=== PATIENT | female | born 1940 | race Caucasian/White ===

== ENCOUNTER 2016-05-16 15:17 | Emergency (ER) | payer MEDICARE, OTHER ==
[~2016-05-16] VITALS: Ht 157.5 cm; Wt 90.7 kg
[~2016-05-16 15:17] MED LIST: AC325T PO; ACDPT PO; ALPR1T PO; ASP325TEC PO; BACL10TA PO; CA C1TAB26 PO; CYAN10007 PO; DCS100C PO; ESCI5TAB PO; FERR28TA PO; FLX20C; MAGN250T35 PO; MELA1TAB15 PO; METO1TAB28 PO; METO25TA2 PO; MULT-608 PO; NF-ESOM40C PO; OMEP-10 PO; OMG1KC PO; SIMV40TA2 PO; TMZP15C; UBID100C17 PO; UBID300C PO
--- OUTSIDE RECORDS SUMMARY | 2016-05-16 15:22 | XMS REPORT ---
Author NELLA Kahn [facility] eClinicalWorks Address Unknown Phone Unavailable Care Team Providers Care Tour Production Supervisor Name Role Phone NELLA UP CP Unavailable Allergies No Known Allergies Problems No Known Problems Medications No Known Medications Results No Known Results Summary Purpose eClinicalWorks Submission
[2016-05-16] MEDS ORDERED: ACET-2267 PO (16:16)
[2016-05-16] MEDS ORDERED: fentaNYL INJECTION 100 MCG/2 ML AMP IVP STA ×2 (16:31→18:21)
--- NOTE | 2016-05-16 16:37 | ED Fall/Injury ---
General Chief Complaint: Trauma-Non Activation Stated Complaint: FALL/COLLAR BONE INJ/R SIDE PAIN Nursing Triage Note: AMBULATED TO ROOM 07 ET STATES SHE TRIPPED IN HER BEDROOM CAUSING HER TO FALL. HIT HER CHEST ON THE DRESSER CORNER ET ALSO HIT HER CHIN ON THE DRESSER. Source: patient History of Present Illness Time seen by provider: 16:20 Initial Comments PT ARRIVES VIA POV FROM HOME PT STATES SHE TRIPPED AND FELL IN HER BEDROOM, AND HIT CHEST ON THE CORNER OF THE DRESSER, AND ALSO HIT CHIN ON DRESSER OCCURRED TODAY AT 1430 NO LOSS OF CONSCIOUSNESS NO DIZZINESS NO VISION CHANGES NO PARESTHESIAS OR MOTOR DEFICITS NO NAUSEA//VOMITING NO ABDOMINAL PAIN CHEST HURTS TO MOVE NO SHORTNESS OF BREATH NO NECK OR BACK PAIN NO DENTAL/MOUTH PAIN C/O CHIN, CHEST AND RIGHT SHOULDER PAIN PCP: DR. GALVIN--SEEN LAST WEEK FOR ROUTINE EXAM AND RIGHT BREAST PAIN X 1 MONTH--MAMMOGRAM NEXT TUESDAY Allergies and Home Medications Allergies Coded Allergies: quinine (Verified Allergy, Unknown, 11/16/05) Home Medications Acetaminophen 500 Mg Tablet 500 MG PO HS (Reported) Aspirin 325 Mg Tablet 81 MG PO DAILY (Reported) Ca Cmb No.1/Vit D3/B-6/Fa/B12 1 Each Tablet 1 EACH PO DAILY (Reported) Melatonin/Pyridoxine 1 Each Tablet 1 EACH PO HS (Reported) Metoprolol Succinate/Hctz 1 Each Tab.er.24h 1 EACH PO DAILY (Reported) Multivitamins 1 Tab Tablet 1 TAB PO DAILY (Reported) Ash 3 Polyunsat Fatty Acids 1,000 Mg Cap 1 TAB PO DAILY (Reported) Omeprazole 20 Mg Capsule.dr 40 MG PO DAILY (Reported) Simvastatin 40 Mg Tablet 1 TAB PO HS (Reported) Tramadol HCl 50 Mg Tablet #20 50 MG PO Q4H Prescribed by: ISIDRA DUPREE on 05/16/16 1824 Constitutional: no symptoms reported Eyes: No Symptoms Reported Ears, Nose, Mouth, Throat: no symptoms reported Respiratory: no symptoms reported Cardiovascular: see HPI Gastrointestinal: no symptoms reported Genitourinary: no symptoms reported Musculoskeletal: see HPI Skin: other (ABRASION TO CHEST) Psychiatric/Neurological: No Symptoms Reported Past Imfnkzw-Wimfqh-Ietxsk Hx Patient Social History Alcohol Use: Denies Use Recreational Drug Use: No Smoking Status: Never a Smoker Recent Foreign Travel: No Contact w/Someone Who Travel: No Recent Infectious Disease Expo: No Recent Hopitalizations: No Immunizations Up To Date Date of Pneumonia Vaccine: Feb 09, 2010 Date of Influenza Vaccine: Dec 14, 2013 Surgeries HX Surgeries: Yes (HIATAL HERNIA REPAIR, RIGHT KNEE REPLACEMENT, COLONOSCOPY; CABG 2006; HYST/BSO) Surgeries: Abdominal, Appendectomy, Cardiac, CABG, Gallbladder, Hysterectomy, Joint Replacement, Orthopedic Respiratory Hx Respiratory Disorders: No Cardiovascular Hx Cardiac Disorders: Yes Cardiac Disorders: Coronary Artery Disease, Heart Attack, High Cholesterol, Hypertension, Peripheral Vascular Neurological Hx Neurological Disorders: No Reproductive System Hx Reproductive Disorders: No Sexually Transmitted Disease: 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, 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 Genitourinary Hx Genitourinary Disorders: Yes Genitourinary Disorders: UTI-Chronic Gastrointestinal Hx Gastrointestinal Disorders: Yes (SPASTIC COLON/HIATAL HERNIA/GI BLEED-ULCERS ) Gastrointestinal Disorders: Gastroesophageal Reflux, Gastrointestinal Bleed, Hiatal Hernia, Ulcer Musculoskeletal Hx Musculoskeletal Disorders: Yes (RIGHT KNEE REPLACEMENT) Musculoskeletal Disorders: Arthritis Endocrine Hx Endocrine Disorders: Yes ("DIET CONTROLLED", OBESITY) Endocrine Disorders: Diabetes, Non-Insulin dep HEENT HX ENT Disorders: No Cancer Hx Cancer: No Psychosocial Hx Psychiatric Problems: Yes Behavioral Health Disorders: Anxiety Integumentary HX Skin/Integumentary Disorder: No Blood Transfusions Hx Blood Disorders: No Physical Exam Vital Signs Vital Sign - Last 12Hours 05/16/16 16:09 Temp 98.0 Pulse 65 Resp 16 B/P 173/87 Pulse Ox 98 Capillary Refill : Less Than 3 Seconds General Appearance: WD/WN HEENT: PERRL/EOMI other (BRUISING AND TENDERNESS TO CHIN. NO TRISMUS. NO INTRAORAL INJURY) Neck: other (PLACED IN C-COLLAR ON ARRIVAL) Cardiovascular: regular rate, rhythm no murmur Respiratory: normal breath sounds no respiratory distress no accessory muscle use other (ABRASION AND BRUSING TO CENTER OF UPPER CHEST WITH TENDERNESS) Gastrointestinal: normal bowel sounds non tender soft no organomegaly Extremities: no pedal edema no calf tenderness normal capillary refill other ( TENDERNESS TO ANTERIOR RIGHT SHOULDER. ) Neurologic/Psychiatric: occupational therapy co director II-XII nml as tested no motor/sensory deficits alert normal mood/affect oriented x 3 Skin: normal color warm/dry Gypsy Coma Score Best Eye Response: (4) Open Spontaneously Best Verbal Response: (5) Oriented Best Motor Response: (6) Obeys Commands Gypsy Total: 15 Splinting and Joint Reduction : Cervical Collars: [place]-Adult Progress/Results/Core Measures Results/Orders Lab Results Laboratory Tests Test 05/16/16 16:48 Range/Units Activated Partial Thromboplast Time 25 24-35 SEC Alanine Aminotransferase (ALT/SGPT) 12 0-55 U/L Albumin 3.9 3.2-4.5 G/DL Alkaline Phosphatase 69 40-136 U/L Amylase Level 36 25-125 U/L Anion Gap 9 5-14 MMOL/L Aspartate Amino Transf (AST/SGOT) 20 5-34 U/L BUN/Creatinine Ratio 22 Basophils # (Auto) 0.0 0.0-0.1 10^3/uL Basophils (%) (Auto) 0 0-10 % Blood Urea Nitrogen 25 H 7-18 MG/DL Calcium Level 9.5 8.5-10.1 MG/DL Carbon Dioxide Level 21 21-32 MMOL/L Chloride Level 112 H 98-107 MMOL/L Creatine Kinase MB 1.3 <6.6 NG/ML Creatinine 1.14 0.60-1.30 MG/DL Eosinophils # (Auto) 0.2 0.0-0.3 10^3/uL Eosinophils (%) (Auto) 3 0-10 % Estimat Glomerular Filtration Rate 46 Glucose Level 109 H 70-105 MG/DL Hematocrit 38 35-52 % Hemoglobin 12.8 11.5-16.0 G/DL INR Comment 1.0 0.8-1.4 Lymphocytes # (Auto) 3.0 1.0-4.0 X 10^3 Lymphocytes (%) (Auto) 42 12-44 % Magnesium Level 2.2 1.8-2.4 MG/DL Mean Corpuscular Hemoglobin 30 25-34 PG Mean Corpuscular Hemoglobin Concent 34 32-36 G/DL Mean Corpuscular Volume 90 80-99 FL Mean Platelet Volume 11.4 H 7.4-10.4 FL Monocytes # (Auto) 0.5 0.0-1.0 X 10^3 Monocytes (%) (Auto) 8 0-12 % Neutrophils # (Auto) 3.2 1.8-7.8 X 10^3 Neutrophils (%) (Auto) 46 42-75 % Platelet Count 170 130-400 10^3/uL Potassium Level 4.3 3.6-5.0 MMOL/L Prothrombin Time 13.1 12.2-14.7 SEC Red Blood Count 4.23 L 4.35-5.85 10^6/uL Red Cell Distribution Width 13.7 10.0-14.5 % Sodium Level 142 135-145 MMOL/L Total Bilirubin 0.3 0.1-1.0 MG/DL Total Creatine Kinase 48 29-168 U/L Total Protein 6.3 L 6.4-8.2 G/DL Troponin I < 0.30 <0.30 NG/ML White Blood Count 7.0 4.3-11.0 10^3/uL My Orders Orders-ISIDRA DUPREE DO Saline Lock/Iv-Start (05/16/16 16:22) Ekg Tracing (05/16/16 16:22) Monitor-Rhythm Ecg Trace Only (05/16/16 16:22) Ct Head/Face/Cervical Wo (05/16/16 16:22) Amylase (05/16/16 16:22) Cbc With Automated Diff (05/16/16 16:22) Comprehensive Metabolic Panel (05/16/16 16:22) Creatine Kinase (05/16/16 16:22) Creatine Kinase Mb (05/16/16 16:22) Magnesium (05/16/16 16:22) Protime With Inr (05/16/16 16:22) Partial Thromboplastin Time (05/16/16 16:22) Troponin I (05/16/16 16:22) Cervical Collar (05/16/16 16:22) Chest 1 View, Ap/Pa Only (05/16/16 16:22) Ct Chest/Abdomen/Pelvis W (05/16/16 16:22) Fentanyl Injection (Sublimaze Injection (05/16/16 16:31) Shoulder, Right, 3 Views (05/16/16 16:33) Iohexol Injection (Omnipaque 350 Mg/Ml 1 (05/16/16 17:15) Ns (Ivpb) (Sodium Chloride 0.9% Ivpb Bag (05/16/16 17:15) Saline Lock/Iv-Start (05/16/16 17:56) Ns Iv 1000 Ml (Sodium Chloride 0.9%) (05/16/16 17:56) Ketorolac Injection (Toradol Injection) (05/16/16 18:30) Fentanyl Injection (Sublimaze Injection (05/16/16 18:21) Medications Given in ED Current Medications Medications Dose Ordered Sig/Rocio Route Start Time Stop Time Status Last Admin Dose Admin Iohexol 100 ml ONCE ONCE IV 05/16/16 17:15 05/16/16 17:16 DC 05/16/16 17:36 75 ML Sodium Chloride 1,000 ml @ 0 mls/hr Q0M ONCE IV 05/16/16 17:56 05/16/16 17:57 DC 05/16/16 18:25 1,000 MLS/HR Sodium Chloride 100 ml 100 ml ONCE ONCE IV 05/16/16 17:15 05/16/16 17:16 DC 05/16/16 17:36 80 ML Vital Signs/I&O Vital Sign - Last 12Hours 05/16/16 16:09 Temp 98.0 Pulse 65 Resp 16 B/P 173/87 Pulse Ox 98 Blood Pressure Mean: 115 Progress Note : Progress Note 1820--CERVICAL COLLAR REMOVED AFTER CT RESULTS OBTAINED. PT DOES NOT C/O NECK PAIN AND NECK IS NON-TENDER ECG Initial ECG Impression Time: 15:15 Initial ECG Rate: 64 Initial ECG Rhythm: Normal Sinus Initial ECG Impression: Normal Initial ECG Comparisson: Unchanged Diagnostic Imaging Comments CT HEAD/MAXILLOFACIALS/CERVICAL SPINE--NO ACUTE PROCESS, CHRONIC CHANGES CT CHEST/ABDOMEN/PELVIS--NO ACUTE PROCESS CXR--NO ACUTE PROCESS XRAYS RIGHT SHOULDER--NO ACUTE PROCESS ALL PER RADIOLOGIST REPORTS @ 1812 Reviewed: Reviewed by Me Departure Impression Impression: Primary Impression: ANTERIOR CHEST CONTUSION Additional Impressions: Chin contusion Status post fall Disposition: 01 HOME, SELF-CARE Condition: Stable Departure-Patient Inst. Referrals: SHAHZAD GALVIN DO (PCP/Family) Primary Care Physician Patient Instructions: CHEST CONTUSION, Contusion (DC), Preventing Falls in the Older Adult Add. Discharge Instructions: ICE TO SORE AREAS AT 20 MINUTE INTERVALS ACTIVITIES TOLERATED TYLENOL 1 GRAM /MOTRIN 800 MG 4 TIMES A DAY FOR PAIN FOLLOW UP WITH YOUR DR IN 1 WEEK IF NO BETTER All discharge instructions reviewed with patient and/or family. Voiced understanding. Scripts Tramadol HCl (Ultram)50 Mg [id number] Mg PO Q4H #20 TAB Prov:ISIDRA DUPREE DO 05/16/16 ISIDRA DUPREE DO May 16, 2016 16:37
[2016-05-16 17:01] LABS: BASOPHILS % (AUTO) 0 % (0-10); EOSINOPHILS # (AUTO) 0.2 10^3/uL (0.0-0.3); EOSINOPHILS % (AUTO) 3 % (0-10); LYMPHOCYTES % (AUTO) 42 % (12-44); MEAN CORPUSCULAR HEMOGLOBIN 30 PG (25-34); MEAN CORPUSCULAR HGB CONC 34 G/DL (32-36); MEAN CORPUSCULAR VOLUME 90 FL (80-99); MEAN PLATELET VOLUME 11.4 FL (7.4-10.4); MONOCYTES # (AUTO) 0.5 X 10^3 (0.0-1.0); MONOCYTES % (AUTO) 8 % (0-12); NEUTROPHILS # (AUTO) 3.2 X 10^3 (1.8-7.8); NEUTROPHILS % (AUTO) 46 % (42-75); PLATELET COUNT 170 10^3/uL (130-400); RED BLOOD COUNT 4.23 10^6/uL (4.35-5.85); RED CELL DISTRIBUTION WIDTH 13.7 % (10.0-14.5)
[2016-05-16 17:05] LABS: PROTHROMBIN TIME PATIENT 13.1 SEC (12.2-14.7)
[2016-05-16] MEDS ORDERED: NS 100 ML (IVPB) BAG IV ONE (17:15)
[2016-05-16] MEDS ORDERED: IOHEXOL 350 MG/ML 100 ML (OMNIPAQUE 350) VIAL IV ONE (17:15)
[2016-05-16 17:16] LABS: ALANINE AMINOTRANSFERASE 12 U/L (0-55); ALBUMIN 3.9 G/DL (3.2-4.5); AMYLASE 36 U/L (25-125); ANION GAP 9 MMOL/L (5-14); ASPARTATE AMINO TRANSFERASE 20 U/L (5-34); BILIRUBIN,TOTAL 0.3 MG/DL (0.1-1.0); BLOOD UREA NITROGEN 25 MG/DL (7-18); BUN/CREATININE RATIO 22; CALCIUM 9.5 MG/DL (8.5-10.1); CARBON DIOXIDE 21 MMOL/L (21-32); CHLORIDE 112 MMOL/L (98-107); CREATINE KINASE 48 U/L (29-168); CREATININE SERUM 1.14 MG/DL (0.60-1.30); GFR ESTIMATED 46; GLUCOSE 109 MG/DL (70-105); MAGNESIUM 2.2 MG/DL (1.8-2.4); POTASSIUM 4.3 MMOL/L (3.6-5.0); SODIUM 142 MMOL/L (135-145); TOTAL PROTEIN 6.3 G/DL (6.4-8.2)
--- NOTE | 2016-05-16 17:20 | Diagnostic Imaging Report ---
INDICATION: Fall with right shoulder pain. DISCUSSION: Three views of the right shoulder were obtained, no comparison. Moderate degenerative changes are noted within the acromioclavicular joint. Mild degenerative changes are present within the glenohumeral joint. Alignment is anatomic. No fracture or dislocation. Soft tissues are unremarkable. IMPRESSION: 1. No acute abnormality identified within the right shoulder. Dictated by: Dictated on workstation # [id number]
[2016-05-16 17:22] LABS: TROPONIN I < 0.30 NG/ML (<0.30)
--- NOTE | 2016-05-16 17:28 | Diagnostic Imaging Report ---
INDICATION: Fall with subsequent chest pain. DISCUSSION: Single portable supine view of the chest was obtained, comparison 05/15/2014. Median sternotomy is stable. Scarring within the lingula is stable. Mild elevation of the right hemidiaphragm. No focal consolidation, pleural fluid, or pneumothorax. IMPRESSION: 1. No acute cardiopulmonary process. Dictated by: Dictated on workstation # [id number]
[2016-05-16] MEDS ORDERED: NS IV 1000 ML 1,000 ML IV ONE (17:56)
--- NOTE | 2016-05-16 18:05 | Diagnostic Imaging Report ---
Procedure: CT head, face, and cervical spine without contrast. Technique: Multiple contiguous axial images were obtained through the head, neck, and facial bones without the use of intravenous contrast. Sagittal and coronal reformations through the cervical spine and facial bones were also performed. Indication: Patient fell and hit chin on a dresser, head and neck pain with bruising on the chin. Comparison: 11/23/2012. Discussion: Chronic appearing lacunar infarct within the right basal ganglia. No acute intracranial hemorrhage, mass, midline shift or hydrocephalus. The ventricles and sulci are normal size and configuration for age. The patient is edentulous. No acute facial fracture identified. The visualized orbits, paranasal sinuses, mastoid air cells and calvarium are unremarkable. Moderate degenerative changes are noted diffusely throughout the cervical spine. No acute fracture or subluxation. The visualized paraspinal soft tissues are unremarkable. Impression: 1. Senescent intracranial changes, as described. No acute intracranial abnormality identified. 2. No acute facial fracture identified. 3. Degenerative changes of the cervical spine. No acute fracture identified. Dictated by: Dictated on workstation # [id number]
--- NOTE | 2016-05-16 18:06 | Diagnostic Imaging Report ---
Procedure: CT chest, abdomen, and pelvis with contrast. Technique: Multiple contiguous axial images were obtained through the chest, abdomen, and pelvis after the administration of intravenous contrast. Indication: Fall with generalized body pain. Comparison: None. Discussion: Subsegmental atelectasis is present within the bilateral lung bases. No focal consolidation or pulmonary nodule. No pneumothorax. Normal heart size. No pleural or pericardial fluid. The thoracic aorta is normal in caliber and configuration. The pulmonary arteries are normal in caliber. Median sternotomy is present. No mediastinal, hilar or axillary adenopathy. No acute osseous abnormality is identified. Small hiatal hernia. The gallbladder is likely surgically absent. The liver, pancreas, spleen, adrenal glands, kidneys and urinary bladder are unremarkable. Uterus is surgically absent. Mild diverticulosis with no secondary evidence for diverticulitis. Mild constipation. No obstruction, pneumatosis or pneumoperitoneum. The abdominal aorta is normal in caliber. No ascites or pathologically enlarged lymph nodes are identified. No acute osseous abnormality identified. Impression: 1. No acute abnormality identified within the chest. 2. Mild constipation. 3. Mild diverticulosis. Dictated by: Dictated on workstation # [id number]
[2016-05-16] MEDS ORDERED: TRAM-42 PO (18:24)
[2016-05-16] MEDS ORDERED: KETOROLAC 30 MG/ML VIAL IVP ONE (18:30)
[2016-05-16] MEDS ORDERED: RX-TRAMADOL 50 MG (ULTRAM) TAB PPK#4 PO STA (19:18)
[2016-05-16 19:29] VITALS: BP 167/79
== END 2016-05-16 19:29 | disposition home or self-care (01) ==
LOC: EDUNIT# 15:17 → ER 15:19
DX: S20.311A Abrasion of right front wall of thorax, initial encounter (principal); S20.312A Abrasion of left front wall of thorax, initial encounter; S00.83XA Contusion of other part of head, initial encounter; K57.30 Diverticulosis of large intestine without perforation or abscess without bleeding; M47.812 Spondylosis without myelopathy or radiculopathy, cervical region; K44.9 Diaphragmatic hernia without obstruction or gangrene; I10 Essential (primary) hypertension; I25.10 Atherosclerotic heart disease of native coronary artery without angina pectoris; E66.9 Obesity, unspecified; I25.2 Old myocardial infarction; Z79.82 Long term (current) use of aspirin; Z79.899 Other long term (current) drug therapy; Z95.1 Presence of aortocoronary bypass graft; W18.09XA Striking against other object with subsequent fall, initial encounter; Y92.013 Bedroom of single-family (private) house as the place of occurrence of the external cause; Y99.8 Other external cause status
CPT/HCPCS: 36415; 70450; 70486; 71010; 71260; 72125; 73030; 74177; 80053; 82150; 82550; 82553; 83735; 84484; 85025; 85610; 85730; 93005; 93041; 96361; 96374; 96375; 96376

== ENCOUNTER → 2016-05-28 | Outpatient (CLI) | payer MEDICARE, OTHER ==
[~2016-05-28] MED LIST changes: +ACET-2267 PO; +TRAM-42 PO
--- NOTE | 2016-05-28 16:49 | Diagnostic Imaging Report ---
EXAMINATION: Bilateral breast ultrasound. INDICATION: Bilateral breast pain in the medial aspect of each breast. FINDINGS: The four quadrants and retroareolar region of each breast were scanned with no abnormality seen. IMPRESSION: Negative study. Clinical followup of areas of pain recommended. ACR BI-RADS Category 1: Negative. Result letter will be mailed to the patient. Note: At least 10% of breast cancer is not imaged by mammography. Dictated by: Dictated on workstation # [id number]
--- NOTE | 2016-05-28 16:50 | Diagnostic Imaging Report ---
EXAMINATION: Bilateral breast digital diagnostic mammogram with CAD. The current study was also evaluated with a Computer Aided Detection (CAD) system. INDICATION: Bilateral medial breast pain. COMPARISON: 06/19/12. FINDINGS: The breasts are composed of scattered fibroglandular densities. There are benign-appearing calcifications seen. No mass, architectural distortion or suspicious calcification seen. IMPRESSION: No mammographic evidence of malignancy. Ultrasound evaluation pending. ACR BI-RADS Category 0: Incomplete. (Needs additional imaging evaluation). Result letter will be mailed to the patient. Note: At least 10% of breast cancer is not imaged by mammography. Dictated by: Dictated on workstation # [id number]
== END ==
LOC: RAD 09:08
PROVIDERS: ATTEND Family Medicine
DX: N64.4 Mastodynia (principal)
CPT/HCPCS: 77066

== ENCOUNTER 2016-10-14 14:45 | Outpatient (RCR) | payer MEDICARE, OTHER ==
[~2016-10-14 14:45] MED LIST changes: -METO1TAB28 PO; +METO1TAB35 PO
== END 2016-10-14 15:31 | disposition home or self-care (01) ==
PROVIDERS: ATTEND Family Medicine
DX: M51.36 Other intervertebral disc degeneration, lumbar region (principal)

== ENCOUNTER → 2017-07-09 | Outpatient (CLI) | payer MEDICARE, OTHER ==
--- NOTE | 2017-07-09 10:26 | Diagnostic Imaging Report ---
PROCEDURE: MR imaging cervical spine without contrast. TECHNIQUE: Multiplanar, multisequence MR imaging of the cervical spine was performed without contrast. INDICATION: Neck pain with right arm radiculopathy. COMPARISON: None available. FINDINGS: Normal alignment of the cervical spine. No fracture or marrow replacing process. No features of active facet synovitis. The cervical cord is normal in size and signal. The cerebellar tonsils are normal in position. No cervical lymphadenopathy. C2-C3: No spinal stenosis or foraminal narrowing. C3-C4: No spinal stenosis. Left uncovertebral joint hypertrophy results in moderate to severe left foraminal narrowing. C4-C5: No spinal stenosis. Right uncovertebral joint hypertrophy and facet osteoarthritis results in moderate right foraminal narrowing. C5-C6: Central and bilateral paracentral disc osteophyte complex with ligamentum flavum thickening results in mild spinal stenosis without mass effect on the cord. Moderate left and mild right foraminal narrowing due to facet and uncovertebral joint hypertrophy. C6-C7: Central and bilateral paracentral disc osteophyte complex results in minimal spinal stenosis. No significant foraminal narrowing. C7-T1: No spinal stenosis or foraminal narrowing. IMPRESSION: 1. Mild degenerative disc disease and posterior element hypertrophy at C5-C6 causes mild spinal stenosis. No additional foci of significant spinal canal narrowing. 2. Varying degrees of neuroforaminal narrowing are present and greatest on the left at C3-C4 with severe stenosis. Dictated by: Dictated on workstation # [id number]
== END ==
LOC: RAD 09:13
PROVIDERS: ATTEND Family Medicine
DX: M48.02 Spinal stenosis, cervical region (principal); M99.71 Connective tissue and disc stenosis of intervertebral foramina of cervical region; M50.322 Other cervical disc degeneration at C5-C6 level
CPT/HCPCS: 72141

== ENCOUNTER 2017-09-05 11:15 | Outpatient (RCR) | payer MEDICARE, OTHER | END 2017-09-05 13:09 | disposition home or self-care (01) | PROVIDERS: ATTEND Nurse Practitioner Family | DX: M19.90 Unspecified osteoarthritis, unspecified site (principal); M48.00 Spinal stenosis, site unspecified ==

== ENCOUNTER 2017-11-18 16:20 | Emergency (ER) | payer MEDICARE, OTHER ==
[~2017-11-18] VITALS: Ht 157.5 cm; Wt 95.3 kg
--- OUTSIDE RECORDS SUMMARY | 2017-11-18 16:25 | XMS REPORT ---
Author NELLA Kahn [facility] eClinicalWorks Address Unknown Phone Unavailable Care Team Providers Care Chief Digital Media Officer Name Role Phone NELLA UP CP Unavailable Allergies No Known Allergies Problems No Known Problems Medications No Known Medications Results No Known Results Summary Purpose eClinicalWorks Submission
--- OUTSIDE RECORDS SUMMARY | 2017-11-18 16:26 | XMS REPORT | Continuity of Care Document ---
Author Author [facility] Organization [facility] Address Unknown Phone Unavailable Allergies Active Description Code Type Severity Reaction Onset Reported/Identified Relationship to Patient Clinical Status Yes quinine [id number] Drug Allergy Unknown N/A 12/19/2014 Medications There is no data. Problems Date Dx Coded Attending Type Code Diagnosis Diagnosed By 02/04/1308 LESVIA GALLAGHER APRN Ot M19.90 UNSPECIFIED OSTEOARTHRITIS, UNSPECIFIED 02/04/1308 LESVIA GALLAGHER APRN Ot M48.00 SPINAL STENOSIS, SITE UNSPECIFIED 02/03/1530 SHAHZAD GUAMAN DO Ot M51.36 OTHER INTERVERTEBRAL DISC DEGENERATION, 09/23/2011 Ot 722.52 LUMB/ LUMBOSAC DISC DEGEN 09/23/2011 Ot V57.1 PHYSICAL THERAPY NEC 11/23/2012 MARY LOVETT, GUILLERMO Atkins Ot 401.9 HYPERTENSION NOS 11/23/2012 MARY LOVETT, GUILLERMO Atkins Ot 433.10 CAROTID ARTERY OCCLUSION W O CEREBRAL IN 11/23/2012 MARY LOVETT, GUILLERMO Atkins Ot 784.0 HEADACHE 11/23/2012 MARY LOVETT, GUILLERMO Atkins Ot V58.69 OTH MED,LT,CURRENT USE 05/16/2014 Ot 401.9 HYPERTENSION NOS 05/16/2014 Ot 414.00 CORON ATHEROSCLER NOS TYPE VESSEL, NATIV 05/16/2014 Ot 530.81 ESOPHAGEAL REFLUX 05/16/2014 Ot 786.59 CHEST PAIN NEC 05/16/2014 Ot V45.81 AORTOCORONARY BYPASS 06/10/2014 SHAHZAD GUAMAN DO S Ot 724.1 06/10/2014 SHAHZAD GUAMAN DO S Ot V57.1 06/19/2014 SHAHZAD GUAMAN DO S Ot 724.1 PAIN IN THORACIC SPINE 06/19/2014 SHAHZAD GUAMAN DO Ot V57.1 PHYSICAL THERAPY NEC 12/19/2014 JIMENEZ PATRICK CHIN Ot K31.7 POLYP OF STOMACH AND DUODENUM 12/19/2014 JIMENEZ PATRICK CHIN Ot K52.9 NONINFECTIVE GASTROENTERITIS AND COLITIS 12/19/2014 JIMENEZ PATRICK CHIN Ot K57.90 DVRTCLOS OF INTEST, PART UNSP, W/O PERF 12/19/2014 PATRICK JIMENEZ DO Ot Z12.11 ENCOUNTER FOR SCREENING FOR MALIGNANT NE 12/19/2014 PATRICK JIMENEZ DO Ot Z80.0 FAMILY HISTORY OF MALIGNANT NEOPLASM OF 05/16/2016 Ot 611.71 MASTODYNIA 05/16/2016 Ot Z01.818 ENCOUNTER FOR OTHER PREPROCEDURAL EXAMIN 05/16/2016 Ot Z12.11 ENCOUNTER FOR SCREENING FOR MALIGNANT NE 05/16/2016 Ot Z80.0 FAMILY HISTORY OF MALIGNANT NEOPLASM OF 05/16/2016 ISIDRA DUPREE DO Ot E66.9 OBESITY, UNSPECIFIED 05/16/2016 ISIDRA DUPREE DO Ot I10 ESSENTIAL (PRIMARY) HYPERTENSION 05/16/2016 ISIDRA DUPREE DO Ot I25.10 ATHSCL HEART DISEASE OF [place] CORONARY 05/16/2016 ISIDRA DUPREE DO Ot I25.2 OLD MYOCARDIAL INFARCTION 05/16/2016 ISIDRA DUPREE DO, Ot K44.9 DIAPHRAGMATIC HERNIA WITHOUT OBSTRUCTION 05/16/2016 ISIDRA DUPREE DO Ot K57.30 DVRTCLOS OF LG INT W/O PERFORATION OR AB 05/16/2016 ISIDRA DUPREE DO, Ot M47.812 SPONDYLOSIS W/O MYELOPATHY OR RADICULOPA 05/16/2016 ISIDRA DUPREE DO Ot S00.83XA CONTUSION OF OTHER PART OF HEAD, INITIAL 05/16/2016 ISIDRA DUPREE DO Ot S20.311A ABRASION OF RIGHT FRONT WALL OF THORAX, 05/16/2016 ISIDRA DUPREE DO Ot S20.312A ABRASION OF LEFT FRONT WALL OF THORAX, I 05/16/2016 ISIDRA DUPREE DO, Ot S29.9XXA UNSPECIFIED INJURY OF THORAX, INITIAL EN 05/16/2016 ISIDRA DUPREE DO Ot W18.09XA STRIKING AGAINST OTH OBJECT W SUBSEQUENT 05/16/2016 ISIDRA DUPREE DO Ot Y92.013 BEDROOM OF SINGLE-FAMILY (PRIVATE) HOUSE 05/16/2016 JOON ISIDRA CHIN Ot Y99.8 OTHER EXTERNAL CAUSE STATUS 05/16/2016 MASSEY ISIDRA CHIN Ot 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 05/16/2016 JOON ISIDRA CHIN Ot Z79.899 OTHER SHELTER (CURRENT) DRUG THERAPY 05/16/2016 JOON ISIDRA CHIN Ot Z95.1 PRESENCE OF AORTOCORONARY BYPASS GRAFT 05/18/2016 JOON ISIDRA CHIN Ot E66.9 OBESITY, UNSPECIFIED 05/18/2016 JOON ISIDRA CHIN Ot I10 ESSENTIAL (PRIMARY) HYPERTENSION 05/18/2016 JOON ISIDRA CHIN Ot I25.10 ATHSCL HEART DISEASE OF [place] CORONARY 05/18/2016 JOON ISIDRA CHIN Ot I25.2 OLD MYOCARDIAL INFARCTION 05/18/2016 JOON ISIDRA CHIN Ot K44.9 DIAPHRAGMATIC HERNIA WITHOUT OBSTRUCTION 05/18/2016 JOON ISIDRA CHIN Ot K57.30 DVRTCLOS OF LG INT W/O PERFORATION OR AB 05/18/2016 JOON ISIDRA CHIN Ot M47.812 SPONDYLOSIS W/O MYELOPATHY OR RADICULOPA 05/18/2016 JOON ISIDRA CHIN Ot S00.83XA CONTUSION OF OTHER PART OF HEAD, INITIAL 05/18/2016 JOON ISIDRA CHIN Ot S20.311A ABRASION OF RIGHT FRONT WALL OF THORAX, 05/18/2016 JOON ISIDRA CHIN Ot S20.312A ABRASION OF LEFT FRONT WALL OF THORAX, I 05/18/2016 JOON ISIDRA CHIN Ot S29.9XXA UNSPECIFIED INJURY OF THORAX, INITIAL EN 05/18/2016 JOON ISIDRA CHIN Ot W18.09XA STRIKING AGAINST OTH OBJECT W SUBSEQUENT 05/18/2016 JOON ISIDRA CHIN Ot Y92.013 BEDROOM OF SINGLE-FAMILY (PRIVATE) HOUSE 05/18/2016 JOON ISIDRA CHIN Ot Y99.8 OTHER EXTERNAL CAUSE STATUS 05/18/2016 JOON ISIDRA CHIN Ot Z79.82 SHELTER (CURRENT) USE OF ASPIRIN 05/18/2016 JOONISIDRA Santana DO Ot Z79.899 OTHER WAX PATTERN REPAIRER (CURRENT) DRUG THERAPY 05/18/2016 ISIDRA DUPREE DO Ot Z95.1 PRESENCE OF AORTOCORONARY BYPASS GRAFT 05/28/2016 Ot 611.71 MASTODYNIA 05/28/2016 Ot Z01.818 ENCOUNTER FOR OTHER PREPROCEDURAL EXAMIN 05/28/2016 Ot Z12.11 ENCOUNTER FOR SCREENING FOR MALIGNANT NE 05/28/2016 Ot Z80.0 FAMILY HISTORY OF MALIGNANT NEOPLASM OF 05/28/2016 ORENDER DO, SHAHZAD S Ot N64.4 MASTODYNIA 05/28/2016 ORENDER DO, SHAHZAD S Ot N64.4 MASTODYNIA 05/28/2016 Ot 611.71 MASTODYNIA 05/28/2016 Ot Z01.818 ENCOUNTER FOR OTHER PREPROCEDURAL EXAMIN 05/28/2016 Ot Z12.11 ENCOUNTER FOR SCREENING FOR MALIGNANT NE 05/28/2016 Ot Z80.0 FAMILY HISTORY OF MALIGNANT NEOPLASM OF 05/28/2016 GUNNERNDER DO, SHAHZAD S Ot N64.4 [facility]STODYNIA 05/28/[facility] S Ot N64.4 MASTODYNIA 05/28/2016 ORENDER DO, SHAHZAD S Ot N64.4 MASTODYNIA 05/29/2016 ORENDER DO, SHAHZAD S Ot N64.4 MASTODYNIA 05/31/2016 GUNNERNDER DO, SHAHZAD S Ot N64.4 MASTODYNIA 06/18/2016 GUNNERNDER DO, SHAHZAD S Ot N64.4 MASTODYNIA 09/23/2016 GUNNERNDER DO, SHAHZAD S Ot M51.36 OTHER INTERVERTEBRAL DISC DEGENERATION, 09/24/2016 GUNNERNDER DO, SHAHZAD S Ot M51.36 OTHER INTERVERTEBRAL DISC DEGENERATION, 09/30/2016 GNUNERNDER DO, SHAHZAD S Ot M51.36 OTHER INTERVERTEBRAL DISC DEGENERATION, 10/14/2016 GUNNERNDER DO, SHAHZAD S Ot M51.36 OTHER INTERVERTEBRAL DISC DEGENERATION, 07/16/2017 GLENIS CHIN SHAHZAD S Ot M48.02 SPINAL STENOSIS, CERVICAL REGION 07/16/2017 GLENIS CHIN SHAHZAD S Ot 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 07/16/2017 GLENIS CHIN SHAHZAD S Ot M99.71 CONN TISS AND DISC STENOSIS OF INTVRT FO 07/29/2017 GUNNERNDER DO, SHAHZAD Roberts Ot M48.02 SPINAL STENOSIS, CERVICAL REGION 07/29/2017 GUNNERNDER DO, SHAHZAD Roberts Ot 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 Results Test Result Range Complete blood count (CBC) with automated white blood cell (WBC) differential - 05/16/16 16:48 Blood leukocytes automated count (number/volume) 7.0 10*3/uL 4.3-11.0 Blood erythrocytes automated count (number/volume) 4.23 10*6/uL 4.35-5.85 Venous blood hemoglobin measurement (mass/volume) 12.8 g/dL 11.5-16.0 Blood hematocrit (volume fraction) 38 % 35-52 Automated erythrocyte mean corpuscular volume 90 [foz_us] 80-99 Automated erythrocyte mean corpuscular hemoglobin (mass per erythrocyte) 30 pg 25-34 Automated erythrocyte mean corpuscular hemoglobin concentration measurement ( mass/volume) 34 g/dL 32-36 Automated erythrocyte distribution width ratio 13.7 % 10.0-14.5 Automated blood platelet count (count/volume) 170 10*3/uL 130-400 Automated blood platelet mean volume measurement 11.4 [foz_us] 7.4-10.4 Automated blood neutrophils/100 leukocytes 46 % 42-75 Automated blood lymphocytes/100 leukocytes 42 % 12-44 Blood monocytes/100 leukocytes 8 % 0-12 Automated blood eosinophils/100 leukocytes 3 % 0-10 Automated blood basophils/100 leukocytes 0 % 0-10 Blood neutrophils automated count (number/volume) 3.2 10*3 1.8-7.8 Blood lymphocytes automated count (number/volume) 3.0 10*3 1.0-4.0 Blood monocytes automated count (number/volume) 0.5 10*3 0.0-1.0 Automated eosinophil count 0.2 10*3/uL 0.0-0.3 Automated blood basophil count (count/volume) 0.0 10*3/uL 0.0-0.1 PT panel in platelet poor plasma by coagulation assay - 05/16/16 16:48 Prothrombin time (PT) in platelet poor plasma by coagulation assay 13.1 s 12.2-14.7 INR in platelet poor plasma or blood by coagulation assay 1.0 0.8-1.4 Activated partial thromboplastin time (aPTT) in platelet poor plasma bycoagulation assay - 05/16/16 16:48 Activated partial thromboplastin time (aPTT) in platelet poor plasma bycoagulation assay 25 s 24-35 Comprehensive metabolic panel - 05/16/16 16:48 Serum or plasma sodium measurement (moles/volume) 142 mmol/L 135-145 Serum or plasma potassium measurement (moles/volume) 4.3 mmol/L 3.6-5.0 Serum or plasma chloride measurement (moles/volume) 112 mmol/L 98-107 Carbon dioxide 21 mmol/L 21-32 Serum or plasma anion gap determination (moles/volume) 9 mmol/L 5-14 Serum or plasma urea nitrogen measurement (mass/volume) 25 mg/dL 7-18 Serum or plasma creatinine measurement (mass/volume) 1.14 mg/dL 0.60-1.30 Serum or plasma urea nitrogen/creatinine mass ratio 22 NRG Serum or plasma creatinine measurement with calculation of estimated glomerular filtration rate 46 NRG Serum or plasma glucose measurement (mass/volume) 109 mg/dL 70-105 Serum or plasma calcium measurement (mass/volume) 9.5 mg/dL 8.5-10.1 Serum or plasma total bilirubin measurement (mass/volume) 0.3 mg/dL 0.1-1.0 Serum or plasma alkaline phosphatase measurement (enzymatic activity/volume) 69 U/L 40-136 Serum or plasma aspartate aminotransferase measurement (enzymatic activity/ volume) 20 U/L 5-34 Serum or plasma alanine aminotransferase measurement (enzymatic activity/volume ) 12 U/L 0-55 Serum or plasma protein measurement (mass/volume) 6.3 g/dL 6.4-8.2 Serum or plasma albumin measurement (mass/volume) 3.9 g/dL 3.2-4.5 Magnesium - 05/16/16 16:48 Magnesium 2.2 mg/dL 1.8-2.4 Serum or plasma creatine kinase measurement (enzymatic activity/volume) - 05/16 16:48 Serum or plasma creatine kinase measurement (enzymatic activity/volume) 48 U/L 29-168 Serum or plasma creatine kinase MB measurement (enzymatic activity/volume) - 16:48 Serum or plasma creatine kinase MB measurement (enzymatic activity/volume) 1.3 ng/mL <6.6 Serum or plasma troponin i.cardiac measurement (mass/volume) - 05/16/16 16:48 Serum or plasma troponin i.cardiac measurement (mass/volume) < ng/ mL <0.30 Serum or plasma amylase measurement (enzymatic activity/volume) - 05/16/16 16: 48 Serum or plasma amylase measurement (enzymatic activity/volume) 36 U /L 25-125 Encounters ACCT No. Visit Date/Time Discharge Status Pt. Type Provider Facility Loc./Unit Complaint [id number] 09/05/2017 11:15:00 09/05/2017 13:09:00 DIS Outpatient ELLIOTTLESVIA MILLAN APRN [facility] REHAB ARTHRITIS AND STENOSIS [id number] 07/09/2017 09:13:00 07/09/2017 23:59:59 [facility] Outpatient SHAHZAD GUAMAN DO [facility] RAD R CERVICAL PAIN WITH R ARM RADICULOPATHY [id number] 10/14/2016 14:45:00 10/14/2016 15:31:00 DIS Outpatient SHAHZAD GUAMAN DO [facility] REHAB LOW BACK PAIN; LUMBAR DDD [id number] 05/28/2016 09:08:00 05/28/2016 23:59:59 [facility] Outpatient HSAHZAD GUAMAN DO [facility] RAD SIMON MASTALGIA [id number] 05/16/2016 15:19:00 05/16/2016 19:29:00 DIS Emergency ISIDRA DUPREE DO [facility] ER FALL/COLLAR BONE INJ/R SIDE PAIN [id number] 12/19/2014 13:58:00 12/19/2014 17:00:00 DIS Outpatient PATRICK JIMENEZ DO [facility] FAMILY HX COLON CA, QUESIONABLE BARRETTS [id number] 06/19/2014 14:57:00 06/19/2014 15:33:00 DIS Outpatient SHAHZAD GUAMAN DO [facility] REHAB THORACIC BACK PAIN / SPASM [id number] 11/23/2012 16:15:00 11/23/2012 18:56:00 DIS Emergency GUILLERMO HERNANDEZ MD [facility] ER HEADACHE,EAR PAIN [id number] 11/18/2017 16:21:00 ACT Emergency GUILLERMO HERNANDEZ MD [facility] ER NOT FEELING WELL/ABD PAIN [id number] 12/16/2014 05:44:00 Document Registration [id number] 05/15/2014 19:30:00 Document Registration [id number] 06/19/2012 08:27:00 Document Registration [id number] 09/23/2011 12:55:00 Document Registration 07/201511/17/2017 23:27:00 ACT Outpatient Shahzad Guaman [id number] 06/20/2014 05:54:17 ACT Document Registration
[2017-11-18] MEDS ORDERED: ONDANSETRON 4 MG/2 ML (SDV) Z0FRAN IVP ONE (17:30)
[2017-11-18] MEDS ORDERED: LIDOCAINE 2% VISCOUS 15 ML UDC PO ONE (17:30)
[2017-11-18] MEDS ORDERED: ANTACID SUSP 30 ML UDC (MYLANTA) PO ONE (17:30)
[2017-11-18 18:25] LABS: BASOPHILS % (AUTO) 1 % (0-10); EOSINOPHILS # (AUTO) 0.3 10^3/uL (0.0-0.3); EOSINOPHILS % (AUTO) 4 % (0-10); HEMATOCRIT 38 % (35-52); HEMOGLOBIN 12.9 G/DL (11.5-16.0); LYMPHOCYTES # (AUTO) 3.5 X 10^3 (1.0-4.0); LYMPHOCYTES % (AUTO) 48 % (12-44); MEAN CORPUSCULAR HEMOGLOBIN 31 PG (25-34); MEAN CORPUSCULAR HGB CONC 34 G/DL (32-36); MEAN CORPUSCULAR VOLUME 91 FL (80-99); MEAN PLATELET VOLUME 10.3 FL (7.4-10.4); MONOCYTES # (AUTO) 0.7 X 10^3 (0.0-1.0); MONOCYTES % (AUTO) 9 % (0-12); NEUTROPHILS # (AUTO) 2.8 X 10^3 (1.8-7.8); NEUTROPHILS % (AUTO) 38 % (42-75); PLATELET COUNT 164 10^3/uL (130-400); RED BLOOD COUNT 4.16 10^6/uL (4.35-5.85); WHITE BLOOD COUNT 7.2 10^3/uL (4.3-11.0)
[2017-11-18] MEDS ORDERED: meTOprolol 5 MG/5 ML (LOPRESSOR) VIAL IV ONE (18:45)
[2017-11-18 18:46] LABS: ALBUMIN 4.1 GM/DL (3.2-4.5); BILIRUBIN,TOTAL 0.4 MG/DL (0.1-1.0); CALCIUM 9.8 MG/DL (8.5-10.1); CREATININE SERUM 0.9 MG/DL (0.60-1.30); POTASSIUM 3.8 MMOL/L (3.6-5.0); TOTAL PROTEIN 6.9 GM/DL (6.4-8.2)
--- NOTE | 2017-11-18 18:49 | ED Abdominal Pain ---
General Chief Complaint: Abdominal/GI Problems Stated Complaint: NOT FEELING WELL/ABD PAIN Nursing Triage Note: Pt arrives to the ED c/o ABD Pain and "not feeling well". Pt is +Nausea -Vomitting. Last BM: 11/18. Sepsis Screen: No Definite Risk Source of Information: Patient, Family Exam Limitations: No Limitations (GUILLERMO HERNANDEZ MD) History of Present Illness Date Seen by Provider: Nov 18, 2017 Time Seen by Provider: 16:45 Initial Comments This 77-year-old woman presents to the emergency room with complaints of worsening abdominal pain and nausea for the past one month. She describes a burning sensation in the epigastric region. She has been trying Tums, Gas-X, active the small, and proton pump inhibitors without significant relief. She had previously been on omeprazole and was recently changed to Protonix. She describes pain particularly after eating. Sometimes this happens upon the end of her swallow and sometimes it is delayed. She has frequent belching. She is status post cholecystectomy. She has had an EGD and colonoscopy in the [address] Jimenez which demonstrated a gastric polyp, diverticulosis, and right colon inflammation. She also has a history of hiatal hernia status post repair by Dr. Mariscal. 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 Her primary care provider is Dr. Jimenez. She has had some nausea without vomiting. She states it is very difficult for her to vomit since the hiatal hernia repair. Patient also describes generally feeling shaky and weak, especially when getting up. (GUILLERMO HERNANDEZ MD) Allergies and Home Medications Allergies Coded Allergies: quinine (Verified Allergy, Unknown, 11/16/05) Home Medications Acetaminophen 500 Mg Tablet, 500 MG PO HS, (Reported) Aspirin 325 Mg Tablet, 81 MG PO DAILY, (Reported) Ca Cmb No.1/Vit D3/B-6/Fa/B12 1 Each Tablet, 1 EACH PO DAILY, (Reported) Melatonin/Pyridoxine 1 Each Tablet, 1 EACH PO HS, (Reported) Metoprolol Succinate/Hctz 1 Each Tab.er.24h, 1 EACH PO DAILY, (Reported) Multivitamins 1 Tab Tablet, 1 TAB PO DAILY, (Reported) Nitrofurantoin Macrocrystal 100 Mg Capsule, 100 MG PO BID Prescribed by: TRACI LOWERY on 11/18/171958 [place] 3 Polyunsat Fatty Acids 1,000 Mg Cap, 1 TAB PO DAILY, (Reported) Omeprazole 20 Mg Capsule.dr, 40 MG PO DAILY, (Reported) Simvastatin 40 Mg Tablet, 1 TAB PO HS, (Reported) Sucralfate 1 Gm Tablet, 1 GM PO QIDACHS Prescribed by: TRACI LOWERY on 11/18/171934 Tramadol HCl 50 Mg Tablet, 50 MG PO Q4H Prescribed by: ISIDRA DUPREE on 05/16/16 1824 Patient Home Medication List Home Medication List Reviewed: Yes (GUILLERMO HERNANDEZ MD) Home Medication List Reviewed: Yes (TRACI LOWERY) Review of Systems Review of Systems Constitutional: see HPI EENTM: No Symptoms Reported Respiratory: No Symptoms Reported Cardiovascular: See HPI Gastrointestinal: See HPI Genitourinary: No Symptoms Reported Musculoskeletal: no symptoms reported Skin: no symptoms reported Psychiatric/Neurological: See HPI Endocrine: No Symptoms Reported Hematologic/Lymphatic: No Symptoms Reported (GUILLERMO HERNANDEZ MD) Past Mnljciy-Zrhmzm-Yafjuy Hx Past Med/Social Hx: Reviewed and Corrections made (GUILLERMO HERNANDEZ MD) Patient Social History Alcohol Use: Denies Use Recreational Drug Use: No Smoking Status: Never a Smoker 2nd Hand Smoke Exposure: No Recent Foreign Travel: No Contact w/Someone Who Travel: No Recent Infectious Disease Expo: No Recent Hopitalizations: No Physical Abuse: No Sexual Abuse: No Mistreated: No Fear: No (GUILLERMO HERNANDEZ MD) Immunizations Up To Date Date of Pneumonia Vaccine: Feb 09, 2010 Date of Influenza Vaccine: Dec 14, 2013 (GUILLERMO HERNANDEZ MD) Past Medical History Surgeries: Yes Abdominal (hiatal hernia repair), Appendectomy, Cardiac, CABG, Gallbladder, Hysterectomy, Joint Replacement, Orthopedic Respiratory: No Cardiac: Yes Coronary Artery Disease, Heart Attack, High Cholesterol, Hypertension, Peripheral Vascular Neurological: No Reproductive Disorders: No 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, 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 Sexually Transmitted Disease: No UTI-Chronic Gastrointestinal: Yes (SPASTIC COLON/HIATAL HERNIA/GI BLEED-ULCERS, gastric polyp) Gastroesophageal Reflux, Gastrointestinal Bleed, Diverticulosis, Hiatal Hernia, Ulcer Musculoskeletal: Yes (RIGHT KNEE REPLACEMENT) Arthritis Endocrine: Yes ("DIET CONTROLLED", OBESITY) Diabetes, Non-Insulin dep HEENT: No Cancer: No Psychosocial: Yes Anxiety Integumentary: No Blood Disorders: No (GUILLERMO HERNANDEZ MD) Physical Exam Vital Signs Vital Signs - First Documented 11/18/17 16:35 Temp 98.2 Pulse 68 Resp 14 B/P (MAP) 193/83 (119) Pulse Ox 96 (SEBASTIÁN,TRACI J) Vital Signs Capillary Refill : Less Than 3 Seconds (GUILLERMO HERNANDEZ MD) Height/Weight/BMI Height: 5'2.00" Weight: 210lbs. 6.0oz. 95.979988zl; BMI Method:Stated General Appearance: WD/WN, no apparent distress HEENT: PERRL/EOMI, normal ENT inspection Neck: normal inspection Respiratory: chest non-tender, lungs clear, normal breath sounds, no respiratory distress, no accessory muscle use Cardiovascular: regular rate, rhythm, no edema, no murmur Gastrointestinal: normal bowel sounds, soft, tenderness (epigastric) Extremities: normal inspection Neurologic/Psychiatric: manager generation II-XII nml as tested, no motor/sensory deficits, alert, normal mood/affect, oriented x 3 Skin: normal color, warm/dry (GUILLERMO HERNANDEZ MD) Progress/Results/Core Measures Results/Orders Lab Results Laboratory Tests Test 11/18/17 16:28 11/18/17 18:04 Range/Units Urine Color YELLOW Urine Clarity CLEAR Urine pH 6.5 5-9 Urine Specific [place] 1.010 L 1.016-1.022 Urine Protein NEGATIVE NEGATIVE Urine Glucose (UA) NEGATIVE NEGATIVE Urine Ketones NEGATIVE NEGATIVE Urine Nitrite POSITIVE H NEGATIVE Urine Bilirubin NEGATIVE NEGATIVE Urine Urobilinogen NORMAL NORMAL MG/DL Urine Leukocyte Esterase 2+ H NEGATIVE Urine RBC (Auto) NEGATIVE NEGATIVE Urine RBC NONE /HPF Urine WBC 25-50 H /HPF Urine Crystals NONE /LPF Urine Bacteria LARGE H /HPF Urine Casts NONE /LPF Urine Mucus NEGATIVE /LPF Urine Culture Indicated YES White Blood Count 7.2 4.3-11.0 10^3/uL Red Blood Count 4.16 L 4.35-5.85 10^6/uL Hemoglobin 12.9 11.5-16.0 G/DL Hematocrit 38 35-52 % Mean Corpuscular Volume 91 80-99 FL Mean Corpuscular Hemoglobin 31 25-34 PG Mean Corpuscular Hemoglobin Concent 34 32-36 G/DL Red Cell Distribution Width 13.0 10.0-14.5 % Platelet Count 164 130-400 10^3/uL Mean Platelet Volume 10.3 7.4-10.4 FL Neutrophils (%) (Auto) 38 L 42-75 % Lymphocytes (%) (Auto) 48 H 12-44 % Monocytes (%) (Auto) 9 0-12 % Eosinophils (%) (Auto) 4 0-10 % Basophils (%) (Auto) 1 0-10 % Neutrophils # (Auto) 2.8 1.8-7.8 X 10^3 Lymphocytes # (Auto) 3.5 1.0-4.0 X 10^3 Monocytes # (Auto) 0.7 0.0-1.0 X 10^3 Eosinophils # (Auto) 0.3 0.0-0.3 10^3/uL Basophils # (Auto) 0.0 0.0-0.1 10^3/uL Sodium Level 139 135-145 MMOL/L Potassium Level 3.8 3.6-5.0 MMOL/L Chloride Level 107 98-107 MMOL/L Carbon Dioxide Level 20 L 21-32 MMOL/L Anion Gap 12 5-14 MMOL/L Blood Urea Nitrogen 26 H 7-18 MG/DL Creatinine 0.90 0.60-1.30 MG/DL Estimat Glomerular Filtration Rate 60 BUN/Creatinine Ratio 29 Glucose Level 73 70-105 MG/DL Calcium Level 9.8 8.5-10.1 MG/DL Corrected Calcium 9.7 8.5-10.1 MG/DL Total Bilirubin 0.4 0.1-1.0 MG/DL Aspartate Amino Transf (AST/SGOT) 17 5-34 U/L Alanine Aminotransferase (ALT/SGPT) 10 0-55 U/L Alkaline Phosphatase 70 40-136 U/L Total Protein 6.9 6.4-8.2 GM/DL Albumin 4.1 3.2-4.5 GM/DL Lipase 51 8-78 U/L (TRACI LOWERY) My Orders Orders - TRACI LOWERY Metoprolol Tartrate Injection (Lopressor (11/18/17 18:45) (TRACI LOWERY) Medications Given in ED Current Medications Medications Dose Ordered Sig/Rocio Route Start Time Stop Time Status Last Admin Dose Admin Al Hydrox/Mg Hydrox/Simethicone 30 ml ONCE ONCE PO 11/18/17 17:30 11/18/17 17:31 DC 11/18/17 18:15 30 ML Lidocaine HCl 15 ml ONCE ONCE PO 11/18/17 17:30 11/18/17 17:31 DC 11/18/17 18:15 15 ML Ondansetron HCl 4 mg ONCE ONCE IVP 11/18/17 17:30 11/18/17 17:31 DC 11/18/17 18:15 4 MG (TRACI LOWERY) Vital Signs/I&O 11/18/17 16:35 Temp 98.2 Pulse 68 Resp 14 B/P (MAP) 193/83 (119) Pulse Ox 96 (TRACI LOWERY) Blood Pressure Mean: 119 Progress Progress Note : Time: 19:30 Progress Note Assumed care of the patient at shift change and I have alerted visit with and taken history and examination of the patient which is consistent with the history and examination as documented by Dr. Bertrand. Patient experienced relief from her symptoms within minutes of the GI cocktail. She was also given Zofran and is no longer having any nausea. She does have a history of stomach polyp and EGD [place] [address] Jimenez and would probably be mcdaniel that she have another scope. We'll set her up on some antacids and Carafate. She recently switched from her omeprazole to pantoprazole and she does not think it's working as well. (TRACI LOWERY) Departure Impression Primary Impression: Acute gastritis without mention of hemorrhage Additional Impression: Urinary tract infection Qualified Codes: N30.00 - Acute cystitis without hematuria Disposition: HOME, SELF-CARE Condition: Improved Departure-Patient Inst. Decision time for Depature: 19:59 (TRACI LOWERY) Referrals: SHAHZAD GUAMAN DO (PCP) Primary Care Physician PATRICK JIMENEZ DO Patient Instructions: Gastritis (DC) Add. Discharge Instructions: Your workup seems to be consistent with an irritated lining of your stomach. This could be from peptic ulcer or other concern will be best discovered by EGD or a camera being placed in your stomach by Dr. Jimenez. Keep your follow-up appointment with Dr. Guaman on [place]. Continue taking the pantoprazole in addition to the next 2 weeks take Carafate 30 minutes prior to all meals and before bedtime. If you're still having breakthrough burning you can take a tablet of ranitidine 1-2 times daily. Take the Macrobid/nitrofurantoin one capsule twice a day for the next 7 days for your urinary tract infection. All discharge instructions reviewed with patient and/or family. Voiced understanding. Scripts Nitrofurantoin Macrocrystal (Nitrofurantoin) 100 Mg Capsule 100 MG PO BID for 7 Days, #14 CAP Prov: TRACI LOWERY 11/18/17 Sucralfate (Carafate) 1 Gm Tablet 1 GM PO QIDACHS for 14 Days, #56 TAB 0 Refills Prov: TRACI LOWERY 11/18/17 Copy Copies To 1: PATRICK JIMENEZ DO; SHAHZAD GUAMAN DO Copies To 2: SHAHZAD GUAMAN JOSHUA T MD Nov 18, 2017 18:49 TRACI LOWERY Nov 18, 2017 19:37
[2017-11-18 19:16] LABS: BILIRUBIN,URINE NEGATIVE (NEGATIVE); CLARITY,URINE CLEAR; COLOR,URINE YELLOW; GLUCOSE, URINE (UA) NEGATIVE (NEGATIVE); KETONES,URINE NEGATIVE (NEGATIVE); LEUKOCYTE ESTERASE ,URINE 2+ (NEGATIVE); NITRITE,URINE POSITIVE (NEGATIVE); PH,URINE 6.5 (5-9); PROTEIN,URINE NEGATIVE (NEGATIVE); UROBILINOGEN,URINE NORMAL (NORMAL)
[2017-11-18 19:32] LABS: BACTERIA,URINE LARGE /HPF; WBC,URINE 25-50 /HPF
[2017-11-18] MEDS ORDERED: SUCR1TAB36 PO (19:35)
[2017-11-18] MEDS ORDERED: NITR100C PO (19:59)
[2017-11-18 20:14] VITALS: BP 158/67
== END 2017-11-18 20:15 | disposition home or self-care (01) ==
LOC: EDUNIT# 16:20 → ER 16:21
DX: K29.00 Acute gastritis without bleeding (principal); N39.0 Urinary tract infection, site not specified; I25.10 Atherosclerotic heart disease of native coronary artery without angina pectoris; I25.2 Old myocardial infarction; E78.00 Pure hypercholesterolemia, unspecified; I10 Essential (primary) hypertension; E11.51 Type 2 diabetes mellitus with diabetic peripheral angiopathy without gangrene; I73.9 Peripheral vascular disease, unspecified; F41.9 Anxiety disorder, unspecified; K21.9 Gastro-esophageal reflux disease without esophagitis; E66.9 Obesity, unspecified; Z87.19 Personal history of other diseases of the digestive system; Z87.440 Personal history of urinary (tract) infections; Z88.8 Allergy status to other drugs, medicaments and biological substances; Z79.82 Long term (current) use of aspirin; Z90.49 Acquired absence of other specified parts of digestive tract; Z86.010 Personal history of colon polyps; Z98.890 Other specified postprocedural states; Z90.89 Acquired absence of other organs; Z95.1 Presence of aortocoronary bypass graft; Z90.710 Acquired absence of both cervix and uterus
CPT/HCPCS: 36415; 80053; 81000; 83690; 85025; 87077; 87088; 87186; 96374

== ENCOUNTER → 2018-02-14 | Outpatient (CLI) | payer MEDICARE, OTHER ==
[~2018-02-14] MED LIST changes: +NITR100C PO; +SUCR1TAB36 PO
--- NOTE | 2018-02-14 14:02 | Diagnostic Imaging Report ---
PROCEDURE: CT abdomen and pelvis without contrast. TECHNIQUE: Multiple contiguous axial images were obtained through the abdomen and pelvis without the use of intravenous contrast. INDICATION: Upper abdominal pain. FINDINGS: The previous CT chest, abdomen and pelvis exam of 05/16/2016 noted diverticulosis of the sigmoid colon but failed to show any sign of acute diverticulitis. On this exam, there are a few diverticula involving the sigmoid colon but there is still no evidence for acute diverticulitis. The uterus is surgically absent. The urinary bladder is only partially distended and consequently not well evaluated. There is no obvious bladder abnormality evident. There is no pelvic mass or free fluid collection noted. The appendix was not well-visualized but there are no indirect signs of acute appendicitis. The liver, spleen, pancreas, adrenals, kidneys, aorta and inferior vena cava show no sign of an acute abnormality. There are a few small nonobstructive calculi within both kidneys. The gallbladder is surgically absent. The stomach is not well-distended and consequently difficult to assess. The hiatal hernia seen on the previous exam is again evident. The hernia now measures 3.5 x 4.4 cm. The lung bases are clear. The heart is enlarged and there are coronary calcifications evident. Sternotomy wires and surgical clips are noted as well. The bone windows show no sign of a fracture or of a destructive lesion. IMPRESSION: 1. There is diverticulosis of the sigmoid colon but there is no evidence for acute diverticulitis. 2. There is no acute abnormality of the abdomen or pelvis noted otherwise. 3. The uterus and gallbladder are surgically absent. 4. There is a hiatal hernia. 5. There is cardiomegaly and coronary artery disease. Dictated by: Dictated on workstation # [id number]
== END ==
LOC: RAD 13:28
PROVIDERS: ATTEND Family Medicine
DX: K57.30 Diverticulosis of large intestine without perforation or abscess without bleeding (principal); K44.9 Diaphragmatic hernia without obstruction or gangrene; I25.10 Atherosclerotic heart disease of native coronary artery without angina pectoris; I51.7 Cardiomegaly; Z95.828 Presence of other vascular implants and grafts; Z90.49 Acquired absence of other specified parts of digestive tract; Z90.710 Acquired absence of both cervix and uterus
CPT/HCPCS: 74176

== ENCOUNTER 2018-03-09 06:22 | Outpatient (CLI) | payer MEDICARE, OTHER ==
[~2018-03-09] VITALS: Ht 157.5 cm; Wt 95.4 kg
[2018-03-09] MEDS ORDERED: ASPI-999 PO (14:05)
[2018-03-09] MEDS ORDERED: METO50TA15 PO (14:05)
[2018-03-09] MEDS ORDERED: MULT1CAP27 PO (14:05)
[2018-03-09] MEDS ORDERED: OMG1KC PO (14:05)
[2018-03-09] MEDS ORDERED: SUCR1TAB36 PO (14:05)
[2018-03-09] MEDS ORDERED: PANT40TA2 PO (14:05)
[2018-03-09] MEDS ORDERED: ALPR0.254 PO (14:05)
[2018-03-09] MEDS ORDERED: SIMV40TA4 PO (14:05)
[2018-03-09] MEDS ORDERED: ISOS30TA3 PO (14:05)
== END 2018-03-09 14:08 | disposition home or self-care (01) ==
LOC: PREOP 06:22
PROVIDERS: ATTEND Surgery
DX: Z01.818 Encounter for other preprocedural examination (principal)

== ENCOUNTER → 2018-03-14 | Day surgery (SDC) | payer MEDICARE, OTHER ==
[~2018-03-14] VITALS: Ht 157.5 cm; Wt 95.4 kg
[~2018-03-14] MED LIST changes: +ALPR0.254 PO; +ASPI-999 PO; +FAMO10TA PO; +HURRICAINE EXT TUBE (BENZOCAINE) XX ONE; +ISOS30TA3 PO; +LACTATED RINGERS 1,000 ML IV ONE; +LACTATED RINGERS 1,000 ML IV PRN; +METO50TA15 PO; +MULT1CAP27 PO; +PANT40TA2 PO; +PROPOFOL INJECTION 0 ML IV ONE; +SIMV40TA4 PO; +proPOfol 200 MG/20 ML (DIPRIVAN) VIAL IV ONE
--- OUTSIDE RECORDS SUMMARY | 2018-03-14 06:59 | XMS REPORT | Continuity of Care Document ---
Author Author [facility] Organization [facility] Address Unknown Phone Unavailable Allergies Active Description Code Type Severity Reaction Onset Reported/Identified Relationship to Patient Clinical Status Yes quinine [id number] Drug Allergy Unknown N/A 12/19/2014 Yes quinine [id number] Drug Allergy Mild RASH 03/09/2018 Medications There is no data. Problems Date Dx Coded Attending Type Code Diagnosis Diagnosed By 02/04/1308 LESVIA GALLAGHER APRN Ot M19.90 UNSPECIFIED OSTEOARTHRITIS, UNSPECIFIED 02/04/1308 LESVIA GALLAGHER APRN Ot M48.00 SPINAL STENOSIS, SITE UNSPECIFIED 02/03/1530 VIKKI GUAMAN DO Ot M51.36 OTHER INTERVERTEBRAL DISC [...] NEC 05/16/2014 Ot V45.81 AORTOCORONARY BYPASS 06/10/2014 VIKKI GUAMAN DO Ot 724.1 06/10/2014 VIKKI GUAMAN DO Ot V57.1 06/19/2014 VIKKI GUAMAN DO Ot 724.1 PAIN IN THORACIC SPINE 06/19/2014 VIKKI GUAMAN DO Ot V57.1 PHYSICAL THERAPY NEC 12/19/2014 PATRICK JIMENEZ DO Ot K31.7 POLYP OF STOMACH AND DUODENUM 12/19/2014 JIMENEZ PATRICK CHIN Ot K52.9 NONINFECTIVE GASTROENTERITIS AND COLITIS 12/19/2014 [place] PATRICK CHIN Ot K57.90 DVRTCLOS OF INTEST, [...] DO Ot I25.10 ATHSCL HEART DISEASE OF [place] CORONARY 05/16/2016 ISIDRA DUPREE DO Ot I25.2 OLD MYOCARDIAL INFARCTION 05/16/2016 ISIDRA DUPREE DO Ot K44.9 DIAPHRAGMATIC HERNIA WITHOUT OBSTRUCTION 05/16/2016 ISIDRA DUPREE DO Ot K57.30 DVRTCLOS OF LG INT W/O PERFORATION OR AB 05/16/2016 ISIDRA DUPREE DO Ot M47.812 SPONDYLOSIS W/O MYELOPATHY OR RADICULOPA 05/16/2016 ISIDRA DUPREE DO Ot S00.83XA CONTUSION OF OTHER PART OF HEAD, INITIAL 05/16/2016 ISIDRA DUPREE DO Ot S20.311A ABRASION OF RIGHT FRONT WALL OF THORAX, 05/16/2016 ISIDRA DUPREE DO Ot S20.312A ABRASION OF LEFT FRONT WALL OF THORAX, I 05/16/2016 ISIDRA DUPREE DO Ot S29.9XXA UNSPECIFIED INJURY OF THORAX, INITIAL EN 05/16/2016 ISIDRA DUPREE DO Ot W18.09XA STRIKING AGAINST OTH OBJECT W SUBSEQUENT 05/16/2016 [facility] ISIDRA K Ot Y92.013 BEDROOM OF SINGLE-FAMILY (PRIVATE) HOUSE 05/16/2016 [facility] ISIDRA CHIN Ot Y99.8 OTHER EXTERNAL CAUSE STATUS 05/16/2016 [facility] ISIDRA CHIN Ot Z79.82 PENITENTIARY (CURRENT) USE OF ASPIRIN 05/16/2016 JOON DOISIDRA Ot Z79.899 OTHER PENITENTIARY (CURRENT) DRUG THERAPY 05/16/2016 [facility] ISIDRA CHIN Ot Z95.1 PRESENCE OF AORTOCORONARY BYPASS GRAFT 05/18/2016 JOON ISIDRA CHIN Ot E66.9 OBESITY, UNSPECIFIED 05/18/2016 [facility] ISIDRA CHIN Ot I10 ESSENTIAL (PRIMARY) HYPERTENSION 05/18/[facility].10 ATHSCL HEART DISEASE OF [place] CORONARY 05/18/2016 JOON DOISIDRA Ot I25.2 OLD MYOCARDIAL INFARCTION 05/18/2016 [facility] ISIDRA CHIN Ot K44.9 DIAPHRAGMATIC HERNIA WITHOUT OBSTRUCTION 05/18/[facility] K57.30 DVRTCLOS OF LG INT W/O PERFORATION OR AB 05/18/2016 [facility] ISIDRA CHIN Ot M47.812 SPONDYLOSIS W/O MYELOPATHY OR RADICULOPA 05/18/2016 [facility] ISIDRA CHIN Ot S00.83XA CONTUSION OF OTHER PART OF HEAD, INITIAL 05/18/2016 ISIDRA DUPREE DO Ot S20.311A ABRASION OF RIGHT FRONT WALL OF THORAX, 05/18/2016 [facility] ISIDRA CHIN Ot S20.312A ABRASION OF LEFT FRONT WALL OF THORAX, I 05/18/2016 [facility] ISIDRA CHIN Ot S29.9XXA UNSPECIFIED INJURY OF THORAX, INITIAL EN 05/18/2016 ISIDRA DUPREE DO Ot W18.09XA STRIKING AGAINST OTH OBJECT W SUBSEQUENT 05/18/2016 [facility] ISIDRA CHIN Ot Y92.013 BEDROOM OF SINGLE-FAMILY (PRIVATE) HOUSE 05/18/2016 [facility] ISIDRA CHIN Ot Y99.8 OTHER EXTERNAL CAUSE STATUS 05/18/2016 [facility] ISIDRA CHIN Ot Z79.82 PENITENTIARY (CURRENT) USE OF ASPIRIN 05/18/2016 ISIDRA DUPREE DO Ot Z79.899 OTHER PENITENTIARY (CURRENT) DRUG THERAPY 05/18/2016 ISIDRA DUPREE DO Ot Z95.1 PRESENCE OF AORTOCORONARY BYPASS GRAFT 05/28/2016 Ot 611.71 MASTODYNIA 05/28/2016 Ot Z01.818 ENCOUNTER FOR OTHER PREPROCEDURAL EXAMIN 05/28/2016 Ot Z12.11 ENCOUNTER FOR SCREENING FOR MALIGNANT NE 05/28/2016 Ot Z80.0 FAMILY HISTORY OF MALIGNANT NEOPLASM OF 05/28/2016 GUNNERNDER DO, VIKKI S Ot N64.4 MASTODYNIA 05/28/2016 ORENDER DO, VIKKI S Ot N64.4 MASTODYNIA 05/28/2016 Ot 611.71 MASTODYNIA 05/28/2016 Ot Z01.818 ENCOUNTER FOR OTHER PREPROCEDURAL EXAMIN 05/28/2016 Ot Z12.11 ENCOUNTER FOR SCREENING FOR MALIGNANT NE 05/28/2016 Ot Z80.0 FAMILY HISTORY OF MALIGNANT NEOPLASM OF 05/28/2016 GUNNERNDER DO, VIKKI S Ot N64.4 MASTODYNIA [facility]/28[facility] Ot N64.4 MASTODYNIA 05/28/2016 GUNNERND DO, VIKKI S Ot N64.4 MASTODYNIA 05/29/2016 GUNNERND DO, VIKKI S Ot N64.4 MASTODYNIA 05/31/2016 GUNNERNDQUINN DO, VIKKI S Ot N64.4 MASTODYNIA 06/18/2016 GUNNERNDQUINN DO, VIKKI S Ot N64.4 MASTODYNIA 09/23/2016 DIEGO GUAMAN DOLINE S Ot M51.36 OTHER INTERVERTEBRAL DISC DEGENERATION, 09/24/2016 CAIO GUAMAN DOQUELINE S Ot M51.36 OTHER INTERVERTEBRAL DISC DEGENERATION, 09/30/2016 CAIO GUAMAN DOQUELINE S Ot M51.36 OTHER INTERVERTEBRAL DISC DEGENERATION, 10/14/2016 DIEGO GUAMAN DOLINE S Ot M51.36 OTHER INTERVERTEBRAL DISC DEGENERATION, 07/16/2017 VIKKI GUAMAN DO S Ot M48.02 SPINAL STENOSIS, CERVICAL REGION 07/16/2017 VIKKI GUAMAN DO S Ot 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 07/16/2017 VIKKI GUAMAN DO Ot M99.71 CONN TISS AND DISC STENOSIS OF INTVRT FO 07/29/2017 VIKKI GUAMAN DO Ot M48.02 SPINAL STENOSIS, CERVICAL REGION 07/29/2017 VIKKI GUAMAN DO S Ot 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 07/29/2017 DIEGO GUAMAN DOLINE S Ot M99.71 CONN TISS AND DISC STENOSIS OF INTVRT FO 08/24/2017 ELLIOTT, LESVIA R OFFICE TECHNOLOGY INSTRUCTOR Ot M19.90 UNSPECIFIED OSTEOARTHRITIS, UNSPECIFIED 08/24/2017 ELLIOTT, LESVIA R OFFICE TECHNOLOGY INSTRUCTOR Ot M48.00 SPINAL STENOSIS, SITE UNSPECIFIED 09/05/2017 ELLIOTT, LESVIA R OFFICE TECHNOLOGY INSTRUCTOR Ot M19.90 UNSPECIFIED OSTEOARTHRITIS, UNSPECIFIED 09/05/2017 ELLIOTT, LESVIA R OFFICE TECHNOLOGY INSTRUCTOR Ot M48.00 SPINAL STENOSIS, SITE UNSPECIFIED 11/18/2017 Ot 611.71 MASTODYNIA 11/18/2017 Ot Z01.818 ENCOUNTER FOR OTHER PREPROCEDURAL EXAMIN 11/18/2017 Ot Z12.11 ENCOUNTER FOR SCREENING FOR MALIGNANT NE 11/18/2017 Ot Z80.0 FAMILY HISTORY OF MALIGNANT NEOPLASM OF 11/18/2017 VIKKI GUAMAN DO Ot N64.4 MASTODYNIA 11/18/2017 VIKKI GUAMAN DO Ot M48.02 SPINAL STENOSIS, CERVICAL REGION 11/18/2017 VIKKI GUAMAN DO Ot 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 11/18/2017 VIKKI GUAMAN DO Ot M99.71 CONN TISS AND DISC STENOSIS OF INTVRT FO 11/18/2017 SEBASTIÁN LOVETT, TRACI Ch Ot E11.51 TYPE 2 DIABETES W DIABETIC PERIPHERAL AN 11/18/2017 SEBASTIÁN LOVETT, TRACI Ch Ot E66.9 OBESITY, UNSPECIFIED 11/18/2017 TRACI LOWERY MD Ot E78.00 PURE HYPERCHOLESTEROLEMIA, UNSPECIFIED 11/18/2017 TRACI LOWERY MD Ot F41.9 ANXIETY DISORDER, UNSPECIFIED 11/18/2017 TRACI LOWERY MD Ot I10 ESSENTIAL (PRIMARY) HYPERTENSION 11/18/2017 TRACI LOWERY MD Ot I25.10 ATHSCL HEART DISEASE OF [place] CORONARY 11/18/2017 TRACI LOWERY MD Ot I25.2 OLD MYOCARDIAL INFARCTION 11/18/2017 TRACI LOWERY MD Ot I73.9 PERIPHERAL VASCULAR DISEASE, UNSPECIFIED 11/18/2017 TRACI LOWERY MD Ot K21.9 GASTRO-ESOPHAGEAL REFLUX DISEASE WITHOUT 11/18/2017 TRACI LOWERY MD Ot K29.00 ACUTE GASTRITIS WITHOUT BLEEDING 11/18/2017 TRACI LOWERY MD Ot N39.0 URINARY TRACT INFECTION, SITE NOT SPECIF 11/18/2017 TRACI LOWERY MD Ot R11.0 NAUSEA 11/18/2017 TRACI LOWERY MD Ot Z79.82 SUPERVISOR PLEATING (CURRENT) USE OF ASPIRIN 11/18/2017 TRACI LOWERY MD Ot Z86.010 PERSONAL HISTORY OF COLONIC POLYPS 11/18/2017 TRACI LOWERY MD Ot Z87.19 PERSONAL HISTORY OF OTHER DISEASES OF [place] 11/18/2017 TRACI LOWERY MD Ot Z87.440 PERSONAL HISTORY OF URINARY (TRACT) INFE 11/18/2017 TRACI LOWERY MD Ot Z88.8 ALLERGY STATUS TO [facility] DRUG/MEDS/BIOL SUB 11/18/2017 TRACI LOWERY MD Ot Z90.49 ACQUIRED ABSENCE OF OTHER SPECIFIED PART 11/18/2017 TRACI LOWERY MD Ot Z90.710 ACQUIRED ABSENCE OF BOTH CERVIX AND UTER 11/18/2017 TRACI LOWERY MD Ot Z90.89 ACQUIRED ABSENCE OF OTHER ORGANS 11/18/2017 TRACI LOWERY MD Ot Z95.1 PRESENCE OF AORTOCORONARY BYPASS GRAFT 11/18/2017 TRACI LOWERY MD Ot Z98.890 OTHER SPECIFIED POSTPROCEDURAL STATES 11/21/2017 TRACI LOWERY MD Ot E11.51 TYPE 2 DIABETES W DIABETIC PERIPHERAL AN 11/21/2017 TRACI LOWERY MD Ot E66.9 OBESITY, UNSPECIFIED 11/21/2017 TRACI LOWERY MD Ot E78.00 PURE HYPERCHOLESTEROLEMIA, UNSPECIFIED 11/21/2017 TRACI LOWERY MD Ot F41.9 ANXIETY DISORDER, UNSPECIFIED 11/21/2017 TRACI LOWERY MD Ot I10 ESSENTIAL (PRIMARY) HYPERTENSION 11/21/2017 TRACI LOWERY MD Ot I25.10 ATHSCL HEART DISEASE OF [place] CORONARY 11/21/2017 TRACI LOWERY MD Ot I25.2 OLD MYOCARDIAL INFARCTION 11/21/2017 TRACI LOWERY MD Ot I73.9 PERIPHERAL VASCULAR DISEASE, UNSPECIFIED 11/21/2017 TRACI LOWERY MD Ot K21.9 GASTRO-ESOPHAGEAL REFLUX DISEASE WITHOUT 11/21/2017 TRACI LOWERY MD Ot K29.00 ACUTE GASTRITIS WITHOUT BLEEDING 11/21/2017 TRACI LOWERY MD Ot N39.0 URINARY TRACT INFECTION, SITE NOT SPECIF 11/21/2017 TRACI LOWERY MD Ot R11.0 NAUSEA 11/21/2017 TRACI LOWERY MD Ot Z79.82 SUPERVISOR PLEATING (CURRENT) USE OF ASPIRIN 11/21/2017 TRACI LOWERY MD Ot Z86.010 PERSONAL HISTORY OF COLONIC POLYPS 11/21/2017 TRACI LOWERY MD Ot Z87.19 PERSONAL HISTORY OF OTHER DISEASES OF TH 11/21/2017 TRACI LOWERY MD Ot Z87.440 PERSONAL HISTORY OF URINARY (TRACT) INFE 11/21/2017 TRACI LOWERY MD Ot Z88.8 ALLERGY STATUS TO [facility] DRUG/MEDS/BIOL SUB 11/21/2017 TRACI LOWERY MD Ot Z90.49 ACQUIRED ABSENCE OF OTHER SPECIFIED PART 11/21/2017 TRACI LOWERY MD Ot Z90.710 ACQUIRED ABSENCE OF BOTH CERVIX AND UTER 11/21/2017 TRACI LOWERY MD Ot Z90.89 ACQUIRED ABSENCE OF OTHER ORGANS 11/21/2017 TRACI LOWERY MD Ot Z95.1 PRESENCE OF AORTOCORONARY BYPASS GRAFT 11/21/2017 TRACI LOWERY MD Ot Z98.890 OTHER SPECIFIED POSTPROCEDURAL STATES 02/16/2018 VIKKI GUAMAN DO Ot I25.10 ATHSCL HEART DISEASE OF [place] CORONARY 02/16/2018 VIKKI GUAMAN DO Ot I51.7 CARDIOMEGALY 02/16/2018 VIKKI GUAMAN DO Ot K44.9 DIAPHRAGMATIC HERNIA WITHOUT OBSTRUCTION 02/16/2018 VIKKI GUAMAN DO Ot K57.30 DVRTCLOS OF LG INT W/O PERFORATION OR AB 02/16/2018 ORENDER DO, VIKKI S Ot Z90.49 ACQUIRED ABSENCE OF OTHER SPECIFIED PART 02/16/2018 ORENDER DO, VIKKI S Ot Z90.710 ACQUIRED ABSENCE OF BOTH CERVIX AND UTER 02/16/2018 ORENDER DO, VIKKI S Ot Z95.828 PRESENCE OF OTHER VASCULAR IMPLANTS AND 03/09/2018 ORENDER DO, VIKKI S Ot I25.10 ATHSCL HEART DISEASE OF [place] CORONARY 03/09/2018 ORENDER DO, VIKKI S Ot I51.7 CARDIOMEGALY 03/09/2018 ORENDER DO, VIKKI S Ot K44.9 DIAPHRAGMATIC HERNIA WITHOUT OBSTRUCTION 03/09/2018 ORENDER DO, VIKKI S Ot K57.30 DVRTCLOS OF LG INT W/O PERFORATION OR AB 03/09/2018 ORENDER DO, VIKKI S Ot Z90.49 ACQUIRED ABSENCE OF OTHER SPECIFIED PART 03/09/2018 GUNNERNDER DO, VIKKI S Ot Z90.710 ACQUIRED ABSENCE OF BOTH CERVIX AND UTER 03/09/2018 GUNNERNDER DO, VIKKI S Ot Z95.828 PRESENCE OF OTHER VASCULAR IMPLANTS AND 03/09/2018 PATRICK JIMENEZ DO Ot Z01.818 ENCOUNTER FOR OTHER PREPROCEDURAL EXAMIN 03/10/2018 PATRICK JIMENEZ DO Ot Z01.818 ENCOUNTER FOR OTHER PREPROCEDURAL EXAMIN Procedures There is no data. Results Test [...] measurement (enzymatic activity/volume) 36 U /L 25-125 Complete urinalysis with reflex to culture - 11/18/17 16:28 Urine color determination YELLOW NRG Urine clarity determination CLEAR NRG Urine pH measurement by test strip 6.5 5-9 Specific gravity of urine by test strip 1.010 1.016- 1.022 Urine protein assay by test strip, semi-quantitative NEGATIVE NEGATIVE Urine glucose detection by automated test strip NEGATIVE NEGATIVE Erythrocytes detection in urine sediment by light microscopy NEGATIVE NEGATIVE Urine ketones detection by automated test strip NEGATIVE NEGATIVE Urine nitrite detection by test strip POSITIVE NEGATIVE Urine total bilirubin detection by test strip NEGATIVE NEGATIVE Urine urobilinogen measurement by automated test strip (mass/volume) NORMAL NORMAL Urine leukocyte esterase detection by dipstick 2+ NEGATIVE Automated urine sediment erythrocyte count by microscopy (number/high power field) NONE NRG Automated urine sediment leukocyte count by microscopy (number/high power field ) [HPF] NRG Bacteria detection in urine sediment by light microscopy LARGE NRG Crystals detection in urine sediment by light microscopy NONE NRG Casts detection in urine sediment by light microscopy NONE NRG Mucus detection in urine sediment by light microscopy NEGATIVE NRG Complete urinalysis with reflex to culture YES NRG Bacterial urine culture - 11/18/17 16:28 Bacterial urine culture [id number] NRG COLONY COUNT >100,000/ML NRG FTX;REPORTABLE [facility]ENST[facility]ITY REPORT SENT BY [facility] 11/20 09:05 NRG RM Sensitivity Panel - 11/18/17 16:28 Gentamicin susceptibility test by minimum inhibitory concentration < = NRG Trimethoprim/sulfamethoxazole susceptibility test by minimum inhibitoryconcentration <= NRG Levofloxacin susceptibility test by minimum inhibitory concentration > NRG Ampicillin susceptibility test by minimum inhibitory concentration 8 NRG Cefazolin susceptibility test by minimum inhibitory concentration 2 NRG Ceftriaxone susceptibility test by minimum inhibitory concentration <= NRG Ciprofloxacin susceptibility test by minimum inhibitory concentration > NRG Meropenem susceptibility test by minimum inhibitory concentration < = NRG Nitrofurantoin susceptibility test by minimum inhibitory concentration <= NRG Amoxicillin and clavulanate potassium susc THOMAS <= NRG Complete blood count (CBC) with automated white blood cell (WBC) differential - 11/18/17 18:04 Blood leukocytes automated count (number/volume) 7.2 10*3/uL 4.3-11.0 Blood erythrocytes automated count (number/volume) 4.16 10*6/uL 4.35-5.85 Venous blood hemoglobin measurement (mass/volume) 12.9 g/dL 11.5-16.0 Blood hematocrit (volume fraction) 38 % 35-52 Automated erythrocyte mean corpuscular volume 91 [foz_us] 80-99 Automated erythrocyte mean corpuscular hemoglobin (mass per erythrocyte) 31 pg 25-34 Automated erythrocyte mean corpuscular hemoglobin concentration measurement ( mass/volume) 34 g/dL 32-36 Automated erythrocyte distribution width ratio 13.0 % 10.0-14.5 Automated blood platelet count (count/volume) 164 10*3/uL 130-400 Automated blood platelet mean volume measurement 10.3 [foz_us] 7.4-10.4 Automated blood neutrophils/100 leukocytes 38 % 42-75 Automated blood lymphocytes/100 leukocytes 48 % 12-44 Blood monocytes/100 leukocytes 9 % 0-12 Automated blood eosinophils/100 leukocytes 4 % 0-10 Automated blood basophils/100 leukocytes 1 % 0-10 Blood neutrophils automated count (number/volume) 2.8 10*3 1.8-7.8 Blood lymphocytes automated count (number/volume) 3.5 10*3 1.0-4.0 Blood monocytes automated count (number/volume) 0.7 10*3 0.0-1.0 Automated eosinophil count 0.3 10*3/uL 0.0-0.3 Automated blood basophil count (count/volume) 0.0 10*3/uL 0.0-0.1 Comprehensive metabolic panel - 11/18/17 18:04 Serum or plasma sodium measurement (moles/volume) 139 mmol/L 135-145 Serum or plasma potassium measurement (moles/volume) 3.8 mmol/L 3.6-5.0 Serum or plasma chloride measurement (moles/volume) 107 mmol/L 98-107 Carbon dioxide 20 mmol/L 21-32 Serum or plasma anion gap determination (moles/volume) 12 mmol/L 5-14 Serum or plasma urea nitrogen measurement (mass/volume) 26 mg/dL 7-18 Serum or plasma creatinine measurement (mass/volume) 0.90 mg/dL 0.60-1.30 Serum or plasma urea nitrogen/creatinine mass ratio 29 NRG Serum or plasma creatinine measurement with calculation of estimated glomerular filtration rate 60 NRG Serum or plasma glucose measurement (mass/volume) 73 mg/dL 70-105 Serum or plasma calcium measurement (mass/volume) 9.8 mg/dL 8.5-10.1 Serum or plasma total bilirubin measurement (mass/volume) 0.4 mg/dL 0.1-1.0 Serum or plasma alkaline phosphatase measurement (enzymatic activity/volume) 70 U/L 40-136 Serum or plasma aspartate aminotransferase measurement (enzymatic activity/ volume) 17 U/L 5-34 Serum or plasma alanine aminotransferase measurement (enzymatic activity/volume ) 10 U/L 0-55 Serum or plasma protein measurement (mass/volume) 6.9 g/dL 6.4-8.2 Serum or plasma albumin measurement (mass/volume) 4.1 g/dL 3.2-4.5 CALCIUM CORRECTED 9.7 mg/dL 8.5-10.1 Lipase - 11/18/17 18:04 Lipase 51 U/L 8-78 Encounters ACCT No. Visit Date/Time Discharge Status Pt. Type Provider Facility Loc./Unit Complaint [id number] 03/09/2018 06:22:00 03/09/2018 14:08:00 DIS Outpatient PATRICK JIMENEZ DO [facility] PREOP EGD [id number] 02/14/2018 13:28:00 02/14/2018 23:59:59 CLS Outpatient VIKKI GUAMAN DO S [facility] RAD UPPER ABDOMINAL PAIN, BOWEL CHANGES [id number] 11/18/2017 16:21:00 11/18/2017 20:15:00 DIS Emergency TRACI LOWERY MD [facility] ER NOT FEELING WELL/ABD PAIN [id number] 09/05/2017 11:15:00 09/05/2017 13:09:00 DIS Outpatient LESVIA GALLAGHER OFFICE TECHNOLOGY INSTRUCTOR [facility] REHAB ARTHRITIS AND STENOSIS [id number] 07/09/2017 09:13:00 07/09/2017 23:59:59 CLS Outpatient VIKKI GUAMAN DO S [facility] RAD R CERVICAL PAIN WITH R ARM RADICULOPATHY [id number] 10/14/2016 14:45:00 10/14/2016 15:31:00 DIS Outpatient CAIO GUAMAN DOQUELINE S [facility] REHAB LOW BACK PAIN; LUMBAR DDD [id number] 05/28/2016 09:08:00 05/28/2016 23:59:59 CLS Outpatient DIEGO GUAMAN DOLINE S [facility] RAD SIMON MASTALGIA [id number] 05/16/2016 15:19:00 05/16/2016 19:29:00 DIS Emergency ISIDRA DUPREE DO [facility] ER FALL/COLLAR BONE INJ/R SIDE PAIN [id number] 12/19/2014 13:58:00 12/19/2014 17:00:00 DIS Outpatient PATRICK JIMENEZ DO [facility] SDC FAMILY HX COLON CA, QUESIONABLE BARRETTS [id number] 06/19/2014 14:57:00 06/19/2014 15:33:00 DIS Outpatient VIKKI GUAMAN DO [facility] REHAB THORACIC BACK PAIN / SPASM [id number] 11/23/2012 16:15:00 11/23/2012 18:56:00 DIS Emergency GUILLERMO HERNANDEZ MD [facility] ER HEADACHE,EAR PAIN [id number] 03/14/2018 14:00:00 PEN Preadmit PATRICK JIMENEZ DO [facility] ENDO GERD/EPIGASTRIC ABD PAIN [id number] 12/16/2014 05:44:00 Document Registration [id number] 05/15/2014 19:30:00 Document Registration [id number] 06/19/2012 08:27:00 Document Registration [id number] 09/23/2011 12:55:00 Document Registration 07/201502/19/2018 06:10:41 02/19/2018 23:59:59 CLS Outpatient Vikki Guaman [id number] 06/20/2014 05:54:17 ACT Document Registration
[2018-03-14 07:10] VITALS: BP 170/87
--- NOTE | 2018-03-14 07:46 | Progress Note-Pre Operative ---
Pre-Operative Progress Note H&P Reviewed The H&P was reviewed, patient examined and no changes noted. Date Seen by Provider: Mar 14, 2018 Time Seen by Provider: 07:44 Date H&P Reviewed: Mar 14, 2018 Time H&P Reviewed: 07:44 Pre-Operative Diagnosis: hiatal hernia, epigastric abdominal pain. PATRICK JIMENEZ DO Mar 14, 2018 07:46
--- NOTE | 2018-03-14 08:21 | Discharge Inst-Simple/Standard ---
Discharge Inst-Standard Discharge Medications New, Converted or Re-Newed RX: Transmitted to Pharmacy Patient Instructions/Follow Up Plan of Care/Instructions/FU: 3 weeks Ham Activity as Tolerated: Yes Discharge Diet: Regular Diet PATRICK JIMENEZ DO Mar 14, 2018 08:21
--- NOTE | 2018-03-14 08:23 | Progress Note-Post Operative ---
Post-Operative Progess Note Surgeon (s)/Sheep Rancher (s) Surgeon PATRICK JIMENEZ DO Sheep Rancher: na Pre-Operative Diagnosis hiatal hernia, epigastric abdominal pain. Post-Operative Diagnosis inflammed polyp, hiatal hernia, reflux esophagitis Procedure & Operative Findings Date of Procedure 03/14/18 Procedure Performed/Findings egd c biopsies Anesthesia Type per [facility] Estimated Blood Loss Estimated blood loss (mL): none Specimens/Packing Specimens Removed inflamed polyp, antrum, body, distal esophagus PATRICK JIMENEZ DO Mar 14, 2018 08:23
[2018-03-14 08:30] VITALS: BP 166/75
[2018-03-14 09:00] VITALS: BP 167/89
[2018-03-14 09:10] VITALS: BP 167/89
--- NOTE | 2018-03-14 10:45 | Anesthesia-General Post-Op ---
MAC Patient Condition Mental Status/LOC: Same as Preop Cardiovascular: Satisfactory Nausea/Vomiting: Absent Respiratory: Satisfactory Pain: Controlled Complications: Absent Post Op Complications Complications None Follow Up Care/Instructions Patient Instructions None needed. Anesthesiology Discharge Order Discharge Order Patient is doing well, no complaints, stable vital signs, no apparent adverse anesthesia problems. No complications reported per nursing. JORDEN LUBIN CRNA Mar 14, 2018 10:45
--- NOTE | 2018-03-14 13:17 | OPERATIVE REPORT ---
DATE OF SERVICE: 03/14/2018 PREOPERATIVE DIAGNOSES: Hiatal hernia and epigastric abdominal pain. POSTOPERATIVE DIAGNOSES: Inflamed polyp, hiatal hernia and reflux esophagitis. PROCEDURES: EGD with biopsies. SURGEON: Patrick Cheek DO. ANESTHESIA: Per MDA. ESTIMATED BLOOD LOSS: None. COMPLICATIONS: None. INDICATIONS: The patient is a 77-year-old female who has been having epigastric abdominal pain. She understands risks and benefits of the procedure and wished to proceed with procedure. Consent was signed in the chart. PROCEDURE: The patient was taken to the endoscopy suite and placed in the left lateral recumbent position. Timeout was performed. Scope was inserted in mouth, down the esophagus, stomach and into the duodenum without difficulty. There were no polyps, masses or ulcerations within the duodenum. Scope was slowly retracted back into the stomach where it was further insufflated. Near the pyloric opening, a small inflamed polyp with possible low ulceration was present. Biopsy was obtained. Biopsy of the antrum was obtained as well. There are erythematous changes within the antrum as well. A biopsy of the body of the stomach was obtained as well. Scope was retroflexed just noting a small hiatal hernia with changes of the previous fundoplication. Scope was returned to its normal position and slowly withdrawn to the distal esophagus, which had changes consistent with reflux esophagitis. Biopsies of the distal esophagus were obtained. Scope was then slowly retracted back until completely removed, noting no other pathology. The patient tolerated the procedure well without any complication. She was taken to recovery room in stable condition. RECOMMENDATIONS: The patient is to continue on Protonix and Carafate. Would add Pepcid twice a day. We will see how she is doing in two to three weeks. Any issues before then will be seen at that time. Job ID: [id number] DocumentID: [id number] Dictated Date: 03/14/2018 08:35:30 Game Technician Date: 03/14/2018 13:16:31 Dictated By: PATRICK CHEEK DO
== END | disposition home or self-care (01) ==
LOC: ENDO 06:54
PROVIDERS: ATTEND Surgery
DX: K22.70 Barrett's esophagus without dysplasia (principal); K21.0 Gastro-esophageal reflux disease with esophagitis; K44.9 Diaphragmatic hernia without obstruction or gangrene; K31.7 Polyp of stomach and duodenum; I10 Essential (primary) hypertension; I25.10 Atherosclerotic heart disease of native coronary artery without angina pectoris; E11.51 Type 2 diabetes mellitus with diabetic peripheral angiopathy without gangrene; E66.9 Obesity, unspecified; Z68.38 Body mass index [BMI] 38.0-38.9, adult; Z79.82 Long term (current) use of aspirin; Z79.899 Other long term (current) drug therapy
CPT/HCPCS: 88305; 88312

== ENCOUNTER 2018-09-20 13:25 | Outpatient (RCR) | payer MEDICARE, OTHER ==
[~2018-09-20 13:25] MED LIST changes: -FAMO10TA PO; -HURRICAINE EXT TUBE (BENZOCAINE) XX ONE; -LACTATED RINGERS 1,000 ML IV ONE; -LACTATED RINGERS 1,000 ML IV PRN; -PROPOFOL INJECTION 0 ML IV ONE; +[UNRECOGNIZED DRUG - CODE] PO; -proPOfol 200 MG/20 ML (DIPRIVAN) VIAL IV ONE
== END 2018-09-22 | disposition home or self-care (01) ==
LOC: CR3 13:25
PROVIDERS: ATTEND Family Medicine
DX: Z29.8 Encounter for other specified prophylactic measures (principal)

== ENCOUNTER → 2018-10-25 | Outpatient (RCR) | payer MEDICARE, OTHER | END | disposition home or self-care (01) | LOC: CR3 09-25 16:21 | PROVIDERS: ATTEND Family Medicine | DX: Z29.8 Encounter for other specified prophylactic measures (principal) ==

== ENCOUNTER 2018-11-15 13:10 | Outpatient (RCR) | payer MEDICARE, OTHER | END 2018-11-29 | disposition home or self-care (01) | LOC: CR3 13:10 | PROVIDERS: ATTEND Family Medicine | DX: Z29.8 Encounter for other specified prophylactic measures (principal) ==

== ENCOUNTER 2019-01-01 14:46 | Outpatient (RCR) | payer MEDICARE, OTHER | END 2019-01-03 | disposition home or self-care (01) | LOC: CR3 14:46 | PROVIDERS: ATTEND Family Medicine | DX: Z29.8 Encounter for other specified prophylactic measures (principal) ==

== ENCOUNTER → 2019-03-14 | Outpatient (CLI) | payer MEDICARE, OTHER ==
--- NOTE | 2019-03-14 11:11 | Diagnostic Imaging Report ---
INDICATION: Neck pain and back pain. TIME OF EXAMINATION: 10:16 AM. FINDINGS: The curvature of the cervical spine is normal. Minimal anterolisthesis of C6 on C7 is noted. There is minimal retrolisthesis of C5 on C6. Significant degenerative disc disease at the C5-C6 level is noted with disc space narrowing and marginal spurring. There is multilevel facet arthropathy. The prevertebral tissues are normal. No fractures are seen. The odontoid is limited in evaluation but no gross abnormality is detected. IMPRESSION: Cervical spondylosis. No acute bony abnormality is detected. Dictated by: Dictated on workstation # [id number]
--- NOTE | 2019-03-14 11:11 | Diagnostic Imaging Report ---
INDICATION: Back pain. TIME OF EXAMINATION: 10:24 AM. TECHNIQUE: Frontal, lateral, and swimmer's views of the thoracic spine were obtained. FINDINGS: The curvature and alignment of the thoracic spine are normal. The vertebral body heights are maintained. No acute compression fracture is detected. There is generalized thoracic spondylosis. The paraspinous line is intact. There are changes of median sternotomy. IMPRESSION: Thoracic spondylosis. No acute fracture is detected. Dictated by: Dictated on workstation # [id number]
== END ==
LOC: RAD 09:54
PROVIDERS: ATTEND Family Medicine
DX: M47.812 Spondylosis without myelopathy or radiculopathy, cervical region (principal); M47.814 Spondylosis without myelopathy or radiculopathy, thoracic region
CPT/HCPCS: 72040; 72072

== ENCOUNTER 2019-04-16 19:40 | Emergency (ER) | payer MEDICARE, OTHER ==
[~2019-04-16] VITALS: Ht 157 cm; Wt 98.4 kg
[~2019-04-16 19:40] MED LIST changes: +SIMV40TA25 PO; -SIMV40TA4 PO
[2019-04-16] MEDS ORDERED: ASPIRIN 81 MG CHEW (CHILDREN'S ASA) PO ONE (20:00)
[2019-04-16] MEDS ORDERED: cloNIDine 0.1 MG (CATAPRES) TAB PO ONE (20:00)
[2019-04-16] MEDS ORDERED: ALPRAZolam 0.25 MG (XANAX) TAB PO ONE (20:00)
--- NOTE | 2019-04-16 20:05 | ED General ---
General Stated Complaint: BLOOD PRESSURE HIGH,HEART RACING Source of Information: Patient Exam Limitations: No Limitations History of Present Illness Date Seen by Provider: Apr 16, 2019 Time Seen by Provider: 20:00 Initial Comments To ER with reports of high blood pressure, sensation of palpitations. She took 0.125 mg of alprazolam at about 1915, a metoprolol at 1900. She feels anxious because she got some "bad news about her son". Timing/Duration: 1-2 Days Severity: Moderate Associated Systoms: Denies Symptoms Allergies and Home Medications Allergies Coded Allergies: quinine (Verified Allergy, Mild, RASH, 03/09/18) Home Medications Acetaminophen 500 Mg Tablet, 500 MG PO HS, (Reported) Alprazolam 0.25 Mg Tablet, 0.25 MG PO BID, (Reported) Aspirin 81 Mg Tab.chew, 81 MG PO DAILY, (Reported) Famotidine 10 Mg Tablet, 10 MG PO BID Prescribed by: PATRICK JIMENEZ on 03/14/18 0813 Isosorbide Mononitrate 30 Mg Tab.er.24h, 30 MG PO DAILY, (Reported) Metoprolol Tartrate 50 Mg Tablet, 25 MG PO BID, (Reported) Multivitamin 1 Each Capsule, 1 EACH PO DAILY, (Reported) [place] 3 Polyunsat Fatty Acids 1,000 Mg Cap, 1,000 MG PO DAILY, (Reported) Pantoprazole Sodium 40 Mg Tablet.dr, 40 MG PO BID PRN for HEARTBURN, (Reported) Simvastatin 40 Mg Tablet, 40 MG PO HS, (Reported) Sucralfate 1 Gm Tablet, 1 GM PO PRN PRN for HEARTBURN, (Reported) Patient Home Medication List Home Medication List Reviewed: Yes Review of Systems Review of Systems Constitutional: see HPI EENTM: see HPI Respiratory: see HPI, short of breath Cardiovascular: see HPI, palpitations Genitourinary: no symptoms reported Musculoskeletal: no symptoms reported Skin: no symptoms reported Psychiatric/Neurological: No Symptoms Reported Past [id number] Hx Patient Social History 2nd Hand Smoke Exposure: No Recent Foreign Travel: No Contact w/Someone Who Travel: No Recent Hopitalizations: No Immunizations Up To Date Date of Pneumonia Vaccine: Feb 09, 2010 Date of Influenza Vaccine: Dec 12, 2017 Seasonal Allergies Seasonal Allergies: No Past Medical History Surgeries: Yes Abdominal, Appendectomy, Cardiac, CABG, Gallbladder, Hysterectomy, Joint Replacement, Orthopedic Respiratory: No Cardiac: Yes (CLEAN HEART CATH-DEC 2017) Coronary Artery Disease, Heart Attack, High Cholesterol, Hypertension, Peripheral Vascular Neurological: No Reproductive Disorders: No 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, 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 Sexually Transmitted Disease: No Genitourinary: Yes UTI-Chronic Gastrointestinal: Yes (SPASTIC COLON/HIATAL HERNIA/GI BLEED-ULCERS, gastric polyp) Gastroesophageal Reflux, Gastrointestinal Bleed, Diverticulosis, Hiatal Hernia, Ulcer Musculoskeletal: Yes (RIGHT KNEE REPLACEMENT) Arthritis Endocrine: Yes ("DIET CONTROLLED", OBESITY) Diabetes, Non-Insulin dep HEENT: No Cancer: No Psychosocial: Yes Anxiety Integumentary: No Blood Disorders: No Adverse Reaction/Blood Tranf: No Physical Exam Vital Signs Vital Signs - First Documented 04/16/19 19:46 Temp 36.7 Pulse 78 Resp 20 B/P (MAP) 240/105 (150) Capillary Refill : Height, Weight, BMI Height: 5'2.00" Weight: 210lbs. 6.0oz. 95.998694or; 38.5 BMI Method:Stated General Appearance: No Apparent Distress, WD/WN Eyes: Bilateral Eye Normal Inspection, Bilateral Eye PERRL, Bilateral Eye EOMI HEENT: PERRL/EOMI, TMs Normal Neck: Full Range of Motion, Normal Inspection Respiratory: No Accessory Muscle Use, No Respiratory Distress Cardiovascular: Regular Rate, Rhythm, Normal Peripheral Pulses Gastrointestinal: Normal Bowel Sounds, Non Tender, Soft Extremity: Normal Capillary Refill, Normal Inspection Neurologic/Psychiatric: Alert, Oriented x3 Skin: Normal Color, Warm/Dry Progress/Results/Core Measures Suspected Sepsis SIRS Temperature: Pulse: Respiratory Rate: Laboratory Tests 04/16/19 20:25: White Blood Count 7.0 Blood Pressure / Mean: Laboratory Tests 04/16/19 20:25: Creatinine 0.95, INR Comment 0.9, Platelet Count 167, Total Bilirubin 0.3 Results/Orders Lab Results Laboratory Tests Test 04/16/19 20:25 Range/Units White Blood Count 7.0 4.3-11.0 10^3/uL Red Blood Count 4.10 L 4.35-5.85 10^6/uL Hemoglobin 12.2 11.5-16.0 G/DL Hematocrit 38 35-52 % Mean Corpuscular Volume 92 80-99 FL Mean Corpuscular Hemoglobin 30 25-34 PG Mean Corpuscular Hemoglobin Concent 32 32-36 G/DL Red Cell Distribution Width 13.3 10.0-14.5 % Platelet Count 167 130-400 10^3/uL Mean Platelet Volume 10.6 H 7.4-10.4 FL Neutrophils (%) (Auto) 40 L 42-75 % Lymphocytes (%) (Auto) 48 H 12-44 % Monocytes (%) (Auto) 8 0-12 % Eosinophils (%) (Auto) 4 0-10 % Basophils (%) (Auto) 0 0-10 % Neutrophils # (Auto) 2.8 1.8-7.8 X 10^3 Lymphocytes # (Auto) 3.4 1.0-4.0 X 10^3 Monocytes # (Auto) 0.6 0.0-1.0 X 10^3 Eosinophils # (Auto) 0.3 0.0-0.3 10^3/uL Basophils # (Auto) 0.0 0.0-0.1 10^3/uL Prothrombin Time 12.7 12.2-14.7 SEC INR Comment 0.9 0.8-1.4 Activated Partial Thromboplast Time 26 24-35 SEC Sodium Level 140 135-145 MMOL/L Potassium Level 3.8 3.6-5.0 MMOL/L Chloride Level 108 H 98-107 MMOL/L Carbon Dioxide Level 21 21-32 MMOL/L Anion Gap 11 5-14 MMOL/L Blood Urea Nitrogen 14 7-18 MG/DL Creatinine 0.95 0.60-1.30 MG/DL Estimat Glomerular Filtration Rate 57 BUN/Creatinine Ratio 15 Glucose Level 105 70-105 MG/DL Calcium Level 9.3 8.5-10.1 MG/DL Corrected Calcium 9.3 8.5-10.1 MG/DL Magnesium Level 2.0 1.6-2.4 MG/DL Total Bilirubin 0.3 0.1-1.0 MG/DL Aspartate Amino Transf (AST/SGOT) 17 5-34 U/L Alanine Aminotransferase (ALT/SGPT) 15 0-55 U/L Alkaline Phosphatase 68 40-136 U/L Myoglobin 52.2 10.0-92.0 NG/ML Troponin I < 0.028 <0.028 NG/ML B-Type Natriuretic Peptide 322.6 H <100.0 PG/ML Total Protein 6.7 6.4-8.2 GM/DL Albumin 4.0 3.2-4.5 GM/DL My Orders Orders - CHAS GALLEGOS APRN Cbc With Automated Diff (04/16/19 19:57) Magnesium (04/16/19 19:57) Chest 1 View, Ap/Pa Only (04/16/19 19:57) Ekg Tracing (04/16/19 19:57) Comprehensive Metabolic Panel (04/16/19 19:57) Myoglobin Serum (04/16/19 19:57) Protime With Inr (04/16/19 19:57) Partial Thromboplastin Time (04/16/19 19:57) O2 (04/16/19 19:57) Lipid Panel (04/17/19 06:00) Ed Iv/Invasive Line Start (04/16/19 19:57) BNP (04/16/19 19:57) Troponin I (04/16/19 19:57) Aspirin Chewable Tablet (Baby Aspirin Ch (04/16/19 20:00) Alprazolam Tablet (Xanax Tablet) (04/16/19 20:00) Clonidine Tablet (Catapres Tablet) (04/16/19 20:00) Medications Given in ED Current Medications Medications Dose Ordered Sig/Rocio Route Start Time Stop Time Status Last Admin Dose Admin Alprazolam 0.125 mg ONCE ONCE PO 04/16/19 20:00 04/16/19 20:01 DC 04/16/19 20:04 0.125 MG Aspirin 324 mg ONCE ONCE PO 04/16/19 20:00 04/16/19 20:01 DC 04/16/19 20:04 324 MG Clonidine HCl 0.2 mg ONCE ONCE PO 04/16/19 20:00 04/16/19 20:01 DC 04/16/19 20:04 0.2 MG Vital Signs/I&O 04/16/19 19:46 Temp 36.7 Pulse 78 Resp 20 B/P (MAP) 240/105 (150) Capillary Refill : Diagnostic Imaging Diagonstic Imaging: Xray Comments NAME: TAE JORGENSENTRACEY Ch Zevia REC#: [id number] PT STATUS: REG ER : 1940 PHYSICIAN: CHAS GALLEGOS APRN ADMIT DATE: 04/16/19/ER Draft Date of Exam:04/16/19 CHEST 1 VIEW, AP/PA ONLY Hypertension Portable upright AP view of the chest is obtained with comparison made study of 05/16/2016. Heart size is at the upper limits of normal. Pulmonary vascularity is unremarkable. There is probable linear scarring in the left base. Otherwise, no pneumothorax, consolidation or adverse change is identified. IMPRESSION: No acute abnormality. Dictated on workstation # [id number] Dict: 04/16/192048 Trans: 04/16/192050 [facility] [id number] Interpreted by: GUZMAN DOCKERY MD Electronically signed by: Departure Communication (Admissions) Blood pressure 109, sitting up in bed alert and oriented very pleasant states she is feeling much better. Impression Primary Impression: Anxiety Disposition: 01 HOME, SELF-CARE Condition: Stable Departure-Patient Inst. Decision time for Depature: 21:35 Referrals: SHAHZAD GALVIN DO (PCP/Family) Primary Care Physician Patient Instructions: Anxiety, Adult (DC), Palpitations (DC) Add. Discharge Instructions: 1. 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 Call tomorrow to make an appointment. Return to ER for any concerns Copy Copies To 1: SHAHZAD GALVIN PETER J APRN Apr 16, 2019 20:05
[2019-04-16 20:36] LABS: BASOPHILS % (AUTO) 0 % (0-10); EOSINOPHILS # (AUTO) 0.3 10^3/uL (0.0-0.3); EOSINOPHILS % (AUTO) 4 % (0-10); HEMATOCRIT 38 % (35-52); HEMOGLOBIN 12.2 G/DL (11.5-16.0); LYMPHOCYTES # (AUTO) 3.4 X 10^3 (1.0-4.0); LYMPHOCYTES % (AUTO) 48 % (12-44); MEAN CORPUSCULAR HEMOGLOBIN 30 PG (25-34); MEAN CORPUSCULAR HGB CONC 32 G/DL (32-36); MEAN CORPUSCULAR VOLUME 92 FL (80-99); MEAN PLATELET VOLUME 10.6 FL (7.4-10.4); MONOCYTES # (AUTO) 0.6 X 10^3 (0.0-1.0); MONOCYTES % (AUTO) 8 % (0-12); NEUTROPHILS # (AUTO) 2.8 X 10^3 (1.8-7.8); NEUTROPHILS % (AUTO) 40 % (42-75); PLATELET COUNT 167 10^3/uL (130-400); RED CELL DISTRIBUTION WIDTH 13.3 % (10.0-14.5)
--- NOTE | 2019-04-16 20:51 | Diagnostic Imaging Report ---
Hypertension Portable upright AP view of the chest is obtained with comparison made study of 05/16/2016. Heart size is at the upper limits of normal. Pulmonary vascularity is unremarkable. There is probable linear scarring in the left base. Otherwise, no pneumothorax, consolidation or adverse change is identified. IMPRESSION: No acute abnormality. Dictated by: Dictated on workstation # [id number]
[2019-04-16 20:57] LABS: BILIRUBIN,TOTAL 0.3 MG/DL (0.1-1.0); CALCIUM 9.3 MG/DL (8.5-10.1); CREATININE SERUM 0.95 MG/DL (0.60-1.30); POTASSIUM 3.8 MMOL/L (3.6-5.0); TOTAL PROTEIN 6.7 GM/DL (6.4-8.2)
[2019-04-16 21:15] LABS: INR 0.9 (0.8-1.4); PROTHROMBIN TIME PATIENT 12.7 SEC (12.2-14.7)
[2019-04-16 21:42] VITALS: BP 102/47
--- OUTSIDE RECORDS SUMMARY | 2019-04-25 20:14 | XMS REPORT | CCD ---
Author Author Evelyne Guaman D.O. Organization [facility] Address [address] [place] [address] Phone Care Team Providers Care Sheet Sewer Name Role Phone Vikki Guaman D.O. PP Unavailable CCM Unavailable Summary Purpose Interface Exchange Insurance Providers Payer name Policy type / Coverage type Covered alliance party ID Effective Begin Date Effective End Date WPS MEDICARE PART B [place] Medicare Part B [id number] Unknown Aetna [facility] Medicare Part B [id number] Unknown Family history Father Diagnosis Age At Onset Heart disease Unknown Mother Diagnosis Age At Onset Heart disease Unknown Cancer Unknown Social History Social History Element Codes Description Effective Dates Tobacco history SNOMED CT: 394800917 Never smoker 09/29/2010 Marital status Unknown Single 06/09/2009 Number of children Unknown 9 06/09/2009 Allergies, Adverse Reactions, Alerts Substance Reaction Codes Entered Date Inactivated Date Status _ Unknown 05/10/2018 No Inactive Date Active * NO KNOWN FOOD ALLERGIES Unknown 06/09/2009 No Inactiv e Date Active _ Unknown 06/09/2009 No Inactive Date Active QUINIDINE-QUININE ANALOGUES hives, Unknown 06/09/2009 No Inact kyle Date Active Problems Condition Codes Effective Dates Condition Status Essential (primary) hypertension ICD-9: 401.9 ICD-10: I10 09/24/2013 Active Generalized anxiety disorder ICD-9: 300.00 ICD-10: F41.1 11/22/2017 Active Palpitations ICD-9: 785.1 ICD-10: R00.2 12/06/2017 Active Stress reaction ICD-9: 308.9 ICD-10: F43.0 03/13/2019 Active Mixed hyperlipidemia ICD-9: 272.4 ICD-10: E78.2 01/23/2019 Active FLU VACCINE ICD-9: V04.81 ICD-10: Z23 12/02/2011 Active Acute serous otitis media, left ear ICD-9: 381.01 ICD-10: H65.02 11/07/2018 Active Coronary atherosclerosis due to calcified coronary les ion ICD-9: 414.00 ICD-10: I25.84 11/30/2017 Active Hypoglycemia, unspecified ICD-9: 251.2 ICD-10: E16.2 05/13/2016 Active Other fatigue ICD-9: 780.79 ICD-10: R53.83 05/12/2016 Active Urinary tract infection, site not specified ICD-9: 599 .0 ICD-10: N39.0 12/06/2017 Active Gastro-esophageal reflux disease without esophagitis I CD-9: 530.81 ICD-10: K21.9 10/20/2017 Active Epigastric pain ICD-9: 789.06 ICD-10: R10.13 11/22/2017 Active Atherosclerotic heart disease of [place] coronary arter y without angina pectoris ICD-9: 414.00 ICD-10: I25.10 01/10/2018 Active Dizziness and giddiness ICD-9: 780.4 ICD-10: R42 09/24/2013 Active Occlusion and stenosis of bilateral carotid arteries I CD-9: 433.10 ICD-10: I65.23 11/30/2017 Active Cervicalgia ICD-9: 723.1 ICD-10: M54.2 08/16/2017 Active Other spondylosis with radiculopathy, cervical region ICD-9: 721.0 ICD-10: M47.22 07/07/2017 Active Cervicocranial syndrome ICD-9: 723.2 ICD-10: M53.0 07/07/2017 Active Vertigo of central origin, bilateral ICD-9: 386.2 ICD-10: H81.43 07/07/2017 Active Benign paroxysmal vertigo, bilateral ICD-9: 386.11 ICD-10: H81.13 05/30/2017 Active Otalgia, bilateral ICD-9: 388.70 ICD-10: H92.03 05/30/2017 Active Left lower quadrant pain ICD-9: 789.04 ICD-10: R10.32 09/20/2016 Active Low back pain ICD-9: 724.2 ICD-10: M54.5 09/20/2016 Active Radiculopathy, lumbosacral region ICD-9: 724.4 ICD-10: M54.17 04/18/2017 Active Impaired fasting glucose ICD-9: 790.29 ICD-10: R73.01 02/23/2012 Active Other intervertebral disc degeneration, lumbar region ICD-9: 722.52 ICD-10: M51.36 10/25/2016 Active Pain in thoracic spine ICD-9: 724.1 ICD-10: M54.6 10/25/2016 Active Mastodynia ICD-9: 611.71 ICD-10: N64.4 05/12/2016 Active Acute upper respiratory infection, unspecified ICD-9: 465.9 ICD-10: J06.9 03/18/2016 Active Acute mastoiditis without complications, right ear ICD -9: 383.00 ICD-10: H70.001 02/05/2016 Active Constipation, unspecified ICD-9: 564.00 ICD-10: K59.00 08/25/2015 Active Chronic kidney disease, stage 1 ICD-9: 585.1 ICD-10: N18.1 05/20/2015 Active History of falling ICD-9: V15.88 ICD-10: Z91.81 02/18/2015 Active Muscle weakness (generalized) ICD-9: 780.79 ICD-10: M62.81 02/19/2015 Active Acute renal failure ICD-9: 584.9 11/18/2014 Active POLYURIA ICD-9: 788.42 11/18/2014 Active CAD ICD-9: 414.00 11/14/2014 Active Hyperglycemia ICD-9: 790.29 02/23/2012 Active HYPERLIPIDEMIA NEC/NOS ICD-9: 272.4 11/14/2014 Active ABDOMINAL PAIN ICD-9: 789.00 12/15/2011 Active Grieving ICD-9: 309.0 11/12/2014 Active HYPOGLYCEMIA ICD-9: 251.2 09/21/2011 Active MALAISE AND FATIGUE ICD-9: 780.79 11/13/2014 Active CERUMEN IMPACTION ICD-9: 380.4 09/27/2014 Active Leg pain ICD-9: 729.5 07/11/2014 Active SUPERFIC PHLEBITIS-LEG ICD-9: 451.0 07/11/2014 Active SPASM OF MUSCLE ICD-9: 728.85 05/23/2014 Active Thoracic back pain ICD-9: 724.1 05/23/2014 Active Benign positional vertigo ICD-9: 386.11 03/20/2014 Active Suspicious nevus ICD-9: 238.2 03/20/2014 Active EUSTACHIAN TUBE DYSFUNCTION ICD-9: 381.81 10/17/2013 Acti ve SINUSITIS, ACUTE ICD-9: 461.9 10/17/2013 Active DIZZINESS/VERTIGO ICD-9: 780.4 09/24/2013 Active HYPERTENSION ICD-9: 401.9 09/24/2013 Active URI, ACUTE ICD-9: 465.9 12/19/2012 Active CEPHALGIA ICD-9: 784.0 11/27/2012 Active OTITIS MEDIA NOS ICD-9: 382.9 07/27/2012 Active Perforation of ear drum ICD-9: 384.20 07/14/2012 Active Mastalgia ICD-9: 611.71 06/08/2012 Active DYSPEPSIA ICD-9: 536.8 12/15/2011 Active IBS ICD-9: 564.1 12/15/2011 Active FLU VACCINE ICD-9: V04.81 12/02/2011 Active Radiculopathy of leg ICD-9: 724.4 08/16/2011 Active SCIATICA ICD-9: 724.3 08/03/2011 Active Lumbar degenerative disc disease ICD-9: 722.52 06/28/2011 Active Sacroiliac dysfunction ICD-9: 739.4 06/28/2011 Active Hypertension Unknown 04/01/2011 Active PAIN, LOWER BACK ICD-9: 724.2 04/06/2010 Active SPINAL ENTHESOPATHY ICD-9: 720.1 04/06/2010 Active Hypotension ICD-9: 458.9 04/01/2010 Active SACROILIITIS NEC ICD-9: 720.2 04/01/2010 Active PHARYNGITIS, ACUTE ICD-9: 462 01/22/2010 Active URINARY TRACT INFECTION ICD-9: 599.0 12/02/2009 Active Heat exhaustion ICD-9: 992.5 10/21/2009 Active Esophagitis ICD-9: 530.10 08/11/2009 Active Gastritis ICD-9: 535.50 08/11/2009 Active GERD ICD-9: 530.81 08/11/2009 Active Hiatal hernia ICD-9: 553.3 08/11/2009 Active B12 DEFIC ANEMIA NEC ICD-9: 281.1 06/10/2009 Active Anxiety Unknown 06/09/2009 Active Heart disease Unknown 06/09/2009 Active Hyperlipidemia Unknown 06/09/2009 Active ANXIETY STATE NOS ICD-9: 300.00 06/09/2009 Active DEPRESSIVE DISORDER NEC ICD-9: 311 06/09/2009 Active Medications Medication Codes Instructions Start Date Stop Date Status Fill Instructions isosorbide mononitrate ER 30 mg tablet,extended release 24 h r RxNorm: 635983 1 Tablet(s) Oral every night at bedtime 04/04/2019 12/30/2019 Active Flonase Allergy Relief 50 mcg/actuation nasal spray,suspensi on RxNorm: 2058325 2 [place] Nasal every night at bedtime 04/04/2019 04/04/2019 Inactive metoprolol tartrate 25 mg tablet RxNorm: 058585 1 Table t(s) Oral QAM and two tablets (50mg) in the evening--clarification/dose change 04/03/2019 Active simvastatin 40 mg tablet RxNorm: 619264 1 Tablet(s) Oral QD 020 12/24/2019 Active omeprazole 40 mg capsule,delayed release RxNorm: 859615 1 Capsu le(s) Oral QD 03/30/2019 12/24/2019 Active Flonase Allergy Relief 50 mcg/actuation nasal spray,suspensi on RxNorm: 1454630 2 [place] Nasal every night at bedtime 03/30/2019 03/30/2019 Inactive isosorbide mononitrate ER 30 mg tablet,extended release 24 h r RxNorm: 161225 1 Tablet(s) Oral every night at bedtime 03/30/2019 04/03/2019 Inactive metoprolol tartrate 25 mg tablet RxNorm: 794734 1 Table t(s) Oral QAM and two tablets (50mg) in the evening 03/30/2019 04/02/2019 Inactive omeprazole 40 mg capsule,delayed release RxNorm: 252904 1 Capsu le(s) Oral QD 03/27/2019 03/29/2019 Inactive Xanax 0.25 mg tablet RxNorm: 120862 TAKE 1 TABLET BY [facility] TWICE DAILY 1 Tablet(s) Oral two times a day as needed as needed for anxiety 03/27/2019 03/27/2019 Inactive simvastatin 40 mg tablet RxNorm: 910792 1 Tablet(s) Oral QD 020 03/29/2019 Inactive metoprolol tartrate 25 mg tablet RxNorm: 912093 1 Table t(s) Oral QAM and two tablets (50mg) in the evening 03/27/2019 03/29/2019 Inactive metoprolol tartrate 25 mg tablet RxNorm: 671760 1 Table t(s) Oral QAM and two tablets (50mg) in the evening 03/20/2019 03/26/2019 Inactive Flonase Allergy Relief 50 mcg/actuation nasal spray,suspensi on RxNorm: 3482472 2 [place] Nasal every night at bedtime 03/13/2019 03/13/2019 Inactive simvastatin 40 mg tablet RxNorm: 835510 1 Tablet(s) PO QD 01/22/2019 03/26/2019 Inactive omeprazole 40 mg capsule,delayed release RxNorm: 173627 1 Capsu le(s) Oral QD 01/10/2019 03/26/2019 Inactive Xanax 0.25 mg tablet RxNorm: 633319 TAKE 1 TABLET BY MOUTH TWIC E DAILY 01/02/2019 03/26/2019 Inactive omeprazole 40 mg capsule,delayed release RxNorm: 921267 1 Capsu le(s) PO QD 12/11/2018 01/09/2019 Inactive metoprolol tartrate 25 mg tablet RxNorm: 627459 1 Tablet(s) PO BID 11/20/2018 03/19/2019 Inactive omeprazole 40 mg capsule,delayed release RxNorm: 823144 1 Capsu le(s) PO QD 11/13/2018 12/10/2018 Inactive Flonase Allergy Relief 50 mcg/actuation nasal spray,suspensi on RxNorm: 7321663 2 [place] NASAL QHS 11/07/2018 03/12/2019 Inactive simvastatin 40 mg tablet RxNorm: 289765 1 Tablet(s) PO QD 10/23/2018 01/20/2019 Inactive simvastatin 40 mg tablet RxNorm: 879783 1 Tablet(s) PO QD 07/24/2018 10/21/2018 Inactive omeprazole 40 mg capsule,delayed release RxNorm: 043810 1 Capsu le(s) PO QD 07/13/2018 11/09/2018 Inactive simvastatin 40 mg tablet RxNorm: 096588 1 Tablet(s) PO QD 06/13/2018 07/12/2018 Inactive omeprazole 40 mg capsule,delayed release RxNorm: 781021 1 Capsu le(s) PO QD 06/13/2018 07/12/2018 Inactive Bactrim DS 800 mg-160 mg tablet RxNorm: 921614 1 Tablet(s) PO BID 0 05/12/2018 05/18/2018 Inactive Bactrim DS 800 mg-160 mg tablet RxNorm: 771949 1 Tablet(s) PO BID 0 05/12/2018 05/11/2018 Inactive Macrobid 100 mg capsule RxNorm: 752954 1 Capsule(s) PO BID 05/11/1905/16/2018 Inactive metoprolol tartrate 25 mg tablet RxNorm: 577666 1 Tablet(s) PO BID 05/10/2018 11/05/2018 Inactive Xanax 0.25 mg tablet RxNorm: 363758 TAKE 1 TABLET BY MOUTH TWIC E DAILY 02/16/2018 01/01/2019 Inactive Xanax 0.25 mg tablet RxNorm: 215867 1 Tablet(s) PO BID 02/14/2018 Inactive Protonix 40 mg tablet,delayed release RxNorm: 085227 1 Tablet(s) PO BID for stomach--replaces omeprazole 01/10/2018 05/09/2018 Inactive Carafate 1 gram tablet RxNorm: 904147 1 Tablet(s) PO AC & HS 201705/09/2018 Inactive Xanax 0.25 mg tablet RxNorm: 533179 1 Tablet(s) PO BID 01/03/201812/2017 Inactive Bactrim DS 800 mg-160 mg tablet RxNorm: 072704 1 Tablet(s) PO BID 1 12/12/2017 Inactive Bactrim DS 800 mg-160 mg tablet RxNorm: 455882 1 Tablet(s) PO BID 1 12/07/2017 Inactive Carafate 1 gram tablet RxNorm: 210855 1 Tablet(s) PO AC & HS 201712/21/2017 Inactive Protonix 40 mg tablet,delayed release RxNorm: 875179 1 Tablet(s) PO BID for stomach--replaces omeprazole 11/22/2017 01/09/2018 Inactive Protonix 40 mg tablet,delayed release RxNorm: 714888 1 Tablet(s) PO BID for stomach--replaces omeprazole 10/20/2017 11/21/2017 Inactive fluticasone 50 mcg/actuation nasal spray,suspension RxNorm: 0294105 2 [place] NASAL QD to each nostril 07/07/2017 08/13/2018 Inactive Nasonex 50 mcg/actuation [place] RxNorm: 7820114 2 [place] NASAL 201707/07/2017 Inactive omeprazole 40 mg capsule,delayed release RxNorm: 927715 1 Capsu le(s) PO QD 04/18/2017 10/19/2017 Inactive simvastatin 40 mg tablet RxNorm: 439998 1 Tablet(s) PO QD TAKE 1 TABLET EVERY DAY 04/18/2017 04/12/2018 Inactive metoprolol tartrate 25 mg tablet RxNorm: 751198 1/2 Tablet(s) PO QD 04/18/2017 01/09/2018 Inactive simvastatin 40 mg tablet RxNorm: 515859 Tablet(s) TAKE 1 TABLET EVERY DAY 10/27/2016 04/17/2017 Inactive metoprolol tartrate 25 mg tablet RxNorm: 603344 1/2 Tablet(s) PO QD 09/20/2016 03/18/2017 Inactive Flonase 50 mcg/actuation nasal spray,suspension RxNorm: 1797 933 2 [place] NASAL BID 09/20/2016 04/17/2017 Inactive omeprazole 40 mg capsule,delayed release RxNorm: 205545 1 Capsu le(s) PO QD 09/08/2016 04/17/2017 Inactive metoprolol tartrate 25 mg tablet RxNorm: 617572 1/2 Tablet(s) PO QD 06/14/2016 09/19/2016 Inactive ciprofloxacin 0.2 % ear drops in a dropperette RxNorm: 80346 6 4 Drop(s) OTIC TID for 1 week 02/06/2016 05/11/2016 Inactive cefdinir 300 mg capsule RxNorm: 375384 2 Capsule(s) PO QD 02/06/2016 02/15/2016 Inactive omeprazole 40 mg capsule,delayed release RxNorm: 091420 TAKE 1 CAPSULE EVERY DAY 11/06/2015 09/08/2016 Inactive simvastatin 40 mg tablet RxNorm: 963953 TAKE 1 TABLET EVERY DAY 05/201510/27/2016 Inactive Flonase 50 mcg/actuation nasal spray,suspension RxNorm: 1797 933 2 [place] NASAL BID 02/19/2015 09/19/2016 Inactive cefuroxime axetil 250 mg tablet RxNorm: 889986 1 Tablet(s) PO BID 0 11/21/2014 11/20/2014 Inactive cefuroxime axetil 250 mg tablet RxNorm: 638340 1 Tablet(s) PO BID 0 11/21/2014 11/27/2014 Inactive omeprazole 40 mg capsule,delayed release RxNorm: 617991 1 Capsu le(s) PO QD 10/09/2014 01/05/2015 Inactive meloxicam 7.5 mg tablet RxNorm: 626083 1 Tablet(s) PO QD 07/11/2014 0 08/09/2014 Inactive loratadine 10 mg tablet RxNorm: 753390 1 Tablet(s) PO QAM for a llergies 10/17/2013 08/13/2018 Inactive Flonase 50 mcg/actuation nasal spray,suspension RxNorm: 8963 23 2 [place] NASAL BID 10/17/2013 02/18/2015 Inactive prednisone 20 mg tablet RxNorm: 229786 2 Tablet(s) PO BID 10/17/2013 10/21/2013 Inactive Dyazide 37.5 mg-25 mg capsule RxNorm: 989910 1 Capsule(s) PO QAM 10/16/2013 Inactive Ceftin 500 mg tablet RxNorm: 554588 1 Tablet(s) PO BID 05/31/201307/2013 Inactive Ceftin 500 mg tablet RxNorm: 767583 1 Tablet(s) PO BID 03/26/2013 Inactive simvastatin 40 mg tablet RxNorm: 350780 Tablet(s) PO TA KE ONE TABLET BY MOUTH EVERY DAY 03/26/2013 10/07/2015 Inactive metoprolol tartrate 25 mg tablet RxNorm: 541843 Tablet( s) PO TAKE ONE-HALF TABLET BY MOUTH EVERY DAY 03/26/2013 11/12/2014 Inactive Ceftin 500 mg tablet RxNorm: 031375 1 Tablet(s) PO BID 12/19/2012 Inactive loratadine 10 mg tablet RxNorm: 440384 1 Tablet(s) PO QAM for a llergies 10/04/2012 12/02/2012 Inactive omeprazole 20 mg capsule,delayed release RxNorm: 666087 Capsule(s) PO TAKE ONE CAPSULE BY MOUTH TWICE DAILY 08/09/2012 10/08/2014 Inactive omeprazole 20 mg capsule,delayed release RxNorm: 236049 1 Capsu le(s) PO BID 08/09/2012 05/09/2018 Inactive Augmentin 875 mg-125 mg tablet RxNorm: 779291 1 Tablet(s) PO Q12H 0 07/14/2012 07/23/2012 Inactive Floxin Otic Drops 1 bottle Drops RxNorm: 5 Drop(s) OTIC BID 07/20/2012 Inactive metoprolol tartrate 25 mg tablet RxNorm: 979590 Tablet( s) PO TAKE ONE-HALF TABLET BY MOUTH EVERY DAY 04/11/2012 03/25/2013 Inactive simvastatin 40 mg tablet RxNorm: 333866 Tablet(s) PO TA KE ONE TABLET BY MOUTH EVERY DAY 04/11/2012 03/25/2013 Inactive lancets RxNorm: Misc Miscellaneous USE ONE TO CH JEFFERY GLUCOSE EVERY DAY 04/04/2012 05/09/2018 Inactive Carafate 1 gram tablet RxNorm: 189718 1 Tablet(s) PO AC & HS 201111/12/2014 Inactive Flagyl 500 mg tablet RxNorm: 893520 1 Tablet(s) PO TID 12/15/2011 Inactive Carafate 1 gram tablet RxNorm: 658410 1 Tablet(s) PO AC & HS 201102/12/2012 Inactive One Touch Test strips RxNorm: Miscellaneous QD 09/21/2011 05/09/2018 Inactive one touch ultra mini test strips Protonix 40 mg Tab RxNorm: 648733 1 Tablet(s) PO QD 09/13/20112011 Inactive Protonix 40 mg Tab RxNorm: 142584 1 Tablet(s) PO QD 09/13/20112011 Inactive prednisone 20 mg Tab RxNorm: 882210 1 Tablet(s) PO BID 08/03/201106/2011 Inactive Flexeril 5 mg Tab RxNorm: 254040 1 Tablet(s) PO QHS for spasm 07/2508/24/2011 Inactive Flexeril 5 mg Tab RxNorm: 723781 1 Tablet(s) PO QHS for spasm 06/2707/25/2011 Inactive amlodipine 2.5 mg Tab RxNorm: 931293 1/2 Tablet(s) PO QD replac es 5mg dose 03/31/2011 06/27/2011 Inactive simvastatin 40 mg tablet RxNorm: 312797 1 Tablet(s) PO QD 03/31/2011 03/24/2012 Inactive metoprolol tartrate 25 mg tablet RxNorm: 358550 1/2 Tablet(s) PO QD 03/31/2011 03/24/2012 Inactive omeprazole 20 mg capsule,delayed release RxNorm: 776583 1 Capsu le(s) PO BID 03/31/2011 09/12/2011 Inactive cefdinir 300 mg Cap RxNorm: 148519 2 Capsule(s) PO QD 02/11/201102/04 Inactive simvastatin 40 mg Tab RxNorm: 950798 1 Tablet(s) PO QD 02/01/2011 Inactive metoprolol tartrate 25 mg Tab RxNorm: 102781 1/2 Tablet(s) PO QD 03/30/2011 Inactive metoprolol tartrate 25 mg Tab RxNorm: 112568 1/2 Tablet(s) PO QD 12/28/2010 Inactive meclizine 25 mg Tab RxNorm: 9689904 1 Tablet(s) PO QHS 10/15/201011/2010 Inactive for dizziness Ceftin 500 mg Tab RxNorm: 894380 1 Tablet(s) PO BID 07/02/20102010 Inactive omeprazole 20 mg Cap, Delayed Release RxNorm: 581508 1 Capsule( s) PO BID 07/02/2010 12/28/2010 Inactive simvastatin 40 mg Tab RxNorm: 980061 1 Tablet(s) PO QD 06/30/201007/2018 Inactive simvastatin 40 mg Tab RxNorm: 002791 1 Tablet(s) PO QD 06/30/2010 Inactive simvastatin 40 mg Tab RxNorm: 055117 1 Tablet(s) PO QD 02/25/2010 Inactive Tessalon Perles 100 mg Cap RxNorm: 848562 1 Capsule(s) PO Q6-8H 01/28/2010 Inactive cefdinir 300 mg Cap RxNorm: 438824 1 Capsule(s) PO BID 01/22/2010 Inactive Lexapro 10 mg Tab RxNorm: 777033 1 Tablet(s) PO QD 12/02/2009 010 Inactive Cipro 250 mg Tab RxNorm: 480539 1 Tablet(s) PO BID 12/02/2009 010 Inactive Wellbutrin XL 150 mg 24 hr Tab RxNorm: 745846 1 Tablet(s) PO QAM 08/07/2009 Inactive Fish Oil 1,000 mg Cap RxNorm: 1 Capsule(s) PO QD No Start Date Active Tylenol Extra Strength 500 mg tablet RxNorm: 951969 1/2 Tablet( s) PO as needed No Start Date Active nitroglycerin 0.4 mg sublingual tablet RxNorm: 250391 Tablet(s) SL as needed No Start Date Active Calcium with Vitamin D 600 mg (1,500 mg)-400 unit tablet RxN orm: 781293 1 Tablet(s) PO QD No Start Date Active Multivitamin & Mineral Formula Tab RxNorm: 1 Tablet(s) PO QD No St art Date Active vitamin B complex capsule RxNorm: 1 Capsule(s) PO QD No Start Date Active Aspirin 81 mg Tab RxNorm: 805839 1 Tablet(s) PO QD No Start Date Active Vitamin D 1,000 unit Cap RxNorm: 992594 1 Capsule(s) PO QD No Start D ate Active Co Q-10 oral RxNorm: 37537 oral No Start Date Active metoprolol tartrate 25 mg Tab RxNorm: 762676 1/2 Tablet(s) PO QD No Start Date 12/27/2010 Inactive Nasonex 50 mcg/actuation [place] RxNorm: 1847142 2 [place] NASAL No Sta rt Date 07/06/2017 Inactive Vitamin B12 1000mcg Tablet RxNorm: 1 Tablet(s) PO QD No Start Date 11/12/2014 Inactive amlodipine 5 mg Tab RxNorm: 180395 1 Tablet(s) PO QD No Start Date Inactive simvastatin 40 mg tablet RxNorm: 866153 1 Tablet(s) PO QD No Start Date 06/12/2018 Inactive omeprazole 20 mg capsule,delayed release RxNorm: 209606 1 Capsu le(s) PO BID No Start Date 08/08/2012 Inactive omeprazole 40 mg capsule,delayed release RxNorm: 658920 1 Capsu le(s) PO QD No Start Date 06/12/2018 Inactive Nexium 40 mg Cap RxNorm: 446140 1 Capsule(s) PO QD No Start Date 01/05 Inactive Stool Softener 100 mg Tab RxNorm: 4707271 2 Tablet(s) PO BID No Sta rt Date 03/30/2011 Inactive Calcium with Vitamin D 600 mg (1,500 mg)-400 unit Tab RxNorm : 653975 1 Tablet(s) PO QD No Start Date 11/12/2014 Inactive iron 325 mg (65 mg iron) Tab RxNorm: 622747 1 Tablet(s) PO QD No St art Date 11/12/2014 Inactive Flonase 50 mcg/actuation Nasal [place] RxNorm: 117752 2 [place] DEMOND AL BID No Start Date 10/16/2013 Inactive fluticasone 50 mcg/actuation nasal spray,suspension RxNorm: 6698868 2 [place] NASAL QD to each nostril No Start Date 07/06/2017 Inactive Nasonex 50 mcg/actuation [place] RxNorm: 4179391 2 [place] NASAL QD No Start Date 07/06/2017 Inactive hydralazine 50 mg tablet RxNorm: 406911 1 Tablet(s) PO as needed for BP over 160/90 No Start Date 11/21/2017 Inactive Vimovo 500 mg-20 mg 12 hr Tab RxNorm: 790267 1 Tablet(s) PO BID No Start Date 02/10/2011 Inactive Tylenol PM 25 mg-500 mg/15 mL Oral Soln RxNorm: 1648334 1 PO QPM No Start Date 11/12/2014 Inactive Iron (Ferrous Sulfate) Oral RxNorm: Oral No Start Date 03/30/19 12 Inactive Reglan 10 mg Tab RxNorm: 973955 1 Tablet(s) PO TID before meals No Start Date 02/10/2011 Inactive Xanax 1 mg Tab RxNorm: 911907 1/2 Tablet(s) PO QD No Start Date 11/21 Inactive amlodipine 10 mg tablet RxNorm: 868537 1 Tablet(s) PO QD No Start D ate 09/23/2013 Inactive Iron (dried) Oral RxNorm: Oral No Start Date 03/30/2011 Inactiv e metoprolol tartrate 50 mg tablet RxNorm: 685210 1 Tablet(s) PO BID No Start Date 02/13/2018 Inactive Xanax 0.25 mg tablet RxNorm: 667109 1 Tablet(s) PO BID No Start Date 01/02/2018 Inactive lancets RxNorm: Miscellaneous check blood sugar at least once daily No Start Date 04/03/2012 Inactive simvastatin 40 mg Tab RxNorm: 869870 1 Tablet(s) PO QD No Start Date 02/24/2010 Inactive isosorbide mononitrate ER 30 mg tablet,extended release 24 h r RxNorm: 476365 1 Tablet(s) PO QHS No Start Date 08/13/2018 Inactive amlodipine 2.5 mg tablet RxNorm: 955410 1 Tablet(s) PO QD No Start Date 09/23/2013 Inactive isosorbide mononitrate ER 30 mg tablet,extended release 24 h r RxNorm: 527935 1 Tablet(s) PO QHS No Start Date 03/29/2019 Inactive sucralfate 1 gram tablet RxNorm: 095171 1 Tablet(s) PO QID No Start Date 05/09/2018 Inactive Fish Oil Oral RxNorm: Oral No Start Date 03/31/2011 Inactive Multiple Vitamin Oral RxNorm: Oral No Start Date 03/31/2011 Franny ctive metoprolol tartrate 25 mg tablet RxNorm: 276175 1/2 Tablet(s) P O QD No Start Date 06/13/2016 Inactive metoprolol tartrate 50 mg tablet RxNorm: 853698 1/2 Tablet(s) P O BID No Start Date 05/09/2018 Inactive Flonase Allergy Relief 50 mcg/actuation nasal spray,suspensi on RxNorm: 9640410 2 [place] NASAL QHS No Start Date 11/06/2018 Inactive Medication Administered No Medication Administered data Immunizations Vaccine Codes Date Status Influenza CVX: 135 12/26/2018 Complete Influenza CVX: 135 12/26/2018 Complete Influenza CVX: 135 11/22/2017 Complete Influenza CVX: 135 12/10/2016 Complete Influenza CVX: 135 12/12/2015 Complete Influenza CVX: 135 12/20/2014 Influenza CVX: 141 11/27/2012 Influenza (Adult) CVX: 141 12/10/2009 Results Observation Observation Code Item Item Code Result Date S [facility] Location COMPLETE BLOOD COUNT [id number] WBC 7.1 10e9/L 03/13/19 20 Unknown COMPLETE BLOOD COUNT [id number] RBC 4.16 10e12/L 2019 Unknown COMPLETE BLOOD COUNT [id number] HEMOGLOBIN 12.4 g/dL 03/13/19 20 Unknown COMPLETE BLOOD COUNT [id number] HEMATOCRIT 39.3 % 03/13/19 20 Unknown COMPLETE BLOOD COUNT [id number] MCV 94.5 fL 0 Unknown COMPLETE BLOOD COUNT [id number] MCH 29.8 pg 0 Unknown COMPLETE BLOOD COUNT [id number] MCHC 31.6 g/dL 0 Unknown COMPLETE BLOOD COUNT [id number] PLATELET COUNT 161 10e9/L 09/2019 Unknown COMPLETE BLOOD COUNT [id number] Mean Plt Volume 10.8 fL 09/2019 Unknown COMPLETE BLOOD COUNT [id number] Neut Auto 38.7 % 0 Unknown COMPLETE BLOOD COUNT [id number] Lymph Auto 48.0 % 03/13/19 20 Unknown COMPLETE BLOOD COUNT [id number] [place] Auto 9.5 % 0 Unknown COMPLETE BLOOD COUNT [id number] RDW 13.5 % 0 Unknown COMPLETE BLOOD COUNT [id number] Eos Auto 3.2 % 0 Unknown COMPLETE BLOOD COUNT [id number] Baso Auto 0.6 % 0 Unknown COMPLETE BLOOD COUNT [id number] Neutrophil Abs 2.75 10e9/L Unknown COMPLETE BLOOD COUNT [id number] Lymphocyte Abs 3.41 10e9/L Unknown COMPLETE BLOOD COUNT [id number] Monocyte Abs 0.67 10e9/L 09/2019 Unknown COMPLETE BLOOD COUNT [id number] Eosinophil Abs 0.23 10e9/L Unknown COMPLETE BLOOD COUNT [id number] RDW-SD 44.7 fL 0 Unknown COMPLETE BLOOD COUNT [id number] Basophil Abs 0.04 10e9/L 09/2019 Unknown THYROID STIMULATING HORMONE 77164 TSH 1.677 uIU/mL 03/13/2019 Unknown COMPREHENSIVE METABOLIC 65095 AST 19 U/L 2019 Unknown COMPREHENSIVE METABOLIC 67157 ALT 12 U/L 2019 Unknown COMPREHENSIVE METABOLIC 65720 BUN 17 mg/dL 2019 Unknown COMPREHENSIVE METABOLIC 13795 ALBUMIN 4.2 g/dL 2019 Unknown COMPREHENSIVE METABOLIC 14944 CHLORIDE 103 mmol/L 03/13 Unknown COMPREHENSIVE METABOLIC 12198 Bili Total 0.2 mg/dL 03/13 Unknown COMPREHENSIVE METABOLIC 44301 ALK PHOS 61 U/L 2019 Unknown COMPREHENSIVE METABOLIC 22510 SODIUM 140 mmol/L 03/13 Unknown COMPREHENSIVE METABOLIC 16366 CREATININE 0.95 mg/dL 09/2019 Unknown COMPREHENSIVE METABOLIC 81809 CALCIUM 9.4 mg/dL 2019 Unknown COMPREHENSIVE METABOLIC 70750 POTASSIUM 4.2 mmol/L 03/13 Unknown COMPREHENSIVE METABOLIC 53508 Total Protein 6.5 g/dL Unknown COMPREHENSIVE METABOLIC 02966 Glucose 103 mg/dL 2019 Unknown COMPREHENSIVE METABOLIC 93069 Bicarbonate 26 mmol/L 09/2019 Unknown COMPREHENSIVE METABOLIC 17517 AGAP 11 mmol/L 2019 Unknown GFR CALC [id number] GFR Non Afr Amr 57 mL/min 03/13/2019 Unk nown GFR CALC [id number] GFR Afr Amr >60 mL/min 03/13/2019 Unknow n GFR CALC 6903108 GFR Non Afr Amr 52 mL/min 12/15/2018 Unk nown GFR CALC 5937906 GFR Afr Amr >60 mL/min 12/15/2018 Unknow n COMPREHENSIVE METABOLIC 21638 AST 17 U/L 2018 Unknown COMPREHENSIVE METABOLIC 09235 ALT 11 U/L 2018 Unknown COMPREHENSIVE METABOLIC 27760 BUN 17 mg/dL 2018 Unknown COMPREHENSIVE METABOLIC 27750 ALBUMIN 3.9 g/dL 2018 Unknown COMPREHENSIVE METABOLIC 66505 CHLORIDE 108 mmol/L 12/15 Unknown COMPREHENSIVE METABOLIC 31235 Bili Total 0.5 mg/dL 12/15 Unknown COMPREHENSIVE METABOLIC 37746 ALK PHOS 72 U/L 2018 Unknown COMPREHENSIVE METABOLIC 97305 SODIUM 142 mmol/L 12/15 Unknown COMPREHENSIVE METABOLIC 85150 CREATININE 1.02 mg/dL 12/05 Unknown COMPREHENSIVE METABOLIC 02514 CALCIUM 9.3 mg/dL 2018 Unknown COMPREHENSIVE METABOLIC 93426 POTASSIUM 4.0 mmol/L 12/15 Unknown COMPREHENSIVE METABOLIC 41354 Total Protein 6.2 g/dL Unknown COMPREHENSIVE METABOLIC 55989 Glucose 93 mg/dL 2018 Unknown COMPREHENSIVE METABOLIC 32734 Bicarbonate 27 mmol/L 12/05 Unknown COMPREHENSIVE METABOLIC 75238 AGAP 7 mmol/L 2018 Unknown GFR CALC [id number] GFR Non Afr Amr 48 mL/min 08/14/2018 Unk nown GFR CALC 5461012 GFR Afr Amr 59 mL/min 08/14/2018 Unknown THYROID STIMULATING HORMONE 06880 TSH 1.936 uIU/mL 08/14/2018 Unknown COMPREHENSIVE METABOLIC 98712 AST 18 U/L 2018 Unknown COMPREHENSIVE METABOLIC 43949 ALT 11 U/L 2018 Unknown COMPREHENSIVE METABOLIC 90883 BUN 18 mg/dL 2018 Unknown COMPREHENSIVE METABOLIC 28238 ALBUMIN 4.2 g/dL 2018 Unknown COMPREHENSIVE METABOLIC 49008 CHLORIDE 109 mmol/L 08/14 Unknown COMPREHENSIVE METABOLIC 65953 Bili Total 0.4 mg/dL 08/14 Unknown COMPREHENSIVE METABOLIC 11528 ALK PHOS 64 U/L 2018 Unknown COMPREHENSIVE METABOLIC 83169 SODIUM 142 mmol/L 08/14 Unknown COMPREHENSIVE METABOLIC 91901 CREATININE 1.09 mg/dL 08/05 Unknown COMPREHENSIVE METABOLIC 04600 CALCIUM 9.3 mg/dL 2018 Unknown COMPREHENSIVE METABOLIC 17464 POTASSIUM 4.7 mmol/L 08/14 Unknown COMPREHENSIVE METABOLIC 30323 Total Protein 6.3 g/dL Unknown COMPREHENSIVE METABOLIC 17087 Glucose 84 mg/dL 2018 Unknown COMPREHENSIVE METABOLIC 81840 Bicarbonate 25 mmol/L 08/05 Unknown COMPREHENSIVE METABOLIC 11491 AGAP 8 mmol/L 2018 Unknown COMPLETE BLOOD COUNT [id number] WBC 7.8 10e9/L 08/15/19 19 Unknown COMPLETE BLOOD COUNT [id number] RBC 4.04 10e12/L 2018 Unknown COMPLETE BLOOD COUNT [id number] HEMOGLOBIN 12.2 g/dL 08/15/19 19 Unknown COMPLETE BLOOD COUNT 7233527 HEMATOCRIT 38.6 % 08/15/19 19 Unknown COMPLETE BLOOD COUNT [id number] MCV 95.5 fL 9 Unknown COMPLETE BLOOD COUNT [id number] MCH 30.2 pg 9 Unknown COMPLETE BLOOD COUNT 2158820 MCHC 31.6 g/dL 9 Unknown COMPLETE BLOOD COUNT 9462737 PLATELET COUNT 215 10e9/L 12/2018 Unknown COMPLETE BLOOD COUNT 8665069 Mean Plt Volume 11.2 fL 12/2018 Unknown COMPLETE BLOOD COUNT 5662056 Neut Auto 45.7 % 9 Unknown COMPLETE BLOOD COUNT 0141113 Lymph Auto 42.1 % 08/15/19 19 Unknown COMPLETE BLOOD COUNT 0940160 Forest Auto 9.2 % 9 Unknown COMPLETE BLOOD COUNT 2386284 RDW 13.4 % 9 Unknown COMPLETE BLOOD COUNT 0662701 Eos Auto 2.7 % 9 Unknown COMPLETE BLOOD COUNT 4288728 Baso Auto 0.3 % 9 Unknown COMPLETE BLOOD COUNT 1389584 Neutrophil Abs 3.56 10e9/L Unknown COMPLETE BLOOD COUNT 3537704 Lymphocyte Abs 3.28 10e9/L Unknown COMPLETE BLOOD COUNT [id number] Monocyte Abs 0.72 10e9/L 08/05 Unknown COMPLETE BLOOD COUNT 4087061 Eosinophil Abs 0.21 10e9/L Unknown COMPLETE BLOOD COUNT [id number] RDW-SD 44.9 fL 9 Unknown COMPLETE BLOOD COUNT [id number] Basophil Abs 0.02 10e9/L 08/05 Unknown COMPLETE BLOOD COUNT [id number] WBC 5.2 10e9/L 12/01/19 18 Unknown COMPLETE BLOOD COUNT [id number] RBC 4.21 10e12/L 2017 Unknown COMPLETE BLOOD COUNT [id number] HEMOGLOBIN 12.8 g/dL 12/01/19 18 Unknown COMPLETE BLOOD COUNT 5907108 HEMATOCRIT 39.0 % 12/01/19 18 Unknown COMPLETE BLOOD COUNT [id number] MCV 92.6 fL 8 Unknown COMPLETE BLOOD COUNT 6309936 MCH 30.4 pg 8 Unknown COMPLETE BLOOD COUNT 5690789 MCHC 32.8 g/dL 8 Unknown COMPLETE BLOOD COUNT 4073488 PLATELET COUNT 202 10e9/L Unknown COMPLETE BLOOD COUNT 0808718 Mean Plt Volume 10.7 fL Unknown COMPLETE BLOOD COUNT 9948025 Neut Auto 40.9 % 8 Unknown COMPLETE BLOOD COUNT 6369917 Lymph Auto 46.3 % 12/01/19 18 Unknown COMPLETE BLOOD COUNT 1093131 Forest Auto 9.3 % 8 Unknown COMPLETE BLOOD COUNT 4241382 RDW 13.7 % 8 Unknown COMPLETE BLOOD COUNT 2281098 Eos Auto 2.9 % 8 Unknown COMPLETE BLOOD COUNT 7812625 Baso Auto 0.6 % 8 Unknown COMPLETE BLOOD COUNT 1121590 Neutrophil Abs 2.13 10e9/L Unknown COMPLETE BLOOD COUNT [id number] Lymphocyte Abs 2.41 10e9/L Unknown COMPLETE BLOOD COUNT 8594149 Monocyte Abs 0.48 10e9/L 11/06 Unknown COMPLETE BLOOD COUNT 8684819 Eosinophil Abs 0.15 10e9/L Unknown COMPLETE BLOOD COUNT 5550075 RDW-SD 45.2 fL 8 Unknown COMPLETE BLOOD COUNT [id number] Basophil Abs 0.03 10e9/L 11/06 [place] [address] Glucose 118 mg/dL 11/30 [place] [address] CREATININE 1.01 mg/dL [place] [address] BUN 14 mg/dL 11/30 [place] [address] SODIUM 141 mmol/L 11/06 [place] [address] POTASSIUM 4.0 mmol/L 11/06 [place] [address] CHLORIDE 108 mmol/L 11/06 [place] [address] Bicarbonate 25 mmol/L [place] [address] AGAP 8 mmol/L 11/30 [place] [address] CALCIUM 9.6 mg/dL 11/30 Unknown FREE T4 01281 T4 Free 1.23 ng/dL 11/30/2017 Unknown GFR CALC 0453827 GFR Non Afr Amr 53 mL/min 11/30/2017 Unk nown GFR CALC 6891164 GFR Afr Amr >60 mL/min 11/30/2017 Unknow n THYROID STIMULATING HORMONE 66861 TSH 2.124 uIU/mL 11/30/2017 Unknown LIPID GROUP 53735 Cholesterol 152 mg/dL 09/28/2017 Unkno wn LIPID GROUP 10895 Triglyceride 151 mg/dL 09/28/2017 Unkn own LIPID GROUP 18598 HDL CHOLESTEROL 47 mg/dL 09/28/2017 U nknown LIPID GROUP 80461 Chol/HDL Ratio 3.23 ratio 09/28/2017 U nknown LIPID GROUP 88487 NON-HDL Chol 105 mg/dL 09/28/2017 Unkn own LIPID GROUP 29374 LDL Cholesterol 75 mg/dL 09/28/2017 U nknown ASSAY OF TROPONIN QUANT 64917 Troponin-I <0.30 ng/mL Unknown COMPREHENSIVE METABOLIC 90606 AST 20 U/L 2017 Unknown COMPREHENSIVE METABOLIC 14910 ALT 14 U/L 2017 Unknown COMPREHENSIVE METABOLIC 61820 BUN 19 mg/dL 2017 Unknown COMPREHENSIVE METABOLIC 82955 ALBUMIN 4.2 g/dL 2017 Unknown COMPREHENSIVE METABOLIC 12958 CHLORIDE 102 mmol/L 09/27 Unknown COMPREHENSIVE METABOLIC 77214 Bili Total 0.4 mg/dL 09/27 Unknown COMPREHENSIVE METABOLIC 89769 ALK PHOS 66 U/L 2017 Unknown COMPREHENSIVE METABOLIC 85960 SODIUM 135 mmol/L 09/27 Unknown COMPREHENSIVE METABOLIC 73396 CREATININE 1.01 mg/dL 09/05 Unknown COMPREHENSIVE METABOLIC 62256 CALCIUM 9.3 mg/dL 2017 Unknown COMPREHENSIVE METABOLIC 44986 POTASSIUM 4.8 mmol/L 09/27 Unknown COMPREHENSIVE METABOLIC 75560 Total Protein 7.0 g/dL Unknown COMPREHENSIVE METABOLIC 77969 Glucose 91 mg/dL 2017 Unknown COMPREHENSIVE METABOLIC 33245 Bicarbonate 23 mmol/L 09/05 Unknown COMPREHENSIVE METABOLIC 46050 AGAP 10 mmol/L 2017 Unknown COMPLETE BLOOD COUNT 6316647 WBC 7.5 10e9/L 09/28/19 18 Unknown COMPLETE BLOOD COUNT [id number] RBC 4.13 10e12/L 2017 Unknown COMPLETE BLOOD COUNT 3482530 HEMOGLOBIN 12.6 g/dL 09/28/19 18 Unknown COMPLETE BLOOD COUNT 2355232 HEMATOCRIT 38.4 % 09/28/19 18 Unknown COMPLETE BLOOD COUNT 6646843 MCV 93.0 fL 8 Unknown COMPLETE BLOOD COUNT 9059260 MCH 30.5 pg 8 Unknown COMPLETE BLOOD COUNT 4436642 MCHC 32.8 g/dL 8 Unknown COMPLETE BLOOD COUNT 1555455 PLATELET COUNT 204 10e9/L Unknown COMPLETE BLOOD COUNT 5047335 Mean Plt Volume 10.9 fL Unknown COMPLETE BLOOD COUNT 2644317 Neut Auto 43.1 % 8 Unknown COMPLETE BLOOD COUNT 9895096 Lymph Auto 45.0 % 09/28/19 18 Unknown COMPLETE BLOOD COUNT 0221272 Forest Auto 9.2 % 8 Unknown COMPLETE BLOOD COUNT 9251356 RDW 13.4 % 8 Unknown COMPLETE BLOOD COUNT 5747394 Eos Auto 2.3 % 8 Unknown COMPLETE BLOOD COUNT 8451310 Baso Auto 0.4 % 8 Unknown COMPLETE BLOOD COUNT 7081194 Neutrophil Abs 3.23 10e9/L Unknown COMPLETE BLOOD COUNT 0375984 Lymphocyte Abs 3.38 10e9/L Unknown COMPLETE BLOOD COUNT 2340112 Monocyte Abs 0.69 10e9/L 09/05 Unknown COMPLETE BLOOD COUNT 6578773 Eosinophil Abs 0.17 10e9/L Unknown COMPLETE BLOOD COUNT 2270924 RDW-SD 44.4 fL 8 Unknown COMPLETE BLOOD COUNT 5779514 Basophil Abs 0.03 10e9/L 09/05 Unknown GFR CALC 9327127 GFR Non Afr Amr 53 mL/min 09/27/2017 Unk nown GFR CALC 1800889 GFR Afr Amr >60 mL/min 09/27/2017 Unknow n GLYCOSYLATED HEMOGLOBIN TEST 07589 Hgb A1c 90667-9 5.4 % 0 09/27/2017 Unknown MEAN GLUC 6679997 Calc Mean Gluc 108 mg/dL 09/27/2017 Unkn own MEAN GLUC 6437112 Calc Mean Gluc 114 mg/dL 11/01/2016 Unkn own LIPID GROUP 83931 Cholesterol 146 mg/dL 11/01/2016 Unkno wn LIPID GROUP 74227 Triglyceride 119 mg/dL 11/01/2016 Unkn own LIPID GROUP 40640 HDL CHOLESTEROL 47 mg/dL 11/01/2016 U nknown LIPID GROUP 83469 Chol/HDL Ratio 3.11 ratio 11/01/2016 U nknown LIPID GROUP 08730 NON-HDL Chol 99 mg/dL 11/01/2016 Unkn own LIPID GROUP 57353 LDL Cholesterol 75 mg/dL 11/01/2016 U nknown GLYCOSYLATED HEMOGLOBIN TEST 86475 Hgb A1c 29084-4 5.6 % 0 11/01/2016 Unknown COMPREHENSIVE METABOLIC 61837 AST 22 U/L 2016 Unknown COMPREHENSIVE METABOLIC 22561 ALT 12 U/L 2016 Unknown COMPREHENSIVE METABOLIC 78880 BUN 17 mg/dL 2016 Unknown COMPREHENSIVE METABOLIC 57223 ALBUMIN 4.0 g/dL 2016 Unknown COMPREHENSIVE METABOLIC 47412 CHLORIDE 110 mmol/L 11/01 Unknown COMPREHENSIVE METABOLIC 67247 Bili Total 0.4 mg/dL 11/01 Unknown COMPREHENSIVE METABOLIC 80089 ALK PHOS 63 U/L 2016 Unknown COMPREHENSIVE METABOLIC 59686 SODIUM 140 mmol/L 11/01 Unknown COMPREHENSIVE METABOLIC 37800 CREATININE 1.05 mg/dL 10/06 Unknown COMPREHENSIVE METABOLIC 15884 CALCIUM 9.2 mg/dL 2016 Unknown COMPREHENSIVE METABOLIC 06118 POTASSIUM 4.2 mmol/L 11/01 Unknown COMPREHENSIVE METABOLIC 91481 Total Protein 6.2 g/dL Unknown COMPREHENSIVE METABOLIC 70435 Glucose 87 mg/dL 2016 Unknown COMPREHENSIVE METABOLIC 71052 Bicarbonate 24 mmol/L 10/06 Unknown COMPREHENSIVE METABOLIC 07993 AGAP 6 mmol/L 2016 Unknown GFR CALC 5380008 GFR Non Afr Amr 51 mL/min 11/01/2016 Unk nown GFR CALC 9420566 GFR Afr Amr >60 mL/min 11/01/2016 Unknow n COMPLETE BLOOD COUNT 9243282 WBC 6.7 10e9/L 11/02/19 17 Unknown COMPLETE BLOOD COUNT 1590175 RBC 4.04 10e12/L 2016 Unknown COMPLETE BLOOD COUNT 6793869 HEMOGLOBIN 12.1 g/dL 11/02/19 17 Unknown COMPLETE BLOOD COUNT 5057805 HEMATOCRIT 38.0 % 11/02/19 17 Unknown COMPLETE BLOOD COUNT 0266872 MCV 94.1 fL 7 Unknown COMPLETE BLOOD COUNT 2878375 MCH 30.0 pg 7 Unknown COMPLETE BLOOD COUNT 0154450 MCHC 31.8 g/dL 7 Unknown COMPLETE BLOOD COUNT 8253985 PLATELET COUNT 206 10e9/L Unknown COMPLETE BLOOD COUNT 7862234 Mean Plt Volume 11.3 fL Unknown COMPLETE BLOOD COUNT 3636843 Neut Auto 35.8 % 7 Unknown COMPLETE BLOOD COUNT 0612677 Lymph Auto 51.6 % 11/02/19 17 Unknown COMPLETE BLOOD COUNT 4247936 Forest Auto 8.8 % 7 Unknown COMPLETE BLOOD COUNT 2402767 RDW 13.5 % 7 Unknown COMPLETE BLOOD COUNT 5238690 Eos Auto 3.4 % 7 Unknown COMPLETE BLOOD COUNT 8718112 Baso Auto 0.4 % 7 Unknown COMPLETE BLOOD COUNT 0102594 Neutrophil Abs 2.40 10e9/L Unknown COMPLETE BLOOD COUNT 5996420 Lymphocyte Abs 3.46 10e9/L Unknown COMPLETE BLOOD COUNT 3500682 Monocyte Abs 0.59 10e9/L 10/06 Unknown COMPLETE BLOOD COUNT 3535757 Eosinophil Abs 0.23 10e9/L Unknown COMPLETE BLOOD COUNT 7956481 Basophil Abs 0.03 10e9/L 10/06 Unknown COMPLETE BLOOD COUNT 8096091 RDW-SD 45.3 fL 7 Unknown THYROID STIMULATING HORMONE 69482 TSH 1.981 uIU/mL 11/01/2016 Unknown COMPLETE BLOOD COUNT 7567308 WBC 6.0 10e9/L 05/14/19 17 Unknown COMPLETE BLOOD COUNT 2225778 RBC 4.29 10e12/L 2016 Unknown COMPLETE BLOOD COUNT 3209740 HEMOGLOBIN 12.9 g/dL 05/14/19 17 Unknown COMPLETE BLOOD COUNT 9456636 HEMATOCRIT 38.4 % 05/14/19 17 Unknown COMPLETE BLOOD COUNT 3654484 MCV 89.5 fL 7 Unknown COMPLETE BLOOD COUNT 1301035 MCH 30.1 pg 7 Unknown COMPLETE BLOOD COUNT 4125676 MCHC 33.6 g/dL 7 Unknown COMPLETE BLOOD COUNT 9545086 PLATELET COUNT 181 10e9/L 11/2016 Unknown COMPLETE BLOOD COUNT 7714144 Mean Plt Volume 11.7 fL 11/2016 Unknown COMPLETE BLOOD COUNT 8442061 Neut Auto 36.9 % 7 Unknown COMPLETE BLOOD COUNT 4683269 Lymph Auto 50.4 % 05/14/19 17 Unknown COMPLETE BLOOD COUNT 9662224 Forest Auto 9.0 % 7 Unknown COMPLETE BLOOD COUNT 1650976 RDW 13.7 % 7 Unknown COMPLETE BLOOD COUNT 8801374 Eos Auto 3.4 % 7 Unknown COMPLETE BLOOD COUNT 6598501 Baso Auto 0.3 % 7 Unknown COMPLETE BLOOD COUNT 4633641 Neutrophil Abs 2.21 10e9/L Unknown COMPLETE BLOOD COUNT 4795245 Lymphocyte Abs 3.02 10e9/L Unknown COMPLETE BLOOD COUNT 2723576 Monocyte Abs 0.54 10e9/L 11/2016 Unknown COMPLETE BLOOD COUNT 9758570 Eosinophil Abs 0.20 10e9/L Unknown COMPLETE BLOOD COUNT 8293179 RDW-SD 44.0 fL 7 Unknown COMPLETE BLOOD COUNT 0696323 Basophil Abs 0.02 10e9/L 11/2016 Unknown GLYCOSYLATED HEMOGLOBIN TEST 57492 Hgb A1c 88046-6 5.4 % 0 05/13/2016 Unknown THYROID STIMULATING HORMONE 53055 TSH 2.200 uIU/mL 05/13/2016 Unknown GFR CALC 0611106 GFR Afr Amr >60 mL/min 05/13/2016 Unknow n GFR CALC 5121984 GFR Non Afr Amr 50 mL/min 05/13/2016 Unk nown MEAN GLUC 4789707 Calc Mean Gluc 108 mg/dL 05/13/2016 Unkn own COMPREHENSIVE METABOLIC 30253 AST 18 U/L 2016 Unknown COMPREHENSIVE METABOLIC 56346 ALT 10 U/L 2016 Unknown COMPREHENSIVE METABOLIC 87035 BUN 20 mg/dL 2016 Unknown COMPREHENSIVE METABOLIC 70205 ALBUMIN 4.1 g/dL 2016 Unknown COMPREHENSIVE METABOLIC 33723 CHLORIDE 109 mmol/L 05/13 Unknown COMPREHENSIVE METABOLIC 92724 Bili Total 0.6 mg/dL 05/13 Unknown COMPREHENSIVE METABOLIC 70282 ALK PHOS 64 U/L 2016 Unknown COMPREHENSIVE METABOLIC 40788 SODIUM 141 mmol/L 05/13 Unknown COMPREHENSIVE METABOLIC 65008 CREATININE 1.06 mg/dL 11/2016 Unknown COMPREHENSIVE METABOLIC 47038 CALCIUM 9.9 mg/dL 2016 Unknown COMPREHENSIVE METABOLIC 30013 POTASSIUM 4.2 mmol/L 05/13 Unknown COMPREHENSIVE METABOLIC 40583 Total Protein 6.3 g/dL Unknown COMPREHENSIVE METABOLIC 00702 Glucose 99 mg/dL 2016 Unknown COMPREHENSIVE METABOLIC 34306 Bicarbonate 21 mmol/L 11/2016 Unknown COMPREHENSIVE METABOLIC 90517 AGAP 11 mmol/L 2016 Unknown LIPID GROUP 84496 Cholesterol 169 mg/dL 11/25/2015 Unkno wn LIPID GROUP 40355 Triglyceride 165 mg/dL 11/25/2015 Unkn own LIPID GROUP 58718 HDL CHOLESTEROL 43 mg/dL 11/25/2015 U nknown LIPID GROUP 90409 Chol/HDL Ratio 3.93 ratio 11/25/2015 U nknown LIPID GROUP 54114 NON-HDL Chol 126 mg/dL 11/25/2015 Unkn own LIPID GROUP 07647 LDL Cholesterol 93 mg/dL 11/25/2015 U nknown COMPREHENSIVE METABOLIC 28882 AST 18 U/L 2015 Unknown COMPREHENSIVE METABOLIC 63786 ALT 10 U/L 2015 Unknown COMPREHENSIVE METABOLIC 64658 BUN 20 mg/dL 2015 Unknown COMPREHENSIVE METABOLIC 60057 ALBUMIN 3.9 g/dL 2015 Unknown COMPREHENSIVE METABOLIC 62222 CHLORIDE 110 mmol/L 11/24 Unknown COMPREHENSIVE METABOLIC 44071 Bili Total 0.5 mg/dL 11/24 Unknown COMPREHENSIVE METABOLIC 84297 ALK PHOS 72 U/L 2015 Unknown COMPREHENSIVE METABOLIC 23062 SODIUM 141 mmol/L 11/24 Unknown COMPREHENSIVE METABOLIC 20716 CREATININE 1.12 mg/dL 11/06 Unknown COMPREHENSIVE METABOLIC 89460 CALCIUM 9.7 mg/dL 2015 Unknown COMPREHENSIVE METABOLIC 70310 POTASSIUM 4.4 mmol/L 11/24 Unknown COMPREHENSIVE METABOLIC 56218 Total Protein 6.2 g/dL Unknown COMPREHENSIVE METABOLIC 75668 Glucose 90 mg/dL 2015 Unknown COMPREHENSIVE METABOLIC 24874 Bicarbonate 23 mmol/L 11/06 Unknown COMPREHENSIVE METABOLIC 56950 AGAP 8 mmol/L 2015 Unknown GFR CALC 9548668 GFR Non Afr Amr 47 mL/min 11/25/2015 Unk nown GFR CALC 8168683 GFR Afr Amr 57 mL/min 11/25/2015 Unknown GLYCOSYLATED HEMOGLOBIN TEST 64362 Hgb A1c 45662-9 5.5 % 0 11/25/2015 Unknown THYROID STIMULATING HORMONE 62089 TSH 2.537 uIU/mL 11/25/2015 Unknown FREE T4 62354 T4 Free 1.36 ng/dL 11/25/2015 Unknown COMPLETE BLOOD COUNT 6391979 WBC 6.8 10e9/L 11/25/19 16 Unknown COMPLETE BLOOD COUNT 4984879 RBC 4.20 10e12/L 2015 Unknown COMPLETE BLOOD COUNT 1266587 HEMOGLOBIN 12.5 g/dL 11/25/19 16 Unknown COMPLETE BLOOD COUNT 1465556 HEMATOCRIT 38.0 % 11/25/19 16 Unknown COMPLETE BLOOD COUNT 9726221 MCV 90.5 fL 6 Unknown COMPLETE BLOOD COUNT 3396509 MCH 29.8 pg 6 Unknown COMPLETE BLOOD COUNT 2695400 MCHC 32.9 g/dL 6 Unknown COMPLETE BLOOD COUNT 0199013 PLATELET COUNT 197 10e9/L Unknown COMPLETE BLOOD COUNT 4035031 Mean Plt Volume 11.7 fL Unknown COMPLETE BLOOD COUNT 6882549 Neut Auto 41.3 % 6 Unknown COMPLETE BLOOD COUNT 0660743 Lymph Auto 47.1 % 11/25/19 16 Unknown COMPLETE BLOOD COUNT 4513773 Forest Auto 7.8 % 6 Unknown COMPLETE BLOOD COUNT 1491458 RDW 13.8 % 6 Unknown COMPLETE BLOOD COUNT 6357084 Eos Auto 3.4 % 6 Unknown COMPLETE BLOOD COUNT 6744236 Baso Auto 0.4 % 6 Unknown COMPLETE BLOOD COUNT 7290342 Neutrophil Abs 2.81 10e9/L Unknown COMPLETE BLOOD COUNT 5009530 Lymphocyte Abs 3.20 10e9/L Unknown COMPLETE BLOOD COUNT 8517831 Monocyte Abs 0.53 10e9/L 11/06 Unknown COMPLETE BLOOD COUNT 9624828 Eosinophil Abs 0.23 10e9/L Unknown COMPLETE BLOOD COUNT 7063919 Basophil Abs 0.03 10e9/L 11/06 Unknown COMPLETE BLOOD COUNT 6968762 RDW-SD 44.4 fL 6 Unknown MEAN GLUC 2091004 Calc Mean Gluc 111 mg/dL 11/25/2015 [place] [address] Glucose 89 MG/DL 02/19 [place] [address] CREATININE 1.12 MG/DL [place] [address] BUN 20 MG/DL 02/19 [place] [address] SODIUM 139 MMOL/L 02/04 [place] [address] POTASSIUM 4.6 MMOL/L 02/04 [place] [address] CHLORIDE 108 MMOL/L 02/04 [place] [address] BICARB 26 MMOL/L 02/19 [place] [address] ANION GAP 5 MEQ/L 02/19 [place] [address] CALCIUM 10.0 MG/DL 02/04 Unknown GFR CALC 5893594 GFR AA 57.0L ML/MIN 02/19/2015 Unknow n GFR CALC 1122114 GFR NON-AA 47.0L ML/MIN 02/19/2015 Unkno wn THYROID STIMULATING HORMONE 59197 TSH 2.378 uIU/ML 11/14/2014 Unknown COMPLETE BLOOD COUNT 6259437 WBC 6.4 10e9/L 11/15/19 15 Unknown COMPLETE BLOOD COUNT 3541759 RBC 3.99 10e12/L 2014 Unknown COMPLETE BLOOD COUNT 0619194 HGB 11.9 g/dL 5 Unknown COMPLETE BLOOD COUNT 9443789 HCT DET 36.9 % 5 Unknown COMPLETE BLOOD COUNT 4995684 MCV 92.5 fL 5 Unknown COMPLETE BLOOD COUNT 5955565 MCH 29.8 pg 5 Unknown COMPLETE BLOOD COUNT 6396546 MCHC 32.2 g/dL 5 Unknown COMPLETE BLOOD COUNT 3732503 PLT 172 10e9/L 11/15/19 15 Unknown COMPLETE BLOOD COUNT 9772878 MPV 11.7 fL 5 Unknown COMPLETE BLOOD COUNT 9356545 CINTHYA % 40.4 % 5 Unknown COMPLETE BLOOD COUNT 1736844 LY % 48.0 % 5 Unknown COMPLETE BLOOD COUNT 8744284 MON % 8.3 % 5 Unknown COMPLETE BLOOD COUNT 5509270 EOS % 2.8 % 5 Unknown COMPLETE BLOOD COUNT 2025304 BASO % 0.5 % 5 Unknown COMPLETE BLOOD COUNT 1527563 RDW 13.6 % 5 Unknown COMPLETE BLOOD COUNT 7863381 ABS CINTHYA 2.59 10e9/L 015 Unknown COMPLETE BLOOD COUNT 9758094 ABS LYMPH 3.07 10e9/L 015 Unknown COMPLETE BLOOD COUNT 4692985 ABS MONO 0.53 10e9/L 015 Unknown COMPLETE BLOOD COUNT 2674491 ABS EOS 0.18 10e9/L 015 Unknown COMPLETE BLOOD COUNT 7443532 ABS BASO 0.03 10e9/L 015 Unknown COMPLETE BLOOD COUNT 2856521 RDW-SD 44.9 fL 5 Unknown LIPID GROUP 75258 HDL TEST 42 MG/DL 11/14/2014 Unknown LIPID GROUP 53582 TRIG 177 MG/DL 11/14/2014 Unknown LIPID GROUP 78022 TEST LDL 72 MG/DL 11/14/2014 Unknown LIPID GROUP 61530 CHOL 149 MG/DL 11/14/2014 Unknown LIPID GROUP 46694 RCHOL/HDL 3.55 RATIO 11/14/2014 Unknow n LIPID GROUP 27491 NON-HDL CH 107 MG/DL 11/14/2014 Unknow n GLYCOSYLATED HEMOGLOBIN TEST 43508 A1C HPLC 01266-8 5.5 % 0 11/14/2014 Unknown FREE T4 53676 FREE T4 1.39 NG/DL 11/14/2014 Unknown GFR CALC 0112207 GFR AA 55.0L ML/MIN 11/14/2014 Unknow n GFR CALC 0893744 GFR NON-AA 46.0L ML/MIN 11/14/2014 Unkno wn COMPREHENSIVE METABOLIC 14075 AST 17 U/L 2014 Unknown COMPREHENSIVE METABOLIC 01336 ALT 10 IU/L 2014 Unknown COMPREHENSIVE METABOLIC 00230 BUN 20 MG/DL 2014 Unknown COMPREHENSIVE METABOLIC 58010 ALBUMIN 3.9 GM/DL 2014 Unknown COMPREHENSIVE METABOLIC 60542 CHLORIDE 111 MMOL/L 11/14 Unknown COMPREHENSIVE METABOLIC 67984 BILI TOT 0.4 MG/DL 2014 Unknown COMPREHENSIVE METABOLIC 89462 ALK PHOS 70 U/L 2014 Unknown COMPREHENSIVE METABOLIC 03859 SODIUM 142 MMOL/L 11/14 Unknown COMPREHENSIVE METABOLIC 10033 CREATININE 1.16 MG/DL 11/05 Unknown COMPREHENSIVE METABOLIC 42179 CALCIUM 9.4 MG/DL 2014 Unknown COMPREHENSIVE METABOLIC 20302 POTASSIUM 4.6 MMOL/L 11/14 Unknown COMPREHENSIVE METABOLIC 56052 PROT TOT 6.2 GM/DL 2014 Unknown COMPREHENSIVE METABOLIC 91713 Glucose 90 MG/DL 2014 Unknown COMPREHENSIVE METABOLIC 28691 BICARB 24 MMOL/L 2014 Unknown COMPREHENSIVE METABOLIC 66353 ANION GAP 7 MEQ/L 2014 Unknown THYROID STIMULATING HORMONE 53945 TSH 2.427 uIU/ML 05/10/2014 Unknown LIPID GROUP 34035 HDL TEST 47 MG/DL 05/10/2014 Unknown LIPID GROUP 00550 TRIG 145 MG/DL 05/10/2014 Unknown LIPID GROUP 98885 TEST LDL 73 MG/DL 05/10/2014 Unknown LIPID GROUP 70397 CHOL 149 MG/DL 05/10/2014 Unknown LIPID GROUP 24334 RCHOL/HDL 3.17 RATIO 05/10/2014 Unknow n LIPID GROUP 38058 NON-HDL CH 102 MG/DL 05/10/2014 Unknow n COMPREHENSIVE METABOLIC 71765 AST 17 U/L 2014 Unknown COMPREHENSIVE METABOLIC 05108 ALT 9 IU/L 2014 Unknown COMPREHENSIVE METABOLIC 20279 BUN 19 MG/DL 2014 Unknown COMPREHENSIVE METABOLIC 09086 ALBUMIN 4.3 GM/DL 2014 Unknown COMPREHENSIVE METABOLIC 16606 CHLORIDE 108 MMOL/L 05/10 Unknown COMPREHENSIVE METABOLIC 56913 BILI TOT 0.5 MG/DL 2014 Unknown COMPREHENSIVE METABOLIC 48896 ALK PHOS 68 U/L 2014 Unknown COMPREHENSIVE METABOLIC 03594 SODIUM 140 MMOL/L 05/10 Unknown COMPREHENSIVE METABOLIC 29587 CREATININE 1.08 MG/DL 08/2014 Unknown COMPREHENSIVE METABOLIC 82317 CALCIUM 9.9 MG/DL 2014 Unknown COMPREHENSIVE METABOLIC 81698 POTASSIUM 4.3 MMOL/L 05/10 Unknown COMPREHENSIVE METABOLIC 08919 PROT TOT 7.2 GM/DL 2014 Unknown COMPREHENSIVE METABOLIC 54914 Glucose 94 MG/DL 2014 Unknown COMPREHENSIVE METABOLIC 38184 BICARB 26 MMOL/L 2014 Unknown COMPREHENSIVE METABOLIC 20424 ANION GAP 6 MEQ/L 2014 Unknown GFR CALC 7630611 GFR AA 60.0L ML/MIN 05/10/2014 Unknow n GFR CALC 2873168 GFR NON-AA 49.0L ML/MIN 05/10/2014 Unkno wn GLYCOSYLATED HEMOGLOBIN TEST 36451 A1C HPLC 35193-3 5.6 % 0 05/10/2014 Unknown COMPLETE BLOOD COUNT [id number] WBC 7.2 10e9/L 05/11/19 15 Unknown COMPLETE BLOOD COUNT [id number] RBC 4.28 10e12/L 2014 Unknown COMPLETE BLOOD COUNT 9886344 HGB 12.8 g/dL 5 Unknown COMPLETE BLOOD COUNT 0002923 HCT DET 39.3 % 5 Unknown COMPLETE BLOOD COUNT 7641593 MCV 91.8 fL 5 Unknown COMPLETE BLOOD COUNT 2713899 MCH 29.9 pg 5 Unknown COMPLETE BLOOD COUNT 8566730 MCHC 32.6 g/dL 5 Unknown COMPLETE BLOOD COUNT 1477893 PLT 189 10e9/L 05/11/19 15 Unknown COMPLETE BLOOD COUNT 5765506 MPV 11.2 fL 5 Unknown COMPLETE BLOOD COUNT 2279283 CINTHYA % 38.0 % 5 Unknown COMPLETE BLOOD COUNT 6921644 LY % 51.0 % 5 Unknown COMPLETE BLOOD COUNT 0306067 MON % 7.7 % 5 Unknown COMPLETE BLOOD COUNT 9708842 EOS % 2.9 % 5 Unknown COMPLETE BLOOD COUNT 4280342 BASO % 0.4 % 5 Unknown COMPLETE BLOOD COUNT 4093125 RDW 14.0 % 5 Unknown COMPLETE BLOOD COUNT 4029833 ABS CINTHYA 2.74 10e9/L 015 Unknown COMPLETE BLOOD COUNT 1089777 ABS LYMPH 3.67 10e9/L 015 Unknown COMPLETE BLOOD COUNT 8043100 ABS MONO 0.55 10e9/L 015 Unknown COMPLETE BLOOD COUNT 0138053 ABS EOS 0.21 10e9/L 015 Unknown COMPLETE BLOOD COUNT 9248740 ABS BASO 0.03 10e9/L 015 Unknown COMPLETE BLOOD COUNT 8394965 RDW-SD 46.1 fL 5 Unknown FREE T4 27913 FREE T4 1.14 NG/DL 05/10/2014 Unknown GLYCOSYLATED HEMOGLOBIN TEST 30162 A1C HPLC 28271-4 5.2 % 0 03/29/2013 Unknown FREE T4 36560 FREE T4 1.40 NG/DL 03/28/2013 Unknown GFR CALC [id number] GFR AA >60 ML/MIN 03/28/2013 Unknown GFR CALC 3049650 GFR NON-AA 52.0L ML/MIN 03/28/2013 Unkno wn COMPREHENSIVE METABOLIC 30914 AST 15 U/L 2013 Unknown COMPREHENSIVE METABOLIC 83823 ALT 9 IU/L 2013 Unknown COMPREHENSIVE METABOLIC 91278 BUN 17 MG/DL 2013 Unknown COMPREHENSIVE METABOLIC 98477 ALBUMIN 4.0 GM/DL 2013 Unknown COMPREHENSIVE METABOLIC 48335 CHLORIDE 112 MMOL/L 03/28 Unknown COMPREHENSIVE METABOLIC 96640 BILI TOT 0.5 MG/DL 2013 Unknown COMPREHENSIVE METABOLIC 94922 ALK PHOS 66 U/L 2013 Unknown COMPREHENSIVE METABOLIC 29649 SODIUM 140 MMOL/L 03/28 Unknown COMPREHENSIVE METABOLIC 36870 CREATININE 1.03 MG/DL 03/08 Unknown COMPREHENSIVE METABOLIC 90079 CALCIUM 9.5 MG/DL 2013 Unknown COMPREHENSIVE METABOLIC 55896 POTASSIUM 4.1 MMOL/L 03/28 Unknown COMPREHENSIVE METABOLIC 53046 PROT TOT 6.2 GM/DL 2013 Unknown COMPREHENSIVE METABOLIC 74115 Glucose 102 MG/DL 2013 Unknown COMPREHENSIVE METABOLIC 88456 BICARB 23 MMOL/L 2013 Unknown COMPREHENSIVE METABOLIC 67901 ANION GAP 5 MEQ/L 2013 Unknown THYROID STIMULATING HORMONE 38765 TSH 2.074 uIU/ML 03/28/2013 Unknown VITAMIN B 12 FOLIC ACID 11833|56174 VIT B 12 423 PG/ML 03/08 Unknown VITAMIN B 12 FOLIC ACID 31586|14794 FOLIC ACID 19.7 NG/ML Unknown LIPID GROUP 06416 HDL TEST 40 MG/DL 03/28/2013 Unknown LIPID GROUP 81825 TRIG 145 MG/DL 03/28/2013 Unknown LIPID GROUP 74403 TEST LDL 81 MG/DL 03/28/2013 Unknown LIPID GROUP 44802 CHOL 150 MG/DL 03/28/2013 Unknown LIPID GROUP 05226 RCHOL/HDL 3.75 RATIO 03/28/2013 Unknow n COMPLETE BLOOD COUNT [id number] WBC 6.0 10e9/L 03/28/19 14 Unknown COMPLETE BLOOD COUNT 1876806 RBC 4.26 10e12/L 2013 Unknown COMPLETE BLOOD COUNT 6079318 HGB 12.7 g/dL 4 Unknown COMPLETE BLOOD COUNT 1730838 HCT DET 38.7 % 4 Unknown COMPLETE BLOOD COUNT 2582737 MCV 90.8 fL 4 Unknown COMPLETE BLOOD COUNT 5502783 MCH 29.8 pg 4 Unknown COMPLETE BLOOD COUNT 6101567 MCHC 32.8 g/dL 4 Unknown COMPLETE BLOOD COUNT [id number] PLT 178 10e9/L 03/28/19 14 Unknown COMPLETE BLOOD COUNT [id number] MPV 11.7 fL 4 Unknown COMPLETE BLOOD COUNT [id number] CINTHYA % 30.5 % 4 Unknown COMPLETE BLOOD COUNT 8628146 LY % 55.4 % 4 Unknown COMPLETE BLOOD COUNT 0404397 MON % 9.0 % 4 Unknown COMPLETE BLOOD COUNT 8003125 EOS % 4.4 % 4 Unknown COMPLETE BLOOD COUNT 0273650 BASO % 0.7 % 4 Unknown COMPLETE BLOOD COUNT 7735320 RDW 13.3 % 4 Unknown COMPLETE BLOOD COUNT [id number] ABS CINTHYA 1.83 10e9/L 014 Unknown COMPLETE BLOOD COUNT [id number] ABS LYMPH 3.32 10e9/L 014 Unknown COMPLETE BLOOD COUNT [id number] ABS MONO 0.54 10e9/L 014 Unknown COMPLETE BLOOD COUNT [id number] ABS EOS 0.26 10e9/L 014 Unknown COMPLETE BLOOD COUNT [id number] ABS BASO 0.04 10e9/L 014 Unknown COMPLETE BLOOD COUNT [id number] RDW-SD 43.2 fL 4 Unknown HEMOGLOBIN A1C (GLYCOSYLATED) [id number] A1C HPLC 74842-4 5.5 % 02/24/2012 Unknown COMPLETE BLOOD COUNT 2181985 WBC 6.0 10e9/L 02/23/20 12 Unknown COMPLETE BLOOD COUNT [id number] RBC 4.22 10e12/L 2011 Unknown COMPLETE BLOOD COUNT 7858308 HGB 12.4 g/dL 2 Unknown COMPLETE BLOOD COUNT 9420903 HCT DET 38.2 % 2 Unknown COMPLETE BLOOD COUNT 8863716 MCV 90.5 fL 2 Unknown COMPLETE BLOOD COUNT 3750879 MCH 29.4 pg 2 Unknown COMPLETE BLOOD COUNT 4257461 MCHC 32.5 g/dL 2 Unknown COMPLETE BLOOD COUNT [id number] PLT 187 10e9/L 02/23/20 12 Unknown COMPLETE BLOOD COUNT 4158414 MPV 11.5 fL 2 Unknown COMPLETE BLOOD COUNT [id number] CINTHYA % 36.4 % 2 Unknown COMPLETE BLOOD COUNT 2818671 LY % 51.0 % 2 Unknown COMPLETE BLOOD COUNT 8430480 MON % 8.7 % 2 Unknown COMPLETE BLOOD COUNT 4512147 EOS % 3.2 % 2 Unknown COMPLETE BLOOD COUNT 5075330 BASO % 0.7 % 2 Unknown COMPLETE BLOOD COUNT 1271233 RDW 13.7 % 2 Unknown COMPLETE BLOOD COUNT 7937555 ABS CINTHYA 2.18 10e9/L 012 Unknown COMPLETE BLOOD COUNT 4423736 ABS LYMPH 3.06 10e9/L 012 Unknown COMPLETE BLOOD COUNT 8985494 ABS MONO 0.52 10e9/L 012 Unknown COMPLETE BLOOD COUNT 3690029 ABS EOS 0.19 10e9/L 012 Unknown COMPLETE BLOOD COUNT 1261908 ABS BASO 0.04 10e9/L 012 Unknown COMPLETE BLOOD COUNT 4684628 RDW-SD 44.3 fL 2 Unknown LIPID GROUP 11327 HDL TEST 42 MG/DL 02/23/2012 Unknown LIPID GROUP 90411 TRIG 156 MG/DL 02/23/2012 Unknown LIPID GROUP 07316 TEST LDL 80 MG/DL 02/23/2012 Unknown LIPID GROUP 05790 CHOL 153 MG/DL 02/23/2012 Unknown LIPID GROUP 56135 RCHOL/HDL 3.64 RATIO 02/23/2012 Unknow n FREE T4 27641 FREE T4 1.22 NG/DL 02/23/2012 Unknown COMPREHENSIVE METABOLIC 51308 AST 20 U/L 2011 Unknown COMPREHENSIVE METABOLIC 13020 ALT 11 IU/L 2011 Unknown COMPREHENSIVE METABOLIC 16855 BUN 19 MG/DL 2011 Unknown COMPREHENSIVE METABOLIC 43508 ALBUMIN 4.3 GM/DL 2011 Unknown COMPREHENSIVE METABOLIC 28039 CHLORIDE 109 MMOL/L 02/22 Unknown COMPREHENSIVE METABOLIC 93308 BILI TOT 0.6 MG/DL 2011 Unknown COMPREHENSIVE METABOLIC 52248 ALK PHOS 84 U/L 2011 Unknown COMPREHENSIVE METABOLIC 80300 SODIUM 142 MMOL/L 02/22 Unknown COMPREHENSIVE METABOLIC 16835 CREATININE 1.09 MG/DL 02/04 Unknown COMPREHENSIVE METABOLIC 12076 CALCIUM 9.8 MG/DL 2011 Unknown COMPREHENSIVE METABOLIC 04642 POTASSIUM 4.2 MMOL/L 02/22 Unknown COMPREHENSIVE METABOLIC 48021 PROT TOT 6.4 GM/DL 2011 Unknown COMPREHENSIVE METABOLIC 07789 Glucose 89 MG/DL 2011 Unknown COMPREHENSIVE METABOLIC 00150 BICARB 25 MMOL/L 2011 Unknown COMPREHENSIVE METABOLIC 67723 ANION GAP 8 MEQ/L 2011 Unknown GFR CALC 4169579 GFR AA 60.0L ML/MIN 02/23/2012 Unknow n GFR CALC 4338639 GFR NON-AA 49.0L ML/MIN 02/23/2012 Unkno wn THYROID STIMULATING HORMONE 69052 TSH 2.450 uIU/ML 02/23/2012 Unknown COMPREHENSIVE METABOLIC 64457 AST 22 U/L 2011 Unknown COMPREHENSIVE METABOLIC 96776 ALT 14 IU/L 2011 Unknown COMPREHENSIVE METABOLIC 34442 BUN 21 MG/DL 2011 Unknown COMPREHENSIVE METABOLIC 67302 ALBUMIN 4.3 GM/DL 2011 Unknown COMPREHENSIVE METABOLIC 31498 CHLORIDE 106 MMOL/L 04/01 Unknown COMPREHENSIVE METABOLIC 40226 BILI TOT 0.4 MG/DL 2011 Unknown COMPREHENSIVE METABOLIC 82775 ALK PHOS 80 U/L 2011 Unknown COMPREHENSIVE METABOLIC 25752 SODIUM 141 MMOL/L 04/01 Unknown COMPREHENSIVE METABOLIC 63289 CREATININE 1.13 MG/DL 03/08 Unknown COMPREHENSIVE METABOLIC 22970 CALCIUM 9.4 MG/DL 2011 Unknown COMPREHENSIVE METABOLIC 69141 POTASSIUM 4.3 MMOL/L 04/01 Unknown COMPREHENSIVE METABOLIC 05560 PROT TOT 6.7 GM/DL 2011 Unknown COMPREHENSIVE METABOLIC 44641 Glucose 98 MG/DL 2011 Unknown COMPREHENSIVE METABOLIC 15097 BICARB 25 MMOL/L 2011 Unknown COMPREHENSIVE METABOLIC 12879 ANION GAP 10 MEQ/L 2011 Unknown LIPID GROUP 05768 HDL TEST 44 MG/DL 04/01/2011 Unknown LIPID GROUP 97577 TRIG 164 MG/DL 04/01/2011 Unknown LIPID GROUP 68828 TEST LDL 98 MG/DL 04/01/2011 Unknown LIPID GROUP 31219 CHOL 175 MG/DL 04/01/2011 Unknown LIPID GROUP 72385 RCHOL/HDL 3.98 RATIO 04/01/2011 Unknow n COMPLETE BLOOD COUNT 72075 WBC 6.7 10e9/L 04/01/19 12 Unknown COMPLETE BLOOD COUNT 83462 RBC 4.36 10e12/L 2011 Unknown COMPLETE BLOOD COUNT 28112 HGB 12.9 g/dL 2 Unknown COMPLETE BLOOD COUNT 55273 HCT DET 39.4 % 2 Unknown COMPLETE BLOOD COUNT 10344 MCV 90.4 fL 2 Unknown COMPLETE BLOOD COUNT 23251 MCH 29.6 pg 2 Unknown COMPLETE BLOOD COUNT 61530 MCHC 32.7 g/dL 2 Unknown COMPLETE BLOOD COUNT 45218 PLT 184 10e9/L 04/01/19 12 Unknown COMPLETE BLOOD COUNT 09225 MPV 10.9 fL 2 Unknown COMPLETE BLOOD COUNT 03585 CINTHYA % 41.5 % 2 Unknown COMPLETE BLOOD COUNT 58340 LY % 45.7 % 2 Unknown COMPLETE BLOOD COUNT 55312 MON % 9.4 % 2 Unknown COMPLETE BLOOD COUNT 34703 EOS % 3.0 % 2 Unknown COMPLETE BLOOD COUNT 54536 BASO % 0.4 % 2 Unknown COMPLETE BLOOD COUNT 48903 RDW 13.2 % 2 Unknown COMPLETE BLOOD COUNT 17075 ABS CINTHYA 2.78 10e9/L 012 Unknown COMPLETE BLOOD COUNT 43267 ABS LYMPH 3.06 10e9/L 012 Unknown COMPLETE BLOOD COUNT 89838 ABS MONO 0.63 10e9/L 012 Unknown COMPLETE BLOOD COUNT 74464 ABS EOS 0.20 10e9/L 012 Unknown COMPLETE BLOOD COUNT 57340 ABS BASO 0.03 10e9/L 012 Unknown COMPLETE BLOOD COUNT 24648 RDW-SD 42.3 fL 2 Unknown GFR CALC GFR AA 57.0L ML/MIN 04/01/2011 Unknow n GFR CALC 4979349 GFR NON-AA 47.0L ML/MIN 04/01/2011 Unkno wn THYROID STIMULATING HORMONE 47479 TSH 2.663 uIU/ML 04/01/2011 Unknown FREE T4 48255 FREE T4 1.15 NG/DL 04/01/2011 Unknown THYROID STIMULATING HORMONE 03424 TSH 1.908 uIU/ML 07/06/2010 Unknown COMPLETE BLOOD COUNT 26110 WBC 6.4 10e9/L 07/07/19 11 Unknown COMPLETE BLOOD COUNT 10662 RBC 3.92 10e12/L 2010 Unknown COMPLETE BLOOD COUNT 05253 HGB 11.8 g/dL 1 Unknown COMPLETE BLOOD COUNT 20016 HCT DET 36.0 % 1 Unknown COMPLETE BLOOD COUNT 05429 MCV 91.8 fL 1 Unknown COMPLETE BLOOD COUNT 73103 MCH 30.1 pg 1 Unknown COMPLETE BLOOD COUNT 72275 MCHC 32.8 g/dL 1 Unknown COMPLETE BLOOD COUNT 35656 PLT 176 10e9/L 07/07/19 11 Unknown COMPLETE BLOOD COUNT 81696 MPV 11.4 fL 1 Unknown COMPLETE BLOOD COUNT 24019 CINTHYA % 50.4 % 1 Unknown COMPLETE BLOOD COUNT 35011 LY % 35.5 % 1 Unknown COMPLETE BLOOD COUNT 00894 MON % 10.2 % 1 Unknown COMPLETE BLOOD COUNT 22327 EOS % 3.3 % 1 Unknown COMPLETE BLOOD COUNT 54150 BASO % 0.6 % 1 Unknown COMPLETE BLOOD COUNT 88787 RDW 13.7 % 1 Unknown COMPLETE BLOOD COUNT 74849 ABS CINTHYA 3.23 10e9/L 011 Unknown COMPLETE BLOOD COUNT 94073 ABS LYMPH 2.27 10e9/L 011 Unknown COMPLETE BLOOD COUNT 32031 ABS MONO 0.65 10e9/L 011 Unknown COMPLETE BLOOD COUNT 19680 ABS EOS 0.21 10e9/L 011 Unknown COMPLETE BLOOD COUNT 84841 ABS BASO 0.04 10e9/L 011 Unknown COMPLETE BLOOD COUNT 73935 RDW-SD 45.3 fL 1 Unknown GFR CALC 5903697 GFR AA >60 ML/MIN 07/06/2010 Unknown GFR CALC 1775591 GFR NON-AA 53.0L ML/MIN 07/06/2010 Unkno wn FREE T4 39591 FREE T4 1.20 NG/DL 07/06/2010 Unknown COMPREHENSIVE METABOLIC 49300 AST 17 U/L 2010 Unknown COMPREHENSIVE METABOLIC 09368 ALT 9 IU/L 2010 Unknown COMPREHENSIVE METABOLIC 79214 BUN 16 MG/DL 2010 Unknown COMPREHENSIVE METABOLIC 40951 ALBUMIN 4.0 GM/DL 2010 Unknown COMPREHENSIVE METABOLIC 35639 CHLORIDE 108 MMOL/L 07/06 Unknown COMPREHENSIVE METABOLIC 91031 BILI TOT 0.5 MG/DL 2010 Unknown COMPREHENSIVE METABOLIC 09898 ALK PHOS 76 U/L 2010 Unknown COMPREHENSIVE METABOLIC 58484 SODIUM 139 MMOL/L 07/06 Unknown COMPREHENSIVE METABOLIC 97105 CREATININE 1.02 MG/DL 04/2010 Unknown COMPREHENSIVE METABOLIC 87933 CALCIUM 9.2 MG/DL 2010 Unknown COMPREHENSIVE METABOLIC 31600 POTASSIUM 4.5 MMOL/L 07/06 Unknown COMPREHENSIVE METABOLIC 87703 PROT TOT 6.1 GM/DL 2010 Unknown COMPREHENSIVE METABOLIC 00594 Glucose 93 MG/DL 2010 Unknown COMPREHENSIVE METABOLIC 02771 BICARB 26 MMOL/L 2010 Unknown COMPREHENSIVE METABOLIC 80926 ANION GAP 5 MEQ/L 2010 Unknown LIPID GROUP 97959 HDL TEST 46 MG/DL 07/06/2010 Unknown LIPID GROUP 96747 TRIG 102 MG/DL 07/06/2010 Unknown LIPID GROUP 66506 TEST LDL 88 MG/DL 07/06/2010 Unknown LIPID GROUP 68487 CHOL 154 MG/DL 07/06/2010 Unknown LIPID GROUP 83160 RCHOL/HDL 3.35 RATIO 07/06/2010 Unknow n Procedures Procedure Codes Date ROUTINE VENIPUNCTURE CPT-4: 21418 03/13/2019 ASSAY THYROID STIM HORMONE CPT-4: 58201 03/13/2019 COMPLETE CBC W/AUTO DIFF WBC CPT-4: 83186 03/13/2019 COMPREHEN METABOLIC PANEL CPT-4: 74422 03/13/2019 ROUTINE VENIPUNCTURE CPT-4: 38850 01/23/2019 LIPID PANEL CPT-4: 91207 01/23/2019 FLU VACC PRSV FREE INC ANTIG 65 AND OLDER CPT-4: 75041 12/26/2018 FLU VACC PRSV FREE INC ANTIG 65 AND OLDER CPT-4: 56844 12/26/2018 ADMIN INFLUENZA VIRUS VAC CPT-4: G0008 12/26/2018 COMPREHEN METABOLIC PANEL CPT-4: 51633 12/15/2018 ROUTINE VENIPUNCTURE CPT-4: 39935 12/15/2018 ROUTINE VENIPUNCTURE CPT-4: 49432 08/14/2018 ASSAY THYROID STIM HORMONE CPT-4: 63973 08/14/2018 COMPREHEN METABOLIC PANEL CPT-4: 01288 08/14/2018 COMPLETE CBC W/AUTO DIFF WBC CPT-4: 73577 08/14/2018 URINALYSIS NONAUTO W/O SCOPE CPT-4: 18009 05/10/2018 URINE CULTURE/ COLONY COUNT CPT-4: 27323 05/10/2018 URINE CULTURE/ COLONY COUNT CPT-4: 56337 12/06/2017 ROUTINE VENIPUNCTURE CPT-4: 39582 11/30/2017 ASSAY OF FREE THYROXINE CPT-4: 99206 11/30/2017 ASSAY THYROID STIM HORMONE CPT-4: 33232 11/30/2017 COMPLETE CBC W/AUTO DIFF WBC CPT-4: 98133 11/30/2017 METABOLIC PANEL TOTAL CA CPT-4: 72501 11/30/2017 FLU VACC PRSV FREE INC ANTIG 65 AND OLDER CPT-4: 32888 11/22/2017 ASSAY, GLUCOSE, BLOOD QUANT CPT-4: 90729 11/22/2017 ADMIN INFLUENZA VIRUS VAC CPT-4: G0008 11/22/2017 ROUTINE VENIPUNCTURE CPT-4: 43507 09/27/2017 COMPREHEN METABOLIC PANEL CPT-4: 22001 09/27/2017 COMPLETE CBC W/AUTO DIFF WBC CPT-4: 18160 09/27/2017 A1C HPLC CPT-4: 63223 09/27/2017 ASSAY OF TROPONIN QUANT CPT-4: 59107 09/27/2017 LIPID PANEL CPT-4: 68671 09/27/2017 THER/PROPH/DIAG INJ SC/IM CPT-4: 91779 05/30/2017 TRIAMCINOLONE ACET INJ NOS CPT-4: J3301 05/30/2017 URINALYSIS NONAUTO W/O SCOPE CPT-4: 52088 04/18/2017 URINE CULTURE/ COLONY COUNT CPT-4: 51153 04/18/2017 FLU VACC PRSV FREE INC ANTIG 65 AND OLDER CPT-4: 23745 12/10/2016 ADMIN INFLUENZA VIRUS VAC CPT-4: G0008 12/10/2016 ROUTINE VENIPUNCTURE CPT-4: 03445 11/01/2016 COMPREHEN METABOLIC PANEL CPT-4: 13661 11/01/2016 COMPLETE CBC W/AUTO DIFF WBC CPT-4: 11804 11/01/2016 LIPID PANEL CPT-4: 54444 11/01/2016 A1C HPLC CPT-4: 97101 11/01/2016 ASSAY THYROID STIM HORMONE CPT-4: 38262 11/01/2016 ROUTINE VENIPUNCTURE CPT-4: 33118 05/13/2016 ASSAY THYROID STIM HORMONE CPT-4: 16533 05/13/2016 COMPREHEN METABOLIC PANEL CPT-4: 77576 05/13/2016 COMPLETE CBC W/AUTO DIFF WBC CPT-4: 90973 05/13/2016 A1C HPLC CPT-4: 34870 05/13/2016 FLU VACC PRSV FREE INC ANTIG 65 AND OLDER CPT-4: 02751 12/12/2015 ADMIN INFLUENZA VIRUS VAC CPT-4: G0008 12/12/2015 ROUTINE VENIPUNCTURE CPT-4: 97814 11/25/2015 ASSAY OF FREE THYROXINE CPT-4: 67071 11/25/2015 ASSAY THYROID STIM HORMONE CPT-4: 45552 11/25/2015 COMPREHEN METABOLIC PANEL CPT-4: 92896 11/25/2015 COMPLETE CBC W/AUTO DIFF WBC CPT-4: 75575 11/25/2015 LIPID PANEL CPT-4: 85163 11/25/2015 A1C HPLC CPT-4: 60962 11/25/2015 URINALYSIS NONAUTO W/O SCOPE CPT-4: 80356 05/21/2015 ROUTINE VENIPUNCTURE CPT-4: 70121 02/19/2015 METABOLIC PANEL TOTAL CA CPT-4: 98034 02/19/2015 PRESCRIP TRANSMIT VIA ERX SY CPT-4: G8553 02/19/2015 FLU VACC PRSV FREE INC ANTIG 65 AND OLDER CPT-4: 15917 12/20/2014 ADMIN INFLUENZA VIRUS VAC CPT-4: G0008 12/20/2014 URINALYSIS NONAUTO W/O SCOPE CPT-4: 27007 11/19/2014 URINE CULTURE/ COLONY COUNT CPT-4: 24761 11/19/2014 ROUTINE VENIPUNCTURE CPT-4: 72689 11/14/2014 ASSAY OF FREE THYROXINE CPT-4: 05304 11/14/2014 ASSAY THYROID STIM HORMONE CPT-4: 75025 11/14/2014 COMPREHEN METABOLIC PANEL CPT-4: 68452 11/14/2014 COMPLETE CBC W/AUTO DIFF WBC CPT-4: 16054 11/14/2014 LIPID PANEL CPT-4: 50519 11/14/2014 A1C HPLC CPT-4: 61332 11/14/2014 CERUM REMOVAL CPT-4: 19719 09/27/2014 PRESCRIP TRANSMIT VIA ERX SY CPT-4: G8553 07/11/2014 FLUZONE, 5ML (Medicare) CPT-4: Q2038 12/21/2013 ADMIN INFLUENZA VIRUS VAC CPT-4: G0008 12/21/2013 PRESCRIP TRANSMIT VIA ERX SY CPT-4: G8553 10/17/2013 PRESCRIP TRANSMIT VIA ERX SY CPT-4: G8553 09/24/2013 PRESCRIP TRANSMIT VIA ERX SY CPT-4: G8553 05/31/2013 ROUTINE VENIPUNCTURE CPT-4: 00633 03/28/2013 ASSAY OF FREE THYROXINE CPT-4: 30387 03/28/2013 ASSAY THYROID STIM HORMONE CPT-4: 85315 03/28/2013 COMPREHEN METABOLIC PANEL CPT-4: 95893 03/28/2013 COMPLETE CBC W/AUTO DIFF WBC CPT-4: 62837 03/28/2013 LIPID PANEL CPT-4: 40088 03/28/2013 A1C HPLC CPT-4: 12941 03/28/2013 VITAMIN B 12 FOLIC ACID CPT-4: 69352|10872 03/28/2013 PRESCRIP TRANSMIT VIA ERX SY CPT-4: G8553 03/26/2013 PRESCRIP TRANSMIT VIA ERX SY CPT-4: G8553 12/19/2012 FLUZONE, 5ML (Medicare) CPT-4: Q2038 11/27/2012 ADMIN INFLUENZA VIRUS VAC CPT-4: G0008 11/27/2012 PRESCRIP TRANSMIT VIA ERX SY CPT-4: G8553 10/04/2012 PRESCRIP TRANSMIT VIA ERX SY CPT-4: G8553 07/14/2012 ROUTINE VENIPUNCTURE CPT-4: 46926 02/23/2012 ASSAY OF FREE THYROXINE CPT-4: 58517 02/23/2012 ASSAY THYROID STIM HORMONE CPT-4: 40595 02/23/2012 COMPREHEN METABOLIC PANEL CPT-4: 31878 02/23/2012 COMPLETE CBC W/AUTO DIFF WBC CPT-4: 24433 02/23/2012 LIPID PANEL CPT-4: 00081 02/23/2012 A1C GLYCOSYLATED HEMOGLOBIN TEST CPT-4: 79447 012 CERUM REMOVAL CPT-4: 81157 02/22/2012 PRESCRIP TRANSMIT VIA ERX SY CPT-4: G8553 02/22/2012 PRESCRIP TRANSMIT VIA ERX SY CPT-4: G8553 12/15/2011 FLUZONE, 5ML (Medicare) CPT-4: Q2038 12/02/2011 ADMIN INFLUENZA VIRUS VAC CPT-4: G0008 12/02/2011 ASSAY, GLUCOSE, BLOOD QUANT CPT-4: 04913 09/21/2011 URINALYSIS NONAUTO W/O SCOPE CPT-4: 04580 09/16/2011 URINE CULTURE/ COLONY COUNT CPT-4: 72339 09/16/2011 ROUTINE VENIPUNCTURE CPT-4: 22785 09/15/2011 ASSAY OF FREE THYROXINE CPT-4: 79716 09/15/2011 ASSAY THYROID STIM HORMONE CPT-4: 80718 09/15/2011 COMPREHEN METABOLIC PANEL CPT-4: 19998 09/15/2011 COMPLETE CBC W/AUTO DIFF WBC CPT-4: 94650 09/15/2011 LIPID PANEL CPT-4: 30830 09/15/2011 ASSAY OF INSULIN CPT-4: 74159 09/15/2011 A1C GLYCOSYLATED HEMOGLOBIN TEST CPT-4: 02331 012 DRAIN/INJECT JOINT/BURSA CPT-4: 82149 08/16/2011 METHYLPREDNISOLONE 40 MG INJ CPT-4: J1030 08/16/2011 TRIAMCINOLONE ACET INJ NOS CPT-4: J3301 08/16/2011 PRESCRIP TRANSMIT VIA ERX SY CPT-4: G8553 08/03/2011 PRESCRIP TRANSMIT VIA ERX SY CPT-4: G8553 07/26/2011 METHYLPREDNISOLONE 40 MG INJ CPT-4: J1030 06/28/2011 DRAIN/INJECT JOINT/BURSA CPT-4: 75265 06/28/2011 TRIAMCINOLONE ACET INJ NOS CPT-4: J3301 06/28/2011 PRESCRIP TRANSMIT VIA ERX SY CPT-4: G8553 06/28/2011 ROUTINE VENIPUNCTURE CPT-4: 77407 04/01/2011 ASSAY OF FREE THYROXINE CPT-4: 80272 04/01/2011 ASSAY THYROID STIM HORMONE CPT-4: 61152 04/01/2011 COMPREHEN METABOLIC PANEL CPT-4: 14882 04/01/2011 COMPLETE CBC W/AUTO DIFF WBC CPT-4: 05757 04/01/2011 LIPID PANEL CPT-4: 56049 04/01/2011 PRESCRIP TRANSMIT VIA ERX SY CPT-4: G8553 03/31/2011 CERUM REMOVAL CPT-4: 72711 02/11/2011 PRESCRIP TRANSMIT VIA ERX SY CPT-4: G8553 02/11/2011 FLUZONE, 5ML (Medicare) CPT-4: Q2038 12/09/2010 ADMIN INFLUENZA VIRUS VAC CPT-4: G0008 12/09/2010 PRESCRIP TRANSMIT VIA ERX SY CPT-4: G8553 10/15/2010 URINALYSIS NONAUTO W/O SCOPE CPT-4: 76462 09/29/2010 URINE CULTURE/ COLONY COUNT CPT-4: 54788 09/29/2010 CUR TOBACCO NON-USER CPT-4: G8457 09/29/2010 ROUTINE VENIPUNCTURE CPT-4: 61733 07/06/2010 COMPLETE CBC W/AUTO DIFF WBC CPT-4: 88834 07/06/2010 COMPREHEN METABOLIC PANEL CPT-4: 70873 07/06/2010 LIPID PANEL CPT-4: 06650 07/06/2010 ASSAY THYROID STIM HORMONE CPT-4: 09605 07/06/2010 ASSAY OF FREE THYROXINE CPT-4: 84428 07/06/2010 PRESCRIP TRANSMIT VIA ERX SY CPT-4: G8553 07/02/2010 INJ TRIGGER POINT 1/2 MUSCL CPT-4: 15459 04/06/2010 TRIAMCINOLONE ACET INJ NOS CPT-4: J3301 04/06/2010 METHYLPREDNISOLONE 40 MG INJ CPT-4: J1030 04/06/2010 THER/PROPH/DIAG INJ SC/IM CPT-4: 67234 04/01/2010 KETOROLAC TROMETHAMINE INJ CPT-4: J1885 04/01/2010 PRESCRIP TRANSMIT VIA ERX SY CPT-4: G8553 01/22/2010 FLU VACCINE 3 YRS & > IM UP 64 CPT-4: 14372 10/06/201 0 ADMIN INFLUENZA VIRUS VAC CPT-4: G0008 12/10/2009 URINALYSIS NONAUTO W/O SCOPE CPT-4: 97994 12/02/2009 URINE CULTURE/ COLONY COUNT CPT-4: 94585 12/02/2009 PRESCRIP TRANSMIT VIA ERX SY CPT-4: G8553 12/02/2009 THER/PROPH/DIAG INJ SC/IM CPT-4: 71136 09/10/2009 VITAMIN B12 INJECTION CPT-4: J3420 09/10/2009 THER/PROPH/DIAG INJ SC/IM CPT-4: 64477 08/11/2009 VITAMIN B12 INJECTION CPT-4: J3420 08/11/2009 ROUTINE VENIPUNCTURE CPT-4: 53075 06/10/2009 Vital Signs Date Vital 04/03/2019 Blood Pressure 1: 148/66 Code: 8480-6 Heart Rate 1: 56 bpm Respiratory Rate: 20 bpm SpO2: 99% Temperature: 36.6 (C) / 97.8 (F) We ight: 211 lbs 03/20/2019 Blood Pressure 1: 138/64 Code: 8480-6 Heart Rate 1: 52 bpm Respiratory Rate: 18 bpm SpO2: 98% Temperature: 36.3 (C) / 97.4 (F) 03/13/2019 Blood Pressure 1: 144/82 Code: 8480-6 He art Rate 1: 56 bpm 03/13/2019 Blood Pressure 1: 154/86 Code: 8480-6 Heart Rate 1: 64 bpm Respiratory Rate: 20 bpm SpO2: 99% Temperature: 37.1 (C) / 98.7 (F) We ight: 215 lbs 11/07/2018 Blood Pressure 1: 140/70 Code: 8480-6 Heart Rate 1: 57 bpm SpO2: 99% Temperature: 35.9 (C) / 96.6 (F) Weight: 215 lbs 08/14/2018 Blood Pressure 1: 144/70 Code: 8480-6 Heart Rate 1: 60 bpm Respiratory Rate: 20 bpm SpO2: 95% Temperature: 36.4 (C) / 97.6 (F) We ight: 214 lbs 05/10/2018 Blood Pressure 1: 128/78 Code: 8480-6 Heart Rate 1: 56 bpm Respiratory Rate: 20 bpm SpO2: 98% Temperature: 36.3 (C) / 97.4 (F) We ight: 213 lbs 02/14/2018 Blood Pressure 1: 142/60 Code: 8480-6 BMI: 38.2 Code: 96064-7 Heart Rate 1: 48 bpm Height: 5'2" Respiratory Rate: 20 bpm SpO2: 98% Tempera ture: 36.7 (C) / 98.1 (F) Weight: 212 lbs 01/10/2018 Blood Pressure 1: 142/64 Code: 8480-6 BMI: 38.5 Code: 10434-8 Heart Rate 1: 52 bpm Height: 5'2" Respiratory Rate: 22 bpm SpO2: 96% Tempera ture: 36.1 (C) / 96.9 (F) Weight: 214 lbs 12/06/2017 Blood Pressure 1: 124/80 Code: 8480-6 BMI: 38.3 Code: 75449-6 Heart Rate 1: 68 bpm Height: 5'2" Respiratory Rate: 20 bpm Temperature: 36 .3 (C) / 97.4 (F) Weight: 213 lbs 11/22/2017 Blood Pressure 1: 132/78 Code: 8480-6 BMI: 37.6 Code: 85539-7 Heart Rate 1: 68 bpm Height: 5'2" Respiratory Rate: 20 bpm SpO2: 97% Tempera ture: 36.8 (C) / 98.2 (F) Weight: 209 lbs 10/20/2017 Blood Pressure 1: 150/76 Code: 8480-6 BMI: 38.5 Code: 00192-9 Heart Rate 1: 64 bpm Height: 5'2" Respiratory Rate: 20 bpm SpO2: 97% Tempera ture: 36.2 (C) / 97.2 (F) Weight: 214 lbs 09/27/2017 Blood Pressure 1: 122/74 Code: 8480-6 BMI: 38.2 Code: 40574-0 Heart Rate 1: 64 bpm Height: 5'2" Respiratory Rate: 18 bpm SpO2: 96% Tempera ture: 35.8 (C) / 96.4 (F) Weight: 212 lbs 08/16/2017 Blood Pressure 1: 124/78 Code: 8480-6 BMI: 37.8 Code: 40882-8 Heart Rate 1: 76 bpm Height: 5'2" Respiratory Rate: 20 bpm Temperature: 36 .8 (C) / 98.3 (F) Weight: 210 lbs 07/07/2017 Blood Pressure 1: 136/70 Code: 8480-6 BMI: 38.0 Code: 42767-4 Heart Rate 1: 68 bpm Height: 5'2" Respiratory Rate: 20 bpm SpO2: 97% Tempera ture: 36.8 (C) / 98.2 (F) Weight: 211 lbs 05/30/2017 Blood Pressure 1: 140/65 Code: 8480-6 Heart Rate 1: 75 bpm Respiratory Rate: 24 bpm SpO2: 95% Temperature: 37.0 (C) / 98.6 (F) We ight: 211 lbs 04/18/2017 Blood Pressure 1: 154/70 Code: 8480-6 BMI: 37.6 Code: 90225-1 Heart Rate 1: 76 bpm Height: 5'2" Respiratory Rate: 20 bpm SpO2: 98% Tempera ture: 36.9 (C) / 98.5 (F) Weight: 209 lbs 10/25/2016 Blood Pressure 1: 156/70 Code: 8480-6 BMI: 37.1 Code: 66706-8 Heart Rate 1: 72 bpm Height: 5'2" Respiratory Rate: 20 bpm SpO2: 97% Tempera ture: 37.0 (C) / 98.6 (F) Weight: 206 lbs 09/20/2016 Blood Pressure 1: 152/78 Code: 8480-6 BMI: 36.8 Code: 76562-5 Heart Rate 1: 78 bpm Height: 5'2" Respiratory Rate: 20 bpm SpO2: 98% Tempera ture: 36.1 (C) / 97.0 (F) Weight: 204 lbs 05/12/2016 Blood Pressure 1: 142/70 Code: 8480-6 BMI: 36.9 Code: 59170-6 Heart Rate 1: 64 bpm Height: 5'2" Respiratory Rate: 20 bpm SpO2: 96% Tempera ture: 36.5 (C) / 97.7 (F) Weight: 205 lbs 03/18/2016 Blood Pressure 1: 142/68 Code: 8480-6 Heart Rate 1: 88 bpm Respiratory Rate: 18 bpm SpO2: 98% Temperature: 36.3 (C) / 97.3 (F) We ight: 209 lbs 02/06/2016 Blood Pressure 1: 130/78 Code: 8480-6 Heart Rate 1: 68 bpm Respiratory Rate: 20 bpm SpO2: 95% Temperature: 36.4 (C) / 97.6 (F) We ight: 212 lbs 08/26/2015 Blood Pressure 1: 122/64 Code: 8480-6 BMI: 39.1 Code: 51747-1 Heart Rate 1: 76 bpm Height: 5'2" Respiratory Rate: 20 bpm Temperature: 36 .8 (C) / 98.2 (F) Weight: 217 lbs 05/21/2015 Blood Pressure 1: 144/70 Code: 8480-6 BMI: 39.4 Code: 15004-6 Heart Rate 1: 76 bpm Height: 5'2" Respiratory Rate: 20 bpm Temperature: 36 .6 (C) / 97.9 (F) Weight: 219 lbs 02/19/2015 Blood Pressure 1: 152/60 Code: 8480-6 BMI: 39.6 Code: 84302-1 Heart Rate 1: 84 bpm Height: 5'2" Respiratory Rate: 20 bpm Temperature: 37 .0 (C) / 98.6 (F) Weight: 220 lbs 11/13/2014 Blood Pressure 1: 146/76 Code: 8480-6 BMI: 39.8 Code: 16504-8 Heart Rate 1: 88 bpm Height: 5'2" Respiratory Rate: 20 bpm Temperature: 37 .0 (C) / 98.6 (F) Weight: 221 lbs 09/27/2014 Blood Pressure 1: 132/70 Code: 8480-6 BMI: 39.1 Code: 08641-8 Heart Rate 1: 88 bpm Height: 5'2" Respiratory Rate: 20 bpm Temperature: 36 .4 (C) / 97.6 (F) Weight: 217 lbs 07/11/2014 Blood Pressure 1: 132/66 Code: 8480-6 BMI: 39.9 Code: 68203-2 Heart Rate 1: 72 bpm Height: 5'2" Respiratory Rate: 20 bpm Temperature: 36 .9 (C) / 98.4 (F) Weight: 218 lbs 05/23/2014 Blood Pressure 1: 136/80 Code: 8480-6 Heart Rate 1: 76 bpm Respiratory Rate: 20 bpm Temperature: 36.7 (C) / 98.0 (F) Weight: 224 lbs 03/20/2014 Blood Pressure 1: 134/78 Code: 8480-6 BMI: 39.7 Code: 73724-0 Heart Rate 1: 84 bpm Height: 5'2" Respiratory Rate: 20 bpm Temperature: 36 .7 (C) / 98.0 (F) Weight: 217 lbs 10/17/2013 Blood Pressure 1: 146/78 Code: 8480-6 BMI: 39.5 Code: 95933-1 Heart Rate 1: 82 bpm Height: 5'2" Respiratory Rate: 18 bpm Temperature: 35 .6 (C) / 96.1 (F) Weight: 216 lbs 09/24/2013 Blood Pressure 1: 134/70 Code: 8480-6 BMI: 37.9 Code: 25713-2 Heart Rate 1: 80 bpm Height: 5'3" Respiratory Rate: 20 bpm Temperature: 36 .8 (C) / 98.2 (F) Weight: 214 lbs 05/31/2013 Blood Pressure 1: 132/70 Code: 8480-6 BMI: 37.6 Code: 08153-3 Heart Rate 1: 80 bpm Height: 5'3" Respiratory Rate: 20 bpm Temperature: 36 .8 (C) / 98.3 (F) Weight: 212 lbs 03/26/2013 Blood Pressure 1: 116/74 Code: 8480-6 Heart Rate 1: 68 bpm Respiratory Rate: 20 bpm Temperature: 36.2 (C) / 97.1 (F) Weight: 212 lbs 12/19/2012 Blood Pressure 1: 132/82 Code: 8480-6 BMI: 37.4 Code: 65828-6 Heart Rate 1: 76 bpm Height: 5'3" Respiratory Rate: 20 bpm Temperature: 36 .7 (C) / 98.0 (F) Weight: 211 lbs 12/04/2012 Blood Pressure 1: 130/76 Code: 8480-6 He art Rate 1: 78 bpm 11/27/2012 Blood Pressure 1: 140/82 Code: 8480-6 BMI: 36.8 Code: 32795-1 Heart Rate 1: 66 bpm Height: 5'3" Respiratory Rate: 20 bpm Temperature: 36 .1 (C) / 96.9 (F) Weight: 208 lbs 10/04/2012 Blood Pressure 1: 138/80 Code: 8480-6 BMI: 36.4 Code: 70807-9 Heart Rate 1: 72 bpm Height: 5'4" Respiratory Rate: 20 bpm Temperature: 36 .7 (C) / 98.0 (F) Weight: 212 lbs 07/27/2012 Blood Pressure 1: 124/70 Code: 8480-6 BMI: 36.9 Code: 24990-3 Heart Rate 1: 60 bpm Height: 5'4" Temperature: 36.1 (C) / 97.0 (F) Weight: 215 lbs 07/14/2012 Blood Pressure 1: 132/86 Code: 8480-6 BMI: 36.9 Code: 08661-6 Heart Rate 1: 76 bpm Height: 5'4" Respiratory Rate: 20 bpm Temperature: 36 .8 (C) / 98.2 (F) Weight: 215 lbs 06/08/2012 Blood Pressure 1: 134/82 Code: 8480-6 BMI: 36.6 Code: 34171-4 Heart Rate 1: 72 bpm Height: 5'4" Respiratory Rate: 20 bpm Temperature: 36 .3 (C) / 97.4 (F) Weight: 213 lbs 02/22/2012 Blood Pressure 1: 142/80 Code: 8480-6 BMI: 37.1 Code: 47785-7 Heart Rate 1: 76 bpm Height: 5'4" Respiratory Rate: 20 bpm Temperature: 36 .8 (C) / 98.3 (F) Weight: 216 lbs 12/28/2011 Blood Pressure 1: 128/68 Code: 8480-6 BMI: 37.6 Code: 90191-1 Heart Rate 1: 72 bpm Height: 5'4" Respiratory Rate: 20 bpm Temperature: 36 .6 (C) / 97.9 (F) Weight: 219 lbs 12/15/2011 Blood Pressure 1: 122/70 Code: 8480-6 Heart Rate 1: 76 bpm Respiratory Rate: 20 bpm Temperature: 36.7 (C) / 98.1 (F) Weight: 218 lbs 09/21/2011 Blood Pressure 1: 132/80 Code: 8480-6 He art Rate 1: 84 bpm 09/13/2011 Blood Pressure 1: 128/78 Code: 8480-6 BMI: 38.1 Code: 44333-0 Heart Rate 1: 84 bpm Height: 5'4" Respiratory Rate: 20 bpm Temperature: 36 .9 (C) / 98.4 (F) Weight: 222 lbs 08/16/2011 Blood Pressure 1: 138/80 Code: 8480-6 BMI: 37.9 Code: 05690-6 Heart Rate 1: 74 bpm Height: 5'4" Temperature: 36.1 (C) / 97.0 (F) Weight: 221 lbs 08/03/2011 Blood Pressure 1: 126/78 Code: 8480-6 BMI: 38.4 Code: 59445-5 Heart Rate 1: 72 bpm Height: 5'4" Respiratory Rate: 20 bpm Temperature: 36 .7 (C) / 98.0 (F) Weight: 224 lbs 07/26/2011 Blood Pressure 1: 138/72 Code: 8480-6 BMI: 38.4 Code: 18120-2 Heart Rate 1: 72 bpm Height: 5'4" Respiratory Rate: 20 bpm Temperature: 36 .6 (C) / 97.9 (F) Weight: 224 lbs 06/28/2011 Blood Pressure 1: 122/78 Code: 8480-6 BMI: 38.8 Code: 69503-9 Heart Rate 1: 88 bpm Height: 5'4" Respiratory Rate: 20 bpm Temperature: 36 .6 (C) / 97.8 (F) Weight: 226 lbs 03/31/2011 Blood Pressure 1: 116/60 Code: 8480-6 BMI: 38.1 Code: 59664-4 Heart Rate 1: 92 bpm Height: 5'4" Respiratory Rate: 20 bpm Temperature: 36 .8 (C) / 98.2 (F) Weight: 222 lbs 02/11/2011 Blood Pressure 1: 118/62 Code: 8480-6 BMI: 37.9 Code: 36333-1 Heart Rate 1: 80 bpm Height: 5'4" Temperature: 36.5 (C) / 97.7 (F) Weight: 221 lbs 10/15/2010 Blood Pressure 1: 132/70 Code: 8480-6 Heart Rate 1: 84 bpm Respiratory Rate: 20 bpm Temperature: 36.7 (C) / 98.0 (F) Weight: 221 lbs 09/29/2010 Blood Pressure 1: 114/72 Code: 8480-6 BMI: 37.6 Code: 68546-6 Heart Rate 1: 76 bpm Height: 5'4" Respiratory Rate: 20 bpm Temperature: 36 .8 (C) / 98.3 (F) Weight: 219 lbs 07/02/2010 Blood Pressure 1: 136/76 Code: 8480-6 Te mperature: 36.0 (C) / 96.8 (F) Weight: 219 lbs 8 oz 04/06/2010 Blood Pressure 1: 128/80 Code: 8480-6 Heart Rate 1: 72 bpm Temperature: 36.3 (C) / 97.4 (F) Weight: 218 lbs 04/01/2010 Blood Pressure 1: 126/70 Code: 8480-6 Heart Rate 1: 72 bpm Temperature: 36.7 (C) / 98.0 (F) 01/22/2010 Blood Pressure 1: 126/78 Code: 8480-6 Te mperature: 36.2 (C) / 97.1 (F) Weight: 217 lbs 8 oz 12/02/2009 Blood Pressure 1: 116/70 Code: 8480-6 Heart Rate 1: 72 bpm Temperature: 36.4 (C) / 97.6 (F) Weight: 222 lbs 10/21/2009 Blood Pressure 1: 114/78 Code: 8480-6 Heart Rate 1: 72 bpm Temperature: 37.1 (C) / 98.8 (F) Weight: 225 lbs 09/10/2009 Blood Pressure 1: 128/78 Code: 8480-6 Heart Rate 1: 76 bpm Temperature: 36.6 (C) / 97.8 (F) Weight: 224 lbs 08/11/2009 Blood Pressure 1: 116/78 Code: 8480-6 Heart Rate 1: 80 bpm Temperature: 36.4 (C) / 97.6 (F) Weight: 226 lbs 06/09/2009 Blood Pressure 1: 120/70 Code: 8480-6 BMI: 38.3 Code: 12704-3 Heart Rate 1: 88 bpm Height: 5'5" Temperature: 36.4 (C) / 97.6 (F) Weight: 230 lbs Functional Status No Functional Status data Reason For Visit Reason For Visit Effective Dates Notes follow up 04/03/2019 follow up 03/20/2019 blood pressure check 03/13/2019 high blood pressure 03/13/2019 lab draw 01/23/2019 lab draw 12/15/2018 hearing loss 11/07/2018 left ear follow up 08/14/2018 follow up 05/10/2018 Patient has upcoming appointment with Dr Mcgrath and carotid dopplers tomorrow follow up 02/14/2018 Patient had heart ca th on 10-30-18 and one of the bypass veins in spasming follow up 01/10/2018 4 Week follow up 12/06/2017 follow up 11/22/2017 high blood pressure 10/20/2017 Dr Mcgrath has ordered holter monitor and hydralazine 50mg PRN dizziness 09/27/2017 On Tuesday morning simi cortes woke up and went to the bathroom and after lying down became very dizzy. Patient has hx of vertigo so didn't think anything of it. She usually just has them intermittently, but had more that day. While at [employer] began to feel very ill and became very shaky. She got home and sat in the recliner and had the jittery/nervous feeling. Later that night it finally resolved. Patient feels like she had a spell like this around the 07 of September and thought it was due to extreme heat exhaustion. follow up 08/16/2017 back pain 07/07/2017 otalgia 05/30/2017 back pain 04/18/2017 injection(s) 12/10/2016 flu shot lab draw 11/01/2016 follow up 10/25/2016 pelvic pain 09/20/2016 Patient states pain started in July with a "Constant Ache" to left inguinal area. Patient states at that time pain was intermittent. Then, approximately 2nd week of August pain worsened and radiates to left low back area. lab draw 05/13/2016 hyperglycemia 05/12/2016 cough 03/18/2016 otalgia 02/06/2016 injection(s) 12/12/2015 Influenza lab draw 11/25/2015 constipation 08/26/2015 flank pain 05/21/2015 follow up 02/19/2015 3mo fwup injection(s) 12/20/2014 Influenza acute renal failure 11/19/2014 lab draw 11/14/2014 fatigue 11/13/2014 otalgia 09/27/2014 pain, limb 07/11/2014 follow up 05/23/2014 Hospital fwup high blood pressure 03/20/2014 injection(s) 12/21/2013 flu shot sinusitis 10/17/2013 high blood pressure 09/24/2013 cough 05/31/[address] Kevin conde's office so he started he on amlodipine 10mg but seems to be dragging her down. Patient decreased to 1/2 tablet this last week lab draw 03/28/2013 cough 03/26/2013 cough 12/19/2012 high blood pressure 12/04/2012 follow up 11/27/2012 ER dizziness 10/04/2012 follow up 07/27/2012 otalgia 07/14/2012 breast complaint 06/08/2012 lab draw 02/23/2012 follow up 02/22/2012 2mo fwup follow up 12/28/2011 2wk fwup gas and bloating 12/15/2011 Dr Mcgrath has her mon itoring because was high in his office at last visit injection(s) 12/02/2011 dizziness 09/21/2011 dizziness 09/16/2011 lab draw 09/15/2011 muscle weakness 09/13/2011 concerns of simvasta tin with fatigue and muscle weakness leg pain/sciatica 08/16/2011 hip pain 08/03/2011 back pain 07/26/2011 has tried ice pack, muscle relaxers, and moist heat back pain 06/28/2011 fatigue 03/31/2011 in hands/feet otalgia 02/11/2011 follow up 10/15/2010 2wk fwup back pain 09/29/2010 thinks ulcer may hav e returned lab draw 07/06/2010 dizziness 07/02/2010 Left ear and facial pain, right ear pain follow up 04/06/2010 1wk fwup hip pain 04/01/2010 feels very draggy, f atigue, BP 80/63, normally running 100's/60's chills 01/22/2010 injection(s) 12/10/2009 flu shot follow up 12/02/2009 6wk fwup, had HH rep aired and is starting to feel better, started on reglan 10mg tid follow up 10/21/2009 hosp fwup follow up 09/10/2009 1mo fwup, saw Dr Sarah andrade and hasn't gave cardiac clearance yet for HH repair, did have chemical stress test yesterday and waiting on results follow up 08/11/2009 from EGD/colonoscopy --has Hiatal Hernia and wants to do repair follow up 06/09/2009 Encounters Encounter Performer Location Codes Date ([id number]) OFFICE/OUTPATIENT VISIT EST Diagnosis: Essential (primary) hypertension[ICD10: I10] Diagnosis: Generalized anxiety disorder[ICD10: F41.1] Vikki GUAMAN DO [facility] CPT-4: 41368 04/03/2019 ([id number]) OFFICE/OUTPATIENT VISIT EST Diagnosis: Essential (primary) hypertension[ICD10: I10] Diagnosis: Palpitations[ICD10: R00.2] Vikki BENJAMIN [facility] CPT-4: 08705 03/20/2019 ([id number]) OFFICE/OUTPATIENT VISIT EST Diagnosis: Essential hypertension[ICD10: I10] Diagnosis: Palpitations[ICD10: R00.2] Diagnosis: Stress reaction[ICD10: F43.0] Vikki GUAMAN [facility] CPT-4: 43336 03/13/2019 ([id number]) NURSE/OUTPATIENT VISIT EST Diagnosis: Mixed hyperlipidemia[ICD10: E78.2] [facility] 0[facility] 01/23/2019 ([id number]) NURSE/OUTPATIENT VISIT EST Diagnosis: FLU VACCINE[ICD10: Z23] Vikki BALL [facility] CPT-4: 52671 12/26/2018 ([id number]) NURSE/OUTPATIENT VISIT EST Diagnosis: Chronic kidney disease, stage 1[ICD10: N18.1] Vikki GUAMAN [facility] CPT-4: 68716 12/15/2018 ([id number]) OFFICE/OUTPATIENT VISIT EST Diagnosis: Acute serous otitis media, left ear[ICD10: H65.02] Jennifer GUAMAN [facility] CPT-4: 38594 11/07/2018 ([id number]) OFFICE/OUTPATIENT VISIT EST Diagnosis: Essential (primary) hypertension[ICD10: I10] Diagnosis: 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] Diagnosis: Hypoglycemia, unspecified[ICD10: E16.2] Diagnosis: Other fatigue[ICD10: R53.83] Diagnosis: Urinary tract infection, site not specified[ICD10: N39.0] [facility]: 44485 08/14/2018 ([id number]) OFFICE/OUTPATIENT VISIT EST Diagnosis: Essential (primary) hypertension[ICD10: I10] Diagnosis: Gastro-esophageal reflux disease without esophagitis[ICD10: K21.9] Diagnosis: Urinary tract infection, site not specified[ICD10: N39.0] Vikki GUAMAN DO [facility] CPT-4: 09140 05/10/2018 ([id number]) OFFICE/OUTPATIENT VISIT EST Diagnosis: Gastro-esophageal reflux disease without esophagitis[ICD10: K21.9] Diagnosis: Epigastric pain[ICD10: R10.13] Vikki GUAMAN DO [facility] CPT-4: 92920 02/14/2018 ([id number]) OFFICE/OUTPATIENT VISIT EST Diagnosis: 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] Diagnosis: Essential (primary) hypertension[ICD10: I10] Diagnosis: Generalized anxiety disorder[ICD10: F41.1] Diagnosis: Gastro-esophageal reflux disease without esophagitis[ICD10: K21.9] Vikki GUAMAN [employer] [facility] CPT-4: 04336 01/10/2018 OFFICE/OUTPATIENT VISIT EST Diagnosis: Gastro-esophageal reflux disease without esophagitis[ICD10: K21.9] Diagnosis: Palpitations[ICD10: R00.2] Diagnosis: Urinary tract infection, site not specified[ICD10: N39.0] Diagnosis: Generalized anxiety disorder[ICD10: F41.1] Vikki GUAMAN [employer] [facility] CPT-4: 04834 12/06/2017 ([id number]) NURSE/OUTPATIENT VISIT EST Diagnosis: 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] Diagnosis: Hypoglycemia, unspecified[ICD10: E16.2] Diagnosis: Dizziness and giddiness[ICD10: R42] Diagnosis: Occlusion and stenosis of bilateral carotid arteries[ICD10: I65.23] Vikki GUAMAN DO [facility] CPT-4: 69839 11/30/2017 OFFICE/OUTPATIENT VISIT EST Diagnosis: Epigastric pain[ICD10: R10.13] Diagnosis: Generalized anxiety disorder[ICD10: F41.1] Diagnosis: FLU VACCINE[ICD10: Z23] Vikki CID ER [facility] CPT-4: 28234 11/22/2017 ([id number]) OFFICE/OUTPATIENT VISIT EST Diagnosis: Essential (primary) hypertension[ICD10: I10] Diagnosis: Hypoglycemia, unspecified[ICD10: E16.2] Diagnosis: Gastro-esophageal reflux disease without esophagitis[ICD10: K21.9] Vikki Peckfunmilayosakshi GUAMAN [facility] CPT-4: 94543 10/20/2017 ([id number]) OFFICE/OUTPATIENT VISIT EST Diagnosis: Dizziness and giddiness[ICD10: R42] Jennifer GUAMAN DO [facility] CPT-4: 25048 09/27/2017 ([id number]) OFFICE/OUTPATIENT VISIT EST Diagnosis: Cervicalgia[ICD10: M54.2] Diagnosis: Other spondylosis with radiculopathy, cervical region[ICD10: M47.22] Vikki Ciscofunmilayosakshi GUAMAN [facility] CPT-4: 13499 08/16/2017 ([id number]) OFFICE/OUTPATIENT VISIT EST Diagnosis: Hypoglycemia, unspecified[ICD10: E16.2] Diagnosis: Other spondylosis with radiculopathy, cervical region[ICD10: M47.22] Diagnosis: Vertigo of central origin, 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] Diagnosis: 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] Vikki Ciscofunmilayosakshi GUAMAN [employer] [facility] CPT-4: 23657 07/07/2017 ([id number]) OFFICE/OUTPATIENT VISIT EST Diagnosis: Benign paroxysmal vertigo, bilateral[ICD10: H81.13] Diagnosis: Otalgia, bilateral[ICD10: H92.03] Jennifer GUAMAN [employer] [facility] CPT-4: 33977 05/30/2017 ([id number]) OFFICE/OUTPATIENT VISIT EST Diagnosis: Low back pain[ICD10: M54.5] Diagnosis: Radiculopathy, lumbosacral region[ICD10: M54.17] Diagnosis: Left lower quadrant pain[ICD10: R10.32] Vikki Guaman CAIO KEELAWRENCE Alyssa GUAMAN [facility] CPT-4: 68122 04/18/2017 ([id number]) OFFICE/OUTPATIENT VISIT EST Diagnosis: FLU VACCINE[ICD10: Z23] Vikki BALL [facility] CPT-4: 00477 12/10/2016 ([id number]) OFFICE/OUTPATIENT VISIT EST Diagnosis: Mixed hyperlipidemia[ICD10: E78.2] Diagnosis: Essential (primary) hypertension[ICD10: I10] Diagnosis: 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] Diagnosis: Impaired fasting glucose[ICD10: R73.01] Diagnosis: Other fatigue[ICD10: R53.83] Vikki GUAMAN [facility] CPT-4: 94303 11/01/2016 ([id number]) OFFICE/OUTPATIENT VISIT EST Diagnosis: Pain in thoracic spine[ICD10: M54.6] Diagnosis: Other intervertebral disc degeneration, 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] Vikki CORTEZLINE Alyssa GUAMAN [facility] CPT-4: 10512 10/25/2016 ([id number]) OFFICE/OUTPATIENT VISIT EST Diagnosis: Left lower quadrant pain[ICD10: R10.32] Diagnosis: Low back pain[ICD10: M54.5] Vikki CORTEZLINE Alyssa Santana ELICIA [facility] CPT-4: 84800 09/20/2016 ([id number]) OFFICE/OUTPATIENT VISIT EST Diagnosis: Mixed hyperlipidemia[ICD10: E78.2] Diagnosis: Essential (primary) hypertension[ICD10: I10] Diagnosis: Hypoglycemia, unspecified[ICD10: E16.2] Vikki Ciscofunmilayosakshi KEELAWRENCE AlejandraSujata [facility] CPT-4: 42274 05/13/2016 ([id number]) OFFICE/OUTPATIENT VISIT EST Diagnosis: Impaired fasting glucose[ICD10: R73.01] Diagnosis: Mastodynia[ICD10: N64.4] Diagnosis: Mixed hyperlipidemia[ICD10: E78.2] Diagnosis: Essential (primary) hypertension[ICD10: I10] Diagnosis: Other fatigue[ICD10: R53.83] Vikki Ciscobhavya PIKE AlejandraSujata PALAK [employer] [facility] CPT-4: 09227 05/12/2016 ([id number]) OFFICE/OUTPATIENT VISIT EST Diagnosis: Acute upper respiratory infection, unspecified[ICD10: J06.9] Yue GUAMAN [facility] CPT-4: 21483 03/18/2016 ([id number]) OFFICE/OUTPATIENT VISIT EST Diagnosis: Acute mastoiditis without complications, right ear[ICD10: H70.001] Vikik GUAMAN DO [facility] CPT-4: 28941 02/06/2016 ([id number]) OFFICE/OUTPATIENT VISIT EST Diagnosis: FLU VACCINE[ICD10: Z23] Vikki BALL [facility] CPT-4: 46059 12/12/2015 ([id number]) OFFICE/OUTPATIENT VISIT EST Diagnosis: Mixed hyperlipidemia[ICD10: E78.2] Diagnosis: Essential (primary) hypertension[ICD10: I10] Diagnosis: 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] Diagnosis: Impaired fasting glucose[ICD10: R73.01] Vikki GUAMAN [facility] CPT-4: 04589 11/25/2015 ([id number]) OFFICE/OUTPATIENT VISIT EST Diagnosis: Constipation, unspecified[ICD10: K59.00] Vikki GUAMAN [facility] CPT-4: 12629 08/26/2015 ([id number]) OFFICE/OUTPATIENT VISIT EST Diagnosis: Essential (primary) hypertension[ICD10: I10] Diagnosis: Mixed hyperlipidemia[ICD10: E78.2] Diagnosis: Chronic kidney disease, stage 1[ICD10: N18.1] Vikki GUAMAN [facility] CPT-4: 34897 05/21/2015 ([id number]) OFFICE/OUTPATIENT VISIT EST Diagnosis: Muscle weakness (generalized)[ICD10: M62.81] Diagnosis: Dizziness and giddiness[ICD10: R42] Diagnosis: Essential (primary) hypertension[ICD10: I10] Diagnosis: History of falling[ICD10: Z91.81] Vikki Ciscobhavya ROMMEL GUAMAN [facility] CPT-4: 55136 02/19/2015 ([id number]) OFFICE/OUTPATIENT VISIT EST Diagnosis: FLU VACCINE[ICD10: Z23] Vikki CORTEZLINE Alyssa BALL DO [facility] CPT-4: 09021 12/20/2014 ([id number]) OFFICE/OUTPATIENT VISIT EST Diagnosis: Acute renal failure[ICD9: 584.9] Diagnosis: POLYURIA[ICD9: 788.42] Vikki CORTEZLINE Alyssa Rees DO [facility] CPT-4: 65115 11/19/2014 ([id number]) OFFICE/OUTPATIENT VISIT EST Diagnosis: HYPERLIPIDEMIA NEC/NOS[ICD9: 272.4] Diagnosis: HYPERTENSION[ICD9: 401.9] Diagnosis: CAD[ICD9: 414.00] Diagnosis: Hyperglycemia[ICD9: 790.29] Diagnosis: MALAISE AND FATIGUE[ICD9: 780.79] Vikki Peckbhavya ROMMEL Deidra GUAMAN [employer] [facility] CPT-4: 20233 11/14/2014 ([id number]) OFFICE/OUTPATIENT VISIT EST Diagnosis: MALAISE AND FATIGUE[ICD9: 780.79] Diagnosis: HYPOGLYCEMIA[ICD9: 251.2] Diagnosis: Grieving[ICD9: 309.0] Diagnosis: ABDOMINAL PAIN[ICD9: 789.00] Vikki GUAMAN [employer] [facility] CPT-4: 67246 11/13/2014 OFFICE/OUTPATIENT VISIT EST Diagnosis: CERUMEN IMPACTION[ICD9: 380.4] Diagnosis: EUSTACHIAN TUBE DYSFUNCTION[ICD9: 381.81] Jesseniasa Francis VIKKI GUAMAN DO [facility] CPT-4: 73821 09/27/2014 ([id number]) OFFICE/OUTPATIENT VISIT EST Diagnosis: Leg pain[ICD9: 729.5] Diagnosis: SUPERFIC PHLEBITIS-LEG[ICD9: 451.0] Vikki Ciscobhavya NIÑO Alyssa GUAMAN [employer] [facility] CPT-4: 59477 07/11/2014 ([id number]) OFFICE/OUTPATIENT VISIT EST Diagnosis: Thoracic back pain[ICD9: 724.1] Diagnosis: SPASM OF MUSCLE[ICD9: 728.85] Vikki CORTEZLINE Alyssa GUAMAN [employer] [facility] CPT-4: 69948 05/23/2014 ([id number]) OFFICE/OUTPATIENT VISIT EST Diagnosis: DIZZINESS/VERTIGO[ICD9: 780.4] Diagnosis: Benign positional vertigo[ICD9: 386.11] Diagnosis: HYPERTENSION[ICD9: 401.9] Diagnosis: Suspicious nevus[ICD9: 238.2] Vikki GUAMAN [facility] CPT-4: 71464 03/20/2014 ([id number]) OFFICE/OUTPATIENT VISIT EST Diagnosis: FLU VACCINE[ICD10: Z23] Vikki CID [facility] CPT-4: 30591 12/21/2013 OFFICE/OUTPATIENT VISIT EST Diagnosis: SINUSITIS, ACUTE[ICD9: 461.9] Diagnosis: EUSTACHIAN TUBE DYSFUNCTION[ICD9: 381.81] Jessenia GUAMAN [facility] CPT-4: 55683 10/17/2013 ([id number]) OFFICE/OUTPATIENT VISIT EST Diagnosis: DIZZINESS/VERTIGO[ICD9: 780.4] Diagnosis: HYPERTENSION[ICD9: 401.9] [facility] 67193 09/24/2013 ([id number]) OFFICE/OUTPATIENT VISIT EST Diagnosis: HYPERTENSION[ICD9: 401.9] Diagnosis: MALAISE AND FATIGUE[ICD9: 780.79] Diagnosis: SINUSITIS, ACUTE[ICD9: 461.9] [facility] 13666 05/31/2013 ([id number]) OFFICE/OUTPATIENT VISIT EST Diagnosis: HYPERLIPIDEMIA NEC/NOS[ICD9: 272.4] Diagnosis: HYPERTENSION[ICD9: 401.9] Diagnosis: B12 DEFIC ANEMIA NEC[ICD9: 281.1] Diagnosis: HYPOGLYCEMIA[ICD9: 251.2] Vikki MARTINEZ [facility] CPT-4: 18537 03/28/2013 OFFICE/OUTPATIENT VISIT EST Diagnosis: COUGH[ICD9: 786.2] Jessenia GUAMAN [facility] CPT-4: 39941 03/26/2013 OFFICE/OUTPATIENT VISIT EST Diagnosis: COUGH[ICD9: 786.2] Diagnosis: URI, ACUTE[ICD9: 465.9] Jessenia CID [facility] CPT-4: 71692 12/19/2012 ([id number]) OFFICE/OUTPATIENT VISIT EST Diagnosis: HYPERTENSION[ICD9: 401.9] Diagnosis: CEPHALGIA[ICD9: 784.0] Diagnosis: ANXIETY STATE NOS[ICD9: 300.00] Diagnosis: FLU VACCINE[ICD9: V04.81] Vikki Ciscofunmilayosakshi KEARNEYVIKKI Alyssa [facility]: 06675 11/27/2012 ([id number]) OFFICE/OUTPATIENT VISIT EST Diagnosis: DIZZINESS/VERTIGO[ICD9: 780.4] Diagnosis: SINUSITIS, ACUTE[ICD9: 461.9] Diagnosis: Benign positional vertigo[ICD9: 386.11] Vikki Ciscobhavya KEARNEY CHILANGOLAWRENCE Alyssa [facility] C[facility]: 50145 10/04/2012 OFFICE/OUTPATIENT VISIT EST Diagnosis: OTITIS MEDIA NOS[ICD9: 382.9] Vikkigabriel PIKE AlejandraSujata [facility] CPT-4: 22520 07/27/2012 OFFICE/OUTPATIENT VISIT EST Diagnosis: Perforation of ear drum[ICD9: 384.20] Diagnosis: SINUSITIS, ACUTE[ICD9: 461.9] Vikki Ciscofunmilayosakshi CORTEZVIKKI Alyssa [facility] CPT-4: 44685 07/14/2012 ([id number]) OFFICE/OUTPATIENT VISIT EST Diagnosis: Mastalgia[ICD9: 611.71] Vikki Ciscobhavya KEARNEYVIKKI AlejandraSujata PALAK [facility] CPT-4: 32067 06/08/2012 ([id number]) OFFICE/OUTPATIENT VISIT EST Diagnosis: HYPERLIPIDEMIA NEC/NOS[ICD9: 272.4] Diagnosis: HYPERTENSION[ICD9: 401.9] Diagnosis: DIZZINESS/VERTIGO[ICD9: 780.4] Diagnosis: Hyperglycemia[ICD9: 790.29] Diagnosis: MALAISE AND FATIGUE[ICD9: 780.79] Vikki Conde AlejandraSujata [facility] CPT-4: 55631 02/23/2012 ([id number]) OFFICE/OUTPATIENT VISIT EST Diagnosis: EUSTACHIAN TUBE DYSFUNCTION[ICD9: 381.81] Diagnosis: DIZZINESS/VERTIGO[ICD9: 780.4] Diagnosis: ABDOMINAL PAIN[ICD9: 789.00] Diagnosis: GERD[ICD9: 530.81] Diagnosis: CERUMEN IMPACTION[ICD9: 380.4] Vikki GUAMAN [facility] CPT-4: 65620 02/22/2012 OFFICE/OUTPATIENT VISIT EST Diagnosis: ABDOMINAL PAIN[ICD9: 789.00] Diagnosis: DYSPEPSIA[ICD9: 536.8] Vikki Rees [facility] CPT-4: 87052 12/28/2011 ([id number]) OFFICE/OUTPATIENT VISIT EST Diagnosis: ABDOMINAL PAIN[ICD9: 789.00] Diagnosis: DYSPEPSIA[ICD9: 536.8] Diagnosis: IBS[ICD9: 564.1] Vikki GUAMAN [facility] CPT - 4: 98790 12/15/2011 OFFICE/OUTPATIENT VISIT EST Diagnosis: DIZZINESS/VERTIGO[ICD9: 780.4] Diagnosis: HYPOGLYCEMIA[ICD9: 251.2] [facility]: 79058 09/21/2011 ([id number]) OFFICE/OUTPATIENT VISIT EST Diagnosis: URINARY TRACT INFECTION[ICD9: 599.0] [facility]: 81167 09/16/2011 ([id number]) OFFICE/OUTPATIENT VISIT EST Diagnosis: HYPERLIPIDEMIA NEC/NOS[ICD9: 272.4] Diagnosis: HYPERTENSION[ICD9: 401.9] Diagnosis: MALAISE AND FATIGUE[ICD9: 780.79] Diagnosis: DIZZINESS/VERTIGO[ICD9: 780.4] Vikki GUAMAN [facility] CPT-4: 18355 09/15/2011 ([id number]) OFFICE/OUTPATIENT VISIT EST Diagnosis: DIZZINESS/VERTIGO[ICD9: 780.4] Diagnosis: MALAISE AND FATIGUE[ICD9: 780.79] Diagnosis: HYPERTENSION[ICD9: 401.9] Vikki MARTINEZ [facility] CPT-4: 53907 09/13/2011 OFFICE/OUTPATIENT VISIT EST Diagnosis: LUMB/LUMBOSAC DISC DEGEN[ICD9: 722.52] Diagnosis: Radiculopathy of leg[ICD9: 724.4] Diagnosis: 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] Diagnosis: SPINAL ENTHESOPATHY[ICD9: 720.1] Vikki GUAMAN [employer] [facility] CPT-4: 47464 08/16/2011 ([id number]) OFFICE/OUTPATIENT VISIT EST Diagnosis: PAIN, LOWER BACK[ICD9: 724.2] Diagnosis: SPASM OF MUSCLE[ICD9: 728.85] Diagnosis: SCIATICA[ICD9: 724.3] Diagnosis: Lumbar degenerative disc disease[ICD9: 722.52] Vikki GUAMAN DO [facility] CPT-4: 29875 08/03/2011 ([id number]) OFFICE/OUTPATIENT VISIT EST Diagnosis: PAIN IN THORACIC SPINE[ICD9: 724.1] Diagnosis: SPASM OF MUSCLE[ICD9: 728.85] Vikki GUAMAN [employer] [facility] CPT-4: 77385 07/26/2011 ([id number]) OFFICE/OUTPATIENT VISIT EST Diagnosis: PAIN, LOWER BACK[ICD9: 724.2] Diagnosis: SPASM OF MUSCLE[ICD9: 728.85] Diagnosis: Sacroiliac dysfunction[ICD9: 739.4] Diagnosis: Lumbar degenerative disc disease[ICD9: 722.52] Vikki GUAMAN [employer] [facility] CPT-4: 74297 06/28/2011 OFFICE/OUTPATIENT VISIT EST Diagnosis: MALAISE AND FATIGUE[ICD9: 780.79] Diagnosis: HYPOTENSION[ICD9: 458.9] Diagnosis: CAD[ICD9: 414.00] Vikki GUAMAN [employer] [facility] CPT-4: 34789 03/31/2011 OFFICE/OUTPATIENT VISIT EST Diagnosis: SINUSITIS, ACUTE[ICD9: 461.9] Diagnosis: PHARYNGITIS, ACUTE[ICD9: 462] Diagnosis: CERUMEN IMPACTION[ICD9: 380.4] Vikki GUAMAN [employer] [facility] CPT-4: 56480 02/11/2011 OFFICE/OUTPATIENT VISIT EST Diagnosis: PAIN IN THORACIC SPINE[ICD9: 724.1] Diagnosis: GERD[ICD9: 530.81] Diagnosis: DIZZINESS/VERTIGO[ICD9: 780.4] Vikki PIKE S . [facility] CPT-4: 49498 10/15/2010 OFFICE/OUTPATIENT VISIT EST Vikki Shah [facility] CPT- 4: 79146 09/29/2010 ([id number]) OFFICE/OUTPATIENT VISIT EST Vikki PATHAK [employer] [facility] CPT-4: 76157 07/02/2010 ([id number]) OFFICE/OUTPATIENT VISIT, EST Diagnosis: PAIN, LOWER BACK[ICD9: 724.2] Vikki PIKE S. [facility] CPT-4: 90856 04/06/2010 ([id number]) OFFICE/OUTPATIENT VISIT, EST Vikki CRISOSTOMO S. [facility] CPT-4: 20741 04/01/2010 ([id number]) OFFICE/OUTPATIENT VISIT, EST Vikki CRISOSTOMO S. [facility] CPT-4: 38969 01/22/2010 ([id number]) OFFICE/OUTPATIENT VISIT, EST Vikki KEELINE S[facility] CPT-4: 27487 12/02/2009 ([id number]) OFFICE/OUTPATIENT VISIT, EST Vikki CRISOSTOMO S. [facility] CPT-4: 83859 10/21/2009 ([id number]) OFFICE/OUTPATIENT VISIT, EST Vikki CRISOSTOMO S. [facility] CPT-4: 84423 09/10/2009 ([id number]) OFFICE/OUTPATIENT VISIT, EST Vikki KEELINE S. [facility] CPT-4: 29057 08/11/2009 ([id number]) OFFICE/OUTPATIENT VISIT, EST Vikki KEARNEY QUELINE S. [facility] CPT-4: 94174 06/09/2009 Plan of Care Planned Activity Notes Codes Status Date Visit Diagnosis Plan: Generalized anxiety disorder Dis cussion: Stable ICD-9 : 300.00 ICD-10 : F41.1 04/03/2019 Visit Diagnosis Plan: Essential (primary) hypertension Discussion: Stable Follow Up: 1 months ICD-9 : 401.9 ICD-10 : I10 04/03/2019 Appointment: Vikki Guamantel: [address] [place] [address] [place] FOLLOW UP 04/03/2019 Patient Education: metoprolol tartrate- [facility] [id number] [email or web address]/resources/getResource/[email or web address] Completed 04/03/2019 Visit Diagnosis Plan: Essential (primary) hypertension Discussion: Improving with higher dose of metoprolol Recheck 2weeks ICD-9 : 401.9 ICD-10 : I10 03/20/2019 Visit Diagnosis Plan: Palpitations Discussion: Continu e higher dose of metoprolol ICD-9 : 785.1 ICD-10 : R00.2 03/20/2019 Appointment: Vikki Guaman WPtel: [address] [place] [address] US FOLLOW UP 03/20/2019 Appointment: Vikki Guaman WPtel: [address] [place] [address] 03/13/2019--moved up to 03/13/19 at 4pm (km) [place] 03/15/2019 Visit Diagnosis Plan: Palpitations Discussion: Check C BC, CMP, TSH ICD-9 : 785.1 ICD-10 : R00.2 03/13/2019 Visit Diagnosis Plan: Essential hypertension Discussio n: Increase metoprolol to 25mg q AM and 50mg po q pM Recheck 1 week ICD-9 : 401.9 ICD-10 : I10 03/13/2019 Appointment: Vikki Guaman WPtel: [address] [place] [address] US BP CHECK 03/13/2019 Appointment: Vikki Guaman WPtel: [address] [place] [address] ACUTE ILLNESS 03/13/2019 Patient Education: metoprolol tartrate- [facility] [id number] https://www.[employer]/samplemd/resources/getResource/[email or web address] Completed 03/13/2019 Care Plan: X-RAY EXAM NECK SPINE 4/5VWS LOINC : 22253-6 Pending 03/13/2019 Care Plan: X-RAY EXAM THORAC SPINE4/>VW LOINC : 20382-5 Pending 03/13/2019 Appointment: Vikki Guaman WPtel: [address] [place] [address] LAB 01/23/2019 Appointment: Vikki Guaman WPtel: [address] [place] [address] INJECTION 12/26/2018 Patient Education: INFLUENZA VACCINE [facility] Completed 12/26/2018 Appointment: Vikki Guaman WPtel: [address] [place] [address] LAB 12/15/2018 Visit Diagnosis Plan: Acute serous otitis media, left ear Discussion: instructed to use flonase and claritin daily for symptom relief. discussed with patient that if no improvement in 2 weeks, will need to follow up with ENT for audiology exam. instructed to call office with any other symptoms such as otalgia, dysphagia, fever, etc. ICD-9 : 381.01 ICD-10 : H65.02 11/07/2018 Appointment: Jennifer Rosario [address] [place] [address] ACUTE ILLNESS 11/07/2018 Visit Diagnosis Plan: Urinary tract infection, site no t specified Discussion: Started an old abx prescription ICD-9 : 599.0 ICD-10 : N39.0 08/14/2018 Visit Diagnosis Plan: Hypoglycemia, unspecified Discus james: Monitor BS At least 6 small meals a day each with protein ICD-9 : 251.2 ICD-10 : E16.2 08/14/2018 Visit Diagnosis Plan: Essential (primary) hypertension Discussion: Stable Check CMP ICD-9 : 401.9 ICD-10 : I10 08/14/2018 Visit Diagnosis Plan: Other fatigue Discussion: Check CBC, TSH ICD-9 : 780.79 ICD-10 : R53.83 08/14/2018 Appointment: Vikki Guaman WPtel: [address] [place], [place] [phone] [place] FOLLOW UP 08/14/2018 Visit Diagnosis Plan: Essential (primary) hypertension Discussion: Stable Sees Dr. Brown this month ICD-9 : 401.9 ICD-10 : I10 05/10/2018 Visit Diagnosis Plan: Urinary tract infection, site no t specified Discussion: Macrobid 100mg po BID for 1 week ICD-9 : 599.0 ICD-10 : N39.0 05/10/2018 Visit Diagnosis Plan: Gastro-esophageal reflux disease without esophagitis Discussion: Stable on omeprazole Follow Up: 3 months ICD-9 : 530.81 ICD-10 : K21.9 05/10/2018 Appointment: Vikki Guaman WPtel: [address] [place], [place] [phone] [place] FOLLOW UP 05/10/2018 Patient Education: metoprolol tartrate- [facility] [id number] [email or web address]/resources/getResource/[email or web address] Completed 05/10/2018 Appointment: Vikki Guaman WPtel: [address] [place], [place] [id number] [place] CANCELED 04/21/2018 Visit Diagnosis Plan: Gastro-esophageal reflux disease without esophagitis Discussion: Continue protonix and carafate Proceed with updated EGD ICD-9 : 530.81 ICD-10 : K21.9 02/14/2018 Visit Diagnosis Plan: Epigastric pain Discussion: Che k CT abdomen/pelvis due to ongoing abdominal pain ICD-9 : 789.06 ICD-10 : R10.13 02/14/2018 Appointment: Vikki Guaman WPtel: [address] [place], [place] [phone] [place] FOLLOW UP 02/14/2018 Care Plan: CT PELVIS W/O DYE LOINC : 361 08-9 Pending 02/14/2018 Care Plan: CT ABDOMEN W/O DYE LOINC : 36 103-0 Pending 02/14/2018 Care Plan: Referral Order SNOMED-CT : 30 [id number] Pending 02/14/2018 Visit Diagnosis Plan: 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 Discussion: S/P cardiac cath--doing medi pauline management with imdur and metoprolol increased Has fwup with cardiology next week Discussed cardiac rehab ICD-9 : 414.00 ICD-10 : I25.10 01/10/2018 Visit Diagnosis Plan: Generalized anxiety disorder Dis cussion: Stable ICD-9 : 300.00 ICD-10 : F41.1 01/10/2018 Visit Diagnosis Plan: Gastro-esophageal reflux disease without esophagitis Discussion: Continue protonix at BID dosing and carafate BID Follow Up: 2 months ICD-9 : 530.81 ICD-10 : K21.9 01/10/2018 Visit Diagnosis Plan: Essential (primary) hypertension Discussion: Stable ICD-9 : 401.9 ICD-10 : I10 01/10/2018 Appointment: Vikki Guaman WPtel: [address] [place], [place] [phone] FOLLOW UP 01/10/2018 Visit Diagnosis Plan: Gastro-esophageal reflux disease without esophagitis Discussion: Continue protonix at BID dosing Continue carafate at q AC and HS dosing for 2 more weeks then decrease to BID dosing Follow Up: 4 weeks ICD-9 : 530.81 ICD-10 : K21.9 12/06/2017 Visit Diagnosis Plan: Urinary tract infection, site no t specified Discussion: Reculture urine ICD-9 : 599.0 ICD-10 : N39.0 12/06/2017 Visit Diagnosis Plan: Generalized anxiety disorder Dis cussion: Increase xanax to BID dosing especially with upcoming cardiac testing which is already making patient more anxious and worried ICD-9 : 300.00 ICD-10 : F41.1 12/06/2017 Visit Diagnosis Plan: Palpitations Discussion: Cardilo logy going to schedule Lexiscan ICD-9 : 785.1 ICD-10 : R00.2 12/06/2017 Appointment: Vikki Guaman WPtel: [address] [place], [place] [phone] FOLLOW UP 12/06/2017 Patient Education: Patient Medication Summary Completed 12/06/2017 Appointment: Vikki Guaman WPtel: [address] [place], [place] [phone] LAB 11/30/2017 Patient Education: Patient Medication Summary Completed 11/30/2017 Visit Diagnosis Plan: Epigastric pain Discussion: Cont inue protonix and carafate but make into a slurry Flu shot given Discussed EGD if symptoms persist Follow Up: 2 weeks ICD-9 : 789.06 ICD-10 : R10.13 11/22/2017 Visit Diagnosis Plan: Generalized anxiety disorder Dis cussion: Did discuss increased risk of benzodiazepines causing dementia but at this time will stay at xanax 0.25mg po BID ICD-9 : 300.00 ICD-10 : F41.1 11/22/2017 Appointment: Vikki Guaman WPtel: [address] [place] [address] FOLLOW UP 11/22/2017 Patient Education: Patient Medication Summary Completed 11/22/2017 Visit Diagnosis Plan: Essential (primary) hypertension Discussion: Has hydralazine to use prn per cardiology Going to do 30 day holter monitor ICD-9 : 401.9 ICD-10 : I10 10/20/2017 Visit Diagnosis Plan: Hypoglycemia, unspecified Discus james: 6 small meals a day--each with protein Increase fluid intake ICD-9 : 251.2 ICD-10 : E16.2 10/20/2017 Visit Diagnosis Plan: Gastro-esophageal reflux disease without esophagitis Discussion: Change to protonix 40mg po BID Follow Up: 1 months ICD-9 : 530.81 ICD-10 : K21.9 10/20/2017 Appointment: Vikki Guaman WPtel: [address] [place], [place] [phone] ACUTE ILLNESS 10/20/2017 Patient Education: Patient Medication Summary Completed 10/20/2017 Visit Diagnosis Plan: Dizziness and giddiness Discussi on: blood work to be completed in office including cmp, cbc, troponin to rule out glucose intolerance, infection, dehydration. 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 brown's office. will have front office make appt. patient has carotid doppler annually. ICD-9 : 780.4 ICD-10 : R42 09/27/2017 Appointment: Jennifer Rosario [address] [place], [place] [id number] ACUTE ILLNESS 09/27/2017 Patient Education: Patient Medication Summary Completed 09/27/2017 Visit Diagnosis Plan: Cervicalgia Discussion: Complete course of PT since symptoms improved Continue stretching exercises Notify if symptoms return or worsen ICD-9 : 723.1 ICD-10 : M54.2 08/16/2017 Appointment: Vikki Guaman WPtel: [address] [place], [place] [id number] FOLLOW UP 08/16/2017 Patient Education: Patient Medication Summary Completed 08/16/2017 Visit Diagnosis Plan: Hypoglycemia, unspecified Discus james: Eat something with protein every 2 hrs ICD-9 : 251.2 ICD-10 : E16.2 07/07/2017 Visit Diagnosis Plan: Other spondylosis with radiculop athy, cervical region Discussion: Check MRI of cervical spine ICD-9 : 721.0 ICD-10 : M47.22 07/07/2017 Visit Diagnosis Plan: Vertigo of central origin, bilat eral Discussion: Discussed PT for vestibular therapy ICD-9 : 386.2 ICD-10 : H81.43 07/07/2017 Appointment: Vikki Guaman WPtel: [address] [place], [place] [phone] 07/07/2017 Patient Education: Patient Medication Summary Completed 07/07/2017 Care Plan: MRI NECK SPINE W/O DYE LOINC : 97449-6 Pending 07/07/2017 Visit Diagnosis Plan: Otalgia, bilateral Discussion: k enalog 40 mg given to patient im. instructed patient to monitor blood sugar at home due to risk of increased sugar. instructed patient to rtc on tuesday if no improvement and may require antibiotic. ICD-9 : 388.70 ICD-10 : H92.03 05/30/2017 Visit Diagnosis Plan: Benign paroxysmal vertigo, bilat eral Discussion: patient has meclizine at home but states it makes her too tired. instructed patient to cut in half and take at night. if it doesn't cause too much drowsiness, instructed to take bid until feeling better. instructed to rtc wed if no improvement or worsening symptoms. instructed patient to increase fluid intake as well. ICD-9 : 386.11 ICD-10 : H81.13 05/30/2017 Appointment: Jennifer Rosario [address] [place] [address] ACUTE ILLNESS 05/30/2017 Patient Education: Patient Medication Summary Completed 05/30/2017 Visit Diagnosis Plan: Left lower quadrant pain Discuss ion: Culture urine Notify if worsens ICD-9 : 789.04 ICD-10 : R10.32 04/18/2017 Visit Diagnosis Plan: Low back pain Discussion: Stretc hes Topical aspercreme Tylenol 1 po TID ICD-9 : 724.2 ICD-10 : M54.5 04/18/2017 Visit Diagnosis Plan: Radiculopathy, lumbosacral regio n Discussion: As above ICD-9 : 724.4 ICD-10 : M54.17 04/18/2017 Appointment: Vikki Guaman WPtel: [address] [place] [address] ACUTE ILLNESS 04/18/2017 Patient Education: Patient Medication Summary Completed 04/18/2017 Appointment: Vikki Guaman WPtel: [address] [place] [address] US INJECTION 12/10/2016 Patient Education: Patient Medication Summary Completed 12/10/2016 Appointment: Vikki Guaman WPtel: [address] [place] [address] US LAB 11/01/2016 Patient Education: Patient Medication Summary Completed 11/01/2016 Visit Diagnosis Plan: Pain in thoracic spine Discussio n: PT has helped Continue stretches and walking [facility]ed [facility] continue exercise ICD-9 : 724.1 ICD-10 : M54.6 10/25/2016 Visit Diagnosis Plan: Other intervertebral disc degene ration, lumbar region Follow Up: 3 months ICD-9 : 722.52 ICD-10 : M51.36 10/25/2016 Appointment: Vikki Guaman WPtel: [address] [place], [place] [phone] FOLLOW UP 10/25/2016 Patient Education: Patient Medication Summary Completed 10/25/2016 Visit Diagnosis Plan: Low back pain Discussion: Start PT for low back- Seems like abdominal pain is radiating from low back Follow Up: 5 weeks ICD-9 : 724.2 ICD-10 : M54.5 09/20/2016 Visit Diagnosis Plan: Left lower quadrant pain Discuss ion: Had CT scan of abdomen/pelvis in May 2016 and normal colonoscopy in December 2014 ICD-9 : 789.04 ICD-10 : R10.32 09/20/2016 Appointment: Vikki Guaman WPtel: [address] [place] [address] ACUTE ILLNESS 09/20/2016 Patient Education: Patient Medication Summary Completed 09/20/2016 Appointment: Vikki Guaamn WPtel: [address] [place] [address] US LAB 05/13/2016 Patient Education: Patient Medication Summary Completed 05/13/2016 Visit Diagnosis Plan: Mixed hyperlipidemia Discussion: Check lipids ICD-9 : 272.4 ICD-10 : E78.2 05/12/2016 Visit Diagnosis Plan: Impaired fasting glucose Discuss ion: Return in AM for CMP, HbA1C Accuchecks daily Diet/Exercise discussed at length ICD-9 : 790.29 ICD-10 : R73.01 05/12/2016 Visit Diagnosis Plan: Other fatigue Discussion: Check CBC, TSH ICD-9 : 780.79 ICD-10 : R53.83 05/12/2016 Visit Diagnosis Plan: Mastodynia Discussion: Check Maurice ateral diagnostic mammogram with US ICD-9 : 611.71 ICD-10 : N64.4 05/12/2016 Appointment: Vikki Guaman WPtel: [address] [place], [place] [phone] [place] 05/11 confirmed `sl ACUTE ILLNESS 05/12/2016 Patient Education: Patient Medication Summary Completed 05/12/2016 Care Plan: MAMMOGRAM SCREENING LOINC : 2 6347-5 Pending 05/12/2016 Visit Diagnosis Plan: Acute upper respiratory infectio n, unspecified Discussion: Exam is reassuring Likely viral illness Supportive care reviewed and encouraged Follow up PRN ICD-9 : 465.9 ICD-10 : J06.9 03/18/2016 Appointment: Griffin Yue [address] [place] [address] ACUTE ILLNESS 03/18/2016 Patient Education: Patient Medication Summary Completed 03/18/2016 Visit Plan: Supportive care. Rest, Fluid s, Tylenol/Motrin prn fever or bodyaches. Notify if worsening symptoms. 02/06/2016 Appointment: Vikki Guaman WPtel: [address] [place] [address] ACUTE ILLNESS 02/06/2016 Patient Education: Patient Medication Summary Completed 02/06/2016 Appointment: Vikki Guaman WPtel: [address] [place] [address] INJECTION 12/12/2015 Patient Education: Patient Medication Summary Completed 12/12/2015 Appointment: Vikki Guaman WPtel: [address] [place] [address] LAB 11/25/2015 Patient Education: Patient Medication Summary Completed 11/25/2015 Visit Plan: Add miralax daily Use daily probiotic and metamucil and push fluids Notify if worsens/persists 08/26/2015 Appointment: Vikki Guaman WPtel: [address] [place] [address] 08/25/15 confirmed ~sl ACUTE ILLNESS 08/26/2015 Patient Education: Patient Medication Summary Completed 08/26/2015 Visit Plan: No NSAIDs Kidney function di scussed Discussed hydration Monitor lab every 4months so will check CMP, HbA1C next month 05/21/2015 Appointment: Vikki Guaman WPtel: [address] [place], [place] [phone] 05/19 confirmed ~sl ACUTE ILLNESS 05/21/2015 Patient Education: Patient Medication Summary Completed 05/21/2015 Visit Plan: Vestibular exercises Refill flonase Strict low Na diet--discussed that needs to read labels Rx for walker with chair given due to muscle weakness/unsteadiness Has carotids and abdominal aorta and legs checked in March Check Chem 7 02/19/2015 Appointment: Vikki Guaman WPtel: [address] [place], [place] [phone] 02/18/15 appt confirmed cn FOLLOW UP 02/19 Patient Education: Patient Medication Summary Completed 02/19/2015 Patient Education: Vertigo Completed 1 04/22/2014 Appointment: Vikki Guaman WPtel: [address] [place], [place] [phone] INJECTION 12/20/2014 Patient Education: Patient Medication Summary Completed 12/20/2014 Appointment: Vikki Guaman WPtel: [address] [place], [place] [phone] UA 11/19/2014 Patient Education: Patient Medication Summary Completed 11/19/2014 Referral: Edy Cheek WPtel: #1 [facility] [address] Referral Completed 11/18/2014 Appointment: Vikki Guaman WPtel: [address] [place], [place] [phone] LAB 11/14/2014 Patient Education: Patient Medication Summary Completed 11/14/2014 Visit Plan: Check CMP, CBC, TSH, Free T4 , B12, Lipids, HbA1C Discussed 6 small meals a day each with protein Would likely benefit from antidepressant Update colonoscopy 11/13/2014 Appointment: Vikki Guaman WPtel: [address] [place], [place] [phone] 11/12/14 confirmed ACUTE ILLNESS 11/13/2014 Patient Education: Patient Medication Summary Completed 11/13/2014 Visit Plan: Cerumen flush with warm wate r and peroxide - good results Resume Nasonex nasal spray daily Recommended Debrox earwax removal drops 09/27/2014 Appointment: Jessenia Francis WPtel: [address] [place], [place] [phone] ACUTE ILLNESS 09/27/2014 Patient Education: Patient Medication Summary Completed 09/27/2014 Visit Plan: Continue aspirin daily Add m eloxicam for 1week Elevate and Ice Call on Tuesday07/11/2014 Appointment: Vikki Guaman WPtel: [address] [place], [place] [phone] ACUTE ILLNESS 07/11/2014 Patient Education: Patient Medication Summary Completed 07/11/2014 Visit Plan: Been using baclofen at [facility] and has helped some PT for next 2-4weeks 05/23/2014 Appointment: Vikki Guaman WPtel: [address] [place] [address] Follow Up 05/23/2014 Patient Education: Patient Medication Summary Completed 05/23/2014 Appointment: Vikki Guaman WPtel: [address] [place], [place] [phone] LAB 05/10/2014 Appointment: Vikki Guaman WPtel: [address] [place], [place] [phone] feeling better, weather - FOLLOW UP 04/07 Referral: Edy Cheek WPtel: 1 [facility] Referral Appointment Requested 04/03/2014 Visit Plan: Continue exercise and curren t meds See surgery for removal of right arm lesion 03/20/2014 Appointment: Vikki Guaman WPtel: [address] [place], [place] [phone] FOLLOW UP 03/20/2014 Patient Education: Patient Medication Summary Completed 03/20/2014 Appointment: Vikki Guaman WPtel: [address] [place], [place] [phone] US INJECTION 12/21/2013 Patient Education: Patient Medication Summary Completed 12/21/2013 Appointment: Jessenia Francis WPtel: [address] [place] [address] ACUTE ILLNESS 10/17/2013 Patient Education: Patient Medication Summary Completed 10/17/2013 Visit Plan: Discussed that likely lumbar etiology for leg weakness Will change amlodopine to low dose dyazide and see if helps legs and inner ear 09/24/2013 Appointment: Vikki Guaman WPtel: [address] [place] [address] FOLLOW UP 09/24/2013 Patient Education: Patient Medication Summary Completed 09/24/2013 Visit Plan: Ceftin and continue claritin /flonase Decrease amlodopine to 2.5mg q HS until fwup with Card due to weakness 05/31/2013 Appointment: Vikki Guaman WPtel: [address] [place] [address] ACUTE ILLNESS 05/31/2013 Patient Education: Patient Medication Summary Completed 05/31/2013 Appointment: Vikki Guaman WPtel: [address] [place] [address] LAB 03/28/2013 Patient Education: Patient Medication Summary Completed 03/28/2013 Appointment: Jessenia Francis WPtel: [address] [place] [address] ACUTE ILLNESS 03/26/2013 Patient Education: Patient Medication Summary Completed 03/26/2013 Visit Plan: Supportive care. Rest, Fluid s, Tylenol prn fever or bodyaches. Notify if worsening symptoms. Ceftin 12/19/2012 Appointment: Jessenia Francis WPtel: [address] [place] [address] ACUTE ILLNESS 12/19/2012 Patient Education: Patient Medication Summary Completed 12/19/2012 Appointment: Vikki Guaman WPtel: [address] [place] [address] BP CHECK 12/04/2012 Patient Education: Patient Medication Summary Completed 12/04/2012 Appointment: Vikki Guaman WPtel: [address] [place], [place] [phone] ER Follow UP 11/27/2012 Patient Education: Patient Medication Summary Completed 11/27/2012 Visit Plan: Restart flonase BID Use mecl izine 25mg q HS Vestibular exercises Claritin 10mg q AM See ENT if doesn't resolve 10/04/2012 Appointment: Vikki Guaman WPtel: [address] [place], [place] [phone] ACUTE ILLNESS 10/04/2012 Patient Education: Patient Medication Summary Completed 10/04/2012 Visit Plan: Will continue to observe 07/27/2012 Appointment: Vikki Guaman WPtel: [address] [place], [place] [phone] FOLLOW UP 07/27/2012 Patient Education: Patient Medication Summary Completed 07/27/2012 Visit Plan: ERx for Augmentin 875mg q12 x 10 days and Floxin otic drops 5 gtts AD x7days Sample of Nasonex per pt request Discussed treatment (nasal saline, salt water gargles, keeping right ear clean and dry, for worsening go to UC on weekend, Tylenol/ibuprofen, etc.) RTC 2 weeks for ear recheck. 07/14/2012 Appointment: Evelyn Santos WPtel: [address] [place], [place] [phone] ACUTE ILLNESS 07/14/2012 Patient Education: Patient Medication Summary Completed 07/14/2012 Visit Plan: Decrease caffeine intake Kristin ck Bilateral Mammogram with US of left breast 06/08/2012 Appointment: Vikki Guaman WPtel: [address] [place], [place] [phone] ACUTE ILLNESS 06/08/2012 Patient Education: Patient Medication Summary Completed 06/08/2012 Appointment: Alisia Campbell WPtel: [address] [place], [place] [phone] appt scheduled 04/06 ACUTE ILLNESS 04/10/2012 Appointment: Vikki Guaman WPtel: [address] [place], [place] [phone] LAB 02/23/2012 Patient Education: Patient Medication Summary Completed 02/23/2012 Visit Plan: Continue off carafate and se e how does Continue probiotic Add Vestibular exercises and use meclizine prn Continue Nasonex Check fasting lab including CMP, Lipids, CBC, TSH, Free T4, HbA1C 02/22/2012 Appointment: Vikki Guamantel: [address] [place] [address] FOLLOW UP 02/22/2012 Patient Education: Patient Medication Summary Completed 02/22/2012 Visit Plan: Continue carafate for 4more weeks at current dose then decrease to BID for 2wks then q HS 12/28/2011 Appointment: Vikki Guaman WPtel: [address] [place], [place] [phone] FOLLOW UP 12/28/2011 Patient Education: Patient Medication Summary Completed 12/28/2011 Visit Plan: Continue omeprazole Add Judi fate 1gm po q AC Add daily probiotic 12/15/2011 Appointment: Vikki Guaman WPtel: [address] [place] [address] ACUTE ILLNESS 12/15/2011 Patient Education: Patient Medication Summary Completed 12/15/2011 Appointment: Vikki Guamantel: [address] [place], [place] [phone] INJECTION 12/02/2011 Patient Education: Patient Medication Summary Completed 12/02/2011 Visit Plan: Diabetic Diet Accuchecks BID alternating times Hold onglyza and Januvia for now and continue diet and exercise and weight loss and moniter BS Discussed hypoglycemia and snack of peanut butter and crackers with juice or milk 09/21/2011 Appointment: Vikki Guamantel: [address] [place], [place] [phone] WORK IN 09/21/2011 Patient Education: Patient Medication Summary Completed 09/21/2011 Appointment: Vikki Guamantel: [address] [place], [place] [phone] UA 09/16/2011 Patient Education: Patient Medication Summary Completed 09/16/2011 Appointment: Vikki Guamantel: [address] [place] [address] LAB 09/15/2011 Patient Education: Patient Medication Summary Completed 09/15/2011 Appointment: Vikki Guaman WPtel: [address] [place] [address] ACUTE ILLNESS 09/13/2011 Patient Education: Patient Medication Summary Completed 09/13/2011 Visit Plan: Injection to Right SI joint as above Pt will call in 3 days on pain Has PT starting in 2wks. 08/16/2011 Appointment: Vikki Guaman WPtel: [address] [place] [address] ACUTE ILLNESS 08/16/2011 Patient Education: Patient Medication Summary Completed 08/16/2011 Visit Plan: OMT done Start PT May need u pdated MRI if need to consider epidural Prednisone 08/03/2011 Appointment: Vikki Guaman WPtel: [address] [place] [address] OMT 08/03/2011 Patient Education: Patient Medication Summary Completed 08/03/2011 Visit Plan: Flexeril and Vimovo OMT done Daily stretches 07/26/2011 Appointment: Vikki Guaman WPtel: [address] [place] [address] ACUTE ILLNESS 07/26/2011 Patient Education: Patient Medication Summary Completed 07/26/2011 Visit Plan: OMT done Daily stretches Roque st heat or biofreeze Right SI joint injection Call in 1week Vimovo BID 06/28/2011 Appointment: Vikki Guaman WPtel: [address] [place] [address] ACUTE ILLNESS 06/28/2011 Patient Education: Patient Medication Summary Completed 06/28/2011 Appointment: Vikki Guaman WPtel: [address] [place], [place] [id number] US LAB 04/01/2011 Patient Education: Patient Medication Summary Completed 04/01/2011 Visit Plan: Decrease amlodopine to 1.25m g daily Schedule with Cardiology Fasting lab in AM 03/31/2011 Appointment: Vikki Guamantel: [address] [place], [place] [phone] ACUTE ILLNESS 03/31/2011 Patient Education: Patient Medication Summary Completed 03/31/2011 Visit Plan: Saline nasal flushes prn. Ty lenol/Motrin prn headache. Notify if persists/symptoms worsening. Cerumen removal from ears as above 02/11/2011 Appointment: Vikki Guamantel: [address] [place] [address] ACUTE ILLNESS 02/11/2011 Patient Education: Patient Medication Summary Completed 02/11/2011 Appointment: Vikki Guaman WPtel: [address] [place] [address] US INJECTION 12/09/2010 Patient Education: Patient Medication Summary Completed 12/09/2010 Visit Plan: Continue vimovo for 1more we ek Increase Omeprazole to BID for 1mo then resume QD if stomach improved Vestibular exercises with meclizine q HS for next week 10/15/2010 Appointment: Vikki Guamantel: [address] [place], [place] [phone] FOLLOW UP 10/15/2010 Patient Education: Patient Medication Summary Completed 10/15/2010 Appointment: Vikki Guaman WPtel: [address] [place], [place] [id number] ACUTE ILLNESS 09/29/2010 Patient Education: Patient Medication Summary Completed 09/29/2010 Appointment: Vikki Guamantel: [address] [place], [place] [phone] US LAB 07/06/2010 Patient Education: Patient Medication Summary Completed 07/06/2010 Visit Plan: Saline nasal flushes prn. Ty lenol/Motrin prn headache. Notify if persists/symptoms worsening. Add Veramyst Increase Omeprazole to 20mg po BID 07/02/2010 Appointment: Vikki Guaman WPtel: [address] [place] [address] ACUTE ILLNESS 07/02/2010 Patient Education: Patient Medication Summary Completed 07/02/2010 Appointment: Vikki Guaman WPtel: [address] [place] [address] FOLLOW UP 04/06/2010 Patient Education: Patient Medication Summary Completed 04/06/2010 Appointment: Vikki Guaman WPtel: [address] [place] [address] ACUTE ILLNESS 04/01/2010 Patient Education: Patient Medication Summary Completed 04/01/2010 Visit Plan: Nasocourt sample given. Pt. will notify if symptoms are worse on Tuesday. 01/22/2010 Appointment: Alisia Campbell WPtel: [address] [place] [address] ACUTE ILLNESS 01/22/2010 Patient Education: Patient Medication Summary Completed 01/22/2010 Appointment: Vikki Guaman WPtel: [address] [place] [address] US INJECTION 12/10/2009 Patient Education: Patient Medication Summary Completed 12/10/2009 Appointment: Vikki Guaman WPtel: [address] [place] [address] FOLLOW UP 12/02/2009 Patient Education: Patient Medication Summary Completed 12/02/2009 Patient Education: Lexapro Completed 0 12/02/2009 Visit Plan: May proceed with hiatal ryan ia repair per Card. so will contact Dr. Mariscal's office to proceed with surgery Trial of Lexapro 5mg QD plus use xanax prn 10/21/2009 Appointment: Vikki Guaman WPtel: [address] [place] [address] FOLLOW UP 10/21/2009 Patient Education: Patient Medication Summary Completed 10/21/2009 Visit Plan: B12 given Cont oral B12 and iron Fwup 1mo for B12 Proceed with hiatal hernia repair once card clearance 09/10/2009 Appointment: Vikki Guaman WPtel: [address] [place] [address] US FOLLOW UP 09/10/2009 Patient Education: Patient Medication Summary Completed 09/10/2009 Appointment: Vikki Guaman WPtel: [address] [place] [address] US FOLLOW UP 08/11/2009 Patient Education: Patient Medication Summary Completed 08/11/2009 Appointment: Vikki Guaman WPtel: [address] [place] [address] US LAB 06/10/2009 Patient Education: Patient Medication Summary Completed 06/10/2009 Visit Plan: Check fasting lab in AM--CMP ,Lipids, CBC, Vit D, TSH,FreeT4, B12 06/09/2009 Appointment: Vikki Guaman WPtel: [address] [place] [address] FOLLOW UP 06/09/2009 Patient Education: Patient Medication Summary Completed 06/09/2009 Referral: Edy Cheek WPtel: [address] [place] [address] [place] Referral Appointment Requested Referral: Edy Cheek WPtel: [address] Referral Initiated Instructions Comment . Supportive care. Rest, Fluids, Tyleno l/Motrin prn fever or bodyaches. Notify if worsening symptoms. . Add miralax daily Use daily probiotic and metamucil and push fluids Notify if worsens/persists . No NSAIDs Kidney function discussed Discussed hydration Monitor lab every 4months so will check CMP, HbA1C next month . Vestibular exercises Refill flonase Strict low Na diet--discussed that needs to read labels Rx for walker with chair given due to muscle weakness/unsteadiness Has carotids and abdominal aorta and legs checked in March Check Chem 7 . Check CMP, CBC, TSH, Free T4, B12, Lip ids, HbA1C Discussed 6 small meals a day each with protein Would likely benefit from antidepressant Update colonoscopy . Cerumen flush with warm water and star xide - good results Resume Nasonex nasal spray daily Recommended Debrox earwax removal drops . Continue aspirin daily Add meloxicam for 1week Elevate and Ice Call on Tuesday . Been using baclofen at bedtime and has helped some PT for next 2-4weeks . Continue exercise and current meds See surgery for removal of right arm lesion . Discussed that likely lumbar etiology for leg weakness Will change amlodopine to low dose dyazide and see if helps legs and inner ear . Ceftin and continue claritin/flonase Decrease amlodopine to 2.5mg q HS until fwup with Card due to weakness . Supportive care. Rest, Fluids, Tylen ol prn fever or bodyaches. Notify if worsening symptoms. Ceftin . Restart flonase BID Use meclizine 25mg q HS Vestibular exercises Claritin 10mg q AM See ENT if doesn't resolve . Will continue to observe . ERx for Augmentin 875mg q12 x 10 days and Floxin otic drops 5 gtts AD x7days Sample of Nasonex per pt request Discussed treatment (nasal saline, salt water gargles, keeping right ear clean and dry, for worsening go to UC on weekend, Tylenol/ibuprofen, etc.) RTC 2 weeks for ear recheck. . Decrease caffeine intake Check Bilateral Mammogram with US of left breast Left ear flushed with warm water and per oxide with ear syringe and then last removed with currette--peroxide drops instilled. Tolerated well, no complications, TM intact.. Continue off carafate and see how does Continue probiotic Add Vestibular exercises and use meclizine prn Continue Nasonex Check fasting lab including CMP, Lipids, CBC, TSH, Free T4, HbA1C . Continue carafate for 4more weeks at c urrent dose then decrease to BID for 2wks then q HS . Continue omeprazole Add Carafate 1gm po q AC Add daily probiotic . Diabetic Diet Accuchecks BID alternating times Hold onglyza and Januvia for now and continue diet and exercise and weight loss and moniter BS Discussed hypoglycemia and snack of peanut butter and crackers with juice or milk Informed Consent obtainded. Right SI markell int cleansed with alcohol and betadine and injected with 3cc 1%l lidocaine with 40mg depomedrol and 40mg kenalog, tolerated well with no complications, neosporin and bandage applied. Injection to Right SI joint as above Pt will call in 3 days on pain Has PT starting in 2wks. . OMT done Start PT May need updated MRI if need to consider epidural Prednisone . Flexeril and Vimovo OMT done Daily stretches Right SI joint cleansed with alchohol an d betadine and injected with 3cc 1% lidocaine with 40mg depomedrol and 40mg kenalog, tolerated well with no complications, neosporin and bandage applied. OMT done Daily stretches Moist heat or biofreeze Right SI joint injection Call in 1week Vimovo BID . Decrease amlodopine to 1.25mg daily Schedule with Cardiology Fasting lab in AM . Saline nasal flushes prn. Tylenol/Mot rin prn headache. Notify if persists/symptoms worsening. Cerumen removal from ears as above . Continue vimovo for 1more week Increase Omeprazole to BID for 1mo then resume QD if stomach improved Vestibular exercises with meclizine q HS for next week . Saline nasal flushes prn. Tylenol/Motr in prn headache. Notify if persists/symptoms worsening. Add Veramyst Increase Omeprazole to 20mg po BID . Nasocourt sample given. Pt. will noti fy if symptoms are worse on Tuesday. . May proceed with hiatal hernia repair per Card. so will contact Dr. Mariscal's office to proceed with surgery Trial of Lexapro 5mg QD plus use xanax prn . B12 given Cont oral B12 and iron Fwup 1mo for B12 Proceed with hiatal hernia repair once card clearance . Check fasting lab in AM--CMP,Lipids, C BC, Vit D, TSH,FreeT4, B12 Medical Equipment No Medical Equipment data Health Concerns Section Health Concerns data not found Goals Section Goals data not found Interventions Section Interventions data not found Health Status Evaluations/Outcomes Section Health Status Evaluations/Outcomes data not found Advance Directives No Advance Directive data
--- OUTSIDE RECORDS SUMMARY | 2019-04-25 20:15 | XMS REPORT | CCD ---
Author Author Evelyne Guaman D.O. Organization [facility] Address [address] [place] [address] Phone Care Team Providers Care Associate Creative Director Name Role Phone Vikki Guaman D.O. PP Unavailable CCM Unavailable Summary Purpose Interface Exchange Insurance Providers Payer name Policy type / Coverage type Covered democrat ID Effective Begin Date Effective End Date WPS MEDICARE PART B [place] Medicare Part B [id number] Unknown [facility] Medicare Part B [id number] Unknown Family history Father Diagnosis Age At Onset Heart disease Unknown Mother Diagnosis Age At Onset Heart disease Unknown Cancer Unknown Social History Social History Element Codes Description Effective Dates Tobacco history SNOMED CT: 596747410 Never smoker 09/29/2010 Marital status Unknown Single [...] R10.13 11/22/2017 Active 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: [...] Start Date Stop Date Status Fill Instructions metoprolol tartrate 25 mg tablet RxNorm: 313706 1 Table t(s) Oral QAM and two tablets (50mg) in the evening--clarification/dose change 04/03/2019 Active Flonase Allergy Relief 50 mcg/actuation nasal spray,suspensi on RxNorm: 5375907 2 [place] Nasal every night at bedtime 03/30/2019 03/30/2019 Inactive simvastatin 40 mg tablet RxNorm: 251380 1 Tablet(s) Oral QD 020 12/24/2019 Active omeprazole 40 mg capsule,delayed release RxNorm: 144542 1 Capsu le(s) Oral QD 03/30/2019 12/24/2019 Active isosorbide mononitrate ER 30 mg tablet,extended release 24 h r RxNorm: 978606 1 Tablet(s) Oral every night at bedtime 03/30/2019 12/25/2019 Active metoprolol tartrate 25 mg tablet RxNorm: 760366 1 Table t(s) Oral QAM and two tablets (50mg) in the evening 03/30/2019 04/02/2019 Inactive omeprazole 40 mg capsule,delayed release RxNorm: 934860 1 Capsu le(s) Oral QD 03/27/2019 03/29/2019 Inactive Xanax 0.25 mg tablet RxNorm: 174426 TAKE 1 TABLET BY [facility] TWICE DAILY 1 Tablet(s) Oral two times a day as needed as needed for anxiety 03/27/2019 03/27/2019 Inactive simvastatin 40 mg tablet RxNorm: 920884 1 Tablet(s) Oral QD 020 03/29/2019 Inactive metoprolol tartrate 25 mg tablet RxNorm: 540642 1 Table t(s) Oral QAM and two tablets (50mg) in the evening 03/27/2019 03/29/2019 Inactive metoprolol tartrate 25 mg tablet RxNorm: 188901 1 Table t(s) Oral QAM and two tablets (50mg) in the evening 03/20/2019 03/26/2019 Inactive Flonase Allergy Relief 50 mcg/actuation nasal spray,suspensi on RxNorm: 8236277 2 [place] Nasal every night at bedtime 03/13/2019 03/13/2019 Inactive simvastatin 40 mg tablet RxNorm: 483072 1 Tablet(s) PO QD 01/22/2019 03/26/2019 Inactive omeprazole 40 mg capsule,delayed release RxNorm: 094181 1 Capsu le(s) Oral QD 01/10/2019 03/26/2019 Inactive Xanax 0.25 mg tablet RxNorm: 932040 TAKE 1 TABLET BY MOUTH TWIC E DAILY 01/02/2019 03/26/2019 Inactive omeprazole 40 mg capsule,delayed release RxNorm: 938702 1 Capsu le(s) PO QD 12/11/2018 01/09/2019 Inactive metoprolol tartrate 25 mg tablet RxNorm: 485467 1 Tablet(s) PO BID 11/20/2018 03/19/2019 Inactive omeprazole 40 mg capsule,delayed release RxNorm: 543053 1 Capsu le(s) PO QD 11/13/2018 12/10/2018 Inactive Flonase Allergy Relief 50 mcg/actuation nasal spray,suspensi on RxNorm: 8788796 2 [place] NASAL QHS 11/07/2018 03/12/2019 Inactive simvastatin 40 mg tablet RxNorm: 888514 1 Tablet(s) PO QD 10/23/2018 01/20/2019 Inactive simvastatin 40 mg tablet RxNorm: 323903 1 Tablet(s) PO QD 07/24/2018 10/21/2018 Inactive omeprazole 40 mg capsule,delayed release RxNorm: 127362 1 Capsu le(s) PO QD 07/13/2018 11/09/2018 Inactive simvastatin 40 mg tablet RxNorm: 296884 1 Tablet(s) PO QD 06/13/2018 07/12/2018 Inactive omeprazole 40 mg capsule,delayed release RxNorm: 670433 1 Capsu le(s) PO QD 06/13/2018 07/12/2018 Inactive Bactrim DS 800 mg-160 mg tablet RxNorm: 570639 1 Tablet(s) PO BID 0 05/12/2018 05/18/2018 Inactive Bactrim DS 800 mg-160 mg tablet RxNorm: 794027 1 Tablet(s) PO BID 0 05/12/2018 05/11/2018 Inactive Macrobid 100 mg capsule RxNorm: 090533 1 Capsule(s) PO BID 05/11/1905/16/2018 Inactive metoprolol tartrate 25 mg tablet RxNorm: 165443 1 Tablet(s) PO BID 05/10/2018 11/05/2018 Inactive Xanax 0.25 mg tablet RxNorm: 184199 TAKE 1 TABLET BY MOUTH TWIC E DAILY 02/16/2018 01/01/2019 Inactive Xanax 0.25 mg tablet RxNorm: 442708 1 Tablet(s) PO BID 02/14/2018 Inactive Protonix 40 mg tablet,delayed release RxNorm: 310337 1 Tablet(s) PO BID for stomach--replaces omeprazole 01/10/2018 05/09/2018 Inactive Carafate 1 gram tablet RxNorm: 847881 1 Tablet(s) PO AC & HS 201705/09/2018 Inactive Xanax 0.25 mg tablet RxNorm: 918937 1 Tablet(s) PO BID 01/03/201812/2017 Inactive Bactrim DS 800 mg-160 mg tablet RxNorm: 319066 1 Tablet(s) PO BID 1 12/12/2017 Inactive Bactrim DS 800 mg-160 mg tablet RxNorm: 287880 1 Tablet(s) PO BID 1 12/07/2017 Inactive Carafate 1 gram tablet RxNorm: 260021 1 Tablet(s) PO AC & HS 201712/21/2017 Inactive Protonix 40 mg tablet,delayed release RxNorm: 765707 1 Tablet(s) PO BID for stomach--replaces omeprazole 11/22/2017 01/09/2018 Inactive Protonix 40 mg tablet,delayed release RxNorm: 810009 1 Tablet(s) PO BID for stomach--replaces omeprazole 10/20/2017 11/21/2017 Inactive fluticasone 50 mcg/actuation nasal spray,suspension RxNorm: 5300887 2 [place] NASAL QD to each nostril 07/07/2017 08/13/2018 Inactive Nasonex 50 mcg/actuation [place] RxNorm: 3937483 2 [place] NASAL 201707/07/2017 Inactive omeprazole 40 mg capsule,delayed release RxNorm: 475417 1 Capsu le(s) PO QD 04/18/2017 10/19/2017 Inactive simvastatin 40 mg tablet RxNorm: 681616 1 Tablet(s) PO QD TAKE 1 TABLET EVERY DAY 04/18/2017 04/12/2018 Inactive metoprolol tartrate 25 mg tablet RxNorm: 191889 1/2 Tablet(s) PO QD 04/18/2017 01/09/2018 Inactive simvastatin 40 mg tablet RxNorm: 244762 Tablet(s) TAKE 1 TABLET EVERY DAY 10/27/2016 04/17/2017 Inactive metoprolol tartrate 25 mg tablet RxNorm: 741535 1/2 Tablet(s) PO QD 09/20/2016 03/18/2017 Inactive Flonase 50 mcg/actuation nasal spray,suspension RxNorm: 1797 933 2 [place] NASAL BID 09/20/2016 04/17/2017 Inactive omeprazole 40 mg capsule,delayed release RxNorm: 852332 1 Capsu le(s) PO QD 09/08/2016 04/17/2017 Inactive metoprolol tartrate 25 mg tablet RxNorm: 104979 1/2 Tablet(s) PO QD 06/14/2016 09/19/2016 Inactive ciprofloxacin 0.2 % ear drops in a dropperette RxNorm: 77619 6 4 Drop(s) OTIC TID for 1 week 02/06/2016 05/11/2016 Inactive cefdinir 300 mg capsule RxNorm: 746605 2 Capsule(s) PO QD 02/06/2016 02/15/2016 Inactive omeprazole 40 mg capsule,delayed release RxNorm: 181194 TAKE 1 CAPSULE EVERY DAY 11/06/2015 09/08/2016 Inactive simvastatin 40 mg tablet RxNorm: 984989 TAKE 1 TABLET EVERY DAY 05/201510/27/2016 Inactive Flonase 50 mcg/actuation nasal spray,suspension RxNorm: 1797 933 2 [place] NASAL BID 02/19/2015 09/19/2016 Inactive cefuroxime axetil 250 mg tablet RxNorm: 154629 1 Tablet(s) PO BID 0 11/21/2014 11/20/2014 Inactive cefuroxime axetil 250 mg tablet RxNorm: 113590 1 Tablet(s) PO BID 0 11/21/2014 11/27/2014 Inactive omeprazole 40 mg capsule,delayed release RxNorm: 448412 1 Capsu le(s) PO QD 10/09/2014 01/05/2015 Inactive meloxicam 7.5 mg tablet RxNorm: 576727 1 Tablet(s) PO QD 07/11/2014 0 08/09/2014 Inactive loratadine 10 mg tablet RxNorm: 749724 1 Tablet(s) PO QAM for a llergies 10/17/2013 08/13/2018 Inactive Flonase 50 mcg/actuation nasal spray,suspension RxNorm: 8963 23 2 [place] NASAL BID 10/17/2013 02/18/2015 Inactive prednisone 20 mg tablet RxNorm: 819970 2 Tablet(s) PO BID 10/17/2013 10/21/2013 Inactive Dyazide 37.5 mg-25 mg capsule RxNorm: 510875 1 Capsule(s) PO QAM 10/16/2013 Inactive Ceftin 500 mg tablet RxNorm: 853002 1 Tablet(s) PO BID 05/31/201307/2013 Inactive Ceftin 500 mg tablet RxNorm: 447872 1 Tablet(s) PO BID 03/26/2013 Inactive simvastatin 40 mg tablet RxNorm: 521266 Tablet(s) PO TA KE ONE TABLET BY MOUTH EVERY DAY 03/26/2013 10/07/2015 Inactive metoprolol tartrate 25 mg tablet RxNorm: 334299 Tablet( s) PO TAKE ONE-HALF TABLET BY MOUTH EVERY DAY 03/26/2013 11/12/2014 Inactive Ceftin 500 mg tablet RxNorm: 239642 1 Tablet(s) PO BID 12/19/2012 Inactive loratadine 10 mg tablet RxNorm: 960757 1 Tablet(s) PO QAM for a llergies 10/04/2012 12/02/2012 Inactive omeprazole 20 mg capsule,delayed release RxNorm: 114127 Capsule(s) PO TAKE ONE CAPSULE BY MOUTH TWICE DAILY 08/09/2012 10/08/2014 Inactive omeprazole 20 mg capsule,delayed release RxNorm: 595629 1 Capsu le(s) PO BID 08/09/2012 05/09/2018 Inactive Augmentin 875 mg-125 mg tablet RxNorm: 548325 1 Tablet(s) PO Q12H 0 07/14/2012 07/23/2012 Inactive Floxin Otic Drops 1 bottle Drops RxNorm: 5 Drop(s) OTIC BID 07/20/2012 Inactive metoprolol tartrate 25 mg tablet RxNorm: 387628 Tablet( s) PO TAKE ONE-HALF TABLET BY MOUTH EVERY DAY 04/11/2012 03/25/2013 Inactive simvastatin 40 mg tablet RxNorm: 333118 Tablet(s) PO TA KE ONE TABLET BY MOUTH EVERY DAY 04/11/2012 03/25/2013 Inactive lancets RxNorm: Misc Miscellaneous USE ONE TO CH JEFFERY GLUCOSE EVERY DAY 04/04/2012 05/09/2018 Inactive Carafate 1 gram tablet RxNorm: 195776 1 Tablet(s) PO AC & HS 201111/12/2014 Inactive Flagyl 500 mg tablet RxNorm: 079326 1 Tablet(s) PO TID 12/15/2011 Inactive Carafate 1 gram tablet RxNorm: 163569 1 Tablet(s) PO AC & HS 201102/12/2012 Inactive One Touch Test strips RxNorm: Miscellaneous QD 09/21/2011 05/09/2018 Inactive one touch ultra mini test strips Protonix 40 mg Tab RxNorm: 567426 1 Tablet(s) PO QD 09/13/20112011 Inactive Protonix 40 mg Tab RxNorm: 532304 1 Tablet(s) PO QD 09/13/20112011 Inactive prednisone 20 mg Tab RxNorm: 291580 1 Tablet(s) PO BID 08/03/201106/2011 Inactive Flexeril 5 mg Tab RxNorm: 680988 1 Tablet(s) PO QHS for spasm 07/2508/24/2011 Inactive Flexeril 5 mg Tab RxNorm: 363726 1 Tablet(s) PO QHS for spasm 06/2707/25/2011 Inactive amlodipine 2.5 mg Tab RxNorm: 303808 1/2 Tablet(s) PO QD replac es 5mg dose 03/31/2011 06/27/2011 Inactive simvastatin 40 mg tablet RxNorm: 752484 1 Tablet(s) PO QD 03/31/2011 03/24/2012 Inactive metoprolol tartrate 25 mg tablet RxNorm: 418587 1/2 Tablet(s) PO QD 03/31/2011 03/24/2012 Inactive omeprazole 20 mg capsule,delayed release RxNorm: 479955 1 Capsu le(s) PO BID 03/31/2011 09/12/2011 Inactive cefdinir 300 mg Cap RxNorm: 408758 2 Capsule(s) PO QD 02/11/201102/04 Inactive simvastatin 40 mg Tab RxNorm: 910514 1 Tablet(s) PO QD 02/01/2011 Inactive metoprolol tartrate 25 mg Tab RxNorm: 291183 1/2 Tablet(s) PO QD 03/30/2011 Inactive metoprolol tartrate 25 mg Tab RxNorm: 643142 1/2 Tablet(s) PO QD 12/28/2010 Inactive meclizine 25 mg Tab RxNorm: 8966109 1 Tablet(s) PO QHS 10/15/201011/2010 Inactive for dizziness Ceftin 500 mg Tab RxNorm: 154100 1 Tablet(s) PO BID 07/02/20102010 Inactive omeprazole 20 mg Cap, Delayed Release RxNorm: 346384 1 Capsule( s) PO BID 07/02/2010 12/28/2010 Inactive simvastatin 40 mg Tab RxNorm: 883952 1 Tablet(s) PO QD 06/30/201007/2018 Inactive simvastatin 40 mg Tab RxNorm: 795113 1 Tablet(s) PO QD 06/30/2010 Inactive simvastatin 40 mg Tab RxNorm: 191241 1 Tablet(s) PO QD 02/25/2010 Inactive Tessalon Perles 100 mg Cap RxNorm: 427635 1 Capsule(s) PO Q6-8H 01/28/2010 Inactive cefdinir 300 mg Cap RxNorm: 216050 1 Capsule(s) PO BID 01/22/2010 Inactive Lexapro 10 mg Tab RxNorm: 320362 1 Tablet(s) PO QD 12/02/2009 010 Inactive Cipro 250 mg Tab RxNorm: 646036 1 Tablet(s) PO BID 12/02/2009 010 Inactive Wellbutrin XL 150 mg 24 hr Tab RxNorm: 279292 1 Tablet(s) PO QAM 08/07/2009 Inactive Fish Oil 1,000 mg Cap RxNorm: 1 Capsule(s) PO QD No Start Date Active Tylenol Extra Strength 500 mg tablet RxNorm: 385728 1/2 Tablet( s) PO as needed No Start Date Active nitroglycerin 0.4 mg sublingual tablet RxNorm: 647368 Tablet(s) SL as needed No Start Date Active Calcium with Vitamin D 600 mg (1,500 mg)-400 unit tablet RxN orm: 475592 1 Tablet(s) PO QD No Start Date Active Multivitamin & Mineral Formula Tab RxNorm: 1 Tablet(s) PO QD No St art Date Active vitamin B complex capsule RxNorm: 1 Capsule(s) PO QD No Start Date Active Aspirin 81 mg Tab RxNorm: 095719 1 Tablet(s) PO QD No Start Date Active Vitamin D 1,000 unit Cap RxNorm: 840369 1 Capsule(s) PO QD No Start D ate Active Co Q-10 oral RxNorm: 07503 oral No Start Date Active metoprolol tartrate 25 mg Tab RxNorm: 671533 1/2 Tablet(s) PO QD No Start Date 12/27/2010 Inactive Nasonex 50 mcg/actuation [place] RxNorm: 2452905 2 [place] NASAL No Sta rt Date 07/06/2017 Inactive Vitamin B12 1000mcg Tablet RxNorm: 1 Tablet(s) PO QD No Start Date 11/12/2014 Inactive amlodipine 5 mg Tab RxNorm: 354210 1 Tablet(s) PO QD No Start Date Inactive simvastatin 40 mg tablet RxNorm: 230757 1 Tablet(s) PO QD No Start Date 06/12/2018 Inactive omeprazole 20 mg capsule,delayed release RxNorm: 284767 1 Capsu le(s) PO BID No Start Date 08/08/2012 Inactive omeprazole 40 mg capsule,delayed release RxNorm: 412896 1 Capsu le(s) PO QD No Start Date 06/12/2018 Inactive Nexium 40 mg Cap RxNorm: 484061 1 Capsule(s) PO QD No Start Date 01/05 Inactive Stool Softener 100 mg Tab RxNorm: 5745198 2 Tablet(s) PO BID No Sta rt Date 03/30/2011 Inactive Calcium with Vitamin D 600 mg (1,500 mg)-400 unit Tab RxNorm : 098352 1 Tablet(s) PO QD No Start Date 11/12/2014 Inactive iron 325 mg (65 mg iron) Tab RxNorm: 109598 1 Tablet(s) PO QD No St art Date 11/12/2014 Inactive Flonase 50 mcg/actuation Nasal [place] RxNorm: 114545 2 [place] DEMOND AL BID No Start Date 10/16/2013 Inactive fluticasone 50 mcg/actuation nasal spray,suspension RxNorm: 9492743 2 [place] NASAL QD to each nostril No Start Date 07/06/2017 Inactive Nasonex 50 mcg/actuation [place] RxNorm: 2995226 2 [place] NASAL QD No Start Date 07/06/2017 Inactive hydralazine 50 mg tablet RxNorm: 576459 1 Tablet(s) PO as needed for BP over 160/90 No Start Date 11/21/2017 Inactive Vimovo 500 mg-20 mg 12 hr Tab RxNorm: 466580 1 Tablet(s) PO BID No Start Date 02/10/2011 Inactive Tylenol PM 25 mg-500 mg/15 mL Oral Soln RxNorm: 4169836 1 PO QPM No Start Date 11/12/2014 Inactive Iron (Ferrous Sulfate) Oral RxNorm: Oral No Start Date 03/30/19 12 Inactive Reglan 10 mg Tab RxNorm: 995108 1 Tablet(s) PO TID before meals No Start Date 02/10/2011 Inactive Xanax 1 mg Tab RxNorm: 448705 1/2 Tablet(s) PO QD No Start Date 11/21 Inactive amlodipine 10 mg tablet RxNorm: 535468 1 Tablet(s) PO QD No Start D ate 09/23/2013 Inactive Iron (dried) Oral RxNorm: Oral No Start Date 03/30/2011 Inactiv e metoprolol tartrate 50 mg tablet RxNorm: 371009 1 Tablet(s) PO BID No Start Date 02/13/2018 Inactive Xanax 0.25 mg tablet RxNorm: 675526 1 Tablet(s) PO BID No Start Date 01/02/2018 Inactive lancets RxNorm: Miscellaneous check blood sugar at least once daily No Start Date 04/03/2012 Inactive simvastatin 40 mg Tab RxNorm: 835277 1 Tablet(s) PO QD No Start Date 02/24/2010 Inactive isosorbide mononitrate ER 30 mg tablet,extended release 24 h r RxNorm: 439294 1 Tablet(s) PO QHS No Start Date 08/13/2018 Inactive amlodipine 2.5 mg tablet RxNorm: 722717 1 Tablet(s) PO QD No Start Date 09/23/2013 Inactive isosorbide mononitrate ER 30 mg tablet,extended release 24 h r RxNorm: 880114 1 Tablet(s) PO QHS No Start Date 03/29/2019 Inactive sucralfate 1 gram tablet RxNorm: 910754 1 Tablet(s) PO QID No Start Date 05/09/2018 Inactive Fish Oil Oral RxNorm: Oral No Start Date 03/31/2011 Inactive Multiple Vitamin Oral RxNorm: Oral No Start Date 03/31/2011 Franny ctive metoprolol tartrate 25 mg tablet RxNorm: 303526 1/2 Tablet(s) P O QD No Start Date 06/13/2016 Inactive metoprolol tartrate 50 mg tablet RxNorm: 438926 1/2 Tablet(s) P O BID No Start Date 05/09/2018 Inactive Flonase Allergy Relief 50 mcg/actuation nasal spray,suspensi on RxNorm: 0357462 2 [place] NASAL QHS No Start Date 11/06/2018 Inactive [...] Code Item Item Code Result Date S vice Location COMPLETE BLOOD COUNT [id number] WBC 7.1 10e9/L 03/13/19 20 Unknown COMPLETE BLOOD COUNT [id number] RBC 4.16 10e12/L 2019 Unknown COMPLETE BLOOD COUNT [id number] HEMOGLOBIN 12.4 g/dL 03/13/19 Unknown COMPLETE BLOOD COUNT [id number] HEMATOCRIT 39.3 % 03/13/19 20 Unknown COMPLETE BLOOD COUNT [id number] MCV 94.5 fL 0 Unknown COMPLETE BLOOD COUNT [id number] MCH 29.8 pg 0 Unknown COMPLETE BLOOD COUNT [id number] MCHC 31.6 g/dL 0 Unknown COMPLETE BLOOD COUNT [id number] PLATELET COUNT 161 10e9/L 09/2019 Unknown COMPLETE BLOOD COUNT [id number] Mean Plt Volume 10.8 fL 09/2019 Unknown COMPLETE BLOOD COUNT [id number] Neut Auto 38.7 % 0 Unknown COMPLETE BLOOD COUNT [id number] Lymph Auto 48.0 % 03/13/19 Unknown COMPLETE BLOOD COUNT [id number] [place] Auto 9.5 % 0 Unknown COMPLETE BLOOD COUNT [id number] RDW 13.5 % 0 Unknown COMPLETE BLOOD COUNT [id number] Eos Auto 3.2 % 0 Unknown COMPLETE BLOOD COUNT [id number] Baso Auto 0.6 % 0 Unknown COMPLETE BLOOD COUNT [id number] Neutrophil Abs 2.75 10e9/L Unknown COMPLETE BLOOD COUNT [id number] Lymphocyte Abs 3.41 10e9/L Unknown COMPLETE BLOOD COUNT [id number] Monocyte Abs 0.67 10e9/L 09/2019 Unknown COMPLETE BLOOD COUNT [id number] Eosinophil Abs 0.23 10e9/L Unknown COMPLETE BLOOD COUNT [id number] RDW-SD 44.7 fL 0 Unknown COMPLETE BLOOD COUNT [id number] Basophil Abs 0.04 10e9/L 09/2019 Unknown THYROID STIMULATING HORMONE 18150 TSH 1.677 uIU/mL 03/13/2019 Unknown COMPREHENSIVE METABOLIC 03520 AST 19 U/L 2019 Unknown COMPREHENSIVE METABOLIC 27207 ALT 12 U/L 2019 Unknown COMPREHENSIVE METABOLIC 99922 BUN 17 mg/dL 2019 Unknown COMPREHENSIVE METABOLIC 07740 ALBUMIN 4.2 g/dL 2019 Unknown COMPREHENSIVE METABOLIC 83706 CHLORIDE 103 mmol/L 03/13 Unknown COMPREHENSIVE METABOLIC 77373 Bili Total 0.2 mg/dL 03/13 Unknown COMPREHENSIVE METABOLIC 60509 ALK PHOS 61 U/L 2019 Unknown COMPREHENSIVE METABOLIC 71774 SODIUM 140 mmol/L 03/13 Unknown COMPREHENSIVE METABOLIC 90560 CREATININE 0.95 mg/dL 09/2019 Unknown COMPREHENSIVE METABOLIC 14557 CALCIUM 9.4 mg/dL 2019 Unknown COMPREHENSIVE METABOLIC 24196 POTASSIUM 4.2 mmol/L 03/13 Unknown COMPREHENSIVE METABOLIC 71972 Total Protein 6.5 g/dL Unknown COMPREHENSIVE METABOLIC 62831 Glucose 103 mg/dL 2019 Unknown COMPREHENSIVE METABOLIC 35106 Bicarbonate 26 mmol/L 09/2019 Unknown COMPREHENSIVE METABOLIC 03808 AGAP 11 mmol/L 2019 Unknown GFR CALC [id number] GFR Non Afr Amr 57 mL/min 03/13/2019 Unk nown GFR CALC [id number] GFR Afr Amr >60 mL/min 03/13/2019 Unknow n GFR CALC [id number] GFR Non Afr Amr 52 mL/min 12/15/2018 Unk nown GFR CALC [id number] GFR Afr Amr >60 mL/min 12/15/2018 Unknow n COMPREHENSIVE METABOLIC 39794 AST 17 U/L 2018 Unknown COMPREHENSIVE METABOLIC 71702 ALT 11 U/L 2018 Unknown COMPREHENSIVE METABOLIC 45195 BUN 17 mg/dL 2018 Unknown COMPREHENSIVE METABOLIC 25132 ALBUMIN 3.9 g/dL 2018 Unknown COMPREHENSIVE METABOLIC 42790 CHLORIDE 108 mmol/L 12/15 Unknown COMPREHENSIVE METABOLIC 45777 Bili Total 0.5 mg/dL 12/15 Unknown COMPREHENSIVE METABOLIC 92420 ALK PHOS 72 U/L 2018 Unknown COMPREHENSIVE METABOLIC 84251 SODIUM 142 mmol/L 12/15 Unknown COMPREHENSIVE METABOLIC 74124 CREATININE 1.02 mg/dL 12/05 Unknown COMPREHENSIVE METABOLIC 30379 CALCIUM 9.3 mg/dL 2018 Unknown COMPREHENSIVE METABOLIC 29433 POTASSIUM 4.0 mmol/L 12/15 Unknown COMPREHENSIVE METABOLIC 85074 Total Protein 6.2 g/dL Unknown COMPREHENSIVE METABOLIC 81833 Glucose 93 mg/dL 2018 Unknown COMPREHENSIVE METABOLIC 27318 Bicarbonate 27 mmol/L 12/05 Unknown COMPREHENSIVE METABOLIC 35900 AGAP 7 mmol/L 2018 Unknown GFR CALC [id number] GFR Non Afr Amr 48 mL/min 08/14/2018 Unk nown GFR CALC [id number] GFR Afr Amr 59 mL/min 08/14/2018 Unknown THYROID STIMULATING HORMONE 90195 TSH 1.936 uIU/mL 08/14/2018 Unknown COMPREHENSIVE METABOLIC 41677 AST 18 U/L 2018 Unknown COMPREHENSIVE METABOLIC 05226 ALT 11 U/L 2018 Unknown COMPREHENSIVE METABOLIC 77384 BUN 18 mg/dL 2018 Unknown COMPREHENSIVE METABOLIC 40255 ALBUMIN 4.2 g/dL 2018 Unknown COMPREHENSIVE METABOLIC 70342 CHLORIDE 109 mmol/L 08/14 Unknown COMPREHENSIVE METABOLIC 81048 Bili Total 0.4 mg/dL 08/14 Unknown COMPREHENSIVE METABOLIC 18302 ALK PHOS 64 U/L 2018 Unknown COMPREHENSIVE METABOLIC 82630 SODIUM 142 mmol/L 08/14 Unknown COMPREHENSIVE METABOLIC 00830 CREATININE 1.09 mg/dL 08/05 Unknown COMPREHENSIVE METABOLIC 95911 CALCIUM 9.3 mg/dL 2018 Unknown COMPREHENSIVE METABOLIC 71812 POTASSIUM 4.7 mmol/L 08/14 Unknown COMPREHENSIVE METABOLIC 91517 Total Protein 6.3 g/dL Unknown COMPREHENSIVE METABOLIC 46795 Glucose 84 mg/dL 2018 Unknown COMPREHENSIVE METABOLIC 99965 Bicarbonate 25 mmol/L 08/05 Unknown COMPREHENSIVE METABOLIC 29617 AGAP 8 mmol/L 2018 Unknown COMPLETE BLOOD COUNT [id number] WBC 7.8 10e9/L 08/15/19 19 Unknown COMPLETE BLOOD COUNT [id number] RBC 4.04 10e12/L 2018 Unknown COMPLETE BLOOD COUNT [id number] HEMOGLOBIN 12.2 g/dL 08/15/19 19 Unknown COMPLETE BLOOD COUNT [id number] HEMATOCRIT 38.6 % 08/15/19 19 Unknown COMPLETE BLOOD COUNT [id number] MCV 95.5 fL 9 Unknown COMPLETE BLOOD COUNT [id number] MCH 30.2 pg 9 Unknown COMPLETE BLOOD COUNT [id number] MCHC 31.6 g/dL 9 Unknown COMPLETE BLOOD COUNT [id number] PLATELET COUNT 215 10e9/L 12/2018 Unknown COMPLETE BLOOD COUNT [id number] Mean Plt Volume 11.2 fL 12/2018 Unknown COMPLETE BLOOD COUNT [id number] Neut Auto 45.7 % 9 Unknown COMPLETE BLOOD COUNT [id number] Lymph Auto 42.1 % 08/15/19 19 Unknown COMPLETE BLOOD COUNT [id number] [place] Auto 9.2 % 9 Unknown COMPLETE BLOOD COUNT [id number] RDW 13.4 % 9 Unknown COMPLETE BLOOD COUNT [id number] Eos Auto 2.7 % 9 Unknown COMPLETE BLOOD COUNT [id number] Baso Auto 0.3 % 9 Unknown COMPLETE BLOOD COUNT [id number] Neutrophil Abs 3.56 10e9/L Unknown COMPLETE BLOOD COUNT [id number] Lymphocyte Abs 3.28 10e9/L Unknown COMPLETE BLOOD COUNT [id number] Monocyte Abs 0.72 10e9/L 08/05 Unknown COMPLETE BLOOD COUNT [id number] Eosinophil Abs 0.21 10e9/L Unknown COMPLETE BLOOD COUNT [id number] RDW-SD 44.9 fL 9 Unknown COMPLETE BLOOD COUNT [id number] Basophil Abs 0.02 10e9/L 08/05 Unknown COMPLETE BLOOD COUNT [id number] WBC 5.2 10e9/L 12/01/19 18 Unknown COMPLETE BLOOD COUNT [id number] RBC 4.21 10e12/L 2017 Unknown COMPLETE BLOOD COUNT [id number] HEMOGLOBIN 12.8 g/dL 12/01/19 18 Unknown COMPLETE BLOOD COUNT [id number] HEMATOCRIT 39.0 % 12/01/19 18 Unknown COMPLETE BLOOD COUNT [id number] MCV 92.6 fL 8 Unknown COMPLETE BLOOD COUNT [id number] MCH 30.4 pg 8 Unknown COMPLETE BLOOD COUNT 7125371 MCHC 32.8 g/dL 8 Unknown COMPLETE BLOOD COUNT [id number] PLATELET COUNT 202 10e9/L Unknown COMPLETE BLOOD COUNT [id number] Mean Plt Volume 10.7 fL Unknown COMPLETE BLOOD COUNT [id number] Neut Auto 40.9 % 8 Unknown COMPLETE BLOOD COUNT [id number] Lymph Auto 46.3 % 12/01/19 18 Unknown COMPLETE BLOOD COUNT [id number] [place] Auto 9.3 % 8 Unknown COMPLETE BLOOD COUNT [id number] RDW 13.7 % 8 Unknown COMPLETE BLOOD COUNT [id number] Eos Auto 2.9 % 8 Unknown COMPLETE BLOOD COUNT [id number] Baso Auto 0.6 % 8 Unknown COMPLETE BLOOD COUNT [id number] Neutrophil Abs 2.13 10e9/L Unknown COMPLETE BLOOD COUNT [id number] Lymphocyte Abs 2.41 10e9/L Unknown COMPLETE BLOOD COUNT [id number] Monocyte Abs 0.48 10e9/L 11/06 Unknown COMPLETE BLOOD COUNT [id number] Eosinophil Abs 0.15 10e9/L Unknown COMPLETE BLOOD COUNT [id number] RDW-SD 45.2 fL 8 Unknown COMPLETE BLOOD COUNT [id number] Basophil Abs 0.03 10e9/L 11/06 [place] [address] Glucose 118 mg/dL 11/30 [place] [address] CREATININE 1.01 mg/dL [place] [address] BUN 14 mg/dL 11/30 [place] [address] SODIUM 141 mmol/L 11/06 [place] [address] POTASSIUM 4.0 mmol/L 11/06 [place] [address] CHLORIDE 108 mmol/L 11/06 [place] [address] Bicarbonate 25 mmol/[place] [address] AGAP 8 mmol/L 11/30 [place] [address] CALCIUM 9.6 mg/dL 11/30 Unknown FREE T4 50016 T4 Free 1.23 ng/dL 11/30/2017 Unknown GFR CALC [id number] GFR Non Afr Amr 53 mL/min 11/30/2017 Unk nown GFR CALC [id number] GFR Afr Amr >60 mL/min 11/30/2017 Unknow n THYROID STIMULATING HORMONE 01167 TSH 2.124 uIU/mL 11/30/2017 Unknown [facility] 75390 Cholesterol 152 mg/dL 09/28/2017 Unkno wn L[facility] GROUP 28257 Triglyceride 151 mg/dL 09/28/2017 Unkn own [facility] 25656 HDL CHOLESTEROL 47 mg/dL 09/28/2017 U nknown L[facility] 86026 Chol/HDL Ratio 3.23 ratio 09/28/2017 U nknown L[facility] GROUP 50689 NON-HDL Chol 105 mg/dL 09/28/2017 Unkn own L[facility] GROUP 36960 LDL Cholesterol 75 mg/dL 09/28/2017 U nknown ASSAY OF TROPONIN QUANT 50945 Troponin-I <0.30 ng/mL Unknown COMPREHENSIVE METABOLIC 14500 AST 20 U/L 2017 Unknown COMPREHENSIVE METABOLIC 77460 ALT 14 U/L 2017 Unknown COMPREHENSIVE METABOLIC 16426 BUN 19 mg/dL 2017 Unknown COMPREHENSIVE METABOLIC 50230 ALBUMIN 4.2 g/dL 2017 Unknown COMPREHENSIVE METABOLIC 01274 CHLORIDE 102 mmol/L 09/27 Unknown COMPREHENSIVE METABOLIC 82533 Bili Total 0.4 mg/dL 09/27 Unknown COMPREHENSIVE METABOLIC 81278 ALK PHOS 66 U/L 2017 Unknown COMPREHENSIVE METABOLIC 74406 SODIUM 135 mmol/L 09/27 Unknown COMPREHENSIVE METABOLIC 12110 CREATININE 1.01 mg/dL 09/05 Unknown COMPREHENSIVE METABOLIC 48322 CALCIUM 9.3 mg/dL 2017 Unknown COMPREHENSIVE METABOLIC 56168 POTASSIUM 4.8 mmol/L 09/27 Unknown COMPREHENSIVE METABOLIC 48028 Total Protein 7.0 g/dL Unknown COMPREHENSIVE METABOLIC 65786 Glucose 91 mg/dL 2017 Unknown COMPREHENSIVE METABOLIC 52947 Bicarbonate 23 mmol/L 09/05 Unknown COMPREHENSIVE METABOLIC 19897 AGAP 10 mmol/L 2017 Unknown COMPLETE BLOOD COUNT 3273975 WBC 7.5 10e9/L 09/28/19 18 Unknown COMPLETE BLOOD COUNT 2487155 RBC 4.13 10e12/L 2017 Unknown COMPLETE BLOOD COUNT 6563999 HEMOGLOBIN 12.6 g/dL 09/28/19 18 Unknown COMPLETE BLOOD COUNT 6644088 HEMATOCRIT 38.4 % 09/28/19 18 Unknown COMPLETE BLOOD COUNT 1035331 MCV 93.0 fL 8 Unknown COMPLETE BLOOD COUNT 2748792 MCH 30.5 pg 8 Unknown COMPLETE BLOOD COUNT 7830430 MCHC 32.8 g/dL 8 Unknown COMPLETE BLOOD COUNT 5522996 PLATELET COUNT 204 10e9/L Unknown COMPLETE BLOOD COUNT 5380079 Mean Plt Volume 10.9 fL Unknown COMPLETE BLOOD COUNT 2058865 Neut Auto 43.1 % 8 Unknown COMPLETE BLOOD COUNT 5699294 Lymph Auto 45.0 % 09/28/19 18 Unknown COMPLETE BLOOD COUNT 3292963 [place] Auto 9.2 % 8 Unknown COMPLETE BLOOD COUNT 1022038 RDW 13.4 % 8 Unknown COMPLETE BLOOD COUNT 5362000 Eos Auto 2.3 % 8 Unknown COMPLETE BLOOD COUNT 4085307 Baso Auto 0.4 % 8 Unknown COMPLETE BLOOD COUNT 4178670 Neutrophil Abs 3.23 10e9/L Unknown COMPLETE BLOOD COUNT 6324997 Lymphocyte Abs 3.38 10e9/L Unknown COMPLETE BLOOD COUNT 5167285 Monocyte Abs 0.69 10e9/L 09/05 Unknown COMPLETE BLOOD COUNT 2571464 Eosinophil Abs 0.17 10e9/L Unknown COMPLETE BLOOD COUNT 8565242 RDW-SD 44.4 fL 8 Unknown COMPLETE BLOOD COUNT [id number] Basophil Abs 0.03 10e9/L 09/05 Unknown GFR CALC 1703312 GFR Non Afr Amr 53 mL/min 09/27/2017 Unk nown GFR CALC 5002219 GFR Afr Amr >60 mL/min 09/27/2017 Unknow n GLYCOSYLATED HEMOGLOBIN TEST 42043 Hgb A1c 08428-0 5.4 % 0 09/27/2017 Unknown MEAN GLUC 1117215 Calc Mean Gluc 108 mg/dL 09/27/2017 Unkn own MEAN GLUC 0694086 Calc Mean Gluc 114 mg/dL 11/01/2016 Unkn own LIPID GROUP 29071 Cholesterol 146 mg/dL 11/01/2016 Unkno wn LIPID GROUP 48927 Triglyceride 119 mg/dL 11/01/2016 Unkn own LIPID GROUP 47623 HDL CHOLESTEROL 47 mg/dL 11/01/2016 U nknown LIPID GROUP 74074 Chol/HDL Ratio 3.11 ratio 11/01/2016 U nknown LIPID GROUP 47975 NON-HDL Chol 99 mg/dL 11/01/2016 Unkn own LIPID GROUP 25754 LDL Cholesterol 75 mg/dL 11/01/2016 U nknown GLYCOSYLATED HEMOGLOBIN TEST 98653 Hgb A1c 32545-6 5.6 % 0 11/01/2016 Unknown COMPREHENSIVE METABOLIC 79887 AST 22 U/L 2016 Unknown COMPREHENSIVE METABOLIC 73045 ALT 12 U/L 2016 Unknown COMPREHENSIVE METABOLIC 29589 BUN 17 mg/dL 2016 Unknown COMPREHENSIVE METABOLIC 81506 ALBUMIN 4.0 g/dL 2016 Unknown COMPREHENSIVE METABOLIC 80378 CHLORIDE 110 mmol/L 11/01 Unknown COMPREHENSIVE METABOLIC 36522 Bili Total 0.4 mg/dL 11/01 Unknown COMPREHENSIVE METABOLIC 10749 ALK PHOS 63 U/L 2016 Unknown COMPREHENSIVE METABOLIC 33903 SODIUM 140 mmol/L 11/01 Unknown COMPREHENSIVE METABOLIC 93862 CREATININE 1.05 mg/dL 10/06 Unknown COMPREHENSIVE METABOLIC 04817 CALCIUM 9.2 mg/dL 2016 Unknown COMPREHENSIVE METABOLIC 69554 POTASSIUM 4.2 mmol/L 11/01 Unknown COMPREHENSIVE METABOLIC 36281 Total Protein 6.2 g/dL Unknown COMPREHENSIVE METABOLIC 21305 Glucose 87 mg/dL 2016 Unknown COMPREHENSIVE METABOLIC 73759 Bicarbonate 24 mmol/L 10/06 Unknown COMPREHENSIVE METABOLIC 63206 AGAP 6 mmol/L 2016 Unknown GFR CALC 3135689 GFR Non Afr Amr 51 mL/min 11/01/2016 Unk nown GFR CALC 7153442 GFR Afr Amr >60 mL/min 11/01/2016 Unknow n COMPLETE BLOOD COUNT 2298515 WBC 6.7 10e9/L 11/02/19 17 Unknown COMPLETE BLOOD COUNT 7433518 RBC 4.04 10e12/L 2016 Unknown COMPLETE BLOOD COUNT 5506943 HEMOGLOBIN 12.1 g/dL 11/02/19 17 Unknown COMPLETE BLOOD COUNT 6483544 HEMATOCRIT 38.0 % 11/02/19 17 Unknown COMPLETE BLOOD COUNT 2966022 MCV 94.1 fL 7 Unknown COMPLETE BLOOD COUNT 8282327 MCH 30.0 pg 7 Unknown COMPLETE BLOOD COUNT 1491525 MCHC 31.8 g/dL 7 Unknown COMPLETE BLOOD COUNT 4042441 PLATELET COUNT 206 10e9/L Unknown COMPLETE BLOOD COUNT 8415534 Mean Plt Volume 11.3 fL Unknown COMPLETE BLOOD COUNT 3334655 Neut Auto 35.8 % 7 Unknown COMPLETE BLOOD COUNT 8888766 Lymph Auto 51.6 % 11/02/19 17 Unknown COMPLETE BLOOD COUNT 8847305 [place] Auto 8.8 % 7 Unknown COMPLETE BLOOD COUNT 3333297 RDW 13.5 % 7 Unknown COMPLETE BLOOD COUNT 1700248 Eos Auto 3.4 % 7 Unknown COMPLETE BLOOD COUNT 0384466 Baso Auto 0.4 % 7 Unknown COMPLETE BLOOD COUNT 6345188 Neutrophil Abs 2.40 10e9/L Unknown COMPLETE BLOOD COUNT 4669649 Lymphocyte Abs 3.46 10e9/L Unknown COMPLETE BLOOD COUNT 0137540 Monocyte Abs 0.59 10e9/L 10/06 Unknown COMPLETE BLOOD COUNT 9006243 Eosinophil Abs 0.23 10e9/L Unknown COMPLETE BLOOD COUNT 1488143 RDW-SD 45.3 fL 7 Unknown COMPLETE BLOOD COUNT 6219210 Basophil Abs 0.03 10e9/L 10/06 Unknown THYROID STIMULATING HORMONE 91571 TSH 1.981 uIU/mL 11/01/2016 Unknown COMPLETE BLOOD COUNT 0514017 WBC 6.0 10e9/L 05/14/19 17 Unknown COMPLETE BLOOD COUNT 6148583 RBC 4.29 10e12/L 2016 Unknown COMPLETE BLOOD COUNT 3257131 HEMOGLOBIN 12.9 g/dL 05/14/19 17 Unknown COMPLETE BLOOD COUNT 9144538 HEMATOCRIT 38.4 % 05/14/19 17 Unknown COMPLETE BLOOD COUNT 9847729 MCV 89.5 fL 7 Unknown COMPLETE BLOOD COUNT 1206852 MCH 30.1 pg 7 Unknown COMPLETE BLOOD COUNT 7619627 MCHC 33.6 g/dL 7 Unknown COMPLETE BLOOD COUNT 3345227 PLATELET COUNT 181 10e9/L 11/2016 Unknown COMPLETE BLOOD COUNT 1958580 Mean Plt Volume 11.7 fL 11/2016 Unknown COMPLETE BLOOD COUNT 2190510 Neut Auto 36.9 % 7 Unknown COMPLETE BLOOD COUNT 6197628 Lymph Auto 50.4 % 05/14/19 17 Unknown COMPLETE BLOOD COUNT 0086790 [place] Auto 9.0 % 7 Unknown COMPLETE BLOOD COUNT 8418284 RDW 13.7 % 7 Unknown COMPLETE BLOOD COUNT 3624764 Eos Auto 3.4 % 7 Unknown COMPLETE BLOOD COUNT 7112877 Baso Auto 0.3 % 7 Unknown COMPLETE BLOOD COUNT 9567022 Neutrophil Abs 2.21 10e9/L Unknown COMPLETE BLOOD COUNT 6020150 Lymphocyte Abs 3.02 10e9/L Unknown COMPLETE BLOOD COUNT 9687221 Monocyte Abs 0.54 10e9/L 11/2016 Unknown COMPLETE BLOOD COUNT 7227410 Eosinophil Abs 0.20 10e9/L Unknown COMPLETE BLOOD COUNT 0664976 RDW-SD 44.0 fL 7 Unknown COMPLETE BLOOD COUNT 2766787 Basophil Abs 0.02 10e9/L 11/2016 Unknown GLYCOSYLATED HEMOGLOBIN TEST 85541 Hgb A1c 24863-2 5.4 % 0 05/13/2016 Unknown THYROID STIMULATING HORMONE 31251 TSH 2.200 uIU/mL 05/13/2016 Unknown GFR CALC 3398349 GFR Non Afr Amr 50 mL/min 05/13/2016 Unk nown GFR CALC 7289701 GFR Afr Amr >60 mL/min 05/13/2016 Unknow n MEAN GLUC 8101095 Calc Mean Gluc 108 mg/dL 05/13/2016 Unkn own COMPREHENSIVE METABOLIC 93511 AST 18 U/L 2016 Unknown COMPREHENSIVE METABOLIC 79296 ALT 10 U/L 2016 Unknown COMPREHENSIVE METABOLIC 50073 BUN 20 mg/dL 2016 Unknown COMPREHENSIVE METABOLIC 01346 ALBUMIN 4.1 g/dL 2016 Unknown COMPREHENSIVE METABOLIC 75972 CHLORIDE 109 mmol/L 05/13 Unknown COMPREHENSIVE METABOLIC 57817 Bili Total 0.6 mg/dL 05/13 Unknown COMPREHENSIVE METABOLIC 71853 ALK PHOS 64 U/L 2016 Unknown COMPREHENSIVE METABOLIC 38243 SODIUM 141 mmol/L 05/13 Unknown COMPREHENSIVE METABOLIC 36216 CREATININE 1.06 mg/dL 11/2016 Unknown COMPREHENSIVE METABOLIC 05302 CALCIUM 9.9 mg/dL 2016 Unknown COMPREHENSIVE METABOLIC 94060 POTASSIUM 4.2 mmol/L 05/13 Unknown COMPREHENSIVE METABOLIC 27208 Total Protein 6.3 g/dL Unknown COMPREHENSIVE METABOLIC 30913 Glucose 99 mg/dL 2016 Unknown COMPREHENSIVE METABOLIC 65414 Bicarbonate 21 mmol/L 11/2016 Unknown COMPREHENSIVE METABOLIC 35203 AGAP 11 mmol/L 2016 Unknown LIPID GROUP 48673 Cholesterol 169 mg/dL 11/25/2015 Unkno wn LIPID GROUP 30931 Triglyceride 165 mg/dL 11/25/2015 Unkn own LIPID GROUP 95850 HDL CHOLESTEROL 43 mg/dL 11/25/2015 U nknown LIPID GROUP 06916 Chol/HDL Ratio 3.93 ratio 11/25/2015 U nknown LIPID GROUP 82309 NON-HDL Chol 126 mg/dL 11/25/2015 Unkn own LIPID GROUP 80715 LDL Cholesterol 93 mg/dL 11/25/2015 U nknown COMPREHENSIVE METABOLIC 05217 AST 18 U/L 2015 Unknown COMPREHENSIVE METABOLIC 72322 ALT 10 U/L 2015 Unknown COMPREHENSIVE METABOLIC 43881 BUN 20 mg/dL 2015 Unknown COMPREHENSIVE METABOLIC 53110 ALBUMIN 3.9 g/dL 2015 Unknown COMPREHENSIVE METABOLIC 94783 CHLORIDE 110 mmol/L 11/24 Unknown COMPREHENSIVE METABOLIC 28886 Bili Total 0.5 mg/dL 11/24 Unknown COMPREHENSIVE METABOLIC 50531 ALK PHOS 72 U/L 2015 Unknown COMPREHENSIVE METABOLIC 91408 SODIUM 141 mmol/L 11/24 Unknown COMPREHENSIVE METABOLIC 07524 CREATININE 1.12 mg/dL 11/06 Unknown COMPREHENSIVE METABOLIC 04727 CALCIUM 9.7 mg/dL 2015 Unknown COMPREHENSIVE METABOLIC 93787 POTASSIUM 4.4 mmol/L 11/24 Unknown COMPREHENSIVE METABOLIC 81864 Total Protein 6.2 g/dL Unknown COMPREHENSIVE METABOLIC 52175 Glucose 90 mg/dL 2015 Unknown COMPREHENSIVE METABOLIC 44945 Bicarbonate 23 mmol/L 11/06 Unknown COMPREHENSIVE METABOLIC 86949 AGAP 8 mmol/L 2015 Unknown GFR CALC 4162828 GFR Non Afr Amr 47 mL/min 11/25/2015 Unk nown GFR CALC 6864604 GFR Afr Amr 57 mL/min 11/25/2015 Unknown GLYCOSYLATED HEMOGLOBIN TEST 86670 Hgb A1c 91277-9 5.5 % 0 11/25/2015 Unknown THYROID STIMULATING HORMONE 60163 TSH 2.537 uIU/mL 11/25/2015 Unknown FREE T4 16384 T4 Free 1.36 ng/dL 11/25/2015 Unknown COMPLETE BLOOD COUNT 6561184 WBC 6.8 10e9/L 11/25/19 16 Unknown COMPLETE BLOOD COUNT 0006713 RBC 4.20 10e12/L 2015 Unknown COMPLETE BLOOD COUNT 4046038 HEMOGLOBIN 12.5 g/dL 11/25/19 16 Unknown COMPLETE BLOOD COUNT 0448867 HEMATOCRIT 38.0 % 11/25/19 16 Unknown COMPLETE BLOOD COUNT 0256192 MCV 90.5 fL 6 Unknown COMPLETE BLOOD COUNT 6456289 MCH 29.8 pg 6 Unknown COMPLETE BLOOD COUNT 2177547 MCHC 32.9 g/dL 6 Unknown COMPLETE BLOOD COUNT 0262124 PLATELET COUNT 197 10e9/L Unknown COMPLETE BLOOD COUNT 5266206 Mean Plt Volume 11.7 fL Unknown COMPLETE BLOOD COUNT 9449207 Neut Auto 41.3 % 6 Unknown COMPLETE BLOOD COUNT 4003024 Lymph Auto 47.1 % 11/25/19 16 Unknown COMPLETE BLOOD COUNT 7779531 [place] Auto 7.8 % 6 Unknown COMPLETE BLOOD COUNT 7917466 RDW 13.8 % 6 Unknown COMPLETE BLOOD COUNT 3624934 Eos Auto 3.4 % 6 Unknown COMPLETE BLOOD COUNT 3478469 Baso Auto 0.4 % 6 Unknown COMPLETE BLOOD COUNT 4520295 Neutrophil Abs 2.81 10e9/L Unknown COMPLETE BLOOD COUNT 2081132 Lymphocyte Abs 3.20 10e9/L Unknown COMPLETE BLOOD COUNT 3318993 Monocyte Abs 0.53 10e9/L 11/06 Unknown COMPLETE BLOOD COUNT 1112713 Eosinophil Abs 0.23 10e9/L Unknown COMPLETE BLOOD COUNT 6227656 RDW-SD 44.4 fL 6 Unknown COMPLETE BLOOD COUNT 6872643 Basophil Abs 0.03 10e9/L 11/06 Unknown MEAN GLUC 6502659 Calc Mean Gluc 111 mg/dL 11/25/2015 [place] [address] Glucose 89 MG/DL 02/19 [place] [address] CREATININE 1.12 MG/DL [place] [address] BUN 20 MG/DL 02/19 [place] [address] SODIUM 139 MMOL/L 02/04 [place] [address] POTASSIUM 4.6 MMOL/L 02/04 [place] [address] CHLORIDE 108 MMOL/L 02/04 [place] [address] BICARB 26 MMOL/L 02/19 [place] [address] ANION GAP 5 MEQ/L 02/19 [place] [address] CALCIUM 10.0 MG/DL 02/04 Unknown GFR CALC 3867277 GFR AA 57.0L ML/MIN 02/19/2015 Unknow n GFR CALC 4782573 GFR NON-AA 47.0L ML/MIN 02/19/2015 Unkno wn THYROID STIMULATING HORMONE 05014 TSH 2.378 uIU/ML 11/14/2014 Unknown COMPLETE BLOOD COUNT 2018979 WBC 6.4 10e9/L 11/15/19 15 Unknown COMPLETE BLOOD COUNT 1604485 RBC 3.99 10e12/L 2014 Unknown COMPLETE BLOOD COUNT 9745571 HGB 11.9 g/dL 5 Unknown COMPLETE BLOOD COUNT 1298568 HCT DET 36.9 % 5 Unknown COMPLETE BLOOD COUNT 3366546 MCV 92.5 fL 5 Unknown COMPLETE BLOOD COUNT 9141166 MCH 29.8 pg 5 Unknown COMPLETE BLOOD COUNT 4351186 MCHC 32.2 g/dL 5 Unknown COMPLETE BLOOD COUNT 9187271 PLT 172 10e9/L 11/15/19 15 Unknown COMPLETE BLOOD COUNT 2154032 MPV 11.7 fL 5 Unknown COMPLETE BLOOD COUNT 7840210 [place] % 40.4 % 5 Unknown COMPLETE BLOOD COUNT 8890504 LY % 48.0 % 5 Unknown COMPLETE BLOOD COUNT 3482602 MON % 8.3 % 5 Unknown COMPLETE BLOOD COUNT 0332753 EOS % 2.8 % 5 Unknown COMPLETE BLOOD COUNT 8440598 BASO % 0.5 % 5 Unknown COMPLETE BLOOD COUNT 6363984 RDW 13.6 % 5 Unknown COMPLETE BLOOD COUNT 6444792 ABS CINTHYA 2.59 10e9/L 015 Unknown COMPLETE BLOOD COUNT 2416005 ABS LYMPH 3.07 10e9/L 015 Unknown COMPLETE BLOOD COUNT 0225902 ABS MONO 0.53 10e9/L 015 Unknown COMPLETE BLOOD COUNT 8427579 ABS EOS 0.18 10e9/L 015 Unknown COMPLETE BLOOD COUNT 1463427 ABS BASO 0.03 10e9/L 015 Unknown COMPLETE BLOOD COUNT 0387472 RDW-SD 44.9 fL 5 Unknown LIPID GROUP 43544 HDL TEST 42 MG/DL 11/14/2014 Unknown LIPID GROUP 02002 TRIG 177 MG/DL 11/14/2014 Unknown LIPID GROUP 04866 TEST LDL 72 MG/DL 11/14/2014 Unknown LIPID GROUP 45860 CHOL 149 MG/DL 11/14/2014 Unknown LIPID GROUP 29234 RCHOL/HDL 3.55 RATIO 11/14/2014 Unknow n LIPID GROUP 34435 NON-HDL CH 107 MG/DL 11/14/2014 Unknow n GLYCOSYLATED HEMOGLOBIN TEST 46893 A1C HPLC 09004-3 5.5 % 0 11/14/2014 Unknown FREE T4 39874 FREE T4 1.39 NG/DL 11/14/2014 Unknown GFR CALC 0661893 GFR AA 55.0L ML/MIN 11/14/2014 Unknow n GFR CALC 9885116 GFR NON-AA 46.0L ML/MIN 11/14/2014 Unkno wn COMPREHENSIVE METABOLIC 80917 AST 17 U/L 2014 Unknown COMPREHENSIVE METABOLIC 67239 ALT 10 IU/L 2014 Unknown COMPREHENSIVE METABOLIC 24258 BUN 20 MG/DL 2014 Unknown COMPREHENSIVE METABOLIC 29875 ALBUMIN 3.9 GM/DL 2014 Unknown COMPREHENSIVE METABOLIC 18764 CHLORIDE 111 MMOL/L 11/14 Unknown COMPREHENSIVE METABOLIC 38249 BILI TOT 0.4 MG/DL 2014 Unknown COMPREHENSIVE METABOLIC 66821 ALK PHOS 70 U/L 2014 Unknown COMPREHENSIVE METABOLIC 73722 SODIUM 142 MMOL/L 11/14 Unknown COMPREHENSIVE METABOLIC 51990 CREATININE 1.16 MG/DL 11/05 Unknown COMPREHENSIVE METABOLIC 70261 CALCIUM 9.4 MG/DL 2014 Unknown COMPREHENSIVE METABOLIC 33019 POTASSIUM 4.6 MMOL/L 11/14 Unknown COMPREHENSIVE METABOLIC 14932 PROT TOT 6.2 GM/DL 2014 Unknown COMPREHENSIVE METABOLIC 68329 Glucose 90 MG/DL 2014 Unknown COMPREHENSIVE METABOLIC 32932 BICARB 24 MMOL/L 2014 Unknown COMPREHENSIVE METABOLIC 73766 ANION GAP 7 MEQ/L 2014 Unknown THYROID STIMULATING HORMONE 77945 TSH 2.427 uIU/ML 05/10/2014 Unknown LIPID GROUP 83624 HDL TEST 47 MG/DL 05/10/2014 Unknown LIPID GROUP 34628 TRIG 145 MG/DL 05/10/2014 Unknown LIPID GROUP 44858 TEST LDL 73 MG/DL 05/10/2014 Unknown LIPID GROUP 29689 CHOL 149 MG/DL 05/10/2014 Unknown LIPID GROUP 57568 RCHOL/HDL 3.17 RATIO 05/10/2014 Unknow n LIPID GROUP 71490 NON-HDL CH 102 MG/DL 05/10/2014 Unknow n COMPREHENSIVE METABOLIC 76069 AST 17 U/L 2014 Unknown COMPREHENSIVE METABOLIC 47738 ALT 9 IU/L 2014 Unknown COMPREHENSIVE METABOLIC 51672 BUN 19 MG/DL 2014 Unknown COMPREHENSIVE METABOLIC 56276 ALBUMIN 4.3 GM/DL 2014 Unknown COMPREHENSIVE METABOLIC 10944 CHLORIDE 108 MMOL/L 05/10 Unknown COMPREHENSIVE METABOLIC 67944 BILI TOT 0.5 MG/DL 2014 Unknown COMPREHENSIVE METABOLIC 53392 ALK PHOS 68 U/L 2014 Unknown COMPREHENSIVE METABOLIC 91610 SODIUM 140 MMOL/L 05/10 Unknown COMPREHENSIVE METABOLIC 58762 CREATININE 1.08 MG/DL 08/2014 Unknown COMPREHENSIVE METABOLIC 15363 CALCIUM 9.9 MG/DL 2014 Unknown COMPREHENSIVE METABOLIC 85419 POTASSIUM 4.3 MMOL/L 05/10 Unknown COMPREHENSIVE METABOLIC 21678 PROT TOT 7.2 GM/DL 2014 Unknown COMPREHENSIVE METABOLIC 28644 Glucose 94 MG/DL 2014 Unknown COMPREHENSIVE METABOLIC 07037 BICARB 26 MMOL/L 2014 Unknown COMPREHENSIVE METABOLIC 65481 ANION GAP 6 MEQ/L 2014 Unknown GFR CALC 8957029 GFR AA 60.0L ML/MIN 05/10/2014 Unknow n GFR CALC 8336396 GFR NON-AA 49.0L ML/MIN 05/10/2014 Unkno wn GLYCOSYLATED HEMOGLOBIN TEST 20970 A1C HPLC 14070-5 5.6 % 0 05/10/2014 Unknown COMPLETE BLOOD COUNT 8443849 WBC 7.2 10e9/L 05/11/19 15 Unknown COMPLETE BLOOD COUNT 0041632 RBC 4.28 10e12/L 2014 Unknown COMPLETE BLOOD COUNT 0589689 HGB 12.8 g/dL 5 Unknown COMPLETE BLOOD COUNT 8997391 HCT DET 39.3 % 5 Unknown COMPLETE BLOOD COUNT 1336403 MCV 91.8 fL 5 Unknown COMPLETE BLOOD COUNT 5666146 MCH 29.9 pg 5 Unknown COMPLETE BLOOD COUNT 0514802 MCHC 32.6 g/dL 5 Unknown COMPLETE BLOOD COUNT 4156213 PLT 189 10e9/L 05/11/19 15 Unknown COMPLETE BLOOD COUNT 7171920 MPV 11.2 fL 5 Unknown COMPLETE BLOOD COUNT 9904906 [place] % 38.0 % 5 Unknown COMPLETE BLOOD COUNT 7621965 LY % 51.0 % 5 Unknown COMPLETE BLOOD COUNT 4240001 MON % 7.7 % 5 Unknown COMPLETE BLOOD COUNT 1682541 EOS % 2.9 % 5 Unknown COMPLETE BLOOD COUNT 6522173 BASO % 0.4 % 5 Unknown COMPLETE BLOOD COUNT 0606594 RDW 14.0 % 5 Unknown COMPLETE BLOOD COUNT 8336983 ABS CINTHYA 2.74 10e9/L 015 Unknown COMPLETE BLOOD COUNT 8871047 ABS LYMPH 3.67 10e9/L 015 Unknown COMPLETE BLOOD COUNT 9004502 ABS MONO 0.55 10e9/L 015 Unknown COMPLETE BLOOD COUNT 3709981 ABS EOS 0.21 10e9/L 015 Unknown COMPLETE BLOOD COUNT 1405940 ABS BASO 0.03 10e9/L 015 Unknown COMPLETE BLOOD COUNT 2323625 RDW-SD 46.1 fL 5 Unknown FREE T4 02751 FREE T4 1.14 NG/DL 05/10/2014 Unknown GLYCOSYLATED HEMOGLOBIN TEST 30022 A1C HPLC 47788-2 5.2 % 0 03/29/2013 Unknown FREE T4 40720 FREE T4 1.40 NG/DL 03/28/2013 Unknown GFR CALC 3275070 GFR AA >60 ML/MIN 03/28/2013 Unknown GFR CALC 9784223 GFR NON-AA 52.0L ML/MIN 03/28/2013 Unkno wn COMPREHENSIVE METABOLIC 79835 AST 15 U/L 2013 Unknown COMPREHENSIVE METABOLIC 03480 ALT 9 IU/L 2013 Unknown COMPREHENSIVE METABOLIC 46401 BUN 17 MG/DL 2013 Unknown COMPREHENSIVE METABOLIC 02977 ALBUMIN 4.0 GM/DL 2013 Unknown COMPREHENSIVE METABOLIC 12989 CHLORIDE 112 MMOL/L 03/28 Unknown COMPREHENSIVE METABOLIC 26369 BILI TOT 0.5 MG/DL 2013 Unknown COMPREHENSIVE METABOLIC 03615 ALK PHOS 66 U/L 2013 Unknown COMPREHENSIVE METABOLIC 50754 SODIUM 140 MMOL/L 03/28 Unknown COMPREHENSIVE METABOLIC 95417 CREATININE 1.03 MG/DL 03/08 Unknown COMPREHENSIVE METABOLIC 54037 CALCIUM 9.5 MG/DL 2013 Unknown COMPREHENSIVE METABOLIC 11949 POTASSIUM 4.1 MMOL/L 03/28 Unknown COMPREHENSIVE METABOLIC 14739 PROT TOT 6.2 GM/DL 2013 Unknown COMPREHENSIVE METABOLIC 68145 Glucose 102 MG/DL 2013 Unknown COMPREHENSIVE METABOLIC 63795 BICARB 23 MMOL/L 2013 Unknown COMPREHENSIVE METABOLIC 69974 ANION GAP 5 MEQ/L 2013 Unknown THYROID STIMULATING HORMONE 64081 TSH 2.074 uIU/ML 03/28/2013 Unknown VITAMIN B 12 FOLIC ACID 94786|39886 VIT B 12 423 PG/ML 03/08 Unknown VITAMIN B 12 FOLIC ACID 34754|32194 FOLIC ACID 19.7 NG/ML Unknown LIPID GROUP 97242 HDL TEST 40 MG/DL 03/28/2013 Unknown LIPID GROUP 08741 TRIG 145 MG/DL 03/28/2013 Unknown LIPID GROUP 58705 TEST LDL 81 MG/DL 03/28/2013 Unknown LIPID GROUP 62411 CHOL 150 MG/DL 03/28/2013 Unknown LIPID GROUP 67104 RCHOL/HDL 3.75 RATIO 03/28/2013 Unknow n COMPLETE BLOOD COUNT 6475912 WBC 6.0 10e9/L 03/28/19 14 Unknown COMPLETE BLOOD COUNT 6047968 RBC 4.26 10e12/L 2013 Unknown COMPLETE BLOOD COUNT 2506489 HGB 12.7 g/dL 4 Unknown COMPLETE BLOOD COUNT 0840916 HCT DET 38.7 % 4 Unknown COMPLETE BLOOD COUNT 8926933 MCV 90.8 fL 4 Unknown COMPLETE BLOOD COUNT 7977481 MCH 29.8 pg 4 Unknown COMPLETE BLOOD COUNT 9966711 MCHC 32.8 g/dL 4 Unknown COMPLETE BLOOD COUNT 7019453 PLT 178 10e9/L 03/28/19 14 Unknown COMPLETE BLOOD COUNT 3803274 MPV 11.7 fL 4 Unknown COMPLETE BLOOD COUNT 8944054 CINTHYA % 30.5 % 4 Unknown COMPLETE BLOOD COUNT 0893864 LY % 55.4 % 4 Unknown COMPLETE BLOOD COUNT 9983726 MON % 9.0 % 4 Unknown COMPLETE BLOOD COUNT 0524614 EOS % 4.4 % 4 Unknown COMPLETE BLOOD COUNT 6265336 BASO % 0.7 % 4 Unknown COMPLETE BLOOD COUNT 6368808 RDW 13.3 % 4 Unknown COMPLETE BLOOD COUNT 4572614 ABS CINTHYA 1.83 10e9/L 014 Unknown COMPLETE BLOOD COUNT 2947470 ABS LYMPH 3.32 10e9/L 014 Unknown COMPLETE BLOOD COUNT 0016528 ABS MONO 0.54 10e9/L 014 Unknown COMPLETE BLOOD COUNT 0702640 ABS EOS 0.26 10e9/L 014 Unknown COMPLETE BLOOD COUNT 1983346 ABS BASO 0.04 10e9/L 014 Unknown COMPLETE BLOOD COUNT 6249832 RDW-SD 43.2 fL 4 Unknown HEMOGLOBIN A1C (GLYCOSYLATED) 6746605 A1C HPLC 21156-6 5.5 % 02/24/2012 Unknown COMPLETE BLOOD COUNT 5755467 WBC 6.0 10e9/L 02/23/20 12 Unknown COMPLETE BLOOD COUNT 4375495 RBC 4.22 10e12/L 2011 Unknown COMPLETE BLOOD COUNT 7495241 HGB 12.4 g/dL 2 Unknown COMPLETE BLOOD COUNT 8767954 HCT DET 38.2 % 2 Unknown COMPLETE BLOOD COUNT 1540281 MCV 90.5 fL 2 Unknown COMPLETE BLOOD COUNT 7610475 MCH 29.4 pg 2 Unknown COMPLETE BLOOD COUNT 1694668 MCHC 32.5 g/dL 2 Unknown COMPLETE BLOOD COUNT 3219893 PLT 187 10e9/L 02/23/20 12 Unknown COMPLETE BLOOD COUNT 3917151 MPV 11.5 fL 2 Unknown COMPLETE BLOOD COUNT 2129843 CINTHYA % 36.4 % 2 Unknown COMPLETE BLOOD COUNT 2174339 LY % 51.0 % 2 Unknown COMPLETE BLOOD COUNT 7514344 MON % 8.7 % 2 Unknown COMPLETE BLOOD COUNT 1395582 EOS % 3.2 % 2 Unknown COMPLETE BLOOD COUNT 1063690 BASO % 0.7 % 2 Unknown COMPLETE BLOOD COUNT 0346126 RDW 13.7 % 2 Unknown COMPLETE BLOOD COUNT 2559228 ABS CINTHYA 2.18 10e9/L 012 Unknown COMPLETE BLOOD COUNT 9977318 ABS LYMPH 3.06 10e9/L 012 Unknown COMPLETE BLOOD COUNT 1248687 ABS MONO 0.52 10e9/L 012 Unknown COMPLETE BLOOD COUNT 5646829 ABS EOS 0.19 10e9/L 012 Unknown COMPLETE BLOOD COUNT 3725606 ABS BASO 0.04 10e9/L 012 Unknown COMPLETE BLOOD COUNT 1254035 RDW-SD 44.3 fL 2 Unknown LIPID GROUP 91964 HDL TEST 42 MG/DL 02/23/2012 Unknown LIPID GROUP 61753 TRIG 156 MG/DL 02/23/2012 Unknown LIPID GROUP 25730 TEST LDL 80 MG/DL 02/23/2012 Unknown LIPID GROUP 03306 CHOL 153 MG/DL 02/23/2012 Unknown LIPID GROUP 82034 RCHOL/HDL 3.64 RATIO 02/23/2012 Unknow n FREE T4 27812 FREE T4 1.22 NG/DL 02/23/2012 Unknown COMPREHENSIVE METABOLIC 03785 AST 20 U/L 2011 Unknown COMPREHENSIVE METABOLIC 98419 ALT 11 IU/L 2011 Unknown COMPREHENSIVE METABOLIC 60695 BUN 19 MG/DL 2011 Unknown COMPREHENSIVE METABOLIC 67359 ALBUMIN 4.3 GM/DL 2011 Unknown COMPREHENSIVE METABOLIC 47837 CHLORIDE 109 MMOL/L 02/22 Unknown COMPREHENSIVE METABOLIC 23163 BILI TOT 0.6 MG/DL 2011 Unknown COMPREHENSIVE METABOLIC 43842 ALK PHOS 84 U/L 2011 Unknown COMPREHENSIVE METABOLIC 62409 SODIUM 142 MMOL/L 02/22 Unknown COMPREHENSIVE METABOLIC 22546 CREATININE 1.09 MG/DL 02/04 Unknown COMPREHENSIVE METABOLIC 84596 CALCIUM 9.8 MG/DL 2011 Unknown COMPREHENSIVE METABOLIC 32281 POTASSIUM 4.2 MMOL/L 02/22 Unknown COMPREHENSIVE METABOLIC 59941 PROT TOT 6.4 GM/DL 2011 Unknown COMPREHENSIVE METABOLIC 01123 Glucose 89 MG/DL 2011 Unknown COMPREHENSIVE METABOLIC 99692 BICARB 25 MMOL/L 2011 Unknown COMPREHENSIVE METABOLIC 68097 ANION GAP 8 MEQ/L 2011 Unknown GFR CALC [id number] GFR AA 60.0L ML/MIN 02/23/2012 Unknow n GFR CALC [id number] GFR NON-AA 49.0L ML/MIN 02/23/2012 Unkno wn THYROID STIMULATING HORMONE 60540 TSH 2.450 uIU/ML 02/23/2012 Unknown COMPREHENSIVE METABOLIC 54225 AST 22 U/L 2011 Unknown COMPREHENSIVE METABOLIC 88289 ALT 14 IU/L 2011 Unknown COMPREHENSIVE METABOLIC 47211 BUN 21 MG/DL 2011 Unknown COMPREHENSIVE METABOLIC 21828 ALBUMIN 4.3 GM/DL 2011 Unknown COMPREHENSIVE METABOLIC 10540 CHLORIDE 106 MMOL/L 04/01 Unknown COMPREHENSIVE METABOLIC 27061 BILI TOT 0.4 MG/DL 2011 Unknown COMPREHENSIVE METABOLIC 87814 ALK PHOS 80 U/L 2011 Unknown COMPREHENSIVE METABOLIC 54992 SODIUM 141 MMOL/L 04/01 Unknown COMPREHENSIVE METABOLIC 69902 CREATININE 1.13 MG/DL 03/08 Unknown COMPREHENSIVE METABOLIC 86326 CALCIUM 9.4 MG/DL 2011 Unknown COMPREHENSIVE METABOLIC 59877 POTASSIUM 4.3 MMOL/L 04/01 Unknown COMPREHENSIVE METABOLIC 10949 PROT TOT 6.7 GM/DL 2011 Unknown COMPREHENSIVE METABOLIC 98537 Glucose 98 MG/DL 2011 Unknown COMPREHENSIVE METABOLIC 24152 BICARB 25 MMOL/L 2011 Unknown COMPREHENSIVE METABOLIC 33162 ANION GAP 10 MEQ/L 2011 Unknown LIPID GROUP 24450 HDL TEST 44 MG/DL 04/01/2011 Unknown LIPID GROUP 59349 TRIG 164 MG/DL 04/01/2011 Unknown LIPID GROUP 09571 TEST LDL 98 MG/DL 04/01/2011 Unknown LIPID GROUP 25905 CHOL 175 MG/DL 04/01/2011 Unknown LIPID GROUP 51485 RCHOL/HDL 3.98 RATIO 04/01/2011 Unknow n COMPLETE BLOOD COUNT 15167 WBC 6.7 10e9/L 04/01/19 12 Unknown COMPLETE BLOOD COUNT 06562 RBC 4.36 10e12/L 2011 Unknown COMPLETE BLOOD COUNT 46616 HGB 12.9 g/dL 2 Unknown COMPLETE BLOOD COUNT 60638 HCT DET 39.4 % 2 Unknown COMPLETE BLOOD COUNT 01675 MCV 90.4 fL 2 Unknown COMPLETE BLOOD COUNT 37291 MCH 29.6 pg 2 Unknown COMPLETE BLOOD COUNT 95861 MCHC 32.7 g/dL 2 Unknown COMPLETE BLOOD COUNT 93518 PLT 184 10e9/L 04/01/19 12 Unknown COMPLETE BLOOD COUNT 82426 MPV 10.9 fL 2 Unknown COMPLETE BLOOD COUNT 25552 CINTHYA % 41.5 % 2 Unknown COMPLETE BLOOD COUNT 27219 LY % 45.7 % 2 Unknown COMPLETE BLOOD COUNT 04117 MON % 9.4 % 2 Unknown COMPLETE BLOOD COUNT 44027 EOS % 3.0 % 2 Unknown COMPLETE BLOOD COUNT 10710 BASO % 0.4 % 2 Unknown COMPLETE BLOOD COUNT 03584 RDW 13.2 % 2 Unknown COMPLETE BLOOD COUNT 74911 ABS CINTHYA 2.78 10e9/L 012 Unknown COMPLETE BLOOD COUNT 31236 ABS LYMPH 3.06 10e9/L 012 Unknown COMPLETE BLOOD COUNT 31912 ABS MONO 0.63 10e9/L 012 Unknown COMPLETE BLOOD COUNT 90626 ABS EOS 0.20 10e9/L 012 Unknown COMPLETE BLOOD COUNT 58445 ABS BASO 0.03 10e9/L 012 Unknown COMPLETE BLOOD COUNT 14176 RDW-SD 42.3 fL 2 Unknown GFR CALC [id number] GFR AA 57.0L ML/MIN 04/01/2011 Unknow n GFR CALC [id number] GFR NON-AA 47.0L ML/MIN 04/01/2011 Unkno wn THYROID STIMULATING HORMONE 85811 TSH 2.663 uIU/ML 04/01/2011 Unknown FREE T4 05845 FREE T4 1.15 NG/DL 04/01/2011 Unknown THYROID STIMULATING HORMONE 93148 TSH 1.908 uIU/ML 07/06/2010 Unknown COMPLETE BLOOD COUNT 97667 WBC 6.4 10e9/L 07/07/19 11 Unknown COMPLETE BLOOD COUNT 60325 RBC 3.92 10e12/L 2010 Unknown COMPLETE BLOOD COUNT 13323 HGB 11.8 g/dL 1 Unknown COMPLETE BLOOD COUNT 97104 HCT DET 36.0 % 1 Unknown COMPLETE BLOOD COUNT 67360 MCV 91.8 fL 1 Unknown COMPLETE BLOOD COUNT 56671 MCH 30.1 pg 1 Unknown COMPLETE BLOOD COUNT 67264 MCHC 32.8 g/dL 1 Unknown COMPLETE BLOOD COUNT 52566 PLT 176 10e9/L 07/07/19 11 Unknown COMPLETE BLOOD COUNT 86567 MPV 11.4 fL 1 Unknown COMPLETE BLOOD COUNT 36020 CINTHYA % 50.4 % 1 Unknown COMPLETE BLOOD COUNT 26255 LY % 35.5 % 1 Unknown COMPLETE BLOOD COUNT 73013 MON % 10.2 % 1 Unknown COMPLETE BLOOD COUNT 49916 EOS % 3.3 % 1 Unknown COMPLETE BLOOD COUNT 30336 BASO % 0.6 % 1 Unknown COMPLETE BLOOD COUNT 04713 RDW 13.7 % 1 Unknown COMPLETE BLOOD COUNT 13314 ABS CINTHYA 3.23 10e9/L 011 Unknown COMPLETE BLOOD COUNT 52759 ABS LYMPH 2.27 10e9/L 011 Unknown COMPLETE BLOOD COUNT 50894 ABS MONO 0.65 10e9/L 011 Unknown COMPLETE BLOOD COUNT 49258 ABS EOS 0.21 10e9/L 011 Unknown COMPLETE BLOOD COUNT 16801 ABS BASO 0.04 10e9/L 011 Unknown COMPLETE BLOOD COUNT 38784 RDW-SD 45.3 fL 1 Unknown GFR CALC 4863091 GFR AA >60 ML/MIN 07/06/2010 Unknown GFR CALC 9180697 GFR NON-AA 53.0L ML/MIN 07/06/2010 Unkno wn FREE T4 91693 FREE T4 1.20 NG/DL 07/06/2010 Unknown COMPREHENSIVE METABOLIC 45888 AST 17 U/L 2010 Unknown COMPREHENSIVE METABOLIC 61638 ALT 9 IU/L 2010 Unknown COMPREHENSIVE METABOLIC 74490 BUN 16 MG/DL 2010 Unknown COMPREHENSIVE METABOLIC 49294 ALBUMIN 4.0 GM/DL 2010 Unknown COMPREHENSIVE METABOLIC 14883 CHLORIDE 108 MMOL/L 07/06 Unknown COMPREHENSIVE METABOLIC 71997 BILI TOT 0.5 MG/DL 2010 Unknown COMPREHENSIVE METABOLIC 15216 ALK PHOS 76 U/L 2010 Unknown COMPREHENSIVE METABOLIC 68004 SODIUM 139 MMOL/L 07/06 Unknown COMPREHENSIVE METABOLIC 33879 CREATININE 1.02 MG/DL 04/2010 Unknown COMPREHENSIVE METABOLIC 89444 CALCIUM 9.2 MG/DL 2010 Unknown COMPREHENSIVE METABOLIC 40326 POTASSIUM 4.5 MMOL/L 07/06 Unknown COMPREHENSIVE METABOLIC 71725 PROT TOT 6.1 GM/DL 2010 Unknown COMPREHENSIVE METABOLIC 45918 Glucose 93 MG/DL 2010 Unknown COMPREHENSIVE METABOLIC 24025 BICARB 26 MMOL/L 2010 Unknown COMPREHENSIVE METABOLIC 97988 ANION GAP 5 MEQ/L 2010 Unknown LIPID GROUP 32515 HDL TEST 46 MG/DL 07/06/2010 Unknown LIPID GROUP 24661 TRIG 102 MG/DL 07/06/2010 Unknown LIPID GROUP 27085 TEST LDL 88 MG/DL 07/06/2010 Unknown LIPID GROUP 82419 CHOL 154 MG/DL 07/06/2010 Unknown LIPID GROUP 16259 RCHOL/HDL 3.35 RATIO 07/06/2010 Unknow n Procedures Procedure Codes Date ROUTINE VENIPUNCTURE CPT-4: 75305 03/13/2019 ASSAY THYROID STIM HORMONE CPT-4: 11607 03/13/2019 COMPLETE CBC W/AUTO DIFF WBC CPT-4: 77196 03/13/2019 COMPREHEN METABOLIC PANEL CPT-4: 53886 03/13/2019 ROUTINE VENIPUNCTURE CPT-4: 62579 01/23/2019 LIPID PANEL CPT-4: 39401 01/23/2019 FLU VACC PRSV FREE INC ANTIG 65 AND OLDER CPT-4: 44449 12/26/2018 FLU VACC PRSV FREE INC ANTIG 65 AND OLDER CPT-4: 36731 12/26/2018 ADMIN INFLUENZA VIRUS VAC CPT-4: G0008 12/26/2018 COMPREHEN METABOLIC PANEL CPT-4: 76004 12/15/2018 ROUTINE VENIPUNCTURE CPT-4: 07612 12/15/2018 ROUTINE VENIPUNCTURE CPT-4: 64791 08/14/2018 ASSAY THYROID STIM HORMONE CPT-4: 33404 08/14/2018 COMPREHEN METABOLIC PANEL CPT-4: 58701 08/14/2018 COMPLETE CBC W/AUTO DIFF WBC CPT-4: 31542 08/14/2018 URINALYSIS NONAUTO W/O SCOPE CPT-4: 86712 05/10/2018 URINE CULTURE/ COLONY COUNT CPT-4: 84300 05/10/2018 URINE CULTURE/ COLONY COUNT CPT-4: 80197 12/06/2017 ROUTINE VENIPUNCTURE CPT-4: 37780 11/30/2017 ASSAY OF FREE THYROXINE CPT-4: 68527 11/30/2017 ASSAY THYROID STIM HORMONE CPT-4: 40771 11/30/2017 COMPLETE CBC W/AUTO DIFF WBC CPT-4: 46646 11/30/2017 METABOLIC PANEL TOTAL CA CPT-4: 76756 11/30/2017 FLU VACC PRSV FREE INC ANTIG 65 AND OLDER CPT-4: 03063 11/22/2017 ASSAY, GLUCOSE, BLOOD QUANT CPT-4: 33017 11/22/2017 ADMIN INFLUENZA VIRUS VAC CPT-4: G0008 11/22/2017 ROUTINE VENIPUNCTURE CPT-4: 56390 09/27/2017 COMPREHEN METABOLIC PANEL CPT-4: 61474 09/27/2017 COMPLETE CBC W/AUTO DIFF WBC CPT-4: 78403 09/27/2017 A1C HPLC CPT-4: 58794 09/27/2017 ASSAY OF TROPONIN QUANT CPT-4: 44327 09/27/2017 LIPID PANEL CPT-4: 93552 09/27/2017 THER/PROPH/DIAG INJ SC/IM CPT-4: 48511 05/30/2017 TRIAMCINOLONE ACET INJ NOS CPT-4: J3301 05/30/2017 URINALYSIS NONAUTO W/O SCOPE CPT-4: 05924 04/18/2017 URINE CULTURE/ COLONY COUNT CPT-4: 22218 04/18/2017 FLU VACC PRSV FREE INC ANTIG 65 AND OLDER CPT-4: 60053 12/10/2016 ADMIN INFLUENZA VIRUS VAC CPT-4: G0008 12/10/2016 ROUTINE VENIPUNCTURE CPT-4: 56337 11/01/2016 COMPREHEN METABOLIC PANEL CPT-4: 14814 11/01/2016 COMPLETE CBC W/AUTO DIFF WBC CPT-4: 24022 11/01/2016 LIPID PANEL CPT-4: 18672 11/01/2016 A1C HPLC CPT-4: 18704 11/01/2016 ASSAY THYROID STIM HORMONE CPT-4: 80189 11/01/2016 ROUTINE VENIPUNCTURE CPT-4: 34461 05/13/2016 ASSAY THYROID STIM HORMONE CPT-4: 11768 05/13/2016 COMPREHEN METABOLIC PANEL CPT-4: 57133 05/13/2016 COMPLETE CBC W/AUTO DIFF WBC CPT-4: 23843 05/13/2016 A1C HPLC CPT-4: 15223 05/13/2016 FLU VACC PRSV FREE INC ANTIG 65 AND OLDER CPT-4: 53435 12/12/2015 ADMIN INFLUENZA VIRUS VAC CPT-4: G0008 12/12/2015 ROUTINE VENIPUNCTURE CPT-4: 21552 11/25/2015 ASSAY OF FREE THYROXINE CPT-4: 89558 11/25/2015 ASSAY THYROID STIM HORMONE CPT-4: 50269 11/25/2015 COMPREHEN METABOLIC PANEL CPT-4: 50111 11/25/2015 COMPLETE CBC W/AUTO DIFF WBC CPT-4: 86296 11/25/2015 LIPID PANEL CPT-4: 26964 11/25/2015 A1C HPLC CPT-4: 85721 11/25/2015 URINALYSIS NONAUTO W/O SCOPE CPT-4: 49654 05/21/2015 ROUTINE VENIPUNCTURE CPT-4: 07393 02/19/2015 METABOLIC PANEL TOTAL CA CPT-4: 51343 02/19/2015 PRESCRIP TRANSMIT VIA ERX SY CPT-4: G8553 02/19/2015 FLU VACC PRSV FREE INC ANTIG 65 AND OLDER CPT-4: 95554 12/20/2014 ADMIN INFLUENZA VIRUS VAC CPT-4: G0008 12/20/2014 URINALYSIS NONAUTO W/O SCOPE CPT-4: 55272 11/19/2014 URINE CULTURE/ COLONY COUNT CPT-4: 25994 11/19/2014 ROUTINE VENIPUNCTURE CPT-4: 23440 11/14/2014 ASSAY OF FREE THYROXINE CPT-4: 20718 11/14/2014 ASSAY THYROID STIM HORMONE CPT-4: 89113 11/14/2014 COMPREHEN METABOLIC PANEL CPT-4: 49570 11/14/2014 COMPLETE CBC W/AUTO DIFF WBC CPT-4: 11050 11/14/2014 LIPID PANEL CPT-4: 48459 11/14/2014 A1C HPLC CPT-4: 10387 11/14/2014 CERUM REMOVAL CPT-4: 23657 09/27/2014 PRESCRIP TRANSMIT VIA ERX SY CPT-4: G8553 07/11/2014 FLUZONE, 5ML (Medicare) CPT-4: Q2038 12/21/2013 ADMIN INFLUENZA VIRUS VAC CPT-4: G0008 12/21/2013 PRESCRIP TRANSMIT VIA ERX SY CPT-4: G8553 10/17/2013 PRESCRIP TRANSMIT VIA ERX SY CPT-4: G8553 09/24/2013 PRESCRIP TRANSMIT VIA ERX SY CPT-4: G8553 05/31/2013 ROUTINE VENIPUNCTURE CPT-4: 11546 03/28/2013 ASSAY OF FREE THYROXINE CPT-4: 33639 03/28/2013 ASSAY THYROID STIM HORMONE CPT-4: 27718 03/28/2013 COMPREHEN METABOLIC PANEL CPT-4: 61373 03/28/2013 COMPLETE CBC W/AUTO DIFF WBC CPT-4: 59892 03/28/2013 LIPID PANEL CPT-4: 87966 03/28/2013 A1C HPLC CPT-4: 82021 03/28/2013 VITAMIN B 12 FOLIC ACID CPT-4: 20013|01477 03/28/2013 PRESCRIP TRANSMIT VIA ERX SY CPT-4: G8553 03/26/2013 PRESCRIP TRANSMIT VIA ERX SY CPT-4: G8553 12/19/2012 FLUZONE, 5ML (Medicare) CPT-4: Q2038 11/27/2012 ADMIN INFLUENZA VIRUS VAC CPT-4: G0008 11/27/2012 PRESCRIP TRANSMIT VIA ERX SY CPT-4: G8553 10/04/2012 PRESCRIP TRANSMIT VIA ERX SY CPT-4: G8553 07/14/2012 ROUTINE VENIPUNCTURE CPT-4: 90113 02/23/2012 ASSAY OF FREE THYROXINE CPT-4: 28532 02/23/2012 ASSAY THYROID STIM HORMONE CPT-4: 44991 02/23/2012 COMPREHEN METABOLIC PANEL CPT-4: 10193 02/23/2012 COMPLETE CBC W/AUTO DIFF WBC CPT-4: 98514 02/23/2012 LIPID PANEL CPT-4: 64936 02/23/2012 A1C GLYCOSYLATED HEMOGLOBIN TEST CPT-4: 23707 012 CERUM REMOVAL CPT-4: 07294 02/22/2012 PRESCRIP TRANSMIT VIA ERX SY CPT-4: G8553 02/22/2012 PRESCRIP TRANSMIT VIA ERX SY CPT-4: G8553 12/15/2011 FLUZONE, 5ML (Medicare) CPT-4: Q2038 12/02/2011 ADMIN INFLUENZA VIRUS VAC CPT-4: G0008 12/02/2011 ASSAY, GLUCOSE, BLOOD QUANT CPT-4: 80998 09/21/2011 URINALYSIS NONAUTO W/O SCOPE CPT-4: 92632 09/16/2011 URINE CULTURE/ COLONY COUNT CPT-4: 27145 09/16/2011 ROUTINE VENIPUNCTURE CPT-4: 54785 09/15/2011 ASSAY OF FREE THYROXINE CPT-4: 14499 09/15/2011 ASSAY THYROID STIM HORMONE CPT-4: 90320 09/15/2011 COMPREHEN METABOLIC PANEL CPT-4: 19061 09/15/2011 COMPLETE CBC W/AUTO DIFF WBC CPT-4: 89488 09/15/2011 LIPID PANEL CPT-4: 55483 09/15/2011 ASSAY OF INSULIN CPT-4: 52617 09/15/2011 A1C GLYCOSYLATED HEMOGLOBIN TEST CPT-4: 58198 012 DRAIN/INJECT JOINT/BURSA CPT-4: 97024 08/16/2011 METHYLPREDNISOLONE 40 MG INJ CPT-4: J1030 08/16/2011 TRIAMCINOLONE ACET INJ NOS CPT-4: J3301 08/16/2011 PRESCRIP TRANSMIT VIA ERX SY CPT-4: G8553 08/03/2011 PRESCRIP TRANSMIT VIA ERX SY CPT-4: G8553 07/26/2011 METHYLPREDNISOLONE 40 MG INJ CPT-4: J1030 06/28/2011 DRAIN/INJECT JOINT/BURSA CPT-4: 46617 06/28/2011 TRIAMCINOLONE ACET INJ NOS CPT-4: J3301 06/28/2011 PRESCRIP TRANSMIT VIA ERX SY CPT-4: G8553 06/28/2011 ROUTINE VENIPUNCTURE CPT-4: 72983 04/01/2011 ASSAY OF FREE THYROXINE CPT-4: 65442 04/01/2011 ASSAY THYROID STIM HORMONE CPT-4: 54730 04/01/2011 COMPREHEN METABOLIC PANEL CPT-4: 99589 04/01/2011 COMPLETE CBC W/AUTO DIFF WBC CPT-4: 04829 04/01/2011 LIPID PANEL CPT-4: 31690 04/01/2011 PRESCRIP TRANSMIT VIA ERX SY CPT-4: G8553 03/31/2011 CERUM REMOVAL CPT-4: 99150 02/11/2011 PRESCRIP TRANSMIT VIA ERX SY CPT-4: G8553 02/11/2011 FLUZONE, 5ML (Medicare) CPT-4: Q2038 12/09/2010 ADMIN INFLUENZA VIRUS VAC CPT-4: G0008 12/09/2010 PRESCRIP TRANSMIT VIA ERX SY CPT-4: G8553 10/15/2010 URINALYSIS NONAUTO W/O SCOPE CPT-4: 14742 09/29/2010 URINE CULTURE/ COLONY COUNT CPT-4: 66193 09/29/2010 CUR TOBACCO NON-USER CPT-4: G8457 09/29/2010 ROUTINE VENIPUNCTURE CPT-4: 42393 07/06/2010 COMPLETE CBC W/AUTO DIFF WBC CPT-4: 51245 07/06/2010 COMPREHEN METABOLIC PANEL CPT-4: 48599 07/06/2010 LIPID PANEL CPT-4: 31136 07/06/2010 ASSAY THYROID STIM HORMONE CPT-4: 50633 07/06/2010 ASSAY OF FREE THYROXINE CPT-4: 11272 07/06/2010 PRESCRIP TRANSMIT VIA ERX SY CPT-4: G8553 07/02/2010 INJ TRIGGER POINT 1/2 MUSCL CPT-4: 28796 04/06/2010 TRIAMCINOLONE ACET INJ NOS CPT-4: J3301 04/06/2010 METHYLPREDNISOLONE 40 MG INJ CPT-4: J1030 04/06/2010 THER/PROPH/DIAG INJ SC/IM CPT-4: 02967 04/01/2010 KETOROLAC TROMETHAMINE INJ CPT-4: J1885 04/01/2010 PRESCRIP TRANSMIT VIA ERX SY CPT-4: G8553 01/22/2010 FLU VACCINE 3 YRS & > IM UP 64 CPT-4: 87553 0 ADMIN INFLUENZA VIRUS VAC CPT-4: G0008 12/10/2009 URINALYSIS NONAUTO W/O SCOPE CPT-4: 16181 12/02/2009 URINE CULTURE/ COLONY COUNT CPT-4: 75220 12/02/2009 PRESCRIP TRANSMIT VIA ERX SY CPT-4: G8553 12/02/2009 THER/PROPH/DIAG INJ SC/IM CPT-4: 72686 09/10/2009 VITAMIN B12 INJECTION CPT-4: J3420 09/10/2009 THER/PROPH/DIAG INJ SC/IM CPT-4: 88712 08/11/2009 VITAMIN B12 INJECTION CPT-4: J3420 08/11/2009 ROUTINE VENIPUNCTURE CPT-4: 37597 06/10/2009 Vital Signs Date Vital 04/03/2019 Blood [...] 1: 142/60 Code: 8480-6 BMI: 38.2 Code: 77766-6 Heart Rate 1: 48 bpm Height: 5'2" Respiratory Rate: 20 bpm SpO2: 98% Tempera ture: 36.7 (C) / 98.1 (F) Weight: 212 lbs 01/10/2018 Blood Pressure 1: 142/64 Code: 8480-6 BMI: 38.5 Code: 47697-1 Heart Rate 1: 52 bpm Height: 5'2" Respiratory Rate: 22 bpm SpO2: 96% Tempera ture: 36.1 (C) / 96.9 (F) Weight: 214 lbs 12/06/2017 Blood Pressure 1: 124/80 Code: 8480-6 BMI: 38.3 Code: 52015-6 Heart Rate 1: 68 bpm Height: 5'2" Respiratory Rate: 20 bpm Temperature: 36 .3 (C) / 97.4 (F) Weight: 213 lbs 11/22/2017 Blood Pressure 1: 132/78 Code: 8480-6 BMI: 37.6 Code: 27033-6 Heart Rate 1: 68 bpm Height: 5'2" Respiratory Rate: 20 bpm SpO2: 97% Tempera ture: 36.8 (C) / 98.2 (F) Weight: 209 lbs 10/20/2017 Blood Pressure 1: 150/76 Code: 8480-6 BMI: 38.5 Code: 05128-1 Heart Rate 1: 64 bpm Height: 5'2" Respiratory Rate: 20 bpm SpO2: 97% Tempera ture: 36.2 (C) / 97.2 (F) Weight: 214 lbs 09/27/2017 Blood Pressure 1: 122/74 Code: 8480-6 BMI: 38.2 Code: 56547-5 Heart Rate 1: 64 bpm Height: 5'2" Respiratory Rate: 18 bpm SpO2: 96% Tempera ture: 35.8 (C) / 96.4 (F) Weight: 212 lbs 08/16/2017 Blood Pressure 1: 124/78 Code: 8480-6 BMI: 37.8 Code: 21328-0 Heart Rate 1: 76 bpm Height: 5'2" Respiratory Rate: 20 bpm Temperature: 36 .8 (C) / 98.3 (F) Weight: 210 lbs 07/07/2017 Blood Pressure 1: 136/70 Code: 8480-6 BMI: 38.0 Code: 53785-5 Heart Rate 1: 68 bpm Height: 5'2" Respiratory Rate: 20 bpm SpO2: 97% Tempera ture: 36.8 (C) / 98.2 (F) Weight: 211 lbs 05/30/2017 Blood Pressure 1: 140/65 Code: 8480-6 Heart Rate 1: 75 bpm Respiratory Rate: 24 bpm SpO2: 95% Temperature: 37.0 (C) / 98.6 (F) We ight: 211 lbs 04/18/2017 Blood Pressure 1: 154/70 Code: 8480-6 BMI: 37.6 Code: 70052-9 Heart Rate 1: 76 bpm Height: 5'2" Respiratory Rate: 20 bpm SpO2: 98% Tempera ture: 36.9 (C) / 98.5 (F) Weight: 209 lbs 10/25/2016 Blood Pressure 1: 156/70 Code: 8480-6 BMI: 37.1 Code: 22439-8 Heart Rate 1: 72 bpm Height: 5'2" Respiratory Rate: 20 bpm SpO2: 97% Tempera ture: 37.0 (C) / 98.6 (F) Weight: 206 lbs 09/20/2016 Blood Pressure 1: 152/78 Code: 8480-6 BMI: 36.8 Code: 14098-7 Heart Rate 1: 78 bpm Height: 5'2" Respiratory Rate: 20 bpm SpO2: 98% Tempera ture: 36.1 (C) / 97.0 (F) Weight: 204 lbs 05/12/2016 Blood Pressure 1: 142/70 Code: 8480-6 BMI: 36.9 Code: 95791-3 Heart Rate 1: 64 bpm Height: 5'2" [...] 1: 122/64 Code: 8480-6 BMI: 39.1 Code: 68873-0 Heart Rate 1: 76 bpm Height: 5'2" Respiratory Rate: 20 bpm Temperature: 36 .8 (C) / 98.2 (F) Weight: 217 lbs 05/21/2015 Blood Pressure 1: 144/70 Code: 8480-6 BMI: 39.4 Code: 51184-1 Heart Rate 1: 76 bpm Height: 5'2" Respiratory Rate: 20 bpm Temperature: 36 .6 (C) / 97.9 (F) Weight: 219 lbs 02/19/2015 Blood Pressure 1: 152/60 Code: 8480-6 BMI: 39.6 Code: 52801-3 Heart Rate 1: 84 bpm Height: 5'2" Respiratory Rate: 20 bpm Temperature: 37 .0 (C) / 98.6 (F) Weight: 220 lbs 11/13/2014 Blood Pressure 1: 146/76 Code: 8480-6 BMI: 39.8 Code: 31212-5 Heart Rate 1: 88 bpm Height: 5'2" Respiratory Rate: 20 bpm Temperature: 37 .0 (C) / 98.6 (F) Weight: 221 lbs 09/27/2014 Blood Pressure 1: 132/70 Code: 8480-6 BMI: 39.1 Code: 85650-7 Heart Rate 1: 88 bpm Height: 5'2" Respiratory Rate: 20 bpm Temperature: 36 .4 (C) / 97.6 (F) Weight: 217 lbs 07/11/2014 Blood Pressure 1: 132/66 Code: 8480-6 BMI: 39.9 Code: 85763-1 Heart Rate 1: 72 bpm Height: 5'2" Respiratory Rate: 20 bpm Temperature: 36 .9 (C) / 98.4 (F) Weight: 218 lbs 05/23/2014 Blood Pressure 1: 136/80 Code: 8480-6 Heart Rate 1: 76 bpm Respiratory Rate: 20 bpm Temperature: 36.7 (C) / 98.0 (F) Weight: 224 lbs 03/20/2014 Blood Pressure 1: 134/78 Code: 8480-6 BMI: 39.7 Code: 16234-6 Heart Rate 1: 84 bpm Height: 5'2" Respiratory Rate: 20 bpm Temperature: 36 .7 (C) / 98.0 (F) Weight: 217 lbs 10/17/2013 Blood Pressure 1: 146/78 Code: 8480-6 BMI: 39.5 Code: 69659-1 Heart Rate 1: 82 bpm Height: 5'2" Respiratory Rate: 18 bpm Temperature: 35 .6 (C) / 96.1 (F) Weight: 216 lbs 09/24/2013 Blood Pressure 1: 134/70 Code: 8480-6 BMI: 37.9 Code: 26662-8 Heart Rate 1: 80 bpm Height: 5'3" Respiratory Rate: 20 bpm Temperature: 36 .8 (C) / 98.2 (F) Weight: 214 lbs 05/31/2013 Blood Pressure 1: 132/70 Code: 8480-6 BMI: 37.6 Code: 11676-3 Heart Rate 1: 80 bpm Height: 5'3" Respiratory Rate: 20 bpm Temperature: 36 .8 (C) / 98.3 (F) Weight: 212 lbs 03/26/2013 Blood Pressure 1: 116/74 Code: 8480-6 Heart Rate 1: 68 bpm Respiratory Rate: 20 bpm Temperature: 36.2 (C) / 97.1 (F) Weight: 212 lbs 12/19/2012 Blood Pressure 1: 132/82 Code: 8480-6 BMI: 37.4 Code: 34266-0 Heart Rate 1: 76 bpm Height: 5'3" Respiratory Rate: 20 bpm Temperature: 36 .7 (C) / 98.0 (F) Weight: 211 lbs 12/04/2012 Blood Pressure 1: 130/76 Code: 8480-6 He art Rate 1: 78 bpm 11/27/2012 Blood Pressure 1: 140/82 Code: 8480-6 BMI: 36.8 Code: 45234-9 Heart Rate 1: 66 bpm Height: 5'3" Respiratory Rate: 20 bpm Temperature: 36 .1 (C) / 96.9 (F) Weight: 208 lbs 10/04/2012 Blood Pressure 1: 138/80 Code: 8480-6 BMI: 36.4 Code: 02591-4 Heart Rate 1: 72 bpm Height: 5'4" Respiratory Rate: 20 bpm Temperature: 36 .7 (C) / 98.0 (F) Weight: 212 lbs 07/27/2012 Blood Pressure 1: 124/70 Code: 8480-6 BMI: 36.9 Code: 24808-4 Heart Rate 1: 60 bpm Height: 5'4" Temperature: 36.1 (C) / 97.0 (F) Weight: 215 lbs 07/14/2012 Blood Pressure 1: 132/86 Code: 8480-6 BMI: 36.9 Code: 70290-8 Heart Rate 1: 76 bpm Height: 5'4" Respiratory Rate: 20 bpm Temperature: 36 .8 (C) / 98.2 (F) Weight: 215 lbs 06/08/2012 Blood Pressure 1: 134/82 Code: 8480-6 BMI: 36.6 Code: 20674-5 Heart Rate 1: 72 bpm Height: 5'4" Respiratory Rate: 20 bpm Temperature: 36 .3 (C) / 97.4 (F) Weight: 213 lbs 02/22/2012 Blood Pressure 1: 142/80 Code: 8480-6 BMI: 37.1 Code: 77487-1 Heart Rate 1: 76 bpm Height: 5'4" Respiratory Rate: 20 bpm Temperature: 36 .8 (C) / 98.3 (F) Weight: 216 lbs 12/28/2011 Blood Pressure 1: 128/68 Code: 8480-6 BMI: 37.6 Code: 92635-5 Heart Rate 1: 72 bpm Height: 5'4" [...] 1: 128/78 Code: 8480-6 BMI: 38.1 Code: 51135-6 Heart Rate 1: 84 bpm Height: 5'4" Respiratory Rate: 20 bpm Temperature: 36 .9 (C) / 98.4 (F) Weight: 222 lbs 08/16/2011 Blood Pressure 1: 138/80 Code: 8480-6 BMI: 37.9 Code: 69905-4 Heart Rate 1: 74 bpm Height: 5'4" Temperature: 36.1 (C) / 97.0 (F) Weight: 221 lbs 08/03/2011 Blood Pressure 1: 126/78 Code: 8480-6 BMI: 38.4 Code: 78601-4 Heart Rate 1: 72 bpm Height: 5'4" Respiratory Rate: 20 bpm Temperature: 36 .7 (C) / 98.0 (F) Weight: 224 lbs 07/26/2011 Blood Pressure 1: 138/72 Code: 8480-6 BMI: 38.4 Code: 26559-1 Heart Rate 1: 72 bpm Height: 5'4" Respiratory Rate: 20 bpm Temperature: 36 .6 (C) / 97.9 (F) Weight: 224 lbs 06/28/2011 Blood Pressure 1: 122/78 Code: 8480-6 BMI: 38.8 Code: 84442-5 Heart Rate 1: 88 bpm Height: 5'4" Respiratory Rate: 20 bpm Temperature: 36 .6 (C) / 97.8 (F) Weight: 226 lbs 03/31/2011 Blood Pressure 1: 116/60 Code: 8480-6 BMI: 38.1 Code: 18958-6 Heart Rate 1: 92 bpm Height: 5'4" Respiratory Rate: 20 bpm Temperature: 36 .8 (C) / 98.2 (F) Weight: 222 lbs 02/11/2011 Blood Pressure 1: 118/62 Code: 8480-6 BMI: 37.9 Code: 06851-5 Heart Rate 1: 80 bpm Height: 5'4" Temperature: 36.5 (C) / 97.7 (F) Weight: 221 lbs 10/15/2010 Blood Pressure 1: 132/70 Code: 8480-6 Heart Rate 1: 84 bpm Respiratory Rate: 20 bpm Temperature: 36.7 (C) / 98.0 (F) Weight: 221 lbs 09/29/2010 Blood Pressure 1: 114/72 Code: 8480-6 BMI: 37.6 Code: 22650-0 Heart Rate 1: 76 bpm Height: 5'4" [...] 1: 120/70 Code: 8480-6 BMI: 38.3 Code: 97470-7 Heart Rate 1: 88 bpm Height: 5'5" [...] 02/14/2018 Patient had heart ca th on 01-03-18 and one of the bypass veins in [place] follow up 01/10/2018 4 Week follow up 12/06/2017 follow up 11/22/2017 high blood pressure 10/20/2017 Dr Mcgrath has ordered holter monitor and hydralazine 50mg PRN dizziness 09/27/2017 On Tuesday morning pa pascualcrystal woke up and went to the bathroom and after lying down became very dizzy. Patient has hx of vertigo so didn't think anything of it. She usually just has them intermittently, but had more that day. While at [employer] began to feel very ill and became [...] 06/09/2009 Encounters Encounter Performer Location Codes Date ([id number]) OFFICE/OUTPATIENT VISIT EST Diagnosis: Essential (primary) hypertension[ICD10: I10] Diagnosis: Generalized anxiety disorder[ICD10: F41.1] Vikki GUAMAN [employer] CPT-4: 36783 04/03/2019 ([id number]) OFFICE/OUTPATIENT VISIT EST Diagnosis: Essential (primary) hypertension[ICD10: I10] Diagnosis: Palpitations[ICD10: R00.2] Vikki BENJAMIN [employer] CPT-4: 28015 03/20/2019 ([id number]) OFFICE/OUTPATIENT VISIT EST Diagnosis: Essential hypertension[ICD10: I10] Diagnosis: Palpitations[ICD10: R00.2] Diagnosis: Stress reaction[ICD10: F43.0] Vikki GUAMAN DO [facility] CPT-4: 28577 03/13/2019 ([id number]) NURSE/OUTPATIENT VISIT EST Diagnosis: Mixed hyperlipidemia[ICD10: E78.2] Vikki GUAMAN DO [facility] CPT-4: 61978 01/23/2019 ([id number]) NURSE/OUTPATIENT VISIT EST Diagnosis: FLU VACCINE[ICD10: Z23] Vikki BALL DO [facility] CPT-4: 58050 12/26/2018 ([id number]) NURSE/OUTPATIENT VISIT EST Diagnosis: Chronic kidney disease, stage 1[ICD10: N18.1] Vikki GUAMAN DO [facility] CPT-4: 25138 12/15/2018 ([id number]) OFFICE/OUTPATIENT VISIT EST Diagnosis: Acute serous otitis media, left ear[ICD10: H65.02] Jeninfer GUAMAN DO [facility] CPT-4: 27933 11/07/2018 ([id number]) OFFICE/OUTPATIENT VISIT EST Diagnosis: Essential (primary) hypertension[ICD10: I10] Diagnosis: 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] Diagnosis: Hypoglycemia, unspecified[ICD10: E16.2] Diagnosis: Other fatigue[ICD10: R53.83] Diagnosis: Urinary tract infection, site not specified[ICD10: N39.0] Vikki GUAMAN DO [facility] CPT-4: 51442 08/14/2018 ([id number]) OFFICE/OUTPATIENT VISIT EST Diagnosis: Essential (primary) hypertension[ICD10: I10] Diagnosis: Gastro-esophageal reflux disease without esophagitis[ICD10: K21.9] Diagnosis: Urinary tract infection, site not specified[ICD10: N39.0] Vikki GUAMAN DO [facility] CPT-4: 14077 05/10/2018 ([id number]) OFFICE/OUTPATIENT VISIT EST Diagnosis: Gastro-esophageal reflux disease without esophagitis[ICD10: K21.9] Diagnosis: Epigastric pain[ICD10: R10.13] Vikki GUAMAN [facility] CPT-4: 16390 02/14/2018 ([id number]) OFFICE/OUTPATIENT VISIT EST Diagnosis: Atherosclerotic heart disease of [place] coronary artery without angina pectoris[ICD10: I25.10] Diagnosis: Essential (primary) hypertension[ICD10: I10] Diagnosis: Generalized anxiety disorder[ICD10: F41.1] Diagnosis: Gastro-esophageal reflux disease without esophagitis[ICD10: K21.9] Vikki GUAMAN [facility] CPT-4: 88508 01/10/2018 OFFICE/OUTPATIENT VISIT EST Diagnosis: Gastro-esophageal reflux disease without esophagitis[ICD10: K21.9] Diagnosis: Palpitations[ICD10: R00.2] Diagnosis: Urinary tract infection, site not specified[ICD10: N39.0] Diagnosis: Generalized anxiety disorder[ICD10: F41.1] Vikki CID [facility] CPT-4: 03100 12/06/2017 ([id number]) NURSE/OUTPATIENT VISIT EST Diagnosis: 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] Diagnosis: Hypoglycemia, unspecified[ICD10: E16.2] Diagnosis: Dizziness and giddiness[ICD10: R42] Diagnosis: Occlusion and stenosis of bilateral carotid arteries[ICD10: I65.23] Vikki GUAMAN [facility] CPT-4: 14049 11/30/2017 OFFICE/OUTPATIENT VISIT EST Diagnosis: Epigastric pain[ICD10: R10.13] Diagnosis: Generalized anxiety disorder[ICD10: F41.1] Diagnosis: FLU VACCINE[ICD10: Z23] Vikki CID [facility] CPT-4: 66589 11/22/2017 ([id number]) OFFICE/OUTPATIENT VISIT EST Diagnosis: Essential (primary) hypertension[ICD10: I10] Diagnosis: Hypoglycemia, unspecified[ICD10: E16.2] Diagnosis: Gastro-esophageal reflux disease without esophagitis[ICD10: K21.9] Vikki GUAMAN [facility] CPT-4: 61910 10/20/2017 ([id number]) OFFICE/OUTPATIENT VISIT EST Diagnosis: Dizziness and giddiness[ICD10: R42] Jennifer GUAMAN [facility] CPT-4: 87204 09/27/2017 ([id number]) OFFICE/OUTPATIENT VISIT EST Diagnosis: Cervicalgia[ICD10: M54.2] Diagnosis: Other spondylosis with radiculopathy, cervical region[ICD10: M47.22] Vikki GUAMAN [facility] CPT-4: 99411 08/16/2017 ([id number]) OFFICE/OUTPATIENT VISIT EST Diagnosis: Hypoglycemia, unspecified[ICD10: E16.2] Diagnosis: Other spondylosis with radiculopathy, cervical region[ICD10: M47.22] Diagnosis: Vertigo of central origin, 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] Diagnosis: 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] [facility] 57098 07/07/2017 ([id number]) OFFICE/OUTPATIENT VISIT EST Diagnosis: Benign paroxysmal vertigo, bilateral[ICD10: H81.13] Diagnosis: Otalgia, bilateral[ICD10: H92.03] Jennifer [facility]AMAN [facility] CPT-4: 07120 05/30/2017 ([id number]) OFFICE/OUTPATIENT VISIT EST Diagnosis: Low back pain[ICD10: M54.5] Diagnosis: Radiculopathy, lumbosacral region[ICD10: M54.17] Diagnosis: Left lower quadrant pain[ICD10: R10.32] Vikki Ciscofunmilayosakshi KEELUTHER Alyssa GUAMAN 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 CPT-4: 19059 10/25/2016 ([id number]) OFFICE/OUTPATIENT VISIT EST Diagnosis: Left lower quadrant pain[ICD10: R10.32] Diagnosis: Low back pain[ICD10: M54.5] Vikki RUBI [facility] CPT-4: 64941 09/20/2016 ([id number]) OFFICE/OUTPATIENT VISIT EST Diagnosis: Mixed hyperlipidemia[ICD10: E78.2] Diagnosis: Essential (primary) hypertension[ICD10: I10] Diagnosis: Hypoglycemia, unspecified[ICD10: E16.2] Vikki [facility]AMAN [facility] CPT-4: 89097 05/13/2016 ([id number]) OFFICE/OUTPATIENT VISIT EST Diagnosis: Impaired fasting glucose[ICD10: R73.01] Diagnosis: Mastodynia[ICD10: N64.4] Diagnosis: Mixed hyperlipidemia[ICD10: E78.2] Diagnosis: Essential (primary) hypertension[ICD10: I10] Diagnosis: Other fatigue[ICD10: R53.83] Vikki [facility]AMAN [facility] CPT-4: 15378 05/12/2016 ([id number]) OFFICE/OUTPATIENT VISIT EST Diagnosis: Acute upper respiratory infection, unspecified[ICD10: J06.9] Yue Moya VIKKI GUAMAN [facility] CPT-4: 80380 03/18/2016 ([id number]) OFFICE/OUTPATIENT VISIT EST Diagnosis: Acute mastoiditis without complications, right ear[ICD10: H70.001] Vikki Deniz GUAMAN [facility] CPT-4: 13787 02/06/2016 ([id number]) OFFICE/OUTPATIENT VISIT EST Diagnosis: FLU VACCINE[ICD10: Z23] Vikki BALL 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 CPT-4: 61111 11/25/2015 ([id number]) OFFICE/OUTPATIENT VISIT EST Diagnosis: Constipation, unspecified[ICD10: K59.00] Vikki GUAMAN DO [facility] CPT-4: 80154 08/26/2015 ([id number]) OFFICE/OUTPATIENT VISIT EST Diagnosis: Essential (primary) hypertension[ICD10: I10] Diagnosis: Mixed hyperlipidemia[ICD10: E78.2] Diagnosis: Chronic kidney disease, stage 1[ICD10: N18.1] Vikki GUAMAN [facility] CPT-4: 25975 05/21/2015 ([id number]) OFFICE/OUTPATIENT VISIT EST Diagnosis: Muscle weakness (generalized)[ICD10: M62.81] Diagnosis: Dizziness and giddiness[ICD10: R42] Diagnosis: Essential (primary) hypertension[ICD10: I10] Diagnosis: History of falling[ICD10: Z91.81] Vikkiluther KEARNEYJEANNA GUAMAN [facility] CPT-4: 25606 02/19/2015 ([id number]) OFFICE/OUTPATIENT VISIT EST Diagnosis: FLU VACCINE[ICD10: Z23] Vikki Peckbhavya VIKKI Alyssa BALL [facility] CPT-4: 97148 12/20/2014 ([id number]) OFFICE/OUTPATIENT VISIT EST Diagnosis: Acute renal failure[ICD9: 584.9] Diagnosis: POLYURIA[ICD9: 788.42] Vikkiluther KEARNEYQUELINE AlejandraSujata MATY Rees [facility] CPT-4: 84762 11/19/2014 ([id number]) OFFICE/OUTPATIENT VISIT EST Diagnosis: HYPERLIPIDEMIA NEC/NOS[ICD9: 272.4] Diagnosis: HYPERTENSION[ICD9: 401.9] Diagnosis: CAD[ICD9: 414.00] Diagnosis: Hyperglycemia[ICD9: 790.29] Diagnosis: MALAISE AND FATIGUE[ICD9: 780.79] Vikki [facility]AN [facility] CPT-4: 14277 11/14/2014 ([id number]) OFFICE/OUTPATIENT VISIT EST Diagnosis: MALAISE AND FATIGUE[ICD9: 780.79] Diagnosis: HYPOGLYCEMIA[ICD9: 251.2] Diagnosis: Grieving[ICD9: 309.0] Diagnosis: ABDOMINAL PAIN[ICD9: 789.00] Vikki [facility] CPT-4: 07727 11/13/2014 OFFICE/OUTPATIENT VISIT EST Diagnosis: CERUMEN IMPACTION[ICD9: 380.4] Diagnosis: EUSTACHIAN TUBE DYSFUNCTION[ICD9: 381.81] Jessenia Penny VIKKI GUAMAN [facility] CPT-4: 25963 09/27/2014 ([id number]) OFFICE/OUTPATIENT VISIT EST Diagnosis: Leg pain[ICD9: 729.5] Diagnosis: SUPERFIC PHLEBITIS-LEG[ICD9: 451.0] Vkiki [facility]AN [facility] CPT-4: 62640 07/11/2014 ([id number]) OFFICE/OUTPATIENT VISIT EST Diagnosis: Thoracic back pain[ICD9: 724.1] Diagnosis: SPASM OF MUSCLE[ICD9: 728.85] Vikki [facility] CPT-4: 87734 05/23/2014 ([id number]) OFFICE/OUTPATIENT VISIT EST Diagnosis: DIZZINESS/VERTIGO[ICD9: 780.4] Diagnosis: Benign positional vertigo[ICD9: 386.11] Diagnosis: HYPERTENSION[ICD9: 401.9] Diagnosis: Suspicious nevus[ICD9: 238.2] Vikki [facility]AN [facility] CPT-4: 81230 03/20/2014 ([id number]) OFFICE/OUTPATIENT VISIT EST Diagnosis: FLU VACCINE[ICD10: Z23] Vikki [facility] CPT-4: 83554 12/21/2013 OFFICE/OUTPATIENT VISIT EST Diagnosis: SINUSITIS, ACUTE[ICD9: 461.9] Diagnosis: EUSTACHIAN TUBE DYSFUNCTION[ICD9: 381.81] [facility]: 95964 10/17/2013 ([id number]) OFFICE/OUTPATIENT VISIT EST Diagnosis: DIZZINESS/VERTIGO[ICD9: 780.4] Diagnosis: HYPERTENSION[ICD9: 401.9] Vikki PECK [facility] CPT-4: 25709 09/24/2013 ([id number]) OFFICE/OUTPATIENT VISIT EST Diagnosis: HYPERTENSION[ICD9: 401.9] Diagnosis: MALAISE AND FATIGUE[ICD9: 780.79] Diagnosis: SINUSITIS, ACUTE[ICD9: 461.9] [facility]: 28634 05/31/2013 ([id number]) OFFICE/OUTPATIENT VISIT EST Diagnosis: HYPERLIPIDEMIA NEC/NOS[ICD9: 272.4] Diagnosis: HYPERTENSION[ICD9: 401.9] Diagnosis: B12 DEFIC ANEMIA NEC[ICD9: 281.1] Diagnosis: HYPOGLYCEMIA[ICD9: 251.2] [facility] 07525 03/28/2013 OFFICE/OUTPATIENT VISIT EST Diagnosis: COUGH[ICD9: 786.2] Jessenia [facility]: 14206 03/26/2013 OFFICE/OUTPATIENT VISIT EST Diagnosis: COUGH[ICD9: 786.2] Diagnosis: URI, ACUTE[ICD9: 465.9] Jessenia [facility] CPT-4: 89234 12/19/2012 ([id number]) OFFICE/OUTPATIENT VISIT EST Diagnosis: HYPERTENSION[ICD9: 401.9] Diagnosis: CEPHALGIA[ICD9: 784.0] Diagnosis: ANXIETY STATE NOS[ICD9: 300.00] Diagnosis: FLU VACCINE[ICD9: V04.81] Vikki [facility] CPT-[facility]: 23347 11/27/2012 ([id number]) OFFICE/OUTPATIENT VISIT EST Diagnosis: DIZZINESS/VERTIGO[ICD9: 780.4] Diagnosis: SINUSITIS, ACUTE[ICD9: 461.9] Diagnosis: Benign positional vertigo[ICD9: 386.11] Vikki [facility]AMAN [facility] CPT-4: 75650 10/04/2012 OFFICE/OUTPATIENT VISIT EST Diagnosis: OTITIS MEDIA NOS[ICD9: 382.9] Vikki GUAMAN [facility] CPT-4: 95705 07/27/2012 OFFICE/OUTPATIENT VISIT EST Diagnosis: Perforation of ear drum[ICD9: 384.20] Diagnosis: SINUSITIS, ACUTE[ICD9: 461.9] Vikki [facility]AMAN [facility] CPT-4: 72351 07/14/2012 ([id number]) OFFICE/OUTPATIENT VISIT EST Diagnosis: Mastalgia[ICD9: 611.71] Vikki [facility] CPT-4: 11548 06/08/2012 ([id number]) OFFICE/OUTPATIENT VISIT EST Diagnosis: HYPERLIPIDEMIA NEC/NOS[ICD9: 272.4] Diagnosis: HYPERTENSION[ICD9: 401.9] Diagnosis: DIZZINESS/VERTIGO[ICD9: 780.4] Diagnosis: Hyperglycemia[ICD9: 790.29] Diagnosis: MALAISE AND FATIGUE[ICD9: 780.79] [facility]: 35204 02/23/2012 ([id number]) OFFICE/OUTPATIENT VISIT EST Diagnosis: EUSTACHIAN TUBE DYSFUNCTION[ICD9: 381.81] Diagnosis: DIZZINESS/VERTIGO[ICD9: 780.4] Diagnosis: ABDOMINAL PAIN[ICD9: 789.00] Diagnosis: GERD[ICD9: 530.81] Diagnosis: CERUMEN IMPACTION[ICD9: 380.4] Vikki [facility]AMAN [facility] CPT-4: 87836 02/22/2012 OFFICE/OUTPATIENT VISIT EST Diagnosis: ABDOMINAL PAIN[ICD9: 789.00] Diagnosis: DYSPEPSIA[ICD9: 536.8] Vikki Rees [facility] CPT-4: 61849 12/28/2011 ([id number]) OFFICE/OUTPATIENT VISIT EST Diagnosis: ABDOMINAL PAIN[ICD9: 789.00] Diagnosis: DYSPEPSIA[ICD9: 536.8] Diagnosis: IBS[ICD9: 564.1] Vikki [facility]AMAN [facility] CPT - 4: 09684 12/15/2011 OFFICE/OUTPATIENT VISIT EST Diagnosis: DIZZINESS/VERTIGO[ICD9: 780.4] Diagnosis: HYPOGLYCEMIA[ICD9: 251.2] Vikki MARTINEZ [facility] CPT-4: 41113 09/21/2011 ([id number]) OFFICE/OUTPATIENT VISIT EST Diagnosis: URINARY TRACT INFECTION[ICD9: 599.0] Vikki [facility]AMAN [facility] CPT-4: 43384 09/16/2011 ([id number]) OFFICE/OUTPATIENT VISIT EST Diagnosis: HYPERLIPIDEMIA NEC/NOS[ICD9: 272.4] Diagnosis: HYPERTENSION[ICD9: 401.9] Diagnosis: MALAISE AND FATIGUE[ICD9: 780.79] Diagnosis: DIZZINESS/VERTIGO[ICD9: 780.4] Vikki [facility]AMAN [facility] CPT-4: 84245 09/15/2011 ([id number]) OFFICE/OUTPATIENT VISIT EST Diagnosis: DIZZINESS/VERTIGO[ICD9: 780.4] Diagnosis: MALAISE AND FATIGUE[ICD9: 780.79] Diagnosis: HYPERTENSION[ICD9: 401.9] Vikki [facility]ARTINEZ [facility] CPT-4: 07282 09/13/2011 OFFICE/OUTPATIENT VISIT EST Diagnosis: LUMB/LUMBOSAC DISC DEGEN[ICD9: 722.52] Diagnosis: Radiculopathy of leg[ICD9: 724.4] Diagnosis: 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] Diagnosis: SPINAL ENTHESOPATHY[ICD9: 720.1] Vikki [facility]AMAN [facility] CPT-4: 92166 08/16/2011 ([id number]) OFFICE/OUTPATIENT VISIT EST Diagnosis: PAIN, LOWER BACK[ICD9: 724.2] Diagnosis: SPASM OF MUSCLE[ICD9: 728.85] Diagnosis: SCIATICA[ICD9: 724.3] Diagnosis: Lumbar degenerative disc disease[ICD9: 722.52] Vikki [facility]AMAN [facility] CPT-4: 75654 08/03/2011 ([id number]) OFFICE/OUTPATIENT VISIT EST Diagnosis: PAIN IN THORACIC SPINE[ICD9: 724.1] Diagnosis: SPASM OF MUSCLE[ICD9: 728.85] Vikki [facility]AMAN [facility] CPT-4: 94282 07/26/2011 ([id number]) OFFICE/OUTPATIENT VISIT EST Diagnosis: PAIN, LOWER BACK[ICD9: 724.2] Diagnosis: SPASM OF MUSCLE[ICD9: 728.85] Diagnosis: Sacroiliac dysfunction[ICD9: 739.4] Diagnosis: Lumbar degenerative disc disease[ICD9: 722.52] Vikki [facility]AMAN [facility] CPT-4: 93273 06/28/2011 OFFICE/OUTPATIENT VISIT EST Diagnosis: MALAISE AND FATIGUE[ICD9: 780.79] Diagnosis: HYPOTENSION[ICD9: 458.9] Diagnosis: CAD[ICD9: 414.00] Vikki [facility]AMAN [facility] CPT-4: 29724 03/31/2011 OFFICE/OUTPATIENT VISIT EST Diagnosis: SINUSITIS, ACUTE[ICD9: 461.9] Diagnosis: PHARYNGITIS, ACUTE[ICD9: 462] Diagnosis: CERUMEN IMPACTION[ICD9: 380.4] Vikki [facility]AMAN [facility] CPT-4: 36857 02/11/2011 OFFICE/OUTPATIENT VISIT EST Diagnosis: PAIN IN THORACIC SPINE[ICD9: 724.1] Diagnosis: GERD[ICD9: 530.81] Diagnosis: DIZZINESS/VERTIGO[ICD9: 780.4] Vikki [facility]AMAN [facility] CPT-4: 83173 10/15/2010 OFFICE/OUTPATIENT VISIT EST Vikki [facility]ARTINEZ [facility] CPT- 4: 08895 09/29/2010 ([id number]) OFFICE/OUTPATIENT VISIT EST Vikki [facility] CPT-4: 25350 07/02/2010 ([id number]) OFFICE/OUTPATIENT VISIT, EST Diagnosis: PAIN, LOWER BACK[ICD9: 724.2] Vikki PIKE [facility] CPT-4: 73480 04/06/2010 ([id number]) OFFICE/OUTPATIENT VISIT, EST Vikki [facility] CPT-4: 31095 04/01/2010 ([id number]) OFFICE/OUTPATIENT VISIT, EST Vikki [facility] CPT-4: 47971 01/22/2010 ([id number]) OFFICE/OUTPATIENT VISIT, EST Vikki [facility] CPT-4: 37559 12/02/2009 ([id number]) OFFICE/OUTPATIENT VISIT, EST Vikki [facility] CPT-4: 46901 10/21/2009 ([id number]) OFFICE/OUTPATIENT VISIT, EST Vikki [facility] CPT-4: 89897 09/10/2009 ([id number]) OFFICE/OUTPATIENT VISIT, EST Vikki [facility] CPT-4: 44125 08/11/2009 ([id number]) OFFICE/OUTPATIENT VISIT, EST Vikki [facility] CPT-4: 21606 06/09/2009 Plan of Care Planned Activity Notes Codes Status Date Visit Diagnosis Plan: Generalized anxiety disorder Dis cussion: Stable ICD-9 : 300.00 ICD-10 : F41.1 04/03/2019 Visit Diagnosis Plan: Essential (primary) hypertension Discussion: Stable Follow Up: 1 months ICD-9 : 401.9 ICD-10 : I10 04/03/2019 Patient Education: metoprolol tartrate- [employer] [facility] [id number] [email or web address]/getResource/[email or web address] Completed 04/03/2019 Visit Diagnosis Plan: Palpitations Discussion: Continu e higher dose of metoprolol ICD-9 : 785.1 ICD-10 : R00.2 03/20/2019 Visit Diagnosis Plan: Essential (primary) hypertension Discussion: Improving with higher dose of metoprolol Recheck 2weeks ICD-9 : 401.9 ICD-10 : I10 03/20/2019 Appointment: Vikki Guamantel: [address] [place] [address] FOLLOW UP 03/20/2019 Appointment: Vikki Guamantel: [address] [place] [address] 03/13/2019--moved up to [facility] 03/13/19 at 4pm (km) [place] 03/15/2019 Visit Diagnosis Plan: Essential hypertension Discussio n: Increase metoprolol to 25mg q AM and 50mg po q pM Recheck 1 week ICD-9 : 401.9 ICD-10 : I10 03/13/2019 Visit Diagnosis Plan: Palpitations Discussion: Check C BC, CMP, TSH ICD-9 : 785.1 ICD-10 : R00.2 03/13/2019 Appointment: Vikki Guamantel: [address] [place] [address] BP CHECK 03/13/2019 Appointment: Vikki Guamantel: [address] [place] [address] ACUTE ILLNESS 03/13/2019 Patient Education: metoprolol tartrate- [employer] [facility] [id number] [email or web address].com/samplemd/resources/getResource/61/[email or web address] Completed 03/13/2019 Care Plan: X-RAY EXAM NECK SPINE 4/5VWS LOINC : 97085-4 Pending 03/13/2019 Care Plan: X-RAY EXAM THORAC SPINE4/>VW LOINC : 90314-2 Pending 03/13/2019 Appointment: Vikki Guamanl: [address] [place], [place] [phone] [place] LAB 01/23/2019 Appointment: Vikki Guaman WPtel: [address] [place], [place] [phone] [place] INJECTION 12/26/2018 Patient Education: INFLUENZA VACCINE CDC Completed 12/26/2018 Appointment: Vikki Guaman WPtel: [address] [place], [place] [phone] LAB 12/15/2018 Visit Diagnosis Plan: Acute serous [...] ICD-10 : H65.02 11/07/2018 Appointment: Jennifer Rosario [address] [place] [address] ACUTE ILLNESS 11/07/2018 Visit Diagnosis Plan: Essential (primary) hypertension Discussion: Stable Check CMP ICD-9 : 401.9 ICD-10 : I10 08/14/2018 Visit Diagnosis Plan: Other fatigue Discussion: Check CBC, TSH ICD-9 : 780.79 ICD-10 : R53.83 08/14/2018 Visit Diagnosis Plan: Hypoglycemia, unspecified Discus james: Monitor BS At least 6 small meals a day each with protein ICD-9 : 251.2 ICD-10 : E16.2 08/14/2018 Visit Diagnosis Plan: Urinary tract infection, site no t specified Discussion: Started an old abx prescription ICD-9 : 599.0 ICD-10 : N39.0 08/14/2018 Appointment: Vikki Guaman WPtel: [address] [place] [address] FOLLOW UP 08/14/2018 Visit Diagnosis Plan: Urinary tract infection, site no t specified Discussion: Macrobid 100mg po BID for 1 week ICD-9 : 599.0 ICD-10 : N39.0 05/10/2018 Visit Diagnosis Plan: Gastro-esophageal reflux disease without esophagitis Discussion: Stable on omeprazole Follow Up: 3 months ICD-9 : 530.81 ICD-10 : K21.9 05/10/2018 Visit Diagnosis Plan: Essential (primary) hypertension Discussion: Stable Sees Dr. Brown this month ICD-9 : 401.9 ICD-10 : I10 05/10/2018 Appointment: Vikki Guaman WPtel: [address] [place], [place] [phone] US FOLLOW UP 05/10/2018 Patient Education: metoprolol tartrate- [employer] [facility] [id number] [email or web address]/[email or web address]/resources/getResource/[email or web address] Completed 05/10/2018 Appointment: Vikki Guaman WPtel: [address] [place], [place] [phone] US CANCELED 04/21/2018 Visit Diagnosis Plan: Gastro-esophageal reflux disease without esophagitis Discussion: Continue protonix and carafate Proceed with updated EGD ICD-9 : 530.81 ICD-10 : K21.9 02/14/2018 Visit Diagnosis Plan: Epigastric pain Discussion: [facility] k CT abdomen/pelvis due to ongoing abdominal pain ICD-9 : 789.06 ICD-10 : R10.13 02/14/2018 Appointment: Vikki Guaman WPtel: [address] [place], [place] [phone] US FOLLOW UP 02/14/2018 Care Plan: CT PELVIS W/O DYE LOINC : 361 08-9 Pending 02/14/2018 Care Plan: CT ABDOMEN W/O DYE LOINC : 36 103-0 Pending 02/14/2018 Care Plan: Referral Order SNOMED-CT : 30 [id number] Pending 02/14/2018 Visit Diagnosis Plan: Atherosclerotic he art disease of [place] coronary artery without angina pectoris Discussion: S/P cardiac cath--doing medi pauline management with imdur and metoprolol increased Has fwup with cardiology next week Discussed cardiac rehab ICD-9 : 414.00 ICD-10 : I25.10 01/10/2018 Visit Diagnosis Plan: Essential (primary) hypertension Discussion: Stable ICD-9 : 401.9 ICD-10 : I10 01/10/2018 Visit Diagnosis Plan: Gastro-esophageal reflux disease without esophagitis Discussion: Continue protonix at BID dosing and carafate BID Follow Up: 2 months ICD-9 : 530.81 ICD-10 : K21.9 01/10/2018 Visit Diagnosis Plan: Generalized anxiety disorder Dis cussion: Stable ICD-9 : 300.00 ICD-10 : F41.1 01/10/2018 Appointment: Vikki Guamantel: [address] [place], [place] [phone] FOLLOW UP 01/10/2018 Visit Diagnosis Plan: Gastro-esophageal reflux disease without esophagitis Discussion: Continue protonix at BID dosing Continue carafate at q AC and HS dosing for 2 more weeks then decrease to BID dosing Follow Up: 4 weeks ICD-9 : 530.81 ICD-10 : K21.9 12/06/2017 Visit Diagnosis Plan: Generalized anxiety disorder Dis cussion: Increase xanax to BID dosing especially with upcoming cardiac testing which is already making patient more anxious and worried ICD-9 : 300.00 ICD-10 : F41.1 12/06/2017 Visit Diagnosis Plan: Palpitations Discussion: Cardilo logy going to schedule Lexiscan ICD-9 : 785.1 ICD-10 : R00.2 12/06/2017 Visit Diagnosis Plan: Urinary tract infection, site no t specified Discussion: Reculture urine ICD-9 : 599.0 ICD-10 : N39.0 12/06/2017 Appointment: Vikki Guamantel: [address] [place], [place] [phone] FOLLOW UP 12/06/2017 Patient Education: Patient Medication Summary Completed 12/06/2017 Appointment: Vikki Guamantel: [address] [place], [place] [phone] LAB 11/30/2017 Patient Education: Patient Medication Summary Completed 11/30/2017 Visit Diagnosis Plan: Generalized anxiety disorder Dis cussion: Did discuss increased risk of benzodiazepines causing dementia but at this time will stay at xanax 0.25mg po BID ICD-9 : 300.00 ICD-10 : F41.1 11/22/2017 Visit Diagnosis Plan: Epigastric pain Discussion: Cont inue protonix and carafate but make into a slurry Flu shot given Discussed EGD if symptoms persist Follow Up: 2 weeks ICD-9 : 789.06 ICD-10 : R10.13 11/22/2017 Appointment: Vikki Guaman WPtel: [address] [place] [address] FOLLOW UP 11/22/2017 Patient Education: Patient Medication Summary Completed 11/22/2017 Visit Diagnosis Plan: Gastro-esophageal reflux disease without esophagitis Discussion: Change to protonix 40mg po BID Follow Up: 1 months ICD-9 : 530.81 ICD-10 : K21.9 10/20/2017 Visit Diagnosis Plan: Essential (primary) hypertension Discussion: Has hydralazine to use prn per cardiology Going to do 30 day holter monitor ICD-9 : 401.9 ICD-10 : I10 10/20/2017 Visit Diagnosis Plan: Hypoglycemia, unspecified Discus james: 6 small meals a day--each with protein Increase fluid intake ICD-9 : 251.2 ICD-10 : E16.2 10/20/2017 Appointment: Vikki Guaman WPtel: [address] [place] [address] ACUTE ILLNESS 10/20/2017 Patient Education: Patient Medication Summary Completed 10/20/2017 Visit Diagnosis Plan: Dizziness and giddiness Discussi on: blood work to be completed in office including cmp, cbc, troponin to rule out glucose intolerance, infection, dehydration. 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 brown's office. will have front office make appt. patient has carotid doppler annually. ICD-9 : 780.4 ICD-10 : R42 09/27/2017 Appointment: Jennifer Rosario [address] [place] [address] ACUTE ILLNESS 09/27/2017 Patient Education: Patient Medication Summary Completed 09/27/2017 Visit Diagnosis Plan: Cervicalgia Discussion: Complete course of PT since symptoms improved Continue stretching exercises Notify if symptoms return or worsen ICD-9 : 723.1 ICD-10 : M54.2 08/16/2017 Appointment: Vikki Guaman WPtel: [address] [place] [address] FOLLOW UP 08/16/2017 Patient Education: Patient Medication Summary Completed 08/16/2017 Visit Diagnosis Plan: Vertigo of central origin, bilat eral Discussion: Discussed PT for vestibular therapy ICD-9 : 386.2 ICD-10 : H81.43 07/07/2017 Visit Diagnosis Plan: Other spondylosis with radiculop athy, cervical region Discussion: Check MRI of cervical spine ICD-9 : 721.0 ICD-10 : M47.22 07/07/2017 Visit Diagnosis Plan: Hypoglycemia, unspecified Discus james: Eat something with protein every 2 hrs ICD-9 : 251.2 ICD-10 : E16.2 07/07/2017 Appointment: Vikki Guaman WPtel: [phone] 07/07/2017 Patient Education: Patient Medication Summary Completed 07/07/2017 Care Plan: MRI NECK SPINE W/O DYE LOINC : 74508-6 Pending 07/07/2017 Visit Diagnosis Plan: Benign paroxysmal vertigo, bilat [...] ICD-9 : 386.11 ICD-10 : H81.13 05/30/2017 Visit Diagnosis Plan: Otalgia, bilateral Discussion: k enalog 40 mg given to patient im. instructed patient to monitor blood sugar at home due to risk of increased sugar. instructed patient to rtc on tuesday if no improvement and may require antibiotic. ICD-9 : 388.70 ICD-10 : H92.03 05/30/2017 Appointment: Jennifer Rosario [address] [place], [place] [id number] ACUTE ILLNESS 05/30/2017 Patient Education: Patient Medication Summary Completed 05/30/2017 Visit Diagnosis Plan: Low back pain Discussion: Stretc hes Topical aspercreme Tylenol 1 po TID ICD-9 : 724.2 ICD-10 : M54.5 04/18/2017 Visit Diagnosis Plan: Radiculopathy, lumbosacral regio n Discussion: As above ICD-9 : 724.4 ICD-10 : M54.17 04/18/2017 Visit Diagnosis Plan: Left lower quadrant pain Discuss ion: Culture urine Notify if worsens ICD-9 : 789.04 ICD-10 : R10.32 04/18/2017 Appointment: Vikki Guaman WPtel: [address] [place], [place] [phone] ACUTE ILLNESS 04/18/2017 Patient Education: Patient Medication Summary Completed 04/18/2017 Appointment: Vikki Guaman WPtel: [address] [place], [place] [phone] US INJECTION 12/10/2016 Patient Education: Patient Medication Summary Completed 12/10/2016 Appointment: Vikki Guaamn WPtel: [address] [place], [place] [phone] LAB 11/01/2016 Patient Education: Patient Medication Summary Completed 11/01/2016 Visit Diagnosis Plan: Other intervertebral disc degene ration, lumbar region Follow Up: 3 months ICD-9 : 722.52 ICD-10 : M51.36 10/25/2016 Visit Diagnosis Plan: Pain in thoracic spine Discussio n: PT has helped Continue stretches and walking [facility] ICD-9 : 724.1 ICD-10 : M54.6 10/25/2016 Appointment: Vikki Guaman WPtel: [address] [place], [place] [phone] FOLLOW UP 10/25/2016 Patient Education: Patient Medication Summary Completed 10/25/2016 Visit Diagnosis Plan: Left lower quadrant pain Discuss ion: Had CT scan of abdomen/pelvis in May 2016 and normal colonoscopy in December 2014 ICD-9 : 789.04 ICD-10 : R10.32 09/20/2016 Visit Diagnosis Plan: Low back pain Discussion: Start PT for low back- Seems like abdominal pain is radiating from low back Follow Up: 5 weeks ICD-9 : 724.2 ICD-10 : M54.5 09/20/2016 Appointment: Vikki Guaman WPtel: [address] [place], [place] [phone] 09/20/2016 Patient Education: Patient Medication Summary Completed 09/20/2016 Appointment: Vikki Guaman WPtel: [address] [place] [address] LAB 05/13/2016 Patient Education: Patient Medication Summary Completed 05/13/2016 Visit Diagnosis Plan: Mixed hyperlipidemia Discussion: Check lipids ICD-9 : 272.4 ICD-10 : E78.2 05/12/2016 Visit Diagnosis Plan: Mastodynia Discussion: Check Maurice ateral diagnostic mammogram with US ICD-9 : 611.71 ICD-10 : N64.4 05/12/2016 Visit Diagnosis Plan: Impaired fasting glucose Discuss ion: Return in AM for CMP, HbA1C Accuchecks daily Diet/Exercise discussed at length ICD-9 : 790.29 ICD-10 : R73.01 05/12/2016 Visit Diagnosis Plan: Other fatigue Discussion: Check CBC, TSH ICD-9 : 780.79 ICD-10 : R53.83 05/12/2016 Appointment: Vikki Guaman WPtel: [address] [place], [place] [id number] 3/7 confirmed `sl ACUTE ILLNESS 05/12/2016 Patient Education: Patient Medication Summary Completed 05/12/2016 Care Plan: MAMMOGRAM SCREENING LOINC : 2 6347-5 Pending 05/12/2016 Visit Diagnosis Plan: Acute upper respiratory infectio n, unspecified Discussion: Exam is reassuring Likely viral illness Supportive care reviewed and encouraged Follow up PRN ICD-9 : 465.9 ICD-10 : J06.9 03/18/2016 Appointment: Yue Moya [address] [place], [place] [id number] ACUTE ILLNESS 03/18/2016 Patient Education: Patient Medication Summary Completed 03/18/2016 Visit Plan: Supportive care. Rest, Fluid s, Tylenol/Motrin prn fever or bodyaches. Notify if worsening symptoms. 02/06/2016 Appointment: Vikki Guaman WPtel: [address] [place] [address] ACUTE ILLNESS 02/06/2016 Patient Education: Patient Medication Summary Completed 02/06/2016 Appointment: Vikki Guaman WPtel: [address] [place], [place] [id number] [place] INJECTION 12/12/2015 Patient Education: Patient Medication Summary Completed 12/12/2015 Appointment: Vikki Guaman WPtel: [address] [place], [place] [phone] [place] LAB 11/25/2015 Patient Education: Patient Medication Summary Completed 11/25/2015 Visit Plan: Add miralax daily Use daily probiotic and metamucil and push fluids Notify if worsens/persists 08/26/2015 Appointment: Vikki Guaman WPtel: [address] [place] [address] 08/25/15 confirmed ~sl ACUTE ILLNESS 08/26/2015 Patient Education: Patient Medication Summary Completed 08/26/2015 Visit Plan: No NSAIDs Kidney function di scussed Discussed hydration Monitor lab every 4months so will check CMP, HbA1C next month 05/21/2015 Appointment: Vikki Guaman WPtel: [address] [place] [address] 05/19 confirmed ~sl ACUTE ILLNESS 05/21/2015 Patient Education: Patient Medication Summary Completed 05/21/2015 Visit Plan: Vestibular exercises Refill flonase Strict low Na diet--discussed that needs to read labels Rx for walker with chair given due to muscle weakness/unsteadiness Has carotids and abdominal aorta and legs checked in March Check Chem 7 02/19/2015 Appointment: Vikki Guaman WPtel: [address] [place] [address] 02/18/15 appt confirmed cn FOLLOW UP 02/19 Patient Education: Patient Medication Summary Completed 02/19/2015 Patient Education: Vertigo Completed 1 04/22/2014 Appointment: Vikki Guaman WPtel: [address] [place], [place] [phone] [place] INJECTION 12/20/2014 Patient Education: Patient Medication Summary Completed 12/20/2014 Appointment: Vikki Guaman WPtel: [address] [place], [place] [phone] [place] UA 11/19/2014 Patient Education: Patient Medication Summary Completed 11/19/2014 Referral: Edy Cheek WPtel: #1 [facility] Ronny Hoyt [id number] [place] Referral Completed 11/18/2014 Appointment: Vikki Guaman WPtel: [address] [place] [address] LAB 11/14/2014 Patient Education: Patient Medication Summary Completed 11/14/2014 Visit Plan: Check CMP, CBC, TSH, Free T4 , B12, Lipids, HbA1C Discussed 6 small meals a day each with protein Would likely benefit from antidepressant Update colonoscopy 11/13/2014 Appointment: Vikki Guaman WPtel: [address] [place] [address] 11/12/14 confirmed ACUTE ILLNESS 11/13/2014 Patient Education: Patient Medication Summary Completed 11/13/2014 Visit Plan: Cerumen flush with warm wate r and peroxide - good results Resume Nasonex nasal spray daily Recommended Debrox earwax removal drops 09/27/2014 Appointment: Jessenia Francis WPtel: [address] [place] [address] ACUTE ILLNESS 09/27/2014 Patient Education: Patient Medication Summary Completed 09/27/2014 Visit Plan: Continue aspirin daily Add m eloxicam for 1week Elevate and Ice Call on Tuesday07/11/2014 Appointment: Vikki Guaman WPtel: [address] [place] [address] ACUTE ILLNESS 07/11/2014 Patient Education: Patient Medication Summary Completed 07/11/2014 Visit Plan: Been using [facility]aclofen at [facility] and has helped some PT for next 2-4weeks 05/23/2014 Appointment: Vikki Guaman WPtel: [address] [place], [place] [phone] [place] [address] Follow Up 05/23/2014 Patient Education: Patient Medication Summary Completed 05/23/2014 Appointment: Vikki Guaman WPtel: [address] [place], [place] [phone] LAB 05/10/2014 Appointment: Vikki Guaman WPtel: [address] [place], [place] [phone] feeling better, weather - FOLLOW UP 04/07 Referral: Edy Cheek WPtel: #1 [facility] Topaz Antwan Borges [id number] [place] Referral Appointment Requested 04/03/2014 Visit Plan: Continue exercise and curren t meds See surgery for removal of right arm lesion 03/20/2014 Appointment: Vikki Guaman WPtel: [address] [place], [place] [phone] FOLLOW UP 03/20/2014 Patient Education: Patient Medication Summary Completed 03/20/2014 Appointment: Vikki Guaman WPtel: [address] [place], [place] [phone] INJECTION 12/21/2013 Patient Education: Patient Medication Summary Completed 12/21/2013 Appointment: Jessenia Francis WPtel: [address] [place], [place] [phone] ACUTE ILLNESS 10/17/2013 Patient Education: Patient Medication Summary Completed 10/17/2013 Visit Plan: Discussed that likely lumbar etiology for leg weakness Will change amlodopine to low dose dyazide and see if helps legs and inner ear 09/24/2013 Appointment: Vikki Guaman WPtel: [address] [place], [place] [phone] FOLLOW UP 09/24/2013 Patient Education: Patient Medication Summary Completed 09/24/2013 Visit Plan: Ceftin and continue claritin /flonase Decrease amlodopine to 2.5mg q HS until fwup with Card due to weakness 05/31/2013 Appointment: Vikki Guaman WPtel: [address] [place] [address] ACUTE ILLNESS 05/31/2013 Patient Education: Patient Medication Summary Completed 05/31/2013 Appointment: Vikki Guaman WPtel: [address] [place] [address] LAB 03/28/2013 Patient Education: Patient Medication Summary Completed 03/28/2013 Appointment: Jessenia Francis WPtel: [address] [place] [address] ACUTE ILLNESS 03/26/2013 Patient Education: Patient Medication Summary Completed 03/26/2013 Visit Plan: Supportive care. Rest, Fluid s, Tylenol prn fever or bodyaches. Notify if worsening symptoms. Ceftin 12/19/2012 Appointment: Jessenia Francis WPtel: [address] [place] [address] ACUTE ILLNESS 12/19/2012 Patient Education: Patient Medication Summary Completed 12/19/2012 Appointment: Vikki Guaman WPtel: [address] [place] [address] BP CHECK 12/04/2012 Patient Education: Patient Medication Summary Completed 12/04/2012 Appointment: Vikki Guaman WPtel: [address] [place] [address] ER Follow UP 11/27/2012 Patient Education: Patient Medication Summary Completed 11/27/2012 Visit Plan: Restart flonase BID Use mecl izine 25mg q HS Vestibular exercises Claritin 10mg q AM See ENT if doesn't resolve 10/04/2012 Appointment: Vikki Guaman WPtel: [address] [place] [address] ACUTE ILLNESS 10/04/2012 Patient Education: Patient Medication Summary Completed 10/04/2012 Visit Plan: Will continue to observe 07/27/2012 Appointment: Vikki Guaman WPtel: [address] [place] [address] FOLLOW UP 07/27/2012 Patient Education: Patient Medication [...] ear recheck. 07/14/2012 Appointment: Evelyn Santos WPtel: [address] [place] [address] ACUTE ILLNESS 07/14/2012 Patient Education: Patient Medication Summary Completed 07/14/2012 Visit Plan: Decrease caffeine intake Kristin ck Bilateral Mammogram with US of left breast 06/08/2012 Appointment: Vikki Guaman WPtel: [address] [place] [address] ACUTE ILLNESS 06/08/2012 Patient Education: Patient Medication Summary Completed 06/08/2012 Appointment: Alisia Campbell WPtel: [address] [place] [address] appt scheduled 04/06 ACUTE ILLNESS 04/10/2012 Appointment: Vikki Guaman WPtel: [address] [place] [address] US LAB 02/23/2012 Patient Education: Patient Medication Summary Completed 02/23/2012 Visit Plan: Continue off carafate and se e how does Continue probiotic Add Vestibular exercises and use meclizine prn Continue Nasonex Check fasting lab including CMP, Lipids, CBC, TSH, Free T4, HbA1C 02/22/2012 Appointment: Vikki Guaman WPtel: [address] [place] [address] FOLLOW UP 02/22/2012 Patient Education: Patient Medication Summary Completed 02/22/2012 Visit Plan: Continue carafate for 4more weeks at current dose then decrease to BID for 2wks then q HS 12/28/2011 Appointment: Vikki Guamnatel: [address] [place] [address] FOLLOW UP 12/28/2011 Patient Education: Patient Medication Summary Completed 12/28/2011 Visit Plan: Continue omeprazole Add Judi fate 1gm po q AC Add daily probiotic 12/15/2011 Appointment: Vikki Guaman WPtel: [address] [place] [address] ACUTE ILLNESS 12/15/2011 Patient Education: Patient Medication Summary Completed 12/15/2011 Appointment: Vikki Guamantel: [address] [place] [address] [place] INJECTION 12/02/2011 Patient Education: Patient Medication Summary Completed 12/02/2011 Visit Plan: Diabetic Diet Accuchecks BID alternating times Hold onglyza and Januvia for now and continue diet and exercise and weight loss and moniter BS Discussed hypoglycemia and snack of peanut butter and crackers with juice or milk 09/21/2011 Appointment: Vikki Guamantel: [address] [place] [address] WORK IN 09/21/2011 Patient Education: Patient Medication Summary Completed 09/21/2011 Appointment: Vikki Guamantel: [address] [place], [place] [phone] UA 09/16/2011 Patient Education: Patient Medication Summary Completed 09/16/2011 Appointment: Vikki Guamantel: [address] [place], [place] [phone] LAB 09/15/2011 Patient Education: Patient Medication Summary Completed 09/15/2011 Appointment: Vikki Guamantel: [address] [place], [place] [phone] ACUTE ILLNESS 09/13/2011 Patient Education: Patient Medication Summary Completed 09/13/2011 Visit Plan: Injection to Right SI joint as above Pt will call in 3 days on pain Has PT starting in 2wks. 08/16/2011 Appointment: Vikki Guamantel: [address] [place] [address] ACUTE ILLNESS 08/16/2011 Patient Education: Patient Medication Summary Completed 08/16/2011 Visit Plan: OMT done Start PT May need u pdated MRI if need to consider epidural Prednisone 08/03/2011 Appointment: Vikki Guaman WPtel: [address] [place] [address] OMT 08/03/2011 Patient Education: Patient Medication Summary Completed 08/03/2011 Visit Plan: Flexeril and Vimovo OMT done Daily stretches 07/26/2011 Appointment: Vikki Guaman WPtel: [address] [place] [address] ACUTE ILLNESS 07/26/2011 Patient Education: Patient Medication Summary Completed 07/26/2011 Visit Plan: OMT done Daily stretches Roque st heat or biofreeze Right SI joint injection Call in 1week Vimovo BID 06/28/2011 Appointment: Vikki Guamantel: [address] [place] [address] ACUTE ILLNESS 06/28/2011 Patient Education: Patient Medication Summary Completed 06/28/2011 Appointment: Vikki Guamantel: [address] [place] [address] US LAB 04/01/2011 Patient Education: Patient Medication Summary Completed 04/01/2011 Visit Plan: Decrease amlodopine to 1.25m g daily Schedule with Cardiology Fasting lab in AM 03/31/2011 Appointment: Vikki Guamantel: [address] [place] [address] ACUTE ILLNESS 03/31/2011 Patient Education: Patient Medication Summary Completed 03/31/2011 Visit Plan: Saline nasal flushes prn. Ty lenol/Motrin prn headache. Notify if persists/symptoms worsening. Cerumen removal from ears as above 02/11/2011 Appointment: Vikki Guaman WPtel: [address] [place] [address] ACUTE ILLNESS 02/11/2011 Patient Education: Patient Medication Summary Completed 02/11/2011 Appointment: Vikki Guaman WPtel: [address] [place] [address] US INJECTION 12/09/2010 Patient Education: Patient Medication Summary Completed 12/09/2010 Visit Plan: Continue vimovo for 1more we ek Increase Omeprazole to BID for 1mo then resume QD if stomach improved Vestibular exercises with meclizine q HS for next week 10/15/2010 Appointment: Vikki Guaman WPtel: [address] [place] [address] FOLLOW UP 10/15/2010 Patient Education: Patient Medication Summary Completed 10/15/2010 Appointment: Vikki Guaman WPtel: [address] [place] [address] ACUTE ILLNESS 09/29/2010 Patient Education: Patient Medication Summary Completed 09/29/2010 Appointment: Vikki Guaman WPtel: [address] [place] [address] LAB 07/06/2010 Patient Education: Patient Medication Summary Completed 07/06/2010 Visit Plan: Saline nasal flushes prn. Ty lenol/Motrin prn headache. Notify if persists/symptoms worsening. Add Veramyst Increase Omeprazole to 20mg po BID 07/02/2010 Appointment: Vikki Guaman WPtel: [address] [place] [address] ACUTE ILLNESS 07/02/2010 Patient Education: Patient Medication Summary Completed 07/02/2010 Appointment: Vikki Guaman WPtel: [address] [place] [address] FOLLOW UP 04/06/2010 Patient Education: Patient Medication Summary Completed 04/06/2010 Appointment: Vikki Guaman WPtel: [address] [place] [address] ACUTE ILLNESS 04/01/2010 Patient Education: Patient Medication Summary Completed 04/01/2010 Visit Plan: Nasocourt sample given. Pt. will notify if symptoms are worse on Tuesday. 01/22/2010 Appointment: Alisia Campbell WPtel: [address] [place] [address] ACUTE ILLNESS 01/22/2010 Patient Education: Patient Medication Summary Completed 01/22/2010 Appointment: Vikki Guaman WPtel: [address] [place] [address] [place] INJECTION 12/10/2009 Patient Education: Patient Medication Summary Completed 12/10/2009 Appointment: Vikki Guaman WPtel: [address] [place] [address] FOLLOW UP 12/02/2009 Patient Education: Patient Medication Summary Completed 12/02/2009 Patient Education: Lexapro Completed 0 12/02/2009 Visit Plan: May proceed with hiatal ryan ia repair per Card. so will contact Dr. Mariscal's office to proceed with surgery Trial of Lexapro 5mg QD plus use xanax prn 10/21/2009 Appointment: Vikki Guaman WPtel: [address] [place] [address] FOLLOW UP 10/21/2009 Patient Education: Patient Medication Summary Completed 10/21/2009 Visit Plan: B12 given Cont oral B12 and iron Fwup 1mo for B12 Proceed with hiatal hernia repair once card clearance 09/10/2009 Appointment: Vikki Guaman WPtel: [address] [place] [address] FOLLOW UP 09/10/2009 Patient Education: Patient Medication Summary Completed 09/10/2009 Appointment: Vikki Guaman WPtel: [address] [place] [address] FOLLOW UP 08/11/2009 Patient Education: Patient Medication Summary Completed 08/11/2009 Appointment: Vikki Guaman WPtel: [phone] [facility] US LAB 06/10/2009 Patient Education: Patient Medication Summary Completed 06/10/2009 Visit Plan: Check fasting lab in AM--CMP ,Lipids, CBC, Vit D, TSH,FreeT4, B12 06/09/2009 Appointment[facility] [address] [id number] [facility] 06/09/2009 Patient Education: Patient Medication Summary Completed 06/09/2009 Referral: Edy Cheek WPtel: #1 [facility] Referral Appointment Requested Referral: Edy Cheek WPtel: #1 [facility] Referral Initiated Instructions Comment . Supportive care. [...]
--- OUTSIDE RECORDS SUMMARY | 2019-04-25 20:16 | XMS REPORT | CCD ---
Author Author Evelyne Guaman D.O. Organization [facility] Address [address] [place] [address] Phone Care Team Providers Care Vice President Underwriting Name Role Phone Vikki Guaman D.O. PP Unavailable CCM Unavailable Summary Purpose Interface Exchange Insurance Providers Payer name Policy type / Coverage type Covered libertarian ID Effective Begin Date Effective End Date WPS MEDICARE PART B [place] Medicare Part B [id number] Unknown [facility] Medicare Part B [id number] Unknown Family history Father Diagnosis Age At Onset Heart disease Unknown Mother Diagnosis Age At Onset Heart disease Unknown Cancer Unknown Social History Social History Element Codes Description Effective Dates Tobacco history SNOMED CT: 153971623 Never smoker 09/29/2010 Marital status Unknown Single [...] R10.13 11/22/2017 Active 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: [...] Instructions metoprolol tartrate 25 mg tablet RxNorm: 942160 1 Table t(s) Oral QAM and two tablets (50mg) in the evening--clarification/dose change 04/03/2019 Active Flonase Allergy Relief 50 mcg/actuation nasal spray,suspensi on RxNorm: 3955908 2 [place] Nasal every night at bedtime 03/30/2019 03/30/2019 Inactive simvastatin 40 mg tablet RxNorm: 187972 1 Tablet(s) Oral QD 020 12/24/2019 Active omeprazole 40 mg capsule,delayed release RxNorm: 058384 1 Capsu le(s) Oral QD 03/30/2019 12/24/2019 Active isosorbide mononitrate ER 30 mg tablet,extended release 24 h r RxNorm: 679818 1 Tablet(s) Oral every night at bedtime 03/30/2019 12/25/2019 Active metoprolol tartrate 25 mg tablet RxNorm: 976802 1 Table t(s) Oral QAM and two tablets (50mg) in the evening 03/30/2019 04/02/2019 Inactive omeprazole 40 mg capsule,delayed release RxNorm: 179892 1 Capsu le(s) Oral QD 03/27/2019 03/29/2019 Inactive Xanax 0.25 mg tablet RxNorm: 596052 TAKE 1 TABLET BY [facility] TWICE DAILY 1 Tablet(s) Oral two times a day as needed as needed for anxiety 03/27/2019 03/27/2019 Inactive simvastatin 40 mg tablet RxNorm: 970144 1 Tablet(s) Oral QD 020 03/29/2019 Inactive metoprolol tartrate 25 mg tablet RxNorm: 309609 1 Table t(s) Oral QAM and two tablets (50mg) in the evening 03/27/2019 03/29/2019 Inactive metoprolol tartrate 25 mg tablet RxNorm: 148073 1 Table t(s) Oral QAM and two tablets (50mg) in the evening 03/20/2019 03/26/2019 Inactive Flonase Allergy Relief 50 mcg/actuation nasal spray,suspensi on RxNorm: 5022734 2 [place] Nasal every night at bedtime 03/13/2019 03/13/2019 Inactive simvastatin 40 mg tablet RxNorm: 328446 1 Tablet(s) PO QD 01/22/2019 03/26/2019 Inactive omeprazole 40 mg capsule,delayed release RxNorm: 634005 1 Capsu le(s) Oral QD 01/10/2019 03/26/2019 Inactive Xanax 0.25 mg tablet RxNorm: 408951 TAKE 1 TABLET BY MOUTH TWIC E DAILY 01/02/2019 03/26/2019 Inactive omeprazole 40 mg capsule,delayed release RxNorm: 046166 1 Capsu le(s) PO QD 12/11/2018 01/09/2019 Inactive metoprolol tartrate 25 mg tablet RxNorm: 136982 1 Tablet(s) PO BID 11/20/2018 03/19/2019 Inactive omeprazole 40 mg capsule,delayed release RxNorm: 969166 1 Capsu le(s) PO QD 11/13/2018 12/10/2018 Inactive Flonase Allergy Relief 50 mcg/actuation nasal spray,suspensi on RxNorm: 7525495 2 [place] NASAL QHS 11/07/2018 03/12/2019 Inactive simvastatin 40 mg tablet RxNorm: 540668 1 Tablet(s) PO QD 10/23/2018 01/20/2019 Inactive simvastatin 40 mg tablet RxNorm: 363835 1 Tablet(s) PO QD 07/24/2018 10/21/2018 Inactive omeprazole 40 mg capsule,delayed release RxNorm: 297685 1 Capsu le(s) PO QD 07/13/2018 11/09/2018 Inactive simvastatin 40 mg tablet RxNorm: 442668 1 Tablet(s) PO QD 06/13/2018 07/12/2018 Inactive omeprazole 40 mg capsule,delayed release RxNorm: 720924 1 Capsu le(s) PO QD 06/13/2018 07/12/2018 Inactive Bactrim DS 800 mg-160 mg tablet RxNorm: 975473 1 Tablet(s) PO BID 0 05/12/2018 05/18/2018 Inactive Bactrim DS 800 mg-160 mg tablet RxNorm: 179964 1 Tablet(s) PO BID 0 05/12/2018 05/11/2018 Inactive Macrobid 100 mg capsule RxNorm: 709894 1 Capsule(s) PO BID 05/11/1905/16/2018 Inactive metoprolol tartrate 25 mg tablet RxNorm: 415714 1 Tablet(s) PO BID 05/10/2018 11/05/2018 Inactive Xanax 0.25 mg tablet RxNorm: 745547 TAKE 1 TABLET BY MOUTH TWIC E DAILY 02/16/2018 01/01/2019 Inactive Xanax 0.25 mg tablet RxNorm: 939119 1 Tablet(s) PO BID 02/14/2018 Inactive Protonix 40 mg tablet,delayed release RxNorm: 149006 1 Tablet(s) PO BID for stomach--replaces omeprazole 01/10/2018 05/09/2018 Inactive Carafate 1 gram tablet RxNorm: 762043 1 Tablet(s) PO AC & HS 201705/09/2018 Inactive Xanax 0.25 mg tablet RxNorm: 213365 1 Tablet(s) PO BID 01/03/201812/2017 Inactive Bactrim DS 800 mg-160 mg tablet RxNorm: 340958 1 Tablet(s) PO BID 1 12/12/2017 Inactive Bactrim DS 800 mg-160 mg tablet RxNorm: 312665 1 Tablet(s) PO BID 1 12/07/2017 Inactive Carafate 1 gram tablet RxNorm: 502589 1 Tablet(s) PO AC & HS 201712/21/2017 Inactive Protonix 40 mg tablet,delayed release RxNorm: 221782 1 Tablet(s) PO BID for stomach--replaces omeprazole 11/22/2017 01/09/2018 Inactive Protonix 40 mg tablet,delayed release RxNorm: 856275 1 Tablet(s) PO BID for stomach--replaces omeprazole 10/20/2017 11/21/2017 Inactive fluticasone 50 mcg/actuation nasal spray,suspension RxNorm: 6974548 2 [place] NASAL QD to each nostril 07/07/2017 08/13/2018 Inactive Nasonex 50 mcg/actuation [place] RxNorm: 0379942 2 [place] NASAL 201707/07/2017 Inactive omeprazole 40 mg capsule,delayed release RxNorm: 705347 1 Capsu le(s) PO QD 04/18/2017 10/19/2017 Inactive simvastatin 40 mg tablet RxNorm: 829111 1 Tablet(s) PO QD TAKE 1 TABLET EVERY DAY 04/18/2017 04/12/2018 Inactive metoprolol tartrate 25 mg tablet RxNorm: 081930 1/2 Tablet(s) PO QD 04/18/2017 01/09/2018 Inactive simvastatin 40 mg tablet RxNorm: 147337 Tablet(s) TAKE 1 TABLET EVERY DAY 10/27/2016 04/17/2017 Inactive metoprolol tartrate 25 mg tablet RxNorm: 986706 1/2 Tablet(s) PO QD 09/20/2016 03/18/2017 Inactive Flonase 50 mcg/actuation nasal spray,suspension RxNorm: 1797 933 2 [place] NASAL BID 09/20/2016 04/17/2017 Inactive omeprazole 40 mg capsule,delayed release RxNorm: 805754 1 Capsu le(s) PO QD 09/08/2016 04/17/2017 Inactive metoprolol tartrate 25 mg tablet RxNorm: 759319 1/2 Tablet(s) PO QD 06/14/2016 09/19/2016 Inactive ciprofloxacin 0.2 % ear drops in a dropperette RxNorm: 67306 6 4 Drop(s) OTIC TID for 1 week 02/06/2016 05/11/2016 Inactive cefdinir 300 mg capsule RxNorm: 980280 2 Capsule(s) PO QD 02/06/2016 02/15/2016 Inactive omeprazole 40 mg capsule,delayed release RxNorm: 284210 TAKE 1 CAPSULE EVERY DAY 11/06/2015 09/08/2016 Inactive simvastatin 40 mg tablet RxNorm: 149655 TAKE 1 TABLET EVERY DAY 05/201510/27/2016 Inactive Flonase 50 mcg/actuation nasal spray,suspension RxNorm: 1797 933 2 [place] NASAL BID 02/19/2015 09/19/2016 Inactive cefuroxime axetil 250 mg tablet RxNorm: 897200 1 Tablet(s) PO BID 0 11/21/2014 11/20/2014 Inactive cefuroxime axetil 250 mg tablet RxNorm: 679703 1 Tablet(s) PO BID 0 11/21/2014 11/27/2014 Inactive omeprazole 40 mg capsule,delayed release RxNorm: 867636 1 Capsu le(s) PO QD 10/09/2014 01/05/2015 Inactive meloxicam 7.5 mg tablet RxNorm: 177805 1 Tablet(s) PO QD 07/11/2014 0 08/09/2014 Inactive loratadine 10 mg tablet RxNorm: 346129 1 Tablet(s) PO QAM for a llergies 10/17/2013 08/13/2018 Inactive Flonase 50 mcg/actuation nasal spray,suspension RxNorm: 8963 23 2 [place] NASAL BID 10/17/2013 02/18/2015 Inactive prednisone 20 mg tablet RxNorm: 766389 2 Tablet(s) PO BID 10/17/2013 10/21/2013 Inactive Dyazide 37.5 mg-25 mg capsule RxNorm: 050821 1 Capsule(s) PO QAM 10/16/2013 Inactive Ceftin 500 mg tablet RxNorm: 107164 1 Tablet(s) PO BID 05/31/201307/2013 Inactive Ceftin 500 mg tablet RxNorm: 047421 1 Tablet(s) PO BID 03/26/2013 Inactive simvastatin 40 mg tablet RxNorm: 864077 Tablet(s) PO TA KE ONE TABLET BY MOUTH EVERY DAY 03/26/2013 10/07/2015 Inactive metoprolol tartrate 25 mg tablet RxNorm: 505340 Tablet( s) PO TAKE ONE-HALF TABLET BY MOUTH EVERY DAY 03/26/2013 11/12/2014 Inactive Ceftin 500 mg tablet RxNorm: 539786 1 Tablet(s) PO BID 12/19/2012 Inactive loratadine 10 mg tablet RxNorm: 235050 1 Tablet(s) PO QAM for a llergies 10/04/2012 12/02/2012 Inactive omeprazole 20 mg capsule,delayed release RxNorm: 691980 Capsule(s) PO TAKE ONE CAPSULE BY MOUTH TWICE DAILY 08/09/2012 10/08/2014 Inactive omeprazole 20 mg capsule,delayed release RxNorm: 771294 1 Capsu le(s) PO BID 08/09/2012 05/09/2018 Inactive Augmentin 875 mg-125 mg tablet RxNorm: 184382 1 Tablet(s) PO Q12H 0 07/14/2012 07/23/2012 Inactive Floxin Otic Drops 1 bottle Drops RxNorm: 5 Drop(s) OTIC BID 07/20/2012 Inactive metoprolol tartrate 25 mg tablet RxNorm: 552091 Tablet( s) PO TAKE ONE-HALF TABLET BY MOUTH EVERY DAY 04/11/2012 03/25/2013 Inactive simvastatin 40 mg tablet RxNorm: 347884 Tablet(s) PO TA KE ONE TABLET BY MOUTH EVERY DAY 04/11/2012 03/25/2013 Inactive lancets RxNorm: Misc Miscellaneous USE ONE TO CH JEFFERY GLUCOSE EVERY DAY 04/04/2012 05/09/2018 Inactive Carafate 1 gram tablet RxNorm: 258239 1 Tablet(s) PO AC & HS 201111/12/2014 Inactive Flagyl 500 mg tablet RxNorm: 123030 1 Tablet(s) PO TID 12/15/2011 Inactive Carafate 1 gram tablet RxNorm: 047320 1 Tablet(s) PO AC & HS 201102/12/2012 Inactive One Touch Test strips RxNorm: Miscellaneous QD 09/21/2011 05/09/2018 Inactive one touch ultra mini test strips Protonix 40 mg Tab RxNorm: 921466 1 Tablet(s) PO QD 09/13/20112011 Inactive Protonix 40 mg Tab RxNorm: 769408 1 Tablet(s) PO QD 09/13/20112011 Inactive prednisone 20 mg Tab RxNorm: 781651 1 Tablet(s) PO BID 08/03/201106/2011 Inactive Flexeril 5 mg Tab RxNorm: 109279 1 Tablet(s) PO QHS for spasm 07/2508/24/2011 Inactive Flexeril 5 mg Tab RxNorm: 297373 1 Tablet(s) PO QHS for spasm 06/2707/25/2011 Inactive amlodipine 2.5 mg Tab RxNorm: 533794 1/2 Tablet(s) PO QD replac es 5mg dose 03/31/2011 06/27/2011 Inactive simvastatin 40 mg tablet RxNorm: 707311 1 Tablet(s) PO QD 03/31/2011 03/24/2012 Inactive metoprolol tartrate 25 mg tablet RxNorm: 505037 1/2 Tablet(s) PO QD 03/31/2011 03/24/2012 Inactive omeprazole 20 mg capsule,delayed release RxNorm: 564669 1 Capsu le(s) PO BID 03/31/2011 09/12/2011 Inactive cefdinir 300 mg Cap RxNorm: 168730 2 Capsule(s) PO QD 02/11/201102/04 Inactive simvastatin 40 mg Tab RxNorm: 307836 1 Tablet(s) PO QD 02/01/2011 Inactive metoprolol tartrate 25 mg Tab RxNorm: 402019 1/2 Tablet(s) PO QD 03/30/2011 Inactive metoprolol tartrate 25 mg Tab RxNorm: 971349 1/2 Tablet(s) PO QD 12/28/2010 Inactive meclizine 25 mg Tab RxNorm: 9014902 1 Tablet(s) PO QHS 10/15/201011/2010 Inactive for dizziness Ceftin 500 mg Tab RxNorm: 762277 1 Tablet(s) PO BID 07/02/20102010 Inactive omeprazole 20 mg Cap, Delayed Release RxNorm: 493217 1 Capsule( s) PO BID 07/02/2010 12/28/2010 Inactive simvastatin 40 mg Tab RxNorm: 498763 1 Tablet(s) PO QD 06/30/201007/2018 Inactive simvastatin 40 mg Tab RxNorm: 322883 1 Tablet(s) PO QD 06/30/2010 Inactive simvastatin 40 mg Tab RxNorm: 933871 1 Tablet(s) PO QD 02/25/2010 Inactive Tessalon Perles 100 mg Cap RxNorm: 148052 1 Capsule(s) PO Q6-8H 01/28/2010 Inactive cefdinir 300 mg Cap RxNorm: 579882 1 Capsule(s) PO BID 01/22/2010 Inactive Lexapro 10 mg Tab RxNorm: 572824 1 Tablet(s) PO QD 12/02/2009 010 Inactive Cipro 250 mg Tab RxNorm: 850411 1 Tablet(s) PO BID 12/02/2009 010 Inactive Wellbutrin XL 150 mg 24 hr Tab RxNorm: 208889 1 Tablet(s) PO QAM 08/07/2009 Inactive Fish Oil 1,000 mg Cap RxNorm: 1 Capsule(s) PO QD No Start Date Active Tylenol Extra Strength 500 mg tablet RxNorm: 281745 1/2 Tablet( s) PO as needed No Start Date Active nitroglycerin 0.4 mg sublingual tablet RxNorm: 482713 Tablet(s) SL as needed No Start Date Active Calcium with Vitamin D 600 mg (1,500 mg)-400 unit tablet RxN orm: 366171 1 Tablet(s) PO QD No Start Date Active Multivitamin & Mineral Formula Tab RxNorm: 1 Tablet(s) PO QD No St art Date Active vitamin B complex capsule RxNorm: 1 Capsule(s) PO QD No Start Date Active Aspirin 81 mg Tab RxNorm: 261993 1 Tablet(s) PO QD No Start Date Active Vitamin D 1,000 unit Cap RxNorm: 983404 1 Capsule(s) PO QD No Start D ate Active Co Q-10 oral RxNorm: 30475 oral No Start Date Active metoprolol tartrate 25 mg Tab RxNorm: 049093 1/2 Tablet(s) PO QD No Start Date 12/27/2010 Inactive Nasonex 50 mcg/actuation [place] RxNorm: 7917869 2 [place] NASAL No Sta rt Date 07/06/2017 Inactive Vitamin B12 1000mcg Tablet RxNorm: 1 Tablet(s) PO QD No Start Date 11/12/2014 Inactive amlodipine 5 mg Tab RxNorm: 578183 1 Tablet(s) PO QD No Start Date Inactive simvastatin 40 mg tablet RxNorm: 156506 1 Tablet(s) PO QD No Start Date 06/12/2018 Inactive omeprazole 20 mg capsule,delayed release RxNorm: 879635 1 Capsu le(s) PO BID No Start Date 08/08/2012 Inactive omeprazole 40 mg capsule,delayed release RxNorm: 545569 1 Capsu le(s) PO QD No Start Date 06/12/2018 Inactive Nexium 40 mg Cap RxNorm: 769474 1 Capsule(s) PO QD No Start Date 01/05 Inactive Stool Softener 100 mg Tab RxNorm: 5689995 2 Tablet(s) PO BID No Sta rt Date 03/30/2011 Inactive Calcium with Vitamin D 600 mg (1,500 mg)-400 unit Tab RxNorm : 114442 1 Tablet(s) PO QD No Start Date 11/12/2014 Inactive iron 325 mg (65 mg iron) Tab RxNorm: 517032 1 Tablet(s) PO QD No St art Date 11/12/2014 Inactive Flonase 50 mcg/actuation Nasal [place] RxNorm: 440572 2 [place] DEMOND AL BID No Start Date 10/16/2013 Inactive fluticasone 50 mcg/actuation nasal spray,suspension RxNorm: 2815458 2 [place] NASAL QD to each nostril No Start Date 07/06/2017 Inactive Nasonex 50 mcg/actuation [place] RxNorm: 6251060 2 [place] NASAL QD No Start Date 07/06/2017 Inactive hydralazine 50 mg tablet RxNorm: 925188 1 Tablet(s) PO as needed for BP over 160/90 No Start Date 11/21/2017 Inactive Vimovo 500 mg-20 mg 12 hr Tab RxNorm: 470922 1 Tablet(s) PO BID No Start Date 02/10/2011 Inactive Tylenol PM 25 mg-500 mg/15 mL Oral Soln RxNorm: 9381699 1 PO QPM No Start Date 11/12/2014 Inactive Iron (Ferrous Sulfate) Oral RxNorm: Oral No Start Date 03/30/19 12 Inactive Reglan 10 mg Tab RxNorm: 701739 1 Tablet(s) PO TID before meals No Start Date 02/10/2011 Inactive Xanax 1 mg Tab RxNorm: 185525 1/2 Tablet(s) PO QD No Start Date 11/21 Inactive amlodipine 10 mg tablet RxNorm: 934857 1 Tablet(s) PO QD No Start D ate 09/23/2013 Inactive Iron (dried) Oral RxNorm: Oral No Start Date 03/30/2011 Inactiv e metoprolol tartrate 50 mg tablet RxNorm: 626535 1 Tablet(s) PO BID No Start Date 02/13/2018 Inactive Xanax 0.25 mg tablet RxNorm: 076518 1 Tablet(s) PO BID No Start Date 01/02/2018 Inactive lancets RxNorm: Miscellaneous check blood sugar at least once daily No Start Date 04/03/2012 Inactive simvastatin 40 mg Tab RxNorm: 772773 1 Tablet(s) PO QD No Start Date 02/24/2010 Inactive isosorbide mononitrate ER 30 mg tablet,extended release 24 h r RxNorm: 344318 1 Tablet(s) PO QHS No Start Date 08/13/2018 Inactive amlodipine 2.5 mg tablet RxNorm: 783308 1 Tablet(s) PO QD No Start Date 09/23/2013 Inactive isosorbide mononitrate ER 30 mg tablet,extended release 24 h r RxNorm: 080123 1 Tablet(s) PO QHS No Start Date 03/29/2019 Inactive sucralfate 1 gram tablet RxNorm: 246580 1 Tablet(s) PO QID No Start Date 05/09/2018 Inactive Fish Oil Oral RxNorm: Oral No Start Date 03/31/2011 Inactive Multiple Vitamin Oral RxNorm: Oral No Start Date 03/31/2011 Franny ctive metoprolol tartrate 25 mg tablet RxNorm: 064755 1/2 Tablet(s) P O QD No Start Date 06/13/2016 Inactive metoprolol tartrate 50 mg tablet RxNorm: 377383 1/2 Tablet(s) P O BID No Start Date 05/09/2018 Inactive Flonase Allergy Relief 50 mcg/actuation nasal spray,suspensi on RxNorm: 3447788 2 [place] NASAL QHS No Start Date 11/06/2018 Inactive [...] Date S vice Location COMPLETE BLOOD COUNT [id number] WBC 7.1 10e9/L 03/13/19 20 Unknown COMPLETE BLOOD COUNT [id number] RBC 4.16 10e12/L 2019 Unknown COMPLETE BLOOD COUNT [id number] HEMOGLOBIN 12.4 g/dL 03/13/19 Unknown COMPLETE BLOOD COUNT [id number] HEMATOCRIT 39.3 % 03/13/19 20 Unknown COMPLETE BLOOD COUNT [id number] MCV 94.5 fL 0 Unknown COMPLETE BLOOD COUNT [id number] MCH 29.8 pg 0 Unknown COMPLETE BLOOD COUNT [id number] MCHC 31.6 g/dL 0 Unknown COMPLETE BLOOD COUNT [id number] PLATELET COUNT 161 10e9/L 09/2019 Unknown COMPLETE BLOOD COUNT [id number] Mean Plt Volume 10.8 fL 09/2019 Unknown COMPLETE BLOOD COUNT [id number] Neut Auto 38.7 % 0 Unknown COMPLETE BLOOD COUNT [id number] Lymph Auto 48.0 % 03/13/19 Unknown COMPLETE BLOOD COUNT [id number] [place] Auto 9.5 % 0 Unknown COMPLETE BLOOD COUNT [id number] RDW 13.5 % 0 Unknown COMPLETE BLOOD COUNT [id number] Eos Auto 3.2 % 0 Unknown COMPLETE BLOOD COUNT [id number] Baso Auto 0.6 % 0 Unknown COMPLETE BLOOD COUNT [id number] Neutrophil Abs 2.75 10e9/L Unknown COMPLETE BLOOD COUNT [id number] Lymphocyte Abs 3.41 10e9/L Unknown COMPLETE BLOOD COUNT [id number] Monocyte Abs 0.67 10e9/L 09/2019 Unknown COMPLETE BLOOD COUNT [id number] Eosinophil Abs 0.23 10e9/L Unknown COMPLETE BLOOD COUNT [id number] RDW-SD 44.7 fL 0 Unknown COMPLETE BLOOD COUNT [id number] Basophil Abs 0.04 10e9/L 09/2019 Unknown THYROID STIMULATING HORMONE 14944 TSH 1.677 uIU/mL 03/13/2019 Unknown COMPREHENSIVE METABOLIC 67653 AST 19 U/L 2019 Unknown COMPREHENSIVE METABOLIC 76001 ALT 12 U/L 2019 Unknown COMPREHENSIVE METABOLIC 06471 BUN 17 mg/dL 2019 Unknown COMPREHENSIVE METABOLIC 04620 ALBUMIN 4.2 g/dL 2019 Unknown COMPREHENSIVE METABOLIC 02000 CHLORIDE 103 mmol/L 03/13 Unknown COMPREHENSIVE METABOLIC 79753 Bili Total 0.2 mg/dL 03/13 Unknown COMPREHENSIVE METABOLIC 09147 ALK PHOS 61 U/L 2019 Unknown COMPREHENSIVE METABOLIC 45285 SODIUM 140 mmol/L 03/13 Unknown COMPREHENSIVE METABOLIC 12613 CREATININE 0.95 mg/dL 09/2019 Unknown COMPREHENSIVE METABOLIC 04955 CALCIUM 9.4 mg/dL 2019 Unknown COMPREHENSIVE METABOLIC 90874 POTASSIUM 4.2 mmol/L 03/13 Unknown COMPREHENSIVE METABOLIC 99829 Total Protein 6.5 g/dL Unknown COMPREHENSIVE METABOLIC 62016 Glucose 103 mg/dL 2019 Unknown COMPREHENSIVE METABOLIC 71818 Bicarbonate 26 mmol/L 09/2019 Unknown COMPREHENSIVE METABOLIC 96151 AGAP 11 mmol/L 2019 Unknown GFR CALC [id number] GFR Non Afr Amr 57 mL/min 03/13/2019 Unk nown GFR CALC [id number] GFR Afr Amr >60 mL/min 03/13/2019 Unknow n GFR CALC [id number] GFR Non Afr Amr 52 mL/min 12/15/2018 Unk nown GFR CALC [id number] GFR Afr Amr >60 mL/min 12/15/2018 Unknow n COMPREHENSIVE METABOLIC 43970 AST 17 U/L 2018 Unknown COMPREHENSIVE METABOLIC 16378 ALT 11 U/L 2018 Unknown COMPREHENSIVE METABOLIC 17875 BUN 17 mg/dL 2018 Unknown COMPREHENSIVE METABOLIC 83057 ALBUMIN 3.9 g/dL 2018 Unknown COMPREHENSIVE METABOLIC 96621 CHLORIDE 108 mmol/L 12/15 Unknown COMPREHENSIVE METABOLIC 83936 Bili Total 0.5 mg/dL 12/15 Unknown COMPREHENSIVE METABOLIC 89120 ALK PHOS 72 U/L 2018 Unknown COMPREHENSIVE METABOLIC 25620 SODIUM 142 mmol/L 12/15 Unknown COMPREHENSIVE METABOLIC 97278 CREATININE 1.02 mg/dL 12/05 Unknown COMPREHENSIVE METABOLIC 72352 CALCIUM 9.3 mg/dL 2018 Unknown COMPREHENSIVE METABOLIC 71389 POTASSIUM 4.0 mmol/L 12/15 Unknown COMPREHENSIVE METABOLIC 11235 Total Protein 6.2 g/dL Unknown COMPREHENSIVE METABOLIC 98753 Glucose 93 mg/dL 2018 Unknown COMPREHENSIVE METABOLIC 62719 Bicarbonate 27 mmol/L 12/05 Unknown COMPREHENSIVE METABOLIC 23121 AGAP 7 mmol/L 2018 Unknown GFR CALC [id number] GFR Non Afr Amr 48 mL/min 08/14/2018 Unk nown GFR CALC [id number] GFR Afr Amr 59 mL/min 08/14/2018 Unknown THYROID STIMULATING HORMONE 44151 TSH 1.936 uIU/mL 08/14/2018 Unknown COMPREHENSIVE METABOLIC 11799 AST 18 U/L 2018 Unknown COMPREHENSIVE METABOLIC 03975 ALT 11 U/L 2018 Unknown COMPREHENSIVE METABOLIC 14555 BUN 18 mg/dL 2018 Unknown COMPREHENSIVE METABOLIC 72455 ALBUMIN 4.2 g/dL 2018 Unknown COMPREHENSIVE METABOLIC 00805 CHLORIDE 109 mmol/L 08/14 Unknown COMPREHENSIVE METABOLIC 24599 Bili Total 0.4 mg/dL 08/14 Unknown COMPREHENSIVE METABOLIC 70146 ALK PHOS 64 U/L 2018 Unknown COMPREHENSIVE METABOLIC 32404 SODIUM 142 mmol/L 08/14 Unknown COMPREHENSIVE METABOLIC 13308 CREATININE 1.09 mg/dL 08/05 Unknown COMPREHENSIVE METABOLIC 67137 CALCIUM 9.3 mg/dL 2018 Unknown COMPREHENSIVE METABOLIC 54436 POTASSIUM 4.7 mmol/L 08/14 Unknown COMPREHENSIVE METABOLIC 87469 Total Protein 6.3 g/dL Unknown COMPREHENSIVE METABOLIC 45691 Glucose 84 mg/dL 2018 Unknown COMPREHENSIVE METABOLIC 91190 Bicarbonate 25 mmol/L 08/05 Unknown COMPREHENSIVE METABOLIC 20432 AGAP 8 mmol/L 2018 Unknown COMPLETE BLOOD COUNT [id number] WBC 7.8 10e9/L 08/15/19 19 Unknown COMPLETE BLOOD COUNT [id number] RBC 4.04 10e12/L 2018 Unknown COMPLETE BLOOD COUNT [id number] HEMOGLOBIN 12.2 g/dL 08/15/19 19 Unknown COMPLETE BLOOD COUNT [id number] HEMATOCRIT 38.6 % 08/15/19 19 Unknown COMPLETE BLOOD COUNT [id number] MCV 95.5 fL 9 Unknown COMPLETE BLOOD COUNT [id number] MCH 30.2 pg 9 Unknown COMPLETE BLOOD COUNT [id number] MCHC 31.6 g/dL 9 Unknown COMPLETE BLOOD COUNT [id number] PLATELET COUNT 215 10e9/L 12/2018 Unknown COMPLETE BLOOD COUNT [id number] Mean Plt Volume 11.2 fL 12/2018 Unknown COMPLETE BLOOD COUNT [id number] Neut Auto 45.7 % 9 Unknown COMPLETE BLOOD COUNT [id number] Lymph Auto 42.1 % 08/15/19 19 Unknown COMPLETE BLOOD COUNT [id number] [place] Auto 9.2 % 9 Unknown COMPLETE BLOOD COUNT [id number] RDW 13.4 % 9 Unknown COMPLETE BLOOD COUNT [id number] Eos Auto 2.7 % 9 Unknown COMPLETE BLOOD COUNT [id number] Baso Auto 0.3 % 9 Unknown COMPLETE BLOOD COUNT [id number] Neutrophil Abs 3.56 10e9/L Unknown COMPLETE BLOOD COUNT [id number] Lymphocyte Abs 3.28 10e9/L Unknown COMPLETE BLOOD COUNT [id number] Monocyte Abs 0.72 10e9/L 08/05 Unknown COMPLETE BLOOD COUNT [id number] Eosinophil Abs 0.21 10e9/L Unknown COMPLETE BLOOD COUNT [id number] RDW-SD 44.9 fL 9 Unknown COMPLETE BLOOD COUNT [id number] Basophil Abs 0.02 10e9/L 08/05 Unknown COMPLETE BLOOD COUNT [id number] WBC 5.2 10e9/L 12/01/19 18 Unknown COMPLETE BLOOD COUNT [id number] RBC 4.21 10e12/L 2017 Unknown COMPLETE BLOOD COUNT [id number] HEMOGLOBIN 12.8 g/dL 12/01/19 18 Unknown COMPLETE BLOOD COUNT [id number] HEMATOCRIT 39.0 % 12/01/19 18 Unknown COMPLETE BLOOD COUNT [id number] MCV 92.6 fL 8 Unknown COMPLETE BLOOD COUNT [id number] MCH 30.4 pg 8 Unknown COMPLETE BLOOD COUNT [id number] MCHC 32.8 g/dL 8 Unknown COMPLETE BLOOD COUNT [id number] PLATELET COUNT 202 10e9/L Unknown COMPLETE BLOOD COUNT [id number] Mean Plt Volume 10.7 fL Unknown COMPLETE BLOOD COUNT [id number] Neut Auto 40.9 % 8 Unknown COMPLETE BLOOD COUNT [id number] Lymph Auto 46.3 % 12/01/19 18 Unknown COMPLETE BLOOD COUNT [id number] [place] Auto 9.3 % 8 Unknown COMPLETE BLOOD COUNT [id number] RDW 13.7 % 8 Unknown COMPLETE BLOOD COUNT [id number] Eos Auto 2.9 % 8 Unknown COMPLETE BLOOD COUNT [id number] Baso Auto 0.6 % 8 Unknown COMPLETE BLOOD COUNT [id number] Neutrophil Abs 2.13 10e9/L Unknown COMPLETE BLOOD COUNT [id number] Lymphocyte Abs 2.41 10e9/L Unknown COMPLETE BLOOD COUNT [id number] Monocyte Abs 0.48 10e9/L 11/06 Unknown COMPLETE BLOOD COUNT [id number] Eosinophil Abs 0.15 10e9/L Unknown COMPLETE BLOOD COUNT [id number] RDW-SD 45.2 fL 8 Unknown COMPLETE BLOOD COUNT [id number] Basophil Abs 0.03 10e9/L 11/06 [place] [address] Glucose 118 mg/dL 11/30 [place] [address] CREATININE 1.01 mg/dL [place] [address] BUN 14 mg/dL 11/30 [place] [address] SODIUM 141 mmol/L 11/06 [place] [address] POTASSIUM 4.0 mmol/L 11/06 [place] [address] CHLORIDE 108 mmol/L 11/06 [place] [address] Bicarbonate 25 mmol/[place] [address] AGAP 8 mmol/L 11/30 [place] [address] CALCIUM 9.6 mg/dL 11/30 Unknown FREE T4 36103 T4 Free 1.23 ng/dL 11/30/2017 Unknown GFR CALC [id number] GFR Non Afr Amr 53 mL/min 11/30/2017 Unk nown GFR CALC [id number] GFR Afr Amr >60 mL/min 11/30/2017 Unknow n THYROID STIMULATING HORMONE 32176 TSH 2.124 uIU/mL 11/30/2017 Unknown LIPID GROUP 37992 Cholesterol 152 mg/dL 09/28/2017 Unkno wn LIPID GROUP 68747 Triglyceride 151 mg/dL 09/28/2017 Unkn own LIPID GROUP 65774 HDL CHOLESTEROL 47 mg/dL 09/28/2017 U nknown LIPID GROUP 04724 Chol/HDL Ratio 3.23 ratio 09/28/2017 U nknown LIPID GROUP 94603 NON-HDL Chol 105 mg/dL 09/28/2017 Unkn own LIPID GROUP 93176 LDL Cholesterol 75 mg/dL 09/28/2017 U nknown ASSAY OF TROPONIN QUANT 68148 Troponin-I <0.30 ng/mL Unknown COMPREHENSIVE METABOLIC 16761 AST 20 U/L 2017 Unknown COMPREHENSIVE METABOLIC 83498 ALT 14 U/L 2017 Unknown COMPREHENSIVE METABOLIC 23097 BUN 19 mg/dL 2017 Unknown COMPREHENSIVE METABOLIC 49927 ALBUMIN 4.2 g/dL 2017 Unknown COMPREHENSIVE METABOLIC 71457 CHLORIDE 102 mmol/L 09/27 Unknown COMPREHENSIVE METABOLIC 68974 Bili Total 0.4 mg/dL 09/27 Unknown COMPREHENSIVE METABOLIC 32130 ALK PHOS 66 U/L 2017 Unknown COMPREHENSIVE METABOLIC 82310 SODIUM 135 mmol/L 09/27 Unknown COMPREHENSIVE METABOLIC 98348 CREATININE 1.01 mg/dL 09/05 Unknown COMPREHENSIVE METABOLIC 66076 CALCIUM 9.3 mg/dL 2017 Unknown COMPREHENSIVE METABOLIC 87264 POTASSIUM 4.8 mmol/L 09/27 Unknown COMPREHENSIVE METABOLIC 90349 Total Protein 7.0 g/dL Unknown COMPREHENSIVE METABOLIC 88057 Glucose 91 mg/dL 2017 Unknown COMPREHENSIVE METABOLIC 49812 Bicarbonate 23 mmol/L 09/05 Unknown COMPREHENSIVE METABOLIC 57489 AGAP 10 mmol/L 2017 Unknown COMPLETE BLOOD COUNT 6343890 WBC 7.5 10e9/L 09/28/19 18 Unknown COMPLETE BLOOD COUNT [id number] RBC 4.13 10e12/L 2017 Unknown COMPLETE BLOOD COUNT [id number] HEMOGLOBIN 12.6 g/dL 09/28/19 18 Unknown COMPLETE BLOOD COUNT 7324527 HEMATOCRIT 38.4 % 09/28/19 18 Unknown COMPLETE BLOOD COUNT 7107117 MCV 93.0 fL 8 Unknown COMPLETE BLOOD COUNT 1082787 MCH 30.5 pg 8 Unknown COMPLETE BLOOD COUNT 1902928 MCHC 32.8 g/dL 8 Unknown COMPLETE BLOOD COUNT 1981703 PLATELET COUNT 204 10e9/L Unknown COMPLETE BLOOD COUNT 4601908 Mean Plt Volume 10.9 fL Unknown COMPLETE BLOOD COUNT 2746468 Neut Auto 43.1 % 8 Unknown COMPLETE BLOOD COUNT 9672051 Lymph Auto 45.0 % 09/28/19 18 Unknown COMPLETE BLOOD COUNT 3397731 [place] Auto 9.2 % 8 Unknown COMPLETE BLOOD COUNT 0783727 RDW 13.4 % 8 Unknown COMPLETE BLOOD COUNT 6911347 Eos Auto 2.3 % 8 Unknown COMPLETE BLOOD COUNT 8449394 Baso Auto 0.4 % 8 Unknown COMPLETE BLOOD COUNT 0639847 Neutrophil Abs 3.23 10e9/L Unknown COMPLETE BLOOD COUNT 6200430 Lymphocyte Abs 3.38 10e9/L Unknown COMPLETE BLOOD COUNT 6784851 Monocyte Abs 0.69 10e9/L 09/05 Unknown COMPLETE BLOOD COUNT 8361903 Eosinophil Abs 0.17 10e9/L Unknown COMPLETE BLOOD COUNT 5075678 RDW-SD 44.4 fL 8 Unknown COMPLETE BLOOD COUNT 0487358 Basophil Abs 0.03 10e9/L 09/05 Unknown GFR CALC 8960556 GFR Non Afr Amr 53 mL/min 09/27/2017 Unk nown GFR CALC 7916568 GFR Afr Amr >60 mL/min 09/27/2017 Unknow n GLYCOSYLATED HEMOGLOBIN TEST 75968 Hgb A1c 93985-3 5.4 % 0 09/27/2017 Unknown MEAN GLUC 1960856 Calc Mean Gluc 108 mg/dL 09/27/2017 Unkn own MEAN GLUC 1135817 Calc Mean Gluc 114 mg/dL 11/01/2016 Unkn own LIPID GROUP 66517 Cholesterol 146 mg/dL 11/01/2016 Unkno wn LIPID GROUP 14038 Triglyceride 119 mg/dL 11/01/2016 Unkn own LIPID GROUP 67680 HDL CHOLESTEROL 47 mg/dL 11/01/2016 U nknown LIPID GROUP 04087 Chol/HDL Ratio 3.11 ratio 11/01/2016 U nknown LIPID GROUP 91589 NON-HDL Chol 99 mg/dL 11/01/2016 Unkn own LIPID GROUP 24551 LDL Cholesterol 75 mg/dL 11/01/2016 U nknown GLYCOSYLATED HEMOGLOBIN TEST 16824 Hgb A1c 70705-0 5.6 % 0 11/01/2016 Unknown COMPREHENSIVE METABOLIC 18721 AST 22 U/L 2016 Unknown COMPREHENSIVE METABOLIC 48896 ALT 12 U/L 2016 Unknown COMPREHENSIVE METABOLIC 41156 BUN 17 mg/dL 2016 Unknown COMPREHENSIVE METABOLIC 83998 ALBUMIN 4.0 g/dL 2016 Unknown COMPREHENSIVE METABOLIC 64176 CHLORIDE 110 mmol/L 11/01 Unknown COMPREHENSIVE METABOLIC 02381 Bili Total 0.4 mg/dL 11/01 Unknown COMPREHENSIVE METABOLIC 49669 ALK PHOS 63 U/L 2016 Unknown COMPREHENSIVE METABOLIC 64482 SODIUM 140 mmol/L 11/01 Unknown COMPREHENSIVE METABOLIC 55795 CREATININE 1.05 mg/dL 10/06 Unknown COMPREHENSIVE METABOLIC 05745 CALCIUM 9.2 mg/dL 2016 Unknown COMPREHENSIVE METABOLIC 99603 POTASSIUM 4.2 mmol/L 11/01 Unknown COMPREHENSIVE METABOLIC 19266 Total Protein 6.2 g/dL Unknown COMPREHENSIVE METABOLIC 23585 Glucose 87 mg/dL 2016 Unknown COMPREHENSIVE METABOLIC 78806 Bicarbonate 24 mmol/L 10/06 Unknown COMPREHENSIVE METABOLIC 81380 AGAP 6 mmol/L 2016 Unknown GFR CALC 6080902 GFR Non Afr Amr 51 mL/min 11/01/2016 Unk nown GFR CALC 0117235 GFR Afr Amr >60 mL/min 11/01/2016 Unknow n COMPLETE BLOOD COUNT 2989270 WBC 6.7 10e9/L 11/02/19 17 Unknown COMPLETE BLOOD COUNT 4787977 RBC 4.04 10e12/L 2016 Unknown COMPLETE BLOOD COUNT 4606525 HEMOGLOBIN 12.1 g/dL 11/02/19 17 Unknown COMPLETE BLOOD COUNT 3875804 HEMATOCRIT 38.0 % 11/02/19 17 Unknown COMPLETE BLOOD COUNT 1320701 MCV 94.1 fL 7 Unknown COMPLETE BLOOD COUNT 7079961 MCH 30.0 pg 7 Unknown COMPLETE BLOOD COUNT 4760451 MCHC 31.8 g/dL 7 Unknown COMPLETE BLOOD COUNT 1037790 PLATELET COUNT 206 10e9/L Unknown COMPLETE BLOOD COUNT 1570222 Mean Plt Volume 11.3 fL Unknown COMPLETE BLOOD COUNT 1955727 Neut Auto 35.8 % 7 Unknown COMPLETE BLOOD COUNT 5724119 Lymph Auto 51.6 % 11/02/19 17 Unknown COMPLETE BLOOD COUNT 7900107 [place] Auto 8.8 % 7 Unknown COMPLETE BLOOD COUNT 0392504 RDW 13.5 % 7 Unknown COMPLETE BLOOD COUNT 8724036 Eos Auto 3.4 % 7 Unknown COMPLETE BLOOD COUNT 0440392 Baso Auto 0.4 % 7 Unknown COMPLETE BLOOD COUNT 9325920 Neutrophil Abs 2.40 10e9/L Unknown COMPLETE BLOOD COUNT 9477176 Lymphocyte Abs 3.46 10e9/L Unknown COMPLETE BLOOD COUNT 6127458 Monocyte Abs 0.59 10e9/L 10/06 Unknown COMPLETE BLOOD COUNT 5237536 Eosinophil Abs 0.23 10e9/L Unknown COMPLETE BLOOD COUNT 2119811 RDW-SD 45.3 fL 7 Unknown COMPLETE BLOOD COUNT 9145749 Basophil Abs 0.03 10e9/L 10/06 Unknown THYROID STIMULATING HORMONE 66988 TSH 1.981 uIU/mL 11/01/2016 Unknown COMPLETE BLOOD COUNT 6428221 WBC 6.0 10e9/L 05/14/19 17 Unknown COMPLETE BLOOD COUNT 3029331 RBC 4.29 10e12/L 2016 Unknown COMPLETE BLOOD COUNT 0510188 HEMOGLOBIN 12.9 g/dL 05/14/19 17 Unknown COMPLETE BLOOD COUNT 6463529 HEMATOCRIT 38.4 % 05/14/19 17 Unknown COMPLETE BLOOD COUNT 9955269 MCV 89.5 fL 7 Unknown COMPLETE BLOOD COUNT 6892312 MCH 30.1 pg 7 Unknown COMPLETE BLOOD COUNT 9141035 MCHC 33.6 g/dL 7 Unknown COMPLETE BLOOD COUNT 9881316 PLATELET COUNT 181 10e9/L 11/2016 Unknown COMPLETE BLOOD COUNT 3118077 Mean Plt Volume 11.7 fL 11/2016 Unknown COMPLETE BLOOD COUNT 9401724 Neut Auto 36.9 % 7 Unknown COMPLETE BLOOD COUNT 6158440 Lymph Auto 50.4 % 05/14/19 17 Unknown COMPLETE BLOOD COUNT 0376346 [place] Auto 9.0 % 7 Unknown COMPLETE BLOOD COUNT 3661468 RDW 13.7 % 7 Unknown COMPLETE BLOOD COUNT 7521093 Eos Auto 3.4 % 7 Unknown COMPLETE BLOOD COUNT 4280973 Baso Auto 0.3 % 7 Unknown COMPLETE BLOOD COUNT 4988455 Neutrophil Abs 2.21 10e9/L Unknown COMPLETE BLOOD COUNT 4488204 Lymphocyte Abs 3.02 10e9/L Unknown COMPLETE BLOOD COUNT 1314870 Monocyte Abs 0.54 10e9/L 11/2016 Unknown COMPLETE BLOOD COUNT 4631375 Eosinophil Abs 0.20 10e9/L Unknown COMPLETE BLOOD COUNT 1430466 RDW-SD 44.0 fL 7 Unknown COMPLETE BLOOD COUNT 2643746 Basophil Abs 0.02 10e9/L 11/2016 Unknown GLYCOSYLATED HEMOGLOBIN TEST 15567 Hgb A1c 23862-8 5.4 % 0 05/13/2016 Unknown THYROID STIMULATING HORMONE 38148 TSH 2.200 uIU/mL 05/13/2016 Unknown GFR CALC 0595182 GFR Non Afr Amr 50 mL/min 05/13/2016 Unk nown GFR CALC 9685023 GFR Afr Amr >60 mL/min 05/13/2016 Unknow n MEAN GLUC 2516321 Calc Mean Gluc 108 mg/dL 05/13/2016 Unkn own COMPREHENSIVE METABOLIC 71635 AST 18 U/L 2016 Unknown COMPREHENSIVE METABOLIC 02880 ALT 10 U/L 2016 Unknown COMPREHENSIVE METABOLIC 33922 BUN 20 mg/dL 2016 Unknown COMPREHENSIVE METABOLIC 08760 ALBUMIN 4.1 g/dL 2016 Unknown COMPREHENSIVE METABOLIC 54460 CHLORIDE 109 mmol/L 05/13 Unknown COMPREHENSIVE METABOLIC 35889 Bili Total 0.6 mg/dL 05/13 Unknown COMPREHENSIVE METABOLIC 38090 ALK PHOS 64 U/L 2016 Unknown COMPREHENSIVE METABOLIC 73559 SODIUM 141 mmol/L 05/13 Unknown COMPREHENSIVE METABOLIC 73591 CREATININE 1.06 mg/dL 11/2016 Unknown COMPREHENSIVE METABOLIC 60622 CALCIUM 9.9 mg/dL 2016 Unknown COMPREHENSIVE METABOLIC 38790 POTASSIUM 4.2 mmol/L 05/13 Unknown COMPREHENSIVE METABOLIC 70800 Total Protein 6.3 g/dL Unknown COMPREHENSIVE METABOLIC 84619 Glucose 99 mg/dL 2016 Unknown COMPREHENSIVE METABOLIC 02596 Bicarbonate 21 mmol/L 11/2016 Unknown COMPREHENSIVE METABOLIC 87784 AGAP 11 mmol/L 2016 Unknown LIPID GROUP 39354 Cholesterol 169 mg/dL 11/25/2015 Unkno wn LIPID GROUP 06881 Triglyceride 165 mg/dL 11/25/2015 Unkn own LIPID GROUP 90697 HDL CHOLESTEROL 43 mg/dL 11/25/2015 U nknown LIPID GROUP 71958 Chol/HDL Ratio 3.93 ratio 11/25/2015 U nknown LIPID GROUP 39029 NON-HDL Chol 126 mg/dL 11/25/2015 Unkn own LIPID GROUP 57844 LDL Cholesterol 93 mg/dL 11/25/2015 U nknown COMPREHENSIVE METABOLIC 68162 AST 18 U/L 2015 Unknown COMPREHENSIVE METABOLIC 77154 ALT 10 U/L 2015 Unknown COMPREHENSIVE METABOLIC 86741 BUN 20 mg/dL 2015 Unknown COMPREHENSIVE METABOLIC 67415 ALBUMIN 3.9 g/dL 2015 Unknown COMPREHENSIVE METABOLIC 56932 CHLORIDE 110 mmol/L 11/24 Unknown COMPREHENSIVE METABOLIC 88120 Bili Total 0.5 mg/dL 11/24 Unknown COMPREHENSIVE METABOLIC 55812 ALK PHOS 72 U/L 2015 Unknown COMPREHENSIVE METABOLIC 68262 SODIUM 141 mmol/L 11/24 Unknown COMPREHENSIVE METABOLIC 92013 CREATININE 1.12 mg/dL 11/06 Unknown COMPREHENSIVE METABOLIC 65588 CALCIUM 9.7 mg/dL 2015 Unknown COMPREHENSIVE METABOLIC 54518 POTASSIUM 4.4 mmol/L 11/24 Unknown COMPREHENSIVE METABOLIC 26664 Total Protein 6.2 g/dL Unknown COMPREHENSIVE METABOLIC 21494 Glucose 90 mg/dL 2015 Unknown COMPREHENSIVE METABOLIC 97880 Bicarbonate 23 mmol/L 11/06 Unknown COMPREHENSIVE METABOLIC 03900 AGAP 8 mmol/L 2015 Unknown GFR CALC 7555737 GFR Non Afr Amr 47 mL/min 11/25/2015 Unk nown GFR CALC 6604154 GFR Afr Amr 57 mL/min 11/25/2015 Unknown GLYCOSYLATED HEMOGLOBIN TEST 06738 Hgb A1c 85289-5 5.5 % 0 11/25/2015 Unknown THYROID STIMULATING HORMONE 56890 TSH 2.537 uIU/mL 11/25/2015 Unknown FREE T4 20754 T4 Free 1.36 ng/dL 11/25/2015 Unknown COMPLETE BLOOD COUNT 4112123 WBC 6.8 10e9/L 11/25/19 16 Unknown COMPLETE BLOOD COUNT 9585424 RBC 4.20 10e12/L 2015 Unknown COMPLETE BLOOD COUNT 6447727 HEMOGLOBIN 12.5 g/dL 11/25/19 16 Unknown COMPLETE BLOOD COUNT 7138959 HEMATOCRIT 38.0 % 11/25/19 16 Unknown COMPLETE BLOOD COUNT 8459587 MCV 90.5 fL 6 Unknown COMPLETE BLOOD COUNT 5104023 MCH 29.8 pg 6 Unknown COMPLETE BLOOD COUNT 6374929 MCHC 32.9 g/dL 6 Unknown COMPLETE BLOOD COUNT 6434091 PLATELET COUNT 197 10e9/L Unknown COMPLETE BLOOD COUNT 9815880 Mean Plt Volume 11.7 fL Unknown COMPLETE BLOOD COUNT 3623434 Neut Auto 41.3 % 6 Unknown COMPLETE BLOOD COUNT 5072742 Lymph Auto 47.1 % 11/25/19 16 Unknown COMPLETE BLOOD COUNT 8810647 [place] Auto 7.8 % 6 Unknown COMPLETE BLOOD COUNT 7534927 RDW 13.8 % 6 Unknown COMPLETE BLOOD COUNT 1396943 Eos Auto 3.4 % 6 Unknown COMPLETE BLOOD COUNT 7797187 Baso Auto 0.4 % 6 Unknown COMPLETE BLOOD COUNT 6081562 Neutrophil Abs 2.81 10e9/L Unknown COMPLETE BLOOD COUNT 5350166 Lymphocyte Abs 3.20 10e9/L Unknown COMPLETE BLOOD COUNT 5891966 Monocyte Abs 0.53 10e9/L 11/06 Unknown COMPLETE BLOOD COUNT 0082645 Eosinophil Abs 0.23 10e9/L Unknown COMPLETE BLOOD COUNT 1575412 RDW-SD 44.4 fL 6 Unknown COMPLETE BLOOD COUNT 9265281 Basophil Abs 0.03 10e9/L 11/06 Unknown MEAN GLUC 2589617 Calc Mean Gluc 111 mg/dL 11/25/2015 [place] [address] Glucose 89 MG/DL 02/19 [place] [address] CREATININE 1.12 MG/DL [place] [address] BUN 20 MG/DL 02/19 [place] [address] SODIUM 139 MMOL/L 02/04 [place] [address] POTASSIUM 4.6 MMOL/L 02/04 [place] [address] CHLORIDE 108 MMOL/L 02/04 [place] [address] BICARB 26 MMOL/L 02/19 [place] [address] ANION GAP 5 MEQ/L 02/19 [place] [address] CALCIUM 10.0 MG/DL 02/04 Unknown GFR CALC 8130706 GFR AA 57.0L ML/MIN 02/19/2015 Unknow n GFR CALC 0757671 GFR NON-AA 47.0L ML/MIN 02/19/2015 Unkno wn THYROID STIMULATING HORMONE 00903 TSH 2.378 uIU/ML 11/14/2014 Unknown COMPLETE BLOOD COUNT 1018042 WBC 6.4 10e9/L 11/15/19 15 Unknown COMPLETE BLOOD COUNT 1426725 RBC 3.99 10e12/L 2014 Unknown COMPLETE BLOOD COUNT 5569580 HGB 11.9 g/dL 5 Unknown COMPLETE BLOOD COUNT 4739561 HCT DET 36.9 % 5 Unknown COMPLETE BLOOD COUNT 7699798 MCV 92.5 fL 5 Unknown COMPLETE BLOOD COUNT 9813964 MCH 29.8 pg 5 Unknown COMPLETE BLOOD COUNT 6647248 MCHC 32.2 g/dL 5 Unknown COMPLETE BLOOD COUNT 0250187 PLT 172 10e9/L 11/15/19 15 Unknown COMPLETE BLOOD COUNT 9829686 MPV 11.7 fL 5 Unknown COMPLETE BLOOD COUNT 8902376 CINTHYA % 40.4 % 5 Unknown COMPLETE BLOOD COUNT 1931957 LY % 48.0 % 5 Unknown COMPLETE BLOOD COUNT 7170493 MON % 8.3 % 5 Unknown COMPLETE BLOOD COUNT 3469787 EOS % 2.8 % 5 Unknown COMPLETE BLOOD COUNT 3044620 BASO % 0.5 % 5 Unknown COMPLETE BLOOD COUNT 2697523 RDW 13.6 % 5 Unknown COMPLETE BLOOD COUNT 6766321 ABS CINTHYA 2.59 10e9/L 015 Unknown COMPLETE BLOOD COUNT 0567539 ABS LYMPH 3.07 10e9/L 015 Unknown COMPLETE BLOOD COUNT 7025651 ABS MONO 0.53 10e9/L 015 Unknown COMPLETE BLOOD COUNT 4632665 ABS EOS 0.18 10e9/L 015 Unknown COMPLETE BLOOD COUNT 9924539 ABS BASO 0.03 10e9/L 015 Unknown COMPLETE BLOOD COUNT 8976949 RDW-SD 44.9 fL 5 Unknown LIPID GROUP 08328 HDL TEST 42 MG/DL 11/14/2014 Unknown LIPID GROUP 39956 TRIG 177 MG/DL 11/14/2014 Unknown LIPID GROUP 66888 TEST LDL 72 MG/DL 11/14/2014 Unknown LIPID GROUP 82184 CHOL 149 MG/DL 11/14/2014 Unknown LIPID GROUP 98531 RCHOL/HDL 3.55 RATIO 11/14/2014 Unknow n LIPID GROUP 71190 NON-HDL CH 107 MG/DL 11/14/2014 Unknow n GLYCOSYLATED HEMOGLOBIN TEST 75257 A1C HPLC 67376-4 5.5 % 0 11/14/2014 Unknown FREE T4 19846 FREE T4 1.39 NG/DL 11/14/2014 Unknown GFR CALC 4152619 GFR AA 55.0L ML/MIN 11/14/2014 Unknow n GFR CALC 5196804 GFR NON-AA 46.0L ML/MIN 11/14/2014 Unkno wn COMPREHENSIVE METABOLIC 98918 AST 17 U/L 2014 Unknown COMPREHENSIVE METABOLIC 79158 ALT 10 IU/L 2014 Unknown COMPREHENSIVE METABOLIC 26006 BUN 20 MG/DL 2014 Unknown COMPREHENSIVE METABOLIC 00458 ALBUMIN 3.9 GM/DL 2014 Unknown COMPREHENSIVE METABOLIC 23194 CHLORIDE 111 MMOL/L 11/14 Unknown COMPREHENSIVE METABOLIC 12519 BILI TOT 0.4 MG/DL 2014 Unknown COMPREHENSIVE METABOLIC 21633 ALK PHOS 70 U/L 2014 Unknown COMPREHENSIVE METABOLIC 00270 SODIUM 142 MMOL/L 11/14 Unknown COMPREHENSIVE METABOLIC 64703 CREATININE 1.16 MG/DL 11/05 Unknown COMPREHENSIVE METABOLIC 86835 CALCIUM 9.4 MG/DL 2014 Unknown COMPREHENSIVE METABOLIC 43702 POTASSIUM 4.6 MMOL/L 11/14 Unknown COMPREHENSIVE METABOLIC 25722 PROT TOT 6.2 GM/DL 2014 Unknown COMPREHENSIVE METABOLIC 46511 Glucose 90 MG/DL 2014 Unknown COMPREHENSIVE METABOLIC 72917 BICARB 24 MMOL/L 2014 Unknown COMPREHENSIVE METABOLIC 70543 ANION GAP 7 MEQ/L 2014 Unknown THYROID STIMULATING HORMONE 98448 TSH 2.427 uIU/ML 05/10/2014 Unknown LIPID GROUP 41968 HDL TEST 47 MG/DL 05/10/2014 Unknown LIPID GROUP 58541 TRIG 145 MG/DL 05/10/2014 Unknown LIPID GROUP 93632 TEST LDL 73 MG/DL 05/10/2014 Unknown LIPID GROUP 14707 CHOL 149 MG/DL 05/10/2014 Unknown LIPID GROUP 84412 RCHOL/HDL 3.17 RATIO 05/10/2014 Unknow n LIPID GROUP 18596 NON-HDL CH 102 MG/DL 05/10/2014 Unknow n COMPREHENSIVE METABOLIC 06241 AST 17 U/L 2014 Unknown COMPREHENSIVE METABOLIC 83408 ALT 9 IU/L 2014 Unknown COMPREHENSIVE METABOLIC 92873 BUN 19 MG/DL 2014 Unknown COMPREHENSIVE METABOLIC 71583 ALBUMIN 4.3 GM/DL 2014 Unknown COMPREHENSIVE METABOLIC 36372 CHLORIDE 108 MMOL/L 05/10 Unknown COMPREHENSIVE METABOLIC 39861 BILI TOT 0.5 MG/DL 2014 Unknown COMPREHENSIVE METABOLIC 60493 ALK PHOS 68 U/L 2014 Unknown COMPREHENSIVE METABOLIC 76102 SODIUM 140 MMOL/L 05/10 Unknown COMPREHENSIVE METABOLIC 91173 CREATININE 1.08 MG/DL 08/2014 Unknown COMPREHENSIVE METABOLIC 59864 CALCIUM 9.9 MG/DL 2014 Unknown COMPREHENSIVE METABOLIC 63997 POTASSIUM 4.3 MMOL/L 05/10 Unknown COMPREHENSIVE METABOLIC 83551 PROT TOT 7.2 GM/DL 2014 Unknown COMPREHENSIVE METABOLIC 74747 Glucose 94 MG/DL 2014 Unknown COMPREHENSIVE METABOLIC 21081 BICARB 26 MMOL/L 2014 Unknown COMPREHENSIVE METABOLIC 86299 ANION GAP 6 MEQ/L 2014 Unknown GFR CALC 1643584 GFR AA 60.0L ML/MIN 05/10/2014 Unknow n GFR CALC 9985537 GFR NON-AA 49.0L ML/MIN 05/10/2014 Unkno wn GLYCOSYLATED HEMOGLOBIN TEST 46604 A1C HPLC 94065-9 5.6 % 0 05/10/2014 Unknown COMPLETE BLOOD COUNT 9483977 WBC 7.2 10e9/L 05/11/19 15 Unknown COMPLETE BLOOD COUNT 7114127 RBC 4.28 10e12/L 2014 Unknown COMPLETE BLOOD COUNT 0618940 HGB 12.8 g/dL 5 Unknown COMPLETE BLOOD COUNT 6493715 HCT DET 39.3 % 5 Unknown COMPLETE BLOOD COUNT 1455281 MCV 91.8 fL 5 Unknown COMPLETE BLOOD COUNT 0372273 MCH 29.9 pg 5 Unknown COMPLETE BLOOD COUNT 3409848 MCHC 32.6 g/dL 5 Unknown COMPLETE BLOOD COUNT 4066837 PLT 189 10e9/L 05/11/19 15 Unknown COMPLETE BLOOD COUNT 7025902 MPV 11.2 fL 5 Unknown COMPLETE BLOOD COUNT 3186750 CINTHYA % 38.0 % 5 Unknown COMPLETE BLOOD COUNT 5472363 LY % 51.0 % 5 Unknown COMPLETE BLOOD COUNT 0882814 MON % 7.7 % 5 Unknown COMPLETE BLOOD COUNT 9004977 EOS % 2.9 % 5 Unknown COMPLETE BLOOD COUNT 5852906 BASO % 0.4 % 5 Unknown COMPLETE BLOOD COUNT 0001438 RDW 14.0 % 5 Unknown COMPLETE BLOOD COUNT 3633202 ABS CINTHYA 2.74 10e9/L 015 Unknown COMPLETE BLOOD COUNT 0456718 ABS LYMPH 3.67 10e9/L 015 Unknown COMPLETE BLOOD COUNT 0032815 ABS MONO 0.55 10e9/L 015 Unknown COMPLETE BLOOD COUNT 7670871 ABS EOS 0.21 10e9/L 015 Unknown COMPLETE BLOOD COUNT 9043159 ABS BASO 0.03 10e9/L 015 Unknown COMPLETE BLOOD COUNT 9086823 RDW-SD 46.1 fL 5 Unknown FREE T4 33897 FREE T4 1.14 NG/DL 05/10/2014 Unknown GLYCOSYLATED HEMOGLOBIN TEST 16628 A1C HPLC 88634-1 5.2 % 0 03/29/2013 Unknown FREE T4 10649 FREE T4 1.40 NG/DL 03/28/2013 Unknown GFR CALC 4139146 GFR AA >60 ML/MIN 03/28/2013 Unknown GFR CALC 4556259 GFR NON-AA 52.0L ML/MIN 03/28/2013 Unkno wn COMPREHENSIVE METABOLIC 71383 AST 15 U/L 2013 Unknown COMPREHENSIVE METABOLIC 79184 ALT 9 IU/L 2013 Unknown COMPREHENSIVE METABOLIC 32389 BUN 17 MG/DL 2013 Unknown COMPREHENSIVE METABOLIC 80876 ALBUMIN 4.0 GM/DL 2013 Unknown COMPREHENSIVE METABOLIC 18086 CHLORIDE 112 MMOL/L 03/28 Unknown COMPREHENSIVE METABOLIC 34006 BILI TOT 0.5 MG/DL 2013 Unknown COMPREHENSIVE METABOLIC 79256 ALK PHOS 66 U/L 2013 Unknown COMPREHENSIVE METABOLIC 53305 SODIUM 140 MMOL/L 03/28 Unknown COMPREHENSIVE METABOLIC 86842 CREATININE 1.03 MG/DL 03/08 Unknown COMPREHENSIVE METABOLIC 35599 CALCIUM 9.5 MG/DL 2013 Unknown COMPREHENSIVE METABOLIC 74337 POTASSIUM 4.1 MMOL/L 03/28 Unknown COMPREHENSIVE METABOLIC 52183 PROT TOT 6.2 GM/DL 2013 Unknown COMPREHENSIVE METABOLIC 34258 Glucose 102 MG/DL 2013 Unknown COMPREHENSIVE METABOLIC 44771 BICARB 23 MMOL/L 2013 Unknown COMPREHENSIVE METABOLIC 60121 ANION GAP 5 MEQ/L 2013 Unknown THYROID STIMULATING HORMONE 69525 TSH 2.074 uIU/ML 03/28/2013 Unknown VITAMIN B 12 FOLIC ACID 16029|38849 VIT B 12 423 PG/ML 03/08 Unknown VITAMIN B 12 FOLIC ACID 39234|30571 FOLIC ACID 19.7 NG/ML Unknown LIPID GROUP 44986 HDL TEST 40 MG/DL 03/28/2013 Unknown LIPID GROUP 04052 TRIG 145 MG/DL 03/28/2013 Unknown LIPID GROUP 93338 TEST LDL 81 MG/DL 03/28/2013 Unknown LIPID GROUP 88857 CHOL 150 MG/DL 03/28/2013 Unknown LIPID GROUP 09822 RCHOL/HDL 3.75 RATIO 03/28/2013 Unknow n COMPLETE BLOOD COUNT 4398906 WBC 6.0 10e9/L 03/28/19 14 Unknown COMPLETE BLOOD COUNT 6068351 RBC 4.26 10e12/L 2013 Unknown COMPLETE BLOOD COUNT 5517580 HGB 12.7 g/dL 4 Unknown COMPLETE BLOOD COUNT 7880757 HCT DET 38.7 % 4 Unknown COMPLETE BLOOD COUNT 5680973 MCV 90.8 fL 4 Unknown COMPLETE BLOOD COUNT 0283449 MCH 29.8 pg 4 Unknown COMPLETE BLOOD COUNT 9346865 MCHC 32.8 g/dL 4 Unknown COMPLETE BLOOD COUNT 7847962 PLT 178 10e9/L 03/28/19 14 Unknown COMPLETE BLOOD COUNT 8079718 MPV 11.7 fL 4 Unknown COMPLETE BLOOD COUNT 0581516 CINTHYA % 30.5 % 4 Unknown COMPLETE BLOOD COUNT 3506498 LY % 55.4 % 4 Unknown COMPLETE BLOOD COUNT 4143585 MON % 9.0 % 4 Unknown COMPLETE BLOOD COUNT 4418554 EOS % 4.4 % 4 Unknown COMPLETE BLOOD COUNT 4067543 BASO % 0.7 % 4 Unknown COMPLETE BLOOD COUNT 8497462 RDW 13.3 % 4 Unknown COMPLETE BLOOD COUNT 2871298 ABS CINTHYA 1.83 10e9/L 014 Unknown COMPLETE BLOOD COUNT 2502975 ABS LYMPH 3.32 10e9/L 014 Unknown COMPLETE BLOOD COUNT 3399677 ABS MONO 0.54 10e9/L 014 Unknown COMPLETE BLOOD COUNT 8028252 ABS EOS 0.26 10e9/L 014 Unknown COMPLETE BLOOD COUNT 3542039 ABS BASO 0.04 10e9/L 014 Unknown COMPLETE BLOOD COUNT 0608513 RDW-SD 43.2 fL 4 Unknown HEMOGLOBIN A1C (GLYCOSYLATED) 2913231 A1C HPLC 70264-9 5.5 % 02/24/2012 Unknown COMPLETE BLOOD COUNT 6970200 WBC 6.0 10e9/L 02/23/20 12 Unknown COMPLETE BLOOD COUNT 6193398 RBC 4.22 10e12/L 2011 Unknown COMPLETE BLOOD COUNT 7506964 HGB 12.4 g/dL 2 Unknown COMPLETE BLOOD COUNT 0598599 HCT DET 38.2 % 2 Unknown COMPLETE BLOOD COUNT 6017417 MCV 90.5 fL 2 Unknown COMPLETE BLOOD COUNT 3875093 MCH 29.4 pg 2 Unknown COMPLETE BLOOD COUNT 7834859 MCHC 32.5 g/dL 2 Unknown COMPLETE BLOOD COUNT 5930555 PLT 187 10e9/L 02/23/20 12 Unknown COMPLETE BLOOD COUNT 9125052 MPV 11.5 fL 2 Unknown COMPLETE BLOOD COUNT 3621400 CINTHYA % 36.4 % 2 Unknown COMPLETE BLOOD COUNT 4720576 LY % 51.0 % 2 Unknown COMPLETE BLOOD COUNT 7343228 MON % 8.7 % 2 Unknown COMPLETE BLOOD COUNT 7649052 EOS % 3.2 % 2 Unknown COMPLETE BLOOD COUNT 5213486 BASO % 0.7 % 2 Unknown COMPLETE BLOOD COUNT 0899982 RDW 13.7 % 2 Unknown COMPLETE BLOOD COUNT 3866019 ABS CINTHYA 2.18 10e9/L 012 Unknown COMPLETE BLOOD COUNT 3083484 ABS LYMPH 3.06 10e9/L 012 Unknown COMPLETE BLOOD COUNT 6087987 ABS MONO 0.52 10e9/L 012 Unknown COMPLETE BLOOD COUNT 5898447 ABS EOS 0.19 10e9/L 012 Unknown COMPLETE BLOOD COUNT 7166812 ABS BASO 0.04 10e9/L 012 Unknown COMPLETE BLOOD COUNT 1628906 RDW-SD 44.3 fL 2 Unknown LIPID GROUP 86040 HDL TEST 42 MG/DL 02/23/2012 Unknown LIPID GROUP 20474 TRIG 156 MG/DL 02/23/2012 Unknown LIPID GROUP 08434 TEST LDL 80 MG/DL 02/23/2012 Unknown LIPID GROUP 95702 CHOL 153 MG/DL 02/23/2012 Unknown LIPID GROUP 35370 RCHOL/HDL 3.64 RATIO 02/23/2012 Unknow n FREE T4 22789 FREE T4 1.22 NG/DL 02/23/2012 Unknown COMPREHENSIVE METABOLIC 48014 AST 20 U/L 2011 Unknown COMPREHENSIVE METABOLIC 55124 ALT 11 IU/L 2011 Unknown COMPREHENSIVE METABOLIC 38885 BUN 19 MG/DL 2011 Unknown COMPREHENSIVE METABOLIC 11729 ALBUMIN 4.3 GM/DL 2011 Unknown COMPREHENSIVE METABOLIC 14517 CHLORIDE 109 MMOL/L 02/22 Unknown COMPREHENSIVE METABOLIC 00966 BILI TOT 0.6 MG/DL 2011 Unknown COMPREHENSIVE METABOLIC 74592 ALK PHOS 84 U/L 2011 Unknown COMPREHENSIVE METABOLIC 33457 SODIUM 142 MMOL/L 02/22 Unknown COMPREHENSIVE METABOLIC 46537 CREATININE 1.09 MG/DL 02/04 Unknown COMPREHENSIVE METABOLIC 33297 CALCIUM 9.8 MG/DL 2011 Unknown COMPREHENSIVE METABOLIC 71140 POTASSIUM 4.2 MMOL/L 02/22 Unknown COMPREHENSIVE METABOLIC 42405 PROT TOT 6.4 GM/DL 2011 Unknown COMPREHENSIVE METABOLIC 15282 Glucose 89 MG/DL 2011 Unknown COMPREHENSIVE METABOLIC 27642 BICARB 25 MMOL/L 2011 Unknown COMPREHENSIVE METABOLIC 69198 ANION GAP 8 MEQ/L 2011 Unknown GFR CALC [id number] GFR AA 60.0L ML/MIN 02/23/2012 Unknow n GFR CALC [id number] GFR NON-AA 49.0L ML/MIN 02/23/2012 Unkno wn THYROID STIMULATING HORMONE 17437 TSH 2.450 uIU/ML 02/23/2012 Unknown COMPREHENSIVE METABOLIC 05256 AST 22 U/L 2011 Unknown COMPREHENSIVE METABOLIC 92750 ALT 14 IU/L 2011 Unknown COMPREHENSIVE METABOLIC 34484 BUN 21 MG/DL 2011 Unknown COMPREHENSIVE METABOLIC 39190 ALBUMIN 4.3 GM/DL 2011 Unknown COMPREHENSIVE METABOLIC 76214 CHLORIDE 106 MMOL/L 04/01 Unknown COMPREHENSIVE METABOLIC 90820 BILI TOT 0.4 MG/DL 2011 Unknown COMPREHENSIVE METABOLIC 12901 ALK PHOS 80 U/L 2011 Unknown COMPREHENSIVE METABOLIC 09398 SODIUM 141 MMOL/L 04/01 Unknown COMPREHENSIVE METABOLIC 57672 CREATININE 1.13 MG/DL 03/08 Unknown COMPREHENSIVE METABOLIC 62873 CALCIUM 9.4 MG/DL 2011 Unknown COMPREHENSIVE METABOLIC 33192 POTASSIUM 4.3 MMOL/L 04/01 Unknown COMPREHENSIVE METABOLIC 75739 PROT TOT 6.7 GM/DL 2011 Unknown COMPREHENSIVE METABOLIC 36293 Glucose 98 MG/DL 2011 Unknown COMPREHENSIVE METABOLIC 46668 BICARB 25 MMOL/L 2011 Unknown COMPREHENSIVE METABOLIC 55640 ANION GAP 10 MEQ/L 2011 Unknown LIPID GROUP 61972 HDL TEST 44 MG/DL 04/01/2011 Unknown LIPID GROUP 29533 TRIG 164 MG/DL 04/01/2011 Unknown LIPID GROUP 45616 TEST LDL 98 MG/DL 04/01/2011 Unknown LIPID GROUP 92651 CHOL 175 MG/DL 04/01/2011 Unknown LIPID GROUP 09686 RCHOL/HDL 3.98 RATIO 04/01/2011 Unknow n COMPLETE BLOOD COUNT 73711 WBC 6.7 10e9/L 04/01/19 12 Unknown COMPLETE BLOOD COUNT 48603 RBC 4.36 10e12/L 2011 Unknown COMPLETE BLOOD COUNT 32969 HGB 12.9 g/dL 2 Unknown COMPLETE BLOOD COUNT 80383 HCT DET 39.4 % 2 Unknown COMPLETE BLOOD COUNT 73931 MCV 90.4 fL 2 Unknown COMPLETE BLOOD COUNT 09709 MCH 29.6 pg 2 Unknown COMPLETE BLOOD COUNT 18318 MCHC 32.7 g/dL 2 Unknown COMPLETE BLOOD COUNT 25726 PLT 184 10e9/L 04/01/19 12 Unknown COMPLETE BLOOD COUNT 24517 MPV 10.9 fL 2 Unknown COMPLETE BLOOD COUNT 69600 CINTHYA % 41.5 % 2 Unknown COMPLETE BLOOD COUNT 65023 LY % 45.7 % 2 Unknown COMPLETE BLOOD COUNT 36952 MON % 9.4 % 2 Unknown COMPLETE BLOOD COUNT 58457 EOS % 3.0 % 2 Unknown COMPLETE BLOOD COUNT 03335 BASO % 0.4 % 2 Unknown COMPLETE BLOOD COUNT 28578 RDW 13.2 % 2 Unknown COMPLETE BLOOD COUNT 39938 ABS CINTHYA 2.78 10e9/L 012 Unknown COMPLETE BLOOD COUNT 37858 ABS LYMPH 3.06 10e9/L 012 Unknown COMPLETE BLOOD COUNT 78796 ABS MONO 0.63 10e9/L 012 Unknown COMPLETE BLOOD COUNT 56945 ABS EOS 0.20 10e9/L 012 Unknown COMPLETE BLOOD COUNT 69715 ABS BASO 0.03 10e9/L 012 Unknown COMPLETE BLOOD COUNT 09914 RDW-SD 42.3 fL 2 Unknown GFR CALC 1489941 GFR AA 57.0L ML/MIN 04/01/2011 Unknow n GFR CALC [id number] GFR NON-AA 47.0L ML/MIN 04/01/2011 Unkno wn THYROID STIMULATING HORMONE 63207 TSH 2.663 uIU/ML 04/01/2011 Unknown FREE T4 34498 FREE T4 1.15 NG/DL 04/01/2011 Unknown THYROID STIMULATING HORMONE 46273 TSH 1.908 uIU/ML 07/06/2010 Unknown COMPLETE BLOOD COUNT 40698 WBC 6.4 10e9/L 07/07/19 11 Unknown COMPLETE BLOOD COUNT 72810 RBC 3.92 10e12/L 2010 Unknown COMPLETE BLOOD COUNT 78757 HGB 11.8 g/dL 1 Unknown COMPLETE BLOOD COUNT 48265 HCT DET 36.0 % 1 Unknown COMPLETE BLOOD COUNT 67877 MCV 91.8 fL 1 Unknown COMPLETE BLOOD COUNT 10794 MCH 30.1 pg 1 Unknown COMPLETE BLOOD COUNT 63453 MCHC 32.8 g/dL 1 Unknown COMPLETE BLOOD COUNT 40962 PLT 176 10e9/L 07/07/19 11 Unknown COMPLETE BLOOD COUNT 31680 MPV 11.4 fL 1 Unknown COMPLETE BLOOD COUNT 64132 CINTHYA % 50.4 % 1 Unknown COMPLETE BLOOD COUNT 65452 LY % 35.5 % 1 Unknown COMPLETE BLOOD COUNT 00704 MON % 10.2 % 1 Unknown COMPLETE BLOOD COUNT 90602 EOS % 3.3 % 1 Unknown COMPLETE BLOOD COUNT 17908 BASO % 0.6 % 1 Unknown COMPLETE BLOOD COUNT 50398 RDW 13.7 % 1 Unknown COMPLETE BLOOD COUNT 81633 ABS CINTHYA 3.23 10e9/L 011 Unknown COMPLETE BLOOD COUNT 33133 ABS LYMPH 2.27 10e9/L 011 Unknown COMPLETE BLOOD COUNT 65729 ABS MONO 0.65 10e9/L 011 Unknown COMPLETE BLOOD COUNT 67629 ABS EOS 0.21 10e9/L 011 Unknown COMPLETE BLOOD COUNT 92564 ABS BASO 0.04 10e9/L 011 Unknown COMPLETE BLOOD COUNT 85468 RDW-SD 45.3 fL 1 Unknown GFR CALC 4246936 GFR AA >60 ML/MIN 07/06/2010 Unknown GFR CALC 7222338 GFR NON-AA 53.0L ML/MIN 07/06/2010 Unkno wn FREE T4 85319 FREE T4 1.20 NG/DL 07/06/2010 Unknown COMPREHENSIVE METABOLIC 77935 AST 17 U/L 2010 Unknown COMPREHENSIVE METABOLIC 06401 ALT 9 IU/L 2010 Unknown COMPREHENSIVE METABOLIC 93876 BUN 16 MG/DL 2010 Unknown COMPREHENSIVE METABOLIC 15291 ALBUMIN 4.0 GM/DL 2010 Unknown COMPREHENSIVE METABOLIC 50933 CHLORIDE 108 MMOL/L 07/06 Unknown COMPREHENSIVE METABOLIC 08729 BILI TOT 0.5 MG/DL 2010 Unknown COMPREHENSIVE METABOLIC 93241 ALK PHOS 76 U/L 2010 Unknown COMPREHENSIVE METABOLIC 89525 SODIUM 139 MMOL/L 07/06 Unknown COMPREHENSIVE METABOLIC 33708 CREATININE 1.02 MG/DL 04/2010 Unknown COMPREHENSIVE METABOLIC 60796 CALCIUM 9.2 MG/DL 2010 Unknown COMPREHENSIVE METABOLIC 50914 POTASSIUM 4.5 MMOL/L 07/06 Unknown COMPREHENSIVE METABOLIC 76859 PROT TOT 6.1 GM/DL 2010 Unknown COMPREHENSIVE METABOLIC 84802 Glucose 93 MG/DL 2010 Unknown COMPREHENSIVE METABOLIC 94463 BICARB 26 MMOL/L 2010 Unknown COMPREHENSIVE METABOLIC 23291 ANION GAP 5 MEQ/L 2010 Unknown LIPID GROUP 81801 HDL TEST 46 MG/DL 07/06/2010 Unknown LIPID GROUP 09854 TRIG 102 MG/DL 07/06/2010 Unknown LIPID GROUP 23623 TEST LDL 88 MG/DL 07/06/2010 Unknown LIPID GROUP 93201 CHOL 154 MG/DL 07/06/2010 Unknown LIPID GROUP 17474 RCHOL/HDL 3.35 RATIO 07/06/2010 Unknow n Procedures Procedure Codes Date ROUTINE VENIPUNCTURE CPT-4: 19185 03/13/2019 ASSAY THYROID STIM HORMONE CPT-4: 60382 03/13/2019 COMPLETE CBC W/AUTO DIFF WBC CPT-4: 68410 03/13/2019 COMPREHEN METABOLIC PANEL CPT-4: 36217 03/13/2019 ROUTINE VENIPUNCTURE CPT-4: 24232 01/23/2019 LIPID PANEL CPT-4: 71665 01/23/2019 FLU VACC PRSV FREE INC ANTIG 65 AND OLDER CPT-4: 78093 12/26/2018 FLU VACC PRSV FREE INC ANTIG 65 AND OLDER CPT-4: 38764 12/26/2018 ADMIN INFLUENZA VIRUS VAC CPT-4: G0008 12/26/2018 COMPREHEN METABOLIC PANEL CPT-4: 21399 12/15/2018 ROUTINE VENIPUNCTURE CPT-4: 88221 12/15/2018 ROUTINE VENIPUNCTURE CPT-4: 84416 08/14/2018 ASSAY THYROID STIM HORMONE CPT-4: 16738 08/14/2018 COMPREHEN METABOLIC PANEL CPT-4: 37541 08/14/2018 COMPLETE CBC W/AUTO DIFF WBC CPT-4: 78532 08/14/2018 URINALYSIS NONAUTO W/O SCOPE CPT-4: 29809 05/10/2018 URINE CULTURE/ COLONY COUNT CPT-4: 13593 05/10/2018 URINE CULTURE/ COLONY COUNT CPT-4: 74141 12/06/2017 ROUTINE VENIPUNCTURE CPT-4: 26260 11/30/2017 ASSAY OF FREE THYROXINE CPT-4: 02104 11/30/2017 ASSAY THYROID STIM HORMONE CPT-4: 88963 11/30/2017 COMPLETE CBC W/AUTO DIFF WBC CPT-4: 46338 11/30/2017 METABOLIC PANEL TOTAL CA CPT-4: 86428 11/30/2017 FLU VACC PRSV FREE INC ANTIG 65 AND OLDER CPT-4: 65736 11/22/2017 ASSAY, GLUCOSE, BLOOD QUANT CPT-4: 04394 11/22/2017 ADMIN INFLUENZA VIRUS VAC CPT-4: G0008 11/22/2017 ROUTINE VENIPUNCTURE CPT-4: 29615 09/27/2017 COMPREHEN METABOLIC PANEL CPT-4: 68970 09/27/2017 COMPLETE CBC W/AUTO DIFF WBC CPT-4: 64948 09/27/2017 A1C HPLC CPT-4: 95427 09/27/2017 ASSAY OF TROPONIN QUANT CPT-4: 69898 09/27/2017 LIPID PANEL CPT-4: 75880 09/27/2017 THER/PROPH/DIAG INJ SC/IM CPT-4: 88701 05/30/2017 TRIAMCINOLONE ACET INJ NOS CPT-4: J3301 05/30/2017 URINALYSIS NONAUTO W/O SCOPE CPT-4: 75776 04/18/2017 URINE CULTURE/ COLONY COUNT CPT-4: 19329 04/18/2017 FLU VACC PRSV FREE INC ANTIG 65 AND OLDER CPT-4: 11338 12/10/2016 ADMIN INFLUENZA VIRUS VAC CPT-4: G0008 12/10/2016 ROUTINE VENIPUNCTURE CPT-4: 55511 11/01/2016 COMPREHEN METABOLIC PANEL CPT-4: 35464 11/01/2016 COMPLETE CBC W/AUTO DIFF WBC CPT-4: 65034 11/01/2016 LIPID PANEL CPT-4: 58710 11/01/2016 A1C HPLC CPT-4: 79604 11/01/2016 ASSAY THYROID STIM HORMONE CPT-4: 15963 11/01/2016 ROUTINE VENIPUNCTURE CPT-4: 09886 05/13/2016 ASSAY THYROID STIM HORMONE CPT-4: 99903 05/13/2016 COMPREHEN METABOLIC PANEL CPT-4: 12380 05/13/2016 COMPLETE CBC W/AUTO DIFF WBC CPT-4: 78019 05/13/2016 A1C HPLC CPT-4: 19848 05/13/2016 FLU VACC PRSV FREE INC ANTIG 65 AND OLDER CPT-4: 82642 12/12/2015 ADMIN INFLUENZA VIRUS VAC CPT-4: G0008 12/12/2015 ROUTINE VENIPUNCTURE CPT-4: 55771 11/25/2015 ASSAY OF FREE THYROXINE CPT-4: 10491 11/25/2015 ASSAY THYROID STIM HORMONE CPT-4: 15327 11/25/2015 COMPREHEN METABOLIC PANEL CPT-4: 23997 11/25/2015 COMPLETE CBC W/AUTO DIFF WBC CPT-4: 79697 11/25/2015 LIPID PANEL CPT-4: 40754 11/25/2015 A1C HPLC CPT-4: 07728 11/25/2015 URINALYSIS NONAUTO W/O SCOPE CPT-4: 05452 05/21/2015 ROUTINE VENIPUNCTURE CPT-4: 37078 02/19/2015 METABOLIC PANEL TOTAL CA CPT-4: 76663 02/19/2015 PRESCRIP TRANSMIT VIA ERX SY CPT-4: G8553 02/19/2015 FLU VACC PRSV FREE INC ANTIG 65 AND OLDER CPT-4: 13582 12/20/2014 ADMIN INFLUENZA VIRUS VAC CPT-4: G0008 12/20/2014 URINALYSIS NONAUTO W/O SCOPE CPT-4: 57714 11/19/2014 URINE CULTURE/ COLONY COUNT CPT-4: 40332 11/19/2014 ROUTINE VENIPUNCTURE CPT-4: 75554 11/14/2014 ASSAY OF FREE THYROXINE CPT-4: 04462 11/14/2014 ASSAY THYROID STIM HORMONE CPT-4: 95799 11/14/2014 COMPREHEN METABOLIC PANEL CPT-4: 42429 11/14/2014 COMPLETE CBC W/AUTO DIFF WBC CPT-4: 33788 11/14/2014 LIPID PANEL CPT-4: 53095 11/14/2014 A1C HPLC CPT-4: 78238 11/14/2014 CERUM REMOVAL CPT-4: 35772 09/27/2014 PRESCRIP TRANSMIT VIA ERX SY CPT-4: G8553 07/11/2014 FLUZONE, 5ML (Medicare) CPT-4: Q2038 12/21/2013 ADMIN INFLUENZA VIRUS VAC CPT-4: G0008 12/21/2013 PRESCRIP TRANSMIT VIA ERX SY CPT-4: G8553 10/17/2013 PRESCRIP TRANSMIT VIA ERX SY CPT-4: G8553 09/24/2013 PRESCRIP TRANSMIT VIA ERX SY CPT-4: G8553 05/31/2013 ROUTINE VENIPUNCTURE CPT-4: 50561 03/28/2013 ASSAY OF FREE THYROXINE CPT-4: 95899 03/28/2013 ASSAY THYROID STIM HORMONE CPT-4: 21412 03/28/2013 COMPREHEN METABOLIC PANEL CPT-4: 34041 03/28/2013 COMPLETE CBC W/AUTO DIFF WBC CPT-4: 53198 03/28/2013 LIPID PANEL CPT-4: 27037 03/28/2013 A1C HPLC CPT-4: 19999 03/28/2013 VITAMIN B 12 FOLIC ACID CPT-4: 52643|20044 03/28/2013 PRESCRIP TRANSMIT VIA ERX SY CPT-4: G8553 03/26/2013 PRESCRIP TRANSMIT VIA ERX SY CPT-4: G8553 12/19/2012 FLUZONE, 5ML (Medicare) CPT-4: Q2038 11/27/2012 ADMIN INFLUENZA VIRUS VAC CPT-4: G0008 11/27/2012 PRESCRIP TRANSMIT VIA ERX SY CPT-4: G8553 10/04/2012 PRESCRIP TRANSMIT VIA ERX SY CPT-4: G8553 07/14/2012 ROUTINE VENIPUNCTURE CPT-4: 29277 02/23/2012 ASSAY OF FREE THYROXINE CPT-4: 32200 02/23/2012 ASSAY THYROID STIM HORMONE CPT-4: 28755 02/23/2012 COMPREHEN METABOLIC PANEL CPT-4: 37961 02/23/2012 COMPLETE CBC W/AUTO DIFF WBC CPT-4: 56912 02/23/2012 LIPID PANEL CPT-4: 98287 02/23/2012 A1C GLYCOSYLATED HEMOGLOBIN TEST CPT-4: 15754 012 CERUM REMOVAL CPT-4: 31372 02/22/2012 PRESCRIP TRANSMIT VIA ERX SY CPT-4: G8553 02/22/2012 PRESCRIP TRANSMIT VIA ERX SY CPT-4: G8553 12/15/2011 FLUZONE, 5ML (Medicare) CPT-4: Q2038 12/02/2011 ADMIN INFLUENZA VIRUS VAC CPT-4: G0008 12/02/2011 ASSAY, GLUCOSE, BLOOD QUANT CPT-4: 58060 09/21/2011 URINALYSIS NONAUTO W/O SCOPE CPT-4: 28561 09/16/2011 URINE CULTURE/ COLONY COUNT CPT-4: 72312 09/16/2011 ROUTINE VENIPUNCTURE CPT-4: 42855 09/15/2011 ASSAY OF FREE THYROXINE CPT-4: 47860 09/15/2011 ASSAY THYROID STIM HORMONE CPT-4: 38902 09/15/2011 COMPREHEN METABOLIC PANEL CPT-4: 32926 09/15/2011 COMPLETE CBC W/AUTO DIFF WBC CPT-4: 70511 09/15/2011 LIPID PANEL CPT-4: 84117 09/15/2011 ASSAY OF INSULIN CPT-4: 21491 09/15/2011 A1C GLYCOSYLATED HEMOGLOBIN TEST CPT-4: 41083 012 DRAIN/INJECT JOINT/BURSA CPT-4: 46559 08/16/2011 METHYLPREDNISOLONE 40 MG INJ CPT-4: J1030 08/16/2011 TRIAMCINOLONE ACET INJ NOS CPT-4: J3301 08/16/2011 PRESCRIP TRANSMIT VIA ERX SY CPT-4: G8553 08/03/2011 PRESCRIP TRANSMIT VIA ERX SY CPT-4: G8553 07/26/2011 METHYLPREDNISOLONE 40 MG INJ CPT-4: J1030 06/28/2011 DRAIN/INJECT JOINT/BURSA CPT-4: 43392 06/28/2011 TRIAMCINOLONE ACET INJ NOS CPT-4: J3301 06/28/2011 PRESCRIP TRANSMIT VIA ERX SY CPT-4: G8553 06/28/2011 ROUTINE VENIPUNCTURE CPT-4: 01554 04/01/2011 ASSAY OF FREE THYROXINE CPT-4: 31654 04/01/2011 ASSAY THYROID STIM HORMONE CPT-4: 19612 04/01/2011 COMPREHEN METABOLIC PANEL CPT-4: 57718 04/01/2011 COMPLETE CBC W/AUTO DIFF WBC CPT-4: 54019 04/01/2011 LIPID PANEL CPT-4: 78949 04/01/2011 PRESCRIP TRANSMIT VIA ERX SY CPT-4: G8553 03/31/2011 CERUM REMOVAL CPT-4: 59270 02/11/2011 PRESCRIP TRANSMIT VIA ERX SY CPT-4: G8553 02/11/2011 FLUZONE, 5ML (Medicare) CPT-4: Q2038 12/09/2010 ADMIN INFLUENZA VIRUS VAC CPT-4: G0008 12/09/2010 PRESCRIP TRANSMIT VIA ERX SY CPT-4: G8553 10/15/2010 URINALYSIS NONAUTO W/O SCOPE CPT-4: 10027 09/29/2010 URINE CULTURE/ COLONY COUNT CPT-4: 38550 09/29/2010 CUR TOBACCO NON-USER CPT-4: G8457 09/29/2010 ROUTINE VENIPUNCTURE CPT-4: 98807 07/06/2010 COMPLETE CBC W/AUTO DIFF WBC CPT-4: 43881 07/06/2010 COMPREHEN METABOLIC PANEL CPT-4: 47785 07/06/2010 LIPID PANEL CPT-4: 07999 07/06/2010 ASSAY THYROID STIM HORMONE CPT-4: 28697 07/06/2010 ASSAY OF FREE THYROXINE CPT-4: 03315 07/06/2010 PRESCRIP TRANSMIT VIA ERX SY CPT-4: G8553 07/02/2010 INJ TRIGGER POINT 1/2 MUSCL CPT-4: 13037 04/06/2010 TRIAMCINOLONE ACET INJ NOS CPT-4: J3301 04/06/2010 METHYLPREDNISOLONE 40 MG INJ CPT-4: J1030 04/06/2010 THER/PROPH/DIAG INJ SC/IM CPT-4: 49883 04/01/2010 KETOROLAC TROMETHAMINE INJ CPT-4: J1885 04/01/2010 PRESCRIP TRANSMIT VIA ERX SY CPT-4: G8553 01/22/2010 FLU VACCINE 3 YRS & > IM UP 64 CPT-4: 81213 0 ADMIN INFLUENZA VIRUS VAC CPT-4: G0008 12/10/2009 URINALYSIS NONAUTO W/O SCOPE CPT-4: 90080 12/02/2009 URINE CULTURE/ COLONY COUNT CPT-4: 63582 12/02/2009 PRESCRIP TRANSMIT VIA ERX SY CPT-4: G8553 12/02/2009 THER/PROPH/DIAG INJ SC/IM CPT-4: 70195 09/10/2009 VITAMIN B12 INJECTION CPT-4: J3420 09/10/2009 THER/PROPH/DIAG INJ SC/IM CPT-4: 43245 08/11/2009 VITAMIN B12 INJECTION CPT-4: J3420 08/11/2009 ROUTINE VENIPUNCTURE CPT-4: 34648 06/10/2009 Vital Signs Date Vital 04/03/2019 Blood [...] 1: 142/60 Code: 8480-6 BMI: 38.2 Code: 29305-1 Heart Rate 1: 48 bpm Height: 5'2" Respiratory Rate: 20 bpm SpO2: 98% Tempera ture: 36.7 (C) / 98.1 (F) Weight: 212 lbs 01/10/2018 Blood Pressure 1: 142/64 Code: 8480-6 BMI: 38.5 Code: 94839-1 Heart Rate 1: 52 bpm Height: 5'2" Respiratory Rate: 22 bpm SpO2: 96% Tempera ture: 36.1 (C) / 96.9 (F) Weight: 214 lbs 12/06/2017 Blood Pressure 1: 124/80 Code: 8480-6 BMI: 38.3 Code: 13559-3 Heart Rate 1: 68 bpm Height: 5'2" Respiratory Rate: 20 bpm Temperature: 36 .3 (C) / 97.4 (F) Weight: 213 lbs 11/22/2017 Blood Pressure 1: 132/78 Code: 8480-6 BMI: 37.6 Code: 42056-4 Heart Rate 1: 68 bpm Height: 5'2" Respiratory Rate: 20 bpm SpO2: 97% Tempera ture: 36.8 (C) / 98.2 (F) Weight: 209 lbs 10/20/2017 Blood Pressure 1: 150/76 Code: 8480-6 BMI: 38.5 Code: 39170-7 Heart Rate 1: 64 bpm Height: 5'2" Respiratory Rate: 20 bpm SpO2: 97% Tempera ture: 36.2 (C) / 97.2 (F) Weight: 214 lbs 09/27/2017 Blood Pressure 1: 122/74 Code: 8480-6 BMI: 38.2 Code: 11222-8 Heart Rate 1: 64 bpm Height: 5'2" Respiratory Rate: 18 bpm SpO2: 96% Tempera ture: 35.8 (C) / 96.4 (F) Weight: 212 lbs 08/16/2017 Blood Pressure 1: 124/78 Code: 8480-6 BMI: 37.8 Code: 41501-4 Heart Rate 1: 76 bpm Height: 5'2" Respiratory Rate: 20 bpm Temperature: 36 .8 (C) / 98.3 (F) Weight: 210 lbs 07/07/2017 Blood Pressure 1: 136/70 Code: 8480-6 BMI: 38.0 Code: 91968-1 Heart Rate 1: 68 bpm Height: 5'2" Respiratory Rate: 20 bpm SpO2: 97% Tempera ture: 36.8 (C) / 98.2 (F) Weight: 211 lbs 05/30/2017 Blood Pressure 1: 140/65 Code: 8480-6 Heart Rate 1: 75 bpm Respiratory Rate: 24 bpm SpO2: 95% Temperature: 37.0 (C) / 98.6 (F) We ight: 211 lbs 04/18/2017 Blood Pressure 1: 154/70 Code: 8480-6 BMI: 37.6 Code: 67753-5 Heart Rate 1: 76 bpm Height: 5'2" Respiratory Rate: 20 bpm SpO2: 98% Tempera ture: 36.9 (C) / 98.5 (F) Weight: 209 lbs 10/25/2016 Blood Pressure 1: 156/70 Code: 8480-6 BMI: 37.1 Code: 03534-6 Heart Rate 1: 72 bpm Height: 5'2" Respiratory Rate: 20 bpm SpO2: 97% Tempera ture: 37.0 (C) / 98.6 (F) Weight: 206 lbs 09/20/2016 Blood Pressure 1: 152/78 Code: 8480-6 BMI: 36.8 Code: 67306-6 Heart Rate 1: 78 bpm Height: 5'2" Respiratory Rate: 20 bpm SpO2: 98% Tempera ture: 36.1 (C) / 97.0 (F) Weight: 204 lbs 05/12/2016 Blood Pressure 1: 142/70 Code: 8480-6 BMI: 36.9 Code: 93857-9 Heart Rate 1: 64 bpm Height: 5'2" [...] 1: 122/64 Code: 8480-6 BMI: 39.1 Code: 96641-3 Heart Rate 1: 76 bpm Height: 5'2" Respiratory Rate: 20 bpm Temperature: 36 .8 (C) / 98.2 (F) Weight: 217 lbs 05/21/2015 Blood Pressure 1: 144/70 Code: 8480-6 BMI: 39.4 Code: 84657-5 Heart Rate 1: 76 bpm Height: 5'2" Respiratory Rate: 20 bpm Temperature: 36 .6 (C) / 97.9 (F) Weight: 219 lbs 02/19/2015 Blood Pressure 1: 152/60 Code: 8480-6 BMI: 39.6 Code: 85864-1 Heart Rate 1: 84 bpm Height: 5'2" Respiratory Rate: 20 bpm Temperature: 37 .0 (C) / 98.6 (F) Weight: 220 lbs 11/13/2014 Blood Pressure 1: 146/76 Code: 8480-6 BMI: 39.8 Code: 50579-5 Heart Rate 1: 88 bpm Height: 5'2" Respiratory Rate: 20 bpm Temperature: 37 .0 (C) / 98.6 (F) Weight: 221 lbs 09/27/2014 Blood Pressure 1: 132/70 Code: 8480-6 BMI: 39.1 Code: 91076-8 Heart Rate 1: 88 bpm Height: 5'2" Respiratory Rate: 20 bpm Temperature: 36 .4 (C) / 97.6 (F) Weight: 217 lbs 07/11/2014 Blood Pressure 1: 132/66 Code: 8480-6 BMI: 39.9 Code: 32609-7 Heart Rate 1: 72 bpm Height: 5'2" Respiratory Rate: 20 bpm Temperature: 36 .9 (C) / 98.4 (F) Weight: 218 lbs 05/23/2014 Blood Pressure 1: 136/80 Code: 8480-6 Heart Rate 1: 76 bpm Respiratory Rate: 20 bpm Temperature: 36.7 (C) / 98.0 (F) Weight: 224 lbs 03/20/2014 Blood Pressure 1: 134/78 Code: 8480-6 BMI: 39.7 Code: 24889-6 Heart Rate 1: 84 bpm Height: 5'2" Respiratory Rate: 20 bpm Temperature: 36 .7 (C) / 98.0 (F) Weight: 217 lbs 10/17/2013 Blood Pressure 1: 146/78 Code: 8480-6 BMI: 39.5 Code: 19116-3 Heart Rate 1: 82 bpm Height: 5'2" Respiratory Rate: 18 bpm Temperature: 35 .6 (C) / 96.1 (F) Weight: 216 lbs 09/24/2013 Blood Pressure 1: 134/70 Code: 8480-6 BMI: 37.9 Code: 76394-4 Heart Rate 1: 80 bpm Height: 5'3" Respiratory Rate: 20 bpm Temperature: 36 .8 (C) / 98.2 (F) Weight: 214 lbs 05/31/2013 Blood Pressure 1: 132/70 Code: 8480-6 BMI: 37.6 Code: 87433-0 Heart Rate 1: 80 bpm Height: 5'3" Respiratory Rate: 20 bpm Temperature: 36 .8 (C) / 98.3 (F) Weight: 212 lbs 03/26/2013 Blood Pressure 1: 116/74 Code: 8480-6 Heart Rate 1: 68 bpm Respiratory Rate: 20 bpm Temperature: 36.2 (C) / 97.1 (F) Weight: 212 lbs 12/19/2012 Blood Pressure 1: 132/82 Code: 8480-6 BMI: 37.4 Code: 41735-7 Heart Rate 1: 76 bpm Height: 5'3" Respiratory Rate: 20 bpm Temperature: 36 .7 (C) / 98.0 (F) Weight: 211 lbs 12/04/2012 Blood Pressure 1: 130/76 Code: 8480-6 He art Rate 1: 78 bpm 11/27/2012 Blood Pressure 1: 140/82 Code: 8480-6 BMI: 36.8 Code: 38880-6 Heart Rate 1: 66 bpm Height: 5'3" Respiratory Rate: 20 bpm Temperature: 36 .1 (C) / 96.9 (F) Weight: 208 lbs 10/04/2012 Blood Pressure 1: 138/80 Code: 8480-6 BMI: 36.4 Code: 70211-6 Heart Rate 1: 72 bpm Height: 5'4" Respiratory Rate: 20 bpm Temperature: 36 .7 (C) / 98.0 (F) Weight: 212 lbs 07/27/2012 Blood Pressure 1: 124/70 Code: 8480-6 BMI: 36.9 Code: 87160-7 Heart Rate 1: 60 bpm Height: 5'4" Temperature: 36.1 (C) / 97.0 (F) Weight: 215 lbs 07/14/2012 Blood Pressure 1: 132/86 Code: 8480-6 BMI: 36.9 Code: 60609-0 Heart Rate 1: 76 bpm Height: 5'4" Respiratory Rate: 20 bpm Temperature: 36 .8 (C) / 98.2 (F) Weight: 215 lbs 06/08/2012 Blood Pressure 1: 134/82 Code: 8480-6 BMI: 36.6 Code: 60658-9 Heart Rate 1: 72 bpm Height: 5'4" Respiratory Rate: 20 bpm Temperature: 36 .3 (C) / 97.4 (F) Weight: 213 lbs 02/22/2012 Blood Pressure 1: 142/80 Code: 8480-6 BMI: 37.1 Code: 28367-6 Heart Rate 1: 76 bpm Height: 5'4" Respiratory Rate: 20 bpm Temperature: 36 .8 (C) / 98.3 (F) Weight: 216 lbs 12/28/2011 Blood Pressure 1: 128/68 Code: 8480-6 BMI: 37.6 Code: 81225-5 Heart Rate 1: 72 bpm Height: 5'4" [...] 1: 128/78 Code: 8480-6 BMI: 38.1 Code: 22073-1 Heart Rate 1: 84 bpm Height: 5'4" Respiratory Rate: 20 bpm Temperature: 36 .9 (C) / 98.4 (F) Weight: 222 lbs 08/16/2011 Blood Pressure 1: 138/80 Code: 8480-6 BMI: 37.9 Code: 83849-2 Heart Rate 1: 74 bpm Height: 5'4" Temperature: 36.1 (C) / 97.0 (F) Weight: 221 lbs 08/03/2011 Blood Pressure 1: 126/78 Code: 8480-6 BMI: 38.4 Code: 82396-2 Heart Rate 1: 72 bpm Height: 5'4" Respiratory Rate: 20 bpm Temperature: 36 .7 (C) / 98.0 (F) Weight: 224 lbs 07/26/2011 Blood Pressure 1: 138/72 Code: 8480-6 BMI: 38.4 Code: 77215-2 Heart Rate 1: 72 bpm Height: 5'4" Respiratory Rate: 20 bpm Temperature: 36 .6 (C) / 97.9 (F) Weight: 224 lbs 06/28/2011 Blood Pressure 1: 122/78 Code: 8480-6 BMI: 38.8 Code: 42303-7 Heart Rate 1: 88 bpm Height: 5'4" Respiratory Rate: 20 bpm Temperature: 36 .6 (C) / 97.8 (F) Weight: 226 lbs 03/31/2011 Blood Pressure 1: 116/60 Code: 8480-6 BMI: 38.1 Code: 33101-4 Heart Rate 1: 92 bpm Height: 5'4" Respiratory Rate: 20 bpm Temperature: 36 .8 (C) / 98.2 (F) Weight: 222 lbs 02/11/2011 Blood Pressure 1: 118/62 Code: 8480-6 BMI: 37.9 Code: 35908-7 Heart Rate 1: 80 bpm Height: 5'4" Temperature: 36.5 (C) / 97.7 (F) Weight: 221 lbs 10/15/2010 Blood Pressure 1: 132/70 Code: 8480-6 Heart Rate 1: 84 bpm Respiratory Rate: 20 bpm Temperature: 36.7 (C) / 98.0 (F) Weight: 221 lbs 09/29/2010 Blood Pressure 1: 114/72 Code: 8480-6 BMI: 37.6 Code: 75908-2 Heart Rate 1: 76 bpm Height: 5'4" [...] 1: 120/70 Code: 8480-6 BMI: 38.3 Code: 52359-0 Heart Rate 1: 88 bpm Height: 5'5" [...] but had more that day. [facility] began to feel very ill and became [...] 06/09/2009 Encounters Encounter Performer Location Codes Date ([id number]) OFFICE/OUTPATIENT VISIT EST Diagnosis: Essential (primary) hypertension[ICD10: I10] Diagnosis: Generalized anxiety disorder[ICD10: F41.1] Vikki GUAMAN [facility] CPT-4: 35622 04/03/2019 ([id number]) OFFICE/OUTPATIENT VISIT EST Diagnosis: Essential (primary) hypertension[ICD10: I10] Diagnosis: Palpitations[ICD10: R00.2] Vikki BENJAMIN [facility] CPT-4: 12322 03/20/2019 ([id number]) OFFICE/OUTPATIENT VISIT EST Diagnosis: Essential hypertension[ICD10: I10] Diagnosis: Palpitations[ICD10: R00.2] Diagnosis: Stress reaction[ICD10: F43.0] Vikki GUAMAN DO [facility] CPT-4: 66749 03/13/2019 ([id number]) NURSE/OUTPATIENT VISIT EST Diagnosis: Mixed hyperlipidemia[ICD10: E78.2] Vikki GUAMAN DO [facility] CPT-4: 41689 01/23/2019 ([id number]) NURSE/OUTPATIENT VISIT EST Diagnosis: FLU VACCINE[ICD10: Z23] Vikki BALL DO [facility] CPT-4: 38408 12/26/2018 ([id number]) NURSE/OUTPATIENT VISIT EST Diagnosis: Chronic kidney disease, stage 1[ICD10: N18.1] Vikki GUAMAN DO [facility] CPT-4: 39010 12/15/2018 ([id number]) OFFICE/OUTPATIENT VISIT EST Diagnosis: Acute serous otitis media, left ear[ICD10: H65.02] Jennifer GUAMAN DO [facility] CPT-4: 33871 11/07/2018 ([id number]) OFFICE/OUTPATIENT VISIT EST Diagnosis: Essential (primary) hypertension[ICD10: I10] Diagnosis: 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] Diagnosis: Hypoglycemia, unspecified[ICD10: E16.2] Diagnosis: Other fatigue[ICD10: R53.83] Diagnosis: Urinary tract infection, site not specified[ICD10: N39.0] Vikki GUAMAN DO [facility] CPT-4: 09979 08/14/2018 ([id number]) OFFICE/OUTPATIENT VISIT EST Diagnosis: Essential (primary) hypertension[ICD10: I10] Diagnosis: Gastro-esophageal reflux disease without esophagitis[ICD10: K21.9] Diagnosis: Urinary tract infection, site not specified[ICD10: N39.0] Vikki GUAMAN DO [facility] CPT-4: 21481 05/10/2018 ([id number]) OFFICE/OUTPATIENT VISIT EST Diagnosis: Gastro-esophageal reflux disease without esophagitis[ICD10: K21.9] Diagnosis: Epigastric pain[ICD10: R10.13] Vikki GUAMAN [employer] [facility] CPT-4: 94586 02/14/2018 ([id number]) OFFICE/OUTPATIENT VISIT EST 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] Diagnosis: Essential (primary) hypertension[ICD10: I10] Diagnosis: Generalized anxiety disorder[ICD10: F41.1] Diagnosis: Gastro-esophageal reflux disease without esophagitis[ICD10: K21.9] Vikki GUAMAN [employer] [facility] CPT-4: 15480 01/10/2018 OFFICE/OUTPATIENT VISIT EST Diagnosis: Gastro-esophageal reflux disease without esophagitis[ICD10: K21.9] Diagnosis: Palpitations[ICD10: R00.2] Diagnosis: Urinary tract infection, site not specified[ICD10: N39.0] Diagnosis: Generalized anxiety disorder[ICD10: F41.1] Vikki CID [employer] [facility] CPT-4: 33919 12/06/2017 ([id number]) NURSE/OUTPATIENT VISIT EST Diagnosis: 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] Diagnosis: Hypoglycemia, unspecified[ICD10: E16.2] Diagnosis: Dizziness and giddiness[ICD10: R42] Diagnosis: Occlusion and stenosis of bilateral carotid arteries[ICD10: I65.23] Vikki GUAMAN [employer] [facility] CPT-4: 58955 11/30/2017 OFFICE/OUTPATIENT VISIT EST Diagnosis: Epigastric pain[ICD10: R10.13] Diagnosis: Generalized anxiety disorder[ICD10: F41.1] Diagnosis: FLU VACCINE[ICD10: Z23] Vikki CID [employer] [facility] CPT-4: 02489 11/22/2017 ([id number]) OFFICE/OUTPATIENT VISIT EST Diagnosis: Essential (primary) hypertension[ICD10: I10] Diagnosis: Hypoglycemia, unspecified[ICD10: E16.2] Diagnosis: Gastro-esophageal reflux disease without esophagitis[ICD10: K21.9] Vikki GUAMAN [facility] CPT-4: 99755 10/20/2017 ([id number]) OFFICE/OUTPATIENT VISIT EST Diagnosis: Dizziness and giddiness[ICD10: R42] Jennifer GUAMAN [facility] CPT-4: 75728 09/27/2017 ([id number]) OFFICE/OUTPATIENT VISIT EST Diagnosis: Cervicalgia[ICD10: M54.2] Diagnosis: Other spondylosis with radiculopathy, cervical region[ICD10: M47.22] Vikki GUAMAN [facility] CPT-4: 79848 08/16/2017 ([id number]) OFFICE/OUTPATIENT VISIT EST Diagnosis: Hypoglycemia, unspecified[ICD10: E16.2] Diagnosis: Other spondylosis with radiculopathy, cervical region[ICD10: M47.22] Diagnosis: Vertigo of central origin, 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] Diagnosis: 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] [facility] 715[facility] 07/07/2017 ([id number]) OFFICE/OUTPATIENT VISIT EST Diagnosis: Benign paroxysmal vertigo, bilateral[ICD10: H81.13] Diagnosis: Otalgia, bilateral[ICD10: H92.03] Jennifer GUAMAN [facility] CPT-4: 37102 05/30/2017 ([id number]) OFFICE/OUTPATIENT VISIT EST Diagnosis: Low back pain[ICD10: M54.5] Diagnosis: Radiculopathy, lumbosacral region[ICD10: M54.17] Diagnosis: Left lower quadrant pain[ICD10: R10.32] Vikki Ciscofunmilayosakshi KEELUTHER Alyssa GUAMAN [employer] [facility] CPT-4: 34334 04/18/2017 ([id number]) OFFICE/OUTPATIENT VISIT EST Diagnosis: FLU VACCINE[ICD10: Z23] Vikki Peckfunmilayosakshi [facility] CPT-4: 38888 12/10/2016 ([id number]) OFFICE/OUTPATIENT VISIT EST Diagnosis: Mixed hyperlipidemia[ICD10: E78.2] Diagnosis: Essential (primary) hypertension[ICD10: I10] 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] Diagnosis: Impaired fasting glucose[ICD10: R73.01] Diagnosis: Other fatigue[ICD10: R53.83] Vikki GUAMAN [facility] CPT-4: 45128 11/01/2016 ([id number]) OFFICE/OUTPATIENT VISIT EST Diagnosis: Pain in thoracic spine[ICD10: M54.6] Diagnosis: Other intervertebral disc degeneration, 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] Vikki GUAMAN [facility] CPT-4: 78095 10/25/2016 ([id number]) OFFICE/OUTPATIENT VISIT EST Diagnosis: Left lower quadrant pain[ICD10: R10.32] Diagnosis: Low back pain[ICD10: M54.5] Vikki RUBI [facility] CPT-4: 30447 09/20/2016 ([id number]) OFFICE/OUTPATIENT VISIT EST Diagnosis: Mixed hyperlipidemia[ICD10: E78.2] Diagnosis: Essential (primary) hypertension[ICD10: I10] Diagnosis: Hypoglycemia, unspecified[ICD10: E16.2] Vikki GUAMAN [facility] CPT-4: 20412 05/13/2016 ([id number]) OFFICE/OUTPATIENT VISIT EST Diagnosis: Impaired fasting glucose[ICD10: R73.01] Diagnosis: Mastodynia[ICD10: N64.4] Diagnosis: Mixed hyperlipidemia[ICD10: E78.2] Diagnosis: Essential (primary) hypertension[ICD10: I10] Diagnosis: Other fatigue[ICD10: R53.83] Vikki GUAMAN [facility] CPT-4: 53605 05/12/2016 ([id number]) OFFICE/OUTPATIENT VISIT EST Diagnosis: Acute upper respiratory infection, unspecified[ICD10: J06.9] Yue Moya VIKKI GUAMAN [facility] CPT-4: 17330 03/18/2016 ([id number]) OFFICE/OUTPATIENT VISIT EST Diagnosis: Acute mastoiditis without complications, right ear[ICD10: H70.001] Vikki Deniz GUAMAN [facility] CPT-4: 47446 02/06/2016 ([id number]) OFFICE/OUTPATIENT VISIT EST Diagnosis: FLU VACCINE[ICD10: Z23] Vikki BALL [facility] CPT-4: 52423 12/12/2015 ([id number]) OFFICE/OUTPATIENT VISIT EST Diagnosis: Mixed hyperlipidemia[ICD10: E78.2] Diagnosis: Essential (primary) hypertension[ICD10: I10] 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] Diagnosis: Impaired fasting glucose[ICD10: R73.01] Vikki KEELUTHER Alyssa GUAMAN DO [facility] CPT-4: 98474 11/25/2015 ([id number]) OFFICE/OUTPATIENT VISIT EST Diagnosis: Constipation, unspecified[ICD10: K59.00] Vikki GUAMAN DO [facility] CPT-4: 15567 08/26/2015 ([id number]) OFFICE/OUTPATIENT VISIT EST Diagnosis: Essential (primary) hypertension[ICD10: I10] Diagnosis: Mixed hyperlipidemia[ICD10: E78.2] Diagnosis: Chronic kidney disease, stage 1[ICD10: N18.1] Vikki GUAMAN [facility] CPT-4: 77878 05/21/2015 ([id number]) OFFICE/OUTPATIENT VISIT EST Diagnosis: Muscle weakness (generalized)[ICD10: M62.81] Diagnosis: Dizziness and giddiness[ICD10: R42] Diagnosis: Essential (primary) hypertension[ICD10: I10] Diagnosis: History of falling[ICD10: Z91.81] Vikkiluther KEARNEYJEANNA GUAMAN [facility] CPT-4: 22309 02/19/2015 ([id number]) OFFICE/OUTPATIENT VISIT EST Diagnosis: FLU VACCINE[ICD10: Z23] Vikki Peckbhavya VIKKI Alyssa BALL [facility] CPT-4: 13977 12/20/2014 ([id number]) OFFICE/OUTPATIENT VISIT EST Diagnosis: Acute renal failure[ICD9: 584.9] Diagnosis: POLYURIA[ICD9: 788.42] Vikkiluther KEARNEYQUELINE AlejandraSujata MATY Rees [facility] CPT-4: 53297 11/19/2014 ([id number]) OFFICE/OUTPATIENT VISIT EST Diagnosis: HYPERLIPIDEMIA NEC/NOS[ICD9: 272.4] Diagnosis: HYPERTENSION[ICD9: 401.9] Diagnosis: CAD[ICD9: 414.00] Diagnosis: Hyperglycemia[ICD9: 790.29] Diagnosis: MALAISE AND FATIGUE[ICD9: 780.79] Vikki GUAMAN [employer] [facility] CPT-4: 55379 11/14/2014 ([id number]) OFFICE/OUTPATIENT VISIT EST Diagnosis: MALAISE AND FATIGUE[ICD9: 780.79] Diagnosis: HYPOGLYCEMIA[ICD9: 251.2] Diagnosis: Grieving[ICD9: 309.0] Diagnosis: ABDOMINAL PAIN[ICD9: 789.00] Vikki GUAMAN [employer] [facility] CPT-4: 14172 11/13/2014 OFFICE/OUTPATIENT VISIT EST Diagnosis: CERUMEN IMPACTION[ICD9: 380.4] Diagnosis: EUSTACHIAN TUBE DYSFUNCTION[ICD9: 381.81] Jessenia Penny VIKKI GUAMAN [employer] [facility] CPT-4: 42519 09/27/2014 ([id number]) OFFICE/OUTPATIENT VISIT EST Diagnosis: Leg pain[ICD9: 729.5] Diagnosis: SUPERFIC PHLEBITIS-LEG[ICD9: 451.0] Vikki GUAMAN [employer] [facility] CPT-4: 50439 07/11/2014 ([id number]) OFFICE/OUTPATIENT VISIT EST Diagnosis: Thoracic back pain[ICD9: 724.1] Diagnosis: SPASM OF MUSCLE[ICD9: 728.85] Vikki GUAMAN [employer] [facility] CPT-4: 68239 05/23/2014 ([id number]) OFFICE/OUTPATIENT VISIT EST Diagnosis: DIZZINESS/VERTIGO[ICD9: 780.4] Diagnosis: Benign positional vertigo[ICD9: 386.11] Diagnosis: HYPERTENSION[ICD9: 401.9] Diagnosis: Suspicious nevus[ICD9: 238.2] Vikki GUAMAN [employer] [facility] CPT-4: 79306 03/20/2014 ([id number]) OFFICE/OUTPATIENT VISIT EST Diagnosis: FLU VACCINE[ICD10: Z23] Vikki [facility] CPT-4: 04096 12/21/2013 OFFICE/OUTPATIENT VISIT EST Diagnosis: SINUSITIS, ACUTE[ICD9: 461.9] Diagnosis: EUSTACHIAN TUBE DYSFUNCTION[ICD9: 381.81] Jessenia [facility] CPT-[facility]: 66622 10/17/2013 ([id number]) OFFICE/OUTPATIENT VISIT EST Diagnosis: DIZZINESS/VERTIGO[ICD9: 780.4] Diagnosis: HYPERTENSION[ICD9: 401.9] Vikki PECK [facility] CPT-4: 69511 09/24/2013 ([id number]) OFFICE/OUTPATIENT VISIT EST Diagnosis: HYPERTENSION[ICD9: 401.9] Diagnosis: MALAISE AND FATIGUE[ICD9: 780.79] Diagnosis: SINUSITIS, ACUTE[ICD9: 461.9] Vikki [facility] C[facility]: 08433 05/31/2013 ([id number]) OFFICE/OUTPATIENT VISIT EST Diagnosis: HYPERLIPIDEMIA NEC/NOS[ICD9: 272.4] Diagnosis: HYPERTENSION[ICD9: 401.9] Diagnosis: B12 DEFIC ANEMIA NEC[ICD9: 281.1] Diagnosis: HYPOGLYCEMIA[ICD9: 251.2] [facility]: 08793 03/28/2013 OFFICE/OUTPATIENT VISIT EST Diagnosis: COUGH[ICD9: 786.2] Jessenia [facility]: 44066 03/26/2013 OFFICE/OUTPATIENT VISIT EST Diagnosis: COUGH[ICD9: 786.2] Diagnosis: URI, ACUTE[ICD9: 465.9] Jessenia [facility] CPT-4: 91464 12/19/2012 ([id number]) OFFICE/OUTPATIENT VISIT EST Diagnosis: HYPERTENSION[ICD9: 401.9] Diagnosis: CEPHALGIA[ICD9: 784.0] Diagnosis: ANXIETY STATE NOS[ICD9: 300.00] Diagnosis: FLU VACCINE[ICD9: V04.81] Vikki VENEGASR [facility] CPT-4: 99481 11/27/2012 ([id number]) OFFICE/OUTPATIENT VISIT EST Diagnosis: DIZZINESS/VERTIGO[ICD9: 780.4] Diagnosis: SINUSITIS, ACUTE[ICD9: 461.9] Diagnosis: Benign positional vertigo[ICD9: 386.11] Vikki GUAMAN [facility] CPT-4: 88396 10/04/2012 OFFICE/OUTPATIENT VISIT EST Diagnosis: OTITIS MEDIA NOS[ICD9: 382.9] Vikki GUAMAN [facility] CPT-4: 15367 07/27/2012 OFFICE/OUTPATIENT VISIT EST Diagnosis: Perforation of ear drum[ICD9: 384.20] Diagnosis: SINUSITIS, ACUTE[ICD9: 461.9] Vikki GUAMAN [facility] CPT-4: 94309 07/14/2012 ([id number]) OFFICE/OUTPATIENT VISIT EST Diagnosis: Mastalgia[ICD9: 611.71] Vikki [facility] CPT-4: 51594 06/08/2012 ([id number]) OFFICE/OUTPATIENT VISIT EST Diagnosis: HYPERLIPIDEMIA NEC/NOS[ICD9: 272.4] Diagnosis: HYPERTENSION[ICD9: 401.9] Diagnosis: DIZZINESS/VERTIGO[ICD9: 780.4] Diagnosis: Hyperglycemia[ICD9: 790.29] Diagnosis: MALAISE AND FATIGUE[ICD9: 780.79] Vikki [facility] C[facility]: 34878 02/23/2012 ([id number]) OFFICE/OUTPATIENT VISIT EST Diagnosis: EUSTACHIAN TUBE DYSFUNCTION[ICD9: 381.81] Diagnosis: DIZZINESS/VERTIGO[ICD9: 780.4] Diagnosis: ABDOMINAL PAIN[ICD9: 789.00] Diagnosis: GERD[ICD9: 530.81] Diagnosis: CERUMEN IMPACTION[ICD9: 380.4] Vikki GUAMAN [facility] CPT-4: 29784 02/22/2012 OFFICE/OUTPATIENT VISIT EST Diagnosis: ABDOMINAL PAIN[ICD9: 789.00] Diagnosis: DYSPEPSIA[ICD9: 536.8] Vikki Rees [facility] CPT-4: 52394 12/28/2011 ([id number]) OFFICE/OUTPATIENT VISIT EST Diagnosis: ABDOMINAL PAIN[ICD9: 789.00] Diagnosis: DYSPEPSIA[ICD9: 536.8] Diagnosis: IBS[ICD9: 564.1] Vikki GUAMAN [facility] CPT - 4: 41922 12/15/2011 OFFICE/OUTPATIENT VISIT EST Diagnosis: DIZZINESS/VERTIGO[ICD9: 780.4] Diagnosis: HYPOGLYCEMIA[ICD9: 251.2] Vikki MARTINEZ [facility] CPT-4: 91691 09/21/2011 ([id number]) OFFICE/OUTPATIENT VISIT EST Diagnosis: URINARY TRACT INFECTION[ICD9: 599.0] Vikki GUAMAN [facility] CPT-4: 02480 09/16/2011 ([id number]) OFFICE/OUTPATIENT VISIT EST Diagnosis: HYPERLIPIDEMIA NEC/NOS[ICD9: 272.4] Diagnosis: HYPERTENSION[ICD9: 401.9] Diagnosis: MALAISE AND FATIGUE[ICD9: 780.79] Diagnosis: DIZZINESS/VERTIGO[ICD9: 780.4] Vikki GUAMAN [facility] CPT-4: 64288 09/15/2011 ([id number]) OFFICE/OUTPATIENT VISIT EST Diagnosis: DIZZINESS/VERTIGO[ICD9: 780.4] Diagnosis: MALAISE AND FATIGUE[ICD9: 780.79] Diagnosis: HYPERTENSION[ICD9: 401.9] Vikki MARTINEZ [facility] CPT-4: 51502 09/13/2011 OFFICE/OUTPATIENT VISIT EST Diagnosis: LUMB/LUMBOSAC DISC DEGEN[ICD9: 722.52] Diagnosis: Radiculopathy of leg[ICD9: 724.4] Diagnosis: 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] Diagnosis: SPINAL ENTHESOPATHY[ICD9: 720.1] Vikki GUAMAN [facility] CPT-4: 42351 08/16/2011 ([id number]) OFFICE/OUTPATIENT VISIT EST Diagnosis: PAIN, LOWER BACK[ICD9: 724.2] Diagnosis: SPASM OF MUSCLE[ICD9: 728.85] Diagnosis: SCIATICA[ICD9: 724.3] Diagnosis: Lumbar degenerative disc disease[ICD9: 722.52] Vikki GUAMAN [facility] CPT-4: 47623 08/03/2011 ([id number]) OFFICE/OUTPATIENT VISIT EST Diagnosis: PAIN IN THORACIC SPINE[ICD9: 724.1] Diagnosis: SPASM OF MUSCLE[ICD9: 728.85] Vikki GUAMAN [facility] CPT-4: 44605 07/26/2011 ([id number]) OFFICE/OUTPATIENT VISIT EST Diagnosis: PAIN, LOWER BACK[ICD9: 724.2] Diagnosis: SPASM OF MUSCLE[ICD9: 728.85] Diagnosis: Sacroiliac dysfunction[ICD9: 739.4] Diagnosis: Lumbar degenerative disc disease[ICD9: 722.52] Vikki GUAMAN [facility] CPT-4: 37536 06/28/2011 OFFICE/OUTPATIENT VISIT EST Diagnosis: MALAISE AND FATIGUE[ICD9: 780.79] Diagnosis: HYPOTENSION[ICD9: 458.9] Diagnosis: CAD[ICD9: 414.00] Vikki GUAMAN [facility] CPT-4: 51223 03/31/2011 OFFICE/OUTPATIENT VISIT EST Diagnosis: SINUSITIS, ACUTE[ICD9: 461.9] Diagnosis: PHARYNGITIS, ACUTE[ICD9: 462] Diagnosis: CERUMEN IMPACTION[ICD9: 380.4] Vikki GUAMAN [facility] CPT-4: 07796 02/11/2011 OFFICE/OUTPATIENT VISIT EST Diagnosis: PAIN IN THORACIC SPINE[ICD9: 724.1] Diagnosis: GERD[ICD9: 530.81] Diagnosis: DIZZINESS/VERTIGO[ICD9: 780.4] Vikki GUAMAN [facility] CPT-4: 67372 10/15/2010 OFFICE/OUTPATIENT VISIT EST Vikki MARTINEZ [facility] CPT- 4: 10976 09/29/2010 ([id number]) OFFICE/OUTPATIENT VISIT EST Vikki [facility] CPT-4: 26721 07/02/2010 ([id number]) OFFICE/OUTPATIENT VISIT, EST Diagnosis: PAIN, LOWER BACK[ICD9: 724.2] Vikki PIKE [facility] CPT-4: 69103 04/06/2010 ([id number]) OFFICE/OUTPATIENT VISIT, EST Vikki [facility]ISOST[facility]O [facility] CPT-4: 26490 04/01/2010 ([id number]) OFFICE/OUTPATIENT VISIT, EST Vikki [facility] CPT-4: 60255 01/22/2010 ([id number]) OFFICE/OUTPATIENT VISIT, EST Vikki [facility] CPT-4: 07689 12/02/2009 ([id number]) OFFICE/OUTPATIENT VISIT, EST Vikki [facility] CPT-4: 51576 10/21/2009 ([id number]) OFFICE/OUTPATIENT VISIT, EST Vikki [facility] CPT-4: 33359 09/10/2009 ([id number]) OFFICE/OUTPATIENT VISIT, EST Vikki [facility] CPT-4: 18482 08/11/2009 ([id number]) OFFICE/OUTPATIENT VISIT, EST Vikki [facility] CPT-4: 28382 06/09/2009 Plan of Care Planned Activity Notes Codes Status Date Visit Diagnosis Plan: Generalized anxiety disorder Dis cussion: Stable ICD-9 : 300.00 ICD-10 : F41.1 04/03/2019 Visit Diagnosis Plan: Essential (primary) hypertension Discussion: Stable Follow Up: 1 months ICD-9 : 401.9 ICD-10 : I10 04/03/2019 Patient Education: metoprolol tartrate- [employer] [facility] [id number] [email or web address]/[email or web address] Completed 04/03/2019 Visit Diagnosis Plan: Essential (primary) hypertension Discussion: Improving with higher dose of metoprolol Recheck 2weeks ICD-9 : 401.9 ICD-10 : I10 03/20/2019 Visit Diagnosis Plan: Palpitations Discussion: Continu e higher dose of metoprolol ICD-9 : 785.1 ICD-10 : R00.2 03/20/2019 Appointment: Vikki Guamantel: [address] [place] [address] FOLLOW UP 03/20/2019 Appointment: Vikki Guamantel: [address] [place] [address] 03/13/2019--moved up to [facility] 03/13/19 at 4pm (km) [place] 03/15/2019 Visit Diagnosis Plan: Palpitations Discussion: Check C BC, CMP, TSH ICD-9 : 785.1 ICD-10 : R00.2 03/13/2019 Visit Diagnosis Plan: Essential hypertension Discussio n: Increase metoprolol to 25mg q AM and 50mg po q pM Recheck 1 week ICD-9 : 401.9 ICD-10 : I10 03/13/2019 Appointment: Vikki Guamantel: [address] [place] [address] BP CHECK 03/13/2019 Appointment: Vikki Guamantel: [address] [place] [address] ACUTE ILLNESS 03/13/2019 Patient Education: metoprolol tartrate- [employer] [facility] [id number] [email or web address].com/samplemd/resources/getResource/61/[email or web address] Completed 03/13/2019 Care Plan: X-RAY EXAM NECK SPINE 4/5VWS LOINC : 98128-0 Pending 03/13/2019 Care Plan: X-RAY EXAM THORAC SPINE4/>VW LOINC : 61144-6 Pending 03/13/2019 Appointment: Vikki Guamanl: [address] [place], [place] [phone] [place] LAB 01/23/2019 Appointment: Vikki Guaman WPtel: [address] [place], [place] [phone] [place] INJECTION 12/26/2018 Patient Education: INFLUENZA VACCINE CDC Completed 12/26/2018 Appointment: Vikki Guaman WPtel: [address] [place], [place] [phone] LAB 12/15/2018 Visit Diagnosis Plan: Acute serous [...] ICD-10 : H65.02 11/07/2018 Appointment: Jennifer Rosario [address] [place] [address] ACUTE ILLNESS 11/07/2018 Visit Diagnosis Plan: Urinary [...] : R53.83 08/14/2018 Appointment: Vikki Guaman WPtel: [address] [place] [address] FOLLOW UP 08/14/2018 Visit Diagnosis Plan: Essential [...] : K21.9 05/10/2018 Appointment: Vikki Guaman WPtel: [address] [place], [place] [phone] [place] FOLLOW UP 05/10/2018 Patient Education: metoprolol tartrate- [employer] [facility] [id number] [email or web address]/resources/[email or web address] Completed 05/10/2018 Appointment: Vikki Guaman WPtel: [address] [place], [place] [phone] [place] CANCELED 04/21/2018 Visit Diagnosis Plan: Gastro-esophageal reflux disease without esophagitis Discussion: Continue protonix and carafate Proceed with updated EGD ICD-9 : 530.81 ICD-10 : K21.9 02/14/2018 Visit Diagnosis Plan: Epigastric pain Discussion: [facility] CT abdomen/pelvis due to ongoing abdominal pain ICD-9 : 789.06 ICD-10 : R10.13 02/14/2018 Appointment: Vikki Guaman WPtel: [address] [place], [place] [id number] [place] FOLLOW UP 02/14/2018 Care Plan: CT PELVIS W/O DYE LOINC : 361 08-9 Pending 02/14/2018 Care Plan: CT ABDOMEN W/O DYE LOINC : 36 103-0 Pending 02/14/2018 Care Plan: Referral Order SNOMED-CT : 30 [id number] Pending 02/14/2018 Visit Diagnosis Plan: Atherosclerotic he art disease of [place] coronary artery without angina pectoris Discussion: S/P [...] 401.9 ICD-10 : I10 01/10/2018 Appointment: Vikki Guamantel: [address] [place], [place] [phone] FOLLOW UP 01/10/2018 Visit Diagnosis Plan: Gastro-esophageal [...] 785.1 ICD-10 : R00.2 12/06/2017 Appointment: Vikki Guamanl: [address] [place], [place] [id number] FOLLOW UP 12/06/2017 Patient Education: Patient Medication Summary Completed 12/06/2017 Appointment: Vikki Guamantel: [address] [place], [place] [phone] [place] LAB 11/30/2017 Patient Education: Patient Medication Summary [...] : F41.1 11/22/2017 Appointment: Vikki Guaman WPtel: [address] [place] [address] FOLLOW UP 11/22/2017 Patient Education: Patient Medication [...] : K21.9 10/20/2017 Appointment: Vikki Guaman WPtel: [address] [place] [address] ACUTE ILLNESS 10/20/2017 Patient Education: Patient Medication Summary Completed 10/20/2017 Visit Diagnosis Plan: Dizziness and giddiness Discussi on: blood work to be completed in office including cmp, cbc, troponin to rule out glucose intolerance, infection, dehydration. instructed patient that she needs to see her knitting machine operator automatic sooner than oct and patient requested we contact dr. brown's office. will have front office make appt. patient has carotid doppler annually. ICD-9 : 780.4 ICD-10 : R42 09/27/2017 Appointment: Jennifer Rosario [address] [place] [address] ACUTE ILLNESS 09/27/2017 Patient Education: Patient Medication Summary Completed 09/27/2017 Visit Diagnosis Plan: Cervicalgia Discussion: Complete course of PT since symptoms improved Continue stretching exercises Notify if symptoms return or worsen ICD-9 : 723.1 ICD-10 : M54.2 08/16/2017 Appointment: Vikki Guaman WPtel: [address] [place] [address] FOLLOW UP 08/16/2017 Patient Education: Patient Medication [...] : H81.43 07/07/2017 Appointment: Vikki Guaman WPtel: [facility] [address] 07/07/2017 Patient Education: Patient Medication Summary Completed 07/07/2017 Care Plan: MRI NECK SPINE W/O DYE LOINC : 85988-9 Pending 07/07/2017 Visit Diagnosis Plan: Otalgia, bilateral [...] ICD-10 : H81.13 05/30/2017 Appointment: Jennifer Rosario [address] [place] [address] ACUTE ILLNESS 05/30/2017 Patient Education: Patient Medication [...] : M54.17 04/18/2017 Appointment: Vikki Guaman WPtel: [address] [place], [place] [phone] ACUTE ILLNESS 04/18/2017 Patient Education: Patient Medication Summary Completed 04/18/2017 Appointment: Vikki Guaman WPtel: [address] [place], [place] [phone] [place] INJECTION 12/10/2016 Patient Education: Patient Medication Summary Completed 12/10/2016 Appointment: Vikki Guaman WPtel: [address] [place], [place] [phone] LAB 11/01/2016 Patient Education: Patient Medication Summary [...] : M51.36 10/25/2016 Appointment: Vikki Guaman WPtel: [id number] FOLLOW UP 10/25/2016 Patient Education: Patient Medication [...] : R10.32 09/20/2016 Appointment: Vikki Guaman WPtel: [address] [place] [phone] ACUTE ILLNESS 09/20/2016 Patient Education: Patient Medication Summary Completed 09/20/2016 Appointment: Vikki Guaman WPtel: [address] [place], [place] [phone] 05/13/2016 Patient Education: Patient Medication Summary [...] : N64.4 05/12/2016 Appointment: Vikki Guaman WPtel: [address] [place], [place] [phone] 3/7 confirmed `sl ACUTE ILLNESS 05/12/2016 Patient Education: Patient Medication Summary Completed 05/12/2016 Care Plan: MAMMOGRAM SCREENING LOINC : 2 6347-5 Pending 05/12/2016 Visit Diagnosis Plan: Acute upper respiratory infectio n, unspecified Discussion: Exam is reassuring Likely viral illness Supportive care reviewed and encouraged Follow up PRN ICD-9 : 465.9 ICD-10 : J06.9 03/18/2016 Appointment: Yue Moya [address] [place], [place] [phone] ACUTE ILLNESS 03/18/2016 Patient Education: Patient Medication Summary Completed 03/18/2016 Visit Plan: Supportive care. Rest, Fluid s, Tylenol/Motrin prn fever or bodyaches. Notify if worsening symptoms. 02/06/2016 Appointment: Vikki Guaman WPtel: [address] [place] [address] ACUTE ILLNESS 02/06/2016 Patient Education: Patient Medication Summary Completed 02/06/2016 Appointment: Vikki Guaman WPtel: [address] [place], [place] [phone] [place] INJECTION 12/12/2015 Patient Education: Patient Medication Summary Completed 12/12/2015 Appointment: Vikki Guaman WPtel: [address] [place], [place] [phone] [place] LAB 11/25/2015 Patient Education: Patient Medication Summary Completed 11/25/2015 Visit Plan: Add miralax daily Use daily probiotic and metamucil and push fluids Notify if worsens/persists 08/26/2015 Appointment: Vikki Guaman WPtel: [address] [place] [address] 08/25/15 confirmed ~sl ACUTE ILLNESS 08/26/2015 Patient Education: Patient Medication Summary Completed 08/26/2015 Visit Plan: No NSAIDs Kidney function di scussed Discussed hydration Monitor lab every 4months so will check CMP, HbA1C next month 05/21/2015 Appointment: Vikki Guaman WPtel: [address] [place] [address] 05/19 confirmed ~sl ACUTE ILLNESS 05/21/2015 Patient Education: Patient Medication Summary Completed 05/21/2015 Visit Plan: Vestibular exercises Refill flonase Strict low Na diet--discussed that needs to read labels Rx for walker with chair given due to muscle weakness/unsteadiness Has carotids and abdominal aorta and legs checked in March Check Chem 7 02/19/2015 Appointment: Vikki Guaman WPtel: [address] [place] [address] 02/18/15 appt confirmed cn FOLLOW UP 02/19 Patient Education: Patient Medication Summary Completed 02/19/2015 Patient Education: Vertigo Completed 1 04/22/2014 Appointment: Vikki Guaman WPtel: [address] [place], [place] [phone] [place] INJECTION 12/20/2014 Patient Education: Patient Medication Summary Completed 12/20/2014 Appointment: Vikki Guaman WPtel: [address] [place], [place] [phone] [place] UA 11/19/2014 Patient Education: Patient Medication Summary Completed 11/19/2014 Referral: Edy Cheek WPtel: #1 [facility] Ronny Hoyt [id number] US Referral Completed 11/18/2014 Appointment: Vikki Guaman WPtel: [address] [place] [address] LAB 11/14/2014 Patient Education: Patient Medication Summary Completed 11/14/2014 Visit Plan: Check CMP, CBC, TSH, Free T4 , B12, Lipids, HbA1C Discussed 6 small meals a day each with protein Would likely benefit from antidepressant Update colonoscopy 11/13/2014 Appointment: Vikki Guaman WPtel: [address] [place] [address] 11/12/14 confirmed ACUTE ILLNESS 11/13/2014 Patient Education: Patient Medication Summary Completed 11/13/2014 Visit Plan: Cerumen flush with warm wate r and peroxide - good results Resume Nasonex nasal spray daily Recommended Debrox earwax removal drops 09/27/2014 Appointment: Jessenia Francis WPtel: [address] [place] [address] ACUTE ILLNESS 09/27/2014 Patient Education: Patient Medication Summary Completed 09/27/2014 Visit Plan: Continue aspirin daily Add m eloxicam for 1week Elevate and Ice Call on Tuesday07/11/2014 Appointment: Vikki Guaman WPtel: [address] [place] [address] ACUTE ILLNESS 07/11/2014 Patient Education: Patient Medication Summary Completed 07/11/2014 Visit Plan: Been using baclofen at [facility] and has helped some PT for next 2-4weeks 05/23/2014 Appointment: Vikki Guaman WPtel: [address] [place] [phone] [place] [address] Follow Up 05/23/2014 Patient Education: Patient Medication Summary Completed 05/23/2014 Appointment: Vikki Guaman WPtel: [address] [place], [place] [phone] LAB 05/10/2014 Appointment: Vikki Guaman WPtel: [address] [place], [place] [phone] feeling better, weather - FOLLOW UP 04/07 Referral: Edy Cheek WPtel: #1 [facility] Walker Antwan Borges [id number] [place] Referral Appointment Requested 04/03/2014 Visit Plan: Continue exercise and curren t meds See surgery for removal of right arm lesion 03/20/2014 Appointment: Vikki Guaman WPtel: [address] [place], [place] [phone] FOLLOW UP 03/20/2014 Patient Education: Patient Medication Summary Completed 03/20/2014 Appointment: Vikki Guaman WPtel: [address] [place], [place] [phone] INJECTION 12/21/2013 Patient Education: Patient Medication Summary Completed 12/21/2013 Appointment: Jessenia Francis WPtel: [address] [place], [place] [phone] ACUTE ILLNESS 10/17/2013 Patient Education: Patient Medication Summary Completed 10/17/2013 Visit Plan: Discussed that likely lumbar etiology for leg weakness Will change amlodopine to low dose dyazide and see if helps legs and inner ear 09/24/2013 Appointment: Vikki Guaman WPtel: [address] [place], [place] [id number] FOLLOW UP 09/24/2013 Patient Education: Patient Medication Summary Completed 09/24/2013 Visit Plan: Ceftin and continue claritin /flonase Decrease amlodopine to 2.5mg q HS until fwup with Card due to weakness 05/31/2013 Appointment: Vikki Guaman WPtel: [address] [place] [address] ACUTE ILLNESS 05/31/2013 Patient Education: Patient Medication Summary Completed 05/31/2013 Appointment: Vikki Guaman WPtel: [address] [place] [address] LAB 03/28/2013 Patient Education: Patient Medication Summary Completed 03/28/2013 Appointment: Jessenia Francis WPtel: [address] [place] [address] ACUTE ILLNESS 03/26/2013 Patient Education: Patient Medication Summary Completed 03/26/2013 Visit Plan: Supportive care. Rest, Fluid s, Tylenol prn fever or bodyaches. Notify if worsening symptoms. Ceftin 12/19/2012 Appointment: Jessenia Francis WPtel: [address] [place] [address] ACUTE ILLNESS 12/19/2012 Patient Education: Patient Medication Summary Completed 12/19/2012 Appointment: Vikki Guaman WPtel: [address] [place] [address] BP CHECK 12/04/2012 Patient Education: Patient Medication Summary Completed 12/04/2012 Appointment: Vikki Guaman WPtel: [address] [place] [address] ER Follow UP 11/27/2012 Patient Education: Patient Medication Summary Completed 11/27/2012 Visit Plan: Restart flonase BID Use mecl izine 25mg q HS Vestibular exercises Claritin 10mg q AM See ENT if doesn't resolve 10/04/2012 Appointment: Vikki Guaman WPtel: [address] [place] [address] ACUTE ILLNESS 10/04/2012 Patient Education: Patient Medication Summary Completed 10/04/2012 Visit Plan: Will continue to observe 07/27/2012 Appointment: Vikki Guaman WPtel: [address] [place] [address] FOLLOW UP 07/27/2012 Patient Education: Patient Medication [...] ear recheck. 07/14/2012 Appointment: Evelyn Santos WPtel: [address] [place] [address] ACUTE ILLNESS 07/14/2012 Patient Education: Patient Medication Summary Completed 07/14/2012 Visit Plan: Decrease caffeine intake Kristin ck Bilateral Mammogram with US of left breast 06/08/2012 Appointment: Vikki Guaman WPtel: [address] [place] [address] ACUTE ILLNESS 06/08/2012 Patient Education: Patient Medication Summary Completed 06/08/2012 Appointment: Alisia Campbell WPtel: [address] [place] [address] appt scheduled 04/06 ACUTE ILLNESS 04/10/2012 Appointment: Vikki Guaman WPtel: [address] [place] [address] US LAB 02/23/2012 Patient Education: Patient Medication Summary Completed 02/23/2012 Visit Plan: Continue off carafate and se e how does Continue probiotic Add Vestibular exercises and use meclizine prn Continue Nasonex Check fasting lab including CMP, Lipids, CBC, TSH, Free T4, HbA1C 02/22/2012 Appointment: Vikki Guaman WPtel: [address] [place] [address] FOLLOW UP 02/22/2012 Patient Education: Patient Medication Summary Completed 02/22/2012 Visit Plan: Continue carafate for 4more weeks at current dose then decrease to BID for 2wks then q HS 12/28/2011 Appointment: Vikki Guamantel: [address] [place] [address] FOLLOW UP 12/28/2011 Patient Education: Patient Medication Summary Completed 12/28/2011 Visit Plan: Continue omeprazole Add Judi fate 1gm po q AC Add daily probiotic 12/15/2011 Appointment: Vikki Guaman WPtel: [address] [place] [address] ACUTE ILLNESS 12/15/2011 Patient Education: Patient Medication Summary Completed 12/15/2011 Appointment: Vikki Guamantel: [address] [place] [address] US INJECTION 12/02/2011 Patient Education: Patient Medication Summary Completed 12/02/2011 Visit Plan: Diabetic Diet Accuchecks BID alternating times Hold onglyza and Januvia for now and continue diet and exercise and weight loss and moniter BS Discussed hypoglycemia and snack of peanut butter and crackers with juice or milk 09/21/2011 Appointment: Vikki Guamantel: [address] [place] [address] WORK IN 09/21/2011 Patient Education: Patient Medication Summary Completed 09/21/2011 Appointment: Vikki Guamantel: [address] [place], [place] [id number] 09/16/2011 Patient Education: Patient Medication Summary Completed 09/16/2011 Appointment: Vikki Guamantel: [address] [place], [place] [id number] LAB 09/15/2011 Patient Education: Patient Medication Summary Completed 09/15/2011 Appointment: Vkiki Guamantel: [address] [place], [place] [id number] ACUTE ILLNESS 09/13/2011 Patient Education: Patient Medication Summary Completed 09/13/2011 Visit Plan: Injection to Right SI joint as above Pt will call in 3 days on pain Has PT starting in 2wks. 08/16/2011 Appointment: Vikki Guamantel: [address] [place] [address] ACUTE ILLNESS 08/16/2011 Patient Education: Patient Medication Summary Completed 08/16/2011 Visit Plan: OMT done Start PT May need u pdated MRI if need to consider epidural Prednisone 08/03/2011 Appointment: Vikki Guaman WPtel: [address] [place] [address] OMT 08/03/2011 Patient Education: Patient Medication Summary Completed 08/03/2011 Visit Plan: Flexeril and Vimovo OMT done Daily stretches 07/26/2011 Appointment: Vikki Guaman WPtel: [address] [place] [address] ACUTE ILLNESS 07/26/2011 Patient Education: Patient Medication Summary Completed 07/26/2011 Visit Plan: OMT done Daily stretches Roque st heat or biofreeze Right SI joint injection Call in 1week Vimovo BID 06/28/2011 Appointment: Vikki Guamantel: [address] [place] [address] ACUTE ILLNESS 06/28/2011 Patient Education: Patient Medication Summary Completed 06/28/2011 Appointment: Vikki Guamantel: [address] [place] [address] US LAB 04/01/2011 Patient Education: Patient Medication Summary Completed 04/01/2011 Visit Plan: Decrease amlodopine to 1.25m g daily Schedule with Cardiology Fasting lab in AM 03/31/2011 Appointment: Vikki Guamantel: [address] [place] [address] ACUTE ILLNESS 03/31/2011 Patient Education: Patient Medication Summary Completed 03/31/2011 Visit Plan: Saline nasal flushes prn. Ty lenol/Motrin prn headache. Notify if persists/symptoms worsening. Cerumen removal from ears as above 02/11/2011 Appointment: Vikki Guaman WPtel: [address] [place] [address] ACUTE ILLNESS 02/11/2011 Patient Education: Patient Medication Summary Completed 02/11/2011 Appointment: Vikki Guaman WPtel: [address] [place] [address] US INJECTION 12/09/2010 Patient Education: Patient Medication Summary Completed 12/09/2010 Visit Plan: Continue vimovo for 1more we ek Increase Omeprazole to BID for 1mo then resume QD if stomach improved Vestibular exercises with meclizine q HS for next week 10/15/2010 Appointment: Vikki Guaman WPtel: [address] [place] [address] FOLLOW UP 10/15/2010 Patient Education: Patient Medication Summary Completed 10/15/2010 Appointment: Vikki Guaman WPtel: [address] [place] [address] ACUTE ILLNESS 09/29/2010 Patient Education: Patient Medication Summary Completed 09/29/2010 Appointment: Vikki Guaman WPtel: [address] [place] [address] LAB 07/06/2010 Patient Education: Patient Medication Summary Completed 07/06/2010 Visit Plan: Saline nasal flushes prn. Ty lenol/Motrin prn headache. Notify if persists/symptoms worsening. Add Veramyst Increase Omeprazole to 20mg po BID 07/02/2010 Appointment: Vikki Guaman WPtel: [address] [place] [address] ACUTE ILLNESS 07/02/2010 Patient Education: Patient Medication Summary Completed 07/02/2010 Appointment: Vikki Guaman WPtel: [address] [place] [address] FOLLOW UP 04/06/2010 Patient Education: Patient Medication Summary Completed 04/06/2010 Appointment: Vikki Guaman WPtel: [address] [place] [address] ACUTE ILLNESS 04/01/2010 Patient Education: Patient Medication Summary Completed 04/01/2010 Visit Plan: Nasocourt sample given. Pt. will notify if symptoms are worse on Tuesday. 01/22/2010 Appointment: Alisia Campbell WPtel: [address] [place] [address] ACUTE ILLNESS 01/22/2010 Patient Education: Patient Medication Summary Completed 01/22/2010 Appointment: Vikki Guaman WPtel: [address] [place] [address] US INJECTION 12/10/2009 Patient Education: Patient Medication Summary Completed 12/10/2009 Appointment: Vikki Guaman WPtel: [address] [place] [address] FOLLOW UP 12/02/2009 Patient Education: Patient Medication Summary Completed 12/02/2009 Patient Education: Lexapro Completed 0 12/02/2009 Visit Plan: May proceed with hiatal ryan ia repair per Card. so will contact Dr. Mariscal's office to proceed with surgery Trial of Lexapro 5mg QD plus use xanax prn 10/21/2009 Appointment: Vikki Guaman WPtel: [address] [place] [address] FOLLOW UP 10/21/2009 Patient Education: Patient Medication Summary Completed 10/21/2009 Visit Plan: B12 given Cont oral B12 and iron Fwup 1mo for B12 Proceed with hiatal hernia repair once card clearance 09/10/2009 Appointment: Vikki Guaman WPtel: [address] [place] [address] FOLLOW UP 09/10/2009 Patient Education: Patient Medication Summary Completed 09/10/2009 Appointment: Vikki Guaman WPtel: [address] [place] [address] FOLLOW UP 08/11/2009 Patient Education: Patient Medication Summary Completed 08/11/2009 Appointment: Vikki Guaman WPtel: [phone] [id number] US LAB 06/10/2009 Patient Education: Patient Medication Summary Completed 06/10/2009 Visit Plan: Check fasting lab in AM--CMP ,Lipids, CBC, Vit D, TSH,FreeT4, B12 06/09/2009 Appointment: Vik[facility]el[facility] [phone] [id number] FOLLOW UP 06/09/2009 Patient Education: Patient Medication Summary Completed 06/09/2009 Referral: Edy Cheek WPtel: [address] [facility] Referral Appointment Requested Referral: Edy Cheek WPtel: [address] [id number] Referral Initiated Instructions Comment . Supportive care. [...]
--- OUTSIDE RECORDS SUMMARY | 2019-04-25 20:18 | XMS REPORT | CCD ---
Author Author Evelyne Guaman D.O. Organization [facility] Address [address] [place] [address] Phone Care Team Providers Care Neon Sign Maker Name Role Phone Vikki Guaman D.O. PP Unavailable CCM Unavailable Summary Purpose Interface Exchange Insurance Providers Payer name Policy type / Coverage type Covered democrat ID Effective Begin Date Effective End Date WPS MEDICARE PART B [place] Medicare Part B [id number] Unknown Aetna [facility] Medicare Part B [id number] Unknown Family history Father Diagnosis Age At Onset Heart disease Unknown Mother Diagnosis Age At Onset Heart disease Unknown Cancer Unknown Social History Social History Element Codes Description Effective Dates Tobacco history SNOMED CT: 550228052 Never smoker 09/29/2010 Marital status Unknown Single [...] R10.13 11/22/2017 Active 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: [...] Instructions metoprolol tartrate 25 mg tablet RxNorm: 912754 1 Table t(s) Oral QAM and two tablets (50mg) in the evening--clarification/dose change 04/03/2019 Active Flonase Allergy Relief 50 mcg/actuation nasal spray,suspensi on RxNorm: 8151896 2 [place] Nasal every night at bedtime 03/30/2019 03/30/2019 Inactive simvastatin 40 mg tablet RxNorm: 919916 1 Tablet(s) Oral QD 020 12/24/2019 Active omeprazole 40 mg capsule,delayed release RxNorm: 596569 1 Capsu le(s) Oral QD 03/30/2019 12/24/2019 Active isosorbide mononitrate ER 30 mg tablet,extended release 24 h r RxNorm: 465745 1 Tablet(s) Oral every night at bedtime 03/30/2019 12/25/2019 Active metoprolol tartrate 25 mg tablet RxNorm: 837189 1 Table t(s) Oral QAM and two tablets (50mg) in the evening 03/30/2019 04/02/2019 Inactive omeprazole 40 mg capsule,delayed release RxNorm: 846338 1 Capsu le(s) Oral QD 03/27/2019 03/29/2019 Inactive Xanax 0.25 mg tablet RxNorm: 243524 TAKE 1 TABLET BY [facility] TWICE DAILY 1 Tablet(s) Oral two times a day as needed as needed for anxiety 03/27/2019 03/27/2019 Inactive simvastatin 40 mg tablet RxNorm: 298957 1 Tablet(s) Oral QD 020 03/29/2019 Inactive metoprolol tartrate 25 mg tablet RxNorm: 615828 1 Table t(s) Oral QAM and two tablets (50mg) in the evening 03/27/2019 03/29/2019 Inactive metoprolol tartrate 25 mg tablet RxNorm: 685209 1 Table t(s) Oral QAM and two tablets (50mg) in the evening 03/20/2019 03/26/2019 Inactive Flonase Allergy Relief 50 mcg/actuation nasal spray,suspensi on RxNorm: 1467177 2 [place] Nasal every night at bedtime 03/13/2019 03/13/2019 Inactive simvastatin 40 mg tablet RxNorm: 508866 1 Tablet(s) PO QD 01/22/2019 03/26/2019 Inactive omeprazole 40 mg capsule,delayed release RxNorm: 307157 1 Capsu le(s) Oral QD 01/10/2019 03/26/2019 Inactive Xanax 0.25 mg tablet RxNorm: 512559 TAKE 1 TABLET BY MOUTH TWIC E DAILY 01/02/2019 03/26/2019 Inactive omeprazole 40 mg capsule,delayed release RxNorm: 513591 1 Capsu le(s) PO QD 12/11/2018 01/09/2019 Inactive metoprolol tartrate 25 mg tablet RxNorm: 114590 1 Tablet(s) PO BID 11/20/2018 03/19/2019 Inactive omeprazole 40 mg capsule,delayed release RxNorm: 979900 1 Capsu le(s) PO QD 11/13/2018 12/10/2018 Inactive Flonase Allergy Relief 50 mcg/actuation nasal spray,suspensi on RxNorm: 8813417 2 [place] NASAL QHS 11/07/2018 03/12/2019 Inactive simvastatin 40 mg tablet RxNorm: 338420 1 Tablet(s) PO QD 10/23/2018 01/20/2019 Inactive simvastatin 40 mg tablet RxNorm: 522223 1 Tablet(s) PO QD 07/24/2018 10/21/2018 Inactive omeprazole 40 mg capsule,delayed release RxNorm: 455637 1 Capsu le(s) PO QD 07/13/2018 11/09/2018 Inactive simvastatin 40 mg tablet RxNorm: 185185 1 Tablet(s) PO QD 06/13/2018 07/12/2018 Inactive omeprazole 40 mg capsule,delayed release RxNorm: 080892 1 Capsu le(s) PO QD 06/13/2018 07/12/2018 Inactive Bactrim DS 800 mg-160 mg tablet RxNorm: 664856 1 Tablet(s) PO BID 0 05/12/2018 05/18/2018 Inactive Bactrim DS 800 mg-160 mg tablet RxNorm: 512397 1 Tablet(s) PO BID 0 05/12/2018 05/11/2018 Inactive Macrobid 100 mg capsule RxNorm: 228949 1 Capsule(s) PO BID 05/11/1905/16/2018 Inactive metoprolol tartrate 25 mg tablet RxNorm: 087107 1 Tablet(s) PO BID 05/10/2018 11/05/2018 Inactive Xanax 0.25 mg tablet RxNorm: 195639 TAKE 1 TABLET BY MOUTH TWIC E DAILY 02/16/2018 01/01/2019 Inactive Xanax 0.25 mg tablet RxNorm: 834865 1 Tablet(s) PO BID 02/14/2018 Inactive Protonix 40 mg tablet,delayed release RxNorm: 636191 1 Tablet(s) PO BID for stomach--replaces omeprazole 01/10/2018 05/09/2018 Inactive Carafate 1 gram tablet RxNorm: 333282 1 Tablet(s) PO AC & HS 201705/09/2018 Inactive Xanax 0.25 mg tablet RxNorm: 713170 1 Tablet(s) PO BID 01/03/201812/2017 Inactive Bactrim DS 800 mg-160 mg tablet RxNorm: 580501 1 Tablet(s) PO BID 1 12/12/2017 Inactive Bactrim DS 800 mg-160 mg tablet RxNorm: 999997 1 Tablet(s) PO BID 1 12/07/2017 Inactive Carafate 1 gram tablet RxNorm: 133535 1 Tablet(s) PO AC & HS 201712/21/2017 Inactive Protonix 40 mg tablet,delayed release RxNorm: 526167 1 Tablet(s) PO BID for stomach--replaces omeprazole 11/22/2017 01/09/2018 Inactive Protonix 40 mg tablet,delayed release RxNorm: 808902 1 Tablet(s) PO BID for stomach--replaces omeprazole 10/20/2017 11/21/2017 Inactive fluticasone 50 mcg/actuation nasal spray,suspension RxNorm: 2191311 2 [place] NASAL QD to each nostril 07/07/2017 08/13/2018 Inactive Nasonex 50 mcg/actuation [place] RxNorm: 5070116 2 [place] NASAL 201707/07/2017 Inactive omeprazole 40 mg capsule,delayed release RxNorm: 128157 1 Capsu le(s) PO QD 04/18/2017 10/19/2017 Inactive simvastatin 40 mg tablet RxNorm: 613504 1 Tablet(s) PO QD TAKE 1 TABLET EVERY DAY 04/18/2017 04/12/2018 Inactive metoprolol tartrate 25 mg tablet RxNorm: 843528 1/2 Tablet(s) PO QD 04/18/2017 01/09/2018 Inactive simvastatin 40 mg tablet RxNorm: 810653 Tablet(s) TAKE 1 TABLET EVERY DAY 10/27/2016 04/17/2017 Inactive metoprolol tartrate 25 mg tablet RxNorm: 739907 1/2 Tablet(s) PO QD 09/20/2016 03/18/2017 Inactive Flonase 50 mcg/actuation nasal spray,suspension RxNorm: 1797 933 2 [place] NASAL BID 09/20/2016 04/17/2017 Inactive omeprazole 40 mg capsule,delayed release RxNorm: 846125 1 Capsu le(s) PO QD 09/08/2016 04/17/2017 Inactive metoprolol tartrate 25 mg tablet RxNorm: 982258 1/2 Tablet(s) PO QD 06/14/2016 09/19/2016 Inactive ciprofloxacin 0.2 % ear drops in a dropperette RxNorm: 75845 6 4 Drop(s) OTIC TID for 1 week 02/06/2016 05/11/2016 Inactive cefdinir 300 mg capsule RxNorm: 892729 2 Capsule(s) PO QD 02/06/2016 02/15/2016 Inactive omeprazole 40 mg capsule,delayed release RxNorm: 786911 TAKE 1 CAPSULE EVERY DAY 11/06/2015 09/08/2016 Inactive simvastatin 40 mg tablet RxNorm: 037232 TAKE 1 TABLET EVERY DAY 05/201510/27/2016 Inactive Flonase 50 mcg/actuation nasal spray,suspension RxNorm: 1797 933 2 [place] NASAL BID 02/19/2015 09/19/2016 Inactive cefuroxime axetil 250 mg tablet RxNorm: 350758 1 Tablet(s) PO BID 0 11/21/2014 11/20/2014 Inactive cefuroxime axetil 250 mg tablet RxNorm: 460720 1 Tablet(s) PO BID 0 11/21/2014 11/27/2014 Inactive omeprazole 40 mg capsule,delayed release RxNorm: 512630 1 Capsu le(s) PO QD 10/09/2014 01/05/2015 Inactive meloxicam 7.5 mg tablet RxNorm: 455973 1 Tablet(s) PO QD 07/11/2014 0 08/09/2014 Inactive loratadine 10 mg tablet RxNorm: 435783 1 Tablet(s) PO QAM for a llergies 10/17/2013 08/13/2018 Inactive Flonase 50 mcg/actuation nasal spray,suspension RxNorm: 8963 23 2 [place] NASAL BID 10/17/2013 02/18/2015 Inactive prednisone 20 mg tablet RxNorm: 869621 2 Tablet(s) PO BID 10/17/2013 10/21/2013 Inactive Dyazide 37.5 mg-25 mg capsule RxNorm: 995556 1 Capsule(s) PO QAM 10/16/2013 Inactive Ceftin 500 mg tablet RxNorm: 198336 1 Tablet(s) PO BID 05/31/201307/2013 Inactive Ceftin 500 mg tablet RxNorm: 447466 1 Tablet(s) PO BID 03/26/2013 Inactive simvastatin 40 mg tablet RxNorm: 120173 Tablet(s) PO TA KE ONE TABLET BY MOUTH EVERY DAY 03/26/2013 10/07/2015 Inactive metoprolol tartrate 25 mg tablet RxNorm: 169057 Tablet( s) PO TAKE ONE-HALF TABLET BY MOUTH EVERY DAY 03/26/2013 11/12/2014 Inactive Ceftin 500 mg tablet RxNorm: 623474 1 Tablet(s) PO BID 12/19/2012 Inactive loratadine 10 mg tablet RxNorm: 969318 1 Tablet(s) PO QAM for a llergies 10/04/2012 12/02/2012 Inactive omeprazole 20 mg capsule,delayed release RxNorm: 688207 Capsule(s) PO TAKE ONE CAPSULE BY MOUTH TWICE DAILY 08/09/2012 10/08/2014 Inactive omeprazole 20 mg capsule,delayed release RxNorm: 189269 1 Capsu le(s) PO BID 08/09/2012 05/09/2018 Inactive Augmentin 875 mg-125 mg tablet RxNorm: 244977 1 Tablet(s) PO Q12H 0 07/14/2012 07/23/2012 Inactive Floxin Otic Drops 1 bottle Drops RxNorm: 5 Drop(s) OTIC BID 07/20/2012 Inactive metoprolol tartrate 25 mg tablet RxNorm: 503100 Tablet( s) PO TAKE ONE-HALF TABLET BY MOUTH EVERY DAY 04/11/2012 03/25/2013 Inactive simvastatin 40 mg tablet RxNorm: 671368 Tablet(s) PO TA KE ONE TABLET BY MOUTH EVERY DAY 04/11/2012 03/25/2013 Inactive lancets RxNorm: Misc Miscellaneous USE ONE TO CH JEFFERY GLUCOSE EVERY DAY 04/04/2012 05/09/2018 Inactive Carafate 1 gram tablet RxNorm: 873668 1 Tablet(s) PO AC & HS 201111/12/2014 Inactive Flagyl 500 mg tablet RxNorm: 034546 1 Tablet(s) PO TID 12/15/2011 Inactive Carafate 1 gram tablet RxNorm: 682540 1 Tablet(s) PO AC & HS 201102/12/2012 Inactive One Touch Test strips RxNorm: Miscellaneous QD 09/21/2011 05/09/2018 Inactive one touch ultra mini test strips Protonix 40 mg Tab RxNorm: 720465 1 Tablet(s) PO QD 09/13/20112011 Inactive Protonix 40 mg Tab RxNorm: 179265 1 Tablet(s) PO QD 09/13/20112011 Inactive prednisone 20 mg Tab RxNorm: 644105 1 Tablet(s) PO BID 08/03/201106/2011 Inactive Flexeril 5 mg Tab RxNorm: 660389 1 Tablet(s) PO QHS for spasm 07/2508/24/2011 Inactive Flexeril 5 mg Tab RxNorm: 610064 1 Tablet(s) PO QHS for spasm 06/2707/25/2011 Inactive amlodipine 2.5 mg Tab RxNorm: 306596 1/2 Tablet(s) PO QD replac es 5mg dose 03/31/2011 06/27/2011 Inactive simvastatin 40 mg tablet RxNorm: 831063 1 Tablet(s) PO QD 03/31/2011 03/24/2012 Inactive metoprolol tartrate 25 mg tablet RxNorm: 201987 1/2 Tablet(s) PO QD 03/31/2011 03/24/2012 Inactive omeprazole 20 mg capsule,delayed release RxNorm: 523617 1 Capsu le(s) PO BID 03/31/2011 09/12/2011 Inactive cefdinir 300 mg Cap RxNorm: 331134 2 Capsule(s) PO QD 02/11/201102/04 Inactive simvastatin 40 mg Tab RxNorm: 342498 1 Tablet(s) PO QD 02/01/2011 Inactive metoprolol tartrate 25 mg Tab RxNorm: 473075 1/2 Tablet(s) PO QD 03/30/2011 Inactive metoprolol tartrate 25 mg Tab RxNorm: 879756 1/2 Tablet(s) PO QD 12/28/2010 Inactive meclizine 25 mg Tab RxNorm: 0867255 1 Tablet(s) PO QHS 10/15/201011/2010 Inactive for dizziness Ceftin 500 mg Tab RxNorm: 000608 1 Tablet(s) PO BID 07/02/20102010 Inactive omeprazole 20 mg Cap, Delayed Release RxNorm: 583581 1 Capsule( s) PO BID 07/02/2010 12/28/2010 Inactive simvastatin 40 mg Tab RxNorm: 196175 1 Tablet(s) PO QD 06/30/201007/2018 Inactive simvastatin 40 mg Tab RxNorm: 013057 1 Tablet(s) PO QD 06/30/2010 Inactive simvastatin 40 mg Tab RxNorm: 379958 1 Tablet(s) PO QD 02/25/2010 Inactive Tessalon Perles 100 mg Cap RxNorm: 229138 1 Capsule(s) PO Q6-8H 01/28/2010 Inactive cefdinir 300 mg Cap RxNorm: 185903 1 Capsule(s) PO BID 01/22/2010 Inactive Lexapro 10 mg Tab RxNorm: 045619 1 Tablet(s) PO QD 12/02/2009 010 Inactive Cipro 250 mg Tab RxNorm: 434576 1 Tablet(s) PO BID 12/02/2009 010 Inactive Wellbutrin XL 150 mg 24 hr Tab RxNorm: 620245 1 Tablet(s) PO QAM 08/07/2009 Inactive Fish Oil 1,000 mg Cap RxNorm: 1 Capsule(s) PO QD No Start Date Active Tylenol Extra Strength 500 mg tablet RxNorm: 542596 1/2 Tablet( s) PO as needed No Start Date Active nitroglycerin 0.4 mg sublingual tablet RxNorm: 674617 Tablet(s) SL as needed No Start Date Active Calcium with Vitamin D 600 mg (1,500 mg)-400 unit tablet RxN orm: 652560 1 Tablet(s) PO QD No Start Date Active Multivitamin & Mineral Formula Tab RxNorm: 1 Tablet(s) PO QD No St art Date Active vitamin B complex capsule RxNorm: 1 Capsule(s) PO QD No Start Date Active Aspirin 81 mg Tab RxNorm: 486660 1 Tablet(s) PO QD No Start Date Active Vitamin D 1,000 unit Cap RxNorm: 977589 1 Capsule(s) PO QD No Start D ate Active Co Q-10 oral RxNorm: 89295 oral No Start Date Active metoprolol tartrate 25 mg Tab RxNorm: 564155 1/2 Tablet(s) PO QD No Start Date 12/27/2010 Inactive Nasonex 50 mcg/actuation [place] RxNorm: 3758628 2 [place] NASAL No Sta rt Date 07/06/2017 Inactive Vitamin B12 1000mcg Tablet RxNorm: 1 Tablet(s) PO QD No Start Date 11/12/2014 Inactive amlodipine 5 mg Tab RxNorm: 534742 1 Tablet(s) PO QD No Start Date Inactive simvastatin 40 mg tablet RxNorm: 666142 1 Tablet(s) PO QD No Start Date 06/12/2018 Inactive omeprazole 20 mg capsule,delayed release RxNorm: 489136 1 Capsu le(s) PO BID No Start Date 08/08/2012 Inactive omeprazole 40 mg capsule,delayed release RxNorm: 959970 1 Capsu le(s) PO QD No Start Date 06/12/2018 Inactive Nexium 40 mg Cap RxNorm: 604334 1 Capsule(s) PO QD No Start Date 01/05 Inactive Stool Softener 100 mg Tab RxNorm: 6691966 2 Tablet(s) PO BID No Sta rt Date 03/30/2011 Inactive Calcium with Vitamin D 600 mg (1,500 mg)-400 unit Tab RxNorm : 522821 1 Tablet(s) PO QD No Start Date 11/12/2014 Inactive iron 325 mg (65 mg iron) Tab RxNorm: 816571 1 Tablet(s) PO QD No St art Date 11/12/2014 Inactive Flonase 50 mcg/actuation Nasal [place] RxNorm: 312858 2 [place] DEMOND AL BID No Start Date 10/16/2013 Inactive fluticasone 50 mcg/actuation nasal spray,suspension RxNorm: 6050564 2 [place] NASAL QD to each nostril No Start Date 07/06/2017 Inactive Nasonex 50 mcg/actuation [place] RxNorm: 3576367 2 [place] NASAL QD No Start Date 07/06/2017 Inactive hydralazine 50 mg tablet RxNorm: 037937 1 Tablet(s) PO as needed for BP over 160/90 No Start Date 11/21/2017 Inactive Vimovo 500 mg-20 mg 12 hr Tab RxNorm: 006420 1 Tablet(s) PO BID No Start Date 02/10/2011 Inactive Tylenol PM 25 mg-500 mg/15 mL Oral Soln RxNorm: 4223684 1 PO QPM No Start Date 11/12/2014 Inactive Iron (Ferrous Sulfate) Oral RxNorm: Oral No Start Date 03/30/19 12 Inactive Reglan 10 mg Tab RxNorm: 709474 1 Tablet(s) PO TID before meals No Start Date 02/10/2011 Inactive Xanax 1 mg Tab RxNorm: 204985 1/2 Tablet(s) PO QD No Start Date 11/21 Inactive amlodipine 10 mg tablet RxNorm: 077480 1 Tablet(s) PO QD No Start D ate 09/23/2013 Inactive Iron (dried) Oral RxNorm: Oral No Start Date 03/30/2011 Inactiv e metoprolol tartrate 50 mg tablet RxNorm: 867427 1 Tablet(s) PO BID No Start Date 02/13/2018 Inactive Xanax 0.25 mg tablet RxNorm: 436734 1 Tablet(s) PO BID No Start Date 01/02/2018 Inactive lancets RxNorm: Miscellaneous check blood sugar at least once daily No Start Date 04/03/2012 Inactive simvastatin 40 mg Tab RxNorm: 944376 1 Tablet(s) PO QD No Start Date 02/24/2010 Inactive isosorbide mononitrate ER 30 mg tablet,extended release 24 h r RxNorm: 975719 1 Tablet(s) PO QHS No Start Date 08/13/2018 Inactive amlodipine 2.5 mg tablet RxNorm: 272590 1 Tablet(s) PO QD No Start Date 09/23/2013 Inactive isosorbide mononitrate ER 30 mg tablet,extended release 24 h r RxNorm: 250235 1 Tablet(s) PO QHS No Start Date 03/29/2019 Inactive sucralfate 1 gram tablet RxNorm: 705194 1 Tablet(s) PO QID No Start Date 05/09/2018 Inactive Fish Oil Oral RxNorm: Oral No Start Date 03/31/2011 Inactive Multiple Vitamin Oral RxNorm: Oral No Start Date 03/31/2011 Franny ctive metoprolol tartrate 25 mg tablet RxNorm: 333389 1/2 Tablet(s) P O QD No Start Date 06/13/2016 Inactive metoprolol tartrate 50 mg tablet RxNorm: 049433 1/2 Tablet(s) P O BID No Start Date 05/09/2018 Inactive Flonase Allergy Relief 50 mcg/actuation nasal spray,suspensi on RxNorm: 1004401 2 [place] NASAL QHS No Start Date 11/06/2018 Inactive [...] Date S vice Location COMPLETE BLOOD COUNT [id number] WBC 7.1 10e9/L 03/13/19 20 Unknown COMPLETE BLOOD COUNT [id number] RBC 4.16 10e12/L 2019 Unknown COMPLETE BLOOD COUNT [id number] HEMOGLOBIN 12.4 g/dL 03/13/19 Unknown COMPLETE BLOOD COUNT [id number] HEMATOCRIT 39.3 % 03/13/19 20 Unknown COMPLETE BLOOD COUNT [id number] MCV 94.5 fL 0 Unknown COMPLETE BLOOD COUNT [id number] MCH 29.8 pg 0 Unknown COMPLETE BLOOD COUNT [id number] MCHC 31.6 g/dL 0 Unknown COMPLETE BLOOD COUNT [id number] PLATELET COUNT 161 10e9/L 09/2019 Unknown COMPLETE BLOOD COUNT [id number] Mean Plt Volume 10.8 fL 09/2019 Unknown COMPLETE BLOOD COUNT [id number] Neut Auto 38.7 % 0 Unknown COMPLETE BLOOD COUNT [id number] Lymph Auto 48.0 % 03/13/19 Unknown COMPLETE BLOOD COUNT [id number] Johnson Auto 9.5 % 0 Unknown COMPLETE BLOOD COUNT [id number] RDW 13.5 % 0 Unknown COMPLETE BLOOD COUNT [id number] Eos Auto 3.2 % 0 Unknown COMPLETE BLOOD COUNT [id number] Baso Auto 0.6 % 0 Unknown COMPLETE BLOOD COUNT [id number] Neutrophil Abs 2.75 10e9/L Unknown COMPLETE BLOOD COUNT [id number] Lymphocyte Abs 3.41 10e9/L Unknown COMPLETE BLOOD COUNT [id number] Monocyte Abs 0.67 10e9/L 09/2019 Unknown COMPLETE BLOOD COUNT [id number] Eosinophil Abs 0.23 10e9/L Unknown COMPLETE BLOOD COUNT [id number] RDW-SD 44.7 fL 0 Unknown COMPLETE BLOOD COUNT [id number] Basophil Abs 0.04 10e9/L 09/2019 Unknown THYROID STIMULATING HORMONE 84733 TSH 1.677 uIU/mL 03/13/2019 Unknown COMPREHENSIVE METABOLIC 65859 AST 19 U/L 2019 Unknown COMPREHENSIVE METABOLIC 09223 ALT 12 U/L 2019 Unknown COMPREHENSIVE METABOLIC 66432 BUN 17 mg/dL 2019 Unknown COMPREHENSIVE METABOLIC 46925 ALBUMIN 4.2 g/dL 2019 Unknown COMPREHENSIVE METABOLIC 40873 CHLORIDE 103 mmol/L 03/13 Unknown COMPREHENSIVE METABOLIC 45454 Bili Total 0.2 mg/dL 03/13 Unknown COMPREHENSIVE METABOLIC 45120 ALK PHOS 61 U/L 2019 Unknown COMPREHENSIVE METABOLIC 56278 SODIUM 140 mmol/L 03/13 Unknown COMPREHENSIVE METABOLIC 79240 CREATININE 0.95 mg/dL 09/2019 Unknown COMPREHENSIVE METABOLIC 18779 CALCIUM 9.4 mg/dL 2019 Unknown COMPREHENSIVE METABOLIC 40304 POTASSIUM 4.2 mmol/L 03/13 Unknown COMPREHENSIVE METABOLIC 34419 Total Protein 6.5 g/dL Unknown COMPREHENSIVE METABOLIC 99692 Glucose 103 mg/dL 2019 Unknown COMPREHENSIVE METABOLIC 52819 Bicarbonate 26 mmol/L 09/2019 Unknown COMPREHENSIVE METABOLIC 27688 AGAP 11 mmol/L 2019 Unknown GFR CALC [id number] GFR Non Afr Amr 57 mL/min 03/13/2019 Unk nown GFR CALC [id number] GFR Afr Amr >60 mL/min 03/13/2019 Unknow n GFR CALC [id number] GFR Non Afr Amr 52 mL/min 12/15/2018 Unk nown GFR CALC [id number] GFR Afr Amr >60 mL/min 12/15/2018 Unknow n COMPREHENSIVE METABOLIC 79242 AST 17 U/L 2018 Unknown COMPREHENSIVE METABOLIC 52289 ALT 11 U/L 2018 Unknown COMPREHENSIVE METABOLIC 32999 BUN 17 mg/dL 2018 Unknown COMPREHENSIVE METABOLIC 78986 ALBUMIN 3.9 g/dL 2018 Unknown COMPREHENSIVE METABOLIC 70810 CHLORIDE 108 mmol/L 12/15 Unknown COMPREHENSIVE METABOLIC 06478 Bili Total 0.5 mg/dL 12/15 Unknown COMPREHENSIVE METABOLIC 69387 ALK PHOS 72 U/L 2018 Unknown COMPREHENSIVE METABOLIC 18491 SODIUM 142 mmol/L 12/15 Unknown COMPREHENSIVE METABOLIC 23410 CREATININE 1.02 mg/dL 12/05 Unknown COMPREHENSIVE METABOLIC 99494 CALCIUM 9.3 mg/dL 2018 Unknown COMPREHENSIVE METABOLIC 45375 POTASSIUM 4.0 mmol/L 12/15 Unknown COMPREHENSIVE METABOLIC 23744 Total Protein 6.2 g/dL Unknown COMPREHENSIVE METABOLIC 97116 Glucose 93 mg/dL 2018 Unknown COMPREHENSIVE METABOLIC 85810 Bicarbonate 27 mmol/L 12/05 Unknown COMPREHENSIVE METABOLIC 90941 AGAP 7 mmol/L 2018 Unknown GFR CALC [id number] GFR Non Afr Amr 48 mL/min 08/14/2018 Unk nown GFR CALC [id number] GFR Afr Amr 59 mL/min 08/14/2018 Unknown THYROID STIMULATING HORMONE 26142 TSH 1.936 uIU/mL 08/14/2018 Unknown COMPREHENSIVE METABOLIC 29787 AST 18 U/L 2018 Unknown COMPREHENSIVE METABOLIC 08900 ALT 11 U/L 2018 Unknown COMPREHENSIVE METABOLIC 09845 BUN 18 mg/dL 2018 Unknown COMPREHENSIVE METABOLIC 38914 ALBUMIN 4.2 g/dL 2018 Unknown COMPREHENSIVE METABOLIC 88423 CHLORIDE 109 mmol/L 08/14 Unknown COMPREHENSIVE METABOLIC 28099 Bili Total 0.4 mg/dL 08/14 Unknown COMPREHENSIVE METABOLIC 01917 ALK PHOS 64 U/L 2018 Unknown COMPREHENSIVE METABOLIC 22209 SODIUM 142 mmol/L 08/14 Unknown COMPREHENSIVE METABOLIC 68720 CREATININE 1.09 mg/dL 08/05 Unknown COMPREHENSIVE METABOLIC 15035 CALCIUM 9.3 mg/dL 2018 Unknown COMPREHENSIVE METABOLIC 60841 POTASSIUM 4.7 mmol/L 08/14 Unknown COMPREHENSIVE METABOLIC 40784 Total Protein 6.3 g/dL Unknown COMPREHENSIVE METABOLIC 43707 Glucose 84 mg/dL 2018 Unknown COMPREHENSIVE METABOLIC 85730 Bicarbonate 25 mmol/L 08/05 Unknown COMPREHENSIVE METABOLIC 50332 AGAP 8 mmol/L 2018 Unknown COMPLETE BLOOD COUNT [id number] WBC 7.8 10e9/L 08/15/19 19 Unknown COMPLETE BLOOD COUNT [id number] RBC 4.04 10e12/L 2018 Unknown COMPLETE BLOOD COUNT [id number] HEMOGLOBIN 12.2 g/dL 08/15/19 19 Unknown COMPLETE BLOOD COUNT [id number] HEMATOCRIT 38.6 % 08/15/19 19 Unknown COMPLETE BLOOD COUNT [id number] MCV 95.5 fL 9 Unknown COMPLETE BLOOD COUNT [id number] MCH 30.2 pg 9 Unknown COMPLETE BLOOD COUNT [id number] MCHC 31.6 g/dL 9 Unknown COMPLETE BLOOD COUNT [id number] PLATELET COUNT 215 10e9/L 12/2018 Unknown COMPLETE BLOOD COUNT [id number] Mean Plt Volume 11.2 fL 12/2018 Unknown COMPLETE BLOOD COUNT [id number] Neut Auto 45.7 % 9 Unknown COMPLETE BLOOD COUNT [id number] Lymph Auto 42.1 % 08/15/19 19 Unknown COMPLETE BLOOD COUNT [id number] Johnson Auto 9.2 % 9 Unknown COMPLETE BLOOD COUNT [id number] RDW 13.4 % 9 Unknown COMPLETE BLOOD COUNT [id number] Eos Auto 2.7 % 9 Unknown COMPLETE BLOOD COUNT [id number] Baso Auto 0.3 % 9 Unknown COMPLETE BLOOD COUNT [id number] Neutrophil Abs 3.56 10e9/L Unknown COMPLETE BLOOD COUNT [id number] Lymphocyte Abs 3.28 10e9/L Unknown COMPLETE BLOOD COUNT [id number] Monocyte Abs 0.72 10e9/L 08/05 Unknown COMPLETE BLOOD COUNT [id number] Eosinophil Abs 0.21 10e9/L Unknown COMPLETE BLOOD COUNT [id number] RDW-SD 44.9 fL 9 Unknown COMPLETE BLOOD COUNT [id number] Basophil Abs 0.02 10e9/L 08/05 Unknown COMPLETE BLOOD COUNT [id number] WBC 5.2 10e9/L 12/01/19 18 Unknown COMPLETE BLOOD COUNT [id number] RBC 4.21 10e12/L 2017 Unknown COMPLETE BLOOD COUNT [id number] HEMOGLOBIN 12.8 g/dL 12/01/19 18 Unknown COMPLETE BLOOD COUNT [id number] HEMATOCRIT 39.0 % 12/01/19 18 Unknown COMPLETE BLOOD COUNT [id number] MCV 92.6 fL 8 Unknown COMPLETE BLOOD COUNT [id number] MCH 30.4 pg 8 Unknown COMPLETE BLOOD COUNT [id number] MCHC 32.8 g/dL 8 Unknown COMPLETE BLOOD COUNT [id number] PLATELET COUNT 202 10e9/L Unknown COMPLETE BLOOD COUNT [id number] Mean Plt Volume 10.7 fL Unknown COMPLETE BLOOD COUNT [id number] Neut Auto 40.9 % 8 Unknown COMPLETE BLOOD COUNT [id number] Lymph Auto 46.3 % 12/01/19 18 Unknown COMPLETE BLOOD COUNT [id number] Johnson Auto 9.3 % 8 Unknown COMPLETE BLOOD COUNT [id number] RDW 13.7 % 8 Unknown COMPLETE BLOOD COUNT [id number] Eos Auto 2.9 % 8 Unknown COMPLETE BLOOD COUNT [id number] Baso Auto 0.6 % 8 Unknown COMPLETE BLOOD COUNT [id number] Neutrophil Abs 2.13 10e9/L Unknown COMPLETE BLOOD COUNT [id number] Lymphocyte Abs 2.41 10e9/L Unknown COMPLETE BLOOD COUNT [id number] Monocyte Abs 0.48 10e9/L 11/06 Unknown COMPLETE BLOOD COUNT [id number] Eosinophil Abs 0.15 10e9/L Unknown COMPLETE BLOOD COUNT [id number] RDW-SD 45.2 fL 8 Unknown COMPLETE BLOOD COUNT [id number] Basophil Abs 0.03 10e9/L 11/06 [place] [address] Glucose 118 mg/dL 11/30 [place] [address] CREATININE 1.01 mg/dL [place] [address] BUN 14 mg/dL 11/30 [place] [address] SODIUM 141 mmol/L 11/06 [place] [address] POTASSIUM 4.0 mmol/L 11/06 [place] [address] CHLORIDE 108 mmol/L 11/06 [place] [address] Bicarbonate 25 mmol/L [place] [address] AGAP 8 mmol/L 11/30 [place] [address] CALCIUM 9.6 mg/dL 11/30 Unknown FREE T4 10911 T4 Free 1.23 ng/dL 11/30/2017 Unknown GFR CALC [id number] GFR Non Afr Amr 53 mL/min 11/30/2017 Unk nown GFR CALC [id number] GFR Afr Amr >60 mL/min 11/30/2017 Unknow n THYROID STIMULATING HORMONE 14365 TSH 2.124 uIU/mL 11/30/2017 Unknown LIPID GROUP 73919 Cholesterol 152 mg/dL 09/28/2017 Unkno wn LIPID GROUP 84821 Triglyceride 151 mg/dL 09/28/2017 Unkn own LIPID GROUP 76885 HDL CHOLESTEROL 47 mg/dL 09/28/2017 U nknown LIPID GROUP 56720 Chol/HDL Ratio 3.23 ratio 09/28/2017 U nknown LIPID GROUP 56682 NON-HDL Chol 105 mg/dL 09/28/2017 Unkn own LIPID GROUP 83587 LDL Cholesterol 75 mg/dL 09/28/2017 U nknown ASSAY OF TROPONIN QUANT 35930 Troponin-I <0.30 ng/mL Unknown COMPREHENSIVE METABOLIC 85894 AST 20 U/L 2017 Unknown COMPREHENSIVE METABOLIC 64143 ALT 14 U/L 2017 Unknown COMPREHENSIVE METABOLIC 82323 BUN 19 mg/dL 2017 Unknown COMPREHENSIVE METABOLIC 41044 ALBUMIN 4.2 g/dL 2017 Unknown COMPREHENSIVE METABOLIC 18857 CHLORIDE 102 mmol/L 09/27 Unknown COMPREHENSIVE METABOLIC 59075 Bili Total 0.4 mg/dL 09/27 Unknown COMPREHENSIVE METABOLIC 89997 ALK PHOS 66 U/L 2017 Unknown COMPREHENSIVE METABOLIC 03186 SODIUM 135 mmol/L 09/27 Unknown COMPREHENSIVE METABOLIC 24522 CREATININE 1.01 mg/dL 09/05 Unknown COMPREHENSIVE METABOLIC 94022 CALCIUM 9.3 mg/dL 2017 Unknown COMPREHENSIVE METABOLIC 45107 POTASSIUM 4.8 mmol/L 09/27 Unknown COMPREHENSIVE METABOLIC 83449 Total Protein 7.0 g/dL Unknown COMPREHENSIVE METABOLIC 91152 Glucose 91 mg/dL 2017 Unknown COMPREHENSIVE METABOLIC 68886 Bicarbonate 23 mmol/L 09/05 Unknown COMPREHENSIVE METABOLIC 00363 AGAP 10 mmol/L 2017 Unknown COMPLETE BLOOD COUNT 8038881 WBC 7.5 10e9/L 09/28/19 18 Unknown COMPLETE BLOOD COUNT [id number] RBC 4.13 10e12/L 2017 Unknown COMPLETE BLOOD COUNT [id number] HEMOGLOBIN 12.6 g/dL 09/28/19 18 Unknown COMPLETE BLOOD COUNT 9657930 HEMATOCRIT 38.4 % 09/28/19 18 Unknown COMPLETE BLOOD COUNT 2511950 MCV 93.0 fL 8 Unknown COMPLETE BLOOD COUNT 2910760 MCH 30.5 pg 8 Unknown COMPLETE BLOOD COUNT 0318796 MCHC 32.8 g/dL 8 Unknown COMPLETE BLOOD COUNT 9377983 PLATELET COUNT 204 10e9/L Unknown COMPLETE BLOOD COUNT 5987830 Mean Plt Volume 10.9 fL Unknown COMPLETE BLOOD COUNT 2066038 Neut Auto 43.1 % 8 Unknown COMPLETE BLOOD COUNT 1183897 Lymph Auto 45.0 % 09/28/19 18 Unknown COMPLETE BLOOD COUNT 9737189 Johnson Auto 9.2 % 8 Unknown COMPLETE BLOOD COUNT 8566480 RDW 13.4 % 8 Unknown COMPLETE BLOOD COUNT 5654125 Eos Auto 2.3 % 8 Unknown COMPLETE BLOOD COUNT 1036594 Baso Auto 0.4 % 8 Unknown COMPLETE BLOOD COUNT 3975043 Neutrophil Abs 3.23 10e9/L Unknown COMPLETE BLOOD COUNT 4132590 Lymphocyte Abs 3.38 10e9/L Unknown COMPLETE BLOOD COUNT [id number] Monocyte Abs 0.69 10e9/L 09/05 Unknown COMPLETE BLOOD COUNT 9256879 Eosinophil Abs 0.17 10e9/L Unknown COMPLETE BLOOD COUNT 5396186 RDW-SD 44.4 fL 8 Unknown COMPLETE BLOOD COUNT [id number] Basophil Abs 0.03 10e9/L 09/05 Unknown GFR CALC 4113356 GFR Non Afr Amr 53 mL/min 09/27/2017 Unk nown GFR CALC 7365632 GFR Afr Amr >60 mL/min 09/27/2017 Unknow n GLYCOSYLATED HEMOGLOBIN TEST 24342 Hgb A1c 67755-1 5.4 % 0 09/27/2017 Unknown MEAN GLUC 5213788 Calc Mean Gluc 108 mg/dL 09/27/2017 Unkn own MEAN GLUC 3401279 Calc Mean Gluc 114 mg/dL 11/01/2016 Unkn own LIPID GROUP 27240 Cholesterol 146 mg/dL 11/01/2016 Unkno wn LIPID GROUP 55054 Triglyceride 119 mg/dL 11/01/2016 Unkn own LIPID GROUP 80152 HDL CHOLESTEROL 47 mg/dL 11/01/2016 U nknown LIPID GROUP 83329 Chol/HDL Ratio 3.11 ratio 11/01/2016 U nknown LIPID GROUP 29773 NON-HDL Chol 99 mg/dL 11/01/2016 Unkn own LIPID GROUP 72060 LDL Cholesterol 75 mg/dL 11/01/2016 U nknown GLYCOSYLATED HEMOGLOBIN TEST 75596 Hgb A1c 53271-9 5.6 % 0 11/01/2016 Unknown COMPREHENSIVE METABOLIC 83665 AST 22 U/L 2016 Unknown COMPREHENSIVE METABOLIC 58449 ALT 12 U/L 2016 Unknown COMPREHENSIVE METABOLIC 23190 BUN 17 mg/dL 2016 Unknown COMPREHENSIVE METABOLIC 21561 ALBUMIN 4.0 g/dL 2016 Unknown COMPREHENSIVE METABOLIC 54490 CHLORIDE 110 mmol/L 11/01 Unknown COMPREHENSIVE METABOLIC 96783 Bili Total 0.4 mg/dL 11/01 Unknown COMPREHENSIVE METABOLIC 33076 ALK PHOS 63 U/L 2016 Unknown COMPREHENSIVE METABOLIC 68561 SODIUM 140 mmol/L 11/01 Unknown COMPREHENSIVE METABOLIC 29577 CREATININE 1.05 mg/dL 10/06 Unknown COMPREHENSIVE METABOLIC 04994 CALCIUM 9.2 mg/dL 2016 Unknown COMPREHENSIVE METABOLIC 09881 POTASSIUM 4.2 mmol/L 11/01 Unknown COMPREHENSIVE METABOLIC 32016 Total Protein 6.2 g/dL Unknown COMPREHENSIVE METABOLIC 95642 Glucose 87 mg/dL 2016 Unknown COMPREHENSIVE METABOLIC 62565 Bicarbonate 24 mmol/L 10/06 Unknown COMPREHENSIVE METABOLIC 73813 AGAP 6 mmol/L 2016 Unknown GFR CALC 7139051 GFR Non Afr Amr 51 mL/min 11/01/2016 Unk nown GFR CALC 9700830 GFR Afr Amr >60 mL/min 11/01/2016 Unknow n COMPLETE BLOOD COUNT 0215879 WBC 6.7 10e9/L 11/02/19 17 Unknown COMPLETE BLOOD COUNT 0477843 RBC 4.04 10e12/L 2016 Unknown COMPLETE BLOOD COUNT 6526942 HEMOGLOBIN 12.1 g/dL 11/02/19 17 Unknown COMPLETE BLOOD COUNT 2183888 HEMATOCRIT 38.0 % 11/02/19 17 Unknown COMPLETE BLOOD COUNT 9801456 MCV 94.1 fL 7 Unknown COMPLETE BLOOD COUNT 8659076 MCH 30.0 pg 7 Unknown COMPLETE BLOOD COUNT 6708998 MCHC 31.8 g/dL 7 Unknown COMPLETE BLOOD COUNT 9719693 PLATELET COUNT 206 10e9/L Unknown COMPLETE BLOOD COUNT 4322681 Mean Plt Volume 11.3 fL Unknown COMPLETE BLOOD COUNT 8590156 Neut Auto 35.8 % 7 Unknown COMPLETE BLOOD COUNT 7163476 Lymph Auto 51.6 % 11/02/19 17 Unknown COMPLETE BLOOD COUNT 0240726 Johnson Auto 8.8 % 7 Unknown COMPLETE BLOOD COUNT 3714712 RDW 13.5 % 7 Unknown COMPLETE BLOOD COUNT 9475760 Eos Auto 3.4 % 7 Unknown COMPLETE BLOOD COUNT 6527276 Baso Auto 0.4 % 7 Unknown COMPLETE BLOOD COUNT 3692866 Neutrophil Abs 2.40 10e9/L Unknown COMPLETE BLOOD COUNT 0325201 Lymphocyte Abs 3.46 10e9/L Unknown COMPLETE BLOOD COUNT 1128975 Monocyte Abs 0.59 10e9/L 10/06 Unknown COMPLETE BLOOD COUNT 8390050 Eosinophil Abs 0.23 10e9/L Unknown COMPLETE BLOOD COUNT 3658511 RDW-SD 45.3 fL 7 Unknown COMPLETE BLOOD COUNT 5568025 Basophil Abs 0.03 10e9/L 10/06 Unknown THYROID STIMULATING HORMONE 02421 TSH 1.981 uIU/mL 11/01/2016 Unknown COMPLETE BLOOD COUNT 3820302 WBC 6.0 10e9/L 05/14/19 17 Unknown COMPLETE BLOOD COUNT 2015576 RBC 4.29 10e12/L 2016 Unknown COMPLETE BLOOD COUNT 6572627 HEMOGLOBIN 12.9 g/dL 05/14/19 17 Unknown COMPLETE BLOOD COUNT 1937340 HEMATOCRIT 38.4 % 05/14/19 17 Unknown COMPLETE BLOOD COUNT 5895496 MCV 89.5 fL 7 Unknown COMPLETE BLOOD COUNT 3586724 MCH 30.1 pg 7 Unknown COMPLETE BLOOD COUNT 6288917 MCHC 33.6 g/dL 7 Unknown COMPLETE BLOOD COUNT 6142282 PLATELET COUNT 181 10e9/L 11/2016 Unknown COMPLETE BLOOD COUNT 3752720 Mean Plt Volume 11.7 fL 11/2016 Unknown COMPLETE BLOOD COUNT 6143747 Neut Auto 36.9 % 7 Unknown COMPLETE BLOOD COUNT 6042503 Lymph Auto 50.4 % 05/14/19 17 Unknown COMPLETE BLOOD COUNT 3797771 Johnson Auto 9.0 % 7 Unknown COMPLETE BLOOD COUNT 6042075 RDW 13.7 % 7 Unknown COMPLETE BLOOD COUNT 4970558 Eos Auto 3.4 % 7 Unknown COMPLETE BLOOD COUNT 2553763 Baso Auto 0.3 % 7 Unknown COMPLETE BLOOD COUNT 5901131 Neutrophil Abs 2.21 10e9/L Unknown COMPLETE BLOOD COUNT 3578709 Lymphocyte Abs 3.02 10e9/L Unknown COMPLETE BLOOD COUNT 4134570 Monocyte Abs 0.54 10e9/L 11/2016 Unknown COMPLETE BLOOD COUNT 1501963 Eosinophil Abs 0.20 10e9/L Unknown COMPLETE BLOOD COUNT 5648701 RDW-SD 44.0 fL 7 Unknown COMPLETE BLOOD COUNT 0962550 Basophil Abs 0.02 10e9/L 11/2016 Unknown GLYCOSYLATED HEMOGLOBIN TEST 91017 Hgb A1c 59639-9 5.4 % 0 05/13/2016 Unknown THYROID STIMULATING HORMONE 07806 TSH 2.200 uIU/mL 05/13/2016 Unknown GFR CALC 4664362 GFR Non Afr Amr 50 mL/min 05/13/2016 Unk nown GFR CALC 8372619 GFR Afr Amr >60 mL/min 05/13/2016 Unknow n MEAN GLUC 7068584 Calc Mean Gluc 108 mg/dL 05/13/2016 Unkn own COMPREHENSIVE METABOLIC 96081 AST 18 U/L 2016 Unknown COMPREHENSIVE METABOLIC 23636 ALT 10 U/L 2016 Unknown COMPREHENSIVE METABOLIC 26395 BUN 20 mg/dL 2016 Unknown COMPREHENSIVE METABOLIC 08568 ALBUMIN 4.1 g/dL 2016 Unknown COMPREHENSIVE METABOLIC 88168 CHLORIDE 109 mmol/L 05/13 Unknown COMPREHENSIVE METABOLIC 47301 Bili Total 0.6 mg/dL 05/13 Unknown COMPREHENSIVE METABOLIC 85618 ALK PHOS 64 U/L 2016 Unknown COMPREHENSIVE METABOLIC 68068 SODIUM 141 mmol/L 05/13 Unknown COMPREHENSIVE METABOLIC 33046 CREATININE 1.06 mg/dL 11/2016 Unknown COMPREHENSIVE METABOLIC 88437 CALCIUM 9.9 mg/dL 2016 Unknown COMPREHENSIVE METABOLIC 00464 POTASSIUM 4.2 mmol/L 05/13 Unknown COMPREHENSIVE METABOLIC 86441 Total Protein 6.3 g/dL Unknown COMPREHENSIVE METABOLIC 40995 Glucose 99 mg/dL 2016 Unknown COMPREHENSIVE METABOLIC 57141 Bicarbonate 21 mmol/L 11/2016 Unknown COMPREHENSIVE METABOLIC 63071 AGAP 11 mmol/L 2016 Unknown LIPID GROUP 54662 Cholesterol 169 mg/dL 11/25/2015 Unkno wn LIPID GROUP 48800 Triglyceride 165 mg/dL 11/25/2015 Unkn own LIPID GROUP 06914 HDL CHOLESTEROL 43 mg/dL 11/25/2015 U nknown LIPID GROUP 71480 Chol/HDL Ratio 3.93 ratio 11/25/2015 U nknown LIPID GROUP 78553 NON-HDL Chol 126 mg/dL 11/25/2015 Unkn own LIPID GROUP 30003 LDL Cholesterol 93 mg/dL 11/25/2015 U nknown COMPREHENSIVE METABOLIC 96180 AST 18 U/L 2015 Unknown COMPREHENSIVE METABOLIC 80772 ALT 10 U/L 2015 Unknown COMPREHENSIVE METABOLIC 18559 BUN 20 mg/dL 2015 Unknown COMPREHENSIVE METABOLIC 16458 ALBUMIN 3.9 g/dL 2015 Unknown COMPREHENSIVE METABOLIC 96926 CHLORIDE 110 mmol/L 11/24 Unknown COMPREHENSIVE METABOLIC 60507 Bili Total 0.5 mg/dL 11/24 Unknown COMPREHENSIVE METABOLIC 27944 ALK PHOS 72 U/L 2015 Unknown COMPREHENSIVE METABOLIC 33165 SODIUM 141 mmol/L 11/24 Unknown COMPREHENSIVE METABOLIC 85521 CREATININE 1.12 mg/dL 11/06 Unknown COMPREHENSIVE METABOLIC 14947 CALCIUM 9.7 mg/dL 2015 Unknown COMPREHENSIVE METABOLIC 06234 POTASSIUM 4.4 mmol/L 11/24 Unknown COMPREHENSIVE METABOLIC 54511 Total Protein 6.2 g/dL Unknown COMPREHENSIVE METABOLIC 65307 Glucose 90 mg/dL 2015 Unknown COMPREHENSIVE METABOLIC 08022 Bicarbonate 23 mmol/L 11/06 Unknown COMPREHENSIVE METABOLIC 16526 AGAP 8 mmol/L 2015 Unknown GFR CALC 9597180 GFR Non Afr Amr 47 mL/min 11/25/2015 Unk nown GFR CALC 7101330 GFR Afr Amr 57 mL/min 11/25/2015 Unknown GLYCOSYLATED HEMOGLOBIN TEST 59192 Hgb A1c 77950-3 5.5 % 0 11/25/2015 Unknown THYROID STIMULATING HORMONE 54882 TSH 2.537 uIU/mL 11/25/2015 Unknown FREE T4 81169 T4 Free 1.36 ng/dL 11/25/2015 Unknown COMPLETE BLOOD COUNT 8898986 WBC 6.8 10e9/L 11/25/19 16 Unknown COMPLETE BLOOD COUNT 5430691 RBC 4.20 10e12/L 2015 Unknown COMPLETE BLOOD COUNT 6823522 HEMOGLOBIN 12.5 g/dL 11/25/19 16 Unknown COMPLETE BLOOD COUNT 2033710 HEMATOCRIT 38.0 % 11/25/19 16 Unknown COMPLETE BLOOD COUNT 2856432 MCV 90.5 fL 6 Unknown COMPLETE BLOOD COUNT 4061300 MCH 29.8 pg 6 Unknown COMPLETE BLOOD COUNT 3297292 MCHC 32.9 g/dL 6 Unknown COMPLETE BLOOD COUNT 4926076 PLATELET COUNT 197 10e9/L Unknown COMPLETE BLOOD COUNT 3995553 Mean Plt Volume 11.7 fL Unknown COMPLETE BLOOD COUNT 4683381 Neut Auto 41.3 % 6 Unknown COMPLETE BLOOD COUNT 9350272 Lymph Auto 47.1 % 11/25/19 16 Unknown COMPLETE BLOOD COUNT 1894125 Johnson Auto 7.8 % 6 Unknown COMPLETE BLOOD COUNT 1344866 RDW 13.8 % 6 Unknown COMPLETE BLOOD COUNT 8691262 Eos Auto 3.4 % 6 Unknown COMPLETE BLOOD COUNT 1072914 Baso Auto 0.4 % 6 Unknown COMPLETE BLOOD COUNT 9137192 Neutrophil Abs 2.81 10e9/L Unknown COMPLETE BLOOD COUNT 1080294 Lymphocyte Abs 3.20 10e9/L Unknown COMPLETE BLOOD COUNT 1457270 Monocyte Abs 0.53 10e9/L 11/06 Unknown COMPLETE BLOOD COUNT 7252065 Eosinophil Abs 0.23 10e9/L Unknown COMPLETE BLOOD COUNT 8071853 RDW-SD 44.4 fL 6 Unknown COMPLETE BLOOD COUNT 9660025 Basophil Abs 0.03 10e9/L 11/06 Unknown MEAN GLUC 6676076 Calc Mean Gluc 111 mg/dL 11/25/2015 [place] [address] Glucose 89 MG/DL 02/19 [place] [address] CREATININE 1.12 MG/DL [place] [address] BUN 20 MG/DL 02/19 [place] [address] SODIUM 139 MMOL/L 02/04 [place] [address] POTASSIUM 4.6 MMOL/L 02/04 [place] [address] CHLORIDE 108 MMOL/L 02/04 [place] [address] BICARB 26 MMOL/L 02/19 [place] [address] ANION GAP 5 MEQ/L 02/19 [place] [address] CALCIUM 10.0 MG/DL 02/04 Unknown GFR CALC 0980678 GFR AA 57.0L ML/MIN 02/19/2015 Unknow n GFR CALC 1288454 GFR NON-AA 47.0L ML/MIN 02/19/2015 Unkno wn THYROID STIMULATING HORMONE 86287 TSH 2.378 uIU/ML 11/14/2014 Unknown COMPLETE BLOOD COUNT 8008994 WBC 6.4 10e9/L 11/15/19 15 Unknown COMPLETE BLOOD COUNT 5421033 RBC 3.99 10e12/L 2014 Unknown COMPLETE BLOOD COUNT 5614007 HGB 11.9 g/dL 5 Unknown COMPLETE BLOOD COUNT 4639208 HCT DET 36.9 % 5 Unknown COMPLETE BLOOD COUNT 3369108 MCV 92.5 fL 5 Unknown COMPLETE BLOOD COUNT 4893026 MCH 29.8 pg 5 Unknown COMPLETE BLOOD COUNT 0193921 MCHC 32.2 g/dL 5 Unknown COMPLETE BLOOD COUNT 6296999 PLT 172 10e9/L 11/15/19 15 Unknown COMPLETE BLOOD COUNT 2260745 MPV 11.7 fL 5 Unknown COMPLETE BLOOD COUNT 9507178 CINTHYA % 40.4 % 5 Unknown COMPLETE BLOOD COUNT 9777482 LY % 48.0 % 5 Unknown COMPLETE BLOOD COUNT 8158218 MON % 8.3 % 5 Unknown COMPLETE BLOOD COUNT 3168415 EOS % 2.8 % 5 Unknown COMPLETE BLOOD COUNT 6942194 BASO % 0.5 % 5 Unknown COMPLETE BLOOD COUNT 9856574 RDW 13.6 % 5 Unknown COMPLETE BLOOD COUNT 5247916 ABS CINTHYA 2.59 10e9/L 015 Unknown COMPLETE BLOOD COUNT 5037161 ABS LYMPH 3.07 10e9/L 015 Unknown COMPLETE BLOOD COUNT 7157066 ABS MONO 0.53 10e9/L 015 Unknown COMPLETE BLOOD COUNT 3715087 ABS EOS 0.18 10e9/L 015 Unknown COMPLETE BLOOD COUNT 4931160 ABS BASO 0.03 10e9/L 015 Unknown COMPLETE BLOOD COUNT 0974268 RDW-SD 44.9 fL 5 Unknown LIPID GROUP 07303 HDL TEST 42 MG/DL 11/14/2014 Unknown LIPID GROUP 25710 TRIG 177 MG/DL 11/14/2014 Unknown LIPID GROUP 86340 TEST LDL 72 MG/DL 11/14/2014 Unknown LIPID GROUP 26555 CHOL 149 MG/DL 11/14/2014 Unknown LIPID GROUP 78999 RCHOL/HDL 3.55 RATIO 11/14/2014 Unknow n LIPID GROUP 41917 NON-HDL CH 107 MG/DL 11/14/2014 Unknow n GLYCOSYLATED HEMOGLOBIN TEST 75097 A1C HPLC 01225-9 5.5 % 0 11/14/2014 Unknown FREE T4 50534 FREE T4 1.39 NG/DL 11/14/2014 Unknown GFR CALC 9137198 GFR AA 55.0L ML/MIN 11/14/2014 Unknow n GFR CALC 1160978 GFR NON-AA 46.0L ML/MIN 11/14/2014 Unkno wn COMPREHENSIVE METABOLIC 29159 AST 17 U/L 2014 Unknown COMPREHENSIVE METABOLIC 35923 ALT 10 IU/L 2014 Unknown COMPREHENSIVE METABOLIC 90413 BUN 20 MG/DL 2014 Unknown COMPREHENSIVE METABOLIC 16235 ALBUMIN 3.9 GM/DL 2014 Unknown COMPREHENSIVE METABOLIC 70695 CHLORIDE 111 MMOL/L 11/14 Unknown COMPREHENSIVE METABOLIC 41900 BILI TOT 0.4 MG/DL 2014 Unknown COMPREHENSIVE METABOLIC 71981 ALK PHOS 70 U/L 2014 Unknown COMPREHENSIVE METABOLIC 47906 SODIUM 142 MMOL/L 11/14 Unknown COMPREHENSIVE METABOLIC 12265 CREATININE 1.16 MG/DL 11/05 Unknown COMPREHENSIVE METABOLIC 38288 CALCIUM 9.4 MG/DL 2014 Unknown COMPREHENSIVE METABOLIC 46242 POTASSIUM 4.6 MMOL/L 11/14 Unknown COMPREHENSIVE METABOLIC 68686 PROT TOT 6.2 GM/DL 2014 Unknown COMPREHENSIVE METABOLIC 90037 Glucose 90 MG/DL 2014 Unknown COMPREHENSIVE METABOLIC 49848 BICARB 24 MMOL/L 2014 Unknown COMPREHENSIVE METABOLIC 05226 ANION GAP 7 MEQ/L 2014 Unknown THYROID STIMULATING HORMONE 05022 TSH 2.427 uIU/ML 05/10/2014 Unknown LIPID GROUP 94998 HDL TEST 47 MG/DL 05/10/2014 Unknown LIPID GROUP 12999 TRIG 145 MG/DL 05/10/2014 Unknown LIPID GROUP 42738 TEST LDL 73 MG/DL 05/10/2014 Unknown LIPID GROUP 82728 CHOL 149 MG/DL 05/10/2014 Unknown LIPID GROUP 74361 RCHOL/HDL 3.17 RATIO 05/10/2014 Unknow n LIPID GROUP 07571 NON-HDL CH 102 MG/DL 05/10/2014 Unknow n COMPREHENSIVE METABOLIC 64278 AST 17 U/L 2014 Unknown COMPREHENSIVE METABOLIC 15409 ALT 9 IU/L 2014 Unknown COMPREHENSIVE METABOLIC 41478 BUN 19 MG/DL 2014 Unknown COMPREHENSIVE METABOLIC 54798 ALBUMIN 4.3 GM/DL 2014 Unknown COMPREHENSIVE METABOLIC 28974 CHLORIDE 108 MMOL/L 05/10 Unknown COMPREHENSIVE METABOLIC 77396 BILI TOT 0.5 MG/DL 2014 Unknown COMPREHENSIVE METABOLIC 46091 ALK PHOS 68 U/L 2014 Unknown COMPREHENSIVE METABOLIC 91279 SODIUM 140 MMOL/L 05/10 Unknown COMPREHENSIVE METABOLIC 27915 CREATININE 1.08 MG/DL 08/2014 Unknown COMPREHENSIVE METABOLIC 74806 CALCIUM 9.9 MG/DL 2014 Unknown COMPREHENSIVE METABOLIC 16943 POTASSIUM 4.3 MMOL/L 05/10 Unknown COMPREHENSIVE METABOLIC 21059 PROT TOT 7.2 GM/DL 2014 Unknown COMPREHENSIVE METABOLIC 90931 Glucose 94 MG/DL 2014 Unknown COMPREHENSIVE METABOLIC 36682 BICARB 26 MMOL/L 2014 Unknown COMPREHENSIVE METABOLIC 57385 ANION GAP 6 MEQ/L 2014 Unknown GFR CALC 3978656 GFR AA 60.0L ML/MIN 05/10/2014 Unknow n GFR CALC 7304723 GFR NON-AA 49.0L ML/MIN 05/10/2014 Unkno wn GLYCOSYLATED HEMOGLOBIN TEST 97511 A1C HPLC 71861-9 5.6 % 0 05/10/2014 Unknown COMPLETE BLOOD COUNT 3320473 WBC 7.2 10e9/L 05/11/19 15 Unknown COMPLETE BLOOD COUNT 5728044 RBC 4.28 10e12/L 2014 Unknown COMPLETE BLOOD COUNT 2186346 HGB 12.8 g/dL 5 Unknown COMPLETE BLOOD COUNT 2519677 HCT DET 39.3 % 5 Unknown COMPLETE BLOOD COUNT 0242104 MCV 91.8 fL 5 Unknown COMPLETE BLOOD COUNT 3305948 MCH 29.9 pg 5 Unknown COMPLETE BLOOD COUNT 2171456 MCHC 32.6 g/dL 5 Unknown COMPLETE BLOOD COUNT 1248247 PLT 189 10e9/L 05/11/19 15 Unknown COMPLETE BLOOD COUNT 7416207 MPV 11.2 fL 5 Unknown COMPLETE BLOOD COUNT 5400808 CINTHYA % 38.0 % 5 Unknown COMPLETE BLOOD COUNT 4269207 LY % 51.0 % 5 Unknown COMPLETE BLOOD COUNT 4173365 MON % 7.7 % 5 Unknown COMPLETE BLOOD COUNT 3189050 EOS % 2.9 % 5 Unknown COMPLETE BLOOD COUNT 1069466 BASO % 0.4 % 5 Unknown COMPLETE BLOOD COUNT 8198468 RDW 14.0 % 5 Unknown COMPLETE BLOOD COUNT 8856174 ABS CINTHYA 2.74 10e9/L 015 Unknown COMPLETE BLOOD COUNT 6092825 ABS LYMPH 3.67 10e9/L 015 Unknown COMPLETE BLOOD COUNT 3163862 ABS MONO 0.55 10e9/L 015 Unknown COMPLETE BLOOD COUNT 2908774 ABS EOS 0.21 10e9/L 015 Unknown COMPLETE BLOOD COUNT 9225579 ABS BASO 0.03 10e9/L 015 Unknown COMPLETE BLOOD COUNT 9080603 RDW-SD 46.1 fL 5 Unknown FREE T4 24248 FREE T4 1.14 NG/DL 05/10/2014 Unknown GLYCOSYLATED HEMOGLOBIN TEST 74028 A1C HPLC 31213-9 5.2 % 0 03/29/2013 Unknown FREE T4 26521 FREE T4 1.40 NG/DL 03/28/2013 Unknown GFR CALC 3099272 GFR AA >60 ML/MIN 03/28/2013 Unknown GFR CALC 8858898 GFR NON-AA 52.0L ML/MIN 03/28/2013 Unkno wn COMPREHENSIVE METABOLIC 16871 AST 15 U/L 2013 Unknown COMPREHENSIVE METABOLIC 31748 ALT 9 IU/L 2013 Unknown COMPREHENSIVE METABOLIC 29592 BUN 17 MG/DL 2013 Unknown COMPREHENSIVE METABOLIC 78396 ALBUMIN 4.0 GM/DL 2013 Unknown COMPREHENSIVE METABOLIC 18259 CHLORIDE 112 MMOL/L 03/28 Unknown COMPREHENSIVE METABOLIC 01055 BILI TOT 0.5 MG/DL 2013 Unknown COMPREHENSIVE METABOLIC 13106 ALK PHOS 66 U/L 2013 Unknown COMPREHENSIVE METABOLIC 06810 SODIUM 140 MMOL/L 03/28 Unknown COMPREHENSIVE METABOLIC 85109 CREATININE 1.03 MG/DL 03/08 Unknown COMPREHENSIVE METABOLIC 89963 CALCIUM 9.5 MG/DL 2013 Unknown COMPREHENSIVE METABOLIC 86118 POTASSIUM 4.1 MMOL/L 03/28 Unknown COMPREHENSIVE METABOLIC 11641 PROT TOT 6.2 GM/DL 2013 Unknown COMPREHENSIVE METABOLIC 98017 Glucose 102 MG/DL 2013 Unknown COMPREHENSIVE METABOLIC 73402 BICARB 23 MMOL/L 2013 Unknown COMPREHENSIVE METABOLIC 89028 ANION GAP 5 MEQ/L 2013 Unknown THYROID STIMULATING HORMONE 23447 TSH 2.074 uIU/ML 03/28/2013 Unknown VITAMIN B 12 FOLIC ACID 54420|05060 VIT B 12 423 PG/ML 03/08 Unknown VITAMIN B 12 FOLIC ACID 28666|38481 FOLIC ACID 19.7 NG/ML Unknown LIPID GROUP 28626 HDL TEST 40 MG/DL 03/28/2013 Unknown LIPID GROUP 04524 TRIG 145 MG/DL 03/28/2013 Unknown LIPID GROUP 26553 TEST LDL 81 MG/DL 03/28/2013 Unknown LIPID GROUP 45660 CHOL 150 MG/DL 03/28/2013 Unknown LIPID GROUP 95757 RCHOL/HDL 3.75 RATIO 03/28/2013 Unknow n COMPLETE BLOOD COUNT 6838700 WBC 6.0 10e9/L 03/28/19 14 Unknown COMPLETE BLOOD COUNT 6039539 RBC 4.26 10e12/L 2013 Unknown COMPLETE BLOOD COUNT 2815950 HGB 12.7 g/dL 4 Unknown COMPLETE BLOOD COUNT 6639600 HCT DET 38.7 % 4 Unknown COMPLETE BLOOD COUNT 3879020 MCV 90.8 fL 4 Unknown COMPLETE BLOOD COUNT 4272907 MCH 29.8 pg 4 Unknown COMPLETE BLOOD COUNT 0440239 MCHC 32.8 g/dL 4 Unknown COMPLETE BLOOD COUNT 0033502 PLT 178 10e9/L 03/28/19 14 Unknown COMPLETE BLOOD COUNT 2059639 MPV 11.7 fL 4 Unknown COMPLETE BLOOD COUNT 9413081 CINTHYA % 30.5 % 4 Unknown COMPLETE BLOOD COUNT 1183160 LY % 55.4 % 4 Unknown COMPLETE BLOOD COUNT 9799248 MON % 9.0 % 4 Unknown COMPLETE BLOOD COUNT 7797346 EOS % 4.4 % 4 Unknown COMPLETE BLOOD COUNT 7921946 BASO % 0.7 % 4 Unknown COMPLETE BLOOD COUNT 5386157 RDW 13.3 % 4 Unknown COMPLETE BLOOD COUNT 7364095 ABS CINTHYA 1.83 10e9/L 014 Unknown COMPLETE BLOOD COUNT 8715566 ABS LYMPH 3.32 10e9/L 014 Unknown COMPLETE BLOOD COUNT 8555359 ABS MONO 0.54 10e9/L 014 Unknown COMPLETE BLOOD COUNT 8644578 ABS EOS 0.26 10e9/L 014 Unknown COMPLETE BLOOD COUNT 7476853 ABS BASO 0.04 10e9/L 014 Unknown COMPLETE BLOOD COUNT 9386173 RDW-SD 43.2 fL 4 Unknown HEMOGLOBIN A1C (GLYCOSYLATED) 3989897 A1C HPLC 24498-6 5.5 % 02/24/2012 Unknown COMPLETE BLOOD COUNT 1920492 WBC 6.0 10e9/L 02/23/20 12 Unknown COMPLETE BLOOD COUNT 8960880 RBC 4.22 10e12/L 2011 Unknown COMPLETE BLOOD COUNT 8552662 HGB 12.4 g/dL 2 Unknown COMPLETE BLOOD COUNT 3341839 HCT DET 38.2 % 2 Unknown COMPLETE BLOOD COUNT 6026510 MCV 90.5 fL 2 Unknown COMPLETE BLOOD COUNT 3187459 MCH 29.4 pg 2 Unknown COMPLETE BLOOD COUNT 5209972 MCHC 32.5 g/dL 2 Unknown COMPLETE BLOOD COUNT 4894270 PLT 187 10e9/L 02/23/20 12 Unknown COMPLETE BLOOD COUNT 0844821 MPV 11.5 fL 2 Unknown COMPLETE BLOOD COUNT 2110090 CINTHYA % 36.4 % 2 Unknown COMPLETE BLOOD COUNT 1980873 LY % 51.0 % 2 Unknown COMPLETE BLOOD COUNT 1674160 MON % 8.7 % 2 Unknown COMPLETE BLOOD COUNT 8467108 EOS % 3.2 % 2 Unknown COMPLETE BLOOD COUNT 2200127 BASO % 0.7 % 2 Unknown COMPLETE BLOOD COUNT 7516910 RDW 13.7 % 2 Unknown COMPLETE BLOOD COUNT 3818549 ABS CINTHYA 2.18 10e9/L 012 Unknown COMPLETE BLOOD COUNT 9185969 ABS LYMPH 3.06 10e9/L 012 Unknown COMPLETE BLOOD COUNT 6095953 ABS MONO 0.52 10e9/L 012 Unknown COMPLETE BLOOD COUNT 5399006 ABS EOS 0.19 10e9/L 012 Unknown COMPLETE BLOOD COUNT 3289420 ABS BASO 0.04 10e9/L 012 Unknown COMPLETE BLOOD COUNT 0717371 RDW-SD 44.3 fL 2 Unknown LIPID GROUP 76125 HDL TEST 42 MG/DL 02/23/2012 Unknown LIPID GROUP 27489 TRIG 156 MG/DL 02/23/2012 Unknown LIPID GROUP 81422 TEST LDL 80 MG/DL 02/23/2012 Unknown LIPID GROUP 73780 CHOL 153 MG/DL 02/23/2012 Unknown LIPID GROUP 25341 RCHOL/HDL 3.64 RATIO 02/23/2012 Unknow n FREE T4 93241 FREE T4 1.22 NG/DL 02/23/2012 Unknown COMPREHENSIVE METABOLIC 56479 AST 20 U/L 2011 Unknown COMPREHENSIVE METABOLIC 22314 ALT 11 IU/L 2011 Unknown COMPREHENSIVE METABOLIC 46177 BUN 19 MG/DL 2011 Unknown COMPREHENSIVE METABOLIC 45017 ALBUMIN 4.3 GM/DL 2011 Unknown COMPREHENSIVE METABOLIC 72365 CHLORIDE 109 MMOL/L 02/22 Unknown COMPREHENSIVE METABOLIC 02300 BILI TOT 0.6 MG/DL 2011 Unknown COMPREHENSIVE METABOLIC 23024 ALK PHOS 84 U/L 2011 Unknown COMPREHENSIVE METABOLIC 20427 SODIUM 142 MMOL/L 02/22 Unknown COMPREHENSIVE METABOLIC 68259 CREATININE 1.09 MG/DL 02/04 Unknown COMPREHENSIVE METABOLIC 36000 CALCIUM 9.8 MG/DL 2011 Unknown COMPREHENSIVE METABOLIC 63858 POTASSIUM 4.2 MMOL/L 02/22 Unknown COMPREHENSIVE METABOLIC 69220 PROT TOT 6.4 GM/DL 2011 Unknown COMPREHENSIVE METABOLIC 19801 Glucose 89 MG/DL 2011 Unknown COMPREHENSIVE METABOLIC 04237 BICARB 25 MMOL/L 2011 Unknown COMPREHENSIVE METABOLIC 75968 ANION GAP 8 MEQ/L 2011 Unknown GFR CALC [id number] GFR AA 60.0L ML/MIN 02/23/2012 Unknow n GFR CALC [id number] GFR NON-AA 49.0L ML/MIN 02/23/2012 Unkno wn THYROID STIMULATING HORMONE 14413 TSH 2.450 uIU/ML 02/23/2012 Unknown COMPREHENSIVE METABOLIC 32807 AST 22 U/L 2011 Unknown COMPREHENSIVE METABOLIC 50268 ALT 14 IU/L 2011 Unknown COMPREHENSIVE METABOLIC 29164 BUN 21 MG/DL 2011 Unknown COMPREHENSIVE METABOLIC 18883 ALBUMIN 4.3 GM/DL 2011 Unknown COMPREHENSIVE METABOLIC 14821 CHLORIDE 106 MMOL/L 04/01 Unknown COMPREHENSIVE METABOLIC 06275 BILI TOT 0.4 MG/DL 2011 Unknown COMPREHENSIVE METABOLIC 83854 ALK PHOS 80 U/L 2011 Unknown COMPREHENSIVE METABOLIC 54208 SODIUM 141 MMOL/L 04/01 Unknown COMPREHENSIVE METABOLIC 03135 CREATININE 1.13 MG/DL 03/08 Unknown COMPREHENSIVE METABOLIC 14446 CALCIUM 9.4 MG/DL 2011 Unknown COMPREHENSIVE METABOLIC 75601 POTASSIUM 4.3 MMOL/L 04/01 Unknown COMPREHENSIVE METABOLIC 64569 PROT TOT 6.7 GM/DL 2011 Unknown COMPREHENSIVE METABOLIC 64710 Glucose 98 MG/DL 2011 Unknown COMPREHENSIVE METABOLIC 14569 BICARB 25 MMOL/L 2011 Unknown COMPREHENSIVE METABOLIC 41609 ANION GAP 10 MEQ/L 2011 Unknown LIPID GROUP 59759 HDL TEST 44 MG/DL 04/01/2011 Unknown LIPID GROUP 39813 TRIG 164 MG/DL 04/01/2011 Unknown LIPID GROUP 49888 TEST LDL 98 MG/DL 04/01/2011 Unknown LIPID GROUP 99120 CHOL 175 MG/DL 04/01/2011 Unknown LIPID GROUP 33408 RCHOL/HDL 3.98 RATIO 04/01/2011 Unknow n COMPLETE BLOOD COUNT 45250 WBC 6.7 10e9/L 04/01/19 12 Unknown COMPLETE BLOOD COUNT 94104 RBC 4.36 10e12/L 2011 Unknown COMPLETE BLOOD COUNT 11801 HGB 12.9 g/dL 2 Unknown COMPLETE BLOOD COUNT 41406 HCT DET 39.4 % 2 Unknown COMPLETE BLOOD COUNT 79867 MCV 90.4 fL 2 Unknown COMPLETE BLOOD COUNT 39228 MCH 29.6 pg 2 Unknown COMPLETE BLOOD COUNT 23769 MCHC 32.7 g/dL 2 Unknown COMPLETE BLOOD COUNT 41996 PLT 184 10e9/L 04/01/19 12 Unknown COMPLETE BLOOD COUNT 19463 MPV 10.9 fL 2 Unknown COMPLETE BLOOD COUNT 20704 CINTHYA % 41.5 % 2 Unknown COMPLETE BLOOD COUNT 15432 LY % 45.7 % 2 Unknown COMPLETE BLOOD COUNT 42400 MON % 9.4 % 2 Unknown COMPLETE BLOOD COUNT 45429 EOS % 3.0 % 2 Unknown COMPLETE BLOOD COUNT 87272 BASO % 0.4 % 2 Unknown COMPLETE BLOOD COUNT 68016 RDW 13.2 % 2 Unknown COMPLETE BLOOD COUNT 58967 ABS CINTHYA 2.78 10e9/L 012 Unknown COMPLETE BLOOD COUNT 50141 ABS LYMPH 3.06 10e9/L 012 Unknown COMPLETE BLOOD COUNT 31983 ABS MONO 0.63 10e9/L 012 Unknown COMPLETE BLOOD COUNT 63145 ABS EOS 0.20 10e9/L 012 Unknown COMPLETE BLOOD COUNT 34276 ABS BASO 0.03 10e9/L 012 Unknown COMPLETE BLOOD COUNT 02525 RDW-SD 42.3 fL 2 Unknown GFR CALC [id number] GFR AA 57.0L ML/MIN 04/01/2011 Unknow n GFR CALC [id number] GFR NON-AA 47.0L ML/MIN 04/01/2011 Unkno wn THYROID STIMULATING HORMONE 92840 TSH 2.663 uIU/ML 04/01/2011 Unknown FREE T4 10618 FREE T4 1.15 NG/DL 04/01/2011 Unknown THYROID STIMULATING HORMONE 23721 TSH 1.908 uIU/ML 07/06/2010 Unknown COMPLETE BLOOD COUNT 13260 WBC 6.4 10e9/L 07/07/19 11 Unknown COMPLETE BLOOD COUNT 95417 RBC 3.92 10e12/L 2010 Unknown COMPLETE BLOOD COUNT 34440 HGB 11.8 g/dL 1 Unknown COMPLETE BLOOD COUNT 41553 HCT DET 36.0 % 1 Unknown COMPLETE BLOOD COUNT 76012 MCV 91.8 fL 1 Unknown COMPLETE BLOOD COUNT 26748 MCH 30.1 pg 1 Unknown COMPLETE BLOOD COUNT 95704 MCHC 32.8 g/dL 1 Unknown COMPLETE BLOOD COUNT 73578 PLT 176 10e9/L 07/07/19 11 Unknown COMPLETE BLOOD COUNT 53557 MPV 11.4 fL 1 Unknown COMPLETE BLOOD COUNT 25097 CINTHYA % 50.4 % 1 Unknown COMPLETE BLOOD COUNT 28041 LY % 35.5 % 1 Unknown COMPLETE BLOOD COUNT 28084 MON % 10.2 % 1 Unknown COMPLETE BLOOD COUNT 90565 EOS % 3.3 % 1 Unknown COMPLETE BLOOD COUNT 90834 BASO % 0.6 % 1 Unknown COMPLETE BLOOD COUNT 57836 RDW 13.7 % 1 Unknown COMPLETE BLOOD COUNT 81006 ABS CINTHYA 3.23 10e9/L 011 Unknown COMPLETE BLOOD COUNT 45402 ABS LYMPH 2.27 10e9/L 011 Unknown COMPLETE BLOOD COUNT 82998 ABS MONO 0.65 10e9/L 011 Unknown COMPLETE BLOOD COUNT 65585 ABS EOS 0.21 10e9/L 011 Unknown COMPLETE BLOOD COUNT 28501 ABS BASO 0.04 10e9/L 011 Unknown COMPLETE BLOOD COUNT 80435 RDW-SD 45.3 fL 1 Unknown GFR CALC [id number] GFR AA >60 ML/MIN 07/06/2010 Unknown GFR CALC 6978475 GFR NON-AA 53.0L ML/MIN 07/06/2010 Unkno wn FREE T4 56511 FREE T4 1.20 NG/DL 07/06/2010 Unknown COMPREHENSIVE METABOLIC 44212 AST 17 U/L 2010 Unknown COMPREHENSIVE METABOLIC 43830 ALT 9 IU/L 2010 Unknown COMPREHENSIVE METABOLIC 74238 BUN 16 MG/DL 2010 Unknown COMPREHENSIVE METABOLIC 20189 ALBUMIN 4.0 GM/DL 2010 Unknown COMPREHENSIVE METABOLIC 79214 CHLORIDE 108 MMOL/L 07/06 Unknown COMPREHENSIVE METABOLIC 64117 BILI TOT 0.5 MG/DL 2010 Unknown COMPREHENSIVE METABOLIC 92451 ALK PHOS 76 U/L 2010 Unknown COMPREHENSIVE METABOLIC 99964 SODIUM 139 MMOL/L 07/06 Unknown COMPREHENSIVE METABOLIC 28743 CREATININE 1.02 MG/DL 04/2010 Unknown COMPREHENSIVE METABOLIC 48366 CALCIUM 9.2 MG/DL 2010 Unknown COMPREHENSIVE METABOLIC 65356 POTASSIUM 4.5 MMOL/L 07/06 Unknown COMPREHENSIVE METABOLIC 37532 PROT TOT 6.1 GM/DL 2010 Unknown COMPREHENSIVE METABOLIC 99465 Glucose 93 MG/DL 2010 Unknown COMPREHENSIVE METABOLIC 50224 BICARB 26 MMOL/L 2010 Unknown COMPREHENSIVE METABOLIC 60153 ANION GAP 5 MEQ/L 2010 Unknown LIPID GROUP 91655 HDL TEST 46 MG/DL 07/06/2010 Unknown LIPID GROUP 80362 TRIG 102 MG/DL 07/06/2010 Unknown LIPID GROUP 14042 TEST LDL 88 MG/DL 07/06/2010 Unknown LIPID GROUP 70332 CHOL 154 MG/DL 07/06/2010 Unknown LIPID GROUP 34509 RCHOL/HDL 3.35 RATIO 07/06/2010 Unknow n Procedures Procedure Codes Date ROUTINE VENIPUNCTURE CPT-4: 28888 03/13/2019 ASSAY THYROID STIM HORMONE CPT-4: 86764 03/13/2019 COMPLETE CBC W/AUTO DIFF WBC CPT-4: 48627 03/13/2019 COMPREHEN METABOLIC PANEL CPT-4: 27506 03/13/2019 ROUTINE VENIPUNCTURE CPT-4: 99354 01/23/2019 LIPID PANEL CPT-4: 47464 01/23/2019 FLU VACC PRSV FREE INC ANTIG 65 AND OLDER CPT-4: 19597 12/26/2018 FLU VACC PRSV FREE INC ANTIG 65 AND OLDER CPT-4: 49965 12/26/2018 ADMIN INFLUENZA VIRUS VAC CPT-4: G0008 12/26/2018 COMPREHEN METABOLIC PANEL CPT-4: 45087 12/15/2018 ROUTINE VENIPUNCTURE CPT-4: 22616 12/15/2018 ROUTINE VENIPUNCTURE CPT-4: 45368 08/14/2018 ASSAY THYROID STIM HORMONE CPT-4: 89845 08/14/2018 COMPREHEN METABOLIC PANEL CPT-4: 73638 08/14/2018 COMPLETE CBC W/AUTO DIFF WBC CPT-4: 41830 08/14/2018 URINALYSIS NONAUTO W/O SCOPE CPT-4: 88005 05/10/2018 URINE CULTURE/ COLONY COUNT CPT-4: 44537 05/10/2018 URINE CULTURE/ COLONY COUNT CPT-4: 04803 12/06/2017 ROUTINE VENIPUNCTURE CPT-4: 08655 11/30/2017 ASSAY OF FREE THYROXINE CPT-4: 45642 11/30/2017 ASSAY THYROID STIM HORMONE CPT-4: 25766 11/30/2017 COMPLETE CBC W/AUTO DIFF WBC CPT-4: 23752 11/30/2017 METABOLIC PANEL TOTAL CA CPT-4: 63167 11/30/2017 FLU VACC PRSV FREE INC ANTIG 65 AND OLDER CPT-4: 02977 11/22/2017 ASSAY, GLUCOSE, BLOOD QUANT CPT-4: 63630 11/22/2017 ADMIN INFLUENZA VIRUS VAC CPT-4: G0008 11/22/2017 ROUTINE VENIPUNCTURE CPT-4: 67058 09/27/2017 COMPREHEN METABOLIC PANEL CPT-4: 62899 09/27/2017 COMPLETE CBC W/AUTO DIFF WBC CPT-4: 17268 09/27/2017 A1C HPLC CPT-4: 69984 09/27/2017 ASSAY OF TROPONIN QUANT CPT-4: 88187 09/27/2017 LIPID PANEL CPT-4: 37910 09/27/2017 THER/PROPH/DIAG INJ SC/IM CPT-4: 14755 05/30/2017 TRIAMCINOLONE ACET INJ NOS CPT-4: J3301 05/30/2017 URINALYSIS NONAUTO W/O SCOPE CPT-4: 30446 04/18/2017 URINE CULTURE/ COLONY COUNT CPT-4: 22743 04/18/2017 FLU VACC PRSV FREE INC ANTIG 65 AND OLDER CPT-4: 00160 12/10/2016 ADMIN INFLUENZA VIRUS VAC CPT-4: G0008 12/10/2016 ROUTINE VENIPUNCTURE CPT-4: 18468 11/01/2016 COMPREHEN METABOLIC PANEL CPT-4: 44176 11/01/2016 COMPLETE CBC W/AUTO DIFF WBC CPT-4: 44403 11/01/2016 LIPID PANEL CPT-4: 03214 11/01/2016 A1C HPLC CPT-4: 44281 11/01/2016 ASSAY THYROID STIM HORMONE CPT-4: 06630 11/01/2016 ROUTINE VENIPUNCTURE CPT-4: 69988 05/13/2016 ASSAY THYROID STIM HORMONE CPT-4: 00280 05/13/2016 COMPREHEN METABOLIC PANEL CPT-4: 18453 05/13/2016 COMPLETE CBC W/AUTO DIFF WBC CPT-4: 93974 05/13/2016 A1C HPLC CPT-4: 02677 05/13/2016 FLU VACC PRSV FREE INC ANTIG 65 AND OLDER CPT-4: 77129 12/12/2015 ADMIN INFLUENZA VIRUS VAC CPT-4: G0008 12/12/2015 ROUTINE VENIPUNCTURE CPT-4: 62522 11/25/2015 ASSAY OF FREE THYROXINE CPT-4: 49272 11/25/2015 ASSAY THYROID STIM HORMONE CPT-4: 07060 11/25/2015 COMPREHEN METABOLIC PANEL CPT-4: 40728 11/25/2015 COMPLETE CBC W/AUTO DIFF WBC CPT-4: 47319 11/25/2015 LIPID PANEL CPT-4: 19750 11/25/2015 A1C HPLC CPT-4: 70389 11/25/2015 URINALYSIS NONAUTO W/O SCOPE CPT-4: 63473 05/21/2015 ROUTINE VENIPUNCTURE CPT-4: 01373 02/19/2015 METABOLIC PANEL TOTAL CA CPT-4: 36346 02/19/2015 PRESCRIP TRANSMIT VIA ERX SY CPT-4: G8553 02/19/2015 FLU VACC PRSV FREE INC ANTIG 65 AND OLDER CPT-4: 29246 12/20/2014 ADMIN INFLUENZA VIRUS VAC CPT-4: G0008 12/20/2014 URINALYSIS NONAUTO W/O SCOPE CPT-4: 16934 11/19/2014 URINE CULTURE/ COLONY COUNT CPT-4: 04460 11/19/2014 ROUTINE VENIPUNCTURE CPT-4: 88674 11/14/2014 ASSAY OF FREE THYROXINE CPT-4: 98321 11/14/2014 ASSAY THYROID STIM HORMONE CPT-4: 10096 11/14/2014 COMPREHEN METABOLIC PANEL CPT-4: 63474 11/14/2014 COMPLETE CBC W/AUTO DIFF WBC CPT-4: 45292 11/14/2014 LIPID PANEL CPT-4: 11944 11/14/2014 A1C HPLC CPT-4: 71435 11/14/2014 CERUM REMOVAL CPT-4: 81244 09/27/2014 PRESCRIP TRANSMIT VIA ERX SY CPT-4: G8553 07/11/2014 FLUZONE, 5ML (Medicare) CPT-4: Q2038 12/21/2013 ADMIN INFLUENZA VIRUS VAC CPT-4: G0008 12/21/2013 PRESCRIP TRANSMIT VIA ERX SY CPT-4: G8553 10/17/2013 PRESCRIP TRANSMIT VIA ERX SY CPT-4: G8553 09/24/2013 PRESCRIP TRANSMIT VIA ERX SY CPT-4: G8553 05/31/2013 ROUTINE VENIPUNCTURE CPT-4: 69267 03/28/2013 ASSAY OF FREE THYROXINE CPT-4: 20016 03/28/2013 ASSAY THYROID STIM HORMONE CPT-4: 89078 03/28/2013 COMPREHEN METABOLIC PANEL CPT-4: 68421 03/28/2013 COMPLETE CBC W/AUTO DIFF WBC CPT-4: 50873 03/28/2013 LIPID PANEL CPT-4: 02122 03/28/2013 A1C HPLC CPT-4: 29101 03/28/2013 VITAMIN B 12 FOLIC ACID CPT-4: 26244|65981 03/28/2013 PRESCRIP TRANSMIT VIA ERX SY CPT-4: G8553 03/26/2013 PRESCRIP TRANSMIT VIA ERX SY CPT-4: G8553 12/19/2012 FLUZONE, 5ML (Medicare) CPT-4: Q2038 11/27/2012 ADMIN INFLUENZA VIRUS VAC CPT-4: G0008 11/27/2012 PRESCRIP TRANSMIT VIA ERX SY CPT-4: G8553 10/04/2012 PRESCRIP TRANSMIT VIA ERX SY CPT-4: G8553 07/14/2012 ROUTINE VENIPUNCTURE CPT-4: 58799 02/23/2012 ASSAY OF FREE THYROXINE CPT-4: 10501 02/23/2012 ASSAY THYROID STIM HORMONE CPT-4: 89344 02/23/2012 COMPREHEN METABOLIC PANEL CPT-4: 04702 02/23/2012 COMPLETE CBC W/AUTO DIFF WBC CPT-4: 33926 02/23/2012 LIPID PANEL CPT-4: 45897 02/23/2012 A1C GLYCOSYLATED HEMOGLOBIN TEST CPT-4: 55801 012 CERUM REMOVAL CPT-4: 12292 02/22/2012 PRESCRIP TRANSMIT VIA ERX SY CPT-4: G8553 02/22/2012 PRESCRIP TRANSMIT VIA ERX SY CPT-4: G8553 12/15/2011 FLUZONE, 5ML (Medicare) CPT-4: Q2038 12/02/2011 ADMIN INFLUENZA VIRUS VAC CPT-4: G0008 12/02/2011 ASSAY, GLUCOSE, BLOOD QUANT CPT-4: 84725 09/21/2011 URINALYSIS NONAUTO W/O SCOPE CPT-4: 73980 09/16/2011 URINE CULTURE/ COLONY COUNT CPT-4: 19896 09/16/2011 ROUTINE VENIPUNCTURE CPT-4: 25945 09/15/2011 ASSAY OF FREE THYROXINE CPT-4: 59238 09/15/2011 ASSAY THYROID STIM HORMONE CPT-4: 96400 09/15/2011 COMPREHEN METABOLIC PANEL CPT-4: 49273 09/15/2011 COMPLETE CBC W/AUTO DIFF WBC CPT-4: 52052 09/15/2011 LIPID PANEL CPT-4: 46771 09/15/2011 ASSAY OF INSULIN CPT-4: 94859 09/15/2011 A1C GLYCOSYLATED HEMOGLOBIN TEST CPT-4: 67047 012 DRAIN/INJECT JOINT/BURSA CPT-4: 47165 08/16/2011 METHYLPREDNISOLONE 40 MG INJ CPT-4: J1030 08/16/2011 TRIAMCINOLONE ACET INJ NOS CPT-4: J3301 08/16/2011 PRESCRIP TRANSMIT VIA ERX SY CPT-4: G8553 08/03/2011 PRESCRIP TRANSMIT VIA ERX SY CPT-4: G8553 07/26/2011 METHYLPREDNISOLONE 40 MG INJ CPT-4: J1030 06/28/2011 DRAIN/INJECT JOINT/BURSA CPT-4: 12670 06/28/2011 TRIAMCINOLONE ACET INJ NOS CPT-4: J3301 06/28/2011 PRESCRIP TRANSMIT VIA ERX SY CPT-4: G8553 06/28/2011 ROUTINE VENIPUNCTURE CPT-4: 25498 04/01/2011 ASSAY OF FREE THYROXINE CPT-4: 41943 04/01/2011 ASSAY THYROID STIM HORMONE CPT-4: 43593 04/01/2011 COMPREHEN METABOLIC PANEL CPT-4: 54659 04/01/2011 COMPLETE CBC W/AUTO DIFF WBC CPT-4: 46593 04/01/2011 LIPID PANEL CPT-4: 51653 04/01/2011 PRESCRIP TRANSMIT VIA ERX SY CPT-4: G8553 03/31/2011 CERUM REMOVAL CPT-4: 48108 02/11/2011 PRESCRIP TRANSMIT VIA ERX SY CPT-4: G8553 02/11/2011 FLUZONE, 5ML (Medicare) CPT-4: Q2038 12/09/2010 ADMIN INFLUENZA VIRUS VAC CPT-4: G0008 12/09/2010 PRESCRIP TRANSMIT VIA ERX SY CPT-4: G8553 10/15/2010 URINALYSIS NONAUTO W/O SCOPE CPT-4: 35631 09/29/2010 URINE CULTURE/ COLONY COUNT CPT-4: 35976 09/29/2010 CUR TOBACCO NON-USER CPT-4: G8457 09/29/2010 ROUTINE VENIPUNCTURE CPT-4: 55164 07/06/2010 COMPLETE CBC W/AUTO DIFF WBC CPT-4: 65833 07/06/2010 COMPREHEN METABOLIC PANEL CPT-4: 22966 07/06/2010 LIPID PANEL CPT-4: 93683 07/06/2010 ASSAY THYROID STIM HORMONE CPT-4: 28582 07/06/2010 ASSAY OF FREE THYROXINE CPT-4: 00477 07/06/2010 PRESCRIP TRANSMIT VIA ERX SY CPT-4: G8553 07/02/2010 INJ TRIGGER POINT 1/2 MUSCL CPT-4: 46036 04/06/2010 TRIAMCINOLONE ACET INJ NOS CPT-4: J3301 04/06/2010 METHYLPREDNISOLONE 40 MG INJ CPT-4: J1030 04/06/2010 THER/PROPH/DIAG INJ SC/IM CPT-4: 59458 04/01/2010 KETOROLAC TROMETHAMINE INJ CPT-4: J1885 04/01/2010 PRESCRIP TRANSMIT VIA ERX SY CPT-4: G8553 01/22/2010 FLU VACCINE 3 YRS & > IM UP 64 CPT-4: 23491 0 ADMIN INFLUENZA VIRUS VAC CPT-4: G0008 12/10/2009 URINALYSIS NONAUTO W/O SCOPE CPT-4: 64822 12/02/2009 URINE CULTURE/ COLONY COUNT CPT-4: 80990 12/02/2009 PRESCRIP TRANSMIT VIA ERX SY CPT-4: G8553 12/02/2009 THER/PROPH/DIAG INJ SC/IM CPT-4: 71557 09/10/2009 VITAMIN B12 INJECTION CPT-4: J3420 09/10/2009 THER/PROPH/DIAG INJ SC/IM CPT-4: 75655 08/11/2009 VITAMIN B12 INJECTION CPT-4: J3420 08/11/2009 ROUTINE VENIPUNCTURE CPT-4: 27090 06/10/2009 Vital Signs Date Vital 04/03/2019 Blood [...] 1: 142/60 Code: 8480-6 BMI: 38.2 Code: 36936-4 Heart Rate 1: 48 bpm Height: 5'2" Respiratory Rate: 20 bpm SpO2: 98% Tempera ture: 36.7 (C) / 98.1 (F) Weight: 212 lbs 01/10/2018 Blood Pressure 1: 142/64 Code: 8480-6 BMI: 38.5 Code: 36874-4 Heart Rate 1: 52 bpm Height: 5'2" Respiratory Rate: 22 bpm SpO2: 96% Tempera ture: 36.1 (C) / 96.9 (F) Weight: 214 lbs 12/06/2017 Blood Pressure 1: 124/80 Code: 8480-6 BMI: 38.3 Code: 45169-0 Heart Rate 1: 68 bpm Height: 5'2" Respiratory Rate: 20 bpm Temperature: 36 .3 (C) / 97.4 (F) Weight: 213 lbs 11/22/2017 Blood Pressure 1: 132/78 Code: 8480-6 BMI: 37.6 Code: 05322-2 Heart Rate 1: 68 bpm Height: 5'2" Respiratory Rate: 20 bpm SpO2: 97% Tempera ture: 36.8 (C) / 98.2 (F) Weight: 209 lbs 10/20/2017 Blood Pressure 1: 150/76 Code: 8480-6 BMI: 38.5 Code: 29144-9 Heart Rate 1: 64 bpm Height: 5'2" Respiratory Rate: 20 bpm SpO2: 97% Tempera ture: 36.2 (C) / 97.2 (F) Weight: 214 lbs 09/27/2017 Blood Pressure 1: 122/74 Code: 8480-6 BMI: 38.2 Code: 01383-2 Heart Rate 1: 64 bpm Height: 5'2" Respiratory Rate: 18 bpm SpO2: 96% Tempera ture: 35.8 (C) / 96.4 (F) Weight: 212 lbs 08/16/2017 Blood Pressure 1: 124/78 Code: 8480-6 BMI: 37.8 Code: 58450-8 Heart Rate 1: 76 bpm Height: 5'2" Respiratory Rate: 20 bpm Temperature: 36 .8 (C) / 98.3 (F) Weight: 210 lbs 07/07/2017 Blood Pressure 1: 136/70 Code: 8480-6 BMI: 38.0 Code: 15541-1 Heart Rate 1: 68 bpm Height: 5'2" Respiratory Rate: 20 bpm SpO2: 97% Tempera ture: 36.8 (C) / 98.2 (F) Weight: 211 lbs 05/30/2017 Blood Pressure 1: 140/65 Code: 8480-6 Heart Rate 1: 75 bpm Respiratory Rate: 24 bpm SpO2: 95% Temperature: 37.0 (C) / 98.6 (F) We ight: 211 lbs 04/18/2017 Blood Pressure 1: 154/70 Code: 8480-6 BMI: 37.6 Code: 80254-3 Heart Rate 1: 76 bpm Height: 5'2" Respiratory Rate: 20 bpm SpO2: 98% Tempera ture: 36.9 (C) / 98.5 (F) Weight: 209 lbs 10/25/2016 Blood Pressure 1: 156/70 Code: 8480-6 BMI: 37.1 Code: 11505-5 Heart Rate 1: 72 bpm Height: 5'2" Respiratory Rate: 20 bpm SpO2: 97% Tempera ture: 37.0 (C) / 98.6 (F) Weight: 206 lbs 09/20/2016 Blood Pressure 1: 152/78 Code: 8480-6 BMI: 36.8 Code: 16409-6 Heart Rate 1: 78 bpm Height: 5'2" Respiratory Rate: 20 bpm SpO2: 98% Tempera ture: 36.1 (C) / 97.0 (F) Weight: 204 lbs 05/12/2016 Blood Pressure 1: 142/70 Code: 8480-6 BMI: 36.9 Code: 98993-0 Heart Rate 1: 64 bpm Height: 5'2" [...] 1: 122/64 Code: 8480-6 BMI: 39.1 Code: 39365-1 Heart Rate 1: 76 bpm Height: 5'2" Respiratory Rate: 20 bpm Temperature: 36 .8 (C) / 98.2 (F) Weight: 217 lbs 05/21/2015 Blood Pressure 1: 144/70 Code: 8480-6 BMI: 39.4 Code: 11905-8 Heart Rate 1: 76 bpm Height: 5'2" Respiratory Rate: 20 bpm Temperature: 36 .6 (C) / 97.9 (F) Weight: 219 lbs 02/19/2015 Blood Pressure 1: 152/60 Code: 8480-6 BMI: 39.6 Code: 42340-3 Heart Rate 1: 84 bpm Height: 5'2" Respiratory Rate: 20 bpm Temperature: 37 .0 (C) / 98.6 (F) Weight: 220 lbs 11/13/2014 Blood Pressure 1: 146/76 Code: 8480-6 BMI: 39.8 Code: 86777-1 Heart Rate 1: 88 bpm Height: 5'2" Respiratory Rate: 20 bpm Temperature: 37 .0 (C) / 98.6 (F) Weight: 221 lbs 09/27/2014 Blood Pressure 1: 132/70 Code: 8480-6 BMI: 39.1 Code: 48083-5 Heart Rate 1: 88 bpm Height: 5'2" Respiratory Rate: 20 bpm Temperature: 36 .4 (C) / 97.6 (F) Weight: 217 lbs 07/11/2014 Blood Pressure 1: 132/66 Code: 8480-6 BMI: 39.9 Code: 20857-8 Heart Rate 1: 72 bpm Height: 5'2" Respiratory Rate: 20 bpm Temperature: 36 .9 (C) / 98.4 (F) Weight: 218 lbs 05/23/2014 Blood Pressure 1: 136/80 Code: 8480-6 Heart Rate 1: 76 bpm Respiratory Rate: 20 bpm Temperature: 36.7 (C) / 98.0 (F) Weight: 224 lbs 03/20/2014 Blood Pressure 1: 134/78 Code: 8480-6 BMI: 39.7 Code: 79042-8 Heart Rate 1: 84 bpm Height: 5'2" Respiratory Rate: 20 bpm Temperature: 36 .7 (C) / 98.0 (F) Weight: 217 lbs 10/17/2013 Blood Pressure 1: 146/78 Code: 8480-6 BMI: 39.5 Code: 81623-2 Heart Rate 1: 82 bpm Height: 5'2" Respiratory Rate: 18 bpm Temperature: 35 .6 (C) / 96.1 (F) Weight: 216 lbs 09/24/2013 Blood Pressure 1: 134/70 Code: 8480-6 BMI: 37.9 Code: 36732-1 Heart Rate 1: 80 bpm Height: 5'3" Respiratory Rate: 20 bpm Temperature: 36 .8 (C) / 98.2 (F) Weight: 214 lbs 05/31/2013 Blood Pressure 1: 132/70 Code: 8480-6 BMI: 37.6 Code: 09949-5 Heart Rate 1: 80 bpm Height: 5'3" Respiratory Rate: 20 bpm Temperature: 36 .8 (C) / 98.3 (F) Weight: 212 lbs 03/26/2013 Blood Pressure 1: 116/74 Code: 8480-6 Heart Rate 1: 68 bpm Respiratory Rate: 20 bpm Temperature: 36.2 (C) / 97.1 (F) Weight: 212 lbs 12/19/2012 Blood Pressure 1: 132/82 Code: 8480-6 BMI: 37.4 Code: 70520-8 Heart Rate 1: 76 bpm Height: 5'3" Respiratory Rate: 20 bpm Temperature: 36 .7 (C) / 98.0 (F) Weight: 211 lbs 12/04/2012 Blood Pressure 1: 130/76 Code: 8480-6 He art Rate 1: 78 bpm 11/27/2012 Blood Pressure 1: 140/82 Code: 8480-6 BMI: 36.8 Code: 69179-1 Heart Rate 1: 66 bpm Height: 5'3" Respiratory Rate: 20 bpm Temperature: 36 .1 (C) / 96.9 (F) Weight: 208 lbs 10/04/2012 Blood Pressure 1: 138/80 Code: 8480-6 BMI: 36.4 Code: 13613-2 Heart Rate 1: 72 bpm Height: 5'4" Respiratory Rate: 20 bpm Temperature: 36 .7 (C) / 98.0 (F) Weight: 212 lbs 07/27/2012 Blood Pressure 1: 124/70 Code: 8480-6 BMI: 36.9 Code: 77950-8 Heart Rate 1: 60 bpm Height: 5'4" Temperature: 36.1 (C) / 97.0 (F) Weight: 215 lbs 07/14/2012 Blood Pressure 1: 132/86 Code: 8480-6 BMI: 36.9 Code: 92405-8 Heart Rate 1: 76 bpm Height: 5'4" Respiratory Rate: 20 bpm Temperature: 36 .8 (C) / 98.2 (F) Weight: 215 lbs 06/08/2012 Blood Pressure 1: 134/82 Code: 8480-6 BMI: 36.6 Code: 68521-7 Heart Rate 1: 72 bpm Height: 5'4" Respiratory Rate: 20 bpm Temperature: 36 .3 (C) / 97.4 (F) Weight: 213 lbs 02/22/2012 Blood Pressure 1: 142/80 Code: 8480-6 BMI: 37.1 Code: 70537-8 Heart Rate 1: 76 bpm Height: 5'4" Respiratory Rate: 20 bpm Temperature: 36 .8 (C) / 98.3 (F) Weight: 216 lbs 12/28/2011 Blood Pressure 1: 128/68 Code: 8480-6 BMI: 37.6 Code: 67276-9 Heart Rate 1: 72 bpm Height: 5'4" [...] 1: 128/78 Code: 8480-6 BMI: 38.1 Code: 77762-7 Heart Rate 1: 84 bpm Height: 5'4" Respiratory Rate: 20 bpm Temperature: 36 .9 (C) / 98.4 (F) Weight: 222 lbs 08/16/2011 Blood Pressure 1: 138/80 Code: 8480-6 BMI: 37.9 Code: 54463-5 Heart Rate 1: 74 bpm Height: 5'4" Temperature: 36.1 (C) / 97.0 (F) Weight: 221 lbs 08/03/2011 Blood Pressure 1: 126/78 Code: 8480-6 BMI: 38.4 Code: 00705-1 Heart Rate 1: 72 bpm Height: 5'4" Respiratory Rate: 20 bpm Temperature: 36 .7 (C) / 98.0 (F) Weight: 224 lbs 07/26/2011 Blood Pressure 1: 138/72 Code: 8480-6 BMI: 38.4 Code: 98038-9 Heart Rate 1: 72 bpm Height: 5'4" Respiratory Rate: 20 bpm Temperature: 36 .6 (C) / 97.9 (F) Weight: 224 lbs 06/28/2011 Blood Pressure 1: 122/78 Code: 8480-6 BMI: 38.8 Code: 63688-0 Heart Rate 1: 88 bpm Height: 5'4" Respiratory Rate: 20 bpm Temperature: 36 .6 (C) / 97.8 (F) Weight: 226 lbs 03/31/2011 Blood Pressure 1: 116/60 Code: 8480-6 BMI: 38.1 Code: 53904-5 Heart Rate 1: 92 bpm Height: 5'4" Respiratory Rate: 20 bpm Temperature: 36 .8 (C) / 98.2 (F) Weight: 222 lbs 02/11/2011 Blood Pressure 1: 118/62 Code: 8480-6 BMI: 37.9 Code: 37390-2 Heart Rate 1: 80 bpm Height: 5'4" Temperature: 36.5 (C) / 97.7 (F) Weight: 221 lbs 10/15/2010 Blood Pressure 1: 132/70 Code: 8480-6 Heart Rate 1: 84 bpm Respiratory Rate: 20 bpm Temperature: 36.7 (C) / 98.0 (F) Weight: 221 lbs 09/29/2010 Blood Pressure 1: 114/72 Code: 8480-6 BMI: 37.6 Code: 29521-1 Heart Rate 1: 76 bpm Height: 5'4" [...] 1: 120/70 Code: 8480-6 BMI: 38.3 Code: 41666-5 Heart Rate 1: 88 bpm Height: 5'5" [...] but had more that day. While at [facility] began to feel very ill and became [...] 06/09/2009 Encounters Encounter Performer Location Codes Date ([id number]) OFFICE/OUTPATIENT VISIT EST Diagnosis: Essential (primary) hypertension[ICD10: I10] Diagnosis: Generalized anxiety disorder[ICD10: F41.1] Vikki GUAMAN [facility] CPT-4: 59911 04/03/2019 ([id number]) OFFICE/OUTPATIENT VISIT EST Diagnosis: Essential (primary) hypertension[ICD10: I10] Diagnosis: Palpitations[ICD10: R00.2] Vikki BENJAMIN [facility] CPT-4: 83595 03/20/2019 ([id number]) OFFICE/OUTPATIENT VISIT EST Diagnosis: Essential hypertension[ICD10: I10] Diagnosis: Palpitations[ICD10: R00.2] Diagnosis: Stress reaction[ICD10: F43.0] Vikki GUAMAN DO [facility] CPT-4: 26419 03/13/2019 ([id number]) NURSE/OUTPATIENT VISIT EST Diagnosis: Mixed hyperlipidemia[ICD10: E78.2] Vikki GUAMAN DO [facility] CPT-4: 06240 01/23/2019 ([id number]) NURSE/OUTPATIENT VISIT EST Diagnosis: FLU VACCINE[ICD10: Z23] Vikki BALL DO [facility] CPT-4: 50420 12/26/2018 ([id number]) NURSE/OUTPATIENT VISIT EST Diagnosis: Chronic kidney disease, stage 1[ICD10: N18.1] Vikki GUAMAN DO [facility] CPT-4: 33563 12/15/2018 ([id number]) OFFICE/OUTPATIENT VISIT EST Diagnosis: Acute serous otitis media, left ear[ICD10: H65.02] Jennifer GUAMAN DO [facility] CPT-4: 15596 11/07/2018 ([id number]) OFFICE/OUTPATIENT VISIT EST Diagnosis: Essential (primary) hypertension[ICD10: I10] Diagnosis: 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] Diagnosis: Hypoglycemia, unspecified[ICD10: E16.2] Diagnosis: Other fatigue[ICD10: R53.83] Diagnosis: Urinary tract infection, site not specified[ICD10: N39.0] Vikki GUAMAN DO [facility] CPT-4: 49434 08/14/2018 ([id number]) OFFICE/OUTPATIENT VISIT EST Diagnosis: Essential (primary) hypertension[ICD10: I10] Diagnosis: Gastro-esophageal reflux disease without esophagitis[ICD10: K21.9] Diagnosis: Urinary tract infection, site not specified[ICD10: N39.0] Vikki GUAMAN DO [facility] CPT-4: 93287 05/10/2018 ([id number]) OFFICE/OUTPATIENT VISIT EST Diagnosis: Gastro-esophageal reflux disease without esophagitis[ICD10: K21.9] Diagnosis: Epigastric pain[ICD10: R10.13] Vikki GUAMAN [employer] [facility] CPT-4: 10149 02/14/2018 ([id number]) OFFICE/OUTPATIENT VISIT EST 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] Diagnosis: Essential (primary) hypertension[ICD10: I10] Diagnosis: Generalized anxiety disorder[ICD10: F41.1] Diagnosis: Gastro-esophageal reflux disease without esophagitis[ICD10: K21.9] Vikki GUAMAN [employer] [facility] CPT-4: 37970 01/10/2018 OFFICE/OUTPATIENT VISIT EST Diagnosis: Gastro-esophageal reflux disease without esophagitis[ICD10: K21.9] Diagnosis: Palpitations[ICD10: R00.2] Diagnosis: Urinary tract infection, site not specified[ICD10: N39.0] Diagnosis: Generalized anxiety disorder[ICD10: F41.1] Vikki CID [employer] [facility] CPT-4: 43057 12/06/2017 ([id number]) NURSE/OUTPATIENT VISIT EST Diagnosis: 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] Diagnosis: Hypoglycemia, unspecified[ICD10: E16.2] Diagnosis: Dizziness and giddiness[ICD10: R42] Diagnosis: Occlusion and stenosis of bilateral carotid arteries[ICD10: I65.23] Vikki GUAMAN [employer] [facility] CPT-4: 64158 11/30/2017 OFFICE/OUTPATIENT VISIT EST Diagnosis: Epigastric pain[ICD10: R10.13] Diagnosis: Generalized anxiety disorder[ICD10: F41.1] Diagnosis: FLU VACCINE[ICD10: Z23] Vikki CID [employer] [facility] CPT-4: 35619 11/22/2017 ([id number]) OFFICE/OUTPATIENT VISIT EST Diagnosis: Essential (primary) hypertension[ICD10: I10] Diagnosis: Hypoglycemia, unspecified[ICD10: E16.2] Diagnosis: Gastro-esophageal reflux disease without esophagitis[ICD10: K21.9] Vikki GUAMAN [facility] CPT-4: 46788 10/20/2017 ([id number]) OFFICE/OUTPATIENT VISIT EST Diagnosis: Dizziness and giddiness[ICD10: R42] Jennifer GUAMAN [facility] CPT-4: 14043 09/27/2017 ([id number]) OFFICE/OUTPATIENT VISIT EST Diagnosis: Cervicalgia[ICD10: M54.2] Diagnosis: Other spondylosis with radiculopathy, cervical region[ICD10: M47.22] Vikki GUAMAN [facility] CPT-4: 76570 08/16/2017 ([id number]) OFFICE/OUTPATIENT VISIT EST Diagnosis: Hypoglycemia, unspecified[ICD10: E16.2] Diagnosis: Other spondylosis with radiculopathy, cervical region[ICD10: M47.22] Diagnosis: Vertigo of central origin, 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] Diagnosis: 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] [facility] 11403 07/07/2017 ([id number]) OFFICE/OUTPATIENT VISIT EST Diagnosis: Benign paroxysmal vertigo, bilateral[ICD10: H81.13] Diagnosis: Otalgia, bilateral[ICD10: H92.03] Jennifer GUAMAN [facility] CPT-4: 02669 05/30/2017 ([id number]) OFFICE/OUTPATIENT VISIT EST Diagnosis: Low back pain[ICD10: M54.5] Diagnosis: Radiculopathy, lumbosacral region[ICD10: M54.17] Diagnosis: Left lower quadrant pain[ICD10: R10.32] Vikki Ciscofunimlayosakshi KEELUTHER Alyssa GUAMAN ican[employer] [facility] CPT-4: 39285 04/18/2017 ([id number]) OFFICE/OUTPATIENT VISIT EST Diagnosis: FLU VACCINE[ICD10: Z23] Vikki Peckfunmilayosakshi [facility] CPT-4: 73968 12/10/2016 ([id number]) OFFICE/OUTPATIENT VISIT EST Diagnosis: Mixed hyperlipidemia[ICD10: E78.2] Diagnosis: Essential (primary) hypertension[ICD10: I10] 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] Diagnosis: Impaired fasting glucose[ICD10: R73.01] Diagnosis: Other fatigue[ICD10: R53.83] Vikki GUAMAN [facility] CPT-4: 57975 11/01/2016 ([id number]) OFFICE/OUTPATIENT VISIT EST Diagnosis: Pain in thoracic spine[ICD10: M54.6] Diagnosis: Other intervertebral disc degeneration, 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] Vikki GUAMAN [facility] CPT-4: 09239 10/25/2016 ([id number]) OFFICE/OUTPATIENT VISIT EST Diagnosis: Left lower quadrant pain[ICD10: R10.32] Diagnosis: Low back pain[ICD10: M54.5] Vikki RUBI [facility] CPT-4: 01429 09/20/2016 ([id number]) OFFICE/OUTPATIENT VISIT EST Diagnosis: Mixed hyperlipidemia[ICD10: E78.2] Diagnosis: Essential (primary) hypertension[ICD10: I10] Diagnosis: Hypoglycemia, unspecified[ICD10: E16.2] Vikki GUAMAN [facility] CPT-4: 52937 05/13/2016 ([id number]) OFFICE/OUTPATIENT VISIT EST Diagnosis: Impaired fasting glucose[ICD10: R73.01] Diagnosis: Mastodynia[ICD10: N64.4] Diagnosis: Mixed hyperlipidemia[ICD10: E78.2] Diagnosis: Essential (primary) hypertension[ICD10: I10] Diagnosis: Other fatigue[ICD10: R53.83] Vikki GUAMAN [facility] CPT-4: 32948 05/12/2016 ([id number]) OFFICE/OUTPATIENT VISIT EST Diagnosis: Acute upper respiratory infection, unspecified[ICD10: J06.9] Yue Moya VIKKI GUAMAN [facility] CPT-4: 83897 03/18/2016 ([id number]) OFFICE/OUTPATIENT VISIT EST Diagnosis: Acute mastoiditis without complications, right ear[ICD10: H70.001] Vikki Deniz GUAMAN [facility] CPT-4: 76068 02/06/2016 ([id number]) OFFICE/OUTPATIENT VISIT EST Diagnosis: FLU VACCINE[ICD10: Z23] Vikki BALL [facility] CPT-4: 30178 12/12/2015 ([id number]) OFFICE/OUTPATIENT VISIT EST Diagnosis: Mixed hyperlipidemia[ICD10: E78.2] Diagnosis: Essential (primary) hypertension[ICD10: I10] 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] Diagnosis: Impaired fasting glucose[ICD10: R73.01] Vikki KEELUTHER Alyssa GAUMAN DO [facility] CPT-4: 93258 11/25/2015 ([id number]) OFFICE/OUTPATIENT VISIT EST Diagnosis: Constipation, unspecified[ICD10: K59.00] Vikki GUAMAN DO [facility] CPT-4: 36597 08/26/2015 ([id number]) OFFICE/OUTPATIENT VISIT EST Diagnosis: Essential (primary) hypertension[ICD10: I10] Diagnosis: Mixed hyperlipidemia[ICD10: E78.2] Diagnosis: Chronic kidney disease, stage 1[ICD10: N18.1] Vikki GUAMAN [facility] CPT-4: 67540 05/21/2015 ([id number]) OFFICE/OUTPATIENT VISIT EST Diagnosis: Muscle weakness (generalized)[ICD10: M62.81] Diagnosis: Dizziness and giddiness[ICD10: R42] Diagnosis: Essential (primary) hypertension[ICD10: I10] Diagnosis: History of falling[ICD10: Z91.81] Vikkiluther KEARNEYJEANNA GUAMAN [facility] CPT-4: 99734 02/19/2015 ([id number]) OFFICE/OUTPATIENT VISIT EST Diagnosis: FLU VACCINE[ICD10: Z23] Vikki Peckbhavya VIKKI Alyssa BALL [facility] CPT-4: 39267 12/20/2014 ([id number]) OFFICE/OUTPATIENT VISIT EST Diagnosis: Acute renal failure[ICD9: 584.9] Diagnosis: POLYURIA[ICD9: 788.42] Vikkiluther KEARNEYQUELINE AlejandraSujata MATY Rees [facility] CPT-4: 95359 11/19/2014 ([id number]) OFFICE/OUTPATIENT VISIT EST Diagnosis: HYPERLIPIDEMIA NEC/NOS[ICD9: 272.4] Diagnosis: HYPERTENSION[ICD9: 401.9] Diagnosis: CAD[ICD9: 414.00] Diagnosis: Hyperglycemia[ICD9: 790.29] Diagnosis: MALAISE AND FATIGUE[ICD9: 780.79] Vikki GUAMAN [employer] [facility] CPT-4: 03128 11/14/2014 ([id number]) OFFICE/OUTPATIENT VISIT EST Diagnosis: MALAISE AND FATIGUE[ICD9: 780.79] Diagnosis: HYPOGLYCEMIA[ICD9: 251.2] Diagnosis: Grieving[ICD9: 309.0] Diagnosis: ABDOMINAL PAIN[ICD9: 789.00] Vikki GUAMAN [employer] [facility] CPT-4: 75694 11/13/2014 OFFICE/OUTPATIENT VISIT EST Diagnosis: CERUMEN IMPACTION[ICD9: 380.4] Diagnosis: EUSTACHIAN TUBE DYSFUNCTION[ICD9: 381.81] Jessenia Penny VIKKI GUAMAN [employer] [facility] CPT-4: 85798 09/27/2014 ([id number]) OFFICE/OUTPATIENT VISIT EST Diagnosis: Leg pain[ICD9: 729.5] Diagnosis: SUPERFIC PHLEBITIS-LEG[ICD9: 451.0] Vikki GUAMAN [employer] [facility] CPT-4: 89206 07/11/2014 ([id number]) OFFICE/OUTPATIENT VISIT EST Diagnosis: Thoracic back pain[ICD9: 724.1] Diagnosis: SPASM OF MUSCLE[ICD9: 728.85] Vikki GUAMAN [employer] [facility] CPT-4: 50626 05/23/2014 ([id number]) OFFICE/OUTPATIENT VISIT EST Diagnosis: DIZZINESS/VERTIGO[ICD9: 780.4] Diagnosis: Benign positional vertigo[ICD9: 386.11] Diagnosis: HYPERTENSION[ICD9: 401.9] Diagnosis: Suspicious nevus[ICD9: 238.2] Vikki GUAMAN [employer] [facility] CPT-4: 66732 03/20/2014 ([id number]) OFFICE/OUTPATIENT VISIT EST Diagnosis: FLU VACCINE[ICD10: Z23] Vikki [facility] CPT-4: 84582 12/21/2013 OFFICE/OUTPATIENT VISIT EST Diagnosis: SINUSITIS, ACUTE[ICD9: 461.9] Diagnosis: EUSTACHIAN TUBE DYSFUNCTION[ICD9: 381.81] Jessenia [facility] CPT-4: 93502 10/17/2013 ([id number]) OFFICE/OUTPATIENT VISIT EST Diagnosis: DIZZINESS/VERTIGO[ICD9: 780.4] Diagnosis: HYPERTENSION[ICD9: 401.9] Vikki PECK [facility] CPT-4: 19109 09/24/2013 ([id number]) OFFICE/OUTPATIENT VISIT EST Diagnosis: HYPERTENSION[ICD9: 401.9] Diagnosis: MALAISE AND FATIGUE[ICD9: 780.79] Diagnosis: SINUSITIS, ACUTE[ICD9: 461.9] Vikki [facility] CPT-4: 22026 05/31/2013 ([id number]) OFFICE/OUTPATIENT VISIT EST Diagnosis: HYPERLIPIDEMIA NEC/NOS[ICD9: 272.4] Diagnosis: HYPERTENSION[ICD9: 401.9] Diagnosis: B12 DEFIC ANEMIA NEC[ICD9: 281.1] Diagnosis: HYPOGLYCEMIA[ICD9: 251.2] [facility]: 35085 03/28/2013 OFFICE/OUTPATIENT VISIT EST Diagnosis: COUGH[ICD9: 786.2] Jessenia [facility] CPT-4: 00653 03/26/2013 OFFICE/OUTPATIENT VISIT EST Diagnosis: COUGH[ICD9: 786.2] Diagnosis: URI, ACUTE[ICD9: 465.9] Jessenia [facility] CPT-4: 63624 12/19/2012 ([id number]) OFFICE/OUTPATIENT VISIT EST Diagnosis: HYPERTENSION[ICD9: 401.9] Diagnosis: CEPHALGIA[ICD9: 784.0] Diagnosis: ANXIETY STATE NOS[ICD9: 300.00] Diagnosis: FLU VACCINE[ICD9: V04.81] Vikki VENEGASR [facility] CPT-4: 23200 11/27/2012 ([id number]) OFFICE/OUTPATIENT VISIT EST Diagnosis: DIZZINESS/VERTIGO[ICD9: 780.4] Diagnosis: SINUSITIS, ACUTE[ICD9: 461.9] Diagnosis: Benign positional vertigo[ICD9: 386.11] Vikki GUAMAN [facility] CPT-4: 71388 10/04/2012 OFFICE/OUTPATIENT VISIT EST Diagnosis: OTITIS MEDIA NOS[ICD9: 382.9] Vikki GUAMAN [facility] CPT-4: 36450 07/27/2012 OFFICE/OUTPATIENT VISIT EST Diagnosis: Perforation of ear drum[ICD9: 384.20] Diagnosis: SINUSITIS, ACUTE[ICD9: 461.9] Vikki GUAMAN [facility] CPT-4: 07937 07/14/2012 ([id number]) OFFICE/OUTPATIENT VISIT EST Diagnosis: Mastalgia[ICD9: 611.71] Vikki [facility] CPT-4: 58663 06/08/2012 ([id number]) OFFICE/OUTPATIENT VISIT EST Diagnosis: HYPERLIPIDEMIA NEC/NOS[ICD9: 272.4] Diagnosis: HYPERTENSION[ICD9: 401.9] Diagnosis: DIZZINESS/VERTIGO[ICD9: 780.4] Diagnosis: Hyperglycemia[ICD9: 790.29] Diagnosis: MALAISE AND FATIGUE[ICD9: 780.79] Vikki [facility] CPT-4: 38200 02/23/2012 ([id number]) OFFICE/OUTPATIENT VISIT EST Diagnosis: EUSTACHIAN TUBE DYSFUNCTION[ICD9: 381.81] Diagnosis: DIZZINESS/VERTIGO[ICD9: 780.4] Diagnosis: ABDOMINAL PAIN[ICD9: 789.00] Diagnosis: GERD[ICD9: 530.81] Diagnosis: CERUMEN IMPACTION[ICD9: 380.4] Vikki GUAMAN [facility] CPT-4: 40466 02/22/2012 OFFICE/OUTPATIENT VISIT EST Diagnosis: ABDOMINAL PAIN[ICD9: 789.00] Diagnosis: DYSPEPSIA[ICD9: 536.8] Vikki Rees [facility] CPT-4: 69834 12/28/2011 ([id number]) OFFICE/OUTPATIENT VISIT EST Diagnosis: ABDOMINAL PAIN[ICD9: 789.00] Diagnosis: DYSPEPSIA[ICD9: 536.8] Diagnosis: IBS[ICD9: 564.1] Vikki GUAMAN [facility] CPT - 4: 24084 12/15/2011 OFFICE/OUTPATIENT VISIT EST Diagnosis: DIZZINESS/VERTIGO[ICD9: 780.4] Diagnosis: HYPOGLYCEMIA[ICD9: 251.2] Vikki MARTINEZ [facility] CPT-4: 27832 09/21/2011 ([id number]) OFFICE/OUTPATIENT VISIT EST Diagnosis: URINARY TRACT INFECTION[ICD9: 599.0] Vikki GUAMAN [facility] CPT-4: 94948 09/16/2011 ([id number]) OFFICE/OUTPATIENT VISIT EST Diagnosis: HYPERLIPIDEMIA NEC/NOS[ICD9: 272.4] Diagnosis: HYPERTENSION[ICD9: 401.9] Diagnosis: MALAISE AND FATIGUE[ICD9: 780.79] Diagnosis: DIZZINESS/VERTIGO[ICD9: 780.4] Vikki GUAMAN [facility] CPT-4: 02794 09/15/2011 ([id number]) OFFICE/OUTPATIENT VISIT EST Diagnosis: DIZZINESS/VERTIGO[ICD9: 780.4] Diagnosis: MALAISE AND FATIGUE[ICD9: 780.79] Diagnosis: HYPERTENSION[ICD9: 401.9] Vikki MARTINEZ [facility] CPT-4: 68496 09/13/2011 OFFICE/OUTPATIENT VISIT EST Diagnosis: LUMB/LUMBOSAC DISC DEGEN[ICD9: 722.52] Diagnosis: Radiculopathy of leg[ICD9: 724.4] Diagnosis: 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] Diagnosis: SPINAL ENTHESOPATHY[ICD9: 720.1] Vikki GUAMAN [facility] CPT-4: 72695 08/16/2011 ([id number]) OFFICE/OUTPATIENT VISIT EST Diagnosis: PAIN, LOWER BACK[ICD9: 724.2] Diagnosis: SPASM OF MUSCLE[ICD9: 728.85] Diagnosis: SCIATICA[ICD9: 724.3] Diagnosis: Lumbar degenerative disc disease[ICD9: 722.52] Vikki GUAMAN [facility] CPT-4: 53174 08/03/2011 ([id number]) OFFICE/OUTPATIENT VISIT EST Diagnosis: PAIN IN THORACIC SPINE[ICD9: 724.1] Diagnosis: SPASM OF MUSCLE[ICD9: 728.85] Vikki GUAMAN [facility] CPT-4: 82617 07/26/2011 ([id number]) OFFICE/OUTPATIENT VISIT EST Diagnosis: PAIN, LOWER BACK[ICD9: 724.2] Diagnosis: SPASM OF MUSCLE[ICD9: 728.85] Diagnosis: Sacroiliac dysfunction[ICD9: 739.4] Diagnosis: Lumbar degenerative disc disease[ICD9: 722.52] Vikki GUAMAN [facility] CPT-4: 88397 06/28/2011 OFFICE/OUTPATIENT VISIT EST Diagnosis: MALAISE AND FATIGUE[ICD9: 780.79] Diagnosis: HYPOTENSION[ICD9: 458.9] Diagnosis: CAD[ICD9: 414.00] Vikki GUAMAN [facility] CPT-4: 87167 03/31/2011 OFFICE/OUTPATIENT VISIT EST Diagnosis: SINUSITIS, ACUTE[ICD9: 461.9] Diagnosis: PHARYNGITIS, ACUTE[ICD9: 462] Diagnosis: CERUMEN IMPACTION[ICD9: 380.4] Vikki GUAMAN [facility] CPT-4: 01671 02/11/2011 OFFICE/OUTPATIENT VISIT EST Diagnosis: PAIN IN THORACIC SPINE[ICD9: 724.1] Diagnosis: GERD[ICD9: 530.81] Diagnosis: DIZZINESS/VERTIGO[ICD9: 780.4] Vikki GUAMAN [facility] CPT-4: 90566 10/15/2010 OFFICE/OUTPATIENT VISIT EST Vikki MARTINEZ [facility] CPT- 4: 30492 09/29/2010 ([id number]) OFFICE/OUTPATIENT VISIT EST Vikki [facility] CPT-4: 75608 07/02/2010 ([id number]) OFFICE/OUTPATIENT VISIT, EST Diagnosis: PAIN, LOWER BACK[ICD9: 724.2] Vikki [facility] CPT-4: 58727 04/06/2010 ([id number]) OFFICE/OUTPATIENT VISIT, EST Vikki [facility] CPT-4: 46172 04/01/2010 ([id number]) OFFICE/OUTPATIENT VISIT, EST Vikki [facility] CPT-4: 18350 01/22/2010 ([id number]) OFFICE/OUTPATIENT VISIT, EST Vikki [facility] CPT-4: 06769 12/02/2009 ([id number]) OFFICE/OUTPATIENT VISIT, EST Vikki [facility] CPT-4: 67242 10/21/2009 ([id number]) OFFICE/OUTPATIENT VISIT, EST Vikki [facility] CPT-4: 00420 09/10/2009 ([id number]) OFFICE/OUTPATIENT VISIT, EST Vikki [facility] CPT-4: 65569 08/11/2009 ([id number]) OFFICE/OUTPATIENT VISIT, EST Vikki [facility] CPT-4: 01615 06/09/2009 Plan of Care Planned Activity Notes Codes Status Date Visit Diagnosis Plan: Generalized anxiety disorder Dis cussion: Stable ICD-9 : 300.00 ICD-10 : F41.1 04/03/2019 Visit Diagnosis Plan: Essential (primary) hypertension Discussion: Stable Follow Up: 1 months ICD-9 : 401.9 ICD-10 : I10 04/03/2019 Patient Education: metoprolol tartrate- [employer] [facility] [id number] https://www.[employer]/samplemd/resources/getResource/61/088k3fzh-[email or web address]-20t7-1x Completed 04/03/2019 Visit Diagnosis Plan: Essential (primary) hypertension Discussion: Improving with higher dose of metoprolol Recheck 2weeks ICD-9 : 401.9 ICD-10 : I10 03/20/2019 Visit Diagnosis Plan: Palpitations Discussion: Continu e higher dose of metoprolol ICD-9 : 785.1 ICD-10 : R00.2 03/20/2019 Appointment: Vikki Guamantel: [address] [place] [address] FOLLOW UP 03/20/2019 Appointment: Vikki Guamantel: [address] [place] [address] 03/13/2019--moved up to [facility] 03/13/19 at 4pm (km) [place] 03/15/2019 Visit Diagnosis Plan: Palpitations Discussion: Check C BC, CMP, TSH ICD-9 : 785.1 ICD-10 : R00.2 03/13/2019 Visit Diagnosis Plan: Essential hypertension Discussio n: Increase metoprolol to 25mg q AM and 50mg po q pM Recheck 1 week ICD-9 : 401.9 ICD-10 : I10 03/13/2019 Appointment: Vikki Guamantel: [address] [place] [address] BP CHECK 03/13/2019 Appointment: Vikki Guamantel: [address] [place] [address] ACUTE ILLNESS 03/13/2019 Patient Education: metoprolol tartrate- [employer] [facility] [id number] https://www.[employer].com/samplemd/resources/getResource/61/3m471048-3977-7r34-5i Completed 03/13/2019 Care Plan: X-RAY EXAM NECK SPINE 4/5VWS LOINC : 43251-3 Pending 03/13/2019 Care Plan: X-RAY EXAM THORAC SPINE4/>VW LOINC : 90453-8 Pending 03/13/2019 Appointment: Vikki Guamanl: [address] [place], [place] [phone] [place] LAB 01/23/2019 Appointment: Vikki Guaman WPtel: [address] [place], [place] [phone] [place] INJECTION 12/26/2018 Patient Education: INFLUENZA VACCINE CDC Completed 12/26/2018 Appointment: Vikki Guaman WPtel: [address] [place], [place] [phone] 12/15/2018 Visit Diagnosis Plan: Acute [...] ICD-10 : H65.02 11/07/2018 Appointment: Jennifer Rosario [address] [place] [address] ACUTE ILLNESS 11/07/2018 Visit Diagnosis Plan: Urinary [...] : R53.83 08/14/2018 Appointment: Vikki Guaman WPtel: [address] [place] [address] FOLLOW UP 08/14/2018 Visit Diagnosis Plan: Essential [...] : K21.9 05/10/2018 Appointment: Vikki Guaman WPtel: [address] [place], [place] [phone] [place] FOLLOW UP 05/10/2018 Patient Education: metoprolol tartrate- [employer] [facility] [id number] https://www.[employer]/resources/getResource/61/405i3n83-7ait-88dl-48 Completed 05/10/2018 Appointment: Vikki Guaman WPtel: [address] [place], [place] [phone] [place] CANCELED 04/21/2018 Visit Diagnosis Plan: Gastro-esophageal reflux disease without esophagitis Discussion: Continue protonix and carafate Proceed with updated EGD ICD-9 : 530.81 ICD-10 : K21.9 02/14/2018 Visit Diagnosis Plan: Epigastric pain Discussion: [facility] CT abdomen/pelvis due to ongoing abdominal pain ICD-9 : 789.06 ICD-10 : R10.13 02/14/2018 Appointment: Vikki Guaman WPtel: [address] [place], [place] [id number] [place] FOLLOW UP 02/14/2018 Care Plan: CT PELVIS W/O DYE LOINC : 361 08-9 Pending 02/14/2018 Care Plan: CT ABDOMEN W/O DYE LOINC : 36 103-0 Pending 02/14/2018 Care Plan: Referral Order SNOMED-CT : 30 [id number] Pending 02/14/2018 Visit Diagnosis Plan: Atherosclerotic he art disease of gambell coronary artery without angina pectoris Discussion: S/P [...] ICD-10 : I10 01/10/2018 Appointment: Vikki Guamantel: [address] [place], [place] [phone] FOLLOW UP 01/10/2018 Visit Diagnosis Plan: Gastro-esophageal [...] ICD-10 : R00.2 12/06/2017 Appointment: Vikki Guamanl: [address] [place], [place] [id number] FOLLOW UP 12/06/2017 Patient Education: Patient Medication Summary Completed 12/06/2017 Appointment: Vikki Guamantel: [address] [place], [place] [phone] [place] LAB 11/30/2017 Patient Education: Patient Medication [...] : F41.1 11/22/2017 Appointment: Vikki Guaman WPtel: [address] [place] [address] FOLLOW UP 11/22/2017 Patient Education: Patient Medication [...] : K21.9 10/20/2017 Appointment: Vikki Guaman WPtel: [address] [place] [address] ACUTE ILLNESS 10/20/2017 Patient Education: Patient Medication Summary Completed 10/20/2017 Visit Diagnosis Plan: Dizziness and giddiness Discussi on: blood work to be completed in office including cmp, cbc, troponin to rule out glucose intolerance, infection, dehydration. instructed patient that she needs to see her engine wiper sooner than oct and patient requested we contact dr. brown's office. will have front office make appt. patient has carotid doppler annually. ICD-9 : 780.4 ICD-10 : R42 09/27/2017 Appointment: Jennifer Rosario [address] [place] [address] ACUTE ILLNESS 09/27/2017 Patient Education: Patient Medication Summary Completed 09/27/2017 Visit Diagnosis Plan: Cervicalgia Discussion: Complete course of PT since symptoms improved Continue stretching exercises Notify if symptoms return or worsen ICD-9 : 723.1 ICD-10 : M54.2 08/16/2017 Appointment: Vikki Guaman WPtel: [address] [place] [address] FOLLOW UP 08/16/2017 Patient Education: Patient Medication [...] : H81.43 07/07/2017 Appointment: Vikki Guaman WPtel: [facility] [address] 07/07/2017 Patient Education: Patient Medication Summary Completed 07/07/2017 Care Plan: MRI NECK SPINE W/O DYE LOINC : 40281-1 Pending 07/07/2017 Visit Diagnosis Plan: Otalgia, bilateral [...] ICD-10 : H81.13 05/30/2017 Appointment: Jennifer Rosario [address] [place] [address] ACUTE ILLNESS 05/30/2017 Patient Education: Patient Medication [...] : M54.17 04/18/2017 Appointment: Vikki Guaman WPtel: [address] [place], [place] [phone] ACUTE ILLNESS 04/18/2017 Patient Education: Patient Medication Summary Completed 04/18/2017 Appointment: Vikki Guaman WPtel: [address] [place], [place] [phone] [place] INJECTION 12/10/2016 Patient Education: Patient Medication Summary Completed 12/10/2016 Appointment: Vikki Guaman WPtel: [address] [place], [place] [phone] LAB 11/01/2016 Patient Education: Patient Medication Summary [...] : M51.36 10/25/2016 Appointment: Vikki Guaman WPtel: [facility] FOLLOW UP 10/25/2016 Patient Education: Patient Medication [...] : R10.32 09/20/2016 Appointment: Vikki Guaman WPtel: [address] [place], [place] [phone] ACUTE ILLNESS 09/20/2016 Patient Education: Patient Medication Summary Completed 09/20/2016 Appointment: Vikki Guaman WPtel: [address] [place], [place] [phone] 05/13/2016 Patient Education: Patient Medication [...] : N64.4 05/12/2016 Appointment: Vikki Guaman WPtel: [address] [place], [place] [phone] 3/7 confirmed `sl ACUTE ILLNESS 05/12/2016 Patient Education: Patient Medication Summary Completed 05/12/2016 Care Plan: MAMMOGRAM SCREENING LOINC : 2 6347-5 Pending 05/12/2016 Visit Diagnosis Plan: Acute upper respiratory infectio n, unspecified Discussion: Exam is reassuring Likely viral illness Supportive care reviewed and encouraged Follow up PRN ICD-9 : 465.9 ICD-10 : J06.9 03/18/2016 Appointment: Yue Moya [address] [place], [place] [phone] ACUTE ILLNESS 03/18/2016 Patient Education: Patient Medication Summary Completed 03/18/2016 Visit Plan: Supportive care. Rest, Fluid s, Tylenol/Motrin prn fever or bodyaches. Notify if worsening symptoms. 02/06/2016 Appointment: Vikki Guaman WPtel: [address] [place] [address] ACUTE ILLNESS 02/06/2016 Patient Education: Patient Medication Summary Completed 02/06/2016 Appointment: Vikki Guaman WPtel: [address] [place], [place] [phone] [place] INJECTION 12/12/2015 Patient Education: Patient Medication Summary Completed 12/12/2015 Appointment: Vikki Guaman WPtel: [address] [place], [place] [phone] US LAB 11/25/2015 Patient Education: Patient Medication Summary Completed 11/25/2015 Visit Plan: Add miralax daily Use daily probiotic and metamucil and push fluids Notify if worsens/persists 08/26/2015 Appointment: Vikki Guaman WPtel: [address] [place] [address] 08/25/15 confirmed ~sl ACUTE ILLNESS 08/26/2015 Patient Education: Patient Medication Summary Completed 08/26/2015 Visit Plan: No NSAIDs Kidney function di scussed Discussed hydration Monitor lab every 4months so will check CMP, HbA1C next month 05/21/2015 Appointment: Vikki Guaman WPtel: [address] [place] [address] 05/19 confirmed ~sl ACUTE ILLNESS 05/21/2015 Patient Education: Patient Medication Summary Completed 05/21/2015 Visit Plan: Vestibular exercises Refill flonase Strict low Na diet--discussed that needs to read labels Rx for walker with chair given due to muscle weakness/unsteadiness Has carotids and abdominal aorta and legs checked in March Check Chem 7 02/19/2015 Appointment: Vikki Guaman WPtel: [address] [place] [address] 02/18/15 appt confirmed cn FOLLOW UP 02/19 Patient Education: Patient Medication Summary Completed 02/19/2015 Patient Education: Vertigo Completed 1 04/22/2014 Appointment: Vikki Guaman WPtel: [address] [place], [place] [phone] [place] INJECTION 12/20/2014 Patient Education: Patient Medication Summary Completed 12/20/2014 Appointment: Vikki Guaman WPtel: [address] [place], [place] [phone] US UA 11/19/2014 Patient Education: Patient Medication Summary Completed 11/19/2014 Referral: Edy Cheek WPtel: #1 [facility] Ronny Hoyt [id number] US Referral Completed 11/18/2014 Appointment: Vikki Guaman WPtel: [address] [place] [address] LAB 11/14/2014 Patient Education: Patient Medication Summary Completed 11/14/2014 Visit Plan: Check CMP, CBC, TSH, Free T4 , B12, Lipids, HbA1C Discussed 6 small meals a day each with protein Would likely benefit from antidepressant Update colonoscopy 11/13/2014 Appointment: Vikki Guaman WPtel: [address] [place] [address] 11/12/14 confirmed ACUTE ILLNESS 11/13/2014 Patient Education: Patient Medication Summary Completed 11/13/2014 Visit Plan: Cerumen flush with warm wate r and peroxide - good results Resume Nasonex nasal spray daily Recommended Debrox earwax removal drops 09/27/2014 Appointment: Jessenia Francis WPtel: [address] [place] [address] ACUTE ILLNESS 09/27/2014 Patient Education: Patient Medication Summary Completed 09/27/2014 Visit Plan: Continue aspirin daily Add m eloxicam for 1week Elevate and Ice Call on Tuesday07/11/2014 Appointment: Vikki Guaman WPtel: [address] [place] [address] ACUTE ILLNESS 07/11/2014 Patient Education: Patient Medication Summary Completed 07/11/2014 Visit Plan: Been using baclofen at [facility] and has helped some PT for next 2-4weeks 05/23/2014 Appointment: Vikki Guaman WPtel: [address] [place], [place] [phone] [place] [address] Follow Up 05/23/2014 Patient Education: Patient Medication Summary Completed 05/23/2014 Appointment: Vikki Guaman WPtel: [address] [place], [place] [phone] 05/10/2014 Appointment: Vikki Guaman WPtel: [address] [place], [place] [phone] feeling better, weather - FOLLOW UP 04/07 Referral: Edy Cheek WPtel: #1 [facility] [place] Antwan Borges [id number] [place] Referral Appointment Requested 04/03/2014 Visit Plan: Continue exercise and curren t meds See surgery for removal of right arm lesion 03/20/2014 Appointment: Vikki Guaman WPtel: [address] [place], [place] [phone] FOLLOW UP 03/20/2014 Patient Education: Patient Medication Summary Completed 03/20/2014 Appointment: Vikki Guaman WPtel: [address] [place], [place] [phone] INJECTION 12/21/2013 Patient Education: Patient Medication Summary Completed 12/21/2013 Appointment: Jessenia Francis WPtel: [address] [place], [place] [phone] ACUTE ILLNESS 10/17/2013 Patient Education: Patient Medication Summary Completed 10/17/2013 Visit Plan: Discussed that likely lumbar etiology for leg weakness Will change amlodopine to low dose dyazide and see if helps legs and inner ear 09/24/2013 Appointment: Vikki Guaman WPtel: [address] [place], [place] [phone] FOLLOW UP 09/24/2013 Patient Education: Patient Medication Summary Completed 09/24/2013 Visit Plan: Ceftin and continue claritin /flonase Decrease amlodopine to 2.5mg q HS until fwup with Card due to weakness 05/31/2013 Appointment: Vikki Guaman WPtel: [address] [place] [address] ACUTE ILLNESS 05/31/2013 Patient Education: Patient Medication Summary Completed 05/31/2013 Appointment: Vikki Guaman WPtel: [address] [place] [address] LAB 03/28/2013 Patient Education: Patient Medication Summary Completed 03/28/2013 Appointment: Jessenia Francis WPtel: [address] [place] [address] ACUTE ILLNESS 03/26/2013 Patient Education: Patient Medication Summary Completed 03/26/2013 Visit Plan: Supportive care. Rest, Fluid s, Tylenol prn fever or bodyaches. Notify if worsening symptoms. Ceftin 12/19/2012 Appointment: Jessenia Francis WPtel: [address] [place] [address] ACUTE ILLNESS 12/19/2012 Patient Education: Patient Medication Summary Completed 12/19/2012 Appointment: Vikki Guaman WPtel: [address] [place] [address] BP CHECK 12/04/2012 Patient Education: Patient Medication Summary Completed 12/04/2012 Appointment: Vikki Guaman WPtel: [address] [place] [address] ER Follow UP 11/27/2012 Patient Education: Patient Medication Summary Completed 11/27/2012 Visit Plan: Restart flonase BID Use mecl izine 25mg q HS Vestibular exercises Claritin 10mg q AM See ENT if doesn't resolve 10/04/2012 Appointment: Vikki Guaman WPtel: [address] [place] [address] ACUTE ILLNESS 10/04/2012 Patient Education: Patient Medication Summary Completed 10/04/2012 Visit Plan: Will continue to observe 07/27/2012 Appointment: Vikki Guaman WPtel: [address] [place] [address] FOLLOW UP 07/27/2012 Patient Education: Patient Medication [...] ear recheck. 07/14/2012 Appointment: Evelyn Santos WPtel: [address] [place] [address] ACUTE ILLNESS 07/14/2012 Patient Education: Patient Medication Summary Completed 07/14/2012 Visit Plan: Decrease caffeine intake Kristin ck Bilateral Mammogram with US of left breast 06/08/2012 Appointment: Vikki Guaman WPtel: [address] [place] [address] ACUTE ILLNESS 06/08/2012 Patient Education: Patient Medication Summary Completed 06/08/2012 Appointment: Alisia Campbell WPtel: [address] [place] [address] appt scheduled 04/06 ACUTE ILLNESS 04/10/2012 Appointment: Vikki Guaman WPtel: [address] [place] [address] US LAB 02/23/2012 Patient Education: Patient Medication Summary Completed 02/23/2012 Visit Plan: Continue off carafate and se e how does Continue probiotic Add Vestibular exercises and use meclizine prn Continue Nasonex Check fasting lab including CMP, Lipids, CBC, TSH, Free T4, HbA1C 02/22/2012 Appointment: Vikki Guaman WPtel: [address] [place] [address] FOLLOW UP 02/22/2012 Patient Education: Patient Medication Summary Completed 02/22/2012 Visit Plan: Continue carafate for 4more weeks at current dose then decrease to BID for 2wks then q HS 12/28/2011 Appointment: Vikki Guamantel: [address] [place] [address] FOLLOW UP 12/28/2011 Patient Education: Patient Medication Summary Completed 12/28/2011 Visit Plan: Continue omeprazole Add Judi fate 1gm po q AC Add daily probiotic 12/15/2011 Appointment: Vikki Guaman WPtel: [address] [place] [address] ACUTE ILLNESS 12/15/2011 Patient Education: Patient Medication Summary Completed 12/15/2011 Appointment: Vikki Guamantel: [address] [place] [address] US INJECTION 12/02/2011 Patient Education: Patient Medication Summary Completed 12/02/2011 Visit Plan: Diabetic Diet Accuchecks BID alternating times Hold onglyza and Januvia for now and continue diet and exercise and weight loss and moniter BS Discussed hypoglycemia and snack of peanut butter and crackers with juice or milk 09/21/2011 Appointment: Vikki Guamantel: [address] [place] [address] WORK IN 09/21/2011 Patient Education: Patient Medication Summary Completed 09/21/2011 Appointment: Vikki Guamantel: [address] [place], [place] [id number] UA 09/16/2011 Patient Education: Patient Medication Summary Completed 09/16/2011 Appointment: Vikki Guamantel: [address] [place], [place] [id number] LAB 09/15/2011 Patient Education: Patient Medication Summary Completed 09/15/2011 Appointment: Vikki Guamantel: [address] [place], [place] [id number] ACUTE ILLNESS 09/13/2011 Patient Education: Patient Medication Summary Completed 09/13/2011 Visit Plan: Injection to Right SI joint as above Pt will call in 3 days on pain Has PT starting in 2wks. 08/16/2011 Appointment: Vikki Guamantel: [address] [place] [address] ACUTE ILLNESS 08/16/2011 Patient Education: Patient Medication Summary Completed 08/16/2011 Visit Plan: OMT done Start PT May need u pdated MRI if need to consider epidural Prednisone 08/03/2011 Appointment: Vikki Guaman WPtel: [address] [place] [address] OMT 08/03/2011 Patient Education: Patient Medication Summary Completed 08/03/2011 Visit Plan: Flexeril and Vimovo OMT done Daily stretches 07/26/2011 Appointment: Vikki Guaman WPtel: [address] [place] [address] ACUTE ILLNESS 07/26/2011 Patient Education: Patient Medication Summary Completed 07/26/2011 Visit Plan: OMT done Daily stretches Roque st heat or biofreeze Right SI joint injection Call in 1week Vimovo BID 06/28/2011 Appointment: Vikki Guamantel: [address] [place] [address] ACUTE ILLNESS 06/28/2011 Patient Education: Patient Medication Summary Completed 06/28/2011 Appointment: Vikki Guamantel: [address] [place] [address] US LAB 04/01/2011 Patient Education: Patient Medication Summary Completed 04/01/2011 Visit Plan: Decrease amlodopine to 1.25m g daily Schedule with Cardiology Fasting lab in AM 03/31/2011 Appointment: Vikki Guamantel: [address] [place] [address] ACUTE ILLNESS 03/31/2011 Patient Education: Patient Medication Summary Completed 03/31/2011 Visit Plan: Saline nasal flushes prn. Ty lenol/Motrin prn headache. Notify if persists/symptoms worsening. Cerumen removal from ears as above 02/11/2011 Appointment: Vikki Guaman WPtel: [address] [place] [address] ACUTE ILLNESS 02/11/2011 Patient Education: Patient Medication Summary Completed 02/11/2011 Appointment: Vikki Guaman WPtel: [address] [place] [address] US INJECTION 12/09/2010 Patient Education: Patient Medication Summary Completed 12/09/2010 Visit Plan: Continue vimovo for 1more we ek Increase Omeprazole to BID for 1mo then resume QD if stomach improved Vestibular exercises with meclizine q HS for next week 10/15/2010 Appointment: Vikki Guaman WPtel: [address] [place] [address] FOLLOW UP 10/15/2010 Patient Education: Patient Medication Summary Completed 10/15/2010 Appointment: Vikki Guaman WPtel: [address] [place] [address] ACUTE ILLNESS 09/29/2010 Patient Education: Patient Medication Summary Completed 09/29/2010 Appointment: Vikki Guaman WPtel: [address] [place] [address] LAB 07/06/2010 Patient Education: Patient Medication Summary Completed 07/06/2010 Visit Plan: Saline nasal flushes prn. Ty lenol/Motrin prn headache. Notify if persists/symptoms worsening. Add Veramyst Increase Omeprazole to 20mg po BID 07/02/2010 Appointment: Vikki Guaman WPtel: [address] [place] [address] ACUTE ILLNESS 07/02/2010 Patient Education: Patient Medication Summary Completed 07/02/2010 Appointment: Vikki Guaman WPtel: [address] [place] [address] FOLLOW UP 04/06/2010 Patient Education: Patient Medication Summary Completed 04/06/2010 Appointment: Vikki Guaman WPtel: [address] [place] [address] ACUTE ILLNESS 04/01/2010 Patient Education: Patient Medication Summary Completed 04/01/2010 Visit Plan: Nasocourt sample given. Pt. will notify if symptoms are worse on Tuesday. 01/22/2010 Appointment: Alisia Campbell WPtel: [address] [place] [address] ACUTE ILLNESS 01/22/2010 Patient Education: Patient Medication Summary Completed 01/22/2010 Appointment: Vikki Guaman WPtel: [address] [place] [address] US INJECTION 12/10/2009 Patient Education: Patient Medication Summary Completed 12/10/2009 Appointment: Vikki Guaman WPtel: [address] [place] [address] FOLLOW UP 12/02/2009 Patient Education: Patient Medication Summary Completed 12/02/2009 Patient Education: Lexapro Completed 0 12/02/2009 Visit Plan: May proceed with hiatal ryan ia repair per Card. so will contact Dr. Mariscal's office to proceed with surgery Trial of Lexapro 5mg QD plus use xanax prn 10/21/2009 Appointment: Vikki Guaman WPtel: [address] [place] [address] FOLLOW UP 10/21/2009 Patient Education: Patient Medication Summary Completed 10/21/2009 Visit Plan: B12 given Cont oral B12 and iron Fwup 1mo for B12 Proceed with hiatal hernia repair once card clearance 09/10/2009 Appointment: Vikki Guaman WPtel: [address] [place] [address] FOLLOW UP 09/10/2009 Patient Education: Patient Medication Summary Completed 09/10/2009 Appointment: Vikki Guaman WPtel: [address] [place] [address] FOLLOW UP 08/11/2009 Patient Education: Patient Medication Summary Completed 08/11/2009 Appointment: Vikki Guaman WPtel: [phone] [facility] US LAB 06/10/2009 Patient Education: Patient Medication Summary Completed 06/10/2009 Visit Plan: Check fasting lab in AM--CMP ,Lipids, CBC, Vit D, TSH,FreeT4, B12 06/09/2009 Appointment: [facility] [phone] [facility] [facility] 06/09/2009 Patient Education: Patient Medication Summary Completed 06/09/2009 Referral: Edy Cheek WPtel: #1 [facility] Referral Appointment Requested Referral: Edy Cheek WPtel: #1 [facility] Referral Initiated Instructions Comment . Supportive care. [...]
--- OUTSIDE RECORDS SUMMARY | 2019-04-25 20:19 | XMS REPORT | CCD ---
Author Author Evelyne Guaman D.O. Organization [facility] Address [address] [place] [address] Phone Care Team Providers Care Neon Installer Name Role Phone Vikki Guaman D.O. PP Unavailable CCM Unavailable Summary Purpose Interface Exchange Insurance Providers Payer name Policy type / Coverage type Covered republican ID Effective Begin Date Effective End Date WPS MEDICARE PART B [place] Medicare Part B [id number] Unknown Aetna [facility] Medicare Part B [id number] Unknown Family history Father Diagnosis Age At Onset Heart disease Unknown Mother Diagnosis Age At Onset Heart disease Unknown Cancer Unknown Social History Social History Element Codes Description Effective Dates Tobacco history SNOMED CT: 930889284 Never smoker 09/29/2010 Marital status Unknown Single 06/09/2009 Number of children Unknown 9 06/09/2009 Allergies, Adverse Reactions, Alerts Substance Reaction Codes Entered Date Inactivated Date Status _ Unknown 05/10/2018 No Inactive Date Active * NO KNOWN FOOD ALLERGIES Unknown 06/09/2009 No Inactiv e Date Active _ Unknown 06/09/2009 No Inactive Date Active QUINIDINE-QUININE ANALOGUES hives, Unknown 06/09/2009 No Inact ykle Date Active Problems Condition Codes Effective Dates [...] R10.13 11/22/2017 Active 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: [...] Instructions metoprolol tartrate 25 mg tablet RxNorm: 976500 1 Table t(s) Oral QAM and two tablets (50mg) in the evening--clarification/dose change 04/03/2019 Active Flonase Allergy Relief 50 mcg/actuation nasal spray,suspensi on RxNorm: 0105648 2 [place] Nasal every night at bedtime 03/30/2019 03/30/2019 Inactive simvastatin 40 mg tablet RxNorm: 013907 1 Tablet(s) Oral QD 020 12/24/2019 Active omeprazole 40 mg capsule,delayed release RxNorm: 610417 1 Capsu le(s) Oral QD 03/30/2019 12/24/2019 Active isosorbide mononitrate ER 30 mg tablet,extended release 24 h r RxNorm: 497107 1 Tablet(s) Oral every night at bedtime 03/30/2019 12/25/2019 Active metoprolol tartrate 25 mg tablet RxNorm: 951037 1 Table t(s) Oral QAM and two tablets (50mg) in the evening 03/30/2019 04/02/2019 Inactive omeprazole 40 mg capsule,delayed release RxNorm: 031637 1 Capsu le(s) Oral QD 03/27/2019 03/29/2019 Inactive Xanax 0.25 mg tablet RxNorm: 457343 TAKE 1 TABLET BY [facility] TWICE DAILY 1 Tablet(s) Oral two times a day as needed as needed for anxiety 03/27/2019 03/27/2019 Inactive simvastatin 40 mg tablet RxNorm: 872183 1 Tablet(s) Oral QD 020 03/29/2019 Inactive metoprolol tartrate 25 mg tablet RxNorm: 855029 1 Table t(s) Oral QAM and two tablets (50mg) in the evening 03/27/2019 03/29/2019 Inactive metoprolol tartrate 25 mg tablet RxNorm: 579002 1 Table t(s) Oral QAM and two tablets (50mg) in the evening 03/20/2019 03/26/2019 Inactive Flonase Allergy Relief 50 mcg/actuation nasal spray,suspensi on RxNorm: 1968317 2 [place] Nasal every night at bedtime 03/13/2019 03/13/2019 Inactive simvastatin 40 mg tablet RxNorm: 064515 1 Tablet(s) PO QD 01/22/2019 03/26/2019 Inactive omeprazole 40 mg capsule,delayed release RxNorm: 929360 1 Capsu le(s) Oral QD 01/10/2019 03/26/2019 Inactive Xanax 0.25 mg tablet RxNorm: 184547 TAKE 1 TABLET BY MOUTH TWIC E DAILY 01/02/2019 03/26/2019 Inactive omeprazole 40 mg capsule,delayed release RxNorm: 599740 1 Capsu le(s) PO QD 12/11/2018 01/09/2019 Inactive metoprolol tartrate 25 mg tablet RxNorm: 269495 1 Tablet(s) PO BID 11/20/2018 03/19/2019 Inactive omeprazole 40 mg capsule,delayed release RxNorm: 849946 1 Capsu le(s) PO QD 11/13/2018 12/10/2018 Inactive Flonase Allergy Relief 50 mcg/actuation nasal spray,suspensi on RxNorm: 6188244 2 [place] NASAL QHS 11/07/2018 03/12/2019 Inactive simvastatin 40 mg tablet RxNorm: 068270 1 Tablet(s) PO QD 10/23/2018 01/20/2019 Inactive simvastatin 40 mg tablet RxNorm: 060685 1 Tablet(s) PO QD 07/24/2018 10/21/2018 Inactive omeprazole 40 mg capsule,delayed release RxNorm: 249656 1 Capsu le(s) PO QD 07/13/2018 11/09/2018 Inactive simvastatin 40 mg tablet RxNorm: 170669 1 Tablet(s) PO QD 06/13/2018 07/12/2018 Inactive omeprazole 40 mg capsule,delayed release RxNorm: 170960 1 Capsu le(s) PO QD 06/13/2018 07/12/2018 Inactive Bactrim DS 800 mg-160 mg tablet RxNorm: 342355 1 Tablet(s) PO BID 0 05/12/2018 05/18/2018 Inactive Bactrim DS 800 mg-160 mg tablet RxNorm: 147206 1 Tablet(s) PO BID 0 05/12/2018 05/11/2018 Inactive Macrobid 100 mg capsule RxNorm: 026035 1 Capsule(s) PO BID 05/11/1905/16/2018 Inactive metoprolol tartrate 25 mg tablet RxNorm: 949922 1 Tablet(s) PO BID 05/10/2018 11/05/2018 Inactive Xanax 0.25 mg tablet RxNorm: 521232 TAKE 1 TABLET BY MOUTH TWIC E DAILY 02/16/2018 01/01/2019 Inactive Xanax 0.25 mg tablet RxNorm: 761965 1 Tablet(s) PO BID 02/14/2018 Inactive Protonix 40 mg tablet,delayed release RxNorm: 792663 1 Tablet(s) PO BID for stomach--replaces omeprazole 01/10/2018 05/09/2018 Inactive Carafate 1 gram tablet RxNorm: 969198 1 Tablet(s) PO AC & HS 201705/09/2018 Inactive Xanax 0.25 mg tablet RxNorm: 190195 1 Tablet(s) PO BID 01/03/201812/2017 Inactive Bactrim DS 800 mg-160 mg tablet RxNorm: 244879 1 Tablet(s) PO BID 1 12/12/2017 Inactive Bactrim DS 800 mg-160 mg tablet RxNorm: 329591 1 Tablet(s) PO BID 1 12/07/2017 Inactive Carafate 1 gram tablet RxNorm: 671272 1 Tablet(s) PO AC & HS 201712/21/2017 Inactive Protonix 40 mg tablet,delayed release RxNorm: 183846 1 Tablet(s) PO BID for stomach--replaces omeprazole 11/22/2017 01/09/2018 Inactive Protonix 40 mg tablet,delayed release RxNorm: 122697 1 Tablet(s) PO BID for stomach--replaces omeprazole 10/20/2017 11/21/2017 Inactive fluticasone 50 mcg/actuation nasal spray,suspension RxNorm: 6141359 2 [place] NASAL QD to each nostril 07/07/2017 08/13/2018 Inactive Nasonex 50 mcg/actuation [place] RxNorm: 3301345 2 [place] NASAL 201707/07/2017 Inactive omeprazole 40 mg capsule,delayed release RxNorm: 333970 1 Capsu le(s) PO QD 04/18/2017 10/19/2017 Inactive simvastatin 40 mg tablet RxNorm: 045240 1 Tablet(s) PO QD TAKE 1 TABLET EVERY DAY 04/18/2017 04/12/2018 Inactive metoprolol tartrate 25 mg tablet RxNorm: 562942 1/2 Tablet(s) PO QD 04/18/2017 01/09/2018 Inactive simvastatin 40 mg tablet RxNorm: 399492 Tablet(s) TAKE 1 TABLET EVERY DAY 10/27/2016 04/17/2017 Inactive metoprolol tartrate 25 mg tablet RxNorm: 283696 1/2 Tablet(s) PO QD 09/20/2016 03/18/2017 Inactive Flonase 50 mcg/actuation nasal spray,suspension RxNorm: 1797 933 2 [place] NASAL BID 09/20/2016 04/17/2017 Inactive omeprazole 40 mg capsule,delayed release RxNorm: 910322 1 Capsu le(s) PO QD 09/08/2016 04/17/2017 Inactive metoprolol tartrate 25 mg tablet RxNorm: 831744 1/2 Tablet(s) PO QD 06/14/2016 09/19/2016 Inactive ciprofloxacin 0.2 % ear drops in a dropperette RxNorm: 94945 6 4 Drop(s) OTIC TID for 1 week 02/06/2016 05/11/2016 Inactive cefdinir 300 mg capsule RxNorm: 119494 2 Capsule(s) PO QD 02/06/2016 02/15/2016 Inactive omeprazole 40 mg capsule,delayed release RxNorm: 694351 TAKE 1 CAPSULE EVERY DAY 11/06/2015 09/08/2016 Inactive simvastatin 40 mg tablet RxNorm: 062193 TAKE 1 TABLET EVERY DAY 05/201510/27/2016 Inactive Flonase 50 mcg/actuation nasal spray,suspension RxNorm: 1797 933 2 [place] NASAL BID 02/19/2015 09/19/2016 Inactive cefuroxime axetil 250 mg tablet RxNorm: 313848 1 Tablet(s) PO BID 0 11/21/2014 11/20/2014 Inactive cefuroxime axetil 250 mg tablet RxNorm: 847156 1 Tablet(s) PO BID 0 11/21/2014 11/27/2014 Inactive omeprazole 40 mg capsule,delayed release RxNorm: 045437 1 Capsu le(s) PO QD 10/09/2014 01/05/2015 Inactive meloxicam 7.5 mg tablet RxNorm: 031467 1 Tablet(s) PO QD 07/11/2014 0 08/09/2014 Inactive loratadine 10 mg tablet RxNorm: 439839 1 Tablet(s) PO QAM for a llergies 10/17/2013 08/13/2018 Inactive Flonase 50 mcg/actuation nasal spray,suspension RxNorm: 8963 23 2 [place] NASAL BID 10/17/2013 02/18/2015 Inactive prednisone 20 mg tablet RxNorm: 880986 2 Tablet(s) PO BID 10/17/2013 10/21/2013 Inactive Dyazide 37.5 mg-25 mg capsule RxNorm: 168533 1 Capsule(s) PO QAM 10/16/2013 Inactive Ceftin 500 mg tablet RxNorm: 295611 1 Tablet(s) PO BID 05/31/201307/2013 Inactive Ceftin 500 mg tablet RxNorm: 142309 1 Tablet(s) PO BID 03/26/2013 Inactive simvastatin 40 mg tablet RxNorm: 138699 Tablet(s) PO TA KE ONE TABLET BY MOUTH EVERY DAY 03/26/2013 10/07/2015 Inactive metoprolol tartrate 25 mg tablet RxNorm: 475860 Tablet( s) PO TAKE ONE-HALF TABLET BY MOUTH EVERY DAY 03/26/2013 11/12/2014 Inactive Ceftin 500 mg tablet RxNorm: 708958 1 Tablet(s) PO BID 12/19/2012 Inactive loratadine 10 mg tablet RxNorm: 719578 1 Tablet(s) PO QAM for a llergies 10/04/2012 12/02/2012 Inactive omeprazole 20 mg capsule,delayed release RxNorm: 596164 Capsule(s) PO TAKE ONE CAPSULE BY MOUTH TWICE DAILY 08/09/2012 10/08/2014 Inactive omeprazole 20 mg capsule,delayed release RxNorm: 901170 1 Capsu le(s) PO BID 08/09/2012 05/09/2018 Inactive Augmentin 875 mg-125 mg tablet RxNorm: 811535 1 Tablet(s) PO Q12H 0 07/14/2012 07/23/2012 Inactive Floxin Otic Drops 1 bottle Drops RxNorm: 5 Drop(s) OTIC BID 07/20/2012 Inactive metoprolol tartrate 25 mg tablet RxNorm: 513237 Tablet( s) PO TAKE ONE-HALF TABLET BY MOUTH EVERY DAY 04/11/2012 03/25/2013 Inactive simvastatin 40 mg tablet RxNorm: 426361 Tablet(s) PO TA KE ONE TABLET BY MOUTH EVERY DAY 04/11/2012 03/25/2013 Inactive lancets RxNorm: Misc Miscellaneous USE ONE TO CH JEFFERY GLUCOSE EVERY DAY 04/04/2012 05/09/2018 Inactive Carafate 1 gram tablet RxNorm: 454042 1 Tablet(s) PO AC & HS 201111/12/2014 Inactive Flagyl 500 mg tablet RxNorm: 140170 1 Tablet(s) PO TID 12/15/2011 Inactive Carafate 1 gram tablet RxNorm: 339972 1 Tablet(s) PO AC & HS 201102/12/2012 Inactive One Touch Test strips RxNorm: Miscellaneous QD 09/21/2011 05/09/2018 Inactive one touch ultra mini test strips Protonix 40 mg Tab RxNorm: 730642 1 Tablet(s) PO QD 09/13/20112011 Inactive Protonix 40 mg Tab RxNorm: 791790 1 Tablet(s) PO QD 09/13/20112011 Inactive prednisone 20 mg Tab RxNorm: 809069 1 Tablet(s) PO BID 08/03/201106/2011 Inactive Flexeril 5 mg Tab RxNorm: 376535 1 Tablet(s) PO QHS for spasm 07/2508/24/2011 Inactive Flexeril 5 mg Tab RxNorm: 857599 1 Tablet(s) PO QHS for spasm 06/2707/25/2011 Inactive amlodipine 2.5 mg Tab RxNorm: 685843 1/2 Tablet(s) PO QD replac es 5mg dose 03/31/2011 06/27/2011 Inactive simvastatin 40 mg tablet RxNorm: 956935 1 Tablet(s) PO QD 03/31/2011 03/24/2012 Inactive metoprolol tartrate 25 mg tablet RxNorm: 652353 1/2 Tablet(s) PO QD 03/31/2011 03/24/2012 Inactive omeprazole 20 mg capsule,delayed release RxNorm: 455325 1 Capsu le(s) PO BID 03/31/2011 09/12/2011 Inactive cefdinir 300 mg Cap RxNorm: 239330 2 Capsule(s) PO QD 02/11/201102/04 Inactive simvastatin 40 mg Tab RxNorm: 944902 1 Tablet(s) PO QD 02/01/2011 Inactive metoprolol tartrate 25 mg Tab RxNorm: 886186 1/2 Tablet(s) PO QD 03/30/2011 Inactive metoprolol tartrate 25 mg Tab RxNorm: 447757 1/2 Tablet(s) PO QD 12/28/2010 Inactive meclizine 25 mg Tab RxNorm: 8991065 1 Tablet(s) PO QHS 10/15/201011/2010 Inactive for dizziness Ceftin 500 mg Tab RxNorm: 293825 1 Tablet(s) PO BID 07/02/20102010 Inactive omeprazole 20 mg Cap, Delayed Release RxNorm: 436652 1 Capsule( s) PO BID 07/02/2010 12/28/2010 Inactive simvastatin 40 mg Tab RxNorm: 286279 1 Tablet(s) PO QD 06/30/201007/2018 Inactive simvastatin 40 mg Tab RxNorm: 126704 1 Tablet(s) PO QD 06/30/2010 Inactive simvastatin 40 mg Tab RxNorm: 876131 1 Tablet(s) PO QD 02/25/2010 Inactive Tessalon Perles 100 mg Cap RxNorm: 944620 1 Capsule(s) PO Q6-8H 01/28/2010 Inactive cefdinir 300 mg Cap RxNorm: 949024 1 Capsule(s) PO BID 01/22/2010 Inactive Lexapro 10 mg Tab RxNorm: 228494 1 Tablet(s) PO QD 12/02/2009 010 Inactive Cipro 250 mg Tab RxNorm: 878140 1 Tablet(s) PO BID 12/02/2009 010 Inactive Wellbutrin XL 150 mg 24 hr Tab RxNorm: 919750 1 Tablet(s) PO QAM 08/07/2009 Inactive Fish Oil 1,000 mg Cap RxNorm: 1 Capsule(s) PO QD No Start Date Active Tylenol Extra Strength 500 mg tablet RxNorm: 505615 1/2 Tablet( s) PO as needed No Start Date Active nitroglycerin 0.4 mg sublingual tablet RxNorm: 392340 Tablet(s) SL as needed No Start Date Active Calcium with Vitamin D 600 mg (1,500 mg)-400 unit tablet RxN orm: 692492 1 Tablet(s) PO QD No Start Date Active Multivitamin & Mineral Formula Tab RxNorm: 1 Tablet(s) PO QD No St art Date Active vitamin B complex capsule RxNorm: 1 Capsule(s) PO QD No Start Date Active Aspirin 81 mg Tab RxNorm: 440743 1 Tablet(s) PO QD No Start Date Active Vitamin D 1,000 unit Cap RxNorm: 699166 1 Capsule(s) PO QD No Start D ate Active Co Q-10 oral RxNorm: 31150 oral No Start Date Active metoprolol tartrate 25 mg Tab RxNorm: 553767 1/2 Tablet(s) PO QD No Start Date 12/27/2010 Inactive Nasonex 50 mcg/actuation [place] RxNorm: 7782917 2 [place] NASAL No Sta rt Date 07/06/2017 Inactive Vitamin B12 1000mcg Tablet RxNorm: 1 Tablet(s) PO QD No Start Date 11/12/2014 Inactive amlodipine 5 mg Tab RxNorm: 951858 1 Tablet(s) PO QD No Start Date Inactive simvastatin 40 mg tablet RxNorm: 996263 1 Tablet(s) PO QD No Start Date 06/12/2018 Inactive omeprazole 20 mg capsule,delayed release RxNorm: 940081 1 Capsu le(s) PO BID No Start Date 08/08/2012 Inactive omeprazole 40 mg capsule,delayed release RxNorm: 814512 1 Capsu le(s) PO QD No Start Date 06/12/2018 Inactive Nexium 40 mg Cap RxNorm: 365038 1 Capsule(s) PO QD No Start Date 01/05 Inactive Stool Softener 100 mg Tab RxNorm: 0767877 2 Tablet(s) PO BID No Sta rt Date 03/30/2011 Inactive Calcium with Vitamin D 600 mg (1,500 mg)-400 unit Tab RxNorm : 118326 1 Tablet(s) PO QD No Start Date 11/12/2014 Inactive iron 325 mg (65 mg iron) Tab RxNorm: 001678 1 Tablet(s) PO QD No St art Date 11/12/2014 Inactive Flonase 50 mcg/actuation Nasal [place] RxNorm: 943018 2 [place] DEMOND AL BID No Start Date 10/16/2013 Inactive fluticasone 50 mcg/actuation nasal spray,suspension RxNorm: 1676153 2 [place] NASAL QD to each nostril No Start Date 07/06/2017 Inactive Nasonex 50 mcg/actuation [place] RxNorm: 4776116 2 [place] NASAL QD No Start Date 07/06/2017 Inactive hydralazine 50 mg tablet RxNorm: 757850 1 Tablet(s) PO as needed for BP over 160/90 No Start Date 11/21/2017 Inactive Vimovo 500 mg-20 mg 12 hr Tab RxNorm: 703332 1 Tablet(s) PO BID No Start Date 02/10/2011 Inactive Tylenol PM 25 mg-500 mg/15 mL Oral Soln RxNorm: 9994613 1 PO QPM No Start Date 11/12/2014 Inactive Iron (Ferrous Sulfate) Oral RxNorm: Oral No Start Date 03/30/19 12 Inactive Reglan 10 mg Tab RxNorm: 439404 1 Tablet(s) PO TID before meals No Start Date 02/10/2011 Inactive Xanax 1 mg Tab RxNorm: 071278 1/2 Tablet(s) PO QD No Start Date 11/21 Inactive amlodipine 10 mg tablet RxNorm: 049376 1 Tablet(s) PO QD No Start D ate 09/23/2013 Inactive Iron (dried) Oral RxNorm: Oral No Start Date 03/30/2011 Inactiv e metoprolol tartrate 50 mg tablet RxNorm: 665241 1 Tablet(s) PO BID No Start Date 02/13/2018 Inactive Xanax 0.25 mg tablet RxNorm: 747594 1 Tablet(s) PO BID No Start Date 01/02/2018 Inactive lancets RxNorm: Miscellaneous check blood sugar at least once daily No Start Date 04/03/2012 Inactive simvastatin 40 mg Tab RxNorm: 739762 1 Tablet(s) PO QD No Start Date 02/24/2010 Inactive isosorbide mononitrate ER 30 mg tablet,extended release 24 h r RxNorm: 791968 1 Tablet(s) PO QHS No Start Date 08/13/2018 Inactive amlodipine 2.5 mg tablet RxNorm: 988712 1 Tablet(s) PO QD No Start Date 09/23/2013 Inactive isosorbide mononitrate ER 30 mg tablet,extended release 24 h r RxNorm: 656606 1 Tablet(s) PO QHS No Start Date 03/29/2019 Inactive sucralfate 1 gram tablet RxNorm: 957057 1 Tablet(s) PO QID No Start Date 05/09/2018 Inactive Fish Oil Oral RxNorm: Oral No Start Date 03/31/2011 Inactive Multiple Vitamin Oral RxNorm: Oral No Start Date 03/31/2011 Franny ctive metoprolol tartrate 25 mg tablet RxNorm: 314351 1/2 Tablet(s) P O QD No Start Date 06/13/2016 Inactive metoprolol tartrate 50 mg tablet RxNorm: 606521 1/2 Tablet(s) P O BID No Start Date 05/09/2018 Inactive Flonase Allergy Relief 50 mcg/actuation nasal spray,suspensi on RxNorm: 0147836 2 [place] NASAL QHS No Start Date 11/06/2018 Inactive [...] Date S vice Location COMPLETE BLOOD COUNT [id number] WBC 7.1 10e9/L 03/13/19 20 Unknown COMPLETE BLOOD COUNT [id number] RBC 4.16 10e12/L 2019 Unknown COMPLETE BLOOD COUNT [id number] HEMOGLOBIN 12.4 g/dL 03/13/19 Unknown COMPLETE BLOOD COUNT [id number] HEMATOCRIT 39.3 % 03/13/19 20 Unknown COMPLETE BLOOD COUNT [id number] MCV 94.5 fL 0 Unknown COMPLETE BLOOD COUNT [id number] MCH 29.8 pg 0 Unknown COMPLETE BLOOD COUNT [id number] MCHC 31.6 g/dL 0 Unknown COMPLETE BLOOD COUNT [id number] PLATELET COUNT 161 10e9/L 09/2019 Unknown COMPLETE BLOOD COUNT [id number] Mean Plt Volume 10.8 fL 09/2019 Unknown COMPLETE BLOOD COUNT [id number] Neut Auto 38.7 % 0 Unknown COMPLETE BLOOD COUNT [id number] Lymph Auto 48.0 % 03/13/19 Unknown COMPLETE BLOOD COUNT [id number] Reeves Auto 9.5 % 0 Unknown COMPLETE BLOOD COUNT [id number] RDW 13.5 % 0 Unknown COMPLETE BLOOD COUNT [id number] Eos Auto 3.2 % 0 Unknown COMPLETE BLOOD COUNT [id number] Baso Auto 0.6 % 0 Unknown COMPLETE BLOOD COUNT [id number] Neutrophil Abs 2.75 10e9/L Unknown COMPLETE BLOOD COUNT [id number] Lymphocyte Abs 3.41 10e9/L Unknown COMPLETE BLOOD COUNT [id number] Monocyte Abs 0.67 10e9/L 09/2019 Unknown COMPLETE BLOOD COUNT [id number] Eosinophil Abs 0.23 10e9/L Unknown COMPLETE BLOOD COUNT [id number] RDW-SD 44.7 fL 0 Unknown COMPLETE BLOOD COUNT [id number] Basophil Abs 0.04 10e9/L 09/2019 Unknown THYROID STIMULATING HORMONE 79440 TSH 1.677 uIU/mL 03/13/2019 Unknown COMPREHENSIVE METABOLIC 93027 AST 19 U/L 2019 Unknown COMPREHENSIVE METABOLIC 01221 ALT 12 U/L 2019 Unknown COMPREHENSIVE METABOLIC 68307 BUN 17 mg/dL 2019 Unknown COMPREHENSIVE METABOLIC 69696 ALBUMIN 4.2 g/dL 2019 Unknown COMPREHENSIVE METABOLIC 07668 CHLORIDE 103 mmol/L 03/13 Unknown COMPREHENSIVE METABOLIC 01240 Bili Total 0.2 mg/dL 03/13 Unknown COMPREHENSIVE METABOLIC 26079 ALK PHOS 61 U/L 2019 Unknown COMPREHENSIVE METABOLIC 27573 SODIUM 140 mmol/L 03/13 Unknown COMPREHENSIVE METABOLIC 96089 CREATININE 0.95 mg/dL 09/2019 Unknown COMPREHENSIVE METABOLIC 39836 CALCIUM 9.4 mg/dL 2019 Unknown COMPREHENSIVE METABOLIC 82903 POTASSIUM 4.2 mmol/L 03/13 Unknown COMPREHENSIVE METABOLIC 24819 Total Protein 6.5 g/dL Unknown COMPREHENSIVE METABOLIC 29958 Glucose 103 mg/dL 2019 Unknown COMPREHENSIVE METABOLIC 23385 Bicarbonate 26 mmol/L 09/2019 Unknown COMPREHENSIVE METABOLIC 37596 AGAP 11 mmol/L 2019 Unknown GFR CALC [id number] GFR Non Afr Amr 57 mL/min 03/13/2019 Unk nown GFR CALC [id number] GFR Afr Amr >60 mL/min 03/13/2019 Unknow n GFR CALC [id number] GFR Non Afr Amr 52 mL/min 12/15/2018 Unk nown GFR CALC [id number] GFR Afr Amr >60 mL/min 12/15/2018 Unknow n COMPREHENSIVE METABOLIC 56774 AST 17 U/L 2018 Unknown COMPREHENSIVE METABOLIC 71543 ALT 11 U/L 2018 Unknown COMPREHENSIVE METABOLIC 21724 BUN 17 mg/dL 2018 Unknown COMPREHENSIVE METABOLIC 05505 ALBUMIN 3.9 g/dL 2018 Unknown COMPREHENSIVE METABOLIC 27308 CHLORIDE 108 mmol/L 12/15 Unknown COMPREHENSIVE METABOLIC 61663 Bili Total 0.5 mg/dL 12/15 Unknown COMPREHENSIVE METABOLIC 87320 ALK PHOS 72 U/L 2018 Unknown COMPREHENSIVE METABOLIC 33262 SODIUM 142 mmol/L 12/15 Unknown COMPREHENSIVE METABOLIC 72340 CREATININE 1.02 mg/dL 12/05 Unknown COMPREHENSIVE METABOLIC 42743 CALCIUM 9.3 mg/dL 2018 Unknown COMPREHENSIVE METABOLIC 10373 POTASSIUM 4.0 mmol/L 12/15 Unknown COMPREHENSIVE METABOLIC 30269 Total Protein 6.2 g/dL Unknown COMPREHENSIVE METABOLIC 89314 Glucose 93 mg/dL 2018 Unknown COMPREHENSIVE METABOLIC 56937 Bicarbonate 27 mmol/L 12/05 Unknown COMPREHENSIVE METABOLIC 09057 AGAP 7 mmol/L 2018 Unknown GFR CALC [id number] GFR Non Afr Amr 48 mL/min 08/14/2018 Unk nown GFR CALC [id number] GFR Afr Amr 59 mL/min 08/14/2018 Unknown THYROID STIMULATING HORMONE 29182 TSH 1.936 uIU/mL 08/14/2018 Unknown COMPREHENSIVE METABOLIC 85697 AST 18 U/L 2018 Unknown COMPREHENSIVE METABOLIC 33066 ALT 11 U/L 2018 Unknown COMPREHENSIVE METABOLIC 41400 BUN 18 mg/dL 2018 Unknown COMPREHENSIVE METABOLIC 38492 ALBUMIN 4.2 g/dL 2018 Unknown COMPREHENSIVE METABOLIC 06915 CHLORIDE 109 mmol/L 08/14 Unknown COMPREHENSIVE METABOLIC 89501 Bili Total 0.4 mg/dL 08/14 Unknown COMPREHENSIVE METABOLIC 91506 ALK PHOS 64 U/L 2018 Unknown COMPREHENSIVE METABOLIC 62632 SODIUM 142 mmol/L 08/14 Unknown COMPREHENSIVE METABOLIC 01629 CREATININE 1.09 mg/dL 08/05 Unknown COMPREHENSIVE METABOLIC 21353 CALCIUM 9.3 mg/dL 2018 Unknown COMPREHENSIVE METABOLIC 85536 POTASSIUM 4.7 mmol/L 08/14 Unknown COMPREHENSIVE METABOLIC 48836 Total Protein 6.3 g/dL Unknown COMPREHENSIVE METABOLIC 41548 Glucose 84 mg/dL 2018 Unknown COMPREHENSIVE METABOLIC 08939 Bicarbonate 25 mmol/L 08/05 Unknown COMPREHENSIVE METABOLIC 67081 AGAP 8 mmol/L 2018 Unknown COMPLETE BLOOD COUNT [id number] WBC 7.8 10e9/L 08/15/19 19 Unknown COMPLETE BLOOD COUNT [id number] RBC 4.04 10e12/L 2018 Unknown COMPLETE BLOOD COUNT [id number] HEMOGLOBIN 12.2 g/dL 08/15/19 19 Unknown COMPLETE BLOOD COUNT [id number] HEMATOCRIT 38.6 % 08/15/19 19 Unknown COMPLETE BLOOD COUNT [id number] MCV 95.5 fL 9 Unknown COMPLETE BLOOD COUNT [id number] MCH 30.2 pg 9 Unknown COMPLETE BLOOD COUNT [id number] MCHC 31.6 g/dL 9 Unknown COMPLETE BLOOD COUNT 1403272 PLATELET COUNT 215 10e9/L 12/2018 Unknown COMPLETE BLOOD COUNT [id number] Mean Plt Volume 11.2 fL 12/2018 Unknown COMPLETE BLOOD COUNT [id number] Neut Auto 45.7 % 9 Unknown COMPLETE BLOOD COUNT [id number] Lymph Auto 42.1 % 08/15/19 19 Unknown COMPLETE BLOOD COUNT [id number] Reeves Auto 9.2 % 9 Unknown COMPLETE BLOOD COUNT [id number] RDW 13.4 % 9 Unknown COMPLETE BLOOD COUNT 5305364 Eos Auto 2.7 % 9 Unknown COMPLETE BLOOD COUNT [id number] Baso Auto 0.3 % 9 Unknown COMPLETE BLOOD COUNT [id number] Neutrophil Abs 3.56 10e9/L Unknown COMPLETE BLOOD COUNT [id number] Lymphocyte Abs 3.28 10e9/L Unknown COMPLETE BLOOD COUNT [id number] Monocyte Abs 0.72 10e9/L 08/05 Unknown COMPLETE BLOOD COUNT [id number] Eosinophil Abs 0.21 10e9/L Unknown COMPLETE BLOOD COUNT [id number] RDW-SD 44.9 fL 9 Unknown COMPLETE BLOOD COUNT [id number] Basophil Abs 0.02 10e9/L 08/05 Unknown COMPLETE BLOOD COUNT [id number] WBC 5.2 10e9/L 12/01/19 18 Unknown COMPLETE BLOOD COUNT [id number] RBC 4.21 10e12/L 2017 Unknown COMPLETE BLOOD COUNT [id number] HEMOGLOBIN 12.8 g/dL 12/01/19 18 Unknown COMPLETE BLOOD COUNT [id number] HEMATOCRIT 39.0 % 12/01/19 18 Unknown COMPLETE BLOOD COUNT [id number] MCV 92.6 fL 8 Unknown COMPLETE BLOOD COUNT [id number] MCH 30.4 pg 8 Unknown COMPLETE BLOOD COUNT [id number] MCHC 32.8 g/dL 8 Unknown COMPLETE BLOOD COUNT [id number] PLATELET COUNT 202 10e9/L Unknown COMPLETE BLOOD COUNT [id number] Mean Plt Volume 10.7 fL Unknown COMPLETE BLOOD COUNT [id number] Neut Auto 40.9 % 8 Unknown COMPLETE BLOOD COUNT [id number] Lymph Auto 46.3 % 12/01/19 18 Unknown COMPLETE BLOOD COUNT [id number] Reeves Auto 9.3 % 8 Unknown COMPLETE BLOOD COUNT [id number] RDW 13.7 % 8 Unknown COMPLETE BLOOD COUNT [id number] Eos Auto 2.9 % 8 Unknown COMPLETE BLOOD COUNT [id number] Baso Auto 0.6 % 8 Unknown COMPLETE BLOOD COUNT [id number] Neutrophil Abs 2.13 10e9/L Unknown COMPLETE BLOOD COUNT [id number] Lymphocyte Abs 2.41 10e9/L Unknown COMPLETE BLOOD COUNT [id number] Monocyte Abs 0.48 10e9/L 11/06 Unknown COMPLETE BLOOD COUNT [id number] Eosinophil Abs 0.15 10e9/L Unknown COMPLETE BLOOD COUNT [id number] RDW-SD 45.2 fL 8 Unknown COMPLETE BLOOD COUNT [id number] Basophil Abs 0.03 10e9/L 11/06 [place] [address] Glucose 118 mg/dL 11/30 [place] [address] CREATININE 1.01 mg/dL [place] [address] BUN 14 mg/dL 11/30 [place] [address] SODIUM 141 mmol/L 11/06 [place] [address] POTASSIUM 4.0 mmol/L 11/06 [place] [address] CHLORIDE 108 mmol/L 11/06 [place] [address] Bicarbonate 25 mmol/[place] [address] AGAP 8 mmol/L 11/30 [place] [address] CALCIUM 9.6 mg/dL 11/30 Unknown FREE T4 58938 T4 Free 1.23 ng/dL 11/30/2017 Unknown GFR CALC [id number] GFR Non Afr Amr 53 mL/min 11/30/2017 Unk nown GFR CALC [id number] GFR Afr Amr >60 mL/min 11/30/2017 Unknow n THYROID STIMULATING HORMONE 19056 TSH 2.124 uIU/mL 11/30/2017 Unknown LIPID GROUP 11792 Cholesterol 152 mg/dL 09/28/2017 Unkno wn LIPID GROUP 98561 Triglyceride 151 mg/dL 09/28/2017 Unkn own [facility] 24386 HDL CHOLESTEROL 47 mg/dL 09/28/2017 U nknown [facility] 48485 Chol/HDL Ratio 3.23 ratio 09/28/2017 U nknown [facility] 29178 NON-HDL Chol 105 mg/dL 09/28/2017 Unkn own [facility] 69221 LDL Cholesterol 75 mg/dL 09/28/2017 U nknown ASSAY OF TROPONIN QUANT 87738 Troponin-I <0.30 ng/mL Unknown COMPREHENSIVE METABOLIC 63472 AST 20 U/L 2017 Unknown COMPREHENSIVE METABOLIC 69116 ALT 14 U/L 2017 Unknown COMPREHENSIVE METABOLIC 61171 BUN 19 mg/dL 2017 Unknown COMPREHENSIVE METABOLIC 83269 ALBUMIN 4.2 g/dL 2017 Unknown COMPREHENSIVE METABOLIC 58827 CHLORIDE 102 mmol/L 09/27 Unknown COMPREHENSIVE METABOLIC 36814 Bili Total 0.4 mg/dL 09/27 Unknown COMPREHENSIVE METABOLIC 70577 ALK PHOS 66 U/L 2017 Unknown COMPREHENSIVE METABOLIC 35763 SODIUM 135 mmol/L 09/27 Unknown COMPREHENSIVE METABOLIC 14814 CREATININE 1.01 mg/dL 09/05 Unknown COMPREHENSIVE METABOLIC 70042 CALCIUM 9.3 mg/dL 2017 Unknown COMPREHENSIVE METABOLIC 82615 POTASSIUM 4.8 mmol/L 09/27 Unknown COMPREHENSIVE METABOLIC 05773 Total Protein 7.0 g/dL Unknown COMPREHENSIVE METABOLIC 50438 Glucose 91 mg/dL 2017 Unknown COMPREHENSIVE METABOLIC 55551 Bicarbonate 23 mmol/L 09/05 Unknown COMPREHENSIVE METABOLIC 75415 AGAP 10 mmol/L 2017 Unknown COMPLETE BLOOD COUNT [id number] WBC 7.5 10e9/L 09/28/19 18 Unknown COMPLETE BLOOD COUNT 9256873 RBC 4.13 10e12/L 2017 Unknown COMPLETE BLOOD COUNT 4941025 HEMOGLOBIN 12.6 g/dL 09/28/19 18 Unknown COMPLETE BLOOD COUNT 9295265 HEMATOCRIT 38.4 % 09/28/19 18 Unknown COMPLETE BLOOD COUNT 7159769 MCV 93.0 fL 8 Unknown COMPLETE BLOOD COUNT 6866185 MCH 30.5 pg 8 Unknown COMPLETE BLOOD COUNT 8124600 MCHC 32.8 g/dL 8 Unknown COMPLETE BLOOD COUNT 2815347 PLATELET COUNT 204 10e9/L Unknown COMPLETE BLOOD COUNT 3062240 Mean Plt Volume 10.9 fL Unknown COMPLETE BLOOD COUNT 2020766 Neut Auto 43.1 % 8 Unknown COMPLETE BLOOD COUNT 9507554 Lymph Auto 45.0 % 09/28/19 18 Unknown COMPLETE BLOOD COUNT 7399677 Reeves Auto 9.2 % 8 Unknown COMPLETE BLOOD COUNT 3917589 RDW 13.4 % 8 Unknown COMPLETE BLOOD COUNT 3457520 Eos Auto 2.3 % 8 Unknown COMPLETE BLOOD COUNT 2598410 Baso Auto 0.4 % 8 Unknown COMPLETE BLOOD COUNT 5366163 Neutrophil Abs 3.23 10e9/L Unknown COMPLETE BLOOD COUNT 2725205 Lymphocyte Abs 3.38 10e9/L Unknown COMPLETE BLOOD COUNT 0280254 Monocyte Abs 0.69 10e9/L 09/05 Unknown COMPLETE BLOOD COUNT 0789941 Eosinophil Abs 0.17 10e9/L Unknown COMPLETE BLOOD COUNT 9045998 RDW-SD 44.4 fL 8 Unknown COMPLETE BLOOD COUNT 6277805 Basophil Abs 0.03 10e9/L 09/05 Unknown GFR CALC 5907850 GFR Non Afr Amr 53 mL/min 09/27/2017 Unk nown GFR CALC 9669052 GFR Afr Amr >60 mL/min 09/27/2017 Unknow n GLYCOSYLATED HEMOGLOBIN TEST 31341 Hgb A1c 65578-0 5.4 % 0 09/27/2017 Unknown MEAN GLUC 7142090 Calc Mean Gluc 108 mg/dL 09/27/2017 Unkn own MEAN GLUC 7495087 Calc Mean Gluc 114 mg/dL 11/01/2016 Unkn own [facility] 71323 Cholesterol 146 mg/dL 11/01/2016 Unkno wn [facility] 06356 Triglyceride 119 mg/dL 11/01/2016 Unkn own [facility] 26097 HDL CHOLESTEROL 47 mg/dL 11/01/2016 U nknown [facility] 26439 Chol/HDL Ratio 3.11 ratio 11/01/2016 U nknown [facility] 36466 NON-HDL Chol 99 mg/dL 11/01/2016 Unkn own [facility] 65906 LDL Cholesterol 75 mg/dL 11/01/2016 U nknown GLYCOSYLATED HEMOGLOBIN TEST 30717 Hgb A1c 56779-9 5.6 % 0 11/01/2016 Unknown COMPREHENSIVE METABOLIC 27433 AST 22 U/L 2016 Unknown COMPREHENSIVE METABOLIC 39730 ALT 12 U/L 2016 Unknown COMPREHENSIVE METABOLIC 00762 BUN 17 mg/dL 2016 Unknown COMPREHENSIVE METABOLIC 33119 ALBUMIN 4.0 g/dL 2016 Unknown COMPREHENSIVE METABOLIC 46942 CHLORIDE 110 mmol/L 11/01 Unknown COMPREHENSIVE METABOLIC 77238 Bili Total 0.4 mg/dL 11/01 Unknown COMPREHENSIVE METABOLIC 81781 ALK PHOS 63 U/L 2016 Unknown COMPREHENSIVE METABOLIC 26183 SODIUM 140 mmol/L 11/01 Unknown COMPREHENSIVE METABOLIC 07072 CREATININE 1.05 mg/dL 10/06 Unknown COMPREHENSIVE METABOLIC 11036 CALCIUM 9.2 mg/dL 2016 Unknown COMPREHENSIVE METABOLIC 24349 POTASSIUM 4.2 mmol/L 11/01 Unknown COMPREHENSIVE METABOLIC 71309 Total Protein 6.2 g/dL Unknown COMPREHENSIVE METABOLIC 41390 Glucose 87 mg/dL 2016 Unknown COMPREHENSIVE METABOLIC 97907 Bicarbonate 24 mmol/L 10/06 Unknown COMPREHENSIVE METABOLIC 16742 AGAP 6 mmol/L 2016 Unknown GFR CALC 1109438 GFR Non Afr Amr 51 mL/min 11/01/2016 Unk nown GFR CALC 3622743 GFR Afr Amr >60 mL/min 11/01/2016 Unknow n COMPLETE BLOOD COUNT 9619222 WBC 6.7 10e9/L 11/02/19 17 Unknown COMPLETE BLOOD COUNT 7219885 RBC 4.04 10e12/L 2016 Unknown COMPLETE BLOOD COUNT 3666385 HEMOGLOBIN 12.1 g/dL 11/02/19 17 Unknown COMPLETE BLOOD COUNT 0451111 HEMATOCRIT 38.0 % 11/02/19 17 Unknown COMPLETE BLOOD COUNT 4899838 MCV 94.1 fL 7 Unknown COMPLETE BLOOD COUNT 9550131 MCH 30.0 pg 7 Unknown COMPLETE BLOOD COUNT 8699021 MCHC 31.8 g/dL 7 Unknown COMPLETE BLOOD COUNT 4006377 PLATELET COUNT 206 10e9/L Unknown COMPLETE BLOOD COUNT 0182079 Mean Plt Volume 11.3 fL Unknown COMPLETE BLOOD COUNT 1480752 Neut Auto 35.8 % 7 Unknown COMPLETE BLOOD COUNT 1801839 Lymph Auto 51.6 % 11/02/19 17 Unknown COMPLETE BLOOD COUNT 3362487 Reeves Auto 8.8 % 7 Unknown COMPLETE BLOOD COUNT 9955632 RDW 13.5 % 7 Unknown COMPLETE BLOOD COUNT 1869160 Eos Auto 3.4 % 7 Unknown COMPLETE BLOOD COUNT 6515862 Baso Auto 0.4 % 7 Unknown COMPLETE BLOOD COUNT 6105849 Neutrophil Abs 2.40 10e9/L Unknown COMPLETE BLOOD COUNT 2578191 Lymphocyte Abs 3.46 10e9/L Unknown COMPLETE BLOOD COUNT 8492039 Monocyte Abs 0.59 10e9/L 10/06 Unknown COMPLETE BLOOD COUNT 6106370 Eosinophil Abs 0.23 10e9/L Unknown COMPLETE BLOOD COUNT 6856949 RDW-SD 45.3 fL 7 Unknown COMPLETE BLOOD COUNT 8154457 Basophil Abs 0.03 10e9/L 10/06 Unknown THYROID STIMULATING HORMONE 11307 TSH 1.981 uIU/mL 11/01/2016 Unknown COMPLETE BLOOD COUNT 7168218 WBC 6.0 10e9/L 05/14/19 17 Unknown COMPLETE BLOOD COUNT 6801355 RBC 4.29 10e12/L 2016 Unknown COMPLETE BLOOD COUNT 1199183 HEMOGLOBIN 12.9 g/dL 05/14/19 17 Unknown COMPLETE BLOOD COUNT 2928276 HEMATOCRIT 38.4 % 05/14/19 17 Unknown COMPLETE BLOOD COUNT 9432073 MCV 89.5 fL 7 Unknown COMPLETE BLOOD COUNT 5690781 MCH 30.1 pg 7 Unknown COMPLETE BLOOD COUNT 6071897 MCHC 33.6 g/dL 7 Unknown COMPLETE BLOOD COUNT 3979715 PLATELET COUNT 181 10e9/L 11/2016 Unknown COMPLETE BLOOD COUNT 6453421 Mean Plt Volume 11.7 fL 11/2016 Unknown COMPLETE BLOOD COUNT 4887708 Neut Auto 36.9 % 7 Unknown COMPLETE BLOOD COUNT 7905677 Lymph Auto 50.4 % 05/14/19 17 Unknown COMPLETE BLOOD COUNT 0951252 Reeves Auto 9.0 % 7 Unknown COMPLETE BLOOD COUNT 4585123 RDW 13.7 % 7 Unknown COMPLETE BLOOD COUNT 4984703 Eos Auto 3.4 % 7 Unknown COMPLETE BLOOD COUNT 6133916 Baso Auto 0.3 % 7 Unknown COMPLETE BLOOD COUNT 6769163 Neutrophil Abs 2.21 10e9/L Unknown COMPLETE BLOOD COUNT 0732367 Lymphocyte Abs 3.02 10e9/L Unknown COMPLETE BLOOD COUNT 4194962 Monocyte Abs 0.54 10e9/L 11/2016 Unknown COMPLETE BLOOD COUNT 1049580 Eosinophil Abs 0.20 10e9/L Unknown COMPLETE BLOOD COUNT 1474250 RDW-SD 44.0 fL 7 Unknown COMPLETE BLOOD COUNT 1087107 Basophil Abs 0.02 10e9/L 11/2016 Unknown GLYCOSYLATED HEMOGLOBIN TEST 05409 Hgb A1c 84303-8 5.4 % 0 05/13/2016 Unknown THYROID STIMULATING HORMONE 05901 TSH 2.200 uIU/mL 05/13/2016 Unknown GFR CALC 5063155 GFR Non Afr Amr 50 mL/min 05/13/2016 Unk nown GFR CALC 8171277 GFR Afr Amr >60 mL/min 05/13/2016 Unknow n MEAN GLUC 0455178 Calc Mean Gluc 108 mg/dL 05/13/2016 Unkn own COMPREHENSIVE METABOLIC 76298 AST 18 U/L 2016 Unknown COMPREHENSIVE METABOLIC 65487 ALT 10 U/L 2016 Unknown COMPREHENSIVE METABOLIC 54051 BUN 20 mg/dL 2016 Unknown COMPREHENSIVE METABOLIC 82687 ALBUMIN 4.1 g/dL 2016 Unknown COMPREHENSIVE METABOLIC 48998 CHLORIDE 109 mmol/L 05/13 Unknown COMPREHENSIVE METABOLIC 75670 Bili Total 0.6 mg/dL 05/13 Unknown COMPREHENSIVE METABOLIC 33051 ALK PHOS 64 U/L 2016 Unknown COMPREHENSIVE METABOLIC 09212 SODIUM 141 mmol/L 05/13 Unknown COMPREHENSIVE METABOLIC 29568 CREATININE 1.06 mg/dL 11/2016 Unknown COMPREHENSIVE METABOLIC 73391 CALCIUM 9.9 mg/dL 2016 Unknown COMPREHENSIVE METABOLIC 62751 POTASSIUM 4.2 mmol/L 05/13 Unknown COMPREHENSIVE METABOLIC 88486 Total Protein 6.3 g/dL Unknown COMPREHENSIVE METABOLIC 78719 Glucose 99 mg/dL 2016 Unknown COMPREHENSIVE METABOLIC 28473 Bicarbonate 21 mmol/L 11/2016 Unknown COMPREHENSIVE METABOLIC 45551 AGAP 11 mmol/L 2016 Unknown [facility] 25964 Cholesterol 169 mg/dL 11/25/2015 Unkno wn [facility] 24520 Triglyceride 165 mg/dL 11/25/2015 Unkn own [facility] 04676 HDL CHOLESTEROL 43 mg/dL 11/25/2015 U nknown [facility] 79124 Chol/HDL Ratio 3.93 ratio 11/25/2015 U nknown [facility] 09951 NON-HDL Chol 126 mg/dL 11/25/2015 Unkn own [facility] 01508 LDL Cholesterol 93 mg/dL 11/25/2015 U nknown COMPREHENSIVE METABOLIC 16120 AST 18 U/L 2015 Unknown COMPREHENSIVE METABOLIC 03257 ALT 10 U/L 2015 Unknown COMPREHENSIVE METABOLIC 30148 BUN 20 mg/dL 2015 Unknown COMPREHENSIVE METABOLIC 10028 ALBUMIN 3.9 g/dL 2015 Unknown COMPREHENSIVE METABOLIC 95577 CHLORIDE 110 mmol/L 11/24 Unknown COMPREHENSIVE METABOLIC 42250 Bili Total 0.5 mg/dL 11/24 Unknown COMPREHENSIVE METABOLIC 48362 ALK PHOS 72 U/L 2015 Unknown COMPREHENSIVE METABOLIC 00254 SODIUM 141 mmol/L 11/24 Unknown COMPREHENSIVE METABOLIC 41858 CREATININE 1.12 mg/dL 11/06 Unknown COMPREHENSIVE METABOLIC 29187 CALCIUM 9.7 mg/dL 2015 Unknown COMPREHENSIVE METABOLIC 18838 POTASSIUM 4.4 mmol/L 11/24 Unknown COMPREHENSIVE METABOLIC 04410 Total Protein 6.2 g/dL Unknown COMPREHENSIVE METABOLIC 68533 Glucose 90 mg/dL 2015 Unknown COMPREHENSIVE METABOLIC 43551 Bicarbonate 23 mmol/L 11/06 Unknown COMPREHENSIVE METABOLIC 30707 AGAP 8 mmol/L 2015 Unknown GFR CALC 2044926 GFR Non Afr Amr 47 mL/min 11/25/2015 Unk nown GFR CALC 9264477 GFR Afr Amr 57 mL/min 11/25/2015 Unknown GLYCOSYLATED HEMOGLOBIN TEST 84044 Hgb A1c 32531-2 5.5 % 0 11/25/2015 Unknown THYROID STIMULATING HORMONE 84459 TSH 2.537 uIU/mL 11/25/2015 Unknown FREE T4 72417 T4 Free 1.36 ng/dL 11/25/2015 Unknown COMPLETE BLOOD COUNT 1331921 WBC 6.8 10e9/L 11/25/19 16 Unknown COMPLETE BLOOD COUNT 4731527 RBC 4.20 10e12/L 2015 Unknown COMPLETE BLOOD COUNT 4626228 HEMOGLOBIN 12.5 g/dL 11/25/19 16 Unknown COMPLETE BLOOD COUNT 2363989 HEMATOCRIT 38.0 % 11/25/19 16 Unknown COMPLETE BLOOD COUNT 5639253 MCV 90.5 fL 6 Unknown COMPLETE BLOOD COUNT 1586518 MCH 29.8 pg 6 Unknown COMPLETE BLOOD COUNT 8697151 MCHC 32.9 g/dL 6 Unknown COMPLETE BLOOD COUNT 7727445 PLATELET COUNT 197 10e9/L Unknown COMPLETE BLOOD COUNT 6599429 Mean Plt Volume 11.7 fL Unknown COMPLETE BLOOD COUNT 6098285 Neut Auto 41.3 % 6 Unknown COMPLETE BLOOD COUNT 2413766 Lymph Auto 47.1 % 11/25/19 16 Unknown COMPLETE BLOOD COUNT 5018091 Reeves Auto 7.8 % 6 Unknown COMPLETE BLOOD COUNT 0863487 RDW 13.8 % 6 Unknown COMPLETE BLOOD COUNT 8643000 Eos Auto 3.4 % 6 Unknown COMPLETE BLOOD COUNT 1153425 Baso Auto 0.4 % 6 Unknown COMPLETE BLOOD COUNT 5928149 Neutrophil Abs 2.81 10e9/L Unknown COMPLETE BLOOD COUNT 4592541 Lymphocyte Abs 3.20 10e9/L Unknown COMPLETE BLOOD COUNT 9425778 Monocyte Abs 0.53 10e9/L 11/06 Unknown COMPLETE BLOOD COUNT 9979686 Eosinophil Abs 0.23 10e9/L Unknown COMPLETE BLOOD COUNT 4635235 RDW-SD 44.4 fL 6 Unknown COMPLETE BLOOD COUNT 4994313 Basophil Abs 0.03 10e9/L 11/06 Unknown MEAN GLUC 6761397 Calc Mean Gluc 111 mg/dL 11/25/2015 [place] [address] Glucose 89 MG/DL 02/19 [place] [address] CREATININE 1.12 MG/DL [place] [address] BUN 20 MG/DL 02/19 [place] [address] SODIUM 139 MMOL/L 02/04 [place] [address] POTASSIUM 4.6 MMOL/L 02/04 [place] [address] CHLORIDE 108 MMOL/L 02/04 [place] [address] BICARB 26 MMOL/L 02/19 [place] [address] ANION GAP 5 MEQ/L 02/19 [place] [address] CALCIUM 10.0 MG/DL 02/04 Unknown GFR CALC 2023124 GFR AA 57.0L ML/MIN 02/19/2015 Unknow n GFR CALC 8858047 GFR NON-AA 47.0L ML/MIN 02/19/2015 Unkno wn THYROID STIMULATING HORMONE 70830 TSH 2.378 uIU/ML 11/14/2014 Unknown COMPLETE BLOOD COUNT 7501406 WBC 6.4 10e9/L 11/15/19 15 Unknown COMPLETE BLOOD COUNT 1175203 RBC 3.99 10e12/L 2014 Unknown COMPLETE BLOOD COUNT 7881908 HGB 11.9 g/dL 5 Unknown COMPLETE BLOOD COUNT 1781004 HCT DET 36.9 % 5 Unknown COMPLETE BLOOD COUNT 7281133 MCV 92.5 fL 5 Unknown COMPLETE BLOOD COUNT 8984546 MCH 29.8 pg 5 Unknown COMPLETE BLOOD COUNT 1383031 MCHC 32.2 g/dL 5 Unknown COMPLETE BLOOD COUNT 4727893 PLT 172 10e9/L 11/15/19 15 Unknown COMPLETE BLOOD COUNT 3601299 MPV 11.7 fL 5 Unknown COMPLETE BLOOD COUNT 0493842 CINTHYA % 40.4 % 5 Unknown COMPLETE BLOOD COUNT 7010862 LY % 48.0 % 5 Unknown COMPLETE BLOOD COUNT 2392862 MON % 8.3 % 5 Unknown COMPLETE BLOOD COUNT 1037354 EOS % 2.8 % 5 Unknown COMPLETE BLOOD COUNT 3290892 BASO % 0.5 % 5 Unknown COMPLETE BLOOD COUNT 5421073 RDW 13.6 % 5 Unknown COMPLETE BLOOD COUNT 7747553 ABS CINTHYA 2.59 10e9/L 015 Unknown COMPLETE BLOOD COUNT 7915531 ABS LYMPH 3.07 10e9/L 015 Unknown COMPLETE BLOOD COUNT 1571889 ABS MONO 0.53 10e9/L 015 Unknown COMPLETE BLOOD COUNT 1355889 ABS EOS 0.18 10e9/L 015 Unknown COMPLETE BLOOD COUNT 4948168 ABS BASO 0.03 10e9/L 015 Unknown COMPLETE BLOOD COUNT 5724510 RDW-SD 44.9 fL 5 Unknown LIPID GROUP 80550 HDL TEST 42 MG/DL 11/14/2014 Unknown LIPID GROUP 81792 TRIG 177 MG/DL 11/14/2014 Unknown LIP[facility] GROUP 46471 TEST LDL 72 MG/DL 11/14/2014 Unknown LIPID GROUP 77042 CHOL 149 MG/DL 11/14/2014 Unknown LIP[facility] GROUP 79649 RCHOL/HDL 3.55 RATIO 11/14/2014 Unknow n LIP[facility] GROUP 38457 NON-HDL CH 107 MG/DL 11/14/2014 Unknow n GLYCOSYLATED HEMOGLOBIN TEST 13926 A1C HPLC 15589-1 5.5 % 0 11/14/2014 Unknown FREE T4 57381 FREE T4 1.39 NG/DL 11/14/2014 Unknown GFR CALC 0303793 GFR AA 55.0L ML/MIN 11/14/2014 Unknow n GFR CALC 2821141 GFR NON-AA 46.0L ML/MIN 11/14/2014 Unkno wn COMPREHENSIVE METABOLIC 44049 AST 17 U/L 2014 Unknown COMPREHENSIVE METABOLIC 97532 ALT 10 IU/L 2014 Unknown COMPREHENSIVE METABOLIC 72155 BUN 20 MG/DL 2014 Unknown COMPREHENSIVE METABOLIC 64969 ALBUMIN 3.9 GM/DL 2014 Unknown COMPREHENSIVE METABOLIC 42032 CHLORIDE 111 MMOL/L 11/14 Unknown COMPREHENSIVE METABOLIC 80113 BILI TOT 0.4 MG/DL 2014 Unknown COMPREHENSIVE METABOLIC 81407 ALK PHOS 70 U/L 2014 Unknown COMPREHENSIVE METABOLIC 36528 SODIUM 142 MMOL/L 11/14 Unknown COMPREHENSIVE METABOLIC 06343 CREATININE 1.16 MG/DL 11/05 Unknown COMPREHENSIVE METABOLIC 33957 CALCIUM 9.4 MG/DL 2014 Unknown COMPREHENSIVE METABOLIC 74271 POTASSIUM 4.6 MMOL/L 11/14 Unknown COMPREHENSIVE METABOLIC 04208 PROT TOT 6.2 GM/DL 2014 Unknown COMPREHENSIVE METABOLIC 96398 Glucose 90 MG/DL 2014 Unknown COMPREHENSIVE METABOLIC 29558 BICARB 24 MMOL/L 2014 Unknown COMPREHENSIVE METABOLIC 43459 ANION GAP 7 MEQ/L 2014 Unknown THYROID STIMULATING HORMONE 52364 TSH 2.427 uIU/ML 05/10/2014 Unknown [facility] 52249 HDL TEST 47 MG/DL 05/10/2014 Unknown [facility] 92533 TRIG 145 MG/DL 05/10/2014 Unknown LIP[facility] GROUP 70538 TEST LDL 73 MG/DL 05/10/2014 Unknown LIP[facility] GROUP 28010 CHOL 149 MG/DL 05/10/2014 Unknown LIP[facility] GROUP 05703 RCHOL/HDL 3.17 RATIO 05/10/2014 Unknow n LIP[facility] GROUP 26632 NON-HDL CH 102 MG/DL 05/10/2014 Unknow n COMPREHENSIVE METABOLIC 88460 AST 17 U/L 2014 Unknown COMPREHENSIVE METABOLIC 44399 ALT 9 IU/L 2014 Unknown COMPREHENSIVE METABOLIC 01296 BUN 19 MG/DL 2014 Unknown COMPREHENSIVE METABOLIC 80785 ALBUMIN 4.3 GM/DL 2014 Unknown COMPREHENSIVE METABOLIC 36470 CHLORIDE 108 MMOL/L 05/10 Unknown COMPREHENSIVE METABOLIC 84906 BILI TOT 0.5 MG/DL 2014 Unknown COMPREHENSIVE METABOLIC 92659 ALK PHOS 68 U/L 2014 Unknown COMPREHENSIVE METABOLIC 85561 SODIUM 140 MMOL/L 05/10 Unknown COMPREHENSIVE METABOLIC 49184 CREATININE 1.08 MG/DL 08/2014 Unknown COMPREHENSIVE METABOLIC 98321 CALCIUM 9.9 MG/DL 2014 Unknown COMPREHENSIVE METABOLIC 01031 POTASSIUM 4.3 MMOL/L 05/10 Unknown COMPREHENSIVE METABOLIC 74761 PROT TOT 7.2 GM/DL 2014 Unknown COMPREHENSIVE METABOLIC 45306 Glucose 94 MG/DL 2014 Unknown COMPREHENSIVE METABOLIC 21281 BICARB 26 MMOL/L 2014 Unknown COMPREHENSIVE METABOLIC 89134 ANION GAP 6 MEQ/L 2014 Unknown GFR CALC 3086632 GFR AA 60.0L ML/MIN 05/10/2014 Unknow n GFR CALC 3510941 GFR NON-AA 49.0L ML/MIN 05/10/2014 Unkno wn GLYCOSYLATED HEMOGLOBIN TEST 91310 A1C HPLC 38829-3 5.6 % 0 05/10/2014 Unknown COMPLETE BLOOD COUNT 5610874 WBC 7.2 10e9/L 05/11/19 15 Unknown COMPLETE BLOOD COUNT 3546202 RBC 4.28 10e12/L 2014 Unknown COMPLETE BLOOD COUNT 1566226 HGB 12.8 g/dL 5 Unknown COMPLETE BLOOD COUNT 5218099 HCT DET 39.3 % 5 Unknown COMPLETE BLOOD COUNT 1546823 MCV 91.8 fL 5 Unknown COMPLETE BLOOD COUNT 3629769 MCH 29.9 pg 5 Unknown COMPLETE BLOOD COUNT 8497965 MCHC 32.6 g/dL 5 Unknown COMPLETE BLOOD COUNT 7465487 PLT 189 10e9/L 05/11/19 15 Unknown COMPLETE BLOOD COUNT 8010624 MPV 11.2 fL 5 Unknown COMPLETE BLOOD COUNT 4957578 CINTHYA % 38.0 % 5 Unknown COMPLETE BLOOD COUNT 0284502 LY % 51.0 % 5 Unknown COMPLETE BLOOD COUNT 3338160 MON % 7.7 % 5 Unknown COMPLETE BLOOD COUNT 3992928 EOS % 2.9 % 5 Unknown COMPLETE BLOOD COUNT 9060446 BASO % 0.4 % 5 Unknown COMPLETE BLOOD COUNT 2792057 RDW 14.0 % 5 Unknown COMPLETE BLOOD COUNT 9767467 ABS CINTHYA 2.74 10e9/L 015 Unknown COMPLETE BLOOD COUNT 2540223 ABS LYMPH 3.67 10e9/L 015 Unknown COMPLETE BLOOD COUNT 7068850 ABS MONO 0.55 10e9/L 015 Unknown COMPLETE BLOOD COUNT 4616710 ABS EOS 0.21 10e9/L 015 Unknown COMPLETE BLOOD COUNT 4824008 ABS BASO 0.03 10e9/L 015 Unknown COMPLETE BLOOD COUNT 8348539 RDW-SD 46.1 fL 5 Unknown FREE T4 01313 FREE T4 1.14 NG/DL 05/10/2014 Unknown GLYCOSYLATED HEMOGLOBIN TEST 64235 A1C HPLC 80960-7 5.2 % 0 03/29/2013 Unknown FREE T4 26312 FREE T4 1.40 NG/DL 03/28/2013 Unknown GFR CALC 8162930 GFR AA >60 ML/MIN 03/28/2013 Unknown GFR CALC 5873143 GFR NON-AA 52.0L ML/MIN 03/28/2013 Unkno wn COMPREHENSIVE METABOLIC 58160 AST 15 U/L 2013 Unknown COMPREHENSIVE METABOLIC 32785 ALT 9 IU/L 2013 Unknown COMPREHENSIVE METABOLIC 33504 BUN 17 MG/DL 2013 Unknown COMPREHENSIVE METABOLIC 34597 ALBUMIN 4.0 GM/DL 2013 Unknown COMPREHENSIVE METABOLIC 71256 CHLORIDE 112 MMOL/L 03/28 Unknown COMPREHENSIVE METABOLIC 15676 BILI TOT 0.5 MG/DL 2013 Unknown COMPREHENSIVE METABOLIC 79781 ALK PHOS 66 U/L 2013 Unknown COMPREHENSIVE METABOLIC 15955 SODIUM 140 MMOL/L 03/28 Unknown COMPREHENSIVE METABOLIC 72865 CREATININE 1.03 MG/DL 03/08 Unknown COMPREHENSIVE METABOLIC 70839 CALCIUM 9.5 MG/DL 2013 Unknown COMPREHENSIVE METABOLIC 69957 POTASSIUM 4.1 MMOL/L 03/28 Unknown COMPREHENSIVE METABOLIC 54045 PROT TOT 6.2 GM/DL 2013 Unknown COMPREHENSIVE METABOLIC 31126 Glucose 102 MG/DL 2013 Unknown COMPREHENSIVE METABOLIC 41691 BICARB 23 MMOL/L 2013 Unknown COMPREHENSIVE METABOLIC 66788 ANION GAP 5 MEQ/L 2013 Unknown THYROID STIMULATING HORMONE 58015 TSH 2.074 uIU/ML 03/28/2013 Unknown VITAMIN B 12 FOLIC ACID 51515|83099 VIT B 12 423 PG/ML 03/08 Unknown VITAMIN B 12 FOLIC ACID 10576|37401 FOLIC ACID 19.7 NG/ML Unknown LIPID GROUP 92658 HDL TEST 40 MG/DL 03/28/2013 Unknown LIPID GROUP 41035 TRIG 145 MG/DL 03/28/2013 Unknown LIPID GROUP 28887 TEST LDL 81 MG/DL 03/28/2013 Unknown LIPID GROUP 09282 CHOL 150 MG/DL 03/28/2013 Unknown LIPID GROUP 15612 RCHOL/HDL 3.75 RATIO 03/28/2013 Unknow n COMPLETE BLOOD COUNT 9267413 WBC 6.0 10e9/L 03/28/19 14 Unknown COMPLETE BLOOD COUNT 7758447 RBC 4.26 10e12/L 2013 Unknown COMPLETE BLOOD COUNT 8551199 HGB 12.7 g/dL 4 Unknown COMPLETE BLOOD COUNT 4112913 HCT DET 38.7 % 4 Unknown COMPLETE BLOOD COUNT 7938551 MCV 90.8 fL 4 Unknown COMPLETE BLOOD COUNT 9283326 MCH 29.8 pg 4 Unknown COMPLETE BLOOD COUNT 0093417 MCHC 32.8 g/dL 4 Unknown COMPLETE BLOOD COUNT 7308214 PLT 178 10e9/L 03/28/19 14 Unknown COMPLETE BLOOD COUNT 1816643 MPV 11.7 fL 4 Unknown COMPLETE BLOOD COUNT 7352504 CINTHYA % 30.5 % 4 Unknown COMPLETE BLOOD COUNT 2706640 LY % 55.4 % 4 Unknown COMPLETE BLOOD COUNT 7199817 MON % 9.0 % 4 Unknown COMPLETE BLOOD COUNT 7000053 EOS % 4.4 % 4 Unknown COMPLETE BLOOD COUNT 5842107 BASO % 0.7 % 4 Unknown COMPLETE BLOOD COUNT 7989238 RDW 13.3 % 4 Unknown COMPLETE BLOOD COUNT 1004126 ABS CINTHYA 1.83 10e9/L 014 Unknown COMPLETE BLOOD COUNT 5518702 ABS LYMPH 3.32 10e9/L 014 Unknown COMPLETE BLOOD COUNT 3235625 ABS MONO 0.54 10e9/L 014 Unknown COMPLETE BLOOD COUNT 9423404 ABS EOS 0.26 10e9/L 014 Unknown COMPLETE BLOOD COUNT 8443628 ABS BASO 0.04 10e9/L 014 Unknown COMPLETE BLOOD COUNT 4695422 RDW-SD 43.2 fL 4 Unknown HEMOGLOBIN A1C (GLYCOSYLATED) 2632357 A1C HPLC 94319-8 5.5 % 02/24/2012 Unknown COMPLETE BLOOD COUNT 7824961 WBC 6.0 10e9/L 02/23/20 12 Unknown COMPLETE BLOOD COUNT 8289833 RBC 4.22 10e12/L 2011 Unknown COMPLETE BLOOD COUNT 3512660 HGB 12.4 g/dL 2 Unknown COMPLETE BLOOD COUNT 0029646 HCT DET 38.2 % 2 Unknown COMPLETE BLOOD COUNT 7000088 MCV 90.5 fL 2 Unknown COMPLETE BLOOD COUNT 5257545 MCH 29.4 pg 2 Unknown COMPLETE BLOOD COUNT 6879084 MCHC 32.5 g/dL 2 Unknown COMPLETE BLOOD COUNT 3193076 PLT 187 10e9/L 02/23/20 12 Unknown COMPLETE BLOOD COUNT 4377404 MPV 11.5 fL 2 Unknown COMPLETE BLOOD COUNT 7059314 CINTHYA % 36.4 % 2 Unknown COMPLETE BLOOD COUNT 3702898 LY % 51.0 % 2 Unknown COMPLETE BLOOD COUNT 3850298 MON % 8.7 % 2 Unknown COMPLETE BLOOD COUNT 9610536 EOS % 3.2 % 2 Unknown COMPLETE BLOOD COUNT 3229913 BASO % 0.7 % 2 Unknown COMPLETE BLOOD COUNT 1845492 RDW 13.7 % 2 Unknown COMPLETE BLOOD COUNT 6713969 ABS CINTHYA 2.18 10e9/L 012 Unknown COMPLETE BLOOD COUNT 9279393 ABS LYMPH 3.06 10e9/L 012 Unknown COMPLETE BLOOD COUNT 4566368 ABS MONO 0.52 10e9/L 012 Unknown COMPLETE BLOOD COUNT 1609295 ABS EOS 0.19 10e9/L 012 Unknown COMPLETE BLOOD COUNT 9017442 ABS BASO 0.04 10e9/L 012 Unknown COMPLETE BLOOD COUNT 1594866 RDW-SD 44.3 fL 2 Unknown LIPID GROUP 76709 HDL TEST 42 MG/DL 02/23/2012 Unknown LIPID GROUP 59493 TRIG 156 MG/DL 02/23/2012 Unknown LIPID GROUP 74204 TEST LDL 80 MG/DL 02/23/2012 Unknown LIPID GROUP 18602 CHOL 153 MG/DL 02/23/2012 Unknown LIPID GROUP 57079 RCHOL/HDL 3.64 RATIO 02/23/2012 Unknow n FREE T4 23796 FREE T4 1.22 NG/DL 02/23/2012 Unknown COMPREHENSIVE METABOLIC 26869 AST 20 U/L 2011 Unknown COMPREHENSIVE METABOLIC 18320 ALT 11 IU/L 2011 Unknown COMPREHENSIVE METABOLIC 92068 BUN 19 MG/DL 2011 Unknown COMPREHENSIVE METABOLIC 90009 ALBUMIN 4.3 GM/DL 2011 Unknown COMPREHENSIVE METABOLIC 50996 CHLORIDE 109 MMOL/L 02/22 Unknown COMPREHENSIVE METABOLIC 21167 BILI TOT 0.6 MG/DL 2011 Unknown COMPREHENSIVE METABOLIC 49198 ALK PHOS 84 U/L 2011 Unknown COMPREHENSIVE METABOLIC 95056 SODIUM 142 MMOL/L 02/22 Unknown COMPREHENSIVE METABOLIC 18391 CREATININE 1.09 MG/DL 02/04 Unknown COMPREHENSIVE METABOLIC 99628 CALCIUM 9.8 MG/DL 2011 Unknown COMPREHENSIVE METABOLIC 50445 POTASSIUM 4.2 MMOL/L 02/22 Unknown COMPREHENSIVE METABOLIC 44901 PROT TOT 6.4 GM/DL 2011 Unknown COMPREHENSIVE METABOLIC 30872 Glucose 89 MG/DL 2011 Unknown COMPREHENSIVE METABOLIC 77967 BICARB 25 MMOL/L 2011 Unknown COMPREHENSIVE METABOLIC 66747 ANION GAP 8 MEQ/L 2011 Unknown GFR CALC [id number] GFR AA 60.0L ML/MIN 02/23/2012 Unknow n GFR CALC [id number] GFR NON-AA 49.0L ML/MIN 02/23/2012 Unkno wn THYROID STIMULATING HORMONE 59557 TSH 2.450 uIU/ML 02/23/2012 Unknown COMPREHENSIVE METABOLIC 93399 AST 22 U/L 2011 Unknown COMPREHENSIVE METABOLIC 53443 ALT 14 IU/L 2011 Unknown COMPREHENSIVE METABOLIC 49697 BUN 21 MG/DL 2011 Unknown COMPREHENSIVE METABOLIC 46518 ALBUMIN 4.3 GM/DL 2011 Unknown COMPREHENSIVE METABOLIC 55284 CHLORIDE 106 MMOL/L 04/01 Unknown COMPREHENSIVE METABOLIC 90382 BILI TOT 0.4 MG/DL 2011 Unknown COMPREHENSIVE METABOLIC 89120 ALK PHOS 80 U/L 2011 Unknown COMPREHENSIVE METABOLIC 69151 SODIUM 141 MMOL/L 04/01 Unknown COMPREHENSIVE METABOLIC 63159 CREATININE 1.13 MG/DL 03/08 Unknown COMPREHENSIVE METABOLIC 18720 CALCIUM 9.4 MG/DL 2011 Unknown COMPREHENSIVE METABOLIC 94329 POTASSIUM 4.3 MMOL/L 04/01 Unknown COMPREHENSIVE METABOLIC 94597 PROT TOT 6.7 GM/DL 2011 Unknown COMPREHENSIVE METABOLIC 23345 Glucose 98 MG/DL 2011 Unknown COMPREHENSIVE METABOLIC 26150 BICARB 25 MMOL/L 2011 Unknown COMPREHENSIVE METABOLIC 03411 ANION GAP 10 MEQ/L 2011 Unknown LIPID GROUP 22442 HDL TEST 44 MG/DL 04/01/2011 Unknown LIPID GROUP 79137 TRIG 164 MG/DL 04/01/2011 Unknown LIPID GROUP 09273 TEST LDL 98 MG/DL 04/01/2011 Unknown LIPID GROUP 75659 CHOL 175 MG/DL 04/01/2011 Unknown LIPID GROUP 69899 RCHOL/HDL 3.98 RATIO 04/01/2011 Unknow n COMPLETE BLOOD COUNT 99330 WBC 6.7 10e9/L 04/01/19 12 Unknown COMPLETE BLOOD COUNT 25013 RBC 4.36 10e12/L 2011 Unknown COMPLETE BLOOD COUNT 69108 HGB 12.9 g/dL 2 Unknown COMPLETE BLOOD COUNT 17198 HCT DET 39.4 % 2 Unknown COMPLETE BLOOD COUNT 36903 MCV 90.4 fL 2 Unknown COMPLETE BLOOD COUNT 71194 MCH 29.6 pg 2 Unknown COMPLETE BLOOD COUNT 79131 MCHC 32.7 g/dL 2 Unknown COMPLETE BLOOD COUNT 14071 PLT 184 10e9/L 04/01/19 12 Unknown COMPLETE BLOOD COUNT 05899 MPV 10.9 fL 2 Unknown COMPLETE BLOOD COUNT 55698 CINTHYA % 41.5 % 2 Unknown COMPLETE BLOOD COUNT 87335 LY % 45.7 % 2 Unknown COMPLETE BLOOD COUNT 34530 MON % 9.4 % 2 Unknown COMPLETE BLOOD COUNT 34943 EOS % 3.0 % 2 Unknown COMPLETE BLOOD COUNT 12990 BASO % 0.4 % 2 Unknown COMPLETE BLOOD COUNT 80751 RDW 13.2 % 2 Unknown COMPLETE BLOOD COUNT 94482 ABS CINTHYA 2.78 10e9/L 012 Unknown COMPLETE BLOOD COUNT 83898 ABS LYMPH 3.06 10e9/L 012 Unknown COMPLETE BLOOD COUNT 75147 ABS MONO 0.63 10e9/L 012 Unknown COMPLETE BLOOD COUNT 94312 ABS EOS 0.20 10e9/L 012 Unknown COMPLETE BLOOD COUNT 47827 ABS BASO 0.03 10e9/L 012 Unknown COMPLETE BLOOD COUNT 91107 RDW-SD 42.3 fL 2 Unknown GFR CALC [id number] GFR AA 57.0L ML/MIN 04/01/2011 Unknow n GFR CALC 8697507 GFR NON-AA 47.0L ML/MIN 04/01/2011 Unkno wn THYROID STIMULATING HORMONE 90863 TSH 2.663 uIU/ML 04/01/2011 Unknown FREE T4 66087 FREE T4 1.15 NG/DL 04/01/2011 Unknown THYROID STIMULATING HORMONE 62161 TSH 1.908 uIU/ML 07/06/2010 Unknown COMPLETE BLOOD COUNT 15394 WBC 6.4 10e9/L 07/07/19 11 Unknown COMPLETE BLOOD COUNT 20320 RBC 3.92 10e12/L 2010 Unknown COMPLETE BLOOD COUNT 33490 HGB 11.8 g/dL 1 Unknown COMPLETE BLOOD COUNT 15304 HCT DET 36.0 % 1 Unknown COMPLETE BLOOD COUNT 52516 MCV 91.8 fL 1 Unknown COMPLETE BLOOD COUNT 10234 MCH 30.1 pg 1 Unknown COMPLETE BLOOD COUNT 02584 MCHC 32.8 g/dL 1 Unknown COMPLETE BLOOD COUNT 89054 PLT 176 10e9/L 07/07/19 11 Unknown COMPLETE BLOOD COUNT 68633 MPV 11.4 fL 1 Unknown COMPLETE BLOOD COUNT 57267 CINTHYA % 50.4 % 1 Unknown COMPLETE BLOOD COUNT 14948 LY % 35.5 % 1 Unknown COMPLETE BLOOD COUNT 98156 MON % 10.2 % 1 Unknown COMPLETE BLOOD COUNT 97810 EOS % 3.3 % 1 Unknown COMPLETE BLOOD COUNT 58177 BASO % 0.6 % 1 Unknown COMPLETE BLOOD COUNT 47964 RDW 13.7 % 1 Unknown COMPLETE BLOOD COUNT 42287 ABS CINTHYA 3.23 10e9/L 011 Unknown COMPLETE BLOOD COUNT 44713 ABS LYMPH 2.27 10e9/L 011 Unknown COMPLETE BLOOD COUNT 69697 ABS MONO 0.65 10e9/L 011 Unknown COMPLETE BLOOD COUNT 49203 ABS EOS 0.21 10e9/L 011 Unknown COMPLETE BLOOD COUNT 64693 ABS BASO 0.04 10e9/L 011 Unknown COMPLETE BLOOD COUNT 39043 RDW-SD 45.3 fL 1 Unknown GFR CALC 2077602 GFR AA >60 ML/MIN 07/06/2010 Unknown GFR CALC 1064078 GFR NON-AA 53.0L ML/MIN 07/06/2010 Unkno wn FREE T4 03923 FREE T4 1.20 NG/DL 07/06/2010 Unknown COMPREHENSIVE METABOLIC 17130 AST 17 U/L 2010 Unknown COMPREHENSIVE METABOLIC 70240 ALT 9 IU/L 2010 Unknown COMPREHENSIVE METABOLIC 31184 BUN 16 MG/DL 2010 Unknown COMPREHENSIVE METABOLIC 27123 ALBUMIN 4.0 GM/DL 2010 Unknown COMPREHENSIVE METABOLIC 10317 CHLORIDE 108 MMOL/L 07/06 Unknown COMPREHENSIVE METABOLIC 36727 BILI TOT 0.5 MG/DL 2010 Unknown COMPREHENSIVE METABOLIC 78623 ALK PHOS 76 U/L 2010 Unknown COMPREHENSIVE METABOLIC 91056 SODIUM 139 MMOL/L 07/06 Unknown COMPREHENSIVE METABOLIC 70991 CREATININE 1.02 MG/DL 04/2010 Unknown COMPREHENSIVE METABOLIC 23258 CALCIUM 9.2 MG/DL 2010 Unknown COMPREHENSIVE METABOLIC 89772 POTASSIUM 4.5 MMOL/L 07/06 Unknown COMPREHENSIVE METABOLIC 36849 PROT TOT 6.1 GM/DL 2010 Unknown COMPREHENSIVE METABOLIC 46062 Glucose 93 MG/DL 2010 Unknown COMPREHENSIVE METABOLIC 54719 BICARB 26 MMOL/L 2010 Unknown COMPREHENSIVE METABOLIC 41263 ANION GAP 5 MEQ/L 2010 Unknown LIPID GROUP 26870 HDL TEST 46 MG/DL 07/06/2010 Unknown LIPID GROUP 64311 TRIG 102 MG/DL 07/06/2010 Unknown LIPID GROUP 91264 TEST LDL 88 MG/DL 07/06/2010 Unknown LIPID GROUP 59421 CHOL 154 MG/DL 07/06/2010 Unknown LIPID GROUP 04746 RCHOL/HDL 3.35 RATIO 07/06/2010 Unknow n Procedures Procedure Codes Date ROUTINE VENIPUNCTURE CPT-4: 89861 03/13/2019 ASSAY THYROID STIM HORMONE CPT-4: 12875 03/13/2019 COMPLETE CBC W/AUTO DIFF WBC CPT-4: 62703 03/13/2019 COMPREHEN METABOLIC PANEL CPT-4: 75450 03/13/2019 ROUTINE VENIPUNCTURE CPT-4: 21557 01/23/2019 LIPID PANEL CPT-4: 70976 01/23/2019 FLU VACC PRSV FREE INC ANTIG 65 AND OLDER CPT-4: 63478 12/26/2018 FLU VACC PRSV FREE INC ANTIG 65 AND OLDER CPT-4: 88061 12/26/2018 ADMIN INFLUENZA VIRUS VAC CPT-4: G0008 12/26/2018 COMPREHEN METABOLIC PANEL CPT-4: 59783 12/15/2018 ROUTINE VENIPUNCTURE CPT-4: 19463 12/15/2018 ROUTINE VENIPUNCTURE CPT-4: 92574 08/14/2018 ASSAY THYROID STIM HORMONE CPT-4: 37880 08/14/2018 COMPREHEN METABOLIC PANEL CPT-4: 21005 08/14/2018 COMPLETE CBC W/AUTO DIFF WBC CPT-4: 08217 08/14/2018 URINALYSIS NONAUTO W/O SCOPE CPT-4: 98288 05/10/2018 URINE CULTURE/ COLONY COUNT CPT-4: 33407 05/10/2018 URINE CULTURE/ COLONY COUNT CPT-4: 93798 12/06/2017 ROUTINE VENIPUNCTURE CPT-4: 30391 11/30/2017 ASSAY OF FREE THYROXINE CPT-4: 90408 11/30/2017 ASSAY THYROID STIM HORMONE CPT-4: 85093 11/30/2017 COMPLETE CBC W/AUTO DIFF WBC CPT-4: 28295 11/30/2017 METABOLIC PANEL TOTAL CA CPT-4: 41915 11/30/2017 FLU VACC PRSV FREE INC ANTIG 65 AND OLDER CPT-4: 44007 11/22/2017 ASSAY, GLUCOSE, BLOOD QUANT CPT-4: 38911 11/22/2017 ADMIN INFLUENZA VIRUS VAC CPT-4: G0008 11/22/2017 ROUTINE VENIPUNCTURE CPT-4: 33724 09/27/2017 COMPREHEN METABOLIC PANEL CPT-4: 16994 09/27/2017 COMPLETE CBC W/AUTO DIFF WBC CPT-4: 82746 09/27/2017 A1C HPLC CPT-4: 34680 09/27/2017 ASSAY OF TROPONIN QUANT CPT-4: 83356 09/27/2017 LIPID PANEL CPT-4: 59451 09/27/2017 THER/PROPH/DIAG INJ SC/IM CPT-4: 26501 05/30/2017 TRIAMCINOLONE ACET INJ NOS CPT-4: J3301 05/30/2017 URINALYSIS NONAUTO W/O SCOPE CPT-4: 46203 04/18/2017 URINE CULTURE/ COLONY COUNT CPT-4: 27156 04/18/2017 FLU VACC PRSV FREE INC ANTIG 65 AND OLDER CPT-4: 95526 12/10/2016 ADMIN INFLUENZA VIRUS VAC CPT-4: G0008 12/10/2016 ROUTINE VENIPUNCTURE CPT-4: 99628 11/01/2016 COMPREHEN METABOLIC PANEL CPT-4: 82534 11/01/2016 COMPLETE CBC W/AUTO DIFF WBC CPT-4: 22378 11/01/2016 LIPID PANEL CPT-4: 70276 11/01/2016 A1C HPLC CPT-4: 95553 11/01/2016 ASSAY THYROID STIM HORMONE CPT-4: 82953 11/01/2016 ROUTINE VENIPUNCTURE CPT-4: 58071 05/13/2016 ASSAY THYROID STIM HORMONE CPT-4: 06102 05/13/2016 COMPREHEN METABOLIC PANEL CPT-4: 18806 05/13/2016 COMPLETE CBC W/AUTO DIFF WBC CPT-4: 63290 05/13/2016 A1C HPLC CPT-4: 14532 05/13/2016 FLU VACC PRSV FREE INC ANTIG 65 AND OLDER CPT-4: 43040 12/12/2015 ADMIN INFLUENZA VIRUS VAC CPT-4: G0008 12/12/2015 ROUTINE VENIPUNCTURE CPT-4: 44112 11/25/2015 ASSAY OF FREE THYROXINE CPT-4: 54676 11/25/2015 ASSAY THYROID STIM HORMONE CPT-4: 30417 11/25/2015 COMPREHEN METABOLIC PANEL CPT-4: 26665 11/25/2015 COMPLETE CBC W/AUTO DIFF WBC CPT-4: 53997 11/25/2015 LIPID PANEL CPT-4: 03705 11/25/2015 A1C HPLC CPT-4: 55494 11/25/2015 URINALYSIS NONAUTO W/O SCOPE CPT-4: 19204 05/21/2015 ROUTINE VENIPUNCTURE CPT-4: 99363 02/19/2015 METABOLIC PANEL TOTAL CA CPT-4: 06184 02/19/2015 PRESCRIP TRANSMIT VIA ERX SY CPT-4: G8553 02/19/2015 FLU VACC PRSV FREE INC ANTIG 65 AND OLDER CPT-4: 36660 12/20/2014 ADMIN INFLUENZA VIRUS VAC CPT-4: G0008 12/20/2014 URINALYSIS NONAUTO W/O SCOPE CPT-4: 84635 11/19/2014 URINE CULTURE/ COLONY COUNT CPT-4: 78486 11/19/2014 ROUTINE VENIPUNCTURE CPT-4: 51019 11/14/2014 ASSAY OF FREE THYROXINE CPT-4: 84710 11/14/2014 ASSAY THYROID STIM HORMONE CPT-4: 62413 11/14/2014 COMPREHEN METABOLIC PANEL CPT-4: 11646 11/14/2014 COMPLETE CBC W/AUTO DIFF WBC CPT-4: 21173 11/14/2014 LIPID PANEL CPT-4: 14673 11/14/2014 A1C HPLC CPT-4: 75282 11/14/2014 CERUM REMOVAL CPT-4: 16285 09/27/2014 PRESCRIP TRANSMIT VIA ERX SY CPT-4: G8553 07/11/2014 FLUZONE, 5ML (Medicare) CPT-4: Q2038 12/21/2013 ADMIN INFLUENZA VIRUS VAC CPT-4: G0008 12/21/2013 PRESCRIP TRANSMIT VIA ERX SY CPT-4: G8553 10/17/2013 PRESCRIP TRANSMIT VIA ERX SY CPT-4: G8553 09/24/2013 PRESCRIP TRANSMIT VIA ERX SY CPT-4: G8553 05/31/2013 ROUTINE VENIPUNCTURE CPT-4: 72572 03/28/2013 ASSAY OF FREE THYROXINE CPT-4: 42731 03/28/2013 ASSAY THYROID STIM HORMONE CPT-4: 83930 03/28/2013 COMPREHEN METABOLIC PANEL CPT-4: 24341 03/28/2013 COMPLETE CBC W/AUTO DIFF WBC CPT-4: 79695 03/28/2013 LIPID PANEL CPT-4: 32955 03/28/2013 A1C HPLC CPT-4: 85145 03/28/2013 VITAMIN B 12 FOLIC ACID CPT-4: 55373|85926 03/28/2013 PRESCRIP TRANSMIT VIA ERX SY CPT-4: G8553 03/26/2013 PRESCRIP TRANSMIT VIA ERX SY CPT-4: G8553 12/19/2012 FLUZONE, 5ML (Medicare) CPT-4: Q2038 11/27/2012 ADMIN INFLUENZA VIRUS VAC CPT-4: G0008 11/27/2012 PRESCRIP TRANSMIT VIA ERX SY CPT-4: G8553 10/04/2012 PRESCRIP TRANSMIT VIA ERX SY CPT-4: G8553 07/14/2012 ROUTINE VENIPUNCTURE CPT-4: 04843 02/23/2012 ASSAY OF FREE THYROXINE CPT-4: 65607 02/23/2012 ASSAY THYROID STIM HORMONE CPT-4: 61112 02/23/2012 COMPREHEN METABOLIC PANEL CPT-4: 08323 02/23/2012 COMPLETE CBC W/AUTO DIFF WBC CPT-4: 59170 02/23/2012 LIPID PANEL CPT-4: 50211 02/23/2012 A1C GLYCOSYLATED HEMOGLOBIN TEST CPT-4: 06995 012 CERUM REMOVAL CPT-4: 17537 02/22/2012 PRESCRIP TRANSMIT VIA ERX SY CPT-4: G8553 02/22/2012 PRESCRIP TRANSMIT VIA ERX SY CPT-4: G8553 12/15/2011 FLUZONE, 5ML (Medicare) CPT-4: Q2038 12/02/2011 ADMIN INFLUENZA VIRUS VAC CPT-4: G0008 12/02/2011 ASSAY, GLUCOSE, BLOOD QUANT CPT-4: 32180 09/21/2011 URINALYSIS NONAUTO W/O SCOPE CPT-4: 88704 09/16/2011 URINE CULTURE/ COLONY COUNT CPT-4: 06974 09/16/2011 ROUTINE VENIPUNCTURE CPT-4: 34041 09/15/2011 ASSAY OF FREE THYROXINE CPT-4: 93777 09/15/2011 ASSAY THYROID STIM HORMONE CPT-4: 57456 09/15/2011 COMPREHEN METABOLIC PANEL CPT-4: 87284 09/15/2011 COMPLETE CBC W/AUTO DIFF WBC CPT-4: 47122 09/15/2011 LIPID PANEL CPT-4: 85084 09/15/2011 ASSAY OF INSULIN CPT-4: 06073 09/15/2011 A1C GLYCOSYLATED HEMOGLOBIN TEST CPT-4: 42368 012 DRAIN/INJECT JOINT/BURSA CPT-4: 43982 08/16/2011 METHYLPREDNISOLONE 40 MG INJ CPT-4: J1030 08/16/2011 TRIAMCINOLONE ACET INJ NOS CPT-4: J3301 08/16/2011 PRESCRIP TRANSMIT VIA ERX SY CPT-4: G8553 08/03/2011 PRESCRIP TRANSMIT VIA ERX SY CPT-4: G8553 07/26/2011 METHYLPREDNISOLONE 40 MG INJ CPT-4: J1030 06/28/2011 DRAIN/INJECT JOINT/BURSA CPT-4: 33003 06/28/2011 TRIAMCINOLONE ACET INJ NOS CPT-4: J3301 06/28/2011 PRESCRIP TRANSMIT VIA ERX SY CPT-4: G8553 06/28/2011 ROUTINE VENIPUNCTURE CPT-4: 57691 04/01/2011 ASSAY OF FREE THYROXINE CPT-4: 69435 04/01/2011 ASSAY THYROID STIM HORMONE CPT-4: 62258 04/01/2011 COMPREHEN METABOLIC PANEL CPT-4: 71679 04/01/2011 COMPLETE CBC W/AUTO DIFF WBC CPT-4: 08055 04/01/2011 LIPID PANEL CPT-4: 05587 04/01/2011 PRESCRIP TRANSMIT VIA ERX SY CPT-4: G8553 03/31/2011 CERUM REMOVAL CPT-4: 37491 02/11/2011 PRESCRIP TRANSMIT VIA ERX SY CPT-4: G8553 02/11/2011 FLUZONE, 5ML (Medicare) CPT-4: Q2038 12/09/2010 ADMIN INFLUENZA VIRUS VAC CPT-4: G0008 12/09/2010 PRESCRIP TRANSMIT VIA ERX SY CPT-4: G8553 10/15/2010 URINALYSIS NONAUTO W/O SCOPE CPT-4: 95970 09/29/2010 URINE CULTURE/ COLONY COUNT CPT-4: 86295 09/29/2010 CUR TOBACCO NON-USER CPT-4: G8457 09/29/2010 ROUTINE VENIPUNCTURE CPT-4: 31226 07/06/2010 COMPLETE CBC W/AUTO DIFF WBC CPT-4: 27710 07/06/2010 COMPREHEN METABOLIC PANEL CPT-4: 63612 07/06/2010 LIPID PANEL CPT-4: 30745 07/06/2010 ASSAY THYROID STIM HORMONE CPT-4: 02534 07/06/2010 ASSAY OF FREE THYROXINE CPT-4: 81783 07/06/2010 PRESCRIP TRANSMIT VIA ERX SY CPT-4: G8553 07/02/2010 INJ TRIGGER POINT 1/2 MUSCL CPT-4: 04950 04/06/2010 TRIAMCINOLONE ACET INJ NOS CPT-4: J3301 04/06/2010 METHYLPREDNISOLONE 40 MG INJ CPT-4: J1030 04/06/2010 THER/PROPH/DIAG INJ SC/IM CPT-4: 11665 04/01/2010 KETOROLAC TROMETHAMINE INJ CPT-4: J1885 04/01/2010 PRESCRIP TRANSMIT VIA ERX SY CPT-4: G8553 01/22/2010 FLU VACCINE 3 YRS & > IM UP 64 CPT-4: 98936 0 ADMIN INFLUENZA VIRUS VAC CPT-4: G0008 12/10/2009 URINALYSIS NONAUTO W/O SCOPE CPT-4: 99441 12/02/2009 URINE CULTURE/ COLONY COUNT CPT-4: 06202 12/02/2009 PRESCRIP TRANSMIT VIA ERX SY CPT-4: G8553 12/02/2009 THER/PROPH/DIAG INJ SC/IM CPT-4: 17908 09/10/2009 VITAMIN B12 INJECTION CPT-4: J3420 09/10/2009 THER/PROPH/DIAG INJ SC/IM CPT-4: 41032 08/11/2009 VITAMIN B12 INJECTION CPT-4: J3420 08/11/2009 ROUTINE VENIPUNCTURE CPT-4: 14925 06/10/2009 Vital Signs Date Vital 04/03/2019 Blood [...] 1: 142/60 Code: 8480-6 BMI: 38.2 Code: 96300-9 Heart Rate 1: 48 bpm Height: 5'2" Respiratory Rate: 20 bpm SpO2: 98% Tempera ture: 36.7 (C) / 98.1 (F) Weight: 212 lbs 01/10/2018 Blood Pressure 1: 142/64 Code: 8480-6 BMI: 38.5 Code: 30548-4 Heart Rate 1: 52 bpm Height: 5'2" Respiratory Rate: 22 bpm SpO2: 96% Tempera ture: 36.1 (C) / 96.9 (F) Weight: 214 lbs 12/06/2017 Blood Pressure 1: 124/80 Code: 8480-6 BMI: 38.3 Code: 45186-7 Heart Rate 1: 68 bpm Height: 5'2" Respiratory Rate: 20 bpm Temperature: 36 .3 (C) / 97.4 (F) Weight: 213 lbs 11/22/2017 Blood Pressure 1: 132/78 Code: 8480-6 BMI: 37.6 Code: 73710-0 Heart Rate 1: 68 bpm Height: 5'2" Respiratory Rate: 20 bpm SpO2: 97% Tempera ture: 36.8 (C) / 98.2 (F) Weight: 209 lbs 10/20/2017 Blood Pressure 1: 150/76 Code: 8480-6 BMI: 38.5 Code: 49144-3 Heart Rate 1: 64 bpm Height: 5'2" Respiratory Rate: 20 bpm SpO2: 97% Tempera ture: 36.2 (C) / 97.2 (F) Weight: 214 lbs 09/27/2017 Blood Pressure 1: 122/74 Code: 8480-6 BMI: 38.2 Code: 67016-8 Heart Rate 1: 64 bpm Height: 5'2" Respiratory Rate: 18 bpm SpO2: 96% Tempera ture: 35.8 (C) / 96.4 (F) Weight: 212 lbs 08/16/2017 Blood Pressure 1: 124/78 Code: 8480-6 BMI: 37.8 Code: 77272-0 Heart Rate 1: 76 bpm Height: 5'2" Respiratory Rate: 20 bpm Temperature: 36 .8 (C) / 98.3 (F) Weight: 210 lbs 07/07/2017 Blood Pressure 1: 136/70 Code: 8480-6 BMI: 38.0 Code: 10990-2 Heart Rate 1: 68 bpm Height: 5'2" Respiratory Rate: 20 bpm SpO2: 97% Tempera ture: 36.8 (C) / 98.2 (F) Weight: 211 lbs 05/30/2017 Blood Pressure 1: 140/65 Code: 8480-6 Heart Rate 1: 75 bpm Respiratory Rate: 24 bpm SpO2: 95% Temperature: 37.0 (C) / 98.6 (F) We ight: 211 lbs 04/18/2017 Blood Pressure 1: 154/70 Code: 8480-6 BMI: 37.6 Code: 16685-0 Heart Rate 1: 76 bpm Height: 5'2" Respiratory Rate: 20 bpm SpO2: 98% Tempera ture: 36.9 (C) / 98.5 (F) Weight: 209 lbs 10/25/2016 Blood Pressure 1: 156/70 Code: 8480-6 BMI: 37.1 Code: 51379-3 Heart Rate 1: 72 bpm Height: 5'2" Respiratory Rate: 20 bpm SpO2: 97% Tempera ture: 37.0 (C) / 98.6 (F) Weight: 206 lbs 09/20/2016 Blood Pressure 1: 152/78 Code: 8480-6 BMI: 36.8 Code: 68784-1 Heart Rate 1: 78 bpm Height: 5'2" Respiratory Rate: 20 bpm SpO2: 98% Tempera ture: 36.1 (C) / 97.0 (F) Weight: 204 lbs 05/12/2016 Blood Pressure 1: 142/70 Code: 8480-6 BMI: 36.9 Code: 40101-9 Heart Rate 1: 64 bpm Height: 5'2" [...] 1: 122/64 Code: 8480-6 BMI: 39.1 Code: 04664-8 Heart Rate 1: 76 bpm Height: 5'2" Respiratory Rate: 20 bpm Temperature: 36 .8 (C) / 98.2 (F) Weight: 217 lbs 05/21/2015 Blood Pressure 1: 144/70 Code: 8480-6 BMI: 39.4 Code: 26361-6 Heart Rate 1: 76 bpm Height: 5'2" Respiratory Rate: 20 bpm Temperature: 36 .6 (C) / 97.9 (F) Weight: 219 lbs 02/19/2015 Blood Pressure 1: 152/60 Code: 8480-6 BMI: 39.6 Code: 86674-6 Heart Rate 1: 84 bpm Height: 5'2" Respiratory Rate: 20 bpm Temperature: 37 .0 (C) / 98.6 (F) Weight: 220 lbs 11/13/2014 Blood Pressure 1: 146/76 Code: 8480-6 BMI: 39.8 Code: 64640-6 Heart Rate 1: 88 bpm Height: 5'2" Respiratory Rate: 20 bpm Temperature: 37 .0 (C) / 98.6 (F) Weight: 221 lbs 09/27/2014 Blood Pressure 1: 132/70 Code: 8480-6 BMI: 39.1 Code: 30113-3 Heart Rate 1: 88 bpm Height: 5'2" Respiratory Rate: 20 bpm Temperature: 36 .4 (C) / 97.6 (F) Weight: 217 lbs 07/11/2014 Blood Pressure 1: 132/66 Code: 8480-6 BMI: 39.9 Code: 74911-6 Heart Rate 1: 72 bpm Height: 5'2" Respiratory Rate: 20 bpm Temperature: 36 .9 (C) / 98.4 (F) Weight: 218 lbs 05/23/2014 Blood Pressure 1: 136/80 Code: 8480-6 Heart Rate 1: 76 bpm Respiratory Rate: 20 bpm Temperature: 36.7 (C) / 98.0 (F) Weight: 224 lbs 03/20/2014 Blood Pressure 1: 134/78 Code: 8480-6 BMI: 39.7 Code: 16649-7 Heart Rate 1: 84 bpm Height: 5'2" Respiratory Rate: 20 bpm Temperature: 36 .7 (C) / 98.0 (F) Weight: 217 lbs 10/17/2013 Blood Pressure 1: 146/78 Code: 8480-6 BMI: 39.5 Code: 62735-4 Heart Rate 1: 82 bpm Height: 5'2" Respiratory Rate: 18 bpm Temperature: 35 .6 (C) / 96.1 (F) Weight: 216 lbs 09/24/2013 Blood Pressure 1: 134/70 Code: 8480-6 BMI: 37.9 Code: 46040-1 Heart Rate 1: 80 bpm Height: 5'3" Respiratory Rate: 20 bpm Temperature: 36 .8 (C) / 98.2 (F) Weight: 214 lbs 05/31/2013 Blood Pressure 1: 132/70 Code: 8480-6 BMI: 37.6 Code: 74566-4 Heart Rate 1: 80 bpm Height: 5'3" Respiratory Rate: 20 bpm Temperature: 36 .8 (C) / 98.3 (F) Weight: 212 lbs 03/26/2013 Blood Pressure 1: 116/74 Code: 8480-6 Heart Rate 1: 68 bpm Respiratory Rate: 20 bpm Temperature: 36.2 (C) / 97.1 (F) Weight: 212 lbs 12/19/2012 Blood Pressure 1: 132/82 Code: 8480-6 BMI: 37.4 Code: 92263-5 Heart Rate 1: 76 bpm Height: 5'3" Respiratory Rate: 20 bpm Temperature: 36 .7 (C) / 98.0 (F) Weight: 211 lbs 12/04/2012 Blood Pressure 1: 130/76 Code: 8480-6 He art Rate 1: 78 bpm 11/27/2012 Blood Pressure 1: 140/82 Code: 8480-6 BMI: 36.8 Code: 34648-3 Heart Rate 1: 66 bpm Height: 5'3" Respiratory Rate: 20 bpm Temperature: 36 .1 (C) / 96.9 (F) Weight: 208 lbs 10/04/2012 Blood Pressure 1: 138/80 Code: 8480-6 BMI: 36.4 Code: 21879-6 Heart Rate 1: 72 bpm Height: 5'4" Respiratory Rate: 20 bpm Temperature: 36 .7 (C) / 98.0 (F) Weight: 212 lbs 07/27/2012 Blood Pressure 1: 124/70 Code: 8480-6 BMI: 36.9 Code: 23792-9 Heart Rate 1: 60 bpm Height: 5'4" Temperature: 36.1 (C) / 97.0 (F) Weight: 215 lbs 07/14/2012 Blood Pressure 1: 132/86 Code: 8480-6 BMI: 36.9 Code: 07903-8 Heart Rate 1: 76 bpm Height: 5'4" Respiratory Rate: 20 bpm Temperature: 36 .8 (C) / 98.2 (F) Weight: 215 lbs 06/08/2012 Blood Pressure 1: 134/82 Code: 8480-6 BMI: 36.6 Code: 07980-2 Heart Rate 1: 72 bpm Height: 5'4" Respiratory Rate: 20 bpm Temperature: 36 .3 (C) / 97.4 (F) Weight: 213 lbs 02/22/2012 Blood Pressure 1: 142/80 Code: 8480-6 BMI: 37.1 Code: 01627-2 Heart Rate 1: 76 bpm Height: 5'4" Respiratory Rate: 20 bpm Temperature: 36 .8 (C) / 98.3 (F) Weight: 216 lbs 12/28/2011 Blood Pressure 1: 128/68 Code: 8480-6 BMI: 37.6 Code: 90262-4 Heart Rate 1: 72 bpm Height: 5'4" [...] 1: 128/78 Code: 8480-6 BMI: 38.1 Code: 26433-0 Heart Rate 1: 84 bpm Height: 5'4" Respiratory Rate: 20 bpm Temperature: 36 .9 (C) / 98.4 (F) Weight: 222 lbs 08/16/2011 Blood Pressure 1: 138/80 Code: 8480-6 BMI: 37.9 Code: 89506-0 Heart Rate 1: 74 bpm Height: 5'4" Temperature: 36.1 (C) / 97.0 (F) Weight: 221 lbs 08/03/2011 Blood Pressure 1: 126/78 Code: 8480-6 BMI: 38.4 Code: 01959-5 Heart Rate 1: 72 bpm Height: 5'4" Respiratory Rate: 20 bpm Temperature: 36 .7 (C) / 98.0 (F) Weight: 224 lbs 07/26/2011 Blood Pressure 1: 138/72 Code: 8480-6 BMI: 38.4 Code: 66305-0 Heart Rate 1: 72 bpm Height: 5'4" Respiratory Rate: 20 bpm Temperature: 36 .6 (C) / 97.9 (F) Weight: 224 lbs 06/28/2011 Blood Pressure 1: 122/78 Code: 8480-6 BMI: 38.8 Code: 83657-9 Heart Rate 1: 88 bpm Height: 5'4" Respiratory Rate: 20 bpm Temperature: 36 .6 (C) / 97.8 (F) Weight: 226 lbs 03/31/2011 Blood Pressure 1: 116/60 Code: 8480-6 BMI: 38.1 Code: 69036-2 Heart Rate 1: 92 bpm Height: 5'4" Respiratory Rate: 20 bpm Temperature: 36 .8 (C) / 98.2 (F) Weight: 222 lbs 02/11/2011 Blood Pressure 1: 118/62 Code: 8480-6 BMI: 37.9 Code: 36911-9 Heart Rate 1: 80 bpm Height: 5'4" Temperature: 36.5 (C) / 97.7 (F) Weight: 221 lbs 10/15/2010 Blood Pressure 1: 132/70 Code: 8480-6 Heart Rate 1: 84 bpm Respiratory Rate: 20 bpm Temperature: 36.7 (C) / 98.0 (F) Weight: 221 lbs 09/29/2010 Blood Pressure 1: 114/72 Code: 8480-6 BMI: 37.6 Code: 40933-2 Heart Rate 1: 76 bpm Height: 5'4" [...] 1: 120/70 Code: 8480-6 BMI: 38.3 Code: 16851-3 Heart Rate 1: 88 bpm Height: 5'5" [...] but had more that day. While at [employer] began to feel very ill and became [...] 06/09/2009 Encounters Encounter Performer Location Codes Date ([id number]) OFFICE/OUTPATIENT VISIT EST Diagnosis: Essential (primary) hypertension[ICD10: I10] Diagnosis: Generalized anxiety disorder[ICD10: F41.1] Vikki GUAMAN [employer] CPT-4: 39931 04/03/2019 ([id number]) OFFICE/OUTPATIENT VISIT EST Diagnosis: Essential (primary) hypertension[ICD10: I10] Diagnosis: Palpitations[ICD10: R00.2] Vikki BENJAMIN [employer] CPT-4: 07355 03/20/2019 ([id number]) OFFICE/OUTPATIENT VISIT EST Diagnosis: Essential hypertension[ICD10: I10] Diagnosis: Palpitations[ICD10: R00.2] Diagnosis: Stress reaction[ICD10: F43.0] Vikki GUAMAN DO [facility] CPT-4: 98511 03/13/2019 ([id number]) NURSE/OUTPATIENT VISIT EST Diagnosis: Mixed hyperlipidemia[ICD10: E78.2] Vikki GUAMAN DO [facility] CPT-4: 13813 01/23/2019 ([id number]) NURSE/OUTPATIENT VISIT EST Diagnosis: FLU VACCINE[ICD10: Z23] Vikki BALL DO [facility] CPT-4: 51926 12/26/2018 ([id number]) NURSE/OUTPATIENT VISIT EST Diagnosis: Chronic kidney disease, stage 1[ICD10: N18.1] Vikki GUAMAN DO [facility] CPT-4: 62694 12/15/2018 ([id number]) OFFICE/OUTPATIENT VISIT EST Diagnosis: Acute serous otitis media, left ear[ICD10: H65.02] Jennifer GUAMAN DO [facility] CPT-4: 67153 11/07/2018 ([id number]) OFFICE/OUTPATIENT VISIT EST Diagnosis: Essential (primary) hypertension[ICD10: I10] Diagnosis: 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] Diagnosis: Hypoglycemia, unspecified[ICD10: E16.2] Diagnosis: Other fatigue[ICD10: R53.83] Diagnosis: Urinary tract infection, site not specified[ICD10: N39.0] Vikki GUAMAN DO [facility] CPT-4: 42454 08/14/2018 ([id number]) OFFICE/OUTPATIENT VISIT EST Diagnosis: Essential (primary) hypertension[ICD10: I10] Diagnosis: Gastro-esophageal reflux disease without esophagitis[ICD10: K21.9] Diagnosis: Urinary tract infection, site not specified[ICD10: N39.0] Vikki GUAMAN DO [facility] CPT-4: 26709 05/10/2018 ([id number]) OFFICE/OUTPATIENT VISIT EST Diagnosis: Gastro-esophageal reflux disease without esophagitis[ICD10: K21.9] Diagnosis: Epigastric pain[ICD10: R10.13] Vikki GUAMAN [employer] [facility] CPT-4: 73082 02/14/2018 ([id number]) OFFICE/OUTPATIENT VISIT EST 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] Diagnosis: Essential (primary) hypertension[ICD10: I10] Diagnosis: Generalized anxiety disorder[ICD10: F41.1] Diagnosis: Gastro-esophageal reflux disease without esophagitis[ICD10: K21.9] Vikki GUAMAN [employer] [facility] CPT-4: 03806 01/10/2018 OFFICE/OUTPATIENT VISIT EST Diagnosis: Gastro-esophageal reflux disease without esophagitis[ICD10: K21.9] Diagnosis: Palpitations[ICD10: R00.2] Diagnosis: Urinary tract infection, site not specified[ICD10: N39.0] Diagnosis: Generalized anxiety disorder[ICD10: F41.1] Vikki CID [employer] [facility] CPT-4: 22849 12/06/2017 ([id number]) NURSE/OUTPATIENT VISIT EST Diagnosis: 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] Diagnosis: Hypoglycemia, unspecified[ICD10: E16.2] Diagnosis: Dizziness and giddiness[ICD10: R42] Diagnosis: Occlusion and stenosis of bilateral carotid arteries[ICD10: I65.23] Vikki GUAMAN [employer] [facility] CPT-4: 76580 11/30/2017 OFFICE/OUTPATIENT VISIT EST Diagnosis: Epigastric pain[ICD10: R10.13] Diagnosis: Generalized anxiety disorder[ICD10: F41.1] Diagnosis: FLU VACCINE[ICD10: Z23] Vikki CID [employer] [facility] CPT-4: 73809 11/22/2017 ([id number]) OFFICE/OUTPATIENT VISIT EST Diagnosis: Essential (primary) hypertension[ICD10: I10] Diagnosis: Hypoglycemia, unspecified[ICD10: E16.2] Diagnosis: Gastro-esophageal reflux disease without esophagitis[ICD10: K21.9] Vikki GUAMAN [facility] CPT-4: 13195 10/20/2017 ([id number]) OFFICE/OUTPATIENT VISIT EST Diagnosis: Dizziness and giddiness[ICD10: R42] Jennifer GUAMAN [facility] CPT-4: 29427 09/27/2017 ([id number]) OFFICE/OUTPATIENT VISIT EST Diagnosis: Cervicalgia[ICD10: M54.2] Diagnosis: Other spondylosis with radiculopathy, cervical region[ICD10: M47.22] Vikki GUAMAN [facility] CPT-4: 78565 08/16/2017 ([id number]) OFFICE/OUTPATIENT VISIT EST Diagnosis: Hypoglycemia, unspecified[ICD10: E16.2] Diagnosis: Other spondylosis with radiculopathy, cervical region[ICD10: M47.22] Diagnosis: Vertigo of central origin, 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] Diagnosis: 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] [facility] 22489 07/07/2017 ([id number]) OFFICE/OUTPATIENT VISIT EST Diagnosis: Benign paroxysmal vertigo, bilateral[ICD10: H81.13] Diagnosis: Otalgia, bilateral[ICD10: H92.03] Jennifer GUAMAN [facility] CPT-4: 73675 05/30/2017 ([id number]) OFFICE/OUTPATIENT VISIT EST Diagnosis: Low back pain[ICD10: M54.5] Diagnosis: Radiculopathy, lumbosacral region[ICD10: M54.17] Diagnosis: Left lower quadrant pain[ICD10: R10.32] Vikki Ciscofunmilayosakshi KEELUTHER Alyssa GUAMAN [employer] [facility] CPT-4: 36113 04/18/2017 ([id number]) OFFICE/OUTPATIENT VISIT EST Diagnosis: FLU VACCINE[ICD10: Z23] Vikki Peckfunmilayosakshi [facility] CPT-4: 25741 12/10/2016 ([id number]) OFFICE/OUTPATIENT VISIT EST Diagnosis: Mixed hyperlipidemia[ICD10: E78.2] Diagnosis: Essential (primary) hypertension[ICD10: I10] 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] Diagnosis: Impaired fasting glucose[ICD10: R73.01] Diagnosis: Other fatigue[ICD10: R53.83] Vikki GUAMAN [facility] CPT-4: 08118 11/01/2016 ([id number]) OFFICE/OUTPATIENT VISIT EST Diagnosis: Pain in thoracic spine[ICD10: M54.6] Diagnosis: Other intervertebral disc degeneration, 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] Vikki GUAMAN [facility] CPT-4: 26721 10/25/2016 ([id number]) OFFICE/OUTPATIENT VISIT EST Diagnosis: Left lower quadrant pain[ICD10: R10.32] Diagnosis: Low back pain[ICD10: M54.5] Vikki RUBI [facility] CPT-4: 57850 09/20/2016 ([id number]) OFFICE/OUTPATIENT VISIT EST Diagnosis: Mixed hyperlipidemia[ICD10: E78.2] Diagnosis: Essential (primary) hypertension[ICD10: I10] Diagnosis: Hypoglycemia, unspecified[ICD10: E16.2] Vikki GUAMAN [facility] CPT-4: 63426 05/13/2016 ([id number]) OFFICE/OUTPATIENT VISIT EST Diagnosis: Impaired fasting glucose[ICD10: R73.01] Diagnosis: Mastodynia[ICD10: N64.4] Diagnosis: Mixed hyperlipidemia[ICD10: E78.2] Diagnosis: Essential (primary) hypertension[ICD10: I10] Diagnosis: Other fatigue[ICD10: R53.83] Vikki GUAMAN [facility] CPT-4: 26740 05/12/2016 ([id number]) OFFICE/OUTPATIENT VISIT EST Diagnosis: Acute upper respiratory infection, unspecified[ICD10: J06.9] Yue Moya VIKKI GUAMAN [facility] CPT-4: 93857 03/18/2016 ([id number]) OFFICE/OUTPATIENT VISIT EST Diagnosis: Acute mastoiditis without complications, right ear[ICD10: H70.001] Vikki Deniz GUAMAN [facility] CPT-4: 98698 02/06/2016 ([id number]) OFFICE/OUTPATIENT VISIT EST Diagnosis: FLU VACCINE[ICD10: Z23] Vikki BALL [facility] CPT-4: 67117 12/12/2015 ([id number]) OFFICE/OUTPATIENT VISIT EST Diagnosis: Mixed hyperlipidemia[ICD10: E78.2] Diagnosis: Essential (primary) hypertension[ICD10: I10] 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] Diagnosis: Impaired fasting glucose[ICD10: R73.01] Vikki KEELUTHER Alyssa GUAMAN DO [facility] CPT-4: 29592 11/25/2015 ([id number]) OFFICE/OUTPATIENT VISIT EST Diagnosis: Constipation, unspecified[ICD10: K59.00] Vikki GUAMAN DO [facility] CPT-4: 08089 08/26/2015 ([id number]) OFFICE/OUTPATIENT VISIT EST Diagnosis: Essential (primary) hypertension[ICD10: I10] Diagnosis: Mixed hyperlipidemia[ICD10: E78.2] Diagnosis: Chronic kidney disease, stage 1[ICD10: N18.1] Vikki GUAMAN [facility] CPT-4: 88423 05/21/2015 ([id number]) OFFICE/OUTPATIENT VISIT EST Diagnosis: Muscle weakness (generalized)[ICD10: M62.81] Diagnosis: Dizziness and giddiness[ICD10: R42] Diagnosis: Essential (primary) hypertension[ICD10: I10] Diagnosis: History of falling[ICD10: Z91.81] Vikkiluther KEARNEYJEANNA GUAMAN [facility] CPT-4: 27779 02/19/2015 ([id number]) OFFICE/OUTPATIENT VISIT EST Diagnosis: FLU VACCINE[ICD10: Z23] Vikki Peckbhavya VIKKI Alyssa BALL [facility] CPT-4: 29199 12/20/2014 ([id number]) OFFICE/OUTPATIENT VISIT EST Diagnosis: Acute renal failure[ICD9: 584.9] Diagnosis: POLYURIA[ICD9: 788.42] Vikkiluther KEARNEYQUELINE AlejandraSujata MATY Rees [facility] CPT-4: 17418 11/19/2014 ([id number]) OFFICE/OUTPATIENT VISIT EST Diagnosis: HYPERLIPIDEMIA NEC/NOS[ICD9: 272.4] Diagnosis: HYPERTENSION[ICD9: 401.9] Diagnosis: CAD[ICD9: 414.00] Diagnosis: Hyperglycemia[ICD9: 790.29] Diagnosis: MALAISE AND FATIGUE[ICD9: 780.79] Vikki GUAMAN [employer] [facility] CPT-4: 12496 11/14/2014 ([id number]) OFFICE/OUTPATIENT VISIT EST Diagnosis: MALAISE AND FATIGUE[ICD9: 780.79] Diagnosis: HYPOGLYCEMIA[ICD9: 251.2] Diagnosis: Grieving[ICD9: 309.0] Diagnosis: ABDOMINAL PAIN[ICD9: 789.00] Vikki GUAMAN [employer] [facility] CPT-4: 64072 11/13/2014 OFFICE/OUTPATIENT VISIT EST Diagnosis: CERUMEN IMPACTION[ICD9: 380.4] Diagnosis: EUSTACHIAN TUBE DYSFUNCTION[ICD9: 381.81] Jessenia Penny VIKKI GUAMAN [employer] [facility] CPT-4: 70158 09/27/2014 ([id number]) OFFICE/OUTPATIENT VISIT EST Diagnosis: Leg pain[ICD9: 729.5] Diagnosis: SUPERFIC PHLEBITIS-LEG[ICD9: 451.0] Vikki GUAMAN [employer] [facility] CPT-4: 81980 07/11/2014 ([id number]) OFFICE/OUTPATIENT VISIT EST Diagnosis: Thoracic back pain[ICD9: 724.1] Diagnosis: SPASM OF MUSCLE[ICD9: 728.85] Vikki GUAMAN [employer] [facility] CPT-4: 85527 05/23/2014 ([id number]) OFFICE/OUTPATIENT VISIT EST Diagnosis: DIZZINESS/VERTIGO[ICD9: 780.4] Diagnosis: Benign positional vertigo[ICD9: 386.11] Diagnosis: HYPERTENSION[ICD9: 401.9] Diagnosis: Suspicious nevus[ICD9: 238.2] Vikki GUAMAN [employer] [facility] CPT-4: 69573 03/20/2014 ([id number]) OFFICE/OUTPATIENT VISIT EST Diagnosis: FLU VACCINE[ICD10: Z23] Vikki [facility] CPT-4: 63243 12/21/2013 OFFICE/OUTPATIENT VISIT EST Diagnosis: SINUSITIS, ACUTE[ICD9: 461.9] Diagnosis: EUSTACHIAN TUBE DYSFUNCTION[ICD9: 381.81] [facility]: 19419 10/17/2013 ([id number]) OFFICE/OUTPATIENT VISIT EST Diagnosis: DIZZINESS/VERTIGO[ICD9: 780.4] Diagnosis: HYPERTENSION[ICD9: 401.9] Vikki PECK [facility] CPT-4: 31096 09/24/2013 ([id number]) OFFICE/OUTPATIENT VISIT EST Diagnosis: HYPERTENSION[ICD9: 401.9] Diagnosis: MALAISE AND FATIGUE[ICD9: 780.79] Diagnosis: SINUSITIS, ACUTE[ICD9: 461.9] [facility]: 15032 05/31/2013 ([id number]) OFFICE/OUTPATIENT VISIT EST Diagnosis: HYPERLIPIDEMIA NEC/NOS[ICD9: 272.4] Diagnosis: HYPERTENSION[ICD9: 401.9] Diagnosis: B12 DEFIC ANEMIA NEC[ICD9: 281.1] Diagnosis: HYPOGLYCEMIA[ICD9: 251.2] [facility] 70184 03/28/2013 OFFICE/OUTPATIENT VISIT EST Diagnosis: COUGH[ICD9: 786.2] [facility] 59455 03/26/2013 OFFICE/OUTPATIENT VISIT EST Diagnosis: COUGH[ICD9: 786.2] Diagnosis: URI, ACUTE[ICD9: 465.9] Jessenia [facility] CPT-4: 40626 12/19/2012 ([id number]) OFFICE/OUTPATIENT VISIT EST Diagnosis: HYPERTENSION[ICD9: 401.9] Diagnosis: CEPHALGIA[ICD9: 784.0] Diagnosis: ANXIETY STATE NOS[ICD9: 300.00] Diagnosis: FLU VACCINE[ICD9: V04.81] Vikki VENEGASR [facility] CPT-4: 85559 11/27/2012 ([id number]) OFFICE/OUTPATIENT VISIT EST Diagnosis: DIZZINESS/VERTIGO[ICD9: 780.4] Diagnosis: SINUSITIS, ACUTE[ICD9: 461.9] Diagnosis: Benign positional vertigo[ICD9: 386.11] Vikki GUAMAN [facility] CPT-4: 37310 10/04/2012 OFFICE/OUTPATIENT VISIT EST Diagnosis: OTITIS MEDIA NOS[ICD9: 382.9] Vikki GUAMAN [facility] CPT-4: 49993 07/27/2012 OFFICE/OUTPATIENT VISIT EST Diagnosis: Perforation of ear drum[ICD9: 384.20] Diagnosis: SINUSITIS, ACUTE[ICD9: 461.9] Vikki GUAMAN [facility] CPT-4: 10454 07/14/2012 ([id number]) OFFICE/OUTPATIENT VISIT EST Diagnosis: Mastalgia[ICD9: 611.71] Vikki [facility] CPT-4: 55669 06/08/2012 ([id number]) OFFICE/OUTPATIENT VISIT EST Diagnosis: HYPERLIPIDEMIA NEC/NOS[ICD9: 272.4] Diagnosis: HYPERTENSION[ICD9: 401.9] Diagnosis: DIZZINESS/VERTIGO[ICD9: 780.4] Diagnosis: Hyperglycemia[ICD9: 790.29] Diagnosis: MALAISE AND FATIGUE[ICD9: 780.79] [facility]: 93925 02/23/2012 ([id number]) OFFICE/OUTPATIENT VISIT EST Diagnosis: EUSTACHIAN TUBE DYSFUNCTION[ICD9: 381.81] Diagnosis: DIZZINESS/VERTIGO[ICD9: 780.4] Diagnosis: ABDOMINAL PAIN[ICD9: 789.00] Diagnosis: GERD[ICD9: 530.81] Diagnosis: CERUMEN IMPACTION[ICD9: 380.4] Vikki GUAMAN [facility] CPT-4: 99936 02/22/2012 OFFICE/OUTPATIENT VISIT EST Diagnosis: ABDOMINAL PAIN[ICD9: 789.00] Diagnosis: DYSPEPSIA[ICD9: 536.8] Vikki Rees [facility] CPT-4: 23974 12/28/2011 ([id number]) OFFICE/OUTPATIENT VISIT EST Diagnosis: ABDOMINAL PAIN[ICD9: 789.00] Diagnosis: DYSPEPSIA[ICD9: 536.8] Diagnosis: IBS[ICD9: 564.1] Vikki GUAMAN [facility] CPT - 4: 16807 12/15/2011 OFFICE/OUTPATIENT VISIT EST Diagnosis: DIZZINESS/VERTIGO[ICD9: 780.4] Diagnosis: HYPOGLYCEMIA[ICD9: 251.2] Vikki MARTINEZ [facility] CPT-4: 65034 09/21/2011 ([id number]) OFFICE/OUTPATIENT VISIT EST Diagnosis: URINARY TRACT INFECTION[ICD9: 599.0] Vikki GUAMAN [facility] CPT-4: 43221 09/16/2011 ([id number]) OFFICE/OUTPATIENT VISIT EST Diagnosis: HYPERLIPIDEMIA NEC/NOS[ICD9: 272.4] Diagnosis: HYPERTENSION[ICD9: 401.9] Diagnosis: MALAISE AND FATIGUE[ICD9: 780.79] Diagnosis: DIZZINESS/VERTIGO[ICD9: 780.4] Vikki GUAMAN [facility] CPT-4: 06339 09/15/2011 ([id number]) OFFICE/OUTPATIENT VISIT EST Diagnosis: DIZZINESS/VERTIGO[ICD9: 780.4] Diagnosis: MALAISE AND FATIGUE[ICD9: 780.79] Diagnosis: HYPERTENSION[ICD9: 401.9] Vikki MARTINEZ [facility] CPT-4: 95332 09/13/2011 OFFICE/OUTPATIENT VISIT EST Diagnosis: LUMB/LUMBOSAC DISC DEGEN[ICD9: 722.52] Diagnosis: Radiculopathy of leg[ICD9: 724.4] Diagnosis: 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] Diagnosis: SPINAL ENTHESOPATHY[ICD9: 720.1] Vikki GUAMAN [facility] CPT-4: 56603 08/16/2011 ([id number]) OFFICE/OUTPATIENT VISIT EST Diagnosis: PAIN, LOWER BACK[ICD9: 724.2] Diagnosis: SPASM OF MUSCLE[ICD9: 728.85] Diagnosis: SCIATICA[ICD9: 724.3] Diagnosis: Lumbar degenerative disc disease[ICD9: 722.52] Vikki GUAMAN [facility] CPT-4: 71064 08/03/2011 ([id number]) OFFICE/OUTPATIENT VISIT EST Diagnosis: PAIN IN THORACIC SPINE[ICD9: 724.1] Diagnosis: SPASM OF MUSCLE[ICD9: 728.85] Vikki GUAMAN [facility] CPT-4: 84581 07/26/2011 ([id number]) OFFICE/OUTPATIENT VISIT EST Diagnosis: PAIN, LOWER BACK[ICD9: 724.2] Diagnosis: SPASM OF MUSCLE[ICD9: 728.85] Diagnosis: Sacroiliac dysfunction[ICD9: 739.4] Diagnosis: Lumbar degenerative disc disease[ICD9: 722.52] Vikki GUAMAN [facility] CPT-4: 02577 06/28/2011 OFFICE/OUTPATIENT VISIT EST Diagnosis: MALAISE AND FATIGUE[ICD9: 780.79] Diagnosis: HYPOTENSION[ICD9: 458.9] Diagnosis: CAD[ICD9: 414.00] Vikki GUAMAN [facility] CPT-4: 23736 03/31/2011 OFFICE/OUTPATIENT VISIT EST Diagnosis: SINUSITIS, ACUTE[ICD9: 461.9] Diagnosis: PHARYNGITIS, ACUTE[ICD9: 462] Diagnosis: CERUMEN IMPACTION[ICD9: 380.4] Vikki GUAMAN [facility] CPT-4: 42484 02/11/2011 OFFICE/OUTPATIENT VISIT EST Diagnosis: PAIN IN THORACIC SPINE[ICD9: 724.1] Diagnosis: GERD[ICD9: 530.81] Diagnosis: DIZZINESS/VERTIGO[ICD9: 780.4] Vikki GUAMAN [facility] CPT-4: 38207 10/15/2010 OFFICE/OUTPATIENT VISIT EST Vikki MARTINEZ [facility] CPT- 4: 69093 09/29/2010 ([id number]) OFFICE/OUTPATIENT VISIT EST Vikki [facility] CPT-4: 43782 07/02/2010 ([id number]) OFFICE/OUTPATIENT VISIT, EST Diagnosis: PAIN, LOWER BACK[ICD9: 724.2] Vikki [facility] CPT-4: 62002 04/06/2010 ([id number]) OFFICE/OUTPATIENT VISIT, EST Vikki [facility] CPT-4: 06376 04/01/2010 ([id number]) OFFICE/OUTPATIENT VISIT, EST Vikki [facility] CPT-4: 76357 01/22/2010 ([id number]) OFFICE/OUTPATIENT VISIT, EST Vikki [facility] CPT-4: 90218 12/02/2009 ([id number]) OFFICE/OUTPATIENT VISIT, EST Vikki [facility] CPT-4: 16896 10/21/2009 ([id number]) OFFICE/OUTPATIENT VISIT, EST Vikki [facility] CPT-4: 03788 09/10/2009 ([id number]) OFFICE/OUTPATIENT VISIT, EST Vikki [facility] CPT-4: 13611 08/11/2009 ([id number]) OFFICE/OUTPATIENT VISIT, EST Vikki [facility] CPT-4: 96660 06/09/2009 Plan of Care Planned Activity Notes Codes Status Date Visit Diagnosis Plan: Generalized anxiety disorder Dis cussion: Stable ICD-9 : 300.00 ICD-10 : F41.1 04/03/2019 Visit Diagnosis Plan: Essential (primary) hypertension Discussion: Stable Follow Up: 1 months ICD-9 : 401.9 ICD-10 : I10 04/03/2019 Patient Education: metoprolol tartrate- [employer] [facility] [id number] [email or web address]/resources/[email or web address] Completed 04/03/2019 Visit Diagnosis Plan: Palpitations Discussion: Continu e higher dose of metoprolol ICD-9 : 785.1 ICD-10 : R00.2 03/20/2019 Visit Diagnosis Plan: Essential (primary) hypertension Discussion: Improving with higher dose of metoprolol Recheck 2weeks ICD-9 : 401.9 ICD-10 : I10 03/20/2019 Appointment: Vikki Guamantel: [address] [place] [address] FOLLOW UP 03/20/2019 Appointment: Vikki Guamantel: [address] [place] [address] 03/13/2019--moved up to [facility] 03/13/19 at 4pm (km) [place] 03/15/2019 Visit Diagnosis Plan: Essential hypertension Discussio n: Increase metoprolol to 25mg q AM and 50mg po q pM Recheck 1 week ICD-9 : 401.9 ICD-10 : I10 03/13/2019 Visit Diagnosis Plan: Palpitations Discussion: Check C BC, CMP, TSH ICD-9 : 785.1 ICD-10 : R00.2 03/13/2019 Appointment: Vikki Guamantel: [address] [place] [address] BP CHECK 03/13/2019 Appointment: Vikki Guamantel: [address] [place] [address] ACUTE ILLNESS 03/13/2019 Patient Education: metoprolol tartrate- [employer] [facility] [id number] https://www.[employer].com/samplemd/resources/getResource/61/[email or web address] Completed 03/13/2019 Care Plan: X-RAY EXAM NECK SPINE 4/5VWS LOINC : 12752-6 Pending 03/13/2019 Care Plan: X-RAY EXAM THORAC SPINE4/>VW LOINC : 63528-9 Pending 03/13/2019 Appointment: Vikki Guamanl: [address] [place], [place] [phone] [place] LAB 01/23/2019 Appointment: Vikki Guaman WPtel: [address] [place], [place] [phone] [place] INJECTION 12/26/2018 Patient Education: INFLUENZA VACCINE CDC Completed 12/26/2018 Appointment: Vikki Guaman WPtel: [address] [place], [place] [phone] LAB 12/15/2018 Visit Diagnosis Plan: [...] ICD-10 : H65.02 11/07/2018 Appointment: Jennifer Rosario [address] [place] [address] ACUTE ILLNESS 11/07/2018 Visit Diagnosis Plan: Essential [...] : N39.0 08/14/2018 Appointment: Vikki Guaman WPtel: [address] [place] [address] FOLLOW UP 08/14/2018 Visit Diagnosis Plan: Urinary [...] : I10 05/10/2018 Appointment: Vikki Guaman WPtel: [address] [place], [place] [phone] [place] FOLLOW UP 05/10/2018 Patient Education: metoprolol tartrate- [employer] [facility] [id number] https://www.PrintEco/[employer] Creation/resources/getResource/61/[email or web address] Completed 05/10/2018 Appointment: Vikki Guaman WPtel: [address] [place], [place] [phone] [place] CANCELED 04/21/2018 Visit Diagnosis Plan: Gastro-esophageal reflux disease without esophagitis Discussion: Continue protonix and carafate Proceed with updated EGD ICD-9 : 530.81 ICD-10 : K21.9 02/14/2018 Visit Diagnosis Plan: Epigastric pain Discussion: [facility] k CT abdomen/pelvis due to ongoing abdominal pain ICD-9 : 789.06 ICD-10 : R10.13 02/14/2018 Appointment: Vikki Guaman WPtel: [address] [place], [place] [phone] [place] FOLLOW UP 02/14/2018 Care Plan: CT PELVIS W/O DYE LOINC : 361 08-9 Pending 02/14/2018 Care Plan: CT ABDOMEN W/O DYE LOINC : 36 103-0 Pending 02/14/2018 Care Plan: Referral Order SNOMED-CT : 30 [id number] Pending 02/14/2018 Visit Diagnosis Plan: Atherosclerotic he art disease of tetlin coronary artery without angina pectoris Discussion: S/P [...] ICD-10 : F41.1 01/10/2018 Appointment: Vikki Guamantel: [address] [place], [place] [phone] FOLLOW UP 01/10/2018 Visit Diagnosis Plan: Gastro-esophageal [...] ICD-10 : N39.0 12/06/2017 Appointment: Vikki Guamantel: [address] [place], [place] [phone] FOLLOW UP 12/06/2017 Patient Education: Patient Medication Summary Completed 12/06/2017 Appointment: Vikki Guamantel: [address] [place], [place] [phone] LAB 11/30/2017 Patient Education: Patient Medication Summary [...] : R10.13 11/22/2017 Appointment: Vikki Guaman WPtel: [address] [place] [address] FOLLOW UP 11/22/2017 Patient Education: Patient Medication [...] : E16.2 10/20/2017 Appointment: Vikki Guaman WPtel: [address] [place] [address] ACUTE ILLNESS 10/20/2017 Patient Education: Patient Medication Summary Completed 10/20/2017 Visit Diagnosis Plan: Dizziness and giddiness Discussi on: blood work to be completed in office including cmp, cbc, troponin to rule out glucose intolerance, infection, dehydration. 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 brown's office. will have front office make appt. patient has carotid doppler annually. ICD-9 : 780.4 ICD-10 : R42 09/27/2017 Appointment: Jennifer Rosario [address] [place] [address] ACUTE ILLNESS 09/27/2017 Patient Education: Patient Medication Summary Completed 09/27/2017 Visit Diagnosis Plan: Cervicalgia Discussion: Complete course of PT since symptoms improved Continue stretching exercises Notify if symptoms return or worsen ICD-9 : 723.1 ICD-10 : M54.2 08/16/2017 Appointment: Vikki Guaman WPtel: [address] [place] [address] FOLLOW UP 08/16/2017 Patient Education: Patient Medication [...] E16.2 07/07/2017 Appointment: Vikki Guaman WPtel: [phone] 07/07/2017 Patient Education: Patient Medication Summary Completed 07/07/2017 Care Plan: MRI NECK SPINE W/O DYE LOINC : 50611-0 Pending 07/07/2017 Visit Diagnosis Plan: Benign paroxysmal [...] ICD-10 : H92.03 05/30/2017 Appointment: Jennifer Rosario [address] [place], [place] [phone] ACUTE ILLNESS 05/30/2017 Patient Education: [...] : R10.32 04/18/2017 Appointment: Vikki Guaman WPtel: [address] [place], [place] [phone] ACUTE ILLNESS 04/18/2017 Patient Education: Patient Medication Summary Completed 04/18/2017 Appointment: Vikki Guaman WPtel: [address] [place] [phone] [place] INJECTION 12/10/2016 Patient Education: Patient Medication Summary Completed 12/10/2016 Appointment: Vikki Guaman WPtel: [address] [place], [place] [phone] LAB 11/01/2016 Patient Education: Patient Medication Summary [...] : M54.6 10/25/2016 Appointment: Vikki Guaman WPtel: [address] [place], [place] [phone] FOLLOW UP 10/25/2016 Patient Education: Patient Medication [...] : M54.5 09/20/2016 Appointment: Vikki Guaman WPtel: [address] [place], [place] [phone] ACUTE ILLNESS 09/20/2016 Patient Education: Patient Medication Summary Completed 09/20/2016 Appointment: Vikki Guaman WPtel: [address] [place] [address] LAB 05/13/2016 Patient Education: Patient Medication Summary [...] : R53.83 05/12/2016 Appointment: Vikki Guaman WPtel: [address] [place], [place] [phone] 3/7 confirmed `sl ACUTE ILLNESS 05/12/2016 Patient Education: Patient Medication Summary Completed 05/12/2016 Care Plan: MAMMOGRAM SCREENING LOINC : 2 6347-5 Pending 05/12/2016 Visit Diagnosis Plan: Acute upper respiratory infectio n, unspecified Discussion: Exam is reassuring Likely viral illness Supportive care reviewed and encouraged Follow up PRN ICD-9 : 465.9 ICD-10 : J06.9 03/18/2016 Appointment: Yue Moya [address] [place], [place] [phone] ACUTE ILLNESS 03/18/2016 Patient Education: Patient Medication Summary Completed 03/18/2016 Visit Plan: Supportive care. Rest, Fluid s, Tylenol/Motrin prn fever or bodyaches. Notify if worsening symptoms. 02/06/2016 Appointment: Vikki Guaman WPtel: [address] [place] [address] ACUTE ILLNESS 02/06/2016 Patient Education: Patient Medication Summary Completed 02/06/2016 Appointment: Vikki Guaman WPtel: [address] [place], [place] [phone] US INJECTION 12/12/2015 Patient Education: Patient Medication Summary Completed 12/12/2015 Appointment: Vikki Guaman WPtel: [address] [place], [place] [phone] [place] LAB 11/25/2015 Patient Education: Patient Medication Summary Completed 11/25/2015 Visit Plan: Add miralax daily Use daily probiotic and metamucil and push fluids Notify if worsens/persists 08/26/2015 Appointment: Vikki Guaman WPtel: [address] [place] [address] 08/25/15 confirmed ~sl ACUTE ILLNESS 08/26/2015 Patient Education: Patient Medication Summary Completed 08/26/2015 Visit Plan: No NSAIDs Kidney function di scussed Discussed hydration Monitor lab every 4months so will check CMP, HbA1C next month 05/21/2015 Appointment: Vikki Guaman WPtel: [address] [place] [address] 05/19 confirmed ~sl ACUTE ILLNESS 05/21/2015 Patient Education: Patient Medication Summary Completed 05/21/2015 Visit Plan: Vestibular exercises Refill flonase Strict low Na diet--discussed that needs to read labels Rx for walker with chair given due to muscle weakness/unsteadiness Has carotids and abdominal aorta and legs checked in March Check Chem 7 02/19/2015 Appointment: Vikki Guaman WPtel: [address] [place] [address] 02/18/15 appt confirmed cn FOLLOW UP 02/19 Patient Education: Patient Medication Summary Completed 02/19/2015 Patient Education: Vertigo Completed 1 04/22/2014 Appointment: Vikki Guaman WPtel: [address] [place], [place] [phone] US INJECTION 12/20/2014 Patient Education: Patient Medication Summary Completed 12/20/2014 Appointment: Vikki Guaman WPtel: [address] [place], [place] [phone] US UA 11/19/2014 Patient Education: Patient Medication Summary Completed 11/19/2014 Referral: Edy Cheek WPtel: #1 [facility] Ronny Hoyt [id number] US Referral Completed 11/18/2014 Appointment: Vikki Guaman WPtel: [address] [place] [address] LAB 11/14/2014 Patient Education: Patient Medication Summary Completed 11/14/2014 Visit Plan: Check CMP, CBC, TSH, Free T4 , B12, Lipids, HbA1C Discussed 6 small meals a day each with protein Would likely benefit from antidepressant Update colonoscopy 11/13/2014 Appointment: Vikki Guaman WPtel: [address] [place] [address] 11/12/14 confirmed ACUTE ILLNESS 11/13/2014 Patient Education: Patient Medication Summary Completed 11/13/2014 Visit Plan: Cerumen flush with warm wate r and peroxide - good results Resume Nasonex nasal spray daily Recommended Debrox earwax removal drops 09/27/2014 Appointment: Jessenia Francis WPtel: [address] [place] [address] ACUTE ILLNESS 09/27/2014 Patient Education: Patient Medication Summary Completed 09/27/2014 Visit Plan: Continue aspirin daily Add m eloxicam for 1week Elevate and Ice Call on Tuesday07/11/2014 Appointment: Vikki Guaman WPtel: [address] [place] [address] ACUTE ILLNESS 07/11/2014 Patient Education: Patient Medication Summary Completed 07/11/2014 Visit Plan: Been using baclofen at [facility] and has helped some PT for next 2-4weeks 05/23/2014 Appointment: Vikki Guaman WPtel: [address] [place], [place] [phone] [place] [address] Follow Up 05/23/2014 Patient Education: Patient Medication Summary Completed 05/23/2014 Appointment: Vikki Guaman WPtel: [address] [place], [place] [phone] LAB 05/10/2014 Appointment: Vikki Guaman WPtel: [address] [place], [place] [phone] feeling better, weather - FOLLOW UP 04/07 Referral: Edy Cheek WPtel: #1 [facility] [place] Antwan Borges [id number] [place] Referral Appointment Requested 04/03/2014 Visit Plan: Continue exercise and curren t meds See surgery for removal of right arm lesion 03/20/2014 Appointment: Vikki Guaman WPtel: [address] [place], [place] [phone] FOLLOW UP 03/20/2014 Patient Education: Patient Medication Summary Completed 03/20/2014 Appointment: Vikki Guaman WPtel: [address] [place], [place] [phone] INJECTION 12/21/2013 Patient Education: Patient Medication Summary Completed 12/21/2013 Appointment: Jessenia Francis WPtel: [address] [place], [place] [phone] ACUTE ILLNESS 10/17/2013 Patient Education: Patient Medication Summary Completed 10/17/2013 Visit Plan: Discussed that likely lumbar etiology for leg weakness Will change amlodopine to low dose dyazide and see if helps legs and inner ear 09/24/2013 Appointment: Vikki Guaman WPtel: [address] [place], [place] [id number] FOLLOW UP 09/24/2013 Patient Education: Patient Medication Summary Completed 09/24/2013 Visit Plan: Ceftin and continue claritin /flonase Decrease amlodopine to 2.5mg q HS until fwup with Card due to weakness 05/31/2013 Appointment: Vikki Guaman WPtel: [address] [place] [address] ACUTE ILLNESS 05/31/2013 Patient Education: Patient Medication Summary Completed 05/31/2013 Appointment: Vikki Guaman WPtel: [address] [place] [address] LAB 03/28/2013 Patient Education: Patient Medication Summary Completed 03/28/2013 Appointment: Jessenia Francis WPtel: [address] [place] [address] ACUTE ILLNESS 03/26/2013 Patient Education: Patient Medication Summary Completed 03/26/2013 Visit Plan: Supportive care. Rest, Fluid s, Tylenol prn fever or bodyaches. Notify if worsening symptoms. Ceftin 12/19/2012 Appointment: Jessenia Francis WPtel: [address] [place] [address] ACUTE ILLNESS 12/19/2012 Patient Education: Patient Medication Summary Completed 12/19/2012 Appointment: Vikki Guaman WPtel: [address] [place] [address] BP CHECK 12/04/2012 Patient Education: Patient Medication Summary Completed 12/04/2012 Appointment: Vikki Guaman WPtel: [address] [place] [address] ER Follow UP 11/27/2012 Patient Education: Patient Medication Summary Completed 11/27/2012 Visit Plan: Restart flonase BID Use mecl izine 25mg q HS Vestibular exercises Claritin 10mg q AM See ENT if doesn't resolve 10/04/2012 Appointment: Vikki Guaman WPtel: [address] [place] [address] ACUTE ILLNESS 10/04/2012 Patient Education: Patient Medication Summary Completed 10/04/2012 Visit Plan: Will continue to observe 07/27/2012 Appointment: Vikki Guaman WPtel: [address] [place] [address] FOLLOW UP 07/27/2012 Patient Education: Patient Medication [...] ear recheck. 07/14/2012 Appointment: Evelyn Santos WPtel: [address] [place] [address] ACUTE ILLNESS 07/14/2012 Patient Education: Patient Medication Summary Completed 07/14/2012 Visit Plan: Decrease caffeine intake Kristin ck Bilateral Mammogram with US of left breast 06/08/2012 Appointment: Vikki Guaman WPtel: [address] [place] [address] ACUTE ILLNESS 06/08/2012 Patient Education: Patient Medication Summary Completed 06/08/2012 Appointment: Alisia Campbell WPtel: [address] [place] [address] appt scheduled 04/06 ACUTE ILLNESS 04/10/2012 Appointment: Vikki Guaman WPtel: [address] [place] [address] US LAB 02/23/2012 Patient Education: Patient Medication Summary Completed 02/23/2012 Visit Plan: Continue off carafate and se e how does Continue probiotic Add Vestibular exercises and use meclizine prn Continue Nasonex Check fasting lab including CMP, Lipids, CBC, TSH, Free T4, HbA1C 02/22/2012 Appointment: Vikki Guaman WPtel: [address] [place] [address] FOLLOW UP 02/22/2012 Patient Education: Patient Medication Summary Completed 02/22/2012 Visit Plan: Continue carafate for 4more weeks at current dose then decrease to BID for 2wks then q HS 12/28/2011 Appointment: Vikki Guamantel: [address] [place] [address] FOLLOW UP 12/28/2011 Patient Education: Patient Medication Summary Completed 12/28/2011 Visit Plan: Continue omeprazole Add Judi fate 1gm po q AC Add daily probiotic 12/15/2011 Appointment: Vikki Guaman WPtel: [address] [place] [address] ACUTE ILLNESS 12/15/2011 Patient Education: Patient Medication Summary Completed 12/15/2011 Appointment: Vikki Guamantel: [address] [place] [address] US INJECTION 12/02/2011 Patient Education: Patient Medication Summary Completed 12/02/2011 Visit Plan: Diabetic Diet Accuchecks BID alternating times Hold onglyza and Januvia for now and continue diet and exercise and weight loss and moniter BS Discussed hypoglycemia and snack of peanut butter and crackers with juice or milk 09/21/2011 Appointment: Vikki Guamantel: [address] [place] [address] WORK IN 09/21/2011 Patient Education: Patient Medication Summary Completed 09/21/2011 Appointment: Vikki Guamantel: [address] [place], [place] [id number] UA 09/16/2011 Patient Education: Patient Medication Summary Completed 09/16/2011 Appointment: Vikki Guamantel: [address] [place], [place] [id number] LAB 09/15/2011 Patient Education: Patient Medication Summary Completed 09/15/2011 Appointment: Vikki Guamantel: [address] [place], [place] [id number] ACUTE ILLNESS 09/13/2011 Patient Education: Patient Medication Summary Completed 09/13/2011 Visit Plan: Injection to Right SI joint as above Pt will call in 3 days on pain Has PT starting in 2wks. 08/16/2011 Appointment: Vikki Guamantel: [address] [place] [address] ACUTE ILLNESS 08/16/2011 Patient Education: Patient Medication Summary Completed 08/16/2011 Visit Plan: OMT done Start PT May need u pdated MRI if need to consider epidural Prednisone 08/03/2011 Appointment: Vikki Guaman WPtel: [address] [place] [address] OMT 08/03/2011 Patient Education: Patient Medication Summary Completed 08/03/2011 Visit Plan: Flexeril and Vimovo OMT done Daily stretches 07/26/2011 Appointment: Vikki Guaman WPtel: [address] [place] [address] ACUTE ILLNESS 07/26/2011 Patient Education: Patient Medication Summary Completed 07/26/2011 Visit Plan: OMT done Daily stretches Roque st heat or biofreeze Right SI joint injection Call in 1week Vimovo BID 06/28/2011 Appointment: Vikki Guamantel: [address] [place] [address] ACUTE ILLNESS 06/28/2011 Patient Education: Patient Medication Summary Completed 06/28/2011 Appointment: Vikki Guamantel: [address] [place] [address] US LAB 04/01/2011 Patient Education: Patient Medication Summary Completed 04/01/2011 Visit Plan: Decrease amlodopine to 1.25m g daily Schedule with Cardiology Fasting lab in AM 03/31/2011 Appointment: Vikki Guamantel: [address] [place] [address] ACUTE ILLNESS 03/31/2011 Patient Education: Patient Medication Summary Completed 03/31/2011 Visit Plan: Saline nasal flushes prn. Ty lenol/Motrin prn headache. Notify if persists/symptoms worsening. Cerumen removal from ears as above 02/11/2011 Appointment: Vikki Guaman WPtel: [address] [place] [address] ACUTE ILLNESS 02/11/2011 Patient Education: Patient Medication Summary Completed 02/11/2011 Appointment: Vikki Guaman WPtel: [address] [place] [address] US INJECTION 12/09/2010 Patient Education: Patient Medication Summary Completed 12/09/2010 Visit Plan: Continue vimovo for 1more we ek Increase Omeprazole to BID for 1mo then resume QD if stomach improved Vestibular exercises with meclizine q HS for next week 10/15/2010 Appointment: Vikki Guaman WPtel: [address] [place] [address] FOLLOW UP 10/15/2010 Patient Education: Patient Medication Summary Completed 10/15/2010 Appointment: Vikki Guaman WPtel: [address] [place] [address] ACUTE ILLNESS 09/29/2010 Patient Education: Patient Medication Summary Completed 09/29/2010 Appointment: Vikki Guaman WPtel: [address] [place] [address] LAB 07/06/2010 Patient Education: Patient Medication Summary Completed 07/06/2010 Visit Plan: Saline nasal flushes prn. Ty lenol/Motrin prn headache. Notify if persists/symptoms worsening. Add Veramyst Increase Omeprazole to 20mg po BID 07/02/2010 Appointment: Vikki Guaman WPtel: [address] [place] [address] ACUTE ILLNESS 07/02/2010 Patient Education: Patient Medication Summary Completed 07/02/2010 Appointment: Vikki Guaman WPtel: [address] [place] [address] FOLLOW UP 04/06/2010 Patient Education: Patient Medication Summary Completed 04/06/2010 Appointment: Vikki Guaman WPtel: [address] [place] [address] ACUTE ILLNESS 04/01/2010 Patient Education: Patient Medication Summary Completed 04/01/2010 Visit Plan: Nasocourt sample given. Pt. will notify if symptoms are worse on Tuesday. 01/22/2010 Appointment: Alisia Campbell WPtel: [address] [place] [address] ACUTE ILLNESS 01/22/2010 Patient Education: Patient Medication Summary Completed 01/22/2010 Appointment: Vikki Guaman WPtel: [address] [place] [address] US INJECTION 12/10/2009 Patient Education: Patient Medication Summary Completed 12/10/2009 Appointment: Vikki Guaman WPtel: [address] [place] [address] FOLLOW UP 12/02/2009 Patient Education: Patient Medication Summary Completed 12/02/2009 Patient Education: Lexapro Completed 0 12/02/2009 Visit Plan: May proceed with hiatal ryan ia repair per Card. so will contact Dr. Mariscal's office to proceed with surgery Trial of Lexapro 5mg QD plus use xanax prn 10/21/2009 Appointment: Vikki Guaman WPtel: [address] [place] [address] FOLLOW UP 10/21/2009 Patient Education: Patient Medication Summary Completed 10/21/2009 Visit Plan: B12 given Cont oral B12 and iron Fwup 1mo for B12 Proceed with hiatal hernia repair once card clearance 09/10/2009 Appointment: Vikki Guaman WPtel: [address] [place] [address] FOLLOW UP 09/10/2009 Patient Education: Patient Medication Summary Completed 09/10/2009 Appointment: Vikki Guaman WPtel: [address] [place] [address] FOLLOW UP 08/11/2009 Patient Education: Patient Medication Summary Completed 08/11/2009 Appointment: Vikki Guaman WPtel: [phone] [facility] US LAB 06/10/2009 Patient Education: Patient Medication Summary Completed 06/10/2009 Visit Plan: Check fasting lab in AM--CMP ,Lipids, CBC, Vit D, TSH,FreeT4, B12 06/09/2009 Appointment: Vik[facility]el[facility] [phone] [facility] FOLLOW UP 06/09/2009 Patient Education: Patient Medication Summary Completed 06/09/2009 Referral: Edy Cheek WPtel: #[address] [facility] Referral Appointment Requested Referral: Edy Cheek WPtel: #1 [facility] Referral Initiated Instructions Comment . Supportive care. [...]
--- OUTSIDE RECORDS SUMMARY | 2019-04-25 20:20 | XMS REPORT | CCD ---
Author Author Evelyne Guaman D.O. Organization [facility] Address [address] [place] [address] Phone Care Team Providers Care Adjustment Supervisor Name Role Phone Vikki Guaman D.O. PP Unavailable CCM Unavailable Summary Purpose Interface Exchange Insurance Providers Payer name Policy type / Coverage type Covered alliance party ID Effective Begin Date Effective End Date WPS MEDICARE PART B [place] Medicare Part B [id number] 2017 Unknown [facility] Medicare Part B [id number] Unknown Family history Father Diagnosis Age At Onset Heart disease Unknown Mother Diagnosis Age At Onset Heart disease Unknown Cancer Unknown Social History Social History Element Codes Description Effective Dates Tobacco history SNOMED CT: 791835853 Never smoker 09/29/2010 Marital status Unknown Single [...] hypertension ICD-9: 401.9 ICD-10: I10 09/24/2013 Active Palpitations ICD-9: 785.1 ICD-10: R00.2 12/06/2017 [...] R10.13 11/22/2017 Active 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 01/10/2018 Active Generalized anxiety disorder ICD-9: 300.00 ICD-10: F41.1 11/22/2017 Active Dizziness and giddiness ICD-9: 780.4 ICD-10: [...] Start Date Stop Date Status Fill Instructions Flonase Allergy Relief 50 mcg/actuation nasal spray,suspensi on RxNorm: 7804090 2 [place] Nasal every night at bedtime 03/30/2019 03/30/2019 Inactive simvastatin 40 mg tablet RxNorm: 380209 1 Tablet(s) Oral QD 020 12/24/2019 Active omeprazole 40 mg capsule,delayed release RxNorm: 225867 1 Capsu le(s) Oral QD 03/30/2019 12/24/2019 Active isosorbide mononitrate ER 30 mg tablet,extended release 24 h r RxNorm: 746838 1 Tablet(s) Oral every night at bedtime 03/30/2019 12/25/2019 Active metoprolol tartrate 25 mg tablet RxNorm: 453683 1 Table t(s) Oral QAM and two tablets (50mg) in the evening 03/30/2019 06/27/2019 Active omeprazole 40 mg capsule,delayed release RxNorm: 397781 1 Capsu le(s) Oral QD 03/27/2019 03/29/2019 Inactive Xanax 0.25 mg tablet RxNorm: 192453 TAKE 1 TABLET BY [facility] TWICE DAILY 1 Tablet(s) Oral two times a day as needed as needed for anxiety 03/27/2019 03/27/2019 Inactive simvastatin 40 mg tablet RxNorm: 804549 1 Tablet(s) Oral QD 020 03/29/2019 Inactive metoprolol tartrate 25 mg tablet RxNorm: 387208 1 Table t(s) Oral QAM and two tablets (50mg) in the evening 03/27/2019 03/29/2019 Inactive metoprolol tartrate 25 mg tablet RxNorm: 116161 1 Table t(s) Oral QAM and two tablets (50mg) in the evening 03/20/2019 03/26/2019 Inactive Flonase Allergy Relief 50 mcg/actuation nasal spray,suspensi on RxNorm: 0997371 2 [place] Nasal every night at bedtime 03/13/2019 03/13/2019 Inactive simvastatin 40 mg tablet RxNorm: 811729 1 Tablet(s) PO QD 01/22/2019 03/26/2019 Inactive omeprazole 40 mg capsule,delayed release RxNorm: 748093 1 Capsu le(s) Oral QD 01/10/2019 03/26/2019 Inactive Xanax 0.25 mg tablet RxNorm: 983635 TAKE 1 TABLET BY MOUTH TWIC E DAILY 01/02/2019 03/26/2019 Inactive omeprazole 40 mg capsule,delayed release RxNorm: 808426 1 Capsu le(s) PO QD 12/11/2018 01/09/2019 Inactive metoprolol tartrate 25 mg tablet RxNorm: 680926 1 Tablet(s) PO BID 11/20/2018 03/19/2019 Inactive omeprazole 40 mg capsule,delayed release RxNorm: 735939 1 Capsu le(s) PO QD 11/13/2018 12/10/2018 Inactive Flonase Allergy Relief 50 mcg/actuation nasal spray,suspensi on RxNorm: 4903897 2 [place] NASAL QHS 11/07/2018 03/12/2019 Inactive simvastatin 40 mg tablet RxNorm: 756052 1 Tablet(s) PO QD 10/23/2018 01/20/2019 Inactive simvastatin 40 mg tablet RxNorm: 390439 1 Tablet(s) PO QD 07/24/2018 10/21/2018 Inactive omeprazole 40 mg capsule,delayed release RxNorm: 704233 1 Capsu le(s) PO QD 07/13/2018 11/09/2018 Inactive simvastatin 40 mg tablet RxNorm: 016672 1 Tablet(s) PO QD 06/13/2018 07/12/2018 Inactive omeprazole 40 mg capsule,delayed release RxNorm: 846965 1 Capsu le(s) PO QD 06/13/2018 07/12/2018 Inactive Bactrim DS 800 mg-160 mg tablet RxNorm: 041525 1 Tablet(s) PO BID 0 05/12/2018 05/18/2018 Inactive Bactrim DS 800 mg-160 mg tablet RxNorm: 890631 1 Tablet(s) PO BID 0 05/12/2018 05/11/2018 Inactive Macrobid 100 mg capsule RxNorm: 118778 1 Capsule(s) PO BID 05/11/1905/16/2018 Inactive metoprolol tartrate 25 mg tablet RxNorm: 334928 1 Tablet(s) PO BID 05/10/2018 11/05/2018 Inactive Xanax 0.25 mg tablet RxNorm: 080855 TAKE 1 TABLET BY MOUTH TWIC E DAILY 02/16/2018 01/01/2019 Inactive Xanax 0.25 mg tablet RxNorm: 336435 1 Tablet(s) PO BID 02/14/2018 Inactive Protonix 40 mg tablet,delayed release RxNorm: 000309 1 Tablet(s) PO BID for stomach--replaces omeprazole 01/10/2018 05/09/2018 Inactive Carafate 1 gram tablet RxNorm: 598337 1 Tablet(s) PO AC & HS 201705/09/2018 Inactive Xanax 0.25 mg tablet RxNorm: 602921 1 Tablet(s) PO BID 01/03/201812/2017 Inactive Bactrim DS 800 mg-160 mg tablet RxNorm: 211246 1 Tablet(s) PO BID 1 12/12/2017 Inactive Bactrim DS 800 mg-160 mg tablet RxNorm: 808672 1 Tablet(s) PO BID 1 12/07/2017 Inactive Carafate 1 gram tablet RxNorm: 651979 1 Tablet(s) PO AC & HS 201712/21/2017 Inactive Protonix 40 mg tablet,delayed release RxNorm: 368834 1 Tablet(s) PO BID for stomach--replaces omeprazole 11/22/2017 01/09/2018 Inactive Protonix 40 mg tablet,delayed release RxNorm: 844018 1 Tablet(s) PO BID for stomach--replaces omeprazole 10/20/2017 11/21/2017 Inactive fluticasone 50 mcg/actuation nasal spray,suspension RxNorm: 2719191 2 [place] NASAL QD to each nostril 07/07/2017 08/13/2018 Inactive Nasonex 50 mcg/actuation [place] RxNorm: 4967193 2 [place] NASAL 201707/07/2017 Inactive omeprazole 40 mg capsule,delayed release RxNorm: 786503 1 Capsu le(s) PO QD 04/18/2017 10/19/2017 Inactive simvastatin 40 mg tablet RxNorm: 905029 1 Tablet(s) PO QD TAKE 1 TABLET EVERY DAY 04/18/2017 04/12/2018 Inactive metoprolol tartrate 25 mg tablet RxNorm: 942712 1/2 Tablet(s) PO QD 04/18/2017 01/09/2018 Inactive simvastatin 40 mg tablet RxNorm: 510960 Tablet(s) TAKE 1 TABLET EVERY DAY 10/27/2016 04/17/2017 Inactive metoprolol tartrate 25 mg tablet RxNorm: 795638 1/2 Tablet(s) PO QD 09/20/2016 03/18/2017 Inactive Flonase 50 mcg/actuation nasal spray,suspension RxNorm: 1797 933 2 [place] NASAL BID 09/20/2016 04/17/2017 Inactive omeprazole 40 mg capsule,delayed release RxNorm: 784910 1 Capsu le(s) PO QD 09/08/2016 04/17/2017 Inactive metoprolol tartrate 25 mg tablet RxNorm: 250073 1/2 Tablet(s) PO QD 06/14/2016 09/19/2016 Inactive ciprofloxacin 0.2 % ear drops in a dropperette RxNorm: 80320 6 4 Drop(s) OTIC TID for 1 week 02/06/2016 05/11/2016 Inactive cefdinir 300 mg capsule RxNorm: 474351 2 Capsule(s) PO QD 02/06/2016 02/15/2016 Inactive omeprazole 40 mg capsule,delayed release RxNorm: 169913 TAKE 1 CAPSULE EVERY DAY 11/06/2015 09/08/2016 Inactive simvastatin 40 mg tablet RxNorm: 382115 TAKE 1 TABLET EVERY DAY 05/201510/27/2016 Inactive Flonase 50 mcg/actuation nasal spray,suspension RxNorm: 1797 933 2 [place] NASAL BID 02/19/2015 09/19/2016 Inactive cefuroxime axetil 250 mg tablet RxNorm: 087742 1 Tablet(s) PO BID 0 11/21/2014 11/20/2014 Inactive cefuroxime axetil 250 mg tablet RxNorm: 651155 1 Tablet(s) PO BID 0 11/21/2014 11/27/2014 Inactive omeprazole 40 mg capsule,delayed release RxNorm: 307348 1 Capsu le(s) PO QD 10/09/2014 01/05/2015 Inactive meloxicam 7.5 mg tablet RxNorm: 137233 1 Tablet(s) PO QD 07/11/2014 0 08/09/2014 Inactive loratadine 10 mg tablet RxNorm: 769980 1 Tablet(s) PO QAM for a llergies 10/17/2013 08/13/2018 Inactive Flonase 50 mcg/actuation nasal spray,suspension RxNorm: 8963 23 2 [place] NASAL BID 10/17/2013 02/18/2015 Inactive prednisone 20 mg tablet RxNorm: 084032 2 Tablet(s) PO BID 10/17/2013 10/21/2013 Inactive Dyazide 37.5 mg-25 mg capsule RxNorm: 758701 1 Capsule(s) PO QAM 10/16/2013 Inactive Ceftin 500 mg tablet RxNorm: 580750 1 Tablet(s) PO BID 05/31/201307/2013 Inactive Ceftin 500 mg tablet RxNorm: 053406 1 Tablet(s) PO BID 03/26/2013 Inactive simvastatin 40 mg tablet RxNorm: 343252 Tablet(s) PO TA KE ONE TABLET BY MOUTH EVERY DAY 03/26/2013 10/07/2015 Inactive metoprolol tartrate 25 mg tablet RxNorm: 805024 Tablet( s) PO TAKE ONE-HALF TABLET BY MOUTH EVERY DAY 03/26/2013 11/12/2014 Inactive Ceftin 500 mg tablet RxNorm: 398480 1 Tablet(s) PO BID 12/19/2012 Inactive loratadine 10 mg tablet RxNorm: 025604 1 Tablet(s) PO QAM for a llergies 10/04/2012 12/02/2012 Inactive omeprazole 20 mg capsule,delayed release RxNorm: 380139 Capsule(s) PO TAKE ONE CAPSULE BY MOUTH TWICE DAILY 08/09/2012 10/08/2014 Inactive omeprazole 20 mg capsule,delayed release RxNorm: 957618 1 Capsu le(s) PO BID 08/09/2012 05/09/2018 Inactive Augmentin 875 mg-125 mg tablet RxNorm: 857896 1 Tablet(s) PO Q12H 0 07/14/2012 07/23/2012 Inactive Floxin Otic Drops 1 bottle Drops RxNorm: 5 Drop(s) OTIC BID 07/20/2012 Inactive metoprolol tartrate 25 mg tablet RxNorm: 329392 Tablet( s) PO TAKE ONE-HALF TABLET BY MOUTH EVERY DAY 04/11/2012 03/25/2013 Inactive simvastatin 40 mg tablet RxNorm: 435195 Tablet(s) PO TA KE ONE TABLET BY MOUTH EVERY DAY 04/11/2012 03/25/2013 Inactive lancets RxNorm: Misc Miscellaneous USE ONE TO CH JEFFERY GLUCOSE EVERY DAY 04/04/2012 05/09/2018 Inactive Carafate 1 gram tablet RxNorm: 406200 1 Tablet(s) PO AC & HS 201111/12/2014 Inactive Flagyl 500 mg tablet RxNorm: 852211 1 Tablet(s) PO TID 12/15/2011 Inactive Carafate 1 gram tablet RxNorm: 759913 1 Tablet(s) PO AC & HS 201102/12/2012 Inactive One Touch Test strips RxNorm: Miscellaneous QD 09/21/2011 05/09/2018 Inactive one touch ultra mini test strips Protonix 40 mg Tab RxNorm: 632865 1 Tablet(s) PO QD 09/13/20112011 Inactive Protonix 40 mg Tab RxNorm: 161943 1 Tablet(s) PO QD 09/13/20112011 Inactive prednisone 20 mg Tab RxNorm: 225299 1 Tablet(s) PO BID 08/03/201106/2011 Inactive Flexeril 5 mg Tab RxNorm: 661095 1 Tablet(s) PO QHS for spasm 07/2508/24/2011 Inactive Flexeril 5 mg Tab RxNorm: 375159 1 Tablet(s) PO QHS for spasm 06/2707/25/2011 Inactive amlodipine 2.5 mg Tab RxNorm: 265940 1/2 Tablet(s) PO QD replac es 5mg dose 03/31/2011 06/27/2011 Inactive simvastatin 40 mg tablet RxNorm: 420554 1 Tablet(s) PO QD 03/31/2011 03/24/2012 Inactive metoprolol tartrate 25 mg tablet RxNorm: 511793 1/2 Tablet(s) PO QD 03/31/2011 03/24/2012 Inactive omeprazole 20 mg capsule,delayed release RxNorm: 035364 1 Capsu le(s) PO BID 03/31/2011 09/12/2011 Inactive cefdinir 300 mg Cap RxNorm: 622731 2 Capsule(s) PO QD 02/11/201102/04 Inactive simvastatin 40 mg Tab RxNorm: 876612 1 Tablet(s) PO QD 02/01/2011 Inactive metoprolol tartrate 25 mg Tab RxNorm: 925238 1/2 Tablet(s) PO QD 03/30/2011 Inactive metoprolol tartrate 25 mg Tab RxNorm: 058095 1/2 Tablet(s) PO QD 12/28/2010 Inactive meclizine 25 mg Tab RxNorm: 1446786 1 Tablet(s) PO QHS 10/15/201011/2010 Inactive for dizziness Ceftin 500 mg Tab RxNorm: 265293 1 Tablet(s) PO BID 07/02/20102010 Inactive omeprazole 20 mg Cap, Delayed Release RxNorm: 749169 1 Capsule( s) PO BID 07/02/2010 12/28/2010 Inactive simvastatin 40 mg Tab RxNorm: 957945 1 Tablet(s) PO QD 06/30/201007/2018 Inactive simvastatin 40 mg Tab RxNorm: 009118 1 Tablet(s) PO QD 06/30/2010 Inactive simvastatin 40 mg Tab RxNorm: 653594 1 Tablet(s) PO QD 02/25/2010 Inactive Tessalon Perles 100 mg Cap RxNorm: 246591 1 Capsule(s) PO Q6-8H 01/28/2010 Inactive cefdinir 300 mg Cap RxNorm: 264521 1 Capsule(s) PO BID 01/22/2010 Inactive Lexapro 10 mg Tab RxNorm: 746143 1 Tablet(s) PO QD 12/02/2009 010 Inactive Cipro 250 mg Tab RxNorm: 359853 1 Tablet(s) PO BID 12/02/2009 010 Inactive Wellbutrin XL 150 mg 24 hr Tab RxNorm: 920572 1 Tablet(s) PO QAM 08/07/2009 Inactive Fish Oil 1,000 mg Cap RxNorm: 1 Capsule(s) PO QD No Start Date Active Tylenol Extra Strength 500 mg tablet RxNorm: 484444 1/2 Tablet( s) PO as needed No Start Date Active nitroglycerin 0.4 mg sublingual tablet RxNorm: 779697 Tablet(s) SL as needed No Start Date Active Calcium with Vitamin D 600 mg (1,500 mg)-400 unit tablet RxN orm: 520135 1 Tablet(s) PO QD No Start Date Active Multivitamin & Mineral Formula Tab RxNorm: 1 Tablet(s) PO QD No St art Date Active vitamin B complex capsule RxNorm: 1 Capsule(s) PO QD No Start Date Active Aspirin 81 mg Tab RxNorm: 904132 1 Tablet(s) PO QD No Start Date Active Vitamin D 1,000 unit Cap RxNorm: 289301 1 Capsule(s) PO QD No Start D ate Active Co Q-10 oral RxNorm: 57998 oral No Start Date Active metoprolol tartrate 25 mg Tab RxNorm: 129716 1/2 Tablet(s) PO QD No Start Date 12/27/2010 Inactive Nasonex 50 mcg/actuation [place] RxNorm: 6069191 2 [place] NASAL No Sta rt Date 07/06/2017 Inactive Vitamin B12 1000mcg Tablet RxNorm: 1 Tablet(s) PO QD No Start Date 11/12/2014 Inactive amlodipine 5 mg Tab RxNorm: 012246 1 Tablet(s) PO QD No Start Date Inactive simvastatin 40 mg tablet RxNorm: 077233 1 Tablet(s) PO QD No Start Date 06/12/2018 Inactive omeprazole 20 mg capsule,delayed release RxNorm: 768933 1 Capsu le(s) PO BID No Start Date 08/08/2012 Inactive omeprazole 40 mg capsule,delayed release RxNorm: 265271 1 Capsu le(s) PO QD No Start Date 06/12/2018 Inactive Nexium 40 mg Cap RxNorm: 981008 1 Capsule(s) PO QD No Start Date 01/05 Inactive Stool Softener 100 mg Tab RxNorm: 0639249 2 Tablet(s) PO BID No Sta rt Date 03/30/2011 Inactive Calcium with Vitamin D 600 mg (1,500 mg)-400 unit Tab RxNorm : 463578 1 Tablet(s) PO QD No Start Date 11/12/2014 Inactive iron 325 mg (65 mg iron) Tab RxNorm: 944990 1 Tablet(s) PO QD No St art Date 11/12/2014 Inactive Flonase 50 mcg/actuation Nasal [place] RxNorm: 106590 2 [place] DEMOND AL BID No Start Date 10/16/2013 Inactive fluticasone 50 mcg/actuation nasal spray,suspension RxNorm: 4532246 2 [place] NASAL QD to each nostril No Start Date 07/06/2017 Inactive Nasonex 50 mcg/actuation [place] RxNorm: 4537842 2 [place] NASAL QD No Start Date 07/06/2017 Inactive hydralazine 50 mg tablet RxNorm: 484631 1 Tablet(s) PO as needed for BP over 160/90 No Start Date 11/21/2017 Inactive Vimovo 500 mg-20 mg 12 hr Tab RxNorm: 264080 1 Tablet(s) PO BID No Start Date 02/10/2011 Inactive Tylenol PM 25 mg-500 mg/15 mL Oral Soln RxNorm: 3308177 1 PO QPM No Start Date 11/12/2014 Inactive Iron (Ferrous Sulfate) Oral RxNorm: Oral No Start Date 03/30/19 12 Inactive Reglan 10 mg Tab RxNorm: 979693 1 Tablet(s) PO TID before meals No Start Date 02/10/2011 Inactive Xanax 1 mg Tab RxNorm: 388741 1/2 Tablet(s) PO QD No Start Date 11/21 Inactive amlodipine 10 mg tablet RxNorm: 654774 1 Tablet(s) PO QD No Start D ate 09/23/2013 Inactive Iron (dried) Oral RxNorm: Oral No Start Date 03/30/2011 Inactiv e metoprolol tartrate 50 mg tablet RxNorm: 388505 1 Tablet(s) PO BID No Start Date 02/13/2018 Inactive Xanax 0.25 mg tablet RxNorm: 638123 1 Tablet(s) PO BID No Start Date 01/02/2018 Inactive lancets RxNorm: Miscellaneous check blood sugar at least once daily No Start Date 04/03/2012 Inactive simvastatin 40 mg Tab RxNorm: 285394 1 Tablet(s) PO QD No Start Date 02/24/2010 Inactive isosorbide mononitrate ER 30 mg tablet,extended release 24 h r RxNorm: 601856 1 Tablet(s) PO QHS No Start Date 08/13/2018 Inactive amlodipine 2.5 mg tablet RxNorm: 076826 1 Tablet(s) PO QD No Start Date 09/23/2013 Inactive isosorbide mononitrate ER 30 mg tablet,extended release 24 h r RxNorm: 373105 1 Tablet(s) PO QHS No Start Date 03/29/2019 Inactive sucralfate 1 gram tablet RxNorm: 698883 1 Tablet(s) PO QID No Start Date 05/09/2018 Inactive Fish Oil Oral RxNorm: Oral No Start Date 03/31/2011 Inactive Multiple Vitamin Oral RxNorm: Oral No Start Date 03/31/2011 Franny ctive metoprolol tartrate 25 mg tablet RxNorm: 394697 1/2 Tablet(s) P O QD No Start Date 06/13/2016 Inactive metoprolol tartrate 50 mg tablet RxNorm: 747541 1/2 Tablet(s) P O BID No Start Date 05/09/2018 Inactive Flonase Allergy Relief 50 mcg/actuation nasal spray,suspensi on RxNorm: 4172315 2 [place] NASAL QHS No Start Date 11/06/2018 Inactive [...] Code Item Item Code Result Date S [facility] Location COMPLETE BLOOD COUNT [id number] WBC 7.1 10e9/L 03/13/19 20 Unknown COMPLETE BLOOD COUNT [id number] RBC 4.16 10e12/L 2019 Unknown COMPLETE BLOOD COUNT [id number] HEMOGLOBIN 12.4 g/dL 03/13/19 20 Unknown COMPLETE BLOOD COUNT [id number] HEMATOCRIT 39.3 % 03/13/19 20 Unknown COMPLETE BLOOD COUNT [id number] MCV 94.5 fL 0 Unknown COMPLETE BLOOD COUNT [id number] MCH 29.8 pg 0 Unknown COMPLETE BLOOD COUNT [id number] MCHC 31.6 g/dL 0 Unknown COMPLETE BLOOD COUNT [id number] PLATELET COUNT 161 10e9/L 09/2019 Unknown COMPLETE BLOOD COUNT [id number] Mean Plt Volume 10.8 fL 09/2019 Unknown COMPLETE BLOOD COUNT [id number] Neut Auto 38.7 % 0 Unknown COMPLETE BLOOD COUNT [id number] Lymph Auto 48.0 % 03/13/19 20 Unknown COMPLETE BLOOD COUNT [id number] [place] Auto 9.5 % 0 Unknown COMPLETE BLOOD COUNT [id number] RDW 13.5 % 0 Unknown COMPLETE BLOOD COUNT [id number] Eos Auto 3.2 % 0 Unknown COMPLETE BLOOD COUNT [id number] Baso Auto 0.6 % 0 Unknown COMPLETE BLOOD COUNT [id number] Neutrophil Abs 2.75 10e9/L Unknown COMPLETE BLOOD COUNT [id number] Lymphocyte Abs 3.41 10e9/L Unknown COMPLETE BLOOD COUNT [id number] Monocyte Abs 0.67 10e9/L 09/2019 Unknown COMPLETE BLOOD COUNT [id number] Eosinophil Abs 0.23 10e9/L Unknown COMPLETE BLOOD COUNT [id number] RDW-SD 44.7 fL 0 Unknown COMPLETE BLOOD COUNT [id number] Basophil Abs 0.04 10e9/L 09/2019 Unknown THYROID STIMULATING HORMONE 21239 TSH 1.677 uIU/mL 03/13/2019 Unknown COMPREHENSIVE METABOLIC 22283 AST 19 U/L 2019 Unknown COMPREHENSIVE METABOLIC 35736 ALT 12 U/L 2019 Unknown COMPREHENSIVE METABOLIC 33248 BUN 17 mg/dL 2019 Unknown COMPREHENSIVE METABOLIC 70547 ALBUMIN 4.2 g/dL 2019 Unknown COMPREHENSIVE METABOLIC 18708 CHLORIDE 103 mmol/L 03/13 Unknown COMPREHENSIVE METABOLIC 09704 Bili Total 0.2 mg/dL 03/13 Unknown COMPREHENSIVE METABOLIC 42687 ALK PHOS 61 U/L 2019 Unknown COMPREHENSIVE METABOLIC 16720 SODIUM 140 mmol/L 03/13 Unknown COMPREHENSIVE METABOLIC 17906 CREATININE 0.95 mg/dL 09/2019 Unknown COMPREHENSIVE METABOLIC 90888 CALCIUM 9.4 mg/dL 2019 Unknown COMPREHENSIVE METABOLIC 19795 POTASSIUM 4.2 mmol/L 03/13 Unknown COMPREHENSIVE METABOLIC 35872 Total Protein 6.5 g/dL Unknown COMPREHENSIVE METABOLIC 31651 Glucose 103 mg/dL 2019 Unknown COMPREHENSIVE METABOLIC 88690 Bicarbonate 26 mmol/L 09/2019 Unknown COMPREHENSIVE METABOLIC 72147 AGAP 11 mmol/L 2019 Unknown GFR CALC [id number] GFR Non Afr Amr 57 mL/min 03/13/2019 Unk nown GFR CALC [id number] GFR Afr Amr >60 mL/min 03/13/2019 Unknow n GFR CALC [id number] GFR Non Afr Amr 52 mL/min 12/15/2018 Unk nown GFR CALC [id number] GFR Afr Amr >60 mL/min 12/15/2018 Unknow n COMPREHENSIVE METABOLIC 31318 AST 17 U/L 2018 Unknown COMPREHENSIVE METABOLIC 43932 ALT 11 U/L 2018 Unknown COMPREHENSIVE METABOLIC 32559 BUN 17 mg/dL 2018 Unknown COMPREHENSIVE METABOLIC 04213 ALBUMIN 3.9 g/dL 2018 Unknown COMPREHENSIVE METABOLIC 62718 CHLORIDE 108 mmol/L 12/15 Unknown COMPREHENSIVE METABOLIC 52225 Bili Total 0.5 mg/dL 12/15 Unknown COMPREHENSIVE METABOLIC 52354 ALK PHOS 72 U/L 2018 Unknown COMPREHENSIVE METABOLIC 74046 SODIUM 142 mmol/L 12/15 Unknown COMPREHENSIVE METABOLIC 51099 CREATININE 1.02 mg/dL 12/05 Unknown COMPREHENSIVE METABOLIC 50699 CALCIUM 9.3 mg/dL 2018 Unknown COMPREHENSIVE METABOLIC 53668 POTASSIUM 4.0 mmol/L 12/15 Unknown COMPREHENSIVE METABOLIC 15499 Total Protein 6.2 g/dL Unknown COMPREHENSIVE METABOLIC 72718 Glucose 93 mg/dL 2018 Unknown COMPREHENSIVE METABOLIC 65813 Bicarbonate 27 mmol/L 12/05 Unknown COMPREHENSIVE METABOLIC 65310 AGAP 7 mmol/L 2018 Unknown GFR CALC [id number] GFR Non Afr Amr 48 mL/min 08/14/2018 Unk nown GFR CALC [id number] GFR Afr Amr 59 mL/min 08/14/2018 Unknown THYROID STIMULATING HORMONE 88861 TSH 1.936 uIU/mL 08/14/2018 Unknown COMPREHENSIVE METABOLIC 91364 AST 18 U/L 2018 Unknown COMPREHENSIVE METABOLIC 30384 ALT 11 U/L 2018 Unknown COMPREHENSIVE METABOLIC 68122 BUN 18 mg/dL 2018 Unknown COMPREHENSIVE METABOLIC 32098 ALBUMIN 4.2 g/dL 2018 Unknown COMPREHENSIVE METABOLIC 00168 CHLORIDE 109 mmol/L 08/14 Unknown COMPREHENSIVE METABOLIC 78185 Bili Total 0.4 mg/dL 08/14 Unknown COMPREHENSIVE METABOLIC 89691 ALK PHOS 64 U/L 2018 Unknown COMPREHENSIVE METABOLIC 47906 SODIUM 142 mmol/L 08/14 Unknown COMPREHENSIVE METABOLIC 60792 CREATININE 1.09 mg/dL 08/05 Unknown COMPREHENSIVE METABOLIC 67764 CALCIUM 9.3 mg/dL 2018 Unknown COMPREHENSIVE METABOLIC 62150 POTASSIUM 4.7 mmol/L 08/14 Unknown COMPREHENSIVE METABOLIC 60790 Total Protein 6.3 g/dL Unknown COMPREHENSIVE METABOLIC 77445 Glucose 84 mg/dL 2018 Unknown COMPREHENSIVE METABOLIC 64173 Bicarbonate 25 mmol/L 08/05 Unknown COMPREHENSIVE METABOLIC 05652 AGAP 8 mmol/L 2018 Unknown COMPLETE BLOOD COUNT [id number] WBC 7.8 10e9/L 08/15/19 19 Unknown COMPLETE BLOOD COUNT [id number] RBC 4.04 10e12/L 2018 Unknown COMPLETE BLOOD COUNT [id number] HEMOGLOBIN 12.2 g/dL 08/15/19 19 Unknown COMPLETE BLOOD COUNT [id number] HEMATOCRIT 38.6 % 08/15/19 19 Unknown COMPLETE BLOOD COUNT [id number] MCV 95.5 fL 9 Unknown COMPLETE BLOOD COUNT [id number] MCH 30.2 pg 9 Unknown COMPLETE BLOOD COUNT [id number] MCHC 31.6 g/dL 9 Unknown COMPLETE BLOOD COUNT [id number] PLATELET COUNT 215 10e9/L 12/2018 Unknown COMPLETE BLOOD COUNT [id number] Mean Plt Volume 11.2 fL 12/2018 Unknown COMPLETE BLOOD COUNT [id number] Neut Auto 45.7 % 9 Unknown COMPLETE BLOOD COUNT [id number] Lymph Auto 42.1 % 08/15/19 19 Unknown COMPLETE BLOOD COUNT [id number] Gillespie Auto 9.2 % 9 Unknown COMPLETE BLOOD COUNT [id number] RDW 13.4 % 9 Unknown COMPLETE BLOOD COUNT [id number] Eos Auto 2.7 % 9 Unknown COMPLETE BLOOD COUNT [id number] Baso Auto 0.3 % 9 Unknown COMPLETE BLOOD COUNT [id number] Neutrophil Abs 3.56 10e9/L Unknown COMPLETE BLOOD COUNT [id number] Lymphocyte Abs 3.28 10e9/L Unknown COMPLETE BLOOD COUNT [id number] Monocyte Abs 0.72 10e9/L 08/05 Unknown COMPLETE BLOOD COUNT [id number] Eosinophil Abs 0.21 10e9/L Unknown COMPLETE BLOOD COUNT [id number] RDW-SD 44.9 fL 9 Unknown COMPLETE BLOOD COUNT [id number] Basophil Abs 0.02 10e9/L 08/05 Unknown COMPLETE BLOOD COUNT [id number] WBC 5.2 10e9/L 12/01/19 18 Unknown COMPLETE BLOOD COUNT [id number] RBC 4.21 10e12/L 2017 Unknown COMPLETE BLOOD COUNT [id number] HEMOGLOBIN 12.8 g/dL 12/01/19 18 Unknown COMPLETE BLOOD COUNT [id number] HEMATOCRIT 39.0 % 12/01/19 18 Unknown COMPLETE BLOOD COUNT [id number] MCV 92.6 fL 8 Unknown COMPLETE BLOOD COUNT [id number] MCH 30.4 pg 8 Unknown COMPLETE BLOOD COUNT [id number] MCHC 32.8 g/dL 8 Unknown COMPLETE BLOOD COUNT [id number] PLATELET COUNT 202 10e9/L Unknown COMPLETE BLOOD COUNT [id number] Mean Plt Volume 10.7 fL Unknown COMPLETE BLOOD COUNT [id number] Neut Auto 40.9 % 8 Unknown COMPLETE BLOOD COUNT [id number] Lymph Auto 46.3 % 12/01/19 18 Unknown COMPLETE BLOOD COUNT [id number] Gillespie Auto 9.3 % 8 Unknown COMPLETE BLOOD COUNT [id number] RDW 13.7 % 8 Unknown COMPLETE BLOOD COUNT [id number] Eos Auto 2.9 % 8 Unknown COMPLETE BLOOD COUNT [id number] Baso Auto 0.6 % 8 Unknown COMPLETE BLOOD COUNT [id number] Neutrophil Abs 2.13 10e9/L Unknown COMPLETE BLOOD COUNT [id number] Lymphocyte Abs 2.41 10e9/L Unknown COMPLETE BLOOD COUNT [id number] Monocyte Abs 0.48 10e9/L 11/06 Unknown COMPLETE BLOOD COUNT [id number] Eosinophil Abs 0.15 10e9/L Unknown COMPLETE BLOOD COUNT [id number] RDW-SD 45.2 fL 8 Unknown COMPLETE BLOOD COUNT [id number] Basophil Abs 0.03 10e9/L 11/06 [place] [address] Glucose 118 mg/dL 11/30 [place] [address] CREATININE 1.01 mg/dL [place] [address] BUN 14 mg/dL 11/30 [place] [address] SODIUM 141 mmol/L 11/06 [place] [address] POTASSIUM 4.0 mmol/L 11/06 [place] [address] CHLORIDE 108 mmol/L 11/06 [place] [address] Bicarbonate 25 mmol/[place] [address] AGAP 8 mmol/L 11/30 [place] [address] CALCIUM 9.6 mg/dL 11/30 Unknown FREE T4 [id number] T4 Free 1.23 ng/dL 11/30/2017 Unknown GFR CALC [id number] GFR Non Afr Amr 53 mL/min 11/30/2017 Unk nown GFR CALC [id number] GFR Afr Amr >60 mL/min 11/30/2017 Unknow n THYROID STIMULATING HORMONE 75811 TSH 2.124 uIU/mL 11/30/2017 Unknown LIP[facility] 69641 Cholesterol 152 mg/dL 09/28/2017 Unkno wn LIPID GROUP 13650 Triglyceride 151 mg/dL 09/28/2017 Unkn own L[facility] GROUP 94797 HDL CHOLESTEROL 47 mg/dL 09/28/2017 U nknown L[facility] GROUP 30473 Chol/HDL Ratio 3.23 ratio 09/28/2017 U nknown LIP[facility] GROUP 67463 NON-HDL Chol 105 mg/dL 09/28/2017 [facility] LIPID GROUP 73728 LDL Cholesterol 75 mg/dL 09/28/2017 U nknown ASSAY OF TROPONIN QUANT 76717 Troponin-I <0.30 ng/mL Unknown COMPREHENSIVE METABOLIC 23588 AST 20 U/L 2017 Unknown COMPREHENSIVE METABOLIC 76154 ALT 14 U/L 2017 Unknown COMPREHENSIVE METABOLIC 92236 BUN 19 mg/dL 2017 Unknown COMPREHENSIVE METABOLIC 79092 ALBUMIN 4.2 g/dL 2017 Unknown COMPREHENSIVE METABOLIC 59784 CHLORIDE 102 mmol/L 09/27 Unknown COMPREHENSIVE METABOLIC 76552 Bili Total 0.4 mg/dL 09/27 Unknown COMPREHENSIVE METABOLIC 13491 ALK PHOS 66 U/L 2017 Unknown COMPREHENSIVE METABOLIC 49312 SODIUM 135 mmol/L 09/27 Unknown COMPREHENSIVE METABOLIC 26754 CREATININE 1.01 mg/dL 09/05 Unknown COMPREHENSIVE METABOLIC 00687 CALCIUM 9.3 mg/dL 2017 Unknown COMPREHENSIVE METABOLIC 30428 POTASSIUM 4.8 mmol/L 09/27 Unknown COMPREHENSIVE METABOLIC 77807 Total Protein 7.0 g/dL Unknown COMPREHENSIVE METABOLIC 30612 Glucose 91 mg/dL 2017 Unknown COMPREHENSIVE METABOLIC 88890 Bicarbonate 23 mmol/L 09/05 Unknown COMPREHENSIVE METABOLIC 86771 AGAP 10 mmol/L 2017 Unknown COMPLETE BLOOD COUNT 1287183 WBC 7.5 10e9/L 09/28/19 18 Unknown COMPLETE BLOOD COUNT [id number] RBC 4.13 10e12/L 2017 Unknown COMPLETE BLOOD COUNT 1846284 HEMOGLOBIN 12.6 g/dL 09/28/19 18 Unknown COMPLETE BLOOD COUNT 8628189 HEMATOCRIT 38.4 % 09/28/19 18 Unknown COMPLETE BLOOD COUNT 3954849 MCV 93.0 fL 8 Unknown COMPLETE BLOOD COUNT 6549152 MCH 30.5 pg 8 Unknown COMPLETE BLOOD COUNT 4053316 MCHC 32.8 g/dL 8 Unknown COMPLETE BLOOD COUNT 9596904 PLATELET COUNT 204 10e9/L Unknown COMPLETE BLOOD COUNT 3471832 Mean Plt Volume 10.9 fL Unknown COMPLETE BLOOD COUNT 7315266 Neut Auto 43.1 % 8 Unknown COMPLETE BLOOD COUNT 2604218 Lymph Auto 45.0 % 09/28/19 18 Unknown COMPLETE BLOOD COUNT 9798440 Gillespie Auto 9.2 % 8 Unknown COMPLETE BLOOD COUNT 3829973 RDW 13.4 % 8 Unknown COMPLETE BLOOD COUNT 4531056 Eos Auto 2.3 % 8 Unknown COMPLETE BLOOD COUNT 7971121 Baso Auto 0.4 % 8 Unknown COMPLETE BLOOD COUNT 1716556 Neutrophil Abs 3.23 10e9/L Unknown COMPLETE BLOOD COUNT 4498660 Lymphocyte Abs 3.38 10e9/L Unknown COMPLETE BLOOD COUNT 9834603 Monocyte Abs 0.69 10e9/L 09/05 Unknown COMPLETE BLOOD COUNT 1222423 Eosinophil Abs 0.17 10e9/L Unknown COMPLETE BLOOD COUNT 0517949 RDW-SD 44.4 fL 8 Unknown COMPLETE BLOOD COUNT [id number] Basophil Abs 0.03 10e9/L 09/05 Unknown GFR CALC 4588949 GFR Non Afr Amr 53 mL/min 09/27/2017 Unk nown GFR CALC 0500223 GFR Afr Amr >60 mL/min 09/27/2017 Unknow n GLYCOSYLATED HEMOGLOBIN TEST 17550 Hgb A1c 68515-1 5.4 % 0 09/27/2017 Unknown MEAN GLUC [id number] Calc Mean Gluc 108 mg/dL 09/27/2017 [facility] own MEAN GLUC 5355963 Calc Mean Gluc 114 mg/dL 11/01/2016 [facility] LIPID GROUP 57586 Cholesterol 146 mg/dL 11/01/2016 [facility] wn LIPID GROUP 07062 Triglyceride 119 mg/dL 11/01/2016 [facility] LIPID GROUP 49143 HDL CHOLESTEROL 47 mg/dL 11/01/2016 U nknown LIPID GROUP 58977 Chol/HDL Ratio 3.11 ratio 11/01/2016 U nknown LIPID GROUP 55226 NON-HDL Chol 99 mg/dL 11/01/2016 [facility] LIPID GROUP 16623 LDL Cholesterol 75 mg/dL 11/01/2016 U nknown GLYCOSYLATED HEMOGLOBIN TEST 63852 Hgb A1c 55155-6 5.6 % 0 11/01/2016 Unknown COMPREHENSIVE METABOLIC 93788 AST 22 U/L 2016 Unknown COMPREHENSIVE METABOLIC 09666 ALT 12 U/L 2016 Unknown COMPREHENSIVE METABOLIC 66185 BUN 17 mg/dL 2016 Unknown COMPREHENSIVE METABOLIC 51861 ALBUMIN 4.0 g/dL 2016 Unknown COMPREHENSIVE METABOLIC 25167 CHLORIDE 110 mmol/L 11/01 Unknown COMPREHENSIVE METABOLIC 34583 Bili Total 0.4 mg/dL 11/01 Unknown COMPREHENSIVE METABOLIC 98939 ALK PHOS 63 U/L 2016 Unknown COMPREHENSIVE METABOLIC 74648 SODIUM 140 mmol/L 11/01 Unknown COMPREHENSIVE METABOLIC 08940 CREATININE 1.05 mg/dL 10/06 Unknown COMPREHENSIVE METABOLIC 97419 CALCIUM 9.2 mg/dL 2016 Unknown COMPREHENSIVE METABOLIC 52741 POTASSIUM 4.2 mmol/L 11/01 Unknown COMPREHENSIVE METABOLIC 10536 Total Protein 6.2 g/dL Unknown COMPREHENSIVE METABOLIC 56992 Glucose 87 mg/dL 2016 Unknown COMPREHENSIVE METABOLIC 96053 Bicarbonate 24 mmol/L 10/06 Unknown COMPREHENSIVE METABOLIC 19167 AGAP 6 mmol/L 2016 Unknown GFR CALC [id number] GFR Non Afr Amr 51 mL/min 11/01/2016 Unk nown GFR CALC 1384152 GFR Afr Amr >60 mL/min 11/01/2016 Unknow n COMPLETE BLOOD COUNT 4872529 WBC 6.7 10e9/L 11/02/19 17 Unknown COMPLETE BLOOD COUNT [id number] RBC 4.04 10e12/L 2016 Unknown COMPLETE BLOOD COUNT 9914525 HEMOGLOBIN 12.1 g/dL 11/02/19 17 Unknown COMPLETE BLOOD COUNT 0672354 HEMATOCRIT 38.0 % 11/02/19 17 Unknown COMPLETE BLOOD COUNT 2625711 MCV 94.1 fL 7 Unknown COMPLETE BLOOD COUNT 6354379 MCH 30.0 pg 7 Unknown COMPLETE BLOOD COUNT 8334464 MCHC 31.8 g/dL 7 Unknown COMPLETE BLOOD COUNT 3622354 PLATELET COUNT 206 10e9/L Unknown COMPLETE BLOOD COUNT 7885405 Mean Plt Volume 11.3 fL Unknown COMPLETE BLOOD COUNT 5440887 Neut Auto 35.8 % 7 Unknown COMPLETE BLOOD COUNT 9847048 Lymph Auto 51.6 % 11/02/19 17 Unknown COMPLETE BLOOD COUNT 6619624 Gillespie Auto 8.8 % 7 Unknown COMPLETE BLOOD COUNT 5467920 RDW 13.5 % 7 Unknown COMPLETE BLOOD COUNT 4645072 Eos Auto 3.4 % 7 Unknown COMPLETE BLOOD COUNT 6181743 Baso Auto 0.4 % 7 Unknown COMPLETE BLOOD COUNT 6509924 Neutrophil Abs 2.40 10e9/L Unknown COMPLETE BLOOD COUNT 5186736 Lymphocyte Abs 3.46 10e9/L Unknown COMPLETE BLOOD COUNT 4168169 Monocyte Abs 0.59 10e9/L 10/06 Unknown COMPLETE BLOOD COUNT 0157369 Eosinophil Abs 0.23 10e9/L Unknown COMPLETE BLOOD COUNT 0778249 RDW-SD 45.3 fL 7 Unknown COMPLETE BLOOD COUNT 7178498 Basophil Abs 0.03 10e9/L 10/06 Unknown THYROID STIMULATING HORMONE 92232 TSH 1.981 uIU/mL 11/01/2016 Unknown COMPLETE BLOOD COUNT 4841087 WBC 6.0 10e9/L 05/14/19 17 Unknown COMPLETE BLOOD COUNT 4545110 RBC 4.29 10e12/L 2016 Unknown COMPLETE BLOOD COUNT 5732600 HEMOGLOBIN 12.9 g/dL 05/14/19 17 Unknown COMPLETE BLOOD COUNT 9144713 HEMATOCRIT 38.4 % 05/14/19 17 Unknown COMPLETE BLOOD COUNT 8521489 MCV 89.5 fL 7 Unknown COMPLETE BLOOD COUNT 1006270 MCH 30.1 pg 7 Unknown COMPLETE BLOOD COUNT 3499332 MCHC 33.6 g/dL 7 Unknown COMPLETE BLOOD COUNT 0075846 PLATELET COUNT 181 10e9/L 11/2016 Unknown COMPLETE BLOOD COUNT 7004908 Mean Plt Volume 11.7 fL 11/2016 Unknown COMPLETE BLOOD COUNT 2462818 Neut Auto 36.9 % 7 Unknown COMPLETE BLOOD COUNT 4425426 Lymph Auto 50.4 % 05/14/19 17 Unknown COMPLETE BLOOD COUNT 4701292 Gillespie Auto 9.0 % 7 Unknown COMPLETE BLOOD COUNT 2386996 RDW 13.7 % 7 Unknown COMPLETE BLOOD COUNT 0401292 Eos Auto 3.4 % 7 Unknown COMPLETE BLOOD COUNT 3543433 Baso Auto 0.3 % 7 Unknown COMPLETE BLOOD COUNT 9349390 Neutrophil Abs 2.21 10e9/L Unknown COMPLETE BLOOD COUNT 2035523 Lymphocyte Abs 3.02 10e9/L Unknown COMPLETE BLOOD COUNT 1827474 Monocyte Abs 0.54 10e9/L 11/2016 Unknown COMPLETE BLOOD COUNT 6803080 Eosinophil Abs 0.20 10e9/L Unknown COMPLETE BLOOD COUNT 8172345 RDW-SD 44.0 fL 7 Unknown COMPLETE BLOOD COUNT 9227133 Basophil Abs 0.02 10e9/L 11/2016 Unknown GLYCOSYLATED HEMOGLOBIN TEST 29105 Hgb A1c 04073-5 5.4 % 0 05/13/2016 Unknown THYROID STIMULATING HORMONE 88584 TSH 2.200 uIU/mL 05/13/2016 Unknown GFR CALC 2105011 GFR Non Afr Amr 50 mL/min 05/13/2016 Unk nown GFR CALC 1286042 GFR Afr Amr >60 mL/min 05/13/2016 Unknow n MEAN GLUC 7522134 Calc Mean Gluc 108 mg/dL 05/13/2016 [facility] own COMPREHENSIVE METABOLIC 94200 AST 18 U/L 2016 Unknown COMPREHENSIVE METABOLIC 54327 ALT 10 U/L 2016 Unknown COMPREHENSIVE METABOLIC 09190 BUN 20 mg/dL 2016 Unknown COMPREHENSIVE METABOLIC 95358 ALBUMIN 4.1 g/dL 2016 Unknown COMPREHENSIVE METABOLIC 52251 CHLORIDE 109 mmol/L 05/13 Unknown COMPREHENSIVE METABOLIC 46152 Bili Total 0.6 mg/dL 05/13 Unknown COMPREHENSIVE METABOLIC 56316 ALK PHOS 64 U/L 2016 Unknown COMPREHENSIVE METABOLIC 99006 SODIUM 141 mmol/L 05/13 Unknown COMPREHENSIVE METABOLIC 24003 CREATININE 1.06 mg/dL 11/2016 Unknown COMPREHENSIVE METABOLIC 53282 CALCIUM 9.9 mg/dL 2016 Unknown COMPREHENSIVE METABOLIC 08588 POTASSIUM 4.2 mmol/L 05/13 Unknown COMPREHENSIVE METABOLIC 56428 Total Protein 6.3 g/dL Unknown COMPREHENSIVE METABOLIC 68841 Glucose 99 mg/dL 2016 Unknown COMPREHENSIVE METABOLIC 38715 Bicarbonate 21 mmol/L 11/2016 Unknown COMPREHENSIVE METABOLIC 05049 AGAP 11 mmol/L 2016 Unknown LIPID GROUP 35904 Cholesterol 169 mg/dL 11/25/2015 [facility] wn LIPID GROUP 31918 Triglyceride 165 mg/dL 11/25/2015 [facility] LIPID GROUP 21504 HDL CHOLESTEROL 43 mg/dL 11/25/2015 U nknown LIPID GROUP 32774 Chol/HDL Ratio 3.93 ratio 11/25/2015 U nknown LIPID GROUP 87110 NON-HDL Chol 126 mg/dL 11/25/2015 [facility] LIPID GROUP 30669 LDL Cholesterol 93 mg/dL 11/25/2015 U [facility] COMPREHENSIVE METABOLIC 14292 AST 18 U/L 2015 Unknown COMPREHENSIVE METABOLIC 63677 ALT 10 U/L 2015 Unknown COMPREHENSIVE METABOLIC 81670 BUN 20 mg/dL 2015 Unknown COMPREHENSIVE METABOLIC 31638 ALBUMIN 3.9 g/dL 2015 Unknown COMPREHENSIVE METABOLIC 90904 CHLORIDE 110 mmol/L 11/24 Unknown COMPREHENSIVE METABOLIC 05627 Bili Total 0.5 mg/dL 11/24 Unknown COMPREHENSIVE METABOLIC 29204 ALK PHOS 72 U/L 2015 Unknown COMPREHENSIVE METABOLIC 93536 SODIUM 141 mmol/L 11/24 Unknown COMPREHENSIVE METABOLIC 57333 CREATININE 1.12 mg/dL 11/06 Unknown COMPREHENSIVE METABOLIC 60417 CALCIUM 9.7 mg/dL 2015 Unknown COMPREHENSIVE METABOLIC 29399 POTASSIUM 4.4 mmol/L 11/24 Unknown COMPREHENSIVE METABOLIC 42356 Total Protein 6.2 g/dL Unknown COMPREHENSIVE METABOLIC 40052 Glucose 90 mg/dL 2015 Unknown COMPREHENSIVE METABOLIC 81471 Bicarbonate 23 mmol/L 11/06 Unknown COMPREHENSIVE METABOLIC 62719 AGAP 8 mmol/L 2015 Unknown GFR CALC 9301459 GFR Non Afr Amr 47 mL/min 11/25/2015 Unk nown GFR CALC 4868865 GFR Afr Amr 57 mL/min 11/25/2015 Unknown GLYCOSYLATED HEMOGLOBIN TEST 43832 Hgb A1c 55876-0 5.5 % 0 11/25/2015 Unknown THYROID STIMULATING HORMONE 21876 TSH 2.537 uIU/mL 11/25/2015 Unknown FREE T4 64919 T4 Free 1.36 ng/dL 11/25/2015 Unknown COMPLETE BLOOD COUNT 9622856 WBC 6.8 10e9/L 11/25/19 16 Unknown COMPLETE BLOOD COUNT 8619116 RBC 4.20 10e12/L 2015 Unknown COMPLETE BLOOD COUNT 8037638 HEMOGLOBIN 12.5 g/dL 11/25/19 16 Unknown COMPLETE BLOOD COUNT 5237788 HEMATOCRIT 38.0 % 11/25/19 16 Unknown COMPLETE BLOOD COUNT 8446788 MCV 90.5 fL 6 Unknown COMPLETE BLOOD COUNT 3678929 MCH 29.8 pg 6 Unknown COMPLETE BLOOD COUNT 6222462 MCHC 32.9 g/dL 6 Unknown COMPLETE BLOOD COUNT 9470213 PLATELET COUNT 197 10e9/L Unknown COMPLETE BLOOD COUNT 9978507 Mean Plt Volume 11.7 fL Unknown COMPLETE BLOOD COUNT 9230413 Neut Auto 41.3 % 6 Unknown COMPLETE BLOOD COUNT 1637310 Lymph Auto 47.1 % 11/25/19 16 Unknown COMPLETE BLOOD COUNT 0326081 Gillespie Auto 7.8 % 6 Unknown COMPLETE BLOOD COUNT 5112167 RDW 13.8 % 6 Unknown COMPLETE BLOOD COUNT 5198199 Eos Auto 3.4 % 6 Unknown COMPLETE BLOOD COUNT 6337333 Baso Auto 0.4 % 6 Unknown COMPLETE BLOOD COUNT 2686215 Neutrophil Abs 2.81 10e9/L Unknown COMPLETE BLOOD COUNT 6201749 Lymphocyte Abs 3.20 10e9/L Unknown COMPLETE BLOOD COUNT 4234624 Monocyte Abs 0.53 10e9/L 11/06 Unknown COMPLETE BLOOD COUNT 0015644 Eosinophil Abs 0.23 10e9/L Unknown COMPLETE BLOOD COUNT 0259542 RDW-SD 44.4 fL 6 Unknown COMPLETE BLOOD COUNT 5152505 Basophil Abs 0.03 10e9/L 11/06 Unknown MEAN GLUC 3054410 Calc Mean Gluc 111 mg/dL 11/25/2015 [place] [address] Glucose 89 MG/DL 02/19 [place] [address] CREATININE 1.12 MG/DL [place] [address] BUN 20 MG/DL 02/19 [place] [address] SODIUM 139 MMOL/L 02/04 [place] [address] POTASSIUM 4.6 MMOL/L 02/04 [place] [address] CHLORIDE 108 MMOL/L 02/04 [place] [address] BICARB 26 MMOL/L 02/19 [place] [address] ANION GAP 5 MEQ/L 02/19 [place] [address] CALCIUM 10.0 MG/DL 02/04 Unknown GFR CALC 6504336 GFR AA 57.0L ML/MIN 02/19/2015 Unknow n GFR CALC 1404747 GFR NON-AA 47.0L ML/MIN 02/19/2015 Unkno wn THYROID STIMULATING HORMONE 10929 TSH 2.378 uIU/ML 11/14/2014 Unknown COMPLETE BLOOD COUNT 2219817 WBC 6.4 10e9/L 11/15/19 15 Unknown COMPLETE BLOOD COUNT 6812844 RBC 3.99 10e12/L 2014 Unknown COMPLETE BLOOD COUNT 8849323 HGB 11.9 g/dL 5 Unknown COMPLETE BLOOD COUNT 2122208 HCT DET 36.9 % 5 Unknown COMPLETE BLOOD COUNT 5966348 MCV 92.5 fL 5 Unknown COMPLETE BLOOD COUNT 2157021 MCH 29.8 pg 5 Unknown COMPLETE BLOOD COUNT 9678552 MCHC 32.2 g/dL 5 Unknown COMPLETE BLOOD COUNT 1141345 PLT 172 10e9/L 11/15/19 15 Unknown COMPLETE BLOOD COUNT 3291984 MPV 11.7 fL 5 Unknown COMPLETE BLOOD COUNT 0115109 CINTHYA % 40.4 % 5 Unknown COMPLETE BLOOD COUNT 5720277 LY % 48.0 % 5 Unknown COMPLETE BLOOD COUNT 9517834 MON % 8.3 % 5 Unknown COMPLETE BLOOD COUNT 5571737 EOS % 2.8 % 5 Unknown COMPLETE BLOOD COUNT 3625218 BASO % 0.5 % 5 Unknown COMPLETE BLOOD COUNT 3400906 RDW 13.6 % 5 Unknown COMPLETE BLOOD COUNT 7836364 ABS CINTHYA 2.59 10e9/L 015 Unknown COMPLETE BLOOD COUNT 4136646 ABS LYMPH 3.07 10e9/L 015 Unknown COMPLETE BLOOD COUNT 4875392 ABS MONO 0.53 10e9/L 015 Unknown COMPLETE BLOOD COUNT 2236636 ABS EOS 0.18 10e9/L 015 Unknown COMPLETE BLOOD COUNT 6363968 ABS BASO 0.03 10e9/L 015 Unknown COMPLETE BLOOD COUNT 5656850 RDW-SD 44.9 fL 09/10/201 5 Unknown LIPID GROUP 49883 HDL TEST 42 MG/DL 11/14/2014 Unknown LIPID GROUP 78800 TRIG 177 MG/DL 11/14/2014 Unknown LIPID GROUP 72234 TEST LDL 72 MG/DL 11/14/2014 Unknown LIPID GROUP 91808 CHOL 149 MG/DL 11/14/2014 Unknown LIPID GROUP 25393 RCHOL/HDL 3.55 RATIO 11/14/2014 Unknow n LIPID GROUP 16483 NON-HDL CH 107 MG/DL 11/14/2014 Unknow n GLYCOSYLATED HEMOGLOBIN TEST 45367 A1C HPLC 33145-9 5.5 % 0 11/14/2014 Unknown FREE T4 46500 FREE T4 1.39 NG/DL 11/14/2014 Unknown GFR CALC 9143283 GFR AA 55.0L ML/MIN 11/14/2014 Unknow n GFR CALC 4487877 GFR NON-AA 46.0L ML/MIN 11/14/2014 Unkno wn COMPREHENSIVE METABOLIC 63695 AST 17 U/L 2014 Unknown COMPREHENSIVE METABOLIC 98781 ALT 10 IU/L 2014 Unknown COMPREHENSIVE METABOLIC 87476 BUN 20 MG/DL 2014 Unknown COMPREHENSIVE METABOLIC 97390 ALBUMIN 3.9 GM/DL 2014 Unknown COMPREHENSIVE METABOLIC 76764 CHLORIDE 111 MMOL/L 11/14 Unknown COMPREHENSIVE METABOLIC 43427 BILI TOT 0.4 MG/DL 2014 Unknown COMPREHENSIVE METABOLIC 04006 ALK PHOS 70 U/L 2014 Unknown COMPREHENSIVE METABOLIC 86028 SODIUM 142 MMOL/L 11/14 Unknown COMPREHENSIVE METABOLIC 75145 CREATININE 1.16 MG/DL 11/05 Unknown COMPREHENSIVE METABOLIC 04353 CALCIUM 9.4 MG/DL 2014 Unknown COMPREHENSIVE METABOLIC 08757 POTASSIUM 4.6 MMOL/L 11/14 Unknown COMPREHENSIVE METABOLIC 82394 PROT TOT 6.2 GM/DL 2014 Unknown COMPREHENSIVE METABOLIC 75900 Glucose 90 MG/DL 2014 Unknown COMPREHENSIVE METABOLIC 31594 BICARB 24 MMOL/L 2014 Unknown COMPREHENSIVE METABOLIC 38349 ANION GAP 7 MEQ/L 2014 Unknown THYROID STIMULATING HORMONE 15081 TSH 2.427 uIU/ML 05/10/2014 Unknown LIPID GROUP 76721 HDL TEST 47 MG/DL 05/10/2014 Unknown LIPID GROUP 58684 TRIG 145 MG/DL 05/10/2014 Unknown LIPID GROUP 28368 TEST LDL 73 MG/DL 05/10/2014 Unknown LIPID GROUP 56382 CHOL 149 MG/DL 05/10/2014 Unknown LIPID GROUP 60074 RCHOL/HDL 3.17 RATIO 05/10/2014 Unknow n LIPID GROUP 02943 NON-HDL CH 102 MG/DL 05/10/2014 Unknow n COMPREHENSIVE METABOLIC 40154 AST 17 U/L 2014 Unknown COMPREHENSIVE METABOLIC 76354 ALT 9 IU/L 2014 Unknown COMPREHENSIVE METABOLIC 11333 BUN 19 MG/DL 2014 Unknown COMPREHENSIVE METABOLIC 71823 ALBUMIN 4.3 GM/DL 2014 Unknown COMPREHENSIVE METABOLIC 15321 CHLORIDE 108 MMOL/L 05/10 Unknown COMPREHENSIVE METABOLIC 96540 BILI TOT 0.5 MG/DL 2014 Unknown COMPREHENSIVE METABOLIC 31905 ALK PHOS 68 U/L 2014 Unknown COMPREHENSIVE METABOLIC 45199 SODIUM 140 MMOL/L 05/10 Unknown COMPREHENSIVE METABOLIC 31501 CREATININE 1.08 MG/DL 08/2014 Unknown COMPREHENSIVE METABOLIC 61106 CALCIUM 9.9 MG/DL 2014 Unknown COMPREHENSIVE METABOLIC 38317 POTASSIUM 4.3 MMOL/L 05/10 Unknown COMPREHENSIVE METABOLIC 57732 PROT TOT 7.2 GM/DL 2014 Unknown COMPREHENSIVE METABOLIC 10512 Glucose 94 MG/DL 2014 Unknown COMPREHENSIVE METABOLIC 81389 BICARB 26 MMOL/L 2014 Unknown COMPREHENSIVE METABOLIC 33804 ANION GAP 6 MEQ/L 2014 Unknown GFR CALC 1088821 GFR AA 60.0L ML/MIN 05/10/2014 Unknow n GFR CALC 4233788 GFR NON-AA 49.0L ML/MIN 05/10/2014 Unkno wn GLYCOSYLATED HEMOGLOBIN TEST 61594 A1C HPLC 36844-5 5.6 % 0 05/10/2014 Unknown COMPLETE BLOOD COUNT 6971437 WBC 7.2 10e9/L 05/11/19 15 Unknown COMPLETE BLOOD COUNT 1620351 RBC 4.28 10e12/L 2014 Unknown COMPLETE BLOOD COUNT 6197036 HGB 12.8 g/dL 5 Unknown COMPLETE BLOOD COUNT 8118255 HCT DET 39.3 % 5 Unknown COMPLETE BLOOD COUNT 8581663 MCV 91.8 fL 5 Unknown COMPLETE BLOOD COUNT 0389588 MCH 29.9 pg 5 Unknown COMPLETE BLOOD COUNT 8188631 MCHC 32.6 g/dL 5 Unknown COMPLETE BLOOD COUNT 9694636 PLT 189 10e9/L 05/11/19 15 Unknown COMPLETE BLOOD COUNT 5445594 MPV 11.2 fL 5 Unknown COMPLETE BLOOD COUNT 9652289 CINTHYA % 38.0 % 5 Unknown COMPLETE BLOOD COUNT 3922195 LY % 51.0 % 5 Unknown COMPLETE BLOOD COUNT 8371676 MON % 7.7 % 5 Unknown COMPLETE BLOOD COUNT 3818038 EOS % 2.9 % 5 Unknown COMPLETE BLOOD COUNT 4164934 BASO % 0.4 % 5 Unknown COMPLETE BLOOD COUNT 5873211 RDW 14.0 % 5 Unknown COMPLETE BLOOD COUNT 9615525 ABS CINTHYA 2.74 10e9/L 015 Unknown COMPLETE BLOOD COUNT 5406513 ABS LYMPH 3.67 10e9/L 015 Unknown COMPLETE BLOOD COUNT 1151829 ABS MONO 0.55 10e9/L 015 Unknown COMPLETE BLOOD COUNT 1711719 ABS EOS 0.21 10e9/L 015 Unknown COMPLETE BLOOD COUNT 3006360 ABS BASO 0.03 10e9/L 015 Unknown COMPLETE BLOOD COUNT 5123077 RDW-SD 46.1 fL 5 Unknown FREE T4 67571 FREE T4 1.14 NG/DL 05/10/2014 Unknown GLYCOSYLATED HEMOGLOBIN TEST 94171 A1C HPLC 25118-2 5.2 % 0 03/29/2013 Unknown FREE T4 44217 FREE T4 1.40 NG/DL 03/28/2013 Unknown GFR CALC 4474557 GFR AA >60 ML/MIN 03/28/2013 Unknown GFR CALC 5594561 GFR NON-AA 52.0L ML/MIN 03/28/2013 Unkno wn COMPREHENSIVE METABOLIC 28095 AST 15 U/L 2013 Unknown COMPREHENSIVE METABOLIC 61929 ALT 9 IU/L 2013 Unknown COMPREHENSIVE METABOLIC 93857 BUN 17 MG/DL 2013 Unknown COMPREHENSIVE METABOLIC 59367 ALBUMIN 4.0 GM/DL 2013 Unknown COMPREHENSIVE METABOLIC 99491 CHLORIDE 112 MMOL/L 03/28 Unknown COMPREHENSIVE METABOLIC 52942 BILI TOT 0.5 MG/DL 2013 Unknown COMPREHENSIVE METABOLIC 27668 ALK PHOS 66 U/L 2013 Unknown COMPREHENSIVE METABOLIC 02445 SODIUM 140 MMOL/L 03/28 Unknown COMPREHENSIVE METABOLIC 28467 CREATININE 1.03 MG/DL 03/08 Unknown COMPREHENSIVE METABOLIC 67593 CALCIUM 9.5 MG/DL 2013 Unknown COMPREHENSIVE METABOLIC 75864 POTASSIUM 4.1 MMOL/L 03/28 Unknown COMPREHENSIVE METABOLIC 07546 PROT TOT 6.2 GM/DL 2013 Unknown COMPREHENSIVE METABOLIC 79463 Glucose 102 MG/DL 2013 Unknown COMPREHENSIVE METABOLIC 39749 BICARB 23 MMOL/L 2013 Unknown COMPREHENSIVE METABOLIC 89673 ANION GAP 5 MEQ/L 2013 Unknown THYROID STIMULATING HORMONE 11345 TSH 2.074 uIU/ML 03/28/2013 Unknown VITAMIN B 12 FOLIC ACID 49425|77150 VIT B 12 423 PG/ML 03/08 Unknown VITAMIN B 12 FOLIC ACID 39245|39267 FOLIC ACID 19.7 NG/ML Unknown LIPID GROUP 69077 HDL TEST 40 MG/DL 03/28/2013 Unknown LIPID GROUP 95529 TRIG 145 MG/DL 03/28/2013 Unknown LIPID GROUP 57549 TEST LDL 81 MG/DL 03/28/2013 Unknown LIPID GROUP 32779 CHOL 150 MG/DL 03/28/2013 Unknown LIPID GROUP 29535 RCHOL/HDL 3.75 RATIO 03/28/2013 Unknow n COMPLETE BLOOD COUNT 6029587 WBC 6.0 10e9/L 03/28/19 14 Unknown COMPLETE BLOOD COUNT 9573482 RBC 4.26 10e12/L 2013 Unknown COMPLETE BLOOD COUNT 0188406 HGB 12.7 g/dL 4 Unknown COMPLETE BLOOD COUNT 5568028 HCT DET 38.7 % 4 Unknown COMPLETE BLOOD COUNT 0729413 MCV 90.8 fL 4 Unknown COMPLETE BLOOD COUNT 3695554 MCH 29.8 pg 4 Unknown COMPLETE BLOOD COUNT 0034217 MCHC 32.8 g/dL 4 Unknown COMPLETE BLOOD COUNT 3699975 PLT 178 10e9/L 03/28/19 14 Unknown COMPLETE BLOOD COUNT 2081114 MPV 11.7 fL 4 Unknown COMPLETE BLOOD COUNT 6589767 CINTHYA % 30.5 % 4 Unknown COMPLETE BLOOD COUNT 7469698 LY % 55.4 % 4 Unknown COMPLETE BLOOD COUNT 1824771 MON % 9.0 % 4 Unknown COMPLETE BLOOD COUNT 1415898 EOS % 4.4 % 4 Unknown COMPLETE BLOOD COUNT 9686082 BASO % 0.7 % 4 Unknown COMPLETE BLOOD COUNT 7937507 RDW 13.3 % 4 Unknown COMPLETE BLOOD COUNT 1719475 ABS CINTHYA 1.83 10e9/L 014 Unknown COMPLETE BLOOD COUNT 3364799 ABS LYMPH 3.32 10e9/L 014 Unknown COMPLETE BLOOD COUNT 8869497 ABS MONO 0.54 10e9/L 014 Unknown COMPLETE BLOOD COUNT 0433318 ABS EOS 0.26 10e9/L 014 Unknown COMPLETE BLOOD COUNT 2355013 ABS BASO 0.04 10e9/L 014 Unknown COMPLETE BLOOD COUNT 8414128 RDW-SD 43.2 fL 4 Unknown HEMOGLOBIN A1C (GLYCOSYLATED) 6892055 A1C HPLC 96386-1 5.5 % 02/24/2012 Unknown COMPLETE BLOOD COUNT 2000047 WBC 6.0 10e9/L 02/23/20 12 Unknown COMPLETE BLOOD COUNT 9811992 RBC 4.22 10e12/L 2011 Unknown COMPLETE BLOOD COUNT 9473458 HGB 12.4 g/dL 2 Unknown COMPLETE BLOOD COUNT 2018517 HCT DET 38.2 % 2 Unknown COMPLETE BLOOD COUNT 2181821 MCV 90.5 fL 2 Unknown COMPLETE BLOOD COUNT 5414617 MCH 29.4 pg 2 Unknown COMPLETE BLOOD COUNT 7217445 MCHC 32.5 g/dL 2 Unknown COMPLETE BLOOD COUNT 7559074 PLT 187 10e9/L 02/23/20 12 Unknown COMPLETE BLOOD COUNT 6486622 MPV 11.5 fL 2 Unknown COMPLETE BLOOD COUNT 4186897 CINTHYA % 36.4 % 2 Unknown COMPLETE BLOOD COUNT 8736214 LY % 51.0 % 2 Unknown COMPLETE BLOOD COUNT 0394836 MON % 8.7 % 2 Unknown COMPLETE BLOOD COUNT 4108593 EOS % 3.2 % 2 Unknown COMPLETE BLOOD COUNT 9880773 BASO % 0.7 % 2 Unknown COMPLETE BLOOD COUNT 7766936 RDW 13.7 % 2 Unknown COMPLETE BLOOD COUNT 3187395 ABS CINTHYA 2.18 10e9/L 012 Unknown COMPLETE BLOOD COUNT 3802911 ABS LYMPH 3.06 10e9/L 012 Unknown COMPLETE BLOOD COUNT 6019309 ABS MONO 0.52 10e9/L 012 Unknown COMPLETE BLOOD COUNT 3034265 ABS EOS 0.19 10e9/L 012 Unknown COMPLETE BLOOD COUNT 2055208 ABS BASO 0.04 10e9/L 012 Unknown COMPLETE BLOOD COUNT 2292453 RDW-SD 44.3 fL 2 Unknown LIPID GROUP 74867 HDL TEST 42 MG/DL 02/23/2012 Unknown LIPID GROUP 68015 TRIG 156 MG/DL 02/23/2012 Unknown LIPID GROUP 70192 TEST LDL 80 MG/DL 02/23/2012 Unknown LIPID GROUP 99859 CHOL 153 MG/DL 02/23/2012 Unknown LIPID GROUP 11747 RCHOL/HDL 3.64 RATIO 02/23/2012 Unknow n FREE T4 91211 FREE T4 1.22 NG/DL 02/23/2012 Unknown COMPREHENSIVE METABOLIC 75251 AST 20 U/L 2011 Unknown COMPREHENSIVE METABOLIC 07953 ALT 11 IU/L 2011 Unknown COMPREHENSIVE METABOLIC 14456 BUN 19 MG/DL 2011 Unknown COMPREHENSIVE METABOLIC 98796 ALBUMIN 4.3 GM/DL 2011 Unknown COMPREHENSIVE METABOLIC 43651 CHLORIDE 109 MMOL/L 02/22 Unknown COMPREHENSIVE METABOLIC 94500 BILI TOT 0.6 MG/DL 2011 Unknown COMPREHENSIVE METABOLIC 33657 ALK PHOS 84 U/L 2011 Unknown COMPREHENSIVE METABOLIC 60926 SODIUM 142 MMOL/L 02/22 Unknown COMPREHENSIVE METABOLIC 52310 CREATININE 1.09 MG/DL 02/04 Unknown COMPREHENSIVE METABOLIC 11106 CALCIUM 9.8 MG/DL 2011 Unknown COMPREHENSIVE METABOLIC 12974 POTASSIUM 4.2 MMOL/L 02/22 Unknown COMPREHENSIVE METABOLIC 55743 PROT TOT 6.4 GM/DL 2011 Unknown COMPREHENSIVE METABOLIC 60740 Glucose 89 MG/DL 2011 Unknown COMPREHENSIVE METABOLIC 91548 BICARB 25 MMOL/L 2011 Unknown COMPREHENSIVE METABOLIC 15829 ANION GAP 8 MEQ/L 2011 Unknown GFR CALC [id number] GFR AA 60.0L ML/MIN 02/23/2012 Unknow n GFR CALC [id number] GFR NON-AA 49.0L ML/MIN 02/23/2012 Unkno wn THYROID STIMULATING HORMONE 55178 TSH 2.450 uIU/ML 02/23/2012 Unknown COMPREHENSIVE METABOLIC 66011 AST 22 U/L 2011 Unknown COMPREHENSIVE METABOLIC 61794 ALT 14 IU/L 2011 Unknown COMPREHENSIVE METABOLIC 51019 BUN 21 MG/DL 2011 Unknown COMPREHENSIVE METABOLIC 78247 ALBUMIN 4.3 GM/DL 2011 Unknown COMPREHENSIVE METABOLIC 48762 CHLORIDE 106 MMOL/L 04/01 Unknown COMPREHENSIVE METABOLIC 42594 BILI TOT 0.4 MG/DL 2011 Unknown COMPREHENSIVE METABOLIC 48659 ALK PHOS 80 U/L 2011 Unknown COMPREHENSIVE METABOLIC 11936 SODIUM 141 MMOL/L 04/01 Unknown COMPREHENSIVE METABOLIC 00121 CREATININE 1.13 MG/DL 03/08 Unknown COMPREHENSIVE METABOLIC 15607 CALCIUM 9.4 MG/DL 2011 Unknown COMPREHENSIVE METABOLIC 76730 POTASSIUM 4.3 MMOL/L 04/01 Unknown COMPREHENSIVE METABOLIC 10648 PROT TOT 6.7 GM/DL 2011 Unknown COMPREHENSIVE METABOLIC 16642 Glucose 98 MG/DL 2011 Unknown COMPREHENSIVE METABOLIC 51344 BICARB 25 MMOL/L 2011 Unknown COMPREHENSIVE METABOLIC 55746 ANION GAP 10 MEQ/L 2011 Unknown LIP[facility] GROUP 69811 HDL TEST 44 MG/DL 04/01/2011 Unknown LIP[facility] GROUP 61181 TRIG 164 MG/DL 04/01/2011 Unknown LIP[facility] GROUP 59850 TEST LDL 98 MG/DL 04/01/2011 Unknown LIPID GROUP 21049 CHOL 175 MG/DL 04/01/2011 Unknown LIPID GROUP 81957 RCHOL/HDL 3.98 RATIO 04/01/2011 Unknow n COMPLETE BLOOD COUNT 12445 WBC 6.7 10e9/L 04/01/19 12 Unknown COMPLETE BLOOD COUNT 54191 RBC 4.36 10e12/L 2011 Unknown COMPLETE BLOOD COUNT 16184 HGB 12.9 g/dL 2 Unknown COMPLETE BLOOD COUNT 18265 HCT DET 39.4 % 2 Unknown COMPLETE BLOOD COUNT 33039 MCV 90.4 fL 2 Unknown COMPLETE BLOOD COUNT 87319 MCH 29.6 pg 2 Unknown COMPLETE BLOOD COUNT 89069 MCHC 32.7 g/dL 2 Unknown COMPLETE BLOOD COUNT 75264 PLT 184 10e9/L 04/01/19 12 Unknown COMPLETE BLOOD COUNT 25871 MPV 10.9 fL 2 Unknown COMPLETE BLOOD COUNT 22310 CINTHYA % 41.5 % 2 Unknown COMPLETE BLOOD COUNT 80879 LY % 45.7 % 2 Unknown COMPLETE BLOOD COUNT 00893 MON % 9.4 % 2 Unknown COMPLETE BLOOD COUNT 84100 EOS % 3.0 % 2 Unknown COMPLETE BLOOD COUNT 93085 BASO % 0.4 % 2 Unknown COMPLETE BLOOD COUNT 11574 RDW 13.2 % 2 Unknown COMPLETE BLOOD COUNT 69256 ABS CINTHYA 2.78 10e9/L 012 Unknown COMPLETE BLOOD COUNT 50450 ABS LYMPH 3.06 10e9/L 012 Unknown COMPLETE BLOOD COUNT 52270 ABS MONO 0.63 10e9/L 012 Unknown COMPLETE BLOOD COUNT 79202 ABS EOS 0.20 10e9/L 012 Unknown COMPLETE BLOOD COUNT 73338 ABS BASO 0.03 10e9/L 012 Unknown COMPLETE BLOOD COUNT 99545 RDW-SD 42.3 fL 2 Unknown GFR CALC 2473190 GFR AA 57.0L ML/MIN 04/01/2011 Unknow n GFR CALC 1895130 GFR NON-AA 47.0L ML/MIN 04/01/2011 Unkno wn THYROID STIMULATING HORMONE 88888 TSH 2.663 uIU/ML 04/01/2011 Unknown FREE T4 63464 FREE T4 1.15 NG/DL 04/01/2011 Unknown THYROID STIMULATING HORMONE 18993 TSH 1.908 uIU/ML 07/06/2010 Unknown COMPLETE BLOOD COUNT 69588 WBC 6.4 10e9/L 07/07/19 11 Unknown COMPLETE BLOOD COUNT 14506 RBC 3.92 10e12/L 2010 Unknown COMPLETE BLOOD COUNT 22993 HGB 11.8 g/dL 1 Unknown COMPLETE BLOOD COUNT 49477 HCT DET 36.0 % 1 Unknown COMPLETE BLOOD COUNT 21141 MCV 91.8 fL 1 Unknown COMPLETE BLOOD COUNT 46098 MCH 30.1 pg 1 Unknown COMPLETE BLOOD COUNT 54513 MCHC 32.8 g/dL 1 Unknown COMPLETE BLOOD COUNT 55127 PLT 176 10e9/L 07/07/19 11 Unknown COMPLETE BLOOD COUNT 12797 MPV 11.4 fL 1 Unknown COMPLETE BLOOD COUNT 81508 CINTHYA % 50.4 % 1 Unknown COMPLETE BLOOD COUNT 90681 LY % 35.5 % 1 Unknown COMPLETE BLOOD COUNT 31595 MON % 10.2 % 1 Unknown COMPLETE BLOOD COUNT 83954 EOS % 3.3 % 1 Unknown COMPLETE BLOOD COUNT 81592 BASO % 0.6 % 1 Unknown COMPLETE BLOOD COUNT 29181 RDW 13.7 % 1 Unknown COMPLETE BLOOD COUNT 23746 ABS CINTHYA 3.23 10e9/L 011 Unknown COMPLETE BLOOD COUNT 12341 ABS LYMPH 2.27 10e9/L 011 Unknown COMPLETE BLOOD COUNT 25578 ABS MONO 0.65 10e9/L 011 Unknown COMPLETE BLOOD COUNT 22123 ABS EOS 0.21 10e9/L 011 Unknown COMPLETE BLOOD COUNT 82650 ABS BASO 0.04 10e9/L 011 Unknown COMPLETE BLOOD COUNT 69870 RDW-SD 45.3 fL 1 Unknown GFR CALC 6395031 GFR AA >60 ML/MIN 07/06/2010 Unknown GFR CALC 7778594 GFR NON-AA 53.0L ML/MIN 07/06/2010 Unkno wn FREE T4 48979 FREE T4 1.20 NG/DL 07/06/2010 Unknown COMPREHENSIVE METABOLIC 11295 AST 17 U/L 2010 Unknown COMPREHENSIVE METABOLIC 95934 ALT 9 IU/L 2010 Unknown COMPREHENSIVE METABOLIC 88318 BUN 16 MG/DL 2010 Unknown COMPREHENSIVE METABOLIC 66780 ALBUMIN 4.0 GM/DL 2010 Unknown COMPREHENSIVE METABOLIC 79535 CHLORIDE 108 MMOL/L 07/06 Unknown COMPREHENSIVE METABOLIC 91285 BILI TOT 0.5 MG/DL 2010 Unknown COMPREHENSIVE METABOLIC 34400 ALK PHOS 76 U/L 2010 Unknown COMPREHENSIVE METABOLIC 87480 SODIUM 139 MMOL/L 07/06 Unknown COMPREHENSIVE METABOLIC 63557 CREATININE 1.02 MG/DL 04/2010 Unknown COMPREHENSIVE METABOLIC 64914 CALCIUM 9.2 MG/DL 2010 Unknown COMPREHENSIVE METABOLIC 02463 POTASSIUM 4.5 MMOL/L 07/06 Unknown COMPREHENSIVE METABOLIC 65123 PROT TOT 6.1 GM/DL 2010 Unknown COMPREHENSIVE METABOLIC 32817 Glucose 93 MG/DL 2010 Unknown COMPREHENSIVE METABOLIC 50249 BICARB 26 MMOL/L 2010 Unknown COMPREHENSIVE METABOLIC 94718 ANION GAP 5 MEQ/L 2010 Unknown LIPID GROUP 58503 HDL TEST 46 MG/DL 07/06/2010 Unknown LIPID GROUP 58328 TRIG 102 MG/DL 07/06/2010 Unknown LIPID GROUP 34543 TEST LDL 88 MG/DL 07/06/2010 Unknown LIPID GROUP 93745 CHOL 154 MG/DL 07/06/2010 Unknown LIPID GROUP 79320 RCHOL/HDL 3.35 RATIO 07/06/2010 Unknow n Procedures Procedure Codes Date ROUTINE VENIPUNCTURE CPT-4: 87451 03/13/2019 ASSAY THYROID STIM HORMONE CPT-4: 87979 03/13/2019 COMPLETE CBC W/AUTO DIFF WBC CPT-4: 34650 03/13/2019 COMPREHEN METABOLIC PANEL CPT-4: 67638 03/13/2019 ROUTINE VENIPUNCTURE CPT-4: 75033 01/23/2019 LIPID PANEL CPT-4: 89039 01/23/2019 FLU VACC PRSV FREE INC ANTIG 65 AND OLDER CPT-4: 41710 12/26/2018 FLU VACC PRSV FREE INC ANTIG 65 AND OLDER CPT-4: 21452 12/26/2018 ADMIN INFLUENZA VIRUS VAC CPT-4: G0008 12/26/2018 COMPREHEN METABOLIC PANEL CPT-4: 81379 12/15/2018 ROUTINE VENIPUNCTURE CPT-4: 34600 12/15/2018 ROUTINE VENIPUNCTURE CPT-4: 94794 08/14/2018 ASSAY THYROID STIM HORMONE CPT-4: 15567 08/14/2018 COMPREHEN METABOLIC PANEL CPT-4: 72631 08/14/2018 COMPLETE CBC W/AUTO DIFF WBC CPT-4: 94874 08/14/2018 URINALYSIS NONAUTO W/O SCOPE CPT-4: 73409 05/10/2018 URINE CULTURE/ COLONY COUNT CPT-4: 11919 05/10/2018 URINE CULTURE/ COLONY COUNT CPT-4: 29601 12/06/2017 ROUTINE VENIPUNCTURE CPT-4: 21668 11/30/2017 ASSAY OF FREE THYROXINE CPT-4: 69911 11/30/2017 ASSAY THYROID STIM HORMONE CPT-4: 99024 11/30/2017 COMPLETE CBC W/AUTO DIFF WBC CPT-4: 95170 11/30/2017 METABOLIC PANEL TOTAL CA CPT-4: 94551 11/30/2017 FLU VACC PRSV FREE INC ANTIG 65 AND OLDER CPT-4: 56210 11/22/2017 ASSAY, GLUCOSE, BLOOD QUANT CPT-4: 03215 11/22/2017 ADMIN INFLUENZA VIRUS VAC CPT-4: G0008 11/22/2017 ROUTINE VENIPUNCTURE CPT-4: 58247 09/27/2017 COMPREHEN METABOLIC PANEL CPT-4: 98642 09/27/2017 COMPLETE CBC W/AUTO DIFF WBC CPT-4: 57862 09/27/2017 A1C HPLC CPT-4: 82902 09/27/2017 ASSAY OF TROPONIN QUANT CPT-4: 81317 09/27/2017 LIPID PANEL CPT-4: 33063 09/27/2017 THER/PROPH/DIAG INJ SC/IM CPT-4: 62326 05/30/2017 TRIAMCINOLONE ACET INJ NOS CPT-4: J3301 05/30/2017 URINALYSIS NONAUTO W/O SCOPE CPT-4: 84088 04/18/2017 URINE CULTURE/ COLONY COUNT CPT-4: 27881 04/18/2017 FLU VACC PRSV FREE INC ANTIG 65 AND OLDER CPT-4: 74059 12/10/2016 ADMIN INFLUENZA VIRUS VAC CPT-4: G0008 12/10/2016 ROUTINE VENIPUNCTURE CPT-4: 59480 11/01/2016 COMPREHEN METABOLIC PANEL CPT-4: 51519 11/01/2016 COMPLETE CBC W/AUTO DIFF WBC CPT-4: 56437 11/01/2016 LIPID PANEL CPT-4: 41986 11/01/2016 A1C HPLC CPT-4: 06076 11/01/2016 ASSAY THYROID STIM HORMONE CPT-4: 28510 11/01/2016 ROUTINE VENIPUNCTURE CPT-4: 81064 05/13/2016 ASSAY THYROID STIM HORMONE CPT-4: 62808 05/13/2016 COMPREHEN METABOLIC PANEL CPT-4: 53645 05/13/2016 COMPLETE CBC W/AUTO DIFF WBC CPT-4: 13509 05/13/2016 A1C HPLC CPT-4: 34716 05/13/2016 FLU VACC PRSV FREE INC ANTIG 65 AND OLDER CPT-4: 59317 12/12/2015 ADMIN INFLUENZA VIRUS VAC CPT-4: G0008 12/12/2015 ROUTINE VENIPUNCTURE CPT-4: 20742 11/25/2015 ASSAY OF FREE THYROXINE CPT-4: 07293 11/25/2015 ASSAY THYROID STIM HORMONE CPT-4: 33019 11/25/2015 COMPREHEN METABOLIC PANEL CPT-4: 72294 11/25/2015 COMPLETE CBC W/AUTO DIFF WBC CPT-4: 17976 11/25/2015 LIPID PANEL CPT-4: 15393 11/25/2015 A1C HPLC CPT-4: 98725 11/25/2015 URINALYSIS NONAUTO W/O SCOPE CPT-4: 73476 05/21/2015 ROUTINE VENIPUNCTURE CPT-4: 92070 02/19/2015 METABOLIC PANEL TOTAL CA CPT-4: 39031 02/19/2015 PRESCRIP TRANSMIT VIA ERX SY CPT-4: G8553 02/19/2015 FLU VACC PRSV FREE INC ANTIG 65 AND OLDER CPT-4: 74387 12/20/2014 ADMIN INFLUENZA VIRUS VAC CPT-4: G0008 12/20/2014 URINALYSIS NONAUTO W/O SCOPE CPT-4: 17548 11/19/2014 URINE CULTURE/ COLONY COUNT CPT-4: 29117 11/19/2014 ROUTINE VENIPUNCTURE CPT-4: 12192 11/14/2014 ASSAY OF FREE THYROXINE CPT-4: 18639 11/14/2014 ASSAY THYROID STIM HORMONE CPT-4: 83434 11/14/2014 COMPREHEN METABOLIC PANEL CPT-4: 05742 11/14/2014 COMPLETE CBC W/AUTO DIFF WBC CPT-4: 21809 11/14/2014 LIPID PANEL CPT-4: 02860 11/14/2014 A1C HPLC CPT-4: 03268 11/14/2014 CERUM REMOVAL CPT-4: 28211 09/27/2014 PRESCRIP TRANSMIT VIA ERX SY CPT-4: G8553 07/11/2014 FLUZONE, 5ML (Medicare) CPT-4: Q2038 12/21/2013 ADMIN INFLUENZA VIRUS VAC CPT-4: G0008 12/21/2013 PRESCRIP TRANSMIT VIA ERX SY CPT-4: G8553 10/17/2013 PRESCRIP TRANSMIT VIA ERX SY CPT-4: G8553 09/24/2013 PRESCRIP TRANSMIT VIA ERX SY CPT-4: G8553 05/31/2013 ROUTINE VENIPUNCTURE CPT-4: 97813 03/28/2013 ASSAY OF FREE THYROXINE CPT-4: 02931 03/28/2013 ASSAY THYROID STIM HORMONE CPT-4: 82372 03/28/2013 COMPREHEN METABOLIC PANEL CPT-4: 96230 03/28/2013 COMPLETE CBC W/AUTO DIFF WBC CPT-4: 13956 03/28/2013 LIPID PANEL CPT-4: 41586 03/28/2013 A1C HPLC CPT-4: 94228 03/28/2013 VITAMIN B 12 FOLIC ACID CPT-4: 53622|73402 03/28/2013 PRESCRIP TRANSMIT VIA ERX SY CPT-4: G8553 03/26/2013 PRESCRIP TRANSMIT VIA ERX SY CPT-4: G8553 12/19/2012 FLUZONE, 5ML (Medicare) CPT-4: Q2038 11/27/2012 ADMIN INFLUENZA VIRUS VAC CPT-4: G0008 11/27/2012 PRESCRIP TRANSMIT VIA ERX SY CPT-4: G8553 10/04/2012 PRESCRIP TRANSMIT VIA ERX SY CPT-4: G8553 07/14/2012 ROUTINE VENIPUNCTURE CPT-4: 27266 02/23/2012 ASSAY OF FREE THYROXINE CPT-4: 00166 02/23/2012 ASSAY THYROID STIM HORMONE CPT-4: 45157 02/23/2012 COMPREHEN METABOLIC PANEL CPT-4: 71800 02/23/2012 COMPLETE CBC W/AUTO DIFF WBC CPT-4: 56844 02/23/2012 LIPID PANEL CPT-4: 92294 02/23/2012 A1C GLYCOSYLATED HEMOGLOBIN TEST CPT-4: 82759 012 CERUM REMOVAL CPT-4: 55775 02/22/2012 PRESCRIP TRANSMIT VIA ERX SY CPT-4: G8553 02/22/2012 PRESCRIP TRANSMIT VIA ERX SY CPT-4: G8553 12/15/2011 FLUZONE, 5ML (Medicare) CPT-4: Q2038 12/02/2011 ADMIN INFLUENZA VIRUS VAC CPT-4: G0008 12/02/2011 ASSAY, GLUCOSE, BLOOD QUANT CPT-4: 19715 09/21/2011 URINALYSIS NONAUTO W/O SCOPE CPT-4: 12509 09/16/2011 URINE CULTURE/ COLONY COUNT CPT-4: 17769 09/16/2011 ROUTINE VENIPUNCTURE CPT-4: 41782 09/15/2011 ASSAY OF FREE THYROXINE CPT-4: 18766 09/15/2011 ASSAY THYROID STIM HORMONE CPT-4: 92827 09/15/2011 COMPREHEN METABOLIC PANEL CPT-4: 36584 09/15/2011 COMPLETE CBC W/AUTO DIFF WBC CPT-4: 77893 09/15/2011 LIPID PANEL CPT-4: 64550 09/15/2011 ASSAY OF INSULIN CPT-4: 13922 09/15/2011 A1C GLYCOSYLATED HEMOGLOBIN TEST CPT-4: 68907 012 DRAIN/INJECT JOINT/BURSA CPT-4: 93263 08/16/2011 METHYLPREDNISOLONE 40 MG INJ CPT-4: J1030 08/16/2011 TRIAMCINOLONE ACET INJ NOS CPT-4: J3301 08/16/2011 PRESCRIP TRANSMIT VIA ERX SY CPT-4: G8553 08/03/2011 PRESCRIP TRANSMIT VIA ERX SY CPT-4: G8553 07/26/2011 METHYLPREDNISOLONE 40 MG INJ CPT-4: J1030 06/28/2011 DRAIN/INJECT JOINT/BURSA CPT-4: 72631 06/28/2011 TRIAMCINOLONE ACET INJ NOS CPT-4: J3301 06/28/2011 PRESCRIP TRANSMIT VIA ERX SY CPT-4: G8553 06/28/2011 ROUTINE VENIPUNCTURE CPT-4: 43320 04/01/2011 ASSAY OF FREE THYROXINE CPT-4: 10986 04/01/2011 ASSAY THYROID STIM HORMONE CPT-4: 53770 04/01/2011 COMPREHEN METABOLIC PANEL CPT-4: 77351 04/01/2011 COMPLETE CBC W/AUTO DIFF WBC CPT-4: 60189 04/01/2011 LIPID PANEL CPT-4: 98584 04/01/2011 PRESCRIP TRANSMIT VIA ERX SY CPT-4: G8553 03/31/2011 CERUM REMOVAL CPT-4: 51468 02/11/2011 PRESCRIP TRANSMIT VIA ERX SY CPT-4: G8553 02/11/2011 FLUZONE, 5ML (Medicare) CPT-4: Q2038 12/09/2010 ADMIN INFLUENZA VIRUS VAC CPT-4: G0008 12/09/2010 PRESCRIP TRANSMIT VIA ERX SY CPT-4: G8553 10/15/2010 URINALYSIS NONAUTO W/O SCOPE CPT-4: 18928 09/29/2010 URINE CULTURE/ COLONY COUNT CPT-4: 33570 09/29/2010 CUR TOBACCO NON-USER CPT-4: G8457 09/29/2010 ROUTINE VENIPUNCTURE CPT-4: 94618 07/06/2010 COMPLETE CBC W/AUTO DIFF WBC CPT-4: 62377 07/06/2010 COMPREHEN METABOLIC PANEL CPT-4: 42471 07/06/2010 LIPID PANEL CPT-4: 63995 07/06/2010 ASSAY THYROID STIM HORMONE CPT-4: 59098 07/06/2010 ASSAY OF FREE THYROXINE CPT-4: 26176 07/06/2010 PRESCRIP TRANSMIT VIA ERX SY CPT-4: G8553 07/02/2010 INJ TRIGGER POINT 1/2 MUSCL CPT-4: 59526 04/06/2010 TRIAMCINOLONE ACET INJ NOS CPT-4: J3301 04/06/2010 METHYLPREDNISOLONE 40 MG INJ CPT-4: J1030 04/06/2010 THER/PROPH/DIAG INJ SC/IM CPT-4: 58755 04/01/2010 KETOROLAC TROMETHAMINE INJ CPT-4: J1885 04/01/2010 PRESCRIP TRANSMIT VIA ERX SY CPT-4: G8553 01/22/2010 FLU VACCINE 3 YRS & > IM UP 64 CPT-4: 01459 0 ADMIN INFLUENZA VIRUS VAC CPT-4: G0008 12/10/2009 URINALYSIS NONAUTO W/O SCOPE CPT-4: 76348 12/02/2009 URINE CULTURE/ COLONY COUNT CPT-4: 69115 12/02/2009 PRESCRIP TRANSMIT VIA ERX SY CPT-4: G8553 12/02/2009 THER/PROPH/DIAG INJ SC/IM CPT-4: 96068 09/10/2009 VITAMIN B12 INJECTION CPT-4: J3420 09/10/2009 THER/PROPH/DIAG INJ SC/IM CPT-4: 07786 08/11/2009 VITAMIN B12 INJECTION CPT-4: J3420 08/11/2009 ROUTINE VENIPUNCTURE CPT-4: 96878 06/10/2009 Vital Signs Date Vital 03/20/2019 Blood Pressure 1: 138/64 Code: 8480-6 [...] 1: 142/60 Code: 8480-6 BMI: 38.2 Code: 05006-4 Heart Rate 1: 48 bpm Height: 5'2" Respiratory Rate: 20 bpm SpO2: 98% Tempera ture: 36.7 (C) / 98.1 (F) Weight: 212 lbs 01/10/2018 Blood Pressure 1: 142/64 Code: 8480-6 BMI: 38.5 Code: 90779-3 Heart Rate 1: 52 bpm Height: 5'2" Respiratory Rate: 22 bpm SpO2: 96% Tempera ture: 36.1 (C) / 96.9 (F) Weight: 214 lbs 12/06/2017 Blood Pressure 1: 124/80 Code: 8480-6 BMI: 38.3 Code: 95005-5 Heart Rate 1: 68 bpm Height: 5'2" Respiratory Rate: 20 bpm Temperature: 36 .3 (C) / 97.4 (F) Weight: 213 lbs 11/22/2017 Blood Pressure 1: 132/78 Code: 8480-6 BMI: 37.6 Code: 54933-2 Heart Rate 1: 68 bpm Height: 5'2" Respiratory Rate: 20 bpm SpO2: 97% Tempera ture: 36.8 (C) / 98.2 (F) Weight: 209 lbs 10/20/2017 Blood Pressure 1: 150/76 Code: 8480-6 BMI: 38.5 Code: 60200-7 Heart Rate 1: 64 bpm Height: 5'2" Respiratory Rate: 20 bpm SpO2: 97% Tempera ture: 36.2 (C) / 97.2 (F) Weight: 214 lbs 09/27/2017 Blood Pressure 1: 122/74 Code: 8480-6 BMI: 38.2 Code: 92802-8 Heart Rate 1: 64 bpm Height: 5'2" Respiratory Rate: 18 bpm SpO2: 96% Tempera ture: 35.8 (C) / 96.4 (F) Weight: 212 lbs 08/16/2017 Blood Pressure 1: 124/78 Code: 8480-6 BMI: 37.8 Code: 70105-7 Heart Rate 1: 76 bpm Height: 5'2" Respiratory Rate: 20 bpm Temperature: 36 .8 (C) / 98.3 (F) Weight: 210 lbs 07/07/2017 Blood Pressure 1: 136/70 Code: 8480-6 BMI: 38.0 Code: 63697-1 Heart Rate 1: 68 bpm Height: 5'2" Respiratory Rate: 20 bpm SpO2: 97% Tempera ture: 36.8 (C) / 98.2 (F) Weight: 211 lbs 05/30/2017 Blood Pressure 1: 140/65 Code: 8480-6 Heart Rate 1: 75 bpm Respiratory Rate: 24 bpm SpO2: 95% Temperature: 37.0 (C) / 98.6 (F) We ight: 211 lbs 04/18/2017 Blood Pressure 1: 154/70 Code: 8480-6 BMI: 37.6 Code: 32349-4 Heart Rate 1: 76 bpm Height: 5'2" Respiratory Rate: 20 bpm SpO2: 98% Tempera ture: 36.9 (C) / 98.5 (F) Weight: 209 lbs 10/25/2016 Blood Pressure 1: 156/70 Code: 8480-6 BMI: 37.1 Code: 04897-4 Heart Rate 1: 72 bpm Height: 5'2" Respiratory Rate: 20 bpm SpO2: 97% Tempera ture: 37.0 (C) / 98.6 (F) Weight: 206 lbs 09/20/2016 Blood Pressure 1: 152/78 Code: 8480-6 BMI: 36.8 Code: 37886-3 Heart Rate 1: 78 bpm Height: 5'2" Respiratory Rate: 20 bpm SpO2: 98% Tempera ture: 36.1 (C) / 97.0 (F) Weight: 204 lbs 05/12/2016 Blood Pressure 1: 142/70 Code: 8480-6 BMI: 36.9 Code: 36439-6 Heart Rate 1: 64 bpm Height: 5'2" [...] 1: 122/64 Code: 8480-6 BMI: 39.1 Code: 08098-6 Heart Rate 1: 76 bpm Height: 5'2" Respiratory Rate: 20 bpm Temperature: 36 .8 (C) / 98.2 (F) Weight: 217 lbs 05/21/2015 Blood Pressure 1: 144/70 Code: 8480-6 BMI: 39.4 Code: 07748-9 Heart Rate 1: 76 bpm Height: 5'2" Respiratory Rate: 20 bpm Temperature: 36 .6 (C) / 97.9 (F) Weight: 219 lbs 02/19/2015 Blood Pressure 1: 152/60 Code: 8480-6 BMI: 39.6 Code: 21737-7 Heart Rate 1: 84 bpm Height: 5'2" Respiratory Rate: 20 bpm Temperature: 37 .0 (C) / 98.6 (F) Weight: 220 lbs 11/13/2014 Blood Pressure 1: 146/76 Code: 8480-6 BMI: 39.8 Code: 50797-0 Heart Rate 1: 88 bpm Height: 5'2" Respiratory Rate: 20 bpm Temperature: 37 .0 (C) / 98.6 (F) Weight: 221 lbs 09/27/2014 Blood Pressure 1: 132/70 Code: 8480-6 BMI: 39.1 Code: 18881-2 Heart Rate 1: 88 bpm Height: 5'2" Respiratory Rate: 20 bpm Temperature: 36 .4 (C) / 97.6 (F) Weight: 217 lbs 07/11/2014 Blood Pressure 1: 132/66 Code: 8480-6 BMI: 39.9 Code: 23226-4 Heart Rate 1: 72 bpm Height: 5'2" Respiratory Rate: 20 bpm Temperature: 36 .9 (C) / 98.4 (F) Weight: 218 lbs 05/23/2014 Blood Pressure 1: 136/80 Code: 8480-6 Heart Rate 1: 76 bpm Respiratory Rate: 20 bpm Temperature: 36.7 (C) / 98.0 (F) Weight: 224 lbs 03/20/2014 Blood Pressure 1: 134/78 Code: 8480-6 BMI: 39.7 Code: 63804-9 Heart Rate 1: 84 bpm Height: 5'2" Respiratory Rate: 20 bpm Temperature: 36 .7 (C) / 98.0 (F) Weight: 217 lbs 10/17/2013 Blood Pressure 1: 146/78 Code: 8480-6 BMI: 39.5 Code: 45842-8 Heart Rate 1: 82 bpm Height: 5'2" Respiratory Rate: 18 bpm Temperature: 35 .6 (C) / 96.1 (F) Weight: 216 lbs 09/24/2013 Blood Pressure 1: 134/70 Code: 8480-6 BMI: 37.9 Code: 59903-2 Heart Rate 1: 80 bpm Height: 5'3" Respiratory Rate: 20 bpm Temperature: 36 .8 (C) / 98.2 (F) Weight: 214 lbs 05/31/2013 Blood Pressure 1: 132/70 Code: 8480-6 BMI: 37.6 Code: 61893-2 Heart Rate 1: 80 bpm Height: 5'3" Respiratory Rate: 20 bpm Temperature: 36 .8 (C) / 98.3 (F) Weight: 212 lbs 03/26/2013 Blood Pressure 1: 116/74 Code: 8480-6 Heart Rate 1: 68 bpm Respiratory Rate: 20 bpm Temperature: 36.2 (C) / 97.1 (F) Weight: 212 lbs 12/19/2012 Blood Pressure 1: 132/82 Code: 8480-6 BMI: 37.4 Code: 68406-2 Heart Rate 1: 76 bpm Height: 5'3" Respiratory Rate: 20 bpm Temperature: 36 .7 (C) / 98.0 (F) Weight: 211 lbs 12/04/2012 Blood Pressure 1: 130/76 Code: 8480-6 He art Rate 1: 78 bpm 11/27/2012 Blood Pressure 1: 140/82 Code: 8480-6 BMI: 36.8 Code: 98301-3 Heart Rate 1: 66 bpm Height: 5'3" Respiratory Rate: 20 bpm Temperature: 36 .1 (C) / 96.9 (F) Weight: 208 lbs 10/04/2012 Blood Pressure 1: 138/80 Code: 8480-6 BMI: 36.4 Code: 72950-2 Heart Rate 1: 72 bpm Height: 5'4" Respiratory Rate: 20 bpm Temperature: 36 .7 (C) / 98.0 (F) Weight: 212 lbs 07/27/2012 Blood Pressure 1: 124/70 Code: 8480-6 BMI: 36.9 Code: 70305-5 Heart Rate 1: 60 bpm Height: 5'4" Temperature: 36.1 (C) / 97.0 (F) Weight: 215 lbs 07/14/2012 Blood Pressure 1: 132/86 Code: 8480-6 BMI: 36.9 Code: 61417-9 Heart Rate 1: 76 bpm Height: 5'4" Respiratory Rate: 20 bpm Temperature: 36 .8 (C) / 98.2 (F) Weight: 215 lbs 06/08/2012 Blood Pressure 1: 134/82 Code: 8480-6 BMI: 36.6 Code: 58581-1 Heart Rate 1: 72 bpm Height: 5'4" Respiratory Rate: 20 bpm Temperature: 36 .3 (C) / 97.4 (F) Weight: 213 lbs 02/22/2012 Blood Pressure 1: 142/80 Code: 8480-6 BMI: 37.1 Code: 76225-7 Heart Rate 1: 76 bpm Height: 5'4" Respiratory Rate: 20 bpm Temperature: 36 .8 (C) / 98.3 (F) Weight: 216 lbs 12/28/2011 Blood Pressure 1: 128/68 Code: 8480-6 BMI: 37.6 Code: 38150-8 Heart Rate 1: 72 bpm Height: 5'4" [...] 1: 128/78 Code: 8480-6 BMI: 38.1 Code: 20780-8 Heart Rate 1: 84 bpm Height: 5'4" Respiratory Rate: 20 bpm Temperature: 36 .9 (C) / 98.4 (F) Weight: 222 lbs 08/16/2011 Blood Pressure 1: 138/80 Code: 8480-6 BMI: 37.9 Code: 00413-1 Heart Rate 1: 74 bpm Height: 5'4" Temperature: 36.1 (C) / 97.0 (F) Weight: 221 lbs 08/03/2011 Blood Pressure 1: 126/78 Code: 8480-6 BMI: 38.4 Code: 02047-4 Heart Rate 1: 72 bpm Height: 5'4" Respiratory Rate: 20 bpm Temperature: 36 .7 (C) / 98.0 (F) Weight: 224 lbs 07/26/2011 Blood Pressure 1: 138/72 Code: 8480-6 BMI: 38.4 Code: 14728-7 Heart Rate 1: 72 bpm Height: 5'4" Respiratory Rate: 20 bpm Temperature: 36 .6 (C) / 97.9 (F) Weight: 224 lbs 06/28/2011 Blood Pressure 1: 122/78 Code: 8480-6 BMI: 38.8 Code: 21939-7 Heart Rate 1: 88 bpm Height: 5'4" Respiratory Rate: 20 bpm Temperature: 36 .6 (C) / 97.8 (F) Weight: 226 lbs 03/31/2011 Blood Pressure 1: 116/60 Code: 8480-6 BMI: 38.1 Code: 45494-4 Heart Rate 1: 92 bpm Height: 5'4" Respiratory Rate: 20 bpm Temperature: 36 .8 (C) / 98.2 (F) Weight: 222 lbs 02/11/2011 Blood Pressure 1: 118/62 Code: 8480-6 BMI: 37.9 Code: 29772-9 Heart Rate 1: 80 bpm Height: 5'4" Temperature: 36.5 (C) / 97.7 (F) Weight: 221 lbs 10/15/2010 Blood Pressure 1: 132/70 Code: 8480-6 Heart Rate 1: 84 bpm Respiratory Rate: 20 bpm Temperature: 36.7 (C) / 98.0 (F) Weight: 221 lbs 09/29/2010 Blood Pressure 1: 114/72 Code: 8480-6 BMI: 37.6 Code: 38610-4 Heart Rate 1: 76 bpm Height: 5'4" [...] 1: 120/70 Code: 8480-6 BMI: 38.3 Code: 82547-9 Heart Rate 1: 88 bpm Height: 5'5" Temperature: 36.4 (C) / 97.6 (F) Weight: 230 lbs Functional Status No Functional Status data Reason For Visit Reason For Visit Effective Dates Notes follow up 03/20/2019 blood pressure check 03/13/2019 [...] but had more that day. [place] began to feel very ill and became [...] 06/09/2009 Encounters Encounter Performer Location Codes Date ([id number]) OFFICE/OUTPATIENT VISIT EST Diagnosis: Essential (primary) hypertension[ICD10: I10] Diagnosis: Palpitations[ICD10: R00.2] Vikki BENJAMIN [employer] CPT-4: 99641 03/20/2019 ([id number]) OFFICE/OUTPATIENT VISIT EST Diagnosis: Essential hypertension[ICD10: I10] Diagnosis: Palpitations[ICD10: R00.2] Diagnosis: Stress reaction[ICD10: F43.0] Vikki CIDER [employer] CPT-4: 77777 03/13/2019 ([id number]) NURSE/OUTPATIENT VISIT EST Diagnosis: Mixed hyperlipidemia[ICD10: E78.2] Vikki Shah [employer] CPT-4: 00298 01/23/2019 ([id number]) NURSE/OUTPATIENT VISIT EST Diagnosis: FLU VACCINE[ICD10: Z23] Vikki BALL [employer] CPT-4: 51281 12/26/2018 ([id number]) NURSE/OUTPATIENT VISIT EST Diagnosis: Chronic kidney disease, stage 1[ICD10: N18.1] Vikki GUAMAN DO [facility] CPT-4: 89611 12/15/2018 ([id number]) OFFICE/OUTPATIENT VISIT EST Diagnosis: Acute serous otitis media, left ear[ICD10: H65.02] Jennifer GUAMAN DO [facility] CPT-4: 27951 11/07/2018 ([id number]) OFFICE/OUTPATIENT VISIT EST Diagnosis: Essential (primary) hypertension[ICD10: I10] Diagnosis: 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] Diagnosis: Hypoglycemia, unspecified[ICD10: E16.2] Diagnosis: Other fatigue[ICD10: R53.83] Diagnosis: Urinary tract infection, site not specified[ICD10: N39.0] Vikki GUAMAN DO [facility] CPT-4: 48440 08/14/2018 ([id number]) OFFICE/OUTPATIENT VISIT EST Diagnosis: Essential (primary) hypertension[ICD10: I10] Diagnosis: Gastro-esophageal reflux disease without esophagitis[ICD10: K21.9] Diagnosis: Urinary tract infection, site not specified[ICD10: N39.0] Vikki GUAMAN [employer] [facility] CPT-4: 16678 05/10/2018 ([id number]) OFFICE/OUTPATIENT VISIT EST Diagnosis: Gastro-esophageal reflux disease without esophagitis[ICD10: K21.9] Diagnosis: Epigastric pain[ICD10: R10.13] Vikki GUAMAN [employer] [facility] CPT-4: 38212 02/14/2018 ([id number]) OFFICE/OUTPATIENT VISIT EST Diagnosis: 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] Diagnosis: Essential (primary) hypertension[ICD10: I10] Diagnosis: Generalized anxiety disorder[ICD10: F41.1] Diagnosis: Gastro-esophageal reflux disease without esophagitis[ICD10: K21.9] Vikki GUAMAN [employer] [facility] CPT-4: 79786 01/10/2018 OFFICE/OUTPATIENT VISIT EST Diagnosis: Gastro-esophageal reflux disease without esophagitis[ICD10: K21.9] Diagnosis: Palpitations[ICD10: R00.2] Diagnosis: Urinary tract infection, site not specified[ICD10: N39.0] Diagnosis: Generalized anxiety disorder[ICD10: F41.1] Vikki GUAMAN [employer] CPT-4: 66182 12/06/2017 ([id number]) NURSE/OUTPATIENT VISIT EST Diagnosis: 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] Diagnosis: Hypoglycemia, unspecified[ICD10: E16.2] Diagnosis: Dizziness and giddiness[ICD10: R42] Diagnosis: Occlusion and stenosis of bilateral carotid arteries[ICD10: I65.23] [facility] 00696 11/30/2017 OFFICE/OUTPATIENT VISIT EST Diagnosis: Epigastric pain[ICD10: R10.13] Diagnosis: Generalized anxiety disorder[ICD10: F41.1] Diagnosis: FLU VACCINE[ICD10: Z23] Vikki CID [facility] CPT-4: 57892 11/22/2017 ([id number]) OFFICE/OUTPATIENT VISIT EST Diagnosis: Essential (primary) hypertension[ICD10: I10] Diagnosis: Hypoglycemia, unspecified[ICD10: E16.2] Diagnosis: Gastro-esophageal reflux disease without esophagitis[ICD10: K21.9] [facility] 83491 10/20/2017 ([id number]) OFFICE/OUTPATIENT VISIT EST Diagnosis: Dizziness and giddiness[ICD10: R42] [facility] 20788 09/27/2017 ([id number]) OFFICE/OUTPATIENT VISIT EST Diagnosis: Cervicalgia[ICD10: M54.2] Diagnosis: Other spondylosis with radiculopathy, cervical region[ICD10: M47.22] [facility]: 34195 08/16/2017 ([id number]) OFFICE/OUTPATIENT VISIT EST Diagnosis: Hypoglycemia, unspecified[ICD10: E16.2] Diagnosis: Other spondylosis with radiculopathy, cervical region[ICD10: M47.22] Diagnosis: Vertigo of central origin, 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] Diagnosis: 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] Vikki GUAMAN [employer] CPT-4: 63209 07/07/2017 ([id number]) OFFICE/OUTPATIENT VISIT EST Diagnosis: Benign paroxysmal vertigo, bilateral[ICD10: H81.13] Diagnosis: Otalgia, bilateral[ICD10: H92.03] Jennifer GUAMAN [employer] CPT-4: 20614 05/30/2017 ([id number]) OFFICE/OUTPATIENT VISIT EST Diagnosis: Low back pain[ICD10: M54.5] Diagnosis: Radiculopathy, lumbosacral region[ICD10: M54.17] Diagnosis: Left lower quadrant pain[ICD10: R10.32] Vikki GUAMAN [facility] CPT-4: 49994 04/18/2017 ([id number]) OFFICE/OUTPATIENT VISIT EST Diagnosis: FLU VACCINE[ICD10: Z23] Vikki BALL [employer] [facility] CPT-4: 10116 12/10/2016 ([id number]) OFFICE/OUTPATIENT VISIT EST Diagnosis: Mixed hyperlipidemia[ICD10: E78.2] Diagnosis: Essential (primary) hypertension[ICD10: I10] Diagnosis: 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] Diagnosis: Impaired fasting glucose[ICD10: R73.01] Diagnosis: Other fatigue[ICD10: R53.83] Vikki Peckbhavya VIKKI GUAMAN [facility] CPT-4: 43193 11/01/2016 ([id number]) OFFICE/OUTPATIENT VISIT EST Diagnosis: Pain in thoracic spine[ICD10: M54.6] Diagnosis: Other intervertebral disc degeneration, 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] Vikki Deniz GUAMAN [employer] [facility] CPT-4: 46499 10/25/2016 ([id number]) OFFICE/OUTPATIENT VISIT EST Diagnosis: Left lower quadrant pain[ICD10: R10.32] Diagnosis: Low back pain[ICD10: M54.5] Vikki RUBI [facility] CPT-4: 94145 09/20/2016 ([id number]) OFFICE/OUTPATIENT VISIT EST Diagnosis: Mixed hyperlipidemia[ICD10: E78.2] Diagnosis: Essential (primary) hypertension[ICD10: I10] Diagnosis: Hypoglycemia, unspecified[ICD10: E16.2] [facility] 26682 05/13/2016 ([id number]) OFFICE/OUTPATIENT VISIT EST Diagnosis: Impaired fasting glucose[ICD10: R73.01] Diagnosis: Mastodynia[ICD10: N64.4] Diagnosis: Mixed hyperlipidemia[ICD10: E78.2] Diagnosis: Essential (primary) hypertension[ICD10: I10] Diagnosis: Other fatigue[ICD10: R53.83] [facility]: 51020 05/12/2016 ([id number]) OFFICE/OUTPATIENT VISIT EST Diagnosis: Acute upper respiratory infection, unspecified[ICD10: J06.9] [facility]ue [facility] C[facility]: 45041 03/18/2016 ([id number]) OFFICE/OUTPATIENT VISIT EST Diagnosis: Acute mastoiditis without complications, right ear[ICD10: H70.001] [facility] CPT[facility]: 90992 02/06/2016 ([id number]) OFFICE/OUTPATIENT VISIT EST Diagnosis: FLU VACCINE[ICD10: Z23] Vikki [facility]ID [facility] CPT-4: 89078 12/12/2015 ([id number]) OFFICE/OUTPATIENT VISIT EST Diagnosis: Mixed hyperlipidemia[ICD10: E78.2] Diagnosis: Essential (primary) hypertension[ICD10: I10] 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81] Diagnosis: Dizziness and giddiness[ICD10: R42] Diagnosis: Essential (primary) hypertension[ICD10: I10] Diagnosis: History of falling[ICD10: Z91.81] Vikki GUAMAN DO [facility] CPT-4: 58039 02/19/2015 ([id number]) OFFICE/OUTPATIENT VISIT EST Diagnosis: FLU VACCINE[ICD10: Z23] Vikki BALL [facility] CPT-4: 53061 12/20/2014 ([id number]) OFFICE/OUTPATIENT VISIT EST Diagnosis: Acute renal failure[ICD9: 584.9] Diagnosis: POLYURIA[ICD9: 788.42] Vikki Rees [facility] CPT-4: 51018 11/19/2014 ([id number]) OFFICE/OUTPATIENT VISIT EST Diagnosis: HYPERLIPIDEMIA NEC/NOS[ICD9: 272.4] Diagnosis: HYPERTENSION[ICD9: 401.9] Diagnosis: CAD[ICD9: 414.00] Diagnosis: Hyperglycemia[ICD9: 790.29] Diagnosis: MALAISE AND FATIGUE[ICD9: 780.79] Vikki GUAMAN DO [facility] CPT-4: 57487 11/14/2014 ([id number]) OFFICE/OUTPATIENT VISIT EST Diagnosis: MALAISE AND FATIGUE[ICD9: 780.79] Diagnosis: HYPOGLYCEMIA[ICD9: 251.2] Diagnosis: Grieving[ICD9: 309.0] Diagnosis: ABDOMINAL PAIN[ICD9: 789.00] Vikki CIDER [facility] CPT-4: 08290 11/13/2014 OFFICE/OUTPATIENT VISIT EST Diagnosis: CERUMEN IMPACTION[ICD9: 380.4] Diagnosis: EUSTACHIAN TUBE DYSFUNCTION[ICD9: 381.81] Jessenia GUAMAN DO [facility] CPT-4: 21477 09/27/2014 ([id number]) OFFICE/OUTPATIENT VISIT EST Diagnosis: Leg pain[ICD9: 729.5] Diagnosis: SUPERFIC PHLEBITIS-LEG[ICD9: 451.0] Vikki GUAMAN [facility] CPT-4: 41377 07/11/2014 ([id number]) OFFICE/OUTPATIENT VISIT EST Diagnosis: Thoracic back pain[ICD9: 724.1] Diagnosis: SPASM OF MUSCLE[ICD9: 728.85] Vikki GUAMAN [employer] CPT-4: 03931 05/23/2014 ([id number]) OFFICE/OUTPATIENT VISIT EST Diagnosis: DIZZINESS/VERTIGO[ICD9: 780.4] Diagnosis: Benign positional vertigo[ICD9: 386.11] Diagnosis: HYPERTENSION[ICD9: 401.9] Diagnosis: Suspicious nevus[ICD9: 238.2] Vikki GUAMAN [facility] CPT-4: 50674 03/20/2014 ([id number]) OFFICE/OUTPATIENT VISIT EST Diagnosis: FLU VACCINE[ICD10: Z23] Vikki BALL [facility] CPT-4: 01096 12/21/2013 OFFICE/OUTPATIENT VISIT EST Diagnosis: SINUSITIS, ACUTE[ICD9: 461.9] Diagnosis: EUSTACHIAN TUBE DYSFUNCTION[ICD9: 381.81] Jessenia GUAMAN DO [facility] CPT-4: 62718 10/17/2013 ([id number]) OFFICE/OUTPATIENT VISIT EST Diagnosis: DIZZINESS/VERTIGO[ICD9: 780.4] Diagnosis: HYPERTENSION[ICD9: 401.9] Vikki MARTINEZ [facility] CPT-4: 01469 09/24/2013 ([id number]) OFFICE/OUTPATIENT VISIT EST Diagnosis: HYPERTENSION[ICD9: 401.9] Diagnosis: MALAISE AND FATIGUE[ICD9: 780.79] Diagnosis: SINUSITIS, ACUTE[ICD9: 461.9] [facility] CPT-[facility]: 51030 05/31/2013 ([id number]) OFFICE/OUTPATIENT VISIT EST Diagnosis: HYPERLIPIDEMIA NEC/NOS[ICD9: 272.4] Diagnosis: HYPERTENSION[ICD9: 401.9] Diagnosis: B12 DEFIC ANEMIA NEC[ICD9: 281.1] Diagnosis: HYPOGLYCEMIA[ICD9: 251.2] Vikki PECK [facility] CPT-4: 63275 03/28/2013 OFFICE/OUTPATIENT VISIT EST Diagnosis: COUGH[ICD9: 786.2] [facility] CPT-[facility]: 01253 03/26/2013 OFFICE/OUTPATIENT VISIT EST Diagnosis: COUGH[ICD9: 786.2] Diagnosis: URI, ACUTE[ICD9: 465.9] Jessenia [facility]ID [facility] CPT-4: 49532 12/19/2012 ([id number]) OFFICE/OUTPATIENT VISIT EST Diagnosis: HYPERTENSION[ICD9: 401.9] Diagnosis: CEPHALGIA[ICD9: 784.0] Diagnosis: ANXIETY STATE NOS[ICD9: 300.00] Diagnosis: FLU VACCINE[ICD9: V04.81] Vikki PECK [facility] CPT-4: 36343 11/27/2012 ([id number]) OFFICE/OUTPATIENT VISIT EST Diagnosis: DIZZINESS/VERTIGO[ICD9: 780.4] Diagnosis: SINUSITIS, ACUTE[ICD9: 461.9] Diagnosis: Benign positional vertigo[ICD9: 386.11] [facility] CPT-4: 51382 10/04/2012 OFFICE/OUTPATIENT VISIT EST Diagnosis: OTITIS MEDIA NOS[ICD9: 382.9] [facility] CPT-4: 11121 07/27/2012 OFFICE/OUTPATIENT VISIT EST Diagnosis: Perforation of ear drum[ICD9: 384.20] Diagnosis: SINUSITIS, ACUTE[ICD9: 461.9] Vikki GUAMAN DO [facility] CPT-4: 49717 07/14/2012 ([id number]) OFFICE/OUTPATIENT VISIT EST Diagnosis: Mastalgia[ICD9: 611.71] Vikki BALL [facility] CPT-4: 71158 06/08/2012 ([id number]) OFFICE/OUTPATIENT VISIT EST Diagnosis: HYPERLIPIDEMIA NEC/NOS[ICD9: 272.4] Diagnosis: HYPERTENSION[ICD9: 401.9] Diagnosis: DIZZINESS/VERTIGO[ICD9: 780.4] Diagnosis: Hyperglycemia[ICD9: 790.29] Diagnosis: MALAISE AND FATIGUE[ICD9: 780.79] Vikki GUAMAN [facility] CPT-4: 39543 02/23/2012 ([id number]) OFFICE/OUTPATIENT VISIT EST Diagnosis: EUSTACHIAN TUBE DYSFUNCTION[ICD9: 381.81] Diagnosis: DIZZINESS/VERTIGO[ICD9: 780.4] Diagnosis: ABDOMINAL PAIN[ICD9: 789.00] Diagnosis: GERD[ICD9: 530.81] Diagnosis: CERUMEN IMPACTION[ICD9: 380.4] Vikki GUAMAN [facility] CPT-4: 50851 02/22/2012 OFFICE/OUTPATIENT VISIT EST Diagnosis: ABDOMINAL PAIN[ICD9: 789.00] Diagnosis: DYSPEPSIA[ICD9: 536.8] Vikki Rees [employer] CPT-4: 68850 12/28/2011 ([id number]) OFFICE/OUTPATIENT VISIT EST Diagnosis: ABDOMINAL PAIN[ICD9: 789.00] Diagnosis: DYSPEPSIA[ICD9: 536.8] Diagnosis: IBS[ICD9: 564.1] Vikki GUAMAN [facility] CPT - 4: 66124 12/15/2011 OFFICE/OUTPATIENT VISIT EST Diagnosis: DIZZINESS/VERTIGO[ICD9: 780.4] Diagnosis: HYPOGLYCEMIA[ICD9: 251.2] Vikki MARTINEZ [facility] CPT-4: 21165 09/21/2011 ([id number]) OFFICE/OUTPATIENT VISIT EST Diagnosis: URINARY TRACT INFECTION[ICD9: 599.0] Vikki GUAMAN [facility] CPT-4: 73573 09/16/2011 ([id number]) OFFICE/OUTPATIENT VISIT EST Diagnosis: HYPERLIPIDEMIA NEC/NOS[ICD9: 272.4] Diagnosis: HYPERTENSION[ICD9: 401.9] Diagnosis: MALAISE AND FATIGUE[ICD9: 780.79] Diagnosis: DIZZINESS/VERTIGO[ICD9: 780.4] Vikki GUAMAN DO [facility] CPT-4: 19049 09/15/2011 ([id number]) OFFICE/OUTPATIENT VISIT EST Diagnosis: DIZZINESS/VERTIGO[ICD9: 780.4] Diagnosis: MALAISE AND FATIGUE[ICD9: 780.79] Diagnosis: HYPERTENSION[ICD9: 401.9] Vikki MARTINEZ [facility] CPT-4: 50693 09/13/2011 OFFICE/OUTPATIENT VISIT EST Diagnosis: LUMB/LUMBOSAC DISC DEGEN[ICD9: 722.52] Diagnosis: Radiculopathy of leg[ICD9: 724.4] Diagnosis: 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] Diagnosis: SPINAL ENTHESOPATHY[ICD9: 720.1] Vikki GUAMAN [facility] CPT-4: 04809 08/16/2011 ([id number]) OFFICE/OUTPATIENT VISIT EST Diagnosis: PAIN, LOWER BACK[ICD9: 724.2] Diagnosis: SPASM OF MUSCLE[ICD9: 728.85] Diagnosis: SCIATICA[ICD9: 724.3] Diagnosis: Lumbar degenerative disc disease[ICD9: 722.52] Vikki GUAMAN [facility] CPT-4: 93906 08/03/2011 ([id number]) OFFICE/OUTPATIENT VISIT EST Diagnosis: PAIN IN THORACIC SPINE[ICD9: 724.1] Diagnosis: SPASM OF MUSCLE[ICD9: 728.85] Vikki GUAMAN DO [facility] CPT-4: 59675 07/26/2011 ([id number]) OFFICE/OUTPATIENT VISIT EST Diagnosis: PAIN, LOWER BACK[ICD9: 724.2] Diagnosis: SPASM OF MUSCLE[ICD9: 728.85] Diagnosis: Sacroiliac dysfunction[ICD9: 739.4] Diagnosis: Lumbar degenerative disc disease[ICD9: 722.52] Vikki GUAMAN DO [facility] CPT-4: 98916 06/28/2011 OFFICE/OUTPATIENT VISIT EST Diagnosis: MALAISE AND FATIGUE[ICD9: 780.79] Diagnosis: HYPOTENSION[ICD9: 458.9] Diagnosis: CAD[ICD9: 414.00] Vikki GUAMAN DO [facility] CPT-4: 94663 03/31/2011 OFFICE/OUTPATIENT VISIT EST Diagnosis: SINUSITIS, ACUTE[ICD9: 461.9] Diagnosis: PHARYNGITIS, ACUTE[ICD9: 462] Diagnosis: CERUMEN IMPACTION[ICD9: 380.4] Vikki GUAMAN DO [facility] CPT-4: 65320 02/11/2011 OFFICE/OUTPATIENT VISIT EST Diagnosis: PAIN IN THORACIC SPINE[ICD9: 724.1] Diagnosis: GERD[ICD9: 530.81] Diagnosis: DIZZINESS/VERTIGO[ICD9: 780.4] Vikki Deniz GUAMAN DO [facility] CPT-4: 32855 10/15/2010 OFFICE/OUTPATIENT VISIT EST Vikki PECK NDENegrita CHIN [facility] CPT- 4: 53788 09/29/2010 ([id number]) OFFICE/OUTPATIENT VISIT EST Vikkiluther PATHAK SSujata PECKNDER [facility] CPT-4: 12086 07/02/2010 ([id number]) OFFICE/OUTPATIENT VISIT, EST Diagnosis: PAIN, LOWER BACK[ICD9: 724.2] Vikki Ciscobhavya KEARNEYVIKKI AlejandraSujata PALAKER [facility] CPT-4: 22716 04/06/2010 ([id number]) OFFICE/OUTPATIENT VISIT, EST Vikki Ciscomikesakshi CAIO CHILANGOLUTHER Alyssa PECKNDER [facility] CPT-4: 99105 04/01/2010 ([id number]) OFFICE/OUTPATIENT VISIT, EST Vikkigabriel Peckmikesakshi CAIO CHILANGOLUTHER Alyssa GUAMAN DO [facility] CPT-4: 38775 01/22/2010 ([id number]) OFFICE/OUTPATIENT VISIT, BRYAN Shah [facility] CPT-4: 12271 12/02/2009 ([id number]) OFFICE/OUTPATIENT VISIT, BRYAN CRISOSTOMO SSujata [facility] CPT-4: 30946 10/21/2009 ([id number]) OFFICE/OUTPATIENT VISIT, BRYAN Shah [facility] CPT-4: 35373 09/10/2009 ([id number]) OFFICE/OUTPATIENT VISIT, [facility]AN [facility] CPT-4: 87189 08/11/2009 ([id number]) OFFICE/OUTPATIENT VISIT, [facility]AN [facility] CPT-4: 85603 06/09/2009 Plan of Care Planned Activity Notes Codes Status Date Visit Diagnosis Plan: Essential (primary) hypertension Discussion: Improving with higher dose of metoprolol Recheck 2weeks ICD-9 : 401.9 ICD-10 : I10 03/20/2019 Visit Diagnosis Plan: Palpitations Discussion: Continu e higher dose of metoprolol ICD-9 : 785.1 ICD-10 : R00.2 03/20/2019 Appointment: Vikki Guaman WPtel: [address] [place] [address] FOLLOW UP 03/20/2019 Appointment: Vikki Guaman WPtel: [address] [place], [place] [phone] 03/13/2019--moved up to [facility] 03/13/19 at 4pm (km) [place] 03/15/2019 Visit Diagnosis Plan: Palpitations Discussion: Check C BC, CMP, TSH ICD-9 : 785.1 ICD-10 : R00.2 03/13/2019 Visit Diagnosis Plan: Essential hypertension Discussio n: Increase metoprolol to 25mg q AM and 50mg po q pM Recheck 1 week ICD-9 : 401.9 ICD-10 : I10 03/13/2019 Appointment: Vikki Guaman WPtel: [address] [place] [address] BP CHECK 03/13/2019 Appointment: Vikki Guaman WPtel: [address] [place] [address] ACUTE ILLNESS 03/13/2019 Patient Education: metoprolol tartrate- [employer] [facility] [id number] https://www.[employer]/sampleme/resources/getResource/61/[email or web address] Completed 03/13/2019 Care Plan: X-RAY EXAM NECK SPINE 4/5VWS LOINC : 94777-3 Pending 03/13/2019 Care Plan: X-RAY EXAM THORAC SPINE4/>VW LOINC : 33137-5 Pending 03/13/2019 Appointment: Vikki Guaman WPtel: [address] [place] [address] US LAB 01/23/2019 Appointment: Vikki Guaman WPtel: [address] [place] [address] US INJECTION 12/26/2018 Patient Education: INFLUENZA VACCINE [facility] Completed 12/26/2018 Appointment: Vikki Guaman WPtel: [address] [place] [address] US LAB 12/15/2018 Visit Diagnosis Plan: Acute serous [...] ICD-10 : H65.02 11/07/2018 Appointment: Jennifer Rosario [address] [place] [address] ACUTE ILLNESS 11/07/2018 Visit Diagnosis Plan: Urinary [...] : R53.83 08/14/2018 Appointment: Vikki Guaman WPtel: [address] [place], [place] [phone] US FOLLOW UP 08/14/2018 Visit Diagnosis Plan: [...] 530.81 ICD-10 : K21.9 05/10/2018 Appointment: Vikki Guamantel: [address] [place], [place] [phone] US FOLLOW UP 05/10/2018 Patient Education: metoprolol tartrate- [employer] [facility] [id number] https://[email or web address]/sampleme/resources/getResource/61/[email or web address]-[email or web address] Completed 05/10/2018 Appointment: Vikki Guamantel: [address] [place], [place] [phone] US CANCELED 04/21/2018 Visit Diagnosis Plan: Gastro-esophageal reflux disease without esophagitis Discussion: Continue protonix and carafate Proceed with updated EGD ICD-9 : 530.81 ICD-10 : K21.9 02/14/2018 Visit Diagnosis Plan: Epigastric pain Discussion: [facility] CT abdomen/pelvis due to ongoing abdominal pain ICD-9 : 789.06 ICD-10 : R10.13 02/14/2018 Appointment: Vikki Guaman WPtel: [id number] [place] FOLLOW UP 02/14/2018 Care Plan: CT PELVIS W/O DYE LOINC : 361 08-9 Pending 02/14/2018 Care Plan: CT ABDOMEN W/O DYE LOINC : 36 103-0 Pending 02/14/2018 Care Plan: Referral Order SNOMED-CT : 30 [id number] Pending 02/14/2018 Visit Diagnosis Plan: Atherosclerotic he art disease of [place] coronary artery without angina pectoris Discussion: S/P [...] : I10 01/10/2018 Appointment: Vikki Guaman WPtel: [phone] [id number] [place] FOLLOW UP 01/10/2018 Visit Diagnosis Plan: Gastro-esophageal [...] F41.1 12/06/2017 Visit Diagnosis Plan: Palpitations Discussion: Poncho taveras going to schedule Adam ICD-9 : 785.1 ICD-10 : R00.2 12/06/2017 Appointment: Vikki Guaman WPtel: [address] [place] [address] FOLLOW UP 12/06/2017 Patient Education: Patient Medication Summary Completed 12/06/2017 Appointment: Vikki Guaman WPtel: [address] [place] [address] US LAB 11/30/2017 Patient Education: Patient Medication [...] : F41.1 11/22/2017 Appointment: Vikki Guaman WPtel: [address] [place] [address] FOLLOW UP 11/22/2017 Patient Education: Patient Medication [...] : K21.9 10/20/2017 Appointment: Vikki Guaman WPtel: [address] [place] [address] ACUTE ILLNESS 10/20/2017 Patient Education: Patient Medication Summary Completed 10/20/2017 Visit Diagnosis Plan: Dizziness and giddiness Discussi on: blood work to be completed in office including cmp, cbc, troponin to rule out glucose intolerance, infection, dehydration. instructed patient that she needs to see her corporate ethics officer sooner than oct and patient requested we contact dr. brown's office. will have front office make appt. patient has carotid doppler annually. ICD-9 : 780.4 ICD-10 : R42 09/27/2017 Appointment: Jennifer Rosario [address] [place] [address] ACUTE ILLNESS 09/27/2017 Patient Education: Patient Medication Summary Completed 09/27/2017 Visit Diagnosis Plan: Cervicalgia Discussion: Complete course of PT since symptoms improved Continue stretching exercises Notify if symptoms return or worsen ICD-9 : 723.1 ICD-10 : M54.2 08/16/2017 Appointment: Vikki Guaman WPtel: [address] [place] [address] FOLLOW UP 08/16/2017 Patient Education: Patient Medication [...] : H81.43 07/07/2017 Appointment: Vikki Guaman WPtel: [facility] [address] 07/07/2017 Patient Education: Patient Medication Summary Completed 07/07/2017 Care Plan: MRI NECK SPINE W/O DYE LOINC : 98255-8 Pending 07/07/2017 Visit Diagnosis Plan: Otalgia, bilateral [...] ICD-10 : H81.13 05/30/2017 Appointment: Jennifer Rosario [address] [place] [address] ACUTE ILLNESS 05/30/2017 Patient Education: Patient Medication [...] : M54.17 04/18/2017 Appointment: Vikki Guaman WPtel: [address] [place] [address] ACUTE ILLNESS 04/18/2017 Patient Education: Patient Medication Summary Completed 04/18/2017 Appointment: Vikki Guaman WPtel: [address] [place] [address] US INJECTION 12/10/2016 Patient Education: Patient Medication Summary Completed 12/10/2016 Appointment: Vikki Guaman WPtel: [address] [place], [place] [phone] US LAB 11/01/2016 Patient Education: Patient Medication Summary Completed 11/01/2016 Visit Diagnosis Plan: Pain in thoracic spine Discussio n: PT has helped Continue stretches and walking [facility]ed [facility] exercise ICD-9 : 724.1 ICD-10 : M54.6 10/25/2016 Visit Diagnosis Plan: Other intervertebral disc degene ration, lumbar region Follow Up: 3 months ICD-9 : 722.52 ICD-10 : M51.36 10/25/2016 Appointment: Vikki Guamantel: [address] [place] [address] US FOLLOW UP 10/25/2016 Patient Education: Patient Medication [...] : R10.32 09/20/2016 Appointment: Vikki Guaman WPtel: [address] [place] [address] ACUTE ILLNESS 09/20/2016 Patient Education: Patient Medication Summary Completed 09/20/2016 Appointment: Vikki Guaman WPtel: [address] [place] [address] LAB 05/13/2016 Patient Education: Patient Medication Summary [...] : N64.4 05/12/2016 Appointment: Vikki Guaman WPtel: [address] [place], [place] [phone] 3/7 confirmed `sl ACUTE ILLNESS 05/12/2016 Patient Education: Patient Medication Summary Completed 05/12/2016 Care Plan: MAMMOGRAM SCREENING LOINC : 2 6347-5 Pending 05/12/2016 Visit Diagnosis Plan: Acute upper respiratory infectio n, unspecified Discussion: Exam is reassuring Likely viral illness Supportive care reviewed and encouraged Follow up PRN ICD-9 : 465.9 ICD-10 : J06.9 03/18/2016 Appointment: Yue Moya [address] [place] [address] ACUTE ILLNESS 03/18/2016 Patient Education: Patient Medication Summary Completed 03/18/2016 Visit Plan: Supportive care. Rest, Fluid s, Tylenol/Motrin prn fever or bodyaches. Notify if worsening symptoms. 02/06/2016 Appointment: Vikki Guaman WPtel: [address] [place] [address] ACUTE ILLNESS 02/06/2016 Patient Education: Patient Medication Summary Completed 02/06/2016 Appointment: Vikki Guaman WPtel: [address] [place] [address] US INJECTION 12/12/2015 Patient Education: Patient Medication Summary Completed 12/12/2015 Appointment: Vikki Guaman WPtel: [address] [place] [address] LAB 11/25/2015 Patient Education: Patient Medication Summary Completed 11/25/2015 Visit Plan: Add miralax daily Use daily probiotic and metamucil and push fluids Notify if worsens/persists 08/26/2015 Appointment: Vikki Guaman WPtel: [address] [place] [address] 08/25/15 confirmed ~sl ACUTE ILLNESS 08/26/2015 Patient Education: Patient Medication Summary Completed 08/26/2015 Visit Plan: No NSAIDs Kidney function di scussed Discussed hydration Monitor lab every 4months so will check CMP, HbA1C next month 05/21/2015 Appointment: Vikki Guaman WPtel: [id number] 05/19 confirmed ~sl ACUTE ILLNESS 05/21/2015 Patient Education: Patient Medication Summary Completed 05/21/2015 Visit Plan: Vestibular exercises Refill flonase Strict low Na diet--discussed that needs to read labels Rx for walker with chair given due to muscle weakness/unsteadiness Has carotids and abdominal aorta and legs checked in March Check Chem 7 02/19/2015 Appointment: Vikki Guaman WPtel: [address] [place], [place] [phone] 02/18/15 appt confirmed cn FOLLOW UP 02/19 Patient Education: Patient Medication Summary Completed 02/19/2015 Patient Education: Vertigo Completed 1 04/22/2014 Appointment: Vikki Guaman WPtel: [address] [place], [place] [phone] INJECTION 12/20/2014 Patient Education: Patient Medication Summary Completed 12/20/2014 Appointment: Vikki Guaman WPtel: [address] [place], [place] [phone] UA 11/19/2014 Patient Education: Patient Medication Summary Completed 11/19/2014 Referral: Edy Cheek WPtel: #1 [facility] Referral Completed 11/18/2014 Appointment: Vikki Guaman WPtel: [address] [place], [place] [phone] LAB 11/14/2014 Patient Education: Patient Medication Summary Completed 11/14/2014 Visit Plan: Check CMP, CBC, TSH, Free T4 , B12, Lipids, HbA1C Discussed 6 small meals a day each with protein Would likely benefit from antidepressant Update colonoscopy 11/13/2014 Appointment: Vikki Guaman WPtel: [address] [place], [place] [phone] 11/12/14 confirmed ACUTE ILLNESS 11/13/2014 Patient Education: Patient Medication Summary Completed 11/13/2014 Visit Plan: Cerumen flush with warm wate r and peroxide - good results Resume Nasonex nasal spray daily Recommended Debrox earwax removal drops 09/27/2014 Appointment: Jessenia Francis WPtel: [address] [place] [address] ACUTE ILLNESS 09/27/2014 Patient Education: Patient Medication Summary Completed 09/27/2014 Visit Plan: Continue aspirin daily Add m eloxicam for 1week [employer] Call on Tuesday07/11/2014 Appointment: Vikki Guaman WPtel: [address] [place] [address] ACUTE ILLNESS 07/11/2014 Patient Education: Patient Medication Summary Completed 07/11/2014 Visit Plan: Been using baclofen at [facility] and has helped some PT for next 2-4weeks 05/23/2014 Appointment: Vikki Guaman WPtel: [address] [place] [address] Follow Up 05/23/2014 Patient Education: Patient Medication Summary Completed 05/23/2014 Appointment: Vikki Guaman WPtel: [address] [place] [address] LAB 05/10/2014 Appointment: Vikki Guaman WPtel: [address] [place] [address] feeling better, weather - FOLLOW UP 04/07 Referral: Edy Cheek WPtel: 1 [facility] Referral Appointment Requested 04/03/2014 Visit Plan: Continue exercise and curren t meds See surgery for removal of right arm lesion 03/20/2014 Appointment: Vikki Guaman WPtel: [address] [place], [place] [phone] FOLLOW UP 03/20/2014 Patient Education: Patient Medication Summary Completed 03/20/2014 Appointment: Vikki Guaman WPtel: [address] [place], [place] [phone] US INJECTION 12/21/2013 Patient Education: Patient Medication Summary Completed 12/21/2013 Appointment: Jessenia Francis WPtel: [address] [place] [address] ACUTE ILLNESS 10/17/2013 Patient Education: Patient Medication Summary Completed 10/17/2013 Visit Plan: Discussed that likely lumbar etiology for leg weakness Will change amlodopine to low dose dyazide and see if helps legs and inner ear 09/24/2013 Appointment: Vikki Guaman WPtel: [address] [place] [address] FOLLOW UP 09/24/2013 Patient Education: Patient Medication Summary Completed 09/24/2013 Visit Plan: Ceftin and continue claritin /flonase Decrease amlodopine to 2.5mg q HS until fwup with Card due to weakness 05/31/2013 Appointment: Vikki Guaman WPtel: [address] [place] [address] ACUTE ILLNESS 05/31/2013 Patient Education: Patient Medication Summary Completed 05/31/2013 Appointment: Vikki Guaman WPtel: [address] [place] [address] LAB 03/28/2013 Patient Education: Patient Medication Summary Completed 03/28/2013 Appointment: Jessenia Francis WPtel: [address] [place] [address] ACUTE ILLNESS 03/26/2013 Patient Education: Patient Medication Summary Completed 03/26/2013 Visit Plan: Supportive care. Rest, Fluid s, Tylenol prn fever or bodyaches. Notify if worsening symptoms. Ceftin 12/19/2012 Appointment: Jessenia Francis WPtel: [address] [place] [address] ACUTE ILLNESS 12/19/2012 Patient Education: Patient Medication Summary Completed 12/19/2012 Appointment: Vikki Guaman WPtel: [address] [place], [place] [id number] BP CHECK 12/04/2012 Patient Education: Patient Medication Summary Completed 12/04/2012 Appointment: Vikki Guaman WPtel: [address] [place], [place] [phone] ER Follow UP 11/27/2012 Patient Education: Patient Medication Summary Completed 11/27/2012 Visit Plan: Restart flonase BID Use mecl izine 25mg q HS Vestibular exercises Claritin 10mg q AM See ENT if doesn't resolve 10/04/2012 Appointment: Vikki Guaman WPtel: [address] [place] [address] ACUTE ILLNESS 10/04/2012 Patient Education: Patient Medication Summary Completed 10/04/2012 Visit Plan: Will continue to observe 07/27/2012 Appointment: Vikki Guaman WPtel: [address] [place] [address] FOLLOW UP 07/27/2012 Patient Education: Patient Medication [...] ear recheck. 07/14/2012 Appointment: Evelyn Santos WPtel: [address] [place], [place] [id number] ACUTE ILLNESS 07/14/2012 Patient Education: Patient Medication Summary Completed 07/14/2012 Visit Plan: Decrease caffeine intake Kristin ck Bilateral Mammogram with US of left breast 06/08/2012 Appointment: Vikki Guaman WPtel: [address] [place], [place] [id number] ACUTE ILLNESS 06/08/2012 Patient Education: Patient Medication Summary Completed 06/08/2012 Appointment: Alisia Campbell WPtel: [address] [place], [place] [phone] appt scheduled 04/06 ACUTE ILLNESS 04/10/2012 Appointment: Vikki Guamantel: [address] [place], [place] [phone] US LAB 02/23/2012 Patient Education: Patient Medication Summary Completed 02/23/2012 Visit Plan: Continue off carafate and se e how does Continue probiotic Add Vestibular exercises and use meclizine prn Continue Nasonex Check fasting lab including CMP, Lipids, CBC, TSH, Free T4, HbA1C 02/22/2012 Appointment: Vikki Guaman WPtel: [address] [place], [place] [id number] FOLLOW UP 02/22/2012 Patient Education: Patient Medication Summary Completed 02/22/2012 Visit Plan: Continue carafate for 4more weeks at current dose then decrease to BID for 2wks then q HS 12/28/2011 Appointment: Vikki Guaman WPtel: [address] [place], [place] [phone] FOLLOW UP 12/28/2011 Patient Education: Patient Medication Summary Completed 12/28/2011 Visit Plan: Continue omeprazole Add Judi fate 1gm po q AC Add daily probiotic 12/15/2011 Appointment: Vikki Guaman WPtel: [address] [place], [place] [phone] ACUTE ILLNESS 12/15/2011 Patient Education: Patient Medication Summary Completed 12/15/2011 Appointment: Vikki Guaman WPtel: [address] [place], [place] [phone] US INJECTION 12/02/2011 Patient Education: Patient Medication Summary Completed 12/02/2011 Visit Plan: Diabetic Diet Accuchecks BID alternating times Hold onglyza and Januvia for now and continue diet and exercise and weight loss and moniter BS Discussed hypoglycemia and snack of peanut butter and crackers with juice or milk 09/21/2011 Appointment: Vikki Guaman WPtel: [address] [place], [place] [phone] WORK IN 09/21/2011 Patient Education: Patient Medication Summary Completed 09/21/2011 Appointment: Vikki Guaman WPtel: [address] [place] [address] 09/16/2011 Patient Education: Patient Medication Summary Completed 09/16/2011 Appointment: Vikki Guaman WPtel: [address] [place] [address] 09/15/2011 Patient Education: Patient Medication Summary Completed 09/15/2011 Appointment: Vikki Guaman WPtel: [address] [place] [address] ACUTE ILLNESS 09/13/2011 Patient Education: Patient Medication Summary Completed 09/13/2011 Visit Plan: Injection to Right SI joint as above Pt will call in 3 days on pain Has PT starting in 2wks. 08/16/2011 Appointment: Vikki Guaman WPtel: [address] [place] [address] ACUTE ILLNESS 08/16/2011 Patient Education: Patient Medication Summary Completed 08/16/2011 Visit Plan: OMT done Start PT May need u pdated MRI if need to consider epidural Prednisone 08/03/2011 Appointment: Vikki Guaman WPtel: [address] [place] [address] OMT 08/03/2011 Patient Education: Patient Medication Summary Completed 08/03/2011 Visit Plan: Flexeril and Vimovo OMT done Daily stretches 07/26/2011 Appointment: Vikki Guaman WPtel: [address] [place] [address] ACUTE ILLNESS 07/26/2011 Patient Education: Patient Medication Summary Completed 07/26/2011 Visit Plan: OMT done Daily stretches Roque st heat or biofreeze Right SI joint injection Call in 1week Vimovo BID 06/28/2011 Appointment: Vikki Guaman WPtel: [address] [place] [address] ACUTE ILLNESS 06/28/2011 Patient Education: Patient Medication Summary Completed 06/28/2011 Appointment: Vikki Guamantel: [address] [place] [address] LAB 04/01/2011 Patient Education: Patient Medication Summary Completed 04/01/2011 Visit Plan: Decrease amlodopine to 1.25m g daily Schedule with Cardiology Fasting lab in AM 03/31/2011 Appointment: Vikki Guaman WPtel: [address] [place] [address] ACUTE ILLNESS 03/31/2011 Patient Education: Patient Medication Summary Completed 03/31/2011 Visit Plan: Saline nasal flushes prn. Ty lenol/Motrin prn headache. Notify if persists/symptoms worsening. Cerumen removal from ears as above 02/11/2011 Appointment: Vikki Guaman WPtel: [address] [place] [address] ACUTE ILLNESS 02/11/2011 Patient Education: Patient Medication Summary Completed 02/11/2011 Appointment: Vikki Guamantel: [address] [place] [address] US INJECTION 12/09/2010 Patient Education: Patient Medication Summary Completed 12/09/2010 Visit Plan: Continue vimovo for 1more we ek Increase Omeprazole to BID for 1mo then resume QD if stomach improved Vestibular exercises with meclizine q HS for next week 10/15/2010 Appointment: Vikki Guamantel: [address] [place] [address] FOLLOW UP 10/15/2010 Patient Education: Patient Medication Summary Completed 10/15/2010 Appointment: Vikki Guaman WPtel: [address] [place] [address] ACUTE ILLNESS 09/29/2010 Patient Education: Patient Medication Summary Completed 09/29/2010 Appointment: Vikki Guaman WPtel: [address] [place], [place] [id number] LAB 07/06/2010 Patient Education: Patient Medication Summary Completed 07/06/2010 Visit Plan: Saline nasal flushes prn. Ty lenol/Motrin prn headache. Notify if persists/symptoms worsening. Add Veramyst Increase Omeprazole to 20mg po BID 07/02/2010 Appointment: Vikki Guaman WPtel: [address] [place] [address] ACUTE ILLNESS 07/02/2010 Patient Education: Patient Medication Summary Completed 07/02/2010 Appointment: Vikki Guaman WPtel: [address] [place] [address] FOLLOW UP 04/06/2010 Patient Education: Patient Medication Summary Completed 04/06/2010 Appointment: Vikki Guaman WPtel: [address] [place] [address] ACUTE ILLNESS 04/01/2010 Patient Education: Patient Medication Summary Completed 04/01/2010 Visit Plan: Nasocourt sample given. Pt. will notify if symptoms are worse on Tuesday. 01/22/2010 Appointment: Alisia Campbell WPtel: [address] [place] [address] ACUTE ILLNESS 01/22/2010 Patient Education: Patient Medication Summary Completed 01/22/2010 Appointment: Vikki Guaman WPtel: [address] [place] [address] US INJECTION 12/10/2009 Patient Education: Patient Medication Summary Completed 12/10/2009 Appointment: Vikki Guaman WPtel: [address] [place] [address] FOLLOW UP 12/02/2009 Patient Education: Patient Medication Summary Completed 12/02/2009 Patient Education: Lexapro Completed 0 12/02/2009 Visit Plan: May proceed with hiatal ryan ia repair per Card. so will contact Dr. Mariscal's office to proceed with surgery Trial of Lexapro 5mg QD plus use xanax prn 10/21/2009 Appointment: Vikki Guaman WPtel: [address] [place] [address] FOLLOW UP 10/21/2009 Patient Education: Patient Medication Summary Completed 10/21/2009 Visit Plan: B12 given Cont oral B12 and iron Fwup 1mo for B12 Proceed with hiatal hernia repair once card clearance 09/10/2009 Appointment: Vikki Guaman WPtel: [address] [place] [address] FOLLOW UP 09/10/2009 Patient Education: Patient Medication Summary Completed 09/10/2009 Appointment: Vikki Guaman WPtel: [address] [place] [address] FOLLOW UP 08/11/2009 Patient Education: Patient Medication Summary Completed 08/11/2009 Appointment: Vikki Guaman WPtel: [address] [place] [address] US LAB 06/10/2009 Patient Education: Patient Medication Summary Completed 06/10/2009 Visit Plan: Check fasting lab in AM--CMP ,Lipids, CBC, Vit D, TSH,FreeT4, B12 06/09/2009 Appointment: Vikki Guaman WPtel: [address] [place] [address] FOLLOW UP 06/09/2009 Patient Education: Patient Medication Summary Completed 06/09/2009 Referral: Edy Cheek WPtel: [address] [place] [address] [place] Referral Appointment Requested Referral: Edy Cheek WPtel: [address] Referral Initiated Instructions Comment . Supportive [...] ear syringe and then last removed with fr[place]--peroxide drops instilled. Tolerated well, no complications, TM [...]
--- OUTSIDE RECORDS SUMMARY | 2019-04-25 20:22 | XMS REPORT | CCD ---
Author Author Evelyne Guaman D.O. Organization [facility] Address [address] [place] [address] Phone Care Team Providers Care Rn Telehealth Name Role Phone Vikki Guaman D.O. PP Unavailable CCM Unavailable Summary Purpose Interface Exchange Insurance Providers Payer name Policy type / Coverage type Covered alliance party ID Effective Begin Date Effective End Date WPS MEDICARE PART B [place] Medicare Part B [id number] 2017 Unknown [employer] [facility] Medicare Part B [id number] Unknown Family history Father Diagnosis Age At Onset Heart disease Unknown Mother Diagnosis Age At Onset Heart disease Unknown Cancer Unknown Social History Social History Element Codes Description Effective Dates Tobacco history SNOMED CT: 744544594 Never smoker 09/29/2010 Marital status Unknown Single [...] R10.13 11/22/2017 Active 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: [...] Start Date Stop Date Status Fill Instructions simvastatin 40 mg tablet RxNorm: 465721 1 Tablet(s) Oral QD 020 12/24/2019 Active omeprazole 40 mg capsule,delayed release RxNorm: 061777 1 Capsu le(s) Oral QD 03/30/2019 12/24/2019 Active metoprolol tartrate 25 mg tablet RxNorm: 968288 1 Table t(s) Oral QAM and two tablets (50mg) in the evening 03/30/2019 06/27/2019 Active omeprazole 40 mg capsule,delayed release RxNorm: 906256 1 Capsu le(s) Oral QD 03/27/2019 03/29/2019 Inactive Xanax 0.25 mg tablet RxNorm: 234266 TAKE 1 TABLET BY [facility] TWICE DAILY 1 Tablet(s) Oral two times a day as needed as needed for anxiety 03/27/2019 03/27/2019 Inactive simvastatin 40 mg tablet RxNorm: 983012 1 Tablet(s) Oral QD 03/29/2019 Inactive metoprolol tartrate 25 mg tablet RxNorm: 458291 1 Table t(s) Oral QAM and two tablets (50mg) in the evening 03/27/2019 03/29/2019 Inactive metoprolol tartrate 25 mg tablet RxNorm: 309292 1 Table t(s) Oral QAM and two tablets (50mg) in the evening 03/20/2019 03/26/2019 Inactive Flonase Allergy Relief 50 mcg/actuation nasal spray,suspensi on RxNorm: 5263479 2 [place] Nasal every night at bedtime 03/13/2019 03/13/2019 Inactive simvastatin 40 mg tablet RxNorm: 043727 1 Tablet(s) PO QD 01/22/2019 03/26/2019 Inactive omeprazole 40 mg capsule,delayed release RxNorm: 515554 1 Capsu le(s) Oral QD 01/10/2019 03/26/2019 Inactive Xanax 0.25 mg tablet RxNorm: 143610 TAKE 1 TABLET BY MOUTH TWIC E DAILY 01/02/2019 03/26/2019 Inactive omeprazole 40 mg capsule,delayed release RxNorm: 454973 1 Capsu le(s) PO QD 12/11/2018 01/09/2019 Inactive metoprolol tartrate 25 mg tablet RxNorm: 240718 1 Tablet(s) PO BID 11/20/2018 03/19/2019 Inactive omeprazole 40 mg capsule,delayed release RxNorm: 415375 1 Capsu le(s) PO QD 11/13/2018 12/10/2018 Inactive Flonase Allergy Relief 50 mcg/actuation nasal spray,suspensi on RxNorm: 6194129 2 [place] NASAL QHS 11/07/2018 03/12/2019 Inactive simvastatin 40 mg tablet RxNorm: 841697 1 Tablet(s) PO QD 10/23/2018 01/20/2019 Inactive simvastatin 40 mg tablet RxNorm: 159173 1 Tablet(s) PO QD 07/24/2018 10/21/2018 Inactive omeprazole 40 mg capsule,delayed release RxNorm: 785260 1 Capsu le(s) PO QD 07/13/2018 11/09/2018 Inactive simvastatin 40 mg tablet RxNorm: 357518 1 Tablet(s) PO QD 06/13/2018 07/12/2018 Inactive omeprazole 40 mg capsule,delayed release RxNorm: 160117 1 Capsu le(s) PO QD 06/13/2018 07/12/2018 Inactive Bactrim DS 800 mg-160 mg tablet RxNorm: 687105 1 Tablet(s) PO BID 0 05/12/2018 05/18/2018 Inactive Bactrim DS 800 mg-160 mg tablet RxNorm: 529858 1 Tablet(s) PO BID 0 05/12/2018 05/11/2018 Inactive Macrobid 100 mg capsule RxNorm: 866034 1 Capsule(s) PO BID 05/11/1905/16/2018 Inactive metoprolol tartrate 25 mg tablet RxNorm: 767190 1 Tablet(s) PO BID 05/10/2018 11/05/2018 Inactive Xanax 0.25 mg tablet RxNorm: 957597 TAKE 1 TABLET BY MOUTH TWIC E DAILY 02/16/2018 01/01/2019 Inactive Xanax 0.25 mg tablet RxNorm: 537371 1 Tablet(s) PO BID 02/14/2018 Inactive Protonix 40 mg tablet,delayed release RxNorm: 646291 1 Tablet(s) PO BID for stomach--replaces omeprazole 01/10/2018 05/09/2018 Inactive Carafate 1 gram tablet RxNorm: 685282 1 Tablet(s) PO AC & HS 201705/09/2018 Inactive Xanax 0.25 mg tablet RxNorm: 420782 1 Tablet(s) PO BID 01/03/201812/2017 Inactive Bactrim DS 800 mg-160 mg tablet RxNorm: 250833 1 Tablet(s) PO BID 1 12/12/2017 Inactive Bactrim DS 800 mg-160 mg tablet RxNorm: 417120 1 Tablet(s) PO BID 1 12/07/2017 Inactive Carafate 1 gram tablet RxNorm: 292144 1 Tablet(s) PO AC & HS 201712/21/2017 Inactive Protonix 40 mg tablet,delayed release RxNorm: 844044 1 Tablet(s) PO BID for stomach--replaces omeprazole 11/22/2017 01/09/2018 Inactive Protonix 40 mg tablet,delayed release RxNorm: 080863 1 Tablet(s) PO BID for stomach--replaces omeprazole 10/20/2017 11/21/2017 Inactive fluticasone 50 mcg/actuation nasal spray,suspension RxNorm: 6007929 2 [place] NASAL QD to each nostril 07/07/2017 08/13/2018 Inactive Nasonex 50 mcg/actuation [place] RxNorm: 2724137 2 [place] NASAL 201707/07/2017 Inactive omeprazole 40 mg capsule,delayed release RxNorm: 201335 1 Capsu le(s) PO QD 04/18/2017 10/19/2017 Inactive simvastatin 40 mg tablet RxNorm: 301225 1 Tablet(s) PO QD TAKE 1 TABLET EVERY DAY 04/18/2017 04/12/2018 Inactive metoprolol tartrate 25 mg tablet RxNorm: 799353 1/2 Tablet(s) PO QD 04/18/2017 01/09/2018 Inactive simvastatin 40 mg tablet RxNorm: 653573 Tablet(s) TAKE 1 TABLET EVERY DAY 10/27/2016 04/17/2017 Inactive metoprolol tartrate 25 mg tablet RxNorm: 721240 1/2 Tablet(s) PO QD 09/20/2016 03/18/2017 Inactive Flonase 50 mcg/actuation nasal spray,suspension RxNorm: 1797 933 2 [place] NASAL BID 09/20/2016 04/17/2017 Inactive omeprazole 40 mg capsule,delayed release RxNorm: 470349 1 Capsu le(s) PO QD 09/08/2016 04/17/2017 Inactive metoprolol tartrate 25 mg tablet RxNorm: 194563 1/2 Tablet(s) PO QD 06/14/2016 09/19/2016 Inactive ciprofloxacin 0.2 % ear drops in a dropperette RxNorm: 67017 6 4 Drop(s) OTIC TID for 1 week 02/06/2016 05/11/2016 Inactive cefdinir 300 mg capsule RxNorm: 013732 2 Capsule(s) PO QD 02/06/2016 02/15/2016 Inactive omeprazole 40 mg capsule,delayed release RxNorm: 422915 TAKE 1 CAPSULE EVERY DAY 11/06/2015 09/08/2016 Inactive simvastatin 40 mg tablet RxNorm: 033754 TAKE 1 TABLET EVERY DAY 05/201510/27/2016 Inactive Flonase 50 mcg/actuation nasal spray,suspension RxNorm: 1797 933 2 [place] NASAL BID 02/19/2015 09/19/2016 Inactive cefuroxime axetil 250 mg tablet RxNorm: 039646 1 Tablet(s) PO BID 0 11/21/2014 11/20/2014 Inactive cefuroxime axetil 250 mg tablet RxNorm: 431025 1 Tablet(s) PO BID 0 11/21/2014 11/27/2014 Inactive omeprazole 40 mg capsule,delayed release RxNorm: 825021 1 Capsu le(s) PO QD 10/09/2014 01/05/2015 Inactive meloxicam 7.5 mg tablet RxNorm: 490777 1 Tablet(s) PO QD 07/11/2014 0 08/09/2014 Inactive loratadine 10 mg tablet RxNorm: 042978 1 Tablet(s) PO QAM for a llergies 10/17/2013 08/13/2018 Inactive Flonase 50 mcg/actuation nasal spray,suspension RxNorm: 8963 23 2 [place] NASAL BID 10/17/2013 02/18/2015 Inactive prednisone 20 mg tablet RxNorm: 668484 2 Tablet(s) PO BID 10/17/2013 10/21/2013 Inactive Dyazide 37.5 mg-25 mg capsule RxNorm: 367805 1 Capsule(s) PO QAM 10/16/2013 Inactive Ceftin 500 mg tablet RxNorm: 559563 1 Tablet(s) PO BID 05/31/201307/2013 Inactive Ceftin 500 mg tablet RxNorm: 531807 1 Tablet(s) PO BID 03/26/2013 Inactive simvastatin 40 mg tablet RxNorm: 173038 Tablet(s) PO TA KE ONE TABLET BY MOUTH EVERY DAY 03/26/2013 10/07/2015 Inactive metoprolol tartrate 25 mg tablet RxNorm: 818754 Tablet( s) PO TAKE ONE-HALF TABLET BY MOUTH EVERY DAY 03/26/2013 11/12/2014 Inactive Ceftin 500 mg tablet RxNorm: 959099 1 Tablet(s) PO BID 12/19/2012 Inactive loratadine 10 mg tablet RxNorm: 032972 1 Tablet(s) PO QAM for a llergies 10/04/2012 12/02/2012 Inactive omeprazole 20 mg capsule,delayed release RxNorm: 326996 Capsule(s) PO TAKE ONE CAPSULE BY MOUTH TWICE DAILY 08/09/2012 10/08/2014 Inactive omeprazole 20 mg capsule,delayed release RxNorm: 601455 1 Capsu le(s) PO BID 08/09/2012 05/09/2018 Inactive Augmentin 875 mg-125 mg tablet RxNorm: 049158 1 Tablet(s) PO Q12H 0 07/14/2012 07/23/2012 Inactive Floxin Otic Drops 1 bottle Drops RxNorm: 5 Drop(s) OTIC BID 07/20/2012 Inactive metoprolol tartrate 25 mg tablet RxNorm: 850989 Tablet( s) PO TAKE ONE-HALF TABLET BY MOUTH EVERY DAY 04/11/2012 03/25/2013 Inactive simvastatin 40 mg tablet RxNorm: 523553 Tablet(s) PO TA KE ONE TABLET BY MOUTH EVERY DAY 04/11/2012 03/25/2013 Inactive lancets RxNorm: Misc Miscellaneous USE ONE TO CH JEFFERY GLUCOSE EVERY DAY 04/04/2012 05/09/2018 Inactive Carafate 1 gram tablet RxNorm: 016572 1 Tablet(s) PO AC & HS 201111/12/2014 Inactive Flagyl 500 mg tablet RxNorm: 196496 1 Tablet(s) PO TID 12/15/2011 Inactive Carafate 1 gram tablet RxNorm: 603854 1 Tablet(s) PO AC & HS 201102/12/2012 Inactive One Touch Test strips RxNorm: Miscellaneous QD 09/21/2011 05/09/2018 Inactive one touch ultra mini test strips Protonix 40 mg Tab RxNorm: 287656 1 Tablet(s) PO QD 09/13/20112011 Inactive Protonix 40 mg Tab RxNorm: 350276 1 Tablet(s) PO QD 09/13/20112011 Inactive prednisone 20 mg Tab RxNorm: 541369 1 Tablet(s) PO BID 08/03/201106/2011 Inactive Flexeril 5 mg Tab RxNorm: 645070 1 Tablet(s) PO QHS for spasm 07/2508/24/2011 Inactive Flexeril 5 mg Tab RxNorm: 316819 1 Tablet(s) PO QHS for spasm 06/2707/25/2011 Inactive amlodipine 2.5 mg Tab RxNorm: 463209 1/2 Tablet(s) PO QD replac es 5mg dose 03/31/2011 06/27/2011 Inactive simvastatin 40 mg tablet RxNorm: 404480 1 Tablet(s) PO QD 03/31/2011 03/24/2012 Inactive metoprolol tartrate 25 mg tablet RxNorm: 765707 1/2 Tablet(s) PO QD 03/31/2011 03/24/2012 Inactive omeprazole 20 mg capsule,delayed release RxNorm: 181225 1 Capsu le(s) PO BID 03/31/2011 09/12/2011 Inactive cefdinir 300 mg Cap RxNorm: 057570 2 Capsule(s) PO QD 02/11/201102/04 Inactive simvastatin 40 mg Tab RxNorm: 742214 1 Tablet(s) PO QD 02/01/2011 Inactive metoprolol tartrate 25 mg Tab RxNorm: 235013 1/2 Tablet(s) PO QD 03/30/2011 Inactive metoprolol tartrate 25 mg Tab RxNorm: 113972 1/2 Tablet(s) PO QD 12/28/2010 Inactive meclizine 25 mg Tab RxNorm: 1447552 1 Tablet(s) PO QHS 10/15/201011/2010 Inactive for dizziness Ceftin 500 mg Tab RxNorm: 038322 1 Tablet(s) PO BID 07/02/20102010 Inactive omeprazole 20 mg Cap, Delayed Release RxNorm: 835128 1 Capsule( s) PO BID 07/02/2010 12/28/2010 Inactive simvastatin 40 mg Tab RxNorm: 094210 1 Tablet(s) PO QD 06/30/201007/2018 Inactive simvastatin 40 mg Tab RxNorm: 156783 1 Tablet(s) PO QD 06/30/2010 Inactive simvastatin 40 mg Tab RxNorm: 196515 1 Tablet(s) PO QD 02/25/2010 Inactive Tessalon Perles 100 mg Cap RxNorm: 537546 1 Capsule(s) PO Q6-8H 01/28/2010 Inactive cefdinir 300 mg Cap RxNorm: 036261 1 Capsule(s) PO BID 01/22/2010 Inactive Lexapro 10 mg Tab RxNorm: 378648 1 Tablet(s) PO QD 12/02/2009 010 Inactive Cipro 250 mg Tab RxNorm: 439508 1 Tablet(s) PO BID 12/02/2009 010 Inactive Wellbutrin XL 150 mg 24 hr Tab RxNorm: 196382 1 Tablet(s) PO QAM 08/07/2009 Inactive Fish Oil 1,000 mg Cap RxNorm: 1 Capsule(s) PO QD No Start Date Active Tylenol Extra Strength 500 mg tablet RxNorm: 535431 1/2 Tablet( s) PO as needed No Start Date Active nitroglycerin 0.4 mg sublingual tablet RxNorm: 111075 Tablet(s) SL as needed No Start Date Active Calcium with Vitamin D 600 mg (1,500 mg)-400 unit tablet RxN orm: 186539 1 Tablet(s) PO QD No Start Date Active Multivitamin & Mineral Formula Tab RxNorm: 1 Tablet(s) PO QD No St art Date Active vitamin B complex capsule RxNorm: 1 Capsule(s) PO QD No Start Date Active Aspirin 81 mg Tab RxNorm: 390529 1 Tablet(s) PO QD No Start Date Active isosorbide mononitrate ER 30 mg tablet,extended release 24 h r RxNorm: 822560 1 Tablet(s) PO QHS No Start Date Active Vitamin D 1,000 unit Cap RxNorm: 165114 1 Capsule(s) PO QD No Start D ate Active Co Q-10 oral RxNorm: 50518 oral No Start Date Active metoprolol tartrate 25 mg Tab RxNorm: 047298 1/2 Tablet(s) PO QD No Start Date 12/27/2010 Inactive Nasonex 50 mcg/actuation [place] RxNorm: 0588538 2 [place] NASAL No Sta rt Date 07/06/2017 Inactive Vitamin B12 1000mcg Tablet RxNorm: 1 Tablet(s) PO QD No Start Date 11/12/2014 Inactive amlodipine 5 mg Tab RxNorm: 648899 1 Tablet(s) PO QD No Start Date Inactive simvastatin 40 mg tablet RxNorm: 296708 1 Tablet(s) PO QD No Start Date 06/12/2018 Inactive omeprazole 20 mg capsule,delayed release RxNorm: 862965 1 Capsu le(s) PO BID No Start Date 08/08/2012 Inactive omeprazole 40 mg capsule,delayed release RxNorm: 428035 1 Capsu le(s) PO QD No Start Date 06/12/2018 Inactive Nexium 40 mg Cap RxNorm: 171062 1 Capsule(s) PO QD No Start Date 01/05 Inactive Stool Softener 100 mg Tab RxNorm: 6284430 2 Tablet(s) PO BID No Sta rt Date 03/30/2011 Inactive Calcium with Vitamin D 600 mg (1,500 mg)-400 unit Tab RxNorm : 458276 1 Tablet(s) PO QD No Start Date 11/12/2014 Inactive iron 325 mg (65 mg iron) Tab RxNorm: 295604 1 Tablet(s) PO QD No St art Date 11/12/2014 Inactive Flonase 50 mcg/actuation Nasal [place] RxNorm: 912024 2 [place] DEMOND AL BID No Start Date 10/16/2013 Inactive fluticasone 50 mcg/actuation nasal spray,suspension RxNorm: 3203159 2 [place] NASAL QD to each nostril No Start Date 07/06/2017 Inactive Nasonex 50 mcg/actuation [place] RxNorm: 9226194 2 [place] NASAL QD No Start Date 07/06/2017 Inactive hydralazine 50 mg tablet RxNorm: 191922 1 Tablet(s) PO as needed for BP over 160/90 No Start Date 11/21/2017 Inactive Vimovo 500 mg-20 mg 12 hr Tab RxNorm: 416926 1 Tablet(s) PO BID No Start Date 02/10/2011 Inactive Tylenol PM 25 mg-500 mg/15 mL Oral Soln RxNorm: 5033153 1 PO QPM No Start Date 11/12/2014 Inactive Iron (Ferrous Sulfate) Oral RxNorm: Oral No Start Date 03/30/19 12 Inactive Reglan 10 mg Tab RxNorm: 932509 1 Tablet(s) PO TID before meals No Start Date 02/10/2011 Inactive Xanax 1 mg Tab RxNorm: 134042 1/2 Tablet(s) PO QD No Start Date 11/21 Inactive amlodipine 10 mg tablet RxNorm: 128945 1 Tablet(s) PO QD No Start D ate 09/23/2013 Inactive Iron (dried) Oral RxNorm: Oral No Start Date 03/30/2011 Inactiv e metoprolol tartrate 50 mg tablet RxNorm: 922888 1 Tablet(s) PO BID No Start Date 02/13/2018 Inactive Xanax 0.25 mg tablet RxNorm: 239569 1 Tablet(s) PO BID No Start Date 01/02/2018 Inactive lancets RxNorm: Miscellaneous check blood sugar at least once daily No Start Date 04/03/2012 Inactive simvastatin 40 mg Tab RxNorm: 767885 1 Tablet(s) PO QD No Start Date 02/24/2010 Inactive isosorbide mononitrate ER 30 mg tablet,extended release 24 h r RxNorm: 219244 1 Tablet(s) PO QHS No Start Date 08/13/2018 Inactive amlodipine 2.5 mg tablet RxNorm: 594095 1 Tablet(s) PO QD No Start Date 09/23/2013 Inactive sucralfate 1 gram tablet RxNorm: 305960 1 Tablet(s) PO QID No Start Date 05/09/2018 Inactive Fish Oil Oral RxNorm: Oral No Start Date 03/31/2011 Inactive Multiple Vitamin Oral RxNorm: Oral No Start Date 03/31/[address] [place] [facility] metoprolol tartrate 25 mg tablet RxNorm: 815043 1/2 Tablet(s) P O QD No Start Date 06/13/2016 Inactive metoprolol tartrate 50 mg tablet RxNorm: 059388 1/2 Tablet(s) P O BID No Start Date 05/09/2018 Inactive Flonase Allergy Relief 50 mcg/actuation nasal spray,suspensi on RxNorm: 2799597 2 [place] NASAL QHS No Start Date 11/06/2018 Inactive [...] Code Item Item Code Result Date [facility] Location COMPLETE BLOOD COUNT [id number] WBC 7.1 10e9/L 03/13/19 20 Unknown COMPLETE BLOOD COUNT [id number] RBC 4.16 10e12/L 2019 Unknown COMPLETE BLOOD COUNT [id number] HEMOGLOBIN 12.4 g/dL 03/13/19 20 Unknown COMPLETE BLOOD COUNT [id number] HEMATOCRIT 39.3 % 03/13/19 20 Unknown COMPLETE BLOOD COUNT [id number] MCV 94.5 fL 0 Unknown COMPLETE BLOOD COUNT [id number] MCH 29.8 pg 0 Unknown COMPLETE BLOOD COUNT [id number] MCHC 31.6 g/dL 0 Unknown COMPLETE BLOOD COUNT [id number] PLATELET COUNT 161 10e9/L 09/2019 Unknown COMPLETE BLOOD COUNT [id number] Mean Plt Volume 10.8 fL 09/2019 Unknown COMPLETE BLOOD COUNT [id number] Neut Auto 38.7 % 0 Unknown COMPLETE BLOOD COUNT [id number] Lymph Auto 48.0 % 03/13/19 20 Unknown COMPLETE BLOOD COUNT [id number] [place] Auto 9.5 % 0 Unknown COMPLETE BLOOD COUNT [id number] Eos Auto 3.2 % 0 Unknown COMPLETE BLOOD COUNT [id number] RDW 13.5 % 0 Unknown COMPLETE BLOOD COUNT [id number] Baso Auto 0.6 % 0 Unknown COMPLETE BLOOD COUNT [id number] Neutrophil Abs 2.75 10e9/L Unknown COMPLETE BLOOD COUNT [id number] Lymphocyte Abs 3.41 10e9/L Unknown COMPLETE BLOOD COUNT [id number] Monocyte Abs 0.67 10e9/L 09/2019 Unknown COMPLETE BLOOD COUNT [id number] Eosinophil Abs 0.23 10e9/L Unknown COMPLETE BLOOD COUNT [id number] Basophil Abs 0.04 10e9/L 09/2019 Unknown COMPLETE BLOOD COUNT [id number] RDW-SD 44.7 fL 0 Unknown THYROID STIMULATING HORMONE 65152 TSH 1.677 uIU/mL 03/13/2019 Unknown COMPREHENSIVE METABOLIC 56494 AST 19 U/L 2019 Unknown COMPREHENSIVE METABOLIC 76467 ALT 12 U/L 2019 Unknown COMPREHENSIVE METABOLIC 67292 BUN 17 mg/dL 2019 Unknown COMPREHENSIVE METABOLIC 81941 ALBUMIN 4.2 g/dL 2019 Unknown COMPREHENSIVE METABOLIC 35084 CHLORIDE 103 mmol/L 03/13 Unknown COMPREHENSIVE METABOLIC 19533 Bili Total 0.2 mg/dL 03/13 Unknown COMPREHENSIVE METABOLIC 16612 ALK PHOS 61 U/L 2019 Unknown COMPREHENSIVE METABOLIC 65695 SODIUM 140 mmol/L 03/13 Unknown COMPREHENSIVE METABOLIC 42562 CREATININE 0.95 mg/dL 09/2019 Unknown COMPREHENSIVE METABOLIC 24405 CALCIUM 9.4 mg/dL 2019 Unknown COMPREHENSIVE METABOLIC 41086 POTASSIUM 4.2 mmol/L 03/13 Unknown COMPREHENSIVE METABOLIC 87974 Total Protein 6.5 g/dL Unknown COMPREHENSIVE METABOLIC 11741 Glucose 103 mg/dL 2019 Unknown COMPREHENSIVE METABOLIC 14598 Bicarbonate 26 mmol/L 09/2019 Unknown COMPREHENSIVE METABOLIC 98963 AGAP 11 mmol/L 2019 Unknown GFR CALC [id number] GFR Non Afr Amr 57 mL/min 03/13/2019 Unk nown GFR CALC [id number] GFR Afr Amr >60 mL/min 03/13/2019 Unknow n GFR CALC [id number] GFR Afr Amr >60 mL/min 12/15/2018 Unknow n GFR CALC 7889907 GFR Non Afr Amr 52 mL/min 12/15/2018 Unk nown COMPREHENSIVE METABOLIC 75556 AST 17 U/L 2018 Unknown COMPREHENSIVE METABOLIC 02984 ALT 11 U/L 2018 Unknown COMPREHENSIVE METABOLIC 32673 BUN 17 mg/dL 2018 Unknown COMPREHENSIVE METABOLIC 20774 ALBUMIN 3.9 g/dL 2018 Unknown COMPREHENSIVE METABOLIC 98516 CHLORIDE 108 mmol/L 12/15 Unknown COMPREHENSIVE METABOLIC 94080 Bili Total 0.5 mg/dL 12/15 Unknown COMPREHENSIVE METABOLIC 63500 ALK PHOS 72 U/L 2018 Unknown COMPREHENSIVE METABOLIC 88682 SODIUM 142 mmol/L 12/15 Unknown COMPREHENSIVE METABOLIC 96754 CREATININE 1.02 mg/dL 12/05 Unknown COMPREHENSIVE METABOLIC 65286 CALCIUM 9.3 mg/dL 2018 Unknown COMPREHENSIVE METABOLIC 97815 POTASSIUM 4.0 mmol/L 12/15 Unknown COMPREHENSIVE METABOLIC 11485 Total Protein 6.2 g/dL Unknown COMPREHENSIVE METABOLIC 80112 Glucose 93 mg/dL 2018 Unknown COMPREHENSIVE METABOLIC 32509 Bicarbonate 27 mmol/L 12/05 Unknown COMPREHENSIVE METABOLIC 45088 AGAP 7 mmol/L 2018 Unknown GFR CALC [id number] GFR Non Afr Amr 48 mL/min 08/14/2018 Unk nown GFR CALC [id number] GFR Afr Amr 59 mL/min 08/14/2018 Unknown THYROID STIMULATING HORMONE 37294 TSH 1.936 uIU/mL 08/14/2018 Unknown COMPREHENSIVE METABOLIC 41134 AST 18 U/L 2018 Unknown COMPREHENSIVE METABOLIC 81714 ALT 11 U/L 2018 Unknown COMPREHENSIVE METABOLIC 19434 BUN 18 mg/dL 2018 Unknown COMPREHENSIVE METABOLIC 80001 ALBUMIN 4.2 g/dL 2018 Unknown COMPREHENSIVE METABOLIC 70933 CHLORIDE 109 mmol/L 08/14 Unknown COMPREHENSIVE METABOLIC 82512 Bili Total 0.4 mg/dL 08/14 Unknown COMPREHENSIVE METABOLIC 73279 ALK PHOS 64 U/L 2018 Unknown COMPREHENSIVE METABOLIC 74058 SODIUM 142 mmol/L 08/14 Unknown COMPREHENSIVE METABOLIC 85025 CREATININE 1.09 mg/dL 08/05 Unknown COMPREHENSIVE METABOLIC 26473 CALCIUM 9.3 mg/dL 2018 Unknown COMPREHENSIVE METABOLIC 53263 POTASSIUM 4.7 mmol/L 08/14 Unknown COMPREHENSIVE METABOLIC 21169 Total Protein 6.3 g/dL Unknown COMPREHENSIVE METABOLIC 26186 Glucose 84 mg/dL 2018 Unknown COMPREHENSIVE METABOLIC 46253 Bicarbonate 25 mmol/L 08/05 Unknown COMPREHENSIVE METABOLIC 47489 AGAP 8 mmol/L 2018 Unknown COMPLETE BLOOD COUNT [id number] WBC 7.8 10e9/L 08/15/19 19 Unknown COMPLETE BLOOD COUNT [id number] RBC 4.04 10e12/L 2018 Unknown COMPLETE BLOOD COUNT [id number] HEMOGLOBIN 12.2 g/dL 08/15/19 19 Unknown COMPLETE BLOOD COUNT [id number] HEMATOCRIT 38.6 % 08/15/19 19 Unknown COMPLETE BLOOD COUNT [id number] MCV 95.5 fL 9 Unknown COMPLETE BLOOD COUNT [id number] MCH 30.2 pg 9 Unknown COMPLETE BLOOD COUNT [id number] MCHC 31.6 g/dL 9 Unknown COMPLETE BLOOD COUNT [id number] PLATELET COUNT 215 10e9/L 12/2018 Unknown COMPLETE BLOOD COUNT [id number] Mean Plt Volume 11.2 fL 12/2018 Unknown COMPLETE BLOOD COUNT [id number] Neut Auto 45.7 % 9 Unknown COMPLETE BLOOD COUNT [id number] Lymph Auto 42.1 % 08/15/19 19 Unknown COMPLETE BLOOD COUNT 7308229 [place] Auto 9.2 % 9 Unknown COMPLETE BLOOD COUNT [id number] RDW 13.4 % 9 Unknown COMPLETE BLOOD COUNT [id number] Eos Auto 2.7 % 9 Unknown COMPLETE BLOOD COUNT 5201324 Baso Auto 0.3 % 9 Unknown COMPLETE BLOOD COUNT [id number] Neutrophil Abs 3.56 10e9/L Unknown COMPLETE BLOOD COUNT [id number] Lymphocyte Abs 3.28 10e9/L Unknown COMPLETE BLOOD COUNT [id number] Monocyte Abs 0.72 10e9/L 08/05 Unknown COMPLETE BLOOD COUNT [id number] Eosinophil Abs 0.21 10e9/L Unknown COMPLETE BLOOD COUNT [id number] RDW-SD 44.9 fL 9 Unknown COMPLETE BLOOD COUNT [id number] Basophil Abs 0.02 10e9/L 08/05 Unknown COMPLETE BLOOD COUNT [id number] WBC 5.2 10e9/L 12/01/19 18 Unknown COMPLETE BLOOD COUNT [id number] RBC 4.21 10e12/L 2017 Unknown COMPLETE BLOOD COUNT [id number] HEMOGLOBIN 12.8 g/dL 12/01/19 18 Unknown COMPLETE BLOOD COUNT [id number] HEMATOCRIT 39.0 % 12/01/19 18 Unknown COMPLETE BLOOD COUNT [id number] MCV 92.6 fL 8 Unknown COMPLETE BLOOD COUNT [id number] MCH 30.4 pg 8 Unknown COMPLETE BLOOD COUNT [id number] MCHC 32.8 g/dL 8 Unknown COMPLETE BLOOD COUNT [id number] PLATELET COUNT 202 10e9/L Unknown COMPLETE BLOOD COUNT 4696972 Mean Plt Volume 10.7 fL Unknown COMPLETE BLOOD COUNT [id number] Neut Auto 40.9 % 8 Unknown COMPLETE BLOOD COUNT 1086099 Lymph Auto 46.3 % 12/01/19 18 Unknown COMPLETE BLOOD COUNT [id number] [place] Auto 9.3 % 8 Unknown COMPLETE BLOOD COUNT [id number] RDW 13.7 % 8 Unknown COMPLETE BLOOD COUNT 5951186 Eos Auto 2.9 % 8 Unknown COMPLETE BLOOD COUNT 5575001 Baso Auto 0.6 % 8 Unknown COMPLETE BLOOD COUNT [id number] Neutrophil Abs 2.13 10e9/L Unknown COMPLETE BLOOD COUNT [id number] Lymphocyte Abs 2.41 10e9/L Unknown COMPLETE BLOOD COUNT [id number] Monocyte Abs 0.48 10e9/L 11/06 Unknown COMPLETE BLOOD COUNT [id number] Eosinophil Abs 0.15 10e9/L Unknown COMPLETE BLOOD COUNT [id number] RDW-SD 45.2 fL 8 Unknown COMPLETE BLOOD COUNT [id number] Basophil Abs 0.03 10e9/L 11/06 [place] [address] Glucose 118 mg/dL 11/30 [place] [address] CREATININE 1.01 mg/dL [place] [address] BUN 14 mg/dL 11/30 [place] [address] SODIUM 141 mmol/L 11/06 [place] [address] POTASSIUM 4.0 mmol/L 11/06 [place] [address] CHLORIDE 108 mmol/L 11/06 [place] [address] Bicarbonate 25 mmol/L [place] [address] AGAP 8 mmol/L 11/30 [place] [address] CALCIUM 9.6 mg/dL 11/30 Unknown FREE T4 78331 T4 Free 1.23 ng/dL 11/30/2017 Unknown GFR CALC [id number] GFR Afr Amr >60 mL/min 11/30/2017 Unknow n GFR CALC [id number] GFR Non Afr Amr 53 mL/min 11/30/2017 Unk nown THYROID STIMULATING HORMONE 43687 TSH 2.124 uIU/mL 11/30/2017 Unknown LIPID GROUP 12472 Cholesterol 152 mg/dL 09/28/2017 Unkno wn LIPID GROUP 11771 Triglyceride 151 mg/dL 09/28/2017 Unkn own LIPID GROUP 39104 HDL CHOLESTEROL 47 mg/dL 09/28/2017 U nknown LIPID GROUP 40813 Chol/HDL Ratio 3.23 ratio 09/28/2017 U nknown LIPID GROUP 82724 NON-HDL Chol 105 mg/dL 09/28/2017 Unkn own LIPID GROUP 93263 LDL Cholesterol 75 mg/dL 09/28/2017 U nknown ASSAY OF TROPONIN QUANT 86338 Troponin-I <0.30 ng/mL Unknown COMPREHENSIVE METABOLIC 49118 AST 20 U/L 2017 Unknown COMPREHENSIVE METABOLIC 39157 ALT 14 U/L 2017 Unknown COMPREHENSIVE METABOLIC 59162 BUN 19 mg/dL 2017 Unknown COMPREHENSIVE METABOLIC 69198 ALBUMIN 4.2 g/dL 2017 Unknown COMPREHENSIVE METABOLIC 36846 CHLORIDE 102 mmol/L 09/27 Unknown COMPREHENSIVE METABOLIC 42982 Bili Total 0.4 mg/dL 09/27 Unknown COMPREHENSIVE METABOLIC [address] ALK PHOS 66 U/L 2017 Unknown COMPREHENSIVE METABOLIC 69302 SODIUM 135 mmol/L 09/27 Unknown COMPREHENSIVE METABOLIC 14269 CREATININE 1.01 mg/dL 09/05 Unknown COMPREHENSIVE METABOLIC 22831 CALCIUM 9.3 mg/dL 2017 Unknown COMPREHENSIVE METABOLIC 57359 POTASSIUM 4.8 mmol/L 09/27 Unknown COMPREHENSIVE METABOLIC 20444 Total Protein 7.0 g/dL Unknown COMPREHENSIVE METABOLIC 21119 Glucose 91 mg/dL 2017 Unknown COMPREHENSIVE METABOLIC 10071 Bicarbonate 23 mmol/L 09/05 Unknown COMPREHENSIVE METABOLIC 38276 AGAP 10 mmol/L 2017 Unknown COMPLETE BLOOD COUNT [id number] WBC 7.5 10e9/L 09/28/19 18 Unknown COMPLETE BLOOD COUNT [id number] RBC 4.13 10e12/L 2017 Unknown COMPLETE BLOOD COUNT [id number] HEMOGLOBIN 12.6 g/dL 09/28/19 18 Unknown COMPLETE BLOOD COUNT 2404098 HEMATOCRIT 38.4 % 09/28/19 18 Unknown COMPLETE BLOOD COUNT 7700037 MCV 93.0 fL 8 Unknown COMPLETE BLOOD COUNT 0347192 MCH 30.5 pg 8 Unknown COMPLETE BLOOD COUNT 6583718 MCHC 32.8 g/dL 8 Unknown COMPLETE BLOOD COUNT 3782336 PLATELET COUNT 204 10e9/L Unknown COMPLETE BLOOD COUNT 4478659 Mean Plt Volume 10.9 fL Unknown COMPLETE BLOOD COUNT 3497948 Neut Auto 43.1 % 8 Unknown COMPLETE BLOOD COUNT 2540545 Lymph Auto 45.0 % 09/28/19 18 Unknown COMPLETE BLOOD COUNT 2005411 [place] Auto 9.2 % 8 Unknown COMPLETE BLOOD COUNT 4960186 RDW 13.4 % 8 Unknown COMPLETE BLOOD COUNT 8998193 Eos Auto 2.3 % 8 Unknown COMPLETE BLOOD COUNT 0294828 Baso Auto 0.4 % 8 Unknown COMPLETE BLOOD COUNT 4722931 Neutrophil Abs 3.23 10e9/L Unknown COMPLETE BLOOD COUNT 5094851 Lymphocyte Abs 3.38 10e9/L Unknown COMPLETE BLOOD COUNT 7069596 Monocyte Abs 0.69 10e9/L 09/05 Unknown COMPLETE BLOOD COUNT 3436867 Eosinophil Abs 0.17 10e9/L Unknown COMPLETE BLOOD COUNT [id number] RDW-SD 44.4 fL 8 Unknown COMPLETE BLOOD COUNT [id number] Basophil Abs 0.03 10e9/L 09/05 Unknown GFR CALC 2317434 GFR Non Afr Amr 53 mL/min 09/27/2017 Unk nown GFR CALC 8150543 GFR Afr Amr >60 mL/min 09/27/2017 Unknow n GLYCOSYLATED HEMOGLOBIN TEST 19488 Hgb A1c 69606-1 5.4 % 0 09/27/2017 Unknown MEAN GLUC 3976842 Calc Mean Gluc 108 mg/dL 09/27/2017 Unkn own MEAN GLUC 7459971 Calc Mean Gluc 114 mg/dL 11/01/2016 Unkn own LIPID GROUP 39104 Cholesterol 146 mg/dL 11/01/2016 Unkno wn LIPID GROUP 81364 Triglyceride 119 mg/dL 11/01/2016 Unkn own LIPID GROUP 38212 HDL CHOLESTEROL 47 mg/dL 11/01/2016 U nknown LIPID GROUP 59660 Chol/HDL Ratio 3.11 ratio 11/01/2016 U nknown LIPID GROUP 84755 NON-HDL Chol 99 mg/dL 11/01/2016 Unkn own LIPID GROUP 79887 LDL Cholesterol 75 mg/dL 11/01/2016 U nknown GLYCOSYLATED HEMOGLOBIN TEST 02980 Hgb A1c 81557-5 5.6 % 0 11/01/2016 Unknown COMPREHENSIVE METABOLIC 86114 AST 22 U/L 2016 Unknown COMPREHENSIVE METABOLIC 01737 ALT 12 U/L 2016 Unknown COMPREHENSIVE METABOLIC 23166 BUN 17 mg/dL 2016 Unknown COMPREHENSIVE METABOLIC 29571 ALBUMIN 4.0 g/dL 2016 Unknown COMPREHENSIVE METABOLIC 41815 CHLORIDE 110 mmol/L 11/01 Unknown COMPREHENSIVE METABOLIC 76128 Bili Total 0.4 mg/dL 11/01 Unknown COMPREHENSIVE METABOLIC 49926 ALK PHOS 63 U/L 2016 Unknown COMPREHENSIVE METABOLIC 38664 SODIUM 140 mmol/L 11/01 Unknown COMPREHENSIVE METABOLIC 62961 CREATININE 1.05 mg/dL 10/06 Unknown COMPREHENSIVE METABOLIC 07020 CALCIUM 9.2 mg/dL 2016 Unknown COMPREHENSIVE METABOLIC 29944 POTASSIUM 4.2 mmol/L 11/01 Unknown COMPREHENSIVE METABOLIC 34802 Total Protein 6.2 g/dL Unknown COMPREHENSIVE METABOLIC 88653 Glucose 87 mg/dL 2016 Unknown COMPREHENSIVE METABOLIC 15283 Bicarbonate 24 mmol/L 10/06 Unknown COMPREHENSIVE METABOLIC 67518 AGAP 6 mmol/L 2016 Unknown GFR CALC 8331102 GFR Non Afr Amr 51 mL/min 11/01/2016 Unk nown GFR CALC 6199562 GFR Afr Amr >60 mL/min 11/01/2016 Unknow n COMPLETE BLOOD COUNT 7340230 WBC 6.7 10e9/L 11/02/19 17 Unknown COMPLETE BLOOD COUNT 5216102 RBC 4.04 10e12/L 2016 Unknown COMPLETE BLOOD COUNT 8131673 HEMOGLOBIN 12.1 g/dL 11/02/19 17 Unknown COMPLETE BLOOD COUNT 7330281 HEMATOCRIT 38.0 % 11/02/19 17 Unknown COMPLETE BLOOD COUNT 9184530 MCV 94.1 fL 7 Unknown COMPLETE BLOOD COUNT 4765883 MCH 30.0 pg 7 Unknown COMPLETE BLOOD COUNT 7967621 MCHC 31.8 g/dL 7 Unknown COMPLETE BLOOD COUNT 1871196 PLATELET COUNT 206 10e9/L Unknown COMPLETE BLOOD COUNT 7108644 Mean Plt Volume 11.3 fL Unknown COMPLETE BLOOD COUNT 3348570 Neut Auto 35.8 % 7 Unknown COMPLETE BLOOD COUNT 5862902 Lymph Auto 51.6 % 11/02/19 17 Unknown COMPLETE BLOOD COUNT 0532870 [place] Auto 8.8 % 7 Unknown COMPLETE BLOOD COUNT 7295235 Eos Auto 3.4 % 7 Unknown COMPLETE BLOOD COUNT 7756415 RDW 13.5 % 7 Unknown COMPLETE BLOOD COUNT 7097218 Baso Auto 0.4 % 7 Unknown COMPLETE BLOOD COUNT 9063553 Neutrophil Abs 2.40 10e9/L Unknown COMPLETE BLOOD COUNT 1992368 Lymphocyte Abs 3.46 10e9/L Unknown COMPLETE BLOOD COUNT 7363472 Monocyte Abs 0.59 10e9/L 10/06 Unknown COMPLETE BLOOD COUNT 1550146 Eosinophil Abs 0.23 10e9/L Unknown COMPLETE BLOOD COUNT 4857997 RDW-SD 45.3 fL 7 Unknown COMPLETE BLOOD COUNT 6372713 Basophil Abs 0.03 10e9/L 10/06 Unknown THYROID STIMULATING HORMONE 92167 TSH 1.981 uIU/mL 11/01/2016 Unknown COMPLETE BLOOD COUNT 2690137 WBC 6.0 10e9/L 05/14/19 17 Unknown COMPLETE BLOOD COUNT 0810769 RBC 4.29 10e12/L 2016 Unknown COMPLETE BLOOD COUNT 4794727 HEMOGLOBIN 12.9 g/dL 05/14/19 17 Unknown COMPLETE BLOOD COUNT 8913535 HEMATOCRIT 38.4 % 05/14/19 17 Unknown COMPLETE BLOOD COUNT 1506652 MCV 89.5 fL 7 Unknown COMPLETE BLOOD COUNT 0223429 MCH 30.1 pg 7 Unknown COMPLETE BLOOD COUNT 4733257 MCHC 33.6 g/dL 7 Unknown COMPLETE BLOOD COUNT 2705892 PLATELET COUNT 181 10e9/L 11/2016 Unknown COMPLETE BLOOD COUNT 3435714 Mean Plt Volume 11.7 fL 11/2016 Unknown COMPLETE BLOOD COUNT 5645679 Neut Auto 36.9 % 7 Unknown COMPLETE BLOOD COUNT 3412926 Lymph Auto 50.4 % 05/14/19 17 Unknown COMPLETE BLOOD COUNT 5094085 [place] Auto 9.0 % 7 Unknown COMPLETE BLOOD COUNT 9065865 RDW 13.7 % 7 Unknown COMPLETE BLOOD COUNT 1762664 Eos Auto 3.4 % 7 Unknown COMPLETE BLOOD COUNT 0293812 Baso Auto 0.3 % 7 Unknown COMPLETE BLOOD COUNT 8364622 Neutrophil Abs 2.21 10e9/L Unknown COMPLETE BLOOD COUNT 9278934 Lymphocyte Abs 3.02 10e9/L Unknown COMPLETE BLOOD COUNT 8791088 Monocyte Abs 0.54 10e9/L 11/2016 Unknown COMPLETE BLOOD COUNT 7987194 Eosinophil Abs 0.20 10e9/L Unknown COMPLETE BLOOD COUNT 7463913 Basophil Abs 0.02 10e9/L 11/2016 Unknown COMPLETE BLOOD COUNT 9652219 RDW-SD 44.0 fL 7 Unknown GLYCOSYLATED HEMOGLOBIN TEST 86069 Hgb A1c 40228-8 5.4 % 0 05/13/2016 Unknown THYROID STIMULATING HORMONE 16413 TSH 2.200 uIU/mL 05/13/2016 Unknown GFR CALC 8320720 GFR Afr Amr >60 mL/min 05/13/2016 Unknow n GFR CALC 0373756 GFR Non Afr Amr 50 mL/min 05/13/2016 Unk nown MEAN GLUC 9765942 Calc Mean Gluc 108 mg/dL 05/13/2016 Unkn own COMPREHENSIVE METABOLIC 99776 AST 18 U/L 2016 Unknown COMPREHENSIVE METABOLIC 85378 ALT 10 U/L 2016 Unknown COMPREHENSIVE METABOLIC 13284 BUN 20 mg/dL 2016 Unknown COMPREHENSIVE METABOLIC 94889 ALBUMIN 4.1 g/dL 2016 Unknown COMPREHENSIVE METABOLIC 67076 CHLORIDE 109 mmol/L 05/13 Unknown COMPREHENSIVE METABOLIC 89108 Bili Total 0.6 mg/dL 05/13 Unknown COMPREHENSIVE METABOLIC 94910 ALK PHOS 64 U/L 2016 Unknown COMPREHENSIVE METABOLIC 62751 SODIUM 141 mmol/L 05/13 Unknown COMPREHENSIVE METABOLIC 48226 CREATININE 1.06 mg/dL 11/2016 Unknown COMPREHENSIVE METABOLIC 90368 CALCIUM 9.9 mg/dL 2016 Unknown COMPREHENSIVE METABOLIC 99460 POTASSIUM 4.2 mmol/L 05/13 Unknown COMPREHENSIVE METABOLIC 41798 Total Protein 6.3 g/dL Unknown COMPREHENSIVE METABOLIC 90471 Glucose 99 mg/dL 2016 Unknown COMPREHENSIVE METABOLIC 92238 Bicarbonate 21 mmol/L 11/2016 Unknown COMPREHENSIVE METABOLIC 75459 AGAP 11 mmol/L 2016 Unknown LIPID GROUP 34151 Cholesterol 169 mg/dL 11/25/2015 Unkno wn LIPID GROUP 49820 Triglyceride 165 mg/dL 11/25/2015 Unkn own LIPID GROUP 77462 HDL CHOLESTEROL 43 mg/dL 11/25/2015 U nknown LIPID GROUP 15675 Chol/HDL Ratio 3.93 ratio 11/25/2015 U nknown LIPID GROUP 27394 NON-HDL Chol 126 mg/dL 11/25/2015 Unkn own LIPID GROUP 65914 LDL Cholesterol 93 mg/dL 11/25/2015 U nknown COMPREHENSIVE METABOLIC 96353 AST 18 U/L 2015 Unknown COMPREHENSIVE METABOLIC 50272 ALT 10 U/L 2015 Unknown COMPREHENSIVE METABOLIC 26807 BUN 20 mg/dL 2015 Unknown COMPREHENSIVE METABOLIC 72031 ALBUMIN 3.9 g/dL 2015 Unknown COMPREHENSIVE METABOLIC 19159 CHLORIDE 110 mmol/L 11/24 Unknown COMPREHENSIVE METABOLIC 44732 Bili Total 0.5 mg/dL 11/24 Unknown COMPREHENSIVE METABOLIC 35955 ALK PHOS 72 U/L 2015 Unknown COMPREHENSIVE METABOLIC 48018 SODIUM 141 mmol/L 11/24 Unknown COMPREHENSIVE METABOLIC 55886 CREATININE 1.12 mg/dL 11/06 Unknown COMPREHENSIVE METABOLIC 74933 CALCIUM 9.7 mg/dL 2015 Unknown COMPREHENSIVE METABOLIC 29039 POTASSIUM 4.4 mmol/L 11/24 Unknown COMPREHENSIVE METABOLIC 61480 Total Protein 6.2 g/dL Unknown COMPREHENSIVE METABOLIC 11669 Glucose 90 mg/dL 2015 Unknown COMPREHENSIVE METABOLIC 55796 Bicarbonate 23 mmol/L 11/06 Unknown COMPREHENSIVE METABOLIC 98205 AGAP 8 mmol/L 2015 Unknown GFR CALC 9934675 GFR Non Afr Amr 47 mL/min 11/25/2015 Unk nown GFR CALC 5780586 GFR Afr Amr 57 mL/min 11/25/2015 Unknown GLYCOSYLATED HEMOGLOBIN TEST 72771 Hgb A1c 14725-9 5.5 % 0 11/25/2015 Unknown THYROID STIMULATING HORMONE 60020 TSH 2.537 uIU/mL 11/25/2015 Unknown FREE T4 27360 T4 Free 1.36 ng/dL 11/25/2015 Unknown COMPLETE BLOOD COUNT 2274392 WBC 6.8 10e9/L 11/25/19 16 Unknown COMPLETE BLOOD COUNT 2444880 RBC 4.20 10e12/L 2015 Unknown COMPLETE BLOOD COUNT 5709969 HEMOGLOBIN 12.5 g/dL 11/25/19 16 Unknown COMPLETE BLOOD COUNT 0322111 HEMATOCRIT 38.0 % 11/25/19 16 Unknown COMPLETE BLOOD COUNT 1147230 MCV 90.5 fL 6 Unknown COMPLETE BLOOD COUNT 0438808 MCH 29.8 pg 6 Unknown COMPLETE BLOOD COUNT 4374175 MCHC 32.9 g/dL 6 Unknown COMPLETE BLOOD COUNT 1560384 PLATELET COUNT 197 10e9/L Unknown COMPLETE BLOOD COUNT 2336068 Mean Plt Volume 11.7 fL Unknown COMPLETE BLOOD COUNT 8086032 Neut Auto 41.3 % 6 Unknown COMPLETE BLOOD COUNT 1976109 Lymph Auto 47.1 % 11/25/19 16 Unknown COMPLETE BLOOD COUNT 3942981 [place] Auto 7.8 % 6 Unknown COMPLETE BLOOD COUNT 6036619 Eos Auto 3.4 % 6 Unknown COMPLETE BLOOD COUNT 3258000 RDW 13.8 % 6 Unknown COMPLETE BLOOD COUNT 2671889 Baso Auto 0.4 % 6 Unknown COMPLETE BLOOD COUNT 4599358 Neutrophil Abs 2.81 10e9/L Unknown COMPLETE BLOOD COUNT 5019050 Lymphocyte Abs 3.20 10e9/L Unknown COMPLETE BLOOD COUNT 6716029 Monocyte Abs 0.53 10e9/L 11/06 Unknown COMPLETE BLOOD COUNT 6553922 Eosinophil Abs 0.23 10e9/L Unknown COMPLETE BLOOD COUNT 3622890 Basophil Abs 0.03 10e9/L 11/06 Unknown COMPLETE BLOOD COUNT 7795009 RDW-SD 44.4 fL 6 Unknown MEAN GLUC 5096387 Calc Mean Gluc 111 mg/dL 11/25/2015 [place] [address] Glucose 89 MG/DL 02/19 [place] [address] CREATININE 1.12 MG/DL [place] [address] BUN 20 MG/DL 02/19 [place] [address] SODIUM 139 MMOL/L 02/04 [place] [address] POTASSIUM 4.6 MMOL/L 02/04 [place] [address] CHLORIDE 108 MMOL/L 02/04 [place] [address] BICARB 26 MMOL/L 02/19 [place] [address] ANION GAP 5 MEQ/L 02/19 [place] [address] CALCIUM 10.0 MG/DL 02/04 Unknown GFR CALC 8886623 GFR AA 57.0L ML/MIN 02/19/2015 Unknow n GFR CALC 9857398 GFR NON-AA 47.0L ML/MIN 02/19/2015 Unkno wn THYROID STIMULATING HORMONE 36179 TSH 2.378 uIU/ML 11/14/2014 Unknown COMPLETE BLOOD COUNT 4098608 WBC 6.4 10e9/L 11/15/19 15 Unknown COMPLETE BLOOD COUNT 6984386 RBC 3.99 10e12/L 2014 Unknown COMPLETE BLOOD COUNT 6761407 HGB 11.9 g/dL 5 Unknown COMPLETE BLOOD COUNT 3495559 HCT DET 36.9 % 5 Unknown COMPLETE BLOOD COUNT 2292045 MCV 92.5 fL 5 Unknown COMPLETE BLOOD COUNT 5615030 MCH 29.8 pg 5 Unknown COMPLETE BLOOD COUNT 0463956 MCHC 32.2 g/dL 5 Unknown COMPLETE BLOOD COUNT 6549973 PLT 172 10e9/L 11/15/19 15 Unknown COMPLETE BLOOD COUNT 1481917 MPV 11.7 fL 5 Unknown COMPLETE BLOOD COUNT 9919741 CINTH[place] % 40.4 % 5 Unknown COMPLETE BLOOD COUNT 3367927 LY % 48.0 % 5 Unknown COMPLETE BLOOD COUNT 5051796 MON % 8.3 % 5 Unknown COMPLETE BLOOD COUNT 2874336 EOS % 2.8 % 5 Unknown COMPLETE BLOOD COUNT 1891379 BASO % 0.5 % 5 Unknown COMPLETE BLOOD COUNT 3986390 RDW 13.6 % 5 Unknown COMPLETE BLOOD COUNT 8028400 ABS CINTHYA 2.59 10e9/L 015 Unknown COMPLETE BLOOD COUNT 2181978 ABS LYMPH 3.07 10e9/L 015 Unknown COMPLETE BLOOD COUNT 6538107 ABS MONO 0.53 10e9/L 015 Unknown COMPLETE BLOOD COUNT 6473459 ABS EOS 0.18 10e9/L 015 Unknown COMPLETE BLOOD COUNT 8533790 ABS BASO 0.03 10e9/L 015 Unknown COMPLETE BLOOD COUNT 6082454 RDW-SD 44.9 fL 5 Unknown LIPID GROUP 73803 HDL TEST 42 MG/DL 11/14/2014 Unknown LIPID GROUP 46059 TRIG 177 MG/DL 11/14/2014 Unknown LIPID GROUP 17388 TEST LDL 72 MG/DL 11/14/2014 Unknown LIPID GROUP 81392 CHOL 149 MG/DL 11/14/2014 Unknown LIPID GROUP 65110 RCHOL/HDL 3.55 RATIO 11/14/2014 Unknow n LIPID GROUP 49390 NON-HDL CH 107 MG/DL 11/14/2014 Unknow n GLYCOSYLATED HEMOGLOBIN TEST 12640 A1C HPLC 62098-0 5.5 % 0 11/14/2014 Unknown FREE T4 26699 FREE T4 1.39 NG/DL 11/14/2014 Unknown GFR CALC 4426464 GFR AA 55.0L ML/MIN 11/14/2014 Unknow n GFR CALC 2290787 GFR NON-AA 46.0L ML/MIN 11/14/2014 Unkno wn COMPREHENSIVE METABOLIC 95993 AST 17 U/L 2014 Unknown COMPREHENSIVE METABOLIC 97998 ALT 10 IU/L 2014 Unknown COMPREHENSIVE METABOLIC 71176 BUN 20 MG/DL 2014 Unknown COMPREHENSIVE METABOLIC 26477 ALBUMIN 3.9 GM/DL 2014 Unknown COMPREHENSIVE METABOLIC 65481 CHLORIDE 111 MMOL/L 11/14 Unknown COMPREHENSIVE METABOLIC 99668 BILI TOT 0.4 MG/DL 2014 Unknown COMPREHENSIVE METABOLIC 81058 ALK PHOS 70 U/L 2014 Unknown COMPREHENSIVE METABOLIC 60651 SODIUM 142 MMOL/L 11/14 Unknown COMPREHENSIVE METABOLIC 73394 CREATININE 1.16 MG/DL 11/05 Unknown COMPREHENSIVE METABOLIC 04168 CALCIUM 9.4 MG/DL 2014 Unknown COMPREHENSIVE METABOLIC 20679 POTASSIUM 4.6 MMOL/L 11/14 Unknown COMPREHENSIVE METABOLIC 09284 PROT TOT 6.2 GM/DL 2014 Unknown COMPREHENSIVE METABOLIC 83300 Glucose 90 MG/DL 2014 Unknown COMPREHENSIVE METABOLIC 09813 BICARB 24 MMOL/L 2014 Unknown COMPREHENSIVE METABOLIC 08356 ANION GAP 7 MEQ/L 2014 Unknown THYROID STIMULATING HORMONE 41041 TSH 2.427 uIU/ML 05/10/2014 Unknown LIPID GROUP 14261 HDL TEST 47 MG/DL 05/10/2014 Unknown LIPID GROUP 63193 TRIG 145 MG/DL 05/10/2014 Unknown LIPID GROUP 54213 TEST LDL 73 MG/DL 05/10/2014 Unknown LIPID GROUP 82701 CHOL 149 MG/DL 05/10/2014 Unknown LIPID GROUP 34486 RCHOL/HDL 3.17 RATIO 05/10/2014 Unknow n LIPID GROUP 51068 NON-HDL CH 102 MG/DL 05/10/2014 Unknow n COMPREHENSIVE METABOLIC 78398 AST 17 U/L 2014 Unknown COMPREHENSIVE METABOLIC 12904 ALT 9 IU/L 2014 Unknown COMPREHENSIVE METABOLIC 58538 BUN 19 MG/DL 2014 Unknown COMPREHENSIVE METABOLIC 23119 ALBUMIN 4.3 GM/DL 2014 Unknown COMPREHENSIVE METABOLIC 36709 CHLORIDE 108 MMOL/L 05/10 Unknown COMPREHENSIVE METABOLIC 20280 BILI TOT 0.5 MG/DL 2014 Unknown COMPREHENSIVE METABOLIC 06576 ALK PHOS 68 U/L 2014 Unknown COMPREHENSIVE METABOLIC 00965 SODIUM 140 MMOL/L 05/10 Unknown COMPREHENSIVE METABOLIC 13715 CREATININE 1.08 MG/DL 08/2014 Unknown COMPREHENSIVE METABOLIC 23563 CALCIUM 9.9 MG/DL 2014 Unknown COMPREHENSIVE METABOLIC 94477 POTASSIUM 4.3 MMOL/L 05/10 Unknown COMPREHENSIVE METABOLIC 85997 PROT TOT 7.2 GM/DL 2014 Unknown COMPREHENSIVE METABOLIC 48650 Glucose 94 MG/DL 2014 Unknown COMPREHENSIVE METABOLIC 93517 BICARB 26 MMOL/L 2014 Unknown COMPREHENSIVE METABOLIC 65078 ANION GAP 6 MEQ/L 2014 Unknown GFR CALC 7518913 GFR AA 60.0L ML/MIN 05/10/2014 Unknow n GFR CALC 7813467 GFR NON-AA 49.0L ML/MIN 05/10/2014 Unkno wn GLYCOSYLATED HEMOGLOBIN TEST 30963 A1C HPLC 87912-4 5.6 % 0 05/10/2014 Unknown COMPLETE BLOOD COUNT 3477015 WBC 7.2 10e9/L 05/11/19 15 Unknown COMPLETE BLOOD COUNT 2318609 RBC 4.28 10e12/L 2014 Unknown COMPLETE BLOOD COUNT 5401440 HGB 12.8 g/dL 5 Unknown COMPLETE BLOOD COUNT 6482590 HCT DET 39.3 % 5 Unknown COMPLETE BLOOD COUNT 4854509 MCV 91.8 fL 5 Unknown COMPLETE BLOOD COUNT 0870094 MCH 29.9 pg 5 Unknown COMPLETE BLOOD COUNT 4659148 MCHC 32.6 g/dL 5 Unknown COMPLETE BLOOD COUNT 5921038 PLT 189 10e9/L 05/11/19 15 Unknown COMPLETE BLOOD COUNT 9827689 MPV 11.2 fL 5 Unknown COMPLETE BLOOD COUNT 0934025 CINTHYA % 38.0 % 5 Unknown COMPLETE BLOOD COUNT 0837406 LY % 51.0 % 5 Unknown COMPLETE BLOOD COUNT 3652238 MON % 7.7 % 5 Unknown COMPLETE BLOOD COUNT 4755183 EOS % 2.9 % 5 Unknown COMPLETE BLOOD COUNT 3798806 BASO % 0.4 % 5 Unknown COMPLETE BLOOD COUNT 3454120 RDW 14.0 % 5 Unknown COMPLETE BLOOD COUNT 5827605 ABS CINTHYA 2.74 10e9/L 015 Unknown COMPLETE BLOOD COUNT 2854368 ABS LYMPH 3.67 10e9/L 015 Unknown COMPLETE BLOOD COUNT 8256536 ABS MONO 0.55 10e9/L 015 Unknown COMPLETE BLOOD COUNT 5790442 ABS EOS 0.21 10e9/L 015 Unknown COMPLETE BLOOD COUNT 1981956 ABS BASO 0.03 10e9/L 015 Unknown COMPLETE BLOOD COUNT 6694270 RDW-SD 46.1 fL 5 Unknown FREE T4 85553 FREE T4 1.14 NG/DL 05/10/2014 Unknown GLYCOSYLATED HEMOGLOBIN TEST 19368 A1C HPLC 52846-0 5.2 % 0 03/29/2013 Unknown FREE T4 87392 FREE T4 1.40 NG/DL 03/28/2013 Unknown GFR CALC 0772765 GFR AA >60 ML/MIN 03/28/2013 Unknown GFR CALC 2867439 GFR NON-AA 52.0L ML/MIN 03/28/2013 Unkno wn COMPREHENSIVE METABOLIC 16787 AST 15 U/L 2013 Unknown COMPREHENSIVE METABOLIC 70746 ALT 9 IU/L 2013 Unknown COMPREHENSIVE METABOLIC 24726 BUN 17 MG/DL 2013 Unknown COMPREHENSIVE METABOLIC 41551 ALBUMIN 4.0 GM/DL 2013 Unknown COMPREHENSIVE METABOLIC 44219 CHLORIDE 112 MMOL/L 03/28 Unknown COMPREHENSIVE METABOLIC 06211 BILI TOT 0.5 MG/DL 2013 Unknown COMPREHENSIVE METABOLIC 08243 ALK PHOS 66 U/L 2013 Unknown COMPREHENSIVE METABOLIC 91081 SODIUM 140 MMOL/L 03/28 Unknown COMPREHENSIVE METABOLIC 89890 CREATININE 1.03 MG/DL 03/08 Unknown COMPREHENSIVE METABOLIC 33779 CALCIUM 9.5 MG/DL 2013 Unknown COMPREHENSIVE METABOLIC 44172 POTASSIUM 4.1 MMOL/L 03/28 Unknown COMPREHENSIVE METABOLIC 83179 PROT TOT 6.2 GM/DL 2013 Unknown COMPREHENSIVE METABOLIC 48058 Glucose 102 MG/DL 2013 Unknown COMPREHENSIVE METABOLIC 62082 BICARB 23 MMOL/L 2013 Unknown COMPREHENSIVE METABOLIC 88265 ANION GAP 5 MEQ/L 2013 Unknown THYROID STIMULATING HORMONE 97450 TSH 2.074 uIU/ML 03/28/2013 Unknown VITAMIN B 12 FOLIC ACID 15730|51778 VIT B 12 423 PG/ML 03/08 Unknown VITAMIN B 12 FOLIC ACID 22541|36035 FOLIC ACID 19.7 NG/ML Unknown LIPID GROUP 37154 HDL TEST 40 MG/DL 03/28/2013 Unknown LIPID GROUP 23636 TRIG 145 MG/DL 03/28/2013 Unknown LIPID GROUP 84672 TEST LDL 81 MG/DL 03/28/2013 Unknown LIPID GROUP 92271 CHOL 150 MG/DL 03/28/2013 Unknown LIPID GROUP 41556 RCHOL/HDL 3.75 RATIO 03/28/2013 Unknow n COMPLETE BLOOD COUNT 7432548 WBC 6.0 10e9/L 03/28/19 14 Unknown COMPLETE BLOOD COUNT 9794310 RBC 4.26 10e12/L 2013 Unknown COMPLETE BLOOD COUNT 0767684 HGB 12.7 g/dL 4 Unknown COMPLETE BLOOD COUNT 2219840 HCT DET 38.7 % 4 Unknown COMPLETE BLOOD COUNT 0579920 MCV 90.8 fL 4 Unknown COMPLETE BLOOD COUNT 9597485 MCH 29.8 pg 4 Unknown COMPLETE BLOOD COUNT 3571327 MCHC 32.8 g/dL 4 Unknown COMPLETE BLOOD COUNT 4956244 PLT 178 10e9/L 03/28/19 14 Unknown COMPLETE BLOOD COUNT 4120517 MPV 11.7 fL 4 Unknown COMPLETE BLOOD COUNT 0504794 CINTHYA % 30.5 % 4 Unknown COMPLETE BLOOD COUNT 4987134 LY % 55.4 % 4 Unknown COMPLETE BLOOD COUNT 2163483 MON % 9.0 % 4 Unknown COMPLETE BLOOD COUNT 1438117 EOS % 4.4 % 4 Unknown COMPLETE BLOOD COUNT 2083230 BASO % 0.7 % 4 Unknown COMPLETE BLOOD COUNT 6740405 RDW 13.3 % 4 Unknown COMPLETE BLOOD COUNT 3492933 ABS CINTHYA 1.83 10e9/L 014 Unknown COMPLETE BLOOD COUNT 3870859 ABS LYMPH 3.32 10e9/L 014 Unknown COMPLETE BLOOD COUNT 6385085 ABS MONO 0.54 10e9/L 014 Unknown COMPLETE BLOOD COUNT 4021408 ABS EOS 0.26 10e9/L 014 Unknown COMPLETE BLOOD COUNT 2283742 ABS BASO 0.04 10e9/L 014 Unknown COMPLETE BLOOD COUNT 8948459 RDW-SD 43.2 fL 4 Unknown HEMOGLOBIN A1C (GLYCOSYLATED) 1383327 A1C HPLC 19409-4 5.5 % 02/24/2012 Unknown COMPLETE BLOOD COUNT 9072443 WBC 6.0 10e9/L 02/23/20 12 Unknown COMPLETE BLOOD COUNT 7420863 RBC 4.22 10e12/L 2011 Unknown COMPLETE BLOOD COUNT 5006592 HGB 12.4 g/dL 2 Unknown COMPLETE BLOOD COUNT 7120046 HCT DET 38.2 % 2 Unknown COMPLETE BLOOD COUNT 1699587 MCV 90.5 fL 2 Unknown COMPLETE BLOOD COUNT 6913922 MCH 29.4 pg 2 Unknown COMPLETE BLOOD COUNT 8795877 MCHC 32.5 g/dL 2 Unknown COMPLETE BLOOD COUNT 9948492 PLT 187 10e9/L 02/23/20 12 Unknown COMPLETE BLOOD COUNT 7020398 MPV 11.5 fL 2 Unknown COMPLETE BLOOD COUNT 7397688 CINTHYA % 36.4 % 2 Unknown COMPLETE BLOOD COUNT 3589205 LY % 51.0 % 2 Unknown COMPLETE BLOOD COUNT 0421743 MON % 8.7 % 2 Unknown COMPLETE BLOOD COUNT 4531624 EOS % 3.2 % 2 Unknown COMPLETE BLOOD COUNT 0739102 BASO % 0.7 % 2 Unknown COMPLETE BLOOD COUNT 5707341 RDW 13.7 % 2 Unknown COMPLETE BLOOD COUNT 0373145 ABS CINTHYA 2.18 10e9/L 012 Unknown COMPLETE BLOOD COUNT 4189301 ABS LYMPH 3.06 10e9/L 012 Unknown COMPLETE BLOOD COUNT 0544353 ABS MONO 0.52 10e9/L 012 Unknown COMPLETE BLOOD COUNT 7986262 ABS EOS 0.19 10e9/L 012 Unknown COMPLETE BLOOD COUNT 8562411 ABS BASO 0.04 10e9/L 012 Unknown COMPLETE BLOOD COUNT 0325399 RDW-SD 44.3 fL 2 Unknown LIPID GROUP 06085 HDL TEST 42 MG/DL 02/23/2012 Unknown LIPID GROUP 29668 TRIG 156 MG/DL 02/23/2012 Unknown LIPID GROUP 29470 TEST LDL 80 MG/DL 02/23/2012 Unknown LIPID GROUP 43208 CHOL 153 MG/DL 02/23/2012 Unknown LIPID GROUP 50507 RCHOL/HDL 3.64 RATIO 02/23/2012 Unknow n FREE T4 49808 FREE T4 1.22 NG/DL 02/23/2012 Unknown COMPREHENSIVE METABOLIC 17209 AST 20 U/L 2011 Unknown COMPREHENSIVE METABOLIC 79853 ALT 11 IU/L 2011 Unknown COMPREHENSIVE METABOLIC 05970 BUN 19 MG/DL 2011 Unknown COMPREHENSIVE METABOLIC 75342 ALBUMIN 4.3 GM/DL 2011 Unknown COMPREHENSIVE METABOLIC 04381 CHLORIDE 109 MMOL/L 02/22 Unknown COMPREHENSIVE METABOLIC 01841 BILI TOT 0.6 MG/DL 2011 Unknown COMPREHENSIVE METABOLIC 28987 ALK PHOS 84 U/L 2011 Unknown COMPREHENSIVE METABOLIC 10154 SODIUM 142 MMOL/L 02/22 Unknown COMPREHENSIVE METABOLIC 89993 CREATININE 1.09 MG/DL 02/04 Unknown COMPREHENSIVE METABOLIC 53677 CALCIUM 9.8 MG/DL 2011 Unknown COMPREHENSIVE METABOLIC 74846 POTASSIUM 4.2 MMOL/L 02/22 Unknown COMPREHENSIVE METABOLIC 54194 PROT TOT 6.4 GM/DL 2011 Unknown COMPREHENSIVE METABOLIC 00660 Glucose 89 MG/DL 2011 Unknown COMPREHENSIVE METABOLIC 89060 BICARB 25 MMOL/L 2011 Unknown COMPREHENSIVE METABOLIC 44086 ANION GAP 8 MEQ/L 2011 Unknown GFR CALC [id number] GFR AA 60.0L ML/MIN 02/23/2012 Unknow n GFR CALC [id number] GFR NON-AA 49.0L ML/MIN 02/23/2012 Unkno wn THYROID STIMULATING HORMONE 10059 TSH 2.450 uIU/ML 02/23/2012 Unknown COMPREHENSIVE METABOLIC 31715 AST 22 U/L 2011 Unknown COMPREHENSIVE METABOLIC 87693 ALT 14 IU/L 2011 Unknown COMPREHENSIVE METABOLIC 85222 BUN 21 MG/DL 2011 Unknown COMPREHENSIVE METABOLIC 73213 ALBUMIN 4.3 GM/DL 2011 Unknown COMPREHENSIVE METABOLIC 83895 CHLORIDE 106 MMOL/L 04/01 Unknown COMPREHENSIVE METABOLIC 52334 BILI TOT 0.4 MG/DL 2011 Unknown COMPREHENSIVE METABOLIC 76324 ALK PHOS 80 U/L 2011 Unknown COMPREHENSIVE METABOLIC 77960 SODIUM 141 MMOL/L 04/01 Unknown COMPREHENSIVE METABOLIC 06308 CREATININE 1.13 MG/DL 03/08 Unknown COMPREHENSIVE METABOLIC 65197 CALCIUM 9.4 MG/DL 2011 Unknown COMPREHENSIVE METABOLIC 90946 POTASSIUM 4.3 MMOL/L 04/01 Unknown COMPREHENSIVE METABOLIC 22875 PROT TOT 6.7 GM/DL 2011 Unknown COMPREHENSIVE METABOLIC 24429 Glucose 98 MG/DL 2011 Unknown COMPREHENSIVE METABOLIC 14893 BICARB 25 MMOL/L 2011 Unknown COMPREHENSIVE METABOLIC 92446 ANION GAP 10 MEQ/L 2011 Unknown LIPID GROUP 32311 HDL TEST 44 MG/DL 04/01/2011 Unknown LIPID GROUP 28371 TRIG 164 MG/DL 04/01/2011 Unknown LIPID GROUP 94485 TEST LDL 98 MG/DL 04/01/2011 Unknown LIPID GROUP 12715 CHOL 175 MG/DL 04/01/2011 Unknown LIPID GROUP 04563 RCHOL/HDL 3.98 RATIO 04/01/2011 Unknow n COMPLETE BLOOD COUNT 66472 WBC 6.7 10e9/L 04/01/19 12 Unknown COMPLETE BLOOD COUNT 21624 RBC 4.36 10e12/L 2011 Unknown COMPLETE BLOOD COUNT 61965 HGB 12.9 g/dL 2 Unknown COMPLETE BLOOD COUNT 37137 HCT DET 39.4 % 2 Unknown COMPLETE BLOOD COUNT 15729 MCV 90.4 fL 2 Unknown COMPLETE BLOOD COUNT 39310 MCH 29.6 pg 2 Unknown COMPLETE BLOOD COUNT 71727 MCHC 32.7 g/dL 2 Unknown COMPLETE BLOOD COUNT 05291 PLT 184 10e9/L 04/01/19 12 Unknown COMPLETE BLOOD COUNT 29419 MPV 10.9 fL 2 Unknown COMPLETE BLOOD COUNT 56854 CINTHYA % 41.5 % 2 Unknown COMPLETE BLOOD COUNT 15443 LY % 45.7 % 2 Unknown COMPLETE BLOOD COUNT 49554 MON % 9.4 % 2 Unknown COMPLETE BLOOD COUNT 79960 EOS % 3.0 % 2 Unknown COMPLETE BLOOD COUNT 87309 BASO % 0.4 % 2 Unknown COMPLETE BLOOD COUNT 55204 RDW 13.2 % 2 Unknown COMPLETE BLOOD COUNT 41374 ABS CINTHYA 2.78 10e9/L 012 Unknown COMPLETE BLOOD COUNT 62690 ABS LYMPH 3.06 10e9/L 012 Unknown COMPLETE BLOOD COUNT 13429 ABS MONO 0.63 10e9/L 012 Unknown COMPLETE BLOOD COUNT 39425 ABS EOS 0.20 10e9/L 012 Unknown COMPLETE BLOOD COUNT 41750 ABS BASO 0.03 10e9/L 012 Unknown COMPLETE BLOOD COUNT 30790 RDW-SD 42.3 fL 2 Unknown GFR CALC [id number] GFR AA 57.0L ML/MIN 04/01/2011 Unknow n GFR CALC [id number] GFR NON-AA 47.0L ML/MIN 04/01/2011 Unkno wn THYROID STIMULATING HORMONE 39860 TSH 2.663 uIU/ML 04/01/2011 Unknown FREE T4 51007 FREE T4 1.15 NG/DL 04/01/2011 Unknown THYROID STIMULATING HORMONE 87156 TSH 1.908 uIU/ML 07/06/2010 Unknown COMPLETE BLOOD COUNT 51056 WBC 6.4 10e9/L 07/07/19 11 Unknown COMPLETE BLOOD COUNT 81846 RBC 3.92 10e12/L 2010 Unknown COMPLETE BLOOD COUNT 94013 HGB 11.8 g/dL 1 Unknown COMPLETE BLOOD COUNT 09170 HCT DET 36.0 % 1 Unknown COMPLETE BLOOD COUNT 04879 MCV 91.8 fL 1 Unknown COMPLETE BLOOD COUNT 37102 MCH 30.1 pg 1 Unknown COMPLETE BLOOD COUNT 08621 MCHC 32.8 g/dL 1 Unknown COMPLETE BLOOD COUNT 91518 PLT 176 10e9/L 07/07/19 11 Unknown COMPLETE BLOOD COUNT 10382 MPV 11.4 fL 1 Unknown COMPLETE BLOOD COUNT 18418 CINTHYA % 50.4 % 1 Unknown COMPLETE BLOOD COUNT 24257 LY % 35.5 % 1 Unknown COMPLETE BLOOD COUNT 48724 MON % 10.2 % 1 Unknown COMPLETE BLOOD COUNT 09046 EOS % 3.3 % 1 Unknown COMPLETE BLOOD COUNT 03438 BASO % 0.6 % 1 Unknown COMPLETE BLOOD COUNT 69652 RDW 13.7 % 1 Unknown COMPLETE BLOOD COUNT 09285 ABS CINTHYA 3.23 10e9/L 011 Unknown COMPLETE BLOOD COUNT 73324 ABS LYMPH 2.27 10e9/L 011 Unknown COMPLETE BLOOD COUNT 95852 ABS MONO 0.65 10e9/L 011 Unknown COMPLETE BLOOD COUNT 46561 ABS EOS 0.21 10e9/L 011 Unknown COMPLETE BLOOD COUNT 43661 ABS BASO 0.04 10e9/L 011 Unknown COMPLETE BLOOD COUNT 84724 RDW-SD 45.3 fL 1 Unknown GFR CALC 1570025 GFR AA >60 ML/MIN 07/06/2010 Unknown GFR CALC 1870710 GFR NON-AA 53.0L ML/MIN 07/06/2010 Unkno wn FREE T4 93462 FREE T4 1.20 NG/DL 07/06/2010 Unknown COMPREHENSIVE METABOLIC 70696 AST 17 U/L 2010 Unknown COMPREHENSIVE METABOLIC 96144 ALT 9 IU/L 2010 Unknown COMPREHENSIVE METABOLIC 24497 BUN 16 MG/DL 2010 Unknown COMPREHENSIVE METABOLIC 30213 ALBUMIN 4.0 GM/DL 2010 Unknown COMPREHENSIVE METABOLIC 55095 CHLORIDE 108 MMOL/L 07/06 Unknown COMPREHENSIVE METABOLIC 00924 BILI TOT 0.5 MG/DL 2010 Unknown COMPREHENSIVE METABOLIC 09363 ALK PHOS 76 U/L 2010 Unknown COMPREHENSIVE METABOLIC 22104 SODIUM 139 MMOL/L 07/06 Unknown COMPREHENSIVE METABOLIC 88518 CREATININE 1.02 MG/DL 04/2010 Unknown COMPREHENSIVE METABOLIC 78150 CALCIUM 9.2 MG/DL 2010 Unknown COMPREHENSIVE METABOLIC 08921 POTASSIUM 4.5 MMOL/L 07/06 Unknown COMPREHENSIVE METABOLIC 69909 PROT TOT 6.1 GM/DL 2010 Unknown COMPREHENSIVE METABOLIC 32675 Glucose 93 MG/DL 2010 Unknown COMPREHENSIVE METABOLIC 92310 BICARB 26 MMOL/L 2010 Unknown COMPREHENSIVE METABOLIC 18311 ANION GAP 5 MEQ/L 2010 Unknown LIPID GROUP 17949 HDL TEST 46 MG/DL 07/06/2010 Unknown LIPID GROUP 31571 TRIG 102 MG/DL 07/06/2010 Unknown LIPID GROUP 86276 TEST LDL 88 MG/DL 07/06/2010 Unknown LIPID GROUP 70634 CHOL 154 MG/DL 07/06/2010 Unknown LIPID GROUP 85368 RCHOL/HDL 3.35 RATIO 07/06/2010 Unknow n Procedures Procedure Codes Date ROUTINE VENIPUNCTURE CPT-4: 05075 03/13/2019 ASSAY THYROID STIM HORMONE CPT-4: 11134 03/13/2019 COMPLETE CBC W/AUTO DIFF WBC CPT-4: 10671 03/13/2019 COMPREHEN METABOLIC PANEL CPT-4: 95331 03/13/2019 ROUTINE VENIPUNCTURE CPT-4: 10811 01/23/2019 LIPID PANEL CPT-4: 84413 01/23/2019 FLU VACC PRSV FREE INC ANTIG 65 AND OLDER CPT-4: 72496 12/26/2018 FLU VACC PRSV FREE INC ANTIG 65 AND OLDER CPT-4: 13728 12/26/2018 ADMIN INFLUENZA VIRUS VAC CPT-4: G0008 12/26/2018 COMPREHEN METABOLIC PANEL CPT-4: 92673 12/15/2018 ROUTINE VENIPUNCTURE CPT-4: 74033 12/15/2018 ROUTINE VENIPUNCTURE CPT-4: 90352 08/14/2018 ASSAY THYROID STIM HORMONE CPT-4: 91074 08/14/2018 COMPREHEN METABOLIC PANEL CPT-4: 18592 08/14/2018 COMPLETE CBC W/AUTO DIFF WBC CPT-4: 28898 08/14/2018 URINALYSIS NONAUTO W/O SCOPE CPT-4: 75823 05/10/2018 URINE CULTURE/ COLONY COUNT CPT-4: 43757 05/10/2018 URINE CULTURE/ COLONY COUNT CPT-4: 00017 12/06/2017 ROUTINE VENIPUNCTURE CPT-4: 54752 11/30/2017 ASSAY OF FREE THYROXINE CPT-4: 88570 11/30/2017 ASSAY THYROID STIM HORMONE CPT-4: 86337 11/30/2017 COMPLETE CBC W/AUTO DIFF WBC CPT-4: 21245 11/30/2017 METABOLIC PANEL TOTAL CA CPT-4: 65129 11/30/2017 FLU VACC PRSV FREE INC ANTIG 65 AND OLDER CPT-4: 07830 11/22/2017 ASSAY, GLUCOSE, BLOOD QUANT CPT-4: 59374 11/22/2017 ADMIN INFLUENZA VIRUS VAC CPT-4: G0008 11/22/2017 ROUTINE VENIPUNCTURE CPT-4: 44105 09/27/2017 COMPREHEN METABOLIC PANEL CPT-4: 09166 09/27/2017 COMPLETE CBC W/AUTO DIFF WBC CPT-4: 35264 09/27/2017 A1C HPLC CPT-4: 78287 09/27/2017 ASSAY OF TROPONIN QUANT CPT-4: 58250 09/27/2017 LIPID PANEL CPT-4: 23077 09/27/2017 THER/PROPH/DIAG INJ SC/IM CPT-4: 37083 05/30/2017 TRIAMCINOLONE ACET INJ NOS CPT-4: J3301 05/30/2017 URINALYSIS NONAUTO W/O SCOPE CPT-4: 15203 04/18/2017 URINE CULTURE/ COLONY COUNT CPT-4: 98197 04/18/2017 FLU VACC PRSV FREE INC ANTIG 65 AND OLDER CPT-4: 07521 12/10/2016 ADMIN INFLUENZA VIRUS VAC CPT-4: G0008 12/10/2016 ROUTINE VENIPUNCTURE CPT-4: 54344 11/01/2016 COMPREHEN METABOLIC PANEL CPT-4: 50906 11/01/2016 COMPLETE CBC W/AUTO DIFF WBC CPT-4: 61703 11/01/2016 LIPID PANEL CPT-4: 88467 11/01/2016 A1C HPLC CPT-4: 80238 11/01/2016 ASSAY THYROID STIM HORMONE CPT-4: 76267 11/01/2016 ROUTINE VENIPUNCTURE CPT-4: 43531 05/13/2016 ASSAY THYROID STIM HORMONE CPT-4: 81664 05/13/2016 COMPREHEN METABOLIC PANEL CPT-4: 52463 05/13/2016 COMPLETE CBC W/AUTO DIFF WBC CPT-4: 42046 05/13/2016 A1C HPLC CPT-4: 29065 05/13/2016 FLU VACC PRSV FREE INC ANTIG 65 AND OLDER CPT-4: 88413 12/12/2015 ADMIN INFLUENZA VIRUS VAC CPT-4: G0008 12/12/2015 ROUTINE VENIPUNCTURE CPT-4: 12985 11/25/2015 ASSAY OF FREE THYROXINE CPT-4: 26513 11/25/2015 ASSAY THYROID STIM HORMONE CPT-4: 95882 11/25/2015 COMPREHEN METABOLIC PANEL CPT-4: 98495 11/25/2015 COMPLETE CBC W/AUTO DIFF WBC CPT-4: 49463 11/25/2015 LIPID PANEL CPT-4: 91566 11/25/2015 A1C HPLC CPT-4: 88016 11/25/2015 URINALYSIS NONAUTO W/O SCOPE CPT-4: 39778 05/21/2015 ROUTINE VENIPUNCTURE CPT-4: 48535 02/19/2015 METABOLIC PANEL TOTAL CA CPT-4: 76828 02/19/2015 PRESCRIP TRANSMIT VIA ERX SY CPT-4: G8553 02/19/2015 FLU VACC PRSV FREE INC ANTIG 65 AND OLDER CPT-4: 25659 12/20/2014 ADMIN INFLUENZA VIRUS VAC CPT-4: G0008 12/20/2014 URINALYSIS NONAUTO W/O SCOPE CPT-4: 52797 11/19/2014 URINE CULTURE/ COLONY COUNT CPT-4: 85460 11/19/2014 ROUTINE VENIPUNCTURE CPT-4: 97415 11/14/2014 ASSAY OF FREE THYROXINE CPT-4: 58923 11/14/2014 ASSAY THYROID STIM HORMONE CPT-4: 97735 11/14/2014 COMPREHEN METABOLIC PANEL CPT-4: 89740 11/14/2014 COMPLETE CBC W/AUTO DIFF WBC CPT-4: 52048 11/14/2014 LIPID PANEL CPT-4: 50677 11/14/2014 A1C HPLC CPT-4: 78534 11/14/2014 CERUM REMOVAL CPT-4: 78306 09/27/2014 PRESCRIP TRANSMIT VIA ERX SY CPT-4: G8553 07/11/2014 FLUZONE, 5ML (Medicare) CPT-4: Q2038 12/21/2013 ADMIN INFLUENZA VIRUS VAC CPT-4: G0008 12/21/2013 PRESCRIP TRANSMIT VIA ERX SY CPT-4: G8553 10/17/2013 PRESCRIP TRANSMIT VIA ERX SY CPT-4: G8553 09/24/2013 PRESCRIP TRANSMIT VIA ERX SY CPT-4: G8553 05/31/2013 ROUTINE VENIPUNCTURE CPT-4: 66412 03/28/2013 ASSAY OF FREE THYROXINE CPT-4: 71875 03/28/2013 ASSAY THYROID STIM HORMONE CPT-4: 69566 03/28/2013 COMPREHEN METABOLIC PANEL CPT-4: 50549 03/28/2013 COMPLETE CBC W/AUTO DIFF WBC CPT-4: 46263 03/28/2013 LIPID PANEL CPT-4: 00372 03/28/2013 A1C HPLC CPT-4: 77007 03/28/2013 VITAMIN B 12 FOLIC ACID CPT-4: 25363|68814 03/28/2013 PRESCRIP TRANSMIT VIA ERX SY CPT-4: G8553 03/26/2013 PRESCRIP TRANSMIT VIA ERX SY CPT-4: G8553 12/19/2012 FLUZONE, 5ML (Medicare) CPT-4: Q2038 11/27/2012 ADMIN INFLUENZA VIRUS VAC CPT-4: G0008 11/27/2012 PRESCRIP TRANSMIT VIA ERX SY CPT-4: G8553 10/04/2012 PRESCRIP TRANSMIT VIA ERX SY CPT-4: G8553 07/14/2012 ROUTINE VENIPUNCTURE CPT-4: 81404 02/23/2012 ASSAY OF FREE THYROXINE CPT-4: 96184 02/23/2012 ASSAY THYROID STIM HORMONE CPT-4: 87980 02/23/2012 COMPREHEN METABOLIC PANEL CPT-4: 23287 02/23/2012 COMPLETE CBC W/AUTO DIFF WBC CPT-4: 64843 02/23/2012 LIPID PANEL CPT-4: 24535 02/23/2012 A1C GLYCOSYLATED HEMOGLOBIN TEST CPT-4: 83737 012 CERUM REMOVAL CPT-4: 29358 02/22/2012 PRESCRIP TRANSMIT VIA ERX SY CPT-4: G8553 02/22/2012 PRESCRIP TRANSMIT VIA ERX SY CPT-4: G8553 12/15/2011 FLUZONE, 5ML (Medicare) CPT-4: Q2038 12/02/2011 ADMIN INFLUENZA VIRUS VAC CPT-4: G0008 12/02/2011 ASSAY, GLUCOSE, BLOOD QUANT CPT-4: 07445 09/21/2011 URINALYSIS NONAUTO W/O SCOPE CPT-4: 81091 09/16/2011 URINE CULTURE/ COLONY COUNT CPT-4: 79952 09/16/2011 ROUTINE VENIPUNCTURE CPT-4: 39713 09/15/2011 ASSAY OF FREE THYROXINE CPT-4: 50081 09/15/2011 ASSAY THYROID STIM HORMONE CPT-4: 88612 09/15/2011 COMPREHEN METABOLIC PANEL CPT-4: 93130 09/15/2011 COMPLETE CBC W/AUTO DIFF WBC CPT-4: 57811 09/15/2011 LIPID PANEL CPT-4: 02361 09/15/2011 ASSAY OF INSULIN CPT-4: 34312 09/15/2011 A1C GLYCOSYLATED HEMOGLOBIN TEST CPT-4: 99016 012 DRAIN/INJECT JOINT/BURSA CPT-4: 71339 08/16/2011 METHYLPREDNISOLONE 40 MG INJ CPT-4: J1030 08/16/2011 TRIAMCINOLONE ACET INJ NOS CPT-4: J3301 08/16/2011 PRESCRIP TRANSMIT VIA ERX SY CPT-4: G8553 08/03/2011 PRESCRIP TRANSMIT VIA ERX SY CPT-4: G8553 07/26/2011 METHYLPREDNISOLONE 40 MG INJ CPT-4: J1030 06/28/2011 DRAIN/INJECT JOINT/BURSA CPT-4: 64925 06/28/2011 TRIAMCINOLONE ACET INJ NOS CPT-4: J3301 06/28/2011 PRESCRIP TRANSMIT VIA ERX SY CPT-4: G8553 06/28/2011 ROUTINE VENIPUNCTURE CPT-4: 14274 04/01/2011 ASSAY OF FREE THYROXINE CPT-4: 91346 04/01/2011 ASSAY THYROID STIM HORMONE CPT-4: 80391 04/01/2011 COMPREHEN METABOLIC PANEL CPT-4: 77342 04/01/2011 COMPLETE CBC W/AUTO DIFF WBC CPT-4: 01231 04/01/2011 LIPID PANEL CPT-4: 47486 04/01/2011 PRESCRIP TRANSMIT VIA ERX SY CPT-4: G8553 03/31/2011 CERUM REMOVAL CPT-4: 56668 02/11/2011 PRESCRIP TRANSMIT VIA ERX SY CPT-4: G8553 02/11/2011 FLUZONE, 5ML (Medicare) CPT-4: Q2038 12/09/2010 ADMIN INFLUENZA VIRUS VAC CPT-4: G0008 12/09/2010 PRESCRIP TRANSMIT VIA ERX SY CPT-4: G8553 10/15/2010 URINALYSIS NONAUTO W/O SCOPE CPT-4: 60135 09/29/2010 URINE CULTURE/ COLONY COUNT CPT-4: 05333 09/29/2010 CUR TOBACCO NON-USER CPT-4: G8457 09/29/2010 ROUTINE VENIPUNCTURE CPT-4: 68005 07/06/2010 COMPLETE CBC W/AUTO DIFF WBC CPT-4: 38903 07/06/2010 COMPREHEN METABOLIC PANEL CPT-4: 73582 07/06/2010 LIPID PANEL CPT-4: 84270 07/06/2010 ASSAY THYROID STIM HORMONE CPT-4: 47259 07/06/2010 ASSAY OF FREE THYROXINE CPT-4: 84644 07/06/2010 PRESCRIP TRANSMIT VIA ERX SY CPT-4: G8553 07/02/2010 INJ TRIGGER POINT 1/2 MUSCL CPT-4: 84632 04/06/2010 TRIAMCINOLONE ACET INJ NOS CPT-4: J3301 04/06/2010 METHYLPREDNISOLONE 40 MG INJ CPT-4: J1030 04/06/2010 THER/PROPH/DIAG INJ SC/IM CPT-4: 24533 04/01/2010 KETOROLAC TROMETHAMINE INJ CPT-4: J1885 04/01/2010 PRESCRIP TRANSMIT VIA ERX SY CPT-4: G8553 01/22/2010 FLU VACCINE 3 YRS & > IM UP 64 CPT-4: 92871 0 ADMIN INFLUENZA VIRUS VAC CPT-4: G0008 12/10/2009 URINALYSIS NONAUTO W/O SCOPE CPT-4: 40043 12/02/2009 URINE CULTURE/ COLONY COUNT CPT-4: 88777 12/02/2009 PRESCRIP TRANSMIT VIA ERX SY CPT-4: G8553 12/02/2009 THER/PROPH/DIAG INJ SC/IM CPT-4: 71642 09/10/2009 VITAMIN B12 INJECTION CPT-4: J3420 09/10/2009 THER/PROPH/DIAG INJ SC/IM CPT-4: 98920 08/11/2009 VITAMIN B12 INJECTION CPT-4: J3420 08/11/2009 ROUTINE VENIPUNCTURE CPT-4: 81527 06/10/2009 Vital Signs Date Vital 03/20/2019 Blood [...] 1: 142/60 Code: 8480-6 BMI: 38.2 Code: 00327-5 Heart Rate 1: 48 bpm Height: 5'2" Respiratory Rate: 20 bpm SpO2: 98% Tempera ture: 36.7 (C) / 98.1 (F) Weight: 212 lbs 01/10/2018 Blood Pressure 1: 142/64 Code: 8480-6 BMI: 38.5 Code: 65234-6 Heart Rate 1: 52 bpm Height: 5'2" Respiratory Rate: 22 bpm SpO2: 96% Tempera ture: 36.1 (C) / 96.9 (F) Weight: 214 lbs 12/06/2017 Blood Pressure 1: 124/80 Code: 8480-6 BMI: 38.3 Code: 90104-6 Heart Rate 1: 68 bpm Height: 5'2" Respiratory Rate: 20 bpm Temperature: 36 .3 (C) / 97.4 (F) Weight: 213 lbs 11/22/2017 Blood Pressure 1: 132/78 Code: 8480-6 BMI: 37.6 Code: 72041-4 Heart Rate 1: 68 bpm Height: 5'2" Respiratory Rate: 20 bpm SpO2: 97% Tempera ture: 36.8 (C) / 98.2 (F) Weight: 209 lbs 10/20/2017 Blood Pressure 1: 150/76 Code: 8480-6 BMI: 38.5 Code: 20179-0 Heart Rate 1: 64 bpm Height: 5'2" Respiratory Rate: 20 bpm SpO2: 97% Tempera ture: 36.2 (C) / 97.2 (F) Weight: 214 lbs 09/27/2017 Blood Pressure 1: 122/74 Code: 8480-6 BMI: 38.2 Code: 85782-0 Heart Rate 1: 64 bpm Height: 5'2" Respiratory Rate: 18 bpm SpO2: 96% Tempera ture: 35.8 (C) / 96.4 (F) Weight: 212 lbs 08/16/2017 Blood Pressure 1: 124/78 Code: 8480-6 BMI: 37.8 Code: 69206-2 Heart Rate 1: 76 bpm Height: 5'2" Respiratory Rate: 20 bpm Temperature: 36 .8 (C) / 98.3 (F) Weight: 210 lbs 07/07/2017 Blood Pressure 1: 136/70 Code: 8480-6 BMI: 38.0 Code: 85062-3 Heart Rate 1: 68 bpm Height: 5'2" Respiratory Rate: 20 bpm SpO2: 97% Tempera ture: 36.8 (C) / 98.2 (F) Weight: 211 lbs 05/30/2017 Blood Pressure 1: 140/65 Code: 8480-6 Heart Rate 1: 75 bpm Respiratory Rate: 24 bpm SpO2: 95% Temperature: 37.0 (C) / 98.6 (F) We ight: 211 lbs 04/18/2017 Blood Pressure 1: 154/70 Code: 8480-6 BMI: 37.6 Code: 37669-8 Heart Rate 1: 76 bpm Height: 5'2" Respiratory Rate: 20 bpm SpO2: 98% Tempera ture: 36.9 (C) / 98.5 (F) Weight: 209 lbs 10/25/2016 Blood Pressure 1: 156/70 Code: 8480-6 BMI: 37.1 Code: 51569-2 Heart Rate 1: 72 bpm Height: 5'2" Respiratory Rate: 20 bpm SpO2: 97% Tempera ture: 37.0 (C) / 98.6 (F) Weight: 206 lbs 09/20/2016 Blood Pressure 1: 152/78 Code: 8480-6 BMI: 36.8 Code: 39654-6 Heart Rate 1: 78 bpm Height: 5'2" Respiratory Rate: 20 bpm SpO2: 98% Tempera ture: 36.1 (C) / 97.0 (F) Weight: 204 lbs 05/12/2016 Blood Pressure 1: 142/70 Code: 8480-6 BMI: 36.9 Code: 29233-8 Heart Rate 1: 64 bpm Height: 5'2" [...] 1: 122/64 Code: 8480-6 BMI: 39.1 Code: 42111-4 Heart Rate 1: 76 bpm Height: 5'2" Respiratory Rate: 20 bpm Temperature: 36 .8 (C) / 98.2 (F) Weight: 217 lbs 05/21/2015 Blood Pressure 1: 144/70 Code: 8480-6 BMI: 39.4 Code: 43113-3 Heart Rate 1: 76 bpm Height: 5'2" Respiratory Rate: 20 bpm Temperature: 36 .6 (C) / 97.9 (F) Weight: 219 lbs 02/19/2015 Blood Pressure 1: 152/60 Code: 8480-6 BMI: 39.6 Code: 71571-5 Heart Rate 1: 84 bpm Height: 5'2" Respiratory Rate: 20 bpm Temperature: 37 .0 (C) / 98.6 (F) Weight: 220 lbs 11/13/2014 Blood Pressure 1: 146/76 Code: 8480-6 BMI: 39.8 Code: 68307-9 Heart Rate 1: 88 bpm Height: 5'2" Respiratory Rate: 20 bpm Temperature: 37 .0 (C) / 98.6 (F) Weight: 221 lbs 09/27/2014 Blood Pressure 1: 132/70 Code: 8480-6 BMI: 39.1 Code: 20527-5 Heart Rate 1: 88 bpm Height: 5'2" Respiratory Rate: 20 bpm Temperature: 36 .4 (C) / 97.6 (F) Weight: 217 lbs 07/11/2014 Blood Pressure 1: 132/66 Code: 8480-6 BMI: 39.9 Code: 51683-2 Heart Rate 1: 72 bpm Height: 5'2" Respiratory Rate: 20 bpm Temperature: 36 .9 (C) / 98.4 (F) Weight: 218 lbs 05/23/2014 Blood Pressure 1: 136/80 Code: 8480-6 Heart Rate 1: 76 bpm Respiratory Rate: 20 bpm Temperature: 36.7 (C) / 98.0 (F) Weight: 224 lbs 03/20/2014 Blood Pressure 1: 134/78 Code: 8480-6 BMI: 39.7 Code: 23194-6 Heart Rate 1: 84 bpm Height: 5'2" Respiratory Rate: 20 bpm Temperature: 36 .7 (C) / 98.0 (F) Weight: 217 lbs 10/17/2013 Blood Pressure 1: 146/78 Code: 8480-6 BMI: 39.5 Code: 31122-2 Heart Rate 1: 82 bpm Height: 5'2" Respiratory Rate: 18 bpm Temperature: 35 .6 (C) / 96.1 (F) Weight: 216 lbs 09/24/2013 Blood Pressure 1: 134/70 Code: 8480-6 BMI: 37.9 Code: 31630-3 Heart Rate 1: 80 bpm Height: 5'3" Respiratory Rate: 20 bpm Temperature: 36 .8 (C) / 98.2 (F) Weight: 214 lbs 05/31/2013 Blood Pressure 1: 132/70 Code: 8480-6 BMI: 37.6 Code: 81139-1 Heart Rate 1: 80 bpm Height: 5'3" Respiratory Rate: 20 bpm Temperature: 36 .8 (C) / 98.3 (F) Weight: 212 lbs 03/26/2013 Blood Pressure 1: 116/74 Code: 8480-6 Heart Rate 1: 68 bpm Respiratory Rate: 20 bpm Temperature: 36.2 (C) / 97.1 (F) Weight: 212 lbs 12/19/2012 Blood Pressure 1: 132/82 Code: 8480-6 BMI: 37.4 Code: 64942-3 Heart Rate 1: 76 bpm Height: 5'3" Respiratory Rate: 20 bpm Temperature: 36 .7 (C) / 98.0 (F) Weight: 211 lbs 12/04/2012 Blood Pressure 1: 130/76 Code: 8480-6 He art Rate 1: 78 bpm 11/27/2012 Blood Pressure 1: 140/82 Code: 8480-6 BMI: 36.8 Code: 83022-8 Heart Rate 1: 66 bpm Height: 5'3" Respiratory Rate: 20 bpm Temperature: 36 .1 (C) / 96.9 (F) Weight: 208 lbs 10/04/2012 Blood Pressure 1: 138/80 Code: 8480-6 BMI: 36.4 Code: 33727-1 Heart Rate 1: 72 bpm Height: 5'4" Respiratory Rate: 20 bpm Temperature: 36 .7 (C) / 98.0 (F) Weight: 212 lbs 07/27/2012 Blood Pressure 1: 124/70 Code: 8480-6 BMI: 36.9 Code: 37250-5 Heart Rate 1: 60 bpm Height: 5'4" Temperature: 36.1 (C) / 97.0 (F) Weight: 215 lbs 07/14/2012 Blood Pressure 1: 132/86 Code: 8480-6 BMI: 36.9 Code: 27006-4 Heart Rate 1: 76 bpm Height: 5'4" Respiratory Rate: 20 bpm Temperature: 36 .8 (C) / 98.2 (F) Weight: 215 lbs 06/08/2012 Blood Pressure 1: 134/82 Code: 8480-6 BMI: 36.6 Code: 82274-8 Heart Rate 1: 72 bpm Height: 5'4" Respiratory Rate: 20 bpm Temperature: 36 .3 (C) / 97.4 (F) Weight: 213 lbs 02/22/2012 Blood Pressure 1: 142/80 Code: 8480-6 BMI: 37.1 Code: 68090-1 Heart Rate 1: 76 bpm Height: 5'4" Respiratory Rate: 20 bpm Temperature: 36 .8 (C) / 98.3 (F) Weight: 216 lbs 12/28/2011 Blood Pressure 1: 128/68 Code: 8480-6 BMI: 37.6 Code: 98989-2 Heart Rate 1: 72 bpm Height: 5'4" [...] 1: 128/78 Code: 8480-6 BMI: 38.1 Code: 32993-4 Heart Rate 1: 84 bpm Height: 5'4" Respiratory Rate: 20 bpm Temperature: 36 .9 (C) / 98.4 (F) Weight: 222 lbs 08/16/2011 Blood Pressure 1: 138/80 Code: 8480-6 BMI: 37.9 Code: 82378-6 Heart Rate 1: 74 bpm Height: 5'4" Temperature: 36.1 (C) / 97.0 (F) Weight: 221 lbs 08/03/2011 Blood Pressure 1: 126/78 Code: 8480-6 BMI: 38.4 Code: 19417-3 Heart Rate 1: 72 bpm Height: 5'4" Respiratory Rate: 20 bpm Temperature: 36 .7 (C) / 98.0 (F) Weight: 224 lbs 07/26/2011 Blood Pressure 1: 138/72 Code: 8480-6 BMI: 38.4 Code: 26086-1 Heart Rate 1: 72 bpm Height: 5'4" Respiratory Rate: 20 bpm Temperature: 36 .6 (C) / 97.9 (F) Weight: 224 lbs 06/28/2011 Blood Pressure 1: 122/78 Code: 8480-6 BMI: 38.8 Code: 65025-7 Heart Rate 1: 88 bpm Height: 5'4" Respiratory Rate: 20 bpm Temperature: 36 .6 (C) / 97.8 (F) Weight: 226 lbs 03/31/2011 Blood Pressure 1: 116/60 Code: 8480-6 BMI: 38.1 Code: 22236-8 Heart Rate 1: 92 bpm Height: 5'4" Respiratory Rate: 20 bpm Temperature: 36 .8 (C) / 98.2 (F) Weight: 222 lbs 02/11/2011 Blood Pressure 1: 118/62 Code: 8480-6 BMI: 37.9 Code: 15498-8 Heart Rate 1: 80 bpm Height: 5'4" Temperature: 36.5 (C) / 97.7 (F) Weight: 221 lbs 10/15/2010 Blood Pressure 1: 132/70 Code: 8480-6 Heart Rate 1: 84 bpm Respiratory Rate: 20 bpm Temperature: 36.7 (C) / 98.0 (F) Weight: 221 lbs 09/29/2010 Blood Pressure 1: 114/72 Code: 8480-6 BMI: 37.6 Code: 70776-8 Heart Rate 1: 76 bpm Height: 5'4" [...] 1: 120/70 Code: 8480-6 BMI: 38.3 Code: 16288-8 Heart Rate 1: 88 bpm Height: 5'5" [...] but had more that day. [facility] began to feel very ill and became [...] 09/27/2014 pain, limb 07/11/2014 follow up 05/23/2014 [facility] fwup high blood pressure 03/20/2014 injection(s) [...] fwup hip pain 04/01/2010 feels very draggy, kaveh fontana, BP 80/63, normally running 100's/60's chills 01/22/2010 [...] 06/09/2009 Encounters Encounter Performer Location Codes Date () OFFICE/OUTPATIENT VISIT EST Diagnosis: Essential (primary) hypertension[ICD10: I10] Diagnosis: Palpitations[ICD10: R00.2] Vikki Shah [place] [facility] [employer] CPT-4: 59717 03/20/2019 ([id number]) OFFICE/OUTPATIENT VISIT EST Diagnosis: Essential hypertension[ICD10: I10] Diagnosis: Palpitations[ICD10: R00.2] Diagnosis: Stress reaction[ICD10: F43.0] Vikki Shah [facility] [employer] CPT-4: 52239 03/13/2019 ([id number]) NURSE/OUTPATIENT VISIT EST Diagnosis: Mixed hyperlipidemia[ICD10: E78.2] Vikki Shah CISCONDER [employer] CPT-4: 01683 01/23/2019 ([id number]) NURSE/OUTPATIENT VISIT EST Diagnosis: FLU VACCINE[ICD10: Z23] Vikki MARTINOND ER [employer] CPT-4: 80132 12/26/2018 ([id number]) NURSE/OUTPATIENT VISIT EST Diagnosis: Chronic kidney disease, stage 1[ICD10: N18.1] Vikki CIDER DO [employer] CPT-4: 35018 12/15/2018 ([id number]) OFFICE/OUTPATIENT VISIT EST Diagnosis: Acute serous otitis media, left ear[ICD10: H65.02] Jennifer Marlene Shah [employer] CPT-4: 62054 11/07/2018 ([id number]) OFFICE/OUTPATIENT VISIT EST Diagnosis: Essential (primary) hypertension[ICD10: I10] Diagnosis: 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] Diagnosis: Hypoglycemia, unspecified[ICD10: E16.2] Diagnosis: Other fatigue[ICD10: R53.83] Diagnosis: Urinary tract infection, site not specified[ICD10: N39.0] Vikki GUAMAN [employer] CPT-4: 43941 08/14/2018 ([id number]) OFFICE/OUTPATIENT VISIT EST Diagnosis: Essential (primary) hypertension[ICD10: I10] Diagnosis: Gastro-esophageal reflux disease without esophagitis[ICD10: K21.9] Diagnosis: Urinary tract infection, site not specified[ICD10: N39.0] Vikki GUAMAN [employer] CPT-4: 92282 05/10/2018 ([id number]) OFFICE/OUTPATIENT VISIT EST Diagnosis: Gastro-esophageal reflux disease without esophagitis[ICD10: K21.9] Diagnosis: Epigastric pain[ICD10: R10.13] Vikki MARTINOPrixtelQUINN [employer] CPT-4: 70697 02/14/2018 ([id number]) OFFICE/OUTPATIENT VISIT EST 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] Diagnosis: Essential (primary) hypertension[ICD10: I10] Diagnosis: Generalized anxiety disorder[ICD10: F41.1] Diagnosis: Gastro-esophageal reflux disease without esophagitis[ICD10: K21.9] Vikki GUAMAN [employer] CPT-4: 74658 01/10/2018 OFFICE/OUTPATIENT VISIT EST Diagnosis: Gastro-esophageal reflux disease without esophagitis[ICD10: K21.9] Diagnosis: Palpitations[ICD10: R00.2] Diagnosis: Urinary tract infection, site not specified[ICD10: N39.0] Diagnosis: Generalized anxiety disorder[ICD10: F41.1] Vikki GUAMAN [employer] CPT-4: 50194 12/06/2017 ([id number]) NURSE/OUTPATIENT VISIT EST Diagnosis: 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] Diagnosis: Hypoglycemia, unspecified[ICD10: E16.2] Diagnosis: Dizziness and giddiness[ICD10: R42] Diagnosis: Occlusion and stenosis of bilateral carotid arteries[ICD10: I65.23] Vikki GUAMAN [facility] CPT-4: 57503 11/30/2017 OFFICE/OUTPATIENT VISIT EST Diagnosis: Epigastric pain[ICD10: R10.13] Diagnosis: Generalized anxiety disorder[ICD10: F41.1] Diagnosis: FLU VACCINE[ICD10: Z23] Vikki BALL [facility] CPT-4: 44344 11/22/2017 ([id number]) OFFICE/OUTPATIENT VISIT EST Diagnosis: Essential (primary) hypertension[ICD10: I10] Diagnosis: Hypoglycemia, unspecified[ICD10: E16.2] Diagnosis: Gastro-esophageal reflux disease without esophagitis[ICD10: K21.9] [facility] 51320 10/20/2017 ([id number]) OFFICE/OUTPATIENT VISIT EST Diagnosis: Dizziness and giddiness[ICD10: R42] [facility]: 77768 09/27/2017 ([id number]) OFFICE/OUTPATIENT VISIT EST Diagnosis: Cervicalgia[ICD10: M54.2] Diagnosis: Other spondylosis with radiculopathy, cervical region[ICD10: M47.22] [facility] 68630 08/16/2017 ([id number]) OFFICE/OUTPATIENT VISIT EST Diagnosis: Hypoglycemia, unspecified[ICD10: E16.2] Diagnosis: Other spondylosis with radiculopathy, cervical region[ICD10: M47.22] Diagnosis: Vertigo of central origin, 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] Diagnosis: 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] Vikki GUAMAN [facility] CPT-4: 07623 07/07/2017 ([id number]) OFFICE/OUTPATIENT VISIT EST Diagnosis: Benign paroxysmal vertigo, bilateral[ICD10: H81.13] Diagnosis: Otalgia, bilateral[ICD10: H92.03] Jennifer Rosario ROMMELJEANNA RobertsSujata [facility]IZ [facility] CPT-4: 98423 05/30/2017 ([id number]) OFFICE/OUTPATIENT VISIT EST Diagnosis: Low back pain[ICD10: M54.5] Diagnosis: Radiculopathy, lumbosacral region[ICD10: M54.17] Diagnosis: Left lower quadrant pain[ICD10: R10.32] Vikki CRISOSTOMO AlejandraSujata [facility] CPT-4: 06803 04/18/2017 ([id number]) OFFICE/OUTPATIENT VISIT EST Diagnosis: FLU VACCINE[ICD10: Z23] Vikki PIKE AlejandraSujata PALAK BALL [facility] CPT-4: 87125 12/10/2016 ([id number]) OFFICE/OUTPATIENT VISIT EST Diagnosis: Mixed hyperlipidemia[ICD10: E78.2] Diagnosis: Essential (primary) hypertension[ICD10: I10] 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] Diagnosis: Impaired fasting glucose[ICD10: R73.01] Diagnosis: Other fatigue[ICD10: R53.83] Vikki PIKE AlejandraSujata DENIZ [facility] CPT-4: 58493 11/01/2016 ([id number]) OFFICE/OUTPATIENT VISIT EST Diagnosis: Pain in thoracic spine[ICD10: M54.6] Diagnosis: Other intervertebral disc degeneration, 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] Vikki Shah [facility] CPT-4: 26957 10/25/2016 ([id number]) OFFICE/OUTPATIENT VISIT EST Diagnosis: Left lower quadrant pain[ICD10: R10.32] Diagnosis: Low back pain[ICD10: M54.5] Vikki RUBI [facility] CPT-4: 94679 09/20/2016 ([id number]) OFFICE/OUTPATIENT VISIT EST Diagnosis: Mixed hyperlipidemia[ICD10: E78.2] Diagnosis: Essential (primary) hypertension[ICD10: I10] Diagnosis: Hypoglycemia, unspecified[ICD10: E16.2] Vikkiluther GUAMAN [facility] CPT-4: 91004 05/13/2016 ([id number]) OFFICE/OUTPATIENT VISIT EST Diagnosis: Impaired fasting glucose[ICD10: R73.01] Diagnosis: Mastodynia[ICD10: N64.4] Diagnosis: Mixed hyperlipidemia[ICD10: E78.2] Diagnosis: Essential (primary) hypertension[ICD10: I10] Diagnosis: Other fatigue[ICD10: R53.83] Vikki GUAMAN [facility] CPT-4: 64117 05/12/2016 ([id number]) OFFICE/OUTPATIENT VISIT EST Diagnosis: Acute upper respiratory infection, unspecified[ICD10: J06.9] Yue GUAMAN [facility] CPT-4: 94820 03/18/2016 ([id number]) OFFICE/OUTPATIENT VISIT EST Diagnosis: Acute mastoiditis without complications, right ear[ICD10: H70.001] Vikki GUAMAN [facility] CPT-4: 54955 02/06/2016 ([id number]) OFFICE/OUTPATIENT VISIT EST Diagnosis: FLU VACCINE[ICD10: Z23] Vikki BALL [facility] CPT-4: 94290 12/12/2015 ([id number]) OFFICE/OUTPATIENT VISIT EST Diagnosis: Mixed hyperlipidemia[ICD10: E78.2] Diagnosis: Essential (primary) hypertension[ICD10: I10] 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] Diagnosis: Impaired fasting glucose[ICD10: R73.01] Vikki Ciscomikequinn GUAMAN [facility] CPT-4: 27423 11/25/2015 ([id number]) OFFICE/OUTPATIENT VISIT EST Diagnosis: Constipation, unspecified[ICD10: K59.00] Vikki GUAMAN [facility] CPT-4: 72421 08/26/2015 ([id number]) OFFICE/OUTPATIENT VISIT EST Diagnosis: Essential (primary) hypertension[ICD10: I10] Diagnosis: Mixed hyperlipidemia[ICD10: E78.2] Diagnosis: Chronic kidney disease, stage 1[ICD10: N18.1] Vikki GUAMAN [facility] CPT-4: 61370 05/21/2015 ([id number]) OFFICE/OUTPATIENT VISIT EST Diagnosis: Muscle weakness (generalized)[ICD10: M62.81] Diagnosis: Dizziness and giddiness[ICD10: R42] Diagnosis: Essential (primary) hypertension[ICD10: I10] Diagnosis: History of falling[ICD10: Z91.81] Vikki GUAMAN [facility] CPT-4: 55577 02/19/2015 ([id number]) OFFICE/OUTPATIENT VISIT EST Diagnosis: FLU VACCINE[ICD10: Z23] Vikki BALL [facility] CPT-4: 30386 12/20/2014 ([id number]) OFFICE/OUTPATIENT VISIT EST Diagnosis: Acute renal failure[ICD9: 584.9] Diagnosis: POLYURIA[ICD9: 788.42] Vikki Rees [facility] CPT-4: 56709 11/19/2014 ([id number]) OFFICE/OUTPATIENT VISIT EST Diagnosis: HYPERLIPIDEMIA NEC/NOS[ICD9: 272.4] Diagnosis: HYPERTENSION[ICD9: 401.9] Diagnosis: CAD[ICD9: 414.00] Diagnosis: Hyperglycemia[ICD9: 790.29] Diagnosis: MALAISE AND FATIGUE[ICD9: 780.79] Vikki GUAMAN DO [facility] CPT-4: 27914 11/14/2014 ([id number]) OFFICE/OUTPATIENT VISIT EST Diagnosis: MALAISE AND FATIGUE[ICD9: 780.79] Diagnosis: HYPOGLYCEMIA[ICD9: 251.2] Diagnosis: Grieving[ICD9: 309.0] Diagnosis: ABDOMINAL PAIN[ICD9: 789.00] Vikki GUAMAN [facility] CPT-4: 72629 11/13/2014 OFFICE/OUTPATIENT VISIT EST Diagnosis: CERUMEN IMPACTION[ICD9: 380.4] Diagnosis: EUSTACHIAN TUBE DYSFUNCTION[ICD9: 381.81] Jessenia Penny VIKKI GUAMAN [facility] CPT-4: 75348 09/27/2014 ([id number]) OFFICE/OUTPATIENT VISIT EST Diagnosis: Leg pain[ICD9: 729.5] Diagnosis: SUPERFIC PHLEBITIS-LEG[ICD9: 451.0] Vikki GUAMAN [facility] CPT-4: 11102 07/11/2014 ([id number]) OFFICE/OUTPATIENT VISIT EST Diagnosis: Thoracic back pain[ICD9: 724.1] Diagnosis: SPASM OF MUSCLE[ICD9: 728.85] Vikki GUAMAN [facility] CPT-4: 75074 05/23/2014 ([id number]) OFFICE/OUTPATIENT VISIT EST Diagnosis: DIZZINESS/VERTIGO[ICD9: 780.4] Diagnosis: Benign positional vertigo[ICD9: 386.11] Diagnosis: HYPERTENSION[ICD9: 401.9] Diagnosis: Suspicious nevus[ICD9: 238.2] [facility] 99589 03/20/2014 ([id number]) OFFICE/OUTPATIENT VISIT EST Diagnosis: FLU VACCINE[ICD10: Z23] Vikki CID [facility] CPT-4: 28176 12/21/2013 OFFICE/OUTPATIENT VISIT EST Diagnosis: SINUSITIS, ACUTE[ICD9: 461.9] Diagnosis: EUSTACHIAN TUBE DYSFUNCTION[ICD9: 381.81] Jessenia Francis VIKKI [facility]PT-[facility]: 10492 10/17/2013 ([id number]) OFFICE/OUTPATIENT VISIT EST Diagnosis: DIZZINESS/VERTIGO[ICD9: 780.4] Diagnosis: HYPERTENSION[ICD9: 401.9] Vikki MARTINEZ [facility] CPT-4: 82153 09/24/2013 ([id number]) OFFICE/OUTPATIENT VISIT EST Diagnosis: HYPERTENSION[ICD9: 401.9] Diagnosis: MALAISE AND FATIGUE[ICD9: 780.79] Diagnosis: SINUSITIS, ACUTE[ICD9: 461.9] [facility]: 27889 05/31/2013 ([id number]) OFFICE/OUTPATIENT VISIT EST Diagnosis: HYPERLIPIDEMIA NEC/NOS[ICD9: 272.4] Diagnosis: HYPERTENSION[ICD9: 401.9] Diagnosis: B12 DEFIC ANEMIA NEC[ICD9: 281.1] Diagnosis: HYPOGLYCEMIA[ICD9: 251.2] Vikki MARTINEZ [facility] CPT-4: 07885 03/28/2013 OFFICE/OUTPATIENT VISIT EST Diagnosis: COUGH[ICD9: 786.2] Jessenia GUAMAN [facility] CPT-4: 90692 03/26/2013 OFFICE/OUTPATIENT VISIT EST Diagnosis: COUGH[ICD9: 786.2] Diagnosis: URI, ACUTE[ICD9: 465.9] Jessenia CID [facility] CPT-4: 61891 12/19/2012 ([id number]) OFFICE/OUTPATIENT VISIT EST Diagnosis: HYPERTENSION[ICD9: 401.9] Diagnosis: CEPHALGIA[ICD9: 784.0] Diagnosis: ANXIETY STATE NOS[ICD9: 300.00] Diagnosis: FLU VACCINE[ICD9: V04.81] Vikki MARTINO [facility] CPT-4: 86567 11/27/2012 ([id number]) OFFICE/OUTPATIENT VISIT EST Diagnosis: DIZZINESS/VERTIGO[ICD9: 780.4] Diagnosis: SINUSITIS, ACUTE[ICD9: 461.9] Diagnosis: Benign positional vertigo[ICD9: 386.11] [facility]: 41422 10/04/2012 OFFICE/OUTPATIENT VISIT EST Diagnosis: OTITIS MEDIA NOS[ICD9: 382.9] Vikki Ciscomikequinn GUAMAN [facility] CPT-4: 40118 07/27/2012 OFFICE/OUTPATIENT VISIT EST Diagnosis: Perforation of ear drum[ICD9: 384.20] Diagnosis: SINUSITIS, ACUTE[ICD9: 461.9] [facility]: 08485 07/14/2012 ([id number]) OFFICE/OUTPATIENT VISIT EST Diagnosis: Mastalgia[ICD9: 611.71] Vikki Deniz [facility] CPT-4: 81800 06/08/2012 ([id number]) OFFICE/OUTPATIENT VISIT EST Diagnosis: HYPERLIPIDEMIA NEC/NOS[ICD9: 272.4] Diagnosis: HYPERTENSION[ICD9: 401.9] Diagnosis: DIZZINESS/VERTIGO[ICD9: 780.4] Diagnosis: Hyperglycemia[ICD9: 790.29] Diagnosis: MALAISE AND FATIGUE[ICD9: 780.79] Vikki Ciscomichelle CARNEY Deidra RobertsSujata [facility]: 32379 02/23/2012 ([id number]) OFFICE/OUTPATIENT VISIT EST Diagnosis: EUSTACHIAN TUBE DYSFUNCTION[ICD9: 381.81] Diagnosis: DIZZINESS/VERTIGO[ICD9: 780.4] Diagnosis: ABDOMINAL PAIN[ICD9: 789.00] Diagnosis: GERD[ICD9: 530.81] Diagnosis: CERUMEN IMPACTION[ICD9: 380.4] Vikkikranthi PIKE Alejandra Sujata [facility]: 35743 02/22/2012 OFFICE/OUTPATIENT VISIT EST Diagnosis: ABDOMINAL PAIN[ICD9: 789.00] Diagnosis: DYSPEPSIA[ICD9: 536.8] Vikkikranthi PIKE AlejandraSujata CISCORUBI Rees [facility] CPT-4: 49031 12/28/2011 ([id number]) OFFICE/OUTPATIENT VISIT EST Diagnosis: ABDOMINAL PAIN[ICD9: 789.00] Diagnosis: DYSPEPSIA[ICD9: 536.8] Diagnosis: IBS[ICD9: 564.1] Vikki Ciscomichelle PIKE [facility]Sujata [facility]PT - 4: 65934 12/15/2011 OFFICE/OUTPATIENT VISIT EST Diagnosis: DIZZINESS/VERTIGO[ICD9: 780.4] Diagnosis: HYPOGLYCEMIA[ICD9: 251.2] Vikki PIKE AlejandraSujata CISCO MICHELLE [facility] CPT-4: 31467 09/21/2011 ([id number]) OFFICE/OUTPATIENT VISIT EST Diagnosis: URINARY TRACT INFECTION[ICD9: 599.0] Vikki BRAVO AlejandraSujata [facility]: 38568 09/16/2011 ([id number]) OFFICE/OUTPATIENT VISIT EST Diagnosis: HYPERLIPIDEMIA NEC/NOS[ICD9: 272.4] Diagnosis: HYPERTENSION[ICD9: 401.9] Diagnosis: MALAISE AND FATIGUE[ICD9: 780.79] Diagnosis: DIZZINESS/VERTIGO[ICD9: 780.4] Vikki GUAMAN [facility] CPT-4: 78066 09/15/2011 ([id number]) OFFICE/OUTPATIENT VISIT EST Diagnosis: DIZZINESS/VERTIGO[ICD9: 780.4] Diagnosis: MALAISE AND FATIGUE[ICD9: 780.79] Diagnosis: HYPERTENSION[ICD9: 401.9] Vikki MARTINEZ [facility] CPT-4: 86823 09/13/2011 OFFICE/OUTPATIENT VISIT EST Diagnosis: LUMB/LUMBOSAC DISC DEGEN[ICD9: 722.52] Diagnosis: Radiculopathy of leg[ICD9: 724.4] Diagnosis: 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] Diagnosis: SPINAL ENTHESOPATHY[ICD9: 720.1] Vikki GUAMAN [facility] CPT-4: 66209 08/16/2011 ([id number]) OFFICE/OUTPATIENT VISIT EST Diagnosis: PAIN, LOWER BACK[ICD9: 724.2] Diagnosis: SPASM OF MUSCLE[ICD9: 728.85] Diagnosis: SCIATICA[ICD9: 724.3] Diagnosis: Lumbar degenerative disc disease[ICD9: 722.52] Vikki GUAMAN [facility] CPT-4: 78950 08/03/2011 ([id number]) OFFICE/OUTPATIENT VISIT EST Diagnosis: PAIN IN THORACIC SPINE[ICD9: 724.1] Diagnosis: SPASM OF MUSCLE[ICD9: 728.85] Vikki GUAMAN [facility] CPT-4: 28436 07/26/2011 ([id number]) OFFICE/OUTPATIENT VISIT EST Diagnosis: PAIN, LOWER BACK[ICD9: 724.2] Diagnosis: SPASM OF MUSCLE[ICD9: 728.85] Diagnosis: Sacroiliac dysfunction[ICD9: 739.4] Diagnosis: Lumbar degenerative disc disease[ICD9: 722.52] Vikki GUAMAN [facility] CPT-4: 88422 06/28/2011 OFFICE/OUTPATIENT VISIT EST Diagnosis: MALAISE AND FATIGUE[ICD9: 780.79] Diagnosis: HYPOTENSION[ICD9: 458.9] Diagnosis: CAD[ICD9: 414.00] Vikki CIDER [facility] CPT-4: 52260 03/31/2011 OFFICE/OUTPATIENT VISIT EST Diagnosis: SINUSITIS, ACUTE[ICD9: 461.9] Diagnosis: PHARYNGITIS, ACUTE[ICD9: 462] Diagnosis: CERUMEN IMPACTION[ICD9: 380.4] Vikki MARTINONDER DO [facility] CPT-4: 98735 02/11/2011 OFFICE/OUTPATIENT VISIT EST Diagnosis: PAIN IN THORACIC SPINE[ICD9: 724.1] Diagnosis: GERD[ICD9: 530.81] Diagnosis: DIZZINESS/VERTIGO[ICD9: 780.4] Vikki MARTINONDER [facility] CPT-4: 49396 10/15/2010 OFFICE/OUTPATIENT VISIT EST Vikki MARTINO NDER DO [facility] CPT- 4: 11190 09/29/2010 ([id number]) OFFICE/OUTPATIENT VISIT EST Vikki PATHAK SSujata ORENDER [facility] CPT-4: 88196 07/02/2010 ([id number]) OFFICE/OUTPATIENT VISIT, EST Diagnosis: PAIN, LOWER BACK[ICD9: 724.2] Vikki PIKE SSujata ORENDER [facility] CPT-4: 51971 04/06/2010 ([id number]) OFFICE/OUTPATIENT VISIT, EST Vikki Deniz CRISOSTOMO S. ORENDER [facility] CPT-4: 74363 04/01/2010 ([id number]) OFFICE/OUTPATIENT VISIT, EST Vikkikranthi CRISOSTOMO S. ORENDER [facility] CPT-4: 78668 01/22/2010 ([id number]) OFFICE/OUTPATIENT VISIT, EST Vikki Ciscomikequinn CAIO KRANTHI S. ORENDER [facility] CPT-4: 29207 12/02/2009 ([id number]) OFFICE/OUTPATIENT VISIT, EST Vikki Ciscomikequinn CAIO KRANTHI S. [facility]ER [facility] CPT-4: 76672 10/21/2009 ([id number]) OFFICE/OUTPATIENT VISIT, EST Vikkiluther GUAMAN DO [employer] CPT-4: 05346 09/10/2009 ([id number]) OFFICE/OUTPATIENT VISIT, EST Vikki GUAMAN DO [employer] CPT-4: 56159 08/11/2009 ([id number]) OFFICE/OUTPATIENT VISIT, EST Vikki GUAMAN DO [employer] CPT-4: 65510 06/09/2009 Plan of Care Planned Activity Notes Codes Status Date Visit Diagnosis Plan: Essential (primary) hypertension Discussion: Improving with higher dose of metoprolol Recheck 2weeks ICD-9 : 401.9 ICD-10 : I10 03/20/2019 Visit Diagnosis Plan: Palpitations Discussion: Continu e higher dose of metoprolol ICD-9 : 785.1 ICD-10 : R00.2 03/20/2019 Appointment: Vikki Guaman WPtel: [address] [place], [place] [phone] FOLLOW UP 03/20/2019 Appointment: Vikki Guaman WPtel: [address] [place], [place] [phone] 03/13/2019--moved up to [facility] 03/13/19 at 4pm (km) [place] [facility] 03/15/2019 Visit Diagnosis Plan: Palpitations Discussion: Check C BC, CMP, TSH ICD-9 : 785.1 ICD-10 : R00.2 03/13/2019 Visit Diagnosis Plan: Essential hypertension Discussio n: Increase metoprolol to 25mg q AM and 50mg po q pM Recheck 1 week ICD-9 : 401.9 ICD-10 : I10 03/13/2019 Appointment: Vikki Guaman WPtel: [address] [place], [place] [phone] BP CHECK 03/13/2019 Appointment: Vikki Guaman WPtel: [address] [place], [place] [phone] ACUTE ILLNESS 03/13/2019 Patient Education: metoprolol tartrate- [employer] [facility] [id number] [email or web address] Completed 03/13/2019 Care Plan: X-RAY EXAM NECK SPINE 4/5VWS LOINC : 35419-5 Pending 03/13/2019 Care Plan: X-RAY EXAM THORAC SPINE4/>VW LOINC : 21950-4 Pending 03/13/2019 Appointment: Vikki Guaman WPtel: [address] [place] [address] LAB 01/23/2019 Appointment: Vikki Guaman WPtel: [address] [place] [address] US INJECTION 12/26/2018 Patient Education: INFLUENZA VACCINE [facility] Completed 12/26/2018 Appointment: Vikki Guaman WPtel: [address] [place] [address] LAB 12/15/2018 Visit Diagnosis Plan: Acute serous [...] ICD-10 : H65.02 11/07/2018 Appointment: Jennifer Rosario [address] [place] [address] ACUTE ILLNESS 11/07/2018 Visit Diagnosis Plan: Urinary [...] : R53.83 08/14/2018 Appointment: Vikki Guaman WPtel: [address] [place], [place] [phone] US FOLLOW UP 08/14/2018 Visit Diagnosis Plan: [...] : K21.9 05/10/2018 Appointment: Vikki Guaman WPtel: [address] [place], [place] [phone] [place] FOLLOW UP 05/10/2018 Patient Education: metoprolol tartrate- [employer] [facility] [id number] [email or web address] Completed 05/10/2018 Appointment: Vikki Guaman WPtel: [address] [place], [place] [phone] [place] CANCELED 04/21/2018 Visit Diagnosis Plan: Gastro-esophageal reflux disease without esophagitis Discussion: Continue protonix and carafate Proceed with updated EGD ICD-9 : 530.81 ICD-10 : K21.9 02/14/2018 Visit Diagnosis Plan: Epigastric pain Discussion: [facility] CT abdomen/pelvis due to ongoing abdominal pain ICD-9 : 789.06 ICD-10 : R10.13 02/14/2018 Appointment: Vikki Guaman WPtel: [address] [place], [place] [phone] US FOLLOW UP 02/14/2018 Care Plan: CT PELVIS W/O DYE LOINC : 361 08-9 Pending 02/14/2018 Care Plan: CT ABDOMEN W/O DYE LOINC : 36 103-0 Pending 02/14/2018 Care Plan: Referral Order SNOMED-CT : [id number] Pending 02/14/2018 Visit Diagnosis Plan: Atherosclerotic he art disease of coushatta coronary artery without angina pectoris Discussion: S/P [...] I10 01/10/2018 [facility]ment[facility] [phone] [facility] [facility] 01/10/2018 Visit Diagnosis Plan: [...] : R00.2 12/06/2017 Appointment: [facility] [phone] [facility] [facility] 12/06/2017 Patient Education: Patient Medication Summary Completed 12/06/2017 Appointment: Vikki Guaman WPtel: [facility] LAB 11/30/2017 Patient Education: Patient Medication Summary [...] : F41.1 11/22/2017 Appointment: Vikki Guaman WPtel: [facility] [address] FOLLOW UP 11/22/2017 Patient Education: Patient Medication [...] : K21.9 10/20/2017 Appointment: Vikki Guaman WPtel: [phone] [facility] ACUTE ILLNESS 10/20/2017 Patient Education: Patient Medication Summary Completed 10/20/2017 Visit Diagnosis Plan: Dizziness and giddiness Discussi on: blood work to be completed in office including cmp, cbc, troponin to rule out glucose intolerance, infection, dehydration. instructed patient that she needs to see her it admin sooner than oct and patient requested we contact dr. brown's office. will have front office make appt. patient has carotid doppler annually. ICD-9 : 780.4 ICD-10 : R42 09/27/2017 Appointment: Jennifer Rosario [address] [place] [address] ACUTE ILLNESS 09/27/2017 Patient Education: Patient Medication Summary Completed 09/27/2017 Visit Diagnosis Plan: Cervicalgia Discussion: Complete course of PT since symptoms improved Continue stretching exercises Notify if symptoms return or worsen ICD-9 : 723.1 ICD-10 : M54.2 08/16/2017 Appointment: Vikki Guaman WPtel: [address] [place] [address] FOLLOW UP 08/16/2017 Patient Education: Patient Medication [...] : H81.43 07/07/2017 Appointment: Vikki Guaman WPtel: [address] [place], [place] [phone] 07/07/2017 Patient Education: Patient Medication Summary Completed 07/07/2017 Care Plan: MRI NECK SPINE W/O DYE LOINC : 32010-2 Pending 07/07/2017 Visit Diagnosis Plan: Otalgia, bilateral [...] ICD-10 : H81.13 05/30/2017 Appointment: Jennifer Rosario [address] [place] [address] ACUTE ILLNESS 05/30/2017 Patient Education: Patient Medication [...] : M54.17 04/18/2017 Appointment: Vikki Guaman WPtel: [address] [place] [address] ACUTE ILLNESS 04/18/2017 Patient Education: Patient Medication Summary Completed 04/18/2017 Appointment: Vikki Guaman WPtel: [address] [place] [address] US INJECTION 12/10/2016 Patient Education: Patient Medication Summary Completed 12/10/2016 Appointment: Vikki Guaman WPtel: [address] [place] [address] US LAB 11/01/2016 Patient Education: Patient Medication [...] : M51.36 10/25/2016 Appointment: Vikki Guaman WPtel: [address] [place] [address] FOLLOW UP 10/25/2016 Patient Education: Patient Medication [...] : R10.32 09/20/2016 Appointment: Vikki Guaman WPtel: [address] [place], [place] [phone] ACUTE ILLNESS 09/20/2016 Patient Education: Patient Medication Summary Completed 09/20/2016 Appointment: Vikki Guaman WPtel: [address] [place], [place] [phone] [place] LAB 05/13/2016 Patient Education: Patient Medication [...] : N64.4 05/12/2016 Appointment: Vikki Guaman WPtel: [address] [place], [place] [phone] US 05/11 confirmed `sl ACUTE ILLNESS 05/12/2016 Patient Education: Patient Medication Summary Completed 05/12/2016 Care Plan: MAMMOGRAM SCREENING LOINC : 2 6347-5 Pending 05/12/2016 Visit Diagnosis Plan: Acute upper respiratory infectio n, unspecified Discussion: Exam is reassuring Likely viral illness Supportive care reviewed and encouraged Follow up PRN ICD-9 : 465.9 ICD-10 : J06.9 03/18/2016 Appointment: Griffin Yue [address] [place] [address] ACUTE ILLNESS 03/18/2016 Patient Education: Patient Medication Summary Completed 03/18/2016 Visit Plan: Supportive care. Rest, Fluid s, Tylenol/Motrin prn fever or bodyaches. Notify if worsening symptoms. 02/06/2016 Appointment: Vikki Guaman WPtel: [address] [place] [address] ACUTE ILLNESS 02/06/2016 Patient Education: Patient Medication Summary Completed 02/06/2016 Appointment: Vikki Guaman WPtel: [address] [place] [address] INJECTION 12/12/2015 Patient Education: Patient Medication Summary Completed 12/12/2015 Appointment: Vikki Guaman WPtel: [address] [place] [address] LAB 11/25/2015 Patient Education: Patient Medication Summary Completed 11/25/2015 Visit Plan: Add miralax daily Use daily probiotic and metamucil and push fluids Notify if worsens/persists 08/26/2015 Appointment: Vikki Guaman WPtel: [address] [place] [address] 08/25/15 confirmed ~sl ACUTE ILLNESS 08/26/2015 Patient Education: Patient Medication Summary Completed 08/26/2015 Visit Plan: No NSAIDs Kidney function di scussed Discussed hydration Monitor lab every 4months so will check CMP, HbA1C next month 05/21/2015 Appointment: Vikki Guaman WPtel: [address] [place] [address] 05/19 confirmed ~sl ACUTE ILLNESS 05/21/2015 Patient Education: Patient Medication Summary Completed 05/21/2015 Visit Plan: Vestibular exercises Refill flonase Strict low Na diet--discussed that needs to read labels Rx for walker with chair given due to muscle weakness/unsteadiness Has carotids and abdominal aorta and legs checked in March Check Chem 7 02/19/2015 Appointment: Vikki Guaman WPtel: [address] [place] [address] 02/18/15 appt confirmed cn FOLLOW UP 02/19 Patient Education: Patient Medication Summary Completed 02/19/2015 Patient Education: Vertigo Completed 1 04/22/2014 Appointment: Vikki Guaman WPtel: [address] [place] [address] INJECTION 12/20/2014 Patient Education: Patient Medication Summary Completed 12/20/2014 Appointment: iVkki Guaman WPtel: [address] [place] [address] UA 11/19/2014 Patient Education: Patient Medication Summary Completed 11/19/2014 Referral: Edy Cheek WPtel: [address] Referral Completed 11/18/2014 Appointment: Vikki Guaman WPtel: [address] [place] [address] LAB 11/14/2014 Patient Education: Patient Medication Summary Completed 11/14/2014 Visit Plan: Check CMP, CBC, TSH, Free T4 , B12, Lipids, HbA1C Discussed 6 small meals a day each with protein Would likely benefit from antidepressant Update colonoscopy 11/13/2014 Appointment: Vikki Guaman WPtel: [address] [place], [place] [phone] 11/12/14 confirmed ACUTE ILLNESS 11/13/2014 Patient Education: Patient Medication Summary Completed 11/13/2014 Visit Plan: Cerumen flush with warm wate r and peroxide - good results Resume Nasonex nasal spray daily Recommended Debrox earwax removal drops 09/27/2014 Appointment: Jessenia Francis WPtel: [address] [place] [address] ACUTE ILLNESS 09/27/2014 Patient Education: Patient Medication Summary Completed 09/27/2014 Visit Plan: Continue aspirin daily Add m eloxicam for 1week Elevate and Ice Call on Tuesday07/11/2014 Appointment: Vikki Guaman WPtel: [address] [place], [place] [phone] ACUTE ILLNESS 07/11/2014 Patient Education: Patient Medication Summary Completed 07/11/2014 Visit Plan: Been using baclofen at [facility] and has helped some PT for next 2-4weeks 05/23/2014 Appointment: Vikki Guaman WPtel: [address] [place], [place] [phone] [place] [address] Follow Up 05/23/2014 Patient Education: Patient Medication Summary Completed 05/23/2014 Appointment: Vikki Guaman WPtel: [address] [place], [place] [phone] [place] [address] 05/10/2014 Appointment: Vikki Guaman WPtel: [address] [place] [address] feeling better, weather - FOLLOW UP 04/07 Referral: Edy Cheek WPtel: [address] [facility] [address] Referral Appointment Requested 04/03/2014 Visit Plan: Continue exercise and curren t meds See surgery for removal of right arm lesion 03/20/2014 Appointment: Vikki Guaman WPtel: [address] [place], [place] [phone] FOLLOW UP 03/20/2014 Patient Education: Patient Medication Summary Completed 03/20/2014 Appointment: Vikki Guaman WPtel: [address] [place], [place] [phone] [place] INJECTION 12/21/2013 Patient Education: Patient Medication Summary Completed 12/21/2013 Appointment: Jessenia Francis WPtel: [address] [place], [place] [phone] ACUTE ILLNESS 10/17/2013 Patient Education: Patient Medication Summary Completed 10/17/2013 Visit Plan: Discussed that likely lumbar etiology for leg weakness Will change amlodopine to low dose dyazide and see if helps legs and inner ear 09/24/2013 Appointment: Vikki Guaman WPtel: [address] [place] [address] FOLLOW UP 09/24/2013 Patient Education: Patient Medication Summary Completed 09/24/2013 Visit Plan: Ceftin and continue claritin /flonase Decrease amlodopine to 2.5mg q HS until fwup with Card due to weakness 05/31/2013 Appointment: Vikki Guaman WPtel: [address] [place] [address] ACUTE ILLNESS 05/31/2013 Patient Education: Patient Medication Summary Completed 05/31/2013 Appointment: Vikki Guaman WPtel: [address] [place] [address] LAB 03/28/2013 Patient Education: Patient Medication Summary Completed 03/28/2013 Appointment: Jessenia Francis WPtel: [address] [place] [address] ACUTE ILLNESS 03/26/2013 Patient Education: Patient Medication Summary Completed 03/26/2013 Visit Plan: Supportive care. Rest, Fluid s, Tylenol prn fever or bodyaches. Notify if worsening symptoms. Ceftin 12/19/2012 Appointment: Jessenia Francis WPtel: [address] [place] [address] ACUTE ILLNESS 12/19/2012 Patient Education: Patient Medication Summary Completed 12/19/2012 Appointment: Vikki Guaman WPtel: [address] [place] [address] BP CHECK 12/04/2012 Patient Education: Patient Medication Summary Completed 12/04/2012 Appointment: Vikki Guaman WPtel: [address] [place], [place] [phone] ER Follow UP 11/27/2012 Patient Education: Patient Medication Summary Completed 11/27/2012 Visit Plan: Restart flonase BID Use mecl izine 25mg q HS Vestibular exercises Claritin 10mg q AM See ENT if doesn't resolve 10/04/2012 Appointment: Vikki Guaman WPtel: [address] [place], [place] [phone] ACUTE ILLNESS 10/04/2012 Patient Education: Patient Medication Summary Completed 10/04/2012 Visit Plan: Will continue to observe 07/27/2012 Appointment: Vikki Guaman WPtel: [address] [place], [place] [phone] FOLLOW UP 07/27/2012 Patient Education: Patient Medication [...] ear recheck. 07/14/2012 Appointment: Evelyn Santos WPtel: [address] [place] [address] ACUTE ILLNESS 07/14/2012 Patient Education: Patient Medication Summary Completed 07/14/2012 Visit Plan: Decrease caffeine intake Kristin ck Bilateral Mammogram with US of left breast 06/08/2012 Appointment: Vikki Guaman WPtel: [address] [place], [place] [phone] ACUTE ILLNESS 06/08/2012 Patient Education: Patient Medication Summary Completed 06/08/2012 Appointment: Alisia Campbell WPtel: [address] [place], [place] [phone] appt scheduled 04/06 ACUTE ILLNESS 04/10/2012 Appointment: Vikki Guaman WPtel: [address] [place], [place] [phone] US LAB 02/23/2012 Patient Education: Patient Medication Summary Completed 02/23/2012 Visit Plan: Continue off carafate and se e how does Continue probiotic Add Vestibular exercises and use meclizine prn Continue Nasonex Check fasting lab including CMP, Lipids, CBC, TSH, Free T4, HbA1C 02/22/2012 Appointment: Vikki Guamantel: [address] [place] [address] FOLLOW UP 02/22/2012 Patient Education: Patient Medication Summary Completed 02/22/2012 Visit Plan: Continue carafate for 4more weeks at current dose then decrease to BID for 2wks then q HS 12/28/2011 Appointment: Vikki Guaman WPtel: [address] [place] [address] FOLLOW UP 12/28/2011 Patient Education: Patient Medication Summary Completed 12/28/2011 Visit Plan: Continue omeprazole Add Judi fate 1gm po q AC Add daily probiotic 12/15/2011 Appointment: Vikki Guaman WPtel: [address] [place] [address] ACUTE ILLNESS 12/15/2011 Patient Education: Patient Medication Summary Completed 12/15/2011 Appointment: Vikki Guamantel: [address] [place] [address] INJECTION 12/02/2011 Patient Education: Patient Medication Summary Completed 12/02/2011 Visit Plan: Diabetic Diet Accuchecks BID alternating times Hold onglyza and Januvia for now and continue diet and exercise and weight loss and moniter BS Discussed hypoglycemia and snack of peanut butter and crackers with juice or milk 09/21/2011 Appointment: Vikki Guamantel: [address] [place], [place] [phone] WORK IN 09/21/2011 Patient Education: Patient Medication Summary Completed 09/21/2011 Appointment: Vikki Guaman WPtel: [address] [place] [phone] [facility] 09/16/2011 Patient Education: Patient Medication Summary Completed 09/16/2011 Appointment: Vikki Guaman WPtel: [address] [place], [place] [phone] [place] LAB 09/15/2011 Patient Education: Patient Medication Summary Completed 09/15/2011 Appointment: Vikki Guaman WPtel: [address] [place], [place] [phone] ACUTE ILLNESS 09/13/2011 Patient Education: Patient Medication Summary Completed 09/13/2011 Visit Plan: Injection to Right SI joint as above Pt will call in 3 days on pain Has PT starting in 2wks. 08/16/2011 Appointment: Vikki Guaman WPtel: [address] [place] [address] ACUTE ILLNESS 08/16/2011 Patient Education: Patient Medication Summary Completed 08/16/2011 Visit Plan: OMT done Start PT May need u pdated MRI if need to consider epidural Prednisone 08/03/2011 Appointment: Vikki Guaman WPtel: [address] [place] [address] OMT 08/03/2011 Patient Education: Patient Medication Summary Completed 08/03/2011 Visit Plan: Flexeril and Vimovo OMT done Daily stretches 07/26/2011 Appointment: Vikki Guaman WPtel: [address] [place] [address] ACUTE ILLNESS 07/26/2011 Patient Education: Patient Medication Summary Completed 07/26/2011 Visit Plan: OMT done Daily stretches Roque st heat or biofreeze Right SI joint injection Call in 1week Vimovo BID 06/28/2011 Appointment: Vikki Guaman WPtel: [address] [place] [address] ACUTE ILLNESS 06/28/2011 Patient Education: Patient Medication Summary Completed 06/28/2011 Appointment: Vikki Guaman WPtel: [address] [place], [place] [phone] [place] LAB 04/01/2011 Patient Education: Patient Medication Summary Completed 04/01/2011 Visit Plan: Decrease amlodopine to 1.25m g daily Schedule with Cardiology Fasting lab in AM 03/31/2011 Appointment: Vikki Guamantel: [address] [place] [address] ACUTE ILLNESS 03/31/2011 Patient Education: Patient Medication Summary Completed 03/31/2011 Visit Plan: Saline nasal flushes prn. Ty lenol/Motrin prn headache. Notify if persists/symptoms worsening. Cerumen removal from ears as above 02/11/2011 Appointment: Vikki Guaman WPtel: [address] [place] [address] ACUTE ILLNESS 02/11/2011 Patient Education: Patient Medication Summary Completed 02/11/2011 Appointment: Vikki Guamantel: [address] [place] [address] US INJECTION 12/09/2010 Patient Education: Patient Medication Summary Completed 12/09/2010 Visit Plan: Continue vimovo for 1more we ek Increase Omeprazole to BID for 1mo then resume QD if stomach improved Vestibular exercises with meclizine q HS for next week 10/15/2010 Appointment: Vikki Guamantel: [address] [place] [address] FOLLOW UP 10/15/2010 Patient Education: Patient Medication Summary Completed 10/15/2010 Appointment: Vikki Guamantel: [address] [place] [address] ACUTE ILLNESS 09/29/2010 Patient Education: Patient Medication Summary Completed 09/29/2010 Appointment: Vikki Guamantel: [address] [place] [address] LAB 07/06/2010 Patient Education: Patient Medication Summary Completed 07/06/2010 Visit Plan: Saline nasal flushes prn. Ty lenol/Motrin prn headache. Notify if persists/symptoms worsening. Add Veramyst Increase Omeprazole to 20mg po BID 07/02/2010 Appointment: Vikki Guamanl: [address] [place], [place] [phone] ACUTE ILLNESS 07/02/2010 Patient Education: Patient Medication Summary Completed 07/02/2010 Appointment: Vikki Guaman WPtel: [address] [place], [place] [phone] FOLLOW UP 04/06/2010 Patient Education: Patient Medication Summary Completed 04/06/2010 Appointment: Vikki Guaman WPtel: [address] [place], [place] [phone] ACUTE ILLNESS 04/01/2010 Patient Education: Patient Medication Summary Completed 04/01/2010 Visit Plan: Nasocourt sample given. Pt. will notify if symptoms are worse on Tuesday. 01/22/2010 Appointment: Alisia Campbell WPtel: [address] [place] [address] ACUTE ILLNESS 01/22/2010 Patient Education: Patient Medication Summary Completed 01/22/2010 Appointment: Vikki Guaman WPtel: [address] [place], [place] [phone] [place] INJECTION 12/10/2009 Patient Education: Patient Medication Summary Completed 12/10/2009 Appointment: Vikki Guaman WPtel: [address] [place] [address] FOLLOW UP 12/02/2009 Patient Education: Patient Medication Summary Completed 12/02/2009 Patient Education: Lexapro Completed 0 12/02/2009 Visit Plan: May proceed with hiatal ryan ia repair per Card. so will contact Dr. Mariscal's office to proceed with surgery Trial of Lexapro 5mg QD plus use xanax prn 10/21/2009 Appointment: Vikki Guaman WPtel: [address] [place], [place] [phone] FOLLOW UP 10/21/2009 Patient Education: Patient Medication Summary Completed 10/21/2009 Visit Plan: B12 given Cont oral B12 and iron Fwup 1mo for B12 Proceed with hiatal hernia repair once card clearance 09/10/2009 Appointment: Vikki Guaman WPtel: [address] [place] [address] FOLLOW UP 09/10/2009 Patient Education: Patient Medication Summary Completed 09/10/2009 Appointment: Vikki Guaman WPtel: [address] [place], [place] [phone] FOLLOW UP 08/11/2009 Patient Education: Patient Medication Summary Completed 08/11/2009 Appointment: Vikki Guaman WPtel: [address] [place], [place] [phone] US LAB 06/10/2009 Patient Education: Patient Medication Summary Completed 06/10/2009 Visit Plan: Check fasting lab in AM--CMP ,Lipids, CBC, Vit D, TSH,FreeT4, B12 06/09/2009 Appointment: Vikki Guaman WPtel: [address] [place] [address] FOLLOW UP 06/09/2009 Patient Education: Patient Medication Summary Completed 06/09/2009 Referral: Edy Cheek WPtel: #[address] Referral Appointment Requested Referral: Edy Cheek WPtel: #[address] Referral Initiated Instructions Comment . Supportive [...]
--- OUTSIDE RECORDS SUMMARY | 2019-04-25 20:23 | XMS REPORT | CCD ---
Author Author Evelyne Guaman D.O. Organization [facility] Address [address] [place] [address] Phone Care Team Providers Care Endodontic Assistant Name Role Phone Vikki Guaman D.O. PP Unavailable CCM Unavailable Summary Purpose Interface Exchange Insurance Providers Payer name Policy type / Coverage type Covered constitution party ID Effective Begin Date Effective End Date WPS MEDICARE PART B [place] Medicare Part B [id number] 2017 Unknown Aetna [facility] Medicare Part B [id number] Unknown Family history Father Diagnosis Age At Onset Heart disease Unknown Mother Diagnosis Age At Onset Heart disease Unknown Cancer Unknown Social History Social History Element Codes Description Effective Dates Tobacco history SNOMED CT: 995655498 Never smoker 09/29/2010 Marital status Unknown Single [...] R10.13 11/22/2017 Active 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: [...] Start Date Stop Date Status Fill Instructions omeprazole 40 mg capsule,delayed release RxNorm: 306955 1 Capsu le(s) Oral QD 03/27/2019 12/22/2019 Active Xanax 0.25 mg tablet RxNorm: 665578 TAKE 1 TABLET BY [facility] TWICE DAILY 1 Tablet(s) Oral two times a day as needed as needed for anxiety 03/27/2019 03/27/2019 Inactive simvastatin 40 mg tablet RxNorm: 229747 1 Tablet(s) Oral QD 020 12/22/2019 Active metoprolol tartrate 25 mg tablet RxNorm: 047816 1 Table t(s) Oral QAM and two tablets (50mg) in the evening 03/27/2019 06/25/2019 Active metoprolol tartrate 25 mg tablet RxNorm: 822735 1 Table t(s) Oral QAM and two tablets (50mg) in the evening 03/20/2019 03/26/2019 Inactive Flonase Allergy Relief 50 mcg/actuation nasal spray,suspensi on RxNorm: 2158981 2 [place] Nasal every night at bedtime 03/13/2019 03/13/2019 Inactive simvastatin 40 mg tablet RxNorm: 463412 1 Tablet(s) PO QD 01/22/2019 03/26/2019 Inactive omeprazole 40 mg capsule,delayed release RxNorm: 510197 1 Capsu le(s) Oral QD 01/10/2019 03/26/2019 Inactive Xanax 0.25 mg tablet RxNorm: 880229 TAKE 1 TABLET BY MOUTH TWIC E DAILY 01/02/2019 03/26/2019 Inactive omeprazole 40 mg capsule,delayed release RxNorm: 732803 1 Capsu le(s) PO QD 12/11/2018 01/09/2019 Inactive metoprolol tartrate 25 mg tablet RxNorm: 018260 1 Tablet(s) PO BID 11/20/2018 03/19/2019 Inactive omeprazole 40 mg capsule,delayed release RxNorm: 254296 1 Capsu le(s) PO QD 11/13/2018 12/10/2018 Inactive Flonase Allergy Relief 50 mcg/actuation nasal spray,suspensi on RxNorm: 3277815 2 [place] NASAL QHS 11/07/2018 03/12/2019 Inactive simvastatin 40 mg tablet RxNorm: 949196 1 Tablet(s) PO QD 10/23/2018 01/20/2019 Inactive simvastatin 40 mg tablet RxNorm: 967994 1 Tablet(s) PO QD 07/24/2018 10/21/2018 Inactive omeprazole 40 mg capsule,delayed release RxNorm: 395293 1 Capsu le(s) PO QD 07/13/2018 11/09/2018 Inactive simvastatin 40 mg tablet RxNorm: 101516 1 Tablet(s) PO QD 06/13/2018 07/12/2018 Inactive omeprazole 40 mg capsule,delayed release RxNorm: 224619 1 Capsu le(s) PO QD 06/13/2018 07/12/2018 Inactive Bactrim DS 800 mg-160 mg tablet RxNorm: 838928 1 Tablet(s) PO BID 0 05/12/2018 05/18/2018 Inactive Bactrim DS 800 mg-160 mg tablet RxNorm: 715008 1 Tablet(s) PO BID 0 05/12/2018 05/11/2018 Inactive Macrobid 100 mg capsule RxNorm: 022926 1 Capsule(s) PO BID 05/11/1905/16/2018 Inactive metoprolol tartrate 25 mg tablet RxNorm: 537389 1 Tablet(s) PO BID 05/10/2018 11/05/2018 Inactive Xanax 0.25 mg tablet RxNorm: 572965 TAKE 1 TABLET BY MOUTH TWIC E DAILY 02/16/2018 01/01/2019 Inactive Xanax 0.25 mg tablet RxNorm: 922061 1 Tablet(s) PO BID 02/14/2018 Inactive Protonix 40 mg tablet,delayed release RxNorm: 539825 1 Tablet(s) PO BID for stomach--replaces omeprazole 01/10/2018 05/09/2018 Inactive Carafate 1 gram tablet RxNorm: 910244 1 Tablet(s) PO AC & HS 201705/09/2018 Inactive Xanax 0.25 mg tablet RxNorm: 631045 1 Tablet(s) PO BID 01/03/201812/2017 Inactive Bactrim DS 800 mg-160 mg tablet RxNorm: 962924 1 Tablet(s) PO BID 1 12/12/2017 Inactive Bactrim DS 800 mg-160 mg tablet RxNorm: 777099 1 Tablet(s) PO BID 1 12/07/2017 Inactive Carafate 1 gram tablet RxNorm: 747451 1 Tablet(s) PO AC & HS 201712/21/2017 Inactive Protonix 40 mg tablet,delayed release RxNorm: 025668 1 Tablet(s) PO BID for stomach--replaces omeprazole 11/22/2017 01/09/2018 Inactive Protonix 40 mg tablet,delayed release RxNorm: 590726 1 Tablet(s) PO BID for stomach--replaces omeprazole 10/20/2017 11/21/2017 Inactive fluticasone 50 mcg/actuation nasal spray,suspension RxNorm: 7265121 2 [place] NASAL QD to each nostril 07/07/2017 08/13/2018 Inactive Nasonex 50 mcg/actuation Holmes RxNorm: 7260733 2 [place] NASAL 201707/07/2017 Inactive omeprazole 40 mg capsule,delayed release RxNorm: 392556 1 Capsu le(s) PO QD 04/18/2017 10/19/2017 Inactive simvastatin 40 mg tablet RxNorm: 043364 1 Tablet(s) PO QD TAKE 1 TABLET EVERY DAY 04/18/2017 04/12/2018 Inactive metoprolol tartrate 25 mg tablet RxNorm: 412528 1/2 Tablet(s) PO QD 04/18/2017 01/09/2018 Inactive simvastatin 40 mg tablet RxNorm: 271873 Tablet(s) TAKE 1 TABLET EVERY DAY 10/27/2016 04/17/2017 Inactive metoprolol tartrate 25 mg tablet RxNorm: 034591 1/2 Tablet(s) PO QD 09/20/2016 03/18/2017 Inactive Flonase 50 mcg/actuation nasal spray,suspension RxNorm: 1797 933 2 [place] NASAL BID 09/20/2016 04/17/2017 Inactive omeprazole 40 mg capsule,delayed release RxNorm: 529930 1 Capsu le(s) PO QD 09/08/2016 04/17/2017 Inactive metoprolol tartrate 25 mg tablet RxNorm: 455907 1/2 Tablet(s) PO QD 06/14/2016 09/19/2016 Inactive ciprofloxacin 0.2 % ear drops in a dropperette RxNorm: 23412 6 4 Drop(s) OTIC TID for 1 week 02/06/2016 05/11/2016 Inactive cefdinir 300 mg capsule RxNorm: 767417 2 Capsule(s) PO QD 02/06/2016 02/15/2016 Inactive omeprazole 40 mg capsule,delayed release RxNorm: 673397 TAKE 1 CAPSULE EVERY DAY 11/06/2015 09/08/2016 Inactive simvastatin 40 mg tablet RxNorm: 415353 TAKE 1 TABLET EVERY DAY 05/201510/27/2016 Inactive Flonase 50 mcg/actuation nasal spray,suspension RxNorm: 1797 933 2 [place] NASAL BID 02/19/2015 09/19/2016 Inactive cefuroxime axetil 250 mg tablet RxNorm: 712563 1 Tablet(s) PO BID 0 11/21/2014 11/20/2014 Inactive cefuroxime axetil 250 mg tablet RxNorm: 289164 1 Tablet(s) PO BID 0 11/21/2014 11/27/2014 Inactive omeprazole 40 mg capsule,delayed release RxNorm: 175222 1 Capsu le(s) PO QD 10/09/2014 01/05/2015 Inactive meloxicam 7.5 mg tablet RxNorm: 180658 1 Tablet(s) PO QD 07/11/2014 0 08/09/2014 Inactive loratadine 10 mg tablet RxNorm: 374989 1 Tablet(s) PO QAM for a llergies 10/17/2013 08/13/2018 Inactive Flonase 50 mcg/actuation nasal spray,suspension RxNorm: 8963 23 2 [place] NASAL BID 10/17/2013 02/18/2015 Inactive prednisone 20 mg tablet RxNorm: 116912 2 Tablet(s) PO BID 10/17/2013 10/21/2013 Inactive Dyazide 37.5 mg-25 mg capsule RxNorm: 819337 1 Capsule(s) PO QAM 10/16/2013 Inactive Ceftin 500 mg tablet RxNorm: 162756 1 Tablet(s) PO BID 05/31/201307/2013 Inactive Ceftin 500 mg tablet RxNorm: 224943 1 Tablet(s) PO BID 03/26/2013 Inactive simvastatin 40 mg tablet RxNorm: 964085 Tablet(s) PO TA KE ONE TABLET BY MOUTH EVERY DAY 03/26/2013 10/07/2015 Inactive metoprolol tartrate 25 mg tablet RxNorm: 041098 Tablet( s) PO TAKE ONE-HALF TABLET BY MOUTH EVERY DAY 03/26/2013 11/12/2014 Inactive Ceftin 500 mg tablet RxNorm: 291541 1 Tablet(s) PO BID 12/19/2012 Inactive loratadine 10 mg tablet RxNorm: 443859 1 Tablet(s) PO QAM for a llergies 10/04/2012 12/02/2012 Inactive omeprazole 20 mg capsule,delayed release RxNorm: 272750 Capsule(s) PO TAKE ONE CAPSULE BY MOUTH TWICE DAILY 08/09/2012 10/08/2014 Inactive omeprazole 20 mg capsule,delayed release RxNorm: 125937 1 Capsu le(s) PO BID 08/09/2012 05/09/2018 Inactive Augmentin 875 mg-125 mg tablet RxNorm: 927018 1 Tablet(s) PO Q12H 0 07/14/2012 07/23/2012 Inactive Floxin Otic Drops 1 bottle Drops RxNorm: 5 Drop(s) OTIC BID 07/20/2012 Inactive metoprolol tartrate 25 mg tablet RxNorm: 986653 Tablet( s) PO TAKE ONE-HALF TABLET BY MOUTH EVERY DAY 04/11/2012 03/25/2013 Inactive simvastatin 40 mg tablet RxNorm: 321314 Tablet(s) PO TA KE ONE TABLET BY MOUTH EVERY DAY 04/11/2012 03/25/2013 Inactive lancets RxNorm: Misc Miscellaneous USE ONE TO CH JEFFERY GLUCOSE EVERY DAY 04/04/2012 05/09/2018 Inactive Carafate 1 gram tablet RxNorm: 026218 1 Tablet(s) PO AC & HS 201111/12/2014 Inactive Flagyl 500 mg tablet RxNorm: 385983 1 Tablet(s) PO TID 12/15/2011 Inactive Carafate 1 gram tablet RxNorm: 171423 1 Tablet(s) PO AC & HS 201102/12/2012 Inactive One Touch Test strips RxNorm: Miscellaneous QD 09/21/2011 05/09/2018 Inactive one touch ultra mini test strips Protonix 40 mg Tab RxNorm: 847461 1 Tablet(s) PO QD 09/13/20112011 Inactive Protonix 40 mg Tab RxNorm: 548021 1 Tablet(s) PO QD 09/13/20112011 Inactive prednisone 20 mg Tab RxNorm: 780444 1 Tablet(s) PO BID 08/03/201106/2011 Inactive Flexeril 5 mg Tab RxNorm: 305714 1 Tablet(s) PO QHS for spasm 07/2508/24/2011 Inactive Flexeril 5 mg Tab RxNorm: 944003 1 Tablet(s) PO QHS for spasm 06/2707/25/2011 Inactive amlodipine 2.5 mg Tab RxNorm: 834439 1/2 Tablet(s) PO QD replac es 5mg dose 03/31/2011 06/27/2011 Inactive simvastatin 40 mg tablet RxNorm: 686590 1 Tablet(s) PO QD 03/31/2011 03/24/2012 Inactive metoprolol tartrate 25 mg tablet RxNorm: 929106 1/2 Tablet(s) PO QD 03/31/2011 03/24/2012 Inactive omeprazole 20 mg capsule,delayed release RxNorm: 216637 1 Capsu le(s) PO BID 03/31/2011 09/12/2011 Inactive cefdinir 300 mg Cap RxNorm: 934961 2 Capsule(s) PO QD 02/11/201102/04 Inactive simvastatin 40 mg Tab RxNorm: 907290 1 Tablet(s) PO QD 02/01/2011 Inactive metoprolol tartrate 25 mg Tab RxNorm: 903404 1/2 Tablet(s) PO QD 03/30/2011 Inactive metoprolol tartrate 25 mg Tab RxNorm: 015651 1/2 Tablet(s) PO QD 12/28/2010 Inactive meclizine 25 mg Tab RxNorm: 0711934 1 Tablet(s) PO QHS 10/15/201011/2010 Inactive for dizziness Ceftin 500 mg Tab RxNorm: 472677 1 Tablet(s) PO BID 07/02/20102010 Inactive omeprazole 20 mg Cap, Delayed Release RxNorm: 764660 1 Capsule( s) PO BID 07/02/2010 12/28/2010 Inactive simvastatin 40 mg Tab RxNorm: 382804 1 Tablet(s) PO QD 06/30/201007/2018 Inactive simvastatin 40 mg Tab RxNorm: 047122 1 Tablet(s) PO QD 06/30/2010 Inactive simvastatin 40 mg Tab RxNorm: 184998 1 Tablet(s) PO QD 02/25/2010 Inactive Tessalon Perles 100 mg Cap RxNorm: 724003 1 Capsule(s) PO Q6-8H 01/28/2010 Inactive cefdinir 300 mg Cap RxNorm: 221446 1 Capsule(s) PO BID 01/22/2010 Inactive Lexapro 10 mg Tab RxNorm: 956392 1 Tablet(s) PO QD 12/02/2009 010 Inactive Cipro 250 mg Tab RxNorm: 702395 1 Tablet(s) PO BID 12/02/2009 010 Inactive Wellbutrin XL 150 mg 24 hr Tab RxNorm: 150784 1 Tablet(s) PO QAM 08/07/2009 Inactive Fish Oil 1,000 mg Cap RxNorm: 1 Capsule(s) PO QD No Start Date Active Tylenol Extra Strength 500 mg tablet RxNorm: 044756 /2 Tablet( s) PO as needed No Start Date Active nitroglycerin 0.4 mg sublingual tablet RxNorm: 823395 Tablet(s) SL as needed No Start Date Active Calcium with Vitamin D 600 mg (1,500 mg)-400 unit tablet RxN orm: 217132 1 Tablet(s) PO QD No Start Date Active Multivitamin & Mineral Formula Tab RxNorm: 1 Tablet(s) PO QD No St art Date Active vitamin B complex capsule RxNorm: 1 Capsule(s) PO QD No Start Date Active Aspirin 81 mg Tab RxNorm: 023878 1 Tablet(s) PO QD No Start Date Active isosorbide mononitrate ER 30 mg tablet,extended release 24 h r RxNorm: 262188 1 Tablet(s) PO QHS No Start Date Active Vitamin D 1,000 unit Cap RxNorm: 013859 1 Capsule(s) PO QD No Start D ate Active Co Q-10 oral RxNorm: 29370 oral No Start Date Active metoprolol tartrate 25 mg Tab RxNorm: 867785 1/2 Tablet(s) PO QD No Start Date 12/27/2010 Inactive Nasonex 50 mcg/actuation Holmes RxNorm: 7479623 2 [place] NASAL No Sta rt Date 07/06/2017 Inactive Vitamin B12 1000mcg Tablet RxNorm: 1 Tablet(s) PO QD No Start Date 11/12/2014 Inactive amlodipine 5 mg Tab RxNorm: 922900 1 Tablet(s) PO QD No Start Date Inactive simvastatin 40 mg tablet RxNorm: 778153 1 Tablet(s) PO QD No Start Date 06/12/2018 Inactive omeprazole 20 mg capsule,delayed release RxNorm: 917516 1 Capsu le(s) PO BID No Start Date 08/08/2012 Inactive omeprazole 40 mg capsule,delayed release RxNorm: 483188 1 Capsu le(s) PO QD No Start Date 06/12/2018 Inactive Nexium 40 mg Cap RxNorm: 899513 1 Capsule(s) PO QD No Start Date 01/05 Inactive Stool Softener 100 mg Tab RxNorm: 2029272 2 Tablet(s) PO BID No Sta rt Date 03/30/2011 Inactive Calcium with Vitamin D 600 mg (1,500 mg)-400 unit Tab RxNorm : 000444 1 Tablet(s) PO QD No Start Date 11/12/2014 Inactive iron 325 mg (65 mg iron) Tab RxNorm: 851956 1 Tablet(s) PO QD No St art Date 11/12/2014 Inactive Flonase 50 mcg/actuation Nasal [facility] RxNorm: 752274 2 Holmes DEMOND AL BID No Start Date 10/16/2013 Inactive fluticasone 50 mcg/actuation nasal spray,suspension RxNorm: 9259417 2 [place] NASAL QD to each nostril No Start Date 07/06/2017 Inactive Nasonex 50 mcg/actuation [facility] RxNorm: 3387245 2 [place] NASAL QD No Start Date 07/06/2017 Inactive hydralazine 50 mg tablet RxNorm: 663658 1 Tablet(s) PO as needed for BP over 160/90 No Start Date 11/21/2017 Inactive Vimovo 500 mg-20 mg 12 hr Tab RxNorm: 617206 1 Tablet(s) PO BID No Start Date 02/10/2011 Inactive Tylenol PM 25 mg-500 mg/15 mL Oral Soln RxNorm: 0075452 1 PO QPM No Start Date 11/12/2014 Inactive Iron (Ferrous Sulfate) Oral RxNorm: Oral No Start Date 03/30/19 12 Inactive Reglan 10 mg Tab RxNorm: 587734 1 Tablet(s) PO TID before meals No Start Date 02/10/2011 Inactive Xanax 1 mg Tab RxNorm: 937847 1/2 Tablet(s) PO QD No Start Date 11/21 Inactive amlodipine 10 mg tablet RxNorm: 288876 1 Tablet(s) PO QD No Start D ate 09/23/2013 Inactive Iron (dried) Oral RxNorm: Oral No Start Date 03/30/2011 Inactiv e metoprolol tartrate 50 mg tablet RxNorm: 504107 1 Tablet(s) PO BID No Start Date 02/13/2018 Inactive Xanax 0.25 mg tablet RxNorm: 487471 1 Tablet(s) PO BID No Start Date 01/02/2018 Inactive lancets RxNorm: Miscellaneous check blood sugar at least once daily No Start Date 04/03/2012 Inactive simvastatin 40 mg Tab RxNorm: 672092 1 Tablet(s) PO QD No Start Date 02/24/2010 Inactive isosorbide mononitrate ER 30 mg tablet,extended release 24 h r RxNorm: 003178 1 Tablet(s) PO QHS No Start Date 08/13/2018 Inactive amlodipine 2.5 mg tablet RxNorm: 842765 1 Tablet(s) PO QD No Start Date 09/23/2013 Inactive sucralfate 1 gram tablet RxNorm: 696976 1 Tablet(s) PO QID No Start Date 05/09/2018 Inactive Fish Oil Oral RxNorm: Oral No Start Date 03/31/2011 Inactive Multiple Vitamin Oral RxNorm: Oral No Start Date 03/31/2011 Franny ctive metoprolol tartrate 25 mg tablet RxNorm: 955952 1/2 Tablet(s) P O QD No Start Date 06/13/2016 Inactive metoprolol tartrate 50 mg tablet RxNorm: 610477 1/2 Tablet(s) P O BID No Start Date 05/09/2018 Inactive Flonase Allergy Relief 50 mcg/actuation nasal spray,suspensi on RxNorm: 2263644 2 [place] NASAL QHS No Start Date 11/06/2018 Inactive [...] Code Item Item Code Result Date S [facility] Location COMPLETE BLOOD COUNT [id number] WBC 7.1 10e9/L 03/13/19 20 Unknown COMPLETE BLOOD COUNT [id number] RBC 4.16 10e12/L 2019 Unknown COMPLETE BLOOD COUNT [id number] HEMOGLOBIN 12.4 g/dL 03/13/19 20 Unknown COMPLETE BLOOD COUNT [id number] HEMATOCRIT 39.3 % 03/13/19 20 Unknown COMPLETE BLOOD COUNT [id number] MCV 94.5 fL 0 Unknown COMPLETE BLOOD COUNT [id number] MCH 29.8 pg 0 Unknown COMPLETE BLOOD COUNT [id number] MCHC 31.6 g/dL 0 Unknown COMPLETE BLOOD COUNT [id number] PLATELET COUNT 161 10e9/L 09/2019 Unknown COMPLETE BLOOD COUNT [id number] Mean Plt Volume 10.8 fL 09/2019 Unknown COMPLETE BLOOD COUNT [id number] Neut Auto 38.7 % 0 Unknown COMPLETE BLOOD COUNT [id number] Lymph Auto 48.0 % 03/13/19 20 Unknown COMPLETE BLOOD COUNT [id number] [place] Auto 9.5 % 0 Unknown COMPLETE BLOOD COUNT [id number] RDW 13.5 % 0 Unknown COMPLETE BLOOD COUNT [id number] Eos Auto 3.2 % 0 Unknown COMPLETE BLOOD COUNT [id number] Baso Auto 0.6 % 0 Unknown COMPLETE BLOOD COUNT [id number] Neutrophil Abs 2.75 10e9/L Unknown COMPLETE BLOOD COUNT [id number] Lymphocyte Abs 3.41 10e9/L Unknown COMPLETE BLOOD COUNT [id number] Monocyte Abs 0.67 10e9/L 09/2019 Unknown COMPLETE BLOOD COUNT [id number] Eosinophil Abs 0.23 10e9/L Unknown COMPLETE BLOOD COUNT [id number] RDW-SD 44.7 fL 0 Unknown COMPLETE BLOOD COUNT [id number] Basophil Abs 0.04 10e9/L 09/2019 Unknown THYROID STIMULATING HORMONE 25467 TSH 1.677 uIU/mL 03/13/2019 Unknown COMPREHENSIVE METABOLIC 36247 AST 19 U/L 2019 Unknown COMPREHENSIVE METABOLIC 75619 ALT 12 U/L 2019 Unknown COMPREHENSIVE METABOLIC 16227 BUN 17 mg/dL 2019 Unknown COMPREHENSIVE METABOLIC 76303 ALBUMIN 4.2 g/dL 2019 Unknown COMPREHENSIVE METABOLIC 74062 CHLORIDE 103 mmol/L 03/13 Unknown COMPREHENSIVE METABOLIC 62546 Bili Total 0.2 mg/dL 03/13 Unknown COMPREHENSIVE METABOLIC 47166 ALK PHOS 61 U/L 2019 Unknown COMPREHENSIVE METABOLIC 42418 SODIUM 140 mmol/L 03/13 Unknown COMPREHENSIVE METABOLIC 77459 CREATININE 0.95 mg/dL 09/2019 Unknown COMPREHENSIVE METABOLIC 03796 CALCIUM 9.4 mg/dL 2019 Unknown COMPREHENSIVE METABOLIC 03739 POTASSIUM 4.2 mmol/L 03/13 Unknown COMPREHENSIVE METABOLIC 02524 Total Protein 6.5 g/dL Unknown COMPREHENSIVE METABOLIC 84138 Glucose 103 mg/dL 2019 Unknown COMPREHENSIVE METABOLIC 17524 Bicarbonate 26 mmol/L 09/2019 Unknown COMPREHENSIVE METABOLIC 10194 AGAP 11 mmol/L 2019 Unknown GFR CALC [id number] GFR Non Afr Amr 57 mL/min 03/13/2019 Unk nown GFR CALC [id number] GFR Afr Amr >60 mL/min 03/13/2019 Unknow n GFR CALC [id number] GFR Non Afr Amr 52 mL/min 12/15/2018 Unk nown GFR CALC [id number] GFR Afr Amr >60 mL/min 12/15/2018 Unknow n COMPREHENSIVE METABOLIC 85157 AST 17 U/L 2018 Unknown COMPREHENSIVE METABOLIC 24930 ALT 11 U/L 2018 Unknown COMPREHENSIVE METABOLIC 67532 BUN 17 mg/dL 2018 Unknown COMPREHENSIVE METABOLIC 07163 ALBUMIN 3.9 g/dL 2018 Unknown COMPREHENSIVE METABOLIC 24061 CHLORIDE 108 mmol/L 12/15 Unknown COMPREHENSIVE METABOLIC 45860 Bili Total 0.5 mg/dL 12/15 Unknown COMPREHENSIVE METABOLIC 30219 ALK PHOS 72 U/L 2018 Unknown COMPREHENSIVE METABOLIC 26406 SODIUM 142 mmol/L 12/15 Unknown COMPREHENSIVE METABOLIC 89429 CREATININE 1.02 mg/dL 12/05 Unknown COMPREHENSIVE METABOLIC 86061 CALCIUM 9.3 mg/dL 2018 Unknown COMPREHENSIVE METABOLIC 13319 POTASSIUM 4.0 mmol/L 12/15 Unknown COMPREHENSIVE METABOLIC 82894 Total Protein 6.2 g/dL Unknown COMPREHENSIVE METABOLIC 62462 Glucose 93 mg/dL 2018 Unknown COMPREHENSIVE METABOLIC 91381 Bicarbonate 27 mmol/L 12/05 Unknown COMPREHENSIVE METABOLIC 99080 AGAP 7 mmol/L 2018 Unknown GFR CALC [id number] GFR Non Afr Amr 48 mL/min 08/14/2018 Unk nown GFR CALC [id number] GFR Afr Amr 59 mL/min 08/14/2018 Unknown THYROID STIMULATING HORMONE 49633 TSH 1.936 uIU/mL 08/14/2018 Unknown COMPREHENSIVE METABOLIC 49275 AST 18 U/L 2018 Unknown COMPREHENSIVE METABOLIC 45686 ALT 11 U/L 2018 Unknown COMPREHENSIVE METABOLIC 83420 BUN 18 mg/dL 2018 Unknown COMPREHENSIVE METABOLIC 50117 ALBUMIN 4.2 g/dL 2018 Unknown COMPREHENSIVE METABOLIC 31216 CHLORIDE 109 mmol/L 08/14 Unknown COMPREHENSIVE METABOLIC 42801 Bili Total 0.4 mg/dL 08/14 Unknown COMPREHENSIVE METABOLIC 53855 ALK PHOS 64 U/L 2018 Unknown COMPREHENSIVE METABOLIC 88081 SODIUM 142 mmol/L 08/14 Unknown COMPREHENSIVE METABOLIC 33898 CREATININE 1.09 mg/dL 08/05 Unknown COMPREHENSIVE METABOLIC 49243 CALCIUM 9.3 mg/dL 2018 Unknown COMPREHENSIVE METABOLIC 03229 POTASSIUM 4.7 mmol/L 08/14 Unknown COMPREHENSIVE METABOLIC 20953 Total Protein 6.3 g/dL Unknown COMPREHENSIVE METABOLIC 81574 Glucose 84 mg/dL 2018 Unknown COMPREHENSIVE METABOLIC 69388 Bicarbonate 25 mmol/L 08/05 Unknown COMPREHENSIVE METABOLIC 46707 AGAP 8 mmol/L 2018 Unknown COMPLETE BLOOD COUNT [id number] WBC 7.8 10e9/L 08/15/19 19 Unknown COMPLETE BLOOD COUNT [id number] RBC 4.04 10e12/L 2018 Unknown COMPLETE BLOOD COUNT [id number] HEMOGLOBIN 12.2 g/dL 08/15/19 19 Unknown COMPLETE BLOOD COUNT [id number] HEMATOCRIT 38.6 % 08/15/19 19 Unknown COMPLETE BLOOD COUNT [id number] MCV 95.5 fL 9 Unknown COMPLETE BLOOD COUNT [id number] MCH 30.2 pg 9 Unknown COMPLETE BLOOD COUNT [id number] MCHC 31.6 g/dL 9 Unknown COMPLETE BLOOD COUNT [id number] PLATELET COUNT 215 10e9/L 12/2018 Unknown COMPLETE BLOOD COUNT [id number] Mean Plt Volume 11.2 fL 12/2018 Unknown COMPLETE BLOOD COUNT [id number] Neut Auto 45.7 % 9 Unknown COMPLETE BLOOD COUNT [id number] Lymph Auto 42.1 % 08/15/19 19 Unknown COMPLETE BLOOD COUNT [id number] [place] Auto 9.2 % 9 Unknown COMPLETE BLOOD COUNT [id number] RDW 13.4 % 9 Unknown COMPLETE BLOOD COUNT [id number] Eos Auto 2.7 % 9 Unknown COMPLETE BLOOD COUNT [id number] Baso Auto 0.3 % 9 Unknown COMPLETE BLOOD COUNT [id number] Neutrophil Abs 3.56 10e9/L Unknown COMPLETE BLOOD COUNT [id number] Lymphocyte Abs 3.28 10e9/L Unknown COMPLETE BLOOD COUNT [id number] Monocyte Abs 0.72 10e9/L 08/05 Unknown COMPLETE BLOOD COUNT [id number] Eosinophil Abs 0.21 10e9/L Unknown COMPLETE BLOOD COUNT [id number] RDW-SD 44.9 fL 9 Unknown COMPLETE BLOOD COUNT [id number] Basophil Abs 0.02 10e9/L 08/05 Unknown COMPLETE BLOOD COUNT [id number] WBC 5.2 10e9/L 12/01/19 18 Unknown COMPLETE BLOOD COUNT [id number] RBC 4.21 10e12/L 2017 Unknown COMPLETE BLOOD COUNT [id number] HEMOGLOBIN 12.8 g/dL 12/01/19 18 Unknown COMPLETE BLOOD COUNT [id number] HEMATOCRIT 39.0 % 12/01/19 18 Unknown COMPLETE BLOOD COUNT [id number] MCV 92.6 fL 8 Unknown COMPLETE BLOOD COUNT [id number] MCH 30.4 pg 8 Unknown COMPLETE BLOOD COUNT [id number] MCHC 32.8 g/dL 8 Unknown COMPLETE BLOOD COUNT 1058619 PLATELET COUNT 202 10e9/L Unknown COMPLETE BLOOD COUNT 2252667 Mean Plt Volume 10.7 fL Unknown COMPLETE BLOOD COUNT 9551554 Neut Auto 40.9 % 8 Unknown COMPLETE BLOOD COUNT [id number] Lymph Auto 46.3 % 12/01/19 18 Unknown COMPLETE BLOOD COUNT 3995143 [place] Auto 9.3 % 8 Unknown COMPLETE BLOOD COUNT 6964543 RDW 13.7 % 8 Unknown COMPLETE BLOOD COUNT 7854380 Eos Auto 2.9 % 8 Unknown COMPLETE BLOOD COUNT 7506501 Baso Auto 0.6 % 8 Unknown COMPLETE BLOOD COUNT 2441096 Neutrophil Abs 2.13 10e9/L Unknown COMPLETE BLOOD COUNT [id number] Lymphocyte Abs 2.41 10e9/L Unknown COMPLETE BLOOD COUNT [id number] Monocyte Abs 0.48 10e9/L 11/06 Unknown COMPLETE BLOOD COUNT [id number] Eosinophil Abs 0.15 10e9/L Unknown COMPLETE BLOOD COUNT 4708703 RDW-SD 45.2 fL 8 Unknown COMPLETE BLOOD COUNT 7110154 Basophil Abs 0.03 10e9/L 11/06 [place] [address] Glucose 118 mg/dL 11/30 [place] [address] CREATININE 1.01 mg/dL [place] [address] BUN 14 mg/dL 11/30 [place] [address] SODIUM 141 mmol/L 11/06 [place] [address] POTASSIUM 4.0 mmol/L 11/06 [place] [address] CHLORIDE 108 mmol/L 11/06 [place] [address] Bicarbonate 25 mmol/L [place] [address] AGAP 8 mmol/L 11/30 [place] [address] CALCIUM 9.6 mg/dL 11/30 Unknown FREE T4 97668 T4 Free 1.23 ng/dL 11/30/2017 Unknown GFR CALC [id number] GFR Non Afr Amr 53 mL/min 11/30/2017 Unk nown GFR CALC [id number] GFR Afr Amr >60 mL/min 11/30/2017 Unknow n THYROID STIMULATING HORMONE 98667 TSH 2.124 uIU/mL 11/30/2017 Unknown LIPID GROUP 86277 Cholesterol 152 mg/dL 09/28/2017 Unkno wn LIPID GROUP 72000 Triglyceride 151 mg/dL 09/28/2017 Unkn own LIPID GROUP 72031 HDL CHOLESTEROL 47 mg/dL 09/28/2017 U nknown LIPID GROUP 18925 Chol/HDL Ratio 3.23 ratio 09/28/2017 U nknown LIPID GROUP 49306 NON-HDL Chol 105 mg/dL 09/28/2017 Unkn own LIPID GROUP 08859 LDL Cholesterol 75 mg/dL 09/28/2017 U nknown ASSAY OF TROPONIN QUANT 76429 Troponin-I <0.30 ng/mL Unknown COMPREHENSIVE METABOLIC 29164 AST 20 U/L 2017 Unknown COMPREHENSIVE METABOLIC 10988 ALT 14 U/L 2017 Unknown COMPREHENSIVE METABOLIC 07207 BUN 19 mg/dL 2017 Unknown COMPREHENSIVE METABOLIC 08038 ALBUMIN 4.2 g/dL 2017 Unknown COMPREHENSIVE METABOLIC 32074 CHLORIDE 102 mmol/L 09/27 Unknown COMPREHENSIVE METABOLIC 03313 Bili Total 0.4 mg/dL 09/27 Unknown COMPREHENSIVE METABOLIC 11121 ALK PHOS 66 U/L 2017 Unknown COMPREHENSIVE METABOLIC 19181 SODIUM 135 mmol/L 09/27 Unknown COMPREHENSIVE METABOLIC 21177 CREATININE 1.01 mg/dL 09/05 Unknown COMPREHENSIVE METABOLIC 80306 CALCIUM 9.3 mg/dL 2017 Unknown COMPREHENSIVE METABOLIC 72686 POTASSIUM 4.8 mmol/L 09/27 Unknown COMPREHENSIVE METABOLIC 31427 Total Protein 7.0 g/dL Unknown COMPREHENSIVE METABOLIC 59135 Glucose 91 mg/dL 2017 Unknown COMPREHENSIVE METABOLIC 68160 Bicarbonate 23 mmol/L 09/05 Unknown COMPREHENSIVE METABOLIC 59813 AGAP 10 mmol/L 2017 Unknown COMPLETE BLOOD COUNT [id number] WBC 7.5 10e9/L 09/28/19 18 Unknown COMPLETE BLOOD COUNT [id number] RBC 4.13 10e12/L 2017 Unknown COMPLETE BLOOD COUNT [id number] HEMOGLOBIN 12.6 g/dL 09/28/19 18 Unknown COMPLETE BLOOD COUNT [id number] HEMATOCRIT 38.4 % 09/28/19 18 Unknown COMPLETE BLOOD COUNT [id number] MCV 93.0 fL 8 Unknown COMPLETE BLOOD COUNT 8404418 MCH 30.5 pg 8 Unknown COMPLETE BLOOD COUNT 5183393 MCHC 32.8 g/dL 8 Unknown COMPLETE BLOOD COUNT 8162548 PLATELET COUNT 204 10e9/L Unknown COMPLETE BLOOD COUNT 7643189 Mean Plt Volume 10.9 fL Unknown COMPLETE BLOOD COUNT 8636217 Neut Auto 43.1 % 8 Unknown COMPLETE BLOOD COUNT 8458030 Lymph Auto 45.0 % 09/28/19 18 Unknown COMPLETE BLOOD COUNT 7000743 [place] Auto 9.2 % 8 Unknown COMPLETE BLOOD COUNT 8568855 RDW 13.4 % 8 Unknown COMPLETE BLOOD COUNT 1192279 Eos Auto 2.3 % 8 Unknown COMPLETE BLOOD COUNT 6263331 Baso Auto 0.4 % 8 Unknown COMPLETE BLOOD COUNT [id number] Neutrophil Abs 3.23 10e9/L Unknown COMPLETE BLOOD COUNT [id number] Lymphocyte Abs 3.38 10e9/L Unknown COMPLETE BLOOD COUNT [id number] Monocyte Abs 0.69 10e9/L 09/05 Unknown COMPLETE BLOOD COUNT [id number] Eosinophil Abs 0.17 10e9/L Unknown COMPLETE BLOOD COUNT 1845394 RDW-SD 44.4 fL 8 Unknown COMPLETE BLOOD COUNT [id number] Basophil Abs 0.03 10e9/L 09/05 Unknown GFR CALC 0264552 GFR Non Afr Amr 53 mL/min 09/27/2017 Unk nown GFR CALC 2804019 GFR Afr Amr >60 mL/min 09/27/2017 Unknow n GLYCOSYLATED HEMOGLOBIN TEST 82546 Hgb A1c 39865-8 5.4 % 0 09/27/2017 Unknown MEAN GLUC 8897150 Calc Mean Gluc 108 mg/dL 09/27/2017 Unkn own MEAN GLUC 3965204 Calc Mean Gluc 114 mg/dL 11/01/2016 Unkn own LIPID GROUP 95912 Cholesterol 146 mg/dL 11/01/2016 Unkno wn LIPID GROUP 34711 Triglyceride 119 mg/dL 11/01/2016 Unkn own LIPID GROUP 45729 HDL CHOLESTEROL 47 mg/dL 11/01/2016 U nknown LIPID GROUP 24534 Chol/HDL Ratio 3.11 ratio 11/01/2016 U nknown LIPID GROUP 23196 NON-HDL Chol 99 mg/dL 11/01/2016 Unkn own LIPID GROUP 39454 LDL Cholesterol 75 mg/dL 11/01/2016 U nknown GLYCOSYLATED HEMOGLOBIN TEST 98944 Hgb A1c 93640-0 5.6 % 0 11/01/2016 Unknown COMPREHENSIVE METABOLIC 56766 AST 22 U/L 2016 Unknown COMPREHENSIVE METABOLIC 36333 ALT 12 U/L 2016 Unknown COMPREHENSIVE METABOLIC 24776 BUN 17 mg/dL 2016 Unknown COMPREHENSIVE METABOLIC 63053 ALBUMIN 4.0 g/dL 2016 Unknown COMPREHENSIVE METABOLIC 87915 CHLORIDE 110 mmol/L 11/01 Unknown COMPREHENSIVE METABOLIC 55481 Bili Total 0.4 mg/dL 11/01 Unknown COMPREHENSIVE METABOLIC 32081 ALK PHOS 63 U/L 2016 Unknown COMPREHENSIVE METABOLIC 49429 SODIUM 140 mmol/L 11/01 Unknown COMPREHENSIVE METABOLIC 06568 CREATININE 1.05 mg/dL 10/06 Unknown COMPREHENSIVE METABOLIC 01779 CALCIUM 9.2 mg/dL 2016 Unknown COMPREHENSIVE METABOLIC 99311 POTASSIUM 4.2 mmol/L 11/01 Unknown COMPREHENSIVE METABOLIC 17040 Total Protein 6.2 g/dL Unknown COMPREHENSIVE METABOLIC 36937 Glucose 87 mg/dL 2016 Unknown COMPREHENSIVE METABOLIC 82555 Bicarbonate 24 mmol/L 10/06 Unknown COMPREHENSIVE METABOLIC 98937 AGAP 6 mmol/L 2016 Unknown GFR CALC 7658708 GFR Non Afr Amr 51 mL/min 11/01/2016 Unk nown GFR CALC 1757507 GFR Afr Amr >60 mL/min 11/01/2016 Unknow n COMPLETE BLOOD COUNT [id number] WBC 6.7 10e9/L 11/02/19 17 Unknown COMPLETE BLOOD COUNT 7004174 RBC 4.04 10e12/L 2016 Unknown COMPLETE BLOOD COUNT 1428847 HEMOGLOBIN 12.1 g/dL 11/02/19 17 Unknown COMPLETE BLOOD COUNT 1234998 HEMATOCRIT 38.0 % 11/02/19 17 Unknown COMPLETE BLOOD COUNT 9672877 MCV 94.1 fL 7 Unknown COMPLETE BLOOD COUNT 3765815 MCH 30.0 pg 7 Unknown COMPLETE BLOOD COUNT 3107452 MCHC 31.8 g/dL 7 Unknown COMPLETE BLOOD COUNT 5181280 PLATELET COUNT 206 10e9/L Unknown COMPLETE BLOOD COUNT 8635338 Mean Plt Volume 11.3 fL Unknown COMPLETE BLOOD COUNT 4060989 Neut Auto 35.8 % 7 Unknown COMPLETE BLOOD COUNT 0510455 Lymph Auto 51.6 % 11/02/19 17 Unknown COMPLETE BLOOD COUNT 6202546 [place] Auto 8.8 % 7 Unknown COMPLETE BLOOD COUNT 3932808 RDW 13.5 % 7 Unknown COMPLETE BLOOD COUNT 5820695 Eos Auto 3.4 % 7 Unknown COMPLETE BLOOD COUNT 4004974 Baso Auto 0.4 % 7 Unknown COMPLETE BLOOD COUNT 1688299 Neutrophil Abs 2.40 10e9/L Unknown COMPLETE BLOOD COUNT 4318944 Lymphocyte Abs 3.46 10e9/L Unknown COMPLETE BLOOD COUNT 2948040 Monocyte Abs 0.59 10e9/L 10/06 Unknown COMPLETE BLOOD COUNT 7620626 Eosinophil Abs 0.23 10e9/L Unknown COMPLETE BLOOD COUNT 1649207 RDW-SD 45.3 fL 7 Unknown COMPLETE BLOOD COUNT 9707438 Basophil Abs 0.03 10e9/L 10/06 Unknown THYROID STIMULATING HORMONE 75296 TSH 1.981 uIU/mL 11/01/2016 Unknown COMPLETE BLOOD COUNT 9911688 WBC 6.0 10e9/L 05/14/19 17 Unknown COMPLETE BLOOD COUNT 0494912 RBC 4.29 10e12/L 2016 Unknown COMPLETE BLOOD COUNT 2218001 HEMOGLOBIN 12.9 g/dL 05/14/19 17 Unknown COMPLETE BLOOD COUNT 3468466 HEMATOCRIT 38.4 % 05/14/19 17 Unknown COMPLETE BLOOD COUNT 4076363 MCV 89.5 fL 7 Unknown COMPLETE BLOOD COUNT 3708434 MCH 30.1 pg 7 Unknown COMPLETE BLOOD COUNT 7896707 MCHC 33.6 g/dL 7 Unknown COMPLETE BLOOD COUNT 5806587 PLATELET COUNT 181 10e9/L 11/2016 Unknown COMPLETE BLOOD COUNT 4718106 Mean Plt Volume 11.7 fL 11/2016 Unknown COMPLETE BLOOD COUNT 7334753 Neut Auto 36.9 % 7 Unknown COMPLETE BLOOD COUNT 7672029 Lymph Auto 50.4 % 05/14/19 17 Unknown COMPLETE BLOOD COUNT 1429618 [place] Auto 9.0 % 7 Unknown COMPLETE BLOOD COUNT 8577953 RDW 13.7 % 7 Unknown COMPLETE BLOOD COUNT 2605212 Eos Auto 3.4 % 7 Unknown COMPLETE BLOOD COUNT 9707099 Baso Auto 0.3 % 7 Unknown COMPLETE BLOOD COUNT 5595688 Neutrophil Abs 2.21 10e9/L Unknown COMPLETE BLOOD COUNT 3919088 Lymphocyte Abs 3.02 10e9/L Unknown COMPLETE BLOOD COUNT [id number] Monocyte Abs 0.54 10e9/L 11/2016 Unknown COMPLETE BLOOD COUNT [id number] Eosinophil Abs 0.20 10e9/L Unknown COMPLETE BLOOD COUNT 6758310 RDW-SD 44.0 fL 7 Unknown COMPLETE BLOOD COUNT 3131241 Basophil Abs 0.02 10e9/L 11/2016 Unknown GLYCOSYLATED HEMOGLOBIN TEST 03367 Hgb A1c 77095-5 5.4 % 0 05/13/2016 Unknown THYROID STIMULATING HORMONE 43959 TSH 2.200 uIU/mL 05/13/2016 Unknown GFR CALC 4807984 GFR Non Afr Amr 50 mL/min 05/13/2016 Unk nown GFR CALC 3906519 GFR Afr Amr >60 mL/min 05/13/2016 Unknow n MEAN GLUC 6363798 Calc Mean Gluc 108 mg/dL 05/13/2016 Unkn own COMPREHENSIVE METABOLIC 48801 AST 18 U/L 2016 Unknown COMPREHENSIVE METABOLIC 55049 ALT 10 U/L 2016 Unknown COMPREHENSIVE METABOLIC 07867 BUN 20 mg/dL 2016 Unknown COMPREHENSIVE METABOLIC 05939 ALBUMIN 4.1 g/dL 2016 Unknown COMPREHENSIVE METABOLIC 75013 CHLORIDE 109 mmol/L 05/13 Unknown COMPREHENSIVE METABOLIC 08443 Bili Total 0.6 mg/dL 05/13 Unknown COMPREHENSIVE METABOLIC 32031 ALK PHOS 64 U/L 2016 Unknown COMPREHENSIVE METABOLIC 28976 SODIUM 141 mmol/L 05/13 Unknown COMPREHENSIVE METABOLIC 31963 CREATININE 1.06 mg/dL 11/2016 Unknown COMPREHENSIVE METABOLIC 00708 CALCIUM 9.9 mg/dL 2016 Unknown COMPREHENSIVE METABOLIC 73029 POTASSIUM 4.2 mmol/L 05/13 Unknown COMPREHENSIVE METABOLIC 57319 Total Protein 6.3 g/dL Unknown COMPREHENSIVE METABOLIC 17074 Glucose 99 mg/dL 2016 Unknown COMPREHENSIVE METABOLIC 06623 Bicarbonate 21 mmol/L 11/2016 Unknown COMPREHENSIVE METABOLIC 85478 AGAP 11 mmol/L 2016 Unknown LIPID GROUP 46977 Cholesterol 169 mg/dL 11/25/2015 Unkno wn LIPID GROUP 40674 Triglyceride 165 mg/dL 11/25/2015 Unkn own LIPID GROUP 96012 HDL CHOLESTEROL 43 mg/dL 11/25/2015 U nknown LIPID GROUP 78197 Chol/HDL Ratio 3.93 ratio 11/25/2015 U nknown LIPID GROUP 69714 NON-HDL Chol 126 mg/dL 11/25/2015 Unkn own LIPID GROUP 48314 LDL Cholesterol 93 mg/dL 11/25/2015 U nknown COMPREHENSIVE METABOLIC 08200 AST 18 U/L 2015 Unknown COMPREHENSIVE METABOLIC 02563 ALT 10 U/L 2015 Unknown COMPREHENSIVE METABOLIC 86681 BUN 20 mg/dL 2015 Unknown COMPREHENSIVE METABOLIC 36776 ALBUMIN 3.9 g/dL 2015 Unknown COMPREHENSIVE METABOLIC 04053 CHLORIDE 110 mmol/L 11/24 Unknown COMPREHENSIVE METABOLIC 03356 Bili Total 0.5 mg/dL 11/24 Unknown COMPREHENSIVE METABOLIC 71222 ALK PHOS 72 U/L 2015 Unknown COMPREHENSIVE METABOLIC 84981 SODIUM 141 mmol/L 11/24 Unknown COMPREHENSIVE METABOLIC 67158 CREATININE 1.12 mg/dL 11/06 Unknown COMPREHENSIVE METABOLIC 09632 CALCIUM 9.7 mg/dL 2015 Unknown COMPREHENSIVE METABOLIC 63016 POTASSIUM 4.4 mmol/L 11/24 Unknown COMPREHENSIVE METABOLIC 11529 Total Protein 6.2 g/dL Unknown COMPREHENSIVE METABOLIC 34146 Glucose 90 mg/dL 2015 Unknown COMPREHENSIVE METABOLIC 71491 Bicarbonate 23 mmol/L 11/06 Unknown COMPREHENSIVE METABOLIC 14098 AGAP 8 mmol/L 2015 Unknown GFR CALC 8894146 GFR Non Afr Amr 47 mL/min 11/25/2015 Unk nown GFR CALC 8211651 GFR Afr Amr 57 mL/min 11/25/2015 Unknown GLYCOSYLATED HEMOGLOBIN TEST 96256 Hgb A1c 13869-6 5.5 % 0 11/25/2015 Unknown THYROID STIMULATING HORMONE 72556 TSH 2.537 uIU/mL 11/25/2015 Unknown FREE T4 09654 T4 Free 1.36 ng/dL 11/25/2015 Unknown COMPLETE BLOOD COUNT 7196038 WBC 6.8 10e9/L 11/25/19 16 Unknown COMPLETE BLOOD COUNT 6582316 RBC 4.20 10e12/L 2015 Unknown COMPLETE BLOOD COUNT 0130129 HEMOGLOBIN 12.5 g/dL 11/25/19 16 Unknown COMPLETE BLOOD COUNT 8353750 HEMATOCRIT 38.0 % 11/25/19 16 Unknown COMPLETE BLOOD COUNT 2621894 MCV 90.5 fL 6 Unknown COMPLETE BLOOD COUNT 8862752 MCH 29.8 pg 6 Unknown COMPLETE BLOOD COUNT 4977294 MCHC 32.9 g/dL 6 Unknown COMPLETE BLOOD COUNT 9651305 PLATELET COUNT 197 10e9/L Unknown COMPLETE BLOOD COUNT 7383588 Mean Plt Volume 11.7 fL Unknown COMPLETE BLOOD COUNT 5536397 Neut Auto 41.3 % 6 Unknown COMPLETE BLOOD COUNT 7941360 Lymph Auto 47.1 % 11/25/19 16 Unknown COMPLETE BLOOD COUNT 8955437 [place] Auto 7.8 % 6 Unknown COMPLETE BLOOD COUNT 8761989 RDW 13.8 % 6 Unknown COMPLETE BLOOD COUNT 3784357 Eos Auto 3.4 % 6 Unknown COMPLETE BLOOD COUNT 4278215 Baso Auto 0.4 % 6 Unknown COMPLETE BLOOD COUNT 6692457 Neutrophil Abs 2.81 10e9/L Unknown COMPLETE BLOOD COUNT 2002553 Lymphocyte Abs 3.20 10e9/L Unknown COMPLETE BLOOD COUNT 0328347 Monocyte Abs 0.53 10e9/L 11/06 Unknown COMPLETE BLOOD COUNT 4137961 Eosinophil Abs 0.23 10e9/L Unknown COMPLETE BLOOD COUNT 3040735 RDW-SD 44.4 fL 6 Unknown COMPLETE BLOOD COUNT 6757199 Basophil Abs 0.03 10e9/L 11/06 Unknown MEAN GLUC 5022167 Calc Mean Gluc 111 mg/dL 11/25/2015 [place] [address] Glucose 89 MG/DL 02/19 [place] [address] CREATININE 1.12 MG/DL [place] [address] BUN 20 MG/DL 02/19 [place] [address] SODIUM 139 MMOL/L 02/04 [place] [address] POTASSIUM 4.6 MMOL/L 02/04 [place] [address] CHLORIDE 108 MMOL/L 02/04 [place] [address] BICARB 26 MMOL/L 02/19 [place] [address] ANION GAP 5 MEQ/L 02/19 [place] [address] CALCIUM 10.0 MG/DL 02/04 Unknown GFR CALC 7614221 GFR AA 57.0L ML/MIN 02/19/2015 Unknow n GFR CALC 9131529 GFR NON-AA 47.0L ML/MIN 02/19/2015 Unkno wn THYROID STIMULATING HORMONE 21899 TSH 2.378 uIU/ML 11/14/2014 Unknown COMPLETE BLOOD COUNT 4933778 WBC 6.4 10e9/L 11/15/19 15 Unknown COMPLETE BLOOD COUNT 7003872 RBC 3.99 10e12/L 2014 Unknown COMPLETE BLOOD COUNT 5485747 HGB 11.9 g/dL 5 Unknown COMPLETE BLOOD COUNT 8638403 HCT DET 36.9 % 5 Unknown COMPLETE BLOOD COUNT 6022882 MCV 92.5 fL 5 Unknown COMPLETE BLOOD COUNT 6187585 MCH 29.8 pg 5 Unknown COMPLETE BLOOD COUNT 9918004 MCHC 32.2 g/dL 5 Unknown COMPLETE BLOOD COUNT 9856666 PLT 172 10e9/L 11/15/19 15 Unknown COMPLETE BLOOD COUNT 1443317 MPV 11.7 fL 5 Unknown COMPLETE BLOOD COUNT 1466420 C[place]TH[place] % 40.4 % 5 Unknown COMPLETE BLOOD COUNT 8134719 LY % 48.0 % 5 Unknown COMPLETE BLOOD COUNT 8278430 MON % 8.3 % 5 Unknown COMPLETE BLOOD COUNT 8224405 EOS % 2.8 % 5 Unknown COMPLETE BLOOD COUNT 7859923 BASO % 0.5 % 5 Unknown COMPLETE BLOOD COUNT 0940572 RDW 13.6 % 5 Unknown COMPLETE BLOOD COUNT 6021406 ABS CINTHYA 2.59 10e9/L 015 Unknown COMPLETE BLOOD COUNT 2098466 ABS LYMPH 3.07 10e9/L 015 Unknown COMPLETE BLOOD COUNT 2039654 ABS MONO 0.53 10e9/L 015 Unknown COMPLETE BLOOD COUNT 5448129 ABS EOS 0.18 10e9/L 015 Unknown COMPLETE BLOOD COUNT 9558535 ABS BASO 0.03 10e9/L 015 Unknown COMPLETE BLOOD COUNT 2513323 RDW-SD 44.9 fL 5 Unknown LIPID GROUP 01692 HDL TEST 42 MG/DL 11/14/2014 Unknown LIPID GROUP 61193 TRIG 177 MG/DL 11/14/2014 Unknown LIPID GROUP 02236 TEST LDL 72 MG/DL 11/14/2014 Unknown LIPID GROUP 55785 CHOL 149 MG/DL 11/14/2014 Unknown LIPID GROUP 32708 RCHOL/HDL 3.55 RATIO 11/14/2014 Unknow n LIPID GROUP 87625 NON-HDL CH 107 MG/DL 11/14/2014 Unknow n GLYCOSYLATED HEMOGLOBIN TEST 99515 A1C HPLC 52554-4 5.5 % 0 11/14/2014 Unknown FREE T4 56286 FREE T4 1.39 NG/DL 11/14/2014 Unknown GFR CALC 7781479 GFR AA 55.0L ML/MIN 11/14/2014 Unknow n GFR CALC 1066052 GFR NON-AA 46.0L ML/MIN 11/14/2014 Unkno wn COMPREHENSIVE METABOLIC 74135 AST 17 U/L 2014 Unknown COMPREHENSIVE METABOLIC 81575 ALT 10 IU/L 2014 Unknown COMPREHENSIVE METABOLIC 46720 BUN 20 MG/DL 2014 Unknown COMPREHENSIVE METABOLIC 20386 ALBUMIN 3.9 GM/DL 2014 Unknown COMPREHENSIVE METABOLIC 54456 CHLORIDE 111 MMOL/L 11/14 Unknown COMPREHENSIVE METABOLIC 41283 BILI TOT 0.4 MG/DL 2014 Unknown COMPREHENSIVE METABOLIC 68024 ALK PHOS 70 U/L 2014 Unknown COMPREHENSIVE METABOLIC 51638 SODIUM 142 MMOL/L 11/14 Unknown COMPREHENSIVE METABOLIC 58548 CREATININE 1.16 MG/DL 11/05 Unknown COMPREHENSIVE METABOLIC 25855 CALCIUM 9.4 MG/DL 2014 Unknown COMPREHENSIVE METABOLIC 70420 POTASSIUM 4.6 MMOL/L 11/14 Unknown COMPREHENSIVE METABOLIC 03896 PROT TOT 6.2 GM/DL 2014 Unknown COMPREHENSIVE METABOLIC 13390 Glucose 90 MG/DL 2014 Unknown COMPREHENSIVE METABOLIC 83696 BICARB 24 MMOL/L 2014 Unknown COMPREHENSIVE METABOLIC 50914 ANION GAP 7 MEQ/L 2014 Unknown THYROID STIMULATING HORMONE 07621 TSH 2.427 uIU/ML 05/10/2014 Unknown LIPID GROUP 28462 HDL TEST 47 MG/DL 05/10/2014 Unknown LIPID GROUP 66622 TRIG 145 MG/DL 05/10/2014 Unknown LIPID GROUP 83286 TEST LDL 73 MG/DL 05/10/2014 Unknown LIPID GROUP 94478 CHOL 149 MG/DL 05/10/2014 Unknown LIPID GROUP 85239 RCHOL/HDL 3.17 RATIO 05/10/2014 Unknow n LIPID GROUP 12952 NON-HDL CH 102 MG/DL 05/10/2014 Unknow n COMPREHENSIVE METABOLIC 45642 AST 17 U/L 2014 Unknown COMPREHENSIVE METABOLIC 26017 ALT 9 IU/L 2014 Unknown COMPREHENSIVE METABOLIC 98948 BUN 19 MG/DL 2014 Unknown COMPREHENSIVE METABOLIC 90111 ALBUMIN 4.3 GM/DL 2014 Unknown COMPREHENSIVE METABOLIC 37111 CHLORIDE 108 MMOL/L 05/10 Unknown COMPREHENSIVE METABOLIC 08895 BILI TOT 0.5 MG/DL 2014 Unknown COMPREHENSIVE METABOLIC 75910 ALK PHOS 68 U/L 2014 Unknown COMPREHENSIVE METABOLIC 29158 SODIUM 140 MMOL/L 05/10 Unknown COMPREHENSIVE METABOLIC 56214 CREATININE 1.08 MG/DL 08/2014 Unknown COMPREHENSIVE METABOLIC 64730 CALCIUM 9.9 MG/DL 2014 Unknown COMPREHENSIVE METABOLIC 72738 POTASSIUM 4.3 MMOL/L 05/10 Unknown COMPREHENSIVE METABOLIC 50540 PROT TOT 7.2 GM/DL 2014 Unknown COMPREHENSIVE METABOLIC 98586 Glucose 94 MG/DL 2014 Unknown COMPREHENSIVE METABOLIC 11840 BICARB 26 MMOL/L 2014 Unknown COMPREHENSIVE METABOLIC 10320 ANION GAP 6 MEQ/L 2014 Unknown GFR CALC 8953719 GFR AA 60.0L ML/MIN 05/10/2014 Unknow n GFR CALC 7894868 GFR NON-AA 49.0L ML/MIN 05/10/2014 Unkno wn GLYCOSYLATED HEMOGLOBIN TEST 84812 A1C HPLC 66240-7 5.6 % 0 05/10/2014 Unknown COMPLETE BLOOD COUNT 2769777 WBC 7.2 10e9/L 05/11/19 15 Unknown COMPLETE BLOOD COUNT 9391418 RBC 4.28 10e12/L 2014 Unknown COMPLETE BLOOD COUNT 6535343 HGB 12.8 g/dL 5 Unknown COMPLETE BLOOD COUNT 1102817 HCT DET 39.3 % 5 Unknown COMPLETE BLOOD COUNT 8290489 MCV 91.8 fL 5 Unknown COMPLETE BLOOD COUNT 5350973 MCH 29.9 pg 5 Unknown COMPLETE BLOOD COUNT 1451118 MCHC 32.6 g/dL 5 Unknown COMPLETE BLOOD COUNT 7032201 PLT 189 10e9/L 05/11/19 15 Unknown COMPLETE BLOOD COUNT 1468625 MPV 11.2 fL 5 Unknown COMPLETE BLOOD COUNT 5746134 CINTHYA % 38.0 % 5 Unknown COMPLETE BLOOD COUNT 9654232 LY % 51.0 % 5 Unknown COMPLETE BLOOD COUNT 3410555 MON % 7.7 % 5 Unknown COMPLETE BLOOD COUNT 3145775 EOS % 2.9 % 5 Unknown COMPLETE BLOOD COUNT 8219110 BASO % 0.4 % 5 Unknown COMPLETE BLOOD COUNT 0902359 RDW 14.0 % 5 Unknown COMPLETE BLOOD COUNT 7429295 ABS CINTHYA 2.74 10e9/L 015 Unknown COMPLETE BLOOD COUNT 6815081 ABS LYMPH 3.67 10e9/L 015 Unknown COMPLETE BLOOD COUNT 3010635 ABS MONO 0.55 10e9/L 015 Unknown COMPLETE BLOOD COUNT 7962376 ABS EOS 0.21 10e9/L 015 Unknown COMPLETE BLOOD COUNT 2256857 ABS BASO 0.03 10e9/L 015 Unknown COMPLETE BLOOD COUNT 1162552 RDW-SD 46.1 fL 5 Unknown FREE T4 20586 FREE T4 1.14 NG/DL 05/10/2014 Unknown GLYCOSYLATED HEMOGLOBIN TEST 87272 A1C HPLC 37007-0 5.2 % 0 03/29/2013 Unknown FREE T4 22394 FREE T4 1.40 NG/DL 03/28/2013 Unknown GFR CALC 7083629 GFR AA >60 ML/MIN 03/28/2013 Unknown GFR CALC 6875021 GFR NON-AA 52.0L ML/MIN 03/28/2013 Unkno wn COMPREHENSIVE METABOLIC 72495 AST 15 U/L 2013 Unknown COMPREHENSIVE METABOLIC 39663 ALT 9 IU/L 2013 Unknown COMPREHENSIVE METABOLIC 43015 BUN 17 MG/DL 2013 Unknown COMPREHENSIVE METABOLIC 02595 ALBUMIN 4.0 GM/DL 2013 Unknown COMPREHENSIVE METABOLIC 37708 CHLORIDE 112 MMOL/L 03/28 Unknown COMPREHENSIVE METABOLIC 83203 BILI TOT 0.5 MG/DL 2013 Unknown COMPREHENSIVE METABOLIC 83782 ALK PHOS 66 U/L 2013 Unknown COMPREHENSIVE METABOLIC 75784 SODIUM 140 MMOL/L 03/28 Unknown COMPREHENSIVE METABOLIC 03661 CREATININE 1.03 MG/DL 03/08 Unknown COMPREHENSIVE METABOLIC 36315 CALCIUM 9.5 MG/DL 2013 Unknown COMPREHENSIVE METABOLIC 18839 POTASSIUM 4.1 MMOL/L 03/28 Unknown COMPREHENSIVE METABOLIC 40040 PROT TOT 6.2 GM/DL 2013 Unknown COMPREHENSIVE METABOLIC 15664 Glucose 102 MG/DL 2013 Unknown COMPREHENSIVE METABOLIC 68389 BICARB 23 MMOL/L 2013 Unknown COMPREHENSIVE METABOLIC 05440 ANION GAP 5 MEQ/L 2013 Unknown THYROID STIMULATING HORMONE 82446 TSH 2.074 uIU/ML 03/28/2013 Unknown VITAMIN B 12 FOLIC ACID 58195|82524 VIT B 12 423 PG/ML 03/08 Unknown VITAMIN B 12 FOLIC ACID 79050|34277 FOLIC ACID 19.7 NG/ML Unknown LIPID GROUP 25032 HDL TEST 40 MG/DL 03/28/2013 Unknown LIPID GROUP 91276 TRIG 145 MG/DL 03/28/2013 Unknown LIPID GROUP 29069 TEST LDL 81 MG/DL 03/28/2013 Unknown LIPID GROUP 43398 CHOL 150 MG/DL 03/28/2013 Unknown LIPID GROUP 72004 RCHOL/HDL 3.75 RATIO 03/28/2013 Unknow n COMPLETE BLOOD COUNT 9986135 WBC 6.0 10e9/L 03/28/19 14 Unknown COMPLETE BLOOD COUNT 6857591 RBC 4.26 10e12/L 2013 Unknown COMPLETE BLOOD COUNT 6245839 HGB 12.7 g/dL 4 Unknown COMPLETE BLOOD COUNT 6757175 HCT DET 38.7 % 4 Unknown COMPLETE BLOOD COUNT 3467111 MCV 90.8 fL 4 Unknown COMPLETE BLOOD COUNT 9038968 MCH 29.8 pg 4 Unknown COMPLETE BLOOD COUNT 6498344 MCHC 32.8 g/dL 4 Unknown COMPLETE BLOOD COUNT 5265183 PLT 178 10e9/L 03/28/19 14 Unknown COMPLETE BLOOD COUNT 7442545 MPV 11.7 fL 4 Unknown COMPLETE BLOOD COUNT 6937390 CINTHYA % 30.5 % 4 Unknown COMPLETE BLOOD COUNT 3387782 LY % 55.4 % 4 Unknown COMPLETE BLOOD COUNT 2268380 MON % 9.0 % 4 Unknown COMPLETE BLOOD COUNT 0735915 EOS % 4.4 % 4 Unknown COMPLETE BLOOD COUNT 7139275 BASO % 0.7 % 4 Unknown COMPLETE BLOOD COUNT 3086225 RDW 13.3 % 4 Unknown COMPLETE BLOOD COUNT 3031677 ABS CINTHYA 1.83 10e9/L 014 Unknown COMPLETE BLOOD COUNT 5504384 ABS LYMPH 3.32 10e9/L 014 Unknown COMPLETE BLOOD COUNT 8404006 ABS MONO 0.54 10e9/L 014 Unknown COMPLETE BLOOD COUNT 4055127 ABS EOS 0.26 10e9/L 014 Unknown COMPLETE BLOOD COUNT 9083657 ABS BASO 0.04 10e9/L 014 Unknown COMPLETE BLOOD COUNT 4533825 RDW-SD 43.2 fL 4 Unknown HEMOGLOBIN A1C (GLYCOSYLATED) 8567199 A1C HPLC 28638-7 5.5 % 02/24/2012 Unknown COMPLETE BLOOD COUNT 2393052 WBC 6.0 10e9/L 02/23/20 12 Unknown COMPLETE BLOOD COUNT 2877499 RBC 4.22 10e12/L 2011 Unknown COMPLETE BLOOD COUNT 9814744 HGB 12.4 g/dL 2 Unknown COMPLETE BLOOD COUNT 1411721 HCT DET 38.2 % 2 Unknown COMPLETE BLOOD COUNT 7534499 MCV 90.5 fL 2 Unknown COMPLETE BLOOD COUNT 3444598 MCH 29.4 pg 2 Unknown COMPLETE BLOOD COUNT 5000980 MCHC 32.5 g/dL 2 Unknown COMPLETE BLOOD COUNT 1904953 PLT 187 10e9/L 02/23/20 12 Unknown COMPLETE BLOOD COUNT 8203596 MPV 11.5 fL 2 Unknown COMPLETE BLOOD COUNT 3034095 CINTHYA % 36.4 % 2 Unknown COMPLETE BLOOD COUNT 7423725 LY % 51.0 % 2 Unknown COMPLETE BLOOD COUNT 8048744 MON % 8.7 % 2 Unknown COMPLETE BLOOD COUNT 5375721 EOS % 3.2 % 2 Unknown COMPLETE BLOOD COUNT 8058688 BASO % 0.7 % 2 Unknown COMPLETE BLOOD COUNT 4774013 RDW 13.7 % 2 Unknown COMPLETE BLOOD COUNT 5326321 ABS CINTHYA 2.18 10e9/L 012 Unknown COMPLETE BLOOD COUNT 8330361 ABS LYMPH 3.06 10e9/L 012 Unknown COMPLETE BLOOD COUNT 7230764 ABS MONO 0.52 10e9/L 012 Unknown COMPLETE BLOOD COUNT 8937837 ABS EOS 0.19 10e9/L 012 Unknown COMPLETE BLOOD COUNT 8483505 ABS BASO 0.04 10e9/L 012 Unknown COMPLETE BLOOD COUNT 9091870 RDW-SD 44.3 fL 2 Unknown LIPID GROUP 18874 HDL TEST 42 MG/DL 02/23/2012 Unknown LIPID GROUP 63028 TRIG 156 MG/DL 02/23/2012 Unknown LIPID GROUP 44758 TEST LDL 80 MG/DL 02/23/2012 Unknown LIPID GROUP 97776 CHOL 153 MG/DL 02/23/2012 Unknown LIPID GROUP 80839 RCHOL/HDL 3.64 RATIO 02/23/2012 Unknow n FREE T4 36597 FREE T4 1.22 NG/DL 02/23/2012 Unknown COMPREHENSIVE METABOLIC 13691 AST 20 U/L 2011 Unknown COMPREHENSIVE METABOLIC 94791 ALT 11 IU/L 2011 Unknown COMPREHENSIVE METABOLIC 05343 BUN 19 MG/DL 2011 Unknown COMPREHENSIVE METABOLIC 44138 ALBUMIN 4.3 GM/DL 2011 Unknown COMPREHENSIVE METABOLIC 48697 CHLORIDE 109 MMOL/L 02/22 Unknown COMPREHENSIVE METABOLIC 90763 BILI TOT 0.6 MG/DL 2011 Unknown COMPREHENSIVE METABOLIC 24819 ALK PHOS 84 U/L 2011 Unknown COMPREHENSIVE METABOLIC 04996 SODIUM 142 MMOL/L 02/22 Unknown COMPREHENSIVE METABOLIC 69271 CREATININE 1.09 MG/DL 02/04 Unknown COMPREHENSIVE METABOLIC 53830 CALCIUM 9.8 MG/DL 2011 Unknown COMPREHENSIVE METABOLIC 98826 POTASSIUM 4.2 MMOL/L 02/22 Unknown COMPREHENSIVE METABOLIC 56349 PROT TOT 6.4 GM/DL 2011 Unknown COMPREHENSIVE METABOLIC 80185 Glucose 89 MG/DL 2011 Unknown COMPREHENSIVE METABOLIC 78748 BICARB 25 MMOL/L 2011 Unknown COMPREHENSIVE METABOLIC 25006 ANION GAP 8 MEQ/L 2011 Unknown GFR CALC [id number] GFR AA 60.0L ML/MIN 02/23/2012 Unknow n GFR CALC [id number] GFR NON-AA 49.0L ML/MIN 02/23/2012 Unkno wn THYROID STIMULATING HORMONE 08121 TSH 2.450 uIU/ML 02/23/2012 Unknown COMPREHENSIVE METABOLIC 83527 AST 22 U/L 2011 Unknown COMPREHENSIVE METABOLIC 44413 ALT 14 IU/L 2011 Unknown COMPREHENSIVE METABOLIC 94490 BUN 21 MG/DL 2011 Unknown COMPREHENSIVE METABOLIC 03554 ALBUMIN 4.3 GM/DL 2011 Unknown COMPREHENSIVE METABOLIC 67916 CHLORIDE 106 MMOL/L 04/01 Unknown COMPREHENSIVE METABOLIC 16956 BILI TOT 0.4 MG/DL 2011 Unknown COMPREHENSIVE METABOLIC 84559 ALK PHOS 80 U/L 2011 Unknown COMPREHENSIVE METABOLIC 44849 SODIUM 141 MMOL/L 04/01 Unknown COMPREHENSIVE METABOLIC 31894 CREATININE 1.13 MG/DL 03/08 Unknown COMPREHENSIVE METABOLIC 92364 CALCIUM 9.4 MG/DL 2011 Unknown COMPREHENSIVE METABOLIC 07585 POTASSIUM 4.3 MMOL/L 04/01 Unknown COMPREHENSIVE METABOLIC 49526 PROT TOT 6.7 GM/DL 2011 Unknown COMPREHENSIVE METABOLIC 16338 Glucose 98 MG/DL 2011 Unknown COMPREHENSIVE METABOLIC 53140 BICARB 25 MMOL/L 2011 Unknown COMPREHENSIVE METABOLIC 56902 ANION GAP 10 MEQ/L 2011 Unknown LIPID GROUP 21712 HDL TEST 44 MG/DL 04/01/2011 Unknown LIPID GROUP 24313 TRIG 164 MG/DL 04/01/2011 Unknown LIPID GROUP 80994 TEST LDL 98 MG/DL 04/01/2011 Unknown LIPID GROUP 16462 CHOL 175 MG/DL 04/01/2011 Unknown LIPID GROUP 23202 RCHOL/HDL 3.98 RATIO 04/01/2011 Unknow n COMPLETE BLOOD COUNT 52896 WBC 6.7 10e9/L 04/01/19 12 Unknown COMPLETE BLOOD COUNT 55007 RBC 4.36 10e12/L 2011 Unknown COMPLETE BLOOD COUNT 72922 HGB 12.9 g/dL 2 Unknown COMPLETE BLOOD COUNT 11645 HCT DET 39.4 % 2 Unknown COMPLETE BLOOD COUNT 23126 MCV 90.4 fL 2 Unknown COMPLETE BLOOD COUNT 38640 MCH 29.6 pg 2 Unknown COMPLETE BLOOD COUNT 37000 MCHC 32.7 g/dL 2 Unknown COMPLETE BLOOD COUNT 85369 PLT 184 10e9/L 04/01/19 12 Unknown COMPLETE BLOOD COUNT 63350 MPV 10.9 fL 2 Unknown COMPLETE BLOOD COUNT 13979 CINTHYA % 41.5 % 2 Unknown COMPLETE BLOOD COUNT 31075 LY % 45.7 % 2 Unknown COMPLETE BLOOD COUNT 60041 MON % 9.4 % 2 Unknown COMPLETE BLOOD COUNT 91721 EOS % 3.0 % 2 Unknown COMPLETE BLOOD COUNT 21962 BASO % 0.4 % 2 Unknown COMPLETE BLOOD COUNT 80505 RDW 13.2 % 2 Unknown COMPLETE BLOOD COUNT 22182 ABS CINTHYA 2.78 10e9/L 012 Unknown COMPLETE BLOOD COUNT 26036 ABS LYMPH 3.06 10e9/L 012 Unknown COMPLETE BLOOD COUNT 54271 ABS MONO 0.63 10e9/L 012 Unknown COMPLETE BLOOD COUNT 45914 ABS EOS 0.20 10e9/L 012 Unknown COMPLETE BLOOD COUNT 56349 ABS BASO 0.03 10e9/L 012 Unknown COMPLETE BLOOD COUNT 62056 RDW-SD 42.3 fL 2 Unknown GFR CALC [id number] GFR AA 57.0L ML/MIN 04/01/2011 Unknow n GFR CALC [id number] GFR NON-AA 47.0L ML/MIN 04/01/2011 Unkno wn THYROID STIMULATING HORMONE 43658 TSH 2.663 uIU/ML 04/01/2011 Unknown FREE T4 24938 FREE T4 1.15 NG/DL 04/01/2011 Unknown THYROID STIMULATING HORMONE 05924 TSH 1.908 uIU/ML 07/06/2010 Unknown COMPLETE BLOOD COUNT 73586 WBC 6.4 10e9/L 07/07/19 11 Unknown COMPLETE BLOOD COUNT 77039 RBC 3.92 10e12/L 2010 Unknown COMPLETE BLOOD COUNT 24279 HGB 11.8 g/dL 1 Unknown COMPLETE BLOOD COUNT 18269 HCT DET 36.0 % 1 Unknown COMPLETE BLOOD COUNT 43832 MCV 91.8 fL 1 Unknown COMPLETE BLOOD COUNT 27091 MCH 30.1 pg 1 Unknown COMPLETE BLOOD COUNT 95368 MCHC 32.8 g/dL 1 Unknown COMPLETE BLOOD COUNT 08956 PLT 176 10e9/L 07/07/19 11 Unknown COMPLETE BLOOD COUNT 63641 MPV 11.4 fL 1 Unknown COMPLETE BLOOD COUNT 36427 CINTHYA % 50.4 % 1 Unknown COMPLETE BLOOD COUNT 45815 LY % 35.5 % 1 Unknown COMPLETE BLOOD COUNT 96974 MON % 10.2 % 1 Unknown COMPLETE BLOOD COUNT 78105 EOS % 3.3 % 1 Unknown COMPLETE BLOOD COUNT 59388 BASO % 0.6 % 1 Unknown COMPLETE BLOOD COUNT 20204 RDW 13.7 % 1 Unknown COMPLETE BLOOD COUNT 59154 ABS CINTHYA 3.23 10e9/L 011 Unknown COMPLETE BLOOD COUNT 89331 ABS LYMPH 2.27 10e9/L 011 Unknown COMPLETE BLOOD COUNT 57986 ABS MONO 0.65 10e9/L 011 Unknown COMPLETE BLOOD COUNT 01501 ABS EOS 0.21 10e9/L 011 Unknown COMPLETE BLOOD COUNT 93334 ABS BASO 0.04 10e9/L 011 Unknown COMPLETE BLOOD COUNT 38292 RDW-SD 45.3 fL 1 Unknown GFR CALC [id number] GFR AA >60 ML/MIN 07/06/2010 Unknown GFR CALC 3553581 GFR NON-AA 53.0L ML/MIN 07/06/2010 Unkno wn FREE T4 07008 FREE T4 1.20 NG/DL 07/06/2010 Unknown COMPREHENSIVE METABOLIC 32674 AST 17 U/L 2010 Unknown COMPREHENSIVE METABOLIC 80115 ALT 9 IU/L 2010 Unknown COMPREHENSIVE METABOLIC 28035 BUN 16 MG/DL 2010 Unknown COMPREHENSIVE METABOLIC 83230 ALBUMIN 4.0 GM/DL 2010 Unknown COMPREHENSIVE METABOLIC 64468 CHLORIDE 108 MMOL/L 07/06 Unknown COMPREHENSIVE METABOLIC 39325 BILI TOT 0.5 MG/DL 2010 Unknown COMPREHENSIVE METABOLIC 35336 ALK PHOS 76 U/L 2010 Unknown COMPREHENSIVE METABOLIC 14629 SODIUM 139 MMOL/L 07/06 Unknown COMPREHENSIVE METABOLIC 67585 CREATININE 1.02 MG/DL 04/2010 Unknown COMPREHENSIVE METABOLIC 68818 CALCIUM 9.2 MG/DL 2010 Unknown COMPREHENSIVE METABOLIC 94574 POTASSIUM 4.5 MMOL/L 07/06 Unknown COMPREHENSIVE METABOLIC 82929 PROT TOT 6.1 GM/DL 2010 Unknown COMPREHENSIVE METABOLIC 79932 Glucose 93 MG/DL 2010 Unknown COMPREHENSIVE METABOLIC 06196 BICARB 26 MMOL/L 2010 Unknown COMPREHENSIVE METABOLIC 69705 ANION GAP 5 MEQ/L 2010 Unknown LIPID GROUP 25751 HDL TEST 46 MG/DL 07/06/2010 Unknown LIPID GROUP 00841 TRIG 102 MG/DL 07/06/2010 Unknown LIPID GROUP 02350 TEST LDL 88 MG/DL 07/06/2010 Unknown LIPID GROUP 37784 CHOL 154 MG/DL 07/06/2010 Unknown LIPID GROUP 14447 RCHOL/HDL 3.35 RATIO 07/06/2010 Unknow n Procedures Procedure Codes Date ROUTINE VENIPUNCTURE CPT-4: 11719 03/13/2019 ASSAY THYROID STIM HORMONE CPT-4: 85660 03/13/2019 COMPLETE CBC W/AUTO DIFF WBC CPT-4: 05616 03/13/2019 COMPREHEN METABOLIC PANEL CPT-4: 42631 03/13/2019 ROUTINE VENIPUNCTURE CPT-4: 33784 01/23/2019 LIPID PANEL CPT-4: 12495 01/23/2019 FLU VACC PRSV FREE INC ANTIG 65 AND OLDER CPT-4: 33725 12/26/2018 FLU VACC PRSV FREE INC ANTIG 65 AND OLDER CPT-4: 35326 12/26/2018 ADMIN INFLUENZA VIRUS VAC CPT-4: G0008 12/26/2018 COMPREHEN METABOLIC PANEL CPT-4: 10037 12/15/2018 ROUTINE VENIPUNCTURE CPT-4: 88153 12/15/2018 ROUTINE VENIPUNCTURE CPT-4: 19122 08/14/2018 ASSAY THYROID STIM HORMONE CPT-4: 56705 08/14/2018 COMPREHEN METABOLIC PANEL CPT-4: 11373 08/14/2018 COMPLETE CBC W/AUTO DIFF WBC CPT-4: 69898 08/14/2018 URINALYSIS NONAUTO W/O SCOPE CPT-4: 84570 05/10/2018 URINE CULTURE/ COLONY COUNT CPT-4: 97755 05/10/2018 URINE CULTURE/ COLONY COUNT CPT-4: 00665 12/06/2017 ROUTINE VENIPUNCTURE CPT-4: 16246 11/30/2017 ASSAY OF FREE THYROXINE CPT-4: 66928 11/30/2017 ASSAY THYROID STIM HORMONE CPT-4: 61991 11/30/2017 COMPLETE CBC W/AUTO DIFF WBC CPT-4: 47662 11/30/2017 METABOLIC PANEL TOTAL CA CPT-4: 45118 11/30/2017 FLU VACC PRSV FREE INC ANTIG 65 AND OLDER CPT-4: 39942 11/22/2017 ASSAY, GLUCOSE, BLOOD QUANT CPT-4: 29407 11/22/2017 ADMIN INFLUENZA VIRUS VAC CPT-4: G0008 11/22/2017 ROUTINE VENIPUNCTURE CPT-4: 22398 09/27/2017 COMPREHEN METABOLIC PANEL CPT-4: 93260 09/27/2017 COMPLETE CBC W/AUTO DIFF WBC CPT-4: 55704 09/27/2017 A1C HPLC CPT-4: 13136 09/27/2017 ASSAY OF TROPONIN QUANT CPT-4: 83125 09/27/2017 LIPID PANEL CPT-4: 13394 09/27/2017 THER/PROPH/DIAG INJ SC/IM CPT-4: 42697 05/30/2017 TRIAMCINOLONE ACET INJ NOS CPT-4: J3301 05/30/2017 URINALYSIS NONAUTO W/O SCOPE CPT-4: 85188 04/18/2017 URINE CULTURE/ COLONY COUNT CPT-4: 14761 04/18/2017 FLU VACC PRSV FREE INC ANTIG 65 AND OLDER CPT-4: 56379 12/10/2016 ADMIN INFLUENZA VIRUS VAC CPT-4: G0008 12/10/2016 ROUTINE VENIPUNCTURE CPT-4: 26253 11/01/2016 COMPREHEN METABOLIC PANEL CPT-4: 17916 11/01/2016 COMPLETE CBC W/AUTO DIFF WBC CPT-4: 10284 11/01/2016 LIPID PANEL CPT-4: 03244 11/01/2016 A1C HPLC CPT-4: 31207 11/01/2016 ASSAY THYROID STIM HORMONE CPT-4: 14507 11/01/2016 ROUTINE VENIPUNCTURE CPT-4: 61911 05/13/2016 ASSAY THYROID STIM HORMONE CPT-4: 11667 05/13/2016 COMPREHEN METABOLIC PANEL CPT-4: 13544 05/13/2016 COMPLETE CBC W/AUTO DIFF WBC CPT-4: 09952 05/13/2016 A1C HPLC CPT-4: 10295 05/13/2016 FLU VACC PRSV FREE INC ANTIG 65 AND OLDER CPT-4: 56374 12/12/2015 ADMIN INFLUENZA VIRUS VAC CPT-4: G0008 12/12/2015 ROUTINE VENIPUNCTURE CPT-4: 45208 11/25/2015 ASSAY OF FREE THYROXINE CPT-4: 20693 11/25/2015 ASSAY THYROID STIM HORMONE CPT-4: 94869 11/25/2015 COMPREHEN METABOLIC PANEL CPT-4: 04780 11/25/2015 COMPLETE CBC W/AUTO DIFF WBC CPT-4: 15943 11/25/2015 LIPID PANEL CPT-4: 41934 11/25/2015 A1C HPLC CPT-4: 01452 11/25/2015 URINALYSIS NONAUTO W/O SCOPE CPT-4: 53704 05/21/2015 ROUTINE VENIPUNCTURE CPT-4: 96167 02/19/2015 METABOLIC PANEL TOTAL CA CPT-4: 56630 02/19/2015 PRESCRIP TRANSMIT VIA ERX SY CPT-4: G8553 02/19/2015 FLU VACC PRSV FREE INC ANTIG 65 AND OLDER CPT-4: 34759 12/20/2014 ADMIN INFLUENZA VIRUS VAC CPT-4: G0008 12/20/2014 URINALYSIS NONAUTO W/O SCOPE CPT-4: 97675 11/19/2014 URINE CULTURE/ COLONY COUNT CPT-4: 87862 11/19/2014 ROUTINE VENIPUNCTURE CPT-4: 89555 11/14/2014 ASSAY OF FREE THYROXINE CPT-4: 54860 11/14/2014 ASSAY THYROID STIM HORMONE CPT-4: 20084 11/14/2014 COMPREHEN METABOLIC PANEL CPT-4: 19622 11/14/2014 COMPLETE CBC W/AUTO DIFF WBC CPT-4: 12985 11/14/2014 LIPID PANEL CPT-4: 86058 11/14/2014 A1C HPLC CPT-4: 10852 11/14/2014 CERUM REMOVAL CPT-4: 14548 09/27/2014 PRESCRIP TRANSMIT VIA ERX SY CPT-4: G8553 07/11/2014 FLUZONE, 5ML (Medicare) CPT-4: Q2038 12/21/2013 ADMIN INFLUENZA VIRUS VAC CPT-4: G0008 12/21/2013 PRESCRIP TRANSMIT VIA ERX SY CPT-4: G8553 10/17/2013 PRESCRIP TRANSMIT VIA ERX SY CPT-4: G8553 09/24/2013 PRESCRIP TRANSMIT VIA ERX SY CPT-4: G8553 05/31/2013 ROUTINE VENIPUNCTURE CPT-4: 37733 03/28/2013 ASSAY OF FREE THYROXINE CPT-4: 86650 03/28/2013 ASSAY THYROID STIM HORMONE CPT-4: 20862 03/28/2013 COMPREHEN METABOLIC PANEL CPT-4: 45272 03/28/2013 COMPLETE CBC W/AUTO DIFF WBC CPT-4: 51824 03/28/2013 LIPID PANEL CPT-4: 27064 03/28/2013 A1C HPLC CPT-4: 21711 03/28/2013 VITAMIN B 12 FOLIC ACID CPT-4: 80608|75061 03/28/2013 PRESCRIP TRANSMIT VIA ERX SY CPT-4: G8553 03/26/2013 PRESCRIP TRANSMIT VIA ERX SY CPT-4: G8553 12/19/2012 FLUZONE, 5ML (Medicare) CPT-4: Q2038 11/27/2012 ADMIN INFLUENZA VIRUS VAC CPT-4: G0008 11/27/2012 PRESCRIP TRANSMIT VIA ERX SY CPT-4: G8553 10/04/2012 PRESCRIP TRANSMIT VIA ERX SY CPT-4: G8553 07/14/2012 ROUTINE VENIPUNCTURE CPT-4: 81664 02/23/2012 ASSAY OF FREE THYROXINE CPT-4: 18592 02/23/2012 ASSAY THYROID STIM HORMONE CPT-4: 07520 02/23/2012 COMPREHEN METABOLIC PANEL CPT-4: 03490 02/23/2012 COMPLETE CBC W/AUTO DIFF WBC CPT-4: 60309 02/23/2012 LIPID PANEL CPT-4: 10018 02/23/2012 A1C GLYCOSYLATED HEMOGLOBIN TEST CPT-4: 37531 012 CERUM REMOVAL CPT-4: 37842 02/22/2012 PRESCRIP TRANSMIT VIA ERX SY CPT-4: G8553 02/22/2012 PRESCRIP TRANSMIT VIA ERX SY CPT-4: G8553 12/15/2011 FLUZONE, 5ML (Medicare) CPT-4: Q2038 12/02/2011 ADMIN INFLUENZA VIRUS VAC CPT-4: G0008 12/02/2011 ASSAY, GLUCOSE, BLOOD QUANT CPT-4: 30325 09/21/2011 URINALYSIS NONAUTO W/O SCOPE CPT-4: 72498 09/16/2011 URINE CULTURE/ COLONY COUNT CPT-4: 43058 09/16/2011 ROUTINE VENIPUNCTURE CPT-4: 35647 09/15/2011 ASSAY OF FREE THYROXINE CPT-4: 14105 09/15/2011 ASSAY THYROID STIM HORMONE CPT-4: 36467 09/15/2011 COMPREHEN METABOLIC PANEL CPT-4: 80984 09/15/2011 COMPLETE CBC W/AUTO DIFF WBC CPT-4: 02096 09/15/2011 LIPID PANEL CPT-4: 36377 09/15/2011 ASSAY OF INSULIN CPT-4: 93351 09/15/2011 A1C GLYCOSYLATED HEMOGLOBIN TEST CPT-4: 10392 07/11/2 012 DRAIN/INJECT JOINT/BURSA CPT-4: 50884 08/16/2011 METHYLPREDNISOLONE 40 MG INJ CPT-4: J1030 08/16/2011 TRIAMCINOLONE ACET INJ NOS CPT-4: J3301 08/16/2011 PRESCRIP TRANSMIT VIA ERX SY CPT-4: G8553 08/03/2011 PRESCRIP TRANSMIT VIA ERX SY CPT-4: G8553 07/26/2011 METHYLPREDNISOLONE 40 MG INJ CPT-4: J1030 06/28/2011 DRAIN/INJECT JOINT/BURSA CPT-4: 48097 06/28/2011 TRIAMCINOLONE ACET INJ NOS CPT-4: J3301 06/28/2011 PRESCRIP TRANSMIT VIA ERX SY CPT-4: G8553 06/28/2011 ROUTINE VENIPUNCTURE CPT-4: 18002 04/01/2011 ASSAY OF FREE THYROXINE CPT-4: 40578 04/01/2011 ASSAY THYROID STIM HORMONE CPT-4: 52571 04/01/2011 COMPREHEN METABOLIC PANEL CPT-4: 22558 04/01/2011 COMPLETE CBC W/AUTO DIFF WBC CPT-4: 29179 04/01/2011 LIPID PANEL CPT-4: 23141 04/01/2011 PRESCRIP TRANSMIT VIA ERX SY CPT-4: G8553 03/31/2011 CERUM REMOVAL CPT-4: 22314 02/11/2011 PRESCRIP TRANSMIT VIA ERX SY CPT-4: G8553 02/11/2011 FLUZONE, 5ML (Medicare) CPT-4: Q2038 12/09/2010 ADMIN INFLUENZA VIRUS VAC CPT-4: G0008 12/09/2010 PRESCRIP TRANSMIT VIA ERX SY CPT-4: G8553 10/15/2010 URINALYSIS NONAUTO W/O SCOPE CPT-4: 63328 09/29/2010 URINE CULTURE/ COLONY COUNT CPT-4: 92632 09/29/2010 CUR TOBACCO NON-USER CPT-4: G8457 09/29/2010 ROUTINE VENIPUNCTURE CPT-4: 03200 07/06/2010 COMPLETE CBC W/AUTO DIFF WBC CPT-4: 44173 07/06/2010 COMPREHEN METABOLIC PANEL CPT-4: 23884 07/06/2010 LIPID PANEL CPT-4: 33444 07/06/2010 ASSAY THYROID STIM HORMONE CPT-4: 30390 07/06/2010 ASSAY OF FREE THYROXINE CPT-4: 02976 07/06/2010 PRESCRIP TRANSMIT VIA ERX SY CPT-4: G8553 07/02/2010 INJ TRIGGER POINT 1/2 MUSCL CPT-4: 89487 04/06/2010 TRIAMCINOLONE ACET INJ NOS CPT-4: J3301 04/06/2010 METHYLPREDNISOLONE 40 MG INJ CPT-4: J1030 04/06/2010 THER/PROPH/DIAG INJ SC/IM CPT-4: 66062 04/01/2010 KETOROLAC TROMETHAMINE INJ CPT-4: J1885 04/01/2010 PRESCRIP TRANSMIT VIA ERX SY CPT-4: G8553 01/22/2010 FLU VACCINE 3 YRS & > IM UP 64 CPT-4: 23722 0 ADMIN INFLUENZA VIRUS VAC CPT-4: G0008 12/10/2009 URINALYSIS NONAUTO W/O SCOPE CPT-4: 18398 12/02/2009 URINE CULTURE/ COLONY COUNT CPT-4: 24933 12/02/2009 PRESCRIP TRANSMIT VIA ERX SY CPT-4: G8553 12/02/2009 THER/PROPH/DIAG INJ SC/IM CPT-4: 65858 09/10/2009 VITAMIN B12 INJECTION CPT-4: J3420 09/10/2009 THER/PROPH/DIAG INJ SC/IM CPT-4: 27507 08/11/2009 VITAMIN B12 INJECTION CPT-4: J3420 08/11/2009 ROUTINE VENIPUNCTURE CPT-4: 31998 06/10/2009 Vital Signs Date Vital 03/20/2019 Blood [...] 1: 142/60 Code: 8480-6 BMI: 38.2 Code: 04136-9 Heart Rate 1: 48 bpm Height: 5'2" Respiratory Rate: 20 bpm SpO2: 98% Tempera ture: 36.7 (C) / 98.1 (F) Weight: 212 lbs 01/10/2018 Blood Pressure 1: 142/64 Code: 8480-6 BMI: 38.5 Code: 73991-8 Heart Rate 1: 52 bpm Height: 5'2" Respiratory Rate: 22 bpm SpO2: 96% Tempera ture: 36.1 (C) / 96.9 (F) Weight: 214 lbs 12/06/2017 Blood Pressure 1: 124/80 Code: 8480-6 BMI: 38.3 Code: 36017-6 Heart Rate 1: 68 bpm Height: 5'2" Respiratory Rate: 20 bpm Temperature: 36 .3 (C) / 97.4 (F) Weight: 213 lbs 11/22/2017 Blood Pressure 1: 132/78 Code: 8480-6 BMI: 37.6 Code: 88157-5 Heart Rate 1: 68 bpm Height: 5'2" Respiratory Rate: 20 bpm SpO2: 97% Tempera ture: 36.8 (C) / 98.2 (F) Weight: 209 lbs 10/20/2017 Blood Pressure 1: 150/76 Code: 8480-6 BMI: 38.5 Code: 59139-1 Heart Rate 1: 64 bpm Height: 5'2" Respiratory Rate: 20 bpm SpO2: 97% Tempera ture: 36.2 (C) / 97.2 (F) Weight: 214 lbs 09/27/2017 Blood Pressure 1: 122/74 Code: 8480-6 BMI: 38.2 Code: 12362-9 Heart Rate 1: 64 bpm Height: 5'2" Respiratory Rate: 18 bpm SpO2: 96% Tempera ture: 35.8 (C) / 96.4 (F) Weight: 212 lbs 08/16/2017 Blood Pressure 1: 124/78 Code: 8480-6 BMI: 37.8 Code: 64754-6 Heart Rate 1: 76 bpm Height: 5'2" Respiratory Rate: 20 bpm Temperature: 36 .8 (C) / 98.3 (F) Weight: 210 lbs 07/07/2017 Blood Pressure 1: 136/70 Code: 8480-6 BMI: 38.0 Code: 60692-4 Heart Rate 1: 68 bpm Height: 5'2" Respiratory Rate: 20 bpm SpO2: 97% Tempera ture: 36.8 (C) / 98.2 (F) Weight: 211 lbs 05/30/2017 Blood Pressure 1: 140/65 Code: 8480-6 Heart Rate 1: 75 bpm Respiratory Rate: 24 bpm SpO2: 95% Temperature: 37.0 (C) / 98.6 (F) We ight: 211 lbs 04/18/2017 Blood Pressure 1: 154/70 Code: 8480-6 BMI: 37.6 Code: 78802-9 Heart Rate 1: 76 bpm Height: 5'2" Respiratory Rate: 20 bpm SpO2: 98% Tempera ture: 36.9 (C) / 98.5 (F) Weight: 209 lbs 10/25/2016 Blood Pressure 1: 156/70 Code: 8480-6 BMI: 37.1 Code: 58025-6 Heart Rate 1: 72 bpm Height: 5'2" Respiratory Rate: 20 bpm SpO2: 97% Tempera ture: 37.0 (C) / 98.6 (F) Weight: 206 lbs 09/20/2016 Blood Pressure 1: 152/78 Code: 8480-6 BMI: 36.8 Code: 21561-4 Heart Rate 1: 78 bpm Height: 5'2" Respiratory Rate: 20 bpm SpO2: 98% Tempera ture: 36.1 (C) / 97.0 (F) Weight: 204 lbs 05/12/2016 Blood Pressure 1: 142/70 Code: 8480-6 BMI: 36.9 Code: 87672-8 Heart Rate 1: 64 bpm Height: 5'2" [...] 1: 122/64 Code: 8480-6 BMI: 39.1 Code: 48240-5 Heart Rate 1: 76 bpm Height: 5'2" Respiratory Rate: 20 bpm Temperature: 36 .8 (C) / 98.2 (F) Weight: 217 lbs 05/21/2015 Blood Pressure 1: 144/70 Code: 8480-6 BMI: 39.4 Code: 56964-9 Heart Rate 1: 76 bpm Height: 5'2" Respiratory Rate: 20 bpm Temperature: 36 .6 (C) / 97.9 (F) Weight: 219 lbs 02/19/2015 Blood Pressure 1: 152/60 Code: 8480-6 BMI: 39.6 Code: 99190-0 Heart Rate 1: 84 bpm Height: 5'2" Respiratory Rate: 20 bpm Temperature: 37 .0 (C) / 98.6 (F) Weight: 220 lbs 11/13/2014 Blood Pressure 1: 146/76 Code: 8480-6 BMI: 39.8 Code: 13314-7 Heart Rate 1: 88 bpm Height: 5'2" Respiratory Rate: 20 bpm Temperature: 37 .0 (C) / 98.6 (F) Weight: 221 lbs 09/27/2014 Blood Pressure 1: 132/70 Code: 8480-6 BMI: 39.1 Code: 15278-0 Heart Rate 1: 88 bpm Height: 5'2" Respiratory Rate: 20 bpm Temperature: 36 .4 (C) / 97.6 (F) Weight: 217 lbs 07/11/2014 Blood Pressure 1: 132/66 Code: 8480-6 BMI: 39.9 Code: 40517-6 Heart Rate 1: 72 bpm Height: 5'2" Respiratory Rate: 20 bpm Temperature: 36 .9 (C) / 98.4 (F) Weight: 218 lbs 05/23/2014 Blood Pressure 1: 136/80 Code: 8480-6 Heart Rate 1: 76 bpm Respiratory Rate: 20 bpm Temperature: 36.7 (C) / 98.0 (F) Weight: 224 lbs 03/20/2014 Blood Pressure 1: 134/78 Code: 8480-6 BMI: 39.7 Code: 78407-1 Heart Rate 1: 84 bpm Height: 5'2" Respiratory Rate: 20 bpm Temperature: 36 .7 (C) / 98.0 (F) Weight: 217 lbs 10/17/2013 Blood Pressure 1: 146/78 Code: 8480-6 BMI: 39.5 Code: 41446-6 Heart Rate 1: 82 bpm Height: 5'2" Respiratory Rate: 18 bpm Temperature: 35 .6 (C) / 96.1 (F) Weight: 216 lbs 09/24/2013 Blood Pressure 1: 134/70 Code: 8480-6 BMI: 37.9 Code: 38053-3 Heart Rate 1: 80 bpm Height: 5'3" Respiratory Rate: 20 bpm Temperature: 36 .8 (C) / 98.2 (F) Weight: 214 lbs 05/31/2013 Blood Pressure 1: 132/70 Code: 8480-6 BMI: 37.6 Code: 27239-3 Heart Rate 1: 80 bpm Height: 5'3" Respiratory Rate: 20 bpm Temperature: 36 .8 (C) / 98.3 (F) Weight: 212 lbs 03/26/2013 Blood Pressure 1: 116/74 Code: 8480-6 Heart Rate 1: 68 bpm Respiratory Rate: 20 bpm Temperature: 36.2 (C) / 97.1 (F) Weight: 212 lbs 12/19/2012 Blood Pressure 1: 132/82 Code: 8480-6 BMI: 37.4 Code: 84751-7 Heart Rate 1: 76 bpm Height: 5'3" Respiratory Rate: 20 bpm Temperature: 36 .7 (C) / 98.0 (F) Weight: 211 lbs 12/04/2012 Blood Pressure 1: 130/76 Code: 8480-6 He art Rate 1: 78 bpm 11/27/2012 Blood Pressure 1: 140/82 Code: 8480-6 BMI: 36.8 Code: 20071-3 Heart Rate 1: 66 bpm Height: 5'3" Respiratory Rate: 20 bpm Temperature: 36 .1 (C) / 96.9 (F) Weight: 208 lbs 10/04/2012 Blood Pressure 1: 138/80 Code: 8480-6 BMI: 36.4 Code: 90735-9 Heart Rate 1: 72 bpm Height: 5'4" Respiratory Rate: 20 bpm Temperature: 36 .7 (C) / 98.0 (F) Weight: 212 lbs 07/27/2012 Blood Pressure 1: 124/70 Code: 8480-6 BMI: 36.9 Code: 12577-6 Heart Rate 1: 60 bpm Height: 5'4" Temperature: 36.1 (C) / 97.0 (F) Weight: 215 lbs 07/14/2012 Blood Pressure 1: 132/86 Code: 8480-6 BMI: 36.9 Code: 13147-2 Heart Rate 1: 76 bpm Height: 5'4" Respiratory Rate: 20 bpm Temperature: 36 .8 (C) / 98.2 (F) Weight: 215 lbs 06/08/2012 Blood Pressure 1: 134/82 Code: 8480-6 BMI: 36.6 Code: 83683-4 Heart Rate 1: 72 bpm Height: 5'4" Respiratory Rate: 20 bpm Temperature: 36 .3 (C) / 97.4 (F) Weight: 213 lbs 02/22/2012 Blood Pressure 1: 142/80 Code: 8480-6 BMI: 37.1 Code: 41005-4 Heart Rate 1: 76 bpm Height: 5'4" Respiratory Rate: 20 bpm Temperature: 36 .8 (C) / 98.3 (F) Weight: 216 lbs 12/28/2011 Blood Pressure 1: 128/68 Code: 8480-6 BMI: 37.6 Code: 01309-1 Heart Rate 1: 72 bpm Height: 5'4" [...] 1: 128/78 Code: 8480-6 BMI: 38.1 Code: 43644-1 Heart Rate 1: 84 bpm Height: 5'4" Respiratory Rate: 20 bpm Temperature: 36 .9 (C) / 98.4 (F) Weight: 222 lbs 08/16/2011 Blood Pressure 1: 138/80 Code: 8480-6 BMI: 37.9 Code: 64850-0 Heart Rate 1: 74 bpm Height: 5'4" Temperature: 36.1 (C) / 97.0 (F) Weight: 221 lbs 08/03/2011 Blood Pressure 1: 126/78 Code: 8480-6 BMI: 38.4 Code: 49247-4 Heart Rate 1: 72 bpm Height: 5'4" Respiratory Rate: 20 bpm Temperature: 36 .7 (C) / 98.0 (F) Weight: 224 lbs 07/26/2011 Blood Pressure 1: 138/72 Code: 8480-6 BMI: 38.4 Code: 28950-4 Heart Rate 1: 72 bpm Height: 5'4" Respiratory Rate: 20 bpm Temperature: 36 .6 (C) / 97.9 (F) Weight: 224 lbs 06/28/2011 Blood Pressure 1: 122/78 Code: 8480-6 BMI: 38.8 Code: 49560-5 Heart Rate 1: 88 bpm Height: 5'4" Respiratory Rate: 20 bpm Temperature: 36 .6 (C) / 97.8 (F) Weight: 226 lbs 03/31/2011 Blood Pressure 1: 116/60 Code: 8480-6 BMI: 38.1 Code: 51472-6 Heart Rate 1: 92 bpm Height: 5'4" Respiratory Rate: 20 bpm Temperature: 36 .8 (C) / 98.2 (F) Weight: 222 lbs 02/11/2011 Blood Pressure 1: 118/62 Code: 8480-6 BMI: 37.9 Code: 30329-6 Heart Rate 1: 80 bpm Height: 5'4" Temperature: 36.5 (C) / 97.7 (F) Weight: 221 lbs 10/15/2010 Blood Pressure 1: 132/70 Code: 8480-6 Heart Rate 1: 84 bpm Respiratory Rate: 20 bpm Temperature: 36.7 (C) / 98.0 (F) Weight: 221 lbs 09/29/2010 Blood Pressure 1: 114/72 Code: 8480-6 BMI: 37.6 Code: 36535-2 Heart Rate 1: 76 bpm Height: 5'4" [...] 1: 120/70 Code: 8480-6 BMI: 38.3 Code: 15708-5 Heart Rate 1: 88 bpm Height: 5'5" [...] but had more that day. [facility] [employer] began to feel very ill and became [...] 09/27/2014 pain, limb 07/11/2014 follow up 05/23/2014 [facility] fwup high blood pressure 03/20/2014 injection(s) 12/21/2013 flu shot sinusitis 10/17/2013 high blood pressure 09/24/2013 cough 05/31/[address] Kevin cnode's office so he started he on amlodipine [...] 06/09/2009 Encounters Encounter Performer Location Codes Date ([id number]) OFFICE/OUTPATIENT VISIT EST Diagnosis: Essential (primary) hypertension[ICD10: I10] Diagnosis: Palpitations[ICD10: R00.2] Vikki Ciscofunmilayosakshi VIKKI AlejandraSujata GA BENJAMIN [facility] CPT-4: 62149 03/20/2019 ([id number]) OFFICE/OUTPATIENT VISIT EST Diagnosis: Essential hypertension[ICD10: I10] Diagnosis: Palpitations[ICD10: R00.2] Diagnosis: Stress reaction[ICD10: F43.0] Vikki Ciscobhavya VIKKI AlejandraSujata GLENIS [facility] CPT-4: 86091 03/13/2019 ([id number]) NURSE/OUTPATIENT VISIT EST Diagnosis: Mixed hyperlipidemia[ICD10: E78.2] Vikki Ciscobhavya ESCALANTE AlejandraSujata GLENIS [facility] CPT-4: 34393 01/23/2019 ([id number]) NURSE/OUTPATIENT VISIT EST Diagnosis: FLU VACCINE[ICD10: Z23] Vikki CORTEZLINE AlejandraSujata [place]ALL [facility] CPT-4: 03331 12/26/2018 ([id number]) NURSE/OUTPATIENT VISIT EST Diagnosis: Chronic kidney disease, stage 1[ICD10: N18.1] Vikki CORTEZLINE AlejandraSujata GLENIS [facility] CPT-4: 29935 12/15/2018 ([id number]) OFFICE/OUTPATIENT VISIT EST Diagnosis: Acute serous otitis media, left ear[ICD10: H65.02] Jennifer CORTEZLINE AlejandraSujata GLENIS [facility] CPT-4: 78872 11/07/2018 ([id number]) OFFICE/OUTPATIENT VISIT EST Diagnosis: Essential (primary) hypertension[ICD10: I10] Diagnosis: 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] Diagnosis: Hypoglycemia, unspecified[ICD10: E16.2] Diagnosis: Other fatigue[ICD10: R53.83] Diagnosis: Urinary tract infection, site not specified[ICD10: N39.0] Vikki PIKE Alyssa GUAMAN [facility] CPT-4: 88375 08/14/2018 ([id number]) OFFICE/OUTPATIENT VISIT EST Diagnosis: Essential (primary) hypertension[ICD10: I10] Diagnosis: Gastro-esophageal reflux disease without esophagitis[ICD10: K21.9] Diagnosis: Urinary tract infection, site not specified[ICD10: N39.0] Vikki GUAMAN DO [facility] CPT-4: 86434 05/10/2018 ([id number]) OFFICE/OUTPATIENT VISIT EST Diagnosis: Gastro-esophageal reflux disease without esophagitis[ICD10: K21.9] Diagnosis: Epigastric pain[ICD10: R10.13] Vikki GUAMAN DO [facility] CPT-4: 10950 02/14/2018 ([id number]) OFFICE/OUTPATIENT VISIT EST Diagnosis: 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] Diagnosis: Essential (primary) hypertension[ICD10: I10] Diagnosis: Generalized anxiety disorder[ICD10: F41.1] Diagnosis: Gastro-esophageal reflux disease without esophagitis[ICD10: K21.9] Vikki GUAMAN Absolute Antibody [facility] CPT-4: 63366 01/10/2018 OFFICE/OUTPATIENT VISIT EST Diagnosis: Gastro-esophageal reflux disease without esophagitis[ICD10: K21.9] Diagnosis: Palpitations[ICD10: R00.2] Diagnosis: Urinary tract infection, site not specified[ICD10: N39.0] Diagnosis: Generalized anxiety disorder[ICD10: F41.1] Vikki GUAMAN Absolute Antibody [facility] CPT-4: 32816 12/06/2017 ([id number]) NURSE/OUTPATIENT VISIT EST Diagnosis: 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] Diagnosis: Hypoglycemia, unspecified[ICD10: E16.2] Diagnosis: Dizziness and giddiness[ICD10: R42] Diagnosis: Occlusion and stenosis of bilateral carotid arteries[ICD10: I65.23] Vikki GUAMAN Absolute Antibody [facility] CPT-4: 76387 11/30/2017 OFFICE/OUTPATIENT VISIT EST Diagnosis: Epigastric pain[ICD10: R10.13] Diagnosis: Generalized anxiety disorder[ICD10: F41.1] Diagnosis: FLU VACCINE[ICD10: Z23] Vikki BALL [facility] CPT-4: 85618 11/22/2017 ([id number]) OFFICE/OUTPATIENT VISIT EST Diagnosis: Essential (primary) hypertension[ICD10: I10] Diagnosis: Hypoglycemia, unspecified[ICD10: E16.2] Diagnosis: Gastro-esophageal reflux disease without esophagitis[ICD10: K21.9] [facility] 70053 10/20/2017 ([id number]) OFFICE/OUTPATIENT VISIT EST Diagnosis: Dizziness and giddiness[ICD10: R42] Jennifer CORTEZNadine NIÑO Alyssa [facility] CPT-[facility]: 01069 09/27/2017 ([id number]) OFFICE/OUTPATIENT VISIT EST Diagnosis: Cervicalgia[ICD10: M54.2] Diagnosis: Other spondylosis with radiculopathy, cervical region[ICD10: M47.22] Vikki [facility] CPT-[facility]: 65974 08/16/2017 ([id number]) OFFICE/OUTPATIENT VISIT EST Diagnosis: Hypoglycemia, unspecified[ICD10: E16.2] Diagnosis: Other spondylosis with radiculopathy, cervical region[ICD10: M47.22] Diagnosis: Vertigo of central origin, 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] Diagnosis: 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] Vikki [facility] CPT[facility]: 23760 07/07/2017 ([id number]) OFFICE/OUTPATIENT VISIT EST Diagnosis: Benign paroxysmal vertigo, bilateral[ICD10: H81.13] Diagnosis: Otalgia, bilateral[ICD10: H92.03] Jennifer CARNEY Deidra Alyssa [facility] CPT-[facility]: 52644 05/30/2017 ([id number]) OFFICE/OUTPATIENT VISIT EST Diagnosis: Low back pain[ICD10: M54.5] Diagnosis: Radiculopathy, lumbosacral region[ICD10: M54.17] Diagnosis: Left lower quadrant pain[ICD10: R10.32] Vikki GUAMAN [facility] CPT-4: 43874 04/18/2017 ([id number]) OFFICE/OUTPATIENT VISIT EST Diagnosis: FLU VACCINE[ICD10: Z23] Vikki BALL [facility] CPT-4: 68572 12/10/2016 ([id number]) OFFICE/OUTPATIENT VISIT EST Diagnosis: Mixed hyperlipidemia[ICD10: E78.2] Diagnosis: Essential (primary) hypertension[ICD10: I10] Diagnosis: 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] Diagnosis: Impaired fasting glucose[ICD10: R73.01] Diagnosis: Other fatigue[ICD10: R53.83] Vikki GUAMAN [facility] CPT-4: 86546 11/01/2016 ([id number]) OFFICE/OUTPATIENT VISIT EST Diagnosis: Pain in thoracic spine[ICD10: M54.6] Diagnosis: Other intervertebral disc degeneration, 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] Vikki GUAMAN [facility] CPT-4: 82204 10/25/2016 ([id number]) OFFICE/OUTPATIENT VISIT EST Diagnosis: Left lower quadrant pain[ICD10: R10.32] Diagnosis: Low back pain[ICD10: M54.5] Vikki RUBI [facility] CPT-4: 26989 09/20/2016 ([id number]) OFFICE/OUTPATIENT VISIT EST Diagnosis: Mixed hyperlipidemia[ICD10: E78.2] Diagnosis: Essential (primary) hypertension[ICD10: I10] Diagnosis: Hypoglycemia, unspecified[ICD10: E16.2] Vikki GUAMAN [facility] CPT-4: 72730 05/13/2016 ([id number]) OFFICE/OUTPATIENT VISIT EST Diagnosis: Impaired fasting glucose[ICD10: R73.01] Diagnosis: Mastodynia[ICD10: N64.4] Diagnosis: Mixed hyperlipidemia[ICD10: E78.2] Diagnosis: Essential (primary) hypertension[ICD10: I10] Diagnosis: Other fatigue[ICD10: R53.83] Vikki GUAMAN [facility] CPT-4: 85669 05/12/2016 ([id number]) OFFICE/OUTPATIENT VISIT EST Diagnosis: Acute upper respiratory infection, unspecified[ICD10: J06.9] Yue GUAMAN DO [facility] CPT-4: 80890 03/18/2016 ([id number]) OFFICE/OUTPATIENT VISIT EST Diagnosis: Acute mastoiditis without complications, right ear[ICD10: H70.001] Vikki GUAMAN DO [facility] CPT-4: 37108 02/06/2016 ([id number]) OFFICE/OUTPATIENT VISIT EST Diagnosis: FLU VACCINE[ICD10: Z23] Vikki BALL [facility] CPT-4: 64530 12/12/2015 ([id number]) OFFICE/OUTPATIENT VISIT EST Diagnosis: Mixed hyperlipidemia[ICD10: E78.2] Diagnosis: Essential (primary) hypertension[ICD10: I10] 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81] Diagnosis: Dizziness and giddiness[ICD10: R42] Diagnosis: Essential (primary) hypertension[ICD10: I10] Diagnosis: History of falling[ICD10: Z91.81] Vikkiluther CARNEY Deidra GUAMAN [facility] CPT-4: 35990 02/19/2015 ([id number]) OFFICE/OUTPATIENT VISIT EST Diagnosis: FLU VACCINE[ICD10: Z23] Vikki CORTEZLINE Alyssa BALL [facility] CPT-4: 59114 12/20/2014 ([id number]) OFFICE/OUTPATIENT VISIT EST Diagnosis: Acute renal failure[ICD9: 584.9] Diagnosis: POLYURIA[ICD9: 788.42] Vikki PIKE AlejandraSujata MATY Rees [facility] CPT-4: 83700 11/19/2014 ([id number]) OFFICE/OUTPATIENT VISIT EST Diagnosis: HYPERLIPIDEMIA NEC/NOS[ICD9: 272.4] Diagnosis: HYPERTENSION[ICD9: 401.9] Diagnosis: CAD[ICD9: 414.00] Diagnosis: Hyperglycemia[ICD9: 790.29] Diagnosis: MALAISE AND FATIGUE[ICD9: 780.79] Vikki Conde AlejandraSujata GLENIS [facility] CPT-4: 73614 11/14/2014 ([id number]) OFFICE/OUTPATIENT VISIT EST Diagnosis: MALAISE AND FATIGUE[ICD9: 780.79] Diagnosis: HYPOGLYCEMIA[ICD9: 251.2] Diagnosis: Grieving[ICD9: 309.0] Diagnosis: ABDOMINAL PAIN[ICD9: 789.00] Vikki Ciscobhavya PIKE AlejandraSujata GLENIS [facility] CPT-4: 66084 11/13/2014 OFFICE/OUTPATIENT VISIT EST Diagnosis: CERUMEN IMPACTION[ICD9: 380.4] Diagnosis: EUSTACHIAN TUBE DYSFUNCTION[ICD9: 381.81] Jessenia Penny PIKE AlejandraSujata GLENIS [facility] CPT-4: 69451 09/27/2014 ([id number]) OFFICE/OUTPATIENT VISIT EST Diagnosis: Leg pain[ICD9: 729.5] Diagnosis: SUPERFIC PHLEBITIS-LEG[ICD9: 451.0] Vikki NIÑO AlejandraSujata GLENIS [facility] CPT-4: 94892 07/11/2014 ([id number]) OFFICE/OUTPATIENT VISIT EST Diagnosis: Thoracic back pain[ICD9: 724.1] Diagnosis: SPASM OF MUSCLE[ICD9: 728.85] Vikki PIKE AlejandraSujtaa GLENIS [facility] CPT-4: 45577 05/23/2014 ([id number]) OFFICE/OUTPATIENT VISIT EST Diagnosis: DIZZINESS/VERTIGO[ICD9: 780.4] Diagnosis: Benign positional vertigo[ICD9: 386.11] Diagnosis: HYPERTENSION[ICD9: 401.9] Diagnosis: Suspicious nevus[ICD9: 238.2] Vikki GUAMAN [facility] CPT-4: 83726 03/20/2014 ([id number]) OFFICE/OUTPATIENT VISIT EST Diagnosis: FLU VACCINE[ICD10: Z23] Vikki CID [facility] CPT-4: 46716 12/21/2013 OFFICE/OUTPATIENT VISIT EST Diagnosis: SINUSITIS, ACUTE[ICD9: 461.9] Diagnosis: EUSTACHIAN TUBE DYSFUNCTION[ICD9: 381.81] Jessenia GUAMAN [facility] CPT-4: 30113 10/17/2013 ([id number]) OFFICE/OUTPATIENT VISIT EST Diagnosis: DIZZINESS/VERTIGO[ICD9: 780.4] Diagnosis: HYPERTENSION[ICD9: 401.9] [facility]: 00887 09/24/2013 ([id number]) OFFICE/OUTPATIENT VISIT EST Diagnosis: HYPERTENSION[ICD9: 401.9] Diagnosis: MALAISE AND FATIGUE[ICD9: 780.79] Diagnosis: SINUSITIS, ACUTE[ICD9: 461.9] Vikki GUAMAN [facility] CPT-4: 09079 05/31/2013 ([id number]) OFFICE/OUTPATIENT VISIT EST Diagnosis: HYPERLIPIDEMIA NEC/NOS[ICD9: 272.4] Diagnosis: HYPERTENSION[ICD9: 401.9] Diagnosis: B12 DEFIC ANEMIA NEC[ICD9: 281.1] Diagnosis: HYPOGLYCEMIA[ICD9: 251.2] Vikki MARTINEZ [facility] CPT-4: 54392 03/28/2013 OFFICE/OUTPATIENT VISIT EST Diagnosis: COUGH[ICD9: 786.2] Jessenia GUAMAN [facility] CPT-4: 57086 03/26/2013 OFFICE/OUTPATIENT VISIT EST Diagnosis: COUGH[ICD9: 786.2] Diagnosis: URI, ACUTE[ICD9: 465.9] Jessenia CID [facility] CPT-4: 70291 12/19/2012 ([id number]) OFFICE/OUTPATIENT VISIT EST Diagnosis: HYPERTENSION[ICD9: 401.9] Diagnosis: CEPHALGIA[ICD9: 784.0] Diagnosis: ANXIETY STATE NOS[ICD9: 300.00] Diagnosis: FLU VACCINE[ICD9: V04.81] Vik[facility] CPT-[facility]: 70592 11/27/2012 ([id number]) OFFICE/OUTPATIENT VISIT EST Diagnosis: DIZZINESS/VERTIGO[ICD9: 780.4] Diagnosis: SINUSITIS, ACUTE[ICD9: 461.9] Diagnosis: Benign positional vertigo[ICD9: 386.11] [facility]: 62348 10/04/2012 OFFICE/OUTPATIENT VISIT EST Diagnosis: OTITIS MEDIA NOS[ICD9: 382.9] Vikki CORTEZLINE Alyssa [facility]: 61774 07/27/2012 OFFICE/OUTPATIENT VISIT EST Diagnosis: Perforation of ear drum[ICD9: 384.20] Diagnosis: SINUSITIS, ACUTE[ICD9: 461.9] [facility]: 98108 07/14/2012 ([id number]) OFFICE/OUTPATIENT VISIT EST Diagnosis: Mastalgia[ICD9: 611.71] Vikki Peckfunmilayosakshi CID [facility] CPT-4: 21780 06/08/2012 ([id number]) OFFICE/OUTPATIENT VISIT EST Diagnosis: HYPERLIPIDEMIA NEC/NOS[ICD9: 272.4] Diagnosis: HYPERTENSION[ICD9: 401.9] Diagnosis: DIZZINESS/VERTIGO[ICD9: 780.4] Diagnosis: Hyperglycemia[ICD9: 790.29] Diagnosis: MALAISE AND FATIGUE[ICD9: 780.79] Vikki Conde AlejandraSujata [facility]: 57261 02/23/2012 ([id number]) OFFICE/OUTPATIENT VISIT EST Diagnosis: EUSTACHIAN TUBE DYSFUNCTION[ICD9: 381.81] Diagnosis: DIZZINESS/VERTIGO[ICD9: 780.4] Diagnosis: ABDOMINAL PAIN[ICD9: 789.00] Diagnosis: GERD[ICD9: 530.81] Diagnosis: CERUMEN IMPACTION[ICD9: 380.4] Vikki GUAMAN [facility] CPT-4: 49353 02/22/2012 OFFICE/OUTPATIENT VISIT EST Diagnosis: ABDOMINAL PAIN[ICD9: 789.00] Diagnosis: DYSPEPSIA[ICD9: 536.8] Vikki Rees [facility] CPT-4: 83054 12/28/2011 ([id number]) OFFICE/OUTPATIENT VISIT EST Diagnosis: ABDOMINAL PAIN[ICD9: 789.00] Diagnosis: DYSPEPSIA[ICD9: 536.8] Diagnosis: IBS[ICD9: 564.1] Vikki GUAMAN [facility] CPT - 4: 76844 12/15/2011 OFFICE/OUTPATIENT VISIT EST Diagnosis: DIZZINESS/VERTIGO[ICD9: 780.4] Diagnosis: HYPOGLYCEMIA[ICD9: 251.2] Vikki MARTINEZ [facility] CPT-4: 63861 09/21/2011 ([id number]) OFFICE/OUTPATIENT VISIT EST Diagnosis: URINARY TRACT INFECTION[ICD9: 599.0] Vikki GUAMAN [facility] CPT-4: 73151 09/16/2011 ([id number]) OFFICE/OUTPATIENT VISIT EST Diagnosis: HYPERLIPIDEMIA NEC/NOS[ICD9: 272.4] Diagnosis: HYPERTENSION[ICD9: 401.9] Diagnosis: MALAISE AND FATIGUE[ICD9: 780.79] Diagnosis: DIZZINESS/VERTIGO[ICD9: 780.4] Vikki GUAMAN [facility] CPT-4: 60409 09/15/2011 ([id number]) OFFICE/OUTPATIENT VISIT EST Diagnosis: DIZZINESS/VERTIGO[ICD9: 780.4] Diagnosis: MALAISE AND FATIGUE[ICD9: 780.79] Diagnosis: HYPERTENSION[ICD9: 401.9] Vikki MARTINEZ [facility] CPT-4: 74760 09/13/2011 OFFICE/OUTPATIENT VISIT EST Diagnosis: LUMB/LUMBOSAC DISC DEGEN[ICD9: 722.52] Diagnosis: Radiculopathy of leg[ICD9: 724.4] Diagnosis: 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] Diagnosis: SPINAL ENTHESOPATHY[ICD9: 720.1] Vikki GUAMAN [facility] CPT-4: 37872 08/16/2011 ([id number]) OFFICE/OUTPATIENT VISIT EST Diagnosis: PAIN, LOWER BACK[ICD9: 724.2] Diagnosis: SPASM OF MUSCLE[ICD9: 728.85] Diagnosis: SCIATICA[ICD9: 724.3] Diagnosis: Lumbar degenerative disc disease[ICD9: 722.52] Vikki GUAMAN [facility] CPT-4: 65067 08/03/2011 ([id number]) OFFICE/OUTPATIENT VISIT EST Diagnosis: PAIN IN THORACIC SPINE[ICD9: 724.1] Diagnosis: SPASM OF MUSCLE[ICD9: 728.85] Vikki Cid VIKKI [facility] CPT-[facility]: 53499 07/26/2011 ([id number]) OFFICE/OUTPATIENT VISIT EST Diagnosis: PAIN, LOWER BACK[ICD9: 724.2] Diagnosis: SPASM OF MUSCLE[ICD9: 728.85] Diagnosis: Sacroiliac dysfunction[ICD9: 739.4] Diagnosis: Lumbar degenerative disc disease[ICD9: 722.52] Vikki RobertsSujata [facility] CPT-[facility]: 86036 06/28/2011 OFFICE/OUTPATIENT VISIT EST Diagnosis: MALAISE AND FATIGUE[ICD9: 780.79] Diagnosis: HYPOTENSION[ICD9: 458.9] Diagnosis: CAD[ICD9: 414.00] Vikki RobertsSujata [facility] CPT-[facility]: 62578 03/31/2011 OFFICE/OUTPATIENT VISIT EST Diagnosis: SINUSITIS, ACUTE[ICD9: 461.9] Diagnosis: PHARYNGITIS, ACUTE[ICD9: 462] Diagnosis: CERUMEN IMPACTION[ICD9: 380.4] Vikkigabriel CORTEZLINE S . [facility] CPT-4: 43269 02/11/2011 OFFICE/OUTPATIENT VISIT EST Diagnosis: PAIN IN THORACIC SPINE[ICD9: 724.1] Diagnosis: GERD[ICD9: 530.81] Diagnosis: DIZZINESS/VERTIGO[ICD9: 780.4] Vikki PIKE S . [facility] CPT-4: 09102 10/15/2010 OFFICE/OUTPATIENT VISIT EST Vikki PIKE [facility] CPT- 4: 15022 09/29/2010 ([id number]) OFFICE/OUTPATIENT VISIT EST Vikki PATHAK [facility] CPT-4: 94356 07/02/2010 ([id number]) OFFICE/OUTPATIENT VISIT, EST Diagnosis: PAIN, LOWER BACK[ICD9: 724.2] Vikki PIKE [facility] CPT-4: 11560 04/06/2010 ([id number]) OFFICE/OUTPATIENT VISIT, EST Vikki CRISOSTOMO [facility] CPT-4: 99308 04/01/2010 ([id number]) OFFICE/OUTPATIENT VISIT, EST Vikki KEELINE [facility] CPT-4: 25112 01/22/2010 ([id number]) OFFICE/OUTPATIENT VISIT, EST Vikki CRISOSTOMO [facility] CPT-4: 41764 12/02/2009 ([id number]) OFFICE/OUTPATIENT VISIT, EST Vikki CRISOSTOMO [facility] CPT-4: 10604 10/21/2009 ([id number]) OFFICE/OUTPATIENT VISIT, EST Vikki KEELINE [facility] CPT-4: 63324 09/10/2009 ([id number]) OFFICE/OUTPATIENT VISIT, EST Vikki Orefunmilayosakshi [facility] CPT-4: 47399 08/11/2009 ([id number]) OFFICE/OUTPATIENT VISIT, EST Vikki CRISOSTOMO [facility] CPT-4: 94771 06/09/2009 Plan of Care Planned Activity Notes Codes Status Date Visit Diagnosis Plan: Essential (primary) hypertension Discussion: Improving with higher dose of metoprolol Recheck 2weeks ICD-9 : 401.9 ICD-10 : I10 03/20/2019 Visit Diagnosis Plan: Palpitations Discussion: Continu e higher dose of metoprolol ICD-9 : 785.1 ICD-10 : R00.2 03/20/2019 Appointment: Vikki Guaman WPtel: [address] [place] [address] FOLLOW UP 03/20/2019 Appointment: Vikki Guaman WPtel: [address] [place] [address] 03/13/2019--moved up to [facility] 03/13/19 at 4pm (km) [facility] Visit Diagnosis Plan: Palpitations Discussion: Check C BC, CMP, TSH ICD-9 : 785.1 ICD-10 : R00.2 03/13/2019 Visit Diagnosis Plan: Essential hypertension Discussio n: Increase metoprolol to 25mg q AM and 50mg po q pM Recheck 1 week ICD-9 : 401.9 ICD-10 : I10 03/13/2019 Appointment: Vikki Guamantel: [address] [place] [address] BP CHECK 03/13/2019 Appointment: Vikki Guaman WPtel: [address] [place] [address] ACUTE ILLNESS 03/13/2019 Patient Education: metoprolol tartrate- OptimizeRX [facility] [id number] [email or web address] Completed 03/13/2019 Care Plan: X-RAY EXAM NECK SPINE 4/5VWS LOINC : 64104-9 Pending 03/13/2019 Care Plan: X-RAY EXAM THORAC SPINE4/>VW LOINC : 35443-0 Pending 03/13/2019 Appointment: Vikki Guaman WPtel: [address] [place], [place] [phone] 01/23/2019 Appointment: Vikki Guaman WPtel: [address] [place], [place] [phone] [place] INJECTION 12/26/2018 Patient Education: INFLUENZA VACCINE CDC Completed 12/26/2018 Appointment: Vikki Guaman WPtel: [address] [place], [place] [phone] 12/15/2018 Visit Diagnosis Plan: Acute serous [...] ICD-10 : H65.02 11/07/2018 Appointment: Jennifer Rosario [address] [place] [address] ACUTE ILLNESS 11/07/2018 Visit Diagnosis Plan: Urinary [...] : R53.83 08/14/2018 Appointment: Vikki Guaman WPtel: [address] [place] [address] FOLLOW UP 08/14/2018 Visit Diagnosis Plan: Essential [...] : K21.9 05/10/2018 Appointment: Vikki Guaman WPtel: [address] [place], [place] [phone] [place] FOLLOW UP 05/10/2018 Patient Education: metoprolol tartrate- [employer]imize[employer] [facility] [id number] [email or web address]/[email or web address] Completed 05/10/2018 Appointment: Vikki Guaman WPtel: [address] [place], [place] [phone] [place] CANCELED 04/21/2018 Visit Diagnosis Plan: Gastro-esophageal reflux disease without esophagitis Discussion: Continue protonix and carafate Proceed with updated EGD ICD-9 : 530.81 ICD-10 : K21.9 02/14/2018 Visit Diagnosis Plan: Epigastric pain Discussion: [facility] CT abdomen/pelvis due to ongoing abdominal pain ICD-9 : 789.06 ICD-10 : R10.13 02/14/2018 Appointment: Vikki Guaman WPtel: [address] [place], [place] [phone] [place] FOLLOW UP 02/14/2018 Care Plan: CT PELVIS W/O DYE LOINC : 361 08-9 Pending 02/14/2018 Care Plan: CT ABDOMEN W/O DYE LOINC : 36 103-0 Pending 02/14/2018 Care Plan: Referral Order SNOMED-CT : 30 [id number] Pending 02/14/2018 Visit Diagnosis Plan: Atherosclerotic he art disease of [place] coronary artery without angina pectoris Discussion: S/P [...] : I10 01/10/2018 Appointment: Vikki Guaman WPtel: [address] [place], [place] [phone] FOLLOW UP 01/10/2018 Visit Diagnosis Plan: Gastro-esophageal [...] : R00.2 12/06/2017 Appointment: Vikki Guaman WPtel: [address] [place], [place] [phone] FOLLOW UP 12/06/2017 Patient Education: Patient Medication Summary Completed 12/06/2017 Appointment: Vikki Guamantel: [address] [place], [place] [phone] [place] LAB 11/30/2017 Patient Education: Patient Medication [...] : F41.1 11/22/2017 Appointment: Vikki Guaman WPtel: [address] [place] [address] FOLLOW UP 11/22/2017 Patient Education: Patient Medication [...] : K21.9 10/20/2017 Appointment: Vikki Guaman WPtel: [address] [place] [address] ACUTE ILLNESS 10/20/2017 Patient Education: Patient Medication Summary Completed 10/20/2017 Visit Diagnosis Plan: Dizziness and giddiness Discussi on: blood work to be completed in office including cmp, cbc, troponin to rule out glucose intolerance, infection, dehydration. 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 brown's office. will have front office make appt. patient has carotid doppler annually. ICD-9 : 780.4 ICD-10 : R42 09/27/2017 Appointment: Jennifer Rosario [address] [place] [address] ACUTE ILLNESS 09/27/2017 Patient Education: Patient Medication Summary Completed 09/27/2017 Visit Diagnosis Plan: Cervicalgia Discussion: Complete course of PT since symptoms improved Continue stretching exercises Notify if symptoms return or worsen ICD-9 : 723.1 ICD-10 : M54.2 08/16/2017 Appointment: Vikki Guaman WPtel: [facility] FOLLOW UP 08/16/2017 Patient Education: Patient Medication [...] : H81.43 07/07/2017 Appointment: Vikki Guaman WPtel: [phone] [facility] 07/07/2017 Patient Education: Patient Medication Summary Completed 07/07/2017 Care Plan: MRI NECK SPINE W/O DYE [facility] : 44795-9 Pending 07/07/2017 Visit Diagnosis Plan: Otalgia, bilateral [...] ICD-10 : H81.13 05/30/2017 Appointment: Jennifer Rosario [address] [facility] ACUTE ILLNESS 05/30/2017 Patient Education: Patient Medication [...] : M54.17 04/18/2017 Appointment: Vikki Guaman WPtel: [address] [place], [place] [phone] ACUTE ILLNESS 04/18/2017 Patient Education: Patient Medication Summary Completed 04/18/2017 Appointment: Vikki Guaman WPtel: [address] [place], [place] [phone] [place] INJECTION 12/10/2016 Patient Education: Patient Medication Summary Completed 12/10/2016 Appointment: Vikki Guaman WPtel: [address] [place], [place] [phone] LAB 11/01/2016 Patient Education: Patient Medication Summary Completed 11/01/2016 Visit Diagnosis Plan: Pain in thoracic spine Discussio n: PT has helped Continue stretches and walking Discussed joining [facility] to continue exercise ICD-9 : 724.1 ICD-10 : M54.6 10/25/2016 Visit Diagnosis Plan: Other intervertebral disc degene ration, lumbar region Follow Up: 3 months ICD-9 : 722.52 ICD-10 : M51.36 10/25/2016 Appointment: Vikki Guaman WPtel: [address] [place], [place] [phone] FOLLOW UP 10/25/2016 Patient Education: Patient Medication [...] 789.04 ICD-10 : R10.32 09/20/2016 Appointment: Vikki Guamantel: [address] [place] [address] ACUTE ILLNESS 09/20/2016 Patient Education: Patient Medication Summary Completed 09/20/2016 Appointment: Vikki Guaman WPtel: [address] [place] [address] LAB 05/13/2016 Patient Education: Patient Medication Summary [...] 611.71 ICD-10 : N64.4 05/12/2016 Appointment: Vikki Guamantel: [address] [place] [address] 3/ confirmed `sl ACUTE ILLNESS 05/12/2016 Patient Education: Patient Medication Summary Completed 05/12/2016 Care Plan: MAMMOGRAM SCREENING [facility] : 2 6347-5 Pending 05/12/2016 Visit Diagnosis Plan: Acute upper respiratory infectio n, unspecified Discussion: Exam is reassuring Likely viral illness Supportive care reviewed and encouraged Follow up PRN ICD-9 : 465.9 ICD-10 : J06.9 03/18/2016 Appointment: Yue Moya [address] [place] [address] ACUTE ILLNESS 03/18/2016 Patient Education: Patient Medication Summary Completed 03/18/2016 Visit Plan: Supportive care. Rest, Fluid s, Tylenol/Motrin prn fever or bodyaches. Notify if worsening symptoms. 02/06/2016 Appointment: Vikki Guaman WPtel: [address] [place], [place] [phone] [place] ACUTE ILLNESS 02/06/2016 Patient Education: Patient Medication Summary Completed 02/06/2016 Appointment: Vikki Guaman WPtel: [phone] [facility] [place] INJECTION 12/12/2015 Patient Education: Patient Medication Summary Completed 12/12/2015 Appointment: Vikki Guaman WPtel: [address] [place] [address] [place] LAB 11/25/2015 Patient Education: Patient Medication Summary Completed 11/25/2015 Visit Plan: Add miralax daily Use daily probiotic and metamucil and push fluids Notify if worsens/persists 08/26/2015 Appointment: Vikki Guaman WPtel: [address] [place] [address] 08/25/15 confirmed ~sl ACUTE ILLNESS 08/26/2015 Patient Education: Patient Medication Summary Completed 08/26/2015 Visit Plan: No NSAIDs Kidney function di scussed Discussed hydration Monitor lab every 4months so will check CMP, HbA1C next month 05/21/2015 Appointment: Vikki Guaman WPtel: [address] [place] [address] 05/19 confirmed ~sl ACUTE ILLNESS 05/21/2015 Patient Education: Patient Medication Summary Completed 05/21/2015 Visit Plan: Vestibular exercises Refill flonase Strict low Na diet--discussed that needs to read labels Rx for walker with chair given due to muscle weakness/unsteadiness Has carotids and abdominal aorta and legs checked in March Check Chem 7 02/19/2015 Appointment: Vikki Guaman WPtel: [address] [place] [address] 02/18/15 appt confirmed cn FOLLOW UP 02/19 Patient Education: Patient Medication Summary Completed 02/19/2015 Patient Education: Vertigo Completed 1 04/22/2014 Appointment: Vikki Guaman WPtel: [address] [place], [place] [phone] [place] INJECTION 12/20/2014 Patient Education: Patient Medication Summary Completed 12/20/2014 Appointment: Vikki Guaman WPtel: [address] [place], [place] [phone] UA 11/19/2014 Patient Education: Patient Medication Summary Completed 11/19/2014 Referral: Edy Cheek WPtel: [facility] [address] Referral Completed 11/18/2014 Appointment: Vikki Guaman WPtel: [address] [place] [address] LAB 11/14/2014 Patient Education: Patient Medication Summary Completed 11/14/2014 Visit Plan: Check CMP, CBC, TSH, Free T4 , B12, Lipids, HbA1C Discussed 6 small meals a day each with protein Would likely benefit from antidepressant Update colonoscopy 11/13/2014 Appointment: Vikki Guaman WPtel: [address] [place], [place] [phone] 11/12/14 confirmed ACUTE ILLNESS 11/13/2014 Patient Education: Patient Medication Summary Completed 11/13/2014 Visit Plan: Cerumen flush with warm wate r and peroxide - good results Resume Nasonex nasal spray daily Recommended Debrox earwax removal drops 09/27/2014 Appointment: Jessenia Francis WPtel: [address] [place] [address] ACUTE ILLNESS 09/27/2014 Patient Education: Patient Medication Summary Completed 09/27/2014 Visit Plan: Continue aspirin daily Add m eloxicam for 1week Elevate and Ice Call on Tuesday07/11/2014 Appointment: Vikki Guaman WPtel: [address] [place] [address] ACUTE ILLNESS 07/11/2014 Patient Education: Patient Medication Summary Completed 07/11/2014 Visit Plan: Been using baclofen at [facility] and has helped some PT for next 2-4weeks 05/23/2014 Appointment: Vikki Guaman WPtel: [address] [place], [place] [phone] Follow Up 05/23/2014 Patient Education: Patient Medication Summary Completed 05/23/2014 Appointment: Vikki Guaman WPtel: [address] [place], [place] [phone] 05/10/2014 Appointment: Vikki Guaman WPtel: [address] [place], [place] [phone] feeling better, weather - FOLLOW UP 04/07 Referral: Edy Cheek WPtel: [facility] [place] Antwan Borges [id number] [place] Referral Appointment Requested 04/03/2014 Visit Plan: Continue exercise and curren t meds See surgery for removal of right arm lesion 03/20/2014 Appointment: Vikki Guaman WPtel: [address] [place] [address] FOLLOW UP 03/20/2014 Patient Education: Patient Medication Summary Completed 03/20/2014 Appointment: Vikki Guaman WPtel: [address] [place], [place] [phone] INJECTION 12/21/2013 Patient Education: Patient Medication Summary Completed 12/21/2013 Appointment: Jessenia Francis WPtel: [address] [place] [address] ACUTE ILLNESS 10/17/2013 Patient Education: Patient Medication Summary Completed 10/17/2013 Visit Plan: Discussed that likely lumbar etiology for leg weakness Will change amlodopine to low dose dyazide and see if helps legs and inner ear 09/24/2013 Appointment: Vikki Guaman WPtel: [address] [place], [place] [phone] FOLLOW UP 09/24/2013 Patient Education: Patient Medication Summary Completed 09/24/2013 Visit Plan: Ceftin and continue claritin /flonase Decrease amlodopine to 2.5mg q HS until fwup with Card due to weakness 05/31/2013 Appointment: Vikki Guaman WPtel: [address] [place] [address] ACUTE ILLNESS 05/31/2013 Patient Education: Patient Medication Summary Completed 05/31/2013 Appointment: Vikki Guaman WPtel: [address] [place] [address] LAB 03/28/2013 Patient Education: Patient Medication Summary Completed 03/28/2013 Appointment: Jessenia Francis WPtel: [address] [place] [address] ACUTE ILLNESS 03/26/2013 Patient Education: Patient Medication Summary Completed 03/26/2013 Visit Plan: Supportive care. Rest, Fluid s, Tylenol prn fever or bodyaches. Notify if worsening symptoms. Ceftin 12/19/2012 Appointment: Jessenia Francis WPtel: [address] [place] [address] ACUTE ILLNESS 12/19/2012 Patient Education: Patient Medication Summary Completed 12/19/2012 Appointment: Vikki Guaman WPtel: [address] [place] [address] BP CHECK 12/04/2012 Patient Education: Patient Medication Summary Completed 12/04/2012 Appointment: Vikki Guaman WPtel: [address] [place] [address] ER Follow UP 11/27/2012 Patient Education: Patient Medication Summary Completed 11/27/2012 Visit Plan: Restart flonase BID Use mecl izine 25mg q HS Vestibular exercises Claritin 10mg q AM See ENT if doesn't resolve 10/04/2012 Appointment: Vikki Guaman WPtel: [address] [place] [address] ACUTE ILLNESS 10/04/2012 Patient Education: Patient Medication Summary Completed 10/04/2012 Visit Plan: Will continue to observe 07/27/2012 Appointment: Vikki Guaman WPtel: [address] [place] [address] FOLLOW UP 07/27/2012 Patient Education: Patient Medication [...] ear recheck. 07/14/2012 Appointment: Evelyn Santos WPtel: [address] [place] [address] ACUTE ILLNESS 07/14/2012 Patient Education: Patient Medication Summary Completed 07/14/2012 Visit Plan: Decrease caffeine intake Kristin ck Bilateral Mammogram with US of left breast 06/08/2012 Appointment: Vikki Guaman WPtel: [address] [place] [address] ACUTE ILLNESS 06/08/2012 Patient Education: Patient Medication Summary Completed 06/08/2012 Appointment: Alisia Campbell WPtel: [address] [place] [address] appt scheduled 04/06 ACUTE ILLNESS 04/10/2012 Appointment: Vikki Guaman WPtel: [address] [place] [address] US LAB 02/23/2012 Patient Education: Patient Medication Summary Completed 02/23/2012 Visit Plan: Continue off carafate and se e how does Continue probiotic Add Vestibular exercises and use meclizine prn Continue Nasonex Check fasting lab including CMP, Lipids, CBC, TSH, Free T4, HbA1C 02/22/2012 Appointment: Vikki Guaman WPtel: [address] [place] [address] FOLLOW UP 02/22/2012 Patient Education: Patient Medication Summary Completed 02/22/2012 Visit Plan: Continue carafate for 4more weeks at current dose then decrease to BID for 2wks then q HS 12/28/2011 Appointment: Vikki Guamantel: [address] [place] [address] FOLLOW UP 12/28/2011 Patient Education: Patient Medication Summary Completed 12/28/2011 Visit Plan: Continue omeprazole Add Judi fate 1gm po q AC Add daily probiotic 12/15/2011 Appointment: Vikki Guaman WPtel: [address] [place] [address] ACUTE ILLNESS 12/15/2011 Patient Education: Patient Medication Summary Completed 12/15/2011 Appointment: Vikki Guaman WPtel: [address] [place] [address] INJECTION 12/02/2011 Patient Education: Patient Medication Summary Completed 12/02/2011 Visit Plan: Diabetic Diet Accuchecks BID alternating times Hold onglyza and Januvia for now and continue diet and exercise and weight loss and moniter BS Discussed hypoglycemia and snack of peanut butter and crackers with juice or milk 09/21/2011 Appointment: Vikki Guaman WPtel: [address] [place] [address] WORK IN 09/21/2011 Patient Education: Patient Medication Summary Completed 09/21/2011 Appointment: Vikki Guaman WPtel: [address] [place], [place] [id number] [facility] 09/16/2011 Patient Education: Patient Medication Summary Completed 09/16/2011 Appointment: Vikki Guaman WPtel: [address] [place], [place] [id number] LAB 09/15/2011 Patient Education: Patient Medication Summary Completed 09/15/2011 Appointment: Vikki Guaman WPtel: [address] [place], [place] [id number] ACUTE ILLNESS 09/13/2011 Patient Education: Patient Medication Summary Completed 09/13/2011 Visit Plan: Injection to Right SI joint as above Pt will call in 3 days on pain Has PT starting in 2wks. 08/16/2011 Appointment: Vikki Guamantel: [address] [place] [address] ACUTE ILLNESS 08/16/2011 Patient Education: Patient Medication Summary Completed 08/16/2011 Visit Plan: OMT done Start PT May need u pdated MRI if need to consider epidural Prednisone 08/03/2011 Appointment: Vikki Guaman WPtel: [address] [place] [address] OMT 08/03/2011 Patient Education: Patient Medication Summary Completed 08/03/2011 Visit Plan: Flexeril and Vimovo OMT done Daily stretches 07/26/2011 Appointment: Vikki Guaman WPtel: [address] [place] [address] ACUTE ILLNESS 07/26/2011 Patient Education: Patient Medication Summary Completed 07/26/2011 Visit Plan: OMT done Daily stretches Roque st heat or biofreeze Right SI joint injection Call in 1week Vimovo BID 06/28/2011 Appointment: Vikki Guamantel: [address] [place] [address] ACUTE ILLNESS 06/28/2011 Patient Education: Patient Medication Summary Completed 06/28/2011 Appointment: Vikki Guamantel: [address] [place] [address] LAB 04/01/2011 Patient Education: Patient Medication Summary Completed 04/01/2011 Visit Plan: Decrease amlodopine to 1.25m g daily Schedule with Cardiology Fasting lab in AM 03/31/2011 Appointment: Vikki Guamantel: [address] [place] [address] ACUTE ILLNESS 03/31/2011 Patient Education: Patient Medication Summary Completed 03/31/2011 Visit Plan: Saline nasal flushes prn. Ty lenol/Motrin prn headache. Notify if persists/symptoms worsening. Cerumen removal from ears as above 02/11/2011 Appointment: Vikki Guaman WPtel: [address] [place] [address] ACUTE ILLNESS 02/11/2011 Patient Education: Patient Medication Summary Completed 02/11/2011 Appointment: Vikki Guaman WPtel: [address] [place] [address] US INJECTION 12/09/2010 Patient Education: Patient Medication Summary Completed 12/09/2010 Visit Plan: Continue vimovo for 1more we ek Increase Omeprazole to BID for 1mo then resume QD if stomach improved Vestibular exercises with meclizine q HS for next week 10/15/2010 Appointment: Vikki Guaman WPtel: [address] [place] [address] FOLLOW UP 10/15/2010 Patient Education: Patient Medication Summary Completed 10/15/2010 Appointment: Vikki Guaman WPtel: [address] [place] [address] ACUTE ILLNESS 09/29/2010 Patient Education: Patient Medication Summary Completed 09/29/2010 Appointment: Vikki Guamantel: [address] [place] [address] LAB 07/06/2010 Patient Education: Patient Medication Summary Completed 07/06/2010 Visit Plan: Saline nasal flushes prn. Ty lenol/Motrin prn headache. Notify if persists/symptoms worsening. Add Veramyst Increase Omeprazole to 20mg po BID 07/02/2010 Appointment: Vikki Guaman WPtel: [address] [place] [address] ACUTE ILLNESS 07/02/2010 Patient Education: Patient Medication Summary Completed 07/02/2010 Appointment: Vikki Guaman WPtel: [address] [place] [address] FOLLOW UP 04/06/2010 Patient Education: Patient Medication Summary Completed 04/06/2010 Appointment: Vikki Guaman WPtel: [address] [place], [place] [id number] ACUTE ILLNESS 04/01/2010 Patient Education: Patient Medication Summary Completed 04/01/2010 Visit Plan: Nasocourt sample given. Pt. will notify if symptoms are worse on Tuesday. 01/22/2010 Appointment: Alisia Campbell WPtel: [address] [place] [address] ACUTE ILLNESS 01/22/2010 Patient Education: Patient Medication Summary Completed 01/22/2010 Appointment: Vikki Guaman WPtel: [address] [place] [address] US INJECTION 12/10/2009 Patient Education: Patient Medication Summary Completed 12/10/2009 Appointment: Vikki Guaman WPtel: [address] [place] [address] FOLLOW UP 12/02/2009 Patient Education: Patient Medication Summary Completed 12/02/2009 Patient Education: Lexapro Completed 0 12/02/2009 Visit Plan: May proceed with hiatal ryan ia repair per Card. so will contact Dr. Mariscal's office to proceed with surgery Trial of Lexapro 5mg QD plus use xanax prn 10/21/2009 Appointment: Vikki Guaman WPtel: [address] [place], [place] [id number] FOLLOW UP 10/21/2009 Patient Education: Patient Medication Summary Completed 10/21/2009 Visit Plan: B12 given Cont oral B12 and iron Fwup 1mo for B12 Proceed with hiatal hernia repair once card clearance 09/10/2009 Appointment: Vikki Guaman WPtel: [address] [place] [address] US FOLLOW UP 09/10/2009 Patient Education: Patient Medication Summary Completed 09/10/2009 Appointment: Vikki Guaman WPtel: [address] [place], [place] [id number] FOLLOW UP 08/11/2009 Patient Education: Patient Medication Summary Completed 08/11/2009 Appointment: Vikki Guaman WPtel: [phone] [facility] US LAB 06/10/2009 Patient Education: Patient Medication Summary Completed 06/10/2009 Visit Plan: Check fasting lab in AM--CMP ,Lipids, CBC, Vit D, TSH,FreeT4, B12 06/09/2009 Appointment: Vikki Guaman WPtel: [phone] [facility] FOLLOW UP 06/09/2009 Patient Education: Patient Medication Summary Completed 06/09/2009 Referral: Edy Cheek WPtel: #[address] [facility] Referral Appointment Requested Referral: Edy Cheek WPtel: [address] Referral Initiated Instructions Comment . Supportive [...]
--- OUTSIDE RECORDS SUMMARY | 2019-04-25 20:24 | XMS REPORT | CCD ---
Author Author Evelyne Guaman D.O. 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 PP Unavailable CCM Unavailable Summary Purpose Interface Exchange Insurance Providers Payer name Policy type / Coverage type Covered libertarian ID Effective Begin Date Effective End Date WPS MEDICARE PART B [place] Medicare Part B [id number] 2017 Unknown Aetna [facility] Medicare Part B [id number] Unknown Family history Father Diagnosis Age At Onset Heart disease Unknown Mother Diagnosis Age At Onset Heart disease Unknown Cancer Unknown Social History Social History Element Codes Description Effective Dates Tobacco history SNOMED CT: 874796077 Never smoker 09/29/2010 Marital status Unknown Single [...] R10.13 11/22/2017 Active 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: [...] Instructions omeprazole 40 mg capsule,delayed release RxNorm: 362865 1 Capsu le(s) Oral QD 03/27/2019 12/22/2019 Active simvastatin 40 mg tablet RxNorm: 313701 1 Tablet(s) Oral QD 020 12/22/2019 Active metoprolol tartrate 25 mg tablet RxNorm: 465550 1 Table t(s) Oral QAM and two tablets (50mg) in the evening 03/27/2019 06/25/2019 Active metoprolol tartrate 25 mg tablet RxNorm: 787446 1 Table t(s) Oral QAM and two tablets (50mg) in the evening 03/20/2019 03/26/2019 Inactive Flonase Allergy Relief 50 mcg/actuation nasal spray,suspensi on RxNorm: 8212217 2 [place] Nasal every night at bedtime 03/13/2019 03/13/2019 Inactive simvastatin 40 mg tablet RxNorm: 977392 1 Tablet(s) PO QD 01/22/2019 03/26/2019 Inactive omeprazole 40 mg capsule,delayed release RxNorm: 229648 1 Capsu le(s) Oral QD 01/10/2019 03/26/2019 Inactive Xanax 0.25 mg tablet RxNorm: 448374 TAKE 1 TABLET BY MOUTH TWIC E DAILY 01/02/2019 No Stop Date Active omeprazole 40 mg capsule,delayed release RxNorm: 096963 1 Capsu le(s) PO QD 12/11/2018 01/09/2019 Inactive metoprolol tartrate 25 mg tablet RxNorm: 036751 1 Tablet(s) PO BID 11/20/2018 03/19/2019 Inactive omeprazole 40 mg capsule,delayed release RxNorm: 441345 1 Capsu le(s) PO QD 11/13/2018 12/10/2018 Inactive Flonase Allergy Relief 50 mcg/actuation nasal spray,suspensi on RxNorm: 9540044 2 [place] NASAL QHS 11/07/2018 03/12/2019 Inactive simvastatin 40 mg tablet RxNorm: 144840 1 Tablet(s) PO QD 10/23/2018 01/20/2019 Inactive simvastatin 40 mg tablet RxNorm: 070064 1 Tablet(s) PO QD 07/24/2018 10/21/2018 Inactive omeprazole 40 mg capsule,delayed release RxNorm: 811149 1 Capsu le(s) PO QD 07/13/2018 11/09/2018 Inactive simvastatin 40 mg tablet RxNorm: 266883 1 Tablet(s) PO QD 06/13/2018 07/12/2018 Inactive omeprazole 40 mg capsule,delayed release RxNorm: 406153 1 Capsu le(s) PO QD 06/13/2018 07/12/2018 Inactive Bactrim DS 800 mg-160 mg tablet RxNorm: 425149 1 Tablet(s) PO BID 0 05/12/2018 05/18/2018 Inactive Bactrim DS 800 mg-160 mg tablet RxNorm: 544816 1 Tablet(s) PO BID 0 05/12/2018 05/11/2018 Inactive Macrobid 100 mg capsule RxNorm: 477629 1 Capsule(s) PO BID 05/11/1905/16/2018 Inactive metoprolol tartrate 25 mg tablet RxNorm: 129805 1 Tablet(s) PO BID 05/10/2018 11/05/2018 Inactive Xanax 0.25 mg tablet RxNorm: 070313 TAKE 1 TABLET BY MOUTH TWIC E DAILY 02/16/2018 01/01/2019 Inactive Xanax 0.25 mg tablet RxNorm: 051907 1 Tablet(s) PO BID 02/14/2018 Inactive Protonix 40 mg tablet,delayed release RxNorm: 797643 1 Tablet(s) PO BID for stomach--replaces omeprazole 01/10/2018 05/09/2018 Inactive Carafate 1 gram tablet RxNorm: 385776 1 Tablet(s) PO AC & HS 201705/09/2018 Inactive Xanax 0.25 mg tablet RxNorm: 526473 1 Tablet(s) PO BID 01/03/201812/2017 Inactive Bactrim DS 800 mg-160 mg tablet RxNorm: 425981 1 Tablet(s) PO BID 1 12/12/2017 Inactive Bactrim DS 800 mg-160 mg tablet RxNorm: 966587 1 Tablet(s) PO BID 1 12/07/2017 Inactive Carafate 1 gram tablet RxNorm: 947129 1 Tablet(s) PO AC & HS 201712/21/2017 Inactive Protonix 40 mg tablet,delayed release RxNorm: 285761 1 Tablet(s) PO BID for stomach--replaces omeprazole 11/22/2017 01/09/2018 Inactive Protonix 40 mg tablet,delayed release RxNorm: 596433 1 Tablet(s) PO BID for stomach--replaces omeprazole 10/20/2017 11/21/2017 Inactive fluticasone 50 mcg/actuation nasal spray,suspension RxNorm: 4540995 2 [place] NASAL QD to each nostril 07/07/2017 08/13/2018 Inactive Nasonex 50 mcg/actuation [place] RxNorm: 2812866 2 [place] NASAL 201707/07/2017 Inactive omeprazole 40 mg capsule,delayed release RxNorm: 019750 1 Capsu le(s) PO QD 04/18/2017 10/19/2017 Inactive simvastatin 40 mg tablet RxNorm: 775153 1 Tablet(s) PO QD TAKE 1 TABLET EVERY DAY 04/18/2017 04/12/2018 Inactive metoprolol tartrate 25 mg tablet RxNorm: 738528 1/2 Tablet(s) PO QD 04/18/2017 01/09/2018 Inactive simvastatin 40 mg tablet RxNorm: 064844 Tablet(s) TAKE 1 TABLET EVERY DAY 10/27/2016 04/17/2017 Inactive metoprolol tartrate 25 mg tablet RxNorm: 555869 1/2 Tablet(s) PO QD 09/20/2016 03/18/2017 Inactive Flonase 50 mcg/actuation nasal spray,suspension RxNorm: 1797 933 2 [place] NASAL BID 09/20/2016 04/17/2017 Inactive omeprazole 40 mg capsule,delayed release RxNorm: 053308 1 Capsu le(s) PO QD 09/08/2016 04/17/2017 Inactive metoprolol tartrate 25 mg tablet RxNorm: 676338 1/2 Tablet(s) PO QD 06/14/2016 09/19/2016 Inactive ciprofloxacin 0.2 % ear drops in a dropperette RxNorm: 60600 6 4 Drop(s) OTIC TID for 1 week 02/06/2016 05/11/2016 Inactive cefdinir 300 mg capsule RxNorm: 439704 2 Capsule(s) PO QD 02/06/2016 02/15/2016 Inactive omeprazole 40 mg capsule,delayed release RxNorm: 999859 TAKE 1 CAPSULE EVERY DAY 11/06/2015 09/08/2016 Inactive simvastatin 40 mg tablet RxNorm: 548494 TAKE 1 TABLET EVERY DAY 05/201510/27/2016 Inactive Flonase 50 mcg/actuation nasal spray,suspension RxNorm: 1797 933 2 [place] NASAL BID 02/19/2015 09/19/2016 Inactive cefuroxime axetil 250 mg tablet RxNorm: 650339 1 Tablet(s) PO BID 0 11/21/2014 11/20/2014 Inactive cefuroxime axetil 250 mg tablet RxNorm: 412888 1 Tablet(s) PO BID 0 11/21/2014 11/27/2014 Inactive omeprazole 40 mg capsule,delayed release RxNorm: 860349 1 Capsu le(s) PO QD 10/09/2014 01/05/2015 Inactive meloxicam 7.5 mg tablet RxNorm: 143230 1 Tablet(s) PO QD 07/11/2014 0 08/09/2014 Inactive loratadine 10 mg tablet RxNorm: 775501 1 Tablet(s) PO QAM for a llergies 10/17/2013 08/13/2018 Inactive Flonase 50 mcg/actuation nasal spray,suspension RxNorm: 8963 23 2 [place] NASAL BID 10/17/2013 02/18/2015 Inactive prednisone 20 mg tablet RxNorm: 122337 2 Tablet(s) PO BID 10/17/2013 10/21/2013 Inactive Dyazide 37.5 mg-25 mg capsule RxNorm: 523378 1 Capsule(s) PO QAM 10/16/2013 Inactive Ceftin 500 mg tablet RxNorm: 330662 1 Tablet(s) PO BID 05/31/201307/2013 Inactive Ceftin 500 mg tablet RxNorm: 760186 1 Tablet(s) PO BID 03/26/2013 Inactive simvastatin 40 mg tablet RxNorm: 538027 Tablet(s) PO TA KE ONE TABLET BY MOUTH EVERY DAY 03/26/2013 10/07/2015 Inactive metoprolol tartrate 25 mg tablet RxNorm: 561733 Tablet( s) PO TAKE ONE-HALF TABLET BY MOUTH EVERY DAY 03/26/2013 11/12/2014 Inactive Ceftin 500 mg tablet RxNorm: 518571 1 Tablet(s) PO BID 12/19/2012 Inactive loratadine 10 mg tablet RxNorm: 658677 1 Tablet(s) PO QAM for a llergies 10/04/2012 12/02/2012 Inactive omeprazole 20 mg capsule,delayed release RxNorm: 138713 Capsule(s) PO TAKE ONE CAPSULE BY MOUTH TWICE DAILY 08/09/2012 10/08/2014 Inactive omeprazole 20 mg capsule,delayed release RxNorm: 616710 1 Capsu le(s) PO BID 08/09/2012 05/09/2018 Inactive Augmentin 875 mg-125 mg tablet RxNorm: 869150 1 Tablet(s) PO Q12H 0 07/14/2012 07/23/2012 Inactive Floxin Otic Drops 1 bottle Drops RxNorm: 5 Drop(s) OTIC BID 07/20/2012 Inactive metoprolol tartrate 25 mg tablet RxNorm: 749792 Tablet( s) PO TAKE ONE-HALF TABLET BY MOUTH EVERY DAY 04/11/2012 03/25/2013 Inactive simvastatin 40 mg tablet RxNorm: 830553 Tablet(s) PO TA KE ONE TABLET BY MOUTH EVERY DAY 04/11/2012 03/25/2013 Inactive lancets RxNorm: Misc Miscellaneous USE ONE TO CH JEFFERY GLUCOSE EVERY DAY 04/04/2012 05/09/2018 Inactive Carafate 1 gram tablet RxNorm: 334842 1 Tablet(s) PO AC & HS 201111/12/2014 Inactive Flagyl 500 mg tablet RxNorm: 126490 1 Tablet(s) PO TID 12/15/2011 Inactive Carafate 1 gram tablet RxNorm: 072041 1 Tablet(s) PO AC & HS 201102/12/2012 Inactive One Touch Test strips RxNorm: Miscellaneous QD 09/21/2011 05/09/2018 Inactive one touch ultra mini test strips Protonix 40 mg Tab RxNorm: 188908 1 Tablet(s) PO QD 09/13/20112011 Inactive Protonix 40 mg Tab RxNorm: 585857 1 Tablet(s) PO QD 09/13/20112011 Inactive prednisone 20 mg Tab RxNorm: 482194 1 Tablet(s) PO BID 08/03/201106/2011 Inactive Flexeril 5 mg Tab RxNorm: 932264 1 Tablet(s) PO QHS for spasm 07/2508/24/2011 Inactive Flexeril 5 mg Tab RxNorm: 214338 1 Tablet(s) PO QHS for spasm 06/2707/25/2011 Inactive amlodipine 2.5 mg Tab RxNorm: 585908 1/2 Tablet(s) PO QD replac es 5mg dose 03/31/2011 06/27/2011 Inactive simvastatin 40 mg tablet RxNorm: 036862 1 Tablet(s) PO QD 03/31/2011 03/24/2012 Inactive metoprolol tartrate 25 mg tablet RxNorm: 828666 1/2 Tablet(s) PO QD 03/31/2011 03/24/2012 Inactive omeprazole 20 mg capsule,delayed release RxNorm: 128468 1 Capsu le(s) PO BID 03/31/2011 09/12/2011 Inactive cefdinir 300 mg Cap RxNorm: 748909 2 Capsule(s) PO QD 02/11/201102/04 Inactive simvastatin 40 mg Tab RxNorm: 267604 1 Tablet(s) PO QD 02/01/2011 Inactive metoprolol tartrate 25 mg Tab RxNorm: 210098 1/2 Tablet(s) PO QD 03/30/2011 Inactive metoprolol tartrate 25 mg Tab RxNorm: 616283 1/2 Tablet(s) PO QD 12/28/2010 Inactive meclizine 25 mg Tab RxNorm: 9038829 1 Tablet(s) PO QHS 10/15/201011/2010 Inactive for dizziness Ceftin 500 mg Tab RxNorm: 491231 1 Tablet(s) PO BID 07/02/20102010 Inactive omeprazole 20 mg Cap, Delayed Release RxNorm: 127351 1 Capsule( s) PO BID 07/02/2010 12/28/2010 Inactive simvastatin 40 mg Tab RxNorm: 360091 1 Tablet(s) PO QD 06/30/201007/2018 Inactive simvastatin 40 mg Tab RxNorm: 045856 1 Tablet(s) PO QD 06/30/2010 Inactive simvastatin 40 mg Tab RxNorm: 975640 1 Tablet(s) PO QD 02/25/2010 Inactive Tessalon Perles 100 mg Cap RxNorm: 932574 1 Capsule(s) PO Q6-8H 01/28/2010 Inactive cefdinir 300 mg Cap RxNorm: 412433 1 Capsule(s) PO BID 01/22/2010 Inactive Lexapro 10 mg Tab RxNorm: 292170 1 Tablet(s) PO QD 12/02/2009 010 Inactive Cipro 250 mg Tab RxNorm: 878990 1 Tablet(s) PO BID 12/02/2009 010 Inactive Wellbutrin XL 150 mg 24 hr Tab RxNorm: 931452 1 Tablet(s) PO QAM 08/07/2009 Inactive Fish Oil 1,000 mg Cap RxNorm: 1 Capsule(s) PO QD No Start Date Active Tylenol Extra Strength 500 mg tablet RxNorm: 885887 1/2 Tablet( s) PO as needed No Start Date Active nitroglycerin 0.4 mg sublingual tablet RxNorm: 268329 Tablet(s) SL as needed No Start Date Active Calcium with Vitamin D 600 mg (1,500 mg)-400 unit tablet RxN orm: 628779 1 Tablet(s) PO QD No Start Date Active Multivitamin & Mineral Formula Tab RxNorm: 1 Tablet(s) PO QD No St art Date Active vitamin B complex capsule RxNorm: 1 Capsule(s) PO QD No Start Date Active Aspirin 81 mg Tab RxNorm: 629670 1 Tablet(s) PO QD No Start Date Active isosorbide mononitrate ER 30 mg tablet,extended release 24 h r RxNorm: 824621 1 Tablet(s) PO QHS No Start Date Active Vitamin D 1,000 unit Cap RxNorm: 089269 1 Capsule(s) PO QD No Start D ate Active Co Q-10 oral RxNorm: 99880 oral No Start Date Active metoprolol tartrate 25 mg Tab RxNorm: 806624 1/2 Tablet(s) PO QD No Start Date 12/27/2010 Inactive Nasonex 50 mcg/actuation [place] RxNorm: 3794538 2 [place] NASAL No Sta rt Date 07/06/2017 Inactive Vitamin B12 1000mcg Tablet RxNorm: 1 Tablet(s) PO QD No Start Date 11/12/2014 Inactive amlodipine 5 mg Tab RxNorm: 996039 1 Tablet(s) PO QD No Start Date Inactive simvastatin 40 mg tablet RxNorm: 410630 1 Tablet(s) PO QD No Start Date 06/12/2018 Inactive omeprazole 20 mg capsule,delayed release RxNorm: 374409 1 Capsu le(s) PO BID No Start Date 08/08/2012 Inactive omeprazole 40 mg capsule,delayed release RxNorm: 720133 1 Capsu le(s) PO QD No Start Date 06/12/2018 Inactive Nexium 40 mg Cap RxNorm: 392907 1 Capsule(s) PO QD No Start Date 01/05 Inactive Stool Softener 100 mg Tab RxNorm: 9177385 2 Tablet(s) PO BID No Sta rt Date 03/30/2011 Inactive Calcium with Vitamin D 600 mg (1,500 mg)-400 unit Tab RxNorm : 358442 1 Tablet(s) PO QD No Start Date 11/12/2014 Inactive iron 325 mg (65 mg iron) Tab RxNorm: 496088 1 Tablet(s) PO QD No St art Date 11/12/2014 Inactive Flonase 50 mcg/actuation Nasal [place] RxNorm: 439988 2 [place] DEMOND AL BID No Start Date 10/16/2013 Inactive fluticasone 50 mcg/actuation nasal spray,suspension RxNorm: 3462931 2 [place] NASAL QD to each nostril No Start Date 07/06/2017 Inactive Nasonex 50 mcg/actuation [place] RxNorm: 0693577 2 [place] NASAL QD No Start Date 07/06/2017 Inactive hydralazine 50 mg tablet RxNorm: 203198 1 Tablet(s) PO as needed for BP over 160/90 No Start Date 11/21/2017 Inactive Vimovo 500 mg-20 mg 12 hr Tab RxNorm: 754332 1 Tablet(s) PO BID No Start Date 02/10/2011 Inactive Tylenol PM 25 mg-500 mg/15 mL Oral Soln RxNorm: 5047102 1 PO QPM No Start Date 11/12/2014 Inactive Iron (Ferrous Sulfate) Oral RxNorm: Oral No Start Date 03/30/19 Inactive Reglan 10 mg Tab RxNorm: 545723 1 Tablet(s) PO TID before meals No Start Date 02/10/2011 Inactive Xanax 1 mg Tab RxNorm: 121253 1/2 Tablet(s) PO QD No Start Date 11/21 Inactive amlodipine 10 mg tablet RxNorm: 928016 1 Tablet(s) PO QD No Start D ate 09/23/2013 Inactive Iron (dried) Oral RxNorm: Oral No Start Date 03/30/2011 Inactiv e metoprolol tartrate 50 mg tablet RxNorm: 416344 1 Tablet(s) PO BID No Start Date 02/13/2018 Inactive Xanax 0.25 mg tablet RxNorm: 868460 1 Tablet(s) PO BID No Start Date 01/02/2018 Inactive lancets RxNorm: Miscellaneous check blood sugar at least once daily No Start Date 04/03/2012 Inactive simvastatin 40 mg Tab RxNorm: 163942 1 Tablet(s) PO QD No Start Date 02/24/2010 Inactive isosorbide mononitrate ER 30 mg tablet,extended release 24 h r RxNorm: 354553 1 Tablet(s) PO QHS No Start Date 08/13/2018 Inactive amlodipine 2.5 mg tablet RxNorm: 603063 1 Tablet(s) PO QD No Start Date 09/23/2013 Inactive sucralfate 1 gram tablet RxNorm: 255144 1 Tablet(s) PO QID No Start Date 05/09/2018 Inactive Fish Oil Oral RxNorm: Oral No Start Date 03/31/2011 Inactive Multiple Vitamin Oral RxNorm: Oral No Start Date 03/31/2011 [place] [facility] metoprolol tartrate 25 mg tablet RxNorm: 628007 1/2 Tablet(s) P O QD No Start Date 06/13/2016 Inactive metoprolol tartrate 50 mg tablet RxNorm: 962165 1/2 Tablet(s) P O BID No Start Date 05/09/2018 Inactive Flonase Allergy Relief 50 mcg/actuation nasal spray,suspensi on RxNorm: 0739000 2 [place] NASAL QHS No Start Date 11/06/2018 Inactive [...] Code Item Item Code Result Date S [facility] Location COMPLETE BLOOD COUNT [id number] WBC 7.1 10e9/L 03/13/19 20 Unknown COMPLETE BLOOD COUNT [id number] RBC 4.16 10e12/L 2019 Unknown COMPLETE BLOOD COUNT [id number] HEMOGLOBIN 12.4 g/dL 03/13/19 20 Unknown COMPLETE BLOOD COUNT [id number] HEMATOCRIT 39.3 % 03/13/19 20 Unknown COMPLETE BLOOD COUNT [id number] MCV 94.5 fL 0 Unknown COMPLETE BLOOD COUNT [id number] MCH 29.8 pg 0 Unknown COMPLETE BLOOD COUNT [id number] MCHC 31.6 g/dL 0 Unknown COMPLETE BLOOD COUNT [id number] PLATELET COUNT 161 10e9/L 09/2019 Unknown COMPLETE BLOOD COUNT [id number] Mean Plt Volume 10.8 fL 09/2019 Unknown COMPLETE BLOOD COUNT [id number] Neut Auto 38.7 % 0 Unknown COMPLETE BLOOD COUNT [id number] Lymph Auto 48.0 % 03/13/19 20 Unknown COMPLETE BLOOD COUNT [id number] [place] Auto 9.5 % 0 Unknown COMPLETE BLOOD COUNT [id number] RDW 13.5 % 0 Unknown COMPLETE BLOOD COUNT [id number] Eos Auto 3.2 % 0 Unknown COMPLETE BLOOD COUNT [id number] Baso Auto 0.6 % 0 Unknown COMPLETE BLOOD COUNT [id number] Neutrophil Abs 2.75 10e9/L Unknown COMPLETE BLOOD COUNT [id number] Lymphocyte Abs 3.41 10e9/L Unknown COMPLETE BLOOD COUNT [id number] Monocyte Abs 0.67 10e9/L 09/2019 Unknown COMPLETE BLOOD COUNT [id number] Eosinophil Abs 0.23 10e9/L Unknown COMPLETE BLOOD COUNT [id number] RDW-SD 44.7 fL 0 Unknown COMPLETE BLOOD COUNT [id number] Basophil Abs 0.04 10e9/L 09/2019 Unknown THYROID STIMULATING HORMONE 78553 TSH 1.677 uIU/mL 03/13/2019 Unknown COMPREHENSIVE METABOLIC 23262 AST 19 U/L 2019 Unknown COMPREHENSIVE METABOLIC 94489 ALT 12 U/L 2019 Unknown COMPREHENSIVE METABOLIC 86661 BUN 17 mg/dL 2019 Unknown COMPREHENSIVE METABOLIC 20090 ALBUMIN 4.2 g/dL 2019 Unknown COMPREHENSIVE METABOLIC 42451 CHLORIDE 103 mmol/L 03/13 Unknown COMPREHENSIVE METABOLIC 90170 Bili Total 0.2 mg/dL 03/13 Unknown COMPREHENSIVE METABOLIC 95362 ALK PHOS 61 U/L 2019 Unknown COMPREHENSIVE METABOLIC 99202 SODIUM 140 mmol/L 03/13 Unknown COMPREHENSIVE METABOLIC 98330 CREATININE 0.95 mg/dL 09/2019 Unknown COMPREHENSIVE METABOLIC 36387 CALCIUM 9.4 mg/dL 2019 Unknown COMPREHENSIVE METABOLIC 88707 POTASSIUM 4.2 mmol/L 03/13 Unknown COMPREHENSIVE METABOLIC 32501 Total Protein 6.5 g/dL Unknown COMPREHENSIVE METABOLIC 44818 Glucose 103 mg/dL 2019 Unknown COMPREHENSIVE METABOLIC 37988 Bicarbonate 26 mmol/L 09/2019 Unknown COMPREHENSIVE METABOLIC 85778 AGAP 11 mmol/L 2019 Unknown GFR CALC [id number] GFR Non Afr Amr 57 mL/min 03/13/2019 Unk nown GFR CALC [id number] GFR Afr Amr >60 mL/min 03/13/2019 Unknow n GFR CALC [id number] GFR Non Afr Amr 52 mL/min 12/15/2018 Unk nown GFR CALC [id number] GFR Afr Amr >60 mL/min 12/15/2018 Unknow n COMPREHENSIVE METABOLIC 71715 AST 17 U/L 2018 Unknown COMPREHENSIVE METABOLIC 74627 ALT 11 U/L 2018 Unknown COMPREHENSIVE METABOLIC 24287 BUN 17 mg/dL 2018 Unknown COMPREHENSIVE METABOLIC 83617 ALBUMIN 3.9 g/dL 2018 Unknown COMPREHENSIVE METABOLIC 31418 CHLORIDE 108 mmol/L 12/15 Unknown COMPREHENSIVE METABOLIC 42722 Bili Total 0.5 mg/dL 12/15 Unknown COMPREHENSIVE METABOLIC 33436 ALK PHOS 72 U/L 2018 Unknown COMPREHENSIVE METABOLIC 56278 SODIUM 142 mmol/L 12/15 Unknown COMPREHENSIVE METABOLIC 41524 CREATININE 1.02 mg/dL 12/05 Unknown COMPREHENSIVE METABOLIC 85071 CALCIUM 9.3 mg/dL 2018 Unknown COMPREHENSIVE METABOLIC 98054 POTASSIUM 4.0 mmol/L 12/15 Unknown COMPREHENSIVE METABOLIC 48825 Total Protein 6.2 g/dL Unknown COMPREHENSIVE METABOLIC 68812 Glucose 93 mg/dL 2018 Unknown COMPREHENSIVE METABOLIC 73597 Bicarbonate 27 mmol/L 12/05 Unknown COMPREHENSIVE METABOLIC 79259 AGAP 7 mmol/L 2018 Unknown GFR CALC [id number] GFR Non Afr Amr 48 mL/min 08/14/2018 Unk nown GFR CALC [id number] GFR Afr Amr 59 mL/min 08/14/2018 Unknown THYROID STIMULATING HORMONE 28830 TSH 1.936 uIU/mL 08/14/2018 Unknown COMPREHENSIVE METABOLIC 22817 AST 18 U/L 2018 Unknown COMPREHENSIVE METABOLIC 93586 ALT 11 U/L 2018 Unknown COMPREHENSIVE METABOLIC 22539 BUN 18 mg/dL 2018 Unknown COMPREHENSIVE METABOLIC 40879 ALBUMIN 4.2 g/dL 2018 Unknown COMPREHENSIVE METABOLIC 38972 CHLORIDE 109 mmol/L 08/14 Unknown COMPREHENSIVE METABOLIC 57813 Bili Total 0.4 mg/dL 08/14 Unknown COMPREHENSIVE METABOLIC 98724 ALK PHOS 64 U/L 2018 Unknown COMPREHENSIVE METABOLIC 66025 SODIUM 142 mmol/L 08/14 Unknown COMPREHENSIVE METABOLIC 91480 CREATININE 1.09 mg/dL 08/05 Unknown COMPREHENSIVE METABOLIC 56529 CALCIUM 9.3 mg/dL 2018 Unknown COMPREHENSIVE METABOLIC 05427 POTASSIUM 4.7 mmol/L 08/14 Unknown COMPREHENSIVE METABOLIC 57924 Total Protein 6.3 g/dL Unknown COMPREHENSIVE METABOLIC 54674 Glucose 84 mg/dL 2018 Unknown COMPREHENSIVE METABOLIC 35843 Bicarbonate 25 mmol/L 08/05 Unknown COMPREHENSIVE METABOLIC 68759 AGAP 8 mmol/L 2018 Unknown COMPLETE BLOOD COUNT [id number] WBC 7.8 10e9/L 08/15/19 19 Unknown COMPLETE BLOOD COUNT [id number] RBC 4.04 10e12/L 2018 Unknown COMPLETE BLOOD COUNT [id number] HEMOGLOBIN 12.2 g/dL 08/15/19 19 Unknown COMPLETE BLOOD COUNT [id number] HEMATOCRIT 38.6 % 08/15/19 19 Unknown COMPLETE BLOOD COUNT [id number] MCV 95.5 fL 9 Unknown COMPLETE BLOOD COUNT [id number] MCH 30.2 pg 9 Unknown COMPLETE BLOOD COUNT [id number] MCHC 31.6 g/dL 9 Unknown COMPLETE BLOOD COUNT [id number] PLATELET COUNT 215 10e9/L 12/2018 Unknown COMPLETE BLOOD COUNT [id number] Mean Plt Volume 11.2 fL 12/2018 Unknown COMPLETE BLOOD COUNT [id number] Neut Auto 45.7 % 9 Unknown COMPLETE BLOOD COUNT [id number] Lymph Auto 42.1 % 08/15/19 19 Unknown COMPLETE BLOOD COUNT [id number] [place] Auto 9.2 % 9 Unknown COMPLETE BLOOD COUNT [id number] RDW 13.4 % 9 Unknown COMPLETE BLOOD COUNT [id number] Eos Auto 2.7 % 9 Unknown COMPLETE BLOOD COUNT 6094712 Baso Auto 0.3 % 9 Unknown COMPLETE BLOOD COUNT [id number] Neutrophil Abs 3.56 10e9/L Unknown COMPLETE BLOOD COUNT [id number] Lymphocyte Abs 3.28 10e9/L Unknown COMPLETE BLOOD COUNT [id number] Monocyte Abs 0.72 10e9/L 08/05 Unknown COMPLETE BLOOD COUNT [id number] Eosinophil Abs 0.21 10e9/L Unknown COMPLETE BLOOD COUNT [id number] RDW-SD 44.9 fL 9 Unknown COMPLETE BLOOD COUNT [id number] Basophil Abs 0.02 10e9/L 08/05 Unknown COMPLETE BLOOD COUNT [id number] WBC 5.2 10e9/L 12/01/19 18 Unknown COMPLETE BLOOD COUNT [id number] RBC 4.21 10e12/L 2017 Unknown COMPLETE BLOOD COUNT [id number] HEMOGLOBIN 12.8 g/dL 12/01/19 18 Unknown COMPLETE BLOOD COUNT [id number] HEMATOCRIT 39.0 % 12/01/19 18 Unknown COMPLETE BLOOD COUNT [id number] MCV 92.6 fL 8 Unknown COMPLETE BLOOD COUNT [id number] MCH 30.4 pg 8 Unknown COMPLETE BLOOD COUNT [id number] MCHC 32.8 g/dL 8 Unknown COMPLETE BLOOD COUNT [id number] PLATELET COUNT 202 10e9/L Unknown COMPLETE BLOOD COUNT [id number] Mean Plt Volume 10.7 fL Unknown COMPLETE BLOOD COUNT [id number] Neut Auto 40.9 % 8 Unknown COMPLETE BLOOD COUNT [id number] Lymph Auto 46.3 % 12/01/19 18 Unknown COMPLETE BLOOD COUNT [id number] [place] Auto 9.3 % 8 Unknown COMPLETE BLOOD COUNT [id number] RDW 13.7 % 8 Unknown COMPLETE BLOOD COUNT [id number] Eos Auto 2.9 % 8 Unknown COMPLETE BLOOD COUNT [id number] Baso Auto 0.6 % 8 Unknown COMPLETE BLOOD COUNT [id number] Neutrophil Abs 2.13 10e9/L Unknown COMPLETE BLOOD COUNT [id number] Lymphocyte Abs 2.41 10e9/L Unknown COMPLETE BLOOD COUNT [id number] Monocyte Abs 0.48 10e9/L 11/06 Unknown COMPLETE BLOOD COUNT [id number] Eosinophil Abs 0.15 10e9/L Unknown COMPLETE BLOOD COUNT [id number] RDW-SD 45.2 fL 8 Unknown COMPLETE BLOOD COUNT [id number] Basophil Abs 0.03 10e9/L 11/06 [place] [address] Glucose 118 mg/dL 11/30 [place] [address] CREATININE 1.01 mg/dL [place] [address] BUN 14 mg/dL 11/30 [place] [address] SODIUM 141 mmol/L 11/06 [place] [address] POTASSIUM 4.0 mmol/L 11/06 [place] [address] CHLORIDE 108 mmol/L 11/06 [place] [address] Bicarbonate 25 mmol/L [place] [address] AGAP 8 mmol/L 11/30 [place] [address] CALCIUM 9.6 mg/dL 11/30 Unknown FREE T4 86319 T4 Free 1.23 ng/dL 11/30/2017 Unknown GFR CALC [id number] GFR Non Afr Amr 53 mL/min 11/30/2017 Unk nown GFR CALC [id number] GFR Afr Amr >60 mL/min 11/30/2017 Unknow n THYROID STIMULATING HORMONE 55815 TSH 2.124 uIU/mL 11/30/2017 Unknown LIPID GROUP 29926 Cholesterol 152 mg/dL 09/28/2017 Unkno wn LIPID GROUP 73574 Triglyceride 151 mg/dL 09/28/2017 Unkn own LIPID GROUP 38359 HDL CHOLESTEROL 47 mg/dL 09/28/2017 U nknown LIPID GROUP 49487 Chol/HDL Ratio 3.23 ratio 09/28/2017 U nknown LIPID GROUP 46819 NON-HDL Chol 105 mg/dL 09/28/2017 Unkn own LIPID GROUP 29690 LDL Cholesterol 75 mg/dL 09/28/2017 U nknown ASSAY OF TROPONIN QUANT 45524 Troponin-I <0.30 ng/mL Unknown COMPREHENSIVE METABOLIC 83822 AST 20 U/L 2017 Unknown COMPREHENSIVE METABOLIC 98490 ALT 14 U/L 2017 Unknown COMPREHENSIVE METABOLIC 00079 BUN 19 mg/dL 2017 Unknown COMPREHENSIVE METABOLIC 41205 ALBUMIN 4.2 g/dL 2017 Unknown COMPREHENSIVE METABOLIC 55253 CHLORIDE 102 mmol/L 09/27 Unknown COMPREHENSIVE METABOLIC 87216 Bili Total 0.4 mg/dL 09/27 Unknown COMPREHENSIVE METABOLIC 58076 ALK PHOS 66 U/L 2017 Unknown COMPREHENSIVE METABOLIC 12384 SODIUM 135 mmol/L 09/27 Unknown COMPREHENSIVE METABOLIC 11111 CREATININE 1.01 mg/dL 09/05 Unknown COMPREHENSIVE METABOLIC 47967 CALCIUM 9.3 mg/dL 2017 Unknown COMPREHENSIVE METABOLIC 98985 POTASSIUM 4.8 mmol/L 09/27 Unknown COMPREHENSIVE METABOLIC 36225 Total Protein 7.0 g/dL Unknown COMPREHENSIVE METABOLIC 33484 Glucose 91 mg/dL 2017 Unknown COMPREHENSIVE METABOLIC 02634 Bicarbonate 23 mmol/L 09/05 Unknown COMPREHENSIVE METABOLIC 06659 AGAP 10 mmol/L 2017 Unknown COMPLETE BLOOD COUNT [id number] WBC 7.5 10e9/L 09/28/19 18 Unknown COMPLETE BLOOD COUNT [id number] RBC 4.13 10e12/L 2017 Unknown COMPLETE BLOOD COUNT [id number] HEMOGLOBIN 12.6 g/dL 09/28/19 18 Unknown COMPLETE BLOOD COUNT [id number] HEMATOCRIT 38.4 % 09/28/19 18 Unknown COMPLETE BLOOD COUNT 0950108 MCV 93.0 fL 8 Unknown COMPLETE BLOOD COUNT 5870644 MCH 30.5 pg 8 Unknown COMPLETE BLOOD COUNT 8602411 MCHC 32.8 g/dL 8 Unknown COMPLETE BLOOD COUNT [id number] PLATELET COUNT 204 10e9/L Unknown COMPLETE BLOOD COUNT 7146408 Mean Plt Volume 10.9 fL Unknown COMPLETE BLOOD COUNT 5666391 Neut Auto 43.1 % 8 Unknown COMPLETE BLOOD COUNT 0757413 Lymph Auto 45.0 % 09/28/19 18 Unknown COMPLETE BLOOD COUNT 5963340 [place] Auto 9.2 % 8 Unknown COMPLETE BLOOD COUNT 7681452 Eos Auto 2.3 % 8 Unknown COMPLETE BLOOD COUNT 7381428 RDW 13.4 % 8 Unknown COMPLETE BLOOD COUNT 2664051 Baso Auto 0.4 % 8 Unknown COMPLETE BLOOD COUNT [id number] Neutrophil Abs 3.23 10e9/L Unknown COMPLETE BLOOD COUNT 1370402 Lymphocyte Abs 3.38 10e9/L Unknown COMPLETE BLOOD COUNT [id number] Monocyte Abs 0.69 10e9/L 09/05 Unknown COMPLETE BLOOD COUNT 8291827 Eosinophil Abs 0.17 10e9/L Unknown COMPLETE BLOOD COUNT 5013535 RDW-SD 44.4 fL 8 Unknown COMPLETE BLOOD COUNT [id number] Basophil Abs 0.03 10e9/L 09/05 Unknown GFR CALC 1547616 GFR Non Afr Amr 53 mL/min 09/27/2017 Unk nown GFR CALC 8183262 GFR Afr Amr >60 mL/min 09/27/2017 Unknow n GLYCOSYLATED HEMOGLOBIN TEST 65304 Hgb A1c 66665-3 5.4 % 0 09/27/2017 Unknown MEAN GLUC 4197785 Calc Mean Gluc 108 mg/dL 09/27/2017 Unkn own MEAN GLUC 1670958 Calc Mean Gluc 114 mg/dL 11/01/2016 Unkn own LIPID GROUP 86965 Cholesterol 146 mg/dL 11/01/2016 Unkno wn LIPID GROUP 57214 Triglyceride 119 mg/dL 11/01/2016 Unkn own LIPID GROUP 82410 HDL CHOLESTEROL 47 mg/dL 11/01/2016 U nknown LIPID GROUP 35239 Chol/HDL Ratio 3.11 ratio 11/01/2016 U nknown LIPID GROUP 67606 NON-HDL Chol 99 mg/dL 11/01/2016 Unkn own LIPID GROUP 95557 LDL Cholesterol 75 mg/dL 11/01/2016 U nknown GLYCOSYLATED HEMOGLOBIN TEST 72049 Hgb A1c 54222-4 5.6 % 0 11/01/2016 Unknown COMPREHENSIVE METABOLIC 59959 AST 22 U/L 2016 Unknown COMPREHENSIVE METABOLIC 70961 ALT 12 U/L 2016 Unknown COMPREHENSIVE METABOLIC 11982 BUN 17 mg/dL 2016 Unknown COMPREHENSIVE METABOLIC 58263 ALBUMIN 4.0 g/dL 2016 Unknown COMPREHENSIVE METABOLIC 53283 CHLORIDE 110 mmol/L 11/01 Unknown COMPREHENSIVE METABOLIC 93051 Bili Total 0.4 mg/dL 11/01 Unknown COMPREHENSIVE METABOLIC 56766 ALK PHOS 63 U/L 2016 Unknown COMPREHENSIVE METABOLIC 28840 SODIUM 140 mmol/L 11/01 Unknown COMPREHENSIVE METABOLIC 10763 CREATININE 1.05 mg/dL 10/06 Unknown COMPREHENSIVE METABOLIC 17053 CALCIUM 9.2 mg/dL 2016 Unknown COMPREHENSIVE METABOLIC 51022 POTASSIUM 4.2 mmol/L 11/01 Unknown COMPREHENSIVE METABOLIC 69283 Total Protein 6.2 g/dL Unknown COMPREHENSIVE METABOLIC 42728 Glucose 87 mg/dL 2016 Unknown COMPREHENSIVE METABOLIC 35959 Bicarbonate 24 mmol/L 10/06 Unknown COMPREHENSIVE METABOLIC 46833 AGAP 6 mmol/L 2016 Unknown GFR CALC 9592946 GFR Afr Amr >60 mL/min 11/01/2016 Unknow n GFR CALC 3535628 GFR Non Afr Amr 51 mL/min 11/01/2016 Unk nown COMPLETE BLOOD COUNT 6223903 WBC 6.7 10e9/L 11/02/19 17 Unknown COMPLETE BLOOD COUNT [id number] RBC 4.04 10e12/L 2016 Unknown COMPLETE BLOOD COUNT 1892998 HEMOGLOBIN 12.1 g/dL 11/02/19 17 Unknown COMPLETE BLOOD COUNT 7292078 HEMATOCRIT 38.0 % 11/02/19 17 Unknown COMPLETE BLOOD COUNT 8814339 MCV 94.1 fL 7 Unknown COMPLETE BLOOD COUNT 6028399 MCH 30.0 pg 7 Unknown COMPLETE BLOOD COUNT 2895096 MCHC 31.8 g/dL 7 Unknown COMPLETE BLOOD COUNT 8445486 PLATELET COUNT 206 10e9/L Unknown COMPLETE BLOOD COUNT 1519755 Mean Plt Volume 11.3 fL Unknown COMPLETE BLOOD COUNT 5501784 Neut Auto 35.8 % 7 Unknown COMPLETE BLOOD COUNT 8509458 Lymph Auto 51.6 % 11/02/19 17 Unknown COMPLETE BLOOD COUNT 7174091 [place] Auto 8.8 % 7 Unknown COMPLETE BLOOD COUNT 1256291 RDW 13.5 % 7 Unknown COMPLETE BLOOD COUNT 9324052 Eos Auto 3.4 % 7 Unknown COMPLETE BLOOD COUNT 6607080 Baso Auto 0.4 % 7 Unknown COMPLETE BLOOD COUNT 3865545 Neutrophil Abs 2.40 10e9/L Unknown COMPLETE BLOOD COUNT 0028542 Lymphocyte Abs 3.46 10e9/L Unknown COMPLETE BLOOD COUNT 8647162 Monocyte Abs 0.59 10e9/L 10/06 Unknown COMPLETE BLOOD COUNT 4768367 Eosinophil Abs 0.23 10e9/L Unknown COMPLETE BLOOD COUNT 0458061 RDW-SD 45.3 fL 7 Unknown COMPLETE BLOOD COUNT 0684261 Basophil Abs 0.03 10e9/L 10/06 Unknown THYROID STIMULATING HORMONE 58147 TSH 1.981 uIU/mL 11/01/2016 Unknown COMPLETE BLOOD COUNT 5350893 WBC 6.0 10e9/L 05/14/19 17 Unknown COMPLETE BLOOD COUNT 0959022 RBC 4.29 10e12/L 2016 Unknown COMPLETE BLOOD COUNT 4026469 HEMOGLOBIN 12.9 g/dL 05/14/19 17 Unknown COMPLETE BLOOD COUNT 7626521 HEMATOCRIT 38.4 % 05/14/19 17 Unknown COMPLETE BLOOD COUNT 7168491 MCV 89.5 fL 7 Unknown COMPLETE BLOOD COUNT 7141979 MCH 30.1 pg 7 Unknown COMPLETE BLOOD COUNT 0931281 MCHC 33.6 g/dL 7 Unknown COMPLETE BLOOD COUNT 1046985 PLATELET COUNT 181 10e9/L 11/2016 Unknown COMPLETE BLOOD COUNT 6738502 Mean Plt Volume 11.7 fL 11/2016 Unknown COMPLETE BLOOD COUNT 0184510 Neut Auto 36.9 % 7 Unknown COMPLETE BLOOD COUNT 9743639 Lymph Auto 50.4 % 05/14/19 17 Unknown COMPLETE BLOOD COUNT 0904927 [place] Auto 9.0 % 7 Unknown COMPLETE BLOOD COUNT 2230580 RDW 13.7 % 7 Unknown COMPLETE BLOOD COUNT 8101716 Eos Auto 3.4 % 7 Unknown COMPLETE BLOOD COUNT 1785709 Baso Auto 0.3 % 7 Unknown COMPLETE BLOOD COUNT 5127452 Neutrophil Abs 2.21 10e9/L Unknown COMPLETE BLOOD COUNT 0080959 Lymphocyte Abs 3.02 10e9/L Unknown COMPLETE BLOOD COUNT 6830338 Monocyte Abs 0.54 10e9/L 11/2016 Unknown COMPLETE BLOOD COUNT 4159062 Eosinophil Abs 0.20 10e9/L Unknown COMPLETE BLOOD COUNT 3157853 RDW-SD 44.0 fL 7 Unknown COMPLETE BLOOD COUNT 7785478 Basophil Abs 0.02 10e9/L 11/2016 Unknown GLYCOSYLATED HEMOGLOBIN TEST 65485 Hgb A1c 75785-6 5.4 % 0 05/13/2016 Unknown THYROID STIMULATING HORMONE 47547 TSH 2.200 uIU/mL 05/13/2016 Unknown GFR CALC 0344741 GFR Non Afr Amr 50 mL/min 05/13/2016 Unk nown GFR CALC 7067809 GFR Afr Amr >60 mL/min 05/13/2016 Unknow n MEAN GLUC 2385109 Calc Mean Gluc 108 mg/dL 05/13/2016 Unkn own COMPREHENSIVE METABOLIC 87279 AST 18 U/L 2016 Unknown COMPREHENSIVE METABOLIC 39783 ALT 10 U/L 2016 Unknown COMPREHENSIVE METABOLIC 34142 BUN 20 mg/dL 2016 Unknown COMPREHENSIVE METABOLIC 00101 ALBUMIN 4.1 g/dL 2016 Unknown COMPREHENSIVE METABOLIC 74411 CHLORIDE 109 mmol/L 05/13 Unknown COMPREHENSIVE METABOLIC 27378 Bili Total 0.6 mg/dL 05/13 Unknown COMPREHENSIVE METABOLIC 16065 ALK PHOS 64 U/L 2016 Unknown COMPREHENSIVE METABOLIC 47796 SODIUM 141 mmol/L 05/13 Unknown COMPREHENSIVE METABOLIC 08615 CREATININE 1.06 mg/dL 11/2016 Unknown COMPREHENSIVE METABOLIC 29562 CALCIUM 9.9 mg/dL 2016 Unknown COMPREHENSIVE METABOLIC 60679 POTASSIUM 4.2 mmol/L 05/13 Unknown COMPREHENSIVE METABOLIC 08027 Total Protein 6.3 g/dL Unknown COMPREHENSIVE METABOLIC 17633 Glucose 99 mg/dL 2016 Unknown COMPREHENSIVE METABOLIC 91570 Bicarbonate 21 mmol/L 11/2016 Unknown COMPREHENSIVE METABOLIC 60680 AGAP 11 mmol/L 2016 Unknown LIPID GROUP 09425 Cholesterol 169 mg/dL 11/25/2015 Unkno wn LIPID GROUP 23597 Triglyceride 165 mg/dL 11/25/2015 Unkn own LIPID GROUP 15486 HDL CHOLESTEROL 43 mg/dL 11/25/2015 U nknown LIPID GROUP 61739 Chol/HDL Ratio 3.93 ratio 11/25/2015 U nknown LIPID GROUP 61348 NON-HDL Chol 126 mg/dL 11/25/2015 Unkn own LIPID GROUP 99166 LDL Cholesterol 93 mg/dL 11/25/2015 U nknown COMPREHENSIVE METABOLIC 13177 AST 18 U/L 2015 Unknown COMPREHENSIVE METABOLIC 81695 ALT 10 U/L 2015 Unknown COMPREHENSIVE METABOLIC 03481 BUN 20 mg/dL 2015 Unknown COMPREHENSIVE METABOLIC 30722 ALBUMIN 3.9 g/dL 2015 Unknown COMPREHENSIVE METABOLIC 97879 CHLORIDE 110 mmol/L 11/24 Unknown COMPREHENSIVE METABOLIC 50083 Bili Total 0.5 mg/dL 11/24 Unknown COMPREHENSIVE METABOLIC 31550 ALK PHOS 72 U/L 2015 Unknown COMPREHENSIVE METABOLIC 92713 SODIUM 141 mmol/L 11/24 Unknown COMPREHENSIVE METABOLIC 15768 CREATININE 1.12 mg/dL 11/06 Unknown COMPREHENSIVE METABOLIC 03540 CALCIUM 9.7 mg/dL 2015 Unknown COMPREHENSIVE METABOLIC 40941 POTASSIUM 4.4 mmol/L 11/24 Unknown COMPREHENSIVE METABOLIC 19086 Total Protein 6.2 g/dL Unknown COMPREHENSIVE METABOLIC 05943 Glucose 90 mg/dL 2015 Unknown COMPREHENSIVE METABOLIC 82053 Bicarbonate 23 mmol/L 11/06 Unknown COMPREHENSIVE METABOLIC 97211 AGAP 8 mmol/L 2015 Unknown GFR CALC 2349709 GFR Afr Amr 57 mL/min 11/25/2015 Unknown GFR CALC 9679590 GFR Non Afr Amr 47 mL/min 11/25/2015 Unk nown GLYCOSYLATED HEMOGLOBIN TEST 39099 Hgb A1c 37772-1 5.5 % 0 11/25/2015 Unknown THYROID STIMULATING HORMONE 85453 TSH 2.537 uIU/mL 11/25/2015 Unknown FREE T4 85363 T4 Free 1.36 ng/dL 11/25/2015 Unknown COMPLETE BLOOD COUNT 3201522 WBC 6.8 10e9/L 11/25/19 16 Unknown COMPLETE BLOOD COUNT 9863562 RBC 4.20 10e12/L 2015 Unknown COMPLETE BLOOD COUNT 9995655 HEMOGLOBIN 12.5 g/dL 11/25/19 16 Unknown COMPLETE BLOOD COUNT 6087048 HEMATOCRIT 38.0 % 11/25/19 16 Unknown COMPLETE BLOOD COUNT 7135993 MCV 90.5 fL 6 Unknown COMPLETE BLOOD COUNT 0543957 MCH 29.8 pg 6 Unknown COMPLETE BLOOD COUNT 2582507 MCHC 32.9 g/dL 6 Unknown COMPLETE BLOOD COUNT 3953346 PLATELET COUNT 197 10e9/L Unknown COMPLETE BLOOD COUNT 4111686 Mean Plt Volume 11.7 fL Unknown COMPLETE BLOOD COUNT 6637388 Neut Auto 41.3 % 6 Unknown COMPLETE BLOOD COUNT 2003403 Lymph Auto 47.1 % 11/25/19 16 Unknown COMPLETE BLOOD COUNT 0411338 [place] Auto 7.8 % 6 Unknown COMPLETE BLOOD COUNT 6308884 RDW 13.8 % 6 Unknown COMPLETE BLOOD COUNT 6796327 Eos Auto 3.4 % 6 Unknown COMPLETE BLOOD COUNT 9253076 Baso Auto 0.4 % 6 Unknown COMPLETE BLOOD COUNT 5745216 Neutrophil Abs 2.81 10e9/L Unknown COMPLETE BLOOD COUNT 7587437 Lymphocyte Abs 3.20 10e9/L Unknown COMPLETE BLOOD COUNT 3443524 Monocyte Abs 0.53 10e9/L 11/06 Unknown COMPLETE BLOOD COUNT 7736982 Eosinophil Abs 0.23 10e9/L Unknown COMPLETE BLOOD COUNT 1929846 Basophil Abs 0.03 10e9/L 11/06 Unknown COMPLETE BLOOD COUNT 7427427 RDW-SD 44.4 fL 6 Unknown MEAN GLUC 2902192 Calc Mean Gluc 111 mg/dL 11/25/2015 [place] [address] Glucose 89 MG/DL 02/19 [place] [address] CREATININE 1.12 MG/DL [place] [address] BUN 20 MG/DL 02/19 [place] [address] SODIUM 139 MMOL/L 02/04 [place] [address] POTASSIUM 4.6 MMOL/L 02/04 [place] [address] CHLORIDE 108 MMOL/L 02/04 [place] [address] BICARB 26 MMOL/L 02/19 [place] [address] ANION GAP 5 MEQ/L 02/19 [place] [address] CALCIUM 10.0 MG/DL 02/04 Unknown GFR CALC 0017471 GFR AA 57.0L ML/MIN 02/19/2015 Unknow n GFR CALC 8085326 GFR NON-AA 47.0L ML/MIN 02/19/2015 Unkno wn THYROID STIMULATING HORMONE 43602 TSH 2.378 uIU/ML 11/14/2014 Unknown COMPLETE BLOOD COUNT 8045344 WBC 6.4 10e9/L 11/15/19 15 Unknown COMPLETE BLOOD COUNT 7606270 RBC 3.99 10e12/L 2014 Unknown COMPLETE BLOOD COUNT 9708229 HGB 11.9 g/dL 5 Unknown COMPLETE BLOOD COUNT 8322919 HCT DET 36.9 % 5 Unknown COMPLETE BLOOD COUNT 4168279 MCV 92.5 fL 5 Unknown COMPLETE BLOOD COUNT 6545294 MCH 29.8 pg 5 Unknown COMPLETE BLOOD COUNT 3923168 MCHC 32.2 g/dL 5 Unknown COMPLETE BLOOD COUNT 5635493 PLT 172 10e9/L 11/15/19 15 Unknown COMPLETE BLOOD COUNT 5412606 MPV 11.7 fL 5 Unknown COMPLETE BLOOD COUNT 5961065 C[place] % 40.4 % 5 Unknown COMPLETE BLOOD COUNT 7137933 LY % 48.0 % 5 Unknown COMPLETE BLOOD COUNT 1437542 MON % 8.3 % 5 Unknown COMPLETE BLOOD COUNT 2775750 EOS % 2.8 % 5 Unknown COMPLETE BLOOD COUNT 8877561 BASO % 0.5 % 5 Unknown COMPLETE BLOOD COUNT 0322134 RDW 13.6 % 5 Unknown COMPLETE BLOOD COUNT 1485760 ABS CINTHYA 2.59 10e9/L 015 Unknown COMPLETE BLOOD COUNT 7651604 ABS LYMPH 3.07 10e9/L 015 Unknown COMPLETE BLOOD COUNT 7574428 ABS MONO 0.53 10e9/L 015 Unknown COMPLETE BLOOD COUNT 7232816 ABS EOS 0.18 10e9/L 015 Unknown COMPLETE BLOOD COUNT 6943443 ABS BASO 0.03 10e9/L 015 Unknown COMPLETE BLOOD COUNT 8316916 RDW-SD 44.9 fL 5 Unknown LIPID GROUP 61909 HDL TEST 42 MG/DL 11/14/2014 Unknown LIPID GROUP 92071 TRIG 177 MG/DL 11/14/2014 Unknown LIPID GROUP 81610 TEST LDL 72 MG/DL 11/14/2014 Unknown LIPID GROUP 09047 CHOL 149 MG/DL 11/14/2014 Unknown LIPID GROUP 04738 RCHOL/HDL 3.55 RATIO 11/14/2014 Unknow n LIPID GROUP 46343 NON-HDL CH 107 MG/DL 11/14/2014 Unknow n GLYCOSYLATED HEMOGLOBIN TEST 45382 A1C HPLC 56026-8 5.5 % 0 11/14/2014 Unknown FREE T4 67473 FREE T4 1.39 NG/DL 11/14/2014 Unknown GFR CALC 6934940 GFR AA 55.0L ML/MIN 11/14/2014 Unknow n GFR CALC 3055243 GFR NON-AA 46.0L ML/MIN 11/14/2014 Unkno wn COMPREHENSIVE METABOLIC 20392 AST 17 U/L 2014 Unknown COMPREHENSIVE METABOLIC 85271 ALT 10 IU/L 2014 Unknown COMPREHENSIVE METABOLIC 16125 BUN 20 MG/DL 2014 Unknown COMPREHENSIVE METABOLIC 15722 ALBUMIN 3.9 GM/DL 2014 Unknown COMPREHENSIVE METABOLIC 46017 CHLORIDE 111 MMOL/L 11/14 Unknown COMPREHENSIVE METABOLIC 06060 BILI TOT 0.4 MG/DL 2014 Unknown COMPREHENSIVE METABOLIC 59566 ALK PHOS 70 U/L 2014 Unknown COMPREHENSIVE METABOLIC 79462 SODIUM 142 MMOL/L 11/14 Unknown COMPREHENSIVE METABOLIC 20500 CREATININE 1.16 MG/DL 11/05 Unknown COMPREHENSIVE METABOLIC 32225 CALCIUM 9.4 MG/DL 2014 Unknown COMPREHENSIVE METABOLIC 64672 POTASSIUM 4.6 MMOL/L 11/14 Unknown COMPREHENSIVE METABOLIC 16748 PROT TOT 6.2 GM/DL 2014 Unknown COMPREHENSIVE METABOLIC 92109 Glucose 90 MG/DL 2014 Unknown COMPREHENSIVE METABOLIC 90113 BICARB 24 MMOL/L 2014 Unknown COMPREHENSIVE METABOLIC 95187 ANION GAP 7 MEQ/L 2014 Unknown THYROID STIMULATING HORMONE 73207 TSH 2.427 uIU/ML 05/10/2014 Unknown LIPID GROUP 98155 HDL TEST 47 MG/DL 05/10/2014 Unknown LIPID GROUP 34650 TRIG 145 MG/DL 05/10/2014 Unknown LIPID GROUP 92200 TEST LDL 73 MG/DL 05/10/2014 Unknown LIPID GROUP 54388 CHOL 149 MG/DL 05/10/2014 Unknown LIPID GROUP 74305 RCHOL/HDL 3.17 RATIO 05/10/2014 Unknow n LIPID GROUP 92531 NON-HDL CH 102 MG/DL 05/10/2014 Unknow n COMPREHENSIVE METABOLIC 48843 AST 17 U/L 2014 Unknown COMPREHENSIVE METABOLIC 23237 ALT 9 IU/L 2014 Unknown COMPREHENSIVE METABOLIC 39349 BUN 19 MG/DL 2014 Unknown COMPREHENSIVE METABOLIC 23473 ALBUMIN 4.3 GM/DL 2014 Unknown COMPREHENSIVE METABOLIC 30465 CHLORIDE 108 MMOL/L 05/10 Unknown COMPREHENSIVE METABOLIC 33723 BILI TOT 0.5 MG/DL 2014 Unknown COMPREHENSIVE METABOLIC 41825 ALK PHOS 68 U/L 2014 Unknown COMPREHENSIVE METABOLIC 87698 SODIUM 140 MMOL/L 05/10 Unknown COMPREHENSIVE METABOLIC 36822 CREATININE 1.08 MG/DL 08/2014 Unknown COMPREHENSIVE METABOLIC 64146 CALCIUM 9.9 MG/DL 2014 Unknown COMPREHENSIVE METABOLIC 04074 POTASSIUM 4.3 MMOL/L 05/10 Unknown COMPREHENSIVE METABOLIC 28312 PROT TOT 7.2 GM/DL 2014 Unknown COMPREHENSIVE METABOLIC 34267 Glucose 94 MG/DL 2014 Unknown COMPREHENSIVE METABOLIC 19823 BICARB 26 MMOL/L 2014 Unknown COMPREHENSIVE METABOLIC 59300 ANION GAP 6 MEQ/L 2014 Unknown GFR CALC 0691469 GFR AA 60.0L ML/MIN 05/10/2014 Unknow n GFR CALC 9456676 GFR NON-AA 49.0L ML/MIN 05/10/2014 Unkno wn GLYCOSYLATED HEMOGLOBIN TEST 23226 A1C HPLC 44586-5 5.6 % 0 05/10/2014 Unknown COMPLETE BLOOD COUNT 6960209 WBC 7.2 10e9/L 05/11/19 15 Unknown COMPLETE BLOOD COUNT 6397263 RBC 4.28 10e12/L 2014 Unknown COMPLETE BLOOD COUNT 1491277 HGB 12.8 g/dL 5 Unknown COMPLETE BLOOD COUNT 7943356 HCT DET 39.3 % 5 Unknown COMPLETE BLOOD COUNT 3507829 MCV 91.8 fL 5 Unknown COMPLETE BLOOD COUNT 3180423 MCH 29.9 pg 5 Unknown COMPLETE BLOOD COUNT 4580824 MCHC 32.6 g/dL 5 Unknown COMPLETE BLOOD COUNT 8154049 PLT 189 10e9/L 05/11/19 15 Unknown COMPLETE BLOOD COUNT 0496500 MPV 11.2 fL 5 Unknown COMPLETE BLOOD COUNT 8677023 CINTHYA % 38.0 % 5 Unknown COMPLETE BLOOD COUNT 5913837 LY % 51.0 % 5 Unknown COMPLETE BLOOD COUNT 2968605 MON % 7.7 % 5 Unknown COMPLETE BLOOD COUNT 5194571 EOS % 2.9 % 5 Unknown COMPLETE BLOOD COUNT 0226821 BASO % 0.4 % 5 Unknown COMPLETE BLOOD COUNT 0052012 RDW 14.0 % 5 Unknown COMPLETE BLOOD COUNT 0514823 ABS CINTHYA 2.74 10e9/L 015 Unknown COMPLETE BLOOD COUNT 4710108 ABS LYMPH 3.67 10e9/L 015 Unknown COMPLETE BLOOD COUNT 3102224 ABS MONO 0.55 10e9/L 015 Unknown COMPLETE BLOOD COUNT 1283931 ABS EOS 0.21 10e9/L 015 Unknown COMPLETE BLOOD COUNT 6144349 ABS BASO 0.03 10e9/L 015 Unknown COMPLETE BLOOD COUNT 1415525 RDW-SD 46.1 fL 5 Unknown FREE T4 76641 FREE T4 1.14 NG/DL 05/10/2014 Unknown GLYCOSYLATED HEMOGLOBIN TEST 15790 A1C HPLC 52498-5 5.2 % 0 03/29/2013 Unknown FREE T4 96643 FREE T4 1.40 NG/DL 03/28/2013 Unknown GFR CALC 4542965 GFR AA >60 ML/MIN 03/28/2013 Unknown GFR CALC 4123540 GFR NON-AA 52.0L ML/MIN 03/28/2013 Unkno wn COMPREHENSIVE METABOLIC 18439 AST 15 U/L 2013 Unknown COMPREHENSIVE METABOLIC 13817 ALT 9 IU/L 2013 Unknown COMPREHENSIVE METABOLIC 39552 BUN 17 MG/DL 2013 Unknown COMPREHENSIVE METABOLIC 39353 ALBUMIN 4.0 GM/DL 2013 Unknown COMPREHENSIVE METABOLIC 96002 CHLORIDE 112 MMOL/L 03/28 Unknown COMPREHENSIVE METABOLIC 14558 BILI TOT 0.5 MG/DL 2013 Unknown COMPREHENSIVE METABOLIC 99247 ALK PHOS 66 U/L 2013 Unknown COMPREHENSIVE METABOLIC 86447 SODIUM 140 MMOL/L 03/28 Unknown COMPREHENSIVE METABOLIC 84165 CREATININE 1.03 MG/DL 03/08 Unknown COMPREHENSIVE METABOLIC 26262 CALCIUM 9.5 MG/DL 2013 Unknown COMPREHENSIVE METABOLIC 81679 POTASSIUM 4.1 MMOL/L 03/28 Unknown COMPREHENSIVE METABOLIC 00428 PROT TOT 6.2 GM/DL 2013 Unknown COMPREHENSIVE METABOLIC 96510 Glucose 102 MG/DL 2013 Unknown COMPREHENSIVE METABOLIC 91604 BICARB 23 MMOL/L 2013 Unknown COMPREHENSIVE METABOLIC 31651 ANION GAP 5 MEQ/L 2013 Unknown THYROID STIMULATING HORMONE 62485 TSH 2.074 uIU/ML 03/28/2013 Unknown VITAMIN B 12 FOLIC ACID 71606|56165 VIT B 12 423 PG/ML 03/08 Unknown VITAMIN B 12 FOLIC ACID 23258|97569 FOLIC ACID 19.7 NG/ML Unknown LIPID GROUP 42210 HDL TEST 40 MG/DL 03/28/2013 Unknown LIPID GROUP 67848 TRIG 145 MG/DL 03/28/2013 Unknown LIPID GROUP 15458 TEST LDL 81 MG/DL 03/28/2013 Unknown LIPID GROUP 55907 CHOL 150 MG/DL 03/28/2013 Unknown LIPID GROUP 62651 RCHOL/HDL 3.75 RATIO 03/28/2013 Unknow n COMPLETE BLOOD COUNT 7073134 WBC 6.0 10e9/L 03/28/19 14 Unknown COMPLETE BLOOD COUNT 3638493 RBC 4.26 10e12/L 2013 Unknown COMPLETE BLOOD COUNT 4675425 HGB 12.7 g/dL 4 Unknown COMPLETE BLOOD COUNT 5874105 HCT DET 38.7 % 4 Unknown COMPLETE BLOOD COUNT 1376253 MCV 90.8 fL 4 Unknown COMPLETE BLOOD COUNT 8592195 MCH 29.8 pg 4 Unknown COMPLETE BLOOD COUNT 8839238 MCHC 32.8 g/dL 4 Unknown COMPLETE BLOOD COUNT 6881046 PLT 178 10e9/L 03/28/19 14 Unknown COMPLETE BLOOD COUNT 3983205 MPV 11.7 fL 4 Unknown COMPLETE BLOOD COUNT 4767610 CINTHYA % 30.5 % 4 Unknown COMPLETE BLOOD COUNT 9209934 LY % 55.4 % 4 Unknown COMPLETE BLOOD COUNT 1712173 MON % 9.0 % 4 Unknown COMPLETE BLOOD COUNT 6088046 EOS % 4.4 % 4 Unknown COMPLETE BLOOD COUNT 2036824 BASO % 0.7 % 4 Unknown COMPLETE BLOOD COUNT 3887531 RDW 13.3 % 4 Unknown COMPLETE BLOOD COUNT 3469014 ABS CINTHYA 1.83 10e9/L 014 Unknown COMPLETE BLOOD COUNT 7435333 ABS LYMPH 3.32 10e9/L 014 Unknown COMPLETE BLOOD COUNT 4593085 ABS MONO 0.54 10e9/L 014 Unknown COMPLETE BLOOD COUNT 9217513 ABS EOS 0.26 10e9/L 014 Unknown COMPLETE BLOOD COUNT 1315137 ABS BASO 0.04 10e9/L 014 Unknown COMPLETE BLOOD COUNT 2137430 RDW-SD 43.2 fL 4 Unknown HEMOGLOBIN A1C (GLYCOSYLATED) 2962710 A1C HPLC 58448-9 5.5 % 02/24/2012 Unknown COMPLETE BLOOD COUNT 8855525 WBC 6.0 10e9/L 02/23/20 12 Unknown COMPLETE BLOOD COUNT 9344621 RBC 4.22 10e12/L 2011 Unknown COMPLETE BLOOD COUNT 1450360 HGB 12.4 g/dL 2 Unknown COMPLETE BLOOD COUNT 8162043 HCT DET 38.2 % 2 Unknown COMPLETE BLOOD COUNT 2002174 MCV 90.5 fL 2 Unknown COMPLETE BLOOD COUNT 5093600 MCH 29.4 pg 2 Unknown COMPLETE BLOOD COUNT 5790277 MCHC 32.5 g/dL 2 Unknown COMPLETE BLOOD COUNT 9121227 PLT 187 10e9/L 02/23/20 12 Unknown COMPLETE BLOOD COUNT 8173504 MPV 11.5 fL 2 Unknown COMPLETE BLOOD COUNT 2788049 CINTHYA % 36.4 % 2 Unknown COMPLETE BLOOD COUNT 3989501 LY % 51.0 % 2 Unknown COMPLETE BLOOD COUNT 2122286 MON % 8.7 % 2 Unknown COMPLETE BLOOD COUNT 3798382 EOS % 3.2 % 2 Unknown COMPLETE BLOOD COUNT 3024057 BASO % 0.7 % 2 Unknown COMPLETE BLOOD COUNT 1639835 RDW 13.7 % 2 Unknown COMPLETE BLOOD COUNT 3947963 ABS CINTHYA 2.18 10e9/L 012 Unknown COMPLETE BLOOD COUNT 1576354 ABS LYMPH 3.06 10e9/L 012 Unknown COMPLETE BLOOD COUNT 6769235 ABS MONO 0.52 10e9/L 012 Unknown COMPLETE BLOOD COUNT 5589690 ABS EOS 0.19 10e9/L 012 Unknown COMPLETE BLOOD COUNT 1191798 ABS BASO 0.04 10e9/L 012 Unknown COMPLETE BLOOD COUNT 3842239 RDW-SD 44.3 fL 2 Unknown LIPID GROUP 29526 HDL TEST 42 MG/DL 02/23/2012 Unknown LIPID GROUP 59599 TRIG 156 MG/DL 02/23/2012 Unknown LIPID GROUP 35628 TEST LDL 80 MG/DL 02/23/2012 Unknown LIPID GROUP 83123 CHOL 153 MG/DL 02/23/2012 Unknown LIPID GROUP 93170 RCHOL/HDL 3.64 RATIO 02/23/2012 Unknow n FREE T4 47397 FREE T4 1.22 NG/DL 02/23/2012 Unknown COMPREHENSIVE METABOLIC 40339 AST 20 U/L 2011 Unknown COMPREHENSIVE METABOLIC 20025 ALT 11 IU/L 2011 Unknown COMPREHENSIVE METABOLIC 26298 BUN 19 MG/DL 2011 Unknown COMPREHENSIVE METABOLIC 14251 ALBUMIN 4.3 GM/DL 2011 Unknown COMPREHENSIVE METABOLIC 95196 CHLORIDE 109 MMOL/L 02/22 Unknown COMPREHENSIVE METABOLIC 14146 BILI TOT 0.6 MG/DL 2011 Unknown COMPREHENSIVE METABOLIC 26112 ALK PHOS 84 U/L 2011 Unknown COMPREHENSIVE METABOLIC 38362 SODIUM 142 MMOL/L 02/22 Unknown COMPREHENSIVE METABOLIC 76661 CREATININE 1.09 MG/DL 02/04 Unknown COMPREHENSIVE METABOLIC 22334 CALCIUM 9.8 MG/DL 2011 Unknown COMPREHENSIVE METABOLIC 55326 POTASSIUM 4.2 MMOL/L 02/22 Unknown COMPREHENSIVE METABOLIC 90343 PROT TOT 6.4 GM/DL 2011 Unknown COMPREHENSIVE METABOLIC 00292 Glucose 89 MG/DL 2011 Unknown COMPREHENSIVE METABOLIC 55919 BICARB 25 MMOL/L 2011 Unknown COMPREHENSIVE METABOLIC 25147 ANION GAP 8 MEQ/L 2011 Unknown GFR CALC 5980394 GFR AA 60.0L ML/MIN 02/23/2012 Unknow n GFR CALC 7268790 GFR NON-AA 49.0L ML/MIN 02/23/2012 Unkno wn THYROID STIMULATING HORMONE 76383 TSH 2.450 uIU/ML 02/23/2012 Unknown COMPREHENSIVE METABOLIC 81395 AST 22 U/L 2011 Unknown COMPREHENSIVE METABOLIC 07823 ALT 14 IU/L 2011 Unknown COMPREHENSIVE METABOLIC 84817 BUN 21 MG/DL 2011 Unknown COMPREHENSIVE METABOLIC 73593 ALBUMIN 4.3 GM/DL 2011 Unknown COMPREHENSIVE METABOLIC 53695 CHLORIDE 106 MMOL/L 04/01 Unknown COMPREHENSIVE METABOLIC 57872 BILI TOT 0.4 MG/DL 2011 Unknown COMPREHENSIVE METABOLIC 21485 ALK PHOS 80 U/L 2011 Unknown COMPREHENSIVE METABOLIC 23015 SODIUM 141 MMOL/L 04/01 Unknown COMPREHENSIVE METABOLIC 50334 CREATININE 1.13 MG/DL 03/08 Unknown COMPREHENSIVE METABOLIC 76727 CALCIUM 9.4 MG/DL 2011 Unknown COMPREHENSIVE METABOLIC 54839 POTASSIUM 4.3 MMOL/L 04/01 Unknown COMPREHENSIVE METABOLIC 77226 PROT TOT 6.7 GM/DL 2011 Unknown COMPREHENSIVE METABOLIC 93406 Glucose 98 MG/DL 2011 Unknown COMPREHENSIVE METABOLIC 95760 BICARB 25 MMOL/L 2011 Unknown COMPREHENSIVE METABOLIC 55898 ANION GAP 10 MEQ/L 2011 Unknown LIPID GROUP 96655 HDL TEST 44 MG/DL 04/01/2011 Unknown LIPID GROUP 54118 TRIG 164 MG/DL 04/01/2011 Unknown LIPID GROUP 64448 TEST LDL 98 MG/DL 04/01/2011 Unknown LIPID GROUP 50776 CHOL 175 MG/DL 04/01/2011 Unknown LIPID GROUP 20853 RCHOL/HDL 3.98 RATIO 04/01/2011 Unknow n COMPLETE BLOOD COUNT 58120 WBC 6.7 10e9/L 04/01/19 12 Unknown COMPLETE BLOOD COUNT 91801 RBC 4.36 10e12/L 2011 Unknown COMPLETE BLOOD COUNT 66170 HGB 12.9 g/dL 2 Unknown COMPLETE BLOOD COUNT 46532 HCT DET 39.4 % 2 Unknown COMPLETE BLOOD COUNT 22453 MCV 90.4 fL 2 Unknown COMPLETE BLOOD COUNT 66088 MCH 29.6 pg 2 Unknown COMPLETE BLOOD COUNT 65451 MCHC 32.7 g/dL 2 Unknown COMPLETE BLOOD COUNT 49359 PLT 184 10e9/L 04/01/19 12 Unknown COMPLETE BLOOD COUNT 13919 MPV 10.9 fL 2 Unknown COMPLETE BLOOD COUNT 16133 CINTHYA % 41.5 % 2 Unknown COMPLETE BLOOD COUNT 92681 LY % 45.7 % 2 Unknown COMPLETE BLOOD COUNT 62194 MON % 9.4 % 2 Unknown COMPLETE BLOOD COUNT 76316 EOS % 3.0 % 2 Unknown COMPLETE BLOOD COUNT 74513 BASO % 0.4 % 2 Unknown COMPLETE BLOOD COUNT 00550 RDW 13.2 % 2 Unknown COMPLETE BLOOD COUNT 99516 ABS CINTHYA 2.78 10e9/L 012 Unknown COMPLETE BLOOD COUNT 70423 ABS LYMPH 3.06 10e9/L 012 Unknown COMPLETE BLOOD COUNT 79060 ABS MONO 0.63 10e9/L 012 Unknown COMPLETE BLOOD COUNT 04797 ABS EOS 0.20 10e9/L 012 Unknown COMPLETE BLOOD COUNT 87618 ABS BASO 0.03 10e9/L 012 Unknown COMPLETE BLOOD COUNT 41941 RDW-SD 42.3 fL 2 Unknown GFR CALC [id number] GFR AA 57.0L ML/MIN 04/01/2011 Unknow n GFR CALC [id number] GFR NON-AA 47.0L ML/MIN 04/01/2011 Unkno wn THYROID STIMULATING HORMONE 54615 TSH 2.663 uIU/ML 04/01/2011 Unknown FREE T4 12973 FREE T4 1.15 NG/DL 04/01/2011 Unknown THYROID STIMULATING HORMONE 18281 TSH 1.908 uIU/ML 07/06/2010 Unknown COMPLETE BLOOD COUNT 44588 WBC 6.4 10e9/L 07/07/19 11 Unknown COMPLETE BLOOD COUNT 87547 RBC 3.92 10e12/L 2010 Unknown COMPLETE BLOOD COUNT 09043 HGB 11.8 g/dL 1 Unknown COMPLETE BLOOD COUNT 12173 HCT DET 36.0 % 1 Unknown COMPLETE BLOOD COUNT 83624 MCV 91.8 fL 1 Unknown COMPLETE BLOOD COUNT 39019 MCH 30.1 pg 1 Unknown COMPLETE BLOOD COUNT 42833 MCHC 32.8 g/dL 1 Unknown COMPLETE BLOOD COUNT 92694 PLT 176 10e9/L 07/07/19 11 Unknown COMPLETE BLOOD COUNT 48967 MPV 11.4 fL 1 Unknown COMPLETE BLOOD COUNT 68253 CINTHYA % 50.4 % 1 Unknown COMPLETE BLOOD COUNT 70114 LY % 35.5 % 1 Unknown COMPLETE BLOOD COUNT 72855 MON % 10.2 % 1 Unknown COMPLETE BLOOD COUNT 69726 EOS % 3.3 % 1 Unknown COMPLETE BLOOD COUNT 84335 BASO % 0.6 % 1 Unknown COMPLETE BLOOD COUNT 79926 RDW 13.7 % 1 Unknown COMPLETE BLOOD COUNT 63998 ABS CINTHYA 3.23 10e9/L 011 Unknown COMPLETE BLOOD COUNT 49596 ABS LYMPH 2.27 10e9/L 011 Unknown COMPLETE BLOOD COUNT 96095 ABS MONO 0.65 10e9/L 011 Unknown COMPLETE BLOOD COUNT 39670 ABS EOS 0.21 10e9/L 011 Unknown COMPLETE BLOOD COUNT 00759 ABS BASO 0.04 10e9/L 011 Unknown COMPLETE BLOOD COUNT 51476 RDW-SD 45.3 fL 1 Unknown GFR CALC [id number] GFR AA >60 ML/MIN 07/06/2010 Unknown GFR CALC [id number] GFR NON-AA 53.0L ML/MIN 07/06/2010 Unkno wn FREE T4 43250 FREE T4 1.20 NG/DL 07/06/2010 Unknown COMPREHENSIVE METABOLIC 58543 AST 17 U/L 2010 Unknown COMPREHENSIVE METABOLIC 55248 ALT 9 IU/L 2010 Unknown COMPREHENSIVE METABOLIC 65202 BUN 16 MG/DL 2010 Unknown COMPREHENSIVE METABOLIC 18952 ALBUMIN 4.0 GM/DL 2010 Unknown COMPREHENSIVE METABOLIC 74367 CHLORIDE 108 MMOL/L 07/06 Unknown COMPREHENSIVE METABOLIC 17601 BILI TOT 0.5 MG/DL 2010 Unknown COMPREHENSIVE METABOLIC 00230 ALK PHOS 76 U/L 2010 Unknown COMPREHENSIVE METABOLIC 45842 SODIUM 139 MMOL/L 07/06 Unknown COMPREHENSIVE METABOLIC 37975 CREATININE 1.02 MG/DL 04/2010 Unknown COMPREHENSIVE METABOLIC 39925 CALCIUM 9.2 MG/DL 2010 Unknown COMPREHENSIVE METABOLIC 75198 POTASSIUM 4.5 MMOL/L 07/06 Unknown COMPREHENSIVE METABOLIC 20104 PROT TOT 6.1 GM/DL 2010 Unknown COMPREHENSIVE METABOLIC 71761 Glucose 93 MG/DL 2010 Unknown COMPREHENSIVE METABOLIC 28686 BICARB 26 MMOL/L 2010 Unknown COMPREHENSIVE METABOLIC 68881 ANION GAP 5 MEQ/L 2010 Unknown LIPID GROUP 76592 HDL TEST 46 MG/DL 07/06/2010 Unknown LIPID GROUP 89604 TRIG 102 MG/DL 07/06/2010 Unknown LIPID GROUP 21647 TEST LDL 88 MG/DL 07/06/2010 Unknown LIPID GROUP 55709 CHOL 154 MG/DL 07/06/2010 Unknown LIPID GROUP 39790 RCHOL/HDL 3.35 RATIO 07/06/2010 Unknow n Procedures Procedure Codes Date ROUTINE VENIPUNCTURE CPT-4: 88513 03/13/2019 ASSAY THYROID STIM HORMONE CPT-4: 05901 03/13/2019 COMPLETE CBC W/AUTO DIFF WBC CPT-4: 43401 03/13/2019 COMPREHEN METABOLIC PANEL CPT-4: 33176 03/13/2019 ROUTINE VENIPUNCTURE CPT-4: 93083 01/23/2019 LIPID PANEL CPT-4: 35265 01/23/2019 FLU VACC PRSV FREE INC ANTIG 65 AND OLDER CPT-4: 18951 12/26/2018 FLU VACC PRSV FREE INC ANTIG 65 AND OLDER CPT-4: 15650 12/26/2018 ADMIN INFLUENZA VIRUS VAC CPT-4: G0008 12/26/2018 COMPREHEN METABOLIC PANEL CPT-4: 96659 12/15/2018 ROUTINE VENIPUNCTURE CPT-4: 25736 12/15/2018 ROUTINE VENIPUNCTURE CPT-4: 08738 08/14/2018 ASSAY THYROID STIM HORMONE CPT-4: 48870 08/14/2018 COMPREHEN METABOLIC PANEL CPT-4: 46568 08/14/2018 COMPLETE CBC W/AUTO DIFF WBC CPT-4: 25921 08/14/2018 URINALYSIS NONAUTO W/O SCOPE CPT-4: 19142 05/10/2018 URINE CULTURE/ COLONY COUNT CPT-4: 09356 05/10/2018 URINE CULTURE/ COLONY COUNT CPT-4: 70323 12/06/2017 ROUTINE VENIPUNCTURE CPT-4: 71775 11/30/2017 ASSAY OF FREE THYROXINE CPT-4: 86940 11/30/2017 ASSAY THYROID STIM HORMONE CPT-4: 60117 11/30/2017 COMPLETE CBC W/AUTO DIFF WBC CPT-4: 34302 11/30/2017 METABOLIC PANEL TOTAL CA CPT-4: 41703 11/30/2017 FLU VACC PRSV FREE INC ANTIG 65 AND OLDER CPT-4: 75526 11/22/2017 ASSAY, GLUCOSE, BLOOD QUANT CPT-4: 36966 11/22/2017 ADMIN INFLUENZA VIRUS VAC CPT-4: G0008 11/22/2017 ROUTINE VENIPUNCTURE CPT-4: 95957 09/27/2017 COMPREHEN METABOLIC PANEL CPT-4: 36642 09/27/2017 COMPLETE CBC W/AUTO DIFF WBC CPT-4: 75307 09/27/2017 A1C HPLC CPT-4: 60365 09/27/2017 ASSAY OF TROPONIN QUANT CPT-4: 77862 09/27/2017 LIPID PANEL CPT-4: 94254 09/27/2017 THER/PROPH/DIAG INJ SC/IM CPT-4: 00741 05/30/2017 TRIAMCINOLONE ACET INJ NOS CPT-4: J3301 05/30/2017 URINALYSIS NONAUTO W/O SCOPE CPT-4: 86861 04/18/2017 URINE CULTURE/ COLONY COUNT CPT-4: 38243 04/18/2017 FLU VACC PRSV FREE INC ANTIG 65 AND OLDER CPT-4: 98524 12/10/2016 ADMIN INFLUENZA VIRUS VAC CPT-4: G0008 12/10/2016 ROUTINE VENIPUNCTURE CPT-4: 62917 11/01/2016 COMPREHEN METABOLIC PANEL CPT-4: 97742 11/01/2016 COMPLETE CBC W/AUTO DIFF WBC CPT-4: 72029 11/01/2016 LIPID PANEL CPT-4: 55619 11/01/2016 A1C HPLC CPT-4: 95816 11/01/2016 ASSAY THYROID STIM HORMONE CPT-4: 80289 11/01/2016 ROUTINE VENIPUNCTURE CPT-4: 42363 05/13/2016 ASSAY THYROID STIM HORMONE CPT-4: 15582 05/13/2016 COMPREHEN METABOLIC PANEL CPT-4: 66815 05/13/2016 COMPLETE CBC W/AUTO DIFF WBC CPT-4: 69391 05/13/2016 A1C HPLC CPT-4: 61681 05/13/2016 FLU VACC PRSV FREE INC ANTIG 65 AND OLDER CPT-4: 22317 12/12/2015 ADMIN INFLUENZA VIRUS VAC CPT-4: G0008 12/12/2015 ROUTINE VENIPUNCTURE CPT-4: 38492 11/25/2015 ASSAY OF FREE THYROXINE CPT-4: 40621 11/25/2015 ASSAY THYROID STIM HORMONE CPT-4: 12770 11/25/2015 COMPREHEN METABOLIC PANEL CPT-4: 32122 11/25/2015 COMPLETE CBC W/AUTO DIFF WBC CPT-4: 41088 11/25/2015 LIPID PANEL CPT-4: 56191 11/25/2015 A1C HPLC CPT-4: 69264 11/25/2015 URINALYSIS NONAUTO W/O SCOPE CPT-4: 59060 05/21/2015 ROUTINE VENIPUNCTURE CPT-4: 42323 02/19/2015 METABOLIC PANEL TOTAL CA CPT-4: 13478 02/19/2015 PRESCRIP TRANSMIT VIA ERX SY CPT-4: G8553 02/19/2015 FLU VACC PRSV FREE INC ANTIG 65 AND OLDER CPT-4: 48166 12/20/2014 ADMIN INFLUENZA VIRUS VAC CPT-4: G0008 12/20/2014 URINALYSIS NONAUTO W/O SCOPE CPT-4: 62640 11/19/2014 URINE CULTURE/ COLONY COUNT CPT-4: 72151 11/19/2014 ROUTINE VENIPUNCTURE CPT-4: 03108 11/14/2014 ASSAY OF FREE THYROXINE CPT-4: 90084 11/14/2014 ASSAY THYROID STIM HORMONE CPT-4: 44576 11/14/2014 COMPREHEN METABOLIC PANEL CPT-4: 44113 11/14/2014 COMPLETE CBC W/AUTO DIFF WBC CPT-4: 69056 11/14/2014 LIPID PANEL CPT-4: 61193 11/14/2014 A1C HPLC CPT-4: 20244 11/14/2014 CERUM REMOVAL CPT-4: 20069 09/27/2014 PRESCRIP TRANSMIT VIA ERX SY CPT-4: G8553 07/11/2014 FLUZONE, 5ML (Medicare) CPT-4: Q2038 12/21/2013 ADMIN INFLUENZA VIRUS VAC CPT-4: G0008 12/21/2013 PRESCRIP TRANSMIT VIA ERX SY CPT-4: G8553 10/17/2013 PRESCRIP TRANSMIT VIA ERX SY CPT-4: G8553 09/24/2013 PRESCRIP TRANSMIT VIA ERX SY CPT-4: G8553 05/31/2013 ROUTINE VENIPUNCTURE CPT-4: 74237 03/28/2013 ASSAY OF FREE THYROXINE CPT-4: 30343 03/28/2013 ASSAY THYROID STIM HORMONE CPT-4: 35541 03/28/2013 COMPREHEN METABOLIC PANEL CPT-4: 32796 03/28/2013 COMPLETE CBC W/AUTO DIFF WBC CPT-4: 99704 03/28/2013 LIPID PANEL CPT-4: 46123 03/28/2013 A1C HPLC CPT-4: 34802 03/28/2013 VITAMIN B 12 FOLIC ACID CPT-4: 61938|54484 03/28/2013 PRESCRIP TRANSMIT VIA ERX SY CPT-4: G8553 03/26/2013 PRESCRIP TRANSMIT VIA ERX SY CPT-4: G8553 12/19/2012 FLUZONE, 5ML (Medicare) CPT-4: Q2038 11/27/2012 ADMIN INFLUENZA VIRUS VAC CPT-4: G0008 11/27/2012 PRESCRIP TRANSMIT VIA ERX SY CPT-4: G8553 10/04/2012 PRESCRIP TRANSMIT VIA ERX SY CPT-4: G8553 07/14/2012 ROUTINE VENIPUNCTURE CPT-4: 13997 02/23/2012 ASSAY OF FREE THYROXINE CPT-4: 07629 02/23/2012 ASSAY THYROID STIM HORMONE CPT-4: 58772 02/23/2012 COMPREHEN METABOLIC PANEL CPT-4: 09122 02/23/2012 COMPLETE CBC W/AUTO DIFF WBC CPT-4: 65060 02/23/2012 LIPID PANEL CPT-4: 99705 02/23/2012 A1C GLYCOSYLATED HEMOGLOBIN TEST CPT-4: 20895 012 CERUM REMOVAL CPT-4: 83539 02/22/2012 PRESCRIP TRANSMIT VIA ERX SY CPT-4: G8553 02/22/2012 PRESCRIP TRANSMIT VIA ERX SY CPT-4: G8553 12/15/2011 FLUZONE, 5ML (Medicare) CPT-4: Q2038 12/02/2011 ADMIN INFLUENZA VIRUS VAC CPT-4: G0008 12/02/2011 ASSAY, GLUCOSE, BLOOD QUANT CPT-4: 02544 09/21/2011 URINALYSIS NONAUTO W/O SCOPE CPT-4: 16375 09/16/2011 URINE CULTURE/ COLONY COUNT CPT-4: 95568 09/16/2011 ROUTINE VENIPUNCTURE CPT-4: 76358 09/15/2011 ASSAY OF FREE THYROXINE CPT-4: 99445 09/15/2011 ASSAY THYROID STIM HORMONE CPT-4: 69839 09/15/2011 COMPREHEN METABOLIC PANEL CPT-4: 62096 09/15/2011 COMPLETE CBC W/AUTO DIFF WBC CPT-4: 65880 09/15/2011 LIPID PANEL CPT-4: 54007 09/15/2011 ASSAY OF INSULIN CPT-4: 89246 09/15/2011 A1C GLYCOSYLATED HEMOGLOBIN TEST CPT-4: 68699 012 DRAIN/INJECT JOINT/BURSA CPT-4: 85400 08/16/2011 METHYLPREDNISOLONE 40 MG INJ CPT-4: J1030 08/16/2011 TRIAMCINOLONE ACET INJ NOS CPT-4: J3301 08/16/2011 PRESCRIP TRANSMIT VIA ERX SY CPT-4: G8553 08/03/2011 PRESCRIP TRANSMIT VIA ERX SY CPT-4: G8553 07/26/2011 METHYLPREDNISOLONE 40 MG INJ CPT-4: J1030 06/28/2011 DRAIN/INJECT JOINT/BURSA CPT-4: 91993 06/28/2011 TRIAMCINOLONE ACET INJ NOS CPT-4: J3301 06/28/2011 PRESCRIP TRANSMIT VIA ERX SY CPT-4: G8553 06/28/2011 ROUTINE VENIPUNCTURE CPT-4: 28306 04/01/2011 ASSAY OF FREE THYROXINE CPT-4: 94414 04/01/2011 ASSAY THYROID STIM HORMONE CPT-4: 42025 04/01/2011 COMPREHEN METABOLIC PANEL CPT-4: 90586 04/01/2011 COMPLETE CBC W/AUTO DIFF WBC CPT-4: 36160 04/01/2011 LIPID PANEL CPT-4: 91562 04/01/2011 PRESCRIP TRANSMIT VIA ERX SY CPT-4: G8553 03/31/2011 CERUM REMOVAL CPT-4: 23323 02/11/2011 PRESCRIP TRANSMIT VIA ERX SY CPT-4: G8553 02/11/2011 FLUZONE, 5ML (Medicare) CPT-4: Q2038 12/09/2010 ADMIN INFLUENZA VIRUS VAC CPT-4: G0008 12/09/2010 PRESCRIP TRANSMIT VIA ERX SY CPT-4: G8553 10/15/2010 URINALYSIS NONAUTO W/O SCOPE CPT-4: 03141 09/29/2010 URINE CULTURE/ COLONY COUNT CPT-4: 54671 09/29/2010 CUR TOBACCO NON-USER CPT-4: G8457 09/29/2010 ROUTINE VENIPUNCTURE CPT-4: 98712 07/06/2010 COMPLETE CBC W/AUTO DIFF WBC CPT-4: 37858 07/06/2010 COMPREHEN METABOLIC PANEL CPT-4: 24499 07/06/2010 LIPID PANEL CPT-4: 92811 07/06/2010 ASSAY THYROID STIM HORMONE CPT-4: 63540 07/06/2010 ASSAY OF FREE THYROXINE CPT-4: 78684 07/06/2010 PRESCRIP TRANSMIT VIA ERX SY CPT-4: G8553 07/02/2010 INJ TRIGGER POINT 1/2 MUSCL CPT-4: 67873 04/06/2010 TRIAMCINOLONE ACET INJ NOS CPT-4: J3301 04/06/2010 METHYLPREDNISOLONE 40 MG INJ CPT-4: J1030 04/06/2010 THER/PROPH/DIAG INJ SC/IM CPT-4: 30838 04/01/2010 KETOROLAC TROMETHAMINE INJ CPT-4: J1885 04/01/2010 PRESCRIP TRANSMIT VIA ERX SY CPT-4: G8553 01/22/2010 FLU VACCINE 3 YRS & > IM UP 64 CPT-4: 59613 0 ADMIN INFLUENZA VIRUS VAC CPT-4: G0008 12/10/2009 URINALYSIS NONAUTO W/O SCOPE CPT-4: 68332 12/02/2009 URINE CULTURE/ COLONY COUNT CPT-4: 87200 12/02/2009 PRESCRIP TRANSMIT VIA ERX SY CPT-4: G8553 12/02/2009 THER/PROPH/DIAG INJ SC/IM CPT-4: 20148 09/10/2009 VITAMIN B12 INJECTION CPT-4: J3420 09/10/2009 THER/PROPH/DIAG INJ SC/IM CPT-4: 07920 08/11/2009 VITAMIN B12 INJECTION CPT-4: J3420 08/11/2009 ROUTINE VENIPUNCTURE CPT-4: 79448 06/10/2009 Vital Signs Date Vital 03/20/2019 Blood [...] 1: 142/60 Code: 8480-6 BMI: 38.2 Code: 61008-8 Heart Rate 1: 48 bpm Height: 5'2" Respiratory Rate: 20 bpm SpO2: 98% Tempera ture: 36.7 (C) / 98.1 (F) Weight: 212 lbs 01/10/2018 Blood Pressure 1: 142/64 Code: 8480-6 BMI: 38.5 Code: 77980-8 Heart Rate 1: 52 bpm Height: 5'2" Respiratory Rate: 22 bpm SpO2: 96% Tempera ture: 36.1 (C) / 96.9 (F) Weight: 214 lbs 12/06/2017 Blood Pressure 1: 124/80 Code: 8480-6 BMI: 38.3 Code: 51428-3 Heart Rate 1: 68 bpm Height: 5'2" Respiratory Rate: 20 bpm Temperature: 36 .3 (C) / 97.4 (F) Weight: 213 lbs 11/22/2017 Blood Pressure 1: 132/78 Code: 8480-6 BMI: 37.6 Code: 95642-3 Heart Rate 1: 68 bpm Height: 5'2" Respiratory Rate: 20 bpm SpO2: 97% Tempera ture: 36.8 (C) / 98.2 (F) Weight: 209 lbs 10/20/2017 Blood Pressure 1: 150/76 Code: 8480-6 BMI: 38.5 Code: 02405-4 Heart Rate 1: 64 bpm Height: 5'2" Respiratory Rate: 20 bpm SpO2: 97% Tempera ture: 36.2 (C) / 97.2 (F) Weight: 214 lbs 09/27/2017 Blood Pressure 1: 122/74 Code: 8480-6 BMI: 38.2 Code: 40351-0 Heart Rate 1: 64 bpm Height: 5'2" Respiratory Rate: 18 bpm SpO2: 96% Tempera ture: 35.8 (C) / 96.4 (F) Weight: 212 lbs 08/16/2017 Blood Pressure 1: 124/78 Code: 8480-6 BMI: 37.8 Code: 63679-9 Heart Rate 1: 76 bpm Height: 5'2" Respiratory Rate: 20 bpm Temperature: 36 .8 (C) / 98.3 (F) Weight: 210 lbs 07/07/2017 Blood Pressure 1: 136/70 Code: 8480-6 BMI: 38.0 Code: 68313-8 Heart Rate 1: 68 bpm Height: 5'2" Respiratory Rate: 20 bpm SpO2: 97% Tempera ture: 36.8 (C) / 98.2 (F) Weight: 211 lbs 05/30/2017 Blood Pressure 1: 140/65 Code: 8480-6 Heart Rate 1: 75 bpm Respiratory Rate: 24 bpm SpO2: 95% Temperature: 37.0 (C) / 98.6 (F) We ight: 211 lbs 04/18/2017 Blood Pressure 1: 154/70 Code: 8480-6 BMI: 37.6 Code: 40879-4 Heart Rate 1: 76 bpm Height: 5'2" Respiratory Rate: 20 bpm SpO2: 98% Tempera ture: 36.9 (C) / 98.5 (F) Weight: 209 lbs 10/25/2016 Blood Pressure 1: 156/70 Code: 8480-6 BMI: 37.1 Code: 76533-8 Heart Rate 1: 72 bpm Height: 5'2" Respiratory Rate: 20 bpm SpO2: 97% Tempera ture: 37.0 (C) / 98.6 (F) Weight: 206 lbs 09/20/2016 Blood Pressure 1: 152/78 Code: 8480-6 BMI: 36.8 Code: 16732-6 Heart Rate 1: 78 bpm Height: 5'2" Respiratory Rate: 20 bpm SpO2: 98% Tempera ture: 36.1 (C) / 97.0 (F) Weight: 204 lbs 05/12/2016 Blood Pressure 1: 142/70 Code: 8480-6 BMI: 36.9 Code: 33067-1 Heart Rate 1: 64 bpm Height: 5'2" [...] 1: 122/64 Code: 8480-6 BMI: 39.1 Code: 03233-2 Heart Rate 1: 76 bpm Height: 5'2" Respiratory Rate: 20 bpm Temperature: 36 .8 (C) / 98.2 (F) Weight: 217 lbs 05/21/2015 Blood Pressure 1: 144/70 Code: 8480-6 BMI: 39.4 Code: 00935-3 Heart Rate 1: 76 bpm Height: 5'2" Respiratory Rate: 20 bpm Temperature: 36 .6 (C) / 97.9 (F) Weight: 219 lbs 02/19/2015 Blood Pressure 1: 152/60 Code: 8480-6 BMI: 39.6 Code: 91774-4 Heart Rate 1: 84 bpm Height: 5'2" Respiratory Rate: 20 bpm Temperature: 37 .0 (C) / 98.6 (F) Weight: 220 lbs 11/13/2014 Blood Pressure 1: 146/76 Code: 8480-6 BMI: 39.8 Code: 95371-5 Heart Rate 1: 88 bpm Height: 5'2" Respiratory Rate: 20 bpm Temperature: 37 .0 (C) / 98.6 (F) Weight: 221 lbs 09/27/2014 Blood Pressure 1: 132/70 Code: 8480-6 BMI: 39.1 Code: 43270-7 Heart Rate 1: 88 bpm Height: 5'2" Respiratory Rate: 20 bpm Temperature: 36 .4 (C) / 97.6 (F) Weight: 217 lbs 07/11/2014 Blood Pressure 1: 132/66 Code: 8480-6 BMI: 39.9 Code: 58396-7 Heart Rate 1: 72 bpm Height: 5'2" Respiratory Rate: 20 bpm Temperature: 36 .9 (C) / 98.4 (F) Weight: 218 lbs 05/23/2014 Blood Pressure 1: 136/80 Code: 8480-6 Heart Rate 1: 76 bpm Respiratory Rate: 20 bpm Temperature: 36.7 (C) / 98.0 (F) Weight: 224 lbs 03/20/2014 Blood Pressure 1: 134/78 Code: 8480-6 BMI: 39.7 Code: 57556-9 Heart Rate 1: 84 bpm Height: 5'2" Respiratory Rate: 20 bpm Temperature: 36 .7 (C) / 98.0 (F) Weight: 217 lbs 10/17/2013 Blood Pressure 1: 146/78 Code: 8480-6 BMI: 39.5 Code: 96312-9 Heart Rate 1: 82 bpm Height: 5'2" Respiratory Rate: 18 bpm Temperature: 35 .6 (C) / 96.1 (F) Weight: 216 lbs 09/24/2013 Blood Pressure 1: 134/70 Code: 8480-6 BMI: 37.9 Code: 82583-5 Heart Rate 1: 80 bpm Height: 5'3" Respiratory Rate: 20 bpm Temperature: 36 .8 (C) / 98.2 (F) Weight: 214 lbs 05/31/2013 Blood Pressure 1: 132/70 Code: 8480-6 BMI: 37.6 Code: 97637-7 Heart Rate 1: 80 bpm Height: 5'3" Respiratory Rate: 20 bpm Temperature: 36 .8 (C) / 98.3 (F) Weight: 212 lbs 03/26/2013 Blood Pressure 1: 116/74 Code: 8480-6 Heart Rate 1: 68 bpm Respiratory Rate: 20 bpm Temperature: 36.2 (C) / 97.1 (F) Weight: 212 lbs 12/19/2012 Blood Pressure 1: 132/82 Code: 8480-6 BMI: 37.4 Code: 64888-7 Heart Rate 1: 76 bpm Height: 5'3" Respiratory Rate: 20 bpm Temperature: 36 .7 (C) / 98.0 (F) Weight: 211 lbs 12/04/2012 Blood Pressure 1: 130/76 Code: 8480-6 He art Rate 1: 78 bpm 11/27/2012 Blood Pressure 1: 140/82 Code: 8480-6 BMI: 36.8 Code: 89402-3 Heart Rate 1: 66 bpm Height: 5'3" Respiratory Rate: 20 bpm Temperature: 36 .1 (C) / 96.9 (F) Weight: 208 lbs 10/04/2012 Blood Pressure 1: 138/80 Code: 8480-6 BMI: 36.4 Code: 95743-6 Heart Rate 1: 72 bpm Height: 5'4" Respiratory Rate: 20 bpm Temperature: 36 .7 (C) / 98.0 (F) Weight: 212 lbs 07/27/2012 Blood Pressure 1: 124/70 Code: 8480-6 BMI: 36.9 Code: 02361-2 Heart Rate 1: 60 bpm Height: 5'4" Temperature: 36.1 (C) / 97.0 (F) Weight: 215 lbs 07/14/2012 Blood Pressure 1: 132/86 Code: 8480-6 BMI: 36.9 Code: 05832-9 Heart Rate 1: 76 bpm Height: 5'4" Respiratory Rate: 20 bpm Temperature: 36 .8 (C) / 98.2 (F) Weight: 215 lbs 06/08/2012 Blood Pressure 1: 134/82 Code: 8480-6 BMI: 36.6 Code: 94097-9 Heart Rate 1: 72 bpm Height: 5'4" Respiratory Rate: 20 bpm Temperature: 36 .3 (C) / 97.4 (F) Weight: 213 lbs 02/22/2012 Blood Pressure 1: 142/80 Code: 8480-6 BMI: 37.1 Code: 51146-7 Heart Rate 1: 76 bpm Height: 5'4" Respiratory Rate: 20 bpm Temperature: 36 .8 (C) / 98.3 (F) Weight: 216 lbs 12/28/2011 Blood Pressure 1: 128/68 Code: 8480-6 BMI: 37.6 Code: 84003-0 Heart Rate 1: 72 bpm Height: 5'4" [...] 1: 128/78 Code: 8480-6 BMI: 38.1 Code: 09389-1 Heart Rate 1: 84 bpm Height: 5'4" Respiratory Rate: 20 bpm Temperature: 36 .9 (C) / 98.4 (F) Weight: 222 lbs 08/16/2011 Blood Pressure 1: 138/80 Code: 8480-6 BMI: 37.9 Code: 47537-4 Heart Rate 1: 74 bpm Height: 5'4" Temperature: 36.1 (C) / 97.0 (F) Weight: 221 lbs 08/03/2011 Blood Pressure 1: 126/78 Code: 8480-6 BMI: 38.4 Code: 19941-9 Heart Rate 1: 72 bpm Height: 5'4" Respiratory Rate: 20 bpm Temperature: 36 .7 (C) / 98.0 (F) Weight: 224 lbs 07/26/2011 Blood Pressure 1: 138/72 Code: 8480-6 BMI: 38.4 Code: 38773-3 Heart Rate 1: 72 bpm Height: 5'4" Respiratory Rate: 20 bpm Temperature: 36 .6 (C) / 97.9 (F) Weight: 224 lbs 06/28/2011 Blood Pressure 1: 122/78 Code: 8480-6 BMI: 38.8 Code: 84538-8 Heart Rate 1: 88 bpm Height: 5'4" Respiratory Rate: 20 bpm Temperature: 36 .6 (C) / 97.8 (F) Weight: 226 lbs 03/31/2011 Blood Pressure 1: 116/60 Code: 8480-6 BMI: 38.1 Code: 45638-1 Heart Rate 1: 92 bpm Height: 5'4" Respiratory Rate: 20 bpm Temperature: 36 .8 (C) / 98.2 (F) Weight: 222 lbs 02/11/2011 Blood Pressure 1: 118/62 Code: 8480-6 BMI: 37.9 Code: 56957-3 Heart Rate 1: 80 bpm Height: 5'4" Temperature: 36.5 (C) / 97.7 (F) Weight: 221 lbs 10/15/2010 Blood Pressure 1: 132/70 Code: 8480-6 Heart Rate 1: 84 bpm Respiratory Rate: 20 bpm Temperature: 36.7 (C) / 98.0 (F) Weight: 221 lbs 09/29/2010 Blood Pressure 1: 114/72 Code: 8480-6 BMI: 37.6 Code: 61608-2 Heart Rate 1: 76 bpm Height: 5'4" [...] 1: 120/70 Code: 8480-6 BMI: 38.3 Code: 61621-0 Heart Rate 1: 88 bpm Height: 5'5" [...] but had more that day. While at [facility] began to feel very ill and became [...] 09/27/2014 pain, limb 07/11/2014 follow up 05/23/2014 [facility] fw high blood pressure 03/20/2014 injection(s) 12/21/2013 flu shot sinusitis 10/17/2013 high blood pressure 09/24/2013 cough 05/31/[address] Brown e's office so he started he on amlodipine [...] 06/09/2009 Encounters Encounter Performer Location Codes Date ([id number]) OFFICE/OUTPATIENT VISIT EST Diagnosis: Essential (primary) hypertension[ICD10: I10] Diagnosis: Palpitations[ICD10: R00.2] Vikki BENJAMIN [facility] CPT-4: 58799 03/20/2019 ([id number]) OFFICE/OUTPATIENT VISIT EST Diagnosis: Essential hypertension[ICD10: I10] Diagnosis: Palpitations[ICD10: R00.2] Diagnosis: Stress reaction[ICD10: F43.0] Vikki GUAMAN DO [facility] CPT-4: 93505 03/13/2019 ([id number]) NURSE/OUTPATIENT VISIT EST Diagnosis: Mixed hyperlipidemia[ICD10: E78.2] Vikki GUAMAN [facility] CPT-4: 84428 01/23/2019 ([id number]) NURSE/OUTPATIENT VISIT EST Diagnosis: FLU VACCINE[ICD10: Z23] Vikki BALL DO [facility] CPT-4: 40383 12/26/2018 ([id number]) NURSE/OUTPATIENT VISIT EST Diagnosis: Chronic kidney disease, stage 1[ICD10: N18.1] Vikki GUAMAN DO [facility] CPT-4: 63284 12/15/2018 ([id number]) OFFICE/OUTPATIENT VISIT EST Diagnosis: Acute serous otitis media, left ear[ICD10: H65.02] Jennifer GUAMAN DO [facility] CPT-4: 11539 11/07/2018 ([id number]) OFFICE/OUTPATIENT VISIT EST Diagnosis: Essential (primary) hypertension[ICD10: I10] Diagnosis: 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] Diagnosis: Hypoglycemia, unspecified[ICD10: E16.2] Diagnosis: Other fatigue[ICD10: R53.83] Diagnosis: Urinary tract infection, site not specified[ICD10: N39.0] Vikki GUAMAN DO [facility] CPT-4: 49608 08/14/2018 ([id number]) OFFICE/OUTPATIENT VISIT EST Diagnosis: Essential (primary) hypertension[ICD10: I10] Diagnosis: Gastro-esophageal reflux disease without esophagitis[ICD10: K21.9] Diagnosis: Urinary tract infection, site not specified[ICD10: N39.0] Vikki GUAMAN DO [facility] CPT-4: 17149 05/10/2018 ([id number]) OFFICE/OUTPATIENT VISIT EST Diagnosis: Gastro-esophageal reflux disease without esophagitis[ICD10: K21.9] Diagnosis: Epigastric pain[ICD10: R10.13] Vikki GUAMAN DO [facility] CPT-4: 66843 02/14/2018 ([id number]) OFFICE/OUTPATIENT VISIT EST 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] Diagnosis: Essential (primary) hypertension[ICD10: I10] Diagnosis: Generalized anxiety disorder[ICD10: F41.1] Diagnosis: Gastro-esophageal reflux disease without esophagitis[ICD10: K21.9] Vikki GUAMAN DO [facility] CPT-4: 45902 01/10/2018 OFFICE/OUTPATIENT VISIT EST Diagnosis: Gastro-esophageal reflux disease without esophagitis[ICD10: K21.9] Diagnosis: Palpitations[ICD10: R00.2] Diagnosis: Urinary tract infection, site not specified[ICD10: N39.0] Diagnosis: Generalized anxiety disorder[ICD10: F41.1] Vikki GUAMAN Yun Yun [facility] CPT-4: 95901 12/06/2017 ([id number]) NURSE/OUTPATIENT VISIT EST Diagnosis: 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] Diagnosis: Hypoglycemia, unspecified[ICD10: E16.2] Diagnosis: Dizziness and giddiness[ICD10: R42] Diagnosis: Occlusion and stenosis of bilateral carotid arteries[ICD10: I65.23] Vikki GUAMAN DO [facility] CPT-4: 12260 11/30/2017 OFFICE/OUTPATIENT VISIT EST Diagnosis: Epigastric pain[ICD10: R10.13] Diagnosis: Generalized anxiety disorder[ICD10: F41.1] Diagnosis: FLU VACCINE[ICD10: Z23] Vikki BALL Yun Yun [facility] CPT-4: 66492 11/22/2017 ([id number]) OFFICE/OUTPATIENT VISIT EST Diagnosis: Essential (primary) hypertension[ICD10: I10] Diagnosis: Hypoglycemia, unspecified[ICD10: E16.2] Diagnosis: Gastro-esophageal reflux disease without esophagitis[ICD10: K21.9] Vikki GUAMAN [facility] CPT-4: 20324 10/20/2017 ([id number]) OFFICE/OUTPATIENT VISIT EST Diagnosis: Dizziness and giddiness[ICD10: R42] Jennifer GUAMAN [facility] CPT-4: 38277 09/27/2017 ([id number]) OFFICE/OUTPATIENT VISIT EST Diagnosis: Cervicalgia[ICD10: M54.2] Diagnosis: Other spondylosis with radiculopathy, cervical region[ICD10: M47.22] Vikki GUAMAN [facility] CPT-4: 57556 08/16/2017 ([id number]) OFFICE/OUTPATIENT VISIT EST Diagnosis: Hypoglycemia, unspecified[ICD10: E16.2] Diagnosis: Other spondylosis with radiculopathy, cervical region[ICD10: M47.22] Diagnosis: Vertigo of central origin, 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] Diagnosis: 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] Vikki GUAMAN [facility] CPT-4: 93011 07/07/2017 ([id number]) OFFICE/OUTPATIENT VISIT EST Diagnosis: Benign paroxysmal vertigo, bilateral[ICD10: H81.13] Diagnosis: Otalgia, bilateral[ICD10: H92.03] Jennifer GUAMAN [facility] CPT-4: 18516 05/30/2017 ([id number]) OFFICE/OUTPATIENT VISIT EST Diagnosis: Low back pain[ICD10: M54.5] Diagnosis: Radiculopathy, lumbosacral region[ICD10: M54.17] Diagnosis: Left lower quadrant pain[ICD10: R10.32] Vikki Peckfunmilayosakshi GUAMAN [facility] CPT-4: 80395 04/18/2017 ([id number]) OFFICE/OUTPATIENT VISIT EST Diagnosis: FLU VACCINE[ICD10: Z23] Vikki BALL [facility] CPT-4: 02273 12/10/2016 ([id number]) OFFICE/OUTPATIENT VISIT EST Diagnosis: Mixed hyperlipidemia[ICD10: E78.2] Diagnosis: Essential (primary) hypertension[ICD10: I10] 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] Diagnosis: Impaired fasting glucose[ICD10: R73.01] Diagnosis: Other fatigue[ICD10: R53.83] Vikki GUAMAN [facility] CPT-4: 92774 11/01/2016 ([id number]) OFFICE/OUTPATIENT VISIT EST Diagnosis: Pain in thoracic spine[ICD10: M54.6] Diagnosis: Other intervertebral disc degeneration, 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] Vikki GUAMAN [facility] CPT-4: 53493 10/25/2016 ([id number]) OFFICE/OUTPATIENT VISIT EST Diagnosis: Left lower quadrant pain[ICD10: R10.32] Diagnosis: Low back pain[ICD10: M54.5] Vikki RUBI [facility] CPT-4: 18421 09/20/2016 ([id number]) OFFICE/OUTPATIENT VISIT EST Diagnosis: Mixed hyperlipidemia[ICD10: E78.2] Diagnosis: Essential (primary) hypertension[ICD10: I10] Diagnosis: Hypoglycemia, unspecified[ICD10: E16.2] Vikki GUAMAN [facility] CPT-4: 85262 05/13/2016 ([id number]) OFFICE/OUTPATIENT VISIT EST Diagnosis: Impaired fasting glucose[ICD10: R73.01] Diagnosis: Mastodynia[ICD10: N64.4] Diagnosis: Mixed hyperlipidemia[ICD10: E78.2] Diagnosis: Essential (primary) hypertension[ICD10: I10] Diagnosis: Other fatigue[ICD10: R53.83] Vikki GUAMAN [facility] CPT-4: 51424 05/12/2016 ([id number]) OFFICE/OUTPATIENT VISIT EST Diagnosis: Acute upper respiratory infection, unspecified[ICD10: J06.9] Yue Moya VIKKI GUAMAN [facility] CPT-4: 24458 03/18/2016 ([id number]) OFFICE/OUTPATIENT VISIT EST Diagnosis: Acute mastoiditis without complications, right ear[ICD10: H70.001] Vikki GUAMAN DO [facility] CPT-4: 48048 02/06/2016 ([id number]) OFFICE/OUTPATIENT VISIT EST Diagnosis: FLU VACCINE[ICD10: Z23] Vikki BALL [facility] CPT-4: 14131 12/12/2015 ([id number]) OFFICE/OUTPATIENT VISIT EST Diagnosis: Mixed hyperlipidemia[ICD10: E78.2] Diagnosis: Essential (primary) hypertension[ICD10: I10] 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] Diagnosis: Impaired fasting glucose[ICD10: R73.01] Vikki GUAMAN [facility] CPT-4: 43816 11/25/2015 ([id number]) OFFICE/OUTPATIENT VISIT EST Diagnosis: Constipation, unspecified[ICD10: K59.00] Vikki GUAMAN [facility] CPT-4: 06181 08/26/2015 ([id number]) OFFICE/OUTPATIENT VISIT EST Diagnosis: Essential (primary) hypertension[ICD10: I10] Diagnosis: Mixed hyperlipidemia[ICD10: E78.2] Diagnosis: Chronic kidney disease, stage 1[ICD10: N18.1] Vikki GUAMAN [facility] CPT-4: 19629 05/21/2015 ([id number]) OFFICE/OUTPATIENT VISIT EST Diagnosis: Muscle weakness (generalized)[ICD10: M62.81] Diagnosis: Dizziness and giddiness[ICD10: R42] Diagnosis: Essential (primary) hypertension[ICD10: I10] Diagnosis: History of falling[ICD10: Z91.81] Vikki Peckfunmilayosakshi GUAMAN [facility] CPT-4: 59018 02/19/2015 ([id number]) OFFICE/OUTPATIENT VISIT EST Diagnosis: FLU VACCINE[ICD10: Z23] Vikki Ciscofunmilayosakshi BALL [facility] CPT-4: 64867 12/20/2014 ([id number]) OFFICE/OUTPATIENT VISIT EST Diagnosis: Acute renal failure[ICD9: 584.9] Diagnosis: POLYURIA[ICD9: 788.42] Vikki Rees [facility] CPT-4: 32484 11/19/2014 ([id number]) OFFICE/OUTPATIENT VISIT EST Diagnosis: HYPERLIPIDEMIA NEC/NOS[ICD9: 272.4] Diagnosis: HYPERTENSION[ICD9: 401.9] Diagnosis: CAD[ICD9: 414.00] Diagnosis: Hyperglycemia[ICD9: 790.29] Diagnosis: MALAISE AND FATIGUE[ICD9: 780.79] Vikki KEARNEYQUELIN Deidra GUAMAN [facility] CPT-4: 98544 11/14/2014 ([id number]) OFFICE/OUTPATIENT VISIT EST Diagnosis: MALAISE AND FATIGUE[ICD9: 780.79] Diagnosis: HYPOGLYCEMIA[ICD9: 251.2] Diagnosis: Grieving[ICD9: 309.0] Diagnosis: ABDOMINAL PAIN[ICD9: 789.00] Vikki CORTEZLINE Alyssa GUAMAN [facility] CPT-4: 02350 11/13/2014 OFFICE/OUTPATIENT VISIT EST Diagnosis: CERUMEN IMPACTION[ICD9: 380.4] Diagnosis: EUSTACHIAN TUBE DYSFUNCTION[ICD9: 381.81] Jessenia Francis VIKKI GUAMAN [facility] CPT-4: 00600 09/27/2014 ([id number]) OFFICE/OUTPATIENT VISIT EST Diagnosis: Leg pain[ICD9: 729.5] Diagnosis: SUPERFIC PHLEBITIS-LEG[ICD9: 451.0] Vikki Ciscobhavya NIÑO AlejandraSujata GLENIS [facility] CPT-4: 65285 07/11/2014 ([id number]) OFFICE/OUTPATIENT VISIT EST Diagnosis: Thoracic back pain[ICD9: 724.1] Diagnosis: SPASM OF MUSCLE[ICD9: 728.85] Vikki CORTEZLINE Alyssa GUAMAN [facility] CPT-4: 37504 05/23/2014 ([id number]) OFFICE/OUTPATIENT VISIT EST Diagnosis: DIZZINESS/VERTIGO[ICD9: 780.4] Diagnosis: Benign positional vertigo[ICD9: 386.11] Diagnosis: HYPERTENSION[ICD9: 401.9] Diagnosis: Suspicious nevus[ICD9: 238.2] Vikki GUAMAN [facility] CPT-4: 46161 03/20/2014 ([id number]) OFFICE/OUTPATIENT VISIT EST Diagnosis: FLU VACCINE[ICD10: Z23] Vikki CID [facility] CPT-4: 22815 12/21/2013 OFFICE/OUTPATIENT VISIT EST Diagnosis: SINUSITIS, ACUTE[ICD9: 461.9] Diagnosis: EUSTACHIAN TUBE DYSFUNCTION[ICD9: 381.81] Jessenia GUAMAN [facility] CPT-4: 32381 10/17/2013 ([id number]) OFFICE/OUTPATIENT VISIT EST Diagnosis: DIZZINESS/VERTIGO[ICD9: 780.4] Diagnosis: HYPERTENSION[ICD9: 401.9] [facility] 94557 09/24/2013 ([id number]) OFFICE/OUTPATIENT VISIT EST Diagnosis: HYPERTENSION[ICD9: 401.9] Diagnosis: MALAISE AND FATIGUE[ICD9: 780.79] Diagnosis: SINUSITIS, ACUTE[ICD9: 461.9] [facility]: 34508 05/31/2013 ([id number]) OFFICE/OUTPATIENT VISIT EST Diagnosis: HYPERLIPIDEMIA NEC/NOS[ICD9: 272.4] Diagnosis: HYPERTENSION[ICD9: 401.9] Diagnosis: B12 DEFIC ANEMIA NEC[ICD9: 281.1] Diagnosis: HYPOGLYCEMIA[ICD9: 251.2] Vikki MARTINEZ [facility] CPT-4: 72043 03/28/2013 OFFICE/OUTPATIENT VISIT EST Diagnosis: COUGH[ICD9: 786.2] Jessenia GUAMAN [facility] CPT-4: 80336 03/26/2013 OFFICE/OUTPATIENT VISIT EST Diagnosis: COUGH[ICD9: 786.2] Diagnosis: URI, ACUTE[ICD9: 465.9] Jessenia CID [facility] CPT-4: 38097 12/19/2012 ([id number]) OFFICE/OUTPATIENT VISIT EST Diagnosis: HYPERTENSION[ICD9: 401.9] Diagnosis: CEPHALGIA[ICD9: 784.0] Diagnosis: ANXIETY STATE NOS[ICD9: 300.00] Diagnosis: FLU VACCINE[ICD9: V04.81] Vikki MARTINEZ [facility] CPT-4: 34310 11/27/2012 ([id number]) OFFICE/OUTPATIENT VISIT EST Diagnosis: DIZZINESS/VERTIGO[ICD9: 780.4] Diagnosis: SINUSITIS, ACUTE[ICD9: 461.9] Diagnosis: Benign positional vertigo[ICD9: 386.11] Vikki GUAMAN [facility] CPT-4: 87013 10/04/2012 OFFICE/OUTPATIENT VISIT EST Diagnosis: OTITIS MEDIA NOS[ICD9: 382.9] Vikki GUAMAN [facility] CPT-4: 66206 07/27/2012 OFFICE/OUTPATIENT VISIT EST Diagnosis: Perforation of ear drum[ICD9: 384.20] Diagnosis: SINUSITIS, ACUTE[ICD9: 461.9] Vikki GUAMAN [facility] CPT-4: 25910 07/14/2012 ([id number]) OFFICE/OUTPATIENT VISIT EST Diagnosis: Mastalgia[ICD9: 611.71] Vikki CID [facility] CPT-4: 16138 06/08/2012 ([id number]) OFFICE/OUTPATIENT VISIT EST Diagnosis: HYPERLIPIDEMIA NEC/NOS[ICD9: 272.4] Diagnosis: HYPERTENSION[ICD9: 401.9] Diagnosis: DIZZINESS/VERTIGO[ICD9: 780.4] Diagnosis: Hyperglycemia[ICD9: 790.29] Diagnosis: MALAISE AND FATIGUE[ICD9: 780.79] Vikki RobertsSujata GLENIS [facility] CPT-4: 12728 02/23/2012 ([id number]) OFFICE/OUTPATIENT VISIT EST Diagnosis: EUSTACHIAN TUBE DYSFUNCTION[ICD9: 381.81] Diagnosis: DIZZINESS/VERTIGO[ICD9: 780.4] Diagnosis: ABDOMINAL PAIN[ICD9: 789.00] Diagnosis: GERD[ICD9: 530.81] Diagnosis: CERUMEN IMPACTION[ICD9: 380.4] Vikki GUAMAN [facility] CPT-4: 79113 02/22/2012 OFFICE/OUTPATIENT VISIT EST Diagnosis: ABDOMINAL PAIN[ICD9: 789.00] Diagnosis: DYSPEPSIA[ICD9: 536.8] Vikki Rees [facility] CPT-4: 90978 12/28/2011 ([id number]) OFFICE/OUTPATIENT VISIT EST Diagnosis: ABDOMINAL PAIN[ICD9: 789.00] Diagnosis: DYSPEPSIA[ICD9: 536.8] Diagnosis: IBS[ICD9: 564.1] Vikki GUAMAN [facility] CPT - 4: 31279 12/15/2011 OFFICE/OUTPATIENT VISIT EST Diagnosis: DIZZINESS/VERTIGO[ICD9: 780.4] Diagnosis: HYPOGLYCEMIA[ICD9: 251.2] Vikki MARTINEZ [facility] CPT-4: 17282 09/21/2011 ([id number]) OFFICE/OUTPATIENT VISIT EST Diagnosis: URINARY TRACT INFECTION[ICD9: 599.0] Vikki GUAMAN [facility] CPT-4: 02481 09/16/2011 ([id number]) OFFICE/OUTPATIENT VISIT EST Diagnosis: HYPERLIPIDEMIA NEC/NOS[ICD9: 272.4] Diagnosis: HYPERTENSION[ICD9: 401.9] Diagnosis: MALAISE AND FATIGUE[ICD9: 780.79] Diagnosis: DIZZINESS/VERTIGO[ICD9: 780.4] Vikki GUAMAN [facility] CPT-4: 36773 09/15/2011 ([id number]) OFFICE/OUTPATIENT VISIT EST Diagnosis: DIZZINESS/VERTIGO[ICD9: 780.4] Diagnosis: MALAISE AND FATIGUE[ICD9: 780.79] Diagnosis: HYPERTENSION[ICD9: 401.9] Vikki MARTINEZ [facility] CPT-4: 22431 09/13/2011 OFFICE/OUTPATIENT VISIT EST Diagnosis: LUMB/LUMBOSAC DISC DEGEN[ICD9: 722.52] Diagnosis: Radiculopathy of leg[ICD9: 724.4] Diagnosis: 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] Diagnosis: SPINAL ENTHESOPATHY[ICD9: 720.1] Vikki GUAMAN [facility] CPT-4: 42723 08/16/2011 ([id number]) OFFICE/OUTPATIENT VISIT EST Diagnosis: PAIN, LOWER BACK[ICD9: 724.2] Diagnosis: SPASM OF MUSCLE[ICD9: 728.85] Diagnosis: SCIATICA[ICD9: 724.3] Diagnosis: Lumbar degenerative disc disease[ICD9: 722.52] Vikki GUAMAN DO [facility] CPT-4: 61044 08/03/2011 ([id number]) OFFICE/OUTPATIENT VISIT EST Diagnosis: PAIN IN THORACIC SPINE[ICD9: 724.1] Diagnosis: SPASM OF MUSCLE[ICD9: 728.85] Vikki GUAMAN [facility] CPT-4: 28810 07/26/2011 ([id number]) OFFICE/OUTPATIENT VISIT EST Diagnosis: PAIN, LOWER BACK[ICD9: 724.2] Diagnosis: SPASM OF MUSCLE[ICD9: 728.85] Diagnosis: Sacroiliac dysfunction[ICD9: 739.4] Diagnosis: Lumbar degenerative disc disease[ICD9: 722.52] Vikki GUAMAN [facility] CPT-4: 04359 06/28/2011 OFFICE/OUTPATIENT VISIT EST Diagnosis: MALAISE AND FATIGUE[ICD9: 780.79] Diagnosis: HYPOTENSION[ICD9: 458.9] Diagnosis: CAD[ICD9: 414.00] Vikki GUAMAN [facility] CPT-4: 29755 03/31/2011 OFFICE/OUTPATIENT VISIT EST Diagnosis: SINUSITIS, ACUTE[ICD9: 461.9] Diagnosis: PHARYNGITIS, ACUTE[ICD9: 462] Diagnosis: CERUMEN IMPACTION[ICD9: 380.4] Vikki GUAMAN [facility] CPT-4: 19788 02/11/2011 OFFICE/OUTPATIENT VISIT EST Diagnosis: PAIN IN THORACIC SPINE[ICD9: 724.1] Diagnosis: GERD[ICD9: 530.81] Diagnosis: DIZZINESS/VERTIGO[ICD9: 780.4] Vikki [facility]KE [facility] CPT-4: 39552 10/15/2010 OFFICE/OUTPATIENT VISIT EST [facility]ki [facility] CPT- 4: 80987 09/29/2010 ([id number]) OFFICE/OUTPATIENT VISIT EST Vikki PATHAK SSujata [facility] CPT-4: 23304 07/02/2010 ([id number]) OFFICE/OUTPATIENT VISIT, EST Diagnosis: PAIN, LOWER BACK[ICD9: 724.2] Vikki PIKE SSujata [facility] CPT-4: 79840 04/06/2010 ([id number]) OFFICE/OUTPATIENT VISIT, EST Vikki CRISOSTOMO [facility] CPT-4: 32639 04/01/2010 ([id number]) OFFICE/OUTPATIENT VISIT, EST Vikki [facility] CPT-4: 40711 01/22/2010 ([id number]) OFFICE/OUTPATIENT VISIT, EST Vikki [facility] CPT-4: 50328 12/02/2009 ([id number]) OFFICE/OUTPATIENT VISIT, EST Vikki [facility] CPT-4: 89374 10/21/2009 ([id number]) OFFICE/OUTPATIENT VISIT, EST Vikki [facility] CPT-4: 67580 09/10/2009 ([id number]) OFFICE/OUTPATIENT VISIT, EST Vikki [facility] CPT-4: 86323 08/11/2009 ([id number]) OFFICE/OUTPATIENT VISIT, EST Vikki [facility] CPT-4: 33624 06/09/2009 Plan of Care Planned Activity Notes Codes Status Date Visit Diagnosis Plan: Essential (primary) hypertension Discussion: Improving with higher dose of metoprolol Recheck 2weeks ICD-9 : 401.9 ICD-10 : I10 03/20/2019 Visit Diagnosis Plan: Palpitations Discussion: Continu e higher dose of metoprolol ICD-9 : 785.1 ICD-10 : R00.2 03/20/2019 Appointment: Vikki Guamantel: [address] [place] [address] FOLLOW UP 03/20/2019 Appointment: Vikki Guamantel: [address] [place] [address] 03/13/2019--moved up to [facility] 03/13/19 at 4pm (km) [place] 03/15/2019 Visit Diagnosis Plan: Palpitations Discussion: Check C BC, CMP, TSH ICD-9 : 785.1 ICD-10 : R00.2 03/13/2019 Visit Diagnosis Plan: Essential hypertension Discussio n: Increase metoprolol to 25mg q AM and 50mg po q pM Recheck 1 week ICD-9 : 401.9 ICD-10 : I10 03/13/2019 Appointment: Vikki Guaman WPtel: [address] [place] [address] US BP CHECK 03/13/2019 Appointment: Vikki Guamantel: [address] [place] [address] ACUTE ILLNESS 03/13/2019 Patient Education: metoprolol tartrate- OptimizeRX [facility] [id number] [email or web address] Completed 03/13/2019 Care Plan: X-RAY EXAM NECK SPINE 4/5VWS LOINC : 31715-0 Pending 03/13/2019 Care Plan: X-RAY EXAM THORAC SPINE4/>VW LOINC : 01567-8 Pending 03/13/2019 Appointment: Vikki Guaman WPtel: [address] [place] [address] US LAB 01/23/2019 Appointment: Vikki Guaman WPtel: [phone] [facility] US INJECTION 12/26/2018 Patient Education: INFLUENZA VACCINE [facility] Completed 12/26/2018 Appointment: Vikki Guaman WPtel: [address] [place], [place] [phone] LAB 12/15/2018 Visit Diagnosis Plan: [...] ICD-10 : H65.02 11/07/2018 Appointment: Jennifer Rosario [address] [place] [address] ACUTE ILLNESS 11/07/2018 Visit Diagnosis Plan: Urinary [...] : R53.83 08/14/2018 Appointment: Vikki Guaman WPtel: [address] [place], [place] [phone] FOLLOW UP 08/14/2018 Visit Diagnosis Plan: Essential [...] : K21.9 05/10/2018 Appointment: Vikki Guaman WPtel: [address] [place], [place] [phone] [place] FOLLOW UP 05/10/2018 Patient Education: metoprolol tartrate- [employer]imizeRX [facility] [id number] [email or web address] Completed 05/10/2018 Appointment: Vikki Guaman WPtel: [address] [place], [place] [id number] [place] CANCELED 04/21/2018 Visit Diagnosis Plan: Gastro-esophageal reflux disease without esophagitis Discussion: Continue protonix and carafate Proceed with updated EGD ICD-9 : 530.81 ICD-10 : K21.9 02/14/2018 Visit Diagnosis Plan: Epigastric pain Discussion: [facility] CT abdomen/pelvis due to ongoing abdominal pain ICD-9 : 789.06 ICD-10 : R10.13 02/14/2018 Appointment: Vikki Guaman WPtel[facility] [facility] FO[facility] 02/14/2018 Care Plan: CT PELVIS W/O DYE LOINC : 361 08-9 Pending 02/14/2018 Care Plan: CT ABDOMEN W/O DYE LOINC : 36 103-0 Pending 02/14/2018 Care Plan: Referral Order SNOMED-CT : [id number] Pending 02/14/2018 Visit Diagnosis Plan: Atherosclerotic he art disease of chickaloon coronary artery without angina pectoris Discussion: S/P [...] : I10 01/10/2018 Appointment: Vikki Guaman WPtel: [address] [place] [address] FOLLOW UP 01/10/2018 Visit Diagnosis Plan: Gastro-esophageal [...] : R00.2 12/06/2017 Appointment: Vikki Guaman WPtel: [address] [place], [place] [address] FOLLOW UP 12/06/2017 Patient Education: Patient Medication Summary Completed 12/06/2017 Appointment: Vikki Guaman WPtel: [address] [place] [address] US LAB 11/30/2017 Patient Education: Patient Medication [...] : F41.1 11/22/2017 Appointment: Vikki Guaman WPtel: [address] [place] [address] FOLLOW UP 11/22/2017 Patient Education: Patient Medication [...] : K21.9 10/20/2017 Appointment: Vikki Guaman WPtel: [address] [place] [address] ACUTE ILLNESS 10/20/2017 Patient Education: Patient Medication Summary Completed 10/20/2017 Visit Diagnosis Plan: Dizziness and giddiness Discussi on: blood work to be completed in office including cmp, cbc, troponin to rule out glucose intolerance, infection, dehydration. 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 brown's office. will have front office make appt. patient has carotid doppler annually. ICD-9 : 780.4 ICD-10 : R42 09/27/2017 Appointment: Jennifer Rosario [address] [place] [address] ACUTE ILLNESS 09/27/2017 Patient Education: Patient Medication Summary Completed 09/27/2017 Visit Diagnosis Plan: Cervicalgia Discussion: Complete course of PT since symptoms improved Continue stretching exercises Notify if symptoms return or worsen ICD-9 : 723.1 ICD-10 : M54.2 08/16/2017 Appointment: Vikki Guaman WPtel: [address] [place] [address] FOLLOW UP 08/16/2017 Patient Education: Patient Medication [...] H81.43 07/07/2017 Appointment: Vikki Guaman WPtel: [phone] [facility] 07/07/2017 Patient Education: Patient Medication Summary Completed 07/07/2017 Care Plan: MRI NECK SPINE W/O DYE LOINC : 96915-9 Pending 07/07/2017 Visit Diagnosis Plan: Otalgia, bilateral [...] ICD-10 : H81.13 05/30/2017 Appointment: Jennifer Rosario [address] [place], [place] [address] ACUTE ILLNESS 05/30/2017 Patient Education: Patient Medication [...] : M54.17 04/18/2017 Appointment: Vikki Guaman WPtel: [address] [place], [place] [phone] ACUTE ILLNESS 04/18/2017 Patient Education: Patient Medication Summary Completed 04/18/2017 Appointment: Vikki Guaman WPtel: [address] [place], [place] [phone] US INJECTION 12/10/2016 Patient Education: Patient Medication Summary Completed 12/10/2016 Appointment: Vikki Guaman WPtel: [address] [place], [place] [phone] US LAB 11/01/2016 Patient Education: Patient Medication Summary Completed 11/01/2016 Visit Diagnosis Plan: Pain in thoracic spine Discussio n: PT has helped Continue stretches and walking Discussed joining [facility] to continue exercise ICD-9 : 724.1 ICD-10 : M54.6 10/25/2016 Visit Diagnosis Plan: Other intervertebral disc degene ration, lumbar region Follow Up: 3 months ICD-9 : 722.52 ICD-10 : M51.36 10/25/2016 Appointment: Vikki Guaman WPtel: [address] [place], [place] [phone] FOLLOW UP 10/25/2016 Patient Education: Patient Medication [...] : R10.32 09/20/2016 Appointment: Vikki Guaman WPtel: [address] [place] [address] ACUTE ILLNESS 09/20/2016 Patient Education: Patient Medication Summary Completed 09/20/2016 Appointment: Vikki Guamantel: [address] [place] [address] US LAB 05/13/2016 Patient Education: Patient Medication [...] : N64.4 05/12/2016 Appointment: Vikki Guaman WPtel: [address] [place] [address] 3/7 confirmed `sl ACUTE ILLNESS 05/12/2016 Patient Education: Patient Medication Summary Completed 05/12/2016 Care Plan: MAMMOGRAM SCREENING LOINC : 2 6347-5 Pending 05/12/2016 Visit Diagnosis Plan: Acute upper respiratory infectio n, unspecified Discussion: Exam is reassuring Likely viral illness Supportive care reviewed and encouraged Follow up PRN ICD-9 : 465.9 ICD-10 : J06.9 03/18/2016 Appointment: Yue Moya [address] [place] [address] ACUTE ILLNESS 03/18/2016 Patient Education: Patient Medication Summary Completed 03/18/2016 Visit Plan: Supportive care. Rest, Fluid s, Tylenol/Motrin prn fever or bodyaches. Notify if worsening symptoms. 02/06/2016 Appointment: Vikki Guamantel: [address] [place] [address] ACUTE ILLNESS 02/06/2016 Patient Education: Patient Medication Summary Completed 02/06/2016 Appointment: Vikki Guaman: [address] [place], [place] [phone] US INJECTION 12/12/2015 Patient Education: Patient Medication Summary Completed 12/12/2015 Appointment: Vikki Guaman WPtel: [address] [place], [place] [phone] US LAB 11/25/2015 Patient Education: Patient Medication Summary Completed 11/25/2015 Visit Plan: Add miralax daily Use daily probiotic and metamucil and push fluids Notify if worsens/persists 08/26/2015 Appointment: Vikki Guaman WPtel: [address] [place] [address] US 08/25/15 confirmed ~sl ACUTE ILLNESS 08/26/2015 Patient Education: Patient Medication Summary Completed 08/26/2015 Visit Plan: No NSAIDs Kidney function di scussed Discussed hydration Monitor lab every 4months so will check CMP, HbA1C next month 05/21/2015 Appointment: Vikki Guaman WPtel: [address] [place], [place] [phone] [place] 05/19 confirmed ~sl ACUTE ILLNESS 05/21/2015 Patient Education: Patient Medication Summary Completed 05/21/2015 Visit Plan: Vestibular exercises Refill flonase Strict low Na diet--discussed that needs to read labels Rx for walker with chair given due to muscle weakness/unsteadiness Has carotids and abdominal aorta and legs checked in March Check Chem 7 02/19/2015 Appointment: Vikki Guaman WPtel: [address] [place], [place] [phone] [place] 02/18/15 appt confirmed cn FOLLOW UP 02/19 Patient Education: Patient Medication Summary Completed 02/19/2015 Patient Education: Vertigo Completed 1 04/22/2014 Appointment: Vikki Guaman WPtel: [address] [place], [place] [phone] [place] INJECTION 12/20/2014 Patient Education: Patient Medication Summary Completed 12/20/2014 Appointment: Vikki Guaman WPtel: [address] [place], [place] [phone] [place] [address] 11/19/2014 Patient Education: Patient Medication Summary Completed 11/19/2014 Referral: Edy Cheek WPtel: #1 [facility] Ronny Hoyt [id number] [place] Referral Completed 11/18/2014 Appointment: Vikki Guaman WPtel: [address] [place] [address] LAB 11/14/2014 Patient Education: Patient Medication Summary Completed 11/14/2014 Visit Plan: Check CMP, CBC, TSH, Free T4 , B12, Lipids, HbA1C Discussed 6 small meals a day each with protein Would likely benefit from antidepressant Update colonoscopy 11/13/2014 Appointment: Vikki Guaman WPtel: [address] [place] [address] 11/12/14 confirmed ACUTE ILLNESS 11/13/2014 Patient Education: Patient Medication Summary Completed 11/13/2014 Visit Plan: Cerumen flush with warm wate r and peroxide - good results Resume Nasonex nasal spray daily Recommended Debrox earwax removal drops 09/27/2014 Appointment: Jessenia Francis WPtel: [address] [place] [address] ACUTE ILLNESS 09/27/2014 Patient Education: Patient Medication Summary Completed 09/27/2014 Visit Plan: Continue aspirin daily Add m eloxicam for 1week [employer] Ice Call on Tuesday07/11/2014 Appointment: Vikki Guaman WPtel: [address] [place] [address] ACUTE ILLNESS 07/11/2014 Patient Education: Patient Medication Summary Completed 07/11/2014 Visit Plan: Been using baclofen at [facility] and has helped some PT for next 2-4weeks 05/23/2014 Appointment: Vikki Guaman WPtel: [address] [place] [address] Hospital Follow Up 05/23/2014 Patient Education: Patient Medication Summary Completed 05/23/2014 Appointment: Vikki Guaman WPtel: [address] [place], [place] [phone] LAB 05/10/2014 Appointment: Vikki Guaman WPtel: [address] [place], [place] [phone] feeling better, weather - FOLLOW UP 04/07 Referral: Edy Cheek WPtel: [facility] Ronny Hoyt [id number] [place] Referral Appointment Requested 04/03/2014 Visit Plan: Continue exercise and curren t meds See surgery for removal of right arm lesion 03/20/2014 Appointment: Vikki Guaman WPtel: [address] [place], [place] [phone] FOLLOW UP 03/20/2014 Patient Education: Patient Medication Summary Completed 03/20/2014 Appointment: Vikki Guaman WPtel: [address] [place], [place] [phone] [place] INJECTION 12/21/2013 Patient Education: Patient Medication Summary Completed 12/21/2013 Appointment: Jessenia Francis WPtel: [address] [place] [address] ACUTE ILLNESS 10/17/2013 Patient Education: Patient Medication Summary Completed 10/17/2013 Visit Plan: Discussed that likely lumbar etiology for leg weakness Will change amlodopine to low dose dyazide and see if helps legs and inner ear 09/24/2013 Appointment: Vikki Guaman WPtel: [address] [place], [place] [phone] [place] FOLLOW UP 09/24/2013 Patient Education: Patient Medication Summary Completed 09/24/2013 Visit Plan: Ceftin and continue claritin /flonase Decrease amlodopine to 2.5mg q HS until fwup with Card due to weakness 05/31/2013 Appointment: Vikki Guaman WPtel: [address] [place], [place] [address] US ACUTE ILLNESS 05/31/2013 Patient Education: Patient Medication Summary Completed 05/31/2013 Appointment: Vikki Guaman WPtel: [address] [place], [place] [phone] 03/28/2013 Patient Education: Patient Medication Summary Completed 03/28/2013 Appointment: Jessenia Francis WPtel: [address] [place] [address] ACUTE ILLNESS 03/26/2013 Patient Education: Patient Medication Summary Completed 03/26/2013 Visit Plan: Supportive care. Rest, Fluid s, Tylenol prn fever or bodyaches. Notify if worsening symptoms. Ceftin 12/19/2012 Appointment: Jessenia Francis WPtel: [address] [place] [address] ACUTE ILLNESS 12/19/2012 Patient Education: Patient Medication Summary Completed 12/19/2012 Appointment: Vikki Guaman WPtel: [address] [place] [address] BP CHECK 12/04/2012 Patient Education: Patient Medication Summary Completed 12/04/2012 Appointment: Vikki Guamantel: [address] [place] [address] ER Follow UP 11/27/2012 Patient Education: Patient Medication Summary Completed 11/27/2012 Visit Plan: Restart flonase BID Use mecl izine 25mg q HS Vestibular exercises Claritin 10mg q AM See ENT if doesn't resolve 10/04/2012 Appointment: Vikki Guaman WPtel: [address] [place] [address] ACUTE ILLNESS 10/04/2012 Patient Education: Patient Medication Summary Completed 10/04/2012 Visit Plan: Will continue to observe 07/27/2012 Appointment: Vikki Guaman WPtel: [address] [place] [address] FOLLOW UP 07/27/2012 Patient Education: Patient Medication [...] recheck. 07/14/2012 Appointment: Evelyn Santos WPtel: [address] [place] [address] ACUTE ILLNESS 07/14/2012 Patient Education: Patient Medication Summary Completed 07/14/2012 Visit Plan: Decrease caffeine intake Kristin ck Bilateral Mammogram with US of left breast 06/08/2012 Appointment: Vikki Guaman WPtel: [address] [place] [address] ACUTE ILLNESS 06/08/2012 Patient Education: Patient Medication Summary Completed 06/08/2012 Appointment: Alisia Campbell WPtel: [address] [place] [address] appt scheduled 04/06 ACUTE ILLNESS 04/10/2012 Appointment: Vikki Guaman WPtel: [address] [place], [place] [phone] LAB 02/23/2012 Patient Education: Patient Medication Summary Completed 02/23/2012 Visit Plan: Continue off carafate and se e how does Continue probiotic Add Vestibular exercises and use meclizine prn Continue Nasonex Check fasting lab including CMP, Lipids, CBC, TSH, Free T4, HbA1C 02/22/2012 Appointment: Vikki Guaman WPtel: [address] [place], [place] [phone] [place] FOLLOW UP 02/22/2012 Patient Education: Patient Medication Summary Completed 02/22/2012 Visit Plan: Continue carafate for 4more weeks at current dose then decrease to BID for 2wks then q HS 12/28/2011 Appointment: Vikki Guaman WPtel: [address] [place], [place] [phone] [place] FOLLOW UP 12/28/2011 Patient Education: Patient Medication Summary Completed 12/28/2011 Visit Plan: Continue omeprazole Add Judi fate 1gm po q AC Add daily probiotic 12/15/2011 Appointment: Vikki Guamantel: [address] [place], [place] [phone] ACUTE ILLNESS 12/15/2011 Patient Education: Patient Medication Summary Completed 12/15/2011 Appointment: Vikki Guaman WPtel: [address] [place], [place] [phone] INJECTION 12/02/2011 Patient Education: Patient Medication Summary Completed 12/02/2011 Visit Plan: Diabetic Diet Accuchecks BID alternating times Hold onglyza and Januvia for now and continue diet and exercise and weight loss and lana BS Discussed hypoglycemia and snack of peanut butter and crackers with juice or milk 09/21/2011 Appointment: Vikki Guaman WPtel: [address] [place] [address] WORK IN 09/21/2011 Patient Education: Patient Medication Summary Completed 09/21/2011 Appointment: Vikki Guaman WPtel: [address] [place], [place] [phone] [place] [address] 09/16/2011 Patient Education: Patient Medication Summary Completed 09/16/2011 Appointment: Vikki Guaman WPtel: [address] [place], [place] [phone] [facility] 09/15/2011 Patient Education: Patient Medication Summary Completed 09/15/2011 Appointment: Vikki Guaman WPtel: [address] [place], [place] [phone] ACUTE ILLNESS 09/13/2011 Patient Education: Patient Medication Summary Completed 09/13/2011 Visit Plan: Injection to Right SI joint as above Pt will call in 3 days on pain Has PT starting in 2wks. 08/16/2011 Appointment: Vikki Guaman WPtel: [phone] ACUTE ILLNESS 08/16/2011 Patient Education: Patient Medication Summary Completed 08/16/2011 Visit Plan: OMT done Start PT May need u pdated MRI if need to consider epidural Prednisone 08/03/2011 Appointment: Vikki Guamantel: [address] [place] [address] OMT 08/03/2011 Patient Education: Patient Medication Summary Completed 08/03/2011 Visit Plan: Flexeril and Vimovo OMT done Daily stretches 07/26/2011 Appointment: Vikki Guaman WPtel: [address] [place] [address] ACUTE ILLNESS 07/26/2011 Patient Education: Patient Medication Summary Completed 07/26/2011 Visit Plan: OMT done Daily stretches Roque st heat or biofreeze Right SI joint injection Call in 1week Vimovo BID 06/28/2011 Appointment: Vikki Guamantel: [address] [place] [address] ACUTE ILLNESS 06/28/2011 Patient Education: Patient Medication Summary Completed 06/28/2011 Appointment: Vikki Guamantel: [address] [place] [address] LAB 04/01/2011 Patient Education: Patient Medication Summary Completed 04/01/2011 Visit Plan: Decrease amlodopine to 1.25m g daily Schedule with Cardiology Fasting lab in AM 03/31/2011 Appointment: Vikki Guaman WPtel: [address] [place] [address] ACUTE ILLNESS 03/31/2011 Patient Education: Patient Medication Summary Completed 03/31/2011 Visit Plan: Saline nasal flushes prn. Ty lenol/Motrin prn headache. Notify if persists/symptoms worsening. Cerumen removal from ears as above 02/11/2011 Appointment: Vikki Guamantel: [address] [place] [address] ACUTE ILLNESS 02/11/2011 Patient Education: Patient Medication Summary Completed 02/11/2011 Appointment: Vikki Guaman WPtel: [address] [place], [place] [phone] [place] INJECTION 12/09/2010 Patient Education: Patient Medication Summary Completed 12/09/2010 Visit Plan: Continue vimovo for 1more we ek Increase Omeprazole to BID for 1mo then resume QD if stomach improved Vestibular exercises with meclizine q HS for next week 10/15/2010 Appointment: Vikki Guaman WPtel: [address] [place], [place] [phone] FOLLOW UP 10/15/2010 Patient Education: Patient Medication Summary Completed 10/15/2010 Appointment: Vikki Guaman WPtel: [address] [place] [address] ACUTE ILLNESS 09/29/2010 Patient Education: Patient Medication Summary Completed 09/29/2010 Appointment: Vikki Guaman WPtel: [address] [place], [place] [phone] LAB 07/06/2010 Patient Education: Patient Medication Summary Completed 07/06/2010 Visit Plan: Saline nasal flushes prn. Ty lenol/Motrin prn headache. Notify if persists/symptoms worsening. Add Veramyst Increase Omeprazole to 20mg po BID 07/02/2010 Appointment: Vikki Guaman WPtel: [address] [place], [place] [phone] ACUTE ILLNESS 07/02/2010 Patient Education: Patient Medication Summary Completed 07/02/2010 Appointment: Vikki Guaman WPtel: [address] [place], [place] [phone] FOLLOW UP 04/06/2010 Patient Education: Patient Medication Summary Completed 04/06/2010 Appointment: Vikki Guaman WPtel: [address] [place], [place] [phone] ACUTE ILLNESS 04/01/2010 Patient Education: Patient Medication Summary Completed 04/01/2010 Visit Plan: Nasocourt sample given. Pt. will notify if symptoms are worse on Tuesday. 01/22/2010 Appointment: Alisia Campbell WPtel: [address] [place], [place] [phone] ACUTE ILLNESS 01/22/2010 Patient Education: Patient Medication Summary Completed 01/22/2010 Appointment: Vikki Guaman WPtel: [address] [place], [place] [phone] [place] INJECTION 12/10/2009 Patient Education: Patient Medication Summary Completed 12/10/2009 Appointment: Vikki Guaman WPtel: [address] [place] [address] FOLLOW UP 12/02/2009 Patient Education: Patient Medication Summary Completed 12/02/2009 Patient Education: Lexapro Completed 0 12/02/2009 Visit Plan: May proceed with hiatal ryan ia repair per Card. so will contact Dr. Mariscal's office to proceed with surgery Trial of Lexapro 5mg QD plus use xanax prn 10/21/2009 Appointment: Vikki Guaman WPtel: [address] [place] [address] FOLLOW UP 10/21/2009 Patient Education: Patient Medication Summary Completed 10/21/2009 Visit Plan: B12 given Cont oral B12 and iron Fwup 1mo for B12 Proceed with hiatal hernia repair once card clearance 09/10/2009 Appointment: Vikki Guaman WPtel: [address] [place], [place] [phone] FOLLOW UP 09/10/2009 Patient Education: Patient Medication Summary Completed 09/10/2009 Appointment: Vikki Guaman WPtel: [address] [place], [place] [phone] FOLLOW UP 08/11/2009 Patient Education: Patient Medication Summary Completed 08/11/2009 Appointment: Vikki Guaman WPtel: [address] [place], [place] [phone] [place] LAB 06/10/2009 Patient Education: Patient Medication Summary Completed 06/10/2009 Visit Plan: Check fasting lab in AM--CMP ,Lipids, CBC, Vit D, TSH,FreeT4, B12 06/09/2009 Appointment: Vikki Guaman WPtel: [phone] [id number] FOLLOW UP 06/09/2009 Patient Education: Patient Medication Summary Completed 06/09/2009 Referral: Edy Cheek WPtel: #1 [facility] [id number] [place] Referral Appointment Requested Referral: Edy Cheek WPtel: #1 [id number] Referral Initiated Instructions Comment . [...]
--- OUTSIDE RECORDS SUMMARY | 2019-04-25 20:26 | XMS REPORT | CCD ---
Author Author Evelyne Guaman D.O. Organization [facility] Address [address] [place] [address] Phone Care Team Providers Care Water Resources Engineer Name Role Phone Vikki Guaman D.O. PP Unavailable CCM Unavailable Summary Purpose Interface Exchange Insurance Providers Payer name Policy type / Coverage type Covered republican ID Effective Begin Date Effective End Date WPS MEDICARE PART B [place] Medicare Part B [id number] [address] 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: [...] Instructions metoprolol tartrate 25 mg tablet RxNorm: 508185 1 Table t(s) Oral QAM and two tablets (50mg) in the evening 03/20/2019 06/18/2019 Active Flonase Allergy Relief 50 mcg/actuation nasal spray,suspensi on RxNorm: 2888163 2 [place] Nasal every night at bedtime 03/13/2019 03/13/2019 Inactive simvastatin 40 mg tablet RxNorm: 949314 1 Tablet(s) PO QD 01/22/2019 04/21/2019 Active omeprazole 40 mg capsule,delayed release RxNorm: 271902 1 Capsu le(s) Oral QD 01/10/2019 07/08/2019 Active Xanax 0.25 mg tablet RxNorm: 464090 TAKE 1 TABLET BY MOUTH TWIC E DAILY 01/02/2019 No Stop Date Active omeprazole 40 mg capsule,delayed release RxNorm: 716583 1 Capsu le(s) PO QD 12/11/2018 01/09/2019 Inactive metoprolol tartrate 25 mg tablet RxNorm: 278228 1 Tablet(s) PO BID 11/20/2018 03/19/2019 Inactive omeprazole 40 mg capsule,delayed release RxNorm: 214024 1 Capsu le(s) PO QD 11/13/2018 12/10/2018 Inactive Flonase Allergy Relief 50 mcg/actuation nasal spray,suspensi on RxNorm: 1025813 2 [place] NASAL QHS 11/07/2018 03/12/2019 Inactive simvastatin 40 mg tablet RxNorm: 915376 1 Tablet(s) PO QD 10/23/2018 01/20/2019 Inactive simvastatin 40 mg tablet RxNorm: 350911 1 Tablet(s) PO QD 07/24/2018 10/21/2018 Inactive omeprazole 40 mg capsule,delayed release RxNorm: 289742 1 Capsu le(s) PO QD 07/13/2018 11/09/2018 Inactive simvastatin 40 mg tablet RxNorm: 665023 1 Tablet(s) PO QD 06/13/2018 07/12/2018 Inactive omeprazole 40 mg capsule,delayed release RxNorm: 890218 1 Capsu le(s) PO QD 06/13/2018 07/12/2018 Inactive Bactrim DS 800 mg-160 mg tablet RxNorm: 112808 1 Tablet(s) PO BID 0 05/12/2018 05/18/2018 Inactive Bactrim DS 800 mg-160 mg tablet RxNorm: 165150 1 Tablet(s) PO BID 0 05/12/2018 05/11/2018 Inactive Macrobid 100 mg capsule RxNorm: 795469 1 Capsule(s) PO BID 05/11/1905/16/2018 Inactive metoprolol tartrate 25 mg tablet RxNorm: 002011 1 Tablet(s) PO BID 05/10/2018 11/05/2018 Inactive Xanax 0.25 mg tablet RxNorm: 756715 TAKE 1 TABLET BY MOUTH TWIC E DAILY 02/16/2018 01/01/2019 Inactive Xanax 0.25 mg tablet RxNorm: 354206 1 Tablet(s) PO BID 02/14/2018 Inactive Protonix 40 mg tablet,delayed release RxNorm: 244818 1 Tablet(s) PO BID for stomach--replaces omeprazole 01/10/2018 05/09/2018 Inactive Carafate 1 gram tablet RxNorm: 556411 1 Tablet(s) PO AC & HS 201705/09/2018 Inactive Xanax 0.25 mg tablet RxNorm: 488090 1 Tablet(s) PO BID 01/03/201812/2017 Inactive Bactrim DS 800 mg-160 mg tablet RxNorm: 867020 1 Tablet(s) PO BID 1 12/12/2017 Inactive Bactrim DS 800 mg-160 mg tablet RxNorm: 542998 1 Tablet(s) PO BID 1 12/07/2017 Inactive Carafate 1 gram tablet RxNorm: 640268 1 Tablet(s) PO AC & HS 201712/21/2017 Inactive Protonix 40 mg tablet,delayed release RxNorm: 921680 1 Tablet(s) PO BID for stomach--replaces omeprazole 11/22/2017 01/09/2018 Inactive Protonix 40 mg tablet,delayed release RxNorm: 594734 1 Tablet(s) PO BID for stomach--replaces omeprazole 10/20/2017 11/21/2017 Inactive fluticasone 50 mcg/actuation nasal spray,suspension RxNorm: 4735100 2 [place] NASAL QD to each nostril 07/07/2017 08/13/2018 Inactive Nasonex 50 mcg/actuation [place] RxNorm: 9535914 2 [place] NASAL 201707/07/2017 Inactive omeprazole 40 mg capsule,delayed release RxNorm: 332591 1 Capsu le(s) PO QD 04/18/2017 10/19/2017 Inactive simvastatin 40 mg tablet RxNorm: 432298 1 Tablet(s) PO QD TAKE 1 TABLET EVERY DAY 04/18/2017 04/12/2018 Inactive metoprolol tartrate 25 mg tablet RxNorm: 034030 1/2 Tablet(s) PO QD 04/18/2017 01/09/2018 Inactive simvastatin 40 mg tablet RxNorm: 032687 Tablet(s) TAKE 1 TABLET EVERY DAY 10/27/2016 04/17/2017 Inactive metoprolol tartrate 25 mg tablet RxNorm: 945859 1/2 Tablet(s) PO QD 09/20/2016 03/18/2017 Inactive Flonase 50 mcg/actuation nasal spray,suspension RxNorm: 1797 933 2 [place] NASAL BID 09/20/2016 04/17/2017 Inactive omeprazole 40 mg capsule,delayed release RxNorm: 596676 1 Capsu le(s) PO QD 09/08/2016 04/17/2017 Inactive metoprolol tartrate 25 mg tablet RxNorm: 464157 1/2 Tablet(s) PO QD 06/14/2016 09/19/2016 Inactive ciprofloxacin 0.2 % ear drops in a dropperette RxNorm: 78372 6 4 Drop(s) OTIC TID for 1 week 02/06/2016 05/11/2016 Inactive cefdinir 300 mg capsule RxNorm: 784421 2 Capsule(s) PO QD 02/06/2016 02/15/2016 Inactive omeprazole 40 mg capsule,delayed release RxNorm: 517090 TAKE 1 CAPSULE EVERY DAY 11/06/2015 09/08/2016 Inactive simvastatin 40 mg tablet RxNorm: 904691 TAKE 1 TABLET EVERY DAY 05/201510/27/2016 Inactive Flonase 50 mcg/actuation nasal spray,suspension RxNorm: 1797 933 2 [place] NASAL BID 02/19/2015 09/19/2016 Inactive cefuroxime axetil 250 mg tablet RxNorm: 308952 1 Tablet(s) PO BID 0 11/21/2014 11/20/2014 Inactive cefuroxime axetil 250 mg tablet RxNorm: 229753 1 Tablet(s) PO BID 0 11/21/2014 11/27/2014 Inactive omeprazole 40 mg capsule,delayed release RxNorm: 510526 1 Capsu le(s) PO QD 10/09/2014 01/05/2015 Inactive meloxicam 7.5 mg tablet RxNorm: 263500 1 Tablet(s) PO QD 07/11/2014 0 08/09/2014 Inactive loratadine 10 mg tablet RxNorm: 749872 1 Tablet(s) PO QAM for a llergies 10/17/2013 08/13/2018 Inactive Flonase 50 mcg/actuation nasal spray,suspension RxNorm: 8963 23 2 [place] NASAL BID 10/17/2013 02/18/2015 Inactive prednisone 20 mg tablet RxNorm: 857608 2 Tablet(s) PO BID 10/17/2013 10/21/2013 Inactive Dyazide 37.5 mg-25 mg capsule RxNorm: 001370 1 Capsule(s) PO QAM 10/16/2013 Inactive Ceftin 500 mg tablet RxNorm: 290716 1 Tablet(s) PO BID 05/31/201307/2013 Inactive Ceftin 500 mg tablet RxNorm: 299577 1 Tablet(s) PO BID 03/26/2013 Inactive simvastatin 40 mg tablet RxNorm: 012431 Tablet(s) PO TA KE ONE TABLET BY MOUTH EVERY DAY 03/26/2013 10/07/2015 Inactive metoprolol tartrate 25 mg tablet RxNorm: 205883 Tablet( s) PO TAKE ONE-HALF TABLET BY MOUTH EVERY DAY 03/26/2013 11/12/2014 Inactive Ceftin 500 mg tablet RxNorm: 438847 1 Tablet(s) PO BID 12/19/2012 Inactive loratadine 10 mg tablet RxNorm: 745895 1 Tablet(s) PO QAM for a llergies 10/04/2012 12/02/2012 Inactive omeprazole 20 mg capsule,delayed release RxNorm: 428706 Capsule(s) PO TAKE ONE CAPSULE BY MOUTH TWICE DAILY 08/09/2012 10/08/2014 Inactive omeprazole 20 mg capsule,delayed release RxNorm: 803414 1 Capsu le(s) PO BID 08/09/2012 05/09/2018 Inactive Augmentin 875 mg-125 mg tablet RxNorm: 497212 1 Tablet(s) PO Q12H 0 07/14/2012 07/23/2012 Inactive Floxin Otic Drops 1 bottle Drops RxNorm: 5 Drop(s) OTIC BID 07/20/2012 Inactive metoprolol tartrate 25 mg tablet RxNorm: 586155 Tablet( s) PO TAKE ONE-HALF TABLET BY MOUTH EVERY DAY 04/11/2012 03/25/2013 Inactive simvastatin 40 mg tablet RxNorm: 453255 Tablet(s) PO TA KE ONE TABLET BY MOUTH EVERY DAY 04/11/2012 03/25/2013 Inactive lancets RxNorm: Misc Miscellaneous USE ONE TO CH JEFFERY GLUCOSE EVERY DAY 04/04/2012 05/09/2018 Inactive Carafate 1 gram tablet RxNorm: 955996 1 Tablet(s) PO AC & HS 201111/12/2014 Inactive Flagyl 500 mg tablet RxNorm: 386446 1 Tablet(s) PO TID 12/15/2011 Inactive Carafate 1 gram tablet RxNorm: 693101 1 Tablet(s) PO AC & HS 201102/12/2012 Inactive One Touch Test strips RxNorm: Miscellaneous QD 09/21/2011 05/09/2018 Inactive one touch ultra mini test strips Protonix 40 mg Tab RxNorm: 670642 1 Tablet(s) PO QD 09/13/20112011 Inactive Protonix 40 mg Tab RxNorm: 072404 1 Tablet(s) PO QD 09/13/20112011 Inactive prednisone 20 mg Tab RxNorm: 002846 1 Tablet(s) PO BID 08/03/201106/2011 Inactive Flexeril 5 mg Tab RxNorm: 554113 1 Tablet(s) PO QHS for spasm 07/2508/24/2011 Inactive Flexeril 5 mg Tab RxNorm: 365334 1 Tablet(s) PO QHS for spasm 06/2707/25/2011 Inactive amlodipine 2.5 mg Tab RxNorm: 805620 1/2 Tablet(s) PO QD replac es 5mg dose 03/31/2011 06/27/2011 Inactive simvastatin 40 mg tablet RxNorm: 632945 1 Tablet(s) PO QD 03/31/2011 03/24/2012 Inactive metoprolol tartrate 25 mg tablet RxNorm: 715257 1/2 Tablet(s) PO QD 03/31/2011 03/24/2012 Inactive omeprazole 20 mg capsule,delayed release RxNorm: 123110 1 Capsu le(s) PO BID 03/31/2011 09/12/2011 Inactive cefdinir 300 mg Cap RxNorm: 154613 2 Capsule(s) PO QD 02/11/201102/04 Inactive simvastatin 40 mg Tab RxNorm: 177217 1 Tablet(s) PO QD 02/01/2011 Inactive metoprolol tartrate 25 mg Tab RxNorm: 694211 1/2 Tablet(s) PO QD 03/30/2011 Inactive metoprolol tartrate 25 mg Tab RxNorm: 937879 1/2 Tablet(s) PO QD 12/28/2010 Inactive meclizine 25 mg Tab RxNorm: 6626282 1 Tablet(s) PO QHS 10/15/201011/2010 Inactive for dizziness Ceftin 500 mg Tab RxNorm: 128645 1 Tablet(s) PO BID 07/02/20102010 Inactive omeprazole 20 mg Cap, Delayed Release RxNorm: 057414 1 Capsule( s) PO BID 07/02/2010 12/28/2010 Inactive simvastatin 40 mg Tab RxNorm: 691564 1 Tablet(s) PO QD 06/30/201007/2018 Inactive simvastatin 40 mg Tab RxNorm: 939759 1 Tablet(s) PO QD 06/30/2010 Inactive simvastatin 40 mg Tab RxNorm: 929301 1 Tablet(s) PO QD 02/25/2010 Inactive Tessalon Perles 100 mg Cap RxNorm: 639651 1 Capsule(s) PO Q6-8H 01/28/2010 Inactive cefdinir 300 mg Cap RxNorm: 215135 1 Capsule(s) PO BID 01/22/2010 Inactive Lexapro 10 mg Tab RxNorm: 210654 1 Tablet(s) PO QD 12/02/2009 010 Inactive Cipro 250 mg Tab RxNorm: 441360 1 Tablet(s) PO BID 12/02/2009 010 Inactive Wellbutrin XL 150 mg 24 hr Tab RxNorm: 518492 1 Tablet(s) PO QAM 08/07/2009 Inactive Fish Oil 1,000 mg Cap RxNorm: 1 Capsule(s) PO QD No Start Date Active Tylenol Extra Strength 500 mg tablet RxNorm: 071860 1/2 Tablet( s) PO as needed No Start Date Active nitroglycerin 0.4 mg sublingual tablet RxNorm: 046703 Tablet(s) SL as needed No Start Date Active Calcium with Vitamin D 600 mg (1,500 mg)-400 unit tablet RxN orm: 445746 1 Tablet(s) PO QD No Start Date Active Multivitamin & Mineral Formula Tab RxNorm: 1 Tablet(s) PO QD No St art Date Active vitamin B complex capsule RxNorm: 1 Capsule(s) PO QD No Start Date Active Aspirin 81 mg Tab RxNorm: 159064 1 Tablet(s) PO QD No Start Date Active isosorbide mononitrate ER 30 mg tablet,extended release 24 h r RxNorm: 838448 1 Tablet(s) PO QHS No Start Date Active Vitamin D 1,000 unit Cap RxNorm: 084641 1 Capsule(s) PO QD No Start D ate Active Co Q-10 oral RxNorm: 39852 oral No Start Date Active metoprolol tartrate 25 mg Tab RxNorm: 892194 1/2 Tablet(s) PO QD No Start Date 12/27/2010 Inactive Nasonex 50 mcg/actuation [place] RxNorm: 6830435 2 [place] NASAL No Sta rt Date 07/06/2017 Inactive Vitamin B12 1000mcg Tablet RxNorm: 1 Tablet(s) PO QD No Start Date 11/12/2014 Inactive amlodipine 5 mg Tab RxNorm: 447693 1 Tablet(s) PO QD No Start Date Inactive simvastatin 40 mg tablet RxNorm: 055414 1 Tablet(s) PO QD No Start Date 06/12/2018 Inactive omeprazole 20 mg capsule,delayed release RxNorm: 388871 1 Capsu le(s) PO BID No Start Date 08/08/2012 Inactive omeprazole 40 mg capsule,delayed release RxNorm: 517299 1 Capsu le(s) PO QD No Start Date 06/12/2018 Inactive Nexium 40 mg Cap RxNorm: 023310 1 Capsule(s) PO QD No Start Date 01/05 Inactive Stool Softener 100 mg Tab RxNorm: 5787210 2 Tablet(s) PO BID No Sta rt Date 03/30/2011 Inactive Calcium with Vitamin D 600 mg (1,500 mg)-400 unit Tab RxNorm : 824755 1 Tablet(s) PO QD No Start Date 11/12/2014 Inactive iron 325 mg (65 mg iron) Tab RxNorm: 415378 1 Tablet(s) PO QD No St art Date 11/12/2014 Inactive Flonase 50 mcg/actuation Nasal [place] RxNorm: 752796 2 [place] DEMOND AL BID No Start Date 10/16/2013 Inactive fluticasone 50 mcg/actuation nasal spray,suspension RxNorm: 3781371 2 [place] NASAL QD to each nostril No Start Date 07/06/2017 Inactive Nasonex 50 mcg/actuation [place] RxNorm: 7395673 2 [place] NASAL QD No Start Date 07/06/2017 Inactive hydralazine 50 mg tablet RxNorm: 738104 1 Tablet(s) PO as needed for BP over 160/90 No Start Date 11/21/2017 Inactive Vimovo 500 mg-20 mg 12 hr Tab RxNorm: 573146 1 Tablet(s) PO BID No Start Date 02/10/2011 Inactive Tylenol PM 25 mg-500 mg/15 mL Oral Soln RxNorm: 0158573 1 PO QPM No Start Date 11/12/2014 Inactive Iron (Ferrous Sulfate) Oral RxNorm: Oral No Start Date 03/30/19 12 Inactive Reglan 10 mg Tab RxNorm: 269820 1 Tablet(s) PO TID before meals No Start Date 02/10/2011 Inactive Xanax 1 mg Tab RxNorm: 241830 1/2 Tablet(s) PO QD No Start Date 11/21 Inactive amlodipine 10 mg tablet RxNorm: 898479 1 Tablet(s) PO QD No Start D ate 09/23/2013 Inactive Iron (dried) Oral RxNorm: Oral No Start Date 03/30/2011 Inactiv e metoprolol tartrate 50 mg tablet RxNorm: 006267 1 Tablet(s) PO BID No Start Date 02/13/2018 Inactive Xanax 0.25 mg tablet RxNorm: 678750 1 Tablet(s) PO BID No Start Date 01/02/2018 Inactive lancets RxNorm: Miscellaneous check blood sugar at least once daily No Start Date 04/03/2012 Inactive simvastatin 40 mg Tab RxNorm: 513425 1 Tablet(s) PO QD No Start Date 02/24/2010 Inactive isosorbide mononitrate ER 30 mg tablet,extended release 24 h r RxNorm: 052099 1 Tablet(s) PO QHS No Start Date 08/13/2018 Inactive amlodipine 2.5 mg tablet RxNorm: 860884 1 Tablet(s) PO QD No Start Date 09/23/2013 Inactive sucralfate 1 gram tablet RxNorm: 192719 1 Tablet(s) PO QID No Start Date 05/09/2018 Inactive Fish Oil Oral RxNorm: Oral No Start Date 03/31/2011 Inactive Multiple Vitamin Oral RxNorm: Oral No Start Date 03/31/2011 Franny ctive metoprolol tartrate 25 mg tablet RxNorm: 365479 1/2 Tablet(s) P O QD No Start Date 06/13/2016 Inactive metoprolol tartrate 50 mg tablet RxNorm: 736269 1/2 Tablet(s) P O BID No Start Date 05/09/2018 Inactive Flonase Allergy Relief 50 mcg/actuation nasal spray,suspensi on RxNorm: 7939065 2 [place] NASAL QHS No Start Date 11/06/2018 Inactive [...] Code Item Item Code Result Date S [facility] Location COMPLETE BLOOD COUNT [id number] WBC 7.1 10e9/L 03/13/19 20 Unknown COMPLETE BLOOD COUNT [id number] RBC 4.16 10e12/L 2019 Unknown COMPLETE BLOOD COUNT [id number] HEMOGLOBIN 12.4 g/dL 03/13/19 20 Unknown COMPLETE BLOOD COUNT [id number] HEMATOCRIT 39.3 % 03/13/19 20 Unknown COMPLETE BLOOD COUNT [id number] MCV 94.5 fL 0 Unknown COMPLETE BLOOD COUNT [id number] MCH 29.8 pg 0 Unknown COMPLETE BLOOD COUNT [id number] MCHC 31.6 g/dL 0 Unknown COMPLETE BLOOD COUNT [id number] PLATELET COUNT 161 10e9/L 09/2019 Unknown COMPLETE BLOOD COUNT [id number] Mean Plt Volume 10.8 fL 09/2019 Unknown COMPLETE BLOOD COUNT [id number] Neut Auto 38.7 % 0 Unknown COMPLETE BLOOD COUNT [id number] Lymph Auto 48.0 % 03/13/19 20 Unknown COMPLETE BLOOD COUNT [id number] [place] Auto 9.5 % 0 Unknown COMPLETE BLOOD COUNT [id number] RDW 13.5 % 0 Unknown COMPLETE BLOOD COUNT [id number] Eos Auto 3.2 % 0 Unknown COMPLETE BLOOD COUNT [id number] Baso Auto 0.6 % 0 Unknown COMPLETE BLOOD COUNT [id number] Neutrophil Abs 2.75 10e9/L Unknown COMPLETE BLOOD COUNT [id number] Lymphocyte Abs 3.41 10e9/L Unknown COMPLETE BLOOD COUNT [id number] Monocyte Abs 0.67 10e9/L 09/2019 Unknown COMPLETE BLOOD COUNT [id number] Eosinophil Abs 0.23 10e9/L Unknown COMPLETE BLOOD COUNT [id number] RDW-SD 44.7 fL 0 Unknown COMPLETE BLOOD COUNT [id number] Basophil Abs 0.04 10e9/L 09/2019 Unknown THYROID STIMULATING HORMONE 68963 TSH 1.677 uIU/mL 03/13/2019 Unknown COMPREHENSIVE METABOLIC 68883 AST 19 U/L 2019 Unknown COMPREHENSIVE METABOLIC 54669 ALT 12 U/L 2019 Unknown COMPREHENSIVE METABOLIC 71253 BUN 17 mg/dL 2019 Unknown COMPREHENSIVE METABOLIC 50181 ALBUMIN 4.2 g/dL 2019 Unknown COMPREHENSIVE METABOLIC 39383 CHLORIDE 103 mmol/L 03/13 Unknown COMPREHENSIVE METABOLIC 00931 Bili Total 0.2 mg/dL 03/13 Unknown COMPREHENSIVE METABOLIC 08685 ALK PHOS 61 U/L 2019 Unknown COMPREHENSIVE METABOLIC 78512 SODIUM 140 mmol/L 03/13 Unknown COMPREHENSIVE METABOLIC 73717 CREATININE 0.95 mg/dL 09/2019 Unknown COMPREHENSIVE METABOLIC 07971 CALCIUM 9.4 mg/dL 2019 Unknown COMPREHENSIVE METABOLIC 50123 POTASSIUM 4.2 mmol/L 03/13 Unknown COMPREHENSIVE METABOLIC 86230 Total Protein 6.5 g/dL Unknown COMPREHENSIVE METABOLIC 21600 Glucose 103 mg/dL 2019 Unknown COMPREHENSIVE METABOLIC 80408 Bicarbonate 26 mmol/L 09/2019 Unknown COMPREHENSIVE METABOLIC 77939 AGAP 11 mmol/L 2019 Unknown GFR CALC [id number] GFR Non Afr Amr 57 mL/min 03/13/2019 Unk nown GFR CALC [id number] GFR Afr Amr >60 mL/min 03/13/2019 Unknow n GFR CALC [id number] GFR Non Afr Amr 52 mL/min 12/15/2018 Unk nown GFR CALC 1573201 GFR Afr Amr >60 mL/min 12/15/2018 Unknow n COMPREHENSIVE METABOLIC 77878 AST 17 U/L 2018 Unknown COMPREHENSIVE METABOLIC 36794 ALT 11 U/L 2018 Unknown COMPREHENSIVE METABOLIC 05545 BUN 17 mg/dL 2018 Unknown COMPREHENSIVE METABOLIC 53684 ALBUMIN 3.9 g/dL 2018 Unknown COMPREHENSIVE METABOLIC 98944 CHLORIDE 108 mmol/L 12/15 Unknown COMPREHENSIVE METABOLIC 74987 Bili Total 0.5 mg/dL 12/15 Unknown COMPREHENSIVE METABOLIC 90754 ALK PHOS 72 U/L 2018 Unknown COMPREHENSIVE METABOLIC 65066 SODIUM 142 mmol/L 12/15 Unknown COMPREHENSIVE METABOLIC 51717 CREATININE 1.02 mg/dL 12/05 Unknown COMPREHENSIVE METABOLIC 79056 CALCIUM 9.3 mg/dL 2018 Unknown COMPREHENSIVE METABOLIC 88566 POTASSIUM 4.0 mmol/L 12/15 Unknown COMPREHENSIVE METABOLIC 80707 Total Protein 6.2 g/dL Unknown COMPREHENSIVE METABOLIC 20693 Glucose 93 mg/dL 2018 Unknown COMPREHENSIVE METABOLIC 50462 Bicarbonate 27 mmol/L 12/05 Unknown COMPREHENSIVE METABOLIC 18297 AGAP 7 mmol/L 2018 Unknown GFR CALC [id number] GFR Non Afr Amr 48 mL/min 08/14/2018 Unk nown GFR CALC [id number] GFR Afr Amr 59 mL/min 08/14/2018 Unknown THYROID STIMULATING HORMONE 56017 TSH 1.936 uIU/mL 08/14/2018 Unknown COMPREHENSIVE METABOLIC 31571 AST 18 U/L 2018 Unknown COMPREHENSIVE METABOLIC 61083 ALT 11 U/L 2018 Unknown COMPREHENSIVE METABOLIC 54371 BUN 18 mg/dL 2018 Unknown COMPREHENSIVE METABOLIC 08123 ALBUMIN 4.2 g/dL 2018 Unknown COMPREHENSIVE METABOLIC 14655 CHLORIDE 109 mmol/L 08/14 Unknown COMPREHENSIVE METABOLIC 53614 Bili Total 0.4 mg/dL 08/14 Unknown COMPREHENSIVE METABOLIC 18920 ALK PHOS 64 U/L 2018 Unknown COMPREHENSIVE METABOLIC 08750 SODIUM 142 mmol/L 08/14 Unknown COMPREHENSIVE METABOLIC 25988 CREATININE 1.09 mg/dL 08/05 Unknown COMPREHENSIVE METABOLIC 96511 CALCIUM 9.3 mg/dL 2018 Unknown COMPREHENSIVE METABOLIC 35504 POTASSIUM 4.7 mmol/L 08/14 Unknown COMPREHENSIVE METABOLIC 14330 Total Protein 6.3 g/dL Unknown COMPREHENSIVE METABOLIC 59984 Glucose 84 mg/dL 2018 Unknown COMPREHENSIVE METABOLIC 16685 Bicarbonate 25 mmol/L 08/05 Unknown COMPREHENSIVE METABOLIC 57145 AGAP 8 mmol/L 2018 Unknown COMPLETE BLOOD COUNT [id number] WBC 7.8 10e9/L 08/15/19 19 Unknown COMPLETE BLOOD COUNT [id number] RBC 4.04 10e12/L 2018 Unknown COMPLETE BLOOD COUNT [id number] HEMOGLOBIN 12.2 g/dL 08/15/19 19 Unknown COMPLETE BLOOD COUNT [id number] HEMATOCRIT 38.6 % 08/15/19 19 Unknown COMPLETE BLOOD COUNT [id number] MCV 95.5 fL 9 Unknown COMPLETE BLOOD COUNT [id number] MCH 30.2 pg 9 Unknown COMPLETE BLOOD COUNT [id number] MCHC 31.6 g/dL 9 Unknown COMPLETE BLOOD COUNT [id number] PLATELET COUNT 215 10e9/L 12/2018 Unknown COMPLETE BLOOD COUNT [id number] Mean Plt Volume 11.2 fL 12/2018 Unknown COMPLETE BLOOD COUNT [id number] Neut Auto 45.7 % 9 Unknown COMPLETE BLOOD COUNT [id number] Lymph Auto 42.1 % 08/15/19 19 Unknown COMPLETE BLOOD COUNT [id number] [place] Auto 9.2 % 9 Unknown COMPLETE BLOOD COUNT [id number] RDW 13.4 % 9 Unknown COMPLETE BLOOD COUNT 1451615 Eos Auto 2.7 % 9 Unknown COMPLETE BLOOD COUNT [id number] Baso Auto 0.3 % 9 Unknown COMPLETE BLOOD COUNT [id number] Neutrophil Abs 3.56 10e9/L Unknown COMPLETE BLOOD COUNT [id number] Lymphocyte Abs 3.28 10e9/L Unknown COMPLETE BLOOD COUNT [id number] Monocyte Abs 0.72 10e9/L 08/05 Unknown COMPLETE BLOOD COUNT [id number] Eosinophil Abs 0.21 10e9/L Unknown COMPLETE BLOOD COUNT [id number] RDW-SD 44.9 fL 9 Unknown COMPLETE BLOOD COUNT [id number] Basophil Abs 0.02 10e9/L 08/05 Unknown COMPLETE BLOOD COUNT [id number] WBC 5.2 10e9/L 12/01/19 18 Unknown COMPLETE BLOOD COUNT [id number] RBC 4.21 10e12/L 2017 Unknown COMPLETE BLOOD COUNT [id number] HEMOGLOBIN 12.8 g/dL 12/01/19 18 Unknown COMPLETE BLOOD COUNT [id number] HEMATOCRIT 39.0 % 12/01/19 18 Unknown COMPLETE BLOOD COUNT [id number] MCV 92.6 fL 8 Unknown COMPLETE BLOOD COUNT [id number] MCH 30.4 pg 8 Unknown COMPLETE BLOOD COUNT [id number] MCHC 32.8 g/dL 8 Unknown COMPLETE BLOOD COUNT [id number] PLATELET COUNT 202 10e9/L Unknown COMPLETE BLOOD COUNT [id number] Mean Plt Volume 10.7 fL Unknown COMPLETE BLOOD COUNT [id number] Neut Auto 40.9 % 8 Unknown COMPLETE BLOOD COUNT [id number] Lymph Auto 46.3 % 12/01/19 18 Unknown COMPLETE BLOOD COUNT [id number] [place] Auto 9.3 % 8 Unknown COMPLETE BLOOD COUNT [id number] RDW 13.7 % 8 Unknown COMPLETE BLOOD COUNT [id number] Eos Auto 2.9 % 8 Unknown COMPLETE BLOOD COUNT [id number] Baso Auto 0.6 % 8 Unknown COMPLETE BLOOD COUNT [id number] Neutrophil Abs 2.13 10e9/L Unknown COMPLETE BLOOD COUNT [id number] Lymphocyte Abs 2.41 10e9/L Unknown COMPLETE BLOOD COUNT [id number] Monocyte Abs 0.48 10e9/L 11/06 Unknown COMPLETE BLOOD COUNT [id number] Eosinophil Abs 0.15 10e9/L Unknown COMPLETE BLOOD COUNT [id number] RDW-SD 45.2 fL 8 Unknown COMPLETE BLOOD COUNT [id number] Basophil Abs 0.03 10e9/L 11/06 [place] [address] Glucose 118 mg/dL 11/30 [place] [address] CREATININE 1.01 mg/dL [place] [address] BUN 14 mg/dL 11/30 [place] [address] SODIUM 141 mmol/L 11/06 [place] [address] POTASSIUM 4.0 mmol/L 11/06 [place] [address] CHLORIDE 108 mmol/L 11/06 [place] [address] Bicarbonate 25 mmol/L [place] [address] AGAP 8 mmol/L 11/30 [place] [address] CALCIUM 9.6 mg/dL 11/30 Unknown FREE T4 91865 T4 Free 1.23 ng/dL 11/30/2017 Unknown GFR CALC [id number] GFR Non Afr Amr 53 mL/min 11/30/2017 Unk nown GFR CALC 9448149 GFR Afr Amr >60 mL/min 11/30/2017 Unknow n THYROID STIMULATING HORMONE 60371 TSH 2.124 uIU/mL 11/30/2017 Unknown LIPID GROUP 25466 Cholesterol 152 mg/dL 09/28/2017 Unkno wn LIPID GROUP 40293 Triglyceride 151 mg/dL 09/28/2017 Unkn own LIPID GROUP 49755 HDL CHOLESTEROL 47 mg/dL 09/28/2017 U nknown LIPID GROUP 62799 Chol/HDL Ratio 3.23 ratio 09/28/2017 U nknown LIPID GROUP 24448 NON-HDL Chol 105 mg/dL 09/28/2017 Unkn own LIPID GROUP 16319 LDL Cholesterol 75 mg/dL 09/28/2017 U nknown ASSAY OF TROPONIN QUANT 69408 Troponin-I <0.30 ng/mL Unknown COMPREHENSIVE METABOLIC 79117 AST 20 U/L 2017 Unknown COMPREHENSIVE METABOLIC 48565 ALT 14 U/L 2017 Unknown COMPREHENSIVE METABOLIC 40403 BUN 19 mg/dL 2017 Unknown COMPREHENSIVE METABOLIC 39593 ALBUMIN 4.2 g/dL 2017 Unknown COMPREHENSIVE METABOLIC 49682 CHLORIDE 102 mmol/L 09/27 Unknown COMPREHENSIVE METABOLIC 18699 Bili Total 0.4 mg/dL 09/27 Unknown COMPREHENSIVE METABOLIC 90077 ALK PHOS 66 U/L 2017 Unknown COMPREHENSIVE METABOLIC 74211 SODIUM 135 mmol/L 09/27 Unknown COMPREHENSIVE METABOLIC 22078 CREATININE 1.01 mg/dL 09/05 Unknown COMPREHENSIVE METABOLIC 86428 CALCIUM 9.3 mg/dL 2017 Unknown COMPREHENSIVE METABOLIC 91899 POTASSIUM 4.8 mmol/L 09/27 Unknown COMPREHENSIVE METABOLIC 12195 Total Protein 7.0 g/dL Unknown COMPREHENSIVE METABOLIC 19998 Glucose 91 mg/dL 2017 Unknown COMPREHENSIVE METABOLIC 77275 Bicarbonate 23 mmol/L 09/05 Unknown COMPREHENSIVE METABOLIC 85974 AGAP 10 mmol/L 2017 Unknown COMPLETE BLOOD COUNT [id number] WBC 7.5 10e9/L 09/28/19 18 Unknown COMPLETE BLOOD COUNT [id number] RBC 4.13 10e12/L 2017 Unknown COMPLETE BLOOD COUNT [id number] HEMOGLOBIN 12.6 g/dL 09/28/19 18 Unknown COMPLETE BLOOD COUNT [id number] HEMATOCRIT 38.4 % 09/28/19 18 Unknown COMPLETE BLOOD COUNT [id number] MCV 93.0 fL 8 Unknown COMPLETE BLOOD COUNT [id number] MCH 30.5 pg 8 Unknown COMPLETE BLOOD COUNT [id number] MCHC 32.8 g/dL 8 Unknown COMPLETE BLOOD COUNT [id number] PLATELET COUNT 204 10e9/L Unknown COMPLETE BLOOD COUNT [id number] Mean Plt Volume 10.9 fL Unknown COMPLETE BLOOD COUNT [id number] Neut Auto 43.1 % 8 Unknown COMPLETE BLOOD COUNT [id number] Lymph Auto 45.0 % 09/28/19 18 Unknown COMPLETE BLOOD COUNT 0449294 [place] Auto 9.2 % 8 Unknown COMPLETE BLOOD COUNT 4497403 RDW 13.4 % 8 Unknown COMPLETE BLOOD COUNT 2048787 Eos Auto 2.3 % 8 Unknown COMPLETE BLOOD COUNT [id number] Baso Auto 0.4 % 8 Unknown COMPLETE BLOOD COUNT 1903288 Neutrophil Abs 3.23 10e9/L Unknown COMPLETE BLOOD COUNT 3995131 Lymphocyte Abs 3.38 10e9/L Unknown COMPLETE BLOOD COUNT [id number] Monocyte Abs 0.69 10e9/L 09/05 Unknown COMPLETE BLOOD COUNT [id number] Eosinophil Abs 0.17 10e9/L Unknown COMPLETE BLOOD COUNT 3484456 RDW-SD 44.4 fL 8 Unknown COMPLETE BLOOD COUNT [id number] Basophil Abs 0.03 10e9/L 09/05 Unknown GFR CALC 1668014 GFR Non Afr Amr 53 mL/min 09/27/2017 Unk nown GFR CALC 4384843 GFR Afr Amr >60 mL/min 09/27/2017 Unknow n GLYCOSYLATED HEMOGLOBIN TEST 83779 Hgb A1c 38002-8 5.4 % 0 09/27/2017 Unknown MEAN GLUC 4834565 Calc Mean Gluc 108 mg/dL 09/27/2017 Unkn own MEAN GLUC 4940552 Calc Mean Gluc 114 mg/dL 11/01/2016 Unkn own LIPID GROUP 57585 Cholesterol 146 mg/dL 11/01/2016 Unkno wn LIPID GROUP 60577 Triglyceride 119 mg/dL 11/01/2016 Unkn own LIPID GROUP 19756 HDL CHOLESTEROL 47 mg/dL 11/01/2016 U nknown LIPID GROUP 12001 Chol/HDL Ratio 3.11 ratio 11/01/2016 U nknown LIPID GROUP 79147 NON-HDL Chol 99 mg/dL 11/01/2016 Unkn own LIPID GROUP 56151 LDL Cholesterol 75 mg/dL 11/01/2016 U nknown GLYCOSYLATED HEMOGLOBIN TEST 57237 Hgb A1c 84639-0 5.6 % 0 11/01/2016 Unknown COMPREHENSIVE METABOLIC 73293 AST 22 U/L 2016 Unknown COMPREHENSIVE METABOLIC 86686 ALT 12 U/L 2016 Unknown COMPREHENSIVE METABOLIC 90296 BUN 17 mg/dL 2016 Unknown COMPREHENSIVE METABOLIC 02531 ALBUMIN 4.0 g/dL 2016 Unknown COMPREHENSIVE METABOLIC 91736 CHLORIDE 110 mmol/L 11/01 Unknown COMPREHENSIVE METABOLIC 14335 Bili Total 0.4 mg/dL 11/01 Unknown COMPREHENSIVE METABOLIC 06060 ALK PHOS 63 U/L 2016 Unknown COMPREHENSIVE METABOLIC 40129 SODIUM 140 mmol/L 11/01 Unknown COMPREHENSIVE METABOLIC 48337 CREATININE 1.05 mg/dL 10/06 Unknown COMPREHENSIVE METABOLIC 88149 CALCIUM 9.2 mg/dL 2016 Unknown COMPREHENSIVE METABOLIC 07595 POTASSIUM 4.2 mmol/L 11/01 Unknown COMPREHENSIVE METABOLIC 71331 Total Protein 6.2 g/dL Unknown COMPREHENSIVE METABOLIC 69542 Glucose 87 mg/dL 2016 Unknown COMPREHENSIVE METABOLIC 64995 Bicarbonate 24 mmol/L 10/06 Unknown COMPREHENSIVE METABOLIC 96920 AGAP 6 mmol/L 2016 Unknown GFR CALC 9041336 GFR Non Afr Amr 51 mL/min 11/01/2016 Unk nown GFR CALC 4420162 GFR Afr Amr >60 mL/min 11/01/2016 Unknow n COMPLETE BLOOD COUNT 1064841 WBC 6.7 10e9/L 11/02/19 17 Unknown COMPLETE BLOOD COUNT 8018286 RBC 4.04 10e12/L 2016 Unknown COMPLETE BLOOD COUNT 0799721 HEMOGLOBIN 12.1 g/dL 11/02/19 17 Unknown COMPLETE BLOOD COUNT 3226086 HEMATOCRIT 38.0 % 11/02/19 17 Unknown COMPLETE BLOOD COUNT 1649878 MCV 94.1 fL 7 Unknown COMPLETE BLOOD COUNT 9757346 MCH 30.0 pg 7 Unknown COMPLETE BLOOD COUNT 2116137 MCHC 31.8 g/dL 7 Unknown COMPLETE BLOOD COUNT 4376059 PLATELET COUNT 206 10e9/L Unknown COMPLETE BLOOD COUNT 3329914 Mean Plt Volume 11.3 fL Unknown COMPLETE BLOOD COUNT 1734751 Neut Auto 35.8 % 7 Unknown COMPLETE BLOOD COUNT 4963250 Lymph Auto 51.6 % 11/02/19 17 Unknown COMPLETE BLOOD COUNT 6657626 [place] Auto 8.8 % 7 Unknown COMPLETE BLOOD COUNT 2670290 RDW 13.5 % 7 Unknown COMPLETE BLOOD COUNT 3705881 Eos Auto 3.4 % 7 Unknown COMPLETE BLOOD COUNT 6117817 Baso Auto 0.4 % 7 Unknown COMPLETE BLOOD COUNT 2447187 Neutrophil Abs 2.40 10e9/L Unknown COMPLETE BLOOD COUNT 1650009 Lymphocyte Abs 3.46 10e9/L Unknown COMPLETE BLOOD COUNT 1692725 Monocyte Abs 0.59 10e9/L 10/06 Unknown COMPLETE BLOOD COUNT 6677194 Eosinophil Abs 0.23 10e9/L Unknown COMPLETE BLOOD COUNT 4913880 RDW-SD 45.3 fL 7 Unknown COMPLETE BLOOD COUNT 2493552 Basophil Abs 0.03 10e9/L 10/06 Unknown THYROID STIMULATING HORMONE 39840 TSH 1.981 uIU/mL 11/01/2016 Unknown COMPLETE BLOOD COUNT 1588333 WBC 6.0 10e9/L 05/14/19 17 Unknown COMPLETE BLOOD COUNT 1069110 RBC 4.29 10e12/L 2016 Unknown COMPLETE BLOOD COUNT 5584141 HEMOGLOBIN 12.9 g/dL 05/14/19 17 Unknown COMPLETE BLOOD COUNT 0369711 HEMATOCRIT 38.4 % 05/14/19 17 Unknown COMPLETE BLOOD COUNT 3295608 MCV 89.5 fL 7 Unknown COMPLETE BLOOD COUNT 9275510 MCH 30.1 pg 7 Unknown COMPLETE BLOOD COUNT 9219478 MCHC 33.6 g/dL 7 Unknown COMPLETE BLOOD COUNT 5120721 PLATELET COUNT 181 10e9/L 11/2016 Unknown COMPLETE BLOOD COUNT 7728050 Mean Plt Volume 11.7 fL 11/2016 Unknown COMPLETE BLOOD COUNT 4665198 Neut Auto 36.9 % 7 Unknown COMPLETE BLOOD COUNT 3889222 Lymph Auto 50.4 % 05/14/19 17 Unknown COMPLETE BLOOD COUNT 6903150 [place] Auto 9.0 % 7 Unknown COMPLETE BLOOD COUNT 2727245 RDW 13.7 % 7 Unknown COMPLETE BLOOD COUNT 5477802 Eos Auto 3.4 % 7 Unknown COMPLETE BLOOD COUNT 9223367 Baso Auto 0.3 % 7 Unknown COMPLETE BLOOD COUNT 8160731 Neutrophil Abs 2.21 10e9/L Unknown COMPLETE BLOOD COUNT 1119330 Lymphocyte Abs 3.02 10e9/L Unknown COMPLETE BLOOD COUNT 6440148 Monocyte Abs 0.54 10e9/L 11/2016 Unknown COMPLETE BLOOD COUNT 3847555 Eosinophil Abs 0.20 10e9/L Unknown COMPLETE BLOOD COUNT 6773618 RDW-SD 44.0 fL 7 Unknown COMPLETE BLOOD COUNT 8583970 Basophil Abs 0.02 10e9/L 11/2016 Unknown GLYCOSYLATED HEMOGLOBIN TEST 66332 Hgb A1c 19373-7 5.4 % 0 05/13/2016 Unknown THYROID STIMULATING HORMONE 16148 TSH 2.200 uIU/mL 05/13/2016 Unknown GFR CALC 1177048 GFR Non Afr Amr 50 mL/min 05/13/2016 Unk nown GFR CALC 3360559 GFR Afr Amr >60 mL/min 05/13/2016 Unknow n MEAN GLUC 4061582 Calc Mean Gluc 108 mg/dL 05/13/2016 Unkn own COMPREHENSIVE METABOLIC 05760 AST 18 U/L 2016 Unknown COMPREHENSIVE METABOLIC 98741 ALT 10 U/L 2016 Unknown COMPREHENSIVE METABOLIC 32185 BUN 20 mg/dL 2016 Unknown COMPREHENSIVE METABOLIC 19690 ALBUMIN 4.1 g/dL 2016 Unknown COMPREHENSIVE METABOLIC 21205 CHLORIDE 109 mmol/L 05/13 Unknown COMPREHENSIVE METABOLIC 86956 Bili Total 0.6 mg/dL 05/13 Unknown COMPREHENSIVE METABOLIC 56709 ALK PHOS 64 U/L 2016 Unknown COMPREHENSIVE METABOLIC 80962 SODIUM 141 mmol/L 05/13 Unknown COMPREHENSIVE METABOLIC 99096 CREATININE 1.06 mg/dL 11/2016 Unknown COMPREHENSIVE METABOLIC 76795 CALCIUM 9.9 mg/dL 2016 Unknown COMPREHENSIVE METABOLIC 92162 POTASSIUM 4.2 mmol/L 05/13 Unknown COMPREHENSIVE METABOLIC 67638 Total Protein 6.3 g/dL Unknown COMPREHENSIVE METABOLIC 31641 Glucose 99 mg/dL 2016 Unknown COMPREHENSIVE METABOLIC 64731 Bicarbonate 21 mmol/L 11/2016 Unknown COMPREHENSIVE METABOLIC 58200 AGAP 11 mmol/L 2016 Unknown LIPID GROUP 31367 Cholesterol 169 mg/dL 11/25/2015 Unkno wn LIPID GROUP 50574 Triglyceride 165 mg/dL 11/25/2015 Unkn own LIPID GROUP 02996 HDL CHOLESTEROL 43 mg/dL 11/25/2015 U nknown LIPID GROUP 87651 Chol/HDL Ratio 3.93 ratio 11/25/2015 U nknown LIPID GROUP 71266 NON-HDL Chol 126 mg/dL 11/25/2015 Unkn own LIPID GROUP 79985 LDL Cholesterol 93 mg/dL 11/25/2015 U nknown COMPREHENSIVE METABOLIC 07161 AST 18 U/L 2015 Unknown COMPREHENSIVE METABOLIC 01357 ALT 10 U/L 2015 Unknown COMPREHENSIVE METABOLIC 85263 BUN 20 mg/dL 2015 Unknown COMPREHENSIVE METABOLIC 96409 ALBUMIN 3.9 g/dL 2015 Unknown COMPREHENSIVE METABOLIC 59696 CHLORIDE 110 mmol/L 11/24 Unknown COMPREHENSIVE METABOLIC 57840 Bili Total 0.5 mg/dL 11/24 Unknown COMPREHENSIVE METABOLIC 77034 ALK PHOS 72 U/L 2015 Unknown COMPREHENSIVE METABOLIC 59123 SODIUM 141 mmol/L 11/24 Unknown COMPREHENSIVE METABOLIC 89360 CREATININE 1.12 mg/dL 11/06 Unknown COMPREHENSIVE METABOLIC 73763 CALCIUM 9.7 mg/dL 2015 Unknown COMPREHENSIVE METABOLIC 22086 POTASSIUM 4.4 mmol/L 11/24 Unknown COMPREHENSIVE METABOLIC 04297 Total Protein 6.2 g/dL Unknown COMPREHENSIVE METABOLIC 13557 Glucose 90 mg/dL 2015 Unknown COMPREHENSIVE METABOLIC 66694 Bicarbonate 23 mmol/L 11/06 Unknown COMPREHENSIVE METABOLIC 90331 AGAP 8 mmol/L 2015 Unknown GFR CALC 7961033 GFR Non Afr Amr 47 mL/min 11/25/2015 Unk nown GFR CALC 8544390 GFR Afr Amr 57 mL/min 11/25/2015 Unknown GLYCOSYLATED HEMOGLOBIN TEST 83701 Hgb A1c 78609-8 5.5 % 0 11/25/2015 Unknown THYROID STIMULATING HORMONE 27612 TSH 2.537 uIU/mL 11/25/2015 Unknown FREE T4 49009 T4 Free 1.36 ng/dL 11/25/2015 Unknown COMPLETE BLOOD COUNT 3607609 WBC 6.8 10e9/L 11/25/19 16 Unknown COMPLETE BLOOD COUNT 0712465 RBC 4.20 10e12/L 2015 Unknown COMPLETE BLOOD COUNT 4063578 HEMOGLOBIN 12.5 g/dL 11/25/19 16 Unknown COMPLETE BLOOD COUNT 2572737 HEMATOCRIT 38.0 % 11/25/19 16 Unknown COMPLETE BLOOD COUNT 9194030 MCV 90.5 fL 6 Unknown COMPLETE BLOOD COUNT 2621997 MCH 29.8 pg 6 Unknown COMPLETE BLOOD COUNT 7551529 MCHC 32.9 g/dL 6 Unknown COMPLETE BLOOD COUNT 2439305 PLATELET COUNT 197 10e9/L Unknown COMPLETE BLOOD COUNT 8271874 Mean Plt Volume 11.7 fL Unknown COMPLETE BLOOD COUNT 5076937 Neut Auto 41.3 % 6 Unknown COMPLETE BLOOD COUNT 5428890 Lymph Auto 47.1 % 11/25/19 16 Unknown COMPLETE BLOOD COUNT 9471193 [place] Auto 7.8 % 6 Unknown COMPLETE BLOOD COUNT 1858293 RDW 13.8 % 6 Unknown COMPLETE BLOOD COUNT 7494101 Eos Auto 3.4 % 6 Unknown COMPLETE BLOOD COUNT 6800381 Baso Auto 0.4 % 6 Unknown COMPLETE BLOOD COUNT 9580280 Neutrophil Abs 2.81 10e9/L Unknown COMPLETE BLOOD COUNT 7043819 Lymphocyte Abs 3.20 10e9/L Unknown COMPLETE BLOOD COUNT 8173688 Monocyte Abs 0.53 10e9/L 11/06 Unknown COMPLETE BLOOD COUNT 1526018 Eosinophil Abs 0.23 10e9/L Unknown COMPLETE BLOOD COUNT 3324137 RDW-SD 44.4 fL 6 Unknown COMPLETE BLOOD COUNT [id number] Basophil Abs 0.03 10e9/L 11/06 Unknown MEAN GLUC 3941180 Calc Mean Gluc 111 mg/dL 11/25/2015 [place] [address] Glucose 89 MG/DL 02/19 [place] [address] CREATININE 1.12 MG/DL [place] [address] BUN 20 MG/DL 02/19 [place] [address] SODIUM 139 MMOL/L 02/04 [place] [address] POTASSIUM 4.6 MMOL/L 02/04 [place] [address] CHLORIDE 108 MMOL/L 02/04 [place] [address] BICARB 26 MMOL/L 02/19 [place] [address] ANION GAP 5 MEQ/L 02/19 [place] [address] CALCIUM 10.0 MG/DL 02/04 Unknown GFR CALC 8178142 GFR AA 57.0L ML/MIN 02/19/2015 Unknow n GFR CALC 0381807 GFR NON-AA 47.0L ML/MIN 02/19/2015 Unkno wn THYROID STIMULATING HORMONE 71716 TSH 2.378 uIU/ML 11/14/2014 Unknown COMPLETE BLOOD COUNT 2679876 WBC 6.4 10e9/L 11/15/19 15 Unknown COMPLETE BLOOD COUNT 8646611 RBC 3.99 10e12/L 2014 Unknown COMPLETE BLOOD COUNT 0051503 HGB 11.9 g/dL 5 Unknown COMPLETE BLOOD COUNT 7764091 HCT DET 36.9 % 5 Unknown COMPLETE BLOOD COUNT 3670979 MCV 92.5 fL 5 Unknown COMPLETE BLOOD COUNT 5131250 MCH 29.8 pg 5 Unknown COMPLETE BLOOD COUNT 4627481 MCHC 32.2 g/dL 5 Unknown COMPLETE BLOOD COUNT 6715489 PLT 172 10e9/L 11/15/19 15 Unknown COMPLETE BLOOD COUNT 2390308 MPV 11.7 fL 5 Unknown COMPLETE BLOOD COUNT 6612289 CINTHYA % 40.4 % 5 Unknown COMPLETE BLOOD COUNT 7587322 LY % 48.0 % 5 Unknown COMPLETE BLOOD COUNT 8884048 MON % 8.3 % 5 Unknown COMPLETE BLOOD COUNT 0109034 EOS % 2.8 % 5 Unknown COMPLETE BLOOD COUNT 6980587 BASO % 0.5 % 5 Unknown COMPLETE BLOOD COUNT 1716373 RDW 13.6 % 5 Unknown COMPLETE BLOOD COUNT 8394568 ABS CINTHYA 2.59 10e9/L 015 Unknown COMPLETE BLOOD COUNT 6729252 ABS LYMPH 3.07 10e9/L 015 Unknown COMPLETE BLOOD COUNT 7797845 ABS MONO 0.53 10e9/L 015 Unknown COMPLETE BLOOD COUNT 7930295 ABS EOS 0.18 10e9/L 015 Unknown COMPLETE BLOOD COUNT 4898661 ABS BASO 0.03 10e9/L 015 Unknown COMPLETE BLOOD COUNT 6120314 RDW-SD 44.9 fL 5 Unknown LIPID GROUP 07081 HDL TEST 42 MG/DL 11/14/2014 Unknown LIPID GROUP 15629 TRIG 177 MG/DL 11/14/2014 Unknown LIPID GROUP 46357 TEST LDL 72 MG/DL 11/14/2014 Unknown LIPID GROUP 66091 CHOL 149 MG/DL 11/14/2014 Unknown LIPID GROUP 12597 RCHOL/HDL 3.55 RATIO 11/14/2014 Unknow n LIPID GROUP 55481 NON-HDL CH 107 MG/DL 11/14/2014 Unknow n GLYCOSYLATED HEMOGLOBIN TEST 44872 A1C HPLC 31356-3 5.5 % 0 11/14/2014 Unknown FREE T4 86398 FREE T4 1.39 NG/DL 11/14/2014 Unknown GFR CALC 5681609 GFR AA 55.0L ML/MIN 11/14/2014 Unknow n GFR CALC 5141150 GFR NON-AA 46.0L ML/MIN 11/14/2014 Unkno wn COMPREHENSIVE METABOLIC 76017 AST 17 U/L 2014 Unknown COMPREHENSIVE METABOLIC 24283 ALT 10 IU/L 2014 Unknown COMPREHENSIVE METABOLIC 55264 BUN 20 MG/DL 2014 Unknown COMPREHENSIVE METABOLIC 31462 ALBUMIN 3.9 GM/DL 2014 Unknown COMPREHENSIVE METABOLIC 21749 CHLORIDE 111 MMOL/L 11/14 Unknown COMPREHENSIVE METABOLIC 24481 BILI TOT 0.4 MG/DL 2014 Unknown COMPREHENSIVE METABOLIC 14091 ALK PHOS 70 U/L 2014 Unknown COMPREHENSIVE METABOLIC 31878 SODIUM 142 MMOL/L 11/14 Unknown COMPREHENSIVE METABOLIC 44572 CREATININE 1.16 MG/DL 11/05 Unknown COMPREHENSIVE METABOLIC 87810 CALCIUM 9.4 MG/DL 2014 Unknown COMPREHENSIVE METABOLIC 30288 POTASSIUM 4.6 MMOL/L 11/14 Unknown COMPREHENSIVE METABOLIC 00191 PROT TOT 6.2 GM/DL 2014 Unknown COMPREHENSIVE METABOLIC 51701 Glucose 90 MG/DL 2014 Unknown COMPREHENSIVE METABOLIC 48509 BICARB 24 MMOL/L 2014 Unknown COMPREHENSIVE METABOLIC 62388 ANION GAP 7 MEQ/L 2014 Unknown THYROID STIMULATING HORMONE 19724 TSH 2.427 uIU/ML 05/10/2014 Unknown LIPID GROUP 40417 HDL TEST 47 MG/DL 05/10/2014 Unknown LIPID GROUP 14634 TRIG 145 MG/DL 05/10/2014 Unknown LIPID GROUP 87383 TEST LDL 73 MG/DL 05/10/2014 Unknown LIPID GROUP 66876 CHOL 149 MG/DL 05/10/2014 Unknown LIPID GROUP 83413 RCHOL/HDL 3.17 RATIO 05/10/2014 Unknow n LIPID GROUP 54251 NON-HDL CH 102 MG/DL 05/10/2014 Unknow n COMPREHENSIVE METABOLIC 17470 AST 17 U/L 2014 Unknown COMPREHENSIVE METABOLIC 39348 ALT 9 IU/L 2014 Unknown COMPREHENSIVE METABOLIC 10678 BUN 19 MG/DL 2014 Unknown COMPREHENSIVE METABOLIC 92379 ALBUMIN 4.3 GM/DL 2014 Unknown COMPREHENSIVE METABOLIC 33852 CHLORIDE 108 MMOL/L 05/10 Unknown COMPREHENSIVE METABOLIC 80887 BILI TOT 0.5 MG/DL 2014 Unknown COMPREHENSIVE METABOLIC 72163 ALK PHOS 68 U/L 2014 Unknown COMPREHENSIVE METABOLIC 73526 SODIUM 140 MMOL/L 05/10 Unknown COMPREHENSIVE METABOLIC 23439 CREATININE 1.08 MG/DL 08/2014 Unknown COMPREHENSIVE METABOLIC 31852 CALCIUM 9.9 MG/DL 2014 Unknown COMPREHENSIVE METABOLIC 55967 POTASSIUM 4.3 MMOL/L 05/10 Unknown COMPREHENSIVE METABOLIC 73417 PROT TOT 7.2 GM/DL 2014 Unknown COMPREHENSIVE METABOLIC 61763 Glucose 94 MG/DL 2014 Unknown COMPREHENSIVE METABOLIC 13629 BICARB 26 MMOL/L 2014 Unknown COMPREHENSIVE METABOLIC 63753 ANION GAP 6 MEQ/L 2014 Unknown GFR CALC 7676323 GFR AA 60.0L ML/MIN 05/10/2014 Unknow n GFR CALC 3498551 GFR NON-AA 49.0L ML/MIN 05/10/2014 Unkno wn GLYCOSYLATED HEMOGLOBIN TEST 17137 A1C HPLC 57579-0 5.6 % 0 05/10/2014 Unknown COMPLETE BLOOD COUNT 5355737 WBC 7.2 10e9/L 05/11/19 15 Unknown COMPLETE BLOOD COUNT 7078243 RBC 4.28 10e12/L 2014 Unknown COMPLETE BLOOD COUNT 6683766 HGB 12.8 g/dL 5 Unknown COMPLETE BLOOD COUNT 8796849 HCT DET 39.3 % 5 Unknown COMPLETE BLOOD COUNT 3839144 MCV 91.8 fL 5 Unknown COMPLETE BLOOD COUNT 1183048 MCH 29.9 pg 5 Unknown COMPLETE BLOOD COUNT 5803804 MCHC 32.6 g/dL 5 Unknown COMPLETE BLOOD COUNT 2718005 PLT 189 10e9/L 05/11/19 15 Unknown COMPLETE BLOOD COUNT 9229462 MPV 11.2 fL 5 Unknown COMPLETE BLOOD COUNT 9166349 CINTHYA % 38.0 % 5 Unknown COMPLETE BLOOD COUNT 9428723 LY % 51.0 % 5 Unknown COMPLETE BLOOD COUNT 9430172 MON % 7.7 % 5 Unknown COMPLETE BLOOD COUNT 3406843 EOS % 2.9 % 5 Unknown COMPLETE BLOOD COUNT 0294458 BASO % 0.4 % 5 Unknown COMPLETE BLOOD COUNT 5697561 RDW 14.0 % 5 Unknown COMPLETE BLOOD COUNT 4902611 ABS CINTHYA 2.74 10e9/L 015 Unknown COMPLETE BLOOD COUNT 1395066 ABS LYMPH 3.67 10e9/L 015 Unknown COMPLETE BLOOD COUNT 7958477 ABS MONO 0.55 10e9/L 015 Unknown COMPLETE BLOOD COUNT 6403485 ABS EOS 0.21 10e9/L 015 Unknown COMPLETE BLOOD COUNT 5402822 ABS BASO 0.03 10e9/L 015 Unknown COMPLETE BLOOD COUNT 2178051 RDW-SD 46.1 fL 5 Unknown FREE T4 08127 FREE T4 1.14 NG/DL 05/10/2014 Unknown GLYCOSYLATED HEMOGLOBIN TEST 67250 A1C HPLC 55790-5 5.2 % 0 03/29/2013 Unknown FREE T4 05525 FREE T4 1.40 NG/DL 03/28/2013 Unknown GFR CALC 4220125 GFR AA >60 ML/MIN 03/28/2013 Unknown GFR CALC 2358758 GFR NON-AA 52.0L ML/MIN 03/28/2013 Unkno wn COMPREHENSIVE METABOLIC 95196 AST 15 U/L 2013 Unknown COMPREHENSIVE METABOLIC 22968 ALT 9 IU/L 2013 Unknown COMPREHENSIVE METABOLIC 07132 BUN 17 MG/DL 2013 Unknown COMPREHENSIVE METABOLIC 41884 ALBUMIN 4.0 GM/DL 2013 Unknown COMPREHENSIVE METABOLIC 57904 CHLORIDE 112 MMOL/L 03/28 Unknown COMPREHENSIVE METABOLIC 16206 BILI TOT 0.5 MG/DL 2013 Unknown COMPREHENSIVE METABOLIC 95946 ALK PHOS 66 U/L 2013 Unknown COMPREHENSIVE METABOLIC 88682 SODIUM 140 MMOL/L 03/28 Unknown COMPREHENSIVE METABOLIC 56345 CREATININE 1.03 MG/DL 03/08 Unknown COMPREHENSIVE METABOLIC 10776 CALCIUM 9.5 MG/DL 2013 Unknown COMPREHENSIVE METABOLIC 68311 POTASSIUM 4.1 MMOL/L 03/28 Unknown COMPREHENSIVE METABOLIC 79200 PROT TOT 6.2 GM/DL 2013 Unknown COMPREHENSIVE METABOLIC 67109 Glucose 102 MG/DL 2013 Unknown COMPREHENSIVE METABOLIC 56992 BICARB 23 MMOL/L 2013 Unknown COMPREHENSIVE METABOLIC 16474 ANION GAP 5 MEQ/L 2013 Unknown THYROID STIMULATING HORMONE 95640 TSH 2.074 uIU/ML 03/28/2013 Unknown VITAMIN B 12 FOLIC ACID 40907|46641 VIT B 12 423 PG/ML 03/08 Unknown VITAMIN B 12 FOLIC ACID 86018|82387 FOLIC ACID 19.7 NG/ML Unknown LIPID GROUP 97556 HDL TEST 40 MG/DL 03/28/2013 Unknown LIPID GROUP 50560 TRIG 145 MG/DL 03/28/2013 Unknown LIPID GROUP 46829 TEST LDL 81 MG/DL 03/28/2013 Unknown LIPID GROUP 64830 CHOL 150 MG/DL 03/28/2013 Unknown LIPID GROUP 46140 RCHOL/HDL 3.75 RATIO 03/28/2013 Unknow n COMPLETE BLOOD COUNT 8386870 WBC 6.0 10e9/L 03/28/19 14 Unknown COMPLETE BLOOD COUNT 7087349 RBC 4.26 10e12/L 2013 Unknown COMPLETE BLOOD COUNT 6755040 HGB 12.7 g/dL 4 Unknown COMPLETE BLOOD COUNT 1996566 HCT DET 38.7 % 4 Unknown COMPLETE BLOOD COUNT 3761136 MCV 90.8 fL 4 Unknown COMPLETE BLOOD COUNT 8393919 MCH 29.8 pg 4 Unknown COMPLETE BLOOD COUNT 5997976 MCHC 32.8 g/dL 4 Unknown COMPLETE BLOOD COUNT 6139723 PLT 178 10e9/L 03/28/19 14 Unknown COMPLETE BLOOD COUNT 5103084 MPV 11.7 fL 4 Unknown COMPLETE BLOOD COUNT 7629706 CINTHYA % 30.5 % 4 Unknown COMPLETE BLOOD COUNT 6763993 LY % 55.4 % 4 Unknown COMPLETE BLOOD COUNT 3843381 MON % 9.0 % 4 Unknown COMPLETE BLOOD COUNT 0456493 EOS % 4.4 % 4 Unknown COMPLETE BLOOD COUNT 4037166 BASO % 0.7 % 4 Unknown COMPLETE BLOOD COUNT 9355933 RDW 13.3 % 4 Unknown COMPLETE BLOOD COUNT 6257509 ABS CINTHYA 1.83 10e9/L 014 Unknown COMPLETE BLOOD COUNT 6762454 ABS LYMPH 3.32 10e9/L 014 Unknown COMPLETE BLOOD COUNT 6080486 ABS MONO 0.54 10e9/L 014 Unknown COMPLETE BLOOD COUNT 2353024 ABS EOS 0.26 10e9/L 014 Unknown COMPLETE BLOOD COUNT 0338122 ABS BASO 0.04 10e9/L 014 Unknown COMPLETE BLOOD COUNT 4894132 RDW-SD 43.2 fL 4 Unknown HEMOGLOBIN A1C (GLYCOSYLATED) 7848490 A1C HPLC 45072-4 5.5 % 02/24/2012 Unknown COMPLETE BLOOD COUNT 5560110 WBC 6.0 10e9/L 02/23/20 12 Unknown COMPLETE BLOOD COUNT 6944726 RBC 4.22 10e12/L 2011 Unknown COMPLETE BLOOD COUNT 0533927 HGB 12.4 g/dL 2 Unknown COMPLETE BLOOD COUNT 8664921 HCT DET 38.2 % 2 Unknown COMPLETE BLOOD COUNT 7843501 MCV 90.5 fL 2 Unknown COMPLETE BLOOD COUNT 5314757 MCH 29.4 pg 2 Unknown COMPLETE BLOOD COUNT 3006976 MCHC 32.5 g/dL 2 Unknown COMPLETE BLOOD COUNT 1994485 PLT 187 10e9/L 02/23/20 12 Unknown COMPLETE BLOOD COUNT 0766002 MPV 11.5 fL 2 Unknown COMPLETE BLOOD COUNT 8330723 CINTHYA % 36.4 % 2 Unknown COMPLETE BLOOD COUNT 5136456 LY % 51.0 % 2 Unknown COMPLETE BLOOD COUNT 7756342 MON % 8.7 % 2 Unknown COMPLETE BLOOD COUNT 6527341 EOS % 3.2 % 2 Unknown COMPLETE BLOOD COUNT 1016408 BASO % 0.7 % 2 Unknown COMPLETE BLOOD COUNT 5496754 RDW 13.7 % 2 Unknown COMPLETE BLOOD COUNT 5724175 ABS CINTHYA 2.18 10e9/L 012 Unknown COMPLETE BLOOD COUNT 6799365 ABS LYMPH 3.06 10e9/L 012 Unknown COMPLETE BLOOD COUNT 8824613 ABS MONO 0.52 10e9/L 012 Unknown COMPLETE BLOOD COUNT 0037708 ABS EOS 0.19 10e9/L 012 Unknown COMPLETE BLOOD COUNT 3042973 ABS BASO 0.04 10e9/L 012 Unknown COMPLETE BLOOD COUNT 3241888 RDW-SD 44.3 fL 2 Unknown LIPID GROUP 99619 HDL TEST 42 MG/DL 02/23/2012 Unknown LIPID GROUP 87100 TRIG 156 MG/DL 02/23/2012 Unknown LIPID GROUP 67157 TEST LDL 80 MG/DL 02/23/2012 Unknown LIPID GROUP 43875 CHOL 153 MG/DL 02/23/2012 Unknown LIPID GROUP 76574 RCHOL/HDL 3.64 RATIO 02/23/2012 Unknow n FREE T4 58401 FREE T4 1.22 NG/DL 02/23/2012 Unknown COMPREHENSIVE METABOLIC 62951 AST 20 U/L 2011 Unknown COMPREHENSIVE METABOLIC 70899 ALT 11 IU/L 2011 Unknown COMPREHENSIVE METABOLIC 58256 BUN 19 MG/DL 2011 Unknown COMPREHENSIVE METABOLIC 54489 ALBUMIN 4.3 GM/DL 2011 Unknown COMPREHENSIVE METABOLIC 69524 CHLORIDE 109 MMOL/L 02/22 Unknown COMPREHENSIVE METABOLIC 19254 BILI TOT 0.6 MG/DL 2011 Unknown COMPREHENSIVE METABOLIC 59385 ALK PHOS 84 U/L 2011 Unknown COMPREHENSIVE METABOLIC 30787 SODIUM 142 MMOL/L 02/22 Unknown COMPREHENSIVE METABOLIC 44760 CREATININE 1.09 MG/DL 02/04 Unknown COMPREHENSIVE METABOLIC 14139 CALCIUM 9.8 MG/DL 2011 Unknown COMPREHENSIVE METABOLIC 68279 POTASSIUM 4.2 MMOL/L 02/22 Unknown COMPREHENSIVE METABOLIC 68514 PROT TOT 6.4 GM/DL 2011 Unknown COMPREHENSIVE METABOLIC 35469 Glucose 89 MG/DL 2011 Unknown COMPREHENSIVE METABOLIC 28695 BICARB 25 MMOL/L 2011 Unknown COMPREHENSIVE METABOLIC 26049 ANION GAP 8 MEQ/L 2011 Unknown GFR CALC 4913173 GFR AA 60.0L ML/MIN 02/23/2012 Unknow n GFR CALC 8022791 GFR NON-AA 49.0L ML/MIN 02/23/2012 Unkno wn THYROID STIMULATING HORMONE 64330 TSH 2.450 uIU/ML 02/23/2012 Unknown COMPREHENSIVE METABOLIC 48083 AST 22 U/L 2011 Unknown COMPREHENSIVE METABOLIC 15370 ALT 14 IU/L 2011 Unknown COMPREHENSIVE METABOLIC 35226 BUN 21 MG/DL 2011 Unknown COMPREHENSIVE METABOLIC 67264 ALBUMIN 4.3 GM/DL 2011 Unknown COMPREHENSIVE METABOLIC 51150 CHLORIDE 106 MMOL/L 04/01 Unknown COMPREHENSIVE METABOLIC 85698 BILI TOT 0.4 MG/DL 2011 Unknown COMPREHENSIVE METABOLIC 56360 ALK PHOS 80 U/L 2011 Unknown COMPREHENSIVE METABOLIC 49179 SODIUM 141 MMOL/L 04/01 Unknown COMPREHENSIVE METABOLIC 49723 CREATININE 1.13 MG/DL 03/08 Unknown COMPREHENSIVE METABOLIC 97356 CALCIUM 9.4 MG/DL 2011 Unknown COMPREHENSIVE METABOLIC 04007 POTASSIUM 4.3 MMOL/L 04/01 Unknown COMPREHENSIVE METABOLIC 84040 PROT TOT 6.7 GM/DL 2011 Unknown COMPREHENSIVE METABOLIC 17673 Glucose 98 MG/DL 2011 Unknown COMPREHENSIVE METABOLIC 14934 BICARB 25 MMOL/L 2011 Unknown COMPREHENSIVE METABOLIC 60073 ANION GAP 10 MEQ/L 2011 Unknown LIPID GROUP 94673 HDL TEST 44 MG/DL 04/01/2011 Unknown LIPID GROUP 10398 TRIG 164 MG/DL 04/01/2011 Unknown LIPID GROUP 12267 TEST LDL 98 MG/DL 04/01/2011 Unknown LIPID GROUP 29348 CHOL 175 MG/DL 04/01/2011 Unknown LIPID GROUP 96688 RCHOL/HDL 3.98 RATIO 04/01/2011 Unknow n COMPLETE BLOOD COUNT 77299 WBC 6.7 10e9/L 04/01/19 12 Unknown COMPLETE BLOOD COUNT 22098 RBC 4.36 10e12/L 2011 Unknown COMPLETE BLOOD COUNT 82565 HGB 12.9 g/dL 2 Unknown COMPLETE BLOOD COUNT 45446 HCT DET 39.4 % 2 Unknown COMPLETE BLOOD COUNT 29299 MCV 90.4 fL 2 Unknown COMPLETE BLOOD COUNT 61886 MCH 29.6 pg 2 Unknown COMPLETE BLOOD COUNT 77039 MCHC 32.7 g/dL 2 Unknown COMPLETE BLOOD COUNT 15792 PLT 184 10e9/L 04/01/19 12 Unknown COMPLETE BLOOD COUNT 61717 MPV 10.9 fL 2 Unknown COMPLETE BLOOD COUNT 50458 CINTHYA % 41.5 % 2 Unknown COMPLETE BLOOD COUNT 54198 LY % 45.7 % 2 Unknown COMPLETE BLOOD COUNT 91359 MON % 9.4 % 2 Unknown COMPLETE BLOOD COUNT 50229 EOS % 3.0 % 2 Unknown COMPLETE BLOOD COUNT 91292 BASO % 0.4 % 2 Unknown COMPLETE BLOOD COUNT 81258 RDW 13.2 % 2 Unknown COMPLETE BLOOD COUNT 78538 ABS CINTHYA 2.78 10e9/L 012 Unknown COMPLETE BLOOD COUNT 57954 ABS LYMPH 3.06 10e9/L 012 Unknown COMPLETE BLOOD COUNT 04138 ABS MONO 0.63 10e9/L 012 Unknown COMPLETE BLOOD COUNT 53909 ABS EOS 0.20 10e9/L 012 Unknown COMPLETE BLOOD COUNT 54132 ABS BASO 0.03 10e9/L 012 Unknown COMPLETE BLOOD COUNT 28366 RDW-SD 42.3 fL 2 Unknown GFR CALC [id number] GFR AA 57.0L ML/MIN 04/01/2011 Unknow n GFR CALC [id number] GFR NON-AA 47.0L ML/MIN 04/01/2011 Unkno wn THYROID STIMULATING HORMONE 56658 TSH 2.663 uIU/ML 04/01/2011 Unknown FREE T4 02556 FREE T4 1.15 NG/DL 04/01/2011 Unknown THYROID STIMULATING HORMONE 20372 TSH 1.908 uIU/ML 07/06/2010 Unknown COMPLETE BLOOD COUNT 26782 WBC 6.4 10e9/L 07/07/19 11 Unknown COMPLETE BLOOD COUNT 82032 RBC 3.92 10e12/L 2010 Unknown COMPLETE BLOOD COUNT 16410 HGB 11.8 g/dL 1 Unknown COMPLETE BLOOD COUNT 34823 HCT DET 36.0 % 1 Unknown COMPLETE BLOOD COUNT 32104 MCV 91.8 fL 1 Unknown COMPLETE BLOOD COUNT 11514 MCH 30.1 pg 1 Unknown COMPLETE BLOOD COUNT 05417 MCHC 32.8 g/dL 1 Unknown COMPLETE BLOOD COUNT 17721 PLT 176 10e9/L 07/07/19 11 Unknown COMPLETE BLOOD COUNT 33480 MPV 11.4 fL 1 Unknown COMPLETE BLOOD COUNT 68421 CINTHYA % 50.4 % 1 Unknown COMPLETE BLOOD COUNT 53590 LY % 35.5 % 1 Unknown COMPLETE BLOOD COUNT 76141 MON % 10.2 % 1 Unknown COMPLETE BLOOD COUNT 10284 EOS % 3.3 % 1 Unknown COMPLETE BLOOD COUNT 39118 BASO % 0.6 % 1 Unknown COMPLETE BLOOD COUNT 44749 RDW 13.7 % 1 Unknown COMPLETE BLOOD COUNT 79856 ABS CINTHYA 3.23 10e9/L 011 Unknown COMPLETE BLOOD COUNT 71368 ABS LYMPH 2.27 10e9/L 011 Unknown COMPLETE BLOOD COUNT 99506 ABS MONO 0.65 10e9/L 011 Unknown COMPLETE BLOOD COUNT 07649 ABS EOS 0.21 10e9/L 011 Unknown COMPLETE BLOOD COUNT 18005 ABS BASO 0.04 10e9/L 011 Unknown COMPLETE BLOOD COUNT 78202 RDW-SD 45.3 fL 1 Unknown GFR CALC [id number] GFR AA >60 ML/MIN 07/06/2010 Unknown GFR CALC 1507199 GFR NON-AA 53.0L ML/MIN 07/06/2010 Unkno wn FREE T4 07595 FREE T4 1.20 NG/DL 07/06/2010 Unknown COMPREHENSIVE METABOLIC 05749 AST 17 U/L 2010 Unknown COMPREHENSIVE METABOLIC 18737 ALT 9 IU/L 2010 Unknown COMPREHENSIVE METABOLIC 99399 BUN 16 MG/DL 2010 Unknown COMPREHENSIVE METABOLIC 15405 ALBUMIN 4.0 GM/DL 2010 Unknown COMPREHENSIVE METABOLIC 31663 CHLORIDE 108 MMOL/L 07/06 Unknown COMPREHENSIVE METABOLIC 50464 BILI TOT 0.5 MG/DL 2010 Unknown COMPREHENSIVE METABOLIC 59335 ALK PHOS 76 U/L 2010 Unknown COMPREHENSIVE METABOLIC 11296 SODIUM 139 MMOL/L 07/06 Unknown COMPREHENSIVE METABOLIC 22564 CREATININE 1.02 MG/DL 04/2010 Unknown COMPREHENSIVE METABOLIC 22673 CALCIUM 9.2 MG/DL 2010 Unknown COMPREHENSIVE METABOLIC 70840 POTASSIUM 4.5 MMOL/L 07/06 Unknown COMPREHENSIVE METABOLIC 26851 PROT TOT 6.1 GM/DL 2010 Unknown COMPREHENSIVE METABOLIC 19717 Glucose 93 MG/DL 2010 Unknown COMPREHENSIVE METABOLIC 95690 BICARB 26 MMOL/L 2010 Unknown COMPREHENSIVE METABOLIC 57397 ANION GAP 5 MEQ/L 2010 Unknown LIPID GROUP 87168 HDL TEST 46 MG/DL 07/06/2010 Unknown LIPID GROUP 05644 TRIG 102 MG/DL 07/06/2010 Unknown LIPID GROUP 88428 TEST LDL 88 MG/DL 07/06/2010 Unknown LIPID GROUP 32529 CHOL 154 MG/DL 07/06/2010 Unknown LIPID GROUP 30214 RCHOL/HDL 3.35 RATIO 07/06/2010 Unknow n Procedures Procedure Codes Date ROUTINE VENIPUNCTURE CPT-4: 11246 03/13/2019 ASSAY THYROID STIM HORMONE CPT-4: 14691 03/13/2019 COMPLETE CBC W/AUTO DIFF WBC CPT-4: 32575 03/13/2019 COMPREHEN METABOLIC PANEL CPT-4: 39282 03/13/2019 ROUTINE VENIPUNCTURE CPT-4: 77517 01/23/2019 LIPID PANEL CPT-4: 19009 01/23/2019 FLU VACC PRSV FREE INC ANTIG 65 AND OLDER CPT-4: 09625 12/26/2018 FLU VACC PRSV FREE INC ANTIG 65 AND OLDER CPT-4: 60055 12/26/2018 ADMIN INFLUENZA VIRUS VAC CPT-4: G0008 12/26/2018 COMPREHEN METABOLIC PANEL CPT-4: 27657 12/15/2018 ROUTINE VENIPUNCTURE CPT-4: 81462 12/15/2018 ROUTINE VENIPUNCTURE CPT-4: 64406 08/14/2018 ASSAY THYROID STIM HORMONE CPT-4: 22691 08/14/2018 COMPREHEN METABOLIC PANEL CPT-4: 96618 08/14/2018 COMPLETE CBC W/AUTO DIFF WBC CPT-4: 89125 08/14/2018 URINALYSIS NONAUTO W/O SCOPE CPT-4: 78973 05/10/2018 URINE CULTURE/ COLONY COUNT CPT-4: 46882 05/10/2018 URINE CULTURE/ COLONY COUNT CPT-4: 42513 12/06/2017 ROUTINE VENIPUNCTURE CPT-4: 52744 11/30/2017 ASSAY OF FREE THYROXINE CPT-4: 18898 11/30/2017 ASSAY THYROID STIM HORMONE CPT-4: 80614 11/30/2017 COMPLETE CBC W/AUTO DIFF WBC CPT-4: 35564 11/30/2017 METABOLIC PANEL TOTAL CA CPT-4: 85787 11/30/2017 FLU VACC PRSV FREE INC ANTIG 65 AND OLDER CPT-4: 93196 11/22/2017 ASSAY, GLUCOSE, BLOOD QUANT CPT-4: 95794 11/22/2017 ADMIN INFLUENZA VIRUS VAC CPT-4: G0008 11/22/2017 ROUTINE VENIPUNCTURE CPT-4: 54251 09/27/2017 COMPREHEN METABOLIC PANEL CPT-4: 41344 09/27/2017 COMPLETE CBC W/AUTO DIFF WBC CPT-4: 86311 09/27/2017 A1C HPLC CPT-4: 33327 09/27/2017 ASSAY OF TROPONIN QUANT CPT-4: 12458 09/27/2017 LIPID PANEL CPT-4: 12610 09/27/2017 THER/PROPH/DIAG INJ SC/IM CPT-4: 89706 05/30/2017 TRIAMCINOLONE ACET INJ NOS CPT-4: J3301 05/30/2017 URINALYSIS NONAUTO W/O SCOPE CPT-4: 55959 04/18/2017 URINE CULTURE/ COLONY COUNT CPT-4: 88754 04/18/2017 FLU VACC PRSV FREE INC ANTIG 65 AND OLDER CPT-4: 89179 12/10/2016 ADMIN INFLUENZA VIRUS VAC CPT-4: G0008 12/10/2016 ROUTINE VENIPUNCTURE CPT-4: 74821 11/01/2016 COMPREHEN METABOLIC PANEL CPT-4: 63276 11/01/2016 COMPLETE CBC W/AUTO DIFF WBC CPT-4: 08987 11/01/2016 LIPID PANEL CPT-4: 25229 11/01/2016 A1C HPLC CPT-4: 62514 11/01/2016 ASSAY THYROID STIM HORMONE CPT-4: 05404 11/01/2016 ROUTINE VENIPUNCTURE CPT-4: 59023 05/13/2016 ASSAY THYROID STIM HORMONE CPT-4: 82174 05/13/2016 COMPREHEN METABOLIC PANEL CPT-4: 26120 05/13/2016 COMPLETE CBC W/AUTO DIFF WBC CPT-4: 12807 05/13/2016 A1C HPLC CPT-4: 49920 05/13/2016 FLU VACC PRSV FREE INC ANTIG 65 AND OLDER CPT-4: 14495 12/12/2015 ADMIN INFLUENZA VIRUS VAC CPT-4: G0008 12/12/2015 ROUTINE VENIPUNCTURE CPT-4: 86386 11/25/2015 ASSAY OF FREE THYROXINE CPT-4: 79298 11/25/2015 ASSAY THYROID STIM HORMONE CPT-4: 03545 11/25/2015 COMPREHEN METABOLIC PANEL CPT-4: 66405 11/25/2015 COMPLETE CBC W/AUTO DIFF WBC CPT-4: 92493 11/25/2015 LIPID PANEL CPT-4: 49715 11/25/2015 A1C HPLC CPT-4: 51704 11/25/2015 URINALYSIS NONAUTO W/O SCOPE CPT-4: 57277 05/21/2015 ROUTINE VENIPUNCTURE CPT-4: 73459 02/19/2015 METABOLIC PANEL TOTAL CA CPT-4: 73387 02/19/2015 PRESCRIP TRANSMIT VIA ERX SY CPT-4: G8553 02/19/2015 FLU VACC PRSV FREE INC ANTIG 65 AND OLDER CPT-4: 52084 12/20/2014 ADMIN INFLUENZA VIRUS VAC CPT-4: G0008 12/20/2014 URINALYSIS NONAUTO W/O SCOPE CPT-4: 05710 11/19/2014 URINE CULTURE/ COLONY COUNT CPT-4: 04542 11/19/2014 ROUTINE VENIPUNCTURE CPT-4: 11803 11/14/2014 ASSAY OF FREE THYROXINE CPT-4: 15059 11/14/2014 ASSAY THYROID STIM HORMONE CPT-4: 58901 11/14/2014 COMPREHEN METABOLIC PANEL CPT-4: 92687 11/14/2014 COMPLETE CBC W/AUTO DIFF WBC CPT-4: 26785 11/14/2014 LIPID PANEL CPT-4: 61725 11/14/2014 A1C HPLC CPT-4: 95278 11/14/2014 CERUM REMOVAL CPT-4: 10765 09/27/2014 PRESCRIP TRANSMIT VIA ERX SY CPT-4: G8553 07/11/2014 FLUZONE, 5ML (Medicare) CPT-4: Q2038 12/21/2013 ADMIN INFLUENZA VIRUS VAC CPT-4: G0008 12/21/2013 PRESCRIP TRANSMIT VIA ERX SY CPT-4: G8553 10/17/2013 PRESCRIP TRANSMIT VIA ERX SY CPT-4: G8553 09/24/2013 PRESCRIP TRANSMIT VIA ERX SY CPT-4: G8553 05/31/2013 ROUTINE VENIPUNCTURE CPT-4: 74871 03/28/2013 ASSAY OF FREE THYROXINE CPT-4: 89592 03/28/2013 ASSAY THYROID STIM HORMONE CPT-4: 96481 03/28/2013 COMPREHEN METABOLIC PANEL CPT-4: 62759 03/28/2013 COMPLETE CBC W/AUTO DIFF WBC CPT-4: 08449 03/28/2013 LIPID PANEL CPT-4: 23161 03/28/2013 A1C HPLC CPT-4: 32036 03/28/2013 VITAMIN B 12 FOLIC ACID CPT-4: 17255|55707 03/28/2013 PRESCRIP TRANSMIT VIA ERX SY CPT-4: G8553 03/26/2013 PRESCRIP TRANSMIT VIA ERX SY CPT-4: G8553 12/19/2012 FLUZONE, 5ML (Medicare) CPT-4: Q2038 11/27/2012 ADMIN INFLUENZA VIRUS VAC CPT-4: G0008 11/27/2012 PRESCRIP TRANSMIT VIA ERX SY CPT-4: G8553 10/04/2012 PRESCRIP TRANSMIT VIA ERX SY CPT-4: G8553 07/14/2012 ROUTINE VENIPUNCTURE CPT-4: 04656 02/23/2012 ASSAY OF FREE THYROXINE CPT-4: 38017 02/23/2012 ASSAY THYROID STIM HORMONE CPT-4: 79309 02/23/2012 COMPREHEN METABOLIC PANEL CPT-4: 22986 02/23/2012 COMPLETE CBC W/AUTO DIFF WBC CPT-4: 32581 02/23/2012 LIPID PANEL CPT-4: 36611 02/23/2012 A1C GLYCOSYLATED HEMOGLOBIN TEST CPT-4: 41358 012 CERUM REMOVAL CPT-4: 71385 02/22/2012 PRESCRIP TRANSMIT VIA ERX SY CPT-4: G8553 02/22/2012 PRESCRIP TRANSMIT VIA ERX SY CPT-4: G8553 12/15/2011 FLUZONE, 5ML (Medicare) CPT-4: Q2038 12/02/2011 ADMIN INFLUENZA VIRUS VAC CPT-4: G0008 12/02/2011 ASSAY, GLUCOSE, BLOOD QUANT CPT-4: 08518 09/21/2011 URINALYSIS NONAUTO W/O SCOPE CPT-4: 80029 09/16/2011 URINE CULTURE/ COLONY COUNT CPT-4: 21718 09/16/2011 ROUTINE VENIPUNCTURE CPT-4: 91551 09/15/2011 ASSAY OF FREE THYROXINE CPT-4: 81126 09/15/2011 ASSAY THYROID STIM HORMONE CPT-4: 05406 09/15/2011 COMPREHEN METABOLIC PANEL CPT-4: 03015 09/15/2011 COMPLETE CBC W/AUTO DIFF WBC CPT-4: 43121 09/15/2011 LIPID PANEL CPT-4: 17246 09/15/2011 ASSAY OF INSULIN CPT-4: 51796 09/15/2011 A1C GLYCOSYLATED HEMOGLOBIN TEST CPT-4: 76867 012 DRAIN/INJECT JOINT/BURSA CPT-4: 70653 08/16/2011 METHYLPREDNISOLONE 40 MG INJ CPT-4: J1030 08/16/2011 TRIAMCINOLONE ACET INJ NOS CPT-4: J3301 08/16/2011 PRESCRIP TRANSMIT VIA ERX SY CPT-4: G8553 08/03/2011 PRESCRIP TRANSMIT VIA ERX SY CPT-4: G8553 07/26/2011 METHYLPREDNISOLONE 40 MG INJ CPT-4: J1030 06/28/2011 DRAIN/INJECT JOINT/BURSA CPT-4: 95049 06/28/2011 TRIAMCINOLONE ACET INJ NOS CPT-4: J3301 06/28/2011 PRESCRIP TRANSMIT VIA ERX SY CPT-4: G8553 06/28/2011 ROUTINE VENIPUNCTURE CPT-4: 31755 04/01/2011 ASSAY OF FREE THYROXINE CPT-4: 31428 04/01/2011 ASSAY THYROID STIM HORMONE CPT-4: 06005 04/01/2011 COMPREHEN METABOLIC PANEL CPT-4: 36448 04/01/2011 COMPLETE CBC W/AUTO DIFF WBC CPT-4: 29662 04/01/2011 LIPID PANEL CPT-4: 85788 04/01/2011 PRESCRIP TRANSMIT VIA ERX SY CPT-4: G8553 03/31/2011 CERUM REMOVAL CPT-4: 78998 02/11/2011 PRESCRIP TRANSMIT VIA ERX SY CPT-4: G8553 02/11/2011 FLUZONE, 5ML (Medicare) CPT-4: Q2038 12/09/2010 ADMIN INFLUENZA VIRUS VAC CPT-4: G0008 12/09/2010 PRESCRIP TRANSMIT VIA ERX SY CPT-4: G8553 10/15/2010 URINALYSIS NONAUTO W/O SCOPE CPT-4: 93297 09/29/2010 URINE CULTURE/ COLONY COUNT CPT-4: 63941 09/29/2010 CUR TOBACCO NON-USER CPT-4: G8457 09/29/2010 ROUTINE VENIPUNCTURE CPT-4: 17310 07/06/2010 COMPLETE CBC W/AUTO DIFF WBC CPT-4: 80654 07/06/2010 COMPREHEN METABOLIC PANEL CPT-4: 10262 07/06/2010 LIPID PANEL CPT-4: 52294 07/06/2010 ASSAY THYROID STIM HORMONE CPT-4: 02174 07/06/2010 ASSAY OF FREE THYROXINE CPT-4: 39949 07/06/2010 PRESCRIP TRANSMIT VIA ERX SY CPT-4: G8553 07/02/2010 INJ TRIGGER POINT 1/2 MUSCL CPT-4: 89969 04/06/2010 TRIAMCINOLONE ACET INJ NOS CPT-4: J3301 04/06/2010 METHYLPREDNISOLONE 40 MG INJ CPT-4: J1030 04/06/2010 THER/PROPH/DIAG INJ SC/IM CPT-4: 71791 04/01/2010 KETOROLAC TROMETHAMINE INJ CPT-4: J1885 04/01/2010 PRESCRIP TRANSMIT VIA ERX SY CPT-4: G8553 01/22/2010 FLU VACCINE 3 YRS & > IM UP 64 CPT-4: 75184 0 ADMIN INFLUENZA VIRUS VAC CPT-4: G0008 12/10/2009 URINALYSIS NONAUTO W/O SCOPE CPT-4: 16956 12/02/2009 URINE CULTURE/ COLONY COUNT CPT-4: 76613 12/02/2009 PRESCRIP TRANSMIT VIA ERX SY CPT-4: G8553 12/02/2009 THER/PROPH/DIAG INJ SC/IM CPT-4: 86710 09/10/2009 VITAMIN B12 INJECTION CPT-4: J3420 09/10/2009 THER/PROPH/DIAG INJ SC/IM CPT-4: 18627 08/11/2009 VITAMIN B12 INJECTION CPT-4: J3420 08/11/2009 ROUTINE VENIPUNCTURE CPT-4: 71813 06/10/2009 Vital Signs Date Vital 03/20/2019 Blood [...] 1: 142/60 Code: 8480-6 BMI: 38.2 Code: 72493-0 Heart Rate 1: 48 bpm Height: 5'2" Respiratory Rate: 20 bpm SpO2: 98% Tempera ture: 36.7 (C) / 98.1 (F) Weight: 212 lbs 01/10/2018 Blood Pressure 1: 142/64 Code: 8480-6 BMI: 38.5 Code: 24690-8 Heart Rate 1: 52 bpm Height: 5'2" Respiratory Rate: 22 bpm SpO2: 96% Tempera ture: 36.1 (C) / 96.9 (F) Weight: 214 lbs 12/06/2017 Blood Pressure 1: 124/80 Code: 8480-6 BMI: 38.3 Code: 62294-8 Heart Rate 1: 68 bpm Height: 5'2" Respiratory Rate: 20 bpm Temperature: 36 .3 (C) / 97.4 (F) Weight: 213 lbs 11/22/2017 Blood Pressure 1: 132/78 Code: 8480-6 BMI: 37.6 Code: 08337-1 Heart Rate 1: 68 bpm Height: 5'2" Respiratory Rate: 20 bpm SpO2: 97% Tempera ture: 36.8 (C) / 98.2 (F) Weight: 209 lbs 10/20/2017 Blood Pressure 1: 150/76 Code: 8480-6 BMI: 38.5 Code: 24003-6 Heart Rate 1: 64 bpm Height: 5'2" Respiratory Rate: 20 bpm SpO2: 97% Tempera ture: 36.2 (C) / 97.2 (F) Weight: 214 lbs 09/27/2017 Blood Pressure 1: 122/74 Code: 8480-6 BMI: 38.2 Code: 61143-6 Heart Rate 1: 64 bpm Height: 5'2" Respiratory Rate: 18 bpm SpO2: 96% Tempera ture: 35.8 (C) / 96.4 (F) Weight: 212 lbs 08/16/2017 Blood Pressure 1: 124/78 Code: 8480-6 BMI: 37.8 Code: 85827-9 Heart Rate 1: 76 bpm Height: 5'2" Respiratory Rate: 20 bpm Temperature: 36 .8 (C) / 98.3 (F) Weight: 210 lbs 07/07/2017 Blood Pressure 1: 136/70 Code: 8480-6 BMI: 38.0 Code: 70058-3 Heart Rate 1: 68 bpm Height: 5'2" Respiratory Rate: 20 bpm SpO2: 97% Tempera ture: 36.8 (C) / 98.2 (F) Weight: 211 lbs 05/30/2017 Blood Pressure 1: 140/65 Code: 8480-6 Heart Rate 1: 75 bpm Respiratory Rate: 24 bpm SpO2: 95% Temperature: 37.0 (C) / 98.6 (F) We ight: 211 lbs 04/18/2017 Blood Pressure 1: 154/70 Code: 8480-6 BMI: 37.6 Code: 35256-9 Heart Rate 1: 76 bpm Height: 5'2" Respiratory Rate: 20 bpm SpO2: 98% Tempera ture: 36.9 (C) / 98.5 (F) Weight: 209 lbs 10/25/2016 Blood Pressure 1: 156/70 Code: 8480-6 BMI: 37.1 Code: 88814-1 Heart Rate 1: 72 bpm Height: 5'2" Respiratory Rate: 20 bpm SpO2: 97% Tempera ture: 37.0 (C) / 98.6 (F) Weight: 206 lbs 09/20/2016 Blood Pressure 1: 152/78 Code: 8480-6 BMI: 36.8 Code: 04120-4 Heart Rate 1: 78 bpm Height: 5'2" Respiratory Rate: 20 bpm SpO2: 98% Tempera ture: 36.1 (C) / 97.0 (F) Weight: 204 lbs 05/12/2016 Blood Pressure 1: 142/70 Code: 8480-6 BMI: 36.9 Code: 00271-1 Heart Rate 1: 64 bpm Height: 5'2" [...] 1: 122/64 Code: 8480-6 BMI: 39.1 Code: 56984-2 Heart Rate 1: 76 bpm Height: 5'2" Respiratory Rate: 20 bpm Temperature: 36 .8 (C) / 98.2 (F) Weight: 217 lbs 05/21/2015 Blood Pressure 1: 144/70 Code: 8480-6 BMI: 39.4 Code: 42582-2 Heart Rate 1: 76 bpm Height: 5'2" Respiratory Rate: 20 bpm Temperature: 36 .6 (C) / 97.9 (F) Weight: 219 lbs 02/19/2015 Blood Pressure 1: 152/60 Code: 8480-6 BMI: 39.6 Code: 37248-4 Heart Rate 1: 84 bpm Height: 5'2" Respiratory Rate: 20 bpm Temperature: 37 .0 (C) / 98.6 (F) Weight: 220 lbs 11/13/2014 Blood Pressure 1: 146/76 Code: 8480-6 BMI: 39.8 Code: 61358-8 Heart Rate 1: 88 bpm Height: 5'2" Respiratory Rate: 20 bpm Temperature: 37 .0 (C) / 98.6 (F) Weight: 221 lbs 09/27/2014 Blood Pressure 1: 132/70 Code: 8480-6 BMI: 39.1 Code: 13949-4 Heart Rate 1: 88 bpm Height: 5'2" Respiratory Rate: 20 bpm Temperature: 36 .4 (C) / 97.6 (F) Weight: 217 lbs 07/11/2014 Blood Pressure 1: 132/66 Code: 8480-6 BMI: 39.9 Code: 03947-8 Heart Rate 1: 72 bpm Height: 5'2" Respiratory Rate: 20 bpm Temperature: 36 .9 (C) / 98.4 (F) Weight: 218 lbs 05/23/2014 Blood Pressure 1: 136/80 Code: 8480-6 Heart Rate 1: 76 bpm Respiratory Rate: 20 bpm Temperature: 36.7 (C) / 98.0 (F) Weight: 224 lbs 03/20/2014 Blood Pressure 1: 134/78 Code: 8480-6 BMI: 39.7 Code: 58148-8 Heart Rate 1: 84 bpm Height: 5'2" Respiratory Rate: 20 bpm Temperature: 36 .7 (C) / 98.0 (F) Weight: 217 lbs 10/17/2013 Blood Pressure 1: 146/78 Code: 8480-6 BMI: 39.5 Code: 09291-0 Heart Rate 1: 82 bpm Height: 5'2" Respiratory Rate: 18 bpm Temperature: 35 .6 (C) / 96.1 (F) Weight: 216 lbs 09/24/2013 Blood Pressure 1: 134/70 Code: 8480-6 BMI: 37.9 Code: 58242-9 Heart Rate 1: 80 bpm Height: 5'3" Respiratory Rate: 20 bpm Temperature: 36 .8 (C) / 98.2 (F) Weight: 214 lbs 05/31/2013 Blood Pressure 1: 132/70 Code: 8480-6 BMI: 37.6 Code: 17437-6 Heart Rate 1: 80 bpm Height: 5'3" Respiratory Rate: 20 bpm Temperature: 36 .8 (C) / 98.3 (F) Weight: 212 lbs 03/26/2013 Blood Pressure 1: 116/74 Code: 8480-6 Heart Rate 1: 68 bpm Respiratory Rate: 20 bpm Temperature: 36.2 (C) / 97.1 (F) Weight: 212 lbs 12/19/2012 Blood Pressure 1: 132/82 Code: 8480-6 BMI: 37.4 Code: 97999-8 Heart Rate 1: 76 bpm Height: 5'3" Respiratory Rate: 20 bpm Temperature: 36 .7 (C) / 98.0 (F) Weight: 211 lbs 12/04/2012 Blood Pressure 1: 130/76 Code: 8480-6 He art Rate 1: 78 bpm 11/27/2012 Blood Pressure 1: 140/82 Code: 8480-6 BMI: 36.8 Code: 66527-6 Heart Rate 1: 66 bpm Height: 5'3" Respiratory Rate: 20 bpm Temperature: 36 .1 (C) / 96.9 (F) Weight: 208 lbs 10/04/2012 Blood Pressure 1: 138/80 Code: 8480-6 BMI: 36.4 Code: 30717-4 Heart Rate 1: 72 bpm Height: 5'4" Respiratory Rate: 20 bpm Temperature: 36 .7 (C) / 98.0 (F) Weight: 212 lbs 07/27/2012 Blood Pressure 1: 124/70 Code: 8480-6 BMI: 36.9 Code: 73190-7 Heart Rate 1: 60 bpm Height: 5'4" Temperature: 36.1 (C) / 97.0 (F) Weight: 215 lbs 07/14/2012 Blood Pressure 1: 132/86 Code: 8480-6 BMI: 36.9 Code: 85084-6 Heart Rate 1: 76 bpm Height: 5'4" Respiratory Rate: 20 bpm Temperature: 36 .8 (C) / 98.2 (F) Weight: 215 lbs 06/08/2012 Blood Pressure 1: 134/82 Code: 8480-6 BMI: 36.6 Code: 64357-8 Heart Rate 1: 72 bpm Height: 5'4" Respiratory Rate: 20 bpm Temperature: 36 .3 (C) / 97.4 (F) Weight: 213 lbs 02/22/2012 Blood Pressure 1: 142/80 Code: 8480-6 BMI: 37.1 Code: 08174-7 Heart Rate 1: 76 bpm Height: 5'4" Respiratory Rate: 20 bpm Temperature: 36 .8 (C) / 98.3 (F) Weight: 216 lbs 12/28/2011 Blood Pressure 1: 128/68 Code: 8480-6 BMI: 37.6 Code: 51159-9 Heart Rate 1: 72 bpm Height: 5'4" [...] 1: 128/78 Code: 8480-6 BMI: 38.1 Code: 46566-7 Heart Rate 1: 84 bpm Height: 5'4" Respiratory Rate: 20 bpm Temperature: 36 .9 (C) / 98.4 (F) Weight: 222 lbs 08/16/2011 Blood Pressure 1: 138/80 Code: 8480-6 BMI: 37.9 Code: 46133-9 Heart Rate 1: 74 bpm Height: 5'4" Temperature: 36.1 (C) / 97.0 (F) Weight: 221 lbs 08/03/2011 Blood Pressure 1: 126/78 Code: 8480-6 BMI: 38.4 Code: 46555-0 Heart Rate 1: 72 bpm Height: 5'4" Respiratory Rate: 20 bpm Temperature: 36 .7 (C) / 98.0 (F) Weight: 224 lbs 07/26/2011 Blood Pressure 1: 138/72 Code: 8480-6 BMI: 38.4 Code: 20319-8 Heart Rate 1: 72 bpm Height: 5'4" Respiratory Rate: 20 bpm Temperature: 36 .6 (C) / 97.9 (F) Weight: 224 lbs 06/28/2011 Blood Pressure 1: 122/78 Code: 8480-6 BMI: 38.8 Code: 64787-2 Heart Rate 1: 88 bpm Height: 5'4" Respiratory Rate: 20 bpm Temperature: 36 .6 (C) / 97.8 (F) Weight: 226 lbs 03/31/2011 Blood Pressure 1: 116/60 Code: 8480-6 BMI: 38.1 Code: 69108-2 Heart Rate 1: 92 bpm Height: 5'4" Respiratory Rate: 20 bpm Temperature: 36 .8 (C) / 98.2 (F) Weight: 222 lbs 02/11/2011 Blood Pressure 1: 118/62 Code: 8480-6 BMI: 37.9 Code: 31305-8 Heart Rate 1: 80 bpm Height: 5'4" Temperature: 36.5 (C) / 97.7 (F) Weight: 221 lbs 10/15/2010 Blood Pressure 1: 132/70 Code: 8480-6 Heart Rate 1: 84 bpm Respiratory Rate: 20 bpm Temperature: 36.7 (C) / 98.0 (F) Weight: 221 lbs 09/29/2010 Blood Pressure 1: 114/72 Code: 8480-6 BMI: 37.6 Code: 22314-6 Heart Rate 1: 76 bpm Height: 5'4" [...] 1: 120/70 Code: 8480-6 BMI: 38.3 Code: 09940-4 Heart Rate 1: 88 bpm Height: 5'5" [...] but had more that day. While at [facility] began to feel very ill and became [...] 09/27/2014 pain, limb 07/11/2014 follow up 05/23/2014 [facility] high blood pressure 03/20/2014 injection(s) 12/21/2013 flu [...] hip pain 04/01/2010 feels very draggy, f [place], BP 80/63, normally running 100's/60's chills 01/22/2010 [...] (primary) hypertension[ICD10: I10] Diagnosis: Palpitations[ICD10: R00.2] Vikki AMADOR CPT-4: 66134 03/20/2019 ([id number]) OFFICE/OUTPATIENT VISIT EST Diagnosis: Essential hypertension[ICD10: I10] Diagnosis: Palpitations[ICD10: R00.2] Diagnosis: Stress reaction[ICD10: F43.0] Vikki GUAMAN DO [facility] CPT-4: 38609 03/13/2019 ([id number]) NURSE/OUTPATIENT VISIT EST Diagnosis: Mixed hyperlipidemia[ICD10: E78.2] Vikki GUAMAN DO [facility] CPT-4: 77821 01/23/2019 ([id number]) NURSE/OUTPATIENT VISIT EST Diagnosis: FLU VACCINE[ICD10: Z23] Vikki BALL DO [facility] CPT-4: 00321 12/26/2018 ([id number]) NURSE/OUTPATIENT VISIT EST Diagnosis: Chronic kidney disease, stage 1[ICD10: N18.1] Vikki GUAMAN DO [facility] CPT-4: 08025 12/15/2018 ([id number]) OFFICE/OUTPATIENT VISIT EST Diagnosis: Acute serous otitis media, left ear[ICD10: H65.02] Jennifer GUAMAN DO [facility] CPT-4: 75301 11/07/2018 ([id number]) OFFICE/OUTPATIENT VISIT EST Diagnosis: Essential (primary) hypertension[ICD10: I10] Diagnosis: 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] Diagnosis: Hypoglycemia, unspecified[ICD10: E16.2] Diagnosis: Other fatigue[ICD10: R53.83] Diagnosis: Urinary tract infection, site not specified[ICD10: N39.0] Vikki GUAMAN DO [facility] CPT-4: 35775 08/14/2018 ([id number]) OFFICE/OUTPATIENT VISIT EST Diagnosis: Essential (primary) hypertension[ICD10: I10] Diagnosis: Gastro-esophageal reflux disease without esophagitis[ICD10: K21.9] Diagnosis: Urinary tract infection, site not specified[ICD10: N39.0] Vikki GUAMAN DO [facility] CPT-4: 87446 05/10/2018 ([id number]) OFFICE/OUTPATIENT VISIT EST Diagnosis: Gastro-esophageal reflux disease without esophagitis[ICD10: K21.9] Diagnosis: Epigastric pain[ICD10: R10.13] Vikki GUAMAN DO [facility] CPT-4: 15291 02/14/2018 ([id number]) OFFICE/OUTPATIENT VISIT EST 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] Diagnosis: Essential (primary) hypertension[ICD10: I10] Diagnosis: Generalized anxiety disorder[ICD10: F41.1] Diagnosis: Gastro-esophageal reflux disease without esophagitis[ICD10: K21.9] Vikki GUAMAN [facility] CPT-4: 45831 01/10/2018 OFFICE/OUTPATIENT VISIT EST Diagnosis: Gastro-esophageal reflux disease without esophagitis[ICD10: K21.9] Diagnosis: Palpitations[ICD10: R00.2] Diagnosis: Urinary tract infection, site not specified[ICD10: N39.0] Diagnosis: Generalized anxiety disorder[ICD10: F41.1] Vikki GUAMAN [facility] CPT-4: 58012 12/06/2017 ([id number]) NURSE/OUTPATIENT VISIT EST Diagnosis: 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] Diagnosis: Hypoglycemia, unspecified[ICD10: E16.2] Diagnosis: Dizziness and giddiness[ICD10: R42] Diagnosis: Occlusion and stenosis of bilateral carotid arteries[ICD10: I65.23] Vikki GUAMAN [facility] CPT-4: 49437 11/30/2017 OFFICE/OUTPATIENT VISIT EST Diagnosis: Epigastric pain[ICD10: R10.13] Diagnosis: Generalized anxiety disorder[ICD10: F41.1] Diagnosis: FLU VACCINE[ICD10: Z23] Vikki CID [facility] CPT-4: 12436 11/22/2017 ([id number]) OFFICE/OUTPATIENT VISIT EST Diagnosis: Essential (primary) hypertension[ICD10: I10] Diagnosis: Hypoglycemia, unspecified[ICD10: E16.2] Diagnosis: Gastro-esophageal reflux disease without esophagitis[ICD10: K21.9] Vikki GUAMAN [facility] CPT-4: 47331 10/20/2017 ([id number]) OFFICE/OUTPATIENT VISIT EST Diagnosis: Dizziness and giddiness[ICD10: R42] Jennifer GUAMAN [facility] CPT-4: 11312 09/27/2017 ([id number]) OFFICE/OUTPATIENT VISIT EST Diagnosis: Cervicalgia[ICD10: M54.2] Diagnosis: Other spondylosis with radiculopathy, cervical region[ICD10: M47.22] Vikki GUAMAN [facility] CPT-4: 88680 08/16/2017 ([id number]) OFFICE/OUTPATIENT VISIT EST Diagnosis: Hypoglycemia, unspecified[ICD10: E16.2] Diagnosis: Other spondylosis with radiculopathy, cervical region[ICD10: M47.22] Diagnosis: Vertigo of central origin, 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] Diagnosis: 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] Vikki Deniz GUAMAN [facility] CPT-4: 20127 07/07/2017 ([id number]) OFFICE/OUTPATIENT VISIT EST Diagnosis: Benign paroxysmal vertigo, bilateral[ICD10: H81.13] Diagnosis: Otalgia, bilateral[ICD10: H92.03] Jennifer GUAMAN [facility] CPT-4: 22524 05/30/2017 ([id number]) OFFICE/OUTPATIENT VISIT EST Diagnosis: Low back pain[ICD10: M54.5] Diagnosis: Radiculopathy, lumbosacral region[ICD10: M54.17] Diagnosis: Left lower quadrant pain[ICD10: R10.32] Vikki CRISOSTOMO Alyssa CID [facility] CPT-4: 20841 04/18/2017 ([id number]) OFFICE/OUTPATIENT VISIT EST Diagnosis: FLU VACCINE[ICD10: Z23] Vikki Ciscobhavya KEARNEYVIKKI Alyssa BALL [facility] CPT-4: 52766 12/10/2016 ([id number]) OFFICE/OUTPATIENT VISIT EST Diagnosis: Mixed hyperlipidemia[ICD10: E78.2] Diagnosis: Essential (primary) hypertension[ICD10: I10] 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] Diagnosis: Impaired fasting glucose[ICD10: R73.01] Diagnosis: Other fatigue[ICD10: R53.83] Vikki GUAMAN DO [facility] CPT-4: 27604 11/01/2016 ([id number]) OFFICE/OUTPATIENT VISIT EST Diagnosis: Pain in thoracic spine[ICD10: M54.6] Diagnosis: Other intervertebral disc degeneration, 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] Vikki GUAMAN DO [facility] CPT-4: 98367 10/25/2016 ([id number]) OFFICE/OUTPATIENT VISIT EST Diagnosis: Left lower quadrant pain[ICD10: R10.32] Diagnosis: Low back pain[ICD10: M54.5] Vikki CORTEZLINE Alyssa RUBI DO [facility] CPT-4: 76352 09/20/2016 ([id number]) OFFICE/OUTPATIENT VISIT EST Diagnosis: Mixed hyperlipidemia[ICD10: E78.2] Diagnosis: Essential (primary) hypertension[ICD10: I10] Diagnosis: Hypoglycemia, unspecified[ICD10: E16.2] Vikki GUAMAN [facility] CPT-4: 75597 05/13/2016 ([id number]) OFFICE/OUTPATIENT VISIT EST Diagnosis: Impaired fasting glucose[ICD10: R73.01] Diagnosis: Mastodynia[ICD10: N64.4] Diagnosis: Mixed hyperlipidemia[ICD10: E78.2] Diagnosis: Essential (primary) hypertension[ICD10: I10] Diagnosis: Other fatigue[ICD10: R53.83] Vikki Ciscofunmilayosakshi CORTEZVIKKI AlejandraSujata DENIZ [facility] CPT-4: 05606 05/12/2016 ([id number]) OFFICE/OUTPATIENT VISIT EST Diagnosis: Acute upper respiratory infection, unspecified[ICD10: J06.9] Yue CORTEZLINE Alyssa GUAMAN DO [facility] CPT-4: 66804 03/18/2016 ([id number]) OFFICE/OUTPATIENT VISIT EST Diagnosis: Acute mastoiditis without complications, right ear[ICD10: H70.001] Vikkiluther KEARNEYQUELINE AlejandraSujata DENIZ CHIN [facility] CPT-4: 09789 02/06/2016 ([id number]) OFFICE/OUTPATIENT VISIT EST Diagnosis: FLU VACCINE[ICD10: Z23] Vikki PIKE AlejandraSujata PALAK BALL [facility] CPT-4: 59196 12/12/2015 ([id number]) OFFICE/OUTPATIENT VISIT EST Diagnosis: Mixed hyperlipidemia[ICD10: E78.2] Diagnosis: Essential (primary) hypertension[ICD10: I10] 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] Diagnosis: Impaired fasting glucose[ICD10: R73.01] Vikki GUAMAN [facility] CPT-4: 76287 11/25/2015 ([id number]) OFFICE/OUTPATIENT VISIT EST Diagnosis: Constipation, unspecified[ICD10: K59.00] Vikki GUAMAN [facility] CPT-4: 56041 08/26/2015 ([id number]) OFFICE/OUTPATIENT VISIT EST Diagnosis: Essential (primary) hypertension[ICD10: I10] Diagnosis: Mixed hyperlipidemia[ICD10: E78.2] Diagnosis: Chronic kidney disease, stage 1[ICD10: N18.1] Vikki GUAMAN [facility] CPT-4: 29093 05/21/2015 ([id number]) OFFICE/OUTPATIENT VISIT EST Diagnosis: Muscle weakness (generalized)[ICD10: M62.81] Diagnosis: Dizziness and giddiness[ICD10: R42] Diagnosis: Essential (primary) hypertension[ICD10: I10] Diagnosis: History of falling[ICD10: Z91.81] Vikki Peckfunmilayosakshi GUAMAN [facility] CPT-4: 13652 02/19/2015 ([id number]) OFFICE/OUTPATIENT VISIT EST Diagnosis: FLU VACCINE[ICD10: Z23] Vikki BALL [facility] CPT-4: 19734 12/20/2014 ([id number]) OFFICE/OUTPATIENT VISIT EST Diagnosis: Acute renal failure[ICD9: 584.9] Diagnosis: POLYURIA[ICD9: 788.42] Vikki Rees [facility] CPT-4: 40870 11/19/2014 ([id number]) OFFICE/OUTPATIENT VISIT EST Diagnosis: HYPERLIPIDEMIA NEC/NOS[ICD9: 272.4] Diagnosis: HYPERTENSION[ICD9: 401.9] Diagnosis: CAD[ICD9: 414.00] Diagnosis: Hyperglycemia[ICD9: 790.29] Diagnosis: MALAISE AND FATIGUE[ICD9: 780.79] Vikki GUAMAN DO [facility] CPT-4: 70205 11/14/2014 ([id number]) OFFICE/OUTPATIENT VISIT EST Diagnosis: MALAISE AND FATIGUE[ICD9: 780.79] Diagnosis: HYPOGLYCEMIA[ICD9: 251.2] Diagnosis: Grieving[ICD9: 309.0] Diagnosis: ABDOMINAL PAIN[ICD9: 789.00] Vikki GUAMAN DO [facility] CPT-4: 72505 11/13/2014 OFFICE/OUTPATIENT VISIT EST Diagnosis: CERUMEN IMPACTION[ICD9: 380.4] Diagnosis: EUSTACHIAN TUBE DYSFUNCTION[ICD9: 381.81] Jessenia EcheverriaShemargarito GUAMAN DO [facility] CPT-4: 72318 09/27/2014 ([id number]) OFFICE/OUTPATIENT VISIT EST Diagnosis: Leg pain[ICD9: 729.5] Diagnosis: SUPERFIC PHLEBITIS-LEG[ICD9: 451.0] Vikki GUAMAN Mobui [facility] CPT-4: 80142 07/11/2014 ([id number]) OFFICE/OUTPATIENT VISIT EST Diagnosis: Thoracic back pain[ICD9: 724.1] Diagnosis: SPASM OF MUSCLE[ICD9: 728.85] Vikki GUAMAN DO [facility] CPT-4: 80005 05/23/2014 ([id number]) OFFICE/OUTPATIENT VISIT EST Diagnosis: DIZZINESS/VERTIGO[ICD9: 780.4] Diagnosis: Benign positional vertigo[ICD9: 386.11] Diagnosis: HYPERTENSION[ICD9: 401.9] Diagnosis: Suspicious nevus[ICD9: 238.2] Vikki GUAMAN DO [facility] CPT-4: 72730 03/20/2014 ([id number]) OFFICE/OUTPATIENT VISIT EST Diagnosis: FLU VACCINE[ICD10: Z23] Vikki BALL DO [facility] CPT-4: 70469 12/21/2013 OFFICE/OUTPATIENT VISIT EST Diagnosis: SINUSITIS, ACUTE[ICD9: 461.9] Diagnosis: EUSTACHIAN TUBE DYSFUNCTION[ICD9: 381.81] Jessenia GUAMAN [facility] CPT-4: 60200 10/17/2013 ([id number]) OFFICE/OUTPATIENT VISIT EST Diagnosis: DIZZINESS/VERTIGO[ICD9: 780.4] Diagnosis: HYPERTENSION[ICD9: 401.9] Vikki PECK [facility] CPT-4: 53238 09/24/2013 ([id number]) OFFICE/OUTPATIENT VISIT EST Diagnosis: HYPERTENSION[ICD9: 401.9] Diagnosis: MALAISE AND FATIGUE[ICD9: 780.79] Diagnosis: SINUSITIS, ACUTE[ICD9: 461.9] [facility] 49149 05/31/2013 ([id number]) OFFICE/OUTPATIENT VISIT EST Diagnosis: HYPERLIPIDEMIA NEC/NOS[ICD9: 272.4] Diagnosis: HYPERTENSION[ICD9: 401.9] Diagnosis: B12 DEFIC ANEMIA NEC[ICD9: 281.1] Diagnosis: HYPOGLYCEMIA[ICD9: 251.2] Vikki PECK [facility] CPT-4: 46017 03/28/2013 OFFICE/OUTPATIENT VISIT EST Diagnosis: COUGH[ICD9: 786.2] Jessenia GUAMAN [facility] CPT-4: 00104 03/26/2013 OFFICE/OUTPATIENT VISIT EST Diagnosis: COUGH[ICD9: 786.2] Diagnosis: URI, ACUTE[ICD9: 465.9] Jessenia CID [facility] CPT-4: 04088 12/19/2012 ([id number]) OFFICE/OUTPATIENT VISIT EST Diagnosis: HYPERTENSION[ICD9: 401.9] Diagnosis: CEPHALGIA[ICD9: 784.0] Diagnosis: ANXIETY STATE NOS[ICD9: 300.00] Diagnosis: FLU VACCINE[ICD9: V04.81] [facility]: 75161 11/27/2012 ([id number]) OFFICE/OUTPATIENT VISIT EST Diagnosis: DIZZINESS/VERTIGO[ICD9: 780.4] Diagnosis: SINUSITIS, ACUTE[ICD9: 461.9] Diagnosis: Benign positional vertigo[ICD9: 386.11] Vikki Ciscobhavya KEARNEY CHILANGOLUTHER AlejandraSujata DENIZ [facility] CPT-4: 09037 10/04/2012 OFFICE/OUTPATIENT VISIT EST Diagnosis: OTITIS MEDIA NOS[ICD9: 382.9] Vikki Peckfunmilayosakshi CORTEZVIKKI AlejandraSujata DENIZ [facility] CPT-4: 66786 07/27/2012 OFFICE/OUTPATIENT VISIT EST Diagnosis: Perforation of ear drum[ICD9: 384.20] Diagnosis: SINUSITIS, ACUTE[ICD9: 461.9] Vikki Peckbhavya VIKKI AlejandraSujata DENIZ [facility] CPT-4: 21820 07/14/2012 ([id number]) OFFICE/OUTPATIENT VISIT EST Diagnosis: Mastalgia[ICD9: 611.71] Vikki Ciscobhavya VIKKI AlejandraSujata [facility] CPT-4: 22344 06/08/2012 ([id number]) OFFICE/OUTPATIENT VISIT EST Diagnosis: HYPERLIPIDEMIA NEC/NOS[ICD9: 272.4] Diagnosis: HYPERTENSION[ICD9: 401.9] Diagnosis: DIZZINESS/VERTIGO[ICD9: 780.4] Diagnosis: Hyperglycemia[ICD9: 790.29] Diagnosis: MALAISE AND FATIGUE[ICD9: 780.79] Vikkigabriel Conde AlejandraSujata DENIZ [facility] CPT-4: 10888 02/23/2012 ([id number]) OFFICE/OUTPATIENT VISIT EST Diagnosis: EUSTACHIAN TUBE DYSFUNCTION[ICD9: 381.81] Diagnosis: DIZZINESS/VERTIGO[ICD9: 780.4] Diagnosis: ABDOMINAL PAIN[ICD9: 789.00] Diagnosis: GERD[ICD9: 530.81] Diagnosis: CERUMEN IMPACTION[ICD9: 380.4] Vikki Ciscobhavya PIKE Alejandra Sujata DENIZ [facility] CPT-4: 74660 02/22/2012 OFFICE/OUTPATIENT VISIT EST Diagnosis: ABDOMINAL PAIN[ICD9: 789.00] Diagnosis: DYSPEPSIA[ICD9: 536.8] Vikki Shah CISCORUBI Rees [facility] CPT-4: 76993 12/28/2011 ([id number]) OFFICE/OUTPATIENT VISIT EST Diagnosis: ABDOMINAL PAIN[ICD9: 789.00] Diagnosis: DYSPEPSIA[ICD9: 536.8] Diagnosis: IBS[ICD9: 564.1] Vikki GUAMAN [facility] CPT - 4: 46159 12/15/2011 OFFICE/OUTPATIENT VISIT EST Diagnosis: DIZZINESS/VERTIGO[ICD9: 780.4] Diagnosis: HYPOGLYCEMIA[ICD9: 251.2] Vikik MARTINEZ [facility] CPT-4: 58737 09/21/2011 ([id number]) OFFICE/OUTPATIENT VISIT EST Diagnosis: URINARY TRACT INFECTION[ICD9: 599.0] Vikki GUAMAN [facility] CPT-4: 47331 09/16/2011 ([id number]) OFFICE/OUTPATIENT VISIT EST Diagnosis: HYPERLIPIDEMIA NEC/NOS[ICD9: 272.4] Diagnosis: HYPERTENSION[ICD9: 401.9] Diagnosis: MALAISE AND FATIGUE[ICD9: 780.79] Diagnosis: DIZZINESS/VERTIGO[ICD9: 780.4] Vikki GUAMAN [facility] CPT-4: 02983 09/15/2011 ([id number]) OFFICE/OUTPATIENT VISIT EST Diagnosis: DIZZINESS/VERTIGO[ICD9: 780.4] Diagnosis: MALAISE AND FATIGUE[ICD9: 780.79] Diagnosis: HYPERTENSION[ICD9: 401.9] Vikki MARTINEZ [facility] CPT-4: 91684 09/13/2011 OFFICE/OUTPATIENT VISIT EST Diagnosis: LUMB/LUMBOSAC DISC DEGEN[ICD9: 722.52] Diagnosis: Radiculopathy of leg[ICD9: 724.4] Diagnosis: 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] Diagnosis: SPINAL ENTHESOPATHY[ICD9: 720.1] Vikki GUAMAN [facility] CPT-4: 79828 08/16/2011 ([id number]) OFFICE/OUTPATIENT VISIT EST Diagnosis: PAIN, LOWER BACK[ICD9: 724.2] Diagnosis: SPASM OF MUSCLE[ICD9: 728.85] Diagnosis: SCIATICA[ICD9: 724.3] Diagnosis: Lumbar degenerative disc disease[ICD9: 722.52] Vikki GUAMAN DO [facility] CPT-4: 16699 08/03/2011 ([id number]) OFFICE/OUTPATIENT VISIT EST Diagnosis: PAIN IN THORACIC SPINE[ICD9: 724.1] Diagnosis: SPASM OF MUSCLE[ICD9: 728.85] Vikki GUAMAN DO [facility] CPT-4: 95439 07/26/2011 ([id number]) OFFICE/OUTPATIENT VISIT EST Diagnosis: PAIN, LOWER BACK[ICD9: 724.2] Diagnosis: SPASM OF MUSCLE[ICD9: 728.85] Diagnosis: Sacroiliac dysfunction[ICD9: 739.4] Diagnosis: Lumbar degenerative disc disease[ICD9: 722.52] Vikki GUAMAN DO [facility] CPT-4: 02189 06/28/2011 OFFICE/OUTPATIENT VISIT EST Diagnosis: MALAISE AND FATIGUE[ICD9: 780.79] Diagnosis: HYPOTENSION[ICD9: 458.9] Diagnosis: CAD[ICD9: 414.00] Vikki GUAMAN DO [facility] CPT-4: 26041 03/31/2011 OFFICE/OUTPATIENT VISIT EST Diagnosis: SINUSITIS, ACUTE[ICD9: 461.9] Diagnosis: PHARYNGITIS, ACUTE[ICD9: 462] Diagnosis: CERUMEN IMPACTION[ICD9: 380.4] Vikki GUAMAN DO [facility] CPT-4: 50314 02/11/2011 OFFICE/OUTPATIENT VISIT EST Diagnosis: PAIN IN THORACIC SPINE[ICD9: 724.1] Diagnosis: GERD[ICD9: 530.81] Diagnosis: DIZZINESS/VERTIGO[ICD9: 780.4] Vikki GUAMAN DO [facility] CPT-4: 70295 10/15/2010 OFFICE/OUTPATIENT VISIT EST Vikki MARTINEZ DO [facility] CPT- 4: 57045 09/29/2010 ([id number]) OFFICE/OUTPATIENT VISIT EST Vikki GUAMAN DO [facility] CPT-4: 12784 07/02/2010 ([id number]) OFFICE/OUTPATIENT VISIT, EST Diagnosis: PAIN, LOWER BACK[ICD9: 724.2] Vikki PIKE SSujata [facility] CPT-4: 88118 04/06/2010 ([id number]) OFFICE/OUTPATIENT VISIT, EST Vikki CRISOSTOMO S. [facility] CPT-4: 97858 04/01/2010 ([id number]) OFFICE/OUTPATIENT VISIT, EST Vikki CRISOSTOMO [facility]. [facility] CPT-4: 60532 01/22/2010 ([id number]) OFFICE/OUTPATIENT VISIT, EST Vikki KEELINE S. [facility] CPT-4: 50006 12/02/2009 ([id number]) OFFICE/OUTPATIENT VISIT, EST Vikki CRISOSTOMO S. [facility] CPT-4: 42687 10/21/2009 ([id number]) OFFICE/OUTPATIENT VISIT, EST Vikki CRISOSTOMO [facility]. [facility] CPT-4: 41406 09/10/2009 ([id number]) OFFICE/OUTPATIENT VISIT, EST Vikki CRISOSTOMO [facility] CPT-4: 26990 08/11/2009 ([id number]) OFFICE/OUTPATIENT VISIT, EST Vikki CRISOSTOMO [facility]. [facility] CPT-4: 63524 06/09/2009 Plan of Care Planned Activity Notes Codes Status Date Visit Diagnosis Plan: Essential (primary) hypertension Discussion: Improving with higher dose of metoprolol Recheck 2weeks ICD-9 : 401.9 ICD-10 : I10 03/20/2019 Visit Diagnosis Plan: Palpitations Discussion: Continu e higher dose of metoprolol ICD-9 : 785.1 ICD-10 : R00.2 03/20/2019 Appointment: Vik[facility]aman [facility]el[facility] [phone] [facility] 03/13/2019--moved up to 03/13/19 at 4pm (km) [place] NC[place] 03/15/2019 Visit Diagnosis Plan: Essential hypertension Discussio n: Increase metoprolol to 25mg q AM and 50mg po q pM Recheck 1 week ICD-9 : 401.9 ICD-10 : I10 03/13/2019 Visit Diagnosis Plan: Palpitations Discussion: Check C BC, CMP, TSH ICD-9 : 785.1 ICD-10 : R00.2 03/13/2019 Appointment: Vikki Guaman WPtel: [address] [place] [address] BP CHECK 03/13/2019 Appointment: Vikki Guaman WPtel: [address] [place] [address] ACUTE ILLNESS 03/13/2019 Patient Education: metoprolol tartrate- [employer] [facility] [id number] [email or web address]/samplemd/resources/getResource/61/[email or web address] Completed 03/13/2019 Care Plan: X-RAY EXAM NECK SPINE 4/5VWS LOINC : 11081-1 Pending 03/13/2019 Care Plan: X-RAY EXAM THORAC SPINE4/>VW LOINC : 78361-0 Pending 03/13/2019 Appointment: Vikki Guaman WPtel: [address] [place] [address] LAB 01/23/2019 Appointment: Vikki Guaman WPtel: [address] [place], [place] [phone] [place] INJECTION 12/26/2018 Patient Education: INFLUENZA VACCINE [facility] Completed 12/26/2018 Appointment: Vikki Guaman WPtel: [address] [place], [place] [phone] [place] LAB 12/15/2018 Visit Diagnosis Plan: Acute [...] : H65.02 11/07/2018 Appointment: Jennifer Rosario [address] [place], [place] [id number] ACUTE ILLNESS 11/07/2018 Visit Diagnosis Plan: Hypoglycemia, unspecified Discus james: Monitor BS At least 6 small meals a day each with protein ICD-9 : 251.2 ICD-10 : E16.2 08/14/2018 Visit Diagnosis Plan: Essential (primary) hypertension Discussion: Stable Check CMP ICD-9 : 401.9 ICD-10 : I10 08/14/2018 Visit Diagnosis Plan: Other fatigue Discussion: Check CBC, TSH ICD-9 : 780.79 ICD-10 : R53.83 08/14/2018 Visit Diagnosis Plan: Urinary tract infection, site no t specified Discussion: Started an old abx prescription ICD-9 : 599.0 ICD-10 : N39.0 08/14/2018 Appointment: Vikki Guaman WPtel: [address] [place], [place] [phone] US FOLLOW UP 08/14/2018 Visit Diagnosis Plan: Urinary [...] : I10 05/10/2018 Appointment: Vikki Guaman WPtel: [address] [place], [place] [id number] [place] FOLLOW UP 05/10/2018 Patient Education: metoprolol tartrate- [employer] [facility] [id number] [email or web address] [email or web address]/samplemd/resources/getResource/61/683p9e95-0cvx-[email or web address] Completed 05/10/2018 Appointment: Vikki Guaman WPtel: [address] [place], [place] [id number] [place] CANCELED 04/21/2018 Visit Diagnosis Plan: Gastro-esophageal reflux disease without esophagitis Discussion: Continue protonix and carafate Proceed with updated EGD ICD-9 : 530.81 ICD-10 : K21.9 02/14/2018 Visit Diagnosis Plan: Epigastric pain Discussion: [facility] CT abdomen/pelvis due to ongoing abdominal pain ICD-9 : 789.06 ICD-10 : R10.13 02/14/2018 Appointment: Vikki Guaman WPtel: [facility] US FOLLOW UP 02/14/2018 Care Plan: CT PELVIS W/O DYE LOINC : 361 08-9 Pending 02/14/2018 Care Plan: CT ABDOMEN W/O DYE LOINC : 36 103-0 Pending 02/14/2018 Care Plan: Referral Order SNOMED-CT : 30 [id number] Pending 02/14/2018 Visit Diagnosis Plan: Atherosclerotic he art disease of [place] coronary artery without angina pectoris Discussion: S/P cardiac cath--doing medi pauline management with imdur and metoprolol increased Has fwup with cardiology next week Discussed cardiac rehab ICD-9 : 414.00 ICD-10 : I25.10 01/10/2018 Visit Diagnosis Plan: Gastro-esophageal reflux disease without esophagitis Discussion: Continue protonix at BID dosing and carafate BID Follow Up: 2 months ICD-9 : 530.81 ICD-10 : K21.9 01/10/2018 Visit Diagnosis Plan: Essential (primary) hypertension Discussion: Stable ICD-9 : 401.9 ICD-10 : I10 01/10/2018 Visit Diagnosis Plan: Generalized anxiety disorder Dis cussion: Stable ICD-9 : 300.00 ICD-10 : F41.1 01/10/2018 Appointment: Vikki Guaman WPtel: [facility] US FOLLOW UP 01/10/2018 Visit Diagnosis Plan: [...] 12/06/2017 Visit Diagnosis Plan: Palpitations Discussion: Poncho bobofreya going to schedule Lexiscan ICD-9 : 785.1 ICD-10 : R00.2 12/06/2017 Visit Diagnosis Plan: Urinary tract infection, site no t specified Discussion: Reculture urine ICD-9 : 599.0 ICD-10 : N39.0 12/06/2017 Appointment: Vikki Guaman WPtel: [address] [place] [address] FOLLOW UP 12/06/2017 Patient Education: Patient Medication Summary Completed 12/06/2017 Appointment: Vikki Guaman WPtel: [address] [place] [address] LAB 11/30/2017 Patient Education: Patient Medication Summary [...] : R10.13 11/22/2017 Appointment: Vikki Guaman WPtel: [address] [place] [address] FOLLOW UP 11/22/2017 Patient Education: Patient Medication [...] K21.9 10/20/2017 Appointment: Vikki Guaman WPtel: [phone] ACUTE ILLNESS 10/20/2017 Patient Education: Patient Medication Summary Completed 10/20/2017 Visit Diagnosis Plan: Dizziness and giddiness Discussi on: blood work to be completed in office including cmp, cbc, troponin to rule out glucose intolerance, infection, dehydration. 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 brown's office. will have front office make appt. patient has carotid doppler annually. ICD-9 : 780.4 ICD-10 : R42 09/27/2017 Appointment: Jennifer Rosario [address] [place] [address] ACUTE ILLNESS 09/27/2017 Patient Education: Patient Medication Summary Completed 09/27/2017 Visit Diagnosis Plan: Cervicalgia Discussion: Complete course of PT since symptoms improved Continue stretching exercises Notify if symptoms return or worsen ICD-9 : 723.1 ICD-10 : M54.2 08/16/2017 Appointment: Vikki Guaman WPtel: [facility] [address] FOLLOW UP 08/16/2017 Patient Education: Patient Medication [...] E16.2 07/07/2017 Appointment: Vikki Guaman WPtel: [phone] [facility] 07/07/2017 Patient Education: Patient Medication Summary Completed 07/07/2017 Care Plan: MRI NECK SPINE W/O DYE [facility] : 59379-5 Pending 07/07/2017 Visit Diagnosis Plan: Benign paroxysmal [...] ICD-10 : H92.03 05/30/2017 Appointment: Jennifer Rosario [address] [place] [address] ACUTE ILLNESS 05/30/2017 Patient Education: Patient Medication [...] : R10.32 04/18/2017 Appointment: Vikki Guaman WPtel: [address] [place] [address] ACUTE ILLNESS 04/18/2017 Patient Education: Patient Medication Summary Completed 04/18/2017 Appointment: Vikki Guaman WPtel: [address] [place] [address] US INJECTION 12/10/2016 Patient Education: Patient Medication Summary Completed 12/10/2016 Appointment: Vikki Guaman WPtel: [address] [place], [place] [phone] [place] LAB 11/01/2016 Patient Education: Patient Medication [...] : M54.6 10/25/2016 Appointment: Vikki Guaman WPtel: [address] [place], [place] [phone] FOLLOW UP 10/25/2016 Patient Education: Patient Medication [...] : M54.5 09/20/2016 Appointment: Vikki Guaman WPtel: [address] [place], [place] [phone] ACUTE ILLNESS 09/20/2016 Patient Education: Patient Medication Summary Completed 09/20/2016 Appointment: Vikki Guaman WPtel: [address] [place], [place] [phone] US LAB 05/13/2016 Patient Education: Patient Medication [...] 780.79 ICD-10 : R53.83 05/12/2016 Appointment: Vikki Guamantel: [address] [place] [address] 3/ confirmed `sl ACUTE ILLNESS 05/12/2016 Patient Education: Patient Medication Summary Completed 05/12/2016 Care Plan: MAMMOGRAM SCREENING LOINC : 2 6347-5 Pending 05/12/2016 Visit Diagnosis Plan: Acute upper respiratory infectio n, unspecified Discussion: Exam is reassuring Likely viral illness Supportive care reviewed and encouraged Follow up PRN ICD-9 : 465.9 ICD-10 : J06.9 03/18/2016 Appointment: Yue Moya [address] [place] [address] ACUTE ILLNESS 03/18/2016 Patient Education: Patient Medication Summary Completed 03/18/2016 Visit Plan: Supportive care. Rest, Fluid s, Tylenol/Motrin prn fever or bodyaches. Notify if worsening symptoms. 02/06/2016 Appointment: Vikki Guamantel: [address] [place] [address] ACUTE ILLNESS 02/06/2016 Patient Education: Patient Medication Summary Completed 02/06/2016 Appointment: Vikki Guaman WPtel: [address] [place] [address] US INJECTION 12/12/2015 Patient Education: Patient Medication Summary Completed 12/12/2015 Appointment: Vikki Guaman WPtel: [address] [place] [address] LAB 11/25/2015 Patient Education: Patient Medication Summary Completed 11/25/2015 Visit Plan: Add miralax daily Use daily probiotic and metamucil and push fluids Notify if worsens/persists 08/26/2015 Appointment: Vikki Guaman WPtel: [phone] [facility] 08/25/15 confirmed ~sl ACUTE ILLNESS 08/26/2015 Patient Education: Patient Medication Summary Completed 08/26/2015 Visit Plan: No NSAIDs Kidney function di scussed Discussed hydration Monitor lab every 4months so will check CMP, HbA1C next month 05/21/2015 Appointment: Vikki Guaman WPtel: [address] [place] [address] 05/19 confirmed ~sl ACUTE ILLNESS 05/21/2015 Patient Education: Patient Medication Summary Completed 05/21/2015 Visit Plan: Vestibular exercises Refill flonase Strict low Na diet--discussed that needs to read labels Rx for walker with chair given due to muscle weakness/unsteadiness Has carotids and abdominal aorta and legs checked in March Check Chem 7 02/19/2015 Appointment: Vikki Guaman WPtel: [address] [place] [address] 02/18/15 appt confirmed cn FOLLOW UP 02/19 Patient Education: Patient Medication Summary Completed 02/19/2015 Patient Education: Vertigo Completed 1 04/22/2014 Appointment: Vikki Guaman WPtel: [address] [place], [place] [phone] US INJECTION 12/20/2014 Patient Education: Patient Medication Summary Completed 12/20/2014 Appointment: Vikki Guaman WPtel: [address] [place], [place] [phone] US UA 11/19/2014 Patient Education: Patient Medication Summary Completed 11/19/2014 Referral: Edy Cheek WPtel: #1 [facility] Katerina [id number] US Referral Completed 11/18/2014 Appointment: Vikki Guaman WPtel: [address] [place], [place] [phone] [place] LAB 11/14/2014 Patient Education: Patient Medication Summary Completed 11/14/2014 Visit Plan: Check CMP, CBC, TSH, Free T4 , B12, Lipids, HbA1C Discussed 6 small meals a day each with protein Would likely benefit from antidepressant Update colonoscopy 11/13/2014 Appointment: Vikki Guaman WPtel: [address] [place], [place] [phone] 11/12/14 confirmed ACUTE ILLNESS 11/13/2014 Patient Education: Patient Medication Summary Completed 11/13/2014 Visit Plan: Cerumen flush with warm wate r and peroxide - good results Resume Nasonex nasal spray daily Recommended Debrox earwax removal drops 09/27/2014 Appointment: Jessenia Francis WPtel: [address] [place] [address] ACUTE ILLNESS 09/27/2014 Patient Education: Patient Medication Summary Completed 09/27/2014 Visit Plan: Continue aspirin daily Add m eloxicam for 1week Elevate and Ice Call on Tuesday07/11/2014 Appointment: Vikki Guaman WPtel: [address] [place] [address] ACUTE ILLNESS 07/11/2014 Patient Education: Patient Medication Summary Completed 07/11/2014 Visit Plan: Been using baclofen at [facility] and has helped some PT for next 2-4weeks 05/23/2014 Appointment: Vikki Guaman WPtel: [address] [place], [place] [phone] Follow Up 05/23/2014 Patient Education: Patient Medication Summary Completed 05/23/2014 Appointment: Vikki Guaman WPtel: [address] [place], [place] [phone] LAB 05/10/2014 Appointment: Vikki Guaman WPtel: [address] [place] [address] feeling better, weather - FOLLOW UP 04/07 Referral: Edy Cheek WPtel: [facility]1 [facility]66[facility] Referral Appointment Requested 04/03/2014 Visit Plan: Continue exercise and curren t meds See surgery for removal of right arm lesion 03/20/2014 Appointment: Vikki Guaman WPtel: [address] [place] [address] FOLLOW UP 03/20/2014 Patient Education: Patient Medication Summary Completed 03/20/2014 Appointment: Vikki Guaman WPtel: [address] [place], [place] [phone] US INJECTION 12/21/2013 Patient Education: Patient Medication Summary Completed 12/21/2013 Appointment: Jessenia Francis WPtel: [address] [place] [address] ACUTE ILLNESS 10/17/2013 Patient Education: Patient Medication Summary Completed 10/17/2013 Visit Plan: Discussed that likely lumbar etiology for leg weakness Will change amlodopine to low dose dyazide and see if helps legs and inner ear 09/24/2013 Appointment: Vikki Guaman WPtel: [address] [place] [address] FOLLOW UP 09/24/2013 Patient Education: Patient Medication Summary Completed 09/24/2013 Visit Plan: Ceftin and continue claritin /flonase Decrease amlodopine to 2.5mg q HS until fwup with Card due to weakness 05/31/2013 Appointment: Vikki Guaman WPtel: [address] [place] [address] ACUTE ILLNESS 05/31/2013 Patient Education: Patient Medication Summary Completed 05/31/2013 Appointment: Vikki Guaman WPtel: [address] [place], [place] [phone] LAB 03/28/2013 Patient Education: Patient Medication Summary Completed 03/28/2013 Appointment: Jessenia Francis WPtel: [address] [place], [place] [id number] ACUTE ILLNESS 03/26/2013 Patient Education: Patient Medication Summary Completed 03/26/2013 Visit Plan: Supportive care. Rest, Fluid s, Tylenol prn fever or bodyaches. Notify if worsening symptoms. Ceftin 12/19/2012 Appointment: Jessenia Francis WPtel: [address] [place] [address] ACUTE ILLNESS 12/19/2012 Patient Education: Patient Medication Summary Completed 12/19/2012 Appointment: Vikki Guaman WPtel: [address] [place] [address] BP CHECK 12/04/2012 Patient Education: Patient Medication Summary Completed 12/04/2012 Appointment: Vikki Guaman WPtel: [address] [place] [address] ER Follow UP 11/27/2012 Patient Education: Patient Medication Summary Completed 11/27/2012 Visit Plan: Restart flonase BID Use mecl izine 25mg q HS Vestibular exercises Claritin 10mg q AM See ENT if doesn't resolve 10/04/2012 Appointment: Vikki Guaman WPtel: [address] [place] [address] ACUTE ILLNESS 10/04/2012 Patient Education: Patient Medication Summary Completed 10/04/2012 Visit Plan: Will continue to observe 07/27/2012 Appointment: Vikki Guaman WPtel: [address] [place] [address] FOLLOW UP 07/27/2012 Patient Education: Patient Medication [...] ear recheck. 07/14/2012 Appointment: Evelyn Santos WPtel: [address] [place] [address] ACUTE ILLNESS 07/14/2012 Patient Education: Patient Medication Summary Completed 07/14/2012 Visit Plan: Decrease caffeine intake Kristin ck Bilateral Mammogram with US of left breast 06/08/2012 Appointment: Vikki Guaman WPtel: [address] [place] [address] ACUTE ILLNESS 06/08/2012 Patient Education: Patient Medication Summary Completed 06/08/2012 Appointment: Alisia Campbell WPtel: [address] [place] [address] appt scheduled 04/06 ACUTE ILLNESS 04/10/2012 Appointment: Vikki Guaman WPtel: [address] [place], [place] [id number] 02/23/2012 Patient Education: Patient Medication Summary Completed 02/23/2012 Visit Plan: Continue off carafate and se e how does Continue probiotic Add Vestibular exercises and use meclizine prn Continue Nasonex Check fasting lab including CMP, Lipids, CBC, TSH, Free T4, HbA1C 02/22/2012 Appointment: Vikki Guaman WPtel: [address] [place] [address] FOLLOW UP 02/22/2012 Patient Education: Patient Medication Summary Completed 02/22/2012 Visit Plan: Continue carafate for 4more weeks at current dose then decrease to BID for 2wks then q HS 12/28/2011 Appointment: Vikki Guaman WPtel: [address] [place], [place] [id number] FOLLOW UP 12/28/2011 Patient Education: Patient Medication Summary Completed 12/28/2011 Visit Plan: Continue omeprazole Add Judi fate 1gm po q AC Add daily probiotic 12/15/2011 Appointment: Vikki Guaman WPtel: [address] [place] [address] ACUTE ILLNESS 12/15/2011 Patient Education: Patient Medication Summary Completed 12/15/2011 Appointment: Vikki Guaman WPtel: [address] [place], [place] [phone] US INJECTION 12/02/2011 Patient Education: Patient Medication Summary Completed 12/02/2011 Visit Plan: Diabetic Diet Accuchecks BID alternating times Hold onglyza and Januvia for now and continue diet and exercise and weight loss and lana BAPTISTE Discussed hypoglycemia and snack of peanut butter and crackers with juice or milk 09/21/2011 Appointment: Vikki Guamantel: [address] [place] [address] WORK IN 09/21/2011 Patient Education: Patient Medication Summary Completed 09/21/2011 Appointment: Vikki Guaman WPtel: [address] [place] [address] 09/16/2011 Patient Education: Patient Medication Summary Completed 09/16/2011 Appointment: Vikki Guaman WPtel: [address] [place] [address] LAB 09/15/2011 Patient Education: Patient Medication Summary Completed 09/15/2011 Appointment: Vikki Guaman WPtel: [address] [place] [address] ACUTE ILLNESS 09/13/2011 Patient Education: Patient Medication Summary Completed 09/13/2011 Visit Plan: Injection to Right SI joint as above Pt will call in 3 days on pain Has PT starting in 2wks. 08/16/2011 Appointment: Vikki Guaman WPtel: [address] [place] [address] ACUTE ILLNESS 08/16/2011 Patient Education: Patient Medication Summary Completed 08/16/2011 Visit Plan: OMT done Start PT May need u pdated MRI if need to consider epidural Prednisone 08/03/2011 Appointment: Vikki Guaman WPtel: [address] [place] [address] OMT 08/03/2011 Patient Education: Patient Medication Summary Completed 08/03/2011 Visit Plan: Flexeril and Vimovo OMT done Daily stretches 07/26/2011 Appointment: Vikki Guaman WPtel: [address] [place], [place] [phone] ACUTE ILLNESS 07/26/2011 Patient Education: Patient Medication Summary Completed 07/26/2011 Visit Plan: OMT done Daily stretches Roque st heat or biofreeze Right SI joint injection Call in 1week Vimovo BID 06/28/2011 Appointment: Vikki Guaman WPtel: [address] [place], [place] [id number] ACUTE ILLNESS 06/28/2011 Patient Education: Patient Medication Summary Completed 06/28/2011 Appointment: Vikki Guaman WPtel: [address] [place], [place] [phone] [place] LAB 04/01/2011 Patient Education: Patient Medication Summary Completed 04/01/2011 Visit Plan: Decrease amlodopine to 1.25m g daily Schedule with Cardiology Fasting lab in AM 03/31/2011 Appointment: Vikki Guaman WPtel: [address] [place] [address] ACUTE ILLNESS 03/31/2011 Patient Education: Patient Medication Summary Completed 03/31/2011 Visit Plan: Saline nasal flushes prn. Ty lenol/Motrin prn headache. Notify if persists/symptoms worsening. Cerumen removal from ears as above 02/11/2011 Appointment: Vikki Guaman WPtel: [address] [place], [place] [phone] ACUTE ILLNESS 02/11/2011 Patient Education: Patient Medication Summary Completed 02/11/2011 Appointment: Vikki Guaman WPtel: [address] [place], [place] [phone] [place] INJECTION 12/09/2010 Patient Education: Patient Medication Summary Completed 12/09/2010 Visit Plan: Continue vimovo for 1more we ek Increase Omeprazole to BID for 1mo then resume QD if stomach improved Vestibular exercises with meclizine q HS for next week 10/15/2010 Appointment: Vikki Guaman WPtel: [address] [place] [address] FOLLOW UP 10/15/2010 Patient Education: Patient Medication Summary Completed 10/15/2010 Appointment: Vikki Guaman WPtel: [address] [place] [address] ACUTE ILLNESS 09/29/2010 Patient Education: Patient Medication Summary Completed 09/29/2010 Appointment: Vikki Guaman WPtel: [address] [place] [address] LAB 07/06/2010 Patient Education: Patient Medication Summary Completed 07/06/2010 Visit Plan: Saline nasal flushes prn. Ty lenol/Motrin prn headache. Notify if persists/symptoms worsening. Add Veramyst Increase Omeprazole to 20mg po BID 07/02/2010 Appointment: Vikki Guaman WPtel: [address] [place] [address] ACUTE ILLNESS 07/02/2010 Patient Education: Patient Medication Summary Completed 07/02/2010 Appointment: Vikki Guaman WPtel: [address] [place] [address] FOLLOW UP 04/06/2010 Patient Education: Patient Medication Summary Completed 04/06/2010 Appointment: Vikki Guaman WPtel: [address] [place] [address] ACUTE ILLNESS 04/01/2010 Patient Education: Patient Medication Summary Completed 04/01/2010 Visit Plan: Nasocourt sample given. Pt. will notify if symptoms are worse on Tuesday. 01/22/2010 Appointment: Alisia Campbell WPtel: [address] [place] [address] ACUTE ILLNESS 01/22/2010 Patient Education: Patient Medication Summary Completed 01/22/2010 Appointment: Vikki Guaman WPtel: [address] [place], [place] [phone] [place] INJECTION 12/10/2009 Patient Education: Patient Medication Summary Completed 12/10/2009 Appointment: Vikki Guaman WPtel: [address] [place] [address] FOLLOW UP 12/02/2009 Patient Education: Patient Medication Summary Completed 12/02/2009 Patient Education: Lexapro Completed 0 12/02/2009 Visit Plan: May proceed with hiatal ryan ia repair per Card. so will contact Dr. Mariscal's office to proceed with surgery Trial of Lexapro 5mg QD plus use xanax prn 10/21/2009 Appointment: Vikki Guaman WPtel: [address] [place] [address] FOLLOW UP 10/21/2009 Patient Education: Patient Medication Summary Completed 10/21/2009 Visit Plan: B12 given Cont oral B12 and iron Fwup 1mo for B12 Proceed with hiatal hernia repair once card clearance 09/10/2009 Appointment: Vikki Guaman WPtel: [address] [place] [address] FOLLOW UP 09/10/2009 Patient Education: Patient Medication Summary Completed 09/10/2009 Appointment: Vikki Guaman WPtel: [address] [place] [address] FOLLOW UP 08/11/2009 Patient Education: Patient Medication Summary Completed 08/11/2009 Appointment: Vikki Guaman WPtel: [address] [place] [address] [place] LAB 06/10/2009 Patient Education: Patient Medication Summary Completed 06/10/2009 Visit Plan: Check fasting lab in AM--CMP ,Lipids, CBC, Vit D, TSH,FreeT4, B12 06/09/2009 Appointment: Vikki Guaman WPtel: [address] [place] [address] [place] FOLLOW UP 06/09/2009 Patient Education: Patient Medication Summary Completed 06/09/2009 Referral: Edy Cheek WPtel: [address] [place] [phone] [place] Referral Appointment Requested Referral: Edy Cheek WPtel: [facility] [id number] [place] Referral Initiated Instructions Comment . Supportive care. [...] repair per Card. so will contact Dr. Beckenhauer's office to proceed with surgery Trial of [...]
--- OUTSIDE RECORDS SUMMARY | 2019-04-25 20:27 | XMS REPORT | CCD ---
Author Author Evelyne Guaman D.O. 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 PP Unavailable CCM Unavailable Summary Purpose Interface Exchange Insurance Providers Payer name Policy type / Coverage type Covered republican ID Effective Begin Date Effective End Date WPS MEDICARE PART B [place] Medicare Part B [id number] 2017 Unknown Aetna [facility] Medicare Part B [id number] Unknown Family history Father Diagnosis Age At Onset Heart disease Unknown Mother Diagnosis Age At Onset Heart disease Unknown Cancer Unknown Social History Social History Element Codes Description Effective Dates Tobacco history SNOMED CT: 042124068 Never smoker 09/29/2010 Marital status Unknown Single [...] R10.13 11/22/2017 Active Atherosclerotic heart disease of [place] coronary arter y without angina pectoris [...] Instructions metoprolol tartrate 25 mg tablet RxNorm: 556971 1 Table t(s) Oral QAM and two tablets (50mg) in the evening 03/20/2019 06/18/2019 Active Flonase Allergy Relief 50 mcg/actuation nasal spray,suspensi on RxNorm: 7833357 2 [place] Nasal every night at bedtime 03/13/2019 03/13/2019 Inactive simvastatin 40 mg tablet RxNorm: 489983 1 Tablet(s) PO QD 01/22/2019 04/21/2019 Active omeprazole 40 mg capsule,delayed release RxNorm: 613479 1 Capsu le(s) Oral QD 01/10/2019 07/08/2019 Active Xanax 0.25 mg tablet RxNorm: 843469 TAKE 1 TABLET BY MOUTH TWIC E DAILY 01/02/2019 No Stop Date Active omeprazole 40 mg capsule,delayed release RxNorm: 440247 1 Capsu le(s) PO QD 12/11/2018 01/09/2019 Inactive metoprolol tartrate 25 mg tablet RxNorm: 934656 1 Tablet(s) PO BID 11/20/2018 03/19/2019 Inactive omeprazole 40 mg capsule,delayed release RxNorm: 026844 1 Capsu le(s) PO QD 11/13/2018 12/10/2018 Inactive Flonase Allergy Relief 50 mcg/actuation nasal spray,suspensi on RxNorm: 7733597 2 [place] NASAL QHS 11/07/2018 03/12/2019 Inactive simvastatin 40 mg tablet RxNorm: 071239 1 Tablet(s) PO QD 10/23/2018 01/20/2019 Inactive simvastatin 40 mg tablet RxNorm: 720328 1 Tablet(s) PO QD 07/24/2018 10/21/2018 Inactive omeprazole 40 mg capsule,delayed release RxNorm: 472192 1 Capsu le(s) PO QD 07/13/2018 11/09/2018 Inactive simvastatin 40 mg tablet RxNorm: 201018 1 Tablet(s) PO QD 06/13/2018 07/12/2018 Inactive omeprazole 40 mg capsule,delayed release RxNorm: 594524 1 Capsu le(s) PO QD 06/13/2018 07/12/2018 Inactive Bactrim DS 800 mg-160 mg tablet RxNorm: 348689 1 Tablet(s) PO BID 0 05/12/2018 05/18/2018 Inactive Bactrim DS 800 mg-160 mg tablet RxNorm: 504800 1 Tablet(s) PO BID 0 05/12/2018 05/11/2018 Inactive Macrobid 100 mg capsule RxNorm: 228831 1 Capsule(s) PO BID 05/11/1905/16/2018 Inactive metoprolol tartrate 25 mg tablet RxNorm: 264397 1 Tablet(s) PO BID 05/10/2018 11/05/2018 Inactive Xanax 0.25 mg tablet RxNorm: 752300 TAKE 1 TABLET BY MOUTH TWIC E DAILY 02/16/2018 01/01/2019 Inactive Xanax 0.25 mg tablet RxNorm: 846915 1 Tablet(s) PO BID 02/14/2018 Inactive Protonix 40 mg tablet,delayed release RxNorm: 181697 1 Tablet(s) PO BID for stomach--replaces omeprazole 01/10/2018 05/09/2018 Inactive Carafate 1 gram tablet RxNorm: 805250 1 Tablet(s) PO AC & HS 201705/09/2018 Inactive Xanax 0.25 mg tablet RxNorm: 892230 1 Tablet(s) PO BID 01/03/201812/2017 Inactive Bactrim DS 800 mg-160 mg tablet RxNorm: 407997 1 Tablet(s) PO BID 1 12/12/2017 Inactive Bactrim DS 800 mg-160 mg tablet RxNorm: 502213 1 Tablet(s) PO BID 1 12/07/2017 Inactive Carafate 1 gram tablet RxNorm: 448548 1 Tablet(s) PO AC & HS 201712/21/2017 Inactive Protonix 40 mg tablet,delayed release RxNorm: 659534 1 Tablet(s) PO BID for stomach--replaces omeprazole 11/22/2017 01/09/2018 Inactive Protonix 40 mg tablet,delayed release RxNorm: 340250 1 Tablet(s) PO BID for stomach--replaces omeprazole 10/20/2017 11/21/2017 Inactive fluticasone 50 mcg/actuation nasal spray,suspension RxNorm: 4231269 2 [place] NASAL QD to each nostril 07/07/2017 08/13/2018 Inactive Nasonex 50 mcg/actuation [place] RxNorm: 8171756 2 [place] NASAL 201707/07/2017 Inactive omeprazole 40 mg capsule,delayed release RxNorm: 948461 1 Capsu le(s) PO QD 04/18/2017 10/19/2017 Inactive simvastatin 40 mg tablet RxNorm: 982193 1 Tablet(s) PO QD TAKE 1 TABLET EVERY DAY 04/18/2017 04/12/2018 Inactive metoprolol tartrate 25 mg tablet RxNorm: 123622 1/2 Tablet(s) PO QD 04/18/2017 01/09/2018 Inactive simvastatin 40 mg tablet RxNorm: 225604 Tablet(s) TAKE 1 TABLET EVERY DAY 10/27/2016 04/17/2017 Inactive metoprolol tartrate 25 mg tablet RxNorm: 170220 1/2 Tablet(s) PO QD 09/20/2016 03/18/2017 Inactive Flonase 50 mcg/actuation nasal spray,suspension RxNorm: 1797 933 2 [place] NASAL BID 09/20/2016 04/17/2017 Inactive omeprazole 40 mg capsule,delayed release RxNorm: 999493 1 Capsu le(s) PO QD 09/08/2016 04/17/2017 Inactive metoprolol tartrate 25 mg tablet RxNorm: 726360 1/2 Tablet(s) PO QD 06/14/2016 09/19/2016 Inactive ciprofloxacin 0.2 % ear drops in a dropperette RxNorm: 02727 6 4 Drop(s) OTIC TID for 1 week 02/06/2016 05/11/2016 Inactive cefdinir 300 mg capsule RxNorm: 508578 2 Capsule(s) PO QD 02/06/2016 02/15/2016 Inactive omeprazole 40 mg capsule,delayed release RxNorm: 261433 TAKE 1 CAPSULE EVERY DAY 11/06/2015 09/08/2016 Inactive simvastatin 40 mg tablet RxNorm: 078122 TAKE 1 TABLET EVERY DAY 05/201510/27/2016 Inactive Flonase 50 mcg/actuation nasal spray,suspension RxNorm: 1797 933 2 [place] NASAL BID 02/19/2015 09/19/2016 Inactive cefuroxime axetil 250 mg tablet RxNorm: 481887 1 Tablet(s) PO BID 0 11/21/2014 11/20/2014 Inactive cefuroxime axetil 250 mg tablet RxNorm: 119031 1 Tablet(s) PO BID 0 11/21/2014 11/27/2014 Inactive omeprazole 40 mg capsule,delayed release RxNorm: 569378 1 Capsu le(s) PO QD 10/09/2014 01/05/2015 Inactive meloxicam 7.5 mg tablet RxNorm: 421069 1 Tablet(s) PO QD 07/11/2014 0 08/09/2014 Inactive loratadine 10 mg tablet RxNorm: 053424 1 Tablet(s) PO QAM for a llergies 10/17/2013 08/13/2018 Inactive Flonase 50 mcg/actuation nasal spray,suspension RxNorm: 8963 23 2 [place] NASAL BID 10/17/2013 02/18/2015 Inactive prednisone 20 mg tablet RxNorm: 801006 2 Tablet(s) PO BID 10/17/2013 10/21/2013 Inactive Dyazide 37.5 mg-25 mg capsule RxNorm: 107566 1 Capsule(s) PO QAM 10/16/2013 Inactive Ceftin 500 mg tablet RxNorm: 322901 1 Tablet(s) PO BID 05/31/201307/2013 Inactive Ceftin 500 mg tablet RxNorm: 708119 1 Tablet(s) PO BID 03/26/2013 Inactive simvastatin 40 mg tablet RxNorm: 939502 Tablet(s) PO TA KE ONE TABLET BY MOUTH EVERY DAY 03/26/2013 10/07/2015 Inactive metoprolol tartrate 25 mg tablet RxNorm: 945815 Tablet( s) PO TAKE ONE-HALF TABLET BY MOUTH EVERY DAY 03/26/2013 11/12/2014 Inactive Ceftin 500 mg tablet RxNorm: 369694 1 Tablet(s) PO BID 12/19/2012 Inactive loratadine 10 mg tablet RxNorm: 507314 1 Tablet(s) PO QAM for a llergies 10/04/2012 12/02/2012 Inactive omeprazole 20 mg capsule,delayed release RxNorm: 702844 Capsule(s) PO TAKE ONE CAPSULE BY MOUTH TWICE DAILY 08/09/2012 10/08/2014 Inactive omeprazole 20 mg capsule,delayed release RxNorm: 007223 1 Capsu le(s) PO BID 08/09/2012 05/09/2018 Inactive Augmentin 875 mg-125 mg tablet RxNorm: 730967 1 Tablet(s) PO Q12H 0 07/14/2012 07/23/2012 Inactive Floxin Otic Drops 1 bottle Drops RxNorm: 5 Drop(s) OTIC BID 07/20/2012 Inactive metoprolol tartrate 25 mg tablet RxNorm: 802103 Tablet( s) PO TAKE ONE-HALF TABLET BY MOUTH EVERY DAY 04/11/2012 03/25/2013 Inactive simvastatin 40 mg tablet RxNorm: 936291 Tablet(s) PO TA KE ONE TABLET BY MOUTH EVERY DAY 04/11/2012 03/25/2013 Inactive lancets RxNorm: Misc Miscellaneous USE ONE TO CH JEFFERY GLUCOSE EVERY DAY 04/04/2012 05/09/2018 Inactive Carafate 1 gram tablet RxNorm: 582531 1 Tablet(s) PO AC & HS 201111/12/2014 Inactive Flagyl 500 mg tablet RxNorm: 096599 1 Tablet(s) PO TID 12/15/2011 Inactive Carafate 1 gram tablet RxNorm: 248428 1 Tablet(s) PO AC & HS 201102/12/2012 Inactive One Touch Test strips RxNorm: Miscellaneous QD 09/21/2011 05/09/2018 Inactive one touch ultra mini test strips Protonix 40 mg Tab RxNorm: 423835 1 Tablet(s) PO QD 09/13/20112011 Inactive Protonix 40 mg Tab RxNorm: 934198 1 Tablet(s) PO QD 09/13/20112011 Inactive prednisone 20 mg Tab RxNorm: 266106 1 Tablet(s) PO BID 08/03/201106/2011 Inactive Flexeril 5 mg Tab RxNorm: 010831 1 Tablet(s) PO QHS for spasm 07/2508/24/2011 Inactive Flexeril 5 mg Tab RxNorm: 443953 1 Tablet(s) PO QHS for spasm 06/2707/25/2011 Inactive amlodipine 2.5 mg Tab RxNorm: 425575 1/2 Tablet(s) PO QD replac es 5mg dose 03/31/2011 06/27/2011 Inactive simvastatin 40 mg tablet RxNorm: 071669 1 Tablet(s) PO QD 03/31/2011 03/24/2012 Inactive metoprolol tartrate 25 mg tablet RxNorm: 580937 1/2 Tablet(s) PO QD 03/31/2011 03/24/2012 Inactive omeprazole 20 mg capsule,delayed release RxNorm: 377190 1 Capsu le(s) PO BID 03/31/2011 09/12/2011 Inactive cefdinir 300 mg Cap RxNorm: 273462 2 Capsule(s) PO QD 02/11/201102/04 Inactive simvastatin 40 mg Tab RxNorm: 913762 1 Tablet(s) PO QD 02/01/2011 Inactive metoprolol tartrate 25 mg Tab RxNorm: 894875 1/2 Tablet(s) PO QD 03/30/2011 Inactive metoprolol tartrate 25 mg Tab RxNorm: 035538 1/2 Tablet(s) PO QD 12/28/2010 Inactive meclizine 25 mg Tab RxNorm: 5301497 1 Tablet(s) PO QHS 10/15/201011/2010 Inactive for dizziness Ceftin 500 mg Tab RxNorm: 216447 1 Tablet(s) PO BID 07/02/20102010 Inactive omeprazole 20 mg Cap, Delayed Release RxNorm: 428856 1 Capsule( s) PO BID 07/02/2010 12/28/2010 Inactive simvastatin 40 mg Tab RxNorm: 500657 1 Tablet(s) PO QD 06/30/201007/2018 Inactive simvastatin 40 mg Tab RxNorm: 751282 1 Tablet(s) PO QD 06/30/2010 Inactive simvastatin 40 mg Tab RxNorm: 488339 1 Tablet(s) PO QD 02/25/2010 Inactive Tessalon Perles 100 mg Cap RxNorm: 817163 1 Capsule(s) PO Q6-8H 01/28/2010 Inactive cefdinir 300 mg Cap RxNorm: 941654 1 Capsule(s) PO BID 01/22/2010 Inactive Lexapro 10 mg Tab RxNorm: 638105 1 Tablet(s) PO QD 12/02/2009 010 Inactive Cipro 250 mg Tab RxNorm: 331270 1 Tablet(s) PO BID 12/02/2009 010 Inactive Wellbutrin XL 150 mg 24 hr Tab RxNorm: 891453 1 Tablet(s) PO QAM 08/07/2009 Inactive Fish Oil 1,000 mg Cap RxNorm: 1 Capsule(s) PO QD No Start Date Active Tylenol Extra Strength 500 mg tablet RxNorm: 298061 1/2 Tablet( s) PO as needed No Start Date Active nitroglycerin 0.4 mg sublingual tablet RxNorm: 878612 Tablet(s) SL as needed No Start Date Active Calcium with Vitamin D 600 mg (1,500 mg)-400 unit tablet RxN orm: 924608 1 Tablet(s) PO QD No Start Date Active Multivitamin & Mineral Formula Tab RxNorm: 1 Tablet(s) PO QD No St art Date Active vitamin B complex capsule RxNorm: 1 Capsule(s) PO QD No Start Date Active Aspirin 81 mg Tab RxNorm: 633913 1 Tablet(s) PO QD No Start Date Active isosorbide mononitrate ER 30 mg tablet,extended release 24 h r RxNorm: 205658 1 Tablet(s) PO QHS No Start Date Active Vitamin D 1,000 unit Cap RxNorm: 265870 1 Capsule(s) PO QD No Start D ate Active Co Q-10 oral RxNorm: 87329 oral No Start Date Active metoprolol tartrate 25 mg Tab RxNorm: 026028 1/2 Tablet(s) PO QD No Start Date 12/27/2010 Inactive Nasonex 50 mcg/actuation [place] RxNorm: 8749626 2 [place] NASAL No Sta rt Date 07/06/2017 Inactive Vitamin B12 1000mcg Tablet RxNorm: 1 Tablet(s) PO QD No Start Date 11/12/2014 Inactive amlodipine 5 mg Tab RxNorm: 506966 1 Tablet(s) PO QD No Start Date Inactive simvastatin 40 mg tablet RxNorm: 848519 1 Tablet(s) PO QD No Start Date 06/12/2018 Inactive omeprazole 20 mg capsule,delayed release RxNorm: 283233 1 Capsu le(s) PO BID No Start Date 08/08/2012 Inactive omeprazole 40 mg capsule,delayed release RxNorm: 401705 1 Capsu le(s) PO QD No Start Date 06/12/2018 Inactive Nexium 40 mg Cap RxNorm: 784256 1 Capsule(s) PO QD No Start Date 01/05 Inactive Stool Softener 100 mg Tab RxNorm: 6969289 2 Tablet(s) PO BID No Sta rt Date 03/30/2011 Inactive Calcium with Vitamin D 600 mg (1,500 mg)-400 unit Tab RxNorm : 990792 1 Tablet(s) PO QD No Start Date 11/12/2014 Inactive iron 325 mg (65 mg iron) Tab RxNorm: 763892 1 Tablet(s) PO QD No St art Date 11/12/2014 Inactive Flonase 50 mcg/actuation Nasal [place] RxNorm: 035556 2 [place] DEMOND AL BID No Start Date 10/16/2013 Inactive fluticasone 50 mcg/actuation nasal spray,suspension RxNorm: 1743430 2 [place] NASAL QD to each nostril No Start Date 07/06/2017 Inactive Nasonex 50 mcg/actuation [place] RxNorm: 3496629 2 [place] NASAL QD No Start Date 07/06/2017 Inactive hydralazine 50 mg tablet RxNorm: 342002 1 Tablet(s) PO as needed for BP over 160/90 No Start Date 11/21/2017 Inactive Vimovo 500 mg-20 mg 12 hr Tab RxNorm: 669784 1 Tablet(s) PO BID No Start Date 02/10/2011 Inactive Tylenol PM 25 mg-500 mg/15 mL Oral Soln RxNorm: 9924314 1 PO QPM No Start Date 11/12/2014 Inactive Iron (Ferrous Sulfate) Oral RxNorm: Oral No Start Date 03/30/19 12 Inactive Reglan 10 mg Tab RxNorm: 415688 1 Tablet(s) PO TID before meals No Start Date 02/10/2011 Inactive Xanax 1 mg Tab RxNorm: 849710 1/2 Tablet(s) PO QD No Start Date 11/21 Inactive amlodipine 10 mg tablet RxNorm: 263510 1 Tablet(s) PO QD No Start D ate 09/23/2013 Inactive Iron (dried) Oral RxNorm: Oral No Start Date 03/30/2011 Inactiv e metoprolol tartrate 50 mg tablet RxNorm: 615257 1 Tablet(s) PO BID No Start Date 02/13/2018 Inactive Xanax 0.25 mg tablet RxNorm: 350981 1 Tablet(s) PO BID No Start Date 01/02/2018 Inactive lancets RxNorm: Miscellaneous check blood sugar at least once daily No Start Date 04/03/2012 Inactive simvastatin 40 mg Tab RxNorm: 372443 1 Tablet(s) PO QD No Start Date 02/24/2010 Inactive isosorbide mononitrate ER 30 mg tablet,extended release 24 h r RxNorm: 880601 1 Tablet(s) PO QHS No Start Date 08/13/2018 Inactive amlodipine 2.5 mg tablet RxNorm: 662633 1 Tablet(s) PO QD No Start Date 09/23/2013 Inactive sucralfate 1 gram tablet RxNorm: 884937 1 Tablet(s) PO QID No Start Date 05/09/2018 Inactive Fish Oil Oral RxNorm: Oral No Start Date 03/31/2011 Inactive Multiple Vitamin Oral RxNorm: Oral No Start Date 03/31/2011 Franny ctive metoprolol tartrate 25 mg tablet RxNorm: 473506 1/2 Tablet(s) P O QD No Start Date 06/13/2016 Inactive metoprolol tartrate 50 mg tablet RxNorm: 917875 1/2 Tablet(s) P O BID No Start Date 05/09/2018 Inactive Flonase Allergy Relief 50 mcg/actuation nasal spray,suspensi on RxNorm: 6509751 2 [place] NASAL QHS No Start Date 11/06/2018 Inactive [...] Code Item Item Code Result Date [facility] Location COMPLETE BLOOD COUNT [id number] WBC 7.1 10e9/L 03/13/19 20 Unknown COMPLETE BLOOD COUNT [id number] RBC 4.16 10e12/L 2019 Unknown COMPLETE BLOOD COUNT [id number] HEMOGLOBIN 12.4 g/dL 03/13/19 20 Unknown COMPLETE BLOOD COUNT [id number] HEMATOCRIT 39.3 % 03/13/19 20 Unknown COMPLETE BLOOD COUNT [id number] MCV 94.5 fL 0 Unknown COMPLETE BLOOD COUNT [id number] MCH 29.8 pg 0 Unknown COMPLETE BLOOD COUNT [id number] MCHC 31.6 g/dL 0 Unknown COMPLETE BLOOD COUNT [id number] PLATELET COUNT 161 10e9/L 09/2019 Unknown COMPLETE BLOOD COUNT 0198972 Mean Plt Volume 10.8 fL 09/2019 Unknown COMPLETE BLOOD COUNT [id number] Neut Auto 38.7 % 0 Unknown COMPLETE BLOOD COUNT [id number] Lymph Auto 48.0 % 03/13/19 20 Unknown COMPLETE BLOOD COUNT [id number] [place] Auto 9.5 % 0 Unknown COMPLETE BLOOD COUNT [id number] RDW 13.5 % 0 Unknown COMPLETE BLOOD COUNT [id number] Eos Auto 3.2 % 0 Unknown COMPLETE BLOOD COUNT [id number] Baso Auto 0.6 % 0 Unknown COMPLETE BLOOD COUNT [id number] Neutrophil Abs 2.75 10e9/L Unknown COMPLETE BLOOD COUNT [id number] Lymphocyte Abs 3.41 10e9/L Unknown COMPLETE BLOOD COUNT [id number] Monocyte Abs 0.67 10e9/L 09/2019 Unknown COMPLETE BLOOD COUNT [id number] Eosinophil Abs 0.23 10e9/L Unknown COMPLETE BLOOD COUNT [id number] RDW-SD 44.7 fL 0 Unknown COMPLETE BLOOD COUNT [id number] Basophil Abs 0.04 10e9/L 09/2019 Unknown THYROID STIMULATING HORMONE 13901 TSH 1.677 uIU/mL 03/13/2019 Unknown COMPREHENSIVE METABOLIC 60628 AST 19 U/L 2019 Unknown COMPREHENSIVE METABOLIC 01305 ALT 12 U/L 2019 Unknown COMPREHENSIVE METABOLIC 99694 BUN 17 mg/dL 2019 Unknown COMPREHENSIVE METABOLIC 39980 ALBUMIN 4.2 g/dL 2019 Unknown COMPREHENSIVE METABOLIC 05573 CHLORIDE 103 mmol/L 03/13 Unknown COMPREHENSIVE METABOLIC 24145 Bili Total 0.2 mg/dL 03/13 Unknown COMPREHENSIVE METABOLIC 56260 ALK PHOS 61 U/L 2019 Unknown COMPREHENSIVE METABOLIC 80356 SODIUM 140 mmol/L 03/13 Unknown COMPREHENSIVE METABOLIC 70766 CREATININE 0.95 mg/dL 09/2019 Unknown COMPREHENSIVE METABOLIC 58377 CALCIUM 9.4 mg/dL 2019 Unknown COMPREHENSIVE METABOLIC 50685 POTASSIUM 4.2 mmol/L 03/13 Unknown COMPREHENSIVE METABOLIC 67148 Total Protein 6.5 g/dL Unknown COMPREHENSIVE METABOLIC 56717 Glucose 103 mg/dL 2019 Unknown COMPREHENSIVE METABOLIC 34093 Bicarbonate 26 mmol/L 09/2019 Unknown COMPREHENSIVE METABOLIC 96630 AGAP 11 mmol/L 2019 Unknown GFR CALC [id number] GFR Non Afr Amr 57 mL/min 03/13/2019 Unk nown GFR CALC 0481148 GFR Afr Amr >60 mL/min 03/13/2019 Unknow n GFR CALC [id number] GFR Non Afr Amr 52 mL/min 12/15/2018 Unk nown GFR CALC [id number] GFR Afr Amr >60 mL/min 12/15/2018 Unknow n COMPREHENSIVE METABOLIC 22125 AST 17 U/L 2018 Unknown COMPREHENSIVE METABOLIC 44162 ALT 11 U/L 2018 Unknown COMPREHENSIVE METABOLIC 20390 BUN 17 mg/dL 2018 Unknown COMPREHENSIVE METABOLIC 55799 ALBUMIN 3.9 g/dL 2018 Unknown COMPREHENSIVE METABOLIC 27623 CHLORIDE 108 mmol/L 12/15 Unknown COMPREHENSIVE METABOLIC 15920 Bili Total 0.5 mg/dL 12/15 Unknown COMPREHENSIVE METABOLIC 68722 ALK PHOS 72 U/L 2018 Unknown COMPREHENSIVE METABOLIC 36764 SODIUM 142 mmol/L 12/15 Unknown COMPREHENSIVE METABOLIC 12597 CREATININE 1.02 mg/dL 12/05 Unknown COMPREHENSIVE METABOLIC 40606 CALCIUM 9.3 mg/dL 2018 Unknown COMPREHENSIVE METABOLIC 80812 POTASSIUM 4.0 mmol/L 12/15 Unknown COMPREHENSIVE METABOLIC 26648 Total Protein 6.2 g/dL Unknown COMPREHENSIVE METABOLIC 76277 Glucose 93 mg/dL 2018 Unknown COMPREHENSIVE METABOLIC 59859 Bicarbonate 27 mmol/L 12/05 Unknown COMPREHENSIVE METABOLIC 29825 AGAP 7 mmol/L 2018 Unknown GFR CALC [id number] GFR Non Afr Amr 48 mL/min 08/14/2018 Unk nown GFR CALC [id number] GFR Afr Amr 59 mL/min 08/14/2018 Unknown THYROID STIMULATING HORMONE 02000 TSH 1.936 uIU/mL 08/14/2018 Unknown COMPREHENSIVE METABOLIC 88297 AST 18 U/L 2018 Unknown COMPREHENSIVE METABOLIC 19253 ALT 11 U/L 2018 Unknown COMPREHENSIVE METABOLIC 89181 BUN 18 mg/dL 2018 Unknown COMPREHENSIVE METABOLIC 76145 ALBUMIN 4.2 g/dL 2018 Unknown COMPREHENSIVE METABOLIC 17037 CHLORIDE 109 mmol/L 08/14 Unknown COMPREHENSIVE METABOLIC 76303 Bili Total 0.4 mg/dL 08/14 Unknown COMPREHENSIVE METABOLIC 08470 ALK PHOS 64 U/L 2018 Unknown COMPREHENSIVE METABOLIC 32392 SODIUM 142 mmol/L 08/14 Unknown COMPREHENSIVE METABOLIC 43926 CREATININE 1.09 mg/dL 08/05 Unknown COMPREHENSIVE METABOLIC 88560 CALCIUM 9.3 mg/dL 2018 Unknown COMPREHENSIVE METABOLIC 32983 POTASSIUM 4.7 mmol/L 08/14 Unknown COMPREHENSIVE METABOLIC 27760 Total Protein 6.3 g/dL Unknown COMPREHENSIVE METABOLIC 26575 Glucose 84 mg/dL 2018 Unknown COMPREHENSIVE METABOLIC 20383 Bicarbonate 25 mmol/L 08/05 Unknown COMPREHENSIVE METABOLIC 82036 AGAP 8 mmol/L 2018 Unknown COMPLETE BLOOD COUNT [id number] WBC 7.8 10e9/L 08/15/19 19 Unknown COMPLETE BLOOD COUNT [id number] RBC 4.04 10e12/L 2018 Unknown COMPLETE BLOOD COUNT 1348404 HEMOGLOBIN 12.2 g/dL 08/15/19 19 Unknown COMPLETE BLOOD COUNT [id number] HEMATOCRIT 38.6 % 08/15/19 19 Unknown COMPLETE BLOOD COUNT [id number] MCV 95.5 fL 9 Unknown COMPLETE BLOOD COUNT 1274078 MCH 30.2 pg 9 Unknown COMPLETE BLOOD COUNT 5353213 MCHC 31.6 g/dL 9 Unknown COMPLETE BLOOD COUNT 4743014 PLATELET COUNT 215 10e9/L 12/2018 Unknown COMPLETE BLOOD COUNT [id number] Mean Plt Volume 11.2 fL 12/2018 Unknown COMPLETE BLOOD COUNT 0708263 Neut Auto 45.7 % 9 Unknown COMPLETE BLOOD COUNT [id number] Lymph Auto 42.1 % 08/15/19 19 Unknown COMPLETE BLOOD COUNT 4182854 [place] Auto 9.2 % 9 Unknown COMPLETE BLOOD COUNT [id number] RDW 13.4 % 9 Unknown COMPLETE BLOOD COUNT 5494188 Eos Auto 2.7 % 9 Unknown COMPLETE BLOOD COUNT 5222125 Baso Auto 0.3 % 9 Unknown COMPLETE BLOOD COUNT 2373959 Neutrophil Abs 3.56 10e9/L Unknown COMPLETE BLOOD COUNT [id number] Lymphocyte Abs 3.28 10e9/L Unknown COMPLETE BLOOD COUNT [id number] Monocyte Abs 0.72 10e9/L 08/05 Unknown COMPLETE BLOOD COUNT [id number] Eosinophil Abs 0.21 10e9/L Unknown COMPLETE BLOOD COUNT 0326347 RDW-SD 44.9 fL 9 Unknown COMPLETE BLOOD COUNT 1434127 Basophil Abs 0.02 10e9/L 08/05 Unknown COMPLETE BLOOD COUNT [id number] WBC 5.2 10e9/L 12/01/19 18 Unknown COMPLETE BLOOD COUNT [id number] RBC 4.21 10e12/L 2017 Unknown COMPLETE BLOOD COUNT [id number] HEMOGLOBIN 12.8 g/dL 12/01/19 18 Unknown COMPLETE BLOOD COUNT 1476851 HEMATOCRIT 39.0 % 12/01/19 18 Unknown COMPLETE BLOOD COUNT [id number] MCV 92.6 fL 8 Unknown COMPLETE BLOOD COUNT 0396366 MCH 30.4 pg 8 Unknown COMPLETE BLOOD COUNT 1742201 MCHC 32.8 g/dL 8 Unknown COMPLETE BLOOD COUNT 0642184 PLATELET COUNT 202 10e9/L Unknown COMPLETE BLOOD COUNT 2817695 Mean Plt Volume 10.7 fL Unknown COMPLETE BLOOD COUNT 4147646 Neut Auto 40.9 % 8 Unknown COMPLETE BLOOD COUNT [id number] Lymph Auto 46.3 % 12/01/19 18 Unknown COMPLETE BLOOD COUNT 9558382 [place] Auto 9.3 % 8 Unknown COMPLETE BLOOD COUNT 4246343 RDW 13.7 % 8 Unknown COMPLETE BLOOD COUNT 9071051 Eos Auto 2.9 % 8 Unknown COMPLETE BLOOD COUNT 9999433 Baso Auto 0.6 % 8 Unknown COMPLETE BLOOD COUNT 3060636 Neutrophil Abs 2.13 10e9/L Unknown COMPLETE BLOOD COUNT [id number] Lymphocyte Abs 2.41 10e9/L Unknown COMPLETE BLOOD COUNT [id number] Monocyte Abs 0.48 10e9/L 11/06 Unknown COMPLETE BLOOD COUNT [id number] Eosinophil Abs 0.15 10e9/L Unknown COMPLETE BLOOD COUNT [id number] RDW-SD 45.2 fL 8 Unknown COMPLETE BLOOD COUNT [id number] Basophil Abs 0.03 10e9/L 11/06 [place] [address] Glucose 118 mg/dL 11/30 [place] [address] CREATININE 1.01 mg/dL [place] [address] BUN 14 mg/dL 11/30 [place] [address] SODIUM 141 mmol/L 11/06 [place] [address] POTASSIUM 4.0 mmol/L 11/06 [place] [address] CHLORIDE 108 mmol/L 11/06 [place] [address] Bicarbonate 25 mmol/L [place] [address] AGAP 8 mmol/L 11/30 [place] [address] CALCIUM 9.6 mg/dL 11/30 Unknown FREE T4 00268 T4 Free 1.23 ng/dL 11/30/2017 Unknown GFR CALC [id number] GFR Non Afr Amr 53 mL/min 11/30/2017 Unk nown GFR CALC [id number] GFR Afr Amr >60 mL/min 11/30/2017 Unknow n THYROID STIMULATING HORMONE 51463 TSH 2.124 uIU/mL 11/30/2017 Unknown LIPID GROUP 96980 Cholesterol 152 mg/dL 09/28/2017 Unkno wn LIPID GROUP 92403 Triglyceride 151 mg/dL 09/28/2017 Unkn own LIPID GROUP 94125 HDL CHOLESTEROL 47 mg/dL 09/28/2017 U nknown LIPID GROUP 65205 Chol/HDL Ratio 3.23 ratio 09/28/2017 U nknown LIPID GROUP 85618 NON-HDL Chol 105 mg/dL 09/28/2017 Unkn own LIPID GROUP 10309 LDL Cholesterol 75 mg/dL 09/28/2017 U nknown ASSAY OF TROPONIN QUANT 27238 Troponin-I <0.30 ng/mL Unknown COMPREHENSIVE METABOLIC 11189 AST 20 U/L 2017 Unknown COMPREHENSIVE METABOLIC 30307 ALT 14 U/L 2017 Unknown COMPREHENSIVE METABOLIC 89205 BUN 19 mg/dL 2017 Unknown COMPREHENSIVE METABOLIC 28140 ALBUMIN 4.2 g/dL 2017 Unknown COMPREHENSIVE METABOLIC 38305 CHLORIDE 102 mmol/L 09/27 Unknown COMPREHENSIVE METABOLIC 92312 Bili Total 0.4 mg/dL 09/27 Unknown COMPREHENSIVE METABOLIC 14381 ALK PHOS 66 U/L 2017 Unknown COMPREHENSIVE METABOLIC 71780 SODIUM 135 mmol/L 09/27 Unknown COMPREHENSIVE METABOLIC 62222 CREATININE 1.01 mg/dL 09/05 Unknown COMPREHENSIVE METABOLIC 80219 CALCIUM 9.3 mg/dL 2017 Unknown COMPREHENSIVE METABOLIC 29752 POTASSIUM 4.8 mmol/L 09/27 Unknown COMPREHENSIVE METABOLIC 37693 Total Protein 7.0 g/dL Unknown COMPREHENSIVE METABOLIC 67363 Glucose 91 mg/dL 2017 Unknown COMPREHENSIVE METABOLIC 56561 Bicarbonate 23 mmol/L 09/05 Unknown COMPREHENSIVE METABOLIC 95689 AGAP 10 mmol/L 2017 Unknown COMPLETE BLOOD COUNT [id number] WBC 7.5 10e9/L 09/28/19 18 Unknown COMPLETE BLOOD COUNT [id number] RBC 4.13 10e12/L 2017 Unknown COMPLETE BLOOD COUNT [id number] HEMOGLOBIN 12.6 g/dL 09/28/19 18 Unknown COMPLETE BLOOD COUNT [id number] HEMATOCRIT 38.4 % 09/28/19 18 Unknown COMPLETE BLOOD COUNT [id number] MCV 93.0 fL 8 Unknown COMPLETE BLOOD COUNT [id number] MCH 30.5 pg 8 Unknown COMPLETE BLOOD COUNT [id number] MCHC 32.8 g/dL 8 Unknown COMPLETE BLOOD COUNT [id number] PLATELET COUNT 204 10e9/L Unknown COMPLETE BLOOD COUNT 2621441 Mean Plt Volume 10.9 fL Unknown COMPLETE BLOOD COUNT [id number] Neut Auto 43.1 % 8 Unknown COMPLETE BLOOD COUNT 3607382 Lymph Auto 45.0 % 09/28/19 18 Unknown COMPLETE BLOOD COUNT 7607404 [place] Auto 9.2 % 8 Unknown COMPLETE BLOOD COUNT 2878031 RDW 13.4 % 8 Unknown COMPLETE BLOOD COUNT 6787816 Eos Auto 2.3 % 8 Unknown COMPLETE BLOOD COUNT 5750285 Baso Auto 0.4 % 8 Unknown COMPLETE BLOOD COUNT [id number] Neutrophil Abs 3.23 10e9/L Unknown COMPLETE BLOOD COUNT 2564059 Lymphocyte Abs 3.38 10e9/L Unknown COMPLETE BLOOD COUNT 6259247 Monocyte Abs 0.69 10e9/L 09/05 Unknown COMPLETE BLOOD COUNT [id number] Eosinophil Abs 0.17 10e9/L Unknown COMPLETE BLOOD COUNT 4335363 RDW-SD 44.4 fL 8 Unknown COMPLETE BLOOD COUNT 3775172 Basophil Abs 0.03 10e9/L 09/05 Unknown GFR CALC 8132470 GFR Non Afr Amr 53 mL/min 09/27/2017 Unk nown GFR CALC 1486693 GFR Afr Amr >60 mL/min 09/27/2017 Unknow n GLYCOSYLATED HEMOGLOBIN TEST 27246 Hgb A1c 31598-0 5.4 % 0 09/27/2017 Unknown MEAN GLUC 1672974 Calc Mean Gluc 108 mg/dL 09/27/2017 Unkn own MEAN GLUC 7180000 Calc Mean Gluc 114 mg/dL 11/01/2016 Unkn own LIPID GROUP 96772 Cholesterol 146 mg/dL 11/01/2016 Unkno wn LIPID GROUP 54894 Triglyceride 119 mg/dL 11/01/2016 Unkn own LIPID GROUP 90194 HDL CHOLESTEROL 47 mg/dL 11/01/2016 U nknown LIPID GROUP 55691 Chol/HDL Ratio 3.11 ratio 11/01/2016 U nknown LIPID GROUP 80867 NON-HDL Chol 99 mg/dL 11/01/2016 Unkn own LIPID GROUP 51124 LDL Cholesterol 75 mg/dL 11/01/2016 U nknown GLYCOSYLATED HEMOGLOBIN TEST 23434 Hgb A1c 83343-0 5.6 % 0 11/01/2016 Unknown COMPREHENSIVE METABOLIC 10872 AST 22 U/L 2016 Unknown COMPREHENSIVE METABOLIC 32409 ALT 12 U/L 2016 Unknown COMPREHENSIVE METABOLIC 50295 BUN 17 mg/dL 2016 Unknown COMPREHENSIVE METABOLIC 99808 ALBUMIN 4.0 g/dL 2016 Unknown COMPREHENSIVE METABOLIC 79271 CHLORIDE 110 mmol/L 11/01 Unknown COMPREHENSIVE METABOLIC 69805 Bili Total 0.4 mg/dL 11/01 Unknown COMPREHENSIVE METABOLIC 47010 ALK PHOS 63 U/L 2016 Unknown COMPREHENSIVE METABOLIC 45818 SODIUM 140 mmol/L 11/01 Unknown COMPREHENSIVE METABOLIC 83609 CREATININE 1.05 mg/dL 10/06 Unknown COMPREHENSIVE METABOLIC 60311 CALCIUM 9.2 mg/dL 2016 Unknown COMPREHENSIVE METABOLIC 70862 POTASSIUM 4.2 mmol/L 11/01 Unknown COMPREHENSIVE METABOLIC 38553 Total Protein 6.2 g/dL Unknown COMPREHENSIVE METABOLIC 75783 Glucose 87 mg/dL 2016 Unknown COMPREHENSIVE METABOLIC 21635 Bicarbonate 24 mmol/L 10/06 Unknown COMPREHENSIVE METABOLIC 10602 AGAP 6 mmol/L 2016 Unknown GFR CALC 4252831 GFR Non Afr Amr 51 mL/min 11/01/2016 Unk nown GFR CALC 0611553 GFR Afr Amr >60 mL/min 11/01/2016 Unknow n COMPLETE BLOOD COUNT 7792527 WBC 6.7 10e9/L 11/02/19 17 Unknown COMPLETE BLOOD COUNT 5765048 RBC 4.04 10e12/L 2016 Unknown COMPLETE BLOOD COUNT 3426041 HEMOGLOBIN 12.1 g/dL 11/02/19 17 Unknown COMPLETE BLOOD COUNT 5077271 HEMATOCRIT 38.0 % 11/02/19 17 Unknown COMPLETE BLOOD COUNT 1063837 MCV 94.1 fL 7 Unknown COMPLETE BLOOD COUNT 4716324 MCH 30.0 pg 7 Unknown COMPLETE BLOOD COUNT 9594886 MCHC 31.8 g/dL 7 Unknown COMPLETE BLOOD COUNT 2080908 PLATELET COUNT 206 10e9/L Unknown COMPLETE BLOOD COUNT 8993293 Mean Plt Volume 11.3 fL Unknown COMPLETE BLOOD COUNT 8424179 Neut Auto 35.8 % 7 Unknown COMPLETE BLOOD COUNT 1475925 Lymph Auto 51.6 % 11/02/19 17 Unknown COMPLETE BLOOD COUNT 5274373 [place] Auto 8.8 % 7 Unknown COMPLETE BLOOD COUNT 6176853 RDW 13.5 % 7 Unknown COMPLETE BLOOD COUNT 9921825 Eos Auto 3.4 % 7 Unknown COMPLETE BLOOD COUNT 7216692 Baso Auto 0.4 % 7 Unknown COMPLETE BLOOD COUNT 4491087 Neutrophil Abs 2.40 10e9/L Unknown COMPLETE BLOOD COUNT 2220543 Lymphocyte Abs 3.46 10e9/L Unknown COMPLETE BLOOD COUNT 8135187 Monocyte Abs 0.59 10e9/L 10/06 Unknown COMPLETE BLOOD COUNT 6133149 Eosinophil Abs 0.23 10e9/L Unknown COMPLETE BLOOD COUNT 4434955 RDW-SD 45.3 fL 7 Unknown COMPLETE BLOOD COUNT 5021735 Basophil Abs 0.03 10e9/L 10/06 Unknown THYROID STIMULATING HORMONE 81208 TSH 1.981 uIU/mL 11/01/2016 Unknown COMPLETE BLOOD COUNT 4258741 WBC 6.0 10e9/L 05/14/19 17 Unknown COMPLETE BLOOD COUNT 0503751 RBC 4.29 10e12/L 2016 Unknown COMPLETE BLOOD COUNT 3069896 HEMOGLOBIN 12.9 g/dL 05/14/19 17 Unknown COMPLETE BLOOD COUNT 7977071 HEMATOCRIT 38.4 % 05/14/19 17 Unknown COMPLETE BLOOD COUNT 9340149 MCV 89.5 fL 7 Unknown COMPLETE BLOOD COUNT 4808515 MCH 30.1 pg 7 Unknown COMPLETE BLOOD COUNT 3308168 MCHC 33.6 g/dL 7 Unknown COMPLETE BLOOD COUNT 0329944 PLATELET COUNT 181 10e9/L 11/2016 Unknown COMPLETE BLOOD COUNT 6403880 Mean Plt Volume 11.7 fL 11/2016 Unknown COMPLETE BLOOD COUNT 2991504 Neut Auto 36.9 % 7 Unknown COMPLETE BLOOD COUNT 9824852 Lymph Auto 50.4 % 05/14/19 17 Unknown COMPLETE BLOOD COUNT 2273220 [place] Auto 9.0 % 7 Unknown COMPLETE BLOOD COUNT 2848030 RDW 13.7 % 7 Unknown COMPLETE BLOOD COUNT 5553325 Eos Auto 3.4 % 7 Unknown COMPLETE BLOOD COUNT 5272741 Baso Auto 0.3 % 7 Unknown COMPLETE BLOOD COUNT 2280605 Neutrophil Abs 2.21 10e9/L Unknown COMPLETE BLOOD COUNT 6370215 Lymphocyte Abs 3.02 10e9/L Unknown COMPLETE BLOOD COUNT 9491284 Monocyte Abs 0.54 10e9/L 11/2016 Unknown COMPLETE BLOOD COUNT 4756856 Eosinophil Abs 0.20 10e9/L Unknown COMPLETE BLOOD COUNT 1185540 RDW-SD 44.0 fL 7 Unknown COMPLETE BLOOD COUNT 8619887 Basophil Abs 0.02 10e9/L 11/2016 Unknown GLYCOSYLATED HEMOGLOBIN TEST 19560 Hgb A1c 07416-6 5.4 % 0 05/13/2016 Unknown THYROID STIMULATING HORMONE 21362 TSH 2.200 uIU/mL 05/13/2016 Unknown GFR CALC 8232393 GFR Non Afr Amr 50 mL/min 05/13/2016 Unk nown GFR CALC 0244411 GFR Afr Amr >60 mL/min 05/13/2016 Unknow n MEAN GLUC 2164274 Calc Mean Gluc 108 mg/dL 05/13/2016 Unkn own COMPREHENSIVE METABOLIC 82518 AST 18 U/L 2016 Unknown COMPREHENSIVE METABOLIC 21815 ALT 10 U/L 2016 Unknown COMPREHENSIVE METABOLIC 36928 BUN 20 mg/dL 2016 Unknown COMPREHENSIVE METABOLIC 33701 ALBUMIN 4.1 g/dL 2016 Unknown COMPREHENSIVE METABOLIC 73586 CHLORIDE 109 mmol/L 05/13 Unknown COMPREHENSIVE METABOLIC 07442 Bili Total 0.6 mg/dL 05/13 Unknown COMPREHENSIVE METABOLIC 17315 ALK PHOS 64 U/L 2016 Unknown COMPREHENSIVE METABOLIC 50393 SODIUM 141 mmol/L 05/13 Unknown COMPREHENSIVE METABOLIC 84213 CREATININE 1.06 mg/dL 11/2016 Unknown COMPREHENSIVE METABOLIC 87149 CALCIUM 9.9 mg/dL 2016 Unknown COMPREHENSIVE METABOLIC 93758 POTASSIUM 4.2 mmol/L 05/13 Unknown COMPREHENSIVE METABOLIC 43546 Total Protein 6.3 g/dL Unknown COMPREHENSIVE METABOLIC 56551 Glucose 99 mg/dL 2016 Unknown COMPREHENSIVE METABOLIC 56291 Bicarbonate 21 mmol/L 11/2016 Unknown COMPREHENSIVE METABOLIC 10737 AGAP 11 mmol/L 2016 Unknown LIPID GROUP 72098 Cholesterol 169 mg/dL 11/25/2015 Unkno wn LIPID GROUP 25127 Triglyceride 165 mg/dL 11/25/2015 Unkn own LIPID GROUP 92714 HDL CHOLESTEROL 43 mg/dL 11/25/2015 U nknown LIPID GROUP 93801 Chol/HDL Ratio 3.93 ratio 11/25/2015 U nknown LIPID GROUP 60246 NON-HDL Chol 126 mg/dL 11/25/2015 Unkn own LIPID GROUP 18625 LDL Cholesterol 93 mg/dL 11/25/2015 U nknown COMPREHENSIVE METABOLIC 60748 AST 18 U/L 2015 Unknown COMPREHENSIVE METABOLIC 69715 ALT 10 U/L 2015 Unknown COMPREHENSIVE METABOLIC 56859 BUN 20 mg/dL 2015 Unknown COMPREHENSIVE METABOLIC 08618 ALBUMIN 3.9 g/dL 2015 Unknown COMPREHENSIVE METABOLIC 81391 CHLORIDE 110 mmol/L 11/24 Unknown COMPREHENSIVE METABOLIC 73131 Bili Total 0.5 mg/dL 11/24 Unknown COMPREHENSIVE METABOLIC 53816 ALK PHOS 72 U/L 2015 Unknown COMPREHENSIVE METABOLIC 57362 SODIUM 141 mmol/L 11/24 Unknown COMPREHENSIVE METABOLIC 34248 CREATININE 1.12 mg/dL 11/06 Unknown COMPREHENSIVE METABOLIC 34264 CALCIUM 9.7 mg/dL 2015 Unknown COMPREHENSIVE METABOLIC 02356 POTASSIUM 4.4 mmol/L 11/24 Unknown COMPREHENSIVE METABOLIC 70999 Total Protein 6.2 g/dL Unknown COMPREHENSIVE METABOLIC 34647 Glucose 90 mg/dL 2015 Unknown COMPREHENSIVE METABOLIC 91529 Bicarbonate 23 mmol/L 11/06 Unknown COMPREHENSIVE METABOLIC 75659 AGAP 8 mmol/L 2015 Unknown GFR CALC 3273811 GFR Non Afr Amr 47 mL/min 11/25/2015 Unk nown GFR CALC 1296613 GFR Afr Amr 57 mL/min 11/25/2015 Unknown GLYCOSYLATED HEMOGLOBIN TEST 47473 Hgb A1c 54489-7 5.5 % 0 11/25/2015 Unknown THYROID STIMULATING HORMONE 81099 TSH 2.537 uIU/mL 11/25/2015 Unknown FREE T4 73781 T4 Free 1.36 ng/dL 11/25/2015 Unknown COMPLETE BLOOD COUNT 4778611 WBC 6.8 10e9/L 11/25/19 16 Unknown COMPLETE BLOOD COUNT 7693555 RBC 4.20 10e12/L 2015 Unknown COMPLETE BLOOD COUNT 9792995 HEMOGLOBIN 12.5 g/dL 11/25/19 16 Unknown COMPLETE BLOOD COUNT 9814125 HEMATOCRIT 38.0 % 11/25/19 16 Unknown COMPLETE BLOOD COUNT 0435566 MCV 90.5 fL 6 Unknown COMPLETE BLOOD COUNT 3772221 MCH 29.8 pg 6 Unknown COMPLETE BLOOD COUNT 9545898 MCHC 32.9 g/dL 6 Unknown COMPLETE BLOOD COUNT 2980893 PLATELET COUNT 197 10e9/L Unknown COMPLETE BLOOD COUNT 1556084 Mean Plt Volume 11.7 fL Unknown COMPLETE BLOOD COUNT 1446334 Neut Auto 41.3 % 6 Unknown COMPLETE BLOOD COUNT 1691063 Lymph Auto 47.1 % 11/25/19 16 Unknown COMPLETE BLOOD COUNT 2884681 [place] Auto 7.8 % 6 Unknown COMPLETE BLOOD COUNT 4820272 RDW 13.8 % 6 Unknown COMPLETE BLOOD COUNT 9436743 Eos Auto 3.4 % 6 Unknown COMPLETE BLOOD COUNT 7493311 Baso Auto 0.4 % 6 Unknown COMPLETE BLOOD COUNT 6677317 Neutrophil Abs 2.81 10e9/L Unknown COMPLETE BLOOD COUNT 8433165 Lymphocyte Abs 3.20 10e9/L Unknown COMPLETE BLOOD COUNT 2091119 Monocyte Abs 0.53 10e9/L 11/06 Unknown COMPLETE BLOOD COUNT 1373777 Eosinophil Abs 0.23 10e9/L Unknown COMPLETE BLOOD COUNT 3964941 RDW-SD 44.4 fL 6 Unknown COMPLETE BLOOD COUNT 6974384 Basophil Abs 0.03 10e9/L 11/06 Unknown MEAN GLUC 6141596 Calc Mean Gluc 111 mg/dL 11/25/2015 [place] [address] Glucose 89 MG/DL 02/19 [place] [address] CREATININE 1.12 MG/DL [place] [address] BUN 20 MG/DL 02/19 [place] [address] SODIUM 139 MMOL/L 02/04 [place] [address] POTASSIUM 4.6 MMOL/L 02/04 [place] [address] CHLORIDE 108 MMOL/L 02/04 [place] [address] BICARB 26 MMOL/L 02/19 [place] [address] ANION GAP 5 MEQ/L 02/19 [place] [address] CALCIUM 10.0 MG/DL 02/04 Unknown GFR CALC 8009983 GFR AA 57.0L ML/MIN 02/19/2015 Unknow n GFR CALC 1906054 GFR NON-AA 47.0L ML/MIN 02/19/2015 Unkno wn THYROID STIMULATING HORMONE 42418 TSH 2.378 uIU/ML 11/14/2014 Unknown COMPLETE BLOOD COUNT 0407213 WBC 6.4 10e9/L 11/15/19 15 Unknown COMPLETE BLOOD COUNT 3504838 RBC 3.99 10e12/L 2014 Unknown COMPLETE BLOOD COUNT 9382080 HGB 11.9 g/dL 5 Unknown COMPLETE BLOOD COUNT 6393696 HCT DET 36.9 % 5 Unknown COMPLETE BLOOD COUNT 2711000 MCV 92.5 fL 5 Unknown COMPLETE BLOOD COUNT 2726628 MCH 29.8 pg 5 Unknown COMPLETE BLOOD COUNT 0935063 MCHC 32.2 g/dL 5 Unknown COMPLETE BLOOD COUNT 7470579 PLT 172 10e9/L 11/15/19 15 Unknown COMPLETE BLOOD COUNT 5562710 MPV 11.7 fL 5 Unknown COMPLETE BLOOD COUNT 4360242 CINTHYA % 40.4 % 5 Unknown COMPLETE BLOOD COUNT 1634349 LY % 48.0 % 5 Unknown COMPLETE BLOOD COUNT 2841585 MON % 8.3 % 5 Unknown COMPLETE BLOOD COUNT 5539646 EOS % 2.8 % 5 Unknown COMPLETE BLOOD COUNT 0835527 BASO % 0.5 % 5 Unknown COMPLETE BLOOD COUNT 6141828 RDW 13.6 % 5 Unknown COMPLETE BLOOD COUNT 9201080 ABS CINTHYA 2.59 10e9/L 015 Unknown COMPLETE BLOOD COUNT 8849189 ABS LYMPH 3.07 10e9/L 015 Unknown COMPLETE BLOOD COUNT 6970729 ABS MONO 0.53 10e9/L 015 Unknown COMPLETE BLOOD COUNT 4343035 ABS EOS 0.18 10e9/L 015 Unknown COMPLETE BLOOD COUNT 5665469 ABS BASO 0.03 10e9/L 015 Unknown COMPLETE BLOOD COUNT 3719851 RDW-SD 44.9 fL 5 Unknown LIPID GROUP 45584 HDL TEST 42 MG/DL 11/14/2014 Unknown LIPID GROUP 09069 TRIG 177 MG/DL 11/14/2014 Unknown LIPID GROUP 18029 TEST LDL 72 MG/DL 11/14/2014 Unknown LIPID GROUP 23769 CHOL 149 MG/DL 11/14/2014 Unknown LIPID GROUP 81046 RCHOL/HDL 3.55 RATIO 11/14/2014 Unknow n LIPID GROUP 02155 NON-HDL CH 107 MG/DL 11/14/2014 Unknow n GLYCOSYLATED HEMOGLOBIN TEST 78687 A1C HPLC 98274-8 5.5 % 0 11/14/2014 Unknown FREE T4 65159 FREE T4 1.39 NG/DL 11/14/2014 Unknown GFR CALC 5934506 GFR AA 55.0L ML/MIN 11/14/2014 Unknow n GFR CALC 0187079 GFR NON-AA 46.0L ML/MIN 11/14/2014 Unkno wn COMPREHENSIVE METABOLIC 65945 AST 17 U/L 2014 Unknown COMPREHENSIVE METABOLIC 53697 ALT 10 IU/L 2014 Unknown COMPREHENSIVE METABOLIC 63547 BUN 20 MG/DL 2014 Unknown COMPREHENSIVE METABOLIC 60643 ALBUMIN 3.9 GM/DL 2014 Unknown COMPREHENSIVE METABOLIC 17001 CHLORIDE 111 MMOL/L 11/14 Unknown COMPREHENSIVE METABOLIC 01340 BILI TOT 0.4 MG/DL 2014 Unknown COMPREHENSIVE METABOLIC 01981 ALK PHOS 70 U/L 2014 Unknown COMPREHENSIVE METABOLIC 26585 SODIUM 142 MMOL/L 11/14 Unknown COMPREHENSIVE METABOLIC 70969 CREATININE 1.16 MG/DL 11/05 Unknown COMPREHENSIVE METABOLIC 10781 CALCIUM 9.4 MG/DL 2014 Unknown COMPREHENSIVE METABOLIC 00171 POTASSIUM 4.6 MMOL/L 11/14 Unknown COMPREHENSIVE METABOLIC 09468 PROT TOT 6.2 GM/DL 2014 Unknown COMPREHENSIVE METABOLIC 30249 Glucose 90 MG/DL 2014 Unknown COMPREHENSIVE METABOLIC 66911 BICARB 24 MMOL/L 2014 Unknown COMPREHENSIVE METABOLIC 40804 ANION GAP 7 MEQ/L 2014 Unknown THYROID STIMULATING HORMONE 45972 TSH 2.427 uIU/ML 05/10/2014 Unknown LIPID GROUP 99194 HDL TEST 47 MG/DL 05/10/2014 Unknown LIPID GROUP 20974 TRIG 145 MG/DL 05/10/2014 Unknown LIPID GROUP 57305 TEST LDL 73 MG/DL 05/10/2014 Unknown LIPID GROUP 71902 CHOL 149 MG/DL 05/10/2014 Unknown LIPID GROUP 97310 RCHOL/HDL 3.17 RATIO 05/10/2014 Unknow n LIPID GROUP 87733 NON-HDL CH 102 MG/DL 05/10/2014 Unknow n COMPREHENSIVE METABOLIC 50876 AST 17 U/L 2014 Unknown COMPREHENSIVE METABOLIC 61101 ALT 9 IU/L 2014 Unknown COMPREHENSIVE METABOLIC 96124 BUN 19 MG/DL 2014 Unknown COMPREHENSIVE METABOLIC 35399 ALBUMIN 4.3 GM/DL 2014 Unknown COMPREHENSIVE METABOLIC 12259 CHLORIDE 108 MMOL/L 05/10 Unknown COMPREHENSIVE METABOLIC 53619 BILI TOT 0.5 MG/DL 2014 Unknown COMPREHENSIVE METABOLIC 44250 ALK PHOS 68 U/L 2014 Unknown COMPREHENSIVE METABOLIC 74710 SODIUM 140 MMOL/L 05/10 Unknown COMPREHENSIVE METABOLIC 01687 CREATININE 1.08 MG/DL 08/2014 Unknown COMPREHENSIVE METABOLIC 23825 CALCIUM 9.9 MG/DL 2014 Unknown COMPREHENSIVE METABOLIC 77377 POTASSIUM 4.3 MMOL/L 05/10 Unknown COMPREHENSIVE METABOLIC 54637 PROT TOT 7.2 GM/DL 2014 Unknown COMPREHENSIVE METABOLIC 63878 Glucose 94 MG/DL 2014 Unknown COMPREHENSIVE METABOLIC 42132 BICARB 26 MMOL/L 2014 Unknown COMPREHENSIVE METABOLIC 46875 ANION GAP 6 MEQ/L 2014 Unknown GFR CALC 7549048 GFR AA 60.0L ML/MIN 05/10/2014 Unknow n GFR CALC 3769225 GFR NON-AA 49.0L ML/MIN 05/10/2014 Unkno wn GLYCOSYLATED HEMOGLOBIN TEST 28728 A1C HPLC 51507-3 5.6 % 0 05/10/2014 Unknown COMPLETE BLOOD COUNT 8440999 WBC 7.2 10e9/L 05/11/19 15 Unknown COMPLETE BLOOD COUNT 5464429 RBC 4.28 10e12/L 2014 Unknown COMPLETE BLOOD COUNT 3842278 HGB 12.8 g/dL 5 Unknown COMPLETE BLOOD COUNT 5730914 HCT DET 39.3 % 5 Unknown COMPLETE BLOOD COUNT 7465803 MCV 91.8 fL 5 Unknown COMPLETE BLOOD COUNT 6716205 MCH 29.9 pg 5 Unknown COMPLETE BLOOD COUNT 6499713 MCHC 32.6 g/dL 5 Unknown COMPLETE BLOOD COUNT 4387611 PLT 189 10e9/L 05/11/19 15 Unknown COMPLETE BLOOD COUNT 2313161 MPV 11.2 fL 5 Unknown COMPLETE BLOOD COUNT 3386175 CINTHYA % 38.0 % 5 Unknown COMPLETE BLOOD COUNT 9292352 LY % 51.0 % 5 Unknown COMPLETE BLOOD COUNT 6213353 MON % 7.7 % 5 Unknown COMPLETE BLOOD COUNT 7146842 EOS % 2.9 % 5 Unknown COMPLETE BLOOD COUNT 8431797 BASO % 0.4 % 5 Unknown COMPLETE BLOOD COUNT 8768607 RDW 14.0 % 5 Unknown COMPLETE BLOOD COUNT 1646445 ABS CINTHYA 2.74 10e9/L 015 Unknown COMPLETE BLOOD COUNT 9291386 ABS LYMPH 3.67 10e9/L 015 Unknown COMPLETE BLOOD COUNT 1541375 ABS MONO 0.55 10e9/L 015 Unknown COMPLETE BLOOD COUNT 6887056 ABS EOS 0.21 10e9/L 015 Unknown COMPLETE BLOOD COUNT 7520663 ABS BASO 0.03 10e9/L 015 Unknown COMPLETE BLOOD COUNT 6800745 RDW-SD 46.1 fL 5 Unknown FREE T4 80320 FREE T4 1.14 NG/DL 05/10/2014 Unknown GLYCOSYLATED HEMOGLOBIN TEST 16348 A1C HPLC 48877-0 5.2 % 0 03/29/2013 Unknown FREE T4 63578 FREE T4 1.40 NG/DL 03/28/2013 Unknown GFR CALC 2007943 GFR AA >60 ML/MIN 03/28/2013 Unknown GFR CALC 3143587 GFR NON-AA 52.0L ML/MIN 03/28/2013 Unkno wn COMPREHENSIVE METABOLIC 46304 AST 15 U/L 2013 Unknown COMPREHENSIVE METABOLIC 87509 ALT 9 IU/L 2013 Unknown COMPREHENSIVE METABOLIC 46470 BUN 17 MG/DL 2013 Unknown COMPREHENSIVE METABOLIC 92648 ALBUMIN 4.0 GM/DL 2013 Unknown COMPREHENSIVE METABOLIC 43754 CHLORIDE 112 MMOL/L 03/28 Unknown COMPREHENSIVE METABOLIC 46898 BILI TOT 0.5 MG/DL 2013 Unknown COMPREHENSIVE METABOLIC 94354 ALK PHOS 66 U/L 2013 Unknown COMPREHENSIVE METABOLIC 00914 SODIUM 140 MMOL/L 03/28 Unknown COMPREHENSIVE METABOLIC 03429 CREATININE 1.03 MG/DL 03/08 Unknown COMPREHENSIVE METABOLIC 84785 CALCIUM 9.5 MG/DL 2013 Unknown COMPREHENSIVE METABOLIC 11834 POTASSIUM 4.1 MMOL/L 03/28 Unknown COMPREHENSIVE METABOLIC 35715 PROT TOT 6.2 GM/DL 2013 Unknown COMPREHENSIVE METABOLIC 97496 Glucose 102 MG/DL 2013 Unknown COMPREHENSIVE METABOLIC 71304 BICARB 23 MMOL/L 2013 Unknown COMPREHENSIVE METABOLIC 37093 ANION GAP 5 MEQ/L 2013 Unknown THYROID STIMULATING HORMONE 78477 TSH 2.074 uIU/ML 03/28/2013 Unknown VITAMIN B 12 FOLIC ACID 74272|21628 VIT B 12 423 PG/ML 03/08 Unknown VITAMIN B 12 FOLIC ACID 92936|10857 FOLIC ACID 19.7 NG/ML Unknown LIPID GROUP 12112 HDL TEST 40 MG/DL 03/28/2013 Unknown LIPID GROUP 37685 TRIG 145 MG/DL 03/28/2013 Unknown LIPID GROUP 29130 TEST LDL 81 MG/DL 03/28/2013 Unknown LIPID GROUP 11773 CHOL 150 MG/DL 03/28/2013 Unknown LIPID GROUP 75576 RCHOL/HDL 3.75 RATIO 03/28/2013 Unknow n COMPLETE BLOOD COUNT 4682919 WBC 6.0 10e9/L 03/28/19 14 Unknown COMPLETE BLOOD COUNT 0271614 RBC 4.26 10e12/L 2013 Unknown COMPLETE BLOOD COUNT 6250134 HGB 12.7 g/dL 4 Unknown COMPLETE BLOOD COUNT 3647564 HCT DET 38.7 % 4 Unknown COMPLETE BLOOD COUNT 2519259 MCV 90.8 fL 4 Unknown COMPLETE BLOOD COUNT 1498199 MCH 29.8 pg 4 Unknown COMPLETE BLOOD COUNT 5865139 MCHC 32.8 g/dL 4 Unknown COMPLETE BLOOD COUNT 8699867 PLT 178 10e9/L 03/28/19 14 Unknown COMPLETE BLOOD COUNT 1198358 MPV 11.7 fL 4 Unknown COMPLETE BLOOD COUNT 6387027 CINTHYA % 30.5 % 4 Unknown COMPLETE BLOOD COUNT 8048596 LY % 55.4 % 4 Unknown COMPLETE BLOOD COUNT 7704981 MON % 9.0 % 4 Unknown COMPLETE BLOOD COUNT 4724252 EOS % 4.4 % 4 Unknown COMPLETE BLOOD COUNT 3597574 BASO % 0.7 % 4 Unknown COMPLETE BLOOD COUNT 9384246 RDW 13.3 % 4 Unknown COMPLETE BLOOD COUNT 1154074 ABS CINTHYA 1.83 10e9/L 014 Unknown COMPLETE BLOOD COUNT 2162942 ABS LYMPH 3.32 10e9/L 014 Unknown COMPLETE BLOOD COUNT 3810014 ABS MONO 0.54 10e9/L 014 Unknown COMPLETE BLOOD COUNT 0857073 ABS EOS 0.26 10e9/L 014 Unknown COMPLETE BLOOD COUNT 1993273 ABS BASO 0.04 10e9/L 014 Unknown COMPLETE BLOOD COUNT 7175051 RDW-SD 43.2 fL 4 Unknown HEMOGLOBIN A1C (GLYCOSYLATED) 0182459 A1C HPLC 33462-6 5.5 % 02/24/2012 Unknown COMPLETE BLOOD COUNT 0739718 WBC 6.0 10e9/L 02/23/20 12 Unknown COMPLETE BLOOD COUNT 7256488 RBC 4.22 10e12/L 2011 Unknown COMPLETE BLOOD COUNT 2600885 HGB 12.4 g/dL 2 Unknown COMPLETE BLOOD COUNT 0124004 HCT DET 38.2 % 2 Unknown COMPLETE BLOOD COUNT 5827390 MCV 90.5 fL 2 Unknown COMPLETE BLOOD COUNT 9619314 MCH 29.4 pg 2 Unknown COMPLETE BLOOD COUNT 0321225 MCHC 32.5 g/dL 2 Unknown COMPLETE BLOOD COUNT 2524061 PLT 187 10e9/L 02/23/20 12 Unknown COMPLETE BLOOD COUNT 1224935 MPV 11.5 fL 2 Unknown COMPLETE BLOOD COUNT 2504714 CINTHYA % 36.4 % 2 Unknown COMPLETE BLOOD COUNT 5901031 LY % 51.0 % 2 Unknown COMPLETE BLOOD COUNT 4454206 MON % 8.7 % 2 Unknown COMPLETE BLOOD COUNT 1174381 EOS % 3.2 % 2 Unknown COMPLETE BLOOD COUNT 1439777 BASO % 0.7 % 2 Unknown COMPLETE BLOOD COUNT 0804904 RDW 13.7 % 2 Unknown COMPLETE BLOOD COUNT 2987275 ABS CINTHYA 2.18 10e9/L 012 Unknown COMPLETE BLOOD COUNT 3378668 ABS LYMPH 3.06 10e9/L 012 Unknown COMPLETE BLOOD COUNT 9173173 ABS MONO 0.52 10e9/L 012 Unknown COMPLETE BLOOD COUNT 2765028 ABS EOS 0.19 10e9/L 012 Unknown COMPLETE BLOOD COUNT 6825575 ABS BASO 0.04 10e9/L 012 Unknown COMPLETE BLOOD COUNT 1244127 RDW-SD 44.3 fL 2 Unknown LIPID GROUP 96851 HDL TEST 42 MG/DL 02/23/2012 Unknown LIPID GROUP 62361 TRIG 156 MG/DL 02/23/2012 Unknown LIPID GROUP 40915 TEST LDL 80 MG/DL 02/23/2012 Unknown LIPID GROUP 57751 CHOL 153 MG/DL 02/23/2012 Unknown LIPID GROUP 40209 RCHOL/HDL 3.64 RATIO 02/23/2012 Unknow n FREE T4 90349 FREE T4 1.22 NG/DL 02/23/2012 Unknown COMPREHENSIVE METABOLIC 89706 AST 20 U/L 2011 Unknown COMPREHENSIVE METABOLIC 89269 ALT 11 IU/L 2011 Unknown COMPREHENSIVE METABOLIC 78878 BUN 19 MG/DL 2011 Unknown COMPREHENSIVE METABOLIC 21043 ALBUMIN 4.3 GM/DL 2011 Unknown COMPREHENSIVE METABOLIC 99840 CHLORIDE 109 MMOL/L 02/22 Unknown COMPREHENSIVE METABOLIC 99359 BILI TOT 0.6 MG/DL 2011 Unknown COMPREHENSIVE METABOLIC 41071 ALK PHOS 84 U/L 2011 Unknown COMPREHENSIVE METABOLIC 73740 SODIUM 142 MMOL/L 02/22 Unknown COMPREHENSIVE METABOLIC 40011 CREATININE 1.09 MG/DL 02/04 Unknown COMPREHENSIVE METABOLIC 73409 CALCIUM 9.8 MG/DL 2011 Unknown COMPREHENSIVE METABOLIC 04110 POTASSIUM 4.2 MMOL/L 02/22 Unknown COMPREHENSIVE METABOLIC 94227 PROT TOT 6.4 GM/DL 2011 Unknown COMPREHENSIVE METABOLIC 62842 Glucose 89 MG/DL 2011 Unknown COMPREHENSIVE METABOLIC 14337 BICARB 25 MMOL/L 2011 Unknown COMPREHENSIVE METABOLIC 79754 ANION GAP 8 MEQ/L 2011 Unknown GFR CALC 0197484 GFR AA 60.0L ML/MIN 02/23/2012 Unknow n GFR CALC 8537154 GFR NON-AA 49.0L ML/MIN 02/23/2012 Unkno wn THYROID STIMULATING HORMONE 51512 TSH 2.450 uIU/ML 02/23/2012 Unknown COMPREHENSIVE METABOLIC 40790 AST 22 U/L 2011 Unknown COMPREHENSIVE METABOLIC 62038 ALT 14 IU/L 2011 Unknown COMPREHENSIVE METABOLIC 80283 BUN 21 MG/DL 2011 Unknown COMPREHENSIVE METABOLIC 53321 ALBUMIN 4.3 GM/DL 2011 Unknown COMPREHENSIVE METABOLIC 77582 CHLORIDE 106 MMOL/L 04/01 Unknown COMPREHENSIVE METABOLIC 87844 BILI TOT 0.4 MG/DL 2011 Unknown COMPREHENSIVE METABOLIC 23368 ALK PHOS 80 U/L 2011 Unknown COMPREHENSIVE METABOLIC 49214 SODIUM 141 MMOL/L 04/01 Unknown COMPREHENSIVE METABOLIC 82227 CREATININE 1.13 MG/DL 03/08 Unknown COMPREHENSIVE METABOLIC 11475 CALCIUM 9.4 MG/DL 2011 Unknown COMPREHENSIVE METABOLIC 39119 POTASSIUM 4.3 MMOL/L 04/01 Unknown COMPREHENSIVE METABOLIC 30986 PROT TOT 6.7 GM/DL 2011 Unknown COMPREHENSIVE METABOLIC 12006 Glucose 98 MG/DL 2011 Unknown COMPREHENSIVE METABOLIC 90876 BICARB 25 MMOL/L 2011 Unknown COMPREHENSIVE METABOLIC 66567 ANION GAP 10 MEQ/L 2011 Unknown LIPID GROUP 79589 HDL TEST 44 MG/DL 04/01/2011 Unknown LIPID GROUP 68086 TRIG 164 MG/DL 04/01/2011 Unknown LIPID GROUP 22864 TEST LDL 98 MG/DL 04/01/2011 Unknown LIPID GROUP 45646 CHOL 175 MG/DL 04/01/2011 Unknown LIPID GROUP 40486 RCHOL/HDL 3.98 RATIO 04/01/2011 Unknow n COMPLETE BLOOD COUNT 66115 WBC 6.7 10e9/L 04/01/19 12 Unknown COMPLETE BLOOD COUNT 80969 RBC 4.36 10e12/L 2011 Unknown COMPLETE BLOOD COUNT 01126 HGB 12.9 g/dL 2 Unknown COMPLETE BLOOD COUNT 20337 HCT DET 39.4 % 2 Unknown COMPLETE BLOOD COUNT 12639 MCV 90.4 fL 2 Unknown COMPLETE BLOOD COUNT 40514 MCH 29.6 pg 2 Unknown COMPLETE BLOOD COUNT 00019 MCHC 32.7 g/dL 2 Unknown COMPLETE BLOOD COUNT 11449 PLT 184 10e9/L 04/01/19 12 Unknown COMPLETE BLOOD COUNT 69321 MPV 10.9 fL 2 Unknown COMPLETE BLOOD COUNT 85801 CINTHYA % 41.5 % 2 Unknown COMPLETE BLOOD COUNT 69605 LY % 45.7 % 2 Unknown COMPLETE BLOOD COUNT 00431 MON % 9.4 % 2 Unknown COMPLETE BLOOD COUNT 26615 EOS % 3.0 % 2 Unknown COMPLETE BLOOD COUNT 13221 BASO % 0.4 % 2 Unknown COMPLETE BLOOD COUNT 53021 RDW 13.2 % 2 Unknown COMPLETE BLOOD COUNT 53043 ABS CINTHYA 2.78 10e9/L 012 Unknown COMPLETE BLOOD COUNT 73180 ABS LYMPH 3.06 10e9/L 012 Unknown COMPLETE BLOOD COUNT 83978 ABS MONO 0.63 10e9/L 012 Unknown COMPLETE BLOOD COUNT 36542 ABS EOS 0.20 10e9/L 012 Unknown COMPLETE BLOOD COUNT 02767 ABS BASO 0.03 10e9/L 012 Unknown COMPLETE BLOOD COUNT 66965 RDW-SD 42.3 fL 2 Unknown GFR CALC [id number] GFR AA 57.0L ML/MIN 04/01/2011 Unknow n GFR CALC [id number] GFR NON-AA 47.0L ML/MIN 04/01/2011 Unkno wn THYROID STIMULATING HORMONE 24267 TSH 2.663 uIU/ML 04/01/2011 Unknown FREE T4 11071 FREE T4 1.15 NG/DL 04/01/2011 Unknown THYROID STIMULATING HORMONE 20370 TSH 1.908 uIU/ML 07/06/2010 Unknown COMPLETE BLOOD COUNT 35762 WBC 6.4 10e9/L 07/07/19 11 Unknown COMPLETE BLOOD COUNT 85145 RBC 3.92 10e12/L 2010 Unknown COMPLETE BLOOD COUNT 26170 HGB 11.8 g/dL 1 Unknown COMPLETE BLOOD COUNT 00576 HCT DET 36.0 % 1 Unknown COMPLETE BLOOD COUNT 62999 MCV 91.8 fL 1 Unknown COMPLETE BLOOD COUNT 63607 MCH 30.1 pg 1 Unknown COMPLETE BLOOD COUNT 42784 MCHC 32.8 g/dL 1 Unknown COMPLETE BLOOD COUNT 74623 PLT 176 10e9/L 07/07/19 11 Unknown COMPLETE BLOOD COUNT 60827 MPV 11.4 fL 1 Unknown COMPLETE BLOOD COUNT 92322 CINTHYA % 50.4 % 1 Unknown COMPLETE BLOOD COUNT 70410 LY % 35.5 % 1 Unknown COMPLETE BLOOD COUNT 63527 MON % 10.2 % 1 Unknown COMPLETE BLOOD COUNT 51923 EOS % 3.3 % 1 Unknown COMPLETE BLOOD COUNT 95838 BASO % 0.6 % 1 Unknown COMPLETE BLOOD COUNT 58829 RDW 13.7 % 1 Unknown COMPLETE BLOOD COUNT 52801 ABS CINTHYA 3.23 10e9/L 011 Unknown COMPLETE BLOOD COUNT 20626 ABS LYMPH 2.27 10e9/L 011 Unknown COMPLETE BLOOD COUNT 95527 ABS MONO 0.65 10e9/L 011 Unknown COMPLETE BLOOD COUNT 09216 ABS EOS 0.21 10e9/L 011 Unknown COMPLETE BLOOD COUNT 83857 ABS BASO 0.04 10e9/L 011 Unknown COMPLETE BLOOD COUNT 10071 RDW-SD 45.3 fL 1 Unknown GFR CALC [id number] GFR AA >60 ML/MIN 07/06/2010 Unknown GFR CALC [id number] GFR NON-AA 53.0L ML/MIN 07/06/2010 Unkno wn FREE T4 43069 FREE T4 1.20 NG/DL 07/06/2010 Unknown COMPREHENSIVE METABOLIC 72424 AST 17 U/L 2010 Unknown COMPREHENSIVE METABOLIC 83566 ALT 9 IU/L 2010 Unknown COMPREHENSIVE METABOLIC 71997 BUN 16 MG/DL 2010 Unknown COMPREHENSIVE METABOLIC 26192 ALBUMIN 4.0 GM/DL 2010 Unknown COMPREHENSIVE METABOLIC 07592 CHLORIDE 108 MMOL/L 07/06 Unknown COMPREHENSIVE METABOLIC 27655 BILI TOT 0.5 MG/DL 2010 Unknown COMPREHENSIVE METABOLIC 72992 ALK PHOS 76 U/L 2010 Unknown COMPREHENSIVE METABOLIC 27691 SODIUM 139 MMOL/L 07/06 Unknown COMPREHENSIVE METABOLIC 10166 CREATININE 1.02 MG/DL 04/2010 Unknown COMPREHENSIVE METABOLIC 70389 CALCIUM 9.2 MG/DL 2010 Unknown COMPREHENSIVE METABOLIC 86064 POTASSIUM 4.5 MMOL/L 07/06 Unknown COMPREHENSIVE METABOLIC 39015 PROT TOT 6.1 GM/DL 2010 Unknown COMPREHENSIVE METABOLIC 34544 Glucose 93 MG/DL 2010 Unknown COMPREHENSIVE METABOLIC 05902 BICARB 26 MMOL/L 2010 Unknown COMPREHENSIVE METABOLIC 29539 ANION GAP 5 MEQ/L 2010 Unknown LIPID GROUP 00660 HDL TEST 46 MG/DL 07/06/2010 Unknown LIPID GROUP 86249 TRIG 102 MG/DL 07/06/2010 Unknown LIPID GROUP 11576 TEST LDL 88 MG/DL 07/06/2010 Unknown LIPID GROUP 65580 CHOL 154 MG/DL 07/06/2010 Unknown LIPID GROUP 22949 RCHOL/HDL 3.35 RATIO 07/06/2010 Unknow n Procedures Procedure Codes Date ROUTINE VENIPUNCTURE CPT-4: 84003 03/13/2019 ASSAY THYROID STIM HORMONE CPT-4: 56861 03/13/2019 COMPLETE CBC W/AUTO DIFF WBC CPT-4: 70238 03/13/2019 COMPREHEN METABOLIC PANEL CPT-4: 01714 03/13/2019 ROUTINE VENIPUNCTURE CPT-4: 90337 01/23/2019 LIPID PANEL CPT-4: 35294 01/23/2019 FLU VACC PRSV FREE INC ANTIG 65 AND OLDER CPT-4: 71987 12/26/2018 FLU VACC PRSV FREE INC ANTIG 65 AND OLDER CPT-4: 74554 12/26/2018 ADMIN INFLUENZA VIRUS VAC CPT-4: G0008 12/26/2018 COMPREHEN METABOLIC PANEL CPT-4: 30150 12/15/2018 ROUTINE VENIPUNCTURE CPT-4: 02209 12/15/2018 ROUTINE VENIPUNCTURE CPT-4: 12592 08/14/2018 ASSAY THYROID STIM HORMONE CPT-4: 89752 08/14/2018 COMPREHEN METABOLIC PANEL CPT-4: 93353 08/14/2018 COMPLETE CBC W/AUTO DIFF WBC CPT-4: 30324 08/14/2018 URINALYSIS NONAUTO W/O SCOPE CPT-4: 53712 05/10/2018 URINE CULTURE/ COLONY COUNT CPT-4: 09841 05/10/2018 URINE CULTURE/ COLONY COUNT CPT-4: 93365 12/06/2017 ROUTINE VENIPUNCTURE CPT-4: 97553 11/30/2017 ASSAY OF FREE THYROXINE CPT-4: 94609 11/30/2017 ASSAY THYROID STIM HORMONE CPT-4: 30203 11/30/2017 COMPLETE CBC W/AUTO DIFF WBC CPT-4: 94798 11/30/2017 METABOLIC PANEL TOTAL CA CPT-4: 74298 11/30/2017 FLU VACC PRSV FREE INC ANTIG 65 AND OLDER CPT-4: 37511 11/22/2017 ASSAY, GLUCOSE, BLOOD QUANT CPT-4: 58155 11/22/2017 ADMIN INFLUENZA VIRUS VAC CPT-4: G0008 11/22/2017 ROUTINE VENIPUNCTURE CPT-4: 26426 09/27/2017 COMPREHEN METABOLIC PANEL CPT-4: 46919 09/27/2017 COMPLETE CBC W/AUTO DIFF WBC CPT-4: 11847 09/27/2017 A1C HPLC CPT-4: 84199 09/27/2017 ASSAY OF TROPONIN QUANT CPT-4: 11398 09/27/2017 LIPID PANEL CPT-4: 95700 09/27/2017 THER/PROPH/DIAG INJ SC/IM CPT-4: 59366 05/30/2017 TRIAMCINOLONE ACET INJ NOS CPT-4: J3301 05/30/2017 URINALYSIS NONAUTO W/O SCOPE CPT-4: 99071 04/18/2017 URINE CULTURE/ COLONY COUNT CPT-4: 49590 04/18/2017 FLU VACC PRSV FREE INC ANTIG 65 AND OLDER CPT-4: 59614 12/10/2016 ADMIN INFLUENZA VIRUS VAC CPT-4: G0008 12/10/2016 ROUTINE VENIPUNCTURE CPT-4: 36972 11/01/2016 COMPREHEN METABOLIC PANEL CPT-4: 74860 11/01/2016 COMPLETE CBC W/AUTO DIFF WBC CPT-4: 89940 11/01/2016 LIPID PANEL CPT-4: 98337 11/01/2016 A1C HPLC CPT-4: 23339 11/01/2016 ASSAY THYROID STIM HORMONE CPT-4: 61782 11/01/2016 ROUTINE VENIPUNCTURE CPT-4: 68864 05/13/2016 ASSAY THYROID STIM HORMONE CPT-4: 08643 05/13/2016 COMPREHEN METABOLIC PANEL CPT-4: 41589 05/13/2016 COMPLETE CBC W/AUTO DIFF WBC CPT-4: 16358 05/13/2016 A1C HPLC CPT-4: 76524 05/13/2016 FLU VACC PRSV FREE INC ANTIG 65 AND OLDER CPT-4: 53214 12/12/2015 ADMIN INFLUENZA VIRUS VAC CPT-4: G0008 12/12/2015 ROUTINE VENIPUNCTURE CPT-4: 92533 11/25/2015 ASSAY OF FREE THYROXINE CPT-4: 57753 11/25/2015 ASSAY THYROID STIM HORMONE CPT-4: 66599 11/25/2015 COMPREHEN METABOLIC PANEL CPT-4: 66094 11/25/2015 COMPLETE CBC W/AUTO DIFF WBC CPT-4: 70075 11/25/2015 LIPID PANEL CPT-4: 97876 11/25/2015 A1C HPLC CPT-4: 02076 11/25/2015 URINALYSIS NONAUTO W/O SCOPE CPT-4: 96933 05/21/2015 ROUTINE VENIPUNCTURE CPT-4: 28374 02/19/2015 METABOLIC PANEL TOTAL CA CPT-4: 74629 02/19/2015 PRESCRIP TRANSMIT VIA ERX SY CPT-4: G8553 02/19/2015 FLU VACC PRSV FREE INC ANTIG 65 AND OLDER CPT-4: 71457 12/20/2014 ADMIN INFLUENZA VIRUS VAC CPT-4: G0008 12/20/2014 URINALYSIS NONAUTO W/O SCOPE CPT-4: 02260 11/19/2014 URINE CULTURE/ COLONY COUNT CPT-4: 00398 11/19/2014 ROUTINE VENIPUNCTURE CPT-4: 37127 11/14/2014 ASSAY OF FREE THYROXINE CPT-4: 65604 11/14/2014 ASSAY THYROID STIM HORMONE CPT-4: 19337 11/14/2014 COMPREHEN METABOLIC PANEL CPT-4: 31674 11/14/2014 COMPLETE CBC W/AUTO DIFF WBC CPT-4: 70790 11/14/2014 LIPID PANEL CPT-4: 31041 11/14/2014 A1C HPLC CPT-4: 87976 11/14/2014 CERUM REMOVAL CPT-4: 84049 09/27/2014 PRESCRIP TRANSMIT VIA ERX SY CPT-4: G8553 07/11/2014 FLUZONE, 5ML (Medicare) CPT-4: Q2038 12/21/2013 ADMIN INFLUENZA VIRUS VAC CPT-4: G0008 12/21/2013 PRESCRIP TRANSMIT VIA ERX SY CPT-4: G8553 10/17/2013 PRESCRIP TRANSMIT VIA ERX SY CPT-4: G8553 09/24/2013 PRESCRIP TRANSMIT VIA ERX SY CPT-4: G8553 05/31/2013 ROUTINE VENIPUNCTURE CPT-4: 64242 03/28/2013 ASSAY OF FREE THYROXINE CPT-4: 11697 03/28/2013 ASSAY THYROID STIM HORMONE CPT-4: 50675 03/28/2013 COMPREHEN METABOLIC PANEL CPT-4: 97560 03/28/2013 COMPLETE CBC W/AUTO DIFF WBC CPT-4: 05911 03/28/2013 LIPID PANEL CPT-4: 37790 03/28/2013 A1C HPLC CPT-4: 17998 03/28/2013 VITAMIN B 12 FOLIC ACID CPT-4: 23678|90221 03/28/2013 PRESCRIP TRANSMIT VIA ERX SY CPT-4: G8553 03/26/2013 PRESCRIP TRANSMIT VIA ERX SY CPT-4: G8553 12/19/2012 FLUZONE, 5ML (Medicare) CPT-4: Q2038 11/27/2012 ADMIN INFLUENZA VIRUS VAC CPT-4: G0008 11/27/2012 PRESCRIP TRANSMIT VIA ERX SY CPT-4: G8553 10/04/2012 PRESCRIP TRANSMIT VIA ERX SY CPT-4: G8553 07/14/2012 ROUTINE VENIPUNCTURE CPT-4: 09653 02/23/2012 ASSAY OF FREE THYROXINE CPT-4: 68949 02/23/2012 ASSAY THYROID STIM HORMONE CPT-4: 66160 02/23/2012 COMPREHEN METABOLIC PANEL CPT-4: 16661 02/23/2012 COMPLETE CBC W/AUTO DIFF WBC CPT-4: 51828 02/23/2012 LIPID PANEL CPT-4: 75325 02/23/2012 A1C GLYCOSYLATED HEMOGLOBIN TEST CPT-4: 86985 012 CERUM REMOVAL CPT-4: 99663 02/22/2012 PRESCRIP TRANSMIT VIA ERX SY CPT-4: G8553 02/22/2012 PRESCRIP TRANSMIT VIA ERX SY CPT-4: G8553 12/15/2011 FLUZONE, 5ML (Medicare) CPT-4: Q2038 12/02/2011 ADMIN INFLUENZA VIRUS VAC CPT-4: G0008 12/02/2011 ASSAY, GLUCOSE, BLOOD QUANT CPT-4: 40368 09/21/2011 URINALYSIS NONAUTO W/O SCOPE CPT-4: 48848 09/16/2011 URINE CULTURE/ COLONY COUNT CPT-4: 87919 09/16/2011 ROUTINE VENIPUNCTURE CPT-4: 62150 09/15/2011 ASSAY OF FREE THYROXINE CPT-4: 67748 09/15/2011 ASSAY THYROID STIM HORMONE CPT-4: 54263 09/15/2011 COMPREHEN METABOLIC PANEL CPT-4: 80890 09/15/2011 COMPLETE CBC W/AUTO DIFF WBC CPT-4: 88717 09/15/2011 LIPID PANEL CPT-4: 46319 09/15/2011 ASSAY OF INSULIN CPT-4: 61270 09/15/2011 A1C GLYCOSYLATED HEMOGLOBIN TEST CPT-4: 58588 012 DRAIN/INJECT JOINT/BURSA CPT-4: 47214 08/16/2011 METHYLPREDNISOLONE 40 MG INJ CPT-4: J1030 08/16/2011 TRIAMCINOLONE ACET INJ NOS CPT-4: J3301 08/16/2011 PRESCRIP TRANSMIT VIA ERX SY CPT-4: G8553 08/03/2011 PRESCRIP TRANSMIT VIA ERX SY CPT-4: G8553 07/26/2011 METHYLPREDNISOLONE 40 MG INJ CPT-4: J1030 06/28/2011 DRAIN/INJECT JOINT/BURSA CPT-4: 61879 06/28/2011 TRIAMCINOLONE ACET INJ NOS CPT-4: J3301 06/28/2011 PRESCRIP TRANSMIT VIA ERX SY CPT-4: G8553 06/28/2011 ROUTINE VENIPUNCTURE CPT-4: 22448 04/01/2011 ASSAY OF FREE THYROXINE CPT-4: 42396 04/01/2011 ASSAY THYROID STIM HORMONE CPT-4: 76030 04/01/2011 COMPREHEN METABOLIC PANEL CPT-4: 10696 04/01/2011 COMPLETE CBC W/AUTO DIFF WBC CPT-4: 36680 04/01/2011 LIPID PANEL CPT-4: 47031 04/01/2011 PRESCRIP TRANSMIT VIA ERX SY CPT-4: G8553 03/31/2011 CERUM REMOVAL CPT-4: 20589 02/11/2011 PRESCRIP TRANSMIT VIA ERX SY CPT-4: G8553 02/11/2011 FLUZONE, 5ML (Medicare) CPT-4: Q2038 12/09/2010 ADMIN INFLUENZA VIRUS VAC CPT-4: G0008 12/09/2010 PRESCRIP TRANSMIT VIA ERX SY CPT-4: G8553 10/15/2010 URINALYSIS NONAUTO W/O SCOPE CPT-4: 01852 09/29/2010 URINE CULTURE/ COLONY COUNT CPT-4: 33044 09/29/2010 CUR TOBACCO NON-USER CPT-4: G8457 09/29/2010 ROUTINE VENIPUNCTURE CPT-4: 64114 07/06/2010 COMPLETE CBC W/AUTO DIFF WBC CPT-4: 19133 07/06/2010 COMPREHEN METABOLIC PANEL CPT-4: 48072 07/06/2010 LIPID PANEL CPT-4: 66127 07/06/2010 ASSAY THYROID STIM HORMONE CPT-4: 44031 07/06/2010 ASSAY OF FREE THYROXINE CPT-4: 65024 07/06/2010 PRESCRIP TRANSMIT VIA ERX SY CPT-4: G8553 07/02/2010 INJ TRIGGER POINT 1/2 MUSCL CPT-4: 40172 04/06/2010 TRIAMCINOLONE ACET INJ NOS CPT-4: J3301 04/06/2010 METHYLPREDNISOLONE 40 MG INJ CPT-4: J1030 04/06/2010 THER/PROPH/DIAG INJ SC/IM CPT-4: 66685 04/01/2010 KETOROLAC TROMETHAMINE INJ CPT-4: J1885 04/01/2010 PRESCRIP TRANSMIT VIA ERX SY CPT-4: G8553 01/22/2010 FLU VACCINE 3 YRS & > IM UP 64 CPT-4: 63535 0 ADMIN INFLUENZA VIRUS VAC CPT-4: G0008 12/10/2009 URINALYSIS NONAUTO W/O SCOPE CPT-4: 92398 12/02/2009 URINE CULTURE/ COLONY COUNT CPT-4: 66711 12/02/2009 PRESCRIP TRANSMIT VIA ERX SY CPT-4: G8553 12/02/2009 THER/PROPH/DIAG INJ SC/IM CPT-4: 67577 09/10/2009 VITAMIN B12 INJECTION CPT-4: J3420 09/10/2009 THER/PROPH/DIAG INJ SC/IM CPT-4: 62855 08/11/2009 VITAMIN B12 INJECTION CPT-4: J3420 08/11/2009 ROUTINE VENIPUNCTURE CPT-4: 87052 06/10/2009 Vital Signs Date Vital 03/20/2019 Blood [...] 1: 142/60 Code: 8480-6 BMI: 38.2 Code: 98391-9 Heart Rate 1: 48 bpm Height: 5'2" Respiratory Rate: 20 bpm SpO2: 98% Tempera ture: 36.7 (C) / 98.1 (F) Weight: 212 lbs 01/10/2018 Blood Pressure 1: 142/64 Code: 8480-6 BMI: 38.5 Code: 42211-3 Heart Rate 1: 52 bpm Height: 5'2" Respiratory Rate: 22 bpm SpO2: 96% Tempera ture: 36.1 (C) / 96.9 (F) Weight: 214 lbs 12/06/2017 Blood Pressure 1: 124/80 Code: 8480-6 BMI: 38.3 Code: 67584-0 Heart Rate 1: 68 bpm Height: 5'2" Respiratory Rate: 20 bpm Temperature: 36 .3 (C) / 97.4 (F) Weight: 213 lbs 11/22/2017 Blood Pressure 1: 132/78 Code: 8480-6 BMI: 37.6 Code: 90905-5 Heart Rate 1: 68 bpm Height: 5'2" Respiratory Rate: 20 bpm SpO2: 97% Tempera ture: 36.8 (C) / 98.2 (F) Weight: 209 lbs 10/20/2017 Blood Pressure 1: 150/76 Code: 8480-6 BMI: 38.5 Code: 87496-9 Heart Rate 1: 64 bpm Height: 5'2" Respiratory Rate: 20 bpm SpO2: 97% Tempera ture: 36.2 (C) / 97.2 (F) Weight: 214 lbs 09/27/2017 Blood Pressure 1: 122/74 Code: 8480-6 BMI: 38.2 Code: 37697-0 Heart Rate 1: 64 bpm Height: 5'2" Respiratory Rate: 18 bpm SpO2: 96% Tempera ture: 35.8 (C) / 96.4 (F) Weight: 212 lbs 08/16/2017 Blood Pressure 1: 124/78 Code: 8480-6 BMI: 37.8 Code: 27774-5 Heart Rate 1: 76 bpm Height: 5'2" Respiratory Rate: 20 bpm Temperature: 36 .8 (C) / 98.3 (F) Weight: 210 lbs 07/07/2017 Blood Pressure 1: 136/70 Code: 8480-6 BMI: 38.0 Code: 11255-0 Heart Rate 1: 68 bpm Height: 5'2" Respiratory Rate: 20 bpm SpO2: 97% Tempera ture: 36.8 (C) / 98.2 (F) Weight: 211 lbs 05/30/2017 Blood Pressure 1: 140/65 Code: 8480-6 Heart Rate 1: 75 bpm Respiratory Rate: 24 bpm SpO2: 95% Temperature: 37.0 (C) / 98.6 (F) We ight: 211 lbs 04/18/2017 Blood Pressure 1: 154/70 Code: 8480-6 BMI: 37.6 Code: 23483-1 Heart Rate 1: 76 bpm Height: 5'2" Respiratory Rate: 20 bpm SpO2: 98% Tempera ture: 36.9 (C) / 98.5 (F) Weight: 209 lbs 10/25/2016 Blood Pressure 1: 156/70 Code: 8480-6 BMI: 37.1 Code: 56447-0 Heart Rate 1: 72 bpm Height: 5'2" Respiratory Rate: 20 bpm SpO2: 97% Tempera ture: 37.0 (C) / 98.6 (F) Weight: 206 lbs 09/20/2016 Blood Pressure 1: 152/78 Code: 8480-6 BMI: 36.8 Code: 74378-7 Heart Rate 1: 78 bpm Height: 5'2" Respiratory Rate: 20 bpm SpO2: 98% Tempera ture: 36.1 (C) / 97.0 (F) Weight: 204 lbs 05/12/2016 Blood Pressure 1: 142/70 Code: 8480-6 BMI: 36.9 Code: 95477-4 Heart Rate 1: 64 bpm Height: 5'2" [...] 1: 122/64 Code: 8480-6 BMI: 39.1 Code: 76912-9 Heart Rate 1: 76 bpm Height: 5'2" Respiratory Rate: 20 bpm Temperature: 36 .8 (C) / 98.2 (F) Weight: 217 lbs 05/21/2015 Blood Pressure 1: 144/70 Code: 8480-6 BMI: 39.4 Code: 28372-6 Heart Rate 1: 76 bpm Height: 5'2" Respiratory Rate: 20 bpm Temperature: 36 .6 (C) / 97.9 (F) Weight: 219 lbs 02/19/2015 Blood Pressure 1: 152/60 Code: 8480-6 BMI: 39.6 Code: 10381-0 Heart Rate 1: 84 bpm Height: 5'2" Respiratory Rate: 20 bpm Temperature: 37 .0 (C) / 98.6 (F) Weight: 220 lbs 11/13/2014 Blood Pressure 1: 146/76 Code: 8480-6 BMI: 39.8 Code: 48794-0 Heart Rate 1: 88 bpm Height: 5'2" Respiratory Rate: 20 bpm Temperature: 37 .0 (C) / 98.6 (F) Weight: 221 lbs 09/27/2014 Blood Pressure 1: 132/70 Code: 8480-6 BMI: 39.1 Code: 43334-7 Heart Rate 1: 88 bpm Height: 5'2" Respiratory Rate: 20 bpm Temperature: 36 .4 (C) / 97.6 (F) Weight: 217 lbs 07/11/2014 Blood Pressure 1: 132/66 Code: 8480-6 BMI: 39.9 Code: 77234-0 Heart Rate 1: 72 bpm Height: 5'2" Respiratory Rate: 20 bpm Temperature: 36 .9 (C) / 98.4 (F) Weight: 218 lbs 05/23/2014 Blood Pressure 1: 136/80 Code: 8480-6 Heart Rate 1: 76 bpm Respiratory Rate: 20 bpm Temperature: 36.7 (C) / 98.0 (F) Weight: 224 lbs 03/20/2014 Blood Pressure 1: 134/78 Code: 8480-6 BMI: 39.7 Code: 44065-2 Heart Rate 1: 84 bpm Height: 5'2" Respiratory Rate: 20 bpm Temperature: 36 .7 (C) / 98.0 (F) Weight: 217 lbs 10/17/2013 Blood Pressure 1: 146/78 Code: 8480-6 BMI: 39.5 Code: 29351-0 Heart Rate 1: 82 bpm Height: 5'2" Respiratory Rate: 18 bpm Temperature: 35 .6 (C) / 96.1 (F) Weight: 216 lbs 09/24/2013 Blood Pressure 1: 134/70 Code: 8480-6 BMI: 37.9 Code: 95233-3 Heart Rate 1: 80 bpm Height: 5'3" Respiratory Rate: 20 bpm Temperature: 36 .8 (C) / 98.2 (F) Weight: 214 lbs 05/31/2013 Blood Pressure 1: 132/70 Code: 8480-6 BMI: 37.6 Code: 03359-6 Heart Rate 1: 80 bpm Height: 5'3" Respiratory Rate: 20 bpm Temperature: 36 .8 (C) / 98.3 (F) Weight: 212 lbs 03/26/2013 Blood Pressure 1: 116/74 Code: 8480-6 Heart Rate 1: 68 bpm Respiratory Rate: 20 bpm Temperature: 36.2 (C) / 97.1 (F) Weight: 212 lbs 12/19/2012 Blood Pressure 1: 132/82 Code: 8480-6 BMI: 37.4 Code: 36111-5 Heart Rate 1: 76 bpm Height: 5'3" Respiratory Rate: 20 bpm Temperature: 36 .7 (C) / 98.0 (F) Weight: 211 lbs 12/04/2012 Blood Pressure 1: 130/76 Code: 8480-6 He art Rate 1: 78 bpm 11/27/2012 Blood Pressure 1: 140/82 Code: 8480-6 BMI: 36.8 Code: 80868-9 Heart Rate 1: 66 bpm Height: 5'3" Respiratory Rate: 20 bpm Temperature: 36 .1 (C) / 96.9 (F) Weight: 208 lbs 10/04/2012 Blood Pressure 1: 138/80 Code: 8480-6 BMI: 36.4 Code: 24334-1 Heart Rate 1: 72 bpm Height: 5'4" Respiratory Rate: 20 bpm Temperature: 36 .7 (C) / 98.0 (F) Weight: 212 lbs 07/27/2012 Blood Pressure 1: 124/70 Code: 8480-6 BMI: 36.9 Code: 40423-0 Heart Rate 1: 60 bpm Height: 5'4" Temperature: 36.1 (C) / 97.0 (F) Weight: 215 lbs 07/14/2012 Blood Pressure 1: 132/86 Code: 8480-6 BMI: 36.9 Code: 76516-4 Heart Rate 1: 76 bpm Height: 5'4" Respiratory Rate: 20 bpm Temperature: 36 .8 (C) / 98.2 (F) Weight: 215 lbs 06/08/2012 Blood Pressure 1: 134/82 Code: 8480-6 BMI: 36.6 Code: 50508-9 Heart Rate 1: 72 bpm Height: 5'4" Respiratory Rate: 20 bpm Temperature: 36 .3 (C) / 97.4 (F) Weight: 213 lbs 02/22/2012 Blood Pressure 1: 142/80 Code: 8480-6 BMI: 37.1 Code: 24364-0 Heart Rate 1: 76 bpm Height: 5'4" Respiratory Rate: 20 bpm Temperature: 36 .8 (C) / 98.3 (F) Weight: 216 lbs 12/28/2011 Blood Pressure 1: 128/68 Code: 8480-6 BMI: 37.6 Code: 85376-4 Heart Rate 1: 72 bpm Height: 5'4" [...] 1: 128/78 Code: 8480-6 BMI: 38.1 Code: 49674-9 Heart Rate 1: 84 bpm Height: 5'4" Respiratory Rate: 20 bpm Temperature: 36 .9 (C) / 98.4 (F) Weight: 222 lbs 08/16/2011 Blood Pressure 1: 138/80 Code: 8480-6 BMI: 37.9 Code: 46238-9 Heart Rate 1: 74 bpm Height: 5'4" Temperature: 36.1 (C) / 97.0 (F) Weight: 221 lbs 08/03/2011 Blood Pressure 1: 126/78 Code: 8480-6 BMI: 38.4 Code: 64785-7 Heart Rate 1: 72 bpm Height: 5'4" Respiratory Rate: 20 bpm Temperature: 36 .7 (C) / 98.0 (F) Weight: 224 lbs 07/26/2011 Blood Pressure 1: 138/72 Code: 8480-6 BMI: 38.4 Code: 18323-9 Heart Rate 1: 72 bpm Height: 5'4" Respiratory Rate: 20 bpm Temperature: 36 .6 (C) / 97.9 (F) Weight: 224 lbs 06/28/2011 Blood Pressure 1: 122/78 Code: 8480-6 BMI: 38.8 Code: 77499-3 Heart Rate 1: 88 bpm Height: 5'4" Respiratory Rate: 20 bpm Temperature: 36 .6 (C) / 97.8 (F) Weight: 226 lbs 03/31/2011 Blood Pressure 1: 116/60 Code: 8480-6 BMI: 38.1 Code: 53834-8 Heart Rate 1: 92 bpm Height: 5'4" Respiratory Rate: 20 bpm Temperature: 36 .8 (C) / 98.2 (F) Weight: 222 lbs 02/11/2011 Blood Pressure 1: 118/62 Code: 8480-6 BMI: 37.9 Code: 80994-1 Heart Rate 1: 80 bpm Height: 5'4" Temperature: 36.5 (C) / 97.7 (F) Weight: 221 lbs 10/15/2010 Blood Pressure 1: 132/70 Code: 8480-6 Heart Rate 1: 84 bpm Respiratory Rate: 20 bpm Temperature: 36.7 (C) / 98.0 (F) Weight: 221 lbs 09/29/2010 Blood Pressure 1: 114/72 Code: 8480-6 BMI: 37.6 Code: 56468-1 Heart Rate 1: 76 bpm Height: 5'4" [...] 1: 120/70 Code: 8480-6 BMI: 38.3 Code: 81254-0 Heart Rate 1: 88 bpm Height: 5'5" [...] 09/27/2014 pain, limb 07/11/2014 follow up 05/23/2014 [facility] high blood pressure 03/20/2014 injection(s) 12/21/2013 [...] I10] Diagnosis: Palpitations[ICD10: R00.2] Vikki AMADOR CPT-4: 55093 03/20/2019 ([id number]) OFFICE/OUTPATIENT VISIT EST Diagnosis: Essential hypertension[ICD10: I10] Diagnosis: Palpitations[ICD10: R00.2] Diagnosis: Stress reaction[ICD10: F43.0] Vikki GUAMAN DO [facility] CPT-4: 29468 03/13/2019 ([id number]) NURSE/OUTPATIENT VISIT EST Diagnosis: Mixed hyperlipidemia[ICD10: E78.2] Vikki GUAMAN DO [facility] CPT-4: 81079 01/23/2019 ([id number]) NURSE/OUTPATIENT VISIT EST Diagnosis: FLU VACCINE[ICD10: Z23] Vikki BALL DO [facility] CPT-4: 41032 12/26/2018 ([id number]) NURSE/OUTPATIENT VISIT EST Diagnosis: Chronic kidney disease, stage 1[ICD10: N18.1] Vikki GUAMAN DO [facility] CPT-4: 12327 12/15/2018 ([id number]) OFFICE/OUTPATIENT VISIT EST Diagnosis: Acute serous otitis media, left ear[ICD10: H65.02] Jennifer GUAMAN DO [facility] CPT-4: 23890 11/07/2018 ([id number]) OFFICE/OUTPATIENT VISIT EST Diagnosis: Essential (primary) hypertension[ICD10: I10] Diagnosis: 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] Diagnosis: Hypoglycemia, unspecified[ICD10: E16.2] Diagnosis: Other fatigue[ICD10: R53.83] Diagnosis: Urinary tract infection, site not specified[ICD10: N39.0] Vikki GUAMAN DO [facility] CPT-4: 41084 08/14/2018 ([id number]) OFFICE/OUTPATIENT VISIT EST Diagnosis: Essential (primary) hypertension[ICD10: I10] Diagnosis: Gastro-esophageal reflux disease without esophagitis[ICD10: K21.9] Diagnosis: Urinary tract infection, site not specified[ICD10: N39.0] Vikki GUAMAN DO [facility] CPT-4: 24353 05/10/2018 ([id number]) OFFICE/OUTPATIENT VISIT EST Diagnosis: Gastro-esophageal reflux disease without esophagitis[ICD10: K21.9] Diagnosis: Epigastric pain[ICD10: R10.13] Vikki GUAMAN DO [facility] CPT-4: 29284 02/14/2018 ([id number]) OFFICE/OUTPATIENT VISIT EST Diagnosis: 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 CPT-4: 28136 01/10/2018 OFFICE/OUTPATIENT VISIT EST Diagnosis: Gastro-esophageal reflux disease without esophagitis[ICD10: K21.9] Diagnosis: Palpitations[ICD10: R00.2] Diagnosis: Urinary tract infection, site not specified[ICD10: N39.0] Diagnosis: Generalized anxiety disorder[ICD10: F41.1] Vikki GUAMAN 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 CPT-4: 30825 11/30/2017 OFFICE/OUTPATIENT VISIT EST Diagnosis: Epigastric pain[ICD10: R10.13] Diagnosis: Generalized anxiety disorder[ICD10: F41.1] Diagnosis: FLU VACCINE[ICD10: Z23] Vikki CID [facility] CPT-4: 12525 11/22/2017 ([id number]) OFFICE/OUTPATIENT VISIT EST Diagnosis: Essential (primary) hypertension[ICD10: I10] Diagnosis: Hypoglycemia, unspecified[ICD10: E16.2] Diagnosis: Gastro-esophageal reflux disease without esophagitis[ICD10: K21.9] Vikki GUAMAN [facility] CPT-4: 91707 10/20/2017 ([id number]) OFFICE/OUTPATIENT VISIT EST Diagnosis: Dizziness and giddiness[ICD10: R42] Jennifer GUAMAN [employer] [facility] CPT-4: 36093 09/27/2017 ([id number]) OFFICE/OUTPATIENT VISIT EST Diagnosis: Cervicalgia[ICD10: M54.2] Diagnosis: Other spondylosis with radiculopathy, cervical region[ICD10: M47.22] Vikki GUAMAN [facility] CPT-4: 25543 08/16/2017 ([id number]) OFFICE/OUTPATIENT VISIT EST Diagnosis: Hypoglycemia, unspecified[ICD10: E16.2] Diagnosis: Other spondylosis with radiculopathy, cervical region[ICD10: M47.22] Diagnosis: Vertigo of central origin, 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] Diagnosis: 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] Vikki Deniz GUAMAN [employer] [facility] CPT-4: 84953 07/07/2017 ([id number]) OFFICE/OUTPATIENT VISIT EST Diagnosis: Benign paroxysmal vertigo, bilateral[ICD10: H81.13] Diagnosis: Otalgia, bilateral[ICD10: H92.03] Jennifer GUAMAN [employer] [facility] CPT-4: 60471 05/30/2017 ([id number]) OFFICE/OUTPATIENT VISIT EST Diagnosis: Low back pain[ICD10: M54.5] Diagnosis: Radiculopathy, lumbosacral region[ICD10: M54.17] Diagnosis: Left lower quadrant pain[ICD10: R10.32] Vikki CRISOSTOMO Alyssa CID [employer] [facility] CPT-4: 97031 04/18/2017 ([id number]) OFFICE/OUTPATIENT VISIT EST Diagnosis: FLU VACCINE[ICD10: Z23] Vikki Csicobhavya KEARNEYVIKKI Alyssa BALL [employer] [facility] CPT-4: 31264 12/10/2016 ([id number]) OFFICE/OUTPATIENT VISIT EST Diagnosis: Mixed hyperlipidemia[ICD10: E78.2] Diagnosis: Essential (primary) hypertension[ICD10: I10] Diagnosis: Atherosclerotic heart disease of [place] coronary artery without angina pectoris[ICD10: I25.10] Diagnosis: Impaired fasting glucose[ICD10: R73.01] Diagnosis: Other fatigue[ICD10: R53.83] Vikki GUAMAN DO [facility] CPT-4: 56460 11/01/2016 ([id number]) OFFICE/OUTPATIENT VISIT EST Diagnosis: Pain in thoracic spine[ICD10: M54.6] Diagnosis: Other intervertebral disc degeneration, 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] Vikki GUAMAN DO [facility] CPT-4: 62507 10/25/2016 ([id number]) OFFICE/OUTPATIENT VISIT EST Diagnosis: Left lower quadrant pain[ICD10: R10.32] Diagnosis: Low back pain[ICD10: M54.5] Vikki CORTEZLINE Alyssa RUBI DO [facility] CPT-4: 62793 09/20/2016 ([id number]) OFFICE/OUTPATIENT VISIT EST Diagnosis: Mixed hyperlipidemia[ICD10: E78.2] Diagnosis: Essential (primary) hypertension[ICD10: I10] Diagnosis: Hypoglycemia, unspecified[ICD10: E16.2] Vikki GUAMAN [facility] CPT-4: 60434 05/13/2016 ([id number]) OFFICE/OUTPATIENT VISIT EST Diagnosis: Impaired fasting glucose[ICD10: R73.01] Diagnosis: Mastodynia[ICD10: N64.4] Diagnosis: Mixed hyperlipidemia[ICD10: E78.2] Diagnosis: Essential (primary) hypertension[ICD10: I10] Diagnosis: Other fatigue[ICD10: R53.83] Vikki Ciscofunmilayosakshi CORTEZVIKKI AlejandraSujata [facility]IZ [facility] CPT-4: 17618 05/12/2016 ([id number]) OFFICE/OUTPATIENT VISIT EST Diagnosis: Acute upper respiratory infection, unspecified[ICD10: J06.9] Yue CORTEZLINE Alyssa GUAMAN DO [facility] CPT-4: 29734 03/18/2016 ([id number]) OFFICE/OUTPATIENT VISIT EST Diagnosis: Acute mastoiditis without complications, right ear[ICD10: H70.001] Vikkiluther KEARNEYQUELINE AlejandraSujata DENIZ [facility] CPT-4: 32670 02/06/2016 ([id number]) OFFICE/OUTPATIENT VISIT EST Diagnosis: FLU VACCINE[ICD10: Z23] Vikki PIKE AlejandraSujata [facility]AK 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 CPT-4: 26975 11/25/2015 ([id number]) OFFICE/OUTPATIENT VISIT EST Diagnosis: Constipation, unspecified[ICD10: K59.00] Vikki GUAMAN [facility] CPT-4: 61781 08/26/2015 ([id number]) OFFICE/OUTPATIENT VISIT EST Diagnosis: Essential (primary) hypertension[ICD10: I10] Diagnosis: Mixed hyperlipidemia[ICD10: E78.2] Diagnosis: Chronic kidney disease, stage 1[ICD10: N18.1] Vikki GUAMAN [facility] CPT-4: 70824 05/21/2015 ([id number]) OFFICE/OUTPATIENT VISIT EST Diagnosis: Muscle weakness (generalized)[ICD10: M62.81] Diagnosis: Dizziness and giddiness[ICD10: R42] Diagnosis: Essential (primary) hypertension[ICD10: I10] Diagnosis: History of falling[ICD10: Z91.81] Vikki Peckfunmilayosakshi GUAMAN [facility] CPT-4: 54606 02/19/2015 ([id number]) OFFICE/OUTPATIENT VISIT EST Diagnosis: FLU VACCINE[ICD10: Z23] Vikki BALL [facility] CPT-4: 10109 12/20/2014 ([id number]) OFFICE/OUTPATIENT VISIT EST Diagnosis: Acute renal failure[ICD9: 584.9] Diagnosis: POLYURIA[ICD9: 788.42] Vikki Rees [facility] CPT-4: 55650 11/19/2014 ([id number]) OFFICE/OUTPATIENT VISIT EST Diagnosis: HYPERLIPIDEMIA NEC/NOS[ICD9: 272.4] Diagnosis: HYPERTENSION[ICD9: 401.9] Diagnosis: CAD[ICD9: 414.00] Diagnosis: Hyperglycemia[ICD9: 790.29] Diagnosis: MALAISE AND FATIGUE[ICD9: 780.79] Vikki GUAMAN DO [facility] CPT-4: 49121 11/14/2014 ([id number]) OFFICE/OUTPATIENT VISIT EST Diagnosis: MALAISE AND FATIGUE[ICD9: 780.79] Diagnosis: HYPOGLYCEMIA[ICD9: 251.2] Diagnosis: Grieving[ICD9: 309.0] Diagnosis: ABDOMINAL PAIN[ICD9: 789.00] Vikki GUAMAN DO [facility] CPT-4: 30798 11/13/2014 OFFICE/OUTPATIENT VISIT EST Diagnosis: CERUMEN IMPACTION[ICD9: 380.4] Diagnosis: EUSTACHIAN TUBE DYSFUNCTION[ICD9: 381.81] Jessenia EcheverriaShemargarito GUAMAN DO [facility] CPT-4: 04774 09/27/2014 ([id number]) OFFICE/OUTPATIENT VISIT EST Diagnosis: Leg pain[ICD9: 729.5] Diagnosis: SUPERFIC PHLEBITIS-LEG[ICD9: 451.0] Vikki GUAMAN [employer] [facility] CPT-4: 38576 07/11/2014 ([id number]) OFFICE/OUTPATIENT VISIT EST Diagnosis: Thoracic back pain[ICD9: 724.1] Diagnosis: SPASM OF MUSCLE[ICD9: 728.85] Vikki GUAMAN DO [facility] CPT-4: 31198 05/23/2014 ([id number]) OFFICE/OUTPATIENT VISIT EST Diagnosis: DIZZINESS/VERTIGO[ICD9: 780.4] Diagnosis: Benign positional vertigo[ICD9: 386.11] Diagnosis: HYPERTENSION[ICD9: 401.9] Diagnosis: Suspicious nevus[ICD9: 238.2] Vikki GUAMAN DO [facility] CPT-4: 79322 03/20/2014 ([id number]) OFFICE/OUTPATIENT VISIT EST Diagnosis: FLU VACCINE[ICD10: Z23] Vikki BALL DO [facility] CPT-4: 98832 12/21/2013 OFFICE/OUTPATIENT VISIT EST Diagnosis: SINUSITIS, ACUTE[ICD9: 461.9] Diagnosis: EUSTACHIAN TUBE DYSFUNCTION[ICD9: 381.81] Jessenia GUAMAN [facility] CPT-4: 88732 10/17/2013 ([id number]) OFFICE/OUTPATIENT VISIT EST Diagnosis: DIZZINESS/VERTIGO[ICD9: 780.4] Diagnosis: HYPERTENSION[ICD9: 401.9] Vikki PECK [facility] CPT-4: 40890 09/24/2013 ([id number]) OFFICE/OUTPATIENT VISIT EST Diagnosis: HYPERTENSION[ICD9: 401.9] Diagnosis: MALAISE AND FATIGUE[ICD9: 780.79] Diagnosis: SINUSITIS, ACUTE[ICD9: 461.9] [facility]: 71203 05/31/2013 ([id number]) OFFICE/OUTPATIENT VISIT EST Diagnosis: HYPERLIPIDEMIA NEC/NOS[ICD9: 272.4] Diagnosis: HYPERTENSION[ICD9: 401.9] Diagnosis: B12 DEFIC ANEMIA NEC[ICD9: 281.1] Diagnosis: HYPOGLYCEMIA[ICD9: 251.2] Vikki PECK [facility] CPT-4: 11640 03/28/2013 OFFICE/OUTPATIENT VISIT EST Diagnosis: COUGH[ICD9: 786.2] Jessenia GUAMAN [facility] CPT-4: 76798 03/26/2013 OFFICE/OUTPATIENT VISIT EST Diagnosis: COUGH[ICD9: 786.2] Diagnosis: URI, ACUTE[ICD9: 465.9] Jessenia [facility] CPT-4: 79703 12/19/2012 ([id number]) OFFICE/OUTPATIENT VISIT EST Diagnosis: HYPERTENSION[ICD9: 401.9] Diagnosis: CEPHALGIA[ICD9: 784.0] Diagnosis: ANXIETY STATE NOS[ICD9: 300.00] Diagnosis: FLU VACCINE[ICD9: V04.81] [facility]: 35452 11/27/2012 ([id number]) OFFICE/OUTPATIENT VISIT EST Diagnosis: DIZZINESS/VERTIGO[ICD9: 780.4] Diagnosis: SINUSITIS, ACUTE[ICD9: 461.9] Diagnosis: Benign positional vertigo[ICD9: 386.11] Vikki Ciscobhavya KEARNEY CHILANGOLUTHER AlejandraSujata [facility] CPT-4: 60095 10/04/2012 OFFICE/OUTPATIENT VISIT EST Diagnosis: OTITIS MEDIA NOS[ICD9: 382.9] Vikki Peckfunmilayosakshi CORTEZVIKKI AlejandraSjuata [facility] CPT-4: 56864 07/27/2012 OFFICE/OUTPATIENT VISIT EST Diagnosis: Perforation of ear drum[ICD9: 384.20] Diagnosis: SINUSITIS, ACUTE[ICD9: 461.9] Vikki Peckbhavya VIKKI AlejandraSujata [facility]IZ [facility] CPT-4: 35383 07/14/2012 ([id number]) OFFICE/OUTPATIENT VISIT EST Diagnosis: Mastalgia[ICD9: 611.71] Vikki Ciscobhavya VIKKI AlejandraSujata [facility] CPT-4: 93776 06/08/2012 ([id number]) OFFICE/OUTPATIENT VISIT EST Diagnosis: HYPERLIPIDEMIA NEC/NOS[ICD9: 272.4] Diagnosis: HYPERTENSION[ICD9: 401.9] Diagnosis: DIZZINESS/VERTIGO[ICD9: 780.4] Diagnosis: Hyperglycemia[ICD9: 790.29] Diagnosis: MALAISE AND FATIGUE[ICD9: 780.79] Vikkigabriel Conde AlejandraSujata [facility] CPT-4: 40269 02/23/2012 ([id number]) OFFICE/OUTPATIENT VISIT EST Diagnosis: EUSTACHIAN TUBE DYSFUNCTION[ICD9: 381.81] Diagnosis: DIZZINESS/VERTIGO[ICD9: 780.4] Diagnosis: ABDOMINAL PAIN[ICD9: 789.00] Diagnosis: GERD[ICD9: 530.81] Diagnosis: CERUMEN IMPACTION[ICD9: 380.4] Vikki Ciscobhavya PIKE Alejandra Sujata [facility] CPT-4: 33175 02/22/2012 OFFICE/OUTPATIENT VISIT EST Diagnosis: ABDOMINAL PAIN[ICD9: 789.00] Diagnosis: DYSPEPSIA[ICD9: 536.8] Vikki Shah CISCORUBI Rees [facility] CPT-4: 00406 12/28/2011 ([id number]) OFFICE/OUTPATIENT VISIT EST Diagnosis: ABDOMINAL PAIN[ICD9: 789.00] Diagnosis: DYSPEPSIA[ICD9: 536.8] Diagnosis: IBS[ICD9: 564.1] Vikki GUAMAN [facility] CPT - 4: 06728 12/15/2011 OFFICE/OUTPATIENT VISIT EST Diagnosis: DIZZINESS/VERTIGO[ICD9: 780.4] Diagnosis: HYPOGLYCEMIA[ICD9: 251.2] Vikki MARTINEZ [facility] CPT-4: 69802 09/21/2011 ([id number]) OFFICE/OUTPATIENT VISIT EST Diagnosis: URINARY TRACT INFECTION[ICD9: 599.0] Vikki GUAMAN [facility] CPT-4: 12340 09/16/2011 ([id number]) OFFICE/OUTPATIENT VISIT EST Diagnosis: HYPERLIPIDEMIA NEC/NOS[ICD9: 272.4] Diagnosis: HYPERTENSION[ICD9: 401.9] Diagnosis: MALAISE AND FATIGUE[ICD9: 780.79] Diagnosis: DIZZINESS/VERTIGO[ICD9: 780.4] Vikki GUAMAN [facility] CPT-4: 36775 09/15/2011 ([id number]) OFFICE/OUTPATIENT VISIT EST Diagnosis: DIZZINESS/VERTIGO[ICD9: 780.4] Diagnosis: MALAISE AND FATIGUE[ICD9: 780.79] Diagnosis: HYPERTENSION[ICD9: 401.9] Vikki MARTINEZ [facility] CPT-4: 87792 09/13/2011 OFFICE/OUTPATIENT VISIT EST Diagnosis: LUMB/LUMBOSAC DISC DEGEN[ICD9: 722.52] Diagnosis: Radiculopathy of leg[ICD9: 724.4] Diagnosis: 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] Diagnosis: SPINAL ENTHESOPATHY[ICD9: 720.1] Vikki GUAMAN [facility] CPT-4: 60499 08/16/2011 ([id number]) OFFICE/OUTPATIENT VISIT EST Diagnosis: PAIN, LOWER BACK[ICD9: 724.2] Diagnosis: SPASM OF MUSCLE[ICD9: 728.85] Diagnosis: SCIATICA[ICD9: 724.3] Diagnosis: Lumbar degenerative disc disease[ICD9: 722.52] Vikki GUAMAN DO [facility] CPT-4: 98853 08/03/2011 ([id number]) OFFICE/OUTPATIENT VISIT EST Diagnosis: PAIN IN THORACIC SPINE[ICD9: 724.1] Diagnosis: SPASM OF MUSCLE[ICD9: 728.85] Vikki GUAMAN DO [facility] CPT-4: 56608 07/26/2011 ([id number]) OFFICE/OUTPATIENT VISIT EST Diagnosis: PAIN, LOWER BACK[ICD9: 724.2] Diagnosis: SPASM OF MUSCLE[ICD9: 728.85] Diagnosis: Sacroiliac dysfunction[ICD9: 739.4] Diagnosis: Lumbar degenerative disc disease[ICD9: 722.52] Vikki GUAMAN DO [facility] CPT-4: 71074 06/28/2011 OFFICE/OUTPATIENT VISIT EST Diagnosis: MALAISE AND FATIGUE[ICD9: 780.79] Diagnosis: HYPOTENSION[ICD9: 458.9] Diagnosis: CAD[ICD9: 414.00] Vikki GUAMAN DO [facility] CPT-4: 76979 03/31/2011 OFFICE/OUTPATIENT VISIT EST Diagnosis: SINUSITIS, ACUTE[ICD9: 461.9] Diagnosis: PHARYNGITIS, ACUTE[ICD9: 462] Diagnosis: CERUMEN IMPACTION[ICD9: 380.4] Vikki GUAMAN DO [facility] CPT-4: 78189 02/11/2011 OFFICE/OUTPATIENT VISIT EST Diagnosis: PAIN IN THORACIC SPINE[ICD9: 724.1] Diagnosis: GERD[ICD9: 530.81] Diagnosis: DIZZINESS/VERTIGO[ICD9: 780.4] Vikki GUAMAN DO [facility] CPT-4: 56520 10/15/2010 OFFICE/OUTPATIENT VISIT EST Vikki MARTINEZ DO [facility] CPT- 4: 78722 09/29/2010 ([id number]) OFFICE/OUTPATIENT VISIT EST Vikki GUAMAN DO [facility] CPT-4: 86489 07/02/2010 ([id number]) OFFICE/OUTPATIENT VISIT, EST Diagnosis: PAIN, LOWER BACK[ICD9: 724.2] Vikki PIKE SSujata [facility] CPT-4: 64218 04/06/2010 ([id number]) OFFICE/OUTPATIENT VISIT, EST Vikki CRISOSTOMO [facility] CPT-4: 31246 04/01/2010 ([id number]) OFFICE/OUTPATIENT VISIT, EST Vikki CRISOSTOMO [facility] CPT-4: 38125 01/22/2010 ([id number]) OFFICE/OUTPATIENT VISIT, EST Vikki KEELINE S[facility] CPT-4: 79055 12/02/2009 ([id number]) OFFICE/OUTPATIENT VISIT, EST Vikki [facility]ISOSTOMO [facility] CPT-4: 65003 10/21/2009 ([id number]) OFFICE/OUTPATIENT VISIT, EST Vikki CRISOSTOMO [facility] CPT-4: 20603 09/10/2009 ([id number]) OFFICE/OUTPATIENT VISIT, EST Vikki [facility] CPT-4: 61795 08/11/2009 ([id number]) OFFICE/OUTPATIENT VISIT, EST Vikki CRISOSTOMO [facility] CPT-4: 64809 06/09/2009 Plan of Care Planned Activity Notes Codes Status Date Visit Diagnosis Plan: Essential (primary) hypertension Discussion: Improving with higher dose of metoprolol Recheck 2weeks ICD-9 : 401.9 ICD-10 : I10 03/20/2019 Visit Diagnosis Plan: Palpitations Discussion: Continu e higher dose of metoprolol ICD-9 : 785.1 ICD-10 : R00.2 03/20/2019 Appointment: [phone] [facility] 03/13/2019--moved up to 03/13/19 at 4pm (km) [place] 03/15/2019 Visit Diagnosis Plan: Essential hypertension Discussio n: Increase metoprolol to 25mg q AM and 50mg po q pM Recheck 1 week ICD-9 : 401.9 ICD-10 : I10 03/13/2019 Visit Diagnosis Plan: Palpitations Discussion: Check C BC, CMP, TSH ICD-9 : 785.1 ICD-10 : R00.2 03/13/2019 Appointment: Vikki Guaman WPtel: [address] [place] [address] BP CHECK 03/13/2019 Appointment: Vikki Guaman WPtel: [address] [place] [address] ACUTE ILLNESS 03/13/2019 Patient Education: metoprolol tartrate- [employer] [facility] [id number] https://www.rag [employer] bone/samplemd/resources/getResource/61/9v209441-1937-9b44-8a Completed 03/13/2019 Care Plan: X-RAY EXAM NECK SPINE 4/5VWS LOINC : 72266-1 Pending 03/13/2019 Care Plan: X-RAY EXAM THORAC SPINE4/>VW LOINC : 42344-5 Pending 03/13/2019 Appointment: Vikki Guaman WPtel: [address] [place] [address] LAB 01/23/2019 Appointment: Vikki Guaman WPtel: [address] [place], [place] [phone] [place] INJECTION 12/26/2018 Patient Education: INFLUENZA VACCINE [facility] Completed 12/26/2018 Appointment: Vikki Guaman WPtel: [address] [place], [place] [phone] [place] LAB 12/15/2018 Visit Diagnosis Plan: Acute [...] ICD-10 : H65.02 11/07/2018 Appointment: Jennifer Rosario [address] [place], [place] [id number] ACUTE ILLNESS 11/07/2018 Visit Diagnosis Plan: Hypoglycemia, [...] : N39.0 08/14/2018 Appointment: Vikki Guaman WPtel: [address] [place], [place] [phone] US FOLLOW UP 08/14/2018 Visit Diagnosis Plan: [...] : I10 05/10/2018 Appointment: Vikki Guaman WPtel: [address] [place], [place] [id number] [place] FOLLOW UP 05/10/2018 Patient Education: metoprolol tartrate- [employer] [facility] [id number] https://www.[employer].com/samplemd/resources/getResource/61/806s0f45-9dgj-15mo-99 Completed 05/10/2018 Appointment: Vikki Guaman WPtel: [address] [place], [place] [id number] [place] CANCELED 04/21/2018 Visit Diagnosis Plan: Gastro-esophageal reflux disease without esophagitis Discussion: Continue protonix and carafate Proceed with updated EGD ICD-9 : 530.81 ICD-10 : K21.9 02/14/2018 Visit Diagnosis Plan: Epigastric pain Discussion: [facility] CT abdomen/pelvis due to ongoing abdominal pain ICD-9 : 789.06 ICD-10 : R10.13 02/14/2018 Appointment: Vikki Guaman WPtel: [facility] US FOLLOW UP 02/14/2018 Care Plan: CT PELVIS W/O DYE LOINC : 361 08-9 Pending 02/14/2018 Care Plan: CT ABDOMEN W/O DYE LOINC : 36 103-0 Pending 02/14/2018 Care Plan: Referral Order SNOMED-CT : [id number] Pending 02/14/2018 Visit Diagnosis Plan: Atherosclerotic he art disease of [place] coronary artery without angina pectoris Discussion: [...] : F41.1 01/10/2018 Appointment: Vikki Guaman WPtel: [facility] US FOLLOW UP 01/10/2018 Visit Diagnosis Plan: [...] 599.0 ICD-10 : N39.0 12/06/2017 Appointment: Vikki Guamna WPtel: [address] [place] [address] FOLLOW UP 12/06/2017 Patient Education: Patient Medication Summary Completed 12/06/2017 Appointment: Vikki Guaman WPtel: [address] [place] [address] LAB 11/30/2017 Patient Education: Patient Medication Summary [...] : R10.13 11/22/2017 Appointment: Vikki Guaman WPtel: [address] [place] [address] FOLLOW UP 11/22/2017 Patient Education: Patient Medication [...] K21.9 10/20/2017 Appointment: Vikki Guaman WPtel: [phone] ACUTE ILLNESS 10/20/2017 Patient Education: Patient Medication Summary Completed 10/20/2017 Visit Diagnosis Plan: Dizziness and giddiness Discussi on: blood work to be completed in office including cmp, cbc, troponin to rule out glucose intolerance, infection, dehydration. 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 brown's office. will have front office make appt. patient has carotid doppler annually. ICD-9 : 780.4 ICD-10 : R42 09/27/2017 Appointment: Jennifer Rosario [address] [place] [address] ACUTE ILLNESS 09/27/2017 Patient Education: Patient Medication Summary Completed 09/27/2017 Visit Diagnosis Plan: Cervicalgia Discussion: Complete course of PT since symptoms improved Continue stretching exercises Notify if symptoms return or worsen ICD-9 : 723.1 ICD-10 : M54.2 08/16/2017 Appointment: Vikki Guaman WPtel: [facility] [address] FOLLOW UP 08/16/2017 Patient Education: Patient [...] E16.2 07/07/2017 Appointment: Vikki Guaman WPtel: [phone] [facility] 07/07/2017 Patient Education: Patient Medication Summary Completed 07/07/2017 Care Plan: MRI NECK SPINE W/O DYE [facility] : 35875-8 Pending 07/07/2017 Visit Diagnosis Plan: Benign paroxysmal [...] ICD-10 : H92.03 05/30/2017 Appointment: Jennifer Rosario [address] [place] [address] ACUTE ILLNESS 05/30/2017 Patient Education: Patient Medication [...] : R10.32 04/18/2017 Appointment: Vikki Guaman WPtel: [address] [place] [address] ACUTE ILLNESS 04/18/2017 Patient Education: Patient Medication Summary Completed 04/18/2017 Appointment: Vikki Guaman WPtel: [address] [place] [address] US INJECTION 12/10/2016 Patient Education: Patient Medication Summary Completed 12/10/2016 Appointment: Vikki Guaman WPtel: [address] [place], [place] [phone] [place] LAB 11/01/2016 Patient Education: Patient Medication [...] : M54.6 10/25/2016 Appointment: Vikki Guaman WPtel: [address] [place], [place] [phone] FOLLOW UP 10/25/2016 Patient Education: Patient Medication [...] : M54.5 09/20/2016 Appointment: Vikki Guaman WPtel: [address] [place], [place] [phone] ACUTE ILLNESS 09/20/2016 Patient Education: Patient Medication Summary Completed 09/20/2016 Appointment: Vikki Guaman WPtel: [address] [place], [place] [phone] [place] LAB 05/13/2016 Patient Education: Patient Medication [...] ICD-10 : R53.83 05/12/2016 Appointment: Vikki Guamantel: [address] [place] [address] 3/ confirmed `sl ACUTE ILLNESS 05/12/2016 Patient Education: Patient Medication Summary Completed 05/12/2016 Care Plan: MAMMOGRAM SCREENING LOINC : 2 6347-5 Pending 05/12/2016 Visit Diagnosis Plan: Acute upper respiratory infectio n, unspecified Discussion: Exam is reassuring Likely viral illness Supportive care reviewed and encouraged Follow up PRN ICD-9 : 465.9 ICD-10 : J06.9 03/18/2016 Appointment: Yue Moya [address] [place] [address] ACUTE ILLNESS 03/18/2016 Patient Education: Patient Medication Summary Completed 03/18/2016 Visit Plan: Supportive care. Rest, Fluid s, Tylenol/Motrin prn fever or bodyaches. Notify if worsening symptoms. 02/06/2016 Appointment: Vikki Guamantel: [address] [place] [address] ACUTE ILLNESS 02/06/2016 Patient Education: Patient Medication Summary Completed 02/06/2016 Appointment: Vikki Guaman WPtel: [address] [place] [address] US INJECTION 12/12/2015 Patient Education: Patient Medication Summary Completed 12/12/2015 Appointment: Vikki Guaman WPtel: [address] [place] [address] LAB 11/25/2015 Patient Education: Patient Medication Summary Completed 11/25/2015 Visit Plan: Add miralax daily Use daily probiotic and metamucil and push fluids Notify if worsens/persists 08/26/2015 Appointment: Vikki Guaman WPtel: [phone] [facility] 08/25/15 confirmed ~sl ACUTE ILLNESS 08/26/2015 Patient Education: Patient Medication Summary Completed 08/26/2015 Visit Plan: No NSAIDs Kidney function di scussed Discussed hydration Monitor lab every 4months so will check CMP, HbA1C next month 05/21/2015 Appointment: Vikki Guaman WPtel: [address] [place] [address] 05/19 confirmed ~sl ACUTE ILLNESS 05/21/2015 Patient Education: Patient Medication Summary Completed 05/21/2015 Visit Plan: Vestibular exercises Refill flonase Strict low Na diet--discussed that needs to read labels Rx for walker with chair given due to muscle weakness/unsteadiness Has carotids and abdominal aorta and legs checked in March Check Chem 7 02/19/2015 Appointment: Vikki Guaman WPtel: [address] [place] [address] 02/18/15 appt confirmed cn FOLLOW UP 02/19 Patient Education: Patient Medication Summary Completed 02/19/2015 Patient Education: Vertigo Completed 1 04/22/2014 Appointment: Vikki Guaman WPtel: [address] [place], [place] [phone] US INJECTION 12/20/2014 Patient Education: Patient Medication Summary Completed 12/20/2014 Appointment: Vikki Guaman WPtel: [address] [place], [place] [phone] US UA 11/19/2014 Patient Education: Patient Medication Summary Completed 11/19/2014 Referral: Edy Cheek WPtel: #[address] [facility] Katerina [id number] US Referral Completed 11/18/2014 Appointment: Vikki Guaman WPtel: [address] [place], [place] [phone] US LAB 11/14/2014 Patient Education: Patient Medication Summary Completed 11/14/2014 Visit Plan: Check CMP, CBC, TSH, Free T4 , B12, Lipids, HbA1C Discussed 6 small meals a day each with protein Would likely benefit from antidepressant Update colonoscopy 11/13/2014 Appointment: Vikki Guaman WPtel: [address] [place], [place] [phone] 11/12/14 confirmed ACUTE ILLNESS 11/13/2014 Patient Education: Patient Medication Summary Completed 11/13/2014 Visit Plan: Cerumen flush with warm wate r and peroxide - good results Resume Nasonex nasal spray daily Recommended Debrox earwax removal drops 09/27/2014 Appointment: Jessenia Francis WPtel: [address] [place] [address] ACUTE ILLNESS 09/27/2014 Patient Education: Patient Medication Summary Completed 09/27/2014 Visit Plan: Continue aspirin daily Add m eloxicam for 1week [employer] Call on Tuesday07/11/2014 Appointment: Vikki Guaman WPtel: [address] [place] [address] ACUTE ILLNESS 07/11/2014 Patient Education: Patient Medication Summary Completed 07/11/2014 Visit Plan: Been using baclofen at [facility] and has helped some PT for next 2-4weeks 05/23/2014 Appointment: Vikki Guaman WPtel: [address] [place], [place] [address] 05/23/2014 Patient Education: Patient Medication Summary Completed 05/23/2014 Appointment: Vikki Guaman WPtel: [address] [place], [place] [phone] LAB 05/10/2014 Appointment: Vikki Guaman WPtel: [address] [place] [address] feeling better, weather - FOLLOW UP 04/07 Referral: Edy Cheek WPtel: [facility]1 [facility] Ref[facility] App[facility]ment Requested 04/03/2014 Visit Plan: Continue exercise and curren t meds See surgery for removal of right arm lesion 03/20/2014 Appointment: Vikki Guaman WPtel: [address] [place] [address] FOLLOW UP 03/20/2014 Patient Education: Patient Medication Summary Completed 03/20/2014 Appointment: Vikki Guaman WPtel: [address] [place], [place] [phone] US INJECTION 12/21/2013 Patient Education: Patient Medication Summary Completed 12/21/2013 Appointment: Jessenia Francis WPtel: [address] [place] [address] ACUTE ILLNESS 10/17/2013 Patient Education: Patient Medication Summary Completed 10/17/2013 Visit Plan: Discussed that likely lumbar etiology for leg weakness Will change amlodopine to low dose dyazide and see if helps legs and inner ear 09/24/2013 Appointment: Vikki Guaman WPtel: [address] [place] [address] FOLLOW UP 09/24/2013 Patient Education: Patient Medication Summary Completed 09/24/2013 Visit Plan: Ceftin and continue claritin /flonase Decrease amlodopine to 2.5mg q HS until fwup with Card due to weakness 05/31/2013 Appointment: Vikki Guaman WPtel: [address] [place] [address] ACUTE ILLNESS 05/31/2013 Patient Education: Patient Medication Summary Completed 05/31/2013 Appointment: Vikki Guaman WPtel: [address] [place], [place] [phone] LAB 03/28/2013 Patient Education: Patient Medication Summary Completed 03/28/2013 Appointment: Jessenia Francis WPtel: [address] [place], [place] [phone] ACUTE ILLNESS 03/26/2013 Patient Education: Patient Medication Summary Completed 03/26/2013 Visit Plan: Supportive care. Rest, Fluid s, Tylenol prn fever or bodyaches. Notify if worsening symptoms. Ceftin 12/19/2012 Appointment: Jessenia Francis WPtel: [address] [place] [address] ACUTE ILLNESS 12/19/2012 Patient Education: Patient Medication Summary Completed 12/19/2012 Appointment: Vikki Guaman WPtel: [address] [place] [address] BP CHECK 12/04/2012 Patient Education: Patient Medication Summary Completed 12/04/2012 Appointment: Vikki Guaman WPtel: [address] [place] [address] ER Follow UP 11/27/2012 Patient Education: Patient Medication Summary Completed 11/27/2012 Visit Plan: Restart flonase BID Use mecl izine 25mg q HS Vestibular exercises Claritin 10mg q AM See ENT if doesn't resolve 10/04/2012 Appointment: Vikki Guaman WPtel: [address] [place] [address] ACUTE ILLNESS 10/04/2012 Patient Education: Patient Medication Summary Completed 10/04/2012 Visit Plan: Will continue to observe 07/27/2012 Appointment: Vikki Guaman WPtel: [address] [place] [address] FOLLOW UP 07/27/2012 Patient Education: Patient Medication [...] ear recheck. 07/14/2012 Appointment: Evelyn Santos WPtel: [address] [place] [address] ACUTE ILLNESS 07/14/2012 Patient Education: Patient Medication Summary Completed 07/14/2012 Visit Plan: Decrease caffeine intake Kristin ck Bilateral Mammogram with US of left breast 06/08/2012 Appointment: Vikki Guaman WPtel: [address] [place] [address] ACUTE ILLNESS 06/08/2012 Patient Education: Patient Medication Summary Completed 06/08/2012 Appointment: Alisia Campbell WPtel: [address] [place] [address] appt scheduled 04/06 ACUTE ILLNESS 04/10/2012 Appointment: Vikki Gumaan WPtel: [address] [place], [place] [phone] 02/23/2012 Patient Education: Patient Medication Summary Completed 02/23/2012 Visit Plan: Continue off carafate and se e how does Continue probiotic Add Vestibular exercises and use meclizine prn Continue Nasonex Check fasting lab including CMP, Lipids, CBC, TSH, Free T4, HbA1C 02/22/2012 Appointment: Vikki Guaman WPtel: [address] [place] [address] FOLLOW UP 02/22/2012 Patient Education: Patient Medication Summary Completed 02/22/2012 Visit Plan: Continue carafate for 4more weeks at current dose then decrease to BID for 2wks then q HS 12/28/2011 Appointment: Vikki Guaman WPtel: [address] [place], [place] [id number] FOLLOW UP 12/28/2011 Patient Education: Patient Medication Summary Completed 12/28/2011 Visit Plan: Continue omeprazole Add Judi fate 1gm po q AC Add daily probiotic 12/15/2011 Appointment: Vikki Guaman WPtel: [address] [place] [address] ACUTE ILLNESS 12/15/2011 Patient Education: Patient Medication Summary Completed 12/15/2011 Appointment: Vikki Guaman WPtel: [address] [place], [place] [phone] [place] INJECTION 12/02/2011 Patient Education: Patient Medication Summary Completed 12/02/2011 Visit Plan: Diabetic Diet Accuchecks BID alternating times Hold onglyza and Januvia for now and continue diet and exercise and weight loss and lana BAPTISTE Discussed hypoglycemia and snack of peanut butter and crackers with juice or milk 09/21/2011 Appointment: Vikki Guamantel: [address] [place] [address] WORK IN 09/21/2011 Patient Education: Patient Medication Summary Completed 09/21/2011 Appointment: Vikki Guaman WPtel: [address] [place] [address] 09/16/2011 Patient Education: Patient Medication Summary Completed 09/16/2011 Appointment: Vikki Guaman WPtel: [address] [place] [address] LAB 09/15/2011 Patient Education: Patient Medication Summary Completed 09/15/2011 Appointment: Vikki Guaman WPtel: [address] [place] [address] ACUTE ILLNESS 09/13/2011 Patient Education: Patient Medication Summary Completed 09/13/2011 Visit Plan: Injection to Right SI joint as above Pt will call in 3 days on pain Has PT starting in 2wks. 08/16/2011 Appointment: Vikki Guaman WPtel: [address] [place] [address] ACUTE ILLNESS 08/16/2011 Patient Education: Patient Medication Summary Completed 08/16/2011 Visit Plan: OMT done Start PT May need u pdated MRI if need to consider epidural Prednisone 08/03/2011 Appointment: Vikki Guaman WPtel: [address] [place] [address] OMT 08/03/2011 Patient Education: Patient Medication Summary Completed 08/03/2011 Visit Plan: Flexeril and Vimovo OMT done Daily stretches 07/26/2011 Appointment: Vikki Guaman WPtel: [address] [place], [place] [phone] ACUTE ILLNESS 07/26/2011 Patient Education: Patient Medication Summary Completed 07/26/2011 Visit Plan: OMT done Daily stretches Roque st heat or biofreeze Right SI joint injection Call in 1week Vimovo BID 06/28/2011 Appointment: Vikki Guaman WPtel: [address] [place], [place] [phone] 06/28/2011 Patient Education: Patient Medication Summary Completed 06/28/2011 Appointment: Vikki Guaman WPtel: [address] [place], [place] [phone] [place] LAB 04/01/2011 Patient Education: Patient Medication Summary Completed 04/01/2011 Visit Plan: Decrease amlodopine to 1.25m g daily Schedule with Cardiology Fasting lab in AM 03/31/2011 Appointment: Vikki Guaman WPtel: [address] [place] [address] ACUTE ILLNESS 03/31/2011 Patient Education: Patient Medication Summary Completed 03/31/2011 Visit Plan: Saline nasal flushes prn. Ty lenol/Motrin prn headache. Notify if persists/symptoms worsening. Cerumen removal from ears as above 02/11/2011 Appointment: Vikki Guaman WPtel: [address] [place], [place] [phone] ACUTE ILLNESS 02/11/2011 Patient Education: Patient Medication Summary Completed 02/11/2011 Appointment: Vikki Guaman WPtel: [address] [place], [place] [phone] [place] INJECTION 12/09/2010 Patient Education: Patient Medication Summary Completed 12/09/2010 Visit Plan: Continue vimovo for 1more we ek Increase Omeprazole to BID for 1mo then resume QD if stomach improved Vestibular exercises with meclizine q HS for next week 10/15/2010 Appointment: Vikki Guaman WPtel: [address] [place] [address] FOLLOW UP 10/15/2010 Patient Education: Patient Medication Summary Completed 10/15/2010 Appointment: Vikki Guaman WPtel: [address] [place] [address] ACUTE ILLNESS 09/29/2010 Patient Education: Patient Medication Summary Completed 09/29/2010 Appointment: Vikki Guaman WPtel: [address] [place] [address] LAB 07/06/2010 Patient Education: Patient Medication Summary Completed 07/06/2010 Visit Plan: Saline nasal flushes prn. Ty lenol/Motrin prn headache. Notify if persists/symptoms worsening. Add Veramyst Increase Omeprazole to 20mg po BID 07/02/2010 Appointment: Vikki Guaman WPtel: [address] [place] [address] ACUTE ILLNESS 07/02/2010 Patient Education: Patient Medication Summary Completed 07/02/2010 Appointment: Vikki Guaman WPtel: [address] [place] [address] FOLLOW UP 04/06/2010 Patient Education: Patient Medication Summary Completed 04/06/2010 Appointment: Vikki Guaman WPtel: [address] [place] [address] ACUTE ILLNESS 04/01/2010 Patient Education: Patient Medication Summary Completed 04/01/2010 Visit Plan: Nasocourt sample given. Pt. will notify if symptoms are worse on Tuesday. 01/22/2010 Appointment: Alisia Campbell WPtel: [address] [place] [address] ACUTE ILLNESS 01/22/2010 Patient Education: Patient Medication Summary Completed 01/22/2010 Appointment: Vikki Guaman WPtel: [address] [place], [place] [phone] [place] INJECTION 12/10/2009 Patient Education: Patient Medication Summary Completed 12/10/2009 Appointment: Vikki Guaman WPtel: [address] [place] [address] FOLLOW UP 12/02/2009 Patient Education: Patient Medication Summary Completed 12/02/2009 Patient Education: Lexapro Completed 0 12/02/2009 Visit Plan: May proceed with hiatal ryan ia repair per Card. so will contact Dr. Mariscal's office to proceed with surgery Trial of Lexapro 5mg QD plus use xanax prn 10/21/2009 Appointment: Vikki Guaman WPtel: [address] [place] [address] FOLLOW UP 10/21/2009 Patient Education: Patient Medication Summary Completed 10/21/2009 Visit Plan: B12 given Cont oral B12 and iron Fwup 1mo for B12 Proceed with hiatal hernia repair once card clearance 09/10/2009 Appointment: Vikki Guaman WPtel: [address] [place] [address] FOLLOW UP 09/10/2009 Patient Education: Patient Medication Summary Completed 09/10/2009 Appointment: Vikki Guaman WPtel: [address] [place] [address] FOLLOW UP 08/11/2009 Patient Education: Patient Medication Summary Completed 08/11/2009 Appointment: Vikki Guaman WPtel: [address] [place] [address] [place] LAB 06/10/2009 Patient Education: Patient Medication Summary Completed 06/10/2009 Visit Plan: Check fasting lab in AM--CMP ,Lipids, CBC, Vit D, TSH,FreeT4, B12 06/09/2009 Appointment: Vikki Guaman WPtel: [address] [place] [address] [place] FOLLOW UP 06/09/2009 Patient Education: Patient Medication Summary Completed 06/09/2009 Referral: Edy hCeek WPtel: [address] [place] [phone] [place] Referral Appointment Requested Referral: Edy Cheek WPtel: [facility] [id number] [place] Referral Initiated Instructions Comment . Supportive [...]
--- OUTSIDE RECORDS SUMMARY | 2019-04-25 20:28 | XMS REPORT | CCD ---
Author Author Evelyne Guaman D.O. Organization [facility] Address [address] [place] [address] Phone Care Team Providers Care Focus Puller Name Role Phone Vikki Guaman D.O. PP Unavailable CCM Unavailable Summary Purpose Interface Exchange Insurance Providers Payer name Policy type / Coverage type Covered alliance party ID Effective Begin Date Effective End Date WPS MEDICARE PART B [place] Medicare Part B [id number] 2017 Unknown Aetna [facility] Medicare Part B [id number] Unknown Family history Father Diagnosis Age At Onset Heart disease Unknown Mother Diagnosis Age At Onset Heart disease Unknown Cancer Unknown Social History Social History Element Codes Description Effective Dates Tobacco history SNOMED CT: 163771047 Never smoker 09/29/2010 Marital status Unknown Single [...] R10.13 11/22/2017 Active 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: [...] Instructions metoprolol tartrate 25 mg tablet RxNorm: 346588 1 Table t(s) Oral QAM and two tablets (50mg) in the evening 03/20/2019 06/18/2019 Active Flonase Allergy Relief 50 mcg/actuation nasal spray,suspensi on RxNorm: 1596363 2 Smiley Nasal every night at bedtime 03/13/2019 03/13/2019 Inactive simvastatin 40 mg tablet RxNorm: 887765 1 Tablet(s) PO QD 01/22/2019 04/21/2019 Active omeprazole 40 mg capsule,delayed release RxNorm: 393786 1 Capsu le(s) Oral QD 01/10/2019 07/08/2019 Active Xanax 0.25 mg tablet RxNorm: 093454 TAKE 1 TABLET BY MOUTH TWIC E DAILY 01/02/2019 No Stop Date Active omeprazole 40 mg capsule,delayed release RxNorm: 516313 1 Capsu le(s) PO QD 12/11/2018 01/09/2019 Inactive metoprolol tartrate 25 mg tablet RxNorm: 369375 1 Tablet(s) PO BID 11/20/2018 03/19/2019 Inactive omeprazole 40 mg capsule,delayed release RxNorm: 354525 1 Capsu le(s) PO QD 11/13/2018 12/10/2018 Inactive Flonase Allergy Relief 50 mcg/actuation nasal spray,suspensi on RxNorm: 4566109 2 Smiley NASAL QHS 11/07/2018 03/12/2019 Inactive simvastatin 40 mg tablet RxNorm: 099633 1 Tablet(s) PO QD 10/23/2018 01/20/2019 Inactive simvastatin 40 mg tablet RxNorm: 076544 1 Tablet(s) PO QD 07/24/2018 10/21/2018 Inactive omeprazole 40 mg capsule,delayed release RxNorm: 336326 1 Capsu le(s) PO QD 07/13/2018 11/09/2018 Inactive simvastatin 40 mg tablet RxNorm: 375028 1 Tablet(s) PO QD 06/13/2018 07/12/2018 Inactive omeprazole 40 mg capsule,delayed release RxNorm: 795934 1 Capsu le(s) PO QD 06/13/2018 07/12/2018 Inactive Bactrim DS 800 mg-160 mg tablet RxNorm: 958397 1 Tablet(s) PO BID 0 05/12/2018 05/18/2018 Inactive Bactrim DS 800 mg-160 mg tablet RxNorm: 253477 1 Tablet(s) PO BID 0 05/12/2018 05/11/2018 Inactive Macrobid 100 mg capsule RxNorm: 119516 1 Capsule(s) PO BID 05/11/1905/16/2018 Inactive metoprolol tartrate 25 mg tablet RxNorm: 705400 1 Tablet(s) PO BID 05/10/2018 11/05/2018 Inactive Xanax 0.25 mg tablet RxNorm: 556204 TAKE 1 TABLET BY MOUTH TWIC E DAILY 02/16/2018 01/01/2019 Inactive Xanax 0.25 mg tablet RxNorm: 030569 1 Tablet(s) PO BID 02/14/2018 Inactive Protonix 40 mg tablet,delayed release RxNorm: 997718 1 Tablet(s) PO BID for stomach--replaces omeprazole 01/10/2018 05/09/2018 Inactive Carafate 1 gram tablet RxNorm: 979839 1 Tablet(s) PO AC & HS 201705/09/2018 Inactive Xanax 0.25 mg tablet RxNorm: 773655 1 Tablet(s) PO BID 01/03/201812/2017 Inactive Bactrim DS 800 mg-160 mg tablet RxNorm: 889560 1 Tablet(s) PO BID 1 12/12/2017 Inactive Bactrim DS 800 mg-160 mg tablet RxNorm: 476955 1 Tablet(s) PO BID 1 12/07/2017 Inactive Carafate 1 gram tablet RxNorm: 901367 1 Tablet(s) PO AC & HS 201712/21/2017 Inactive Protonix 40 mg tablet,delayed release RxNorm: 492836 1 Tablet(s) PO BID for stomach--replaces omeprazole 11/22/2017 01/09/2018 Inactive Protonix 40 mg tablet,delayed release RxNorm: 912551 1 Tablet(s) PO BID for stomach--replaces omeprazole 10/20/2017 11/21/2017 Inactive fluticasone 50 mcg/actuation nasal spray,suspension RxNorm: 5275233 2 Smiley NASAL QD to each nostril 07/07/2017 08/13/2018 Inactive Nasonex 50 mcg/actuation Smiley RxNorm: 4277123 2 Smiley NASAL 201707/07/2017 Inactive omeprazole 40 mg capsule,delayed release RxNorm: 790320 1 Capsu le(s) PO QD 04/18/2017 10/19/2017 Inactive simvastatin 40 mg tablet RxNorm: 569845 1 Tablet(s) PO QD TAKE 1 TABLET EVERY DAY 04/18/2017 04/12/2018 Inactive metoprolol tartrate 25 mg tablet RxNorm: 917412 1/2 Tablet(s) PO QD 04/18/2017 01/09/2018 Inactive simvastatin 40 mg tablet RxNorm: 595480 Tablet(s) TAKE 1 TABLET EVERY DAY 10/27/2016 04/17/2017 Inactive metoprolol tartrate 25 mg tablet RxNorm: 396491 1/2 Tablet(s) PO QD 09/20/2016 03/18/2017 Inactive Flonase 50 mcg/actuation nasal spray,suspension RxNorm: 1797 933 2 Smiley NASAL BID 09/20/2016 04/17/2017 Inactive omeprazole 40 mg capsule,delayed release RxNorm: 589913 1 Capsu le(s) PO QD 09/08/2016 04/17/2017 Inactive metoprolol tartrate 25 mg tablet RxNorm: 519642 1/2 Tablet(s) PO QD 06/14/2016 09/19/2016 Inactive ciprofloxacin 0.2 % ear drops in a dropperette RxNorm: 24377 6 4 Drop(s) OTIC TID for 1 week 02/06/2016 05/11/2016 Inactive cefdinir 300 mg capsule RxNorm: 518204 2 Capsule(s) PO QD 02/06/2016 02/15/2016 Inactive omeprazole 40 mg capsule,delayed release RxNorm: 817630 TAKE 1 CAPSULE EVERY DAY 11/06/2015 09/08/2016 Inactive simvastatin 40 mg tablet RxNorm: 180973 TAKE 1 TABLET EVERY DAY 05/201510/27/2016 Inactive Flonase 50 mcg/actuation nasal spray,suspension RxNorm: 1797 933 2 Smiley NASAL BID 02/19/2015 09/19/2016 Inactive cefuroxime axetil 250 mg tablet RxNorm: 687295 1 Tablet(s) PO BID 0 11/21/2014 11/20/2014 Inactive cefuroxime axetil 250 mg tablet RxNorm: 182041 1 Tablet(s) PO BID 0 11/21/2014 11/27/2014 Inactive omeprazole 40 mg capsule,delayed release RxNorm: 870800 1 Capsu le(s) PO QD 10/09/2014 01/05/2015 Inactive meloxicam 7.5 mg tablet RxNorm: 949437 1 Tablet(s) PO QD 07/11/2014 0 08/09/2014 Inactive loratadine 10 mg tablet RxNorm: 021098 1 Tablet(s) PO QAM for a llergies 10/17/2013 08/13/2018 Inactive Flonase 50 mcg/actuation nasal spray,suspension RxNorm: 8963 23 2 Smiley NASAL BID 10/17/2013 02/18/2015 Inactive prednisone 20 mg tablet RxNorm: 865799 2 Tablet(s) PO BID 10/17/2013 10/21/2013 Inactive Dyazide 37.5 mg-25 mg capsule RxNorm: 664813 1 Capsule(s) PO QAM 10/16/2013 Inactive Ceftin 500 mg tablet RxNorm: 336836 1 Tablet(s) PO BID 05/31/201307/2013 Inactive Ceftin 500 mg tablet RxNorm: 417377 1 Tablet(s) PO BID 03/26/2013 Inactive simvastatin 40 mg tablet RxNorm: 964503 Tablet(s) PO TA KE ONE TABLET BY MOUTH EVERY DAY 03/26/2013 10/07/2015 Inactive metoprolol tartrate 25 mg tablet RxNorm: 349750 Tablet( s) PO TAKE ONE-HALF TABLET BY MOUTH EVERY DAY 03/26/2013 11/12/2014 Inactive Ceftin 500 mg tablet RxNorm: 890461 1 Tablet(s) PO BID 12/19/2012 Inactive loratadine 10 mg tablet RxNorm: 142127 1 Tablet(s) PO QAM for a llergies 10/04/2012 12/02/2012 Inactive omeprazole 20 mg capsule,delayed release RxNorm: 347304 Capsule(s) PO TAKE ONE CAPSULE BY MOUTH TWICE DAILY 08/09/2012 10/08/2014 Inactive omeprazole 20 mg capsule,delayed release RxNorm: 238480 1 Capsu le(s) PO BID 08/09/2012 05/09/2018 Inactive Augmentin 875 mg-125 mg tablet RxNorm: 815434 1 Tablet(s) PO Q12H 0 07/14/2012 07/23/2012 Inactive Floxin Otic Drops 1 bottle Drops RxNorm: 5 Drop(s) OTIC BID 07/20/2012 Inactive metoprolol tartrate 25 mg tablet RxNorm: 629079 Tablet( s) PO TAKE ONE-HALF TABLET BY MOUTH EVERY DAY 04/11/2012 03/25/2013 Inactive simvastatin 40 mg tablet RxNorm: 982350 Tablet(s) PO TA KE ONE TABLET BY MOUTH EVERY DAY 04/11/2012 03/25/2013 Inactive lancets RxNorm: Misc Miscellaneous USE ONE TO CH JEFFERY GLUCOSE EVERY DAY 04/04/2012 05/09/2018 Inactive Carafate 1 gram tablet RxNorm: 357491 1 Tablet(s) PO AC & HS 201111/12/2014 Inactive Flagyl 500 mg tablet RxNorm: 502868 1 Tablet(s) PO TID 12/15/2011 Inactive Carafate 1 gram tablet RxNorm: 830146 1 Tablet(s) PO AC & HS 201102/12/2012 Inactive One Touch Test strips RxNorm: Miscellaneous QD 09/21/2011 05/09/2018 Inactive one touch ultra mini test strips Protonix 40 mg Tab RxNorm: 090342 1 Tablet(s) PO QD 09/13/20112011 Inactive Protonix 40 mg Tab RxNorm: 522383 1 Tablet(s) PO QD 09/13/20112011 Inactive prednisone 20 mg Tab RxNorm: 695481 1 Tablet(s) PO BID 08/03/201106/2011 Inactive Flexeril 5 mg Tab RxNorm: 955158 1 Tablet(s) PO QHS for spasm 07/2508/24/2011 Inactive Flexeril 5 mg Tab RxNorm: 254985 1 Tablet(s) PO QHS for spasm 06/2707/25/2011 Inactive amlodipine 2.5 mg Tab RxNorm: 085269 1/2 Tablet(s) PO QD replac es 5mg dose 03/31/2011 06/27/2011 Inactive simvastatin 40 mg tablet RxNorm: 697788 1 Tablet(s) PO QD 03/31/2011 03/24/2012 Inactive metoprolol tartrate 25 mg tablet RxNorm: 187852 1/2 Tablet(s) PO QD 03/31/2011 03/24/2012 Inactive omeprazole 20 mg capsule,delayed release RxNorm: 767704 1 Capsu le(s) PO BID 03/31/2011 09/12/2011 Inactive cefdinir 300 mg Cap RxNorm: 275502 2 Capsule(s) PO QD 02/11/201102/04 Inactive simvastatin 40 mg Tab RxNorm: 216678 1 Tablet(s) PO QD 02/01/2011 Inactive metoprolol tartrate 25 mg Tab RxNorm: 322127 1/2 Tablet(s) PO QD 03/30/2011 Inactive metoprolol tartrate 25 mg Tab RxNorm: 426547 1/2 Tablet(s) PO QD 12/28/2010 Inactive meclizine 25 mg Tab RxNorm: 2338201 1 Tablet(s) PO QHS 10/15/201011/2010 Inactive for dizziness Ceftin 500 mg Tab RxNorm: 261545 1 Tablet(s) PO BID 07/02/20102010 Inactive omeprazole 20 mg Cap, Delayed Release RxNorm: 331013 1 Capsule( s) PO BID 07/02/2010 12/28/2010 Inactive simvastatin 40 mg Tab RxNorm: 789917 1 Tablet(s) PO QD 06/30/201007/2018 Inactive simvastatin 40 mg Tab RxNorm: 208681 1 Tablet(s) PO QD 06/30/2010 Inactive simvastatin 40 mg Tab RxNorm: 558055 1 Tablet(s) PO QD 02/25/2010 Inactive Tessalon Perles 100 mg Cap RxNorm: 634077 1 Capsule(s) PO Q6-8H 01/28/2010 Inactive cefdinir 300 mg Cap RxNorm: 649544 1 Capsule(s) PO BID 01/22/2010 Inactive Lexapro 10 mg Tab RxNorm: 860691 1 Tablet(s) PO QD 12/02/2009 010 Inactive Cipro 250 mg Tab RxNorm: 386476 1 Tablet(s) PO BID 12/02/2009 010 Inactive Wellbutrin XL 150 mg 24 hr Tab RxNorm: 486783 1 Tablet(s) PO QAM 08/07/2009 Inactive Fish Oil 1,000 mg Cap RxNorm: 1 Capsule(s) PO QD No Start Date Active Tylenol Extra Strength 500 mg tablet RxNorm: 809785 1/2 Tablet( s) PO as needed No Start Date Active nitroglycerin 0.4 mg sublingual tablet RxNorm: 460742 Tablet(s) SL as needed No Start Date Active Calcium with Vitamin D 600 mg (1,500 mg)-400 unit tablet RxN orm: 902860 1 Tablet(s) PO QD No Start Date Active Multivitamin & Mineral Formula Tab RxNorm: 1 Tablet(s) PO QD No St art Date Active vitamin B complex capsule RxNorm: 1 Capsule(s) PO QD No Start Date Active Aspirin 81 mg Tab RxNorm: 001011 1 Tablet(s) PO QD No Start Date Active isosorbide mononitrate ER 30 mg tablet,extended release 24 h r RxNorm: 975695 1 Tablet(s) PO QHS No Start Date Active Vitamin D 1,000 unit Cap RxNorm: 379005 1 Capsule(s) PO QD No Start D ate Active Co Q-10 oral RxNorm: 90588 oral No Start Date Active metoprolol tartrate 25 mg Tab RxNorm: 997121 1/2 Tablet(s) PO QD No Start Date 12/27/2010 Inactive Nasonex 50 mcg/actuation Smiley RxNorm: 0297087 2 Smiley NASAL No Sta rt Date 07/06/2017 Inactive Vitamin B12 1000mcg Tablet RxNorm: 1 Tablet(s) PO QD No Start Date 11/12/2014 Inactive amlodipine 5 mg Tab RxNorm: 886162 1 Tablet(s) PO QD No Start Date Inactive simvastatin 40 mg tablet RxNorm: 731485 1 Tablet(s) PO QD No Start Date 06/12/2018 Inactive omeprazole 20 mg capsule,delayed release RxNorm: 725114 1 Capsu le(s) PO BID No Start Date 08/08/2012 Inactive omeprazole 40 mg capsule,delayed release RxNorm: 181248 1 Capsu le(s) PO QD No Start Date 06/12/2018 Inactive Nexium 40 mg Cap RxNorm: 652642 1 Capsule(s) PO QD No Start Date 01/05 Inactive Stool Softener 100 mg Tab RxNorm: 7422555 2 Tablet(s) PO BID No Sta rt Date 03/30/2011 Inactive Calcium with Vitamin D 600 mg (1,500 mg)-400 unit Tab RxNorm : 963633 1 Tablet(s) PO QD No Start Date 11/12/2014 Inactive iron 325 mg (65 mg iron) Tab RxNorm: 275177 1 Tablet(s) PO QD No St art Date 11/12/2014 Inactive Flonase 50 mcg/actuation Nasal Smiley RxNorm: 124299 2 Smiley DEMOND AL BID No Start Date 10/16/2013 Inactive fluticasone 50 mcg/actuation nasal spray,suspension RxNorm: 3543709 2 Smiley NASAL QD to each nostril No Start Date 07/06/2017 Inactive Nasonex 50 mcg/actuation Smiley RxNorm: 4927149 2 Smiley NASAL QD No Start Date 07/06/2017 Inactive hydralazine 50 mg tablet RxNorm: 277994 1 Tablet(s) PO as needed for BP over 160/90 No Start Date 11/21/2017 Inactive Vimovo 500 mg-20 mg 12 hr Tab RxNorm: 510789 1 Tablet(s) PO BID No Start Date 02/10/2011 Inactive Tylenol PM 25 mg-500 mg/15 mL Oral Soln RxNorm: 4502307 1 PO QPM No Start Date 11/12/2014 Inactive Iron (Ferrous Sulfate) Oral RxNorm: Oral No Start Date 03/30/19 12 Inactive Reglan 10 mg Tab RxNorm: 392900 1 Tablet(s) PO TID before meals No Start Date 02/10/2011 Inactive Xanax 1 mg Tab RxNorm: 071945 1/2 Tablet(s) PO QD No Start Date 11/21 Inactive amlodipine 10 mg tablet RxNorm: 515416 1 Tablet(s) PO QD No Start D ate 09/23/2013 Inactive Iron (dried) Oral RxNorm: Oral No Start Date 03/30/2011 Inactiv e metoprolol tartrate 50 mg tablet RxNorm: 104747 1 Tablet(s) PO BID No Start Date 02/13/2018 Inactive Xanax 0.25 mg tablet RxNorm: 826037 1 Tablet(s) PO BID No Start Date 01/02/2018 Inactive lancets RxNorm: Miscellaneous check blood sugar at least once daily No Start Date 04/03/2012 Inactive simvastatin 40 mg Tab RxNorm: 062934 1 Tablet(s) PO QD No Start Date 02/24/2010 Inactive isosorbide mononitrate ER 30 mg tablet,extended release 24 h r RxNorm: 166103 1 Tablet(s) PO QHS No Start Date 08/13/2018 Inactive amlodipine 2.5 mg tablet RxNorm: 435433 1 Tablet(s) PO QD No Start Date 09/23/2013 Inactive sucralfate 1 gram tablet RxNorm: 966233 1 Tablet(s) PO QID No Start Date 05/09/2018 Inactive Fish Oil Oral RxNorm: Oral No Start Date 03/31/2011 Inactive Multiple Vitamin Oral RxNorm: Oral No Start Date 03/31/2011 Franny ctive metoprolol tartrate 25 mg tablet RxNorm: 960192 1/2 Tablet(s) P O QD No Start Date 06/13/2016 Inactive metoprolol tartrate 50 mg tablet RxNorm: 140431 1/2 Tablet(s) P O BID No Start Date 05/09/2018 Inactive Flonase Allergy Relief 50 mcg/actuation nasal spray,suspensi on RxNorm: 7852647 2 Smiley NASAL QHS No Start Date 11/06/2018 Inactive [...] Code Item Item Code Result Date S [facility] Location COMPLETE BLOOD COUNT [id number] WBC 7.1 10e9/L 03/13/19 20 Unknown COMPLETE BLOOD COUNT [id number] RBC 4.16 10e12/L 2019 Unknown COMPLETE BLOOD COUNT [id number] HEMOGLOBIN 12.4 g/dL 03/13/19 20 Unknown COMPLETE BLOOD COUNT [id number] HEMATOCRIT 39.3 % 03/13/19 20 Unknown COMPLETE BLOOD COUNT [id number] MCV 94.5 fL 0 Unknown COMPLETE BLOOD COUNT [id number] MCH 29.8 pg 0 Unknown COMPLETE BLOOD COUNT [id number] MCHC 31.6 g/dL 0 Unknown COMPLETE BLOOD COUNT [id number] PLATELET COUNT 161 10e9/L 09/2019 Unknown COMPLETE BLOOD COUNT [id number] Mean Plt Volume 10.8 fL 09/2019 Unknown COMPLETE BLOOD COUNT [id number] Neut Auto 38.7 % 0 Unknown COMPLETE BLOOD COUNT [id number] Lymph Auto 48.0 % 03/13/19 20 Unknown COMPLETE BLOOD COUNT [id number] [place] Auto 9.5 % 0 Unknown COMPLETE BLOOD COUNT [id number] RDW 13.5 % 0 Unknown COMPLETE BLOOD COUNT [id number] Eos Auto 3.2 % 0 Unknown COMPLETE BLOOD COUNT [id number] Baso Auto 0.6 % 0 Unknown COMPLETE BLOOD COUNT [id number] Neutrophil Abs 2.75 10e9/L Unknown COMPLETE BLOOD COUNT [id number] Lymphocyte Abs 3.41 10e9/L Unknown COMPLETE BLOOD COUNT [id number] Monocyte Abs 0.67 10e9/L 09/2019 Unknown COMPLETE BLOOD COUNT [id number] Eosinophil Abs 0.23 10e9/L Unknown COMPLETE BLOOD COUNT [id number] RDW-SD 44.7 fL 0 Unknown COMPLETE BLOOD COUNT [id number] Basophil Abs 0.04 10e9/L 09/2019 Unknown THYROID STIMULATING HORMONE 65670 TSH 1.677 uIU/mL 03/13/2019 Unknown COMPREHENSIVE METABOLIC 34056 AST 19 U/L 2019 Unknown COMPREHENSIVE METABOLIC 68454 ALT 12 U/L 2019 Unknown COMPREHENSIVE METABOLIC 69927 BUN 17 mg/dL 2019 Unknown COMPREHENSIVE METABOLIC 35870 ALBUMIN 4.2 g/dL 2019 Unknown COMPREHENSIVE METABOLIC 18608 CHLORIDE 103 mmol/L 03/13 Unknown COMPREHENSIVE METABOLIC 72909 Bili Total 0.2 mg/dL 03/13 Unknown COMPREHENSIVE METABOLIC 13845 ALK PHOS 61 U/L 2019 Unknown COMPREHENSIVE METABOLIC 81956 SODIUM 140 mmol/L 03/13 Unknown COMPREHENSIVE METABOLIC 87799 CREATININE 0.95 mg/dL 09/2019 Unknown COMPREHENSIVE METABOLIC 84777 CALCIUM 9.4 mg/dL 2019 Unknown COMPREHENSIVE METABOLIC 75769 POTASSIUM 4.2 mmol/L 03/13 Unknown COMPREHENSIVE METABOLIC 69881 Total Protein 6.5 g/dL Unknown COMPREHENSIVE METABOLIC 16474 Glucose 103 mg/dL 2019 Unknown COMPREHENSIVE METABOLIC 31702 Bicarbonate 26 mmol/L 09/2019 Unknown COMPREHENSIVE METABOLIC 60247 AGAP 11 mmol/L 2019 Unknown GFR CALC [id number] GFR Non Afr Amr 57 mL/min 03/13/2019 Unk nown GFR CALC [id number] GFR Afr Amr >60 mL/min 03/13/2019 Unknow n GFR CALC [id number] GFR Non Afr Amr 52 mL/min 12/15/2018 Unk nown GFR CALC [id number] GFR Afr Amr >60 mL/min 12/15/2018 Unknow n COMPREHENSIVE METABOLIC 15109 AST 17 U/L 2018 Unknown COMPREHENSIVE METABOLIC 80549 ALT 11 U/L 2018 Unknown COMPREHENSIVE METABOLIC 36044 BUN 17 mg/dL 2018 Unknown COMPREHENSIVE METABOLIC 32507 ALBUMIN 3.9 g/dL 2018 Unknown COMPREHENSIVE METABOLIC 07085 CHLORIDE 108 mmol/L 12/15 Unknown COMPREHENSIVE METABOLIC 59860 Bili Total 0.5 mg/dL 12/15 Unknown COMPREHENSIVE METABOLIC 96995 ALK PHOS 72 U/L 2018 Unknown COMPREHENSIVE METABOLIC 66789 SODIUM 142 mmol/L 12/15 Unknown COMPREHENSIVE METABOLIC 87486 CREATININE 1.02 mg/dL 12/05 Unknown COMPREHENSIVE METABOLIC 18713 CALCIUM 9.3 mg/dL 2018 Unknown COMPREHENSIVE METABOLIC 02448 POTASSIUM 4.0 mmol/L 12/15 Unknown COMPREHENSIVE METABOLIC 83018 Total Protein 6.2 g/dL Unknown COMPREHENSIVE METABOLIC 92213 Glucose 93 mg/dL 2018 Unknown COMPREHENSIVE METABOLIC 52178 Bicarbonate 27 mmol/L 12/05 Unknown COMPREHENSIVE METABOLIC 47919 AGAP 7 mmol/L 2018 Unknown GFR CALC [id number] GFR Non Afr Amr 48 mL/min 08/14/2018 Unk nown GFR CALC [id number] GFR Afr Amr 59 mL/min 08/14/2018 Unknown THYROID STIMULATING HORMONE 41787 TSH 1.936 uIU/mL 08/14/2018 Unknown COMPREHENSIVE METABOLIC 66668 AST 18 U/L 2018 Unknown COMPREHENSIVE METABOLIC 67466 ALT 11 U/L 2018 Unknown COMPREHENSIVE METABOLIC 94559 BUN 18 mg/dL 2018 Unknown COMPREHENSIVE METABOLIC 57012 ALBUMIN 4.2 g/dL 2018 Unknown COMPREHENSIVE METABOLIC 08185 CHLORIDE 109 mmol/L 08/14 Unknown COMPREHENSIVE METABOLIC 84824 Bili Total 0.4 mg/dL 08/14 Unknown COMPREHENSIVE METABOLIC 08074 ALK PHOS 64 U/L 2018 Unknown COMPREHENSIVE METABOLIC 08337 SODIUM 142 mmol/L 08/14 Unknown COMPREHENSIVE METABOLIC 66384 CREATININE 1.09 mg/dL 08/05 Unknown COMPREHENSIVE METABOLIC 31395 CALCIUM 9.3 mg/dL 2018 Unknown COMPREHENSIVE METABOLIC 34046 POTASSIUM 4.7 mmol/L 08/14 Unknown COMPREHENSIVE METABOLIC 45746 Total Protein 6.3 g/dL Unknown COMPREHENSIVE METABOLIC 19219 Glucose 84 mg/dL 2018 Unknown COMPREHENSIVE METABOLIC 30913 Bicarbonate 25 mmol/L 08/05 Unknown COMPREHENSIVE METABOLIC 59187 AGAP 8 mmol/L 2018 Unknown COMPLETE BLOOD COUNT [id number] WBC 7.8 10e9/L 08/15/19 19 Unknown COMPLETE BLOOD COUNT [id number] RBC 4.04 10e12/L 2018 Unknown COMPLETE BLOOD COUNT [id number] HEMOGLOBIN 12.2 g/dL 08/15/19 19 Unknown COMPLETE BLOOD COUNT [id number] HEMATOCRIT 38.6 % 08/15/19 19 Unknown COMPLETE BLOOD COUNT [id number] MCV 95.5 fL 9 Unknown COMPLETE BLOOD COUNT [id number] MCH 30.2 pg 9 Unknown COMPLETE BLOOD COUNT [id number] MCHC 31.6 g/dL 9 Unknown COMPLETE BLOOD COUNT [id number] PLATELET COUNT 215 10e9/L 12/2018 Unknown COMPLETE BLOOD COUNT [id number] Mean Plt Volume 11.2 fL 12/2018 Unknown COMPLETE BLOOD COUNT [id number] Neut Auto 45.7 % 9 Unknown COMPLETE BLOOD COUNT [id number] Lymph Auto 42.1 % 08/15/19 19 Unknown COMPLETE BLOOD COUNT [id number] [place] Auto 9.2 % 9 Unknown COMPLETE BLOOD COUNT 3381076 RDW 13.4 % 9 Unknown COMPLETE BLOOD COUNT [id number] Eos Auto 2.7 % 9 Unknown COMPLETE BLOOD COUNT 0797282 Baso Auto 0.3 % 9 Unknown COMPLETE BLOOD COUNT [id number] Neutrophil Abs 3.56 10e9/L Unknown COMPLETE BLOOD COUNT [id number] Lymphocyte Abs 3.28 10e9/L Unknown COMPLETE BLOOD COUNT [id number] Monocyte Abs 0.72 10e9/L 08/05 Unknown COMPLETE BLOOD COUNT [id number] Eosinophil Abs 0.21 10e9/L Unknown COMPLETE BLOOD COUNT [id number] RDW-SD 44.9 fL 9 Unknown COMPLETE BLOOD COUNT [id number] Basophil Abs 0.02 10e9/L 08/05 Unknown COMPLETE BLOOD COUNT [id number] WBC 5.2 10e9/L 12/01/19 18 Unknown COMPLETE BLOOD COUNT [id number] RBC 4.21 10e12/L 2017 Unknown COMPLETE BLOOD COUNT [id number] HEMOGLOBIN 12.8 g/dL 12/01/19 18 Unknown COMPLETE BLOOD COUNT [id number] HEMATOCRIT 39.0 % 12/01/19 18 Unknown COMPLETE BLOOD COUNT [id number] MCV 92.6 fL 8 Unknown COMPLETE BLOOD COUNT [id number] MCH 30.4 pg 8 Unknown COMPLETE BLOOD COUNT [id number] MCHC 32.8 g/dL 8 Unknown COMPLETE BLOOD COUNT [id number] PLATELET COUNT 202 10e9/L Unknown COMPLETE BLOOD COUNT 3907887 Mean Plt Volume 10.7 fL Unknown COMPLETE BLOOD COUNT [id number] Neut Auto 40.9 % 8 Unknown COMPLETE BLOOD COUNT [id number] Lymph Auto 46.3 % 12/01/19 18 Unknown COMPLETE BLOOD COUNT [id number] [place] Auto 9.3 % 8 Unknown COMPLETE BLOOD COUNT 7839804 RDW 13.7 % 8 Unknown COMPLETE BLOOD COUNT 2277701 Eos Auto 2.9 % 8 Unknown COMPLETE BLOOD COUNT 4946553 Baso Auto 0.6 % 8 Unknown COMPLETE BLOOD COUNT 2976642 Neutrophil Abs 2.13 10e9/L Unknown COMPLETE BLOOD COUNT 7670284 Lymphocyte Abs 2.41 10e9/L Unknown COMPLETE BLOOD COUNT [id number] Monocyte Abs 0.48 10e9/L 11/06 Unknown COMPLETE BLOOD COUNT [id number] Eosinophil Abs 0.15 10e9/L Unknown COMPLETE BLOOD COUNT [id number] RDW-SD 45.2 fL 8 Unknown COMPLETE BLOOD COUNT [id number] Basophil Abs 0.03 10e9/L 11/06 [place] [address] Glucose 118 mg/dL 11/30 [place] [address] CREATININE 1.01 mg/dL [place] [address] BUN 14 mg/dL 11/30 [place] [address] SODIUM 141 mmol/L 11/06 [place] [address] POTASSIUM 4.0 mmol/L 11/06 [place] [address] CHLORIDE 108 mmol/L 11/06 [place] [address] Bicarbonate 25 mmol/L [place] [address] AGAP 8 mmol/L 11/30 [place] [address] CALCIUM 9.6 mg/dL 11/30 Unknown FREE T4 46225 T4 Free 1.23 ng/dL 11/30/2017 Unknown GFR CALC 2796496 GFR Non Afr Amr 53 mL/min 11/30/2017 Unk nown GFR CALC 8950219 GFR Afr Amr >60 mL/min 11/30/2017 Unknow n THYROID STIMULATING HORMONE 89086 TSH 2.124 uIU/mL 11/30/2017 Unknown LIPID GROUP 04518 Cholesterol 152 mg/dL 09/28/2017 Unkno wn LIPID GROUP 68362 Triglyceride 151 mg/dL 09/28/2017 Unkn own LIPID GROUP 07934 HDL CHOLESTEROL 47 mg/dL 09/28/2017 U nknown LIPID GROUP 09182 Chol/HDL Ratio 3.23 ratio 09/28/2017 U nknown LIPID GROUP 87219 NON-HDL Chol 105 mg/dL 09/28/2017 Unkn own LIPID GROUP 46761 LDL Cholesterol 75 mg/dL 09/28/2017 U nknown ASSAY OF TROPONIN QUANT 69860 Troponin-I <0.30 ng/mL Unknown COMPREHENSIVE METABOLIC 03489 AST 20 U/L 2017 Unknown COMPREHENSIVE METABOLIC 96444 ALT 14 U/L 2017 Unknown COMPREHENSIVE METABOLIC 86860 BUN 19 mg/dL 2017 Unknown COMPREHENSIVE METABOLIC 00779 ALBUMIN 4.2 g/dL 2017 Unknown COMPREHENSIVE METABOLIC 43844 CHLORIDE 102 mmol/L 09/27 Unknown COMPREHENSIVE METABOLIC 51251 Bili Total 0.4 mg/dL 09/27 Unknown COMPREHENSIVE METABOLIC 76455 ALK PHOS 66 U/L 2017 Unknown COMPREHENSIVE METABOLIC 93017 SODIUM 135 mmol/L 09/27 Unknown COMPREHENSIVE METABOLIC 15010 CREATININE 1.01 mg/dL 09/05 Unknown COMPREHENSIVE METABOLIC 79781 CALCIUM 9.3 mg/dL 2017 Unknown COMPREHENSIVE METABOLIC 01971 POTASSIUM 4.8 mmol/L 09/27 Unknown COMPREHENSIVE METABOLIC 60093 Total Protein 7.0 g/dL Unknown COMPREHENSIVE METABOLIC 72096 Glucose 91 mg/dL 2017 Unknown COMPREHENSIVE METABOLIC 65163 Bicarbonate 23 mmol/L 09/05 Unknown COMPREHENSIVE METABOLIC 26500 AGAP 10 mmol/L 2017 Unknown COMPLETE BLOOD COUNT [id number] WBC 7.5 10e9/L 09/28/19 18 Unknown COMPLETE BLOOD COUNT [id number] RBC 4.13 10e12/L 2017 Unknown COMPLETE BLOOD COUNT [id number] HEMOGLOBIN 12.6 g/dL 09/28/19 18 Unknown COMPLETE BLOOD COUNT [id number] HEMATOCRIT 38.4 % 09/28/19 18 Unknown COMPLETE BLOOD COUNT [id number] MCV 93.0 fL 8 Unknown COMPLETE BLOOD COUNT [id number] MCH 30.5 pg 8 Unknown COMPLETE BLOOD COUNT [id number] MCHC 32.8 g/dL 8 Unknown COMPLETE BLOOD COUNT [id number] PLATELET COUNT 204 10e9/L Unknown COMPLETE BLOOD COUNT [id number] Mean Plt Volume 10.9 fL Unknown COMPLETE BLOOD COUNT 9782337 Neut Auto 43.1 % 8 Unknown COMPLETE BLOOD COUNT 8821676 Lymph Auto 45.0 % 09/28/19 18 Unknown COMPLETE BLOOD COUNT 8231111 [place] Auto 9.2 % 8 Unknown COMPLETE BLOOD COUNT 2942031 RDW 13.4 % 8 Unknown COMPLETE BLOOD COUNT 2628740 Eos Auto 2.3 % 8 Unknown COMPLETE BLOOD COUNT 6428359 Baso Auto 0.4 % 8 Unknown COMPLETE BLOOD COUNT 7594940 Neutrophil Abs 3.23 10e9/L Unknown COMPLETE BLOOD COUNT 6850811 Lymphocyte Abs 3.38 10e9/L Unknown COMPLETE BLOOD COUNT [id number] Monocyte Abs 0.69 10e9/L 09/05 Unknown COMPLETE BLOOD COUNT [id number] Eosinophil Abs 0.17 10e9/L Unknown COMPLETE BLOOD COUNT 6289601 RDW-SD 44.4 fL 8 Unknown COMPLETE BLOOD COUNT 6175704 Basophil Abs 0.03 10e9/L 09/05 Unknown GFR CALC 3535652 GFR Non Afr Amr 53 mL/min 09/27/2017 Unk nown GFR CALC 2842184 GFR Afr Amr >60 mL/min 09/27/2017 Unknow n GLYCOSYLATED HEMOGLOBIN TEST 48058 Hgb A1c 55206-2 5.4 % 0 09/27/2017 Unknown MEAN GLUC 3229893 Calc Mean Gluc 108 mg/dL 09/27/2017 Unkn own MEAN GLUC 9039663 Calc Mean Gluc 114 mg/dL 11/01/2016 Unkn own LIPID GROUP 16135 Cholesterol 146 mg/dL 11/01/2016 Unkno wn LIPID GROUP 62064 Triglyceride 119 mg/dL 11/01/2016 Unkn own LIPID GROUP 86838 HDL CHOLESTEROL 47 mg/dL 11/01/2016 U nknown LIPID GROUP 78259 Chol/HDL Ratio 3.11 ratio 11/01/2016 U nknown LIPID GROUP 38435 NON-HDL Chol 99 mg/dL 11/01/2016 Unkn own LIPID GROUP 49016 LDL Cholesterol 75 mg/dL 11/01/2016 U nknown GLYCOSYLATED HEMOGLOBIN TEST 12523 Hgb A1c 22529-3 5.6 % 0 11/01/2016 Unknown COMPREHENSIVE METABOLIC 45544 AST 22 U/L 2016 Unknown COMPREHENSIVE METABOLIC 37714 ALT 12 U/L 2016 Unknown COMPREHENSIVE METABOLIC 52914 BUN 17 mg/dL 2016 Unknown COMPREHENSIVE METABOLIC 33707 ALBUMIN 4.0 g/dL 2016 Unknown COMPREHENSIVE METABOLIC 45844 CHLORIDE 110 mmol/L 11/01 Unknown COMPREHENSIVE METABOLIC 65702 Bili Total 0.4 mg/dL 11/01 Unknown COMPREHENSIVE METABOLIC 42643 ALK PHOS 63 U/L 2016 Unknown COMPREHENSIVE METABOLIC 48952 SODIUM 140 mmol/L 11/01 Unknown COMPREHENSIVE METABOLIC 23816 CREATININE 1.05 mg/dL 10/06 Unknown COMPREHENSIVE METABOLIC 55501 CALCIUM 9.2 mg/dL 2016 Unknown COMPREHENSIVE METABOLIC 74111 POTASSIUM 4.2 mmol/L 11/01 Unknown COMPREHENSIVE METABOLIC 42481 Total Protein 6.2 g/dL Unknown COMPREHENSIVE METABOLIC 80347 Glucose 87 mg/dL 2016 Unknown COMPREHENSIVE METABOLIC 48949 Bicarbonate 24 mmol/L 10/06 Unknown COMPREHENSIVE METABOLIC 99425 AGAP 6 mmol/L 2016 Unknown GFR CALC 6299849 GFR Non Afr Amr 51 mL/min 11/01/2016 Unk nown GFR CALC 9518570 GFR Afr Amr >60 mL/min 11/01/2016 Unknow n COMPLETE BLOOD COUNT 2125624 WBC 6.7 10e9/L 11/02/19 17 Unknown COMPLETE BLOOD COUNT 2520540 RBC 4.04 10e12/L 2016 Unknown COMPLETE BLOOD COUNT 3245281 HEMOGLOBIN 12.1 g/dL 11/02/19 17 Unknown COMPLETE BLOOD COUNT 4682850 HEMATOCRIT 38.0 % 11/02/19 17 Unknown COMPLETE BLOOD COUNT 0678057 MCV 94.1 fL 7 Unknown COMPLETE BLOOD COUNT 5746071 MCH 30.0 pg 7 Unknown COMPLETE BLOOD COUNT 2572527 MCHC 31.8 g/dL 7 Unknown COMPLETE BLOOD COUNT 2133184 PLATELET COUNT 206 10e9/L Unknown COMPLETE BLOOD COUNT 9298655 Mean Plt Volume 11.3 fL Unknown COMPLETE BLOOD COUNT 1512903 Neut Auto 35.8 % 7 Unknown COMPLETE BLOOD COUNT 1065007 Lymph Auto 51.6 % 11/02/19 17 Unknown COMPLETE BLOOD COUNT 3345465 [place] Auto 8.8 % 7 Unknown COMPLETE BLOOD COUNT 6842982 RDW 13.5 % 7 Unknown COMPLETE BLOOD COUNT 2824231 Eos Auto 3.4 % 7 Unknown COMPLETE BLOOD COUNT 3155670 Baso Auto 0.4 % 7 Unknown COMPLETE BLOOD COUNT 2416193 Neutrophil Abs 2.40 10e9/L Unknown COMPLETE BLOOD COUNT 8916247 Lymphocyte Abs 3.46 10e9/L Unknown COMPLETE BLOOD COUNT 9458170 Monocyte Abs 0.59 10e9/L 10/06 Unknown COMPLETE BLOOD COUNT 2885566 Eosinophil Abs 0.23 10e9/L Unknown COMPLETE BLOOD COUNT 9231676 RDW-SD 45.3 fL 7 Unknown COMPLETE BLOOD COUNT 4589870 Basophil Abs 0.03 10e9/L 10/06 Unknown THYROID STIMULATING HORMONE 18507 TSH 1.981 uIU/mL 11/01/2016 Unknown COMPLETE BLOOD COUNT 6206057 WBC 6.0 10e9/L 05/14/19 17 Unknown COMPLETE BLOOD COUNT 4173045 RBC 4.29 10e12/L 2016 Unknown COMPLETE BLOOD COUNT 1781292 HEMOGLOBIN 12.9 g/dL 05/14/19 17 Unknown COMPLETE BLOOD COUNT 1749994 HEMATOCRIT 38.4 % 05/14/19 17 Unknown COMPLETE BLOOD COUNT 4712620 MCV 89.5 fL 7 Unknown COMPLETE BLOOD COUNT 9380456 MCH 30.1 pg 7 Unknown COMPLETE BLOOD COUNT 5600823 MCHC 33.6 g/dL 7 Unknown COMPLETE BLOOD COUNT 1554622 PLATELET COUNT 181 10e9/L 11/2016 Unknown COMPLETE BLOOD COUNT 2993684 Mean Plt Volume 11.7 fL 11/2016 Unknown COMPLETE BLOOD COUNT 8636918 Neut Auto 36.9 % 7 Unknown COMPLETE BLOOD COUNT 1909858 Lymph Auto 50.4 % 05/14/19 17 Unknown COMPLETE BLOOD COUNT 1695799 [place] Auto 9.0 % 7 Unknown COMPLETE BLOOD COUNT 8472859 RDW 13.7 % 7 Unknown COMPLETE BLOOD COUNT 3320953 Eos Auto 3.4 % 7 Unknown COMPLETE BLOOD COUNT 9864853 Baso Auto 0.3 % 7 Unknown COMPLETE BLOOD COUNT 6004757 Neutrophil Abs 2.21 10e9/L Unknown COMPLETE BLOOD COUNT 2902064 Lymphocyte Abs 3.02 10e9/L Unknown COMPLETE BLOOD COUNT 8814411 Monocyte Abs 0.54 10e9/L 11/2016 Unknown COMPLETE BLOOD COUNT 8984405 Eosinophil Abs 0.20 10e9/L Unknown COMPLETE BLOOD COUNT 7045342 RDW-SD 44.0 fL 7 Unknown COMPLETE BLOOD COUNT 3456348 Basophil Abs 0.02 10e9/L 11/2016 Unknown GLYCOSYLATED HEMOGLOBIN TEST 72253 Hgb A1c 68914-4 5.4 % 0 05/13/2016 Unknown THYROID STIMULATING HORMONE 38004 TSH 2.200 uIU/mL 05/13/2016 Unknown GFR CALC 4829106 GFR Non Afr Amr 50 mL/min 05/13/2016 Unk nown GFR CALC 0754523 GFR Afr Amr >60 mL/min 05/13/2016 Unknow n MEAN GLUC 7267143 Calc Mean Gluc 108 mg/dL 05/13/2016 Unkn own COMPREHENSIVE METABOLIC 32054 AST 18 U/L 2016 Unknown COMPREHENSIVE METABOLIC 42433 ALT 10 U/L 2016 Unknown COMPREHENSIVE METABOLIC 55613 BUN 20 mg/dL 2016 Unknown COMPREHENSIVE METABOLIC 28079 ALBUMIN 4.1 g/dL 2016 Unknown COMPREHENSIVE METABOLIC 89328 CHLORIDE 109 mmol/L 05/13 Unknown COMPREHENSIVE METABOLIC 50249 Bili Total 0.6 mg/dL 05/13 Unknown COMPREHENSIVE METABOLIC 27289 ALK PHOS 64 U/L 2016 Unknown COMPREHENSIVE METABOLIC 96538 SODIUM 141 mmol/L 05/13 Unknown COMPREHENSIVE METABOLIC 30233 CREATININE 1.06 mg/dL 11/2016 Unknown COMPREHENSIVE METABOLIC 55924 CALCIUM 9.9 mg/dL 2016 Unknown COMPREHENSIVE METABOLIC 75275 POTASSIUM 4.2 mmol/L 05/13 Unknown COMPREHENSIVE METABOLIC 33764 Total Protein 6.3 g/dL Unknown COMPREHENSIVE METABOLIC 95672 Glucose 99 mg/dL 2016 Unknown COMPREHENSIVE METABOLIC 01356 Bicarbonate 21 mmol/L 11/2016 Unknown COMPREHENSIVE METABOLIC 67286 AGAP 11 mmol/L 2016 Unknown LIPID GROUP 76112 Cholesterol 169 mg/dL 11/25/2015 Unkno wn LIPID GROUP 72282 Triglyceride 165 mg/dL 11/25/2015 Unkn own LIPID GROUP 03722 HDL CHOLESTEROL 43 mg/dL 11/25/2015 U nknown LIPID GROUP 87034 Chol/HDL Ratio 3.93 ratio 11/25/2015 U nknown LIPID GROUP 42679 NON-HDL Chol 126 mg/dL 11/25/2015 Unkn own LIPID GROUP 36142 LDL Cholesterol 93 mg/dL 11/25/2015 U nknown COMPREHENSIVE METABOLIC 10328 AST 18 U/L 2015 Unknown COMPREHENSIVE METABOLIC 95908 ALT 10 U/L 2015 Unknown COMPREHENSIVE METABOLIC 36757 BUN 20 mg/dL 2015 Unknown COMPREHENSIVE METABOLIC 14759 ALBUMIN 3.9 g/dL 2015 Unknown COMPREHENSIVE METABOLIC 13817 CHLORIDE 110 mmol/L 11/24 Unknown COMPREHENSIVE METABOLIC 24285 Bili Total 0.5 mg/dL 11/24 Unknown COMPREHENSIVE METABOLIC 07563 ALK PHOS 72 U/L 2015 Unknown COMPREHENSIVE METABOLIC 30065 SODIUM 141 mmol/L 11/24 Unknown COMPREHENSIVE METABOLIC 30169 CREATININE 1.12 mg/dL 11/06 Unknown COMPREHENSIVE METABOLIC 84834 CALCIUM 9.7 mg/dL 2015 Unknown COMPREHENSIVE METABOLIC 63834 POTASSIUM 4.4 mmol/L 11/24 Unknown COMPREHENSIVE METABOLIC 30430 Total Protein 6.2 g/dL Unknown COMPREHENSIVE METABOLIC 22032 Glucose 90 mg/dL 2015 Unknown COMPREHENSIVE METABOLIC 97810 Bicarbonate 23 mmol/L 11/06 Unknown COMPREHENSIVE METABOLIC 18011 AGAP 8 mmol/L 2015 Unknown GFR CALC 0645913 GFR Non Afr Amr 47 mL/min 11/25/2015 Unk nown GFR CALC 2727856 GFR Afr Amr 57 mL/min 11/25/2015 Unknown GLYCOSYLATED HEMOGLOBIN TEST 86815 Hgb A1c 18158-6 5.5 % 0 11/25/2015 Unknown THYROID STIMULATING HORMONE 10124 TSH 2.537 uIU/mL 11/25/2015 Unknown FREE T4 90284 T4 Free 1.36 ng/dL 11/25/2015 Unknown COMPLETE BLOOD COUNT 8875390 WBC 6.8 10e9/L 11/25/19 16 Unknown COMPLETE BLOOD COUNT 1287892 RBC 4.20 10e12/L 2015 Unknown COMPLETE BLOOD COUNT 7669702 HEMOGLOBIN 12.5 g/dL 11/25/19 16 Unknown COMPLETE BLOOD COUNT 9838569 HEMATOCRIT 38.0 % 11/25/19 16 Unknown COMPLETE BLOOD COUNT 6013016 MCV 90.5 fL 6 Unknown COMPLETE BLOOD COUNT 8845597 MCH 29.8 pg 6 Unknown COMPLETE BLOOD COUNT 9565209 MCHC 32.9 g/dL 6 Unknown COMPLETE BLOOD COUNT 8767753 PLATELET COUNT 197 10e9/L Unknown COMPLETE BLOOD COUNT 9370450 Mean Plt Volume 11.7 fL Unknown COMPLETE BLOOD COUNT 7415767 Neut Auto 41.3 % 6 Unknown COMPLETE BLOOD COUNT 4962776 Lymph Auto 47.1 % 11/25/19 16 Unknown COMPLETE BLOOD COUNT 2004098 [place] Auto 7.8 % 6 Unknown COMPLETE BLOOD COUNT 8547870 RDW 13.8 % 6 Unknown COMPLETE BLOOD COUNT 4763973 Eos Auto 3.4 % 6 Unknown COMPLETE BLOOD COUNT 2301149 Baso Auto 0.4 % 6 Unknown COMPLETE BLOOD COUNT 5893978 Neutrophil Abs 2.81 10e9/L Unknown COMPLETE BLOOD COUNT 9509569 Lymphocyte Abs 3.20 10e9/L Unknown COMPLETE BLOOD COUNT 2677037 Monocyte Abs 0.53 10e9/L 11/06 Unknown COMPLETE BLOOD COUNT 8211555 Eosinophil Abs 0.23 10e9/L Unknown COMPLETE BLOOD COUNT 1646695 RDW-SD 44.4 fL 6 Unknown COMPLETE BLOOD COUNT 2119802 Basophil Abs 0.03 10e9/L 11/06 Unknown MEAN GLUC 6120011 Calc Mean Gluc 111 mg/dL 11/25/2015 [place] [address] Glucose 89 MG/DL 02/19 [place] [address] CREATININE 1.12 MG/DL [place] [address] BUN 20 MG/DL 02/19 [place] [address] SODIUM 139 MMOL/L 02/04 [place] [address] POTASSIUM 4.6 MMOL/L 02/04 [place] [address] CHLORIDE 108 MMOL/L 02/04 [place] [address] BICARB 26 MMOL/L 02/19 [place] [address] ANION GAP 5 MEQ/L 02/19 [place] [address] CALCIUM 10.0 MG/DL 02/04 Unknown GFR CALC 9653215 GFR AA 57.0L ML/MIN 02/19/2015 Unknow n GFR CALC 1267845 GFR NON-AA 47.0L ML/MIN 02/19/2015 Unkno wn THYROID STIMULATING HORMONE 58121 TSH 2.378 uIU/ML 11/14/2014 Unknown COMPLETE BLOOD COUNT 4466179 WBC 6.4 10e9/L 11/15/19 15 Unknown COMPLETE BLOOD COUNT 7435509 RBC 3.99 10e12/L 2014 Unknown COMPLETE BLOOD COUNT 1744603 HGB 11.9 g/dL 5 Unknown COMPLETE BLOOD COUNT 2342755 HCT DET 36.9 % 5 Unknown COMPLETE BLOOD COUNT 3183221 MCV 92.5 fL 5 Unknown COMPLETE BLOOD COUNT 9147569 MCH 29.8 pg 5 Unknown COMPLETE BLOOD COUNT 0639589 MCHC 32.2 g/dL 5 Unknown COMPLETE BLOOD COUNT 4911782 PLT 172 10e9/L 11/15/19 15 Unknown COMPLETE BLOOD COUNT 7613964 MPV 11.7 fL 5 Unknown COMPLETE BLOOD COUNT 2108082 [place] % 40.4 % 5 Unknown COMPLETE BLOOD COUNT 1108754 LY % 48.0 % 5 Unknown COMPLETE BLOOD COUNT 6181690 MON % 8.3 % 5 Unknown COMPLETE BLOOD COUNT 5641913 EOS % 2.8 % 5 Unknown COMPLETE BLOOD COUNT 2001681 BASO % 0.5 % 5 Unknown COMPLETE BLOOD COUNT 3778263 RDW 13.6 % 5 Unknown COMPLETE BLOOD COUNT 1203352 ABS CINTHYA 2.59 10e9/L 015 Unknown COMPLETE BLOOD COUNT 7411324 ABS LYMPH 3.07 10e9/L 015 Unknown COMPLETE BLOOD COUNT 7210801 ABS MONO 0.53 10e9/L 015 Unknown COMPLETE BLOOD COUNT 1759630 ABS EOS 0.18 10e9/L 015 Unknown COMPLETE BLOOD COUNT 1470500 ABS BASO 0.03 10e9/L 015 Unknown COMPLETE BLOOD COUNT 6230729 RDW-SD 44.9 fL 5 Unknown LIPID GROUP 90301 HDL TEST 42 MG/DL 11/14/2014 Unknown LIPID GROUP 01056 TRIG 177 MG/DL 11/14/2014 Unknown LIPID GROUP 51588 TEST LDL 72 MG/DL 11/14/2014 Unknown LIPID GROUP 09525 CHOL 149 MG/DL 11/14/2014 Unknown LIPID GROUP 35163 RCHOL/HDL 3.55 RATIO 11/14/2014 Unknow n LIPID GROUP 32372 NON-HDL CH 107 MG/DL 11/14/2014 Unknow n GLYCOSYLATED HEMOGLOBIN TEST 01452 A1C HPLC 29299-5 5.5 % 0 11/14/2014 Unknown FREE T4 56166 FREE T4 1.39 NG/DL 11/14/2014 Unknown GFR CALC 6569452 GFR AA 55.0L ML/MIN 11/14/2014 Unknow n GFR CALC 9659198 GFR NON-AA 46.0L ML/MIN 11/14/2014 Unkno wn COMPREHENSIVE METABOLIC 24318 AST 17 U/L 2014 Unknown COMPREHENSIVE METABOLIC 33414 ALT 10 IU/L 2014 Unknown COMPREHENSIVE METABOLIC 79463 BUN 20 MG/DL 2014 Unknown COMPREHENSIVE METABOLIC 38773 ALBUMIN 3.9 GM/DL 2014 Unknown COMPREHENSIVE METABOLIC 39967 CHLORIDE 111 MMOL/L 11/14 Unknown COMPREHENSIVE METABOLIC 07603 BILI TOT 0.4 MG/DL 2014 Unknown COMPREHENSIVE METABOLIC 33654 ALK PHOS 70 U/L 2014 Unknown COMPREHENSIVE METABOLIC 40601 SODIUM 142 MMOL/L 11/14 Unknown COMPREHENSIVE METABOLIC 01122 CREATININE 1.16 MG/DL 11/05 Unknown COMPREHENSIVE METABOLIC 37840 CALCIUM 9.4 MG/DL 2014 Unknown COMPREHENSIVE METABOLIC 75925 POTASSIUM 4.6 MMOL/L 11/14 Unknown COMPREHENSIVE METABOLIC 10767 PROT TOT 6.2 GM/DL 2014 Unknown COMPREHENSIVE METABOLIC 32009 Glucose 90 MG/DL 2014 Unknown COMPREHENSIVE METABOLIC 51459 BICARB 24 MMOL/L 2014 Unknown COMPREHENSIVE METABOLIC 05322 ANION GAP 7 MEQ/L 2014 Unknown THYROID STIMULATING HORMONE 98162 TSH 2.427 uIU/ML 05/10/2014 Unknown LIPID GROUP 34181 HDL TEST 47 MG/DL 05/10/2014 Unknown LIPID GROUP 40402 TRIG 145 MG/DL 05/10/2014 Unknown LIPID GROUP 12433 TEST LDL 73 MG/DL 05/10/2014 Unknown LIPID GROUP 41586 CHOL 149 MG/DL 05/10/2014 Unknown LIPID GROUP 64351 RCHOL/HDL 3.17 RATIO 05/10/2014 Unknow n LIPID GROUP 78222 NON-HDL CH 102 MG/DL 05/10/2014 Unknow n COMPREHENSIVE METABOLIC 76060 AST 17 U/L 2014 Unknown COMPREHENSIVE METABOLIC 71948 ALT 9 IU/L 2014 Unknown COMPREHENSIVE METABOLIC 61990 BUN 19 MG/DL 2014 Unknown COMPREHENSIVE METABOLIC 69344 ALBUMIN 4.3 GM/DL 2014 Unknown COMPREHENSIVE METABOLIC 59892 CHLORIDE 108 MMOL/L 05/10 Unknown COMPREHENSIVE METABOLIC 69482 BILI TOT 0.5 MG/DL 2014 Unknown COMPREHENSIVE METABOLIC 88789 ALK PHOS 68 U/L 2014 Unknown COMPREHENSIVE METABOLIC 83964 SODIUM 140 MMOL/L 05/10 Unknown COMPREHENSIVE METABOLIC 18487 CREATININE 1.08 MG/DL 08/2014 Unknown COMPREHENSIVE METABOLIC 97560 CALCIUM 9.9 MG/DL 2014 Unknown COMPREHENSIVE METABOLIC 23859 POTASSIUM 4.3 MMOL/L 05/10 Unknown COMPREHENSIVE METABOLIC 84576 PROT TOT 7.2 GM/DL 2014 Unknown COMPREHENSIVE METABOLIC 54869 Glucose 94 MG/DL 2014 Unknown COMPREHENSIVE METABOLIC 71724 BICARB 26 MMOL/L 2014 Unknown COMPREHENSIVE METABOLIC 14148 ANION GAP 6 MEQ/L 2014 Unknown GFR CALC 6159336 GFR AA 60.0L ML/MIN 05/10/2014 Unknow n GFR CALC 9333536 GFR NON-AA 49.0L ML/MIN 05/10/2014 Unkno wn GLYCOSYLATED HEMOGLOBIN TEST 96542 A1C HPLC 18121-6 5.6 % 0 05/10/2014 Unknown COMPLETE BLOOD COUNT 2527066 WBC 7.2 10e9/L 05/11/19 15 Unknown COMPLETE BLOOD COUNT 2583591 RBC 4.28 10e12/L 2014 Unknown COMPLETE BLOOD COUNT 6511166 HGB 12.8 g/dL 5 Unknown COMPLETE BLOOD COUNT 4894316 HCT DET 39.3 % 5 Unknown COMPLETE BLOOD COUNT 9981773 MCV 91.8 fL 5 Unknown COMPLETE BLOOD COUNT 2574645 MCH 29.9 pg 5 Unknown COMPLETE BLOOD COUNT 9381155 MCHC 32.6 g/dL 5 Unknown COMPLETE BLOOD COUNT 3633066 PLT 189 10e9/L 05/11/19 15 Unknown COMPLETE BLOOD COUNT 9473877 MPV 11.2 fL 5 Unknown COMPLETE BLOOD COUNT 1883597 C[place]TH[place] % 38.0 % 5 Unknown COMPLETE BLOOD COUNT 5070791 LY % 51.0 % 5 Unknown COMPLETE BLOOD COUNT 7632547 MON % 7.7 % 5 Unknown COMPLETE BLOOD COUNT 2364762 EOS % 2.9 % 5 Unknown COMPLETE BLOOD COUNT 7722886 BASO % 0.4 % 5 Unknown COMPLETE BLOOD COUNT 3834909 RDW 14.0 % 5 Unknown COMPLETE BLOOD COUNT 7287462 ABS CINTHYA 2.74 10e9/L 015 Unknown COMPLETE BLOOD COUNT 9582633 ABS LYMPH 3.67 10e9/L 015 Unknown COMPLETE BLOOD COUNT 5375885 ABS MONO 0.55 10e9/L 015 Unknown COMPLETE BLOOD COUNT 2900504 ABS EOS 0.21 10e9/L 015 Unknown COMPLETE BLOOD COUNT 4935405 ABS BASO 0.03 10e9/L 015 Unknown COMPLETE BLOOD COUNT 7030764 RDW-SD 46.1 fL 5 Unknown FREE T4 08773 FREE T4 1.14 NG/DL 05/10/2014 Unknown GLYCOSYLATED HEMOGLOBIN TEST 89499 A1C HPLC 39218-6 5.2 % 0 03/29/2013 Unknown FREE T4 09013 FREE T4 1.40 NG/DL 03/28/2013 Unknown GFR CALC 0958893 GFR AA >60 ML/MIN 03/28/2013 Unknown GFR CALC 9110467 GFR NON-AA 52.0L ML/MIN 03/28/2013 Unkno wn COMPREHENSIVE METABOLIC 35810 AST 15 U/L 2013 Unknown COMPREHENSIVE METABOLIC 95886 ALT 9 IU/L 2013 Unknown COMPREHENSIVE METABOLIC 09446 BUN 17 MG/DL 2013 Unknown COMPREHENSIVE METABOLIC 98618 ALBUMIN 4.0 GM/DL 2013 Unknown COMPREHENSIVE METABOLIC 50302 CHLORIDE 112 MMOL/L 03/28 Unknown COMPREHENSIVE METABOLIC 25306 BILI TOT 0.5 MG/DL 2013 Unknown COMPREHENSIVE METABOLIC 32783 ALK PHOS 66 U/L 2013 Unknown COMPREHENSIVE METABOLIC 88611 SODIUM 140 MMOL/L 03/28 Unknown COMPREHENSIVE METABOLIC 39785 CREATININE 1.03 MG/DL 03/08 Unknown COMPREHENSIVE METABOLIC 21336 CALCIUM 9.5 MG/DL 2013 Unknown COMPREHENSIVE METABOLIC 38610 POTASSIUM 4.1 MMOL/L 03/28 Unknown COMPREHENSIVE METABOLIC 62340 PROT TOT 6.2 GM/DL 2013 Unknown COMPREHENSIVE METABOLIC 79650 Glucose 102 MG/DL 2013 Unknown COMPREHENSIVE METABOLIC 62908 BICARB 23 MMOL/L 2013 Unknown COMPREHENSIVE METABOLIC 34812 ANION GAP 5 MEQ/L 2013 Unknown THYROID STIMULATING HORMONE 40356 TSH 2.074 uIU/ML 03/28/2013 Unknown VITAMIN B 12 FOLIC ACID 60004|24501 VIT B 12 423 PG/ML 03/08 Unknown VITAMIN B 12 FOLIC ACID 05062|09790 FOLIC ACID 19.7 NG/ML Unknown LIPID GROUP 17457 HDL TEST 40 MG/DL 03/28/2013 Unknown LIPID GROUP 46225 TRIG 145 MG/DL 03/28/2013 Unknown LIPID GROUP 82401 TEST LDL 81 MG/DL 03/28/2013 Unknown LIPID GROUP 22451 CHOL 150 MG/DL 03/28/2013 Unknown LIPID GROUP 23815 RCHOL/HDL 3.75 RATIO 03/28/2013 Unknow n COMPLETE BLOOD COUNT 8200298 WBC 6.0 10e9/L 03/28/19 14 Unknown COMPLETE BLOOD COUNT 6660541 RBC 4.26 10e12/L 2013 Unknown COMPLETE BLOOD COUNT 6333834 HGB 12.7 g/dL 4 Unknown COMPLETE BLOOD COUNT 1199067 HCT DET 38.7 % 4 Unknown COMPLETE BLOOD COUNT 5788236 MCV 90.8 fL 4 Unknown COMPLETE BLOOD COUNT 1823389 MCH 29.8 pg 4 Unknown COMPLETE BLOOD COUNT 6521079 MCHC 32.8 g/dL 4 Unknown COMPLETE BLOOD COUNT 0292397 PLT 178 10e9/L 03/28/19 14 Unknown COMPLETE BLOOD COUNT 8957039 MPV 11.7 fL 4 Unknown COMPLETE BLOOD COUNT 9100407 CINTHYA % 30.5 % 4 Unknown COMPLETE BLOOD COUNT 8625546 LY % 55.4 % 4 Unknown COMPLETE BLOOD COUNT 9220748 MON % 9.0 % 4 Unknown COMPLETE BLOOD COUNT 0391233 EOS % 4.4 % 4 Unknown COMPLETE BLOOD COUNT 1844954 BASO % 0.7 % 4 Unknown COMPLETE BLOOD COUNT 2083751 RDW 13.3 % 4 Unknown COMPLETE BLOOD COUNT 2478944 ABS CINTHYA 1.83 10e9/L 014 Unknown COMPLETE BLOOD COUNT 5430332 ABS LYMPH 3.32 10e9/L 014 Unknown COMPLETE BLOOD COUNT 9156307 ABS MONO 0.54 10e9/L 014 Unknown COMPLETE BLOOD COUNT 6052673 ABS EOS 0.26 10e9/L 014 Unknown COMPLETE BLOOD COUNT 2612776 ABS BASO 0.04 10e9/L 014 Unknown COMPLETE BLOOD COUNT 9098323 RDW-SD 43.2 fL 4 Unknown HEMOGLOBIN A1C (GLYCOSYLATED) 8583787 A1C HPLC 78485-7 5.5 % 02/24/2012 Unknown COMPLETE BLOOD COUNT 1216964 WBC 6.0 10e9/L 02/23/20 12 Unknown COMPLETE BLOOD COUNT 3938110 RBC 4.22 10e12/L 2011 Unknown COMPLETE BLOOD COUNT 1276177 HGB 12.4 g/dL 2 Unknown COMPLETE BLOOD COUNT 7758422 HCT DET 38.2 % 2 Unknown COMPLETE BLOOD COUNT 1609615 MCV 90.5 fL 2 Unknown COMPLETE BLOOD COUNT 2772031 MCH 29.4 pg 2 Unknown COMPLETE BLOOD COUNT 4784273 MCHC 32.5 g/dL 2 Unknown COMPLETE BLOOD COUNT 0187419 PLT 187 10e9/L 02/23/20 12 Unknown COMPLETE BLOOD COUNT 0802663 MPV 11.5 fL 2 Unknown COMPLETE BLOOD COUNT 4943555 CINTHYA % 36.4 % 2 Unknown COMPLETE BLOOD COUNT 5598666 LY % 51.0 % 2 Unknown COMPLETE BLOOD COUNT 5281570 MON % 8.7 % 2 Unknown COMPLETE BLOOD COUNT 7627275 EOS % 3.2 % 2 Unknown COMPLETE BLOOD COUNT 3375320 BASO % 0.7 % 2 Unknown COMPLETE BLOOD COUNT 2477893 RDW 13.7 % 2 Unknown COMPLETE BLOOD COUNT 9077593 ABS CINTHYA 2.18 10e9/L 012 Unknown COMPLETE BLOOD COUNT 5063411 ABS LYMPH 3.06 10e9/L 012 Unknown COMPLETE BLOOD COUNT 3016478 ABS MONO 0.52 10e9/L 012 Unknown COMPLETE BLOOD COUNT 9518137 ABS EOS 0.19 10e9/L 012 Unknown COMPLETE BLOOD COUNT 7675989 ABS BASO 0.04 10e9/L 012 Unknown COMPLETE BLOOD COUNT 6760648 RDW-SD 44.3 fL 2 Unknown LIPID GROUP 43965 HDL TEST 42 MG/DL 02/23/2012 Unknown LIPID GROUP 09842 TRIG 156 MG/DL 02/23/2012 Unknown LIPID GROUP 96360 TEST LDL 80 MG/DL 02/23/2012 Unknown LIPID GROUP 87328 CHOL 153 MG/DL 02/23/2012 Unknown LIPID GROUP 50168 RCHOL/HDL 3.64 RATIO 02/23/2012 Unknow n FREE T4 04550 FREE T4 1.22 NG/DL 02/23/2012 Unknown COMPREHENSIVE METABOLIC 71631 AST 20 U/L 2011 Unknown COMPREHENSIVE METABOLIC 06244 ALT 11 IU/L 2011 Unknown COMPREHENSIVE METABOLIC 30637 BUN 19 MG/DL 2011 Unknown COMPREHENSIVE METABOLIC 63756 ALBUMIN 4.3 GM/DL 2011 Unknown COMPREHENSIVE METABOLIC 71818 CHLORIDE 109 MMOL/L 02/22 Unknown COMPREHENSIVE METABOLIC 74498 BILI TOT 0.6 MG/DL 2011 Unknown COMPREHENSIVE METABOLIC 36607 ALK PHOS 84 U/L 2011 Unknown COMPREHENSIVE METABOLIC 36539 SODIUM 142 MMOL/L 02/22 Unknown COMPREHENSIVE METABOLIC 65201 CREATININE 1.09 MG/DL 02/04 Unknown COMPREHENSIVE METABOLIC 08942 CALCIUM 9.8 MG/DL 2011 Unknown COMPREHENSIVE METABOLIC 37362 POTASSIUM 4.2 MMOL/L 02/22 Unknown COMPREHENSIVE METABOLIC 82164 PROT TOT 6.4 GM/DL 2011 Unknown COMPREHENSIVE METABOLIC 34180 Glucose 89 MG/DL 2011 Unknown COMPREHENSIVE METABOLIC 71270 BICARB 25 MMOL/L 2011 Unknown COMPREHENSIVE METABOLIC 15181 ANION GAP 8 MEQ/L 2011 Unknown GFR CALC 0870138 GFR AA 60.0L ML/MIN 02/23/2012 Unknow n GFR CALC 9827322 GFR NON-AA 49.0L ML/MIN 02/23/2012 Unkno wn THYROID STIMULATING HORMONE 69993 TSH 2.450 uIU/ML 02/23/2012 Unknown COMPREHENSIVE METABOLIC 59401 AST 22 U/L 2011 Unknown COMPREHENSIVE METABOLIC 75211 ALT 14 IU/L 2011 Unknown COMPREHENSIVE METABOLIC 56093 BUN 21 MG/DL 2011 Unknown COMPREHENSIVE METABOLIC 74691 ALBUMIN 4.3 GM/DL 2011 Unknown COMPREHENSIVE METABOLIC 33935 CHLORIDE 106 MMOL/L 04/01 Unknown COMPREHENSIVE METABOLIC 22732 BILI TOT 0.4 MG/DL 2011 Unknown COMPREHENSIVE METABOLIC 80190 ALK PHOS 80 U/L 2011 Unknown COMPREHENSIVE METABOLIC 30778 SODIUM 141 MMOL/L 04/01 Unknown COMPREHENSIVE METABOLIC 98856 CREATININE 1.13 MG/DL 03/08 Unknown COMPREHENSIVE METABOLIC 58777 CALCIUM 9.4 MG/DL 2011 Unknown COMPREHENSIVE METABOLIC 43623 POTASSIUM 4.3 MMOL/L 04/01 Unknown COMPREHENSIVE METABOLIC 90442 PROT TOT 6.7 GM/DL 2011 Unknown COMPREHENSIVE METABOLIC 80218 Glucose 98 MG/DL 2011 Unknown COMPREHENSIVE METABOLIC 71682 BICARB 25 MMOL/L 2011 Unknown COMPREHENSIVE METABOLIC 32912 ANION GAP 10 MEQ/L 2011 Unknown LIPID GROUP 05787 HDL TEST 44 MG/DL 04/01/2011 Unknown LIPID GROUP 72610 TRIG 164 MG/DL 04/01/2011 Unknown LIPID GROUP 58807 TEST LDL 98 MG/DL 04/01/2011 Unknown LIPID GROUP 77454 CHOL 175 MG/DL 04/01/2011 Unknown LIPID GROUP 31944 RCHOL/HDL 3.98 RATIO 04/01/2011 Unknow n COMPLETE BLOOD COUNT 81004 WBC 6.7 10e9/L 04/01/19 12 Unknown COMPLETE BLOOD COUNT 19825 RBC 4.36 10e12/L 2011 Unknown COMPLETE BLOOD COUNT 99694 HGB 12.9 g/dL 2 Unknown COMPLETE BLOOD COUNT 90227 HCT DET 39.4 % 2 Unknown COMPLETE BLOOD COUNT 61417 MCV 90.4 fL 2 Unknown COMPLETE BLOOD COUNT 28947 MCH 29.6 pg 2 Unknown COMPLETE BLOOD COUNT 86783 MCHC 32.7 g/dL 2 Unknown COMPLETE BLOOD COUNT 30059 PLT 184 10e9/L 04/01/19 12 Unknown COMPLETE BLOOD COUNT 65117 MPV 10.9 fL 2 Unknown COMPLETE BLOOD COUNT 32783 CINTHYA % 41.5 % 2 Unknown COMPLETE BLOOD COUNT 31818 LY % 45.7 % 2 Unknown COMPLETE BLOOD COUNT 60097 MON % 9.4 % 2 Unknown COMPLETE BLOOD COUNT 76697 EOS % 3.0 % 2 Unknown COMPLETE BLOOD COUNT 96646 BASO % 0.4 % 2 Unknown COMPLETE BLOOD COUNT 25548 RDW 13.2 % 2 Unknown COMPLETE BLOOD COUNT 59644 ABS CINTHYA 2.78 10e9/L 012 Unknown COMPLETE BLOOD COUNT 87383 ABS LYMPH 3.06 10e9/L 012 Unknown COMPLETE BLOOD COUNT 80512 ABS MONO 0.63 10e9/L 012 Unknown COMPLETE BLOOD COUNT 27012 ABS EOS 0.20 10e9/L 012 Unknown COMPLETE BLOOD COUNT 20690 ABS BASO 0.03 10e9/L 012 Unknown COMPLETE BLOOD COUNT 41227 RDW-SD 42.3 fL 2 Unknown GFR CALC [id number] GFR AA 57.0L ML/MIN 04/01/2011 Unknow n GFR CALC [id number] GFR NON-AA 47.0L ML/MIN 04/01/2011 Unkno wn THYROID STIMULATING HORMONE 03678 TSH 2.663 uIU/ML 04/01/2011 Unknown FREE T4 73594 FREE T4 1.15 NG/DL 04/01/2011 Unknown THYROID STIMULATING HORMONE 95448 TSH 1.908 uIU/ML 07/06/2010 Unknown COMPLETE BLOOD COUNT 33829 WBC 6.4 10e9/L 07/07/19 11 Unknown COMPLETE BLOOD COUNT 04770 RBC 3.92 10e12/L 2010 Unknown COMPLETE BLOOD COUNT 62675 HGB 11.8 g/dL 1 Unknown COMPLETE BLOOD COUNT 68470 HCT DET 36.0 % 1 Unknown COMPLETE BLOOD COUNT 12758 MCV 91.8 fL 1 Unknown COMPLETE BLOOD COUNT 42564 MCH 30.1 pg 1 Unknown COMPLETE BLOOD COUNT 56059 MCHC 32.8 g/dL 1 Unknown COMPLETE BLOOD COUNT 38901 PLT 176 10e9/L 07/07/19 11 Unknown COMPLETE BLOOD COUNT 17867 MPV 11.4 fL 1 Unknown COMPLETE BLOOD COUNT 11276 CINTHYA % 50.4 % 1 Unknown COMPLETE BLOOD COUNT 49755 LY % 35.5 % 1 Unknown COMPLETE BLOOD COUNT 03693 MON % 10.2 % 1 Unknown COMPLETE BLOOD COUNT 74488 EOS % 3.3 % 1 Unknown COMPLETE BLOOD COUNT 42261 BASO % 0.6 % 1 Unknown COMPLETE BLOOD COUNT 97000 RDW 13.7 % 1 Unknown COMPLETE BLOOD COUNT 60133 ABS CINTHYA 3.23 10e9/L 011 Unknown COMPLETE BLOOD COUNT 64361 ABS LYMPH 2.27 10e9/L 011 Unknown COMPLETE BLOOD COUNT 41397 ABS MONO 0.65 10e9/L 011 Unknown COMPLETE BLOOD COUNT 67220 ABS EOS 0.21 10e9/L 011 Unknown COMPLETE BLOOD COUNT 99044 ABS BASO 0.04 10e9/L 011 Unknown COMPLETE BLOOD COUNT 37705 RDW-SD 45.3 fL 1 Unknown GFR CALC 1807072 GFR AA >60 ML/MIN 07/06/2010 Unknown GFR CALC [id number] GFR NON-AA 53.0L ML/MIN 07/06/2010 Unkno wn FREE T4 59402 FREE T4 1.20 NG/DL 07/06/2010 Unknown COMPREHENSIVE METABOLIC 18068 AST 17 U/L 2010 Unknown COMPREHENSIVE METABOLIC 32919 ALT 9 IU/L 2010 Unknown COMPREHENSIVE METABOLIC 03273 BUN 16 MG/DL 2010 Unknown COMPREHENSIVE METABOLIC 14008 ALBUMIN 4.0 GM/DL 2010 Unknown COMPREHENSIVE METABOLIC 34395 CHLORIDE 108 MMOL/L 07/06 Unknown COMPREHENSIVE METABOLIC 00034 BILI TOT 0.5 MG/DL 2010 Unknown COMPREHENSIVE METABOLIC 16954 ALK PHOS 76 U/L 2010 Unknown COMPREHENSIVE METABOLIC 02091 SODIUM 139 MMOL/L 07/06 Unknown COMPREHENSIVE METABOLIC 49737 CREATININE 1.02 MG/DL 04/2010 Unknown COMPREHENSIVE METABOLIC 97198 CALCIUM 9.2 MG/DL 2010 Unknown COMPREHENSIVE METABOLIC 34881 POTASSIUM 4.5 MMOL/L 07/06 Unknown COMPREHENSIVE METABOLIC 02317 PROT TOT 6.1 GM/DL 2010 Unknown COMPREHENSIVE METABOLIC 96061 Glucose 93 MG/DL 2010 Unknown COMPREHENSIVE METABOLIC 28044 BICARB 26 MMOL/L 2010 Unknown COMPREHENSIVE METABOLIC 83209 ANION GAP 5 MEQ/L 2010 Unknown LIPID GROUP 76003 HDL TEST 46 MG/DL 07/06/2010 Unknown LIPID GROUP 35353 TRIG 102 MG/DL 07/06/2010 Unknown LIPID GROUP 93391 TEST LDL 88 MG/DL 07/06/2010 Unknown LIPID GROUP 68541 CHOL 154 MG/DL 07/06/2010 Unknown LIPID GROUP 41680 RCHOL/HDL 3.35 RATIO 07/06/2010 Unknow n Procedures Procedure Codes Date ROUTINE VENIPUNCTURE CPT-4: 71774 03/13/2019 ASSAY THYROID STIM HORMONE CPT-4: 20078 03/13/2019 COMPLETE CBC W/AUTO DIFF WBC CPT-4: 85002 03/13/2019 COMPREHEN METABOLIC PANEL CPT-4: 91341 03/13/2019 ROUTINE VENIPUNCTURE CPT-4: 11784 01/23/2019 LIPID PANEL CPT-4: 31445 01/23/2019 FLU VACC PRSV FREE INC ANTIG 65 AND OLDER CPT-4: 21918 12/26/2018 FLU VACC PRSV FREE INC ANTIG 65 AND OLDER CPT-4: 13313 12/26/2018 ADMIN INFLUENZA VIRUS VAC CPT-4: G0008 12/26/2018 COMPREHEN METABOLIC PANEL CPT-4: 11711 12/15/2018 ROUTINE VENIPUNCTURE CPT-4: 51567 12/15/2018 ROUTINE VENIPUNCTURE CPT-4: 84062 08/14/2018 ASSAY THYROID STIM HORMONE CPT-4: 16447 08/14/2018 COMPREHEN METABOLIC PANEL CPT-4: 48382 08/14/2018 COMPLETE CBC W/AUTO DIFF WBC CPT-4: 79849 08/14/2018 URINALYSIS NONAUTO W/O SCOPE CPT-4: 73275 05/10/2018 URINE CULTURE/ COLONY COUNT CPT-4: 27378 05/10/2018 URINE CULTURE/ COLONY COUNT CPT-4: 01535 12/06/2017 ROUTINE VENIPUNCTURE CPT-4: 34854 11/30/2017 ASSAY OF FREE THYROXINE CPT-4: 34235 11/30/2017 ASSAY THYROID STIM HORMONE CPT-4: 23347 11/30/2017 COMPLETE CBC W/AUTO DIFF WBC CPT-4: 93405 11/30/2017 METABOLIC PANEL TOTAL CA CPT-4: 70180 11/30/2017 FLU VACC PRSV FREE INC ANTIG 65 AND OLDER CPT-4: 83029 11/22/2017 ASSAY, GLUCOSE, BLOOD QUANT CPT-4: 80731 11/22/2017 ADMIN INFLUENZA VIRUS VAC CPT-4: G0008 11/22/2017 ROUTINE VENIPUNCTURE CPT-4: 61270 09/27/2017 COMPREHEN METABOLIC PANEL CPT-4: 82062 09/27/2017 COMPLETE CBC W/AUTO DIFF WBC CPT-4: 51544 09/27/2017 A1C HPLC CPT-4: 78272 09/27/2017 ASSAY OF TROPONIN QUANT CPT-4: 65072 09/27/2017 LIPID PANEL CPT-4: 17105 09/27/2017 THER/PROPH/DIAG INJ SC/IM CPT-4: 66688 05/30/2017 TRIAMCINOLONE ACET INJ NOS CPT-4: J3301 05/30/2017 URINALYSIS NONAUTO W/O SCOPE CPT-4: 66902 04/18/2017 URINE CULTURE/ COLONY COUNT CPT-4: 30775 04/18/2017 FLU VACC PRSV FREE INC ANTIG 65 AND OLDER CPT-4: 90692 12/10/2016 ADMIN INFLUENZA VIRUS VAC CPT-4: G0008 12/10/2016 ROUTINE VENIPUNCTURE CPT-4: 40253 11/01/2016 COMPREHEN METABOLIC PANEL CPT-4: 98318 11/01/2016 COMPLETE CBC W/AUTO DIFF WBC CPT-4: 51257 11/01/2016 LIPID PANEL CPT-4: 14756 11/01/2016 A1C HPLC CPT-4: 44054 11/01/2016 ASSAY THYROID STIM HORMONE CPT-4: 39275 11/01/2016 ROUTINE VENIPUNCTURE CPT-4: 31543 05/13/2016 ASSAY THYROID STIM HORMONE CPT-4: 30312 05/13/2016 COMPREHEN METABOLIC PANEL CPT-4: 90331 05/13/2016 COMPLETE CBC W/AUTO DIFF WBC CPT-4: 33191 05/13/2016 A1C HPLC CPT-4: 06919 05/13/2016 FLU VACC PRSV FREE INC ANTIG 65 AND OLDER CPT-4: 27103 12/12/2015 ADMIN INFLUENZA VIRUS VAC CPT-4: G0008 12/12/2015 ROUTINE VENIPUNCTURE CPT-4: 44923 11/25/2015 ASSAY OF FREE THYROXINE CPT-4: 24642 11/25/2015 ASSAY THYROID STIM HORMONE CPT-4: 45246 11/25/2015 COMPREHEN METABOLIC PANEL CPT-4: 37502 11/25/2015 COMPLETE CBC W/AUTO DIFF WBC CPT-4: 36302 11/25/2015 LIPID PANEL CPT-4: 41091 11/25/2015 A1C HPLC CPT-4: 22842 11/25/2015 URINALYSIS NONAUTO W/O SCOPE CPT-4: 47856 05/21/2015 ROUTINE VENIPUNCTURE CPT-4: 51895 02/19/2015 METABOLIC PANEL TOTAL CA CPT-4: 09748 02/19/2015 PRESCRIP TRANSMIT VIA ERX SY CPT-4: G8553 02/19/2015 FLU VACC PRSV FREE INC ANTIG 65 AND OLDER CPT-4: 80915 12/20/2014 ADMIN INFLUENZA VIRUS VAC CPT-4: G0008 12/20/2014 URINALYSIS NONAUTO W/O SCOPE CPT-4: 53899 11/19/2014 URINE CULTURE/ COLONY COUNT CPT-4: 83169 11/19/2014 ROUTINE VENIPUNCTURE CPT-4: 59164 11/14/2014 ASSAY OF FREE THYROXINE CPT-4: 56078 11/14/2014 ASSAY THYROID STIM HORMONE CPT-4: 57126 11/14/2014 COMPREHEN METABOLIC PANEL CPT-4: 50544 11/14/2014 COMPLETE CBC W/AUTO DIFF WBC CPT-4: 63454 11/14/2014 LIPID PANEL CPT-4: 25248 11/14/2014 A1C HPLC CPT-4: 65350 11/14/2014 CERUM REMOVAL CPT-4: 43790 09/27/2014 PRESCRIP TRANSMIT VIA ERX SY CPT-4: G8553 07/11/2014 FLUZONE, 5ML (Medicare) CPT-4: Q2038 12/21/2013 ADMIN INFLUENZA VIRUS VAC CPT-4: G0008 12/21/2013 PRESCRIP TRANSMIT VIA ERX SY CPT-4: G8553 10/17/2013 PRESCRIP TRANSMIT VIA ERX SY CPT-4: G8553 09/24/2013 PRESCRIP TRANSMIT VIA ERX SY CPT-4: G8553 05/31/2013 ROUTINE VENIPUNCTURE CPT-4: 49816 03/28/2013 ASSAY OF FREE THYROXINE CPT-4: 77141 03/28/2013 ASSAY THYROID STIM HORMONE CPT-4: 74494 03/28/2013 COMPREHEN METABOLIC PANEL CPT-4: 67283 03/28/2013 COMPLETE CBC W/AUTO DIFF WBC CPT-4: 77871 03/28/2013 LIPID PANEL CPT-4: 15881 03/28/2013 A1C HPLC CPT-4: 12677 03/28/2013 VITAMIN B 12 FOLIC ACID CPT-4: 18022|02408 03/28/2013 PRESCRIP TRANSMIT VIA ERX SY CPT-4: G8553 03/26/2013 PRESCRIP TRANSMIT VIA ERX SY CPT-4: G8553 12/19/2012 FLUZONE, 5ML (Medicare) CPT-4: Q2038 11/27/2012 ADMIN INFLUENZA VIRUS VAC CPT-4: G0008 11/27/2012 PRESCRIP TRANSMIT VIA ERX SY CPT-4: G8553 10/04/2012 PRESCRIP TRANSMIT VIA ERX SY CPT-4: G8553 07/14/2012 ROUTINE VENIPUNCTURE CPT-4: 11691 02/23/2012 ASSAY OF FREE THYROXINE CPT-4: 64651 02/23/2012 ASSAY THYROID STIM HORMONE CPT-4: 35727 02/23/2012 COMPREHEN METABOLIC PANEL CPT-4: 56690 02/23/2012 COMPLETE CBC W/AUTO DIFF WBC CPT-4: 68624 02/23/2012 LIPID PANEL CPT-4: 58841 02/23/2012 A1C GLYCOSYLATED HEMOGLOBIN TEST CPT-4: 13176 012 CERUM REMOVAL CPT-4: 68893 02/22/2012 PRESCRIP TRANSMIT VIA ERX SY CPT-4: G8553 02/22/2012 PRESCRIP TRANSMIT VIA ERX SY CPT-4: G8553 12/15/2011 FLUZONE, 5ML (Medicare) CPT-4: Q2038 12/02/2011 ADMIN INFLUENZA VIRUS VAC CPT-4: G0008 12/02/2011 ASSAY, GLUCOSE, BLOOD QUANT CPT-4: 67985 09/21/2011 URINALYSIS NONAUTO W/O SCOPE CPT-4: 54763 09/16/2011 URINE CULTURE/ COLONY COUNT CPT-4: 10400 09/16/2011 ROUTINE VENIPUNCTURE CPT-4: 20849 09/15/2011 ASSAY OF FREE THYROXINE CPT-4: 33988 09/15/2011 ASSAY THYROID STIM HORMONE CPT-4: 94720 09/15/2011 COMPREHEN METABOLIC PANEL CPT-4: 48972 09/15/2011 COMPLETE CBC W/AUTO DIFF WBC CPT-4: 62523 09/15/2011 LIPID PANEL CPT-4: 53542 09/15/2011 ASSAY OF INSULIN CPT-4: 71266 09/15/2011 A1C GLYCOSYLATED HEMOGLOBIN TEST CPT-4: 06095 012 DRAIN/INJECT JOINT/BURSA CPT-4: 93333 08/16/2011 METHYLPREDNISOLONE 40 MG INJ CPT-4: J1030 08/16/2011 TRIAMCINOLONE ACET INJ NOS CPT-4: J3301 08/16/2011 PRESCRIP TRANSMIT VIA ERX SY CPT-4: G8553 08/03/2011 PRESCRIP TRANSMIT VIA ERX SY CPT-4: G8553 07/26/2011 METHYLPREDNISOLONE 40 MG INJ CPT-4: J1030 06/28/2011 DRAIN/INJECT JOINT/BURSA CPT-4: 33903 06/28/2011 TRIAMCINOLONE ACET INJ NOS CPT-4: J3301 06/28/2011 PRESCRIP TRANSMIT VIA ERX SY CPT-4: G8553 06/28/2011 ROUTINE VENIPUNCTURE CPT-4: 32220 04/01/2011 ASSAY OF FREE THYROXINE CPT-4: 04842 04/01/2011 ASSAY THYROID STIM HORMONE CPT-4: 11712 04/01/2011 COMPREHEN METABOLIC PANEL CPT-4: 95749 04/01/2011 COMPLETE CBC W/AUTO DIFF WBC CPT-4: 85135 04/01/2011 LIPID PANEL CPT-4: 53988 04/01/2011 PRESCRIP TRANSMIT VIA ERX SY CPT-4: G8553 03/31/2011 CERUM REMOVAL CPT-4: 23368 02/11/2011 PRESCRIP TRANSMIT VIA ERX SY CPT-4: G8553 02/11/2011 FLUZONE, 5ML (Medicare) CPT-4: Q2038 12/09/2010 ADMIN INFLUENZA VIRUS VAC CPT-4: G0008 12/09/2010 PRESCRIP TRANSMIT VIA ERX SY CPT-4: G8553 10/15/2010 URINALYSIS NONAUTO W/O SCOPE CPT-4: 64513 09/29/2010 URINE CULTURE/ COLONY COUNT CPT-4: 88252 09/29/2010 CUR TOBACCO NON-USER CPT-4: G8457 09/29/2010 ROUTINE VENIPUNCTURE CPT-4: 90570 07/06/2010 COMPLETE CBC W/AUTO DIFF WBC CPT-4: 20276 07/06/2010 COMPREHEN METABOLIC PANEL CPT-4: 93086 07/06/2010 LIPID PANEL CPT-4: 63484 07/06/2010 ASSAY THYROID STIM HORMONE CPT-4: 97377 07/06/2010 ASSAY OF FREE THYROXINE CPT-4: 78414 07/06/2010 PRESCRIP TRANSMIT VIA ERX SY CPT-4: G8553 07/02/2010 INJ TRIGGER POINT 1/2 MUSCL CPT-4: 60254 04/06/2010 TRIAMCINOLONE ACET INJ NOS CPT-4: J3301 04/06/2010 METHYLPREDNISOLONE 40 MG INJ CPT-4: J1030 04/06/2010 THER/PROPH/DIAG INJ SC/IM CPT-4: 51035 04/01/2010 KETOROLAC TROMETHAMINE INJ CPT-4: J1885 04/01/2010 PRESCRIP TRANSMIT VIA ERX SY CPT-4: G8553 01/22/2010 FLU VACCINE 3 YRS & > IM UP 64 CPT-4: 53449 0 ADMIN INFLUENZA VIRUS VAC CPT-4: G0008 12/10/2009 URINALYSIS NONAUTO W/O SCOPE CPT-4: 89072 12/02/2009 URINE CULTURE/ COLONY COUNT CPT-4: 10119 12/02/2009 PRESCRIP TRANSMIT VIA ERX SY CPT-4: G8553 12/02/2009 THER/PROPH/DIAG INJ SC/IM CPT-4: 71312 09/10/2009 VITAMIN B12 INJECTION CPT-4: J3420 09/10/2009 THER/PROPH/DIAG INJ SC/IM CPT-4: 21641 08/11/2009 VITAMIN B12 INJECTION CPT-4: J3420 08/11/2009 ROUTINE VENIPUNCTURE CPT-4: 70954 06/10/2009 Vital Signs Date Vital 03/20/2019 Blood [...] 1: 142/60 Code: 8480-6 BMI: 38.2 Code: 51279-0 Heart Rate 1: 48 bpm Height: 5'2" Respiratory Rate: 20 bpm SpO2: 98% Tempera ture: 36.7 (C) / 98.1 (F) Weight: 212 lbs 01/10/2018 Blood Pressure 1: 142/64 Code: 8480-6 BMI: 38.5 Code: 01359-5 Heart Rate 1: 52 bpm Height: 5'2" Respiratory Rate: 22 bpm SpO2: 96% Tempera ture: 36.1 (C) / 96.9 (F) Weight: 214 lbs 12/06/2017 Blood Pressure 1: 124/80 Code: 8480-6 BMI: 38.3 Code: 13610-9 Heart Rate 1: 68 bpm Height: 5'2" Respiratory Rate: 20 bpm Temperature: 36 .3 (C) / 97.4 (F) Weight: 213 lbs 11/22/2017 Blood Pressure 1: 132/78 Code: 8480-6 BMI: 37.6 Code: 99421-2 Heart Rate 1: 68 bpm Height: 5'2" Respiratory Rate: 20 bpm SpO2: 97% Tempera ture: 36.8 (C) / 98.2 (F) Weight: 209 lbs 10/20/2017 Blood Pressure 1: 150/76 Code: 8480-6 BMI: 38.5 Code: 25926-9 Heart Rate 1: 64 bpm Height: 5'2" Respiratory Rate: 20 bpm SpO2: 97% Tempera ture: 36.2 (C) / 97.2 (F) Weight: 214 lbs 09/27/2017 Blood Pressure 1: 122/74 Code: 8480-6 BMI: 38.2 Code: 01411-8 Heart Rate 1: 64 bpm Height: 5'2" Respiratory Rate: 18 bpm SpO2: 96% Tempera ture: 35.8 (C) / 96.4 (F) Weight: 212 lbs 08/16/2017 Blood Pressure 1: 124/78 Code: 8480-6 BMI: 37.8 Code: 83301-0 Heart Rate 1: 76 bpm Height: 5'2" Respiratory Rate: 20 bpm Temperature: 36 .8 (C) / 98.3 (F) Weight: 210 lbs 07/07/2017 Blood Pressure 1: 136/70 Code: 8480-6 BMI: 38.0 Code: 50503-3 Heart Rate 1: 68 bpm Height: 5'2" Respiratory Rate: 20 bpm SpO2: 97% Tempera ture: 36.8 (C) / 98.2 (F) Weight: 211 lbs 05/30/2017 Blood Pressure 1: 140/65 Code: 8480-6 Heart Rate 1: 75 bpm Respiratory Rate: 24 bpm SpO2: 95% Temperature: 37.0 (C) / 98.6 (F) We ight: 211 lbs 04/18/2017 Blood Pressure 1: 154/70 Code: 8480-6 BMI: 37.6 Code: 22931-1 Heart Rate 1: 76 bpm Height: 5'2" Respiratory Rate: 20 bpm SpO2: 98% Tempera ture: 36.9 (C) / 98.5 (F) Weight: 209 lbs 10/25/2016 Blood Pressure 1: 156/70 Code: 8480-6 BMI: 37.1 Code: 81587-7 Heart Rate 1: 72 bpm Height: 5'2" Respiratory Rate: 20 bpm SpO2: 97% Tempera ture: 37.0 (C) / 98.6 (F) Weight: 206 lbs 09/20/2016 Blood Pressure 1: 152/78 Code: 8480-6 BMI: 36.8 Code: 79052-2 Heart Rate 1: 78 bpm Height: 5'2" Respiratory Rate: 20 bpm SpO2: 98% Tempera ture: 36.1 (C) / 97.0 (F) Weight: 204 lbs 05/12/2016 Blood Pressure 1: 142/70 Code: 8480-6 BMI: 36.9 Code: 13082-5 Heart Rate 1: 64 bpm Height: 5'2" [...] 1: 122/64 Code: 8480-6 BMI: 39.1 Code: 75028-1 Heart Rate 1: 76 bpm Height: 5'2" Respiratory Rate: 20 bpm Temperature: 36 .8 (C) / 98.2 (F) Weight: 217 lbs 05/21/2015 Blood Pressure 1: 144/70 Code: 8480-6 BMI: 39.4 Code: 16144-9 Heart Rate 1: 76 bpm Height: 5'2" Respiratory Rate: 20 bpm Temperature: 36 .6 (C) / 97.9 (F) Weight: 219 lbs 02/19/2015 Blood Pressure 1: 152/60 Code: 8480-6 BMI: 39.6 Code: 51563-4 Heart Rate 1: 84 bpm Height: 5'2" Respiratory Rate: 20 bpm Temperature: 37 .0 (C) / 98.6 (F) Weight: 220 lbs 11/13/2014 Blood Pressure 1: 146/76 Code: 8480-6 BMI: 39.8 Code: 55304-6 Heart Rate 1: 88 bpm Height: 5'2" Respiratory Rate: 20 bpm Temperature: 37 .0 (C) / 98.6 (F) Weight: 221 lbs 09/27/2014 Blood Pressure 1: 132/70 Code: 8480-6 BMI: 39.1 Code: 32896-2 Heart Rate 1: 88 bpm Height: 5'2" Respiratory Rate: 20 bpm Temperature: 36 .4 (C) / 97.6 (F) Weight: 217 lbs 07/11/2014 Blood Pressure 1: 132/66 Code: 8480-6 BMI: 39.9 Code: 48905-1 Heart Rate 1: 72 bpm Height: 5'2" Respiratory Rate: 20 bpm Temperature: 36 .9 (C) / 98.4 (F) Weight: 218 lbs 05/23/2014 Blood Pressure 1: 136/80 Code: 8480-6 Heart Rate 1: 76 bpm Respiratory Rate: 20 bpm Temperature: 36.7 (C) / 98.0 (F) Weight: 224 lbs 03/20/2014 Blood Pressure 1: 134/78 Code: 8480-6 BMI: 39.7 Code: 14630-0 Heart Rate 1: 84 bpm Height: 5'2" Respiratory Rate: 20 bpm Temperature: 36 .7 (C) / 98.0 (F) Weight: 217 lbs 10/17/2013 Blood Pressure 1: 146/78 Code: 8480-6 BMI: 39.5 Code: 12382-7 Heart Rate 1: 82 bpm Height: 5'2" Respiratory Rate: 18 bpm Temperature: 35 .6 (C) / 96.1 (F) Weight: 216 lbs 09/24/2013 Blood Pressure 1: 134/70 Code: 8480-6 BMI: 37.9 Code: 70060-0 Heart Rate 1: 80 bpm Height: 5'3" Respiratory Rate: 20 bpm Temperature: 36 .8 (C) / 98.2 (F) Weight: 214 lbs 05/31/2013 Blood Pressure 1: 132/70 Code: 8480-6 BMI: 37.6 Code: 69125-8 Heart Rate 1: 80 bpm Height: 5'3" Respiratory Rate: 20 bpm Temperature: 36 .8 (C) / 98.3 (F) Weight: 212 lbs 03/26/2013 Blood Pressure 1: 116/74 Code: 8480-6 Heart Rate 1: 68 bpm Respiratory Rate: 20 bpm Temperature: 36.2 (C) / 97.1 (F) Weight: 212 lbs 12/19/2012 Blood Pressure 1: 132/82 Code: 8480-6 BMI: 37.4 Code: 64983-8 Heart Rate 1: 76 bpm Height: 5'3" Respiratory Rate: 20 bpm Temperature: 36 .7 (C) / 98.0 (F) Weight: 211 lbs 12/04/2012 Blood Pressure 1: 130/76 Code: 8480-6 He art Rate 1: 78 bpm 11/27/2012 Blood Pressure 1: 140/82 Code: 8480-6 BMI: 36.8 Code: 27969-5 Heart Rate 1: 66 bpm Height: 5'3" Respiratory Rate: 20 bpm Temperature: 36 .1 (C) / 96.9 (F) Weight: 208 lbs 10/04/2012 Blood Pressure 1: 138/80 Code: 8480-6 BMI: 36.4 Code: 63339-8 Heart Rate 1: 72 bpm Height: 5'4" Respiratory Rate: 20 bpm Temperature: 36 .7 (C) / 98.0 (F) Weight: 212 lbs 07/27/2012 Blood Pressure 1: 124/70 Code: 8480-6 BMI: 36.9 Code: 11672-6 Heart Rate 1: 60 bpm Height: 5'4" Temperature: 36.1 (C) / 97.0 (F) Weight: 215 lbs 07/14/2012 Blood Pressure 1: 132/86 Code: 8480-6 BMI: 36.9 Code: 52836-9 Heart Rate 1: 76 bpm Height: 5'4" Respiratory Rate: 20 bpm Temperature: 36 .8 (C) / 98.2 (F) Weight: 215 lbs 06/08/2012 Blood Pressure 1: 134/82 Code: 8480-6 BMI: 36.6 Code: 90856-3 Heart Rate 1: 72 bpm Height: 5'4" Respiratory Rate: 20 bpm Temperature: 36 .3 (C) / 97.4 (F) Weight: 213 lbs 02/22/2012 Blood Pressure 1: 142/80 Code: 8480-6 BMI: 37.1 Code: 78419-5 Heart Rate 1: 76 bpm Height: 5'4" Respiratory Rate: 20 bpm Temperature: 36 .8 (C) / 98.3 (F) Weight: 216 lbs 12/28/2011 Blood Pressure 1: 128/68 Code: 8480-6 BMI: 37.6 Code: 81864-7 Heart Rate 1: 72 bpm Height: 5'4" [...] 1: 128/78 Code: 8480-6 BMI: 38.1 Code: 87745-3 Heart Rate 1: 84 bpm Height: 5'4" Respiratory Rate: 20 bpm Temperature: 36 .9 (C) / 98.4 (F) Weight: 222 lbs 08/16/2011 Blood Pressure 1: 138/80 Code: 8480-6 BMI: 37.9 Code: 88315-7 Heart Rate 1: 74 bpm Height: 5'4" Temperature: 36.1 (C) / 97.0 (F) Weight: 221 lbs 08/03/2011 Blood Pressure 1: 126/78 Code: 8480-6 BMI: 38.4 Code: 98509-0 Heart Rate 1: 72 bpm Height: 5'4" Respiratory Rate: 20 bpm Temperature: 36 .7 (C) / 98.0 (F) Weight: 224 lbs 07/26/2011 Blood Pressure 1: 138/72 Code: 8480-6 BMI: 38.4 Code: 06231-3 Heart Rate 1: 72 bpm Height: 5'4" Respiratory Rate: 20 bpm Temperature: 36 .6 (C) / 97.9 (F) Weight: 224 lbs 06/28/2011 Blood Pressure 1: 122/78 Code: 8480-6 BMI: 38.8 Code: 26671-1 Heart Rate 1: 88 bpm Height: 5'4" Respiratory Rate: 20 bpm Temperature: 36 .6 (C) / 97.8 (F) Weight: 226 lbs 03/31/2011 Blood Pressure 1: 116/60 Code: 8480-6 BMI: 38.1 Code: 66220-2 Heart Rate 1: 92 bpm Height: 5'4" Respiratory Rate: 20 bpm Temperature: 36 .8 (C) / 98.2 (F) Weight: 222 lbs 02/11/2011 Blood Pressure 1: 118/62 Code: 8480-6 BMI: 37.9 Code: 82364-4 Heart Rate 1: 80 bpm Height: 5'4" Temperature: 36.5 (C) / 97.7 (F) Weight: 221 lbs 10/15/2010 Blood Pressure 1: 132/70 Code: 8480-6 Heart Rate 1: 84 bpm Respiratory Rate: 20 bpm Temperature: 36.7 (C) / 98.0 (F) Weight: 221 lbs 09/29/2010 Blood Pressure 1: 114/72 Code: 8480-6 BMI: 37.6 Code: 34044-7 Heart Rate 1: 76 bpm Height: 5'4" [...] 1: 120/70 Code: 8480-6 BMI: 38.3 Code: 32017-2 Heart Rate 1: 88 bpm Height: 5'5" [...] but had more that day. While at [facility] began to feel very ill and became [...] 09/27/2014 pain, limb 07/11/2014 follow up 05/23/2014 [facility] high blood pressure 03/20/2014 injection(s) 12/21/2013 flu [...] I10] Diagnosis: Palpitations[ICD10: R00.2] Vikki AMADOR CPT-4: 82622 03/20/2019 ([id number]) OFFICE/OUTPATIENT VISIT EST Diagnosis: Essential hypertension[ICD10: I10] Diagnosis: Palpitations[ICD10: R00.2] Diagnosis: Stress reaction[ICD10: F43.0] Vikki GUAMAN DO [facility] CPT-4: 88651 03/13/2019 ([id number]) NURSE/OUTPATIENT VISIT EST Diagnosis: Mixed hyperlipidemia[ICD10: E78.2] Vikki GUAMAN DO [facility] CPT-4: 48567 01/23/2019 ([id number]) NURSE/OUTPATIENT VISIT EST Diagnosis: FLU VACCINE[ICD10: Z23] Vikki BALL DO [facility] CPT-4: 69233 12/26/2018 ([id number]) NURSE/OUTPATIENT VISIT EST Diagnosis: Chronic kidney disease, stage 1[ICD10: N18.1] Vikki GUAMAN DO [facility] CPT-4: 10257 12/15/2018 ([id number]) OFFICE/OUTPATIENT VISIT EST Diagnosis: Acute serous otitis media, left ear[ICD10: H65.02] Jennifer GUAMAN DO [facility] CPT-4: 83564 11/07/2018 ([id number]) OFFICE/OUTPATIENT VISIT EST Diagnosis: Essential (primary) hypertension[ICD10: I10] Diagnosis: 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] Diagnosis: Hypoglycemia, unspecified[ICD10: E16.2] Diagnosis: Other fatigue[ICD10: R53.83] Diagnosis: Urinary tract infection, site not specified[ICD10: N39.0] Vikki GUAAMN DO [facility] CPT-4: 31278 08/14/2018 ([id number]) OFFICE/OUTPATIENT VISIT EST Diagnosis: Essential (primary) hypertension[ICD10: I10] Diagnosis: Gastro-esophageal reflux disease without esophagitis[ICD10: K21.9] Diagnosis: Urinary tract infection, site not specified[ICD10: N39.0] Vikki GUAMAN DO [facility] CPT-4: 16843 05/10/2018 ([id number]) OFFICE/OUTPATIENT VISIT EST Diagnosis: Gastro-esophageal reflux disease without esophagitis[ICD10: K21.9] Diagnosis: Epigastric pain[ICD10: R10.13] Vikki GUAMAN DO [facility] CPT-4: 28978 02/14/2018 ([id number]) OFFICE/OUTPATIENT VISIT EST Diagnosis: 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] Diagnosis: Essential (primary) hypertension[ICD10: I10] Diagnosis: Generalized anxiety disorder[ICD10: F41.1] Diagnosis: Gastro-esophageal reflux disease without esophagitis[ICD10: K21.9] Vikki GUAMAN [facility] CPT-4: 31743 01/10/2018 OFFICE/OUTPATIENT VISIT EST Diagnosis: Gastro-esophageal reflux disease without esophagitis[ICD10: K21.9] Diagnosis: Palpitations[ICD10: R00.2] Diagnosis: Urinary tract infection, site not specified[ICD10: N39.0] Diagnosis: Generalized anxiety disorder[ICD10: F41.1] Vikki GUAMAN [facility] CPT-4: 80435 12/06/2017 ([id number]) NURSE/OUTPATIENT VISIT EST Diagnosis: 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] Diagnosis: Hypoglycemia, unspecified[ICD10: E16.2] Diagnosis: Dizziness and giddiness[ICD10: R42] Diagnosis: Occlusion and stenosis of bilateral carotid arteries[ICD10: I65.23] Vikki GUAMAN [facility] CPT-4: 73233 11/30/2017 OFFICE/OUTPATIENT VISIT EST Diagnosis: Epigastric pain[ICD10: R10.13] Diagnosis: Generalized anxiety disorder[ICD10: F41.1] Diagnosis: FLU VACCINE[ICD10: Z23] Vikki CID [facility] CPT-4: 07928 11/22/2017 ([id number]) OFFICE/OUTPATIENT VISIT EST Diagnosis: Essential (primary) hypertension[ICD10: I10] Diagnosis: Hypoglycemia, unspecified[ICD10: E16.2] Diagnosis: Gastro-esophageal reflux disease without esophagitis[ICD10: K21.9] Vikki GUAMNA [facility] CPT-4: 03003 10/20/2017 ([id number]) OFFICE/OUTPATIENT VISIT EST Diagnosis: Dizziness and giddiness[ICD10: R42] Jennifer GUAMAN [facility] CPT-4: 15456 09/27/2017 ([id number]) OFFICE/OUTPATIENT VISIT EST Diagnosis: Cervicalgia[ICD10: M54.2] Diagnosis: Other spondylosis with radiculopathy, cervical region[ICD10: M47.22] Vikki GUAMAN [facility] CPT-4: 52610 08/16/2017 ([id number]) OFFICE/OUTPATIENT VISIT EST Diagnosis: Hypoglycemia, unspecified[ICD10: E16.2] Diagnosis: Other spondylosis with radiculopathy, cervical region[ICD10: M47.22] Diagnosis: Vertigo of central origin, 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] Diagnosis: 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] Vikki Deniz GUAMAN [facility] CPT-4: 40836 07/07/2017 ([id number]) OFFICE/OUTPATIENT VISIT EST Diagnosis: Benign paroxysmal vertigo, bilateral[ICD10: H81.13] Diagnosis: Otalgia, bilateral[ICD10: H92.03] Jennifer GUAMAN [facility] CPT-4: 31005 05/30/2017 ([id number]) OFFICE/OUTPATIENT VISIT EST Diagnosis: Low back pain[ICD10: M54.5] Diagnosis: Radiculopathy, lumbosacral region[ICD10: M54.17] Diagnosis: Left lower quadrant pain[ICD10: R10.32] Vikki CRISOSTOMO Alyssa CID [facility] CPT-4: 50392 04/18/2017 ([id number]) OFFICE/OUTPATIENT VISIT EST Diagnosis: FLU VACCINE[ICD10: Z23] Vikki Ciscobhavya KEARNEYVIKKI Alyssa BALL [facility] CPT-4: 40434 12/10/2016 ([id number]) OFFICE/OUTPATIENT VISIT EST Diagnosis: Mixed hyperlipidemia[ICD10: E78.2] Diagnosis: Essential (primary) hypertension[ICD10: I10] Diagnosis: 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] Diagnosis: Impaired fasting glucose[ICD10: R73.01] Diagnosis: Other fatigue[ICD10: R53.83] Vikki GUAMAN DO [facility] CPT-4: 66158 11/01/2016 ([id number]) OFFICE/OUTPATIENT VISIT EST Diagnosis: Pain in thoracic spine[ICD10: M54.6] Diagnosis: Other intervertebral disc degeneration, 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] Vikki GUAMAN DO [facility] CPT-4: 27786 10/25/2016 ([id number]) OFFICE/OUTPATIENT VISIT EST Diagnosis: Left lower quadrant pain[ICD10: R10.32] Diagnosis: Low back pain[ICD10: M54.5] Vikki CORTEZLINE Alyssa RUBI DO [facility] CPT-4: 77579 09/20/2016 ([id number]) OFFICE/OUTPATIENT VISIT EST Diagnosis: Mixed hyperlipidemia[ICD10: E78.2] Diagnosis: Essential (primary) hypertension[ICD10: I10] Diagnosis: Hypoglycemia, unspecified[ICD10: E16.2] Vikki GUAMAN [facility] CPT-4: 08804 05/13/2016 ([id number]) OFFICE/OUTPATIENT VISIT EST Diagnosis: Impaired fasting glucose[ICD10: R73.01] Diagnosis: Mastodynia[ICD10: N64.4] Diagnosis: Mixed hyperlipidemia[ICD10: E78.2] Diagnosis: Essential (primary) hypertension[ICD10: I10] Diagnosis: Other fatigue[ICD10: R53.83] Vikki Ciscofunmilayosakshi CORTEZVIKKI AlejandraSujata [facility]IZ [facility] CPT-4: 97988 05/12/2016 ([id number]) OFFICE/OUTPATIENT VISIT EST Diagnosis: Acute upper respiratory infection, unspecified[ICD10: J06.9] Yue CORTEZLINE Alyssa GUAMAN DO [facility] CPT-4: 17988 03/18/2016 ([id number]) OFFICE/OUTPATIENT VISIT EST Diagnosis: Acute mastoiditis without complications, right ear[ICD10: H70.001] Vikkiluther KEARNEYQUELINE AlejandraSujata DENIZ CHIN [facility] CPT-4: 75317 02/06/2016 ([id number]) OFFICE/OUTPATIENT VISIT EST Diagnosis: FLU VACCINE[ICD10: Z23] Vikki PIKE AlejandraSujata PALAK BALL [facility] CPT-4: 95190 12/12/2015 ([id number]) OFFICE/OUTPATIENT VISIT EST Diagnosis: Mixed hyperlipidemia[ICD10: E78.2] Diagnosis: Essential (primary) hypertension[ICD10: I10] Diagnosis: 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] Diagnosis: Impaired fasting glucose[ICD10: R73.01] Vikki GUAMAN [facility] CPT-4: 68146 11/25/2015 ([id number]) OFFICE/OUTPATIENT VISIT EST Diagnosis: Constipation, unspecified[ICD10: K59.00] Vikki GUAMAN [facility] CPT-4: 60269 08/26/2015 ([id number]) OFFICE/OUTPATIENT VISIT EST Diagnosis: Essential (primary) hypertension[ICD10: I10] Diagnosis: Mixed hyperlipidemia[ICD10: E78.2] Diagnosis: Chronic kidney disease, stage 1[ICD10: N18.1] Vikki GUAMAN [facility] CPT-4: 07859 05/21/2015 ([id number]) OFFICE/OUTPATIENT VISIT EST Diagnosis: Muscle weakness (generalized)[ICD10: M62.81] Diagnosis: Dizziness and giddiness[ICD10: R42] Diagnosis: Essential (primary) hypertension[ICD10: I10] Diagnosis: History of falling[ICD10: Z91.81] Vikki Peckfunmilayosakshi GUAMAN [facility] CPT-4: 71090 02/19/2015 ([id number]) OFFICE/OUTPATIENT VISIT EST Diagnosis: FLU VACCINE[ICD10: Z23] Vikki BALL [facility] CPT-4: 79037 12/20/2014 ([id number]) OFFICE/OUTPATIENT VISIT EST Diagnosis: Acute renal failure[ICD9: 584.9] Diagnosis: POLYURIA[ICD9: 788.42] Vikki Rees [facility] CPT-4: 99371 11/19/2014 ([id number]) OFFICE/OUTPATIENT VISIT EST Diagnosis: HYPERLIPIDEMIA NEC/NOS[ICD9: 272.4] Diagnosis: HYPERTENSION[ICD9: 401.9] Diagnosis: CAD[ICD9: 414.00] Diagnosis: Hyperglycemia[ICD9: 790.29] Diagnosis: MALAISE AND FATIGUE[ICD9: 780.79] Vikki GUAMAN DO [facility] CPT-4: 63841 11/14/2014 ([id number]) OFFICE/OUTPATIENT VISIT EST Diagnosis: MALAISE AND FATIGUE[ICD9: 780.79] Diagnosis: HYPOGLYCEMIA[ICD9: 251.2] Diagnosis: Grieving[ICD9: 309.0] Diagnosis: ABDOMINAL PAIN[ICD9: 789.00] Vikki GUAMAN DO [facility] CPT-4: 68414 11/13/2014 OFFICE/OUTPATIENT VISIT EST Diagnosis: CERUMEN IMPACTION[ICD9: 380.4] Diagnosis: EUSTACHIAN TUBE DYSFUNCTION[ICD9: 381.81] Jessenia EcheverriaShemargarito GUAMAN DO [facility] CPT-4: 52469 09/27/2014 ([id number]) OFFICE/OUTPATIENT VISIT EST Diagnosis: Leg pain[ICD9: 729.5] Diagnosis: SUPERFIC PHLEBITIS-LEG[ICD9: 451.0] Vikki GUAMAN [facility] CPT-4: 02858 07/11/2014 ([id number]) OFFICE/OUTPATIENT VISIT EST Diagnosis: Thoracic back pain[ICD9: 724.1] Diagnosis: SPASM OF MUSCLE[ICD9: 728.85] Vikki GUAMAN DO [facility] CPT-4: 42711 05/23/2014 ([id number]) OFFICE/OUTPATIENT VISIT EST Diagnosis: DIZZINESS/VERTIGO[ICD9: 780.4] Diagnosis: Benign positional vertigo[ICD9: 386.11] Diagnosis: HYPERTENSION[ICD9: 401.9] Diagnosis: Suspicious nevus[ICD9: 238.2] Vikki GUAMAN DO [facility] CPT-4: 07663 03/20/2014 ([id number]) OFFICE/OUTPATIENT VISIT EST Diagnosis: FLU VACCINE[ICD10: Z23] Vikki BALL DO [facility] CPT-4: 07770 12/21/2013 OFFICE/OUTPATIENT VISIT EST Diagnosis: SINUSITIS, ACUTE[ICD9: 461.9] Diagnosis: EUSTACHIAN TUBE DYSFUNCTION[ICD9: 381.81] Jessenia GUAMAN [facility] CPT-4: 45693 10/17/2013 ([id number]) OFFICE/OUTPATIENT VISIT EST Diagnosis: DIZZINESS/VERTIGO[ICD9: 780.4] Diagnosis: HYPERTENSION[ICD9: 401.9] Vikki PECK [facility] CPT-4: 20400 09/24/2013 ([id number]) OFFICE/OUTPATIENT VISIT EST Diagnosis: HYPERTENSION[ICD9: 401.9] Diagnosis: MALAISE AND FATIGUE[ICD9: 780.79] Diagnosis: SINUSITIS, ACUTE[ICD9: 461.9] [facility] 31712 05/31/2013 ([id number]) OFFICE/OUTPATIENT VISIT EST Diagnosis: HYPERLIPIDEMIA NEC/NOS[ICD9: 272.4] Diagnosis: HYPERTENSION[ICD9: 401.9] Diagnosis: B12 DEFIC ANEMIA NEC[ICD9: 281.1] Diagnosis: HYPOGLYCEMIA[ICD9: 251.2] Vikki PECK [facility] CPT-4: 60596 03/28/2013 OFFICE/OUTPATIENT VISIT EST Diagnosis: COUGH[ICD9: 786.2] Jessenia GUAMAN [facility] CPT-4: 49977 03/26/2013 OFFICE/OUTPATIENT VISIT EST Diagnosis: COUGH[ICD9: 786.2] Diagnosis: URI, ACUTE[ICD9: 465.9] Jessenia CID [facility] CPT-4: 90238 12/19/2012 ([id number]) OFFICE/OUTPATIENT VISIT EST Diagnosis: HYPERTENSION[ICD9: 401.9] Diagnosis: CEPHALGIA[ICD9: 784.0] Diagnosis: ANXIETY STATE NOS[ICD9: 300.00] Diagnosis: FLU VACCINE[ICD9: V04.81] [facility] 18020 11/27/2012 ([id number]) OFFICE/OUTPATIENT VISIT EST Diagnosis: DIZZINESS/VERTIGO[ICD9: 780.4] Diagnosis: SINUSITIS, ACUTE[ICD9: 461.9] Diagnosis: Benign positional vertigo[ICD9: 386.11] Vikki Ciscobhavya KEARNEY CHILANGOLUTHER AlejandraSujata [facility] CPT-4: 46121 10/04/2012 OFFICE/OUTPATIENT VISIT EST Diagnosis: OTITIS MEDIA NOS[ICD9: 382.9] Vikki Peckfunmilayosakshi CORTEZVIKKI AlejandraSujata [facility] CPT-4: 35749 07/27/2012 OFFICE/OUTPATIENT VISIT EST Diagnosis: Perforation of ear drum[ICD9: 384.20] Diagnosis: SINUSITIS, ACUTE[ICD9: 461.9] Vikki Peckbhavya VIKKI AlejandraSujata [facility] CPT-4: 38299 07/14/2012 ([id number]) OFFICE/OUTPATIENT VISIT EST Diagnosis: Mastalgia[ICD9: 611.71] Vikki Ciscobhavya VIKKI AlejandraSujata [facility] CPT-4: 71668 06/08/2012 ([id number]) OFFICE/OUTPATIENT VISIT EST Diagnosis: HYPERLIPIDEMIA NEC/NOS[ICD9: 272.4] Diagnosis: HYPERTENSION[ICD9: 401.9] Diagnosis: DIZZINESS/VERTIGO[ICD9: 780.4] Diagnosis: Hyperglycemia[ICD9: 790.29] Diagnosis: MALAISE AND FATIGUE[ICD9: 780.79] Vikkigabriel Conde AlejandraSujata [facility] CPT-4: 20735 02/23/2012 ([id number]) OFFICE/OUTPATIENT VISIT EST Diagnosis: EUSTACHIAN TUBE DYSFUNCTION[ICD9: 381.81] Diagnosis: DIZZINESS/VERTIGO[ICD9: 780.4] Diagnosis: ABDOMINAL PAIN[ICD9: 789.00] Diagnosis: GERD[ICD9: 530.81] Diagnosis: CERUMEN IMPACTION[ICD9: 380.4] Vikki Ciscobhavya PIKE Alejandra Sujata [facility] CPT-4: 51605 02/22/2012 OFFICE/OUTPATIENT VISIT EST Diagnosis: ABDOMINAL PAIN[ICD9: 789.00] Diagnosis: DYSPEPSIA[ICD9: 536.8] Vikki Shah CISCORUBI Rees [facility] CPT-4: 48993 12/28/2011 ([id number]) OFFICE/OUTPATIENT VISIT EST Diagnosis: ABDOMINAL PAIN[ICD9: 789.00] Diagnosis: DYSPEPSIA[ICD9: 536.8] Diagnosis: IBS[ICD9: 564.1] Vikki GUAMAN [facility] CPT - 4: 00908 12/15/2011 OFFICE/OUTPATIENT VISIT EST Diagnosis: DIZZINESS/VERTIGO[ICD9: 780.4] Diagnosis: HYPOGLYCEMIA[ICD9: 251.2] Vikki MARTINEZ [facility] CPT-4: 91665 09/21/2011 ([id number]) OFFICE/OUTPATIENT VISIT EST Diagnosis: URINARY TRACT INFECTION[ICD9: 599.0] Vikki GUAMAN [facility] CPT-4: 14522 09/16/2011 ([id number]) OFFICE/OUTPATIENT VISIT EST Diagnosis: HYPERLIPIDEMIA NEC/NOS[ICD9: 272.4] Diagnosis: HYPERTENSION[ICD9: 401.9] Diagnosis: MALAISE AND FATIGUE[ICD9: 780.79] Diagnosis: DIZZINESS/VERTIGO[ICD9: 780.4] Vikki GUAMAN [facility] CPT-4: 76697 09/15/2011 ([id number]) OFFICE/OUTPATIENT VISIT EST Diagnosis: DIZZINESS/VERTIGO[ICD9: 780.4] Diagnosis: MALAISE AND FATIGUE[ICD9: 780.79] Diagnosis: HYPERTENSION[ICD9: 401.9] Vikki MARTINEZ [facility] CPT-4: 62877 09/13/2011 OFFICE/OUTPATIENT VISIT EST Diagnosis: LUMB/LUMBOSAC DISC DEGEN[ICD9: 722.52] Diagnosis: Radiculopathy of leg[ICD9: 724.4] Diagnosis: 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] Diagnosis: SPINAL ENTHESOPATHY[ICD9: 720.1] Vikki GUAMAN [facility] CPT-4: 93298 08/16/2011 ([id number]) OFFICE/OUTPATIENT VISIT EST Diagnosis: PAIN, LOWER BACK[ICD9: 724.2] Diagnosis: SPASM OF MUSCLE[ICD9: 728.85] Diagnosis: SCIATICA[ICD9: 724.3] Diagnosis: Lumbar degenerative disc disease[ICD9: 722.52] Vikki GUAMAN DO [facility] CPT-4: 37952 08/03/2011 ([id number]) OFFICE/OUTPATIENT VISIT EST Diagnosis: PAIN IN THORACIC SPINE[ICD9: 724.1] Diagnosis: SPASM OF MUSCLE[ICD9: 728.85] Vikki GUAMAN DO [facility] CPT-4: 05281 07/26/2011 ([id number]) OFFICE/OUTPATIENT VISIT EST Diagnosis: PAIN, LOWER BACK[ICD9: 724.2] Diagnosis: SPASM OF MUSCLE[ICD9: 728.85] Diagnosis: Sacroiliac dysfunction[ICD9: 739.4] Diagnosis: Lumbar degenerative disc disease[ICD9: 722.52] Vikki GUAMAN DO [facility] CPT-4: 27845 06/28/2011 OFFICE/OUTPATIENT VISIT EST Diagnosis: MALAISE AND FATIGUE[ICD9: 780.79] Diagnosis: HYPOTENSION[ICD9: 458.9] Diagnosis: CAD[ICD9: 414.00] Vikki GUAMAN DO [facility] CPT-4: 83209 03/31/2011 OFFICE/OUTPATIENT VISIT EST Diagnosis: SINUSITIS, ACUTE[ICD9: 461.9] Diagnosis: PHARYNGITIS, ACUTE[ICD9: 462] Diagnosis: CERUMEN IMPACTION[ICD9: 380.4] Vikki GUAMAN DO [facility] CPT-4: 13651 02/11/2011 OFFICE/OUTPATIENT VISIT EST Diagnosis: PAIN IN THORACIC SPINE[ICD9: 724.1] Diagnosis: GERD[ICD9: 530.81] Diagnosis: DIZZINESS/VERTIGO[ICD9: 780.4] Vikki GUAMAN DO [facility] CPT-4: 47748 10/15/2010 OFFICE/OUTPATIENT VISIT EST Vikki MARTINEZ DO [facility] CPT- 4: 47213 09/29/2010 ([id number]) OFFICE/OUTPATIENT VISIT EST Vikki GUAMAN DO [facility] CPT-4: 46706 07/02/2010 ([id number]) OFFICE/OUTPATIENT VISIT, EST Diagnosis: PAIN, LOWER BACK[ICD9: 724.2] Vikki PIKE SSujata [facility] CPT-4: 56398 04/06/2010 ([id number]) OFFICE/OUTPATIENT VISIT, EST Vikki CRISOSTOMO S. [facility] CPT-4: 49717 04/01/2010 ([id number]) OFFICE/OUTPATIENT VISIT, EST Vikki CRISOSTOMO [facility] CPT-4: 93476 01/22/2010 ([id number]) OFFICE/OUTPATIENT VISIT, EST Vikki KEELINE S. [facility] CPT-4: 80444 12/02/2009 ([id number]) OFFICE/OUTPATIENT VISIT, EST Vikki CRISOSTOMO [facility]. [facility] CPT-4: 38168 10/21/2009 ([id number]) OFFICE/OUTPATIENT VISIT, EST Vikki CRISOSTOMO S. [facility] CPT-4: 56488 09/10/2009 ([id number]) OFFICE/OUTPATIENT VISIT, EST Vikki CRISOSTOMO [facility] CPT-4: 56127 08/11/2009 ([id number]) OFFICE/OUTPATIENT VISIT, EST Vikki CRISOSTOMO [facility] CPT-4: 84876 06/09/2009 Plan of Care Planned Activity Notes Codes Status Date Visit Diagnosis Plan: Essential (primary) hypertension Discussion: Improving with higher dose of metoprolol Recheck 2weeks ICD-9 : 401.9 ICD-10 : I10 03/20/2019 Visit Diagnosis Plan: Palpitations Discussion: Continu e higher dose of metoprolol ICD-9 : 785.1 ICD-10 : R00.2 03/20/2019 Appointment: [facility] [phone] [facility] 03/13/2019--moved up to 03/13/19 at 4pm (km) [place] NCELED 03/15/2019 Visit Diagnosis Plan: Essential hypertension Discussio n: Increase metoprolol to 25mg q AM and 50mg po q pM Recheck 1 week ICD-9 : 401.9 ICD-10 : I10 03/13/2019 Visit Diagnosis Plan: Palpitations Discussion: Check C BC, CMP, TSH ICD-9 : 785.1 ICD-10 : R00.2 03/13/2019 Appointment: Vikki Guaman WPtel: [address] [place] [address] BP CHECK 03/13/2019 Appointment: Vikki Guaman WPtel: [address] [place] [address] ACUTE ILLNESS 03/13/2019 Patient Education: metoprolol tartrate- [employer] [id number] https://www.[employer]/samplemd/resources/getResource/61/[email or web address] Completed 03/13/2019 Care Plan: X-RAY EXAM NECK SPINE 4/5VWS LOINC : 67211-1 Pending 03/13/2019 Care Plan: X-RAY EXAM THORAC SPINE4/>VW LOINC : 91375-5 Pending 03/13/2019 Appointment: Vikki Guaman WPtel: [address] [place] [address] LAB 01/23/2019 Appointment: Vikki Guaman WPtel: [address] [place], [place] [phone] [place] INJECTION 12/26/2018 Patient Education: INFLUENZA VACCINE [facility] Completed 12/26/2018 Appointment: Vikki Guaman WPtel: [address] [place], [place] [phone] [place] LAB 12/15/2018 Visit Diagnosis Plan: Acute [...] ICD-10 : H65.02 11/07/2018 Appointment: Jennifer Rosario [address] [place], [place] [id number] ACUTE ILLNESS 11/07/2018 Visit Diagnosis Plan: Hypoglycemia, [...] : N39.0 08/14/2018 Appointment: Vikki Guaman WPtel: [address] [place] [phone] US FOLLOW UP 08/14/2018 Visit Diagnosis Plan: [...] : I10 05/10/2018 Appointment: Vikki Guaman WPtel: [address] [place], [place] [id number] [place] FOLLOW UP 05/10/2018 Patient Education: metoprolol tartrate- [employer] [facility] [id number] https://www.[email or web address]/samplemd/resources/getResource/61/[email or web address]-23wn-90 Completed 05/10/2018 Appointment: Vikki Guaman WPtel: [address] [place], [place] [id number] [place] CANCELED 04/21/2018 Visit Diagnosis Plan: Gastro-esophageal reflux disease without esophagitis Discussion: Continue protonix and carafate Proceed with updated EGD ICD-9 : 530.81 ICD-10 : K21.9 02/14/2018 Visit Diagnosis Plan: Epigastric pain Discussion: [facility] abdomen/pelvis due to ongoing abdominal pain ICD-9 : 789.06 ICD-10 : R10.13 02/14/2018 Appointment: Vikki Guaman WPtel: [facility][note 3]1 [facility] US FOLLOW UP 02/14/2018 Care Plan: CT PELVIS W/O DYE LOINC : 361 08-9 Pending 02/14/2018 Care Plan: CT ABDOMEN W/O DYE LOINC : 36 103-0 Pending 02/14/2018 Care Plan: Referral Order SNOMED-CT : 30 [id number] Pending 02/14/2018 Visit Diagnosis Plan: Atherosclerotic he art disease of [place] coronary artery without angina pectoris Discussion: S/P [...] : F41.1 01/10/2018 Appointment: Vikki Guaman WPtel: [facility][note 3]3 [facility] US FOLLOW UP 01/10/2018 Visit Diagnosis [...] : N39.0 12/06/2017 Appointment: Vikki Guaman WPtel: [address] [place] [address] FOLLOW UP 12/06/2017 Patient Education: Patient Medication Summary Completed 12/06/2017 Appointment: Vikki Guaman WPtel: [address] [place] [address] LAB 11/30/2017 Patient Education: Patient Medication Summary [...] : R10.13 11/22/2017 Appointment: Vikki Guaman WPtel: [address] [place] [address] FOLLOW UP 11/22/2017 Patient Education: Patient Medication [...] 10/20/2017 Appointment: Vikki Guaman WPtel: [phone] ACUTE ILLNESS 10/20/2017 Patient Education: Patient Medication Summary Completed 10/20/2017 Visit Diagnosis Plan: Dizziness and giddiness Discussi on: blood work to be completed in office including cmp, cbc, troponin to rule out glucose intolerance, infection, dehydration. instructed patient that she needs to see her insole lip turner sooner than dec and patient requested we contact dr. brown's office. will have front office make appt. patient has carotid doppler annually. ICD-9 : 780.4 ICD-10 : R42 09/27/2017 Appointment: Jennifer Rosario [address] [place] [address] ACUTE ILLNESS 09/27/2017 Patient Education: Patient Medication Summary Completed 09/27/2017 Visit Diagnosis Plan: Cervicalgia Discussion: Complete course of PT since symptoms improved Continue stretching exercises Notify if symptoms return or worsen ICD-9 : 723.1 ICD-10 : M54.2 08/16/2017 Appointment: Vikki Guaman WPtel: [facility][note 3][address] FOLLOW UP 08/16/2017 Patient Education: Patient [...] E16.2 07/07/2017 Appointment: Vikki Guaman WPtel: [phone] [facility] 07/07/2017 Patient Education: Patient Medication Summary Completed 07/07/2017 Care Plan: MRI NECK SPINE W/O DYE [facility] : 48952-9 Pending 07/07/2017 Visit Diagnosis Plan: Benign paroxysmal [...] : H92.03 05/30/2017 Appointment: Jennifer Rosario [address] [place] [address] ACUTE ILLNESS 05/30/2017 Patient Education: Patient Medication [...] : R10.32 04/18/2017 Appointment: Vikki Guaman WPtel: [address] [place] [address] ACUTE ILLNESS 04/18/2017 Patient Education: Patient Medication Summary Completed 04/18/2017 Appointment: Vikki Guaman WPtel: [address] [place] [address] US INJECTION 12/10/2016 Patient Education: Patient Medication Summary Completed 12/10/2016 Appointment: Vikki Guaman WPtel: [address] [place] [phone] [place] LAB 11/01/2016 Patient Education: Patient Medication [...] : M54.6 10/25/2016 Appointment: Vikki Guaman WPtel: [address] [place] [phone] FOLLOW UP 10/25/2016 Patient Education: Patient Medication [...] : M54.5 09/20/2016 Appointment: Vikki Guaman WPtel: [address] [place] [phone] ACUTE ILLNESS 09/20/2016 Patient Education: Patient Medication Summary Completed 09/20/2016 Appointment: Vikki Guaman WPtel: [address] [place] [phone] [place] LAB 05/13/2016 Patient Education: Patient Medication [...] ICD-10 : R53.83 05/12/2016 Appointment: Vikki Guamantel: [address] [place] [address] 3/ confirmed `sl ACUTE ILLNESS 05/12/2016 Patient Education: Patient Medication Summary Completed 05/12/2016 Care Plan: MAMMOGRAM SCREENING LOINC : 2 6347-5 Pending 05/12/2016 Visit Diagnosis Plan: Acute upper respiratory infectio n, unspecified Discussion: Exam is reassuring Likely viral illness Supportive care reviewed and encouraged Follow up PRN ICD-9 : 465.9 ICD-10 : J06.9 03/18/2016 Appointment: Yue Moya [address] [place] [address] ACUTE ILLNESS 03/18/2016 Patient Education: Patient Medication Summary Completed 03/18/2016 Visit Plan: Supportive care. Rest, Fluid s, Tylenol/Motrin prn fever or bodyaches. Notify if worsening symptoms. 02/06/2016 Appointment: Vikki Guamantel: [address] [place] [address] ACUTE ILLNESS 02/06/2016 Patient Education: Patient Medication Summary Completed 02/06/2016 Appointment: Vikki Guaman WPtel: [address] [place] [address] US INJECTION 12/12/2015 Patient Education: Patient Medication Summary Completed 12/12/2015 Appointment: Vikki Guaman WPtel: [address] [place] [address] LAB 11/25/2015 Patient Education: Patient Medication Summary Completed 11/25/2015 Visit Plan: Add miralax daily Use daily probiotic and metamucil and push fluids Notify if worsens/persists 08/26/2015 Appointment: Vikki Guaman WPtel: [phone] [facility] 08/25/15 confirmed ~sl ACUTE ILLNESS 08/26/2015 Patient Education: Patient Medication Summary Completed 08/26/2015 Visit Plan: No NSAIDs Kidney function di scussed Discussed hydration Monitor lab every 4months so will check CMP, HbA1C next month 05/21/2015 Appointment: Vikki Guaman WPtel: [address] [place] [address] 05/19 confirmed ~sl ACUTE ILLNESS 05/21/2015 Patient Education: Patient Medication Summary Completed 05/21/2015 Visit Plan: Vestibular exercises Refill flonase Strict low Na diet--discussed that needs to read labels Rx for walker with chair given due to muscle weakness/unsteadiness Has carotids and abdominal aorta and legs checked in March Check Chem 7 02/19/2015 Appointment: Vikki Guaman WPtel: [address] [place] [address] 02/18/15 appt confirmed cn FOLLOW UP 02/19 Patient Education: Patient Medication Summary Completed 02/19/2015 Patient Education: Vertigo Completed 1 04/22/2014 Appointment: Vkiki Guaman WPtel: [address] [place], [place] [phone] [place] INJECTION 12/20/2014 Patient Education: Patient Medication Summary Completed 12/20/2014 Appointment: Vikki Guaman WPtel: [address] [place] [phone] [place] UA 11/19/2014 Patient Education: Patient Medication Summary Completed 11/19/2014 Referral: Edy Cheek WPtel: #1 [facility] Katerina [id number] US Referral Completed 11/18/2014 Appointment: Vikki Guaman WPtel: [address] [place] [phone] [place] LAB 11/14/2014 Patient Education: Patient Medication Summary Completed 11/14/2014 Visit Plan: Check CMP, CBC, TSH, Free T4 , B12, Lipids, HbA1C Discussed 6 small meals a day each with protein Would likely benefit from antidepressant Update colonoscopy 11/13/2014 Appointment: Vikki Guaman WPtel: [address] [place] [phone] 11/12/14 confirmed ACUTE ILLNESS 11/13/2014 Patient Education: Patient Medication Summary Completed 11/13/2014 Visit Plan: Cerumen flush with warm wate r and peroxide - good results Resume Nasonex nasal spray daily Recommended Debrox earwax removal drops 09/27/2014 Appointment: Jessenia Francis WPtel: [address] [place] [address] ACUTE ILLNESS 09/27/2014 Patient Education: Patient Medication Summary Completed 09/27/2014 Visit Plan: Continue aspirin daily Add m eloxicam for 1week [employer] Call on Tuesday07/11/2014 Appointment: Vikki Guaman WPtel: [address] [place] [address] ACUTE ILLNESS 07/11/2014 Patient Education: Patient Medication Summary Completed 07/11/2014 Visit Plan: Been using baclofen at [facility] and has helped some PT for next 2-4weeks 05/23/2014 Appointment: Vikki Guaman WPtel: [address] [place], [place] [phone] Follow Up 05/23/2014 Patient Education: Patient Medication Summary Completed 05/23/2014 Appointment: Vikki Guaman WPtel: [address] [place], [place] [phone] LAB 05/10/2014 Appointment: Vikki Guaman WPtel: [address] [place] [address] feeling better, weather - FOLLOW UP 04/07 Referral: Edy Cheek WPtel: [facility] Referral Appointment Requested 04/03/2014 Visit Plan: Continue exercise and curren t meds See surgery for removal of right arm lesion 03/20/2014 Appointment: Vikki Guaman WPtel: [address] [place] [address] FOLLOW UP 03/20/2014 Patient Education: Patient Medication Summary Completed 03/20/2014 Appointment: Vikki Guaman WPtel: [address] [place], [place] [phone] [place] INJECTION 12/21/2013 Patient Education: Patient Medication Summary Completed 12/21/2013 Appointment: Jessenia Francis WPtel: [address] [place] [address] ACUTE ILLNESS 10/17/2013 Patient Education: Patient Medication Summary Completed 10/17/2013 Visit Plan: Discussed that likely lumbar etiology for leg weakness Will change amlodopine to low dose dyazide and see if helps legs and inner ear 09/24/2013 Appointment: Vikki Guaman WPtel: [address] [place] [address] FOLLOW UP 09/24/2013 Patient Education: Patient Medication Summary Completed 09/24/2013 Visit Plan: Ceftin and continue claritin /flonase Decrease amlodopine to 2.5mg q HS until fwup with Card due to weakness 05/31/2013 Appointment: Vikki Guaman WPtel: [address] [place] [address] ACUTE ILLNESS 05/31/2013 Patient Education: Patient Medication Summary Completed 05/31/2013 Appointment: Vikki Guaman WPtel: [address] [place], [place] [phone] LAB 03/28/2013 Patient Education: Patient Medication Summary Completed 03/28/2013 Appointment: Jessenia Francis WPtel: [address] [place], [place] [phone] ACUTE ILLNESS 03/26/2013 Patient Education: Patient Medication Summary Completed 03/26/2013 Visit Plan: Supportive care. Rest, Fluid s, Tylenol prn fever or bodyaches. Notify if worsening symptoms. Ceftin 12/19/2012 Appointment: Jessenia Francis WPtel: [address] [place] [address] ACUTE ILLNESS 12/19/2012 Patient Education: Patient Medication Summary Completed 12/19/2012 Appointment: Vikki Guaman WPtel: [address] [place] [address] BP CHECK 12/04/2012 Patient Education: Patient Medication Summary Completed 12/04/2012 Appointment: Vikki Guaman WPtel: [address] [place] [address] ER Follow UP 11/27/2012 Patient Education: Patient Medication Summary Completed 11/27/2012 Visit Plan: Restart flonase BID Use mecl izine 25mg q HS Vestibular exercises Claritin 10mg q AM See ENT if doesn't resolve 10/04/2012 Appointment: Vikki Guaman WPtel: [address] [place] [address] ACUTE ILLNESS 10/04/2012 Patient Education: Patient Medication Summary Completed 10/04/2012 Visit Plan: Will continue to observe 07/27/2012 Appointment: Vikki Guaman WPtel: [address] [place] [address] FOLLOW UP 07/27/2012 Patient Education: Patient Medication [...] ear recheck. 07/14/2012 Appointment: Evelyn Santos WPtel: [address] [place] [address] ACUTE ILLNESS 07/14/2012 Patient Education: Patient Medication Summary Completed 07/14/2012 Visit Plan: Decrease caffeine intake Kristin ck Bilateral Mammogram with US of left breast 06/08/2012 Appointment: Vikki Guaman WPtel: [address] [place] [address] ACUTE ILLNESS 06/08/2012 Patient Education: Patient Medication Summary Completed 06/08/2012 Appointment: Alisia Campbell WPtel: [address] [place] [address] appt scheduled 04/06 ACUTE ILLNESS 04/10/2012 Appointment: Vikki Guaman WPtel: [address] [place], [place] [id number] LAB 02/23/2012 Patient Education: Patient Medication Summary Completed 02/23/2012 Visit Plan: Continue off carafate and se e how does Continue probiotic Add Vestibular exercises and use meclizine prn Continue Nasonex Check fasting lab including CMP, Lipids, CBC, TSH, Free T4, HbA1C 02/22/2012 Appointment: Vikki Guaman WPtel: [address] [place] [address] FOLLOW UP 02/22/2012 Patient Education: Patient Medication Summary Completed 02/22/2012 Visit Plan: Continue carafate for 4more weeks at current dose then decrease to BID for 2wks then q HS 12/28/2011 Appointment: Vikki Guaman WPtel: [address] [place], [place] [id number] FOLLOW UP 12/28/2011 Patient Education: Patient Medication Summary Completed 12/28/2011 Visit Plan: Continue omeprazole Add Juid fate 1gm po q AC Add daily probiotic 12/15/2011 Appointment: Vikki Guaman WPtel: [address] [place] [address] ACUTE ILLNESS 12/15/2011 Patient Education: Patient Medication Summary Completed 12/15/2011 Appointment: Vikki Guaman WPtel: [address] [place], [place] [id number] [place] INJECTION 12/02/2011 Patient Education: Patient Medication Summary Completed 12/02/2011 Visit Plan: Diabetic Diet Accuchecks BID alternating times Hold onglyza and Januvia for now and continue diet and exercise and weight loss and lana BAPTISTE Discussed hypoglycemia and snack of peanut butter and crackers with juice or milk 09/21/2011 Appointment: Vikki Guamantel: [address] [place] [address] WORK IN 09/21/2011 Patient Education: Patient Medication Summary Completed 09/21/2011 Appointment: Vikki Guaman WPtel: [address] [place] [address] 09/16/2011 Patient Education: Patient Medication Summary Completed 09/16/2011 Appointment: Vikki Guaman WPtel: [address] [place] [address] LAB 09/15/2011 Patient Education: Patient Medication Summary Completed 09/15/2011 Appointment: Vikki Guaman WPtel: [address] [place] [address] ACUTE ILLNESS 09/13/2011 Patient Education: Patient Medication Summary Completed 09/13/2011 Visit Plan: Injection to Right SI joint as above Pt will call in 3 days on pain Has PT starting in 2wks. 08/16/2011 Appointment: Vikki Guaman WPtel: [address] [place] [address] ACUTE ILLNESS 08/16/2011 Patient Education: Patient Medication Summary Completed 08/16/2011 Visit Plan: OMT done Start PT May need u pdated MRI if need to consider epidural Prednisone 08/03/2011 Appointment: Vikki Guaman WPtel: [address] [place] [address] OMT 08/03/2011 Patient Education: Patient Medication Summary Completed 08/03/2011 Visit Plan: Flexeril and Vimovo OMT done Daily stretches 07/26/2011 Appointment: Vikki Guaman WPtel: [address] [place], [place] [id number] ACUTE ILLNESS 07/26/2011 Patient Education: Patient Medication Summary Completed 07/26/2011 Visit Plan: OMT done Daily stretches Roque st heat or biofreeze Right SI joint injection Call in 1week Vimovo BID 06/28/2011 Appointment: Vikki Guaman WPtel: [address] [place], [place] [id number] ACUTE ILLNESS 06/28/2011 Patient Education: Patient Medication Summary Completed 06/28/2011 Appointment: Vikki Guaman WPtel: [address] [place] [id number] [place] LAB 04/01/2011 Patient Education: Patient Medication Summary Completed 04/01/2011 Visit Plan: Decrease amlodopine to 1.25m g daily Schedule with Cardiology Fasting lab in AM 03/31/2011 Appointment: Vikki Guaman WPtel: [address] [place] [address] ACUTE ILLNESS 03/31/2011 Patient Education: Patient Medication Summary Completed 03/31/2011 Visit Plan: Saline nasal flushes prn. Ty lenol/Motrin prn headache. Notify if persists/symptoms worsening. Cerumen removal from ears as above 02/11/2011 Appointment: Vikki Guaman WPtel: [address] [place] [id number] ACUTE ILLNESS 02/11/2011 Patient Education: Patient Medication Summary Completed 02/11/2011 Appointment: Vikki Guaman WPtel: [address] [place] [id number] [place] INJECTION 12/09/2010 Patient Education: Patient Medication Summary Completed 12/09/2010 Visit Plan: Continue vimovo for 1more we ek Increase Omeprazole to BID for 1mo then resume QD if stomach improved Vestibular exercises with meclizine q HS for next week 10/15/2010 Appointment: Vikki Guaman WPtel: [address] [place] [address] FOLLOW UP 10/15/2010 Patient Education: Patient Medication Summary Completed 10/15/2010 Appointment: Vikki Guaman WPtel: [address] [place] [address] ACUTE ILLNESS 09/29/2010 Patient Education: Patient Medication Summary Completed 09/29/2010 Appointment: Vikki Guaman WPtel: [address] [place] [address] LAB 07/06/2010 Patient Education: Patient Medication Summary Completed 07/06/2010 Visit Plan: Saline nasal flushes prn. Ty lenol/Motrin prn headache. Notify if persists/symptoms worsening. Add Veramyst Increase Omeprazole to 20mg po BID 07/02/2010 Appointment: Vikki Guaman WPtel: [address] [place] [address] ACUTE ILLNESS 07/02/2010 Patient Education: Patient Medication Summary Completed 07/02/2010 Appointment: Vikki Guaman WPtel: [address] [place] [address] FOLLOW UP 04/06/2010 Patient Education: Patient Medication Summary Completed 04/06/2010 Appointment: Vikki Guaman WPtel: [address] [place] [address] ACUTE ILLNESS 04/01/2010 Patient Education: Patient Medication Summary Completed 04/01/2010 Visit Plan: Nasocourt sample given. Pt. will notify if symptoms are worse on Tuesday. 01/22/2010 Appointment: Alisia Capmbell WPtel: [address] [place] [address] ACUTE ILLNESS 01/22/2010 Patient Education: Patient Medication Summary Completed 01/22/2010 Appointment: Vikki Guaman WPtel: [address] [place], [place] [id number] [place] INJECTION 12/10/2009 Patient Education: Patient Medication Summary Completed 12/10/2009 Appointment: Vikki Guaman WPtel: [address] [place] [address] FOLLOW UP 12/02/2009 Patient Education: Patient Medication Summary Completed 12/02/2009 Patient Education: Lexapro Completed 0 12/02/2009 Visit Plan: May proceed with hiatal ryan ia repair per Card. so will contact Dr. Mariscal's office to proceed with surgery Trial of Lexapro 5mg QD plus use xanax prn 10/21/2009 Appointment: Vikki Guaman WPtel: [address] [place] [address] FOLLOW UP 10/21/2009 Patient Education: Patient Medication Summary Completed 10/21/2009 Visit Plan: B12 given Cont oral B12 and iron Fwup 1mo for B12 Proceed with hiatal hernia repair once card clearance 09/10/2009 Appointment: Vikki Guaman WPtel: [address] [place] [address] FOLLOW UP 09/10/2009 Patient Education: Patient Medication Summary Completed 09/10/2009 Appointment: Vikki Guaman WPtel: [address] [place] [address] FOLLOW UP 08/11/2009 Patient Education: Patient Medication Summary Completed 08/11/2009 Appointment: Vikki Guaman WPtel: [address] [place] [address] [place] LAB 06/10/2009 Patient Education: Patient Medication Summary Completed 06/10/2009 Visit Plan: Check fasting lab in AM--CMP ,Lipids, CBC, Vit D, TSH,FreeT4, B12 06/09/2009 Appointment: Vikki Guaman WPtel: [address] [place] [address] [place] FOLLOW UP 06/09/2009 Patient Education: Patient Medication Summary Completed 06/09/2009 Referral: Edy Cheek WPtel: [address] [place] [address] [place] Referral Appointment Requested Referral: Edy Cheek WPtel: [facility] [id number] [place] Referral Initiated Instructions Comment . Supportive [...]
--- OUTSIDE RECORDS SUMMARY | 2019-04-25 20:30 | XMS REPORT | CCD ---
Author Author Evelyne Guaman D.O. 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 PP Unavailable CCM Unavailable Summary Purpose Interface Exchange Insurance Providers Payer name Policy type / Coverage type Covered green party ID Effective Begin Date Effective End Date WPS MEDICARE PART B [place] Medicare Part B [id number] 2017 Unknown Aetna [facility] Medicare Part B [id number] Unknown Family history Father Diagnosis Age At Onset Heart disease Unknown Mother Diagnosis Age At Onset Heart disease Unknown Cancer Unknown Social History Social History Element Codes Description Effective Dates Tobacco history SNOMED CT: 924013504 Never smoker 09/29/2010 Marital status Unknown Single [...] R10.13 11/22/2017 Active 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: [...] Instructions metoprolol tartrate 25 mg tablet RxNorm: 687268 1 Table t(s) Oral QAM and two tablets (50mg) in the evening 03/20/2019 06/18/2019 Active Flonase Allergy Relief 50 mcg/actuation nasal spray,suspensi on RxNorm: 3969521 2 [place] Nasal every night at bedtime 03/13/2019 03/13/2019 Inactive simvastatin 40 mg tablet RxNorm: 835480 1 Tablet(s) PO QD 01/22/2019 04/21/2019 Active omeprazole 40 mg capsule,delayed release RxNorm: 377697 1 Capsu le(s) Oral QD 01/10/2019 07/08/2019 Active Xanax 0.25 mg tablet RxNorm: 146354 TAKE 1 TABLET BY MOUTH TWIC E DAILY 01/02/2019 No Stop Date Active omeprazole 40 mg capsule,delayed release RxNorm: 509024 1 Capsu le(s) PO QD 12/11/2018 01/09/2019 Inactive metoprolol tartrate 25 mg tablet RxNorm: 981563 1 Tablet(s) PO BID 11/20/2018 03/19/2019 Inactive omeprazole 40 mg capsule,delayed release RxNorm: 546785 1 Capsu le(s) PO QD 11/13/2018 12/10/2018 Inactive Flonase Allergy Relief 50 mcg/actuation nasal spray,suspensi on RxNorm: 5067061 2 [place] NASAL QHS 11/07/2018 03/12/2019 Inactive simvastatin 40 mg tablet RxNorm: 218665 1 Tablet(s) PO QD 10/23/2018 01/20/2019 Inactive simvastatin 40 mg tablet RxNorm: 727797 1 Tablet(s) PO QD 07/24/2018 10/21/2018 Inactive omeprazole 40 mg capsule,delayed release RxNorm: 346575 1 Capsu le(s) PO QD 07/13/2018 11/09/2018 Inactive simvastatin 40 mg tablet RxNorm: 408842 1 Tablet(s) PO QD 06/13/2018 07/12/2018 Inactive omeprazole 40 mg capsule,delayed release RxNorm: 610879 1 Capsu le(s) PO QD 06/13/2018 07/12/2018 Inactive Bactrim DS 800 mg-160 mg tablet RxNorm: 528672 1 Tablet(s) PO BID 0 05/12/2018 05/18/2018 Inactive Bactrim DS 800 mg-160 mg tablet RxNorm: 933795 1 Tablet(s) PO BID 0 05/12/2018 05/11/2018 Inactive Macrobid 100 mg capsule RxNorm: 943698 1 Capsule(s) PO BID 05/11/1905/16/2018 Inactive metoprolol tartrate 25 mg tablet RxNorm: 300810 1 Tablet(s) PO BID 05/10/2018 11/05/2018 Inactive Xanax 0.25 mg tablet RxNorm: 286412 TAKE 1 TABLET BY MOUTH TWIC E DAILY 02/16/2018 01/01/2019 Inactive Xanax 0.25 mg tablet RxNorm: 078658 1 Tablet(s) PO BID 02/14/2018 Inactive Protonix 40 mg tablet,delayed release RxNorm: 339602 1 Tablet(s) PO BID for stomach--replaces omeprazole 01/10/2018 05/09/2018 Inactive Carafate 1 gram tablet RxNorm: 491980 1 Tablet(s) PO AC & HS 201705/09/2018 Inactive Xanax 0.25 mg tablet RxNorm: 246015 1 Tablet(s) PO BID 01/03/201812/2017 Inactive Bactrim DS 800 mg-160 mg tablet RxNorm: 365121 1 Tablet(s) PO BID 1 12/12/2017 Inactive Bactrim DS 800 mg-160 mg tablet RxNorm: 017540 1 Tablet(s) PO BID 1 12/07/2017 Inactive Carafate 1 gram tablet RxNorm: 956497 1 Tablet(s) PO AC & HS 201712/21/2017 Inactive Protonix 40 mg tablet,delayed release RxNorm: 075698 1 Tablet(s) PO BID for stomach--replaces omeprazole 11/22/2017 01/09/2018 Inactive Protonix 40 mg tablet,delayed release RxNorm: 625503 1 Tablet(s) PO BID for stomach--replaces omeprazole 10/20/2017 11/21/2017 Inactive fluticasone 50 mcg/actuation nasal spray,suspension RxNorm: 8935912 2 [place] NASAL QD to each nostril 07/07/2017 08/13/2018 Inactive Nasonex 50 mcg/actuation [place] RxNorm: 5311044 2 [place] NASAL 201707/07/2017 Inactive omeprazole 40 mg capsule,delayed release RxNorm: 236140 1 Capsu le(s) PO QD 04/18/2017 10/19/2017 Inactive simvastatin 40 mg tablet RxNorm: 099891 1 Tablet(s) PO QD TAKE 1 TABLET EVERY DAY 04/18/2017 04/12/2018 Inactive metoprolol tartrate 25 mg tablet RxNorm: 025088 1/2 Tablet(s) PO QD 04/18/2017 01/09/2018 Inactive simvastatin 40 mg tablet RxNorm: 209631 Tablet(s) TAKE 1 TABLET EVERY DAY 10/27/2016 04/17/2017 Inactive metoprolol tartrate 25 mg tablet RxNorm: 370611 1/2 Tablet(s) PO QD 09/20/2016 03/18/2017 Inactive Flonase 50 mcg/actuation nasal spray,suspension RxNorm: 1797 933 2 [place] NASAL BID 09/20/2016 04/17/2017 Inactive omeprazole 40 mg capsule,delayed release RxNorm: 680819 1 Capsu le(s) PO QD 09/08/2016 04/17/2017 Inactive metoprolol tartrate 25 mg tablet RxNorm: 858507 1/2 Tablet(s) PO QD 06/14/2016 09/19/2016 Inactive ciprofloxacin 0.2 % ear drops in a dropperette RxNorm: 38368 6 4 Drop(s) OTIC TID for 1 week 02/06/2016 05/11/2016 Inactive cefdinir 300 mg capsule RxNorm: 079004 2 Capsule(s) PO QD 02/06/2016 02/15/2016 Inactive omeprazole 40 mg capsule,delayed release RxNorm: 007860 TAKE 1 CAPSULE EVERY DAY 11/06/2015 09/08/2016 Inactive simvastatin 40 mg tablet RxNorm: 961804 TAKE 1 TABLET EVERY DAY 05/201510/27/2016 Inactive Flonase 50 mcg/actuation nasal spray,suspension RxNorm: 1797 933 2 [place] NASAL BID 02/19/2015 09/19/2016 Inactive cefuroxime axetil 250 mg tablet RxNorm: 176225 1 Tablet(s) PO BID 0 11/21/2014 11/20/2014 Inactive cefuroxime axetil 250 mg tablet RxNorm: 105444 1 Tablet(s) PO BID 0 11/21/2014 11/27/2014 Inactive omeprazole 40 mg capsule,delayed release RxNorm: 885618 1 Capsu le(s) PO QD 10/09/2014 01/05/2015 Inactive meloxicam 7.5 mg tablet RxNorm: 808898 1 Tablet(s) PO QD 07/11/2014 0 08/09/2014 Inactive loratadine 10 mg tablet RxNorm: 040942 1 Tablet(s) PO QAM for a llergies 10/17/2013 08/13/2018 Inactive Flonase 50 mcg/actuation nasal spray,suspension RxNorm: 8963 23 2 [place] NASAL BID 10/17/2013 02/18/2015 Inactive prednisone 20 mg tablet RxNorm: 516744 2 Tablet(s) PO BID 10/17/2013 10/21/2013 Inactive Dyazide 37.5 mg-25 mg capsule RxNorm: 537070 1 Capsule(s) PO QAM 10/16/2013 Inactive Ceftin 500 mg tablet RxNorm: 799676 1 Tablet(s) PO BID 05/31/201307/2013 Inactive Ceftin 500 mg tablet RxNorm: 135515 1 Tablet(s) PO BID 03/26/2013 Inactive simvastatin 40 mg tablet RxNorm: 758126 Tablet(s) PO TA KE ONE TABLET BY MOUTH EVERY DAY 03/26/2013 10/07/2015 Inactive metoprolol tartrate 25 mg tablet RxNorm: 993478 Tablet( s) PO TAKE ONE-HALF TABLET BY MOUTH EVERY DAY 03/26/2013 11/12/2014 Inactive Ceftin 500 mg tablet RxNorm: 648970 1 Tablet(s) PO BID 12/19/2012 Inactive loratadine 10 mg tablet RxNorm: 073178 1 Tablet(s) PO QAM for a llergies 10/04/2012 12/02/2012 Inactive omeprazole 20 mg capsule,delayed release RxNorm: 480692 Capsule(s) PO TAKE ONE CAPSULE BY MOUTH TWICE DAILY 08/09/2012 10/08/2014 Inactive omeprazole 20 mg capsule,delayed release RxNorm: 051972 1 Capsu le(s) PO BID 08/09/2012 05/09/2018 Inactive Augmentin 875 mg-125 mg tablet RxNorm: 069963 1 Tablet(s) PO Q12H 0 07/14/2012 07/23/2012 Inactive Floxin Otic Drops 1 bottle Drops RxNorm: 5 Drop(s) OTIC BID 07/20/2012 Inactive metoprolol tartrate 25 mg tablet RxNorm: 751967 Tablet( s) PO TAKE ONE-HALF TABLET BY MOUTH EVERY DAY 04/11/2012 03/25/2013 Inactive simvastatin 40 mg tablet RxNorm: 742613 Tablet(s) PO TA KE ONE TABLET BY MOUTH EVERY DAY 04/11/2012 03/25/2013 Inactive lancets RxNorm: Misc Miscellaneous USE ONE TO CH JEFFERY GLUCOSE EVERY DAY 04/04/2012 05/09/2018 Inactive Carafate 1 gram tablet RxNorm: 668904 1 Tablet(s) PO AC & HS 201111/12/2014 Inactive Flagyl 500 mg tablet RxNorm: 116152 1 Tablet(s) PO TID 12/15/2011 Inactive Carafate 1 gram tablet RxNorm: 768085 1 Tablet(s) PO AC & HS 201102/12/2012 Inactive One Touch Test strips RxNorm: Miscellaneous QD 09/21/2011 05/09/2018 Inactive one touch ultra mini test strips Protonix 40 mg Tab RxNorm: 448725 1 Tablet(s) PO QD 09/13/20112011 Inactive Protonix 40 mg Tab RxNorm: 449979 1 Tablet(s) PO QD 09/13/20112011 Inactive prednisone 20 mg Tab RxNorm: 674535 1 Tablet(s) PO BID 08/03/201106/2011 Inactive Flexeril 5 mg Tab RxNorm: 320796 1 Tablet(s) PO QHS for spasm 07/2508/24/2011 Inactive Flexeril 5 mg Tab RxNorm: 845333 1 Tablet(s) PO QHS for spasm 06/2707/25/2011 Inactive amlodipine 2.5 mg Tab RxNorm: 786288 1/2 Tablet(s) PO QD replac es 5mg dose 03/31/2011 06/27/2011 Inactive simvastatin 40 mg tablet RxNorm: 882238 1 Tablet(s) PO QD 03/31/2011 03/24/2012 Inactive metoprolol tartrate 25 mg tablet RxNorm: 362551 1/2 Tablet(s) PO QD 03/31/2011 03/24/2012 Inactive omeprazole 20 mg capsule,delayed release RxNorm: 484898 1 Capsu le(s) PO BID 03/31/2011 09/12/2011 Inactive cefdinir 300 mg Cap RxNorm: 938767 2 Capsule(s) PO QD 02/11/201102/04 Inactive simvastatin 40 mg Tab RxNorm: 339163 1 Tablet(s) PO QD 02/01/2011 Inactive metoprolol tartrate 25 mg Tab RxNorm: 748365 1/2 Tablet(s) PO QD 03/30/2011 Inactive metoprolol tartrate 25 mg Tab RxNorm: 148730 1/2 Tablet(s) PO QD 12/28/2010 Inactive meclizine 25 mg Tab RxNorm: 4390129 1 Tablet(s) PO QHS 10/15/201011/2010 Inactive for dizziness Ceftin 500 mg Tab RxNorm: 936072 1 Tablet(s) PO BID 07/02/20102010 Inactive omeprazole 20 mg Cap, Delayed Release RxNorm: 070219 1 Capsule( s) PO BID 07/02/2010 12/28/2010 Inactive simvastatin 40 mg Tab RxNorm: 368377 1 Tablet(s) PO QD 06/30/201007/2018 Inactive simvastatin 40 mg Tab RxNorm: 510292 1 Tablet(s) PO QD 06/30/2010 Inactive simvastatin 40 mg Tab RxNorm: 300122 1 Tablet(s) PO QD 02/25/2010 Inactive Tessalon Perles 100 mg Cap RxNorm: 157466 1 Capsule(s) PO Q6-8H 01/28/2010 Inactive cefdinir 300 mg Cap RxNorm: 698616 1 Capsule(s) PO BID 01/22/2010 Inactive Lexapro 10 mg Tab RxNorm: 569824 1 Tablet(s) PO QD 12/02/2009 010 Inactive Cipro 250 mg Tab RxNorm: 213247 1 Tablet(s) PO BID 12/02/2009 010 Inactive Wellbutrin XL 150 mg 24 hr Tab RxNorm: 375725 1 Tablet(s) PO QAM 08/07/2009 Inactive Fish Oil 1,000 mg Cap RxNorm: 1 Capsule(s) PO QD No Start Date Active Tylenol Extra Strength 500 mg tablet RxNorm: 015127 1/2 Tablet( s) PO as needed No Start Date Active nitroglycerin 0.4 mg sublingual tablet RxNorm: 747249 Tablet(s) SL as needed No Start Date Active Calcium with Vitamin D 600 mg (1,500 mg)-400 unit tablet RxN orm: 128909 1 Tablet(s) PO QD No Start Date Active Multivitamin & Mineral Formula Tab RxNorm: 1 Tablet(s) PO QD No St art Date Active vitamin B complex capsule RxNorm: 1 Capsule(s) PO QD No Start Date Active Aspirin 81 mg Tab RxNorm: 624775 1 Tablet(s) PO QD No Start Date Active isosorbide mononitrate ER 30 mg tablet,extended release 24 h r RxNorm: 937630 1 Tablet(s) PO QHS No Start Date Active Vitamin D 1,000 unit Cap RxNorm: 371504 1 Capsule(s) PO QD No Start D ate Active Co Q-10 oral RxNorm: 37382 oral No Start Date Active metoprolol tartrate 25 mg Tab RxNorm: 497281 1/2 Tablet(s) PO QD No Start Date 12/27/2010 Inactive Nasonex 50 mcg/actuation [place] RxNorm: 8757679 2 [place] NASAL No Sta rt Date 07/06/2017 Inactive Vitamin B12 1000mcg Tablet RxNorm: 1 Tablet(s) PO QD No Start Date 11/12/2014 Inactive amlodipine 5 mg Tab RxNorm: 429070 1 Tablet(s) PO QD No Start Date Inactive simvastatin 40 mg tablet RxNorm: 755523 1 Tablet(s) PO QD No Start Date 06/12/2018 Inactive omeprazole 20 mg capsule,delayed release RxNorm: 827880 1 Capsu le(s) PO BID No Start Date 08/08/2012 Inactive omeprazole 40 mg capsule,delayed release RxNorm: 644523 1 Capsu le(s) PO QD No Start Date 06/12/2018 Inactive Nexium 40 mg Cap RxNorm: 134057 1 Capsule(s) PO QD No Start Date 01/05 Inactive Stool Softener 100 mg Tab RxNorm: 2536602 2 Tablet(s) PO BID No Sta rt Date 03/30/2011 Inactive Calcium with Vitamin D 600 mg (1,500 mg)-400 unit Tab RxNorm : 201091 1 Tablet(s) PO QD No Start Date 11/12/2014 Inactive iron 325 mg (65 mg iron) Tab RxNorm: 373614 1 Tablet(s) PO QD No St art Date 11/12/2014 Inactive Flonase 50 mcg/actuation Nasal [place] RxNorm: 258533 2 [place] DEMOND AL BID No Start Date 10/16/2013 Inactive fluticasone 50 mcg/actuation nasal spray,suspension RxNorm: 2242573 2 [place] NASAL QD to each nostril No Start Date 07/06/2017 Inactive Nasonex 50 mcg/actuation [place] RxNorm: 3781284 2 [place] NASAL QD No Start Date 07/06/2017 Inactive hydralazine 50 mg tablet RxNorm: 877854 1 Tablet(s) PO as needed for BP over 160/90 No Start Date 11/21/2017 Inactive Vimovo 500 mg-20 mg 12 hr Tab RxNorm: 842569 1 Tablet(s) PO BID No Start Date 02/10/2011 Inactive Tylenol PM 25 mg-500 mg/15 mL Oral Soln RxNorm: 9237958 1 PO QPM No Start Date 11/12/2014 Inactive Iron (Ferrous Sulfate) Oral RxNorm: Oral No Start Date 03/30/19 12 Inactive Reglan 10 mg Tab RxNorm: 199255 1 Tablet(s) PO TID before meals No Start Date 02/10/2011 Inactive Xanax 1 mg Tab RxNorm: 497615 1/2 Tablet(s) PO QD No Start Date 11/21 Inactive amlodipine 10 mg tablet RxNorm: 841114 1 Tablet(s) PO QD No Start D ate 09/23/2013 Inactive Iron (dried) Oral RxNorm: Oral No Start Date 03/30/2011 Inactiv e metoprolol tartrate 50 mg tablet RxNorm: 891973 1 Tablet(s) PO BID No Start Date 02/13/2018 Inactive Xanax 0.25 mg tablet RxNorm: 759907 1 Tablet(s) PO BID No Start Date 01/02/2018 Inactive lancets RxNorm: Miscellaneous check blood sugar at least once daily No Start Date 04/03/2012 Inactive simvastatin 40 mg Tab RxNorm: 261495 1 Tablet(s) PO QD No Start Date 02/24/2010 Inactive isosorbide mononitrate ER 30 mg tablet,extended release 24 h r RxNorm: 161376 1 Tablet(s) PO QHS No Start Date 08/13/2018 Inactive amlodipine 2.5 mg tablet RxNorm: 274985 1 Tablet(s) PO QD No Start Date 09/23/2013 Inactive sucralfate 1 gram tablet RxNorm: 412430 1 Tablet(s) PO QID No Start Date 05/09/2018 Inactive Fish Oil Oral RxNorm: Oral No Start Date 03/31/2011 Inactive Multiple Vitamin Oral RxNorm: Oral No Start Date 03/31/2011 Franny ctive metoprolol tartrate 25 mg tablet RxNorm: 638303 1/2 Tablet(s) P O QD No Start Date 06/13/2016 Inactive metoprolol tartrate 50 mg tablet RxNorm: 287378 1/2 Tablet(s) P O BID No Start Date 05/09/2018 Inactive Flonase Allergy Relief 50 mcg/actuation nasal spray,suspensi on RxNorm: 8655128 2 [place] NASAL QHS No Start Date 11/06/2018 Inactive [...] [facility] Location COMPLETE BLOOD COUNT [id number] WBC 7.1 10e9/L 03/13/19 20 Unknown COMPLETE BLOOD COUNT [id number] RBC 4.16 10e12/L 2019 Unknown COMPLETE BLOOD COUNT [id number] HEMOGLOBIN 12.4 g/dL 03/13/19 20 Unknown COMPLETE BLOOD COUNT [id number] HEMATOCRIT 39.3 % 03/13/19 20 Unknown COMPLETE BLOOD COUNT [id number] MCV 94.5 fL 0 Unknown COMPLETE BLOOD COUNT [id number] MCH 29.8 pg 0 Unknown COMPLETE BLOOD COUNT [id number] MCHC 31.6 g/dL 0 Unknown COMPLETE BLOOD COUNT [id number] PLATELET COUNT 161 10e9/L 09/2019 Unknown COMPLETE BLOOD COUNT [id number] Mean Plt Volume 10.8 fL 09/2019 Unknown COMPLETE BLOOD COUNT [id number] Neut Auto 38.7 % 0 Unknown COMPLETE BLOOD COUNT [id number] Lymph Auto 48.0 % 03/13/19 20 Unknown COMPLETE BLOOD COUNT [id number] [place] Auto 9.5 % 0 Unknown COMPLETE BLOOD COUNT [id number] RDW 13.5 % 0 Unknown COMPLETE BLOOD COUNT [id number] Eos Auto 3.2 % 0 Unknown COMPLETE BLOOD COUNT [id number] Baso Auto 0.6 % 0 Unknown COMPLETE BLOOD COUNT [id number] Neutrophil Abs 2.75 10e9/L Unknown COMPLETE BLOOD COUNT [id number] Lymphocyte Abs 3.41 10e9/L Unknown COMPLETE BLOOD COUNT [id number] Monocyte Abs 0.67 10e9/L 09/2019 Unknown COMPLETE BLOOD COUNT [id number] Eosinophil Abs 0.23 10e9/L Unknown COMPLETE BLOOD COUNT [id number] RDW-SD 44.7 fL 0 Unknown COMPLETE BLOOD COUNT [id number] Basophil Abs 0.04 10e9/L 09/2019 Unknown THYROID STIMULATING HORMONE 89495 TSH 1.677 uIU/mL 03/13/2019 Unknown COMPREHENSIVE METABOLIC 11206 AST 19 U/L 2019 Unknown COMPREHENSIVE METABOLIC 78055 ALT 12 U/L 2019 Unknown COMPREHENSIVE METABOLIC 82528 BUN 17 mg/dL 2019 Unknown COMPREHENSIVE METABOLIC 50694 ALBUMIN 4.2 g/dL 2019 Unknown COMPREHENSIVE METABOLIC 98484 CHLORIDE 103 mmol/L 03/13 Unknown COMPREHENSIVE METABOLIC 21777 Bili Total 0.2 mg/dL 03/13 Unknown COMPREHENSIVE METABOLIC 27091 ALK PHOS 61 U/L 2019 Unknown COMPREHENSIVE METABOLIC 37734 SODIUM 140 mmol/L 03/13 Unknown COMPREHENSIVE METABOLIC 57099 CREATININE 0.95 mg/dL 09/2019 Unknown COMPREHENSIVE METABOLIC 28230 CALCIUM 9.4 mg/dL 2019 Unknown COMPREHENSIVE METABOLIC 39684 POTASSIUM 4.2 mmol/L 03/13 Unknown COMPREHENSIVE METABOLIC 27971 Total Protein 6.5 g/dL Unknown COMPREHENSIVE METABOLIC 92278 Glucose 103 mg/dL 2019 Unknown COMPREHENSIVE METABOLIC 98709 Bicarbonate 26 mmol/L 09/2019 Unknown COMPREHENSIVE METABOLIC 00507 AGAP 11 mmol/L 2019 Unknown GFR CALC [id number] GFR Non Afr Amr 57 mL/min 03/13/2019 Unk nown GFR CALC [id number] GFR Afr Amr >60 mL/min 03/13/2019 Unknow n GFR CALC [id number] GFR Non Afr Amr 52 mL/min 12/15/2018 Unk nown GFR CALC [id number] GFR Afr Amr >60 mL/min 12/15/2018 Unknow n COMPREHENSIVE METABOLIC 14196 AST 17 U/L 2018 Unknown COMPREHENSIVE METABOLIC 39493 ALT 11 U/L 2018 Unknown COMPREHENSIVE METABOLIC 41054 BUN 17 mg/dL 2018 Unknown COMPREHENSIVE METABOLIC 80717 ALBUMIN 3.9 g/dL 2018 Unknown COMPREHENSIVE METABOLIC 59927 CHLORIDE 108 mmol/L 12/15 Unknown COMPREHENSIVE METABOLIC 15480 Bili Total 0.5 mg/dL 12/15 Unknown COMPREHENSIVE METABOLIC 85011 ALK PHOS 72 U/L 2018 Unknown COMPREHENSIVE METABOLIC 42374 SODIUM 142 mmol/L 12/15 Unknown COMPREHENSIVE METABOLIC 73819 CREATININE 1.02 mg/dL 12/05 Unknown COMPREHENSIVE METABOLIC 93655 CALCIUM 9.3 mg/dL 2018 Unknown COMPREHENSIVE METABOLIC 57538 POTASSIUM 4.0 mmol/L 12/15 Unknown COMPREHENSIVE METABOLIC 09372 Total Protein 6.2 g/dL Unknown COMPREHENSIVE METABOLIC 49068 Glucose 93 mg/dL 2018 Unknown COMPREHENSIVE METABOLIC 92205 Bicarbonate 27 mmol/L 12/05 Unknown COMPREHENSIVE METABOLIC 17594 AGAP 7 mmol/L 2018 Unknown GFR CALC [id number] GFR Non Afr Amr 48 mL/min 08/14/2018 Unk nown GFR CALC [id number] GFR Afr Amr 59 mL/min 08/14/2018 Unknown THYROID STIMULATING HORMONE 72558 TSH 1.936 uIU/mL 08/14/2018 Unknown COMPREHENSIVE METABOLIC 63459 AST 18 U/L 2018 Unknown COMPREHENSIVE METABOLIC 56359 ALT 11 U/L 2018 Unknown COMPREHENSIVE METABOLIC 00879 BUN 18 mg/dL 2018 Unknown COMPREHENSIVE METABOLIC 15241 ALBUMIN 4.2 g/dL 2018 Unknown COMPREHENSIVE METABOLIC 73823 CHLORIDE 109 mmol/L 08/14 Unknown COMPREHENSIVE METABOLIC 11237 Bili Total 0.4 mg/dL 08/14 Unknown COMPREHENSIVE METABOLIC 79008 ALK PHOS 64 U/L 2018 Unknown COMPREHENSIVE METABOLIC 50194 SODIUM 142 mmol/L 08/14 Unknown COMPREHENSIVE METABOLIC 44959 CREATININE 1.09 mg/dL 08/05 Unknown COMPREHENSIVE METABOLIC 21782 CALCIUM 9.3 mg/dL 2018 Unknown COMPREHENSIVE METABOLIC 69182 POTASSIUM 4.7 mmol/L 08/14 Unknown COMPREHENSIVE METABOLIC 18283 Total Protein 6.3 g/dL Unknown COMPREHENSIVE METABOLIC 44574 Glucose 84 mg/dL 2018 Unknown COMPREHENSIVE METABOLIC 67607 Bicarbonate 25 mmol/L 08/05 Unknown COMPREHENSIVE METABOLIC 83639 AGAP 8 mmol/L 2018 Unknown COMPLETE BLOOD COUNT [id number] WBC 7.8 10e9/L 08/15/19 19 Unknown COMPLETE BLOOD COUNT [id number] RBC 4.04 10e12/L 2018 Unknown COMPLETE BLOOD COUNT [id number] HEMOGLOBIN 12.2 g/dL 08/15/19 19 Unknown COMPLETE BLOOD COUNT [id number] HEMATOCRIT 38.6 % 08/15/19 19 Unknown COMPLETE BLOOD COUNT [id number] MCV 95.5 fL 9 Unknown COMPLETE BLOOD COUNT [id number] MCH 30.2 pg 9 Unknown COMPLETE BLOOD COUNT [id number] MCHC 31.6 g/dL 9 Unknown COMPLETE BLOOD COUNT [id number] PLATELET COUNT 215 10e9/L 12/2018 Unknown COMPLETE BLOOD COUNT [id number] Mean Plt Volume 11.2 fL 12/2018 Unknown COMPLETE BLOOD COUNT [id number] Neut Auto 45.7 % 9 Unknown COMPLETE BLOOD COUNT [id number] Lymph Auto 42.1 % 08/15/19 19 Unknown COMPLETE BLOOD COUNT [id number] [place] Auto 9.2 % 9 Unknown COMPLETE BLOOD COUNT [id number] RDW 13.4 % 9 Unknown COMPLETE BLOOD COUNT 8996005 Eos Auto 2.7 % 9 Unknown COMPLETE BLOOD COUNT 7708978 Baso Auto 0.3 % 9 Unknown COMPLETE BLOOD COUNT [id number] Neutrophil Abs 3.56 10e9/L Unknown COMPLETE BLOOD COUNT [id number] Lymphocyte Abs 3.28 10e9/L Unknown COMPLETE BLOOD COUNT [id number] Monocyte Abs 0.72 10e9/L 08/05 Unknown COMPLETE BLOOD COUNT [id number] Eosinophil Abs 0.21 10e9/L Unknown COMPLETE BLOOD COUNT [id number] RDW-SD 44.9 fL 9 Unknown COMPLETE BLOOD COUNT [id number] Basophil Abs 0.02 10e9/L 08/05 Unknown COMPLETE BLOOD COUNT [id number] WBC 5.2 10e9/L 12/01/19 18 Unknown COMPLETE BLOOD COUNT [id number] RBC 4.21 10e12/L 2017 Unknown COMPLETE BLOOD COUNT [id number] HEMOGLOBIN 12.8 g/dL 12/01/19 18 Unknown COMPLETE BLOOD COUNT [id number] HEMATOCRIT 39.0 % 12/01/19 18 Unknown COMPLETE BLOOD COUNT [id number] MCV 92.6 fL 8 Unknown COMPLETE BLOOD COUNT [id number] MCH 30.4 pg 8 Unknown COMPLETE BLOOD COUNT [id number] MCHC 32.8 g/dL 8 Unknown COMPLETE BLOOD COUNT [id number] PLATELET COUNT 202 10e9/L Unknown COMPLETE BLOOD COUNT [id number] Mean Plt Volume 10.7 fL Unknown COMPLETE BLOOD COUNT 1164153 Neut Auto 40.9 % 8 Unknown COMPLETE BLOOD COUNT [id number] Lymph Auto 46.3 % 12/01/19 18 Unknown COMPLETE BLOOD COUNT [id number] [place] Auto 9.3 % 8 Unknown COMPLETE BLOOD COUNT [id number] RDW 13.7 % 8 Unknown COMPLETE BLOOD COUNT [id number] Eos Auto 2.9 % 8 Unknown COMPLETE BLOOD COUNT [id number] Baso Auto 0.6 % 8 Unknown COMPLETE BLOOD COUNT [id number] Neutrophil Abs 2.13 10e9/L Unknown COMPLETE BLOOD COUNT [id number] Lymphocyte Abs 2.41 10e9/L Unknown COMPLETE BLOOD COUNT [id number] Monocyte Abs 0.48 10e9/L 11/06 Unknown COMPLETE BLOOD COUNT [id number] Eosinophil Abs 0.15 10e9/L Unknown COMPLETE BLOOD COUNT [id number] RDW-SD 45.2 fL 8 Unknown COMPLETE BLOOD COUNT [id number] Basophil Abs 0.03 10e9/L 11/06 [place] [address] Glucose 118 mg/dL 11/30 [place] [address] CREATININE 1.01 mg/dL [place] [address] BUN 14 mg/dL 11/30 [place] [address] SODIUM 141 mmol/L 11/06 [place] [address] POTASSIUM 4.0 mmol/L 11/06 [place] [address] CHLORIDE 108 mmol/L 11/06 [place] [address] Bicarbonate 25 mmol/L [place] [address] AGAP 8 mmol/L 11/30 [place] [address] CALCIUM 9.6 mg/dL 11/30 Unknown FREE T4 19641 T4 Free 1.23 ng/dL 11/30/2017 Unknown GFR CALC [id number] GFR Non Afr Amr 53 mL/min 11/30/2017 Unk nown GFR CALC [id number] GFR Afr Amr >60 mL/min 11/30/2017 Unknow n THYROID STIMULATING HORMONE 13073 TSH 2.124 uIU/mL 11/30/2017 Unknown LIPID GROUP 08790 Cholesterol 152 mg/dL 09/28/2017 Unkno wn LIPID GROUP 01234 Triglyceride 151 mg/dL 09/28/2017 Unkn own LIPID GROUP 13244 HDL CHOLESTEROL 47 mg/dL 09/28/2017 U nknown LIPID GROUP 06396 Chol/HDL Ratio 3.23 ratio 09/28/2017 U nknown LIPID GROUP 91708 NON-HDL Chol 105 mg/dL 09/28/2017 Unkn own LIPID GROUP 25360 LDL Cholesterol 75 mg/dL 09/28/2017 U nknown ASSAY OF TROPONIN QUANT 56778 Troponin-I <0.30 ng/mL Unknown COMPREHENSIVE METABOLIC 02664 AST 20 U/L 2017 Unknown COMPREHENSIVE METABOLIC 25422 ALT 14 U/L 2017 Unknown COMPREHENSIVE METABOLIC 00458 BUN 19 mg/dL 2017 Unknown COMPREHENSIVE METABOLIC 94840 ALBUMIN 4.2 g/dL 2017 Unknown COMPREHENSIVE METABOLIC 84889 CHLORIDE 102 mmol/L 09/27 Unknown COMPREHENSIVE METABOLIC 79503 Bili Total 0.4 mg/dL 09/27 Unknown COMPREHENSIVE METABOLIC 10012 ALK PHOS 66 U/L 2017 Unknown COMPREHENSIVE METABOLIC 44452 SODIUM 135 mmol/L 09/27 Unknown COMPREHENSIVE METABOLIC 46729 CREATININE 1.01 mg/dL 09/05 Unknown COMPREHENSIVE METABOLIC 96336 CALCIUM 9.3 mg/dL 2017 Unknown COMPREHENSIVE METABOLIC 85536 POTASSIUM 4.8 mmol/L 09/27 Unknown COMPREHENSIVE METABOLIC 53598 Total Protein 7.0 g/dL Unknown COMPREHENSIVE METABOLIC 38642 Glucose 91 mg/dL 2017 Unknown COMPREHENSIVE METABOLIC 46032 Bicarbonate 23 mmol/L 09/05 Unknown COMPREHENSIVE METABOLIC 39328 AGAP 10 mmol/L 2017 Unknown COMPLETE BLOOD COUNT [id number] WBC 7.5 10e9/L 09/28/19 18 Unknown COMPLETE BLOOD COUNT [id number] RBC 4.13 10e12/L 2017 Unknown COMPLETE BLOOD COUNT [id number] HEMOGLOBIN 12.6 g/dL 09/28/19 18 Unknown COMPLETE BLOOD COUNT [id number] HEMATOCRIT 38.4 % 09/28/19 18 Unknown COMPLETE BLOOD COUNT [id number] MCV 93.0 fL 8 Unknown COMPLETE BLOOD COUNT [id number] MCH 30.5 pg 8 Unknown COMPLETE BLOOD COUNT [id number] MCHC 32.8 g/dL 8 Unknown COMPLETE BLOOD COUNT [id number] PLATELET COUNT 204 10e9/L Unknown COMPLETE BLOOD COUNT [id number] Mean Plt Volume 10.9 fL Unknown COMPLETE BLOOD COUNT [id number] Neut Auto 43.1 % 8 Unknown COMPLETE BLOOD COUNT [id number] Lymph Auto 45.0 % 09/28/19 18 Unknown COMPLETE BLOOD COUNT 7395837 [place] Auto 9.2 % 8 Unknown COMPLETE BLOOD COUNT [id number] RDW 13.4 % 8 Unknown COMPLETE BLOOD COUNT 2755677 Eos Auto 2.3 % 8 Unknown COMPLETE BLOOD COUNT 8629721 Baso Auto 0.4 % 8 Unknown COMPLETE BLOOD COUNT [id number] Neutrophil Abs 3.23 10e9/L Unknown COMPLETE BLOOD COUNT [id number] Lymphocyte Abs 3.38 10e9/L Unknown COMPLETE BLOOD COUNT [id number] Monocyte Abs 0.69 10e9/L 09/05 Unknown COMPLETE BLOOD COUNT [id number] Eosinophil Abs 0.17 10e9/L Unknown COMPLETE BLOOD COUNT [id number] RDW-SD 44.4 fL 8 Unknown COMPLETE BLOOD COUNT [id number] Basophil Abs 0.03 10e9/L 09/05 Unknown GFR CALC 4632167 GFR Non Afr Amr 53 mL/min 09/27/2017 Unk nown GFR CALC 6471276 GFR Afr Amr >60 mL/min 09/27/2017 Unknow n GLYCOSYLATED HEMOGLOBIN TEST 06301 Hgb A1c 26804-7 5.4 % 0 09/27/2017 Unknown MEAN GLUC 3782561 Calc Mean Gluc 108 mg/dL 09/27/2017 Unkn own MEAN GLUC 6902846 Calc Mean Gluc 114 mg/dL 11/01/2016 Unkn own LIPID GROUP 60957 Cholesterol 146 mg/dL 11/01/2016 Unkno wn LIPID GROUP 23705 Triglyceride 119 mg/dL 11/01/2016 Unkn own LIPID GROUP 97148 HDL CHOLESTEROL 47 mg/dL 11/01/2016 U nknown LIPID GROUP 37820 Chol/HDL Ratio 3.11 ratio 11/01/2016 U nknown LIPID GROUP 23030 NON-HDL Chol 99 mg/dL 11/01/2016 Unkn own LIPID GROUP 13833 LDL Cholesterol 75 mg/dL 11/01/2016 U nknown GLYCOSYLATED HEMOGLOBIN TEST 59048 Hgb A1c 86505-7 5.6 % 0 11/01/2016 Unknown COMPREHENSIVE METABOLIC 51628 AST 22 U/L 2016 Unknown COMPREHENSIVE METABOLIC 53107 ALT 12 U/L 2016 Unknown COMPREHENSIVE METABOLIC 79531 BUN 17 mg/dL 2016 Unknown COMPREHENSIVE METABOLIC 13460 ALBUMIN 4.0 g/dL 2016 Unknown COMPREHENSIVE METABOLIC 61055 CHLORIDE 110 mmol/L 11/01 Unknown COMPREHENSIVE METABOLIC 85960 Bili Total 0.4 mg/dL 11/01 Unknown COMPREHENSIVE METABOLIC 54821 ALK PHOS 63 U/L 2016 Unknown COMPREHENSIVE METABOLIC 01474 SODIUM 140 mmol/L 11/01 Unknown COMPREHENSIVE METABOLIC 17223 CREATININE 1.05 mg/dL 10/06 Unknown COMPREHENSIVE METABOLIC 62236 CALCIUM 9.2 mg/dL 2016 Unknown COMPREHENSIVE METABOLIC 51155 POTASSIUM 4.2 mmol/L 11/01 Unknown COMPREHENSIVE METABOLIC 27466 Total Protein 6.2 g/dL Unknown COMPREHENSIVE METABOLIC 78629 Glucose 87 mg/dL 2016 Unknown COMPREHENSIVE METABOLIC 35168 Bicarbonate 24 mmol/L 10/06 Unknown COMPREHENSIVE METABOLIC 54536 AGAP 6 mmol/L 2016 Unknown GFR CALC 2843043 GFR Non Afr Amr 51 mL/min 11/01/2016 Unk nown GFR CALC 7893651 GFR Afr Amr >60 mL/min 11/01/2016 Unknow n COMPLETE BLOOD COUNT 1121318 WBC 6.7 10e9/L 11/02/19 17 Unknown COMPLETE BLOOD COUNT 4941009 RBC 4.04 10e12/L 2016 Unknown COMPLETE BLOOD COUNT 9579067 HEMOGLOBIN 12.1 g/dL 11/02/19 17 Unknown COMPLETE BLOOD COUNT 7056727 HEMATOCRIT 38.0 % 11/02/19 17 Unknown COMPLETE BLOOD COUNT 7683054 MCV 94.1 fL 7 Unknown COMPLETE BLOOD COUNT 7467544 MCH 30.0 pg 7 Unknown COMPLETE BLOOD COUNT 1761952 MCHC 31.8 g/dL 7 Unknown COMPLETE BLOOD COUNT 7208365 PLATELET COUNT 206 10e9/L Unknown COMPLETE BLOOD COUNT 5830928 Mean Plt Volume 11.3 fL Unknown COMPLETE BLOOD COUNT 1839839 Neut Auto 35.8 % 7 Unknown COMPLETE BLOOD COUNT 2319768 Lymph Auto 51.6 % 11/02/19 17 Unknown COMPLETE BLOOD COUNT 0804783 [place] Auto 8.8 % 7 Unknown COMPLETE BLOOD COUNT 5365582 RDW 13.5 % 7 Unknown COMPLETE BLOOD COUNT 5901984 Eos Auto 3.4 % 7 Unknown COMPLETE BLOOD COUNT 2220003 Baso Auto 0.4 % 7 Unknown COMPLETE BLOOD COUNT 1672914 Neutrophil Abs 2.40 10e9/L Unknown COMPLETE BLOOD COUNT [id number] Lymphocyte Abs 3.46 10e9/L Unknown COMPLETE BLOOD COUNT 6255561 Monocyte Abs 0.59 10e9/L 10/06 Unknown COMPLETE BLOOD COUNT 9012805 Eosinophil Abs 0.23 10e9/L Unknown COMPLETE BLOOD COUNT 7408676 RDW-SD 45.3 fL 7 Unknown COMPLETE BLOOD COUNT 5790893 Basophil Abs 0.03 10e9/L 10/06 Unknown THYROID STIMULATING HORMONE 99033 TSH 1.981 uIU/mL 11/01/2016 Unknown COMPLETE BLOOD COUNT 7944068 WBC 6.0 10e9/L 05/14/19 17 Unknown COMPLETE BLOOD COUNT 2814724 RBC 4.29 10e12/L 2016 Unknown COMPLETE BLOOD COUNT 5369403 HEMOGLOBIN 12.9 g/dL 05/14/19 17 Unknown COMPLETE BLOOD COUNT 6543569 HEMATOCRIT 38.4 % 05/14/19 17 Unknown COMPLETE BLOOD COUNT 0536374 MCV 89.5 fL 7 Unknown COMPLETE BLOOD COUNT 0215345 MCH 30.1 pg 7 Unknown COMPLETE BLOOD COUNT 7873394 MCHC 33.6 g/dL 7 Unknown COMPLETE BLOOD COUNT 8218109 PLATELET COUNT 181 10e9/L 11/2016 Unknown COMPLETE BLOOD COUNT 7993484 Mean Plt Volume 11.7 fL 11/2016 Unknown COMPLETE BLOOD COUNT 1195106 Neut Auto 36.9 % 7 Unknown COMPLETE BLOOD COUNT 7879170 Lymph Auto 50.4 % 05/14/19 17 Unknown COMPLETE BLOOD COUNT 8319799 [place] Auto 9.0 % 7 Unknown COMPLETE BLOOD COUNT 5205257 RDW 13.7 % 7 Unknown COMPLETE BLOOD COUNT 4319065 Eos Auto 3.4 % 7 Unknown COMPLETE BLOOD COUNT 1403711 Baso Auto 0.3 % 7 Unknown COMPLETE BLOOD COUNT 8659926 Neutrophil Abs 2.21 10e9/L Unknown COMPLETE BLOOD COUNT 8192978 Lymphocyte Abs 3.02 10e9/L Unknown COMPLETE BLOOD COUNT 9426754 Monocyte Abs 0.54 10e9/L 11/2016 Unknown COMPLETE BLOOD COUNT 2108349 Eosinophil Abs 0.20 10e9/L Unknown COMPLETE BLOOD COUNT 6620556 RDW-SD 44.0 fL 7 Unknown COMPLETE BLOOD COUNT 4440884 Basophil Abs 0.02 10e9/L 11/2016 Unknown GLYCOSYLATED HEMOGLOBIN TEST 40915 Hgb A1c 34784-9 5.4 % 0 05/13/2016 Unknown THYROID STIMULATING HORMONE 93751 TSH 2.200 uIU/mL 05/13/2016 Unknown GFR CALC 7489753 GFR Non Afr Amr 50 mL/min 05/13/2016 Unk nown GFR CALC 0445950 GFR Afr Amr >60 mL/min 05/13/2016 Unknow n MEAN GLUC 4105749 Calc Mean Gluc 108 mg/dL 05/13/2016 Unkn own COMPREHENSIVE METABOLIC 42530 AST 18 U/L 2016 Unknown COMPREHENSIVE METABOLIC 38592 ALT 10 U/L 2016 Unknown COMPREHENSIVE METABOLIC 99564 BUN 20 mg/dL 2016 Unknown COMPREHENSIVE METABOLIC 17505 ALBUMIN 4.1 g/dL 2016 Unknown COMPREHENSIVE METABOLIC 44359 CHLORIDE 109 mmol/L 05/13 Unknown COMPREHENSIVE METABOLIC 27920 Bili Total 0.6 mg/dL 05/13 Unknown COMPREHENSIVE METABOLIC 58061 ALK PHOS 64 U/L 2016 Unknown COMPREHENSIVE METABOLIC 31237 SODIUM 141 mmol/L 05/13 Unknown COMPREHENSIVE METABOLIC 05923 CREATININE 1.06 mg/dL 11/2016 Unknown COMPREHENSIVE METABOLIC 60765 CALCIUM 9.9 mg/dL 2016 Unknown COMPREHENSIVE METABOLIC 66790 POTASSIUM 4.2 mmol/L 05/13 Unknown COMPREHENSIVE METABOLIC 01773 Total Protein 6.3 g/dL Unknown COMPREHENSIVE METABOLIC 61992 Glucose 99 mg/dL 2016 Unknown COMPREHENSIVE METABOLIC 94395 Bicarbonate 21 mmol/L 11/2016 Unknown COMPREHENSIVE METABOLIC 08530 AGAP 11 mmol/L 2016 Unknown LIPID GROUP 39977 Cholesterol 169 mg/dL 11/25/2015 Unkno wn LIPID GROUP 45248 Triglyceride 165 mg/dL 11/25/2015 Unkn own LIPID GROUP 60450 HDL CHOLESTEROL 43 mg/dL 11/25/2015 U nknown LIPID GROUP 23589 Chol/HDL Ratio 3.93 ratio 11/25/2015 U nknown LIPID GROUP 60290 NON-HDL Chol 126 mg/dL 11/25/2015 Unkn own LIPID GROUP 50386 LDL Cholesterol 93 mg/dL 11/25/2015 U nknown COMPREHENSIVE METABOLIC 82169 AST 18 U/L 2015 Unknown COMPREHENSIVE METABOLIC 54769 ALT 10 U/L 2015 Unknown COMPREHENSIVE METABOLIC 82500 BUN 20 mg/dL 2015 Unknown COMPREHENSIVE METABOLIC 04377 ALBUMIN 3.9 g/dL 2015 Unknown COMPREHENSIVE METABOLIC 92422 CHLORIDE 110 mmol/L 11/24 Unknown COMPREHENSIVE METABOLIC 36676 Bili Total 0.5 mg/dL 11/24 Unknown COMPREHENSIVE METABOLIC 39056 ALK PHOS 72 U/L 2015 Unknown COMPREHENSIVE METABOLIC 01404 SODIUM 141 mmol/L 11/24 Unknown COMPREHENSIVE METABOLIC 70891 CREATININE 1.12 mg/dL 11/06 Unknown COMPREHENSIVE METABOLIC 04153 CALCIUM 9.7 mg/dL 2015 Unknown COMPREHENSIVE METABOLIC 46462 POTASSIUM 4.4 mmol/L 11/24 Unknown COMPREHENSIVE METABOLIC 76646 Total Protein 6.2 g/dL Unknown COMPREHENSIVE METABOLIC 27010 Glucose 90 mg/dL 2015 Unknown COMPREHENSIVE METABOLIC 57822 Bicarbonate 23 mmol/L 11/06 Unknown COMPREHENSIVE METABOLIC 96063 AGAP 8 mmol/L 2015 Unknown GFR CALC 5581440 GFR Non Afr Amr 47 mL/min 11/25/2015 Unk nown GFR CALC 5704618 GFR Afr Amr 57 mL/min 11/25/2015 Unknown GLYCOSYLATED HEMOGLOBIN TEST 50708 Hgb A1c 45815-9 5.5 % 0 11/25/2015 Unknown THYROID STIMULATING HORMONE 61347 TSH 2.537 uIU/mL 11/25/2015 Unknown FREE T4 86226 T4 Free 1.36 ng/dL 11/25/2015 Unknown COMPLETE BLOOD COUNT 7049310 WBC 6.8 10e9/L 11/25/19 16 Unknown COMPLETE BLOOD COUNT 1325919 RBC 4.20 10e12/L 2015 Unknown COMPLETE BLOOD COUNT 8950760 HEMOGLOBIN 12.5 g/dL 11/25/19 16 Unknown COMPLETE BLOOD COUNT 1645854 HEMATOCRIT 38.0 % 11/25/19 16 Unknown COMPLETE BLOOD COUNT 1654696 MCV 90.5 fL 6 Unknown COMPLETE BLOOD COUNT 2708415 MCH 29.8 pg 6 Unknown COMPLETE BLOOD COUNT 6508827 MCHC 32.9 g/dL 6 Unknown COMPLETE BLOOD COUNT 6089131 PLATELET COUNT 197 10e9/L Unknown COMPLETE BLOOD COUNT 5686317 Mean Plt Volume 11.7 fL Unknown COMPLETE BLOOD COUNT 0108143 Neut Auto 41.3 % 6 Unknown COMPLETE BLOOD COUNT 4939119 Lymph Auto 47.1 % 11/25/19 16 Unknown COMPLETE BLOOD COUNT 2877423 [place] Auto 7.8 % 6 Unknown COMPLETE BLOOD COUNT 6220247 RDW 13.8 % 6 Unknown COMPLETE BLOOD COUNT 9129766 Eos Auto 3.4 % 6 Unknown COMPLETE BLOOD COUNT 7846227 Baso Auto 0.4 % 6 Unknown COMPLETE BLOOD COUNT 4600567 Neutrophil Abs 2.81 10e9/L Unknown COMPLETE BLOOD COUNT 8319766 Lymphocyte Abs 3.20 10e9/L Unknown COMPLETE BLOOD COUNT 7816996 Monocyte Abs 0.53 10e9/L 11/06 Unknown COMPLETE BLOOD COUNT 3790144 Eosinophil Abs 0.23 10e9/L Unknown COMPLETE BLOOD COUNT 6014488 RDW-SD 44.4 fL 6 Unknown COMPLETE BLOOD COUNT 0986251 Basophil Abs 0.03 10e9/L 11/06 Unknown MEAN GLUC 4970009 Calc Mean Gluc 111 mg/dL 11/25/2015 [place] [address] Glucose 89 MG/DL 02/19 [place] [address] CREATININE 1.12 MG/DL [place] [address] BUN 20 MG/DL 02/19 [place] [address] SODIUM 139 MMOL/L 02/04 [place] [address] POTASSIUM 4.6 MMOL/L 02/04 [place] [address] CHLORIDE 108 MMOL/L 02/04 [place] [address] BICARB 26 MMOL/L 02/19 [place] [address] ANION GAP 5 MEQ/L 02/19 [place] [address] CALCIUM 10.0 MG/DL 02/04 Unknown GFR CALC 3538112 GFR AA 57.0L ML/MIN 02/19/2015 Unknow n GFR CALC 1901159 GFR NON-AA 47.0L ML/MIN 02/19/2015 Unkno wn THYROID STIMULATING HORMONE 47072 TSH 2.378 uIU/ML 11/14/2014 Unknown COMPLETE BLOOD COUNT 2055910 WBC 6.4 10e9/L 11/15/19 15 Unknown COMPLETE BLOOD COUNT 0996800 RBC 3.99 10e12/L 2014 Unknown COMPLETE BLOOD COUNT 6323964 HGB 11.9 g/dL 5 Unknown COMPLETE BLOOD COUNT 0340343 HCT DET 36.9 % 5 Unknown COMPLETE BLOOD COUNT 5316197 MCV 92.5 fL 5 Unknown COMPLETE BLOOD COUNT 5456415 MCH 29.8 pg 5 Unknown COMPLETE BLOOD COUNT 2533598 MCHC 32.2 g/dL 5 Unknown COMPLETE BLOOD COUNT 7515299 PLT 172 10e9/L 11/15/19 15 Unknown COMPLETE BLOOD COUNT 6990853 MPV 11.7 fL 5 Unknown COMPLETE BLOOD COUNT 4967619 [place] % 40.4 % 5 Unknown COMPLETE BLOOD COUNT 9867297 LY % 48.0 % 5 Unknown COMPLETE BLOOD COUNT 6599698 MON % 8.3 % 5 Unknown COMPLETE BLOOD COUNT 3290019 EOS % 2.8 % 5 Unknown COMPLETE BLOOD COUNT 8565906 BASO % 0.5 % 5 Unknown COMPLETE BLOOD COUNT 4472582 RDW 13.6 % 5 Unknown COMPLETE BLOOD COUNT 1862296 ABS [place] 2.59 10e9/L 015 Unknown COMPLETE BLOOD COUNT 5100614 ABS LYMPH 3.07 10e9/L 015 Unknown COMPLETE BLOOD COUNT 6165439 ABS MONO 0.53 10e9/L 015 Unknown COMPLETE BLOOD COUNT 4183739 ABS EOS 0.18 10e9/L 015 Unknown COMPLETE BLOOD COUNT 2004672 ABS BASO 0.03 10e9/L 015 Unknown COMPLETE BLOOD COUNT 4044802 RDW-SD 44.9 fL 5 Unknown LIPID GROUP 58934 HDL TEST 42 MG/DL 11/14/2014 Unknown LIPID GROUP 21048 TRIG 177 MG/DL 11/14/2014 Unknown LIPID GROUP 06039 TEST LDL 72 MG/DL 11/14/2014 Unknown LIPID GROUP 50461 CHOL 149 MG/DL 11/14/2014 Unknown LIPID GROUP 54998 RCHOL/HDL 3.55 RATIO 11/14/2014 Unknow n LIPID GROUP 40945 NON-HDL CH 107 MG/DL 11/14/2014 Unknow n GLYCOSYLATED HEMOGLOBIN TEST 04140 A1C HPLC 65509-8 5.5 % 0 11/14/2014 Unknown FREE T4 56892 FREE T4 1.39 NG/DL 11/14/2014 Unknown GFR CALC 7731550 GFR AA 55.0L ML/MIN 11/14/2014 Unknow n GFR CALC 1482346 GFR NON-AA 46.0L ML/MIN 11/14/2014 Unkno wn COMPREHENSIVE METABOLIC 98064 AST 17 U/L 2014 Unknown COMPREHENSIVE METABOLIC 92128 ALT 10 IU/L 2014 Unknown COMPREHENSIVE METABOLIC 56817 BUN 20 MG/DL 2014 Unknown COMPREHENSIVE METABOLIC 30977 ALBUMIN 3.9 GM/DL 2014 Unknown COMPREHENSIVE METABOLIC 49256 CHLORIDE 111 MMOL/L 11/14 Unknown COMPREHENSIVE METABOLIC 44844 BILI TOT 0.4 MG/DL 2014 Unknown COMPREHENSIVE METABOLIC 67455 ALK PHOS 70 U/L 2014 Unknown COMPREHENSIVE METABOLIC 72936 SODIUM 142 MMOL/L 11/14 Unknown COMPREHENSIVE METABOLIC 70168 CREATININE 1.16 MG/DL 11/05 Unknown COMPREHENSIVE METABOLIC 58821 CALCIUM 9.4 MG/DL 2014 Unknown COMPREHENSIVE METABOLIC 61251 POTASSIUM 4.6 MMOL/L 11/14 Unknown COMPREHENSIVE METABOLIC 11132 PROT TOT 6.2 GM/DL 2014 Unknown COMPREHENSIVE METABOLIC 15370 Glucose 90 MG/DL 2014 Unknown COMPREHENSIVE METABOLIC 76893 BICARB 24 MMOL/L 2014 Unknown COMPREHENSIVE METABOLIC 71996 ANION GAP 7 MEQ/L 2014 Unknown THYROID STIMULATING HORMONE 48669 TSH 2.427 uIU/ML 05/10/2014 Unknown LIPID GROUP 74589 HDL TEST 47 MG/DL 05/10/2014 Unknown LIPID GROUP 20429 TRIG 145 MG/DL 05/10/2014 Unknown LIPID GROUP 62642 TEST LDL 73 MG/DL 05/10/2014 Unknown LIPID GROUP 68693 CHOL 149 MG/DL 05/10/2014 Unknown LIPID GROUP 66752 RCHOL/HDL 3.17 RATIO 05/10/2014 Unknow n LIPID GROUP 46451 NON-HDL CH 102 MG/DL 05/10/2014 Unknow n COMPREHENSIVE METABOLIC 03865 AST 17 U/L 2014 Unknown COMPREHENSIVE METABOLIC 51902 ALT 9 IU/L 2014 Unknown COMPREHENSIVE METABOLIC 07514 BUN 19 MG/DL 2014 Unknown COMPREHENSIVE METABOLIC 73020 ALBUMIN 4.3 GM/DL 2014 Unknown COMPREHENSIVE METABOLIC 50846 CHLORIDE 108 MMOL/L 05/10 Unknown COMPREHENSIVE METABOLIC 53581 BILI TOT 0.5 MG/DL 2014 Unknown COMPREHENSIVE METABOLIC 05500 ALK PHOS 68 U/L 2014 Unknown COMPREHENSIVE METABOLIC 09249 SODIUM 140 MMOL/L 05/10 Unknown COMPREHENSIVE METABOLIC 99691 CREATININE 1.08 MG/DL 08/2014 Unknown COMPREHENSIVE METABOLIC 09172 CALCIUM 9.9 MG/DL 2014 Unknown COMPREHENSIVE METABOLIC 30461 POTASSIUM 4.3 MMOL/L 05/10 Unknown COMPREHENSIVE METABOLIC 18973 PROT TOT 7.2 GM/DL 2014 Unknown COMPREHENSIVE METABOLIC 16288 Glucose 94 MG/DL 2014 Unknown COMPREHENSIVE METABOLIC 40843 BICARB 26 MMOL/L 2014 Unknown COMPREHENSIVE METABOLIC 36779 ANION GAP 6 MEQ/L 2014 Unknown GFR CALC 5923228 GFR AA 60.0L ML/MIN 05/10/2014 Unknow n GFR CALC 8655246 GFR NON-AA 49.0L ML/MIN 05/10/2014 Unkno wn GLYCOSYLATED HEMOGLOBIN TEST 94879 A1C HPLC 02895-2 5.6 % 0 05/10/2014 Unknown COMPLETE BLOOD COUNT 9017730 WBC 7.2 10e9/L 05/11/19 15 Unknown COMPLETE BLOOD COUNT 1841004 RBC 4.28 10e12/L 2014 Unknown COMPLETE BLOOD COUNT 6871586 HGB 12.8 g/dL 5 Unknown COMPLETE BLOOD COUNT 5493504 HCT DET 39.3 % 5 Unknown COMPLETE BLOOD COUNT 2590960 MCV 91.8 fL 5 Unknown COMPLETE BLOOD COUNT 6873710 MCH 29.9 pg 5 Unknown COMPLETE BLOOD COUNT 9531252 MCHC 32.6 g/dL 5 Unknown COMPLETE BLOOD COUNT 3032056 PLT 189 10e9/L 05/11/19 15 Unknown COMPLETE BLOOD COUNT 7026804 MPV 11.2 fL 5 Unknown COMPLETE BLOOD COUNT 7087937 [place] % 38.0 % 5 Unknown COMPLETE BLOOD COUNT 5995567 LY % 51.0 % 5 Unknown COMPLETE BLOOD COUNT 7242896 MON % 7.7 % 5 Unknown COMPLETE BLOOD COUNT 8991016 EOS % 2.9 % 5 Unknown COMPLETE BLOOD COUNT 5163073 BASO % 0.4 % 5 Unknown COMPLETE BLOOD COUNT 3873078 RDW 14.0 % 5 Unknown COMPLETE BLOOD COUNT 0060362 ABS [place] 2.74 10e9/L 015 Unknown COMPLETE BLOOD COUNT 1404825 ABS LYMPH 3.67 10e9/L 015 Unknown COMPLETE BLOOD COUNT 3557352 ABS MONO 0.55 10e9/L 015 Unknown COMPLETE BLOOD COUNT 0885146 ABS EOS 0.21 10e9/L 015 Unknown COMPLETE BLOOD COUNT 1213623 ABS BASO 0.03 10e9/L 015 Unknown COMPLETE BLOOD COUNT 0566183 RDW-SD 46.1 fL 5 Unknown FREE T4 33944 FREE T4 1.14 NG/DL 05/10/2014 Unknown GLYCOSYLATED HEMOGLOBIN TEST 87447 A1C HPLC 99865-1 5.2 % 0 03/29/2013 Unknown FREE T4 56698 FREE T4 1.40 NG/DL 03/28/2013 Unknown GFR CALC 2332951 GFR AA >60 ML/MIN 03/28/2013 Unknown GFR CALC 1668380 GFR NON-AA 52.0L ML/MIN 03/28/2013 Unkno wn COMPREHENSIVE METABOLIC 70641 AST 15 U/L 2013 Unknown COMPREHENSIVE METABOLIC 36981 ALT 9 IU/L 2013 Unknown COMPREHENSIVE METABOLIC 64520 BUN 17 MG/DL 2013 Unknown COMPREHENSIVE METABOLIC 71119 ALBUMIN 4.0 GM/DL 2013 Unknown COMPREHENSIVE METABOLIC 49476 CHLORIDE 112 MMOL/L 03/28 Unknown COMPREHENSIVE METABOLIC 52650 BILI TOT 0.5 MG/DL 2013 Unknown COMPREHENSIVE METABOLIC 28926 ALK PHOS 66 U/L 2013 Unknown COMPREHENSIVE METABOLIC 91695 SODIUM 140 MMOL/L 03/28 Unknown COMPREHENSIVE METABOLIC 34100 CREATININE 1.03 MG/DL 03/08 Unknown COMPREHENSIVE METABOLIC 39937 CALCIUM 9.5 MG/DL 2013 Unknown COMPREHENSIVE METABOLIC 65815 POTASSIUM 4.1 MMOL/L 03/28 Unknown COMPREHENSIVE METABOLIC 55386 PROT TOT 6.2 GM/DL 2013 Unknown COMPREHENSIVE METABOLIC 57734 Glucose 102 MG/DL 2013 Unknown COMPREHENSIVE METABOLIC 02416 BICARB 23 MMOL/L 2013 Unknown COMPREHENSIVE METABOLIC 92182 ANION GAP 5 MEQ/L 2013 Unknown THYROID STIMULATING HORMONE 04866 TSH 2.074 uIU/ML 03/28/2013 Unknown VITAMIN B 12 FOLIC ACID 48001|20159 VIT B 12 423 PG/ML 03/08 Unknown VITAMIN B 12 FOLIC ACID 14021|27367 FOLIC ACID 19.7 NG/ML Unknown LIPID GROUP 76179 HDL TEST 40 MG/DL 03/28/2013 Unknown LIPID GROUP 21557 TRIG 145 MG/DL 03/28/2013 Unknown LIPID GROUP 24734 TEST LDL 81 MG/DL 03/28/2013 Unknown LIPID GROUP 70482 CHOL 150 MG/DL 03/28/2013 Unknown LIPID GROUP 51011 RCHOL/HDL 3.75 RATIO 03/28/2013 Unknow n COMPLETE BLOOD COUNT 2668182 WBC 6.0 10e9/L 03/28/19 14 Unknown COMPLETE BLOOD COUNT 8511171 RBC 4.26 10e12/L 2013 Unknown COMPLETE BLOOD COUNT 5407725 HGB 12.7 g/dL 4 Unknown COMPLETE BLOOD COUNT 4953137 HCT DET 38.7 % 4 Unknown COMPLETE BLOOD COUNT 1632667 MCV 90.8 fL 4 Unknown COMPLETE BLOOD COUNT 3566131 MCH 29.8 pg 4 Unknown COMPLETE BLOOD COUNT 2741676 MCHC 32.8 g/dL 4 Unknown COMPLETE BLOOD COUNT 3304387 PLT 178 10e9/L 03/28/19 14 Unknown COMPLETE BLOOD COUNT 1132680 MPV 11.7 fL 4 Unknown COMPLETE BLOOD COUNT 5379302 [place] % 30.5 % 4 Unknown COMPLETE BLOOD COUNT 4129684 LY % 55.4 % 4 Unknown COMPLETE BLOOD COUNT 8484668 MON % 9.0 % 4 Unknown COMPLETE BLOOD COUNT 8708430 EOS % 4.4 % 4 Unknown COMPLETE BLOOD COUNT 1173189 BASO % 0.7 % 4 Unknown COMPLETE BLOOD COUNT 8941998 RDW 13.3 % 4 Unknown COMPLETE BLOOD COUNT 8772741 ABS CINTHYA 1.83 10e9/L 014 Unknown COMPLETE BLOOD COUNT 6704985 ABS LYMPH 3.32 10e9/L 014 Unknown COMPLETE BLOOD COUNT 5042346 ABS MONO 0.54 10e9/L 014 Unknown COMPLETE BLOOD COUNT 6966331 ABS EOS 0.26 10e9/L 014 Unknown COMPLETE BLOOD COUNT 2755953 ABS BASO 0.04 10e9/L 014 Unknown COMPLETE BLOOD COUNT 5106338 RDW-SD 43.2 fL 4 Unknown HEMOGLOBIN A1C (GLYCOSYLATED) 1323694 A1C HPLC 41766-7 5.5 % 02/24/2012 Unknown COMPLETE BLOOD COUNT 6599303 WBC 6.0 10e9/L 02/23/20 12 Unknown COMPLETE BLOOD COUNT 8380054 RBC 4.22 10e12/L 2011 Unknown COMPLETE BLOOD COUNT 5903367 HGB 12.4 g/dL 2 Unknown COMPLETE BLOOD COUNT 7833341 HCT DET 38.2 % 2 Unknown COMPLETE BLOOD COUNT 1532038 MCV 90.5 fL 2 Unknown COMPLETE BLOOD COUNT 9984097 MCH 29.4 pg 2 Unknown COMPLETE BLOOD COUNT 4448683 MCHC 32.5 g/dL 2 Unknown COMPLETE BLOOD COUNT 4602348 PLT 187 10e9/L 02/23/20 12 Unknown COMPLETE BLOOD COUNT 9135424 MPV 11.5 fL 2 Unknown COMPLETE BLOOD COUNT 7273405 CINTH[place] % 36.4 % 2 Unknown COMPLETE BLOOD COUNT 5812803 LY % 51.0 % 2 Unknown COMPLETE BLOOD COUNT 8614778 MON % 8.7 % 2 Unknown COMPLETE BLOOD COUNT 1226061 EOS % 3.2 % 2 Unknown COMPLETE BLOOD COUNT 2900619 BASO % 0.7 % 2 Unknown COMPLETE BLOOD COUNT 1156796 RDW 13.7 % 2 Unknown COMPLETE BLOOD COUNT 2615854 ABS CINTHYA 2.18 10e9/L 012 Unknown COMPLETE BLOOD COUNT 2961023 ABS LYMPH 3.06 10e9/L 012 Unknown COMPLETE BLOOD COUNT 8305549 ABS MONO 0.52 10e9/L 012 Unknown COMPLETE BLOOD COUNT 8249341 ABS EOS 0.19 10e9/L 012 Unknown COMPLETE BLOOD COUNT 8540477 ABS BASO 0.04 10e9/L 012 Unknown COMPLETE BLOOD COUNT 8856835 RDW-SD 44.3 fL 2 Unknown LIPID GROUP 33876 HDL TEST 42 MG/DL 02/23/2012 Unknown LIPID GROUP 90875 TRIG 156 MG/DL 02/23/2012 Unknown LIPID GROUP 55784 TEST LDL 80 MG/DL 02/23/2012 Unknown LIPID GROUP 73522 CHOL 153 MG/DL 02/23/2012 Unknown LIPID GROUP 27265 RCHOL/HDL 3.64 RATIO 02/23/2012 Unknow n FREE T4 50045 FREE T4 1.22 NG/DL 02/23/2012 Unknown COMPREHENSIVE METABOLIC 50886 AST 20 U/L 2011 Unknown COMPREHENSIVE METABOLIC 52540 ALT 11 IU/L 2011 Unknown COMPREHENSIVE METABOLIC 20446 BUN 19 MG/DL 2011 Unknown COMPREHENSIVE METABOLIC 15856 ALBUMIN 4.3 GM/DL 2011 Unknown COMPREHENSIVE METABOLIC 82654 CHLORIDE 109 MMOL/L 02/22 Unknown COMPREHENSIVE METABOLIC 79764 BILI TOT 0.6 MG/DL 2011 Unknown COMPREHENSIVE METABOLIC 53306 ALK PHOS 84 U/L 2011 Unknown COMPREHENSIVE METABOLIC 85226 SODIUM 142 MMOL/L 02/22 Unknown COMPREHENSIVE METABOLIC 72192 CREATININE 1.09 MG/DL 02/04 Unknown COMPREHENSIVE METABOLIC 21432 CALCIUM 9.8 MG/DL 2011 Unknown COMPREHENSIVE METABOLIC 98010 POTASSIUM 4.2 MMOL/L 02/22 Unknown COMPREHENSIVE METABOLIC 84156 PROT TOT 6.4 GM/DL 2011 Unknown COMPREHENSIVE METABOLIC 85796 Glucose 89 MG/DL 2011 Unknown COMPREHENSIVE METABOLIC 14276 BICARB 25 MMOL/L 2011 Unknown COMPREHENSIVE METABOLIC 45579 ANION GAP 8 MEQ/L 2011 Unknown GFR CALC 0284512 GFR AA 60.0L ML/MIN 02/23/2012 Unknow n GFR CALC 5470446 GFR NON-AA 49.0L ML/MIN 02/23/2012 Unkno wn THYROID STIMULATING HORMONE 02049 TSH 2.450 uIU/ML 02/23/2012 Unknown COMPREHENSIVE METABOLIC 94610 AST 22 U/L 2011 Unknown COMPREHENSIVE METABOLIC 46147 ALT 14 IU/L 2011 Unknown COMPREHENSIVE METABOLIC 62240 BUN 21 MG/DL 2011 Unknown COMPREHENSIVE METABOLIC 46519 ALBUMIN 4.3 GM/DL 2011 Unknown COMPREHENSIVE METABOLIC 52990 CHLORIDE 106 MMOL/L 04/01 Unknown COMPREHENSIVE METABOLIC 93384 BILI TOT 0.4 MG/DL 2011 Unknown COMPREHENSIVE METABOLIC 91737 ALK PHOS 80 U/L 2011 Unknown COMPREHENSIVE METABOLIC 65264 SODIUM 141 MMOL/L 04/01 Unknown COMPREHENSIVE METABOLIC 59230 CREATININE 1.13 MG/DL 03/08 Unknown COMPREHENSIVE METABOLIC 06518 CALCIUM 9.4 MG/DL 2011 Unknown COMPREHENSIVE METABOLIC 16186 POTASSIUM 4.3 MMOL/L 04/01 Unknown COMPREHENSIVE METABOLIC 13681 PROT TOT 6.7 GM/DL 2011 Unknown COMPREHENSIVE METABOLIC 35013 Glucose 98 MG/DL 2011 Unknown COMPREHENSIVE METABOLIC 91653 BICARB 25 MMOL/L 2011 Unknown COMPREHENSIVE METABOLIC 58058 ANION GAP 10 MEQ/L 2011 Unknown LIPID GROUP 70167 HDL TEST 44 MG/DL 04/01/2011 Unknown LIPID GROUP 18452 TRIG 164 MG/DL 04/01/2011 Unknown LIPID GROUP 37085 TEST LDL 98 MG/DL 04/01/2011 Unknown LIPID GROUP 72925 CHOL 175 MG/DL 04/01/2011 Unknown LIPID GROUP 76217 RCHOL/HDL 3.98 RATIO 04/01/2011 Unknow n COMPLETE BLOOD COUNT 77311 WBC 6.7 10e9/L 04/01/19 12 Unknown COMPLETE BLOOD COUNT 57206 RBC 4.36 10e12/L 2011 Unknown COMPLETE BLOOD COUNT 32052 HGB 12.9 g/dL 2 Unknown COMPLETE BLOOD COUNT 37902 HCT DET 39.4 % 2 Unknown COMPLETE BLOOD COUNT 31525 MCV 90.4 fL 2 Unknown COMPLETE BLOOD COUNT 73064 MCH 29.6 pg 2 Unknown COMPLETE BLOOD COUNT 52252 MCHC 32.7 g/dL 2 Unknown COMPLETE BLOOD COUNT 36293 PLT 184 10e9/L 04/01/19 12 Unknown COMPLETE BLOOD COUNT 31944 MPV 10.9 fL 2 Unknown COMPLETE BLOOD COUNT 35252 CINTHYA % 41.5 % 2 Unknown COMPLETE BLOOD COUNT 90988 LY % 45.7 % 2 Unknown COMPLETE BLOOD COUNT 55861 MON % 9.4 % 2 Unknown COMPLETE BLOOD COUNT 85560 EOS % 3.0 % 2 Unknown COMPLETE BLOOD COUNT 95540 BASO % 0.4 % 2 Unknown COMPLETE BLOOD COUNT 44582 RDW 13.2 % 2 Unknown COMPLETE BLOOD COUNT 51482 ABS CINTHYA 2.78 10e9/L 012 Unknown COMPLETE BLOOD COUNT 16976 ABS LYMPH 3.06 10e9/L 012 Unknown COMPLETE BLOOD COUNT 86184 ABS MONO 0.63 10e9/L 012 Unknown COMPLETE BLOOD COUNT 79780 ABS EOS 0.20 10e9/L 012 Unknown COMPLETE BLOOD COUNT 65698 ABS BASO 0.03 10e9/L 012 Unknown COMPLETE BLOOD COUNT 14899 RDW-SD 42.3 fL 2 Unknown GFR CALC [id number] GFR AA 57.0L ML/MIN 04/01/2011 Unknow n GFR CALC [id number] GFR NON-AA 47.0L ML/MIN 04/01/2011 Unkno wn THYROID STIMULATING HORMONE 51768 TSH 2.663 uIU/ML 04/01/2011 Unknown FREE T4 28299 FREE T4 1.15 NG/DL 04/01/2011 Unknown THYROID STIMULATING HORMONE 86456 TSH 1.908 uIU/ML 07/06/2010 Unknown COMPLETE BLOOD COUNT 27359 WBC 6.4 10e9/L 07/07/19 11 Unknown COMPLETE BLOOD COUNT 06241 RBC 3.92 10e12/L 2010 Unknown COMPLETE BLOOD COUNT 83340 HGB 11.8 g/dL 1 Unknown COMPLETE BLOOD COUNT 34760 HCT DET 36.0 % 1 Unknown COMPLETE BLOOD COUNT 91608 MCV 91.8 fL 1 Unknown COMPLETE BLOOD COUNT 06223 MCH 30.1 pg 1 Unknown COMPLETE BLOOD COUNT 24542 MCHC 32.8 g/dL 1 Unknown COMPLETE BLOOD COUNT 72646 PLT 176 10e9/L 07/07/19 11 Unknown COMPLETE BLOOD COUNT 76853 MPV 11.4 fL 1 Unknown COMPLETE BLOOD COUNT 22770 CINTHYA % 50.4 % 1 Unknown COMPLETE BLOOD COUNT 67612 LY % 35.5 % 1 Unknown COMPLETE BLOOD COUNT 14869 MON % 10.2 % 1 Unknown COMPLETE BLOOD COUNT 74546 EOS % 3.3 % 1 Unknown COMPLETE BLOOD COUNT 39488 BASO % 0.6 % 1 Unknown COMPLETE BLOOD COUNT 26887 RDW 13.7 % 1 Unknown COMPLETE BLOOD COUNT 64571 ABS CINTHYA 3.23 10e9/L 011 Unknown COMPLETE BLOOD COUNT 13740 ABS LYMPH 2.27 10e9/L 011 Unknown COMPLETE BLOOD COUNT 86195 ABS MONO 0.65 10e9/L 011 Unknown COMPLETE BLOOD COUNT 23771 ABS EOS 0.21 10e9/L 011 Unknown COMPLETE BLOOD COUNT 23450 ABS BASO 0.04 10e9/L 011 Unknown COMPLETE BLOOD COUNT 56539 RDW-SD 45.3 fL 1 Unknown GFR CALC [id number] GFR AA >60 ML/MIN 07/06/2010 Unknown GFR CALC 1411267 GFR NON-AA 53.0L ML/MIN 07/06/2010 Unkno wn FREE T4 12588 FREE T4 1.20 NG/DL 07/06/2010 Unknown COMPREHENSIVE METABOLIC 23206 AST 17 U/L 2010 Unknown COMPREHENSIVE METABOLIC 84655 ALT 9 IU/L 2010 Unknown COMPREHENSIVE METABOLIC 31222 BUN 16 MG/DL 2010 Unknown COMPREHENSIVE METABOLIC 52517 ALBUMIN 4.0 GM/DL 2010 Unknown COMPREHENSIVE METABOLIC 89594 CHLORIDE 108 MMOL/L 07/06 Unknown COMPREHENSIVE METABOLIC 38695 BILI TOT 0.5 MG/DL 2010 Unknown COMPREHENSIVE METABOLIC 13653 ALK PHOS 76 U/L 2010 Unknown COMPREHENSIVE METABOLIC 09815 SODIUM 139 MMOL/L 07/06 Unknown COMPREHENSIVE METABOLIC 06540 CREATININE 1.02 MG/DL 04/2010 Unknown COMPREHENSIVE METABOLIC 53640 CALCIUM 9.2 MG/DL 2010 Unknown COMPREHENSIVE METABOLIC 71013 POTASSIUM 4.5 MMOL/L 07/06 Unknown COMPREHENSIVE METABOLIC 40955 PROT TOT 6.1 GM/DL 2010 Unknown COMPREHENSIVE METABOLIC 55701 Glucose 93 MG/DL 2010 Unknown COMPREHENSIVE METABOLIC 49552 BICARB 26 MMOL/L 2010 Unknown COMPREHENSIVE METABOLIC 16534 ANION GAP 5 MEQ/L 2010 Unknown LIPID GROUP 66791 HDL TEST 46 MG/DL 07/06/2010 Unknown LIPID GROUP 29528 TRIG 102 MG/DL 07/06/2010 Unknown LIPID GROUP 69002 TEST LDL 88 MG/DL 07/06/2010 Unknown LIPID GROUP 97829 CHOL 154 MG/DL 07/06/2010 Unknown LIPID GROUP 18207 RCHOL/HDL 3.35 RATIO 07/06/2010 Unknow n Procedures Procedure Codes Date ROUTINE VENIPUNCTURE CPT-4: 32592 03/13/2019 ASSAY THYROID STIM HORMONE CPT-4: 62244 03/13/2019 COMPLETE CBC W/AUTO DIFF WBC CPT-4: 43594 03/13/2019 COMPREHEN METABOLIC PANEL CPT-4: 08222 03/13/2019 ROUTINE VENIPUNCTURE CPT-4: 66479 01/23/2019 LIPID PANEL CPT-4: 10546 01/23/2019 FLU VACC PRSV FREE INC ANTIG 65 AND OLDER CPT-4: 88675 12/26/2018 FLU VACC PRSV FREE INC ANTIG 65 AND OLDER CPT-4: 94800 12/26/2018 ADMIN INFLUENZA VIRUS VAC CPT-4: G0008 12/26/2018 COMPREHEN METABOLIC PANEL CPT-4: 40156 12/15/2018 ROUTINE VENIPUNCTURE CPT-4: 22993 12/15/2018 ROUTINE VENIPUNCTURE CPT-4: 60693 08/14/2018 ASSAY THYROID STIM HORMONE CPT-4: 05574 08/14/2018 COMPREHEN METABOLIC PANEL CPT-4: 97951 08/14/2018 COMPLETE CBC W/AUTO DIFF WBC CPT-4: 70300 08/14/2018 URINALYSIS NONAUTO W/O SCOPE CPT-4: 12268 05/10/2018 URINE CULTURE/ COLONY COUNT CPT-4: 54603 05/10/2018 URINE CULTURE/ COLONY COUNT CPT-4: 82656 12/06/2017 ROUTINE VENIPUNCTURE CPT-4: 36960 11/30/2017 ASSAY OF FREE THYROXINE CPT-4: 35951 11/30/2017 ASSAY THYROID STIM HORMONE CPT-4: 16834 11/30/2017 COMPLETE CBC W/AUTO DIFF WBC CPT-4: 25693 11/30/2017 METABOLIC PANEL TOTAL CA CPT-4: 32834 11/30/2017 FLU VACC PRSV FREE INC ANTIG 65 AND OLDER CPT-4: 48163 11/22/2017 ASSAY, GLUCOSE, BLOOD QUANT CPT-4: 29226 11/22/2017 ADMIN INFLUENZA VIRUS VAC CPT-4: G0008 11/22/2017 ROUTINE VENIPUNCTURE CPT-4: 75034 09/27/2017 COMPREHEN METABOLIC PANEL CPT-4: 35718 09/27/2017 COMPLETE CBC W/AUTO DIFF WBC CPT-4: 72445 09/27/2017 A1C HPLC CPT-4: 33482 09/27/2017 ASSAY OF TROPONIN QUANT CPT-4: 33108 09/27/2017 LIPID PANEL CPT-4: 01865 09/27/2017 THER/PROPH/DIAG INJ SC/IM CPT-4: 74575 05/30/2017 TRIAMCINOLONE ACET INJ NOS CPT-4: J3301 05/30/2017 URINALYSIS NONAUTO W/O SCOPE CPT-4: 94999 04/18/2017 URINE CULTURE/ COLONY COUNT CPT-4: 39182 04/18/2017 FLU VACC PRSV FREE INC ANTIG 65 AND OLDER CPT-4: 98503 12/10/2016 ADMIN INFLUENZA VIRUS VAC CPT-4: G0008 12/10/2016 ROUTINE VENIPUNCTURE CPT-4: 63512 11/01/2016 COMPREHEN METABOLIC PANEL CPT-4: 12590 11/01/2016 COMPLETE CBC W/AUTO DIFF WBC CPT-4: 55976 11/01/2016 LIPID PANEL CPT-4: 37633 11/01/2016 A1C HPLC CPT-4: 65735 11/01/2016 ASSAY THYROID STIM HORMONE CPT-4: 85096 11/01/2016 ROUTINE VENIPUNCTURE CPT-4: 64959 05/13/2016 ASSAY THYROID STIM HORMONE CPT-4: 96365 05/13/2016 COMPREHEN METABOLIC PANEL CPT-4: 91313 05/13/2016 COMPLETE CBC W/AUTO DIFF WBC CPT-4: 43052 05/13/2016 A1C HPLC CPT-4: 85941 05/13/2016 FLU VACC PRSV FREE INC ANTIG 65 AND OLDER CPT-4: 76687 12/12/2015 ADMIN INFLUENZA VIRUS VAC CPT-4: G0008 12/12/2015 ROUTINE VENIPUNCTURE CPT-4: 25703 11/25/2015 ASSAY OF FREE THYROXINE CPT-4: 59019 11/25/2015 ASSAY THYROID STIM HORMONE CPT-4: 94095 11/25/2015 COMPREHEN METABOLIC PANEL CPT-4: 70911 11/25/2015 COMPLETE CBC W/AUTO DIFF WBC CPT-4: 78147 11/25/2015 LIPID PANEL CPT-4: 89124 11/25/2015 A1C HPLC CPT-4: 45506 11/25/2015 URINALYSIS NONAUTO W/O SCOPE CPT-4: 88476 05/21/2015 ROUTINE VENIPUNCTURE CPT-4: 35872 02/19/2015 METABOLIC PANEL TOTAL CA CPT-4: 06350 02/19/2015 PRESCRIP TRANSMIT VIA ERX SY CPT-4: G8553 02/19/2015 FLU VACC PRSV FREE INC ANTIG 65 AND OLDER CPT-4: 17519 12/20/2014 ADMIN INFLUENZA VIRUS VAC CPT-4: G0008 12/20/2014 URINALYSIS NONAUTO W/O SCOPE CPT-4: 39202 11/19/2014 URINE CULTURE/ COLONY COUNT CPT-4: 04399 11/19/2014 ROUTINE VENIPUNCTURE CPT-4: 60978 11/14/2014 ASSAY OF FREE THYROXINE CPT-4: 70532 11/14/2014 ASSAY THYROID STIM HORMONE CPT-4: 50844 11/14/2014 COMPREHEN METABOLIC PANEL CPT-4: 69035 11/14/2014 COMPLETE CBC W/AUTO DIFF WBC CPT-4: 78849 11/14/2014 LIPID PANEL CPT-4: 56476 11/14/2014 A1C HPLC CPT-4: 81122 11/14/2014 CERUM REMOVAL CPT-4: 95552 09/27/2014 PRESCRIP TRANSMIT VIA ERX SY CPT-4: G8553 07/11/2014 FLUZONE, 5ML (Medicare) CPT-4: Q2038 12/21/2013 ADMIN INFLUENZA VIRUS VAC CPT-4: G0008 12/21/2013 PRESCRIP TRANSMIT VIA ERX SY CPT-4: G8553 10/17/2013 PRESCRIP TRANSMIT VIA ERX SY CPT-4: G8553 09/24/2013 PRESCRIP TRANSMIT VIA ERX SY CPT-4: G8553 05/31/2013 ROUTINE VENIPUNCTURE CPT-4: 99560 03/28/2013 ASSAY OF FREE THYROXINE CPT-4: 86560 03/28/2013 ASSAY THYROID STIM HORMONE CPT-4: 81347 03/28/2013 COMPREHEN METABOLIC PANEL CPT-4: 84171 03/28/2013 COMPLETE CBC W/AUTO DIFF WBC CPT-4: 20430 03/28/2013 LIPID PANEL CPT-4: 31027 03/28/2013 A1C HPLC CPT-4: 73707 03/28/2013 VITAMIN B 12 FOLIC ACID CPT-4: 30576|86136 03/28/2013 PRESCRIP TRANSMIT VIA ERX SY CPT-4: G8553 03/26/2013 PRESCRIP TRANSMIT VIA ERX SY CPT-4: G8553 12/19/2012 FLUZONE, 5ML (Medicare) CPT-4: Q2038 11/27/2012 ADMIN INFLUENZA VIRUS VAC CPT-4: G0008 11/27/2012 PRESCRIP TRANSMIT VIA ERX SY CPT-4: G8553 10/04/2012 PRESCRIP TRANSMIT VIA ERX SY CPT-4: G8553 07/14/2012 ROUTINE VENIPUNCTURE CPT-4: 77409 02/23/2012 ASSAY OF FREE THYROXINE CPT-4: 46462 02/23/2012 ASSAY THYROID STIM HORMONE CPT-4: 60576 02/23/2012 COMPREHEN METABOLIC PANEL CPT-4: 17034 02/23/2012 COMPLETE CBC W/AUTO DIFF WBC CPT-4: 48685 02/23/2012 LIPID PANEL CPT-4: 16976 02/23/2012 A1C GLYCOSYLATED HEMOGLOBIN TEST CPT-4: 02293 012 CERUM REMOVAL CPT-4: 54210 02/22/2012 PRESCRIP TRANSMIT VIA ERX SY CPT-4: G8553 02/22/2012 PRESCRIP TRANSMIT VIA ERX SY CPT-4: G8553 12/15/2011 FLUZONE, 5ML (Medicare) CPT-4: Q2038 12/02/2011 ADMIN INFLUENZA VIRUS VAC CPT-4: G0008 12/02/2011 ASSAY, GLUCOSE, BLOOD QUANT CPT-4: 08717 09/21/2011 URINALYSIS NONAUTO W/O SCOPE CPT-4: 63778 09/16/2011 URINE CULTURE/ COLONY COUNT CPT-4: 75811 09/16/2011 ROUTINE VENIPUNCTURE CPT-4: 95688 09/15/2011 ASSAY OF FREE THYROXINE CPT-4: 24642 09/15/2011 ASSAY THYROID STIM HORMONE CPT-4: 61678 09/15/2011 COMPREHEN METABOLIC PANEL CPT-4: 28913 09/15/2011 COMPLETE CBC W/AUTO DIFF WBC CPT-4: 34569 09/15/2011 LIPID PANEL CPT-4: 76014 09/15/2011 ASSAY OF INSULIN CPT-4: 47477 09/15/2011 A1C GLYCOSYLATED HEMOGLOBIN TEST CPT-4: 47762 012 DRAIN/INJECT JOINT/BURSA CPT-4: 41639 08/16/2011 METHYLPREDNISOLONE 40 MG INJ CPT-4: J1030 08/16/2011 TRIAMCINOLONE ACET INJ NOS CPT-4: J3301 08/16/2011 PRESCRIP TRANSMIT VIA ERX SY CPT-4: G8553 08/03/2011 PRESCRIP TRANSMIT VIA ERX SY CPT-4: G8553 07/26/2011 METHYLPREDNISOLONE 40 MG INJ CPT-4: J1030 06/28/2011 DRAIN/INJECT JOINT/BURSA CPT-4: 03094 06/28/2011 TRIAMCINOLONE ACET INJ NOS CPT-4: J3301 06/28/2011 PRESCRIP TRANSMIT VIA ERX SY CPT-4: G8553 06/28/2011 ROUTINE VENIPUNCTURE CPT-4: 02874 04/01/2011 ASSAY OF FREE THYROXINE CPT-4: 82598 04/01/2011 ASSAY THYROID STIM HORMONE CPT-4: 91026 04/01/2011 COMPREHEN METABOLIC PANEL CPT-4: 12299 04/01/2011 COMPLETE CBC W/AUTO DIFF WBC CPT-4: 50011 04/01/2011 LIPID PANEL CPT-4: 22672 04/01/2011 PRESCRIP TRANSMIT VIA ERX SY CPT-4: G8553 03/31/2011 CERUM REMOVAL CPT-4: 92655 02/11/2011 PRESCRIP TRANSMIT VIA ERX SY CPT-4: G8553 02/11/2011 FLUZONE, 5ML (Medicare) CPT-4: Q2038 12/09/2010 ADMIN INFLUENZA VIRUS VAC CPT-4: G0008 12/09/2010 PRESCRIP TRANSMIT VIA ERX SY CPT-4: G8553 10/15/2010 URINALYSIS NONAUTO W/O SCOPE CPT-4: 36120 09/29/2010 URINE CULTURE/ COLONY COUNT CPT-4: 56612 09/29/2010 CUR TOBACCO NON-USER CPT-4: G8457 09/29/2010 ROUTINE VENIPUNCTURE CPT-4: 90223 07/06/2010 COMPLETE CBC W/AUTO DIFF WBC CPT-4: 83270 07/06/2010 COMPREHEN METABOLIC PANEL CPT-4: 28469 07/06/2010 LIPID PANEL CPT-4: 27698 07/06/2010 ASSAY THYROID STIM HORMONE CPT-4: 26862 07/06/2010 ASSAY OF FREE THYROXINE CPT-4: 12621 07/06/2010 PRESCRIP TRANSMIT VIA ERX SY CPT-4: G8553 07/02/2010 INJ TRIGGER POINT 1/2 MUSCL CPT-4: 49384 04/06/2010 TRIAMCINOLONE ACET INJ NOS CPT-4: J3301 04/06/2010 METHYLPREDNISOLONE 40 MG INJ CPT-4: J1030 04/06/2010 THER/PROPH/DIAG INJ SC/IM CPT-4: 46807 04/01/2010 KETOROLAC TROMETHAMINE INJ CPT-4: J1885 04/01/2010 PRESCRIP TRANSMIT VIA ERX SY CPT-4: G8553 01/22/2010 FLU VACCINE 3 YRS & > IM UP 64 CPT-4: 90184 0 ADMIN INFLUENZA VIRUS VAC CPT-4: G0008 12/10/2009 URINALYSIS NONAUTO W/O SCOPE CPT-4: 21228 12/02/2009 URINE CULTURE/ COLONY COUNT CPT-4: 90898 12/02/2009 PRESCRIP TRANSMIT VIA ERX SY CPT-4: G8553 12/02/2009 THER/PROPH/DIAG INJ SC/IM CPT-4: 87686 09/10/2009 VITAMIN B12 INJECTION CPT-4: J3420 09/10/2009 THER/PROPH/DIAG INJ SC/IM CPT-4: 33744 08/11/2009 VITAMIN B12 INJECTION CPT-4: J3420 08/11/2009 ROUTINE VENIPUNCTURE CPT-4: 88408 06/10/2009 Vital Signs Date Vital 03/20/2019 Blood [...] 1: 142/60 Code: 8480-6 BMI: 38.2 Code: 90982-3 Heart Rate 1: 48 bpm Height: 5'2" Respiratory Rate: 20 bpm SpO2: 98% Tempera ture: 36.7 (C) / 98.1 (F) Weight: 212 lbs 01/10/2018 Blood Pressure 1: 142/64 Code: 8480-6 BMI: 38.5 Code: 24996-6 Heart Rate 1: 52 bpm Height: 5'2" Respiratory Rate: 22 bpm SpO2: 96% Tempera ture: 36.1 (C) / 96.9 (F) Weight: 214 lbs 12/06/2017 Blood Pressure 1: 124/80 Code: 8480-6 BMI: 38.3 Code: 69099-7 Heart Rate 1: 68 bpm Height: 5'2" Respiratory Rate: 20 bpm Temperature: 36 .3 (C) / 97.4 (F) Weight: 213 lbs 11/22/2017 Blood Pressure 1: 132/78 Code: 8480-6 BMI: 37.6 Code: 81449-5 Heart Rate 1: 68 bpm Height: 5'2" Respiratory Rate: 20 bpm SpO2: 97% Tempera ture: 36.8 (C) / 98.2 (F) Weight: 209 lbs 10/20/2017 Blood Pressure 1: 150/76 Code: 8480-6 BMI: 38.5 Code: 32808-8 Heart Rate 1: 64 bpm Height: 5'2" Respiratory Rate: 20 bpm SpO2: 97% Tempera ture: 36.2 (C) / 97.2 (F) Weight: 214 lbs 09/27/2017 Blood Pressure 1: 122/74 Code: 8480-6 BMI: 38.2 Code: 94925-1 Heart Rate 1: 64 bpm Height: 5'2" Respiratory Rate: 18 bpm SpO2: 96% Tempera ture: 35.8 (C) / 96.4 (F) Weight: 212 lbs 08/16/2017 Blood Pressure 1: 124/78 Code: 8480-6 BMI: 37.8 Code: 50676-0 Heart Rate 1: 76 bpm Height: 5'2" Respiratory Rate: 20 bpm Temperature: 36 .8 (C) / 98.3 (F) Weight: 210 lbs 07/07/2017 Blood Pressure 1: 136/70 Code: 8480-6 BMI: 38.0 Code: 47490-1 Heart Rate 1: 68 bpm Height: 5'2" Respiratory Rate: 20 bpm SpO2: 97% Tempera ture: 36.8 (C) / 98.2 (F) Weight: 211 lbs 05/30/2017 Blood Pressure 1: 140/65 Code: 8480-6 Heart Rate 1: 75 bpm Respiratory Rate: 24 bpm SpO2: 95% Temperature: 37.0 (C) / 98.6 (F) We ight: 211 lbs 04/18/2017 Blood Pressure 1: 154/70 Code: 8480-6 BMI: 37.6 Code: 93567-4 Heart Rate 1: 76 bpm Height: 5'2" Respiratory Rate: 20 bpm SpO2: 98% Tempera ture: 36.9 (C) / 98.5 (F) Weight: 209 lbs 10/25/2016 Blood Pressure 1: 156/70 Code: 8480-6 BMI: 37.1 Code: 83013-7 Heart Rate 1: 72 bpm Height: 5'2" Respiratory Rate: 20 bpm SpO2: 97% Tempera ture: 37.0 (C) / 98.6 (F) Weight: 206 lbs 09/20/2016 Blood Pressure 1: 152/78 Code: 8480-6 BMI: 36.8 Code: 42255-5 Heart Rate 1: 78 bpm Height: 5'2" Respiratory Rate: 20 bpm SpO2: 98% Tempera ture: 36.1 (C) / 97.0 (F) Weight: 204 lbs 05/12/2016 Blood Pressure 1: 142/70 Code: 8480-6 BMI: 36.9 Code: 08538-0 Heart Rate 1: 64 bpm Height: 5'2" [...] 1: 122/64 Code: 8480-6 BMI: 39.1 Code: 90194-5 Heart Rate 1: 76 bpm Height: 5'2" Respiratory Rate: 20 bpm Temperature: 36 .8 (C) / 98.2 (F) Weight: 217 lbs 05/21/2015 Blood Pressure 1: 144/70 Code: 8480-6 BMI: 39.4 Code: 42677-2 Heart Rate 1: 76 bpm Height: 5'2" Respiratory Rate: 20 bpm Temperature: 36 .6 (C) / 97.9 (F) Weight: 219 lbs 02/19/2015 Blood Pressure 1: 152/60 Code: 8480-6 BMI: 39.6 Code: 74648-2 Heart Rate 1: 84 bpm Height: 5'2" Respiratory Rate: 20 bpm Temperature: 37 .0 (C) / 98.6 (F) Weight: 220 lbs 11/13/2014 Blood Pressure 1: 146/76 Code: 8480-6 BMI: 39.8 Code: 54331-0 Heart Rate 1: 88 bpm Height: 5'2" Respiratory Rate: 20 bpm Temperature: 37 .0 (C) / 98.6 (F) Weight: 221 lbs 09/27/2014 Blood Pressure 1: 132/70 Code: 8480-6 BMI: 39.1 Code: 90109-4 Heart Rate 1: 88 bpm Height: 5'2" Respiratory Rate: 20 bpm Temperature: 36 .4 (C) / 97.6 (F) Weight: 217 lbs 07/11/2014 Blood Pressure 1: 132/66 Code: 8480-6 BMI: 39.9 Code: 31895-4 Heart Rate 1: 72 bpm Height: 5'2" Respiratory Rate: 20 bpm Temperature: 36 .9 (C) / 98.4 (F) Weight: 218 lbs 05/23/2014 Blood Pressure 1: 136/80 Code: 8480-6 Heart Rate 1: 76 bpm Respiratory Rate: 20 bpm Temperature: 36.7 (C) / 98.0 (F) Weight: 224 lbs 03/20/2014 Blood Pressure 1: 134/78 Code: 8480-6 BMI: 39.7 Code: 42498-9 Heart Rate 1: 84 bpm Height: 5'2" Respiratory Rate: 20 bpm Temperature: 36 .7 (C) / 98.0 (F) Weight: 217 lbs 10/17/2013 Blood Pressure 1: 146/78 Code: 8480-6 BMI: 39.5 Code: 06375-8 Heart Rate 1: 82 bpm Height: 5'2" Respiratory Rate: 18 bpm Temperature: 35 .6 (C) / 96.1 (F) Weight: 216 lbs 09/24/2013 Blood Pressure 1: 134/70 Code: 8480-6 BMI: 37.9 Code: 32376-5 Heart Rate 1: 80 bpm Height: 5'3" Respiratory Rate: 20 bpm Temperature: 36 .8 (C) / 98.2 (F) Weight: 214 lbs 05/31/2013 Blood Pressure 1: 132/70 Code: 8480-6 BMI: 37.6 Code: 07179-6 Heart Rate 1: 80 bpm Height: 5'3" Respiratory Rate: 20 bpm Temperature: 36 .8 (C) / 98.3 (F) Weight: 212 lbs 03/26/2013 Blood Pressure 1: 116/74 Code: 8480-6 Heart Rate 1: 68 bpm Respiratory Rate: 20 bpm Temperature: 36.2 (C) / 97.1 (F) Weight: 212 lbs 12/19/2012 Blood Pressure 1: 132/82 Code: 8480-6 BMI: 37.4 Code: 14890-9 Heart Rate 1: 76 bpm Height: 5'3" Respiratory Rate: 20 bpm Temperature: 36 .7 (C) / 98.0 (F) Weight: 211 lbs 12/04/2012 Blood Pressure 1: 130/76 Code: 8480-6 He art Rate 1: 78 bpm 11/27/2012 Blood Pressure 1: 140/82 Code: 8480-6 BMI: 36.8 Code: 63890-8 Heart Rate 1: 66 bpm Height: 5'3" Respiratory Rate: 20 bpm Temperature: 36 .1 (C) / 96.9 (F) Weight: 208 lbs 10/04/2012 Blood Pressure 1: 138/80 Code: 8480-6 BMI: 36.4 Code: 52834-1 Heart Rate 1: 72 bpm Height: 5'4" Respiratory Rate: 20 bpm Temperature: 36 .7 (C) / 98.0 (F) Weight: 212 lbs 07/27/2012 Blood Pressure 1: 124/70 Code: 8480-6 BMI: 36.9 Code: 68297-0 Heart Rate 1: 60 bpm Height: 5'4" Temperature: 36.1 (C) / 97.0 (F) Weight: 215 lbs 07/14/2012 Blood Pressure 1: 132/86 Code: 8480-6 BMI: 36.9 Code: 73413-6 Heart Rate 1: 76 bpm Height: 5'4" Respiratory Rate: 20 bpm Temperature: 36 .8 (C) / 98.2 (F) Weight: 215 lbs 06/08/2012 Blood Pressure 1: 134/82 Code: 8480-6 BMI: 36.6 Code: 01471-5 Heart Rate 1: 72 bpm Height: 5'4" Respiratory Rate: 20 bpm Temperature: 36 .3 (C) / 97.4 (F) Weight: 213 lbs 02/22/2012 Blood Pressure 1: 142/80 Code: 8480-6 BMI: 37.1 Code: 90755-1 Heart Rate 1: 76 bpm Height: 5'4" Respiratory Rate: 20 bpm Temperature: 36 .8 (C) / 98.3 (F) Weight: 216 lbs 12/28/2011 Blood Pressure 1: 128/68 Code: 8480-6 BMI: 37.6 Code: 21648-6 Heart Rate 1: 72 bpm Height: 5'4" [...] 1: 128/78 Code: 8480-6 BMI: 38.1 Code: 14459-1 Heart Rate 1: 84 bpm Height: 5'4" Respiratory Rate: 20 bpm Temperature: 36 .9 (C) / 98.4 (F) Weight: 222 lbs 08/16/2011 Blood Pressure 1: 138/80 Code: 8480-6 BMI: 37.9 Code: 70075-4 Heart Rate 1: 74 bpm Height: 5'4" Temperature: 36.1 (C) / 97.0 (F) Weight: 221 lbs 08/03/2011 Blood Pressure 1: 126/78 Code: 8480-6 BMI: 38.4 Code: 71001-5 Heart Rate 1: 72 bpm Height: 5'4" Respiratory Rate: 20 bpm Temperature: 36 .7 (C) / 98.0 (F) Weight: 224 lbs 07/26/2011 Blood Pressure 1: 138/72 Code: 8480-6 BMI: 38.4 Code: 63387-2 Heart Rate 1: 72 bpm Height: 5'4" Respiratory Rate: 20 bpm Temperature: 36 .6 (C) / 97.9 (F) Weight: 224 lbs 06/28/2011 Blood Pressure 1: 122/78 Code: 8480-6 BMI: 38.8 Code: 68889-9 Heart Rate 1: 88 bpm Height: 5'4" Respiratory Rate: 20 bpm Temperature: 36 .6 (C) / 97.8 (F) Weight: 226 lbs 03/31/2011 Blood Pressure 1: 116/60 Code: 8480-6 BMI: 38.1 Code: 06146-1 Heart Rate 1: 92 bpm Height: 5'4" Respiratory Rate: 20 bpm Temperature: 36 .8 (C) / 98.2 (F) Weight: 222 lbs 02/11/2011 Blood Pressure 1: 118/62 Code: 8480-6 BMI: 37.9 Code: 69498-5 Heart Rate 1: 80 bpm Height: 5'4" Temperature: 36.5 (C) / 97.7 (F) Weight: 221 lbs 10/15/2010 Blood Pressure 1: 132/70 Code: 8480-6 Heart Rate 1: 84 bpm Respiratory Rate: 20 bpm Temperature: 36.7 (C) / 98.0 (F) Weight: 221 lbs 09/29/2010 Blood Pressure 1: 114/72 Code: 8480-6 BMI: 37.6 Code: 06393-4 Heart Rate 1: 76 bpm Height: 5'4" [...] 1: 120/70 Code: 8480-6 BMI: 38.3 Code: 56832-9 Heart Rate 1: 88 bpm Height: 5'5" [...] 09/27/2014 pain, limb 07/11/2014 follow up 05/23/2014 [facility] high blood pressure 03/20/2014 injection(s) 12/21/2013 flu [...] I10] Diagnosis: Palpitations[ICD10: R00.2] Vikki AMADOR CPT-4: 49841 03/20/2019 ([id number]) OFFICE/OUTPATIENT VISIT EST Diagnosis: Essential hypertension[ICD10: I10] Diagnosis: Palpitations[ICD10: R00.2] Diagnosis: Stress reaction[ICD10: F43.0] Vikki GUAMAN DO [facility] CPT-4: 12613 03/13/2019 ([id number]) NURSE/OUTPATIENT VISIT EST Diagnosis: Mixed hyperlipidemia[ICD10: E78.2] Vikki GUAMAN DO [facility] CPT-4: 20024 01/23/2019 ([id number]) NURSE/OUTPATIENT VISIT EST Diagnosis: FLU VACCINE[ICD10: Z23] Vikki BALL DO [facility] CPT-4: 99367 12/26/2018 ([id number]) NURSE/OUTPATIENT VISIT EST Diagnosis: Chronic kidney disease, stage 1[ICD10: N18.1] Vikki GUAMAN DO [facility] CPT-4: 90574 12/15/2018 ([id number]) OFFICE/OUTPATIENT VISIT EST Diagnosis: Acute serous otitis media, left ear[ICD10: H65.02] Jennifer GUAMAN DO [facility] CPT-4: 67605 11/07/2018 ([id number]) OFFICE/OUTPATIENT VISIT EST Diagnosis: Essential (primary) hypertension[ICD10: I10] Diagnosis: 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] Diagnosis: Hypoglycemia, unspecified[ICD10: E16.2] Diagnosis: Other fatigue[ICD10: R53.83] Diagnosis: Urinary tract infection, site not specified[ICD10: N39.0] Vikki GUAMAN DO [facility] CPT-4: 42525 08/14/2018 ([id number]) OFFICE/OUTPATIENT VISIT EST Diagnosis: Essential (primary) hypertension[ICD10: I10] Diagnosis: Gastro-esophageal reflux disease without esophagitis[ICD10: K21.9] Diagnosis: Urinary tract infection, site not specified[ICD10: N39.0] Vikki GUAMAN DO [facility] CPT-4: 18179 05/10/2018 ([id number]) OFFICE/OUTPATIENT VISIT EST Diagnosis: Gastro-esophageal reflux disease without esophagitis[ICD10: K21.9] Diagnosis: Epigastric pain[ICD10: R10.13] Vikki GUAMAN DO [facility] CPT-4: 49778 02/14/2018 ([id number]) OFFICE/OUTPATIENT VISIT EST Diagnosis: 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] Diagnosis: Essential (primary) hypertension[ICD10: I10] Diagnosis: Generalized anxiety disorder[ICD10: F41.1] Diagnosis: Gastro-esophageal reflux disease without esophagitis[ICD10: K21.9] Vikki GUAMAN [facility] CPT-4: 10125 01/10/2018 OFFICE/OUTPATIENT VISIT EST Diagnosis: Gastro-esophageal reflux disease without esophagitis[ICD10: K21.9] Diagnosis: Palpitations[ICD10: R00.2] Diagnosis: Urinary tract infection, site not specified[ICD10: N39.0] Diagnosis: Generalized anxiety disorder[ICD10: F41.1] Vikki GUAMAN [facility] CPT-4: 66713 12/06/2017 ([id number]) NURSE/OUTPATIENT VISIT EST Diagnosis: 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] Diagnosis: Hypoglycemia, unspecified[ICD10: E16.2] Diagnosis: Dizziness and giddiness[ICD10: R42] Diagnosis: Occlusion and stenosis of bilateral carotid arteries[ICD10: I65.23] Vikki GUAMAN [facility] CPT-4: 80011 11/30/2017 OFFICE/OUTPATIENT VISIT EST Diagnosis: Epigastric pain[ICD10: R10.13] Diagnosis: Generalized anxiety disorder[ICD10: F41.1] Diagnosis: FLU VACCINE[ICD10: Z23] Vikki CID [facility] CPT-4: 36960 11/22/2017 ([id number]) OFFICE/OUTPATIENT VISIT EST Diagnosis: Essential (primary) hypertension[ICD10: I10] Diagnosis: Hypoglycemia, unspecified[ICD10: E16.2] Diagnosis: Gastro-esophageal reflux disease without esophagitis[ICD10: K21.9] Vikki GUAMAN [facility] CPT-4: 64186 10/20/2017 ([id number]) OFFICE/OUTPATIENT VISIT EST Diagnosis: Dizziness and giddiness[ICD10: R42] Jennifer GUAMAN [employer] [facility] CPT-4: 87667 09/27/2017 ([id number]) OFFICE/OUTPATIENT VISIT EST Diagnosis: Cervicalgia[ICD10: M54.2] Diagnosis: Other spondylosis with radiculopathy, cervical region[ICD10: M47.22] Vikki GUAMAN [facility] CPT-4: 90982 08/16/2017 ([id number]) OFFICE/OUTPATIENT VISIT EST Diagnosis: Hypoglycemia, unspecified[ICD10: E16.2] Diagnosis: Other spondylosis with radiculopathy, cervical region[ICD10: M47.22] Diagnosis: Vertigo of central origin, 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] Diagnosis: 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] Vikki Deniz GUAMAN [employer] [facility] CPT-4: 98696 07/07/2017 ([id number]) OFFICE/OUTPATIENT VISIT EST Diagnosis: Benign paroxysmal vertigo, bilateral[ICD10: H81.13] Diagnosis: Otalgia, bilateral[ICD10: H92.03] Jennifer GUAMAN [employer] [facility] CPT-4: 66860 05/30/2017 ([id number]) OFFICE/OUTPATIENT VISIT EST Diagnosis: Low back pain[ICD10: M54.5] Diagnosis: Radiculopathy, lumbosacral region[ICD10: M54.17] Diagnosis: Left lower quadrant pain[ICD10: R10.32] Vikki CRISOSTOMO Alyssa CID [employer] [facility] CPT-4: 80543 04/18/2017 ([id number]) OFFICE/OUTPATIENT VISIT EST Diagnosis: FLU VACCINE[ICD10: Z23] Vikki Ciscobhavya KEARNEYVIKKI Alyssa BALL [employer] [facility] CPT-4: 19363 12/10/2016 ([id number]) OFFICE/OUTPATIENT VISIT EST Diagnosis: Mixed hyperlipidemia[ICD10: E78.2] Diagnosis: Essential (primary) hypertension[ICD10: I10] Diagnosis: 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] Diagnosis: Impaired fasting glucose[ICD10: R73.01] Diagnosis: Other fatigue[ICD10: R53.83] Vikki GUAMAN DO [facility] CPT-4: 52886 11/01/2016 ([id number]) OFFICE/OUTPATIENT VISIT EST Diagnosis: Pain in thoracic spine[ICD10: M54.6] Diagnosis: Other intervertebral disc degeneration, 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] Vikki GUAMAN DO [facility] CPT-4: 34982 10/25/2016 ([id number]) OFFICE/OUTPATIENT VISIT EST Diagnosis: Left lower quadrant pain[ICD10: R10.32] Diagnosis: Low back pain[ICD10: M54.5] Vikki CORTEZLINE Alyssa RUBI DO [facility] CPT-4: 26096 09/20/2016 ([id number]) OFFICE/OUTPATIENT VISIT EST Diagnosis: Mixed hyperlipidemia[ICD10: E78.2] Diagnosis: Essential (primary) hypertension[ICD10: I10] Diagnosis: Hypoglycemia, unspecified[ICD10: E16.2] Vikki GUAMAN [facility] CPT-4: 74931 05/13/2016 ([id number]) OFFICE/OUTPATIENT VISIT EST Diagnosis: Impaired fasting glucose[ICD10: R73.01] Diagnosis: Mastodynia[ICD10: N64.4] Diagnosis: Mixed hyperlipidemia[ICD10: E78.2] Diagnosis: Essential (primary) hypertension[ICD10: I10] Diagnosis: Other fatigue[ICD10: R53.83] Vikki Ciscofunmilayosakshi CORTEZVIKKI AlejandraSujata DENIZ [facility] CPT-4: 15536 05/12/2016 ([id number]) OFFICE/OUTPATIENT VISIT EST Diagnosis: Acute upper respiratory infection, unspecified[ICD10: J06.9] Yue CORTEZLINE Alyssa GUAMAN DO [facility] CPT-4: 43880 03/18/2016 ([id number]) OFFICE/OUTPATIENT VISIT EST Diagnosis: Acute mastoiditis without complications, right ear[ICD10: H70.001] Vikkiluther KEARNEYQUELINE AlejandraSujata DENIZ CHIN [facility] CPT-4: 21002 02/06/2016 ([id number]) OFFICE/OUTPATIENT VISIT EST Diagnosis: FLU VACCINE[ICD10: Z23] Vikki PIKE AlejandraSujata PALAK BALL [facility] CPT-4: 50668 12/12/2015 ([id number]) OFFICE/OUTPATIENT VISIT EST Diagnosis: Mixed hyperlipidemia[ICD10: E78.2] Diagnosis: Essential (primary) hypertension[ICD10: I10] Diagnosis: 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] Diagnosis: Impaired fasting glucose[ICD10: R73.01] Vikki GUAMAN [facility] CPT-4: 98153 11/25/2015 ([id number]) OFFICE/OUTPATIENT VISIT EST Diagnosis: Constipation, unspecified[ICD10: K59.00] Vikki GUAMAN [facility] CPT-4: 18137 08/26/2015 ([id number]) OFFICE/OUTPATIENT VISIT EST Diagnosis: Essential (primary) hypertension[ICD10: I10] Diagnosis: Mixed hyperlipidemia[ICD10: E78.2] Diagnosis: Chronic kidney disease, stage 1[ICD10: N18.1] Vikki GUAMAN [facility] CPT-4: 05278 05/21/2015 ([id number]) OFFICE/OUTPATIENT VISIT EST Diagnosis: Muscle weakness (generalized)[ICD10: M62.81] Diagnosis: Dizziness and giddiness[ICD10: R42] Diagnosis: Essential (primary) hypertension[ICD10: I10] Diagnosis: History of falling[ICD10: Z91.81] Vikki Peckfunmilayosakshi GUAMAN [facility] CPT-4: 59866 02/19/2015 ([id number]) OFFICE/OUTPATIENT VISIT EST Diagnosis: FLU VACCINE[ICD10: Z23] Vikki BALL [facility] CPT-4: 62662 12/20/2014 ([id number]) OFFICE/OUTPATIENT VISIT EST Diagnosis: Acute renal failure[ICD9: 584.9] Diagnosis: POLYURIA[ICD9: 788.42] Vikki Rees [facility] CPT-4: 61735 11/19/2014 ([id number]) OFFICE/OUTPATIENT VISIT EST Diagnosis: HYPERLIPIDEMIA NEC/NOS[ICD9: 272.4] Diagnosis: HYPERTENSION[ICD9: 401.9] Diagnosis: CAD[ICD9: 414.00] Diagnosis: Hyperglycemia[ICD9: 790.29] Diagnosis: MALAISE AND FATIGUE[ICD9: 780.79] Vikki GUAMAN DO [facility] CPT-4: 80111 11/14/2014 ([id number]) OFFICE/OUTPATIENT VISIT EST Diagnosis: MALAISE AND FATIGUE[ICD9: 780.79] Diagnosis: HYPOGLYCEMIA[ICD9: 251.2] Diagnosis: Grieving[ICD9: 309.0] Diagnosis: ABDOMINAL PAIN[ICD9: 789.00] Vikki GUAMAN DO [facility] CPT-4: 30877 11/13/2014 OFFICE/OUTPATIENT VISIT EST Diagnosis: CERUMEN IMPACTION[ICD9: 380.4] Diagnosis: EUSTACHIAN TUBE DYSFUNCTION[ICD9: 381.81] Jessenia EcheverriaShemargarito GUAMAN DO [facility] CPT-4: 99134 09/27/2014 ([id number]) OFFICE/OUTPATIENT VISIT EST Diagnosis: Leg pain[ICD9: 729.5] Diagnosis: SUPERFIC PHLEBITIS-LEG[ICD9: 451.0] Vikki GUAMAN [employer] [facility] CPT-4: 45707 07/11/2014 ([id number]) OFFICE/OUTPATIENT VISIT EST Diagnosis: Thoracic back pain[ICD9: 724.1] Diagnosis: SPASM OF MUSCLE[ICD9: 728.85] Vikki GUAMAN DO [facility] CPT-4: 22251 05/23/2014 ([id number]) OFFICE/OUTPATIENT VISIT EST Diagnosis: DIZZINESS/VERTIGO[ICD9: 780.4] Diagnosis: Benign positional vertigo[ICD9: 386.11] Diagnosis: HYPERTENSION[ICD9: 401.9] Diagnosis: Suspicious nevus[ICD9: 238.2] Vikki GUAMAN DO [facility] CPT-4: 56052 03/20/2014 ([id number]) OFFICE/OUTPATIENT VISIT EST Diagnosis: FLU VACCINE[ICD10: Z23] Vikki BALL DO [facility] CPT-4: 99975 12/21/2013 OFFICE/OUTPATIENT VISIT EST Diagnosis: SINUSITIS, ACUTE[ICD9: 461.9] Diagnosis: EUSTACHIAN TUBE DYSFUNCTION[ICD9: 381.81] Jessenia GUAMAN [facility] CPT-4: 32927 10/17/2013 ([id number]) OFFICE/OUTPATIENT VISIT EST Diagnosis: DIZZINESS/VERTIGO[ICD9: 780.4] Diagnosis: HYPERTENSION[ICD9: 401.9] Vikki PECK [facility] CPT-4: 77610 09/24/2013 ([id number]) OFFICE/OUTPATIENT VISIT EST Diagnosis: HYPERTENSION[ICD9: 401.9] Diagnosis: MALAISE AND FATIGUE[ICD9: 780.79] Diagnosis: SINUSITIS, ACUTE[ICD9: 461.9] [facility] 49670 05/31/2013 ([id number]) OFFICE/OUTPATIENT VISIT EST Diagnosis: HYPERLIPIDEMIA NEC/NOS[ICD9: 272.4] Diagnosis: HYPERTENSION[ICD9: 401.9] Diagnosis: B12 DEFIC ANEMIA NEC[ICD9: 281.1] Diagnosis: HYPOGLYCEMIA[ICD9: 251.2] Vikki PECK [facility] CPT-4: 25555 03/28/2013 OFFICE/OUTPATIENT VISIT EST Diagnosis: COUGH[ICD9: 786.2] Jessenia GUAMAN [facility] CPT-4: 51262 03/26/2013 OFFICE/OUTPATIENT VISIT EST Diagnosis: COUGH[ICD9: 786.2] Diagnosis: URI, ACUTE[ICD9: 465.9] Jessenia CID [facility] CPT-4: 28367 12/19/2012 ([id number]) OFFICE/OUTPATIENT VISIT EST Diagnosis: HYPERTENSION[ICD9: 401.9] Diagnosis: CEPHALGIA[ICD9: 784.0] Diagnosis: ANXIETY STATE NOS[ICD9: 300.00] Diagnosis: FLU VACCINE[ICD9: V04.81] [facility]: 39812 11/27/2012 ([id number]) OFFICE/OUTPATIENT VISIT EST Diagnosis: DIZZINESS/VERTIGO[ICD9: 780.4] Diagnosis: SINUSITIS, ACUTE[ICD9: 461.9] Diagnosis: Benign positional vertigo[ICD9: 386.11] Vikki Ciscobhavya KEARNEY CHILANGOLUTHER AlejandraSujata DENIZ [facility] CPT-4: 41529 10/04/2012 OFFICE/OUTPATIENT VISIT EST Diagnosis: OTITIS MEDIA NOS[ICD9: 382.9] Vikki Peckfunmilayosakshi CORTEZVIKKI AlejandraSujata DENIZ [facility] CPT-4: 88375 07/27/2012 OFFICE/OUTPATIENT VISIT EST Diagnosis: Perforation of ear drum[ICD9: 384.20] Diagnosis: SINUSITIS, ACUTE[ICD9: 461.9] Vikki Peckbhavya VIKKI AlejandraSujata DENIZ [facility] CPT-4: 89885 07/14/2012 ([id number]) OFFICE/OUTPATIENT VISIT EST Diagnosis: Mastalgia[ICD9: 611.71] Vikki Ciscobhavya VIKKI AlejandraSujata [facility] CPT-4: 36551 06/08/2012 ([id number]) OFFICE/OUTPATIENT VISIT EST Diagnosis: HYPERLIPIDEMIA NEC/NOS[ICD9: 272.4] Diagnosis: HYPERTENSION[ICD9: 401.9] Diagnosis: DIZZINESS/VERTIGO[ICD9: 780.4] Diagnosis: Hyperglycemia[ICD9: 790.29] Diagnosis: MALAISE AND FATIGUE[ICD9: 780.79] Vikkigabriel Conde AlejandraSujata DENIZ [facility] CPT-4: 40263 02/23/2012 ([id number]) OFFICE/OUTPATIENT VISIT EST Diagnosis: EUSTACHIAN TUBE DYSFUNCTION[ICD9: 381.81] Diagnosis: DIZZINESS/VERTIGO[ICD9: 780.4] Diagnosis: ABDOMINAL PAIN[ICD9: 789.00] Diagnosis: GERD[ICD9: 530.81] Diagnosis: CERUMEN IMPACTION[ICD9: 380.4] Vikki Ciscobhavya PIKE Alejandra Sujata DENIZ [facility] CPT-4: 78517 02/22/2012 OFFICE/OUTPATIENT VISIT EST Diagnosis: ABDOMINAL PAIN[ICD9: 789.00] Diagnosis: DYSPEPSIA[ICD9: 536.8] Vikki Shah CISCORUBI Rees [facility] CPT-4: 97058 12/28/2011 ([id number]) OFFICE/OUTPATIENT VISIT EST Diagnosis: ABDOMINAL PAIN[ICD9: 789.00] Diagnosis: DYSPEPSIA[ICD9: 536.8] Diagnosis: IBS[ICD9: 564.1] Vikki GUAMAN [facility] CPT - 4: 56102 12/15/2011 OFFICE/OUTPATIENT VISIT EST Diagnosis: DIZZINESS/VERTIGO[ICD9: 780.4] Diagnosis: HYPOGLYCEMIA[ICD9: 251.2] Vikki MARTINEZ [facility] CPT-4: 66988 09/21/2011 ([id number]) OFFICE/OUTPATIENT VISIT EST Diagnosis: URINARY TRACT INFECTION[ICD9: 599.0] Vikki GUAMAN [facility] CPT-4: 11169 09/16/2011 ([id number]) OFFICE/OUTPATIENT VISIT EST Diagnosis: HYPERLIPIDEMIA NEC/NOS[ICD9: 272.4] Diagnosis: HYPERTENSION[ICD9: 401.9] Diagnosis: MALAISE AND FATIGUE[ICD9: 780.79] Diagnosis: DIZZINESS/VERTIGO[ICD9: 780.4] Vikki GUAMAN [facility] CPT-4: 81766 09/15/2011 ([id number]) OFFICE/OUTPATIENT VISIT EST Diagnosis: DIZZINESS/VERTIGO[ICD9: 780.4] Diagnosis: MALAISE AND FATIGUE[ICD9: 780.79] Diagnosis: HYPERTENSION[ICD9: 401.9] Vikki MARTINEZ [facility] CPT-4: 33208 09/13/2011 OFFICE/OUTPATIENT VISIT EST Diagnosis: LUMB/LUMBOSAC DISC DEGEN[ICD9: 722.52] Diagnosis: Radiculopathy of leg[ICD9: 724.4] Diagnosis: 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] Diagnosis: SPINAL ENTHESOPATHY[ICD9: 720.1] Vikki GUAMAN [facility] CPT-4: 53639 08/16/2011 ([id number]) OFFICE/OUTPATIENT VISIT EST Diagnosis: PAIN, LOWER BACK[ICD9: 724.2] Diagnosis: SPASM OF MUSCLE[ICD9: 728.85] Diagnosis: SCIATICA[ICD9: 724.3] Diagnosis: Lumbar degenerative disc disease[ICD9: 722.52] Vikki GUAMAN DO [facility] CPT-4: 63866 08/03/2011 ([id number]) OFFICE/OUTPATIENT VISIT EST Diagnosis: PAIN IN THORACIC SPINE[ICD9: 724.1] Diagnosis: SPASM OF MUSCLE[ICD9: 728.85] Vikki GUAMAN DO [facility] CPT-4: 26067 07/26/2011 ([id number]) OFFICE/OUTPATIENT VISIT EST Diagnosis: PAIN, LOWER BACK[ICD9: 724.2] Diagnosis: SPASM OF MUSCLE[ICD9: 728.85] Diagnosis: Sacroiliac dysfunction[ICD9: 739.4] Diagnosis: Lumbar degenerative disc disease[ICD9: 722.52] Vikki GUAMAN DO [facility] CPT-4: 55496 06/28/2011 OFFICE/OUTPATIENT VISIT EST Diagnosis: MALAISE AND FATIGUE[ICD9: 780.79] Diagnosis: HYPOTENSION[ICD9: 458.9] Diagnosis: CAD[ICD9: 414.00] Vikki GUAMAN DO [facility] CPT-4: 18159 03/31/2011 OFFICE/OUTPATIENT VISIT EST Diagnosis: SINUSITIS, ACUTE[ICD9: 461.9] Diagnosis: PHARYNGITIS, ACUTE[ICD9: 462] Diagnosis: CERUMEN IMPACTION[ICD9: 380.4] Vikki GUAMAN DO [facility] CPT-4: 05647 02/11/2011 OFFICE/OUTPATIENT VISIT EST Diagnosis: PAIN IN THORACIC SPINE[ICD9: 724.1] Diagnosis: GERD[ICD9: 530.81] Diagnosis: DIZZINESS/VERTIGO[ICD9: 780.4] Vikki GUAMAN DO [facility] CPT-4: 51776 10/15/2010 OFFICE/OUTPATIENT VISIT EST Vikki MARTINEZ DO [facility] CPT- 4: 25230 09/29/2010 ([id number]) OFFICE/OUTPATIENT VISIT EST Vikki GUAMAN DO [facility] CPT-4: 04520 07/02/2010 ([id number]) OFFICE/OUTPATIENT VISIT, EST Diagnosis: PAIN, LOWER BACK[ICD9: 724.2] Vikki PIKE SSujata [facility] CPT-4: 17171 04/06/2010 ([id number]) OFFICE/OUTPATIENT VISIT, EST Vikki CRISOSTOMO S[facility] CPT-4: 15309 04/01/2010 ([id number]) OFFICE/OUTPATIENT VISIT, EST Vikki CRISOSTOMO [facility] CPT-4: 28461 01/22/2010 ([id number]) OFFICE/OUTPATIENT VISIT, EST Vikki KEELINE S. [facility] CPT-4: 64272 12/02/2009 ([id number]) OFFICE/OUTPATIENT VISIT, EST Vikki CRISOSTOMO [facility] CPT-4: 76669 10/21/2009 ([id number]) OFFICE/OUTPATIENT VISIT, EST Vikki CRISOSTOMO [facility] CPT-4: 90161 09/10/2009 ([id number]) OFFICE/OUTPATIENT VISIT, EST Vikki CRISOSTOMO [facility] CPT-4: 98531 08/11/2009 ([id number]) OFFICE/OUTPATIENT VISIT, EST Vikki CRISOSTOMO [facility] CPT-4: 30588 06/09/2009 Plan of Care Planned Activity Notes Codes Status Date Visit Diagnosis Plan: Essential (primary) hypertension Discussion: Improving with higher dose of metoprolol Recheck 2weeks ICD-9 : 401.9 ICD-10 : I10 03/20/2019 Visit Diagnosis Plan: Palpitations Discussion: Continu e higher dose of metoprolol ICD-9 : 785.1 ICD-10 : R00.2 03/20/2019 Appointment: [phone] [facility] 03/13/2019--moved up to 03/13/19 at 4pm (km) [place] NCEL[place] 03/15/2019 Visit Diagnosis Plan: Essential hypertension Discussio n: Increase metoprolol to 25mg q AM and 50mg po q pM Recheck 1 week ICD-9 : 401.9 ICD-10 : I10 03/13/2019 Visit Diagnosis Plan: Palpitations Discussion: Check C BC, CMP, TSH ICD-9 : 785.1 ICD-10 : R00.2 03/13/2019 Appointment: Vikki Guaman WPtel: [address] [place] [address] BP CHECK 03/13/2019 Appointment: Vikki Guaman WPtel: [address] [place] [address] ACUTE ILLNESS 03/13/2019 Patient Education: metoprolol tartrate- [employer] [facility] [id number] https://www.[employer]/samplemd/resources/getResource/61/[email or web address] Completed 03/13/2019 Care Plan: X-RAY EXAM NECK SPINE 4/5VWS LOINC : 11697-5 Pending 03/13/2019 Care Plan: X-RAY EXAM THORAC SPINE4/>VW LOINC : 12738-8 Pending 03/13/2019 Appointment: Vikki Guaman WPtel: [address] [place] [address] LAB 01/23/2019 Appointment: Vikki Guaman WPtel: [address] [place], [place] [phone] [place] INJECTION 12/26/2018 Patient Education: [facility] 2001 Completed 12/26/2018 Appointment: Vikki Guaman WPtel: [address] [place], [place] [phone] [place] LAB 12/15/2018 Visit Diagnosis Plan: Acute [...] ICD-10 : H65.02 11/07/2018 Appointment: Jennifer Rosario [address] [place], [place] [id number] ACUTE ILLNESS 11/07/2018 Visit Diagnosis Plan: Hypoglycemia, [...] : N39.0 08/14/2018 Appointment: Vikki Guaman WPtel: [address] [place], [place] [phone] US FOLLOW UP 08/14/2018 Visit Diagnosis Plan: [...] : I10 05/10/2018 Appointment: Vikki Guaman WPtel: [address] [place], [place] [address] [place] FOLLOW UP 05/10/2018 Patient Education: metoprolol tartrate- [employer] [facility] [id number] https://www.[facility].com/samplemd/resources/getResource/61/563r6e69-0nmu-[email or web address] Completed 05/10/2018 Appointment: Vikki Guaman WPtel: [address] [place], [place] [address] [place] CANCELED 04/21/2018 Visit Diagnosis Plan: Gastro-esophageal reflux disease without esophagitis Discussion: Continue protonix and carafate Proceed with updated EGD ICD-9 : 530.81 ICD-10 : K21.9 02/14/2018 Visit Diagnosis Plan: Epigastric pain Discussion: [facility] abdomen/pelvis due to ongoing abdominal pain ICD-9 : 789.06 ICD-10 : R10.13 02/14/2018 Appointment: Vikki Guaman WPtel: 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 US FOLLOW UP 01/10/2018 Visit [...] : 599.0 ICD-10 : N39.0 12/06/2017 Appointment: iVkki Guaman WPtel: [address] [place] [address] FOLLOW UP 12/06/2017 Patient Education: Patient Medication Summary Completed 12/06/2017 Appointment: Vikki Guaman WPtel: [address] [place] [address] LAB 11/30/2017 Patient Education: Patient Medication Summary [...] : R10.13 11/22/2017 Appointment: Vikki Guaman WPtel: [address] [place] [address] FOLLOW UP 11/22/2017 Patient Education: Patient Medication [...] K21.9 10/20/2017 Appointment: Vikki Guaman WPtel: [phone] ACUTE ILLNESS 10/20/2017 Patient Education: Patient Medication Summary Completed 10/20/2017 Visit Diagnosis Plan: Dizziness and giddiness Discussi on: blood work to be completed in office including cmp, cbc, troponin to rule out glucose intolerance, infection, dehydration. instructed patient that she needs to see her senior center director sooner than dec and patient requested we contact dr. brown's office. will have front office make appt. patient has carotid doppler annually. ICD-9 : 780.4 ICD-10 : R42 09/27/2017 Appointment: Jennifer Rosario [address] [place] [address] ACUTE ILLNESS 09/27/2017 Patient Education: Patient Medication Summary Completed 09/27/2017 Visit Diagnosis Plan: Cervicalgia Discussion: Complete course of PT since symptoms improved Continue stretching exercises Notify if symptoms return or worsen ICD-9 : 723.1 ICD-10 : M54.2 08/16/2017 Appointment: Vikki Guaman WPtel: [facility] [address] FOLLOW UP 08/16/2017 Patient Education: Patient [...] E16.2 07/07/2017 Appointment: Vikki Guaman WPtel: [phone] [facility] 07/07/2017 Patient Education: Patient Medication Summary Completed 07/07/2017 Care Plan: MRI NECK SPINE W/O DYE [facility] : 96823-2 Pending 07/07/2017 Visit Diagnosis Plan: Benign paroxysmal [...] ICD-10 : H92.03 05/30/2017 Appointment: Jennifer Rosario [address] [place] [address] ACUTE ILLNESS 05/30/2017 Patient Education: Patient Medication [...] : R10.32 04/18/2017 Appointment: Vikki Guaman WPtel: [address] [place] [address] ACUTE ILLNESS 04/18/2017 Patient Education: Patient Medication Summary Completed 04/18/2017 Appointment: Vikki Guaman WPtel: [address] [place] [address] US INJECTION 12/10/2016 Patient Education: Patient Medication Summary Completed 12/10/2016 Appointment: Vikki Guaman WPtel: [address] [place], [place] [phone] [place] LAB 11/01/2016 Patient Education: Patient Medication [...] : M54.6 10/25/2016 Appointment: Vikki Guaman WPtel: [address] [place], [place] [phone] FOLLOW UP 10/25/2016 Patient Education: Patient Medication [...] : M54.5 09/20/2016 Appointment: Vikki Guaman WPtel: [address] [place], [place] [phone] ACUTE ILLNESS 09/20/2016 Patient Education: Patient Medication Summary Completed 09/20/2016 Appointment: Vikki Guaman WPtel: [address] [place], [place] [phone] [place] LAB 05/13/2016 Patient Education: Patient Medication [...] ICD-10 : R53.83 05/12/2016 Appointment: Vikki Guamantel: [address] [place] [address] 3/ confirmed `sl ACUTE ILLNESS 05/12/2016 Patient Education: Patient Medication Summary Completed 05/12/2016 Care Plan: MAMMOGRAM SCREENING LOINC : 2 6347-5 Pending 05/12/2016 Visit Diagnosis Plan: Acute upper respiratory infectio n, unspecified Discussion: Exam is reassuring Likely viral illness Supportive care reviewed and encouraged Follow up PRN ICD-9 : 465.9 ICD-10 : J06.9 03/18/2016 Appointment: Yue Moya [address] [place] [address] ACUTE ILLNESS 03/18/2016 Patient Education: Patient Medication Summary Completed 03/18/2016 Visit Plan: Supportive care. Rest, Fluid s, Tylenol/Motrin prn fever or bodyaches. Notify if worsening symptoms. 02/06/2016 Appointment: Vikki Guamantel: [address] [place] [address] ACUTE ILLNESS 02/06/2016 Patient Education: Patient Medication Summary Completed 02/06/2016 Appointment: Vikki Guaman WPtel: [address] [place] [address] US INJECTION 12/12/2015 Patient Education: Patient Medication Summary Completed 12/12/2015 Appointment: Vikki Guaman WPtel: [address] [place] [address] LAB 11/25/2015 Patient Education: Patient Medication Summary Completed 11/25/2015 Visit Plan: Add miralax daily Use daily probiotic and metamucil and push fluids Notify if worsens/persists 08/26/2015 Appointment: Vikki Guaman WPtel: [phone] [facility] 08/25/15 confirmed ~sl ACUTE ILLNESS 08/26/2015 Patient Education: Patient Medication Summary Completed 08/26/2015 Visit Plan: No NSAIDs Kidney function di scussed Discussed hydration Monitor lab every 4months so will check CMP, HbA1C next month 05/21/2015 Appointment: Vikki Guaman WPtel: [address] [place] [address] 05/19 confirmed ~sl ACUTE ILLNESS 05/21/2015 Patient Education: Patient Medication Summary Completed 05/21/2015 Visit Plan: Vestibular exercises Refill flonase Strict low Na diet--discussed that needs to read labels Rx for walker with chair given due to muscle weakness/unsteadiness Has carotids and abdominal aorta and legs checked in March Check Chem 7 02/19/2015 Appointment: Vikki Guaman WPtel: [address] [place] [address] 02/18/15 appt confirmed cn FOLLOW UP 02/19 Patient Education: Patient Medication Summary Completed 02/19/2015 Patient Education: Vertigo Completed 1 04/22/2014 Appointment: Vikki Guaman WPtel: [address] [place], [place] [phone] [place] INJECTION 12/20/2014 Patient Education: Patient Medication Summary Completed 12/20/2014 Appointment: Vikki Guaman WPtel: [address] [place], [place] [phone] [place] UA 11/19/2014 Patient Education: Patient Medication Summary Completed 11/19/2014 Referral: Edy Cheek WPtel: #1 [facility] Katerina [id number] [place] Referral Completed 11/18/2014 Appointment: Vikki Guaman WPtel: [address] [place], [place] [phone] [place] LAB 11/14/2014 Patient Education: Patient Medication Summary Completed 11/14/2014 Visit Plan: Check CMP, CBC, TSH, Free T4 , B12, Lipids, HbA1C Discussed 6 small meals a day each with protein Would likely benefit from antidepressant Update colonoscopy 11/13/2014 Appointment: Vikki Guaman WPtel: [address] [place], [place] [phone] 11/12/14 confirmed ACUTE ILLNESS 11/13/2014 Patient Education: Patient Medication Summary Completed 11/13/2014 Visit Plan: Cerumen flush with warm wate r and peroxide - good results Resume Nasonex nasal spray daily Recommended Debrox earwax removal drops 09/27/2014 Appointment: Jessenia Francis WPtel: [address] [place] [address] ACUTE ILLNESS 09/27/2014 Patient Education: Patient Medication Summary Completed 09/27/2014 Visit Plan: Continue aspirin daily Add m eloxicam for 1week Elevate and Ice Call on Tuesday07/11/2014 Appointment: Vikki Guaman WPtel: [address] [place] [address] ACUTE ILLNESS 07/11/2014 Patient Education: Patient Medication Summary Completed 07/11/2014 Visit Plan: Been using baclofen at [facility] and has helped some PT for next 2-4weeks 05/23/2014 Appointment: Vikki Guaman WPtel: [address] [place], [place] [address] Hospital Follow Up 05/23/2014 Patient Education: Patient Medication Summary Completed 05/23/2014 Appointment: Vikki Guaman WPtel: [address] [place], [place] [phone] LAB 05/10/2014 Appointment: Vikki Guaman WPtel: [address] [place] [address] feeling better, weather - FOLLOW UP 04/07 Referral: Edy Cheek WPtel: #[address] [facility]66[facility] Referral Appointment Requested 04/03/2014 Visit Plan: Continue exercise and curren t meds See surgery for removal of right arm lesion 03/20/2014 Appointment: Vikki Guaman WPtel: [address] [place] [address] FOLLOW UP 03/20/2014 Patient Education: Patient Medication Summary Completed 03/20/2014 Appointment: Vikki Guaman WPtel: [address] [place], [place] [address] US INJECTION 12/21/2013 Patient Education: Patient Medication Summary Completed 12/21/2013 Appointment: Jessenia Francis WPtel: [address] [place] [address] ACUTE ILLNESS 10/17/2013 Patient Education: Patient Medication Summary Completed 10/17/2013 Visit Plan: Discussed that likely lumbar etiology for leg weakness Will change amlodopine to low dose dyazide and see if helps legs and inner ear 09/24/2013 Appointment: Vikki Guaman WPtel: [address] [place] [address] FOLLOW UP 09/24/2013 Patient Education: Patient Medication Summary Completed 09/24/2013 Visit Plan: Ceftin and continue claritin /flonase Decrease amlodopine to 2.5mg q HS until fwup with Card due to weakness 05/31/2013 Appointment: Vikki Guaman WPtel: [address] [place] [address] ACUTE ILLNESS 05/31/2013 Patient Education: Patient Medication Summary Completed 05/31/2013 Appointment: Vikki Guaman WPtel: [address] [place], [place] [phone] LAB 03/28/2013 Patient Education: Patient Medication Summary Completed 03/28/2013 Appointment: Jessenia Francis WPtel: [address] [place], [place] [phone] ACUTE ILLNESS 03/26/2013 Patient Education: Patient Medication Summary Completed 03/26/2013 Visit Plan: Supportive care. Rest, Fluid s, Tylenol prn fever or bodyaches. Notify if worsening symptoms. Ceftin 12/19/2012 Appointment: Jessenia Francis WPtel: [address] [place] [address] ACUTE ILLNESS 12/19/2012 Patient Education: Patient Medication Summary Completed 12/19/2012 Appointment: Vikki Guaman WPtel: [address] [place] [address] BP CHECK 12/04/2012 Patient Education: Patient Medication Summary Completed 12/04/2012 Appointment: Vikki Guaman WPtel: [address] [place] [address] ER Follow UP 11/27/2012 Patient Education: Patient Medication Summary Completed 11/27/2012 Visit Plan: Restart flonase BID Use mecl izine 25mg q HS Vestibular exercises Claritin 10mg q AM See ENT if doesn't resolve 10/04/2012 Appointment: Vikki Guaman WPtel: [address] [place] [address] ACUTE ILLNESS 10/04/2012 Patient Education: Patient Medication Summary Completed 10/04/2012 Visit Plan: Will continue to observe 07/27/2012 Appointment: Vikki Guaman WPtel: [address] [place], [place] [address] FOLLOW UP 07/27/2012 Patient Education: Patient Medication [...] ear recheck. 07/14/2012 Appointment: Evelyn Santos WPtel: [address] [place] [address] ACUTE ILLNESS 07/14/2012 Patient Education: Patient Medication Summary Completed 07/14/2012 Visit Plan: Decrease caffeine intake Kristin ck Bilateral Mammogram with US of left breast 06/08/2012 Appointment: Vikki Guaman WPtel: [address] [place] [address] ACUTE ILLNESS 06/08/2012 Patient Education: Patient Medication Summary Completed 06/08/2012 Appointment: Alisia Campbell WPtel: [address] [place] [address] appt scheduled 04/06 ACUTE ILLNESS 04/10/2012 Appointment: Vikki Guaman WPtel: [address] [place], [place] [id number] [place] [facility] 02/23/2012 Patient Education: Patient Medication Summary Completed 02/23/2012 Visit Plan: Continue off carafate and se e how does Continue probiotic Add Vestibular exercises and use meclizine prn Continue Nasonex Check fasting lab including CMP, Lipids, CBC, TSH, Free T4, HbA1C 02/22/2012 Appointment: Vikki Guaman WPtel: [address] [place] [address] FOLLOW UP 02/22/2012 Patient Education: Patient Medication Summary Completed 02/22/2012 Visit Plan: Continue carafate for 4more weeks at current dose then decrease to BID for 2wks then q HS 12/28/2011 Appointment: Vikki Guaman WPtel: [address] [place], [place] [id number] FOLLOW UP 12/28/2011 Patient Education: Patient Medication Summary Completed 12/28/2011 Visit Plan: Continue omeprazole Add Judi fate 1gm po q AC Add daily probiotic 12/15/2011 Appointment: Vikki Guaman WPtel: [address] [place] [address] ACUTE ILLNESS 12/15/2011 Patient Education: Patient Medication Summary Completed 12/15/2011 Appointment: Vikki Guaman WPtel: [address] [place], [place] [id number] US INJECTION 12/02/2011 Patient Education: Patient Medication Summary Completed 12/02/2011 Visit Plan: Diabetic Diet Accuchecks BID alternating times Hold onglyza and Januvia for now and continue diet and exercise and weight loss and lana BAPTISTE Discussed hypoglycemia and snack of peanut butter and crackers with juice or milk 09/21/2011 Appointment: Vikki Guamantel: [address] [place] [address] WORK IN 09/21/2011 Patient Education: Patient Medication Summary Completed 09/21/2011 Appointment: Vikki Guaman WPtel: [address] [place] [address] 09/16/2011 Patient Education: Patient Medication Summary Completed 09/16/2011 Appointment: Vikki Guaman WPtel: [address] [place] [address] LAB 09/15/2011 Patient Education: Patient Medication Summary Completed 09/15/2011 Appointment: Vikki Guaman WPtel: [address] [place] [address] ACUTE ILLNESS 09/13/2011 Patient Education: Patient Medication Summary Completed 09/13/2011 Visit Plan: Injection to Right SI joint as above Pt will call in 3 days on pain Has PT starting in 2wks. 08/16/2011 Appointment: Vikki Guaman WPtel: [address] [place] [address] ACUTE ILLNESS 08/16/2011 Patient Education: Patient Medication Summary Completed 08/16/2011 Visit Plan: OMT done Start PT May need u pdated MRI if need to consider epidural Prednisone 08/03/2011 Appointment: Vikki Guaman WPtel: [address] [place] [address] OMT 08/03/2011 Patient Education: Patient Medication Summary Completed 08/03/2011 Visit Plan: Flexeril and Vimovo OMT done Daily stretches 07/26/2011 Appointment: Vikki Guaman WPtel: [address] [place], [place] [id number] ACUTE ILLNESS 07/26/2011 Patient Education: Patient Medication Summary Completed 07/26/2011 Visit Plan: OMT done Daily stretches Roque st heat or biofreeze Right SI joint injection Call in 1week Vimovo BID 06/28/2011 Appointment: Vikki Guaman WPtel: [address] [place], [place] [id number] [place] ACUTE ILLNESS 06/28/2011 Patient Education: Patient Medication Summary Completed 06/28/2011 Appointment: Vikki Guaman WPtel: [address] [place], [place] [id number] [place] LAB 04/01/2011 Patient Education: Patient Medication Summary Completed 04/01/2011 Visit Plan: Decrease amlodopine to 1.25m g daily Schedule with Cardiology Fasting lab in AM 03/31/2011 Appointment: Vikki Guaman WPtel: [address] [place] [address] ACUTE ILLNESS 03/31/2011 Patient Education: Patient Medication Summary Completed 03/31/2011 Visit Plan: Saline nasal flushes prn. Ty lenol/Motrin prn headache. Notify if persists/symptoms worsening. Cerumen removal from ears as above 02/11/2011 Appointment: Vikki Guaman WPtel: [address] [place], [place] [id number] ACUTE ILLNESS 02/11/2011 Patient Education: Patient Medication Summary Completed 02/11/2011 Appointment: Vikki Guaman WPtel: [address] [place], [place] [id number] [place] INJECTION 12/09/2010 Patient Education: Patient Medication Summary Completed 12/09/2010 Visit Plan: Continue vimovo for 1more we ek Increase Omeprazole to BID for 1mo then resume QD if stomach improved Vestibular exercises with meclizine q HS for next week 10/15/2010 Appointment: Vikki Guaman WPtel: [address] [place] [address] FOLLOW UP 10/15/2010 Patient Education: Patient Medication Summary Completed 10/15/2010 Appointment: Vikki Guaman WPtel: [address] [place] [address] ACUTE ILLNESS 09/29/2010 Patient Education: Patient Medication Summary Completed 09/29/2010 Appointment: Vikki Guaman WPtel: [address] [place] [address] LAB 07/06/2010 Patient Education: Patient Medication Summary Completed 07/06/2010 Visit Plan: Saline nasal flushes prn. Ty lenol/Motrin prn headache. Notify if persists/symptoms worsening. Add Veramyst Increase Omeprazole to 20mg po BID 07/02/2010 Appointment: Vikki Guaman WPtel: [address] [place] [address] ACUTE ILLNESS 07/02/2010 Patient Education: Patient Medication Summary Completed 07/02/2010 Appointment: Vikki Guaman WPtel: [address] [place] [address] FOLLOW UP 04/06/2010 Patient Education: Patient Medication Summary Completed 04/06/2010 Appointment: Vikki Guaman WPtel: [address] [place] [address] ACUTE ILLNESS 04/01/2010 Patient Education: Patient Medication Summary Completed 04/01/2010 Visit Plan: Nasocourt sample given. Pt. will notify if symptoms are worse on Tuesday. 01/22/2010 Appointment: Alisia Campbell WPtel: [address] [place] [address] ACUTE ILLNESS 01/22/2010 Patient Education: Patient Medication Summary Completed 01/22/2010 Appointment: Vikki Guaman WPtel: [address] [place], [place] [id number] [place] INJECTION 12/10/2009 Patient Education: Patient Medication Summary Completed 12/10/2009 Appointment: Vikki Guaman WPtel: [address] [place] [address] FOLLOW UP 12/02/2009 Patient Education: Patient Medication Summary Completed 12/02/2009 Patient Education: Lexapro Completed 0 12/02/2009 Visit Plan: May proceed with hiatal ryan ia repair per Card. so will contact Dr. Mariscal's office to proceed with surgery Trial of Lexapro 5mg QD plus use xanax prn 10/21/2009 Appointment: Vikki Guaman WPtel: [address] [place] [address] FOLLOW UP 10/21/2009 Patient Education: Patient Medication Summary Completed 10/21/2009 Visit Plan: B12 given Cont oral B12 and iron Fwup 1mo for B12 Proceed with hiatal hernia repair once card clearance 09/10/2009 Appointment: Vikki Guaman WPtel: [address] [place] [address] FOLLOW UP 09/10/2009 Patient Education: Patient Medication Summary Completed 09/10/2009 Appointment: Vikki Guaman WPtel: [address] [place] [address] FOLLOW UP 08/11/2009 Patient Education: Patient Medication Summary Completed 08/11/2009 Appointment: Vikki Guaman WPtel: [address] [place] [address] [place] LAB 06/10/2009 Patient Education: Patient Medication Summary Completed 06/10/2009 Visit Plan: Check fasting lab in AM--CMP ,Lipids, CBC, Vit D, TSH,FreeT4, B12 06/09/2009 Appointment: Vikki Guaman WPtel: [address] [place] [address] [place] FOLLOW UP 06/09/2009 Patient Education: Patient Medication Summary Completed 06/09/2009 Referral: Edy Cheek WPtel: [address] [place] [address] [place] Referral Appointment Requested Referral: Edy Cheek WPtel: [facility] [id number] [place] Referral Initiated Instructions Comment . Supportive [...]
--- OUTSIDE RECORDS SUMMARY | 2019-04-25 20:31 | XMS REPORT | CCD ---
Author Author Evelyne Guaman D.O. Organization [facility] Address [address] [place] [address] Phone Care Team Providers Care Vortex Operator Name Role Phone Vikki Guaman D.O., PP Unavailable CCM Unavailable Summary Purpose Interface Exchange Insurance Providers Payer name Policy type / Coverage type Covered constitution party ID Effective Begin Date Effective End Date WPS MEDICARE PART B [place] Medicare Part B [id number] 2017 Unknown Aetna [facility] Medicare Part B [id number] Unknown Family history Father Diagnosis Age At Onset Heart disease Unknown Mother Diagnosis Age At Onset Heart disease Unknown Cancer Unknown Social History Social History Element Codes Description Effective Dates Tobacco history SNOMED CT: 398958024 Never smoker 09/29/2010 Marital status Unknown Single [...] Condition Codes Effective Dates Condition Status Essential hypertension ICD-9: 401.9 ICD-10: I10 09/24/2013 Active [...] R10.13 11/22/2017 Active Atherosclerotic heart disease of [place] coronary arter y without angina pectoris [...] Relief 50 mcg/actuation nasal spray,suspensi on RxNorm: 2410441 2 Ida Nasal every night at bedtime 03/13/2019 03/13/2019 Inactive simvastatin 40 mg tablet RxNorm: 679699 1 Tablet(s) PO QD 01/22/2019 04/21/2019 Active omeprazole 40 mg capsule,delayed release RxNorm: 142743 1 Capsu le(s) Oral QD 01/10/2019 07/08/2019 Active Xanax 0.25 mg tablet RxNorm: 477312 TAKE 1 TABLET BY MOUTH TWIC E DAILY 01/02/2019 No Stop Date Active omeprazole 40 mg capsule,delayed release RxNorm: 712574 1 Capsu le(s) PO QD 12/11/2018 01/09/2019 Inactive metoprolol tartrate 25 mg tablet RxNorm: 956255 1 Tablet(s) PO BID 11/20/2018 05/18/2019 Active omeprazole 40 mg capsule,delayed release RxNorm: 513148 1 Capsu le(s) PO QD 11/13/2018 12/10/2018 Inactive Flonase Allergy Relief 50 mcg/actuation nasal spray,suspensi on RxNorm: 3349675 2 Ida NASAL QHS 11/07/2018 03/12/2019 Inactive simvastatin 40 mg tablet RxNorm: 760496 1 Tablet(s) PO QD 10/23/2018 01/20/2019 Inactive simvastatin 40 mg tablet RxNorm: 127537 1 Tablet(s) PO QD 07/24/2018 10/21/2018 Inactive omeprazole 40 mg capsule,delayed release RxNorm: 262186 1 Capsu le(s) PO QD 07/13/2018 11/09/2018 Inactive simvastatin 40 mg tablet RxNorm: 806111 1 Tablet(s) PO QD 06/13/2018 07/12/2018 Inactive omeprazole 40 mg capsule,delayed release RxNorm: 378416 1 Capsu le(s) PO QD 06/13/2018 07/12/2018 Inactive Bactrim DS 800 mg-160 mg tablet RxNorm: 989200 1 Tablet(s) PO BID 0 05/12/2018 05/18/2018 Inactive Bactrim DS 800 mg-160 mg tablet RxNorm: 307569 1 Tablet(s) PO BID 0 05/12/2018 05/11/2018 Inactive Macrobid 100 mg capsule RxNorm: 931244 1 Capsule(s) PO BID 05/11/19 19 05/16/2018 Inactive metoprolol tartrate 25 mg tablet RxNorm: 662196 1 Tablet(s) PO BID 05/10/2018 11/05/2018 Inactive Xanax 0.25 mg tablet RxNorm: 889368 TAKE 1 TABLET BY MOUTH TWIC E DAILY 02/16/2018 01/01/2019 Inactive Xanax 0.25 mg tablet RxNorm: 094275 1 Tablet(s) PO BID 02/14/2018 Inactive Protonix 40 mg tablet,delayed release RxNorm: 320711 1 Tablet(s) PO BID for stomach--replaces omeprazole 01/10/2018 05/09/2018 Inactive Carafate 1 gram tablet RxNorm: 368370 1 Tablet(s) PO AC & HS 201705/09/2018 Inactive Xanax 0.25 mg tablet RxNorm: 994624 1 Tablet(s) PO BID 01/03/201812/2017 Inactive Bactrim DS 800 mg-160 mg tablet RxNorm: 503668 1 Tablet(s) PO BID 1 12/12/2017 Inactive Bactrim DS 800 mg-160 mg tablet RxNorm: 078913 1 Tablet(s) PO BID 1 12/07/2017 Inactive Carafate 1 gram tablet RxNorm: 050847 1 Tablet(s) PO AC & HS 201712/21/2017 Inactive Protonix 40 mg tablet,delayed release RxNorm: 727193 1 Tablet(s) PO BID for stomach--replaces omeprazole 11/22/2017 01/09/2018 Inactive Protonix 40 mg tablet,delayed release RxNorm: 370329 1 Tablet(s) PO BID for stomach--replaces omeprazole 10/20/2017 11/21/2017 Inactive fluticasone 50 mcg/actuation nasal spray,suspension RxNorm: 3973066 2 Ida NASAL QD to each nostril 07/07/2017 08/13/2018 Inactive Nasonex 50 mcg/actuation Ida RxNorm: 0091896 2 Ida NASAL 201707/07/2017 Inactive omeprazole 40 mg capsule,delayed release RxNorm: 076056 1 Capsu le(s) PO QD 04/18/2017 10/19/2017 Inactive simvastatin 40 mg tablet RxNorm: 886773 1 Tablet(s) PO QD TAKE 1 TABLET EVERY DAY 04/18/2017 04/12/2018 Inactive metoprolol tartrate 25 mg tablet RxNorm: 585385 1/2 Tablet(s) PO QD 04/18/2017 01/09/2018 Inactive simvastatin 40 mg tablet RxNorm: 705479 Tablet(s) TAKE 1 TABLET EVERY DAY 10/27/2016 04/17/2017 Inactive metoprolol tartrate 25 mg tablet RxNorm: 356706 1/2 Tablet(s) PO QD 09/20/2016 03/18/2017 Inactive Flonase 50 mcg/actuation nasal spray,suspension RxNorm: 1797 933 2 Ida NASAL BID 09/20/2016 04/17/2017 Inactive omeprazole 40 mg capsule,delayed release RxNorm: 896922 1 Capsu le(s) PO QD 09/08/2016 04/17/2017 Inactive metoprolol tartrate 25 mg tablet RxNorm: 751482 1/2 Tablet(s) PO QD 06/14/2016 09/19/2016 Inactive ciprofloxacin 0.2 % ear drops in a dropperette RxNorm: 36331 6 4 Drop(s) OTIC TID for 1 week 02/06/2016 05/11/2016 Inactive cefdinir 300 mg capsule RxNorm: 842328 2 Capsule(s) PO QD 02/06/2016 02/15/2016 Inactive omeprazole 40 mg capsule,delayed release RxNorm: 024886 TAKE 1 CAPSULE EVERY DAY 11/06/2015 09/08/2016 Inactive simvastatin 40 mg tablet RxNorm: 260167 TAKE 1 TABLET EVERY DAY 05/201510/27/2016 Inactive Flonase 50 mcg/actuation nasal spray,suspension RxNorm: 1797 933 2 Ida NASAL BID 02/19/2015 09/19/2016 Inactive cefuroxime axetil 250 mg tablet RxNorm: 707635 1 Tablet(s) PO BID 0 11/21/2014 11/20/2014 Inactive cefuroxime axetil 250 mg tablet RxNorm: 814131 1 Tablet(s) PO BID 0 11/21/2014 11/27/2014 Inactive omeprazole 40 mg capsule,delayed release RxNorm: 891836 1 Capsu le(s) PO QD 10/09/2014 01/05/2015 Inactive meloxicam 7.5 mg tablet RxNorm: 283942 1 Tablet(s) PO QD 07/11/2014 0 08/09/2014 Inactive loratadine 10 mg tablet RxNorm: 324422 1 Tablet(s) PO QAM for a llergies 10/17/2013 08/13/2018 Inactive Flonase 50 mcg/actuation nasal spray,suspension RxNorm: 8963 23 2 Ida NASAL BID 10/17/2013 02/18/2015 Inactive prednisone 20 mg tablet RxNorm: 514753 2 Tablet(s) PO BID 10/17/2013 10/21/2013 Inactive Dyazide 37.5 mg-25 mg capsule RxNorm: 485286 1 Capsule(s) PO QAM 10/16/2013 Inactive Ceftin 500 mg tablet RxNorm: 685759 1 Tablet(s) PO BID 05/31/201307/2013 Inactive Ceftin 500 mg tablet RxNorm: 264159 1 Tablet(s) PO BID 03/26/2013 Inactive simvastatin 40 mg tablet RxNorm: 945465 Tablet(s) PO TA KE ONE TABLET BY MOUTH EVERY DAY 03/26/2013 10/07/2015 Inactive metoprolol tartrate 25 mg tablet RxNorm: 120336 Tablet( s) PO TAKE ONE-HALF TABLET BY MOUTH EVERY DAY 03/26/2013 11/12/2014 Inactive Ceftin 500 mg tablet RxNorm: 494156 1 Tablet(s) PO BID 12/19/2012 Inactive loratadine 10 mg tablet RxNorm: 724020 1 Tablet(s) PO QAM for a llergies 10/04/2012 12/02/2012 Inactive omeprazole 20 mg capsule,delayed release RxNorm: 025771 Capsule(s) PO TAKE ONE CAPSULE BY MOUTH TWICE DAILY 08/09/2012 10/08/2014 Inactive omeprazole 20 mg capsule,delayed release RxNorm: 932537 1 Capsu le(s) PO BID 08/09/2012 05/09/2018 Inactive Augmentin 875 mg-125 mg tablet RxNorm: 705589 1 Tablet(s) PO Q12H 0 07/14/2012 07/23/2012 Inactive Floxin Otic Drops 1 bottle Drops RxNorm: 5 Drop(s) OTIC BID 07/20/2012 Inactive metoprolol tartrate 25 mg tablet RxNorm: 026357 Tablet( s) PO TAKE ONE-HALF TABLET BY MOUTH EVERY DAY 04/11/2012 03/25/2013 Inactive simvastatin 40 mg tablet RxNorm: 603477 Tablet(s) PO TA KE ONE TABLET BY MOUTH EVERY DAY 04/11/2012 03/25/2013 Inactive lancets RxNorm: Misc Miscellaneous USE ONE TO CH JEFFERY GLUCOSE EVERY DAY 04/04/2012 05/09/2018 Inactive Carafate 1 gram tablet RxNorm: 308672 1 Tablet(s) PO AC & HS 201111/12/2014 Inactive Flagyl 500 mg tablet RxNorm: 168443 1 Tablet(s) PO TID 12/15/2011 Inactive Carafate 1 gram tablet RxNorm: 576536 1 Tablet(s) PO AC & HS 201102/12/2012 Inactive One Touch Test strips RxNorm: Miscellaneous QD 09/21/2011 05/09/2018 Inactive one touch ultra mini test strips Protonix 40 mg Tab RxNorm: 910566 1 Tablet(s) PO QD 09/13/20112011 Inactive Protonix 40 mg Tab RxNorm: 255648 1 Tablet(s) PO QD 09/13/20112011 Inactive prednisone 20 mg Tab RxNorm: 314923 1 Tablet(s) PO BID 08/03/201106/2011 Inactive Flexeril 5 mg Tab RxNorm: 700793 1 Tablet(s) PO QHS for spasm 07/2508/24/2011 Inactive Flexeril 5 mg Tab RxNorm: 167447 1 Tablet(s) PO QHS for spasm 06/2707/25/2011 Inactive amlodipine 2.5 mg Tab RxNorm: 621074 1/2 Tablet(s) PO QD replac es 5mg dose 03/31/2011 06/27/2011 Inactive simvastatin 40 mg tablet RxNorm: 736171 1 Tablet(s) PO QD 03/31/2011 03/24/2012 Inactive metoprolol tartrate 25 mg tablet RxNorm: 651756 1/2 Tablet(s) PO QD 03/31/2011 03/24/2012 Inactive omeprazole 20 mg capsule,delayed release RxNorm: 787417 1 Capsu le(s) PO BID 03/31/2011 09/12/2011 Inactive cefdinir 300 mg Cap RxNorm: 843885 2 Capsule(s) PO QD 02/11/201102/04 Inactive simvastatin 40 mg Tab RxNorm: 684824 1 Tablet(s) PO QD 02/01/2011 Inactive metoprolol tartrate 25 mg Tab RxNorm: 143587 1/2 Tablet(s) PO QD 03/30/2011 Inactive metoprolol tartrate 25 mg Tab RxNorm: 375961 1/2 Tablet(s) PO QD 12/28/2010 Inactive meclizine 25 mg Tab RxNorm: 9330001 1 Tablet(s) PO QHS 10/15/201011/2010 Inactive for dizziness Ceftin 500 mg Tab RxNorm: 610156 1 Tablet(s) PO BID 07/02/20102010 Inactive omeprazole 20 mg Cap, Delayed Release RxNorm: 201044 1 Capsule( s) PO BID 07/02/2010 12/28/2010 Inactive simvastatin 40 mg Tab RxNorm: 970624 1 Tablet(s) PO QD 06/30/201007/2018 Inactive simvastatin 40 mg Tab RxNorm: 733981 1 Tablet(s) PO QD 06/30/2010 Inactive simvastatin 40 mg Tab RxNorm: 546960 1 Tablet(s) PO QD 02/25/2010 Inactive Tessalon Perles 100 mg Cap RxNorm: 694956 1 Capsule(s) PO Q6-8H 01/28/2010 Inactive cefdinir 300 mg Cap RxNorm: 775858 1 Capsule(s) PO BID 01/22/2010 Inactive Lexapro 10 mg Tab RxNorm: 724519 1 Tablet(s) PO QD 12/02/2009 010 Inactive Cipro 250 mg Tab RxNorm: 235895 1 Tablet(s) PO BID 12/02/2009 010 Inactive Wellbutrin XL 150 mg 24 hr Tab RxNorm: 483928 1 Tablet(s) PO QAM 08/07/2009 Inactive Fish Oil 1,000 mg Cap RxNorm: 1 Capsule(s) PO QD No Start Date Active Tylenol Extra Strength 500 mg tablet RxNorm: 937757 1/2 Tablet( s) PO as needed No Start Date Active nitroglycerin 0.4 mg sublingual tablet RxNorm: 255607 Tablet(s) SL as needed No Start Date Active Calcium with Vitamin D 600 mg (1,500 mg)-400 unit tablet RxN orm: 985186 1 Tablet(s) PO QD No Start Date Active Multivitamin & Mineral Formula Tab RxNorm: 1 Tablet(s) PO QD No St art Date Active vitamin B complex capsule RxNorm: 1 Capsule(s) PO QD No Start Date Active Aspirin 81 mg Tab RxNorm: 789290 1 Tablet(s) PO QD No Start Date Active isosorbide mononitrate ER 30 mg tablet,extended release 24 h r RxNorm: 519993 1 Tablet(s) PO QHS No Start Date Active Vitamin D 1,000 unit Cap RxNorm: 171159 1 Capsule(s) PO QD No Start D ate Active Co Q-10 oral RxNorm: 80865 oral No Start Date Active metoprolol tartrate 25 mg Tab RxNorm: 669713 1/2 Tablet(s) PO QD No Start Date 12/27/2010 Inactive Nasonex 50 mcg/actuation Ida RxNorm: 8773492 2 Ida NASAL No Sta rt Date 07/06/2017 Inactive Vitamin B12 1000mcg Tablet RxNorm: 1 Tablet(s) PO QD No Start Date 11/12/2014 Inactive amlodipine 5 mg Tab RxNorm: 335940 1 Tablet(s) PO QD No Start Date Inactive simvastatin 40 mg tablet RxNorm: 832384 1 Tablet(s) PO QD No Start Date 06/12/2018 Inactive omeprazole 20 mg capsule,delayed release RxNorm: 797286 1 Capsu le(s) PO BID No Start Date 08/08/2012 Inactive omeprazole 40 mg capsule,delayed release RxNorm: 277490 1 Capsu le(s) PO QD No Start Date 06/12/2018 Inactive Nexium 40 mg Cap RxNorm: 302300 1 Capsule(s) PO QD No Start Date 01/05 Inactive Stool Softener 100 mg Tab RxNorm: 5249077 2 Tablet(s) PO BID No Sta rt Date 03/30/2011 Inactive Calcium with Vitamin D 600 mg (1,500 mg)-400 unit Tab RxNorm : 731965 1 Tablet(s) PO QD No Start Date 11/12/2014 Inactive iron 325 mg (65 mg iron) Tab RxNorm: 120881 1 Tablet(s) PO QD No St art Date 11/12/2014 Inactive Flonase 50 mcg/actuation Nasal Ida RxNorm: 054378 2 Ida DEMOND AL BID No Start Date 10/16/2013 Inactive fluticasone 50 mcg/actuation nasal spray,suspension RxNorm: 8268981 2 Ida NASAL QD to each nostril No Start Date 07/06/2017 Inactive Nasonex 50 mcg/actuation Ida RxNorm: 2982512 2 Ida NASAL QD No Start Date 07/06/2017 Inactive hydralazine 50 mg tablet RxNorm: 135380 1 Tablet(s) PO as needed for BP over 160/90 No Start Date 11/21/2017 Inactive Vimovo 500 mg-20 mg 12 hr Tab RxNorm: 356046 1 Tablet(s) PO BID No Start Date 02/10/2011 Inactive Tylenol PM 25 mg-500 mg/15 mL Oral Soln RxNorm: 8575413 1 PO QPM No Start Date 11/12/2014 Inactive Iron (Ferrous Sulfate) Oral RxNorm: Oral No Start Date 03/30/19 12 Inactive Reglan 10 mg Tab RxNorm: 023581 1 Tablet(s) PO TID before meals No Start Date 02/10/2011 Inactive Xanax 1 mg Tab RxNorm: 711077 1/2 Tablet(s) PO QD No Start Date 11/21 Inactive amlodipine 10 mg tablet RxNorm: 540107 1 Tablet(s) PO QD No Start D ate 09/23/2013 Inactive Iron (dried) Oral RxNorm: Oral No Start Date 03/30/2011 Inactiv e metoprolol tartrate 50 mg tablet RxNorm: 987069 1 Tablet(s) PO BID No Start Date 02/13/2018 Inactive Xanax 0.25 mg tablet RxNorm: 342296 1 Tablet(s) PO BID No Start Date 01/02/2018 Inactive lancets RxNorm: Miscellaneous check blood sugar at least once daily No Start Date 04/03/2012 Inactive simvastatin 40 mg Tab RxNorm: 140503 1 Tablet(s) PO QD No Start Date 02/24/2010 Inactive isosorbide mononitrate ER 30 mg tablet,extended release 24 h r RxNorm: 417227 1 Tablet(s) PO QHS No Start Date 08/13/2018 Inactive amlodipine 2.5 mg tablet RxNorm: 136228 1 Tablet(s) PO QD No Start Date 09/23/2013 Inactive sucralfate 1 gram tablet RxNorm: 547572 1 Tablet(s) PO QID No Start Date 05/09/2018 Inactive Fish Oil Oral RxNorm: Oral No Start Date 03/31/2011 Inactive Multiple Vitamin Oral RxNorm: Oral No Start Date 03/31/2011 Franny ctive metoprolol tartrate 25 mg tablet RxNorm: 167302 1/2 Tablet(s) P O QD No Start Date 06/13/2016 Inactive metoprolol tartrate 50 mg tablet RxNorm: 558150 1/2 Tablet(s) P O BID No Start Date 05/09/2018 Inactive Flonase Allergy Relief 50 mcg/actuation nasal spray,suspensi on RxNorm: 0820058 2 Ida NASAL QHS No Start Date 11/06/2018 Inactive [...] Code Item Item Code Result Date S ervice Location COMPLETE BLOOD COUNT [id number] WBC 7.1 10e9/L 03/13/19 20 Unknown COMPLETE BLOOD COUNT [id number] RBC 4.16 10e12/L 2019 Unknown COMPLETE BLOOD COUNT [id number] HEMOGLOBIN 12.4 g/dL 03/13/19 20 Unknown COMPLETE BLOOD COUNT [id number] HEMATOCRIT 39.3 % 03/13/19 20 Unknown COMPLETE BLOOD COUNT [id number] MCV 94.5 fL 0 Unknown COMPLETE BLOOD COUNT [id number] MCH 29.8 pg 0 Unknown COMPLETE BLOOD COUNT [id number] MCHC 31.6 g/dL 0 Unknown COMPLETE BLOOD COUNT [id number] PLATELET COUNT 161 10e9/L 09/2019 Unknown COMPLETE BLOOD COUNT [id number] Mean Plt Volume 10.8 fL 09/2019 Unknown COMPLETE BLOOD COUNT [id number] Neut Auto 38.7 % 0 Unknown COMPLETE BLOOD COUNT [id number] Lymph Auto 48.0 % 03/13/19 20 Unknown COMPLETE BLOOD COUNT [id number] Arthur Auto 9.5 % 0 Unknown COMPLETE BLOOD COUNT [id number] RDW 13.5 % 0 Unknown COMPLETE BLOOD COUNT [id number] Eos Auto 3.2 % 0 Unknown COMPLETE BLOOD COUNT [id number] Baso Auto 0.6 % 0 Unknown COMPLETE BLOOD COUNT [id number] Neutrophil Abs 2.75 10e9/L Unknown COMPLETE BLOOD COUNT [id number] Lymphocyte Abs 3.41 10e9/L Unknown COMPLETE BLOOD COUNT [id number] Monocyte Abs 0.67 10e9/L 09/2019 Unknown COMPLETE BLOOD COUNT [id number] Eosinophil Abs 0.23 10e9/L Unknown COMPLETE BLOOD COUNT [id number] RDW-SD 44.7 fL 0 Unknown COMPLETE BLOOD COUNT [id number] Basophil Abs 0.04 10e9/L 09/2019 Unknown GFR CALC [id number] GFR Non Afr Amr 52 mL/min 12/15/2018 Unk nown GFR CALC [id number] GFR Afr Amr >60 mL/min 12/15/2018 Unknow n COMPREHENSIVE METABOLIC 35731 AST 17 U/L 2018 Unknown COMPREHENSIVE METABOLIC 78275 ALT 11 U/L 2018 Unknown COMPREHENSIVE METABOLIC 94773 BUN 17 mg/dL 2018 Unknown COMPREHENSIVE METABOLIC 77407 ALBUMIN 3.9 g/dL 2018 Unknown COMPREHENSIVE METABOLIC 82837 CHLORIDE 108 mmol/L 12/15 Unknown COMPREHENSIVE METABOLIC 31549 Bili Total 0.5 mg/dL 12/15 Unknown COMPREHENSIVE METABOLIC 00222 ALK PHOS 72 U/L 2018 Unknown COMPREHENSIVE METABOLIC 95935 SODIUM 142 mmol/L 12/15 Unknown COMPREHENSIVE METABOLIC 89623 CREATININE 1.02 mg/dL 12/05 Unknown COMPREHENSIVE METABOLIC 75254 CALCIUM 9.3 mg/dL 2018 Unknown COMPREHENSIVE METABOLIC 80940 POTASSIUM 4.0 mmol/L 12/15 Unknown COMPREHENSIVE METABOLIC 46868 Total Protein 6.2 g/dL Unknown COMPREHENSIVE METABOLIC 38208 Glucose 93 mg/dL 2018 Unknown COMPREHENSIVE METABOLIC 18491 Bicarbonate 27 mmol/L 12/05 Unknown COMPREHENSIVE METABOLIC 82486 AGAP 7 mmol/L 2018 Unknown GFR CALC [id number] GFR Non Afr Amr 48 mL/min 08/14/2018 Unk nown GFR CALC [id number] GFR Afr Amr 59 mL/min 08/14/2018 Unknown THYROID STIMULATING HORMONE 14397 TSH 1.936 uIU/mL 08/14/2018 Unknown COMPREHENSIVE METABOLIC 07650 AST 18 U/L 2018 Unknown COMPREHENSIVE METABOLIC 27945 ALT 11 U/L 2018 Unknown COMPREHENSIVE METABOLIC 42866 BUN 18 mg/dL 2018 Unknown COMPREHENSIVE METABOLIC 01542 ALBUMIN 4.2 g/dL 2018 Unknown COMPREHENSIVE METABOLIC 89738 CHLORIDE 109 mmol/L 08/14 Unknown COMPREHENSIVE METABOLIC 48539 Bili Total 0.4 mg/dL 08/14 Unknown COMPREHENSIVE METABOLIC 80186 ALK PHOS 64 U/L 2018 Unknown COMPREHENSIVE METABOLIC 85940 SODIUM 142 mmol/L 08/14 Unknown COMPREHENSIVE METABOLIC 65831 CREATININE 1.09 mg/dL 08/05 Unknown COMPREHENSIVE METABOLIC 62442 CALCIUM 9.3 mg/dL 2018 Unknown COMPREHENSIVE METABOLIC 89097 POTASSIUM 4.7 mmol/L 08/14 Unknown COMPREHENSIVE METABOLIC 77125 Total Protein 6.3 g/dL Unknown COMPREHENSIVE METABOLIC 93505 Glucose 84 mg/dL 2018 Unknown COMPREHENSIVE METABOLIC 24370 Bicarbonate 25 mmol/L 08/05 Unknown COMPREHENSIVE METABOLIC 05914 AGAP 8 mmol/L 2018 Unknown COMPLETE BLOOD COUNT [id number] WBC 7.8 10e9/L 08/15/19 19 Unknown COMPLETE BLOOD COUNT [id number] RBC 4.04 10e12/L 2018 Unknown COMPLETE BLOOD COUNT [id number] HEMOGLOBIN 12.2 g/dL 08/15/19 19 Unknown COMPLETE BLOOD COUNT [id number] HEMATOCRIT 38.6 % 08/15/19 19 Unknown COMPLETE BLOOD COUNT [id number] MCV 95.5 fL 9 Unknown COMPLETE BLOOD COUNT [id number] MCH 30.2 pg 9 Unknown COMPLETE BLOOD COUNT [id number] MCHC 31.6 g/dL 9 Unknown COMPLETE BLOOD COUNT [id number] PLATELET COUNT 215 10e9/L 12/2018 Unknown COMPLETE BLOOD COUNT [id number] Mean Plt Volume 11.2 fL 12/2018 Unknown COMPLETE BLOOD COUNT [id number] Neut Auto 45.7 % 9 Unknown COMPLETE BLOOD COUNT [id number] Lymph Auto 42.1 % 08/15/19 19 Unknown COMPLETE BLOOD COUNT [id number] Arthur Auto 9.2 % 9 Unknown COMPLETE BLOOD COUNT [id number] RDW 13.4 % 9 Unknown COMPLETE BLOOD COUNT [id number] Eos Auto 2.7 % 9 Unknown COMPLETE BLOOD COUNT [id number] Baso Auto 0.3 % 9 Unknown COMPLETE BLOOD COUNT [id number] Neutrophil Abs 3.56 10e9/L Unknown COMPLETE BLOOD COUNT [id number] Lymphocyte Abs 3.28 10e9/L Unknown COMPLETE BLOOD COUNT [id number] Monocyte Abs 0.72 10e9/L 08/05 Unknown COMPLETE BLOOD COUNT [id number] Eosinophil Abs 0.21 10e9/L Unknown COMPLETE BLOOD COUNT [id number] RDW-SD 44.9 fL 9 Unknown COMPLETE BLOOD COUNT [id number] Basophil Abs 0.02 10e9/L 08/05 Unknown COMPLETE BLOOD COUNT [id number] WBC 5.2 10e9/L 12/01/19 18 Unknown COMPLETE BLOOD COUNT [id number] RBC 4.21 10e12/L 2017 Unknown COMPLETE BLOOD COUNT [id number] HEMOGLOBIN 12.8 g/dL 12/01/19 18 Unknown COMPLETE BLOOD COUNT [id number] HEMATOCRIT 39.0 % 12/01/19 18 Unknown COMPLETE BLOOD COUNT [id number] MCV 92.6 fL 8 Unknown COMPLETE BLOOD COUNT [id number] MCH 30.4 pg 8 Unknown COMPLETE BLOOD COUNT [id number] MCHC 32.8 g/dL 8 Unknown COMPLETE BLOOD COUNT [id number] PLATELET COUNT 202 10e9/L Unknown COMPLETE BLOOD COUNT 1657503 Mean Plt Volume 10.7 fL Unknown COMPLETE BLOOD COUNT [id number] Neut Auto 40.9 % 8 Unknown COMPLETE BLOOD COUNT [id number] Lymph Auto 46.3 % 12/01/19 18 Unknown COMPLETE BLOOD COUNT 7154377 Arthur Auto 9.3 % 8 Unknown COMPLETE BLOOD COUNT [id number] RDW 13.7 % 8 Unknown COMPLETE BLOOD COUNT [id number] Eos Auto 2.9 % 8 Unknown COMPLETE BLOOD COUNT [id number] Baso Auto 0.6 % 8 Unknown COMPLETE BLOOD COUNT [id number] Neutrophil Abs 2.13 10e9/L Unknown COMPLETE BLOOD COUNT [id number] Lymphocyte Abs 2.41 10e9/L Unknown COMPLETE BLOOD COUNT [id number] Monocyte Abs 0.48 10e9/L 11/06 Unknown COMPLETE BLOOD COUNT [id number] Eosinophil Abs 0.15 10e9/L Unknown COMPLETE BLOOD COUNT [id number] RDW-SD 45.2 fL 8 Unknown COMPLETE BLOOD COUNT [id number] Basophil Abs 0.03 10e9/L 11/06 [place] [address] Glucose 118 mg/dL 11/30 [place] [address] CREATININE 1.01 mg/dL [place] [address] BUN 14 mg/dL 11/30 [place] [address] SODIUM 141 mmol/L 11/06 [place] [address] POTASSIUM 4.0 mmol/L 11/06 [place] [address] CHLORIDE 108 mmol/L 11/06 [place] [address] Bicarbonate 25 mmol/L [place] [address] AGAP 8 mmol/L 11/30 [place] [address] CALCIUM 9.6 mg/dL 11/30 Unknown FREE T4 91670 T4 Free 1.23 ng/dL 11/30/2017 Unknown GFR CALC 1647847 GFR Non Afr Amr 53 mL/min 11/30/2017 Unk nown GFR CALC 1243527 GFR Afr Amr >60 mL/min 11/30/2017 Unknow n THYROID STIMULATING HORMONE 14606 TSH 2.124 uIU/mL 11/30/2017 Unknown LIPID GROUP 24767 Cholesterol 152 mg/dL 09/28/2017 Unkno wn LIPID GROUP 89218 Triglyceride 151 mg/dL 09/28/2017 Unkn own LIPID GROUP 89145 HDL CHOLESTEROL 47 mg/dL 09/28/2017 U nknown LIPID GROUP 77486 Chol/HDL Ratio 3.23 ratio 09/28/2017 U nknown LIPID GROUP 19172 NON-HDL Chol 105 mg/dL 09/28/2017 Unkn own LIPID GROUP 35668 LDL Cholesterol 75 mg/dL 09/28/2017 U nknown ASSAY OF TROPONIN QUANT 57291 Troponin-I <0.30 ng/mL Unknown COMPREHENSIVE METABOLIC 75558 AST 20 U/L 2017 Unknown COMPREHENSIVE METABOLIC 21127 ALT 14 U/L 2017 Unknown COMPREHENSIVE METABOLIC 12978 BUN 19 mg/dL 2017 Unknown COMPREHENSIVE METABOLIC 90488 ALBUMIN 4.2 g/dL 2017 Unknown COMPREHENSIVE METABOLIC 20159 CHLORIDE 102 mmol/L 09/27 Unknown COMPREHENSIVE METABOLIC 25663 Bili Total 0.4 mg/dL 09/27 Unknown COMPREHENSIVE METABOLIC 89855 ALK PHOS 66 U/L 2017 Unknown COMPREHENSIVE METABOLIC 22132 SODIUM 135 mmol/L 09/27 Unknown COMPREHENSIVE METABOLIC 37351 CREATININE 1.01 mg/dL 09/05 Unknown COMPREHENSIVE METABOLIC 27969 CALCIUM 9.3 mg/dL 2017 Unknown COMPREHENSIVE METABOLIC 15977 POTASSIUM 4.8 mmol/L 09/27 Unknown COMPREHENSIVE METABOLIC 37559 Total Protein 7.0 g/dL Unknown COMPREHENSIVE METABOLIC 65482 Glucose 91 mg/dL 2017 Unknown COMPREHENSIVE METABOLIC 79331 Bicarbonate 23 mmol/L 09/05 Unknown COMPREHENSIVE METABOLIC 70643 AGAP 10 mmol/L 2017 Unknown COMPLETE BLOOD COUNT [id number] WBC 7.5 10e9/L 09/28/19 18 Unknown COMPLETE BLOOD COUNT [id number] RBC 4.13 10e12/L 2017 Unknown COMPLETE BLOOD COUNT [id number] HEMOGLOBIN 12.6 g/dL 09/28/19 18 Unknown COMPLETE BLOOD COUNT [id number] HEMATOCRIT 38.4 % 09/28/19 18 Unknown COMPLETE BLOOD COUNT [id number] MCV 93.0 fL 8 Unknown COMPLETE BLOOD COUNT [id number] MCH 30.5 pg 8 Unknown COMPLETE BLOOD COUNT [id number] MCHC 32.8 g/dL 8 Unknown COMPLETE BLOOD COUNT [id number] PLATELET COUNT 204 10e9/L Unknown COMPLETE BLOOD COUNT [id number] Mean Plt Volume 10.9 fL Unknown COMPLETE BLOOD COUNT [id number] Neut Auto 43.1 % 8 Unknown COMPLETE BLOOD COUNT [id number] Lymph Auto 45.0 % 09/28/19 18 Unknown COMPLETE BLOOD COUNT [id number] Arthur Auto 9.2 % 8 Unknown COMPLETE BLOOD COUNT [id number] RDW 13.4 % 8 Unknown COMPLETE BLOOD COUNT [id number] Eos Auto 2.3 % 8 Unknown COMPLETE BLOOD COUNT [id number] Baso Auto 0.4 % 8 Unknown COMPLETE BLOOD COUNT [id number] Neutrophil Abs 3.23 10e9/L Unknown COMPLETE BLOOD COUNT [id number] Lymphocyte Abs 3.38 10e9/L Unknown COMPLETE BLOOD COUNT [id number] Monocyte Abs 0.69 10e9/L 09/05 Unknown COMPLETE BLOOD COUNT [id number] Eosinophil Abs 0.17 10e9/L Unknown COMPLETE BLOOD COUNT [id number] RDW-SD 44.4 fL 8 Unknown COMPLETE BLOOD COUNT [id number] Basophil Abs 0.03 10e9/L 09/05 Unknown GFR CALC [id number] GFR Non Afr Amr 53 mL/min 09/27/2017 Unk nown GFR CALC [id number] GFR Afr Amr >60 mL/min 09/27/2017 Unknow n GLYCOSYLATED HEMOGLOBIN TEST 18727 Hgb A1c 64896-1 5.4 % 0 09/27/2017 Unknown MEAN GLUC [id number] Calc Mean Gluc 108 mg/dL 09/27/2017 Unkn own MEAN GLUC [id number] Calc Mean Gluc 114 mg/dL 11/01/2016 Unkn own LIPID GROUP 31141 Cholesterol 146 mg/dL 11/01/2016 Unkno wn [facility] 12931 Triglyceride 119 mg/dL 11/01/2016 Unkn own [facility] 94612 HDL CHOLESTEROL 47 mg/dL 11/01/2016 U nknown [facility] 80602 Chol/HDL Ratio 3.11 ratio 11/01/2016 U nknown [facility] 59042 NON-HDL Chol 99 mg/dL 11/01/2016 Unkn own [facility] 85521 LDL Cholesterol 75 mg/dL 11/01/2016 U nknown GLYCOSYLATED HEMOGLOBIN TEST 57372 Hgb A1c 55466-7 5.6 % 0 11/01/2016 Unknown COMPREHENSIVE METABOLIC 30184 AST 22 U/L 2016 Unknown COMPREHENSIVE METABOLIC 78286 ALT 12 U/L 2016 Unknown COMPREHENSIVE METABOLIC 75830 BUN 17 mg/dL 2016 Unknown COMPREHENSIVE METABOLIC 73205 ALBUMIN 4.0 g/dL 2016 Unknown COMPREHENSIVE METABOLIC 39361 CHLORIDE 110 mmol/L 11/01 Unknown COMPREHENSIVE METABOLIC 65036 Bili Total 0.4 mg/dL 11/01 Unknown COMPREHENSIVE METABOLIC 91507 ALK PHOS 63 U/L 2016 Unknown COMPREHENSIVE METABOLIC 95933 SODIUM 140 mmol/L 11/01 Unknown COMPREHENSIVE METABOLIC 04692 CREATININE 1.05 mg/dL 10/06 Unknown COMPREHENSIVE METABOLIC 07296 CALCIUM 9.2 mg/dL 2016 Unknown COMPREHENSIVE METABOLIC 07211 POTASSIUM 4.2 mmol/L 11/01 Unknown COMPREHENSIVE METABOLIC 62875 Total Protein 6.2 g/dL Unknown COMPREHENSIVE METABOLIC 60948 Glucose 87 mg/dL 2016 Unknown COMPREHENSIVE METABOLIC 62586 Bicarbonate 24 mmol/L 10/06 Unknown COMPREHENSIVE METABOLIC 03561 AGAP 6 mmol/L 2016 Unknown GFR CALC 2585920 GFR Non Afr Amr 51 mL/min 11/01/2016 Unk nown GFR CALC 6450975 GFR Afr Amr >60 mL/min 11/01/2016 Unknow n COMPLETE BLOOD COUNT 3999698 WBC 6.7 10e9/L 11/02/19 17 Unknown COMPLETE BLOOD COUNT [id number] RBC 4.04 10e12/L 2016 Unknown COMPLETE BLOOD COUNT 8545232 HEMOGLOBIN 12.1 g/dL 11/02/19 17 Unknown COMPLETE BLOOD COUNT 7925986 HEMATOCRIT 38.0 % 11/02/19 17 Unknown COMPLETE BLOOD COUNT 1479332 MCV 94.1 fL 7 Unknown COMPLETE BLOOD COUNT 7125272 MCH 30.0 pg 7 Unknown COMPLETE BLOOD COUNT 9595131 MCHC 31.8 g/dL 7 Unknown COMPLETE BLOOD COUNT 5208826 PLATELET COUNT 206 10e9/L Unknown COMPLETE BLOOD COUNT 7207147 Mean Plt Volume 11.3 fL Unknown COMPLETE BLOOD COUNT 8532042 Neut Auto 35.8 % 7 Unknown COMPLETE BLOOD COUNT 8489270 Lymph Auto 51.6 % 11/02/19 17 Unknown COMPLETE BLOOD COUNT 7770270 Arthur Auto 8.8 % 7 Unknown COMPLETE BLOOD COUNT 4384848 RDW 13.5 % 7 Unknown COMPLETE BLOOD COUNT 1601880 Eos Auto 3.4 % 7 Unknown COMPLETE BLOOD COUNT 2604280 Baso Auto 0.4 % 7 Unknown COMPLETE BLOOD COUNT 7635947 Neutrophil Abs 2.40 10e9/L Unknown COMPLETE BLOOD COUNT 5614779 Lymphocyte Abs 3.46 10e9/L Unknown COMPLETE BLOOD COUNT 5098074 Monocyte Abs 0.59 10e9/L 10/06 Unknown COMPLETE BLOOD COUNT 5357695 Eosinophil Abs 0.23 10e9/L Unknown COMPLETE BLOOD COUNT 5712994 RDW-SD 45.3 fL 7 Unknown COMPLETE BLOOD COUNT 6718303 Basophil Abs 0.03 10e9/L 10/06 Unknown THYROID STIMULATING HORMONE 29301 TSH 1.981 uIU/mL 11/01/2016 Unknown COMPLETE BLOOD COUNT 0353569 WBC 6.0 10e9/L 05/14/19 17 Unknown COMPLETE BLOOD COUNT 7369549 RBC 4.29 10e12/L 2016 Unknown COMPLETE BLOOD COUNT 2380655 HEMOGLOBIN 12.9 g/dL 05/14/19 17 Unknown COMPLETE BLOOD COUNT 2361547 HEMATOCRIT 38.4 % 05/14/19 17 Unknown COMPLETE BLOOD COUNT 3008209 MCV 89.5 fL 7 Unknown COMPLETE BLOOD COUNT 7245391 MCH 30.1 pg 7 Unknown COMPLETE BLOOD COUNT 8586582 MCHC 33.6 g/dL 7 Unknown COMPLETE BLOOD COUNT 7556921 PLATELET COUNT 181 10e9/L 11/2016 Unknown COMPLETE BLOOD COUNT 8459885 Mean Plt Volume 11.7 fL 11/2016 Unknown COMPLETE BLOOD COUNT 5394941 Neut Auto 36.9 % 7 Unknown COMPLETE BLOOD COUNT 6725191 Lymph Auto 50.4 % 05/14/19 17 Unknown COMPLETE BLOOD COUNT 9192741 Arthur Auto 9.0 % 7 Unknown COMPLETE BLOOD COUNT 4398601 RDW 13.7 % 7 Unknown COMPLETE BLOOD COUNT 3595140 Eos Auto 3.4 % 7 Unknown COMPLETE BLOOD COUNT 3173960 Baso Auto 0.3 % 7 Unknown COMPLETE BLOOD COUNT 8747159 Neutrophil Abs 2.21 10e9/L Unknown COMPLETE BLOOD COUNT 9349098 Lymphocyte Abs 3.02 10e9/L Unknown COMPLETE BLOOD COUNT 1085019 Monocyte Abs 0.54 10e9/L 11/2016 Unknown COMPLETE BLOOD COUNT 1882447 Eosinophil Abs 0.20 10e9/L Unknown COMPLETE BLOOD COUNT 0483765 RDW-SD 44.0 fL 7 Unknown COMPLETE BLOOD COUNT 1985941 Basophil Abs 0.02 10e9/L 11/2016 Unknown GLYCOSYLATED HEMOGLOBIN TEST 17274 Hgb A1c 04777-3 5.4 % 0 05/13/2016 Unknown THYROID STIMULATING HORMONE 26684 TSH 2.200 uIU/mL 05/13/2016 Unknown GFR CALC 6338905 GFR Non Afr Amr 50 mL/min 05/13/2016 Unk nown GFR CALC 5094687 GFR Afr Amr >60 mL/min 05/13/2016 Unknow n MEAN GLUC 2624121 Calc Mean Gluc 108 mg/dL 05/13/2016 Unkn own COMPREHENSIVE METABOLIC 52143 AST 18 U/L 2016 Unknown COMPREHENSIVE METABOLIC 34282 ALT 10 U/L 2016 Unknown COMPREHENSIVE METABOLIC 31546 BUN 20 mg/dL 2016 Unknown COMPREHENSIVE METABOLIC 74586 ALBUMIN 4.1 g/dL 2016 Unknown COMPREHENSIVE METABOLIC 37874 CHLORIDE 109 mmol/L 05/13 Unknown COMPREHENSIVE METABOLIC 43862 Bili Total 0.6 mg/dL 05/13 Unknown COMPREHENSIVE METABOLIC 72064 ALK PHOS 64 U/L 2016 Unknown COMPREHENSIVE METABOLIC 07404 SODIUM 141 mmol/L 05/13 Unknown COMPREHENSIVE METABOLIC 15699 CREATININE 1.06 mg/dL 11/2016 Unknown COMPREHENSIVE METABOLIC 23095 CALCIUM 9.9 mg/dL 2016 Unknown COMPREHENSIVE METABOLIC 11428 POTASSIUM 4.2 mmol/L 05/13 Unknown COMPREHENSIVE METABOLIC 66336 Total Protein 6.3 g/dL Unknown COMPREHENSIVE METABOLIC 05538 Glucose 99 mg/dL 2016 Unknown COMPREHENSIVE METABOLIC 77284 Bicarbonate 21 mmol/L 11/2016 Unknown COMPREHENSIVE METABOLIC 74105 AGAP 11 mmol/L 2016 Unknown [facility] 78031 Cholesterol 169 mg/dL 11/25/2015 Unkno wn [facility] 09836 Triglyceride 165 mg/dL 11/25/2015 Unkn own [facility] 10049 HDL CHOLESTEROL 43 mg/dL 11/25/2015 U nknown [facility] 32524 Chol/HDL Ratio 3.93 ratio 11/25/2015 U nknown [facility] 88874 NON-HDL Chol 126 mg/dL 11/25/2015 Unkn own [facility] 77011 LDL Cholesterol 93 mg/dL 11/25/2015 U nknown COMPREHENSIVE METABOLIC 17466 AST 18 U/L 2015 Unknown COMPREHENSIVE METABOLIC 57247 ALT 10 U/L 2015 Unknown COMPREHENSIVE METABOLIC 05060 BUN 20 mg/dL 2015 Unknown COMPREHENSIVE METABOLIC 29243 ALBUMIN 3.9 g/dL 2015 Unknown COMPREHENSIVE METABOLIC 18047 CHLORIDE 110 mmol/L 11/24 Unknown COMPREHENSIVE METABOLIC 01953 Bili Total 0.5 mg/dL 11/24 Unknown COMPREHENSIVE METABOLIC 31435 ALK PHOS 72 U/L 2015 Unknown COMPREHENSIVE METABOLIC 55351 SODIUM 141 mmol/L 11/24 Unknown COMPREHENSIVE METABOLIC 40172 CREATININE 1.12 mg/dL 11/06 Unknown COMPREHENSIVE METABOLIC 50767 CALCIUM 9.7 mg/dL 2015 Unknown COMPREHENSIVE METABOLIC 91518 POTASSIUM 4.4 mmol/L 11/24 Unknown COMPREHENSIVE METABOLIC 64362 Total Protein 6.2 g/dL Unknown COMPREHENSIVE METABOLIC 02636 Glucose 90 mg/dL 2015 Unknown COMPREHENSIVE METABOLIC 12010 Bicarbonate 23 mmol/L 11/06 Unknown COMPREHENSIVE METABOLIC 17763 AGAP 8 mmol/L 2015 Unknown GFR CALC 6413420 GFR Non Afr Amr 47 mL/min 11/25/2015 Unk nown GFR CALC 3344372 GFR Afr Amr 57 mL/min 11/25/2015 Unknown GLYCOSYLATED HEMOGLOBIN TEST 93770 Hgb A1c 52373-3 5.5 % 0 11/25/2015 Unknown THYROID STIMULATING HORMONE 08233 TSH 2.537 uIU/mL 11/25/2015 Unknown FREE T4 04902 T4 Free 1.36 ng/dL 11/25/2015 Unknown COMPLETE BLOOD COUNT 9403369 WBC 6.8 10e9/L 11/25/19 16 Unknown COMPLETE BLOOD COUNT 3567310 RBC 4.20 10e12/L 2015 Unknown COMPLETE BLOOD COUNT 2350616 HEMOGLOBIN 12.5 g/dL 11/25/19 16 Unknown COMPLETE BLOOD COUNT 1778621 HEMATOCRIT 38.0 % 11/25/19 16 Unknown COMPLETE BLOOD COUNT 0342703 MCV 90.5 fL 6 Unknown COMPLETE BLOOD COUNT 7763222 MCH 29.8 pg 6 Unknown COMPLETE BLOOD COUNT 9878494 MCHC 32.9 g/dL 6 Unknown COMPLETE BLOOD COUNT 6619760 PLATELET COUNT 197 10e9/L Unknown COMPLETE BLOOD COUNT 9460423 Mean Plt Volume 11.7 fL Unknown COMPLETE BLOOD COUNT 4814674 Neut Auto 41.3 % 6 Unknown COMPLETE BLOOD COUNT 1701929 Lymph Auto 47.1 % 11/25/19 16 Unknown COMPLETE BLOOD COUNT 9354452 Arthur Auto 7.8 % 6 Unknown COMPLETE BLOOD COUNT 7552449 RDW 13.8 % 6 Unknown COMPLETE BLOOD COUNT 4705887 Eos Auto 3.4 % 6 Unknown COMPLETE BLOOD COUNT 5803433 Baso Auto 0.4 % 6 Unknown COMPLETE BLOOD COUNT 5712290 Neutrophil Abs 2.81 10e9/L Unknown COMPLETE BLOOD COUNT 1165454 Lymphocyte Abs 3.20 10e9/L Unknown COMPLETE BLOOD COUNT 8745420 Monocyte Abs 0.53 10e9/L 11/06 Unknown COMPLETE BLOOD COUNT 3834502 Eosinophil Abs 0.23 10e9/L Unknown COMPLETE BLOOD COUNT 9878842 RDW-SD 44.4 fL 6 Unknown COMPLETE BLOOD COUNT 3422759 Basophil Abs 0.03 10e9/L 11/06 Unknown MEAN GLUC 6042987 Calc Mean Gluc 111 mg/dL 11/25/2015 [place] [address] Glucose 89 MG/DL 02/19 [place] [address] CREATININE 1.12 MG/DL [place] [address] BUN 20 MG/DL 02/19 [place] [address] SODIUM 139 MMOL/L 02/04 [place] [address] POTASSIUM 4.6 MMOL/L 02/04 [place] [address] CHLORIDE 108 MMOL/L 02/04 [place] [address] BICARB 26 MMOL/L 02/19 [place] [address] ANION GAP 5 MEQ/L 02/19 [place] [address] CALCIUM 10.0 MG/DL 02/04 Unknown GFR CALC 8821817 GFR AA 57.0L ML/MIN 02/19/2015 Unknow n GFR CALC 3021784 GFR NON-AA 47.0L ML/MIN 02/19/2015 Unkno wn THYROID STIMULATING HORMONE 70489 TSH 2.378 uIU/ML 11/14/2014 Unknown COMPLETE BLOOD COUNT 6107554 WBC 6.4 10e9/L 11/15/19 15 Unknown COMPLETE BLOOD COUNT 7964342 RBC 3.99 10e12/L 2014 Unknown COMPLETE BLOOD COUNT 3666350 HGB 11.9 g/dL 5 Unknown COMPLETE BLOOD COUNT 9795949 HCT DET 36.9 % 5 Unknown COMPLETE BLOOD COUNT 6068665 MCV 92.5 fL 5 Unknown COMPLETE BLOOD COUNT 2742086 MCH 29.8 pg 5 Unknown COMPLETE BLOOD COUNT 7450091 MCHC 32.2 g/dL 5 Unknown COMPLETE BLOOD COUNT 1355237 PLT 172 10e9/L 11/15/19 15 Unknown COMPLETE BLOOD COUNT 6867239 MPV 11.7 fL 5 Unknown COMPLETE BLOOD COUNT 3046413 CINTHYA % 40.4 % 5 Unknown COMPLETE BLOOD COUNT 6943832 LY % 48.0 % 5 Unknown COMPLETE BLOOD COUNT 4932796 MON % 8.3 % 5 Unknown COMPLETE BLOOD COUNT 3976485 EOS % 2.8 % 5 Unknown COMPLETE BLOOD COUNT 8172118 BASO % 0.5 % 5 Unknown COMPLETE BLOOD COUNT 0443942 RDW 13.6 % 5 Unknown COMPLETE BLOOD COUNT 1207254 ABS CINTHYA 2.59 10e9/L 015 Unknown COMPLETE BLOOD COUNT 7896334 ABS LYMPH 3.07 10e9/L 015 Unknown COMPLETE BLOOD COUNT 9545560 ABS MONO 0.53 10e9/L 015 Unknown COMPLETE BLOOD COUNT 2193697 ABS EOS 0.18 10e9/L 015 Unknown COMPLETE BLOOD COUNT 3098222 ABS BASO 0.03 10e9/L 015 Unknown COMPLETE BLOOD COUNT 1522129 RDW-SD 44.9 fL 5 Unknown [facility] 76195 HDL TEST 42 MG/DL 11/14/2014 Unknown [facility] 49786 TRIG 177 MG/DL 11/14/2014 Unknown [facility] 41881 TEST LDL 72 MG/DL 11/14/2014 Unknown [facility] 06893 CHOL 149 MG/DL 11/14/2014 Unknown [facility] 80235 RCHOL/HDL 3.55 RATIO 11/14/2014 Unknow n [facility] 53305 NON-HDL CH 107 MG/DL 11/14/2014 Unknow n GLYCOSYLATED HEMOGLOBIN TEST 05832 A1C HPLC 61544-9 5.5 % 0 11/14/2014 Unknown FREE T4 17910 FREE T4 1.39 NG/DL 11/14/2014 Unknown GFR CALC 8631727 GFR AA 55.0L ML/MIN 11/14/2014 Unknow n GFR CALC 6298955 GFR NON-AA 46.0L ML/MIN 11/14/2014 Unkno wn COMPREHENSIVE METABOLIC 05315 AST 17 U/L 2014 Unknown COMPREHENSIVE METABOLIC 63619 ALT 10 IU/L 2014 Unknown COMPREHENSIVE METABOLIC 14647 BUN 20 MG/DL 2014 Unknown COMPREHENSIVE METABOLIC 78024 ALBUMIN 3.9 GM/DL 2014 Unknown COMPREHENSIVE METABOLIC 13762 CHLORIDE 111 MMOL/L 11/14 Unknown COMPREHENSIVE METABOLIC 24821 BILI TOT 0.4 MG/DL 2014 Unknown COMPREHENSIVE METABOLIC 37188 ALK PHOS 70 U/L 2014 Unknown COMPREHENSIVE METABOLIC 40938 SODIUM 142 MMOL/L 11/14 Unknown COMPREHENSIVE METABOLIC 33276 CREATININE 1.16 MG/DL 11/05 Unknown COMPREHENSIVE METABOLIC 50890 CALCIUM 9.4 MG/DL 2014 Unknown COMPREHENSIVE METABOLIC 97079 POTASSIUM 4.6 MMOL/L 11/14 Unknown COMPREHENSIVE METABOLIC 65523 PROT TOT 6.2 GM/DL 2014 Unknown COMPREHENSIVE METABOLIC 41059 Glucose 90 MG/DL 2014 Unknown COMPREHENSIVE METABOLIC 86907 BICARB 24 MMOL/L 2014 Unknown COMPREHENSIVE METABOLIC 63385 ANION GAP 7 MEQ/L 2014 Unknown THYROID STIMULATING HORMONE 67790 TSH 2.427 uIU/ML 05/10/2014 Unknown [facility] 59807 HDL TEST 47 MG/DL 05/10/2014 Unknown [facility] 34351 TRIG 145 MG/DL 05/10/2014 Unknown [facility] 56283 TEST LDL 73 MG/DL 05/10/2014 Unknown [facility] 81180 CHOL 149 MG/DL 05/10/2014 Unknown [facility] 42644 RCHOL/HDL 3.17 RATIO 05/10/2014 Unknow n [facility] 10262 NON-HDL CH 102 MG/DL 05/10/2014 Unknow n COMPREHENSIVE METABOLIC 17064 AST 17 U/L 2014 Unknown COMPREHENSIVE METABOLIC 23476 ALT 9 IU/L 2014 Unknown COMPREHENSIVE METABOLIC 95502 BUN 19 MG/DL 2014 Unknown COMPREHENSIVE METABOLIC 55389 ALBUMIN 4.3 GM/DL 2014 Unknown COMPREHENSIVE METABOLIC 85272 CHLORIDE 108 MMOL/L 05/10 Unknown COMPREHENSIVE METABOLIC 18505 BILI TOT 0.5 MG/DL 2014 Unknown COMPREHENSIVE METABOLIC 30152 ALK PHOS 68 U/L 2014 Unknown COMPREHENSIVE METABOLIC 90328 SODIUM 140 MMOL/L 05/10 Unknown COMPREHENSIVE METABOLIC 41844 CREATININE 1.08 MG/DL 08/2014 Unknown COMPREHENSIVE METABOLIC 94408 CALCIUM 9.9 MG/DL 2014 Unknown COMPREHENSIVE METABOLIC 29379 POTASSIUM 4.3 MMOL/L 05/10 Unknown COMPREHENSIVE METABOLIC 48788 PROT TOT 7.2 GM/DL 2014 Unknown COMPREHENSIVE METABOLIC 62249 Glucose 94 MG/DL 2014 Unknown COMPREHENSIVE METABOLIC 36483 BICARB 26 MMOL/L 2014 Unknown COMPREHENSIVE METABOLIC 37180 ANION GAP 6 MEQ/L 2014 Unknown GFR CALC 3174719 GFR AA 60.0L ML/MIN 05/10/2014 Unknow n GFR CALC 5568969 GFR NON-AA 49.0L ML/MIN 05/10/2014 Unkno wn GLYCOSYLATED HEMOGLOBIN TEST 31535 A1C HPLC 35775-9 5.6 % 0 05/10/2014 Unknown COMPLETE BLOOD COUNT 4113260 WBC 7.2 10e9/L 05/11/19 15 Unknown COMPLETE BLOOD COUNT 8065795 RBC 4.28 10e12/L 2014 Unknown COMPLETE BLOOD COUNT 1112362 HGB 12.8 g/dL 5 Unknown COMPLETE BLOOD COUNT 9964159 HCT DET 39.3 % 5 Unknown COMPLETE BLOOD COUNT 2162283 MCV 91.8 fL 5 Unknown COMPLETE BLOOD COUNT 4704975 MCH 29.9 pg 5 Unknown COMPLETE BLOOD COUNT 5061875 MCHC 32.6 g/dL 5 Unknown COMPLETE BLOOD COUNT 4163626 PLT 189 10e9/L 05/11/19 15 Unknown COMPLETE BLOOD COUNT 8421107 MPV 11.2 fL 5 Unknown COMPLETE BLOOD COUNT 2994697 CINTHYA % 38.0 % 5 Unknown COMPLETE BLOOD COUNT 8340450 LY % 51.0 % 5 Unknown COMPLETE BLOOD COUNT 0302842 MON % 7.7 % 5 Unknown COMPLETE BLOOD COUNT 0772890 EOS % 2.9 % 5 Unknown COMPLETE BLOOD COUNT 6593226 BASO % 0.4 % 5 Unknown COMPLETE BLOOD COUNT 4870867 RDW 14.0 % 5 Unknown COMPLETE BLOOD COUNT 8663166 ABS CINTHYA 2.74 10e9/L 015 Unknown COMPLETE BLOOD COUNT 9612844 ABS LYMPH 3.67 10e9/L 015 Unknown COMPLETE BLOOD COUNT 8038262 ABS MONO 0.55 10e9/L 015 Unknown COMPLETE BLOOD COUNT 2096392 ABS EOS 0.21 10e9/L 015 Unknown COMPLETE BLOOD COUNT 2793979 ABS BASO 0.03 10e9/L 015 Unknown COMPLETE BLOOD COUNT 7422727 RDW-SD 46.1 fL 5 Unknown FREE T4 19964 FREE T4 1.14 NG/DL 05/10/2014 Unknown GLYCOSYLATED HEMOGLOBIN TEST 16526 A1C HPLC 09462-7 5.2 % 0 03/29/2013 Unknown FREE T4 99988 FREE T4 1.40 NG/DL 03/28/2013 Unknown GFR CALC 9906013 GFR AA >60 ML/MIN 03/28/2013 Unknown GFR CALC 3534927 GFR NON-AA 52.0L ML/MIN 03/28/2013 Unkno wn COMPREHENSIVE METABOLIC 58892 AST 15 U/L 2013 Unknown COMPREHENSIVE METABOLIC 85377 ALT 9 IU/L 2013 Unknown COMPREHENSIVE METABOLIC 69423 BUN 17 MG/DL 2013 Unknown COMPREHENSIVE METABOLIC 38993 ALBUMIN 4.0 GM/DL 2013 Unknown COMPREHENSIVE METABOLIC 83144 CHLORIDE 112 MMOL/L 03/28 Unknown COMPREHENSIVE METABOLIC 40844 BILI TOT 0.5 MG/DL 2013 Unknown COMPREHENSIVE METABOLIC 40613 ALK PHOS 66 U/L 2013 Unknown COMPREHENSIVE METABOLIC 14464 SODIUM 140 MMOL/L 03/28 Unknown COMPREHENSIVE METABOLIC 11225 CREATININE 1.03 MG/DL 03/08 Unknown COMPREHENSIVE METABOLIC 14539 CALCIUM 9.5 MG/DL 2013 Unknown COMPREHENSIVE METABOLIC 57075 POTASSIUM 4.1 MMOL/L 03/28 Unknown COMPREHENSIVE METABOLIC 85140 PROT TOT 6.2 GM/DL 2013 Unknown COMPREHENSIVE METABOLIC 26138 Glucose 102 MG/DL 2013 Unknown COMPREHENSIVE METABOLIC 12286 BICARB 23 MMOL/L 2013 Unknown COMPREHENSIVE METABOLIC 74102 ANION GAP 5 MEQ/L 2013 Unknown THYROID STIMULATING HORMONE 85628 TSH 2.074 uIU/ML 03/28/2013 Unknown VITAMIN B 12 FOLIC ACID 82502|28064 VIT B 12 423 PG/ML 03/08 Unknown VITAMIN B 12 FOLIC ACID 77090|43177 FOLIC ACID 19.7 NG/ML Unknown [facility] 03515 HDL TEST 40 MG/DL 03/28/2013 Unknown [facility] 65037 TRIG 145 MG/DL 03/28/2013 Unknown [facility] 18745 TEST LDL 81 MG/DL 03/28/2013 Unknown [facility] 47492 CHOL 150 MG/DL 03/28/2013 Unknown [facility] GROUP 59870 RCHOL/HDL 3.75 RATIO 03/28/2013 Unknow n COMPLETE BLOOD COUNT 5792702 WBC 6.0 10e9/L 03/28/19 14 Unknown COMPLETE BLOOD COUNT 6862017 RBC 4.26 10e12/L 2013 Unknown COMPLETE BLOOD COUNT 1407128 HGB 12.7 g/dL 4 Unknown COMPLETE BLOOD COUNT 5779238 HCT DET 38.7 % 4 Unknown COMPLETE BLOOD COUNT 2297469 MCV 90.8 fL 4 Unknown COMPLETE BLOOD COUNT 2991818 MCH 29.8 pg 4 Unknown COMPLETE BLOOD COUNT 9915095 MCHC 32.8 g/dL 4 Unknown COMPLETE BLOOD COUNT 7394517 PLT 178 10e9/L 03/28/19 14 Unknown COMPLETE BLOOD COUNT 0446780 MPV 11.7 fL 4 Unknown COMPLETE BLOOD COUNT 7391267 CINTHYA % 30.5 % 4 Unknown COMPLETE BLOOD COUNT 6286334 LY % 55.4 % 4 Unknown COMPLETE BLOOD COUNT 2374788 MON % 9.0 % 4 Unknown COMPLETE BLOOD COUNT 1620312 EOS % 4.4 % 4 Unknown COMPLETE BLOOD COUNT 7357402 BASO % 0.7 % 4 Unknown COMPLETE BLOOD COUNT 4007945 RDW 13.3 % 4 Unknown COMPLETE BLOOD COUNT 8858376 ABS CINTHYA 1.83 10e9/L 014 Unknown COMPLETE BLOOD COUNT 3078322 ABS LYMPH 3.32 10e9/L 014 Unknown COMPLETE BLOOD COUNT 3337361 ABS MONO 0.54 10e9/L 014 Unknown COMPLETE BLOOD COUNT 5696447 ABS EOS 0.26 10e9/L 014 Unknown COMPLETE BLOOD COUNT 1053341 ABS BASO 0.04 10e9/L 014 Unknown COMPLETE BLOOD COUNT 1468715 RDW-SD 43.2 fL 4 Unknown HEMOGLOBIN A1C (GLYCOSYLATED) 8185622 A1C HPLC 97943-8 5.5 % 02/24/2012 Unknown COMPLETE BLOOD COUNT 8271052 WBC 6.0 10e9/L 02/23/20 12 Unknown COMPLETE BLOOD COUNT 8883552 RBC 4.22 10e12/L 2011 Unknown COMPLETE BLOOD COUNT 7684037 HGB 12.4 g/dL 2 Unknown COMPLETE BLOOD COUNT 1481991 HCT DET 38.2 % 2 Unknown COMPLETE BLOOD COUNT 3464136 MCV 90.5 fL 2 Unknown COMPLETE BLOOD COUNT 1269677 MCH 29.4 pg 2 Unknown COMPLETE BLOOD COUNT 4808199 MCHC 32.5 g/dL 2 Unknown COMPLETE BLOOD COUNT 9096931 PLT 187 10e9/L 02/23/20 12 Unknown COMPLETE BLOOD COUNT 0244420 MPV 11.5 fL 2 Unknown COMPLETE BLOOD COUNT 9844373 CINTHYA % 36.4 % 2 Unknown COMPLETE BLOOD COUNT 3737830 LY % 51.0 % 2 Unknown COMPLETE BLOOD COUNT 4682281 MON % 8.7 % 2 Unknown COMPLETE BLOOD COUNT 9105303 EOS % 3.2 % 2 Unknown COMPLETE BLOOD COUNT 4694841 BASO % 0.7 % 2 Unknown COMPLETE BLOOD COUNT 9855214 RDW 13.7 % 2 Unknown COMPLETE BLOOD COUNT 2070914 ABS CINTHYA 2.18 10e9/L 012 Unknown COMPLETE BLOOD COUNT 0833361 ABS LYMPH 3.06 10e9/L 012 Unknown COMPLETE BLOOD COUNT 5814583 ABS MONO 0.52 10e9/L 012 Unknown COMPLETE BLOOD COUNT 4017327 ABS EOS 0.19 10e9/L 012 Unknown COMPLETE BLOOD COUNT 8769691 ABS BASO 0.04 10e9/L 012 Unknown COMPLETE BLOOD COUNT 6021473 RDW-SD 44.3 fL 2 Unknown LIPID GROUP 42518 HDL TEST 42 MG/DL 02/23/2012 Unknown LIPID GROUP 04395 TRIG 156 MG/DL 02/23/2012 Unknown LIPID GROUP 41691 TEST LDL 80 MG/DL 02/23/2012 Unknown LIPID GROUP 49864 CHOL 153 MG/DL 02/23/2012 Unknown LIPID GROUP 55346 RCHOL/HDL 3.64 RATIO 02/23/2012 Unknow n FREE T4 84947 FREE T4 1.22 NG/DL 02/23/2012 Unknown COMPREHENSIVE METABOLIC 22391 AST 20 U/L 2011 Unknown COMPREHENSIVE METABOLIC 88666 ALT 11 IU/L 2011 Unknown COMPREHENSIVE METABOLIC 41968 BUN 19 MG/DL 2011 Unknown COMPREHENSIVE METABOLIC 06991 ALBUMIN 4.3 GM/DL 2011 Unknown COMPREHENSIVE METABOLIC 62134 CHLORIDE 109 MMOL/L 02/22 Unknown COMPREHENSIVE METABOLIC 72301 BILI TOT 0.6 MG/DL 2011 Unknown COMPREHENSIVE METABOLIC 60495 ALK PHOS 84 U/L 2011 Unknown COMPREHENSIVE METABOLIC 99440 SODIUM 142 MMOL/L 02/22 Unknown COMPREHENSIVE METABOLIC 48106 CREATININE 1.09 MG/DL 02/04 Unknown COMPREHENSIVE METABOLIC 76636 CALCIUM 9.8 MG/DL 2011 Unknown COMPREHENSIVE METABOLIC 77433 POTASSIUM 4.2 MMOL/L 02/22 Unknown COMPREHENSIVE METABOLIC 51833 PROT TOT 6.4 GM/DL 2011 Unknown COMPREHENSIVE METABOLIC 95267 Glucose 89 MG/DL 2011 Unknown COMPREHENSIVE METABOLIC 04638 BICARB 25 MMOL/L 2011 Unknown COMPREHENSIVE METABOLIC 47953 ANION GAP 8 MEQ/L 2011 Unknown GFR CALC 1132364 GFR AA 60.0L ML/MIN 02/23/2012 Unknow n GFR CALC 2907776 GFR NON-AA 49.0L ML/MIN 02/23/2012 Unkno wn THYROID STIMULATING HORMONE 70038 TSH 2.450 uIU/ML 02/23/2012 Unknown COMPREHENSIVE METABOLIC 26300 AST 22 U/L 2011 Unknown COMPREHENSIVE METABOLIC 55521 ALT 14 IU/L 2011 Unknown COMPREHENSIVE METABOLIC 41823 BUN 21 MG/DL 2011 Unknown COMPREHENSIVE METABOLIC 75080 ALBUMIN 4.3 GM/DL 2011 Unknown COMPREHENSIVE METABOLIC 68971 CHLORIDE 106 MMOL/L 04/01 Unknown COMPREHENSIVE METABOLIC 32502 BILI TOT 0.4 MG/DL 2011 Unknown COMPREHENSIVE METABOLIC 89994 ALK PHOS 80 U/L 2011 Unknown COMPREHENSIVE METABOLIC 93764 SODIUM 141 MMOL/L 04/01 Unknown COMPREHENSIVE METABOLIC 32514 CREATININE 1.13 MG/DL 03/08 Unknown COMPREHENSIVE METABOLIC 07022 CALCIUM 9.4 MG/DL 2011 Unknown COMPREHENSIVE METABOLIC 98664 POTASSIUM 4.3 MMOL/L 04/01 Unknown COMPREHENSIVE METABOLIC 68186 PROT TOT 6.7 GM/DL 2011 Unknown COMPREHENSIVE METABOLIC 07051 Glucose 98 MG/DL 2011 Unknown COMPREHENSIVE METABOLIC 33865 BICARB 25 MMOL/L 2011 Unknown COMPREHENSIVE METABOLIC 84219 ANION GAP 10 MEQ/L 2011 Unknown LIPID GROUP 77213 HDL TEST 44 MG/DL 04/01/2011 Unknown LIPID GROUP 96369 TRIG 164 MG/DL 04/01/2011 Unknown LIPID GROUP 28326 TEST LDL 98 MG/DL 04/01/2011 Unknown LIPID GROUP 68649 CHOL 175 MG/DL 04/01/2011 Unknown LIPID GROUP 31349 RCHOL/HDL 3.98 RATIO 04/01/2011 Unknow n COMPLETE BLOOD COUNT 42577 WBC 6.7 10e9/L 04/01/19 12 Unknown COMPLETE BLOOD COUNT 92008 RBC 4.36 10e12/L 2011 Unknown COMPLETE BLOOD COUNT 71687 HGB 12.9 g/dL 2 Unknown COMPLETE BLOOD COUNT 68852 HCT DET 39.4 % 2 Unknown COMPLETE BLOOD COUNT 52269 MCV 90.4 fL 2 Unknown COMPLETE BLOOD COUNT 90208 MCH 29.6 pg 2 Unknown COMPLETE BLOOD COUNT 36532 MCHC 32.7 g/dL 2 Unknown COMPLETE BLOOD COUNT 83615 PLT 184 10e9/L 04/01/19 12 Unknown COMPLETE BLOOD COUNT 41828 MPV 10.9 fL 2 Unknown COMPLETE BLOOD COUNT 25454 CINTHYA % 41.5 % 2 Unknown COMPLETE BLOOD COUNT 14229 LY % 45.7 % 2 Unknown COMPLETE BLOOD COUNT 42823 MON % 9.4 % 2 Unknown COMPLETE BLOOD COUNT 66576 EOS % 3.0 % 2 Unknown COMPLETE BLOOD COUNT 40328 BASO % 0.4 % 2 Unknown COMPLETE BLOOD COUNT 44901 RDW 13.2 % 2 Unknown COMPLETE BLOOD COUNT 95113 ABS CINTHYA 2.78 10e9/L 012 Unknown COMPLETE BLOOD COUNT 26862 ABS LYMPH 3.06 10e9/L 012 Unknown COMPLETE BLOOD COUNT 87956 ABS MONO 0.63 10e9/L 012 Unknown COMPLETE BLOOD COUNT 84563 ABS EOS 0.20 10e9/L 012 Unknown COMPLETE BLOOD COUNT 57535 ABS BASO 0.03 10e9/L 012 Unknown COMPLETE BLOOD COUNT 37959 RDW-SD 42.3 fL 2 Unknown GFR CALC [id number] GFR AA 57.0L ML/MIN 04/01/2011 Unknow n GFR CALC [id number] GFR NON-AA 47.0L ML/MIN 04/01/2011 Unkno wn THYROID STIMULATING HORMONE 53644 TSH 2.663 uIU/ML 04/01/2011 Unknown FREE T4 56254 FREE T4 1.15 NG/DL 04/01/2011 Unknown THYROID STIMULATING HORMONE 01082 TSH 1.908 uIU/ML 07/06/2010 Unknown COMPLETE BLOOD COUNT 75888 WBC 6.4 10e9/L 07/07/19 11 Unknown COMPLETE BLOOD COUNT 37628 RBC 3.92 10e12/L 2010 Unknown COMPLETE BLOOD COUNT 07529 HGB 11.8 g/dL 1 Unknown COMPLETE BLOOD COUNT 46104 HCT DET 36.0 % 1 Unknown COMPLETE BLOOD COUNT 71731 MCV 91.8 fL 1 Unknown COMPLETE BLOOD COUNT 56726 MCH 30.1 pg 1 Unknown COMPLETE BLOOD COUNT 86097 MCHC 32.8 g/dL 1 Unknown COMPLETE BLOOD COUNT 51156 PLT 176 10e9/L 07/07/19 11 Unknown COMPLETE BLOOD COUNT 22983 MPV 11.4 fL 1 Unknown COMPLETE BLOOD COUNT 88310 CINTHYA % 50.4 % 1 Unknown COMPLETE BLOOD COUNT 98716 LY % 35.5 % 1 Unknown COMPLETE BLOOD COUNT 43260 MON % 10.2 % 1 Unknown COMPLETE BLOOD COUNT 47675 EOS % 3.3 % 1 Unknown COMPLETE BLOOD COUNT 80489 BASO % 0.6 % 1 Unknown COMPLETE BLOOD COUNT 81301 RDW 13.7 % 1 Unknown COMPLETE BLOOD COUNT 12552 ABS CINTHYA 3.23 10e9/L 011 Unknown COMPLETE BLOOD COUNT 62841 ABS LYMPH 2.27 10e9/L 011 Unknown COMPLETE BLOOD COUNT 59600 ABS MONO 0.65 10e9/L 011 Unknown COMPLETE BLOOD COUNT 58046 ABS EOS 0.21 10e9/L 011 Unknown COMPLETE BLOOD COUNT 45112 ABS BASO 0.04 10e9/L 011 Unknown COMPLETE BLOOD COUNT 71866 RDW-SD 45.3 fL 1 Unknown GFR CALC [id number] GFR AA >60 ML/MIN 07/06/2010 Unknown GFR CALC [id number] GFR NON-AA 53.0L ML/MIN 07/06/2010 Unkno wn FREE T4 19337 FREE T4 1.20 NG/DL 07/06/2010 Unknown COMPREHENSIVE METABOLIC 03042 AST 17 U/L 2010 Unknown COMPREHENSIVE METABOLIC 29362 ALT 9 IU/L 2010 Unknown COMPREHENSIVE METABOLIC 00196 BUN 16 MG/DL 2010 Unknown COMPREHENSIVE METABOLIC 63955 ALBUMIN 4.0 GM/DL 2010 Unknown COMPREHENSIVE METABOLIC 57332 CHLORIDE 108 MMOL/L 07/06 Unknown COMPREHENSIVE METABOLIC 88322 BILI TOT 0.5 MG/DL 2010 Unknown COMPREHENSIVE METABOLIC 56981 ALK PHOS 76 U/L 2010 Unknown COMPREHENSIVE METABOLIC 87012 SODIUM 139 MMOL/L 07/06 Unknown COMPREHENSIVE METABOLIC 88911 CREATININE 1.02 MG/DL 04/2010 Unknown COMPREHENSIVE METABOLIC 16686 CALCIUM 9.2 MG/DL 2010 Unknown COMPREHENSIVE METABOLIC 33382 POTASSIUM 4.5 MMOL/L 07/06 Unknown COMPREHENSIVE METABOLIC 19750 PROT TOT 6.1 GM/DL 2010 Unknown COMPREHENSIVE METABOLIC 29610 Glucose 93 MG/DL 2010 Unknown COMPREHENSIVE METABOLIC 79606 BICARB 26 MMOL/L 2010 Unknown COMPREHENSIVE METABOLIC 93150 ANION GAP 5 MEQ/L 2010 Unknown LIPID GROUP 91243 HDL TEST 46 MG/DL 07/06/2010 Unknown LIPID GROUP 31605 TRIG 102 MG/DL 07/06/2010 Unknown LIPID GROUP 48031 TEST LDL 88 MG/DL 07/06/2010 Unknown LIPID GROUP 21980 CHOL 154 MG/DL 07/06/2010 Unknown LIPID GROUP 56611 RCHOL/HDL 3.35 RATIO 07/06/2010 Unknow n Procedures Procedure Codes Date ROUTINE VENIPUNCTURE CPT-4: 22124 03/13/2019 ASSAY THYROID STIM HORMONE CPT-4: 46471 03/13/2019 COMPLETE CBC W/AUTO DIFF WBC CPT-4: 05053 03/13/2019 COMPREHEN METABOLIC PANEL CPT-4: 09492 03/13/2019 ROUTINE VENIPUNCTURE CPT-4: 73557 01/23/2019 LIPID PANEL CPT-4: 44665 01/23/2019 FLU VACC PRSV FREE INC ANTIG 65 AND OLDER CPT-4: 59960 12/26/2018 FLU VACC PRSV FREE INC ANTIG 65 AND OLDER CPT-4: 37330 12/26/2018 ADMIN INFLUENZA VIRUS VAC CPT-4: G0008 12/26/2018 COMPREHEN METABOLIC PANEL CPT-4: 91042 12/15/2018 ROUTINE VENIPUNCTURE CPT-4: 42487 12/15/2018 ROUTINE VENIPUNCTURE CPT-4: 64085 08/14/2018 ASSAY THYROID STIM HORMONE CPT-4: 60126 08/14/2018 COMPREHEN METABOLIC PANEL CPT-4: 69715 08/14/2018 COMPLETE CBC W/AUTO DIFF WBC CPT-4: 53355 08/14/2018 URINALYSIS NONAUTO W/O SCOPE CPT-4: 61905 05/10/2018 URINE CULTURE/ COLONY COUNT CPT-4: 75486 05/10/2018 URINE CULTURE/ COLONY COUNT CPT-4: 05852 12/06/2017 ROUTINE VENIPUNCTURE CPT-4: 20890 11/30/2017 ASSAY OF FREE THYROXINE CPT-4: 21059 11/30/2017 ASSAY THYROID STIM HORMONE CPT-4: 28993 11/30/2017 COMPLETE CBC W/AUTO DIFF WBC CPT-4: 33131 11/30/2017 METABOLIC PANEL TOTAL CA CPT-4: 30189 11/30/2017 FLU VACC PRSV FREE INC ANTIG 65 AND OLDER CPT-4: 76159 11/22/2017 ASSAY, GLUCOSE, BLOOD QUANT CPT-4: 83151 11/22/2017 ADMIN INFLUENZA VIRUS VAC CPT-4: G0008 11/22/2017 ROUTINE VENIPUNCTURE CPT-4: 86235 09/27/2017 COMPREHEN METABOLIC PANEL CPT-4: 24261 09/27/2017 COMPLETE CBC W/AUTO DIFF WBC CPT-4: 25387 09/27/2017 A1C HPLC CPT-4: 33929 09/27/2017 ASSAY OF TROPONIN QUANT CPT-4: 43021 09/27/2017 LIPID PANEL CPT-4: 32820 09/27/2017 THER/PROPH/DIAG INJ SC/IM CPT-4: 18219 05/30/2017 TRIAMCINOLONE ACET INJ NOS CPT-4: J3301 05/30/2017 URINALYSIS NONAUTO W/O SCOPE CPT-4: 58197 04/18/2017 URINE CULTURE/ COLONY COUNT CPT-4: 39687 04/18/2017 FLU VACC PRSV FREE INC ANTIG 65 AND OLDER CPT-4: 72088 12/10/2016 ADMIN INFLUENZA VIRUS VAC CPT-4: G0008 12/10/2016 ROUTINE VENIPUNCTURE CPT-4: 31027 11/01/2016 COMPREHEN METABOLIC PANEL CPT-4: 65765 11/01/2016 COMPLETE CBC W/AUTO DIFF WBC CPT-4: 08284 11/01/2016 LIPID PANEL CPT-4: 16303 11/01/2016 A1C HPLC CPT-4: 44323 11/01/2016 ASSAY THYROID STIM HORMONE CPT-4: 58242 11/01/2016 ROUTINE VENIPUNCTURE CPT-4: 51031 05/13/2016 ASSAY THYROID STIM HORMONE CPT-4: 96259 05/13/2016 COMPREHEN METABOLIC PANEL CPT-4: 13268 05/13/2016 COMPLETE CBC W/AUTO DIFF WBC CPT-4: 78402 05/13/2016 A1C HPLC CPT-4: 54718 05/13/2016 FLU VACC PRSV FREE INC ANTIG 65 AND OLDER CPT-4: 83110 12/12/2015 ADMIN INFLUENZA VIRUS VAC CPT-4: G0008 12/12/2015 ROUTINE VENIPUNCTURE CPT-4: 15737 11/25/2015 ASSAY OF FREE THYROXINE CPT-4: 77708 11/25/2015 ASSAY THYROID STIM HORMONE CPT-4: 77149 11/25/2015 COMPREHEN METABOLIC PANEL CPT-4: 16094 11/25/2015 COMPLETE CBC W/AUTO DIFF WBC CPT-4: 84643 11/25/2015 LIPID PANEL CPT-4: 04214 11/25/2015 A1C HPLC CPT-4: 44934 11/25/2015 URINALYSIS NONAUTO W/O SCOPE CPT-4: 00684 05/21/2015 ROUTINE VENIPUNCTURE CPT-4: 80882 02/19/2015 METABOLIC PANEL TOTAL CA CPT-4: 40575 02/19/2015 PRESCRIP TRANSMIT VIA ERX SY CPT-4: G8553 02/19/2015 FLU VACC PRSV FREE INC ANTIG 65 AND OLDER CPT-4: 82739 12/20/2014 ADMIN INFLUENZA VIRUS VAC CPT-4: G0008 12/20/2014 URINALYSIS NONAUTO W/O SCOPE CPT-4: 20379 11/19/2014 URINE CULTURE/ COLONY COUNT CPT-4: 15571 11/19/2014 ROUTINE VENIPUNCTURE CPT-4: 46350 11/14/2014 ASSAY OF FREE THYROXINE CPT-4: 89481 11/14/2014 ASSAY THYROID STIM HORMONE CPT-4: 28460 11/14/2014 COMPREHEN METABOLIC PANEL CPT-4: 48780 11/14/2014 COMPLETE CBC W/AUTO DIFF WBC CPT-4: 51768 11/14/2014 LIPID PANEL CPT-4: 78270 11/14/2014 A1C HPLC CPT-4: 86416 11/14/2014 CERUM REMOVAL CPT-4: 85312 09/27/2014 PRESCRIP TRANSMIT VIA ERX SY CPT-4: G8553 07/11/2014 FLUZONE, 5ML (Medicare) CPT-4: Q2038 12/21/2013 ADMIN INFLUENZA VIRUS VAC CPT-4: G0008 12/21/2013 PRESCRIP TRANSMIT VIA ERX SY CPT-4: G8553 10/17/2013 PRESCRIP TRANSMIT VIA ERX SY CPT-4: G8553 09/24/2013 PRESCRIP TRANSMIT VIA ERX SY CPT-4: G8553 05/31/2013 ROUTINE VENIPUNCTURE CPT-4: 69759 03/28/2013 ASSAY OF FREE THYROXINE CPT-4: 19039 03/28/2013 ASSAY THYROID STIM HORMONE CPT-4: 00366 03/28/2013 COMPREHEN METABOLIC PANEL CPT-4: 70921 03/28/2013 COMPLETE CBC W/AUTO DIFF WBC CPT-4: 29718 03/28/2013 LIPID PANEL CPT-4: 19731 03/28/2013 A1C HPLC CPT-4: 66990 03/28/2013 VITAMIN B 12 FOLIC ACID CPT-4: 96334|51525 03/28/2013 PRESCRIP TRANSMIT VIA ERX SY CPT-4: G8553 03/26/2013 PRESCRIP TRANSMIT VIA ERX SY CPT-4: G8553 12/19/2012 FLUZONE, 5ML (Medicare) CPT-4: Q2038 11/27/2012 ADMIN INFLUENZA VIRUS VAC CPT-4: G0008 11/27/2012 PRESCRIP TRANSMIT VIA ERX SY CPT-4: G8553 10/04/2012 PRESCRIP TRANSMIT VIA ERX SY CPT-4: G8553 07/14/2012 ROUTINE VENIPUNCTURE CPT-4: 41325 02/23/2012 ASSAY OF FREE THYROXINE CPT-4: 94118 02/23/2012 ASSAY THYROID STIM HORMONE CPT-4: 88113 02/23/2012 COMPREHEN METABOLIC PANEL CPT-4: 99928 02/23/2012 COMPLETE CBC W/AUTO DIFF WBC CPT-4: 01755 02/23/2012 LIPID PANEL CPT-4: 97552 02/23/2012 A1C GLYCOSYLATED HEMOGLOBIN TEST CPT-4: 12889 012 CERUM REMOVAL CPT-4: 98873 02/22/2012 PRESCRIP TRANSMIT VIA ERX SY CPT-4: G8553 02/22/2012 PRESCRIP TRANSMIT VIA ERX SY CPT-4: G8553 12/15/2011 FLUZONE, 5ML (Medicare) CPT-4: Q2038 12/02/2011 ADMIN INFLUENZA VIRUS VAC CPT-4: G0008 12/02/2011 ASSAY, GLUCOSE, BLOOD QUANT CPT-4: 39842 09/21/2011 URINALYSIS NONAUTO W/O SCOPE CPT-4: 44856 09/16/2011 URINE CULTURE/ COLONY COUNT CPT-4: 79118 09/16/2011 ROUTINE VENIPUNCTURE CPT-4: 82913 09/15/2011 ASSAY OF FREE THYROXINE CPT-4: 49208 09/15/2011 ASSAY THYROID STIM HORMONE CPT-4: 20442 09/15/2011 COMPREHEN METABOLIC PANEL CPT-4: 50261 09/15/2011 COMPLETE CBC W/AUTO DIFF WBC CPT-4: 61840 09/15/2011 LIPID PANEL CPT-4: 65776 09/15/2011 ASSAY OF INSULIN CPT-4: 80407 09/15/2011 A1C GLYCOSYLATED HEMOGLOBIN TEST CPT-4: 53702 012 DRAIN/INJECT JOINT/BURSA CPT-4: 36699 08/16/2011 METHYLPREDNISOLONE 40 MG INJ CPT-4: J1030 08/16/2011 TRIAMCINOLONE ACET INJ NOS CPT-4: J3301 08/16/2011 PRESCRIP TRANSMIT VIA ERX SY CPT-4: G8553 08/03/2011 PRESCRIP TRANSMIT VIA ERX SY CPT-4: G8553 07/26/2011 METHYLPREDNISOLONE 40 MG INJ CPT-4: J1030 06/28/2011 DRAIN/INJECT JOINT/BURSA CPT-4: 44179 06/28/2011 TRIAMCINOLONE ACET INJ NOS CPT-4: J3301 06/28/2011 PRESCRIP TRANSMIT VIA ERX SY CPT-4: G8553 06/28/2011 ROUTINE VENIPUNCTURE CPT-4: 40746 04/01/2011 ASSAY OF FREE THYROXINE CPT-4: 89634 04/01/2011 ASSAY THYROID STIM HORMONE CPT-4: 46179 04/01/2011 COMPREHEN METABOLIC PANEL CPT-4: 28676 04/01/2011 COMPLETE CBC W/AUTO DIFF WBC CPT-4: 37959 04/01/2011 LIPID PANEL CPT-4: 79620 04/01/2011 PRESCRIP TRANSMIT VIA ERX SY CPT-4: G8553 03/31/2011 CERUM REMOVAL CPT-4: 99881 02/11/2011 PRESCRIP TRANSMIT VIA ERX SY CPT-4: G8553 02/11/2011 FLUZONE, 5ML (Medicare) CPT-4: Q2038 12/09/2010 ADMIN INFLUENZA VIRUS VAC CPT-4: G0008 12/09/2010 PRESCRIP TRANSMIT VIA ERX SY CPT-4: G8553 10/15/2010 URINALYSIS NONAUTO W/O SCOPE CPT-4: 89121 09/29/2010 URINE CULTURE/ COLONY COUNT CPT-4: 35176 09/29/2010 CUR TOBACCO NON-USER CPT-4: G8457 09/29/2010 ROUTINE VENIPUNCTURE CPT-4: 36332 07/06/2010 COMPLETE CBC W/AUTO DIFF WBC CPT-4: 06426 07/06/2010 COMPREHEN METABOLIC PANEL CPT-4: 17712 07/06/2010 LIPID PANEL CPT-4: 08164 07/06/2010 ASSAY THYROID STIM HORMONE CPT-4: 15845 07/06/2010 ASSAY OF FREE THYROXINE CPT-4: 24761 07/06/2010 PRESCRIP TRANSMIT VIA ERX SY CPT-4: G8553 07/02/2010 INJ TRIGGER POINT 1/2 MUSCL CPT-4: 65913 04/06/2010 TRIAMCINOLONE ACET INJ NOS CPT-4: J3301 04/06/2010 METHYLPREDNISOLONE 40 MG INJ CPT-4: J1030 04/06/2010 THER/PROPH/DIAG INJ SC/IM CPT-4: 68661 04/01/2010 KETOROLAC TROMETHAMINE INJ CPT-4: J1885 04/01/2010 PRESCRIP TRANSMIT VIA ERX SY CPT-4: G8553 01/22/2010 FLU VACCINE 3 YRS & > IM UP 64 CPT-4: 06411 0 ADMIN INFLUENZA VIRUS VAC CPT-4: G0008 12/10/2009 URINALYSIS NONAUTO W/O SCOPE CPT-4: 44076 12/02/2009 URINE CULTURE/ COLONY COUNT CPT-4: 44189 12/02/2009 PRESCRIP TRANSMIT VIA ERX SY CPT-4: G8553 12/02/2009 THER/PROPH/DIAG INJ SC/IM CPT-4: 20707 09/10/2009 VITAMIN B12 INJECTION CPT-4: J3420 09/10/2009 THER/PROPH/DIAG INJ SC/IM CPT-4: 35045 08/11/2009 VITAMIN B12 INJECTION CPT-4: J3420 08/11/2009 ROUTINE VENIPUNCTURE CPT-4: 67560 06/10/2009 Vital Signs Date Vital 03/13/2019 Blood Pressure 1: 144/82 Code: 8480-6 [...] 1: 142/60 Code: 8480-6 BMI: 38.2 Code: 67746-9 Heart Rate 1: 48 bpm Height: 5'2" Respiratory Rate: 20 bpm SpO2: 98% Tempera ture: 36.7 (C) / 98.1 (F) Weight: 212 lbs 01/10/2018 Blood Pressure 1: 142/64 Code: 8480-6 BMI: 38.5 Code: 73656-6 Heart Rate 1: 52 bpm Height: 5'2" Respiratory Rate: 22 bpm SpO2: 96% Tempera ture: 36.1 (C) / 96.9 (F) Weight: 214 lbs 12/06/2017 Blood Pressure 1: 124/80 Code: 8480-6 BMI: 38.3 Code: 85343-8 Heart Rate 1: 68 bpm Height: 5'2" Respiratory Rate: 20 bpm Temperature: 36 .3 (C) / 97.4 (F) Weight: 213 lbs 11/22/2017 Blood Pressure 1: 132/78 Code: 8480-6 BMI: 37.6 Code: 28422-0 Heart Rate 1: 68 bpm Height: 5'2" Respiratory Rate: 20 bpm SpO2: 97% Tempera ture: 36.8 (C) / 98.2 (F) Weight: 209 lbs 10/20/2017 Blood Pressure 1: 150/76 Code: 8480-6 BMI: 38.5 Code: 39833-5 Heart Rate 1: 64 bpm Height: 5'2" Respiratory Rate: 20 bpm SpO2: 97% Tempera ture: 36.2 (C) / 97.2 (F) Weight: 214 lbs 09/27/2017 Blood Pressure 1: 122/74 Code: 8480-6 BMI: 38.2 Code: 32353-4 Heart Rate 1: 64 bpm Height: 5'2" Respiratory Rate: 18 bpm SpO2: 96% Tempera ture: 35.8 (C) / 96.4 (F) Weight: 212 lbs 08/16/2017 Blood Pressure 1: 124/78 Code: 8480-6 BMI: 37.8 Code: 15862-9 Heart Rate 1: 76 bpm Height: 5'2" Respiratory Rate: 20 bpm Temperature: 36 .8 (C) / 98.3 (F) Weight: 210 lbs 07/07/2017 Blood Pressure 1: 136/70 Code: 8480-6 BMI: 38.0 Code: 57453-9 Heart Rate 1: 68 bpm Height: 5'2" Respiratory Rate: 20 bpm SpO2: 97% Tempera ture: 36.8 (C) / 98.2 (F) Weight: 211 lbs 05/30/2017 Blood Pressure 1: 140/65 Code: 8480-6 Heart Rate 1: 75 bpm Respiratory Rate: 24 bpm SpO2: 95% Temperature: 37.0 (C) / 98.6 (F) We ight: 211 lbs 04/18/2017 Blood Pressure 1: 154/70 Code: 8480-6 BMI: 37.6 Code: 72189-7 Heart Rate 1: 76 bpm Height: 5'2" Respiratory Rate: 20 bpm SpO2: 98% Tempera ture: 36.9 (C) / 98.5 (F) Weight: 209 lbs 10/25/2016 Blood Pressure 1: 156/70 Code: 8480-6 BMI: 37.1 Code: 04785-9 Heart Rate 1: 72 bpm Height: 5'2" Respiratory Rate: 20 bpm SpO2: 97% Tempera ture: 37.0 (C) / 98.6 (F) Weight: 206 lbs 09/20/2016 Blood Pressure 1: 152/78 Code: 8480-6 BMI: 36.8 Code: 42276-1 Heart Rate 1: 78 bpm Height: 5'2" Respiratory Rate: 20 bpm SpO2: 98% Tempera ture: 36.1 (C) / 97.0 (F) Weight: 204 lbs 05/12/2016 Blood Pressure 1: 142/70 Code: 8480-6 BMI: 36.9 Code: 05920-8 Heart Rate 1: 64 bpm Height: 5'2" [...] 1: 122/64 Code: 8480-6 BMI: 39.1 Code: 54383-4 Heart Rate 1: 76 bpm Height: 5'2" Respiratory Rate: 20 bpm Temperature: 36 .8 (C) / 98.2 (F) Weight: 217 lbs 05/21/2015 Blood Pressure 1: 144/70 Code: 8480-6 BMI: 39.4 Code: 63232-8 Heart Rate 1: 76 bpm Height: 5'2" Respiratory Rate: 20 bpm Temperature: 36 .6 (C) / 97.9 (F) Weight: 219 lbs 02/19/2015 Blood Pressure 1: 152/60 Code: 8480-6 BMI: 39.6 Code: 73841-2 Heart Rate 1: 84 bpm Height: 5'2" Respiratory Rate: 20 bpm Temperature: 37 .0 (C) / 98.6 (F) Weight: 220 lbs 11/13/2014 Blood Pressure 1: 146/76 Code: 8480-6 BMI: 39.8 Code: 95115-8 Heart Rate 1: 88 bpm Height: 5'2" Respiratory Rate: 20 bpm Temperature: 37 .0 (C) / 98.6 (F) Weight: 221 lbs 09/27/2014 Blood Pressure 1: 132/70 Code: 8480-6 BMI: 39.1 Code: 96410-2 Heart Rate 1: 88 bpm Height: 5'2" Respiratory Rate: 20 bpm Temperature: 36 .4 (C) / 97.6 (F) Weight: 217 lbs 07/11/2014 Blood Pressure 1: 132/66 Code: 8480-6 BMI: 39.9 Code: 11154-6 Heart Rate 1: 72 bpm Height: 5'2" Respiratory Rate: 20 bpm Temperature: 36 .9 (C) / 98.4 (F) Weight: 218 lbs 05/23/2014 Blood Pressure 1: 136/80 Code: 8480-6 Heart Rate 1: 76 bpm Respiratory Rate: 20 bpm Temperature: 36.7 (C) / 98.0 (F) Weight: 224 lbs 03/20/2014 Blood Pressure 1: 134/78 Code: 8480-6 BMI: 39.7 Code: 67103-4 Heart Rate 1: 84 bpm Height: 5'2" Respiratory Rate: 20 bpm Temperature: 36 .7 (C) / 98.0 (F) Weight: 217 lbs 10/17/2013 Blood Pressure 1: 146/78 Code: 8480-6 BMI: 39.5 Code: 14167-2 Heart Rate 1: 82 bpm Height: 5'2" Respiratory Rate: 18 bpm Temperature: 35 .6 (C) / 96.1 (F) Weight: 216 lbs 09/24/2013 Blood Pressure 1: 134/70 Code: 8480-6 BMI: 37.9 Code: 88607-9 Heart Rate 1: 80 bpm Height: 5'3" Respiratory Rate: 20 bpm Temperature: 36 .8 (C) / 98.2 (F) Weight: 214 lbs 05/31/2013 Blood Pressure 1: 132/70 Code: 8480-6 BMI: 37.6 Code: 93892-7 Heart Rate 1: 80 bpm Height: 5'3" Respiratory Rate: 20 bpm Temperature: 36 .8 (C) / 98.3 (F) Weight: 212 lbs 03/26/2013 Blood Pressure 1: 116/74 Code: 8480-6 Heart Rate 1: 68 bpm Respiratory Rate: 20 bpm Temperature: 36.2 (C) / 97.1 (F) Weight: 212 lbs 12/19/2012 Blood Pressure 1: 132/82 Code: 8480-6 BMI: 37.4 Code: 84812-8 Heart Rate 1: 76 bpm Height: 5'3" Respiratory Rate: 20 bpm Temperature: 36 .7 (C) / 98.0 (F) Weight: 211 lbs 12/04/2012 Blood Pressure 1: 130/76 Code: 8480-6 He art Rate 1: 78 bpm 11/27/2012 Blood Pressure 1: 140/82 Code: 8480-6 BMI: 36.8 Code: 82440-2 Heart Rate 1: 66 bpm Height: 5'3" Respiratory Rate: 20 bpm Temperature: 36 .1 (C) / 96.9 (F) Weight: 208 lbs 10/04/2012 Blood Pressure 1: 138/80 Code: 8480-6 BMI: 36.4 Code: 96741-7 Heart Rate 1: 72 bpm Height: 5'4" Respiratory Rate: 20 bpm Temperature: 36 .7 (C) / 98.0 (F) Weight: 212 lbs 07/27/2012 Blood Pressure 1: 124/70 Code: 8480-6 BMI: 36.9 Code: 13845-0 Heart Rate 1: 60 bpm Height: 5'4" Temperature: 36.1 (C) / 97.0 (F) Weight: 215 lbs 07/14/2012 Blood Pressure 1: 132/86 Code: 8480-6 BMI: 36.9 Code: 45528-5 Heart Rate 1: 76 bpm Height: 5'4" Respiratory Rate: 20 bpm Temperature: 36 .8 (C) / 98.2 (F) Weight: 215 lbs 06/08/2012 Blood Pressure 1: 134/82 Code: 8480-6 BMI: 36.6 Code: 20475-6 Heart Rate 1: 72 bpm Height: 5'4" Respiratory Rate: 20 bpm Temperature: 36 .3 (C) / 97.4 (F) Weight: 213 lbs 02/22/2012 Blood Pressure 1: 142/80 Code: 8480-6 BMI: 37.1 Code: 06350-5 Heart Rate 1: 76 bpm Height: 5'4" Respiratory Rate: 20 bpm Temperature: 36 .8 (C) / 98.3 (F) Weight: 216 lbs 12/28/2011 Blood Pressure 1: 128/68 Code: 8480-6 BMI: 37.6 Code: 79643-3 Heart Rate 1: 72 bpm Height: 5'4" [...] 1: 128/78 Code: 8480-6 BMI: 38.1 Code: 63318-7 Heart Rate 1: 84 bpm Height: 5'4" Respiratory Rate: 20 bpm Temperature: 36 .9 (C) / 98.4 (F) Weight: 222 lbs 08/16/2011 Blood Pressure 1: 138/80 Code: 8480-6 BMI: 37.9 Code: 27726-6 Heart Rate 1: 74 bpm Height: 5'4" Temperature: 36.1 (C) / 97.0 (F) Weight: 221 lbs 08/03/2011 Blood Pressure 1: 126/78 Code: 8480-6 BMI: 38.4 Code: 93055-0 Heart Rate 1: 72 bpm Height: 5'4" Respiratory Rate: 20 bpm Temperature: 36 .7 (C) / 98.0 (F) Weight: 224 lbs 07/26/2011 Blood Pressure 1: 138/72 Code: 8480-6 BMI: 38.4 Code: 95451-7 Heart Rate 1: 72 bpm Height: 5'4" Respiratory Rate: 20 bpm Temperature: 36 .6 (C) / 97.9 (F) Weight: 224 lbs 06/28/2011 Blood Pressure 1: 122/78 Code: 8480-6 BMI: 38.8 Code: 02030-5 Heart Rate 1: 88 bpm Height: 5'4" Respiratory Rate: 20 bpm Temperature: 36 .6 (C) / 97.8 (F) Weight: 226 lbs 03/31/2011 Blood Pressure 1: 116/60 Code: 8480-6 BMI: 38.1 Code: 82016-0 Heart Rate 1: 92 bpm Height: 5'4" Respiratory Rate: 20 bpm Temperature: 36 .8 (C) / 98.2 (F) Weight: 222 lbs 02/11/2011 Blood Pressure 1: 118/62 Code: 8480-6 BMI: 37.9 Code: 80859-9 Heart Rate 1: 80 bpm Height: 5'4" Temperature: 36.5 (C) / 97.7 (F) Weight: 221 lbs 10/15/2010 Blood Pressure 1: 132/70 Code: 8480-6 Heart Rate 1: 84 bpm Respiratory Rate: 20 bpm Temperature: 36.7 (C) / 98.0 (F) Weight: 221 lbs 09/29/2010 Blood Pressure 1: 114/72 Code: 8480-6 BMI: 37.6 Code: 37135-4 Heart Rate 1: 76 bpm Height: 5'4" [...] 1: 120/70 Code: 8480-6 BMI: 38.3 Code: 31665-8 Heart Rate 1: 88 bpm Height: 5'5" Temperature: 36.4 (C) / 97.6 (F) Weight: 230 lbs Functional Status No Functional Status data Reason For Visit Reason For Visit Effective Dates Notes blood pressure check 03/13/2019 high blood pressure [...] but had more that day. While at [employer] began to feel very ill and became [...] 09/27/2014 pain, limb 07/11/2014 follow up 05/23/2014 [facility] fwup high blood pressure 03/20/2014 injection(s) [...] 06/09/2009 Encounters Encounter Performer Location Codes Date ([id number]) OFFICE/OUTPATIENT VISIT EST Diagnosis: Essential hypertension[ICD10: I10] Diagnosis: Palpitations[ICD10: R00.2] Diagnosis: Stress reaction[ICD10: F43.0] Vikki GUAMAN DO [facility] CPT-4: 34674 03/13/2019 ([id number]) NURSE/OUTPATIENT VISIT EST Diagnosis: Mixed hyperlipidemia[ICD10: E78.2] Vikki GUAMAN DO [facility] CPT-4: 86225 01/23/2019 ([id number]) NURSE/OUTPATIENT VISIT EST Diagnosis: FLU VACCINE[ICD10: Z23] Vikki BALL DO [facility] CPT-4: 53951 12/26/2018 ([id number]) NURSE/OUTPATIENT VISIT EST Diagnosis: Chronic kidney disease, stage 1[ICD10: N18.1] Vikki GUAMAN DO [facility] CPT-4: 64074 12/15/2018 ([id number]) OFFICE/OUTPATIENT VISIT EST Diagnosis: Acute serous otitis media, left ear[ICD10: H65.02] Jennifer GUAMAN DO [facility] CPT-4: 22478 11/07/2018 ([id number]) OFFICE/OUTPATIENT VISIT EST Diagnosis: Essential (primary) hypertension[ICD10: I10] Diagnosis: 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] Diagnosis: Hypoglycemia, unspecified[ICD10: E16.2] Diagnosis: Other fatigue[ICD10: R53.83] Diagnosis: Urinary tract infection, site not specified[ICD10: N39.0] Vikki GUAMAN DO [facility] CPT-4: 45702 08/14/2018 ([id number]) OFFICE/OUTPATIENT VISIT EST Diagnosis: Essential (primary) hypertension[ICD10: I10] Diagnosis: Gastro-esophageal reflux disease without esophagitis[ICD10: K21.9] Diagnosis: Urinary tract infection, site not specified[ICD10: N39.0] Vikki GUAMAN DO [facility] CPT-4: 17127 05/10/2018 ([id number]) OFFICE/OUTPATIENT VISIT EST Diagnosis: Gastro-esophageal reflux disease without esophagitis[ICD10: K21.9] Diagnosis: Epigastric pain[ICD10: R10.13] Vikki GUAMAN [facility] CPT-4: 58546 02/14/2018 ([id number]) OFFICE/OUTPATIENT VISIT EST 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] Diagnosis: Essential (primary) hypertension[ICD10: I10] Diagnosis: Generalized anxiety disorder[ICD10: F41.1] Diagnosis: Gastro-esophageal reflux disease without esophagitis[ICD10: K21.9] Vkiki GUAMAN [facility] CPT-4: 90092 01/10/2018 OFFICE/OUTPATIENT VISIT EST Diagnosis: Gastro-esophageal reflux disease without esophagitis[ICD10: K21.9] Diagnosis: Palpitations[ICD10: R00.2] Diagnosis: Urinary tract infection, site not specified[ICD10: N39.0] Diagnosis: Generalized anxiety disorder[ICD10: F41.1] Vikki GUAMAN [facility] CPT-4: 34032 12/06/2017 ([id number]) NURSE/OUTPATIENT VISIT EST Diagnosis: 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] Diagnosis: Hypoglycemia, unspecified[ICD10: E16.2] Diagnosis: Dizziness and giddiness[ICD10: R42] Diagnosis: Occlusion and stenosis of bilateral carotid arteries[ICD10: I65.23] Vikki GUAMAN [facility] CPT-4: 36926 11/30/2017 OFFICE/OUTPATIENT VISIT EST Diagnosis: Epigastric pain[ICD10: R10.13] Diagnosis: Generalized anxiety disorder[ICD10: F41.1] Diagnosis: FLU VACCINE[ICD10: Z23] Vikki BALL [facility] [place] CPT-4: 16688 11/22/2017 ([id number]) OFFICE/OUTPATIENT VISIT EST Diagnosis: Essential (primary) hypertension[ICD10: I10] Diagnosis: Hypoglycemia, unspecified[ICD10: E16.2] Diagnosis: Gastro-esophageal reflux disease without esophagitis[ICD10: K21.9] Vikki GUAMAN [facility] [place] CPT-4: 02363 10/20/2017 ([id number]) OFFICE/OUTPATIENT VISIT EST Diagnosis: Dizziness and giddiness[ICD10: R42] Jennifer GUAMAN [facility] CPT-4: 72902 09/27/2017 ([id number]) OFFICE/OUTPATIENT VISIT EST Diagnosis: Cervicalgia[ICD10: M54.2] Diagnosis: Other spondylosis with radiculopathy, cervical region[ICD10: M47.22] Vikki Peckmikequinn GUAMAN [employer] [facility] CPT-4: 88478 08/16/2017 ([id number]) OFFICE/OUTPATIENT VISIT EST Diagnosis: Hypoglycemia, unspecified[ICD10: E16.2] Diagnosis: Other spondylosis with radiculopathy, cervical region[ICD10: M47.22] Diagnosis: Vertigo of central origin, 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] Diagnosis: 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] Vikki Deniz GUAMAN [employer] [facility] CPT-4: 46827 07/07/2017 ([id number]) OFFICE/OUTPATIENT VISIT EST Diagnosis: Benign paroxysmal vertigo, bilateral[ICD10: H81.13] Diagnosis: Otalgia, bilateral[ICD10: H92.03] Jennifer GUAMAN [employer] [facility] CPT-4: 39294 05/30/2017 ([id number]) OFFICE/OUTPATIENT VISIT EST Diagnosis: Low back pain[ICD10: M54.5] Diagnosis: Radiculopathy, lumbosacral region[ICD10: M54.17] Diagnosis: Left lower quadrant pain[ICD10: R10.32] Vikki Guaman CAIO KEELAWRENCE Alyssa [facility]ID [employer] [facility] CPT-4: 50160 04/18/2017 ([id number]) OFFICE/OUTPATIENT VISIT EST Diagnosis: FLU VACCINE[ICD10: Z23] Vikki Ciscobhavya VIKKI Alyssa [facility]ID [employer] [facility] CPT-4: 36560 12/10/2016 ([id number]) OFFICE/OUTPATIENT VISIT EST Diagnosis: Mixed hyperlipidemia[ICD10: E78.2] Diagnosis: Essential (primary) hypertension[ICD10: I10] 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] Diagnosis: Impaired fasting glucose[ICD10: R73.01] Diagnosis: Other fatigue[ICD10: R53.83] Vikki GUAMAN [facility] [place] CPT-4: 22207 11/01/2016 ([id number]) OFFICE/OUTPATIENT VISIT EST Diagnosis: Pain in thoracic spine[ICD10: M54.6] Diagnosis: Other intervertebral disc degeneration, 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] Vikki GUAMAN [facility] [place] CPT-4: 78113 10/25/2016 ([id number]) OFFICE/OUTPATIENT VISIT EST Diagnosis: Left lower quadrant pain[ICD10: R10.32] Diagnosis: Low back pain[ICD10: M54.5] Vikki RUBI [facility] [place] CPT-4: 26735 09/20/2016 ([id number]) OFFICE/OUTPATIENT VISIT EST Diagnosis: Mixed hyperlipidemia[ICD10: E78.2] Diagnosis: Essential (primary) hypertension[ICD10: I10] Diagnosis: Hypoglycemia, unspecified[ICD10: E16.2] [facility] 43482 05/13/2016 ([id number]) OFFICE/OUTPATIENT VISIT EST Diagnosis: Impaired fasting glucose[ICD10: R73.01] Diagnosis: Mastodynia[ICD10: N64.4] Diagnosis: Mixed hyperlipidemia[ICD10: E78.2] Diagnosis: Essential (primary) hypertension[ICD10: I10] Diagnosis: Other fatigue[ICD10: R53.83] Vikki GUAMAN [facility] [place] CPT-4: 16807 05/12/2016 ([id number]) OFFICE/OUTPATIENT VISIT EST Diagnosis: Acute upper respiratory infection, unspecified[ICD10: J06.9] Yue Moya VIKKI GUAMAN [facility] [place] CPT-4: 25809 03/18/2016 ([id number]) OFFICE/OUTPATIENT VISIT EST Diagnosis: Acute mastoiditis without complications, right ear[ICD10: H70.001] [facility]: 68708 02/06/2016 ([id number]) OFFICE/OUTPATIENT VISIT EST Diagnosis: FLU VACCINE[ICD10: Z23] Vikki BALL [facility] [place] CPT-4: 54418 12/12/2015 ([id number]) OFFICE/OUTPATIENT VISIT EST Diagnosis: Mixed hyperlipidemia[ICD10: E78.2] Diagnosis: Essential (primary) hypertension[ICD10: I10] 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] Diagnosis: Impaired fasting glucose[ICD10: R73.01] Vikki GUAMAN DO [facility] CPT-4: 66538 11/25/2015 ([id number]) OFFICE/OUTPATIENT VISIT EST Diagnosis: Constipation, unspecified[ICD10: K59.00] Vikki GUAMAN DO [facility] CPT-4: 79575 08/26/2015 ([id number]) OFFICE/OUTPATIENT VISIT EST Diagnosis: Essential (primary) hypertension[ICD10: I10] Diagnosis: Mixed hyperlipidemia[ICD10: E78.2] Diagnosis: Chronic kidney disease, stage 1[ICD10: N18.1] Vikki GUAMAN [facility] CPT-4: 27752 05/21/2015 ([id number]) OFFICE/OUTPATIENT VISIT EST Diagnosis: Muscle weakness (generalized)[ICD10: M62.81] Diagnosis: Dizziness and giddiness[ICD10: R42] Diagnosis: Essential (primary) hypertension[ICD10: I10] Diagnosis: History of falling[ICD10: Z91.81] Vikki Peckbhavya ROMMEL GUAMAN [facility] CPT-4: 34751 02/19/2015 ([id number]) OFFICE/OUTPATIENT VISIT EST Diagnosis: FLU VACCINE[ICD10: Z23] Vikki BALL [facility] CPT-4: 37813 12/20/2014 ([id number]) OFFICE/OUTPATIENT VISIT EST Diagnosis: Acute renal failure[ICD9: 584.9] Diagnosis: POLYURIA[ICD9: 788.42] Vikki Peckmikequinn CORTEZVIKKI Alyssa Rees [facility] CPT-4: 64993 11/19/2014 ([id number]) OFFICE/OUTPATIENT VISIT EST Diagnosis: HYPERLIPIDEMIA NEC/NOS[ICD9: 272.4] Diagnosis: HYPERTENSION[ICD9: 401.9] Diagnosis: CAD[ICD9: 414.00] Diagnosis: Hyperglycemia[ICD9: 790.29] Diagnosis: MALAISE AND FATIGUE[ICD9: 780.79] Vikki Peckbhavya ROMMEL GUAMAN [employer] [facility] CPT-4: 16267 11/14/2014 ([id number]) OFFICE/OUTPATIENT VISIT EST Diagnosis: MALAISE AND FATIGUE[ICD9: 780.79] Diagnosis: HYPOGLYCEMIA[ICD9: 251.2] Diagnosis: Grieving[ICD9: 309.0] Diagnosis: ABDOMINAL PAIN[ICD9: 789.00] Vikki CORTEZLINE AlejandraSujata DENIZ [facility] CPT-4: 54930 11/13/2014 OFFICE/OUTPATIENT VISIT EST Diagnosis: CERUMEN IMPACTION[ICD9: 380.4] Diagnosis: EUSTACHIAN TUBE DYSFUNCTION[ICD9: 381.81] Jessenia Penny VIKKI Alyssa GUAMAN [employer] [facility] CPT-4: 11655 09/27/2014 ([id number]) OFFICE/OUTPATIENT VISIT EST Diagnosis: Leg pain[ICD9: 729.5] Diagnosis: SUPERFIC PHLEBITIS-LEG[ICD9: 451.0] Vikki Ciscobhavya NIÑO AlejandraSujata DENIZ [employer] [facility] CPT-4: 12077 07/11/2014 ([id number]) OFFICE/OUTPATIENT VISIT EST Diagnosis: Thoracic back pain[ICD9: 724.1] Diagnosis: SPASM OF MUSCLE[ICD9: 728.85] Vikki Ciscomikequinn VIKKI AlejandraSujata DENIZ [facility] CPT-4: 21834 05/23/2014 ([id number]) OFFICE/OUTPATIENT VISIT EST Diagnosis: DIZZINESS/VERTIGO[ICD9: 780.4] Diagnosis: Benign positional vertigo[ICD9: 386.11] Diagnosis: HYPERTENSION[ICD9: 401.9] Diagnosis: Suspicious nevus[ICD9: 238.2] Vikki Ciscobhavya PIKE AlejandraSujata DENIZ [facility] CPT-4: 05387 03/20/2014 ([id number]) OFFICE/OUTPATIENT VISIT EST Diagnosis: FLU VACCINE[ICD10: Z23] Vikki PIKE AlejandraSujata [facility] CPT-4: 52244 12/21/2013 OFFICE/OUTPATIENT VISIT EST Diagnosis: SINUSITIS, ACUTE[ICD9: 461.9] Diagnosis: EUSTACHIAN TUBE DYSFUNCTION[ICD9: 381.81] [facility] C[facility]: 64489 10/17/2013 ([id number]) OFFICE/OUTPATIENT VISIT EST Diagnosis: DIZZINESS/VERTIGO[ICD9: 780.4] Diagnosis: HYPERTENSION[ICD9: 401.9] Vikki PECK [facility] CPT-4: 08347 09/24/2013 ([id number]) OFFICE/OUTPATIENT VISIT EST Diagnosis: HYPERTENSION[ICD9: 401.9] Diagnosis: MALAISE AND FATIGUE[ICD9: 780.79] Diagnosis: SINUSITIS, ACUTE[ICD9: 461.9] [facility] C[facility]: 91188 05/31/2013 ([id number]) OFFICE/OUTPATIENT VISIT EST Diagnosis: HYPERLIPIDEMIA NEC/NOS[ICD9: 272.4] Diagnosis: HYPERTENSION[ICD9: 401.9] Diagnosis: B12 DEFIC ANEMIA NEC[ICD9: 281.1] Diagnosis: HYPOGLYCEMIA[ICD9: 251.2] Vikki PECK [facility] CPT-4: 01573 03/28/2013 OFFICE/OUTPATIENT VISIT EST Diagnosis: COUGH[ICD9: 786.2] [facility] CPT-[facility]: 23959 03/26/2013 OFFICE/OUTPATIENT VISIT EST Diagnosis: COUGH[ICD9: 786.2] Diagnosis: URI, ACUTE[ICD9: 465.9] Jessenia CID [facility] CPT-4: 04351 12/19/2012 ([id number]) OFFICE/OUTPATIENT VISIT EST Diagnosis: HYPERTENSION[ICD9: 401.9] Diagnosis: CEPHALGIA[ICD9: 784.0] Diagnosis: ANXIETY STATE NOS[ICD9: 300.00] Diagnosis: FLU VACCINE[ICD9: V04.81] Vikki PECK [facility] CPT-4: 98498 11/27/2012 ([id number]) OFFICE/OUTPATIENT VISIT EST Diagnosis: DIZZINESS/VERTIGO[ICD9: 780.4] Diagnosis: SINUSITIS, ACUTE[ICD9: 461.9] Diagnosis: Benign positional vertigo[ICD9: 386.11] Vikki CRISOSTOMO AlejandraSujata DENIZ [facility] CPT-4: 97772 10/04/2012 OFFICE/OUTPATIENT VISIT EST Diagnosis: OTITIS MEDIA NOS[ICD9: 382.9] Vikki PIKE AlejandraSujata DENIZ [facility] CPT-4: 75071 07/27/2012 OFFICE/OUTPATIENT VISIT EST Diagnosis: Perforation of ear drum[ICD9: 384.20] Diagnosis: SINUSITIS, ACUTE[ICD9: 461.9] Vikki PIKE AlejandraSujata CISCOMIKEQUINN [facility] CPT-4: 93411 07/14/2012 ([id number]) OFFICE/OUTPATIENT VISIT EST Diagnosis: Mastalgia[ICD9: 611.71] Vikki PIKE AlejandraSujata [facility] CPT-[facility]: 80231 06/08/2012 ([id number]) OFFICE/OUTPATIENT VISIT EST Diagnosis: HYPERLIPIDEMIA NEC/NOS[ICD9: 272.4] Diagnosis: HYPERTENSION[ICD9: 401.9] Diagnosis: DIZZINESS/VERTIGO[ICD9: 780.4] Diagnosis: Hyperglycemia[ICD9: 790.29] Diagnosis: MALAISE AND FATIGUE[ICD9: 780.79] Vikki Conde AlejandraSujata [facility] CPT-4: 39939 02/23/2012 ([id number]) OFFICE/OUTPATIENT VISIT EST Diagnosis: EUSTACHIAN TUBE DYSFUNCTION[ICD9: 381.81] Diagnosis: DIZZINESS/VERTIGO[ICD9: 780.4] Diagnosis: ABDOMINAL PAIN[ICD9: 789.00] Diagnosis: GERD[ICD9: 530.81] Diagnosis: CERUMEN IMPACTION[ICD9: 380.4] Vikki PIKE Alejandra Sujata [facility] CPT-4: 82242 02/22/2012 OFFICE/OUTPATIENT VISIT EST Diagnosis: ABDOMINAL PAIN[ICD9: 789.00] Diagnosis: DYSPEPSIA[ICD9: 536.8] Vikki RUTLEDGE [facility] CPT-4: 65896 12/28/2011 ([id number]) OFFICE/OUTPATIENT VISIT EST Diagnosis: ABDOMINAL PAIN[ICD9: 789.00] Diagnosis: DYSPEPSIA[ICD9: 536.8] Diagnosis: IBS[ICD9: 564.1] Vikki GUAMAN [facility] CPT - 4: 25770 12/15/2011 OFFICE/OUTPATIENT VISIT EST Diagnosis: DIZZINESS/VERTIGO[ICD9: 780.4] Diagnosis: HYPOGLYCEMIA[ICD9: 251.2] Vikki MARTINEZ [facility] CPT-4: 82283 09/21/2011 ([id number]) OFFICE/OUTPATIENT VISIT EST Diagnosis: URINARY TRACT INFECTION[ICD9: 599.0] [facility] CPT[facility]: 99882 09/16/2011 ([id number]) OFFICE/OUTPATIENT VISIT EST Diagnosis: HYPERLIPIDEMIA NEC/NOS[ICD9: 272.4] Diagnosis: HYPERTENSION[ICD9: 401.9] Diagnosis: MALAISE AND FATIGUE[ICD9: 780.79] Diagnosis: DIZZINESS/VERTIGO[ICD9: 780.4] Vikki GUAMAN [facility] CPT-4: 61961 09/15/2011 ([id number]) OFFICE/OUTPATIENT VISIT EST Diagnosis: DIZZINESS/VERTIGO[ICD9: 780.4] Diagnosis: MALAISE AND FATIGUE[ICD9: 780.79] Diagnosis: HYPERTENSION[ICD9: 401.9] Vikki MARTINEZ [facility] CPT-4: 39228 09/13/2011 OFFICE/OUTPATIENT VISIT EST Diagnosis: LUMB/LUMBOSAC DISC DEGEN[ICD9: 722.52] Diagnosis: Radiculopathy of leg[ICD9: 724.4] Diagnosis: 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] Diagnosis: SPINAL ENTHESOPATHY[ICD9: 720.1] Vikki GUAMAN [facility] CPT-4: 14113 08/16/2011 ([id number]) OFFICE/OUTPATIENT VISIT EST Diagnosis: PAIN, LOWER BACK[ICD9: 724.2] Diagnosis: SPASM OF MUSCLE[ICD9: 728.85] Diagnosis: SCIATICA[ICD9: 724.3] Diagnosis: Lumbar degenerative disc disease[ICD9: 722.52] Vikki GUAMAN [facility] CPT-4: 15642 08/03/2011 ([id number]) OFFICE/OUTPATIENT VISIT EST Diagnosis: PAIN IN THORACIC SPINE[ICD9: 724.1] Diagnosis: SPASM OF MUSCLE[ICD9: 728.85] Vikki GUAMAN [facility] CPT-4: 51257 07/26/2011 ([id number]) OFFICE/OUTPATIENT VISIT EST Diagnosis: PAIN, LOWER BACK[ICD9: 724.2] Diagnosis: SPASM OF MUSCLE[ICD9: 728.85] Diagnosis: Sacroiliac dysfunction[ICD9: 739.4] Diagnosis: Lumbar degenerative disc disease[ICD9: 722.52] Vikki RobertsSujata DENIZ [facility] CPT-4: 16716 06/28/2011 OFFICE/OUTPATIENT VISIT EST Diagnosis: MALAISE AND FATIGUE[ICD9: 780.79] Diagnosis: HYPOTENSION[ICD9: 458.9] Diagnosis: CAD[ICD9: 414.00] Vikki GUAMAN [facility] CPT-4: 43468 03/31/2011 OFFICE/OUTPATIENT VISIT EST Diagnosis: SINUSITIS, ACUTE[ICD9: 461.9] Diagnosis: PHARYNGITIS, ACUTE[ICD9: 462] Diagnosis: CERUMEN IMPACTION[ICD9: 380.4] Vikki GUAMAN [facility] CPT-4: 52801 02/11/2011 OFFICE/OUTPATIENT VISIT EST Diagnosis: PAIN IN THORACIC SPINE[ICD9: 724.1] Diagnosis: GERD[ICD9: 530.81] Diagnosis: DIZZINESS/VERTIGO[ICD9: 780.4] Vikki Roberts Sujata DENIZ [facility] CPT-4: 52744 10/15/2010 OFFICE/OUTPATIENT VISIT EST Vikki Ciscomikequinn VIKKI AlejandraSujata CISCO MARTINEZ [facility] CPT- 4: 00076 09/29/2010 ([id number]) OFFICE/OUTPATIENT VISIT EST Vikki [employer] CPT-4: 08140 07/02/2010 ([id number]) OFFICE/OUTPATIENT VISIT, EST Diagnosis: PAIN, LOWER BACK[ICD9: 724.2] Vikki [employer] CPT-4: 95877 04/06/2010 ([id number]) OFFICE/OUTPATIENT VISIT, EST [facility]ki [facility] CPT-4: 33703 04/01/2010 ([id number]) OFFICE/OUTPATIENT VISIT, EST Vikki [facility] CPT-4: 84264 01/22/2010 ([id number]) OFFICE/OUTPATIENT VISIT, EST Vikki [facility] CPT-4: 38943 12/02/2009 ([id number]) OFFICE/OUTPATIENT VISIT, EST [facility]ki [facility] CPT-4: 13053 10/21/2009 ([id number]) OFFICE/OUTPATIENT VISIT, EST [facility] CPT-4: 10686 09/10/2009 ([id number]) OFFICE/OUTPATIENT VISIT, EST Vikki [facility] CPT-4: 89819 08/11/2009 ([id number]) OFFICE/OUTPATIENT VISIT, EST [facility]ki [facility] [employer] CPT-4: 91670 06/09/2009 Plan of Care Planned Activity Notes Codes Status Date Visit Diagnosis Plan: Palpitations Discussion: Check C BC, CMP, TSH ICD-9 : 785.1 ICD-10 : R00.2 03/13/2019 Visit Diagnosis Plan: Essential hypertension Discussio n: Increase metoprolol to 25mg q AM and 50mg po q pM Recheck 1 week ICD-9 : 401.9 ICD-10 : I10 03/13/2019 Patient Education: metoprolol tartrate- [employer] Cou maeve [id number] [email or web address].Nuxeo/samplemd/resources/getResource/61/[email or web address] Completed 03/13/2019 Care Plan: X-RAY EXAM NECK SPINE 4/5VWS LOINC : 98627-0 Pending 03/13/2019 Care Plan: X-RAY EXAM THORAC SPINE4/>VW LOINC : 66573-0 Pending 03/13/2019 Appointment: Vikki Guaman WPtel: [address] [place] [address] US LAB 01/23/2019 Appointment: Vikki Guaman WPtel: [address] [place] [address] US INJECTION 12/26/2018 Patient Education: INFLUENZA VACCINE [facility] Completed 12/26/2018 Appointment: Vikki Guaman WPtel: [address] [place] [address] US LAB 12/15/2018 Visit Diagnosis Plan: Acute [...] : H65.02 11/07/2018 Appointment: Jennifer Rosario [address] [place] [address] ACUTE ILLNESS 11/07/2018 Visit Diagnosis Plan: Urinary [...] : R53.83 08/14/2018 Appointment: Vikki Guaman WPtel: [address] [place], [place] [phone] [place] FOLLOW UP 08/14/2018 Visit Diagnosis Plan: [...] : K21.9 05/10/2018 Appointment: Vikki Guaman WPtel: [address] [place], [place] [phone] [place] FOLLOW UP 05/10/2018 Patient Education: metoprolol tartrate- [employer] [facility] [id number] https://www.Nuxeo/[employer] Industries Holdingsmo/resources/getResource/61/[email or web address]-76pb-57 Completed 05/10/2018 Appointment: Vikki Guaman WPtel: [address] [place], [place] [id number] [place] CANCELED 04/21/2018 Visit Diagnosis Plan: Gastro-esophageal reflux disease without esophagitis Discussion: Continue protonix and carafate Proceed with updated EGD ICD-9 : 530.81 ICD-10 : K21.9 02/14/2018 Visit Diagnosis Plan: Epigastric pain Discussion: [facility] k CT abdomen/pelvis due to ongoing abdominal pain ICD-9 : 789.06 ICD-10 : R10.13 02/14/2018 Appointment: Vikki Guaman WPtel: [address] [place], [place] [id number] US FOLLOW UP 02/14/2018 Care Plan: CT PELVIS W/O DYE LOINC : 361 08-9 Pending 02/14/2018 Care Plan: CT ABDOMEN W/O DYE LOINC : 36 103-0 Pending 02/14/2018 Care Plan: Referral Order SNOMED-CT : [id number] Pending 02/14/2018 Visit Diagnosis Plan: 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 Discussion: [...] ICD-10 : I10 01/10/2018 Appointment: Vikki Guamantel: [address] [place], [place] [phone] [place] FOLLOW UP 01/10/2018 Visit Diagnosis Plan: [...] ICD-10 : R00.2 12/06/2017 Appointment: Vikki Guamanl: [address] [place], [place] [id number] US FOLLOW UP 12/06/2017 Patient Education: Patient Medication Summary Completed 12/06/2017 Appointment: Vikki Guamantel: [address] [place], [place] [phone] [place] LAB 11/30/2017 Patient Education: Patient Medication [...] : F41.1 11/22/2017 Appointment: Vikki Guaman WPtel: [address] [place], [place] [phone] FOLLOW UP 11/22/2017 Patient Education: Patient Medication [...] : K21.9 10/20/2017 Appointment: Vikki Guaman WPtel: [address] [place], [place] [phone] ACUTE ILLNESS 10/20/2017 Patient Education: Patient Medication Summary Completed 10/20/2017 Visit Diagnosis Plan: Dizziness and giddiness Discussi on: blood work to be completed in office including cmp, cbc, troponin to rule out glucose intolerance, infection, dehydration. 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 brown's office. will have front office make appt. patient has carotid doppler annually. ICD-9 : 780.4 ICD-10 : R42 09/27/2017 Appointment: Jennifer [address] Drive [id number] ACUTE ILLNESS 09/27/2017 Patient Education: Patient Medication Summary Completed 09/27/2017 Visit Diagnosis Plan: Cervicalgia Discussion: Complete course of PT since symptoms improved Continue stretching exercises Notify if symptoms return or worsen ICD-9 : 723.1 ICD-10 : M54.2 08/16/2017 Appointment: Vikki Guaman WPtel: [facility] FOLLOW UP 08/16/2017 Patient Education: Patient Medication [...] : H81.43 07/07/2017 Appointment: Vikki Guaman WPtel: [facility] 07/07/2017 Patient Education: Patient Medication Summary Completed 07/07/2017 Care Plan: MRI NECK SPINE W/O DYE LOINC : 47168-7 Pending 07/07/2017 Visit Diagnosis Plan: Otalgia, bilateral [...] : H81.13 05/30/2017 Appointment: Jennifer Rosario [address] [place] [address] ACUTE ILLNESS 05/30/2017 Patient Education: Patient Medication [...] : M54.17 04/18/2017 Appointment: Vikki Guaman WPtel: [address] [place] [address] ACUTE ILLNESS 04/18/2017 Patient Education: Patient Medication Summary Completed 04/18/2017 Appointment: Vikki Guaman WPtel: [address] [place] [address] US INJECTION 12/10/2016 Patient Education: Patient Medication Summary Completed 12/10/2016 Appointment: Vikki Guaman WPtel: [address] [place] [address] US LAB 11/01/2016 Patient Education: Patient Medication [...] : M51.36 10/25/2016 Appointment: Vikki Guaman WPtel: [address] [place] [address] FOLLOW UP 10/25/2016 Patient Education: Patient Medication [...] : R10.32 09/20/2016 Appointment: Vikki Guaman WPtel: [address] [place], [place] [phone] ACUTE ILLNESS 09/20/2016 Patient Education: Patient Medication Summary Completed 09/20/2016 Appointment: Vikki Guaman WPtel: [address] [place], [place] [phone] LAB 05/13/2016 Patient Education: Patient Medication Summary [...] : N64.4 05/12/2016 Appointment: Vikki Guaman WPtel: [address] [place], [place] [phone] US 05/11 confirmed `sl ACUTE ILLNESS 05/12/2016 Patient Education: Patient Medication Summary Completed 05/12/2016 Care Plan: MAMMOGRAM SCREENING LOINC : 2 6347-5 Pending 05/12/2016 Visit Diagnosis Plan: Acute upper respiratory infectio n, unspecified Discussion: Exam is reassuring Likely viral illness Supportive care reviewed and encouraged Follow up PRN ICD-9 : 465.9 ICD-10 : J06.9 03/18/2016 Appointment: Yue Moya [address] [place] [address] ACUTE ILLNESS 03/18/2016 Patient Education: Patient Medication Summary Completed 03/18/2016 Visit Plan: Supportive care. Rest, Fluid s, Tylenol/Motrin prn fever or bodyaches. Notify if worsening symptoms. 02/06/2016 Appointment: Vikki Guamantel: [address] [place] [address] ACUTE ILLNESS 02/06/2016 Patient Education: Patient Medication Summary Completed 02/06/2016 Appointment: Vikki Guaman WPtel: [address] [place] [address] US INJECTION 12/12/2015 Patient Education: Patient Medication Summary Completed 12/12/2015 Appointment: Vikki Guaman WPtel: [address] [place] [address] US LAB 11/25/2015 Patient Education: Patient Medication Summary Completed 11/25/2015 Visit Plan: Add miralax daily Use daily probiotic and metamucil and push fluids Notify if worsens/persists 08/26/2015 Appointment: Vikki Guaman WPtel: [address] [place] [address] 08/25/15 confirmed ~sl ACUTE ILLNESS 08/26/2015 Patient Education: Patient Medication Summary Completed 08/26/2015 Visit Plan: No NSAIDs Kidney function di scussed Discussed hydration Monitor lab every 4months so will check CMP, HbA1C next month 05/21/2015 Appointment: Vikki Guaman WPtel: [address] [place] [address] 05/19 confirmed ~sl ACUTE ILLNESS 05/21/2015 Patient Education: Patient Medication Summary Completed 05/21/2015 Visit Plan: Vestibular exercises Refill flonase Strict low Na diet--discussed that needs to read labels Rx for walker with chair given due to muscle weakness/unsteadiness Has carotids and abdominal aorta and legs checked in March Check Chem 7 02/19/2015 Appointment: Vikki Guaman WPtel: [address] [place], [place] [phone] 02/18/15 appt confirmed cn FOLLOW UP 02/19 Patient Education: Patient Medication Summary Completed 02/19/2015 Patient Education: Vertigo Completed 04/22/2014 Appointment: Vikki Guaman WPtel: [address] [place], [place] [phone] INJECTION 12/20/2014 Patient Education: Patient Medication Summary Completed 12/20/2014 Appointment: Vikki Guaman WPtel: [address] [place], [place] [phone] UA 11/19/2014 Patient Education: Patient Medication Summary Completed 11/19/2014 Referral: Edy Cheek WPtel: #1 [facility] Katerina [id number] US Referral Completed 11/18/2014 Appointment: Vikki Guaman WPtel: [address] [place], [place] [email or web address] LAB 11/14/2014 Patient Education: Patient Medication Summary Completed 11/14/2014 Visit Plan: Check CMP, CBC, TSH, Free T4 , B12, Lipids, HbA1C Discussed 6 small meals a day each with protein Would likely benefit from antidepressant Update colonoscopy 11/13/2014 Appointment: Vikki Guaman WPtel: [address] [place], [place] [phone] 11/12/14 confirmed ACUTE ILLNESS 11/13/2014 Patient Education: Patient Medication Summary Completed 11/13/2014 Visit Plan: Cerumen flush with warm wate r and peroxide - good results Resume Nasonex nasal spray daily Recommended Debrox earwax removal drops 09/27/2014 Appointment: Jessenia Francis WPtel: [address] [place] [address] ACUTE ILLNESS 09/27/2014 Patient Education: Patient Medication Summary Completed 09/27/2014 Visit Plan: Continue aspirin daily Add m eloxicam for 1week Elevate and Ice Call on Tuesday07/11/2014 Appointment: Vikki Guamantehector: [address] [place], [place] [phone] ACUTE ILLNESS 07/11/2014 Patient Education: Patient Medication Summary Completed 07/11/2014 Visit Plan: Been using baclofen at [facility] and has helped some PT for next 2-4weeks 05/23/2014 Appointment: Vikki Guaman WPtel: [address] [place] [address] Follow Up 05/23/2014 Patient Education: Patient Medication Summary Completed 05/23/2014 Appointment: Vikki Guaman WPtel: [address] [place] [address] LAB 05/10/2014 Appointment: Vikki Guaman WPtel: [address] [place], [place] [phone] [[email or web address] feeling better, weather - FOLLOW UP 04/07 Referral: Edy Cheek WPtel: [facility] [[email or web address] Referral Appointment Requested 04/03/2014 Visit Plan: Continue exercise and curren t meds See surgery for removal of right arm lesion 03/20/2014 Appointment: Vikki Guaman WPtel: [address] [place], [place] [phone] FOLLOW UP 03/20/2014 Patient Education: Patient Medication Summary Completed 03/20/2014 Appointment: Vikki Guaman WPtel: [address] [place], [place] [phone] [place] INJECTION 12/21/2013 Patient Education: Patient Medication Summary Completed 12/21/2013 Appointment: Jessenia Francis WPtel: [address] [place], [place] [phone] [[email or web address] ACUTE ILLNESS 10/17/2013 Patient Education: Patient Medication Summary Completed 10/17/2013 Visit Plan: Discussed that likely lumbar etiology for leg weakness Will change amlodopine to low dose dyazide and see if helps legs and inner ear 09/24/2013 Appointment: Vikki Guaman WPtel: [address] [place] [address] FOLLOW UP 09/24/2013 Patient Education: Patient Medication Summary Completed 09/24/2013 Visit Plan: Ceftin and continue claritin /flonase Decrease amlodopine to 2.5mg q HS until fwup with Card due to weakness 05/31/2013 Appointment: Vikki Guaman WPtel: [address] [place] [address] ACUTE ILLNESS 05/31/2013 Patient Education: Patient Medication Summary Completed 05/31/2013 Appointment: Vikki Guaman WPtel: [address] [place] [address] LAB 03/28/2013 Patient Education: Patient Medication Summary Completed 03/28/2013 Appointment: Jessenia Francis WPtel: [address] [place] [address] ACUTE ILLNESS 03/26/2013 Patient Education: Patient Medication Summary Completed 03/26/2013 Visit Plan: Supportive care. Rest, Fluid s, Tylenol prn fever or bodyaches. Notify if worsening symptoms. Ceftin 12/19/2012 Appointment: Jessenia Francis WPtel: [address] [place] [address] ACUTE ILLNESS 12/19/2012 Patient Education: Patient Medication Summary Completed 12/19/2012 Appointment: Vikki Guaman WPtel: [address] [place] [address] BP CHECK 12/04/2012 Patient Education: Patient Medication Summary Completed 12/04/2012 Appointment: Vikki Guaman WPtel: [address] [place] [address] ER Follow UP 11/27/2012 Patient Education: Patient Medication Summary Completed 11/27/2012 Visit Plan: Restart flonase BID Use mecl izine 25mg q HS Vestibular exercises Claritin 10mg q AM See ENT if doesn't resolve 10/04/2012 Appointment: Vikki Guaman WPtel: [address] [place] [address] ACUTE ILLNESS 10/04/2012 Patient Education: Patient Medication Summary Completed 10/04/2012 Visit Plan: Will continue to observe 07/27/2012 Appointment: Vikki Guaman WPtel: [address] [place] [address] FOLLOW UP 07/27/2012 Patient Education: Patient Medication [...] recheck. 07/14/2012 Appointment: Evelyn Santos WPtel: [address] [place] [address] ACUTE ILLNESS 07/14/2012 Patient Education: Patient Medication Summary Completed 07/14/2012 Visit Plan: Decrease caffeine intake Kristin ck Bilateral Mammogram with US of left breast 06/08/2012 Appointment: Vikki Guaman WPtel: [address] [place] [address] ACUTE ILLNESS 06/08/2012 Patient Education: Patient Medication Summary Completed 06/08/2012 Appointment: Alisia Campbell WPtel: [address] [place], [place] [phone] appt scheduled 04/06 ACUTE ILLNESS 04/10/2012 Appointment: Vikki Guaman WPtel: [address] [place], [place] [phone] US LAB 02/23/2012 Patient Education: Patient Medication Summary Completed 02/23/2012 Visit Plan: Continue off carafate and se e how does Continue probiotic Add Vestibular exercises and use meclizine prn Continue Nasonex Check fasting lab including CMP, Lipids, CBC, TSH, Free T4, HbA1C 02/22/2012 Appointment: Vikki Guamantel: [address] [place], [place] [phone] FOLLOW UP 02/22/2012 Patient Education: Patient Medication Summary Completed 02/22/2012 Visit Plan: Continue carafate for 4more weeks at current dose then decrease to BID for 2wks then q HS 12/28/2011 Appointment: Vikki Guaman WPtel: [address] [place], [place] [phone] FOLLOW UP 12/28/2011 Patient Education: Patient Medication Summary Completed 12/28/2011 Visit Plan: Continue omeprazole Add Judi fate 1gm po q AC Add daily probiotic 12/15/2011 Appointment: Vikki Guaman WPtel: [address] [place] [address] ACUTE ILLNESS 12/15/2011 Patient Education: Patient Medication Summary Completed 12/15/2011 Appointment: Vikki Guaman WPtel: [address] [place], [place] [id number] INJECTION 12/02/2011 Patient Education: Patient Medication Summary Completed 12/02/2011 Visit Plan: Diabetic Diet Accuchecks BID alternating times Hold onglyza and Januvia for now and continue diet and exercise and weight loss and moniter BS Discussed hypoglycemia and snack of peanut butter and crackers with juice or milk 09/21/2011 Appointment: Vikki Guamantel: [address] [place], [place] [phone] WORK IN 09/21/2011 Patient Education: Patient Medication Summary Completed 09/21/2011 Appointment: Vikki Guamantel: [address] [place], [place] [phone] [facility] 09/16/2011 Patient Education: Patient Medication Summary Completed 09/16/2011 Appointment: Vikki Guamantel: [address] [place], [place] [phone] LAB 09/15/2011 Patient Education: Patient Medication Summary Completed 09/15/2011 Appointment: Vikki Guaman WPtel: [address] [place] [address] ACUTE ILLNESS 09/13/2011 Patient Education: Patient Medication Summary Completed 09/13/2011 Visit Plan: Injection to Right SI joint as above Pt will call in 3 days on pain Has PT starting in 2wks. 08/16/2011 Appointment: Vikki Guaman WPtel: [address] [place] [address] ACUTE ILLNESS 08/16/2011 Patient Education: Patient Medication Summary Completed 08/16/2011 Visit Plan: OMT done Start PT May need u pdated MRI if need to consider epidural Prednisone 08/03/2011 Appointment: Vikki Guaman WPtel: [address] [place] [address] OMT 08/03/2011 Patient Education: Patient Medication Summary Completed 08/03/2011 Visit Plan: Flexeril and Vimovo OMT done Daily stretches 07/26/2011 Appointment: Vikki Guaman WPtel: [address] [place] [address] ACUTE ILLNESS 07/26/2011 Patient Education: Patient Medication Summary Completed 07/26/2011 Visit Plan: OMT done Daily stretches Roque st heat or biofreeze Right SI joint injection Call in 1week Vimovo BID 06/28/2011 Appointment: Vikki Guaman WPtel: [address] [place] [address] ACUTE ILLNESS 06/28/2011 Patient Education: Patient Medication Summary Completed 06/28/2011 Appointment: Vikki Guamantel: [address] [place] [address] LAB 04/01/2011 Patient Education: Patient Medication Summary Completed 04/01/2011 Visit Plan: Decrease amlodopine to 1.25m g daily Schedule with Cardiology Fasting lab in AM 03/31/2011 Appointment: Vikki Guaman WPtel: [address] [place], [place] [phone] ACUTE ILLNESS 03/31/2011 Patient Education: Patient Medication Summary Completed 03/31/2011 Visit Plan: Saline nasal flushes prn. Ty lenol/Motrin prn headache. Notify if persists/symptoms worsening. Cerumen removal from ears as above 02/11/2011 Appointment: Vikki Guaman WPtel: [address] [place] [address] ACUTE ILLNESS 02/11/2011 Patient Education: Patient Medication Summary Completed 02/11/2011 Appointment: Vikki Guaman WPtel: [address] [place] [address] [place] INJECTION 12/09/2010 Patient Education: Patient Medication Summary Completed 12/09/2010 Visit Plan: Continue vimovo for 1more we ek Increase Omeprazole to BID for 1mo then resume QD if stomach improved Vestibular exercises with meclizine q HS for next week 10/15/2010 Appointment: Vikki Guaman WPtel: [address] [place] [address] FOLLOW UP 10/15/2010 Patient Education: Patient Medication Summary Completed 10/15/2010 Appointment: Vikki Guaman WPtel: [address] [place] [address] ACUTE ILLNESS 09/29/2010 Patient Education: Patient Medication Summary Completed 09/29/2010 Appointment: Vikki Guaman WPtel: [address] [place], [place] [phone] [place] LAB 07/06/2010 Patient Education: Patient Medication Summary Completed 07/06/2010 Visit Plan: Saline nasal flushes prn. Ty lenol/Motrin prn headache. Notify if persists/symptoms worsening. Add Veramyst Increase Omeprazole to 20mg po BID 07/02/2010 Appointment: Vikki Guaman WPtel: [address] [place], [place] [email or web address]] ACUTE ILLNESS 07/02/2010 Patient Education: Patient Medication Summary Completed 07/02/2010 Appointment: Vikki Guaman WPtel: [address] [place] [address] FOLLOW UP 04/06/2010 Patient Education: Patient Medication Summary Completed 04/06/2010 Appointment: Vikki Guaman WPtel: [address] [place] [address] ACUTE ILLNESS 04/01/2010 Patient Education: Patient Medication Summary Completed 04/01/2010 Visit Plan: Nasocourt sample given. Pt. will notify if symptoms are worse on Tuesday. 01/22/2010 Appointment: Alisia Campbell WPtel: [address] [place] [address] ACUTE ILLNESS 01/22/2010 Patient Education: Patient Medication Summary Completed 01/22/2010 Appointment: Vikki Guaman WPtel: [address] [place] [address] [place] INJECTION 12/10/2009 Patient Education: Patient Medication Summary Completed 12/10/2009 Appointment: Vikki Guaman WPtel: [address] [place] [address] FOLLOW UP 12/02/2009 Patient Education: Patient Medication Summary Completed 12/02/2009 Patient Education: Lexapro Completed 0 12/02/2009 Visit Plan: May proceed with hiatal ryan ia repair per Card. so will contact Dr. Mariscal's office to proceed with surgery Trial of Lexapro 5mg QD plus use xanax prn 10/21/2009 Appointment: Vikki Guaman WPtel: [address] [place] [address] FOLLOW UP 10/21/2009 Patient Education: Patient Medication Summary Completed 10/21/2009 Visit Plan: B12 given Cont oral B12 and iron Fwup 1mo for B12 Proceed with hiatal hernia repair once card clearance 09/10/2009 Appointment: Vikki Guaman WPtel: [address] [place], [place] [phone] FOLLOW UP 09/10/2009 Patient Education: Patient Medication Summary Completed 09/10/2009 Appointment: Vikki Guaman WPtel: [address] [place], [place] [phone] FOLLOW UP 08/11/2009 Patient Education: Patient Medication Summary Completed 08/11/2009 Appointment: Vikki Guaman WPtel: [address] [place], [place] [phone] [place] LAB 06/10/2009 Patient Education: Patient Medication Summary Completed 06/10/2009 Visit Plan: Check fasting lab in AM--CMP ,Lipids, CBC, Vit D, TSH,FreeT4, B12 06/09/2009 Appointment: Vikki Guaman WPtel: [address] [place], [place] [phone] FOLLOW UP 06/09/2009 Patient Education: Patient Medication Summary Completed 06/09/2009 Referral: Edy Cheek WPtel: #[address] Referral Appointment Requested Referral: Edy hCeek WPtel: #[address] Referral Initiated Instructions Comment . Supportive [...]
--- OUTSIDE RECORDS SUMMARY | 2019-04-25 20:32 | XMS REPORT | CCD ---
Author Author Evelyne Guaman D.O. 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 Name Role Phone Vikki Guaman D.O., PP Unavailable CCM Unavailable Summary Purpose Interface Exchange Insurance Providers Payer name Policy type / Coverage type Covered green party ID Effective Begin Date Effective End Date WPS MEDICARE PART B [place] Medicare Part B [id number] 2017 Unknown Aetna [facility] Medicare Part B [id number] Unknown Family history Father Diagnosis Age At Onset Heart disease Unknown Mother Diagnosis Age At Onset Heart disease Unknown Cancer Unknown Social History Social History Element Codes Description Effective Dates Tobacco history SNOMED CT: 604321020 Never smoker 09/29/2010 Marital status Unknown Single [...] R10.13 11/22/2017 Active 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: [...] Relief 50 mcg/actuation nasal spray,suspensi on RxNorm: 8405561 2 [place] Nasal every night at bedtime 03/13/2019 03/13/2019 Inactive simvastatin 40 mg tablet RxNorm: 357392 1 Tablet(s) PO QD 01/22/2019 04/21/2019 Active omeprazole 40 mg capsule,delayed release RxNorm: 234809 1 Capsu le(s) Oral QD 01/10/2019 07/08/2019 Active Xanax 0.25 mg tablet RxNorm: 068618 TAKE 1 TABLET BY MOUTH TWIC E DAILY 01/02/2019 No Stop Date Active omeprazole 40 mg capsule,delayed release RxNorm: 697102 1 Capsu le(s) PO QD 12/11/2018 01/09/2019 Inactive metoprolol tartrate 25 mg tablet RxNorm: 559930 1 Tablet(s) PO BID 11/20/2018 05/18/2019 Active omeprazole 40 mg capsule,delayed release RxNorm: 857572 1 Capsu le(s) PO QD 11/13/2018 12/10/2018 Inactive Flonase Allergy Relief 50 mcg/actuation nasal spray,suspensi on RxNorm: 2124048 2 [place] NASAL QHS 11/07/2018 03/12/2019 Inactive simvastatin 40 mg tablet RxNorm: 694386 1 Tablet(s) PO QD 10/23/2018 01/20/2019 Inactive simvastatin 40 mg tablet RxNorm: 443452 1 Tablet(s) PO QD 07/24/2018 10/21/2018 Inactive omeprazole 40 mg capsule,delayed release RxNorm: 986292 1 Capsu le(s) PO QD 07/13/2018 11/09/2018 Inactive simvastatin 40 mg tablet RxNorm: 316468 1 Tablet(s) PO QD 06/13/2018 07/12/2018 Inactive omeprazole 40 mg capsule,delayed release RxNorm: 024245 1 Capsu le(s) PO QD 06/13/2018 07/12/2018 Inactive Bactrim DS 800 mg-160 mg tablet RxNorm: 509975 1 Tablet(s) PO BID 0 05/12/2018 05/18/2018 Inactive Bactrim DS 800 mg-160 mg tablet RxNorm: 278970 1 Tablet(s) PO BID 0 05/12/2018 05/11/2018 Inactive Macrobid 100 mg capsule RxNorm: 811896 1 Capsule(s) PO BID 05/11/19 19 05/16/2018 Inactive metoprolol tartrate 25 mg tablet RxNorm: 620095 1 Tablet(s) PO BID 05/10/2018 11/05/2018 Inactive Xanax 0.25 mg tablet RxNorm: 721436 TAKE 1 TABLET BY MOUTH TWIC E DAILY 02/16/2018 01/01/2019 Inactive Xanax 0.25 mg tablet RxNorm: 502902 1 Tablet(s) PO BID 02/14/2018 Inactive Protonix 40 mg tablet,delayed release RxNorm: 200393 1 Tablet(s) PO BID for stomach--replaces omeprazole 01/10/2018 05/09/2018 Inactive Carafate 1 gram tablet RxNorm: 552869 1 Tablet(s) PO AC & HS 201705/09/2018 Inactive Xanax 0.25 mg tablet RxNorm: 735809 1 Tablet(s) PO BID 01/03/201812/2017 Inactive Bactrim DS 800 mg-160 mg tablet RxNorm: 543998 1 Tablet(s) PO BID 1 12/12/2017 Inactive Bactrim DS 800 mg-160 mg tablet RxNorm: 593808 1 Tablet(s) PO BID 1 12/07/2017 Inactive Carafate 1 gram tablet RxNorm: 381702 1 Tablet(s) PO AC & HS 201712/21/2017 Inactive Protonix 40 mg tablet,delayed release RxNorm: 341767 1 Tablet(s) PO BID for stomach--replaces omeprazole 11/22/2017 01/09/2018 Inactive Protonix 40 mg tablet,delayed release RxNorm: 599088 1 Tablet(s) PO BID for stomach--replaces omeprazole 10/20/2017 11/21/2017 Inactive fluticasone 50 mcg/actuation nasal spray,suspension RxNorm: 8386255 2 [place] NASAL QD to each nostril 07/07/2017 08/13/2018 Inactive Nasonex 50 mcg/actuation [place] RxNorm: 9352684 2 [place] NASAL 201707/07/2017 Inactive omeprazole 40 mg capsule,delayed release RxNorm: 535332 1 Capsu le(s) PO QD 04/18/2017 10/19/2017 Inactive simvastatin 40 mg tablet RxNorm: 196705 1 Tablet(s) PO QD TAKE 1 TABLET EVERY DAY 04/18/2017 04/12/2018 Inactive metoprolol tartrate 25 mg tablet RxNorm: 806534 1/2 Tablet(s) PO QD 04/18/2017 01/09/2018 Inactive simvastatin 40 mg tablet RxNorm: 646160 Tablet(s) TAKE 1 TABLET EVERY DAY 10/27/2016 04/17/2017 Inactive metoprolol tartrate 25 mg tablet RxNorm: 342605 1/2 Tablet(s) PO QD 09/20/2016 03/18/2017 Inactive Flonase 50 mcg/actuation nasal spray,suspension RxNorm: 1797 933 2 [place] NASAL BID 09/20/2016 04/17/2017 Inactive omeprazole 40 mg capsule,delayed release RxNorm: 376323 1 Capsu le(s) PO QD 09/08/2016 04/17/2017 Inactive metoprolol tartrate 25 mg tablet RxNorm: 244531 1/2 Tablet(s) PO QD 06/14/2016 09/19/2016 Inactive ciprofloxacin 0.2 % ear drops in a dropperette RxNorm: 29776 6 4 Drop(s) OTIC TID for 1 week 02/06/2016 05/11/2016 Inactive cefdinir 300 mg capsule RxNorm: 558445 2 Capsule(s) PO QD 02/06/2016 02/15/2016 Inactive omeprazole 40 mg capsule,delayed release RxNorm: 845057 TAKE 1 CAPSULE EVERY DAY 11/06/2015 09/08/2016 Inactive simvastatin 40 mg tablet RxNorm: 605943 TAKE 1 TABLET EVERY DAY 05/201510/27/2016 Inactive Flonase 50 mcg/actuation nasal spray,suspension RxNorm: 1797 933 2 [place] NASAL BID 02/19/2015 09/19/2016 Inactive cefuroxime axetil 250 mg tablet RxNorm: 509104 1 Tablet(s) PO BID 0 11/21/2014 11/20/2014 Inactive cefuroxime axetil 250 mg tablet RxNorm: 054906 1 Tablet(s) PO BID 0 11/21/2014 11/27/2014 Inactive omeprazole 40 mg capsule,delayed release RxNorm: 130938 1 Capsu le(s) PO QD 10/09/2014 01/05/2015 Inactive meloxicam 7.5 mg tablet RxNorm: 894295 1 Tablet(s) PO QD 07/11/2014 0 08/09/2014 Inactive loratadine 10 mg tablet RxNorm: 070828 1 Tablet(s) PO QAM for a llergies 10/17/2013 08/13/2018 Inactive Flonase 50 mcg/actuation nasal spray,suspension RxNorm: 8963 23 2 [place] NASAL BID 10/17/2013 02/18/2015 Inactive prednisone 20 mg tablet RxNorm: 533080 2 Tablet(s) PO BID 10/17/2013 10/21/2013 Inactive Dyazide 37.5 mg-25 mg capsule RxNorm: 971330 1 Capsule(s) PO QAM 10/16/2013 Inactive Ceftin 500 mg tablet RxNorm: 650445 1 Tablet(s) PO BID 05/31/201307/2013 Inactive Ceftin 500 mg tablet RxNorm: 921304 1 Tablet(s) PO BID 03/26/2013 Inactive simvastatin 40 mg tablet RxNorm: 797258 Tablet(s) PO TA KE ONE TABLET BY MOUTH EVERY DAY 03/26/2013 10/07/2015 Inactive metoprolol tartrate 25 mg tablet RxNorm: 951759 Tablet( s) PO TAKE ONE-HALF TABLET BY MOUTH EVERY DAY 03/26/2013 11/12/2014 Inactive Ceftin 500 mg tablet RxNorm: 886317 1 Tablet(s) PO BID 12/19/2012 Inactive loratadine 10 mg tablet RxNorm: 120416 1 Tablet(s) PO QAM for a llergies 10/04/2012 12/02/2012 Inactive omeprazole 20 mg capsule,delayed release RxNorm: 943355 Capsule(s) PO TAKE ONE CAPSULE BY MOUTH TWICE DAILY 08/09/2012 10/08/2014 Inactive omeprazole 20 mg capsule,delayed release RxNorm: 375332 1 Capsu le(s) PO BID 08/09/2012 05/09/2018 Inactive Augmentin 875 mg-125 mg tablet RxNorm: 557885 1 Tablet(s) PO Q12H 0 07/14/2012 07/23/2012 Inactive Floxin Otic Drops 1 bottle Drops RxNorm: 5 Drop(s) OTIC BID 07/20/2012 Inactive metoprolol tartrate 25 mg tablet RxNorm: 680166 Tablet( s) PO TAKE ONE-HALF TABLET BY MOUTH EVERY DAY 04/11/2012 03/25/2013 Inactive simvastatin 40 mg tablet RxNorm: 691677 Tablet(s) PO TA KE ONE TABLET BY MOUTH EVERY DAY 04/11/2012 03/25/2013 Inactive lancets RxNorm: Misc Miscellaneous USE ONE TO CH JEFFERY GLUCOSE EVERY DAY 04/04/2012 05/09/2018 Inactive Carafate 1 gram tablet RxNorm: 205712 1 Tablet(s) PO AC & HS 201111/12/2014 Inactive Flagyl 500 mg tablet RxNorm: 486602 1 Tablet(s) PO TID 12/15/2011 Inactive Carafate 1 gram tablet RxNorm: 756526 1 Tablet(s) PO AC & HS 201102/12/2012 Inactive One Touch Test strips RxNorm: Miscellaneous QD 09/21/2011 05/09/2018 Inactive one touch ultra mini test strips Protonix 40 mg Tab RxNorm: 497897 1 Tablet(s) PO QD 09/13/20112011 Inactive Protonix 40 mg Tab RxNorm: 458977 1 Tablet(s) PO QD 09/13/20112011 Inactive prednisone 20 mg Tab RxNorm: 778141 1 Tablet(s) PO BID 08/03/201106/2011 Inactive Flexeril 5 mg Tab RxNorm: 227831 1 Tablet(s) PO QHS for spasm 07/2508/24/2011 Inactive Flexeril 5 mg Tab RxNorm: 553920 1 Tablet(s) PO QHS for spasm 06/2707/25/2011 Inactive amlodipine 2.5 mg Tab RxNorm: 539513 1/2 Tablet(s) PO QD replac es 5mg dose 03/31/2011 06/27/2011 Inactive simvastatin 40 mg tablet RxNorm: 474588 1 Tablet(s) PO QD 03/31/2011 03/24/2012 Inactive metoprolol tartrate 25 mg tablet RxNorm: 971357 1/2 Tablet(s) PO QD 03/31/2011 03/24/2012 Inactive omeprazole 20 mg capsule,delayed release RxNorm: 154650 1 Capsu le(s) PO BID 03/31/2011 09/12/2011 Inactive cefdinir 300 mg Cap RxNorm: 425955 2 Capsule(s) PO QD 02/11/201102/04 Inactive simvastatin 40 mg Tab RxNorm: 184681 1 Tablet(s) PO QD 02/01/2011 Inactive metoprolol tartrate 25 mg Tab RxNorm: 754040 1/2 Tablet(s) PO QD 03/30/2011 Inactive metoprolol tartrate 25 mg Tab RxNorm: 662763 1/2 Tablet(s) PO QD 12/28/2010 Inactive meclizine 25 mg Tab RxNorm: 9616369 1 Tablet(s) PO QHS 10/15/201011/2010 Inactive for dizziness Ceftin 500 mg Tab RxNorm: 259293 1 Tablet(s) PO BID 07/02/20102010 Inactive omeprazole 20 mg Cap, Delayed Release RxNorm: 724040 1 Capsule( s) PO BID 07/02/2010 12/28/2010 Inactive simvastatin 40 mg Tab RxNorm: 731751 1 Tablet(s) PO QD 06/30/201007/2018 Inactive simvastatin 40 mg Tab RxNorm: 188484 1 Tablet(s) PO QD 06/30/2010 Inactive simvastatin 40 mg Tab RxNorm: 586492 1 Tablet(s) PO QD 02/25/2010 Inactive Tessalon Perles 100 mg Cap RxNorm: 337214 1 Capsule(s) PO Q6-8H 01/28/2010 Inactive cefdinir 300 mg Cap RxNorm: 455888 1 Capsule(s) PO BID 01/22/2010 Inactive Lexapro 10 mg Tab RxNorm: 634816 1 Tablet(s) PO QD 12/02/2009 010 Inactive Cipro 250 mg Tab RxNorm: 999274 1 Tablet(s) PO BID 12/02/2009 010 Inactive Wellbutrin XL 150 mg 24 hr Tab RxNorm: 185131 1 Tablet(s) PO QAM 08/07/2009 Inactive Fish Oil 1,000 mg Cap RxNorm: 1 Capsule(s) PO QD No Start Date Active Tylenol Extra Strength 500 mg tablet RxNorm: 153820 1/2 Tablet( s) PO as needed No Start Date Active nitroglycerin 0.4 mg sublingual tablet RxNorm: 683494 Tablet(s) SL as needed No Start Date Active Calcium with Vitamin D 600 mg (1,500 mg)-400 unit tablet RxN orm: 265143 1 Tablet(s) PO QD No Start Date Active Multivitamin & Mineral Formula Tab RxNorm: 1 Tablet(s) PO QD No St art Date Active vitamin B complex capsule RxNorm: 1 Capsule(s) PO QD No Start Date Active Aspirin 81 mg Tab RxNorm: 124267 1 Tablet(s) PO QD No Start Date Active isosorbide mononitrate ER 30 mg tablet,extended release 24 h r RxNorm: 638127 1 Tablet(s) PO QHS No Start Date Active Vitamin D 1,000 unit Cap RxNorm: 001016 1 Capsule(s) PO QD No Start D ate Active Co Q-10 oral RxNorm: 95780 oral No Start Date Active metoprolol tartrate 25 mg Tab RxNorm: 387213 1/2 Tablet(s) PO QD No Start Date 12/27/2010 Inactive Nasonex 50 mcg/actuation [place] RxNorm: 0521797 2 [place] NASAL No Sta rt Date 07/06/2017 Inactive Vitamin B12 1000mcg Tablet RxNorm: 1 Tablet(s) PO QD No Start Date 11/12/2014 Inactive amlodipine 5 mg Tab RxNorm: 758606 1 Tablet(s) PO QD No Start Date Inactive simvastatin 40 mg tablet RxNorm: 906727 1 Tablet(s) PO QD No Start Date 06/12/2018 Inactive omeprazole 20 mg capsule,delayed release RxNorm: 405340 1 Capsu le(s) PO BID No Start Date 08/08/2012 Inactive omeprazole 40 mg capsule,delayed release RxNorm: 249452 1 Capsu le(s) PO QD No Start Date 06/12/2018 Inactive Nexium 40 mg Cap RxNorm: 350620 1 Capsule(s) PO QD No Start Date 01/05 Inactive Stool Softener 100 mg Tab RxNorm: 7259043 2 Tablet(s) PO BID No Sta rt Date 03/30/2011 Inactive Calcium with Vitamin D 600 mg (1,500 mg)-400 unit Tab RxNorm : 531796 1 Tablet(s) PO QD No Start Date 11/12/2014 Inactive iron 325 mg (65 mg iron) Tab RxNorm: 744045 1 Tablet(s) PO QD No St art Date 11/12/2014 Inactive Flonase 50 mcg/actuation Nasal [place] RxNorm: 721306 2 [place] DEMOND AL BID No Start Date 10/16/2013 Inactive fluticasone 50 mcg/actuation nasal spray,suspension RxNorm: 6827069 2 [place] NASAL QD to each nostril No Start Date 07/06/2017 Inactive Nasonex 50 mcg/actuation [place] RxNorm: 7648557 2 [place] NASAL QD No Start Date 07/06/2017 Inactive hydralazine 50 mg tablet RxNorm: 738849 1 Tablet(s) PO as needed for BP over 160/90 No Start Date 11/21/2017 Inactive Vimovo 500 mg-20 mg 12 hr Tab RxNorm: 431396 1 Tablet(s) PO BID No Start Date 02/10/2011 Inactive Tylenol PM 25 mg-500 mg/15 mL Oral Soln RxNorm: 5866232 1 PO QPM No Start Date 11/12/2014 Inactive Iron (Ferrous Sulfate) Oral RxNorm: Oral No Start Date 03/30/19 12 Inactive Reglan 10 mg Tab RxNorm: 571903 1 Tablet(s) PO TID before meals No Start Date 02/10/2011 Inactive Xanax 1 mg Tab RxNorm: 104442 1/2 Tablet(s) PO QD No Start Date 11/21 Inactive amlodipine 10 mg tablet RxNorm: 247952 1 Tablet(s) PO QD No Start D ate 09/23/2013 Inactive Iron (dried) Oral RxNorm: Oral No Start Date 03/30/2011 Inactiv e metoprolol tartrate 50 mg tablet RxNorm: 564979 1 Tablet(s) PO BID No Start Date 02/13/2018 Inactive Xanax 0.25 mg tablet RxNorm: 219817 1 Tablet(s) PO BID No Start Date 01/02/2018 Inactive lancets RxNorm: Miscellaneous check blood sugar at least once daily No Start Date 04/03/2012 Inactive simvastatin 40 mg Tab RxNorm: 659710 1 Tablet(s) PO QD No Start Date 02/24/2010 Inactive isosorbide mononitrate ER 30 mg tablet,extended release 24 h r RxNorm: 288037 1 Tablet(s) PO QHS No Start Date 08/13/2018 Inactive amlodipine 2.5 mg tablet RxNorm: 003676 1 Tablet(s) PO QD No Start Date 09/23/2013 Inactive sucralfate 1 gram tablet RxNorm: 195036 1 Tablet(s) PO QID No Start Date 05/09/2018 Inactive Fish Oil Oral RxNorm: Oral No Start Date 03/31/2011 Inactive Multiple Vitamin Oral RxNorm: Oral No Start Date 03/31/2011 Franny ctive metoprolol tartrate 25 mg tablet RxNorm: 102377 1/2 Tablet(s) P O QD No Start Date 06/13/2016 Inactive metoprolol tartrate 50 mg tablet RxNorm: 089534 1/2 Tablet(s) P O BID No Start Date 05/09/2018 Inactive Flonase Allergy Relief 50 mcg/actuation nasal spray,suspensi on RxNorm: 9231914 2 [place] NASAL QHS No Start Date 11/06/2018 Inactive [...] Item Code Result Date S ervice Location GFR CALC 6362358 GFR Non Afr Amr 52 mL/min 12/15/2018 Unk nown GFR CALC [id number] GFR Afr Amr >60 mL/min 12/15/2018 Unknow n COMPREHENSIVE METABOLIC 55051 AST 17 U/L 2018 Unknown COMPREHENSIVE METABOLIC 25287 ALT 11 U/L 2018 Unknown COMPREHENSIVE METABOLIC 77553 BUN 17 mg/dL 2018 Unknown COMPREHENSIVE METABOLIC 17966 ALBUMIN 3.9 g/dL 2018 Unknown COMPREHENSIVE METABOLIC 64109 CHLORIDE 108 mmol/L 12/15 Unknown COMPREHENSIVE METABOLIC 81656 Bili Total 0.5 mg/dL 12/15 Unknown COMPREHENSIVE METABOLIC 07147 ALK PHOS 72 U/L 2018 Unknown COMPREHENSIVE METABOLIC 69203 SODIUM 142 mmol/L 12/15 Unknown COMPREHENSIVE METABOLIC 08237 CREATININE 1.02 mg/dL 12/05 Unknown COMPREHENSIVE METABOLIC 85818 CALCIUM 9.3 mg/dL 2018 Unknown COMPREHENSIVE METABOLIC 25391 POTASSIUM 4.0 mmol/L 12/15 Unknown COMPREHENSIVE METABOLIC 72436 Total Protein 6.2 g/dL Unknown COMPREHENSIVE METABOLIC 99216 Glucose 93 mg/dL 2018 Unknown COMPREHENSIVE METABOLIC 97365 Bicarbonate 27 mmol/L 12/05 Unknown COMPREHENSIVE METABOLIC 44692 AGAP 7 mmol/L 2018 Unknown GFR CALC 5257737 GFR Non Afr Amr 48 mL/min 08/14/2018 Unk nown GFR CALC 9695744 GFR Afr Amr 59 mL/min 08/14/2018 Unknown THYROID STIMULATING HORMONE 47516 TSH 1.936 uIU/mL 08/14/2018 Unknown COMPREHENSIVE METABOLIC 70270 AST 18 U/L 2018 Unknown COMPREHENSIVE METABOLIC 47708 ALT 11 U/L 2018 Unknown COMPREHENSIVE METABOLIC 73432 BUN 18 mg/dL 2018 Unknown COMPREHENSIVE METABOLIC 81740 ALBUMIN 4.2 g/dL 2018 Unknown COMPREHENSIVE METABOLIC 06029 CHLORIDE 109 mmol/L 08/14 Unknown COMPREHENSIVE METABOLIC 62035 Bili Total 0.4 mg/dL 08/14 Unknown COMPREHENSIVE METABOLIC 07497 ALK PHOS 64 U/L 2018 Unknown COMPREHENSIVE METABOLIC 01008 SODIUM 142 mmol/L 08/14 Unknown COMPREHENSIVE METABOLIC 61093 CREATININE 1.09 mg/dL 08/05 Unknown COMPREHENSIVE METABOLIC 84317 CALCIUM 9.3 mg/dL 2018 Unknown COMPREHENSIVE METABOLIC 86474 POTASSIUM 4.7 mmol/L 08/14 Unknown COMPREHENSIVE METABOLIC 62539 Total Protein 6.3 g/dL Unknown COMPREHENSIVE METABOLIC 76828 Glucose 84 mg/dL 2018 Unknown COMPREHENSIVE METABOLIC 66391 Bicarbonate 25 mmol/L 08/05 Unknown COMPREHENSIVE METABOLIC 45985 AGAP 8 mmol/L 2018 Unknown COMPLETE BLOOD COUNT [id number] WBC 7.8 10e9/L 08/15/19 19 Unknown COMPLETE BLOOD COUNT [id number] RBC 4.04 10e12/L 2018 Unknown COMPLETE BLOOD COUNT [id number] HEMOGLOBIN 12.2 g/dL 08/15/19 19 Unknown COMPLETE BLOOD COUNT [id number] HEMATOCRIT 38.6 % 08/15/19 19 Unknown COMPLETE BLOOD COUNT [id number] MCV 95.5 fL 9 Unknown COMPLETE BLOOD COUNT [id number] MCH 30.2 pg 9 Unknown COMPLETE BLOOD COUNT [id number] MCHC 31.6 g/dL 9 Unknown COMPLETE BLOOD COUNT [id number] PLATELET COUNT 215 10e9/L 12/2018 Unknown COMPLETE BLOOD COUNT [id number] Mean Plt Volume 11.2 fL 12/2018 Unknown COMPLETE BLOOD COUNT [id number] Neut Auto 45.7 % 9 Unknown COMPLETE BLOOD COUNT [id number] Lymph Auto 42.1 % 08/15/19 19 Unknown COMPLETE BLOOD COUNT [id number] [place] Auto 9.2 % 9 Unknown COMPLETE BLOOD COUNT [id number] RDW 13.4 % 9 Unknown COMPLETE BLOOD COUNT [id number] Eos Auto 2.7 % 9 Unknown COMPLETE BLOOD COUNT [id number] Baso Auto 0.3 % 9 Unknown COMPLETE BLOOD COUNT [id number] Neutrophil Abs 3.56 10e9/L Unknown COMPLETE BLOOD COUNT [id number] Lymphocyte Abs 3.28 10e9/L Unknown COMPLETE BLOOD COUNT [id number] Monocyte Abs 0.72 10e9/L 08/05 Unknown COMPLETE BLOOD COUNT [id number] Eosinophil Abs 0.21 10e9/L Unknown COMPLETE BLOOD COUNT [id number] RDW-SD 44.9 fL 9 Unknown COMPLETE BLOOD COUNT [id number] Basophil Abs 0.02 10e9/L 08/05 Unknown COMPLETE BLOOD COUNT [id number] WBC 5.2 10e9/L 12/01/19 18 Unknown COMPLETE BLOOD COUNT [id number] RBC 4.21 10e12/L 2017 Unknown COMPLETE BLOOD COUNT [id number] HEMOGLOBIN 12.8 g/dL 12/01/19 18 Unknown COMPLETE BLOOD COUNT [id number] HEMATOCRIT 39.0 % 12/01/19 18 Unknown COMPLETE BLOOD COUNT [id number] MCV 92.6 fL 8 Unknown COMPLETE BLOOD COUNT [id number] MCH 30.4 pg 8 Unknown COMPLETE BLOOD COUNT [id number] MCHC 32.8 g/dL 8 Unknown COMPLETE BLOOD COUNT [id number] PLATELET COUNT 202 10e9/L Unknown COMPLETE BLOOD COUNT [id number] Mean Plt Volume 10.7 fL Unknown COMPLETE BLOOD COUNT [id number] Neut Auto 40.9 % 8 Unknown COMPLETE BLOOD COUNT [id number] Lymph Auto 46.3 % 12/01/19 18 Unknown COMPLETE BLOOD COUNT [id number] [place] Auto 9.3 % 8 Unknown COMPLETE BLOOD COUNT [id number] RDW 13.7 % 8 Unknown COMPLETE BLOOD COUNT [id number] Eos Auto 2.9 % 8 Unknown COMPLETE BLOOD COUNT [id number] Baso Auto 0.6 % 8 Unknown COMPLETE BLOOD COUNT [id number] Neutrophil Abs 2.13 10e9/L Unknown COMPLETE BLOOD COUNT [id number] Lymphocyte Abs 2.41 10e9/L Unknown COMPLETE BLOOD COUNT [id number] Monocyte Abs 0.48 10e9/L 11/06 Unknown COMPLETE BLOOD COUNT [id number] Eosinophil Abs 0.15 10e9/L Unknown COMPLETE BLOOD COUNT [id number] RDW-SD 45.2 fL 8 Unknown COMPLETE BLOOD COUNT [id number] Basophil Abs 0.03 10e9/L 11/06 [place] [address] Glucose 118 mg/dL 11/30 [place] [address] CREATININE 1.01 mg/dL [place] [address] BUN 14 mg/dL 11/30 [place] [address] SODIUM 141 mmol/L 11/06 [place] [address] POTASSIUM 4.0 mmol/L 11/06 [place] [address] CHLORIDE 108 mmol/L 11/06 [place] [address] Bicarbonate 25 mmol/L [place] [address] AGAP 8 mmol/L 11/30 [place] [address] CALCIUM 9.6 mg/dL 11/30 Unknown FREE T4 48319 T4 Free 1.23 ng/dL 11/30/2017 Unknown GFR CALC 9874364 GFR Non Afr Amr 53 mL/min 11/30/2017 Unk nown GFR CALC 9377689 GFR Afr Amr >60 mL/min 11/30/2017 Unknow n THYROID STIMULATING HORMONE 90912 TSH 2.124 uIU/mL 11/30/2017 Unknown LIPID GROUP 31384 Cholesterol 152 mg/dL 09/28/2017 Unkno wn LIPID GROUP 32910 Triglyceride 151 mg/dL 09/28/2017 Unkn own LIPID GROUP 98264 HDL CHOLESTEROL 47 mg/dL 09/28/2017 U nknown LIPID GROUP 81940 Chol/HDL Ratio 3.23 ratio 09/28/2017 U nknown LIPID GROUP 55072 NON-HDL Chol 105 mg/dL 09/28/2017 Unkn own LIPID GROUP 77402 LDL Cholesterol 75 mg/dL 09/28/2017 U nknown ASSAY OF TROPONIN QUANT 48516 Troponin-I <0.30 ng/mL Unknown COMPREHENSIVE METABOLIC 63119 AST 20 U/L 2017 Unknown COMPREHENSIVE METABOLIC 89440 ALT 14 U/L 2017 Unknown COMPREHENSIVE METABOLIC 03215 BUN 19 mg/dL 2017 Unknown COMPREHENSIVE METABOLIC 16674 ALBUMIN 4.2 g/dL 2017 Unknown COMPREHENSIVE METABOLIC 55880 CHLORIDE 102 mmol/L 09/27 Unknown COMPREHENSIVE METABOLIC 89234 Bili Total 0.4 mg/dL 09/27 Unknown COMPREHENSIVE METABOLIC 68124 ALK PHOS 66 U/L 2017 Unknown COMPREHENSIVE METABOLIC 35762 SODIUM 135 mmol/L 09/27 Unknown COMPREHENSIVE METABOLIC 18165 CREATININE 1.01 mg/dL 09/05 Unknown COMPREHENSIVE METABOLIC 30644 CALCIUM 9.3 mg/dL 2017 Unknown COMPREHENSIVE METABOLIC 88997 POTASSIUM 4.8 mmol/L 09/27 Unknown COMPREHENSIVE METABOLIC 95346 Total Protein 7.0 g/dL Unknown COMPREHENSIVE METABOLIC 52452 Glucose 91 mg/dL 2017 Unknown COMPREHENSIVE METABOLIC 29891 Bicarbonate 23 mmol/L 09/05 Unknown COMPREHENSIVE METABOLIC 19721 AGAP 10 mmol/L 2017 Unknown COMPLETE BLOOD COUNT [id number] WBC 7.5 10e9/L 09/28/19 18 Unknown COMPLETE BLOOD COUNT [id number] RBC 4.13 10e12/L 2017 Unknown COMPLETE BLOOD COUNT [id number] HEMOGLOBIN 12.6 g/dL 09/28/19 18 Unknown COMPLETE BLOOD COUNT [id number] HEMATOCRIT 38.4 % 09/28/19 18 Unknown COMPLETE BLOOD COUNT 8482011 MCV 93.0 fL 8 Unknown COMPLETE BLOOD COUNT [id number] MCH 30.5 pg 8 Unknown COMPLETE BLOOD COUNT [id number] MCHC 32.8 g/dL 8 Unknown COMPLETE BLOOD COUNT [id number] PLATELET COUNT 204 10e9/L Unknown COMPLETE BLOOD COUNT 8769104 Mean Plt Volume 10.9 fL Unknown COMPLETE BLOOD COUNT 1548641 Neut Auto 43.1 % 8 Unknown COMPLETE BLOOD COUNT [id number] Lymph Auto 45.0 % 09/28/19 18 Unknown COMPLETE BLOOD COUNT 8044193 [place] Auto 9.2 % 8 Unknown COMPLETE BLOOD COUNT 3659042 RDW 13.4 % 8 Unknown COMPLETE BLOOD COUNT 9585445 Eos Auto 2.3 % 8 Unknown COMPLETE BLOOD COUNT [id number] Baso Auto 0.4 % 8 Unknown COMPLETE BLOOD COUNT [id number] Neutrophil Abs 3.23 10e9/L Unknown COMPLETE BLOOD COUNT [id number] Lymphocyte Abs 3.38 10e9/L Unknown COMPLETE BLOOD COUNT [id number] Monocyte Abs 0.69 10e9/L 09/05 Unknown COMPLETE BLOOD COUNT [id number] Eosinophil Abs 0.17 10e9/L Unknown COMPLETE BLOOD COUNT [id number] RDW-SD 44.4 fL 8 Unknown COMPLETE BLOOD COUNT [id number] Basophil Abs 0.03 10e9/L 09/05 Unknown GFR CALC 0110370 GFR Non Afr Amr 53 mL/min 09/27/2017 Unk nown GFR CALC 0102778 GFR Afr Amr >60 mL/min 09/27/2017 Unknow n GLYCOSYLATED HEMOGLOBIN TEST 10570 Hgb A1c 61720-9 5.4 % 0 09/27/2017 Unknown MEAN GLUC 5828493 Calc Mean Gluc 108 mg/dL 09/27/2017 Unkn own MEAN GLUC 3716300 Calc Mean Gluc 114 mg/dL 11/01/2016 Unkn own LIPID GROUP 00266 Cholesterol 146 mg/dL 11/01/2016 Unkno wn LIPID GROUP 44707 Triglyceride 119 mg/dL 11/01/2016 Unkn own LIPID GROUP 07897 HDL CHOLESTEROL 47 mg/dL 11/01/2016 U nknown LIPID GROUP 48781 Chol/HDL Ratio 3.11 ratio 11/01/2016 U nknown LIPID GROUP 85903 NON-HDL Chol 99 mg/dL 11/01/2016 Unkn own LIPID GROUP 60535 LDL Cholesterol 75 mg/dL 11/01/2016 U nknown GLYCOSYLATED HEMOGLOBIN TEST 26685 Hgb A1c 19442-6 5.6 % 0 11/01/2016 Unknown COMPREHENSIVE METABOLIC 21042 AST 22 U/L 2016 Unknown COMPREHENSIVE METABOLIC 37752 ALT 12 U/L 2016 Unknown COMPREHENSIVE METABOLIC 18344 BUN 17 mg/dL 2016 Unknown COMPREHENSIVE METABOLIC 30763 ALBUMIN 4.0 g/dL 2016 Unknown COMPREHENSIVE METABOLIC 64930 CHLORIDE 110 mmol/L 11/01 Unknown COMPREHENSIVE METABOLIC 76786 Bili Total 0.4 mg/dL 11/01 Unknown COMPREHENSIVE METABOLIC 98262 ALK PHOS 63 U/L 2016 Unknown COMPREHENSIVE METABOLIC 99474 SODIUM 140 mmol/L 11/01 Unknown COMPREHENSIVE METABOLIC 69081 CREATININE 1.05 mg/dL 10/06 Unknown COMPREHENSIVE METABOLIC 09178 CALCIUM 9.2 mg/dL 2016 Unknown COMPREHENSIVE METABOLIC 04141 POTASSIUM 4.2 mmol/L 11/01 Unknown COMPREHENSIVE METABOLIC 42348 Total Protein 6.2 g/dL Unknown COMPREHENSIVE METABOLIC 61080 Glucose 87 mg/dL 2016 Unknown COMPREHENSIVE METABOLIC 70593 Bicarbonate 24 mmol/L 10/06 Unknown COMPREHENSIVE METABOLIC 30065 AGAP 6 mmol/L 2016 Unknown GFR CALC [id number] GFR Non Afr Amr 51 mL/min 11/01/2016 Unk nown GFR CALC [id number] GFR Afr Amr >60 mL/min 11/01/2016 Unknow n COMPLETE BLOOD COUNT [id number] WBC 6.7 10e9/L 11/02/19 17 Unknown COMPLETE BLOOD COUNT [id number] RBC 4.04 10e12/L 2016 Unknown COMPLETE BLOOD COUNT [id number] HEMOGLOBIN 12.1 g/dL 11/02/19 17 Unknown COMPLETE BLOOD COUNT 9346525 HEMATOCRIT 38.0 % 11/02/19 17 Unknown COMPLETE BLOOD COUNT 8131559 MCV 94.1 fL 7 Unknown COMPLETE BLOOD COUNT 1520032 MCH 30.0 pg 7 Unknown COMPLETE BLOOD COUNT 7722784 MCHC 31.8 g/dL 7 Unknown COMPLETE BLOOD COUNT 2788964 PLATELET COUNT 206 10e9/L Unknown COMPLETE BLOOD COUNT 7705476 Mean Plt Volume 11.3 fL Unknown COMPLETE BLOOD COUNT 6336950 Neut Auto 35.8 % 7 Unknown COMPLETE BLOOD COUNT 0887100 Lymph Auto 51.6 % 11/02/19 17 Unknown COMPLETE BLOOD COUNT 7310307 Meeker Auto 8.8 % 7 Unknown COMPLETE BLOOD COUNT 8106727 RDW 13.5 % 7 Unknown COMPLETE BLOOD COUNT 9084966 Eos Auto 3.4 % 7 Unknown COMPLETE BLOOD COUNT 7769899 Baso Auto 0.4 % 7 Unknown COMPLETE BLOOD COUNT 5309344 Neutrophil Abs 2.40 10e9/L Unknown COMPLETE BLOOD COUNT [id number] Lymphocyte Abs 3.46 10e9/L Unknown COMPLETE BLOOD COUNT 0845693 Monocyte Abs 0.59 10e9/L 10/06 Unknown COMPLETE BLOOD COUNT 5271381 Eosinophil Abs 0.23 10e9/L Unknown COMPLETE BLOOD COUNT 2958322 RDW-SD 45.3 fL 7 Unknown COMPLETE BLOOD COUNT [id number] Basophil Abs 0.03 10e9/L 10/06 Unknown THYROID STIMULATING HORMONE 46384 TSH 1.981 uIU/mL 11/01/2016 Unknown COMPLETE BLOOD COUNT [id number] WBC 6.0 10e9/L 05/14/19 17 Unknown COMPLETE BLOOD COUNT 1789816 RBC 4.29 10e12/L 2016 Unknown COMPLETE BLOOD COUNT 5040515 HEMOGLOBIN 12.9 g/dL 05/14/19 17 Unknown COMPLETE BLOOD COUNT 6389283 HEMATOCRIT 38.4 % 05/14/19 17 Unknown COMPLETE BLOOD COUNT 9747788 MCV 89.5 fL 7 Unknown COMPLETE BLOOD COUNT 6572995 MCH 30.1 pg 7 Unknown COMPLETE BLOOD COUNT 4464930 MCHC 33.6 g/dL 7 Unknown COMPLETE BLOOD COUNT 3083733 PLATELET COUNT 181 10e9/L 11/2016 Unknown COMPLETE BLOOD COUNT 3880843 Mean Plt Volume 11.7 fL 11/2016 Unknown COMPLETE BLOOD COUNT 7912081 Neut Auto 36.9 % 7 Unknown COMPLETE BLOOD COUNT 4704193 Lymph Auto 50.4 % 05/14/19 17 Unknown COMPLETE BLOOD COUNT 6277883 Meeker Auto 9.0 % 7 Unknown COMPLETE BLOOD COUNT 8452210 RDW 13.7 % 7 Unknown COMPLETE BLOOD COUNT 1745091 Eos Auto 3.4 % 7 Unknown COMPLETE BLOOD COUNT 1606320 Baso Auto 0.3 % 7 Unknown COMPLETE BLOOD COUNT 0964945 Neutrophil Abs 2.21 10e9/L Unknown COMPLETE BLOOD COUNT 5742428 Lymphocyte Abs 3.02 10e9/L Unknown COMPLETE BLOOD COUNT 1694817 Monocyte Abs 0.54 10e9/L 11/2016 Unknown COMPLETE BLOOD COUNT [id number] Eosinophil Abs 0.20 10e9/L Unknown COMPLETE BLOOD COUNT 3545641 RDW-SD 44.0 fL 7 Unknown COMPLETE BLOOD COUNT [id number] Basophil Abs 0.02 10e9/L 11/2016 Unknown GLYCOSYLATED HEMOGLOBIN TEST 35283 Hgb A1c 50505-2 5.4 % 0 05/13/2016 Unknown THYROID STIMULATING HORMONE 76635 TSH 2.200 uIU/mL 05/13/2016 Unknown GFR CALC 5843559 GFR Non Afr Amr 50 mL/min 05/13/2016 Unk nown GFR CALC 8268475 GFR Afr Amr >60 mL/min 05/13/2016 Unknow n MEAN GLUC 0824861 Calc Mean Gluc 108 mg/dL 05/13/2016 Unkn own COMPREHENSIVE METABOLIC 50835 AST 18 U/L 2016 Unknown COMPREHENSIVE METABOLIC 92835 ALT 10 U/L 2016 Unknown COMPREHENSIVE METABOLIC 77280 BUN 20 mg/dL 2016 Unknown COMPREHENSIVE METABOLIC 74719 ALBUMIN 4.1 g/dL 2016 Unknown COMPREHENSIVE METABOLIC 24997 CHLORIDE 109 mmol/L 05/13 Unknown COMPREHENSIVE METABOLIC 27667 Bili Total 0.6 mg/dL 05/13 Unknown COMPREHENSIVE METABOLIC 64146 ALK PHOS 64 U/L 2016 Unknown COMPREHENSIVE METABOLIC 53046 SODIUM 141 mmol/L 05/13 Unknown COMPREHENSIVE METABOLIC 33475 CREATININE 1.06 mg/dL 11/2016 Unknown COMPREHENSIVE METABOLIC 53722 CALCIUM 9.9 mg/dL 2016 Unknown COMPREHENSIVE METABOLIC 75210 POTASSIUM 4.2 mmol/L 05/13 Unknown COMPREHENSIVE METABOLIC 26676 Total Protein 6.3 g/dL Unknown COMPREHENSIVE METABOLIC 29384 Glucose 99 mg/dL 2016 Unknown COMPREHENSIVE METABOLIC 15290 Bicarbonate 21 mmol/L 11/2016 Unknown COMPREHENSIVE METABOLIC 69733 AGAP 11 mmol/L 2016 Unknown LIPID GROUP 83323 Cholesterol 169 mg/dL 11/25/2015 Unkno wn LIPID GROUP 04429 Triglyceride 165 mg/dL 11/25/2015 Unkn own LIPID GROUP 24251 HDL CHOLESTEROL 43 mg/dL 11/25/2015 U nknown LIPID GROUP 09213 Chol/HDL Ratio 3.93 ratio 11/25/2015 U nknown LIPID GROUP 41289 NON-HDL Chol 126 mg/dL 11/25/2015 Unkn own LIPID GROUP 42154 LDL Cholesterol 93 mg/dL 11/25/2015 U nknown COMPREHENSIVE METABOLIC 96742 AST 18 U/L 2015 Unknown COMPREHENSIVE METABOLIC 12168 ALT 10 U/L 2015 Unknown COMPREHENSIVE METABOLIC 61941 BUN 20 mg/dL 2015 Unknown COMPREHENSIVE METABOLIC 85210 ALBUMIN 3.9 g/dL 2015 Unknown COMPREHENSIVE METABOLIC 28705 CHLORIDE 110 mmol/L 11/24 Unknown COMPREHENSIVE METABOLIC 23118 Bili Total 0.5 mg/dL 11/24 Unknown COMPREHENSIVE METABOLIC 37652 ALK PHOS 72 U/L 2015 Unknown COMPREHENSIVE METABOLIC 87366 SODIUM 141 mmol/L 11/24 Unknown COMPREHENSIVE METABOLIC 41901 CREATININE 1.12 mg/dL 11/06 Unknown COMPREHENSIVE METABOLIC 73356 CALCIUM 9.7 mg/dL 2015 Unknown COMPREHENSIVE METABOLIC 96307 POTASSIUM 4.4 mmol/L 11/24 Unknown COMPREHENSIVE METABOLIC 10982 Total Protein 6.2 g/dL Unknown COMPREHENSIVE METABOLIC 32386 Glucose 90 mg/dL 2015 Unknown COMPREHENSIVE METABOLIC 51932 Bicarbonate 23 mmol/L 11/06 Unknown COMPREHENSIVE METABOLIC 54583 AGAP 8 mmol/L 2015 Unknown GFR CALC 0423268 GFR Non Afr Amr 47 mL/min 11/25/2015 Unk nown GFR CALC 6018356 GFR Afr Amr 57 mL/min 11/25/2015 Unknown GLYCOSYLATED HEMOGLOBIN TEST 11173 Hgb A1c 15538-3 5.5 % 0 11/25/2015 Unknown THYROID STIMULATING HORMONE 99677 TSH 2.537 uIU/mL 11/25/2015 Unknown FREE T4 29196 T4 Free 1.36 ng/dL 11/25/2015 Unknown COMPLETE BLOOD COUNT 9291377 WBC 6.8 10e9/L 11/25/19 16 Unknown COMPLETE BLOOD COUNT 4068163 RBC 4.20 10e12/L 2015 Unknown COMPLETE BLOOD COUNT 6737556 HEMOGLOBIN 12.5 g/dL 11/25/19 16 Unknown COMPLETE BLOOD COUNT 3575922 HEMATOCRIT 38.0 % 11/25/19 16 Unknown COMPLETE BLOOD COUNT 6279159 MCV 90.5 fL 6 Unknown COMPLETE BLOOD COUNT 2290319 MCH 29.8 pg 6 Unknown COMPLETE BLOOD COUNT 6631231 MCHC 32.9 g/dL 6 Unknown COMPLETE BLOOD COUNT 4822240 PLATELET COUNT 197 10e9/L Unknown COMPLETE BLOOD COUNT 2128476 Mean Plt Volume 11.7 fL Unknown COMPLETE BLOOD COUNT 0699717 Neut Auto 41.3 % 6 Unknown COMPLETE BLOOD COUNT 8078140 Lymph Auto 47.1 % 11/25/19 16 Unknown COMPLETE BLOOD COUNT 1271823 Meeker Auto 7.8 % 6 Unknown COMPLETE BLOOD COUNT 2355590 RDW 13.8 % 6 Unknown COMPLETE BLOOD COUNT 4580842 Eos Auto 3.4 % 6 Unknown COMPLETE BLOOD COUNT 1896518 Baso Auto 0.4 % 6 Unknown COMPLETE BLOOD COUNT 9591567 Neutrophil Abs 2.81 10e9/L Unknown COMPLETE BLOOD COUNT 5412796 Lymphocyte Abs 3.20 10e9/L Unknown COMPLETE BLOOD COUNT 8923050 Monocyte Abs 0.53 10e9/L 11/06 Unknown COMPLETE BLOOD COUNT 4404393 Eosinophil Abs 0.23 10e9/L Unknown COMPLETE BLOOD COUNT 6980521 RDW-SD 44.4 fL 6 Unknown COMPLETE BLOOD COUNT 8438097 Basophil Abs 0.03 10e9/L 11/06 Unknown MEAN GLUC 0794913 Calc Mean Gluc 111 mg/dL 11/25/2015 [place] [address] Glucose 89 MG/DL 02/19 [place] [address] CREATININE 1.12 MG/DL [place] [address] BUN 20 MG/DL 02/19 [place] [address] SODIUM 139 MMOL/L 02/04 [place] [address] POTASSIUM 4.6 MMOL/L 02/04 [place] [address] CHLORIDE 108 MMOL/L 02/04 [place] [address] BICARB 26 MMOL/L 02/19 [place] [address] ANION GAP 5 MEQ/L 02/19 [place] [address] CALCIUM 10.0 MG/DL 02/04 Unknown GFR CALC 7609475 GFR AA 57.0L ML/MIN 02/19/2015 Unknow n GFR CALC 4635963 GFR NON-AA 47.0L ML/MIN 02/19/2015 Unkno wn THYROID STIMULATING HORMONE 38509 TSH 2.378 uIU/ML 11/14/2014 Unknown COMPLETE BLOOD COUNT 3418544 WBC 6.4 10e9/L 11/15/19 15 Unknown COMPLETE BLOOD COUNT 9058455 RBC 3.99 10e12/L 2014 Unknown COMPLETE BLOOD COUNT 1620643 HGB 11.9 g/dL 5 Unknown COMPLETE BLOOD COUNT 8100549 HCT DET 36.9 % 5 Unknown COMPLETE BLOOD COUNT 5166939 MCV 92.5 fL 5 Unknown COMPLETE BLOOD COUNT 5538015 MCH 29.8 pg 5 Unknown COMPLETE BLOOD COUNT 0477162 MCHC 32.2 g/dL 5 Unknown COMPLETE BLOOD COUNT 0733728 PLT 172 10e9/L 11/15/19 15 Unknown COMPLETE BLOOD COUNT 0777647 MPV 11.7 fL 5 Unknown COMPLETE BLOOD COUNT 6293478 CINTHYA % 40.4 % 5 Unknown COMPLETE BLOOD COUNT 8628965 LY % 48.0 % 5 Unknown COMPLETE BLOOD COUNT 8207758 MON % 8.3 % 5 Unknown COMPLETE BLOOD COUNT 8396791 EOS % 2.8 % 5 Unknown COMPLETE BLOOD COUNT 0235396 BASO % 0.5 % 5 Unknown COMPLETE BLOOD COUNT 0877322 RDW 13.6 % 5 Unknown COMPLETE BLOOD COUNT 9753686 ABS CINTHYA 2.59 10e9/L 015 Unknown COMPLETE BLOOD COUNT 5809546 ABS LYMPH 3.07 10e9/L 015 Unknown COMPLETE BLOOD COUNT 9592680 ABS MONO 0.53 10e9/L 015 Unknown COMPLETE BLOOD COUNT 1476922 ABS EOS 0.18 10e9/L 015 Unknown COMPLETE BLOOD COUNT 1212711 ABS BASO 0.03 10e9/L 015 Unknown COMPLETE BLOOD COUNT 7425734 RDW-SD 44.9 fL 5 Unknown LIPID GROUP 10068 HDL TEST 42 MG/DL 11/14/2014 Unknown LIPID GROUP 36775 TRIG 177 MG/DL 11/14/2014 Unknown LIPID GROUP 23726 TEST LDL 72 MG/DL 11/14/2014 Unknown LIPID GROUP 41127 CHOL 149 MG/DL 11/14/2014 Unknown LIPID GROUP 39564 RCHOL/HDL 3.55 RATIO 11/14/2014 Unknow n LIPID GROUP 93724 NON-HDL CH 107 MG/DL 11/14/2014 Unknow n GLYCOSYLATED HEMOGLOBIN TEST 37237 A1C HPLC 34004-1 5.5 % 0 11/14/2014 Unknown FREE T4 28236 FREE T4 1.39 NG/DL 11/14/2014 Unknown GFR CALC 3945391 GFR AA 55.0L ML/MIN 11/14/2014 Unknow n GFR CALC 5269614 GFR NON-AA 46.0L ML/MIN 11/14/2014 Unkno wn COMPREHENSIVE METABOLIC 64993 AST 17 U/L 2014 Unknown COMPREHENSIVE METABOLIC 94772 ALT 10 IU/L 2014 Unknown COMPREHENSIVE METABOLIC 38658 BUN 20 MG/DL 2014 Unknown COMPREHENSIVE METABOLIC 34048 ALBUMIN 3.9 GM/DL 2014 Unknown COMPREHENSIVE METABOLIC 53596 CHLORIDE 111 MMOL/L 11/14 Unknown COMPREHENSIVE METABOLIC 48058 BILI TOT 0.4 MG/DL 2014 Unknown COMPREHENSIVE METABOLIC 91561 ALK PHOS 70 U/L 2014 Unknown COMPREHENSIVE METABOLIC 15219 SODIUM 142 MMOL/L 11/14 Unknown COMPREHENSIVE METABOLIC 35098 CREATININE 1.16 MG/DL 11/05 Unknown COMPREHENSIVE METABOLIC 25488 CALCIUM 9.4 MG/DL 2014 Unknown COMPREHENSIVE METABOLIC 46658 POTASSIUM 4.6 MMOL/L 11/14 Unknown COMPREHENSIVE METABOLIC 93159 PROT TOT 6.2 GM/DL 2014 Unknown COMPREHENSIVE METABOLIC 37504 Glucose 90 MG/DL 2014 Unknown COMPREHENSIVE METABOLIC 71528 BICARB 24 MMOL/L 2014 Unknown COMPREHENSIVE METABOLIC 50391 ANION GAP 7 MEQ/L 2014 Unknown THYROID STIMULATING HORMONE 93080 TSH 2.427 uIU/ML 05/10/2014 Unknown LIPID GROUP 78535 HDL TEST 47 MG/DL 05/10/2014 Unknown LIPID GROUP 98083 TRIG 145 MG/DL 05/10/2014 Unknown LIPID GROUP 67285 TEST LDL 73 MG/DL 05/10/2014 Unknown LIPID GROUP 79711 CHOL 149 MG/DL 05/10/2014 Unknown LIPID GROUP 23825 RCHOL/HDL 3.17 RATIO 05/10/2014 Unknow n LIPID GROUP 14294 NON-HDL CH 102 MG/DL 05/10/2014 Unknow n COMPREHENSIVE METABOLIC 19705 AST 17 U/L 2014 Unknown COMPREHENSIVE METABOLIC 21869 ALT 9 IU/L 2014 Unknown COMPREHENSIVE METABOLIC 62041 BUN 19 MG/DL 2014 Unknown COMPREHENSIVE METABOLIC 63795 ALBUMIN 4.3 GM/DL 2014 Unknown COMPREHENSIVE METABOLIC 45897 CHLORIDE 108 MMOL/L 05/10 Unknown COMPREHENSIVE METABOLIC 76207 BILI TOT 0.5 MG/DL 2014 Unknown COMPREHENSIVE METABOLIC 28165 ALK PHOS 68 U/L 2014 Unknown COMPREHENSIVE METABOLIC 24573 SODIUM 140 MMOL/L 05/10 Unknown COMPREHENSIVE METABOLIC 48069 CREATININE 1.08 MG/DL 08/2014 Unknown COMPREHENSIVE METABOLIC 67124 CALCIUM 9.9 MG/DL 2014 Unknown COMPREHENSIVE METABOLIC 47936 POTASSIUM 4.3 MMOL/L 05/10 Unknown COMPREHENSIVE METABOLIC 84602 PROT TOT 7.2 GM/DL 2014 Unknown COMPREHENSIVE METABOLIC 59963 Glucose 94 MG/DL 2014 Unknown COMPREHENSIVE METABOLIC 94925 BICARB 26 MMOL/L 2014 Unknown COMPREHENSIVE METABOLIC 18002 ANION GAP 6 MEQ/L 2014 Unknown GFR CALC 3790036 GFR AA 60.0L ML/MIN 05/10/2014 Unknow n GFR CALC 8203746 GFR NON-AA 49.0L ML/MIN 05/10/2014 Unkno wn GLYCOSYLATED HEMOGLOBIN TEST 25593 A1C HPLC 24363-6 5.6 % 0 05/10/2014 Unknown COMPLETE BLOOD COUNT 3693029 WBC 7.2 10e9/L 05/11/19 15 Unknown COMPLETE BLOOD COUNT 3372828 RBC 4.28 10e12/L 2014 Unknown COMPLETE BLOOD COUNT 5382027 HGB 12.8 g/dL 5 Unknown COMPLETE BLOOD COUNT 0298494 HCT DET 39.3 % 5 Unknown COMPLETE BLOOD COUNT 4851206 MCV 91.8 fL 5 Unknown COMPLETE BLOOD COUNT 5129723 MCH 29.9 pg 5 Unknown COMPLETE BLOOD COUNT 9650848 MCHC 32.6 g/dL 5 Unknown COMPLETE BLOOD COUNT 2259123 PLT 189 10e9/L 05/11/19 15 Unknown COMPLETE BLOOD COUNT 9050278 MPV 11.2 fL 5 Unknown COMPLETE BLOOD COUNT 9690646 CINTHYA % 38.0 % 5 Unknown COMPLETE BLOOD COUNT 5258421 LY % 51.0 % 5 Unknown COMPLETE BLOOD COUNT 3318422 MON % 7.7 % 5 Unknown COMPLETE BLOOD COUNT 8178567 EOS % 2.9 % 5 Unknown COMPLETE BLOOD COUNT 7727901 BASO % 0.4 % 5 Unknown COMPLETE BLOOD COUNT 5475384 RDW 14.0 % 5 Unknown COMPLETE BLOOD COUNT 0923192 ABS CINTHYA 2.74 10e9/L 015 Unknown COMPLETE BLOOD COUNT 5437569 ABS LYMPH 3.67 10e9/L 015 Unknown COMPLETE BLOOD COUNT 6123863 ABS MONO 0.55 10e9/L 015 Unknown COMPLETE BLOOD COUNT 3922514 ABS EOS 0.21 10e9/L 015 Unknown COMPLETE BLOOD COUNT 7222479 ABS BASO 0.03 10e9/L 015 Unknown COMPLETE BLOOD COUNT 3275723 RDW-SD 46.1 fL 5 Unknown FREE T4 69200 FREE T4 1.14 NG/DL 05/10/2014 Unknown GLYCOSYLATED HEMOGLOBIN TEST 15380 A1C HPLC 64921-0 5.2 % 0 03/29/2013 Unknown FREE T4 44181 FREE T4 1.40 NG/DL 03/28/2013 Unknown GFR CALC 5610581 GFR AA >60 ML/MIN 03/28/2013 Unknown GFR CALC 7294972 GFR NON-AA 52.0L ML/MIN 03/28/2013 Unkno wn COMPREHENSIVE METABOLIC 96388 AST 15 U/L 2013 Unknown COMPREHENSIVE METABOLIC 97338 ALT 9 IU/L 2013 Unknown COMPREHENSIVE METABOLIC 02979 BUN 17 MG/DL 2013 Unknown COMPREHENSIVE METABOLIC 46564 ALBUMIN 4.0 GM/DL 2013 Unknown COMPREHENSIVE METABOLIC 38845 CHLORIDE 112 MMOL/L 03/28 Unknown COMPREHENSIVE METABOLIC 90420 BILI TOT 0.5 MG/DL 2013 Unknown COMPREHENSIVE METABOLIC 17364 ALK PHOS 66 U/L 2013 Unknown COMPREHENSIVE METABOLIC 17785 SODIUM 140 MMOL/L 03/28 Unknown COMPREHENSIVE METABOLIC 73963 CREATININE 1.03 MG/DL 03/08 Unknown COMPREHENSIVE METABOLIC 28016 CALCIUM 9.5 MG/DL 2013 Unknown COMPREHENSIVE METABOLIC 09396 POTASSIUM 4.1 MMOL/L 03/28 Unknown COMPREHENSIVE METABOLIC 28390 PROT TOT 6.2 GM/DL 2013 Unknown COMPREHENSIVE METABOLIC 59266 Glucose 102 MG/DL 2013 Unknown COMPREHENSIVE METABOLIC 01901 BICARB 23 MMOL/L 2013 Unknown COMPREHENSIVE METABOLIC 44534 ANION GAP 5 MEQ/L 2013 Unknown THYROID STIMULATING HORMONE 95741 TSH 2.074 uIU/ML 03/28/2013 Unknown VITAMIN B 12 FOLIC ACID 89177|92088 VIT B 12 423 PG/ML 03/08 Unknown VITAMIN B 12 FOLIC ACID 00619|16002 FOLIC ACID 19.7 NG/ML Unknown LIPID GROUP 97599 HDL TEST 40 MG/DL 03/28/2013 Unknown LIPID GROUP 33413 TRIG 145 MG/DL 03/28/2013 Unknown LIPID GROUP 68754 TEST LDL 81 MG/DL 03/28/2013 Unknown LIPID GROUP 33713 CHOL 150 MG/DL 03/28/2013 Unknown LIPID GROUP 34029 RCHOL/HDL 3.75 RATIO 03/28/2013 Unknow n COMPLETE BLOOD COUNT 5728466 WBC 6.0 10e9/L 03/28/19 14 Unknown COMPLETE BLOOD COUNT 6861474 RBC 4.26 10e12/L 2013 Unknown COMPLETE BLOOD COUNT 1987922 HGB 12.7 g/dL 4 Unknown COMPLETE BLOOD COUNT 8686300 HCT DET 38.7 % 4 Unknown COMPLETE BLOOD COUNT 9455762 MCV 90.8 fL 4 Unknown COMPLETE BLOOD COUNT 0760471 MCH 29.8 pg 4 Unknown COMPLETE BLOOD COUNT 4665087 MCHC 32.8 g/dL 4 Unknown COMPLETE BLOOD COUNT 9136949 PLT 178 10e9/L 03/28/19 14 Unknown COMPLETE BLOOD COUNT 4716848 MPV 11.7 fL 4 Unknown COMPLETE BLOOD COUNT 9867721 CINTHYA % 30.5 % 4 Unknown COMPLETE BLOOD COUNT 6603229 LY % 55.4 % 4 Unknown COMPLETE BLOOD COUNT 7382000 MON % 9.0 % 4 Unknown COMPLETE BLOOD COUNT 3761569 EOS % 4.4 % 4 Unknown COMPLETE BLOOD COUNT 6493012 BASO % 0.7 % 4 Unknown COMPLETE BLOOD COUNT 8559705 RDW 13.3 % 4 Unknown COMPLETE BLOOD COUNT 6269521 ABS CINTHYA 1.83 10e9/L 014 Unknown COMPLETE BLOOD COUNT 1009605 ABS LYMPH 3.32 10e9/L 014 Unknown COMPLETE BLOOD COUNT 3397859 ABS MONO 0.54 10e9/L 014 Unknown COMPLETE BLOOD COUNT 7630374 ABS EOS 0.26 10e9/L 014 Unknown COMPLETE BLOOD COUNT 5779094 ABS BASO 0.04 10e9/L 014 Unknown COMPLETE BLOOD COUNT 3213372 RDW-SD 43.2 fL 4 Unknown HEMOGLOBIN A1C (GLYCOSYLATED) 6212302 A1C [facility] 35345-2 5.5 % 02/24/2012 Unknown COMPLETE BLOOD COUNT 3147434 WBC 6.0 10e9/L 02/23/20 12 Unknown COMPLETE BLOOD COUNT 6982307 RBC 4.22 10e12/L 2011 Unknown COMPLETE BLOOD COUNT 0494939 HGB 12.4 g/dL 2 Unknown COMPLETE BLOOD COUNT 2552423 HCT DET 38.2 % 2 Unknown COMPLETE BLOOD COUNT 7615234 MCV 90.5 fL 2 Unknown COMPLETE BLOOD COUNT 0467175 MCH 29.4 pg 2 Unknown COMPLETE BLOOD COUNT 4026430 MCHC 32.5 g/dL 2 Unknown COMPLETE BLOOD COUNT 1196808 PLT 187 10e9/L 02/23/20 12 Unknown COMPLETE BLOOD COUNT 4577063 MPV 11.5 fL 2 Unknown COMPLETE BLOOD COUNT 0086077 CINTHYA % 36.4 % 2 Unknown COMPLETE BLOOD COUNT 8183483 LY % 51.0 % 2 Unknown COMPLETE BLOOD COUNT 6034675 MON % 8.7 % 2 Unknown COMPLETE BLOOD COUNT 2620846 EOS % 3.2 % 2 Unknown COMPLETE BLOOD COUNT 4812247 BASO % 0.7 % 2 Unknown COMPLETE BLOOD COUNT 3746739 RDW 13.7 % 2 Unknown COMPLETE BLOOD COUNT 6832388 ABS CINTHYA 2.18 10e9/L 012 Unknown COMPLETE BLOOD COUNT 7747358 ABS LYMPH 3.06 10e9/L 012 Unknown COMPLETE BLOOD COUNT 8158931 ABS MONO 0.52 10e9/L 012 Unknown COMPLETE BLOOD COUNT 7333767 ABS EOS 0.19 10e9/L 012 Unknown COMPLETE BLOOD COUNT 3407723 ABS BASO 0.04 10e9/L 012 Unknown COMPLETE BLOOD COUNT 2462590 RDW-SD 44.3 fL 2 Unknown LIPID GROUP 67626 HDL TEST 42 MG/DL 02/23/2012 Unknown LIPID GROUP 32686 TRIG 156 MG/DL 02/23/2012 Unknown LIPID GROUP 32632 TEST LDL 80 MG/DL 02/23/2012 Unknown LIPID GROUP 18968 CHOL 153 MG/DL 02/23/2012 Unknown LIPID GROUP 40109 RCHOL/HDL 3.64 RATIO 02/23/2012 Unknow n FREE T4 40470 FREE T4 1.22 NG/DL 02/23/2012 Unknown COMPREHENSIVE METABOLIC 50033 AST 20 U/L 2011 Unknown COMPREHENSIVE METABOLIC 17814 ALT 11 IU/L 2011 Unknown COMPREHENSIVE METABOLIC 82478 BUN 19 MG/DL 2011 Unknown COMPREHENSIVE METABOLIC 64676 ALBUMIN 4.3 GM/DL 2011 Unknown COMPREHENSIVE METABOLIC 08264 CHLORIDE 109 MMOL/L 02/22 Unknown COMPREHENSIVE METABOLIC 56983 BILI TOT 0.6 MG/DL 2011 Unknown COMPREHENSIVE METABOLIC 76593 ALK PHOS 84 U/L 2011 Unknown COMPREHENSIVE METABOLIC 30533 SODIUM 142 MMOL/L 02/22 Unknown COMPREHENSIVE METABOLIC 24072 CREATININE 1.09 MG/DL 02/04 Unknown COMPREHENSIVE METABOLIC 02690 CALCIUM 9.8 MG/DL 2011 Unknown COMPREHENSIVE METABOLIC 02738 POTASSIUM 4.2 MMOL/L 02/22 Unknown COMPREHENSIVE METABOLIC 49371 PROT TOT 6.4 GM/DL 2011 Unknown COMPREHENSIVE METABOLIC 57254 Glucose 89 MG/DL 2011 Unknown COMPREHENSIVE METABOLIC 17135 BICARB 25 MMOL/L 2011 Unknown COMPREHENSIVE METABOLIC 08338 ANION GAP 8 MEQ/L 2011 Unknown GFR CALC 4046115 GFR AA 60.0L ML/MIN 02/23/2012 Unknow n GFR CALC 5181047 GFR NON-AA 49.0L ML/MIN 02/23/2012 Unkno wn THYROID STIMULATING HORMONE 32131 TSH 2.450 uIU/ML 02/23/2012 Unknown COMPREHENSIVE METABOLIC 42298 AST 22 U/L 2011 Unknown COMPREHENSIVE METABOLIC 19078 ALT 14 IU/L 2011 Unknown COMPREHENSIVE METABOLIC 85996 BUN 21 MG/DL 2011 Unknown COMPREHENSIVE METABOLIC 20107 ALBUMIN 4.3 GM/DL 2011 Unknown COMPREHENSIVE METABOLIC 48058 CHLORIDE 106 MMOL/L 04/01 Unknown COMPREHENSIVE METABOLIC 13177 BILI TOT 0.4 MG/DL 2011 Unknown COMPREHENSIVE METABOLIC 98431 ALK PHOS 80 U/L 2011 Unknown COMPREHENSIVE METABOLIC 22288 SODIUM 141 MMOL/L 04/01 Unknown COMPREHENSIVE METABOLIC 02354 CREATININE 1.13 MG/DL 03/08 Unknown COMPREHENSIVE METABOLIC 91403 CALCIUM 9.4 MG/DL 2011 Unknown COMPREHENSIVE METABOLIC 18751 POTASSIUM 4.3 MMOL/L 04/01 Unknown COMPREHENSIVE METABOLIC 83200 PROT TOT 6.7 GM/DL 2011 Unknown COMPREHENSIVE METABOLIC 28766 Glucose 98 MG/DL 2011 Unknown COMPREHENSIVE METABOLIC 12529 BICARB 25 MMOL/L 2011 Unknown COMPREHENSIVE METABOLIC 10817 ANION GAP 10 MEQ/L 2011 Unknown LIPID GROUP 06977 HDL TEST 44 MG/DL 04/01/2011 Unknown LIPID GROUP 92256 TRIG 164 MG/DL 04/01/2011 Unknown LIPID GROUP 93271 TEST LDL 98 MG/DL 04/01/2011 Unknown LIPID GROUP 72359 CHOL 175 MG/DL 04/01/2011 Unknown LIPID GROUP 48378 RCHOL/HDL 3.98 RATIO 04/01/2011 Unknow n COMPLETE BLOOD COUNT 94071 WBC 6.7 10e9/L 04/01/19 12 Unknown COMPLETE BLOOD COUNT 13930 RBC 4.36 10e12/L 2011 Unknown COMPLETE BLOOD COUNT 69784 HGB 12.9 g/dL 2 Unknown COMPLETE BLOOD COUNT 83081 HCT DET 39.4 % 2 Unknown COMPLETE BLOOD COUNT 68560 MCV 90.4 fL 2 Unknown COMPLETE BLOOD COUNT 61367 MCH 29.6 pg 2 Unknown COMPLETE BLOOD COUNT 12919 MCHC 32.7 g/dL 2 Unknown COMPLETE BLOOD COUNT 81290 PLT 184 10e9/L 04/01/19 12 Unknown COMPLETE BLOOD COUNT 29940 MPV 10.9 fL 2 Unknown COMPLETE BLOOD COUNT 16262 CINTHYA % 41.5 % 2 Unknown COMPLETE BLOOD COUNT 94426 LY % 45.7 % 2 Unknown COMPLETE BLOOD COUNT 78573 MON % 9.4 % 2 Unknown COMPLETE BLOOD COUNT 03164 EOS % 3.0 % 2 Unknown COMPLETE BLOOD COUNT 54213 BASO % 0.4 % 2 Unknown COMPLETE BLOOD COUNT 53615 RDW 13.2 % 2 Unknown COMPLETE BLOOD COUNT 12271 ABS CINTHYA 2.78 10e9/L 012 Unknown COMPLETE BLOOD COUNT 08222 ABS LYMPH 3.06 10e9/L 012 Unknown COMPLETE BLOOD COUNT 51842 ABS MONO 0.63 10e9/L 012 Unknown COMPLETE BLOOD COUNT 41963 ABS EOS 0.20 10e9/L 012 Unknown COMPLETE BLOOD COUNT 94420 ABS BASO 0.03 10e9/L 012 Unknown COMPLETE BLOOD COUNT 88347 RDW-SD 42.3 fL 2 Unknown GFR CALC 8235381 GFR AA 57.0L ML/MIN 04/01/2011 Unknow n GFR CALC 4156060 GFR NON-AA 47.0L ML/MIN 04/01/2011 Unkno wn THYROID STIMULATING HORMONE 33690 TSH 2.663 uIU/ML 04/01/2011 Unknown FREE T4 30847 FREE T4 1.15 NG/DL 04/01/2011 Unknown THYROID STIMULATING HORMONE 33397 TSH 1.908 uIU/ML 07/06/2010 Unknown COMPLETE BLOOD COUNT 91454 WBC 6.4 10e9/L 07/07/19 11 Unknown COMPLETE BLOOD COUNT 77386 RBC 3.92 10e12/L 2010 Unknown COMPLETE BLOOD COUNT 88062 HGB 11.8 g/dL 1 Unknown COMPLETE BLOOD COUNT 68097 HCT DET 36.0 % 1 Unknown COMPLETE BLOOD COUNT 21760 MCV 91.8 fL 1 Unknown COMPLETE BLOOD COUNT 56906 MCH 30.1 pg 1 Unknown COMPLETE BLOOD COUNT 70842 MCHC 32.8 g/dL 1 Unknown COMPLETE BLOOD COUNT 41787 PLT 176 10e9/L 07/07/19 11 Unknown COMPLETE BLOOD COUNT 59892 MPV 11.4 fL 1 Unknown COMPLETE BLOOD COUNT 31689 CINTHYA % 50.4 % 1 Unknown COMPLETE BLOOD COUNT 69896 LY % 35.5 % 1 Unknown COMPLETE BLOOD COUNT 01444 MON % 10.2 % 1 Unknown COMPLETE BLOOD COUNT 28269 EOS % 3.3 % 1 Unknown COMPLETE BLOOD COUNT 19945 BASO % 0.6 % 1 Unknown COMPLETE BLOOD COUNT 57810 RDW 13.7 % 1 Unknown COMPLETE BLOOD COUNT 74443 ABS CINTHYA 3.23 10e9/L 011 Unknown COMPLETE BLOOD COUNT 72825 ABS LYMPH 2.27 10e9/L 011 Unknown COMPLETE BLOOD COUNT 38259 ABS MONO 0.65 10e9/L 011 Unknown COMPLETE BLOOD COUNT 40550 ABS EOS 0.21 10e9/L 011 Unknown COMPLETE BLOOD COUNT 00318 ABS BASO 0.04 10e9/L 011 Unknown COMPLETE BLOOD COUNT 72413 RDW-SD 45.3 fL 1 Unknown GFR CALC [id number] GFR AA >60 ML/MIN 07/06/2010 Unknown GFR CALC [id number] GFR NON-AA 53.0L ML/MIN 07/06/2010 Unkno wn FREE T4 54205 FREE T4 1.20 NG/DL 07/06/2010 Unknown COMPREHENSIVE METABOLIC 81574 AST 17 U/L 2010 Unknown COMPREHENSIVE METABOLIC 76331 ALT 9 IU/L 2010 Unknown COMPREHENSIVE METABOLIC 19394 BUN 16 MG/DL 2010 Unknown COMPREHENSIVE METABOLIC 49613 ALBUMIN 4.0 GM/DL 2010 Unknown COMPREHENSIVE METABOLIC 11336 CHLORIDE 108 MMOL/L 07/06 Unknown COMPREHENSIVE METABOLIC 24906 BILI TOT 0.5 MG/DL 2010 Unknown COMPREHENSIVE METABOLIC 00856 ALK PHOS 76 U/L 2010 Unknown COMPREHENSIVE METABOLIC 81703 SODIUM 139 MMOL/L 07/06 Unknown COMPREHENSIVE METABOLIC 78526 CREATININE 1.02 MG/DL 04/2010 Unknown COMPREHENSIVE METABOLIC 84709 CALCIUM 9.2 MG/DL 2010 Unknown COMPREHENSIVE METABOLIC 13903 POTASSIUM 4.5 MMOL/L 07/06 Unknown COMPREHENSIVE METABOLIC 47998 PROT TOT 6.1 GM/DL 2010 Unknown COMPREHENSIVE METABOLIC 46235 Glucose 93 MG/DL 2010 Unknown COMPREHENSIVE METABOLIC 68944 BICARB 26 MMOL/L 2010 Unknown COMPREHENSIVE METABOLIC 47322 ANION GAP 5 MEQ/L 2010 Unknown LIPID GROUP 52481 HDL TEST 46 MG/DL 07/06/2010 Unknown LIPID GROUP 29648 TRIG 102 MG/DL 07/06/2010 Unknown LIPID GROUP 81630 TEST LDL 88 MG/DL 07/06/2010 Unknown LIPID GROUP 40561 CHOL 154 MG/DL 07/06/2010 Unknown LIPID GROUP 90504 RCHOL/HDL 3.35 RATIO 07/06/2010 Unknow n Procedures Procedure Codes Date ROUTINE VENIPUNCTURE CPT-4: 62369 03/13/2019 ASSAY THYROID STIM HORMONE CPT-4: 62619 03/13/2019 COMPLETE CBC W/AUTO DIFF WBC CPT-4: 36742 03/13/2019 COMPREHEN METABOLIC PANEL CPT-4: 63905 03/13/2019 ROUTINE VENIPUNCTURE CPT-4: 04895 01/23/2019 LIPID PANEL CPT-4: [id number] 01/23/2019 FLU VACC PRSV FREE INC ANTIG 65 AND OLDER CPT-4: 62940 12/26/2018 FLU VACC PRSV FREE INC ANTIG 65 AND OLDER CPT-4: 32882 12/26/2018 ADMIN INFLUENZA VIRUS VAC CPT-4: G0008 12/26/2018 COMPREHEN METABOLIC PANEL CPT-4: 09022 12/15/2018 ROUTINE VENIPUNCTURE CPT-4: 48420 12/15/2018 ROUTINE VENIPUNCTURE CPT-4: 93466 08/14/2018 ASSAY THYROID STIM HORMONE CPT-4: 03494 08/14/2018 COMPREHEN METABOLIC PANEL CPT-4: 59386 08/14/2018 COMPLETE CBC W/AUTO DIFF WBC CPT-4: 75332 08/14/2018 URINALYSIS NONAUTO W/O SCOPE CPT-4: 74404 05/10/2018 URINE CULTURE/ COLONY COUNT CPT-4: 46015 05/10/2018 URINE CULTURE/ COLONY COUNT CPT-4: 62099 12/06/2017 ROUTINE VENIPUNCTURE CPT-4: 92477 11/30/2017 ASSAY OF FREE THYROXINE CPT-4: 99208 11/30/2017 ASSAY THYROID STIM HORMONE CPT-4: 17994 11/30/2017 COMPLETE CBC W/AUTO DIFF WBC CPT-4: 72421 11/30/2017 METABOLIC PANEL TOTAL CA CPT-4: 21372 11/30/2017 FLU VACC PRSV FREE INC ANTIG 65 AND OLDER CPT-4: 86852 11/22/2017 ASSAY, GLUCOSE, BLOOD QUANT CPT-4: 39660 11/22/2017 ADMIN INFLUENZA VIRUS VAC CPT-4: G0008 11/22/2017 ROUTINE VENIPUNCTURE CPT-4: 72434 09/27/2017 COMPREHEN METABOLIC PANEL CPT-4: 63290 09/27/2017 COMPLETE CBC W/AUTO DIFF WBC CPT-4: 15195 09/27/2017 A1C HPLC CPT-4: 11013 09/27/2017 ASSAY OF TROPONIN QUANT CPT-4: 01832 09/27/2017 LIPID PANEL CPT-4: 72944 09/27/2017 THER/PROPH/DIAG INJ SC/IM CPT-4: 40306 05/30/2017 TRIAMCINOLONE ACET INJ NOS CPT-4: J3301 05/30/2017 URINALYSIS NONAUTO W/O SCOPE CPT-4: 81805 04/18/2017 URINE CULTURE/ COLONY COUNT CPT-4: 00770 04/18/2017 FLU VACC PRSV FREE INC ANTIG 65 AND OLDER CPT-4: 94242 12/10/2016 ADMIN INFLUENZA VIRUS VAC CPT-4: G0008 12/10/2016 ROUTINE VENIPUNCTURE CPT-4: 31124 11/01/2016 COMPREHEN METABOLIC PANEL CPT-4: 07223 11/01/2016 COMPLETE CBC W/AUTO DIFF WBC CPT-4: 23727 11/01/2016 LIPID PANEL CPT-4: 78519 11/01/2016 A1C HPLC CPT-4: 25164 11/01/2016 ASSAY THYROID STIM HORMONE CPT-4: 72441 11/01/2016 ROUTINE VENIPUNCTURE CPT-4: 07530 05/13/2016 ASSAY THYROID STIM HORMONE CPT-4: 80895 05/13/2016 COMPREHEN METABOLIC PANEL CPT-4: 49908 05/13/2016 COMPLETE CBC W/AUTO DIFF WBC CPT-4: 13506 05/13/2016 A1C HPLC CPT-4: 62442 05/13/2016 FLU VACC PRSV FREE INC ANTIG 65 AND OLDER CPT-4: 27291 12/12/2015 ADMIN INFLUENZA VIRUS VAC CPT-4: G0008 12/12/2015 ROUTINE VENIPUNCTURE CPT-4: 91549 11/25/2015 ASSAY OF FREE THYROXINE CPT-4: 01521 11/25/2015 ASSAY THYROID STIM HORMONE CPT-4: 72170 11/25/2015 COMPREHEN METABOLIC PANEL CPT-4: 68684 11/25/2015 COMPLETE CBC W/AUTO DIFF WBC CPT-4: 87921 11/25/2015 LIPID PANEL CPT-4: 58453 11/25/2015 A1C HPLC CPT-4: 57219 11/25/2015 URINALYSIS NONAUTO W/O SCOPE CPT-4: 36955 05/21/2015 ROUTINE VENIPUNCTURE CPT-4: 80149 02/19/2015 METABOLIC PANEL TOTAL CA CPT-4: 30614 02/19/2015 PRESCRIP TRANSMIT VIA ERX SY CPT-4: G8553 02/19/2015 FLU VACC PRSV FREE INC ANTIG 65 AND OLDER CPT-4: 92860 12/20/2014 ADMIN INFLUENZA VIRUS VAC CPT-4: G0008 12/20/2014 URINALYSIS NONAUTO W/O SCOPE CPT-4: 60070 11/19/2014 URINE CULTURE/ COLONY COUNT CPT-4: 19376 11/19/2014 ROUTINE VENIPUNCTURE CPT-4: 44324 11/14/2014 ASSAY OF FREE THYROXINE CPT-4: 10736 11/14/2014 ASSAY THYROID STIM HORMONE CPT-4: 92632 11/14/2014 COMPREHEN METABOLIC PANEL CPT-4: 73351 11/14/2014 COMPLETE CBC W/AUTO DIFF WBC CPT-4: 75095 11/14/2014 LIPID PANEL CPT-4: 51709 11/14/2014 A1C HPLC CPT-4: 67030 11/14/2014 CERUM REMOVAL CPT-4: 76644 09/27/2014 PRESCRIP TRANSMIT VIA ERX SY CPT-4: G8553 07/11/2014 FLUZONE, 5ML (Medicare) CPT-4: Q2038 12/21/2013 ADMIN INFLUENZA VIRUS VAC CPT-4: G0008 12/21/2013 PRESCRIP TRANSMIT VIA ERX SY CPT-4: G8553 10/17/2013 PRESCRIP TRANSMIT VIA ERX SY CPT-4: G8553 09/24/2013 PRESCRIP TRANSMIT VIA ERX SY CPT-4: G8553 05/31/2013 ROUTINE VENIPUNCTURE CPT-4: 45153 03/28/2013 ASSAY OF FREE THYROXINE CPT-4: 08213 03/28/2013 ASSAY THYROID STIM HORMONE CPT-4: 72242 03/28/2013 COMPREHEN METABOLIC PANEL CPT-4: 95452 03/28/2013 COMPLETE CBC W/AUTO DIFF WBC CPT-4: 22588 03/28/2013 LIPID PANEL CPT-4: 43586 03/28/2013 A1C HPLC CPT-4: 96286 03/28/2013 VITAMIN B 12 FOLIC ACID CPT-4: 76691|09727 03/28/2013 PRESCRIP TRANSMIT VIA ERX SY CPT-4: G8553 03/26/2013 PRESCRIP TRANSMIT VIA ERX SY CPT-4: G8553 12/19/2012 FLUZONE, 5ML (Medicare) CPT-4: Q2038 11/27/2012 ADMIN INFLUENZA VIRUS VAC CPT-4: G0008 11/27/2012 PRESCRIP TRANSMIT VIA ERX SY CPT-4: G8553 10/04/2012 PRESCRIP TRANSMIT VIA ERX SY CPT-4: G8553 07/14/2012 ROUTINE VENIPUNCTURE CPT-4: 25885 02/23/2012 ASSAY OF FREE THYROXINE CPT-4: 34667 02/23/2012 ASSAY THYROID STIM HORMONE CPT-4: 53711 02/23/2012 COMPREHEN METABOLIC PANEL CPT-4: 80948 02/23/2012 COMPLETE CBC W/AUTO DIFF WBC CPT-4: 36236 02/23/2012 LIPID PANEL CPT-4: 11930 02/23/2012 A1C GLYCOSYLATED HEMOGLOBIN TEST CPT-4: 70798 012 CERUM REMOVAL CPT-4: 73703 02/22/2012 PRESCRIP TRANSMIT VIA ERX SY CPT-4: G8553 02/22/2012 PRESCRIP TRANSMIT VIA ERX SY CPT-4: G8553 12/15/2011 FLUZONE, 5ML (Medicare) CPT-4: Q2038 12/02/2011 ADMIN INFLUENZA VIRUS VAC CPT-4: G0008 12/02/2011 ASSAY, GLUCOSE, BLOOD QUANT CPT-4: 38847 09/21/2011 URINALYSIS NONAUTO W/O SCOPE CPT-4: 84817 09/16/2011 URINE CULTURE/ COLONY COUNT CPT-4: 39374 09/16/2011 ROUTINE VENIPUNCTURE CPT-4: 94303 09/15/2011 ASSAY OF FREE THYROXINE CPT-4: 45694 09/15/2011 ASSAY THYROID STIM HORMONE CPT-4: 75392 09/15/2011 COMPREHEN METABOLIC PANEL CPT-4: 28562 09/15/2011 COMPLETE CBC W/AUTO DIFF WBC CPT-4: 44146 09/15/2011 LIPID PANEL CPT-4: 46391 09/15/2011 ASSAY OF INSULIN CPT-4: 71431 09/15/2011 A1C GLYCOSYLATED HEMOGLOBIN TEST CPT-4: 05149 012 DRAIN/INJECT JOINT/BURSA CPT-4: 35520 08/16/2011 METHYLPREDNISOLONE 40 MG INJ CPT-4: J1030 08/16/2011 TRIAMCINOLONE ACET INJ NOS CPT-4: J3301 08/16/2011 PRESCRIP TRANSMIT VIA ERX SY CPT-4: G8553 08/03/2011 PRESCRIP TRANSMIT VIA ERX SY CPT-4: G8553 07/26/2011 METHYLPREDNISOLONE 40 MG INJ CPT-4: J1030 06/28/2011 DRAIN/INJECT JOINT/BURSA CPT-4: 12885 06/28/2011 TRIAMCINOLONE ACET INJ NOS CPT-4: J3301 06/28/2011 PRESCRIP TRANSMIT VIA ERX SY CPT-4: G8553 06/28/2011 ROUTINE VENIPUNCTURE CPT-4: 41593 04/01/2011 ASSAY OF FREE THYROXINE CPT-4: 17290 04/01/2011 ASSAY THYROID STIM HORMONE CPT-4: 38938 04/01/2011 COMPREHEN METABOLIC PANEL CPT-4: 52403 04/01/2011 COMPLETE CBC W/AUTO DIFF WBC CPT-4: 27822 04/01/2011 LIPID PANEL CPT-4: 74812 04/01/2011 PRESCRIP TRANSMIT VIA ERX SY CPT-4: G8553 03/31/2011 CERUM REMOVAL CPT-4: 82400 02/11/2011 PRESCRIP TRANSMIT VIA ERX SY CPT-4: G8553 02/11/2011 FLUZONE, 5ML (Medicare) CPT-4: Q2038 12/09/2010 ADMIN INFLUENZA VIRUS VAC CPT-4: G0008 12/09/2010 PRESCRIP TRANSMIT VIA ERX SY CPT-4: G8553 10/15/2010 URINALYSIS NONAUTO W/O SCOPE CPT-4: 40685 09/29/2010 URINE CULTURE/ COLONY COUNT CPT-4: 09568 09/29/2010 CUR TOBACCO NON-USER CPT-4: G8457 09/29/2010 ROUTINE VENIPUNCTURE CPT-4: 03968 07/06/2010 COMPLETE CBC W/AUTO DIFF WBC CPT-4: 33371 07/06/2010 COMPREHEN METABOLIC PANEL CPT-4: 63991 07/06/2010 LIPID PANEL CPT-4: 41018 07/06/2010 ASSAY THYROID STIM HORMONE CPT-4: 24278 07/06/2010 ASSAY OF FREE THYROXINE CPT-4: 98543 07/06/2010 PRESCRIP TRANSMIT VIA ERX SY CPT-4: G8553 07/02/2010 INJ TRIGGER POINT 1/2 MUSCL CPT-4: 09058 04/06/2010 TRIAMCINOLONE ACET INJ NOS CPT-4: J3301 04/06/2010 METHYLPREDNISOLONE 40 MG INJ CPT-4: J1030 04/06/2010 THER/PROPH/DIAG INJ SC/IM CPT-4: 11165 04/01/2010 KETOROLAC TROMETHAMINE INJ CPT-4: J1885 04/01/2010 PRESCRIP TRANSMIT VIA ERX SY CPT-4: G8553 01/22/2010 FLU VACCINE 3 YRS & > IM UP 64 CPT-4: 18986 0 ADMIN INFLUENZA VIRUS VAC CPT-4: G0008 12/10/2009 URINALYSIS NONAUTO W/O SCOPE CPT-4: 10754 12/02/2009 URINE CULTURE/ COLONY COUNT CPT-4: 17386 12/02/2009 PRESCRIP TRANSMIT VIA ERX SY CPT-4: G8553 12/02/2009 THER/PROPH/DIAG INJ SC/IM CPT-4: 72058 09/10/2009 VITAMIN B12 INJECTION CPT-4: J3420 09/10/2009 THER/PROPH/DIAG INJ SC/IM CPT-4: 20615 08/11/2009 VITAMIN B12 INJECTION CPT-4: J3420 08/11/2009 ROUTINE VENIPUNCTURE CPT-4: 04505 06/10/2009 Vital Signs Date Vital 03/13/2019 Blood [...] 1: 142/60 Code: 8480-6 BMI: 38.2 Code: 18259-5 Heart Rate 1: 48 bpm Height: 5'2" Respiratory Rate: 20 bpm SpO2: 98% Tempera ture: 36.7 (C) / 98.1 (F) Weight: 212 lbs 01/10/2018 Blood Pressure 1: 142/64 Code: 8480-6 BMI: 38.5 Code: 55469-7 Heart Rate 1: 52 bpm Height: 5'2" Respiratory Rate: 22 bpm SpO2: 96% Tempera ture: 36.1 (C) / 96.9 (F) Weight: 214 lbs 12/06/2017 Blood Pressure 1: 124/80 Code: 8480-6 BMI: 38.3 Code: 75333-1 Heart Rate 1: 68 bpm Height: 5'2" Respiratory Rate: 20 bpm Temperature: 36 .3 (C) / 97.4 (F) Weight: 213 lbs 11/22/2017 Blood Pressure 1: 132/78 Code: 8480-6 BMI: 37.6 Code: 91849-5 Heart Rate 1: 68 bpm Height: 5'2" Respiratory Rate: 20 bpm SpO2: 97% Tempera ture: 36.8 (C) / 98.2 (F) Weight: 209 lbs 10/20/2017 Blood Pressure 1: 150/76 Code: 8480-6 BMI: 38.5 Code: 36647-5 Heart Rate 1: 64 bpm Height: 5'2" Respiratory Rate: 20 bpm SpO2: 97% Tempera ture: 36.2 (C) / 97.2 (F) Weight: 214 lbs 09/27/2017 Blood Pressure 1: 122/74 Code: 8480-6 BMI: 38.2 Code: 18792-5 Heart Rate 1: 64 bpm Height: 5'2" Respiratory Rate: 18 bpm SpO2: 96% Tempera ture: 35.8 (C) / 96.4 (F) Weight: 212 lbs 08/16/2017 Blood Pressure 1: 124/78 Code: 8480-6 BMI: 37.8 Code: 61240-0 Heart Rate 1: 76 bpm Height: 5'2" Respiratory Rate: 20 bpm Temperature: 36 .8 (C) / 98.3 (F) Weight: 210 lbs 07/07/2017 Blood Pressure 1: 136/70 Code: 8480-6 BMI: 38.0 Code: 03129-8 Heart Rate 1: 68 bpm Height: 5'2" Respiratory Rate: 20 bpm SpO2: 97% Tempera ture: 36.8 (C) / 98.2 (F) Weight: 211 lbs 05/30/2017 Blood Pressure 1: 140/65 Code: 8480-6 Heart Rate 1: 75 bpm Respiratory Rate: 24 bpm SpO2: 95% Temperature: 37.0 (C) / 98.6 (F) We ight: 211 lbs 04/18/2017 Blood Pressure 1: 154/70 Code: 8480-6 BMI: 37.6 Code: 38685-3 Heart Rate 1: 76 bpm Height: 5'2" Respiratory Rate: 20 bpm SpO2: 98% Tempera ture: 36.9 (C) / 98.5 (F) Weight: 209 lbs 10/25/2016 Blood Pressure 1: 156/70 Code: 8480-6 BMI: 37.1 Code: 87059-0 Heart Rate 1: 72 bpm Height: 5'2" Respiratory Rate: 20 bpm SpO2: 97% Tempera ture: 37.0 (C) / 98.6 (F) Weight: 206 lbs 09/20/2016 Blood Pressure 1: 152/78 Code: 8480-6 BMI: 36.8 Code: 37307-0 Heart Rate 1: 78 bpm Height: 5'2" Respiratory Rate: 20 bpm SpO2: 98% Tempera ture: 36.1 (C) / 97.0 (F) Weight: 204 lbs 05/12/2016 Blood Pressure 1: 142/70 Code: 8480-6 BMI: 36.9 Code: 05319-4 Heart Rate 1: 64 bpm Height: 5'2" [...] 1: 122/64 Code: 8480-6 BMI: 39.1 Code: 46500-3 Heart Rate 1: 76 bpm Height: 5'2" Respiratory Rate: 20 bpm Temperature: 36 .8 (C) / 98.2 (F) Weight: 217 lbs 05/21/2015 Blood Pressure 1: 144/70 Code: 8480-6 BMI: 39.4 Code: 55753-1 Heart Rate 1: 76 bpm Height: 5'2" Respiratory Rate: 20 bpm Temperature: 36 .6 (C) / 97.9 (F) Weight: 219 lbs 02/19/2015 Blood Pressure 1: 152/60 Code: 8480-6 BMI: 39.6 Code: 92183-3 Heart Rate 1: 84 bpm Height: 5'2" Respiratory Rate: 20 bpm Temperature: 37 .0 (C) / 98.6 (F) Weight: 220 lbs 11/13/2014 Blood Pressure 1: 146/76 Code: 8480-6 BMI: 39.8 Code: 57992-5 Heart Rate 1: 88 bpm Height: 5'2" Respiratory Rate: 20 bpm Temperature: 37 .0 (C) / 98.6 (F) Weight: 221 lbs 09/27/2014 Blood Pressure 1: 132/70 Code: 8480-6 BMI: 39.1 Code: 67849-6 Heart Rate 1: 88 bpm Height: 5'2" Respiratory Rate: 20 bpm Temperature: 36 .4 (C) / 97.6 (F) Weight: 217 lbs 07/11/2014 Blood Pressure 1: 132/66 Code: 8480-6 BMI: 39.9 Code: 97958-9 Heart Rate 1: 72 bpm Height: 5'2" Respiratory Rate: 20 bpm Temperature: 36 .9 (C) / 98.4 (F) Weight: 218 lbs 05/23/2014 Blood Pressure 1: 136/80 Code: 8480-6 Heart Rate 1: 76 bpm Respiratory Rate: 20 bpm Temperature: 36.7 (C) / 98.0 (F) Weight: 224 lbs 03/20/2014 Blood Pressure 1: 134/78 Code: 8480-6 BMI: 39.7 Code: 26646-2 Heart Rate 1: 84 bpm Height: 5'2" Respiratory Rate: 20 bpm Temperature: 36 .7 (C) / 98.0 (F) Weight: 217 lbs 10/17/2013 Blood Pressure 1: 146/78 Code: 8480-6 BMI: 39.5 Code: 04460-7 Heart Rate 1: 82 bpm Height: 5'2" Respiratory Rate: 18 bpm Temperature: 35 .6 (C) / 96.1 (F) Weight: 216 lbs 09/24/2013 Blood Pressure 1: 134/70 Code: 8480-6 BMI: 37.9 Code: 42034-9 Heart Rate 1: 80 bpm Height: 5'3" Respiratory Rate: 20 bpm Temperature: 36 .8 (C) / 98.2 (F) Weight: 214 lbs 05/31/2013 Blood Pressure 1: 132/70 Code: 8480-6 BMI: 37.6 Code: 84137-2 Heart Rate 1: 80 bpm Height: 5'3" Respiratory Rate: 20 bpm Temperature: 36 .8 (C) / 98.3 (F) Weight: 212 lbs 03/26/2013 Blood Pressure 1: 116/74 Code: 8480-6 Heart Rate 1: 68 bpm Respiratory Rate: 20 bpm Temperature: 36.2 (C) / 97.1 (F) Weight: 212 lbs 12/19/2012 Blood Pressure 1: 132/82 Code: 8480-6 BMI: 37.4 Code: 27071-6 Heart Rate 1: 76 bpm Height: 5'3" Respiratory Rate: 20 bpm Temperature: 36 .7 (C) / 98.0 (F) Weight: 211 lbs 12/04/2012 Blood Pressure 1: 130/76 Code: 8480-6 He art Rate 1: 78 bpm 11/27/2012 Blood Pressure 1: 140/82 Code: 8480-6 BMI: 36.8 Code: 26142-4 Heart Rate 1: 66 bpm Height: 5'3" Respiratory Rate: 20 bpm Temperature: 36 .1 (C) / 96.9 (F) Weight: 208 lbs 10/04/2012 Blood Pressure 1: 138/80 Code: 8480-6 BMI: 36.4 Code: 83656-4 Heart Rate 1: 72 bpm Height: 5'4" Respiratory Rate: 20 bpm Temperature: 36 .7 (C) / 98.0 (F) Weight: 212 lbs 07/27/2012 Blood Pressure 1: 124/70 Code: 8480-6 BMI: 36.9 Code: 06469-3 Heart Rate 1: 60 bpm Height: 5'4" Temperature: 36.1 (C) / 97.0 (F) Weight: 215 lbs 07/14/2012 Blood Pressure 1: 132/86 Code: 8480-6 BMI: 36.9 Code: 54016-1 Heart Rate 1: 76 bpm Height: 5'4" Respiratory Rate: 20 bpm Temperature: 36 .8 (C) / 98.2 (F) Weight: 215 lbs 06/08/2012 Blood Pressure 1: 134/82 Code: 8480-6 BMI: 36.6 Code: 39657-0 Heart Rate 1: 72 bpm Height: 5'4" Respiratory Rate: 20 bpm Temperature: 36 .3 (C) / 97.4 (F) Weight: 213 lbs 02/22/2012 Blood Pressure 1: 142/80 Code: 8480-6 BMI: 37.1 Code: 82436-7 Heart Rate 1: 76 bpm Height: 5'4" Respiratory Rate: 20 bpm Temperature: 36 .8 (C) / 98.3 (F) Weight: 216 lbs 12/28/2011 Blood Pressure 1: 128/68 Code: 8480-6 BMI: 37.6 Code: 19864-9 Heart Rate 1: 72 bpm Height: 5'4" [...] 1: 128/78 Code: 8480-6 BMI: 38.1 Code: 19172-5 Heart Rate 1: 84 bpm Height: 5'4" Respiratory Rate: 20 bpm Temperature: 36 .9 (C) / 98.4 (F) Weight: 222 lbs 08/16/2011 Blood Pressure 1: 138/80 Code: 8480-6 BMI: 37.9 Code: 78476-2 Heart Rate 1: 74 bpm Height: 5'4" Temperature: 36.1 (C) / 97.0 (F) Weight: 221 lbs 08/03/2011 Blood Pressure 1: 126/78 Code: 8480-6 BMI: 38.4 Code: 84476-1 Heart Rate 1: 72 bpm Height: 5'4" Respiratory Rate: 20 bpm Temperature: 36 .7 (C) / 98.0 (F) Weight: 224 lbs 07/26/2011 Blood Pressure 1: 138/72 Code: 8480-6 BMI: 38.4 Code: 25114-1 Heart Rate 1: 72 bpm Height: 5'4" Respiratory Rate: 20 bpm Temperature: 36 .6 (C) / 97.9 (F) Weight: 224 lbs 06/28/2011 Blood Pressure 1: 122/78 Code: 8480-6 BMI: 38.8 Code: 88354-2 Heart Rate 1: 88 bpm Height: 5'4" Respiratory Rate: 20 bpm Temperature: 36 .6 (C) / 97.8 (F) Weight: 226 lbs 03/31/2011 Blood Pressure 1: 116/60 Code: 8480-6 BMI: 38.1 Code: 08271-7 Heart Rate 1: 92 bpm Height: 5'4" Respiratory Rate: 20 bpm Temperature: 36 .8 (C) / 98.2 (F) Weight: 222 lbs 02/11/2011 Blood Pressure 1: 118/62 Code: 8480-6 BMI: 37.9 Code: 25727-4 Heart Rate 1: 80 bpm Height: 5'4" Temperature: 36.5 (C) / 97.7 (F) Weight: 221 lbs 10/15/2010 Blood Pressure 1: 132/70 Code: 8480-6 Heart Rate 1: 84 bpm Respiratory Rate: 20 bpm Temperature: 36.7 (C) / 98.0 (F) Weight: 221 lbs 09/29/2010 Blood Pressure 1: 114/72 Code: 8480-6 BMI: 37.6 Code: 58843-2 Heart Rate 1: 76 bpm Height: 5'4" [...] 1: 120/70 Code: 8480-6 BMI: 38.3 Code: 29021-4 Heart Rate 1: 88 bpm Height: 5'5" [...] but had more that day. [place] [facility] began to feel very ill and became [...] follow up 05/23/2014 [facility] fwup high blood pressure 03/20/2014 injection(s) 12/21/2013 [...] 2wk fwup gas and bloating 12/15/2011 Dr cMgrath has her mon itoring because was high [...] 06/09/2009 Encounters Encounter Performer Location Codes Date ([id number]) OFFICE/OUTPATIENT VISIT EST Diagnosis: Essential hypertension[ICD10: I10] Diagnosis: Palpitations[ICD10: R00.2] Diagnosis: Stress reaction[ICD10: F43.0] Vikki GUAMAN [place] CPT-4: 95410 03/13/2019 ([id number]) NURSE/OUTPATIENT VISIT EST Diagnosis: Mixed hyperlipidemia[ICD10: E78.2] Vikki GUAMAN [place] CPT-4: 51603 01/23/2019 ([id number]) NURSE/OUTPATIENT VISIT EST Diagnosis: FLU VACCINE[ICD10: Z23] Vikki BALL [place] CPT-4: 56313 12/26/2018 ([id number]) NURSE/OUTPATIENT VISIT EST Diagnosis: Chronic kidney disease, stage 1[ICD10: N18.1] Vikki GUAMAN [place] CPT-4: 94907 12/15/2018 ([id number]) OFFICE/OUTPATIENT VISIT EST Diagnosis: Acute serous otitis media, left ear[ICD10: H65.02] Jennifer GUAMAN [place] CPT-4: 97016 11/07/2018 ([id number]) OFFICE/OUTPATIENT VISIT EST Diagnosis: Essential (primary) hypertension[ICD10: I10] Diagnosis: 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] Diagnosis: Hypoglycemia, unspecified[ICD10: E16.2] Diagnosis: Other fatigue[ICD10: R53.83] Diagnosis: Urinary tract infection, site not specified[ICD10: N39.0] Vikki GUAMAN [place] CPT-4: 01117 08/14/2018 ([id number]) OFFICE/OUTPATIENT VISIT EST Diagnosis: Essential (primary) hypertension[ICD10: I10] Diagnosis: Gastro-esophageal reflux disease without esophagitis[ICD10: K21.9] Diagnosis: Urinary tract infection, site not specified[ICD10: N39.0] Vikki GUAMAN DO [facility] CPT-4: 56462 05/10/2018 ([id number]) OFFICE/OUTPATIENT VISIT EST Diagnosis: Gastro-esophageal reflux disease without esophagitis[ICD10: K21.9] Diagnosis: Epigastric pain[ICD10: R10.13] Vikki GUAMAN DO [facility] CPT-4: 98334 02/14/2018 ([id number]) OFFICE/OUTPATIENT VISIT EST 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] Diagnosis: Essential (primary) hypertension[ICD10: I10] Diagnosis: Generalized anxiety disorder[ICD10: F41.1] Diagnosis: Gastro-esophageal reflux disease without esophagitis[ICD10: K21.9] Vikki GUAMAN DO [facility] CPT-4: 52838 01/10/2018 OFFICE/OUTPATIENT VISIT EST Diagnosis: Gastro-esophageal reflux disease without esophagitis[ICD10: K21.9] Diagnosis: Palpitations[ICD10: R00.2] Diagnosis: Urinary tract infection, site not specified[ICD10: N39.0] Diagnosis: Generalized anxiety disorder[ICD10: F41.1] Vikki GUAMAN [employer] [facility] CPT-4: 39595 12/06/2017 ([id number]) NURSE/OUTPATIENT VISIT EST Diagnosis: 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] Diagnosis: Hypoglycemia, unspecified[ICD10: E16.2] Diagnosis: Dizziness and giddiness[ICD10: R42] Diagnosis: Occlusion and stenosis of bilateral carotid arteries[ICD10: I65.23] Vikki GUAMAN DO [facility] CPT-4: 35359 11/30/2017 OFFICE/OUTPATIENT VISIT EST Diagnosis: Epigastric pain[ICD10: R10.13] Diagnosis: Generalized anxiety disorder[ICD10: F41.1] Diagnosis: FLU VACCINE[ICD10: Z23] Vikki BALL [employer] [facility] CPT-4: 33733 11/22/2017 ([id number]) OFFICE/OUTPATIENT VISIT EST Diagnosis: Essential (primary) hypertension[ICD10: I10] Diagnosis: Hypoglycemia, unspecified[ICD10: E16.2] Diagnosis: Gastro-esophageal reflux disease without esophagitis[ICD10: K21.9] Vikki Ciscobhavya PIKE Alyssa GUAMAN DO [facility] CPT-4: 14814 10/20/2017 ([id number]) OFFICE/OUTPATIENT VISIT EST Diagnosis: Dizziness and giddiness[ICD10: R42] Jennifer GUAMAN DO [facility] CPT-4: 30709 09/27/2017 ([id number]) OFFICE/OUTPATIENT VISIT EST Diagnosis: Cervicalgia[ICD10: M54.2] Diagnosis: Other spondylosis with radiculopathy, cervical region[ICD10: M47.22] Vikki Ciscobhavya PIKE AlejandraSujata GLENIS CHIN [facility] CPT-4: 76539 08/16/2017 ([id number]) OFFICE/OUTPATIENT VISIT EST Diagnosis: Hypoglycemia, unspecified[ICD10: E16.2] Diagnosis: Other spondylosis with radiculopathy, cervical region[ICD10: M47.22] Diagnosis: Vertigo of central origin, 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] Diagnosis: 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] Vikki Ciscofunmilayosakshi CAIOAKUA ALEXNE AlejandraSujata GLENIS [employer] [facility] CPT-4: 37149 07/07/2017 ([id number]) OFFICE/OUTPATIENT VISIT EST Diagnosis: Benign paroxysmal vertigo, bilateral[ICD10: H81.13] Diagnosis: Otalgia, bilateral[ICD10: H92.03] Jennifer GUAMAN [employer] [facility] CPT-4: 49284 05/30/2017 ([id number]) OFFICE/OUTPATIENT VISIT EST Diagnosis: Low back pain[ICD10: M54.5] Diagnosis: Radiculopathy, lumbosacral region[ICD10: M54.17] Diagnosis: Left lower quadrant pain[ICD10: R10.32] Vikki Shah GLENIS [employer] [facility] CPT-4: 62531 04/18/2017 ([id number]) OFFICE/OUTPATIENT VISIT EST Diagnosis: FLU VACCINE[ICD10: Z23] Vikki PIKE AlejandraSujata [facility] CPT-4: 41001 12/10/2016 ([id number]) OFFICE/OUTPATIENT VISIT EST Diagnosis: Mixed hyperlipidemia[ICD10: E78.2] Diagnosis: Essential (primary) hypertension[ICD10: I10] 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] Diagnosis: Impaired fasting glucose[ICD10: R73.01] Diagnosis: Other fatigue[ICD10: R53.83] [facility] CPT-[facility]: 68867 11/01/2016 ([id number]) OFFICE/OUTPATIENT VISIT EST Diagnosis: Pain in thoracic spine[ICD10: M54.6] Diagnosis: Other intervertebral disc degeneration, 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] [facility] CPT[facility]: 56975 10/25/2016 ([id number]) OFFICE/OUTPATIENT VISIT EST Diagnosis: Left lower quadrant pain[ICD10: R10.32] Diagnosis: Low back pain[ICD10: M54.5] Vikki [facility] CPT-4: 62815 09/20/2016 ([id number]) OFFICE/OUTPATIENT VISIT EST Diagnosis: Mixed hyperlipidemia[ICD10: E78.2] Diagnosis: Essential (primary) hypertension[ICD10: I10] Diagnosis: Hypoglycemia, unspecified[ICD10: E16.2] [facility] CPT-[facility]: 76881 05/13/2016 ([id number]) OFFICE/OUTPATIENT VISIT EST Diagnosis: Impaired fasting glucose[ICD10: R73.01] Diagnosis: Mastodynia[ICD10: N64.4] Diagnosis: Mixed hyperlipidemia[ICD10: E78.2] Diagnosis: Essential (primary) hypertension[ICD10: I10] Diagnosis: Other fatigue[ICD10: R53.83] Vik[facility] CPT-4: 97261 05/12/2016 ([id number]) OFFICE/OUTPATIENT VISIT EST Diagnosis: Acute upper respiratory infection, unspecified[ICD10: J06.9] Yue Moya VIKKI [facility] CPT-4: 42482 03/18/2016 ([id number]) OFFICE/OUTPATIENT VISIT EST Diagnosis: Acute mastoiditis without complications, right ear[ICD10: H70.001] Vikki GUAMAN DO [facility] CPT-4: 32236 02/06/2016 ([id number]) OFFICE/OUTPATIENT VISIT EST Diagnosis: FLU VACCINE[ICD10: Z23] Vikki BALL DO [facility] CPT-4: 71550 12/12/2015 ([id number]) OFFICE/OUTPATIENT VISIT EST Diagnosis: Mixed hyperlipidemia[ICD10: E78.2] Diagnosis: Essential (primary) hypertension[ICD10: I10] 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] Diagnosis: Impaired fasting glucose[ICD10: R73.01] Vikki GUAMAN DO [facility] CPT-4: 66857 11/25/2015 ([id number]) OFFICE/OUTPATIENT VISIT EST Diagnosis: Constipation, unspecified[ICD10: K59.00] Vikki GUAMAN DO [facility] CPT-4: 67514 08/26/2015 ([id number]) OFFICE/OUTPATIENT VISIT EST Diagnosis: Essential (primary) hypertension[ICD10: I10] Diagnosis: Mixed hyperlipidemia[ICD10: E78.2] Diagnosis: Chronic kidney disease, stage 1[ICD10: N18.1] Vikki GUAMAN DO [facility] CPT-4: 77944 05/21/2015 ([id number]) OFFICE/OUTPATIENT VISIT EST Diagnosis: Muscle weakness (generalized)[ICD10: M62.81] Diagnosis: Dizziness and giddiness[ICD10: R42] Diagnosis: Essential (primary) hypertension[ICD10: I10] Diagnosis: History of falling[ICD10: Z91.81] Vikki Ciscofunmilayosakshi ROMMELJEANNA GUAMAN DO [facility] CPT-4: 06005 02/19/2015 ([id number]) OFFICE/OUTPATIENT VISIT EST Diagnosis: FLU VACCINE[ICD10: Z23] Vikki CORTEZLINE Alyssa BALL DO [facility] CPT-4: 92354 12/20/2014 ([id number]) OFFICE/OUTPATIENT VISIT EST Diagnosis: Acute renal failure[ICD9: 584.9] Diagnosis: POLYURIA[ICD9: 788.42] Vikki CORTEZLINE Alyssa Rees [facility] CPT-4: 04584 11/19/2014 ([id number]) OFFICE/OUTPATIENT VISIT EST Diagnosis: HYPERLIPIDEMIA NEC/NOS[ICD9: 272.4] Diagnosis: HYPERTENSION[ICD9: 401.9] Diagnosis: CAD[ICD9: 414.00] Diagnosis: Hyperglycemia[ICD9: 790.29] Diagnosis: MALAISE AND FATIGUE[ICD9: 780.79] Vikki Peckfunmilayosakshi KEARNEYROMMEL Deidra [employer] [employer] [facility] CPT-4: 56601 11/14/2014 ([id number]) OFFICE/OUTPATIENT VISIT EST Diagnosis: MALAISE AND FATIGUE[ICD9: 780.79] Diagnosis: HYPOGLYCEMIA[ICD9: 251.2] Diagnosis: Grieving[ICD9: 309.0] Diagnosis: ABDOMINAL PAIN[ICD9: 789.00] Vikki Ciscofunmilayosakshi CORTEZVIKKI AlejandraSujata [facility] CPT-4: 96514 11/13/2014 OFFICE/OUTPATIENT VISIT EST Diagnosis: CERUMEN IMPACTION[ICD9: 380.4] Diagnosis: EUSTACHIAN TUBE DYSFUNCTION[ICD9: 381.81] Jesseniasa Francis VIKKI Alyssa [facility] CPT-4: 79662 09/27/2014 ([id number]) OFFICE/OUTPATIENT VISIT EST Diagnosis: Leg pain[ICD9: 729.5] Diagnosis: SUPERFIC PHLEBITIS-LEG[ICD9: 451.0] Vikki NIÑO AlejandraSujata [facility] [employer] [facility] CPT-4: 83191 07/11/2014 ([id number]) OFFICE/OUTPATIENT VISIT EST Diagnosis: Thoracic back pain[ICD9: 724.1] Diagnosis: SPASM OF MUSCLE[ICD9: 728.85] Vikki Ciscofunmilayosakshi CORTEZVIKKI AlejandraSujata [facility] CPT-4: 32325 05/23/2014 ([id number]) OFFICE/OUTPATIENT VISIT EST Diagnosis: DIZZINESS/VERTIGO[ICD9: 780.4] Diagnosis: Benign positional vertigo[ICD9: 386.11] Diagnosis: HYPERTENSION[ICD9: 401.9] Diagnosis: Suspicious nevus[ICD9: 238.2] Vikki [facility] CPT-4: 55218 03/20/2014 ([id number]) OFFICE/OUTPATIENT VISIT EST Diagnosis: FLU VACCINE[ICD10: Z23] Vikki [facility] CPT-4: 46440 12/21/2013 OFFICE/OUTPATIENT VISIT EST Diagnosis: SINUSITIS, ACUTE[ICD9: 461.9] Diagnosis: EUSTACHIAN TUBE DYSFUNCTION[ICD9: 381.81] Jessenia [facility] CPT-4: 43088 10/17/2013 ([id number]) OFFICE/OUTPATIENT VISIT EST Diagnosis: DIZZINESS/VERTIGO[ICD9: 780.4] Diagnosis: HYPERTENSION[ICD9: 401.9] [facility]: 58282 09/24/2013 ([id number]) OFFICE/OUTPATIENT VISIT EST Diagnosis: HYPERTENSION[ICD9: 401.9] Diagnosis: MALAISE AND FATIGUE[ICD9: 780.79] Diagnosis: SINUSITIS, ACUTE[ICD9: 461.9] Vikki [facility] CPT-4: 97606 05/31/2013 ([id number]) OFFICE/OUTPATIENT VISIT EST Diagnosis: HYPERLIPIDEMIA NEC/NOS[ICD9: 272.4] Diagnosis: HYPERTENSION[ICD9: 401.9] Diagnosis: B12 DEFIC ANEMIA NEC[ICD9: 281.1] Diagnosis: HYPOGLYCEMIA[ICD9: 251.2] Vikki [facility] CPT-4: 03633 03/28/2013 OFFICE/OUTPATIENT VISIT EST Diagnosis: COUGH[ICD9: 786.2] Jessenia [facility] CPT-4: 40555 03/26/2013 OFFICE/OUTPATIENT VISIT EST Diagnosis: COUGH[ICD9: 786.2] Diagnosis: URI, ACUTE[ICD9: 465.9] Jessenia [facility] CPT-4: 61383 12/19/2012 ([id number]) OFFICE/OUTPATIENT VISIT EST Diagnosis: HYPERTENSION[ICD9: 401.9] Diagnosis: CEPHALGIA[ICD9: 784.0] Diagnosis: ANXIETY STATE NOS[ICD9: 300.00] Diagnosis: FLU VACCINE[ICD9: V04.81] Vikki [facility] CPT-4: 38964 11/27/2012 ([id number]) OFFICE/OUTPATIENT VISIT EST Diagnosis: DIZZINESS/VERTIGO[ICD9: 780.4] Diagnosis: SINUSITIS, ACUTE[ICD9: 461.9] Diagnosis: Benign positional vertigo[ICD9: 386.11] Vikki KEELAWRENCE AlejandraSujata [facility] CPT-4: 97639 10/04/2012 OFFICE/OUTPATIENT VISIT EST Diagnosis: OTITIS MEDIA NOS[ICD9: 382.9] Vikki CORTEZLINE AlejandraSujata [facility] CPT-4: 66325 07/27/2012 OFFICE/OUTPATIENT VISIT EST Diagnosis: Perforation of ear drum[ICD9: 384.20] Diagnosis: SINUSITIS, ACUTE[ICD9: 461.9] Vikki CORTEZLINE AlejandraSujata [facility] CPT-4: 63595 07/14/2012 ([id number]) OFFICE/OUTPATIENT VISIT EST Diagnosis: Mastalgia[ICD9: 611.71] Vikki RobertsSujata [facility] CPT-4: 77676 06/08/2012 ([id number]) OFFICE/OUTPATIENT VISIT EST Diagnosis: HYPERLIPIDEMIA NEC/NOS[ICD9: 272.4] Diagnosis: HYPERTENSION[ICD9: 401.9] Diagnosis: DIZZINESS/VERTIGO[ICD9: 780.4] Diagnosis: Hyperglycemia[ICD9: 790.29] Diagnosis: MALAISE AND FATIGUE[ICD9: 780.79] Vikki Ciscobhavya Conde AlejandraSujata [facility] CPT-4: 70624 02/23/2012 ([id number]) OFFICE/OUTPATIENT VISIT EST Diagnosis: EUSTACHIAN TUBE DYSFUNCTION[ICD9: 381.81] Diagnosis: DIZZINESS/VERTIGO[ICD9: 780.4] Diagnosis: ABDOMINAL PAIN[ICD9: 789.00] Diagnosis: GERD[ICD9: 530.81] Diagnosis: CERUMEN IMPACTION[ICD9: 380.4] Vikki [facility] CPT-4: 69432 02/22/2012 OFFICE/OUTPATIENT VISIT EST Diagnosis: ABDOMINAL PAIN[ICD9: 789.00] Diagnosis: DYSPEPSIA[ICD9: 536.8] Vikki [facility] CPT-4: 54161 12/28/2011 ([id number]) OFFICE/OUTPATIENT VISIT EST Diagnosis: ABDOMINAL PAIN[ICD9: 789.00] Diagnosis: DYSPEPSIA[ICD9: 536.8] Diagnosis: IBS[ICD9: 564.1] Vikki [facility] CPT - 4: 21905 12/15/2011 OFFICE/OUTPATIENT VISIT EST Diagnosis: DIZZINESS/VERTIGO[ICD9: 780.4] Diagnosis: HYPOGLYCEMIA[ICD9: 251.2] Vikki [facility] CPT-4: 47632 09/21/2011 ([id number]) OFFICE/OUTPATIENT VISIT EST Diagnosis: URINARY TRACT INFECTION[ICD9: 599.0] Vikki [facility] CPT-4: 18221 09/16/2011 ([id number]) OFFICE/OUTPATIENT VISIT EST Diagnosis: HYPERLIPIDEMIA NEC/NOS[ICD9: 272.4] Diagnosis: HYPERTENSION[ICD9: 401.9] Diagnosis: MALAISE AND FATIGUE[ICD9: 780.79] Diagnosis: DIZZINESS/VERTIGO[ICD9: 780.4] Vikki [facility] CPT-4: 41315 09/15/2011 ([id number]) OFFICE/OUTPATIENT VISIT EST Diagnosis: DIZZINESS/VERTIGO[ICD9: 780.4] Diagnosis: MALAISE AND FATIGUE[ICD9: 780.79] Diagnosis: HYPERTENSION[ICD9: 401.9] Vikki [facility] CPT-4: 98052 09/13/2011 OFFICE/OUTPATIENT VISIT EST Diagnosis: LUMB/LUMBOSAC DISC DEGEN[ICD9: 722.52] Diagnosis: Radiculopathy of leg[ICD9: 724.4] Diagnosis: 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] Diagnosis: SPINAL ENTHESOPATHY[ICD9: 720.1] Vikki [facility] CPT-4: 91542 08/16/2011 ([id number]) OFFICE/OUTPATIENT VISIT EST Diagnosis: PAIN, LOWER BACK[ICD9: 724.2] Diagnosis: SPASM OF MUSCLE[ICD9: 728.85] Diagnosis: SCIATICA[ICD9: 724.3] Diagnosis: Lumbar degenerative disc disease[ICD9: 722.52] Vikki [facility] CPT-4: 34985 08/03/2011 ([id number]) OFFICE/OUTPATIENT VISIT EST Diagnosis: PAIN IN THORACIC SPINE[ICD9: 724.1] Diagnosis: SPASM OF MUSCLE[ICD9: 728.85] Vikki [facility] CPT-4: 98318 07/26/2011 ([id number]) OFFICE/OUTPATIENT VISIT EST Diagnosis: PAIN, LOWER BACK[ICD9: 724.2] Diagnosis: SPASM OF MUSCLE[ICD9: 728.85] Diagnosis: Sacroiliac dysfunction[ICD9: 739.4] Diagnosis: Lumbar degenerative disc disease[ICD9: 722.52] Vikki [facility] CPT-4: 73297 06/28/2011 OFFICE/OUTPATIENT VISIT EST Diagnosis: MALAISE AND FATIGUE[ICD9: 780.79] Diagnosis: HYPOTENSION[ICD9: 458.9] Diagnosis: CAD[ICD9: 414.00] Vikki [facility] CPT-4: 49242 03/31/2011 OFFICE/OUTPATIENT VISIT EST Diagnosis: SINUSITIS, ACUTE[ICD9: 461.9] Diagnosis: PHARYNGITIS, ACUTE[ICD9: 462] Diagnosis: CERUMEN IMPACTION[ICD9: 380.4] Vikki [facility] CPT-4: 24320 02/11/2011 OFFICE/OUTPATIENT VISIT EST Diagnosis: PAIN IN THORACIC SPINE[ICD9: 724.1] Diagnosis: GERD[ICD9: 530.81] Diagnosis: DIZZINESS/VERTIGO[ICD9: 780.4] Vikki [facility] CPT-4: 92270 10/15/2010 OFFICE/OUTPATIENT VISIT EST Vikki [facility] CPT- 4: 61087 09/29/2010 ([id number]) OFFICE/OUTPATIENT VISIT EST Vikki PATHAK SSujata [facility] CPT-4: 07769 07/02/2010 ([id number]) OFFICE/OUTPATIENT VISIT, EST Diagnosis: PAIN, LOWER BACK[ICD9: 724.2] Vikki PIKE SSujata [facility] CPT-4: 24037 04/06/2010 ([id number]) OFFICE/OUTPATIENT VISIT, EST Vikki CRISOSTOMO S[facility] CPT-4: 51641 04/01/2010 ([id number]) OFFICE/OUTPATIENT VISIT, EST Vikki [facility] CPT-4: 69594 01/22/2010 ([id number]) OFFICE/OUTPATIENT VISIT, EST Vikki [facility] CPT-4: 98655 12/02/2009 ([id number]) OFFICE/OUTPATIENT VISIT, EST Vikki [facility] CPT-4: 77972 10/21/2009 ([id number]) OFFICE/OUTPATIENT VISIT, EST Vikki [facility] CPT-4: 34849 09/10/2009 ([id number]) OFFICE/OUTPATIENT VISIT, EST Vikki [facility] CPT-4: 02823 08/11/2009 ([id number]) OFFICE/OUTPATIENT VISIT, EST Vikki [facility] CPT-4: 07356 06/09/2009 Plan of Care Planned Activity Notes Codes Status Date Visit Diagnosis Plan: Essential hypertension Discussio n: Increase metoprolol to 25mg q AM and 50mg po q pM Recheck 1 week ICD-9 : 401.9 ICD-10 : I10 03/13/2019 Visit Diagnosis Plan: Palpitations Discussion: Check C BC, CMP, TSH ICD-9 : 785.1 ICD-10 : R00.2 03/13/2019 Patient Education: metoprolol tartrate- [employer] [facility] [id number] [email or web address]/samplemd/resources/getResource/[email or web address] Completed 03/13/2019 Care Plan: X-RAY EXAM NECK SPINE 4/5VWS LOINC : 92548-0 Pending 03/13/2019 Care Plan: X-RAY EXAM THORAC SPINE4/>VW LOINC : 78196-8 Pending 03/13/2019 Appointment: Vikki Guaman WPtel: [address] [place] [address] LAB 01/23/2019 Appointment: Vikki Guaman WPtel: [address] [place] [address] INJECTION 12/26/2018 Patient Education: INFLUENZA VACCINE [facility] Completed 12/26/2018 Appointment: Vikki Guaman WPtel: [address] [place] [address] LAB 12/15/2018 Visit Diagnosis Plan: Acute serous [...] ICD-10 : H65.02 11/07/2018 Appointment: Jennifer Rosario [address] [place] [address] ACUTE ILLNESS 11/07/2018 Visit Diagnosis Plan: Other fatigue Discussion: Check CBC, TSH ICD-9 : 780.79 ICD-10 : R53.83 08/14/2018 Visit Diagnosis Plan: Hypoglycemia, unspecified Discus james: Monitor BS At least 6 small meals a day each with protein ICD-9 : 251.2 ICD-10 : E16.2 08/14/2018 Visit Diagnosis Plan: Essential (primary) hypertension Discussion: Stable Check CMP ICD-9 : 401.9 ICD-10 : I10 08/14/2018 Visit Diagnosis Plan: Urinary tract infection, site no t specified Discussion: Started an old abx prescription ICD-9 : 599.0 ICD-10 : N39.0 08/14/2018 Appointment: Vikki Guaman WPtel: [address] [place], [place] [phone] [place] FOLLOW UP 08/14/2018 Visit Diagnosis Plan: [...] : I10 05/10/2018 Appointment: Vikki Guaman WPtel: [address] [place], [place] [phone] [place] FOLLOW UP 05/10/2018 Patient Education: metoprolol tartrate- [employer] [facility] [id number] [email or web address]/[email or web address] Completed 05/10/2018 Appointment: Vikki Guaman WPtel: [address] [place], [place] [phone] [place] CANCELED 04/21/2018 Visit Diagnosis Plan: Gastro-esophageal reflux disease without esophagitis Discussion: Continue protonix and carafate Proceed with updated EGD ICD-9 : 530.81 ICD-10 : K21.9 02/14/2018 Visit Diagnosis Plan: Epigastric pain Discussion: [facility] k CT abdomen/pelvis due to ongoing abdominal pain ICD-9 : 789.06 ICD-10 : R10.13 02/14/2018 Appointment: Vikki Guaman WPtel: [address] [place], [place] [phone] [place] FOLLOW UP 02/14/2018 Care Plan: CT PELVIS W/O DYE LOINC : 361 08-9 Pending 02/14/2018 Care Plan: CT ABDOMEN W/O DYE LOINC : 36 103-0 Pending 02/14/2018 Care Plan: Referral Order SNOMED-CT : [id number] Pending 02/14/2018 Visit Diagnosis Plan: 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 Discussion: S/P [...] : F41.1 01/10/2018 Appointment: [facility]aman [facility]el[facility] [phone] [id number] [facility] 01/10/2018 Visit Diagnosis Plan: Gastro-esophageal [...] : N39.0 12/06/2017 Appointment: Vikki Guaman WPtel: [address] [place], [place] [phone] FOLLOW UP 12/06/2017 Patient Education: Patient Medication Summary Completed 12/06/2017 Appointment: Vikki Guaman WPtel: [address] [place], [place] [phone] LAB 11/30/2017 Patient Education: Patient Medication Summary [...] : R10.13 11/22/2017 Appointment: Vikki Guaman WPtel: [address] [place] [address] FOLLOW UP 11/22/2017 Patient Education: Patient Medication [...] : E16.2 10/20/2017 Appointment: Vikki Guaman WPtel: [address] [place] [address] ACUTE ILLNESS 10/20/2017 Patient Education: Patient Medication Summary Completed 10/20/2017 Visit Diagnosis Plan: Dizziness and giddiness Discussi on: blood work to be completed in office including cmp, cbc, troponin to rule out glucose intolerance, infection, dehydration. instructed patient that she needs to see her cfo controller sooner than oct and patient requested we contact dr. brown's office. will have front office make appt. patient has carotid doppler annually. ICD-9 : 780.4 ICD-10 : R42 09/27/2017 Appointment: Jennifer Rosario [address] ACUTE ILLNESS 09/27/2017 Patient Education: Patient Medication Summary Completed 09/27/2017 Visit Diagnosis Plan: Cervicalgia Discussion: Complete course of PT since symptoms improved Continue stretching exercises Notify if symptoms return or worsen ICD-9 : 723.1 ICD-10 : M54.2 08/16/2017 Appointment: Vikki Guaman WPtel: [facility] [place] [facility] [place] [address] FOLLOW UP 08/16/2017 Patient Education: Patient [...] : E16.2 07/07/2017 Appointment: Vikki Guaman WPtel: [facility] [place] [facility] [place] [phone] 07/07/2017 Patient Education: Patient Medication Summary Completed 07/07/2017 Care Plan: MRI NECK SPINE W/O DYE LOINC : 53892-2 Pending 07/07/2017 Visit Diagnosis Plan: Benign paroxysmal [...] ICD-10 : H92.03 05/30/2017 Appointment: Jennifer Rosario [address] [place] [address] ACUTE ILLNESS 05/30/2017 Patient Education: Patient Medication [...] : R10.32 04/18/2017 Appointment: Vikki Guaman WPtel: [address] [place] [address] ACUTE ILLNESS 04/18/2017 Patient Education: Patient Medication Summary Completed 04/18/2017 Appointment: Vikki Guaman WPtel: [address] [place] [address] US INJECTION 12/10/2016 Patient Education: Patient Medication Summary Completed 12/10/2016 Appointment: Vikki Guaman WPtel: [address] [place] [address] [place] LAB 11/01/2016 Patient Education: Patient Medication [...] : M54.6 10/25/2016 Appointment: Vikki Guaman WPtel: [address] [place] [address] FOLLOW UP 10/25/2016 Patient Education: Patient Medication [...] : M54.5 09/20/2016 Appointment: Vikki Guaman WPtel: [address] [place] [address] ACUTE ILLNESS 09/20/2016 Patient Education: Patient Medication Summary Completed 09/20/2016 Appointment: Vikki Guaman WPtel: [address] [place], [place] [phone] [place] LAB 05/13/2016 Patient Education: Patient Medication [...] : R53.83 05/12/2016 Appointment: Vikki Guaman WPtel: [address] [place], [place] [phone] [place] 3/ confirmed `sl ACUTE ILLNESS 05/12/2016 Patient Education: Patient Medication Summary Completed 05/12/2016 Care Plan: MAMMOGRAM SCREENING LOINC : 2 8447-5 Pending 05/12/2016 Visit Diagnosis Plan: Acute upper respiratory infectio n, unspecified Discussion: Exam is reassuring Likely viral illness Supportive care reviewed and encouraged Follow up PRN ICD-9 : 465.9 ICD-10 : J06.9 03/18/2016 Appointment: Yue Moya [address] [place] [address] ACUTE ILLNESS 03/18/2016 Patient Education: Patient Medication Summary Completed 03/18/2016 Visit Plan: Supportive care. Rest, Fluid s, Tylenol/Motrin prn fever or bodyaches. Notify if worsening symptoms. 02/06/2016 Appointment: Vikki Guaman WPtel: [address] [place] [address] ACUTE ILLNESS 02/06/2016 Patient Education: Patient Medication Summary Completed 02/06/2016 Appointment: Vikki Guaman WPtel: [address] [place] [address] INJECTION 12/12/2015 Patient Education: Patient Medication Summary Completed 12/12/2015 Appointment: Vikki Guaman WPtel: [address] [place] [address] LAB 11/25/2015 Patient Education: Patient Medication Summary Completed 11/25/2015 Visit Plan: Add miralax daily Use daily probiotic and metamucil and push fluids Notify if worsens/persists 08/26/2015 Appointment: Vikki Guaman WPtel: [address] [place] [address] 08/25/15 confirmed ~sl ACUTE ILLNESS 08/26/2015 Patient Education: Patient Medication Summary Completed 08/26/2015 Visit Plan: No NSAIDs Kidney function di scussed Discussed hydration Monitor lab every 4months so will check CMP, HbA1C next month 05/21/2015 Appointment: Vikki Guaman WPtel: [address] [place] [address] 05/19 confirmed ~sl ACUTE ILLNESS 05/21/2015 Patient Education: Patient Medication Summary Completed 05/21/2015 Visit Plan: Vestibular exercises Refill flonase Strict low Na diet--discussed that needs to read labels Rx for walker with chair given due to muscle weakness/unsteadiness Has carotids and abdominal aorta and legs checked in March Check Chem 7 02/19/2015 Appointment: Vikki Guaman WPtel: [address] [place] [address] 02/18/15 appt confirmed cn FOLLOW UP 02/19 Patient Education: Patient Medication Summary Completed 02/19/2015 Patient Education: Vertigo Completed 1 04/22/2014 Appointment: Vikki Guaman WPtel: [address] [place] [address] [place] INJECTION 12/20/2014 Patient Education: Patient Medication Summary Completed 12/20/2014 Appointment: Vikki Guaman WPtel: [address] [place] [address] UA 11/19/2014 Patient Education: Patient Medication Summary Completed 11/19/2014 Referral: Edy Cheek WPtel: #1 [facility] [address] Referral Completed 11/18/2014 Appointment: Vikki Guaman WPtel: [address] [place] [address] LAB 11/14/2014 Patient Education: Patient Medication Summary Completed 11/14/2014 Visit Plan: Check CMP, CBC, TSH, Free T4 , B12, Lipids, HbA1C Discussed 6 small meals a day each with protein Would likely benefit from antidepressant Update colonoscopy 11/13/2014 Appointment: Vikki Guaman WPtel: [address] [place], [place] [phone] 11/12/14 confirmed ACUTE ILLNESS 11/13/2014 Patient Education: Patient Medication Summary Completed 11/13/2014 Visit Plan: Cerumen flush with warm wate r and peroxide - good results Resume Nasonex nasal spray daily Recommended Debrox earwax removal drops 09/27/2014 Appointment: Jessenia Francis WPtel: [address] [place], [place] [phone] ACUTE ILLNESS 09/27/2014 Patient Education: Patient Medication Summary Completed 09/27/2014 Visit Plan: Continue aspirin daily Add m eloxicam for 1week Elevate and Ice Call on Tuesday07/11/2014 Appointment: Vikki Guaman WPtel: [address] [place] [address] ACUTE ILLNESS 07/11/2014 Patient Education: Patient Medication Summary Completed 07/11/2014 Visit Plan: Been using baclofen at [facility] and has helped some PT for next 2-4weeks 05/23/2014 Appointment: Vikki Guaman WPtel: [address] [place] [address] Follow Up 05/23/2014 Patient Education: Patient Medication Summary Completed 05/23/2014 Appointment: Vikki Guaman WPtel: [address] [place] [address] LAB 05/10/2014 Appointment: Vikki Guaman WPtel: [address] [place] [address] feeling better, weather - FOLLOW UP 04/07 Referral: Edy Cheke WPtel: 1 [facility] Referral Appointment Requested 04/03/2014 Visit Plan: Continue exercise and curren t meds See surgery for removal of right arm lesion 03/20/2014 Appointment: Vikki Guaman WPtel: [address] [place], [place] [phone] FOLLOW UP 03/20/2014 Patient Education: Patient Medication Summary Completed 03/20/2014 Appointment: Vikki Guaman WPtel: [address] [place], [place] [phone] [place] INJECTION 12/21/2013 Patient Education: Patient Medication Summary Completed 12/21/2013 Appointment: Jessenia Francis WPtel: [address] [place], [place] [phone] ACUTE ILLNESS 10/17/2013 Patient Education: Patient Medication Summary Completed 10/17/2013 Visit Plan: Discussed that likely lumbar etiology for leg weakness Will change amlodopine to low dose dyazide and see if helps legs and inner ear 09/24/2013 Appointment: Vikki Guaman WPtel: [address] [place] [address] FOLLOW UP 09/24/2013 Patient Education: Patient Medication Summary Completed 09/24/2013 Visit Plan: Ceftin and continue claritin /flonase Decrease amlodopine to 2.5mg q HS until fwup with Card due to weakness 05/31/2013 Appointment: Vikki Guaman WPtel: [address] [place] [address] ACUTE ILLNESS 05/31/2013 Patient Education: Patient Medication Summary Completed 05/31/2013 Appointment: Vikki Guaman WPtel: [address] [place] [address] LAB 03/28/2013 Patient Education: Patient Medication Summary Completed 03/28/2013 Appointment: Jessenia Francis WPtel: [address] [place] [address] ACUTE ILLNESS 03/26/2013 Patient Education: Patient Medication Summary Completed 03/26/2013 Visit Plan: Supportive care. Rest, Fluid s, Tylenol prn fever or bodyaches. Notify if worsening symptoms. Ceftin 12/19/2012 Appointment: Jessenia Francis WPtel: [address] [place] [address] ACUTE ILLNESS 12/19/2012 Patient Education: Patient Medication Summary Completed 12/19/2012 Appointment: Vikki Guaman WPtel: [address] [place] [address] BP CHECK 12/04/2012 Patient Education: Patient Medication Summary Completed 12/04/2012 Appointment: Vikki Guaman WPtel: [address] [place], [place] [phone] ER Follow UP 11/27/2012 Patient Education: Patient Medication Summary Completed 11/27/2012 Visit Plan: Restart flonase BID Use mecl izine 25mg q HS Vestibular exercises Claritin 10mg q AM See ENT if doesn't resolve 10/04/2012 Appointment: Vikki Guaman WPtel: [address] [place] [address] ACUTE ILLNESS 10/04/2012 Patient Education: Patient Medication Summary Completed 10/04/2012 Visit Plan: Will continue to observe 07/27/2012 Appointment: Vikki Guaman WPtel: [address] [place] [address] FOLLOW UP 07/27/2012 Patient Education: Patient Medication [...] ear recheck. 07/14/2012 Appointment: Evelyn Santos WPtel: [address] [place] [address] ACUTE ILLNESS 07/14/2012 Patient Education: Patient Medication Summary Completed 07/14/2012 Visit Plan: Decrease caffeine intake Kristin ck Bilateral Mammogram with US of left breast 06/08/2012 Appointment: Vikki Guaman WPtel: [address] [place], [place] [phone] ACUTE ILLNESS 06/08/2012 Patient Education: Patient Medication Summary Completed 06/08/2012 Appointment: Alisia Campbell WPtel: [address] [place], [place] [phone] appt scheduled 04/06 ACUTE ILLNESS 04/10/2012 Appointment: Vikki Guaman WPtel: [address] [place], [place] [phone] [place] LAB 02/23/2012 Patient Education: Patient Medication Summary Completed 02/23/2012 Visit Plan: Continue off carafate and se e how does Continue probiotic Add Vestibular exercises and use meclizine prn Continue Nasonex Check fasting lab including CMP, Lipids, CBC, TSH, Free T4, HbA1C 02/22/2012 Appointment: Vikki Guamantel: [address] [place], [place] [phone] FOLLOW UP 02/22/2012 Patient Education: Patient Medication Summary Completed 02/22/2012 Visit Plan: Continue carafate for 4more weeks at current dose then decrease to BID for 2wks then q HS 12/28/2011 Appointment: Vikki Guaman WPtel: [address] [place], [place] [phone] FOLLOW UP 12/28/2011 Patient Education: Patient Medication Summary Completed 12/28/2011 Visit Plan: Continue omeprazole Add Judi fate 1gm po q AC Add daily probiotic 12/15/2011 Appointment: Vikki Guaman WPtel: [address] [place] [address] ACUTE ILLNESS 12/15/2011 Patient Education: Patient Medication Summary Completed 12/15/2011 Appointment: Vikki Guamantel: [address] [place], [place] [phone] INJECTION 12/02/2011 Patient Education: Patient Medication Summary Completed 12/02/2011 Visit Plan: Diabetic Diet Accuchecks BID alternating times Hold onglyza and Januvia for now and continue diet and exercise and weight loss and moniter BS Discussed hypoglycemia and snack of peanut butter and crackers with juice or milk 09/21/2011 Appointment: Vikki Guamantel: [address] [place], [place] [phone] WORK IN 09/21/2011 Patient Education: Patient Medication Summary Completed 09/21/2011 Appointment: Vikki Guaman WPtel: [address] [place] [address] UA 09/16/2011 Patient Education: Patient Medication Summary Completed 09/16/2011 Appointment: Vikki Guamantel: [address] [place] [address] LAB 09/15/2011 Patient Education: Patient Medication Summary Completed 09/15/2011 Appointment: Vikki Guaman WPtel: [address] [place] [address] ACUTE ILLNESS 09/13/2011 Patient Education: Patient Medication Summary Completed 09/13/2011 Visit Plan: Injection to Right SI joint as above Pt will call in 3 days on pain Has PT starting in 2wks. 08/16/2011 Appointment: Vikki Guaman WPtel: [address] [place] [address] ACUTE ILLNESS 08/16/2011 Patient Education: Patient Medication Summary Completed 08/16/2011 Visit Plan: OMT done Start PT May need u pdated MRI if need to consider epidural Prednisone 08/03/2011 Appointment: Vikki Guaman WPtel: [address] [place] [address] OMT 08/03/2011 Patient Education: Patient Medication Summary Completed 08/03/2011 Visit Plan: Flexeril and Vimovo OMT done Daily stretches 07/26/2011 Appointment: Vikki Guaman WPtel: [address] [place] [address] ACUTE ILLNESS 07/26/2011 Patient Education: Patient Medication Summary Completed 07/26/2011 Visit Plan: OMT done Daily stretches Roque st heat or biofreeze Right SI joint injection Call in 1week Vimovo BID 06/28/2011 Appointment: Vikki Guaman WPtel: [address] [place] [address] ACUTE ILLNESS 06/28/2011 Patient Education: Patient Medication Summary Completed 06/28/2011 Appointment: Vikki Guaman WPtel: [address] [place], [place] [id number] [place] LAB 04/01/2011 Patient Education: Patient Medication Summary Completed 04/01/2011 Visit Plan: Decrease amlodopine to 1.25m g daily Schedule with Cardiology Fasting lab in AM 03/31/2011 Appointment: Vikki Guamantel: [address] [place], [place] [phone] ACUTE ILLNESS 03/31/2011 Patient Education: Patient Medication Summary Completed 03/31/2011 Visit Plan: Saline nasal flushes prn. Ty lenol/Motrin prn headache. Notify if persists/symptoms worsening. Cerumen removal from ears as above 02/11/2011 Appointment: Vikki Guaman WPtel: [address] [place], [place] [phone] ACUTE ILLNESS 02/11/2011 Patient Education: Patient Medication Summary Completed 02/11/2011 Appointment: Vikki Guaman WPtel: [address] [place], [place] [phone] US INJECTION 12/09/2010 Patient Education: Patient Medication Summary Completed 12/09/2010 Visit Plan: Continue vimovo for 1more we ek Increase Omeprazole to BID for 1mo then resume QD if stomach improved Vestibular exercises with meclizine q HS for next week 10/15/2010 Appointment: Vikki Guaman WPtel: [address] [place], [place] [phone] FOLLOW UP 10/15/2010 Patient Education: Patient Medication Summary Completed 10/15/2010 Appointment: Vikki Guaman WPtel: [address] [place], [place] [phone] ACUTE ILLNESS 09/29/2010 Patient Education: Patient Medication Summary Completed 09/29/2010 Appointment: Vikki Guaman WPtel: [address] [place], [place] [phone] [place] LAB 07/06/2010 Patient Education: Patient Medication Summary Completed 07/06/2010 Visit Plan: Saline nasal flushes prn. Ty lenol/Motrin prn headache. Notify if persists/symptoms worsening. Add Veramyst Increase Omeprazole to 20mg po BID 07/02/2010 Appointment: Vikki Guaman WPtel: [address] [place] [address] ACUTE ILLNESS 07/02/2010 Patient Education: Patient Medication Summary Completed 07/02/2010 Appointment: Vikki Guaman WPtel: [address] [place] [address] FOLLOW UP 04/06/2010 Patient Education: Patient Medication Summary Completed 04/06/2010 Appointment: Vikki Guaman WPtel: [address] [place] [address] ACUTE ILLNESS 04/01/2010 Patient Education: Patient Medication Summary Completed 04/01/2010 Visit Plan: Nasocourt sample given. Pt. will notify if symptoms are worse on Tuesday. 01/22/2010 Appointment: Alisia Campbell WPtel: [address] [place] [address] ACUTE ILLNESS 01/22/2010 Patient Education: Patient Medication Summary Completed 01/22/2010 Appointment: Vikki Guaman WPtel: [address] [place] [address] US INJECTION 12/10/2009 Patient Education: Patient Medication Summary Completed 12/10/2009 Appointment: Vikki Guaman WPtel: [address] [place] [address] FOLLOW UP 12/02/2009 Patient Education: Patient Medication Summary Completed 12/02/2009 Patient Education: Lexapro Completed 0 12/02/2009 Visit Plan: May proceed with hiatal ryan ia repair per Card. so will contact Dr. Marsical's office to proceed with surgery Trial of Lexapro 5mg QD plus use xanax prn 10/21/2009 Appointment: Vikki Guaman WPtel: [address] [place], [place] [phone] FOLLOW UP 10/21/2009 Patient Education: Patient Medication Summary Completed 10/21/2009 Visit Plan: B12 given Cont oral B12 and iron Fwup 1mo for B12 Proceed with hiatal hernia repair once card clearance 09/10/2009 Appointment: Vikki Guaman WPtel: [address] [place], [place] [phone] FOLLOW UP 09/10/2009 Patient Education: Patient Medication Summary Completed 09/10/2009 Appointment: Vikki Guaman WPtel: [address] [place], [place] [phone] FOLLOW UP 08/11/2009 Patient Education: Patient Medication Summary Completed 08/11/2009 Appointment: Vikki Guaman WPtel: [address] [place], [place] [phone] [place] LAB 06/10/2009 Patient Education: Patient Medication Summary Completed 06/10/2009 Visit Plan: Check fasting lab in AM--CMP ,Lipids, CBC, Vit D, TSH,FreeT4, B12 06/09/2009 Appointment: Vikki Guaman WPtel: [address] [place], [place] [phone] FOLLOW UP 06/09/2009 Patient Education: Patient Medication Summary Completed 06/09/2009 Referral: Edy Cheek WPtel: #1 [facility]66[facility] Referral Appointment Requested Referral: Edy Cheek WPtel: [address] Referral Initiated Instructions Comment . Supportive [...]
--- OUTSIDE RECORDS SUMMARY | 2019-04-25 20:33 | XMS REPORT | CCD ---
Author Author Evelyne Guaman D.O. 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 Name Role Phone Vikki Guaman D.O., PP Unavailable CCM Unavailable Summary Purpose Interface Exchange Insurance Providers Payer name Policy type / Coverage type Covered constitution party ID Effective Begin Date Effective End Date WPS MEDICARE PART B [place] Medicare Part B [id number] 2017 Unknown Aetna [facility] Medicare Part B [id number] Unknown Family history Father Diagnosis Age At Onset Heart disease Unknown Mother Diagnosis Age At Onset Heart disease Unknown Cancer Unknown Social History Social History Element Codes Description Effective Dates Tobacco history SNOMED CT: 268568709 Never smoker 09/29/2010 Marital status Unknown Single [...] R10.13 11/22/2017 Active 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: [...] Relief 50 mcg/actuation nasal spray,suspensi on RxNorm: 9590443 2 [place] Nasal every night at bedtime 03/13/2019 03/13/2019 Inactive simvastatin 40 mg tablet RxNorm: 441772 1 Tablet(s) PO QD 01/22/2019 04/21/2019 Active omeprazole 40 mg capsule,delayed release RxNorm: 412730 1 Capsu le(s) Oral QD 01/10/2019 07/08/2019 Active Xanax 0.25 mg tablet RxNorm: 831701 TAKE 1 TABLET BY MOUTH TWIC E DAILY 01/02/2019 No Stop Date Active omeprazole 40 mg capsule,delayed release RxNorm: 063410 1 Capsu le(s) PO QD 12/11/2018 01/09/2019 Inactive metoprolol tartrate 25 mg tablet RxNorm: 769659 1 Tablet(s) PO BID 11/20/2018 05/18/2019 Active omeprazole 40 mg capsule,delayed release RxNorm: 898403 1 Capsu le(s) PO QD 11/13/2018 12/10/2018 Inactive Flonase Allergy Relief 50 mcg/actuation nasal spray,suspensi on RxNorm: 1337525 2 [place] NASAL QHS 11/07/2018 03/12/2019 Inactive simvastatin 40 mg tablet RxNorm: 024892 1 Tablet(s) PO QD 10/23/2018 01/20/2019 Inactive simvastatin 40 mg tablet RxNorm: 938364 1 Tablet(s) PO QD 07/24/2018 10/21/2018 Inactive omeprazole 40 mg capsule,delayed release RxNorm: 524394 1 Capsu le(s) PO QD 07/13/2018 11/09/2018 Inactive simvastatin 40 mg tablet RxNorm: 420483 1 Tablet(s) PO QD 06/13/2018 07/12/2018 Inactive omeprazole 40 mg capsule,delayed release RxNorm: 791685 1 Capsu le(s) PO QD 06/13/2018 07/12/2018 Inactive Bactrim DS 800 mg-160 mg tablet RxNorm: 463077 1 Tablet(s) PO BID 0 05/12/2018 05/18/2018 Inactive Bactrim DS 800 mg-160 mg tablet RxNorm: 626558 1 Tablet(s) PO BID 0 05/12/2018 05/11/2018 Inactive Macrobid 100 mg capsule RxNorm: 813261 1 Capsule(s) PO BID 05/11/19 19 05/16/2018 Inactive metoprolol tartrate 25 mg tablet RxNorm: 517486 1 Tablet(s) PO BID 05/10/2018 11/05/2018 Inactive Xanax 0.25 mg tablet RxNorm: 282159 TAKE 1 TABLET BY MOUTH TWIC E DAILY 02/16/2018 01/01/2019 Inactive Xanax 0.25 mg tablet RxNorm: 259007 1 Tablet(s) PO BID 02/14/2018 Inactive Protonix 40 mg tablet,delayed release RxNorm: 940132 1 Tablet(s) PO BID for stomach--replaces omeprazole 01/10/2018 05/09/2018 Inactive Carafate 1 gram tablet RxNorm: 659140 1 Tablet(s) PO AC & HS 201705/09/2018 Inactive Xanax 0.25 mg tablet RxNorm: 862804 1 Tablet(s) PO BID 01/03/201812/2017 Inactive Bactrim DS 800 mg-160 mg tablet RxNorm: 076992 1 Tablet(s) PO BID 1 12/12/2017 Inactive Bactrim DS 800 mg-160 mg tablet RxNorm: 551374 1 Tablet(s) PO BID 1 12/07/2017 Inactive Carafate 1 gram tablet RxNorm: 344975 1 Tablet(s) PO AC & HS 201712/21/2017 Inactive Protonix 40 mg tablet,delayed release RxNorm: 847807 1 Tablet(s) PO BID for stomach--replaces omeprazole 11/22/2017 01/09/2018 Inactive Protonix 40 mg tablet,delayed release RxNorm: 205242 1 Tablet(s) PO BID for stomach--replaces omeprazole 10/20/2017 11/21/2017 Inactive fluticasone 50 mcg/actuation nasal spray,suspension RxNorm: 7589516 2 [place] NASAL QD to each nostril 07/07/2017 08/13/2018 Inactive Nasonex 50 mcg/actuation [place] RxNorm: 0261286 2 [place] NASAL 201707/07/2017 Inactive omeprazole 40 mg capsule,delayed release RxNorm: 041738 1 Capsu le(s) PO QD 04/18/2017 10/19/2017 Inactive simvastatin 40 mg tablet RxNorm: 056993 1 Tablet(s) PO QD TAKE 1 TABLET EVERY DAY 04/18/2017 04/12/2018 Inactive metoprolol tartrate 25 mg tablet RxNorm: 342687 1/2 Tablet(s) PO QD 04/18/2017 01/09/2018 Inactive simvastatin 40 mg tablet RxNorm: 401045 Tablet(s) TAKE 1 TABLET EVERY DAY 10/27/2016 04/17/2017 Inactive metoprolol tartrate 25 mg tablet RxNorm: 712346 1/2 Tablet(s) PO QD 09/20/2016 03/18/2017 Inactive Flonase 50 mcg/actuation nasal spray,suspension RxNorm: 1797 933 2 [place] NASAL BID 09/20/2016 04/17/2017 Inactive omeprazole 40 mg capsule,delayed release RxNorm: 523039 1 Capsu le(s) PO QD 09/08/2016 04/17/2017 Inactive metoprolol tartrate 25 mg tablet RxNorm: 409981 1/2 Tablet(s) PO QD 06/14/2016 09/19/2016 Inactive ciprofloxacin 0.2 % ear drops in a dropperette RxNorm: 40235 6 4 Drop(s) OTIC TID for 1 week 02/06/2016 05/11/2016 Inactive cefdinir 300 mg capsule RxNorm: 065766 2 Capsule(s) PO QD 02/06/2016 02/15/2016 Inactive omeprazole 40 mg capsule,delayed release RxNorm: 059490 TAKE 1 CAPSULE EVERY DAY 11/06/2015 09/08/2016 Inactive simvastatin 40 mg tablet RxNorm: 288510 TAKE 1 TABLET EVERY DAY 05/201510/27/2016 Inactive Flonase 50 mcg/actuation nasal spray,suspension RxNorm: 1797 933 2 [place] NASAL BID 02/19/2015 09/19/2016 Inactive cefuroxime axetil 250 mg tablet RxNorm: 579070 1 Tablet(s) PO BID 0 11/21/2014 11/20/2014 Inactive cefuroxime axetil 250 mg tablet RxNorm: 739489 1 Tablet(s) PO BID 0 11/21/2014 11/27/2014 Inactive omeprazole 40 mg capsule,delayed release RxNorm: 237886 1 Capsu le(s) PO QD 10/09/2014 01/05/2015 Inactive meloxicam 7.5 mg tablet RxNorm: 266503 1 Tablet(s) PO QD 07/11/2014 0 08/09/2014 Inactive loratadine 10 mg tablet RxNorm: 959174 1 Tablet(s) PO QAM for a llergies 10/17/2013 08/13/2018 Inactive Flonase 50 mcg/actuation nasal spray,suspension RxNorm: 8963 23 2 [place] NASAL BID 10/17/2013 02/18/2015 Inactive prednisone 20 mg tablet RxNorm: 865985 2 Tablet(s) PO BID 10/17/2013 10/21/2013 Inactive Dyazide 37.5 mg-25 mg capsule RxNorm: 811922 1 Capsule(s) PO QAM 10/16/2013 Inactive Ceftin 500 mg tablet RxNorm: 534058 1 Tablet(s) PO BID 05/31/201307/2013 Inactive Ceftin 500 mg tablet RxNorm: 217746 1 Tablet(s) PO BID 03/26/2013 Inactive simvastatin 40 mg tablet RxNorm: 504619 Tablet(s) PO TA KE ONE TABLET BY MOUTH EVERY DAY 03/26/2013 10/07/2015 Inactive metoprolol tartrate 25 mg tablet RxNorm: 520186 Tablet( s) PO TAKE ONE-HALF TABLET BY MOUTH EVERY DAY 03/26/2013 11/12/2014 Inactive Ceftin 500 mg tablet RxNorm: 514948 1 Tablet(s) PO BID 12/19/2012 Inactive loratadine 10 mg tablet RxNorm: 155816 1 Tablet(s) PO QAM for a llergies 10/04/2012 12/02/2012 Inactive omeprazole 20 mg capsule,delayed release RxNorm: 828089 Capsule(s) PO TAKE ONE CAPSULE BY MOUTH TWICE DAILY 08/09/2012 10/08/2014 Inactive omeprazole 20 mg capsule,delayed release RxNorm: 539097 1 Capsu le(s) PO BID 08/09/2012 05/09/2018 Inactive Augmentin 875 mg-125 mg tablet RxNorm: 736321 1 Tablet(s) PO Q12H 0 07/14/2012 07/23/2012 Inactive Floxin Otic Drops 1 bottle Drops RxNorm: 5 Drop(s) OTIC BID 07/20/2012 Inactive metoprolol tartrate 25 mg tablet RxNorm: 787836 Tablet( s) PO TAKE ONE-HALF TABLET BY MOUTH EVERY DAY 04/11/2012 03/25/2013 Inactive simvastatin 40 mg tablet RxNorm: 390856 Tablet(s) PO TA KE ONE TABLET BY MOUTH EVERY DAY 04/11/2012 03/25/2013 Inactive lancets RxNorm: Misc Miscellaneous USE ONE TO CH JEFFERY GLUCOSE EVERY DAY 04/04/2012 05/09/2018 Inactive Carafate 1 gram tablet RxNorm: 101521 1 Tablet(s) PO AC & HS 201111/12/2014 Inactive Flagyl 500 mg tablet RxNorm: 967894 1 Tablet(s) PO TID 12/15/2011 Inactive Carafate 1 gram tablet RxNorm: 678073 1 Tablet(s) PO AC & HS 201102/12/2012 Inactive One Touch Test strips RxNorm: Miscellaneous QD 09/21/2011 05/09/2018 Inactive one touch ultra mini test strips Protonix 40 mg Tab RxNorm: 380447 1 Tablet(s) PO QD 09/13/20112011 Inactive Protonix 40 mg Tab RxNorm: 912747 1 Tablet(s) PO QD 09/13/20112011 Inactive prednisone 20 mg Tab RxNorm: 009601 1 Tablet(s) PO BID 08/03/201106/2011 Inactive Flexeril 5 mg Tab RxNorm: 288654 1 Tablet(s) PO QHS for spasm 07/2508/24/2011 Inactive Flexeril 5 mg Tab RxNorm: 576741 1 Tablet(s) PO QHS for spasm 06/2707/25/2011 Inactive amlodipine 2.5 mg Tab RxNorm: 191095 1/2 Tablet(s) PO QD replac es 5mg dose 03/31/2011 06/27/2011 Inactive simvastatin 40 mg tablet RxNorm: 390841 1 Tablet(s) PO QD 03/31/2011 03/24/2012 Inactive metoprolol tartrate 25 mg tablet RxNorm: 169305 1/2 Tablet(s) PO QD 03/31/2011 03/24/2012 Inactive omeprazole 20 mg capsule,delayed release RxNorm: 093644 1 Capsu le(s) PO BID 03/31/2011 09/12/2011 Inactive cefdinir 300 mg Cap RxNorm: 639888 2 Capsule(s) PO QD 02/11/201102/04 Inactive simvastatin 40 mg Tab RxNorm: 849710 1 Tablet(s) PO QD 02/01/2011 Inactive metoprolol tartrate 25 mg Tab RxNorm: 770765 1/2 Tablet(s) PO QD 03/30/2011 Inactive metoprolol tartrate 25 mg Tab RxNorm: 998755 1/2 Tablet(s) PO QD 12/28/2010 Inactive meclizine 25 mg Tab RxNorm: 0997945 1 Tablet(s) PO QHS 10/15/201011/2010 Inactive for dizziness Ceftin 500 mg Tab RxNorm: 497208 1 Tablet(s) PO BID 07/02/20102010 Inactive omeprazole 20 mg Cap, Delayed Release RxNorm: 943724 1 Capsule( s) PO BID 07/02/2010 12/28/2010 Inactive simvastatin 40 mg Tab RxNorm: 326757 1 Tablet(s) PO QD 06/30/201007/2018 Inactive simvastatin 40 mg Tab RxNorm: 136465 1 Tablet(s) PO QD 06/30/2010 Inactive simvastatin 40 mg Tab RxNorm: 082400 1 Tablet(s) PO QD 02/25/2010 Inactive Tessalon Perles 100 mg Cap RxNorm: 942000 1 Capsule(s) PO Q6-8H 01/28/2010 Inactive cefdinir 300 mg Cap RxNorm: 305311 1 Capsule(s) PO BID 01/22/2010 Inactive Lexapro 10 mg Tab RxNorm: 772422 1 Tablet(s) PO QD 12/02/2009 010 Inactive Cipro 250 mg Tab RxNorm: 718811 1 Tablet(s) PO BID 12/02/2009 010 Inactive Wellbutrin XL 150 mg 24 hr Tab RxNorm: 192518 1 Tablet(s) PO QAM 08/07/2009 Inactive Fish Oil 1,000 mg Cap RxNorm: 1 Capsule(s) PO QD No Start Date Active Tylenol Extra Strength 500 mg tablet RxNorm: 236088 1/2 Tablet( s) PO as needed No Start Date Active nitroglycerin 0.4 mg sublingual tablet RxNorm: 281339 Tablet(s) SL as needed No Start Date Active Calcium with Vitamin D 600 mg (1,500 mg)-400 unit tablet RxN orm: 193737 1 Tablet(s) PO QD No Start Date Active Multivitamin & Mineral Formula Tab RxNorm: 1 Tablet(s) PO QD No St art Date Active vitamin B complex capsule RxNorm: 1 Capsule(s) PO QD No Start Date Active Aspirin 81 mg Tab RxNorm: 138733 1 Tablet(s) PO QD No Start Date Active isosorbide mononitrate ER 30 mg tablet,extended release 24 h r RxNorm: 005211 1 Tablet(s) PO QHS No Start Date Active Vitamin D 1,000 unit Cap RxNorm: 685150 1 Capsule(s) PO QD No Start D ate Active Co Q-10 oral RxNorm: 98450 oral No Start Date Active metoprolol tartrate 25 mg Tab RxNorm: 022476 1/2 Tablet(s) PO QD No Start Date 12/27/2010 Inactive Nasonex 50 mcg/actuation [place] RxNorm: 6286897 2 [place] NASAL No Sta rt Date 07/06/2017 Inactive Vitamin B12 1000mcg Tablet RxNorm: 1 Tablet(s) PO QD No Start Date 11/12/2014 Inactive amlodipine 5 mg Tab RxNorm: 279040 1 Tablet(s) PO QD No Start Date Inactive simvastatin 40 mg tablet RxNorm: 982047 1 Tablet(s) PO QD No Start Date 06/12/2018 Inactive omeprazole 20 mg capsule,delayed release RxNorm: 501164 1 Capsu le(s) PO BID No Start Date 08/08/2012 Inactive omeprazole 40 mg capsule,delayed release RxNorm: 218283 1 Capsu le(s) PO QD No Start Date 06/12/2018 Inactive Nexium 40 mg Cap RxNorm: 645805 1 Capsule(s) PO QD No Start Date 01/05 Inactive Stool Softener 100 mg Tab RxNorm: 2952997 2 Tablet(s) PO BID No Sta rt Date 03/30/2011 Inactive Calcium with Vitamin D 600 mg (1,500 mg)-400 unit Tab RxNorm : 531855 1 Tablet(s) PO QD No Start Date 11/12/2014 Inactive iron 325 mg (65 mg iron) Tab RxNorm: 854038 1 Tablet(s) PO QD No St art Date 11/12/2014 Inactive Flonase 50 mcg/actuation Nasal [place] RxNorm: 434944 2 [place] DEMOND AL BID No Start Date 10/16/2013 Inactive fluticasone 50 mcg/actuation nasal spray,suspension RxNorm: 4802633 2 [place] NASAL QD to each nostril No Start Date 07/06/2017 Inactive Nasonex 50 mcg/actuation [place] RxNorm: 0553359 2 [place] NASAL QD No Start Date 07/06/2017 Inactive hydralazine 50 mg tablet RxNorm: 221414 1 Tablet(s) PO as needed for BP over 160/90 No Start Date 11/21/2017 Inactive Vimovo 500 mg-20 mg 12 hr Tab RxNorm: 553669 1 Tablet(s) PO BID No Start Date 02/10/2011 Inactive Tylenol PM 25 mg-500 mg/15 mL Oral Soln RxNorm: 8604107 1 PO QPM No Start Date 11/12/2014 Inactive Iron (Ferrous Sulfate) Oral RxNorm: Oral No Start Date 03/30/19 12 Inactive Reglan 10 mg Tab RxNorm: 817608 1 Tablet(s) PO TID before meals No Start Date 02/10/2011 Inactive Xanax 1 mg Tab RxNorm: 713052 1/2 Tablet(s) PO QD No Start Date 11/21 Inactive amlodipine 10 mg tablet RxNorm: 665698 1 Tablet(s) PO QD No Start D ate 09/23/2013 Inactive Iron (dried) Oral RxNorm: Oral No Start Date 03/30/2011 Inactiv e metoprolol tartrate 50 mg tablet RxNorm: 444240 1 Tablet(s) PO BID No Start Date 02/13/2018 Inactive Xanax 0.25 mg tablet RxNorm: 839160 1 Tablet(s) PO BID No Start Date 01/02/2018 Inactive lancets RxNorm: Miscellaneous check blood sugar at least once daily No Start Date 04/03/2012 Inactive simvastatin 40 mg Tab RxNorm: 757195 1 Tablet(s) PO QD No Start Date 02/24/2010 Inactive isosorbide mononitrate ER 30 mg tablet,extended release 24 h r RxNorm: 316890 1 Tablet(s) PO QHS No Start Date 08/13/2018 Inactive amlodipine 2.5 mg tablet RxNorm: 396495 1 Tablet(s) PO QD No Start Date 09/23/2013 Inactive sucralfate 1 gram tablet RxNorm: 104118 1 Tablet(s) PO QID No Start Date 05/09/2018 Inactive Fish Oil Oral RxNorm: Oral No Start Date 03/31/2011 Inactive Multiple Vitamin Oral RxNorm: Oral No Start Date 03/31/2011 Franny ctive metoprolol tartrate 25 mg tablet RxNorm: 936415 1/2 Tablet(s) P O QD No Start Date 06/13/2016 Inactive metoprolol tartrate 50 mg tablet RxNorm: 968147 1/2 Tablet(s) P O BID No Start Date 05/09/2018 Inactive Flonase Allergy Relief 50 mcg/actuation nasal spray,suspensi on RxNorm: 5302418 2 [place] NASAL QHS No Start Date 11/06/2018 Inactive [...] Result Date S ervice Location GFR CALC [id number] GFR Non Afr Amr 52 mL/min 12/15/2018 Unk nown GFR CALC [id number] GFR Afr Amr >60 mL/min 12/15/2018 Unknow n COMPREHENSIVE METABOLIC 31324 AST 17 U/L 2018 Unknown COMPREHENSIVE METABOLIC 55012 ALT 11 U/L 2018 Unknown COMPREHENSIVE METABOLIC 17272 BUN 17 mg/dL 2018 Unknown COMPREHENSIVE METABOLIC 32714 ALBUMIN 3.9 g/dL 2018 Unknown COMPREHENSIVE METABOLIC 19499 CHLORIDE 108 mmol/L 12/15 Unknown COMPREHENSIVE METABOLIC 11988 Bili Total 0.5 mg/dL 12/15 Unknown COMPREHENSIVE METABOLIC 11439 ALK PHOS 72 U/L 2018 Unknown COMPREHENSIVE METABOLIC 23272 SODIUM 142 mmol/L 12/15 Unknown COMPREHENSIVE METABOLIC 78347 CREATININE 1.02 mg/dL 12/05 Unknown COMPREHENSIVE METABOLIC 17264 CALCIUM 9.3 mg/dL 2018 Unknown COMPREHENSIVE METABOLIC 82082 POTASSIUM 4.0 mmol/L 12/15 Unknown COMPREHENSIVE METABOLIC 71321 Total Protein 6.2 g/dL Unknown COMPREHENSIVE METABOLIC 70026 Glucose 93 mg/dL 2018 Unknown COMPREHENSIVE METABOLIC 61398 Bicarbonate 27 mmol/L 12/05 Unknown COMPREHENSIVE METABOLIC 35831 AGAP 7 mmol/L 2018 Unknown GFR CALC [id number] GFR Non Afr Amr 48 mL/min 08/14/2018 Unk nown GFR CALC [id number] GFR Afr Amr 59 mL/min 08/14/2018 Unknown THYROID STIMULATING HORMONE 80433 TSH 1.936 uIU/mL 08/14/2018 Unknown COMPREHENSIVE METABOLIC 36185 AST 18 U/L 2018 Unknown COMPREHENSIVE METABOLIC 88393 ALT 11 U/L 2018 Unknown COMPREHENSIVE METABOLIC 89646 BUN 18 mg/dL 2018 Unknown COMPREHENSIVE METABOLIC 59380 ALBUMIN 4.2 g/dL 2018 Unknown COMPREHENSIVE METABOLIC 67503 CHLORIDE 109 mmol/L 08/14 Unknown COMPREHENSIVE METABOLIC 55190 Bili Total 0.4 mg/dL 08/14 Unknown COMPREHENSIVE METABOLIC 21168 ALK PHOS 64 U/L 2018 Unknown COMPREHENSIVE METABOLIC 06422 SODIUM 142 mmol/L 08/14 Unknown COMPREHENSIVE METABOLIC 59126 CREATININE 1.09 mg/dL 08/05 Unknown COMPREHENSIVE METABOLIC 38790 CALCIUM 9.3 mg/dL 2018 Unknown COMPREHENSIVE METABOLIC 65201 POTASSIUM 4.7 mmol/L 08/14 Unknown COMPREHENSIVE METABOLIC 02929 Total Protein 6.3 g/dL Unknown COMPREHENSIVE METABOLIC 06932 Glucose 84 mg/dL 2018 Unknown COMPREHENSIVE METABOLIC 22232 Bicarbonate 25 mmol/L 08/05 Unknown COMPREHENSIVE METABOLIC 69018 AGAP 8 mmol/L 2018 Unknown COMPLETE BLOOD COUNT [id number] WBC 7.8 10e9/L 08/15/19 19 Unknown COMPLETE BLOOD COUNT [id number] RBC 4.04 10e12/L 2018 Unknown COMPLETE BLOOD COUNT [id number] HEMOGLOBIN 12.2 g/dL 08/15/19 19 Unknown COMPLETE BLOOD COUNT [id number] HEMATOCRIT 38.6 % 08/15/19 19 Unknown COMPLETE BLOOD COUNT [id number] MCV 95.5 fL 9 Unknown COMPLETE BLOOD COUNT [id number] MCH 30.2 pg 9 Unknown COMPLETE BLOOD COUNT [id number] MCHC 31.6 g/dL 9 Unknown COMPLETE BLOOD COUNT [id number] PLATELET COUNT 215 10e9/L 12/2018 Unknown COMPLETE BLOOD COUNT [id number] Mean Plt Volume 11.2 fL 12/2018 Unknown COMPLETE BLOOD COUNT [id number] Neut Auto 45.7 % 9 Unknown COMPLETE BLOOD COUNT [id number] Lymph Auto 42.1 % 08/15/19 19 Unknown COMPLETE BLOOD COUNT [id number] [place] Auto 9.2 % 9 Unknown COMPLETE BLOOD COUNT [id number] RDW 13.4 % 9 Unknown COMPLETE BLOOD COUNT [id number] Eos Auto 2.7 % 9 Unknown COMPLETE BLOOD COUNT [id number] Baso Auto 0.3 % 9 Unknown COMPLETE BLOOD COUNT [id number] Neutrophil Abs 3.56 10e9/L Unknown COMPLETE BLOOD COUNT [id number] Lymphocyte Abs 3.28 10e9/L Unknown COMPLETE BLOOD COUNT [id number] Monocyte Abs 0.72 10e9/L 08/05 Unknown COMPLETE BLOOD COUNT [id number] Eosinophil Abs 0.21 10e9/L Unknown COMPLETE BLOOD COUNT [id number] RDW-SD 44.9 fL 9 Unknown COMPLETE BLOOD COUNT [id number] Basophil Abs 0.02 10e9/L 08/05 Unknown COMPLETE BLOOD COUNT [id number] WBC 5.2 10e9/L 12/01/19 18 Unknown COMPLETE BLOOD COUNT [id number] RBC 4.21 10e12/L 2017 Unknown COMPLETE BLOOD COUNT [id number] HEMOGLOBIN 12.8 g/dL 12/01/19 18 Unknown COMPLETE BLOOD COUNT [id number] HEMATOCRIT 39.0 % 12/01/19 18 Unknown COMPLETE BLOOD COUNT [id number] MCV 92.6 fL 8 Unknown COMPLETE BLOOD COUNT [id number] MCH 30.4 pg 8 Unknown COMPLETE BLOOD COUNT [id number] MCHC 32.8 g/dL 8 Unknown COMPLETE BLOOD COUNT [id number] PLATELET COUNT 202 10e9/L Unknown COMPLETE BLOOD COUNT [id number] Mean Plt Volume 10.7 fL Unknown COMPLETE BLOOD COUNT [id number] Neut Auto 40.9 % 8 Unknown COMPLETE BLOOD COUNT [id number] Lymph Auto 46.3 % 12/01/19 18 Unknown COMPLETE BLOOD COUNT [id number] [place] Auto 9.3 % 8 Unknown COMPLETE BLOOD COUNT [id number] RDW 13.7 % 8 Unknown COMPLETE BLOOD COUNT [id number] Eos Auto 2.9 % 8 Unknown COMPLETE BLOOD COUNT [id number] Baso Auto 0.6 % 8 Unknown COMPLETE BLOOD COUNT [id number] Neutrophil Abs 2.13 10e9/L Unknown COMPLETE BLOOD COUNT [id number] Lymphocyte Abs 2.41 10e9/L Unknown COMPLETE BLOOD COUNT [id number] Monocyte Abs 0.48 10e9/L 11/06 Unknown COMPLETE BLOOD COUNT [id number] Eosinophil Abs 0.15 10e9/L Unknown COMPLETE BLOOD COUNT [id number] RDW-SD 45.2 fL 8 Unknown COMPLETE BLOOD COUNT [id number] Basophil Abs 0.03 10e9/L 11/06 [place] [address] Glucose 118 mg/dL 11/30 [place] [address] CREATININE 1.01 mg/dL [place] [address] BUN 14 mg/dL 11/30 [place] [address] SODIUM 141 mmol/L 11/06 [place] [address] POTASSIUM 4.0 mmol/L 11/06 [place] [address] CHLORIDE 108 mmol/L 11/06 [place] [address] Bicarbonate 25 mmol/L [place] [address] AGAP 8 mmol/L 11/30 [place] [address] CALCIUM 9.6 mg/dL 11/30 Unknown FREE T4 97692 T4 Free 1.23 ng/dL 11/30/2017 Unknown GFR CALC [id number] GFR Non Afr Amr 53 mL/min 11/30/2017 Unk nown GFR CALC [id number] GFR Afr Amr >60 mL/min 11/30/2017 Unknow n THYROID STIMULATING HORMONE 71628 TSH 2.124 uIU/mL 11/30/2017 Unknown LIPID GROUP 43769 Cholesterol 152 mg/dL 09/28/2017 Unkno wn LIPID GROUP 22984 Triglyceride 151 mg/dL 09/28/2017 Unkn own LIPID GROUP 70465 HDL CHOLESTEROL 47 mg/dL 09/28/2017 U nknown LIPID GROUP 72593 Chol/HDL Ratio 3.23 ratio 09/28/2017 U nknown LIPID GROUP 89343 NON-HDL Chol 105 mg/dL 09/28/2017 Unkn own LIPID GROUP 89161 LDL Cholesterol 75 mg/dL 09/28/2017 U nknown ASSAY OF TROPONIN QUANT 04367 Troponin-I <0.30 ng/mL Unknown COMPREHENSIVE METABOLIC 83688 AST 20 U/L 2017 Unknown COMPREHENSIVE METABOLIC 78917 ALT 14 U/L 2017 Unknown COMPREHENSIVE METABOLIC 30679 BUN 19 mg/dL 2017 Unknown COMPREHENSIVE METABOLIC 88440 ALBUMIN 4.2 g/dL 2017 Unknown COMPREHENSIVE METABOLIC 46880 CHLORIDE 102 mmol/L 09/27 Unknown COMPREHENSIVE METABOLIC 25785 Bili Total 0.4 mg/dL 09/27 Unknown COMPREHENSIVE METABOLIC 67001 ALK PHOS 66 U/L 2017 Unknown COMPREHENSIVE METABOLIC 38144 SODIUM 135 mmol/L 09/27 Unknown COMPREHENSIVE METABOLIC 99578 CREATININE 1.01 mg/dL 09/05 Unknown COMPREHENSIVE METABOLIC 07339 CALCIUM 9.3 mg/dL 2017 Unknown COMPREHENSIVE METABOLIC 88470 POTASSIUM 4.8 mmol/L 09/27 Unknown COMPREHENSIVE METABOLIC 49305 Total Protein 7.0 g/dL Unknown COMPREHENSIVE METABOLIC 05487 Glucose 91 mg/dL 2017 Unknown COMPREHENSIVE METABOLIC 05783 Bicarbonate 23 mmol/L 09/05 Unknown COMPREHENSIVE METABOLIC 08054 AGAP 10 mmol/L 2017 Unknown COMPLETE BLOOD COUNT [id number] WBC 7.5 10e9/L 09/28/19 18 Unknown COMPLETE BLOOD COUNT [id number] RBC 4.13 10e12/L 2017 Unknown COMPLETE BLOOD COUNT [id number] HEMOGLOBIN 12.6 g/dL 09/28/19 18 Unknown COMPLETE BLOOD COUNT [id number] HEMATOCRIT 38.4 % 09/28/19 18 Unknown COMPLETE BLOOD COUNT [id number] MCV 93.0 fL 8 Unknown COMPLETE BLOOD COUNT [id number] MCH 30.5 pg 8 Unknown COMPLETE BLOOD COUNT [id number] MCHC 32.8 g/dL 8 Unknown COMPLETE BLOOD COUNT [id number] PLATELET COUNT 204 10e9/L Unknown COMPLETE BLOOD COUNT 5322140 Mean Plt Volume 10.9 fL Unknown COMPLETE BLOOD COUNT 5906899 Neut Auto 43.1 % 8 Unknown COMPLETE BLOOD COUNT 5307415 Lymph Auto 45.0 % 09/28/19 18 Unknown COMPLETE BLOOD COUNT [id number] [place] Auto 9.2 % 8 Unknown COMPLETE BLOOD COUNT 9252813 RDW 13.4 % 8 Unknown COMPLETE BLOOD COUNT 3297924 Eos Auto 2.3 % 8 Unknown COMPLETE BLOOD COUNT [id number] Baso Auto 0.4 % 8 Unknown COMPLETE BLOOD COUNT [id number] Neutrophil Abs 3.23 10e9/L Unknown COMPLETE BLOOD COUNT [id number] Lymphocyte Abs 3.38 10e9/L Unknown COMPLETE BLOOD COUNT [id number] Monocyte Abs 0.69 10e9/L 09/05 Unknown COMPLETE BLOOD COUNT [id number] Eosinophil Abs 0.17 10e9/L Unknown COMPLETE BLOOD COUNT 1371026 RDW-SD 44.4 fL 8 Unknown COMPLETE BLOOD COUNT [id number] Basophil Abs 0.03 10e9/L 09/05 Unknown GFR CALC 8640569 GFR Non Afr Amr 53 mL/min 09/27/2017 Unk nown GFR CALC 5074461 GFR Afr Amr >60 mL/min 09/27/2017 Unknow n GLYCOSYLATED HEMOGLOBIN TEST 86382 Hgb A1c 40523-2 5.4 % 0 09/27/2017 Unknown MEAN GLUC 3309398 Calc Mean Gluc 108 mg/dL 09/27/2017 Unkn own MEAN GLUC [id number] Calc Mean Gluc 114 mg/dL 11/01/2016 Unkn own LIPID GROUP 39123 Cholesterol 146 mg/dL 11/01/2016 Unkno wn LIPID GROUP 55880 Triglyceride 119 mg/dL 11/01/2016 Unkn own LIPID GROUP 91331 HDL CHOLESTEROL 47 mg/dL 11/01/2016 U nknown LIPID GROUP 15557 Chol/HDL Ratio 3.11 ratio 11/01/2016 U nknown LIPID GROUP 11659 NON-HDL Chol 99 mg/dL 11/01/2016 Unkn own LIPID GROUP 04662 LDL Cholesterol 75 mg/dL 11/01/2016 U nknown GLYCOSYLATED HEMOGLOBIN TEST 74843 Hgb A1c 88953-3 5.6 % 0 11/01/2016 Unknown COMPREHENSIVE METABOLIC 86183 AST 22 U/L 2016 Unknown COMPREHENSIVE METABOLIC 71034 ALT 12 U/L 2016 Unknown COMPREHENSIVE METABOLIC 53693 BUN 17 mg/dL 2016 Unknown COMPREHENSIVE METABOLIC 37165 ALBUMIN 4.0 g/dL 2016 Unknown COMPREHENSIVE METABOLIC 57308 CHLORIDE 110 mmol/L 11/01 Unknown COMPREHENSIVE METABOLIC 58978 Bili Total 0.4 mg/dL 11/01 Unknown COMPREHENSIVE METABOLIC 71078 ALK PHOS 63 U/L 2016 Unknown COMPREHENSIVE METABOLIC 81769 SODIUM 140 mmol/L 11/01 Unknown COMPREHENSIVE METABOLIC 63718 CREATININE 1.05 mg/dL 10/06 Unknown COMPREHENSIVE METABOLIC 76834 CALCIUM 9.2 mg/dL 2016 Unknown COMPREHENSIVE METABOLIC 36323 POTASSIUM 4.2 mmol/L 11/01 Unknown COMPREHENSIVE METABOLIC 36837 Total Protein 6.2 g/dL Unknown COMPREHENSIVE METABOLIC 46347 Glucose 87 mg/dL 2016 Unknown COMPREHENSIVE METABOLIC 39755 Bicarbonate 24 mmol/L 10/06 Unknown COMPREHENSIVE METABOLIC 58222 AGAP 6 mmol/L 2016 Unknown GFR CALC [id number] GFR Non Afr Amr 51 mL/min 11/01/2016 Unk nown GFR CALC 8552070 GFR Afr Amr >60 mL/min 11/01/2016 Unknow n COMPLETE BLOOD COUNT [id number] WBC 6.7 10e9/L 11/02/19 17 Unknown COMPLETE BLOOD COUNT [id number] RBC 4.04 10e12/L 2016 Unknown COMPLETE BLOOD COUNT [id number] HEMOGLOBIN 12.1 g/dL 11/02/19 17 Unknown COMPLETE BLOOD COUNT [id number] HEMATOCRIT 38.0 % 11/02/19 17 Unknown COMPLETE BLOOD COUNT [id number] MCV 94.1 fL 7 Unknown COMPLETE BLOOD COUNT 3837259 MCH 30.0 pg 7 Unknown COMPLETE BLOOD COUNT 4593485 MCHC 31.8 g/dL 7 Unknown COMPLETE BLOOD COUNT [id number] PLATELET COUNT 206 10e9/L Unknown COMPLETE BLOOD COUNT 2394574 Mean Plt Volume 11.3 fL Unknown COMPLETE BLOOD COUNT [id number] Neut Auto 35.8 % 7 Unknown COMPLETE BLOOD COUNT [id number] Lymph Auto 51.6 % 11/02/19 17 Unknown COMPLETE BLOOD COUNT 8373679 [place] Auto 8.8 % 7 Unknown COMPLETE BLOOD COUNT 2729617 RDW 13.5 % 7 Unknown COMPLETE BLOOD COUNT 5886718 Eos Auto 3.4 % 7 Unknown COMPLETE BLOOD COUNT 2943699 Baso Auto 0.4 % 7 Unknown COMPLETE BLOOD COUNT 9128839 Neutrophil Abs 2.40 10e9/L Unknown COMPLETE BLOOD COUNT [id number] Lymphocyte Abs 3.46 10e9/L Unknown COMPLETE BLOOD COUNT [id number] Monocyte Abs 0.59 10e9/L 10/06 Unknown COMPLETE BLOOD COUNT [id number] Eosinophil Abs 0.23 10e9/L Unknown COMPLETE BLOOD COUNT [id number] RDW-SD 45.3 fL 7 Unknown COMPLETE BLOOD COUNT [id number] Basophil Abs 0.03 10e9/L 10/06 Unknown THYROID STIMULATING HORMONE 76202 TSH 1.981 uIU/mL 11/01/2016 Unknown COMPLETE BLOOD COUNT 4571581 WBC 6.0 10e9/L 05/14/19 17 Unknown COMPLETE BLOOD COUNT [id number] RBC 4.29 10e12/L 2016 Unknown COMPLETE BLOOD COUNT [id number] HEMOGLOBIN 12.9 g/dL 05/14/19 17 Unknown COMPLETE BLOOD COUNT 1460184 HEMATOCRIT 38.4 % 05/14/19 17 Unknown COMPLETE BLOOD COUNT 3894742 MCV 89.5 fL 7 Unknown COMPLETE BLOOD COUNT 1142934 MCH 30.1 pg 7 Unknown COMPLETE BLOOD COUNT 9337976 MCHC 33.6 g/dL 7 Unknown COMPLETE BLOOD COUNT 8800489 PLATELET COUNT 181 10e9/L 11/2016 Unknown COMPLETE BLOOD COUNT 0962083 Mean Plt Volume 11.7 fL 11/2016 Unknown COMPLETE BLOOD COUNT 1358638 Neut Auto 36.9 % 7 Unknown COMPLETE BLOOD COUNT 4840871 Lymph Auto 50.4 % 05/14/19 17 Unknown COMPLETE BLOOD COUNT 3950934 [place] Auto 9.0 % 7 Unknown COMPLETE BLOOD COUNT 9288030 RDW 13.7 % 7 Unknown COMPLETE BLOOD COUNT 4864355 Eos Auto 3.4 % 7 Unknown COMPLETE BLOOD COUNT 7415300 Baso Auto 0.3 % 7 Unknown COMPLETE BLOOD COUNT 8811241 Neutrophil Abs 2.21 10e9/L Unknown COMPLETE BLOOD COUNT 8057877 Lymphocyte Abs 3.02 10e9/L Unknown COMPLETE BLOOD COUNT [id number] Monocyte Abs 0.54 10e9/L 11/2016 Unknown COMPLETE BLOOD COUNT 9557685 Eosinophil Abs 0.20 10e9/L Unknown COMPLETE BLOOD COUNT 1567352 RDW-SD 44.0 fL 7 Unknown COMPLETE BLOOD COUNT [id number] Basophil Abs 0.02 10e9/L 11/2016 Unknown GLYCOSYLATED HEMOGLOBIN TEST 44349 Hgb A1c 78444-6 5.4 % 0 05/13/2016 Unknown THYROID STIMULATING HORMONE 41746 TSH 2.200 uIU/mL 05/13/2016 Unknown GFR CALC 3649858 GFR Non Afr Amr 50 mL/min 05/13/2016 Unk nown GFR CALC 5101392 GFR Afr Amr >60 mL/min 05/13/2016 Unknow n MEAN GLUC 8307791 Calc Mean Gluc 108 mg/dL 05/13/2016 Unkn own COMPREHENSIVE METABOLIC 93630 AST 18 U/L 2016 Unknown COMPREHENSIVE METABOLIC 68754 ALT 10 U/L 2016 Unknown COMPREHENSIVE METABOLIC 55465 BUN 20 mg/dL 2016 Unknown COMPREHENSIVE METABOLIC 68557 ALBUMIN 4.1 g/dL 2016 Unknown COMPREHENSIVE METABOLIC 27663 CHLORIDE 109 mmol/L 05/13 Unknown COMPREHENSIVE METABOLIC 43271 Bili Total 0.6 mg/dL 05/13 Unknown COMPREHENSIVE METABOLIC 98045 ALK PHOS 64 U/L 2016 Unknown COMPREHENSIVE METABOLIC 78477 SODIUM 141 mmol/L 05/13 Unknown COMPREHENSIVE METABOLIC 92632 CREATININE 1.06 mg/dL 11/2016 Unknown COMPREHENSIVE METABOLIC 82832 CALCIUM 9.9 mg/dL 2016 Unknown COMPREHENSIVE METABOLIC 42024 POTASSIUM 4.2 mmol/L 05/13 Unknown COMPREHENSIVE METABOLIC 45205 Total Protein 6.3 g/dL Unknown COMPREHENSIVE METABOLIC 44927 Glucose 99 mg/dL 2016 Unknown COMPREHENSIVE METABOLIC 74735 Bicarbonate 21 mmol/L 11/2016 Unknown COMPREHENSIVE METABOLIC 42565 AGAP 11 mmol/L 2016 Unknown LIPID GROUP 20035 Cholesterol 169 mg/dL 11/25/2015 Unkno wn LIPID GROUP 62613 Triglyceride 165 mg/dL 11/25/2015 Unkn own LIPID GROUP 68343 HDL CHOLESTEROL 43 mg/dL 11/25/2015 U nknown LIPID GROUP 08024 Chol/HDL Ratio 3.93 ratio 11/25/2015 U nknown LIPID GROUP 59203 NON-HDL Chol 126 mg/dL 11/25/2015 Unkn own LIPID GROUP 04832 LDL Cholesterol 93 mg/dL 11/25/2015 U nknown COMPREHENSIVE METABOLIC 50110 AST 18 U/L 2015 Unknown COMPREHENSIVE METABOLIC 53868 ALT 10 U/L 2015 Unknown COMPREHENSIVE METABOLIC 78572 BUN 20 mg/dL 2015 Unknown COMPREHENSIVE METABOLIC 49952 ALBUMIN 3.9 g/dL 2015 Unknown COMPREHENSIVE METABOLIC 59156 CHLORIDE 110 mmol/L 11/24 Unknown COMPREHENSIVE METABOLIC 14265 Bili Total 0.5 mg/dL 11/24 Unknown COMPREHENSIVE METABOLIC 21986 ALK PHOS 72 U/L 2015 Unknown COMPREHENSIVE METABOLIC 61304 SODIUM 141 mmol/L 11/24 Unknown COMPREHENSIVE METABOLIC 99914 CREATININE 1.12 mg/dL 11/06 Unknown COMPREHENSIVE METABOLIC 60632 CALCIUM 9.7 mg/dL 2015 Unknown COMPREHENSIVE METABOLIC 78274 POTASSIUM 4.4 mmol/L 11/24 Unknown COMPREHENSIVE METABOLIC 01651 Total Protein 6.2 g/dL Unknown COMPREHENSIVE METABOLIC 65140 Glucose 90 mg/dL 2015 Unknown COMPREHENSIVE METABOLIC 48651 Bicarbonate 23 mmol/L 11/06 Unknown COMPREHENSIVE METABOLIC 13539 AGAP 8 mmol/L 2015 Unknown GFR CALC [id number] GFR Non Afr Amr 47 mL/min 11/25/2015 Unk nown GFR CALC 7086454 GFR Afr Amr 57 mL/min 11/25/2015 Unknown GLYCOSYLATED HEMOGLOBIN TEST 89048 Hgb A1c 09264-7 5.5 % 0 11/25/2015 Unknown THYROID STIMULATING HORMONE 71456 TSH 2.537 uIU/mL 11/25/2015 Unknown FREE T4 50738 T4 Free 1.36 ng/dL 11/25/2015 Unknown COMPLETE BLOOD COUNT 0790610 WBC 6.8 10e9/L 11/25/19 16 Unknown COMPLETE BLOOD COUNT 0214317 RBC 4.20 10e12/L 2015 Unknown COMPLETE BLOOD COUNT 3917343 HEMOGLOBIN 12.5 g/dL 11/25/19 16 Unknown COMPLETE BLOOD COUNT 4273697 HEMATOCRIT 38.0 % 11/25/19 16 Unknown COMPLETE BLOOD COUNT 0378650 MCV 90.5 fL 6 Unknown COMPLETE BLOOD COUNT 6783799 MCH 29.8 pg 6 Unknown COMPLETE BLOOD COUNT 4973644 MCHC 32.9 g/dL 6 Unknown COMPLETE BLOOD COUNT 3831725 PLATELET COUNT 197 10e9/L Unknown COMPLETE BLOOD COUNT 2454812 Mean Plt Volume 11.7 fL Unknown COMPLETE BLOOD COUNT 8982214 Neut Auto 41.3 % 6 Unknown COMPLETE BLOOD COUNT 3523572 Lymph Auto 47.1 % 11/25/19 16 Unknown COMPLETE BLOOD COUNT 4372602 [place] Auto 7.8 % 6 Unknown COMPLETE BLOOD COUNT 5643206 RDW 13.8 % 6 Unknown COMPLETE BLOOD COUNT 2250873 Eos Auto 3.4 % 6 Unknown COMPLETE BLOOD COUNT 6727739 Baso Auto 0.4 % 6 Unknown COMPLETE BLOOD COUNT 1947804 Neutrophil Abs 2.81 10e9/L Unknown COMPLETE BLOOD COUNT 1705995 Lymphocyte Abs 3.20 10e9/L Unknown COMPLETE BLOOD COUNT 3923164 Monocyte Abs 0.53 10e9/L 11/06 Unknown COMPLETE BLOOD COUNT 0116354 Eosinophil Abs 0.23 10e9/L Unknown COMPLETE BLOOD COUNT 9885640 RDW-SD 44.4 fL 6 Unknown COMPLETE BLOOD COUNT 2865482 Basophil Abs 0.03 10e9/L 11/06 Unknown MEAN GLUC 4181203 Calc Mean Gluc 111 mg/dL 11/25/2015 [place] [address] Glucose 89 MG/DL 02/19 [place] [address] CREATININE 1.12 MG/DL [place] [address] BUN 20 MG/DL 02/19 [place] [address] SODIUM 139 MMOL/L 02/04 [place] [address] POTASSIUM 4.6 MMOL/L 02/04 [place] [address] CHLORIDE 108 MMOL/L 02/04 [place] [address] BICARB 26 MMOL/L 02/19 [place] [address] ANION GAP 5 MEQ/L 02/19 [place] [address] CALCIUM 10.0 MG/DL 02/04 Unknown GFR CALC 1681681 GFR AA 57.0L ML/MIN 02/19/2015 Unknow n GFR CALC 6028545 GFR NON-AA 47.0L ML/MIN 02/19/2015 Unkno wn THYROID STIMULATING HORMONE 38625 TSH 2.378 uIU/ML 11/14/2014 Unknown COMPLETE BLOOD COUNT 4098259 WBC 6.4 10e9/L 11/15/19 15 Unknown COMPLETE BLOOD COUNT 6138041 RBC 3.99 10e12/L 2014 Unknown COMPLETE BLOOD COUNT 7785513 HGB 11.9 g/dL 5 Unknown COMPLETE BLOOD COUNT 8958801 HCT DET 36.9 % 5 Unknown COMPLETE BLOOD COUNT 6789523 MCV 92.5 fL 5 Unknown COMPLETE BLOOD COUNT 0765982 MCH 29.8 pg 5 Unknown COMPLETE BLOOD COUNT 9123344 MCHC 32.2 g/dL 5 Unknown COMPLETE BLOOD COUNT 3057232 PLT 172 10e9/L 11/15/19 15 Unknown COMPLETE BLOOD COUNT 8205302 MPV 11.7 fL 5 Unknown COMPLETE BLOOD COUNT 2982539 CINTHYA % 40.4 % 5 Unknown COMPLETE BLOOD COUNT 5144339 LY % 48.0 % 5 Unknown COMPLETE BLOOD COUNT 5105736 MON % 8.3 % 5 Unknown COMPLETE BLOOD COUNT 9842778 EOS % 2.8 % 5 Unknown COMPLETE BLOOD COUNT 7149404 BASO % 0.5 % 5 Unknown COMPLETE BLOOD COUNT 4962278 RDW 13.6 % 5 Unknown COMPLETE BLOOD COUNT 9366627 ABS CINTHYA 2.59 10e9/L 015 Unknown COMPLETE BLOOD COUNT 1502053 ABS LYMPH 3.07 10e9/L 015 Unknown COMPLETE BLOOD COUNT 9577747 ABS MONO 0.53 10e9/L 015 Unknown COMPLETE BLOOD COUNT 2546392 ABS EOS 0.18 10e9/L 015 Unknown COMPLETE BLOOD COUNT 7196238 ABS BASO 0.03 10e9/L 015 Unknown COMPLETE BLOOD COUNT 1151568 RDW-SD 44.9 fL 5 Unknown LIPID GROUP 08033 HDL TEST 42 MG/DL 11/14/2014 Unknown LIPID GROUP 65868 TRIG 177 MG/DL 11/14/2014 Unknown LIPID GROUP 83232 TEST LDL 72 MG/DL 11/14/2014 Unknown LIPID GROUP 11131 CHOL 149 MG/DL 11/14/2014 Unknown LIPID GROUP 89163 RCHOL/HDL 3.55 RATIO 11/14/2014 Unknow n LIPID GROUP 15543 NON-HDL CH 107 MG/DL 11/14/2014 Unknow n GLYCOSYLATED HEMOGLOBIN TEST 80769 A1C HPLC 31434-5 5.5 % 0 11/14/2014 Unknown FREE T4 89609 FREE T4 1.39 NG/DL 11/14/2014 Unknown GFR CALC 7898823 GFR AA 55.0L ML/MIN 11/14/2014 Unknow n GFR CALC 1400365 GFR NON-AA 46.0L ML/MIN 11/14/2014 Unkno wn COMPREHENSIVE METABOLIC 67724 AST 17 U/L 2014 Unknown COMPREHENSIVE METABOLIC 92286 ALT 10 IU/L 2014 Unknown COMPREHENSIVE METABOLIC 34304 BUN 20 MG/DL 2014 Unknown COMPREHENSIVE METABOLIC 42898 ALBUMIN 3.9 GM/DL 2014 Unknown COMPREHENSIVE METABOLIC 85734 CHLORIDE 111 MMOL/L 11/14 Unknown COMPREHENSIVE METABOLIC 56335 BILI TOT 0.4 MG/DL 2014 Unknown COMPREHENSIVE METABOLIC 37349 ALK PHOS 70 U/L 2014 Unknown COMPREHENSIVE METABOLIC 00920 SODIUM 142 MMOL/L 11/14 Unknown COMPREHENSIVE METABOLIC 26136 CREATININE 1.16 MG/DL 11/05 Unknown COMPREHENSIVE METABOLIC 60164 CALCIUM 9.4 MG/DL 2014 Unknown COMPREHENSIVE METABOLIC 42451 POTASSIUM 4.6 MMOL/L 11/14 Unknown COMPREHENSIVE METABOLIC 33357 PROT TOT 6.2 GM/DL 2014 Unknown COMPREHENSIVE METABOLIC 15284 Glucose 90 MG/DL 2014 Unknown COMPREHENSIVE METABOLIC 35760 BICARB 24 MMOL/L 2014 Unknown COMPREHENSIVE METABOLIC 68038 ANION GAP 7 MEQ/L 2014 Unknown THYROID STIMULATING HORMONE 86696 TSH 2.427 uIU/ML 05/10/2014 Unknown LIPID GROUP 47170 HDL TEST 47 MG/DL 05/10/2014 Unknown LIPID GROUP 05655 TRIG 145 MG/DL 05/10/2014 Unknown LIPID GROUP 42090 TEST LDL 73 MG/DL 05/10/2014 Unknown LIPID GROUP 50912 CHOL 149 MG/DL 05/10/2014 Unknown LIPID GROUP 87206 RCHOL/HDL 3.17 RATIO 05/10/2014 Unknow n LIPID GROUP 81109 NON-HDL CH 102 MG/DL 05/10/2014 Unknow n COMPREHENSIVE METABOLIC 41469 AST 17 U/L 2014 Unknown COMPREHENSIVE METABOLIC 56283 ALT 9 IU/L 2014 Unknown COMPREHENSIVE METABOLIC 26681 BUN 19 MG/DL 2014 Unknown COMPREHENSIVE METABOLIC 28683 ALBUMIN 4.3 GM/DL 2014 Unknown COMPREHENSIVE METABOLIC 52627 CHLORIDE 108 MMOL/L 05/10 Unknown COMPREHENSIVE METABOLIC 60308 BILI TOT 0.5 MG/DL 2014 Unknown COMPREHENSIVE METABOLIC 37735 ALK PHOS 68 U/L 2014 Unknown COMPREHENSIVE METABOLIC 57417 SODIUM 140 MMOL/L 05/10 Unknown COMPREHENSIVE METABOLIC 46592 CREATININE 1.08 MG/DL 08/2014 Unknown COMPREHENSIVE METABOLIC 76294 CALCIUM 9.9 MG/DL 2014 Unknown COMPREHENSIVE METABOLIC 76508 POTASSIUM 4.3 MMOL/L 05/10 Unknown COMPREHENSIVE METABOLIC 67676 PROT TOT 7.2 GM/DL 2014 Unknown COMPREHENSIVE METABOLIC 77950 Glucose 94 MG/DL 2014 Unknown COMPREHENSIVE METABOLIC 45119 BICARB 26 MMOL/L 2014 Unknown COMPREHENSIVE METABOLIC 52754 ANION GAP 6 MEQ/L 2014 Unknown GFR CALC 3983028 GFR AA 60.0L ML/MIN 05/10/2014 Unknow n GFR CALC 2508484 GFR NON-AA 49.0L ML/MIN 05/10/2014 Unkno wn GLYCOSYLATED HEMOGLOBIN TEST 91473 A1C HPLC 68301-6 5.6 % 0 05/10/2014 Unknown COMPLETE BLOOD COUNT 6229655 WBC 7.2 10e9/L 05/11/19 15 Unknown COMPLETE BLOOD COUNT 0786611 RBC 4.28 10e12/L 2014 Unknown COMPLETE BLOOD COUNT 8370307 HGB 12.8 g/dL 5 Unknown COMPLETE BLOOD COUNT 4776307 HCT DET 39.3 % 5 Unknown COMPLETE BLOOD COUNT 1767140 MCV 91.8 fL 5 Unknown COMPLETE BLOOD COUNT 2068216 MCH 29.9 pg 5 Unknown COMPLETE BLOOD COUNT 6543700 MCHC 32.6 g/dL 5 Unknown COMPLETE BLOOD COUNT 8468101 PLT 189 10e9/L 05/11/19 15 Unknown COMPLETE BLOOD COUNT 3134049 MPV 11.2 fL 5 Unknown COMPLETE BLOOD COUNT 9168210 CINTHYA % 38.0 % 5 Unknown COMPLETE BLOOD COUNT 4223418 LY % 51.0 % 5 Unknown COMPLETE BLOOD COUNT 7752703 MON % 7.7 % 5 Unknown COMPLETE BLOOD COUNT 0659860 EOS % 2.9 % 5 Unknown COMPLETE BLOOD COUNT 8438246 BASO % 0.4 % 5 Unknown COMPLETE BLOOD COUNT 7781340 RDW 14.0 % 5 Unknown COMPLETE BLOOD COUNT 9470145 ABS CINTHYA 2.74 10e9/L 015 Unknown COMPLETE BLOOD COUNT 2709357 ABS LYMPH 3.67 10e9/L 015 Unknown COMPLETE BLOOD COUNT 2808062 ABS MONO 0.55 10e9/L 015 Unknown COMPLETE BLOOD COUNT 7644817 ABS EOS 0.21 10e9/L 015 Unknown COMPLETE BLOOD COUNT 4329155 ABS BASO 0.03 10e9/L 015 Unknown COMPLETE BLOOD COUNT 7508124 RDW-SD 46.1 fL 5 Unknown FREE T4 62127 FREE T4 1.14 NG/DL 05/10/2014 Unknown GLYCOSYLATED HEMOGLOBIN TEST 95017 A1C HPLC 20944-0 5.2 % 0 03/29/2013 Unknown FREE T4 20926 FREE T4 1.40 NG/DL 03/28/2013 Unknown GFR CALC 6900486 GFR AA >60 ML/MIN 03/28/2013 Unknown GFR CALC 9252790 GFR NON-AA 52.0L ML/MIN 03/28/2013 Unkno wn COMPREHENSIVE METABOLIC 70761 AST 15 U/L 2013 Unknown COMPREHENSIVE METABOLIC 56519 ALT 9 IU/L 2013 Unknown COMPREHENSIVE METABOLIC 41589 BUN 17 MG/DL 2013 Unknown COMPREHENSIVE METABOLIC 57398 ALBUMIN 4.0 GM/DL 2013 Unknown COMPREHENSIVE METABOLIC 63827 CHLORIDE 112 MMOL/L 03/28 Unknown COMPREHENSIVE METABOLIC 76488 BILI TOT 0.5 MG/DL 2013 Unknown COMPREHENSIVE METABOLIC 37977 ALK PHOS 66 U/L 2013 Unknown COMPREHENSIVE METABOLIC 43161 SODIUM 140 MMOL/L 03/28 Unknown COMPREHENSIVE METABOLIC 34077 CREATININE 1.03 MG/DL 03/08 Unknown COMPREHENSIVE METABOLIC 87874 CALCIUM 9.5 MG/DL 2013 Unknown COMPREHENSIVE METABOLIC 61786 POTASSIUM 4.1 MMOL/L 03/28 Unknown COMPREHENSIVE METABOLIC 80381 PROT TOT 6.2 GM/DL 2013 Unknown COMPREHENSIVE METABOLIC 75950 Glucose 102 MG/DL 2013 Unknown COMPREHENSIVE METABOLIC 29939 BICARB 23 MMOL/L 2013 Unknown COMPREHENSIVE METABOLIC 47205 ANION GAP 5 MEQ/L 2013 Unknown THYROID STIMULATING HORMONE 93968 TSH 2.074 uIU/ML 03/28/2013 Unknown VITAMIN B 12 FOLIC ACID 94154|24707 VIT B 12 423 PG/ML 03/08 Unknown VITAMIN B 12 FOLIC ACID 54318|52966 FOLIC ACID 19.7 NG/ML Unknown LIPID GROUP 52794 HDL TEST 40 MG/DL 03/28/2013 Unknown LIPID GROUP 88273 TRIG 145 MG/DL 03/28/2013 Unknown LIPID GROUP 26777 TEST LDL 81 MG/DL 03/28/2013 Unknown LIPID GROUP 00264 CHOL 150 MG/DL 03/28/2013 Unknown LIPID GROUP 17287 RCHOL/HDL 3.75 RATIO 03/28/2013 Unknow n COMPLETE BLOOD COUNT 5612091 WBC 6.0 10e9/L 03/28/19 14 Unknown COMPLETE BLOOD COUNT 8997600 RBC 4.26 10e12/L 2013 Unknown COMPLETE BLOOD COUNT 9032076 HGB 12.7 g/dL 4 Unknown COMPLETE BLOOD COUNT 6926562 HCT DET 38.7 % 4 Unknown COMPLETE BLOOD COUNT 2563839 MCV 90.8 fL 4 Unknown COMPLETE BLOOD COUNT 6544354 MCH 29.8 pg 4 Unknown COMPLETE BLOOD COUNT 3318519 MCHC 32.8 g/dL 4 Unknown COMPLETE BLOOD COUNT 6194957 PLT 178 10e9/L 03/28/19 14 Unknown COMPLETE BLOOD COUNT 3897443 MPV 11.7 fL 4 Unknown COMPLETE BLOOD COUNT 0813662 CINTHYA % 30.5 % 4 Unknown COMPLETE BLOOD COUNT 6448006 LY % 55.4 % 4 Unknown COMPLETE BLOOD COUNT 5803696 MON % 9.0 % 4 Unknown COMPLETE BLOOD COUNT 5622245 EOS % 4.4 % 4 Unknown COMPLETE BLOOD COUNT 5600464 BASO % 0.7 % 4 Unknown COMPLETE BLOOD COUNT 7124514 RDW 13.3 % 4 Unknown COMPLETE BLOOD COUNT 8948325 ABS CINTHYA 1.83 10e9/L 014 Unknown COMPLETE BLOOD COUNT 0367429 ABS LYMPH 3.32 10e9/L 014 Unknown COMPLETE BLOOD COUNT 5407233 ABS MONO 0.54 10e9/L 014 Unknown COMPLETE BLOOD COUNT 9024360 ABS EOS 0.26 10e9/L 014 Unknown COMPLETE BLOOD COUNT 9980999 ABS BASO 0.04 10e9/L 014 Unknown COMPLETE BLOOD COUNT 5551043 RDW-SD 43.2 fL 4 Unknown HEMOGLOBIN A1C (GLYCOSYLATED) 5328266 A1C [facility] 32576-7 5.5 % 02/24/2012 Unknown COMPLETE BLOOD COUNT 5185212 WBC 6.0 10e9/L 02/23/20 12 Unknown COMPLETE BLOOD COUNT 7259044 RBC 4.22 10e12/L 2011 Unknown COMPLETE BLOOD COUNT 7804079 HGB 12.4 g/dL 2 Unknown COMPLETE BLOOD COUNT 0635228 HCT DET 38.2 % 2 Unknown COMPLETE BLOOD COUNT 6143415 MCV 90.5 fL 2 Unknown COMPLETE BLOOD COUNT 3470740 MCH 29.4 pg 2 Unknown COMPLETE BLOOD COUNT 2322810 MCHC 32.5 g/dL 2 Unknown COMPLETE BLOOD COUNT 3875508 PLT 187 10e9/L 02/23/20 12 Unknown COMPLETE BLOOD COUNT 3607275 MPV 11.5 fL 2 Unknown COMPLETE BLOOD COUNT 3901248 CINTHYA % 36.4 % 2 Unknown COMPLETE BLOOD COUNT 5196039 LY % 51.0 % 2 Unknown COMPLETE BLOOD COUNT 0246536 MON % 8.7 % 2 Unknown COMPLETE BLOOD COUNT 6774414 EOS % 3.2 % 2 Unknown COMPLETE BLOOD COUNT 7223260 BASO % 0.7 % 2 Unknown COMPLETE BLOOD COUNT 3819047 RDW 13.7 % 2 Unknown COMPLETE BLOOD COUNT 9264400 ABS CINTHYA 2.18 10e9/L 012 Unknown COMPLETE BLOOD COUNT 7758074 ABS LYMPH 3.06 10e9/L 012 Unknown COMPLETE BLOOD COUNT 9455125 ABS MONO 0.52 10e9/L 012 Unknown COMPLETE BLOOD COUNT 3325481 ABS EOS 0.19 10e9/L 012 Unknown COMPLETE BLOOD COUNT 8410545 ABS BASO 0.04 10e9/L 012 Unknown COMPLETE BLOOD COUNT 8426630 RDW-SD 44.3 fL 2 Unknown LIPID GROUP 75986 HDL TEST 42 MG/DL 02/23/2012 Unknown LIPID GROUP 67858 TRIG 156 MG/DL 02/23/2012 Unknown LIPID GROUP 85818 TEST LDL 80 MG/DL 02/23/2012 Unknown LIPID GROUP 37974 CHOL 153 MG/DL 02/23/2012 Unknown LIPID GROUP 42215 RCHOL/HDL 3.64 RATIO 02/23/2012 Unknow n FREE T4 41660 FREE T4 1.22 NG/DL 02/23/2012 Unknown COMPREHENSIVE METABOLIC 78055 AST 20 U/L 2011 Unknown COMPREHENSIVE METABOLIC 61006 ALT 11 IU/L 2011 Unknown COMPREHENSIVE METABOLIC 67666 BUN 19 MG/DL 2011 Unknown COMPREHENSIVE METABOLIC 63561 ALBUMIN 4.3 GM/DL 2011 Unknown COMPREHENSIVE METABOLIC 08392 CHLORIDE 109 MMOL/L 02/22 Unknown COMPREHENSIVE METABOLIC 45755 BILI TOT 0.6 MG/DL 2011 Unknown COMPREHENSIVE METABOLIC 44364 ALK PHOS 84 U/L 2011 Unknown COMPREHENSIVE METABOLIC 28102 SODIUM 142 MMOL/L 02/22 Unknown COMPREHENSIVE METABOLIC 39153 CREATININE 1.09 MG/DL 02/04 Unknown COMPREHENSIVE METABOLIC 12085 CALCIUM 9.8 MG/DL 2011 Unknown COMPREHENSIVE METABOLIC 66385 POTASSIUM 4.2 MMOL/L 02/22 Unknown COMPREHENSIVE METABOLIC 89085 PROT TOT 6.4 GM/DL 2011 Unknown COMPREHENSIVE METABOLIC 47545 Glucose 89 MG/DL 2011 Unknown COMPREHENSIVE METABOLIC 22078 BICARB 25 MMOL/L 2011 Unknown COMPREHENSIVE METABOLIC 26087 ANION GAP 8 MEQ/L 2011 Unknown GFR CALC 0446072 GFR AA 60.0L ML/MIN 02/23/2012 Unknow n GFR CALC 1217715 GFR NON-AA 49.0L ML/MIN 02/23/2012 Unkno wn THYROID STIMULATING HORMONE 43270 TSH 2.450 uIU/ML 02/23/2012 Unknown COMPREHENSIVE METABOLIC 83367 AST 22 U/L 2011 Unknown COMPREHENSIVE METABOLIC 65956 ALT 14 IU/L 2011 Unknown COMPREHENSIVE METABOLIC 26265 BUN 21 MG/DL 2011 Unknown COMPREHENSIVE METABOLIC 40736 ALBUMIN 4.3 GM/DL 2011 Unknown COMPREHENSIVE METABOLIC 31703 CHLORIDE 106 MMOL/L 04/01 Unknown COMPREHENSIVE METABOLIC 00741 BILI TOT 0.4 MG/DL 2011 Unknown COMPREHENSIVE METABOLIC 69656 ALK PHOS 80 U/L 2011 Unknown COMPREHENSIVE METABOLIC 20274 SODIUM 141 MMOL/L 04/01 Unknown COMPREHENSIVE METABOLIC 03879 CREATININE 1.13 MG/DL 03/08 Unknown COMPREHENSIVE METABOLIC 43677 CALCIUM 9.4 MG/DL 2011 Unknown COMPREHENSIVE METABOLIC 62849 POTASSIUM 4.3 MMOL/L 04/01 Unknown COMPREHENSIVE METABOLIC 97536 PROT TOT 6.7 GM/DL 2011 Unknown COMPREHENSIVE METABOLIC 77834 Glucose 98 MG/DL 2011 Unknown COMPREHENSIVE METABOLIC 55120 BICARB 25 MMOL/L 2011 Unknown COMPREHENSIVE METABOLIC 90945 ANION GAP 10 MEQ/L 2011 Unknown LIPID GROUP 23804 HDL TEST 44 MG/DL 04/01/2011 Unknown LIPID GROUP 36177 TRIG 164 MG/DL 04/01/2011 Unknown LIPID GROUP 76488 TEST LDL 98 MG/DL 04/01/2011 Unknown LIPID GROUP 64002 CHOL 175 MG/DL 04/01/2011 Unknown LIPID GROUP 06847 RCHOL/HDL 3.98 RATIO 04/01/2011 Unknow n COMPLETE BLOOD COUNT 93623 WBC 6.7 10e9/L 04/01/19 12 Unknown COMPLETE BLOOD COUNT 53121 RBC 4.36 10e12/L 2011 Unknown COMPLETE BLOOD COUNT 64842 HGB 12.9 g/dL 2 Unknown COMPLETE BLOOD COUNT 06258 HCT DET 39.4 % 2 Unknown COMPLETE BLOOD COUNT 72204 MCV 90.4 fL 2 Unknown COMPLETE BLOOD COUNT 82875 MCH 29.6 pg 2 Unknown COMPLETE BLOOD COUNT 08061 MCHC 32.7 g/dL 2 Unknown COMPLETE BLOOD COUNT 18827 PLT 184 10e9/L 04/01/19 12 Unknown COMPLETE BLOOD COUNT 78647 MPV 10.9 fL 2 Unknown COMPLETE BLOOD COUNT 57815 CINTHYA % 41.5 % 2 Unknown COMPLETE BLOOD COUNT 34087 LY % 45.7 % 2 Unknown COMPLETE BLOOD COUNT 22294 MON % 9.4 % 2 Unknown COMPLETE BLOOD COUNT 16424 EOS % 3.0 % 2 Unknown COMPLETE BLOOD COUNT 53911 BASO % 0.4 % 2 Unknown COMPLETE BLOOD COUNT 71154 RDW 13.2 % 2 Unknown COMPLETE BLOOD COUNT 55801 ABS CINTHYA 2.78 10e9/L 012 Unknown COMPLETE BLOOD COUNT 29068 ABS LYMPH 3.06 10e9/L 012 Unknown COMPLETE BLOOD COUNT 50466 ABS MONO 0.63 10e9/L 012 Unknown COMPLETE BLOOD COUNT 68002 ABS EOS 0.20 10e9/L 012 Unknown COMPLETE BLOOD COUNT 09303 ABS BASO 0.03 10e9/L 012 Unknown COMPLETE BLOOD COUNT 19795 RDW-SD 42.3 fL 2 Unknown GFR CALC 7850541 GFR AA 57.0L ML/MIN 04/01/2011 Unknow n GFR CALC 4004799 GFR NON-AA 47.0L ML/MIN 04/01/2011 Unkno wn THYROID STIMULATING HORMONE 10729 TSH 2.663 uIU/ML 04/01/2011 Unknown FREE T4 87651 FREE T4 1.15 NG/DL 04/01/2011 Unknown THYROID STIMULATING HORMONE 62669 TSH 1.908 uIU/ML 07/06/2010 Unknown COMPLETE BLOOD COUNT 08200 WBC 6.4 10e9/L 07/07/19 11 Unknown COMPLETE BLOOD COUNT 96978 RBC 3.92 10e12/L 2010 Unknown COMPLETE BLOOD COUNT 26788 HGB 11.8 g/dL 1 Unknown COMPLETE BLOOD COUNT 96139 HCT DET 36.0 % 1 Unknown COMPLETE BLOOD COUNT 68996 MCV 91.8 fL 1 Unknown COMPLETE BLOOD COUNT 85863 MCH 30.1 pg 1 Unknown COMPLETE BLOOD COUNT 09505 MCHC 32.8 g/dL 1 Unknown COMPLETE BLOOD COUNT 77354 PLT 176 10e9/L 07/07/19 11 Unknown COMPLETE BLOOD COUNT 46395 MPV 11.4 fL 1 Unknown COMPLETE BLOOD COUNT 87005 CINTHYA % 50.4 % 1 Unknown COMPLETE BLOOD COUNT 30375 LY % 35.5 % 1 Unknown COMPLETE BLOOD COUNT 70532 MON % 10.2 % 1 Unknown COMPLETE BLOOD COUNT 86079 EOS % 3.3 % 1 Unknown COMPLETE BLOOD COUNT 56560 BASO % 0.6 % 1 Unknown COMPLETE BLOOD COUNT 12787 RDW 13.7 % 1 Unknown COMPLETE BLOOD COUNT 95501 ABS CINTHYA 3.23 10e9/L 011 Unknown COMPLETE BLOOD COUNT 77008 ABS LYMPH 2.27 10e9/L 011 Unknown COMPLETE BLOOD COUNT 89155 ABS MONO 0.65 10e9/L 011 Unknown COMPLETE BLOOD COUNT 39146 ABS EOS 0.21 10e9/L 011 Unknown COMPLETE BLOOD COUNT 44992 ABS BASO 0.04 10e9/L 011 Unknown COMPLETE BLOOD COUNT 77578 RDW-SD 45.3 fL 1 Unknown GFR CALC [id number] GFR AA >60 ML/MIN 07/06/2010 Unknown GFR CALC [id number] GFR NON-AA 53.0L ML/MIN 07/06/2010 Unkno wn FREE T4 97774 FREE T4 1.20 NG/DL 07/06/2010 Unknown COMPREHENSIVE METABOLIC 01441 AST 17 U/L 2010 Unknown COMPREHENSIVE METABOLIC 92366 ALT 9 IU/L 2010 Unknown COMPREHENSIVE METABOLIC 70741 BUN 16 MG/DL 2010 Unknown COMPREHENSIVE METABOLIC 58858 ALBUMIN 4.0 GM/DL 2010 Unknown COMPREHENSIVE METABOLIC 50379 CHLORIDE 108 MMOL/L 07/06 Unknown COMPREHENSIVE METABOLIC 31591 BILI TOT 0.5 MG/DL 2010 Unknown COMPREHENSIVE METABOLIC 57320 ALK PHOS 76 U/L 2010 Unknown COMPREHENSIVE METABOLIC 70467 SODIUM 139 MMOL/L 07/06 Unknown COMPREHENSIVE METABOLIC 99200 CREATININE 1.02 MG/DL 04/2010 Unknown COMPREHENSIVE METABOLIC 04894 CALCIUM 9.2 MG/DL 2010 Unknown COMPREHENSIVE METABOLIC 58945 POTASSIUM 4.5 MMOL/L 07/06 Unknown COMPREHENSIVE METABOLIC 59471 PROT TOT 6.1 GM/DL 2010 Unknown COMPREHENSIVE METABOLIC 75749 Glucose 93 MG/DL 2010 Unknown COMPREHENSIVE METABOLIC 12294 BICARB 26 MMOL/L 2010 Unknown COMPREHENSIVE METABOLIC 99193 ANION GAP 5 MEQ/L 2010 Unknown LIPID GROUP 78689 HDL TEST 46 MG/DL 07/06/2010 Unknown LIPID GROUP 73885 TRIG 102 MG/DL 07/06/2010 Unknown LIPID GROUP 46332 TEST LDL 88 MG/DL 07/06/2010 Unknown LIPID GROUP 36022 CHOL 154 MG/DL 07/06/2010 Unknown LIPID GROUP 08731 RCHOL/HDL 3.35 RATIO 07/06/2010 Unknow n Procedures Procedure Codes Date ROUTINE VENIPUNCTURE CPT-4: 78988 03/13/2019 ASSAY THYROID STIM HORMONE CPT-4: 84851 03/13/2019 COMPLETE CBC W/AUTO DIFF WBC CPT-4: 31450 03/13/2019 COMPREHEN METABOLIC PANEL CPT-4: 52123 03/13/2019 ROUTINE VENIPUNCTURE CPT-4: 05143 01/23/2019 LIPID PANEL CPT-4: 31611 01/23/2019 FLU VACC PRSV FREE INC ANTIG 65 AND OLDER CPT-4: 63633 12/26/2018 FLU VACC PRSV FREE INC ANTIG 65 AND OLDER CPT-4: 74164 12/26/2018 ADMIN INFLUENZA VIRUS VAC CPT-4: G0008 12/26/2018 COMPREHEN METABOLIC PANEL CPT-4: 64205 12/15/2018 ROUTINE VENIPUNCTURE CPT-4: 73960 12/15/2018 ROUTINE VENIPUNCTURE CPT-4: 93263 08/14/2018 ASSAY THYROID STIM HORMONE CPT-4: 40911 08/14/2018 COMPREHEN METABOLIC PANEL CPT-4: 28162 08/14/2018 COMPLETE CBC W/AUTO DIFF WBC CPT-4: 57805 08/14/2018 URINALYSIS NONAUTO W/O SCOPE CPT-4: 11661 05/10/2018 URINE CULTURE/ COLONY COUNT CPT-4: 02045 05/10/2018 URINE CULTURE/ COLONY COUNT CPT-4: 21055 12/06/2017 ROUTINE VENIPUNCTURE CPT-4: 51972 11/30/2017 ASSAY OF FREE THYROXINE CPT-4: 12316 11/30/2017 ASSAY THYROID STIM HORMONE CPT-4: 02240 11/30/2017 COMPLETE CBC W/AUTO DIFF WBC CPT-4: 15407 11/30/2017 METABOLIC PANEL TOTAL CA CPT-4: 41913 11/30/2017 FLU VACC PRSV FREE INC ANTIG 65 AND OLDER CPT-4: 01908 11/22/2017 ASSAY, GLUCOSE, BLOOD QUANT CPT-4: 69914 11/22/2017 ADMIN INFLUENZA VIRUS VAC CPT-4: G0008 11/22/2017 ROUTINE VENIPUNCTURE CPT-4: 64889 09/27/2017 COMPREHEN METABOLIC PANEL CPT-4: 30873 09/27/2017 COMPLETE CBC W/AUTO DIFF WBC CPT-4: 35460 09/27/2017 A1C HPLC CPT-4: 23200 09/27/2017 ASSAY OF TROPONIN QUANT CPT-4: 02439 09/27/2017 LIPID PANEL CPT-4: 69483 09/27/2017 THER/PROPH/DIAG INJ SC/IM CPT-4: 41694 05/30/2017 TRIAMCINOLONE ACET INJ NOS CPT-4: J3301 05/30/2017 URINALYSIS NONAUTO W/O SCOPE CPT-4: 94814 04/18/2017 URINE CULTURE/ COLONY COUNT CPT-4: 09525 04/18/2017 FLU VACC PRSV FREE INC ANTIG 65 AND OLDER CPT-4: 21315 12/10/2016 ADMIN INFLUENZA VIRUS VAC CPT-4: G0008 12/10/2016 ROUTINE VENIPUNCTURE CPT-4: 92117 11/01/2016 COMPREHEN METABOLIC PANEL CPT-4: 02729 11/01/2016 COMPLETE CBC W/AUTO DIFF WBC CPT-4: 49368 11/01/2016 LIPID PANEL CPT-4: 84000 11/01/2016 A1C HPLC CPT-4: 82014 11/01/2016 ASSAY THYROID STIM HORMONE CPT-4: 38414 11/01/2016 ROUTINE VENIPUNCTURE CPT-4: 16622 05/13/2016 ASSAY THYROID STIM HORMONE CPT-4: 96470 05/13/2016 COMPREHEN METABOLIC PANEL CPT-4: 59126 05/13/2016 COMPLETE CBC W/AUTO DIFF WBC CPT-4: 06196 05/13/2016 A1C HPLC CPT-4: 39306 05/13/2016 FLU VACC PRSV FREE INC ANTIG 65 AND OLDER CPT-4: 61491 12/12/2015 ADMIN INFLUENZA VIRUS VAC CPT-4: G0008 12/12/2015 ROUTINE VENIPUNCTURE CPT-4: 51297 11/25/2015 ASSAY OF FREE THYROXINE CPT-4: 43758 11/25/2015 ASSAY THYROID STIM HORMONE CPT-4: 31752 11/25/2015 COMPREHEN METABOLIC PANEL CPT-4: 28635 11/25/2015 COMPLETE CBC W/AUTO DIFF WBC CPT-4: 70747 11/25/2015 LIPID PANEL CPT-4: 07595 11/25/2015 A1C HPLC CPT-4: 32491 11/25/2015 URINALYSIS NONAUTO W/O SCOPE CPT-4: 67467 05/21/2015 ROUTINE VENIPUNCTURE CPT-4: 25242 02/19/2015 METABOLIC PANEL TOTAL CA CPT-4: 81753 02/19/2015 PRESCRIP TRANSMIT VIA ERX SY CPT-4: G8553 02/19/2015 FLU VACC PRSV FREE INC ANTIG 65 AND OLDER CPT-4: 05381 12/20/2014 ADMIN INFLUENZA VIRUS VAC CPT-4: G0008 12/20/2014 URINALYSIS NONAUTO W/O SCOPE CPT-4: 05560 11/19/2014 URINE CULTURE/ COLONY COUNT CPT-4: 80613 11/19/2014 ROUTINE VENIPUNCTURE CPT-4: 64802 11/14/2014 ASSAY OF FREE THYROXINE CPT-4: 34342 11/14/2014 ASSAY THYROID STIM HORMONE CPT-4: 27328 11/14/2014 COMPREHEN METABOLIC PANEL CPT-4: 06234 11/14/2014 COMPLETE CBC W/AUTO DIFF WBC CPT-4: 03863 11/14/2014 LIPID PANEL CPT-4: 94421 11/14/2014 A1C HPLC CPT-4: 36977 11/14/2014 CERUM REMOVAL CPT-4: 33254 09/27/2014 PRESCRIP TRANSMIT VIA ERX SY CPT-4: G8553 07/11/2014 FLUZONE, 5ML (Medicare) CPT-4: Q2038 12/21/2013 ADMIN INFLUENZA VIRUS VAC CPT-4: G0008 12/21/2013 PRESCRIP TRANSMIT VIA ERX SY CPT-4: G8553 10/17/2013 PRESCRIP TRANSMIT VIA ERX SY CPT-4: G8553 09/24/2013 PRESCRIP TRANSMIT VIA ERX SY CPT-4: G8553 05/31/2013 ROUTINE VENIPUNCTURE CPT-4: 10737 03/28/2013 ASSAY OF FREE THYROXINE CPT-4: 35410 03/28/2013 ASSAY THYROID STIM HORMONE CPT-4: 16713 03/28/2013 COMPREHEN METABOLIC PANEL CPT-4: 26571 03/28/2013 COMPLETE CBC W/AUTO DIFF WBC CPT-4: 28989 03/28/2013 LIPID PANEL CPT-4: 42440 03/28/2013 A1C HPLC CPT-4: 80097 03/28/2013 VITAMIN B 12 FOLIC ACID CPT-4: 55282|78349 03/28/2013 PRESCRIP TRANSMIT VIA ERX SY CPT-4: G8553 03/26/2013 PRESCRIP TRANSMIT VIA ERX SY CPT-4: G8553 12/19/2012 FLUZONE, 5ML (Medicare) CPT-4: Q2038 11/27/2012 ADMIN INFLUENZA VIRUS VAC CPT-4: G0008 11/27/2012 PRESCRIP TRANSMIT VIA ERX SY CPT-4: G8553 10/04/2012 PRESCRIP TRANSMIT VIA ERX SY CPT-4: G8553 07/14/2012 ROUTINE VENIPUNCTURE CPT-4: 32785 02/23/2012 ASSAY OF FREE THYROXINE CPT-4: 19463 02/23/2012 ASSAY THYROID STIM HORMONE CPT-4: 74861 02/23/2012 COMPREHEN METABOLIC PANEL CPT-4: 44644 02/23/2012 COMPLETE CBC W/AUTO DIFF WBC CPT-4: 81668 02/23/2012 LIPID PANEL CPT-4: 45249 02/23/2012 A1C GLYCOSYLATED HEMOGLOBIN TEST CPT-4: 45224 012 CERUM REMOVAL CPT-4: 84509 02/22/2012 PRESCRIP TRANSMIT VIA ERX SY CPT-4: G8553 02/22/2012 PRESCRIP TRANSMIT VIA ERX SY CPT-4: G8553 12/15/2011 FLUZONE, 5ML (Medicare) CPT-4: Q2038 12/02/2011 ADMIN INFLUENZA VIRUS VAC CPT-4: G0008 12/02/2011 ASSAY, GLUCOSE, BLOOD QUANT CPT-4: 18350 09/21/2011 URINALYSIS NONAUTO W/O SCOPE CPT-4: 03581 09/16/2011 URINE CULTURE/ COLONY COUNT CPT-4: 17739 09/16/2011 ROUTINE VENIPUNCTURE CPT-4: 58232 09/15/2011 ASSAY OF FREE THYROXINE CPT-4: 42516 09/15/2011 ASSAY THYROID STIM HORMONE CPT-4: 64074 09/15/2011 COMPREHEN METABOLIC PANEL CPT-4: 52129 09/15/2011 COMPLETE CBC W/AUTO DIFF WBC CPT-4: 80711 09/15/2011 LIPID PANEL CPT-4: 54024 09/15/2011 ASSAY OF INSULIN CPT-4: 91256 09/15/2011 A1C GLYCOSYLATED HEMOGLOBIN TEST CPT-4: 91492 012 DRAIN/INJECT JOINT/BURSA CPT-4: 83490 08/16/2011 METHYLPREDNISOLONE 40 MG INJ CPT-4: J1030 08/16/2011 TRIAMCINOLONE ACET INJ NOS CPT-4: J3301 08/16/2011 PRESCRIP TRANSMIT VIA ERX SY CPT-4: G8553 08/03/2011 PRESCRIP TRANSMIT VIA ERX SY CPT-4: G8553 07/26/2011 METHYLPREDNISOLONE 40 MG INJ CPT-4: J1030 06/28/2011 DRAIN/INJECT JOINT/BURSA CPT-4: 34389 06/28/2011 TRIAMCINOLONE ACET INJ NOS CPT-4: J3301 06/28/2011 PRESCRIP TRANSMIT VIA ERX SY CPT-4: G8553 06/28/2011 ROUTINE VENIPUNCTURE CPT-4: 91622 04/01/2011 ASSAY OF FREE THYROXINE CPT-4: 27877 04/01/2011 ASSAY THYROID STIM HORMONE CPT-4: 33387 04/01/2011 COMPREHEN METABOLIC PANEL CPT-4: 59212 04/01/2011 COMPLETE CBC W/AUTO DIFF WBC CPT-4: 63201 04/01/2011 LIPID PANEL CPT-4: 93314 04/01/2011 PRESCRIP TRANSMIT VIA ERX SY CPT-4: G8553 03/31/2011 CERUM REMOVAL CPT-4: 37853 02/11/2011 PRESCRIP TRANSMIT VIA ERX SY CPT-4: G8553 02/11/2011 FLUZONE, 5ML (Medicare) CPT-4: Q2038 12/09/2010 ADMIN INFLUENZA VIRUS VAC CPT-4: G0008 12/09/2010 PRESCRIP TRANSMIT VIA ERX SY CPT-4: G8553 10/15/2010 URINALYSIS NONAUTO W/O SCOPE CPT-4: 98254 09/29/2010 URINE CULTURE/ COLONY COUNT CPT-4: 95616 09/29/2010 CUR TOBACCO NON-USER CPT-4: G8457 09/29/2010 ROUTINE VENIPUNCTURE CPT-4: 58708 07/06/2010 COMPLETE CBC W/AUTO DIFF WBC CPT-4: 45049 07/06/2010 COMPREHEN METABOLIC PANEL CPT-4: 37199 07/06/2010 LIPID PANEL CPT-4: 34907 07/06/2010 ASSAY THYROID STIM HORMONE CPT-4: 73726 07/06/2010 ASSAY OF FREE THYROXINE CPT-4: 15721 07/06/2010 PRESCRIP TRANSMIT VIA ERX SY CPT-4: G8553 07/02/2010 INJ TRIGGER POINT 1/2 MUSCL CPT-4: 70961 04/06/2010 TRIAMCINOLONE ACET INJ NOS CPT-4: J3301 04/06/2010 METHYLPREDNISOLONE 40 MG INJ CPT-4: J1030 04/06/2010 THER/PROPH/DIAG INJ SC/IM CPT-4: 34677 04/01/2010 KETOROLAC TROMETHAMINE INJ CPT-4: J1885 04/01/2010 PRESCRIP TRANSMIT VIA ERX SY CPT-4: G8553 01/22/2010 FLU VACCINE 3 YRS & > IM UP 64 CPT-4: 27015 0 ADMIN INFLUENZA VIRUS VAC CPT-4: G0008 12/10/2009 URINALYSIS NONAUTO W/O SCOPE CPT-4: 99134 12/02/2009 URINE CULTURE/ COLONY COUNT CPT-4: 34789 12/02/2009 PRESCRIP TRANSMIT VIA ERX SY CPT-4: G8553 12/02/2009 THER/PROPH/DIAG INJ SC/IM CPT-4: 15047 09/10/2009 VITAMIN B12 INJECTION CPT-4: J3420 09/10/2009 THER/PROPH/DIAG INJ SC/IM CPT-4: 07116 08/11/2009 VITAMIN B12 INJECTION CPT-4: J3420 08/11/2009 ROUTINE VENIPUNCTURE CPT-4: 22078 06/10/2009 Vital Signs Date Vital 03/13/2019 Blood [...] 1: 142/60 Code: 8480-6 BMI: 38.2 Code: 15068-1 Heart Rate 1: 48 bpm Height: 5'2" Respiratory Rate: 20 bpm SpO2: 98% Tempera ture: 36.7 (C) / 98.1 (F) Weight: 212 lbs 01/10/2018 Blood Pressure 1: 142/64 Code: 8480-6 BMI: 38.5 Code: 66226-1 Heart Rate 1: 52 bpm Height: 5'2" Respiratory Rate: 22 bpm SpO2: 96% Tempera ture: 36.1 (C) / 96.9 (F) Weight: 214 lbs 12/06/2017 Blood Pressure 1: 124/80 Code: 8480-6 BMI: 38.3 Code: 18810-9 Heart Rate 1: 68 bpm Height: 5'2" Respiratory Rate: 20 bpm Temperature: 36 .3 (C) / 97.4 (F) Weight: 213 lbs 11/22/2017 Blood Pressure 1: 132/78 Code: 8480-6 BMI: 37.6 Code: 79174-6 Heart Rate 1: 68 bpm Height: 5'2" Respiratory Rate: 20 bpm SpO2: 97% Tempera ture: 36.8 (C) / 98.2 (F) Weight: 209 lbs 10/20/2017 Blood Pressure 1: 150/76 Code: 8480-6 BMI: 38.5 Code: 82606-6 Heart Rate 1: 64 bpm Height: 5'2" Respiratory Rate: 20 bpm SpO2: 97% Tempera ture: 36.2 (C) / 97.2 (F) Weight: 214 lbs 09/27/2017 Blood Pressure 1: 122/74 Code: 8480-6 BMI: 38.2 Code: 00419-0 Heart Rate 1: 64 bpm Height: 5'2" Respiratory Rate: 18 bpm SpO2: 96% Tempera ture: 35.8 (C) / 96.4 (F) Weight: 212 lbs 08/16/2017 Blood Pressure 1: 124/78 Code: 8480-6 BMI: 37.8 Code: 57076-9 Heart Rate 1: 76 bpm Height: 5'2" Respiratory Rate: 20 bpm Temperature: 36 .8 (C) / 98.3 (F) Weight: 210 lbs 07/07/2017 Blood Pressure 1: 136/70 Code: 8480-6 BMI: 38.0 Code: 30019-0 Heart Rate 1: 68 bpm Height: 5'2" Respiratory Rate: 20 bpm SpO2: 97% Tempera ture: 36.8 (C) / 98.2 (F) Weight: 211 lbs 05/30/2017 Blood Pressure 1: 140/65 Code: 8480-6 Heart Rate 1: 75 bpm Respiratory Rate: 24 bpm SpO2: 95% Temperature: 37.0 (C) / 98.6 (F) We ight: 211 lbs 04/18/2017 Blood Pressure 1: 154/70 Code: 8480-6 BMI: 37.6 Code: 60944-6 Heart Rate 1: 76 bpm Height: 5'2" Respiratory Rate: 20 bpm SpO2: 98% Tempera ture: 36.9 (C) / 98.5 (F) Weight: 209 lbs 10/25/2016 Blood Pressure 1: 156/70 Code: 8480-6 BMI: 37.1 Code: 31574-4 Heart Rate 1: 72 bpm Height: 5'2" Respiratory Rate: 20 bpm SpO2: 97% Tempera ture: 37.0 (C) / 98.6 (F) Weight: 206 lbs 09/20/2016 Blood Pressure 1: 152/78 Code: 8480-6 BMI: 36.8 Code: 03793-2 Heart Rate 1: 78 bpm Height: 5'2" Respiratory Rate: 20 bpm SpO2: 98% Tempera ture: 36.1 (C) / 97.0 (F) Weight: 204 lbs 05/12/2016 Blood Pressure 1: 142/70 Code: 8480-6 BMI: 36.9 Code: 12005-1 Heart Rate 1: 64 bpm Height: 5'2" [...] 1: 122/64 Code: 8480-6 BMI: 39.1 Code: 99625-0 Heart Rate 1: 76 bpm Height: 5'2" Respiratory Rate: 20 bpm Temperature: 36 .8 (C) / 98.2 (F) Weight: 217 lbs 05/21/2015 Blood Pressure 1: 144/70 Code: 8480-6 BMI: 39.4 Code: 38867-3 Heart Rate 1: 76 bpm Height: 5'2" Respiratory Rate: 20 bpm Temperature: 36 .6 (C) / 97.9 (F) Weight: 219 lbs 02/19/2015 Blood Pressure 1: 152/60 Code: 8480-6 BMI: 39.6 Code: 53581-9 Heart Rate 1: 84 bpm Height: 5'2" Respiratory Rate: 20 bpm Temperature: 37 .0 (C) / 98.6 (F) Weight: 220 lbs 11/13/2014 Blood Pressure 1: 146/76 Code: 8480-6 BMI: 39.8 Code: 85989-9 Heart Rate 1: 88 bpm Height: 5'2" Respiratory Rate: 20 bpm Temperature: 37 .0 (C) / 98.6 (F) Weight: 221 lbs 09/27/2014 Blood Pressure 1: 132/70 Code: 8480-6 BMI: 39.1 Code: 02398-4 Heart Rate 1: 88 bpm Height: 5'2" Respiratory Rate: 20 bpm Temperature: 36 .4 (C) / 97.6 (F) Weight: 217 lbs 07/11/2014 Blood Pressure 1: 132/66 Code: 8480-6 BMI: 39.9 Code: 20995-1 Heart Rate 1: 72 bpm Height: 5'2" Respiratory Rate: 20 bpm Temperature: 36 .9 (C) / 98.4 (F) Weight: 218 lbs 05/23/2014 Blood Pressure 1: 136/80 Code: 8480-6 Heart Rate 1: 76 bpm Respiratory Rate: 20 bpm Temperature: 36.7 (C) / 98.0 (F) Weight: 224 lbs 03/20/2014 Blood Pressure 1: 134/78 Code: 8480-6 BMI: 39.7 Code: 87401-1 Heart Rate 1: 84 bpm Height: 5'2" Respiratory Rate: 20 bpm Temperature: 36 .7 (C) / 98.0 (F) Weight: 217 lbs 10/17/2013 Blood Pressure 1: 146/78 Code: 8480-6 BMI: 39.5 Code: 77971-7 Heart Rate 1: 82 bpm Height: 5'2" Respiratory Rate: 18 bpm Temperature: 35 .6 (C) / 96.1 (F) Weight: 216 lbs 09/24/2013 Blood Pressure 1: 134/70 Code: 8480-6 BMI: 37.9 Code: 86470-7 Heart Rate 1: 80 bpm Height: 5'3" Respiratory Rate: 20 bpm Temperature: 36 .8 (C) / 98.2 (F) Weight: 214 lbs 05/31/2013 Blood Pressure 1: 132/70 Code: 8480-6 BMI: 37.6 Code: 76137-5 Heart Rate 1: 80 bpm Height: 5'3" Respiratory Rate: 20 bpm Temperature: 36 .8 (C) / 98.3 (F) Weight: 212 lbs 03/26/2013 Blood Pressure 1: 116/74 Code: 8480-6 Heart Rate 1: 68 bpm Respiratory Rate: 20 bpm Temperature: 36.2 (C) / 97.1 (F) Weight: 212 lbs 12/19/2012 Blood Pressure 1: 132/82 Code: 8480-6 BMI: 37.4 Code: 11362-4 Heart Rate 1: 76 bpm Height: 5'3" Respiratory Rate: 20 bpm Temperature: 36 .7 (C) / 98.0 (F) Weight: 211 lbs 12/04/2012 Blood Pressure 1: 130/76 Code: 8480-6 He art Rate 1: 78 bpm 11/27/2012 Blood Pressure 1: 140/82 Code: 8480-6 BMI: 36.8 Code: 42062-3 Heart Rate 1: 66 bpm Height: 5'3" Respiratory Rate: 20 bpm Temperature: 36 .1 (C) / 96.9 (F) Weight: 208 lbs 10/04/2012 Blood Pressure 1: 138/80 Code: 8480-6 BMI: 36.4 Code: 65272-0 Heart Rate 1: 72 bpm Height: 5'4" Respiratory Rate: 20 bpm Temperature: 36 .7 (C) / 98.0 (F) Weight: 212 lbs 07/27/2012 Blood Pressure 1: 124/70 Code: 8480-6 BMI: 36.9 Code: 22711-7 Heart Rate 1: 60 bpm Height: 5'4" Temperature: 36.1 (C) / 97.0 (F) Weight: 215 lbs 07/14/2012 Blood Pressure 1: 132/86 Code: 8480-6 BMI: 36.9 Code: 55642-1 Heart Rate 1: 76 bpm Height: 5'4" Respiratory Rate: 20 bpm Temperature: 36 .8 (C) / 98.2 (F) Weight: 215 lbs 06/08/2012 Blood Pressure 1: 134/82 Code: 8480-6 BMI: 36.6 Code: 60304-9 Heart Rate 1: 72 bpm Height: 5'4" Respiratory Rate: 20 bpm Temperature: 36 .3 (C) / 97.4 (F) Weight: 213 lbs 02/22/2012 Blood Pressure 1: 142/80 Code: 8480-6 BMI: 37.1 Code: 16730-4 Heart Rate 1: 76 bpm Height: 5'4" Respiratory Rate: 20 bpm Temperature: 36 .8 (C) / 98.3 (F) Weight: 216 lbs 12/28/2011 Blood Pressure 1: 128/68 Code: 8480-6 BMI: 37.6 Code: 25268-3 Heart Rate 1: 72 bpm Height: 5'4" [...] 1: 128/78 Code: 8480-6 BMI: 38.1 Code: 12624-4 Heart Rate 1: 84 bpm Height: 5'4" Respiratory Rate: 20 bpm Temperature: 36 .9 (C) / 98.4 (F) Weight: 222 lbs 08/16/2011 Blood Pressure 1: 138/80 Code: 8480-6 BMI: 37.9 Code: 17396-0 Heart Rate 1: 74 bpm Height: 5'4" Temperature: 36.1 (C) / 97.0 (F) Weight: 221 lbs 08/03/2011 Blood Pressure 1: 126/78 Code: 8480-6 BMI: 38.4 Code: 44906-1 Heart Rate 1: 72 bpm Height: 5'4" Respiratory Rate: 20 bpm Temperature: 36 .7 (C) / 98.0 (F) Weight: 224 lbs 07/26/2011 Blood Pressure 1: 138/72 Code: 8480-6 BMI: 38.4 Code: 99478-6 Heart Rate 1: 72 bpm Height: 5'4" Respiratory Rate: 20 bpm Temperature: 36 .6 (C) / 97.9 (F) Weight: 224 lbs 06/28/2011 Blood Pressure 1: 122/78 Code: 8480-6 BMI: 38.8 Code: 51087-1 Heart Rate 1: 88 bpm Height: 5'4" Respiratory Rate: 20 bpm Temperature: 36 .6 (C) / 97.8 (F) Weight: 226 lbs 03/31/2011 Blood Pressure 1: 116/60 Code: 8480-6 BMI: 38.1 Code: 55185-4 Heart Rate 1: 92 bpm Height: 5'4" Respiratory Rate: 20 bpm Temperature: 36 .8 (C) / 98.2 (F) Weight: 222 lbs 02/11/2011 Blood Pressure 1: 118/62 Code: 8480-6 BMI: 37.9 Code: 78930-4 Heart Rate 1: 80 bpm Height: 5'4" Temperature: 36.5 (C) / 97.7 (F) Weight: 221 lbs 10/15/2010 Blood Pressure 1: 132/70 Code: 8480-6 Heart Rate 1: 84 bpm Respiratory Rate: 20 bpm Temperature: 36.7 (C) / 98.0 (F) Weight: 221 lbs 09/29/2010 Blood Pressure 1: 114/72 Code: 8480-6 BMI: 37.6 Code: 96552-1 Heart Rate 1: 76 bpm Height: 5'4" [...] 1: 120/70 Code: 8480-6 BMI: 38.3 Code: 00666-7 Heart Rate 1: 88 bpm Height: 5'5" [...] but had more that day. While at [employer] began to feel very ill and became [...] 09/27/2014 pain, limb 07/11/2014 follow up 05/23/2014 [facility] fwup high blood pressure 03/20/2014 [...] 06/09/2009 Encounters Encounter Performer Location Codes Date ([id number]) OFFICE/OUTPATIENT VISIT EST Diagnosis: Essential hypertension[ICD10: I10] Diagnosis: Palpitations[ICD10: R00.2] Diagnosis: Stress reaction[ICD10: F43.0] Vikki GUAMAN [employer] CPT-4: 43127 03/13/2019 ([id number]) NURSE/OUTPATIENT VISIT EST Diagnosis: Mixed hyperlipidemia[ICD10: E78.2] Vikki GUAMAN [employer] CPT-4: 37100 01/23/2019 ([id number]) NURSE/OUTPATIENT VISIT EST Diagnosis: FLU VACCINE[ICD10: Z23] Vikki BALL [employer] CPT-4: 08534 12/26/2018 ([id number]) NURSE/OUTPATIENT VISIT EST Diagnosis: Chronic kidney disease, stage 1[ICD10: N18.1] Vikki GUAMAN [employer] CPT-4: 33609 12/15/2018 ([id number]) OFFICE/OUTPATIENT VISIT EST Diagnosis: Acute serous otitis media, left ear[ICD10: H65.02] Jennifer GUAMAN [employer] CPT-4: 35522 11/07/2018 ([id number]) OFFICE/OUTPATIENT VISIT EST Diagnosis: Essential (primary) hypertension[ICD10: I10] Diagnosis: 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] Diagnosis: Hypoglycemia, unspecified[ICD10: E16.2] Diagnosis: Other fatigue[ICD10: R53.83] Diagnosis: Urinary tract infection, site not specified[ICD10: N39.0] Vikki GUAMAN [employer] CPT-4: 51510 08/14/2018 ([id number]) OFFICE/OUTPATIENT VISIT EST Diagnosis: Essential (primary) hypertension[ICD10: I10] Diagnosis: Gastro-esophageal reflux disease without esophagitis[ICD10: K21.9] Diagnosis: Urinary tract infection, site not specified[ICD10: N39.0] Vikki GUAMAN DO [facility] CPT-4: 00953 05/10/2018 ([id number]) OFFICE/OUTPATIENT VISIT EST Diagnosis: Gastro-esophageal reflux disease without esophagitis[ICD10: K21.9] Diagnosis: Epigastric pain[ICD10: R10.13] Vikki GUAMAN DO [facility] CPT-4: 16615 02/14/2018 ([id number]) OFFICE/OUTPATIENT VISIT EST Diagnosis: 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] Diagnosis: Essential (primary) hypertension[ICD10: I10] Diagnosis: Generalized anxiety disorder[ICD10: F41.1] Diagnosis: Gastro-esophageal reflux disease without esophagitis[ICD10: K21.9] Vikki GUAMAN DO [facility] CPT-4: 57019 01/10/2018 OFFICE/OUTPATIENT VISIT EST Diagnosis: Gastro-esophageal reflux disease without esophagitis[ICD10: K21.9] Diagnosis: Palpitations[ICD10: R00.2] Diagnosis: Urinary tract infection, site not specified[ICD10: N39.0] Diagnosis: Generalized anxiety disorder[ICD10: F41.1] Vikki GUAMAN Fwd: [employer] [facility] CPT-4: 45511 12/06/2017 ([id number]) NURSE/OUTPATIENT VISIT EST Diagnosis: 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] Diagnosis: Hypoglycemia, unspecified[ICD10: E16.2] Diagnosis: Dizziness and giddiness[ICD10: R42] Diagnosis: Occlusion and stenosis of bilateral carotid arteries[ICD10: I65.23] Vikki GUAMAN DO [facility] CPT-4: 12674 11/30/2017 OFFICE/OUTPATIENT VISIT EST Diagnosis: Epigastric pain[ICD10: R10.13] Diagnosis: Generalized anxiety disorder[ICD10: F41.1] Diagnosis: FLU VACCINE[ICD10: Z23] Vikki BALL Fwd: [employer] [facility] CPT-4: 56881 11/22/2017 ([id number]) OFFICE/OUTPATIENT VISIT EST Diagnosis: Essential (primary) hypertension[ICD10: I10] Diagnosis: Hypoglycemia, unspecified[ICD10: E16.2] Diagnosis: Gastro-esophageal reflux disease without esophagitis[ICD10: K21.9] Vikki Ciscobhavya PIKE Alyssa GUAMAN DO [facility] CPT-4: 19450 10/20/2017 ([id number]) OFFICE/OUTPATIENT VISIT EST Diagnosis: Dizziness and giddiness[ICD10: R42] Jennifer GUAMAN DO [facility] CPT-4: 63235 09/27/2017 ([id number]) OFFICE/OUTPATIENT VISIT EST Diagnosis: Cervicalgia[ICD10: M54.2] Diagnosis: Other spondylosis with radiculopathy, cervical region[ICD10: M47.22] Vikki Ciscobhavya PIKE AlejandraSujata GLENIS CHIN [facility] CPT-4: 40291 08/16/2017 ([id number]) OFFICE/OUTPATIENT VISIT EST Diagnosis: Hypoglycemia, unspecified[ICD10: E16.2] Diagnosis: Other spondylosis with radiculopathy, cervical region[ICD10: M47.22] Diagnosis: Vertigo of central origin, 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] Diagnosis: 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] Vikki Ciscofunmilayosakshi CAIOAKUA ALEXNE AlejandraSujata GLENIS Fwd: [employer] [facility] CPT-4: 18398 07/07/2017 ([id number]) OFFICE/OUTPATIENT VISIT EST Diagnosis: Benign paroxysmal vertigo, bilateral[ICD10: H81.13] Diagnosis: Otalgia, bilateral[ICD10: H92.03] Jennifer GUAMAN Fwd: Power [facility] CPT-4: 47249 05/30/2017 ([id number]) OFFICE/OUTPATIENT VISIT EST Diagnosis: Low back pain[ICD10: M54.5] Diagnosis: Radiculopathy, lumbosacral region[ICD10: M54.17] Diagnosis: Left lower quadrant pain[ICD10: R10.32] Vikki Shah GLENIS Fwd: Power [facility] CPT-4: 41951 04/18/2017 ([id number]) OFFICE/OUTPATIENT VISIT EST Diagnosis: FLU VACCINE[ICD10: Z23] Vikki PIKE AlejandraSujata 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PT[facility]: 98563 10/25/2016 ([id number]) OFFICE/OUTPATIENT VISIT EST Diagnosis: Left lower quadrant pain[ICD10: R10.32] Diagnosis: Low back pain[ICD10: M54.5] Vikki RUBI [facility] CPT-4: 44862 09/20/2016 ([id number]) OFFICE/OUTPATIENT VISIT EST Diagnosis: Mixed hyperlipidemia[ICD10: E78.2] Diagnosis: Essential (primary) hypertension[ICD10: I10] Diagnosis: Hypoglycemia, unspecified[ICD10: E16.2] [facility]PT[facility]: 50727 05/13/2016 ([id number]) OFFICE/OUTPATIENT VISIT EST Diagnosis: Impaired fasting glucose[ICD10: R73.01] Diagnosis: Mastodynia[ICD10: N64.4] Diagnosis: Mixed hyperlipidemia[ICD10: E78.2] Diagnosis: Essential (primary) hypertension[ICD10: I10] Diagnosis: Other fatigue[ICD10: R53.83] [facility]PT[facility]: 08864 05/12/2016 ([id number]) OFFICE/OUTPATIENT VISIT EST Diagnosis: Acute upper respiratory infection, unspecified[ICD10: J06.9] Yue Moya VIKKI 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] Diagnosis: Impaired fasting glucose[ICD10: R73.01] Vikki GUAMAN DO [facility] CPT-4: 15201 11/25/2015 ([id number]) OFFICE/OUTPATIENT VISIT EST Diagnosis: Constipation, unspecified[ICD10: K59.00] Vikki GUAMAN DO [facility] CPT-4: 81445 08/26/2015 ([id number]) OFFICE/OUTPATIENT VISIT EST Diagnosis: Essential (primary) hypertension[ICD10: I10] Diagnosis: Mixed hyperlipidemia[ICD10: E78.2] Diagnosis: Chronic kidney disease, stage 1[ICD10: N18.1] Vikki GUAMAN DO [facility] CPT-4: 48892 05/21/2015 ([id number]) OFFICE/OUTPATIENT VISIT EST Diagnosis: Muscle weakness (generalized)[ICD10: M62.81] Diagnosis: Dizziness and giddiness[ICD10: R42] Diagnosis: Essential (primary) hypertension[ICD10: I10] Diagnosis: History of falling[ICD10: Z91.81] Vikki Ciscofunmilayosakshi ROMMELJEANAN GUAMAN DO [facility] CPT-4: 61760 02/19/2015 ([id number]) OFFICE/OUTPATIENT VISIT EST Diagnosis: FLU VACCINE[ICD10: Z23] Vikki CORTEZLINE Alyssa BALL DO [facility] CPT-4: 56360 12/20/2014 ([id number]) OFFICE/OUTPATIENT VISIT EST Diagnosis: Acute renal failure[ICD9: 584.9] Diagnosis: POLYURIA[ICD9: 788.42] Vikki CORTEZLINE Alyssa Rees [facility] CPT-4: 78896 11/19/2014 ([id number]) OFFICE/OUTPATIENT VISIT EST Diagnosis: HYPERLIPIDEMIA NEC/NOS[ICD9: 272.4] Diagnosis: HYPERTENSION[ICD9: 401.9] Diagnosis: CAD[ICD9: 414.00] Diagnosis: Hyperglycemia[ICD9: 790.29] Diagnosis: MALAISE AND FATIGUE[ICD9: 780.79] Vikki Peckfunmilayosakshi KEARNEYROMMEL Deidra GUAMAN Fwd: Power [facility] CPT-4: 70268 11/14/2014 ([id number]) OFFICE/OUTPATIENT VISIT EST Diagnosis: MALAISE AND FATIGUE[ICD9: 780.79] Diagnosis: HYPOGLYCEMIA[ICD9: 251.2] Diagnosis: Grieving[ICD9: 309.0] Diagnosis: ABDOMINAL PAIN[ICD9: 789.00] Ivkki Ciscofunmilayosakshi CORTEZVIKKI AlejandraSujata GLENIS [facility] CPT-4: 92205 11/13/2014 OFFICE/OUTPATIENT VISIT EST Diagnosis: CERUMEN IMPACTION[ICD9: 380.4] Diagnosis: EUSTACHIAN TUBE DYSFUNCTION[ICD9: 381.81] Jesseniasa Francis VIKKI Alyssa GUAMAN [facility] CPT-4: 96970 09/27/2014 ([id number]) OFFICE/OUTPATIENT VISIT EST Diagnosis: Leg pain[ICD9: 729.5] Diagnosis: SUPERFIC PHLEBITIS-LEG[ICD9: 451.0] Vikki NIÑO AlejandraSujata GLENIS Fwd: Power [facility] CPT-4: 73824 07/11/2014 ([id number]) OFFICE/OUTPATIENT VISIT EST Diagnosis: Thoracic back pain[ICD9: 724.1] Diagnosis: SPASM OF MUSCLE[ICD9: 728.85] Vikki Ciscofunmilayosakshi CORTEZVIKKI AlejandraSujata GLENIS [facility] CPT-4: 61770 05/23/2014 ([id number]) OFFICE/OUTPATIENT VISIT EST Diagnosis: DIZZINESS/VERTIGO[ICD9: 780.4] Diagnosis: Benign positional vertigo[ICD9: 386.11] Diagnosis: HYPERTENSION[ICD9: 401.9] Diagnosis: Suspicious nevus[ICD9: 238.2] Vikki GUAMAN [facility] CPT-4: 67862 03/20/2014 ([id number]) OFFICE/OUTPATIENT VISIT EST Diagnosis: FLU VACCINE[ICD10: Z23] Vikki BALL [facility] CPT-4: 48511 12/21/2013 OFFICE/OUTPATIENT VISIT EST Diagnosis: SINUSITIS, ACUTE[ICD9: 461.9] Diagnosis: EUSTACHIAN TUBE DYSFUNCTION[ICD9: 381.81] Jessenia GUAMAN [facility] CPT-4: 99762 10/17/2013 ([id number]) OFFICE/OUTPATIENT VISIT EST Diagnosis: DIZZINESS/VERTIGO[ICD9: 780.4] Diagnosis: HYPERTENSION[ICD9: 401.9] [facility]PT[facility]: 17381 09/24/2013 ([id number]) OFFICE/OUTPATIENT VISIT EST Diagnosis: HYPERTENSION[ICD9: 401.9] Diagnosis: MALAISE AND FATIGUE[ICD9: 780.79] Diagnosis: SINUSITIS, ACUTE[ICD9: 461.9] Vikki GUAMAN [facility] CPT-4: 70654 05/31/2013 ([id number]) OFFICE/OUTPATIENT VISIT EST Diagnosis: HYPERLIPIDEMIA NEC/NOS[ICD9: 272.4] Diagnosis: HYPERTENSION[ICD9: 401.9] Diagnosis: B12 DEFIC ANEMIA NEC[ICD9: 281.1] Diagnosis: HYPOGLYCEMIA[ICD9: 251.2] Vikki MARTINEZ [facility] CPT-4: 52856 03/28/2013 OFFICE/OUTPATIENT VISIT EST Diagnosis: COUGH[ICD9: 786.2] Jessenia GUAMAN [facility] CPT-4: 02954 03/26/2013 OFFICE/OUTPATIENT VISIT EST Diagnosis: COUGH[ICD9: 786.2] Diagnosis: URI, ACUTE[ICD9: 465.9] Jessenia BALL [facility] CPT-4: 33179 12/19/2012 ([id number]) OFFICE/OUTPATIENT VISIT EST Diagnosis: HYPERTENSION[ICD9: 401.9] Diagnosis: CEPHALGIA[ICD9: 784.0] Diagnosis: ANXIETY STATE NOS[ICD9: 300.00] Diagnosis: FLU VACCINE[ICD9: V04.81] Vikki MARTINEZ [facility] CPT-4: 34709 11/27/2012 ([id number]) OFFICE/OUTPATIENT VISIT EST Diagnosis: DIZZINESS/VERTIGO[ICD9: 780.4] Diagnosis: SINUSITIS, ACUTE[ICD9: 461.9] Diagnosis: Benign positional vertigo[ICD9: 386.11] Vikki KEELAWRENCE AlejandraSujata [facility] C[facility]: 72765 10/04/2012 OFFICE/OUTPATIENT VISIT EST Diagnosis: OTITIS MEDIA NOS[ICD9: 382.9] Vikki CORTEZLINE AlejandraSujata [facility] CPT-[facility]: 36781 07/27/2012 OFFICE/OUTPATIENT VISIT EST Diagnosis: Perforation of ear drum[ICD9: 384.20] Diagnosis: SINUSITIS, ACUTE[ICD9: 461.9] Vikki CORTEZLINE AlejandraSujata [facility] CPT-4: 18760 07/14/2012 ([id number]) OFFICE/OUTPATIENT VISIT EST Diagnosis: Mastalgia[ICD9: 611.71] Vikki RobertsSujata [facility] CPT-4: 64815 06/08/2012 ([id number]) OFFICE/OUTPATIENT VISIT EST Diagnosis: HYPERLIPIDEMIA NEC/NOS[ICD9: 272.4] Diagnosis: HYPERTENSION[ICD9: 401.9] Diagnosis: DIZZINESS/VERTIGO[ICD9: 780.4] Diagnosis: Hyperglycemia[ICD9: 790.29] Diagnosis: MALAISE AND FATIGUE[ICD9: 780.79] Vikki Ciscobhavya Conde AlejandraSujata [facility] CPT-4: 88473 02/23/2012 ([id number]) OFFICE/OUTPATIENT VISIT EST Diagnosis: EUSTACHIAN TUBE DYSFUNCTION[ICD9: 381.81] Diagnosis: DIZZINESS/VERTIGO[ICD9: 780.4] Diagnosis: ABDOMINAL PAIN[ICD9: 789.00] Diagnosis: GERD[ICD9: 530.81] Diagnosis: CERUMEN IMPACTION[ICD9: 380.4] Vikki GUAMAN [facility] CPT-4: 97268 02/22/2012 OFFICE/OUTPATIENT VISIT EST Diagnosis: ABDOMINAL PAIN[ICD9: 789.00] Diagnosis: DYSPEPSIA[ICD9: 536.8] Vikki Rees [facility] CPT-4: 01127 12/28/2011 ([id number]) OFFICE/OUTPATIENT VISIT EST Diagnosis: ABDOMINAL PAIN[ICD9: 789.00] Diagnosis: DYSPEPSIA[ICD9: 536.8] Diagnosis: IBS[ICD9: 564.1] Vikki GUAMAN [facility] CPT - 4: 83494 12/15/2011 OFFICE/OUTPATIENT VISIT EST Diagnosis: DIZZINESS/VERTIGO[ICD9: 780.4] Diagnosis: HYPOGLYCEMIA[ICD9: 251.2] Vikki MARTINEZ [facility] CPT-4: 36322 09/21/2011 ([id number]) OFFICE/OUTPATIENT VISIT EST Diagnosis: URINARY TRACT INFECTION[ICD9: 599.0] Vikki GUAMAN [facility] CPT-4: 97061 09/16/2011 ([id number]) OFFICE/OUTPATIENT VISIT EST Diagnosis: HYPERLIPIDEMIA NEC/NOS[ICD9: 272.4] Diagnosis: HYPERTENSION[ICD9: 401.9] Diagnosis: MALAISE AND FATIGUE[ICD9: 780.79] Diagnosis: DIZZINESS/VERTIGO[ICD9: 780.4] Vikki GUAMAN [facility] CPT-4: 83577 09/15/2011 ([id number]) OFFICE/OUTPATIENT VISIT EST Diagnosis: DIZZINESS/VERTIGO[ICD9: 780.4] Diagnosis: MALAISE AND FATIGUE[ICD9: 780.79] Diagnosis: HYPERTENSION[ICD9: 401.9] Vikki MARTINEZ [facility] CPT-4: 09999 09/13/2011 OFFICE/OUTPATIENT VISIT EST Diagnosis: LUMB/LUMBOSAC DISC DEGEN[ICD9: 722.52] Diagnosis: Radiculopathy of leg[ICD9: 724.4] Diagnosis: 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] Diagnosis: SPINAL ENTHESOPATHY[ICD9: 720.1] Vikki GUAMAN [facility] CPT-4: 41399 08/16/2011 ([id number]) OFFICE/OUTPATIENT VISIT EST Diagnosis: PAIN, LOWER BACK[ICD9: 724.2] Diagnosis: SPASM OF MUSCLE[ICD9: 728.85] Diagnosis: SCIATICA[ICD9: 724.3] Diagnosis: Lumbar degenerative disc disease[ICD9: 722.52] Vikki GUAMAN [facility] CPT-4: 28666 08/03/2011 ([id number]) OFFICE/OUTPATIENT VISIT EST Diagnosis: PAIN IN THORACIC SPINE[ICD9: 724.1] Diagnosis: SPASM OF MUSCLE[ICD9: 728.85] Vikki GUAMAN [facility] CPT-4: 25765 07/26/2011 ([id number]) OFFICE/OUTPATIENT VISIT EST Diagnosis: PAIN, LOWER BACK[ICD9: 724.2] Diagnosis: SPASM OF MUSCLE[ICD9: 728.85] Diagnosis: Sacroiliac dysfunction[ICD9: 739.4] Diagnosis: Lumbar degenerative disc disease[ICD9: 722.52] Vikki GUAMAN [facility] CPT-4: 93858 06/28/2011 OFFICE/OUTPATIENT VISIT EST Diagnosis: MALAISE AND FATIGUE[ICD9: 780.79] Diagnosis: HYPOTENSION[ICD9: 458.9] Diagnosis: CAD[ICD9: 414.00] Vikki GUAMAN [facility] CPT-4: 33078 03/31/2011 OFFICE/OUTPATIENT VISIT EST Diagnosis: SINUSITIS, ACUTE[ICD9: 461.9] Diagnosis: PHARYNGITIS, ACUTE[ICD9: 462] Diagnosis: CERUMEN IMPACTION[ICD9: 380.4] Vikki GUAMAN [facility] CPT-4: 46656 02/11/2011 OFFICE/OUTPATIENT VISIT EST Diagnosis: PAIN IN THORACIC SPINE[ICD9: 724.1] Diagnosis: GERD[ICD9: 530.81] Diagnosis: DIZZINESS/VERTIGO[ICD9: 780.4] Vikki [facility]KE [facility] CPT-4: 48624 10/15/2010 OFFICE/OUTPATIENT VISIT EST Vikki [facility] CPT- 4: 72954 09/29/2010 ([id number]) OFFICE/OUTPATIENT VISIT EST Vikki PATHAK SSujata [facility] CPT-4: 76692 07/02/2010 ([id number]) OFFICE/OUTPATIENT VISIT, EST Diagnosis: PAIN, LOWER BACK[ICD9: 724.2] Vikki PIKE SSujata [facility] CPT-4: 85119 04/06/2010 ([id number]) OFFICE/OUTPATIENT VISIT, EST Vikki CRISOSTOMO S[facility] CPT-4: 84824 04/01/2010 ([id number]) OFFICE/OUTPATIENT VISIT, EST Vikki [facility] CPT-4: 36767 01/22/2010 ([id number]) OFFICE/OUTPATIENT VISIT, EST Vikki [facility] CPT-4: 55894 12/02/2009 ([id number]) OFFICE/OUTPATIENT VISIT, EST Vikki [facility] CPT-4: 04758 10/21/2009 ([id number]) OFFICE/OUTPATIENT VISIT, EST Vikki [facility]O [facility] CPT-4: 42068 09/10/2009 ([id number]) OFFICE/OUTPATIENT VISIT, EST Vikki [facility] CPT-4: 21721 08/11/2009 ([id number]) OFFICE/OUTPATIENT VISIT, EST Vikki [facility] CPT-4: 65689 06/09/2009 Plan of Care Planned Activity Notes Codes Status Date Visit Diagnosis Plan: Palpitations Discussion: Check C BC, CMP, TSH ICD-9 : 785.1 ICD-10 : R00.2 03/13/2019 Visit Diagnosis Plan: Essential hypertension Discussio n: Increase metoprolol to 25mg q AM and 50mg po q pM Recheck 1 week ICD-9 : 401.9 ICD-10 : I10 03/13/2019 Patient Education: metoprolol tartrate- [employer] [facility] [id number] https://[email or web address]/samplemd/resources/getResource/[email or web address] Completed 03/13/2019 Care Plan: X-RAY EXAM NECK SPINE 4/5VWS LOINC : 88187-1 Pending 03/13/2019 Care Plan: X-RAY EXAM THORAC SPINE4/>VW LOINC : 98127-0 Pending 03/13/2019 Appointment: Vikki Guaman WPtel: [address] [place] [address] LAB 01/23/2019 Appointment: Vikki Guaman WPtel: [address] [place] [address] INJECTION 12/26/2018 Patient Education: INFLUENZA VACCINE [facility] Completed 12/26/2018 Appointment: Vikki Guaman WPtel: [address] [place] [address] LAB 12/15/2018 Visit Diagnosis Plan: Acute serous [...] ICD-10 : H65.02 11/07/2018 Appointment: Jennifer Rosario [address] [place] [address] ACUTE ILLNESS 11/07/2018 Visit Diagnosis Plan: Urinary [...] R53.83 08/14/2018 Appointment: Vikki Guaman WPtel: [address] [place], [place] [phone] US FOLLOW UP 08/14/2018 Visit Diagnosis Plan: [...] : K21.9 05/10/2018 Appointment: Vikki Guaman WPtel: [address] [place], [place] [phone] US FOLLOW UP 05/10/2018 Patient Education: metoprolol tartrate- [employer] [facility] [id number] https://www.[employer]/sampleYolto/resources/getResource/61/[email or web address] Completed 05/10/2018 Appointment: Vikki Guaman WPtel: [address] [place], [place] [phone] US CANCELED 04/21/2018 Visit Diagnosis Plan: Gastro-esophageal reflux disease without esophagitis Discussion: Continue protonix and carafate Proceed with updated EGD ICD-9 : 530.81 ICD-10 : K21.9 02/14/2018 Visit Diagnosis Plan: Epigastric pain Discussion: [facility] k CT abdomen/pelvis due to ongoing abdominal pain ICD-9 : 789.06 ICD-10 : R10.13 02/14/2018 Appointment: Vikki Guaman WPtel: [address] [place], [place] [phone] US FOLLOW UP 02/14/2018 Care Plan: CT PELVIS W/O DYE LOINC : 361 08-9 Pending 02/14/2018 Care Plan: CT ABDOMEN W/O DYE LOINC : 36 103-0 Pending 02/14/2018 Care Plan: Referral Order SNOMED-CT : [id number] Pending 02/14/2018 Visit Diagnosis Plan: 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 Discussion: S/P [...] I10 01/10/2018 Appointment: Vikki Guaman [facility]Ptel[facility] [phone] [facility] [id number] FOLLOW UP 01/10/2018 Visit Diagnosis Plan: Gastro-esophageal [...] : R00.2 12/06/2017 Appointment: Vikki Guaman WPtel: [address] [place], [place] [phone] FOLLOW UP 12/06/2017 Patient Education: Patient Medication Summary Completed 12/06/2017 Appointment: Vikki Guaman WPtel: [address] [place], [place] [phone] LAB 11/30/2017 Patient Education: Patient Medication Summary [...] : F41.1 11/22/2017 Appointment: Vikki Guaman WPtel: [address] [place] [address] FOLLOW UP 11/22/2017 Patient Education: Patient Medication [...] : K21.9 10/20/2017 Appointment: Vikki Guaman WPtel: [address] [place] [address] ACUTE ILLNESS 10/20/2017 Patient Education: Patient Medication Summary Completed 10/20/2017 Visit Diagnosis Plan: Dizziness and giddiness Discussi on: blood work to be completed in office including cmp, cbc, troponin to rule out glucose intolerance, infection, dehydration. instructed patient that she needs to see her care clinician sooner than oct and patient requested we contact dr. brown's office. will have front office make appt. patient has carotid doppler annually. ICD-9 : 780.4 ICD-10 : R42 09/27/2017 Appointment: Jennifer Rosario [address] ACUTE ILLNESS 09/27/2017 Patient Education: Patient Medication Summary Completed 09/27/2017 Visit Diagnosis Plan: Cervicalgia Discussion: Complete course of PT since symptoms improved Continue stretching exercises Notify if symptoms return or worsen ICD-9 : 723.1 ICD-10 : M54.2 08/16/2017 Appointment: Vikki Guaman WPtel: [address] [place] [address] FOLLOW UP 08/16/2017 Patient Education: Patient Medication [...] Guaman WPtel: [facility] 07/07/2017 Patient Education: Patient Medication Summary Completed 07/07/2017 Care Plan: MRI NECK SPINE W/O DYE LOINC : 60432-8 Pending 07/07/2017 Visit Diagnosis Plan: Otalgia, bilateral [...] ICD-10 : H81.13 05/30/2017 Appointment: Jennifer Rosario [address] [place] [address] ACUTE ILLNESS 05/30/2017 Patient Education: Patient Medication [...] : M54.17 04/18/2017 Appointment: Vikki Guaman WPtel: [address] [place] [address] ACUTE ILLNESS 04/18/2017 Patient Education: Patient Medication Summary Completed 04/18/2017 Appointment: Vikki Guaman WPtel: [address] [place] [address] US INJECTION 12/10/2016 Patient Education: Patient Medication Summary Completed 12/10/2016 Appointment: Vikki Guaman WPtel: [address] [place] [address] US LAB 11/01/2016 Patient Education: Patient Medication [...] : M51.36 10/25/2016 Appointment: Vikki Guaman WPtel: [address] [place], [place] [phone] [place] FOLLOW UP 10/25/2016 Patient Education: Patient [...] : R10.32 09/20/2016 Appointment: Vikki Guaman WPtel: [address] [place], [place] [phone] ACUTE ILLNESS 09/20/2016 Patient Education: Patient Medication Summary Completed 09/20/2016 Appointment: Vikki Guaman WPtel: [address] [place], [place] [phone] [place] LAB 05/13/2016 Patient Education: Patient Medication [...] : N64.4 05/12/2016 Appointment: Vikki Guaman WPtel: [address] [place], [place] [phone] US 3/ confirmed `sl ACUTE ILLNESS 05/12/2016 Patient Education: Patient Medication Summary Completed 05/12/2016 Care Plan: MAMMOGRAM SCREENING LOINC : 2 0447-5 Pending 05/12/2016 Visit Diagnosis Plan: Acute upper respiratory infectio n, unspecified Discussion: Exam is reassuring Likely viral illness Supportive care reviewed and encouraged Follow up PRN ICD-9 : 465.9 ICD-10 : J06.9 03/18/2016 Appointment: Yue Moya [address] [place] [address] ACUTE ILLNESS 03/18/2016 Patient Education: Patient Medication Summary Completed 03/18/2016 Visit Plan: Supportive care. Rest, Fluid s, Tylenol/Motrin prn fever or bodyaches. Notify if worsening symptoms. 02/06/2016 Appointment: Vikki Guaman WPtel: [address] [place] [address] ACUTE ILLNESS 02/06/2016 Patient Education: Patient Medication Summary Completed 02/06/2016 Appointment: Vikki Guaman WPtel: [address] [place] [address] INJECTION 12/12/2015 Patient Education: Patient Medication Summary Completed 12/12/2015 Appointment: Vikki Guaman WPtel: [address] [place] [address] LAB 11/25/2015 Patient Education: Patient Medication Summary Completed 11/25/2015 Visit Plan: Add miralax daily Use daily probiotic and metamucil and push fluids Notify if worsens/persists 08/26/2015 Appointment: Vikki Guaman WPtel: [address] [place] [address] 08/25/15 confirmed ~sl ACUTE ILLNESS 08/26/2015 Patient Education: Patient Medication Summary Completed 08/26/2015 Visit Plan: No NSAIDs Kidney function di scussed Discussed hydration Monitor lab every 4months so will check CMP, HbA1C next month 05/21/2015 Appointment: Vikki Guaman WPtel: [address] [place] [address] 05/19 confirmed ~sl ACUTE ILLNESS 05/21/2015 Patient Education: Patient Medication Summary Completed 05/21/2015 Visit Plan: Vestibular exercises Refill flonase Strict low Na diet--discussed that needs to read labels Rx for walker with chair given due to muscle weakness/unsteadiness Has carotids and abdominal aorta and legs checked in March Check Chem 7 02/19/2015 Appointment: Vikki Guaman WPtel: [address] [place] [address] 02/18/15 appt confirmed cn FOLLOW UP 02/19 Patient Education: Patient Medication Summary Completed 02/19/2015 Patient Education: Vertigo Completed 1 04/22/2014 Appointment: Vikki Guaman WPtel: [address] [place] [address] US INJECTION 12/20/2014 Patient Education: Patient Medication Summary Completed 12/20/2014 Appointment: Vikki Guaman WPtel: [address] [place] [address] UA 11/19/2014 Patient Education: Patient Medication Summary Completed 11/19/2014 Referral: Edy Cheek WPtel: [facility] [address] Referral Completed 11/18/2014 Appointment: Vikki Guaman WPtel: [address] [place] [address] LAB 11/14/2014 Patient Education: Patient Medication Summary Completed 11/14/2014 Visit Plan: Check CMP, CBC, TSH, Free T4 , B12, Lipids, HbA1C Discussed 6 small meals a day each with protein Would likely benefit from antidepressant Update colonoscopy 11/13/2014 Appointment: Vikki Guaman WPtel: [address] [place], [place] [phone] 11/12/14 confirmed ACUTE ILLNESS 11/13/2014 Patient Education: Patient Medication Summary Completed 11/13/2014 Visit Plan: Cerumen flush with warm wate r and peroxide - good results Resume Nasonex nasal spray daily Recommended Debrox earwax removal drops 09/27/2014 Appointment: Jessenia Francis WPtel: [address] [place], [place] [phone] ACUTE ILLNESS 09/27/2014 Patient Education: Patient Medication Summary Completed 09/27/2014 Visit Plan: Continue aspirin daily Add m eloxicam for 1week [employer] Call on Tuesday07/11/2014 Appointment: Vikki Guaman WPtel: [address] [place] [address] ACUTE ILLNESS 07/11/2014 Patient Education: Patient Medication Summary Completed 07/11/2014 Visit Plan: Been using baclofen at [facility] and has helped some PT for next 2-4weeks 05/23/2014 Appointment: Vikki Guaman WPtel: [address] [place] [address] Follow Up 05/23/2014 Patient Education: Patient Medication Summary Completed 05/23/2014 Appointment: Vikki Guaman WPtel: [address] [place] [address] LAB 05/10/2014 Appointment: Vikki Guaman WPtel: [address] [place] [address] feeling better, weather - FOLLOW UP 04/07 Referral: Edy Cheek WPtel: [email or web address] Referral Appointment Requested 04/03/2014 Visit Plan: Continue exercise and curren t meds See surgery for removal of right arm lesion 03/20/2014 Appointment: Vikki Guaman WPtel: [address] [place], [place] [email or web address] FOLLOW UP 03/20/2014 Patient Education: Patient Medication Summary Completed 03/20/2014 Appointment: Vikki Guaman WPtel: [address] [place], [place] [phone] [place] INJECTION 12/21/2013 Patient Education: Patient Medication Summary Completed 12/21/2013 Appointment: Jessenia Francis WPtel: [address] [place], [place] [phone] ACUTE ILLNESS 10/17/2013 Patient Education: Patient Medication Summary Completed 10/17/2013 Visit Plan: Discussed that likely lumbar etiology for leg weakness Will change amlodopine to low dose dyazide and see if helps legs and inner ear 09/24/2013 Appointment: Vikki Guaman WPtel: [address] [place] [address] FOLLOW UP 09/24/2013 Patient Education: Patient Medication Summary Completed 09/24/2013 Visit Plan: Ceftin and continue claritin /flonase Decrease amlodopine to 2.5mg q HS until fwup with Card due to weakness 05/31/2013 Appointment: Vikki Guaman WPtel: [address] [place] [address] ACUTE ILLNESS 05/31/2013 Patient Education: Patient Medication Summary Completed 05/31/2013 Appointment: Vikki Guaman WPtel: [address] [place] [address] LAB 03/28/2013 Patient Education: Patient Medication Summary Completed 03/28/2013 Appointment: Jessenia Francis WPtel: [address] [place] [address] ACUTE ILLNESS 03/26/2013 Patient Education: Patient Medication Summary Completed 03/26/2013 Visit Plan: Supportive care. Rest, Fluid s, Tylenol prn fever or bodyaches. Notify if worsening symptoms. Ceftin 12/19/2012 Appointment: Jessenia Francis WPtel: [address] [place] [address] ACUTE ILLNESS 12/19/2012 Patient Education: Patient Medication Summary Completed 12/19/2012 Appointment: Vikki Guaman WPtel: [address] [place] [address] BP CHECK 12/04/2012 Patient Education: Patient Medication Summary Completed 12/04/2012 Appointment: Vikki Guaman WPtel: [address] [place], [place] [phone] ER Follow UP 11/27/2012 Patient Education: Patient Medication Summary Completed 11/27/2012 Visit Plan: Restart flonase BID Use mecl izine 25mg q HS Vestibular exercises Claritin 10mg q AM See ENT if doesn't resolve 10/04/2012 Appointment: Vikki Guaman WPtel: [address] [place] [address] ACUTE ILLNESS 10/04/2012 Patient Education: Patient Medication Summary Completed 10/04/2012 Visit Plan: Will continue to observe 07/27/2012 Appointment: Vikki Guaman WPtel: [address] [place] [address] FOLLOW UP 07/27/2012 Patient Education: Patient Medication [...] ear recheck. 07/14/2012 Appointment: Evelyn Santos WPtel: [address] [place] [address] ACUTE ILLNESS 07/14/2012 Patient Education: Patient Medication Summary Completed 07/14/2012 Visit Plan: Decrease caffeine intake Kristin ck Bilateral Mammogram with US of left breast 06/08/2012 Appointment: Vikki Guaman WPtel: [address] [place], [place] [phone] ACUTE ILLNESS 06/08/2012 Patient Education: Patient Medication Summary Completed 06/08/2012 Appointment: Alisia Campbell WPtel: [address] [place], [place] [phone] appt scheduled 04/06 ACUTE ILLNESS 04/10/2012 Appointment: Vikki Guaman WPtel: [address] [place], [place] [phone] US LAB 02/23/2012 Patient Education: Patient Medication Summary Completed 02/23/2012 Visit Plan: Continue off carafate and se e how does Continue probiotic Add Vestibular exercises and use meclizine prn Continue Nasonex Check fasting lab including CMP, Lipids, CBC, TSH, Free T4, HbA1C 02/22/2012 Appointment: Vikki Guamantel: [address] [place], [place] [phone] FOLLOW UP 02/22/2012 Patient Education: Patient Medication Summary Completed 02/22/2012 Visit Plan: Continue carafate for 4more weeks at current dose then decrease to BID for 2wks then q HS 12/28/2011 Appointment: Vikki Guaman WPtel: [address] [place], [place] [phone] FOLLOW UP 12/28/2011 Patient Education: Patient Medication Summary Completed 12/28/2011 Visit Plan: Continue omeprazole Add Judi fate 1gm po q AC Add daily probiotic 12/15/2011 Appointment: Vikki Guaman WPtel: [address] [place] [address] ACUTE ILLNESS 12/15/2011 Patient Education: Patient Medication Summary Completed 12/15/2011 Appointment: Vikki Guamantel: [address] [place], [place] [phone] INJECTION 12/02/2011 Patient Education: Patient Medication Summary Completed 12/02/2011 Visit Plan: Diabetic Diet Accuchecks BID alternating times Hold onglyza and Januvia for now and continue diet and exercise and weight loss and moniter BS Discussed hypoglycemia and snack of peanut butter and crackers with juice or milk 09/21/2011 Appointment: Vikki Guamantel: [address] [place], [place] [phone] WORK IN 09/21/2011 Patient Education: Patient Medication Summary Completed 09/21/2011 Appointment: Vikki Guaman WPtel: [address] [place] [address] UA 09/16/2011 Patient Education: Patient Medication Summary Completed 09/16/2011 Appointment: Vikki Guamantel: [address] [place] [address] LAB 09/15/2011 Patient Education: Patient Medication Summary Completed 09/15/2011 Appointment: Vikki Guaman WPtel: [address] [place] [address] ACUTE ILLNESS 09/13/2011 Patient Education: Patient Medication Summary Completed 09/13/2011 Visit Plan: Injection to Right SI joint as above Pt will call in 3 days on pain Has PT starting in 2wks. 08/16/2011 Appointment: Vikki Guaman WPtel: [address] [place] [address] ACUTE ILLNESS 08/16/2011 Patient Education: Patient Medication Summary Completed 08/16/2011 Visit Plan: OMT done Start PT May need u pdated MRI if need to consider epidural Prednisone 08/03/2011 Appointment: Vikki Guaman WPtel: [address] [place] [address] OMT 08/03/2011 Patient Education: Patient Medication Summary Completed 08/03/2011 Visit Plan: Flexeril and Vimovo OMT done Daily stretches 07/26/2011 Appointment: Vikki Guaman WPtel: [address] [place] [address] ACUTE ILLNESS 07/26/2011 Patient Education: Patient Medication Summary Completed 07/26/2011 Visit Plan: OMT done Daily stretches Roque st heat or biofreeze Right SI joint injection Call in 1week Vimovo BID 06/28/2011 Appointment: Vikki Guaman WPtel: [address] [place] [address] ACUTE ILLNESS 06/28/2011 Patient Education: Patient Medication Summary Completed 06/28/2011 Appointment: Vikki Guaman WPtel: [address] [place], [place] [id number] [place] LAB 04/01/2011 Patient Education: Patient Medication Summary Completed 04/01/2011 Visit Plan: Decrease amlodopine to 1.25m g daily Schedule with Cardiology Fasting lab in AM 03/31/2011 Appointment: Vikki Guamantel: [address] [place], [place] [phone] ACUTE ILLNESS 03/31/2011 Patient Education: Patient Medication Summary Completed 03/31/2011 Visit Plan: Saline nasal flushes prn. Ty lenol/Motrin prn headache. Notify if persists/symptoms worsening. Cerumen removal from ears as above 02/11/2011 Appointment: Vikki Guaman WPtel: [address] [place], [place] [phone] ACUTE ILLNESS 02/11/2011 Patient Education: Patient Medication Summary Completed 02/11/2011 Appointment: Vikki Guaman WPtel: [address] [place], [place] [phone] US INJECTION 12/09/2010 Patient Education: Patient Medication Summary Completed 12/09/2010 Visit Plan: Continue vimovo for 1more we ek Increase Omeprazole to BID for 1mo then resume QD if stomach improved Vestibular exercises with meclizine q HS for next week 10/15/2010 Appointment: Vikki Guaman WPtel: [address] [place], [place] [phone] FOLLOW UP 10/15/2010 Patient Education: Patient Medication Summary Completed 10/15/2010 Appointment: Vikki Guaman WPtel: [address] [place], [place] [phone] ACUTE ILLNESS 09/29/2010 Patient Education: Patient Medication Summary Completed 09/29/2010 Appointment: Vikki Guaman WPtel: [address] [place], [place] [phone] US LAB 07/06/2010 Patient Education: Patient Medication Summary Completed 07/06/2010 Visit Plan: Saline nasal flushes prn. Ty lenol/Motrin prn headache. Notify if persists/symptoms worsening. Add Veramyst Increase Omeprazole to 20mg po BID 07/02/2010 Appointment: Vikki Guaman WPtel: [address] [place] [address] ACUTE ILLNESS 07/02/2010 Patient Education: Patient Medication Summary Completed 07/02/2010 Appointment: Vikki Guaman WPtel: [address] [place] [address] FOLLOW UP 04/06/2010 Patient Education: Patient Medication Summary Completed 04/06/2010 Appointment: Vikki Guaman WPtel: [address] [place] [address] ACUTE ILLNESS 04/01/2010 Patient Education: Patient Medication Summary Completed 04/01/2010 Visit Plan: Nasocourt sample given. Pt. will notify if symptoms are worse on Tuesday. 01/22/2010 Appointment: Alisia Campbell WPtel: [address] [place] [address] ACUTE ILLNESS 01/22/2010 Patient Education: Patient Medication Summary Completed 01/22/2010 Appointment: Vikki Guaman WPtel: [address] [place] [address] US INJECTION 12/10/2009 Patient Education: Patient Medication Summary Completed 12/10/2009 Appointment: Vikki Guaman WPtel: [address] [place] [address] FOLLOW UP 12/02/2009 Patient Education: Patient Medication Summary Completed 12/02/2009 Patient Education: Lexapro Completed 0 12/02/2009 Visit Plan: May proceed with hiatal ryan ia repair per Card. so will contact Dr. Mariscal's office to proceed with surgery Trial of Lexapro 5mg QD plus use xanax prn 10/21/2009 Appointment: Vikki Guaman WPtel: [address] [place], [place] [phone] FOLLOW UP 10/21/2009 Patient Education: Patient Medication Summary Completed 10/21/2009 Visit Plan: B12 given Cont oral B12 and iron Fwup 1mo for B12 Proceed with hiatal hernia repair once card clearance 09/10/2009 Appointment: Vikki Guaman WPtel: [address] [place], [place] [phone] FOLLOW UP 09/10/2009 Patient Education: Patient Medication Summary Completed 09/10/2009 Appointment: Vikki Guaman WPtel: [address] [place], [place] [phone] FOLLOW UP 08/11/2009 Patient Education: Patient Medication Summary Completed 08/11/2009 Appointment: Vikki Guaman WPtel: [address] [place], [place] [phone] US LAB 06/10/2009 Patient Education: Patient Medication Summary Completed 06/10/2009 Visit Plan: Check fasting lab in AM--CMP ,Lipids, CBC, Vit D, TSH,FreeT4, B12 06/09/2009 Appointment: Vikki Guaman WPtel: [address] [place], [place] [phone] [[email or web address]] FOLLOW UP 06/09/2009 Patient Education: Patient Medication Summary Completed 06/09/2009 Referral: Edy Cheek WPtel: #[address] [facility] [[email or web address]] Referral Appointment Requested Referral: Edy Cheek WPtel: [address] Referral Initiated Instructions Comment . Supportive [...]
--- OUTSIDE RECORDS SUMMARY | 2019-04-25 20:35 | XMS REPORT | CCD ---
Author Author Evelyne Guaman D.O. Organization [facility] Address [address] [place] [address] Phone Care Team Providers Care Occup Ther Name Role Phone Vikki Guaman D.O., PP Unavailable CCM Unavailable Summary Purpose Interface Exchange Insurance Providers Payer name Policy type / Coverage type Covered libertarian ID Effective Begin Date Effective End Date WPS MEDICARE PART B [place] Medicare Part B [id number] 2017 Unknown Aetna [facility] Medicare Part B [id number] Unknown Family history Father Diagnosis Age At Onset Heart disease Unknown Mother Diagnosis Age At Onset Heart disease Unknown Cancer Unknown Social History Social History Element Codes Description Effective Dates Tobacco history SNOMED CT: 269685242 Never smoker 09/29/2010 Marital status Unknown Single [...] R10.13 11/22/2017 Active 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: [...] Relief 50 mcg/actuation nasal spray,suspensi on RxNorm: 0531531 2 [place] Nasal every night at bedtime 03/13/2019 03/13/2019 Inactive simvastatin 40 mg tablet RxNorm: 622774 1 Tablet(s) PO QD 01/22/2019 04/21/2019 Active omeprazole 40 mg capsule,delayed release RxNorm: 367163 1 Capsu le(s) Oral QD 01/10/2019 07/08/2019 Active Xanax 0.25 mg tablet RxNorm: 327977 TAKE 1 TABLET BY MOUTH TWIC E DAILY 01/02/2019 No Stop Date Active omeprazole 40 mg capsule,delayed release RxNorm: 377241 1 Capsu le(s) PO QD 12/11/2018 01/09/2019 Inactive metoprolol tartrate 25 mg tablet RxNorm: 171603 1 Tablet(s) PO BID 11/20/2018 05/18/2019 Active omeprazole 40 mg capsule,delayed release RxNorm: 019175 1 Capsu le(s) PO QD 11/13/2018 12/10/2018 Inactive Flonase Allergy Relief 50 mcg/actuation nasal spray,suspensi on RxNorm: 7154043 2 [place] NASAL QHS 11/07/2018 03/12/2019 Inactive simvastatin 40 mg tablet RxNorm: 683066 1 Tablet(s) PO QD 10/23/2018 01/20/2019 Inactive simvastatin 40 mg tablet RxNorm: 305464 1 Tablet(s) PO QD 07/24/2018 10/21/2018 Inactive omeprazole 40 mg capsule,delayed release RxNorm: 389869 1 Capsu le(s) PO QD 07/13/2018 11/09/2018 Inactive simvastatin 40 mg tablet RxNorm: 965929 1 Tablet(s) PO QD 06/13/2018 07/12/2018 Inactive omeprazole 40 mg capsule,delayed release RxNorm: 483388 1 Capsu le(s) PO QD 06/13/2018 07/12/2018 Inactive Bactrim DS 800 mg-160 mg tablet RxNorm: 498876 1 Tablet(s) PO BID 0 05/12/2018 05/18/2018 Inactive Bactrim DS 800 mg-160 mg tablet RxNorm: 778977 1 Tablet(s) PO BID 0 05/12/2018 05/11/2018 Inactive Macrobid 100 mg capsule RxNorm: 815497 1 Capsule(s) PO BID 05/11/19 19 05/16/2018 Inactive metoprolol tartrate 25 mg tablet RxNorm: 988040 1 Tablet(s) PO BID 05/10/2018 11/05/2018 Inactive Xanax 0.25 mg tablet RxNorm: 150664 TAKE 1 TABLET BY MOUTH TWIC E DAILY 02/16/2018 01/01/2019 Inactive Xanax 0.25 mg tablet RxNorm: 301232 1 Tablet(s) PO BID 02/14/2018 Inactive Protonix 40 mg tablet,delayed release RxNorm: 165794 1 Tablet(s) PO BID for stomach--replaces omeprazole 01/10/2018 05/09/2018 Inactive Carafate 1 gram tablet RxNorm: 266868 1 Tablet(s) PO AC & HS 201705/09/2018 Inactive Xanax 0.25 mg tablet RxNorm: 170154 1 Tablet(s) PO BID 01/03/201812/2017 Inactive Bactrim DS 800 mg-160 mg tablet RxNorm: 630902 1 Tablet(s) PO BID 1 12/12/2017 Inactive Bactrim DS 800 mg-160 mg tablet RxNorm: 874190 1 Tablet(s) PO BID 1 12/07/2017 Inactive Carafate 1 gram tablet RxNorm: 350363 1 Tablet(s) PO AC & HS 201712/21/2017 Inactive Protonix 40 mg tablet,delayed release RxNorm: 730561 1 Tablet(s) PO BID for stomach--replaces omeprazole 11/22/2017 01/09/2018 Inactive Protonix 40 mg tablet,delayed release RxNorm: 378851 1 Tablet(s) PO BID for stomach--replaces omeprazole 10/20/2017 11/21/2017 Inactive fluticasone 50 mcg/actuation nasal spray,suspension RxNorm: 6762791 2 [place] NASAL QD to each nostril 07/07/2017 08/13/2018 Inactive Nasonex 50 mcg/actuation [place] RxNorm: 7141695 2 [place] NASAL 201707/07/2017 Inactive omeprazole 40 mg capsule,delayed release RxNorm: 054902 1 Capsu le(s) PO QD 04/18/2017 10/19/2017 Inactive simvastatin 40 mg tablet RxNorm: 801576 1 Tablet(s) PO QD TAKE 1 TABLET EVERY DAY 04/18/2017 04/12/2018 Inactive metoprolol tartrate 25 mg tablet RxNorm: 345774 1/2 Tablet(s) PO QD 04/18/2017 01/09/2018 Inactive simvastatin 40 mg tablet RxNorm: 602235 Tablet(s) TAKE 1 TABLET EVERY DAY 10/27/2016 04/17/2017 Inactive metoprolol tartrate 25 mg tablet RxNorm: 336178 1/2 Tablet(s) PO QD 09/20/2016 03/18/2017 Inactive Flonase 50 mcg/actuation nasal spray,suspension RxNorm: 1797 933 2 [place] NASAL BID 09/20/2016 04/17/2017 Inactive omeprazole 40 mg capsule,delayed release RxNorm: 248690 1 Capsu le(s) PO QD 09/08/2016 04/17/2017 Inactive metoprolol tartrate 25 mg tablet RxNorm: 091254 1/2 Tablet(s) PO QD 06/14/2016 09/19/2016 Inactive ciprofloxacin 0.2 % ear drops in a dropperette RxNorm: 43726 6 4 Drop(s) OTIC TID for 1 week 02/06/2016 05/11/2016 Inactive cefdinir 300 mg capsule RxNorm: 304640 2 Capsule(s) PO QD 02/06/2016 02/15/2016 Inactive omeprazole 40 mg capsule,delayed release RxNorm: 877409 TAKE 1 CAPSULE EVERY DAY 11/06/2015 09/08/2016 Inactive simvastatin 40 mg tablet RxNorm: 998776 TAKE 1 TABLET EVERY DAY 05/201510/27/2016 Inactive Flonase 50 mcg/actuation nasal spray,suspension RxNorm: 1797 933 2 [place] NASAL BID 02/19/2015 09/19/2016 Inactive cefuroxime axetil 250 mg tablet RxNorm: 742597 1 Tablet(s) PO BID 0 11/21/2014 11/20/2014 Inactive cefuroxime axetil 250 mg tablet RxNorm: 735498 1 Tablet(s) PO BID 0 11/21/2014 11/27/2014 Inactive omeprazole 40 mg capsule,delayed release RxNorm: 711304 1 Capsu le(s) PO QD 10/09/2014 01/05/2015 Inactive meloxicam 7.5 mg tablet RxNorm: 447961 1 Tablet(s) PO QD 07/11/2014 0 08/09/2014 Inactive loratadine 10 mg tablet RxNorm: 921519 1 Tablet(s) PO QAM for a llergies 10/17/2013 08/13/2018 Inactive Flonase 50 mcg/actuation nasal spray,suspension RxNorm: 8963 23 2 [place] NASAL BID 10/17/2013 02/18/2015 Inactive prednisone 20 mg tablet RxNorm: 416850 2 Tablet(s) PO BID 10/17/2013 10/21/2013 Inactive Dyazide 37.5 mg-25 mg capsule RxNorm: 248362 1 Capsule(s) PO QAM 10/16/2013 Inactive Ceftin 500 mg tablet RxNorm: 595291 1 Tablet(s) PO BID 05/31/201307/2013 Inactive Ceftin 500 mg tablet RxNorm: 773848 1 Tablet(s) PO BID 03/26/2013 Inactive simvastatin 40 mg tablet RxNorm: 056946 Tablet(s) PO TA KE ONE TABLET BY MOUTH EVERY DAY 03/26/2013 10/07/2015 Inactive metoprolol tartrate 25 mg tablet RxNorm: 807250 Tablet( s) PO TAKE ONE-HALF TABLET BY MOUTH EVERY DAY 03/26/2013 11/12/2014 Inactive Ceftin 500 mg tablet RxNorm: 098356 1 Tablet(s) PO BID 12/19/2012 Inactive loratadine 10 mg tablet RxNorm: 396609 1 Tablet(s) PO QAM for a llergies 10/04/2012 12/02/2012 Inactive omeprazole 20 mg capsule,delayed release RxNorm: 781379 Capsule(s) PO TAKE ONE CAPSULE BY MOUTH TWICE DAILY 08/09/2012 10/08/2014 Inactive omeprazole 20 mg capsule,delayed release RxNorm: 925048 1 Capsu le(s) PO BID 08/09/2012 05/09/2018 Inactive Augmentin 875 mg-125 mg tablet RxNorm: 662167 1 Tablet(s) PO Q12H 0 07/14/2012 07/23/2012 Inactive Floxin Otic Drops 1 bottle Drops RxNorm: 5 Drop(s) OTIC BID 07/20/2012 Inactive metoprolol tartrate 25 mg tablet RxNorm: 445342 Tablet( s) PO TAKE ONE-HALF TABLET BY MOUTH EVERY DAY 04/11/2012 03/25/2013 Inactive simvastatin 40 mg tablet RxNorm: 672759 Tablet(s) PO TA KE ONE TABLET BY MOUTH EVERY DAY 04/11/2012 03/25/2013 Inactive lancets RxNorm: Misc Miscellaneous USE ONE TO CH JEFFERY GLUCOSE EVERY DAY 04/04/2012 05/09/2018 Inactive Carafate 1 gram tablet RxNorm: 299879 1 Tablet(s) PO AC & HS 201111/12/2014 Inactive Flagyl 500 mg tablet RxNorm: 932902 1 Tablet(s) PO TID 12/15/2011 Inactive Carafate 1 gram tablet RxNorm: 720086 1 Tablet(s) PO AC & HS 201102/12/2012 Inactive One Touch Test strips RxNorm: Miscellaneous QD 09/21/2011 05/09/2018 Inactive one touch ultra mini test strips Protonix 40 mg Tab RxNorm: 335787 1 Tablet(s) PO QD 09/13/20112011 Inactive Protonix 40 mg Tab RxNorm: 250125 1 Tablet(s) PO QD 09/13/20112011 Inactive prednisone 20 mg Tab RxNorm: 939491 1 Tablet(s) PO BID 08/03/201106/2011 Inactive Flexeril 5 mg Tab RxNorm: 993587 1 Tablet(s) PO QHS for spasm 07/2508/24/2011 Inactive Flexeril 5 mg Tab RxNorm: 247888 1 Tablet(s) PO QHS for spasm 06/2707/25/2011 Inactive amlodipine 2.5 mg Tab RxNorm: 134198 1/2 Tablet(s) PO QD replac es 5mg dose 03/31/2011 06/27/2011 Inactive simvastatin 40 mg tablet RxNorm: 173886 1 Tablet(s) PO QD 03/31/2011 03/24/2012 Inactive metoprolol tartrate 25 mg tablet RxNorm: 710662 1/2 Tablet(s) PO QD 03/31/2011 03/24/2012 Inactive omeprazole 20 mg capsule,delayed release RxNorm: 436854 1 Capsu le(s) PO BID 03/31/2011 09/12/2011 Inactive cefdinir 300 mg Cap RxNorm: 785363 2 Capsule(s) PO QD 02/11/201102/04 Inactive simvastatin 40 mg Tab RxNorm: 550772 1 Tablet(s) PO QD 02/01/2011 Inactive metoprolol tartrate 25 mg Tab RxNorm: 118787 1/2 Tablet(s) PO QD 03/30/2011 Inactive metoprolol tartrate 25 mg Tab RxNorm: 844338 1/2 Tablet(s) PO QD 12/28/2010 Inactive meclizine 25 mg Tab RxNorm: 5962900 1 Tablet(s) PO QHS 10/15/201011/2010 Inactive for dizziness Ceftin 500 mg Tab RxNorm: 711713 1 Tablet(s) PO BID 07/02/20102010 Inactive omeprazole 20 mg Cap, Delayed Release RxNorm: 092937 1 Capsule( s) PO BID 07/02/2010 12/28/2010 Inactive simvastatin 40 mg Tab RxNorm: 946926 1 Tablet(s) PO QD 06/30/201007/2018 Inactive simvastatin 40 mg Tab RxNorm: 624982 1 Tablet(s) PO QD 06/30/2010 Inactive simvastatin 40 mg Tab RxNorm: 503126 1 Tablet(s) PO QD 02/25/2010 Inactive Tessalon Perles 100 mg Cap RxNorm: 977226 1 Capsule(s) PO Q6-8H 01/28/2010 Inactive cefdinir 300 mg Cap RxNorm: 545721 1 Capsule(s) PO BID 01/22/2010 Inactive Lexapro 10 mg Tab RxNorm: 895889 1 Tablet(s) PO QD 12/02/2009 010 Inactive Cipro 250 mg Tab RxNorm: 226447 1 Tablet(s) PO BID 12/02/2009 010 Inactive Wellbutrin XL 150 mg 24 hr Tab RxNorm: 278651 1 Tablet(s) PO QAM 08/07/2009 Inactive Fish Oil 1,000 mg Cap RxNorm: 1 Capsule(s) PO QD No Start Date Active Tylenol Extra Strength 500 mg tablet RxNorm: 834888 1/2 Tablet( s) PO as needed No Start Date Active nitroglycerin 0.4 mg sublingual tablet RxNorm: 098377 Tablet(s) SL as needed No Start Date Active Calcium with Vitamin D 600 mg (1,500 mg)-400 unit tablet RxN orm: 316102 1 Tablet(s) PO QD No Start Date Active Multivitamin & Mineral Formula Tab RxNorm: 1 Tablet(s) PO QD No St art Date Active vitamin B complex capsule RxNorm: 1 Capsule(s) PO QD No Start Date Active Aspirin 81 mg Tab RxNorm: 828419 1 Tablet(s) PO QD No Start Date Active isosorbide mononitrate ER 30 mg tablet,extended release 24 h r RxNorm: 889774 1 Tablet(s) PO QHS No Start Date Active Vitamin D 1,000 unit Cap RxNorm: 089346 1 Capsule(s) PO QD No Start D ate Active Co Q-10 oral RxNorm: 60048 oral No Start Date Active metoprolol tartrate 25 mg Tab RxNorm: 597128 1/2 Tablet(s) PO QD No Start Date 12/27/2010 Inactive Nasonex 50 mcg/actuation [place] RxNorm: 8653312 2 [place] NASAL No Sta rt Date 07/06/2017 Inactive Vitamin B12 1000mcg Tablet RxNorm: 1 Tablet(s) PO QD No Start Date 11/12/2014 Inactive amlodipine 5 mg Tab RxNorm: 656217 1 Tablet(s) PO QD No Start Date Inactive simvastatin 40 mg tablet RxNorm: 408827 1 Tablet(s) PO QD No Start Date 06/12/2018 Inactive omeprazole 20 mg capsule,delayed release RxNorm: 355560 1 Capsu le(s) PO BID No Start Date 08/08/2012 Inactive omeprazole 40 mg capsule,delayed release RxNorm: 100323 1 Capsu le(s) PO QD No Start Date 06/12/2018 Inactive Nexium 40 mg Cap RxNorm: 077302 1 Capsule(s) PO QD No Start Date 01/05 Inactive Stool Softener 100 mg Tab RxNorm: 8705658 2 Tablet(s) PO BID No Sta rt Date 03/30/2011 Inactive Calcium with Vitamin D 600 mg (1,500 mg)-400 unit Tab RxNorm : 055268 1 Tablet(s) PO QD No Start Date 11/12/2014 Inactive iron 325 mg (65 mg iron) Tab RxNorm: 602642 1 Tablet(s) PO QD No St art Date 11/12/2014 Inactive Flonase 50 mcg/actuation Nasal [place] RxNorm: 819945 2 [place] DEMOND AL BID No Start Date 10/16/2013 Inactive fluticasone 50 mcg/actuation nasal spray,suspension RxNorm: 0791809 2 [place] NASAL QD to each nostril No Start Date 07/06/2017 Inactive Nasonex 50 mcg/actuation [place] RxNorm: 5720483 2 [place] NASAL QD No Start Date 07/06/2017 Inactive hydralazine 50 mg tablet RxNorm: 463408 1 Tablet(s) PO as needed for BP over 160/90 No Start Date 11/21/2017 Inactive Vimovo 500 mg-20 mg 12 hr Tab RxNorm: 423353 1 Tablet(s) PO BID No Start Date 02/10/2011 Inactive Tylenol PM 25 mg-500 mg/15 mL Oral Soln RxNorm: 0330318 1 PO QPM No Start Date 11/12/2014 Inactive Iron (Ferrous Sulfate) Oral RxNorm: Oral No Start Date 03/30/19 12 Inactive Reglan 10 mg Tab RxNorm: 434714 1 Tablet(s) PO TID before meals No Start Date 02/10/2011 Inactive Xanax 1 mg Tab RxNorm: 088936 1/2 Tablet(s) PO QD No Start Date 11/21 Inactive amlodipine 10 mg tablet RxNorm: 993188 1 Tablet(s) PO QD No Start D ate 09/23/2013 Inactive Iron (dried) Oral RxNorm: Oral No Start Date 03/30/2011 Inactiv e metoprolol tartrate 50 mg tablet RxNorm: 751056 1 Tablet(s) PO BID No Start Date 02/13/2018 Inactive Xanax 0.25 mg tablet RxNorm: 326392 1 Tablet(s) PO BID No Start Date 01/02/2018 Inactive lancets RxNorm: Miscellaneous check blood sugar at least once daily No Start Date 04/03/2012 Inactive simvastatin 40 mg Tab RxNorm: 338164 1 Tablet(s) PO QD No Start Date 02/24/2010 Inactive isosorbide mononitrate ER 30 mg tablet,extended release 24 h r RxNorm: 885590 1 Tablet(s) PO QHS No Start Date 08/13/2018 Inactive amlodipine 2.5 mg tablet RxNorm: 519413 1 Tablet(s) PO QD No Start Date 09/23/2013 Inactive sucralfate 1 gram tablet RxNorm: 960390 1 Tablet(s) PO QID No Start Date 05/09/2018 Inactive Fish Oil Oral RxNorm: Oral No Start Date 03/31/2011 Inactive Multiple Vitamin Oral RxNorm: Oral No Start Date 03/31/2011 Franny ctive metoprolol tartrate 25 mg tablet RxNorm: 899613 1/2 Tablet(s) P O QD No Start Date 06/13/2016 Inactive metoprolol tartrate 50 mg tablet RxNorm: 299548 1/2 Tablet(s) P O BID No Start Date 05/09/2018 Inactive Flonase Allergy Relief 50 mcg/actuation nasal spray,suspensi on RxNorm: 3432820 2 [place] NASAL QHS No Start Date 11/06/2018 Inactive [...] Result Date S ervice Location GFR CALC [id number] GFR Non Afr Amr 52 mL/min 12/15/2018 Unk nown GFR CALC [id number] GFR Afr Amr >60 mL/min 12/15/2018 Unknow n COMPREHENSIVE METABOLIC 23913 AST 17 U/L 2018 Unknown COMPREHENSIVE METABOLIC 61900 ALT 11 U/L 2018 Unknown COMPREHENSIVE METABOLIC 69119 BUN 17 mg/dL 2018 Unknown COMPREHENSIVE METABOLIC 70848 ALBUMIN 3.9 g/dL 2018 Unknown COMPREHENSIVE METABOLIC 27832 CHLORIDE 108 mmol/L 12/15 Unknown COMPREHENSIVE METABOLIC 95297 Bili Total 0.5 mg/dL 12/15 Unknown COMPREHENSIVE METABOLIC 70238 ALK PHOS 72 U/L 2018 Unknown COMPREHENSIVE METABOLIC 33026 SODIUM 142 mmol/L 12/15 Unknown COMPREHENSIVE METABOLIC 52189 CREATININE 1.02 mg/dL 12/05 Unknown COMPREHENSIVE METABOLIC 20342 CALCIUM 9.3 mg/dL 2018 Unknown COMPREHENSIVE METABOLIC 83978 POTASSIUM 4.0 mmol/L 12/15 Unknown COMPREHENSIVE METABOLIC 09817 Total Protein 6.2 g/dL Unknown COMPREHENSIVE METABOLIC 12546 Glucose 93 mg/dL 2018 Unknown COMPREHENSIVE METABOLIC 13707 Bicarbonate 27 mmol/L 12/05 Unknown COMPREHENSIVE METABOLIC 84905 AGAP 7 mmol/L 2018 Unknown GFR CALC 8368697 GFR Non Afr Amr 48 mL/min 08/14/2018 Unk nown GFR CALC 6229351 GFR Afr Amr 59 mL/min 08/14/2018 Unknown THYROID STIMULATING HORMONE 93768 TSH 1.936 uIU/mL 08/14/2018 Unknown COMPREHENSIVE METABOLIC 01873 AST 18 U/L 2018 Unknown COMPREHENSIVE METABOLIC 54068 ALT 11 U/L 2018 Unknown COMPREHENSIVE METABOLIC 30025 BUN 18 mg/dL 2018 Unknown COMPREHENSIVE METABOLIC 87302 ALBUMIN 4.2 g/dL 2018 Unknown COMPREHENSIVE METABOLIC 72948 CHLORIDE 109 mmol/L 08/14 Unknown COMPREHENSIVE METABOLIC 35528 Bili Total 0.4 mg/dL 08/14 Unknown COMPREHENSIVE METABOLIC 26559 ALK PHOS 64 U/L 2018 Unknown COMPREHENSIVE METABOLIC 54360 SODIUM 142 mmol/L 08/14 Unknown COMPREHENSIVE METABOLIC 66829 CREATININE 1.09 mg/dL 08/05 Unknown COMPREHENSIVE METABOLIC 48388 CALCIUM 9.3 mg/dL 2018 Unknown COMPREHENSIVE METABOLIC 71508 POTASSIUM 4.7 mmol/L 08/14 Unknown COMPREHENSIVE METABOLIC 83391 Total Protein 6.3 g/dL Unknown COMPREHENSIVE METABOLIC 09279 Glucose 84 mg/dL 2018 Unknown COMPREHENSIVE METABOLIC 96408 Bicarbonate 25 mmol/L 08/05 Unknown COMPREHENSIVE METABOLIC 81258 AGAP 8 mmol/L 2018 Unknown COMPLETE BLOOD COUNT [id number] WBC 7.8 10e9/L 08/15/19 19 Unknown COMPLETE BLOOD COUNT [id number] RBC 4.04 10e12/L 2018 Unknown COMPLETE BLOOD COUNT [id number] HEMOGLOBIN 12.2 g/dL 08/15/19 19 Unknown COMPLETE BLOOD COUNT [id number] HEMATOCRIT 38.6 % 08/15/19 19 Unknown COMPLETE BLOOD COUNT [id number] MCV 95.5 fL 9 Unknown COMPLETE BLOOD COUNT [id number] MCH 30.2 pg 9 Unknown COMPLETE BLOOD COUNT [id number] MCHC 31.6 g/dL 9 Unknown COMPLETE BLOOD COUNT [id number] PLATELET COUNT 215 10e9/L 12/2018 Unknown COMPLETE BLOOD COUNT [id number] Mean Plt Volume 11.2 fL 12/2018 Unknown COMPLETE BLOOD COUNT [id number] Neut Auto 45.7 % 9 Unknown COMPLETE BLOOD COUNT [id number] Lymph Auto 42.1 % 08/15/19 19 Unknown COMPLETE BLOOD COUNT [id number] [place] Auto 9.2 % 9 Unknown COMPLETE BLOOD COUNT [id number] RDW 13.4 % 9 Unknown COMPLETE BLOOD COUNT [id number] Eos Auto 2.7 % 9 Unknown COMPLETE BLOOD COUNT [id number] Baso Auto 0.3 % 9 Unknown COMPLETE BLOOD COUNT [id number] Neutrophil Abs 3.56 10e9/L Unknown COMPLETE BLOOD COUNT [id number] Lymphocyte Abs 3.28 10e9/L Unknown COMPLETE BLOOD COUNT [id number] Monocyte Abs 0.72 10e9/L 08/05 Unknown COMPLETE BLOOD COUNT [id number] Eosinophil Abs 0.21 10e9/L Unknown COMPLETE BLOOD COUNT [id number] RDW-SD 44.9 fL 9 Unknown COMPLETE BLOOD COUNT [id number] Basophil Abs 0.02 10e9/L 08/05 Unknown COMPLETE BLOOD COUNT [id number] WBC 5.2 10e9/L 12/01/19 18 Unknown COMPLETE BLOOD COUNT [id number] RBC 4.21 10e12/L 2017 Unknown COMPLETE BLOOD COUNT [id number] HEMOGLOBIN 12.8 g/dL 12/01/19 18 Unknown COMPLETE BLOOD COUNT [id number] HEMATOCRIT 39.0 % 12/01/19 18 Unknown COMPLETE BLOOD COUNT [id number] MCV 92.6 fL 8 Unknown COMPLETE BLOOD COUNT [id number] MCH 30.4 pg 8 Unknown COMPLETE BLOOD COUNT [id number] MCHC 32.8 g/dL 8 Unknown COMPLETE BLOOD COUNT [id number] PLATELET COUNT 202 10e9/L Unknown COMPLETE BLOOD COUNT [id number] Mean Plt Volume 10.7 fL Unknown COMPLETE BLOOD COUNT [id number] Neut Auto 40.9 % 8 Unknown COMPLETE BLOOD COUNT 1001301 Lymph Auto 46.3 % 12/01/19 18 Unknown COMPLETE BLOOD COUNT 8944512 [place] Auto 9.3 % 8 Unknown COMPLETE BLOOD COUNT [id number] RDW 13.7 % 8 Unknown COMPLETE BLOOD COUNT [id number] Eos Auto 2.9 % 8 Unknown COMPLETE BLOOD COUNT [id number] Baso Auto 0.6 % 8 Unknown COMPLETE BLOOD COUNT [id number] Neutrophil Abs 2.13 10e9/L Unknown COMPLETE BLOOD COUNT [id number] Lymphocyte Abs 2.41 10e9/L Unknown COMPLETE BLOOD COUNT [id number] Monocyte Abs 0.48 10e9/L 11/06 Unknown COMPLETE BLOOD COUNT [id number] Eosinophil Abs 0.15 10e9/L Unknown COMPLETE BLOOD COUNT [id number] RDW-SD 45.2 fL 8 Unknown COMPLETE BLOOD COUNT [id number] Basophil Abs 0.03 10e9/L 11/06 [place] [address] Glucose 118 mg/dL 11/30 [place] [address] CREATININE 1.01 mg/dL [place] [address] BUN 14 mg/dL 11/30 [place] [address] SODIUM 141 mmol/L 11/06 [place] [address] POTASSIUM 4.0 mmol/L 11/06 [place] [address] CHLORIDE 108 mmol/L 11/06 [place] [address] Bicarbonate 25 mmol/L [place] [address] AGAP 8 mmol/L 11/30 [place] [address] CALCIUM 9.6 mg/dL 11/30 Unknown FREE T4 28461 T4 Free 1.23 ng/dL 11/30/2017 Unknown GFR CALC 5851170 GFR Non Afr Amr 53 mL/min 11/30/2017 Unk nown GFR CALC 6918428 GFR Afr Amr >60 mL/min 11/30/2017 Unknow n THYROID STIMULATING HORMONE 17209 TSH 2.124 uIU/mL 11/30/2017 Unknown LIPID GROUP 14831 Cholesterol 152 mg/dL 09/28/2017 Unkno wn LIPID GROUP 02525 Triglyceride 151 mg/dL 09/28/2017 Unkn own LIPID GROUP 05057 HDL CHOLESTEROL 47 mg/dL 09/28/2017 U nknown LIPID GROUP 13197 Chol/HDL Ratio 3.23 ratio 09/28/2017 U nknown LIPID GROUP 80944 NON-HDL Chol 105 mg/dL 09/28/2017 Unkn own LIPID GROUP 06243 LDL Cholesterol 75 mg/dL 09/28/2017 U nknown ASSAY OF TROPONIN QUANT 19945 Troponin-I <0.30 ng/mL Unknown COMPREHENSIVE METABOLIC 90385 AST 20 U/L 2017 Unknown COMPREHENSIVE METABOLIC 98324 ALT 14 U/L 2017 Unknown COMPREHENSIVE METABOLIC 61740 BUN 19 mg/dL 2017 Unknown COMPREHENSIVE METABOLIC 77517 ALBUMIN 4.2 g/dL 2017 Unknown COMPREHENSIVE METABOLIC 11879 CHLORIDE 102 mmol/L 09/27 Unknown COMPREHENSIVE METABOLIC 92869 Bili Total 0.4 mg/dL 09/27 Unknown COMPREHENSIVE METABOLIC 75503 ALK PHOS 66 U/L 2017 Unknown COMPREHENSIVE METABOLIC 74388 SODIUM 135 mmol/L 09/27 Unknown COMPREHENSIVE METABOLIC 20785 CREATININE 1.01 mg/dL 09/05 Unknown COMPREHENSIVE METABOLIC 03901 CALCIUM 9.3 mg/dL 2017 Unknown COMPREHENSIVE METABOLIC 34723 POTASSIUM 4.8 mmol/L 09/27 Unknown COMPREHENSIVE METABOLIC 47885 Total Protein 7.0 g/dL Unknown COMPREHENSIVE METABOLIC 08438 Glucose 91 mg/dL 2017 Unknown COMPREHENSIVE METABOLIC 45686 Bicarbonate 23 mmol/L 09/05 Unknown COMPREHENSIVE METABOLIC 89855 AGAP 10 mmol/L 2017 Unknown COMPLETE BLOOD COUNT [id number] WBC 7.5 10e9/L 09/28/19 18 Unknown COMPLETE BLOOD COUNT [id number] RBC 4.13 10e12/L 2017 Unknown COMPLETE BLOOD COUNT [id number] HEMOGLOBIN 12.6 g/dL 09/28/19 18 Unknown COMPLETE BLOOD COUNT [id number] HEMATOCRIT 38.4 % 09/28/19 18 Unknown COMPLETE BLOOD COUNT [id number] MCV 93.0 fL 8 Unknown COMPLETE BLOOD COUNT [id number] MCH 30.5 pg 8 Unknown COMPLETE BLOOD COUNT [id number] MCHC 32.8 g/dL 8 Unknown COMPLETE BLOOD COUNT 6507790 PLATELET COUNT 204 10e9/L Unknown COMPLETE BLOOD COUNT [id number] Mean Plt Volume 10.9 fL Unknown COMPLETE BLOOD COUNT 0196149 Neut Auto 43.1 % 8 Unknown COMPLETE BLOOD COUNT [id number] Lymph Auto 45.0 % 09/28/19 18 Unknown COMPLETE BLOOD COUNT 4234319 [place] Auto 9.2 % 8 Unknown COMPLETE BLOOD COUNT [id number] RDW 13.4 % 8 Unknown COMPLETE BLOOD COUNT 4266910 Eos Auto 2.3 % 8 Unknown COMPLETE BLOOD COUNT 6578312 Baso Auto 0.4 % 8 Unknown COMPLETE BLOOD COUNT [id number] Neutrophil Abs 3.23 10e9/L Unknown COMPLETE BLOOD COUNT 6620947 Lymphocyte Abs 3.38 10e9/L Unknown COMPLETE BLOOD COUNT [id number] Monocyte Abs 0.69 10e9/L 09/05 Unknown COMPLETE BLOOD COUNT [id number] Eosinophil Abs 0.17 10e9/L Unknown COMPLETE BLOOD COUNT 6601006 RDW-SD 44.4 fL 8 Unknown COMPLETE BLOOD COUNT [id number] Basophil Abs 0.03 10e9/L 09/05 Unknown GFR CALC 3184049 GFR Non Afr Amr 53 mL/min 09/27/2017 Unk nown GFR CALC 7905178 GFR Afr Amr >60 mL/min 09/27/2017 Unknow n GLYCOSYLATED HEMOGLOBIN TEST 39000 Hgb A1c 64395-4 5.4 % 0 09/27/2017 Unknown MEAN GLUC 5332707 Calc Mean Gluc 108 mg/dL 09/27/2017 Unkn own MEAN GLUC 0347596 Calc Mean Gluc 114 mg/dL 11/01/2016 Unkn own LIPID GROUP 30730 Cholesterol 146 mg/dL 11/01/2016 Unkno wn LIPID GROUP 49869 Triglyceride 119 mg/dL 11/01/2016 Unkn own LIPID GROUP 37871 HDL CHOLESTEROL 47 mg/dL 11/01/2016 U nknown LIPID GROUP 84121 Chol/HDL Ratio 3.11 ratio 11/01/2016 U nknown LIPID GROUP 27864 NON-HDL Chol 99 mg/dL 11/01/2016 Unkn own LIPID GROUP 79540 LDL Cholesterol 75 mg/dL 11/01/2016 U nknown GLYCOSYLATED HEMOGLOBIN TEST 24220 Hgb A1c 65376-0 5.6 % 0 11/01/2016 Unknown COMPREHENSIVE METABOLIC 82009 AST 22 U/L 2016 Unknown COMPREHENSIVE METABOLIC 52716 ALT 12 U/L 2016 Unknown COMPREHENSIVE METABOLIC 15344 BUN 17 mg/dL 2016 Unknown COMPREHENSIVE METABOLIC 89047 ALBUMIN 4.0 g/dL 2016 Unknown COMPREHENSIVE METABOLIC 89116 CHLORIDE 110 mmol/L 11/01 Unknown COMPREHENSIVE METABOLIC 79176 Bili Total 0.4 mg/dL 11/01 Unknown COMPREHENSIVE METABOLIC 87952 ALK PHOS 63 U/L 2016 Unknown COMPREHENSIVE METABOLIC 08660 SODIUM 140 mmol/L 11/01 Unknown COMPREHENSIVE METABOLIC 20995 CREATININE 1.05 mg/dL 10/06 Unknown COMPREHENSIVE METABOLIC 60361 CALCIUM 9.2 mg/dL 2016 Unknown COMPREHENSIVE METABOLIC 38661 POTASSIUM 4.2 mmol/L 11/01 Unknown COMPREHENSIVE METABOLIC 01523 Total Protein 6.2 g/dL Unknown COMPREHENSIVE METABOLIC 01782 Glucose 87 mg/dL 2016 Unknown COMPREHENSIVE METABOLIC 68222 Bicarbonate 24 mmol/L 10/06 Unknown COMPREHENSIVE METABOLIC 21864 AGAP 6 mmol/L 2016 Unknown GFR CALC [id number] GFR Non Afr Amr 51 mL/min 11/01/2016 Unk nown GFR CALC [id number] GFR Afr Amr >60 mL/min 11/01/2016 Unknow n COMPLETE BLOOD COUNT [id number] WBC 6.7 10e9/L 11/02/19 17 Unknown COMPLETE BLOOD COUNT [id number] RBC 4.04 10e12/L 2016 Unknown COMPLETE BLOOD COUNT [id number] HEMOGLOBIN 12.1 g/dL 11/02/19 17 Unknown COMPLETE BLOOD COUNT [id number] HEMATOCRIT 38.0 % 11/02/19 17 Unknown COMPLETE BLOOD COUNT [id number] MCV 94.1 fL 7 Unknown COMPLETE BLOOD COUNT [id number] MCH 30.0 pg 7 Unknown COMPLETE BLOOD COUNT 4255718 MCHC 31.8 g/dL 7 Unknown COMPLETE BLOOD COUNT [id number] PLATELET COUNT 206 10e9/L Unknown COMPLETE BLOOD COUNT [id number] Mean Plt Volume 11.3 fL Unknown COMPLETE BLOOD COUNT 5308401 Neut Auto 35.8 % 7 Unknown COMPLETE BLOOD COUNT 8335266 Lymph Auto 51.6 % 11/02/19 17 Unknown COMPLETE BLOOD COUNT 8682891 [place] Auto 8.8 % 7 Unknown COMPLETE BLOOD COUNT 5188655 RDW 13.5 % 7 Unknown COMPLETE BLOOD COUNT 5458795 Eos Auto 3.4 % 7 Unknown COMPLETE BLOOD COUNT 5552854 Baso Auto 0.4 % 7 Unknown COMPLETE BLOOD COUNT 5334377 Neutrophil Abs 2.40 10e9/L Unknown COMPLETE BLOOD COUNT 9579403 Lymphocyte Abs 3.46 10e9/L Unknown COMPLETE BLOOD COUNT [id number] Monocyte Abs 0.59 10e9/L 10/06 Unknown COMPLETE BLOOD COUNT [id number] Eosinophil Abs 0.23 10e9/L Unknown COMPLETE BLOOD COUNT 8761231 RDW-SD 45.3 fL 7 Unknown COMPLETE BLOOD COUNT [id number] Basophil Abs 0.03 10e9/L 10/06 Unknown THYROID STIMULATING HORMONE 94227 TSH 1.981 uIU/mL 11/01/2016 Unknown COMPLETE BLOOD COUNT [id number] WBC 6.0 10e9/L 05/14/19 17 Unknown COMPLETE BLOOD COUNT [id number] RBC 4.29 10e12/L 2016 Unknown COMPLETE BLOOD COUNT [id number] HEMOGLOBIN 12.9 g/dL 05/14/19 17 Unknown COMPLETE BLOOD COUNT 7994348 HEMATOCRIT 38.4 % 05/14/19 17 Unknown COMPLETE BLOOD COUNT 8995611 MCV 89.5 fL 7 Unknown COMPLETE BLOOD COUNT 6941655 MCH 30.1 pg 7 Unknown COMPLETE BLOOD COUNT 6555173 MCHC 33.6 g/dL 7 Unknown COMPLETE BLOOD COUNT [id number] PLATELET COUNT 181 10e9/L 11/2016 Unknown COMPLETE BLOOD COUNT 9803513 Mean Plt Volume 11.7 fL 11/2016 Unknown COMPLETE BLOOD COUNT 2018224 Neut Auto 36.9 % 7 Unknown COMPLETE BLOOD COUNT 5811487 Lymph Auto 50.4 % 05/14/19 17 Unknown COMPLETE BLOOD COUNT 0093379 [place] Auto 9.0 % 7 Unknown COMPLETE BLOOD COUNT 3100588 RDW 13.7 % 7 Unknown COMPLETE BLOOD COUNT 7768151 Eos Auto 3.4 % 7 Unknown COMPLETE BLOOD COUNT 0496102 Baso Auto 0.3 % 7 Unknown COMPLETE BLOOD COUNT 3678436 Neutrophil Abs 2.21 10e9/L Unknown COMPLETE BLOOD COUNT [id number] Lymphocyte Abs 3.02 10e9/L Unknown COMPLETE BLOOD COUNT 8109674 Monocyte Abs 0.54 10e9/L 11/2016 Unknown COMPLETE BLOOD COUNT [id number] Eosinophil Abs 0.20 10e9/L Unknown COMPLETE BLOOD COUNT 5708968 RDW-SD 44.0 fL 7 Unknown COMPLETE BLOOD COUNT 8684516 Basophil Abs 0.02 10e9/L 11/2016 Unknown GLYCOSYLATED HEMOGLOBIN TEST 24594 Hgb A1c 75589-3 5.4 % 0 05/13/2016 Unknown THYROID STIMULATING HORMONE 29636 TSH 2.200 uIU/mL 05/13/2016 Unknown GFR CALC 0602185 GFR Non Afr Amr 50 mL/min 05/13/2016 Unk nown GFR CALC [id number] GFR Afr Amr >60 mL/min 05/13/2016 Unknow n MEAN GLUC [id number] Calc Mean Gluc 108 mg/dL 05/13/2016 Unkn own COMPREHENSIVE METABOLIC 12298 AST 18 U/L 2016 Unknown COMPREHENSIVE METABOLIC 88830 ALT 10 U/L 2016 Unknown COMPREHENSIVE METABOLIC 46113 BUN 20 mg/dL 2016 Unknown COMPREHENSIVE METABOLIC 51030 ALBUMIN 4.1 g/dL 2016 Unknown COMPREHENSIVE METABOLIC 28722 CHLORIDE 109 mmol/L 05/13 Unknown COMPREHENSIVE METABOLIC 11911 Bili Total 0.6 mg/dL 05/13 Unknown COMPREHENSIVE METABOLIC 21416 ALK PHOS 64 U/L 2016 Unknown COMPREHENSIVE METABOLIC 26813 SODIUM 141 mmol/L 05/13 Unknown COMPREHENSIVE METABOLIC 12764 CREATININE 1.06 mg/dL 11/2016 Unknown COMPREHENSIVE METABOLIC 24295 CALCIUM 9.9 mg/dL 2016 Unknown COMPREHENSIVE METABOLIC 25135 POTASSIUM 4.2 mmol/L 05/13 Unknown COMPREHENSIVE METABOLIC 46339 Total Protein 6.3 g/dL Unknown COMPREHENSIVE METABOLIC 05293 Glucose 99 mg/dL 2016 Unknown COMPREHENSIVE METABOLIC 09765 Bicarbonate 21 mmol/L 11/2016 Unknown COMPREHENSIVE METABOLIC 13487 AGAP 11 mmol/L 2016 Unknown LIPID GROUP 46495 Cholesterol 169 mg/dL 11/25/2015 Unkno wn LIPID GROUP 02631 Triglyceride 165 mg/dL 11/25/2015 Unkn own LIPID GROUP 31024 HDL CHOLESTEROL 43 mg/dL 11/25/2015 U nknown LIPID GROUP 28327 Chol/HDL Ratio 3.93 ratio 11/25/2015 U nknown LIPID GROUP 14414 NON-HDL Chol 126 mg/dL 11/25/2015 Unkn own LIPID GROUP 41625 LDL Cholesterol 93 mg/dL 11/25/2015 U nknown COMPREHENSIVE METABOLIC 21547 AST 18 U/L 2015 Unknown COMPREHENSIVE METABOLIC 10187 ALT 10 U/L 2015 Unknown COMPREHENSIVE METABOLIC 59547 BUN 20 mg/dL 2015 Unknown COMPREHENSIVE METABOLIC 58550 ALBUMIN 3.9 g/dL 2015 Unknown COMPREHENSIVE METABOLIC 80976 CHLORIDE 110 mmol/L 11/24 Unknown COMPREHENSIVE METABOLIC 61218 Bili Total 0.5 mg/dL 11/24 Unknown COMPREHENSIVE METABOLIC 23431 ALK PHOS 72 U/L 2015 Unknown COMPREHENSIVE METABOLIC 93555 SODIUM 141 mmol/L 11/24 Unknown COMPREHENSIVE METABOLIC 25992 CREATININE 1.12 mg/dL 11/06 Unknown COMPREHENSIVE METABOLIC 34438 CALCIUM 9.7 mg/dL 2015 Unknown COMPREHENSIVE METABOLIC 82593 POTASSIUM 4.4 mmol/L 11/24 Unknown COMPREHENSIVE METABOLIC 87981 Total Protein 6.2 g/dL Unknown COMPREHENSIVE METABOLIC 45562 Glucose 90 mg/dL 2015 Unknown COMPREHENSIVE METABOLIC 62715 Bicarbonate 23 mmol/L 11/06 Unknown COMPREHENSIVE METABOLIC 16297 AGAP 8 mmol/L 2015 Unknown GFR CALC 1268974 GFR Non Afr Amr 47 mL/min 11/25/2015 Unk nown GFR CALC 4181667 GFR Afr Amr 57 mL/min 11/25/2015 Unknown GLYCOSYLATED HEMOGLOBIN TEST 81987 Hgb A1c 08694-2 5.5 % 0 11/25/2015 Unknown THYROID STIMULATING HORMONE 59811 TSH 2.537 uIU/mL 11/25/2015 Unknown FREE T4 64703 T4 Free 1.36 ng/dL 11/25/2015 Unknown COMPLETE BLOOD COUNT 4937316 WBC 6.8 10e9/L 11/25/19 16 Unknown COMPLETE BLOOD COUNT 7278964 RBC 4.20 10e12/L 2015 Unknown COMPLETE BLOOD COUNT 5398740 HEMOGLOBIN 12.5 g/dL 11/25/19 16 Unknown COMPLETE BLOOD COUNT 9588718 HEMATOCRIT 38.0 % 11/25/19 16 Unknown COMPLETE BLOOD COUNT 1810971 MCV 90.5 fL 6 Unknown COMPLETE BLOOD COUNT 8103284 MCH 29.8 pg 6 Unknown COMPLETE BLOOD COUNT 9693257 MCHC 32.9 g/dL 6 Unknown COMPLETE BLOOD COUNT 8630141 PLATELET COUNT 197 10e9/L Unknown COMPLETE BLOOD COUNT 0834909 Mean Plt Volume 11.7 fL Unknown COMPLETE BLOOD COUNT 3132394 Neut Auto 41.3 % 6 Unknown COMPLETE BLOOD COUNT 4175341 Lymph Auto 47.1 % 11/25/19 16 Unknown COMPLETE BLOOD COUNT 4101122 [place] Auto 7.8 % 6 Unknown COMPLETE BLOOD COUNT 3478967 RDW 13.8 % 6 Unknown COMPLETE BLOOD COUNT 6975133 Eos Auto 3.4 % 6 Unknown COMPLETE BLOOD COUNT 7869719 Baso Auto 0.4 % 6 Unknown COMPLETE BLOOD COUNT 2495579 Neutrophil Abs 2.81 10e9/L Unknown COMPLETE BLOOD COUNT 9373564 Lymphocyte Abs 3.20 10e9/L Unknown COMPLETE BLOOD COUNT 6452260 Monocyte Abs 0.53 10e9/L 11/06 Unknown COMPLETE BLOOD COUNT 9544473 Eosinophil Abs 0.23 10e9/L Unknown COMPLETE BLOOD COUNT 9140169 RDW-SD 44.4 fL 6 Unknown COMPLETE BLOOD COUNT 8680048 Basophil Abs 0.03 10e9/L 11/06 Unknown MEAN GLUC 6431898 Calc Mean Gluc 111 mg/dL 11/25/2015 [place] [address] Glucose 89 MG/DL 02/19 [place] [address] CREATININE 1.12 MG/DL [place] [address] BUN 20 MG/DL 02/19 [place] [address] SODIUM 139 MMOL/L 02/04 [place] [address] POTASSIUM 4.6 MMOL/L 02/04 [place] [address] CHLORIDE 108 MMOL/L 02/04 [place] [address] BICARB 26 MMOL/L 02/19 [place] [address] ANION GAP 5 MEQ/L 02/19 [place] [address] CALCIUM 10.0 MG/DL 02/04 Unknown GFR CALC 0098087 GFR AA 57.0L ML/MIN 02/19/2015 Unknow n GFR CALC 6720007 GFR NON-AA 47.0L ML/MIN 02/19/2015 Unkno wn THYROID STIMULATING HORMONE 86736 TSH 2.378 uIU/ML 11/14/2014 Unknown COMPLETE BLOOD COUNT 8550429 WBC 6.4 10e9/L 11/15/19 15 Unknown COMPLETE BLOOD COUNT 3980549 RBC 3.99 10e12/L 2014 Unknown COMPLETE BLOOD COUNT 3889504 HGB 11.9 g/dL 5 Unknown COMPLETE BLOOD COUNT 2761452 HCT DET 36.9 % 5 Unknown COMPLETE BLOOD COUNT 7179438 MCV 92.5 fL 5 Unknown COMPLETE BLOOD COUNT 4620640 MCH 29.8 pg 5 Unknown COMPLETE BLOOD COUNT 2404859 MCHC 32.2 g/dL 5 Unknown COMPLETE BLOOD COUNT 9942287 PLT 172 10e9/L 11/15/19 15 Unknown COMPLETE BLOOD COUNT 8920590 MPV 11.7 fL 5 Unknown COMPLETE BLOOD COUNT 0176358 [place] % 40.4 % 5 Unknown COMPLETE BLOOD COUNT 1883527 LY % 48.0 % 5 Unknown COMPLETE BLOOD COUNT 7833131 MON % 8.3 % 5 Unknown COMPLETE BLOOD COUNT 4936770 EOS % 2.8 % 5 Unknown COMPLETE BLOOD COUNT 6929518 BASO % 0.5 % 5 Unknown COMPLETE BLOOD COUNT 7931634 RDW 13.6 % 5 Unknown COMPLETE BLOOD COUNT 9557020 ABS CINTHYA 2.59 10e9/L 015 Unknown COMPLETE BLOOD COUNT 3384534 ABS LYMPH 3.07 10e9/L 015 Unknown COMPLETE BLOOD COUNT 7820526 ABS MONO 0.53 10e9/L 015 Unknown COMPLETE BLOOD COUNT 6656253 ABS EOS 0.18 10e9/L 015 Unknown COMPLETE BLOOD COUNT 0389527 ABS BASO 0.03 10e9/L 015 Unknown COMPLETE BLOOD COUNT 1396758 RDW-SD 44.9 fL 5 Unknown LIPID GROUP 78942 HDL TEST 42 MG/DL 11/14/2014 Unknown LIPID GROUP 08250 TRIG 177 MG/DL 11/14/2014 Unknown LIPID GROUP 43833 TEST LDL 72 MG/DL 11/14/2014 Unknown LIPID GROUP 53468 CHOL 149 MG/DL 11/14/2014 Unknown LIPID GROUP 12621 RCHOL/HDL 3.55 RATIO 11/14/2014 Unknow n LIPID GROUP 66563 NON-HDL CH 107 MG/DL 11/14/2014 Unknow n GLYCOSYLATED HEMOGLOBIN TEST 66265 A1C HPLC 51934-7 5.5 % 0 11/14/2014 Unknown FREE T4 80764 FREE T4 1.39 NG/DL 11/14/2014 Unknown GFR CALC 8056581 GFR AA 55.0L ML/MIN 11/14/2014 Unknow n GFR CALC 0024965 GFR NON-AA 46.0L ML/MIN 11/14/2014 Unkno wn COMPREHENSIVE METABOLIC 77159 AST 17 U/L 2014 Unknown COMPREHENSIVE METABOLIC 84587 ALT 10 IU/L 2014 Unknown COMPREHENSIVE METABOLIC 13186 BUN 20 MG/DL 2014 Unknown COMPREHENSIVE METABOLIC 63282 ALBUMIN 3.9 GM/DL 2014 Unknown COMPREHENSIVE METABOLIC 54227 CHLORIDE 111 MMOL/L 11/14 Unknown COMPREHENSIVE METABOLIC 41666 BILI TOT 0.4 MG/DL 2014 Unknown COMPREHENSIVE METABOLIC 06274 ALK PHOS 70 U/L 2014 Unknown COMPREHENSIVE METABOLIC 42800 SODIUM 142 MMOL/L 11/14 Unknown COMPREHENSIVE METABOLIC 84741 CREATININE 1.16 MG/DL 11/05 Unknown COMPREHENSIVE METABOLIC 58767 CALCIUM 9.4 MG/DL 2014 Unknown COMPREHENSIVE METABOLIC 12444 POTASSIUM 4.6 MMOL/L 11/14 Unknown COMPREHENSIVE METABOLIC 79770 PROT TOT 6.2 GM/DL 2014 Unknown COMPREHENSIVE METABOLIC 90697 Glucose 90 MG/DL 2014 Unknown COMPREHENSIVE METABOLIC 20864 BICARB 24 MMOL/L 2014 Unknown COMPREHENSIVE METABOLIC 21140 ANION GAP 7 MEQ/L 2014 Unknown THYROID STIMULATING HORMONE 72572 TSH 2.427 uIU/ML 05/10/2014 Unknown LIPID GROUP 31459 HDL TEST 47 MG/DL 05/10/2014 Unknown LIPID GROUP 01423 TRIG 145 MG/DL 05/10/2014 Unknown LIPID GROUP 53544 TEST LDL 73 MG/DL 05/10/2014 Unknown LIPID GROUP 89668 CHOL 149 MG/DL 05/10/2014 Unknown LIPID GROUP 87678 RCHOL/HDL 3.17 RATIO 05/10/2014 Unknow n LIPID GROUP 17629 NON-HDL CH 102 MG/DL 05/10/2014 Unknow n COMPREHENSIVE METABOLIC 37766 AST 17 U/L 2014 Unknown COMPREHENSIVE METABOLIC 42637 ALT 9 IU/L 2014 Unknown COMPREHENSIVE METABOLIC 57120 BUN 19 MG/DL 2014 Unknown COMPREHENSIVE METABOLIC 23835 ALBUMIN 4.3 GM/DL 2014 Unknown COMPREHENSIVE METABOLIC 44353 CHLORIDE 108 MMOL/L 05/10 Unknown COMPREHENSIVE METABOLIC 51785 BILI TOT 0.5 MG/DL 2014 Unknown COMPREHENSIVE METABOLIC 76159 ALK PHOS 68 U/L 2014 Unknown COMPREHENSIVE METABOLIC 66568 SODIUM 140 MMOL/L 05/10 Unknown COMPREHENSIVE METABOLIC 19347 CREATININE 1.08 MG/DL 08/2014 Unknown COMPREHENSIVE METABOLIC 13963 CALCIUM 9.9 MG/DL 2014 Unknown COMPREHENSIVE METABOLIC 95019 POTASSIUM 4.3 MMOL/L 05/10 Unknown COMPREHENSIVE METABOLIC 81200 PROT TOT 7.2 GM/DL 2014 Unknown COMPREHENSIVE METABOLIC 92261 Glucose 94 MG/DL 2014 Unknown COMPREHENSIVE METABOLIC 57921 BICARB 26 MMOL/L 2014 Unknown COMPREHENSIVE METABOLIC 48703 ANION GAP 6 MEQ/L 2014 Unknown GFR CALC 0956413 GFR AA 60.0L ML/MIN 05/10/2014 Unknow n GFR CALC 2117485 GFR NON-AA 49.0L ML/MIN 05/10/2014 Unkno wn GLYCOSYLATED HEMOGLOBIN TEST 33736 A1C HPLC 28379-4 5.6 % 0 05/10/2014 Unknown COMPLETE BLOOD COUNT 3493680 WBC 7.2 10e9/L 05/11/19 15 Unknown COMPLETE BLOOD COUNT 4831153 RBC 4.28 10e12/L 2014 Unknown COMPLETE BLOOD COUNT 5880433 HGB 12.8 g/dL 5 Unknown COMPLETE BLOOD COUNT 5563559 HCT DET 39.3 % 5 Unknown COMPLETE BLOOD COUNT 3623217 MCV 91.8 fL 5 Unknown COMPLETE BLOOD COUNT 2864787 MCH 29.9 pg 5 Unknown COMPLETE BLOOD COUNT 1918903 MCHC 32.6 g/dL 5 Unknown COMPLETE BLOOD COUNT 2922223 PLT 189 10e9/L 05/11/19 15 Unknown COMPLETE BLOOD COUNT 6327320 MPV 11.2 fL 5 Unknown COMPLETE BLOOD COUNT 5284112 [place] % 38.0 % 5 Unknown COMPLETE BLOOD COUNT 9747947 LY % 51.0 % 5 Unknown COMPLETE BLOOD COUNT 5831001 MON % 7.7 % 5 Unknown COMPLETE BLOOD COUNT 8126898 EOS % 2.9 % 5 Unknown COMPLETE BLOOD COUNT 2849118 BASO % 0.4 % 5 Unknown COMPLETE BLOOD COUNT 5156942 RDW 14.0 % 5 Unknown COMPLETE BLOOD COUNT 0396880 ABS CINTHYA 2.74 10e9/L 015 Unknown COMPLETE BLOOD COUNT 8204807 ABS LYMPH 3.67 10e9/L 015 Unknown COMPLETE BLOOD COUNT 2236804 ABS MONO 0.55 10e9/L 015 Unknown COMPLETE BLOOD COUNT 4096373 ABS EOS 0.21 10e9/L 015 Unknown COMPLETE BLOOD COUNT 6930148 ABS BASO 0.03 10e9/L 015 Unknown COMPLETE BLOOD COUNT 7549706 RDW-SD 46.1 fL 5 Unknown FREE T4 45835 FREE T4 1.14 NG/DL 05/10/2014 Unknown GLYCOSYLATED HEMOGLOBIN TEST 44332 A1C HPLC 23614-8 5.2 % 0 03/29/2013 Unknown FREE T4 20992 FREE T4 1.40 NG/DL 03/28/2013 Unknown GFR CALC 7960007 GFR AA >60 ML/MIN 03/28/2013 Unknown GFR CALC 2117134 GFR NON-AA 52.0L ML/MIN 03/28/2013 Unkno wn COMPREHENSIVE METABOLIC 76642 AST 15 U/L 2013 Unknown COMPREHENSIVE METABOLIC 47904 ALT 9 IU/L 2013 Unknown COMPREHENSIVE METABOLIC 82683 BUN 17 MG/DL 2013 Unknown COMPREHENSIVE METABOLIC 80104 ALBUMIN 4.0 GM/DL 2013 Unknown COMPREHENSIVE METABOLIC 72659 CHLORIDE 112 MMOL/L 03/28 Unknown COMPREHENSIVE METABOLIC 64682 BILI TOT 0.5 MG/DL 2013 Unknown COMPREHENSIVE METABOLIC 22758 ALK PHOS 66 U/L 2013 Unknown COMPREHENSIVE METABOLIC 42072 SODIUM 140 MMOL/L 03/28 Unknown COMPREHENSIVE METABOLIC 78316 CREATININE 1.03 MG/DL 03/08 Unknown COMPREHENSIVE METABOLIC 40908 CALCIUM 9.5 MG/DL 2013 Unknown COMPREHENSIVE METABOLIC 34162 POTASSIUM 4.1 MMOL/L 03/28 Unknown COMPREHENSIVE METABOLIC 19820 PROT TOT 6.2 GM/DL 2013 Unknown COMPREHENSIVE METABOLIC 33329 Glucose 102 MG/DL 2013 Unknown COMPREHENSIVE METABOLIC 37577 BICARB 23 MMOL/L 2013 Unknown COMPREHENSIVE METABOLIC 12912 ANION GAP 5 MEQ/L 2013 Unknown THYROID STIMULATING HORMONE 12712 TSH 2.074 uIU/ML 03/28/2013 Unknown VITAMIN B 12 FOLIC ACID 06027|27642 VIT B 12 423 PG/ML 03/08 Unknown VITAMIN B 12 FOLIC ACID 46811|35991 FOLIC ACID 19.7 NG/ML Unknown LIPID GROUP 97753 HDL TEST 40 MG/DL 03/28/2013 Unknown LIPID GROUP 99723 TRIG 145 MG/DL 03/28/2013 Unknown LIPID GROUP 13486 TEST LDL 81 MG/DL 03/28/2013 Unknown LIPID GROUP 39419 CHOL 150 MG/DL 03/28/2013 Unknown LIPID GROUP 38168 RCHOL/HDL 3.75 RATIO 03/28/2013 Unknow n COMPLETE BLOOD COUNT 2268263 WBC 6.0 10e9/L 03/28/19 14 Unknown COMPLETE BLOOD COUNT 7823100 RBC 4.26 10e12/L 2013 Unknown COMPLETE BLOOD COUNT 0441146 HGB 12.7 g/dL 4 Unknown COMPLETE BLOOD COUNT 5191107 HCT DET 38.7 % 4 Unknown COMPLETE BLOOD COUNT 8782492 MCV 90.8 fL 4 Unknown COMPLETE BLOOD COUNT 0154175 MCH 29.8 pg 4 Unknown COMPLETE BLOOD COUNT 5358703 MCHC 32.8 g/dL 4 Unknown COMPLETE BLOOD COUNT 6939111 PLT 178 10e9/L 03/28/19 14 Unknown COMPLETE BLOOD COUNT 5010073 MPV 11.7 fL 4 Unknown COMPLETE BLOOD COUNT 6300107 C[place]TH[place] % 30.5 % 4 Unknown COMPLETE BLOOD COUNT 0936181 LY % 55.4 % 4 Unknown COMPLETE BLOOD COUNT 9172091 MON % 9.0 % 4 Unknown COMPLETE BLOOD COUNT 5478556 EOS % 4.4 % 4 Unknown COMPLETE BLOOD COUNT 7877541 BASO % 0.7 % 4 Unknown COMPLETE BLOOD COUNT 8219101 RDW 13.3 % 4 Unknown COMPLETE BLOOD COUNT 4950394 ABS CINTHYA 1.83 10e9/L 014 Unknown COMPLETE BLOOD COUNT 6783333 ABS LYMPH 3.32 10e9/L 014 Unknown COMPLETE BLOOD COUNT 4293821 ABS MONO 0.54 10e9/L 014 Unknown COMPLETE BLOOD COUNT 5162712 ABS EOS 0.26 10e9/L 014 Unknown COMPLETE BLOOD COUNT 5460977 ABS BASO 0.04 10e9/L 014 Unknown COMPLETE BLOOD COUNT 1388657 RDW-SD 43.2 fL 4 Unknown HEMOGLOBIN A1C (GLYCOSYLATED) 7856617 A1C [facility] 71208-1 5.5 % 02/24/2012 Unknown COMPLETE BLOOD COUNT 3433438 WBC 6.0 10e9/L 02/23/20 12 Unknown COMPLETE BLOOD COUNT 1234097 RBC 4.22 10e12/L 2011 Unknown COMPLETE BLOOD COUNT 6122221 HGB 12.4 g/dL 2 Unknown COMPLETE BLOOD COUNT 1204930 HCT DET 38.2 % 2 Unknown COMPLETE BLOOD COUNT 9162061 MCV 90.5 fL 2 Unknown COMPLETE BLOOD COUNT 3641941 MCH 29.4 pg 2 Unknown COMPLETE BLOOD COUNT 1763815 MCHC 32.5 g/dL 2 Unknown COMPLETE BLOOD COUNT 9230063 PLT 187 10e9/L 02/23/20 12 Unknown COMPLETE BLOOD COUNT 2563712 MPV 11.5 fL 2 Unknown COMPLETE BLOOD COUNT 4735347 CINTHYA % 36.4 % 2 Unknown COMPLETE BLOOD COUNT 8850693 LY % 51.0 % 2 Unknown COMPLETE BLOOD COUNT 1512651 MON % 8.7 % 2 Unknown COMPLETE BLOOD COUNT 2434622 EOS % 3.2 % 2 Unknown COMPLETE BLOOD COUNT 3548823 BASO % 0.7 % 2 Unknown COMPLETE BLOOD COUNT 4378032 RDW 13.7 % 2 Unknown COMPLETE BLOOD COUNT 6583317 ABS CINTHYA 2.18 10e9/L 012 Unknown COMPLETE BLOOD COUNT 9173604 ABS LYMPH 3.06 10e9/L 012 Unknown COMPLETE BLOOD COUNT 4044134 ABS MONO 0.52 10e9/L 012 Unknown COMPLETE BLOOD COUNT 8660847 ABS EOS 0.19 10e9/L 012 Unknown COMPLETE BLOOD COUNT 5262367 ABS BASO 0.04 10e9/L 012 Unknown COMPLETE BLOOD COUNT 3746763 RDW-SD 44.3 fL 2 Unknown LIPID GROUP 24214 HDL TEST 42 MG/DL 02/23/2012 Unknown LIPID GROUP 68816 TRIG 156 MG/DL 02/23/2012 Unknown LIPID GROUP 51723 TEST LDL 80 MG/DL 02/23/2012 Unknown LIPID GROUP 25180 CHOL 153 MG/DL 02/23/2012 Unknown LIPID GROUP 22946 RCHOL/HDL 3.64 RATIO 02/23/2012 Unknow n FREE T4 36112 FREE T4 1.22 NG/DL 02/23/2012 Unknown COMPREHENSIVE METABOLIC 85879 AST 20 U/L 2011 Unknown COMPREHENSIVE METABOLIC 06499 ALT 11 IU/L 2011 Unknown COMPREHENSIVE METABOLIC 40579 BUN 19 MG/DL 2011 Unknown COMPREHENSIVE METABOLIC 92870 ALBUMIN 4.3 GM/DL 2011 Unknown COMPREHENSIVE METABOLIC 45975 CHLORIDE 109 MMOL/L 02/22 Unknown COMPREHENSIVE METABOLIC 14603 BILI TOT 0.6 MG/DL 2011 Unknown COMPREHENSIVE METABOLIC 69783 ALK PHOS 84 U/L 2011 Unknown COMPREHENSIVE METABOLIC 62135 SODIUM 142 MMOL/L 02/22 Unknown COMPREHENSIVE METABOLIC 99788 CREATININE 1.09 MG/DL 02/04 Unknown COMPREHENSIVE METABOLIC 39238 CALCIUM 9.8 MG/DL 2011 Unknown COMPREHENSIVE METABOLIC 51538 POTASSIUM 4.2 MMOL/L 02/22 Unknown COMPREHENSIVE METABOLIC 41378 PROT TOT 6.4 GM/DL 2011 Unknown COMPREHENSIVE METABOLIC 63810 Glucose 89 MG/DL 2011 Unknown COMPREHENSIVE METABOLIC 24037 BICARB 25 MMOL/L 2011 Unknown COMPREHENSIVE METABOLIC 22091 ANION GAP 8 MEQ/L 2011 Unknown GFR CALC 8835585 GFR AA 60.0L ML/MIN 02/23/2012 Unknow n GFR CALC 6434096 GFR NON-AA 49.0L ML/MIN 02/23/2012 Unkno wn THYROID STIMULATING HORMONE 68329 TSH 2.450 uIU/ML 02/23/2012 Unknown COMPREHENSIVE METABOLIC 31527 AST 22 U/L 2011 Unknown COMPREHENSIVE METABOLIC 81879 ALT 14 IU/L 2011 Unknown COMPREHENSIVE METABOLIC 16985 BUN 21 MG/DL 2011 Unknown COMPREHENSIVE METABOLIC 55127 ALBUMIN 4.3 GM/DL 2011 Unknown COMPREHENSIVE METABOLIC 23887 CHLORIDE 106 MMOL/L 04/01 Unknown COMPREHENSIVE METABOLIC 57749 BILI TOT 0.4 MG/DL 2011 Unknown COMPREHENSIVE METABOLIC 33367 ALK PHOS 80 U/L 2011 Unknown COMPREHENSIVE METABOLIC 15267 SODIUM 141 MMOL/L 04/01 Unknown COMPREHENSIVE METABOLIC 00603 CREATININE 1.13 MG/DL 03/08 Unknown COMPREHENSIVE METABOLIC 02006 CALCIUM 9.4 MG/DL 2011 Unknown COMPREHENSIVE METABOLIC 79704 POTASSIUM 4.3 MMOL/L 04/01 Unknown COMPREHENSIVE METABOLIC 22932 PROT TOT 6.7 GM/DL 2011 Unknown COMPREHENSIVE METABOLIC 66604 Glucose 98 MG/DL 2011 Unknown COMPREHENSIVE METABOLIC 75504 BICARB 25 MMOL/L 2011 Unknown COMPREHENSIVE METABOLIC 19000 ANION GAP 10 MEQ/L 2011 Unknown LIPID GROUP 82899 HDL TEST 44 MG/DL 04/01/2011 Unknown LIPID GROUP 18380 TRIG 164 MG/DL 04/01/2011 Unknown LIPID GROUP 07261 TEST LDL 98 MG/DL 04/01/2011 Unknown LIPID GROUP 86733 CHOL 175 MG/DL 04/01/2011 Unknown LIPID GROUP 75820 RCHOL/HDL 3.98 RATIO 04/01/2011 Unknow n COMPLETE BLOOD COUNT 63679 WBC 6.7 10e9/L 04/01/19 12 Unknown COMPLETE BLOOD COUNT 21049 RBC 4.36 10e12/L 2011 Unknown COMPLETE BLOOD COUNT 47700 HGB 12.9 g/dL 2 Unknown COMPLETE BLOOD COUNT 02864 HCT DET 39.4 % 2 Unknown COMPLETE BLOOD COUNT 27707 MCV 90.4 fL 2 Unknown COMPLETE BLOOD COUNT 49542 MCH 29.6 pg 2 Unknown COMPLETE BLOOD COUNT 90663 MCHC 32.7 g/dL 2 Unknown COMPLETE BLOOD COUNT 90810 PLT 184 10e9/L 04/01/19 12 Unknown COMPLETE BLOOD COUNT 27095 MPV 10.9 fL 2 Unknown COMPLETE BLOOD COUNT 66171 CINTHYA % 41.5 % 2 Unknown COMPLETE BLOOD COUNT 77455 LY % 45.7 % 2 Unknown COMPLETE BLOOD COUNT 90776 MON % 9.4 % 2 Unknown COMPLETE BLOOD COUNT 67693 EOS % 3.0 % 2 Unknown COMPLETE BLOOD COUNT 14718 BASO % 0.4 % 2 Unknown COMPLETE BLOOD COUNT 62197 RDW 13.2 % 2 Unknown COMPLETE BLOOD COUNT 43719 ABS CINTHYA 2.78 10e9/L 012 Unknown COMPLETE BLOOD COUNT 53726 ABS LYMPH 3.06 10e9/L 012 Unknown COMPLETE BLOOD COUNT 90745 ABS MONO 0.63 10e9/L 012 Unknown COMPLETE BLOOD COUNT 37703 ABS EOS 0.20 10e9/L 012 Unknown COMPLETE BLOOD COUNT 80693 ABS BASO 0.03 10e9/L 012 Unknown COMPLETE BLOOD COUNT 87824 RDW-SD 42.3 fL 2 Unknown GFR CALC 8845248 GFR AA 57.0L ML/MIN 04/01/2011 Unknow n GFR CALC 8665721 GFR NON-AA 47.0L ML/MIN 04/01/2011 Unkno wn THYROID STIMULATING HORMONE 27189 TSH 2.663 uIU/ML 04/01/2011 Unknown FREE T4 50540 FREE T4 1.15 NG/DL 04/01/2011 Unknown THYROID STIMULATING HORMONE 81289 TSH 1.908 uIU/ML 07/06/2010 Unknown COMPLETE BLOOD COUNT 85454 WBC 6.4 10e9/L 07/07/19 11 Unknown COMPLETE BLOOD COUNT 04493 RBC 3.92 10e12/L 2010 Unknown COMPLETE BLOOD COUNT 62496 HGB 11.8 g/dL 1 Unknown COMPLETE BLOOD COUNT 96010 HCT DET 36.0 % 1 Unknown COMPLETE BLOOD COUNT 52167 MCV 91.8 fL 1 Unknown COMPLETE BLOOD COUNT 05473 MCH 30.1 pg 1 Unknown COMPLETE BLOOD COUNT 05305 MCHC 32.8 g/dL 1 Unknown COMPLETE BLOOD COUNT 80840 PLT 176 10e9/L 07/07/19 11 Unknown COMPLETE BLOOD COUNT 29325 MPV 11.4 fL 1 Unknown COMPLETE BLOOD COUNT 02630 CINTHYA % 50.4 % 1 Unknown COMPLETE BLOOD COUNT 74822 LY % 35.5 % 1 Unknown COMPLETE BLOOD COUNT 97208 MON % 10.2 % 1 Unknown COMPLETE BLOOD COUNT 85891 EOS % 3.3 % 1 Unknown COMPLETE BLOOD COUNT 19754 BASO % 0.6 % 1 Unknown COMPLETE BLOOD COUNT 68736 RDW 13.7 % 1 Unknown COMPLETE BLOOD COUNT 39115 ABS CINTHYA 3.23 10e9/L 011 Unknown COMPLETE BLOOD COUNT 96669 ABS LYMPH 2.27 10e9/L 011 Unknown COMPLETE BLOOD COUNT 35254 ABS MONO 0.65 10e9/L 011 Unknown COMPLETE BLOOD COUNT 38206 ABS EOS 0.21 10e9/L 011 Unknown COMPLETE BLOOD COUNT 85284 ABS BASO 0.04 10e9/L 011 Unknown COMPLETE BLOOD COUNT 33229 RDW-SD 45.3 fL 1 Unknown GFR CALC [id number] GFR AA >60 ML/MIN 07/06/2010 Unknown GFR CALC [id number] GFR NON-AA 53.0L ML/MIN 07/06/2010 Unkno wn FREE T4 61839 FREE T4 1.20 NG/DL 07/06/2010 Unknown COMPREHENSIVE METABOLIC 86350 AST 17 U/L 2010 Unknown COMPREHENSIVE METABOLIC 63851 ALT 9 IU/L 2010 Unknown COMPREHENSIVE METABOLIC 55456 BUN 16 MG/DL 2010 Unknown COMPREHENSIVE METABOLIC 03069 ALBUMIN 4.0 GM/DL 2010 Unknown COMPREHENSIVE METABOLIC 66879 CHLORIDE 108 MMOL/L 07/06 Unknown COMPREHENSIVE METABOLIC 21471 BILI TOT 0.5 MG/DL 2010 Unknown COMPREHENSIVE METABOLIC 52777 ALK PHOS 76 U/L 2010 Unknown COMPREHENSIVE METABOLIC 96018 SODIUM 139 MMOL/L 07/06 Unknown COMPREHENSIVE METABOLIC 09359 CREATININE 1.02 MG/DL 04/2010 Unknown COMPREHENSIVE METABOLIC 39541 CALCIUM 9.2 MG/DL 2010 Unknown COMPREHENSIVE METABOLIC 73986 POTASSIUM 4.5 MMOL/L 07/06 Unknown COMPREHENSIVE METABOLIC 39842 PROT TOT 6.1 GM/DL 2010 Unknown COMPREHENSIVE METABOLIC 84771 Glucose 93 MG/DL 2010 Unknown COMPREHENSIVE METABOLIC 15053 BICARB 26 MMOL/L 2010 Unknown COMPREHENSIVE METABOLIC 25630 ANION GAP 5 MEQ/L 2010 Unknown LIPID GROUP 34250 HDL TEST 46 MG/DL 07/06/2010 Unknown LIPID GROUP 77498 TRIG 102 MG/DL 07/06/2010 Unknown LIPID GROUP 85010 TEST LDL 88 MG/DL 07/06/2010 Unknown LIPID GROUP 94581 CHOL 154 MG/DL 07/06/2010 Unknown LIPID GROUP 26063 RCHOL/HDL 3.35 RATIO 07/06/2010 Unknow n Procedures Procedure Codes Date ROUTINE VENIPUNCTURE CPT-4: 40060 03/13/2019 ASSAY THYROID STIM HORMONE CPT-4: 03035 03/13/2019 COMPLETE CBC W/AUTO DIFF WBC CPT-4: 47863 03/13/2019 COMPREHEN METABOLIC PANEL CPT-4: 82716 03/13/2019 ROUTINE VENIPUNCTURE CPT-4: 34218 01/23/2019 LIPID PANEL CPT-4: 00649 01/23/2019 FLU VACC PRSV FREE INC ANTIG 65 AND OLDER CPT-4: [id number] 12/26/2018 FLU VACC PRSV FREE INC ANTIG 65 AND OLDER CPT-4: 70782 12/26/2018 ADMIN INFLUENZA VIRUS VAC CPT-4: G0008 12/26/2018 COMPREHEN METABOLIC PANEL CPT-4: 69757 12/15/2018 ROUTINE VENIPUNCTURE CPT-4: 24033 12/15/2018 ROUTINE VENIPUNCTURE CPT-4: 31700 08/14/2018 ASSAY THYROID STIM HORMONE CPT-4: 68956 08/14/2018 COMPREHEN METABOLIC PANEL CPT-4: 66018 08/14/2018 COMPLETE CBC W/AUTO DIFF WBC CPT-4: 24081 08/14/2018 URINALYSIS NONAUTO W/O SCOPE CPT-4: 14161 05/10/2018 URINE CULTURE/ COLONY COUNT CPT-4: 42824 05/10/2018 URINE CULTURE/ COLONY COUNT CPT-4: 71790 12/06/2017 ROUTINE VENIPUNCTURE CPT-4: 74397 11/30/2017 ASSAY OF FREE THYROXINE CPT-4: 66402 11/30/2017 ASSAY THYROID STIM HORMONE CPT-4: 70609 11/30/2017 COMPLETE CBC W/AUTO DIFF WBC CPT-4: 87563 11/30/2017 METABOLIC PANEL TOTAL CA CPT-4: 89814 11/30/2017 FLU VACC PRSV FREE INC ANTIG 65 AND OLDER CPT-4: 24079 11/22/2017 ASSAY, GLUCOSE, BLOOD QUANT CPT-4: 10890 11/22/2017 ADMIN INFLUENZA VIRUS VAC CPT-4: G0008 11/22/2017 ROUTINE VENIPUNCTURE CPT-4: 48559 09/27/2017 COMPREHEN METABOLIC PANEL CPT-4: 32004 09/27/2017 COMPLETE CBC W/AUTO DIFF WBC CPT-4: 83894 09/27/2017 A1C HPLC CPT-4: 83512 09/27/2017 ASSAY OF TROPONIN QUANT CPT-4: 17406 09/27/2017 LIPID PANEL CPT-4: 55910 09/27/2017 THER/PROPH/DIAG INJ SC/IM CPT-4: 46923 05/30/2017 TRIAMCINOLONE ACET INJ NOS CPT-4: J3301 05/30/2017 URINALYSIS NONAUTO W/O SCOPE CPT-4: 50630 04/18/2017 URINE CULTURE/ COLONY COUNT CPT-4: 76240 04/18/2017 FLU VACC PRSV FREE INC ANTIG 65 AND OLDER CPT-4: 96115 12/10/2016 ADMIN INFLUENZA VIRUS VAC CPT-4: G0008 12/10/2016 ROUTINE VENIPUNCTURE CPT-4: 57607 11/01/2016 COMPREHEN METABOLIC PANEL CPT-4: 23497 11/01/2016 COMPLETE CBC W/AUTO DIFF WBC CPT-4: 08967 11/01/2016 LIPID PANEL CPT-4: 97286 11/01/2016 A1C HPLC CPT-4: 50704 11/01/2016 ASSAY THYROID STIM HORMONE CPT-4: 64930 11/01/2016 ROUTINE VENIPUNCTURE CPT-4: 28853 05/13/2016 ASSAY THYROID STIM HORMONE CPT-4: 98483 05/13/2016 COMPREHEN METABOLIC PANEL CPT-4: 89669 05/13/2016 COMPLETE CBC W/AUTO DIFF WBC CPT-4: 00581 05/13/2016 A1C HPLC CPT-4: 59457 05/13/2016 FLU VACC PRSV FREE INC ANTIG 65 AND OLDER CPT-4: 38586 12/12/2015 ADMIN INFLUENZA VIRUS VAC CPT-4: G0008 12/12/2015 ROUTINE VENIPUNCTURE CPT-4: 61605 11/25/2015 ASSAY OF FREE THYROXINE CPT-4: 91154 11/25/2015 ASSAY THYROID STIM HORMONE CPT-4: 71700 11/25/2015 COMPREHEN METABOLIC PANEL CPT-4: 61646 11/25/2015 COMPLETE CBC W/AUTO DIFF WBC CPT-4: 91061 11/25/2015 LIPID PANEL CPT-4: 17016 11/25/2015 A1C HPLC CPT-4: 13212 11/25/2015 URINALYSIS NONAUTO W/O SCOPE CPT-4: 33996 05/21/2015 ROUTINE VENIPUNCTURE CPT-4: 93965 02/19/2015 METABOLIC PANEL TOTAL CA CPT-4: 50832 02/19/2015 PRESCRIP TRANSMIT VIA ERX SY CPT-4: G8553 02/19/2015 FLU VACC PRSV FREE INC ANTIG 65 AND OLDER CPT-4: 55648 12/20/2014 ADMIN INFLUENZA VIRUS VAC CPT-4: G0008 12/20/2014 URINALYSIS NONAUTO W/O SCOPE CPT-4: 50261 11/19/2014 URINE CULTURE/ COLONY COUNT CPT-4: 22033 11/19/2014 ROUTINE VENIPUNCTURE CPT-4: 11078 11/14/2014 ASSAY OF FREE THYROXINE CPT-4: 72577 11/14/2014 ASSAY THYROID STIM HORMONE CPT-4: 29249 11/14/2014 COMPREHEN METABOLIC PANEL CPT-4: 16620 11/14/2014 COMPLETE CBC W/AUTO DIFF WBC CPT-4: 04502 11/14/2014 LIPID PANEL CPT-4: 61432 11/14/2014 A1C HPLC CPT-4: 35740 11/14/2014 CERUM REMOVAL CPT-4: 13482 09/27/2014 PRESCRIP TRANSMIT VIA ERX SY CPT-4: G8553 07/11/2014 FLUZONE, 5ML (Medicare) CPT-4: Q2038 12/21/2013 ADMIN INFLUENZA VIRUS VAC CPT-4: G0008 12/21/2013 PRESCRIP TRANSMIT VIA ERX SY CPT-4: G8553 10/17/2013 PRESCRIP TRANSMIT VIA ERX SY CPT-4: G8553 09/24/2013 PRESCRIP TRANSMIT VIA ERX SY CPT-4: G8553 05/31/2013 ROUTINE VENIPUNCTURE CPT-4: 48328 03/28/2013 ASSAY OF FREE THYROXINE CPT-4: 21431 03/28/2013 ASSAY THYROID STIM HORMONE CPT-4: 40800 03/28/2013 COMPREHEN METABOLIC PANEL CPT-4: 87728 03/28/2013 COMPLETE CBC W/AUTO DIFF WBC CPT-4: 13704 03/28/2013 LIPID PANEL CPT-4: 88915 03/28/2013 A1C HPLC CPT-4: 12603 03/28/2013 VITAMIN B 12 FOLIC ACID CPT-4: 24432|63733 03/28/2013 PRESCRIP TRANSMIT VIA ERX SY CPT-4: G8553 03/26/2013 PRESCRIP TRANSMIT VIA ERX SY CPT-4: G8553 12/19/2012 FLUZONE, 5ML (Medicare) CPT-4: Q2038 11/27/2012 ADMIN INFLUENZA VIRUS VAC CPT-4: G0008 11/27/2012 PRESCRIP TRANSMIT VIA ERX SY CPT-4: G8553 10/04/2012 PRESCRIP TRANSMIT VIA ERX SY CPT-4: G8553 07/14/2012 ROUTINE VENIPUNCTURE CPT-4: 12514 02/23/2012 ASSAY OF FREE THYROXINE CPT-4: 19278 02/23/2012 ASSAY THYROID STIM HORMONE CPT-4: 87939 02/23/2012 COMPREHEN METABOLIC PANEL CPT-4: 15541 02/23/2012 COMPLETE CBC W/AUTO DIFF WBC CPT-4: 79851 02/23/2012 LIPID PANEL CPT-4: 89057 02/23/2012 A1C GLYCOSYLATED HEMOGLOBIN TEST CPT-4: 40240 012 CERUM REMOVAL CPT-4: 82326 02/22/2012 PRESCRIP TRANSMIT VIA ERX SY CPT-4: G8553 02/22/2012 PRESCRIP TRANSMIT VIA ERX SY CPT-4: G8553 12/15/2011 FLUZONE, 5ML (Medicare) CPT-4: Q2038 12/02/2011 ADMIN INFLUENZA VIRUS VAC CPT-4: G0008 12/02/2011 ASSAY, GLUCOSE, BLOOD QUANT CPT-4: 87893 09/21/2011 URINALYSIS NONAUTO W/O SCOPE CPT-4: 98320 09/16/2011 URINE CULTURE/ COLONY COUNT CPT-4: 31108 09/16/2011 ROUTINE VENIPUNCTURE CPT-4: 83453 09/15/2011 ASSAY OF FREE THYROXINE CPT-4: 36691 09/15/2011 ASSAY THYROID STIM HORMONE CPT-4: 59837 09/15/2011 COMPREHEN METABOLIC PANEL CPT-4: 59270 09/15/2011 COMPLETE CBC W/AUTO DIFF WBC CPT-4: 14352 09/15/2011 LIPID PANEL CPT-4: 96490 09/15/2011 ASSAY OF INSULIN CPT-4: 07502 09/15/2011 A1C GLYCOSYLATED HEMOGLOBIN TEST CPT-4: 57590 012 DRAIN/INJECT JOINT/BURSA CPT-4: 74411 08/16/2011 METHYLPREDNISOLONE 40 MG INJ CPT-4: J1030 08/16/2011 TRIAMCINOLONE ACET INJ NOS CPT-4: J3301 08/16/2011 PRESCRIP TRANSMIT VIA ERX SY CPT-4: G8553 08/03/2011 PRESCRIP TRANSMIT VIA ERX SY CPT-4: G8553 07/26/2011 METHYLPREDNISOLONE 40 MG INJ CPT-4: J1030 06/28/2011 DRAIN/INJECT JOINT/BURSA CPT-4: 76132 06/28/2011 TRIAMCINOLONE ACET INJ NOS CPT-4: J3301 06/28/2011 PRESCRIP TRANSMIT VIA ERX SY CPT-4: G8553 06/28/2011 ROUTINE VENIPUNCTURE CPT-4: 35144 04/01/2011 ASSAY OF FREE THYROXINE CPT-4: 95618 04/01/2011 ASSAY THYROID STIM HORMONE CPT-4: 09105 04/01/2011 COMPREHEN METABOLIC PANEL CPT-4: 95319 04/01/2011 COMPLETE CBC W/AUTO DIFF WBC CPT-4: 96981 04/01/2011 LIPID PANEL CPT-4: 03424 04/01/2011 PRESCRIP TRANSMIT VIA ERX SY CPT-4: G8553 03/31/2011 CERUM REMOVAL CPT-4: 55973 02/11/2011 PRESCRIP TRANSMIT VIA ERX SY CPT-4: G8553 02/11/2011 FLUZONE, 5ML (Medicare) CPT-4: Q2038 12/09/2010 ADMIN INFLUENZA VIRUS VAC CPT-4: G0008 12/09/2010 PRESCRIP TRANSMIT VIA ERX SY CPT-4: G8553 10/15/2010 URINALYSIS NONAUTO W/O SCOPE CPT-4: 90732 09/29/2010 URINE CULTURE/ COLONY COUNT CPT-4: 98228 09/29/2010 CUR TOBACCO NON-USER CPT-4: G8457 09/29/2010 ROUTINE VENIPUNCTURE CPT-4: 02422 07/06/2010 COMPLETE CBC W/AUTO DIFF WBC CPT-4: 22891 07/06/2010 COMPREHEN METABOLIC PANEL CPT-4: 13298 07/06/2010 LIPID PANEL CPT-4: 57668 07/06/2010 ASSAY THYROID STIM HORMONE CPT-4: 92098 07/06/2010 ASSAY OF FREE THYROXINE CPT-4: 68096 07/06/2010 PRESCRIP TRANSMIT VIA ERX SY CPT-4: G8553 07/02/2010 INJ TRIGGER POINT 1/2 MUSCL CPT-4: 47523 04/06/2010 TRIAMCINOLONE ACET INJ NOS CPT-4: J3301 04/06/2010 METHYLPREDNISOLONE 40 MG INJ CPT-4: J1030 04/06/2010 THER/PROPH/DIAG INJ SC/IM CPT-4: 92391 04/01/2010 KETOROLAC TROMETHAMINE INJ CPT-4: J1885 04/01/2010 PRESCRIP TRANSMIT VIA ERX SY CPT-4: G8553 01/22/2010 FLU VACCINE 3 YRS & > IM UP 64 CPT-4: 01168 0 ADMIN INFLUENZA VIRUS VAC CPT-4: G0008 12/10/2009 URINALYSIS NONAUTO W/O SCOPE CPT-4: 43028 12/02/2009 URINE CULTURE/ COLONY COUNT CPT-4: 44657 12/02/2009 PRESCRIP TRANSMIT VIA ERX SY CPT-4: G8553 12/02/2009 THER/PROPH/DIAG INJ SC/IM CPT-4: 08951 09/10/2009 VITAMIN B12 INJECTION CPT-4: J3420 09/10/2009 THER/PROPH/DIAG INJ SC/IM CPT-4: 80322 08/11/2009 VITAMIN B12 INJECTION CPT-4: J3420 08/11/2009 ROUTINE VENIPUNCTURE CPT-4: 33436 06/10/2009 Vital Signs Date Vital 03/13/2019 Blood [...] 1: 142/60 Code: 8480-6 BMI: 38.2 Code: 79155-6 Heart Rate 1: 48 bpm Height: 5'2" Respiratory Rate: 20 bpm SpO2: 98% Tempera ture: 36.7 (C) / 98.1 (F) Weight: 212 lbs 01/10/2018 Blood Pressure 1: 142/64 Code: 8480-6 BMI: 38.5 Code: 47597-1 Heart Rate 1: 52 bpm Height: 5'2" Respiratory Rate: 22 bpm SpO2: 96% Tempera ture: 36.1 (C) / 96.9 (F) Weight: 214 lbs 12/06/2017 Blood Pressure 1: 124/80 Code: 8480-6 BMI: 38.3 Code: 15781-3 Heart Rate 1: 68 bpm Height: 5'2" Respiratory Rate: 20 bpm Temperature: 36 .3 (C) / 97.4 (F) Weight: 213 lbs 11/22/2017 Blood Pressure 1: 132/78 Code: 8480-6 BMI: 37.6 Code: 28446-4 Heart Rate 1: 68 bpm Height: 5'2" Respiratory Rate: 20 bpm SpO2: 97% Tempera ture: 36.8 (C) / 98.2 (F) Weight: 209 lbs 10/20/2017 Blood Pressure 1: 150/76 Code: 8480-6 BMI: 38.5 Code: 13643-1 Heart Rate 1: 64 bpm Height: 5'2" Respiratory Rate: 20 bpm SpO2: 97% Tempera ture: 36.2 (C) / 97.2 (F) Weight: 214 lbs 09/27/2017 Blood Pressure 1: 122/74 Code: 8480-6 BMI: 38.2 Code: 01588-5 Heart Rate 1: 64 bpm Height: 5'2" Respiratory Rate: 18 bpm SpO2: 96% Tempera ture: 35.8 (C) / 96.4 (F) Weight: 212 lbs 08/16/2017 Blood Pressure 1: 124/78 Code: 8480-6 BMI: 37.8 Code: 60924-5 Heart Rate 1: 76 bpm Height: 5'2" Respiratory Rate: 20 bpm Temperature: 36 .8 (C) / 98.3 (F) Weight: 210 lbs 07/07/2017 Blood Pressure 1: 136/70 Code: 8480-6 BMI: 38.0 Code: 04813-4 Heart Rate 1: 68 bpm Height: 5'2" Respiratory Rate: 20 bpm SpO2: 97% Tempera ture: 36.8 (C) / 98.2 (F) Weight: 211 lbs 05/30/2017 Blood Pressure 1: 140/65 Code: 8480-6 Heart Rate 1: 75 bpm Respiratory Rate: 24 bpm SpO2: 95% Temperature: 37.0 (C) / 98.6 (F) We ight: 211 lbs 04/18/2017 Blood Pressure 1: 154/70 Code: 8480-6 BMI: 37.6 Code: 86620-9 Heart Rate 1: 76 bpm Height: 5'2" Respiratory Rate: 20 bpm SpO2: 98% Tempera ture: 36.9 (C) / 98.5 (F) Weight: 209 lbs 10/25/2016 Blood Pressure 1: 156/70 Code: 8480-6 BMI: 37.1 Code: 07192-8 Heart Rate 1: 72 bpm Height: 5'2" Respiratory Rate: 20 bpm SpO2: 97% Tempera ture: 37.0 (C) / 98.6 (F) Weight: 206 lbs 09/20/2016 Blood Pressure 1: 152/78 Code: 8480-6 BMI: 36.8 Code: 05573-6 Heart Rate 1: 78 bpm Height: 5'2" Respiratory Rate: 20 bpm SpO2: 98% Tempera ture: 36.1 (C) / 97.0 (F) Weight: 204 lbs 05/12/2016 Blood Pressure 1: 142/70 Code: 8480-6 BMI: 36.9 Code: 56492-3 Heart Rate 1: 64 bpm Height: 5'2" [...] 1: 122/64 Code: 8480-6 BMI: 39.1 Code: 82344-4 Heart Rate 1: 76 bpm Height: 5'2" Respiratory Rate: 20 bpm Temperature: 36 .8 (C) / 98.2 (F) Weight: 217 lbs 05/21/2015 Blood Pressure 1: 144/70 Code: 8480-6 BMI: 39.4 Code: 14939-7 Heart Rate 1: 76 bpm Height: 5'2" Respiratory Rate: 20 bpm Temperature: 36 .6 (C) / 97.9 (F) Weight: 219 lbs 02/19/2015 Blood Pressure 1: 152/60 Code: 8480-6 BMI: 39.6 Code: 89499-9 Heart Rate 1: 84 bpm Height: 5'2" Respiratory Rate: 20 bpm Temperature: 37 .0 (C) / 98.6 (F) Weight: 220 lbs 11/13/2014 Blood Pressure 1: 146/76 Code: 8480-6 BMI: 39.8 Code: 67803-4 Heart Rate 1: 88 bpm Height: 5'2" Respiratory Rate: 20 bpm Temperature: 37 .0 (C) / 98.6 (F) Weight: 221 lbs 09/27/2014 Blood Pressure 1: 132/70 Code: 8480-6 BMI: 39.1 Code: 18109-7 Heart Rate 1: 88 bpm Height: 5'2" Respiratory Rate: 20 bpm Temperature: 36 .4 (C) / 97.6 (F) Weight: 217 lbs 07/11/2014 Blood Pressure 1: 132/66 Code: 8480-6 BMI: 39.9 Code: 90712-8 Heart Rate 1: 72 bpm Height: 5'2" Respiratory Rate: 20 bpm Temperature: 36 .9 (C) / 98.4 (F) Weight: 218 lbs 05/23/2014 Blood Pressure 1: 136/80 Code: 8480-6 Heart Rate 1: 76 bpm Respiratory Rate: 20 bpm Temperature: 36.7 (C) / 98.0 (F) Weight: 224 lbs 03/20/2014 Blood Pressure 1: 134/78 Code: 8480-6 BMI: 39.7 Code: 67543-3 Heart Rate 1: 84 bpm Height: 5'2" Respiratory Rate: 20 bpm Temperature: 36 .7 (C) / 98.0 (F) Weight: 217 lbs 10/17/2013 Blood Pressure 1: 146/78 Code: 8480-6 BMI: 39.5 Code: 87635-5 Heart Rate 1: 82 bpm Height: 5'2" Respiratory Rate: 18 bpm Temperature: 35 .6 (C) / 96.1 (F) Weight: 216 lbs 09/24/2013 Blood Pressure 1: 134/70 Code: 8480-6 BMI: 37.9 Code: 83915-8 Heart Rate 1: 80 bpm Height: 5'3" Respiratory Rate: 20 bpm Temperature: 36 .8 (C) / 98.2 (F) Weight: 214 lbs 05/31/2013 Blood Pressure 1: 132/70 Code: 8480-6 BMI: 37.6 Code: 93897-0 Heart Rate 1: 80 bpm Height: 5'3" Respiratory Rate: 20 bpm Temperature: 36 .8 (C) / 98.3 (F) Weight: 212 lbs 03/26/2013 Blood Pressure 1: 116/74 Code: 8480-6 Heart Rate 1: 68 bpm Respiratory Rate: 20 bpm Temperature: 36.2 (C) / 97.1 (F) Weight: 212 lbs 12/19/2012 Blood Pressure 1: 132/82 Code: 8480-6 BMI: 37.4 Code: 36779-5 Heart Rate 1: 76 bpm Height: 5'3" Respiratory Rate: 20 bpm Temperature: 36 .7 (C) / 98.0 (F) Weight: 211 lbs 12/04/2012 Blood Pressure 1: 130/76 Code: 8480-6 He art Rate 1: 78 bpm 11/27/2012 Blood Pressure 1: 140/82 Code: 8480-6 BMI: 36.8 Code: 46098-8 Heart Rate 1: 66 bpm Height: 5'3" Respiratory Rate: 20 bpm Temperature: 36 .1 (C) / 96.9 (F) Weight: 208 lbs 10/04/2012 Blood Pressure 1: 138/80 Code: 8480-6 BMI: 36.4 Code: 52202-0 Heart Rate 1: 72 bpm Height: 5'4" Respiratory Rate: 20 bpm Temperature: 36 .7 (C) / 98.0 (F) Weight: 212 lbs 07/27/2012 Blood Pressure 1: 124/70 Code: 8480-6 BMI: 36.9 Code: 34150-1 Heart Rate 1: 60 bpm Height: 5'4" Temperature: 36.1 (C) / 97.0 (F) Weight: 215 lbs 07/14/2012 Blood Pressure 1: 132/86 Code: 8480-6 BMI: 36.9 Code: 06906-0 Heart Rate 1: 76 bpm Height: 5'4" Respiratory Rate: 20 bpm Temperature: 36 .8 (C) / 98.2 (F) Weight: 215 lbs 06/08/2012 Blood Pressure 1: 134/82 Code: 8480-6 BMI: 36.6 Code: 48299-9 Heart Rate 1: 72 bpm Height: 5'4" Respiratory Rate: 20 bpm Temperature: 36 .3 (C) / 97.4 (F) Weight: 213 lbs 02/22/2012 Blood Pressure 1: 142/80 Code: 8480-6 BMI: 37.1 Code: 97063-2 Heart Rate 1: 76 bpm Height: 5'4" Respiratory Rate: 20 bpm Temperature: 36 .8 (C) / 98.3 (F) Weight: 216 lbs 12/28/2011 Blood Pressure 1: 128/68 Code: 8480-6 BMI: 37.6 Code: 43568-2 Heart Rate 1: 72 bpm Height: 5'4" [...] 1: 128/78 Code: 8480-6 BMI: 38.1 Code: 63372-4 Heart Rate 1: 84 bpm Height: 5'4" Respiratory Rate: 20 bpm Temperature: 36 .9 (C) / 98.4 (F) Weight: 222 lbs 08/16/2011 Blood Pressure 1: 138/80 Code: 8480-6 BMI: 37.9 Code: 54561-4 Heart Rate 1: 74 bpm Height: 5'4" Temperature: 36.1 (C) / 97.0 (F) Weight: 221 lbs 08/03/2011 Blood Pressure 1: 126/78 Code: 8480-6 BMI: 38.4 Code: 56472-5 Heart Rate 1: 72 bpm Height: 5'4" Respiratory Rate: 20 bpm Temperature: 36 .7 (C) / 98.0 (F) Weight: 224 lbs 07/26/2011 Blood Pressure 1: 138/72 Code: 8480-6 BMI: 38.4 Code: 23341-4 Heart Rate 1: 72 bpm Height: 5'4" Respiratory Rate: 20 bpm Temperature: 36 .6 (C) / 97.9 (F) Weight: 224 lbs 06/28/2011 Blood Pressure 1: 122/78 Code: 8480-6 BMI: 38.8 Code: 60527-3 Heart Rate 1: 88 bpm Height: 5'4" Respiratory Rate: 20 bpm Temperature: 36 .6 (C) / 97.8 (F) Weight: 226 lbs 03/31/2011 Blood Pressure 1: 116/60 Code: 8480-6 BMI: 38.1 Code: 31480-1 Heart Rate 1: 92 bpm Height: 5'4" Respiratory Rate: 20 bpm Temperature: 36 .8 (C) / 98.2 (F) Weight: 222 lbs 02/11/2011 Blood Pressure 1: 118/62 Code: 8480-6 BMI: 37.9 Code: 06349-9 Heart Rate 1: 80 bpm Height: 5'4" Temperature: 36.5 (C) / 97.7 (F) Weight: 221 lbs 10/15/2010 Blood Pressure 1: 132/70 Code: 8480-6 Heart Rate 1: 84 bpm Respiratory Rate: 20 bpm Temperature: 36.7 (C) / 98.0 (F) Weight: 221 lbs 09/29/2010 Blood Pressure 1: 114/72 Code: 8480-6 BMI: 37.6 Code: 49971-3 Heart Rate 1: 76 bpm Height: 5'4" [...] 1: 120/70 Code: 8480-6 BMI: 38.3 Code: 62351-8 Heart Rate 1: 88 bpm Height: 5'5" [...] 09/27/2014 pain, limb 07/11/2014 follow up 05/23/2014 [facility] fwup high blood pressure 03/20/2014 injection(s) [...] 06/09/2009 Encounters Encounter Performer Location Codes Date ([id number]) OFFICE/OUTPATIENT VISIT EST Diagnosis: Essential hypertension[ICD10: I10] Diagnosis: Palpitations[ICD10: R00.2] Diagnosis: Stress reaction[ICD10: F43.0] Vikki GUAMAN [employer] CPT-4: 59205 03/13/2019 ([id number]) NURSE/OUTPATIENT VISIT EST Diagnosis: Mixed hyperlipidemia[ICD10: E78.2] Vikki GUAMAN [employer] CPT-4: 86539 01/23/2019 ([id number]) NURSE/OUTPATIENT VISIT EST Diagnosis: FLU VACCINE[ICD10: Z23] Vikki BALL [employer] CPT-4: 20560 12/26/2018 ([id number]) NURSE/OUTPATIENT VISIT EST Diagnosis: Chronic kidney disease, stage 1[ICD10: N18.1] Vikki GUAMAN [employer] CPT-4: 40799 12/15/2018 ([id number]) OFFICE/OUTPATIENT VISIT EST Diagnosis: Acute serous otitis media, left ear[ICD10: H65.02] Jennifer GUAMAN [employer] CPT-4: 06415 11/07/2018 ([id number]) OFFICE/OUTPATIENT VISIT EST Diagnosis: Essential (primary) hypertension[ICD10: I10] Diagnosis: 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] Diagnosis: Hypoglycemia, unspecified[ICD10: E16.2] Diagnosis: Other fatigue[ICD10: R53.83] Diagnosis: Urinary tract infection, site not specified[ICD10: N39.0] Vikki GUAMAN [employer] CPT-4: 82763 08/14/2018 ([id number]) OFFICE/OUTPATIENT VISIT EST Diagnosis: Essential (primary) hypertension[ICD10: I10] Diagnosis: Gastro-esophageal reflux disease without esophagitis[ICD10: K21.9] Diagnosis: Urinary tract infection, site not specified[ICD10: N39.0] Vikki GUAMAN DO [facility] CPT-4: 37032 05/10/2018 ([id number]) OFFICE/OUTPATIENT VISIT EST Diagnosis: Gastro-esophageal reflux disease without esophagitis[ICD10: K21.9] Diagnosis: Epigastric pain[ICD10: R10.13] Vikki GUAMAN DO [facility] CPT-4: 20051 02/14/2018 ([id number]) OFFICE/OUTPATIENT VISIT EST Diagnosis: 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] Diagnosis: Essential (primary) hypertension[ICD10: I10] Diagnosis: Generalized anxiety disorder[ICD10: F41.1] Diagnosis: Gastro-esophageal reflux disease without esophagitis[ICD10: K21.9] Vikki GUAMAN DO [facility] CPT-4: 43333 01/10/2018 OFFICE/OUTPATIENT VISIT EST Diagnosis: Gastro-esophageal reflux disease without esophagitis[ICD10: K21.9] Diagnosis: Palpitations[ICD10: R00.2] Diagnosis: Urinary tract infection, site not specified[ICD10: N39.0] Diagnosis: Generalized anxiety disorder[ICD10: F41.1] Vikki GUAMAN [employer] [facility] CPT-4: 76891 12/06/2017 ([id number]) NURSE/OUTPATIENT VISIT EST Diagnosis: 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] Diagnosis: Hypoglycemia, unspecified[ICD10: E16.2] Diagnosis: Dizziness and giddiness[ICD10: R42] Diagnosis: Occlusion and stenosis of bilateral carotid arteries[ICD10: I65.23] Vikki GUAMAN DO [facility] CPT-4: 58608 11/30/2017 OFFICE/OUTPATIENT VISIT EST Diagnosis: Epigastric pain[ICD10: R10.13] Diagnosis: Generalized anxiety disorder[ICD10: F41.1] Diagnosis: FLU VACCINE[ICD10: Z23] Vikki BALL [employer] [facility] CPT-4: 23371 11/22/2017 ([id number]) OFFICE/OUTPATIENT VISIT EST Diagnosis: Essential (primary) hypertension[ICD10: I10] Diagnosis: Hypoglycemia, unspecified[ICD10: E16.2] Diagnosis: Gastro-esophageal reflux disease without esophagitis[ICD10: K21.9] Vikki Ciscobhavya PIKE Alyssa GUAMAN DO [facility] CPT-4: 98223 10/20/2017 ([id number]) OFFICE/OUTPATIENT VISIT EST Diagnosis: Dizziness and giddiness[ICD10: R42] Jennifer GUAMAN DO [facility] CPT-4: 82708 09/27/2017 ([id number]) OFFICE/OUTPATIENT VISIT EST Diagnosis: Cervicalgia[ICD10: M54.2] Diagnosis: Other spondylosis with radiculopathy, cervical region[ICD10: M47.22] Vikki Ciscobhavya PIKE AlejandraSujata GLENIS CHIN [facility] CPT-4: 80124 08/16/2017 ([id number]) OFFICE/OUTPATIENT VISIT EST Diagnosis: Hypoglycemia, unspecified[ICD10: E16.2] Diagnosis: Other spondylosis with radiculopathy, cervical region[ICD10: M47.22] Diagnosis: Vertigo of central origin, 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] Diagnosis: 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] Vikki Ciscofunmilayosakshi CAIOAKUA ALEXNE AlejandraSujata GLENIS [facility] CPT-4: 26084 07/07/2017 ([id number]) OFFICE/OUTPATIENT VISIT EST Diagnosis: Benign paroxysmal vertigo, bilateral[ICD10: H81.13] Diagnosis: Otalgia, bilateral[ICD10: H92.03] Jennifer GUAMAN [employer] CPT-4: 09763 05/30/2017 ([id number]) OFFICE/OUTPATIENT VISIT EST Diagnosis: Low back pain[ICD10: M54.5] Diagnosis: Radiculopathy, lumbosacral region[ICD10: M54.17] Diagnosis: Left lower quadrant pain[ICD10: R10.32] Vikki Shah GLENIS [facility] CPT-4: 19737 04/18/2017 ([id number]) OFFICE/OUTPATIENT VISIT EST Diagnosis: FLU VACCINE[ICD10: Z23] Vikki PIKE AlejandraSujata [facility] CPT-4: 47107 12/10/2016 ([id number]) OFFICE/OUTPATIENT VISIT EST Diagnosis: Mixed hyperlipidemia[ICD10: E78.2] Diagnosis: Essential (primary) hypertension[ICD10: I10] Diagnosis: 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] Diagnosis: Impaired fasting glucose[ICD10: R73.01] Diagnosis: Other fatigue[ICD10: R53.83] [facility]: 82084 11/01/2016 ([id number]) OFFICE/OUTPATIENT VISIT EST Diagnosis: Pain in thoracic spine[ICD10: M54.6] Diagnosis: Other intervertebral disc degeneration, 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] [facility]: 41978 10/25/2016 ([id number]) OFFICE/OUTPATIENT VISIT EST Diagnosis: Left lower quadrant pain[ICD10: R10.32] Diagnosis: Low back pain[ICD10: M54.5] Vikki RUBI [facility] CPT-4: 29307 09/20/2016 ([id number]) OFFICE/OUTPATIENT VISIT EST Diagnosis: Mixed hyperlipidemia[ICD10: E78.2] Diagnosis: Essential (primary) hypertension[ICD10: I10] Diagnosis: Hypoglycemia, unspecified[ICD10: E16.2] [facility]: 71022 05/13/2016 ([id number]) OFFICE/OUTPATIENT VISIT EST Diagnosis: Impaired fasting glucose[ICD10: R73.01] Diagnosis: Mastodynia[ICD10: N64.4] Diagnosis: Mixed hyperlipidemia[ICD10: E78.2] Diagnosis: Essential (primary) hypertension[ICD10: I10] Diagnosis: Other fatigue[ICD10: R53.83] [facility] CPT[facility]: 32175 05/12/2016 ([id number]) OFFICE/OUTPATIENT VISIT EST Diagnosis: Acute upper respiratory infection, unspecified[ICD10: J06.9] Yue Moya VIKKI [facility] CPT-[facility]: 83203 03/18/2016 ([id number]) OFFICE/OUTPATIENT VISIT EST Diagnosis: Acute mastoiditis without complications, right ear[ICD10: H70.001] Vikki GUAMAN DO [facility] CPT-4: 31150 02/06/2016 ([id number]) OFFICE/OUTPATIENT VISIT EST Diagnosis: FLU VACCINE[ICD10: Z23] Vikki BALL DO [facility] CPT-4: 07175 12/12/2015 ([id number]) OFFICE/OUTPATIENT VISIT EST Diagnosis: Mixed hyperlipidemia[ICD10: E78.2] Diagnosis: Essential (primary) hypertension[ICD10: I10] Diagnosis: 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] Diagnosis: Impaired fasting glucose[ICD10: R73.01] Vikki GUAMAN DO [facility] CPT-4: 77927 11/25/2015 ([id number]) OFFICE/OUTPATIENT VISIT EST Diagnosis: Constipation, unspecified[ICD10: K59.00] Vikki GUAMAN DO [facility] CPT-4: 73565 08/26/2015 ([id number]) OFFICE/OUTPATIENT VISIT EST Diagnosis: Essential (primary) hypertension[ICD10: I10] Diagnosis: Mixed hyperlipidemia[ICD10: E78.2] Diagnosis: Chronic kidney disease, stage 1[ICD10: N18.1] Vikki GUAMAN DO [facility] CPT-4: 68851 05/21/2015 ([id number]) OFFICE/OUTPATIENT VISIT EST Diagnosis: Muscle weakness (generalized)[ICD10: M62.81] Diagnosis: Dizziness and giddiness[ICD10: R42] Diagnosis: Essential (primary) hypertension[ICD10: I10] Diagnosis: History of falling[ICD10: Z91.81] Vikki Ciscofunmilayosakshi ROMMELJEANNA GUAMAN DO [facility] CPT-4: 57298 02/19/2015 ([id number]) OFFICE/OUTPATIENT VISIT EST Diagnosis: FLU VACCINE[ICD10: Z23] Vikki CORTEZLINE Alyssa BALL DO [facility] CPT-4: 87399 12/20/2014 ([id number]) OFFICE/OUTPATIENT VISIT EST Diagnosis: Acute renal failure[ICD9: 584.9] Diagnosis: POLYURIA[ICD9: 788.42] Vikki CORTEZLINE Alyssa Rees [facility] CPT-4: 14390 11/19/2014 ([id number]) OFFICE/OUTPATIENT VISIT EST Diagnosis: HYPERLIPIDEMIA NEC/NOS[ICD9: 272.4] Diagnosis: HYPERTENSION[ICD9: 401.9] Diagnosis: CAD[ICD9: 414.00] Diagnosis: Hyperglycemia[ICD9: 790.29] Diagnosis: MALAISE AND FATIGUE[ICD9: 780.79] Vikki Peckfunmilayosakshi KEARNEYROMMEL Deidra GUAMAN [employer] CPT-4: 50824 11/14/2014 ([id number]) OFFICE/OUTPATIENT VISIT EST Diagnosis: MALAISE AND FATIGUE[ICD9: 780.79] Diagnosis: HYPOGLYCEMIA[ICD9: 251.2] Diagnosis: Grieving[ICD9: 309.0] Diagnosis: ABDOMINAL PAIN[ICD9: 789.00] Vikki Ciscofunmilayosakshi CORTEZVIKKI AlejandraSujata [facility] CPT-4: 48404 11/13/2014 OFFICE/OUTPATIENT VISIT EST Diagnosis: CERUMEN IMPACTION[ICD9: 380.4] Diagnosis: EUSTACHIAN TUBE DYSFUNCTION[ICD9: 381.81] Jesseniasa Francis VIKKI Alyssa [facility] CPT-4: 10625 09/27/2014 ([id number]) OFFICE/OUTPATIENT VISIT EST Diagnosis: Leg pain[ICD9: 729.5] Diagnosis: SUPERFIC PHLEBITIS-LEG[ICD9: 451.0] Vikki NIÑO AlejandraSujata [facility] [employer] CPT-4: 11526 07/11/2014 ([id number]) OFFICE/OUTPATIENT VISIT EST Diagnosis: Thoracic back pain[ICD9: 724.1] Diagnosis: SPASM OF MUSCLE[ICD9: 728.85] Vikki Ciscofunmilayosakshi CORTEZVIKKI AlejandraSujata [facility] CPT-4: 49534 05/23/2014 ([id number]) OFFICE/OUTPATIENT VISIT EST Diagnosis: DIZZINESS/VERTIGO[ICD9: 780.4] Diagnosis: Benign positional vertigo[ICD9: 386.11] Diagnosis: HYPERTENSION[ICD9: 401.9] Diagnosis: Suspicious nevus[ICD9: 238.2] Vikki [facility] CPT-4: 43910 03/20/2014 ([id number]) OFFICE/OUTPATIENT VISIT EST Diagnosis: FLU VACCINE[ICD10: Z23] Vikki [facility] CPT-4: 49363 12/21/2013 OFFICE/OUTPATIENT VISIT EST Diagnosis: SINUSITIS, ACUTE[ICD9: 461.9] Diagnosis: EUSTACHIAN TUBE DYSFUNCTION[ICD9: 381.81] Jessenia [facility] CPT-4: 37864 10/17/2013 ([id number]) OFFICE/OUTPATIENT VISIT EST Diagnosis: DIZZINESS/VERTIGO[ICD9: 780.4] Diagnosis: HYPERTENSION[ICD9: 401.9] [facility] 8[facility] 09/24/2013 ([id number]) OFFICE/OUTPATIENT VISIT EST Diagnosis: HYPERTENSION[ICD9: 401.9] Diagnosis: MALAISE AND FATIGUE[ICD9: 780.79] Diagnosis: SINUSITIS, ACUTE[ICD9: 461.9] Vikki [facility] CPT-4: 18890 05/31/2013 ([id number]) OFFICE/OUTPATIENT VISIT EST Diagnosis: HYPERLIPIDEMIA NEC/NOS[ICD9: 272.4] Diagnosis: HYPERTENSION[ICD9: 401.9] Diagnosis: B12 DEFIC ANEMIA NEC[ICD9: 281.1] Diagnosis: HYPOGLYCEMIA[ICD9: 251.2] Vikki [facility] CPT-4: 23293 03/28/2013 OFFICE/OUTPATIENT VISIT EST Diagnosis: COUGH[ICD9: 786.2] Jessenia [facility] CPT-4: 79529 03/26/2013 OFFICE/OUTPATIENT VISIT EST Diagnosis: COUGH[ICD9: 786.2] Diagnosis: URI, ACUTE[ICD9: 465.9] Jessenia [facility] CPT-4: 27151 12/19/2012 ([id number]) OFFICE/OUTPATIENT VISIT EST Diagnosis: HYPERTENSION[ICD9: 401.9] Diagnosis: CEPHALGIA[ICD9: 784.0] Diagnosis: ANXIETY STATE NOS[ICD9: 300.00] Diagnosis: FLU VACCINE[ICD9: V04.81] Vikki [facility] CPT-4: 74314 11/27/2012 ([id number]) OFFICE/OUTPATIENT VISIT EST Diagnosis: DIZZINESS/VERTIGO[ICD9: 780.4] Diagnosis: SINUSITIS, ACUTE[ICD9: 461.9] Diagnosis: Benign positional vertigo[ICD9: 386.11] Vikki KEELWARENCE AlejandraSujata [facility] CPT-[facility]: 15667 10/04/2012 OFFICE/OUTPATIENT VISIT EST Diagnosis: OTITIS MEDIA NOS[ICD9: 382.9] Vikki CORTEZLINE AlejandraSujata [facility] CPT-4: 41400 07/27/2012 OFFICE/OUTPATIENT VISIT EST Diagnosis: Perforation of ear drum[ICD9: 384.20] Diagnosis: SINUSITIS, ACUTE[ICD9: 461.9] Vikki CORTEZLINE AlejandraSujata [facility] CPT-[facility]: 10011 07/14/2012 ([id number]) OFFICE/OUTPATIENT VISIT EST Diagnosis: Mastalgia[ICD9: 611.71] Vikki RobertsSujata [facility] CPT-4: 19204 06/08/2012 ([id number]) OFFICE/OUTPATIENT VISIT EST Diagnosis: HYPERLIPIDEMIA NEC/NOS[ICD9: 272.4] Diagnosis: HYPERTENSION[ICD9: 401.9] Diagnosis: DIZZINESS/VERTIGO[ICD9: 780.4] Diagnosis: Hyperglycemia[ICD9: 790.29] Diagnosis: MALAISE AND FATIGUE[ICD9: 780.79] Vikki Ciscobhavya Conde AlejandraSujata [facility] CPT-4: 65220 02/23/2012 ([id number]) OFFICE/OUTPATIENT VISIT EST Diagnosis: EUSTACHIAN TUBE DYSFUNCTION[ICD9: 381.81] Diagnosis: DIZZINESS/VERTIGO[ICD9: 780.4] Diagnosis: ABDOMINAL PAIN[ICD9: 789.00] Diagnosis: GERD[ICD9: 530.81] Diagnosis: CERUMEN IMPACTION[ICD9: 380.4] Vikki [facility] CPT-4: 97997 02/22/2012 OFFICE/OUTPATIENT VISIT EST Diagnosis: ABDOMINAL PAIN[ICD9: 789.00] Diagnosis: DYSPEPSIA[ICD9: 536.8] Vikki [facility] CPT-4: 66669 12/28/2011 ([id number]) OFFICE/OUTPATIENT VISIT EST Diagnosis: ABDOMINAL PAIN[ICD9: 789.00] Diagnosis: DYSPEPSIA[ICD9: 536.8] Diagnosis: IBS[ICD9: 564.1] Vikki [facility] CPT - 4: 36468 12/15/2011 OFFICE/OUTPATIENT VISIT EST Diagnosis: DIZZINESS/VERTIGO[ICD9: 780.4] Diagnosis: HYPOGLYCEMIA[ICD9: 251.2] Vikki [facility] CPT-4: 76601 09/21/2011 ([id number]) OFFICE/OUTPATIENT VISIT EST Diagnosis: URINARY TRACT INFECTION[ICD9: 599.0] Vikki [facility] CPT-4: 59475 09/16/2011 ([id number]) OFFICE/OUTPATIENT VISIT EST Diagnosis: HYPERLIPIDEMIA NEC/NOS[ICD9: 272.4] Diagnosis: HYPERTENSION[ICD9: 401.9] Diagnosis: MALAISE AND FATIGUE[ICD9: 780.79] Diagnosis: DIZZINESS/VERTIGO[ICD9: 780.4] Vikki [facility] CPT-4: 03280 09/15/2011 ([id number]) OFFICE/OUTPATIENT VISIT EST Diagnosis: DIZZINESS/VERTIGO[ICD9: 780.4] Diagnosis: MALAISE AND FATIGUE[ICD9: 780.79] Diagnosis: HYPERTENSION[ICD9: 401.9] Vikki [facility] CPT-4: 48249 09/13/2011 OFFICE/OUTPATIENT VISIT EST Diagnosis: LUMB/LUMBOSAC DISC DEGEN[ICD9: 722.52] Diagnosis: Radiculopathy of leg[ICD9: 724.4] Diagnosis: 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] Diagnosis: SPINAL ENTHESOPATHY[ICD9: 720.1] Vikki [facility] CPT-4: 21855 08/16/2011 ([id number]) OFFICE/OUTPATIENT VISIT EST Diagnosis: PAIN, LOWER BACK[ICD9: 724.2] Diagnosis: SPASM OF MUSCLE[ICD9: 728.85] Diagnosis: SCIATICA[ICD9: 724.3] Diagnosis: Lumbar degenerative disc disease[ICD9: 722.52] Vikki [facility] CPT-4: 31202 08/03/2011 ([id number]) OFFICE/OUTPATIENT VISIT EST Diagnosis: PAIN IN THORACIC SPINE[ICD9: 724.1] Diagnosis: SPASM OF MUSCLE[ICD9: 728.85] Vikki [facility] CPT-4: 51420 07/26/2011 ([id number]) OFFICE/OUTPATIENT VISIT EST Diagnosis: PAIN, LOWER BACK[ICD9: 724.2] Diagnosis: SPASM OF MUSCLE[ICD9: 728.85] Diagnosis: Sacroiliac dysfunction[ICD9: 739.4] Diagnosis: Lumbar degenerative disc disease[ICD9: 722.52] Vikki [facility] CPT-4: 34917 06/28/2011 OFFICE/OUTPATIENT VISIT EST Diagnosis: MALAISE AND FATIGUE[ICD9: 780.79] Diagnosis: HYPOTENSION[ICD9: 458.9] Diagnosis: CAD[ICD9: 414.00] Vikki [facility] CPT-4: 23989 03/31/2011 OFFICE/OUTPATIENT VISIT EST Diagnosis: SINUSITIS, ACUTE[ICD9: 461.9] Diagnosis: PHARYNGITIS, ACUTE[ICD9: 462] Diagnosis: CERUMEN IMPACTION[ICD9: 380.4] Vikki [facility] CPT-4: 03390 02/11/2011 OFFICE/OUTPATIENT VISIT EST Diagnosis: PAIN IN THORACIC SPINE[ICD9: 724.1] Diagnosis: GERD[ICD9: 530.81] Diagnosis: DIZZINESS/VERTIGO[ICD9: 780.4] Vikki [facility] CPT-4: 28189 10/15/2010 OFFICE/OUTPATIENT VISIT EST Vikki [facility] CPT- 4: 14605 09/29/2010 ([id number]) OFFICE/OUTPATIENT VISIT EST Vikki PATHAK SSujata [facility] CPT-4: 71492 07/02/2010 ([id number]) OFFICE/OUTPATIENT VISIT, EST Diagnosis: PAIN, LOWER BACK[ICD9: 724.2] Vikki PIKE SSujata [facility] CPT-4: 08480 04/06/2010 ([id number]) OFFICE/OUTPATIENT VISIT, EST Vikki CRISOSTOMO S[facility] CPT-4: 90404 04/01/2010 ([id number]) OFFICE/OUTPATIENT VISIT, EST Vikki [facility] CPT-4: 81677 01/22/2010 ([id number]) OFFICE/OUTPATIENT VISIT, EST Vikki [facility] CPT-4: 81211 12/02/2009 ([id number]) OFFICE/OUTPATIENT VISIT, EST Vikki [facility] CPT-4: 29467 10/21/2009 ([id number]) OFFICE/OUTPATIENT VISIT, EST Vikki [facility] CPT-4: 93473 09/10/2009 ([id number]) OFFICE/OUTPATIENT VISIT, EST Vikki [facility] CPT-4: 75609 08/11/2009 ([id number]) OFFICE/OUTPATIENT VISIT, EST Vikki [facility] CPT-4: 79074 06/09/2009 Plan of Care Planned Activity Notes Codes Status Date Visit Diagnosis Plan: Palpitations Discussion: Check C BC, CMP, TSH ICD-9 : 785.1 ICD-10 : R00.2 03/13/2019 Visit Diagnosis Plan: Essential hypertension Discussio n: Increase metoprolol to 25mg q AM and 50mg po q pM Recheck 1 week ICD-9 : 401.9 ICD-10 : I10 03/13/2019 Patient Education: metoprolol tartrate- [employer] [facility] [id number] [email or web address]/resources/getResource/[email or web address] Completed 03/13/2019 Care Plan: X-RAY EXAM NECK SPINE 4/5VWS LOINC : 86691-7 Pending 03/13/2019 Care Plan: X-RAY EXAM THORAC SPINE4/>VW LOINC : 21534-5 Pending 03/13/2019 Appointment: Vikki Guaman WPtel: [address] [place] [address] LAB 01/23/2019 Appointment: Vikki Guaman WPtel: [address] [place] [address] INJECTION 12/26/2018 Patient Education: INFLUENZA VACCINE [facility] Completed 12/26/2018 Appointment: Vikki Guaman WPtel: [address] [place] [address] LAB 12/15/2018 Visit Diagnosis Plan: Acute serous [...] ICD-10 : H65.02 11/07/2018 Appointment: Jennifer Rosario [address] [place] [address] ACUTE ILLNESS 11/07/2018 Visit Diagnosis Plan: Urinary [...] : R53.83 08/14/2018 Appointment: Vikki Guaman WPtel: [address] [place], [place] [phone] [place] FOLLOW UP 08/14/2018 Visit Diagnosis Plan: [...] : K21.9 05/10/2018 Appointment: Vikki Guaman WPtel: [address] [place], [place] [phone] [place] FOLLOW UP 05/10/2018 Patient Education: metoprolol tartrate- [employer] [facility] [id number] https://[email or web address]/sampleDSTLD/resources/getResource/61/[email or web address] Completed 05/10/2018 Appointment: Vikki Guaman WPtel: [address] [place], [place] [phone] [place] CANCELED 04/21/2018 Visit Diagnosis Plan: Gastro-esophageal reflux disease without esophagitis Discussion: Continue protonix and carafate Proceed with updated EGD ICD-9 : 530.81 ICD-10 : K21.9 02/14/2018 Visit Diagnosis Plan: Epigastric pain Discussion: [facility] k CT abdomen/pelvis due to ongoing abdominal pain ICD-9 : 789.06 ICD-10 : R10.13 02/14/2018 Appointment: Vikki Guaman WPtel: [address] [place], [place] [phone] [place] FOLLOW UP 02/14/2018 Care Plan: CT PELVIS W/O DYE LOINC : 361 08-9 Pending 02/14/2018 Care Plan: CT ABDOMEN W/O DYE LOINC : 36 103-0 Pending 02/14/2018 Care Plan: Referral Order SNOMED-CT : 30 [id number] Pending 02/14/2018 Visit Diagnosis Plan: 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 Discussion: S/P [...] : 401.9 ICD-10 : I10 01/10/2018 Appointment: Vikik Guaman WPtel[facility] [phone] [facility] FO[facility] 01/10/2018 Visit Diagnosis Plan: Gastro-esophageal [...] : R00.2 12/06/2017 Appointment: Vikki Guaman WPtel: [address] [place], [place] [phone] FOLLOW UP 12/06/2017 Patient Education: Patient Medication Summary Completed 12/06/2017 Appointment: Vikki Guaman WPtel: [address] [place], [place] [phone] LAB 11/30/2017 Patient Education: Patient Medication Summary [...] : F41.1 11/22/2017 Appointment: Vikki Guaman WPtel: [address] [place] [address] FOLLOW UP 11/22/2017 Patient Education: Patient Medication [...] : K21.9 10/20/2017 Appointment: Vikki Guaman WPtel: [address] [place] [address] ACUTE ILLNESS 10/20/2017 Patient Education: Patient Medication Summary Completed 10/20/2017 Visit Diagnosis Plan: Dizziness and giddiness Discussi on: blood work to be completed in office including cmp, cbc, troponin to rule out glucose intolerance, infection, dehydration. instructed patient that she needs to see her it telecom technician sooner than oct and patient requested we contact dr. brown's office. will have front office make appt. patient has carotid doppler annually. ICD-9 : 780.4 ICD-10 : R42 09/27/2017 Appointment: Jennifer Rosario [address] ACUTE ILLNESS 09/27/2017 Patient Education: Patient Medication Summary Completed 09/27/2017 Visit Diagnosis Plan: Cervicalgia Discussion: Complete course of PT since symptoms improved Continue stretching exercises Notify if symptoms return or worsen ICD-9 : 723.1 ICD-10 : M54.2 08/16/2017 Appointment: Vikki Guaman WPtel: [address] [place] [address] FOLLOW UP 08/16/2017 Patient Education: Patient Medication [...] : H81.43 07/07/2017 Appointment: Vikki Guaman WPtel: [facility] 07/07/2017 Patient Education: Patient Medication Summary Completed 07/07/2017 Care Plan: MRI NECK SPINE W/O DYE LOINC : 96498-3 Pending 07/07/2017 Visit Diagnosis Plan: Otalgia, bilateral [...] ICD-10 : H81.13 05/30/2017 Appointment: Jennifer Rosario [address] [place] [address] ACUTE ILLNESS 05/30/2017 Patient Education: Patient Medication [...] : M54.17 04/18/2017 Appointment: Vikki Guaman WPtel: [address] [place] [address] ACUTE ILLNESS 04/18/2017 Patient Education: Patient Medication Summary Completed 04/18/2017 Appointment: Vikki Guaman WPtel: [address] [place] [address] US INJECTION 12/10/2016 Patient Education: Patient Medication Summary Completed 12/10/2016 Appointment: Vikki Guaman WPtel: [address] [place] [address] US LAB 11/01/2016 Patient Education: Patient Medication [...] : M51.36 10/25/2016 Appointment: Vikki Guaman WPtel: [address] [place], [place] [phone] [place] FOLLOW UP 10/25/2016 Patient Education: Patient [...] : R10.32 09/20/2016 Appointment: Vikki Guaman WPtel: [address] [place], [place] [phone] ACUTE ILLNESS 09/20/2016 Patient Education: Patient Medication Summary Completed 09/20/2016 Appointment: Vikki Guaman WPtel: [address] [place], [place] [phone] [place] LAB 05/13/2016 Patient Education: Patient Medication [...] : N64.4 05/12/2016 Appointment: Vikki Guaman WPtel: [address] [place], [place] [phone] [place] 3/ confirmed `sl ACUTE ILLNESS 05/12/2016 Patient Education: Patient Medication Summary Completed 05/12/2016 Care Plan: MAMMOGRAM SCREENING LOINC : 2 3247-5 Pending 05/12/2016 Visit Diagnosis Plan: Acute upper respiratory infectio n, unspecified Discussion: Exam is reassuring Likely viral illness Supportive care reviewed and encouraged Follow up PRN ICD-9 : 465.9 ICD-10 : J06.9 03/18/2016 Appointment: Yue Moya [address] [place] [address] ACUTE ILLNESS 03/18/2016 Patient Education: Patient Medication Summary Completed 03/18/2016 Visit Plan: Supportive care. Rest, Fluid s, Tylenol/Motrin prn fever or bodyaches. Notify if worsening symptoms. 02/06/2016 Appointment: Vikki Guaman WPtel: [address] [place] [address] ACUTE ILLNESS 02/06/2016 Patient Education: Patient Medication Summary Completed 02/06/2016 Appointment: Vikki Guaman WPtel: [address] [place] [address] INJECTION 12/12/2015 Patient Education: Patient Medication Summary Completed 12/12/2015 Appointment: Vikki Guaman WPtel: [address] [place] [address] LAB 11/25/2015 Patient Education: Patient Medication Summary Completed 11/25/2015 Visit Plan: Add miralax daily Use daily probiotic and metamucil and push fluids Notify if worsens/persists 08/26/2015 Appointment: Vikki uGaman WPtel: [address] [place] [address] 08/25/15 confirmed ~sl ACUTE ILLNESS 08/26/2015 Patient Education: Patient Medication Summary Completed 08/26/2015 Visit Plan: No NSAIDs Kidney function di scussed Discussed hydration Monitor lab every 4months so will check CMP, HbA1C next month 05/21/2015 Appointment: Vikki Guaman WPtel: [address] [place] [address] 05/19 confirmed ~sl ACUTE ILLNESS 05/21/2015 Patient Education: Patient Medication Summary Completed 05/21/2015 Visit Plan: Vestibular exercises Refill flonase Strict low Na diet--discussed that needs to read labels Rx for walker with chair given due to muscle weakness/unsteadiness Has carotids and abdominal aorta and legs checked in March Check Chem 7 02/19/2015 Appointment: Vikki Guaman WPtel: [address] [place] [address] 02/18/15 appt confirmed cn FOLLOW UP 02/19 Patient Education: Patient Medication Summary Completed 02/19/2015 Patient Education: Vertigo Completed 1 04/22/2014 Appointment: Vikki Guaman WPtel: [address] [place] [address] US INJECTION 12/20/2014 Patient Education: Patient Medication Summary Completed 12/20/2014 Appointment: Vikik Guaman WPtel: [address] [place] [address] UA 11/19/2014 Patient Education: Patient Medication Summary Completed 11/19/2014 Referral: Edy Cheek WPtel: #1 [facility] [address] Referral Completed 11/18/2014 Appointment: Vikki Guaman WPtel: [address] [place] [address] LAB 11/14/2014 Patient Education: Patient Medication Summary Completed 11/14/2014 Visit Plan: Check CMP, CBC, TSH, Free T4 , B12, Lipids, HbA1C Discussed 6 small meals a day each with protein Would likely benefit from antidepressant Update colonoscopy 11/13/2014 Appointment: Vikki Guaman WPtel: [address] [place], [place] [phone] 11/12/14 confirmed ACUTE ILLNESS 11/13/2014 Patient Education: Patient Medication Summary Completed 11/13/2014 Visit Plan: Cerumen flush with warm wate r and peroxide - good results Resume Nasonex nasal spray daily Recommended Debrox earwax removal drops 09/27/2014 Appointment: Jessenia Francis WPtel: [address] [place], [place] [phone] ACUTE ILLNESS 09/27/2014 Patient Education: Patient Medication Summary Completed 09/27/2014 Visit Plan: Continue aspirin daily Add m eloxicam for 1week Elevate and Ice Call on Tuesday07/11/2014 Appointment: Vikki Guaman WPtel: [address] [place] [address] ACUTE ILLNESS 07/11/2014 Patient Education: Patient Medication Summary Completed 07/11/2014 Visit Plan: Been using baclofen at [facility] and has helped some PT for next 2-4weeks 05/23/2014 Appointment: Vikki Guaman WPtel: [address] [place] [address] Follow Up 05/23/2014 Patient Education: Patient Medication Summary Completed 05/23/2014 Appointment: Vikki Guaman WPtel: [address] [place] [address] LAB 05/10/2014 Appointment: Vikki Guaman WPtel: [address] [place] [address] feeling better, weather - FOLLOW UP 04/07 Referral: Edy Cheek WPtel: 1 [facility] Referral Appointment Requested 04/03/2014 Visit Plan: Continue exercise and curren t meds See surgery for removal of right arm lesion 03/20/2014 Appointment: Vikki Guaman WPtel: [address] [place], [place] [phone] FOLLOW UP 03/20/2014 Patient Education: Patient Medication Summary Completed 03/20/2014 Appointment: Vikki Guaman WPtel: [address] [place], [place] [phone] [place] INJECTION 12/21/2013 Patient Education: Patient Medication Summary Completed 12/21/2013 Appointment: Jessenia Francis WPtel: [address] [place], [place] [phone] ACUTE ILLNESS 10/17/2013 Patient Education: Patient Medication Summary Completed 10/17/2013 Visit Plan: Discussed that likely lumbar etiology for leg weakness Will change amlodopine to low dose dyazide and see if helps legs and inner ear 09/24/2013 Appointment: Vikki Guaman WPtel: [address] [place] [address] FOLLOW UP 09/24/2013 Patient Education: Patient Medication Summary Completed 09/24/2013 Visit Plan: Ceftin and continue claritin /flonase Decrease amlodopine to 2.5mg q HS until fwup with Card due to weakness 05/31/2013 Appointment: Vikki Guaman WPtel: [address] [place] [address] ACUTE ILLNESS 05/31/2013 Patient Education: Patient Medication Summary Completed 05/31/2013 Appointment: Vikki Guaman WPtel: [address] [place] [address] LAB 03/28/2013 Patient Education: Patient Medication Summary Completed 03/28/2013 Appointment: Jessenia Francis WPtel: [address] [place] [address] ACUTE ILLNESS 03/26/2013 Patient Education: Patient Medication Summary Completed 03/26/2013 Visit Plan: Supportive care. Rest, Fluid s, Tylenol prn fever or bodyaches. Notify if worsening symptoms. Ceftin 12/19/2012 Appointment: Jessenia Francis WPtel: [address] [place] [address] ACUTE ILLNESS 12/19/2012 Patient Education: Patient Medication Summary Completed 12/19/2012 Appointment: Vikki Guaman WPtel: [address] [place] [address] BP CHECK 12/04/2012 Patient Education: Patient Medication Summary Completed 12/04/2012 Appointment: Vikki Guaman WPtel: [address] [place], [place] [phone] ER Follow UP 11/27/2012 Patient Education: Patient Medication Summary Completed 11/27/2012 Visit Plan: Restart flonase BID Use mecl izine 25mg q HS Vestibular exercises Claritin 10mg q AM See ENT if doesn't resolve 10/04/2012 Appointment: Vikki Guaman WPtel: [address] [place] [address] ACUTE ILLNESS 10/04/2012 Patient Education: Patient Medication Summary Completed 10/04/2012 Visit Plan: Will continue to observe 07/27/2012 Appointment: Vikki Guaman WPtel: [address] [place] [address] FOLLOW UP 07/27/2012 Patient Education: Patient Medication [...] ear recheck. 07/14/2012 Appointment: Evelyn Santos WPtel: [address] [place] [address] ACUTE ILLNESS 07/14/2012 Patient Education: Patient Medication Summary Completed 07/14/2012 Visit Plan: Decrease caffeine intake Kristin ck Bilateral Mammogram with US of left breast 06/08/2012 Appointment: Vikki Guaman WPtel: [address] [place], [place] [phone] ACUTE ILLNESS 06/08/2012 Patient Education: Patient Medication Summary Completed 06/08/2012 Appointment: Alisia Campbell WPtel: [address] [place], [place] [phone] appt scheduled 04/06 ACUTE ILLNESS 04/10/2012 Appointment: Vikki Guaman WPtel: [address] [place], [place] [phone] [place] LAB 02/23/2012 Patient Education: Patient Medication Summary Completed 02/23/2012 Visit Plan: Continue off carafate and se e how does Continue probiotic Add Vestibular exercises and use meclizine prn Continue Nasonex Check fasting lab including CMP, Lipids, CBC, TSH, Free T4, HbA1C 02/22/2012 Appointment: Vikki Guamantel: [address] [place], [place] [phone] FOLLOW UP 02/22/2012 Patient Education: Patient Medication Summary Completed 02/22/2012 Visit Plan: Continue carafate for 4more weeks at current dose then decrease to BID for 2wks then q HS 12/28/2011 Appointment: Vikki Guaman WPtel: [address] [place], [place] [phone] FOLLOW UP 12/28/2011 Patient Education: Patient Medication Summary Completed 12/28/2011 Visit Plan: Continue omeprazole Add Judi fate 1gm po q AC Add daily probiotic 12/15/2011 Appointment: Vikki Guaman WPtel: [address] [place] [address] ACUTE ILLNESS 12/15/2011 Patient Education: Patient Medication Summary Completed 12/15/2011 Appointment: Vikki Guamantel: [address] [place], [place] [phone] INJECTION 12/02/2011 Patient Education: Patient Medication Summary Completed 12/02/2011 Visit Plan: Diabetic Diet Accuchecks BID alternating times Hold onglyza and Januvia for now and continue diet and exercise and weight loss and moniter BS Discussed hypoglycemia and snack of peanut butter and crackers with juice or milk 09/21/2011 Appointment: Vikki Guamantel: [address] [place], [place] [phone] WORK IN 09/21/2011 Patient Education: Patient Medication Summary Completed 09/21/2011 Appointment: Vikki Guaman WPtel: [address] [place] [address] UA 09/16/2011 Patient Education: Patient Medication Summary Completed 09/16/2011 Appointment: Vikki Guamantel: [address] [place] [address] LAB 09/15/2011 Patient Education: Patient Medication Summary Completed 09/15/2011 Appointment: Vikki Guaman WPtel: [address] [place] [address] ACUTE ILLNESS 09/13/2011 Patient Education: Patient Medication Summary Completed 09/13/2011 Visit Plan: Injection to Right SI joint as above Pt will call in 3 days on pain Has PT starting in 2wks. 08/16/2011 Appointment: Vikki Guaman WPtel: [address] [place] [address] ACUTE ILLNESS 08/16/2011 Patient Education: Patient Medication Summary Completed 08/16/2011 Visit Plan: OMT done Start PT May need u pdated MRI if need to consider epidural Prednisone 08/03/2011 Appointment: Vikki Guaman WPtel: [address] [place] [address] OMT 08/03/2011 Patient Education: Patient Medication Summary Completed 08/03/2011 Visit Plan: Flexeril and Vimovo OMT done Daily stretches 07/26/2011 Appointment: Vikki Guaman WPtel: [address] [place] [address] ACUTE ILLNESS 07/26/2011 Patient Education: Patient Medication Summary Completed 07/26/2011 Visit Plan: OMT done Daily stretches Roque st heat or biofreeze Right SI joint injection Call in 1week Vimovo BID 06/28/2011 Appointment: Vikki Guaman WPtel: [address] [place] [address] ACUTE ILLNESS 06/28/2011 Patient Education: Patient Medication Summary Completed 06/28/2011 Appointment: Vikki Guaman WPtel: [address] [place], [place] [id number] US LAB 04/01/2011 Patient Education: Patient Medication Summary Completed 04/01/2011 Visit Plan: Decrease amlodopine to 1.25m g daily Schedule with Cardiology Fasting lab in AM 03/31/2011 Appointment: Vikki Guamantel: [address] [place], [place] [phone] ACUTE ILLNESS 03/31/2011 Patient Education: Patient Medication Summary Completed 03/31/2011 Visit Plan: Saline nasal flushes prn. Ty lenol/Motrin prn headache. Notify if persists/symptoms worsening. Cerumen removal from ears as above 02/11/2011 Appointment: Vikki Guaman WPtel: [address] [place], [place] [phone] ACUTE ILLNESS 02/11/2011 Patient Education: Patient Medication Summary Completed 02/11/2011 Appointment: Vikki Guaman WPtel: [address] [place], [place] [phone] US INJECTION 12/09/2010 Patient Education: Patient Medication Summary Completed 12/09/2010 Visit Plan: Continue vimovo for 1more we ek Increase Omeprazole to BID for 1mo then resume QD if stomach improved Vestibular exercises with meclizine q HS for next week 10/15/2010 Appointment: Vikki Guaman WPtel: [address] [place], [place] [phone] FOLLOW UP 10/15/2010 Patient Education: Patient Medication Summary Completed 10/15/2010 Appointment: Vikki Guaman WPtel: [address] [place], [place] [phone] ACUTE ILLNESS 09/29/2010 Patient Education: Patient Medication Summary Completed 09/29/2010 Appointment: Vikki Guaman WPtel: [address] [place], [place] [phone] US LAB 07/06/2010 Patient Education: Patient Medication Summary Completed 07/06/2010 Visit Plan: Saline nasal flushes prn. Ty lenol/Motrin prn headache. Notify if persists/symptoms worsening. Add Veramyst Increase Omeprazole to 20mg po BID 07/02/2010 Appointment: Vikki Guaman WPtel: [address] [place] [address] ACUTE ILLNESS 07/02/2010 Patient Education: Patient Medication Summary Completed 07/02/2010 Appointment: Vikki Guaman WPtel: [address] [place] [address] FOLLOW UP 04/06/2010 Patient Education: Patient Medication Summary Completed 04/06/2010 Appointment: Vikki Guaman WPtel: [address] [place] [address] ACUTE ILLNESS 04/01/2010 Patient Education: Patient Medication Summary Completed 04/01/2010 Visit Plan: Nasocourt sample given. Pt. will notify if symptoms are worse on Tuesday. 01/22/2010 Appointment: Alisia Campbell WPtel: [address] [place] [address] ACUTE ILLNESS 01/22/2010 Patient Education: Patient Medication Summary Completed 01/22/2010 Appointment: Vikki Guaman WPtel: [address] [place] [address] US INJECTION 12/10/2009 Patient Education: Patient Medication Summary Completed 12/10/2009 Appointment: Vikki Guaman WPtel: [address] [place] [address] FOLLOW UP 12/02/2009 Patient Education: Patient Medication Summary Completed 12/02/2009 Patient Education: Lexapro Completed 0 12/02/2009 Visit Plan: May proceed with hiatal ryan ia repair per Card. so will contact Dr. Mariscal's office to proceed with surgery Trial of Lexapro 5mg QD plus use xanax prn 10/21/2009 Appointment: Vikki Guaman WPtel: [address] [place], [place] [phone] FOLLOW UP 10/21/2009 Patient Education: Patient Medication Summary Completed 10/21/2009 Visit Plan: B12 given Cont oral B12 and iron Fwup 1mo for B12 Proceed with hiatal hernia repair once card clearance 09/10/2009 Appointment: Vikki Guaman WPtel: [address] [place], [place] [phone] FOLLOW UP 09/10/2009 Patient Education: Patient Medication Summary Completed 09/10/2009 Appointment: Vikki Guaman WPtel: [address] [place], [place] [phone] FOLLOW UP 08/11/2009 Patient Education: Patient Medication Summary Completed 08/11/2009 Appointment: Vikki Guaman WPtel: [address] [place], [place] [phone] US LAB 06/10/2009 Patient Education: Patient Medication Summary Completed 06/10/2009 Visit Plan: Check fasting lab in AM--CMP ,Lipids, CBC, Vit D, TSH,FreeT4, B12 06/09/2009 Appointment: Vikki Guaman WPtel: [address] [place], [place] [phone] FOLLOW UP 06/09/2009 Patient Education: Patient Medication Summary Completed 06/09/2009 Referral: Edy Cheek WPtel: #1 [facility] Referral Appointment Requested Referral: Edy Cheek WPtel: #[address] Referral Initiated Instructions Comment . Supportive [...]
--- OUTSIDE RECORDS SUMMARY | 2019-04-25 20:36 | XMS REPORT | CCD ---
Author Author Evelyne Guaman D.O. Organization [facility] Address [address] [place] [address] Phone Care Team Providers Care Music Executive Name Role Phone Vikki Guaman D.O., PP Unavailable CCM Unavailable Summary Purpose Interface Exchange Insurance Providers Payer name Policy type / Coverage type Covered green party ID Effective Begin Date Effective End Date WPS MEDICARE PART B [place] Medicare Part B [id number] 2017 Unknown Aetna [facility] [place] Medicare Part B [id number] Unknown Family history Father Diagnosis Age At Onset Heart disease Unknown Mother Diagnosis Age At Onset Heart disease Unknown Cancer Unknown Social History Social History Element Codes Description Effective Dates Tobacco history SNOMED CT: 544486362 Never smoker 09/29/2010 Marital status Unknown Single [...] R10.13 11/22/2017 Active 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: [...] Relief 50 mcg/actuation nasal spray,suspensi on RxNorm: 9445827 2 [place] Nasal every night at bedtime 03/13/2019 03/13/2019 Inactive simvastatin 40 mg tablet RxNorm: 754658 1 Tablet(s) PO QD 01/22/2019 04/21/2019 Active omeprazole 40 mg capsule,delayed release RxNorm: 447274 1 Capsu le(s) Oral QD 01/10/2019 07/08/2019 Active Xanax 0.25 mg tablet RxNorm: 349021 TAKE 1 TABLET BY MOUTH TWIC E DAILY 01/02/2019 No Stop Date Active omeprazole 40 mg capsule,delayed release RxNorm: 561977 1 Capsu le(s) PO QD 12/11/2018 01/09/2019 Inactive metoprolol tartrate 25 mg tablet RxNorm: 981626 1 Tablet(s) PO BID 11/20/2018 05/18/2019 Active omeprazole 40 mg capsule,delayed release RxNorm: 438083 1 Capsu le(s) PO QD 11/13/2018 12/10/2018 Inactive Flonase Allergy Relief 50 mcg/actuation nasal spray,suspensi on RxNorm: 7284252 2 [place] NASAL QHS 11/07/2018 03/12/2019 Inactive simvastatin 40 mg tablet RxNorm: 967874 1 Tablet(s) PO QD 10/23/2018 01/20/2019 Inactive simvastatin 40 mg tablet RxNorm: 130275 1 Tablet(s) PO QD 07/24/2018 10/21/2018 Inactive omeprazole 40 mg capsule,delayed release RxNorm: 380925 1 Capsu le(s) PO QD 07/13/2018 11/09/2018 Inactive simvastatin 40 mg tablet RxNorm: 942866 1 Tablet(s) PO QD 06/13/2018 07/12/2018 Inactive omeprazole 40 mg capsule,delayed release RxNorm: 885517 1 Capsu le(s) PO QD 06/13/2018 07/12/2018 Inactive Bactrim DS 800 mg-160 mg tablet RxNorm: 541908 1 Tablet(s) PO BID 0 05/12/2018 05/18/2018 Inactive Bactrim DS 800 mg-160 mg tablet RxNorm: 705537 1 Tablet(s) PO BID 0 05/12/2018 05/11/2018 Inactive Macrobid 100 mg capsule RxNorm: 632053 1 Capsule(s) PO BID 05/11/19 19 05/16/2018 Inactive metoprolol tartrate 25 mg tablet RxNorm: 609774 1 Tablet(s) PO BID 05/10/2018 11/05/2018 Inactive Xanax 0.25 mg tablet RxNorm: 007267 TAKE 1 TABLET BY MOUTH TWIC E DAILY 02/16/2018 01/01/2019 Inactive Xanax 0.25 mg tablet RxNorm: 233842 1 Tablet(s) PO BID 02/14/2018 Inactive Protonix 40 mg tablet,delayed release RxNorm: 532306 1 Tablet(s) PO BID for stomach--replaces omeprazole 01/10/2018 05/09/2018 Inactive Carafate 1 gram tablet RxNorm: 084612 1 Tablet(s) PO AC & HS 201705/09/2018 Inactive Xanax 0.25 mg tablet RxNorm: 290635 1 Tablet(s) PO BID 01/03/201812/2017 Inactive Bactrim DS 800 mg-160 mg tablet RxNorm: 723056 1 Tablet(s) PO BID 1 12/12/2017 Inactive Bactrim DS 800 mg-160 mg tablet RxNorm: 199162 1 Tablet(s) PO BID 1 12/07/2017 Inactive Carafate 1 gram tablet RxNorm: 566047 1 Tablet(s) PO AC & HS 201712/21/2017 Inactive Protonix 40 mg tablet,delayed release RxNorm: 364870 1 Tablet(s) PO BID for stomach--replaces omeprazole 11/22/2017 01/09/2018 Inactive Protonix 40 mg tablet,delayed release RxNorm: 573229 1 Tablet(s) PO BID for stomach--replaces omeprazole 10/20/2017 11/21/2017 Inactive fluticasone 50 mcg/actuation nasal spray,suspension RxNorm: 6983594 2 [place] NASAL QD to each nostril 07/07/2017 08/13/2018 Inactive Nasonex 50 mcg/actuation [place] RxNorm: 2435987 2 [place] NASAL 201707/07/2017 Inactive omeprazole 40 mg capsule,delayed release RxNorm: 307928 1 Capsu le(s) PO QD 04/18/2017 10/19/2017 Inactive simvastatin 40 mg tablet RxNorm: 356161 1 Tablet(s) PO QD TAKE 1 TABLET EVERY DAY 04/18/2017 04/12/2018 Inactive metoprolol tartrate 25 mg tablet RxNorm: 608413 1/2 Tablet(s) PO QD 04/18/2017 01/09/2018 Inactive simvastatin 40 mg tablet RxNorm: 733996 Tablet(s) TAKE 1 TABLET EVERY DAY 10/27/2016 04/17/2017 Inactive metoprolol tartrate 25 mg tablet RxNorm: 031447 1/2 Tablet(s) PO QD 09/20/2016 03/18/2017 Inactive Flonase 50 mcg/actuation nasal spray,suspension RxNorm: 1797 933 2 [place] NASAL BID 09/20/2016 04/17/2017 Inactive omeprazole 40 mg capsule,delayed release RxNorm: 302013 1 Capsu le(s) PO QD 09/08/2016 04/17/2017 Inactive metoprolol tartrate 25 mg tablet RxNorm: 427102 1/2 Tablet(s) PO QD 06/14/2016 09/19/2016 Inactive ciprofloxacin 0.2 % ear drops in a dropperette RxNorm: 67158 6 4 Drop(s) OTIC TID for 1 week 02/06/2016 05/11/2016 Inactive cefdinir 300 mg capsule RxNorm: 516604 2 Capsule(s) PO QD 02/06/2016 02/15/2016 Inactive omeprazole 40 mg capsule,delayed release RxNorm: 500123 TAKE 1 CAPSULE EVERY DAY 11/06/2015 09/08/2016 Inactive simvastatin 40 mg tablet RxNorm: 727365 TAKE 1 TABLET EVERY DAY 05/201510/27/2016 Inactive Flonase 50 mcg/actuation nasal spray,suspension RxNorm: 1797 933 2 [place] NASAL BID 02/19/2015 09/19/2016 Inactive cefuroxime axetil 250 mg tablet RxNorm: 087467 1 Tablet(s) PO BID 0 11/21/2014 11/20/2014 Inactive cefuroxime axetil 250 mg tablet RxNorm: 859881 1 Tablet(s) PO BID 0 11/21/2014 11/27/2014 Inactive omeprazole 40 mg capsule,delayed release RxNorm: 058754 1 Capsu le(s) PO QD 10/09/2014 01/05/2015 Inactive meloxicam 7.5 mg tablet RxNorm: 872470 1 Tablet(s) PO QD 07/11/2014 0 08/09/2014 Inactive loratadine 10 mg tablet RxNorm: 818832 1 Tablet(s) PO QAM for a llergies 10/17/2013 08/13/2018 Inactive Flonase 50 mcg/actuation nasal spray,suspension RxNorm: 8963 23 2 [place] NASAL BID 10/17/2013 02/18/2015 Inactive prednisone 20 mg tablet RxNorm: 853322 2 Tablet(s) PO BID 10/17/2013 10/21/2013 Inactive Dyazide 37.5 mg-25 mg capsule RxNorm: 117957 1 Capsule(s) PO QAM 10/16/2013 Inactive Ceftin 500 mg tablet RxNorm: 145162 1 Tablet(s) PO BID 05/31/201307/2013 Inactive Ceftin 500 mg tablet RxNorm: 078816 1 Tablet(s) PO BID 03/26/2013 Inactive simvastatin 40 mg tablet RxNorm: 027084 Tablet(s) PO TA KE ONE TABLET BY MOUTH EVERY DAY 03/26/2013 10/07/2015 Inactive metoprolol tartrate 25 mg tablet RxNorm: 113585 Tablet( s) PO TAKE ONE-HALF TABLET BY MOUTH EVERY DAY 03/26/2013 11/12/2014 Inactive Ceftin 500 mg tablet RxNorm: 294890 1 Tablet(s) PO BID 12/19/2012 Inactive loratadine 10 mg tablet RxNorm: 034398 1 Tablet(s) PO QAM for a llergies 10/04/2012 12/02/2012 Inactive omeprazole 20 mg capsule,delayed release RxNorm: 051796 Capsule(s) PO TAKE ONE CAPSULE BY MOUTH TWICE DAILY 08/09/2012 10/08/2014 Inactive omeprazole 20 mg capsule,delayed release RxNorm: 205307 1 Capsu le(s) PO BID 08/09/2012 05/09/2018 Inactive Augmentin 875 mg-125 mg tablet RxNorm: 895446 1 Tablet(s) PO Q12H 0 07/14/2012 07/23/2012 Inactive Floxin Otic Drops 1 bottle Drops RxNorm: 5 Drop(s) OTIC BID 07/20/2012 Inactive metoprolol tartrate 25 mg tablet RxNorm: 155728 Tablet( s) PO TAKE ONE-HALF TABLET BY MOUTH EVERY DAY 04/11/2012 03/25/2013 Inactive simvastatin 40 mg tablet RxNorm: 105282 Tablet(s) PO TA KE ONE TABLET BY MOUTH EVERY DAY 04/11/2012 03/25/2013 Inactive lancets RxNorm: Misc Miscellaneous USE ONE TO CH JEFFERY GLUCOSE EVERY DAY 04/04/2012 05/09/2018 Inactive Carafate 1 gram tablet RxNorm: 699149 1 Tablet(s) PO AC & HS 201111/12/2014 Inactive Flagyl 500 mg tablet RxNorm: 816549 1 Tablet(s) PO TID 12/15/2011 Inactive Carafate 1 gram tablet RxNorm: 116202 1 Tablet(s) PO AC & HS 201102/12/2012 Inactive One Touch Test strips RxNorm: Miscellaneous QD 09/21/2011 05/09/2018 Inactive one touch ultra mini test strips Protonix 40 mg Tab RxNorm: 626667 1 Tablet(s) PO QD 09/13/20112011 Inactive Protonix 40 mg Tab RxNorm: 697780 1 Tablet(s) PO QD 09/13/20112011 Inactive prednisone 20 mg Tab RxNorm: 551413 1 Tablet(s) PO BID 08/03/201106/2011 Inactive Flexeril 5 mg Tab RxNorm: 288972 1 Tablet(s) PO QHS for spasm 07/2508/24/2011 Inactive Flexeril 5 mg Tab RxNorm: 987639 1 Tablet(s) PO QHS for spasm 06/2707/25/2011 Inactive amlodipine 2.5 mg Tab RxNorm: 014032 1/2 Tablet(s) PO QD replac es 5mg dose 03/31/2011 06/27/2011 Inactive simvastatin 40 mg tablet RxNorm: 366826 1 Tablet(s) PO QD 03/31/2011 03/24/2012 Inactive metoprolol tartrate 25 mg tablet RxNorm: 482614 1/2 Tablet(s) PO QD 03/31/2011 03/24/2012 Inactive omeprazole 20 mg capsule,delayed release RxNorm: 336511 1 Capsu le(s) PO BID 03/31/2011 09/12/2011 Inactive cefdinir 300 mg Cap RxNorm: 873765 2 Capsule(s) PO QD 02/11/201102/04 Inactive simvastatin 40 mg Tab RxNorm: 211530 1 Tablet(s) PO QD 02/01/2011 Inactive metoprolol tartrate 25 mg Tab RxNorm: 620446 1/2 Tablet(s) PO QD 03/30/2011 Inactive metoprolol tartrate 25 mg Tab RxNorm: 849531 1/2 Tablet(s) PO QD 12/28/2010 Inactive meclizine 25 mg Tab RxNorm: 4773996 1 Tablet(s) PO QHS 10/15/201011/2010 Inactive for dizziness Ceftin 500 mg Tab RxNorm: 794478 1 Tablet(s) PO BID 07/02/20102010 Inactive omeprazole 20 mg Cap, Delayed Release RxNorm: 651918 1 Capsule( s) PO BID 07/02/2010 12/28/2010 Inactive simvastatin 40 mg Tab RxNorm: 113496 1 Tablet(s) PO QD 06/30/201007/2018 Inactive simvastatin 40 mg Tab RxNorm: 181296 1 Tablet(s) PO QD 06/30/2010 Inactive simvastatin 40 mg Tab RxNorm: 412051 1 Tablet(s) PO QD 02/25/2010 Inactive Tessalon Perles 100 mg Cap RxNorm: 861815 1 Capsule(s) PO Q6-8H 01/28/2010 Inactive cefdinir 300 mg Cap RxNorm: 198955 1 Capsule(s) PO BID 01/22/2010 Inactive Lexapro 10 mg Tab RxNorm: 005856 1 Tablet(s) PO QD 12/02/2009 010 Inactive Cipro 250 mg Tab RxNorm: 342648 1 Tablet(s) PO BID 12/02/2009 010 Inactive Wellbutrin XL 150 mg 24 hr Tab RxNorm: 834135 1 Tablet(s) PO QAM 08/07/2009 Inactive Fish Oil 1,000 mg Cap RxNorm: 1 Capsule(s) PO QD No Start Date Active Tylenol Extra Strength 500 mg tablet RxNorm: 516845 1/2 Tablet( s) PO as needed No Start Date Active nitroglycerin 0.4 mg sublingual tablet RxNorm: 993734 Tablet(s) SL as needed No Start Date Active Calcium with Vitamin D 600 mg (1,500 mg)-400 unit tablet RxN orm: 927986 1 Tablet(s) PO QD No Start Date Active Multivitamin & Mineral Formula Tab RxNorm: 1 Tablet(s) PO QD No St art Date Active vitamin B complex capsule RxNorm: 1 Capsule(s) PO QD No Start Date Active Aspirin 81 mg Tab RxNorm: 517206 1 Tablet(s) PO QD No Start Date Active isosorbide mononitrate ER 30 mg tablet,extended release 24 h r RxNorm: 927561 1 Tablet(s) PO QHS No Start Date Active Vitamin D 1,000 unit Cap RxNorm: 476299 1 Capsule(s) PO QD No Start D ate Active Co Q-10 oral RxNorm: 59845 oral No Start Date Active metoprolol tartrate 25 mg Tab RxNorm: 828186 1/2 Tablet(s) PO QD No Start Date 12/27/2010 Inactive Nasonex 50 mcg/actuation [place] RxNorm: 9691934 2 [place] NASAL No Sta rt Date 07/06/2017 Inactive Vitamin B12 1000mcg Tablet RxNorm: 1 Tablet(s) PO QD No Start Date 11/12/2014 Inactive amlodipine 5 mg Tab RxNorm: 109851 1 Tablet(s) PO QD No Start Date Inactive simvastatin 40 mg tablet RxNorm: 324939 1 Tablet(s) PO QD No Start Date 06/12/2018 Inactive omeprazole 20 mg capsule,delayed release RxNorm: 259574 1 Capsu le(s) PO BID No Start Date 08/08/2012 Inactive omeprazole 40 mg capsule,delayed release RxNorm: 010944 1 Capsu le(s) PO QD No Start Date 06/12/2018 Inactive Nexium 40 mg Cap RxNorm: 304993 1 Capsule(s) PO QD No Start Date 01/05 Inactive Stool Softener 100 mg Tab RxNorm: 1756076 2 Tablet(s) PO BID No Sta rt Date 03/30/2011 Inactive Calcium with Vitamin D 600 mg (1,500 mg)-400 unit Tab RxNorm : 576339 1 Tablet(s) PO QD No Start Date 11/12/2014 Inactive iron 325 mg (65 mg iron) Tab RxNorm: 598574 1 Tablet(s) PO QD No St art Date 11/12/2014 Inactive Flonase 50 mcg/actuation Nasal [place] RxNorm: 824050 2 [place] DEMOND AL BID No Start Date 10/16/2013 Inactive fluticasone 50 mcg/actuation nasal spray,suspension RxNorm: 3832297 2 [place] NASAL QD to each nostril No Start Date 07/06/2017 Inactive Nasonex 50 mcg/actuation [place] RxNorm: 2507698 2 [place] NASAL QD No Start Date 07/06/2017 Inactive hydralazine 50 mg tablet RxNorm: 718624 1 Tablet(s) PO as needed for BP over 160/90 No Start Date 11/21/2017 Inactive Vimovo 500 mg-20 mg 12 hr Tab RxNorm: 440185 1 Tablet(s) PO BID No Start Date 02/10/2011 Inactive Tylenol PM 25 mg-500 mg/15 mL Oral Soln RxNorm: 5642418 1 PO QPM No Start Date 11/12/2014 Inactive Iron (Ferrous Sulfate) Oral RxNorm: Oral No Start Date 03/30/19 12 Inactive Reglan 10 mg Tab RxNorm: 391769 1 Tablet(s) PO TID before meals No Start Date 02/10/2011 Inactive Xanax 1 mg Tab RxNorm: 900283 1/2 Tablet(s) PO QD No Start Date 11/21 Inactive amlodipine 10 mg tablet RxNorm: 604329 1 Tablet(s) PO QD No Start D ate 09/23/2013 Inactive Iron (dried) Oral RxNorm: Oral No Start Date 03/30/2011 Inactiv e metoprolol tartrate 50 mg tablet RxNorm: 753177 1 Tablet(s) PO BID No Start Date 02/13/2018 Inactive Xanax 0.25 mg tablet RxNorm: 352671 1 Tablet(s) PO BID No Start Date 01/02/2018 Inactive lancets RxNorm: Miscellaneous check blood sugar at least once daily No Start Date 04/03/2012 Inactive simvastatin 40 mg Tab RxNorm: 833184 1 Tablet(s) PO QD No Start Date 02/24/2010 Inactive isosorbide mononitrate ER 30 mg tablet,extended release 24 h r RxNorm: 293555 1 Tablet(s) PO QHS No Start Date 08/13/2018 Inactive amlodipine 2.5 mg tablet RxNorm: 221237 1 Tablet(s) PO QD No Start Date 09/23/2013 Inactive sucralfate 1 gram tablet RxNorm: 220987 1 Tablet(s) PO QID No Start Date 05/09/2018 Inactive Fish Oil Oral RxNorm: Oral No Start Date 03/31/2011 Inactive Multiple Vitamin Oral RxNorm: Oral No Start Date 03/31/2011 Franny ctive metoprolol tartrate 25 mg tablet RxNorm: 894695 1/2 Tablet(s) P O QD No Start Date 06/13/2016 Inactive metoprolol tartrate 50 mg tablet RxNorm: 316266 1/2 Tablet(s) P O BID No Start Date 05/09/2018 Inactive Flonase Allergy Relief 50 mcg/actuation nasal spray,suspensi on RxNorm: 7107420 2 [place] NASAL QHS No Start Date 11/06/2018 Inactive [...] Result Date S ervice Location GFR CALC 9985483 GFR Non Afr Amr 52 mL/min 12/15/2018 Unk nown GFR CALC [id number] GFR Afr Amr >60 mL/min 12/15/2018 Unknow n COMPREHENSIVE METABOLIC 14302 AST 17 U/L 2018 Unknown COMPREHENSIVE METABOLIC 84911 ALT 11 U/L 2018 Unknown COMPREHENSIVE METABOLIC 06182 BUN 17 mg/dL 2018 Unknown COMPREHENSIVE METABOLIC 11911 ALBUMIN 3.9 g/dL 2018 Unknown COMPREHENSIVE METABOLIC 50903 CHLORIDE 108 mmol/L 12/15 Unknown COMPREHENSIVE METABOLIC 92848 Bili Total 0.5 mg/dL 12/15 Unknown COMPREHENSIVE METABOLIC 95836 ALK PHOS 72 U/L 2018 Unknown COMPREHENSIVE METABOLIC 44156 SODIUM 142 mmol/L 12/15 Unknown COMPREHENSIVE METABOLIC 05226 CREATININE 1.02 mg/dL 12/05 Unknown COMPREHENSIVE METABOLIC 24374 CALCIUM 9.3 mg/dL 2018 Unknown COMPREHENSIVE METABOLIC 77739 POTASSIUM 4.0 mmol/L 12/15 Unknown COMPREHENSIVE METABOLIC 61987 Total Protein 6.2 g/dL Unknown COMPREHENSIVE METABOLIC 19675 Glucose 93 mg/dL 2018 Unknown COMPREHENSIVE METABOLIC 39979 Bicarbonate 27 mmol/L 12/05 Unknown COMPREHENSIVE METABOLIC 51212 AGAP 7 mmol/L 2018 Unknown GFR CALC [id number] GFR Non Afr Amr 48 mL/min 08/14/2018 Unk nown GFR CALC [id number] GFR Afr Amr 59 mL/min 08/14/2018 Unknown THYROID STIMULATING HORMONE 78315 TSH 1.936 uIU/mL 08/14/2018 Unknown COMPREHENSIVE METABOLIC 49476 AST 18 U/L 2018 Unknown COMPREHENSIVE METABOLIC 77188 ALT 11 U/L 2018 Unknown COMPREHENSIVE METABOLIC 50768 BUN 18 mg/dL 2018 Unknown COMPREHENSIVE METABOLIC 91514 ALBUMIN 4.2 g/dL 2018 Unknown COMPREHENSIVE METABOLIC 87471 CHLORIDE 109 mmol/L 08/14 Unknown COMPREHENSIVE METABOLIC 28487 Bili Total 0.4 mg/dL 08/14 Unknown COMPREHENSIVE METABOLIC 99207 ALK PHOS 64 U/L 2018 Unknown COMPREHENSIVE METABOLIC 72932 SODIUM 142 mmol/L 08/14 Unknown COMPREHENSIVE METABOLIC 70500 CREATININE 1.09 mg/dL 08/05 Unknown COMPREHENSIVE METABOLIC 80109 CALCIUM 9.3 mg/dL 2018 Unknown COMPREHENSIVE METABOLIC 24173 POTASSIUM 4.7 mmol/L 08/14 Unknown COMPREHENSIVE METABOLIC 23268 Total Protein 6.3 g/dL Unknown COMPREHENSIVE METABOLIC 57494 Glucose 84 mg/dL 2018 Unknown COMPREHENSIVE METABOLIC 91011 Bicarbonate 25 mmol/L 08/05 Unknown COMPREHENSIVE METABOLIC 33901 AGAP 8 mmol/L 2018 Unknown COMPLETE BLOOD COUNT [id number] WBC 7.8 10e9/L 08/15/19 19 Unknown COMPLETE BLOOD COUNT [id number] RBC 4.04 10e12/L 2018 Unknown COMPLETE BLOOD COUNT [id number] HEMOGLOBIN 12.2 g/dL 08/15/19 19 Unknown COMPLETE BLOOD COUNT [id number] HEMATOCRIT 38.6 % 08/15/19 19 Unknown COMPLETE BLOOD COUNT [id number] MCV 95.5 fL 9 Unknown COMPLETE BLOOD COUNT [id number] MCH 30.2 pg 9 Unknown COMPLETE BLOOD COUNT [id number] MCHC 31.6 g/dL 9 Unknown COMPLETE BLOOD COUNT [id number] PLATELET COUNT 215 10e9/L 12/2018 Unknown COMPLETE BLOOD COUNT [id number] Mean Plt Volume 11.2 fL 12/2018 Unknown COMPLETE BLOOD COUNT [id number] Neut Auto 45.7 % 9 Unknown COMPLETE BLOOD COUNT [id number] Lymph Auto 42.1 % 08/15/19 19 Unknown COMPLETE BLOOD COUNT [id number] [place] Auto 9.2 % 9 Unknown COMPLETE BLOOD COUNT [id number] RDW 13.4 % 9 Unknown COMPLETE BLOOD COUNT [id number] Eos Auto 2.7 % 9 Unknown COMPLETE BLOOD COUNT [id number] Baso Auto 0.3 % 9 Unknown COMPLETE BLOOD COUNT [id number] Neutrophil Abs 3.56 10e9/L Unknown COMPLETE BLOOD COUNT [id number] Lymphocyte Abs 3.28 10e9/L Unknown COMPLETE BLOOD COUNT [id number] Monocyte Abs 0.72 10e9/L 08/05 Unknown COMPLETE BLOOD COUNT [id number] Eosinophil Abs 0.21 10e9/L Unknown COMPLETE BLOOD COUNT [id number] RDW-SD 44.9 fL 9 Unknown COMPLETE BLOOD COUNT [id number] Basophil Abs 0.02 10e9/L 08/05 Unknown COMPLETE BLOOD COUNT [id number] WBC 5.2 10e9/L 12/01/19 18 Unknown COMPLETE BLOOD COUNT [id number] RBC 4.21 10e12/L 2017 Unknown COMPLETE BLOOD COUNT [id number] HEMOGLOBIN 12.8 g/dL 12/01/19 18 Unknown COMPLETE BLOOD COUNT [id number] HEMATOCRIT 39.0 % 12/01/19 18 Unknown COMPLETE BLOOD COUNT [id number] MCV 92.6 fL 8 Unknown COMPLETE BLOOD COUNT [id number] MCH 30.4 pg 8 Unknown COMPLETE BLOOD COUNT [id number] MCHC 32.8 g/dL 8 Unknown COMPLETE BLOOD COUNT [id number] PLATELET COUNT 202 10e9/L Unknown COMPLETE BLOOD COUNT [id number] Mean Plt Volume 10.7 fL Unknown COMPLETE BLOOD COUNT [id number] Neut Auto 40.9 % 8 Unknown COMPLETE BLOOD COUNT [id number] Lymph Auto 46.3 % 12/01/19 18 Unknown COMPLETE BLOOD COUNT [id number] [place] Auto 9.3 % 8 Unknown COMPLETE BLOOD COUNT [id number] RDW 13.7 % 8 Unknown COMPLETE BLOOD COUNT [id number] Eos Auto 2.9 % 8 Unknown COMPLETE BLOOD COUNT [id number] Baso Auto 0.6 % 8 Unknown COMPLETE BLOOD COUNT [id number] Neutrophil Abs 2.13 10e9/L Unknown COMPLETE BLOOD COUNT [id number] Lymphocyte Abs 2.41 10e9/L Unknown COMPLETE BLOOD COUNT [id number] Monocyte Abs 0.48 10e9/L 11/06 Unknown COMPLETE BLOOD COUNT [id number] Eosinophil Abs 0.15 10e9/L Unknown COMPLETE BLOOD COUNT [id number] RDW-SD 45.2 fL 8 Unknown COMPLETE BLOOD COUNT [id number] Basophil Abs 0.03 10e9/L 11/06 [place] [address] Glucose 118 mg/dL 11/30 [place] [address] CREATININE 1.01 mg/dL [place] [address] BUN 14 mg/dL 11/30 [place] [address] SODIUM 141 mmol/L 11/06 [place] [address] POTASSIUM 4.0 mmol/L 11/06 [place] [address] CHLORIDE 108 mmol/L 11/06 [place] [address] Bicarbonate 25 mmol/L [place] [address] AGAP 8 mmol/L 11/30 [place] [address] CALCIUM 9.6 mg/dL 11/30 Unknown FREE T4 54712 T4 Free 1.23 ng/dL 11/30/2017 Unknown GFR CALC 7080152 GFR Non Afr Amr 53 mL/min 11/30/2017 Unk nown GFR CALC 7963586 GFR Afr Amr >60 mL/min 11/30/2017 Unknow n THYROID STIMULATING HORMONE 18026 TSH 2.124 uIU/mL 11/30/2017 Unknown LIPID GROUP 16648 Cholesterol 152 mg/dL 09/28/2017 Unkno wn LIPID GROUP 11287 Triglyceride 151 mg/dL 09/28/2017 Unkn own LIPID GROUP 45041 HDL CHOLESTEROL 47 mg/dL 09/28/2017 U nknown LIPID GROUP 88940 Chol/HDL Ratio 3.23 ratio 09/28/2017 U nknown LIPID GROUP 98795 NON-HDL Chol 105 mg/dL 09/28/2017 Unkn own LIPID GROUP 36197 LDL Cholesterol 75 mg/dL 09/28/2017 U nknown ASSAY OF TROPONIN QUANT 59327 Troponin-I <0.30 ng/mL Unknown COMPREHENSIVE METABOLIC 49850 AST 20 U/L 2017 Unknown COMPREHENSIVE METABOLIC 04132 ALT 14 U/L 2017 Unknown COMPREHENSIVE METABOLIC 00901 BUN 19 mg/dL 2017 Unknown COMPREHENSIVE METABOLIC 82187 ALBUMIN 4.2 g/dL 2017 Unknown COMPREHENSIVE METABOLIC 03525 CHLORIDE 102 mmol/L 09/27 Unknown COMPREHENSIVE METABOLIC 80500 Bili Total 0.4 mg/dL 09/27 Unknown COMPREHENSIVE METABOLIC 61608 ALK PHOS 66 U/L 2017 Unknown COMPREHENSIVE METABOLIC 26893 SODIUM 135 mmol/L 09/27 Unknown COMPREHENSIVE METABOLIC 66501 CREATININE 1.01 mg/dL 09/05 Unknown COMPREHENSIVE METABOLIC 88738 CALCIUM 9.3 mg/dL 2017 Unknown COMPREHENSIVE METABOLIC 56135 POTASSIUM 4.8 mmol/L 09/27 Unknown COMPREHENSIVE METABOLIC 17078 Total Protein 7.0 g/dL Unknown COMPREHENSIVE METABOLIC 68531 Glucose 91 mg/dL 2017 Unknown COMPREHENSIVE METABOLIC 96385 Bicarbonate 23 mmol/L 09/05 Unknown COMPREHENSIVE METABOLIC 24777 AGAP 10 mmol/L 2017 Unknown COMPLETE BLOOD COUNT [id number] WBC 7.5 10e9/L 09/28/19 18 Unknown COMPLETE BLOOD COUNT [id number] RBC 4.13 10e12/L 2017 Unknown COMPLETE BLOOD COUNT [id number] HEMOGLOBIN 12.6 g/dL 09/28/19 18 Unknown COMPLETE BLOOD COUNT [id number] HEMATOCRIT 38.4 % 09/28/19 18 Unknown COMPLETE BLOOD COUNT [id number] MCV 93.0 fL 8 Unknown COMPLETE BLOOD COUNT 6745903 MCH 30.5 pg 8 Unknown COMPLETE BLOOD COUNT [id number] MCHC 32.8 g/dL 8 Unknown COMPLETE BLOOD COUNT [id number] PLATELET COUNT 204 10e9/L Unknown COMPLETE BLOOD COUNT [id number] Mean Plt Volume 10.9 fL Unknown COMPLETE BLOOD COUNT 5685318 Neut Auto 43.1 % 8 Unknown COMPLETE BLOOD COUNT 3708687 Lymph Auto 45.0 % 09/28/19 18 Unknown COMPLETE BLOOD COUNT 7271842 [place] Auto 9.2 % 8 Unknown COMPLETE BLOOD COUNT 6719107 RDW 13.4 % 8 Unknown COMPLETE BLOOD COUNT 2393142 Eos Auto 2.3 % 8 Unknown COMPLETE BLOOD COUNT [id number] Baso Auto 0.4 % 8 Unknown COMPLETE BLOOD COUNT [id number] Neutrophil Abs 3.23 10e9/L Unknown COMPLETE BLOOD COUNT [id number] Lymphocyte Abs 3.38 10e9/L Unknown COMPLETE BLOOD COUNT [id number] Monocyte Abs 0.69 10e9/L 09/05 Unknown COMPLETE BLOOD COUNT [id number] Eosinophil Abs 0.17 10e9/L Unknown COMPLETE BLOOD COUNT [id number] RDW-SD 44.4 fL 8 Unknown COMPLETE BLOOD COUNT [id number] Basophil Abs 0.03 10e9/L 09/05 Unknown GFR CALC 3929818 GFR Non Afr Amr 53 mL/min 09/27/2017 Unk nown GFR CALC 5052444 GFR Afr Amr >60 mL/min 09/27/2017 Unknow n GLYCOSYLATED HEMOGLOBIN TEST 60102 Hgb A1c 63541-7 5.4 % 0 09/27/2017 Unknown MEAN GLUC 6136011 Calc Mean Gluc 108 mg/dL 09/27/2017 Unkn own MEAN GLUC [id number] Calc Mean Gluc 114 mg/dL 11/01/2016 Unkn own LIPID GROUP 78030 Cholesterol 146 mg/dL 11/01/2016 Unkno wn LIPID GROUP 85750 Triglyceride 119 mg/dL 11/01/2016 Unkn own LIPID GROUP 44288 HDL CHOLESTEROL 47 mg/dL 11/01/2016 U nknown LIPID GROUP 48728 Chol/HDL Ratio 3.11 ratio 11/01/2016 U nknown LIPID GROUP 77206 NON-HDL Chol 99 mg/dL 11/01/2016 Unkn own LIPID GROUP 59261 LDL Cholesterol 75 mg/dL 11/01/2016 U nknown GLYCOSYLATED HEMOGLOBIN TEST 70145 Hgb A1c 24603-5 5.6 % 0 11/01/2016 Unknown COMPREHENSIVE METABOLIC 27320 AST 22 U/L 2016 Unknown COMPREHENSIVE METABOLIC 86374 ALT 12 U/L 2016 Unknown COMPREHENSIVE METABOLIC 28019 BUN 17 mg/dL 2016 Unknown COMPREHENSIVE METABOLIC 51001 ALBUMIN 4.0 g/dL 2016 Unknown COMPREHENSIVE METABOLIC 82930 CHLORIDE 110 mmol/L 11/01 Unknown COMPREHENSIVE METABOLIC 32150 Bili Total 0.4 mg/dL 11/01 Unknown COMPREHENSIVE METABOLIC 70963 ALK PHOS 63 U/L 2016 Unknown COMPREHENSIVE METABOLIC 57395 SODIUM 140 mmol/L 11/01 Unknown COMPREHENSIVE METABOLIC 00183 CREATININE 1.05 mg/dL 10/06 Unknown COMPREHENSIVE METABOLIC 47466 CALCIUM 9.2 mg/dL 2016 Unknown COMPREHENSIVE METABOLIC 60061 POTASSIUM 4.2 mmol/L 11/01 Unknown COMPREHENSIVE METABOLIC 25987 Total Protein 6.2 g/dL Unknown COMPREHENSIVE METABOLIC 49469 Glucose 87 mg/dL 2016 Unknown COMPREHENSIVE METABOLIC 53812 Bicarbonate 24 mmol/L 10/06 Unknown COMPREHENSIVE METABOLIC 31629 AGAP 6 mmol/L 2016 Unknown GFR CALC [id number] GFR Non Afr Amr 51 mL/min 11/01/2016 Unk nown GFR CALC [id number] GFR Afr Amr >60 mL/min 11/01/2016 Unknow n COMPLETE BLOOD COUNT [id number] WBC 6.7 10e9/L 11/02/19 17 Unknown COMPLETE BLOOD COUNT [id number] RBC 4.04 10e12/L 2016 Unknown COMPLETE BLOOD COUNT [id number] HEMOGLOBIN 12.1 g/dL 11/02/19 17 Unknown COMPLETE BLOOD COUNT [id number] HEMATOCRIT 38.0 % 11/02/19 17 Unknown COMPLETE BLOOD COUNT [id number] MCV 94.1 fL 7 Unknown COMPLETE BLOOD COUNT [id number] MCH 30.0 pg 7 Unknown COMPLETE BLOOD COUNT 1675751 MCHC 31.8 g/dL 7 Unknown COMPLETE BLOOD COUNT [id number] PLATELET COUNT 206 10e9/L Unknown COMPLETE BLOOD COUNT [id number] Mean Plt Volume 11.3 fL Unknown COMPLETE BLOOD COUNT 1847925 Neut Auto 35.8 % 7 Unknown COMPLETE BLOOD COUNT [id number] Lymph Auto 51.6 % 11/02/19 17 Unknown COMPLETE BLOOD COUNT 6076078 [place] Auto 8.8 % 7 Unknown COMPLETE BLOOD COUNT 0733371 RDW 13.5 % 7 Unknown COMPLETE BLOOD COUNT 0301362 Eos Auto 3.4 % 7 Unknown COMPLETE BLOOD COUNT 8037180 Baso Auto 0.4 % 7 Unknown COMPLETE BLOOD COUNT [id number] Neutrophil Abs 2.40 10e9/L Unknown COMPLETE BLOOD COUNT [id number] Lymphocyte Abs 3.46 10e9/L Unknown COMPLETE BLOOD COUNT [id number] Monocyte Abs 0.59 10e9/L 10/06 Unknown COMPLETE BLOOD COUNT 6356369 Eosinophil Abs 0.23 10e9/L Unknown COMPLETE BLOOD COUNT 9877661 RDW-SD 45.3 fL 7 Unknown COMPLETE BLOOD COUNT [id number] Basophil Abs 0.03 10e9/L 10/06 Unknown THYROID STIMULATING HORMONE 49881 TSH 1.981 uIU/mL 11/01/2016 Unknown COMPLETE BLOOD COUNT [id number] WBC 6.0 10e9/L 05/14/19 17 Unknown COMPLETE BLOOD COUNT [id number] RBC 4.29 10e12/L 2016 Unknown COMPLETE BLOOD COUNT [id number] HEMOGLOBIN 12.9 g/dL 05/14/19 17 Unknown COMPLETE BLOOD COUNT [id number] HEMATOCRIT 38.4 % 05/14/19 17 Unknown COMPLETE BLOOD COUNT 3725279 MCV 89.5 fL 7 Unknown COMPLETE BLOOD COUNT 4806613 MCH 30.1 pg 7 Unknown COMPLETE BLOOD COUNT 4383390 MCHC 33.6 g/dL 7 Unknown COMPLETE BLOOD COUNT 2104060 PLATELET COUNT 181 10e9/L 11/2016 Unknown COMPLETE BLOOD COUNT 9701695 Mean Plt Volume 11.7 fL 11/2016 Unknown COMPLETE BLOOD COUNT 4734976 Neut Auto 36.9 % 7 Unknown COMPLETE BLOOD COUNT 6937343 Lymph Auto 50.4 % 05/14/19 17 Unknown COMPLETE BLOOD COUNT 8539244 [place] Auto 9.0 % 7 Unknown COMPLETE BLOOD COUNT 5150423 RDW 13.7 % 7 Unknown COMPLETE BLOOD COUNT 3570313 Eos Auto 3.4 % 7 Unknown COMPLETE BLOOD COUNT 5890469 Baso Auto 0.3 % 7 Unknown COMPLETE BLOOD COUNT 3870083 Neutrophil Abs 2.21 10e9/L Unknown COMPLETE BLOOD COUNT 8148526 Lymphocyte Abs 3.02 10e9/L Unknown COMPLETE BLOOD COUNT 7057390 Monocyte Abs 0.54 10e9/L 11/2016 Unknown COMPLETE BLOOD COUNT [id number] Eosinophil Abs 0.20 10e9/L Unknown COMPLETE BLOOD COUNT 8458026 RDW-SD 44.0 fL 7 Unknown COMPLETE BLOOD COUNT 1787314 Basophil Abs 0.02 10e9/L 11/2016 Unknown GLYCOSYLATED HEMOGLOBIN TEST 41677 Hgb A1c 90270-4 5.4 % 0 05/13/2016 Unknown THYROID STIMULATING HORMONE 17001 TSH 2.200 uIU/mL 05/13/2016 Unknown GFR CALC 8363086 GFR Non Afr Amr 50 mL/min 05/13/2016 Unk nown GFR CALC [id number] GFR Afr Amr >60 mL/min 05/13/2016 Unknow n MEAN GLUC 2030946 Calc Mean Gluc 108 mg/dL 05/13/2016 Unkn own COMPREHENSIVE METABOLIC 97900 AST 18 U/L 2016 Unknown COMPREHENSIVE METABOLIC 55195 ALT 10 U/L 2016 Unknown COMPREHENSIVE METABOLIC 57809 BUN 20 mg/dL 2016 Unknown COMPREHENSIVE METABOLIC 14309 ALBUMIN 4.1 g/dL 2016 Unknown COMPREHENSIVE METABOLIC 58500 CHLORIDE 109 mmol/L 05/13 Unknown COMPREHENSIVE METABOLIC 98354 Bili Total 0.6 mg/dL 05/13 Unknown COMPREHENSIVE METABOLIC 82122 ALK PHOS 64 U/L 2016 Unknown COMPREHENSIVE METABOLIC 55505 SODIUM 141 mmol/L 05/13 Unknown COMPREHENSIVE METABOLIC 64837 CREATININE 1.06 mg/dL 11/2016 Unknown COMPREHENSIVE METABOLIC 40444 CALCIUM 9.9 mg/dL 2016 Unknown COMPREHENSIVE METABOLIC 65079 POTASSIUM 4.2 mmol/L 05/13 Unknown COMPREHENSIVE METABOLIC 14942 Total Protein 6.3 g/dL Unknown COMPREHENSIVE METABOLIC 01839 Glucose 99 mg/dL 2016 Unknown COMPREHENSIVE METABOLIC 07657 Bicarbonate 21 mmol/L 11/2016 Unknown COMPREHENSIVE METABOLIC 88230 AGAP 11 mmol/L 2016 Unknown LIPID GROUP 62347 Cholesterol 169 mg/dL 11/25/2015 Unkno wn LIPID GROUP 56111 Triglyceride 165 mg/dL 11/25/2015 Unkn own LIPID GROUP 05639 HDL CHOLESTEROL 43 mg/dL 11/25/2015 U nknown LIPID GROUP 13421 Chol/HDL Ratio 3.93 ratio 11/25/2015 U nknown LIPID GROUP 32499 NON-HDL Chol 126 mg/dL 11/25/2015 Unkn own LIPID GROUP 58453 LDL Cholesterol 93 mg/dL 11/25/2015 U nknown COMPREHENSIVE METABOLIC 51398 AST 18 U/L 2015 Unknown COMPREHENSIVE METABOLIC 76964 ALT 10 U/L 2015 Unknown COMPREHENSIVE METABOLIC 56928 BUN 20 mg/dL 2015 Unknown COMPREHENSIVE METABOLIC 29540 ALBUMIN 3.9 g/dL 2015 Unknown COMPREHENSIVE METABOLIC 56701 CHLORIDE 110 mmol/L 11/24 Unknown COMPREHENSIVE METABOLIC 65833 Bili Total 0.5 mg/dL 11/24 Unknown COMPREHENSIVE METABOLIC 59320 ALK PHOS 72 U/L 2015 Unknown COMPREHENSIVE METABOLIC 13796 SODIUM 141 mmol/L 11/24 Unknown COMPREHENSIVE METABOLIC 87469 CREATININE 1.12 mg/dL 11/06 Unknown COMPREHENSIVE METABOLIC 65047 CALCIUM 9.7 mg/dL 2015 Unknown COMPREHENSIVE METABOLIC 13691 POTASSIUM 4.4 mmol/L 11/24 Unknown COMPREHENSIVE METABOLIC 04681 Total Protein 6.2 g/dL Unknown COMPREHENSIVE METABOLIC 37292 Glucose 90 mg/dL 2015 Unknown COMPREHENSIVE METABOLIC 36953 Bicarbonate 23 mmol/L 11/06 Unknown COMPREHENSIVE METABOLIC 91046 AGAP 8 mmol/L 2015 Unknown GFR CALC 1770242 GFR Non Afr Amr 47 mL/min 11/25/2015 Unk nown GFR CALC 4695923 GFR Afr Amr 57 mL/min 11/25/2015 Unknown GLYCOSYLATED HEMOGLOBIN TEST 91030 Hgb A1c 31049-9 5.5 % 0 11/25/2015 Unknown THYROID STIMULATING HORMONE 91717 TSH 2.537 uIU/mL 11/25/2015 Unknown FREE T4 42901 T4 Free 1.36 ng/dL 11/25/2015 Unknown COMPLETE BLOOD COUNT 1062056 WBC 6.8 10e9/L 11/25/19 16 Unknown COMPLETE BLOOD COUNT [id number] RBC 4.20 10e12/L 2015 Unknown COMPLETE BLOOD COUNT 5274943 HEMOGLOBIN 12.5 g/dL 11/25/19 16 Unknown COMPLETE BLOOD COUNT 3092055 HEMATOCRIT 38.0 % 11/25/19 16 Unknown COMPLETE BLOOD COUNT 6156192 MCV 90.5 fL 6 Unknown COMPLETE BLOOD COUNT 3742034 MCH 29.8 pg 6 Unknown COMPLETE BLOOD COUNT 9545717 MCHC 32.9 g/dL 6 Unknown COMPLETE BLOOD COUNT 3590462 PLATELET COUNT 197 10e9/L Unknown COMPLETE BLOOD COUNT 8271321 Mean Plt Volume 11.7 fL Unknown COMPLETE BLOOD COUNT 8648184 Neut Auto 41.3 % 6 Unknown COMPLETE BLOOD COUNT 3946535 Lymph Auto 47.1 % 11/25/19 16 Unknown COMPLETE BLOOD COUNT 9903259 [place] Auto 7.8 % 6 Unknown COMPLETE BLOOD COUNT 8786250 RDW 13.8 % 6 Unknown COMPLETE BLOOD COUNT 9139010 Eos Auto 3.4 % 6 Unknown COMPLETE BLOOD COUNT 0969430 Baso Auto 0.4 % 6 Unknown COMPLETE BLOOD COUNT 1732832 Neutrophil Abs 2.81 10e9/L Unknown COMPLETE BLOOD COUNT 7458568 Lymphocyte Abs 3.20 10e9/L Unknown COMPLETE BLOOD COUNT 3407858 Monocyte Abs 0.53 10e9/L 11/06 Unknown COMPLETE BLOOD COUNT 8081026 Eosinophil Abs 0.23 10e9/L Unknown COMPLETE BLOOD COUNT 4473461 RDW-SD 44.4 fL 6 Unknown COMPLETE BLOOD COUNT 3159746 Basophil Abs 0.03 10e9/L 11/06 Unknown MEAN GLUC 3744757 Calc Mean Gluc 111 mg/dL 11/25/2015 [place] [address] Glucose 89 MG/DL 02/19 [place] [address] CREATININE 1.12 MG/DL [place] [address] BUN 20 MG/DL 02/19 [place] [address] SODIUM 139 MMOL/L 02/04 [place] [address] POTASSIUM 4.6 MMOL/L 02/04 [place] [address] CHLORIDE 108 MMOL/L 02/04 [place] [address] BICARB 26 MMOL/L 02/19 [place] [address] ANION GAP 5 MEQ/L 02/19 [place] [address] CALCIUM 10.0 MG/DL 02/04 Unknown GFR CALC 3898322 GFR AA 57.0L ML/MIN 02/19/2015 Unknow n GFR CALC 7284569 GFR NON-AA 47.0L ML/MIN 02/19/2015 Unkno wn THYROID STIMULATING HORMONE 47388 TSH 2.378 uIU/ML 11/14/2014 Unknown COMPLETE BLOOD COUNT 2956603 WBC 6.4 10e9/L 11/15/19 15 Unknown COMPLETE BLOOD COUNT 8715361 RBC 3.99 10e12/L 2014 Unknown COMPLETE BLOOD COUNT 7130119 HGB 11.9 g/dL 5 Unknown COMPLETE BLOOD COUNT 7235359 HCT DET 36.9 % 5 Unknown COMPLETE BLOOD COUNT 3195994 MCV 92.5 fL 5 Unknown COMPLETE BLOOD COUNT 9339112 MCH 29.8 pg 5 Unknown COMPLETE BLOOD COUNT 1491142 MCHC 32.2 g/dL 5 Unknown COMPLETE BLOOD COUNT 5416588 PLT 172 10e9/L 11/15/19 15 Unknown COMPLETE BLOOD COUNT 5205924 MPV 11.7 fL 5 Unknown COMPLETE BLOOD COUNT 8085910 C[place]TH[place] % 40.4 % 5 Unknown COMPLETE BLOOD COUNT 9357596 LY % 48.0 % 5 Unknown COMPLETE BLOOD COUNT 8298401 MON % 8.3 % 5 Unknown COMPLETE BLOOD COUNT 8515850 EOS % 2.8 % 5 Unknown COMPLETE BLOOD COUNT 8710553 BASO % 0.5 % 5 Unknown COMPLETE BLOOD COUNT 6429762 RDW 13.6 % 5 Unknown COMPLETE BLOOD COUNT 3304368 ABS CINTHYA 2.59 10e9/L 015 Unknown COMPLETE BLOOD COUNT 8846136 ABS LYMPH 3.07 10e9/L 015 Unknown COMPLETE BLOOD COUNT 2683169 ABS MONO 0.53 10e9/L 015 Unknown COMPLETE BLOOD COUNT 5016835 ABS EOS 0.18 10e9/L 015 Unknown COMPLETE BLOOD COUNT 5026072 ABS BASO 0.03 10e9/L 015 Unknown COMPLETE BLOOD COUNT 8330794 RDW-SD 44.9 fL 5 Unknown LIPID GROUP 64767 HDL TEST 42 MG/DL 11/14/2014 Unknown LIPID GROUP 47988 TRIG 177 MG/DL 11/14/2014 Unknown LIPID GROUP 24991 TEST LDL 72 MG/DL 11/14/2014 Unknown LIPID GROUP 69954 CHOL 149 MG/DL 11/14/2014 Unknown LIPID GROUP 00064 RCHOL/HDL 3.55 RATIO 11/14/2014 Unknow n LIPID GROUP 44717 NON-HDL CH 107 MG/DL 11/14/2014 Unknow n GLYCOSYLATED HEMOGLOBIN TEST 01358 A1C HPLC 95641-4 5.5 % 0 11/14/2014 Unknown FREE T4 18016 FREE T4 1.39 NG/DL 11/14/2014 Unknown GFR CALC 5043319 GFR AA 55.0L ML/MIN 11/14/2014 Unknow n GFR CALC 5065584 GFR NON-AA 46.0L ML/MIN 11/14/2014 Unkno wn COMPREHENSIVE METABOLIC 18505 AST 17 U/L 2014 Unknown COMPREHENSIVE METABOLIC 26864 ALT 10 IU/L 2014 Unknown COMPREHENSIVE METABOLIC 02056 BUN 20 MG/DL 2014 Unknown COMPREHENSIVE METABOLIC 58048 ALBUMIN 3.9 GM/DL 2014 Unknown COMPREHENSIVE METABOLIC 64929 CHLORIDE 111 MMOL/L 11/14 Unknown COMPREHENSIVE METABOLIC 76320 BILI TOT 0.4 MG/DL 2014 Unknown COMPREHENSIVE METABOLIC 86714 ALK PHOS 70 U/L 2014 Unknown COMPREHENSIVE METABOLIC 44910 SODIUM 142 MMOL/L 11/14 Unknown COMPREHENSIVE METABOLIC 20817 CREATININE 1.16 MG/DL 11/05 Unknown COMPREHENSIVE METABOLIC 22747 CALCIUM 9.4 MG/DL 2014 Unknown COMPREHENSIVE METABOLIC 24464 POTASSIUM 4.6 MMOL/L 11/14 Unknown COMPREHENSIVE METABOLIC 40685 PROT TOT 6.2 GM/DL 2014 Unknown COMPREHENSIVE METABOLIC 33269 Glucose 90 MG/DL 2014 Unknown COMPREHENSIVE METABOLIC 72363 BICARB 24 MMOL/L 2014 Unknown COMPREHENSIVE METABOLIC 82133 ANION GAP 7 MEQ/L 2014 Unknown THYROID STIMULATING HORMONE 44781 TSH 2.427 uIU/ML 05/10/2014 Unknown LIPID GROUP 77804 HDL TEST 47 MG/DL 05/10/2014 Unknown LIPID GROUP 40380 TRIG 145 MG/DL 05/10/2014 Unknown LIPID GROUP 59815 TEST LDL 73 MG/DL 05/10/2014 Unknown LIPID GROUP 58385 CHOL 149 MG/DL 05/10/2014 Unknown LIPID GROUP 87808 RCHOL/HDL 3.17 RATIO 05/10/2014 Unknow n LIPID GROUP 87308 NON-HDL CH 102 MG/DL 05/10/2014 Unknow n COMPREHENSIVE METABOLIC 73856 AST 17 U/L 2014 Unknown COMPREHENSIVE METABOLIC 81006 ALT 9 IU/L 2014 Unknown COMPREHENSIVE METABOLIC 62300 BUN 19 MG/DL 2014 Unknown COMPREHENSIVE METABOLIC 29699 ALBUMIN 4.3 GM/DL 2014 Unknown COMPREHENSIVE METABOLIC 11016 CHLORIDE 108 MMOL/L 05/10 Unknown COMPREHENSIVE METABOLIC 53177 BILI TOT 0.5 MG/DL 2014 Unknown COMPREHENSIVE METABOLIC 03329 ALK PHOS 68 U/L 2014 Unknown COMPREHENSIVE METABOLIC 43605 SODIUM 140 MMOL/L 05/10 Unknown COMPREHENSIVE METABOLIC 12133 CREATININE 1.08 MG/DL 08/2014 Unknown COMPREHENSIVE METABOLIC 05702 CALCIUM 9.9 MG/DL 2014 Unknown COMPREHENSIVE METABOLIC 55539 POTASSIUM 4.3 MMOL/L 05/10 Unknown COMPREHENSIVE METABOLIC 29073 PROT TOT 7.2 GM/DL 2014 Unknown COMPREHENSIVE METABOLIC 30563 Glucose 94 MG/DL 2014 Unknown COMPREHENSIVE METABOLIC 57785 BICARB 26 MMOL/L 2014 Unknown COMPREHENSIVE METABOLIC 36458 ANION GAP 6 MEQ/L 2014 Unknown GFR CALC 0445087 GFR AA 60.0L ML/MIN 05/10/2014 Unknow n GFR CALC 5425298 GFR NON-AA 49.0L ML/MIN 05/10/2014 Unkno wn GLYCOSYLATED HEMOGLOBIN TEST 29491 A1C HPLC 32025-1 5.6 % 0 05/10/2014 Unknown COMPLETE BLOOD COUNT 4330015 WBC 7.2 10e9/L 05/11/19 15 Unknown COMPLETE BLOOD COUNT 3928005 RBC 4.28 10e12/L 2014 Unknown COMPLETE BLOOD COUNT 9739442 HGB 12.8 g/dL 5 Unknown COMPLETE BLOOD COUNT 5187198 HCT DET 39.3 % 5 Unknown COMPLETE BLOOD COUNT 2893230 MCV 91.8 fL 5 Unknown COMPLETE BLOOD COUNT 3793112 MCH 29.9 pg 5 Unknown COMPLETE BLOOD COUNT 8444277 MCHC 32.6 g/dL 5 Unknown COMPLETE BLOOD COUNT 8494382 PLT 189 10e9/L 05/11/19 15 Unknown COMPLETE BLOOD COUNT 3717442 MPV 11.2 fL 5 Unknown COMPLETE BLOOD COUNT 6294571 C[place]TH[place] % 38.0 % 5 Unknown COMPLETE BLOOD COUNT 4507799 LY % 51.0 % 5 Unknown COMPLETE BLOOD COUNT 4511834 MON % 7.7 % 5 Unknown COMPLETE BLOOD COUNT 6020842 EOS % 2.9 % 5 Unknown COMPLETE BLOOD COUNT 8755635 BASO % 0.4 % 5 Unknown COMPLETE BLOOD COUNT 4294437 RDW 14.0 % 5 Unknown COMPLETE BLOOD COUNT 6650428 ABS CINTHYA 2.74 10e9/L 015 Unknown COMPLETE BLOOD COUNT 9719187 ABS LYMPH 3.67 10e9/L 015 Unknown COMPLETE BLOOD COUNT 1483945 ABS MONO 0.55 10e9/L 015 Unknown COMPLETE BLOOD COUNT 2638045 ABS EOS 0.21 10e9/L 015 Unknown COMPLETE BLOOD COUNT 5246946 ABS BASO 0.03 10e9/L 015 Unknown COMPLETE BLOOD COUNT 6109607 RDW-SD 46.1 fL 5 Unknown FREE T4 98146 FREE T4 1.14 NG/DL 05/10/2014 Unknown GLYCOSYLATED HEMOGLOBIN TEST 59765 A1C HPLC 81789-1 5.2 % 0 03/29/2013 Unknown FREE T4 49486 FREE T4 1.40 NG/DL 03/28/2013 Unknown GFR CALC 5962499 GFR AA >60 ML/MIN 03/28/2013 Unknown GFR CALC 3288423 GFR NON-AA 52.0L ML/MIN 03/28/2013 Unkno wn COMPREHENSIVE METABOLIC 76747 AST 15 U/L 2013 Unknown COMPREHENSIVE METABOLIC 02094 ALT 9 IU/L 2013 Unknown COMPREHENSIVE METABOLIC 42161 BUN 17 MG/DL 2013 Unknown COMPREHENSIVE METABOLIC 92502 ALBUMIN 4.0 GM/DL 2013 Unknown COMPREHENSIVE METABOLIC 39749 CHLORIDE 112 MMOL/L 03/28 Unknown COMPREHENSIVE METABOLIC 11777 BILI TOT 0.5 MG/DL 2013 Unknown COMPREHENSIVE METABOLIC 29914 ALK PHOS 66 U/L 2013 Unknown COMPREHENSIVE METABOLIC 26886 SODIUM 140 MMOL/L 03/28 Unknown COMPREHENSIVE METABOLIC 52594 CREATININE 1.03 MG/DL 03/08 Unknown COMPREHENSIVE METABOLIC 73743 CALCIUM 9.5 MG/DL 2013 Unknown COMPREHENSIVE METABOLIC 83546 POTASSIUM 4.1 MMOL/L 03/28 Unknown COMPREHENSIVE METABOLIC 62178 PROT TOT 6.2 GM/DL 2013 Unknown COMPREHENSIVE METABOLIC 70069 Glucose 102 MG/DL 2013 Unknown COMPREHENSIVE METABOLIC 32449 BICARB 23 MMOL/L 2013 Unknown COMPREHENSIVE METABOLIC 58606 ANION GAP 5 MEQ/L 2013 Unknown THYROID STIMULATING HORMONE 99592 TSH 2.074 uIU/ML 03/28/2013 Unknown VITAMIN B 12 FOLIC ACID 81519|45215 VIT B 12 423 PG/ML 03/08 Unknown VITAMIN B 12 FOLIC ACID 32172|80327 FOLIC ACID 19.7 NG/ML Unknown LIPID GROUP 67252 HDL TEST 40 MG/DL 03/28/2013 Unknown LIPID GROUP 14525 TRIG 145 MG/DL 03/28/2013 Unknown LIPID GROUP 06665 TEST LDL 81 MG/DL 03/28/2013 Unknown LIPID GROUP 02680 CHOL 150 MG/DL 03/28/2013 Unknown LIPID GROUP 40226 RCHOL/HDL 3.75 RATIO 03/28/2013 Unknow n COMPLETE BLOOD COUNT 7443883 WBC 6.0 10e9/L 03/28/19 14 Unknown COMPLETE BLOOD COUNT 8215492 RBC 4.26 10e12/L 2013 Unknown COMPLETE BLOOD COUNT 6923014 HGB 12.7 g/dL 4 Unknown COMPLETE BLOOD COUNT 5962341 HCT DET 38.7 % 4 Unknown COMPLETE BLOOD COUNT 2361921 MCV 90.8 fL 4 Unknown COMPLETE BLOOD COUNT 5130968 MCH 29.8 pg 4 Unknown COMPLETE BLOOD COUNT 3850064 MCHC 32.8 g/dL 4 Unknown COMPLETE BLOOD COUNT 8711057 PLT 178 10e9/L 03/28/19 14 Unknown COMPLETE BLOOD COUNT 3057954 MPV 11.7 fL 4 Unknown COMPLETE BLOOD COUNT 4027731 CINTHYA % 30.5 % 4 Unknown COMPLETE BLOOD COUNT 8919469 LY % 55.4 % 4 Unknown COMPLETE BLOOD COUNT 7989505 MON % 9.0 % 4 Unknown COMPLETE BLOOD COUNT 4528395 EOS % 4.4 % 4 Unknown COMPLETE BLOOD COUNT 1114381 BASO % 0.7 % 4 Unknown COMPLETE BLOOD COUNT 1141812 RDW 13.3 % 4 Unknown COMPLETE BLOOD COUNT 9324844 ABS CINTHYA 1.83 10e9/L 014 Unknown COMPLETE BLOOD COUNT 2386346 ABS LYMPH 3.32 10e9/L 014 Unknown COMPLETE BLOOD COUNT 4566172 ABS MONO 0.54 10e9/L 014 Unknown COMPLETE BLOOD COUNT 1751030 ABS EOS 0.26 10e9/L 014 Unknown COMPLETE BLOOD COUNT 1763550 ABS BASO 0.04 10e9/L 014 Unknown COMPLETE BLOOD COUNT 2000635 RDW-SD 43.2 fL 4 Unknown HEMOGLOBIN A1C (GLYCOSYLATED) 3507796 A1C [facility] 79681-8 5.5 % 02/24/2012 Unknown COMPLETE BLOOD COUNT 1661837 WBC 6.0 10e9/L 02/23/20 12 Unknown COMPLETE BLOOD COUNT 5514594 RBC 4.22 10e12/L 2011 Unknown COMPLETE BLOOD COUNT 0443885 HGB 12.4 g/dL 2 Unknown COMPLETE BLOOD COUNT 9373409 HCT DET 38.2 % 2 Unknown COMPLETE BLOOD COUNT 9086151 MCV 90.5 fL 2 Unknown COMPLETE BLOOD COUNT 2540741 MCH 29.4 pg 2 Unknown COMPLETE BLOOD COUNT 4505906 MCHC 32.5 g/dL 2 Unknown COMPLETE BLOOD COUNT 3968367 PLT 187 10e9/L 02/23/20 12 Unknown COMPLETE BLOOD COUNT 1154517 MPV 11.5 fL 2 Unknown COMPLETE BLOOD COUNT 2938605 CINTHYA % 36.4 % 2 Unknown COMPLETE BLOOD COUNT 6084649 LY % 51.0 % 2 Unknown COMPLETE BLOOD COUNT 3884468 MON % 8.7 % 2 Unknown COMPLETE BLOOD COUNT 2710490 EOS % 3.2 % 2 Unknown COMPLETE BLOOD COUNT 9522771 BASO % 0.7 % 2 Unknown COMPLETE BLOOD COUNT 7459041 RDW 13.7 % 2 Unknown COMPLETE BLOOD COUNT 5198218 ABS CINTHYA 2.18 10e9/L 012 Unknown COMPLETE BLOOD COUNT 9122730 ABS LYMPH 3.06 10e9/L 012 Unknown COMPLETE BLOOD COUNT 6141021 ABS MONO 0.52 10e9/L 012 Unknown COMPLETE BLOOD COUNT 0591223 ABS EOS 0.19 10e9/L 012 Unknown COMPLETE BLOOD COUNT 7532145 ABS BASO 0.04 10e9/L 012 Unknown COMPLETE BLOOD COUNT 3015311 RDW-SD 44.3 fL 2 Unknown LIPID GROUP 21181 HDL TEST 42 MG/DL 02/23/2012 Unknown LIPID GROUP 25507 TRIG 156 MG/DL 02/23/2012 Unknown LIPID GROUP 60469 TEST LDL 80 MG/DL 02/23/2012 Unknown LIPID GROUP 27066 CHOL 153 MG/DL 02/23/2012 Unknown LIPID GROUP 67652 RCHOL/HDL 3.64 RATIO 02/23/2012 Unknow n FREE T4 13091 FREE T4 1.22 NG/DL 02/23/2012 Unknown COMPREHENSIVE METABOLIC 17405 AST 20 U/L 2011 Unknown COMPREHENSIVE METABOLIC 38411 ALT 11 IU/L 2011 Unknown COMPREHENSIVE METABOLIC 07144 BUN 19 MG/DL 2011 Unknown COMPREHENSIVE METABOLIC 79871 ALBUMIN 4.3 GM/DL 2011 Unknown COMPREHENSIVE METABOLIC 24279 CHLORIDE 109 MMOL/L 02/22 Unknown COMPREHENSIVE METABOLIC 16603 BILI TOT 0.6 MG/DL 2011 Unknown COMPREHENSIVE METABOLIC 63465 ALK PHOS 84 U/L 2011 Unknown COMPREHENSIVE METABOLIC 90743 SODIUM 142 MMOL/L 02/22 Unknown COMPREHENSIVE METABOLIC 47917 CREATININE 1.09 MG/DL 02/04 Unknown COMPREHENSIVE METABOLIC 75009 CALCIUM 9.8 MG/DL 2011 Unknown COMPREHENSIVE METABOLIC 77273 POTASSIUM 4.2 MMOL/L 02/22 Unknown COMPREHENSIVE METABOLIC 26762 PROT TOT 6.4 GM/DL 2011 Unknown COMPREHENSIVE METABOLIC 80147 Glucose 89 MG/DL 2011 Unknown COMPREHENSIVE METABOLIC 82288 BICARB 25 MMOL/L 2011 Unknown COMPREHENSIVE METABOLIC 43132 ANION GAP 8 MEQ/L 2011 Unknown GFR CALC 3486729 GFR AA 60.0L ML/MIN 02/23/2012 Unknow n GFR CALC 5623250 GFR NON-AA 49.0L ML/MIN 02/23/2012 Unkno wn THYROID STIMULATING HORMONE 66986 TSH 2.450 uIU/ML 02/23/2012 Unknown COMPREHENSIVE METABOLIC 90011 AST 22 U/L 2011 Unknown COMPREHENSIVE METABOLIC 14579 ALT 14 IU/L 2011 Unknown COMPREHENSIVE METABOLIC 93394 BUN 21 MG/DL 2011 Unknown COMPREHENSIVE METABOLIC 91910 ALBUMIN 4.3 GM/DL 2011 Unknown COMPREHENSIVE METABOLIC 11903 CHLORIDE 106 MMOL/L 04/01 Unknown COMPREHENSIVE METABOLIC 67724 BILI TOT 0.4 MG/DL 2011 Unknown COMPREHENSIVE METABOLIC 06463 ALK PHOS 80 U/L 2011 Unknown COMPREHENSIVE METABOLIC 95313 SODIUM 141 MMOL/L 04/01 Unknown COMPREHENSIVE METABOLIC 41985 CREATININE 1.13 MG/DL 03/08 Unknown COMPREHENSIVE METABOLIC 87656 CALCIUM 9.4 MG/DL 2011 Unknown COMPREHENSIVE METABOLIC 61538 POTASSIUM 4.3 MMOL/L 04/01 Unknown COMPREHENSIVE METABOLIC 61025 PROT TOT 6.7 GM/DL 2011 Unknown COMPREHENSIVE METABOLIC 92001 Glucose 98 MG/DL 2011 Unknown COMPREHENSIVE METABOLIC 41930 BICARB 25 MMOL/L 2011 Unknown COMPREHENSIVE METABOLIC 99447 ANION GAP 10 MEQ/L 2011 Unknown LIPID GROUP 57385 HDL TEST 44 MG/DL 04/01/2011 Unknown LIPID GROUP 92305 TRIG 164 MG/DL 04/01/2011 Unknown LIPID GROUP 47027 TEST LDL 98 MG/DL 04/01/2011 Unknown LIPID GROUP 66281 CHOL 175 MG/DL 04/01/2011 Unknown LIPID GROUP 18155 RCHOL/HDL 3.98 RATIO 04/01/2011 Unknow n COMPLETE BLOOD COUNT 39262 WBC 6.7 10e9/L 04/01/19 12 Unknown COMPLETE BLOOD COUNT 19535 RBC 4.36 10e12/L 2011 Unknown COMPLETE BLOOD COUNT 14627 HGB 12.9 g/dL 2 Unknown COMPLETE BLOOD COUNT 06681 HCT DET 39.4 % 2 Unknown COMPLETE BLOOD COUNT 30339 MCV 90.4 fL 2 Unknown COMPLETE BLOOD COUNT 94614 MCH 29.6 pg 2 Unknown COMPLETE BLOOD COUNT 69026 MCHC 32.7 g/dL 2 Unknown COMPLETE BLOOD COUNT 40403 PLT 184 10e9/L 04/01/19 12 Unknown COMPLETE BLOOD COUNT 44127 MPV 10.9 fL 2 Unknown COMPLETE BLOOD COUNT 56794 CINTHYA % 41.5 % 2 Unknown COMPLETE BLOOD COUNT 62994 LY % 45.7 % 2 Unknown COMPLETE BLOOD COUNT 38310 MON % 9.4 % 2 Unknown COMPLETE BLOOD COUNT 39049 EOS % 3.0 % 2 Unknown COMPLETE BLOOD COUNT 72037 BASO % 0.4 % 2 Unknown COMPLETE BLOOD COUNT 73489 RDW 13.2 % 2 Unknown COMPLETE BLOOD COUNT 71316 ABS CINTHYA 2.78 10e9/L 012 Unknown COMPLETE BLOOD COUNT 98247 ABS LYMPH 3.06 10e9/L 012 Unknown COMPLETE BLOOD COUNT 03450 ABS MONO 0.63 10e9/L 012 Unknown COMPLETE BLOOD COUNT 76164 ABS EOS 0.20 10e9/L 012 Unknown COMPLETE BLOOD COUNT 30303 ABS BASO 0.03 10e9/L 012 Unknown COMPLETE BLOOD COUNT 19185 RDW-SD 42.3 fL 2 Unknown GFR CALC 1924759 GFR AA 57.0L ML/MIN 04/01/2011 Unknow n GFR CALC 3671180 GFR NON-AA 47.0L ML/MIN 04/01/2011 Unkno wn THYROID STIMULATING HORMONE 96960 TSH 2.663 uIU/ML 04/01/2011 Unknown FREE T4 10362 FREE T4 1.15 NG/DL 04/01/2011 Unknown THYROID STIMULATING HORMONE 92696 TSH 1.908 uIU/ML 07/06/2010 Unknown COMPLETE BLOOD COUNT 87345 WBC 6.4 10e9/L 07/07/19 11 Unknown COMPLETE BLOOD COUNT 27509 RBC 3.92 10e12/L 2010 Unknown COMPLETE BLOOD COUNT 45894 HGB 11.8 g/dL 1 Unknown COMPLETE BLOOD COUNT 97264 HCT DET 36.0 % 1 Unknown COMPLETE BLOOD COUNT 78600 MCV 91.8 fL 1 Unknown COMPLETE BLOOD COUNT 37421 MCH 30.1 pg 1 Unknown COMPLETE BLOOD COUNT 33312 MCHC 32.8 g/dL 1 Unknown COMPLETE BLOOD COUNT 83261 PLT 176 10e9/L 07/07/19 11 Unknown COMPLETE BLOOD COUNT 29993 MPV 11.4 fL 1 Unknown COMPLETE BLOOD COUNT 73774 CINTHYA % 50.4 % 1 Unknown COMPLETE BLOOD COUNT 95120 LY % 35.5 % 1 Unknown COMPLETE BLOOD COUNT 20958 MON % 10.2 % 1 Unknown COMPLETE BLOOD COUNT 58701 EOS % 3.3 % 1 Unknown COMPLETE BLOOD COUNT 65233 BASO % 0.6 % 1 Unknown COMPLETE BLOOD COUNT 97407 RDW 13.7 % 1 Unknown COMPLETE BLOOD COUNT 62568 ABS CINTHYA 3.23 10e9/L 011 Unknown COMPLETE BLOOD COUNT 29956 ABS LYMPH 2.27 10e9/L 011 Unknown COMPLETE BLOOD COUNT 25901 ABS MONO 0.65 10e9/L 011 Unknown COMPLETE BLOOD COUNT 88878 ABS EOS 0.21 10e9/L 011 Unknown COMPLETE BLOOD COUNT 45966 ABS BASO 0.04 10e9/L 011 Unknown COMPLETE BLOOD COUNT 51084 RDW-SD 45.3 fL 1 Unknown GFR CALC [id number] GFR AA >60 ML/MIN 07/06/2010 Unknown GFR CALC [id number] GFR NON-AA 53.0L ML/MIN 07/06/2010 Unkno wn FREE T4 74498 FREE T4 1.20 NG/DL 07/06/2010 Unknown COMPREHENSIVE METABOLIC 54379 AST 17 U/L 2010 Unknown COMPREHENSIVE METABOLIC 93285 ALT 9 IU/L 2010 Unknown COMPREHENSIVE METABOLIC 80130 BUN 16 MG/DL 2010 Unknown COMPREHENSIVE METABOLIC 17592 ALBUMIN 4.0 GM/DL 2010 Unknown COMPREHENSIVE METABOLIC 76887 CHLORIDE 108 MMOL/L 07/06 Unknown COMPREHENSIVE METABOLIC 36839 BILI TOT 0.5 MG/DL 2010 Unknown COMPREHENSIVE METABOLIC 23561 ALK PHOS 76 U/L 2010 Unknown COMPREHENSIVE METABOLIC 30708 SODIUM 139 MMOL/L 07/06 Unknown COMPREHENSIVE METABOLIC 09172 CREATININE 1.02 MG/DL 04/2010 Unknown COMPREHENSIVE METABOLIC 79222 CALCIUM 9.2 MG/DL 2010 Unknown COMPREHENSIVE METABOLIC 44662 POTASSIUM 4.5 MMOL/L 07/06 Unknown COMPREHENSIVE METABOLIC 47681 PROT TOT 6.1 GM/DL 2010 Unknown COMPREHENSIVE METABOLIC 72445 Glucose 93 MG/DL 2010 Unknown COMPREHENSIVE METABOLIC 11278 BICARB 26 MMOL/L 2010 Unknown COMPREHENSIVE METABOLIC 81785 ANION GAP 5 MEQ/L 2010 Unknown LIPID GROUP 46272 HDL TEST 46 MG/DL 07/06/2010 Unknown LIPID GROUP 40265 TRIG 102 MG/DL 07/06/2010 Unknown LIPID GROUP 33051 TEST LDL 88 MG/DL 07/06/2010 Unknown LIPID GROUP 88671 CHOL 154 MG/DL 07/06/2010 Unknown LIPID GROUP 19147 RCHOL/HDL 3.35 RATIO 07/06/2010 Unknow n Procedures Procedure Codes Date ROUTINE VENIPUNCTURE CPT-4: 35982 03/13/2019 ASSAY THYROID STIM HORMONE CPT-4: 66768 03/13/2019 COMPLETE CBC W/AUTO DIFF WBC CPT-4: 58738 03/13/2019 COMPREHEN METABOLIC PANEL CPT-4: 58381 03/13/2019 ROUTINE VENIPUNCTURE CPT-4: 39308 01/23/2019 LIPID PANEL CPT-4: 97012 01/23/2019 FLU VACC PRSV FREE INC ANTIG 65 AND OLDER CPT-4: 11378 12/26/2018 FLU VACC PRSV FREE INC ANTIG 65 AND OLDER CPT-4: 71958 12/26/2018 ADMIN INFLUENZA VIRUS VAC CPT-4: G0008 12/26/2018 COMPREHEN METABOLIC PANEL CPT-4: 98882 12/15/2018 ROUTINE VENIPUNCTURE CPT-4: 32686 12/15/2018 ROUTINE VENIPUNCTURE CPT-4: 48914 08/14/2018 ASSAY THYROID STIM HORMONE CPT-4: 84906 08/14/2018 COMPREHEN METABOLIC PANEL CPT-4: 20182 08/14/2018 COMPLETE CBC W/AUTO DIFF WBC CPT-4: 68328 08/14/2018 URINALYSIS NONAUTO W/O SCOPE CPT-4: 90960 05/10/2018 URINE CULTURE/ COLONY COUNT CPT-4: 29229 05/10/2018 URINE CULTURE/ COLONY COUNT CPT-4: 75704 12/06/2017 ROUTINE VENIPUNCTURE CPT-4: 48890 11/30/2017 ASSAY OF FREE THYROXINE CPT-4: 87749 11/30/2017 ASSAY THYROID STIM HORMONE CPT-4: 50817 11/30/2017 COMPLETE CBC W/AUTO DIFF WBC CPT-4: 98961 11/30/2017 METABOLIC PANEL TOTAL CA CPT-4: 73089 11/30/2017 FLU VACC PRSV FREE INC ANTIG 65 AND OLDER CPT-4: 34335 11/22/2017 ASSAY, GLUCOSE, BLOOD QUANT CPT-4: 71820 11/22/2017 ADMIN INFLUENZA VIRUS VAC CPT-4: G0008 11/22/2017 ROUTINE VENIPUNCTURE CPT-4: 49685 09/27/2017 COMPREHEN METABOLIC PANEL CPT-4: 32853 09/27/2017 COMPLETE CBC W/AUTO DIFF WBC CPT-4: 65045 09/27/2017 A1C HPLC CPT-4: 05147 09/27/2017 ASSAY OF TROPONIN QUANT CPT-4: 22384 09/27/2017 LIPID PANEL CPT-4: 31985 09/27/2017 THER/PROPH/DIAG INJ SC/IM CPT-4: 71899 05/30/2017 TRIAMCINOLONE ACET INJ NOS CPT-4: J3301 05/30/2017 URINALYSIS NONAUTO W/O SCOPE CPT-4: 93622 04/18/2017 URINE CULTURE/ COLONY COUNT CPT-4: 87981 04/18/2017 FLU VACC PRSV FREE INC ANTIG 65 AND OLDER CPT-4: 79857 12/10/2016 ADMIN INFLUENZA VIRUS VAC CPT-4: G0008 12/10/2016 ROUTINE VENIPUNCTURE CPT-4: 82768 11/01/2016 COMPREHEN METABOLIC PANEL CPT-4: 02334 11/01/2016 COMPLETE CBC W/AUTO DIFF WBC CPT-4: 11798 11/01/2016 LIPID PANEL CPT-4: 30572 11/01/2016 A1C HPLC CPT-4: 28542 11/01/2016 ASSAY THYROID STIM HORMONE CPT-4: 03174 11/01/2016 ROUTINE VENIPUNCTURE CPT-4: 37393 05/13/2016 ASSAY THYROID STIM HORMONE CPT-4: 58369 05/13/2016 COMPREHEN METABOLIC PANEL CPT-4: 99627 05/13/2016 COMPLETE CBC W/AUTO DIFF WBC CPT-4: 99088 05/13/2016 A1C HPLC CPT-4: 44121 05/13/2016 FLU VACC PRSV FREE INC ANTIG 65 AND OLDER CPT-4: 58309 12/12/2015 ADMIN INFLUENZA VIRUS VAC CPT-4: G0008 12/12/2015 ROUTINE VENIPUNCTURE CPT-4: 98792 11/25/2015 ASSAY OF FREE THYROXINE CPT-4: 55573 11/25/2015 ASSAY THYROID STIM HORMONE CPT-4: 32230 11/25/2015 COMPREHEN METABOLIC PANEL CPT-4: 44294 11/25/2015 COMPLETE CBC W/AUTO DIFF WBC CPT-4: 79262 11/25/2015 LIPID PANEL CPT-4: 59052 11/25/2015 A1C HPLC CPT-4: 59680 11/25/2015 URINALYSIS NONAUTO W/O SCOPE CPT-4: 11810 05/21/2015 ROUTINE VENIPUNCTURE CPT-4: 81150 02/19/2015 METABOLIC PANEL TOTAL CA CPT-4: 09348 02/19/2015 PRESCRIP TRANSMIT VIA ERX SY CPT-4: G8553 02/19/2015 FLU VACC PRSV FREE INC ANTIG 65 AND OLDER CPT-4: 60519 12/20/2014 ADMIN INFLUENZA VIRUS VAC CPT-4: G0008 12/20/2014 URINALYSIS NONAUTO W/O SCOPE CPT-4: 93344 11/19/2014 URINE CULTURE/ COLONY COUNT CPT-4: 88044 11/19/2014 ROUTINE VENIPUNCTURE CPT-4: 00472 11/14/2014 ASSAY OF FREE THYROXINE CPT-4: 30919 11/14/2014 ASSAY THYROID STIM HORMONE CPT-4: 88871 11/14/2014 COMPREHEN METABOLIC PANEL CPT-4: 96469 11/14/2014 COMPLETE CBC W/AUTO DIFF WBC CPT-4: 20343 11/14/2014 LIPID PANEL CPT-4: 16699 11/14/2014 A1C HPLC CPT-4: 18132 11/14/2014 CERUM REMOVAL CPT-4: 23379 09/27/2014 PRESCRIP TRANSMIT VIA ERX SY CPT-4: G8553 07/11/2014 FLUZONE, 5ML (Medicare) CPT-4: Q2038 12/21/2013 ADMIN INFLUENZA VIRUS VAC CPT-4: G0008 12/21/2013 PRESCRIP TRANSMIT VIA ERX SY CPT-4: G8553 10/17/2013 PRESCRIP TRANSMIT VIA ERX SY CPT-4: G8553 09/24/2013 PRESCRIP TRANSMIT VIA ERX SY CPT-4: G8553 05/31/2013 ROUTINE VENIPUNCTURE CPT-4: 70582 03/28/2013 ASSAY OF FREE THYROXINE CPT-4: 34907 03/28/2013 ASSAY THYROID STIM HORMONE CPT-4: 44622 03/28/2013 COMPREHEN METABOLIC PANEL CPT-4: 23890 03/28/2013 COMPLETE CBC W/AUTO DIFF WBC CPT-4: 78549 03/28/2013 LIPID PANEL CPT-4: 30121 03/28/2013 A1C HPLC CPT-4: 81241 03/28/2013 VITAMIN B 12 FOLIC ACID CPT-4: 47805|19344 03/28/2013 PRESCRIP TRANSMIT VIA ERX SY CPT-4: G8553 03/26/2013 PRESCRIP TRANSMIT VIA ERX SY CPT-4: G8553 12/19/2012 FLUZONE, 5ML (Medicare) CPT-4: Q2038 11/27/2012 ADMIN INFLUENZA VIRUS VAC CPT-4: G0008 11/27/2012 PRESCRIP TRANSMIT VIA ERX SY CPT-4: G8553 10/04/2012 PRESCRIP TRANSMIT VIA ERX SY CPT-4: G8553 07/14/2012 ROUTINE VENIPUNCTURE CPT-4: 70444 02/23/2012 ASSAY OF FREE THYROXINE CPT-4: 31164 02/23/2012 ASSAY THYROID STIM HORMONE CPT-4: 90000 02/23/2012 COMPREHEN METABOLIC PANEL CPT-4: 79174 02/23/2012 COMPLETE CBC W/AUTO DIFF WBC CPT-4: 15364 02/23/2012 LIPID PANEL CPT-4: 18156 02/23/2012 A1C GLYCOSYLATED HEMOGLOBIN TEST CPT-4: 95950 012 CERUM REMOVAL CPT-4: 67594 02/22/2012 PRESCRIP TRANSMIT VIA ERX SY CPT-4: G8553 02/22/2012 PRESCRIP TRANSMIT VIA ERX SY CPT-4: G8553 12/15/2011 FLUZONE, 5ML (Medicare) CPT-4: Q2038 12/02/2011 ADMIN INFLUENZA VIRUS VAC CPT-4: G0008 12/02/2011 ASSAY, GLUCOSE, BLOOD QUANT CPT-4: 56751 09/21/2011 URINALYSIS NONAUTO W/O SCOPE CPT-4: 94033 09/16/2011 URINE CULTURE/ COLONY COUNT CPT-4: 02351 09/16/2011 ROUTINE VENIPUNCTURE CPT-4: 99930 09/15/2011 ASSAY OF FREE THYROXINE CPT-4: 53734 09/15/2011 ASSAY THYROID STIM HORMONE CPT-4: 82942 09/15/2011 COMPREHEN METABOLIC PANEL CPT-4: 26564 09/15/2011 COMPLETE CBC W/AUTO DIFF WBC CPT-4: 15245 09/15/2011 LIPID PANEL CPT-4: 34104 09/15/2011 ASSAY OF INSULIN CPT-4: 03798 09/15/2011 A1C GLYCOSYLATED HEMOGLOBIN TEST CPT-4: 67831 012 DRAIN/INJECT JOINT/BURSA CPT-4: 93744 08/16/2011 METHYLPREDNISOLONE 40 MG INJ CPT-4: J1030 08/16/2011 TRIAMCINOLONE ACET INJ NOS CPT-4: J3301 08/16/2011 PRESCRIP TRANSMIT VIA ERX SY CPT-4: G8553 08/03/2011 PRESCRIP TRANSMIT VIA ERX SY CPT-4: G8553 07/26/2011 METHYLPREDNISOLONE 40 MG INJ CPT-4: J1030 06/28/2011 DRAIN/INJECT JOINT/BURSA CPT-4: 82374 06/28/2011 TRIAMCINOLONE ACET INJ NOS CPT-4: J3301 06/28/2011 PRESCRIP TRANSMIT VIA ERX SY CPT-4: G8553 06/28/2011 ROUTINE VENIPUNCTURE CPT-4: 06446 04/01/2011 ASSAY OF FREE THYROXINE CPT-4: 21924 04/01/2011 ASSAY THYROID STIM HORMONE CPT-4: 25208 04/01/2011 COMPREHEN METABOLIC PANEL CPT-4: 71551 04/01/2011 COMPLETE CBC W/AUTO DIFF WBC CPT-4: 86312 04/01/2011 LIPID PANEL CPT-4: 70677 04/01/2011 PRESCRIP TRANSMIT VIA ERX SY CPT-4: G8553 03/31/2011 CERUM REMOVAL CPT-4: 51096 02/11/2011 PRESCRIP TRANSMIT VIA ERX SY CPT-4: G8553 02/11/2011 FLUZONE, 5ML (Medicare) CPT-4: Q2038 12/09/2010 ADMIN INFLUENZA VIRUS VAC CPT-4: G0008 12/09/2010 PRESCRIP TRANSMIT VIA ERX SY CPT-4: G8553 10/15/2010 URINALYSIS NONAUTO W/O SCOPE CPT-4: 34648 09/29/2010 URINE CULTURE/ COLONY COUNT CPT-4: 00326 09/29/2010 CUR TOBACCO NON-USER CPT-4: G8457 09/29/2010 ROUTINE VENIPUNCTURE CPT-4: 28837 07/06/2010 COMPLETE CBC W/AUTO DIFF WBC CPT-4: 92172 07/06/2010 COMPREHEN METABOLIC PANEL CPT-4: 37106 07/06/2010 LIPID PANEL CPT-4: 83823 07/06/2010 ASSAY THYROID STIM HORMONE CPT-4: 91151 07/06/2010 ASSAY OF FREE THYROXINE CPT-4: 00862 07/06/2010 PRESCRIP TRANSMIT VIA ERX SY CPT-4: G8553 07/02/2010 INJ TRIGGER POINT 1/2 MUSCL CPT-4: 04784 04/06/2010 TRIAMCINOLONE ACET INJ NOS CPT-4: J3301 04/06/2010 METHYLPREDNISOLONE 40 MG INJ CPT-4: J1030 04/06/2010 THER/PROPH/DIAG INJ SC/IM CPT-4: 98599 04/01/2010 KETOROLAC TROMETHAMINE INJ CPT-4: J1885 04/01/2010 PRESCRIP TRANSMIT VIA ERX SY CPT-4: G8553 01/22/2010 FLU VACCINE 3 YRS & > IM UP 64 CPT-4: 29230 0 ADMIN INFLUENZA VIRUS VAC CPT-4: G0008 12/10/2009 URINALYSIS NONAUTO W/O SCOPE CPT-4: 03624 12/02/2009 URINE CULTURE/ COLONY COUNT CPT-4: 55613 12/02/2009 PRESCRIP TRANSMIT VIA ERX SY CPT-4: G8553 12/02/2009 THER/PROPH/DIAG INJ SC/IM CPT-4: 44525 09/10/2009 VITAMIN B12 INJECTION CPT-4: J3420 09/10/2009 THER/PROPH/DIAG INJ SC/IM CPT-4: 09705 08/11/2009 VITAMIN B12 INJECTION CPT-4: J3420 08/11/2009 ROUTINE VENIPUNCTURE CPT-4: 83725 06/10/2009 Vital Signs Date Vital 03/13/2019 Blood [...] 1: 142/60 Code: 8480-6 BMI: 38.2 Code: 45306-7 Heart Rate 1: 48 bpm Height: 5'2" Respiratory Rate: 20 bpm SpO2: 98% Tempera ture: 36.7 (C) / 98.1 (F) Weight: 212 lbs 01/10/2018 Blood Pressure 1: 142/64 Code: 8480-6 BMI: 38.5 Code: 54177-4 Heart Rate 1: 52 bpm Height: 5'2" Respiratory Rate: 22 bpm SpO2: 96% Tempera ture: 36.1 (C) / 96.9 (F) Weight: 214 lbs 12/06/2017 Blood Pressure 1: 124/80 Code: 8480-6 BMI: 38.3 Code: 19462-6 Heart Rate 1: 68 bpm Height: 5'2" Respiratory Rate: 20 bpm Temperature: 36 .3 (C) / 97.4 (F) Weight: 213 lbs 11/22/2017 Blood Pressure 1: 132/78 Code: 8480-6 BMI: 37.6 Code: 11016-6 Heart Rate 1: 68 bpm Height: 5'2" Respiratory Rate: 20 bpm SpO2: 97% Tempera ture: 36.8 (C) / 98.2 (F) Weight: 209 lbs 10/20/2017 Blood Pressure 1: 150/76 Code: 8480-6 BMI: 38.5 Code: 14440-9 Heart Rate 1: 64 bpm Height: 5'2" Respiratory Rate: 20 bpm SpO2: 97% Tempera ture: 36.2 (C) / 97.2 (F) Weight: 214 lbs 09/27/2017 Blood Pressure 1: 122/74 Code: 8480-6 BMI: 38.2 Code: 93557-3 Heart Rate 1: 64 bpm Height: 5'2" Respiratory Rate: 18 bpm SpO2: 96% Tempera ture: 35.8 (C) / 96.4 (F) Weight: 212 lbs 08/16/2017 Blood Pressure 1: 124/78 Code: 8480-6 BMI: 37.8 Code: 99683-9 Heart Rate 1: 76 bpm Height: 5'2" Respiratory Rate: 20 bpm Temperature: 36 .8 (C) / 98.3 (F) Weight: 210 lbs 07/07/2017 Blood Pressure 1: 136/70 Code: 8480-6 BMI: 38.0 Code: 29712-5 Heart Rate 1: 68 bpm Height: 5'2" Respiratory Rate: 20 bpm SpO2: 97% Tempera ture: 36.8 (C) / 98.2 (F) Weight: 211 lbs 05/30/2017 Blood Pressure 1: 140/65 Code: 8480-6 Heart Rate 1: 75 bpm Respiratory Rate: 24 bpm SpO2: 95% Temperature: 37.0 (C) / 98.6 (F) We ight: 211 lbs 04/18/2017 Blood Pressure 1: 154/70 Code: 8480-6 BMI: 37.6 Code: 04165-0 Heart Rate 1: 76 bpm Height: 5'2" Respiratory Rate: 20 bpm SpO2: 98% Tempera ture: 36.9 (C) / 98.5 (F) Weight: 209 lbs 10/25/2016 Blood Pressure 1: 156/70 Code: 8480-6 BMI: 37.1 Code: 52523-9 Heart Rate 1: 72 bpm Height: 5'2" Respiratory Rate: 20 bpm SpO2: 97% Tempera ture: 37.0 (C) / 98.6 (F) Weight: 206 lbs 09/20/2016 Blood Pressure 1: 152/78 Code: 8480-6 BMI: 36.8 Code: 10247-6 Heart Rate 1: 78 bpm Height: 5'2" Respiratory Rate: 20 bpm SpO2: 98% Tempera ture: 36.1 (C) / 97.0 (F) Weight: 204 lbs 05/12/2016 Blood Pressure 1: 142/70 Code: 8480-6 BMI: 36.9 Code: 20915-4 Heart Rate 1: 64 bpm Height: 5'2" [...] 1: 122/64 Code: 8480-6 BMI: 39.1 Code: 91910-8 Heart Rate 1: 76 bpm Height: 5'2" Respiratory Rate: 20 bpm Temperature: 36 .8 (C) / 98.2 (F) Weight: 217 lbs 05/21/2015 Blood Pressure 1: 144/70 Code: 8480-6 BMI: 39.4 Code: 10194-6 Heart Rate 1: 76 bpm Height: 5'2" Respiratory Rate: 20 bpm Temperature: 36 .6 (C) / 97.9 (F) Weight: 219 lbs 02/19/2015 Blood Pressure 1: 152/60 Code: 8480-6 BMI: 39.6 Code: 93374-1 Heart Rate 1: 84 bpm Height: 5'2" Respiratory Rate: 20 bpm Temperature: 37 .0 (C) / 98.6 (F) Weight: 220 lbs 11/13/2014 Blood Pressure 1: 146/76 Code: 8480-6 BMI: 39.8 Code: 51610-7 Heart Rate 1: 88 bpm Height: 5'2" Respiratory Rate: 20 bpm Temperature: 37 .0 (C) / 98.6 (F) Weight: 221 lbs 09/27/2014 Blood Pressure 1: 132/70 Code: 8480-6 BMI: 39.1 Code: 84654-1 Heart Rate 1: 88 bpm Height: 5'2" Respiratory Rate: 20 bpm Temperature: 36 .4 (C) / 97.6 (F) Weight: 217 lbs 07/11/2014 Blood Pressure 1: 132/66 Code: 8480-6 BMI: 39.9 Code: 59454-2 Heart Rate 1: 72 bpm Height: 5'2" Respiratory Rate: 20 bpm Temperature: 36 .9 (C) / 98.4 (F) Weight: 218 lbs 05/23/2014 Blood Pressure 1: 136/80 Code: 8480-6 Heart Rate 1: 76 bpm Respiratory Rate: 20 bpm Temperature: 36.7 (C) / 98.0 (F) Weight: 224 lbs 03/20/2014 Blood Pressure 1: 134/78 Code: 8480-6 BMI: 39.7 Code: 88776-8 Heart Rate 1: 84 bpm Height: 5'2" Respiratory Rate: 20 bpm Temperature: 36 .7 (C) / 98.0 (F) Weight: 217 lbs 10/17/2013 Blood Pressure 1: 146/78 Code: 8480-6 BMI: 39.5 Code: 84998-1 Heart Rate 1: 82 bpm Height: 5'2" Respiratory Rate: 18 bpm Temperature: 35 .6 (C) / 96.1 (F) Weight: 216 lbs 09/24/2013 Blood Pressure 1: 134/70 Code: 8480-6 BMI: 37.9 Code: 12991-5 Heart Rate 1: 80 bpm Height: 5'3" Respiratory Rate: 20 bpm Temperature: 36 .8 (C) / 98.2 (F) Weight: 214 lbs 05/31/2013 Blood Pressure 1: 132/70 Code: 8480-6 BMI: 37.6 Code: 44131-3 Heart Rate 1: 80 bpm Height: 5'3" Respiratory Rate: 20 bpm Temperature: 36 .8 (C) / 98.3 (F) Weight: 212 lbs 03/26/2013 Blood Pressure 1: 116/74 Code: 8480-6 Heart Rate 1: 68 bpm Respiratory Rate: 20 bpm Temperature: 36.2 (C) / 97.1 (F) Weight: 212 lbs 12/19/2012 Blood Pressure 1: 132/82 Code: 8480-6 BMI: 37.4 Code: 36658-7 Heart Rate 1: 76 bpm Height: 5'3" Respiratory Rate: 20 bpm Temperature: 36 .7 (C) / 98.0 (F) Weight: 211 lbs 12/04/2012 Blood Pressure 1: 130/76 Code: 8480-6 He art Rate 1: 78 bpm 11/27/2012 Blood Pressure 1: 140/82 Code: 8480-6 BMI: 36.8 Code: 63059-2 Heart Rate 1: 66 bpm Height: 5'3" Respiratory Rate: 20 bpm Temperature: 36 .1 (C) / 96.9 (F) Weight: 208 lbs 10/04/2012 Blood Pressure 1: 138/80 Code: 8480-6 BMI: 36.4 Code: 41854-0 Heart Rate 1: 72 bpm Height: 5'4" Respiratory Rate: 20 bpm Temperature: 36 .7 (C) / 98.0 (F) Weight: 212 lbs 07/27/2012 Blood Pressure 1: 124/70 Code: 8480-6 BMI: 36.9 Code: 37807-8 Heart Rate 1: 60 bpm Height: 5'4" Temperature: 36.1 (C) / 97.0 (F) Weight: 215 lbs 07/14/2012 Blood Pressure 1: 132/86 Code: 8480-6 BMI: 36.9 Code: 08781-1 Heart Rate 1: 76 bpm Height: 5'4" Respiratory Rate: 20 bpm Temperature: 36 .8 (C) / 98.2 (F) Weight: 215 lbs 06/08/2012 Blood Pressure 1: 134/82 Code: 8480-6 BMI: 36.6 Code: 91870-3 Heart Rate 1: 72 bpm Height: 5'4" Respiratory Rate: 20 bpm Temperature: 36 .3 (C) / 97.4 (F) Weight: 213 lbs 02/22/2012 Blood Pressure 1: 142/80 Code: 8480-6 BMI: 37.1 Code: 01609-8 Heart Rate 1: 76 bpm Height: 5'4" Respiratory Rate: 20 bpm Temperature: 36 .8 (C) / 98.3 (F) Weight: 216 lbs 12/28/2011 Blood Pressure 1: 128/68 Code: 8480-6 BMI: 37.6 Code: 80780-8 Heart Rate 1: 72 bpm Height: 5'4" [...] 1: 128/78 Code: 8480-6 BMI: 38.1 Code: 89027-9 Heart Rate 1: 84 bpm Height: 5'4" Respiratory Rate: 20 bpm Temperature: 36 .9 (C) / 98.4 (F) Weight: 222 lbs 08/16/2011 Blood Pressure 1: 138/80 Code: 8480-6 BMI: 37.9 Code: 80759-8 Heart Rate 1: 74 bpm Height: 5'4" Temperature: 36.1 (C) / 97.0 (F) Weight: 221 lbs 08/03/2011 Blood Pressure 1: 126/78 Code: 8480-6 BMI: 38.4 Code: 63371-7 Heart Rate 1: 72 bpm Height: 5'4" Respiratory Rate: 20 bpm Temperature: 36 .7 (C) / 98.0 (F) Weight: 224 lbs 07/26/2011 Blood Pressure 1: 138/72 Code: 8480-6 BMI: 38.4 Code: 76527-4 Heart Rate 1: 72 bpm Height: 5'4" Respiratory Rate: 20 bpm Temperature: 36 .6 (C) / 97.9 (F) Weight: 224 lbs 06/28/2011 Blood Pressure 1: 122/78 Code: 8480-6 BMI: 38.8 Code: 10198-7 Heart Rate 1: 88 bpm Height: 5'4" Respiratory Rate: 20 bpm Temperature: 36 .6 (C) / 97.8 (F) Weight: 226 lbs 03/31/2011 Blood Pressure 1: 116/60 Code: 8480-6 BMI: 38.1 Code: 80857-7 Heart Rate 1: 92 bpm Height: 5'4" Respiratory Rate: 20 bpm Temperature: 36 .8 (C) / 98.2 (F) Weight: 222 lbs 02/11/2011 Blood Pressure 1: 118/62 Code: 8480-6 BMI: 37.9 Code: 41970-5 Heart Rate 1: 80 bpm Height: 5'4" Temperature: 36.5 (C) / 97.7 (F) Weight: 221 lbs 10/15/2010 Blood Pressure 1: 132/70 Code: 8480-6 Heart Rate 1: 84 bpm Respiratory Rate: 20 bpm Temperature: 36.7 (C) / 98.0 (F) Weight: 221 lbs 09/29/2010 Blood Pressure 1: 114/72 Code: 8480-6 BMI: 37.6 Code: 07703-5 Heart Rate 1: 76 bpm Height: 5'4" [...] 1: 120/70 Code: 8480-6 BMI: 38.3 Code: 71523-4 Heart Rate 1: 88 bpm Height: 5'5" [...] but had more that day. While at [employer] began to feel very ill and became [...] 09/27/2014 pain, limb 07/11/2014 follow up 05/23/2014 [facility] fwup high blood pressure 03/20/2014 injection(s) 12/21/2013 [...] 06/09/2009 Encounters Encounter Performer Location Codes Date ([id number]) OFFICE/OUTPATIENT VISIT EST Diagnosis: Essential hypertension[ICD10: I10] Diagnosis: Palpitations[ICD10: R00.2] Diagnosis: Stress reaction[ICD10: F43.0] Vikki GUAMAN [employer] CPT-4: 43643 03/13/2019 ([id number]) NURSE/OUTPATIENT VISIT EST Diagnosis: Mixed hyperlipidemia[ICD10: E78.2] Vikki GUAMAN [employer] CPT-4: 56348 01/23/2019 ([id number]) NURSE/OUTPATIENT VISIT EST Diagnosis: FLU VACCINE[ICD10: Z23] Vikki BALL [employer] CPT-4: 86512 12/26/2018 ([id number]) NURSE/OUTPATIENT VISIT EST Diagnosis: Chronic kidney disease, stage 1[ICD10: N18.1] Vikki GUAMAN [employer] CPT-4: 10739 12/15/2018 ([id number]) OFFICE/OUTPATIENT VISIT EST Diagnosis: Acute serous otitis media, left ear[ICD10: H65.02] Jennifer GUAMAN [employer] CPT-4: 28490 11/07/2018 ([id number]) OFFICE/OUTPATIENT VISIT EST Diagnosis: Essential (primary) hypertension[ICD10: I10] Diagnosis: 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] Diagnosis: Hypoglycemia, unspecified[ICD10: E16.2] Diagnosis: Other fatigue[ICD10: R53.83] Diagnosis: Urinary tract infection, site not specified[ICD10: N39.0] Vikki GUAMAN [employer] CPT-4: 84041 08/14/2018 ([id number]) OFFICE/OUTPATIENT VISIT EST Diagnosis: Essential (primary) hypertension[ICD10: I10] Diagnosis: Gastro-esophageal reflux disease without esophagitis[ICD10: K21.9] Diagnosis: Urinary tract infection, site not specified[ICD10: N39.0] Vikki GUAMAN DO [facility] CPT-4: 16991 05/10/2018 ([id number]) OFFICE/OUTPATIENT VISIT EST Diagnosis: Gastro-esophageal reflux disease without esophagitis[ICD10: K21.9] Diagnosis: Epigastric pain[ICD10: R10.13] Vikki GUAMAN DO [facility] CPT-4: 96818 02/14/2018 ([id number]) OFFICE/OUTPATIENT VISIT EST Diagnosis: 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] Diagnosis: Essential (primary) hypertension[ICD10: I10] Diagnosis: Generalized anxiety disorder[ICD10: F41.1] Diagnosis: Gastro-esophageal reflux disease without esophagitis[ICD10: K21.9] Vikki GUAMAN DO [facility] CPT-4: 53236 01/10/2018 OFFICE/OUTPATIENT VISIT EST Diagnosis: Gastro-esophageal reflux disease without esophagitis[ICD10: K21.9] Diagnosis: Palpitations[ICD10: R00.2] Diagnosis: Urinary tract infection, site not specified[ICD10: N39.0] Diagnosis: Generalized anxiety disorder[ICD10: F41.1] Vikki GUAMAN [employer] [facility] CPT-4: 00756 12/06/2017 ([id number]) NURSE/OUTPATIENT VISIT EST Diagnosis: 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] Diagnosis: Hypoglycemia, unspecified[ICD10: E16.2] Diagnosis: Dizziness and giddiness[ICD10: R42] Diagnosis: Occlusion and stenosis of bilateral carotid arteries[ICD10: I65.23] Vikki GUAMAN DO [facility] CPT-4: 65076 11/30/2017 OFFICE/OUTPATIENT VISIT EST Diagnosis: Epigastric pain[ICD10: R10.13] Diagnosis: Generalized anxiety disorder[ICD10: F41.1] Diagnosis: FLU VACCINE[ICD10: Z23] Vikki BALL [employer] [facility] CPT-4: 53833 11/22/2017 ([id number]) OFFICE/OUTPATIENT VISIT EST Diagnosis: Essential (primary) hypertension[ICD10: I10] Diagnosis: Hypoglycemia, unspecified[ICD10: E16.2] Diagnosis: Gastro-esophageal reflux disease without esophagitis[ICD10: K21.9] Vikki Ciscobhavya PIKE Alyssa GUAMAN DO [facility] CPT-4: 06344 10/20/2017 ([id number]) OFFICE/OUTPATIENT VISIT EST Diagnosis: Dizziness and giddiness[ICD10: R42] Jennifer GUAMAN DO [facility] CPT-4: 33929 09/27/2017 ([id number]) OFFICE/OUTPATIENT VISIT EST Diagnosis: Cervicalgia[ICD10: M54.2] Diagnosis: Other spondylosis with radiculopathy, cervical region[ICD10: M47.22] Vikki Ciscobhavya PIKE AlejandraSujata GLENIS CHIN [facility] CPT-4: 13816 08/16/2017 ([id number]) OFFICE/OUTPATIENT VISIT EST Diagnosis: Hypoglycemia, unspecified[ICD10: E16.2] Diagnosis: Other spondylosis with radiculopathy, cervical region[ICD10: M47.22] Diagnosis: Vertigo of central origin, 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] Diagnosis: 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] Vikki iCscofunmilayosakshi CAIOAKUA ALEXNE AlejandraSujata GLENIS [employer] [facility] CPT-4: 32953 07/07/2017 ([id number]) OFFICE/OUTPATIENT VISIT EST Diagnosis: Benign paroxysmal vertigo, bilateral[ICD10: H81.13] Diagnosis: Otalgia, bilateral[ICD10: H92.03] Jennifer GUAMAN [employer] [facility] CPT-4: 84718 05/30/2017 ([id number]) OFFICE/OUTPATIENT VISIT EST Diagnosis: Low back pain[ICD10: M54.5] Diagnosis: Radiculopathy, lumbosacral region[ICD10: M54.17] Diagnosis: Left lower quadrant pain[ICD10: R10.32] Vikki Shah GLENIS [employer] [facility] CPT-4: 20811 04/18/2017 ([id number]) OFFICE/OUTPATIENT VISIT EST Diagnosis: FLU VACCINE[ICD10: Z23] Vikki PIKE AlejandraSujata [facility] CPT-4: 24018 12/10/2016 ([id number]) OFFICE/OUTPATIENT VISIT EST Diagnosis: Mixed hyperlipidemia[ICD10: E78.2] Diagnosis: Essential (primary) hypertension[ICD10: I10] Diagnosis: 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] Diagnosis: Impaired fasting glucose[ICD10: R73.01] Diagnosis: Other fatigue[ICD10: R53.83] [facility] CPT[facility]: 94030 11/01/2016 ([id number]) OFFICE/OUTPATIENT VISIT EST Diagnosis: Pain in thoracic spine[ICD10: M54.6] Diagnosis: Other intervertebral disc degeneration, 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] [facility] CPT[facility]: 40515 10/25/2016 ([id number]) OFFICE/OUTPATIENT VISIT EST Diagnosis: Left lower quadrant pain[ICD10: R10.32] Diagnosis: Low back pain[ICD10: M54.5] Vikki RUBI [facility] CPT-4: 37702 09/20/2016 ([id number]) OFFICE/OUTPATIENT VISIT EST Diagnosis: Mixed hyperlipidemia[ICD10: E78.2] Diagnosis: Essential (primary) hypertension[ICD10: I10] Diagnosis: Hypoglycemia, unspecified[ICD10: E16.2] [facility] CPT[facility]: 55233 05/13/2016 ([id number]) OFFICE/OUTPATIENT VISIT EST Diagnosis: Impaired fasting glucose[ICD10: R73.01] Diagnosis: Mastodynia[ICD10: N64.4] Diagnosis: Mixed hyperlipidemia[ICD10: E78.2] Diagnosis: Essential (primary) hypertension[ICD10: I10] Diagnosis: Other fatigue[ICD10: R53.83] [facility] CPT[facility]: 39985 05/12/2016 ([id number]) OFFICE/OUTPATIENT VISIT EST Diagnosis: Acute upper respiratory infection, unspecified[ICD10: J06.9] Yue Moya VIKKI [facility] CPT-[facility]: 06679 03/18/2016 ([id number]) OFFICE/OUTPATIENT VISIT EST Diagnosis: Acute mastoiditis without complications, right ear[ICD10: H70.001] Vikki GUAMAN DO [facility] CPT-4: 19772 02/06/2016 ([id number]) OFFICE/OUTPATIENT VISIT EST Diagnosis: FLU VACCINE[ICD10: Z23] Vikki BALL DO [facility] CPT-4: 26944 12/12/2015 ([id number]) OFFICE/OUTPATIENT VISIT EST Diagnosis: Mixed hyperlipidemia[ICD10: E78.2] Diagnosis: Essential (primary) hypertension[ICD10: I10] Diagnosis: 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] Diagnosis: Impaired fasting glucose[ICD10: R73.01] Vikki GUAMAN DO [facility] CPT-4: 60630 11/25/2015 ([id number]) OFFICE/OUTPATIENT VISIT EST Diagnosis: Constipation, unspecified[ICD10: K59.00] Vikki GUAMAN DO [facility] CPT-4: 58451 08/26/2015 ([id number]) OFFICE/OUTPATIENT VISIT EST Diagnosis: Essential (primary) hypertension[ICD10: I10] Diagnosis: Mixed hyperlipidemia[ICD10: E78.2] Diagnosis: Chronic kidney disease, stage 1[ICD10: N18.1] Vikki GUAMAN DO [facility] CPT-4: 06925 05/21/2015 ([id number]) OFFICE/OUTPATIENT VISIT EST Diagnosis: Muscle weakness (generalized)[ICD10: M62.81] Diagnosis: Dizziness and giddiness[ICD10: R42] Diagnosis: Essential (primary) hypertension[ICD10: I10] Diagnosis: History of falling[ICD10: Z91.81] Vikki Ciscofunmilayosakshi ROMMELJEANNA GUAMAN DO [facility] CPT-4: 35298 02/19/2015 ([id number]) OFFICE/OUTPATIENT VISIT EST Diagnosis: FLU VACCINE[ICD10: Z23] Vikki CORTEZLINE Alyssa BALL DO [facility] CPT-4: 56874 12/20/2014 ([id number]) OFFICE/OUTPATIENT VISIT EST Diagnosis: Acute renal failure[ICD9: 584.9] Diagnosis: POLYURIA[ICD9: 788.42] Vikki CORTEZLINE Alyssa Rees [facility] CPT-4: 84875 11/19/2014 ([id number]) OFFICE/OUTPATIENT VISIT EST Diagnosis: HYPERLIPIDEMIA NEC/NOS[ICD9: 272.4] Diagnosis: HYPERTENSION[ICD9: 401.9] Diagnosis: CAD[ICD9: 414.00] Diagnosis: Hyperglycemia[ICD9: 790.29] Diagnosis: MALAISE AND FATIGUE[ICD9: 780.79] Vikki Peckfunmilayosakshi KEARNEYROMMEL Deidra GUAMAN [employer] [facility] CPT-4: [address]16 11/14/2014 ([id number]) OFFICE/OUTPATIENT VISIT EST Diagnosis: MALAISE AND FATIGUE[ICD9: 780.79] Diagnosis: HYPOGLYCEMIA[ICD9: 251.2] Diagnosis: Grieving[ICD9: 309.0] Diagnosis: ABDOMINAL PAIN[ICD9: 789.00] Vikki Ciscofunmilayosakshi CORTEZVIKKI AlejandraSujata [facility] CPT-4: 11927 11/13/2014 OFFICE/OUTPATIENT VISIT EST Diagnosis: CERUMEN IMPACTION[ICD9: 380.4] Diagnosis: EUSTACHIAN TUBE DYSFUNCTION[ICD9: 381.81] Jesseniasa Francis VIKKI Alyssa [facility] CPT-4: 44806 09/27/2014 ([id number]) OFFICE/OUTPATIENT VISIT EST Diagnosis: Leg pain[ICD9: 729.5] Diagnosis: SUPERFIC PHLEBITIS-LEG[ICD9: 451.0] Vikki NIÑO AlejandraSujata [facility] [employer] [facility] CPT-4: 04408 07/11/2014 ([id number]) OFFICE/OUTPATIENT VISIT EST Diagnosis: Thoracic back pain[ICD9: 724.1] Diagnosis: SPASM OF MUSCLE[ICD9: 728.85] Vikki Ciscofunmilayosakshi CORTEZVIKKI AlejandraSujata [facility] CHIN [facility] CPT-4: 26963 05/23/2014 ([id number]) OFFICE/OUTPATIENT VISIT EST Diagnosis: DIZZINESS/VERTIGO[ICD9: 780.4] Diagnosis: Benign positional vertigo[ICD9: 386.11] Diagnosis: HYPERTENSION[ICD9: 401.9] Diagnosis: Suspicious nevus[ICD9: 238.2] Vikki [facility] CPT-4: 48042 03/20/2014 ([id number]) OFFICE/OUTPATIENT VISIT EST Diagnosis: FLU VACCINE[ICD10: Z23] Vikki [facility] CPT-4: 62951 12/21/2013 OFFICE/OUTPATIENT VISIT EST Diagnosis: SINUSITIS, ACUTE[ICD9: 461.9] Diagnosis: EUSTACHIAN TUBE DYSFUNCTION[ICD9: 381.81] Jessenia [facility] CPT-4: 74687 10/17/2013 ([id number]) OFFICE/OUTPATIENT VISIT EST Diagnosis: DIZZINESS/VERTIGO[ICD9: 780.4] Diagnosis: HYPERTENSION[ICD9: 401.9] [facility] 11475 09/24/2013 ([id number]) OFFICE/OUTPATIENT VISIT EST Diagnosis: HYPERTENSION[ICD9: 401.9] Diagnosis: MALAISE AND FATIGUE[ICD9: 780.79] Diagnosis: SINUSITIS, ACUTE[ICD9: 461.9] Vikki [facility] CPT-4: 85848 05/31/2013 ([id number]) OFFICE/OUTPATIENT VISIT EST Diagnosis: HYPERLIPIDEMIA NEC/NOS[ICD9: 272.4] Diagnosis: HYPERTENSION[ICD9: 401.9] Diagnosis: B12 DEFIC ANEMIA NEC[ICD9: 281.1] Diagnosis: HYPOGLYCEMIA[ICD9: 251.2] Vikki [facility] CPT-4: 30772 03/28/2013 OFFICE/OUTPATIENT VISIT EST Diagnosis: COUGH[ICD9: 786.2] Jessenia [facility] CPT-4: 42459 03/26/2013 OFFICE/OUTPATIENT VISIT EST Diagnosis: COUGH[ICD9: 786.2] Diagnosis: URI, ACUTE[ICD9: 465.9] Jessenia [facility] CPT-4: 94949 12/19/2012 ([id number]) OFFICE/OUTPATIENT VISIT EST Diagnosis: HYPERTENSION[ICD9: 401.9] Diagnosis: CEPHALGIA[ICD9: 784.0] Diagnosis: ANXIETY STATE NOS[ICD9: 300.00] Diagnosis: FLU VACCINE[ICD9: V04.81] Vikki [facility] CPT-4: 00054 11/27/2012 ([id number]) OFFICE/OUTPATIENT VISIT EST Diagnosis: DIZZINESS/VERTIGO[ICD9: 780.4] Diagnosis: SINUSITIS, ACUTE[ICD9: 461.9] Diagnosis: Benign positional vertigo[ICD9: 386.11] Vikki KEELAWRENCE AlejandraSujata [facility]: 21780 10/04/2012 OFFICE/OUTPATIENT VISIT EST Diagnosis: OTITIS MEDIA NOS[ICD9: 382.9] Vikki CORTEZLINE AlejandraSujata [facility] CPT-[facility]: 77269 07/27/2012 OFFICE/OUTPATIENT VISIT EST Diagnosis: Perforation of ear drum[ICD9: 384.20] Diagnosis: SINUSITIS, ACUTE[ICD9: 461.9] Vikki CORTEZLINE AlejandraSujata [facility] CPT-[facility]: 63967 07/14/2012 ([id number]) OFFICE/OUTPATIENT VISIT EST Diagnosis: Mastalgia[ICD9: 611.71] Vikki RobertsSujata [facility] CPT-4: 12483 06/08/2012 ([id number]) OFFICE/OUTPATIENT VISIT EST Diagnosis: HYPERLIPIDEMIA NEC/NOS[ICD9: 272.4] Diagnosis: HYPERTENSION[ICD9: 401.9] Diagnosis: DIZZINESS/VERTIGO[ICD9: 780.4] Diagnosis: Hyperglycemia[ICD9: 790.29] Diagnosis: MALAISE AND FATIGUE[ICD9: 780.79] Vikki Ciscobhavya Conde AlejandraSujata [facility] CPT-[facility]: 93946 02/23/2012 ([id number]) OFFICE/OUTPATIENT VISIT EST Diagnosis: EUSTACHIAN TUBE DYSFUNCTION[ICD9: 381.81] Diagnosis: DIZZINESS/VERTIGO[ICD9: 780.4] Diagnosis: ABDOMINAL PAIN[ICD9: 789.00] Diagnosis: GERD[ICD9: 530.81] Diagnosis: CERUMEN IMPACTION[ICD9: 380.4] Vikki [facility] CPT-4: 90129 02/22/2012 OFFICE/OUTPATIENT VISIT EST Diagnosis: ABDOMINAL PAIN[ICD9: 789.00] Diagnosis: DYSPEPSIA[ICD9: 536.8] Vikki [facility] CPT-4: 24884 12/28/2011 ([id number]) OFFICE/OUTPATIENT VISIT EST Diagnosis: ABDOMINAL PAIN[ICD9: 789.00] Diagnosis: DYSPEPSIA[ICD9: 536.8] Diagnosis: IBS[ICD9: 564.1] Vikki [facility] CPT - 4: 01842 12/15/2011 OFFICE/OUTPATIENT VISIT EST Diagnosis: DIZZINESS/VERTIGO[ICD9: 780.4] Diagnosis: HYPOGLYCEMIA[ICD9: 251.2] Vikki [facility] CPT-4: 04966 09/21/2011 ([id number]) OFFICE/OUTPATIENT VISIT EST Diagnosis: URINARY TRACT INFECTION[ICD9: 599.0] Vikki [facility] CPT-4: 94112 09/16/2011 ([id number]) OFFICE/OUTPATIENT VISIT EST Diagnosis: HYPERLIPIDEMIA NEC/NOS[ICD9: 272.4] Diagnosis: HYPERTENSION[ICD9: 401.9] Diagnosis: MALAISE AND FATIGUE[ICD9: 780.79] Diagnosis: DIZZINESS/VERTIGO[ICD9: 780.4] Vikki [facility] CPT-4: 48986 09/15/2011 ([id number]) OFFICE/OUTPATIENT VISIT EST Diagnosis: DIZZINESS/VERTIGO[ICD9: 780.4] Diagnosis: MALAISE AND FATIGUE[ICD9: 780.79] Diagnosis: HYPERTENSION[ICD9: 401.9] Vikki [facility] CPT-4: 47406 09/13/2011 OFFICE/OUTPATIENT VISIT EST Diagnosis: LUMB/LUMBOSAC DISC DEGEN[ICD9: 722.52] Diagnosis: Radiculopathy of leg[ICD9: 724.4] Diagnosis: 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] Diagnosis: SPINAL ENTHESOPATHY[ICD9: 720.1] Vikki [facility] CPT-4: 61000 08/16/2011 ([id number]) OFFICE/OUTPATIENT VISIT EST Diagnosis: PAIN, LOWER BACK[ICD9: 724.2] Diagnosis: SPASM OF MUSCLE[ICD9: 728.85] Diagnosis: SCIATICA[ICD9: 724.3] Diagnosis: Lumbar degenerative disc disease[ICD9: 722.52] Vikki [facility] CPT-4: 43046 08/03/2011 ([id number]) OFFICE/OUTPATIENT VISIT EST Diagnosis: PAIN IN THORACIC SPINE[ICD9: 724.1] Diagnosis: SPASM OF MUSCLE[ICD9: 728.85] Vikki [facility] CPT-4: 83114 07/26/2011 ([id number]) OFFICE/OUTPATIENT VISIT EST Diagnosis: PAIN, LOWER BACK[ICD9: 724.2] Diagnosis: SPASM OF MUSCLE[ICD9: 728.85] Diagnosis: Sacroiliac dysfunction[ICD9: 739.4] Diagnosis: Lumbar degenerative disc disease[ICD9: 722.52] Vikki [facility] CPT-4: 95106 06/28/2011 OFFICE/OUTPATIENT VISIT EST Diagnosis: MALAISE AND FATIGUE[ICD9: 780.79] Diagnosis: HYPOTENSION[ICD9: 458.9] Diagnosis: CAD[ICD9: 414.00] Vikki [facility] CPT-4: 26058 03/31/2011 OFFICE/OUTPATIENT VISIT EST Diagnosis: SINUSITIS, ACUTE[ICD9: 461.9] Diagnosis: PHARYNGITIS, ACUTE[ICD9: 462] Diagnosis: CERUMEN IMPACTION[ICD9: 380.4] Vikki [facility] CPT-4: 94239 02/11/2011 OFFICE/OUTPATIENT VISIT EST Diagnosis: PAIN IN THORACIC SPINE[ICD9: 724.1] Diagnosis: GERD[ICD9: 530.81] Diagnosis: DIZZINESS/VERTIGO[ICD9: 780.4] Vikki [facility] CPT-4: 62258 10/15/2010 OFFICE/OUTPATIENT VISIT EST Vikki [facility] CPT- 4: 45798 09/29/2010 ([id number]) OFFICE/OUTPATIENT VISIT EST Vikki PATHAK SSujata [facility] CPT-4: 81894 07/02/2010 ([id number]) OFFICE/OUTPATIENT VISIT, EST Diagnosis: PAIN, LOWER BACK[ICD9: 724.2] Vikki PIKE SSujata [facility] CPT-4: 95589 04/06/2010 ([id number]) OFFICE/OUTPATIENT VISIT, EST Vikki CRISOSTOMO S. [facility] CPT-4: 48445 04/01/2010 ([id number]) OFFICE/OUTPATIENT VISIT, EST Vikki [facility] CPT-4: 06596 01/22/2010 ([id number]) OFFICE/OUTPATIENT VISIT, EST Vikki [facility] CPT-4: 69763 12/02/2009 ([id number]) OFFICE/OUTPATIENT VISIT, EST Vikki [facility] CPT-4: 82767 10/21/2009 ([id number]) OFFICE/OUTPATIENT VISIT, EST Vikki [facility] CPT-4: 91916 09/10/2009 ([id number]) OFFICE/OUTPATIENT VISIT, EST Vikki [facility] CPT-4: 61712 08/11/2009 ([id number]) OFFICE/OUTPATIENT VISIT, EST Vikki [facility] CPT-4: 22052 06/09/2009 Plan of Care Planned Activity Notes Codes Status Date Visit Diagnosis Plan: Essential hypertension Discussio n: Increase metoprolol to 25mg q AM and 50mg po q pM Recheck 1 week ICD-9 : 401.9 ICD-10 : I10 03/13/2019 Visit Diagnosis Plan: Palpitations Discussion: Check C BC, CMP, TSH ICD-9 : 785.1 ICD-10 : R00.2 03/13/2019 Patient Education: metoprolol tartrate- [employer] [facility] [id number] [email or web address]/samplemd/resources/getResource/[email or web address] Completed 03/13/2019 Care Plan: X-RAY EXAM NECK SPINE 4/5VWS LOINC : 66600-8 Pending 03/13/2019 Care Plan: X-RAY EXAM THORAC SPINE4/>VW LOINC : 92055-6 Pending 03/13/2019 Appointment: Vikki Guaman WPtel: [address] [place] [address] LAB 01/23/2019 Appointment: Vikki Guaman WPtel: [address] [place] [address] INJECTION 12/26/2018 Patient Education: INFLUENZA VACCINE [facility] Completed 12/26/2018 Appointment: Vikki Guaman WPtel: [address] [place] [address] LAB 12/15/2018 Visit Diagnosis Plan: Acute serous [...] ICD-10 : H65.02 11/07/2018 Appointment: Jennifer Rosario [address] [place] [address] ACUTE ILLNESS 11/07/2018 Visit Diagnosis Plan: Other [...] N39.0 08/14/2018 Appointment: Vikki Guaman WPtel: [address] [place], [place] [phone] [place] FOLLOW UP 08/14/2018 Visit Diagnosis Plan: [...] I10 05/10/2018 Appointment: Vikki Guaman WPtel: [address] [place], [place] [phone] [place] FOLLOW UP 05/10/2018 Patient Education: metoprolol tartrate- [employer] [facility] [id number] [email or web address]/samplemd/resources/getResource/61/[email or web address] Completed 05/10/2018 Appointment: Vikki Guaman WPtel: [address] [place], [place] [phone] [place] CANCELED 04/21/2018 Visit Diagnosis Plan: Gastro-esophageal reflux disease without esophagitis Discussion: Continue protonix and carafate Proceed with updated EGD ICD-9 : 530.81 ICD-10 : K21.9 02/14/2018 Visit Diagnosis Plan: Epigastric pain Discussion: [facility] k CT abdomen/pelvis due to ongoing abdominal pain ICD-9 : 789.06 ICD-10 : R10.13 02/14/2018 Appointment: Vikki Guaman WPtel: [address] [place], [place] [phone] [place] FOLLOW UP 02/14/2018 Care Plan: CT PELVIS W/O DYE LOINC : 361 08-9 Pending 02/14/2018 Care Plan: CT ABDOMEN W/O DYE LOINC : 36 103-0 Pending 02/14/2018 Care Plan: Referral Order SNOMED-CT : 30 [id number] Pending 02/14/2018 Visit Diagnosis Plan: 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 [id number] [facility] 01/10/2018 Visit Diagnosis Plan: [...] N39.0 12/06/2017 Appointment: Vikki Guaman WPtel: [address] [place], [place] [phone] FOLLOW UP 12/06/2017 Patient Education: Patient Medication Summary Completed 12/06/2017 Appointment: Vikki Guaman WPtel: [address] [place], [place] [phone] LAB 11/30/2017 Patient Education: Patient Medication Summary [...] : R10.13 11/22/2017 Appointment: Vikki Guaman WPtel: [address] [place] [address] FOLLOW UP 11/22/2017 Patient Education: Patient Medication [...] : E16.2 10/20/2017 Appointment: Vikki Guaman WPtel: [address] [place] [address] ACUTE ILLNESS 10/20/2017 Patient Education: Patient Medication Summary Completed 10/20/2017 Visit Diagnosis Plan: Dizziness and giddiness Discussi on: blood work to be completed in office including cmp, cbc, troponin to rule out glucose intolerance, infection, dehydration. instructed patient that she needs to see her lean leader sooner than oct and patient requested we contact dr. brown's office. will have front office make appt. patient has carotid doppler annually. ICD-9 : 780.4 ICD-10 : R42 09/27/2017 Appointment: Jennifer Rosario [address] ACUTE ILLNESS 09/27/2017 Patient Education: Patient Medication Summary Completed 09/27/2017 Visit Diagnosis Plan: Cervicalgia Discussion: Complete course of PT since symptoms improved Continue stretching exercises Notify if symptoms return or worsen ICD-9 : 723.1 ICD-10 : M54.2 08/16/2017 Appointment: Vikki Guaman WPtel: [facility] [address] FOLLOW UP 08/16/2017 Patient Education: Patient [...] : E16.2 07/07/2017 Appointment: Vikki Guaman WPtel: [facility] [place] [phone] 07/07/2017 Patient Education: Patient Medication Summary Completed 07/07/2017 Care Plan: MRI NECK SPINE W/O DYE LOINC : 66522-2 Pending 07/07/2017 Visit Diagnosis Plan: Benign paroxysmal [...] ICD-10 : H92.03 05/30/2017 Appointment: Jennifer Rosario [address] [place] [address] ACUTE ILLNESS 05/30/2017 Patient Education: Patient Medication [...] : R10.32 04/18/2017 Appointment: Vikki Guaman WPtel: [address] [place] [address] ACUTE ILLNESS 04/18/2017 Patient Education: Patient Medication Summary Completed 04/18/2017 Appointment: Vikki Guaman WPtel: [address] [place] [address] US INJECTION 12/10/2016 Patient Education: Patient Medication Summary Completed 12/10/2016 Appointment: Vikki Guaman WPtel: [address] [place] [address] US LAB 11/01/2016 Patient Education: Patient Medication [...] : M54.6 10/25/2016 Appointment: Vikki Guaman WPtel: [address] [place] [address] FOLLOW UP 10/25/2016 Patient Education: Patient Medication [...] : M54.5 09/20/2016 Appointment: Vikki Guaman WPtel: [address] [place] [address] ACUTE ILLNESS 09/20/2016 Patient Education: Patient Medication Summary Completed 09/20/2016 Appointment: Vikki Guaman WPtel: [address] [place], [place] [phone] [place] LAB 05/13/2016 Patient Education: Patient Medication [...] R53.83 05/12/2016 Appointment: Vikki Guaman WPtel: [address] [place], [place] [phone] [place] 3/ confirmed `sl ACUTE ILLNESS 05/12/2016 Patient Education: Patient Medication Summary Completed 05/12/2016 Care Plan: MAMMOGRAM SCREENING LOINC : 2 4547-5 Pending 05/12/2016 Visit Diagnosis Plan: Acute upper respiratory infectio n, unspecified Discussion: Exam is reassuring Likely viral illness Supportive care reviewed and encouraged Follow up PRN ICD-9 : 465.9 ICD-10 : J06.9 03/18/2016 Appointment: Yue Moya [address] [place] [address] ACUTE ILLNESS 03/18/2016 Patient Education: Patient Medication Summary Completed 03/18/2016 Visit Plan: Supportive care. Rest, Fluid s, Tylenol/Motrin prn fever or bodyaches. Notify if worsening symptoms. 02/06/2016 Appointment: Vikki Guaman WPtel: [address] [place] [address] ACUTE ILLNESS 02/06/2016 Patient Education: Patient Medication Summary Completed 02/06/2016 Appointment: Vikki Guaman WPtel: [address] [place] [address] INJECTION 12/12/2015 Patient Education: Patient Medication Summary Completed 12/12/2015 Appointment: Vikki Guaman WPtel: [address] [place] [address] LAB 11/25/2015 Patient Education: Patient Medication Summary Completed 11/25/2015 Visit Plan: Add miralax daily Use daily probiotic and metamucil and push fluids Notify if worsens/persists 08/26/2015 Appointment: Vikki Guaman WPtel: [address] [place] [address] 08/25/15 confirmed ~sl ACUTE ILLNESS 08/26/2015 Patient Education: Patient Medication Summary Completed 08/26/2015 Visit Plan: No NSAIDs Kidney function di scussed Discussed hydration Monitor lab every 4months so will check CMP, HbA1C next month 05/21/2015 Appointment: Vikki Guaman WPtel: [address] [place] [address] 05/19 confirmed ~sl ACUTE ILLNESS 05/21/2015 Patient Education: Patient Medication Summary Completed 05/21/2015 Visit Plan: Vestibular exercises Refill flonase Strict low Na diet--discussed that needs to read labels Rx for walker with chair given due to muscle weakness/unsteadiness Has carotids and abdominal aorta and legs checked in March Check Chem 7 02/19/2015 Appointment: Vikki Guaman WPtel: [address] [place] [address] 02/18/15 appt confirmed cn FOLLOW UP 02/19 Patient Education: Patient Medication Summary Completed 02/19/2015 Patient Education: Vertigo Completed 1 04/22/2014 Appointment: Vikki Guaman WPtel: [address] [place] [address] US INJECTION 12/20/2014 Patient Education: Patient Medication Summary Completed 12/20/2014 Appointment: Vikki Guaman WPtel: [address] [place] [address] UA 11/19/2014 Patient Education: Patient Medication Summary Completed 11/19/2014 Referral: Edy Cheek WPtel: #1 [facility] [address] Referral Completed 11/18/2014 Appointment: Vikki Guaman WPtel: [address] [place] [address] LAB 11/14/2014 Patient Education: Patient Medication Summary Completed 11/14/2014 Visit Plan: Check CMP, CBC, TSH, Free T4 , B12, Lipids, HbA1C Discussed 6 small meals a day each with protein Would likely benefit from antidepressant Update colonoscopy 11/13/2014 Appointment: Vikki Guaman WPtel: [address] [place], [place] [phone] 11/12/14 confirmed ACUTE ILLNESS 11/13/2014 Patient Education: Patient Medication Summary Completed 11/13/2014 Visit Plan: Cerumen flush with warm wate r and peroxide - good results Resume Nasonex nasal spray daily Recommended Debrox earwax removal drops 09/27/2014 Appointment: Jessenia Francis WPtel: [address] [place], [place] [phone] ACUTE ILLNESS 09/27/2014 Patient Education: Patient Medication Summary Completed 09/27/2014 Visit Plan: Continue aspirin daily Add m eloxicam for 1week [employer] Call on Tuesday07/11/2014 Appointment: Vikki Guaman WPtel: [address] [place] [address] ACUTE ILLNESS 07/11/2014 Patient Education: Patient Medication Summary Completed 07/11/2014 Visit Plan: Been using baclofen at [facility] and has helped some PT for next 2-4weeks 05/23/2014 Appointment: Vikki Guaman WPtel: [address] [place] [address] Follow Up 05/23/2014 Patient Education: Patient Medication Summary Completed 05/23/2014 Appointment: Vikki Guaman WPtel: [address] [place] [address] LAB 05/10/2014 Appointment: Vikki Guaman WPtel: [address] [place] [address] feeling better, weather - FOLLOW UP 04/07 Referral: Edy Cheek WPtel: 1 [facility] Referral Appointment Requested 04/03/2014 Visit Plan: Continue exercise and curren t meds See surgery for removal of right arm lesion 03/20/2014 Appointment: Vikki Guaman WPtel: [address] [place], [place] [phone] FOLLOW UP 03/20/2014 Patient Education: Patient Medication Summary Completed 03/20/2014 Appointment: Vikki Guaman WPtel: [address] [place], [place] [phone] [place] INJECTION 12/21/2013 Patient Education: Patient Medication Summary Completed 12/21/2013 Appointment: Jessenia Francis WPtel: [address] [place], [place] [phone] ACUTE ILLNESS 10/17/2013 Patient Education: Patient Medication Summary Completed 10/17/2013 Visit Plan: Discussed that likely lumbar etiology for leg weakness Will change amlodopine to low dose dyazide and see if helps legs and inner ear 09/24/2013 Appointment: Vikki Guaman WPtel: [address] [place] [address] FOLLOW UP 09/24/2013 Patient Education: Patient Medication Summary Completed 09/24/2013 Visit Plan: Ceftin and continue claritin /flonase Decrease amlodopine to 2.5mg q HS until fwup with Card due to weakness 05/31/2013 Appointment: Vikki Guaman WPtel: [address] [place] [address] ACUTE ILLNESS 05/31/2013 Patient Education: Patient Medication Summary Completed 05/31/2013 Appointment: Vikki Guaman WPtel: [address] [place] [address] LAB 03/28/2013 Patient Education: Patient Medication Summary Completed 03/28/2013 Appointment: Jessenia Francis WPtel: [address] [place] [address] ACUTE ILLNESS 03/26/2013 Patient Education: Patient Medication Summary Completed 03/26/2013 Visit Plan: Supportive care. Rest, Fluid s, Tylenol prn fever or bodyaches. Notify if worsening symptoms. Ceftin 12/19/2012 Appointment: Jessenia Francis WPtel: [address] [place] [address] ACUTE ILLNESS 12/19/2012 Patient Education: Patient Medication Summary Completed 12/19/2012 Appointment: Vikki Guaman WPtel: [address] [place] [address] BP CHECK 12/04/2012 Patient Education: Patient Medication Summary Completed 12/04/2012 Appointment: Vikki Guaman WPtel: [address] [place], [place] [phone] ER Follow UP 11/27/2012 Patient Education: Patient Medication Summary Completed 11/27/2012 Visit Plan: Restart flonase BID Use mecl izine 25mg q HS Vestibular exercises Claritin 10mg q AM See ENT if doesn't resolve 10/04/2012 Appointment: Vikki Guaman WPtel: [address] [place] [address] ACUTE ILLNESS 10/04/2012 Patient Education: Patient Medication Summary Completed 10/04/2012 Visit Plan: Will continue to observe 07/27/2012 Appointment: Vikki Guaman WPtel: [address] [place] [address] FOLLOW UP 07/27/2012 Patient Education: Patient Medication [...] ear recheck. 07/14/2012 Appointment: Evelyn Santos WPtel: [address] [place] [address] ACUTE ILLNESS 07/14/2012 Patient Education: Patient Medication Summary Completed 07/14/2012 Visit Plan: Decrease caffeine intake Kristin ck Bilateral Mammogram with US of left breast 06/08/2012 Appointment: Vikki Guaman WPtel: [address] [place], [place] [phone] ACUTE ILLNESS 06/08/2012 Patient Education: Patient Medication Summary Completed 06/08/2012 Appointment: Alisia Campbell WPtel: [address] [place], [place] [phone] appt scheduled 04/06 ACUTE ILLNESS 04/10/2012 Appointment: Vikki Guaman WPtel: [address] [place], [place] [phone] [place] LAB 02/23/2012 Patient Education: Patient Medication Summary Completed 02/23/2012 Visit Plan: Continue off carafate and se e how does Continue probiotic Add Vestibular exercises and use meclizine prn Continue Nasonex Check fasting lab including CMP, Lipids, CBC, TSH, Free T4, HbA1C 02/22/2012 Appointment: Vikki Guamantel: [address] [place], [place] [phone] FOLLOW UP 02/22/2012 Patient Education: Patient Medication Summary Completed 02/22/2012 Visit Plan: Continue carafate for 4more weeks at current dose then decrease to BID for 2wks then q HS 12/28/2011 Appointment: Vikki Guaman WPtel: [address] [place], [place] [phone] FOLLOW UP 12/28/2011 Patient Education: Patient Medication Summary Completed 12/28/2011 Visit Plan: Continue omeprazole Add Judi fate 1gm po q AC Add daily probiotic 12/15/2011 Appointment: Vikki Guaman WPtel: [address] [place] [address] ACUTE ILLNESS 12/15/2011 Patient Education: Patient Medication Summary Completed 12/15/2011 Appointment: Vikki Guamantel: [address] [place], [place] [phone] INJECTION 12/02/2011 Patient Education: Patient Medication Summary Completed 12/02/2011 Visit Plan: Diabetic Diet Accuchecks BID alternating times Hold onglyza and Januvia for now and continue diet and exercise and weight loss and moniter BS Discussed hypoglycemia and snack of peanut butter and crackers with juice or milk 09/21/2011 Appointment: Vikki Guamantel: [address] [place], [place] [phone] WORK IN 09/21/2011 Patient Education: Patient Medication Summary Completed 09/21/2011 Appointment: Vikki Guaman WPtel: [address] [place] [address] UA 09/16/2011 Patient Education: Patient Medication Summary Completed 09/16/2011 Appointment: Vikki Guamantel: [address] [place] [address] LAB 09/15/2011 Patient Education: Patient Medication Summary Completed 09/15/2011 Appointment: Vikki Guaman WPtel: [address] [place] [address] ACUTE ILLNESS 09/13/2011 Patient Education: Patient Medication Summary Completed 09/13/2011 Visit Plan: Injection to Right SI joint as above Pt will call in 3 days on pain Has PT starting in 2wks. 08/16/2011 Appointment: Vikki Guaman WPtel: [address] [place] [address] ACUTE ILLNESS 08/16/2011 Patient Education: Patient Medication Summary Completed 08/16/2011 Visit Plan: OMT done Start PT May need u pdated MRI if need to consider epidural Prednisone 08/03/2011 Appointment: Vikki Guaman WPtel: [address] [place] [address] OMT 08/03/2011 Patient Education: Patient Medication Summary Completed 08/03/2011 Visit Plan: Flexeril and Vimovo OMT done Daily stretches 07/26/2011 Appointment: Vikki Guaman WPtel: [address] [place] [address] ACUTE ILLNESS 07/26/2011 Patient Education: Patient Medication Summary Completed 07/26/2011 Visit Plan: OMT done Daily stretches Roque st heat or biofreeze Right SI joint injection Call in 1week Vimovo BID 06/28/2011 Appointment: Vikki Guaman WPtel: [address] [place] [address] ACUTE ILLNESS 06/28/2011 Patient Education: Patient Medication Summary Completed 06/28/2011 Appointment: Vikki Guaman WPtel: [address] [place], [place] [phone] US LAB 04/01/2011 Patient Education: Patient Medication Summary Completed 04/01/2011 Visit Plan: Decrease amlodopine to 1.25m g daily Schedule with Cardiology Fasting lab in AM 03/31/2011 Appointment: Vikki Guamantel: [address] [place], [place] [phone] ACUTE ILLNESS 03/31/2011 Patient Education: Patient Medication Summary Completed 03/31/2011 Visit Plan: Saline nasal flushes prn. Ty lenol/Motrin prn headache. Notify if persists/symptoms worsening. Cerumen removal from ears as above 02/11/2011 Appointment: Vikki Guaman WPtel: [address] [place], [place] [phone] ACUTE ILLNESS 02/11/2011 Patient Education: Patient Medication Summary Completed 02/11/2011 Appointment: Vikki Guaman WPtel: [address] [place], [place] [phone] US INJECTION 12/09/2010 Patient Education: Patient Medication Summary Completed 12/09/2010 Visit Plan: Continue vimovo for 1more we ek Increase Omeprazole to BID for 1mo then resume QD if stomach improved Vestibular exercises with meclizine q HS for next week 10/15/2010 Appointment: Vikki Guaman WPtel: [address] [place], [place] [phone] FOLLOW UP 10/15/2010 Patient Education: Patient Medication Summary Completed 10/15/2010 Appointment: Vikki Guaman WPtel: [address] [place], [place] [phone] ACUTE ILLNESS 09/29/2010 Patient Education: Patient Medication Summary Completed 09/29/2010 Appointment: Vikki Guaman WPtel: [address] [place], [place] [phone] US LAB 07/06/2010 Patient Education: Patient Medication Summary Completed 07/06/2010 Visit Plan: Saline nasal flushes prn. Ty lenol/Motrin prn headache. Notify if persists/symptoms worsening. Add Veramyst Increase Omeprazole to 20mg po BID 07/02/2010 Appointment: Vikki Guaman WPtel: [address] [place] [address] ACUTE ILLNESS 07/02/2010 Patient Education: Patient Medication Summary Completed 07/02/2010 Appointment: Vikki Guaman WPtel: [address] [place] [address] FOLLOW UP 04/06/2010 Patient Education: Patient Medication Summary Completed 04/06/2010 Appointment: Vikki Guaman WPtel: [address] [place] [address] ACUTE ILLNESS 04/01/2010 Patient Education: Patient Medication Summary Completed 04/01/2010 Visit Plan: Nasocourt sample given. Pt. will notify if symptoms are worse on Tuesday. 01/22/2010 Appointment: Alisia Campbell WPtel: [address] [place] [address] ACUTE ILLNESS 01/22/2010 Patient Education: Patient Medication Summary Completed 01/22/2010 Appointment: Vikki Guaman WPtel: [address] [place] [address] US INJECTION 12/10/2009 Patient Education: Patient Medication Summary Completed 12/10/2009 Appointment: Vikki Guaman WPtel: [address] [place] [address] FOLLOW UP 12/02/2009 Patient Education: Patient Medication Summary Completed 12/02/2009 Patient Education: Lexapro Completed 0 12/02/2009 Visit Plan: May proceed with hiatal ryan ia repair per Card. so will contact Dr. Mariscal's office to proceed with surgery Trial of Lexapro 5mg QD plus use xanax prn 10/21/2009 Appointment: Vikki Guaman WPtel: [address] [place], [place] [phone] FOLLOW UP 10/21/2009 Patient Education: Patient Medication Summary Completed 10/21/2009 Visit Plan: B12 given Cont oral B12 and iron Fwup 1mo for B12 Proceed with hiatal hernia repair once card clearance 09/10/2009 Appointment: Vikki Guaman WPtel: [address] [place], [place] [phone] FOLLOW UP 09/10/2009 Patient Education: Patient Medication Summary Completed 09/10/2009 Appointment: Vikki Guaman WPtel: [address] [place], [place] [phone] FOLLOW UP 08/11/2009 Patient Education: Patient Medication Summary Completed 08/11/2009 Appointment: Vikki Guaman WPtel: [address] [place], [place] [phone] US LAB 06/10/2009 Patient Education: Patient Medication Summary Completed 06/10/2009 Visit Plan: Check fasting lab in AM--CMP ,Lipids, CBC, Vit D, TSH,FreeT4, B12 06/09/2009 Appointment: Vikki Guaman WPtel: [address] [place], [place] [phone] FOLLOW UP 06/09/2009 Patient Education: Patient Medication Summary Completed 06/09/2009 Referral: Edy Cheek WPtel: #1 [facility] Referral Appointment Requested Referral: Edy Cheek WPtel: #[address] Referral Initiated Instructions Comment . Supportive [...]
--- OUTSIDE RECORDS SUMMARY | 2019-04-25 20:37 | XMS REPORT | CCD ---
Author Author Evelyne Guaman D.O. 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 Name Role Phone Vikki Guaman D.O., PP Unavailable CCM Unavailable Summary Purpose Interface Exchange Insurance Providers Payer name Policy type / Coverage type Covered alliance party ID Effective Begin Date Effective End Date WPS MEDICARE PART B [place] Medicare Part B [id number] 2017 Unknown Aetna [facility] Medicare Part B [id number] Unknown Family history Father Diagnosis Age At Onset Heart disease Unknown Mother Diagnosis Age At Onset Heart disease Unknown Cancer Unknown Social History Social History Element Codes Description Effective Dates Tobacco history SNOMED CT: 473416628 Never smoker 09/29/2010 Marital status Unknown Single [...] R10.13 11/22/2017 Active 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: [...] Relief 50 mcg/actuation nasal spray,suspensi on RxNorm: 9435976 2 [place] Nasal every night at bedtime 03/13/2019 03/13/2019 Inactive simvastatin 40 mg tablet RxNorm: 753397 1 Tablet(s) PO QD 01/22/2019 04/21/2019 Active omeprazole 40 mg capsule,delayed release RxNorm: 233024 1 Capsu le(s) Oral QD 01/10/2019 07/08/2019 Active Xanax 0.25 mg tablet RxNorm: 630526 TAKE 1 TABLET BY MOUTH TWIC E DAILY 01/02/2019 No Stop Date Active omeprazole 40 mg capsule,delayed release RxNorm: 135958 1 Capsu le(s) PO QD 12/11/2018 01/09/2019 Inactive metoprolol tartrate 25 mg tablet RxNorm: 854325 1 Tablet(s) PO BID 11/20/2018 05/18/2019 Active omeprazole 40 mg capsule,delayed release RxNorm: 198163 1 Capsu le(s) PO QD 11/13/2018 12/10/2018 Inactive Flonase Allergy Relief 50 mcg/actuation nasal spray,suspensi on RxNorm: 2375999 2 [place] NASAL QHS 11/07/2018 03/12/2019 Inactive simvastatin 40 mg tablet RxNorm: 619330 1 Tablet(s) PO QD 10/23/2018 01/20/2019 Inactive simvastatin 40 mg tablet RxNorm: 028925 1 Tablet(s) PO QD 07/24/2018 10/21/2018 Inactive omeprazole 40 mg capsule,delayed release RxNorm: 915564 1 Capsu le(s) PO QD 07/13/2018 11/09/2018 Inactive simvastatin 40 mg tablet RxNorm: 860089 1 Tablet(s) PO QD 06/13/2018 07/12/2018 Inactive omeprazole 40 mg capsule,delayed release RxNorm: 739024 1 Capsu le(s) PO QD 06/13/2018 07/12/2018 Inactive Bactrim DS 800 mg-160 mg tablet RxNorm: 117109 1 Tablet(s) PO BID 0 05/12/2018 05/18/2018 Inactive Bactrim DS 800 mg-160 mg tablet RxNorm: 329566 1 Tablet(s) PO BID 0 05/12/2018 05/11/2018 Inactive Macrobid 100 mg capsule RxNorm: 650360 1 Capsule(s) PO BID 05/11/19 19 05/16/2018 Inactive metoprolol tartrate 25 mg tablet RxNorm: 007404 1 Tablet(s) PO BID 05/10/2018 11/05/2018 Inactive Xanax 0.25 mg tablet RxNorm: 915970 TAKE 1 TABLET BY MOUTH TWIC E DAILY 02/16/2018 01/01/2019 Inactive Xanax 0.25 mg tablet RxNorm: 080506 1 Tablet(s) PO BID 02/14/2018 Inactive Protonix 40 mg tablet,delayed release RxNorm: 326874 1 Tablet(s) PO BID for stomach--replaces omeprazole 01/10/2018 05/09/2018 Inactive Carafate 1 gram tablet RxNorm: 126299 1 Tablet(s) PO AC & HS 201705/09/2018 Inactive Xanax 0.25 mg tablet RxNorm: 719266 1 Tablet(s) PO BID 01/03/201812/2017 Inactive Bactrim DS 800 mg-160 mg tablet RxNorm: 133640 1 Tablet(s) PO BID 1 12/12/2017 Inactive Bactrim DS 800 mg-160 mg tablet RxNorm: 824985 1 Tablet(s) PO BID 1 12/07/2017 Inactive Carafate 1 gram tablet RxNorm: 731912 1 Tablet(s) PO AC & HS 201712/21/2017 Inactive Protonix 40 mg tablet,delayed release RxNorm: 307240 1 Tablet(s) PO BID for stomach--replaces omeprazole 11/22/2017 01/09/2018 Inactive Protonix 40 mg tablet,delayed release RxNorm: 440232 1 Tablet(s) PO BID for stomach--replaces omeprazole 10/20/2017 11/21/2017 Inactive fluticasone 50 mcg/actuation nasal spray,suspension RxNorm: 0225416 2 [place] NASAL QD to each nostril 07/07/2017 08/13/2018 Inactive Nasonex 50 mcg/actuation [place] RxNorm: 7591106 2 [place] NASAL 201707/07/2017 Inactive omeprazole 40 mg capsule,delayed release RxNorm: 433558 1 Capsu le(s) PO QD 04/18/2017 10/19/2017 Inactive simvastatin 40 mg tablet RxNorm: 828335 1 Tablet(s) PO QD TAKE 1 TABLET EVERY DAY 04/18/2017 04/12/2018 Inactive metoprolol tartrate 25 mg tablet RxNorm: 430359 1/2 Tablet(s) PO QD 04/18/2017 01/09/2018 Inactive simvastatin 40 mg tablet RxNorm: 847324 Tablet(s) TAKE 1 TABLET EVERY DAY 10/27/2016 04/17/2017 Inactive metoprolol tartrate 25 mg tablet RxNorm: 137427 1/2 Tablet(s) PO QD 09/20/2016 03/18/2017 Inactive Flonase 50 mcg/actuation nasal spray,suspension RxNorm: 1797 933 2 [place] NASAL BID 09/20/2016 04/17/2017 Inactive omeprazole 40 mg capsule,delayed release RxNorm: 527599 1 Capsu le(s) PO QD 09/08/2016 04/17/2017 Inactive metoprolol tartrate 25 mg tablet RxNorm: 639657 1/2 Tablet(s) PO QD 06/14/2016 09/19/2016 Inactive ciprofloxacin 0.2 % ear drops in a dropperette RxNorm: 30193 6 4 Drop(s) OTIC TID for 1 week 02/06/2016 05/11/2016 Inactive cefdinir 300 mg capsule RxNorm: 789460 2 Capsule(s) PO QD 02/06/2016 02/15/2016 Inactive omeprazole 40 mg capsule,delayed release RxNorm: 390005 TAKE 1 CAPSULE EVERY DAY 11/06/2015 09/08/2016 Inactive simvastatin 40 mg tablet RxNorm: 533087 TAKE 1 TABLET EVERY DAY 05/201510/27/2016 Inactive Flonase 50 mcg/actuation nasal spray,suspension RxNorm: 1797 933 2 [place] NASAL BID 02/19/2015 09/19/2016 Inactive cefuroxime axetil 250 mg tablet RxNorm: 625493 1 Tablet(s) PO BID 0 11/21/2014 11/20/2014 Inactive cefuroxime axetil 250 mg tablet RxNorm: 331030 1 Tablet(s) PO BID 0 11/21/2014 11/27/2014 Inactive omeprazole 40 mg capsule,delayed release RxNorm: 915677 1 Capsu le(s) PO QD 10/09/2014 01/05/2015 Inactive meloxicam 7.5 mg tablet RxNorm: 077287 1 Tablet(s) PO QD 07/11/2014 0 08/09/2014 Inactive loratadine 10 mg tablet RxNorm: 125206 1 Tablet(s) PO QAM for a llergies 10/17/2013 08/13/2018 Inactive Flonase 50 mcg/actuation nasal spray,suspension RxNorm: 8963 23 2 [place] NASAL BID 10/17/2013 02/18/2015 Inactive prednisone 20 mg tablet RxNorm: 400975 2 Tablet(s) PO BID 10/17/2013 10/21/2013 Inactive Dyazide 37.5 mg-25 mg capsule RxNorm: 179579 1 Capsule(s) PO QAM 10/16/2013 Inactive Ceftin 500 mg tablet RxNorm: 692015 1 Tablet(s) PO BID 05/31/201307/2013 Inactive Ceftin 500 mg tablet RxNorm: 464349 1 Tablet(s) PO BID 03/26/2013 Inactive simvastatin 40 mg tablet RxNorm: 988207 Tablet(s) PO TA KE ONE TABLET BY MOUTH EVERY DAY 03/26/2013 10/07/2015 Inactive metoprolol tartrate 25 mg tablet RxNorm: 537365 Tablet( s) PO TAKE ONE-HALF TABLET BY MOUTH EVERY DAY 03/26/2013 11/12/2014 Inactive Ceftin 500 mg tablet RxNorm: 467225 1 Tablet(s) PO BID 12/19/2012 Inactive loratadine 10 mg tablet RxNorm: 652202 1 Tablet(s) PO QAM for a llergies 10/04/2012 12/02/2012 Inactive omeprazole 20 mg capsule,delayed release RxNorm: 759912 Capsule(s) PO TAKE ONE CAPSULE BY MOUTH TWICE DAILY 08/09/2012 10/08/2014 Inactive omeprazole 20 mg capsule,delayed release RxNorm: 731596 1 Capsu le(s) PO BID 08/09/2012 05/09/2018 Inactive Augmentin 875 mg-125 mg tablet RxNorm: 311776 1 Tablet(s) PO Q12H 0 07/14/2012 07/23/2012 Inactive Floxin Otic Drops 1 bottle Drops RxNorm: 5 Drop(s) OTIC BID 07/20/2012 Inactive metoprolol tartrate 25 mg tablet RxNorm: 605496 Tablet( s) PO TAKE ONE-HALF TABLET BY MOUTH EVERY DAY 04/11/2012 03/25/2013 Inactive simvastatin 40 mg tablet RxNorm: 479460 Tablet(s) PO TA KE ONE TABLET BY MOUTH EVERY DAY 04/11/2012 03/25/2013 Inactive lancets RxNorm: Misc Miscellaneous USE ONE TO CH JEFFERY GLUCOSE EVERY DAY 04/04/2012 05/09/2018 Inactive Carafate 1 gram tablet RxNorm: 787315 1 Tablet(s) PO AC & HS 201111/12/2014 Inactive Flagyl 500 mg tablet RxNorm: 105070 1 Tablet(s) PO TID 12/15/2011 Inactive Carafate 1 gram tablet RxNorm: 432774 1 Tablet(s) PO AC & HS 201102/12/2012 Inactive One Touch Test strips RxNorm: Miscellaneous QD 09/21/2011 05/09/2018 Inactive one touch ultra mini test strips Protonix 40 mg Tab RxNorm: 499041 1 Tablet(s) PO QD 09/13/20112011 Inactive Protonix 40 mg Tab RxNorm: 934154 1 Tablet(s) PO QD 09/13/20112011 Inactive prednisone 20 mg Tab RxNorm: 864020 1 Tablet(s) PO BID 08/03/201106/2011 Inactive Flexeril 5 mg Tab RxNorm: 264601 1 Tablet(s) PO QHS for spasm 07/2508/24/2011 Inactive Flexeril 5 mg Tab RxNorm: 745468 1 Tablet(s) PO QHS for spasm 06/2707/25/2011 Inactive amlodipine 2.5 mg Tab RxNorm: 257640 1/2 Tablet(s) PO QD replac es 5mg dose 03/31/2011 06/27/2011 Inactive simvastatin 40 mg tablet RxNorm: 960788 1 Tablet(s) PO QD 03/31/2011 03/24/2012 Inactive metoprolol tartrate 25 mg tablet RxNorm: 696098 1/2 Tablet(s) PO QD 03/31/2011 03/24/2012 Inactive omeprazole 20 mg capsule,delayed release RxNorm: 241464 1 Capsu le(s) PO BID 03/31/2011 09/12/2011 Inactive cefdinir 300 mg Cap RxNorm: 568644 2 Capsule(s) PO QD 02/11/201102/04 Inactive simvastatin 40 mg Tab RxNorm: 793313 1 Tablet(s) PO QD 02/01/2011 Inactive metoprolol tartrate 25 mg Tab RxNorm: 316717 1/2 Tablet(s) PO QD 03/30/2011 Inactive metoprolol tartrate 25 mg Tab RxNorm: 562139 1/2 Tablet(s) PO QD 12/28/2010 Inactive meclizine 25 mg Tab RxNorm: 9185095 1 Tablet(s) PO QHS 10/15/201011/2010 Inactive for dizziness Ceftin 500 mg Tab RxNorm: 339136 1 Tablet(s) PO BID 07/02/20102010 Inactive omeprazole 20 mg Cap, Delayed Release RxNorm: 701984 1 Capsule( s) PO BID 07/02/2010 12/28/2010 Inactive simvastatin 40 mg Tab RxNorm: 638453 1 Tablet(s) PO QD 06/30/201007/2018 Inactive simvastatin 40 mg Tab RxNorm: 953896 1 Tablet(s) PO QD 06/30/2010 Inactive simvastatin 40 mg Tab RxNorm: 023935 1 Tablet(s) PO QD 02/25/2010 Inactive Tessalon Perles 100 mg Cap RxNorm: 178208 1 Capsule(s) PO Q6-8H 01/28/2010 Inactive cefdinir 300 mg Cap RxNorm: 937866 1 Capsule(s) PO BID 01/22/2010 Inactive Lexapro 10 mg Tab RxNorm: 097612 1 Tablet(s) PO QD 12/02/2009 010 Inactive Cipro 250 mg Tab RxNorm: 928993 1 Tablet(s) PO BID 12/02/2009 010 Inactive Wellbutrin XL 150 mg 24 hr Tab RxNorm: 693143 1 Tablet(s) PO QAM 08/07/2009 Inactive Fish Oil 1,000 mg Cap RxNorm: 1 Capsule(s) PO QD No Start Date Active Tylenol Extra Strength 500 mg tablet RxNorm: 480265 1/2 Tablet( s) PO as needed No Start Date Active nitroglycerin 0.4 mg sublingual tablet RxNorm: 843988 Tablet(s) SL as needed No Start Date Active Calcium with Vitamin D 600 mg (1,500 mg)-400 unit tablet RxN orm: 042996 1 Tablet(s) PO QD No Start Date Active Multivitamin & Mineral Formula Tab RxNorm: 1 Tablet(s) PO QD No St art Date Active vitamin B complex capsule RxNorm: 1 Capsule(s) PO QD No Start Date Active Aspirin 81 mg Tab RxNorm: 619241 1 Tablet(s) PO QD No Start Date Active isosorbide mononitrate ER 30 mg tablet,extended release 24 h r RxNorm: 336039 1 Tablet(s) PO QHS No Start Date Active Vitamin D 1,000 unit Cap RxNorm: 996862 1 Capsule(s) PO QD No Start D ate Active Co Q-10 oral RxNorm: 86081 oral No Start Date Active metoprolol tartrate 25 mg Tab RxNorm: 679037 1/2 Tablet(s) PO QD No Start Date 12/27/2010 Inactive Nasonex 50 mcg/actuation [place] RxNorm: 4714139 2 [place] NASAL No Sta rt Date 07/06/2017 Inactive Vitamin B12 1000mcg Tablet RxNorm: 1 Tablet(s) PO QD No Start Date 11/12/2014 Inactive amlodipine 5 mg Tab RxNorm: 394631 1 Tablet(s) PO QD No Start Date Inactive simvastatin 40 mg tablet RxNorm: 127020 1 Tablet(s) PO QD No Start Date 06/12/2018 Inactive omeprazole 20 mg capsule,delayed release RxNorm: 630519 1 Capsu le(s) PO BID No Start Date 08/08/2012 Inactive omeprazole 40 mg capsule,delayed release RxNorm: 493907 1 Capsu le(s) PO QD No Start Date 06/12/2018 Inactive Nexium 40 mg Cap RxNorm: 838773 1 Capsule(s) PO QD No Start Date 01/05 Inactive Stool Softener 100 mg Tab RxNorm: 4114832 2 Tablet(s) PO BID No Sta rt Date 03/30/2011 Inactive Calcium with Vitamin D 600 mg (1,500 mg)-400 unit Tab RxNorm : 899685 1 Tablet(s) PO QD No Start Date 11/12/2014 Inactive iron 325 mg (65 mg iron) Tab RxNorm: 840951 1 Tablet(s) PO QD No St art Date 11/12/2014 Inactive Flonase 50 mcg/actuation Nasal [place] RxNorm: 152744 2 [place] DEMOND AL BID No Start Date 10/16/2013 Inactive fluticasone 50 mcg/actuation nasal spray,suspension RxNorm: 5904522 2 [place] NASAL QD to each nostril No Start Date 07/06/2017 Inactive Nasonex 50 mcg/actuation [place] RxNorm: 4075671 2 [place] NASAL QD No Start Date 07/06/2017 Inactive hydralazine 50 mg tablet RxNorm: 216633 1 Tablet(s) PO as needed for BP over 160/90 No Start Date 11/21/2017 Inactive Vimovo 500 mg-20 mg 12 hr Tab RxNorm: 176618 1 Tablet(s) PO BID No Start Date 02/10/2011 Inactive Tylenol PM 25 mg-500 mg/15 mL Oral Soln RxNorm: 5301645 1 PO QPM No Start Date 11/12/2014 Inactive Iron (Ferrous Sulfate) Oral RxNorm: Oral No Start Date 03/30/19 12 Inactive Reglan 10 mg Tab RxNorm: 639694 1 Tablet(s) PO TID before meals No Start Date 02/10/2011 Inactive Xanax 1 mg Tab RxNorm: 847703 1/2 Tablet(s) PO QD No Start Date 11/21 Inactive amlodipine 10 mg tablet RxNorm: 713780 1 Tablet(s) PO QD No Start D ate 09/23/2013 Inactive Iron (dried) Oral RxNorm: Oral No Start Date 03/30/2011 Inactiv e metoprolol tartrate 50 mg tablet RxNorm: 563682 1 Tablet(s) PO BID No Start Date 02/13/2018 Inactive Xanax 0.25 mg tablet RxNorm: 962217 1 Tablet(s) PO BID No Start Date 01/02/2018 Inactive lancets RxNorm: Miscellaneous check blood sugar at least once daily No Start Date 04/03/2012 Inactive simvastatin 40 mg Tab RxNorm: 917577 1 Tablet(s) PO QD No Start Date 02/24/2010 Inactive isosorbide mononitrate ER 30 mg tablet,extended release 24 h r RxNorm: 972724 1 Tablet(s) PO QHS No Start Date 08/13/2018 Inactive amlodipine 2.5 mg tablet RxNorm: 554316 1 Tablet(s) PO QD No Start Date 09/23/2013 Inactive sucralfate 1 gram tablet RxNorm: 610481 1 Tablet(s) PO QID No Start Date 05/09/2018 Inactive Fish Oil Oral RxNorm: Oral No Start Date 03/31/2011 Inactive Multiple Vitamin Oral RxNorm: Oral No Start Date 03/31/2011 Franny ctive metoprolol tartrate 25 mg tablet RxNorm: 679864 1/2 Tablet(s) P O QD No Start Date 06/13/2016 Inactive metoprolol tartrate 50 mg tablet RxNorm: 518741 1/2 Tablet(s) P O BID No Start Date 05/09/2018 Inactive Flonase Allergy Relief 50 mcg/actuation nasal spray,suspensi on RxNorm: 3310937 2 [place] NASAL QHS No Start Date 11/06/2018 Inactive [...] Result Date S ervice Location GFR CALC [id number] GFR Non Afr Amr 52 mL/min 12/15/2018 Unk nown GFR CALC [id number] GFR Afr Amr >60 mL/min 12/15/2018 Unknow n COMPREHENSIVE METABOLIC 50833 AST 17 U/L 2018 Unknown COMPREHENSIVE METABOLIC 22569 ALT 11 U/L 2018 Unknown COMPREHENSIVE METABOLIC 80234 BUN 17 mg/dL 2018 Unknown COMPREHENSIVE METABOLIC 20112 ALBUMIN 3.9 g/dL 2018 Unknown COMPREHENSIVE METABOLIC 66138 CHLORIDE 108 mmol/L 12/15 Unknown COMPREHENSIVE METABOLIC 85957 Bili Total 0.5 mg/dL 12/15 Unknown COMPREHENSIVE METABOLIC 26700 ALK PHOS 72 U/L 2018 Unknown COMPREHENSIVE METABOLIC 59623 SODIUM 142 mmol/L 12/15 Unknown COMPREHENSIVE METABOLIC 39830 CREATININE 1.02 mg/dL 12/05 Unknown COMPREHENSIVE METABOLIC 59685 CALCIUM 9.3 mg/dL 2018 Unknown COMPREHENSIVE METABOLIC 74415 POTASSIUM 4.0 mmol/L 12/15 Unknown COMPREHENSIVE METABOLIC 64314 Total Protein 6.2 g/dL Unknown COMPREHENSIVE METABOLIC 31162 Glucose 93 mg/dL 2018 Unknown COMPREHENSIVE METABOLIC 75837 Bicarbonate 27 mmol/L 12/05 Unknown COMPREHENSIVE METABOLIC 27699 AGAP 7 mmol/L 2018 Unknown GFR CALC [id number] GFR Non Afr Amr 48 mL/min 08/14/2018 Unk nown GFR CALC 1074179 GFR Afr Amr 59 mL/min 08/14/2018 Unknown THYROID STIMULATING HORMONE 26263 TSH 1.936 uIU/mL 08/14/2018 Unknown COMPREHENSIVE METABOLIC 79374 AST 18 U/L 2018 Unknown COMPREHENSIVE METABOLIC 96014 ALT 11 U/L 2018 Unknown COMPREHENSIVE METABOLIC 30724 BUN 18 mg/dL 2018 Unknown COMPREHENSIVE METABOLIC 10910 ALBUMIN 4.2 g/dL 2018 Unknown COMPREHENSIVE METABOLIC 26798 CHLORIDE 109 mmol/L 08/14 Unknown COMPREHENSIVE METABOLIC 33454 Bili Total 0.4 mg/dL 08/14 Unknown COMPREHENSIVE METABOLIC 53297 ALK PHOS 64 U/L 2018 Unknown COMPREHENSIVE METABOLIC 64710 SODIUM 142 mmol/L 08/14 Unknown COMPREHENSIVE METABOLIC 81931 CREATININE 1.09 mg/dL 08/05 Unknown COMPREHENSIVE METABOLIC 39526 CALCIUM 9.3 mg/dL 2018 Unknown COMPREHENSIVE METABOLIC 19375 POTASSIUM 4.7 mmol/L 08/14 Unknown COMPREHENSIVE METABOLIC 90266 Total Protein 6.3 g/dL Unknown COMPREHENSIVE METABOLIC 74223 Glucose 84 mg/dL 2018 Unknown COMPREHENSIVE METABOLIC 91393 Bicarbonate 25 mmol/L 08/05 Unknown COMPREHENSIVE METABOLIC 06221 AGAP 8 mmol/L 2018 Unknown COMPLETE BLOOD COUNT [id number] WBC 7.8 10e9/L 08/15/19 19 Unknown COMPLETE BLOOD COUNT [id number] RBC 4.04 10e12/L 2018 Unknown COMPLETE BLOOD COUNT [id number] HEMOGLOBIN 12.2 g/dL 08/15/19 19 Unknown COMPLETE BLOOD COUNT [id number] HEMATOCRIT 38.6 % 08/15/19 19 Unknown COMPLETE BLOOD COUNT [id number] MCV 95.5 fL 9 Unknown COMPLETE BLOOD COUNT [id number] MCH 30.2 pg 9 Unknown COMPLETE BLOOD COUNT [id number] MCHC 31.6 g/dL 9 Unknown COMPLETE BLOOD COUNT [id number] PLATELET COUNT 215 10e9/L 12/2018 Unknown COMPLETE BLOOD COUNT [id number] Mean Plt Volume 11.2 fL 12/2018 Unknown COMPLETE BLOOD COUNT [id number] Neut Auto 45.7 % 9 Unknown COMPLETE BLOOD COUNT [id number] Lymph Auto 42.1 % 08/15/19 19 Unknown COMPLETE BLOOD COUNT [id number] [place] Auto 9.2 % 9 Unknown COMPLETE BLOOD COUNT [id number] RDW 13.4 % 9 Unknown COMPLETE BLOOD COUNT [id number] Eos Auto 2.7 % 9 Unknown COMPLETE BLOOD COUNT [id number] Baso Auto 0.3 % 9 Unknown COMPLETE BLOOD COUNT [id number] Neutrophil Abs 3.56 10e9/L Unknown COMPLETE BLOOD COUNT [id number] Lymphocyte Abs 3.28 10e9/L Unknown COMPLETE BLOOD COUNT [id number] Monocyte Abs 0.72 10e9/L 08/05 Unknown COMPLETE BLOOD COUNT [id number] Eosinophil Abs 0.21 10e9/L Unknown COMPLETE BLOOD COUNT [id number] RDW-SD 44.9 fL 9 Unknown COMPLETE BLOOD COUNT [id number] Basophil Abs 0.02 10e9/L 08/05 Unknown COMPLETE BLOOD COUNT [id number] WBC 5.2 10e9/L 12/01/19 18 Unknown COMPLETE BLOOD COUNT [id number] RBC 4.21 10e12/L 2017 Unknown COMPLETE BLOOD COUNT [id number] HEMOGLOBIN 12.8 g/dL 12/01/19 18 Unknown COMPLETE BLOOD COUNT [id number] HEMATOCRIT 39.0 % 12/01/19 18 Unknown COMPLETE BLOOD COUNT [id number] MCV 92.6 fL 8 Unknown COMPLETE BLOOD COUNT [id number] MCH 30.4 pg 8 Unknown COMPLETE BLOOD COUNT [id number] MCHC 32.8 g/dL 8 Unknown COMPLETE BLOOD COUNT [id number] PLATELET COUNT 202 10e9/L Unknown COMPLETE BLOOD COUNT [id number] Mean Plt Volume 10.7 fL Unknown COMPLETE BLOOD COUNT [id number] Neut Auto 40.9 % 8 Unknown COMPLETE BLOOD COUNT [id number] Lymph Auto 46.3 % 12/01/19 18 Unknown COMPLETE BLOOD COUNT [id number] [place] Auto 9.3 % 8 Unknown COMPLETE BLOOD COUNT [id number] RDW 13.7 % 8 Unknown COMPLETE BLOOD COUNT [id number] Eos Auto 2.9 % 8 Unknown COMPLETE BLOOD COUNT [id number] Baso Auto 0.6 % 8 Unknown COMPLETE BLOOD COUNT [id number] Neutrophil Abs 2.13 10e9/L Unknown COMPLETE BLOOD COUNT [id number] Lymphocyte Abs 2.41 10e9/L Unknown COMPLETE BLOOD COUNT [id number] Monocyte Abs 0.48 10e9/L 11/06 Unknown COMPLETE BLOOD COUNT [id number] Eosinophil Abs 0.15 10e9/L Unknown COMPLETE BLOOD COUNT [id number] RDW-SD 45.2 fL 8 Unknown COMPLETE BLOOD COUNT [id number] Basophil Abs 0.03 10e9/L 11/06 [place] [address] Glucose 118 mg/dL 11/30 [place] [address] CREATININE 1.01 mg/dL [place] [address] BUN 14 mg/dL 11/30 [place] [address] SODIUM 141 mmol/L 11/06 [place] [address] POTASSIUM 4.0 mmol/L 11/06 [place] [address] CHLORIDE 108 mmol/L 11/06 [place] [address] Bicarbonate 25 mmol/L [place] [address] AGAP 8 mmol/L 11/30 [place] [address] CALCIUM 9.6 mg/dL 11/30 Unknown FREE T4 15047 T4 Free 1.23 ng/dL 11/30/2017 Unknown GFR CALC 6660137 GFR Non Afr Amr 53 mL/min 11/30/2017 Unk nown GFR CALC [id number] GFR Afr Amr >60 mL/min 11/30/2017 Unknow n THYROID STIMULATING HORMONE 06407 TSH 2.124 uIU/mL 11/30/2017 Unknown LIPID GROUP 37281 Cholesterol 152 mg/dL 09/28/2017 Unkno wn LIPID GROUP 55861 Triglyceride 151 mg/dL 09/28/2017 Unkn own LIPID GROUP 16015 HDL CHOLESTEROL 47 mg/dL 09/28/2017 U nknown LIPID GROUP 16047 Chol/HDL Ratio 3.23 ratio 09/28/2017 U nknown LIPID GROUP 52598 NON-HDL Chol 105 mg/dL 09/28/2017 Unkn own LIPID GROUP 73191 LDL Cholesterol 75 mg/dL 09/28/2017 U nknown ASSAY OF TROPONIN QUANT 04345 Troponin-I <0.30 ng/mL Unknown COMPREHENSIVE METABOLIC 24028 AST 20 U/L 2017 Unknown COMPREHENSIVE METABOLIC 32204 ALT 14 U/L 2017 Unknown COMPREHENSIVE METABOLIC 78211 BUN 19 mg/dL 2017 Unknown COMPREHENSIVE METABOLIC 40332 ALBUMIN 4.2 g/dL 2017 Unknown COMPREHENSIVE METABOLIC 11822 CHLORIDE 102 mmol/L 09/27 Unknown COMPREHENSIVE METABOLIC 06754 Bili Total 0.4 mg/dL 09/27 Unknown COMPREHENSIVE METABOLIC 93466 ALK PHOS 66 U/L 2017 Unknown COMPREHENSIVE METABOLIC 93216 SODIUM 135 mmol/L 09/27 Unknown COMPREHENSIVE METABOLIC 85038 CREATININE 1.01 mg/dL 09/05 Unknown COMPREHENSIVE METABOLIC 71511 CALCIUM 9.3 mg/dL 2017 Unknown COMPREHENSIVE METABOLIC 30908 POTASSIUM 4.8 mmol/L 09/27 Unknown COMPREHENSIVE METABOLIC 78418 Total Protein 7.0 g/dL Unknown COMPREHENSIVE METABOLIC 59708 Glucose 91 mg/dL 2017 Unknown COMPREHENSIVE METABOLIC 13643 Bicarbonate 23 mmol/L 09/05 Unknown COMPREHENSIVE METABOLIC 45389 AGAP 10 mmol/L 2017 Unknown COMPLETE BLOOD COUNT [id number] WBC 7.5 10e9/L 09/28/19 18 Unknown COMPLETE BLOOD COUNT [id number] RBC 4.13 10e12/L 2017 Unknown COMPLETE BLOOD COUNT [id number] HEMOGLOBIN 12.6 g/dL 09/28/19 18 Unknown COMPLETE BLOOD COUNT [id number] HEMATOCRIT 38.4 % 09/28/19 18 Unknown COMPLETE BLOOD COUNT [id number] MCV 93.0 fL 8 Unknown COMPLETE BLOOD COUNT [id number] MCH 30.5 pg 8 Unknown COMPLETE BLOOD COUNT [id number] MCHC 32.8 g/dL 8 Unknown COMPLETE BLOOD COUNT [id number] PLATELET COUNT 204 10e9/L Unknown COMPLETE BLOOD COUNT [id number] Mean Plt Volume 10.9 fL Unknown COMPLETE BLOOD COUNT [id number] Neut Auto 43.1 % 8 Unknown COMPLETE BLOOD COUNT [id number] Lymph Auto 45.0 % 09/28/19 18 Unknown COMPLETE BLOOD COUNT 8305881 [place] Auto 9.2 % 8 Unknown COMPLETE BLOOD COUNT [id number] RDW 13.4 % 8 Unknown COMPLETE BLOOD COUNT [id number] Eos Auto 2.3 % 8 Unknown COMPLETE BLOOD COUNT [id number] Baso Auto 0.4 % 8 Unknown COMPLETE BLOOD COUNT [id number] Neutrophil Abs 3.23 10e9/L Unknown COMPLETE BLOOD COUNT [id number] Lymphocyte Abs 3.38 10e9/L Unknown COMPLETE BLOOD COUNT [id number] Monocyte Abs 0.69 10e9/L 09/05 Unknown COMPLETE BLOOD COUNT [id number] Eosinophil Abs 0.17 10e9/L Unknown COMPLETE BLOOD COUNT [id number] RDW-SD 44.4 fL 8 Unknown COMPLETE BLOOD COUNT [id number] Basophil Abs 0.03 10e9/L 09/05 Unknown GFR CALC [id number] GFR Non Afr Amr 53 mL/min 09/27/2017 Unk nown GFR CALC [id number] GFR Afr Amr >60 mL/min 09/27/2017 Unknow n GLYCOSYLATED HEMOGLOBIN TEST 87773 Hgb A1c 69004-1 5.4 % 0 09/27/2017 Unknown MEAN GLUC [id number] Calc Mean Gluc 108 mg/dL 09/27/2017 Unkn own MEAN GLUC 2408040 Calc Mean Gluc 114 mg/dL 11/01/2016 Unkn own LIPID GROUP 69835 Cholesterol 146 mg/dL 11/01/2016 Unkno wn LIPID GROUP 58648 Triglyceride 119 mg/dL 11/01/2016 Unkn own LIPID GROUP 61799 HDL CHOLESTEROL 47 mg/dL 11/01/2016 U nknown LIPID GROUP 74228 Chol/HDL Ratio 3.11 ratio 11/01/2016 U nknown LIPID GROUP 04724 NON-HDL Chol 99 mg/dL 11/01/2016 Unkn own LIPID GROUP 64584 LDL Cholesterol 75 mg/dL 11/01/2016 U nknown GLYCOSYLATED HEMOGLOBIN TEST 84283 Hgb A1c 11013-3 5.6 % 0 11/01/2016 Unknown COMPREHENSIVE METABOLIC 79714 AST 22 U/L 2016 Unknown COMPREHENSIVE METABOLIC 00746 ALT 12 U/L 2016 Unknown COMPREHENSIVE METABOLIC 28754 BUN 17 mg/dL 2016 Unknown COMPREHENSIVE METABOLIC 93769 ALBUMIN 4.0 g/dL 2016 Unknown COMPREHENSIVE METABOLIC 48978 CHLORIDE 110 mmol/L 11/01 Unknown COMPREHENSIVE METABOLIC 11418 Bili Total 0.4 mg/dL 11/01 Unknown COMPREHENSIVE METABOLIC 45645 ALK PHOS 63 U/L 2016 Unknown COMPREHENSIVE METABOLIC 78524 SODIUM 140 mmol/L 11/01 Unknown COMPREHENSIVE METABOLIC 36155 CREATININE 1.05 mg/dL 10/06 Unknown COMPREHENSIVE METABOLIC 68056 CALCIUM 9.2 mg/dL 2016 Unknown COMPREHENSIVE METABOLIC 21543 POTASSIUM 4.2 mmol/L 11/01 Unknown COMPREHENSIVE METABOLIC 82143 Total Protein 6.2 g/dL Unknown COMPREHENSIVE METABOLIC 28612 Glucose 87 mg/dL 2016 Unknown COMPREHENSIVE METABOLIC 18982 Bicarbonate 24 mmol/L 10/06 Unknown COMPREHENSIVE METABOLIC 13068 AGAP 6 mmol/L 2016 Unknown GFR CALC [id number] GFR Non Afr Amr 51 mL/min 11/01/2016 Unk nown GFR CALC [id number] GFR Afr Amr >60 mL/min 11/01/2016 Unknow n COMPLETE BLOOD COUNT [id number] WBC 6.7 10e9/L 11/02/19 17 Unknown COMPLETE BLOOD COUNT [id number] RBC 4.04 10e12/L 2016 Unknown COMPLETE BLOOD COUNT [id number] HEMOGLOBIN 12.1 g/dL 11/02/19 17 Unknown COMPLETE BLOOD COUNT [id number] HEMATOCRIT 38.0 % 11/02/19 17 Unknown COMPLETE BLOOD COUNT [id number] MCV 94.1 fL 7 Unknown COMPLETE BLOOD COUNT 8534286 MCH 30.0 pg 7 Unknown COMPLETE BLOOD COUNT 9034444 MCHC 31.8 g/dL 7 Unknown COMPLETE BLOOD COUNT 2205226 PLATELET COUNT 206 10e9/L Unknown COMPLETE BLOOD COUNT 1540929 Mean Plt Volume 11.3 fL Unknown COMPLETE BLOOD COUNT 4570341 Neut Auto 35.8 % 7 Unknown COMPLETE BLOOD COUNT [id number] Lymph Auto 51.6 % 11/02/19 17 Unknown COMPLETE BLOOD COUNT 3791821 [place] Auto 8.8 % 7 Unknown COMPLETE BLOOD COUNT 7616998 RDW 13.5 % 7 Unknown COMPLETE BLOOD COUNT 3756773 Eos Auto 3.4 % 7 Unknown COMPLETE BLOOD COUNT 7199106 Baso Auto 0.4 % 7 Unknown COMPLETE BLOOD COUNT [id number] Neutrophil Abs 2.40 10e9/L Unknown COMPLETE BLOOD COUNT [id number] Lymphocyte Abs 3.46 10e9/L Unknown COMPLETE BLOOD COUNT [id number] Monocyte Abs 0.59 10e9/L 10/06 Unknown COMPLETE BLOOD COUNT [id number] Eosinophil Abs 0.23 10e9/L Unknown COMPLETE BLOOD COUNT 3362519 RDW-SD 45.3 fL 7 Unknown COMPLETE BLOOD COUNT [id number] Basophil Abs 0.03 10e9/L 10/06 Unknown THYROID STIMULATING HORMONE 87950 TSH 1.981 uIU/mL 11/01/2016 Unknown COMPLETE BLOOD COUNT [id number] WBC 6.0 10e9/L 05/14/19 17 Unknown COMPLETE BLOOD COUNT 0196619 RBC 4.29 10e12/L 2016 Unknown COMPLETE BLOOD COUNT [id number] HEMOGLOBIN 12.9 g/dL 05/14/19 17 Unknown COMPLETE BLOOD COUNT 9918554 HEMATOCRIT 38.4 % 05/14/19 17 Unknown COMPLETE BLOOD COUNT 6864351 MCV 89.5 fL 7 Unknown COMPLETE BLOOD COUNT 9344086 MCH 30.1 pg 7 Unknown COMPLETE BLOOD COUNT 4537769 MCHC 33.6 g/dL 7 Unknown COMPLETE BLOOD COUNT [id number] PLATELET COUNT 181 10e9/L 11/2016 Unknown COMPLETE BLOOD COUNT 8429237 Mean Plt Volume 11.7 fL 11/2016 Unknown COMPLETE BLOOD COUNT 5602757 Neut Auto 36.9 % 7 Unknown COMPLETE BLOOD COUNT 2022204 Lymph Auto 50.4 % 05/14/19 17 Unknown COMPLETE BLOOD COUNT 5528862 [place] Auto 9.0 % 7 Unknown COMPLETE BLOOD COUNT 4773953 RDW 13.7 % 7 Unknown COMPLETE BLOOD COUNT 5197035 Eos Auto 3.4 % 7 Unknown COMPLETE BLOOD COUNT 0665576 Baso Auto 0.3 % 7 Unknown COMPLETE BLOOD COUNT [id number] Neutrophil Abs 2.21 10e9/L Unknown COMPLETE BLOOD COUNT [id number] Lymphocyte Abs 3.02 10e9/L Unknown COMPLETE BLOOD COUNT 7109808 Monocyte Abs 0.54 10e9/L 11/2016 Unknown COMPLETE BLOOD COUNT [id number] Eosinophil Abs 0.20 10e9/L Unknown COMPLETE BLOOD COUNT 7034792 RDW-SD 44.0 fL 7 Unknown COMPLETE BLOOD COUNT 4778828 Basophil Abs 0.02 10e9/L 11/2016 Unknown GLYCOSYLATED HEMOGLOBIN TEST 64737 Hgb A1c 86002-7 5.4 % 0 05/13/2016 Unknown THYROID STIMULATING HORMONE 84477 TSH 2.200 uIU/mL 05/13/2016 Unknown GFR CALC 0421260 GFR Non Afr Amr 50 mL/min 05/13/2016 Unk nown GFR CALC 9200538 GFR Afr Amr >60 mL/min 05/13/2016 Unknow n MEAN GLUC [id number] Calc Mean Gluc 108 mg/dL 05/13/2016 Unkn own COMPREHENSIVE METABOLIC 51526 AST 18 U/L 2016 Unknown COMPREHENSIVE METABOLIC 85991 ALT 10 U/L 2016 Unknown COMPREHENSIVE METABOLIC 06754 BUN 20 mg/dL 2016 Unknown COMPREHENSIVE METABOLIC 62398 ALBUMIN 4.1 g/dL 2016 Unknown COMPREHENSIVE METABOLIC 24196 CHLORIDE 109 mmol/L 05/13 Unknown COMPREHENSIVE METABOLIC 04645 Bili Total 0.6 mg/dL 05/13 Unknown COMPREHENSIVE METABOLIC 12682 ALK PHOS 64 U/L 2016 Unknown COMPREHENSIVE METABOLIC 93058 SODIUM 141 mmol/L 05/13 Unknown COMPREHENSIVE METABOLIC 91454 CREATININE 1.06 mg/dL 11/2016 Unknown COMPREHENSIVE METABOLIC 31110 CALCIUM 9.9 mg/dL 2016 Unknown COMPREHENSIVE METABOLIC 47244 POTASSIUM 4.2 mmol/L 05/13 Unknown COMPREHENSIVE METABOLIC 09730 Total Protein 6.3 g/dL Unknown COMPREHENSIVE METABOLIC 99589 Glucose 99 mg/dL 2016 Unknown COMPREHENSIVE METABOLIC 19673 Bicarbonate 21 mmol/L 11/2016 Unknown COMPREHENSIVE METABOLIC 06006 AGAP 11 mmol/L 2016 Unknown LIPID GROUP 85298 Cholesterol 169 mg/dL 11/25/2015 Unkno wn LIPID GROUP 73346 Triglyceride 165 mg/dL 11/25/2015 Unkn own LIPID GROUP 79866 HDL CHOLESTEROL 43 mg/dL 11/25/2015 U nknown LIPID GROUP 77977 Chol/HDL Ratio 3.93 ratio 11/25/2015 U nknown LIPID GROUP 34586 NON-HDL Chol 126 mg/dL 11/25/2015 Unkn own LIPID GROUP 69146 LDL Cholesterol 93 mg/dL 11/25/2015 U nknown COMPREHENSIVE METABOLIC 71059 AST 18 U/L 2015 Unknown COMPREHENSIVE METABOLIC 25554 ALT 10 U/L 2015 Unknown COMPREHENSIVE METABOLIC 25769 BUN 20 mg/dL 2015 Unknown COMPREHENSIVE METABOLIC 13338 ALBUMIN 3.9 g/dL 2015 Unknown COMPREHENSIVE METABOLIC 11101 CHLORIDE 110 mmol/L 11/24 Unknown COMPREHENSIVE METABOLIC 44022 Bili Total 0.5 mg/dL 11/24 Unknown COMPREHENSIVE METABOLIC 19599 ALK PHOS 72 U/L 2015 Unknown COMPREHENSIVE METABOLIC 67637 SODIUM 141 mmol/L 11/24 Unknown COMPREHENSIVE METABOLIC 95854 CREATININE 1.12 mg/dL 11/06 Unknown COMPREHENSIVE METABOLIC 86099 CALCIUM 9.7 mg/dL 2015 Unknown COMPREHENSIVE METABOLIC 09015 POTASSIUM 4.4 mmol/L 11/24 Unknown COMPREHENSIVE METABOLIC 60386 Total Protein 6.2 g/dL Unknown COMPREHENSIVE METABOLIC 82836 Glucose 90 mg/dL 2015 Unknown COMPREHENSIVE METABOLIC 11615 Bicarbonate 23 mmol/L 11/06 Unknown COMPREHENSIVE METABOLIC 17202 AGAP 8 mmol/L 2015 Unknown GFR CALC 3347073 GFR Non Afr Amr 47 mL/min 11/25/2015 Unk nown GFR CALC 1687348 GFR Afr Amr 57 mL/min 11/25/2015 Unknown GLYCOSYLATED HEMOGLOBIN TEST 76301 Hgb A1c 07356-2 5.5 % 0 11/25/2015 Unknown THYROID STIMULATING HORMONE 43501 TSH 2.537 uIU/mL 11/25/2015 Unknown FREE T4 61593 T4 Free 1.36 ng/dL 11/25/2015 Unknown COMPLETE BLOOD COUNT 6576452 WBC 6.8 10e9/L 11/25/19 16 Unknown COMPLETE BLOOD COUNT 4279498 RBC 4.20 10e12/L 2015 Unknown COMPLETE BLOOD COUNT 8429409 HEMOGLOBIN 12.5 g/dL 11/25/19 16 Unknown COMPLETE BLOOD COUNT 1827077 HEMATOCRIT 38.0 % 11/25/19 16 Unknown COMPLETE BLOOD COUNT 0315480 MCV 90.5 fL 6 Unknown COMPLETE BLOOD COUNT 4616413 MCH 29.8 pg 6 Unknown COMPLETE BLOOD COUNT 7023455 MCHC 32.9 g/dL 6 Unknown COMPLETE BLOOD COUNT 7915429 PLATELET COUNT 197 10e9/L Unknown COMPLETE BLOOD COUNT 2929444 Mean Plt Volume 11.7 fL Unknown COMPLETE BLOOD COUNT 7687940 Neut Auto 41.3 % 6 Unknown COMPLETE BLOOD COUNT 6846938 Lymph Auto 47.1 % 11/25/19 16 Unknown COMPLETE BLOOD COUNT 5364905 [place] Auto 7.8 % 6 Unknown COMPLETE BLOOD COUNT 0308942 RDW 13.8 % 6 Unknown COMPLETE BLOOD COUNT 9312896 Eos Auto 3.4 % 6 Unknown COMPLETE BLOOD COUNT 4769942 Baso Auto 0.4 % 6 Unknown COMPLETE BLOOD COUNT 0288190 Neutrophil Abs 2.81 10e9/L Unknown COMPLETE BLOOD COUNT 1003738 Lymphocyte Abs 3.20 10e9/L Unknown COMPLETE BLOOD COUNT 2412962 Monocyte Abs 0.53 10e9/L 11/06 Unknown COMPLETE BLOOD COUNT 0635185 Eosinophil Abs 0.23 10e9/L Unknown COMPLETE BLOOD COUNT 8220869 RDW-SD 44.4 fL 6 Unknown COMPLETE BLOOD COUNT 3372241 Basophil Abs 0.03 10e9/L 11/06 Unknown MEAN GLUC 0739921 Calc Mean Gluc 111 mg/dL 11/25/2015 [place] [address] Glucose 89 MG/DL 02/19 [place] [address] CREATININE 1.12 MG/DL [place] [address] BUN 20 MG/DL 02/19 [place] [address] SODIUM 139 MMOL/L 02/04 [place] [address] POTASSIUM 4.6 MMOL/L 02/04 [place] [address] CHLORIDE 108 MMOL/L 02/04 [place] [address] BICARB 26 MMOL/L 02/19 [place] [address] ANION GAP 5 MEQ/L 02/19 [place] [address] CALCIUM 10.0 MG/DL 02/04 Unknown GFR CALC 4251326 GFR AA 57.0L ML/MIN 02/19/2015 Unknow n GFR CALC 7930828 GFR NON-AA 47.0L ML/MIN 02/19/2015 Unkno wn THYROID STIMULATING HORMONE 31639 TSH 2.378 uIU/ML 11/14/2014 Unknown COMPLETE BLOOD COUNT 5548510 WBC 6.4 10e9/L 11/15/19 15 Unknown COMPLETE BLOOD COUNT 8006563 RBC 3.99 10e12/L 2014 Unknown COMPLETE BLOOD COUNT 7077715 HGB 11.9 g/dL 5 Unknown COMPLETE BLOOD COUNT 3098589 HCT DET 36.9 % 5 Unknown COMPLETE BLOOD COUNT 1906388 MCV 92.5 fL 5 Unknown COMPLETE BLOOD COUNT 7621241 MCH 29.8 pg 5 Unknown COMPLETE BLOOD COUNT 8940328 MCHC 32.2 g/dL 5 Unknown COMPLETE BLOOD COUNT 2792147 PLT 172 10e9/L 11/15/19 15 Unknown COMPLETE BLOOD COUNT 3866548 MPV 11.7 fL 5 Unknown COMPLETE BLOOD COUNT 1854553 CINTH[place] % 40.4 % 5 Unknown COMPLETE BLOOD COUNT 4768439 LY % 48.0 % 5 Unknown COMPLETE BLOOD COUNT 3915822 MON % 8.3 % 5 Unknown COMPLETE BLOOD COUNT 3637253 EOS % 2.8 % 5 Unknown COMPLETE BLOOD COUNT 1470459 BASO % 0.5 % 5 Unknown COMPLETE BLOOD COUNT 6310866 RDW 13.6 % 5 Unknown COMPLETE BLOOD COUNT 0444322 ABS CINTHYA 2.59 10e9/L 015 Unknown COMPLETE BLOOD COUNT 0658396 ABS LYMPH 3.07 10e9/L 015 Unknown COMPLETE BLOOD COUNT 5633166 ABS MONO 0.53 10e9/L 015 Unknown COMPLETE BLOOD COUNT 1459872 ABS EOS 0.18 10e9/L 015 Unknown COMPLETE BLOOD COUNT 6115179 ABS BASO 0.03 10e9/L 015 Unknown COMPLETE BLOOD COUNT 0748296 RDW-SD 44.9 fL 5 Unknown LIPID GROUP 14747 HDL TEST 42 MG/DL 11/14/2014 Unknown LIPID GROUP 67873 TRIG 177 MG/DL 11/14/2014 Unknown LIPID GROUP 02630 TEST LDL 72 MG/DL 11/14/2014 Unknown LIPID GROUP 21491 CHOL 149 MG/DL 11/14/2014 Unknown LIPID GROUP 89478 RCHOL/HDL 3.55 RATIO 11/14/2014 Unknow n LIPID GROUP 26384 NON-HDL CH 107 MG/DL 11/14/2014 Unknow n GLYCOSYLATED HEMOGLOBIN TEST 03159 A1C HPLC 75057-4 5.5 % 0 11/14/2014 Unknown FREE T4 40507 FREE T4 1.39 NG/DL 11/14/2014 Unknown GFR CALC 6016864 GFR AA 55.0L ML/MIN 11/14/2014 Unknow n GFR CALC 6095835 GFR NON-AA 46.0L ML/MIN 11/14/2014 Unkno wn COMPREHENSIVE METABOLIC 61835 AST 17 U/L 2014 Unknown COMPREHENSIVE METABOLIC 15113 ALT 10 IU/L 2014 Unknown COMPREHENSIVE METABOLIC 10619 BUN 20 MG/DL 2014 Unknown COMPREHENSIVE METABOLIC 70756 ALBUMIN 3.9 GM/DL 2014 Unknown COMPREHENSIVE METABOLIC 30702 CHLORIDE 111 MMOL/L 11/14 Unknown COMPREHENSIVE METABOLIC 49066 BILI TOT 0.4 MG/DL 2014 Unknown COMPREHENSIVE METABOLIC 40873 ALK PHOS 70 U/L 2014 Unknown COMPREHENSIVE METABOLIC 85768 SODIUM 142 MMOL/L 11/14 Unknown COMPREHENSIVE METABOLIC 74593 CREATININE 1.16 MG/DL 11/05 Unknown COMPREHENSIVE METABOLIC 92879 CALCIUM 9.4 MG/DL 2014 Unknown COMPREHENSIVE METABOLIC 53895 POTASSIUM 4.6 MMOL/L 11/14 Unknown COMPREHENSIVE METABOLIC 68231 PROT TOT 6.2 GM/DL 2014 Unknown COMPREHENSIVE METABOLIC 38083 Glucose 90 MG/DL 2014 Unknown COMPREHENSIVE METABOLIC 56435 BICARB 24 MMOL/L 2014 Unknown COMPREHENSIVE METABOLIC 96867 ANION GAP 7 MEQ/L 2014 Unknown THYROID STIMULATING HORMONE 53983 TSH 2.427 uIU/ML 05/10/2014 Unknown LIPID GROUP 16182 HDL TEST 47 MG/DL 05/10/2014 Unknown LIPID GROUP 52869 TRIG 145 MG/DL 05/10/2014 Unknown LIPID GROUP 99556 TEST LDL 73 MG/DL 05/10/2014 Unknown LIPID GROUP 47773 CHOL 149 MG/DL 05/10/2014 Unknown LIPID GROUP 90029 RCHOL/HDL 3.17 RATIO 05/10/2014 Unknow n LIPID GROUP 77247 NON-HDL CH 102 MG/DL 05/10/2014 Unknow n COMPREHENSIVE METABOLIC 48029 AST 17 U/L 2014 Unknown COMPREHENSIVE METABOLIC 11870 ALT 9 IU/L 2014 Unknown COMPREHENSIVE METABOLIC 53378 BUN 19 MG/DL 2014 Unknown COMPREHENSIVE METABOLIC 09211 ALBUMIN 4.3 GM/DL 2014 Unknown COMPREHENSIVE METABOLIC 48431 CHLORIDE 108 MMOL/L 05/10 Unknown COMPREHENSIVE METABOLIC 06573 BILI TOT 0.5 MG/DL 2014 Unknown COMPREHENSIVE METABOLIC 34092 ALK PHOS 68 U/L 2014 Unknown COMPREHENSIVE METABOLIC 19335 SODIUM 140 MMOL/L 05/10 Unknown COMPREHENSIVE METABOLIC 04715 CREATININE 1.08 MG/DL 08/2014 Unknown COMPREHENSIVE METABOLIC 59765 CALCIUM 9.9 MG/DL 2014 Unknown COMPREHENSIVE METABOLIC 00721 POTASSIUM 4.3 MMOL/L 05/10 Unknown COMPREHENSIVE METABOLIC 91107 PROT TOT 7.2 GM/DL 2014 Unknown COMPREHENSIVE METABOLIC 11343 Glucose 94 MG/DL 2014 Unknown COMPREHENSIVE METABOLIC 74739 BICARB 26 MMOL/L 2014 Unknown COMPREHENSIVE METABOLIC 81075 ANION GAP 6 MEQ/L 2014 Unknown GFR CALC 4538393 GFR AA 60.0L ML/MIN 05/10/2014 Unknow n GFR CALC 6859871 GFR NON-AA 49.0L ML/MIN 05/10/2014 Unkno wn GLYCOSYLATED HEMOGLOBIN TEST 75179 A1C HPLC 18597-2 5.6 % 0 05/10/2014 Unknown COMPLETE BLOOD COUNT 9737928 WBC 7.2 10e9/L 05/11/19 15 Unknown COMPLETE BLOOD COUNT 3078214 RBC 4.28 10e12/L 2014 Unknown COMPLETE BLOOD COUNT 4605650 HGB 12.8 g/dL 5 Unknown COMPLETE BLOOD COUNT 7848668 HCT DET 39.3 % 5 Unknown COMPLETE BLOOD COUNT 7178952 MCV 91.8 fL 5 Unknown COMPLETE BLOOD COUNT 5805841 MCH 29.9 pg 5 Unknown COMPLETE BLOOD COUNT 1881735 MCHC 32.6 g/dL 5 Unknown COMPLETE BLOOD COUNT 1954428 PLT 189 10e9/L 05/11/19 15 Unknown COMPLETE BLOOD COUNT 5127573 MPV 11.2 fL 5 Unknown COMPLETE BLOOD COUNT 9254328 C[place]TH[place] % 38.0 % 5 Unknown COMPLETE BLOOD COUNT 5456954 LY % 51.0 % 5 Unknown COMPLETE BLOOD COUNT 4000661 MON % 7.7 % 5 Unknown COMPLETE BLOOD COUNT 9641171 EOS % 2.9 % 5 Unknown COMPLETE BLOOD COUNT 2278284 BASO % 0.4 % 5 Unknown COMPLETE BLOOD COUNT 2976895 RDW 14.0 % 5 Unknown COMPLETE BLOOD COUNT 3552280 ABS CINTHYA 2.74 10e9/L 015 Unknown COMPLETE BLOOD COUNT 0182750 ABS LYMPH 3.67 10e9/L 015 Unknown COMPLETE BLOOD COUNT 6438453 ABS MONO 0.55 10e9/L 015 Unknown COMPLETE BLOOD COUNT 6924615 ABS EOS 0.21 10e9/L 015 Unknown COMPLETE BLOOD COUNT 8419048 ABS BASO 0.03 10e9/L 015 Unknown COMPLETE BLOOD COUNT 5873457 RDW-SD 46.1 fL 5 Unknown FREE T4 64541 FREE T4 1.14 NG/DL 05/10/2014 Unknown GLYCOSYLATED HEMOGLOBIN TEST 96470 A1C HPLC 19173-1 5.2 % 0 03/29/2013 Unknown FREE T4 03195 FREE T4 1.40 NG/DL 03/28/2013 Unknown GFR CALC 9146575 GFR AA >60 ML/MIN 03/28/2013 Unknown GFR CALC 5435303 GFR NON-AA 52.0L ML/MIN 03/28/2013 Unkno wn COMPREHENSIVE METABOLIC 78745 AST 15 U/L 2013 Unknown COMPREHENSIVE METABOLIC 16221 ALT 9 IU/L 2013 Unknown COMPREHENSIVE METABOLIC 06098 BUN 17 MG/DL 2013 Unknown COMPREHENSIVE METABOLIC 01618 ALBUMIN 4.0 GM/DL 2013 Unknown COMPREHENSIVE METABOLIC 75685 CHLORIDE 112 MMOL/L 03/28 Unknown COMPREHENSIVE METABOLIC 32845 BILI TOT 0.5 MG/DL 2013 Unknown COMPREHENSIVE METABOLIC 52103 ALK PHOS 66 U/L 2013 Unknown COMPREHENSIVE METABOLIC 69282 SODIUM 140 MMOL/L 03/28 Unknown COMPREHENSIVE METABOLIC 34566 CREATININE 1.03 MG/DL 03/08 Unknown COMPREHENSIVE METABOLIC 60197 CALCIUM 9.5 MG/DL 2013 Unknown COMPREHENSIVE METABOLIC 15719 POTASSIUM 4.1 MMOL/L 03/28 Unknown COMPREHENSIVE METABOLIC 21008 PROT TOT 6.2 GM/DL 2013 Unknown COMPREHENSIVE METABOLIC 99727 Glucose 102 MG/DL 2013 Unknown COMPREHENSIVE METABOLIC 64051 BICARB 23 MMOL/L 2013 Unknown COMPREHENSIVE METABOLIC 62873 ANION GAP 5 MEQ/L 2013 Unknown THYROID STIMULATING HORMONE 33599 TSH 2.074 uIU/ML 03/28/2013 Unknown VITAMIN B 12 FOLIC ACID 50743|17823 VIT B 12 423 PG/ML 03/08 Unknown VITAMIN B 12 FOLIC ACID 78842|23694 FOLIC ACID 19.7 NG/ML Unknown LIPID GROUP 95320 HDL TEST 40 MG/DL 03/28/2013 Unknown LIPID GROUP 78999 TRIG 145 MG/DL 03/28/2013 Unknown LIPID GROUP 12090 TEST LDL 81 MG/DL 03/28/2013 Unknown LIPID GROUP 55090 CHOL 150 MG/DL 03/28/2013 Unknown LIPID GROUP 96869 RCHOL/HDL 3.75 RATIO 03/28/2013 Unknow n COMPLETE BLOOD COUNT 6943430 WBC 6.0 10e9/L 03/28/19 14 Unknown COMPLETE BLOOD COUNT 4980819 RBC 4.26 10e12/L 2013 Unknown COMPLETE BLOOD COUNT 5150608 HGB 12.7 g/dL 4 Unknown COMPLETE BLOOD COUNT 9995440 HCT DET 38.7 % 4 Unknown COMPLETE BLOOD COUNT 4071468 MCV 90.8 fL 4 Unknown COMPLETE BLOOD COUNT 1816111 MCH 29.8 pg 4 Unknown COMPLETE BLOOD COUNT 3049620 MCHC 32.8 g/dL 4 Unknown COMPLETE BLOOD COUNT 2340935 PLT 178 10e9/L 03/28/19 14 Unknown COMPLETE BLOOD COUNT 2758477 MPV 11.7 fL 4 Unknown COMPLETE BLOOD COUNT 6188130 CINTH[place] % 30.5 % 4 Unknown COMPLETE BLOOD COUNT 7410032 LY % 55.4 % 4 Unknown COMPLETE BLOOD COUNT 1530586 MON % 9.0 % 4 Unknown COMPLETE BLOOD COUNT 2366426 EOS % 4.4 % 4 Unknown COMPLETE BLOOD COUNT 0925385 BASO % 0.7 % 4 Unknown COMPLETE BLOOD COUNT 5331917 RDW 13.3 % 4 Unknown COMPLETE BLOOD COUNT 2000571 ABS CINTHYA 1.83 10e9/L 014 Unknown COMPLETE BLOOD COUNT 7124076 ABS LYMPH 3.32 10e9/L 014 Unknown COMPLETE BLOOD COUNT 3274229 ABS MONO 0.54 10e9/L 014 Unknown COMPLETE BLOOD COUNT 7802135 ABS EOS 0.26 10e9/L 014 Unknown COMPLETE BLOOD COUNT 3947173 ABS BASO 0.04 10e9/L 014 Unknown COMPLETE BLOOD COUNT 4085270 RDW-SD 43.2 fL 4 Unknown HEMOGLOBIN A1C (GLYCOSYLATED) 0752244 A1C [facility] 17966-2 5.5 % 02/24/2012 Unknown COMPLETE BLOOD COUNT 4811089 WBC 6.0 10e9/L 02/23/20 12 Unknown COMPLETE BLOOD COUNT 3479134 RBC 4.22 10e12/L 2011 Unknown COMPLETE BLOOD COUNT 8911222 HGB 12.4 g/dL 2 Unknown COMPLETE BLOOD COUNT 4611600 HCT DET 38.2 % 2 Unknown COMPLETE BLOOD COUNT 9325719 MCV 90.5 fL 2 Unknown COMPLETE BLOOD COUNT 9238307 MCH 29.4 pg 2 Unknown COMPLETE BLOOD COUNT 5683927 MCHC 32.5 g/dL 2 Unknown COMPLETE BLOOD COUNT 5507497 PLT 187 10e9/L 02/23/20 12 Unknown COMPLETE BLOOD COUNT 3398101 MPV 11.5 fL 2 Unknown COMPLETE BLOOD COUNT 0556189 CINTHYA % 36.4 % 2 Unknown COMPLETE BLOOD COUNT 7653450 LY % 51.0 % 2 Unknown COMPLETE BLOOD COUNT 9165011 MON % 8.7 % 2 Unknown COMPLETE BLOOD COUNT 1024646 EOS % 3.2 % 2 Unknown COMPLETE BLOOD COUNT 7119721 BASO % 0.7 % 2 Unknown COMPLETE BLOOD COUNT 5714300 RDW 13.7 % 2 Unknown COMPLETE BLOOD COUNT 8103895 ABS CINTHYA 2.18 10e9/L 012 Unknown COMPLETE BLOOD COUNT 7381627 ABS LYMPH 3.06 10e9/L 012 Unknown COMPLETE BLOOD COUNT 4737976 ABS MONO 0.52 10e9/L 012 Unknown COMPLETE BLOOD COUNT 6994875 ABS EOS 0.19 10e9/L 012 Unknown COMPLETE BLOOD COUNT 4309933 ABS BASO 0.04 10e9/L 012 Unknown COMPLETE BLOOD COUNT 9091878 RDW-SD 44.3 fL 2 Unknown LIPID GROUP 39423 HDL TEST 42 MG/DL 02/23/2012 Unknown LIPID GROUP 05913 TRIG 156 MG/DL 02/23/2012 Unknown LIPID GROUP 94298 TEST LDL 80 MG/DL 02/23/2012 Unknown LIPID GROUP 22673 CHOL 153 MG/DL 02/23/2012 Unknown LIPID GROUP 59116 RCHOL/HDL 3.64 RATIO 02/23/2012 Unknow n FREE T4 97045 FREE T4 1.22 NG/DL 02/23/2012 Unknown COMPREHENSIVE METABOLIC 17484 AST 20 U/L 2011 Unknown COMPREHENSIVE METABOLIC 89520 ALT 11 IU/L 2011 Unknown COMPREHENSIVE METABOLIC 28277 BUN 19 MG/DL 2011 Unknown COMPREHENSIVE METABOLIC 01851 ALBUMIN 4.3 GM/DL 2011 Unknown COMPREHENSIVE METABOLIC 88530 CHLORIDE 109 MMOL/L 02/22 Unknown COMPREHENSIVE METABOLIC 63082 BILI TOT 0.6 MG/DL 2011 Unknown COMPREHENSIVE METABOLIC 03391 ALK PHOS 84 U/L 2011 Unknown COMPREHENSIVE METABOLIC 67104 SODIUM 142 MMOL/L 02/22 Unknown COMPREHENSIVE METABOLIC 61335 CREATININE 1.09 MG/DL 02/04 Unknown COMPREHENSIVE METABOLIC 27560 CALCIUM 9.8 MG/DL 2011 Unknown COMPREHENSIVE METABOLIC 35158 POTASSIUM 4.2 MMOL/L 02/22 Unknown COMPREHENSIVE METABOLIC 12128 PROT TOT 6.4 GM/DL 2011 Unknown COMPREHENSIVE METABOLIC 74321 Glucose 89 MG/DL 2011 Unknown COMPREHENSIVE METABOLIC 20457 BICARB 25 MMOL/L 2011 Unknown COMPREHENSIVE METABOLIC 89047 ANION GAP 8 MEQ/L 2011 Unknown GFR CALC 5877517 GFR AA 60.0L ML/MIN 02/23/2012 Unknow n GFR CALC 3576456 GFR NON-AA 49.0L ML/MIN 02/23/2012 Unkno wn THYROID STIMULATING HORMONE 03294 TSH 2.450 uIU/ML 02/23/2012 Unknown COMPREHENSIVE METABOLIC 99384 AST 22 U/L 2011 Unknown COMPREHENSIVE METABOLIC 15748 ALT 14 IU/L 2011 Unknown COMPREHENSIVE METABOLIC 38208 BUN 21 MG/DL 2011 Unknown COMPREHENSIVE METABOLIC 17565 ALBUMIN 4.3 GM/DL 2011 Unknown COMPREHENSIVE METABOLIC 94311 CHLORIDE 106 MMOL/L 04/01 Unknown COMPREHENSIVE METABOLIC 52873 BILI TOT 0.4 MG/DL 2011 Unknown COMPREHENSIVE METABOLIC 35004 ALK PHOS 80 U/L 2011 Unknown COMPREHENSIVE METABOLIC 84247 SODIUM 141 MMOL/L 04/01 Unknown COMPREHENSIVE METABOLIC 04414 CREATININE 1.13 MG/DL 03/08 Unknown COMPREHENSIVE METABOLIC 90688 CALCIUM 9.4 MG/DL 2011 Unknown COMPREHENSIVE METABOLIC 21347 POTASSIUM 4.3 MMOL/L 04/01 Unknown COMPREHENSIVE METABOLIC 81188 PROT TOT 6.7 GM/DL 2011 Unknown COMPREHENSIVE METABOLIC 52899 Glucose 98 MG/DL 2011 Unknown COMPREHENSIVE METABOLIC 93939 BICARB 25 MMOL/L 2011 Unknown COMPREHENSIVE METABOLIC 94674 ANION GAP 10 MEQ/L 2011 Unknown LIPID GROUP 49416 HDL TEST 44 MG/DL 04/01/2011 Unknown LIPID GROUP 13568 TRIG 164 MG/DL 04/01/2011 Unknown LIPID GROUP 36061 TEST LDL 98 MG/DL 04/01/2011 Unknown LIPID GROUP 40141 CHOL 175 MG/DL 04/01/2011 Unknown LIPID GROUP 67981 RCHOL/HDL 3.98 RATIO 04/01/2011 Unknow n COMPLETE BLOOD COUNT 27024 WBC 6.7 10e9/L 04/01/19 12 Unknown COMPLETE BLOOD COUNT 10897 RBC 4.36 10e12/L 2011 Unknown COMPLETE BLOOD COUNT 88553 HGB 12.9 g/dL 2 Unknown COMPLETE BLOOD COUNT 88559 HCT DET 39.4 % 2 Unknown COMPLETE BLOOD COUNT 90669 MCV 90.4 fL 2 Unknown COMPLETE BLOOD COUNT 36455 MCH 29.6 pg 2 Unknown COMPLETE BLOOD COUNT 70233 MCHC 32.7 g/dL 2 Unknown COMPLETE BLOOD COUNT 37071 PLT 184 10e9/L 04/01/19 12 Unknown COMPLETE BLOOD COUNT 32640 MPV 10.9 fL 2 Unknown COMPLETE BLOOD COUNT 79055 CINTHYA % 41.5 % 2 Unknown COMPLETE BLOOD COUNT 96902 LY % 45.7 % 2 Unknown COMPLETE BLOOD COUNT 74753 MON % 9.4 % 2 Unknown COMPLETE BLOOD COUNT 45763 EOS % 3.0 % 2 Unknown COMPLETE BLOOD COUNT 05336 BASO % 0.4 % 2 Unknown COMPLETE BLOOD COUNT 97595 RDW 13.2 % 2 Unknown COMPLETE BLOOD COUNT 83541 ABS CINTHYA 2.78 10e9/L 012 Unknown COMPLETE BLOOD COUNT 92561 ABS LYMPH 3.06 10e9/L 012 Unknown COMPLETE BLOOD COUNT 35858 ABS MONO 0.63 10e9/L 012 Unknown COMPLETE BLOOD COUNT 70222 ABS EOS 0.20 10e9/L 012 Unknown COMPLETE BLOOD COUNT 33635 ABS BASO 0.03 10e9/L 012 Unknown COMPLETE BLOOD COUNT 92795 RDW-SD 42.3 fL 2 Unknown GFR CALC 0196666 GFR AA 57.0L ML/MIN 04/01/2011 Unknow n GFR CALC 4479377 GFR NON-AA 47.0L ML/MIN 04/01/2011 Unkno wn THYROID STIMULATING HORMONE 85545 TSH 2.663 uIU/ML 04/01/2011 Unknown FREE T4 30578 FREE T4 1.15 NG/DL 04/01/2011 Unknown THYROID STIMULATING HORMONE 05704 TSH 1.908 uIU/ML 07/06/2010 Unknown COMPLETE BLOOD COUNT 16179 WBC 6.4 10e9/L 07/07/19 11 Unknown COMPLETE BLOOD COUNT 37115 RBC 3.92 10e12/L 2010 Unknown COMPLETE BLOOD COUNT 05222 HGB 11.8 g/dL 1 Unknown COMPLETE BLOOD COUNT 44501 HCT DET 36.0 % 1 Unknown COMPLETE BLOOD COUNT 30840 MCV 91.8 fL 1 Unknown COMPLETE BLOOD COUNT 24395 MCH 30.1 pg 1 Unknown COMPLETE BLOOD COUNT 28590 MCHC 32.8 g/dL 1 Unknown COMPLETE BLOOD COUNT 24452 PLT 176 10e9/L 07/07/19 11 Unknown COMPLETE BLOOD COUNT 28028 MPV 11.4 fL 1 Unknown COMPLETE BLOOD COUNT 08934 CINTHYA % 50.4 % 1 Unknown COMPLETE BLOOD COUNT 52403 LY % 35.5 % 1 Unknown COMPLETE BLOOD COUNT 48206 MON % 10.2 % 1 Unknown COMPLETE BLOOD COUNT 64521 EOS % 3.3 % 1 Unknown COMPLETE BLOOD COUNT 94703 BASO % 0.6 % 1 Unknown COMPLETE BLOOD COUNT 79488 RDW 13.7 % 1 Unknown COMPLETE BLOOD COUNT 24088 ABS CINTHYA 3.23 10e9/L 011 Unknown COMPLETE BLOOD COUNT 48472 ABS LYMPH 2.27 10e9/L 011 Unknown COMPLETE BLOOD COUNT 00959 ABS MONO 0.65 10e9/L 011 Unknown COMPLETE BLOOD COUNT 80548 ABS EOS 0.21 10e9/L 011 Unknown COMPLETE BLOOD COUNT 46096 ABS BASO 0.04 10e9/L 011 Unknown COMPLETE BLOOD COUNT 61785 RDW-SD 45.3 fL 1 Unknown GFR CALC [id number] GFR AA >60 ML/MIN 07/06/2010 Unknown GFR CALC [id number] GFR NON-AA 53.0L ML/MIN 07/06/2010 Unkno wn FREE T4 48954 FREE T4 1.20 NG/DL 07/06/2010 Unknown COMPREHENSIVE METABOLIC 80063 AST 17 U/L 2010 Unknown COMPREHENSIVE METABOLIC 78876 ALT 9 IU/L 2010 Unknown COMPREHENSIVE METABOLIC 63977 BUN 16 MG/DL 2010 Unknown COMPREHENSIVE METABOLIC 41102 ALBUMIN 4.0 GM/DL 2010 Unknown COMPREHENSIVE METABOLIC 86479 CHLORIDE 108 MMOL/L 07/06 Unknown COMPREHENSIVE METABOLIC 74316 BILI TOT 0.5 MG/DL 2010 Unknown COMPREHENSIVE METABOLIC 50848 ALK PHOS 76 U/L 2010 Unknown COMPREHENSIVE METABOLIC 34401 SODIUM 139 MMOL/L 07/06 Unknown COMPREHENSIVE METABOLIC 25500 CREATININE 1.02 MG/DL 04/2010 Unknown COMPREHENSIVE METABOLIC 95245 CALCIUM 9.2 MG/DL 2010 Unknown COMPREHENSIVE METABOLIC 16084 POTASSIUM 4.5 MMOL/L 07/06 Unknown COMPREHENSIVE METABOLIC 91043 PROT TOT 6.1 GM/DL 2010 Unknown COMPREHENSIVE METABOLIC 31382 Glucose 93 MG/DL 2010 Unknown COMPREHENSIVE METABOLIC 92466 BICARB 26 MMOL/L 2010 Unknown COMPREHENSIVE METABOLIC 35177 ANION GAP 5 MEQ/L 2010 Unknown LIPID GROUP 31383 HDL TEST 46 MG/DL 07/06/2010 Unknown LIPID GROUP 59858 TRIG 102 MG/DL 07/06/2010 Unknown LIPID GROUP 68953 TEST LDL 88 MG/DL 07/06/2010 Unknown LIPID GROUP 49355 CHOL 154 MG/DL 07/06/2010 Unknown LIPID GROUP 39808 RCHOL/HDL 3.35 RATIO 07/06/2010 Unknow n Procedures Procedure Codes Date ROUTINE VENIPUNCTURE CPT-4: 50479 01/23/2019 LIPID PANEL CPT-4: 36997 01/23/2019 FLU VACC PRSV FREE INC ANTIG 65 AND OLDER CPT-4: 46082 12/26/2018 FLU VACC PRSV FREE INC ANTIG 65 AND OLDER CPT-4: 69403 12/26/2018 ADMIN INFLUENZA VIRUS VAC CPT-4: G0008 12/26/2018 COMPREHEN METABOLIC PANEL CPT-4: 89440 12/15/2018 ROUTINE VENIPUNCTURE CPT-4: 09730 12/15/2018 ROUTINE VENIPUNCTURE CPT-4: 06594 08/14/2018 ASSAY THYROID STIM HORMONE CPT-4: 19677 08/14/2018 COMPREHEN METABOLIC PANEL CPT-4: 33343 08/14/2018 COMPLETE CBC W/AUTO DIFF WBC CPT-4: 19983 08/14/2018 URINALYSIS NONAUTO W/O SCOPE CPT-4: 69176 05/10/2018 URINE CULTURE/ COLONY COUNT CPT-4: 52507 05/10/2018 URINE CULTURE/ COLONY COUNT CPT-4: 53752 12/06/2017 ROUTINE VENIPUNCTURE CPT-4: 74100 11/30/2017 ASSAY OF FREE THYROXINE CPT-4: 44768 11/30/2017 ASSAY THYROID STIM HORMONE CPT-4: 81516 11/30/2017 COMPLETE CBC W/AUTO DIFF WBC CPT-4: 97223 11/30/2017 METABOLIC PANEL TOTAL CA CPT-4: 79006 11/30/2017 FLU VACC PRSV FREE INC ANTIG 65 AND OLDER CPT-4: 46436 11/22/2017 ASSAY, GLUCOSE, BLOOD QUANT CPT-4: 60875 11/22/2017 ADMIN INFLUENZA VIRUS VAC CPT-4: G0008 11/22/2017 ROUTINE VENIPUNCTURE CPT-4: 21890 09/27/2017 COMPREHEN METABOLIC PANEL CPT-4: 69117 09/27/2017 COMPLETE CBC W/AUTO DIFF WBC CPT-4: 85579 09/27/2017 A1C HPLC CPT-4: 81871 09/27/2017 ASSAY OF TROPONIN QUANT CPT-4: 22179 09/27/2017 LIPID PANEL CPT-4: 82001 09/27/2017 THER/PROPH/DIAG INJ SC/IM CPT-4: 03599 05/30/2017 TRIAMCINOLONE ACET INJ NOS CPT-4: J3301 05/30/2017 URINALYSIS NONAUTO W/O SCOPE CPT-4: 43710 04/18/2017 URINE CULTURE/ COLONY COUNT CPT-4: 97747 04/18/2017 FLU VACC PRSV FREE INC ANTIG 65 AND OLDER CPT-4: 05170 12/10/2016 ADMIN INFLUENZA VIRUS VAC CPT-4: G0008 12/10/2016 ROUTINE VENIPUNCTURE CPT-4: 73357 11/01/2016 COMPREHEN METABOLIC PANEL CPT-4: 60583 11/01/2016 COMPLETE CBC W/AUTO DIFF WBC CPT-4: 69682 11/01/2016 LIPID PANEL CPT-4: 41250 11/01/2016 A1C HPLC CPT-4: 26407 11/01/2016 ASSAY THYROID STIM HORMONE CPT-4: 52145 11/01/2016 ROUTINE VENIPUNCTURE CPT-4: 70633 05/13/2016 ASSAY THYROID STIM HORMONE CPT-4: 12313 05/13/2016 COMPREHEN METABOLIC PANEL CPT-4: 26342 05/13/2016 COMPLETE CBC W/AUTO DIFF WBC CPT-4: 47391 05/13/2016 A1C HPLC CPT-4: 38337 05/13/2016 FLU VACC PRSV FREE INC ANTIG 65 AND OLDER CPT-4: 99219 12/12/2015 ADMIN INFLUENZA VIRUS VAC CPT-4: G0008 12/12/2015 ROUTINE VENIPUNCTURE CPT-4: 33537 11/25/2015 ASSAY OF FREE THYROXINE CPT-4: 96195 11/25/2015 ASSAY THYROID STIM HORMONE CPT-4: 73592 11/25/2015 COMPREHEN METABOLIC PANEL CPT-4: 33848 11/25/2015 COMPLETE CBC W/AUTO DIFF WBC CPT-4: 84469 11/25/2015 LIPID PANEL CPT-4: 29088 11/25/2015 A1C HPLC CPT-4: 85723 11/25/2015 URINALYSIS NONAUTO W/O SCOPE CPT-4: 90747 05/21/2015 ROUTINE VENIPUNCTURE CPT-4: 76145 02/19/2015 METABOLIC PANEL TOTAL CA CPT-4: 20446 02/19/2015 PRESCRIP TRANSMIT VIA ERX SY CPT-4: G8553 02/19/2015 FLU VACC PRSV FREE INC ANTIG 65 AND OLDER CPT-4: 84062 12/20/2014 ADMIN INFLUENZA VIRUS VAC CPT-4: G0008 12/20/2014 URINALYSIS NONAUTO W/O SCOPE CPT-4: 67156 11/19/2014 URINE CULTURE/ COLONY COUNT CPT-4: 31370 11/19/2014 ROUTINE VENIPUNCTURE CPT-4: 78868 11/14/2014 ASSAY OF FREE THYROXINE CPT-4: 29652 11/14/2014 ASSAY THYROID STIM HORMONE CPT-4: 66052 11/14/2014 COMPREHEN METABOLIC PANEL CPT-4: 32086 11/14/2014 COMPLETE CBC W/AUTO DIFF WBC CPT-4: 90600 11/14/2014 LIPID PANEL CPT-4: 49767 11/14/2014 A1C HPLC CPT-4: 71259 11/14/2014 CERUM REMOVAL CPT-4: 02058 09/27/2014 PRESCRIP TRANSMIT VIA ERX SY CPT-4: G8553 07/11/2014 FLUZONE, 5ML (Medicare) CPT-4: Q2038 12/21/2013 ADMIN INFLUENZA VIRUS VAC CPT-4: G0008 12/21/2013 PRESCRIP TRANSMIT VIA ERX SY CPT-4: G8553 10/17/2013 PRESCRIP TRANSMIT VIA ERX SY CPT-4: G8553 09/24/2013 PRESCRIP TRANSMIT VIA ERX SY CPT-4: G8553 05/31/2013 ROUTINE VENIPUNCTURE CPT-4: 86701 03/28/2013 ASSAY OF FREE THYROXINE CPT-4: 26956 03/28/2013 ASSAY THYROID STIM HORMONE CPT-4: 46560 03/28/2013 COMPREHEN METABOLIC PANEL CPT-4: 81908 03/28/2013 COMPLETE CBC W/AUTO DIFF WBC CPT-4: 13068 03/28/2013 LIPID PANEL CPT-4: 40311 03/28/2013 A1C HPLC CPT-4: 15132 03/28/2013 VITAMIN B 12 FOLIC ACID CPT-4: 09630|96225 03/28/2013 PRESCRIP TRANSMIT VIA ERX SY CPT-4: G8553 03/26/2013 PRESCRIP TRANSMIT VIA ERX SY CPT-4: G8553 12/19/2012 FLUZONE, 5ML (Medicare) CPT-4: Q2038 11/27/2012 ADMIN INFLUENZA VIRUS VAC CPT-4: G0008 11/27/2012 PRESCRIP TRANSMIT VIA ERX SY CPT-4: G8553 10/04/2012 PRESCRIP TRANSMIT VIA ERX SY CPT-4: G8553 07/14/2012 ROUTINE VENIPUNCTURE CPT-4: 44932 02/23/2012 ASSAY OF FREE THYROXINE CPT-4: 66081 02/23/2012 ASSAY THYROID STIM HORMONE CPT-4: 86696 02/23/2012 COMPREHEN METABOLIC PANEL CPT-4: 10187 02/23/2012 COMPLETE CBC W/AUTO DIFF WBC CPT-4: 29337 02/23/2012 LIPID PANEL CPT-4: 31578 02/23/2012 A1C GLYCOSYLATED HEMOGLOBIN TEST CPT-4: 19337 012 CERUM REMOVAL CPT-4: 71200 02/22/2012 PRESCRIP TRANSMIT VIA ERX SY CPT-4: G8553 02/22/2012 PRESCRIP TRANSMIT VIA ERX SY CPT-4: G8553 12/15/2011 FLUZONE, 5ML (Medicare) CPT-4: Q2038 12/02/2011 ADMIN INFLUENZA VIRUS VAC CPT-4: G0008 12/02/2011 ASSAY, GLUCOSE, BLOOD QUANT CPT-4: 63219 09/21/2011 URINALYSIS NONAUTO W/O SCOPE CPT-4: 71641 09/16/2011 URINE CULTURE/ COLONY COUNT CPT-4: 11849 09/16/2011 ROUTINE VENIPUNCTURE CPT-4: 55600 09/15/2011 ASSAY OF FREE THYROXINE CPT-4: 69099 09/15/2011 ASSAY THYROID STIM HORMONE CPT-4: 93040 09/15/2011 COMPREHEN METABOLIC PANEL CPT-4: 33255 09/15/2011 COMPLETE CBC W/AUTO DIFF WBC CPT-4: 64199 09/15/2011 LIPID PANEL CPT-4: 11384 09/15/2011 ASSAY OF INSULIN CPT-4: 93644 09/15/2011 A1C GLYCOSYLATED HEMOGLOBIN TEST CPT-4: 63759 012 DRAIN/INJECT JOINT/BURSA CPT-4: 21760 08/16/2011 METHYLPREDNISOLONE 40 MG INJ CPT-4: J1030 08/16/2011 TRIAMCINOLONE ACET INJ NOS CPT-4: J3301 08/16/2011 PRESCRIP TRANSMIT VIA ERX SY CPT-4: G8553 08/03/2011 PRESCRIP TRANSMIT VIA ERX SY CPT-4: G8553 07/26/2011 METHYLPREDNISOLONE 40 MG INJ CPT-4: J1030 06/28/2011 DRAIN/INJECT JOINT/BURSA CPT-4: 34395 06/28/2011 TRIAMCINOLONE ACET INJ NOS CPT-4: J3301 06/28/2011 PRESCRIP TRANSMIT VIA ERX SY CPT-4: G8553 06/28/2011 ROUTINE VENIPUNCTURE CPT-4: 89539 04/01/2011 ASSAY OF FREE THYROXINE CPT-4: 23948 04/01/2011 ASSAY THYROID STIM HORMONE CPT-4: 05188 04/01/2011 COMPREHEN METABOLIC PANEL CPT-4: 12380 04/01/2011 COMPLETE CBC W/AUTO DIFF WBC CPT-4: 59903 04/01/2011 LIPID PANEL CPT-4: 91436 04/01/2011 PRESCRIP TRANSMIT VIA ERX SY CPT-4: G8553 03/31/2011 CERUM REMOVAL CPT-4: 72908 02/11/2011 PRESCRIP TRANSMIT VIA ERX SY CPT-4: G8553 02/11/2011 FLUZONE, 5ML (Medicare) CPT-4: Q2038 12/09/2010 ADMIN INFLUENZA VIRUS VAC CPT-4: G0008 12/09/2010 PRESCRIP TRANSMIT VIA ERX SY CPT-4: G8553 10/15/2010 URINALYSIS NONAUTO W/O SCOPE CPT-4: 72311 09/29/2010 URINE CULTURE/ COLONY COUNT CPT-4: 87623 09/29/2010 CUR TOBACCO NON-USER CPT-4: G8457 09/29/2010 ROUTINE VENIPUNCTURE CPT-4: 11433 07/06/2010 COMPLETE CBC W/AUTO DIFF WBC CPT-4: 90826 07/06/2010 COMPREHEN METABOLIC PANEL CPT-4: 57363 07/06/2010 LIPID PANEL CPT-4: 27253 07/06/2010 ASSAY THYROID STIM HORMONE CPT-4: 18905 07/06/2010 ASSAY OF FREE THYROXINE CPT-4: 31793 07/06/2010 PRESCRIP TRANSMIT VIA ERX SY CPT-4: G8553 07/02/2010 INJ TRIGGER POINT 1/2 MUSCL CPT-4: 17752 04/06/2010 TRIAMCINOLONE ACET INJ NOS CPT-4: J3301 04/06/2010 METHYLPREDNISOLONE 40 MG INJ CPT-4: J1030 04/06/2010 THER/PROPH/DIAG INJ SC/IM CPT-4: 82044 04/01/2010 KETOROLAC TROMETHAMINE INJ CPT-4: J1885 04/01/2010 PRESCRIP TRANSMIT VIA ERX SY CPT-4: G8553 01/22/2010 FLU VACCINE 3 YRS & > IM UP 64 CPT-4: 40660 0 ADMIN INFLUENZA VIRUS VAC CPT-4: G0008 12/10/2009 URINALYSIS NONAUTO W/O SCOPE CPT-4: 34274 12/02/2009 URINE CULTURE/ COLONY COUNT CPT-4: 27542 12/02/2009 PRESCRIP TRANSMIT VIA ERX SY CPT-4: G8553 12/02/2009 THER/PROPH/DIAG INJ SC/IM CPT-4: 69046 09/10/2009 VITAMIN B12 INJECTION CPT-4: J3420 09/10/2009 THER/PROPH/DIAG INJ SC/IM CPT-4: 13488 08/11/2009 VITAMIN B12 INJECTION CPT-4: J3420 08/11/2009 ROUTINE VENIPUNCTURE CPT-4: 03414 06/10/2009 Vital Signs Date Vital 03/13/2019 Blood Pressure 1: 144/82 Code: 8480-6 art Rate 1: 56 bpm 03/13/2019 Blood [...] 1: 142/60 Code: 8480-6 BMI: 38.2 Code: 61416-6 Heart Rate 1: 48 bpm Height: 5'2" Respiratory Rate: 20 bpm SpO2: 98% Tempera ture: 36.7 (C) / 98.1 (F) Weight: 212 lbs 01/10/2018 Blood Pressure 1: 142/64 Code: 8480-6 BMI: 38.5 Code: 17569-4 Heart Rate 1: 52 bpm Height: 5'2" Respiratory Rate: 22 bpm SpO2: 96% Tempera ture: 36.1 (C) / 96.9 (F) Weight: 214 lbs 12/06/2017 Blood Pressure 1: 124/80 Code: 8480-6 BMI: 38.3 Code: 08301-2 Heart Rate 1: 68 bpm Height: 5'2" Respiratory Rate: 20 bpm Temperature: 36 .3 (C) / 97.4 (F) Weight: 213 lbs 11/22/2017 Blood Pressure 1: 132/78 Code: 8480-6 BMI: 37.6 Code: 04294-8 Heart Rate 1: 68 bpm Height: 5'2" Respiratory Rate: 20 bpm SpO2: 97% Tempera ture: 36.8 (C) / 98.2 (F) Weight: 209 lbs 10/20/2017 Blood Pressure 1: 150/76 Code: 8480-6 BMI: 38.5 Code: 49630-6 Heart Rate 1: 64 bpm Height: 5'2" Respiratory Rate: 20 bpm SpO2: 97% Tempera ture: 36.2 (C) / 97.2 (F) Weight: 214 lbs 09/27/2017 Blood Pressure 1: 122/74 Code: 8480-6 BMI: 38.2 Code: 91346-3 Heart Rate 1: 64 bpm Height: 5'2" Respiratory Rate: 18 bpm SpO2: 96% Tempera ture: 35.8 (C) / 96.4 (F) Weight: 212 lbs 08/16/2017 Blood Pressure 1: 124/78 Code: 8480-6 BMI: 37.8 Code: 97074-6 Heart Rate 1: 76 bpm Height: 5'2" Respiratory Rate: 20 bpm Temperature: 36 .8 (C) / 98.3 (F) Weight: 210 lbs 07/07/2017 Blood Pressure 1: 136/70 Code: 8480-6 BMI: 38.0 Code: 28371-4 Heart Rate 1: 68 bpm Height: 5'2" Respiratory Rate: 20 bpm SpO2: 97% Tempera ture: 36.8 (C) / 98.2 (F) Weight: 211 lbs 05/30/2017 Blood Pressure 1: 140/65 Code: 8480-6 Heart Rate 1: 75 bpm Respiratory Rate: 24 bpm SpO2: 95% Temperature: 37.0 (C) / 98.6 (F) We ight: 211 lbs 04/18/2017 Blood Pressure 1: 154/70 Code: 8480-6 BMI: 37.6 Code: 95257-7 Heart Rate 1: 76 bpm Height: 5'2" Respiratory Rate: 20 bpm SpO2: 98% Tempera ture: 36.9 (C) / 98.5 (F) Weight: 209 lbs 10/25/2016 Blood Pressure 1: 156/70 Code: 8480-6 BMI: 37.1 Code: 44853-5 Heart Rate 1: 72 bpm Height: 5'2" Respiratory Rate: 20 bpm SpO2: 97% Tempera ture: 37.0 (C) / 98.6 (F) Weight: 206 lbs 09/20/2016 Blood Pressure 1: 152/78 Code: 8480-6 BMI: 36.8 Code: 59518-0 Heart Rate 1: 78 bpm Height: 5'2" Respiratory Rate: 20 bpm SpO2: 98% Tempera ture: 36.1 (C) / 97.0 (F) Weight: 204 lbs 05/12/2016 Blood Pressure 1: 142/70 Code: 8480-6 BMI: 36.9 Code: 38388-0 Heart Rate 1: 64 bpm Height: 5'2" [...] 1: 122/64 Code: 8480-6 BMI: 39.1 Code: 60090-1 Heart Rate 1: 76 bpm Height: 5'2" Respiratory Rate: 20 bpm Temperature: 36 .8 (C) / 98.2 (F) Weight: 217 lbs 05/21/2015 Blood Pressure 1: 144/70 Code: 8480-6 BMI: 39.4 Code: 78061-3 Heart Rate 1: 76 bpm Height: 5'2" Respiratory Rate: 20 bpm Temperature: 36 .6 (C) / 97.9 (F) Weight: 219 lbs 02/19/2015 Blood Pressure 1: 152/60 Code: 8480-6 BMI: 39.6 Code: 41276-7 Heart Rate 1: 84 bpm Height: 5'2" Respiratory Rate: 20 bpm Temperature: 37 .0 (C) / 98.6 (F) Weight: 220 lbs 11/13/2014 Blood Pressure 1: 146/76 Code: 8480-6 BMI: 39.8 Code: 93519-3 Heart Rate 1: 88 bpm Height: 5'2" Respiratory Rate: 20 bpm Temperature: 37 .0 (C) / 98.6 (F) Weight: 221 lbs 09/27/2014 Blood Pressure 1: 132/70 Code: 8480-6 BMI: 39.1 Code: 63405-3 Heart Rate 1: 88 bpm Height: 5'2" Respiratory Rate: 20 bpm Temperature: 36 .4 (C) / 97.6 (F) Weight: 217 lbs 07/11/2014 Blood Pressure 1: 132/66 Code: 8480-6 BMI: 39.9 Code: 81664-1 Heart Rate 1: 72 bpm Height: 5'2" Respiratory Rate: 20 bpm Temperature: 36 .9 (C) / 98.4 (F) Weight: 218 lbs 05/23/2014 Blood Pressure 1: 136/80 Code: 8480-6 Heart Rate 1: 76 bpm Respiratory Rate: 20 bpm Temperature: 36.7 (C) / 98.0 (F) Weight: 224 lbs 03/20/2014 Blood Pressure 1: 134/78 Code: 8480-6 BMI: 39.7 Code: 47415-1 Heart Rate 1: 84 bpm Height: 5'2" Respiratory Rate: 20 bpm Temperature: 36 .7 (C) / 98.0 (F) Weight: 217 lbs 10/17/2013 Blood Pressure 1: 146/78 Code: 8480-6 BMI: 39.5 Code: 93250-2 Heart Rate 1: 82 bpm Height: 5'2" Respiratory Rate: 18 bpm Temperature: 35 .6 (C) / 96.1 (F) Weight: 216 lbs 09/24/2013 Blood Pressure 1: 134/70 Code: 8480-6 BMI: 37.9 Code: 95905-7 Heart Rate 1: 80 bpm Height: 5'3" Respiratory Rate: 20 bpm Temperature: 36 .8 (C) / 98.2 (F) Weight: 214 lbs 05/31/2013 Blood Pressure 1: 132/70 Code: 8480-6 BMI: 37.6 Code: 85241-3 Heart Rate 1: 80 bpm Height: 5'3" Respiratory Rate: 20 bpm Temperature: 36 .8 (C) / 98.3 (F) Weight: 212 lbs 03/26/2013 Blood Pressure 1: 116/74 Code: 8480-6 Heart Rate 1: 68 bpm Respiratory Rate: 20 bpm Temperature: 36.2 (C) / 97.1 (F) Weight: 212 lbs 12/19/2012 Blood Pressure 1: 132/82 Code: 8480-6 BMI: 37.4 Code: 39761-6 Heart Rate 1: 76 bpm Height: 5'3" Respiratory Rate: 20 bpm Temperature: 36 .7 (C) / 98.0 (F) Weight: 211 lbs 12/04/2012 Blood Pressure 1: 130/76 Code: 8480-6 He art Rate 1: 78 bpm 11/27/2012 Blood Pressure 1: 140/82 Code: 8480-6 BMI: 36.8 Code: 30532-4 Heart Rate 1: 66 bpm Height: 5'3" Respiratory Rate: 20 bpm Temperature: 36 .1 (C) / 96.9 (F) Weight: 208 lbs 10/04/2012 Blood Pressure 1: 138/80 Code: 8480-6 BMI: 36.4 Code: 07004-9 Heart Rate 1: 72 bpm Height: 5'4" Respiratory Rate: 20 bpm Temperature: 36 .7 (C) / 98.0 (F) Weight: 212 lbs 07/27/2012 Blood Pressure 1: 124/70 Code: 8480-6 BMI: 36.9 Code: 32279-5 Heart Rate 1: 60 bpm Height: 5'4" Temperature: 36.1 (C) / 97.0 (F) Weight: 215 lbs 07/14/2012 Blood Pressure 1: 132/86 Code: 8480-6 BMI: 36.9 Code: 45622-8 Heart Rate 1: 76 bpm Height: 5'4" Respiratory Rate: 20 bpm Temperature: 36 .8 (C) / 98.2 (F) Weight: 215 lbs 06/08/2012 Blood Pressure 1: 134/82 Code: 8480-6 BMI: 36.6 Code: 95012-1 Heart Rate 1: 72 bpm Height: 5'4" Respiratory Rate: 20 bpm Temperature: 36 .3 (C) / 97.4 (F) Weight: 213 lbs 02/22/2012 Blood Pressure 1: 142/80 Code: 8480-6 BMI: 37.1 Code: 96070-1 Heart Rate 1: 76 bpm Height: 5'4" Respiratory Rate: 20 bpm Temperature: 36 .8 (C) / 98.3 (F) Weight: 216 lbs 12/28/2011 Blood Pressure 1: 128/68 Code: 8480-6 BMI: 37.6 Code: 05098-6 Heart Rate 1: 72 bpm Height: 5'4" [...] 1: 128/78 Code: 8480-6 BMI: 38.1 Code: 49881-5 Heart Rate 1: 84 bpm Height: 5'4" Respiratory Rate: 20 bpm Temperature: 36 .9 (C) / 98.4 (F) Weight: 222 lbs 08/16/2011 Blood Pressure 1: 138/80 Code: 8480-6 BMI: 37.9 Code: 59455-0 Heart Rate 1: 74 bpm Height: 5'4" Temperature: 36.1 (C) / 97.0 (F) Weight: 221 lbs 08/03/2011 Blood Pressure 1: 126/78 Code: 8480-6 BMI: 38.4 Code: 58369-6 Heart Rate 1: 72 bpm Height: 5'4" Respiratory Rate: 20 bpm Temperature: 36 .7 (C) / 98.0 (F) Weight: 224 lbs 07/26/2011 Blood Pressure 1: 138/72 Code: 8480-6 BMI: 38.4 Code: 82503-3 Heart Rate 1: 72 bpm Height: 5'4" Respiratory Rate: 20 bpm Temperature: 36 .6 (C) / 97.9 (F) Weight: 224 lbs 06/28/2011 Blood Pressure 1: 122/78 Code: 8480-6 BMI: 38.8 Code: 66692-4 Heart Rate 1: 88 bpm Height: 5'4" Respiratory Rate: 20 bpm Temperature: 36 .6 (C) / 97.8 (F) Weight: 226 lbs 03/31/2011 Blood Pressure 1: 116/60 Code: 8480-6 BMI: 38.1 Code: 63450-5 Heart Rate 1: 92 bpm Height: 5'4" Respiratory Rate: 20 bpm Temperature: 36 .8 (C) / 98.2 (F) Weight: 222 lbs 02/11/2011 Blood Pressure 1: 118/62 Code: 8480-6 BMI: 37.9 Code: 62461-8 Heart Rate 1: 80 bpm Height: 5'4" Temperature: 36.5 (C) / 97.7 (F) Weight: 221 lbs 10/15/2010 Blood Pressure 1: 132/70 Code: 8480-6 Heart Rate 1: 84 bpm Respiratory Rate: 20 bpm Temperature: 36.7 (C) / 98.0 (F) Weight: 221 lbs 09/29/2010 Blood Pressure 1: 114/72 Code: 8480-6 BMI: 37.6 Code: 70790-7 Heart Rate 1: 76 bpm Height: 5'4" [...] 1: 120/70 Code: 8480-6 BMI: 38.3 Code: 41611-2 Heart Rate 1: 88 bpm Height: 5'5" [...] but had more that day. While at [employer] began to feel very ill and became [...] 06/09/2009 Encounters Encounter Performer Location Codes Date ([id number]) OFFICE/OUTPATIENT VISIT EST Diagnosis: Essential hypertension[ICD10: I10] Diagnosis: Palpitations[ICD10: R00.2] Diagnosis: Stress reaction[ICD10: F43.0] Vikki GUAMAN DO [facility] CPT-4: 79257 03/13/2019 ([id number]) NURSE/OUTPATIENT VISIT EST Diagnosis: Mixed hyperlipidemia[ICD10: E78.2] Vikki GUAMAN DO [facility] CPT-4: 87624 01/23/2019 ([id number]) NURSE/OUTPATIENT VISIT EST Diagnosis: FLU VACCINE[ICD10: Z23] Vikki BALL DO [facility] CPT-4: 72738 12/26/2018 ([id number]) NURSE/OUTPATIENT VISIT EST Diagnosis: Chronic kidney disease, stage 1[ICD10: N18.1] Vikki GUAMAN DO [facility] CPT-4: 97481 12/15/2018 ([id number]) OFFICE/OUTPATIENT VISIT EST Diagnosis: Acute serous otitis media, left ear[ICD10: H65.02] Jennifer GUAMAN DO [facility] CPT-4: 66165 11/07/2018 ([id number]) OFFICE/OUTPATIENT VISIT EST Diagnosis: Essential (primary) hypertension[ICD10: I10] Diagnosis: 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] Diagnosis: Hypoglycemia, unspecified[ICD10: E16.2] Diagnosis: Other fatigue[ICD10: R53.83] Diagnosis: Urinary tract infection, site not specified[ICD10: N39.0] Vikki GUAMAN DO [facility] CPT-4: 24877 08/14/2018 ([id number]) OFFICE/OUTPATIENT VISIT EST Diagnosis: Essential (primary) hypertension[ICD10: I10] Diagnosis: Gastro-esophageal reflux disease without esophagitis[ICD10: K21.9] Diagnosis: Urinary tract infection, site not specified[ICD10: N39.0] Vikki GUAMAN DO [facility] CPT-4: 14723 05/10/2018 ([id number]) OFFICE/OUTPATIENT VISIT EST Diagnosis: Gastro-esophageal reflux disease without esophagitis[ICD10: K21.9] Diagnosis: Epigastric pain[ICD10: R10.13] Vikki GUAMAN DO [facility] CPT-4: 78040 02/14/2018 ([id number]) OFFICE/OUTPATIENT VISIT EST Diagnosis: 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] Diagnosis: Essential (primary) hypertension[ICD10: I10] Diagnosis: Generalized anxiety disorder[ICD10: F41.1] Diagnosis: Gastro-esophageal reflux disease without esophagitis[ICD10: K21.9] Vikki GUAMAN DO [facility] CPT-4: 90757 01/10/2018 OFFICE/OUTPATIENT VISIT EST Diagnosis: Gastro-esophageal reflux disease without esophagitis[ICD10: K21.9] Diagnosis: Palpitations[ICD10: R00.2] Diagnosis: Urinary tract infection, site not specified[ICD10: N39.0] Diagnosis: Generalized anxiety disorder[ICD10: F41.1] Vikki GUAMAN [employer] [facility] CPT-4: 84847 12/06/2017 ([id number]) NURSE/OUTPATIENT VISIT EST Diagnosis: 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] Diagnosis: Hypoglycemia, unspecified[ICD10: E16.2] Diagnosis: Dizziness and giddiness[ICD10: R42] Diagnosis: Occlusion and stenosis of bilateral carotid arteries[ICD10: I65.23] Vikki GUAMAN DO [facility] CPT-4: 63539 11/30/2017 OFFICE/OUTPATIENT VISIT EST Diagnosis: Epigastric pain[ICD10: R10.13] Diagnosis: Generalized anxiety disorder[ICD10: F41.1] Diagnosis: FLU VACCINE[ICD10: Z23] Vikki BALL [employer] [facility] CPT-4: 19929 11/22/2017 ([id number]) OFFICE/OUTPATIENT VISIT EST Diagnosis: Essential (primary) hypertension[ICD10: I10] Diagnosis: Hypoglycemia, unspecified[ICD10: E16.2] Diagnosis: Gastro-esophageal reflux disease without esophagitis[ICD10: K21.9] Vikki GUAMAN [employer] [facility] CPT-4: 73726 10/20/2017 ([id number]) OFFICE/OUTPATIENT VISIT EST Diagnosis: Dizziness and giddiness[ICD10: R42] Jennifer GUAMAN [facility] CPT-4: 63646 09/27/2017 ([id number]) OFFICE/OUTPATIENT VISIT EST Diagnosis: Cervicalgia[ICD10: M54.2] Diagnosis: Other spondylosis with radiculopathy, cervical region[ICD10: M47.22] Vikki GUAMAN [facility] CPT-4: 48038 08/16/2017 ([id number]) OFFICE/OUTPATIENT VISIT EST Diagnosis: Hypoglycemia, unspecified[ICD10: E16.2] Diagnosis: Other spondylosis with radiculopathy, cervical region[ICD10: M47.22] Diagnosis: Vertigo of central origin, 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] Diagnosis: 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] Vikki Ciscobhavya KEARNEYAKUA GUAMAN [facility] CPT-4: 31874 07/07/2017 ([id number]) OFFICE/OUTPATIENT VISIT EST Diagnosis: Benign paroxysmal vertigo, bilateral[ICD10: H81.13] Diagnosis: Otalgia, bilateral[ICD10: H92.03] Jennifer GUAMAN [facility] CPT-4: 30172 05/30/2017 ([id number]) OFFICE/OUTPATIENT VISIT EST Diagnosis: Low back pain[ICD10: M54.5] Diagnosis: Radiculopathy, lumbosacral region[ICD10: M54.17] Diagnosis: Left lower quadrant pain[ICD10: R10.32] Vikki Ciscobhavya CRISOSTOMO AlejandraSujata GL[facility]IS [facility] CPT-4: 30247 04/18/2017 ([id number]) OFFICE/OUTPATIENT VISIT EST Diagnosis: FLU VACCINE[ICD10: Z23] Vikki KEARNEYQUELINE Alyssa BALL [facility] CPT-4: 57066 12/10/2016 ([id number]) OFFICE/OUTPATIENT VISIT EST Diagnosis: Mixed hyperlipidemia[ICD10: E78.2] Diagnosis: Essential (primary) hypertension[ICD10: I10] Diagnosis: 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] Diagnosis: Impaired fasting glucose[ICD10: R73.01] Diagnosis: Other fatigue[ICD10: R53.83] Vikki GUAMAN [facility] CPT-4: 91837 11/01/2016 ([id number]) OFFICE/OUTPATIENT VISIT EST Diagnosis: Pain in thoracic spine[ICD10: M54.6] Diagnosis: Other intervertebral disc degeneration, 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] Vikki GUAMAN [facility] CPT-4: 87491 10/25/2016 ([id number]) OFFICE/OUTPATIENT VISIT EST Diagnosis: Left lower quadrant pain[ICD10: R10.32] Diagnosis: Low back pain[ICD10: M54.5] Vikki RUBI [facility] CPT-4: 31289 09/20/2016 ([id number]) OFFICE/OUTPATIENT VISIT EST Diagnosis: Mixed hyperlipidemia[ICD10: E78.2] Diagnosis: Essential (primary) hypertension[ICD10: I10] Diagnosis: Hypoglycemia, unspecified[ICD10: E16.2] Vikki GUAMAN [facility] CPT-4: 72586 05/13/2016 ([id number]) OFFICE/OUTPATIENT VISIT EST Diagnosis: Impaired fasting glucose[ICD10: R73.01] Diagnosis: Mastodynia[ICD10: N64.4] Diagnosis: Mixed hyperlipidemia[ICD10: E78.2] Diagnosis: Essential (primary) hypertension[ICD10: I10] Diagnosis: Other fatigue[ICD10: R53.83] Vikki GUAMAN [facility] CPT-4: 12684 05/12/2016 ([id number]) OFFICE/OUTPATIENT VISIT EST Diagnosis: Acute upper respiratory infection, unspecified[ICD10: J06.9] Yue Moya [facility] CPT-4: 03001 03/18/2016 ([id number]) OFFICE/OUTPATIENT VISIT EST Diagnosis: Acute mastoiditis without complications, right ear[ICD10: H70.001] Vikki GUAMAN [facility] CPT-4: 68550 02/06/2016 ([id number]) OFFICE/OUTPATIENT VISIT EST Diagnosis: FLU VACCINE[ICD10: Z23] Vikki BALL DO [facility] CPT-4: 34237 12/12/2015 ([id number]) OFFICE/OUTPATIENT VISIT EST Diagnosis: Mixed hyperlipidemia[ICD10: E78.2] Diagnosis: Essential (primary) hypertension[ICD10: I10] Diagnosis: 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] Diagnosis: Impaired fasting glucose[ICD10: R73.01] Vikki KEELUTHER Alyssa GUAMAN DO [facility] CPT-4: 88413 11/25/2015 ([id number]) OFFICE/OUTPATIENT VISIT EST Diagnosis: Constipation, unspecified[ICD10: K59.00] Vikki GUAMAN DO [facility] CPT-4: 73411 08/26/2015 ([id number]) OFFICE/OUTPATIENT VISIT EST Diagnosis: Essential (primary) hypertension[ICD10: I10] Diagnosis: Mixed hyperlipidemia[ICD10: E78.2] Diagnosis: Chronic kidney disease, stage 1[ICD10: N18.1] Vikki GUAMAN DO [facility] CPT-4: 63916 05/21/2015 ([id number]) OFFICE/OUTPATIENT VISIT EST Diagnosis: Muscle weakness (generalized)[ICD10: M62.81] Diagnosis: Dizziness and giddiness[ICD10: R42] Diagnosis: Essential (primary) hypertension[ICD10: I10] Diagnosis: History of falling[ICD10: Z91.81] Vikkiluther CARNEY Deidra RobertsSujata GLENIS CH[facility] CPT-4: 61004 02/19/2015 ([id number]) OFFICE/OUTPATIENT VISIT EST Diagnosis: FLU VACCINE[ICD10: Z23] Vikki Peckfunmilayosakshi CORTEZVIKKI Alyssa BALL [employer] [facility] CPT-4: 31860 12/20/2014 ([id number]) OFFICE/OUTPATIENT VISIT EST Diagnosis: Acute renal failure[ICD9: 584.9] Diagnosis: POLYURIA[ICD9: 788.42] Vikki KEARNEYQUELINE AlejandraSujata MATY Rees [facility]igh[facility] CPT-4: 76698 11/19/2014 ([id number]) OFFICE/OUTPATIENT VISIT EST Diagnosis: HYPERLIPIDEMIA NEC/NOS[ICD9: 272.4] Diagnosis: HYPERTENSION[ICD9: 401.9] Diagnosis: CAD[ICD9: 414.00] Diagnosis: Hyperglycemia[ICD9: 790.29] Diagnosis: MALAISE AND FATIGUE[ICD9: 780.79] Vikki GUAMAN [employer] [facility] CPT-4: 41644 11/14/2014 ([id number]) OFFICE/OUTPATIENT VISIT EST Diagnosis: MAL[place][ICD9: 780.79] Diagnosis: HYPOGLYCEMIA[ICD9: 251.2] Diagnosis: Grieving[ICD9: 309.0] Diagnosis: ABDOMINAL PAIN[ICD9: 789.00] Vikki GUAMAN [facility] CPT-4: 70522 11/13/2014 OFFICE/OUTPATIENT VISIT EST Diagnosis: CERUMEN IMPACTION[ICD9: 380.4] Diagnosis: EUSTACHIAN TUBE DYSFUNCTION[ICD9: 381.81] Jesesnia Penny VIKKI [facility] CPT-4: 47222 09/27/2014 ([id number]) OFFICE/OUTPATIENT VISIT EST Diagnosis: Leg pain[ICD9: 729.5] Diagnosis: SUPERFIC PHLEBITIS-LEG[ICD9: 451.0] Vikki [facility] CPT-4: 92824 07/11/2014 ([id number]) OFFICE/OUTPATIENT VISIT EST Diagnosis: Thoracic back pain[ICD9: 724.1] Diagnosis: SPASM OF MUSCLE[ICD9: 728.85] Vikki [facility] CPT-4: 46403 05/23/2014 ([id number]) OFFICE/OUTPATIENT VISIT EST Diagnosis: DIZZINESS/VERTIGO[ICD9: 780.4] Diagnosis: Benign positional vertigo[ICD9: 386.11] Diagnosis: HYPERTENSION[ICD9: 401.9] Diagnosis: Suspicious nevus[ICD9: 238.2] Vikkigabriel [facility] CPT-4: 03932 03/20/2014 ([id number]) OFFICE/OUTPATIENT VISIT EST Diagnosis: FLU VACCINE[ICD10: Z23] Vikki [facility] CPT-4: 30527 12/21/2013 OFFICE/OUTPATIENT VISIT EST Diagnosis: SINUSITIS, ACUTE[ICD9: 461.9] Diagnosis: EUSTACHIAN TUBE DYSFUNCTION[ICD9: 381.81] Jessenia [facility] CPT-4: 23277 10/17/2013 ([id number]) OFFICE/OUTPATIENT VISIT EST Diagnosis: DIZZINESS/VERTIGO[ICD9: 780.4] Diagnosis: HYPERTENSION[ICD9: 401.9] Vikki MARTINEZ [facility] CPT-4: 08818 09/24/2013 ([id number]) OFFICE/OUTPATIENT VISIT EST Diagnosis: HYPERTENSION[ICD9: 401.9] Diagnosis: MALAISE AND FATIGUE[ICD9: 780.79] Diagnosis: SINUSITIS, ACUTE[ICD9: 461.9] [facility] CPT-[facility]: 65768 05/31/2013 ([id number]) OFFICE/OUTPATIENT VISIT EST Diagnosis: HYPERLIPIDEMIA NEC/NOS[ICD9: 272.4] Diagnosis: HYPERTENSION[ICD9: 401.9] Diagnosis: B12 DEFIC ANEMIA NEC[ICD9: 281.1] Diagnosis: HYPOGLYCEMIA[ICD9: 251.2] [facility]: 92935 03/28/2013 OFFICE/OUTPATIENT VISIT EST Diagnosis: COUGH[ICD9: 786.2] Jessenia [facility] CPT-4: 21467 03/26/2013 OFFICE/OUTPATIENT VISIT EST Diagnosis: COUGH[ICD9: 786.2] Diagnosis: URI, ACUTE[ICD9: 465.9] Jessenia [facility] CPT-4: 31629 12/19/2012 ([id number]) OFFICE/OUTPATIENT VISIT EST Diagnosis: HYPERTENSION[ICD9: 401.9] Diagnosis: CEPHALGIA[ICD9: 784.0] Diagnosis: ANXIETY STATE NOS[ICD9: 300.00] Diagnosis: FLU VACCINE[ICD9: V04.81] Vikki PECK [facility] CPT-4: 46649 11/27/2012 ([id number]) OFFICE/OUTPATIENT VISIT EST Diagnosis: DIZZINESS/VERTIGO[ICD9: 780.4] Diagnosis: SINUSITIS, ACUTE[ICD9: 461.9] Diagnosis: Benign positional vertigo[ICD9: 386.11] Vikki [facility] CPT-4: 75793 10/04/2012 OFFICE/OUTPATIENT VISIT EST Diagnosis: OTITIS MEDIA NOS[ICD9: 382.9] Vikki [facility] CPT-4: 73360 07/27/2012 OFFICE/OUTPATIENT VISIT EST Diagnosis: Perforation of ear drum[ICD9: 384.20] Diagnosis: SINUSITIS, ACUTE[ICD9: 461.9] Vikki [facility] CPT-4: 20557 07/14/2012 ([id number]) OFFICE/OUTPATIENT VISIT EST Diagnosis: Mastalgia[ICD9: 611.71] Vikki [facility] CPT-4: 62701 06/08/2012 ([id number]) OFFICE/OUTPATIENT VISIT EST Diagnosis: HYPERLIPIDEMIA NEC/NOS[ICD9: 272.4] Diagnosis: HYPERTENSION[ICD9: 401.9] Diagnosis: DIZZINESS/VERTIGO[ICD9: 780.4] Diagnosis: Hyperglycemia[ICD9: 790.29] Diagnosis: MALAISE AND FATIGUE[ICD9: 780.79] Vikki Ciscobhavya Conde AlejandraSujata [facility] CPT-4: 16578 02/23/2012 ([id number]) OFFICE/OUTPATIENT VISIT EST Diagnosis: EUSTACHIAN TUBE DYSFUNCTION[ICD9: 381.81] Diagnosis: DIZZINESS/VERTIGO[ICD9: 780.4] Diagnosis: ABDOMINAL PAIN[ICD9: 789.00] Diagnosis: GERD[ICD9: 530.81] Diagnosis: CERUMEN IMPACTION[ICD9: 380.4] Vikki CORTEZLINE Alejandra Sujata [facility] CPT-4: 22913 02/22/2012 OFFICE/OUTPATIENT VISIT EST Diagnosis: ABDOMINAL PAIN[ICD9: 789.00] Diagnosis: DYSPEPSIA[ICD9: 536.8] Vikki [facility] CPT-4: 18266 12/28/2011 ([id number]) OFFICE/OUTPATIENT VISIT EST Diagnosis: ABDOMINAL PAIN[ICD9: 789.00] Diagnosis: DYSPEPSIA[ICD9: 536.8] Diagnosis: IBS[ICD9: 564.1] Vikki [facility] CPT - 4: 35913 12/15/2011 OFFICE/OUTPATIENT VISIT EST Diagnosis: DIZZINESS/VERTIGO[ICD9: 780.4] Diagnosis: HYPOGLYCEMIA[ICD9: 251.2] Vikki MARTINEZ [facility] CPT-4: 94791 09/21/2011 ([id number]) OFFICE/OUTPATIENT VISIT EST Diagnosis: URINARY TRACT INFECTION[ICD9: 599.0] Vikki [facility] CPT-4: 83797 09/16/2011 ([id number]) OFFICE/OUTPATIENT VISIT EST Diagnosis: HYPERLIPIDEMIA NEC/NOS[ICD9: 272.4] Diagnosis: HYPERTENSION[ICD9: 401.9] Diagnosis: MALAISE AND FATIGUE[ICD9: 780.79] Diagnosis: DIZZINESS/VERTIGO[ICD9: 780.4] Vikki [facility] CPT-4: 06977 09/15/2011 ([id number]) OFFICE/OUTPATIENT VISIT EST Diagnosis: DIZZINESS/VERTIGO[ICD9: 780.4] Diagnosis: MALAISE AND FATIGUE[ICD9: 780.79] Diagnosis: HYPERTENSION[ICD9: 401.9] Vikki [facility]INEZ [facility] CPT-4: 44211 09/13/2011 OFFICE/OUTPATIENT VISIT EST Diagnosis: LUMB/LUMBOSAC DISC DEGEN[ICD9: 722.52] Diagnosis: Radiculopathy of leg[ICD9: 724.4] Diagnosis: 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] Diagnosis: SPINAL ENTHESOPATHY[ICD9: 720.1] Vikki [facility] CPT-4: 23161 08/16/2011 ([id number]) OFFICE/OUTPATIENT VISIT EST Diagnosis: PAIN, LOWER BACK[ICD9: 724.2] Diagnosis: SPASM OF MUSCLE[ICD9: 728.85] Diagnosis: SCIATICA[ICD9: 724.3] Diagnosis: Lumbar degenerative disc disease[ICD9: 722.52] Vikki [facility] CPT-4: 60341 08/03/2011 ([id number]) OFFICE/OUTPATIENT VISIT EST Diagnosis: PAIN IN THORACIC SPINE[ICD9: 724.1] Diagnosis: SPASM OF MUSCLE[ICD9: 728.85] Vikki [facility] CPT-4: 48609 07/26/2011 ([id number]) OFFICE/OUTPATIENT VISIT EST Diagnosis: PAIN, LOWER BACK[ICD9: 724.2] Diagnosis: SPASM OF MUSCLE[ICD9: 728.85] Diagnosis: Sacroiliac dysfunction[ICD9: 739.4] Diagnosis: Lumbar degenerative disc disease[ICD9: 722.52] Vikki [facility] CPT-4: 46231 06/28/2011 OFFICE/OUTPATIENT VISIT EST Diagnosis: MALAISE AND FATIGUE[ICD9: 780.79] Diagnosis: HYPOTENSION[ICD9: 458.9] Diagnosis: CAD[ICD9: 414.00] Vikki [facility] CPT-4: 55338 03/31/2011 OFFICE/OUTPATIENT VISIT EST Diagnosis: SINUSITIS, ACUTE[ICD9: 461.9] Diagnosis: PHARYNGITIS, ACUTE[ICD9: 462] Diagnosis: CERUMEN IMPACTION[ICD9: 380.4] Vikki [facility] CPT-4: 75714 02/11/2011 OFFICE/OUTPATIENT VISIT EST Diagnosis: PAIN IN THORACIC SPINE[ICD9: 724.1] Diagnosis: GERD[ICD9: 530.81] Diagnosis: DIZZINESS/VERTIGO[ICD9: 780.4] Vikki [facility] CPT-4: 93872 10/15/2010 OFFICE/OUTPATIENT VISIT EST Vikki [facility] CPT- 4: 10440 09/29/2010 ([id number]) OFFICE/OUTPATIENT VISIT EST [facility] CPT-4: 85350 07/02/2010 ([id number]) OFFICE/OUTPATIENT VISIT, EST Diagnosis: PAIN, LOWER BACK[ICD9: 724.2] Vikki [facility] CPT-4: 68374 04/06/2010 ([id number]) OFFICE/OUTPATIENT VISIT, EST Vikki CRISOSTOMO SSujata [facility] CPT-4: 48809 04/01/2010 ([id number]) OFFICE/OUTPATIENT VISIT, EST Vikki Shah [facility] CPT-4: 89505 01/22/2010 ([id number]) OFFICE/OUTPATIENT VISIT, EST Vikki CRISOSTOMO SSujata [facility] CPT-4: 85741 12/02/2009 ([id number]) OFFICE/OUTPATIENT VISIT, EST Vikki CRISOSTOMO [facility]. [facility] CPT-4: 43392 10/21/2009 ([id number]) OFFICE/OUTPATIENT VISIT, EST Vikki CRISOSTOMO SSujata [facility] CPT-4: 96912 09/10/2009 ([id number]) OFFICE/OUTPATIENT VISIT, EST Vikki [facility] CPT-4: 48595 08/11/2009 ([id number]) OFFICE/OUTPATIENT VISIT, EST Vikki [facility] CPT-4: 47811 06/09/2009 Plan of Care Planned Activity Notes Codes Status Date Visit Diagnosis Plan: Palpitations Discussion: Check C BC, CMP, TSH ICD-9 : 785.1 ICD-10 : R00.2 03/13/2019 Visit Diagnosis Plan: Essential hypertension Discussio n: Increase metoprolol to 25mg q AM and 50mg po q pM Recheck 1 week ICD-9 : 401.9 ICD-10 : I10 03/13/2019 Patient Education: metoprolol tartrate- OptimizeRX [facility] [id number] https://www.[employer]/samplemd/resources/getResource/61/[email or web address] Completed 03/13/2019 Care Plan: X-RAY EXAM NECK SPINE 4/5VWS LOINC : 33208-8 Pending 03/13/2019 Care Plan: X-RAY EXAM THORAC SPINE4/>VW LOINC : 07901-2 Pending 03/13/2019 Appointment: Vikki Guaman WPtel: [address] [place] [address] LAB 01/23/2019 Appointment: Vikki Guaman WPtel: [address] [place] [address] US INJECTION 12/26/2018 Patient Education: INFLUENZA VACCINE [facility] Completed 12/26/2018 Appointment: Vikki Guaman WPtel: [address] [place] [address] LAB 12/15/2018 Visit Diagnosis Plan: Acute serous [...] ICD-10 : H65.02 11/07/2018 Appointment: Jennifer Rosario [address] [place] [address] ACUTE ILLNESS 11/07/2018 Visit Diagnosis Plan: Urinary [...] : R53.83 08/14/2018 Appointment: Vikki Guaman WPtel: [address] [place], [place] [address] US FOLLOW UP 08/14/2018 Visit Diagnosis Plan: [...] : K21.9 05/10/2018 Appointment: Vikki Guaman WPtel: [address] [place], [place] [phone] [place] FOLLOW UP 05/10/2018 Patient Education: metoprolol tartrate- [employer] [facility] [id number] https://www.[employer]/Lectorati/resources/getResource/61/[email or web address]-[email or web address] Completed 05/10/2018 Appointment: Vikki Guaman WPtel: [address] [place], [place] [phone] US CANCELED 04/21/2018 Visit Diagnosis Plan: Gastro-esophageal reflux disease without esophagitis Discussion: Continue protonix and carafate Proceed with updated EGD ICD-9 : 530.81 ICD-10 : K21.9 02/14/2018 Visit Diagnosis Plan: Epigastric pain Discussion: [facility] CT abdomen/pelvis due to ongoing abdominal pain ICD-9 : 789.06 ICD-10 : R10.13 02/14/2018 Appointment: Vikki Guaman WPtel: [address] [place], [place] [phone] US FOLLOW UP 02/14/2018 Care Plan: CT PELVIS W/O DYE LOINC : 361 08-9 Pending 02/14/2018 Care Plan: CT ABDOMEN W/O DYE LOINC : 36 103-0 Pending 02/14/2018 Care Plan: Referral Order SNOMED-CT : 30 [id number] Pending 02/14/2018 Visit Diagnosis Plan: 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 Discussion: S/P [...] : I10 01/10/2018 Appointment: Vikki Guaman WPtel: [address] [place], [place] [address] [place] FOLLOW UP 01/10/2018 Visit Diagnosis Plan: [...] R00.2 12/06/2017 App[facility]ment: [facility] [phone] [facility] [facility]LLOW [facility] 12/06/2017 Patient Education: Patient Medication Summary Completed 12/06/2017 Appointment: Vik[facility]aman [facility]Ptel[facility] [phone] [facility] [facility] 11/30/2017 Patient Education: Patient Medication [...] : F41.1 11/22/2017 Appointment: Vikki Guaman WPtel: [facility] FOLLOW UP 11/22/2017 Patient Education: Patient Medication [...] K21.9 10/20/2017 Appointment: Vikki Guaman WPtel: [phone] [facility] ACUTE ILLNESS 10/20/2017 Patient Education: Patient Medication Summary Completed 10/20/2017 Visit Diagnosis Plan: Dizziness and giddiness Discussi on: blood work to be completed in office including cmp, cbc, troponin to rule out glucose intolerance, infection, dehydration. instructed patient that she needs to see her ring attacher sooner than oct and patient requested we contact dr. brown's office. will have front office make appt. patient has carotid doppler annually. ICD-9 : 780.4 ICD-10 : R42 09/27/2017 App[facility]ment: [facility] [address] [facility] [facility] 09/27/2017 Patient Education: Patient Medication Summary Completed 09/27/2017 Visit Diagnosis Plan: Cervicalgia Discussion: Complete course of PT since symptoms improved Continue stretching exercises Notify if symptoms return or worsen ICD-9 : 723.1 ICD-10 : M54.2 08/16/2017 Appointment: Vikki Guaman WPtel: [address] [place], [place] [phone] FOLLOW UP 08/16/2017 Patient Education: Patient Medication [...] : H81.43 07/07/2017 Appointment: Vikki Guaman WPtel: [facility] 07/07/2017 Patient Education: Patient Medication Summary Completed 07/07/2017 Care Plan: MRI NECK SPINE W/O DYE LOINC : 29096-0 Pending 07/07/2017 Visit Diagnosis Plan: Otalgia, bilateral [...] ICD-10 : H81.13 05/30/2017 Appointment: Jennifer Rosario [address] [place] [address] ACUTE ILLNESS 05/30/2017 Patient Education: Patient Medication [...] : M54.17 04/18/2017 Appointment: Vikki Guaman WPtel: [address] [place] [address] ACUTE ILLNESS 04/18/2017 Patient Education: Patient Medication Summary Completed 04/18/2017 Appointment: Vikki Guaman WPtel: [address] [place] [address] US INJECTION 12/10/2016 Patient Education: Patient Medication Summary Completed 12/10/2016 Appointment: Vikki Guaman WPtel: [address] [place] [address] LAB 11/01/2016 Patient Education: Patient Medication Summary [...] : M51.36 10/25/2016 Appointment: Vikki Guaman WPtel: [address] [place] [address] FOLLOW UP 10/25/2016 Patient Education: Patient Medication [...] : R10.32 09/20/2016 Appointment: Vikki Guaman WPtel: [address] [place], [place] [phone] ACUTE ILLNESS 09/20/2016 Patient Education: Patient Medication Summary Completed 09/20/2016 Appointment: Vikki Guaman WPtel: [address] [place], [place] [phone] [place] LAB 05/13/2016 Patient Education: Patient Medication [...] : N64.4 05/12/2016 Appointment: Vikki Guaman WPtel: [facility] [facility] 05/11 confirmed `sl ACUTE ILLNESS 05/12/2016 Patient Education: Patient Medication Summary Completed 05/12/2016 Care Plan: MAMMOGRAM SCREENING LOINC : 2 6347-5 Pending 05/12/2016 Visit Diagnosis Plan: Acute upper respiratory infectio n, unspecified Discussion: Exam is reassuring Likely viral illness Supportive care reviewed and encouraged Follow up PRN ICD-9 : 465.9 ICD-10 : J06.9 03/18/2016 Appointment: Zain Moyafany [address] [place], [place] [phone] ACUTE ILLNESS 03/18/2016 Patient Education: Patient Medication Summary Completed 03/18/2016 Visit Plan: Supportive care. Rest, Fluid s, Tylenol/Motrin prn fever or bodyaches. Notify if worsening symptoms. 02/06/2016 Appointment: Vikki Guaman WPtel: [address] [place] [address] ACUTE ILLNESS 02/06/2016 Patient Education: Patient Medication Summary Completed 02/06/2016 Appointment: Vikki Guaman WPtel: [address] [place] [address] INJECTION 12/12/2015 Patient Education: Patient Medication Summary Completed 12/12/2015 Appointment: Vikki Guaman WPtel: [address] [place] [address] LAB 11/25/2015 Patient Education: Patient Medication Summary Completed 11/25/2015 Visit Plan: Add miralax daily Use daily probiotic and metamucil and push fluids Notify if worsens/persists 08/26/2015 Appointment: Vikki Guaman WPtel: [address] [place] [address] 08/25/15 confirmed ~sl ACUTE ILLNESS 08/26/2015 Patient Education: Patient Medication Summary Completed 08/26/2015 Visit Plan: No NSAIDs Kidney function di scussed Discussed hydration Monitor lab every 4months so will check CMP, HbA1C next month 05/21/2015 Appointment: Vikki Guaman WPtel: [address] [place] [address] 05/19 confirmed ~sl ACUTE ILLNESS 05/21/2015 Patient Education: Patient Medication Summary Completed 05/21/2015 Visit Plan: Vestibular exercises Refill flonase Strict low Na diet--discussed that needs to read labels Rx for walker with chair given due to muscle weakness/unsteadiness Has carotids and abdominal aorta and legs checked in March Check Chem 7 02/19/2015 Appointment: Vikki Guaman WPtel: [address] [place], [place] [phone] 02/18/15 appt confirmed cn FOLLOW UP 02/19 Patient Education: Patient Medication Summary Completed 02/19/2015 Patient Education: Vertigo Completed 04/22/2014 Appointment: Vikki Guaman WPtel: [address] [place], [place] [phone] INJECTION 12/20/2014 Patient Education: Patient Medication Summary Completed 12/20/2014 Appointment: Vikki Guaman WPtel: [address] [place], [place] [phone] UA 11/19/2014 Patient Education: Patient Medication Summary Completed 11/19/2014 Referral: Edy Cheek WPtel: [address] Referral Completed 11/18/2014 Appointment: Vikki Guaman WPtel: [address] [place], [place] [phone] LAB 11/14/2014 Patient Education: Patient Medication Summary Completed 11/14/2014 Visit Plan: Check CMP, CBC, TSH, Free T4 , B12, Lipids, HbA1C Discussed 6 small meals a day each with protein Would likely benefit from antidepressant Update colonoscopy 11/13/2014 Appointment: Vikki Guaman WPtel: [address] [place], [place] [phone] 11/12/14 confirmed ACUTE ILLNESS 11/13/2014 Patient Education: Patient Medication Summary Completed 11/13/2014 Visit Plan: Cerumen flush with warm wate r and peroxide - good results Resume Nasonex nasal spray daily Recommended Debrox earwax removal drops 09/27/2014 Appointment: Jessenia Francis WPtel: [address] [place] [address] ACUTE ILLNESS 09/27/2014 Patient Education: Patient Medication Summary Completed 09/27/2014 Visit Plan: Continue aspirin daily Add m eloxicam for 1week Elevate and Ice Call on Tuesday07/11/2014 Appointment: Vikki Guaman WPtel: [address] [place], [place] [phone] ACUTE ILLNESS 07/11/2014 Patient Education: Patient Medication Summary Completed 07/11/2014 Visit Plan: Been using baclofen at [facility] and has helped some PT for next 2-4weeks 05/23/2014 Appointment: Vikki Guaman WPtel: [address] [place], [place] [phone] [place] [address] Follow Up 05/23/2014 Patient Education: Patient Medication Summary Completed 05/23/2014 Appointment: Vikki Guaman WPtel: [address] [place], [place] [phone] LAB 05/10/2014 Appointment: Vikki Guaman WPtel: [address] [place] [address] feeling better, weather - FOLLOW UP 04/07 Referral: Edy Cheek WPtel: [facility] [address] Referral Appointment Requested 04/03/2014 Visit Plan: Continue exercise and curren t meds See surgery for removal of right arm lesion 03/20/2014 Appointment: Vikki Guaman WPtel: [address] [place], [place] [phone] FOLLOW UP 03/20/2014 Patient Education: Patient Medication Summary Completed 03/20/2014 Appointment: Vikik Guaman WPtel: [address] [place], [place] [phone] US INJECTION 12/21/2013 Patient Education: Patient Medication Summary Completed 12/21/2013 Appointment: Jessenia Francis WPtel: [address] [place], [place] [phone] ACUTE ILLNESS 10/17/2013 Patient Education: Patient Medication Summary Completed 10/17/2013 Visit Plan: Discussed that likely lumbar etiology for leg weakness Will change amlodopine to low dose dyazide and see if helps legs and inner ear 09/24/2013 Appointment: Vikki Guaman WPtel: [address] [place] [address] FOLLOW UP 09/24/2013 Patient Education: Patient Medication Summary Completed 09/24/2013 Visit Plan: Ceftin and continue claritin /flonase Decrease amlodopine to 2.5mg q HS until fwup with Card due to weakness 05/31/2013 Appointment: Vikki Guaman WPtel: [address] [place] [address] ACUTE ILLNESS 05/31/2013 Patient Education: Patient Medication Summary Completed 05/31/2013 Appointment: Vikki Guaman WPtel: [address] [place], [place] [phone] LAB 03/28/2013 Patient Education: Patient Medication Summary Completed 03/28/2013 Appointment: Jessenia Francis WPtel: [address] [place] [address] ACUTE ILLNESS 03/26/2013 Patient Education: Patient Medication Summary Completed 03/26/2013 Visit Plan: Supportive care. Rest, Fluid s, Tylenol prn fever or bodyaches. Notify if worsening symptoms. Ceftin 12/19/2012 Appointment: Jessenia Francis WPtel: [address] [place] [address] ACUTE ILLNESS 12/19/2012 Patient Education: Patient Medication Summary Completed 12/19/2012 Appointment: Vikki Guaman WPtel: [address] [place] [address] BP CHECK 12/04/2012 Patient Education: Patient Medication Summary Completed 12/04/2012 Appointment: Vikki Guaman WPtel: [address] [place], [place] [phone] ER Follow UP 11/27/2012 Patient Education: Patient Medication Summary Completed 11/27/2012 Visit Plan: Restart flonase BID Use mecl izine 25mg q HS Vestibular exercises Claritin 10mg q AM See ENT if doesn't resolve 10/04/2012 Appointment: Vikki Guaman WPtel: [address] [place] [address] ACUTE ILLNESS 10/04/2012 Patient Education: Patient Medication Summary Completed 10/04/2012 Visit Plan: Will continue to observe 07/27/2012 Appointment: Vikki Guaman WPtel: [address] [place], [place] [phone] FOLLOW UP 07/27/2012 Patient Education: Patient Medication [...] ear recheck. 07/14/2012 Appointment: Evelyn Santos WPtel: [address] [place] [address] ACUTE ILLNESS 07/14/2012 Patient Education: Patient Medication Summary Completed 07/14/2012 Visit Plan: Decrease caffeine intake Kristin ck Bilateral Mammogram with US of left breast 06/08/2012 Appointment: Vikki Guaman WPtel: [address] [place] [address] ACUTE ILLNESS 06/08/2012 Patient Education: Patient Medication Summary Completed 06/08/2012 Appointment: Alisia Campbell WPtel: [address] [place], [place] [phone] US appt scheduled 04/06 ACUTE ILLNESS 04/10/2012 Appointment: Vikki Guaman WPtel: [address] [place], [place] [phone] US LAB 02/23/2012 Patient Education: Patient Medication Summary Completed 02/23/2012 Visit Plan: Continue off carafate and se e how does Continue probiotic Add Vestibular exercises and use meclizine prn Continue Nasonex Check fasting lab including CMP, Lipids, CBC, TSH, Free T4, HbA1C 02/22/2012 Appointment: Vikki Guamantel: [address] [place], [place] [phone] FOLLOW UP 02/22/2012 Patient Education: Patient Medication Summary Completed 02/22/2012 Visit Plan: Continue carafate for 4more weeks at current dose then decrease to BID for 2wks then q HS 12/28/2011 Appointment: Vikki Guaman WPtel: [address] [place], [place] [phone] FOLLOW UP 12/28/2011 Patient Education: Patient Medication Summary Completed 12/28/2011 Visit Plan: Continue omeprazole Add Judi fate 1gm po q AC Add daily probiotic 12/15/2011 Appointment: Vikki Guaman WPtel: [address] [place], [place] [phone] ACUTE ILLNESS 12/15/2011 Patient Education: Patient Medication Summary Completed 12/15/2011 Appointment: Vikki Guamantel: [address] [place], [place] [phone] US INJECTION 12/02/2011 Patient Education: Patient Medication Summary Completed 12/02/2011 Visit Plan: Diabetic Diet Accuchecks BID alternating times Hold onglyza and Januvia for now and continue diet and exercise and weight loss and moniter BS Discussed hypoglycemia and snack of peanut butter and crackers with juice or milk 09/21/2011 Appointment: Vikki Guamantel: [address] [place], [place] [phone] WORK IN 09/21/2011 Patient Education: Patient Medication Summary Completed 09/21/2011 Appointment: Vikki Guamantel: [address] [place], [place] [phone] UA 09/16/2011 Patient Education: Patient Medication Summary Completed 09/16/2011 Appointment: Vikki Guamantel: [address] [place], [place] [phone] [place] LAB 09/15/2011 Patient Education: Patient Medication Summary Completed 09/15/2011 Appointment: Vikki Guaman WPtel: [address] [place] [address] ACUTE ILLNESS 09/13/2011 Patient Education: Patient Medication Summary Completed 09/13/2011 Visit Plan: Injection to Right SI joint as above Pt will call in 3 days on pain Has PT starting in 2wks. 08/16/2011 Appointment: Vikki Guaman WPtel: [address] [place] [address] ACUTE ILLNESS 08/16/2011 Patient Education: Patient Medication Summary Completed 08/16/2011 Visit Plan: OMT done Start PT May need u pdated MRI if need to consider epidural Prednisone 08/03/2011 Appointment: Vikki Guaman WPtel: [address] [place] [address] OMT 08/03/2011 Patient Education: Patient Medication Summary Completed 08/03/2011 Visit Plan: Flexeril and Vimovo OMT done Daily stretches 07/26/2011 Appointment: Vikki Guaman WPtel: [address] [place] [address] ACUTE ILLNESS 07/26/2011 Patient Education: Patient Medication Summary Completed 07/26/2011 Visit Plan: OMT done Daily stretches Roque [facility] Right SI joint injection Call in 1week Vimovo BID 06/28/2011 Appointment: Vikki Guaman WPtel: [address] [place] [address] ACUTE ILLNESS 06/28/2011 Patient Education: Patient Medication Summary Completed 06/28/2011 Appointment: Vikki Guaman WPtel: [address] [place] [address] US LAB 04/01/2011 Patient Education: Patient Medication Summary Completed 04/01/2011 Visit Plan: Decrease amlodopine to 1.25m g daily Schedule with Cardiology Fasting lab in AM 03/31/2011 Appointment: Vikki Guaman WPtel: [address] [place] [address] ACUTE ILLNESS 03/31/2011 Patient Education: Patient Medication Summary Completed 03/31/2011 Visit Plan: Saline nasal flushes prn. Ty lenol/Motrin prn headache. Notify if persists/symptoms worsening. Cerumen removal from ears as above 02/11/2011 Appointment: Vikki Guaman WPtel: [address] [place] [address] ACUTE ILLNESS 02/11/2011 Patient Education: Patient Medication Summary Completed 02/11/2011 Appointment: Vikki Guaman WPtel: [address] [place] [address] INJECTION 12/09/2010 Patient Education: Patient Medication Summary Completed 12/09/2010 Visit Plan: Continue vimovo for 1more we ek Increase Omeprazole to BID for 1mo then resume QD if stomach improved Vestibular exercises with meclizine q HS for next week 10/15/2010 Appointment: Vikki Guaman WPtel: [address] [place] [address] FOLLOW UP 10/15/2010 Patient Education: Patient Medication Summary Completed 10/15/2010 Appointment: Vikki Guaman WPtel: [address] [place] [address] ACUTE ILLNESS 09/29/2010 Patient Education: Patient Medication Summary Completed 09/29/2010 Appointment: Vikki Guaman WPtel: [address] [place] [address] LAB 07/06/2010 Patient Education: Patient Medication Summary Completed 07/06/2010 Visit Plan: Saline nasal flushes prn. Ty lenol/Motrin prn headache. Notify if persists/symptoms worsening. Add Veramyst Increase Omeprazole to 20mg po BID 07/02/2010 Appointment: Vikki Guaman WPtel: [address] [place] [address] ACUTE ILLNESS 07/02/2010 Patient Education: Patient Medication Summary Completed 07/02/2010 Appointment: Vikki Guaman WPtel: [address] [place] [address] FOLLOW UP 04/06/2010 Patient Education: Patient Medication Summary Completed 04/06/2010 Appointment: Vikki Guaman WPtel: [address] [place] [address] ACUTE ILLNESS 04/01/2010 Patient Education: Patient Medication Summary Completed 04/01/2010 Visit Plan: Nasocourt sample given. Pt. will notify if symptoms are worse on Tuesday. 01/22/2010 Appointment: Alisia Campbell WPtel: [address] [place] [address] ACUTE ILLNESS 01/22/2010 Patient Education: Patient Medication Summary Completed 01/22/2010 Appointment: Vikki Guaman WPtel: [address] [place] [address] [place] INJECTION 12/10/2009 Patient Education: Patient Medication Summary Completed 12/10/2009 Appointment: Vikki Guaman WPtel: [address] [place] [address] FOLLOW UP 12/02/2009 Patient Education: Patient Medication Summary Completed 12/02/2009 Patient Education: Lexapro Completed 0 12/02/2009 Visit Plan: May proceed with hiatal ryan ia repair per Card. so will contact Dr. Mariscal's office to proceed with surgery Trial of Lexapro 5mg QD plus use xanax prn 10/21/2009 Appointment: Vikki Guaman WPtel: [address] [place] [address] FOLLOW UP 10/21/2009 Patient Education: Patient Medication Summary Completed 10/21/2009 Visit Plan: B12 given Cont oral B12 and iron Fwup 1mo for B12 Proceed with hiatal hernia repair once card clearance 09/10/2009 Appointment: Vikki Guaman WPtel: [address] [place], [place] [id number] [place] FOLLOW UP 09/10/2009 Patient Education: Patient Medication Summary Completed 09/10/2009 Appointment: Vikki Guaman WPtel: [address] [place], [place] [id number] [place] FOLLOW UP 08/11/2009 Patient Education: Patient Medication Summary Completed 08/11/2009 Appointment: Vikki Guaman WPtel: [address] [place], [place] [phone] [place] LAB 06/10/2009 Patient Education: Patient Medication Summary Completed 06/10/2009 Visit Plan: Check fasting lab in AM--CMP ,Lipids, CBC, Vit D, TSH,FreeT4, B12 06/09/2009 Appointment: Vikki Guaman WPtel: [address] [place], [place] [phone] FOLLOW UP 06/09/2009 Patient Education: Patient Medication Summary Completed 06/09/2009 Referral: Edy Cheek WPtel: #[address] [facility]66[facility] Referral Appointment Requested Referral: Edy Cheek WPtel: #[address] Referral Initiated Instructions Comment . Supportive [...]
--- OUTSIDE RECORDS SUMMARY | 2019-04-25 20:38 | XMS REPORT | CCD ---
Author Author Evelyne Guaman D.O. Organization [facility] Address [address] [place] [address] Phone Care Team Providers Care Fulfillment Representative Name Role Phone Vikki Guaman D.O. PP Unavailable CCM Unavailable Summary Purpose Interface Exchange Insurance Providers Payer name Policy type / Coverage type Covered constitution party ID Effective Begin Date Effective End Date WPS MEDICARE PART B [place] Medicare Part B [id number] 2017 Unknown A[employer]na [facility] Medicare Part B [id number] Unknown Family history Father Diagnosis Age At Onset Heart disease Unknown Mother Diagnosis Age At Onset Heart disease Unknown Cancer Unknown Social History Social History Element Codes Description Effective Dates Tobacco history SNOMED CT: 504356008 Never smoker 09/29/2010 Marital status Unknown Single [...] hypertension ICD-9: 401.9 ICD-10: I10 09/24/2013 Active Mixed hyperlipidemia ICD-9: 272.4 ICD-10: E78.2 [...] R10.13 11/22/2017 Active 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 01/10/2018 Active Generalized anxiety disorder ICD-9: 300.00 ICD-10: F41.1 11/22/2017 Active Palpitations ICD-9: 785.1 ICD-10: R00.2 12/06/2017 Active Dizziness and giddiness ICD-9: 780.4 ICD-10: [...] Fill Instructions simvastatin 40 mg tablet RxNorm: 071048 1 Tablet(s) PO QD 01/22/2019 04/21/2019 Active omeprazole 40 mg capsule,delayed release RxNorm: 20020415 Capsu le(s) Oral QD 01/10/2019 07/08/2019 Active Xanax 0.25 mg tablet RxNorm: 616475 TAKE 1 TABLET BY MOUTH TWIC E DAILY 01/02/2019 No Stop Date Active omeprazole 40 mg capsule,delayed release RxNorm: 20020415 Capsu le(s) PO QD 12/11/2018 01/09/2019 Inactive metoprolol tartrate 25 mg tablet RxNorm: 080580 1 Tablet(s) PO BID 11/20/2018 05/18/2019 Active omeprazole 40 mg capsule,delayed release RxNorm: 862325 Capsu le(s) PO QD 11/13/2018 12/10/2018 Inactive Flonase Allergy Relief 50 mcg/actuation nasal spray,suspensi on RxNorm: 3696190 2 [place] NASAL QHS 11/07/2018 No Stop Date Active simvastatin 40 mg tablet RxNorm: 671076 1 Tablet(s) PO QD 10/23/2018 01/20/2019 Inactive simvastatin 40 mg tablet RxNorm: 408097 1 Tablet(s) PO QD 07/24/2018 10/21/2018 Inactive omeprazole 40 mg capsule,delayed release RxNorm: 564855 Capsu le(s) PO QD 07/13/2018 11/09/2018 Inactive simvastatin 40 mg tablet RxNorm: 817275 1 Tablet(s) PO QD 06/13/2018 07/12/2018 Inactive omeprazole 40 mg capsule,delayed release RxNorm: 422918 1 Capsu le(s) PO QD 06/13/2018 07/12/2018 Inactive Bactrim DS 800 mg-160 mg tablet RxNorm: 210456 1 Tablet(s) PO BID 0 05/12/2018 05/18/2018 Inactive Bactrim DS 800 mg-160 mg tablet RxNorm: 103866 1 Tablet(s) PO BID 0 05/12/2018 05/11/2018 Inactive Macrobid 100 mg capsule RxNorm: 244227 1 Capsule(s) PO BID 05/11/1905/16/2018 Inactive metoprolol tartrate 25 mg tablet RxNorm: 256590 1 Tablet(s) PO BID 05/10/2018 11/05/2018 Inactive Xanax 0.25 mg tablet RxNorm: 692730 TAKE 1 TABLET BY MOUTH TWIC E DAILY 02/16/2018 01/01/2019 Inactive Xanax 0.25 mg tablet RxNorm: 788580 1 Tablet(s) PO BID 02/14/2018 Inactive Protonix 40 mg tablet,delayed release RxNorm: 381014 1 Tablet(s) PO BID for stomach--replaces omeprazole 01/10/2018 05/09/2018 Inactive Carafate 1 gram tablet RxNorm: 418383 1 Tablet(s) PO AC & HS 201705/09/2018 Inactive Xanax 0.25 mg tablet RxNorm: 235869 1 Tablet(s) PO BID 01/03/201812/2017 Inactive Bactrim DS 800 mg-160 mg tablet RxNorm: 899238 1 Tablet(s) PO BID 1 12/12/2017 Inactive Bactrim DS 800 mg-160 mg tablet RxNorm: 704134 1 Tablet(s) PO BID 1 12/07/2017 Inactive Carafate 1 gram tablet RxNorm: 943759 1 Tablet(s) PO AC & HS 201712/21/2017 Inactive Protonix 40 mg tablet,delayed release RxNorm: 950985 1 Tablet(s) PO BID for stomach--replaces omeprazole 11/22/2017 01/09/2018 Inactive Protonix 40 mg tablet,delayed release RxNorm: 898895 1 Tablet(s) PO BID for stomach--replaces omeprazole 10/20/2017 11/21/2017 Inactive fluticasone 50 mcg/actuation nasal spray,suspension RxNorm: 3329688 2 [place] NASAL QD to each nostril 07/07/2017 08/13/2018 Inactive Nasonex 50 mcg/actuation [place] RxNorm: 1254156 2 [place] NASAL 201707/07/2017 Inactive omeprazole 40 mg capsule,delayed release RxNorm: 419761 1 Capsu le(s) PO QD 04/18/2017 10/19/2017 Inactive simvastatin 40 mg tablet RxNorm: 835621 1 Tablet(s) PO QD TAKE 1 TABLET EVERY DAY 04/18/2017 04/12/2018 Inactive metoprolol tartrate 25 mg tablet RxNorm: 952495 1/2 Tablet(s) PO QD 04/18/2017 01/09/2018 Inactive simvastatin 40 mg tablet RxNorm: 365951 Tablet(s) TAKE 1 TABLET EVERY DAY 10/27/2016 04/17/2017 Inactive metoprolol tartrate 25 mg tablet RxNorm: 846738 1/2 Tablet(s) PO QD 09/20/2016 03/18/2017 Inactive Flonase 50 mcg/actuation nasal spray,suspension RxNorm: 1797 933 2 [place] NASAL BID 09/20/2016 04/17/2017 Inactive omeprazole 40 mg capsule,delayed release RxNorm: 113526 1 Capsu le(s) PO QD 09/08/2016 04/17/2017 Inactive metoprolol tartrate 25 mg tablet RxNorm: 494644 1/2 Tablet(s) PO QD 06/14/2016 09/19/2016 Inactive ciprofloxacin 0.2 % ear drops in a dropperette RxNorm: 68529 6 4 Drop(s) OTIC TID for 1 week 02/06/2016 05/11/2016 Inactive cefdinir 300 mg capsule RxNorm: 208344 2 Capsule(s) PO QD 02/06/2016 02/15/2016 Inactive omeprazole 40 mg capsule,delayed release RxNorm: 065961 TAKE 1 CAPSULE EVERY DAY 11/06/2015 09/08/2016 Inactive simvastatin 40 mg tablet RxNorm: 396276 TAKE 1 TABLET EVERY DAY 05/201510/27/2016 Inactive Flonase 50 mcg/actuation nasal spray,suspension RxNorm: 1797 933 2 [place] NASAL BID 02/19/2015 09/19/2016 Inactive cefuroxime axetil 250 mg tablet RxNorm: 582507 1 Tablet(s) PO BID 0 11/21/2014 11/20/2014 Inactive cefuroxime axetil 250 mg tablet RxNorm: 143823 1 Tablet(s) PO BID 0 11/21/2014 11/27/2014 Inactive omeprazole 40 mg capsule,delayed release RxNorm: 396010 1 Capsu le(s) PO QD 10/09/2014 01/05/2015 Inactive meloxicam 7.5 mg tablet RxNorm: 793989 1 Tablet(s) PO QD 07/11/2014 0 08/09/2014 Inactive loratadine 10 mg tablet RxNorm: 609672 1 Tablet(s) PO QAM for a llergies 10/17/2013 08/13/2018 Inactive Flonase 50 mcg/actuation nasal spray,suspension RxNorm: 8963 23 2 [place] NASAL BID 10/17/2013 02/18/2015 Inactive prednisone 20 mg tablet RxNorm: 801689 2 Tablet(s) PO BID 10/17/2013 10/21/2013 Inactive Dyazide 37.5 mg-25 mg capsule RxNorm: 036419 1 Capsule(s) PO QAM 10/16/2013 Inactive Ceftin 500 mg tablet RxNorm: 652234 1 Tablet(s) PO BID 05/31/201307/2013 Inactive Ceftin 500 mg tablet RxNorm: 541273 1 Tablet(s) PO BID 03/26/2013 Inactive simvastatin 40 mg tablet RxNorm: 167591 Tablet(s) PO TA KE ONE TABLET BY MOUTH EVERY DAY 03/26/2013 10/07/2015 Inactive metoprolol tartrate 25 mg tablet RxNorm: 622022 Tablet( s) PO TAKE ONE-HALF TABLET BY MOUTH EVERY DAY 03/26/2013 11/12/2014 Inactive Ceftin 500 mg tablet RxNorm: 144315 1 Tablet(s) PO BID 12/19/2012 Inactive loratadine 10 mg tablet RxNorm: 916609 1 Tablet(s) PO QAM for a llergies 10/04/2012 12/02/2012 Inactive omeprazole 20 mg capsule,delayed release RxNorm: 449363 Capsule(s) PO TAKE ONE CAPSULE BY MOUTH TWICE DAILY 08/09/2012 10/08/2014 Inactive omeprazole 20 mg capsule,delayed release RxNorm: 078290 1 Capsu le(s) PO BID 08/09/2012 05/09/2018 Inactive Augmentin 875 mg-125 mg tablet RxNorm: 938877 1 Tablet(s) PO Q12H 0 07/14/2012 07/23/2012 Inactive Floxin Otic Drops 1 bottle Drops RxNorm: 5 Drop(s) OTIC BID 07/20/2012 Inactive metoprolol tartrate 25 mg tablet RxNorm: 891609 Tablet( s) PO TAKE ONE-HALF TABLET BY MOUTH EVERY DAY 04/11/2012 03/25/2013 Inactive simvastatin 40 mg tablet RxNorm: 214294 Tablet(s) PO TA KE ONE TABLET BY MOUTH EVERY DAY 04/11/2012 03/25/2013 Inactive lancets RxNorm: Misc Miscellaneous USE ONE TO CH JEFFERY GLUCOSE EVERY DAY 04/04/2012 05/09/2018 Inactive Carafate 1 gram tablet RxNorm: 261968 1 Tablet(s) PO AC & HS 201111/12/2014 Inactive Flagyl 500 mg tablet RxNorm: 613188 1 Tablet(s) PO TID 12/15/2011 Inactive Carafate 1 gram tablet RxNorm: 024602 1 Tablet(s) PO AC & HS 201102/12/2012 Inactive One Touch Test strips RxNorm: Miscellaneous QD 09/21/2011 05/09/2018 Inactive one touch ultra mini test strips Protonix 40 mg Tab RxNorm: 092705 1 Tablet(s) PO QD 09/13/20112011 Inactive Protonix 40 mg Tab RxNorm: 845768 1 Tablet(s) PO QD 09/13/20112011 Inactive prednisone 20 mg Tab RxNorm: 730538 1 Tablet(s) PO BID 08/03/201106/2011 Inactive Flexeril 5 mg Tab RxNorm: 820084 1 Tablet(s) PO QHS for spasm 07/2508/24/2011 Inactive Flexeril 5 mg Tab RxNorm: 740111 1 Tablet(s) PO QHS for spasm 06/2707/25/2011 Inactive amlodipine 2.5 mg Tab RxNorm: 517203 1/2 Tablet(s) PO QD replac es 5mg dose 03/31/2011 06/27/2011 Inactive simvastatin 40 mg tablet RxNorm: 421681 1 Tablet(s) PO QD 03/31/2011 03/24/2012 Inactive metoprolol tartrate 25 mg tablet RxNorm: 278788 1/2 Tablet(s) PO QD 03/31/2011 03/24/2012 Inactive omeprazole 20 mg capsule,delayed release RxNorm: 149108 1 Capsu le(s) PO BID 03/31/2011 09/12/2011 Inactive cefdinir 300 mg Cap RxNorm: 027327 2 Capsule(s) PO QD 02/11/201102/04 Inactive simvastatin 40 mg Tab RxNorm: 879016 1 Tablet(s) PO QD 02/01/2011 Inactive metoprolol tartrate 25 mg Tab RxNorm: 452148 1/2 Tablet(s) PO QD 03/30/2011 Inactive metoprolol tartrate 25 mg Tab RxNorm: 499823 1/2 Tablet(s) PO QD 12/28/2010 Inactive meclizine 25 mg Tab RxNorm: 5474945 1 Tablet(s) PO QHS 10/15/201011/2010 Inactive for dizziness Ceftin 500 mg Tab RxNorm: 666085 1 Tablet(s) PO BID 07/02/20102010 Inactive omeprazole 20 mg Cap, Delayed Release RxNorm: 437356 1 Capsule( s) PO BID 07/02/2010 12/28/2010 Inactive simvastatin 40 mg Tab RxNorm: 347727 1 Tablet(s) PO QD 06/30/201007/2018 Inactive simvastatin 40 mg Tab RxNorm: 095339 1 Tablet(s) PO QD 06/30/2010 Inactive simvastatin 40 mg Tab RxNorm: 235166 1 Tablet(s) PO QD 02/25/2010 Inactive Tessalon Perles 100 mg Cap RxNorm: 870460 1 Capsule(s) PO Q6-8H 01/28/2010 Inactive cefdinir 300 mg Cap RxNorm: 797272 1 Capsule(s) PO BID 01/22/2010 Inactive Lexapro 10 mg Tab RxNorm: 162849 1 Tablet(s) PO QD 12/02/2009 010 Inactive Cipro 250 mg Tab RxNorm: 947132 1 Tablet(s) PO BID 12/02/2009 010 Inactive Wellbutrin XL 150 mg 24 hr Tab RxNorm: 219849 1 Tablet(s) PO QAM 08/07/2009 Inactive Fish Oil 1,000 mg Cap RxNorm: 1 Capsule(s) PO QD No Start Date Active Tylenol Extra Strength 500 mg tablet RxNorm: 449897 1/2 Tablet( s) PO as needed No Start Date Active nitroglycerin 0.4 mg sublingual tablet RxNorm: 592797 Tablet(s) SL as needed No Start Date Active Calcium with Vitamin D 600 mg (1,500 mg)-400 unit tablet RxN orm: 620196 1 Tablet(s) PO QD No Start Date Active Multivitamin & Mineral Formula Tab RxNorm: 1 Tablet(s) PO QD No St art Date Active vitamin B complex capsule RxNorm: 1 Capsule(s) PO QD No Start Date Active Aspirin 81 mg Tab RxNorm: 323016 1 Tablet(s) PO QD No Start Date Active isosorbide mononitrate ER 30 mg tablet,extended release 24 h r RxNorm: 460315 1 Tablet(s) PO QHS No Start Date Active Vitamin D 1,000 unit Cap RxNorm: 687048 1 Capsule(s) PO QD No Start D ate Active Co Q-10 oral RxNorm: 77768 oral No Start Date Active metoprolol tartrate 25 mg Tab RxNorm: 784761 1/2 Tablet(s) PO QD No Start Date 12/27/2010 Inactive Nasonex 50 mcg/actuation [place] RxNorm: 7380283 2 [place] NASAL No Sta rt Date 07/06/2017 Inactive Vitamin B12 1000mcg Tablet RxNorm: 1 Tablet(s) PO QD No Start Date 11/12/2014 Inactive amlodipine 5 mg Tab RxNorm: 976538 1 Tablet(s) PO QD No Start Date Inactive simvastatin 40 mg tablet RxNorm: 963051 1 Tablet(s) PO QD No Start Date 06/12/2018 Inactive omeprazole 20 mg capsule,delayed release RxNorm: 264590 1 Capsu le(s) PO BID No Start Date 08/08/2012 Inactive omeprazole 40 mg capsule,delayed release RxNorm: 716462 1 Capsu le(s) PO QD No Start Date 06/12/2018 Inactive Nexium 40 mg Cap RxNorm: 984723 1 Capsule(s) PO QD No Start Date 01/05 Inactive Stool Softener 100 mg Tab RxNorm: 7233847 2 Tablet(s) PO BID No Sta rt Date 03/30/2011 Inactive Calcium with Vitamin D 600 mg (1,500 mg)-400 unit Tab RxNorm : 250007 1 Tablet(s) PO QD No Start Date 11/12/2014 Inactive iron 325 mg (65 mg iron) Tab RxNorm: 010685 1 Tablet(s) PO QD No St art Date 11/12/2014 Inactive Flonase 50 mcg/actuation Nasal [place] RxNorm: 661907 2 [place] DEMOND AL BID No Start Date 10/16/2013 Inactive fluticasone 50 mcg/actuation nasal spray,suspension RxNorm: 5053927 2 [place] NASAL QD to each nostril No Start Date 07/06/2017 Inactive Nasonex 50 mcg/actuation [place] RxNorm: 1518595 2 [place] NASAL QD No Start Date 07/06/2017 Inactive hydralazine 50 mg tablet RxNorm: 455756 1 Tablet(s) PO as needed for BP over 160/90 No Start Date 11/21/2017 Inactive Vimovo 500 mg-20 mg 12 hr Tab RxNorm: 911584 1 Tablet(s) PO BID No Start Date 02/10/2011 Inactive Tylenol PM 25 mg-500 mg/15 mL Oral Soln RxNorm: 1848159 1 PO QPM No Start Date 11/12/2014 Inactive Iron (Ferrous Sulfate) Oral RxNorm: Oral No Start Date 03/30/19 12 Inactive Reglan 10 mg Tab RxNorm: 233818 1 Tablet(s) PO TID before meals No Start Date 02/10/2011 Inactive Xanax 1 mg Tab RxNorm: 811125 1/2 Tablet(s) PO QD No Start Date 11/21 Inactive amlodipine 10 mg tablet RxNorm: 171285 1 Tablet(s) PO QD No Start D ate 09/23/2013 Inactive Iron (dried) Oral RxNorm: Oral No Start Date 03/30/2011 Inactiv e metoprolol tartrate 50 mg tablet RxNorm: 298814 1 Tablet(s) PO BID No Start Date 02/13/2018 Inactive Xanax 0.25 mg tablet RxNorm: 603079 1 Tablet(s) PO BID No Start Date 01/02/2018 Inactive lancets RxNorm: Miscellaneous check blood sugar at least once daily No Start Date 04/03/2012 Inactive simvastatin 40 mg Tab RxNorm: 859317 1 Tablet(s) PO QD No Start Date 02/24/2010 Inactive isosorbide mononitrate ER 30 mg tablet,extended release 24 h r RxNorm: 437675 1 Tablet(s) PO QHS No Start Date 08/13/2018 Inactive amlodipine 2.5 mg tablet RxNorm: 636227 1 Tablet(s) PO QD No Start Date 09/23/2013 Inactive sucralfate 1 gram tablet RxNorm: 246073 1 Tablet(s) PO QID No Start Date 05/09/2018 Inactive Fish Oil Oral RxNorm: Oral No Start Date 03/31/2011 Inactive Multiple Vitamin Oral RxNorm: Oral No Start Date 03/31/[address] [place] [facility] metoprolol tartrate 25 mg tablet RxNorm: 663848 1/2 Tablet(s) P O QD No Start Date 06/13/2016 Inactive metoprolol tartrate 50 mg tablet RxNorm: 013249 1/2 Tablet(s) P O BID No Start Date 05/09/2018 Inactive Flonase Allergy Relief 50 mcg/actuation nasal spray,suspensi on RxNorm: 7849734 2 [place] NASAL QHS No Start Date 11/06/2018 Inactive [...] Result Date S ervice Location GFR CALC [id number] GFR Non Afr Amr 52 mL/min 12/15/2018 Unk nown GFR CALC [id number] GFR Afr Amr >60 mL/min 12/15/2018 Unknow n COMPREHENSIVE METABOLIC 87124 AST 17 U/L 2018 Unknown COMPREHENSIVE METABOLIC 36503 ALT 11 U/L 2018 Unknown COMPREHENSIVE METABOLIC 04398 BUN 17 mg/dL 2018 Unknown COMPREHENSIVE METABOLIC 54011 ALBUMIN 3.9 g/dL 2018 Unknown COMPREHENSIVE METABOLIC 85183 CHLORIDE 108 mmol/L 12/15 Unknown COMPREHENSIVE METABOLIC 23502 Bili Total 0.5 mg/dL 12/15 Unknown COMPREHENSIVE METABOLIC 64761 ALK PHOS 72 U/L 2018 Unknown COMPREHENSIVE METABOLIC 91633 SODIUM 142 mmol/L 12/15 Unknown COMPREHENSIVE METABOLIC 58389 CREATININE 1.02 mg/dL 12/05 Unknown COMPREHENSIVE METABOLIC 23216 CALCIUM 9.3 mg/dL 2018 Unknown COMPREHENSIVE METABOLIC 90641 POTASSIUM 4.0 mmol/L 12/15 Unknown COMPREHENSIVE METABOLIC 25520 Total Protein 6.2 g/dL Unknown COMPREHENSIVE METABOLIC 47132 Glucose 93 mg/dL 2018 Unknown COMPREHENSIVE METABOLIC 12028 Bicarbonate 27 mmol/L 12/05 Unknown COMPREHENSIVE METABOLIC 45053 AGAP 7 mmol/L 2018 Unknown GFR CALC [id number] GFR Non Afr Amr 48 mL/min 08/14/2018 Unk nown GFR CALC [id number] GFR Afr Amr 59 mL/min 08/14/2018 Unknown THYROID STIMULATING HORMONE 82652 TSH 1.936 uIU/mL 08/14/2018 Unknown COMPREHENSIVE METABOLIC 30919 AST 18 U/L 2018 Unknown COMPREHENSIVE METABOLIC 43683 ALT 11 U/L 2018 Unknown COMPREHENSIVE METABOLIC 84969 BUN 18 mg/dL 2018 Unknown COMPREHENSIVE METABOLIC 22715 ALBUMIN 4.2 g/dL 2018 Unknown COMPREHENSIVE METABOLIC 57651 CHLORIDE 109 mmol/L 08/14 Unknown COMPREHENSIVE METABOLIC 10490 Bili Total 0.4 mg/dL 08/14 Unknown COMPREHENSIVE METABOLIC 22028 ALK PHOS 64 U/L 2018 Unknown COMPREHENSIVE METABOLIC 08801 SODIUM 142 mmol/L 08/14 Unknown COMPREHENSIVE METABOLIC 42011 CREATININE 1.09 mg/dL 08/05 Unknown COMPREHENSIVE METABOLIC 14857 CALCIUM 9.3 mg/dL 2018 Unknown COMPREHENSIVE METABOLIC 07084 POTASSIUM 4.7 mmol/L 08/14 Unknown COMPREHENSIVE METABOLIC 99673 Total Protein 6.3 g/dL Unknown COMPREHENSIVE METABOLIC 78491 Glucose 84 mg/dL 2018 Unknown COMPREHENSIVE METABOLIC 11641 Bicarbonate 25 mmol/L 08/05 Unknown COMPREHENSIVE METABOLIC 46500 AGAP 8 mmol/L 2018 Unknown COMPLETE BLOOD COUNT [id number] WBC 7.8 10e9/L 08/15/19 19 Unknown COMPLETE BLOOD COUNT [id number] RBC 4.04 10e12/L 2018 Unknown COMPLETE BLOOD COUNT [id number] HEMOGLOBIN 12.2 g/dL 08/15/19 19 Unknown COMPLETE BLOOD COUNT [id number] HEMATOCRIT 38.6 % 08/15/19 19 Unknown COMPLETE BLOOD COUNT [id number] MCV 95.5 fL 9 Unknown COMPLETE BLOOD COUNT [id number] MCH 30.2 pg 9 Unknown COMPLETE BLOOD COUNT [id number] MCHC 31.6 g/dL 9 Unknown COMPLETE BLOOD COUNT [id number] PLATELET COUNT 215 10e9/L 12/2018 Unknown COMPLETE BLOOD COUNT [id number] Mean Plt Volume 11.2 fL 12/2018 Unknown COMPLETE BLOOD COUNT [id number] Neut Auto 45.7 % 9 Unknown COMPLETE BLOOD COUNT [id number] Lymph Auto 42.1 % 08/15/19 19 Unknown COMPLETE BLOOD COUNT [id number] [place] Auto 9.2 % 9 Unknown COMPLETE BLOOD COUNT [id number] RDW 13.4 % 9 Unknown COMPLETE BLOOD COUNT [id number] Eos Auto 2.7 % 9 Unknown COMPLETE BLOOD COUNT [id number] Baso Auto 0.3 % 9 Unknown COMPLETE BLOOD COUNT [id number] Neutrophil Abs 3.56 10e9/L Unknown COMPLETE BLOOD COUNT [id number] Lymphocyte Abs 3.28 10e9/L Unknown COMPLETE BLOOD COUNT [id number] Monocyte Abs 0.72 10e9/L 08/05 Unknown COMPLETE BLOOD COUNT [id number] Eosinophil Abs 0.21 10e9/L Unknown COMPLETE BLOOD COUNT [id number] RDW-SD 44.9 fL 9 Unknown COMPLETE BLOOD COUNT [id number] Basophil Abs 0.02 10e9/L 08/05 Unknown COMPLETE BLOOD COUNT [id number] WBC 5.2 10e9/L 12/01/19 18 Unknown COMPLETE BLOOD COUNT [id number] RBC 4.21 10e12/L 2017 Unknown COMPLETE BLOOD COUNT [id number] HEMOGLOBIN 12.8 g/dL 12/01/19 18 Unknown COMPLETE BLOOD COUNT [id number] HEMATOCRIT 39.0 % 12/01/19 18 Unknown COMPLETE BLOOD COUNT [id number] MCV 92.6 fL 8 Unknown COMPLETE BLOOD COUNT [id number] MCH 30.4 pg 8 Unknown COMPLETE BLOOD COUNT [id number] MCHC 32.8 g/dL 8 Unknown COMPLETE BLOOD COUNT [id number] PLATELET COUNT 202 10e9/L Unknown COMPLETE BLOOD COUNT [id number] Mean Plt Volume 10.7 fL Unknown COMPLETE BLOOD COUNT [id number] Neut Auto 40.9 % 8 Unknown COMPLETE BLOOD COUNT [id number] Lymph Auto 46.3 % 12/01/19 18 Unknown COMPLETE BLOOD COUNT [id number] [place] Auto 9.3 % 8 Unknown COMPLETE BLOOD COUNT [id number] RDW 13.7 % 8 Unknown COMPLETE BLOOD COUNT [id number] Eos Auto 2.9 % 8 Unknown COMPLETE BLOOD COUNT [id number] Baso Auto 0.6 % 8 Unknown COMPLETE BLOOD COUNT [id number] Neutrophil Abs 2.13 10e9/L Unknown COMPLETE BLOOD COUNT [id number] Lymphocyte Abs 2.41 10e9/L Unknown COMPLETE BLOOD COUNT [id number] Monocyte Abs 0.48 10e9/L 11/06 Unknown COMPLETE BLOOD COUNT [id number] Eosinophil Abs 0.15 10e9/L Unknown COMPLETE BLOOD COUNT [id number] RDW-SD 45.2 fL 8 Unknown COMPLETE BLOOD COUNT [id number] Basophil Abs 0.03 10e9/L 11/06 [place] [address] Glucose 118 mg/dL 11/30 [place] [address] CREATININE 1.01 mg/dL [place] [address] BUN 14 mg/dL 11/30 [place] [address] SODIUM 141 mmol/L 11/06 [place] [address] POTASSIUM 4.0 mmol/L 11/06 [place] [address] CHLORIDE 108 mmol/L 11/06 [place] [address] Bicarbonate 25 mmol/L [place] [address] AGAP 8 mmol/L 11/30 [place] [address] CALCIUM 9.6 mg/dL 11/30 Unknown FREE T4 89273 T4 Free 1.23 ng/dL 11/30/2017 Unknown GFR CALC [id number] GFR Non Afr Amr 53 mL/min 11/30/2017 Unk nown GFR CALC 1989930 GFR Afr Amr >60 mL/min 11/30/2017 Unknow n THYROID STIMULATING HORMONE 25809 TSH 2.124 uIU/mL 11/30/2017 Unknown LIPID GROUP 13938 Cholesterol 152 mg/dL 09/28/2017 Unkno wn LIPID GROUP 54101 Triglyceride 151 mg/dL 09/28/2017 Unkn own LIPID GROUP 02419 HDL CHOLESTEROL 47 mg/dL 09/28/2017 U nknown LIPID GROUP 46865 Chol/HDL Ratio 3.23 ratio 09/28/2017 U nknown LIPID GROUP 80969 NON-HDL Chol 105 mg/dL 09/28/2017 Unkn own LIPID GROUP 14148 LDL Cholesterol 75 mg/dL 09/28/2017 U nknown ASSAY OF TROPONIN QUANT 92833 Troponin-I <0.30 ng/mL Unknown COMPREHENSIVE METABOLIC 00974 AST 20 U/L 2017 Unknown COMPREHENSIVE METABOLIC 45433 ALT 14 U/L 2017 Unknown COMPREHENSIVE METABOLIC 97290 BUN 19 mg/dL 2017 Unknown COMPREHENSIVE METABOLIC 84975 ALBUMIN 4.2 g/dL 2017 Unknown COMPREHENSIVE METABOLIC 46691 CHLORIDE 102 mmol/L 09/27 Unknown COMPREHENSIVE METABOLIC 09075 Bili Total 0.4 mg/dL 09/27 Unknown COMPREHENSIVE METABOLIC 42606 ALK PHOS 66 U/L 2017 Unknown COMPREHENSIVE METABOLIC 24904 SODIUM 135 mmol/L 09/27 Unknown COMPREHENSIVE METABOLIC 46124 CREATININE 1.01 mg/dL 09/05 Unknown COMPREHENSIVE METABOLIC 78883 CALCIUM 9.3 mg/dL 2017 Unknown COMPREHENSIVE METABOLIC 49809 POTASSIUM 4.8 mmol/L 09/27 Unknown COMPREHENSIVE METABOLIC 58589 Total Protein 7.0 g/dL Unknown COMPREHENSIVE METABOLIC 42386 Glucose 91 mg/dL 2017 Unknown COMPREHENSIVE METABOLIC 27943 Bicarbonate 23 mmol/L 09/05 Unknown COMPREHENSIVE METABOLIC 01654 AGAP 10 mmol/L 2017 Unknown COMPLETE BLOOD COUNT [id number] WBC 7.5 10e9/L 09/28/19 18 Unknown COMPLETE BLOOD COUNT [id number] RBC 4.13 10e12/L 2017 Unknown COMPLETE BLOOD COUNT [id number] HEMOGLOBIN 12.6 g/dL 09/28/19 18 Unknown COMPLETE BLOOD COUNT [id number] HEMATOCRIT 38.4 % 09/28/19 18 Unknown COMPLETE BLOOD COUNT [id number] MCV 93.0 fL 8 Unknown COMPLETE BLOOD COUNT [id number] MCH 30.5 pg 8 Unknown COMPLETE BLOOD COUNT 9555636 MCHC 32.8 g/dL 8 Unknown COMPLETE BLOOD COUNT [id number] PLATELET COUNT 204 10e9/L Unknown COMPLETE BLOOD COUNT 0620705 Mean Plt Volume 10.9 fL Unknown COMPLETE BLOOD COUNT 1941435 Neut Auto 43.1 % 8 Unknown COMPLETE BLOOD COUNT [id number] Lymph Auto 45.0 % 09/28/19 18 Unknown COMPLETE BLOOD COUNT 2144743 [place] Auto 9.2 % 8 Unknown COMPLETE BLOOD COUNT 7677650 RDW 13.4 % 8 Unknown COMPLETE BLOOD COUNT 6904095 Eos Auto 2.3 % 8 Unknown COMPLETE BLOOD COUNT 2942835 Baso Auto 0.4 % 8 Unknown COMPLETE BLOOD COUNT [id number] Neutrophil Abs 3.23 10e9/L Unknown COMPLETE BLOOD COUNT [id number] Lymphocyte Abs 3.38 10e9/L Unknown COMPLETE BLOOD COUNT [id number] Monocyte Abs 0.69 10e9/L 09/05 Unknown COMPLETE BLOOD COUNT [id number] Eosinophil Abs 0.17 10e9/L Unknown COMPLETE BLOOD COUNT [id number] RDW-SD 44.4 fL 8 Unknown COMPLETE BLOOD COUNT [id number] Basophil Abs 0.03 10e9/L 09/05 Unknown GFR CALC [id number] GFR Non Afr Amr 53 mL/min 09/27/2017 Unk nown GFR CALC [id number] GFR Afr Amr >60 mL/min 09/27/2017 Unknow n GLYCOSYLATED HEMOGLOBIN TEST 32354 Hgb A1c 90596-8 5.4 % 0 09/27/2017 Unknown MEAN GLUC 8337007 Calc Mean Gluc 108 mg/dL 09/27/2017 Unkn own MEAN GLUC [id number] Calc Mean Gluc 114 mg/dL 11/01/2016 Unkn own LIPID GROUP 03635 Cholesterol 146 mg/dL 11/01/2016 Unkno wn LIPID GROUP 58314 Triglyceride 119 mg/dL 11/01/2016 Unkn own LIPID GROUP 67797 HDL CHOLESTEROL 47 mg/dL 11/01/2016 U nknown LIPID GROUP 75933 Chol/HDL Ratio 3.11 ratio 11/01/2016 U nknown LIPID GROUP 88399 NON-HDL Chol 99 mg/dL 11/01/2016 Unkn own LIPID GROUP 18164 LDL Cholesterol 75 mg/dL 11/01/2016 U nknown GLYCOSYLATED HEMOGLOBIN TEST 81383 Hgb A1c 07671-5 5.6 % 0 11/01/2016 Unknown COMPREHENSIVE METABOLIC 02609 AST 22 U/L 2016 Unknown COMPREHENSIVE METABOLIC 22466 ALT 12 U/L 2016 Unknown COMPREHENSIVE METABOLIC 60427 BUN 17 mg/dL 2016 Unknown COMPREHENSIVE METABOLIC 84339 ALBUMIN 4.0 g/dL 2016 Unknown COMPREHENSIVE METABOLIC 40439 CHLORIDE 110 mmol/L 11/01 Unknown COMPREHENSIVE METABOLIC 90088 Bili Total 0.4 mg/dL 11/01 Unknown COMPREHENSIVE METABOLIC 64242 ALK PHOS 63 U/L 2016 Unknown COMPREHENSIVE METABOLIC 26338 SODIUM 140 mmol/L 11/01 Unknown COMPREHENSIVE METABOLIC 07528 CREATININE 1.05 mg/dL 10/06 Unknown COMPREHENSIVE METABOLIC 16320 CALCIUM 9.2 mg/dL 2016 Unknown COMPREHENSIVE METABOLIC 07577 POTASSIUM 4.2 mmol/L 11/01 Unknown COMPREHENSIVE METABOLIC [address] Total Protein 6.2 g/dL Unknown COMPREHENSIVE METABOLIC 79696 Glucose 87 mg/dL 2016 Unknown COMPREHENSIVE METABOLIC 53409 Bicarbonate 24 mmol/L 10/06 Unknown COMPREHENSIVE METABOLIC 53750 AGAP 6 mmol/L 2016 Unknown GFR CALC [id number] GFR Non Afr Amr 51 mL/min 11/01/2016 Unk nown GFR CALC [id number] GFR Afr Amr >60 mL/min 11/01/2016 Unknow n COMPLETE BLOOD COUNT [id number] WBC 6.7 10e9/L 11/02/19 17 Unknown COMPLETE BLOOD COUNT [id number] RBC 4.04 10e12/L 2016 Unknown COMPLETE BLOOD COUNT [id number] HEMOGLOBIN 12.1 g/dL 11/02/19 17 Unknown COMPLETE BLOOD COUNT 4578068 HEMATOCRIT 38.0 % 11/02/19 17 Unknown COMPLETE BLOOD COUNT 4941977 MCV 94.1 fL 7 Unknown COMPLETE BLOOD COUNT 3023217 MCH 30.0 pg 7 Unknown COMPLETE BLOOD COUNT 3813357 MCHC 31.8 g/dL 7 Unknown COMPLETE BLOOD COUNT 0769569 PLATELET COUNT 206 10e9/L Unknown COMPLETE BLOOD COUNT 2324354 Mean Plt Volume 11.3 fL Unknown COMPLETE BLOOD COUNT 9174404 Neut Auto 35.8 % 7 Unknown COMPLETE BLOOD COUNT 4404113 Lymph Auto 51.6 % 11/02/19 17 Unknown COMPLETE BLOOD COUNT 9526008 [place] Auto 8.8 % 7 Unknown COMPLETE BLOOD COUNT 7058490 RDW 13.5 % 7 Unknown COMPLETE BLOOD COUNT 0520409 Eos Auto 3.4 % 7 Unknown COMPLETE BLOOD COUNT 4056895 Baso Auto 0.4 % 7 Unknown COMPLETE BLOOD COUNT 4815551 Neutrophil Abs 2.40 10e9/L Unknown COMPLETE BLOOD COUNT 9735069 Lymphocyte Abs 3.46 10e9/L Unknown COMPLETE BLOOD COUNT 0620362 Monocyte Abs 0.59 10e9/L 10/06 Unknown COMPLETE BLOOD COUNT 2579150 Eosinophil Abs 0.23 10e9/L Unknown COMPLETE BLOOD COUNT 1607408 RDW-SD 45.3 fL 7 Unknown COMPLETE BLOOD COUNT 5128250 Basophil Abs 0.03 10e9/L 10/06 Unknown THYROID STIMULATING HORMONE 05021 TSH 1.981 uIU/mL 11/01/2016 Unknown COMPLETE BLOOD COUNT 9868389 WBC 6.0 10e9/L 05/14/19 17 Unknown COMPLETE BLOOD COUNT 8605856 RBC 4.29 10e12/L 2016 Unknown COMPLETE BLOOD COUNT 8284183 HEMOGLOBIN 12.9 g/dL 05/14/19 17 Unknown COMPLETE BLOOD COUNT 6257323 HEMATOCRIT 38.4 % 05/14/19 17 Unknown COMPLETE BLOOD COUNT 3249559 MCV 89.5 fL 7 Unknown COMPLETE BLOOD COUNT 4167733 MCH 30.1 pg 7 Unknown COMPLETE BLOOD COUNT 4374703 MCHC 33.6 g/dL 7 Unknown COMPLETE BLOOD COUNT 4211910 PLATELET COUNT 181 10e9/L 11/2016 Unknown COMPLETE BLOOD COUNT 5486513 Mean Plt Volume 11.7 fL 11/2016 Unknown COMPLETE BLOOD COUNT 0925382 Neut Auto 36.9 % 7 Unknown COMPLETE BLOOD COUNT 3186306 Lymph Auto 50.4 % 05/14/19 17 Unknown COMPLETE BLOOD COUNT 4892626 [place] Auto 9.0 % 7 Unknown COMPLETE BLOOD COUNT 9400503 RDW 13.7 % 7 Unknown COMPLETE BLOOD COUNT 2557200 Eos Auto 3.4 % 7 Unknown COMPLETE BLOOD COUNT 3339829 Baso Auto 0.3 % 7 Unknown COMPLETE BLOOD COUNT 2036048 Neutrophil Abs 2.21 10e9/L Unknown COMPLETE BLOOD COUNT 6880018 Lymphocyte Abs 3.02 10e9/L Unknown COMPLETE BLOOD COUNT 8037575 Monocyte Abs 0.54 10e9/L 11/2016 Unknown COMPLETE BLOOD COUNT 1300707 Eosinophil Abs 0.20 10e9/L Unknown COMPLETE BLOOD COUNT 4656966 RDW-SD 44.0 fL 7 Unknown COMPLETE BLOOD COUNT 6976665 Basophil Abs 0.02 10e9/L 11/2016 Unknown GLYCOSYLATED HEMOGLOBIN TEST 46120 Hgb A1c 18709-7 5.4 % 0 05/13/2016 Unknown THYROID STIMULATING HORMONE 98052 TSH 2.200 uIU/mL 05/13/2016 Unknown GFR CALC 8448810 GFR Non Afr Amr 50 mL/min 05/13/2016 Unk nown GFR CALC 5590456 GFR Afr Amr >60 mL/min 05/13/2016 Unknow n MEAN GLUC 6821762 Calc Mean Gluc 108 mg/dL 05/13/2016 Unkn own COMPREHENSIVE METABOLIC 30577 AST 18 U/L 2016 Unknown COMPREHENSIVE METABOLIC 71129 ALT 10 U/L 2016 Unknown COMPREHENSIVE METABOLIC 31154 BUN 20 mg/dL 2016 Unknown COMPREHENSIVE METABOLIC 01650 ALBUMIN 4.1 g/dL 2016 Unknown COMPREHENSIVE METABOLIC 28144 CHLORIDE 109 mmol/L 05/13 Unknown COMPREHENSIVE METABOLIC 97279 Bili Total 0.6 mg/dL 05/13 Unknown COMPREHENSIVE METABOLIC 72548 ALK PHOS 64 U/L 2016 Unknown COMPREHENSIVE METABOLIC 28103 SODIUM 141 mmol/L 05/13 Unknown COMPREHENSIVE METABOLIC 69234 CREATININE 1.06 mg/dL 11/2016 Unknown COMPREHENSIVE METABOLIC 27558 CALCIUM 9.9 mg/dL 2016 Unknown COMPREHENSIVE METABOLIC 27685 POTASSIUM 4.2 mmol/L 05/13 Unknown COMPREHENSIVE METABOLIC 34159 Total Protein 6.3 g/dL Unknown COMPREHENSIVE METABOLIC 08040 Glucose 99 mg/dL 2016 Unknown COMPREHENSIVE METABOLIC 92760 Bicarbonate 21 mmol/L 11/2016 Unknown COMPREHENSIVE METABOLIC 51117 AGAP 11 mmol/L 2016 Unknown LIPID GROUP 48828 Cholesterol 169 mg/dL 11/25/2015 Unkno wn LIPID GROUP 50406 Triglyceride 165 mg/dL 11/25/2015 Unkn own LIPID GROUP 38376 HDL CHOLESTEROL 43 mg/dL 11/25/2015 U nknown LIPID GROUP 88644 Chol/HDL Ratio 3.93 ratio 11/25/2015 U nknown LIPID GROUP 99956 NON-HDL Chol 126 mg/dL 11/25/2015 Unkn own LIPID GROUP 06033 LDL Cholesterol 93 mg/dL 11/25/2015 U nknown COMPREHENSIVE METABOLIC 96570 AST 18 U/L 2015 Unknown COMPREHENSIVE METABOLIC 36069 ALT 10 U/L 2015 Unknown COMPREHENSIVE METABOLIC 38400 BUN 20 mg/dL 2015 Unknown COMPREHENSIVE METABOLIC 36812 ALBUMIN 3.9 g/dL 2015 Unknown COMPREHENSIVE METABOLIC 82926 CHLORIDE 110 mmol/L 11/24 Unknown COMPREHENSIVE METABOLIC 44562 Bili Total 0.5 mg/dL 11/24 Unknown COMPREHENSIVE METABOLIC 62321 ALK PHOS 72 U/L 2015 Unknown COMPREHENSIVE METABOLIC 92009 SODIUM 141 mmol/L 11/24 Unknown COMPREHENSIVE METABOLIC 94687 CREATININE 1.12 mg/dL 11/06 Unknown COMPREHENSIVE METABOLIC 28278 CALCIUM 9.7 mg/dL 2015 Unknown COMPREHENSIVE METABOLIC 51223 POTASSIUM 4.4 mmol/L 11/24 Unknown COMPREHENSIVE METABOLIC 71898 Total Protein 6.2 g/dL Unknown COMPREHENSIVE METABOLIC 17403 Glucose 90 mg/dL 2015 Unknown COMPREHENSIVE METABOLIC 93152 Bicarbonate 23 mmol/L 11/06 Unknown COMPREHENSIVE METABOLIC 25417 AGAP 8 mmol/L 2015 Unknown GFR CALC 8855658 GFR Non Afr Amr 47 mL/min 11/25/2015 Unk nown GFR CALC 2238884 GFR Afr Amr 57 mL/min 11/25/2015 Unknown GLYCOSYLATED HEMOGLOBIN TEST 56417 Hgb A1c 18070-9 5.5 % 0 11/25/2015 Unknown THYROID STIMULATING HORMONE 24996 TSH 2.537 uIU/mL 11/25/2015 Unknown FREE T4 60771 T4 Free 1.36 ng/dL 11/25/2015 Unknown COMPLETE BLOOD COUNT 5231128 WBC 6.8 10e9/L 11/25/19 16 Unknown COMPLETE BLOOD COUNT 2449254 RBC 4.20 10e12/L 2015 Unknown COMPLETE BLOOD COUNT 0331124 HEMOGLOBIN 12.5 g/dL 11/25/19 16 Unknown COMPLETE BLOOD COUNT 7213562 HEMATOCRIT 38.0 % 11/25/19 16 Unknown COMPLETE BLOOD COUNT 7443425 MCV 90.5 fL 6 Unknown COMPLETE BLOOD COUNT 0627246 MCH 29.8 pg 6 Unknown COMPLETE BLOOD COUNT 5626206 MCHC 32.9 g/dL 6 Unknown COMPLETE BLOOD COUNT 8169060 PLATELET COUNT 197 10e9/L Unknown COMPLETE BLOOD COUNT 8009474 Mean Plt Volume 11.7 fL Unknown COMPLETE BLOOD COUNT 4444773 Neut Auto 41.3 % 6 Unknown COMPLETE BLOOD COUNT 1023571 Lymph Auto 47.1 % 11/25/19 16 Unknown COMPLETE BLOOD COUNT 6039112 [place] Auto 7.8 % 6 Unknown COMPLETE BLOOD COUNT 1153757 RDW 13.8 % 6 Unknown COMPLETE BLOOD COUNT 6148190 Eos Auto 3.4 % 6 Unknown COMPLETE BLOOD COUNT 0301273 Baso Auto 0.4 % 6 Unknown COMPLETE BLOOD COUNT 7084203 Neutrophil Abs 2.81 10e9/L Unknown COMPLETE BLOOD COUNT 4325107 Lymphocyte Abs 3.20 10e9/L Unknown COMPLETE BLOOD COUNT 7000352 Monocyte Abs 0.53 10e9/L 11/06 Unknown COMPLETE BLOOD COUNT 9543265 Eosinophil Abs 0.23 10e9/L Unknown COMPLETE BLOOD COUNT 2993127 RDW-SD 44.4 fL 6 Unknown COMPLETE BLOOD COUNT 8588935 Basophil Abs 0.03 10e9/L 11/06 Unknown MEAN GLUC 1640721 Calc Mean Gluc 111 mg/dL 11/25/2015 [place] [address] Glucose 89 MG/DL 02/19 [place] [address] CREATININE 1.12 MG/DL [place] [address] BUN 20 MG/DL 02/19 [place] [address] SODIUM 139 MMOL/L 02/04 [place] [address] POTASSIUM 4.6 MMOL/L 02/04 [place] [address] CHLORIDE 108 MMOL/L 02/04 [place] [address] BICARB 26 MMOL/L 02/19 [place] [address] ANION GAP 5 MEQ/L 02/19 [place] [address] CALCIUM 10.0 MG/DL 02/04 Unknown GFR CALC 0230109 GFR AA 57.0L ML/MIN 02/19/2015 Unknow n GFR CALC 1368273 GFR NON-AA 47.0L ML/MIN 02/19/2015 Unkno wn THYROID STIMULATING HORMONE 28297 TSH 2.378 uIU/ML 11/14/2014 Unknown COMPLETE BLOOD COUNT 0019396 WBC 6.4 10e9/L 11/15/19 15 Unknown COMPLETE BLOOD COUNT 9550221 RBC 3.99 10e12/L 2014 Unknown COMPLETE BLOOD COUNT 3517325 HGB 11.9 g/dL 5 Unknown COMPLETE BLOOD COUNT 3664196 HCT DET 36.9 % 5 Unknown COMPLETE BLOOD COUNT 7056857 MCV 92.5 fL 5 Unknown COMPLETE BLOOD COUNT 4726115 MCH 29.8 pg 5 Unknown COMPLETE BLOOD COUNT 6038693 MCHC 32.2 g/dL 5 Unknown COMPLETE BLOOD COUNT 4980365 PLT 172 10e9/L 11/15/19 15 Unknown COMPLETE BLOOD COUNT 1529832 MPV 11.7 fL 5 Unknown COMPLETE BLOOD COUNT 3708781 [place] % 40.4 % 5 Unknown COMPLETE BLOOD COUNT 3797371 LY % 48.0 % 5 Unknown COMPLETE BLOOD COUNT 4248652 MON % 8.3 % 5 Unknown COMPLETE BLOOD COUNT 5575717 EOS % 2.8 % 5 Unknown COMPLETE BLOOD COUNT 4737662 BASO % 0.5 % 5 Unknown COMPLETE BLOOD COUNT 8247479 RDW 13.6 % 5 Unknown COMPLETE BLOOD COUNT 3792513 ABS CINTHYA 2.59 10e9/L 015 Unknown COMPLETE BLOOD COUNT 2836921 ABS LYMPH 3.07 10e9/L 015 Unknown COMPLETE BLOOD COUNT 7033786 ABS MONO 0.53 10e9/L 015 Unknown COMPLETE BLOOD COUNT 5047697 ABS EOS 0.18 10e9/L 015 Unknown COMPLETE BLOOD COUNT 3367813 ABS BASO 0.03 10e9/L 015 Unknown COMPLETE BLOOD COUNT 1444660 RDW-SD 44.9 fL 5 Unknown LIPID GROUP 20992 HDL TEST 42 MG/DL 11/14/2014 Unknown LIPID GROUP 99426 TRIG 177 MG/DL 11/14/2014 Unknown LIPID GROUP 72703 TEST LDL 72 MG/DL 11/14/2014 Unknown LIPID GROUP 23348 CHOL 149 MG/DL 11/14/2014 Unknown LIPID GROUP 05989 RCHOL/HDL 3.55 RATIO 11/14/2014 Unknow n LIPID GROUP 54658 NON-HDL CH 107 MG/DL 11/14/2014 Unknow n GLYCOSYLATED HEMOGLOBIN TEST 71554 A1C HPLC 22423-5 5.5 % 0 11/14/2014 Unknown FREE T4 94754 FREE T4 1.39 NG/DL 11/14/2014 Unknown GFR CALC 4161918 GFR AA 55.0L ML/MIN 11/14/2014 Unknow n GFR CALC 5381365 GFR NON-AA 46.0L ML/MIN 11/14/2014 Unkno wn COMPREHENSIVE METABOLIC 73017 AST 17 U/L 2014 Unknown COMPREHENSIVE METABOLIC 56016 ALT 10 IU/L 2014 Unknown COMPREHENSIVE METABOLIC 19995 BUN 20 MG/DL 2014 Unknown COMPREHENSIVE METABOLIC 27916 ALBUMIN 3.9 GM/DL 2014 Unknown COMPREHENSIVE METABOLIC 46274 CHLORIDE 111 MMOL/L 11/14 Unknown COMPREHENSIVE METABOLIC 04379 BILI TOT 0.4 MG/DL 2014 Unknown COMPREHENSIVE METABOLIC 32799 ALK PHOS 70 U/L 2014 Unknown COMPREHENSIVE METABOLIC 70838 SODIUM 142 MMOL/L 11/14 Unknown COMPREHENSIVE METABOLIC 41506 CREATININE 1.16 MG/DL 11/05 Unknown COMPREHENSIVE METABOLIC 86792 CALCIUM 9.4 MG/DL 2014 Unknown COMPREHENSIVE METABOLIC 83343 POTASSIUM 4.6 MMOL/L 11/14 Unknown COMPREHENSIVE METABOLIC 81061 PROT TOT 6.2 GM/DL 2014 Unknown COMPREHENSIVE METABOLIC 43457 Glucose 90 MG/DL 2014 Unknown COMPREHENSIVE METABOLIC 24219 BICARB 24 MMOL/L 2014 Unknown COMPREHENSIVE METABOLIC 84200 ANION GAP 7 MEQ/L 2014 Unknown THYROID STIMULATING HORMONE 76958 TSH 2.427 uIU/ML 05/10/2014 Unknown LIPID GROUP 19246 HDL TEST 47 MG/DL 05/10/2014 Unknown LIPID GROUP 76952 TRIG 145 MG/DL 05/10/2014 Unknown LIPID GROUP 25439 TEST LDL 73 MG/DL 05/10/2014 Unknown LIPID GROUP 70061 CHOL 149 MG/DL 05/10/2014 Unknown LIPID GROUP 20790 RCHOL/HDL 3.17 RATIO 05/10/2014 Unknow n LIPID GROUP 76844 NON-HDL CH 102 MG/DL 05/10/2014 Unknow n COMPREHENSIVE METABOLIC 95977 AST 17 U/L 2014 Unknown COMPREHENSIVE METABOLIC 90847 ALT 9 IU/L 2014 Unknown COMPREHENSIVE METABOLIC 04448 BUN 19 MG/DL 2014 Unknown COMPREHENSIVE METABOLIC 58908 ALBUMIN 4.3 GM/DL 2014 Unknown COMPREHENSIVE METABOLIC 03246 CHLORIDE 108 MMOL/L 05/10 Unknown COMPREHENSIVE METABOLIC 26731 BILI TOT 0.5 MG/DL 2014 Unknown COMPREHENSIVE METABOLIC 88359 ALK PHOS 68 U/L 2014 Unknown COMPREHENSIVE METABOLIC 30042 SODIUM 140 MMOL/L 05/10 Unknown COMPREHENSIVE METABOLIC 34850 CREATININE 1.08 MG/DL 08/2014 Unknown COMPREHENSIVE METABOLIC 91329 CALCIUM 9.9 MG/DL 2014 Unknown COMPREHENSIVE METABOLIC 70940 POTASSIUM 4.3 MMOL/L 05/10 Unknown COMPREHENSIVE METABOLIC 87608 PROT TOT 7.2 GM/DL 2014 Unknown COMPREHENSIVE METABOLIC 83293 Glucose 94 MG/DL 2014 Unknown COMPREHENSIVE METABOLIC 79038 BICARB 26 MMOL/L 2014 Unknown COMPREHENSIVE METABOLIC 06229 ANION GAP 6 MEQ/L 2014 Unknown GFR CALC 6506805 GFR AA 60.0L ML/MIN 05/10/2014 Unknow n GFR CALC 1875581 GFR NON-AA 49.0L ML/MIN 05/10/2014 Unkno wn GLYCOSYLATED HEMOGLOBIN TEST 26618 A1C HPLC 69188-6 5.6 % 0 05/10/2014 Unknown COMPLETE BLOOD COUNT 1618887 WBC 7.2 10e9/L 05/11/19 15 Unknown COMPLETE BLOOD COUNT 5492604 RBC 4.28 10e12/L 2014 Unknown COMPLETE BLOOD COUNT 4440635 HGB 12.8 g/dL 5 Unknown COMPLETE BLOOD COUNT 6877849 HCT DET 39.3 % 5 Unknown COMPLETE BLOOD COUNT 5048512 MCV 91.8 fL 5 Unknown COMPLETE BLOOD COUNT 5431649 MCH 29.9 pg 5 Unknown COMPLETE BLOOD COUNT 5453787 MCHC 32.6 g/dL 5 Unknown COMPLETE BLOOD COUNT 9755083 PLT 189 10e9/L 05/11/19 15 Unknown COMPLETE BLOOD COUNT 7072852 MPV 11.2 fL 5 Unknown COMPLETE BLOOD COUNT 5327839 [place] % 38.0 % 5 Unknown COMPLETE BLOOD COUNT 0521755 LY % 51.0 % 5 Unknown COMPLETE BLOOD COUNT 6441784 MON % 7.7 % 5 Unknown COMPLETE BLOOD COUNT 1756686 EOS % 2.9 % 5 Unknown COMPLETE BLOOD COUNT 6591046 BASO % 0.4 % 5 Unknown COMPLETE BLOOD COUNT 7205368 RDW 14.0 % 5 Unknown COMPLETE BLOOD COUNT 2155403 ABS C[place] 2.74 10e9/L 015 Unknown COMPLETE BLOOD COUNT 7130350 ABS LYMPH 3.67 10e9/L 015 Unknown COMPLETE BLOOD COUNT 4611011 ABS MONO 0.55 10e9/L 015 Unknown COMPLETE BLOOD COUNT 9880544 ABS EOS 0.21 10e9/L 015 Unknown COMPLETE BLOOD COUNT 9942694 ABS BASO 0.03 10e9/L 015 Unknown COMPLETE BLOOD COUNT 7577305 RDW-SD 46.1 fL 5 Unknown FREE T4 78992 FREE T4 1.14 NG/DL 05/10/2014 Unknown GLYCOSYLATED HEMOGLOBIN TEST 36629 A1C HPLC 19782-1 5.2 % 0 03/29/2013 Unknown FREE T4 77865 FREE T4 1.40 NG/DL 03/28/2013 Unknown GFR CALC 8456820 GFR AA >60 ML/MIN 03/28/2013 Unknown GFR CALC 5654978 GFR NON-AA 52.0L ML/MIN 03/28/2013 Unkno wn COMPREHENSIVE METABOLIC 67691 AST 15 U/L 2013 Unknown COMPREHENSIVE METABOLIC 04337 ALT 9 IU/L 2013 Unknown COMPREHENSIVE METABOLIC 71462 BUN 17 MG/DL 2013 Unknown COMPREHENSIVE METABOLIC 45990 ALBUMIN 4.0 GM/DL 2013 Unknown COMPREHENSIVE METABOLIC 40471 CHLORIDE 112 MMOL/L 03/28 Unknown COMPREHENSIVE METABOLIC 32102 BILI TOT 0.5 MG/DL 2013 Unknown COMPREHENSIVE METABOLIC 56844 ALK PHOS 66 U/L 2013 Unknown COMPREHENSIVE METABOLIC 92349 SODIUM 140 MMOL/L 03/28 Unknown COMPREHENSIVE METABOLIC 00865 CREATININE 1.03 MG/DL 03/08 Unknown COMPREHENSIVE METABOLIC 02464 CALCIUM 9.5 MG/DL 2013 Unknown COMPREHENSIVE METABOLIC 63096 POTASSIUM 4.1 MMOL/L 03/28 Unknown COMPREHENSIVE METABOLIC 85551 PROT TOT 6.2 GM/DL 2013 Unknown COMPREHENSIVE METABOLIC 48196 Glucose 102 MG/DL 2013 Unknown COMPREHENSIVE METABOLIC 26639 BICARB 23 MMOL/L 2013 Unknown COMPREHENSIVE METABOLIC 04346 ANION GAP 5 MEQ/L 2013 Unknown THYROID STIMULATING HORMONE 96237 TSH 2.074 uIU/ML 03/28/2013 Unknown VITAMIN B 12 FOLIC ACID 02983|55083 VIT B 12 423 PG/ML 03/08 Unknown VITAMIN B 12 FOLIC ACID 71982|97302 FOLIC ACID 19.7 NG/ML Unknown LIPID GROUP 25215 HDL TEST 40 MG/DL 03/28/2013 Unknown LIPID GROUP 42067 TRIG 145 MG/DL 03/28/2013 Unknown LIPID GROUP 13636 TEST LDL 81 MG/DL 03/28/2013 Unknown LIPID GROUP 46824 CHOL 150 MG/DL 03/28/2013 Unknown LIPID GROUP 15813 RCHOL/HDL 3.75 RATIO 03/28/2013 Unknow n COMPLETE BLOOD COUNT 4032216 WBC 6.0 10e9/L 03/28/19 14 Unknown COMPLETE BLOOD COUNT 6539161 RBC 4.26 10e12/L 2013 Unknown COMPLETE BLOOD COUNT 9323884 HGB 12.7 g/dL 4 Unknown COMPLETE BLOOD COUNT 2477926 HCT DET 38.7 % 4 Unknown COMPLETE BLOOD COUNT 4554395 MCV 90.8 fL 4 Unknown COMPLETE BLOOD COUNT 5079894 MCH 29.8 pg 4 Unknown COMPLETE BLOOD COUNT 2495942 MCHC 32.8 g/dL 4 Unknown COMPLETE BLOOD COUNT 7988328 PLT 178 10e9/L 03/28/19 14 Unknown COMPLETE BLOOD COUNT 8198741 MPV 11.7 fL 4 Unknown COMPLETE BLOOD COUNT 9876301 [place] % 30.5 % 4 Unknown COMPLETE BLOOD COUNT 2095211 LY % 55.4 % 4 Unknown COMPLETE BLOOD COUNT 9733487 MON % 9.0 % 4 Unknown COMPLETE BLOOD COUNT 3114212 EOS % 4.4 % 4 Unknown COMPLETE BLOOD COUNT 8931514 BASO % 0.7 % 4 Unknown COMPLETE BLOOD COUNT 6860977 RDW 13.3 % 4 Unknown COMPLETE BLOOD COUNT 7163542 ABS CINTHYA 1.83 10e9/L 014 Unknown COMPLETE BLOOD COUNT 2919129 ABS LYMPH 3.32 10e9/L 014 Unknown COMPLETE BLOOD COUNT 3460780 ABS MONO 0.54 10e9/L 014 Unknown COMPLETE BLOOD COUNT 4469829 ABS EOS 0.26 10e9/L 014 Unknown COMPLETE BLOOD COUNT 5080720 ABS BASO 0.04 10e9/L 014 Unknown COMPLETE BLOOD COUNT 2178371 RDW-SD 43.2 fL 4 Unknown HEMOGLOBIN A1C (GLYCOSYLATED) 6010300 A1C HPLC 25852-3 5.5 % 02/24/2012 Unknown COMPLETE BLOOD COUNT 6302179 WBC 6.0 10e9/L 02/23/20 12 Unknown COMPLETE BLOOD COUNT 9592211 RBC 4.22 10e12/L 2011 Unknown COMPLETE BLOOD COUNT 9575986 HGB 12.4 g/dL 2 Unknown COMPLETE BLOOD COUNT 6673243 HCT DET 38.2 % 2 Unknown COMPLETE BLOOD COUNT 0706598 MCV 90.5 fL 2 Unknown COMPLETE BLOOD COUNT 6928301 MCH 29.4 pg 2 Unknown COMPLETE BLOOD COUNT 7920073 MCHC 32.5 g/dL 2 Unknown COMPLETE BLOOD COUNT 7223910 PLT 187 10e9/L 02/23/20 12 Unknown COMPLETE BLOOD COUNT 2772660 MPV 11.5 fL 2 Unknown COMPLETE BLOOD COUNT 8284157 C[place]TH[place] % 36.4 % 2 Unknown COMPLETE BLOOD COUNT 1693779 LY % 51.0 % 2 Unknown COMPLETE BLOOD COUNT 4763614 MON % 8.7 % 2 Unknown COMPLETE BLOOD COUNT 7400659 EOS % 3.2 % 2 Unknown COMPLETE BLOOD COUNT 7884569 BASO % 0.7 % 2 Unknown COMPLETE BLOOD COUNT 2281889 RDW 13.7 % 2 Unknown COMPLETE BLOOD COUNT 5291472 ABS CINTHYA 2.18 10e9/L 012 Unknown COMPLETE BLOOD COUNT 8288464 ABS LYMPH 3.06 10e9/L 012 Unknown COMPLETE BLOOD COUNT 0456445 ABS MONO 0.52 10e9/L 012 Unknown COMPLETE BLOOD COUNT 5478137 ABS EOS 0.19 10e9/L 012 Unknown COMPLETE BLOOD COUNT 2800107 ABS BASO 0.04 10e9/L 012 Unknown COMPLETE BLOOD COUNT 2828717 RDW-SD 44.3 fL 2 Unknown LIPID GROUP 27415 HDL TEST 42 MG/DL 02/23/2012 Unknown LIPID GROUP 48149 TRIG 156 MG/DL 02/23/2012 Unknown LIPID GROUP 91074 TEST LDL 80 MG/DL 02/23/2012 Unknown LIPID GROUP 18142 CHOL 153 MG/DL 02/23/2012 Unknown LIPID GROUP 24059 RCHOL/HDL 3.64 RATIO 02/23/2012 Unknow n FREE T4 00482 FREE T4 1.22 NG/DL 02/23/2012 Unknown COMPREHENSIVE METABOLIC 61025 AST 20 U/L 2011 Unknown COMPREHENSIVE METABOLIC 67074 ALT 11 IU/L 2011 Unknown COMPREHENSIVE METABOLIC 03994 BUN 19 MG/DL 2011 Unknown COMPREHENSIVE METABOLIC 11353 ALBUMIN 4.3 GM/DL 2011 Unknown COMPREHENSIVE METABOLIC 47044 CHLORIDE 109 MMOL/L 02/22 Unknown COMPREHENSIVE METABOLIC 55167 BILI TOT 0.6 MG/DL 2011 Unknown COMPREHENSIVE METABOLIC 85597 ALK PHOS 84 U/L 2011 Unknown COMPREHENSIVE METABOLIC 70641 SODIUM 142 MMOL/L 02/22 Unknown COMPREHENSIVE METABOLIC 15588 CREATININE 1.09 MG/DL 02/04 Unknown COMPREHENSIVE METABOLIC 22638 CALCIUM 9.8 MG/DL 2011 Unknown COMPREHENSIVE METABOLIC 21467 POTASSIUM 4.2 MMOL/L 02/22 Unknown COMPREHENSIVE METABOLIC 43444 PROT TOT 6.4 GM/DL 2011 Unknown COMPREHENSIVE METABOLIC 31063 Glucose 89 MG/DL 2011 Unknown COMPREHENSIVE METABOLIC 10097 BICARB 25 MMOL/L 2011 Unknown COMPREHENSIVE METABOLIC 72682 ANION GAP 8 MEQ/L 2011 Unknown GFR CALC 0484650 GFR AA 60.0L ML/MIN 02/23/2012 Unknow n GFR CALC 3331303 GFR NON-AA 49.0L ML/MIN 02/23/2012 Unkno wn THYROID STIMULATING HORMONE 26545 TSH 2.450 uIU/ML 02/23/2012 Unknown COMPREHENSIVE METABOLIC 39429 AST 22 U/L 2011 Unknown COMPREHENSIVE METABOLIC 45308 ALT 14 IU/L 2011 Unknown COMPREHENSIVE METABOLIC 23334 BUN 21 MG/DL 2011 Unknown COMPREHENSIVE METABOLIC 82667 ALBUMIN 4.3 GM/DL 2011 Unknown COMPREHENSIVE METABOLIC 98097 CHLORIDE 106 MMOL/L 04/01 Unknown COMPREHENSIVE METABOLIC 37167 BILI TOT 0.4 MG/DL 2011 Unknown COMPREHENSIVE METABOLIC 65182 ALK PHOS 80 U/L 2011 Unknown COMPREHENSIVE METABOLIC 85872 SODIUM 141 MMOL/L 04/01 Unknown COMPREHENSIVE METABOLIC 89509 CREATININE 1.13 MG/DL 03/08 Unknown COMPREHENSIVE METABOLIC 76861 CALCIUM 9.4 MG/DL 2011 Unknown COMPREHENSIVE METABOLIC 88091 POTASSIUM 4.3 MMOL/L 04/01 Unknown COMPREHENSIVE METABOLIC 54001 PROT TOT 6.7 GM/DL 2011 Unknown COMPREHENSIVE METABOLIC 10794 Glucose 98 MG/DL 2011 Unknown COMPREHENSIVE METABOLIC 05868 BICARB 25 MMOL/L 2011 Unknown COMPREHENSIVE METABOLIC 16055 ANION GAP 10 MEQ/L 2011 Unknown LIPID GROUP 54089 HDL TEST 44 MG/DL 04/01/2011 Unknown LIPID GROUP 23666 TRIG 164 MG/DL 04/01/2011 Unknown LIPID GROUP 88312 TEST LDL 98 MG/DL 04/01/2011 Unknown LIPID GROUP 32418 CHOL 175 MG/DL 04/01/2011 Unknown LIPID GROUP 29550 RCHOL/HDL 3.98 RATIO 04/01/2011 Unknow n COMPLETE BLOOD COUNT 03130 WBC 6.7 10e9/L 04/01/19 12 Unknown COMPLETE BLOOD COUNT 03437 RBC 4.36 10e12/L 2011 Unknown COMPLETE BLOOD COUNT 83154 HGB 12.9 g/dL 2 Unknown COMPLETE BLOOD COUNT 66854 HCT DET 39.4 % 2 Unknown COMPLETE BLOOD COUNT 39846 MCV 90.4 fL 2 Unknown COMPLETE BLOOD COUNT 98783 MCH 29.6 pg 2 Unknown COMPLETE BLOOD COUNT 39510 MCHC 32.7 g/dL 2 Unknown COMPLETE BLOOD COUNT 81270 PLT 184 10e9/L 04/01/19 12 Unknown COMPLETE BLOOD COUNT 54758 MPV 10.9 fL 2 Unknown COMPLETE BLOOD COUNT 04765 CINTHYA % 41.5 % 2 Unknown COMPLETE BLOOD COUNT 84000 LY % 45.7 % 2 Unknown COMPLETE BLOOD COUNT 31447 MON % 9.4 % 2 Unknown COMPLETE BLOOD COUNT 75113 EOS % 3.0 % 2 Unknown COMPLETE BLOOD COUNT 13482 BASO % 0.4 % 2 Unknown COMPLETE BLOOD COUNT 10826 RDW 13.2 % 2 Unknown COMPLETE BLOOD COUNT 02238 ABS CINTHYA 2.78 10e9/L 012 Unknown COMPLETE BLOOD COUNT 54257 ABS LYMPH 3.06 10e9/L 012 Unknown COMPLETE BLOOD COUNT 54056 ABS MONO 0.63 10e9/L 012 Unknown COMPLETE BLOOD COUNT 63179 ABS EOS 0.20 10e9/L 012 Unknown COMPLETE BLOOD COUNT 77315 ABS BASO 0.03 10e9/L 012 Unknown COMPLETE BLOOD COUNT 64453 RDW-SD 42.3 fL 2 Unknown GFR CALC 1647074 GFR AA 57.0L ML/MIN 04/01/2011 Unknow n GFR CALC 5672685 GFR NON-AA 47.0L ML/MIN 04/01/2011 Unkno wn THYROID STIMULATING HORMONE 04496 TSH 2.663 uIU/ML 04/01/2011 Unknown FREE T4 72091 FREE T4 1.15 NG/DL 04/01/2011 Unknown THYROID STIMULATING HORMONE 90149 TSH 1.908 uIU/ML 07/06/2010 Unknown COMPLETE BLOOD COUNT 70873 WBC 6.4 10e9/L 07/07/19 11 Unknown COMPLETE BLOOD COUNT 97880 RBC 3.92 10e12/L 2010 Unknown COMPLETE BLOOD COUNT 01984 HGB 11.8 g/dL 1 Unknown COMPLETE BLOOD COUNT 28059 HCT DET 36.0 % 1 Unknown COMPLETE BLOOD COUNT 32893 MCV 91.8 fL 1 Unknown COMPLETE BLOOD COUNT 87444 MCH 30.1 pg 1 Unknown COMPLETE BLOOD COUNT 66260 MCHC 32.8 g/dL 1 Unknown COMPLETE BLOOD COUNT 64444 PLT 176 10e9/L 07/07/19 11 Unknown COMPLETE BLOOD COUNT 00745 MPV 11.4 fL 1 Unknown COMPLETE BLOOD COUNT 60000 CINTHYA % 50.4 % 1 Unknown COMPLETE BLOOD COUNT 12364 LY % 35.5 % 1 Unknown COMPLETE BLOOD COUNT 75929 MON % 10.2 % 1 Unknown COMPLETE BLOOD COUNT 92907 EOS % 3.3 % 1 Unknown COMPLETE BLOOD COUNT 48851 BASO % 0.6 % 1 Unknown COMPLETE BLOOD COUNT 92921 RDW 13.7 % 1 Unknown COMPLETE BLOOD COUNT 20928 ABS CINTHYA 3.23 10e9/L 011 Unknown COMPLETE BLOOD COUNT 26730 ABS LYMPH 2.27 10e9/L 011 Unknown COMPLETE BLOOD COUNT 43441 ABS MONO 0.65 10e9/L 011 Unknown COMPLETE BLOOD COUNT 26229 ABS EOS 0.21 10e9/L 011 Unknown COMPLETE BLOOD COUNT 35407 ABS BASO 0.04 10e9/L 011 Unknown COMPLETE BLOOD COUNT 53680 RDW-SD 45.3 fL 1 Unknown GFR CALC [id number] GFR AA >60 ML/MIN 07/06/2010 Unknown GFR CALC [id number] GFR NON-AA 53.0L ML/MIN 07/06/2010 Unkno wn FREE T4 76748 FREE T4 1.20 NG/DL 07/06/2010 Unknown COMPREHENSIVE METABOLIC 56893 AST 17 U/L 2010 Unknown COMPREHENSIVE METABOLIC 93804 ALT 9 IU/L 2010 Unknown COMPREHENSIVE METABOLIC 33077 BUN 16 MG/DL 2010 Unknown COMPREHENSIVE METABOLIC 38094 ALBUMIN 4.0 GM/DL 2010 Unknown COMPREHENSIVE METABOLIC 90995 CHLORIDE 108 MMOL/L 07/06 Unknown COMPREHENSIVE METABOLIC 61398 BILI TOT 0.5 MG/DL 2010 Unknown COMPREHENSIVE METABOLIC 43866 ALK PHOS 76 U/L 2010 Unknown COMPREHENSIVE METABOLIC 16151 SODIUM 139 MMOL/L 07/06 Unknown COMPREHENSIVE METABOLIC 89841 CREATININE 1.02 MG/DL 04/2010 Unknown COMPREHENSIVE METABOLIC 86279 CALCIUM 9.2 MG/DL 2010 Unknown COMPREHENSIVE METABOLIC 33671 POTASSIUM 4.5 MMOL/L 07/06 Unknown COMPREHENSIVE METABOLIC 07897 PROT TOT 6.1 GM/DL 2010 Unknown COMPREHENSIVE METABOLIC 12162 Glucose 93 MG/DL 2010 Unknown COMPREHENSIVE METABOLIC 19995 BICARB 26 MMOL/L 2010 Unknown COMPREHENSIVE METABOLIC 40901 ANION GAP 5 MEQ/L 2010 Unknown LIPID GROUP 80374 HDL TEST 46 MG/DL 07/06/2010 Unknown LIPID GROUP 95411 TRIG 102 MG/DL 07/06/2010 Unknown LIPID GROUP 54297 TEST LDL 88 MG/DL 07/06/2010 Unknown LIPID GROUP 83958 CHOL 154 MG/DL 07/06/2010 Unknown LIPID GROUP 63510 RCHOL/HDL 3.35 RATIO 07/06/2010 Unknow n Procedures Procedure Codes Date ROUTINE VENIPUNCTURE CPT-4: 57119 01/23/2019 LIPID PANEL CPT-4: 67284 01/23/2019 FLU VACC PRSV FREE INC ANTIG 65 AND OLDER CPT-4: 28545 12/26/2018 FLU VACC PRSV FREE INC ANTIG 65 AND OLDER CPT-4: 29205 12/26/2018 ADMIN INFLUENZA VIRUS VAC CPT-4: G0008 12/26/2018 COMPREHEN METABOLIC PANEL CPT-4: 42264 12/15/2018 ROUTINE VENIPUNCTURE CPT-4: 15990 12/15/2018 ROUTINE VENIPUNCTURE CPT-4: 39881 08/14/2018 ASSAY THYROID STIM HORMONE CPT-4: 91737 08/14/2018 COMPREHEN METABOLIC PANEL CPT-4: 57718 08/14/2018 COMPLETE CBC W/AUTO DIFF WBC CPT-4: 92344 08/14/2018 URINALYSIS NONAUTO W/O SCOPE CPT-4: 87955 05/10/2018 URINE CULTURE/ COLONY COUNT CPT-4: 71114 05/10/2018 URINE CULTURE/ COLONY COUNT CPT-4: 58362 12/06/2017 ROUTINE VENIPUNCTURE CPT-4: 28633 11/30/2017 ASSAY OF FREE THYROXINE CPT-4: 46581 11/30/2017 ASSAY THYROID STIM HORMONE CPT-4: 55249 11/30/2017 COMPLETE CBC W/AUTO DIFF WBC CPT-4: 81536 11/30/2017 METABOLIC PANEL TOTAL CA CPT-4: 93444 11/30/2017 FLU VACC PRSV FREE INC ANTIG 65 AND OLDER CPT-4: 96949 11/22/2017 ASSAY, GLUCOSE, BLOOD QUANT CPT-4: 77635 11/22/2017 ADMIN INFLUENZA VIRUS VAC CPT-4: G0008 11/22/2017 ROUTINE VENIPUNCTURE CPT-4: 99331 09/27/2017 COMPREHEN METABOLIC PANEL CPT-4: 60148 09/27/2017 COMPLETE CBC W/AUTO DIFF WBC CPT-4: 04204 09/27/2017 A1C HPLC CPT-4: 74326 09/27/2017 ASSAY OF TROPONIN QUANT CPT-4: 59611 09/27/2017 LIPID PANEL CPT-4: 78629 09/27/2017 THER/PROPH/DIAG INJ SC/IM CPT-4: 04780 05/30/2017 TRIAMCINOLONE ACET INJ NOS CPT-4: J3301 05/30/2017 URINALYSIS NONAUTO W/O SCOPE CPT-4: 34866 04/18/2017 URINE CULTURE/ COLONY COUNT CPT-4: 29118 04/18/2017 FLU VACC PRSV FREE INC ANTIG 65 AND OLDER CPT-4: 42034 12/10/2016 ADMIN INFLUENZA VIRUS VAC CPT-4: G0008 12/10/2016 ROUTINE VENIPUNCTURE CPT-4: 93287 11/01/2016 COMPREHEN METABOLIC PANEL CPT-4: 67539 11/01/2016 COMPLETE CBC W/AUTO DIFF WBC CPT-4: 83103 11/01/2016 LIPID PANEL CPT-4: 88597 11/01/2016 A1C HPLC CPT-4: 86171 11/01/2016 ASSAY THYROID STIM HORMONE CPT-4: 88601 11/01/2016 ROUTINE VENIPUNCTURE CPT-4: 02641 05/13/2016 ASSAY THYROID STIM HORMONE CPT-4: 96474 05/13/2016 COMPREHEN METABOLIC PANEL CPT-4: 90600 05/13/2016 COMPLETE CBC W/AUTO DIFF WBC CPT-4: 70668 05/13/2016 A1C HPLC CPT-4: 22709 05/13/2016 FLU VACC PRSV FREE INC ANTIG 65 AND OLDER CPT-4: 35516 12/12/2015 ADMIN INFLUENZA VIRUS VAC CPT-4: G0008 12/12/2015 ROUTINE VENIPUNCTURE CPT-4: 95315 11/25/2015 ASSAY OF FREE THYROXINE CPT-4: 78328 11/25/2015 ASSAY THYROID STIM HORMONE CPT-4: 91627 11/25/2015 COMPREHEN METABOLIC PANEL CPT-4: 23054 11/25/2015 COMPLETE CBC W/AUTO DIFF WBC CPT-4: 89580 11/25/2015 LIPID PANEL CPT-4: 72569 11/25/2015 A1C HPLC CPT-4: 25363 11/25/2015 URINALYSIS NONAUTO W/O SCOPE CPT-4: 14785 05/21/2015 ROUTINE VENIPUNCTURE CPT-4: 24206 02/19/2015 METABOLIC PANEL TOTAL CA CPT-4: 19700 02/19/2015 PRESCRIP TRANSMIT VIA ERX SY CPT-4: G8553 02/19/2015 FLU VACC PRSV FREE INC ANTIG 65 AND OLDER CPT-4: 68237 12/20/2014 ADMIN INFLUENZA VIRUS VAC CPT-4: G0008 12/20/2014 URINALYSIS NONAUTO W/O SCOPE CPT-4: 28935 11/19/2014 URINE CULTURE/ COLONY COUNT CPT-4: 94244 11/19/2014 ROUTINE VENIPUNCTURE CPT-4: 81838 11/14/2014 ASSAY OF FREE THYROXINE CPT-4: 26663 11/14/2014 ASSAY THYROID STIM HORMONE CPT-4: 12279 11/14/2014 COMPREHEN METABOLIC PANEL CPT-4: 11297 11/14/2014 COMPLETE CBC W/AUTO DIFF WBC CPT-4: 32972 11/14/2014 LIPID PANEL CPT-4: 43268 11/14/2014 A1C HPLC CPT-4: 08957 11/14/2014 CERUM REMOVAL CPT-4: 09374 09/27/2014 PRESCRIP TRANSMIT VIA ERX SY CPT-4: G8553 07/11/2014 FLUZONE, 5ML (Medicare) CPT-4: Q2038 12/21/2013 ADMIN INFLUENZA VIRUS VAC CPT-4: G0008 12/21/2013 PRESCRIP TRANSMIT VIA ERX SY CPT-4: G8553 10/17/2013 PRESCRIP TRANSMIT VIA ERX SY CPT-4: G8553 09/24/2013 PRESCRIP TRANSMIT VIA ERX SY CPT-4: G8553 05/31/2013 ROUTINE VENIPUNCTURE CPT-4: 10717 03/28/2013 ASSAY OF FREE THYROXINE CPT-4: 62400 03/28/2013 ASSAY THYROID STIM HORMONE CPT-4: 90595 03/28/2013 COMPREHEN METABOLIC PANEL CPT-4: 22429 03/28/2013 COMPLETE CBC W/AUTO DIFF WBC CPT-4: 19285 03/28/2013 LIPID PANEL CPT-4: 46019 03/28/2013 A1C HPLC CPT-4: 68506 03/28/2013 VITAMIN B 12 FOLIC ACID CPT-4: 32858|17282 03/28/2013 PRESCRIP TRANSMIT VIA ERX SY CPT-4: G8553 03/26/2013 PRESCRIP TRANSMIT VIA ERX SY CPT-4: G8553 12/19/2012 FLUZONE, 5ML (Medicare) CPT-4: Q2038 11/27/2012 ADMIN INFLUENZA VIRUS VAC CPT-4: G0008 11/27/2012 PRESCRIP TRANSMIT VIA ERX SY CPT-4: G8553 10/04/2012 PRESCRIP TRANSMIT VIA ERX SY CPT-4: G8553 07/14/2012 ROUTINE VENIPUNCTURE CPT-4: 25720 02/23/2012 ASSAY OF FREE THYROXINE CPT-4: 22465 02/23/2012 ASSAY THYROID STIM HORMONE CPT-4: 55478 02/23/2012 COMPREHEN METABOLIC PANEL CPT-4: 02735 02/23/2012 COMPLETE CBC W/AUTO DIFF WBC CPT-4: 69998 02/23/2012 LIPID PANEL CPT-4: 21744 02/23/2012 A1C GLYCOSYLATED HEMOGLOBIN TEST CPT-4: 64679 012 CERUM REMOVAL CPT-4: 04124 02/22/2012 PRESCRIP TRANSMIT VIA ERX SY CPT-4: G8553 02/22/2012 PRESCRIP TRANSMIT VIA ERX SY CPT-4: G8553 12/15/2011 FLUZONE, 5ML (Medicare) CPT-4: Q2038 12/02/2011 ADMIN INFLUENZA VIRUS VAC CPT-4: G0008 12/02/2011 ASSAY, GLUCOSE, BLOOD QUANT CPT-4: 95212 09/21/2011 URINALYSIS NONAUTO W/O SCOPE CPT-4: 12126 09/16/2011 URINE CULTURE/ COLONY COUNT CPT-4: 39024 09/16/2011 ROUTINE VENIPUNCTURE CPT-4: 76588 09/15/2011 ASSAY OF FREE THYROXINE CPT-4: 22797 09/15/2011 ASSAY THYROID STIM HORMONE CPT-4: 16244 09/15/2011 COMPREHEN METABOLIC PANEL CPT-4: 21329 09/15/2011 COMPLETE CBC W/AUTO DIFF WBC CPT-4: 33043 09/15/2011 LIPID PANEL CPT-4: 16493 09/15/2011 ASSAY OF INSULIN CPT-4: 09257 09/15/2011 A1C GLYCOSYLATED HEMOGLOBIN TEST CPT-4: 83228 012 DRAIN/INJECT JOINT/BURSA CPT-4: 79033 08/16/2011 METHYLPREDNISOLONE 40 MG INJ CPT-4: J1030 08/16/2011 TRIAMCINOLONE ACET INJ NOS CPT-4: J3301 08/16/2011 PRESCRIP TRANSMIT VIA ERX SY CPT-4: G8553 08/03/2011 PRESCRIP TRANSMIT VIA ERX SY CPT-4: G8553 07/26/2011 METHYLPREDNISOLONE 40 MG INJ CPT-4: J1030 06/28/2011 DRAIN/INJECT JOINT/BURSA CPT-4: 32003 06/28/2011 TRIAMCINOLONE ACET INJ NOS CPT-4: J3301 06/28/2011 PRESCRIP TRANSMIT VIA ERX SY CPT-4: G8553 06/28/2011 ROUTINE VENIPUNCTURE CPT-4: 29966 04/01/2011 ASSAY OF FREE THYROXINE CPT-4: 48579 04/01/2011 ASSAY THYROID STIM HORMONE CPT-4: 49571 04/01/2011 COMPREHEN METABOLIC PANEL CPT-4: 00397 04/01/2011 COMPLETE CBC W/AUTO DIFF WBC CPT-4: 10435 04/01/2011 LIPID PANEL CPT-4: 48538 04/01/2011 PRESCRIP TRANSMIT VIA ERX SY CPT-4: G8553 03/31/2011 CERUM REMOVAL CPT-4: 35603 02/11/2011 PRESCRIP TRANSMIT VIA ERX SY CPT-4: G8553 02/11/2011 FLUZONE, 5ML (Medicare) CPT-4: Q2038 12/09/2010 ADMIN INFLUENZA VIRUS VAC CPT-4: G0008 12/09/2010 PRESCRIP TRANSMIT VIA ERX SY CPT-4: G8553 10/15/2010 URINALYSIS NONAUTO W/O SCOPE CPT-4: 47592 09/29/2010 URINE CULTURE/ COLONY COUNT CPT-4: 06346 09/29/2010 CUR TOBACCO NON-USER CPT-4: G8457 09/29/2010 ROUTINE VENIPUNCTURE CPT-4: 10133 07/06/2010 COMPLETE CBC W/AUTO DIFF WBC CPT-4: 63334 07/06/2010 COMPREHEN METABOLIC PANEL CPT-4: 46957 07/06/2010 LIPID PANEL CPT-4: 59528 07/06/2010 ASSAY THYROID STIM HORMONE CPT-4: 93519 07/06/2010 ASSAY OF FREE THYROXINE CPT-4: 18454 07/06/2010 PRESCRIP TRANSMIT VIA ERX SY CPT-4: G8553 07/02/2010 INJ TRIGGER POINT 1/2 MUSCL CPT-4: 80805 04/06/2010 TRIAMCINOLONE ACET INJ NOS CPT-4: J3301 04/06/2010 METHYLPREDNISOLONE 40 MG INJ CPT-4: J1030 04/06/2010 THER/PROPH/DIAG INJ SC/IM CPT-4: 14156 04/01/2010 KETOROLAC TROMETHAMINE INJ CPT-4: J1885 04/01/2010 PRESCRIP TRANSMIT VIA ERX SY CPT-4: G8553 01/22/2010 FLU VACCINE 3 YRS & > IM UP 64 CPT-4: 60388 0 ADMIN INFLUENZA VIRUS VAC CPT-4: G0008 12/10/2009 URINALYSIS NONAUTO W/O SCOPE CPT-4: 91127 12/02/2009 URINE CULTURE/ COLONY COUNT CPT-4: 17683 12/02/2009 PRESCRIP TRANSMIT VIA ERX SY CPT-4: G8553 12/02/2009 THER/PROPH/DIAG INJ SC/IM CPT-4: 86516 09/10/2009 VITAMIN B12 INJECTION CPT-4: J3420 09/10/2009 THER/PROPH/DIAG INJ SC/IM CPT-4: 77633 08/11/2009 VITAMIN B12 INJECTION CPT-4: J3420 08/11/2009 ROUTINE VENIPUNCTURE CPT-4: 27674 06/10/2009 Vital Signs Date Vital 03/13/2019 Blood Pressure 1: 144/82 Code: 8480-6 art Rate 1: 56 bpm 11/07/2018 Blood Pressure 1: 140/70 Code: 8480-6 [...] 1: 142/60 Code: 8480-6 BMI: 38.2 Code: 09119-7 Heart Rate 1: 48 bpm Height: 5'2" Respiratory Rate: 20 bpm SpO2: 98% Tempera ture: 36.7 (C) / 98.1 (F) Weight: 212 lbs 01/10/2018 Blood Pressure 1: 142/64 Code: 8480-6 BMI: 38.5 Code: 36981-0 Heart Rate 1: 52 bpm Height: 5'2" Respiratory Rate: 22 bpm SpO2: 96% Tempera ture: 36.1 (C) / 96.9 (F) Weight: 214 lbs 12/06/2017 Blood Pressure 1: 124/80 Code: 8480-6 BMI: 38.3 Code: 53821-0 Heart Rate 1: 68 bpm Height: 5'2" Respiratory Rate: 20 bpm Temperature: 36 .3 (C) / 97.4 (F) Weight: 213 lbs 11/22/2017 Blood Pressure 1: 132/78 Code: 8480-6 BMI: 37.6 Code: 13068-7 Heart Rate 1: 68 bpm Height: 5'2" Respiratory Rate: 20 bpm SpO2: 97% Tempera ture: 36.8 (C) / 98.2 (F) Weight: 209 lbs 10/20/2017 Blood Pressure 1: 150/76 Code: 8480-6 BMI: 38.5 Code: 81355-0 Heart Rate 1: 64 bpm Height: 5'2" Respiratory Rate: 20 bpm SpO2: 97% Tempera ture: 36.2 (C) / 97.2 (F) Weight: 214 lbs 09/27/2017 Blood Pressure 1: 122/74 Code: 8480-6 BMI: 38.2 Code: 69133-8 Heart Rate 1: 64 bpm Height: 5'2" Respiratory Rate: 18 bpm SpO2: 96% Tempera ture: 35.8 (C) / 96.4 (F) Weight: 212 lbs 08/16/2017 Blood Pressure 1: 124/78 Code: 8480-6 BMI: 37.8 Code: 72426-1 Heart Rate 1: 76 bpm Height: 5'2" Respiratory Rate: 20 bpm Temperature: 36 .8 (C) / 98.3 (F) Weight: 210 lbs 07/07/2017 Blood Pressure 1: 136/70 Code: 8480-6 BMI: 38.0 Code: 75388-5 Heart Rate 1: 68 bpm Height: 5'2" Respiratory Rate: 20 bpm SpO2: 97% Tempera ture: 36.8 (C) / 98.2 (F) Weight: 211 lbs 05/30/2017 Blood Pressure 1: 140/65 Code: 8480-6 Heart Rate 1: 75 bpm Respiratory Rate: 24 bpm SpO2: 95% Temperature: 37.0 (C) / 98.6 (F) We ight: 211 lbs 04/18/2017 Blood Pressure 1: 154/70 Code: 8480-6 BMI: 37.6 Code: 68963-1 Heart Rate 1: 76 bpm Height: 5'2" Respiratory Rate: 20 bpm SpO2: 98% Tempera ture: 36.9 (C) / 98.5 (F) Weight: 209 lbs 10/25/2016 Blood Pressure 1: 156/70 Code: 8480-6 BMI: 37.1 Code: 11367-8 Heart Rate 1: 72 bpm Height: 5'2" Respiratory Rate: 20 bpm SpO2: 97% Tempera ture: 37.0 (C) / 98.6 (F) Weight: 206 lbs 09/20/2016 Blood Pressure 1: 152/78 Code: 8480-6 BMI: 36.8 Code: 12653-2 Heart Rate 1: 78 bpm Height: 5'2" Respiratory Rate: 20 bpm SpO2: 98% Tempera ture: 36.1 (C) / 97.0 (F) Weight: 204 lbs 05/12/2016 Blood Pressure 1: 142/70 Code: 8480-6 BMI: 36.9 Code: 47350-7 Heart Rate 1: 64 bpm Height: 5'2" [...] 1: 122/64 Code: 8480-6 BMI: 39.1 Code: 88770-7 Heart Rate 1: 76 bpm Height: 5'2" Respiratory Rate: 20 bpm Temperature: 36 .8 (C) / 98.2 (F) Weight: 217 lbs 05/21/2015 Blood Pressure 1: 144/70 Code: 8480-6 BMI: 39.4 Code: 89004-9 Heart Rate 1: 76 bpm Height: 5'2" Respiratory Rate: 20 bpm Temperature: 36 .6 (C) / 97.9 (F) Weight: 219 lbs 02/19/2015 Blood Pressure 1: 152/60 Code: 8480-6 BMI: 39.6 Code: 33719-8 Heart Rate 1: 84 bpm Height: 5'2" Respiratory Rate: 20 bpm Temperature: 37 .0 (C) / 98.6 (F) Weight: 220 lbs 11/13/2014 Blood Pressure 1: 146/76 Code: 8480-6 BMI: 39.8 Code: 58033-2 Heart Rate 1: 88 bpm Height: 5'2" Respiratory Rate: 20 bpm Temperature: 37 .0 (C) / 98.6 (F) Weight: 221 lbs 09/27/2014 Blood Pressure 1: 132/70 Code: 8480-6 BMI: 39.1 Code: 39877-3 Heart Rate 1: 88 bpm Height: 5'2" Respiratory Rate: 20 bpm Temperature: 36 .4 (C) / 97.6 (F) Weight: 217 lbs 07/11/2014 Blood Pressure 1: 132/66 Code: 8480-6 BMI: 39.9 Code: 43123-2 Heart Rate 1: 72 bpm Height: 5'2" Respiratory Rate: 20 bpm Temperature: 36 .9 (C) / 98.4 (F) Weight: 218 lbs 05/23/2014 Blood Pressure 1: 136/80 Code: 8480-6 Heart Rate 1: 76 bpm Respiratory Rate: 20 bpm Temperature: 36.7 (C) / 98.0 (F) Weight: 224 lbs 03/20/2014 Blood Pressure 1: 134/78 Code: 8480-6 BMI: 39.7 Code: 12269-3 Heart Rate 1: 84 bpm Height: 5'2" Respiratory Rate: 20 bpm Temperature: 36 .7 (C) / 98.0 (F) Weight: 217 lbs 10/17/2013 Blood Pressure 1: 146/78 Code: 8480-6 BMI: 39.5 Code: 15847-5 Heart Rate 1: 82 bpm Height: 5'2" Respiratory Rate: 18 bpm Temperature: 35 .6 (C) / 96.1 (F) Weight: 216 lbs 09/24/2013 Blood Pressure 1: 134/70 Code: 8480-6 BMI: 37.9 Code: 41443-5 Heart Rate 1: 80 bpm Height: 5'3" Respiratory Rate: 20 bpm Temperature: 36 .8 (C) / 98.2 (F) Weight: 214 lbs 05/31/2013 Blood Pressure 1: 132/70 Code: 8480-6 BMI: 37.6 Code: 04618-9 Heart Rate 1: 80 bpm Height: 5'3" Respiratory Rate: 20 bpm Temperature: 36 .8 (C) / 98.3 (F) Weight: 212 lbs 03/26/2013 Blood Pressure 1: 116/74 Code: 8480-6 Heart Rate 1: 68 bpm Respiratory Rate: 20 bpm Temperature: 36.2 (C) / 97.1 (F) Weight: 212 lbs 12/19/2012 Blood Pressure 1: 132/82 Code: 8480-6 BMI: 37.4 Code: 02546-4 Heart Rate 1: 76 bpm Height: 5'3" Respiratory Rate: 20 bpm Temperature: 36 .7 (C) / 98.0 (F) Weight: 211 lbs 12/04/2012 Blood Pressure 1: 130/76 Code: 8480-6 He art Rate 1: 78 bpm 11/27/2012 Blood Pressure 1: 140/82 Code: 8480-6 BMI: 36.8 Code: 21032-7 Heart Rate 1: 66 bpm Height: 5'3" Respiratory Rate: 20 bpm Temperature: 36 .1 (C) / 96.9 (F) Weight: 208 lbs 10/04/2012 Blood Pressure 1: 138/80 Code: 8480-6 BMI: 36.4 Code: 46396-9 Heart Rate 1: 72 bpm Height: 5'4" Respiratory Rate: 20 bpm Temperature: 36 .7 (C) / 98.0 (F) Weight: 212 lbs 07/27/2012 Blood Pressure 1: 124/70 Code: 8480-6 BMI: 36.9 Code: 76091-0 Heart Rate 1: 60 bpm Height: 5'4" Temperature: 36.1 (C) / 97.0 (F) Weight: 215 lbs 07/14/2012 Blood Pressure 1: 132/86 Code: 8480-6 BMI: 36.9 Code: 10325-8 Heart Rate 1: 76 bpm Height: 5'4" Respiratory Rate: 20 bpm Temperature: 36 .8 (C) / 98.2 (F) Weight: 215 lbs 06/08/2012 Blood Pressure 1: 134/82 Code: 8480-6 BMI: 36.6 Code: 70044-0 Heart Rate 1: 72 bpm Height: 5'4" Respiratory Rate: 20 bpm Temperature: 36 .3 (C) / 97.4 (F) Weight: 213 lbs 02/22/2012 Blood Pressure 1: 142/80 Code: 8480-6 BMI: 37.1 Code: 90473-0 Heart Rate 1: 76 bpm Height: 5'4" Respiratory Rate: 20 bpm Temperature: 36 .8 (C) / 98.3 (F) Weight: 216 lbs 12/28/2011 Blood Pressure 1: 128/68 Code: 8480-6 BMI: 37.6 Code: 52446-6 Heart Rate 1: 72 bpm Height: 5'4" [...] 1: 128/78 Code: 8480-6 BMI: 38.1 Code: 34466-8 Heart Rate 1: 84 bpm Height: 5'4" Respiratory Rate: 20 bpm Temperature: 36 .9 (C) / 98.4 (F) Weight: 222 lbs 08/16/2011 Blood Pressure 1: 138/80 Code: 8480-6 BMI: 37.9 Code: 12889-2 Heart Rate 1: 74 bpm Height: 5'4" Temperature: 36.1 (C) / 97.0 (F) Weight: 221 lbs 08/03/2011 Blood Pressure 1: 126/78 Code: 8480-6 BMI: 38.4 Code: 71389-9 Heart Rate 1: 72 bpm Height: 5'4" Respiratory Rate: 20 bpm Temperature: 36 .7 (C) / 98.0 (F) Weight: 224 lbs 07/26/2011 Blood Pressure 1: 138/72 Code: 8480-6 BMI: 38.4 Code: 12630-7 Heart Rate 1: 72 bpm Height: 5'4" Respiratory Rate: 20 bpm Temperature: 36 .6 (C) / 97.9 (F) Weight: 224 lbs 06/28/2011 Blood Pressure 1: 122/78 Code: 8480-6 BMI: 38.8 Code: 11755-4 Heart Rate 1: 88 bpm Height: 5'4" Respiratory Rate: 20 bpm Temperature: 36 .6 (C) / 97.8 (F) Weight: 226 lbs 03/31/2011 Blood Pressure 1: 116/60 Code: 8480-6 BMI: 38.1 Code: 40330-0 Heart Rate 1: 92 bpm Height: 5'4" Respiratory Rate: 20 bpm Temperature: 36 .8 (C) / 98.2 (F) Weight: 222 lbs 02/11/2011 Blood Pressure 1: 118/62 Code: 8480-6 BMI: 37.9 Code: 66153-0 Heart Rate 1: 80 bpm Height: 5'4" Temperature: 36.5 (C) / 97.7 (F) Weight: 221 lbs 10/15/2010 Blood Pressure 1: 132/70 Code: 8480-6 Heart Rate 1: 84 bpm Respiratory Rate: 20 bpm Temperature: 36.7 (C) / 98.0 (F) Weight: 221 lbs 09/29/2010 Blood Pressure 1: 114/72 Code: 8480-6 BMI: 37.6 Code: 59165-0 Heart Rate 1: 76 bpm Height: 5'4" [...] 1: 120/70 Code: 8480-6 BMI: 38.3 Code: 11648-3 Heart Rate 1: 88 bpm Height: 5'5" Temperature: 36.4 (C) / 97.6 (F) Weight: 230 lbs Functional Status No Functional Status data Reason For Visit Reason For Visit Effective Dates Notes blood pressure check 03/13/2019 lab draw 01/23/2019 lab draw 12/15/2018 [...] PRN dizziness 09/27/2017 On Tuesday morning pa tient woke up and went to the bathroom and after lying down became very dizzy. Patient has hx of vertigo so didn't think anything of it. She usually just has them intermittently, but had more that day. While at [employer] began to feel very ill and became [...] 09/27/2014 pain, limb 07/11/2014 follow up 05/23/2014 [facility] fwup high blood pressure 03/20/2014 [...] Encounters Encounter Performer Location Codes Date () NURSE/OUTPATIENT VISIT EST Diagnosis: Mixed hyperlipidemia[ICD10: E78.2] Vikki CIDER DO [employer] CPT-4: 46901 01/23/2019 ([id number]) NURSE/OUTPATIENT VISIT EST Diagnosis: FLU VACCINE[ICD10: Z23] Vikki PIKE SSujata PECKND ER DO [employer] CPT-4: 11944 12/26/2018 ([id number]) NURSE/OUTPATIENT VISIT EST Diagnosis: Chronic kidney disease, stage 1[ICD10: N18.1] Vikki CIDER DO [employer] CPT-4: 76755 12/15/2018 ([id number]) OFFICE/OUTPATIENT VISIT EST Diagnosis: Acute serous otitis media, left ear[ICD10: H65.02] Jennifer GUAMAN [employer] [facility] CPT-4: 97259 11/07/2018 ([id number]) OFFICE/OUTPATIENT VISIT EST Diagnosis: Essential (primary) hypertension[ICD10: I10] Diagnosis: 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] Diagnosis: Hypoglycemia, unspecified[ICD10: E16.2] Diagnosis: Other fatigue[ICD10: R53.83] Diagnosis: Urinary tract infection, site not specified[ICD10: N39.0] Vikki GUAMAN [employer] [facility] CPT-4: 65205 08/14/2018 ([id number]) OFFICE/OUTPATIENT VISIT EST Diagnosis: Essential (primary) hypertension[ICD10: I10] Diagnosis: Gastro-esophageal reflux disease without esophagitis[ICD10: K21.9] Diagnosis: Urinary tract infection, site not specified[ICD10: N39.0] Vikki GUAMAN [employer] [facility] CPT-4: 04257 05/10/2018 ([id number]) OFFICE/OUTPATIENT VISIT EST Diagnosis: Gastro-esophageal reflux disease without esophagitis[ICD10: K21.9] Diagnosis: Epigastric pain[ICD10: R10.13] Vikki GUAMAN [employer] [facility] CPT-4: 59347 02/14/2018 ([id number]) OFFICE/OUTPATIENT VISIT EST Diagnosis: 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] Diagnosis: Essential (primary) hypertension[ICD10: I10] Diagnosis: Generalized anxiety disorder[ICD10: F41.1] Diagnosis: Gastro-esophageal reflux disease without esophagitis[ICD10: K21.9] Vikki GUAMAN [employer] [facility] CPT-4: 41652 01/10/2018 OFFICE/OUTPATIENT VISIT EST Diagnosis: Gastro-esophageal reflux disease without esophagitis[ICD10: K21.9] Diagnosis: Palpitations[ICD10: R00.2] Diagnosis: Urinary tract infection, site not specified[ICD10: N39.0] Diagnosis: Generalized anxiety disorder[ICD10: F41.1] Vikki GUAMAN [employer] [facility] CPT-4: 84115 12/06/2017 ([id number]) NURSE/OUTPATIENT VISIT EST Diagnosis: 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] Diagnosis: Hypoglycemia, unspecified[ICD10: E16.2] Diagnosis: Dizziness and giddiness[ICD10: R42] Diagnosis: Occlusion and stenosis of bilateral carotid arteries[ICD10: I65.23] Vikki GUAMAN [employer] [facility] CPT-4: 26093 11/30/2017 OFFICE/OUTPATIENT VISIT EST Diagnosis: Epigastric pain[ICD10: R10.13] Diagnosis: Generalized anxiety disorder[ICD10: F41.1] Diagnosis: FLU VACCINE[ICD10: Z23] Vikki BALL [employer] [facility] CPT-4: 18067 11/22/2017 ([id number]) OFFICE/OUTPATIENT VISIT EST Diagnosis: Essential (primary) hypertension[ICD10: I10] Diagnosis: Hypoglycemia, unspecified[ICD10: E16.2] Diagnosis: Gastro-esophageal reflux disease without esophagitis[ICD10: K21.9] Vikki GUAMAN [facility] CPT-4: 62419 10/20/2017 ([id number]) OFFICE/OUTPATIENT VISIT EST Diagnosis: Dizziness and giddiness[ICD10: R42] Jennifer GUAMAN [employer] [facility] CPT-4: 68332 09/27/2017 ([id number]) OFFICE/OUTPATIENT VISIT EST Diagnosis: Cervicalgia[ICD10: M54.2] Diagnosis: Other spondylosis with radiculopathy, cervical region[ICD10: M47.22] Vikki GUAMAN [employer] [facility] CPT-4: 54846 08/16/2017 ([id number]) OFFICE/OUTPATIENT VISIT EST Diagnosis: Hypoglycemia, unspecified[ICD10: E16.2] Diagnosis: Other spondylosis with radiculopathy, cervical region[ICD10: M47.22] Diagnosis: Vertigo of central origin, 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] Diagnosis: 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] Vikki KEARNEYAKUA RobertsSujata [facility] CPT-4: 85032 07/07/2017 ([id number]) OFFICE/OUTPATIENT VISIT EST Diagnosis: Benign paroxysmal vertigo, bilateral[ICD10: H81.13] Diagnosis: Otalgia, bilateral[ICD10: H92.03] Jennifer Rosario ROMMELJEANNA RobertsSujata [facility] CPT-4: 92763 05/30/2017 ([id number]) OFFICE/OUTPATIENT VISIT EST Diagnosis: Low back pain[ICD10: M54.5] Diagnosis: Radiculopathy, lumbosacral region[ICD10: M54.17] Diagnosis: Left lower quadrant pain[ICD10: R10.32] Vikki CRISOSTOMO AlejandraSujata [facility] CPT-4: 01974 04/18/2017 ([id number]) OFFICE/OUTPATIENT VISIT EST Diagnosis: FLU VACCINE[ICD10: Z23] Vikki PIKE AlejandraSujata [facility] CPT-4: 97309 12/10/2016 ([id number]) OFFICE/OUTPATIENT VISIT EST Diagnosis: Mixed hyperlipidemia[ICD10: E78.2] Diagnosis: Essential (primary) hypertension[ICD10: I10] Diagnosis: 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] Diagnosis: Impaired fasting glucose[ICD10: R73.01] Diagnosis: Other fatigue[ICD10: R53.83] Vikki PIKE AlejandraSujata [facility] CPT-4: 64397 11/01/2016 ([id number]) OFFICE/OUTPATIENT VISIT EST Diagnosis: Pain in thoracic spine[ICD10: M54.6] Diagnosis: Other intervertebral disc degeneration, 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] Vikki Shah [facility] CPT-4: 87440 10/25/2016 ([id number]) OFFICE/OUTPATIENT VISIT EST Diagnosis: Left lower quadrant pain[ICD10: R10.32] Diagnosis: Low back pain[ICD10: M54.5] Vikki RUBI [facility] CPT-4: 02198 09/20/2016 ([id number]) OFFICE/OUTPATIENT VISIT EST Diagnosis: Mixed hyperlipidemia[ICD10: E78.2] Diagnosis: Essential (primary) hypertension[ICD10: I10] Diagnosis: Hypoglycemia, unspecified[ICD10: E16.2] Vikki Deniz GUAMAN [facility] CPT-4: 47639 05/13/2016 ([id number]) OFFICE/OUTPATIENT VISIT EST Diagnosis: Impaired fasting glucose[ICD10: R73.01] Diagnosis: Mastodynia[ICD10: N64.4] Diagnosis: Mixed hyperlipidemia[ICD10: E78.2] Diagnosis: Essential (primary) hypertension[ICD10: I10] Diagnosis: Other fatigue[ICD10: R53.83] Vikkikranthi Guaman VIKKI AlejandraSujata [facility] CPT-4: 64228 05/12/2016 ([id number]) OFFICE/OUTPATIENT VISIT EST Diagnosis: Acute upper respiratory infection, unspecified[ICD10: J06.9] Yue KEARNEYQUELINE AlejandraSujata [facility] CPT-4: 13010 03/18/2016 ([id number]) OFFICE/OUTPATIENT VISIT EST Diagnosis: Acute mastoiditis without complications, right ear[ICD10: H70.001] Vikki Ciscofunmilayosakshi CORTEZVIKKI AlejandraSujata [facility] CPT-4: 84646 02/06/2016 ([id number]) OFFICE/OUTPATIENT VISIT EST Diagnosis: FLU VACCINE[ICD10: Z23] Vikki Ciscofunmilayosakshi CORTEZVIKKI Alyssa [facility] CPT-4: 83446 12/12/2015 ([id number]) OFFICE/OUTPATIENT VISIT EST Diagnosis: Mixed hyperlipidemia[ICD10: E78.2] Diagnosis: Essential (primary) hypertension[ICD10: I10] Diagnosis: 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] Diagnosis: Impaired fasting glucose[ICD10: R73.01] Vikki KEARNEY CHILANGOLUTHER AlejandraSujata [facility] CPT-4: 04301 11/25/2015 ([id number]) OFFICE/OUTPATIENT VISIT EST Diagnosis: Constipation, unspecified[ICD10: K59.00] Vikki PIKE AlejandraSujata [facility] CPT-4: 82022 08/26/2015 ([id number]) OFFICE/OUTPATIENT VISIT EST Diagnosis: Essential (primary) hypertension[ICD10: I10] Diagnosis: Mixed hyperlipidemia[ICD10: E78.2] Diagnosis: Chronic kidney disease, stage 1[ICD10: N18.1] Vikki GUAMAN [employer] [facility] CPT-4: 56305 05/21/2015 ([id number]) OFFICE/OUTPATIENT VISIT EST Diagnosis: Muscle weakness (generalized)[ICD10: M62.81] Diagnosis: Dizziness and giddiness[ICD10: R42] Diagnosis: Essential (primary) hypertension[ICD10: I10] Diagnosis: History of falling[ICD10: Z91.81] Vikki GUAMAN [employer] [facility] CPT-4: 85800 02/19/2015 ([id number]) OFFICE/OUTPATIENT VISIT EST Diagnosis: FLU VACCINE[ICD10: Z23] Vikki BALL [employer] [facility] CPT-4: 92968 12/20/2014 ([id number]) OFFICE/OUTPATIENT VISIT EST Diagnosis: Acute renal failure[ICD9: 584.9] Diagnosis: POLYURIA[ICD9: 788.42] Vikki Rees [employer] [facility] CPT-4: 87006 11/19/2014 ([id number]) OFFICE/OUTPATIENT VISIT EST Diagnosis: HYPERLIPIDEMIA NEC/NOS[ICD9: 272.4] Diagnosis: HYPERTENSION[ICD9: 401.9] Diagnosis: CAD[ICD9: 414.00] Diagnosis: Hyperglycemia[ICD9: 790.29] Diagnosis: MALAISE AND FATIGUE[ICD9: 780.79] Vikki GUAMAN [employer] [facility] CPT-4: 43098 11/14/2014 ([id number]) OFFICE/OUTPATIENT VISIT EST Diagnosis: MALAISE AND FATIGUE[ICD9: 780.79] Diagnosis: HYPOGLYCEMIA[ICD9: 251.2] Diagnosis: Grieving[ICD9: 309.0] Diagnosis: ABDOMINAL PAIN[ICD9: 789.00] Vikki GUAMAN [employer] [facility] CPT-4: 92042 11/13/2014 OFFICE/OUTPATIENT VISIT EST Diagnosis: CERUMEN IMPACTION[ICD9: 380.4] Diagnosis: EUSTACHIAN TUBE DYSFUNCTION[ICD9: 381.81] Jessenia GUAMAN [facility] CPT-4: 86624 09/27/2014 ([id number]) OFFICE/OUTPATIENT VISIT EST Diagnosis: Leg pain[ICD9: 729.5] Diagnosis: SUPERFIC PHLEBITIS-LEG[ICD9: 451.0] Vikki GUAMAN [facility] CPT-4: 95514 07/11/2014 ([id number]) OFFICE/OUTPATIENT VISIT EST Diagnosis: Thoracic back pain[ICD9: 724.1] Diagnosis: SPASM OF MUSCLE[ICD9: 728.85] Vikki GUAMAN [facility] CPT-4: 74055 05/23/2014 ([id number]) OFFICE/OUTPATIENT VISIT EST Diagnosis: DIZZINESS/VERTIGO[ICD9: 780.4] Diagnosis: Benign positional vertigo[ICD9: 386.11] Diagnosis: HYPERTENSION[ICD9: 401.9] Diagnosis: Suspicious nevus[ICD9: 238.2] Vikki GUAMAN [facility] CPT-4: 06673 03/20/2014 ([id number]) OFFICE/OUTPATIENT VISIT EST Diagnosis: FLU VACCINE[ICD10: Z23] Vikki [facility] CPT-4: 89414 12/21/2013 OFFICE/OUTPATIENT VISIT EST Diagnosis: SINUSITIS, ACUTE[ICD9: 461.9] Diagnosis: EUSTACHIAN TUBE DYSFUNCTION[ICD9: 381.81] Jessenia GUAMAN [facility] CPT-4: 04889 10/17/2013 ([id number]) OFFICE/OUTPATIENT VISIT EST Diagnosis: DIZZINESS/VERTIGO[ICD9: 780.4] Diagnosis: HYPERTENSION[ICD9: 401.9] Vikki MARTINEZ [facility] CPT-4: 40830 09/24/2013 ([id number]) OFFICE/OUTPATIENT VISIT EST Diagnosis: HYPERTENSION[ICD9: 401.9] Diagnosis: MALAISE AND FATIGUE[ICD9: 780.79] Diagnosis: SINUSITIS, ACUTE[ICD9: 461.9] Vikki GUAMAN [facility] CPT-4: 63643 05/31/2013 ([id number]) OFFICE/OUTPATIENT VISIT EST Diagnosis: HYPERLIPIDEMIA NEC/NOS[ICD9: 272.4] Diagnosis: HYPERTENSION[ICD9: 401.9] Diagnosis: B12 DEFIC ANEMIA NEC[ICD9: 281.1] Diagnosis: HYPOGLYCEMIA[ICD9: 251.2] Vikki Deniz MARTINEZ [facility] CPT-4: 90947 03/28/2013 OFFICE/OUTPATIENT VISIT EST Diagnosis: COUGH[ICD9: 786.2] Jessenia GUAMAN [facility] CPT-4: 05997 03/26/2013 OFFICE/OUTPATIENT VISIT EST Diagnosis: COUGH[ICD9: 786.2] Diagnosis: URI, ACUTE[ICD9: 465.9] Jessenia BALL [facility] CPT-4: 09558 12/19/2012 ([id number]) OFFICE/OUTPATIENT VISIT EST Diagnosis: HYPERTENSION[ICD9: 401.9] Diagnosis: CEPHALGIA[ICD9: 784.0] Diagnosis: ANXIETY STATE NOS[ICD9: 300.00] Diagnosis: FLU VACCINE[ICD9: V04.81] [facility]: 95066 11/27/2012 ([id number]) OFFICE/OUTPATIENT VISIT EST Diagnosis: DIZZINESS/VERTIGO[ICD9: 780.4] Diagnosis: SINUSITIS, ACUTE[ICD9: 461.9] Diagnosis: Benign positional vertigo[ICD9: 386.11] Vikkiluther Guaman CAIO KEELUTHER Alyssa GUAMAN [facility] CPT-4: 53881 10/04/2012 OFFICE/OUTPATIENT VISIT EST Diagnosis: OTITIS MEDIA NOS[ICD9: 382.9] Vikki Ciscofunmilayosakshi GUAMAN [facility] CPT-4: 82722 07/27/2012 OFFICE/OUTPATIENT VISIT EST Diagnosis: Perforation of ear drum[ICD9: 384.20] Diagnosis: SINUSITIS, ACUTE[ICD9: 461.9] Vikki Guaman VIKKI Alyssa [facility] CPT-4: 93964 07/14/2012 ([id number]) OFFICE/OUTPATIENT VISIT EST Diagnosis: Mastalgia[ICD9: 611.71] Vikki BALL [facility] CPT-4: 46132 06/08/2012 ([id number]) OFFICE/OUTPATIENT VISIT EST Diagnosis: HYPERLIPIDEMIA NEC/NOS[ICD9: 272.4] Diagnosis: HYPERTENSION[ICD9: 401.9] Diagnosis: DIZZINESS/VERTIGO[ICD9: 780.4] Diagnosis: Hyperglycemia[ICD9: 790.29] Diagnosis: MALAISE AND FATIGUE[ICD9: 780.79] Vikki Peckbhavya ROMMEL E SSujata DENIZ [facility] CPT-4: 12264 02/23/2012 ([id number]) OFFICE/OUTPATIENT VISIT EST Diagnosis: EUSTACHIAN TUBE DYSFUNCTION[ICD9: 381.81] Diagnosis: DIZZINESS/VERTIGO[ICD9: 780.4] Diagnosis: ABDOMINAL PAIN[ICD9: 789.00] Diagnosis: GERD[ICD9: 530.81] Diagnosis: CERUMEN IMPACTION[ICD9: 380.4] Vikki Peckfunmilayosakshi CORTEZVIKKI Alejandra Sujata DENIZ [facility] CPT-4: 83471 02/22/2012 OFFICE/OUTPATIENT VISIT EST Diagnosis: ABDOMINAL PAIN[ICD9: 789.00] Diagnosis: DYSPEPSIA[ICD9: 536.8] Vikki CORTEZLINE AlejandraSujata MATY Negrita [facility] CPT-4: 30291 12/28/2011 ([id number]) OFFICE/OUTPATIENT VISIT EST Diagnosis: ABDOMINAL PAIN[ICD9: 789.00] Diagnosis: DYSPEPSIA[ICD9: 536.8] Diagnosis: IBS[ICD9: 564.1] Vikki Deniz KEARNEYQUELINE AlejandraSujata DENIZ [facility] CPT - 4: 96818 12/15/2011 OFFICE/OUTPATIENT VISIT EST Diagnosis: DIZZINESS/VERTIGO[ICD9: 780.4] Diagnosis: HYPOGLYCEMIA[ICD9: 251.2] Vikki Ciscobhavya PIKE AlejandraSujata CISCO MARTINEZ [facility] CPT-4: 73287 09/21/2011 ([id number]) OFFICE/OUTPATIENT VISIT EST Diagnosis: URINARY TRACT INFECTION[ICD9: 599.0] Vikki BRAVO AlejandraSujata DENIZ [facility] CPT-4: 35934 09/16/2011 ([id number]) OFFICE/OUTPATIENT VISIT EST Diagnosis: HYPERLIPIDEMIA NEC/NOS[ICD9: 272.4] Diagnosis: HYPERTENSION[ICD9: 401.9] Diagnosis: MALAISE AND FATIGUE[ICD9: 780.79] Diagnosis: DIZZINESS/VERTIGO[ICD9: 780.4] Vikki GUAMAN [employer] [facility] CPT-4: 76254 09/15/2011 ([id number]) OFFICE/OUTPATIENT VISIT EST Diagnosis: DIZZINESS/VERTIGO[ICD9: 780.4] Diagnosis: MALAISE AND FATIGUE[ICD9: 780.79] Diagnosis: HYPERTENSION[ICD9: 401.9] Vikki MARTINEZ [employer] [facility] CPT-4: 43070 09/13/2011 OFFICE/OUTPATIENT VISIT EST Diagnosis: LUMB/LUMBOSAC DISC DEGEN[ICD9: 722.52] Diagnosis: Radiculopathy of leg[ICD9: 724.4] Diagnosis: 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] Diagnosis: SPINAL ENTHESOPATHY[ICD9: 720.1] Vikki GUAMAN [employer] [facility] CPT-4: 61791 08/16/2011 ([id number]) OFFICE/OUTPATIENT VISIT EST Diagnosis: PAIN, LOWER BACK[ICD9: 724.2] Diagnosis: SPASM OF MUSCLE[ICD9: 728.85] Diagnosis: SCIATICA[ICD9: 724.3] Diagnosis: Lumbar degenerative disc disease[ICD9: 722.52] Vikki GUAMAN [employer] [facility] CPT-4: 10821 08/03/2011 ([id number]) OFFICE/OUTPATIENT VISIT EST Diagnosis: PAIN IN THORACIC SPINE[ICD9: 724.1] Diagnosis: SPASM OF MUSCLE[ICD9: 728.85] Vikki GUAMAN [employer] [facility] CPT-4: 04809 07/26/2011 ([id number]) OFFICE/OUTPATIENT VISIT EST Diagnosis: PAIN, LOWER BACK[ICD9: 724.2] Diagnosis: SPASM OF MUSCLE[ICD9: 728.85] Diagnosis: Sacroiliac dysfunction[ICD9: 739.4] Diagnosis: Lumbar degenerative disc disease[ICD9: 722.52] Vikki PECKNDER [facility] CPT-4: 79421 06/28/2011 OFFICE/OUTPATIENT VISIT EST Diagnosis: MALAISE AND FATIGUE[ICD9: 780.79] Diagnosis: HYPOTENSION[ICD9: 458.9] Diagnosis: CAD[ICD9: 414.00] Vikki CIDER [facility] CPT-4: 77582 03/31/2011 OFFICE/OUTPATIENT VISIT EST Diagnosis: SINUSITIS, ACUTE[ICD9: 461.9] Diagnosis: PHARYNGITIS, ACUTE[ICD9: 462] Diagnosis: CERUMEN IMPACTION[ICD9: 380.4] Vikki GUAMAN DO [facility] CPT-4: 17441 02/11/2011 OFFICE/OUTPATIENT VISIT EST Diagnosis: PAIN IN THORACIC SPINE[ICD9: 724.1] Diagnosis: GERD[ICD9: 530.81] Diagnosis: DIZZINESS/VERTIGO[ICD9: 780.4] Vikki PECKNDER [facility] CPT-4: 27515 10/15/2010 OFFICE/OUTPATIENT VISIT EST Vikki PECK NDER DO [facility] CPT- 4: 00534 09/29/2010 ([id number]) OFFICE/OUTPATIENT VISIT EST Vikki PATHAK SSujata ORENDER DO [facility] CPT-4: 89613 07/02/2010 ([id number]) OFFICE/OUTPATIENT VISIT, EST Diagnosis: PAIN, LOWER BACK[ICD9: 724.2] Vikki Deniz PIKE SSujata [facility] CPT-4: 65171 04/06/2010 ([id number]) OFFICE/OUTPATIENT VISIT, EST Vikki KEELUTHER SSujata [facility] CPT-4: 72558 04/01/2010 ([id number]) OFFICE/OUTPATIENT VISIT, EST Vikki Guaman CAIO KRANTHI SSujata [facility] CPT-4: 45569 01/22/2010 ([id number]) OFFICE/OUTPATIENT VISIT, EST Vikkikranthi Peckfunmilayosakshi CAIO CHILANGOLUTHER Alyssa [facility] CPT-4: 78515 12/02/2009 ([id number]) OFFICE/OUTPATIENT VISIT, BRYAN Shah [facility] CPT-4: 15341 10/21/2009 ([id number]) OFFICE/OUTPATIENT VISIT, EST Vikki CRISOSTOMO SSujata [facility] CPT-4: 32773 09/10/2009 ([id number]) OFFICE/OUTPATIENT VISIT, BRYAN CRISOSTOMO SSujata [facility] CPT-4: 60964 08/11/2009 ([id number]) OFFICE/OUTPATIENT VISIT, BRYAN Shah [facility] CPT-4: 40591 06/09/2009 Plan of Care Planned Activity Notes Codes Status Date Appointment: Vikki Guaman WPtel: [address] [place] [address] LAB 01/23/2019 Appointment: Vikki Guaman WPtel: [address] [place] [address] US INJECTION 12/26/2018 Patient Education: INFLUENZA VACCINE CDC Completed 12/26/2018 Appointment: Vikki Guaman WPtel: [address] [place] [address] LAB 12/15/2018 Visit Diagnosis Plan: Acute serous [...] ICD-10 : H65.02 11/07/2018 Appointment: Jennifer Rosario [address] [place] [address] ACUTE ILLNESS 11/07/2018 Visit Diagnosis Plan: Urinary [...] 780.79 ICD-10 : R53.83 08/14/2018 Appointment: Vikki Guamantel: [address] [place], [place] [id number] US FOLLOW UP 08/14/2018 Visit Diagnosis Plan: [...] : K21.9 05/10/2018 Appointment: Vikki Guaman WPtel: [address] [place], [place] [phone] [place] FOLLOW UP 05/10/2018 Patient Education: metoprolol tartrate- [employer] [facility] [id number] [email or web address] Completed 05/10/2018 Appointment: Vikki Guaman WPtel: [address] [place], [place] [address] [place] CANCELED 04/21/2018 Visit Diagnosis Plan: Gastro-esophageal reflux disease without esophagitis Discussion: Continue protonix and carafate Proceed with updated EGD ICD-9 : 530.81 ICD-10 : K21.9 02/14/2018 Visit Diagnosis Plan: Epigastric pain Discussion: Counts include [facility] beds at [facility] CT abdomen/pelvis due to ongoing abdominal pain ICD-9 : 789.06 ICD-10 : R10.13 02/14/2018 Appointment: Vikki [facility] [address] [facility] [facility] 02/14/2018 Care Plan: CT PELVIS W/O DYE LOINC : 361 08-9 Pending 02/14/2018 Care Plan: CT ABDOMEN W/O DYE LOINC : 36 103-0 Pending 02/14/2018 Care Plan: Referral Order SNOMED-CT : 30 [id number] Pending 02/14/2018 Visit Diagnosis Plan: 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 Discussion: S/P [...] : I10 01/10/2018 Appointment: Vikki Guaman WPtel: [facility] [place] [facility] 01/10/2018 Visit Diagnosis [...] Palpitations Discussion: Poncho taveras going to schedule Lexiscan ICD-9 : 785.1 ICD-10 : R00.2 12/06/2017 Appointment: Vikki Guaman WPtel: [address] [place] [address] FOLLOW UP 12/06/2017 Patient Education: Patient Medication Summary Completed 12/06/2017 Appointment: Vikki Guaman WPtel: [address] [place] [address] LAB 11/30/2017 Patient Education: Patient Medication Summary [...] : F41.1 11/22/2017 Appointment: Vikki Guaman WPtel: [address] [place] [address] FOLLOW UP 11/22/2017 Patient Education: Patient Medication [...] : K21.9 10/20/2017 Appointment: Vikki Guaman WPtel: [address] [place] [address] ACUTE ILLNESS 10/20/2017 Patient Education: Patient Medication Summary Completed 10/20/2017 Visit Diagnosis Plan: Dizziness and giddiness Discussi on: blood work to be completed in office including cmp, cbc, troponin to rule out glucose intolerance, infection, dehydration. instructed patient that she needs to see her muck hauler sooner than oct and patient requested we contact dr. brown's office. will have front office make appt. patient has carotid doppler annually. ICD-9 : 780.4 ICD-10 : R42 09/27/2017 Appointment: Jennifer Rosario [address] [place] [address] ACUTE ILLNESS 09/27/2017 Patient Education: Patient Medication Summary Completed 09/27/2017 Visit Diagnosis Plan: Cervicalgia Discussion: Complete course of PT since symptoms improved Continue stretching exercises Notify if symptoms return or worsen ICD-9 : 723.1 ICD-10 : M54.2 08/16/2017 Appointment: Vikki Guaman WPtel: [address] [place], [place] [phone] FOLLOW UP 08/16/2017 Patient Education: Patient [...] : H81.43 07/07/2017 Appointment: Vikki Guaman WPtel: [facility] 07/07/2017 Patient Education: Patient Medication Summary Completed 07/07/2017 Care Plan: MRI NECK SPINE W/O DYE LOINC : 03660-3 Pending 07/07/2017 Visit Diagnosis Plan: Otalgia, bilateral [...] ICD-10 : H81.13 05/30/2017 Appointment: Jennifer Rosario [address] [place] [address] ACUTE ILLNESS 05/30/2017 Patient Education: Patient Medication [...] : M54.17 04/18/2017 Appointment: Vikki Guaman WPtel: [address] [place] [address] ACUTE ILLNESS 04/18/2017 Patient Education: Patient Medication Summary Completed 04/18/2017 Appointment: Vikki Guaman WPtel: [address] [place] [address] US INJECTION 12/10/2016 Patient Education: Patient Medication Summary Completed 12/10/2016 Appointment: Vikki Guaman WPtel: [address] [place] [address] US LAB 11/01/2016 Patient Education: Patient Medication [...] : M51.36 10/25/2016 Appointment: Vikki Guaman WPtel: [address] [place], [place] [phone] [place] FOLLOW UP 10/25/2016 Patient Education: Patient [...] R10.32 09/20/2016 Appointment: Vikki Guaman WPtel: [address] [place], [place] [phone] ACUTE ILLNESS 09/20/2016 Patient Education: Patient Medication Summary Completed 09/20/2016 Appointment: Vikki Guaman WPtel: [address] [place] [address] US LAB 05/13/2016 Patient Education: Patient Medication [...] N64.4 05/12/2016 Appointment: Vikki Guaman WPtel: [address] [place], [place] [phone] 05/11 confirmed `sl ACUTE ILLNESS 05/12/2016 Patient Education: Patient Medication Summary Completed 05/12/2016 Care Plan: MAMMOGRAM SCREENING LOINC : 2 6347-5 Pending 05/12/2016 Visit Diagnosis Plan: Acute upper respiratory infectio n, unspecified Discussion: Exam is reassuring Likely viral illness Supportive care reviewed and encouraged Follow up PRN ICD-9 : 465.9 ICD-10 : J06.9 03/18/2016 Appointment: Yue Moya [address] [place] [address] ACUTE ILLNESS 03/18/2016 Patient Education: Patient Medication Summary Completed 03/18/2016 Visit Plan: Supportive care. Rest, Fluid s, Tylenol/Motrin prn fever or bodyaches. Notify if worsening symptoms. 02/06/2016 Appointment: Vikki Guaman WPtel: [address] [place] [address] ACUTE ILLNESS 02/06/2016 Patient Education: Patient Medication Summary Completed 02/06/2016 Appointment: Vikki Guaman WPtel: [address] [place], [place] [phone] US INJECTION 12/12/2015 Patient Education: Patient Medication Summary Completed 12/12/2015 Appointment: Vikki Guamantel: [address] [place], [place] [phone] [place] LAB 11/25/2015 Patient Education: Patient Medication Summary Completed 11/25/2015 Visit Plan: Add miralax daily Use daily probiotic and metamucil and push fluids Notify if worsens/persists 08/26/2015 Appointment: Vikki Guaman WPtel: [address] [place], [place] [phone] 08/25/15 confirmed ~sl ACUTE ILLNESS 08/26/2015 Patient Education: Patient Medication Summary Completed 08/26/2015 Visit Plan: No NSAIDs Kidney function di scussed Discussed hydration Monitor lab every 4months so will check CMP, HbA1C next month 05/21/2015 Appointment: Vikki Guaman WPtel: [address] [place], [place] [address] 05/19 confirmed ~sl ACUTE ILLNESS 05/21/2015 Patient Education: Patient Medication Summary Completed 05/21/2015 Visit Plan: Vestibular exercises Refill flonase Strict low Na diet--discussed that needs to read labels Rx for walker with chair given due to muscle weakness/unsteadiness Has carotids and abdominal aorta and legs checked in March Check Chem 7 02/19/2015 Appointment: Vikki Guaman WPtel: [address] [place], [place] [phone] 02/18/15 appt confirmed cn FOLLOW UP 02/19 Patient Education: Patient Medication Summary Completed 02/19/2015 Patient Education: Vertigo Completed 1 04/22/2014 Appointment: Vikki Guaman WPtel: [address] [place], [place] [phone] [place] INJECTION 12/20/2014 Patient Education: Patient Medication Summary Completed 12/20/2014 Appointment: Vikki Guaman WPtel: [address] [place], [place] [phone] 11/19/2014 Patient Education: Patient Medication Summary Completed 11/19/2014 Referral: Edy Cheek WPtel: #1 [facility] Katerina [address] Referral Completed 11/18/2014 Appointment: Vikki Guaman WPtel: [address] [place] [address] LAB 11/14/2014 Patient Education: Patient Medication Summary Completed 11/14/2014 Visit Plan: Check CMP, CBC, TSH, Free T4 , B12, Lipids, HbA1C Discussed 6 small meals a day each with protein Would likely benefit from antidepressant Update colonoscopy 11/13/2014 Appointment: Vikki Guaman WPtel: [address] [place], [place] [phone] 11/12/14 confirmed ACUTE ILLNESS 11/13/2014 Patient Education: Patient Medication Summary Completed 11/13/2014 Visit Plan: Cerumen flush with warm wate r and peroxide - good results Resume Nasonex nasal spray daily Recommended Debrox earwax removal drops 09/27/2014 Appointment: Jessenia Francis WPtel: [address] [place] [address] ACUTE ILLNESS 09/27/2014 Patient Education: Patient Medication Summary Completed 09/27/2014 Visit Plan: Continue aspirin daily Add m eloxicam for 1week Elevate and Ice Call on Tuesday07/11/2014 Appointment: Vikki Guaman WPtel: [address] [place] [address] ACUTE ILLNESS 07/11/2014 Patient Education: Patient Medication Summary Completed 07/11/2014 Visit Plan: Been using baclofen at [facility] and has helped some PT for next 2-4weeks 05/23/2014 Appointment: Vikki Guaman WPtel: [address] [place] [address] Hospital Follow Up 05/23/2014 Patient Education: Patient Medication Summary Completed 05/23/2014 Appointment: Vikki Guaman WPtel: [address] [place] [address] LAB 05/10/2014 Appointment: Vikki Guaman WPtel: [address] [place] [address] feeling better, weather - FOLLOW UP 04/07 Referral: Edy Cheek WPtel: [facility] Referral Appointment Requested 04/03/2014 Visit Plan: Continue exercise and curren t meds See surgery for removal of right arm lesion 03/20/2014 Appointment: Vikki Guaman WPtel: [address] [place] [address] FOLLOW UP 03/20/2014 Patient Education: Patient Medication Summary Completed 03/20/2014 Appointment: Vikki Guaman WPtel: [address] [place] [address] INJECTION 12/21/2013 Patient Education: Patient Medication Summary Completed 12/21/2013 Appointment: Jessenia Francis WPtel: [address] [place] [address] ACUTE ILLNESS 10/17/2013 Patient Education: Patient Medication Summary Completed 10/17/2013 Visit Plan: Discussed that likely lumbar etiology for leg weakness Will change amlodopine to low dose dyazide and see if helps legs and inner ear 09/24/2013 Appointment: Vikki Guaman WPtel: [address] [place] [address] FOLLOW UP 09/24/2013 Patient Education: Patient Medication Summary Completed 09/24/2013 Visit Plan: Ceftin and continue claritin /flonase Decrease amlodopine to 2.5mg q HS until fwup with Card due to weakness 05/31/2013 Appointment: Vikki Guaman WPtel: [address] [place] [address] ACUTE ILLNESS 05/31/2013 Patient Education: Patient Medication Summary Completed 05/31/2013 Appointment: Vikki Guaman WPtel: [address] [place] [address] LAB 03/28/2013 Patient Education: Patient Medication Summary Completed 03/28/2013 Appointment: Jessenia Francis WPtel: [address] [place] [address] ACUTE ILLNESS 03/26/2013 Patient Education: Patient Medication Summary Completed 03/26/2013 Visit Plan: Supportive care. Rest, Fluid s, Tylenol prn fever or bodyaches. Notify if worsening symptoms. Ceftin 12/19/2012 Appointment: Jessenia Francis WPtel: [address] [place] [address] ACUTE ILLNESS 12/19/2012 Patient Education: Patient Medication Summary Completed 12/19/2012 Appointment: Vikki Guaman WPtel: [address] [place] [address] CHECK 12/04/2012 Patient Education: Patient Medication Summary Completed 12/04/2012 Appointment: Vikki Guaman WPtel: [address] [place], [place] [phone] ER Follow UP 11/27/2012 Patient Education: Patient Medication Summary Completed 11/27/2012 Visit Plan: Restart flonase BID Use mecl izine 25mg q HS Vestibular exercises Claritin 10mg q AM See ENT if doesn't resolve 10/04/2012 Appointment: Vikki Guaman WPtel: [address] [place], [place] [phone] ACUTE ILLNESS 10/04/2012 Patient Education: Patient Medication Summary Completed 10/04/2012 Visit Plan: Will continue to observe 07/27/2012 Appointment: Vikki Guaman WPtel: [address] [place], [place] [phone] FOLLOW UP 07/27/2012 Patient Education: Patient Medication [...] ear recheck. 07/14/2012 Appointment: Evelyn Santos WPtel: [address] [place], [place] [phone] ACUTE ILLNESS 07/14/2012 Patient Education: Patient Medication Summary Completed 07/14/2012 Visit Plan: Decrease caffeine intake Kristin ck Bilateral Mammogram with US of left breast 06/08/2012 Appointment: Vikki Guaman WPtel: [address] [place], [place] [phone] ACUTE ILLNESS 06/08/2012 Patient Education: Patient Medication Summary Completed 06/08/2012 Appointment: Alisia Campbell WPtel: [address] [place], [place] [phone] appt scheduled 04/06 ACUTE ILLNESS 04/10/2012 Appointment: Vikki Guaman WPtel: [address] [place], [place] [phone] LAB 02/23/2012 Patient Education: Patient Medication Summary Completed 02/23/2012 Visit Plan: Continue off carafate and se e how does Continue probiotic Add Vestibular exercises and use meclizine prn Continue Nasonex Check fasting lab including CMP, Lipids, CBC, TSH, Free T4, HbA1C 02/22/2012 Appointment: Vikki Guaman WPtel: [address] [place], [place] [phone] FOLLOW UP 02/22/2012 Patient Education: Patient Medication Summary Completed 02/22/2012 Visit Plan: Continue carafate for 4more weeks at current dose then decrease to BID for 2wks then q HS 12/28/2011 Appointment: Vikki Guaman WPtel: [address] [place], [place] [phone] FOLLOW UP 12/28/2011 Patient Education: Patient Medication Summary Completed 12/28/2011 Visit Plan: Continue omeprazole Add Judi fate 1gm po q AC Add daily probiotic 12/15/2011 Appointment: Vikki Guaman WPtel: [address] [place], [place] [phone] ACUTE ILLNESS 12/15/2011 Patient Education: Patient Medication Summary Completed 12/15/2011 Appointment: Vikki Guaman WPtel: [address] [place], [place] [phone] [place] INJECTION 12/02/2011 Patient Education: Patient Medication Summary Completed 12/02/2011 Visit Plan: Diabetic Diet Accuchecks BID alternating times Hold onglyza and Januvia for now and continue diet and exercise and weight loss and lana BAPTISTE Discussed hypoglycemia and snack of peanut butter and crackers with juice or milk 09/21/2011 Appointment: Vikki Guaman WPtel: [address] [place], [place] [phone] WORK IN 09/21/2011 Patient Education: Patient Medication Summary Completed 09/21/2011 Appointment: Vikki Guaman WPtel: [address] [place] [address] 09/16/2011 Patient Education: Patient Medication Summary Completed 09/16/2011 Appointment: Vikki Guaman WPtel: [address] [place] [address] 09/15/2011 Patient Education: Patient Medication Summary Completed 09/15/2011 Appointment: Vikki Guaman WPtel: [address] [place] [address] ACUTE ILLNESS 09/13/2011 Patient Education: Patient Medication Summary Completed 09/13/2011 Visit Plan: Injection to Right SI joint as above Pt will call in 3 days on pain Has PT starting in 2wks. 08/16/2011 Appointment: Vikki Guaman WPtel: [address] [place] [address] ACUTE ILLNESS 08/16/2011 Patient Education: Patient Medication Summary Completed 08/16/2011 Visit Plan: OMT done Start PT May need u pdated MRI if need to consider epidural Prednisone 08/03/2011 Appointment: Vikki Guaman WPtel: [address] [place] [address] OMT 08/03/2011 Patient Education: Patient Medication Summary Completed 08/03/2011 Visit Plan: Flexeril and Vimovo OMT done Daily stretches 07/26/2011 Appointment: Vikki Guaman WPtel: [address] [place] [address] ACUTE ILLNESS 07/26/2011 Patient Education: Patient Medication Summary Completed 07/26/2011 Visit Plan: OMT done Daily stretches Roque st heat or biofreeze Right SI joint injection Call in 1week Vimovo BID 06/28/2011 Appointment: Vikki Guaman WPtel: [address] [place] [address] ACUTE ILLNESS 06/28/2011 Patient Education: Patient Medication Summary Completed 06/28/2011 Appointment: Vikki Guamantel: [address] [place], [place] [phone] LAB 04/01/2011 Patient Education: Patient Medication Summary Completed 04/01/2011 Visit Plan: Decrease amlodopine to 1.25m g daily Schedule with Cardiology Fasting lab in AM 03/31/2011 Appointment: Vikki Guaman WPtel: [address] [place], [place] [id number] ACUTE ILLNESS 03/31/2011 Patient Education: Patient Medication Summary Completed 03/31/2011 Visit Plan: Saline nasal flushes prn. Ty lenol/Motrin prn headache. Notify if persists/symptoms worsening. Cerumen removal from ears as above 02/11/2011 Appointment: Vikki Guaman WPtel: [address] [place] [address] ACUTE ILLNESS 02/11/2011 Patient Education: Patient Medication Summary Completed 02/11/2011 Appointment: Vikki Guaman WPtel: [address] [place] [address] US INJECTION 12/09/2010 Patient Education: Patient Medication Summary Completed 12/09/2010 Visit Plan: Continue vimovo for 1more we ek Increase Omeprazole to BID for 1mo then resume QD if stomach improved Vestibular exercises with meclizine q HS for next week 10/15/2010 Appointment: Vikki Guaman WPtel: [address] [place], [place] [phone] FOLLOW UP 10/15/2010 Patient Education: Patient Medication Summary Completed 10/15/2010 Appointment: Vikki Guaman WPtel: [address] [place] [address] ACUTE ILLNESS 09/29/2010 Patient Education: Patient Medication Summary Completed 09/29/2010 Appointment: Vikki Guaman WPtel: [address] LAB 07/06/2010 Patient Education: Patient Medication Summary Completed 07/06/2010 Visit Plan: Saline nasal flushes prn. Ty lenol/Motrin prn headache. Notify if persists/symptoms worsening. Add Veramyst Increase Omeprazole to 20mg po BID 07/02/2010 Appointment: Vikki Guaman WPtel: [address] [place] [address] ACUTE ILLNESS 07/02/2010 Patient Education: Patient Medication Summary Completed 07/02/2010 Appointment: Vikki Guaman WPtel: [address] [place] [address] FOLLOW UP 04/06/2010 Patient Education: Patient Medication Summary Completed 04/06/2010 Appointment: Vikki Guaman WPtel: [address] [place] [address] ACUTE ILLNESS 04/01/2010 Patient Education: Patient Medication Summary Completed 04/01/2010 Visit Plan: Nasocourt sample given. Pt. will notify if symptoms are worse on Tuesday. 01/22/2010 Appointment: Alisia Campbell WPtel: [address] [place] [address] ACUTE ILLNESS 01/22/2010 Patient Education: Patient Medication Summary Completed 01/22/2010 Appointment: Vikki Guaman WPtel: [address] [place], [place] [phone] [place] INJECTION 12/10/2009 Patient Education: Patient Medication Summary Completed 12/10/2009 Appointment: Vikki Guaman WPtel: [address] [place] [address] FOLLOW UP 12/02/2009 Patient Education: Patient Medication Summary Completed 12/02/2009 Patient Education: Lexapro Completed 0 12/02/2009 Visit Plan: May proceed with hiatal ryan ia repair per Card. so will contact Dr. Mariscal's office to proceed with surgery Trial of Lexapro 5mg QD plus use xanax prn 10/21/2009 Appointment: Vikki Guaman WPtel: [address] [place] [address] FOLLOW UP 10/21/2009 Patient Education: Patient Medication Summary Completed 10/21/2009 Visit Plan: B12 given Cont oral B12 and iron Fwup 1mo for B12 Proceed with hiatal hernia repair once card clearance 09/10/2009 Appointment: Vikki Guaman WPtel: [address] [place] [address] FOLLOW UP 09/10/2009 Patient Education: Patient Medication Summary Completed 09/10/2009 Appointment: Vikki Guaman WPtel: [address] [place] [address] FOLLOW UP 08/11/2009 Patient Education: Patient Medication Summary Completed 08/11/2009 Appointment: Vikki Guaman WPtel: [address] [place] [address] [place] LAB 06/10/2009 Patient Education: Patient Medication Summary Completed 06/10/2009 Visit Plan: Check fasting lab in AM--CMP ,Lipids, CBC, Vit D, TSH,FreeT4, B12 06/09/2009 Appointment: Vikki Guaman WPtel: [address] [place] [address] FOLLOW UP 06/09/2009 Patient Education: Patient Medication Summary Completed 06/09/2009 Referral: Edy Cheek WPtel: [address] [place] [phone] [place] Referral Appointment Requested Referral: Edy Cheek WPtel: [address] Referral Initiated Instructions Comment . Supportive [...]
--- OUTSIDE RECORDS SUMMARY | 2019-04-25 20:40 | XMS REPORT | CCD ---
Author Author Evelyne Guaman D.O. Organization [facility] Address [address] [place] [address] Phone Care Team Providers Care Last Sawyer Name Role Phone Vikki Guaman D.O. PP Unavailable CCM Unavailable Summary Purpose Interface Exchange Insurance Providers Payer name Policy type / Coverage type Covered green party ID Effective Begin Date Effective End Date WPS MEDICARE PART B [place] Medicare Part B [id number] 2017 Unknown Aetna [facility] Medicare Part B [id number] Unknown Family history Father Diagnosis Age At Onset Heart disease Unknown Mother Diagnosis Age At Onset Heart disease Unknown Cancer Unknown Social History Social History Element Codes Description Effective Dates Tobacco history SNOMED CT: 663183159 Never smoker 09/29/2010 Marital status Unknown Single [...] R10.13 11/22/2017 Active 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: [...] Fill Instructions simvastatin 40 mg tablet RxNorm: 554162 1 Tablet(s) PO QD 01/22/2019 04/21/2019 Active omeprazole 40 mg capsule,delayed release RxNorm: 20020415 Capsu le(s) Oral QD 01/10/2019 07/08/2019 Active Xanax 0.25 mg tablet RxNorm: 853614 TAKE 1 TABLET BY MOUTH TWIC E DAILY 01/02/2019 No Stop Date Active omeprazole 40 mg capsule,delayed release RxNorm: 20020415 Capsu le(s) PO QD 12/11/2018 01/09/2019 Inactive metoprolol tartrate 25 mg tablet RxNorm: 493195 1 Tablet(s) PO BID 11/20/2018 05/18/2019 Active omeprazole 40 mg capsule,delayed release RxNorm: 063345 Capsu le(s) PO QD 11/13/2018 12/10/2018 Inactive Flonase Allergy Relief 50 mcg/actuation nasal spray,suspensi on RxNorm: 7726053 2 [place] NASAL QHS 11/07/2018 No Stop Date Active simvastatin 40 mg tablet RxNorm: 164035 1 Tablet(s) PO QD 10/23/2018 01/20/2019 Inactive simvastatin 40 mg tablet RxNorm: 627348 1 Tablet(s) PO QD 07/24/2018 10/21/2018 Inactive omeprazole 40 mg capsule,delayed release RxNorm: 434441 Capsu le(s) PO QD 07/13/2018 11/09/2018 Inactive simvastatin 40 mg tablet RxNorm: 965690 1 Tablet(s) PO QD 06/13/2018 07/12/2018 Inactive omeprazole 40 mg capsule,delayed release RxNorm: 278940 1 Capsu le(s) PO QD 06/13/2018 07/12/2018 Inactive Bactrim DS 800 mg-160 mg tablet RxNorm: 148149 1 Tablet(s) PO BID 0 05/12/2018 05/18/2018 Inactive Bactrim DS 800 mg-160 mg tablet RxNorm: 181300 1 Tablet(s) PO BID 0 05/12/2018 05/11/2018 Inactive Macrobid 100 mg capsule RxNorm: 195531 1 Capsule(s) PO BID 05/11/1905/16/2018 Inactive metoprolol tartrate 25 mg tablet RxNorm: 583897 1 Tablet(s) PO BID 05/10/2018 11/05/2018 Inactive Xanax 0.25 mg tablet RxNorm: 128196 TAKE 1 TABLET BY MOUTH TWIC E DAILY 02/16/2018 01/01/2019 Inactive Xanax 0.25 mg tablet RxNorm: 089346 1 Tablet(s) PO BID 02/14/2018 Inactive Protonix 40 mg tablet,delayed release RxNorm: 635796 1 Tablet(s) PO BID for stomach--replaces omeprazole 01/10/2018 05/09/2018 Inactive Carafate 1 gram tablet RxNorm: 508743 1 Tablet(s) PO AC & HS 201705/09/2018 Inactive Xanax 0.25 mg tablet RxNorm: 206884 1 Tablet(s) PO BID 01/03/201812/2017 Inactive Bactrim DS 800 mg-160 mg tablet RxNorm: 212981 1 Tablet(s) PO BID 1 12/12/2017 Inactive Bactrim DS 800 mg-160 mg tablet RxNorm: 105908 1 Tablet(s) PO BID 1 12/07/2017 Inactive Carafate 1 gram tablet RxNorm: 636354 1 Tablet(s) PO AC & HS 201712/21/2017 Inactive Protonix 40 mg tablet,delayed release RxNorm: 916650 1 Tablet(s) PO BID for stomach--replaces omeprazole 11/22/2017 01/09/2018 Inactive Protonix 40 mg tablet,delayed release RxNorm: 080172 1 Tablet(s) PO BID for stomach--replaces omeprazole 10/20/2017 11/21/2017 Inactive fluticasone 50 mcg/actuation nasal spray,suspension RxNorm: 8195887 2 [place] NASAL QD to each nostril 07/07/2017 08/13/2018 Inactive Nasonex 50 mcg/actuation [place] RxNorm: 2761694 2 [place] NASAL 201707/07/2017 Inactive omeprazole 40 mg capsule,delayed release RxNorm: 450046 1 Capsu le(s) PO QD 04/18/2017 10/19/2017 Inactive simvastatin 40 mg tablet RxNorm: 061658 1 Tablet(s) PO QD TAKE 1 TABLET EVERY DAY 04/18/2017 04/12/2018 Inactive metoprolol tartrate 25 mg tablet RxNorm: 103421 1/2 Tablet(s) PO QD 04/18/2017 01/09/2018 Inactive simvastatin 40 mg tablet RxNorm: 433193 Tablet(s) TAKE 1 TABLET EVERY DAY 10/27/2016 04/17/2017 Inactive metoprolol tartrate 25 mg tablet RxNorm: 142359 1/2 Tablet(s) PO QD 09/20/2016 03/18/2017 Inactive Flonase 50 mcg/actuation nasal spray,suspension RxNorm: 1797 933 2 [place] NASAL BID 09/20/2016 04/17/2017 Inactive omeprazole 40 mg capsule,delayed release RxNorm: 070958 1 Capsu le(s) PO QD 09/08/2016 04/17/2017 Inactive metoprolol tartrate 25 mg tablet RxNorm: 528825 1/2 Tablet(s) PO QD 06/14/2016 09/19/2016 Inactive ciprofloxacin 0.2 % ear drops in a dropperette RxNorm: 04968 6 4 Drop(s) OTIC TID for 1 week 02/06/2016 05/11/2016 Inactive cefdinir 300 mg capsule RxNorm: 546908 2 Capsule(s) PO QD 02/06/2016 02/15/2016 Inactive omeprazole 40 mg capsule,delayed release RxNorm: 108158 TAKE 1 CAPSULE EVERY DAY 11/06/2015 09/08/2016 Inactive simvastatin 40 mg tablet RxNorm: 714496 TAKE 1 TABLET EVERY DAY 05/201510/27/2016 Inactive Flonase 50 mcg/actuation nasal spray,suspension RxNorm: 1797 933 2 [place] NASAL BID 02/19/2015 09/19/2016 Inactive cefuroxime axetil 250 mg tablet RxNorm: 983442 1 Tablet(s) PO BID 0 11/21/2014 11/20/2014 Inactive cefuroxime axetil 250 mg tablet RxNorm: 851659 1 Tablet(s) PO BID 0 11/21/2014 11/27/2014 Inactive omeprazole 40 mg capsule,delayed release RxNorm: 747881 1 Capsu le(s) PO QD 10/09/2014 01/05/2015 Inactive meloxicam 7.5 mg tablet RxNorm: 999390 1 Tablet(s) PO QD 07/11/2014 0 08/09/2014 Inactive loratadine 10 mg tablet RxNorm: 000990 1 Tablet(s) PO QAM for a llergies 10/17/2013 08/13/2018 Inactive Flonase 50 mcg/actuation nasal spray,suspension RxNorm: 8963 23 2 [place] NASAL BID 10/17/2013 02/18/2015 Inactive prednisone 20 mg tablet RxNorm: 839736 2 Tablet(s) PO BID 10/17/2013 10/21/2013 Inactive Dyazide 37.5 mg-25 mg capsule RxNorm: 691036 1 Capsule(s) PO QAM 10/16/2013 Inactive Ceftin 500 mg tablet RxNorm: 611469 1 Tablet(s) PO BID 05/31/201307/2013 Inactive Ceftin 500 mg tablet RxNorm: 053793 1 Tablet(s) PO BID 03/26/2013 Inactive simvastatin 40 mg tablet RxNorm: 908016 Tablet(s) PO TA KE ONE TABLET BY MOUTH EVERY DAY 03/26/2013 10/07/2015 Inactive metoprolol tartrate 25 mg tablet RxNorm: 452639 Tablet( s) PO TAKE ONE-HALF TABLET BY MOUTH EVERY DAY 03/26/2013 11/12/2014 Inactive Ceftin 500 mg tablet RxNorm: 774026 1 Tablet(s) PO BID 12/19/2012 Inactive loratadine 10 mg tablet RxNorm: 647083 1 Tablet(s) PO QAM for a llergies 10/04/2012 12/02/2012 Inactive omeprazole 20 mg capsule,delayed release RxNorm: 082950 Capsule(s) PO TAKE ONE CAPSULE BY MOUTH TWICE DAILY 08/09/2012 10/08/2014 Inactive omeprazole 20 mg capsule,delayed release RxNorm: 081932 1 Capsu le(s) PO BID 08/09/2012 05/09/2018 Inactive Augmentin 875 mg-125 mg tablet RxNorm: 556019 1 Tablet(s) PO Q12H 0 07/14/2012 07/23/2012 Inactive Floxin Otic Drops 1 bottle Drops RxNorm: 5 Drop(s) OTIC BID 07/20/2012 Inactive metoprolol tartrate 25 mg tablet RxNorm: 449503 Tablet( s) PO TAKE ONE-HALF TABLET BY MOUTH EVERY DAY 04/11/2012 03/25/2013 Inactive simvastatin 40 mg tablet RxNorm: 745237 Tablet(s) PO TA KE ONE TABLET BY MOUTH EVERY DAY 04/11/2012 03/25/2013 Inactive lancets RxNorm: Misc Miscellaneous USE ONE TO CH JEFFERY GLUCOSE EVERY DAY 04/04/2012 05/09/2018 Inactive Carafate 1 gram tablet RxNorm: 029975 1 Tablet(s) PO AC & HS 201111/12/2014 Inactive Flagyl 500 mg tablet RxNorm: 459126 1 Tablet(s) PO TID 12/15/2011 Inactive Carafate 1 gram tablet RxNorm: 603119 1 Tablet(s) PO AC & HS 201102/12/2012 Inactive One Touch Test strips RxNorm: Miscellaneous QD 09/21/2011 05/09/2018 Inactive one touch ultra mini test strips Protonix 40 mg Tab RxNorm: 486647 1 Tablet(s) PO QD 09/13/20112011 Inactive Protonix 40 mg Tab RxNorm: 653217 1 Tablet(s) PO QD 09/13/20112011 Inactive prednisone 20 mg Tab RxNorm: 456328 1 Tablet(s) PO BID 08/03/201106/2011 Inactive Flexeril 5 mg Tab RxNorm: 175568 1 Tablet(s) PO QHS for spasm 07/2508/24/2011 Inactive Flexeril 5 mg Tab RxNorm: 422608 1 Tablet(s) PO QHS for spasm 06/2707/25/2011 Inactive amlodipine 2.5 mg Tab RxNorm: 416374 1/2 Tablet(s) PO QD replac es 5mg dose 03/31/2011 06/27/2011 Inactive simvastatin 40 mg tablet RxNorm: 342871 1 Tablet(s) PO QD 03/31/2011 03/24/2012 Inactive metoprolol tartrate 25 mg tablet RxNorm: 148171 1/2 Tablet(s) PO QD 03/31/2011 03/24/2012 Inactive omeprazole 20 mg capsule,delayed release RxNorm: 426724 1 Capsu le(s) PO BID 03/31/2011 09/12/2011 Inactive cefdinir 300 mg Cap RxNorm: 799880 2 Capsule(s) PO QD 02/11/201102/04 Inactive simvastatin 40 mg Tab RxNorm: 354028 1 Tablet(s) PO QD 02/01/2011 Inactive metoprolol tartrate 25 mg Tab RxNorm: 220966 1/2 Tablet(s) PO QD 03/30/2011 Inactive metoprolol tartrate 25 mg Tab RxNorm: 553334 1/2 Tablet(s) PO QD 12/28/2010 Inactive meclizine 25 mg Tab RxNorm: 1094876 1 Tablet(s) PO QHS 10/15/201011/2010 Inactive for dizziness Ceftin 500 mg Tab RxNorm: 103105 1 Tablet(s) PO BID 07/02/20102010 Inactive omeprazole 20 mg Cap, Delayed Release RxNorm: 235483 1 Capsule( s) PO BID 07/02/2010 12/28/2010 Inactive simvastatin 40 mg Tab RxNorm: 649057 1 Tablet(s) PO QD 06/30/201007/2018 Inactive simvastatin 40 mg Tab RxNorm: 071644 1 Tablet(s) PO QD 06/30/2010 Inactive simvastatin 40 mg Tab RxNorm: 643075 1 Tablet(s) PO QD 02/25/2010 Inactive Tessalon Perles 100 mg Cap RxNorm: 423696 1 Capsule(s) PO Q6-8H 01/28/2010 Inactive cefdinir 300 mg Cap RxNorm: 463206 1 Capsule(s) PO BID 01/22/2010 Inactive Lexapro 10 mg Tab RxNorm: 867712 1 Tablet(s) PO QD 12/02/2009 010 Inactive Cipro 250 mg Tab RxNorm: 661691 1 Tablet(s) PO BID 12/02/2009 010 Inactive Wellbutrin XL 150 mg 24 hr Tab RxNorm: 300807 1 Tablet(s) PO QAM 08/07/2009 Inactive Fish Oil 1,000 mg Cap RxNorm: 1 Capsule(s) PO QD No Start Date Active Tylenol Extra Strength 500 mg tablet RxNorm: 793883 1/2 Tablet( s) PO as needed No Start Date Active nitroglycerin 0.4 mg sublingual tablet RxNorm: 230742 Tablet(s) SL as needed No Start Date Active Calcium with Vitamin D 600 mg (1,500 mg)-400 unit tablet RxN orm: 363202 1 Tablet(s) PO QD No Start Date Active Multivitamin & Mineral Formula Tab RxNorm: 1 Tablet(s) PO QD No St art Date Active vitamin B complex capsule RxNorm: 1 Capsule(s) PO QD No Start Date Active Aspirin 81 mg Tab RxNorm: 849985 1 Tablet(s) PO QD No Start Date Active isosorbide mononitrate ER 30 mg tablet,extended release 24 h r RxNorm: 477382 1 Tablet(s) PO QHS No Start Date Active Vitamin D 1,000 unit Cap RxNorm: 246870 1 Capsule(s) PO QD No Start D ate Active Co Q-10 oral RxNorm: 00343 oral No Start Date Active metoprolol tartrate 25 mg Tab RxNorm: 202804 1/2 Tablet(s) PO QD No Start Date 12/27/2010 Inactive Nasonex 50 mcg/actuation [place] RxNorm: 4867866 2 [place] NASAL No Sta rt Date 07/06/2017 Inactive Vitamin B12 1000mcg Tablet RxNorm: 1 Tablet(s) PO QD No Start Date 11/12/2014 Inactive amlodipine 5 mg Tab RxNorm: 468479 1 Tablet(s) PO QD No Start Date Inactive simvastatin 40 mg tablet RxNorm: 229812 1 Tablet(s) PO QD No Start Date 06/12/2018 Inactive omeprazole 20 mg capsule,delayed release RxNorm: 581624 1 Capsu le(s) PO BID No Start Date 08/08/2012 Inactive omeprazole 40 mg capsule,delayed release RxNorm: 344729 1 Capsu le(s) PO QD No Start Date 06/12/2018 Inactive Nexium 40 mg Cap RxNorm: 008108 1 Capsule(s) PO QD No Start Date 01/05 Inactive Stool Softener 100 mg Tab RxNorm: 1491514 2 Tablet(s) PO BID No Sta rt Date 03/30/2011 Inactive Calcium with Vitamin D 600 mg (1,500 mg)-400 unit Tab RxNorm : 296591 1 Tablet(s) PO QD No Start Date 11/12/2014 Inactive iron 325 mg (65 mg iron) Tab RxNorm: 858652 1 Tablet(s) PO QD No St art Date 11/12/2014 Inactive Flonase 50 mcg/actuation Nasal [place] RxNorm: 063410 2 [place] DEMOND AL BID No Start Date 10/16/2013 Inactive fluticasone 50 mcg/actuation nasal spray,suspension RxNorm: 2253999 2 [place] NASAL QD to each nostril No Start Date 07/06/2017 Inactive Nasonex 50 mcg/actuation [place] RxNorm: 3691848 2 [place] NASAL QD No Start Date 07/06/2017 Inactive hydralazine 50 mg tablet RxNorm: 333656 1 Tablet(s) PO as needed for BP over 160/90 No Start Date 11/21/2017 Inactive Vimovo 500 mg-20 mg 12 hr Tab RxNorm: 774430 1 Tablet(s) PO BID No Start Date 02/10/2011 Inactive Tylenol PM 25 mg-500 mg/15 mL Oral Soln RxNorm: 2929910 1 PO QPM No Start Date 11/12/2014 Inactive Iron (Ferrous Sulfate) Oral RxNorm: Oral No Start Date 03/30/19 12 Inactive Reglan 10 mg Tab RxNorm: 624727 1 Tablet(s) PO TID before meals No Start Date 02/10/2011 Inactive Xanax 1 mg Tab RxNorm: 827083 1/2 Tablet(s) PO QD No Start Date 11/21 Inactive amlodipine 10 mg tablet RxNorm: 235685 1 Tablet(s) PO QD No Start D ate 09/23/2013 Inactive Iron (dried) Oral RxNorm: Oral No Start Date 03/30/2011 Inactiv e metoprolol tartrate 50 mg tablet RxNorm: 734647 1 Tablet(s) PO BID No Start Date 02/13/2018 Inactive Xanax 0.25 mg tablet RxNorm: 495902 1 Tablet(s) PO BID No Start Date 01/02/2018 Inactive lancets RxNorm: Miscellaneous check blood sugar at least once daily No Start Date 04/03/2012 Inactive simvastatin 40 mg Tab RxNorm: 097976 1 Tablet(s) PO QD No Start Date 02/24/2010 Inactive isosorbide mononitrate ER 30 mg tablet,extended release 24 h r RxNorm: 269937 1 Tablet(s) PO QHS No Start Date 08/13/2018 Inactive amlodipine 2.5 mg tablet RxNorm: 167133 1 Tablet(s) PO QD No Start Date 09/23/2013 Inactive sucralfate 1 gram tablet RxNorm: 740513 1 Tablet(s) PO QID No Start Date 05/09/2018 Inactive Fish Oil Oral RxNorm: Oral No Start Date 03/31/2011 Inactive Multiple Vitamin Oral RxNorm: Oral No Start Date 03/31/[address] [place] [facility] metoprolol tartrate 25 mg tablet RxNorm: 835945 1/2 Tablet(s) P O QD No Start Date 06/13/2016 Inactive metoprolol tartrate 50 mg tablet RxNorm: 935317 1/2 Tablet(s) P O BID No Start Date 05/09/2018 Inactive Flonase Allergy Relief 50 mcg/actuation nasal spray,suspensi on RxNorm: 9441549 2 [place] NASAL QHS No Start Date 11/06/2018 Inactive [...] Result Date S ervice Location GFR CALC [id number] GFR Non Afr Amr 52 mL/min 12/15/2018 Unk nown GFR CALC [id number] GFR Afr Amr >60 mL/min 12/15/2018 Unknow n COMPREHENSIVE METABOLIC 32923 AST 17 U/L 2018 Unknown COMPREHENSIVE METABOLIC 96129 ALT 11 U/L 2018 Unknown COMPREHENSIVE METABOLIC 68642 BUN 17 mg/dL 2018 Unknown COMPREHENSIVE METABOLIC 39760 ALBUMIN 3.9 g/dL 2018 Unknown COMPREHENSIVE METABOLIC 56072 CHLORIDE 108 mmol/L 12/15 Unknown COMPREHENSIVE METABOLIC 31369 Bili Total 0.5 mg/dL 12/15 Unknown COMPREHENSIVE METABOLIC 42485 ALK PHOS 72 U/L 2018 Unknown COMPREHENSIVE METABOLIC 11495 SODIUM 142 mmol/L 12/15 Unknown COMPREHENSIVE METABOLIC 06735 CREATININE 1.02 mg/dL 12/05 Unknown COMPREHENSIVE METABOLIC 64635 CALCIUM 9.3 mg/dL 2018 Unknown COMPREHENSIVE METABOLIC 16042 POTASSIUM 4.0 mmol/L 12/15 Unknown COMPREHENSIVE METABOLIC 56070 Total Protein 6.2 g/dL Unknown COMPREHENSIVE METABOLIC 84399 Glucose 93 mg/dL 2018 Unknown COMPREHENSIVE METABOLIC 18455 Bicarbonate 27 mmol/L 12/05 Unknown COMPREHENSIVE METABOLIC 54006 AGAP 7 mmol/L 2018 Unknown GFR CALC [id number] GFR Non Afr Amr 48 mL/min 08/14/2018 Unk nown GFR CALC 7345572 GFR Afr Amr 59 mL/min 08/14/2018 Unknown THYROID STIMULATING HORMONE 17277 TSH 1.936 uIU/mL 08/14/2018 Unknown COMPREHENSIVE METABOLIC 43127 AST 18 U/L 2018 Unknown COMPREHENSIVE METABOLIC 26445 ALT 11 U/L 2018 Unknown COMPREHENSIVE METABOLIC 86971 BUN 18 mg/dL 2018 Unknown COMPREHENSIVE METABOLIC 84314 ALBUMIN 4.2 g/dL 2018 Unknown COMPREHENSIVE METABOLIC 37465 CHLORIDE 109 mmol/L 08/14 Unknown COMPREHENSIVE METABOLIC 35982 Bili Total 0.4 mg/dL 08/14 Unknown COMPREHENSIVE METABOLIC 08636 ALK PHOS 64 U/L 2018 Unknown COMPREHENSIVE METABOLIC 10247 SODIUM 142 mmol/L 08/14 Unknown COMPREHENSIVE METABOLIC 68374 CREATININE 1.09 mg/dL 08/05 Unknown COMPREHENSIVE METABOLIC 46979 CALCIUM 9.3 mg/dL 2018 Unknown COMPREHENSIVE METABOLIC 87743 POTASSIUM 4.7 mmol/L 08/14 Unknown COMPREHENSIVE METABOLIC 82034 Total Protein 6.3 g/dL Unknown COMPREHENSIVE METABOLIC 22355 Glucose 84 mg/dL 2018 Unknown COMPREHENSIVE METABOLIC 89207 Bicarbonate 25 mmol/L 08/05 Unknown COMPREHENSIVE METABOLIC 76770 AGAP 8 mmol/L 2018 Unknown COMPLETE BLOOD COUNT [id number] WBC 7.8 10e9/L 08/15/19 19 Unknown COMPLETE BLOOD COUNT [id number] RBC 4.04 10e12/L 2018 Unknown COMPLETE BLOOD COUNT [id number] HEMOGLOBIN 12.2 g/dL 08/15/19 19 Unknown COMPLETE BLOOD COUNT [id number] HEMATOCRIT 38.6 % 08/15/19 19 Unknown COMPLETE BLOOD COUNT [id number] MCV 95.5 fL 9 Unknown COMPLETE BLOOD COUNT [id number] MCH 30.2 pg 9 Unknown COMPLETE BLOOD COUNT 1641042 MCHC 31.6 g/dL 9 Unknown COMPLETE BLOOD COUNT [id number] PLATELET COUNT 215 10e9/L 12/2018 Unknown COMPLETE BLOOD COUNT [id number] Mean Plt Volume 11.2 fL 12/2018 Unknown COMPLETE BLOOD COUNT [id number] Neut Auto 45.7 % 9 Unknown COMPLETE BLOOD COUNT [id number] Lymph Auto 42.1 % 08/15/19 19 Unknown COMPLETE BLOOD COUNT [id number] [place] Auto 9.2 % 9 Unknown COMPLETE BLOOD COUNT [id number] RDW 13.4 % 9 Unknown COMPLETE BLOOD COUNT [id number] Eos Auto 2.7 % 9 Unknown COMPLETE BLOOD COUNT 1200961 Baso Auto 0.3 % 9 Unknown COMPLETE BLOOD COUNT [id number] Neutrophil Abs 3.56 10e9/L Unknown COMPLETE BLOOD COUNT [id number] Lymphocyte Abs 3.28 10e9/L Unknown COMPLETE BLOOD COUNT [id number] Monocyte Abs 0.72 10e9/L 08/05 Unknown COMPLETE BLOOD COUNT [id number] Eosinophil Abs 0.21 10e9/L Unknown COMPLETE BLOOD COUNT [id number] RDW-SD 44.9 fL 9 Unknown COMPLETE BLOOD COUNT [id number] Basophil Abs 0.02 10e9/L 08/05 Unknown COMPLETE BLOOD COUNT [id number] WBC 5.2 10e9/L 12/01/19 18 Unknown COMPLETE BLOOD COUNT [id number] RBC 4.21 10e12/L 2017 Unknown COMPLETE BLOOD COUNT [id number] HEMOGLOBIN 12.8 g/dL 12/01/19 18 Unknown COMPLETE BLOOD COUNT [id number] HEMATOCRIT 39.0 % 12/01/19 18 Unknown COMPLETE BLOOD COUNT [id number] MCV 92.6 fL 8 Unknown COMPLETE BLOOD COUNT [id number] MCH 30.4 pg 8 Unknown COMPLETE BLOOD COUNT [id number] MCHC 32.8 g/dL 8 Unknown COMPLETE BLOOD COUNT [id number] PLATELET COUNT 202 10e9/L Unknown COMPLETE BLOOD COUNT [id number] Mean Plt Volume 10.7 fL Unknown COMPLETE BLOOD COUNT [id number] Neut Auto 40.9 % 8 Unknown COMPLETE BLOOD COUNT [id number] Lymph Auto 46.3 % 12/01/19 18 Unknown COMPLETE BLOOD COUNT [id number] [place] Auto 9.3 % 8 Unknown COMPLETE BLOOD COUNT 2863413 RDW 13.7 % 8 Unknown COMPLETE BLOOD COUNT 5999148 Eos Auto 2.9 % 8 Unknown COMPLETE BLOOD COUNT [id number] Baso Auto 0.6 % 8 Unknown COMPLETE BLOOD COUNT [id number] Neutrophil Abs 2.13 10e9/L Unknown COMPLETE BLOOD COUNT [id number] Lymphocyte Abs 2.41 10e9/L Unknown COMPLETE BLOOD COUNT [id number] Monocyte Abs 0.48 10e9/L 11/06 Unknown COMPLETE BLOOD COUNT [id number] Eosinophil Abs 0.15 10e9/L Unknown COMPLETE BLOOD COUNT [id number] RDW-SD 45.2 fL 8 Unknown COMPLETE BLOOD COUNT [id number] Basophil Abs 0.03 10e9/L 11/06 [place] [address] Glucose 118 mg/dL 11/30 [place] [address] CREATININE 1.01 mg/dL [place] [address] BUN 14 mg/dL 11/30 [place] [address] SODIUM 141 mmol/L 11/06 [place] [address] POTASSIUM 4.0 mmol/L 11/06 [place] [address] CHLORIDE 108 mmol/L 11/06 [place] [address] Bicarbonate 25 mmol/L [place] [address] AGAP 8 mmol/L 11/30 [place] [address] CALCIUM 9.6 mg/dL 11/30 Unknown FREE T4 20768 T4 Free 1.23 ng/dL 11/30/2017 Unknown GFR CALC [id number] GFR Non Afr Amr 53 mL/min 11/30/2017 Unk nown GFR CALC 9063097 GFR Afr Amr >60 mL/min 11/30/2017 Unknow n THYROID STIMULATING HORMONE 07401 TSH 2.124 uIU/mL 11/30/2017 Unknown LIPID GROUP 96638 Cholesterol 152 mg/dL 09/28/2017 Unkno wn LIPID GROUP 00770 Triglyceride 151 mg/dL 09/28/2017 Unkn own LIPID GROUP 70730 HDL CHOLESTEROL 47 mg/dL 09/28/2017 U nknown LIPID GROUP 35804 Chol/HDL Ratio 3.23 ratio 09/28/2017 U nknown LIPID GROUP 72986 NON-HDL Chol 105 mg/dL 09/28/2017 Unkn own LIPID GROUP 98588 LDL Cholesterol 75 mg/dL 09/28/2017 U nknown ASSAY OF TROPONIN QUANT 44649 Troponin-I <0.30 ng/mL Unknown COMPREHENSIVE METABOLIC 09813 AST 20 U/L 2017 Unknown COMPREHENSIVE METABOLIC 51467 ALT 14 U/L 2017 Unknown COMPREHENSIVE METABOLIC 18410 BUN 19 mg/dL 2017 Unknown COMPREHENSIVE METABOLIC 71513 ALBUMIN 4.2 g/dL 2017 Unknown COMPREHENSIVE METABOLIC 87607 CHLORIDE 102 mmol/L 09/27 Unknown COMPREHENSIVE METABOLIC 77623 Bili Total 0.4 mg/dL 09/27 Unknown COMPREHENSIVE METABOLIC 60440 ALK PHOS 66 U/L 2017 Unknown COMPREHENSIVE METABOLIC 86191 SODIUM 135 mmol/L 09/27 Unknown COMPREHENSIVE METABOLIC 22459 CREATININE 1.01 mg/dL 09/05 Unknown COMPREHENSIVE METABOLIC 23801 CALCIUM 9.3 mg/dL 2017 Unknown COMPREHENSIVE METABOLIC 91461 POTASSIUM 4.8 mmol/L 09/27 Unknown COMPREHENSIVE METABOLIC 79479 Total Protein 7.0 g/dL Unknown COMPREHENSIVE METABOLIC 46517 Glucose 91 mg/dL 2017 Unknown COMPREHENSIVE METABOLIC 83377 Bicarbonate 23 mmol/L 09/05 Unknown COMPREHENSIVE METABOLIC 23042 AGAP 10 mmol/L 2017 Unknown COMPLETE BLOOD COUNT [id number] WBC 7.5 10e9/L 09/28/19 18 Unknown COMPLETE BLOOD COUNT [id number] RBC 4.13 10e12/L 2017 Unknown COMPLETE BLOOD COUNT [id number] HEMOGLOBIN 12.6 g/dL 09/28/19 18 Unknown COMPLETE BLOOD COUNT [id number] HEMATOCRIT 38.4 % 09/28/19 18 Unknown COMPLETE BLOOD COUNT [id number] MCV 93.0 fL 8 Unknown COMPLETE BLOOD COUNT [id number] MCH 30.5 pg 8 Unknown COMPLETE BLOOD COUNT 7008204 MCHC 32.8 g/dL 8 Unknown COMPLETE BLOOD COUNT [id number] PLATELET COUNT 204 10e9/L Unknown COMPLETE BLOOD COUNT 3148547 Mean Plt Volume 10.9 fL Unknown COMPLETE BLOOD COUNT 9190388 Neut Auto 43.1 % 8 Unknown COMPLETE BLOOD COUNT [id number] Lymph Auto 45.0 % 09/28/19 18 Unknown COMPLETE BLOOD COUNT 1668315 [place] Auto 9.2 % 8 Unknown COMPLETE BLOOD COUNT 6693949 RDW 13.4 % 8 Unknown COMPLETE BLOOD COUNT 0815621 Eos Auto 2.3 % 8 Unknown COMPLETE BLOOD COUNT [id number] Baso Auto 0.4 % 8 Unknown COMPLETE BLOOD COUNT 0075015 Neutrophil Abs 3.23 10e9/L Unknown COMPLETE BLOOD COUNT 7600813 Lymphocyte Abs 3.38 10e9/L Unknown COMPLETE BLOOD COUNT [id number] Monocyte Abs 0.69 10e9/L 09/05 Unknown COMPLETE BLOOD COUNT [id number] Eosinophil Abs 0.17 10e9/L Unknown COMPLETE BLOOD COUNT [id number] RDW-SD 44.4 fL 8 Unknown COMPLETE BLOOD COUNT [id number] Basophil Abs 0.03 10e9/L 09/05 Unknown GFR CALC 3561350 GFR Non Afr Amr 53 mL/min 09/27/2017 Unk nown GFR CALC 6879718 GFR Afr Amr >60 mL/min 09/27/2017 Unknow n GLYCOSYLATED HEMOGLOBIN TEST 03217 Hgb A1c 64236-3 5.4 % 0 09/27/2017 Unknown MEAN GLUC 7607507 Calc Mean Gluc 108 mg/dL 09/27/2017 Unkn own MEAN GLUC 5210044 Calc Mean Gluc 114 mg/dL 11/01/2016 Unkn own LIPID GROUP 60946 Cholesterol 146 mg/dL 11/01/2016 Unkno wn LIPID GROUP 00073 Triglyceride 119 mg/dL 11/01/2016 Unkn own LIPID GROUP 63868 HDL CHOLESTEROL 47 mg/dL 11/01/2016 U nknown LIPID GROUP 80439 Chol/HDL Ratio 3.11 ratio 11/01/2016 U nknown LIPID GROUP 18136 NON-HDL Chol 99 mg/dL 11/01/2016 [facility] own [facility]IP[facility] 89450 LDL Cholesterol 75 mg/dL 11/01/2016 U nknown GLYCOSYLATED HEMOGLOBIN TEST 02982 Hgb A1c 40653-8 5.6 % 0 11/01/2016 Unknown COMPREHENSIVE METABOLIC 67331 AST 22 U/L 2016 Unknown COMPREHENSIVE METABOLIC 29198 ALT 12 U/L 2016 Unknown COMPREHENSIVE METABOLIC 09161 BUN 17 mg/dL 2016 Unknown COMPREHENSIVE METABOLIC 07684 ALBUMIN 4.0 g/dL 2016 Unknown COMPREHENSIVE METABOLIC 01992 CHLORIDE 110 mmol/L 11/01 Unknown COMPREHENSIVE METABOLIC 94870 Bili Total 0.4 mg/dL 11/01 Unknown COMPREHENSIVE METABOLIC 64118 ALK PHOS 63 U/L 2016 Unknown COMPREHENSIVE METABOLIC 63664 SODIUM 140 mmol/L 11/01 Unknown COMPREHENSIVE METABOLIC 59559 CREATININE 1.05 mg/dL 10/06 Unknown COMPREHENSIVE METABOLIC 01996 CALCIUM 9.2 mg/dL 2016 Unknown COMPREHENSIVE METABOLIC 54470 POTASSIUM 4.2 mmol/L 11/01 Unknown COMPREHENSIVE METABOLIC 19392 Total Protein 6.2 g/dL Unknown COMPREHENSIVE METABOLIC 44729 Glucose 87 mg/dL 2016 Unknown COMPREHENSIVE METABOLIC 10843 Bicarbonate 24 mmol/L 10/06 Unknown COMPREHENSIVE METABOLIC 90494 AGAP 6 mmol/L 2016 Unknown GFR CALC [id number] GFR Non Afr Amr 51 mL/min 11/01/2016 Unk nown GFR CALC [id number] GFR Afr Amr >60 mL/min 11/01/2016 Unknow n COMPLETE BLOOD COUNT [id number] WBC 6.7 10e9/L 11/02/19 17 Unknown COMPLETE BLOOD COUNT [id number] RBC 4.04 10e12/L 2016 Unknown COMPLETE BLOOD COUNT [id number] HEMOGLOBIN 12.1 g/dL 11/02/19 17 Unknown COMPLETE BLOOD COUNT [id number] HEMATOCRIT 38.0 % 11/02/19 17 Unknown COMPLETE BLOOD COUNT [id number] MCV 94.1 fL 7 Unknown COMPLETE BLOOD COUNT [id number] MCH 30.0 pg 7 Unknown COMPLETE BLOOD COUNT 0204154 MCHC 31.8 g/dL 7 Unknown COMPLETE BLOOD COUNT [id number] PLATELET COUNT 206 10e9/L Unknown COMPLETE BLOOD COUNT 0557786 Mean Plt Volume 11.3 fL Unknown COMPLETE BLOOD COUNT 5126236 Neut Auto 35.8 % 7 Unknown COMPLETE BLOOD COUNT [id number] Lymph Auto 51.6 % 11/02/19 17 Unknown COMPLETE BLOOD COUNT 8135632 [place] Auto 8.8 % 7 Unknown COMPLETE BLOOD COUNT [id number] RDW 13.5 % 7 Unknown COMPLETE BLOOD COUNT 6478597 Eos Auto 3.4 % 7 Unknown COMPLETE BLOOD COUNT 1708571 Baso Auto 0.4 % 7 Unknown COMPLETE BLOOD COUNT 8091957 Neutrophil Abs 2.40 10e9/L Unknown COMPLETE BLOOD COUNT 9303510 Lymphocyte Abs 3.46 10e9/L Unknown COMPLETE BLOOD COUNT [id number] Monocyte Abs 0.59 10e9/L 10/06 Unknown COMPLETE BLOOD COUNT [id number] Eosinophil Abs 0.23 10e9/L Unknown COMPLETE BLOOD COUNT 7089063 RDW-SD 45.3 fL 7 Unknown COMPLETE BLOOD COUNT [id number] Basophil Abs 0.03 10e9/L 10/06 Unknown THYROID STIMULATING HORMONE 93198 TSH 1.981 uIU/mL 11/01/2016 Unknown COMPLETE BLOOD COUNT [id number] WBC 6.0 10e9/L 05/14/19 17 Unknown COMPLETE BLOOD COUNT [id number] RBC 4.29 10e12/L 2016 Unknown COMPLETE BLOOD COUNT [id number] HEMOGLOBIN 12.9 g/dL 05/14/19 17 Unknown COMPLETE BLOOD COUNT 6346584 HEMATOCRIT 38.4 % 05/14/19 17 Unknown COMPLETE BLOOD COUNT 1889361 MCV 89.5 fL 7 Unknown COMPLETE BLOOD COUNT 8943368 MCH 30.1 pg 7 Unknown COMPLETE BLOOD COUNT 1603780 MCHC 33.6 g/dL 7 Unknown COMPLETE BLOOD COUNT [id number] PLATELET COUNT 181 10e9/L 11/2016 Unknown COMPLETE BLOOD COUNT 7003494 Mean Plt Volume 11.7 fL 11/2016 Unknown COMPLETE BLOOD COUNT 8990928 Neut Auto 36.9 % 7 Unknown COMPLETE BLOOD COUNT 9965919 Lymph Auto 50.4 % 05/14/19 17 Unknown COMPLETE BLOOD COUNT 5953513 [place] Auto 9.0 % 7 Unknown COMPLETE BLOOD COUNT 9859399 RDW 13.7 % 7 Unknown COMPLETE BLOOD COUNT 9154849 Eos Auto 3.4 % 7 Unknown COMPLETE BLOOD COUNT 7721813 Baso Auto 0.3 % 7 Unknown COMPLETE BLOOD COUNT 9404293 Neutrophil Abs 2.21 10e9/L Unknown COMPLETE BLOOD COUNT 8248275 Lymphocyte Abs 3.02 10e9/L Unknown COMPLETE BLOOD COUNT [id number] Monocyte Abs 0.54 10e9/L 11/2016 Unknown COMPLETE BLOOD COUNT 7650783 Eosinophil Abs 0.20 10e9/L Unknown COMPLETE BLOOD COUNT 8430699 RDW-SD 44.0 fL 7 Unknown COMPLETE BLOOD COUNT [id number] Basophil Abs 0.02 10e9/L 11/2016 Unknown GLYCOSYLATED HEMOGLOBIN TEST 47564 Hgb A1c 50985-5 5.4 % 0 05/13/2016 Unknown THYROID STIMULATING HORMONE 07223 TSH 2.200 uIU/mL 05/13/2016 Unknown GFR CALC 3071285 GFR Non Afr Amr 50 mL/min 05/13/2016 Unk nown GFR CALC 2363264 GFR Afr Amr >60 mL/min 05/13/2016 Unknow n MEAN GLUC 0051227 Calc Mean Gluc 108 mg/dL 05/13/2016 Unkn own COMPREHENSIVE METABOLIC 75472 AST 18 U/L 2016 Unknown COMPREHENSIVE METABOLIC 75629 ALT 10 U/L 2016 Unknown COMPREHENSIVE METABOLIC 71797 BUN 20 mg/dL 2016 Unknown COMPREHENSIVE METABOLIC 81045 ALBUMIN 4.1 g/dL 2016 Unknown COMPREHENSIVE METABOLIC 03100 CHLORIDE 109 mmol/L 05/13 Unknown COMPREHENSIVE METABOLIC 70739 Bili Total 0.6 mg/dL 05/13 Unknown COMPREHENSIVE METABOLIC 97117 ALK PHOS 64 U/L 2016 Unknown COMPREHENSIVE METABOLIC 71050 SODIUM 141 mmol/L 05/13 Unknown COMPREHENSIVE METABOLIC 94654 CREATININE 1.06 mg/dL 11/2016 Unknown COMPREHENSIVE METABOLIC 40740 CALCIUM 9.9 mg/dL 2016 Unknown COMPREHENSIVE METABOLIC 43928 POTASSIUM 4.2 mmol/L 05/13 Unknown COMPREHENSIVE METABOLIC 15620 Total Protein 6.3 g/dL Unknown COMPREHENSIVE METABOLIC 67455 Glucose 99 mg/dL 2016 Unknown COMPREHENSIVE METABOLIC 10186 Bicarbonate 21 mmol/L 11/2016 Unknown COMPREHENSIVE METABOLIC 57072 AGAP 11 mmol/L 2016 Unknown LIPID GROUP 33545 Cholesterol 169 mg/dL 11/25/2015 Unkno wn LIPID GROUP 79848 Triglyceride 165 mg/dL 11/25/2015 Unkn own LIPID GROUP 44465 HDL CHOLESTEROL 43 mg/dL 11/25/2015 U nknown LIPID GROUP 34679 Chol/HDL Ratio 3.93 ratio 11/25/2015 U nknown LIPID GROUP 86470 NON-HDL Chol 126 mg/dL 11/25/2015 Unkn own LIPID GROUP 21714 LDL Cholesterol 93 mg/dL 11/25/2015 U nknown COMPREHENSIVE METABOLIC 63644 AST 18 U/L 2015 Unknown COMPREHENSIVE METABOLIC 29697 ALT 10 U/L 2015 Unknown COMPREHENSIVE METABOLIC 50835 BUN 20 mg/dL 2015 Unknown COMPREHENSIVE METABOLIC 75575 ALBUMIN 3.9 g/dL 2015 Unknown COMPREHENSIVE METABOLIC 82408 CHLORIDE 110 mmol/L 11/24 Unknown COMPREHENSIVE METABOLIC 32507 Bili Total 0.5 mg/dL 11/24 Unknown COMPREHENSIVE METABOLIC 00811 ALK PHOS 72 U/L 2015 Unknown COMPREHENSIVE METABOLIC 59862 SODIUM 141 mmol/L 11/24 Unknown COMPREHENSIVE METABOLIC 44572 CREATININE 1.12 mg/dL 11/06 Unknown COMPREHENSIVE METABOLIC 58457 CALCIUM 9.7 mg/dL 2015 Unknown COMPREHENSIVE METABOLIC 03063 POTASSIUM 4.4 mmol/L 11/24 Unknown COMPREHENSIVE METABOLIC 50011 Total Protein 6.2 g/dL Unknown COMPREHENSIVE METABOLIC 89189 Glucose 90 mg/dL 2015 Unknown COMPREHENSIVE METABOLIC 73647 Bicarbonate 23 mmol/L 11/06 Unknown COMPREHENSIVE METABOLIC 60144 AGAP 8 mmol/L 2015 Unknown GFR CALC 9536763 GFR Non Afr Amr 47 mL/min 11/25/2015 Unk nown GFR CALC 7403957 GFR Afr Amr 57 mL/min 11/25/2015 Unknown GLYCOSYLATED HEMOGLOBIN TEST 06595 Hgb A1c 06742-1 5.5 % 0 11/25/2015 Unknown THYROID STIMULATING HORMONE 99594 TSH 2.537 uIU/mL 11/25/2015 Unknown FREE T4 48260 T4 Free 1.36 ng/dL 11/25/2015 Unknown COMPLETE BLOOD COUNT 1259621 WBC 6.8 10e9/L 11/25/19 16 Unknown COMPLETE BLOOD COUNT 2755211 RBC 4.20 10e12/L 2015 Unknown COMPLETE BLOOD COUNT 3297464 HEMOGLOBIN 12.5 g/dL 11/25/19 16 Unknown COMPLETE BLOOD COUNT 8202893 HEMATOCRIT 38.0 % 11/25/19 16 Unknown COMPLETE BLOOD COUNT 2040917 MCV 90.5 fL 6 Unknown COMPLETE BLOOD COUNT 0432749 MCH 29.8 pg 6 Unknown COMPLETE BLOOD COUNT 3908971 MCHC 32.9 g/dL 6 Unknown COMPLETE BLOOD COUNT 8775722 PLATELET COUNT 197 10e9/L Unknown COMPLETE BLOOD COUNT 8715352 Mean Plt Volume 11.7 fL Unknown COMPLETE BLOOD COUNT 1061989 Neut Auto 41.3 % 6 Unknown COMPLETE BLOOD COUNT 2745598 Lymph Auto 47.1 % 11/25/19 16 Unknown COMPLETE BLOOD COUNT 1367775 [place] Auto 7.8 % 6 Unknown COMPLETE BLOOD COUNT 5638364 RDW 13.8 % 6 Unknown COMPLETE BLOOD COUNT 5499817 Eos Auto 3.4 % 6 Unknown COMPLETE BLOOD COUNT 1375774 Baso Auto 0.4 % 6 Unknown COMPLETE BLOOD COUNT 0705461 Neutrophil Abs 2.81 10e9/L Unknown COMPLETE BLOOD COUNT 6762352 Lymphocyte Abs 3.20 10e9/L Unknown COMPLETE BLOOD COUNT 7307519 Monocyte Abs 0.53 10e9/L 11/06 Unknown COMPLETE BLOOD COUNT 6019831 Eosinophil Abs 0.23 10e9/L Unknown COMPLETE BLOOD COUNT 4611888 RDW-SD 44.4 fL 6 Unknown COMPLETE BLOOD COUNT 9335145 Basophil Abs 0.03 10e9/L 11/06 Unknown MEAN GLUC 9091932 Calc Mean Gluc 111 mg/dL 11/25/2015 [place] [address] Glucose 89 MG/DL 02/19 [place] [address] CREATININE 1.12 MG/DL [place] [address] BUN 20 MG/DL 02/19 [place] [address] SODIUM 139 MMOL/L 02/04 [place] [address] POTASSIUM 4.6 MMOL/L 02/04 [place] [address] CHLORIDE 108 MMOL/L 02/04 [place] [address] BICARB 26 MMOL/L 02/19 [place] [address] ANION GAP 5 MEQ/L 02/19 [place] [address] CALCIUM 10.0 MG/DL 02/04 Unknown GFR CALC 3272756 GFR AA 57.0L ML/MIN 02/19/2015 Unknow n GFR CALC 0412223 GFR NON-AA 47.0L ML/MIN 02/19/2015 Unkno wn THYROID STIMULATING HORMONE 43159 TSH 2.378 uIU/ML 11/14/2014 Unknown COMPLETE BLOOD COUNT 2822134 WBC 6.4 10e9/L 11/15/19 15 Unknown COMPLETE BLOOD COUNT 5212987 RBC 3.99 10e12/L 2014 Unknown COMPLETE BLOOD COUNT 7277596 HGB 11.9 g/dL 5 Unknown COMPLETE BLOOD COUNT 0358199 HCT DET 36.9 % 5 Unknown COMPLETE BLOOD COUNT 2115041 MCV 92.5 fL 5 Unknown COMPLETE BLOOD COUNT 3994311 MCH 29.8 pg 5 Unknown COMPLETE BLOOD COUNT 5653895 MCHC 32.2 g/dL 5 Unknown COMPLETE BLOOD COUNT 1228667 PLT 172 10e9/L 11/15/19 15 Unknown COMPLETE BLOOD COUNT 4431000 MPV 11.7 fL 5 Unknown COMPLETE BLOOD COUNT 2131560 [place] % 40.4 % 5 Unknown COMPLETE BLOOD COUNT 3521107 LY % 48.0 % 5 Unknown COMPLETE BLOOD COUNT 8478537 MON % 8.3 % 5 Unknown COMPLETE BLOOD COUNT 6574007 EOS % 2.8 % 5 Unknown COMPLETE BLOOD COUNT 2337957 BASO % 0.5 % 5 Unknown COMPLETE BLOOD COUNT 4736121 RDW 13.6 % 5 Unknown COMPLETE BLOOD COUNT 6136167 ABS CINTHYA 2.59 10e9/L 015 Unknown COMPLETE BLOOD COUNT 1577115 ABS LYMPH 3.07 10e9/L 015 Unknown COMPLETE BLOOD COUNT 3835848 ABS MONO 0.53 10e9/L 015 Unknown COMPLETE BLOOD COUNT 0992505 ABS EOS 0.18 10e9/L 015 Unknown COMPLETE BLOOD COUNT 3407873 ABS BASO 0.03 10e9/L 015 Unknown COMPLETE BLOOD COUNT 7966273 RDW-SD 44.9 fL 5 Unknown LIPID GROUP 87981 HDL TEST 42 MG/DL 11/14/2014 Unknown LIPID GROUP 06823 TRIG 177 MG/DL 11/14/2014 Unknown LIPID GROUP 80916 TEST LDL 72 MG/DL 11/14/2014 Unknown LIPID GROUP 21743 CHOL 149 MG/DL 11/14/2014 Unknown LIPID GROUP 76643 RCHOL/HDL 3.55 RATIO 11/14/2014 Unknow n LIPID GROUP 79054 NON-HDL CH 107 MG/DL 11/14/2014 Unknow n GLYCOSYLATED HEMOGLOBIN TEST 57215 A1C HPLC 17305-1 5.5 % 0 11/14/2014 Unknown FREE T4 76158 FREE T4 1.39 NG/DL 11/14/2014 Unknown GFR CALC 9609697 GFR AA 55.0L ML/MIN 11/14/2014 Unknow n GFR CALC 6057984 GFR NON-AA 46.0L ML/MIN 11/14/2014 Unkno wn COMPREHENSIVE METABOLIC 22481 AST 17 U/L 2014 Unknown COMPREHENSIVE METABOLIC 61697 ALT 10 IU/L 2014 Unknown COMPREHENSIVE METABOLIC 61973 BUN 20 MG/DL 2014 Unknown COMPREHENSIVE METABOLIC 31101 ALBUMIN 3.9 GM/DL 2014 Unknown COMPREHENSIVE METABOLIC 45935 CHLORIDE 111 MMOL/L 11/14 Unknown COMPREHENSIVE METABOLIC 68984 BILI TOT 0.4 MG/DL 2014 Unknown COMPREHENSIVE METABOLIC 00962 ALK PHOS 70 U/L 2014 Unknown COMPREHENSIVE METABOLIC 11400 SODIUM 142 MMOL/L 11/14 Unknown COMPREHENSIVE METABOLIC 08325 CREATININE 1.16 MG/DL 11/05 Unknown COMPREHENSIVE METABOLIC 46090 CALCIUM 9.4 MG/DL 2014 Unknown COMPREHENSIVE METABOLIC 73628 POTASSIUM 4.6 MMOL/L 11/14 Unknown COMPREHENSIVE METABOLIC 86239 PROT TOT 6.2 GM/DL 2014 Unknown COMPREHENSIVE METABOLIC 67859 Glucose 90 MG/DL 2014 Unknown COMPREHENSIVE METABOLIC 03069 BICARB 24 MMOL/L 2014 Unknown COMPREHENSIVE METABOLIC 24265 ANION GAP 7 MEQ/L 2014 Unknown THYROID STIMULATING HORMONE 53284 TSH 2.427 uIU/ML 05/10/2014 Unknown LIPID GROUP 73930 HDL TEST 47 MG/DL 05/10/2014 Unknown LIPID GROUP 59926 TRIG 145 MG/DL 05/10/2014 Unknown LIPID GROUP 42980 TEST LDL 73 MG/DL 05/10/2014 Unknown LIPID GROUP 34175 CHOL 149 MG/DL 05/10/2014 Unknown LIPID GROUP 48078 RCHOL/HDL 3.17 RATIO 05/10/2014 Unknow n LIPID GROUP 14178 NON-HDL CH 102 MG/DL 05/10/2014 Unknow n COMPREHENSIVE METABOLIC 02580 AST 17 U/L 2014 Unknown COMPREHENSIVE METABOLIC 93334 ALT 9 IU/L 2014 Unknown COMPREHENSIVE METABOLIC 10819 BUN 19 MG/DL 2014 Unknown COMPREHENSIVE METABOLIC 79418 ALBUMIN 4.3 GM/DL 2014 Unknown COMPREHENSIVE METABOLIC 67519 CHLORIDE 108 MMOL/L 05/10 Unknown COMPREHENSIVE METABOLIC 03864 BILI TOT 0.5 MG/DL 2014 Unknown COMPREHENSIVE METABOLIC 54161 ALK PHOS 68 U/L 2014 Unknown COMPREHENSIVE METABOLIC 41309 SODIUM 140 MMOL/L 05/10 Unknown COMPREHENSIVE METABOLIC 21859 CREATININE 1.08 MG/DL 08/2014 Unknown COMPREHENSIVE METABOLIC 12433 CALCIUM 9.9 MG/DL 2014 Unknown COMPREHENSIVE METABOLIC 38827 POTASSIUM 4.3 MMOL/L 05/10 Unknown COMPREHENSIVE METABOLIC 82291 PROT TOT 7.2 GM/DL 2014 Unknown COMPREHENSIVE METABOLIC 33424 Glucose 94 MG/DL 2014 Unknown COMPREHENSIVE METABOLIC 85566 BICARB 26 MMOL/L 2014 Unknown COMPREHENSIVE METABOLIC 63397 ANION GAP 6 MEQ/L 2014 Unknown GFR CALC 4347816 GFR AA 60.0L ML/MIN 05/10/2014 Unknow n GFR CALC 8434321 GFR NON-AA 49.0L ML/MIN 05/10/2014 Unkno wn GLYCOSYLATED HEMOGLOBIN TEST 72362 A1C HPLC 45090-6 5.6 % 0 05/10/2014 Unknown COMPLETE BLOOD COUNT 5540359 WBC 7.2 10e9/L 05/11/19 15 Unknown COMPLETE BLOOD COUNT 2936394 RBC 4.28 10e12/L 2014 Unknown COMPLETE BLOOD COUNT 6209794 HGB 12.8 g/dL 5 Unknown COMPLETE BLOOD COUNT 5199686 HCT DET 39.3 % 5 Unknown COMPLETE BLOOD COUNT 6541109 MCV 91.8 fL 5 Unknown COMPLETE BLOOD COUNT 7940017 MCH 29.9 pg 5 Unknown COMPLETE BLOOD COUNT 0045987 MCHC 32.6 g/dL 5 Unknown COMPLETE BLOOD COUNT 1169335 PLT 189 10e9/L 05/11/19 15 Unknown COMPLETE BLOOD COUNT 6330878 MPV 11.2 fL 5 Unknown COMPLETE BLOOD COUNT 8569837 [place] % 38.0 % 5 Unknown COMPLETE BLOOD COUNT 7191645 LY % 51.0 % 5 Unknown COMPLETE BLOOD COUNT 6950502 MON % 7.7 % 5 Unknown COMPLETE BLOOD COUNT 5583753 EOS % 2.9 % 5 Unknown COMPLETE BLOOD COUNT 7817659 BASO % 0.4 % 5 Unknown COMPLETE BLOOD COUNT 7512960 RDW 14.0 % 5 Unknown COMPLETE BLOOD COUNT 0551982 ABS CINTHYA 2.74 10e9/L 015 Unknown COMPLETE BLOOD COUNT 6649308 ABS LYMPH 3.67 10e9/L 015 Unknown COMPLETE BLOOD COUNT 4506672 ABS MONO 0.55 10e9/L 015 Unknown COMPLETE BLOOD COUNT 4783794 ABS EOS 0.21 10e9/L 015 Unknown COMPLETE BLOOD COUNT 3584175 ABS BASO 0.03 10e9/L 015 Unknown COMPLETE BLOOD COUNT 7340137 RDW-SD 46.1 fL 5 Unknown FREE T4 89776 FREE T4 1.14 NG/DL 05/10/2014 Unknown GLYCOSYLATED HEMOGLOBIN TEST 55864 A1C HPLC 79190-9 5.2 % 0 03/29/2013 Unknown FREE T4 33289 FREE T4 1.40 NG/DL 03/28/2013 Unknown GFR CALC 8313290 GFR AA >60 ML/MIN 03/28/2013 Unknown GFR CALC 1221736 GFR NON-AA 52.0L ML/MIN 03/28/2013 Unkno wn COMPREHENSIVE METABOLIC 61942 AST 15 U/L 2013 Unknown COMPREHENSIVE METABOLIC 70104 ALT 9 IU/L 2013 Unknown COMPREHENSIVE METABOLIC 76691 BUN 17 MG/DL 2013 Unknown COMPREHENSIVE METABOLIC 13547 ALBUMIN 4.0 GM/DL 2013 Unknown COMPREHENSIVE METABOLIC 35033 CHLORIDE 112 MMOL/L 03/28 Unknown COMPREHENSIVE METABOLIC 97330 BILI TOT 0.5 MG/DL 2013 Unknown COMPREHENSIVE METABOLIC 65506 ALK PHOS 66 U/L 2013 Unknown COMPREHENSIVE METABOLIC 57244 SODIUM 140 MMOL/L 03/28 Unknown COMPREHENSIVE METABOLIC 13228 CREATININE 1.03 MG/DL 03/08 Unknown COMPREHENSIVE METABOLIC 12959 CALCIUM 9.5 MG/DL 2013 Unknown COMPREHENSIVE METABOLIC 22957 POTASSIUM 4.1 MMOL/L 03/28 Unknown COMPREHENSIVE METABOLIC 48276 PROT TOT 6.2 GM/DL 2013 Unknown COMPREHENSIVE METABOLIC 39478 Glucose 102 MG/DL 2013 Unknown COMPREHENSIVE METABOLIC 57520 BICARB 23 MMOL/L 2013 Unknown COMPREHENSIVE METABOLIC 65675 ANION GAP 5 MEQ/L 2013 Unknown THYROID STIMULATING HORMONE 30687 TSH 2.074 uIU/ML 03/28/2013 Unknown VITAMIN B 12 FOLIC ACID 07118|16951 VIT B 12 423 PG/ML 03/08 Unknown VITAMIN B 12 FOLIC ACID 14348|25328 FOLIC ACID 19.7 NG/ML Unknown LIPID GROUP 65167 HDL TEST 40 MG/DL 03/28/2013 Unknown LIPID GROUP 03464 TRIG 145 MG/DL 03/28/2013 Unknown LIPID GROUP 48190 TEST LDL 81 MG/DL 03/28/2013 Unknown LIPID GROUP 36687 CHOL 150 MG/DL 03/28/2013 Unknown LIPID GROUP 40525 RCHOL/HDL 3.75 RATIO 03/28/2013 Unknow n COMPLETE BLOOD COUNT 1239412 WBC 6.0 10e9/L 03/28/19 14 Unknown COMPLETE BLOOD COUNT 0481132 RBC 4.26 10e12/L 2013 Unknown COMPLETE BLOOD COUNT 3613388 HGB 12.7 g/dL 4 Unknown COMPLETE BLOOD COUNT 6504795 HCT DET 38.7 % 4 Unknown COMPLETE BLOOD COUNT 5033704 MCV 90.8 fL 4 Unknown COMPLETE BLOOD COUNT 9464052 MCH 29.8 pg 4 Unknown COMPLETE BLOOD COUNT 3661063 MCHC 32.8 g/dL 4 Unknown COMPLETE BLOOD COUNT 4678682 PLT 178 10e9/L 03/28/19 14 Unknown COMPLETE BLOOD COUNT 9134777 MPV 11.7 fL 4 Unknown COMPLETE BLOOD COUNT 8502021 C[place] % 30.5 % 4 Unknown COMPLETE BLOOD COUNT 6094626 LY % 55.4 % 4 Unknown COMPLETE BLOOD COUNT 7419613 MON % 9.0 % 4 Unknown COMPLETE BLOOD COUNT 3308422 EOS % 4.4 % 4 Unknown COMPLETE BLOOD COUNT 4913175 BASO % 0.7 % 4 Unknown COMPLETE BLOOD COUNT 9973527 RDW 13.3 % 4 Unknown COMPLETE BLOOD COUNT 5469405 ABS CINTHYA 1.83 10e9/L 014 Unknown COMPLETE BLOOD COUNT 8814586 ABS LYMPH 3.32 10e9/L 014 Unknown COMPLETE BLOOD COUNT 2630305 ABS MONO 0.54 10e9/L 014 Unknown COMPLETE BLOOD COUNT 6559480 ABS EOS 0.26 10e9/L 014 Unknown COMPLETE BLOOD COUNT 0829880 ABS BASO 0.04 10e9/L 014 Unknown COMPLETE BLOOD COUNT 7884200 RDW-SD 43.2 fL 4 Unknown HEMOGLOBIN A1C (GLYCOSYLATED) 0797110 A1C HPLC 27371-7 5.5 % 02/24/2012 Unknown COMPLETE BLOOD COUNT 1462364 WBC 6.0 10e9/L 02/23/20 12 Unknown COMPLETE BLOOD COUNT 1872154 RBC 4.22 10e12/L 2011 Unknown COMPLETE BLOOD COUNT 9515576 HGB 12.4 g/dL 2 Unknown COMPLETE BLOOD COUNT 0629078 HCT DET 38.2 % 2 Unknown COMPLETE BLOOD COUNT 6990548 MCV 90.5 fL 2 Unknown COMPLETE BLOOD COUNT 7251021 MCH 29.4 pg 2 Unknown COMPLETE BLOOD COUNT 1452027 MCHC 32.5 g/dL 2 Unknown COMPLETE BLOOD COUNT 2984804 PLT 187 10e9/L 02/23/20 12 Unknown COMPLETE BLOOD COUNT 8344823 MPV 11.5 fL 2 Unknown COMPLETE BLOOD COUNT 5744389 CINTHYA % 36.4 % 2 Unknown COMPLETE BLOOD COUNT 8442641 LY % 51.0 % 2 Unknown COMPLETE BLOOD COUNT 2580125 MON % 8.7 % 2 Unknown COMPLETE BLOOD COUNT 6190817 EOS % 3.2 % 2 Unknown COMPLETE BLOOD COUNT 4208622 BASO % 0.7 % 2 Unknown COMPLETE BLOOD COUNT 3690106 RDW 13.7 % 2 Unknown COMPLETE BLOOD COUNT 6576482 ABS CINTHYA 2.18 10e9/L 012 Unknown COMPLETE BLOOD COUNT 8577099 ABS LYMPH 3.06 10e9/L 012 Unknown COMPLETE BLOOD COUNT 1870289 ABS MONO 0.52 10e9/L 012 Unknown COMPLETE BLOOD COUNT 0311040 ABS EOS 0.19 10e9/L 012 Unknown COMPLETE BLOOD COUNT 3156792 ABS BASO 0.04 10e9/L 012 Unknown COMPLETE BLOOD COUNT 3157758 RDW-SD 44.3 fL 2 Unknown LIPID GROUP 32394 HDL TEST 42 MG/DL 02/23/2012 Unknown LIPID GROUP 57426 TRIG 156 MG/DL 02/23/2012 Unknown LIPID GROUP 49076 TEST LDL 80 MG/DL 02/23/2012 Unknown LIPID GROUP 49385 CHOL 153 MG/DL 02/23/2012 Unknown LIPID GROUP 82944 RCHOL/HDL 3.64 RATIO 02/23/2012 Unknow n FREE T4 11310 FREE T4 1.22 NG/DL 02/23/2012 Unknown COMPREHENSIVE METABOLIC 02260 AST 20 U/L 2011 Unknown COMPREHENSIVE METABOLIC 47060 ALT 11 IU/L 2011 Unknown COMPREHENSIVE METABOLIC 95287 BUN 19 MG/DL 2011 Unknown COMPREHENSIVE METABOLIC 23733 ALBUMIN 4.3 GM/DL 2011 Unknown COMPREHENSIVE METABOLIC 86019 CHLORIDE 109 MMOL/L 02/22 Unknown COMPREHENSIVE METABOLIC 98358 BILI TOT 0.6 MG/DL 2011 Unknown COMPREHENSIVE METABOLIC 30775 ALK PHOS 84 U/L 2011 Unknown COMPREHENSIVE METABOLIC 65641 SODIUM 142 MMOL/L 02/22 Unknown COMPREHENSIVE METABOLIC 64555 CREATININE 1.09 MG/DL 02/04 Unknown COMPREHENSIVE METABOLIC 13943 CALCIUM 9.8 MG/DL 2011 Unknown COMPREHENSIVE METABOLIC 81555 POTASSIUM 4.2 MMOL/L 02/22 Unknown COMPREHENSIVE METABOLIC 05466 PROT TOT 6.4 GM/DL 2011 Unknown COMPREHENSIVE METABOLIC 20991 Glucose 89 MG/DL 2011 Unknown COMPREHENSIVE METABOLIC 88445 BICARB 25 MMOL/L 2011 Unknown COMPREHENSIVE METABOLIC 67120 ANION GAP 8 MEQ/L 2011 Unknown GFR CALC 4142643 GFR AA 60.0L ML/MIN 02/23/2012 Unknow n GFR CALC 2340563 GFR NON-AA 49.0L ML/MIN 02/23/2012 Unkno wn THYROID STIMULATING HORMONE 23547 TSH 2.450 uIU/ML 02/23/2012 Unknown COMPREHENSIVE METABOLIC 02714 AST 22 U/L 2011 Unknown COMPREHENSIVE METABOLIC 04655 ALT 14 IU/L 2011 Unknown COMPREHENSIVE METABOLIC 56776 BUN 21 MG/DL 2011 Unknown COMPREHENSIVE METABOLIC 63147 ALBUMIN 4.3 GM/DL 2011 Unknown COMPREHENSIVE METABOLIC 04676 CHLORIDE 106 MMOL/L 04/01 Unknown COMPREHENSIVE METABOLIC 10418 BILI TOT 0.4 MG/DL 2011 Unknown COMPREHENSIVE METABOLIC 01857 ALK PHOS 80 U/L 2011 Unknown COMPREHENSIVE METABOLIC 56006 SODIUM 141 MMOL/L 04/01 Unknown COMPREHENSIVE METABOLIC 17202 CREATININE 1.13 MG/DL 03/08 Unknown COMPREHENSIVE METABOLIC 83137 CALCIUM 9.4 MG/DL 2011 Unknown COMPREHENSIVE METABOLIC 61912 POTASSIUM 4.3 MMOL/L 04/01 Unknown COMPREHENSIVE METABOLIC 03377 PROT TOT 6.7 GM/DL 2011 Unknown COMPREHENSIVE METABOLIC 05044 Glucose 98 MG/DL 2011 Unknown COMPREHENSIVE METABOLIC 17235 BICARB 25 MMOL/L 2011 Unknown COMPREHENSIVE METABOLIC 57377 ANION GAP 10 MEQ/L 2011 Unknown LIPID GROUP 72988 HDL TEST 44 MG/DL 04/01/2011 Unknown LIPID GROUP 67566 TRIG 164 MG/DL 04/01/2011 Unknown LIPID GROUP 40668 TEST LDL 98 MG/DL 04/01/2011 Unknown LIPID GROUP 98015 CHOL 175 MG/DL 04/01/2011 Unknown LIPID GROUP 57071 RCHOL/HDL 3.98 RATIO 04/01/2011 Unknow n COMPLETE BLOOD COUNT 78802 WBC 6.7 10e9/L 04/01/19 12 Unknown COMPLETE BLOOD COUNT 01761 RBC 4.36 10e12/L 2011 Unknown COMPLETE BLOOD COUNT 75281 HGB 12.9 g/dL 2 Unknown COMPLETE BLOOD COUNT 49060 HCT DET 39.4 % 2 Unknown COMPLETE BLOOD COUNT 84696 MCV 90.4 fL 2 Unknown COMPLETE BLOOD COUNT 95994 MCH 29.6 pg 2 Unknown COMPLETE BLOOD COUNT 98470 MCHC 32.7 g/dL 2 Unknown COMPLETE BLOOD COUNT 25720 PLT 184 10e9/L 04/01/19 12 Unknown COMPLETE BLOOD COUNT 01674 MPV 10.9 fL 2 Unknown COMPLETE BLOOD COUNT 22327 CINTHYA % 41.5 % 2 Unknown COMPLETE BLOOD COUNT 86779 LY % 45.7 % 2 Unknown COMPLETE BLOOD COUNT 33202 MON % 9.4 % 2 Unknown COMPLETE BLOOD COUNT 57875 EOS % 3.0 % 2 Unknown COMPLETE BLOOD COUNT 08533 BASO % 0.4 % 2 Unknown COMPLETE BLOOD COUNT 18238 RDW 13.2 % 2 Unknown COMPLETE BLOOD COUNT 36685 ABS CINTHYA 2.78 10e9/L 012 Unknown COMPLETE BLOOD COUNT 16529 ABS LYMPH 3.06 10e9/L 012 Unknown COMPLETE BLOOD COUNT 39947 ABS MONO 0.63 10e9/L 012 Unknown COMPLETE BLOOD COUNT 22190 ABS EOS 0.20 10e9/L 012 Unknown COMPLETE BLOOD COUNT 54684 ABS BASO 0.03 10e9/L 012 Unknown COMPLETE BLOOD COUNT 22783 RDW-SD 42.3 fL 2 Unknown GFR CALC 7948140 GFR AA 57.0L ML/MIN 04/01/2011 Unknow n GFR CALC 7812145 GFR NON-AA 47.0L ML/MIN 04/01/2011 Unkno wn THYROID STIMULATING HORMONE 40544 TSH 2.663 uIU/ML 04/01/2011 Unknown FREE T4 41142 FREE T4 1.15 NG/DL 04/01/2011 Unknown THYROID STIMULATING HORMONE 56957 TSH 1.908 uIU/ML 07/06/2010 Unknown COMPLETE BLOOD COUNT 64129 WBC 6.4 10e9/L 07/07/19 11 Unknown COMPLETE BLOOD COUNT 53113 RBC 3.92 10e12/L 2010 Unknown COMPLETE BLOOD COUNT 87213 HGB 11.8 g/dL 1 Unknown COMPLETE BLOOD COUNT 23117 HCT DET 36.0 % 1 Unknown COMPLETE BLOOD COUNT 57268 MCV 91.8 fL 1 Unknown COMPLETE BLOOD COUNT 98222 MCH 30.1 pg 1 Unknown COMPLETE BLOOD COUNT 95644 MCHC 32.8 g/dL 1 Unknown COMPLETE BLOOD COUNT 50203 PLT 176 10e9/L 07/07/19 11 Unknown COMPLETE BLOOD COUNT 65071 MPV 11.4 fL 1 Unknown COMPLETE BLOOD COUNT 86619 CINTHYA % 50.4 % 1 Unknown COMPLETE BLOOD COUNT 98547 LY % 35.5 % 1 Unknown COMPLETE BLOOD COUNT 10927 MON % 10.2 % 1 Unknown COMPLETE BLOOD COUNT 08573 EOS % 3.3 % 1 Unknown COMPLETE BLOOD COUNT 34217 BASO % 0.6 % 1 Unknown COMPLETE BLOOD COUNT 51174 RDW 13.7 % 1 Unknown COMPLETE BLOOD COUNT 22070 ABS CINTHYA 3.23 10e9/L 011 Unknown COMPLETE BLOOD COUNT 43163 ABS LYMPH 2.27 10e9/L 011 Unknown COMPLETE BLOOD COUNT 64766 ABS MONO 0.65 10e9/L 011 Unknown COMPLETE BLOOD COUNT 87940 ABS EOS 0.21 10e9/L 011 Unknown COMPLETE BLOOD COUNT 04469 ABS BASO 0.04 10e9/L 011 Unknown COMPLETE BLOOD COUNT 88841 RDW-SD 45.3 fL 1 Unknown GFR CALC [id number] GFR AA >60 ML/MIN 07/06/2010 Unknown GFR CALC [id number] GFR NON-AA 53.0L ML/MIN 07/06/2010 Unkno wn FREE T4 23910 FREE T4 1.20 NG/DL 07/06/2010 Unknown COMPREHENSIVE METABOLIC 36415 AST 17 U/L 2010 Unknown COMPREHENSIVE METABOLIC 99668 ALT 9 IU/L 2010 Unknown COMPREHENSIVE METABOLIC 25878 BUN 16 MG/DL 2010 Unknown COMPREHENSIVE METABOLIC 99773 ALBUMIN 4.0 GM/DL 2010 Unknown COMPREHENSIVE METABOLIC 07090 CHLORIDE 108 MMOL/L 07/06 Unknown COMPREHENSIVE METABOLIC 13276 BILI TOT 0.5 MG/DL 2010 Unknown COMPREHENSIVE METABOLIC 18053 ALK PHOS 76 U/L 2010 Unknown COMPREHENSIVE METABOLIC 84954 SODIUM 139 MMOL/L 07/06 Unknown COMPREHENSIVE METABOLIC 96892 CREATININE 1.02 MG/DL 04/2010 Unknown COMPREHENSIVE METABOLIC 05345 CALCIUM 9.2 MG/DL 2010 Unknown COMPREHENSIVE METABOLIC 47786 POTASSIUM 4.5 MMOL/L 07/06 Unknown COMPREHENSIVE METABOLIC 59442 PROT TOT 6.1 GM/DL 2010 Unknown COMPREHENSIVE METABOLIC 01539 Glucose 93 MG/DL 2010 Unknown COMPREHENSIVE METABOLIC 99338 BICARB 26 MMOL/L 2010 Unknown COMPREHENSIVE METABOLIC 43756 ANION GAP 5 MEQ/L 2010 Unknown LIPID GROUP 96786 HDL TEST 46 MG/DL 07/06/2010 Unknown LIPID GROUP 33575 TRIG 102 MG/DL 07/06/2010 Unknown LIPID GROUP 56791 TEST LDL 88 MG/DL 07/06/2010 Unknown LIPID GROUP 14194 CHOL 154 MG/DL 07/06/2010 Unknown LIPID GROUP 42100 RCHOL/HDL 3.35 RATIO 07/06/2010 Unknow n Procedures Procedure Codes Date ROUTINE VENIPUNCTURE CPT-4: 65520 01/23/2019 LIPID PANEL CPT-4: 30951 01/23/2019 FLU VACC PRSV FREE INC ANTIG 65 AND OLDER CPT-4: 05991 12/26/2018 FLU VACC PRSV FREE INC ANTIG 65 AND OLDER CPT-4: 99861 12/26/2018 ADMIN INFLUENZA VIRUS VAC CPT-4: G0008 12/26/2018 COMPREHEN METABOLIC PANEL CPT-4: 65567 12/15/2018 ROUTINE VENIPUNCTURE CPT-4: 40617 12/15/2018 ROUTINE VENIPUNCTURE CPT-4: 96550 08/14/2018 ASSAY THYROID STIM HORMONE CPT-4: 95357 08/14/2018 COMPREHEN METABOLIC PANEL CPT-4: 51661 08/14/2018 COMPLETE CBC W/AUTO DIFF WBC CPT-4: 33581 08/14/2018 URINALYSIS NONAUTO W/O SCOPE CPT-4: 47604 05/10/2018 URINE CULTURE/ COLONY COUNT CPT-4: 87221 05/10/2018 URINE CULTURE/ COLONY COUNT CPT-4: 53437 12/06/2017 ROUTINE VENIPUNCTURE CPT-4: 20230 11/30/2017 ASSAY OF FREE THYROXINE CPT-4: 42315 11/30/2017 ASSAY THYROID STIM HORMONE CPT-4: 87395 11/30/2017 COMPLETE CBC W/AUTO DIFF WBC CPT-4: 64209 11/30/2017 METABOLIC PANEL TOTAL CA CPT-4: 96163 11/30/2017 FLU VACC PRSV FREE INC ANTIG 65 AND OLDER CPT-4: 97559 11/22/2017 ASSAY, GLUCOSE, BLOOD QUANT CPT-4: 46405 11/22/2017 ADMIN INFLUENZA VIRUS VAC CPT-4: G0008 11/22/2017 ROUTINE VENIPUNCTURE CPT-4: 07313 09/27/2017 COMPREHEN METABOLIC PANEL CPT-4: 20914 09/27/2017 COMPLETE CBC W/AUTO DIFF WBC CPT-4: 94193 09/27/2017 A1C HPLC CPT-4: 31966 09/27/2017 ASSAY OF TROPONIN QUANT CPT-4: 39834 09/27/2017 LIPID PANEL CPT-4: 70686 09/27/2017 THER/PROPH/DIAG INJ SC/IM CPT-4: 19893 05/30/2017 TRIAMCINOLONE ACET INJ NOS CPT-4: J3301 05/30/2017 URINALYSIS NONAUTO W/O SCOPE CPT-4: 88237 04/18/2017 URINE CULTURE/ COLONY COUNT CPT-4: 47863 04/18/2017 FLU VACC PRSV FREE INC ANTIG 65 AND OLDER CPT-4: 00547 12/10/2016 ADMIN INFLUENZA VIRUS VAC CPT-4: G0008 12/10/2016 ROUTINE VENIPUNCTURE CPT-4: 94873 11/01/2016 COMPREHEN METABOLIC PANEL CPT-4: 09607 11/01/2016 COMPLETE CBC W/AUTO DIFF WBC CPT-4: 87074 11/01/2016 LIPID PANEL CPT-4: 14234 11/01/2016 A1C HPLC CPT-4: 93186 11/01/2016 ASSAY THYROID STIM HORMONE CPT-4: 76189 11/01/2016 ROUTINE VENIPUNCTURE CPT-4: 91173 05/13/2016 ASSAY THYROID STIM HORMONE CPT-4: 65946 05/13/2016 COMPREHEN METABOLIC PANEL CPT-4: 51769 05/13/2016 COMPLETE CBC W/AUTO DIFF WBC CPT-4: 47166 05/13/2016 A1C HPLC CPT-4: 94947 05/13/2016 FLU VACC PRSV FREE INC ANTIG 65 AND OLDER CPT-4: 17956 12/12/2015 ADMIN INFLUENZA VIRUS VAC CPT-4: G0008 12/12/2015 ROUTINE VENIPUNCTURE CPT-4: 23144 11/25/2015 ASSAY OF FREE THYROXINE CPT-4: 22049 11/25/2015 ASSAY THYROID STIM HORMONE CPT-4: 31607 11/25/2015 COMPREHEN METABOLIC PANEL CPT-4: 55009 11/25/2015 COMPLETE CBC W/AUTO DIFF WBC CPT-4: 90069 11/25/2015 LIPID PANEL CPT-4: 78515 11/25/2015 A1C HPLC CPT-4: 73046 11/25/2015 URINALYSIS NONAUTO W/O SCOPE CPT-4: 51231 05/21/2015 ROUTINE VENIPUNCTURE CPT-4: 71717 02/19/2015 METABOLIC PANEL TOTAL CA CPT-4: 13316 02/19/2015 PRESCRIP TRANSMIT VIA ERX SY CPT-4: G8553 02/19/2015 FLU VACC PRSV FREE INC ANTIG 65 AND OLDER CPT-4: 76787 12/20/2014 ADMIN INFLUENZA VIRUS VAC CPT-4: G0008 12/20/2014 URINALYSIS NONAUTO W/O SCOPE CPT-4: 74314 11/19/2014 URINE CULTURE/ COLONY COUNT CPT-4: 79925 11/19/2014 ROUTINE VENIPUNCTURE CPT-4: 24297 11/14/2014 ASSAY OF FREE THYROXINE CPT-4: 41987 11/14/2014 ASSAY THYROID STIM HORMONE CPT-4: 14541 11/14/2014 COMPREHEN METABOLIC PANEL CPT-4: 62069 11/14/2014 COMPLETE CBC W/AUTO DIFF WBC CPT-4: 69691 11/14/2014 LIPID PANEL CPT-4: 02506 11/14/2014 A1C HPLC CPT-4: 71972 11/14/2014 CERUM REMOVAL CPT-4: 03491 09/27/2014 PRESCRIP TRANSMIT VIA ERX SY CPT-4: G8553 07/11/2014 FLUZONE, 5ML (Medicare) CPT-4: Q2038 12/21/2013 ADMIN INFLUENZA VIRUS VAC CPT-4: G0008 12/21/2013 PRESCRIP TRANSMIT VIA ERX SY CPT-4: G8553 10/17/2013 PRESCRIP TRANSMIT VIA ERX SY CPT-4: G8553 09/24/2013 PRESCRIP TRANSMIT VIA ERX SY CPT-4: G8553 05/31/2013 ROUTINE VENIPUNCTURE CPT-4: 34935 03/28/2013 ASSAY OF FREE THYROXINE CPT-4: 31949 03/28/2013 ASSAY THYROID STIM HORMONE CPT-4: 06951 03/28/2013 COMPREHEN METABOLIC PANEL CPT-4: 99198 03/28/2013 COMPLETE CBC W/AUTO DIFF WBC CPT-4: 26655 03/28/2013 LIPID PANEL CPT-4: 70187 03/28/2013 A1C HPLC CPT-4: 59967 03/28/2013 VITAMIN B 12 FOLIC ACID CPT-4: 66712|42269 03/28/2013 PRESCRIP TRANSMIT VIA ERX SY CPT-4: G8553 03/26/2013 PRESCRIP TRANSMIT VIA ERX SY CPT-4: G8553 12/19/2012 FLUZONE, 5ML (Medicare) CPT-4: Q2038 11/27/2012 ADMIN INFLUENZA VIRUS VAC CPT-4: G0008 11/27/2012 PRESCRIP TRANSMIT VIA ERX SY CPT-4: G8553 10/04/2012 PRESCRIP TRANSMIT VIA ERX SY CPT-4: G8553 07/14/2012 ROUTINE VENIPUNCTURE CPT-4: 01458 02/23/2012 ASSAY OF FREE THYROXINE CPT-4: 71400 02/23/2012 ASSAY THYROID STIM HORMONE CPT-4: 98702 02/23/2012 COMPREHEN METABOLIC PANEL CPT-4: 17168 02/23/2012 COMPLETE CBC W/AUTO DIFF WBC CPT-4: 83917 02/23/2012 LIPID PANEL CPT-4: 95428 02/23/2012 A1C GLYCOSYLATED HEMOGLOBIN TEST CPT-4: 70427 012 CERUM REMOVAL CPT-4: 03623 02/22/2012 PRESCRIP TRANSMIT VIA ERX SY CPT-4: G8553 02/22/2012 PRESCRIP TRANSMIT VIA ERX SY CPT-4: G8553 12/15/2011 FLUZONE, 5ML (Medicare) CPT-4: Q2038 12/02/2011 ADMIN INFLUENZA VIRUS VAC CPT-4: G0008 12/02/2011 ASSAY, GLUCOSE, BLOOD QUANT CPT-4: 20574 09/21/2011 URINALYSIS NONAUTO W/O SCOPE CPT-4: 92387 09/16/2011 URINE CULTURE/ COLONY COUNT CPT-4: 32234 09/16/2011 ROUTINE VENIPUNCTURE CPT-4: 42532 09/15/2011 ASSAY OF FREE THYROXINE CPT-4: 08061 09/15/2011 ASSAY THYROID STIM HORMONE CPT-4: 86229 09/15/2011 COMPREHEN METABOLIC PANEL CPT-4: 42383 09/15/2011 COMPLETE CBC W/AUTO DIFF WBC CPT-4: 40173 09/15/2011 LIPID PANEL CPT-4: 50787 09/15/2011 ASSAY OF INSULIN CPT-4: 24251 09/15/2011 A1C GLYCOSYLATED HEMOGLOBIN TEST CPT-4: 47659 012 DRAIN/INJECT JOINT/BURSA CPT-4: 19413 08/16/2011 METHYLPREDNISOLONE 40 MG INJ CPT-4: J1030 08/16/2011 TRIAMCINOLONE ACET INJ NOS CPT-4: J3301 08/16/2011 PRESCRIP TRANSMIT VIA ERX SY CPT-4: G8553 08/03/2011 PRESCRIP TRANSMIT VIA ERX SY CPT-4: G8553 07/26/2011 METHYLPREDNISOLONE 40 MG INJ CPT-4: J1030 06/28/2011 DRAIN/INJECT JOINT/BURSA CPT-4: 10350 06/28/2011 TRIAMCINOLONE ACET INJ NOS CPT-4: J3301 06/28/2011 PRESCRIP TRANSMIT VIA ERX SY CPT-4: G8553 06/28/2011 ROUTINE VENIPUNCTURE CPT-4: 70592 04/01/2011 ASSAY OF FREE THYROXINE CPT-4: 78099 04/01/2011 ASSAY THYROID STIM HORMONE CPT-4: 03907 04/01/2011 COMPREHEN METABOLIC PANEL CPT-4: 59472 04/01/2011 COMPLETE CBC W/AUTO DIFF WBC CPT-4: 94888 04/01/2011 LIPID PANEL CPT-4: 47717 04/01/2011 PRESCRIP TRANSMIT VIA ERX SY CPT-4: G8553 03/31/2011 CERUM REMOVAL CPT-4: 58839 02/11/2011 PRESCRIP TRANSMIT VIA ERX SY CPT-4: G8553 02/11/2011 FLUZONE, 5ML (Medicare) CPT-4: Q2038 12/09/2010 ADMIN INFLUENZA VIRUS VAC CPT-4: G0008 12/09/2010 PRESCRIP TRANSMIT VIA ERX SY CPT-4: G8553 10/15/2010 URINALYSIS NONAUTO W/O SCOPE CPT-4: 16803 09/29/2010 URINE CULTURE/ COLONY COUNT CPT-4: 21150 09/29/2010 CUR TOBACCO NON-USER CPT-4: G8457 09/29/2010 ROUTINE VENIPUNCTURE CPT-4: 60358 07/06/2010 COMPLETE CBC W/AUTO DIFF WBC CPT-4: 82840 07/06/2010 COMPREHEN METABOLIC PANEL CPT-4: 52048 07/06/2010 LIPID PANEL CPT-4: 39134 07/06/2010 ASSAY THYROID STIM HORMONE CPT-4: 51258 07/06/2010 ASSAY OF FREE THYROXINE CPT-4: 37193 07/06/2010 PRESCRIP TRANSMIT VIA ERX SY CPT-4: G8553 07/02/2010 INJ TRIGGER POINT 1/2 MUSCL CPT-4: 69422 04/06/2010 TRIAMCINOLONE ACET INJ NOS CPT-4: J3301 04/06/2010 METHYLPREDNISOLONE 40 MG INJ CPT-4: J1030 04/06/2010 THER/PROPH/DIAG INJ SC/IM CPT-4: 06891 04/01/2010 KETOROLAC TROMETHAMINE INJ CPT-4: J1885 04/01/2010 PRESCRIP TRANSMIT VIA ERX SY CPT-4: G8553 01/22/2010 FLU VACCINE 3 YRS & > IM UP 64 CPT-4: 92765 0 ADMIN INFLUENZA VIRUS VAC CPT-4: G0008 12/10/2009 URINALYSIS NONAUTO W/O SCOPE CPT-4: 09238 12/02/2009 URINE CULTURE/ COLONY COUNT CPT-4: 73157 12/02/2009 PRESCRIP TRANSMIT VIA ERX SY CPT-4: G8553 12/02/2009 THER/PROPH/DIAG INJ SC/IM CPT-4: 99346 09/10/2009 VITAMIN B12 INJECTION CPT-4: J3420 09/10/2009 THER/PROPH/DIAG INJ SC/IM CPT-4: 95999 08/11/2009 VITAMIN B12 INJECTION CPT-4: J3420 08/11/2009 ROUTINE VENIPUNCTURE CPT-4: 84827 06/10/2009 Vital Signs Date Vital 03/13/2019 Blood [...] 1: 142/60 Code: 8480-6 BMI: 38.2 Code: 96145-5 Heart Rate 1: 48 bpm Height: 5'2" Respiratory Rate: 20 bpm SpO2: 98% Tempera ture: 36.7 (C) / 98.1 (F) Weight: 212 lbs 01/10/2018 Blood Pressure 1: 142/64 Code: 8480-6 BMI: 38.5 Code: 59850-5 Heart Rate 1: 52 bpm Height: 5'2" Respiratory Rate: 22 bpm SpO2: 96% Tempera ture: 36.1 (C) / 96.9 (F) Weight: 214 lbs 12/06/2017 Blood Pressure 1: 124/80 Code: 8480-6 BMI: 38.3 Code: 31637-5 Heart Rate 1: 68 bpm Height: 5'2" Respiratory Rate: 20 bpm Temperature: 36 .3 (C) / 97.4 (F) Weight: 213 lbs 11/22/2017 Blood Pressure 1: 132/78 Code: 8480-6 BMI: 37.6 Code: 81199-9 Heart Rate 1: 68 bpm Height: 5'2" Respiratory Rate: 20 bpm SpO2: 97% Tempera ture: 36.8 (C) / 98.2 (F) Weight: 209 lbs 10/20/2017 Blood Pressure 1: 150/76 Code: 8480-6 BMI: 38.5 Code: 31610-3 Heart Rate 1: 64 bpm Height: 5'2" Respiratory Rate: 20 bpm SpO2: 97% Tempera ture: 36.2 (C) / 97.2 (F) Weight: 214 lbs 09/27/2017 Blood Pressure 1: 122/74 Code: 8480-6 BMI: 38.2 Code: 45523-9 Heart Rate 1: 64 bpm Height: 5'2" Respiratory Rate: 18 bpm SpO2: 96% Tempera ture: 35.8 (C) / 96.4 (F) Weight: 212 lbs 08/16/2017 Blood Pressure 1: 124/78 Code: 8480-6 BMI: 37.8 Code: 33993-4 Heart Rate 1: 76 bpm Height: 5'2" Respiratory Rate: 20 bpm Temperature: 36 .8 (C) / 98.3 (F) Weight: 210 lbs 07/07/2017 Blood Pressure 1: 136/70 Code: 8480-6 BMI: 38.0 Code: 26964-4 Heart Rate 1: 68 bpm Height: 5'2" Respiratory Rate: 20 bpm SpO2: 97% Tempera ture: 36.8 (C) / 98.2 (F) Weight: 211 lbs 05/30/2017 Blood Pressure 1: 140/65 Code: 8480-6 Heart Rate 1: 75 bpm Respiratory Rate: 24 bpm SpO2: 95% Temperature: 37.0 (C) / 98.6 (F) We ight: 211 lbs 04/18/2017 Blood Pressure 1: 154/70 Code: 8480-6 BMI: 37.6 Code: 12237-3 Heart Rate 1: 76 bpm Height: 5'2" Respiratory Rate: 20 bpm SpO2: 98% Tempera ture: 36.9 (C) / 98.5 (F) Weight: 209 lbs 10/25/2016 Blood Pressure 1: 156/70 Code: 8480-6 BMI: 37.1 Code: 70954-5 Heart Rate 1: 72 bpm Height: 5'2" Respiratory Rate: 20 bpm SpO2: 97% Tempera ture: 37.0 (C) / 98.6 (F) Weight: 206 lbs 09/20/2016 Blood Pressure 1: 152/78 Code: 8480-6 BMI: 36.8 Code: 64484-5 Heart Rate 1: 78 bpm Height: 5'2" Respiratory Rate: 20 bpm SpO2: 98% Tempera ture: 36.1 (C) / 97.0 (F) Weight: 204 lbs 05/12/2016 Blood Pressure 1: 142/70 Code: 8480-6 BMI: 36.9 Code: 41657-7 Heart Rate 1: 64 bpm Height: 5'2" [...] 1: 122/64 Code: 8480-6 BMI: 39.1 Code: 60570-7 Heart Rate 1: 76 bpm Height: 5'2" Respiratory Rate: 20 bpm Temperature: 36 .8 (C) / 98.2 (F) Weight: 217 lbs 05/21/2015 Blood Pressure 1: 144/70 Code: 8480-6 BMI: 39.4 Code: 73272-2 Heart Rate 1: 76 bpm Height: 5'2" Respiratory Rate: 20 bpm Temperature: 36 .6 (C) / 97.9 (F) Weight: 219 lbs 02/19/2015 Blood Pressure 1: 152/60 Code: 8480-6 BMI: 39.6 Code: 68294-6 Heart Rate 1: 84 bpm Height: 5'2" Respiratory Rate: 20 bpm Temperature: 37 .0 (C) / 98.6 (F) Weight: 220 lbs 11/13/2014 Blood Pressure 1: 146/76 Code: 8480-6 BMI: 39.8 Code: 97726-8 Heart Rate 1: 88 bpm Height: 5'2" Respiratory Rate: 20 bpm Temperature: 37 .0 (C) / 98.6 (F) Weight: 221 lbs 09/27/2014 Blood Pressure 1: 132/70 Code: 8480-6 BMI: 39.1 Code: 63088-2 Heart Rate 1: 88 bpm Height: 5'2" Respiratory Rate: 20 bpm Temperature: 36 .4 (C) / 97.6 (F) Weight: 217 lbs 07/11/2014 Blood Pressure 1: 132/66 Code: 8480-6 BMI: 39.9 Code: 46051-5 Heart Rate 1: 72 bpm Height: 5'2" Respiratory Rate: 20 bpm Temperature: 36 .9 (C) / 98.4 (F) Weight: 218 lbs 05/23/2014 Blood Pressure 1: 136/80 Code: 8480-6 Heart Rate 1: 76 bpm Respiratory Rate: 20 bpm Temperature: 36.7 (C) / 98.0 (F) Weight: 224 lbs 03/20/2014 Blood Pressure 1: 134/78 Code: 8480-6 BMI: 39.7 Code: 09534-4 Heart Rate 1: 84 bpm Height: 5'2" Respiratory Rate: 20 bpm Temperature: 36 .7 (C) / 98.0 (F) Weight: 217 lbs 10/17/2013 Blood Pressure 1: 146/78 Code: 8480-6 BMI: 39.5 Code: 09658-4 Heart Rate 1: 82 bpm Height: 5'2" Respiratory Rate: 18 bpm Temperature: 35 .6 (C) / 96.1 (F) Weight: 216 lbs 09/24/2013 Blood Pressure 1: 134/70 Code: 8480-6 BMI: 37.9 Code: 84398-2 Heart Rate 1: 80 bpm Height: 5'3" Respiratory Rate: 20 bpm Temperature: 36 .8 (C) / 98.2 (F) Weight: 214 lbs 05/31/2013 Blood Pressure 1: 132/70 Code: 8480-6 BMI: 37.6 Code: 78560-9 Heart Rate 1: 80 bpm Height: 5'3" Respiratory Rate: 20 bpm Temperature: 36 .8 (C) / 98.3 (F) Weight: 212 lbs 03/26/2013 Blood Pressure 1: 116/74 Code: 8480-6 Heart Rate 1: 68 bpm Respiratory Rate: 20 bpm Temperature: 36.2 (C) / 97.1 (F) Weight: 212 lbs 12/19/2012 Blood Pressure 1: 132/82 Code: 8480-6 BMI: 37.4 Code: 55775-9 Heart Rate 1: 76 bpm Height: 5'3" Respiratory Rate: 20 bpm Temperature: 36 .7 (C) / 98.0 (F) Weight: 211 lbs 12/04/2012 Blood Pressure 1: 130/76 Code: 8480-6 He art Rate 1: 78 bpm 11/27/2012 Blood Pressure 1: 140/82 Code: 8480-6 BMI: 36.8 Code: 45160-9 Heart Rate 1: 66 bpm Height: 5'3" Respiratory Rate: 20 bpm Temperature: 36 .1 (C) / 96.9 (F) Weight: 208 lbs 10/04/2012 Blood Pressure 1: 138/80 Code: 8480-6 BMI: 36.4 Code: 11746-4 Heart Rate 1: 72 bpm Height: 5'4" Respiratory Rate: 20 bpm Temperature: 36 .7 (C) / 98.0 (F) Weight: 212 lbs 07/27/2012 Blood Pressure 1: 124/70 Code: 8480-6 BMI: 36.9 Code: 50571-5 Heart Rate 1: 60 bpm Height: 5'4" Temperature: 36.1 (C) / 97.0 (F) Weight: 215 lbs 07/14/2012 Blood Pressure 1: 132/86 Code: 8480-6 BMI: 36.9 Code: 73009-6 Heart Rate 1: 76 bpm Height: 5'4" Respiratory Rate: 20 bpm Temperature: 36 .8 (C) / 98.2 (F) Weight: 215 lbs 06/08/2012 Blood Pressure 1: 134/82 Code: 8480-6 BMI: 36.6 Code: 23595-0 Heart Rate 1: 72 bpm Height: 5'4" Respiratory Rate: 20 bpm Temperature: 36 .3 (C) / 97.4 (F) Weight: 213 lbs 02/22/2012 Blood Pressure 1: 142/80 Code: 8480-6 BMI: 37.1 Code: 95410-7 Heart Rate 1: 76 bpm Height: 5'4" Respiratory Rate: 20 bpm Temperature: 36 .8 (C) / 98.3 (F) Weight: 216 lbs 12/28/2011 Blood Pressure 1: 128/68 Code: 8480-6 BMI: 37.6 Code: 22503-0 Heart Rate 1: 72 bpm Height: 5'4" [...] 1: 128/78 Code: 8480-6 BMI: 38.1 Code: 78177-3 Heart Rate 1: 84 bpm Height: 5'4" Respiratory Rate: 20 bpm Temperature: 36 .9 (C) / 98.4 (F) Weight: 222 lbs 08/16/2011 Blood Pressure 1: 138/80 Code: 8480-6 BMI: 37.9 Code: 70491-6 Heart Rate 1: 74 bpm Height: 5'4" Temperature: 36.1 (C) / 97.0 (F) Weight: 221 lbs 08/03/2011 Blood Pressure 1: 126/78 Code: 8480-6 BMI: 38.4 Code: 89387-2 Heart Rate 1: 72 bpm Height: 5'4" Respiratory Rate: 20 bpm Temperature: 36 .7 (C) / 98.0 (F) Weight: 224 lbs 07/26/2011 Blood Pressure 1: 138/72 Code: 8480-6 BMI: 38.4 Code: 24403-4 Heart Rate 1: 72 bpm Height: 5'4" Respiratory Rate: 20 bpm Temperature: 36 .6 (C) / 97.9 (F) Weight: 224 lbs 06/28/2011 Blood Pressure 1: 122/78 Code: 8480-6 BMI: 38.8 Code: 58380-2 Heart Rate 1: 88 bpm Height: 5'4" Respiratory Rate: 20 bpm Temperature: 36 .6 (C) / 97.8 (F) Weight: 226 lbs 03/31/2011 Blood Pressure 1: 116/60 Code: 8480-6 BMI: 38.1 Code: 70751-9 Heart Rate 1: 92 bpm Height: 5'4" Respiratory Rate: 20 bpm Temperature: 36 .8 (C) / 98.2 (F) Weight: 222 lbs 02/11/2011 Blood Pressure 1: 118/62 Code: 8480-6 BMI: 37.9 Code: 66098-7 Heart Rate 1: 80 bpm Height: 5'4" Temperature: 36.5 (C) / 97.7 (F) Weight: 221 lbs 10/15/2010 Blood Pressure 1: 132/70 Code: 8480-6 Heart Rate 1: 84 bpm Respiratory Rate: 20 bpm Temperature: 36.7 (C) / 98.0 (F) Weight: 221 lbs 09/29/2010 Blood Pressure 1: 114/72 Code: 8480-6 BMI: 37.6 Code: 65608-7 Heart Rate 1: 76 bpm Height: 5'4" [...] 1: 120/70 Code: 8480-6 BMI: 38.3 Code: 95662-7 Heart Rate 1: 88 bpm Height: 5'5" [...] but had more that day. While at [employer] began to feel very ill and became [...] 09/27/2014 pain, limb 07/11/2014 follow up 05/23/2014 [facility] fwup high blood pressure 03/20/2014 injection(s) [...] Diagnosis: Mixed hyperlipidemia[ICD10: E78.2] Vikki CIDER DO [facility] CPT-4: 08081 01/23/2019 ([id number]) NURSE/OUTPATIENT VISIT EST Diagnosis: FLU VACCINE[ICD10: Z23] Vikki PIKE SSujata PECKND ER DO [facility] CPT-4: 98057 12/26/2018 ([id number]) NURSE/OUTPATIENT VISIT EST Diagnosis: Chronic kidney disease, stage 1[ICD10: N18.1] Vikki CIDER DO [facility] CPT-4: 28263 12/15/2018 ([id number]) OFFICE/OUTPATIENT VISIT EST Diagnosis: Acute serous otitis media, left ear[ICD10: H65.02] Jennifer GUAMAN [facility] CPT-4: 72440 11/07/2018 ([id number]) OFFICE/OUTPATIENT VISIT EST Diagnosis: Essential (primary) hypertension[ICD10: I10] Diagnosis: 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] Diagnosis: Hypoglycemia, unspecified[ICD10: E16.2] Diagnosis: Other fatigue[ICD10: R53.83] Diagnosis: Urinary tract infection, site not specified[ICD10: N39.0] Vikki GUAMAN [facility] CPT-4: 40273 08/14/2018 ([id number]) OFFICE/OUTPATIENT VISIT EST Diagnosis: Essential (primary) hypertension[ICD10: I10] Diagnosis: Gastro-esophageal reflux disease without esophagitis[ICD10: K21.9] Diagnosis: Urinary tract infection, site not specified[ICD10: N39.0] Vikki GUAMAN [facility] CPT-4: 46655 05/10/2018 ([id number]) OFFICE/OUTPATIENT VISIT EST Diagnosis: Gastro-esophageal reflux disease without esophagitis[ICD10: K21.9] Diagnosis: Epigastric pain[ICD10: R10.13] Vikki GUAMAN [facility] CPT-4: 40593 02/14/2018 ([id number]) OFFICE/OUTPATIENT VISIT EST Diagnosis: 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] Diagnosis: Essential (primary) hypertension[ICD10: I10] Diagnosis: Generalized anxiety disorder[ICD10: F41.1] Diagnosis: Gastro-esophageal reflux disease without esophagitis[ICD10: K21.9] Vikki GUAMAN [facility] CPT-4: 81983 01/10/2018 OFFICE/OUTPATIENT VISIT EST Diagnosis: Gastro-esophageal reflux disease without esophagitis[ICD10: K21.9] Diagnosis: Palpitations[ICD10: R00.2] Diagnosis: Urinary tract infection, site not specified[ICD10: N39.0] Diagnosis: Generalized anxiety disorder[ICD10: F41.1] Vikki GUAMAN [facility] CPT-4: 75328 12/06/2017 ([id number]) NURSE/OUTPATIENT VISIT EST Diagnosis: 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] Diagnosis: Hypoglycemia, unspecified[ICD10: E16.2] Diagnosis: Dizziness and giddiness[ICD10: R42] Diagnosis: Occlusion and stenosis of bilateral carotid arteries[ICD10: I65.23] Vikki GUAMAN [facility] CPT-4: 00068 11/30/2017 OFFICE/OUTPATIENT VISIT EST Diagnosis: Epigastric pain[ICD10: R10.13] Diagnosis: Generalized anxiety disorder[ICD10: F41.1] Diagnosis: FLU VACCINE[ICD10: Z23] Vikki BALL [facility] CPT-4: 38962 11/22/2017 ([id number]) OFFICE/OUTPATIENT VISIT EST Diagnosis: Essential (primary) hypertension[ICD10: I10] Diagnosis: Hypoglycemia, unspecified[ICD10: E16.2] Diagnosis: Gastro-esophageal reflux disease without esophagitis[ICD10: K21.9] Vikki GUAMAN [facility] CPT-4: 64016 10/20/2017 ([id number]) OFFICE/OUTPATIENT VISIT EST Diagnosis: Dizziness and giddiness[ICD10: R42] Jennifer GUAMAN [facility] CPT-4: 53152 09/27/2017 ([id number]) OFFICE/OUTPATIENT VISIT EST Diagnosis: Cervicalgia[ICD10: M54.2] Diagnosis: Other spondylosis with radiculopathy, cervical region[ICD10: M47.22] Vikki GUAMAN [facility] CPT-4: 67698 08/16/2017 ([id number]) OFFICE/OUTPATIENT VISIT EST Diagnosis: Hypoglycemia, unspecified[ICD10: E16.2] Diagnosis: Other spondylosis with radiculopathy, cervical region[ICD10: M47.22] Diagnosis: Vertigo of central origin, 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] Diagnosis: 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] Vikki KEARNEYAKUA RobertsSujata DENIZ [facility] CPT-4: 18492 07/07/2017 ([id number]) OFFICE/OUTPATIENT VISIT EST Diagnosis: Benign paroxysmal vertigo, bilateral[ICD10: H81.13] Diagnosis: Otalgia, bilateral[ICD10: H92.03] Jennifer Rosario ROMMELJEANNA RobertsSujata DENIZ [facility] CPT-4: 00416 05/30/2017 ([id number]) OFFICE/OUTPATIENT VISIT EST Diagnosis: Low back pain[ICD10: M54.5] Diagnosis: Radiculopathy, lumbosacral region[ICD10: M54.17] Diagnosis: Left lower quadrant pain[ICD10: R10.32] Vikki CRISOSTOMO [facility] CPT-[facility]: 77580 04/18/2017 ([id number]) OFFICE/OUTPATIENT VISIT EST Diagnosis: FLU VACCINE[ICD10: Z23] Vikki PIKE AlejandraSujata [facility] CPT-4: 56284 12/10/2016 ([id number]) OFFICE/OUTPATIENT VISIT EST Diagnosis: Mixed hyperlipidemia[ICD10: E78.2] Diagnosis: Essential (primary) hypertension[ICD10: I10] Diagnosis: 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] Diagnosis: Impaired fasting glucose[ICD10: R73.01] Diagnosis: Other fatigue[ICD10: R53.83] Vikki PIKE AlejandraSujata DENIZ [facility] CPT-4: 94511 11/01/2016 ([id number]) OFFICE/OUTPATIENT VISIT EST Diagnosis: Pain in thoracic spine[ICD10: M54.6] Diagnosis: Other intervertebral disc degeneration, 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] Vikki Shah [facility] CPT-4: 76943 10/25/2016 ([id number]) OFFICE/OUTPATIENT VISIT EST Diagnosis: Left lower quadrant pain[ICD10: R10.32] Diagnosis: Low back pain[ICD10: M54.5] Vikki RUBI [facility] CPT-4: 10244 09/20/2016 ([id number]) OFFICE/OUTPATIENT VISIT EST Diagnosis: Mixed hyperlipidemia[ICD10: E78.2] Diagnosis: Essential (primary) hypertension[ICD10: I10] Diagnosis: Hypoglycemia, unspecified[ICD10: E16.2] Vikki Deniz GUAMAN [facility] CPT-4: 76188 05/13/2016 ([id number]) OFFICE/OUTPATIENT VISIT EST Diagnosis: Impaired fasting glucose[ICD10: R73.01] Diagnosis: Mastodynia[ICD10: N64.4] Diagnosis: Mixed hyperlipidemia[ICD10: E78.2] Diagnosis: Essential (primary) hypertension[ICD10: I10] Diagnosis: Other fatigue[ICD10: R53.83] Vikkikranthi Guaman VIKKI AlejandraSujata [facility]IZ [facility] CPT-4: 75546 05/12/2016 ([id number]) OFFICE/OUTPATIENT VISIT EST Diagnosis: Acute upper respiratory infection, unspecified[ICD10: J06.9] Yue KEARNEYQUELINE AlejandraSujata [facility]IZ [facility] CPT-4: 02575 03/18/2016 ([id number]) OFFICE/OUTPATIENT VISIT EST Diagnosis: Acute mastoiditis without complications, right ear[ICD10: H70.001] Vikki Ciscofunmilayosakshi CORTEZVIKKI AlejandraSujata [facility]IZ [facility] CPT-4: 00174 02/06/2016 ([id number]) OFFICE/OUTPATIENT VISIT EST Diagnosis: FLU VACCINE[ICD10: Z23] Vikki Ciscofunmilayosakshi CORTEZVIKKI Alyssa BALL [facility] CPT-4: 28330 12/12/2015 ([id number]) OFFICE/OUTPATIENT VISIT EST Diagnosis: Mixed hyperlipidemia[ICD10: E78.2] Diagnosis: Essential (primary) hypertension[ICD10: I10] Diagnosis: 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] Diagnosis: Impaired fasting glucose[ICD10: R73.01] Vikki KEARNEY CHILANGOLUTHER AlejandraSujata DENIZ [facility] CPT-4: 66123 11/25/2015 ([id number]) OFFICE/OUTPATIENT VISIT EST Diagnosis: Constipation, unspecified[ICD10: K59.00] Vikki PIKE AlejandraSujata [facility]IZ [facility] CPT-4: 03255 08/26/2015 ([id number]) OFFICE/OUTPATIENT VISIT EST Diagnosis: Essential (primary) hypertension[ICD10: I10] Diagnosis: Mixed hyperlipidemia[ICD10: E78.2] Diagnosis: Chronic kidney disease, stage 1[ICD10: N18.1] Vikki GUAMAN [facility] CPT-4: 53766 05/21/2015 ([id number]) OFFICE/OUTPATIENT VISIT EST Diagnosis: Muscle weakness (generalized)[ICD10: M62.81] Diagnosis: Dizziness and giddiness[ICD10: R42] Diagnosis: Essential (primary) hypertension[ICD10: I10] Diagnosis: History of falling[ICD10: Z91.81] Vikki GUAMAN [facility] CPT-4: 93816 02/19/2015 ([id number]) OFFICE/OUTPATIENT VISIT EST Diagnosis: FLU VACCINE[ICD10: Z23] Vikki BALL [facility] CPT-4: 65612 12/20/2014 ([id number]) OFFICE/OUTPATIENT VISIT EST Diagnosis: Acute renal failure[ICD9: 584.9] Diagnosis: POLYURIA[ICD9: 788.42] Vikki Rees [facility] CPT-4: 89423 11/19/2014 ([id number]) OFFICE/OUTPATIENT VISIT EST Diagnosis: HYPERLIPIDEMIA NEC/NOS[ICD9: 272.4] Diagnosis: HYPERTENSION[ICD9: 401.9] Diagnosis: CAD[ICD9: 414.00] Diagnosis: Hyperglycemia[ICD9: 790.29] Diagnosis: MALAISE AND FATIGUE[ICD9: 780.79] Vikki GUAMAN [facility] CPT-4: 61235 11/14/2014 ([id number]) OFFICE/OUTPATIENT VISIT EST Diagnosis: MALAISE AND FATIGUE[ICD9: 780.79] Diagnosis: HYPOGLYCEMIA[ICD9: 251.2] Diagnosis: Grieving[ICD9: 309.0] Diagnosis: ABDOMINAL PAIN[ICD9: 789.00] Vikki GUAMAN [facility] CPT-4: 04149 11/13/2014 OFFICE/OUTPATIENT VISIT EST Diagnosis: CERUMEN IMPACTION[ICD9: 380.4] Diagnosis: EUSTACHIAN TUBE DYSFUNCTION[ICD9: 381.81] Jessenia GUAMAN [facility] CPT-4: 57976 09/27/2014 ([id number]) OFFICE/OUTPATIENT VISIT EST Diagnosis: Leg pain[ICD9: 729.5] Diagnosis: SUPERFIC PHLEBITIS-LEG[ICD9: 451.0] Vikki GUAMAN [facility] CPT-4: 67939 07/11/2014 ([id number]) OFFICE/OUTPATIENT VISIT EST Diagnosis: Thoracic back pain[ICD9: 724.1] Diagnosis: SPASM OF MUSCLE[ICD9: 728.85] Vikki GUAMAN [facility] CPT-4: 15654 05/23/2014 ([id number]) OFFICE/OUTPATIENT VISIT EST Diagnosis: DIZZINESS/VERTIGO[ICD9: 780.4] Diagnosis: Benign positional vertigo[ICD9: 386.11] Diagnosis: HYPERTENSION[ICD9: 401.9] Diagnosis: Suspicious nevus[ICD9: 238.2] Vikki GUAMAN [facility] CPT-4: 59179 03/20/2014 ([id number]) OFFICE/OUTPATIENT VISIT EST Diagnosis: FLU VACCINE[ICD10: Z23] Vikki CID [facility] CPT-4: 77515 12/21/2013 OFFICE/OUTPATIENT VISIT EST Diagnosis: SINUSITIS, ACUTE[ICD9: 461.9] Diagnosis: EUSTACHIAN TUBE DYSFUNCTION[ICD9: 381.81] Jessenia GUAMAN [facility] CPT-4: 32302 10/17/2013 ([id number]) OFFICE/OUTPATIENT VISIT EST Diagnosis: DIZZINESS/VERTIGO[ICD9: 780.4] Diagnosis: HYPERTENSION[ICD9: 401.9] Vikki MARTINEZ [facility] CPT-4: 69848 09/24/2013 ([id number]) OFFICE/OUTPATIENT VISIT EST Diagnosis: HYPERTENSION[ICD9: 401.9] Diagnosis: MALAISE AND FATIGUE[ICD9: 780.79] Diagnosis: SINUSITIS, ACUTE[ICD9: 461.9] Vikki GUAMAN [facility] CPT-4: 83768 05/31/2013 ([id number]) OFFICE/OUTPATIENT VISIT EST Diagnosis: HYPERLIPIDEMIA NEC/NOS[ICD9: 272.4] Diagnosis: HYPERTENSION[ICD9: 401.9] Diagnosis: B12 DEFIC ANEMIA NEC[ICD9: 281.1] Diagnosis: HYPOGLYCEMIA[ICD9: 251.2] Vikki Deniz MARTINEZ [facility] CPT-4: 22820 03/28/2013 OFFICE/OUTPATIENT VISIT EST Diagnosis: COUGH[ICD9: 786.2] Jessenia GUAMAN [facility] CPT-4: 68595 03/26/2013 OFFICE/OUTPATIENT VISIT EST Diagnosis: COUGH[ICD9: 786.2] Diagnosis: URI, ACUTE[ICD9: 465.9] Jessenia BALL [facility] CPT-4: 92511 12/19/2012 ([id number]) OFFICE/OUTPATIENT VISIT EST Diagnosis: HYPERTENSION[ICD9: 401.9] Diagnosis: CEPHALGIA[ICD9: 784.0] Diagnosis: ANXIETY STATE NOS[ICD9: 300.00] Diagnosis: FLU VACCINE[ICD9: V04.81] [facility]: 06808 11/27/2012 ([id number]) OFFICE/OUTPATIENT VISIT EST Diagnosis: DIZZINESS/VERTIGO[ICD9: 780.4] Diagnosis: SINUSITIS, ACUTE[ICD9: 461.9] Diagnosis: Benign positional vertigo[ICD9: 386.11] Vikkiluther Guaman CAIO KEELUTHER Alyssa GUAMAN [facility] CPT-4: 33868 10/04/2012 OFFICE/OUTPATIENT VISIT EST Diagnosis: OTITIS MEDIA NOS[ICD9: 382.9] Vikki Ciscofunmilayosakshi GUAMAN [facility] CPT-4: 63126 07/27/2012 OFFICE/OUTPATIENT VISIT EST Diagnosis: Perforation of ear drum[ICD9: 384.20] Diagnosis: SINUSITIS, ACUTE[ICD9: 461.9] Vikki Guaman VIKKI [facility]a [facility]: 95903 07/14/2012 ([id number]) OFFICE/OUTPATIENT VISIT EST Diagnosis: Mastalgia[ICD9: 611.71] Vikki BALL [facility] CPT-4: 21281 06/08/2012 ([id number]) OFFICE/OUTPATIENT VISIT EST Diagnosis: HYPERLIPIDEMIA NEC/NOS[ICD9: 272.4] Diagnosis: HYPERTENSION[ICD9: 401.9] Diagnosis: DIZZINESS/VERTIGO[ICD9: 780.4] Diagnosis: Hyperglycemia[ICD9: 790.29] Diagnosis: MALAISE AND FATIGUE[ICD9: 780.79] Vikki Peckbhavya ROMMEL E SSujata DENIZ [facility] CPT-4: 76639 02/23/2012 ([id number]) OFFICE/OUTPATIENT VISIT EST Diagnosis: EUSTACHIAN TUBE DYSFUNCTION[ICD9: 381.81] Diagnosis: DIZZINESS/VERTIGO[ICD9: 780.4] Diagnosis: ABDOMINAL PAIN[ICD9: 789.00] Diagnosis: GERD[ICD9: 530.81] Diagnosis: CERUMEN IMPACTION[ICD9: 380.4] Vikki Peckfunmilayosakshi CORTEZVIKKI Alejandra Sujata DNEIZ [facility] CPT-4: 51185 02/22/2012 OFFICE/OUTPATIENT VISIT EST Diagnosis: ABDOMINAL PAIN[ICD9: 789.00] Diagnosis: DYSPEPSIA[ICD9: 536.8] Vikki CORTEZLINE AlejandraSujata MATY Negrita [facility] CPT-4: 30505 12/28/2011 ([id number]) OFFICE/OUTPATIENT VISIT EST Diagnosis: ABDOMINAL PAIN[ICD9: 789.00] Diagnosis: DYSPEPSIA[ICD9: 536.8] Diagnosis: IBS[ICD9: 564.1] Vikki Deniz KEARNEYQUELINE AlejandraSujata DENIZ [facility] CPT - 4: 47817 12/15/2011 OFFICE/OUTPATIENT VISIT EST Diagnosis: DIZZINESS/VERTIGO[ICD9: 780.4] Diagnosis: HYPOGLYCEMIA[ICD9: 251.2] Vikki Ciscobhavya PIKE AlejandraSujata CISCO MARTINEZ [facility] CPT-4: 93816 09/21/2011 ([id number]) OFFICE/OUTPATIENT VISIT EST Diagnosis: URINARY TRACT INFECTION[ICD9: 599.0] Vikki BRAVO AlejandraSujata DENIZ [facility] CPT-4: 82982 09/16/2011 ([id number]) OFFICE/OUTPATIENT VISIT EST Diagnosis: HYPERLIPIDEMIA NEC/NOS[ICD9: 272.4] Diagnosis: HYPERTENSION[ICD9: 401.9] Diagnosis: MALAISE AND FATIGUE[ICD9: 780.79] Diagnosis: DIZZINESS/VERTIGO[ICD9: 780.4] Vikki GUAMAN [facility] CPT-4: 43817 09/15/2011 ([id number]) OFFICE/OUTPATIENT VISIT EST Diagnosis: DIZZINESS/VERTIGO[ICD9: 780.4] Diagnosis: MALAISE AND FATIGUE[ICD9: 780.79] Diagnosis: HYPERTENSION[ICD9: 401.9] Vikki MARTINEZ [facility] CPT-4: 48600 09/13/2011 OFFICE/OUTPATIENT VISIT EST Diagnosis: LUMB/LUMBOSAC DISC DEGEN[ICD9: 722.52] Diagnosis: Radiculopathy of leg[ICD9: 724.4] Diagnosis: 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] Diagnosis: SPINAL ENTHESOPATHY[ICD9: 720.1] Vikki GUAMAN [facility] CPT-4: 41773 08/16/2011 ([id number]) OFFICE/OUTPATIENT VISIT EST Diagnosis: PAIN, LOWER BACK[ICD9: 724.2] Diagnosis: SPASM OF MUSCLE[ICD9: 728.85] Diagnosis: SCIATICA[ICD9: 724.3] Diagnosis: Lumbar degenerative disc disease[ICD9: 722.52] Vikki GUAMAN [facility] CPT-4: 18229 08/03/2011 ([id number]) OFFICE/OUTPATIENT VISIT EST Diagnosis: PAIN IN THORACIC SPINE[ICD9: 724.1] Diagnosis: SPASM OF MUSCLE[ICD9: 728.85] Vikki GUAMAN [facility] CPT-4: 27894 07/26/2011 ([id number]) OFFICE/OUTPATIENT VISIT EST Diagnosis: PAIN, LOWER BACK[ICD9: 724.2] Diagnosis: SPASM OF MUSCLE[ICD9: 728.85] Diagnosis: Sacroiliac dysfunction[ICD9: 739.4] Diagnosis: Lumbar degenerative disc disease[ICD9: 722.52] Vikki PECKNDER [facility] CPT-4: 49928 06/28/2011 OFFICE/OUTPATIENT VISIT EST Diagnosis: MALAISE AND FATIGUE[ICD9: 780.79] Diagnosis: HYPOTENSION[ICD9: 458.9] Diagnosis: CAD[ICD9: 414.00] Vikki CIDER [facility] CPT-4: 97026 03/31/2011 OFFICE/OUTPATIENT VISIT EST Diagnosis: SINUSITIS, ACUTE[ICD9: 461.9] Diagnosis: PHARYNGITIS, ACUTE[ICD9: 462] Diagnosis: CERUMEN IMPACTION[ICD9: 380.4] Vikki GUAMAN DO [facility] CPT-4: 07719 02/11/2011 OFFICE/OUTPATIENT VISIT EST Diagnosis: PAIN IN THORACIC SPINE[ICD9: 724.1] Diagnosis: GERD[ICD9: 530.81] Diagnosis: DIZZINESS/VERTIGO[ICD9: 780.4] Vikki PECKNDER [facility] CPT-4: 99401 10/15/2010 OFFICE/OUTPATIENT VISIT EST Vikki PECK NDER DO [facility] CPT- 4: 43562 09/29/2010 ([id number]) OFFICE/OUTPATIENT VISIT EST Vikki PATHAK SSujata ORENDER DO [facility] CPT-4: 70693 07/02/2010 ([id number]) OFFICE/OUTPATIENT VISIT, EST Diagnosis: PAIN, LOWER BACK[ICD9: 724.2] Vikki Deniz PIKE SSujata ORENDER DO [facility] CPT-4: 86816 04/06/2010 ([id number]) OFFICE/OUTPATIENT VISIT, EST Vikki KEELUTHER SSujata [facility] CPT-4: 97745 04/01/2010 ([id number]) OFFICE/OUTPATIENT VISIT, EST Vikki Guaman CAIO KRANTHI SSujata [facility] CPT-4: 51306 01/22/2010 ([id number]) OFFICE/OUTPATIENT VISIT, EST Vikkikranthi Peckfunmilayosakshi CAIO CHILANGOLUTHER Alyssa [facility] CPT-4: 75278 12/02/2009 ([id number]) OFFICE/OUTPATIENT VISIT, BRYAN Shah [facility] CPT-4: 31190 10/21/2009 ([id number]) OFFICE/OUTPATIENT VISIT, EST Vikki CRISOSTOMO SSujata [facility] CPT-4: 18485 09/10/2009 ([id number]) OFFICE/OUTPATIENT VISIT, BRYAN CRISOSTOMO SSujata [facility] CPT-4: 90079 08/11/2009 ([id number]) OFFICE/OUTPATIENT VISIT, BRYAN Shah [facility] CPT-4: 54162 06/09/2009 Plan of Care Planned Activity Notes Codes Status Date Appointment: Vikki Guaman WPtel: [address] [place] [address] LAB 01/23/2019 Appointment: Vikki Guaman WPtel: [address] [place] [address] US INJECTION 12/26/2018 Patient Education: INFLUENZA VACCINE CDC Completed 12/26/2018 Appointment: Vikki Guaman WPtel: [address] [place] [address] LAB 12/15/2018 Visit Diagnosis Plan: Acute serous [...] ICD-10 : H65.02 11/07/2018 Appointment: Jennifer Rosario [address] [place] [address] ACUTE ILLNESS 11/07/2018 Visit Diagnosis Plan: Urinary [...] ICD-10 : R53.83 08/14/2018 Appointment: Vikki Guamantel: [address] [place], [place] [id number] US FOLLOW UP 08/14/2018 Visit Diagnosis Plan: [...] : K21.9 05/10/2018 Appointment: Vikki Guaman WPtel: [address] [place], [place] [phone] [place] FOLLOW UP 05/10/2018 Patient Education: metoprolol tartrate- [facility] [facility] [id number] [email or web address] Completed 05/10/2018 Appointment: Vikki Guamna WPtel: [address] [place], [place] [id number] US CANCELED 04/21/2018 Visit Diagnosis Plan: Gastro-esophageal reflux disease without esophagitis Discussion: Continue protonix and carafate Proceed with updated EGD ICD-9 : 530.81 ICD-10 : K21.9 02/14/2018 Visit Diagnosis Plan: Epigastric pain Discussion: [facility] abdomen/pelvis due to ongoing abdominal pain ICD-9 : 789.06 ICD-10 : R10.13 02/14/2018 Appointment: Vik[facility] [phone] [facility] [facility] 02/14/2018 Care Plan: CT PELVIS W/O DYE LOINC : 361 08-9 Pending 02/14/2018 Care Plan: CT ABDOMEN W/O DYE LOINC : 36 103-0 Pending 02/14/2018 Care Plan: Referral Order SNOMED-CT : 30 [id number] Pending 02/14/2018 Visit Diagnosis Plan: 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 Discussion: S/P [...] : I10 01/10/2018 Appointment: Vikki Guaman [facility]Ptel[facility] [facility] 01/10/2018 Visit Diagnosis [...] : R00.2 12/06/2017 Appointment: Vikki Guaman WPtel: [address] [place] [address] FOLLOW UP 12/06/2017 Patient Education: Patient Medication Summary Completed 12/06/2017 Appointment: Vikki Guaman WPtel: [address] [place] [address] LAB 11/30/2017 Patient Education: Patient Medication Summary [...] F41.1 11/22/2017 Appointment: Vikki Guaman WPtel: [address] [place] [address] FOLLOW UP 11/22/2017 Patient Education: Patient Medication [...] K21.9 10/20/2017 Appointment: Vikki Guaman WPtel: [address] [place] [address] ACUTE ILLNESS 10/20/2017 Patient Education: Patient Medication Summary Completed 10/20/2017 Visit Diagnosis Plan: Dizziness and giddiness Discussi on: blood work to be completed in office including cmp, cbc, troponin to rule out glucose intolerance, infection, dehydration. instructed patient that she needs to see her brush or broom cutter sooner than oct and patient requested we contact dr. brown's office. will have front office make appt. patient has carotid doppler annually. ICD-9 : 780.4 ICD-10 : R42 09/27/2017 Appointment: Jennifer Rosario [address] [place] [address] ACUTE ILLNESS 09/27/2017 Patient Education: Patient Medication Summary Completed 09/27/2017 Visit Diagnosis Plan: Cervicalgia Discussion: Complete course of PT since symptoms improved Continue stretching exercises Notify if symptoms return or worsen ICD-9 : 723.1 ICD-10 : M54.2 08/16/2017 Appointment: Vikki Guaman WPtel: [address] [place], [place] [phone] FOLLOW UP 08/16/2017 Patient Education: [...] : H81.43 07/07/2017 Appointment: Vikki Guaman WPtel: [facility] 07/07/2017 Patient Education: Patient Medication Summary Completed 07/07/2017 Care Plan: MRI NECK SPINE W/O DYE LOINC : 96386-0 Pending 07/07/2017 Visit Diagnosis Plan: Otalgia, bilateral [...] : H81.13 05/30/2017 Appointment: Jennifer Rosario [address] [place] [address] ACUTE ILLNESS 05/30/2017 Patient Education: Patient Medication [...] M54.17 04/18/2017 Appointment: Vikki Guaman WPtel: [address] [place] [address] ACUTE ILLNESS 04/18/2017 Patient Education: Patient Medication Summary Completed 04/18/2017 Appointment: Vikki Guaman WPtel: [address] [place] [address] US INJECTION 12/10/2016 Patient Education: Patient Medication Summary Completed 12/10/2016 Appointment: Vikki Guaman WPtel: [address] [place] [address] US LAB 11/01/2016 Patient Education: Patient Medication [...] : M51.36 10/25/2016 Appointment: Vikki Guaman WPtel: [address] [place], [place] [phone] US FOLLOW UP 10/25/2016 Patient Education: Patient [...] : R10.32 09/20/2016 Appointment: Vikki Guaman WPtel: [address] [place], [place] [phone] ACUTE ILLNESS 09/20/2016 Patient Education: Patient Medication Summary Completed 09/20/2016 Appointment: Vikki Guaman WPtel: [address] [place] [address] US LAB 05/13/2016 Patient Education: Patient Medication [...] : N64.4 05/12/2016 Appointment: Vikki Guaman WPtel: [address] [place], [place] [phone] 05/11 confirmed `sl ACUTE ILLNESS 05/12/2016 Patient Education: Patient Medication Summary Completed 05/12/2016 Care Plan: MAMMOGRAM SCREENING LOINC : 2 6347-5 Pending 05/12/2016 Visit Diagnosis Plan: Acute upper respiratory infectio n, unspecified Discussion: Exam is reassuring Likely viral illness Supportive care reviewed and encouraged Follow up PRN ICD-9 : 465.9 ICD-10 : J06.9 03/18/2016 Appointment: Yue Moya [address] [place] [address] ACUTE ILLNESS 03/18/2016 Patient Education: Patient Medication Summary Completed 03/18/2016 Visit Plan: Supportive care. Rest, Fluid s, Tylenol/Motrin prn fever or bodyaches. Notify if worsening symptoms. 02/06/2016 Appointment: Vikki Guaman WPtel: [address] [place] [address] ACUTE ILLNESS 02/06/2016 Patient Education: Patient Medication Summary Completed 02/06/2016 Appointment: Vikki Guaman WPtel: [address] [place], [place] [phone] US INJECTION 12/12/2015 Patient Education: Patient Medication Summary Completed 12/12/2015 Appointment: Vikki Guamantel: [address] [place], [place] [phone] [place] LAB 11/25/2015 Patient Education: Patient Medication Summary Completed 11/25/2015 Visit Plan: Add miralax daily Use daily probiotic and metamucil and push fluids Notify if worsens/persists 08/26/2015 Appointment: Vikki Guaman WPtel: [address] [place], [place] [phone] 08/25/15 confirmed ~sl ACUTE ILLNESS 08/26/2015 Patient Education: Patient Medication Summary Completed 08/26/2015 Visit Plan: No NSAIDs Kidney function di scussed Discussed hydration Monitor lab every 4months so will check CMP, HbA1C next month 05/21/2015 Appointment: Vikki Guaman WPtel: [address] [place], [place] [address] 05/19 confirmed ~sl ACUTE ILLNESS 05/21/2015 Patient Education: Patient Medication Summary Completed 05/21/2015 Visit Plan: Vestibular exercises Refill flonase Strict low Na diet--discussed that needs to read labels Rx for walker with chair given due to muscle weakness/unsteadiness Has carotids and abdominal aorta and legs checked in March Check Chem 7 02/19/2015 Appointment: Vikki Guaman WPtel: [address] [place], [place] [phone] 02/18/15 appt confirmed cn FOLLOW UP 02/19 Patient Education: Patient Medication Summary Completed 02/19/2015 Patient Education: Vertigo Completed 1 04/22/2014 Appointment: Vikki Guaman WPtel: [address] [place], [place] [phone] [place] INJECTION 12/20/2014 Patient Education: Patient Medication Summary Completed 12/20/2014 Appointment: Vikki Guaman WPtel: [address] [place], [place] [phone] 11/19/2014 Patient Education: Patient Medication Summary Completed 11/19/2014 Referral: Edy Cheek WPtel: #1 [facility] [place] [address] Referral Completed 11/18/2014 Appointment: Vikki Guaman WPtel: [address] [place] [address] LAB 11/14/2014 Patient Education: Patient Medication Summary Completed 11/14/2014 Visit Plan: Check CMP, CBC, TSH, Free T4 , B12, Lipids, HbA1C Discussed 6 small meals a day each with protein Would likely benefit from antidepressant Update colonoscopy 11/13/2014 Appointment: Vikki Guaman WPtel: [address] [place], [place] [phone] 11/12/14 confirmed ACUTE ILLNESS 11/13/2014 Patient Education: Patient Medication Summary Completed 11/13/2014 Visit Plan: Cerumen flush with warm wate r and peroxide - good results Resume Nasonex nasal spray daily Recommended Debrox earwax removal drops 09/27/2014 Appointment: Jessenia Francis WPtel: [address] [place] [address] ACUTE ILLNESS 09/27/2014 Patient Education: Patient Medication Summary Completed 09/27/2014 Visit Plan: Continue aspirin daily Add m eloxicam for 1week Elevate and Ice Call on Tuesday07/11/2014 Appointment: Vikki Guaman WPtel: [address] [place] [address] ACUTE ILLNESS 07/11/2014 Patient Education: Patient Medication Summary Completed 07/11/2014 Visit Plan: Been using baclofen at [facility] and has helped some PT for next 2-4weeks 05/23/2014 Appointment: Vikki Guaman WPtel: [address] [place] [address] Hospital Follow Up 05/23/2014 Patient Education: Patient Medication Summary Completed 05/23/2014 Appointment: Vikki Guaman WPtel: [address] [place] [address] LAB 05/10/2014 Appointment: Vikki Guaman WPtel: [address] [place] [address] feeling better, weather - FOLLOW UP 04/07 Referral: Edy Cheek WPtel: 1 [facility]66[facility] Referral Appointment Requested 04/03/2014 Visit Plan: Continue exercise and curren t meds See surgery for removal of right arm lesion 03/20/2014 Appointment: Vikki Guaman WPtel: [address] [place] [address] FOLLOW UP 03/20/2014 Patient Education: Patient Medication Summary Completed 03/20/2014 Appointment: Vikki Guaman WPtel: [address] [place] [address] INJECTION 12/21/2013 Patient Education: Patient Medication Summary Completed 12/21/2013 Appointment: Jessenia Francis WPtel: [address] [place] [address] ACUTE ILLNESS 10/17/2013 Patient Education: Patient Medication Summary Completed 10/17/2013 Visit Plan: Discussed that likely lumbar etiology for leg weakness Will change amlodopine to low dose dyazide and see if helps legs and inner ear 09/24/2013 Appointment: Vikki Guaman WPtel: [address] [place] [address] FOLLOW UP 09/24/2013 Patient Education: Patient Medication Summary Completed 09/24/2013 Visit Plan: Ceftin and continue claritin /flonase Decrease amlodopine to 2.5mg q HS until fwup with Card due to weakness 05/31/2013 Appointment: Vikki Guaman WPtel: [address] [place] [address] ACUTE ILLNESS 05/31/2013 Patient Education: Patient Medication Summary Completed 05/31/2013 Appointment: Vikki Guaman WPtel: [address] [place] [address] LAB 03/28/2013 Patient Education: Patient Medication Summary Completed 03/28/2013 Appointment: Jessenia Francis WPtel: [address] [place] [address] ACUTE ILLNESS 03/26/2013 Patient Education: Patient Medication Summary Completed 03/26/2013 Visit Plan: Supportive care. Rest, Fluid s, Tylenol prn fever or bodyaches. Notify if worsening symptoms. Ceftin 12/19/2012 Appointment: Jessenia Francis WPtel: [address] [place] [address] ACUTE ILLNESS 12/19/2012 Patient Education: Patient Medication Summary Completed 12/19/2012 Appointment: Vikki Guaman WPtel: [address] [place] [address] CHECK 12/04/2012 Patient Education: Patient Medication Summary Completed 12/04/2012 Appointment: Vikki Guaman WPtel: [address] [place], [place] [phone] ER Follow UP 11/27/2012 Patient Education: Patient Medication Summary Completed 11/27/2012 Visit Plan: Restart flonase BID Use mecl izine 25mg q HS Vestibular exercises Claritin 10mg q AM See ENT if doesn't resolve 10/04/2012 Appointment: Vikki Guaman WPtel: [address] [place], [place] [phone] ACUTE ILLNESS 10/04/2012 Patient Education: Patient Medication Summary Completed 10/04/2012 Visit Plan: Will continue to observe 07/27/2012 Appointment: Vikki Guaman WPtel: [address] [place], [place] [phone] FOLLOW UP 07/27/2012 Patient Education: [...] ear recheck. 07/14/2012 Appointment: Evelyn Santos WPtel: [address] [place], [place] [phone] ACUTE ILLNESS 07/14/2012 Patient Education: Patient Medication Summary Completed 07/14/2012 Visit Plan: Decrease caffeine intake Kristin ck Bilateral Mammogram with US of left breast 06/08/2012 Appointment: Vikki Guaman WPtel: [address] [place], [place] [phone] ACUTE ILLNESS 06/08/2012 Patient Education: Patient Medication Summary Completed 06/08/2012 Appointment: Alisia Campbell WPtel: [address] [place], [place] [phone] appt scheduled 04/06 ACUTE ILLNESS 04/10/2012 Appointment: Vikki Guaman WPtel: [address] [place], [place] [phone] LAB 02/23/2012 Patient Education: Patient Medication Summary Completed 02/23/2012 Visit Plan: Continue off carafate and se e how does Continue probiotic Add Vestibular exercises and use meclizine prn Continue Nasonex Check fasting lab including CMP, Lipids, CBC, TSH, Free T4, HbA1C 02/22/2012 Appointment: Vikki Guaman WPtel: [address] [place], [place] [phone] FOLLOW UP 02/22/2012 Patient Education: Patient Medication Summary Completed 02/22/2012 Visit Plan: Continue carafate for 4more weeks at current dose then decrease to BID for 2wks then q HS 12/28/2011 Appointment: Vikki Guaman WPtel: [address] [place], [place] [phone] FOLLOW UP 12/28/2011 Patient Education: Patient Medication Summary Completed 12/28/2011 Visit Plan: Continue omeprazole Add Judi fate 1gm po q AC Add daily probiotic 12/15/2011 Appointment: Vikki Guaman WPtel: [address] [place], [place] [phone] ACUTE ILLNESS 12/15/2011 Patient Education: Patient Medication Summary Completed 12/15/2011 Appointment: Vikki Guaman WPtel: [address] [place], [place] [phone] US INJECTION 12/02/2011 Patient Education: Patient Medication Summary Completed 12/02/2011 Visit Plan: Diabetic Diet Accuchecks BID alternating times Hold onglyza and Januvia for now and continue diet and exercise and weight loss and lana BAPTISTE Discussed hypoglycemia and snack of peanut butter and crackers with juice or milk 09/21/2011 Appointment: Vikki Guaman WPtel: [address] [place], [place] [phone] WORK IN 09/21/2011 Patient Education: Patient Medication Summary Completed 09/21/2011 Appointment: Vikki Guaman WPtel: [address] [place] [address] 09/16/2011 Patient Education: Patient Medication Summary Completed 09/16/2011 Appointment: Vikki Guaman WPtel: [address] [place] [address] 09/15/2011 Patient Education: Patient Medication Summary Completed 09/15/2011 Appointment: Vikki Guaman WPtel: [address] [place] [address] ACUTE ILLNESS 09/13/2011 Patient Education: Patient Medication Summary Completed 09/13/2011 Visit Plan: Injection to Right SI joint as above Pt will call in 3 days on pain Has PT starting in 2wks. 08/16/2011 Appointment: Vikki Guaman WPtel: [address] [place] [address] ACUTE ILLNESS 08/16/2011 Patient Education: Patient Medication Summary Completed 08/16/2011 Visit Plan: OMT done Start PT May need u pdated MRI if need to consider epidural Prednisone 08/03/2011 Appointment: Vikki Guaman WPtel: [address] [place] [address] OMT 08/03/2011 Patient Education: Patient Medication Summary Completed 08/03/2011 Visit Plan: Flexeril and Vimovo OMT done Daily stretches 07/26/2011 Appointment: Vikki Guaman WPtel: [address] [place] [address] ACUTE ILLNESS 07/26/2011 Patient Education: Patient Medication Summary Completed 07/26/2011 Visit Plan: OMT done Daily stretches Roque st heat or biofreeze Right SI joint injection Call in 1week Vimovo BID 06/28/2011 Appointment: Vikki Guaman WPtel: [address] [place] [address] ACUTE ILLNESS 06/28/2011 Patient Education: Patient Medication Summary Completed 06/28/2011 Appointment: Vikki Guamantel: [address] [place], [place] [phone] LAB 04/01/2011 Patient Education: Patient Medication Summary Completed 04/01/2011 Visit Plan: Decrease amlodopine to 1.25m g daily Schedule with Cardiology Fasting lab in AM 03/31/2011 Appointment: Vikki Guaman WPtel: [address] [place], [place] [id number] ACUTE ILLNESS 03/31/2011 Patient Education: Patient Medication Summary Completed 03/31/2011 Visit Plan: Saline nasal flushes prn. Ty lenol/Motrin prn headache. Notify if persists/symptoms worsening. Cerumen removal from ears as above 02/11/2011 Appointment: Vikki Guaman WPtel: [address] [place] [address] ACUTE ILLNESS 02/11/2011 Patient Education: Patient Medication Summary Completed 02/11/2011 Appointment: Vikki Guaman WPtel: [address] [place] [address] [place] INJECTION 12/09/2010 Patient Education: Patient Medication Summary Completed 12/09/2010 Visit Plan: Continue vimovo for 1more we ek Increase Omeprazole to BID for 1mo then resume QD if stomach improved Vestibular exercises with meclizine q HS for next week 10/15/2010 Appointment: Vikki Guaman WPtel: [address] [place], [place] [phone] FOLLOW UP 10/15/2010 Patient Education: Patient Medication Summary Completed 10/15/2010 Appointment: Vikki Guaman WPtel: [address] [place] [address] ACUTE ILLNESS 09/29/2010 Patient Education: Patient Medication Summary Completed 09/29/2010 Appointment: Vikki Guaman WPtel: [address] LAB 07/06/2010 Patient Education: Patient Medication Summary Completed 07/06/2010 Visit Plan: Saline nasal flushes prn. Ty lenol/Motrin prn headache. Notify if persists/symptoms worsening. Add Veramyst Increase Omeprazole to 20mg po BID 07/02/2010 Appointment: Vikki Guaman WPtel: [address] [place] [address] ACUTE ILLNESS 07/02/2010 Patient Education: Patient Medication Summary Completed 07/02/2010 Appointment: Vikki Guaman WPtel: [address] [place] [address] FOLLOW UP 04/06/2010 Patient Education: Patient Medication Summary Completed 04/06/2010 Appointment: Vikki Guaman WPtel: [address] [place] [address] ACUTE ILLNESS 04/01/2010 Patient Education: Patient Medication Summary Completed 04/01/2010 Visit Plan: Nasocourt sample given. Pt. will notify if symptoms are worse on Tuesday. 01/22/2010 Appointment: Alisia Campbell WPtel: [address] [place] [address] ACUTE ILLNESS 01/22/2010 Patient Education: Patient Medication Summary Completed 01/22/2010 Appointment: Vikki Guaman WPtel: [address] [place], [place] [phone] [place] INJECTION 12/10/2009 Patient Education: Patient Medication Summary Completed 12/10/2009 Appointment: Vikki Guaman WPtel: [address] [place] [address] FOLLOW UP 12/02/2009 Patient Education: Patient Medication Summary Completed 12/02/2009 Patient Education: Lexapro Completed 0 12/02/2009 Visit Plan: May proceed with hiatal ryan ia repair per Card. so will contact Dr. Mariscal's office to proceed with surgery Trial of Lexapro 5mg QD plus use xanax prn 10/21/2009 Appointment: Vikki Guaman WPtel: [address] [place] [address] FOLLOW UP 10/21/2009 Patient Education: Patient Medication Summary Completed 10/21/2009 Visit Plan: B12 given Cont oral B12 and iron Fwup 1mo for B12 Proceed with hiatal hernia repair once card clearance 09/10/2009 Appointment: Vikki Guaman WPtel: [address] [place] [address] FOLLOW UP 09/10/2009 Patient Education: Patient Medication Summary Completed 09/10/2009 Appointment: Vikki Guaman WPtel: [address] [place] [address] FOLLOW UP 08/11/2009 Patient Education: Patient Medication Summary Completed 08/11/2009 Appointment: Vikki Guaman WPtel: [address] [place] [address] [place] LAB 06/10/2009 Patient Education: Patient Medication Summary Completed 06/10/2009 Visit Plan: Check fasting lab in AM--CMP ,Lipids, CBC, Vit D, TSH,FreeT4, B12 06/09/2009 Appointment: Vikki Guaman WPtel: [address] [place] [address] FOLLOW UP 06/09/2009 Patient Education: Patient Medication Summary Completed 06/09/2009 Referral: Edy Cheek WPtel: [address] [place] [address] [place] Referral Appointment Requested Referral: Edy Cheek WPtel: [address] Referral Initiated Instructions Comment . Supportive [...]
--- OUTSIDE RECORDS SUMMARY | 2019-04-25 20:41 | XMS REPORT | CCD ---
Author Author Evelyne Guaman D.O. Organization [facility] Address [address] [place] [address] Phone Care Team Providers Care Supervisor Beam Department Name Role Phone Vikki Guaman D.O. PP Unavailable CCM Unavailable Summary Purpose Interface Exchange Insurance Providers Payer name Policy type / Coverage type Covered alliance party ID Effective Begin Date Effective End Date WPS MEDICARE PART B [place] Medicare Part B [id number] 2017 Unknown Aetna [facility] Medicare Part B [id number] Unknown Family history Father Diagnosis Age At Onset Heart disease Unknown Mother Diagnosis Age At Onset Heart disease Unknown Cancer Unknown Social History Social History Element Codes Description Effective Dates Tobacco history SNOMED CT: 079897245 Never smoker 09/29/2010 Marital status Unknown Single [...] R10.13 11/22/2017 Active 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: [...] Fill Instructions simvastatin 40 mg tablet RxNorm: 504104 1 Tablet(s) PO QD 01/22/2019 04/21/2019 Active omeprazole 40 mg capsule,delayed release RxNorm: 20020415 Capsu le(s) Oral QD 01/10/2019 07/08/2019 Active Xanax 0.25 mg tablet RxNorm: 477817 TAKE 1 TABLET BY MOUTH TWIC E DAILY 01/02/2019 No Stop Date Active omeprazole 40 mg capsule,delayed release RxNorm: 20020415 Capsu le(s) PO QD 12/11/2018 01/09/2019 Inactive metoprolol tartrate 25 mg tablet RxNorm: 687827 1 Tablet(s) PO BID 11/20/2018 05/18/2019 Active omeprazole 40 mg capsule,delayed release RxNorm: 793549 Capsu le(s) PO QD 11/13/2018 12/10/2018 Inactive Flonase Allergy Relief 50 mcg/actuation nasal spray,suspensi on RxNorm: 2897554 2 [place] NASAL QHS 11/07/2018 No Stop Date Active simvastatin 40 mg tablet RxNorm: 643256 1 Tablet(s) PO QD 10/23/2018 01/20/2019 Inactive simvastatin 40 mg tablet RxNorm: 762181 1 Tablet(s) PO QD 07/24/2018 10/21/2018 Inactive omeprazole 40 mg capsule,delayed release RxNorm: 423860 Capsu le(s) PO QD 07/13/2018 11/09/2018 Inactive simvastatin 40 mg tablet RxNorm: 823240 1 Tablet(s) PO QD 06/13/2018 07/12/2018 Inactive omeprazole 40 mg capsule,delayed release RxNorm: 433797 1 Capsu le(s) PO QD 06/13/2018 07/12/2018 Inactive Bactrim DS 800 mg-160 mg tablet RxNorm: 035777 1 Tablet(s) PO BID 0 05/12/2018 05/18/2018 Inactive Bactrim DS 800 mg-160 mg tablet RxNorm: 988310 1 Tablet(s) PO BID 0 05/12/2018 05/11/2018 Inactive Macrobid 100 mg capsule RxNorm: 811647 1 Capsule(s) PO BID 05/11/1905/16/2018 Inactive metoprolol tartrate 25 mg tablet RxNorm: 350660 1 Tablet(s) PO BID 05/10/2018 11/05/2018 Inactive Xanax 0.25 mg tablet RxNorm: 407204 TAKE 1 TABLET BY MOUTH TWIC E DAILY 02/16/2018 01/01/2019 Inactive Xanax 0.25 mg tablet RxNorm: 008691 1 Tablet(s) PO BID 02/14/2018 Inactive Protonix 40 mg tablet,delayed release RxNorm: 698406 1 Tablet(s) PO BID for stomach--replaces omeprazole 01/10/2018 05/09/2018 Inactive Carafate 1 gram tablet RxNorm: 809931 1 Tablet(s) PO AC & HS 201705/09/2018 Inactive Xanax 0.25 mg tablet RxNorm: 523283 1 Tablet(s) PO BID 01/03/201812/2017 Inactive Bactrim DS 800 mg-160 mg tablet RxNorm: 056999 1 Tablet(s) PO BID 1 12/12/2017 Inactive Bactrim DS 800 mg-160 mg tablet RxNorm: 427079 1 Tablet(s) PO BID 1 12/07/2017 Inactive Carafate 1 gram tablet RxNorm: 240768 1 Tablet(s) PO AC & HS 201712/21/2017 Inactive Protonix 40 mg tablet,delayed release RxNorm: 584961 1 Tablet(s) PO BID for stomach--replaces omeprazole 11/22/2017 01/09/2018 Inactive Protonix 40 mg tablet,delayed release RxNorm: 535652 1 Tablet(s) PO BID for stomach--replaces omeprazole 10/20/2017 11/21/2017 Inactive fluticasone 50 mcg/actuation nasal spray,suspension RxNorm: 2154056 2 [place] NASAL QD to each nostril 07/07/2017 08/13/2018 Inactive Nasonex 50 mcg/actuation [place] RxNorm: 6517542 2 [place] NASAL 201707/07/2017 Inactive omeprazole 40 mg capsule,delayed release RxNorm: 829215 1 Capsu le(s) PO QD 04/18/2017 10/19/2017 Inactive simvastatin 40 mg tablet RxNorm: 788929 1 Tablet(s) PO QD TAKE 1 TABLET EVERY DAY 04/18/2017 04/12/2018 Inactive metoprolol tartrate 25 mg tablet RxNorm: 268761 1/2 Tablet(s) PO QD 04/18/2017 01/09/2018 Inactive simvastatin 40 mg tablet RxNorm: 470391 Tablet(s) TAKE 1 TABLET EVERY DAY 10/27/2016 04/17/2017 Inactive metoprolol tartrate 25 mg tablet RxNorm: 086706 1/2 Tablet(s) PO QD 09/20/2016 03/18/2017 Inactive Flonase 50 mcg/actuation nasal spray,suspension RxNorm: 1797 933 2 [place] NASAL BID 09/20/2016 04/17/2017 Inactive omeprazole 40 mg capsule,delayed release RxNorm: 216932 1 Capsu le(s) PO QD 09/08/2016 04/17/2017 Inactive metoprolol tartrate 25 mg tablet RxNorm: 889734 1/2 Tablet(s) PO QD 06/14/2016 09/19/2016 Inactive ciprofloxacin 0.2 % ear drops in a dropperette RxNorm: 00491 6 4 Drop(s) OTIC TID for 1 week 02/06/2016 05/11/2016 Inactive cefdinir 300 mg capsule RxNorm: 630844 2 Capsule(s) PO QD 02/06/2016 02/15/2016 Inactive omeprazole 40 mg capsule,delayed release RxNorm: 208381 TAKE 1 CAPSULE EVERY DAY 11/06/2015 09/08/2016 Inactive simvastatin 40 mg tablet RxNorm: 653590 TAKE 1 TABLET EVERY DAY 05/201510/27/2016 Inactive Flonase 50 mcg/actuation nasal spray,suspension RxNorm: 1797 933 2 [place] NASAL BID 02/19/2015 09/19/2016 Inactive cefuroxime axetil 250 mg tablet RxNorm: 848383 1 Tablet(s) PO BID 0 11/21/2014 11/20/2014 Inactive cefuroxime axetil 250 mg tablet RxNorm: 010960 1 Tablet(s) PO BID 0 11/21/2014 11/27/2014 Inactive omeprazole 40 mg capsule,delayed release RxNorm: 055426 1 Capsu le(s) PO QD 10/09/2014 01/05/2015 Inactive meloxicam 7.5 mg tablet RxNorm: 351061 1 Tablet(s) PO QD 07/11/2014 0 08/09/2014 Inactive loratadine 10 mg tablet RxNorm: 975070 1 Tablet(s) PO QAM for a llergies 10/17/2013 08/13/2018 Inactive Flonase 50 mcg/actuation nasal spray,suspension RxNorm: 8963 23 2 [place] NASAL BID 10/17/2013 02/18/2015 Inactive prednisone 20 mg tablet RxNorm: 594479 2 Tablet(s) PO BID 10/17/2013 10/21/2013 Inactive Dyazide 37.5 mg-25 mg capsule RxNorm: 841834 1 Capsule(s) PO QAM 10/16/2013 Inactive Ceftin 500 mg tablet RxNorm: 410250 1 Tablet(s) PO BID 05/31/201307/2013 Inactive Ceftin 500 mg tablet RxNorm: 393064 1 Tablet(s) PO BID 03/26/2013 Inactive simvastatin 40 mg tablet RxNorm: 350371 Tablet(s) PO TA KE ONE TABLET BY MOUTH EVERY DAY 03/26/2013 10/07/2015 Inactive metoprolol tartrate 25 mg tablet RxNorm: 952601 Tablet( s) PO TAKE ONE-HALF TABLET BY MOUTH EVERY DAY 03/26/2013 11/12/2014 Inactive Ceftin 500 mg tablet RxNorm: 034311 1 Tablet(s) PO BID 12/19/2012 Inactive loratadine 10 mg tablet RxNorm: 180652 1 Tablet(s) PO QAM for a llergies 10/04/2012 12/02/2012 Inactive omeprazole 20 mg capsule,delayed release RxNorm: 433642 Capsule(s) PO TAKE ONE CAPSULE BY MOUTH TWICE DAILY 08/09/2012 10/08/2014 Inactive omeprazole 20 mg capsule,delayed release RxNorm: 745499 1 Capsu le(s) PO BID 08/09/2012 05/09/2018 Inactive Augmentin 875 mg-125 mg tablet RxNorm: 482690 1 Tablet(s) PO Q12H 0 07/14/2012 07/23/2012 Inactive Floxin Otic Drops 1 bottle Drops RxNorm: 5 Drop(s) OTIC BID 07/20/2012 Inactive metoprolol tartrate 25 mg tablet RxNorm: 544219 Tablet( s) PO TAKE ONE-HALF TABLET BY MOUTH EVERY DAY 04/11/2012 03/25/2013 Inactive simvastatin 40 mg tablet RxNorm: 542160 Tablet(s) PO TA KE ONE TABLET BY MOUTH EVERY DAY 04/11/2012 03/25/2013 Inactive lancets RxNorm: Misc Miscellaneous USE ONE TO CH JEFFERY GLUCOSE EVERY DAY 04/04/2012 05/09/2018 Inactive Carafate 1 gram tablet RxNorm: 917041 1 Tablet(s) PO AC & HS 201111/12/2014 Inactive Flagyl 500 mg tablet RxNorm: 682273 1 Tablet(s) PO TID 12/15/2011 Inactive Carafate 1 gram tablet RxNorm: 773165 1 Tablet(s) PO AC & HS 201102/12/2012 Inactive One Touch Test strips RxNorm: Miscellaneous QD 09/21/2011 05/09/2018 Inactive one touch ultra mini test strips Protonix 40 mg Tab RxNorm: 863014 1 Tablet(s) PO QD 09/13/20112011 Inactive Protonix 40 mg Tab RxNorm: 079586 1 Tablet(s) PO QD 09/13/20112011 Inactive prednisone 20 mg Tab RxNorm: 740745 1 Tablet(s) PO BID 08/03/201106/2011 Inactive Flexeril 5 mg Tab RxNorm: 875580 1 Tablet(s) PO QHS for spasm 07/2508/24/2011 Inactive Flexeril 5 mg Tab RxNorm: 290579 1 Tablet(s) PO QHS for spasm 06/2707/25/2011 Inactive amlodipine 2.5 mg Tab RxNorm: 110193 1/2 Tablet(s) PO QD replac es 5mg dose 03/31/2011 06/27/2011 Inactive simvastatin 40 mg tablet RxNorm: 197569 1 Tablet(s) PO QD 03/31/2011 03/24/2012 Inactive metoprolol tartrate 25 mg tablet RxNorm: 739889 1/2 Tablet(s) PO QD 03/31/2011 03/24/2012 Inactive omeprazole 20 mg capsule,delayed release RxNorm: 319077 1 Capsu le(s) PO BID 03/31/2011 09/12/2011 Inactive cefdinir 300 mg Cap RxNorm: 586334 2 Capsule(s) PO QD 02/11/201102/04 Inactive simvastatin 40 mg Tab RxNorm: 003649 1 Tablet(s) PO QD 02/01/2011 Inactive metoprolol tartrate 25 mg Tab RxNorm: 813180 1/2 Tablet(s) PO QD 03/30/2011 Inactive metoprolol tartrate 25 mg Tab RxNorm: 524688 1/2 Tablet(s) PO QD 12/28/2010 Inactive meclizine 25 mg Tab RxNorm: 1943596 1 Tablet(s) PO QHS 10/15/201011/2010 Inactive for dizziness Ceftin 500 mg Tab RxNorm: 381673 1 Tablet(s) PO BID 07/02/20102010 Inactive omeprazole 20 mg Cap, Delayed Release RxNorm: 143377 1 Capsule( s) PO BID 07/02/2010 12/28/2010 Inactive simvastatin 40 mg Tab RxNorm: 340241 1 Tablet(s) PO QD 06/30/201007/2018 Inactive simvastatin 40 mg Tab RxNorm: 310720 1 Tablet(s) PO QD 06/30/2010 Inactive simvastatin 40 mg Tab RxNorm: 846785 1 Tablet(s) PO QD 02/25/2010 Inactive Tessalon Perles 100 mg Cap RxNorm: 456204 1 Capsule(s) PO Q6-8H 01/28/2010 Inactive cefdinir 300 mg Cap RxNorm: 626538 1 Capsule(s) PO BID 01/22/2010 Inactive Lexapro 10 mg Tab RxNorm: 680708 1 Tablet(s) PO QD 12/02/2009 010 Inactive Cipro 250 mg Tab RxNorm: 339711 1 Tablet(s) PO BID 12/02/2009 010 Inactive Wellbutrin XL 150 mg 24 hr Tab RxNorm: 241066 1 Tablet(s) PO QAM 08/07/2009 Inactive Fish Oil 1,000 mg Cap RxNorm: 1 Capsule(s) PO QD No Start Date Active Tylenol Extra Strength 500 mg tablet RxNorm: 667410 1/2 Tablet( s) PO as needed No Start Date Active nitroglycerin 0.4 mg sublingual tablet RxNorm: 669026 Tablet(s) SL as needed No Start Date Active Calcium with Vitamin D 600 mg (1,500 mg)-400 unit tablet RxN orm: 183827 1 Tablet(s) PO QD No Start Date Active Multivitamin & Mineral Formula Tab RxNorm: 1 Tablet(s) PO QD No St art Date Active vitamin B complex capsule RxNorm: 1 Capsule(s) PO QD No Start Date Active Aspirin 81 mg Tab RxNorm: 208341 1 Tablet(s) PO QD No Start Date Active isosorbide mononitrate ER 30 mg tablet,extended release 24 h r RxNorm: 693176 1 Tablet(s) PO QHS No Start Date Active Vitamin D 1,000 unit Cap RxNorm: 668483 1 Capsule(s) PO QD No Start D ate Active Co Q-10 oral RxNorm: 30579 oral No Start Date Active metoprolol tartrate 25 mg Tab RxNorm: 627532 1/2 Tablet(s) PO QD No Start Date 12/27/2010 Inactive Nasonex 50 mcg/actuation [place] RxNorm: 7050709 2 [place] NASAL No Sta rt Date 07/06/2017 Inactive Vitamin B12 1000mcg Tablet RxNorm: 1 Tablet(s) PO QD No Start Date 11/12/2014 Inactive amlodipine 5 mg Tab RxNorm: 886800 1 Tablet(s) PO QD No Start Date Inactive simvastatin 40 mg tablet RxNorm: 442473 1 Tablet(s) PO QD No Start Date 06/12/2018 Inactive omeprazole 20 mg capsule,delayed release RxNorm: 567361 1 Capsu le(s) PO BID No Start Date 08/08/2012 Inactive omeprazole 40 mg capsule,delayed release RxNorm: 800897 1 Capsu le(s) PO QD No Start Date 06/12/2018 Inactive Nexium 40 mg Cap RxNorm: 811453 1 Capsule(s) PO QD No Start Date 01/05 Inactive Stool Softener 100 mg Tab RxNorm: 7649032 2 Tablet(s) PO BID No Sta rt Date 03/30/2011 Inactive Calcium with Vitamin D 600 mg (1,500 mg)-400 unit Tab RxNorm : 918695 1 Tablet(s) PO QD No Start Date 11/12/2014 Inactive iron 325 mg (65 mg iron) Tab RxNorm: 274653 1 Tablet(s) PO QD No St art Date 11/12/2014 Inactive Flonase 50 mcg/actuation Nasal [place] RxNorm: 302951 2 [place] DEMOND AL BID No Start Date 10/16/2013 Inactive fluticasone 50 mcg/actuation nasal spray,suspension RxNorm: 6827640 2 [place] NASAL QD to each nostril No Start Date 07/06/2017 Inactive Nasonex 50 mcg/actuation [place] RxNorm: 8795723 2 [place] NASAL QD No Start Date 07/06/2017 Inactive hydralazine 50 mg tablet RxNorm: 239120 1 Tablet(s) PO as needed for BP over 160/90 No Start Date 11/21/2017 Inactive Vimovo 500 mg-20 mg 12 hr Tab RxNorm: 792004 1 Tablet(s) PO BID No Start Date 02/10/2011 Inactive Tylenol PM 25 mg-500 mg/15 mL Oral Soln RxNorm: 1640930 1 PO QPM No Start Date 11/12/2014 Inactive Iron (Ferrous Sulfate) Oral RxNorm: Oral No Start Date 03/30/19 12 Inactive Reglan 10 mg Tab RxNorm: 865412 1 Tablet(s) PO TID before meals No Start Date 02/10/2011 Inactive Xanax 1 mg Tab RxNorm: 019649 1/2 Tablet(s) PO QD No Start Date 11/21 Inactive amlodipine 10 mg tablet RxNorm: 581283 1 Tablet(s) PO QD No Start D ate 09/23/2013 Inactive Iron (dried) Oral RxNorm: Oral No Start Date 03/30/2011 Inactiv e metoprolol tartrate 50 mg tablet RxNorm: 264090 1 Tablet(s) PO BID No Start Date 02/13/2018 Inactive Xanax 0.25 mg tablet RxNorm: 873718 1 Tablet(s) PO BID No Start Date 01/02/2018 Inactive lancets RxNorm: Miscellaneous check blood sugar at least once daily No Start Date 04/03/2012 Inactive simvastatin 40 mg Tab RxNorm: 520175 1 Tablet(s) PO QD No Start Date 02/24/2010 Inactive isosorbide mononitrate ER 30 mg tablet,extended release 24 h r RxNorm: 505757 1 Tablet(s) PO QHS No Start Date 08/13/2018 Inactive amlodipine 2.5 mg tablet RxNorm: 625602 1 Tablet(s) PO QD No Start Date 09/23/2013 Inactive sucralfate 1 gram tablet RxNorm: 735114 1 Tablet(s) PO QID No Start Date 05/09/2018 Inactive Fish Oil Oral RxNorm: Oral No Start Date 03/31/2011 Inactive Multiple Vitamin Oral RxNorm: Oral No Start Date 03/31/2011 [place] [facility] metoprolol tartrate 25 mg tablet RxNorm: 288361 1/2 Tablet(s) P O QD No Start Date 06/13/2016 Inactive metoprolol tartrate 50 mg tablet RxNorm: 859907 1/2 Tablet(s) P O BID No Start Date 05/09/2018 Inactive Flonase Allergy Relief 50 mcg/actuation nasal spray,suspensi on RxNorm: 5145086 2 [place] NASAL QHS No Start Date 11/06/2018 Inactive [...] Result Date S ervice Location GFR CALC [id number] GFR Non Afr Amr 52 mL/min 12/15/2018 Unk nown GFR CALC [id number] GFR Afr Amr >60 mL/min 12/15/2018 Unknow n COMPREHENSIVE METABOLIC 64022 AST 17 U/L 2018 Unknown COMPREHENSIVE METABOLIC 15490 ALT 11 U/L 2018 Unknown COMPREHENSIVE METABOLIC 71159 BUN 17 mg/dL 2018 Unknown COMPREHENSIVE METABOLIC 82525 ALBUMIN 3.9 g/dL 2018 Unknown COMPREHENSIVE METABOLIC 42035 CHLORIDE 108 mmol/L 12/15 Unknown COMPREHENSIVE METABOLIC 82551 Bili Total 0.5 mg/dL 12/15 Unknown COMPREHENSIVE METABOLIC 40046 ALK PHOS 72 U/L 2018 Unknown COMPREHENSIVE METABOLIC 00745 SODIUM 142 mmol/L 12/15 Unknown COMPREHENSIVE METABOLIC 46944 CREATININE 1.02 mg/dL 12/05 Unknown COMPREHENSIVE METABOLIC 52770 CALCIUM 9.3 mg/dL 2018 Unknown COMPREHENSIVE METABOLIC 04225 POTASSIUM 4.0 mmol/L 12/15 Unknown COMPREHENSIVE METABOLIC 92942 Total Protein 6.2 g/dL Unknown COMPREHENSIVE METABOLIC 10752 Glucose 93 mg/dL 2018 Unknown COMPREHENSIVE METABOLIC 79067 Bicarbonate 27 mmol/L 12/05 Unknown COMPREHENSIVE METABOLIC 82566 AGAP 7 mmol/L 2018 Unknown GFR CALC [id number] GFR Non Afr Amr 48 mL/min 08/14/2018 Unk nown GFR CALC [id number] GFR Afr Amr 59 mL/min 08/14/2018 Unknown THYROID STIMULATING HORMONE 95439 TSH 1.936 uIU/mL 08/14/2018 Unknown COMPREHENSIVE METABOLIC 45478 AST 18 U/L 2018 Unknown COMPREHENSIVE METABOLIC 88431 ALT 11 U/L 2018 Unknown COMPREHENSIVE METABOLIC 14346 BUN 18 mg/dL 2018 Unknown COMPREHENSIVE METABOLIC 12806 ALBUMIN 4.2 g/dL 2018 Unknown COMPREHENSIVE METABOLIC 58388 CHLORIDE 109 mmol/L 08/14 Unknown COMPREHENSIVE METABOLIC 13359 Bili Total 0.4 mg/dL 08/14 Unknown COMPREHENSIVE METABOLIC 63398 ALK PHOS 64 U/L 2018 Unknown COMPREHENSIVE METABOLIC 49197 SODIUM 142 mmol/L 08/14 Unknown COMPREHENSIVE METABOLIC 70564 CREATININE 1.09 mg/dL 08/05 Unknown COMPREHENSIVE METABOLIC 66462 CALCIUM 9.3 mg/dL 2018 Unknown COMPREHENSIVE METABOLIC 91395 POTASSIUM 4.7 mmol/L 08/14 Unknown COMPREHENSIVE METABOLIC 41339 Total Protein 6.3 g/dL Unknown COMPREHENSIVE METABOLIC 94485 Glucose 84 mg/dL 2018 Unknown COMPREHENSIVE METABOLIC 94072 Bicarbonate 25 mmol/L 08/05 Unknown COMPREHENSIVE METABOLIC 68442 AGAP 8 mmol/L 2018 Unknown COMPLETE BLOOD COUNT [id number] WBC 7.8 10e9/L 08/15/19 19 Unknown COMPLETE BLOOD COUNT [id number] RBC 4.04 10e12/L 2018 Unknown COMPLETE BLOOD COUNT [id number] HEMOGLOBIN 12.2 g/dL 08/15/19 19 Unknown COMPLETE BLOOD COUNT [id number] HEMATOCRIT 38.6 % 08/15/19 19 Unknown COMPLETE BLOOD COUNT [id number] MCV 95.5 fL 9 Unknown COMPLETE BLOOD COUNT [id number] MCH 30.2 pg 9 Unknown COMPLETE BLOOD COUNT [id number] MCHC 31.6 g/dL 9 Unknown COMPLETE BLOOD COUNT [id number] PLATELET COUNT 215 10e9/L 12/2018 Unknown COMPLETE BLOOD COUNT [id number] Mean Plt Volume 11.2 fL 12/2018 Unknown COMPLETE BLOOD COUNT [id number] Neut Auto 45.7 % 9 Unknown COMPLETE BLOOD COUNT [id number] Lymph Auto 42.1 % 08/15/19 19 Unknown COMPLETE BLOOD COUNT [id number] [place] Auto 9.2 % 9 Unknown COMPLETE BLOOD COUNT [id number] RDW 13.4 % 9 Unknown COMPLETE BLOOD COUNT [id number] Eos Auto 2.7 % 9 Unknown COMPLETE BLOOD COUNT [id number] Baso Auto 0.3 % 9 Unknown COMPLETE BLOOD COUNT [id number] Neutrophil Abs 3.56 10e9/L Unknown COMPLETE BLOOD COUNT [id number] Lymphocyte Abs 3.28 10e9/L Unknown COMPLETE BLOOD COUNT [id number] Monocyte Abs 0.72 10e9/L 08/05 Unknown COMPLETE BLOOD COUNT [id number] Eosinophil Abs 0.21 10e9/L Unknown COMPLETE BLOOD COUNT [id number] RDW-SD 44.9 fL 9 Unknown COMPLETE BLOOD COUNT [id number] Basophil Abs 0.02 10e9/L 08/05 Unknown COMPLETE BLOOD COUNT [id number] WBC 5.2 10e9/L 12/01/19 18 Unknown COMPLETE BLOOD COUNT [id number] RBC 4.21 10e12/L 2017 Unknown COMPLETE BLOOD COUNT [id number] HEMOGLOBIN 12.8 g/dL 12/01/19 18 Unknown COMPLETE BLOOD COUNT [id number] HEMATOCRIT 39.0 % 12/01/19 18 Unknown COMPLETE BLOOD COUNT [id number] MCV 92.6 fL 8 Unknown COMPLETE BLOOD COUNT [id number] MCH 30.4 pg 8 Unknown COMPLETE BLOOD COUNT [id number] MCHC 32.8 g/dL 8 Unknown COMPLETE BLOOD COUNT [id number] PLATELET COUNT 202 10e9/L Unknown COMPLETE BLOOD COUNT [id number] Mean Plt Volume 10.7 fL Unknown COMPLETE BLOOD COUNT [id number] Neut Auto 40.9 % 8 Unknown COMPLETE BLOOD COUNT [id number] Lymph Auto 46.3 % 12/01/19 18 Unknown COMPLETE BLOOD COUNT [id number] [place] Auto 9.3 % 8 Unknown COMPLETE BLOOD COUNT [id number] RDW 13.7 % 8 Unknown COMPLETE BLOOD COUNT [id number] Eos Auto 2.9 % 8 Unknown COMPLETE BLOOD COUNT [id number] Baso Auto 0.6 % 8 Unknown COMPLETE BLOOD COUNT [id number] Neutrophil Abs 2.13 10e9/L Unknown COMPLETE BLOOD COUNT [id number] Lymphocyte Abs 2.41 10e9/L Unknown COMPLETE BLOOD COUNT [id number] Monocyte Abs 0.48 10e9/L 11/06 Unknown COMPLETE BLOOD COUNT [id number] Eosinophil Abs 0.15 10e9/L Unknown COMPLETE BLOOD COUNT [id number] RDW-SD 45.2 fL 8 Unknown COMPLETE BLOOD COUNT [id number] Basophil Abs 0.03 10e9/L 11/06 [place] [address] Glucose 118 mg/dL 11/30 [place] [address] CREATININE 1.01 mg/dL [place] [address] BUN 14 mg/dL 11/30 [place] [address] SODIUM 141 mmol/L 11/06 [place] [address] POTASSIUM 4.0 mmol/L 11/06 [place] [address] CHLORIDE 108 mmol/L 11/06 [place] [address] Bicarbonate 25 mmol/L [place] [address] AGAP 8 mmol/L 11/30 [place] [address] CALCIUM 9.6 mg/dL 11/30 Unknown FREE T4 69629 T4 Free 1.23 ng/dL 11/30/2017 Unknown GFR CALC 9004502 GFR Non Afr Amr 53 mL/min 11/30/2017 Unk nown GFR CALC 3712309 GFR Afr Amr >60 mL/min 11/30/2017 Unknow n THYROID STIMULATING HORMONE 55671 TSH 2.124 uIU/mL 11/30/2017 Unknown LIPID GROUP 19599 Cholesterol 152 mg/dL 09/28/2017 Unkno wn LIPID GROUP 45450 Triglyceride 151 mg/dL 09/28/2017 Unkn own LIPID GROUP 36008 HDL CHOLESTEROL 47 mg/dL 09/28/2017 U nknown LIPID GROUP 14612 Chol/HDL Ratio 3.23 ratio 09/28/2017 U nknown LIPID GROUP 27641 NON-HDL Chol 105 mg/dL 09/28/2017 Unkn own LIPID GROUP 07213 LDL Cholesterol 75 mg/dL 09/28/2017 U nknown ASSAY OF TROPONIN QUANT 97899 Troponin-I <0.30 ng/mL Unknown COMPREHENSIVE METABOLIC 81019 AST 20 U/L 2017 Unknown COMPREHENSIVE METABOLIC 36747 ALT 14 U/L 2017 Unknown COMPREHENSIVE METABOLIC 28382 BUN 19 mg/dL 2017 Unknown COMPREHENSIVE METABOLIC 76767 ALBUMIN 4.2 g/dL 2017 Unknown COMPREHENSIVE METABOLIC 63856 CHLORIDE 102 mmol/L 09/27 Unknown COMPREHENSIVE METABOLIC 40168 Bili Total 0.4 mg/dL 09/27 Unknown COMPREHENSIVE METABOLIC 27814 ALK PHOS 66 U/L 2017 Unknown COMPREHENSIVE METABOLIC 35647 SODIUM 135 mmol/L 09/27 Unknown COMPREHENSIVE METABOLIC 53205 CREATININE 1.01 mg/dL 09/05 Unknown COMPREHENSIVE METABOLIC 21245 CALCIUM 9.3 mg/dL 2017 Unknown COMPREHENSIVE METABOLIC 19614 POTASSIUM 4.8 mmol/L 09/27 Unknown COMPREHENSIVE METABOLIC 47933 Total Protein 7.0 g/dL Unknown COMPREHENSIVE METABOLIC 86186 Glucose 91 mg/dL 2017 Unknown COMPREHENSIVE METABOLIC 02567 Bicarbonate 23 mmol/L 09/05 Unknown COMPREHENSIVE METABOLIC 80642 AGAP 10 mmol/L 2017 Unknown COMPLETE BLOOD COUNT [id number] WBC 7.5 10e9/L 09/28/19 18 Unknown COMPLETE BLOOD COUNT [id number] RBC 4.13 10e12/L 2017 Unknown COMPLETE BLOOD COUNT [id number] HEMOGLOBIN 12.6 g/dL 09/28/19 18 Unknown COMPLETE BLOOD COUNT [id number] HEMATOCRIT 38.4 % 09/28/19 18 Unknown COMPLETE BLOOD COUNT [id number] MCV 93.0 fL 8 Unknown COMPLETE BLOOD COUNT [id number] MCH 30.5 pg 8 Unknown COMPLETE BLOOD COUNT [id number] MCHC 32.8 g/dL 8 Unknown COMPLETE BLOOD COUNT [id number] PLATELET COUNT 204 10e9/L Unknown COMPLETE BLOOD COUNT [id number] Mean Plt Volume 10.9 fL Unknown COMPLETE BLOOD COUNT [id number] Neut Auto 43.1 % 8 Unknown COMPLETE BLOOD COUNT [id number] Lymph Auto 45.0 % 09/28/19 18 Unknown COMPLETE BLOOD COUNT [id number] [place] Auto 9.2 % 8 Unknown COMPLETE BLOOD COUNT 6837842 RDW 13.4 % 8 Unknown COMPLETE BLOOD COUNT [id number] Eos Auto 2.3 % 8 Unknown COMPLETE BLOOD COUNT 3974723 Baso Auto 0.4 % 8 Unknown COMPLETE BLOOD COUNT [id number] Neutrophil Abs 3.23 10e9/L Unknown COMPLETE BLOOD COUNT [id number] Lymphocyte Abs 3.38 10e9/L Unknown COMPLETE BLOOD COUNT [id number] Monocyte Abs 0.69 10e9/L 09/05 Unknown COMPLETE BLOOD COUNT [id number] Eosinophil Abs 0.17 10e9/L Unknown COMPLETE BLOOD COUNT [id number] RDW-SD 44.4 fL 8 Unknown COMPLETE BLOOD COUNT [id number] Basophil Abs 0.03 10e9/L 09/05 Unknown GFR CALC 2041609 GFR Non Afr Amr 53 mL/min 09/27/2017 Unk nown GFR CALC 1582955 GFR Afr Amr >60 mL/min 09/27/2017 Unknow n GLYCOSYLATED HEMOGLOBIN TEST 87061 Hgb A1c 54471-3 5.4 % 0 09/27/2017 Unknown MEAN GLUC 0828541 Calc Mean Gluc 108 mg/dL 09/27/2017 Unkn own MEAN GLUC 5860276 Calc Mean Gluc 114 mg/dL 11/01/2016 Unkn own LIPID GROUP 84842 Cholesterol 146 mg/dL 11/01/2016 Unkno wn LIPID GROUP 15621 Triglyceride 119 mg/dL 11/01/2016 Unkn own LIPID GROUP 15943 HDL CHOLESTEROL 47 mg/dL 11/01/2016 U nknown LIPID GROUP 30196 Chol/HDL Ratio 3.11 ratio 11/01/2016 U nknown LIPID GROUP 40747 NON-HDL Chol 99 mg/dL 11/01/2016 Unkn own LIPID GROUP 26171 LDL Cholesterol 75 mg/dL 11/01/2016 U nknown GLYCOSYLATED HEMOGLOBIN TEST 90143 Hgb A1c 04037-1 5.6 % 0 11/01/2016 Unknown COMPREHENSIVE METABOLIC 31915 AST 22 U/L 2016 Unknown COMPREHENSIVE METABOLIC 60132 ALT 12 U/L 2016 Unknown COMPREHENSIVE METABOLIC 36251 BUN 17 mg/dL 2016 Unknown COMPREHENSIVE METABOLIC 97568 ALBUMIN 4.0 g/dL 2016 Unknown COMPREHENSIVE METABOLIC 63951 CHLORIDE 110 mmol/L 11/01 Unknown COMPREHENSIVE METABOLIC 69847 Bili Total 0.4 mg/dL 11/01 Unknown COMPREHENSIVE METABOLIC 50054 ALK PHOS 63 U/L 2016 Unknown COMPREHENSIVE METABOLIC 15950 SODIUM 140 mmol/L 11/01 Unknown COMPREHENSIVE METABOLIC 27522 CREATININE 1.05 mg/dL 10/06 Unknown COMPREHENSIVE METABOLIC 16756 CALCIUM 9.2 mg/dL 2016 Unknown COMPREHENSIVE METABOLIC 79325 POTASSIUM 4.2 mmol/L 11/01 Unknown COMPREHENSIVE METABOLIC 55447 Total Protein 6.2 g/dL Unknown COMPREHENSIVE METABOLIC 50794 Glucose 87 mg/dL 2016 Unknown COMPREHENSIVE METABOLIC 04885 Bicarbonate 24 mmol/L 10/06 Unknown COMPREHENSIVE METABOLIC 27265 AGAP 6 mmol/L 2016 Unknown GFR CALC [id number] GFR Non Afr Amr 51 mL/min 11/01/2016 Unk nown GFR CALC [id number] GFR Afr Amr >60 mL/min 11/01/2016 Unknow n COMPLETE BLOOD COUNT [id number] WBC 6.7 10e9/L 11/02/19 17 Unknown COMPLETE BLOOD COUNT [id number] RBC 4.04 10e12/L 2016 Unknown COMPLETE BLOOD COUNT [id number] HEMOGLOBIN 12.1 g/dL 11/02/19 17 Unknown COMPLETE BLOOD COUNT [id number] HEMATOCRIT 38.0 % 11/02/19 17 Unknown COMPLETE BLOOD COUNT [id number] MCV 94.1 fL 7 Unknown COMPLETE BLOOD COUNT 5240106 MCH 30.0 pg 7 Unknown COMPLETE BLOOD COUNT [id number] MCHC 31.8 g/dL 7 Unknown COMPLETE BLOOD COUNT 1082109 PLATELET COUNT 206 10e9/L Unknown COMPLETE BLOOD COUNT 2976434 Mean Plt Volume 11.3 fL Unknown COMPLETE BLOOD COUNT 1649437 Neut Auto 35.8 % 7 Unknown COMPLETE BLOOD COUNT [id number] Lymph Auto 51.6 % 11/02/19 17 Unknown COMPLETE BLOOD COUNT 2979579 [place] Auto 8.8 % 7 Unknown COMPLETE BLOOD COUNT 9377740 RDW 13.5 % 7 Unknown COMPLETE BLOOD COUNT 8772948 Eos Auto 3.4 % 7 Unknown COMPLETE BLOOD COUNT 0304528 Baso Auto 0.4 % 7 Unknown COMPLETE BLOOD COUNT [id number] Neutrophil Abs 2.40 10e9/L Unknown COMPLETE BLOOD COUNT [id number] Lymphocyte Abs 3.46 10e9/L Unknown COMPLETE BLOOD COUNT 2744751 Monocyte Abs 0.59 10e9/L 10/06 Unknown COMPLETE BLOOD COUNT [id number] Eosinophil Abs 0.23 10e9/L Unknown COMPLETE BLOOD COUNT 4757356 RDW-SD 45.3 fL 7 Unknown COMPLETE BLOOD COUNT [id number] Basophil Abs 0.03 10e9/L 10/06 Unknown THYROID STIMULATING HORMONE 48971 TSH 1.981 uIU/mL 11/01/2016 Unknown COMPLETE BLOOD COUNT [id number] WBC 6.0 10e9/L 05/14/19 17 Unknown COMPLETE BLOOD COUNT [id number] RBC 4.29 10e12/L 2016 Unknown COMPLETE BLOOD COUNT [id number] HEMOGLOBIN 12.9 g/dL 05/14/19 17 Unknown COMPLETE BLOOD COUNT 4348414 HEMATOCRIT 38.4 % 05/14/19 17 Unknown COMPLETE BLOOD COUNT 1286774 MCV 89.5 fL 7 Unknown COMPLETE BLOOD COUNT 7909118 MCH 30.1 pg 7 Unknown COMPLETE BLOOD COUNT 1642664 MCHC 33.6 g/dL 7 Unknown COMPLETE BLOOD COUNT 1202459 PLATELET COUNT 181 10e9/L 11/2016 Unknown COMPLETE BLOOD COUNT 5118601 Mean Plt Volume 11.7 fL 11/2016 Unknown COMPLETE BLOOD COUNT 8913104 Neut Auto 36.9 % 7 Unknown COMPLETE BLOOD COUNT 7555225 Lymph Auto 50.4 % 05/14/19 17 Unknown COMPLETE BLOOD COUNT 8020130 [place] Auto 9.0 % 7 Unknown COMPLETE BLOOD COUNT 3349598 RDW 13.7 % 7 Unknown COMPLETE BLOOD COUNT 5942919 Eos Auto 3.4 % 7 Unknown COMPLETE BLOOD COUNT 5875909 Baso Auto 0.3 % 7 Unknown COMPLETE BLOOD COUNT [id number] Neutrophil Abs 2.21 10e9/L Unknown COMPLETE BLOOD COUNT [id number] Lymphocyte Abs 3.02 10e9/L Unknown COMPLETE BLOOD COUNT 2642214 Monocyte Abs 0.54 10e9/L 11/2016 Unknown COMPLETE BLOOD COUNT [id number] Eosinophil Abs 0.20 10e9/L Unknown COMPLETE BLOOD COUNT 1846491 RDW-SD 44.0 fL 7 Unknown COMPLETE BLOOD COUNT 3196040 Basophil Abs 0.02 10e9/L 11/2016 Unknown GLYCOSYLATED HEMOGLOBIN TEST 73177 Hgb A1c 35064-3 5.4 % 0 05/13/2016 Unknown THYROID STIMULATING HORMONE 94932 TSH 2.200 uIU/mL 05/13/2016 Unknown GFR CALC 3364513 GFR Non Afr Amr 50 mL/min 05/13/2016 Unk nown GFR CALC 4175475 GFR Afr Amr >60 mL/min 05/13/2016 Unknow n MEAN GLUC 4100039 Calc Mean Gluc 108 mg/dL 05/13/2016 Unkn own COMPREHENSIVE METABOLIC 29578 AST 18 U/L 2016 Unknown COMPREHENSIVE METABOLIC 30178 ALT 10 U/L 2016 Unknown COMPREHENSIVE METABOLIC 13300 BUN 20 mg/dL 2016 Unknown COMPREHENSIVE METABOLIC 74140 ALBUMIN 4.1 g/dL 2016 Unknown COMPREHENSIVE METABOLIC 93735 CHLORIDE 109 mmol/L 05/13 Unknown COMPREHENSIVE METABOLIC 91218 Bili Total 0.6 mg/dL 05/13 Unknown COMPREHENSIVE METABOLIC 10334 ALK PHOS 64 U/L 2016 Unknown COMPREHENSIVE METABOLIC 51975 SODIUM 141 mmol/L 05/13 Unknown COMPREHENSIVE METABOLIC 19595 CREATININE 1.06 mg/dL 11/2016 Unknown COMPREHENSIVE METABOLIC 89467 CALCIUM 9.9 mg/dL 2016 Unknown COMPREHENSIVE METABOLIC 52956 POTASSIUM 4.2 mmol/L 05/13 Unknown COMPREHENSIVE METABOLIC 45076 Total Protein 6.3 g/dL Unknown COMPREHENSIVE METABOLIC 12923 Glucose 99 mg/dL 2016 Unknown COMPREHENSIVE METABOLIC 22120 Bicarbonate 21 mmol/L 11/2016 Unknown COMPREHENSIVE METABOLIC 39779 AGAP 11 mmol/L 2016 Unknown LIPID GROUP 41398 Cholesterol 169 mg/dL 11/25/2015 Unkno wn LIPID GROUP 49087 Triglyceride 165 mg/dL 11/25/2015 Unkn own LIPID GROUP 29232 HDL CHOLESTEROL 43 mg/dL 11/25/2015 U nknown LIPID GROUP 04858 Chol/HDL Ratio 3.93 ratio 11/25/2015 U nknown LIPID GROUP 06434 NON-HDL Chol 126 mg/dL 11/25/2015 Unkn own LIPID GROUP 83804 LDL Cholesterol 93 mg/dL 11/25/2015 U nknown COMPREHENSIVE METABOLIC 47806 AST 18 U/L 2015 Unknown COMPREHENSIVE METABOLIC 00971 ALT 10 U/L 2015 Unknown COMPREHENSIVE METABOLIC 91483 BUN 20 mg/dL 2015 Unknown COMPREHENSIVE METABOLIC 50028 ALBUMIN 3.9 g/dL 2015 Unknown COMPREHENSIVE METABOLIC 75179 CHLORIDE 110 mmol/L 11/24 Unknown COMPREHENSIVE METABOLIC 72249 Bili Total 0.5 mg/dL 11/24 Unknown COMPREHENSIVE METABOLIC 08134 ALK PHOS 72 U/L 2015 Unknown COMPREHENSIVE METABOLIC 27097 SODIUM 141 mmol/L 11/24 Unknown COMPREHENSIVE METABOLIC 07518 CREATININE 1.12 mg/dL 11/06 Unknown COMPREHENSIVE METABOLIC 03802 CALCIUM 9.7 mg/dL 2015 Unknown COMPREHENSIVE METABOLIC 46279 POTASSIUM 4.4 mmol/L 11/24 Unknown COMPREHENSIVE METABOLIC 15325 Total Protein 6.2 g/dL Unknown COMPREHENSIVE METABOLIC 07100 Glucose 90 mg/dL 2015 Unknown COMPREHENSIVE METABOLIC 08897 Bicarbonate 23 mmol/L 11/06 Unknown COMPREHENSIVE METABOLIC 46270 AGAP 8 mmol/L 2015 Unknown GFR CALC 3081662 GFR Non Afr Amr 47 mL/min 11/25/2015 Unk nown GFR CALC [id number] GFR Afr Amr 57 mL/min 11/25/2015 Unknown GLYCOSYLATED HEMOGLOBIN TEST 56411 Hgb A1c 25508-4 5.5 % 0 11/25/2015 Unknown THYROID STIMULATING HORMONE 16248 TSH 2.537 uIU/mL 11/25/2015 Unknown FREE T4 41316 T4 Free 1.36 ng/dL 11/25/2015 Unknown COMPLETE BLOOD COUNT 6221681 WBC 6.8 10e9/L 11/25/19 16 Unknown COMPLETE BLOOD COUNT 0564618 RBC 4.20 10e12/L 2015 Unknown COMPLETE BLOOD COUNT 2852311 HEMOGLOBIN 12.5 g/dL 11/25/19 16 Unknown COMPLETE BLOOD COUNT 1054942 HEMATOCRIT 38.0 % 11/25/19 16 Unknown COMPLETE BLOOD COUNT 6999480 MCV 90.5 fL 6 Unknown COMPLETE BLOOD COUNT 4357801 MCH 29.8 pg 6 Unknown COMPLETE BLOOD COUNT 7348430 MCHC 32.9 g/dL 6 Unknown COMPLETE BLOOD COUNT 1478947 PLATELET COUNT 197 10e9/L Unknown COMPLETE BLOOD COUNT 5556649 Mean Plt Volume 11.7 fL Unknown COMPLETE BLOOD COUNT 9970316 Neut Auto 41.3 % 6 Unknown COMPLETE BLOOD COUNT 7733641 Lymph Auto 47.1 % 11/25/19 16 Unknown COMPLETE BLOOD COUNT 7010038 [place] Auto 7.8 % 6 Unknown COMPLETE BLOOD COUNT 6303283 RDW 13.8 % 6 Unknown COMPLETE BLOOD COUNT 0702667 Eos Auto 3.4 % 6 Unknown COMPLETE BLOOD COUNT 3109714 Baso Auto 0.4 % 6 Unknown COMPLETE BLOOD COUNT 7766406 Neutrophil Abs 2.81 10e9/L Unknown COMPLETE BLOOD COUNT 1698046 Lymphocyte Abs 3.20 10e9/L Unknown COMPLETE BLOOD COUNT 0138402 Monocyte Abs 0.53 10e9/L 11/06 Unknown COMPLETE BLOOD COUNT 3441505 Eosinophil Abs 0.23 10e9/L Unknown COMPLETE BLOOD COUNT 0096056 RDW-SD 44.4 fL 6 Unknown COMPLETE BLOOD COUNT 8705909 Basophil Abs 0.03 10e9/L 11/06 Unknown MEAN GLUC 1104192 Calc Mean Gluc 111 mg/dL 11/25/2015 [place] [address] Glucose 89 MG/DL 02/19 [place] [address] CREATININE 1.12 MG/DL [place] [address] BUN 20 MG/DL 02/19 [place] [address] SODIUM 139 MMOL/L 02/04 [place] [address] POTASSIUM 4.6 MMOL/L 02/04 [place] [address] CHLORIDE 108 MMOL/L 02/04 [place] [address] BICARB 26 MMOL/L 02/19 [place] [address] ANION GAP 5 MEQ/L 02/19 [place] [address] CALCIUM 10.0 MG/DL 02/04 Unknown GFR CALC 6409222 GFR AA 57.0L ML/MIN 02/19/2015 Unknow n GFR CALC 1225862 GFR NON-AA 47.0L ML/MIN 02/19/2015 Unkno wn THYROID STIMULATING HORMONE 02018 TSH 2.378 uIU/ML 11/14/2014 Unknown COMPLETE BLOOD COUNT 1215817 WBC 6.4 10e9/L 11/15/19 15 Unknown COMPLETE BLOOD COUNT 1644181 RBC 3.99 10e12/L 2014 Unknown COMPLETE BLOOD COUNT 9608302 HGB 11.9 g/dL 5 Unknown COMPLETE BLOOD COUNT 3081525 HCT DET 36.9 % 5 Unknown COMPLETE BLOOD COUNT 5947584 MCV 92.5 fL 5 Unknown COMPLETE BLOOD COUNT 1836045 MCH 29.8 pg 5 Unknown COMPLETE BLOOD COUNT 1120640 MCHC 32.2 g/dL 5 Unknown COMPLETE BLOOD COUNT 1068828 PLT 172 10e9/L 11/15/19 15 Unknown COMPLETE BLOOD COUNT 3473634 MPV 11.7 fL 5 Unknown COMPLETE BLOOD COUNT 7316710 CINTHYA % 40.4 % 5 Unknown COMPLETE BLOOD COUNT 2873316 LY % 48.0 % 5 Unknown COMPLETE BLOOD COUNT 7446189 MON % 8.3 % 5 Unknown COMPLETE BLOOD COUNT 7022145 EOS % 2.8 % 5 Unknown COMPLETE BLOOD COUNT 7809889 BASO % 0.5 % 5 Unknown COMPLETE BLOOD COUNT 3193056 RDW 13.6 % 5 Unknown COMPLETE BLOOD COUNT 9620668 ABS CINTHYA 2.59 10e9/L 015 Unknown COMPLETE BLOOD COUNT 4189520 ABS LYMPH 3.07 10e9/L 015 Unknown COMPLETE BLOOD COUNT 5758124 ABS MONO 0.53 10e9/L 015 Unknown COMPLETE BLOOD COUNT 1465912 ABS EOS 0.18 10e9/L 015 Unknown COMPLETE BLOOD COUNT 9596161 ABS BASO 0.03 10e9/L 015 Unknown COMPLETE BLOOD COUNT 1609352 RDW-SD 44.9 fL 5 Unknown LIPID GROUP 09492 HDL TEST 42 MG/DL 11/14/2014 Unknown LIPID GROUP 34076 TRIG 177 MG/DL 11/14/2014 Unknown LIPID GROUP 07954 TEST LDL 72 MG/DL 11/14/2014 Unknown LIPID GROUP 86449 CHOL 149 MG/DL 11/14/2014 Unknown LIPID GROUP 64446 RCHOL/HDL 3.55 RATIO 11/14/2014 Unknow n LIPID GROUP 57390 NON-HDL CH 107 MG/DL 11/14/2014 Unknow n GLYCOSYLATED HEMOGLOBIN TEST 72408 A1C HPLC 31468-0 5.5 % 0 11/14/2014 Unknown FREE T4 83980 FREE T4 1.39 NG/DL 11/14/2014 Unknown GFR CALC 4428727 GFR AA 55.0L ML/MIN 11/14/2014 Unknow n GFR CALC 9853993 GFR NON-AA 46.0L ML/MIN 11/14/2014 Unkno wn COMPREHENSIVE METABOLIC 76019 AST 17 U/L 2014 Unknown COMPREHENSIVE METABOLIC 06867 ALT 10 IU/L 2014 Unknown COMPREHENSIVE METABOLIC 39186 BUN 20 MG/DL 2014 Unknown COMPREHENSIVE METABOLIC 29190 ALBUMIN 3.9 GM/DL 2014 Unknown COMPREHENSIVE METABOLIC 87499 CHLORIDE 111 MMOL/L 11/14 Unknown COMPREHENSIVE METABOLIC 73559 BILI TOT 0.4 MG/DL 2014 Unknown COMPREHENSIVE METABOLIC 99937 ALK PHOS 70 U/L 2014 Unknown COMPREHENSIVE METABOLIC 18769 SODIUM 142 MMOL/L 11/14 Unknown COMPREHENSIVE METABOLIC 50943 CREATININE 1.16 MG/DL 11/05 Unknown COMPREHENSIVE METABOLIC 98989 CALCIUM 9.4 MG/DL 2014 Unknown COMPREHENSIVE METABOLIC 08489 POTASSIUM 4.6 MMOL/L 11/14 Unknown COMPREHENSIVE METABOLIC 45039 PROT TOT 6.2 GM/DL 2014 Unknown COMPREHENSIVE METABOLIC 76542 Glucose 90 MG/DL 2014 Unknown COMPREHENSIVE METABOLIC 27379 BICARB 24 MMOL/L 2014 Unknown COMPREHENSIVE METABOLIC 81968 ANION GAP 7 MEQ/L 2014 Unknown THYROID STIMULATING HORMONE 91694 TSH 2.427 uIU/ML 05/10/2014 Unknown LIPID GROUP 60613 HDL TEST 47 MG/DL 05/10/2014 Unknown LIPID GROUP 84159 TRIG 145 MG/DL 05/10/2014 Unknown LIPID GROUP 97698 TEST LDL 73 MG/DL 05/10/2014 Unknown LIPID GROUP 89189 CHOL 149 MG/DL 05/10/2014 Unknown LIPID GROUP 29069 RCHOL/HDL 3.17 RATIO 05/10/2014 Unknow n LIPID GROUP 22238 NON-HDL CH 102 MG/DL 05/10/2014 Unknow n COMPREHENSIVE METABOLIC 40798 AST 17 U/L 2014 Unknown COMPREHENSIVE METABOLIC 86364 ALT 9 IU/L 2014 Unknown COMPREHENSIVE METABOLIC 43289 BUN 19 MG/DL 2014 Unknown COMPREHENSIVE METABOLIC 13572 ALBUMIN 4.3 GM/DL 2014 Unknown COMPREHENSIVE METABOLIC 80282 CHLORIDE 108 MMOL/L 05/10 Unknown COMPREHENSIVE METABOLIC 27645 BILI TOT 0.5 MG/DL 2014 Unknown COMPREHENSIVE METABOLIC 57614 ALK PHOS 68 U/L 2014 Unknown COMPREHENSIVE METABOLIC 14095 SODIUM 140 MMOL/L 05/10 Unknown COMPREHENSIVE METABOLIC 86979 CREATININE 1.08 MG/DL 08/2014 Unknown COMPREHENSIVE METABOLIC 90087 CALCIUM 9.9 MG/DL 2014 Unknown COMPREHENSIVE METABOLIC 15209 POTASSIUM 4.3 MMOL/L 05/10 Unknown COMPREHENSIVE METABOLIC 18650 PROT TOT 7.2 GM/DL 2014 Unknown COMPREHENSIVE METABOLIC 91393 Glucose 94 MG/DL 2014 Unknown COMPREHENSIVE METABOLIC 30507 BICARB 26 MMOL/L 2014 Unknown COMPREHENSIVE METABOLIC 03396 ANION GAP 6 MEQ/L 2014 Unknown GFR CALC 5336894 GFR AA 60.0L ML/MIN 05/10/2014 Unknow n GFR CALC 9489592 GFR NON-AA 49.0L ML/MIN 05/10/2014 Unkno wn GLYCOSYLATED HEMOGLOBIN TEST 05328 A1C HPLC 84475-0 5.6 % 0 05/10/2014 Unknown COMPLETE BLOOD COUNT 7989908 WBC 7.2 10e9/L 05/11/19 15 Unknown COMPLETE BLOOD COUNT 7641492 RBC 4.28 10e12/L 2014 Unknown COMPLETE BLOOD COUNT 8257533 HGB 12.8 g/dL 5 Unknown COMPLETE BLOOD COUNT 8422271 HCT DET 39.3 % 5 Unknown COMPLETE BLOOD COUNT 3732989 MCV 91.8 fL 5 Unknown COMPLETE BLOOD COUNT 5950759 MCH 29.9 pg 5 Unknown COMPLETE BLOOD COUNT 8242148 MCHC 32.6 g/dL 5 Unknown COMPLETE BLOOD COUNT 8700959 PLT 189 10e9/L 05/11/19 15 Unknown COMPLETE BLOOD COUNT 0023564 MPV 11.2 fL 5 Unknown COMPLETE BLOOD COUNT 7460685 CINTHYA % 38.0 % 5 Unknown COMPLETE BLOOD COUNT 1524862 LY % 51.0 % 5 Unknown COMPLETE BLOOD COUNT 4842552 MON % 7.7 % 5 Unknown COMPLETE BLOOD COUNT 1214610 EOS % 2.9 % 5 Unknown COMPLETE BLOOD COUNT 0340611 BASO % 0.4 % 5 Unknown COMPLETE BLOOD COUNT 1346202 RDW 14.0 % 5 Unknown COMPLETE BLOOD COUNT 0829837 ABS CINTHYA 2.74 10e9/L 015 Unknown COMPLETE BLOOD COUNT 4287437 ABS LYMPH 3.67 10e9/L 015 Unknown COMPLETE BLOOD COUNT 0867126 ABS MONO 0.55 10e9/L 015 Unknown COMPLETE BLOOD COUNT 7315745 ABS EOS 0.21 10e9/L 015 Unknown COMPLETE BLOOD COUNT 4723721 ABS BASO 0.03 10e9/L 015 Unknown COMPLETE BLOOD COUNT 4364847 RDW-SD 46.1 fL 5 Unknown FREE T4 40010 FREE T4 1.14 NG/DL 05/10/2014 Unknown GLYCOSYLATED HEMOGLOBIN TEST 76489 A1C HPLC 72511-0 5.2 % 0 03/29/2013 Unknown FREE T4 39989 FREE T4 1.40 NG/DL 03/28/2013 Unknown GFR CALC 7384458 GFR AA >60 ML/MIN 03/28/2013 Unknown GFR CALC 5874045 GFR NON-AA 52.0L ML/MIN 03/28/2013 Unkno wn COMPREHENSIVE METABOLIC 36153 AST 15 U/L 2013 Unknown COMPREHENSIVE METABOLIC 74592 ALT 9 IU/L 2013 Unknown COMPREHENSIVE METABOLIC 22125 BUN 17 MG/DL 2013 Unknown COMPREHENSIVE METABOLIC 43664 ALBUMIN 4.0 GM/DL 2013 Unknown COMPREHENSIVE METABOLIC 02210 CHLORIDE 112 MMOL/L 03/28 Unknown COMPREHENSIVE METABOLIC 99028 BILI TOT 0.5 MG/DL 2013 Unknown COMPREHENSIVE METABOLIC 64067 ALK PHOS 66 U/L 2013 Unknown COMPREHENSIVE METABOLIC 37407 SODIUM 140 MMOL/L 03/28 Unknown COMPREHENSIVE METABOLIC 41634 CREATININE 1.03 MG/DL 03/08 Unknown COMPREHENSIVE METABOLIC 54526 CALCIUM 9.5 MG/DL 2013 Unknown COMPREHENSIVE METABOLIC 41556 POTASSIUM 4.1 MMOL/L 03/28 Unknown COMPREHENSIVE METABOLIC 58508 PROT TOT 6.2 GM/DL 2013 Unknown COMPREHENSIVE METABOLIC 99071 Glucose 102 MG/DL 2013 Unknown COMPREHENSIVE METABOLIC 52088 BICARB 23 MMOL/L 2013 Unknown COMPREHENSIVE METABOLIC 45344 ANION GAP 5 MEQ/L 2013 Unknown THYROID STIMULATING HORMONE 82049 TSH 2.074 uIU/ML 03/28/2013 Unknown VITAMIN B 12 FOLIC ACID 61674|40339 VIT B 12 423 PG/ML 03/08 Unknown VITAMIN B 12 FOLIC ACID 98827|49658 FOLIC ACID 19.7 NG/ML Unknown LIPID GROUP 40539 HDL TEST 40 MG/DL 03/28/2013 Unknown LIPID GROUP 33957 TRIG 145 MG/DL 03/28/2013 Unknown LIPID GROUP 80083 TEST LDL 81 MG/DL 03/28/2013 Unknown LIPID GROUP 87695 CHOL 150 MG/DL 03/28/2013 Unknown LIPID GROUP 20387 RCHOL/HDL 3.75 RATIO 03/28/2013 Unknow n COMPLETE BLOOD COUNT 9773973 WBC 6.0 10e9/L 03/28/19 14 Unknown COMPLETE BLOOD COUNT 2667975 RBC 4.26 10e12/L 2013 Unknown COMPLETE BLOOD COUNT 7146565 HGB 12.7 g/dL 4 Unknown COMPLETE BLOOD COUNT 7572917 HCT DET 38.7 % 4 Unknown COMPLETE BLOOD COUNT 9939412 MCV 90.8 fL 4 Unknown COMPLETE BLOOD COUNT 4455654 MCH 29.8 pg 4 Unknown COMPLETE BLOOD COUNT 9129084 MCHC 32.8 g/dL 4 Unknown COMPLETE BLOOD COUNT 3056939 PLT 178 10e9/L 03/28/19 14 Unknown COMPLETE BLOOD COUNT 7152370 MPV 11.7 fL 4 Unknown COMPLETE BLOOD COUNT 2298899 CINTHYA % 30.5 % 4 Unknown COMPLETE BLOOD COUNT 2539649 LY % 55.4 % 4 Unknown COMPLETE BLOOD COUNT 8738022 MON % 9.0 % 4 Unknown COMPLETE BLOOD COUNT 7824054 EOS % 4.4 % 4 Unknown COMPLETE BLOOD COUNT 2381607 BASO % 0.7 % 4 Unknown COMPLETE BLOOD COUNT 5913692 RDW 13.3 % 4 Unknown COMPLETE BLOOD COUNT 3655500 ABS CINTHYA 1.83 10e9/L 014 Unknown COMPLETE BLOOD COUNT 0687365 ABS LYMPH 3.32 10e9/L 014 Unknown COMPLETE BLOOD COUNT 2319592 ABS MONO 0.54 10e9/L 014 Unknown COMPLETE BLOOD COUNT 7419670 ABS EOS 0.26 10e9/L 014 Unknown COMPLETE BLOOD COUNT 2377083 ABS BASO 0.04 10e9/L 014 Unknown COMPLETE BLOOD COUNT 1893286 RDW-SD 43.2 fL 4 Unknown HEMOGLOBIN A1C (GLYCOSYLATED) 9034323 A1C HPLC 70889-6 5.5 % 02/24/2012 Unknown COMPLETE BLOOD COUNT 0343335 WBC 6.0 10e9/L 02/23/20 12 Unknown COMPLETE BLOOD COUNT 7128393 RBC 4.22 10e12/L 2011 Unknown COMPLETE BLOOD COUNT 9781915 HGB 12.4 g/dL 2 Unknown COMPLETE BLOOD COUNT 0276510 HCT DET 38.2 % 2 Unknown COMPLETE BLOOD COUNT 8663323 MCV 90.5 fL 2 Unknown COMPLETE BLOOD COUNT 9447318 MCH 29.4 pg 2 Unknown COMPLETE BLOOD COUNT 4723854 MCHC 32.5 g/dL 2 Unknown COMPLETE BLOOD COUNT 0538558 PLT 187 10e9/L 02/23/20 12 Unknown COMPLETE BLOOD COUNT 8986630 MPV 11.5 fL 2 Unknown COMPLETE BLOOD COUNT 6689142 CINTHYA % 36.4 % 2 Unknown COMPLETE BLOOD COUNT 2979893 LY % 51.0 % 2 Unknown COMPLETE BLOOD COUNT 7189603 MON % 8.7 % 2 Unknown COMPLETE BLOOD COUNT 8199191 EOS % 3.2 % 2 Unknown COMPLETE BLOOD COUNT 8483161 BASO % 0.7 % 2 Unknown COMPLETE BLOOD COUNT 9848841 RDW 13.7 % 2 Unknown COMPLETE BLOOD COUNT 5488763 ABS CINTHYA 2.18 10e9/L 012 Unknown COMPLETE BLOOD COUNT 5915535 ABS LYMPH 3.06 10e9/L 012 Unknown COMPLETE BLOOD COUNT 7442741 ABS MONO 0.52 10e9/L 012 Unknown COMPLETE BLOOD COUNT 7065971 ABS EOS 0.19 10e9/L 012 Unknown COMPLETE BLOOD COUNT 1317563 ABS BASO 0.04 10e9/L 012 Unknown COMPLETE BLOOD COUNT 7529117 RDW-SD 44.3 fL 2 Unknown LIPID GROUP 17273 HDL TEST 42 MG/DL 02/23/2012 Unknown LIPID GROUP 73297 TRIG 156 MG/DL 02/23/2012 Unknown LIPID GROUP 80009 TEST LDL 80 MG/DL 02/23/2012 Unknown LIPID GROUP 14149 CHOL 153 MG/DL 02/23/2012 Unknown LIPID GROUP 24173 RCHOL/HDL 3.64 RATIO 02/23/2012 Unknow n FREE T4 46801 FREE T4 1.22 NG/DL 02/23/2012 Unknown COMPREHENSIVE METABOLIC 60696 AST 20 U/L 2011 Unknown COMPREHENSIVE METABOLIC 79801 ALT 11 IU/L 2011 Unknown COMPREHENSIVE METABOLIC 44619 BUN 19 MG/DL 2011 Unknown COMPREHENSIVE METABOLIC 65187 ALBUMIN 4.3 GM/DL 2011 Unknown COMPREHENSIVE METABOLIC 06935 CHLORIDE 109 MMOL/L 02/22 Unknown COMPREHENSIVE METABOLIC 95938 BILI TOT 0.6 MG/DL 2011 Unknown COMPREHENSIVE METABOLIC 28979 ALK PHOS 84 U/L 2011 Unknown COMPREHENSIVE METABOLIC 54983 SODIUM 142 MMOL/L 02/22 Unknown COMPREHENSIVE METABOLIC 49030 CREATININE 1.09 MG/DL 02/04 Unknown COMPREHENSIVE METABOLIC 22521 CALCIUM 9.8 MG/DL 2011 Unknown COMPREHENSIVE METABOLIC 25340 POTASSIUM 4.2 MMOL/L 02/22 Unknown COMPREHENSIVE METABOLIC 58618 PROT TOT 6.4 GM/DL 2011 Unknown COMPREHENSIVE METABOLIC 51304 Glucose 89 MG/DL 2011 Unknown COMPREHENSIVE METABOLIC 50478 BICARB 25 MMOL/L 2011 Unknown COMPREHENSIVE METABOLIC 13537 ANION GAP 8 MEQ/L 2011 Unknown GFR CALC 6129548 GFR AA 60.0L ML/MIN 02/23/2012 Unknow n GFR CALC 9913493 GFR NON-AA 49.0L ML/MIN 02/23/2012 Unkno wn THYROID STIMULATING HORMONE 69604 TSH 2.450 uIU/ML 02/23/2012 Unknown COMPREHENSIVE METABOLIC 55170 AST 22 U/L 2011 Unknown COMPREHENSIVE METABOLIC 25198 ALT 14 IU/L 2011 Unknown COMPREHENSIVE METABOLIC 49357 BUN 21 MG/DL 2011 Unknown COMPREHENSIVE METABOLIC 61803 ALBUMIN 4.3 GM/DL 2011 Unknown COMPREHENSIVE METABOLIC 17806 CHLORIDE 106 MMOL/L 04/01 Unknown COMPREHENSIVE METABOLIC 51814 BILI TOT 0.4 MG/DL 2011 Unknown COMPREHENSIVE METABOLIC 02619 ALK PHOS 80 U/L 2011 Unknown COMPREHENSIVE METABOLIC 70025 SODIUM 141 MMOL/L 04/01 Unknown COMPREHENSIVE METABOLIC 65074 CREATININE 1.13 MG/DL 03/08 Unknown COMPREHENSIVE METABOLIC 92936 CALCIUM 9.4 MG/DL 2011 Unknown COMPREHENSIVE METABOLIC 16367 POTASSIUM 4.3 MMOL/L 04/01 Unknown COMPREHENSIVE METABOLIC 62941 PROT TOT 6.7 GM/DL 2011 Unknown COMPREHENSIVE METABOLIC 94926 Glucose 98 MG/DL 2011 Unknown COMPREHENSIVE METABOLIC 31844 BICARB 25 MMOL/L 2011 Unknown COMPREHENSIVE METABOLIC 12700 ANION GAP 10 MEQ/L 2011 Unknown LIPID GROUP 87315 HDL TEST 44 MG/DL 04/01/2011 Unknown LIPID GROUP 12355 TRIG 164 MG/DL 04/01/2011 Unknown LIPID GROUP 44423 TEST LDL 98 MG/DL 04/01/2011 Unknown LIPID GROUP 23773 CHOL 175 MG/DL 04/01/2011 Unknown LIPID GROUP 52686 RCHOL/HDL 3.98 RATIO 04/01/2011 Unknow n COMPLETE BLOOD COUNT 75613 WBC 6.7 10e9/L 04/01/19 12 Unknown COMPLETE BLOOD COUNT 90187 RBC 4.36 10e12/L 2011 Unknown COMPLETE BLOOD COUNT 79710 HGB 12.9 g/dL 2 Unknown COMPLETE BLOOD COUNT 09473 HCT DET 39.4 % 2 Unknown COMPLETE BLOOD COUNT 51306 MCV 90.4 fL 2 Unknown COMPLETE BLOOD COUNT 90674 MCH 29.6 pg 2 Unknown COMPLETE BLOOD COUNT 64344 MCHC 32.7 g/dL 2 Unknown COMPLETE BLOOD COUNT 42888 PLT 184 10e9/L 04/01/19 12 Unknown COMPLETE BLOOD COUNT 95717 MPV 10.9 fL 2 Unknown COMPLETE BLOOD COUNT 98023 CINTHYA % 41.5 % 2 Unknown COMPLETE BLOOD COUNT 83797 LY % 45.7 % 2 Unknown COMPLETE BLOOD COUNT 04615 MON % 9.4 % 2 Unknown COMPLETE BLOOD COUNT 03856 EOS % 3.0 % 2 Unknown COMPLETE BLOOD COUNT 89015 BASO % 0.4 % 2 Unknown COMPLETE BLOOD COUNT 08854 RDW 13.2 % 2 Unknown COMPLETE BLOOD COUNT 84847 ABS CINTHYA 2.78 10e9/L 012 Unknown COMPLETE BLOOD COUNT 77293 ABS LYMPH 3.06 10e9/L 012 Unknown COMPLETE BLOOD COUNT 62126 ABS MONO 0.63 10e9/L 012 Unknown COMPLETE BLOOD COUNT 93477 ABS EOS 0.20 10e9/L 012 Unknown COMPLETE BLOOD COUNT 07040 ABS BASO 0.03 10e9/L 012 Unknown COMPLETE BLOOD COUNT 52628 RDW-SD 42.3 fL 2 Unknown GFR CALC 5200691 GFR AA 57.0L ML/MIN 04/01/2011 Unknow n GFR CALC 7804715 GFR NON-AA 47.0L ML/MIN 04/01/2011 Unkno wn THYROID STIMULATING HORMONE 73497 TSH 2.663 uIU/ML 04/01/2011 Unknown FREE T4 54664 FREE T4 1.15 NG/DL 04/01/2011 Unknown THYROID STIMULATING HORMONE 99745 TSH 1.908 uIU/ML 07/06/2010 Unknown COMPLETE BLOOD COUNT 20151 WBC 6.4 10e9/L 07/07/19 11 Unknown COMPLETE BLOOD COUNT 61722 RBC 3.92 10e12/L 2010 Unknown COMPLETE BLOOD COUNT 71332 HGB 11.8 g/dL 1 Unknown COMPLETE BLOOD COUNT 05475 HCT DET 36.0 % 1 Unknown COMPLETE BLOOD COUNT 40613 MCV 91.8 fL 1 Unknown COMPLETE BLOOD COUNT 24251 MCH 30.1 pg 1 Unknown COMPLETE BLOOD COUNT 85293 MCHC 32.8 g/dL 1 Unknown COMPLETE BLOOD COUNT 50079 PLT 176 10e9/L 07/07/19 11 Unknown COMPLETE BLOOD COUNT 29985 MPV 11.4 fL 1 Unknown COMPLETE BLOOD COUNT 58811 CINTHYA % 50.4 % 1 Unknown COMPLETE BLOOD COUNT 68892 LY % 35.5 % 1 Unknown COMPLETE BLOOD COUNT 68173 MON % 10.2 % 1 Unknown COMPLETE BLOOD COUNT 92535 EOS % 3.3 % 1 Unknown COMPLETE BLOOD COUNT 10087 BASO % 0.6 % 1 Unknown COMPLETE BLOOD COUNT 23625 RDW 13.7 % 1 Unknown COMPLETE BLOOD COUNT 62952 ABS CINTHYA 3.23 10e9/L 011 Unknown COMPLETE BLOOD COUNT 25240 ABS LYMPH 2.27 10e9/L 011 Unknown COMPLETE BLOOD COUNT 83803 ABS MONO 0.65 10e9/L 011 Unknown COMPLETE BLOOD COUNT 77153 ABS EOS 0.21 10e9/L 011 Unknown COMPLETE BLOOD COUNT 28713 ABS BASO 0.04 10e9/L 011 Unknown COMPLETE BLOOD COUNT 29317 RDW-SD 45.3 fL 1 Unknown GFR CALC [id number] GFR AA >60 ML/MIN 07/06/2010 Unknown GFR CALC [id number] GFR NON-AA 53.0L ML/MIN 07/06/2010 Unkno wn FREE T4 52315 FREE T4 1.20 NG/DL 07/06/2010 Unknown COMPREHENSIVE METABOLIC 65801 AST 17 U/L 2010 Unknown COMPREHENSIVE METABOLIC 31855 ALT 9 IU/L 2010 Unknown COMPREHENSIVE METABOLIC 02074 BUN 16 MG/DL 2010 Unknown COMPREHENSIVE METABOLIC 53329 ALBUMIN 4.0 GM/DL 2010 Unknown COMPREHENSIVE METABOLIC 51101 CHLORIDE 108 MMOL/L 07/06 Unknown COMPREHENSIVE METABOLIC 30364 BILI TOT 0.5 MG/DL 2010 Unknown COMPREHENSIVE METABOLIC 13393 ALK PHOS 76 U/L 2010 Unknown COMPREHENSIVE METABOLIC 64377 SODIUM 139 MMOL/L 07/06 Unknown COMPREHENSIVE METABOLIC 76313 CREATININE 1.02 MG/DL 04/2010 Unknown COMPREHENSIVE METABOLIC 18000 CALCIUM 9.2 MG/DL 2010 Unknown COMPREHENSIVE METABOLIC 14139 POTASSIUM 4.5 MMOL/L 07/06 Unknown COMPREHENSIVE METABOLIC 77412 PROT TOT 6.1 GM/DL 2010 Unknown COMPREHENSIVE METABOLIC 80931 Glucose 93 MG/DL 2010 Unknown COMPREHENSIVE METABOLIC 12750 BICARB 26 MMOL/L 2010 Unknown COMPREHENSIVE METABOLIC 23846 ANION GAP 5 MEQ/L 2010 Unknown LIPID GROUP 76916 HDL TEST 46 MG/DL 07/06/2010 Unknown LIPID GROUP 55377 TRIG 102 MG/DL 07/06/2010 Unknown LIPID GROUP 58007 TEST LDL 88 MG/DL 07/06/2010 Unknown LIPID GROUP 64698 CHOL 154 MG/DL 07/06/2010 Unknown LIPID GROUP 44636 RCHOL/HDL 3.35 RATIO 07/06/2010 Unknow n Procedures Procedure Codes Date ROUTINE VENIPUNCTURE CPT-4: 86894 01/23/2019 LIPID PANEL CPT-4: 32103 01/23/2019 FLU VACC PRSV FREE INC ANTIG 65 AND OLDER CPT-4: 53886 12/26/2018 FLU VACC PRSV FREE INC ANTIG 65 AND OLDER CPT-4: 36496 12/26/2018 ADMIN INFLUENZA VIRUS VAC CPT-4: G0008 12/26/2018 COMPREHEN METABOLIC PANEL CPT-4: 94975 12/15/2018 ROUTINE VENIPUNCTURE CPT-4: 28032 12/15/2018 ROUTINE VENIPUNCTURE CPT-4: 54847 08/14/2018 ASSAY THYROID STIM HORMONE CPT-4: 20159 08/14/2018 COMPREHEN METABOLIC PANEL CPT-4: 35587 08/14/2018 COMPLETE CBC W/AUTO DIFF WBC CPT-4: 80781 08/14/2018 URINALYSIS NONAUTO W/O SCOPE CPT-4: 02525 05/10/2018 URINE CULTURE/ COLONY COUNT CPT-4: 73235 05/10/2018 URINE CULTURE/ COLONY COUNT CPT-4: 47054 12/06/2017 ROUTINE VENIPUNCTURE CPT-4: 73534 11/30/2017 ASSAY OF FREE THYROXINE CPT-4: 37727 11/30/2017 ASSAY THYROID STIM HORMONE CPT-4: 03675 11/30/2017 COMPLETE CBC W/AUTO DIFF WBC CPT-4: 63004 11/30/2017 METABOLIC PANEL TOTAL CA CPT-4: 32133 11/30/2017 FLU VACC PRSV FREE INC ANTIG 65 AND OLDER CPT-4: 48744 11/22/2017 ASSAY, GLUCOSE, BLOOD QUANT CPT-4: 41945 11/22/2017 ADMIN INFLUENZA VIRUS VAC CPT-4: G0008 11/22/2017 ROUTINE VENIPUNCTURE CPT-4: 79023 09/27/2017 COMPREHEN METABOLIC PANEL CPT-4: 11808 09/27/2017 COMPLETE CBC W/AUTO DIFF WBC CPT-4: 81183 09/27/2017 A1C HPLC CPT-4: 26423 09/27/2017 ASSAY OF TROPONIN QUANT CPT-4: 64583 09/27/2017 LIPID PANEL CPT-4: 82621 09/27/2017 THER/PROPH/DIAG INJ SC/IM CPT-4: 17694 05/30/2017 TRIAMCINOLONE ACET INJ NOS CPT-4: J3301 05/30/2017 URINALYSIS NONAUTO W/O SCOPE CPT-4: 86299 04/18/2017 URINE CULTURE/ COLONY COUNT CPT-4: 66901 04/18/2017 FLU VACC PRSV FREE INC ANTIG 65 AND OLDER CPT-4: 79190 12/10/2016 ADMIN INFLUENZA VIRUS VAC CPT-4: G0008 12/10/2016 ROUTINE VENIPUNCTURE CPT-4: 05892 11/01/2016 COMPREHEN METABOLIC PANEL CPT-4: 02635 11/01/2016 COMPLETE CBC W/AUTO DIFF WBC CPT-4: 01186 11/01/2016 LIPID PANEL CPT-4: 03297 11/01/2016 A1C HPLC CPT-4: 53709 11/01/2016 ASSAY THYROID STIM HORMONE CPT-4: 33231 11/01/2016 ROUTINE VENIPUNCTURE CPT-4: 68085 05/13/2016 ASSAY THYROID STIM HORMONE CPT-4: 39261 05/13/2016 COMPREHEN METABOLIC PANEL CPT-4: 93609 05/13/2016 COMPLETE CBC W/AUTO DIFF WBC CPT-4: 85257 05/13/2016 A1C HPLC CPT-4: 45665 05/13/2016 FLU VACC PRSV FREE INC ANTIG 65 AND OLDER CPT-4: 70484 12/12/2015 ADMIN INFLUENZA VIRUS VAC CPT-4: G0008 12/12/2015 ROUTINE VENIPUNCTURE CPT-4: 67892 11/25/2015 ASSAY OF FREE THYROXINE CPT-4: 57814 11/25/2015 ASSAY THYROID STIM HORMONE CPT-4: 40681 11/25/2015 COMPREHEN METABOLIC PANEL CPT-4: 66498 11/25/2015 COMPLETE CBC W/AUTO DIFF WBC CPT-4: 08755 11/25/2015 LIPID PANEL CPT-4: 17415 11/25/2015 A1C HPLC CPT-4: 11984 11/25/2015 URINALYSIS NONAUTO W/O SCOPE CPT-4: 49334 05/21/2015 ROUTINE VENIPUNCTURE CPT-4: 74142 02/19/2015 METABOLIC PANEL TOTAL CA CPT-4: 04518 02/19/2015 PRESCRIP TRANSMIT VIA ERX SY CPT-4: G8553 02/19/2015 FLU VACC PRSV FREE INC ANTIG 65 AND OLDER CPT-4: 48913 12/20/2014 ADMIN INFLUENZA VIRUS VAC CPT-4: G0008 12/20/2014 URINALYSIS NONAUTO W/O SCOPE CPT-4: 57701 11/19/2014 URINE CULTURE/ COLONY COUNT CPT-4: 67303 11/19/2014 ROUTINE VENIPUNCTURE CPT-4: 03318 11/14/2014 ASSAY OF FREE THYROXINE CPT-4: 98513 11/14/2014 ASSAY THYROID STIM HORMONE CPT-4: 51135 11/14/2014 COMPREHEN METABOLIC PANEL CPT-4: 17495 11/14/2014 COMPLETE CBC W/AUTO DIFF WBC CPT-4: 78790 11/14/2014 LIPID PANEL CPT-4: 37086 11/14/2014 A1C HPLC CPT-4: 46816 11/14/2014 CERUM REMOVAL CPT-4: 59117 09/27/2014 PRESCRIP TRANSMIT VIA ERX SY CPT-4: G8553 07/11/2014 FLUZONE, 5ML (Medicare) CPT-4: Q2038 12/21/2013 ADMIN INFLUENZA VIRUS VAC CPT-4: G0008 12/21/2013 PRESCRIP TRANSMIT VIA ERX SY CPT-4: G8553 10/17/2013 PRESCRIP TRANSMIT VIA ERX SY CPT-4: G8553 09/24/2013 PRESCRIP TRANSMIT VIA ERX SY CPT-4: G8553 05/31/2013 ROUTINE VENIPUNCTURE CPT-4: 89668 03/28/2013 ASSAY OF FREE THYROXINE CPT-4: 83063 03/28/2013 ASSAY THYROID STIM HORMONE CPT-4: 63641 03/28/2013 COMPREHEN METABOLIC PANEL CPT-4: 22572 03/28/2013 COMPLETE CBC W/AUTO DIFF WBC CPT-4: 97274 03/28/2013 LIPID PANEL CPT-4: 87836 03/28/2013 A1C HPLC CPT-4: 08034 03/28/2013 VITAMIN B 12 FOLIC ACID CPT-4: 68977|79441 03/28/2013 PRESCRIP TRANSMIT VIA ERX SY CPT-4: G8553 03/26/2013 PRESCRIP TRANSMIT VIA ERX SY CPT-4: G8553 12/19/2012 FLUZONE, 5ML (Medicare) CPT-4: Q2038 11/27/2012 ADMIN INFLUENZA VIRUS VAC CPT-4: G0008 11/27/2012 PRESCRIP TRANSMIT VIA ERX SY CPT-4: G8553 10/04/2012 PRESCRIP TRANSMIT VIA ERX SY CPT-4: G8553 07/14/2012 ROUTINE VENIPUNCTURE CPT-4: 25489 02/23/2012 ASSAY OF FREE THYROXINE CPT-4: 72332 02/23/2012 ASSAY THYROID STIM HORMONE CPT-4: 34936 02/23/2012 COMPREHEN METABOLIC PANEL CPT-4: 66430 02/23/2012 COMPLETE CBC W/AUTO DIFF WBC CPT-4: 19819 02/23/2012 LIPID PANEL CPT-4: 99220 02/23/2012 A1C GLYCOSYLATED HEMOGLOBIN TEST CPT-4: 06789 012 CERUM REMOVAL CPT-4: 33867 02/22/2012 PRESCRIP TRANSMIT VIA ERX SY CPT-4: G8553 02/22/2012 PRESCRIP TRANSMIT VIA ERX SY CPT-4: G8553 12/15/2011 FLUZONE, 5ML (Medicare) CPT-4: Q2038 12/02/2011 ADMIN INFLUENZA VIRUS VAC CPT-4: G0008 12/02/2011 ASSAY, GLUCOSE, BLOOD QUANT CPT-4: 76649 09/21/2011 URINALYSIS NONAUTO W/O SCOPE CPT-4: 33315 09/16/2011 URINE CULTURE/ COLONY COUNT CPT-4: 05394 09/16/2011 ROUTINE VENIPUNCTURE CPT-4: 42535 09/15/2011 ASSAY OF FREE THYROXINE CPT-4: 28695 09/15/2011 ASSAY THYROID STIM HORMONE CPT-4: 07146 09/15/2011 COMPREHEN METABOLIC PANEL CPT-4: 84868 09/15/2011 COMPLETE CBC W/AUTO DIFF WBC CPT-4: 43796 09/15/2011 LIPID PANEL CPT-4: 55781 09/15/2011 ASSAY OF INSULIN CPT-4: 86534 09/15/2011 A1C GLYCOSYLATED HEMOGLOBIN TEST CPT-4: 61319 012 DRAIN/INJECT JOINT/BURSA CPT-4: 55453 08/16/2011 METHYLPREDNISOLONE 40 MG INJ CPT-4: J1030 08/16/2011 TRIAMCINOLONE ACET INJ NOS CPT-4: J3301 08/16/2011 PRESCRIP TRANSMIT VIA ERX SY CPT-4: G8553 08/03/2011 PRESCRIP TRANSMIT VIA ERX SY CPT-4: G8553 07/26/2011 METHYLPREDNISOLONE 40 MG INJ CPT-4: J1030 06/28/2011 DRAIN/INJECT JOINT/BURSA CPT-4: 76003 06/28/2011 TRIAMCINOLONE ACET INJ NOS CPT-4: J3301 06/28/2011 PRESCRIP TRANSMIT VIA ERX SY CPT-4: G8553 06/28/2011 ROUTINE VENIPUNCTURE CPT-4: 77632 04/01/2011 ASSAY OF FREE THYROXINE CPT-4: 65613 04/01/2011 ASSAY THYROID STIM HORMONE CPT-4: 43626 04/01/2011 COMPREHEN METABOLIC PANEL CPT-4: 50965 04/01/2011 COMPLETE CBC W/AUTO DIFF WBC CPT-4: 31801 04/01/2011 LIPID PANEL CPT-4: 52355 04/01/2011 PRESCRIP TRANSMIT VIA ERX SY CPT-4: G8553 03/31/2011 CERUM REMOVAL CPT-4: 44984 02/11/2011 PRESCRIP TRANSMIT VIA ERX SY CPT-4: G8553 02/11/2011 FLUZONE, 5ML (Medicare) CPT-4: Q2038 12/09/2010 ADMIN INFLUENZA VIRUS VAC CPT-4: G0008 12/09/2010 PRESCRIP TRANSMIT VIA ERX SY CPT-4: G8553 10/15/2010 URINALYSIS NONAUTO W/O SCOPE CPT-4: 50801 09/29/2010 URINE CULTURE/ COLONY COUNT CPT-4: 93239 09/29/2010 CUR TOBACCO NON-USER CPT-4: G8457 09/29/2010 ROUTINE VENIPUNCTURE CPT-4: 99018 07/06/2010 COMPLETE CBC W/AUTO DIFF WBC CPT-4: 39531 07/06/2010 COMPREHEN METABOLIC PANEL CPT-4: 97195 07/06/2010 LIPID PANEL CPT-4: 16821 07/06/2010 ASSAY THYROID STIM HORMONE CPT-4: 42245 07/06/2010 ASSAY OF FREE THYROXINE CPT-4: 74883 07/06/2010 PRESCRIP TRANSMIT VIA ERX SY CPT-4: G8553 07/02/2010 INJ TRIGGER POINT 1/2 MUSCL CPT-4: 10680 04/06/2010 TRIAMCINOLONE ACET INJ NOS CPT-4: J3301 04/06/2010 METHYLPREDNISOLONE 40 MG INJ CPT-4: J1030 04/06/2010 THER/PROPH/DIAG INJ SC/IM CPT-4: 22480 04/01/2010 KETOROLAC TROMETHAMINE INJ CPT-4: J1885 04/01/2010 PRESCRIP TRANSMIT VIA ERX SY CPT-4: G8553 01/22/2010 FLU VACCINE 3 YRS & > IM UP 64 CPT-4: 33481 0 ADMIN INFLUENZA VIRUS VAC CPT-4: G0008 12/10/2009 URINALYSIS NONAUTO W/O SCOPE CPT-4: 56496 12/02/2009 URINE CULTURE/ COLONY COUNT CPT-4: 09073 12/02/2009 PRESCRIP TRANSMIT VIA ERX SY CPT-4: G8553 12/02/2009 THER/PROPH/DIAG INJ SC/IM CPT-4: 11872 09/10/2009 VITAMIN B12 INJECTION CPT-4: J3420 09/10/2009 THER/PROPH/DIAG INJ SC/IM CPT-4: 04249 08/11/2009 VITAMIN B12 INJECTION CPT-4: J3420 08/11/2009 ROUTINE VENIPUNCTURE CPT-4: 05961 06/10/2009 Vital Signs Date Vital 03/13/2019 Blood [...] 1: 142/60 Code: 8480-6 BMI: 38.2 Code: 46197-5 Heart Rate 1: 48 bpm Height: 5'2" Respiratory Rate: 20 bpm SpO2: 98% Tempera ture: 36.7 (C) / 98.1 (F) Weight: 212 lbs 01/10/2018 Blood Pressure 1: 142/64 Code: 8480-6 BMI: 38.5 Code: 34357-5 Heart Rate 1: 52 bpm Height: 5'2" Respiratory Rate: 22 bpm SpO2: 96% Tempera ture: 36.1 (C) / 96.9 (F) Weight: 214 lbs 12/06/2017 Blood Pressure 1: 124/80 Code: 8480-6 BMI: 38.3 Code: 67378-4 Heart Rate 1: 68 bpm Height: 5'2" Respiratory Rate: 20 bpm Temperature: 36 .3 (C) / 97.4 (F) Weight: 213 lbs 11/22/2017 Blood Pressure 1: 132/78 Code: 8480-6 BMI: 37.6 Code: 87513-1 Heart Rate 1: 68 bpm Height: 5'2" Respiratory Rate: 20 bpm SpO2: 97% Tempera ture: 36.8 (C) / 98.2 (F) Weight: 209 lbs 10/20/2017 Blood Pressure 1: 150/76 Code: 8480-6 BMI: 38.5 Code: 77326-1 Heart Rate 1: 64 bpm Height: 5'2" Respiratory Rate: 20 bpm SpO2: 97% Tempera ture: 36.2 (C) / 97.2 (F) Weight: 214 lbs 09/27/2017 Blood Pressure 1: 122/74 Code: 8480-6 BMI: 38.2 Code: 27868-9 Heart Rate 1: 64 bpm Height: 5'2" Respiratory Rate: 18 bpm SpO2: 96% Tempera ture: 35.8 (C) / 96.4 (F) Weight: 212 lbs 08/16/2017 Blood Pressure 1: 124/78 Code: 8480-6 BMI: 37.8 Code: 78091-9 Heart Rate 1: 76 bpm Height: 5'2" Respiratory Rate: 20 bpm Temperature: 36 .8 (C) / 98.3 (F) Weight: 210 lbs 07/07/2017 Blood Pressure 1: 136/70 Code: 8480-6 BMI: 38.0 Code: 65686-1 Heart Rate 1: 68 bpm Height: 5'2" Respiratory Rate: 20 bpm SpO2: 97% Tempera ture: 36.8 (C) / 98.2 (F) Weight: 211 lbs 05/30/2017 Blood Pressure 1: 140/65 Code: 8480-6 Heart Rate 1: 75 bpm Respiratory Rate: 24 bpm SpO2: 95% Temperature: 37.0 (C) / 98.6 (F) We ight: 211 lbs 04/18/2017 Blood Pressure 1: 154/70 Code: 8480-6 BMI: 37.6 Code: 81806-1 Heart Rate 1: 76 bpm Height: 5'2" Respiratory Rate: 20 bpm SpO2: 98% Tempera ture: 36.9 (C) / 98.5 (F) Weight: 209 lbs 10/25/2016 Blood Pressure 1: 156/70 Code: 8480-6 BMI: 37.1 Code: 14594-7 Heart Rate 1: 72 bpm Height: 5'2" Respiratory Rate: 20 bpm SpO2: 97% Tempera ture: 37.0 (C) / 98.6 (F) Weight: 206 lbs 09/20/2016 Blood Pressure 1: 152/78 Code: 8480-6 BMI: 36.8 Code: 59368-0 Heart Rate 1: 78 bpm Height: 5'2" Respiratory Rate: 20 bpm SpO2: 98% Tempera ture: 36.1 (C) / 97.0 (F) Weight: 204 lbs 05/12/2016 Blood Pressure 1: 142/70 Code: 8480-6 BMI: 36.9 Code: 99523-4 Heart Rate 1: 64 bpm Height: 5'2" [...] 1: 122/64 Code: 8480-6 BMI: 39.1 Code: 45737-6 Heart Rate 1: 76 bpm Height: 5'2" Respiratory Rate: 20 bpm Temperature: 36 .8 (C) / 98.2 (F) Weight: 217 lbs 05/21/2015 Blood Pressure 1: 144/70 Code: 8480-6 BMI: 39.4 Code: 04699-8 Heart Rate 1: 76 bpm Height: 5'2" Respiratory Rate: 20 bpm Temperature: 36 .6 (C) / 97.9 (F) Weight: 219 lbs 02/19/2015 Blood Pressure 1: 152/60 Code: 8480-6 BMI: 39.6 Code: 43412-3 Heart Rate 1: 84 bpm Height: 5'2" Respiratory Rate: 20 bpm Temperature: 37 .0 (C) / 98.6 (F) Weight: 220 lbs 11/13/2014 Blood Pressure 1: 146/76 Code: 8480-6 BMI: 39.8 Code: 45433-6 Heart Rate 1: 88 bpm Height: 5'2" Respiratory Rate: 20 bpm Temperature: 37 .0 (C) / 98.6 (F) Weight: 221 lbs 09/27/2014 Blood Pressure 1: 132/70 Code: 8480-6 BMI: 39.1 Code: 93447-3 Heart Rate 1: 88 bpm Height: 5'2" Respiratory Rate: 20 bpm Temperature: 36 .4 (C) / 97.6 (F) Weight: 217 lbs 07/11/2014 Blood Pressure 1: 132/66 Code: 8480-6 BMI: 39.9 Code: 06655-0 Heart Rate 1: 72 bpm Height: 5'2" Respiratory Rate: 20 bpm Temperature: 36 .9 (C) / 98.4 (F) Weight: 218 lbs 05/23/2014 Blood Pressure 1: 136/80 Code: 8480-6 Heart Rate 1: 76 bpm Respiratory Rate: 20 bpm Temperature: 36.7 (C) / 98.0 (F) Weight: 224 lbs 03/20/2014 Blood Pressure 1: 134/78 Code: 8480-6 BMI: 39.7 Code: 54195-5 Heart Rate 1: 84 bpm Height: 5'2" Respiratory Rate: 20 bpm Temperature: 36 .7 (C) / 98.0 (F) Weight: 217 lbs 10/17/2013 Blood Pressure 1: 146/78 Code: 8480-6 BMI: 39.5 Code: 54796-5 Heart Rate 1: 82 bpm Height: 5'2" Respiratory Rate: 18 bpm Temperature: 35 .6 (C) / 96.1 (F) Weight: 216 lbs 09/24/2013 Blood Pressure 1: 134/70 Code: 8480-6 BMI: 37.9 Code: 53422-6 Heart Rate 1: 80 bpm Height: 5'3" Respiratory Rate: 20 bpm Temperature: 36 .8 (C) / 98.2 (F) Weight: 214 lbs 05/31/2013 Blood Pressure 1: 132/70 Code: 8480-6 BMI: 37.6 Code: 87932-9 Heart Rate 1: 80 bpm Height: 5'3" Respiratory Rate: 20 bpm Temperature: 36 .8 (C) / 98.3 (F) Weight: 212 lbs 03/26/2013 Blood Pressure 1: 116/74 Code: 8480-6 Heart Rate 1: 68 bpm Respiratory Rate: 20 bpm Temperature: 36.2 (C) / 97.1 (F) Weight: 212 lbs 12/19/2012 Blood Pressure 1: 132/82 Code: 8480-6 BMI: 37.4 Code: 46082-7 Heart Rate 1: 76 bpm Height: 5'3" Respiratory Rate: 20 bpm Temperature: 36 .7 (C) / 98.0 (F) Weight: 211 lbs 12/04/2012 Blood Pressure 1: 130/76 Code: 8480-6 He art Rate 1: 78 bpm 11/27/2012 Blood Pressure 1: 140/82 Code: 8480-6 BMI: 36.8 Code: 97904-6 Heart Rate 1: 66 bpm Height: 5'3" Respiratory Rate: 20 bpm Temperature: 36 .1 (C) / 96.9 (F) Weight: 208 lbs 10/04/2012 Blood Pressure 1: 138/80 Code: 8480-6 BMI: 36.4 Code: 35550-3 Heart Rate 1: 72 bpm Height: 5'4" Respiratory Rate: 20 bpm Temperature: 36 .7 (C) / 98.0 (F) Weight: 212 lbs 07/27/2012 Blood Pressure 1: 124/70 Code: 8480-6 BMI: 36.9 Code: 97319-1 Heart Rate 1: 60 bpm Height: 5'4" Temperature: 36.1 (C) / 97.0 (F) Weight: 215 lbs 07/14/2012 Blood Pressure 1: 132/86 Code: 8480-6 BMI: 36.9 Code: 89605-8 Heart Rate 1: 76 bpm Height: 5'4" Respiratory Rate: 20 bpm Temperature: 36 .8 (C) / 98.2 (F) Weight: 215 lbs 06/08/2012 Blood Pressure 1: 134/82 Code: 8480-6 BMI: 36.6 Code: 69344-4 Heart Rate 1: 72 bpm Height: 5'4" Respiratory Rate: 20 bpm Temperature: 36 .3 (C) / 97.4 (F) Weight: 213 lbs 02/22/2012 Blood Pressure 1: 142/80 Code: 8480-6 BMI: 37.1 Code: 28529-6 Heart Rate 1: 76 bpm Height: 5'4" Respiratory Rate: 20 bpm Temperature: 36 .8 (C) / 98.3 (F) Weight: 216 lbs 12/28/2011 Blood Pressure 1: 128/68 Code: 8480-6 BMI: 37.6 Code: 06951-7 Heart Rate 1: 72 bpm Height: 5'4" [...] 1: 128/78 Code: 8480-6 BMI: 38.1 Code: 37464-6 Heart Rate 1: 84 bpm Height: 5'4" Respiratory Rate: 20 bpm Temperature: 36 .9 (C) / 98.4 (F) Weight: 222 lbs 08/16/2011 Blood Pressure 1: 138/80 Code: 8480-6 BMI: 37.9 Code: 97754-8 Heart Rate 1: 74 bpm Height: 5'4" Temperature: 36.1 (C) / 97.0 (F) Weight: 221 lbs 08/03/2011 Blood Pressure 1: 126/78 Code: 8480-6 BMI: 38.4 Code: 31683-7 Heart Rate 1: 72 bpm Height: 5'4" Respiratory Rate: 20 bpm Temperature: 36 .7 (C) / 98.0 (F) Weight: 224 lbs 07/26/2011 Blood Pressure 1: 138/72 Code: 8480-6 BMI: 38.4 Code: 19673-0 Heart Rate 1: 72 bpm Height: 5'4" Respiratory Rate: 20 bpm Temperature: 36 .6 (C) / 97.9 (F) Weight: 224 lbs 06/28/2011 Blood Pressure 1: 122/78 Code: 8480-6 BMI: 38.8 Code: 53461-0 Heart Rate 1: 88 bpm Height: 5'4" Respiratory Rate: 20 bpm Temperature: 36 .6 (C) / 97.8 (F) Weight: 226 lbs 03/31/2011 Blood Pressure 1: 116/60 Code: 8480-6 BMI: 38.1 Code: 65486-8 Heart Rate 1: 92 bpm Height: 5'4" Respiratory Rate: 20 bpm Temperature: 36 .8 (C) / 98.2 (F) Weight: 222 lbs 02/11/2011 Blood Pressure 1: 118/62 Code: 8480-6 BMI: 37.9 Code: 11364-1 Heart Rate 1: 80 bpm Height: 5'4" Temperature: 36.5 (C) / 97.7 (F) Weight: 221 lbs 10/15/2010 Blood Pressure 1: 132/70 Code: 8480-6 Heart Rate 1: 84 bpm Respiratory Rate: 20 bpm Temperature: 36.7 (C) / 98.0 (F) Weight: 221 lbs 09/29/2010 Blood Pressure 1: 114/72 Code: 8480-6 BMI: 37.6 Code: 30352-5 Heart Rate 1: 76 bpm Height: 5'4" [...] 1: 120/70 Code: 8480-6 BMI: 38.3 Code: 57640-9 Heart Rate 1: 88 bpm Height: 5'5" [...] 09/27/2014 pain, limb 07/11/2014 follow up 05/23/2014 [facility] fwup high blood pressure 03/20/2014 injection(s) [...] Diagnosis: Mixed hyperlipidemia[ICD10: E78.2] Vikki CIDER DO [facility] CPT-4: 61605 01/23/2019 ([id number]) NURSE/OUTPATIENT VISIT EST Diagnosis: FLU VACCINE[ICD10: Z23] Vikki PIKE SSujata PECKND ER DO [facility] CPT-4: 83564 12/26/2018 ([id number]) NURSE/OUTPATIENT VISIT EST Diagnosis: Chronic kidney disease, stage 1[ICD10: N18.1] Vikki CIDER DO [facility] CPT-4: 90501 12/15/2018 ([id number]) OFFICE/OUTPATIENT VISIT EST Diagnosis: Acute serous otitis media, left ear[ICD10: H65.02] Jennifer GUAMAN [facility] CPT-4: 37206 11/07/2018 ([id number]) OFFICE/OUTPATIENT VISIT EST Diagnosis: Essential (primary) hypertension[ICD10: I10] Diagnosis: 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] Diagnosis: Hypoglycemia, unspecified[ICD10: E16.2] Diagnosis: Other fatigue[ICD10: R53.83] Diagnosis: Urinary tract infection, site not specified[ICD10: N39.0] Vikki GUAMAN [facility] CPT-4: 03776 08/14/2018 ([id number]) OFFICE/OUTPATIENT VISIT EST Diagnosis: Essential (primary) hypertension[ICD10: I10] Diagnosis: Gastro-esophageal reflux disease without esophagitis[ICD10: K21.9] Diagnosis: Urinary tract infection, site not specified[ICD10: N39.0] Vikki GUAMAN [facility] CPT-4: 26944 05/10/2018 ([id number]) OFFICE/OUTPATIENT VISIT EST Diagnosis: Gastro-esophageal reflux disease without esophagitis[ICD10: K21.9] Diagnosis: Epigastric pain[ICD10: R10.13] Vikki GUAMAN [facility] CPT-4: 23523 02/14/2018 ([id number]) OFFICE/OUTPATIENT VISIT EST 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] Diagnosis: Essential (primary) hypertension[ICD10: I10] Diagnosis: Generalized anxiety disorder[ICD10: F41.1] Diagnosis: Gastro-esophageal reflux disease without esophagitis[ICD10: K21.9] Vikki GUAMAN [facility] CPT-4: 56430 01/10/2018 OFFICE/OUTPATIENT VISIT EST Diagnosis: Gastro-esophageal reflux disease without esophagitis[ICD10: K21.9] Diagnosis: Palpitations[ICD10: R00.2] Diagnosis: Urinary tract infection, site not specified[ICD10: N39.0] Diagnosis: Generalized anxiety disorder[ICD10: F41.1] Vikki GUAMAN [facility] CPT-4: 69084 12/06/2017 ([id number]) NURSE/OUTPATIENT VISIT EST Diagnosis: 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] Diagnosis: Hypoglycemia, unspecified[ICD10: E16.2] Diagnosis: Dizziness and giddiness[ICD10: R42] Diagnosis: Occlusion and stenosis of bilateral carotid arteries[ICD10: I65.23] Vikki GUAMAN [facility] CPT-4: 19544 11/30/2017 OFFICE/OUTPATIENT VISIT EST Diagnosis: Epigastric pain[ICD10: R10.13] Diagnosis: Generalized anxiety disorder[ICD10: F41.1] Diagnosis: FLU VACCINE[ICD10: Z23] Vikki BALL [facility] CPT-4: 06445 11/22/2017 ([id number]) OFFICE/OUTPATIENT VISIT EST Diagnosis: Essential (primary) hypertension[ICD10: I10] Diagnosis: Hypoglycemia, unspecified[ICD10: E16.2] Diagnosis: Gastro-esophageal reflux disease without esophagitis[ICD10: K21.9] Vikki GUAMAN [facility] CPT-4: 06918 10/20/2017 ([id number]) OFFICE/OUTPATIENT VISIT EST Diagnosis: Dizziness and giddiness[ICD10: R42] Jennifer GUAMAN [employer] CPT-4: 90561 09/27/2017 ([id number]) OFFICE/OUTPATIENT VISIT EST Diagnosis: Cervicalgia[ICD10: M54.2] Diagnosis: Other spondylosis with radiculopathy, cervical region[ICD10: M47.22] Vikki GUAMAN [facility] CPT-4: 71073 08/16/2017 ([id number]) OFFICE/OUTPATIENT VISIT EST Diagnosis: Hypoglycemia, unspecified[ICD10: E16.2] Diagnosis: Other spondylosis with radiculopathy, cervical region[ICD10: M47.22] Diagnosis: Vertigo of central origin, 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] Diagnosis: 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] Vikki KEARNEYAKUA RobertsSujata DENIZ [facility] CPT-4: 29423 07/07/2017 ([id number]) OFFICE/OUTPATIENT VISIT EST Diagnosis: Benign paroxysmal vertigo, bilateral[ICD10: H81.13] Diagnosis: Otalgia, bilateral[ICD10: H92.03] Jennifer Rosario ROMMELJEANNA RobertsSujata [facility] CPT-4: 83330 05/30/2017 ([id number]) OFFICE/OUTPATIENT VISIT EST Diagnosis: Low back pain[ICD10: M54.5] Diagnosis: Radiculopathy, lumbosacral region[ICD10: M54.17] Diagnosis: Left lower quadrant pain[ICD10: R10.32] Vikki CRISOSTOMO [facility]jata [facility] C[facility]: 05299 04/18/2017 ([id number]) OFFICE/OUTPATIENT VISIT EST Diagnosis: FLU VACCINE[ICD10: Z23] Vikki PIKE AlejandraSujata PAL[facility] CPT-4: 67690 12/10/2016 ([id number]) OFFICE/OUTPATIENT VISIT EST Diagnosis: Mixed hyperlipidemia[ICD10: E78.2] Diagnosis: Essential (primary) hypertension[ICD10: I10] 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] Diagnosis: Impaired fasting glucose[ICD10: R73.01] Diagnosis: Other fatigue[ICD10: R53.83] Vikki PIKE AlejandraSujata [facility] CPT-4: 88409 11/01/2016 ([id number]) OFFICE/OUTPATIENT VISIT EST Diagnosis: Pain in thoracic spine[ICD10: M54.6] Diagnosis: Other intervertebral disc degeneration, 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] Vik[facility]: 60273 10/25/2016 ([id number]) OFFICE/OUTPATIENT VISIT EST Diagnosis: Left lower quadrant pain[ICD10: R10.32] Diagnosis: Low back pain[ICD10: M54.5] Vikki [facility] CPT-4: 62838 09/20/2016 ([id number]) OFFICE/OUTPATIENT VISIT EST Diagnosis: Mixed hyperlipidemia[ICD10: E78.2] Diagnosis: Essential (primary) hypertension[ICD10: I10] Diagnosis: Hypoglycemia, unspecified[ICD10: E16.2] Vikki Deniz [facility] CPT-4: 43065 05/13/2016 ([id number]) OFFICE/OUTPATIENT VISIT EST Diagnosis: Impaired fasting glucose[ICD10: R73.01] Diagnosis: Mastodynia[ICD10: N64.4] Diagnosis: Mixed hyperlipidemia[ICD10: E78.2] Diagnosis: Essential (primary) hypertension[ICD10: I10] Diagnosis: Other fatigue[ICD10: R53.83] Vikkikranthi Guaman VIKKI AlejandraSujata [facility] CPT-4: 06487 05/12/2016 ([id number]) OFFICE/OUTPATIENT VISIT EST Diagnosis: Acute upper respiratory infection, unspecified[ICD10: J06.9] Yue KEARNEYQUELINE AlejandraSujata [facility] CPT-4: 45979 03/18/2016 ([id number]) OFFICE/OUTPATIENT VISIT EST Diagnosis: Acute mastoiditis without complications, right ear[ICD10: H70.001] Vikki Ciscofunmilayosakshi CORTEZVIKKI AlejandraSujata [facility] CPT-4: 64023 02/06/2016 ([id number]) OFFICE/OUTPATIENT VISIT EST Diagnosis: FLU VACCINE[ICD10: Z23] Vikki Ciscofunmilayosakshi CORTEZVIKKI Alyssa [facility] CPT-4: 13440 12/12/2015 ([id number]) OFFICE/OUTPATIENT VISIT EST Diagnosis: Mixed hyperlipidemia[ICD10: E78.2] Diagnosis: Essential (primary) hypertension[ICD10: I10] 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] Diagnosis: Impaired fasting glucose[ICD10: R73.01] Vikki KEARNEY CHILANGOLUTHER AlejandraSujata [facility] CPT-4: 80425 11/25/2015 ([id number]) OFFICE/OUTPATIENT VISIT EST Diagnosis: Constipation, unspecified[ICD10: K59.00] Vikki PIKE AlejandraSujata [facility] CPT-4: 76241 08/26/2015 ([id number]) OFFICE/OUTPATIENT VISIT EST Diagnosis: Essential (primary) hypertension[ICD10: I10] Diagnosis: Mixed hyperlipidemia[ICD10: E78.2] Diagnosis: Chronic kidney disease, stage 1[ICD10: N18.1] Vikki [facility] CPT-4: 80967 05/21/2015 ([id number]) OFFICE/OUTPATIENT VISIT EST Diagnosis: Muscle weakness (generalized)[ICD10: M62.81] Diagnosis: Dizziness and giddiness[ICD10: R42] Diagnosis: Essential (primary) hypertension[ICD10: I10] Diagnosis: History of falling[ICD10: Z91.81] Vikki [facility] CPT-4: 70381 02/19/2015 ([id number]) OFFICE/OUTPATIENT VISIT EST Diagnosis: FLU VACCINE[ICD10: Z23] Vikki [facility] CPT-4: 17297 12/20/2014 ([id number]) OFFICE/OUTPATIENT VISIT EST Diagnosis: Acute renal failure[ICD9: 584.9] Diagnosis: POLYURIA[ICD9: 788.42] Vikki Rees [facility] CPT-4: 84145 11/19/2014 ([id number]) OFFICE/OUTPATIENT VISIT EST Diagnosis: HYPERLIPIDEMIA NEC/NOS[ICD9: 272.4] Diagnosis: HYPERTENSION[ICD9: 401.9] Diagnosis: CAD[ICD9: 414.00] Diagnosis: Hyperglycemia[ICD9: 790.29] Diagnosis: MALAISE AND FATIGUE[ICD9: 780.79] Vikki [facility] CPT-4: 34923 11/14/2014 ([id number]) OFFICE/OUTPATIENT VISIT EST Diagnosis: MALAISE AND FATIGUE[ICD9: 780.79] Diagnosis: HYPOGLYCEMIA[ICD9: 251.2] Diagnosis: Grieving[ICD9: 309.0] Diagnosis: ABDOMINAL PAIN[ICD9: 789.00] Vikki [facility] CPT-4: 18844 11/13/2014 OFFICE/OUTPATIENT VISIT EST Diagnosis: CERUMEN IMPACTION[ICD9: 380.4] Diagnosis: EUSTACHIAN TUBE DYSFUNCTION[ICD9: 381.81] Jessenia [facility] CPT-4: 91001 09/27/2014 ([id number]) OFFICE/OUTPATIENT VISIT EST Diagnosis: Leg pain[ICD9: 729.5] Diagnosis: SUPERFIC PHLEBITIS-LEG[ICD9: 451.0] Vikki [facility] [place] CPT-4: 66843 07/11/2014 ([id number]) OFFICE/OUTPATIENT VISIT EST Diagnosis: Thoracic back pain[ICD9: 724.1] Diagnosis: SPASM OF MUSCLE[ICD9: 728.85] Vikki [facility]AN [facility] CPT-4: 11100 05/23/2014 ([id number]) OFFICE/OUTPATIENT VISIT EST Diagnosis: DIZZINESS/VERTIGO[ICD9: 780.4] Diagnosis: Benign positional vertigo[ICD9: 386.11] Diagnosis: HYPERTENSION[ICD9: 401.9] Diagnosis: Suspicious nevus[ICD9: 238.2] Vikki [facility] CPT-4: 07524 03/20/2014 ([id number]) OFFICE/OUTPATIENT VISIT EST Diagnosis: FLU VACCINE[ICD10: Z23] Vikki CID [facility] CPT-4: 86452 12/21/2013 OFFICE/OUTPATIENT VISIT EST Diagnosis: SINUSITIS, ACUTE[ICD9: 461.9] Diagnosis: EUSTACHIAN TUBE DYSFUNCTION[ICD9: 381.81] Jessenia [facility] CPT-4: 48435 10/17/2013 ([id number]) OFFICE/OUTPATIENT VISIT EST Diagnosis: DIZZINESS/VERTIGO[ICD9: 780.4] Diagnosis: HYPERTENSION[ICD9: 401.9] Vikki [facility] CPT-4: 30711 09/24/2013 ([id number]) OFFICE/OUTPATIENT VISIT EST Diagnosis: HYPERTENSION[ICD9: 401.9] Diagnosis: MALAISE AND FATIGUE[ICD9: 780.79] Diagnosis: SINUSITIS, ACUTE[ICD9: 461.9] Vikki [facility] CPT-4: 01111 05/31/2013 ([id number]) OFFICE/OUTPATIENT VISIT EST Diagnosis: HYPERLIPIDEMIA NEC/NOS[ICD9: 272.4] Diagnosis: HYPERTENSION[ICD9: 401.9] Diagnosis: B12 DEFIC ANEMIA NEC[ICD9: 281.1] Diagnosis: HYPOGLYCEMIA[ICD9: 251.2] Vikki Deniz [facility] CPT-4: 04274 03/28/2013 OFFICE/OUTPATIENT VISIT EST Diagnosis: COUGH[ICD9: 786.2] Jessenia [facility] CPT-4: 74668 03/26/2013 OFFICE/OUTPATIENT VISIT EST Diagnosis: COUGH[ICD9: 786.2] Diagnosis: URI, ACUTE[ICD9: 465.9] Jessenia BALL [facility] CPT-4: 44097 12/19/2012 ([id number]) OFFICE/OUTPATIENT VISIT EST Diagnosis: HYPERTENSION[ICD9: 401.9] Diagnosis: CEPHALGIA[ICD9: 784.0] Diagnosis: ANXIETY STATE NOS[ICD9: 300.00] Diagnosis: FLU VACCINE[ICD9: V04.81] [facility]: 93346 11/27/2012 ([id number]) OFFICE/OUTPATIENT VISIT EST Diagnosis: DIZZINESS/VERTIGO[ICD9: 780.4] Diagnosis: SINUSITIS, ACUTE[ICD9: 461.9] Diagnosis: Benign positional vertigo[ICD9: 386.11] Vikkiluther Guaman CAIO KEELUTHER Alyssa [facility]AN [facility] CPT-4: 91251 10/04/2012 OFFICE/OUTPATIENT VISIT EST Diagnosis: OTITIS MEDIA NOS[ICD9: 382.9] Vikki Ciscofunmilayosakshi [facility] CPT-4: 64716 07/27/2012 OFFICE/OUTPATIENT VISIT EST Diagnosis: Perforation of ear drum[ICD9: 384.20] Diagnosis: SINUSITIS, ACUTE[ICD9: 461.9] Vikki Guaman VIKKI [facility]a [facility]: 24825 07/14/2012 ([id number]) OFFICE/OUTPATIENT VISIT EST Diagnosis: Mastalgia[ICD9: 611.71] Vikki BALL [facility] CPT-4: 15019 06/08/2012 ([id number]) OFFICE/OUTPATIENT VISIT EST Diagnosis: HYPERLIPIDEMIA NEC/NOS[ICD9: 272.4] Diagnosis: HYPERTENSION[ICD9: 401.9] Diagnosis: DIZZINESS/VERTIGO[ICD9: 780.4] Diagnosis: Hyperglycemia[ICD9: 790.29] Diagnosis: MALAISE AND FATIGUE[ICD9: 780.79] Vikki Peckbhavya ROMMEL E SSujata DENIZ [facility] CPT-4: 87221 02/23/2012 ([id number]) OFFICE/OUTPATIENT VISIT EST Diagnosis: EUSTACHIAN TUBE DYSFUNCTION[ICD9: 381.81] Diagnosis: DIZZINESS/VERTIGO[ICD9: 780.4] Diagnosis: ABDOMINAL PAIN[ICD9: 789.00] Diagnosis: GERD[ICD9: 530.81] Diagnosis: CERUMEN IMPACTION[ICD9: 380.4] Vikki Peckfunmilayosakshi CORTEZVIKKI Alejandra Sujata DEN[facility] CPT-4: 15801 02/22/2012 OFFICE/OUTPATIENT VISIT EST Diagnosis: ABDOMINAL PAIN[ICD9: 789.00] Diagnosis: DYSPEPSIA[ICD9: 536.8] Vikki CORTEZLINE AlejandraSujata MATY Negrita [facility] CPT-4: 59151 12/28/2011 ([id number]) OFFICE/OUTPATIENT VISIT EST Diagnosis: ABDOMINAL PAIN[ICD9: 789.00] Diagnosis: DYSPEPSIA[ICD9: 536.8] Diagnosis: IBS[ICD9: 564.1] Vikki Deniz KEARNEYQUELINE AlejandraSujata DENIZ [facility] CPT - 4: 40895 12/15/2011 OFFICE/OUTPATIENT VISIT EST Diagnosis: DIZZINESS/VERTIGO[ICD9: 780.4] Diagnosis: HYPOGLYCEMIA[ICD9: 251.2] Vikki Ciscobhavya PIKE AlejandraSujata CISCO [facility] CPT-4: 69336 09/21/2011 ([id number]) OFFICE/OUTPATIENT VISIT EST Diagnosis: URINARY TRACT INFECTION[ICD9: 599.0] Vikki BRAVO AlejandraSujata DENIZ [facility] CPT-4: 21770 09/16/2011 ([id number]) OFFICE/OUTPATIENT VISIT EST Diagnosis: HYPERLIPIDEMIA NEC/NOS[ICD9: 272.4] Diagnosis: HYPERTENSION[ICD9: 401.9] Diagnosis: MALAISE AND FATIGUE[ICD9: 780.79] Diagnosis: DIZZINESS/VERTIGO[ICD9: 780.4] Vikki GUAMAN [employer] [facility] CPT-4: 51344 09/15/2011 ([id number]) OFFICE/OUTPATIENT VISIT EST Diagnosis: DIZZINESS/VERTIGO[ICD9: 780.4] Diagnosis: MALAISE AND FATIGUE[ICD9: 780.79] Diagnosis: HYPERTENSION[ICD9: 401.9] Vikki MARTINEZ [employer] [facility] CPT-4: 08592 09/13/2011 OFFICE/OUTPATIENT VISIT EST Diagnosis: LUMB/LUMBOSAC DISC DEGEN[ICD9: 722.52] Diagnosis: Radiculopathy of leg[ICD9: 724.4] Diagnosis: 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] Diagnosis: SPINAL ENTHESOPATHY[ICD9: 720.1] Vikki GUAMAN [employer] [facility] CPT-4: 95593 08/16/2011 ([id number]) OFFICE/OUTPATIENT VISIT EST Diagnosis: PAIN, LOWER BACK[ICD9: 724.2] Diagnosis: SPASM OF MUSCLE[ICD9: 728.85] Diagnosis: SCIATICA[ICD9: 724.3] Diagnosis: Lumbar degenerative disc disease[ICD9: 722.52] Vikki GUAMAN [employer] [facility] CPT-4: 16268 08/03/2011 ([id number]) OFFICE/OUTPATIENT VISIT EST Diagnosis: PAIN IN THORACIC SPINE[ICD9: 724.1] Diagnosis: SPASM OF MUSCLE[ICD9: 728.85] Vikki GUAMAN [employer] [facility] CPT-4: 59000 07/26/2011 ([id number]) OFFICE/OUTPATIENT VISIT EST Diagnosis: PAIN, LOWER BACK[ICD9: 724.2] Diagnosis: SPASM OF MUSCLE[ICD9: 728.85] Diagnosis: Sacroiliac dysfunction[ICD9: 739.4] Diagnosis: Lumbar degenerative disc disease[ICD9: 722.52] Vikki PECKNDER [facility] CPT-4: 97059 06/28/2011 OFFICE/OUTPATIENT VISIT EST Diagnosis: MALAISE AND FATIGUE[ICD9: 780.79] Diagnosis: HYPOTENSION[ICD9: 458.9] Diagnosis: CAD[ICD9: 414.00] Vikki CIDER [facility] CPT-4: 57455 03/31/2011 OFFICE/OUTPATIENT VISIT EST Diagnosis: SINUSITIS, ACUTE[ICD9: 461.9] Diagnosis: PHARYNGITIS, ACUTE[ICD9: 462] Diagnosis: CERUMEN IMPACTION[ICD9: 380.4] Vikki GUAMAN DO [facility] CPT-4: 87570 02/11/2011 OFFICE/OUTPATIENT VISIT EST Diagnosis: PAIN IN THORACIC SPINE[ICD9: 724.1] Diagnosis: GERD[ICD9: 530.81] Diagnosis: DIZZINESS/VERTIGO[ICD9: 780.4] Vikki PECKNDER [facility] CPT-4: 13084 10/15/2010 OFFICE/OUTPATIENT VISIT EST Vikki PECK NDER DO [facility] CPT- 4: 64661 09/29/2010 ([id number]) OFFICE/OUTPATIENT VISIT EST Vikki PATHAK SSujata [facility] CPT-4: 07131 07/02/2010 ([id number]) OFFICE/OUTPATIENT VISIT, EST Diagnosis: PAIN, LOWER BACK[ICD9: 724.2] Vikki Deniz PIKE SSujata [facility] CPT-4: 17515 04/06/2010 ([id number]) OFFICE/OUTPATIENT VISIT, EST Vikki KEELUTHER SSujata [facility] CPT-4: 39942 04/01/2010 ([id number]) OFFICE/OUTPATIENT VISIT, EST Vikki Guaman CAIO KRANTHI SSujata [facility] CPT-4: 84845 01/22/2010 ([id number]) OFFICE/OUTPATIENT VISIT, EST Vikkikranthi Peckfunmilayosakshi CAIO CHILANGOLUTHER Alyssa [facility] CPT-4: 82987 12/02/2009 ([id number]) OFFICE/OUTPATIENT VISIT, BRYAN Shah [facility] CPT-4: 95618 10/21/2009 ([id number]) OFFICE/OUTPATIENT VISIT, BRYAN CRISOSTOMO SSujata [facility] CPT-4: 09087 09/10/2009 ([id number]) OFFICE/OUTPATIENT VISIT, BRYAN CRISOSTOMO SSujata [facility] CPT-4: 77868 08/11/2009 ([id number]) OFFICE/OUTPATIENT VISIT, BRYAN Shah [facility] CPT-4: 28108 06/09/2009 Plan of Care Planned Activity Notes Codes Status Date Appointment: Vikki Guaman WPtel: [address] [place] [address] LAB 01/23/2019 Appointment: Vikki Guaman WPtel: [address] [place] [address] US INJECTION 12/26/2018 Patient Education: INFLUENZA VACCINE CDC Completed 12/26/2018 Appointment: Vikki Guaman WPtel: [address] [place] [address] LAB 12/15/2018 Visit Diagnosis Plan: Acute serous [...] ICD-10 : H65.02 11/07/2018 Appointment: Jennifer Rosario [address] [place] [address] ACUTE ILLNESS 11/07/2018 Visit Diagnosis Plan: Other [...] 599.0 ICD-10 : N39.0 08/14/2018 Appointment: Vikki Guamantel: [address] [place], [place] [phone] US FOLLOW UP 08/14/2018 Visit Diagnosis Plan: [...] : I10 05/10/2018 Appointment: Vikki Guaman WPtel: [address] [place], [place] [address] US FOLLOW UP 05/10/2018 Patient Education: metoprolol tartrate- OptimizeRX [facility] [phone] [email or web address] Completed 05/10/2018 Appointment: Vikki Guaman WPtel: [address] [place], [place] [id number] [place] CANCELED 04/21/2018 Visit Diagnosis Plan: Gastro-esophageal reflux disease without esophagitis Discussion: Continue protonix and carafate Proceed with updated EGD ICD-9 : 530.81 ICD-10 : K21.9 02/14/2018 Visit Diagnosis Plan: Epigastric pain Discussion: [facility] CT abdomen/pelvis due to ongoing abdominal pain ICD-9 : 789.06 ICD-10 : R10.13 02/14/2018 Appointment: Vikki [facility]aman [facility] [phone] [facility] [place] FOLLOW UP 02/14/2018 Care Plan: CT PELVIS W/O DYE LOINC : 361 08-9 Pending 02/14/2018 Care Plan: CT ABDOMEN W/O DYE LOINC : 36 103-0 Pending 02/14/2018 Care Plan: Referral Order SNOMED-CT : 30 [id number] Pending 02/14/2018 Visit Diagnosis Plan: 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 Discussion: S/P [...] : I10 01/10/2018 Appointment: Vikki Guaman [facility]Ptel: [facility] [place] FOLLOW UP 01/10/2018 Visit Diagnosis Plan: [...] : R00.2 12/06/2017 Appointment: Vikki Guaman WPtel: [address] [place] [address] FOLLOW UP 12/06/2017 Patient Education: Patient Medication Summary Completed 12/06/2017 Appointment: Vikki Guaman WPtel: [address] [place] [address] LAB 11/30/2017 Patient Education: Patient Medication Summary [...] : F41.1 11/22/2017 Appointment: Vikki Guaman WPtel: [address] [place] [address] FOLLOW UP 11/22/2017 Patient Education: Patient Medication [...] : K21.9 10/20/2017 Appointment: Vikki Guaman WPtel: [address] [place] [address] ACUTE ILLNESS 10/20/2017 Patient Education: Patient Medication Summary Completed 10/20/2017 Visit Diagnosis Plan: Dizziness and giddiness Discussi on: blood work to be completed in office including cmp, cbc, troponin to rule out glucose intolerance, infection, dehydration. 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 brown's office. will have front office make appt. patient has carotid doppler annually. ICD-9 : 780.4 ICD-10 : R42 09/27/2017 Appointment: Jennifer Rosario [address] [place] [address] ACUTE ILLNESS 09/27/2017 Patient Education: Patient Medication Summary Completed 09/27/2017 Visit Diagnosis Plan: Cervicalgia Discussion: Complete course of PT since symptoms improved Continue stretching exercises Notify if symptoms return or worsen ICD-9 : 723.1 ICD-10 : M54.2 08/16/2017 Appointment: Vikki Guaman WPtel: [address] [place], [place] [phone] FOLLOW UP 08/16/2017 Patient Education: [...] H81.43 07/07/2017 Appointment: Vikki Guaman WPtel: [facility] 07/07/2017 Patient Education: Patient Medication Summary Completed 07/07/2017 Care Plan: MRI NECK SPINE W/O DYE LOINC : 06521-3 Pending 07/07/2017 Visit Diagnosis Plan: Otalgia, bilateral [...] ICD-10 : H81.13 05/30/2017 Appointment: Jennifer Rosario [address] [place] [address] ACUTE ILLNESS 05/30/2017 Patient Education: Patient Medication [...] M54.17 04/18/2017 Appointment: Vikki Guaman WPtel: [address] [place] [address] ACUTE ILLNESS 04/18/2017 Patient Education: Patient Medication Summary Completed 04/18/2017 Appointment: Vikki Guaman WPtel: [address] [place] [address] US INJECTION 12/10/2016 Patient Education: Patient Medication Summary Completed 12/10/2016 Appointment: Vikki Guaman WPtel: [address] [place] [address] US LAB 11/01/2016 Patient Education: Patient Medication [...] : M51.36 10/25/2016 Appointment: Vikki Guaman WPtel: [address] [place], [place] [phone] [place] FOLLOW UP 10/25/2016 Patient Education: Patient [...] : R10.32 09/20/2016 Appointment: Vikki Guaman WPtel: [address] [place], [place] [phone] ACUTE ILLNESS 09/20/2016 Patient Education: Patient Medication Summary Completed 09/20/2016 Appointment: Vikki Guaman WPtel: [address] [place] [address] US LAB 05/13/2016 Patient Education: Patient Medication [...] : N64.4 05/12/2016 Appointment: Vikki Guaman WPtel: [address] [place], [place] [phone] 05/11 confirmed `sl ACUTE ILLNESS 05/12/2016 Patient Education: Patient Medication Summary Completed 05/12/2016 Care Plan: MAMMOGRAM SCREENING LOINC : 2 6347-5 Pending 05/12/2016 Visit Diagnosis Plan: Acute upper respiratory infectio n, unspecified Discussion: Exam is reassuring Likely viral illness Supportive care reviewed and encouraged Follow up PRN ICD-9 : 465.9 ICD-10 : J06.9 03/18/2016 Appointment: Yue Moya [address] [place] [address] ACUTE ILLNESS 03/18/2016 Patient Education: Patient Medication Summary Completed 03/18/2016 Visit Plan: Supportive care. Rest, Fluid s, Tylenol/Motrin prn fever or bodyaches. Notify if worsening symptoms. 02/06/2016 Appointment: Vikki Guaman WPtel: [address] [place] [address] ACUTE ILLNESS 02/06/2016 Patient Education: Patient Medication Summary Completed 02/06/2016 Appointment: Vikki Guaman WPtel: [address] [place], [place] [phone] US INJECTION 12/12/2015 Patient Education: Patient Medication Summary Completed 12/12/2015 Appointment: Vikki Guamantel: [address] [place], [place] [phone] US LAB 11/25/2015 Patient Education: Patient Medication Summary Completed 11/25/2015 Visit Plan: Add miralax daily Use daily probiotic and metamucil and push fluids Notify if worsens/persists 08/26/2015 Appointment: Vikki Guaman WPtel: [address] [place], [place] [phone] 08/25/15 confirmed ~sl ACUTE ILLNESS 08/26/2015 Patient Education: Patient Medication Summary Completed 08/26/2015 Visit Plan: No NSAIDs Kidney function di scussed Discussed hydration Monitor lab every 4months so will check CMP, HbA1C next month 05/21/2015 Appointment: Vikki Guaman WPtel: [address] [place], [place] [address] 05/19 confirmed ~sl ACUTE ILLNESS 05/21/2015 Patient Education: Patient Medication Summary Completed 05/21/2015 Visit Plan: Vestibular exercises Refill flonase Strict low Na diet--discussed that needs to read labels Rx for walker with chair given due to muscle weakness/unsteadiness Has carotids and abdominal aorta and legs checked in March Check Chem 7 02/19/2015 Appointment: Vikki Guaman WPtel: [address] [place], [place] [phone] 02/18/15 appt confirmed cn FOLLOW UP 02/19 Patient Education: Patient Medication Summary Completed 02/19/2015 Patient Education: Vertigo Completed 1 04/22/2014 Appointment: Vikki Guaman WPtel: [address] [place], [place] [phone] US INJECTION 12/20/2014 Patient Education: Patient Medication Summary Completed 12/20/2014 Appointment: Vikki Guaman WPtel: [address] [place], [place] [phone] UA 11/19/2014 Patient Education: Patient Medication Summary Completed 11/19/2014 Referral: Edy Cheek WPtel: #1 [facility] Katerina [address] Referral Completed 11/18/2014 Appointment: Vikki Guaman WPtel: [address] [place] [address] LAB 11/14/2014 Patient Education: Patient Medication Summary Completed 11/14/2014 Visit Plan: Check CMP, CBC, TSH, Free T4 , B12, Lipids, HbA1C Discussed 6 small meals a day each with protein Would likely benefit from antidepressant Update colonoscopy 11/13/2014 Appointment: Vikki Guaman WPtel: [address] [place], [place] [phone] 11/12/14 confirmed ACUTE ILLNESS 11/13/2014 Patient Education: Patient Medication Summary Completed 11/13/2014 Visit Plan: Cerumen flush with warm wate r and peroxide - good results Resume Nasonex nasal spray daily Recommended Debrox earwax removal drops 09/27/2014 Appointment: Jessenia Francis WPtel: [address] [place] [address] ACUTE ILLNESS 09/27/2014 Patient Education: Patient Medication Summary Completed 09/27/2014 Visit Plan: Continue aspirin daily Add m eloxicam for 1week [employer] Ice Call on Tuesday07/11/2014 Appointment: Vikki Guaman WPtel: [address] [place] [address] ACUTE ILLNESS 07/11/2014 Patient Education: Patient Medication Summary Completed 07/11/2014 Visit Plan: Been using baclofen at [facility] and has helped some PT for next 2-4weeks 05/23/2014 Appointment: Vikki Guaman WPtel: [address] [place] [address] Hospital Follow Up 05/23/2014 Patient Education: Patient Medication Summary Completed 05/23/2014 Appointment: Vikki Guaman WPtel: [address] [place] [address] LAB 05/10/2014 Appointment: Vikki Guaman WPtel: [address] [place] [address] feeling better, weather - FOLLOW UP 04/07 Referral: Edy Cheek WPtel: 1 [facility]66[facility] Referral Appointment Requested 04/03/2014 Visit Plan: Continue exercise and curren t meds See surgery for removal of right arm lesion 03/20/2014 Appointment: Vikki Guaman WPtel: [address] [place] [address] FOLLOW UP 03/20/2014 Patient Education: Patient Medication Summary Completed 03/20/2014 Appointment: Vikki Guaman WPtel: [address] [place] [address] INJECTION 12/21/2013 Patient Education: Patient Medication Summary Completed 12/21/2013 Appointment: Jessenia Francis WPtel: [address] [place] [address] ACUTE ILLNESS 10/17/2013 Patient Education: Patient Medication Summary Completed 10/17/2013 Visit Plan: Discussed that likely lumbar etiology for leg weakness Will change amlodopine to low dose dyazide and see if helps legs and inner ear 09/24/2013 Appointment: Vikki Guaman WPtel: [address] [place] [address] FOLLOW UP 09/24/2013 Patient Education: Patient Medication Summary Completed 09/24/2013 Visit Plan: Ceftin and continue claritin /flonase Decrease amlodopine to 2.5mg q HS until fwup with Card due to weakness 05/31/2013 Appointment: Vikki Guaman WPtel: [address] [place] [address] ACUTE ILLNESS 05/31/2013 Patient Education: Patient Medication Summary Completed 05/31/2013 Appointment: Vikki Guaman WPtel: [address] [place] [address] LAB 03/28/2013 Patient Education: Patient Medication Summary Completed 03/28/2013 Appointment: Jessenia Francis WPtel: [address] [place] [address] ACUTE ILLNESS 03/26/2013 Patient Education: Patient Medication Summary Completed 03/26/2013 Visit Plan: Supportive care. Rest, Fluid s, Tylenol prn fever or bodyaches. Notify if worsening symptoms. Ceftin 12/19/2012 Appointment: Jessenia Francis WPtel: [address] [place] [address] ACUTE ILLNESS 12/19/2012 Patient Education: Patient Medication Summary Completed 12/19/2012 Appointment: Vikki Guaman WPtel: [address] [place] [address] CHECK 12/04/2012 Patient Education: Patient Medication Summary Completed 12/04/2012 Appointment: Vikki Guaman WPtel: [address] [place], [place] [phone] ER Follow UP 11/27/2012 Patient Education: Patient Medication Summary Completed 11/27/2012 Visit Plan: Restart flonase BID Use mecl izine 25mg q HS Vestibular exercises Claritin 10mg q AM See ENT if doesn't resolve 10/04/2012 Appointment: Vikki Guaman WPtel: [address] [place], [place] [phone] ACUTE ILLNESS 10/04/2012 Patient Education: Patient Medication Summary Completed 10/04/2012 Visit Plan: Will continue to observe 07/27/2012 Appointment: Vikki Guaman WPtel: [address] [place], [place] [phone] FOLLOW UP 07/27/2012 Patient Education: [...] recheck. 07/14/2012 Appointment: Evelyn Santos WPtel: [address] [place], [place] [phone] ACUTE ILLNESS 07/14/2012 Patient Education: Patient Medication Summary Completed 07/14/2012 Visit Plan: Decrease caffeine intake Kristin ck Bilateral Mammogram with US of left breast 06/08/2012 Appointment: Vikki Guaman WPtel: [address] [place], [place] [phone] ACUTE ILLNESS 06/08/2012 Patient Education: Patient Medication Summary Completed 06/08/2012 Appointment: Alisia Campbell WPtel: [address] [place], [place] [phone] appt scheduled 04/06 ACUTE ILLNESS 04/10/2012 Appointment: Vikki Guaman WPtel: [address] [place], [place] [phone] LAB 02/23/2012 Patient Education: Patient Medication Summary Completed 02/23/2012 Visit Plan: Continue off carafate and se e how does Continue probiotic Add Vestibular exercises and use meclizine prn Continue Nasonex Check fasting lab including CMP, Lipids, CBC, TSH, Free T4, HbA1C 02/22/2012 Appointment: Vikki Guaman WPtel: [address] [place], [place] [phone] FOLLOW UP 02/22/2012 Patient Education: Patient Medication Summary Completed 02/22/2012 Visit Plan: Continue carafate for 4more weeks at current dose then decrease to BID for 2wks then q HS 12/28/2011 Appointment: Vikki Guaman WPtel: [address] [place], [place] [phone] FOLLOW UP 12/28/2011 Patient Education: Patient Medication Summary Completed 12/28/2011 Visit Plan: Continue omeprazole Add Judi fate 1gm po q AC Add daily probiotic 12/15/2011 Appointment: Vikki Guaman WPtel: [address] [place], [place] [phone] ACUTE ILLNESS 12/15/2011 Patient Education: Patient Medication Summary Completed 12/15/2011 Appointment: Vikki Guaman WPtel: [address] [place], [place] [phone] US INJECTION 12/02/2011 Patient Education: Patient Medication Summary Completed 12/02/2011 Visit Plan: Diabetic Diet Accuchecks BID alternating times Hold onglyza and Januvia for now and continue diet and exercise and weight loss and lana BAPTISTE Discussed hypoglycemia and snack of peanut butter and crackers with juice or milk 09/21/2011 Appointment: Vikki Guaman WPtel: [address] [place], [place] [phone] WORK IN 09/21/2011 Patient Education: Patient Medication Summary Completed 09/21/2011 Appointment: Vikki Guaman WPtel: [address] [place] [address] 09/16/2011 Patient Education: Patient Medication Summary Completed 09/16/2011 Appointment: Vikki Guaman WPtel: [address] [place] [address] 09/15/2011 Patient Education: Patient Medication Summary Completed 09/15/2011 Appointment: Vikki Guaman WPtel: [address] [place] [address] ACUTE ILLNESS 09/13/2011 Patient Education: Patient Medication Summary Completed 09/13/2011 Visit Plan: Injection to Right SI joint as above Pt will call in 3 days on pain Has PT starting in 2wks. 08/16/2011 Appointment: Vikki Guaman WPtel: [address] [place] [address] ACUTE ILLNESS 08/16/2011 Patient Education: Patient Medication Summary Completed 08/16/2011 Visit Plan: OMT done Start PT May need u pdated MRI if need to consider epidural Prednisone 08/03/2011 Appointment: Vikki Guaman WPtel: [address] [place] [address] OMT 08/03/2011 Patient Education: Patient Medication Summary Completed 08/03/2011 Visit Plan: Flexeril and Vimovo OMT done Daily stretches 07/26/2011 Appointment: Vikki Guaman WPtel: [address] [place] [address] ACUTE ILLNESS 07/26/2011 Patient Education: Patient Medication Summary Completed 07/26/2011 Visit Plan: OMT done Daily stretches Roque st heat or biofreeze Right SI joint injection Call in 1week Vimovo BID 06/28/2011 Appointment: Vikki Guaman WPtel: [address] [place] [address] ACUTE ILLNESS 06/28/2011 Patient Education: Patient Medication Summary Completed 06/28/2011 Appointment: Vikki Guamantel: [address] [place], [place] [phone] LAB 04/01/2011 Patient Education: Patient Medication Summary Completed 04/01/2011 Visit Plan: Decrease amlodopine to 1.25m g daily Schedule with Cardiology Fasting lab in AM 03/31/2011 Appointment: Vikki Guaman WPtel: [address] [place], [place] [phone] ACUTE ILLNESS 03/31/2011 Patient Education: Patient Medication Summary Completed 03/31/2011 Visit Plan: Saline nasal flushes prn. Ty lenol/Motrin prn headache. Notify if persists/symptoms worsening. Cerumen removal from ears as above 02/11/2011 Appointment: Vikki Guaman WPtel: [address] [place] [address] ACUTE ILLNESS 02/11/2011 Patient Education: Patient Medication Summary Completed 02/11/2011 Appointment: Vikki Guaman WPtel: [address] [place] [address] [place] INJECTION 12/09/2010 Patient Education: Patient Medication Summary Completed 12/09/2010 Visit Plan: Continue vimovo for 1more we ek Increase Omeprazole to BID for 1mo then resume QD if stomach improved Vestibular exercises with meclizine q HS for next week 10/15/2010 Appointment: Vikki Guaman WPtel: [address] [place], [place] [phone] FOLLOW UP 10/15/2010 Patient Education: Patient Medication Summary Completed 10/15/2010 Appointment: Vikki Guaman WPtel: [address] [place] [address] ACUTE ILLNESS 09/29/2010 Patient Education: Patient Medication Summary Completed 09/29/2010 Appointment: Vikki Guaman WPtel: [address] LAB 07/06/2010 Patient Education: Patient Medication Summary Completed 07/06/2010 Visit Plan: Saline nasal flushes prn. Ty lenol/Motrin prn headache. Notify if persists/symptoms worsening. Add Veramyst Increase Omeprazole to 20mg po BID 07/02/2010 Appointment: Vikki Guaman WPtel: [address] [place] [address] ACUTE ILLNESS 07/02/2010 Patient Education: Patient Medication Summary Completed 07/02/2010 Appointment: Vikki Guaman WPtel: [address] [place] [address] FOLLOW UP 04/06/2010 Patient Education: Patient Medication Summary Completed 04/06/2010 Appointment: Vikki Guaman WPtel: [address] [place] [address] ACUTE ILLNESS 04/01/2010 Patient Education: Patient Medication Summary Completed 04/01/2010 Visit Plan: Nasocourt sample given. Pt. will notify if symptoms are worse on Tuesday. 01/22/2010 Appointment: Alisia Campbell WPtel: [address] [place] [address] ACUTE ILLNESS 01/22/2010 Patient Education: Patient Medication Summary Completed 01/22/2010 Appointment: Vikki Guaman WPtel: [address] [place], [place] [phone] [place] INJECTION 12/10/2009 Patient Education: Patient Medication Summary Completed 12/10/2009 Appointment: Vikki Guaman WPtel: [address] [place] [address] FOLLOW UP 12/02/2009 Patient Education: Patient Medication Summary Completed 12/02/2009 Patient Education: Lexapro Completed 0 12/02/2009 Visit Plan: May proceed with hiatal ryan ia repair per Card. so will contact Dr. Mariscal's office to proceed with surgery Trial of Lexapro 5mg QD plus use xanax prn 10/21/2009 Appointment: Vikki Guaman WPtel: [address] [place] [address] FOLLOW UP 10/21/2009 Patient Education: Patient Medication Summary Completed 10/21/2009 Visit Plan: B12 given Cont oral B12 and iron Fwup 1mo for B12 Proceed with hiatal hernia repair once card clearance 09/10/2009 Appointment: Vikki Guaman WPtel: [address] [place] [address] FOLLOW UP 09/10/2009 Patient Education: Patient Medication Summary Completed 09/10/2009 Appointment: Vikki Guaman WPtel: [address] [place] [address] FOLLOW UP 08/11/2009 Patient Education: Patient Medication Summary Completed 08/11/2009 Appointment: Vikki Guaman WPtel: [address] [place] [address] [place] LAB 06/10/2009 Patient Education: Patient Medication Summary Completed 06/10/2009 Visit Plan: Check fasting lab in AM--CMP ,Lipids, CBC, Vit D, TSH,FreeT4, B12 06/09/2009 Appointment: Vikki Guaman WPtel: [address] [place] [address] FOLLOW UP 06/09/2009 Patient Education: Patient Medication Summary Completed 06/09/2009 Referral: Edy Cheek WPtel: [address] [place] [phone] [place] Referral Appointment Requested Referral: Edy Cheek WPtel: [address] Referral Initiated Instructions Comment . Supportive [...]
--- OUTSIDE RECORDS SUMMARY | 2019-04-25 20:42 | XMS REPORT | CCD ---
Author Author Evelyne Guaman D.O. Organization [facility] Address [address] [place] [address] Phone Care Team Providers Care Commission Clerk Name Role Phone Vikki Guaman D.O. PP Unavailable CCM Unavailable Summary Purpose Interface Exchange Insurance Providers Payer name Policy type / Coverage type Covered green party ID Effective Begin Date Effective End Date WPS MEDICARE PART B [place] Medicare Part B [id number] 2017 Unknown Aetna [facility] Medicare Part B [id number] Unknown Family history Father Diagnosis Age At Onset Heart disease Unknown Mother Diagnosis Age At Onset Heart disease Unknown Cancer Unknown Social History Social History Element Codes Description Effective Dates Tobacco history SNOMED CT: 521677439 Never smoker 09/29/2010 Marital status Unknown Single [...] R10.13 11/22/2017 Active 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: [...] Fill Instructions simvastatin 40 mg tablet RxNorm: 789247 1 Tablet(s) PO QD 01/22/2019 04/21/2019 Active omeprazole 40 mg capsule,delayed release RxNorm: 20020415 Capsu le(s) Oral QD 01/10/2019 07/08/2019 Active Xanax 0.25 mg tablet RxNorm: 463756 TAKE 1 TABLET BY MOUTH TWIC E DAILY 01/02/2019 No Stop Date Active omeprazole 40 mg capsule,delayed release RxNorm: 20020415 Capsu le(s) PO QD 12/11/2018 01/09/2019 Inactive metoprolol tartrate 25 mg tablet RxNorm: 751384 1 Tablet(s) PO BID 11/20/2018 05/18/2019 Active omeprazole 40 mg capsule,delayed release RxNorm: 087930 Capsu le(s) PO QD 11/13/2018 12/10/2018 Inactive Flonase Allergy Relief 50 mcg/actuation nasal spray,suspensi on RxNorm: 0165008 2 [place] NASAL QHS 11/07/2018 No Stop Date Active simvastatin 40 mg tablet RxNorm: 388530 1 Tablet(s) PO QD 10/23/2018 01/20/2019 Inactive simvastatin 40 mg tablet RxNorm: 854745 1 Tablet(s) PO QD 07/24/2018 10/21/2018 Inactive omeprazole 40 mg capsule,delayed release RxNorm: 575585 Capsu le(s) PO QD 07/13/2018 11/09/2018 Inactive simvastatin 40 mg tablet RxNorm: 122451 1 Tablet(s) PO QD 06/13/2018 07/12/2018 Inactive omeprazole 40 mg capsule,delayed release RxNorm: 400811 1 Capsu le(s) PO QD 06/13/2018 07/12/2018 Inactive Bactrim DS 800 mg-160 mg tablet RxNorm: 845702 1 Tablet(s) PO BID 0 05/12/2018 05/18/2018 Inactive Bactrim DS 800 mg-160 mg tablet RxNorm: 158797 1 Tablet(s) PO BID 0 05/12/2018 05/11/2018 Inactive Macrobid 100 mg capsule RxNorm: 762928 1 Capsule(s) PO BID 05/11/1905/16/2018 Inactive metoprolol tartrate 25 mg tablet RxNorm: 712700 1 Tablet(s) PO BID 05/10/2018 11/05/2018 Inactive Xanax 0.25 mg tablet RxNorm: 071097 TAKE 1 TABLET BY MOUTH TWIC E DAILY 02/16/2018 01/01/2019 Inactive Xanax 0.25 mg tablet RxNorm: 750625 1 Tablet(s) PO BID 02/14/2018 Inactive Protonix 40 mg tablet,delayed release RxNorm: 601048 1 Tablet(s) PO BID for stomach--replaces omeprazole 01/10/2018 05/09/2018 Inactive Carafate 1 gram tablet RxNorm: 376582 1 Tablet(s) PO AC & HS 201705/09/2018 Inactive Xanax 0.25 mg tablet RxNorm: 534713 1 Tablet(s) PO BID 01/03/201812/2017 Inactive Bactrim DS 800 mg-160 mg tablet RxNorm: 747974 1 Tablet(s) PO BID 1 12/12/2017 Inactive Bactrim DS 800 mg-160 mg tablet RxNorm: 122440 1 Tablet(s) PO BID 1 12/07/2017 Inactive Carafate 1 gram tablet RxNorm: 062134 1 Tablet(s) PO AC & HS 201712/21/2017 Inactive Protonix 40 mg tablet,delayed release RxNorm: 010771 1 Tablet(s) PO BID for stomach--replaces omeprazole 11/22/2017 01/09/2018 Inactive Protonix 40 mg tablet,delayed release RxNorm: 166673 1 Tablet(s) PO BID for stomach--replaces omeprazole 10/20/2017 11/21/2017 Inactive fluticasone 50 mcg/actuation nasal spray,suspension RxNorm: 3294836 2 [place] NASAL QD to each nostril 07/07/2017 08/13/2018 Inactive Nasonex 50 mcg/actuation [place] RxNorm: 6553713 2 [place] NASAL 201707/07/2017 Inactive omeprazole 40 mg capsule,delayed release RxNorm: 891306 1 Capsu le(s) PO QD 04/18/2017 10/19/2017 Inactive simvastatin 40 mg tablet RxNorm: 216526 1 Tablet(s) PO QD TAKE 1 TABLET EVERY DAY 04/18/2017 04/12/2018 Inactive metoprolol tartrate 25 mg tablet RxNorm: 215884 1/2 Tablet(s) PO QD 04/18/2017 01/09/2018 Inactive simvastatin 40 mg tablet RxNorm: 130611 Tablet(s) TAKE 1 TABLET EVERY DAY 10/27/2016 04/17/2017 Inactive metoprolol tartrate 25 mg tablet RxNorm: 197257 1/2 Tablet(s) PO QD 09/20/2016 03/18/2017 Inactive Flonase 50 mcg/actuation nasal spray,suspension RxNorm: 1797 933 2 [place] NASAL BID 09/20/2016 04/17/2017 Inactive omeprazole 40 mg capsule,delayed release RxNorm: 230134 1 Capsu le(s) PO QD 09/08/2016 04/17/2017 Inactive metoprolol tartrate 25 mg tablet RxNorm: 686084 1/2 Tablet(s) PO QD 06/14/2016 09/19/2016 Inactive ciprofloxacin 0.2 % ear drops in a dropperette RxNorm: 05520 6 4 Drop(s) OTIC TID for 1 week 02/06/2016 05/11/2016 Inactive cefdinir 300 mg capsule RxNorm: 213538 2 Capsule(s) PO QD 02/06/2016 02/15/2016 Inactive omeprazole 40 mg capsule,delayed release RxNorm: 244209 TAKE 1 CAPSULE EVERY DAY 11/06/2015 09/08/2016 Inactive simvastatin 40 mg tablet RxNorm: 579490 TAKE 1 TABLET EVERY DAY 05/201510/27/2016 Inactive Flonase 50 mcg/actuation nasal spray,suspension RxNorm: 1797 933 2 [place] NASAL BID 02/19/2015 09/19/2016 Inactive cefuroxime axetil 250 mg tablet RxNorm: 961278 1 Tablet(s) PO BID 0 11/21/2014 11/20/2014 Inactive cefuroxime axetil 250 mg tablet RxNorm: 252226 1 Tablet(s) PO BID 0 11/21/2014 11/27/2014 Inactive omeprazole 40 mg capsule,delayed release RxNorm: 225508 1 Capsu le(s) PO QD 10/09/2014 01/05/2015 Inactive meloxicam 7.5 mg tablet RxNorm: 641909 1 Tablet(s) PO QD 07/11/2014 0 08/09/2014 Inactive loratadine 10 mg tablet RxNorm: 114597 1 Tablet(s) PO QAM for a llergies 10/17/2013 08/13/2018 Inactive Flonase 50 mcg/actuation nasal spray,suspension RxNorm: 8963 23 2 [place] NASAL BID 10/17/2013 02/18/2015 Inactive prednisone 20 mg tablet RxNorm: 484963 2 Tablet(s) PO BID 10/17/2013 10/21/2013 Inactive Dyazide 37.5 mg-25 mg capsule RxNorm: 763111 1 Capsule(s) PO QAM 10/16/2013 Inactive Ceftin 500 mg tablet RxNorm: 954085 1 Tablet(s) PO BID 05/31/201307/2013 Inactive Ceftin 500 mg tablet RxNorm: 963717 1 Tablet(s) PO BID 03/26/2013 Inactive simvastatin 40 mg tablet RxNorm: 285144 Tablet(s) PO TA KE ONE TABLET BY MOUTH EVERY DAY 03/26/2013 10/07/2015 Inactive metoprolol tartrate 25 mg tablet RxNorm: 966842 Tablet( s) PO TAKE ONE-HALF TABLET BY MOUTH EVERY DAY 03/26/2013 11/12/2014 Inactive Ceftin 500 mg tablet RxNorm: 691693 1 Tablet(s) PO BID 12/19/2012 Inactive loratadine 10 mg tablet RxNorm: 249878 1 Tablet(s) PO QAM for a llergies 10/04/2012 12/02/2012 Inactive omeprazole 20 mg capsule,delayed release RxNorm: 540934 Capsule(s) PO TAKE ONE CAPSULE BY MOUTH TWICE DAILY 08/09/2012 10/08/2014 Inactive omeprazole 20 mg capsule,delayed release RxNorm: 449478 1 Capsu le(s) PO BID 08/09/2012 05/09/2018 Inactive Augmentin 875 mg-125 mg tablet RxNorm: 670594 1 Tablet(s) PO Q12H 0 07/14/2012 07/23/2012 Inactive Floxin Otic Drops 1 bottle Drops RxNorm: 5 Drop(s) OTIC BID 07/20/2012 Inactive metoprolol tartrate 25 mg tablet RxNorm: 982942 Tablet( s) PO TAKE ONE-HALF TABLET BY MOUTH EVERY DAY 04/11/2012 03/25/2013 Inactive simvastatin 40 mg tablet RxNorm: 457749 Tablet(s) PO TA KE ONE TABLET BY MOUTH EVERY DAY 04/11/2012 03/25/2013 Inactive lancets RxNorm: Misc Miscellaneous USE ONE TO CH JEFFERY GLUCOSE EVERY DAY 04/04/2012 05/09/2018 Inactive Carafate 1 gram tablet RxNorm: 968772 1 Tablet(s) PO AC & HS 201111/12/2014 Inactive Flagyl 500 mg tablet RxNorm: 513295 1 Tablet(s) PO TID 12/15/2011 Inactive Carafate 1 gram tablet RxNorm: 760897 1 Tablet(s) PO AC & HS 201102/12/2012 Inactive One Touch Test strips RxNorm: Miscellaneous QD 09/21/2011 05/09/2018 Inactive one touch ultra mini test strips Protonix 40 mg Tab RxNorm: 784458 1 Tablet(s) PO QD 09/13/20112011 Inactive Protonix 40 mg Tab RxNorm: 404708 1 Tablet(s) PO QD 09/13/20112011 Inactive prednisone 20 mg Tab RxNorm: 453387 1 Tablet(s) PO BID 08/03/201106/2011 Inactive Flexeril 5 mg Tab RxNorm: 600614 1 Tablet(s) PO QHS for spasm 07/2508/24/2011 Inactive Flexeril 5 mg Tab RxNorm: 158917 1 Tablet(s) PO QHS for spasm 06/2707/25/2011 Inactive amlodipine 2.5 mg Tab RxNorm: 704863 1/2 Tablet(s) PO QD replac es 5mg dose 03/31/2011 06/27/2011 Inactive simvastatin 40 mg tablet RxNorm: 498944 1 Tablet(s) PO QD 03/31/2011 03/24/2012 Inactive metoprolol tartrate 25 mg tablet RxNorm: 973052 1/2 Tablet(s) PO QD 03/31/2011 03/24/2012 Inactive omeprazole 20 mg capsule,delayed release RxNorm: 157871 1 Capsu le(s) PO BID 03/31/2011 09/12/2011 Inactive cefdinir 300 mg Cap RxNorm: 027705 2 Capsule(s) PO QD 02/11/201102/04 Inactive simvastatin 40 mg Tab RxNorm: 911870 1 Tablet(s) PO QD 02/01/2011 Inactive metoprolol tartrate 25 mg Tab RxNorm: 159963 1/2 Tablet(s) PO QD 03/30/2011 Inactive metoprolol tartrate 25 mg Tab RxNorm: 843250 1/2 Tablet(s) PO QD 12/28/2010 Inactive meclizine 25 mg Tab RxNorm: 4376908 1 Tablet(s) PO QHS 10/15/201011/2010 Inactive for dizziness Ceftin 500 mg Tab RxNorm: 475975 1 Tablet(s) PO BID 07/02/20102010 Inactive omeprazole 20 mg Cap, Delayed Release RxNorm: 351627 1 Capsule( s) PO BID 07/02/2010 12/28/2010 Inactive simvastatin 40 mg Tab RxNorm: 161738 1 Tablet(s) PO QD 06/30/201007/2018 Inactive simvastatin 40 mg Tab RxNorm: 503627 1 Tablet(s) PO QD 06/30/2010 Inactive simvastatin 40 mg Tab RxNorm: 156154 1 Tablet(s) PO QD 02/25/2010 Inactive Tessalon Perles 100 mg Cap RxNorm: 631537 1 Capsule(s) PO Q6-8H 01/28/2010 Inactive cefdinir 300 mg Cap RxNorm: 025294 1 Capsule(s) PO BID 01/22/2010 Inactive Lexapro 10 mg Tab RxNorm: 455635 1 Tablet(s) PO QD 12/02/2009 010 Inactive Cipro 250 mg Tab RxNorm: 584924 1 Tablet(s) PO BID 12/02/2009 010 Inactive Wellbutrin XL 150 mg 24 hr Tab RxNorm: 314223 1 Tablet(s) PO QAM 08/07/2009 Inactive Fish Oil 1,000 mg Cap RxNorm: 1 Capsule(s) PO QD No Start Date Active Tylenol Extra Strength 500 mg tablet RxNorm: 816922 1/2 Tablet( s) PO as needed No Start Date Active nitroglycerin 0.4 mg sublingual tablet RxNorm: 413467 Tablet(s) SL as needed No Start Date Active Calcium with Vitamin D 600 mg (1,500 mg)-400 unit tablet RxN orm: 497233 1 Tablet(s) PO QD No Start Date Active Multivitamin & Mineral Formula Tab RxNorm: 1 Tablet(s) PO QD No St art Date Active vitamin B complex capsule RxNorm: 1 Capsule(s) PO QD No Start Date Active Aspirin 81 mg Tab RxNorm: 048174 1 Tablet(s) PO QD No Start Date Active isosorbide mononitrate ER 30 mg tablet,extended release 24 h r RxNorm: 217834 1 Tablet(s) PO QHS No Start Date Active Vitamin D 1,000 unit Cap RxNorm: 064689 1 Capsule(s) PO QD No Start D ate Active Co Q-10 oral RxNorm: 28920 oral No Start Date Active metoprolol tartrate 25 mg Tab RxNorm: 662360 1/2 Tablet(s) PO QD No Start Date 12/27/2010 Inactive Nasonex 50 mcg/actuation [place] RxNorm: 1717280 2 [place] NASAL No Sta rt Date 07/06/2017 Inactive Vitamin B12 1000mcg Tablet RxNorm: 1 Tablet(s) PO QD No Start Date 11/12/2014 Inactive amlodipine 5 mg Tab RxNorm: 018546 1 Tablet(s) PO QD No Start Date Inactive simvastatin 40 mg tablet RxNorm: 804176 1 Tablet(s) PO QD No Start Date 06/12/2018 Inactive omeprazole 20 mg capsule,delayed release RxNorm: 723780 1 Capsu le(s) PO BID No Start Date 08/08/2012 Inactive omeprazole 40 mg capsule,delayed release RxNorm: 361446 1 Capsu le(s) PO QD No Start Date 06/12/2018 Inactive Nexium 40 mg Cap RxNorm: 359609 1 Capsule(s) PO QD No Start Date 01/05 Inactive Stool Softener 100 mg Tab RxNorm: 3786675 2 Tablet(s) PO BID No Sta rt Date 03/30/2011 Inactive Calcium with Vitamin D 600 mg (1,500 mg)-400 unit Tab RxNorm : 120837 1 Tablet(s) PO QD No Start Date 11/12/2014 Inactive iron 325 mg (65 mg iron) Tab RxNorm: 013828 1 Tablet(s) PO QD No St art Date 11/12/2014 Inactive Flonase 50 mcg/actuation Nasal [place] RxNorm: 983216 2 [place] DEMOND AL BID No Start Date 10/16/2013 Inactive fluticasone 50 mcg/actuation nasal spray,suspension RxNorm: 7262427 2 [place] NASAL QD to each nostril No Start Date 07/06/2017 Inactive Nasonex 50 mcg/actuation [place] RxNorm: 1878935 2 [place] NASAL QD No Start Date 07/06/2017 Inactive hydralazine 50 mg tablet RxNorm: 237784 1 Tablet(s) PO as needed for BP over 160/90 No Start Date 11/21/2017 Inactive Vimovo 500 mg-20 mg 12 hr Tab RxNorm: 951375 1 Tablet(s) PO BID No Start Date 02/10/2011 Inactive Tylenol PM 25 mg-500 mg/15 mL Oral Soln RxNorm: 3496289 1 PO QPM No Start Date 11/12/2014 Inactive Iron (Ferrous Sulfate) Oral RxNorm: Oral No Start Date 03/30/19 12 Inactive Reglan 10 mg Tab RxNorm: 226309 1 Tablet(s) PO TID before meals No Start Date 02/10/2011 Inactive Xanax 1 mg Tab RxNorm: 495552 1/2 Tablet(s) PO QD No Start Date 11/21 Inactive amlodipine 10 mg tablet RxNorm: 243762 1 Tablet(s) PO QD No Start D ate 09/23/2013 Inactive Iron (dried) Oral RxNorm: Oral No Start Date 03/30/2011 Inactiv e metoprolol tartrate 50 mg tablet RxNorm: 342357 1 Tablet(s) PO BID No Start Date 02/13/2018 Inactive Xanax 0.25 mg tablet RxNorm: 486680 1 Tablet(s) PO BID No Start Date 01/02/2018 Inactive lancets RxNorm: Miscellaneous check blood sugar at least once daily No Start Date 04/03/2012 Inactive simvastatin 40 mg Tab RxNorm: 539961 1 Tablet(s) PO QD No Start Date 02/24/2010 Inactive isosorbide mononitrate ER 30 mg tablet,extended release 24 h r RxNorm: 920518 1 Tablet(s) PO QHS No Start Date 08/13/2018 Inactive amlodipine 2.5 mg tablet RxNorm: 327021 1 Tablet(s) PO QD No Start Date 09/23/2013 Inactive sucralfate 1 gram tablet RxNorm: 067531 1 Tablet(s) PO QID No Start Date 05/09/2018 Inactive Fish Oil Oral RxNorm: Oral No Start Date 03/31/2011 Inactive Multiple Vitamin Oral RxNorm: Oral No Start Date 03/31/2011 [place] [facility] metoprolol tartrate 25 mg tablet RxNorm: 065845 1/2 Tablet(s) P O QD No Start Date 06/13/2016 Inactive metoprolol tartrate 50 mg tablet RxNorm: 348636 1/2 Tablet(s) P O BID No Start Date 05/09/2018 Inactive Flonase Allergy Relief 50 mcg/actuation nasal spray,suspensi on RxNorm: 9994874 2 [place] NASAL QHS No Start Date 11/06/2018 Inactive [...] Result Date S ervice Location GFR CALC 1460639 GFR Non Afr Amr 52 mL/min 12/15/2018 Unk nown GFR CALC [id number] GFR Afr Amr >60 mL/min 12/15/2018 Unknow n COMPREHENSIVE METABOLIC 67606 AST 17 U/L 2018 Unknown COMPREHENSIVE METABOLIC 68912 ALT 11 U/L 2018 Unknown COMPREHENSIVE METABOLIC 49560 BUN 17 mg/dL 2018 Unknown COMPREHENSIVE METABOLIC 72907 ALBUMIN 3.9 g/dL 2018 Unknown COMPREHENSIVE METABOLIC 66239 CHLORIDE 108 mmol/L 12/15 Unknown COMPREHENSIVE METABOLIC 32436 Bili Total 0.5 mg/dL 12/15 Unknown COMPREHENSIVE METABOLIC 21351 ALK PHOS 72 U/L 2018 Unknown COMPREHENSIVE METABOLIC 65501 SODIUM 142 mmol/L 12/15 Unknown COMPREHENSIVE METABOLIC 36674 CREATININE 1.02 mg/dL 12/05 Unknown COMPREHENSIVE METABOLIC 10380 CALCIUM 9.3 mg/dL 2018 Unknown COMPREHENSIVE METABOLIC 29683 POTASSIUM 4.0 mmol/L 12/15 Unknown COMPREHENSIVE METABOLIC 25708 Total Protein 6.2 g/dL Unknown COMPREHENSIVE METABOLIC 10070 Glucose 93 mg/dL 2018 Unknown COMPREHENSIVE METABOLIC 87691 Bicarbonate 27 mmol/L 12/05 Unknown COMPREHENSIVE METABOLIC 34214 AGAP 7 mmol/L 2018 Unknown GFR CALC 2106060 GFR Non Afr Amr 48 mL/min 08/14/2018 Unk nown GFR CALC 1123511 GFR Afr Amr 59 mL/min 08/14/2018 Unknown THYROID STIMULATING HORMONE 09521 TSH 1.936 uIU/mL 08/14/2018 Unknown COMPREHENSIVE METABOLIC 03637 AST 18 U/L 2018 Unknown COMPREHENSIVE METABOLIC 04896 ALT 11 U/L 2018 Unknown COMPREHENSIVE METABOLIC 67324 BUN 18 mg/dL 2018 Unknown COMPREHENSIVE METABOLIC 12268 ALBUMIN 4.2 g/dL 2018 Unknown COMPREHENSIVE METABOLIC 68283 CHLORIDE 109 mmol/L 08/14 Unknown COMPREHENSIVE METABOLIC 70459 Bili Total 0.4 mg/dL 08/14 Unknown COMPREHENSIVE METABOLIC 89707 ALK PHOS 64 U/L 2018 Unknown COMPREHENSIVE METABOLIC 85279 SODIUM 142 mmol/L 08/14 Unknown COMPREHENSIVE METABOLIC 46298 CREATININE 1.09 mg/dL 08/05 Unknown COMPREHENSIVE METABOLIC 45198 CALCIUM 9.3 mg/dL 2018 Unknown COMPREHENSIVE METABOLIC 89078 POTASSIUM 4.7 mmol/L 08/14 Unknown COMPREHENSIVE METABOLIC 58358 Total Protein 6.3 g/dL Unknown COMPREHENSIVE METABOLIC 07476 Glucose 84 mg/dL 2018 Unknown COMPREHENSIVE METABOLIC 44847 Bicarbonate 25 mmol/L 08/05 Unknown COMPREHENSIVE METABOLIC 05847 AGAP 8 mmol/L 2018 Unknown COMPLETE BLOOD COUNT [id number] WBC 7.8 10e9/L 08/15/19 19 Unknown COMPLETE BLOOD COUNT [id number] RBC 4.04 10e12/L 2018 Unknown COMPLETE BLOOD COUNT [id number] HEMOGLOBIN 12.2 g/dL 08/15/19 19 Unknown COMPLETE BLOOD COUNT [id number] HEMATOCRIT 38.6 % 08/15/19 19 Unknown COMPLETE BLOOD COUNT [id number] MCV 95.5 fL 9 Unknown COMPLETE BLOOD COUNT [id number] MCH 30.2 pg 9 Unknown COMPLETE BLOOD COUNT [id number] MCHC 31.6 g/dL 9 Unknown COMPLETE BLOOD COUNT [id number] PLATELET COUNT 215 10e9/L 12/2018 Unknown COMPLETE BLOOD COUNT [id number] Mean Plt Volume 11.2 fL 12/2018 Unknown COMPLETE BLOOD COUNT [id number] Neut Auto 45.7 % 9 Unknown COMPLETE BLOOD COUNT [id number] Lymph Auto 42.1 % 08/15/19 19 Unknown COMPLETE BLOOD COUNT [id number] [place] Auto 9.2 % 9 Unknown COMPLETE BLOOD COUNT 6070038 RDW 13.4 % 9 Unknown COMPLETE BLOOD COUNT [id number] Eos Auto 2.7 % 9 Unknown COMPLETE BLOOD COUNT [id number] Baso Auto 0.3 % 9 Unknown COMPLETE BLOOD COUNT [id number] Neutrophil Abs 3.56 10e9/L Unknown COMPLETE BLOOD COUNT [id number] Lymphocyte Abs 3.28 10e9/L Unknown COMPLETE BLOOD COUNT [id number] Monocyte Abs 0.72 10e9/L 08/05 Unknown COMPLETE BLOOD COUNT [id number] Eosinophil Abs 0.21 10e9/L Unknown COMPLETE BLOOD COUNT [id number] RDW-SD 44.9 fL 9 Unknown COMPLETE BLOOD COUNT [id number] Basophil Abs 0.02 10e9/L 08/05 Unknown COMPLETE BLOOD COUNT [id number] WBC 5.2 10e9/L 12/01/19 18 Unknown COMPLETE BLOOD COUNT [id number] RBC 4.21 10e12/L 2017 Unknown COMPLETE BLOOD COUNT [id number] HEMOGLOBIN 12.8 g/dL 12/01/19 18 Unknown COMPLETE BLOOD COUNT [id number] HEMATOCRIT 39.0 % 12/01/19 18 Unknown COMPLETE BLOOD COUNT [id number] MCV 92.6 fL 8 Unknown COMPLETE BLOOD COUNT [id number] MCH 30.4 pg 8 Unknown COMPLETE BLOOD COUNT [id number] MCHC 32.8 g/dL 8 Unknown COMPLETE BLOOD COUNT [id number] PLATELET COUNT 202 10e9/L Unknown COMPLETE BLOOD COUNT 6604144 Mean Plt Volume 10.7 fL Unknown COMPLETE BLOOD COUNT [id number] Neut Auto 40.9 % 8 Unknown COMPLETE BLOOD COUNT [id number] Lymph Auto 46.3 % 12/01/19 18 Unknown COMPLETE BLOOD COUNT 0604167 Hunt Auto 9.3 % 8 Unknown COMPLETE BLOOD COUNT [id number] RDW 13.7 % 8 Unknown COMPLETE BLOOD COUNT 6249176 Eos Auto 2.9 % 8 Unknown COMPLETE BLOOD COUNT [id number] Baso Auto 0.6 % 8 Unknown COMPLETE BLOOD COUNT [id number] Neutrophil Abs 2.13 10e9/L Unknown COMPLETE BLOOD COUNT [id number] Lymphocyte Abs 2.41 10e9/L Unknown COMPLETE BLOOD COUNT [id number] Monocyte Abs 0.48 10e9/L 11/06 Unknown COMPLETE BLOOD COUNT [id number] Eosinophil Abs 0.15 10e9/L Unknown COMPLETE BLOOD COUNT [id number] RDW-SD 45.2 fL 8 Unknown COMPLETE BLOOD COUNT [id number] Basophil Abs 0.03 10e9/L 11/06 [place] [address] Glucose 118 mg/dL 11/30 [place] [address] CREATININE 1.01 mg/dL [place] [address] BUN 14 mg/dL 11/30 [place] [address] SODIUM 141 mmol/L 11/06 [place] [address] POTASSIUM 4.0 mmol/L 11/06 [place] [address] CHLORIDE 108 mmol/L 11/06 [place] [address] Bicarbonate 25 mmol/L [place] [address] AGAP 8 mmol/L 11/30 [place] [address] CALCIUM 9.6 mg/dL 11/30 Unknown FREE T4 21288 T4 Free 1.23 ng/dL 11/30/2017 Unknown GFR CALC [id number] GFR Non Afr Amr 53 mL/min 11/30/2017 Unk nown GFR CALC 7514205 GFR Afr Amr >60 mL/min 11/30/2017 Unknow n THYROID STIMULATING HORMONE 44014 TSH 2.124 uIU/mL 11/30/2017 Unknown LIPID GROUP 83028 Cholesterol 152 mg/dL 09/28/2017 Unkno wn LIPID GROUP 85487 Triglyceride 151 mg/dL 09/28/2017 Unkn own L[facility] GROUP 03896 HDL CHOLESTEROL 47 mg/dL 09/28/2017 U nknown LIP[facility] GROUP 25545 Chol/HDL Ratio 3.23 ratio 09/28/2017 U nknown LIPID GROUP 48925 NON-HDL Chol 105 mg/dL 09/28/2017 Unkn own LIPID GROUP 76177 LDL Cholesterol 75 mg/dL 09/28/2017 U nknown ASSAY OF TROPONIN QUANT 88603 Troponin-I <0.30 ng/mL Unknown COMPREHENSIVE METABOLIC 73534 AST 20 U/L 2017 Unknown COMPREHENSIVE METABOLIC 27006 ALT 14 U/L 2017 Unknown COMPREHENSIVE METABOLIC 16301 BUN 19 mg/dL 2017 Unknown COMPREHENSIVE METABOLIC 34420 ALBUMIN 4.2 g/dL 2017 Unknown COMPREHENSIVE METABOLIC 87173 CHLORIDE 102 mmol/L 09/27 Unknown COMPREHENSIVE METABOLIC 41869 Bili Total 0.4 mg/dL 09/27 Unknown COMPREHENSIVE METABOLIC 58139 ALK PHOS 66 U/L 2017 Unknown COMPREHENSIVE METABOLIC 91296 SODIUM 135 mmol/L 09/27 Unknown COMPREHENSIVE METABOLIC 91801 CREATININE 1.01 mg/dL 09/05 Unknown COMPREHENSIVE METABOLIC 47409 CALCIUM 9.3 mg/dL 2017 Unknown COMPREHENSIVE METABOLIC 14007 POTASSIUM 4.8 mmol/L 09/27 Unknown COMPREHENSIVE METABOLIC 23734 Total Protein 7.0 g/dL Unknown COMPREHENSIVE METABOLIC 78351 Glucose 91 mg/dL 2017 Unknown COMPREHENSIVE METABOLIC 11888 Bicarbonate 23 mmol/L 09/05 Unknown COMPREHENSIVE METABOLIC 52930 AGAP 10 mmol/L 2017 Unknown COMPLETE BLOOD COUNT [id number] WBC 7.5 10e9/L 09/28/19 18 Unknown COMPLETE BLOOD COUNT [id number] RBC 4.13 10e12/L 2017 Unknown COMPLETE BLOOD COUNT 2335153 HEMOGLOBIN 12.6 g/dL 09/28/19 18 Unknown COMPLETE BLOOD COUNT 5259004 HEMATOCRIT 38.4 % 09/28/19 18 Unknown COMPLETE BLOOD COUNT [id number] MCV 93.0 fL 8 Unknown COMPLETE BLOOD COUNT [id number] MCH 30.5 pg 8 Unknown COMPLETE BLOOD COUNT [id number] MCHC 32.8 g/dL 8 Unknown COMPLETE BLOOD COUNT [id number] PLATELET COUNT 204 10e9/L Unknown COMPLETE BLOOD COUNT 6609365 Mean Plt Volume 10.9 fL Unknown COMPLETE BLOOD COUNT 5998198 Neut Auto 43.1 % 8 Unknown COMPLETE BLOOD COUNT 1513753 Lymph Auto 45.0 % 09/28/19 18 Unknown COMPLETE BLOOD COUNT 6144059 [place] Auto 9.2 % 8 Unknown COMPLETE BLOOD COUNT 0607125 RDW 13.4 % 8 Unknown COMPLETE BLOOD COUNT 6703186 Eos Auto 2.3 % 8 Unknown COMPLETE BLOOD COUNT 1167390 Baso Auto 0.4 % 8 Unknown COMPLETE BLOOD COUNT [id number] Neutrophil Abs 3.23 10e9/L Unknown COMPLETE BLOOD COUNT [id number] Lymphocyte Abs 3.38 10e9/L Unknown COMPLETE BLOOD COUNT 6012342 Monocyte Abs 0.69 10e9/L 09/05 Unknown COMPLETE BLOOD COUNT [id number] Eosinophil Abs 0.17 10e9/L Unknown COMPLETE BLOOD COUNT 9244254 RDW-SD 44.4 fL 8 Unknown COMPLETE BLOOD COUNT [id number] Basophil Abs 0.03 10e9/L 09/05 Unknown GFR CALC 6367799 GFR Non Afr Amr 53 mL/min 09/27/2017 Unk nown GFR CALC 4480096 GFR Afr Amr >60 mL/min 09/27/2017 Unknow n GLYCOSYLATED HEMOGLOBIN TEST 12924 Hgb A1c 90903-0 5.4 % 0 09/27/2017 Unknown MEAN GLUC 8089955 Calc Mean Gluc 108 mg/dL 09/27/2017 Unkn own MEAN GLUC 2487062 Calc Mean Gluc 114 mg/dL 11/01/2016 Unkn own LIPID GROUP 62000 Cholesterol 146 mg/dL 11/01/2016 Unkno wn LIPID GROUP 43441 Triglyceride 119 mg/dL 11/01/2016 Unkn own LIPID GROUP 06957 HDL CHOLESTEROL 47 mg/dL 11/01/2016 U nknown LIPID GROUP 99251 Chol/HDL Ratio 3.11 ratio 11/01/2016 U nknown LIPID GROUP 70500 NON-HDL Chol 99 mg/dL 11/01/2016 Unkn own [facility] 74804 LDL Cholesterol 75 mg/dL 11/01/2016 U nknown GLYCOSYLATED HEMOGLOBIN TEST 16350 Hgb A1c 00869-5 5.6 % 0 11/01/2016 Unknown COMPREHENSIVE METABOLIC 31810 AST 22 U/L 2016 Unknown COMPREHENSIVE METABOLIC 99701 ALT 12 U/L 2016 Unknown COMPREHENSIVE METABOLIC 73249 BUN 17 mg/dL 2016 Unknown COMPREHENSIVE METABOLIC 76936 ALBUMIN 4.0 g/dL 2016 Unknown COMPREHENSIVE METABOLIC 80838 CHLORIDE 110 mmol/L 11/01 Unknown COMPREHENSIVE METABOLIC 25984 Bili Total 0.4 mg/dL 11/01 Unknown COMPREHENSIVE METABOLIC 28415 ALK PHOS 63 U/L 2016 Unknown COMPREHENSIVE METABOLIC 43738 SODIUM 140 mmol/L 11/01 Unknown COMPREHENSIVE METABOLIC 83892 CREATININE 1.05 mg/dL 10/06 Unknown COMPREHENSIVE METABOLIC 26094 CALCIUM 9.2 mg/dL 2016 Unknown COMPREHENSIVE METABOLIC 36745 POTASSIUM 4.2 mmol/L 11/01 Unknown COMPREHENSIVE METABOLIC 69480 Total Protein 6.2 g/dL Unknown COMPREHENSIVE METABOLIC 08371 Glucose 87 mg/dL 2016 Unknown COMPREHENSIVE METABOLIC 63461 Bicarbonate 24 mmol/L 10/06 Unknown COMPREHENSIVE METABOLIC 05885 AGAP 6 mmol/L 2016 Unknown GFR CALC [id number] GFR Non Afr Amr 51 mL/min 11/01/2016 Unk nown GFR CALC [id number] GFR Afr Amr >60 mL/min 11/01/2016 Unknow n COMPLETE BLOOD COUNT [id number] WBC 6.7 10e9/L 11/02/19 17 Unknown COMPLETE BLOOD COUNT [id number] RBC 4.04 10e12/L 2016 Unknown COMPLETE BLOOD COUNT [id number] HEMOGLOBIN 12.1 g/dL 11/02/19 17 Unknown COMPLETE BLOOD COUNT [id number] HEMATOCRIT 38.0 % 11/02/19 17 Unknown COMPLETE BLOOD COUNT [id number] MCV 94.1 fL 7 Unknown COMPLETE BLOOD COUNT [id number] MCH 30.0 pg 7 Unknown COMPLETE BLOOD COUNT [id number] MCHC 31.8 g/dL 7 Unknown COMPLETE BLOOD COUNT [id number] PLATELET COUNT 206 10e9/L Unknown COMPLETE BLOOD COUNT [id number] Mean Plt Volume 11.3 fL Unknown COMPLETE BLOOD COUNT [id number] Neut Auto 35.8 % 7 Unknown COMPLETE BLOOD COUNT [id number] Lymph Auto 51.6 % 11/02/19 17 Unknown COMPLETE BLOOD COUNT [id number] Hunt Auto 8.8 % 7 Unknown COMPLETE BLOOD COUNT [id number] RDW 13.5 % 7 Unknown COMPLETE BLOOD COUNT 9292443 Eos Auto 3.4 % 7 Unknown COMPLETE BLOOD COUNT [id number] Baso Auto 0.4 % 7 Unknown COMPLETE BLOOD COUNT [id number] Neutrophil Abs 2.40 10e9/L Unknown COMPLETE BLOOD COUNT 2476113 Lymphocyte Abs 3.46 10e9/L Unknown COMPLETE BLOOD COUNT [id number] Monocyte Abs 0.59 10e9/L 10/06 Unknown COMPLETE BLOOD COUNT [id number] Eosinophil Abs 0.23 10e9/L Unknown COMPLETE BLOOD COUNT [id number] RDW-SD 45.3 fL 7 Unknown COMPLETE BLOOD COUNT [id number] Basophil Abs 0.03 10e9/L 10/06 Unknown THYROID STIMULATING HORMONE 46261 TSH 1.981 uIU/mL 11/01/2016 Unknown COMPLETE BLOOD COUNT [id number] WBC 6.0 10e9/L 05/14/19 17 Unknown COMPLETE BLOOD COUNT [id number] RBC 4.29 10e12/L 2016 Unknown COMPLETE BLOOD COUNT [id number] HEMOGLOBIN 12.9 g/dL 05/14/19 17 Unknown COMPLETE BLOOD COUNT [id number] HEMATOCRIT 38.4 % 05/14/19 17 Unknown COMPLETE BLOOD COUNT [id number] MCV 89.5 fL 7 Unknown COMPLETE BLOOD COUNT [id number] MCH 30.1 pg 7 Unknown COMPLETE BLOOD COUNT [id number] MCHC 33.6 g/dL 7 Unknown COMPLETE BLOOD COUNT [id number] PLATELET COUNT 181 10e9/L 11/2016 Unknown COMPLETE BLOOD COUNT [id number] Mean Plt Volume 11.7 fL 11/2016 Unknown COMPLETE BLOOD COUNT 1277935 Neut Auto 36.9 % 7 Unknown COMPLETE BLOOD COUNT [id number] Lymph Auto 50.4 % 05/14/19 17 Unknown COMPLETE BLOOD COUNT 1024374 Hunt Auto 9.0 % 7 Unknown COMPLETE BLOOD COUNT 0344953 RDW 13.7 % 7 Unknown COMPLETE BLOOD COUNT 1846112 Eos Auto 3.4 % 7 Unknown COMPLETE BLOOD COUNT 7570813 Baso Auto 0.3 % 7 Unknown COMPLETE BLOOD COUNT [id number] Neutrophil Abs 2.21 10e9/L Unknown COMPLETE BLOOD COUNT [id number] Lymphocyte Abs 3.02 10e9/L Unknown COMPLETE BLOOD COUNT 7647526 Monocyte Abs 0.54 10e9/L 11/2016 Unknown COMPLETE BLOOD COUNT [id number] Eosinophil Abs 0.20 10e9/L Unknown COMPLETE BLOOD COUNT [id number] RDW-SD 44.0 fL 7 Unknown COMPLETE BLOOD COUNT [id number] Basophil Abs 0.02 10e9/L 11/2016 Unknown GLYCOSYLATED HEMOGLOBIN TEST 02983 Hgb A1c 91185-1 5.4 % 0 05/13/2016 Unknown THYROID STIMULATING HORMONE 07599 TSH 2.200 uIU/mL 05/13/2016 Unknown GFR CALC 0437718 GFR Non Afr Amr 50 mL/min 05/13/2016 Unk nown GFR CALC 3167379 GFR Afr Amr >60 mL/min 05/13/2016 Unknow n MEAN GLUC [id number] Calc Mean Gluc 108 mg/dL 05/13/2016 Unkn own COMPREHENSIVE METABOLIC 97582 AST 18 U/L 2016 Unknown COMPREHENSIVE METABOLIC 67247 ALT 10 U/L 2016 Unknown COMPREHENSIVE METABOLIC 91984 BUN 20 mg/dL 2016 Unknown COMPREHENSIVE METABOLIC 17778 ALBUMIN 4.1 g/dL 2016 Unknown COMPREHENSIVE METABOLIC 54522 CHLORIDE 109 mmol/L 05/13 Unknown COMPREHENSIVE METABOLIC 28474 Bili Total 0.6 mg/dL 05/13 Unknown COMPREHENSIVE METABOLIC 87812 ALK PHOS 64 U/L 2016 Unknown COMPREHENSIVE METABOLIC 46694 SODIUM 141 mmol/L 05/13 Unknown COMPREHENSIVE METABOLIC 16530 CREATININE 1.06 mg/dL 11/2016 Unknown COMPREHENSIVE METABOLIC 19510 CALCIUM 9.9 mg/dL 2016 Unknown COMPREHENSIVE METABOLIC 48648 POTASSIUM 4.2 mmol/L 05/13 Unknown COMPREHENSIVE METABOLIC 03708 Total Protein 6.3 g/dL Unknown COMPREHENSIVE METABOLIC 56682 Glucose 99 mg/dL 2016 Unknown COMPREHENSIVE METABOLIC 48998 Bicarbonate 21 mmol/L 11/2016 Unknown COMPREHENSIVE METABOLIC 42022 AGAP 11 mmol/L 2016 Unknown LIPID GROUP 31068 Cholesterol 169 mg/dL 11/25/2015 Unkno wn LIPID GROUP 29196 Triglyceride 165 mg/dL 11/25/2015 Unkn own LIPID GROUP 87127 HDL CHOLESTEROL 43 mg/dL 11/25/2015 U nknown LIPID GROUP 75810 Chol/HDL Ratio 3.93 ratio 11/25/2015 U nknown LIPID GROUP 70867 NON-HDL Chol 126 mg/dL 11/25/2015 Unkn own LIPID GROUP 94256 LDL Cholesterol 93 mg/dL 11/25/2015 U nknown COMPREHENSIVE METABOLIC 90225 AST 18 U/L 2015 Unknown COMPREHENSIVE METABOLIC 86454 ALT 10 U/L 2015 Unknown COMPREHENSIVE METABOLIC 05168 BUN 20 mg/dL 2015 Unknown COMPREHENSIVE METABOLIC 36032 ALBUMIN 3.9 g/dL 2015 Unknown COMPREHENSIVE METABOLIC 69406 CHLORIDE 110 mmol/L 11/24 Unknown COMPREHENSIVE METABOLIC 44401 Bili Total 0.5 mg/dL 11/24 Unknown COMPREHENSIVE METABOLIC 99168 ALK PHOS 72 U/L 2015 Unknown COMPREHENSIVE METABOLIC 94849 SODIUM 141 mmol/L 11/24 Unknown COMPREHENSIVE METABOLIC 60405 CREATININE 1.12 mg/dL 11/06 Unknown COMPREHENSIVE METABOLIC 71762 CALCIUM 9.7 mg/dL 2015 Unknown COMPREHENSIVE METABOLIC 73166 POTASSIUM 4.4 mmol/L 11/24 Unknown COMPREHENSIVE METABOLIC 65934 Total Protein 6.2 g/dL Unknown COMPREHENSIVE METABOLIC 13071 Glucose 90 mg/dL 2015 Unknown COMPREHENSIVE METABOLIC 53806 Bicarbonate 23 mmol/L 11/06 Unknown COMPREHENSIVE METABOLIC 39104 AGAP 8 mmol/L 2015 Unknown GFR CALC 3955287 GFR Non Afr Amr 47 mL/min 11/25/2015 Unk nown GFR CALC 2164247 GFR Afr Amr 57 mL/min 11/25/2015 Unknown GLYCOSYLATED HEMOGLOBIN TEST 05857 Hgb A1c 58658-3 5.5 % 0 11/25/2015 Unknown THYROID STIMULATING HORMONE 33184 TSH 2.537 uIU/mL 11/25/2015 Unknown FREE T4 83824 T4 Free 1.36 ng/dL 11/25/2015 Unknown COMPLETE BLOOD COUNT 1981727 WBC 6.8 10e9/L 11/25/19 16 Unknown COMPLETE BLOOD COUNT 2090417 RBC 4.20 10e12/L 2015 Unknown COMPLETE BLOOD COUNT [id number] HEMOGLOBIN 12.5 g/dL 11/25/19 16 Unknown COMPLETE BLOOD COUNT 9555304 HEMATOCRIT 38.0 % 11/25/19 16 Unknown COMPLETE BLOOD COUNT 4779607 MCV 90.5 fL 6 Unknown COMPLETE BLOOD COUNT 5315457 MCH 29.8 pg 6 Unknown COMPLETE BLOOD COUNT 9810248 MCHC 32.9 g/dL 6 Unknown COMPLETE BLOOD COUNT 1942445 PLATELET COUNT 197 10e9/L Unknown COMPLETE BLOOD COUNT 0677258 Mean Plt Volume 11.7 fL Unknown COMPLETE BLOOD COUNT 5524412 Neut Auto 41.3 % 6 Unknown COMPLETE BLOOD COUNT 9751104 Lymph Auto 47.1 % 11/25/19 16 Unknown COMPLETE BLOOD COUNT 3158106 Hunt Auto 7.8 % 6 Unknown COMPLETE BLOOD COUNT 3318015 RDW 13.8 % 6 Unknown COMPLETE BLOOD COUNT 7187313 Eos Auto 3.4 % 6 Unknown COMPLETE BLOOD COUNT 0229480 Baso Auto 0.4 % 6 Unknown COMPLETE BLOOD COUNT 0475459 Neutrophil Abs 2.81 10e9/L Unknown COMPLETE BLOOD COUNT 2502180 Lymphocyte Abs 3.20 10e9/L Unknown COMPLETE BLOOD COUNT 5470725 Monocyte Abs 0.53 10e9/L 11/06 Unknown COMPLETE BLOOD COUNT 2646304 Eosinophil Abs 0.23 10e9/L Unknown COMPLETE BLOOD COUNT 9448746 RDW-SD 44.4 fL 6 Unknown COMPLETE BLOOD COUNT 4236410 Basophil Abs 0.03 10e9/L 11/06 Unknown MEAN GLUC 6605984 Calc Mean Gluc 111 mg/dL 11/25/2015 [place] [address] Glucose 89 MG/DL 02/19 [place] [address] CREATININE 1.12 MG/DL [place] [address] BUN 20 MG/DL 02/19 [place] [address] SODIUM 139 MMOL/L 02/04 [place] [address] POTASSIUM 4.6 MMOL/L 02/04 [place] [address] CHLORIDE 108 MMOL/L 02/04 [place] [address] BICARB 26 MMOL/L 02/19 [place] [address] ANION GAP 5 MEQ/L 02/19 [place] [address] CALCIUM 10.0 MG/DL 02/04 Unknown GFR CALC 8998717 GFR AA 57.0L ML/MIN 02/19/2015 Unknow n GFR CALC 5739377 GFR NON-AA 47.0L ML/MIN 02/19/2015 Unkno wn THYROID STIMULATING HORMONE 03482 TSH 2.378 uIU/ML 11/14/2014 Unknown COMPLETE BLOOD COUNT 6854903 WBC 6.4 10e9/L 11/15/19 15 Unknown COMPLETE BLOOD COUNT 8493258 RBC 3.99 10e12/L 2014 Unknown COMPLETE BLOOD COUNT 6163716 HGB 11.9 g/dL 5 Unknown COMPLETE BLOOD COUNT 6896644 HCT DET 36.9 % 5 Unknown COMPLETE BLOOD COUNT 8643836 MCV 92.5 fL 5 Unknown COMPLETE BLOOD COUNT 8892953 MCH 29.8 pg 5 Unknown COMPLETE BLOOD COUNT 0687939 MCHC 32.2 g/dL 5 Unknown COMPLETE BLOOD COUNT 6002923 PLT 172 10e9/L 11/15/19 15 Unknown COMPLETE BLOOD COUNT 7272914 MPV 11.7 fL 5 Unknown COMPLETE BLOOD COUNT 8711517 CINTHYA % 40.4 % 5 Unknown COMPLETE BLOOD COUNT 1784836 LY % 48.0 % 5 Unknown COMPLETE BLOOD COUNT 1994564 MON % 8.3 % 5 Unknown COMPLETE BLOOD COUNT 6693520 EOS % 2.8 % 5 Unknown COMPLETE BLOOD COUNT 4491684 BASO % 0.5 % 5 Unknown COMPLETE BLOOD COUNT 0514391 RDW 13.6 % 5 Unknown COMPLETE BLOOD COUNT 2248210 ABS CINTHYA 2.59 10e9/L 015 Unknown COMPLETE BLOOD COUNT 7745994 ABS LYMPH 3.07 10e9/L 015 Unknown COMPLETE BLOOD COUNT 7714833 ABS MONO 0.53 10e9/L 015 Unknown COMPLETE BLOOD COUNT 6999870 ABS EOS 0.18 10e9/L 015 Unknown COMPLETE BLOOD COUNT 0883263 ABS BASO 0.03 10e9/L 015 Unknown COMPLETE BLOOD COUNT 6036234 RDW-SD 44.9 fL 5 Unknown LIPID GROUP 95294 HDL TEST 42 MG/DL 11/14/2014 Unknown LIPID GROUP 54796 TRIG 177 MG/DL 11/14/2014 Unknown LIPID GROUP 98396 TEST LDL 72 MG/DL 11/14/2014 Unknown LIPID GROUP 70879 CHOL 149 MG/DL 11/14/2014 Unknown LIPID GROUP 50887 RCHOL/HDL 3.55 RATIO 11/14/2014 Unknow n LIPID GROUP 89993 NON-HDL CH 107 MG/DL 11/14/2014 Unknow n GLYCOSYLATED HEMOGLOBIN TEST 16022 A1C HPLC 72731-7 5.5 % 0 11/14/2014 Unknown FREE T4 37375 FREE T4 1.39 NG/DL 11/14/2014 Unknown GFR CALC 7053162 GFR AA 55.0L ML/MIN 11/14/2014 Unknow n GFR CALC 7060771 GFR NON-AA 46.0L ML/MIN 11/14/2014 Unkno wn COMPREHENSIVE METABOLIC 79256 AST 17 U/L 2014 Unknown COMPREHENSIVE METABOLIC 75143 ALT 10 IU/L 2014 Unknown COMPREHENSIVE METABOLIC 48697 BUN 20 MG/DL 2014 Unknown COMPREHENSIVE METABOLIC 12094 ALBUMIN 3.9 GM/DL 2014 Unknown COMPREHENSIVE METABOLIC 18565 CHLORIDE 111 MMOL/L 11/14 Unknown COMPREHENSIVE METABOLIC 98531 BILI TOT 0.4 MG/DL 2014 Unknown COMPREHENSIVE METABOLIC 81377 ALK PHOS 70 U/L 2014 Unknown COMPREHENSIVE METABOLIC 22977 SODIUM 142 MMOL/L 11/14 Unknown COMPREHENSIVE METABOLIC 77368 CREATININE 1.16 MG/DL 11/05 Unknown COMPREHENSIVE METABOLIC 27974 CALCIUM 9.4 MG/DL 2014 Unknown COMPREHENSIVE METABOLIC 13150 POTASSIUM 4.6 MMOL/L 11/14 Unknown COMPREHENSIVE METABOLIC 63205 PROT TOT 6.2 GM/DL 2014 Unknown COMPREHENSIVE METABOLIC 54419 Glucose 90 MG/DL 2014 Unknown COMPREHENSIVE METABOLIC 06111 BICARB 24 MMOL/L 2014 Unknown COMPREHENSIVE METABOLIC 16260 ANION GAP 7 MEQ/L 2014 Unknown THYROID STIMULATING HORMONE 01304 TSH 2.427 uIU/ML 05/10/2014 Unknown LIPID GROUP 43540 HDL TEST 47 MG/DL 05/10/2014 Unknown LIPID GROUP 35351 TRIG 145 MG/DL 05/10/2014 Unknown LIPID GROUP 83821 TEST LDL 73 MG/DL 05/10/2014 Unknown LIPID GROUP 33803 CHOL 149 MG/DL 05/10/2014 Unknown LIPID GROUP 26860 RCHOL/HDL 3.17 RATIO 05/10/2014 Unknow n LIPID GROUP 27251 NON-HDL CH 102 MG/DL 05/10/2014 Unknow n COMPREHENSIVE METABOLIC 36790 AST 17 U/L 2014 Unknown COMPREHENSIVE METABOLIC 89892 ALT 9 IU/L 2014 Unknown COMPREHENSIVE METABOLIC 84002 BUN 19 MG/DL 2014 Unknown COMPREHENSIVE METABOLIC 23897 ALBUMIN 4.3 GM/DL 2014 Unknown COMPREHENSIVE METABOLIC 90911 CHLORIDE 108 MMOL/L 05/10 Unknown COMPREHENSIVE METABOLIC 76500 BILI TOT 0.5 MG/DL 2014 Unknown COMPREHENSIVE METABOLIC 09413 ALK PHOS 68 U/L 2014 Unknown COMPREHENSIVE METABOLIC 37740 SODIUM 140 MMOL/L 05/10 Unknown COMPREHENSIVE METABOLIC 60693 CREATININE 1.08 MG/DL 08/2014 Unknown COMPREHENSIVE METABOLIC 44491 CALCIUM 9.9 MG/DL 2014 Unknown COMPREHENSIVE METABOLIC 92667 POTASSIUM 4.3 MMOL/L 05/10 Unknown COMPREHENSIVE METABOLIC 20206 PROT TOT 7.2 GM/DL 2014 Unknown COMPREHENSIVE METABOLIC 68047 Glucose 94 MG/DL 2014 Unknown COMPREHENSIVE METABOLIC 24619 BICARB 26 MMOL/L 2014 Unknown COMPREHENSIVE METABOLIC 22282 ANION GAP 6 MEQ/L 2014 Unknown GFR CALC 3745465 GFR AA 60.0L ML/MIN 05/10/2014 Unknow n GFR CALC 6785741 GFR NON-AA 49.0L ML/MIN 05/10/2014 Unkno wn GLYCOSYLATED HEMOGLOBIN TEST 93011 A1C HPLC 58842-3 5.6 % 0 05/10/2014 Unknown COMPLETE BLOOD COUNT 0387153 WBC 7.2 10e9/L 05/11/19 15 Unknown COMPLETE BLOOD COUNT 7543152 RBC 4.28 10e12/L 2014 Unknown COMPLETE BLOOD COUNT 8109438 HGB 12.8 g/dL 5 Unknown COMPLETE BLOOD COUNT 9155462 HCT DET 39.3 % 5 Unknown COMPLETE BLOOD COUNT 2763170 MCV 91.8 fL 5 Unknown COMPLETE BLOOD COUNT 2199942 MCH 29.9 pg 5 Unknown COMPLETE BLOOD COUNT 4628618 MCHC 32.6 g/dL 5 Unknown COMPLETE BLOOD COUNT 4661483 PLT 189 10e9/L 05/11/19 15 Unknown COMPLETE BLOOD COUNT 5930429 MPV 11.2 fL 5 Unknown COMPLETE BLOOD COUNT 4368901 CINTHYA % 38.0 % 5 Unknown COMPLETE BLOOD COUNT 5810117 LY % 51.0 % 5 Unknown COMPLETE BLOOD COUNT 7155045 MON % 7.7 % 5 Unknown COMPLETE BLOOD COUNT 7041989 EOS % 2.9 % 5 Unknown COMPLETE BLOOD COUNT 4840833 BASO % 0.4 % 5 Unknown COMPLETE BLOOD COUNT 1615512 RDW 14.0 % 5 Unknown COMPLETE BLOOD COUNT 2265616 ABS CINTHYA 2.74 10e9/L 015 Unknown COMPLETE BLOOD COUNT 2376119 ABS LYMPH 3.67 10e9/L 015 Unknown COMPLETE BLOOD COUNT 3979766 ABS MONO 0.55 10e9/L 015 Unknown COMPLETE BLOOD COUNT 4202818 ABS EOS 0.21 10e9/L 015 Unknown COMPLETE BLOOD COUNT 0854084 ABS BASO 0.03 10e9/L 015 Unknown COMPLETE BLOOD COUNT 1685123 RDW-SD 46.1 fL 5 Unknown FREE T4 15729 FREE T4 1.14 NG/DL 05/10/2014 Unknown GLYCOSYLATED HEMOGLOBIN TEST 68687 A1C HPLC 55535-1 5.2 % 0 03/29/2013 Unknown FREE T4 38753 FREE T4 1.40 NG/DL 03/28/2013 Unknown GFR CALC 3316497 GFR AA >60 ML/MIN 03/28/2013 Unknown GFR CALC 3333570 GFR NON-AA 52.0L ML/MIN 03/28/2013 Unkno wn COMPREHENSIVE METABOLIC 92145 AST 15 U/L 2013 Unknown COMPREHENSIVE METABOLIC 35251 ALT 9 IU/L 2013 Unknown COMPREHENSIVE METABOLIC 88645 BUN 17 MG/DL 2013 Unknown COMPREHENSIVE METABOLIC 19280 ALBUMIN 4.0 GM/DL 2013 Unknown COMPREHENSIVE METABOLIC 15678 CHLORIDE 112 MMOL/L 03/28 Unknown COMPREHENSIVE METABOLIC 42511 BILI TOT 0.5 MG/DL 2013 Unknown COMPREHENSIVE METABOLIC 35511 ALK PHOS 66 U/L 2013 Unknown COMPREHENSIVE METABOLIC 06394 SODIUM 140 MMOL/L 03/28 Unknown COMPREHENSIVE METABOLIC 49010 CREATININE 1.03 MG/DL 03/08 Unknown COMPREHENSIVE METABOLIC 91607 CALCIUM 9.5 MG/DL 2013 Unknown COMPREHENSIVE METABOLIC 68061 POTASSIUM 4.1 MMOL/L 03/28 Unknown COMPREHENSIVE METABOLIC 10807 PROT TOT 6.2 GM/DL 2013 Unknown COMPREHENSIVE METABOLIC 45462 Glucose 102 MG/DL 2013 Unknown COMPREHENSIVE METABOLIC 66480 BICARB 23 MMOL/L 2013 Unknown COMPREHENSIVE METABOLIC 20239 ANION GAP 5 MEQ/L 2013 Unknown THYROID STIMULATING HORMONE 95950 TSH 2.074 uIU/ML 03/28/2013 Unknown VITAMIN B 12 FOLIC ACID 33125|45712 VIT B 12 423 PG/ML 03/08 Unknown VITAMIN B 12 FOLIC ACID 52929|80447 FOLIC ACID 19.7 NG/ML Unknown LIPID GROUP 94389 HDL TEST 40 MG/DL 03/28/2013 Unknown LIPID GROUP 50079 TRIG 145 MG/DL 03/28/2013 Unknown LIPID GROUP 33991 TEST LDL 81 MG/DL 03/28/2013 Unknown LIPID GROUP 89035 CHOL 150 MG/DL 03/28/2013 Unknown LIPID GROUP 07439 RCHOL/HDL 3.75 RATIO 03/28/2013 Unknow n COMPLETE BLOOD COUNT 5357957 WBC 6.0 10e9/L 03/28/19 14 Unknown COMPLETE BLOOD COUNT 4574355 RBC 4.26 10e12/L 2013 Unknown COMPLETE BLOOD COUNT 3441758 HGB 12.7 g/dL 4 Unknown COMPLETE BLOOD COUNT 4009767 HCT DET 38.7 % 4 Unknown COMPLETE BLOOD COUNT 9928805 MCV 90.8 fL 4 Unknown COMPLETE BLOOD COUNT 6145617 MCH 29.8 pg 4 Unknown COMPLETE BLOOD COUNT 2083772 MCHC 32.8 g/dL 4 Unknown COMPLETE BLOOD COUNT 3599289 PLT 178 10e9/L 03/28/19 14 Unknown COMPLETE BLOOD COUNT 0645289 MPV 11.7 fL 4 Unknown COMPLETE BLOOD COUNT 5131906 CINTHYA % 30.5 % 4 Unknown COMPLETE BLOOD COUNT 6318254 LY % 55.4 % 4 Unknown COMPLETE BLOOD COUNT 7960406 MON % 9.0 % 4 Unknown COMPLETE BLOOD COUNT 5926054 EOS % 4.4 % 4 Unknown COMPLETE BLOOD COUNT 0529707 BASO % 0.7 % 4 Unknown COMPLETE BLOOD COUNT 1182984 RDW 13.3 % 4 Unknown COMPLETE BLOOD COUNT 0332925 ABS CINTHYA 1.83 10e9/L 014 Unknown COMPLETE BLOOD COUNT 2168792 ABS LYMPH 3.32 10e9/L 014 Unknown COMPLETE BLOOD COUNT 5419641 ABS MONO 0.54 10e9/L 014 Unknown COMPLETE BLOOD COUNT 9787869 ABS EOS 0.26 10e9/L 014 Unknown COMPLETE BLOOD COUNT 5687627 ABS BASO 0.04 10e9/L 014 Unknown COMPLETE BLOOD COUNT 7037491 RDW-SD 43.2 fL 4 Unknown HEMOGLOBIN A1C (GLYCOSYLATED) 0147132 A1C HPLC 18011-7 5.5 % 02/24/2012 Unknown COMPLETE BLOOD COUNT 7835117 WBC 6.0 10e9/L 02/23/20 12 Unknown COMPLETE BLOOD COUNT 2920008 RBC 4.22 10e12/L 2011 Unknown COMPLETE BLOOD COUNT 1161996 HGB 12.4 g/dL 2 Unknown COMPLETE BLOOD COUNT 7613224 HCT DET 38.2 % 2 Unknown COMPLETE BLOOD COUNT 8361041 MCV 90.5 fL 2 Unknown COMPLETE BLOOD COUNT 9380305 MCH 29.4 pg 2 Unknown COMPLETE BLOOD COUNT 9420399 MCHC 32.5 g/dL 2 Unknown COMPLETE BLOOD COUNT 4127667 PLT 187 10e9/L 02/23/20 12 Unknown COMPLETE BLOOD COUNT 5582129 MPV 11.5 fL 2 Unknown COMPLETE BLOOD COUNT 1626225 CINTHYA % 36.4 % 2 Unknown COMPLETE BLOOD COUNT 9603827 LY % 51.0 % 2 Unknown COMPLETE BLOOD COUNT 6661203 MON % 8.7 % 2 Unknown COMPLETE BLOOD COUNT 9388626 EOS % 3.2 % 2 Unknown COMPLETE BLOOD COUNT 2338211 BASO % 0.7 % 2 Unknown COMPLETE BLOOD COUNT 4184521 RDW 13.7 % 2 Unknown COMPLETE BLOOD COUNT 2490178 ABS CINTHYA 2.18 10e9/L 012 Unknown COMPLETE BLOOD COUNT 7712456 ABS LYMPH 3.06 10e9/L 012 Unknown COMPLETE BLOOD COUNT 9454145 ABS MONO 0.52 10e9/L 012 Unknown COMPLETE BLOOD COUNT 2691272 ABS EOS 0.19 10e9/L 012 Unknown COMPLETE BLOOD COUNT 8489483 ABS BASO 0.04 10e9/L 012 Unknown COMPLETE BLOOD COUNT 5510530 RDW-SD 44.3 fL 2 Unknown LIPID GROUP 89331 HDL TEST 42 MG/DL 02/23/2012 Unknown LIPID GROUP 19330 TRIG 156 MG/DL 02/23/2012 Unknown LIPID GROUP 33760 TEST LDL 80 MG/DL 02/23/2012 Unknown LIPID GROUP 41573 CHOL 153 MG/DL 02/23/2012 Unknown LIPID GROUP 36714 RCHOL/HDL 3.64 RATIO 02/23/2012 Unknow n FREE T4 69799 FREE T4 1.22 NG/DL 02/23/2012 Unknown COMPREHENSIVE METABOLIC 15748 AST 20 U/L 2011 Unknown COMPREHENSIVE METABOLIC 32977 ALT 11 IU/L 2011 Unknown COMPREHENSIVE METABOLIC 09078 BUN 19 MG/DL 2011 Unknown COMPREHENSIVE METABOLIC 20198 ALBUMIN 4.3 GM/DL 2011 Unknown COMPREHENSIVE METABOLIC 99393 CHLORIDE 109 MMOL/L 02/22 Unknown COMPREHENSIVE METABOLIC 96458 BILI TOT 0.6 MG/DL 2011 Unknown COMPREHENSIVE METABOLIC 35228 ALK PHOS 84 U/L 2011 Unknown COMPREHENSIVE METABOLIC 74444 SODIUM 142 MMOL/L 02/22 Unknown COMPREHENSIVE METABOLIC 57408 CREATININE 1.09 MG/DL 02/04 Unknown COMPREHENSIVE METABOLIC 09629 CALCIUM 9.8 MG/DL 2011 Unknown COMPREHENSIVE METABOLIC 03342 POTASSIUM 4.2 MMOL/L 02/22 Unknown COMPREHENSIVE METABOLIC 36291 PROT TOT 6.4 GM/DL 2011 Unknown COMPREHENSIVE METABOLIC 27887 Glucose 89 MG/DL 2011 Unknown COMPREHENSIVE METABOLIC 76307 BICARB 25 MMOL/L 2011 Unknown COMPREHENSIVE METABOLIC 00403 ANION GAP 8 MEQ/L 2011 Unknown GFR CALC 2880264 GFR AA 60.0L ML/MIN 02/23/2012 Unknow n GFR CALC 7977543 GFR NON-AA 49.0L ML/MIN 02/23/2012 Unkno wn THYROID STIMULATING HORMONE 37873 TSH 2.450 uIU/ML 02/23/2012 Unknown COMPREHENSIVE METABOLIC 73145 AST 22 U/L 2011 Unknown COMPREHENSIVE METABOLIC 66061 ALT 14 IU/L 2011 Unknown COMPREHENSIVE METABOLIC 41485 BUN 21 MG/DL 2011 Unknown COMPREHENSIVE METABOLIC 08541 ALBUMIN 4.3 GM/DL 2011 Unknown COMPREHENSIVE METABOLIC 80426 CHLORIDE 106 MMOL/L 04/01 Unknown COMPREHENSIVE METABOLIC 09598 BILI TOT 0.4 MG/DL 2011 Unknown COMPREHENSIVE METABOLIC 29967 ALK PHOS 80 U/L 2011 Unknown COMPREHENSIVE METABOLIC 14672 SODIUM 141 MMOL/L 04/01 Unknown COMPREHENSIVE METABOLIC 91870 CREATININE 1.13 MG/DL 03/08 Unknown COMPREHENSIVE METABOLIC 65294 CALCIUM 9.4 MG/DL 2011 Unknown COMPREHENSIVE METABOLIC 74777 POTASSIUM 4.3 MMOL/L 04/01 Unknown COMPREHENSIVE METABOLIC 57860 PROT TOT 6.7 GM/DL 2011 Unknown COMPREHENSIVE METABOLIC 89381 Glucose 98 MG/DL 2011 Unknown COMPREHENSIVE METABOLIC 71211 BICARB 25 MMOL/L 2011 Unknown COMPREHENSIVE METABOLIC 58745 ANION GAP 10 MEQ/L 2011 Unknown LIPID GROUP 28199 HDL TEST 44 MG/DL 04/01/2011 Unknown LIPID GROUP 67426 TRIG 164 MG/DL 04/01/2011 Unknown LIPID GROUP 89365 TEST LDL 98 MG/DL 04/01/2011 Unknown LIPID GROUP 40993 CHOL 175 MG/DL 04/01/2011 Unknown LIPID GROUP 35658 RCHOL/HDL 3.98 RATIO 04/01/2011 Unknow n COMPLETE BLOOD COUNT 89364 WBC 6.7 10e9/L 04/01/19 12 Unknown COMPLETE BLOOD COUNT 28850 RBC 4.36 10e12/L 2011 Unknown COMPLETE BLOOD COUNT 78382 HGB 12.9 g/dL 2 Unknown COMPLETE BLOOD COUNT 49820 HCT DET 39.4 % 2 Unknown COMPLETE BLOOD COUNT 10994 MCV 90.4 fL 2 Unknown COMPLETE BLOOD COUNT 50143 MCH 29.6 pg 2 Unknown COMPLETE BLOOD COUNT 65071 MCHC 32.7 g/dL 2 Unknown COMPLETE BLOOD COUNT 31655 PLT 184 10e9/L 04/01/19 12 Unknown COMPLETE BLOOD COUNT 51758 MPV 10.9 fL 2 Unknown COMPLETE BLOOD COUNT 02431 CINTHYA % 41.5 % 2 Unknown COMPLETE BLOOD COUNT 05291 LY % 45.7 % 2 Unknown COMPLETE BLOOD COUNT 11287 MON % 9.4 % 2 Unknown COMPLETE BLOOD COUNT 20939 EOS % 3.0 % 2 Unknown COMPLETE BLOOD COUNT 02088 BASO % 0.4 % 2 Unknown COMPLETE BLOOD COUNT 93053 RDW 13.2 % 2 Unknown COMPLETE BLOOD COUNT 55977 ABS CINTHYA 2.78 10e9/L 012 Unknown COMPLETE BLOOD COUNT 61826 ABS LYMPH 3.06 10e9/L 012 Unknown COMPLETE BLOOD COUNT 58664 ABS MONO 0.63 10e9/L 012 Unknown COMPLETE BLOOD COUNT 76324 ABS EOS 0.20 10e9/L 012 Unknown COMPLETE BLOOD COUNT 93980 ABS BASO 0.03 10e9/L 012 Unknown COMPLETE BLOOD COUNT 57046 RDW-SD 42.3 fL 2 Unknown GFR CALC 7741436 GFR AA 57.0L ML/MIN 04/01/2011 Unknow n GFR CALC 6944736 GFR NON-AA 47.0L ML/MIN 04/01/2011 Unkno wn THYROID STIMULATING HORMONE 67697 TSH 2.663 uIU/ML 04/01/2011 Unknown FREE T4 53974 FREE T4 1.15 NG/DL 04/01/2011 Unknown THYROID STIMULATING HORMONE 32328 TSH 1.908 uIU/ML 07/06/2010 Unknown COMPLETE BLOOD COUNT 46452 WBC 6.4 10e9/L 07/07/19 11 Unknown COMPLETE BLOOD COUNT 43332 RBC 3.92 10e12/L 2010 Unknown COMPLETE BLOOD COUNT 73797 HGB 11.8 g/dL 1 Unknown COMPLETE BLOOD COUNT 40241 HCT DET 36.0 % 1 Unknown COMPLETE BLOOD COUNT 82294 MCV 91.8 fL 1 Unknown COMPLETE BLOOD COUNT 46918 MCH 30.1 pg 1 Unknown COMPLETE BLOOD COUNT 22780 MCHC 32.8 g/dL 1 Unknown COMPLETE BLOOD COUNT 65888 PLT 176 10e9/L 07/07/19 11 Unknown COMPLETE BLOOD COUNT 22955 MPV 11.4 fL 1 Unknown COMPLETE BLOOD COUNT 77490 CINTHYA % 50.4 % 1 Unknown COMPLETE BLOOD COUNT 55031 LY % 35.5 % 1 Unknown COMPLETE BLOOD COUNT 06687 MON % 10.2 % 1 Unknown COMPLETE BLOOD COUNT 51121 EOS % 3.3 % 1 Unknown COMPLETE BLOOD COUNT 30170 BASO % 0.6 % 1 Unknown COMPLETE BLOOD COUNT 76570 RDW 13.7 % 1 Unknown COMPLETE BLOOD COUNT 98932 ABS CINTHYA 3.23 10e9/L 011 Unknown COMPLETE BLOOD COUNT 24026 ABS LYMPH 2.27 10e9/L 011 Unknown COMPLETE BLOOD COUNT 58539 ABS MONO 0.65 10e9/L 011 Unknown COMPLETE BLOOD COUNT 79845 ABS EOS 0.21 10e9/L 011 Unknown COMPLETE BLOOD COUNT 16378 ABS BASO 0.04 10e9/L 011 Unknown COMPLETE BLOOD COUNT 38273 RDW-SD 45.3 fL 1 Unknown GFR CALC [id number] GFR AA >60 ML/MIN 07/06/2010 Unknown GFR CALC [id number] GFR NON-AA 53.0L ML/MIN 07/06/2010 Unkno wn FREE T4 91778 FREE T4 1.20 NG/DL 07/06/2010 Unknown COMPREHENSIVE METABOLIC 83908 AST 17 U/L 2010 Unknown COMPREHENSIVE METABOLIC 35357 ALT 9 IU/L 2010 Unknown COMPREHENSIVE METABOLIC 53712 BUN 16 MG/DL 2010 Unknown COMPREHENSIVE METABOLIC 36098 ALBUMIN 4.0 GM/DL 2010 Unknown COMPREHENSIVE METABOLIC 42953 CHLORIDE 108 MMOL/L 07/06 Unknown COMPREHENSIVE METABOLIC 75495 BILI TOT 0.5 MG/DL 2010 Unknown COMPREHENSIVE METABOLIC 90324 ALK PHOS 76 U/L 2010 Unknown COMPREHENSIVE METABOLIC 30698 SODIUM 139 MMOL/L 07/06 Unknown COMPREHENSIVE METABOLIC 11450 CREATININE 1.02 MG/DL 04/2010 Unknown COMPREHENSIVE METABOLIC 46685 CALCIUM 9.2 MG/DL 2010 Unknown COMPREHENSIVE METABOLIC 63291 POTASSIUM 4.5 MMOL/L 07/06 Unknown COMPREHENSIVE METABOLIC 01114 PROT TOT 6.1 GM/DL 2010 Unknown COMPREHENSIVE METABOLIC 40034 Glucose 93 MG/DL 2010 Unknown COMPREHENSIVE METABOLIC 36017 BICARB 26 MMOL/L 2010 Unknown COMPREHENSIVE METABOLIC 64487 ANION GAP 5 MEQ/L 2010 Unknown LIPID GROUP 33838 HDL TEST 46 MG/DL 07/06/2010 Unknown LIPID GROUP 91600 TRIG 102 MG/DL 07/06/2010 Unknown LIPID GROUP 49983 TEST LDL 88 MG/DL 07/06/2010 Unknown LIPID GROUP 23977 CHOL 154 MG/DL 07/06/2010 Unknown LIPID GROUP 37472 RCHOL/HDL 3.35 RATIO 07/06/2010 Unknow n Procedures Procedure Codes Date ROUTINE VENIPUNCTURE CPT-4: 86189 01/23/2019 LIPID PANEL CPT-4: 36841 01/23/2019 FLU VACC PRSV FREE INC ANTIG 65 AND OLDER CPT-4: 34066 12/26/2018 FLU VACC PRSV FREE INC ANTIG 65 AND OLDER CPT-4: 12127 12/26/2018 ADMIN INFLUENZA VIRUS VAC CPT-4: G0008 12/26/2018 COMPREHEN METABOLIC PANEL CPT-4: 83657 12/15/2018 ROUTINE VENIPUNCTURE CPT-4: 18158 12/15/2018 ROUTINE VENIPUNCTURE CPT-4: 33663 08/14/2018 ASSAY THYROID STIM HORMONE CPT-4: 74386 08/14/2018 COMPREHEN METABOLIC PANEL CPT-4: 51840 08/14/2018 COMPLETE CBC W/AUTO DIFF WBC CPT-4: 81660 08/14/2018 URINALYSIS NONAUTO W/O SCOPE CPT-4: 75943 05/10/2018 URINE CULTURE/ COLONY COUNT CPT-4: 52861 05/10/2018 URINE CULTURE/ COLONY COUNT CPT-4: 23907 12/06/2017 ROUTINE VENIPUNCTURE CPT-4: 41243 11/30/2017 ASSAY OF FREE THYROXINE CPT-4: 34583 11/30/2017 ASSAY THYROID STIM HORMONE CPT-4: 88860 11/30/2017 COMPLETE CBC W/AUTO DIFF WBC CPT-4: 34846 11/30/2017 METABOLIC PANEL TOTAL CA CPT-4: 12870 11/30/2017 FLU VACC PRSV FREE INC ANTIG 65 AND OLDER CPT-4: 52143 11/22/2017 ASSAY, GLUCOSE, BLOOD QUANT CPT-4: 61888 11/22/2017 ADMIN INFLUENZA VIRUS VAC CPT-4: G0008 11/22/2017 ROUTINE VENIPUNCTURE CPT-4: 51835 09/27/2017 COMPREHEN METABOLIC PANEL CPT-4: 19939 09/27/2017 COMPLETE CBC W/AUTO DIFF WBC CPT-4: 55465 09/27/2017 A1C HPLC CPT-4: 70017 09/27/2017 ASSAY OF TROPONIN QUANT CPT-4: 00333 09/27/2017 LIPID PANEL CPT-4: 70454 09/27/2017 THER/PROPH/DIAG INJ SC/IM CPT-4: 03780 05/30/2017 TRIAMCINOLONE ACET INJ NOS CPT-4: J3301 05/30/2017 URINALYSIS NONAUTO W/O SCOPE CPT-4: 62224 04/18/2017 URINE CULTURE/ COLONY COUNT CPT-4: 84247 04/18/2017 FLU VACC PRSV FREE INC ANTIG 65 AND OLDER CPT-4: 32695 12/10/2016 ADMIN INFLUENZA VIRUS VAC CPT-4: G0008 12/10/2016 ROUTINE VENIPUNCTURE CPT-4: 53566 11/01/2016 COMPREHEN METABOLIC PANEL CPT-4: 34886 11/01/2016 COMPLETE CBC W/AUTO DIFF WBC CPT-4: 03111 11/01/2016 LIPID PANEL CPT-4: 00582 11/01/2016 A1C HPLC CPT-4: 80235 11/01/2016 ASSAY THYROID STIM HORMONE CPT-4: 55504 11/01/2016 ROUTINE VENIPUNCTURE CPT-4: 65992 05/13/2016 ASSAY THYROID STIM HORMONE CPT-4: 63895 05/13/2016 COMPREHEN METABOLIC PANEL CPT-4: 68389 05/13/2016 COMPLETE CBC W/AUTO DIFF WBC CPT-4: 69257 05/13/2016 A1C HPLC CPT-4: 05578 05/13/2016 FLU VACC PRSV FREE INC ANTIG 65 AND OLDER CPT-4: 30571 12/12/2015 ADMIN INFLUENZA VIRUS VAC CPT-4: G0008 12/12/2015 ROUTINE VENIPUNCTURE CPT-4: 46554 11/25/2015 ASSAY OF FREE THYROXINE CPT-4: 81009 11/25/2015 ASSAY THYROID STIM HORMONE CPT-4: 66635 11/25/2015 COMPREHEN METABOLIC PANEL CPT-4: 48938 11/25/2015 COMPLETE CBC W/AUTO DIFF WBC CPT-4: 38050 11/25/2015 LIPID PANEL CPT-4: 52809 11/25/2015 A1C HPLC CPT-4: 18879 11/25/2015 URINALYSIS NONAUTO W/O SCOPE CPT-4: 39627 05/21/2015 ROUTINE VENIPUNCTURE CPT-4: 05234 02/19/2015 METABOLIC PANEL TOTAL CA CPT-4: 05731 02/19/2015 PRESCRIP TRANSMIT VIA ERX SY CPT-4: G8553 02/19/2015 FLU VACC PRSV FREE INC ANTIG 65 AND OLDER CPT-4: 05221 12/20/2014 ADMIN INFLUENZA VIRUS VAC CPT-4: G0008 12/20/2014 URINALYSIS NONAUTO W/O SCOPE CPT-4: 51774 11/19/2014 URINE CULTURE/ COLONY COUNT CPT-4: 18370 11/19/2014 ROUTINE VENIPUNCTURE CPT-4: 99866 11/14/2014 ASSAY OF FREE THYROXINE CPT-4: 08864 11/14/2014 ASSAY THYROID STIM HORMONE CPT-4: 92376 11/14/2014 COMPREHEN METABOLIC PANEL CPT-4: 56747 11/14/2014 COMPLETE CBC W/AUTO DIFF WBC CPT-4: 61593 11/14/2014 LIPID PANEL CPT-4: 72018 11/14/2014 A1C HPLC CPT-4: 39328 11/14/2014 CERUM REMOVAL CPT-4: 55537 09/27/2014 PRESCRIP TRANSMIT VIA ERX SY CPT-4: G8553 07/11/2014 FLUZONE, 5ML (Medicare) CPT-4: Q2038 12/21/2013 ADMIN INFLUENZA VIRUS VAC CPT-4: G0008 12/21/2013 PRESCRIP TRANSMIT VIA ERX SY CPT-4: G8553 10/17/2013 PRESCRIP TRANSMIT VIA ERX SY CPT-4: G8553 09/24/2013 PRESCRIP TRANSMIT VIA ERX SY CPT-4: G8553 05/31/2013 ROUTINE VENIPUNCTURE CPT-4: 40679 03/28/2013 ASSAY OF FREE THYROXINE CPT-4: 30627 03/28/2013 ASSAY THYROID STIM HORMONE CPT-4: 00692 03/28/2013 COMPREHEN METABOLIC PANEL CPT-4: 11878 03/28/2013 COMPLETE CBC W/AUTO DIFF WBC CPT-4: 09401 03/28/2013 LIPID PANEL CPT-4: 11556 03/28/2013 A1C HPLC CPT-4: 01370 03/28/2013 VITAMIN B 12 FOLIC ACID CPT-4: 99130|09701 03/28/2013 PRESCRIP TRANSMIT VIA ERX SY CPT-4: G8553 03/26/2013 PRESCRIP TRANSMIT VIA ERX SY CPT-4: G8553 12/19/2012 FLUZONE, 5ML (Medicare) CPT-4: Q2038 11/27/2012 ADMIN INFLUENZA VIRUS VAC CPT-4: G0008 11/27/2012 PRESCRIP TRANSMIT VIA ERX SY CPT-4: G8553 10/04/2012 PRESCRIP TRANSMIT VIA ERX SY CPT-4: G8553 07/14/2012 ROUTINE VENIPUNCTURE CPT-4: 51413 02/23/2012 ASSAY OF FREE THYROXINE CPT-4: 65563 02/23/2012 ASSAY THYROID STIM HORMONE CPT-4: 54159 02/23/2012 COMPREHEN METABOLIC PANEL CPT-4: 22433 02/23/2012 COMPLETE CBC W/AUTO DIFF WBC CPT-4: 04206 02/23/2012 LIPID PANEL CPT-4: 78554 02/23/2012 A1C GLYCOSYLATED HEMOGLOBIN TEST CPT-4: 65912 012 CERUM REMOVAL CPT-4: 61354 02/22/2012 PRESCRIP TRANSMIT VIA ERX SY CPT-4: G8553 02/22/2012 PRESCRIP TRANSMIT VIA ERX SY CPT-4: G8553 12/15/2011 FLUZONE, 5ML (Medicare) CPT-4: Q2038 12/02/2011 ADMIN INFLUENZA VIRUS VAC CPT-4: G0008 12/02/2011 ASSAY, GLUCOSE, BLOOD QUANT CPT-4: 78168 09/21/2011 URINALYSIS NONAUTO W/O SCOPE CPT-4: 53828 09/16/2011 URINE CULTURE/ COLONY COUNT CPT-4: 90551 09/16/2011 ROUTINE VENIPUNCTURE CPT-4: 27623 09/15/2011 ASSAY OF FREE THYROXINE CPT-4: 47643 09/15/2011 ASSAY THYROID STIM HORMONE CPT-4: 43992 09/15/2011 COMPREHEN METABOLIC PANEL CPT-4: 00247 09/15/2011 COMPLETE CBC W/AUTO DIFF WBC CPT-4: 22341 09/15/2011 LIPID PANEL CPT-4: 43822 09/15/2011 ASSAY OF INSULIN CPT-4: 15373 09/15/2011 A1C GLYCOSYLATED HEMOGLOBIN TEST CPT-4: 37230 012 DRAIN/INJECT JOINT/BURSA CPT-4: 07879 08/16/2011 METHYLPREDNISOLONE 40 MG INJ CPT-4: J1030 08/16/2011 TRIAMCINOLONE ACET INJ NOS CPT-4: J3301 08/16/2011 PRESCRIP TRANSMIT VIA ERX SY CPT-4: G8553 08/03/2011 PRESCRIP TRANSMIT VIA ERX SY CPT-4: G8553 07/26/2011 METHYLPREDNISOLONE 40 MG INJ CPT-4: J1030 06/28/2011 DRAIN/INJECT JOINT/BURSA CPT-4: 72375 06/28/2011 TRIAMCINOLONE ACET INJ NOS CPT-4: J3301 06/28/2011 PRESCRIP TRANSMIT VIA ERX SY CPT-4: G8553 06/28/2011 ROUTINE VENIPUNCTURE CPT-4: 58385 04/01/2011 ASSAY OF FREE THYROXINE CPT-4: 82003 04/01/2011 ASSAY THYROID STIM HORMONE CPT-4: 36595 04/01/2011 COMPREHEN METABOLIC PANEL CPT-4: 13393 04/01/2011 COMPLETE CBC W/AUTO DIFF WBC CPT-4: 33708 04/01/2011 LIPID PANEL CPT-4: 84127 04/01/2011 PRESCRIP TRANSMIT VIA ERX SY CPT-4: G8553 03/31/2011 CERUM REMOVAL CPT-4: 77667 02/11/2011 PRESCRIP TRANSMIT VIA ERX SY CPT-4: G8553 02/11/2011 FLUZONE, 5ML (Medicare) CPT-4: Q2038 12/09/2010 ADMIN INFLUENZA VIRUS VAC CPT-4: G0008 12/09/2010 PRESCRIP TRANSMIT VIA ERX SY CPT-4: G8553 10/15/2010 URINALYSIS NONAUTO W/O SCOPE CPT-4: 90922 09/29/2010 URINE CULTURE/ COLONY COUNT CPT-4: 49193 09/29/2010 CUR TOBACCO NON-USER CPT-4: G8457 09/29/2010 ROUTINE VENIPUNCTURE CPT-4: 19120 07/06/2010 COMPLETE CBC W/AUTO DIFF WBC CPT-4: 45905 07/06/2010 COMPREHEN METABOLIC PANEL CPT-4: 63986 07/06/2010 LIPID PANEL CPT-4: 01954 07/06/2010 ASSAY THYROID STIM HORMONE CPT-4: 67943 07/06/2010 ASSAY OF FREE THYROXINE CPT-4: 96084 07/06/2010 PRESCRIP TRANSMIT VIA ERX SY CPT-4: G8553 07/02/2010 INJ TRIGGER POINT 1/2 MUSCL CPT-4: 27742 04/06/2010 TRIAMCINOLONE ACET INJ NOS CPT-4: J3301 04/06/2010 METHYLPREDNISOLONE 40 MG INJ CPT-4: J1030 04/06/2010 THER/PROPH/DIAG INJ SC/IM CPT-4: 31715 04/01/2010 KETOROLAC TROMETHAMINE INJ CPT-4: J1885 04/01/2010 PRESCRIP TRANSMIT VIA ERX SY CPT-4: G8553 01/22/2010 FLU VACCINE 3 YRS & > IM UP 64 CPT-4: 72292 0 ADMIN INFLUENZA VIRUS VAC CPT-4: G0008 12/10/2009 URINALYSIS NONAUTO W/O SCOPE CPT-4: 17277 12/02/2009 URINE CULTURE/ COLONY COUNT CPT-4: 05545 12/02/2009 PRESCRIP TRANSMIT VIA ERX SY CPT-4: G8553 12/02/2009 THER/PROPH/DIAG INJ SC/IM CPT-4: 53047 09/10/2009 VITAMIN B12 INJECTION CPT-4: J3420 09/10/2009 THER/PROPH/DIAG INJ SC/IM CPT-4: 09216 08/11/2009 VITAMIN B12 INJECTION CPT-4: J3420 08/11/2009 ROUTINE VENIPUNCTURE CPT-4: 02031 06/10/2009 Vital Signs Date Vital 03/13/2019 Blood [...] 1: 142/60 Code: 8480-6 BMI: 38.2 Code: 22538-3 Heart Rate 1: 48 bpm Height: 5'2" Respiratory Rate: 20 bpm SpO2: 98% Tempera ture: 36.7 (C) / 98.1 (F) Weight: 212 lbs 01/10/2018 Blood Pressure 1: 142/64 Code: 8480-6 BMI: 38.5 Code: 76733-3 Heart Rate 1: 52 bpm Height: 5'2" Respiratory Rate: 22 bpm SpO2: 96% Tempera ture: 36.1 (C) / 96.9 (F) Weight: 214 lbs 12/06/2017 Blood Pressure 1: 124/80 Code: 8480-6 BMI: 38.3 Code: 63522-0 Heart Rate 1: 68 bpm Height: 5'2" Respiratory Rate: 20 bpm Temperature: 36 .3 (C) / 97.4 (F) Weight: 213 lbs 11/22/2017 Blood Pressure 1: 132/78 Code: 8480-6 BMI: 37.6 Code: 54159-3 Heart Rate 1: 68 bpm Height: 5'2" Respiratory Rate: 20 bpm SpO2: 97% Tempera ture: 36.8 (C) / 98.2 (F) Weight: 209 lbs 10/20/2017 Blood Pressure 1: 150/76 Code: 8480-6 BMI: 38.5 Code: 57803-0 Heart Rate 1: 64 bpm Height: 5'2" Respiratory Rate: 20 bpm SpO2: 97% Tempera ture: 36.2 (C) / 97.2 (F) Weight: 214 lbs 09/27/2017 Blood Pressure 1: 122/74 Code: 8480-6 BMI: 38.2 Code: 79568-0 Heart Rate 1: 64 bpm Height: 5'2" Respiratory Rate: 18 bpm SpO2: 96% Tempera ture: 35.8 (C) / 96.4 (F) Weight: 212 lbs 08/16/2017 Blood Pressure 1: 124/78 Code: 8480-6 BMI: 37.8 Code: 95272-9 Heart Rate 1: 76 bpm Height: 5'2" Respiratory Rate: 20 bpm Temperature: 36 .8 (C) / 98.3 (F) Weight: 210 lbs 07/07/2017 Blood Pressure 1: 136/70 Code: 8480-6 BMI: 38.0 Code: 84837-5 Heart Rate 1: 68 bpm Height: 5'2" Respiratory Rate: 20 bpm SpO2: 97% Tempera ture: 36.8 (C) / 98.2 (F) Weight: 211 lbs 05/30/2017 Blood Pressure 1: 140/65 Code: 8480-6 Heart Rate 1: 75 bpm Respiratory Rate: 24 bpm SpO2: 95% Temperature: 37.0 (C) / 98.6 (F) We ight: 211 lbs 04/18/2017 Blood Pressure 1: 154/70 Code: 8480-6 BMI: 37.6 Code: 65738-1 Heart Rate 1: 76 bpm Height: 5'2" Respiratory Rate: 20 bpm SpO2: 98% Tempera ture: 36.9 (C) / 98.5 (F) Weight: 209 lbs 10/25/2016 Blood Pressure 1: 156/70 Code: 8480-6 BMI: 37.1 Code: 46130-6 Heart Rate 1: 72 bpm Height: 5'2" Respiratory Rate: 20 bpm SpO2: 97% Tempera ture: 37.0 (C) / 98.6 (F) Weight: 206 lbs 09/20/2016 Blood Pressure 1: 152/78 Code: 8480-6 BMI: 36.8 Code: 47939-4 Heart Rate 1: 78 bpm Height: 5'2" Respiratory Rate: 20 bpm SpO2: 98% Tempera ture: 36.1 (C) / 97.0 (F) Weight: 204 lbs 05/12/2016 Blood Pressure 1: 142/70 Code: 8480-6 BMI: 36.9 Code: 73080-7 Heart Rate 1: 64 bpm Height: 5'2" [...] 1: 122/64 Code: 8480-6 BMI: 39.1 Code: 98894-7 Heart Rate 1: 76 bpm Height: 5'2" Respiratory Rate: 20 bpm Temperature: 36 .8 (C) / 98.2 (F) Weight: 217 lbs 05/21/2015 Blood Pressure 1: 144/70 Code: 8480-6 BMI: 39.4 Code: 94245-8 Heart Rate 1: 76 bpm Height: 5'2" Respiratory Rate: 20 bpm Temperature: 36 .6 (C) / 97.9 (F) Weight: 219 lbs 02/19/2015 Blood Pressure 1: 152/60 Code: 8480-6 BMI: 39.6 Code: 55072-8 Heart Rate 1: 84 bpm Height: 5'2" Respiratory Rate: 20 bpm Temperature: 37 .0 (C) / 98.6 (F) Weight: 220 lbs 11/13/2014 Blood Pressure 1: 146/76 Code: 8480-6 BMI: 39.8 Code: 55691-4 Heart Rate 1: 88 bpm Height: 5'2" Respiratory Rate: 20 bpm Temperature: 37 .0 (C) / 98.6 (F) Weight: 221 lbs 09/27/2014 Blood Pressure 1: 132/70 Code: 8480-6 BMI: 39.1 Code: 35703-0 Heart Rate 1: 88 bpm Height: 5'2" Respiratory Rate: 20 bpm Temperature: 36 .4 (C) / 97.6 (F) Weight: 217 lbs 07/11/2014 Blood Pressure 1: 132/66 Code: 8480-6 BMI: 39.9 Code: 13848-6 Heart Rate 1: 72 bpm Height: 5'2" Respiratory Rate: 20 bpm Temperature: 36 .9 (C) / 98.4 (F) Weight: 218 lbs 05/23/2014 Blood Pressure 1: 136/80 Code: 8480-6 Heart Rate 1: 76 bpm Respiratory Rate: 20 bpm Temperature: 36.7 (C) / 98.0 (F) Weight: 224 lbs 03/20/2014 Blood Pressure 1: 134/78 Code: 8480-6 BMI: 39.7 Code: 31532-0 Heart Rate 1: 84 bpm Height: 5'2" Respiratory Rate: 20 bpm Temperature: 36 .7 (C) / 98.0 (F) Weight: 217 lbs 10/17/2013 Blood Pressure 1: 146/78 Code: 8480-6 BMI: 39.5 Code: 45984-1 Heart Rate 1: 82 bpm Height: 5'2" Respiratory Rate: 18 bpm Temperature: 35 .6 (C) / 96.1 (F) Weight: 216 lbs 09/24/2013 Blood Pressure 1: 134/70 Code: 8480-6 BMI: 37.9 Code: 08748-6 Heart Rate 1: 80 bpm Height: 5'3" Respiratory Rate: 20 bpm Temperature: 36 .8 (C) / 98.2 (F) Weight: 214 lbs 05/31/2013 Blood Pressure 1: 132/70 Code: 8480-6 BMI: 37.6 Code: 94278-7 Heart Rate 1: 80 bpm Height: 5'3" Respiratory Rate: 20 bpm Temperature: 36 .8 (C) / 98.3 (F) Weight: 212 lbs 03/26/2013 Blood Pressure 1: 116/74 Code: 8480-6 Heart Rate 1: 68 bpm Respiratory Rate: 20 bpm Temperature: 36.2 (C) / 97.1 (F) Weight: 212 lbs 12/19/2012 Blood Pressure 1: 132/82 Code: 8480-6 BMI: 37.4 Code: 03934-0 Heart Rate 1: 76 bpm Height: 5'3" Respiratory Rate: 20 bpm Temperature: 36 .7 (C) / 98.0 (F) Weight: 211 lbs 12/04/2012 Blood Pressure 1: 130/76 Code: 8480-6 He art Rate 1: 78 bpm 11/27/2012 Blood Pressure 1: 140/82 Code: 8480-6 BMI: 36.8 Code: 10140-9 Heart Rate 1: 66 bpm Height: 5'3" Respiratory Rate: 20 bpm Temperature: 36 .1 (C) / 96.9 (F) Weight: 208 lbs 10/04/2012 Blood Pressure 1: 138/80 Code: 8480-6 BMI: 36.4 Code: 06099-4 Heart Rate 1: 72 bpm Height: 5'4" Respiratory Rate: 20 bpm Temperature: 36 .7 (C) / 98.0 (F) Weight: 212 lbs 07/27/2012 Blood Pressure 1: 124/70 Code: 8480-6 BMI: 36.9 Code: 92523-6 Heart Rate 1: 60 bpm Height: 5'4" Temperature: 36.1 (C) / 97.0 (F) Weight: 215 lbs 07/14/2012 Blood Pressure 1: 132/86 Code: 8480-6 BMI: 36.9 Code: 09541-9 Heart Rate 1: 76 bpm Height: 5'4" Respiratory Rate: 20 bpm Temperature: 36 .8 (C) / 98.2 (F) Weight: 215 lbs 06/08/2012 Blood Pressure 1: 134/82 Code: 8480-6 BMI: 36.6 Code: 23709-8 Heart Rate 1: 72 bpm Height: 5'4" Respiratory Rate: 20 bpm Temperature: 36 .3 (C) / 97.4 (F) Weight: 213 lbs 02/22/2012 Blood Pressure 1: 142/80 Code: 8480-6 BMI: 37.1 Code: 47990-0 Heart Rate 1: 76 bpm Height: 5'4" Respiratory Rate: 20 bpm Temperature: 36 .8 (C) / 98.3 (F) Weight: 216 lbs 12/28/2011 Blood Pressure 1: 128/68 Code: 8480-6 BMI: 37.6 Code: 27426-8 Heart Rate 1: 72 bpm Height: 5'4" [...] 1: 128/78 Code: 8480-6 BMI: 38.1 Code: 02261-4 Heart Rate 1: 84 bpm Height: 5'4" Respiratory Rate: 20 bpm Temperature: 36 .9 (C) / 98.4 (F) Weight: 222 lbs 08/16/2011 Blood Pressure 1: 138/80 Code: 8480-6 BMI: 37.9 Code: 06275-8 Heart Rate 1: 74 bpm Height: 5'4" Temperature: 36.1 (C) / 97.0 (F) Weight: 221 lbs 08/03/2011 Blood Pressure 1: 126/78 Code: 8480-6 BMI: 38.4 Code: 42744-3 Heart Rate 1: 72 bpm Height: 5'4" Respiratory Rate: 20 bpm Temperature: 36 .7 (C) / 98.0 (F) Weight: 224 lbs 07/26/2011 Blood Pressure 1: 138/72 Code: 8480-6 BMI: 38.4 Code: 43760-3 Heart Rate 1: 72 bpm Height: 5'4" Respiratory Rate: 20 bpm Temperature: 36 .6 (C) / 97.9 (F) Weight: 224 lbs 06/28/2011 Blood Pressure 1: 122/78 Code: 8480-6 BMI: 38.8 Code: 28868-9 Heart Rate 1: 88 bpm Height: 5'4" Respiratory Rate: 20 bpm Temperature: 36 .6 (C) / 97.8 (F) Weight: 226 lbs 03/31/2011 Blood Pressure 1: 116/60 Code: 8480-6 BMI: 38.1 Code: 09045-5 Heart Rate 1: 92 bpm Height: 5'4" Respiratory Rate: 20 bpm Temperature: 36 .8 (C) / 98.2 (F) Weight: 222 lbs 02/11/2011 Blood Pressure 1: 118/62 Code: 8480-6 BMI: 37.9 Code: 25643-7 Heart Rate 1: 80 bpm Height: 5'4" Temperature: 36.5 (C) / 97.7 (F) Weight: 221 lbs 10/15/2010 Blood Pressure 1: 132/70 Code: 8480-6 Heart Rate 1: 84 bpm Respiratory Rate: 20 bpm Temperature: 36.7 (C) / 98.0 (F) Weight: 221 lbs 09/29/2010 Blood Pressure 1: 114/72 Code: 8480-6 BMI: 37.6 Code: 58666-7 Heart Rate 1: 76 bpm Height: 5'4" [...] 1: 120/70 Code: 8480-6 BMI: 38.3 Code: 44244-1 Heart Rate 1: 88 bpm Height: 5'5" [...] but had more that day. [place] [facility] [employer] began to feel very ill and became [...] 09/27/2014 pain, limb 07/11/2014 follow up 05/23/2014 [facility] fwup high blood pressure 03/20/2014 injection(s) [...] Diagnosis: Mixed hyperlipidemia[ICD10: E78.2] Vikki CIDER DO [employer] CPT-4: 69550 01/23/2019 ([id number]) NURSE/OUTPATIENT VISIT EST Diagnosis: FLU VACCINE[ICD10: Z23] Vikki PIKE SSujata PECKND ER DO [employer] CPT-4: 54649 12/26/2018 ([id number]) NURSE/OUTPATIENT VISIT EST Diagnosis: Chronic kidney disease, stage 1[ICD10: N18.1] Vikki CIDER DO [employer] CPT-4: 60221 12/15/2018 ([id number]) OFFICE/OUTPATIENT VISIT EST Diagnosis: Acute serous otitis media, left ear[ICD10: H65.02] Jennifer GUAMAN [employer] 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 CPT-4: 35867 08/14/2018 ([id number]) OFFICE/OUTPATIENT VISIT EST Diagnosis: Essential (primary) hypertension[ICD10: I10] Diagnosis: Gastro-esophageal reflux disease without esophagitis[ICD10: K21.9] Diagnosis: Urinary tract infection, site not specified[ICD10: N39.0] Vikki GUAMAN [employer] [facility] CPT-4: 40035 05/10/2018 ([id number]) OFFICE/OUTPATIENT VISIT EST Diagnosis: Gastro-esophageal reflux disease without esophagitis[ICD10: K21.9] Diagnosis: Epigastric pain[ICD10: R10.13] Vikki GUAMAN [employer] 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 CPT-4: 41815 01/10/2018 OFFICE/OUTPATIENT VISIT EST Diagnosis: Gastro-esophageal reflux disease without esophagitis[ICD10: K21.9] Diagnosis: Palpitations[ICD10: R00.2] Diagnosis: Urinary tract infection, site not specified[ICD10: N39.0] Diagnosis: Generalized anxiety disorder[ICD10: F41.1] Vikki GUAMAN [employer] 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 CPT-4: 24966 11/30/2017 OFFICE/OUTPATIENT VISIT EST Diagnosis: Epigastric pain[ICD10: R10.13] Diagnosis: Generalized anxiety disorder[ICD10: F41.1] Diagnosis: FLU VACCINE[ICD10: Z23] Vikki BALL [employer] [facility] CPT-4: 65412 11/22/2017 ([id number]) OFFICE/OUTPATIENT VISIT EST Diagnosis: Essential (primary) hypertension[ICD10: I10] Diagnosis: Hypoglycemia, unspecified[ICD10: E16.2] Diagnosis: Gastro-esophageal reflux disease without esophagitis[ICD10: K21.9] Vikki GUAMAN [facility] CPT-4: 28289 10/20/2017 ([id number]) OFFICE/OUTPATIENT VISIT EST Diagnosis: Dizziness and giddiness[ICD10: R42] Jennifer GUAMAN [employer] [facility] CPT-4: 30760 09/27/2017 ([id number]) OFFICE/OUTPATIENT VISIT EST Diagnosis: Cervicalgia[ICD10: M54.2] Diagnosis: Other spondylosis with radiculopathy, cervical region[ICD10: M47.22] Vikki GUAMAN [employer] [facility] CPT-4: 08472 08/16/2017 ([id number]) OFFICE/OUTPATIENT VISIT EST Diagnosis: Hypoglycemia, unspecified[ICD10: E16.2] Diagnosis: Other spondylosis with radiculopathy, cervical region[ICD10: M47.22] Diagnosis: Vertigo of central origin, 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] Diagnosis: 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] Vikki KEARNEYAKUA RobertsSujata DENIZ [facility] CPT-4: 32815 07/07/2017 ([id number]) OFFICE/OUTPATIENT VISIT EST Diagnosis: Benign paroxysmal vertigo, bilateral[ICD10: H81.13] Diagnosis: Otalgia, bilateral[ICD10: H92.03] Jennifer Rosario ROMMELJEANNA RobertsSujata DENIZ [facility] CPT-4: 50829 05/30/2017 ([id number]) OFFICE/OUTPATIENT VISIT EST Diagnosis: Low back pain[ICD10: M54.5] Diagnosis: Radiculopathy, lumbosacral region[ICD10: M54.17] Diagnosis: Left lower quadrant pain[ICD10: R10.32] Vikki CRISOSTOMO [facility]ata [facility] CPT-4: 12886 04/18/2017 ([id number]) OFFICE/OUTPATIENT VISIT EST Diagnosis: FLU VACCINE[ICD10: Z23] Vikki PIKE AlejandraSujata [facility] CPT-4: 97731 12/10/2016 ([id number]) OFFICE/OUTPATIENT VISIT EST Diagnosis: Mixed hyperlipidemia[ICD10: E78.2] Diagnosis: Essential (primary) hypertension[ICD10: I10] Diagnosis: Atherosclerotic heart disease of [place]art coronary artery without angina pectoris[ICD10: I25.10] Diagnosis: Impaired fasting glucose[ICD10: R73.01] Diagnosis: Other fatigue[ICD10: R53.83] Vikki PIKE AlejandraSujata DENIZ [facility] CPT-4: 12091 11/01/2016 ([id number]) OFFICE/OUTPATIENT VISIT EST Diagnosis: Pain in thoracic spine[ICD10: M54.6] Diagnosis: Other intervertebral disc degeneration, 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] Vikki Shah [facility] CPT-4: 59095 10/25/2016 ([id number]) OFFICE/OUTPATIENT VISIT EST Diagnosis: Left lower quadrant pain[ICD10: R10.32] Diagnosis: Low back pain[ICD10: M54.5] Vikki RUBI [facility] CPT-4: 72308 09/20/2016 ([id number]) OFFICE/OUTPATIENT VISIT EST Diagnosis: Mixed hyperlipidemia[ICD10: E78.2] Diagnosis: Essential (primary) hypertension[ICD10: I10] Diagnosis: Hypoglycemia, unspecified[ICD10: E16.2] Vikki Deniz GUAMAN [facility] CPT-4: 41610 05/13/2016 ([id number]) OFFICE/OUTPATIENT VISIT EST Diagnosis: Impaired fasting glucose[ICD10: R73.01] Diagnosis: Mastodynia[ICD10: N64.4] Diagnosis: Mixed hyperlipidemia[ICD10: E78.2] Diagnosis: Essential (primary) hypertension[ICD10: I10] Diagnosis: Other fatigue[ICD10: R53.83] Vikkikranthi Guaman VIKKI AlejandraSujata DENIZ [facility] CPT-4: 59279 05/12/2016 ([id number]) OFFICE/OUTPATIENT VISIT EST Diagnosis: Acute upper respiratory infection, unspecified[ICD10: J06.9] Yue KEARNEYQUELINE AlejandraSujata DENIZ [facility] CPT-4: 61274 03/18/2016 ([id number]) OFFICE/OUTPATIENT VISIT EST Diagnosis: Acute mastoiditis without complications, right ear[ICD10: H70.001] Vikki Ciscofunmilayosakshi CORTEZVIKKI AlejandraSujata DENIZ [facility] CPT-4: 69740 02/06/2016 ([id number]) OFFICE/OUTPATIENT VISIT EST Diagnosis: FLU VACCINE[ICD10: Z23] Vikki Ciscofunmilayosakshi CORTEZVIKKI Alyssa BALL [facility] CPT-4: 79393 12/12/2015 ([id number]) OFFICE/OUTPATIENT VISIT EST Diagnosis: Mixed hyperlipidemia[ICD10: E78.2] Diagnosis: Essential (primary) hypertension[ICD10: I10] Diagnosis: 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 CPT-4: 44762 05/21/2015 ([id number]) OFFICE/OUTPATIENT VISIT EST Diagnosis: Muscle weakness (generalized)[ICD10: M62.81] Diagnosis: Dizziness and giddiness[ICD10: R42] Diagnosis: Essential (primary) hypertension[ICD10: I10] Diagnosis: History of falling[ICD10: Z91.81] Vikki GUAMAN [employer] [facility] CPT-4: 58289 02/19/2015 ([id number]) OFFICE/OUTPATIENT VISIT EST Diagnosis: FLU VACCINE[ICD10: Z23] Vikki BALL [employer] [facility] CPT-4: 46228 12/20/2014 ([id number]) OFFICE/OUTPATIENT VISIT EST Diagnosis: Acute renal failure[ICD9: 584.9] Diagnosis: POLYURIA[ICD9: 788.42] Vikki Rees [employer] [facility] CPT-4: 60165 11/19/2014 ([id number]) OFFICE/OUTPATIENT VISIT EST Diagnosis: HYPERLIPIDEMIA NEC/NOS[ICD9: 272.4] Diagnosis: HYPERTENSION[ICD9: 401.9] Diagnosis: CAD[ICD9: 414.00] Diagnosis: Hyperglycemia[ICD9: 790.29] Diagnosis: MALAISE AND FATIGUE[ICD9: 780.79] Vikki GUAMAN [employer] [facility] CPT-4: 86734 11/14/2014 ([id number]) OFFICE/OUTPATIENT VISIT EST Diagnosis: MALAISE AND FATIGUE[ICD9: 780.79] Diagnosis: HYPOGLYCEMIA[ICD9: 251.2] Diagnosis: Grieving[ICD9: 309.0] Diagnosis: ABDOMINAL PAIN[ICD9: 789.00] Vikki GUAMAN [employer] [facility] CPT-4: 43950 11/13/2014 OFFICE/OUTPATIENT VISIT EST Diagnosis: CERUMEN IMPACTION[ICD9: 380.4] Diagnosis: EUSTACHIAN TUBE DYSFUNCTION[ICD9: 381.81] Jessenia GUAMAN [facility] CPT-4: 70185 09/27/2014 ([id number]) OFFICE/OUTPATIENT VISIT EST Diagnosis: Leg pain[ICD9: 729.5] Diagnosis: SUPERFIC PHLEBITIS-LEG[ICD9: 451.0] Vikki GUAMAN [facility] CPT-4: 99763 07/11/2014 ([id number]) OFFICE/OUTPATIENT VISIT EST Diagnosis: Thoracic back pain[ICD9: 724.1] Diagnosis: SPASM OF MUSCLE[ICD9: 728.85] Vikki GUAMAN [facility] CPT-4: 13279 05/23/2014 ([id number]) OFFICE/OUTPATIENT VISIT EST Diagnosis: DIZZINESS/VERTIGO[ICD9: 780.4] Diagnosis: Benign positional vertigo[ICD9: 386.11] Diagnosis: HYPERTENSION[ICD9: 401.9] Diagnosis: Suspicious nevus[ICD9: 238.2] Vikki GUAMAN [facility] CPT-4: 59076 03/20/2014 ([id number]) OFFICE/OUTPATIENT VISIT EST Diagnosis: FLU VACCINE[ICD10: Z23] Vikki CID [facility] CPT-4: 82385 12/21/2013 OFFICE/OUTPATIENT VISIT EST Diagnosis: SINUSITIS, ACUTE[ICD9: 461.9] Diagnosis: EUSTACHIAN TUBE DYSFUNCTION[ICD9: 381.81] Jessenia GUAMAN [facility] CPT-4: 88061 10/17/2013 ([id number]) OFFICE/OUTPATIENT VISIT EST Diagnosis: DIZZINESS/VERTIGO[ICD9: 780.4] Diagnosis: HYPERTENSION[ICD9: 401.9] Vikki MARTINEZ [facility] CPT-4: 73447 09/24/2013 ([id number]) OFFICE/OUTPATIENT VISIT EST Diagnosis: HYPERTENSION[ICD9: 401.9] Diagnosis: MALAISE AND FATIGUE[ICD9: 780.79] Diagnosis: SINUSITIS, ACUTE[ICD9: 461.9] Vikki GUAMAN [facility] CPT-4: 29832 05/31/2013 ([id number]) OFFICE/OUTPATIENT VISIT EST Diagnosis: HYPERLIPIDEMIA NEC/NOS[ICD9: 272.4] Diagnosis: HYPERTENSION[ICD9: 401.9] Diagnosis: B12 DEFIC ANEMIA NEC[ICD9: 281.1] Diagnosis: HYPOGLYCEMIA[ICD9: 251.2] Vikki Deniz MARTINEZ [facility] CPT-4: 42824 03/28/2013 OFFICE/OUTPATIENT VISIT EST Diagnosis: COUGH[ICD9: 786.2] Jessenia GUAMAN [facility] CPT-4: 74366 03/26/2013 OFFICE/OUTPATIENT VISIT EST Diagnosis: COUGH[ICD9: 786.2] Diagnosis: URI, ACUTE[ICD9: 465.9] Jessenia BALL [facility] CPT-4: 92075 12/19/2012 ([id number]) OFFICE/OUTPATIENT VISIT EST Diagnosis: HYPERTENSION[ICD9: 401.9] Diagnosis: CEPHALGIA[ICD9: 784.0] Diagnosis: ANXIETY STATE NOS[ICD9: 300.00] Diagnosis: FLU VACCINE[ICD9: V04.81] [facility] 30532 11/27/2012 ([id number]) OFFICE/OUTPATIENT VISIT EST Diagnosis: DIZZINESS/VERTIGO[ICD9: 780.4] Diagnosis: SINUSITIS, ACUTE[ICD9: 461.9] Diagnosis: Benign positional vertigo[ICD9: 386.11] Vikkiluther Guaman CAIO KEELUTHER Alyssa GUAMAN [facility] CPT-4: 24624 10/04/2012 OFFICE/OUTPATIENT VISIT EST Diagnosis: OTITIS MEDIA NOS[ICD9: 382.9] Vikki Ciscofunmilayosakshi GUAMAN [facility] CPT-4: 73184 07/27/2012 OFFICE/OUTPATIENT VISIT EST Diagnosis: Perforation of ear drum[ICD9: 384.20] Diagnosis: SINUSITIS, ACUTE[ICD9: 461.9] Vikki Guaman VIKKI [facility]a [facility]: 29917 07/14/2012 ([id number]) OFFICE/OUTPATIENT VISIT EST Diagnosis: Mastalgia[ICD9: 611.71] Vikki BALL [facility] CPT-4: 92063 06/08/2012 ([id number]) OFFICE/OUTPATIENT VISIT EST Diagnosis: HYPERLIPIDEMIA NEC/NOS[ICD9: 272.4] Diagnosis: HYPERTENSION[ICD9: 401.9] Diagnosis: DIZZINESS/VERTIGO[ICD9: 780.4] Diagnosis: Hyperglycemia[ICD9: 790.29] Diagnosis: MALAISE AND FATIGUE[ICD9: 780.79] Vikki Peckbhavya ROMMEL E SSujata DENIZ [facility] CPT-4: 03330 02/23/2012 ([id number]) OFFICE/OUTPATIENT VISIT EST Diagnosis: EUSTACHIAN TUBE DYSFUNCTION[ICD9: 381.81] Diagnosis: DIZZINESS/VERTIGO[ICD9: 780.4] Diagnosis: ABDOMINAL PAIN[ICD9: 789.00] Diagnosis: GERD[ICD9: 530.81] Diagnosis: CERUMEN IMPACTION[ICD9: 380.4] Vikki Peckfunmilayosakshi CORTEZVIKKI Alejandra Sujata DENIZ [facility] CPT-4: 71733 02/22/2012 OFFICE/OUTPATIENT VISIT EST Diagnosis: ABDOMINAL PAIN[ICD9: 789.00] Diagnosis: DYSPEPSIA[ICD9: 536.8] Vikki CORTEZLINE AlejandraSujata MATY Negrita [facility] CPT-4: 76601 12/28/2011 ([id number]) OFFICE/OUTPATIENT VISIT EST Diagnosis: ABDOMINAL PAIN[ICD9: 789.00] Diagnosis: DYSPEPSIA[ICD9: 536.8] Diagnosis: IBS[ICD9: 564.1] Vikki Deniz KEARNEYQUELINE AlejandraSujata DENIZ [facility] CPT - 4: 91017 12/15/2011 OFFICE/OUTPATIENT VISIT EST Diagnosis: DIZZINESS/VERTIGO[ICD9: 780.4] Diagnosis: HYPOGLYCEMIA[ICD9: 251.2] Vikki Ciscobhavya PIKE AlejandraSujata CISCO MARTINEZ [facility] CPT-4: 09830 09/21/2011 ([id number]) OFFICE/OUTPATIENT VISIT EST Diagnosis: URINARY TRACT INFECTION[ICD9: 599.0] Vikki BRAVO AlejandraSujata DENIZ [facility] CPT-4: 26555 09/16/2011 ([id number]) OFFICE/OUTPATIENT VISIT EST Diagnosis: HYPERLIPIDEMIA NEC/NOS[ICD9: 272.4] Diagnosis: HYPERTENSION[ICD9: 401.9] Diagnosis: MALAISE AND FATIGUE[ICD9: 780.79] Diagnosis: DIZZINESS/VERTIGO[ICD9: 780.4] Vikki GUAMAN [employer] [facility] CPT-4: 24120 09/15/2011 ([id number]) OFFICE/OUTPATIENT VISIT EST Diagnosis: DIZZINESS/VERTIGO[ICD9: 780.4] Diagnosis: MALAISE AND FATIGUE[ICD9: 780.79] Diagnosis: HYPERTENSION[ICD9: 401.9] Vikki MARTINEZ [employer] 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 CPT-4: 44983 08/16/2011 ([id number]) OFFICE/OUTPATIENT VISIT EST Diagnosis: PAIN, LOWER BACK[ICD9: 724.2] Diagnosis: SPASM OF MUSCLE[ICD9: 728.85] Diagnosis: SCIATICA[ICD9: 724.3] Diagnosis: Lumbar degenerative disc disease[ICD9: 722.52] Vikki GUAMAN [employer] [facility] CPT-4: 49751 08/03/2011 ([id number]) OFFICE/OUTPATIENT VISIT EST Diagnosis: PAIN IN THORACIC SPINE[ICD9: 724.1] Diagnosis: SPASM OF MUSCLE[ICD9: 728.85] Vikki GUAMAN [employer] [facility] CPT-4: 01650 07/26/2011 ([id number]) OFFICE/OUTPATIENT VISIT EST Diagnosis: PAIN, LOWER BACK[ICD9: 724.2] Diagnosis: SPASM OF MUSCLE[ICD9: 728.85] Diagnosis: Sacroiliac dysfunction[ICD9: 739.4] Diagnosis: Lumbar degenerative disc disease[ICD9: 722.52] Vikki PECKNDER [facility] CPT-4: 95265 06/28/2011 OFFICE/OUTPATIENT VISIT EST Diagnosis: MALAISE AND FATIGUE[ICD9: 780.79] Diagnosis: HYPOTENSION[ICD9: 458.9] Diagnosis: CAD[ICD9: 414.00] Vikki CIDER [facility] CPT-4: 35140 03/31/2011 OFFICE/OUTPATIENT VISIT EST Diagnosis: SINUSITIS, ACUTE[ICD9: 461.9] Diagnosis: PHARYNGITIS, ACUTE[ICD9: 462] Diagnosis: CERUMEN IMPACTION[ICD9: 380.4] Vikki GUAMAN DO [facility] CPT-4: 29511 02/11/2011 OFFICE/OUTPATIENT VISIT EST Diagnosis: PAIN IN THORACIC SPINE[ICD9: 724.1] Diagnosis: GERD[ICD9: 530.81] Diagnosis: DIZZINESS/VERTIGO[ICD9: 780.4] Vikki PECKNDER [facility] CPT-4: 20780 10/15/2010 OFFICE/OUTPATIENT VISIT EST Vikki PECK NDER DO [facility] CPT- 4: 81957 09/29/2010 ([id number]) OFFICE/OUTPATIENT VISIT EST Vikki PATHAK SSujata ORENDER DO [facility] CPT-4: 92057 07/02/2010 ([id number]) OFFICE/OUTPATIENT VISIT, EST Diagnosis: PAIN, LOWER BACK[ICD9: 724.2] Vikki Deniz PIKE SSujata [facility]END[facility] CPT-4: 53460 04/06/2010 ([id number]) OFFICE/OUTPATIENT VISIT, EST Vikki KEELUTHER SSujata [facility]END[facility] CPT-4: 02400 04/01/2010 ([id number]) OFFICE/OUTPATIENT VISIT, EST Vikki Guaman CAIO KRANTHI SSujata [facility]END[facility] CPT-4: 70988 01/22/2010 ([id number]) OFFICE/OUTPATIENT VISIT, EST Vikkikranthi Peckfunmilayosakshi CAIO CHILANGOLUTHER Alyssa [facility]ENDER DO [facility] CPT-4: 73396 12/02/2009 ([id number]) OFFICE/OUTPATIENT VISIT, BRYAN Shah [facility] CPT-4: 79199 10/21/2009 ([id number]) OFFICE/OUTPATIENT VISIT, EST Vikki CRISOSTOMO SSujata [facility] CPT-4: 65870 09/10/2009 ([id number]) OFFICE/OUTPATIENT VISIT, BRYAN CRISOSTOMO SSujata [facility] CPT-4: 02809 08/11/2009 ([id number]) OFFICE/OUTPATIENT VISIT, BRYAN Shah [facility] CPT-4: 45344 06/09/2009 Plan of Care Planned Activity Notes Codes Status Date Appointment: Vikki Guaman WPtel: [address] [place] [address] LAB 01/23/2019 Appointment: Vikki Guaman WPtel: [address] [place] [address] US INJECTION 12/26/2018 Patient Education: INFLUENZA VACCINE CDC Completed 12/26/2018 Appointment: Vikki Guaman WPtel: [address] [place] [address] LAB 12/15/2018 Visit Diagnosis Plan: Acute serous [...] ICD-10 : H65.02 11/07/2018 Appointment: Jennifer Rosario [address] [place] [address] ACUTE ILLNESS 11/07/2018 Visit Diagnosis Plan: Urinary [...] ICD-10 : R53.83 08/14/2018 Appointment: Vikki Guamantel: [address] [place], [place] [phone] US FOLLOW UP 08/14/2018 Visit Diagnosis Plan: [...] : K21.9 05/10/2018 Appointment: Vikki Guaman WPtel: [address] [place], [place] [phone] [place] FOLLOW UP 05/10/2018 Patient Education: metoprolol tartrate- [employer] [facility] [id number] [email or web address] Completed 05/10/2018 Appointment: Vikki Guaman WPtel: [address] [place], [place] [id number] [place] CANCELED 04/21/2018 Visit Diagnosis Plan: Gastro-esophageal reflux disease without esophagitis Discussion: Continue protonix and carafate Proceed with updated EGD ICD-9 : 530.81 ICD-10 : K21.9 02/14/2018 Visit Diagnosis Plan: Epigastric pain Discussion: [facility] CT abdomen/pelvis due to ongoing abdominal pain ICD-9 : 789.06 ICD-10 : R10.13 02/14/2018 Appointment: Vikki [facility]aman [facility]Ptel[facility] [phone] [facility] [facility] 02/14/2018 Care Plan: CT PELVIS W/O DYE LOINC : 361 08-9 Pending 02/14/2018 Care Plan: CT ABDOMEN W/O DYE LOINC : 36 103-0 Pending 02/14/2018 Care Plan: Referral Order SNOMED-CT : [id number] Pending 02/14/2018 Visit Diagnosis Plan: 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 Discussion: S/P [...] : I10 01/10/2018 Appointment: Vikki Guaman WPtel: [facility] [facility] 01/10/2018 Visit Diagnosis [...] : R00.2 12/06/2017 Appointment: Vikki Guaman WPtel: [address] [place] [address] FOLLOW UP 12/06/2017 Patient Education: Patient Medication Summary Completed 12/06/2017 Appointment: Vikki Guaman WPtel: [address] [place] [address] LAB 11/30/2017 Patient Education: Patient Medication Summary [...] : F41.1 11/22/2017 Appointment: Vikki Guaman WPtel: [address] [place] [address] FOLLOW UP 11/22/2017 Patient Education: Patient Medication [...] : K21.9 10/20/2017 Appointment: Vikki Guaman WPtel: [address] [place] [address] ACUTE ILLNESS 10/20/2017 Patient Education: Patient Medication Summary Completed 10/20/2017 Visit Diagnosis Plan: Dizziness and giddiness Discussi on: blood work to be completed in office including cmp, cbc, troponin to rule out glucose intolerance, infection, dehydration. instructed patient that she needs to see her validation analyst sooner than oct and patient requested we contact dr. brown's office. will have front office make appt. patient has carotid doppler annually. ICD-9 : 780.4 ICD-10 : R42 09/27/2017 Appointment: Jennifer Rosario [address] [place] [address] ACUTE ILLNESS 09/27/2017 Patient Education: Patient Medication Summary Completed 09/27/2017 Visit Diagnosis Plan: Cervicalgia Discussion: Complete course of PT since symptoms improved Continue stretching exercises Notify if symptoms return or worsen ICD-9 : 723.1 ICD-10 : M54.2 08/16/2017 Appointment: Vikki Guaman WPtel: [address] [place], [place] [phone] FOLLOW UP 08/16/2017 Patient Education: Patient Medication [...] : H81.43 07/07/2017 Appointment: Vikki Guaman WPtel: [facility]4 [facility] 07/07/2017 Patient Education: Patient Medication Summary Completed 07/07/2017 Care Plan: MRI NECK SPINE W/O DYE LOINC : 01436-4 Pending 07/07/2017 Visit Diagnosis Plan: Otalgia, bilateral [...] ICD-10 : H81.13 05/30/2017 Appointment: Jennifer Rosario [address] [place] [address] ACUTE ILLNESS 05/30/2017 Patient Education: Patient Medication [...] : M54.17 04/18/2017 Appointment: Vikki Guaman WPtel: [address] [place] [address] ACUTE ILLNESS 04/18/2017 Patient Education: Patient Medication Summary Completed 04/18/2017 Appointment: Vikki Guaman WPtel: [address] [place] [address] US INJECTION 12/10/2016 Patient Education: Patient Medication Summary Completed 12/10/2016 Appointment: Vikki Guaman WPtel: [address] [place] [address] US LAB 11/01/2016 Patient Education: Patient Medication [...] : M51.36 10/25/2016 Appointment: Vikki Guaman WPtel: [address] [place], [place] [phone] US FOLLOW UP 10/25/2016 Patient Education: Patient [...] R10.32 09/20/2016 Appointment: Vikki Guaman WPtel: [address] [place], [place] [phone] ACUTE ILLNESS 09/20/2016 Patient Education: Patient Medication Summary Completed 09/20/2016 Appointment: Vikki Guaman WPtel: [address] [place] [address] US LAB 05/13/2016 Patient Education: Patient Medication [...] : N64.4 05/12/2016 Appointment: Vikki Guaman WPtel: [address] [place], [place] [phone] 05/11 confirmed `sl ACUTE ILLNESS 05/12/2016 Patient Education: Patient Medication Summary Completed 05/12/2016 Care Plan: MAMMOGRAM SCREENING LOINC : 2 6347-5 Pending 05/12/2016 Visit Diagnosis Plan: Acute upper respiratory infectio n, unspecified Discussion: Exam is reassuring Likely viral illness Supportive care reviewed and encouraged Follow up PRN ICD-9 : 465.9 ICD-10 : J06.9 03/18/2016 Appointment: Yue Moya [address] [place] [address] ACUTE ILLNESS 03/18/2016 Patient Education: Patient Medication Summary Completed 03/18/2016 Visit Plan: Supportive care. Rest, Fluid s, Tylenol/Motrin prn fever or bodyaches. Notify if worsening symptoms. 02/06/2016 Appointment: Vikki Guaman WPtel: [address] [place] [address] ACUTE ILLNESS 02/06/2016 Patient Education: Patient Medication Summary Completed 02/06/2016 Appointment: Vikki Guaman WPtel: [address] [place], [place] [phone] US INJECTION 12/12/2015 Patient Education: Patient Medication Summary Completed 12/12/2015 Appointment: Vikki Guamantel: [address] [place], [place] [phone] [place] LAB 11/25/2015 Patient Education: Patient Medication Summary Completed 11/25/2015 Visit Plan: Add miralax daily Use daily probiotic and metamucil and push fluids Notify if worsens/persists 08/26/2015 Appointment: Vikki Guaman WPtel: [address] [place], [place] [phone] 08/25/15 confirmed ~sl ACUTE ILLNESS 08/26/2015 Patient Education: Patient Medication Summary Completed 08/26/2015 Visit Plan: No NSAIDs Kidney function di scussed Discussed hydration Monitor lab every 4months so will check CMP, HbA1C next month 05/21/2015 Appointment: Vikki Guaman WPtel: [address] [place], [place] [address] 05/19 confirmed ~sl ACUTE ILLNESS 05/21/2015 Patient Education: Patient Medication Summary Completed 05/21/2015 Visit Plan: Vestibular exercises Refill flonase Strict low Na diet--discussed that needs to read labels Rx for walker with chair given due to muscle weakness/unsteadiness Has carotids and abdominal aorta and legs checked in March Check Chem 7 02/19/2015 Appointment: Vikki Guaman WPtel: [address] [place], [place] [phone] 02/18/15 appt confirmed cn FOLLOW UP 02/19 Patient Education: Patient Medication Summary Completed 02/19/2015 Patient Education: Vertigo Completed 1 04/22/2014 Appointment: Vikki Guaman WPtel: [address] [place], [place] [phone] US INJECTION 12/20/2014 Patient Education: Patient Medication Summary Completed 12/20/2014 Appointment: Vikki Guaman WPtel: [address] [place], [place] [phone] 11/19/2014 Patient Education: Patient Medication Summary Completed 11/19/2014 Referral: Edy Cheek WPtel: #1 [facility] Katerina [address] Referral Completed 11/18/2014 Appointment: Vikki Guaman WPtel: [address] [place] [address] LAB 11/14/2014 Patient Education: Patient Medication Summary Completed 11/14/2014 Visit Plan: Check CMP, CBC, TSH, Free T4 , B12, Lipids, HbA1C Discussed 6 small meals a day each with protein Would likely benefit from antidepressant Update colonoscopy 11/13/2014 Appointment: Vikki Guaman WPtel: [address] [place], [place] [phone] 11/12/14 confirmed ACUTE ILLNESS 11/13/2014 Patient Education: Patient Medication Summary Completed 11/13/2014 Visit Plan: Cerumen flush with warm wate r and peroxide - good results Resume Nasonex nasal spray daily Recommended Debrox earwax removal drops 09/27/2014 Appointment: Jessenia Francis WPtel: [address] [place] [address] ACUTE ILLNESS 09/27/2014 Patient Education: Patient Medication Summary Completed 09/27/2014 Visit Plan: Continue aspirin daily Add m eloxicam for 1week [employer]vate [employer] Ice Call on Tuesday07/11/2014 Appointment: Vikki Guaman WPtel: [address] [place] [address] ACUTE ILLNESS 07/11/2014 Patient Education: Patient Medication Summary Completed 07/11/2014 Visit Plan: Been using baclofen at [facility] and has helped some PT for next 2-4weeks 05/23/2014 Appointment: Vikki Guaman WPtel: [address] [place] [address] Hospital Follow Up 05/23/2014 Patient Education: Patient Medication Summary Completed 05/23/2014 Appointment: Vikki Guaman WPtel: [address] [place] [address] LAB 05/10/2014 Appointment: Vikki Guaman WPtel: [address] [place] [address] feeling better, weather - FOLLOW UP 04/07 Referral: Edy Cheek WPtel: 1 [facility] Referral Appointment Requested 04/03/2014 Visit Plan: Continue exercise and curren t meds See surgery for removal of right arm lesion 03/20/2014 Appointment: Vikki Guaman WPtel: [address] [place] [address] FOLLOW UP 03/20/2014 Patient Education: Patient Medication Summary Completed 03/20/2014 Appointment: Vikki Guaman WPtel: [address] [place] [address] INJECTION 12/21/2013 Patient Education: Patient Medication Summary Completed 12/21/2013 Appointment: Jessenia Francis WPtel: [address] [place] [address] ACUTE ILLNESS 10/17/2013 Patient Education: Patient Medication Summary Completed 10/17/2013 Visit Plan: Discussed that likely lumbar etiology for leg weakness Will change amlodopine to low dose dyazide and see if helps legs and inner ear 09/24/2013 Appointment: Vikki Guaman WPtel: [address] [place] [address] FOLLOW UP 09/24/2013 Patient Education: Patient Medication Summary Completed 09/24/2013 Visit Plan: Ceftin and continue claritin /flonase Decrease amlodopine to 2.5mg q HS until fwup with Card due to weakness 05/31/2013 Appointment: Vikki Guaman WPtel: [address] [place] [address] ACUTE ILLNESS 05/31/2013 Patient Education: Patient Medication Summary Completed 05/31/2013 Appointment: Vikki Guaman WPtel: [address] [place] [address] LAB 03/28/2013 Patient Education: Patient Medication Summary Completed 03/28/2013 Appointment: Jessenia Francis WPtel: [address] [place] [address] ACUTE ILLNESS 03/26/2013 Patient Education: Patient Medication Summary Completed 03/26/2013 Visit Plan: Supportive care. Rest, Fluid s, Tylenol prn fever or bodyaches. Notify if worsening symptoms. Ceftin 12/19/2012 Appointment: Jessenia Francis WPtel: [address] [place] [address] ACUTE ILLNESS 12/19/2012 Patient Education: Patient Medication Summary Completed 12/19/2012 Appointment: Vikki Guaman WPtel: [address] [place] [address] CHECK 12/04/2012 Patient Education: Patient Medication Summary Completed 12/04/2012 Appointment: Vikki Guaman WPtel: [address] [place], [place] [phone] ER Follow UP 11/27/2012 Patient Education: Patient Medication Summary Completed 11/27/2012 Visit Plan: Restart flonase BID Use mecl izine 25mg q HS Vestibular exercises Claritin 10mg q AM See ENT if doesn't resolve 10/04/2012 Appointment: Vikki Guaman WPtel: [address] [place], [place] [phone] ACUTE ILLNESS 10/04/2012 Patient Education: Patient Medication Summary Completed 10/04/2012 Visit Plan: Will continue to observe 07/27/2012 Appointment: Vikki Guaman WPtel: [address] [place], [place] [phone] FOLLOW UP 07/27/2012 Patient Education: Patient Medication [...] ear recheck. 07/14/2012 Appointment: Evelyn Santos WPtel: [address] [place], [place] [phone] ACUTE ILLNESS 07/14/2012 Patient Education: Patient Medication Summary Completed 07/14/2012 Visit Plan: Decrease caffeine intake Kristin ck Bilateral Mammogram with US of left breast 06/08/2012 Appointment: Vikki Guaman WPtel: [address] [place], [place] [phone] ACUTE ILLNESS 06/08/2012 Patient Education: Patient Medication Summary Completed 06/08/2012 Appointment: Alisia Campbell WPtel: [address] [place], [place] [phone] appt scheduled 04/06 ACUTE ILLNESS 04/10/2012 Appointment: Vikki Guaman WPtel: [address] [place], [place] [phone] LAB 02/23/2012 Patient Education: Patient Medication Summary Completed 02/23/2012 Visit Plan: Continue off carafate and se e how does Continue probiotic Add Vestibular exercises and use meclizine prn Continue Nasonex Check fasting lab including CMP, Lipids, CBC, TSH, Free T4, HbA1C 02/22/2012 Appointment: Vikki Guaman WPtel: [address] [place], [place] [phone] FOLLOW UP 02/22/2012 Patient Education: Patient Medication Summary Completed 02/22/2012 Visit Plan: Continue carafate for 4more weeks at current dose then decrease to BID for 2wks then q HS 12/28/2011 Appointment: Vikki Guaman WPtel: [address] [place], [place] [phone] FOLLOW UP 12/28/2011 Patient Education: Patient Medication Summary Completed 12/28/2011 Visit Plan: Continue omeprazole Add Judi fate 1gm po q AC Add daily probiotic 12/15/2011 Appointment: Vikki Guaman WPtel: [address] [place], [place] [phone] ACUTE ILLNESS 12/15/2011 Patient Education: Patient Medication Summary Completed 12/15/2011 Appointment: Vikki Guaman WPtel: [address] [place], [place] [phone] US INJECTION 12/02/2011 Patient Education: Patient Medication Summary Completed 12/02/2011 Visit Plan: Diabetic Diet Accuchecks BID alternating times Hold onglyza and Januvia for now and continue diet and exercise and weight loss and lana BAPTITSE Discussed hypoglycemia and snack of peanut butter and crackers with juice or milk 09/21/2011 Appointment: Vikki Guaman WPtel: [address] [place], [place] [phone] WORK IN 09/21/2011 Patient Education: Patient Medication Summary Completed 09/21/2011 Appointment: Vikki Guaman WPtel: [address] [place] [address] 09/16/2011 Patient Education: Patient Medication Summary Completed 09/16/2011 Appointment: Vikki Guaman WPtel: [address] [place] [address] 09/15/2011 Patient Education: Patient Medication Summary Completed 09/15/2011 Appointment: Vikki Guaman WPtel: [address] [place] [address] ACUTE ILLNESS 09/13/2011 Patient Education: Patient Medication Summary Completed 09/13/2011 Visit Plan: Injection to Right SI joint as above Pt will call in 3 days on pain Has PT starting in 2wks. 08/16/2011 Appointment: Vikki Guaman WPtel: [address] [place] [address] ACUTE ILLNESS 08/16/2011 Patient Education: Patient Medication Summary Completed 08/16/2011 Visit Plan: OMT done Start PT May need u pdated MRI if need to consider epidural Prednisone 08/03/2011 Appointment: Vikki Guaman WPtel: [address] [place] [address] OMT 08/03/2011 Patient Education: Patient Medication Summary Completed 08/03/2011 Visit Plan: Flexeril and Vimovo OMT done Daily stretches 07/26/2011 Appointment: Vikki Guaman WPtel: [address] [place] [address] ACUTE ILLNESS 07/26/2011 Patient Education: Patient Medication Summary Completed 07/26/2011 Visit Plan: OMT done Daily stretches Roque st heat or biofreeze Right SI joint injection Call in 1week Vimovo BID 06/28/2011 Appointment: Vikki Guaman WPtel: [address] [place] [address] ACUTE ILLNESS 06/28/2011 Patient Education: Patient Medication Summary Completed 06/28/2011 Appointment: Vikki Guamantel: [address] [place], [place] [phone] LAB 04/01/2011 Patient Education: Patient Medication Summary Completed 04/01/2011 Visit Plan: Decrease amlodopine to 1.25m g daily Schedule with Cardiology Fasting lab in AM 03/31/2011 Appointment: Vikki Guaman WPtel: [address] [place], [place] [phone] ACUTE ILLNESS 03/31/2011 Patient Education: Patient Medication Summary Completed 03/31/2011 Visit Plan: Saline nasal flushes prn. Ty lenol/Motrin prn headache. Notify if persists/symptoms worsening. Cerumen removal from ears as above 02/11/2011 Appointment: Vikki Guaman WPtel: [address] [place] [address] ACUTE ILLNESS 02/11/2011 Patient Education: Patient Medication Summary Completed 02/11/2011 Appointment: Vikki Guaman WPtel: [address] [place] [address] [place] INJECTION 12/09/2010 Patient Education: Patient Medication Summary Completed 12/09/2010 Visit Plan: Continue vimovo for 1more we ek Increase Omeprazole to BID for 1mo then resume QD if stomach improved Vestibular exercises with meclizine q HS for next week 10/15/2010 Appointment: Vikki Guaman WPtel: [address] [place], [place] [phone] FOLLOW UP 10/15/2010 Patient Education: Patient Medication Summary Completed 10/15/2010 Appointment: Vikki Guaman WPtel: [address] [place] [address] ACUTE ILLNESS 09/29/2010 Patient Education: Patient Medication Summary Completed 09/29/2010 Appointment: Vikki Guaman WPtel: [address] LAB 07/06/2010 Patient Education: Patient Medication Summary Completed 07/06/2010 Visit Plan: Saline nasal flushes prn. Ty lenol/Motrin prn headache. Notify if persists/symptoms worsening. Add Veramyst Increase Omeprazole to 20mg po BID 07/02/2010 Appointment: Vikki Guaman WPtel: [address] [place] [address] ACUTE ILLNESS 07/02/2010 Patient Education: Patient Medication Summary Completed 07/02/2010 Appointment: Vikki Guaman WPtel: [address] [place] [address] FOLLOW UP 04/06/2010 Patient Education: Patient Medication Summary Completed 04/06/2010 Appointment: Vikki Guaman WPtel: [address] [place] [address] ACUTE ILLNESS 04/01/2010 Patient Education: Patient Medication Summary Completed 04/01/2010 Visit Plan: Nasocourt sample given. Pt. will notify if symptoms are worse on Tuesday. 01/22/2010 Appointment: Alisia Campbell WPtel: [address] [place] [address] ACUTE ILLNESS 01/22/2010 Patient Education: Patient Medication Summary Completed 01/22/2010 Appointment: Vikki Guaman WPtel: [address] [place], [place] [phone] [place] INJECTION 12/10/2009 Patient Education: Patient Medication Summary Completed 12/10/2009 Appointment: Vikki Guaman WPtel: [address] [place] [address] FOLLOW UP 12/02/2009 Patient Education: Patient Medication Summary Completed 12/02/2009 Patient Education: Lexapro Completed 0 12/02/2009 Visit Plan: May proceed with hiatal ryan ia repair per Card. so will contact Dr. Mariscal's office to proceed with surgery Trial of Lexapro 5mg QD plus use xanax prn 10/21/2009 Appointment: Vikki Guaman WPtel: [address] [place] [address] FOLLOW UP 10/21/2009 Patient Education: Patient Medication Summary Completed 10/21/2009 Visit Plan: B12 given Cont oral B12 and iron Fwup 1mo for B12 Proceed with hiatal hernia repair once card clearance 09/10/2009 Appointment: Vikki Guaman WPtel: [address] [place] [address] FOLLOW UP 09/10/2009 Patient Education: Patient Medication Summary Completed 09/10/2009 Appointment: Vikki Guaman WPtel: [address] [place] [address] FOLLOW UP 08/11/2009 Patient Education: Patient Medication Summary Completed 08/11/2009 Appointment: Vikki Guaman WPtel: [address] [place] [address] [place] LAB 06/10/2009 Patient Education: Patient Medication Summary Completed 06/10/2009 Visit Plan: Check fasting lab in AM--CMP ,Lipids, CBC, Vit D, TSH,FreeT4, B12 06/09/2009 Appointment: Vikki Guaman WPtel: [address] [place] [address] FOLLOW UP 06/09/2009 Patient Education: Patient Medication Summary Completed 06/09/2009 Referral: Edy Cheek WPtel: [address] [place] [address] [place] Referral Appointment Requested Referral: Edy Cheek WPtel: [address] Referral Initiated Instructions Comment . Supportive [...]
--- OUTSIDE RECORDS SUMMARY | 2019-04-25 20:45 | XMS REPORT | CCD ---
Author Author Evelyne Guaman D.O. 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 PP Unavailable CCM Unavailable Summary Purpose Interface Exchange Insurance Providers Payer name Policy type / Coverage type Covered republican ID Effective Begin Date Effective End Date WPS MEDICARE PART B [place] Medicare Part B [id number] 2017 Unknown [facility] Medicare Part B [id number] Unknown Family history Father Diagnosis Age At Onset Heart disease Unknown Mother Diagnosis Age At Onset Heart disease Unknown Cancer Unknown Social History Social History Element Codes Description Effective Dates Tobacco history SNOMED CT: 772869379 Never smoker 09/29/2010 Marital status Unknown [place] 06/09/2009 Number of children Unknown 9 06/09/2009 Allergies, Adverse Reactions, Alerts Substance Reaction Codes Entered Date Inactivated Date Status * NO KNOWN FOOD ROHAN RGIES Unknown 06/09/2009 No Inactive Date Active _ Unknown 06/09/2009 No Inactive Date Active _ Unknown 05/10/2018 No Inactive Date Active QUINIDINE-QUININE AN ALOGUES hives, Unknown 06/10/19 10 No Inactive Date Active Past Medical History Illness Codes Condition Status Onset Date Resolved Date Acute serous otitis media, left ear ICD-9: 381.01 ICD-10: H65.02 Active 11/07/2018 Unknown Coronary atheroscler osis due to calcified coronary lesion ICD-9: 414.00 ICD-10: I25.84 Active 11/30/2017 Unknown Essential (primary) hypertension ICD-9: 401.9 ICD-10: I10 Active 09/24/2013 Unknown Hypoglycemia, unspec ified ICD-9: 251.2 ICD-10: E16.2 Active 05/13/2016 Unknown Other fatigue ICD-9: 780.79 ICD-10: R53.83 Active 05/12/2016 Unknown Urinary tract infect ion, site not specified ICD-9: 599.0 ICD-10: N39.0 Active 12/06/2017 Unknown Gastro-esophageal re flux disease without esophagitis ICD-9: 530.81 ICD-10: K21.9 Active 10/20/2017 Unknown Epigastric pain ICD-9: 789.06 ICD-10: R10.13 Active 11/22/2017 Unknown Atherosclerotic hear t disease of [place] coronary artery without angina pectoris ICD-9: 414.00 ICD-10: I25.10 Active 01/10/2018 Unknown Generalized anxiety disorder ICD-9: 300.00 ICD-10: F41.1 Active 11/22/2017 Unknown Palpitations ICD-9: 785.1 ICD-10: R00.2 Active 12/06/2017 Unknown Dizziness and giddiness ICD-9: 780.4 ICD-10: R42 Active 09/24/2013 Unknown Occlusion and stenos is of bilateral carotid arteries ICD-9: 433.10 ICD-10: I65.23 Active 11/30/2017 Unknown FLU VACCINE ICD-9: V04.81 ICD-10: Z23 Active 12/02/2011 Unknown Cervicalgia ICD-9: 723.1 ICD-10: M54.2 Active 08/16/2017 Unknown Other spondylosis wi th radiculopathy, cervical region ICD-9: 721.0 ICD-10: M47.22 Active 07/07/2017 Unknown Cervicocranial syndrome ICD-9: 723.2 ICD-10: M53.0 Active 07/07/2017 Unknown Vertigo of central o rigin, bilateral ICD-9: 386.2 ICD-10: H81.43 Active 07/07/2017 Unknown Benign paroxysmal ve rtigo, bilateral ICD-9: 386.11 ICD-10: H81.13 Active 05/30/2017 Unknown Otalgia, bilateral ICD- 9: 388.70 ICD-10: H92.03 Active 05/30/2017 Unknown Left lower quadrant pain ICD-9: 789.04 ICD-10: R10.32 Active 09/20/2016 Unknown Low back pain ICD-9: 724.2 ICD-10: M54.5 Active 09/20/2016 Unknown Radiculopathy, lumbo sacral region ICD-9: 724.4 ICD-10: M54.17 Active 04/18/2017 Unknown Impaired fasting glu cose ICD-9: 790.29 ICD-10: R73.01 Active 02/23/2012 Unknown Mixed hyperlipidemia ICD-9: 272.4 ICD-10: E78.2 Active 11/01/2016 Unknown Other intervertebral disc degeneration, lumbar region ICD-9: 722.52 ICD-10: M51.36 Active 10/25/2016 Unknown Pain in thoracic spine ICD-9: 724.1 ICD-10: M54.6 Active 10/25/2016 Unknown Mastodynia ICD-9: 611.71 ICD-10: N64.4 Active 05/12/2016 Unknown Acute upper respirat ory infection, unspecified ICD-9: 465.9 ICD-10: J06.9 Active 03/18/2016 Unknown Acute mastoiditis wi thout complications, right ear ICD-9: 383.00 ICD-10: H70.001 Active 02/05/2016 Unknown Constipation, unspec ified ICD-9: 564.00 ICD-10: K59.00 Active 08/25/2015 Unknown Chronic kidney disea se, stage 1 ICD-9: 585.1 ICD-10: N18.1 Active 05/20/2015 Unknown History of falling ICD- 9: V15.88 ICD-10: Z91.81 Active 02/18/2015 Unknown Muscle weakness (gen eralized) ICD-9: 780.79 ICD-10: M62.81 Active 02/19/2015 Unknown Acute renal failure ICD- 9: 584.9 Active 11/18/2014 Unknown POLYURIA ICD-9: 788.42 Active 11/18/2014 Unknow n CAD ICD-9: 414.00 Active 11/14/2014 Unknow n Hyperglycemia ICD-9: 790.29 Active 02/23/2012 Unknown HYPERLIPIDEMIA NEC/NOS ICD-9: 272.4 Active 11/14/2014 Unknown ABDOMINAL PAIN ICD-9: 789.00 Active 12/15/2011 Unknown Grieving ICD-9: 309.0 Active 11/12/2014 Unknow n HYPOGLYCEMIA ICD-9: 251.2 Active 09/21/2011 Unknown MALAISE AND FATIGUE ICD- 9: 780.79 Active 11/13/2014 Unknown CERUMEN IMPACTION ICD-9: 380.4 Active 09/27/2014 Unknown Leg pain ICD-9: 729.5 Active 07/11/2014 Unknow n SUPERFIC PHLEBITIS-LEG ICD-9: 451.0 Active 07/11/2014 Unknown SPASM OF MUSCLE ICD-9: 728.85 Active 05/23/2014 Unknown Thoracic back pain ICD- 9: 724.1 Active 05/23/2014 Unknown Benign positional ve rtigo ICD-9: 386.11 Active Unknown Suspicious nevus ICD-9: 238.2 Active 03/20/2014 Unknown EUSTACHIAN TUBE DYSF UNCTION ICD-9: 381.81 Active Unknown SINUSITIS, ACUTE ICD-9: 461.9 Active 10/17/2013 Unknown DIZZINESS/VERTIGO ICD-9: 780.4 Active 09/24/2013 Unknown HYPERTENSION ICD-9: 401.9 Active 09/24/2013 Unknown URI, ACUTE ICD-9: 465.9 Active 12/19/2012 Unknow n CEPHALGIA ICD-9: 784.0 Active 11/27/2012 Unknow n OTITIS MEDIA NOS ICD-9: 382.9 Active 07/27/2012 Unknown Perforation of ear drum ICD-9: 384.20 Active 07/14/2012 Unknown Mastalgia ICD-9: 611.71 Active 06/08/2012 Unknow n DYSPEPSIA ICD-9: 536.8 Active 12/15/2011 Unknow n IBS ICD-9: 564.1 Active 12/15/2011 Unknow n FLU VACCINE ICD-9: V04.81 Active 12/02/2011 Unknown Radiculopathy of leg ICD-9: 724.4 Active 08/16/2011 Unknown SCIATICA ICD-9: 724.3 Active 08/03/2011 Unknow n Lumbar degenerative disc disease ICD-9: 722.52 Active Unknown Sacroiliac dysfunction ICD-9: 739.4 Active 06/28/2011 Unknown Hypertension Unknown Active 04/01/2011 Unknow n PAIN, LOWER BACK ICD-9: 724.2 Active 04/06/2010 Unknown SPINAL ENTHESOPATHY ICD- 9: 720.1 Active 04/06/2010 Unknown Hypotension ICD-9: 458.9 Active 04/01/2010 Unknow n SACROILIITIS NEC ICD-9: 720.2 Active 04/01/2010 Unknown PHARYNGITIS, ACUTE ICD- 9: 462 Active 01/22/2010 Unknown URINARY TRACT INFECTION ICD-9: 599.0 Active 12/02/2009 Unknown Heat exhaustion ICD-9: 992.5 Active 10/21/2009 Unknown Esophagitis ICD-9: 530.10 Active 08/11/2009 Unknown Gastritis ICD-9: 535.50 Active 08/11/2009 Unknow n GERD ICD-9: 530.81 Active 08/11/2009 Unknow n Hiatal hernia ICD-9: 553.3 Active 08/11/2009 Unknown B12 DEFIC ANEMIA NEC ICD-9: 281.1 Active 06/10/2009 Unknown Anxiety Unknown Active 06/09/2009 Unknow n Heart disease Unknown Active 06/09/2009 Unknow n Hyperlipidemia Unknown Active 06/09/2009 Unknow n ANXIETY STATE NOS ICD-9: 300.00 Active 06/09/2009 Unknown DEPRESSIVE DISORDER NEC ICD-9: 311 Active 06/09/2009 Unknown Problems Condition Codes Effectiv e Dates Condition Status Acute serous otitis media, left ear ICD-9: 381.01 ICD-10: H65.02 11/07/2018 Active Coronary atheroscler osis due to calcified coronary lesion ICD-9: 414.00 ICD-10: I25.84 11/30/2017 Active Essential (primary) hypertension ICD-9: 401.9 ICD-10: I10 09/24/2013 Active Hypoglycemia, unspec ified ICD-9: 251.2 ICD-10: E16.2 05/13/2016 Active Other fatigue ICD-9: 780.79 ICD-10: R53.83 05/12/2016 Active Urinary tract infect ion, site not specified ICD-9: 599.0 ICD-10: N39.0 12/06/2017 Active Gastro-esophageal re flux disease without esophagitis ICD-9: 530.81 ICD-10: K21.9 10/20/2017 Active Epigastric pain ICD-9: 789.06 ICD-10: R10.13 11/22/2017 Active Atherosclerotic hear t disease of [place] coronary artery without angina pectoris ICD-9: 414.00 ICD-10: I25.10 01/10/2018 Active Generalized anxiety disorder ICD-9: 300.00 ICD-10: F41.1 11/22/2017 Active Palpitations ICD-9: 785.1 ICD-10: R00.2 12/06/2017 Active Dizziness and giddiness ICD-9: 780.4 ICD-10: R42 09/24/2013 Active Occlusion and stenos is of bilateral carotid arteries ICD-9: 433.10 ICD-10: I65.23 11/30/2017 Active FLU VACCINE ICD-9: V04.81 ICD-10: Z23 12/02/2011 Active Cervicalgia ICD-9: 723.1 ICD-10: M54.2 08/16/2017 Active Other spondylosis wi th radiculopathy, cervical region ICD-9: 721.0 ICD-10: M47.22 07/07/2017 Active Cervicocranial syndrome ICD-9: 723.2 ICD-10: M53.0 07/07/2017 Active Vertigo of central o rigin, bilateral ICD-9: 386.2 ICD-10: H81.43 07/07/2017 Active Benign paroxysmal ve rtigo, bilateral ICD-9: 386.11 ICD-10: H81.13 05/30/2017 Active Otalgia, bilateral ICD- 9: 388.70 ICD-10: H92.03 05/30/2017 Active Left lower quadrant pain ICD-9: 789.04 ICD-10: R10.32 09/20/2016 Active Low back pain ICD-9: 724.2 ICD-10: M54.5 09/20/2016 Active Radiculopathy, lumbo sacral region ICD-9: 724.4 ICD-10: M54.17 04/18/2017 Active Impaired fasting glu cose ICD-9: 790.29 ICD-10: R73.01 02/23/2012 Active Mixed hyperlipidemia ICD-9: 272.4 ICD-10: E78.2 11/01/2016 Active Other intervertebral disc degeneration, lumbar region ICD-9: 722.52 ICD-10: M51.36 10/25/2016 Active Pain in thoracic spine ICD-9: 724.1 ICD-10: M54.6 10/25/2016 Active Mastodynia ICD-9: 611.71 ICD-10: N64.4 05/12/2016 Active Acute upper respirat ory infection, unspecified ICD-9: 465.9 ICD-10: J06.9 03/18/2016 Active Acute mastoiditis wi thout complications, right ear ICD-9: 383.00 ICD-10: H70.001 02/05/2016 Active Constipation, unspec ified ICD-9: 564.00 ICD-10: K59.00 08/25/2015 Active Chronic kidney disea se, stage 1 ICD-9: 585.1 ICD-10: N18.1 05/20/2015 Active History of falling ICD- 9: V15.88 ICD-10: Z91.81 02/18/2015 Active Muscle weakness (gen eralized) ICD-9: 780.79 ICD-10: M62.81 02/19/2015 Active Acute renal failure ICD- 9: 584.9 11/18/2014 Active POLYURIA ICD-9: 788.42 11/18/2014 Active CAD ICD-9: 414.00 11/14/2014 Active Hyperglycemia ICD-9: 790.29 02/23/2012 Active HYPERLIPIDEMIA NEC/NOS ICD-9: 272.4 11/14/2014 Active ABDOMINAL PAIN ICD-9: 789.00 12/15/2011 Active Grieving ICD-9: 309.0 11/12/2014 Active HYPOGLYCEMIA ICD-9: 251.2 09/21/2011 Active MALAISE AND FATIGUE ICD- 9: 780.79 11/13/2014 Active CERUMEN IMPACTION ICD-9: 380.4 09/27/2014 Active Leg pain ICD-9: 729.5 07/11/2014 Active SUPERFIC PHLEBITIS-LEG ICD-9: 451.0 07/11/2014 Active SPASM OF MUSCLE ICD-9: 728.85 05/23/2014 Active Thoracic back pain ICD- 9: 724.1 05/23/2014 Active Benign positional ve rtigo ICD-9: 386.11 03/20/2014 Active Suspicious nevus ICD-9: 238.2 03/20/2014 Active EUSTACHIAN TUBE DYSF UNCTION ICD-9: 381.81 10/17/2013 Active SINUSITIS, ACUTE ICD-9: 461.9 10/17/2013 Active DIZZINESS/VERTIGO [...] BACK ICD-9: 724.2 04/06/2010 Active SPINAL ENTHESOPATHY ICD- 9: 720.1 04/06/2010 Active Hypotension ICD-9: 458.9 04/01/2010 Active SACROILIITIS NEC ICD-9: 720.2 04/01/2010 Active PHARYNGITIS, ACUTE ICD- 9: 462 01/22/2010 Active URINARY TRACT INFECTION ICD-9: [...] ICD-9: 311 06/09/2009 Active Medications Medication Codes Instruc tions Start Date Stop Date Sta tus Fill Instructions metoprolol tartrate 25 mg tablet RxNorm: 413786 1 Tablet(s) PO BID 11/20/2018 05/18/2019 Active omeprazole 40 mg cap steven,delayed release RxNorm: 078139 1 Capsule(s) PO QD 11/13/2018 12/12/2018 Ac tive Flonase Allergy Reli ef 50 mcg/actuation nasal spray,suspension RxNorm: 4476883 2 [place] NASAL QHS 11/07/2018 No Stop Date Active simvastatin 40 mg ta blet RxNorm: 229433 1 Tablet(s) PO QD 10/23/2018 01/20/2019 Active simvastatin 40 mg ta blet RxNorm: 827662 1 Tablet(s) PO QD 07/24/2018 10/21/2018 Inactive omeprazole 40 mg cap steven,delayed release RxNorm: 463138 1 Capsule(s) PO QD 07/13/2018 11/09/2018 In active simvastatin 40 mg ta blet RxNorm: 439202 1 Tablet(s) PO QD 06/13/2018 07/12/2018 Inactive omeprazole 40 mg cap steven,delayed release RxNorm: 042618 1 Capsule(s) PO QD 06/13/2018 07/12/2018 In active Bactrim DS 800 mg-16 0 mg tablet RxNorm: 764965 1 Tablet(s) PO BID 05/12/2018 05/18/2018 Inactive Bactrim DS 800 mg-16 0 mg tablet RxNorm: 614174 1 Tablet(s) PO BID 05/12/2018 05/11/2018 Inactive Macrobid 100 mg capsule RxNorm: 408644 1 Capsule(s) PO BID 05/10/2018 05/16/2018 Inactive metoprolol tartrate 25 mg tablet RxNorm: 710978 1 Tablet(s) PO BID 05/10/2018 11/05/2018 Inactive Xanax 0.25 mg tablet RxNorm: 754086 TAKE 1 TABLET BY MOUTH TWICE DAILY 02/16/2018 No Stop Date Active Xanax 0.25 mg tablet RxNorm: 849632 1 Tablet(s) PO BID 02/14/2018 02/16/2018 Inactive Protonix 40 mg table t,delayed release RxNorm: 477991 1 Tablet(s) PO BID fo r stomach--replaces omeprazole 01/10/2018 05/09/2018 Inactive Carafate 1 gram tablet RxNorm: 427562 1 Tablet(s) PO AC & HS 01/10/2018 05/09/2018 Inactive Xanax 0.25 mg tablet RxNorm: 263310 1 Tablet(s) PO BID 01/03/2018 02/13/2018 Inactive Bactrim DS 800 mg-16 0 mg tablet RxNorm: 695043 1 Tablet(s) PO BID 12/08/2017 12/12/2017 Inactive Bactrim DS 800 mg-16 0 mg tablet RxNorm: 834809 1 Tablet(s) PO BID 12/08/2017 12/07/2017 Inactive Carafate 1 gram tablet RxNorm: 178259 1 Tablet(s) PO AC & HS 11/22/2017 12/21/2017 Inactive Protonix 40 mg table t,delayed release RxNorm: 776255 1 Tablet(s) PO BID fo r stomach--replaces omeprazole 11/22/2017 01/09/2018 Inactive Protonix 40 mg table t,delayed release RxNorm: 154220 1 Tablet(s) PO BID fo r stomach--replaces omeprazole 10/20/2017 11/21/2017 Inactive fluticasone 50 mcg/a ctuation nasal spray,suspension RxNorm: 5565052 2 [place] NASAL QD to each nostril 07/07/2017 08/13/2018 Inactive Nasonex 50 mcg/actua tion [place] RxNorm: 8760934 2 [place] NASAL 07/07/2017 07/07/2017 Inactive omeprazole 40 mg cap steven,delayed release RxNorm: 460823 1 Capsule(s) PO QD 04/18/2017 10/19/2017 In active simvastatin 40 mg ta blet RxNorm: 428752 1 Tablet(s) PO QD MALISSA E 1 TABLET EVERY DAY 04/18/2017 04/12/2018 In active metoprolol tartrate 25 mg tablet RxNorm: 183479 1/2 Tablet(s) PO QD 04/18/2017 01/09/2018 Inactive simvastatin 40 mg ta blet RxNorm: 887866 Tablet(s) TAKE 1 TABL ET EVERY DAY 10/27/2016 04/17/2017 In active metoprolol tartrate 25 mg tablet RxNorm: 527526 1/2 Tablet(s) PO QD 09/20/2016 03/18/2017 Inactive Flonase 50 mcg/actua tion nasal spray,suspension RxNorm: 0284132 2 [place] NASAL BID 09/20/2016 04/17/2017 In active omeprazole 40 mg cap steven,delayed release RxNorm: 914271 1 Capsule(s) PO QD 09/08/2016 04/17/2017 In active metoprolol tartrate 25 mg tablet RxNorm: 344524 1/2 Tablet(s) PO QD 06/14/2016 09/19/2016 Inactive ciprofloxacin 0.2 % ear drops in a dropperette RxNorm: 822582 4 Drop(s) OTIC TID fo r 1 week 02/06/2016 05/11/2016 Inactive cefdinir 300 mg capsule RxNorm: 710276 2 Capsule(s) PO QD 02/06/2016 02/15/2016 Inactive omeprazole 40 mg cap steven,delayed release RxNorm: 871327 TAKE 1 CAPSULE EVERY DAY 11/06/2015 09/08/2016 In active simvastatin 40 mg ta blet RxNorm: 210760 TAKE 1 TABLET EVERY DAY 10/08/2015 10/27/2016 Inactive Flonase 50 mcg/actua tion nasal spray,suspension RxNorm: 1635732 2 [place] NASAL BID 02/19/2015 09/19/2016 In active cefuroxime axetil 25 0 mg tablet RxNorm: 355278 1 Tablet(s) PO BID 11/21/2014 11/20/2014 Inactive cefuroxime axetil 25 0 mg tablet RxNorm: 725298 1 Tablet(s) PO BID 11/21/2014 11/27/2014 Inactive omeprazole 40 mg cap steven,delayed release RxNorm: 632465 1 Capsule(s) PO QD 10/09/2014 01/05/2015 In active meloxicam 7.5 mg tablet RxNorm: 764035 1 Tablet(s) PO QD 07/11/2014 08/09/2014 Inactive loratadine 10 mg tablet RxNorm: 576736 1 Tablet(s) PO QAM for allergies 10/17/2013 08/13/2018 In active Flonase 50 mcg/actua tion nasal spray,suspension RxNorm: 473137 2 [place] NASAL BID 10/17/2013 02/18/2015 In active prednisone 20 mg tablet RxNorm: 035783 2 Tablet(s) PO BID 10/17/2013 10/21/2013 Inactive Dyazide 37.5 mg-25 m g capsule RxNorm: 451699 1 Capsule(s) PO QAM 09/24/2013 10/16/2013 Inactive Ceftin 500 mg tablet RxNorm: 294297 1 Tablet(s) PO BID 05/31/2013 06/09/2013 Inactive Ceftin 500 mg tablet RxNorm: 034998 1 Tablet(s) PO BID 03/26/2013 04/04/2013 Inactive simvastatin 40 mg ta blet RxNorm: 964511 Tablet(s) PO TAKE ONE TABLET BY MOUTH EVERY DAY 03/26/2013 10/07/2015 Inactive metoprolol tartrate 25 mg tablet RxNorm: 403269 Tablet(s) PO TAKE ONE -HALF TABLET BY MOUTH EVERY DAY 03/26/2013 11/12/2014 Inactive Ceftin 500 mg tablet RxNorm: 137560 1 Tablet(s) PO BID 12/19/2012 12/28/2012 Inactive loratadine 10 mg tablet RxNorm: 201747 1 Tablet(s) PO QAM for allergies 10/04/2012 12/02/2012 In active omeprazole 20 mg cap steven,delayed release RxNorm: 655813 Capsule(s) PO TAKE ON E CAPSULE BY MOUTH TWICE DAILY 08/09/2012 10/08/2014 Inactive omeprazole 20 mg cap steven,delayed release RxNorm: 032729 1 Capsule(s) PO BID 08/09/2012 05/09/2018 In active Augmentin 875 mg-125 mg tablet RxNorm: 620343 1 Tablet(s) PO Q12H 07/14/2012 07/23/2012 Inactive Floxin Otic Drops 1 bottle Drops RxNorm: 5 Drop(s) OTIC BID 07/14/2012 07/20/2012 Inactive metoprolol tartrate 25 mg tablet RxNorm: 900621 Tablet(s) PO TAKE ONE -HALF TABLET BY MOUTH EVERY DAY 04/11/2012 03/25/2013 Inactive simvastatin 40 mg ta blet RxNorm: 287475 Tablet(s) PO TAKE ONE TABLET BY MOUTH EVERY DAY 04/11/2012 03/25/2013 Inactive lancets RxNorm: Misc Miscellaneous USE ONE TO CHECK GLUC OSE EVERY DAY 04/04/2012 05/09/2018 In active Carafate 1 gram tablet RxNorm: 641674 1 Tablet(s) PO AC & HS 02/22/2012 11/12/2014 Inactive Flagyl 500 mg tablet RxNorm: 201457 1 Tablet(s) PO TID 12/15/2011 12/21/2011 Inactive Carafate 1 gram tablet RxNorm: 437668 1 Tablet(s) PO AC & HS 12/15/2011 02/12/2012 Inactive One Touch Test strips RxNorm: Miscellaneous QD 09/21/2011 05/09/2018 Inactive one touch ultra mini test strips Protonix 40 mg Tab RxNorm: 311765 1 Tablet(s) PO QD 09/13/2011 09/12/2011 Inactive Protonix 40 mg Tab RxNorm: 158433 1 Tablet(s) PO QD 09/13/2011 12/14/2011 Inactive prednisone 20 mg Tab RxNorm: 709296 1 Tablet(s) PO BID 08/03/2011 08/09/2011 Inactive Flexeril 5 mg Tab RxNorm: 855785 1 Tablet(s) PO QHS for spasm 07/26/2011 08/24/2011 Inactive Flexeril 5 mg Tab RxNorm: 873552 1 Tablet(s) PO QHS for spasm 06/28/2011 07/25/2011 Inactive amlodipine 2.5 mg Tab RxNorm: 047394 1/2 Tablet(s) PO QD replaces 5mg dose 03/31/2011 06/27/2011 In active simvastatin 40 mg ta blet RxNorm: 729185 1 Tablet(s) PO QD 03/31/2011 03/24/2012 Inactive metoprolol tartrate 25 mg tablet RxNorm: 865224 1/2 Tablet(s) PO QD 03/31/2011 03/24/2012 Inactive omeprazole 20 mg cap steven,delayed release RxNorm: 670583 1 Capsule(s) PO BID 03/31/2011 09/12/2011 In active cefdinir 300 mg Cap RxNorm: 546728 2 Capsule(s) PO QD 02/11/2011 02/20/2011 Inactive simvastatin 40 mg Tab RxNorm: 245057 1 Tablet(s) PO QD 02/01/2011 03/30/2011 Inactive metoprolol tartrate 25 mg Tab RxNorm: 761937 1/2 Tablet(s) PO QD 12/29/2010 03/30/2011 Inactive metoprolol tartrate 25 mg Tab RxNorm: 077347 1/2 Tablet(s) PO QD 12/28/2010 12/28/2010 Inactive meclizine 25 mg Tab RxNorm: 4166126 1 Tablet(s) PO QHS 10/15/2010 11/13/2010 Inactive for dizziness Ceftin 500 mg Tab RxNorm: 762863 1 Tablet(s) PO BID 07/02/2010 07/11/2010 Inactive omeprazole 20 mg Cap , Delayed Release RxNorm: 599798 1 Capsule(s) PO BID 07/02/2010 12/28/2010 In active simvastatin 40 mg Tab RxNorm: 512994 1 Tablet(s) PO QD 06/30/2010 05/09/2018 Inactive simvastatin 40 mg Tab RxNorm: 974660 1 Tablet(s) PO QD 06/30/2010 01/25/2011 Inactive simvastatin 40 mg Tab RxNorm: 688856 1 Tablet(s) PO QD 02/25/2010 06/30/2010 Inactive Tessalon Perles 100 mg Cap RxNorm: 945098 1 Capsule(s) PO Q6-8H 01/22/2010 01/28/2010 Inactive cefdinir 300 mg Cap RxNorm: 023866 1 Capsule(s) PO BID 01/22/2010 01/31/2010 Inactive Lexapro 10 mg Tab RxNorm: 676653 1 Tablet(s) PO QD 12/02/2009 01/30/2010 Inactive Cipro 250 mg Tab RxNorm: 698012 1 Tablet(s) PO BID 12/02/2009 12/08/2009 Inactive Wellbutrin XL 150 mg 24 hr Tab RxNorm: 228370 1 Tablet(s) PO QAM 06/09/2009 08/07/2009 Inactive Fish Oil 1,000 mg Cap RxNorm: 1 Capsule(s) PO QD No Start Date Active Tylenol Extra Streng th 500 mg tablet RxNorm: 604956 1/2 Tablet(s) PO as n eeded No Start Date Active nitroglycerin 0.4 mg sublingual tablet RxNorm: 297900 Tablet(s) SL as neede d No Start Date Active Calcium with Vitamin D 600 mg (1,500 mg)-400 unit tablet RxNorm: 370838 1 Tablet(s) PO QD No Start Date Active Multivitamin & Punch Press Setter al Formula Tab RxNorm: 1 Tablet(s) PO QD No Start Date Active vitamin B complex ca psule RxNorm: 1 Capsule(s) PO QD No Start Date Active Aspirin 81 mg Tab RxNorm: 521017 1 Tablet(s) PO QD No Start Date Active isosorbide mononitra te ER 30 mg tablet,extended release 24 hr RxNorm: 326618 1 Tablet(s) PO QHS No Start Date Active Vitamin D 1,000 unit Cap RxNorm: 109120 1 Capsule(s) PO QD No Start Date Active Co Q-10 oral RxNorm: 58573 oral No Start Date Active metoprolol tartrate 25 mg Tab RxNorm: 011035 1/2 Tablet(s) PO QD No Start Date 12/27/2010 Inactive Nasonex 50 mcg/actua tion [place] RxNorm: 0289496 2 [place] NASAL No Start Date 07/06/2017 Inactive Vitamin B12 1000mcg Tablet RxNorm: 1 Tablet(s) PO QD No Start Date 11/12/2014 Inactive amlodipine 5 mg Tab RxNorm: 746519 1 Tablet(s) PO QD No Start Date 03/30/2011 Inactive simvastatin 40 mg ta blet RxNorm: 494886 1 Tablet(s) PO QD No Start Date 06/12/2018 Inactive omeprazole 20 mg cap steven,delayed release RxNorm: 186632 1 Capsule(s) PO BID No Start Date 08/08/2012 Inactive omeprazole 40 mg cap steven,delayed release RxNorm: 840081 1 Capsule(s) PO QD No Start Date 06/12/2018 Inactive Nexium 40 mg Cap RxNorm: 002875 1 Capsule(s) PO QD No Start Date 01/21/2010 Inactive Stool Softener 100 m g Tab RxNorm: 2915028 2 Tablet(s) PO BID No Start Date 03/30/2011 Inactive Calcium with Vitamin D 600 mg (1,500 mg)-400 unit Tab RxNorm: 085019 1 Tablet(s) PO QD No Start Date 11/12/2014 Inactive iron 325 mg (65 mg i yajaira) Tab RxNorm: 115211 1 Tablet(s) PO QD No Start Date 11/12/2014 Inactive Flonase 50 mcg/actua tion Nasal [place] RxNorm: 620261 2 [place] NASAL BID No Start Date 10/16/2013 Inactive fluticasone 50 mcg/a ctuation nasal spray,suspension RxNorm: 5376334 2 [place] NASAL QD to each nostril No Start Date 07/06/2017 Inactive Nasonex 50 mcg/actua tion [place] RxNorm: 6991256 2 [place] NASAL QD No Start Date 07/06/2017 Inactive hydralazine 50 mg ta blet RxNorm: 694580 1 Tablet(s) PO as nee ded for BP over 160/90 No Start Date 11/21/2017 Inactive Vimovo 500 mg-20 mg 12 hr Tab RxNorm: 790906 1 Tablet(s) PO BID No Start Date 02/10/2011 Inactive Tylenol PM 25 mg-500 mg/15 mL Oral Soln RxNorm: 3594421 1 PO QPM No Start Date 11/12/2014 Inactive Iron (Ferrous Sulfat e) Oral RxNorm: Oral No Start D ate 03/30/2011 Inactive Reglan 10 mg Tab RxNorm: 582404 1 Tablet(s) PO TID before meals No Start Date 02/10/2011 Inactive Xanax 1 mg Tab RxNorm: 439492 1/2 Tablet(s) PO QD No Start Date 11/21/2017 Inactive amlodipine 10 mg tablet RxNorm: 025514 1 Tablet(s) PO QD No Start Date 09/23/2013 Inactive Iron (dried) Oral RxNorm: Oral No Start Date 03/30/2011 Inactive metoprolol tartrate 50 mg tablet RxNorm: 289718 1 Tablet(s) PO BID No Start Date 02/13/2018 Inactive Xanax 0.25 mg tablet RxNorm: 790053 1 Tablet(s) PO BID No Start Date 01/02/2018 Inactive lancets RxNorm: Miscellaneous check blood sugar at least once daily No Start Date 04/03/2012 Inactive simvastatin 40 mg Tab RxNorm: 149884 1 Tablet(s) PO QD No Start Date 02/24/2010 Inactive isosorbide mononitra te ER 30 mg tablet,extended release 24 hr RxNorm: 247329 1 Tablet(s) PO QHS No Start Date 08/13/2018 Inactive amlodipine 2.5 mg ta blet RxNorm: 095047 1 Tablet(s) PO QD No Start Date 09/23/2013 Inactive sucralfate 1 gram ta blet RxNorm: 973151 1 Tablet(s) PO QID No Start Date 05/09/2018 Inactive Fish Oil Oral RxNorm: Oral No Start Date 03/31/2011 Inactive Multiple Vitamin Oral RxNorm: Oral No Start Date 03/31/2011 Inactive metoprolol tartrate 25 mg tablet RxNorm: 860861 1/2 Tablet(s) PO QD No Start Date 06/13/2016 Inactive metoprolol tartrate 50 mg tablet RxNorm: 057711 1/2 Tablet(s) PO BID No Start Date 05/09/2018 Inactive Flonase Allergy Reli ef 50 mcg/actuation nasal spray,suspension RxNorm: 8304929 2 [place] NASAL QHS No Start Date 11/06/2018 Inactive Medication Administered No Medication Administered data Immunizations Vaccine Codes Date Status Influenza CVX: 135 11/22 completed Influenza CVX: 135 12/10 completed Influenza CVX: 135 12/11 completed Influenza CVX: 135 12/20 completed Influenza CVX: 141 11/27 completed Influenza (Adult) CVX: 141 12/10/2009 completed Assessments Condition Codes Effectiv e Dates Acute serous otitis media, left ear ICD-10: H65.02 ICD-9: 381.01 11/07/2018 Urinary tract infection, site not specified ICD-10: N39.0 ICD-9: 599.0 08/14/2018 Other fatigue ICD-10: R53.83 ICD-9: 780.79 08/14/2018 Hypoglycemia, unspecified ICD-10: E1 6.2 ICD-9: 251.2 08/14/2018 Coronary atherosclerosis due to calcified coronary les ion ICD- 10: I25.84 ICD-9: 414.00 08/14/2018 Essential (primary) hypertension ICD -10: I10 ICD-9: 401.9 08/14/2018 Gastro-esophageal reflux disease without esophagitis ICD-10: K21.9 ICD-9: 530.81 05/10/2018 Epigastric pain ICD-10: R10.13 ICD-9: 789.06 02/14/2018 Generalized anxiety disorder ICD-10: F41.1 ICD-9: 300.00 01/10/2018 Atherosclerotic heart disease of [place] coronary artery without angina pectoris ICD-10: I25.10 ICD-9: 414.00 01/10/2018 Palpitations ICD-10: R00.2 ICD-9: 785.1 12/06/2017 Occlusion and stenosis of bilateral carotid arteries ICD-10: I65.23 ICD-9: 433.10 11/30/2017 Dizziness and giddiness ICD-10: R42 ICD-9: 780.4 11/30/2017 FLU VACCINE ICD-10: Z23 ICD-9: V04.81 11/22/2017 Cervicalgia ICD-10: M54.2 ICD-9: 723.1 08/16/2017 Other spondylosis with radiculopathy, cervical region ICD-10: M47.22 ICD-9: 721.0 08/16/2017 Cervicocranial syndrome ICD-10: M53. 0 ICD-9: 723.2 07/07/2017 Vertigo of central origin, bilateral ICD-10: H81.43 ICD-9: 386.2 07/07/2017 Otalgia, bilateral ICD-10: H92.03 ICD-9: 388.70 05/30/2017 Benign paroxysmal vertigo, bilateral ICD-10: H81.13 ICD-9: 386.11 05/30/2017 Radiculopathy, lumbosacral region IC D-10: M54.17 ICD-9: 724.4 04/18/2017 Low back pain ICD-10: M54.5 ICD-9: 724.2 04/18/2017 Left lower quadrant pain ICD-10: R10 .32 ICD-9: 789.04 04/18/2017 Impaired fasting glucose ICD-10: R73 .01 ICD-9: 790.29 11/01/2016 Mixed hyperlipidemia ICD-10: E78.2 ICD-9: 272.4 11/01/2016 Other intervertebral disc degeneration, lumbar region ICD-10: M51.36 ICD-9: 722.52 10/25/2016 Pain in thoracic spine ICD-10: M54.6 ICD-9: 724.1 10/25/2016 Mastodynia ICD-10: N64.4 ICD-9: 611.71 05/12/2016 Acute upper respiratory infection, unspecified ICD-10: J06.9 ICD-9: 465.9 03/18/2016 Acute mastoiditis without complications, right ear ICD-10: H70.001 ICD-9: 383.00 02/06/2016 Constipation, unspecified ICD-10: K5 9.00 ICD-9: 564.00 08/26/2015 Chronic kidney disease, stage 1 ICD- 10: N18.1 ICD-9: 585.1 05/21/2015 Muscle weakness (generalized) ICD-10 : M62.81 ICD-9: 780.79 02/19/2015 History of falling ICD-10: Z91.81 ICD-9: V15.88 02/19/2015 POLYURIA ICD-9: 788.42 0 11/19/2014 Acute renal failure ICD-9: 584.9 11/19/2014 HYPERTENSION ICD-9: 401.9 11/14/2014 Hyperglycemia ICD-9: 790.29 11/14/2014 CAD ICD-9: 414.00 2014 HYPERLIPIDEMIA NEC/NOS ICD-9: 272.4 11/14/2014 MALAISE AND FATIGUE ICD-9: 780.79 11/14/2014 HYPOGLYCEMIA ICD-9: 251.2 11/13/2014 Grieving ICD-9: 309.0 ABDOMINAL PAIN ICD-9: 789.00 11/13/2014 CERUMEN IMPACTION ICD-9: 380.4 09/27/2014 EUSTACHIAN TUBE DYSFUNCTION ICD-9: 381.81 09/27/2014 SUPERFIC PHLEBITIS-LEG ICD-9: 451.0 07/11/2014 Leg pain ICD-9: 729.5 Thoracic back pain ICD-9: 724.1 05/23/2014 SPASM OF MUSCLE ICD-9: 728.85 05/23/2014 DIZZINESS/VERTIGO ICD-9: 780.4 03/20/2014 Suspicious ne[place]us ICD-9: 238.2 03/20/2014 Benign positional vertigo ICD-9: 386.11 03/20/2014 SINUSITIS, ACUTE ICD-9: 461.9 10/17/2013 B12 DEFIC ANEMIA NEC ICD-9: 281.1 03/28/2013 COUGH ICD-9: 786.2 03/26 URI, ACUTE ICD-9: 465.9 12/19/2012 ANXIETY STATE NOS ICD-9: 300.00 11/27/2012 FLU VACCINE ICD-9: V04.81 11/27/2012 CEPHALGIA ICD-9: 784.0 0 11/27/2012 OTITIS MEDIA NOS ICD-9: 382.9 07/27/2012 Perforation of ear drum ICD-9: 384.20 07/14/2012 Mastalgia ICD-9: 611.71 06/08/2012 GERD ICD-9: 530.81 02/21 DYSPEPSIA ICD-9: 536.8 1 IBS ICD-9: 564.1 012 URINARY TRACT INFECTION ICD-9: 599.0 09/16/2011 SPINAL ENTHESOPATHY ICD-9: 720.1 08/16/2011 SACROILIITIS NEC ICD-9: 720.2 08/16/2011 Radiculopathy of leg ICD-9: 724.4 08/16/2011 LUMB/LUMBOSAC DISC DEGEN ICD-9: 722.52 08/16/2011 SCIATICA ICD-9: 724.3 PAIN, LOWER BACK ICD-9: 724.2 08/03/2011 Sacroiliac dysfunction ICD-9: 739.4 06/28/2011 HYPOTENSION ICD-9: 458.9 03/31/2011 PHARYNGITIS, ACUTE ICD-9: 462 02/11/2011 DEPRESSIVE DISORDER NEC ICD-9: 311 04/01/2010 Heat exhaustion ICD-9: 992.5 10/21/2009 DIAPHRAGMATIC HERNIA ICD-9: 553.3 10/21/2009 Gastritis ICD-9: 535.50 08/11/2009 Esophagitis ICD-9: 530.10 08/11/2009 Reason For Visit Reason For Visit Effective Dates Notes hearing loss 11/07/2018 left ear follow up 08/14/2018 follow up 05/10/2018 Dionne clemons has upcoming appointment with Dr Mcgrath and carotid dopplers tomorrow follow up 02/14/2018 Dionne clemons had heart cath on 01-03-18 and one of the bypass veins in [place] follow up 01/10/2018 [address] [place] follow up 12/06/2017 follow up 11/22/2017 high blood pressure 10/20/2017 Dr Mcgrath has ordered holter monitor and hydralazine 50mg PRN dizziness 09/27/2017 On Tony morning patient woke up and went to the bathroom [...] 11/01/2016 follow up 10/25/2016 pelvic pain 09/20/2016 P atient states pain started in July with a [...] 09/27/2014 pain, limb 07/11/2014 follow up 05/23/2014 Hos pital fwup high blood pressure 03/20/2014 injection(s) 12/21/2013 flu shot sinusitis 10/17/2013 high blood pressure 09/24/2013 cough 05/31/2013 Was hig ht at Dr Mcgarth's office so he started he on amlodipine [...] and bloating 12/15/2011 Dr Mcgrath has her monitoring because was high in his office at last visit injection(s) 12/02/2011 dizziness 09/21/2011 dizziness 09/16/2011 lab draw 09/15/2011 muscle weakness 09/13/2011 concerns of simvastatin with fatigue and muscle weakness leg pain/sciatica 08/16/2011 hip pain 08/03/2011 back pain 07/26/2011 has tried ice pack, muscle relaxers, and moist heat back pain 06/28/2011 fatigue 03/31/2011 in [place] nds/feet otalgia 02/11/2011 follow up 10/15/2010 2wk fwup back pain 09/29/2010 thi nks ulcer may have returned lab draw 07/06/2010 dizziness 07/02/2010 Lef t ear and facial pain, right ear pain follow up 04/06/2010 1wk fwup hip pain 04/01/2010 feel s very draggy, fatigue, BP 80/63, normally running 100's/60's chills 01/22/2010 injection(s) 12/10/2009 flu shot follow up 12/02/2009 6wk fwup, had HH repaired and is starting to feel better, started on reglan 10mg tid follow up 10/21/2009 hos p fwup follow up 09/10/2009 1mo fwup, saw Dr Mcgrath and hasn't gave cardiac clearance yet for HH repair, did have chemical stress test yesterday and waiting on results follow up 08/11/2009 fro m EGD/colonoscopy--has Hiatal Hernia and wants to do repair follow up 06/09/2009 Results Observation Observation Code Item Item Code Result Date GFR CALC 0634992 GFR Non Afr Amr 48 mL/min 08/14/2018 GFR CALC 3161023 GFR Afr Amr 59 mL/min 08/14/2018 THYROID STIMULATING HORMONE 33402 TSH 1.936 uIU/mL 9 COMPREHENSIVE METABOLIC 22315 AST 18 U/L 08/14/2018 COMPREHENSIVE METABOLIC 81681 ALT 11 U/L 08/14/2018 COMPREHENSIVE METABOLIC 06818 BUN 18 mg/dL 08/14/2018 COMPREHENSIVE METABOLIC 18402 ALBUMIN 4.2 g/dL 08/14/2018 COMPREHENSIVE METABOLIC 25727 CHLORIDE 109 mmol/L 08/14/2018 COMPREHENSIVE METABOLIC 98640 Bili Total 0.4 mg/dL 08/14/2018 COMPREHENSIVE METABOLIC 50324 ALK PHOS 64 U/L 08/14/2018 COMPREHENSIVE METABOLIC 90192 SODIUM 142 mmol/L 08/14/2018 COMPREHENSIVE METABOLIC 42751 CREATININE 1.09 mg/dL 08/14/2018 COMPREHENSIVE METABOLIC 29582 CALCIUM 9.3 mg/dL 08/14/2018 COMPREHENSIVE METABOLIC 42687 POTASSIUM 4.7 mmol/L 08/14/2018 COMPREHENSIVE METABOLIC 71965 Total Protein 6.3 g/dL 08/14/2018 COMPREHENSIVE METABOLIC 08830 Glucose 84 mg/dL 08/14/2018 COMPREHENSIVE METABOLIC 55345 Bicarbonate 25 mmol/L 08/14/2018 COMPREHENSIVE METABOLIC 95637 AGAP 8 mmol/L 08/14/2018 COMPLETE BLOOD COUNT 4622701 WBC 7.8 10e9/L 08/14/2018 COMPLETE BLOOD COUNT [id number] RBC 4.04 10e12/L 9 COMPLETE BLOOD COUNT 4144762 HEMOGLOBIN 12.2 g/dL 08/14/2018 COMPLETE BLOOD COUNT [id number] HEMATOCRIT 38.6 % 08/14/2018 COMPLETE BLOOD COUNT 3164831 MCV 95.5 fL 08/14/2018 COMPLETE BLOOD COUNT 6455388 MCH 30.2 pg 08/14/2018 COMPLETE BLOOD COUNT [id number] MCHC 31.6 g/dL 08/14/2018 COMPLETE BLOOD COUNT [id number] PLATELET COUNT 215 10e9/L 08/14/2018 COMPLETE BLOOD COUNT 1041427 Mean Plt Volume 11.2 fL 08/14/2018 COMPLETE BLOOD COUNT [id number] Neut Auto 45.7 % 08/14/2018 COMPLETE BLOOD COUNT 3385466 Lymph Auto 42.1 % 08/14/2018 COMPLETE BLOOD COUNT 4107494 [place] Auto 9.2 % 08/14/2018 COMPLETE BLOOD COUNT 7400652 RDW 13.4 % 08/14/2018 COMPLETE BLOOD COUNT 6203024 Eos Auto 2.7 % 08/14/2018 COMPLETE BLOOD COUNT 3548052 Baso Auto 0.3 % 08/14/2018 COMPLETE BLOOD COUNT 9035744 Neutrophil Abs 3.56 10e9/L 08/14/2018 COMPLETE BLOOD COUNT 4047670 Lymphocyte Abs 3.28 10e9/L 08/14/2018 COMPLETE BLOOD COUNT 7085611 Monocyte Abs 0.72 10e9/L 08/14/2018 COMPLETE BLOOD COUNT 9040712 Eosinophil Abs 0.21 10e9/L 08/14/2018 COMPLETE BLOOD COUNT 7530147 RDW-SD 44.9 fL 08/14/2018 COMPLETE BLOOD COUNT 9780960 Basophil Abs 0.02 10e9/L 08/14/2018 COMPLETE BLOOD COUNT [id number] WBC 5.2 10e9/L 11/30/2017 COMPLETE BLOOD COUNT 0779866 RBC 4.21 10e12/L 8 COMPLETE BLOOD COUNT 8489070 HEMOGLOBIN 12.8 g/dL 11/30/2017 COMPLETE BLOOD COUNT 5827483 HEMATOCRIT 39.0 % 11/30/2017 COMPLETE BLOOD COUNT 1947009 MCV 92.6 fL 11/30/2017 COMPLETE BLOOD COUNT 5679900 MCH 30.4 pg 11/30/2017 COMPLETE BLOOD COUNT 4207361 MCHC 32.8 g/dL 11/30/2017 COMPLETE BLOOD COUNT 6910217 PLATELET COUNT 202 10e9/L 11/30/2017 COMPLETE BLOOD COUNT 9751270 Mean Plt Volume 10.7 fL 11/30/2017 COMPLETE BLOOD COUNT 0823766 Neut Auto 40.9 % 11/30/2017 COMPLETE BLOOD COUNT 4858093 Lymph Auto 46.3 % 11/30/2017 COMPLETE BLOOD COUNT 5053358 [place] Auto 9.3 % 11/30/2017 COMPLETE BLOOD COUNT 4025378 RDW 13.7 % 11/30/2017 COMPLETE BLOOD COUNT 3496904 Eos Auto 2.9 % 11/30/2017 COMPLETE BLOOD COUNT 8715031 Baso Auto 0.6 % 11/30/2017 COMPLETE BLOOD COUNT 3595205 Neutrophil Abs 2.13 10e9/L 11/30/2017 COMPLETE BLOOD COUNT 9757622 Lymphocyte Abs 2.41 10e9/L 11/30/2017 COMPLETE BLOOD COUNT [id number] Monocyte Abs 0.48 10e9/L 11/30/2017 COMPLETE BLOOD COUNT 9365948 Eosinophil Abs 0.15 10e9/L 11/30/2017 COMPLETE BLOOD COUNT 8221797 RDW-SD 45.2 fL 11/30/2017 COMPLETE BLOOD COUNT [id number] Basophil Abs 0.03 10e9/L 11/30/2017 [place] [address] Glucose 118 mg/dL 11/30/2017 [place] [address] CREATININE 1.01 mg/dL 11/30/2017 [place] [address] BUN 14 mg/dL 11/30/2017 [place] [address] SODIUM 141 mmol/L 11/30/2017 [place] [address] POTASSIUM 4.0 mmol/L 11/30/2017 [place] [address] CHLORIDE 108 mmol/L 11/30/2017 [place] [address] Bicarbonate 25 mmol/L 11/30/2017 [place] [address] AGAP 8 mmol/L 11/30/2017 [place] [address] CALCIUM 9.6 mg/dL 11/30/2017 FREE T4 53188 T4 Free 1.23 ng/dL 11/30/2017 GFR CALC 8806830 GFR Non Afr Amr 53 mL/min 11/30/2017 GFR CALC 1737189 GFR Afr Amr >60 mL/min 11/30/2017 THYROID STIMULATING HORMONE 72126 TSH 2.124 uIU/mL 8 LIPID GROUP 50423 Choles terol 152 mg/dL 09/28/2017 LIPID GROUP 41294 Trigly ceride 151 mg/dL 09/28/2017 LIPID GROUP 55455 HDL CH OLESTEROL 47 mg/dL 09/28/2017 LIPID GROUP 38143 Chol/H DL Ratio 3.23 ratio 09/28/2017 LIPID GROUP 68335 NON-HD L Chol 105 mg/dL 09/28/2017 LIPID GROUP 51993 LDL Ch olesterol 75 mg/dL 09/28/2017 ASSAY OF TROPONIN QUANT 11820 Troponin-I <0.30 ng/mL 09/27/2017 COMPREHENSIVE METABOLIC 27317 AST 20 U/L 09/27/2017 COMPREHENSIVE METABOLIC 39094 ALT 14 U/L 09/27/2017 COMPREHENSIVE METABOLIC 13534 BUN 19 mg/dL 09/27/2017 COMPREHENSIVE METABOLIC 30498 ALBUMIN 4.2 g/dL 09/27/2017 COMPREHENSIVE METABOLIC 63486 CHLORIDE 102 mmol/L 09/27/2017 COMPREHENSIVE METABOLIC 03550 Bili Total 0.4 mg/dL 09/27/2017 COMPREHENSIVE METABOLIC 86174 ALK PHOS 66 U/L 09/27/2017 COMPREHENSIVE METABOLIC 39464 SODIUM 135 mmol/L 09/27/2017 COMPREHENSIVE METABOLIC 07681 CREATININE 1.01 mg/dL 09/27/2017 COMPREHENSIVE METABOLIC 81949 CALCIUM 9.3 mg/dL 09/27/2017 COMPREHENSIVE METABOLIC 79617 POTASSIUM 4.8 mmol/L 09/27/2017 COMPREHENSIVE METABOLIC 89193 Total Protein 7.0 g/dL 09/27/2017 COMPREHENSIVE METABOLIC 94622 Glucose 91 mg/dL 09/27/2017 COMPREHENSIVE METABOLIC 42023 Bicarbonate 23 mmol/L 09/27/2017 COMPREHENSIVE METABOLIC 85552 AGAP 10 mmol/L 09/27/2017 COMPLETE BLOOD COUNT 4666238 WBC 7.5 10e9/L 09/27/2017 COMPLETE BLOOD COUNT 6768997 RBC 4.13 10e12/L 8 COMPLETE BLOOD COUNT 7976709 HEMOGLOBIN 12.6 g/dL 09/27/2017 COMPLETE BLOOD COUNT 2065738 HEMATOCRIT 38.4 % 09/27/2017 COMPLETE BLOOD COUNT 5729339 MCV 93.0 fL 09/27/2017 COMPLETE BLOOD COUNT 1574987 MCH 30.5 pg 09/27/2017 COMPLETE BLOOD COUNT 8861186 MCHC 32.8 g/dL 09/27/2017 COMPLETE BLOOD COUNT 1426581 PLATELET COUNT 204 10e9/L 09/27/2017 COMPLETE BLOOD COUNT 4022502 Mean Plt Volume 10.9 fL 09/27/2017 COMPLETE BLOOD COUNT 6148199 Neut Auto 43.1 % 09/27/2017 COMPLETE BLOOD COUNT 5271966 Lymph Auto 45.0 % 09/27/2017 COMPLETE BLOOD COUNT 0306566 [place] Auto 9.2 % 09/27/2017 COMPLETE BLOOD COUNT 4024321 RDW 13.4 % 09/27/2017 COMPLETE BLOOD COUNT 3333101 Eos Auto 2.3 % 09/27/2017 COMPLETE BLOOD COUNT 9811840 Baso Auto 0.4 % 09/27/2017 COMPLETE BLOOD COUNT 4264426 Neutrophil Abs 3.23 10e9/L 09/27/2017 COMPLETE BLOOD COUNT 2391074 Lymphocyte Abs 3.38 10e9/L 09/27/2017 COMPLETE BLOOD COUNT 2367853 Monocyte Abs 0.69 10e9/L 09/27/2017 COMPLETE BLOOD COUNT 0978235 Eosinophil Abs 0.17 10e9/L 09/27/2017 COMPLETE BLOOD COUNT 3687404 RDW-SD 44.4 fL 09/27/2017 COMPLETE BLOOD COUNT 5951339 Basophil Abs 0.03 10e9/L 09/27/2017 GFR CALC 0610900 GFR Non Afr Amr 53 mL/min 09/27/2017 GFR CALC 5787596 GFR Afr Amr >60 mL/min 09/27/2017 GLYCOSYLATED HEMOGLOBIN TEST 33549 Hgb A1c 47860-3 5.4 % 09/27/2017 MEAN GLUC Calc M steven Gluc 108 mg/dL 09/27/2017 MEAN GLUC 8366995 Calc M steven Gluc 114 mg/dL 11/01/2016 LIPID GROUP 89388 Choles terol 146 mg/dL 11/01/2016 LIPID GROUP 70598 Trigly ceride 119 mg/dL 11/01/2016 LIPID GROUP 66890 HDL CH OLESTEROL 47 mg/dL 11/01/2016 LIPID GROUP 08575 Chol/H DL Ratio 3.11 ratio 11/01/2016 LIPID GROUP 08151 NON-HD L Chol 99 mg/dL 11/01/2016 LIPID GROUP 61245 LDL Ch olesterol 75 mg/dL 11/01/2016 GLYCOSYLATED HEMOGLOBIN TEST 73670 Hgb A1c 67086-9 5.6 % 11/01/2016 COMPREHENSIVE METABOLIC 02218 AST 22 U/L 11/01/2016 COMPREHENSIVE METABOLIC 45362 ALT 12 U/L 11/01/2016 COMPREHENSIVE METABOLIC 66739 BUN 17 mg/dL 11/01/2016 COMPREHENSIVE METABOLIC 59545 ALBUMIN 4.0 g/dL 11/01/2016 COMPREHENSIVE METABOLIC 23321 CHLORIDE 110 mmol/L 11/01/2016 COMPREHENSIVE METABOLIC 32297 Bili Total 0.4 mg/dL 11/01/2016 COMPREHENSIVE METABOLIC 87628 ALK PHOS 63 U/L 11/01/2016 COMPREHENSIVE METABOLIC 63381 SODIUM 140 mmol/L 11/01/2016 COMPREHENSIVE METABOLIC 92457 CREATININE 1.05 mg/dL 11/01/2016 COMPREHENSIVE METABOLIC 29165 CALCIUM 9.2 mg/dL 11/01/2016 COMPREHENSIVE METABOLIC 71789 POTASSIUM 4.2 mmol/L 11/01/2016 COMPREHENSIVE METABOLIC 78999 Total Protein 6.2 g/dL 11/01/2016 COMPREHENSIVE METABOLIC 80444 Glucose 87 mg/dL 11/01/2016 COMPREHENSIVE METABOLIC 85630 Bicarbonate 24 mmol/L 11/01/2016 COMPREHENSIVE METABOLIC 14487 AGAP 6 mmol/L 11/01/2016 GFR CALC 3160224 GFR Non Afr Amr 51 mL/min 11/01/2016 GFR CALC 6937351 GFR Afr Amr >60 mL/min 11/01/2016 COMPLETE BLOOD COUNT 7225546 WBC 6.7 10e9/L 11/01/2016 COMPLETE BLOOD COUNT 1095830 RBC 4.04 10e12/L 7 COMPLETE BLOOD COUNT 3716928 HEMOGLOBIN 12.1 g/dL 11/01/2016 COMPLETE BLOOD COUNT 6938967 HEMATOCRIT 38.0 % 11/01/2016 COMPLETE BLOOD COUNT 3673128 MCV 94.1 fL 11/01/2016 COMPLETE BLOOD COUNT 7794643 MCH 30.0 pg 11/01/2016 COMPLETE BLOOD COUNT 6325417 MCHC 31.8 g/dL 11/01/2016 COMPLETE BLOOD COUNT 5316407 PLATELET COUNT 206 10e9/L 11/01/2016 COMPLETE BLOOD COUNT 2181927 Mean Plt Volume 11.3 fL 11/01/2016 COMPLETE BLOOD COUNT 7364288 Neut Auto 35.8 % 11/01/2016 COMPLETE BLOOD COUNT 7748288 Lymph Auto 51.6 % 11/01/2016 COMPLETE BLOOD COUNT 6962611 [place] Auto 8.8 % 11/01/2016 COMPLETE BLOOD COUNT 5033814 RDW 13.5 % 11/01/2016 COMPLETE BLOOD COUNT 5156975 Eos Auto 3.4 % 11/01/2016 COMPLETE BLOOD COUNT 2594527 Baso Auto 0.4 % 11/01/2016 COMPLETE BLOOD COUNT 4123285 Neutrophil Abs 2.40 10e9/L 11/01/2016 COMPLETE BLOOD COUNT 7718014 Lymphocyte Abs 3.46 10e9/L 11/01/2016 COMPLETE BLOOD COUNT 8284093 Monocyte Abs 0.59 10e9/L 11/01/2016 COMPLETE BLOOD COUNT 8069542 Eosinophil Abs 0.23 10e9/L 11/01/2016 COMPLETE BLOOD COUNT 6334191 RDW-SD 45.3 fL 11/01/2016 COMPLETE BLOOD COUNT 3114550 Basophil Abs 0.03 10e9/L 11/01/2016 THYROID STIMULATING HORMONE 62234 TSH 1.981 uIU/mL 7 COMPLETE BLOOD COUNT 4296239 WBC 6.0 10e9/L 05/13/2016 COMPLETE BLOOD COUNT 0121353 RBC 4.29 10e12/L 7 COMPLETE BLOOD COUNT 9413898 HEMOGLOBIN 12.9 g/dL 05/13/2016 COMPLETE BLOOD COUNT 4822323 HEMATOCRIT 38.4 % 05/13/2016 COMPLETE BLOOD COUNT 3451263 MCV 89.5 fL 05/13/2016 COMPLETE BLOOD COUNT 1717194 MCH 30.1 pg 05/13/2016 COMPLETE BLOOD COUNT 8493799 MCHC 33.6 g/dL 05/13/2016 COMPLETE BLOOD COUNT 0254319 PLATELET COUNT 181 10e9/L 05/13/2016 COMPLETE BLOOD COUNT 0735453 Mean Plt Volume 11.7 fL 05/13/2016 COMPLETE BLOOD COUNT 6789728 Neut Auto 36.9 % 05/13/2016 COMPLETE BLOOD COUNT 0954113 Lymph Auto 50.4 % 05/13/2016 COMPLETE BLOOD COUNT 2710405 [place] Auto 9.0 % 05/13/2016 COMPLETE BLOOD COUNT 2465962 RDW 13.7 % 05/13/2016 COMPLETE BLOOD COUNT 3216683 Eos Auto 3.4 % 05/13/2016 COMPLETE BLOOD COUNT 4066523 Baso Auto 0.3 % 05/13/2016 COMPLETE BLOOD COUNT 7591369 Neutrophil Abs 2.21 10e9/L 05/13/2016 COMPLETE BLOOD COUNT 0296053 Lymphocyte Abs 3.02 10e9/L 05/13/2016 COMPLETE BLOOD COUNT 1945080 Monocyte Abs 0.54 10e9/L 05/13/2016 COMPLETE BLOOD COUNT 7386432 Eosinophil Abs 0.20 10e9/L 05/13/2016 COMPLETE BLOOD COUNT 3899887 RDW-SD 44.0 fL 05/13/2016 COMPLETE BLOOD COUNT 7946590 Basophil Abs 0.02 10e9/L 05/13/2016 GLYCOSYLATED HEMOGLOBIN TEST 24088 Hgb A1c 39332-8 5.4 % 05/13/2016 THYROID STIMULATING HORMONE 18813 TSH 2.200 uIU/mL 7 GFR CALC 8008963 GFR Non Afr Amr 50 mL/min 05/13/2016 GFR CALC 0531762 GFR Afr Amr >60 mL/min 05/13/2016 MEAN GLUC 1408584 Calc M steven Gluc 108 mg/dL 05/13/2016 COMPREHENSIVE METABOLIC 60141 AST 18 U/L 05/13/2016 COMPREHENSIVE METABOLIC 46310 ALT 10 U/L 05/13/2016 COMPREHENSIVE METABOLIC 04520 BUN 20 mg/dL 05/13/2016 COMPREHENSIVE METABOLIC 60558 ALBUMIN 4.1 g/dL 05/13/2016 COMPREHENSIVE METABOLIC 86154 CHLORIDE 109 mmol/L 05/13/2016 COMPREHENSIVE METABOLIC 22825 Bili Total 0.6 mg/dL 05/13/2016 COMPREHENSIVE METABOLIC 67192 ALK PHOS 64 U/L 05/13/2016 COMPREHENSIVE METABOLIC 74416 SODIUM 141 mmol/L 05/13/2016 COMPREHENSIVE METABOLIC 14740 CREATININE 1.06 mg/dL 05/13/2016 COMPREHENSIVE METABOLIC 21067 CALCIUM 9.9 mg/dL 05/13/2016 COMPREHENSIVE METABOLIC 09245 POTASSIUM 4.2 mmol/L 05/13/2016 COMPREHENSIVE METABOLIC 25813 Total Protein 6.3 g/dL 05/13/2016 COMPREHENSIVE METABOLIC 89945 Glucose 99 mg/dL 05/13/2016 COMPREHENSIVE METABOLIC 99551 Bicarbonate 21 mmol/L 05/13/2016 COMPREHENSIVE METABOLIC 22880 AGAP 11 mmol/L 05/13/2016 LIPID GROUP 91955 Choles terol 169 mg/dL 11/25/2015 LIPID GROUP 27106 Trigly ceride 165 mg/dL 11/25/2015 LIPID GROUP 36655 HDL CH OLESTEROL 43 mg/dL 11/25/2015 LIPID GROUP 64849 Chol/H DL Ratio 3.93 ratio 11/25/2015 LIPID GROUP 61366 NON-HD L Chol 126 mg/dL 11/25/2015 LIPID GROUP 28996 LDL Ch olesterol 93 mg/dL 11/25/2015 COMPREHENSIVE METABOLIC 04023 AST 18 U/L 11/25/2015 COMPREHENSIVE METABOLIC 75132 ALT 10 U/L 11/25/2015 COMPREHENSIVE METABOLIC 98071 BUN 20 mg/dL 11/25/2015 COMPREHENSIVE METABOLIC 71624 ALBUMIN 3.9 g/dL 11/25/2015 COMPREHENSIVE METABOLIC 97336 CHLORIDE 110 mmol/L 11/25/2015 COMPREHENSIVE METABOLIC 68499 Bili Total 0.5 mg/dL 11/25/2015 COMPREHENSIVE METABOLIC 24722 ALK PHOS 72 U/L 11/25/2015 COMPREHENSIVE METABOLIC 50933 SODIUM 141 mmol/L 11/25/2015 COMPREHENSIVE METABOLIC 96128 CREATININE 1.12 mg/dL 11/25/2015 COMPREHENSIVE METABOLIC 27117 CALCIUM 9.7 mg/dL 11/25/2015 COMPREHENSIVE METABOLIC 45139 POTASSIUM 4.4 mmol/L 11/25/2015 COMPREHENSIVE METABOLIC 75031 Total Protein 6.2 g/dL 11/25/2015 COMPREHENSIVE METABOLIC 95930 Glucose 90 mg/dL 11/25/2015 COMPREHENSIVE METABOLIC 06246 Bicarbonate 23 mmol/L 11/25/2015 COMPREHENSIVE METABOLIC 55466 AGAP 8 mmol/L 11/25/2015 GFR CALC 9867550 GFR Non Afr Amr 47 mL/min 11/25/2015 GFR CALC 2828146 GFR Afr Amr 57 mL/min 11/25/2015 GLYCOSYLATED HEMOGLOBIN TEST 88291 Hgb A1c 61279-0 5.5 % 11/25/2015 THYROID STIMULATING HORMONE 25623 TSH 2.537 uIU/mL 6 FREE T4 11559 T4 Free 1.36 ng/dL 11/25/2015 COMPLETE BLOOD COUNT 9281193 WBC 6.8 10e9/L 11/25/2015 COMPLETE BLOOD COUNT 7849479 RBC 4.20 10e12/L 6 COMPLETE BLOOD COUNT 8147981 HEMOGLOBIN 12.5 g/dL 11/25/2015 COMPLETE BLOOD COUNT 4820244 HEMATOCRIT 38.0 % 11/25/2015 COMPLETE BLOOD COUNT 9455285 MCV 90.5 fL 11/25/2015 COMPLETE BLOOD COUNT 4683251 MCH 29.8 pg 11/25/2015 COMPLETE BLOOD COUNT 6596989 MCHC 32.9 g/dL 11/25/2015 COMPLETE BLOOD COUNT 7025562 PLATELET COUNT 197 10e9/L 11/25/2015 COMPLETE BLOOD COUNT 8029757 Mean Plt Volume 11.7 fL 11/25/2015 COMPLETE BLOOD COUNT 7412244 Neut Auto 41.3 % 11/25/2015 COMPLETE BLOOD COUNT 0135481 Lymph Auto 47.1 % 11/25/2015 COMPLETE BLOOD COUNT 8708264 [place] Auto 7.8 % 11/25/2015 COMPLETE BLOOD COUNT 6105287 RDW 13.8 % 11/25/2015 COMPLETE BLOOD COUNT 3149586 Eos Auto 3.4 % 11/25/2015 COMPLETE BLOOD COUNT 1766052 Baso Auto 0.4 % 11/25/2015 COMPLETE BLOOD COUNT 3673648 Neutrophil Abs 2.81 10e9/L 11/25/2015 COMPLETE BLOOD COUNT 3717687 Lymphocyte Abs 3.20 10e9/L 11/25/2015 COMPLETE BLOOD COUNT 6668530 Monocyte Abs 0.53 10e9/L 11/25/2015 COMPLETE BLOOD COUNT 1735861 Eosinophil Abs 0.23 10e9/L 11/25/2015 COMPLETE BLOOD COUNT 2438341 RDW-SD 44.4 fL 11/25/2015 COMPLETE BLOOD COUNT 1103274 Basophil Abs 0.03 10e9/L 11/25/2015 MEAN GLUC 4868120 Calc M steven Gluc 111 mg/dL 11/25/2015 [place] [address] Glucose 89 MG/DL 02/19/2015 [place] [address] CREATININE 1.12 MG/DL 02/19/2015 [place] [address] BUN 20 MG/DL 02/19/2015 [place] [address] SODIUM 139 MMOL/L 02/19/2015 [place] [address] POTASSIUM 4.6 MMOL/L 02/19/2015 [place] [address] CHLORIDE 108 MMOL/L 02/19/2015 [place] [address] BICARB 26 MMOL/L 02/19/2015 [place] [address] ANION GAP 5 MEQ/L 02/19/2015 [place] [address] CALCIUM 10.0 MG/DL 02/19/2015 GFR CALC 3585865 GFR AA 57.0L ML/MIN 02/19/2015 GFR CALC 8844039 GFR NON -AA 47.0L ML/MIN 5 THYROID STIMULATING HORMONE 95630 TSH 2.378 uIU/ML 5 COMPLETE BLOOD COUNT 7151694 WBC 6.4 10e9/L 11/14/2014 COMPLETE BLOOD COUNT 9221430 RBC 3.99 10e12/L 5 COMPLETE BLOOD COUNT 7557784 HGB 11.9 g/dL 11/14/2014 COMPLETE BLOOD COUNT 0604542 HCT DET 36.9 % 11/14/2014 COMPLETE BLOOD COUNT 2042519 MCV 92.5 fL 11/14/2014 COMPLETE BLOOD COUNT 7078829 MCH 29.8 pg 11/14/2014 COMPLETE BLOOD COUNT 6260159 MCHC 32.2 g/dL 11/14/2014 COMPLETE BLOOD COUNT 9895187 PLT 172 10e9/L 11/14/2014 COMPLETE BLOOD COUNT 9533635 MPV 11.7 fL 11/14/2014 COMPLETE BLOOD COUNT 0610559 CINTHYA % 40.4 % 11/14/2014 COMPLETE BLOOD COUNT 4007297 LY % 48.0 % 11/14/2014 COMPLETE BLOOD COUNT 8796723 MON % 8.3 % 11/14/2014 COMPLETE BLOOD COUNT 2670006 EOS % 2.8 % 11/14/2014 COMPLETE BLOOD COUNT 4832427 BASO % 0.5 % 11/14/2014 COMPLETE BLOOD COUNT 6584420 RDW 13.6 % 11/14/2014 COMPLETE BLOOD COUNT 2860378 ABS CINTHYA 2.59 10e9/L 11/14/2014 COMPLETE BLOOD COUNT 7098998 ABS LYMPH 3.07 10e9/L 11/14/2014 COMPLETE BLOOD COUNT 9396889 ABS MONO 0.53 10e9/L 11/14/2014 COMPLETE BLOOD COUNT 3337977 ABS EOS 0.18 10e9/L 11/14/2014 COMPLETE BLOOD COUNT 5679447 ABS BASO 0.03 10e9/L 11/14/2014 COMPLETE BLOOD COUNT 7325322 RDW-SD 44.9 fL 11/14/2014 LIPID GROUP [address] 42 MG/DL 11/14/2014 LIPID GROUP 17530 TRIG 177 MG/DL 11/14/2014 LIPID GROUP 49892 TEST L DL 72 MG/DL 11/14/2014 LIPID GROUP 88244 CHOL 149 MG/DL 11/14/2014 LIPID GROUP 10876 RCHOL/ HDL 3.55 RATIO 11/14/2014 LIPID GROUP 58964 NON-HD L CH 107 MG/DL 11/14/2014 GLYCOSYLATED HEMOGLOBIN TEST 93897 A1C HPLC 38201-9 5.5 % 11/14/2014 FREE T4 01115 FREE T4 1.39 NG/DL 11/14/2014 GFR CALC 9882138 GFR AA 55.0L ML/MIN 11/14/2014 GFR CALC [id number] GFR NON -AA 46.0L ML/MIN 5 COMPREHENSIVE METABOLIC 65155 AST 17 U/L 11/14/2014 COMPREHENSIVE METABOLIC 24563 ALT 10 IU/L 11/14/2014 COMPREHENSIVE METABOLIC 24338 BUN 20 MG/DL 11/14/2014 COMPREHENSIVE METABOLIC 80408 ALBUMIN 3.9 GM/DL 11/14/2014 COMPREHENSIVE METABOLIC 46816 CHLORIDE 111 MMOL/L 11/14/2014 COMPREHENSIVE METABOLIC 58967 BILI TOT 0.4 MG/DL 11/14/2014 COMPREHENSIVE METABOLIC 87745 ALK PHOS 70 U/L 11/14/2014 COMPREHENSIVE METABOLIC 84951 SODIUM 142 MMOL/L 11/14/2014 COMPREHENSIVE METABOLIC 18321 CREATININE 1.16 MG/DL 11/14/2014 COMPREHENSIVE METABOLIC 37461 CALCIUM 9.4 MG/DL 11/14/2014 COMPREHENSIVE METABOLIC 31189 POTASSIUM 4.6 MMOL/L 11/14/2014 COMPREHENSIVE METABOLIC 46461 PROT TOT 6.2 GM/DL 11/14/2014 COMPREHENSIVE METABOLIC 30162 Glucose 90 MG/DL 11/14/2014 COMPREHENSIVE METABOLIC 00144 BICARB 24 MMOL/L 11/14/2014 COMPREHENSIVE METABOLIC 94716 ANION GAP 7 MEQ/L 11/14/2014 THYROID STIMULATING HORMONE 15694 TSH 2.427 uIU/ML 5 LIPID GROUP [address] 47 MG/DL 05/10/2014 LIPID GROUP 67842 TRIG 145 MG/DL 05/10/2014 LIPID GROUP 93195 TEST L DL 73 MG/DL 05/10/2014 LIPID GROUP 00506 CHOL 149 MG/DL 05/10/2014 LIPID GROUP 86581 RCHOL/ HDL 3.17 RATIO 05/10/2014 LIPID GROUP 91153 NON-HD L CH 102 MG/DL 05/10/2014 COMPREHENSIVE METABOLIC 42318 AST 17 U/L 05/10/2014 COMPREHENSIVE METABOLIC 27098 ALT 9 IU/L 05/10/2014 COMPREHENSIVE METABOLIC 00631 BUN 19 MG/DL 05/10/2014 COMPREHENSIVE METABOLIC 41073 ALBUMIN 4.3 GM/DL 05/10/2014 COMPREHENSIVE METABOLIC 24971 CHLORIDE 108 MMOL/L 05/10/2014 COMPREHENSIVE METABOLIC 02328 BILI TOT 0.5 MG/DL 05/10/2014 COMPREHENSIVE METABOLIC 85411 ALK PHOS 68 U/L 05/10/2014 COMPREHENSIVE METABOLIC 09414 SODIUM 140 MMOL/L 05/10/2014 COMPREHENSIVE METABOLIC 88252 CREATININE 1.08 MG/DL 05/10/2014 COMPREHENSIVE METABOLIC 44306 CALCIUM 9.9 MG/DL 05/10/2014 COMPREHENSIVE METABOLIC 13880 POTASSIUM 4.3 MMOL/L 05/10/2014 COMPREHENSIVE METABOLIC 82014 PROT TOT 7.2 GM/DL 05/10/2014 COMPREHENSIVE METABOLIC 40517 Glucose 94 MG/DL 05/10/2014 COMPREHENSIVE METABOLIC 33061 BICARB 26 MMOL/L 05/10/2014 COMPREHENSIVE METABOLIC 20028 ANION GAP 6 MEQ/L 05/10/2014 GFR CALC [id number] GFR AA 60.0L ML/MIN 05/10/2014 GFR CALC [id number] GFR NON -AA 49.0L ML/MIN 5 GLYCOSYLATED HEMOGLOBIN TEST 94666 A1C HPLC 26020-8 5.6 % 05/10/2014 COMPLETE BLOOD COUNT [id number] WBC 7.2 10e9/L 05/10/2014 COMPLETE BLOOD COUNT [id number] RBC 4.28 10e12/L 5 COMPLETE BLOOD COUNT [id number] HGB 12.8 g/dL 05/10/2014 COMPLETE BLOOD COUNT 2976629 HCT DET 39.3 % 05/10/2014 COMPLETE BLOOD COUNT 4098178 MCV 91.8 fL 05/10/2014 COMPLETE BLOOD COUNT 0934292 MCH 29.9 pg 05/10/2014 COMPLETE BLOOD COUNT 5676088 MCHC 32.6 g/dL 05/10/2014 COMPLETE BLOOD COUNT [id number] PLT 189 10e9/L 05/10/2014 COMPLETE BLOOD COUNT 5568728 MPV 11.2 fL 05/10/2014 COMPLETE BLOOD COUNT [id number] CINTHYA % 38.0 % 05/10/2014 COMPLETE BLOOD COUNT 9709149 LY % 51.0 % 05/10/2014 COMPLETE BLOOD COUNT 5244712 MON % 7.7 % 05/10/2014 COMPLETE BLOOD COUNT 7610513 EOS % 2.9 % 05/10/2014 COMPLETE BLOOD COUNT [id number] BASO % 0.4 % 05/10/2014 COMPLETE BLOOD COUNT 3526957 RDW 14.0 % 05/10/2014 COMPLETE BLOOD COUNT 6728417 ABS CINTHYA 2.74 10e9/L 05/10/2014 COMPLETE BLOOD COUNT [id number] ABS LYMPH 3.67 10e9/L 05/10/2014 COMPLETE BLOOD COUNT 5405906 ABS MONO 0.55 10e9/L 05/10/2014 COMPLETE BLOOD COUNT 4185242 ABS EOS 0.21 10e9/L 05/10/2014 COMPLETE BLOOD COUNT 4864320 ABS BASO 0.03 10e9/L 05/10/2014 COMPLETE BLOOD COUNT 9440980 RDW-SD 46.1 fL 05/10/2014 FREE T4 79486 FREE T4 1.14 NG/DL 05/10/2014 GLYCOSYLATED HEMOGLOBIN TEST 66656 A1C HPLC 04298-6 5.2 % 03/29/2013 FREE T4 65911 FREE T4 1.40 NG/DL 03/28/2013 GFR CALC [id number] GFR AA >60 ML/MIN 03/28/2013 GFR CALC 2945580 GFR NON -AA 52.0L ML/MIN 4 COMPREHENSIVE METABOLIC 05364 AST 15 U/L 03/28/2013 COMPREHENSIVE METABOLIC 86782 ALT 9 IU/L 03/28/2013 COMPREHENSIVE METABOLIC 21710 BUN 17 MG/DL 03/28/2013 COMPREHENSIVE METABOLIC 88604 ALBUMIN 4.0 GM/DL 03/28/2013 COMPREHENSIVE METABOLIC 25815 CHLORIDE 112 MMOL/L 03/28/2013 COMPREHENSIVE METABOLIC 36359 BILI TOT 0.5 MG/DL 03/28/2013 COMPREHENSIVE METABOLIC 06504 ALK PHOS 66 U/L 03/28/2013 COMPREHENSIVE METABOLIC 80973 SODIUM 140 MMOL/L 03/28/2013 COMPREHENSIVE METABOLIC 25568 CREATININE 1.03 MG/DL 03/28/2013 COMPREHENSIVE METABOLIC 36879 CALCIUM 9.5 MG/DL 03/28/2013 COMPREHENSIVE METABOLIC 58866 POTASSIUM 4.1 MMOL/L 03/28/2013 COMPREHENSIVE METABOLIC 73007 PROT TOT 6.2 GM/DL 03/28/2013 COMPREHENSIVE METABOLIC 33241 Glucose 102 MG/DL 03/28/2013 COMPREHENSIVE METABOLIC 29931 BICARB 23 MMOL/L 03/28/2013 COMPREHENSIVE METABOLIC 16607 ANION GAP 5 MEQ/L 03/28/2013 THYROID STIMULATING HORMONE 52357 TSH 2.074 uIU/ML 4 VITAMIN B 12 FOLIC ACID 89023|54508 VIT B 12 423 PG/ML 03/28/2013 VITAMIN B 12 FOLIC ACID 21205|43546 FOLIC ACID 19.7 NG/ML 03/28/2013 LIPID GROUP [address] 40 MG/DL 03/28/2013 LIPID GROUP 60932 TRIG 145 MG/DL 03/28/2013 LIPID GROUP 40448 TEST L DL 81 MG/DL 03/28/2013 LIPID GROUP 32223 CHOL 150 MG/DL 03/28/2013 LIPID GROUP 95502 RCHOL/ HDL 3.75 RATIO 03/28/2013 COMPLETE BLOOD COUNT 2414489 WBC 6.0 10e9/L 03/28/2013 COMPLETE BLOOD COUNT 6283265 RBC 4.26 10e12/L 4 COMPLETE BLOOD COUNT 9120609 HGB 12.7 g/dL 03/28/2013 COMPLETE BLOOD COUNT 1114440 HCT DET 38.7 % 03/28/2013 COMPLETE BLOOD COUNT 4465846 MCV 90.8 fL 03/28/2013 COMPLETE BLOOD COUNT 4808534 MCH 29.8 pg 03/28/2013 COMPLETE BLOOD COUNT 3414384 MCHC 32.8 g/dL 03/28/2013 COMPLETE BLOOD COUNT 0130589 PLT 178 10e9/L 03/28/2013 COMPLETE BLOOD COUNT 4715870 MPV 11.7 fL 03/28/2013 COMPLETE BLOOD COUNT 5228420 CINTHYA % 30.5 % 03/28/2013 COMPLETE BLOOD COUNT 5204164 LY % 55.4 % 03/28/2013 COMPLETE BLOOD COUNT 0872499 MON % 9.0 % 03/28/2013 COMPLETE BLOOD COUNT 8103931 EOS % 4.4 % 03/28/2013 COMPLETE BLOOD COUNT 0826083 BASO % 0.7 % 03/28/2013 COMPLETE BLOOD COUNT 7707500 RDW 13.3 % 03/28/2013 COMPLETE BLOOD COUNT 8202460 ABS CINTHYA 1.83 10e9/L 03/28/2013 COMPLETE BLOOD COUNT 7468187 ABS LYMPH 3.32 10e9/L 03/28/2013 COMPLETE BLOOD COUNT 7833857 ABS MONO 0.54 10e9/L 03/28/2013 COMPLETE BLOOD COUNT 3115501 ABS EOS 0.26 10e9/L 03/28/2013 COMPLETE BLOOD COUNT 0708517 ABS BASO 0.04 10e9/L 03/28/2013 COMPLETE BLOOD COUNT 6168520 RDW-SD 43.2 fL 03/28/2013 HEMOGLOBIN A1C (GLYCOSYLATED) 2475575 A1C [facility] 10228-0 5.5 % 02/24/2012 COMPLETE BLOOD COUNT 0194864 WBC 6.0 10e9/L 02/23/2012 COMPLETE BLOOD COUNT 2389656 RBC 4.22 10e12/L 2 COMPLETE BLOOD COUNT 3169275 HGB 12.4 g/dL 02/23/2012 COMPLETE BLOOD COUNT 1260617 HCT DET 38.2 % 02/23/2012 COMPLETE BLOOD COUNT 1236089 MCV 90.5 fL 02/23/2012 COMPLETE BLOOD COUNT 2491698 MCH 29.4 pg 02/23/2012 COMPLETE BLOOD COUNT 8433421 MCHC 32.5 g/dL 02/23/2012 COMPLETE BLOOD COUNT 8502370 PLT 187 10e9/L 02/23/2012 COMPLETE BLOOD COUNT 2029323 MPV 11.5 fL 02/23/2012 COMPLETE BLOOD COUNT 4339088 CINTHYA % 36.4 % 02/23/2012 COMPLETE BLOOD COUNT 5143599 LY % 51.0 % 02/23/2012 COMPLETE BLOOD COUNT 6553421 MON % 8.7 % 02/23/2012 COMPLETE BLOOD COUNT 6940951 EOS % 3.2 % 02/23/2012 COMPLETE BLOOD COUNT 8203863 BASO % 0.7 % 02/23/2012 COMPLETE BLOOD COUNT 6939770 RDW 13.7 % 02/23/2012 COMPLETE BLOOD COUNT 8737311 ABS CINTHYA 2.18 10e9/L 02/23/2012 COMPLETE BLOOD COUNT 9209552 ABS LYMPH 3.06 10e9/L 02/23/2012 COMPLETE BLOOD COUNT 1245973 ABS MONO 0.52 10e9/L 02/23/2012 COMPLETE BLOOD COUNT 4486288 ABS EOS 0.19 10e9/L 02/23/2012 COMPLETE BLOOD COUNT 3118111 ABS BASO 0.04 10e9/L 02/23/2012 COMPLETE BLOOD COUNT 4905807 RDW-SD 44.3 fL 02/23/2012 LIPID GROUP [address] 42 MG/DL 02/23/2012 LIPID GROUP 63661 TRIG 156 MG/DL 02/23/2012 LIPID GROUP 09960 TEST L DL 80 MG/DL 02/23/2012 LIPID GROUP 65084 CHOL 153 MG/DL 02/23/2012 LIPID GROUP 97710 RCHOL/ HDL 3.64 RATIO 02/23/2012 FREE T4 06473 FREE T4 1.22 NG/DL 02/23/2012 COMPREHENSIVE METABOLIC 57603 AST 20 U/L 02/23/2012 COMPREHENSIVE METABOLIC 40658 ALT 11 IU/L 02/23/2012 COMPREHENSIVE METABOLIC 93859 BUN 19 MG/DL 02/23/2012 COMPREHENSIVE METABOLIC 34609 ALBUMIN 4.3 GM/DL 02/23/2012 COMPREHENSIVE METABOLIC 93461 CHLORIDE 109 MMOL/L 02/23/2012 COMPREHENSIVE METABOLIC 34424 BILI TOT 0.6 MG/DL 02/23/2012 COMPREHENSIVE METABOLIC 53917 ALK PHOS 84 U/L 02/23/2012 COMPREHENSIVE METABOLIC 10693 SODIUM 142 MMOL/L 02/23/2012 COMPREHENSIVE METABOLIC 80247 CREATININE 1.09 MG/DL 02/23/2012 COMPREHENSIVE METABOLIC 76505 CALCIUM 9.8 MG/DL 02/23/2012 COMPREHENSIVE METABOLIC 65803 POTASSIUM 4.2 MMOL/L 02/23/2012 COMPREHENSIVE METABOLIC 09156 PROT TOT 6.4 GM/DL 02/23/2012 COMPREHENSIVE METABOLIC 14672 Glucose 89 MG/DL 02/23/2012 COMPREHENSIVE METABOLIC 57168 BICARB 25 MMOL/L 02/23/2012 COMPREHENSIVE METABOLIC 70430 ANION GAP 8 MEQ/L 02/23/2012 GFR CALC 6080408 GFR AA 60.0L ML/MIN 02/23/2012 GFR CALC 6170482 GFR NON -AA 49.0L ML/MIN 2 THYROID STIMULATING HORMONE 12922 TSH 2.450 uIU/ML 2 COMPREHENSIVE METABOLIC 51170 AST 22 U/L 04/01/2011 COMPREHENSIVE METABOLIC 70875 ALT 14 IU/L 04/01/2011 COMPREHENSIVE METABOLIC 06840 BUN 21 MG/DL 04/01/2011 COMPREHENSIVE METABOLIC 43324 ALBUMIN 4.3 GM/DL 04/01/2011 COMPREHENSIVE METABOLIC 57761 CHLORIDE 106 MMOL/L 04/01/2011 COMPREHENSIVE METABOLIC 11935 BILI TOT 0.4 MG/DL 04/01/2011 COMPREHENSIVE METABOLIC 95218 ALK PHOS 80 U/L 04/01/2011 COMPREHENSIVE METABOLIC 60606 SODIUM 141 MMOL/L 04/01/2011 COMPREHENSIVE METABOLIC 13451 CREATININE 1.13 MG/DL 04/01/2011 COMPREHENSIVE METABOLIC 46020 CALCIUM 9.4 MG/DL 04/01/2011 COMPREHENSIVE METABOLIC 42344 POTASSIUM 4.3 MMOL/L 04/01/2011 COMPREHENSIVE METABOLIC 86298 PROT TOT 6.7 GM/DL 04/01/2011 COMPREHENSIVE METABOLIC 17544 Glucose 98 MG/DL 04/01/2011 COMPREHENSIVE METABOLIC 64438 BICARB 25 MMOL/L 04/01/2011 COMPREHENSIVE METABOLIC 87193 ANION GAP 10 MEQ/L 04/01/2011 LIPID GROUP [address] 44 MG/DL 04/01/2011 LIPID GROUP 20984 TRIG 164 MG/DL 04/01/2011 LIPID GROUP 89908 TEST L DL 98 MG/DL 04/01/2011 LIPID GROUP 94054 CHOL 175 MG/DL 04/01/2011 LIPID GROUP 03644 RCHOL/ HDL 3.98 RATIO 04/01/2011 COMPLETE BLOOD COUNT 36152 WBC 6.7 10e9/L 04/01/2011 COMPLETE BLOOD COUNT 95058 RBC 4.36 10e12/L 2 COMPLETE BLOOD COUNT 82071 HGB 12.9 g/dL 04/01/2011 COMPLETE BLOOD COUNT 50154 HCT DET 39.4 % 04/01/2011 COMPLETE BLOOD COUNT 18270 MCV 90.4 fL 04/01/2011 COMPLETE BLOOD COUNT 43573 MCH 29.6 pg 04/01/2011 COMPLETE BLOOD COUNT 41804 MCHC 32.7 g/dL 04/01/2011 COMPLETE BLOOD COUNT 52310 PLT 184 10e9/L 04/01/2011 COMPLETE BLOOD COUNT 53482 MPV 10.9 fL 04/01/2011 COMPLETE BLOOD COUNT 01096 CINTHYA % 41.5 % 04/01/2011 COMPLETE BLOOD COUNT 96330 LY % 45.7 % 04/01/2011 COMPLETE BLOOD COUNT 00396 MON % 9.4 % 04/01/2011 COMPLETE BLOOD COUNT 02384 EOS % 3.0 % 04/01/2011 COMPLETE BLOOD COUNT 52382 BASO % 0.4 % 04/01/2011 COMPLETE BLOOD COUNT 75507 RDW 13.2 % 04/01/2011 COMPLETE BLOOD COUNT 81150 ABS CINTHYA 2.78 10e9/L 04/01/2011 COMPLETE BLOOD COUNT 19992 ABS LYMPH 3.06 10e9/L 04/01/2011 COMPLETE BLOOD COUNT 20441 ABS MONO 0.63 10e9/L 04/01/2011 COMPLETE BLOOD COUNT 13225 ABS EOS 0.20 10e9/L 04/01/2011 COMPLETE BLOOD COUNT 89024 ABS BASO 0.03 10e9/L 04/01/2011 COMPLETE BLOOD COUNT 49232 RDW-SD 42.3 fL 04/01/2011 GFR CALC 9055695 GFR AA 57.0L ML/MIN 04/01/2011 GFR CALC 9865447 GFR NON -AA 47.0L ML/MIN 2 THYROID STIMULATING HORMONE 26062 TSH 2.663 uIU/ML 2 FREE T4 98363 FREE T4 1.15 NG/DL 04/01/2011 THYROID STIMULATING HORMONE 35621 TSH 1.908 uIU/ML 1 COMPLETE BLOOD COUNT 94477 WBC 6.4 10e9/L 07/06/2010 COMPLETE BLOOD COUNT 07591 RBC 3.92 10e12/L 1 COMPLETE BLOOD COUNT 87824 HGB 11.8 g/dL 07/06/2010 COMPLETE BLOOD COUNT 45454 HCT DET 36.0 % 07/06/2010 COMPLETE BLOOD COUNT 38268 MCV 91.8 fL 07/06/2010 COMPLETE BLOOD COUNT 27369 MCH 30.1 pg 07/06/2010 COMPLETE BLOOD COUNT 72421 MCHC 32.8 g/dL 07/06/2010 COMPLETE BLOOD COUNT 20623 PLT 176 10e9/L 07/06/2010 COMPLETE BLOOD COUNT 98859 MPV 11.4 fL 07/06/2010 COMPLETE BLOOD COUNT 22162 CINTHYA % 50.4 % 07/06/2010 COMPLETE BLOOD COUNT 19292 LY % 35.5 % 07/06/2010 COMPLETE BLOOD COUNT 01994 MON % 10.2 % 07/06/2010 COMPLETE BLOOD COUNT 25482 EOS % 3.3 % 07/06/2010 COMPLETE BLOOD COUNT 99144 BASO % 0.6 % 07/06/2010 COMPLETE BLOOD COUNT 90139 RDW 13.7 % 07/06/2010 COMPLETE BLOOD COUNT 64164 ABS CINTHYA 3.23 10e9/L 07/06/2010 COMPLETE BLOOD COUNT 51233 ABS LYMPH 2.27 10e9/L 07/06/2010 COMPLETE BLOOD COUNT 51459 ABS MONO 0.65 10e9/L 07/06/2010 COMPLETE BLOOD COUNT 59915 ABS EOS 0.21 10e9/L 07/06/2010 COMPLETE BLOOD COUNT 53628 ABS BASO 0.04 10e9/L 07/06/2010 COMPLETE BLOOD COUNT 46395 RDW-SD 45.3 fL 07/06/2010 GFR CALC 7923199 GFR AA >60 ML/MIN 07/06/2010 GFR CALC 4303363 GFR NON -AA 53.0L ML/MIN 1 FREE T4 82226 FREE T4 1.20 NG/DL 07/06/2010 COMPREHENSIVE METABOLIC 89723 AST 17 U/L 07/06/2010 COMPREHENSIVE METABOLIC 10493 ALT 9 IU/L 07/06/2010 COMPREHENSIVE METABOLIC 54255 BUN 16 MG/DL 07/06/2010 COMPREHENSIVE METABOLIC 79284 ALBUMIN 4.0 GM/DL 07/06/2010 COMPREHENSIVE METABOLIC 27540 CHLORIDE 108 MMOL/L 07/06/2010 COMPREHENSIVE METABOLIC 12871 BILI TOT 0.5 MG/DL 07/06/2010 COMPREHENSIVE METABOLIC 36272 ALK PHOS 76 U/L 07/06/2010 COMPREHENSIVE METABOLIC 77356 SODIUM 139 MMOL/L 07/06/2010 COMPREHENSIVE METABOLIC 24301 CREATININE 1.02 MG/DL 07/06/2010 COMPREHENSIVE METABOLIC 25761 CALCIUM 9.2 MG/DL 07/06/2010 COMPREHENSIVE METABOLIC 30423 POTASSIUM 4.5 MMOL/L 07/06/2010 COMPREHENSIVE METABOLIC 81692 PROT TOT 6.1 GM/DL 07/06/2010 COMPREHENSIVE METABOLIC 25947 Glucose 93 MG/DL 07/06/2010 COMPREHENSIVE METABOLIC 28120 BICARB 26 MMOL/L 07/06/2010 COMPREHENSIVE METABOLIC 11266 ANION GAP 5 MEQ/L 07/06/2010 LIPID GROUP [address] 46 MG/DL 07/06/2010 LIPID GROUP 38538 TRIG 102 MG/DL 07/06/2010 LIPID GROUP 55506 TEST L DL 88 MG/DL 07/06/2010 LIPID GROUP 34267 CHOL 154 MG/DL 07/06/2010 LIPID GROUP 60097 RCHOL/ HDL 3.35 RATIO 07/06/2010 Review of Systems System Result Effective Dates Constitutional No fatigue 11/07/2018 Constitutional No fever 11/07/2018 Ears/Nose/Throat/Neck No dizziness 11/07/2018 Ears/Nose/Throat/Neck No headache 11/07/2018 Ears/Nose/Throat/Neck No nasal discharge 11/07/2018 Ears/Nose/Throat/Neck No otalgia 11/07/2018 Ears/Nose/Throat/Neck No sinus congestion 11/07/2018 Ears/Nose/Throat/Neck No sinusitis 11/07/2018 Ears/Nose/Throat/Neck No postnasal drip 11/07/2018 Ears/Nose/Throat/Neck No otorrhea 11/07/2018 Ears/Nose/Throat/Neck No sore throat 11/07/2018 Ears/Nose/Throat/Neck hearing loss 11/07/2018 Respiratory No cough 05/2018 Respiratory No dyspnea 0 11/07/2018 Gastrointestinal No abdominal pain 11/07/2018 Gastrointestinal No constipation 11/07/2018 Gastrointestinal No diarrhea 11/07/2018 Dermatologic No rash 05/2018 Dermatologic No sores Musculoskeletal No myalgias 11/07/2018 Cardiovascular arrhythmia 08/14/2018 Cardiovascular No chest pain/pressure 08/14/2018 Cardiovascular No edema 08/14/2018 Cardiovascular No exercise intolerance 08/14/2018 Cardiovascular No orthopnea 08/14/2018 Cardiovascular No palpitations 08/14/2018 Cardiovascular hypertension 08/14/2018 Gastrointestinal gastroesophageal reflux 08/14/2018 Respiratory No asthma Respiratory No cough 12/2018 Respiratory No dyspnea 0 08/14/2018 Respiratory No pleuritic pain 08/14/2018 Respiratory No productive sputum 08/14/2018 Respiratory No wheezing 08/14/2018 Musculoskeletal back pain 08/14/2018 Constitutional fatigue 0 08/14/2018 Gastrointestinal No hemorrhoids 05/10/2018 Gastrointestinal No hepatitis 05/10/2018 Gastrointestinal No abdominal pain 05/10/2018 Gastrointestinal No constipation 05/10/2018 Gastrointestinal No diarrhea 05/10/2018 Gastrointestinal No gastroesophageal reflu x 05/10/2018 Gastrointestinal No melena 05/10/2018 Gastrointestinal No nausea 05/10/2018 Gastrointestinal No vomiting 05/10/2018 Cardiovascular hypertension 05/10/2018 Cardiovascular palpitations 05/10/2018 Respiratory No asthma Respiratory No cough 08/2018 Respiratory No dyspnea 0 05/10/2018 Respiratory No pleuritic pain 05/10/2018 Respiratory No productive sputum 05/10/2018 Respiratory No wheezing 05/10/2018 Genitourinary/Nephrology No urinary retention/hesitancy 05/10/2018 Gastrointestinal abdominal pain 02/14/2018 Gastrointestinal dyspepsia 02/14/2018 Gastrointestinal gastroesophageal reflux 02/14/2018 Ears/Nose/Throat/Neck No hearing loss 01/10/2018 Ears/Nose/Throat/Neck No nasal discharge 01/10/2018 Ears/Nose/Throat/Neck No sinus congestion 01/10/2018 Ears/Nose/Throat/Neck No sore throat 01/10/2018 Cardiovascular No arrhythmia 01/10/2018 Cardiovascular No chest pain/pressure 01/10/2018 Cardiovascular No edema 01/10/2018 Cardiovascular No exercise intolerance 01/10/2018 Cardiovascular No orthopnea 01/10/2018 Cardiovascular No palpitations 01/10/2018 Cardiovascular hypertension 01/10/2018 Respiratory No asthma Respiratory No cough 08/2017 Respiratory No dyspnea 1 03/12/2017 Respiratory No pleuritic pain 01/10/2018 Respiratory No productive sputum 01/10/2018 Respiratory No wheezing 01/10/2018 Gastrointestinal No hemorrhoids 01/10/2018 Gastrointestinal No hepatitis 01/10/2018 Gastrointestinal No abdominal pain 01/10/2018 Gastrointestinal No constipation 01/10/2018 Gastrointestinal No diarrhea 01/10/2018 Gastrointestinal No gastroesophageal reflu x 01/10/2018 Gastrointestinal No melena 01/10/2018 Gastrointestinal No nausea 01/10/2018 Gastrointestinal No vomiting 01/10/2018 Genitourinary/Nephrology No dysuria 01/10/2018 Genitourinary/Nephrology No nocturia 01/10/2018 Genitourinary/Nephrology No urinary incontinence 01/10/2018 Musculoskeletal No muscle weakness 01/10/2018 Musculoskeletal No myalgias 01/10/2018 Musculoskeletal No stiffness 01/10/2018 Musculoskeletal No swelling 01/10/2018 Dermatologic No rash 08/2017 Dermatologic No scar 08/2017 Neurologic No dizziness 01/10/2018 Neurologic No headache 1 03/12/2017 Neurologic No neck pain 01/10/2018 Neurologic No syncope Psychiatric anxiety 08/2017 Psychiatric No depression 01/10/2018 Endocrine No goiter 08/2017 Endocrine No hyperglycemia 01/10/2018 Endocrine No hypoglycemia 01/10/2018 Endocrine hyperlipidemia 01/10/2018 Psychiatric stress 01/10 Constitutional fatigue 1 03/12/2017 Gastrointestinal gastroesophageal reflux 12/06/2017 Gastrointestinal abdominal pain 12/06/2017 Cardiovascular fatigue 1 Constitutional fatigue 1 Cardiovascular palpitations 12/06/2017 Cardiovascular arrhythmia 12/06/2017 Respiratory No asthma Respiratory No cough 04/2017 Respiratory No dyspnea 1 Respiratory No pleuritic pain 12/06/2017 Respiratory No productive sputum 12/06/2017 Respiratory No wheezing 12/06/2017 Musculoskeletal No muscle weakness 12/06/2017 Musculoskeletal No myalgias 12/06/2017 Musculoskeletal No stiffness 12/06/2017 Musculoskeletal No swelling 12/06/2017 Neurologic No dizziness 12/06/2017 Neurologic No headache 1 Neurologic No neck pain 12/06/2017 Neurologic No syncope Psychiatric anxiety 04/2017 Psychiatric No depression 12/06/2017 Psychiatric stress 12/06 Gastrointestinal gastroesophageal reflux 11/22/2017 Gastrointestinal abdominal pain 11/22/2017 Respiratory No asthma Respiratory No cough Respiratory No dyspnea 0 11/22/2017 Respiratory No pleuritic pain 11/22/2017 Respiratory No productive sputum 11/22/2017 Respiratory No wheezing 11/22/2017 Cardiovascular chest pain/pressure 11/22/2017 Psychiatric anxiety 11/05 Musculoskeletal No muscle weakness 11/22/2017 Musculoskeletal No myalgias 11/22/2017 Musculoskeletal No stiffness 11/22/2017 Musculoskeletal No swelling 11/22/2017 Psychiatric stress 11/22 Constitutional fatigue 0 11/22/2017 Cardiovascular hypertension 10/20/2017 Psychiatric anxiety 10/05 Psychiatric stress 10/20 Neurologic headache 10/05 Neurologic dizziness Constitutional fatigue 0 09/27/2017 Neurologic dizziness Cardiovascular hypertension 09/27/2017 Cardiovascular arrhythmia 09/27/2017 Constitutional No chills 08/16/2017 Constitutional No fever 08/16/2017 Constitutional No malaise 08/16/2017 Musculoskeletal No muscle weakness 08/16/2017 Musculoskeletal No myalgias 08/16/2017 Musculoskeletal No stiffness 08/16/2017 Musculoskeletal No swelling 08/16/2017 Neurologic No dizziness 08/16/2017 Neurologic No headache 0 08/16/2017 Neurologic No neck pain 08/16/2017 Neurologic No syncope Constitutional No fever 05/30/2017 Constitutional No fatigue 05/30/2017 Ears/Nose/Throat/Neck otalgia 05/30/2017 Ears/Nose/Throat/Neck No postnasal drip 05/30/2017 Ears/Nose/Throat/Neck No otorrhea 05/30/2017 Ears/Nose/Throat/Neck No sore throat 05/30/2017 Ears/Nose/Throat/Neck No sinusitis 05/30/2017 Ears/Nose/Throat/Neck No sinus congestion 05/30/2017 Respiratory No cough Gastrointestinal No abdominal pain 05/30/2017 Gastrointestinal No constipation 05/30/2017 Neurologic No headache 0 05/30/2017 Neurologic dizziness Neurologic No tinnitus 0 05/30/2017 Neurologic vertigo 05/30 Musculoskeletal back pain 04/18/2017 Musculoskeletal joint complaint 04/18/2017 Gastrointestinal abdominal pain 04/18/2017 Musculoskeletal No muscle weakness 10/25/2016 Musculoskeletal No myalgias 10/25/2016 Musculoskeletal No stiffness 10/25/2016 Musculoskeletal No swelling 10/25/2016 Musculoskeletal low back pain 10/25/2016 Musculoskeletal thoracic back pain 10/25/2016 Neurologic gait abnormality 10/25/2016 Musculoskeletal low back pain 09/20/2016 Gastrointestinal abdominal pain 09/20/2016 Constitutional No night sweats 03/18/2016 Constitutional No chills 03/18/2016 Constitutional No fatigue 03/18/2016 Constitutional No fever 03/18/2016 Eyes No eye discharge Eyes No eye pain 017 Eyes No vision change Ears/Nose/Throat/Neck No dizziness 03/18/2016 Ears/Nose/Throat/Neck eustachian tub e dysfunction 03/18/2016 Ears/Nose/Throat/Neck No headache 03/18/2016 Ears/Nose/Throat/Neck nasal discharge 03/18/2016 Ears/Nose/Throat/Neck postnasal drip 03/18/2016 Ears/Nose/Throat/Neck sinus congestion 03/18/2016 Ears/Nose/Throat/Neck sore throat 03/18/2016 Cardiovascular No chest pain/pressure 03/18/2016 Cardiovascular No dyspnea 03/18/2016 Cardiovascular No orthopnea 03/18/2016 Cardiovascular No palpitations 03/18/2016 Cardiovascular No syncope 03/18/2016 Respiratory No chest tightness 03/18/2016 Respiratory cough 2016 Respiratory No dyspnea 0 03/18/2016 Respiratory No wheezing 03/18/2016 Gastrointestinal No diarrhea 03/18/2016 Gastrointestinal No nausea 03/18/2016 Gastrointestinal No vomiting 03/18/2016 Hematologic/Lymphatic No lymph node enlargement/mass 03/18/2016 Ears/Nose/Throat/Neck No facial pain 03/18/2016 Respiratory No chest congestion 03/18/2016 Dermatologic No rash 02/2017 Dermatologic No scar 02/2017 Constitutional fatigue 1 04/08/2015 Constitutional fever 04/2015 Ears/Nose/Throat/Neck otalgia 02/06/2016 Ears/Nose/Throat/Neck No sinus congestion 02/06/2016 Ears/Nose/Throat/Neck No sinusitis 02/06/2016 Respiratory No asthma Respiratory No cough 04/2015 Respiratory No dyspnea 1 04/08/2015 Respiratory No pleuritic pain 02/06/2016 Respiratory No productive sputum 02/06/2016 Respiratory No wheezing 02/06/2016 Dermatologic No rash 04/2015 Dermatologic No scar 04/2015 Gastrointestinal No hemorrhoids 08/26/2015 Gastrointestinal No hepatitis 08/26/2015 Gastrointestinal No abdominal pain 08/26/2015 Gastrointestinal constipation 08/26/2015 Gastrointestinal No diarrhea 08/26/2015 Gastrointestinal No gastroesophageal reflu x 08/26/2015 Gastrointestinal No melena 08/26/2015 Gastrointestinal No nausea 08/26/2015 Gastrointestinal No vomiting 08/26/2015 Cardiovascular No arrhythmia 05/21/2015 Cardiovascular No chest pain/pressure 05/21/2015 Cardiovascular No edema 05/21/2015 Cardiovascular No exercise intolerance 05/21/2015 Cardiovascular No orthopnea 05/21/2015 Cardiovascular No palpitations 05/21/2015 Cardiovascular hypertension 05/21/2015 Respiratory No asthma Respiratory No cough Respiratory No dyspnea 0 05/21/2015 Respiratory No pleuritic pain 05/21/2015 Respiratory No productive sputum 05/21/2015 Respiratory No wheezing 05/21/2015 Gastrointestinal No hemorrhoids 05/21/2015 Gastrointestinal No hepatitis 05/21/2015 Gastrointestinal No abdominal pain 05/21/2015 Gastrointestinal No constipation 05/21/2015 Gastrointestinal No diarrhea 05/21/2015 Gastrointestinal No gastroesophageal reflu x 05/21/2015 Gastrointestinal No melena 05/21/2015 Gastrointestinal No nausea 05/21/2015 Gastrointestinal No vomiting 05/21/2015 Genitourinary/Nephrology No dysuria 05/21/2015 Genitourinary/Nephrology No nocturia 05/21/2015 Genitourinary/Nephrology No urinary incontinence 05/21/2015 Musculoskeletal No muscle weakness 05/21/2015 Musculoskeletal No myalgias 05/21/2015 Musculoskeletal No stiffness 05/21/2015 Musculoskeletal No swelling 05/21/2015 Dermatologic No rash Dermatologic No scar Neurologic No dizziness 05/21/2015 Neurologic No headache 0 05/21/2015 Neurologic No neck pain 05/21/2015 Neurologic No syncope Psychiatric No anxiety 0 05/21/2015 Psychiatric No depression 05/21/2015 Endocrine No goiter 05/05 Endocrine No hyperglycemia 05/21/2015 Endocrine No hypoglycemia 05/21/2015 Ears/Nose/Throat/Neck No hearing loss 05/21/2015 Ears/Nose/Throat/Neck No nasal discharge 05/21/2015 Ears/Nose/Throat/Neck No sinus congestion 05/21/2015 Ears/Nose/Throat/Neck No sore throat 05/21/2015 Constitutional insomnia 05/21/2015 Constitutional fatigue 1 04/22/2014 Constitutional fever Ears/Nose/Throat/Neck otalgia 02/19/2015 Ears/Nose/Throat/Neck No sinus congestion 02/19/2015 Ears/Nose/Throat/Neck No sinusitis 02/19/2015 Respiratory No asthma Respiratory No cough Respiratory No dyspnea 1 04/22/2014 Respiratory No pleuritic pain 02/19/2015 Respiratory No productive sputum 02/19/2015 Respiratory No wheezing 02/19/2015 Dermatologic No rash Dermatologic No scar Neurologic dizziness Psychiatric No anxiety 1 04/22/2014 Psychiatric No depression 02/19/2015 Endocrine No goiter 02/04 Endocrine No hyperglycemia 02/19/2015 Endocrine No hypoglycemia 02/19/2015 Musculoskeletal No muscle weakness 02/19/2015 Musculoskeletal No myalgias 02/19/2015 Musculoskeletal No stiffness 02/19/2015 Musculoskeletal No swelling 02/19/2015 Genitourinary/Nephrology No dysuria 02/19/2015 Genitourinary/Nephrology No nocturia 02/19/2015 Genitourinary/Nephrology No urinary incontinence 02/19/2015 Gastrointestinal No hemorrhoids 02/19/2015 Gastrointestinal No hepatitis 02/19/2015 Gastrointestinal No abdominal pain 02/19/2015 Gastrointestinal No constipation 02/19/2015 Gastrointestinal No diarrhea 02/19/2015 Gastrointestinal No gastroesophageal reflu x 02/19/2015 Gastrointestinal No melena 02/19/2015 Gastrointestinal No nausea 02/19/2015 Gastrointestinal No vomiting 02/19/2015 Cardiovascular No arrhythmia 02/19/2015 Cardiovascular No chest pain/pressure 02/19/2015 Cardiovascular edema Cardiovascular No exercise intolerance 02/19/2015 Cardiovascular No orthopnea 02/19/2015 Cardiovascular No palpitations 02/19/2015 Ears/Nose/Throat/Neck No hearing loss 02/19/2015 Ears/Nose/Throat/Neck No nasal discharge 02/19/2015 Ears/Nose/Throat/Neck No sore throat 02/19/2015 Ears/Nose/Throat/Neck dizziness 02/19/2015 Cardiovascular hypertension 02/19/2015 Musculoskeletal arthralgia(s) 02/19/2015 Musculoskeletal low back pain 02/19/2015 Musculoskeletal back pain 02/19/2015 Neurologic vertigo 02/19 Psychiatric stress 02/19 Endocrine hyperlipidemia 02/19/2015 Hematologic/Lymphatic No abnormal ec chymoses 02/19/2015 Hematologic/Lymphatic No petechiae 02/19/2015 Hematologic/Lymphatic No abnormal bl eeding and bruising 02/19/2015 Hematologic/Lymphatic No anemia 02/19/2015 Hematologic/Lymphatic No lymph node enlargement/mass 02/19/2015 Constitutional fatigue 0 11/13/2014 Psychiatric stress 11/13 Psychiatric depression 0 11/13/2014 Ears/Nose/Throat/Neck otalgia 09/27/2014 Ears/Nose/Throat/Neck No sore throat 09/27/2014 Ears/Nose/Throat/Neck No sinus congestion 09/27/2014 Constitutional No fever 09/27/2014 Respiratory No cough Neurologic pain, limb Cardiovascular chest pain/pressure 05/23/2014 Musculoskeletal back pain 05/23/2014 Musculoskeletal muscle spasm 05/23/2014 Neurologic dizziness Cardiovascular hypertension 03/20/2014 Dermatologic skin lesion 03/20/2014 Ears/Nose/Throat/Neck dizziness 10/17/2013 Ears/Nose/Throat/Neck facial pain 10/17/2013 Ears/Nose/Throat/Neck sinusitis 10/17/2013 Ears/Nose/Throat/Neck otalgia 10/17/2013 Respiratory cough 2013 Constitutional No fever 10/17/2013 Musculoskeletal back pain 05/31/2013 Respiratory cough 2013 Ears/Nose/Throat/Neck eustachian tub e dysfunction 05/31/2013 Ears/Nose/Throat/Neck sinus congestion 05/31/2013 Ears/Nose/Throat/Neck sinusitis 05/31/2013 Ears/Nose/Throat/Neck headache 03/26/2013 Ears/Nose/Throat/Neck sinusitis 03/26/2013 Ears/Nose/Throat/Neck sore throat 03/26/2013 Respiratory cough 2013 Constitutional No fever 03/26/2013 Constitutional No recent illness 03/26/2013 Respiratory cough 2012 Cardiovascular hypertension 12/19/2012 Endocrine hyperlipidemia 12/19/2012 Endocrine obesity 2012 Gastrointestinal dyspepsia 12/19/2012 Constitutional No fever 12/19/2012 Cardiovascular hypertension 11/27/2012 Neurologic dizziness Ears/Nose/Throat/Neck sinusitis 10/04/2012 Ears/Nose/Throat/Neck sinus congestion 10/04/2012 Ears/Nose/Throat/Neck dizziness 10/04/2012 Musculoskeletal back pain 07/27/2012 Ears/Nose/Throat/Neck No hearing loss 07/27/2012 Ears/Nose/Throat/Neck No nasal discharge 07/27/2012 Ears/Nose/Throat/Neck No sinus congestion 07/27/2012 Ears/Nose/Throat/Neck No sore throat 07/27/2012 Constitutional No chills 07/14/2012 Constitutional No anorexia 07/14/2012 Constitutional recent illness 07/14/2012 Constitutional No fever 07/14/2012 Constitutional No fatigue 07/14/2012 Constitutional No malaise 07/14/2012 Constitutional No insomnia 07/14/2012 Ears/Nose/Throat/Neck sore throat 07/14/2012 Ears/Nose/Throat/Neck otalgia 07/14/2012 Ears/Nose/Throat/Neck sinus congestion 07/14/2012 Ears/Nose/Throat/Neck headache 07/14/2012 Respiratory No cough 12/2012 Genitourinary/Nephrology breast complaint 06/08/2012 Gastrointestinal abdominal pain 02/22/2012 Gastrointestinal dyspepsia 02/22/2012 Gastrointestinal gastroesophageal reflux 02/22/2012 Neurologic dizziness Ears/Nose/Throat/Neck otalgia 02/22/2012 Gastrointestinal No hemorrhoids 12/28/2011 Gastrointestinal No hepatitis 12/28/2011 Gastrointestinal abdominal pain 12/28/2011 Gastrointestinal No constipation 12/28/2011 Gastrointestinal No diarrhea 12/28/2011 Gastrointestinal gastroesophageal reflux 12/28/2011 Gastrointestinal No melena 12/28/2011 Gastrointestinal No nausea 12/28/2011 Gastrointestinal No vomiting 12/28/2011 Gastrointestinal gas and bloating 12/28/2011 Neurologic dizziness Cardiovascular hypertension 09/21/2011 Endocrine hypoglycemia 0 09/21/2011 Constitutional fatigue 0 09/21/2011 Constitutional fatigue 0 09/13/2011 Neurologic dizziness 11/2011 Musculoskeletal muscle weakness 09/13/2011 Cardiovascular hypertension 09/13/2011 Endocrine diabetes mellitus type 2 09/13/2011 Musculoskeletal sciatica 08/16/2011 Neurologic pain, limb Musculoskeletal back pain 08/16/2011 Musculoskeletal low back pain 08/03/2011 Neurologic pain, limb Musculoskeletal back pain 08/03/2011 Musculoskeletal joint complaint 08/03/2011 Musculoskeletal back pain 07/26/2011 Musculoskeletal back pain 06/28/2011 Neurologic pain, limb Neurologic pain, back Constitutional fatigue 0 06/28/2011 Constitutional fatigue 0 03/31/2011 Cardiovascular No hypertension 03/31/2011 Cardiovascular fatigue 0 03/31/2011 Cardiovascular No chest pain/pressure 03/31/2011 Respiratory No asthma Respiratory No pleuritic pain 03/31/2011 Respiratory No productive sputum 03/31/2011 Respiratory No cough Respiratory No dyspnea 0 03/31/2011 Respiratory No wheezing 03/31/2011 Gastrointestinal No hemorrhoids 03/31/2011 Gastrointestinal No hepatitis 03/31/2011 Gastrointestinal No abdominal pain 03/31/2011 Gastrointestinal No constipation 03/31/2011 Gastrointestinal No diarrhea 03/31/2011 Gastrointestinal No gastroesophageal reflu x 03/31/2011 Gastrointestinal No melena 03/31/2011 Gastrointestinal No nausea 03/31/2011 Gastrointestinal No vomiting 03/31/2011 Genitourinary/Nephrology No dysuria 03/31/2011 Genitourinary/Nephrology No nocturia 03/31/2011 Genitourinary/Nephrology No urinary incontinence 03/31/2011 Musculoskeletal arthralgia(s) 03/31/2011 Dermatologic No rash Dermatologic No scar Neurologic No dizziness 03/31/2011 Neurologic No headache 0 03/31/2011 Neurologic No neck pain 03/31/2011 Neurologic No syncope Psychiatric No anxiety 0 03/31/2011 Psychiatric No depression 03/31/2011 Endocrine No goiter 03/08 Endocrine No hyperglycemia 03/31/2011 Endocrine No hypoglycemia 03/31/2011 Ears/Nose/Throat/Neck No hearing loss 02/11/2011 Ears/Nose/Throat/Neck No nasal discharge 02/11/2011 Ears/Nose/Throat/Neck No sinus congestion 02/11/2011 Ears/Nose/Throat/Neck sore throat 02/11/2011 Ears/Nose/Throat/Neck sinusitis 02/11/2011 Ears/Nose/Throat/Neck otalgia 02/11/2011 Neurologic headache 10/2010 Respiratory cough 2010 Musculoskeletal back pain 10/15/2010 Gastrointestinal abdominal pain 10/15/2010 Neurologic dizziness 01/2011 Gastrointestinal No abdominal pain 09/29/2010 Gastrointestinal gastroesophageal reflux 09/29/2010 Gastrointestinal No dyspepsia 09/29/2010 Gastrointestinal No diarrhea 09/29/2010 Gastrointestinal No constipation 09/29/2010 Gastrointestinal No nausea 09/29/2010 Musculoskeletal back pain 09/29/2010 Gastrointestinal abdominal pain 07/02/2010 Neurologic dizziness Ears/Nose/Throat/Neck otitis media 07/02/2010 Ears/Nose/Throat/Neck otalgia 07/02/2010 Gastrointestinal gastroesophageal reflux 07/02/2010 Musculoskeletal back pain 04/06/2010 Musculoskeletal low back pain 04/06/2010 Musculoskeletal back pain 04/01/2010 Musculoskeletal low back pain 04/01/2010 Constitutional fatigue 0 04/01/2010 Psychiatric stress 04/01 Psychiatric depression 0 04/01/2010 Constitutional fever Ears/Nose/Throat/Neck headache 01/22/2010 Ears/Nose/Throat/Neck nasal discharge 01/22/2010 Ears/Nose/Throat/Neck sore throat 01/22/2010 Ears/Nose/Throat/Neck sinusitis 01/22/2010 Ears/Nose/Throat/Neck sinus congestion 01/22/2010 Ears/Nose/Throat/Neck No tonsillitis 01/22/2010 Respiratory cough 2009 Respiratory nocturnal cough 01/22/2010 Gastrointestinal No diarrhea 01/22/2010 Gastrointestinal No constipation 01/22/2010 Gastrointestinal nausea 01/22/2010 Gastrointestinal No vomiting 01/22/2010 Dermatologic No rash Dermatologic No sores Constitutional fatigue 0 12/02/2009 Gastrointestinal gastroesophageal reflux 12/02/2009 Psychiatric anxiety 11/06 Psychiatric stress 12/02 Genitourinary/Nephrology urinary urgency 12/02/2009 Constitutional fatigue 0 10/21/2009 Neurologic weakness 10/05 Psychiatric anxiety 10/05 Psychiatric stress 10/21 Neurologic dyskinesia or tremor 10/21/2009 Gastrointestinal constipation 08/11/2009 Gastrointestinal gastroesophageal reflux 08/11/2009 Gastrointestinal gas and bloating 08/11/2009 Constitutional fatigue 0 08/11/2009 Constitutional fatigue 0 06/09/2009 Psychiatric anxiety 07/2009 Psychiatric depression 0 06/09/2009 Musculoskeletal muscle weakness 06/09/2009 Gastrointestinal abdominal pain 06/09/2009 Cardiovascular hypertension 06/09/2009 Physical Exam Exam Name System Name It em Name Status Result Effective Dates Notes Full Exam - General Constitutional general appearance Overall: well nourished 11/07/2018 None Full Exam - General Constitutional general appearance Overall: in no acute distress 11/07/2018 None Full Exam - General Ears/Nose/Throat otoscopic exam Left tympanic membrane: air- fluid level 11/07/2018 None Full Exam - General Ears/Nose/Throat otoscopic exam Right tympanic membrane: air- fluid level 11/07/2018 None Full Exam - General Ears/Nose/Throat oral cavity/pharynx/larynx Oropharynx: a normal exam 11/07/2018 None Full Exam - General Respiratory respiratory effort/rhythm Overall: no retractions 11/07/2018 None Full Exam - General Respiratory respiratory effort/rhythm Overall: normal rate 11/07/2018 None Full Exam - General Neurologic mental status Overall: alert 9 None Full Exam - General Neurologic mental status Overall: oriented 11/07/2018 None Full Exam - General Constitutional general appearance Overall: well nourished 08/14/2018 None Full Exam - General Constitutional general appearance Overall: well developed 08/14/2018 None Full Exam - General Constitutional general appearance Overall: in no acute distress 08/14/2018 None Full Exam - General Neurologic mental status Overall: alert 9 None Full Exam - General Neurologic mental status Overall: oriented 08/14/2018 None Full Exam - General Psychiatric mood and affect Overall: normal mood and affect 08/14/2018 None Full Exam - General Respiratory auscultation Overall: breath sounds clear bilater ally 08/14/2018 None Full Exam - General Cardiovascular auscultation of heart Overall: regular rate 08/14/2018 None Full Exam - General Cardiovascular auscultation of heart Overall: normal heart sounds 08/14/2018 None Full Exam - General Cardiovascular auscultation of heart S4 (atrial gallop): present 08/14/2018 None Full Exam - General Cardiovascular auscultation of heart Murmur: previously known murmur unchanged 08/14/2018 None Full Exam - General Cardiovascular extremities Overall: no clubbing 08/14/2018 None Full Exam - General Cardiovascular extremities Overall: No cyanosis 08/14/2018 None Full Exam - General Cardiovascular extremities Overall: No edema 08/14/2018 None Full Exam - General Constitutional general appearance Overall: well nourished 05/10/2018 None Full Exam - General Constitutional general appearance Overall: well developed 05/10/2018 None Full Exam - General Constitutional general appearance Overall: in no acute distress 05/10/2018 None Full Exam - General Neurologic mental status Overall: alert 9 None Full Exam - General Neurologic mental status Overall: oriented 05/10/2018 None Full Exam - General Psychiatric mood and affect Overall: normal mood and affect 05/10/2018 None Full Exam - General Abdomen abdominal exam Overall: no masses 05/10/2018 None Full Exam - General Abdomen abdominal exam Overall: normal bowel sounds 05/10/2018 None Full Exam - General Abdomen abdominal exam Overall: soft 05/10/2018 None Full Exam - General Respiratory auscultation Overall: breath sounds clear bilater ally 05/10/2018 None Full Exam - General Cardiovascular auscultation of heart Overall: regular rate 05/10/2018 None Full Exam - General Cardiovascular auscultation of heart Overall: normal heart sounds 05/10/2018 None Full Exam - General Cardiovascular extremities Overall: no clubbing 05/10/2018 None Full Exam - General Cardiovascular extremities Overall: No edema 05/10/2018 None Full Exam - General Cardiovascular extremities Overall: No cyanosis 05/10/2018 None Full Exam - General Constitutional general appearance Overall: well nourished 02/14/2018 None Full Exam - General Constitutional general appearance Overall: well developed 02/14/2018 None Full Exam - General Constitutional general appearance Overall: in no acute distress 02/14/2018 None Full Exam - General Neurologic mental status Overall: alert 8 None Full Exam - General Neurologic mental status Overall: oriented 02/14/2018 None Full Exam - General Psychiatric mood and affect Overall: normal mood and affect 02/14/2018 None Full Exam - General Abdomen abdominal exam Overall: no masses 02/14/2018 None Full Exam - General Abdomen abdominal exam Overall: normal bowel sounds 02/14/2018 None Full Exam - General Abdomen abdominal exam Overall: soft 02/14/2018 None Full Exam - General Abdomen abdominal exam Epigastric: tender to palpation 02/14/2018 None Full Exam - General Abdomen abdominal exam Left upper quadrant: tender to palpa tion 02/14/2018 None Full Exam - General Respiratory auscultation Overall: breath sounds clear bilater ally 02/14/2018 None Full Exam - General Cardiovascular auscultation of heart Overall: regular rate 02/14/2018 None Full Exam - General Cardiovascular auscultation of heart Overall: normal heart sounds 02/14/2018 None Full Exam - General Cardiovascular auscultation of heart S4 (atrial gallop): present 02/14/2018 None Full Exam - General Cardiovascular auscultation of heart Murmur: previously known murmur unchanged 02/14/2018 None Full Exam - General Constitutional general appearance Overall: well nourished 01/10/2018 None Full Exam - General Constitutional general appearance Overall: well developed 01/10/2018 None Full Exam - General Constitutional general appearance Overall: in no acute distress 01/10/2018 None Full Exam - General Neurologic mental status Overall: alert 8 None Full Exam - General Neurologic mental status Overall: oriented 01/10/2018 None Full Exam - General Psychiatric mood and affect Overall: normal mood and affect 01/10/2018 None Full Exam - General Respiratory auscultation Overall: breath sounds clear bilater ally 01/10/2018 None Full Exam - General Cardiovascular auscultation of heart Overall: normal heart sounds 01/10/2018 None Full Exam - General Cardiovascular auscultation of heart S4 (atrial gallop): present 01/10/2018 None Full Exam - General Cardiovascular auscultation of heart Rate: bradycardia 01/10/2018 None Full Exam - General Cardiovascular extremities Overall: no clubbing 01/10/2018 None Full Exam - General Cardiovascular extremities Overall: No edema 01/10/2018 None Full Exam - General Cardiovascular extremities Overall: No cyanosis 01/10/2018 None Full Exam - General Neck inspection of neck Overall: normal size 01/10/2018 None Full Exam - General Neck inspection of neck Overall: no masses 01/10/2018 None Full Exam - General Abdomen abdominal exam Overall: no masses 01/10/2018 None Full Exam - General Abdomen abdominal exam Overall: normal bowel sounds 01/10/2018 None Full Exam - General Abdomen abdominal exam Overall: soft 01/10/2018 None Full Exam - General Abdomen abdominal exam Epigastric: tender to palpation 01/10/2018 None Full Exam - General Constitutional general appearance Overall: well nourished 12/06/2017 None Full Exam - General Constitutional general appearance Overall: well developed 12/06/2017 None Full Exam - General Constitutional general appearance Overall: in no acute distress 12/06/2017 None Full Exam - General Neurologic mental status Overall: alert 8 None Full Exam - General Neurologic mental status Overall: oriented 12/06/2017 None Full Exam - General Psychiatric mood and affect Overall: normal mood and affect 12/06/2017 None Full Exam - General Abdomen abdominal exam Overall: no masses 12/06/2017 None Full Exam - General Abdomen abdominal exam Overall: normal bowel sounds 12/06/2017 None Full Exam - General Abdomen abdominal exam Overall: soft 12/06/2017 None Full Exam - General Abdomen abdominal exam Epigastric: tender to palpation 12/06/2017 None Full Exam - General Respiratory auscultation Overall: breath sounds clear bilater ally 12/06/2017 None Full Exam - General Cardiovascular auscultation of heart Overall: regular rate 12/06/2017 None Full Exam - General Cardiovascular auscultation of heart Overall: normal heart sounds 12/06/2017 None Full Exam - General Cardiovascular auscultation of heart Murmur: previously known murmur unchanged 12/06/2017 None Full Exam - General Cardiovascular auscultation of heart S4 (atrial gallop): present 12/06/2017 None Full Exam - General Cardiovascular extremities Overall: no clubbing 12/06/2017 None Full Exam - General Cardiovascular extremities Overall: No cyanosis 12/06/2017 None Full Exam - General Cardiovascular extremities Edema present: non-pitting 12/06/2017 None Full Exam - General Constitutional general appearance Overall: well nourished 11/22/2017 None Full Exam - General Constitutional general appearance Overall: well developed 11/22/2017 None Full Exam - General Constitutional general appearance Evidence of Distress: anxious 11/22/2017 None Full Exam - General Respiratory auscultation Overall: breath sounds clear bilater ally 11/22/2017 None Full Exam - General Cardiovascular auscultation of heart Overall: regular rate 11/22/2017 None Full Exam - General Cardiovascular auscultation of heart Overall: normal heart sounds 11/22/2017 None Full Exam - General Cardiovascular auscultation of heart Murmur: previously known murmur unchanged 11/22/2017 None Full Exam - General Cardiovascular auscultation of heart S4 (atrial gallop): present 11/22/2017 None Full Exam - General Cardiovascular extremities Overall: no clubbing 11/22/2017 None Full Exam - General Cardiovascular extremities Overall: No edema 11/22/2017 None Full Exam - General Cardiovascular extremities Overall: No cyanosis 11/22/2017 None Full Exam - General Neurologic mental status Overall: oriented 11/22/2017 None Full Exam - General Neurologic mental status Overall: alert 8 None Full Exam - General Psychiatric mood and affect Overall: normal mood and affect 11/22/2017 None Full Exam - General Abdomen abdominal exam Overall: no masses 11/22/2017 None Full Exam - General Abdomen abdominal exam Overall: normal bowel sounds 11/22/2017 None Full Exam - General Abdomen abdominal exam Overall: soft 11/22/2017 None Full Exam - General Abdomen abdominal exam Epigastric: tender to palpation 11/22/2017 None Full Exam - General Constitutional general appearance Evidence of Distress: tearful 11/22/2017 None Full Exam - General Constitutional general appearance Overall: well nourished 10/20/2017 None Full Exam - General Constitutional general appearance Overall: well developed 10/20/2017 None Full Exam - General Constitutional general appearance Overall: in no acute distress 10/20/2017 None Full Exam - General Neurologic mental status Overall: alert 8 None Full Exam - General Neurologic mental status Overall: oriented 10/20/2017 None Full Exam - General Respiratory auscultation Overall: breath sounds clear bilater ally 10/20/2017 None Full Exam - General Cardiovascular auscultation of heart Overall: regular rate 10/20/2017 None Full Exam - General Cardiovascular auscultation of heart Overall: normal heart sounds 10/20/2017 None Full Exam - General Cardiovascular auscultation of heart S4 (atrial gallop): present 10/20/2017 None Full Exam - General Cardiovascular auscultation of heart Murmur: previously known murmur unchanged 10/20/2017 None Full Exam - General Cardiovascular extremities Overall: no clubbing 10/20/2017 None Full Exam - General Cardiovascular extremities Overall: No edema 10/20/2017 None Full Exam - General Cardiovascular extremities Overall: No cyanosis 10/20/2017 None Full Exam - General Constitutional general appearance Overall: well nourished 09/27/2017 None Full Exam - General Constitutional general appearance Overall: in no acute distress 09/27/2017 None Full Exam - General Cardiovascular auscultation of heart Overall: regular rate 09/27/2017 None Full Exam - General Cardiovascular auscultation of heart Overall: no murmurs 09/27/2017 None Full Exam - General Respiratory percussion Overall: benign percussion 09/27/2017 None Full Exam - General Respiratory respiratory effort/rhythm Overall: no retractions 09/27/2017 None Full Exam - General Respiratory respiratory effort/rhythm Overall: normal rate 09/27/2017 None Full Exam - General Respiratory auscultation Overall: breath sounds clear bilater ally 09/27/2017 None Full Exam - General Ears/Nose/Throat otoscopic exam Overall: external auditory canals clear 09/27/2017 None Full Exam - General Ears/Nose/Throat otoscopic exam Overall: tympanic membranes clear 09/27/2017 None Full Exam - General Ears/Nose/Throat oral cavity/pharynx/larynx Oropharynx: a normal exam 09/27/2017 None Full Exam - General Cardiovascular inspection of carotid pulses Overall: strong, bilaterally equal, no bruits 09/27/2017 None Full Exam - General Cardiovascular palpation of heart Overall: apical impulse location normal 09/27/2017 None Full Exam - General Cardiovascular palpation of heart Overall: no heave/lift 09/27/2017 None Full Exam - General Lymphatic neck nodes Overall: anterior cervical chain gulshan ign 09/27/2017 None Full Exam - General Lymphatic neck nodes Overall: posterior cervical chain be nign 09/27/2017 None Full Exam - General Neurologic deep tendon reflexes Overall: deep tendon reflexes intact 09/27/2017 None Full Exam - General Neurologic mental status Overall: alert 8 None Full Exam - General Neurologic mental status Overall: oriented 09/27/2017 None Full Exam - General Neurologic cranial nerves Overall: cranial nerves 1-12 intact 09/27/2017 None Full Exam - General Psychiatric orientation/consciousness Overall: oriented to person, place and time 09/27/2017 None Full Exam - General Psychiatric behavior/psychomotor activity Overall: no tics, normal psychomotor activity 09/27/2017 None Full Exam - General Psychiatric mood and affect Overall: normal mood and affect 09/27/2017 None Full Exam - General Psychiatric appearance Overall: well-groomed, good eye cont act 09/27/2017 None Full Exam - General Psychiatric speech Overall: normal quality, no aphasia 09/27/2017 None Full Exam - General Psychiatric speech Overall: normal quality, quantity, r ate 09/27/2017 None Full Exam - General Psychiatric attention Overall: normal digit recall and num thong repeating 09/27/2017 None Full Exam - General Constitutional general appearance Overall: well nourished 08/16/2017 None Full Exam - General Constitutional general appearance Overall: well developed 08/16/2017 None Full Exam - General Constitutional general appearance Overall: in no acute distress 08/16/2017 None Full Exam - General Musculoskeletal head and neck Cervical Spine: a normal exam 08/16/2017 None Full Exam - General Musculoskeletal head and neck Head: atraumatic 08/16/2017 None Full Exam - General Musculoskeletal head and neck Head: normocephalic 08/16/2017 None Full Exam - General Musculoskeletal head and neck Overall: head atraumatic 08/16/2017 None Full Exam - General Musculoskeletal head and neck Overall: cervical spine benign 08/16/2017 None Full Exam - General Neurologic mental status Overall: alert 8 None Full Exam - General Neurologic mental status Overall: oriented 08/16/2017 None Full Exam - General Psychiatric mood and affect Overall: normal mood and affect 08/16/2017 None Full Exam - General Constitutional general appearance Overall: well nourished 07/07/2017 None Full Exam - General Constitutional general appearance Overall: well developed 07/07/2017 None Full Exam - General Constitutional general appearance Overall: in no acute distress 07/07/2017 None Full Exam - General Neurologic mental status Overall: alert 8 None Full Exam - General Neurologic mental status Overall: oriented 07/07/2017 None Full Exam - General Psychiatric mood and affect Overall: normal mood and affect 07/07/2017 None Full Exam - General Respiratory auscultation Overall: breath sounds clear bilater ally 07/07/2017 None Full Exam - General Cardiovascular auscultation of heart Overall: regular rate 07/07/2017 None Full Exam - General Cardiovascular auscultation of heart Overall: normal heart sounds 07/07/2017 None Full Exam - General Cardiovascular auscultation of heart S4 (atrial gallop): present 07/07/2017 None Full Exam - General Cardiovascular auscultation of heart Murmur: previously known murmur unchanged 07/07/2017 None Full Exam - General Musculoskeletal spine, ribs and pelvis Spine: tender @ cervical spine 07/07/2017 None Full Exam - General Constitutional general appearance Overall: well nourished 05/30/2017 None Full Exam - General Constitutional general appearance Overall: in no acute distress 05/30/2017 None Full Exam - General Cardiovascular auscultation of heart Overall: regular rate 05/30/2017 None Full Exam - General Respiratory percussion Overall: benign percussion 05/30/2017 None Full Exam - General Respiratory respiratory effort/rhythm Overall: no retractions 05/30/2017 None Full Exam - General Respiratory respiratory effort/rhythm Overall: normal rate 05/30/2017 None Full Exam - General Lymphatic other nodes Right auricular chain: tender 05/30/2017 None Full Exam - General Lymphatic other nodes Left supraclavicular: tender 05/30/2017 None Full Exam - General Ears/Nose/Throat otoscopic exam Left tympanic membrane: air- fluid level 05/30/2017 None Full Exam - General Ears/Nose/Throat otoscopic exam Right tympanic membrane: air- fluid level 05/30/2017 None Full Exam - General Neurologic mental status Overall: alert 8 None Full Exam - General Neurologic mental status Overall: oriented 05/30/2017 None Full Exam - General Constitutional general appearance Overall: well nourished 04/18/2017 None Full Exam - General Constitutional general appearance Overall: well developed 04/18/2017 None Full Exam - General Constitutional general appearance Overall: in no acute distress 04/18/2017 None Full Exam - General Neurologic mental status Overall: alert 8 None Full Exam - General Neurologic mental status Overall: oriented 04/18/2017 None Full Exam - General Psychiatric mood and affect Overall: normal mood and affect 04/18/2017 None Full Exam - General Musculoskeletal spine, ribs and pelvis Spine: tender @ lumbar spin e 04/18/2017 None Full Exam - General Abdomen abdominal exam Overall: no masses 04/18/2017 None Full Exam - General Abdomen abdominal exam Overall: normal bowel sounds 04/18/2017 None Full Exam - General Abdomen abdominal exam Overall: soft 04/18/2017 None Full Exam - General Abdomen abdominal exam Left lower quadrant: tender to palpa tion 04/18/2017 None Full Exam - General Constitutional general appearance Overall: well nourished 10/25/2016 None Full Exam - General Constitutional general appearance Overall: well developed 10/25/2016 None Full Exam - General Constitutional general appearance Overall: in no acute distress 10/25/2016 None Full Exam - General Neurologic mental status Overall: alert 7 None Full Exam - General Neurologic mental status Overall: oriented 10/25/2016 None Full Exam - General Psychiatric mood and affect Overall: normal mood and affect 10/25/2016 None Full Exam - General Musculoskeletal gait and station Station: kyphosis 10/25/2016 None Full Exam - General Constitutional general appearance Overall: well nourished 09/20/2016 None Full Exam - General Constitutional general appearance Overall: well developed 09/20/2016 None Full Exam - General Constitutional general appearance Overall: in no acute distress 09/20/2016 None Full Exam - General Constitutional general appearance Assistive Device: cane 09/20/2016 None Full Exam - General Neurologic mental status Overall: alert 7 None Full Exam - General Neurologic mental status Overall: oriented 09/20/2016 None Full Exam - General Psychiatric mood and affect Overall: normal mood and affect 09/20/2016 None Full Exam - General Abdomen abdominal exam Overall: no masses 09/20/2016 None Full Exam - General Abdomen abdominal exam Overall: normal bowel sounds 09/20/2016 None Full Exam - General Abdomen abdominal exam Overall: soft 09/20/2016 None Full Exam - General Abdomen abdominal exam Left lower quadrant: tender to palpa tion 09/20/2016 None Full Exam - General Abdomen abdominal exam Right lower quadrant: tender to palp ation 09/20/2016 None Full Exam - General Musculoskeletal spine, ribs and pelvis Spine: tender @ lumbar spin e 09/20/2016 left Full Exam - General Respiratory auscultation Overall: breath sounds clear bilater ally 09/20/2016 None Full Exam - General Cardiovascular auscultation of heart Overall: regular rate 09/20/2016 None Full Exam - General Cardiovascular auscultation of heart Overall: normal heart sounds 09/20/2016 None Full Exam - General Cardiovascular auscultation of heart S4 (atrial gallop): present 09/20/2016 None Full Exam - General Constitutional general appearance Overall: well nourished 05/12/2016 None Full Exam - General Constitutional general appearance Overall: well developed 05/12/2016 None Full Exam - General Constitutional general appearance Overall: in no acute distress 05/12/2016 None Full Exam - General Neurologic mental status Overall: alert 7 None Full Exam - General Neurologic mental status Overall: oriented 05/12/2016 None Full Exam - General Psychiatric mood and affect Overall: normal mood and affect 05/12/2016 None Full Exam - General Respiratory auscultation Overall: breath sounds clear bilater ally 05/12/2016 None Full Exam - General Cardiovascular auscultation of heart Overall: regular rate 05/12/2016 None Full Exam - General Cardiovascular auscultation of heart Overall: normal heart sounds 05/12/2016 None Full Exam - General Cardiovascular auscultation of heart S4 (atrial gallop): present 05/12/2016 None Full Exam - General Cardiovascular auscultation of heart Murmur: previously known murmur unchanged 05/12/2016 None Full Exam - General Cardiovascular extremities Overall: no clubbing 05/12/2016 None Full Exam - General Cardiovascular extremities Overall: No cyanosis 05/12/2016 None Full Exam - General Cardiovascular extremities Edema present: non-pitting 05/12/2016 None Full Exam - General Neck inspection of neck Overall: normal size 05/12/2016 None Full Exam - General Neck inspection of neck Overall: no masses 05/12/2016 None Full Exam - General Chest/Breast breast and axillae palpation Overall: no masses 05/12/2016 None Full Exam - General Chest/Breast breast and axillae palpation Overall: axillae non- tender 05/12/2016 None Full Exam - General Chest/Breast breast and axillae palpation Overall: no nipple discharge 05/12/2016 None Full Exam - General Chest/Breast breast and axillae palpation Left upper inner quadrant: tender 05/12/2016 None Full Exam - General Chest/Breast breast and axillae palpation Left upper outer quadrant: tender 05/12/2016 None Full Exam - General Chest/Breast breast and axillae palpation Left lower inner quadrant: tender 05/12/2016 None Full Exam - General Chest/Breast breast and axillae palpation Left lower outer quadrant: tender 05/12/2016 None Full Exam - General Chest/Breast breast and axillae palpation Right upper inner quadrant: tender 05/12/2016 None Full Exam - General Chest/Breast breast and axillae palpation Right upper outer quadrant: tender 05/12/2016 None Full Exam - General Chest/Breast breast and axillae palpation Right lower inner quadrant: tender 05/12/2016 None Full Exam - General Chest/Breast breast and axillae palpation Right lower outer quadrant: tender 05/12/2016 None Full Exam - General Musculoskeletal gait and station Station: kyphosis 05/12/2016 None Full Exam - General Musculoskeletal spine, ribs and pelvis Chest wall palpation: chest wall pain 05/12/2016 bilateral costochondral junction Full Exam - General Constitutional general appearance Overall: well nourished 03/18/2016 None Full Exam - General Constitutional general appearance Overall: well developed 03/18/2016 None Full Exam - General Constitutional general appearance Overall: in no acute distress 03/18/2016 None Full Exam - General Constitutional general appearance Nourishment: well nourished 03/18/2016 None Full Exam - General Constitutional general appearance Evidence of Distress: in no acute distress 03/18/2016 None Full Exam - General Eyes conjunctiva/eyelids Overall: conjunctiva clear 03/18/2016 None Full Exam - General Eyes conjunctiva/eyelids Overall: cornea clear 03/18/2016 None Full Exam - General Eyes conjunctiva/eyelids Overall: eyelids normal 03/18/2016 None Full Exam - General Eyes pupils and irises Overall: pupils equal, round, reacti ve to light and accomodation 03/18/2016 None Full Exam - General Ears/Nose/Throat external ear Overall: normal appearance 03/18/2016 None Full Exam - General Ears/Nose/Throat external nose Overall: benign appearance 03/18/2016 None Full Exam - General Ears/Nose/Throat otoscopic exam Overall: external auditory canals clear 03/18/2016 None Full Exam - General Ears/Nose/Throat otoscopic exam Left tympanic membrane: air- fluid level 03/18/2016 None Full Exam - General Ears/Nose/Throat otoscopic exam Right tympanic membrane: air- fluid level 03/18/2016 None Full Exam - General Ears/Nose/Throat internal nose Left nasal cavity: mucosal edema 03/18/2016 None Full Exam - General Ears/Nose/Throat internal nose Right nasal cavity: mucosal edema 03/18/2016 None Full Exam - General Ears/Nose/Throat lips/teeth/gingiva Overall: benign lips 03/18/2016 None Full Exam - General Ears/Nose/Throat lips/teeth/gingiva Overall: normal dentition 03/18/2016 None Full Exam - General Ears/Nose/Throat oral cavity/pharynx/larynx Oropharynx: a normal exam 03/18/2016 None Full Exam - General Respiratory auscultation Overall: breath sounds clear bilater ally 03/18/2016 None Full Exam - General Cardiovascular auscultation of heart Overall: regular rate 03/18/2016 None Full Exam - General Cardiovascular auscultation of heart Overall: normal heart sounds 03/18/2016 None Full Exam - General Cardiovascular auscultation of heart Overall: no murmurs 03/18/2016 None Full Exam - General Integument inspection of skin Overall: no rash, lesions 03/18/2016 None Full Exam - General Psychiatric mood and affect Overall: normal mood and affect 03/18/2016 None Full Exam - General Ears/Nose/Throat otoscopic exam Otorrhea: absent 03/18/2016 None Full Exam - General Ears/Nose/Throat otoscopic exam Perforation: absent 03/18/2016 None Full Exam - General Ears/Nose/Throat internal nose Overall: no sinus tenderness 03/18/2016 None Full Exam - General Ears/Nose/Throat internal nose Overall: no drainage 03/18/2016 None Full Exam - General Ears/Nose/Throat oral cavity/pharynx/larynx Overall: oral mucosa clear 03/18/2016 None Full Exam - General Respiratory respiratory effort/rhythm Overall: no retractions 03/18/2016 None Full Exam - General Respiratory respiratory effort/rhythm Overall: normal rate 03/18/2016 None Full Exam - General Lymphatic neck nodes Overall: shotty lymphadenopathy 03/18/2016 tender but no enlargement palpable Full Exam - General Constitutional general appearance Overall: well nourished 02/06/2016 None Full Exam - General Constitutional general appearance Overall: well developed 02/06/2016 None Full Exam - General Constitutional general appearance Overall: in no acute distress 02/06/2016 None Full Exam - General Ears/Nose/Throat otoscopic exam Overall: external auditory canals clear 02/06/2016 None Full Exam - General Ears/Nose/Throat internal nose Drainage: clear 02/06/2016 None Full Exam - General Ears/Nose/Throat oral cavity/pharynx/larynx Oropharynx: postnasal drainage 02/06/2016 None Full Exam - General Respiratory auscultation Overall: breath sounds clear bilater ally 02/06/2016 None Full Exam - General Cardiovascular auscultation of heart Overall: regular rate 02/06/2016 None Full Exam - General Cardiovascular auscultation of heart Overall: normal heart sounds 02/06/2016 None Full Exam - General Cardiovascular auscultation of heart Overall: no murmurs 02/06/2016 None Full Exam - General Neurologic mental status Overall: alert 6 None Full Exam - General Neurologic mental status Overall: oriented 02/06/2016 None Full Exam - General Psychiatric mood and affect Overall: normal mood and affect 02/06/2016 None Full Exam - General Constitutional general appearance Overall: well nourished 08/26/2015 None Full Exam - General Constitutional general appearance Overall: well developed 08/26/2015 None Full Exam - General Constitutional general appearance Overall: in no acute distress 08/26/2015 None Full Exam - General Neurologic mental status Overall: alert 6 None Full Exam - General Neurologic mental status Overall: oriented 08/26/2015 None Full Exam - General Psychiatric mood and affect Overall: normal mood and affect 08/26/2015 None Full Exam - General Abdomen abdominal exam Overall: no masses 08/26/2015 None Full Exam - General Abdomen abdominal exam Overall: normal bowel sounds 08/26/2015 None Full Exam - General Abdomen abdominal exam Overall: soft 08/26/2015 None Full Exam - General Abdomen abdominal exam Overall: no tenderness 08/26/2015 None Full Exam - General Constitutional general appearance Overall: well nourished 05/21/2015 None Full Exam - General Constitutional general appearance Overall: well developed 05/21/2015 None Full Exam - General Constitutional general appearance Overall: in no acute distress 05/21/2015 None Full Exam - General Neurologic mental status Overall: alert 6 None Full Exam - General Neurologic mental status Overall: oriented 05/21/2015 None Full Exam - General Psychiatric mood and affect Overall: normal mood and affect 05/21/2015 None Full Exam - General Respiratory auscultation Overall: breath sounds clear bilater ally 05/21/2015 None Full Exam - General Cardiovascular auscultation of heart Overall: regular rate 05/21/2015 None Full Exam - General Cardiovascular auscultation of heart Overall: normal heart sounds 05/21/2015 None Full Exam - General Cardiovascular auscultation of heart S3 (ventricular gallop): present 05/21/2015 None Full Exam - General Cardiovascular auscultation of heart Murmur: previously known murmur unchanged 05/21/2015 None Full Exam - General Cardiovascular extremities Overall: no clubbing 05/21/2015 None Full Exam - General Cardiovascular extremities Overall: No cyanosis 05/21/2015 None Full Exam - General Cardiovascular extremities Overall: No edema 05/21/2015 None Full Exam - General Constitutional general appearance Overall: well nourished 02/19/2015 None Full Exam - General Constitutional general appearance Overall: well developed 02/19/2015 None Full Exam - General Constitutional general appearance Overall: in no acute distress 02/19/2015 None Full Exam - General Ears/Nose/Throat otoscopic exam Overall: external auditory canals clear 02/19/2015 None Full Exam - General Ears/Nose/Throat internal nose Drainage: clear 02/19/2015 None Full Exam - General Ears/Nose/Throat oral cavity/pharynx/larynx Oropharynx: postnasal drainage 02/19/2015 None Full Exam - General Respiratory auscultation Overall: breath sounds clear bilater ally 02/19/2015 None Full Exam - General Cardiovascular auscultation of heart Overall: regular rate 02/19/2015 None Full Exam - General Cardiovascular auscultation of heart Overall: normal heart sounds 02/19/2015 None Full Exam - General Cardiovascular auscultation of heart Overall: no murmurs 02/19/2015 None Full Exam - General Neurologic mental status Overall: alert 5 None Full Exam - General Neurologic mental status Overall: oriented 02/19/2015 None Full Exam - General Psychiatric mood and affect Overall: normal mood and affect 02/19/2015 None Full Exam - General Abdomen abdominal exam Overall: no masses 02/19/2015 None Full Exam - General Abdomen abdominal exam Overall: no tenderness 02/19/2015 None Full Exam - General Abdomen abdominal exam Overall: normal bowel sounds 02/19/2015 None Full Exam - General Abdomen abdominal exam Overall: soft 02/19/2015 None Full Exam - General Musculoskeletal gait and station Overall: normal gait 02/19/2015 None Full Exam - General Musculoskeletal gait and station Station: kyphosis 02/19/2015 None Full Exam - General Musculoskeletal spine, ribs and pelvis Spine: tender @ thoracic spine 02/19/2015 None Full Exam - General Musculoskeletal spine, ribs and pelvis Spine: tender @ lumbar spin e 02/19/2015 None Full Exam - General Ears/Nose/Throat otoscopic exam Left tympanic membrane: a normal exam 02/19/2015 None Full Exam - General Ears/Nose/Throat otoscopic exam Right tympanic membrane: a normal exam 02/19/2015 None Full Exam - General Constitutional general appearance Overall: well nourished 11/13/2014 None Full Exam - General Constitutional general appearance Overall: well developed 11/13/2014 None Full Exam - General Constitutional general appearance Evidence of Distress: tearful 11/13/2014 None Full Exam - General Neurologic mental status Overall: alert 5 None Full Exam - General Neurologic mental status Overall: oriented 11/13/2014 None Full Exam - General Psychiatric mood and affect Mood: depressed 11/13/2014 tearful Full Exam - General Respiratory auscultation Overall: breath sounds clear bilater ally 11/13/2014 None Full Exam - General Cardiovascular auscultation of heart Overall: regular rate 11/13/2014 None Full Exam - General Cardiovascular auscultation of heart Overall: normal heart sounds 11/13/2014 None Full Exam - General Cardiovascular auscultation of heart S3 (ventricular gallop): present 11/13/2014 None Full Exam - General Cardiovascular auscultation of heart Murmur: previously known murmur unchanged 11/13/2014 None Full Exam - General Cardiovascular extremities Overall: no clubbing 11/13/2014 None Full Exam - General Cardiovascular extremities Overall: No edema 11/13/2014 None Full Exam - General Cardiovascular extremities Overall: No cyanosis 11/13/2014 None Full Exam - General Constitutional general appearance Overall: well nourished 09/27/2014 None Full Exam - General Constitutional general appearance Overall: well developed 09/27/2014 None Full Exam - General Constitutional general appearance Overall: in no acute distress 09/27/2014 None Full Exam - General Ears/Nose/Throat oral cavity/pharynx/larynx Overall: oral mucosa clear 09/27/2014 None Full Exam - General Ears/Nose/Throat otoscopic exam Left external auditory canal: complete cerumen impaction 09/27/2014 None Full Exam - General Ears/Nose/Throat otoscopic exam Right external auditory canal: complete cerumen impaction 09/27/2014 None Full Exam - General Ears/Nose/Throat otoscopic exam Right tympanic membrane: abnormal light reflex 09/27/2014 None Full Exam - General Ears/Nose/Throat otoscopic exam Right tympanic membrane: air- fluid level 09/27/2014 secondary to cerumen removal Full Exam - General Respiratory auscultation Overall: breath sounds clear bilater ally 09/27/2014 None Full Exam - General Neurologic mental status Overall: alert 5 None Full Exam - General Neurologic mental status Overall: oriented 09/27/2014 None Full Exam - General Psychiatric mood and affect Overall: normal mood and affect 09/27/2014 None Full Exam - General Ears/Nose/Throat otoscopic exam Left tympanic membrane: abnormal light reflex 09/27/2014 None Full Exam - General Cardiovascular auscultation of heart S3 (ventricular gallop): present 09/27/2014 None Full Exam - General Cardiovascular auscultation of heart Overall: regular rate 09/27/2014 None Full Exam - General Constitutional general appearance Overall: well nourished 07/11/2014 None Full Exam - General Constitutional general appearance Overall: well developed 07/11/2014 None Full Exam - General Constitutional general appearance Overall: in no acute distress 07/11/2014 None Full Exam - General Neurologic mental status Overall: oriented 07/11/2014 None Full Exam - General Neurologic mental status Overall: alert 5 None Full Exam - General Psychiatric mood and affect Overall: normal mood and affect 07/11/2014 None Full Exam - General Musculoskeletal right lower extremity Inspection - right lower leg: swelling 07/11/2014 mini mal Full Exam - General Musculoskeletal right lower extremity Palpation - right lower leg: tender 07/11/2014 medial ly Full Exam - General Constitutional general appearance Overall: well nourished 05/23/2014 None Full Exam - General Constitutional general appearance Overall: well developed 05/23/2014 None Full Exam - General Constitutional general appearance Overall: in no acute distress 05/23/2014 None Full Exam - General Neurologic mental status Overall: alert 03/19/201 5 None Full Exam - General Neurologic mental status Overall: oriented 05/23/2014 None Full Exam - General Psychiatric mood and affect Overall: normal mood and affect 05/23/2014 None Full Exam - General Respiratory auscultation Overall: breath sounds clear bilater ally 05/23/2014 None Full Exam - General Cardiovascular auscultation of heart Overall: regular rate 05/23/2014 None Full Exam - General Cardiovascular auscultation of heart Overall: normal heart sounds 05/23/2014 None Full Exam - General Cardiovascular auscultation of heart S3 (ventricular gallop): present 05/23/2014 None Full Exam - General Cardiovascular auscultation of heart Murmur: previously known murmur unchanged 05/23/2014 None Full Exam - General Musculoskeletal spine, ribs and pelvis Spine: tender @ thoracic spine 05/23/2014 None Full Exam - General Constitutional general appearance Overall: well nourished 03/20/2014 None Full Exam - General Constitutional general appearance Overall: well developed 03/20/2014 None Full Exam - General Constitutional general appearance Overall: in no acute distress 03/20/2014 None Full Exam - General Neurologic mental status Overall: alert 5 None Full Exam - General Neurologic mental status Overall: oriented 03/20/2014 None Full Exam - General Psychiatric mood and affect Overall: normal mood and affect 03/20/2014 None Full Exam - General Respiratory auscultation Overall: breath sounds clear bilater ally 03/20/2014 None Full Exam - General Cardiovascular auscultation of heart Overall: regular rate 03/20/2014 None Full Exam - General Cardiovascular auscultation of heart Overall: normal heart sounds 03/20/2014 None Full Exam - General Cardiovascular auscultation of heart S3 (ventricular gallop): present 03/20/2014 None Full Exam - General Cardiovascular auscultation of heart Murmur: previously known murmur unchanged 03/20/2014 None Full Exam - General Cardiovascular extremities Overall: no clubbing 03/20/2014 None Full Exam - General Cardiovascular extremities Overall: No edema 03/20/2014 None Full Exam - General Cardiovascular extremities Overall: No cyanosis 03/20/2014 None Full Exam - General Abdomen abdominal exam Overall: no masses 03/20/2014 None Full Exam - General Abdomen abdominal exam Overall: no tenderness 03/20/2014 None Full Exam - General Abdomen abdominal exam Overall: normal bowel sounds 03/20/2014 None Full Exam - General Abdomen abdominal exam Overall: soft 03/20/2014 None Full Exam - General Integument inspection of skin Location: right arm 03/20/2014 upper posterior with irregular nevus Full Exam - General Ears/Nose/Throat internal nose Turbinates: erythema 10/17/2013 None Full Exam - General Ears/Nose/Throat oral cavity/pharynx/larynx Oropharynx: postnasal drainage 10/17/2013 None Full Exam - General Ears/Nose/Throat oral cavity/pharynx/larynx Oropharynx: erythema 10/17/2013 None Full Exam - General Constitutional general appearance Overall: well nourished 10/17/2013 None Full Exam - General Constitutional general appearance Overall: in no acute distress 10/17/2013 None Full Exam - General Respiratory auscultation Overall: breath sounds clear bilater ally 10/17/2013 None Full Exam - General Cardiovascular auscultation of heart Overall: regular rate 10/17/2013 None Full Exam - General Cardiovascular auscultation of heart Overall: normal heart sounds 10/17/2013 None Full Exam - General Cardiovascular auscultation of heart Overall: no murmurs 10/17/2013 None Full Exam - General Psychiatric orientation/consciousness Overall: oriented to person, place and time 10/17/2013 None Full Exam - General Ears/Nose/Throat otoscopic exam Right tympanic membrane: effusion 10/17/2013 None Full Exam - General Ears/Nose/Throat otoscopic exam Left tympanic membrane: a normal exam 10/17/2013 None Full Exam - General Ears/Nose/Throat otoscopic exam Right tympanic membrane: loss of landmarks 10/17/2013 None Full Exam - General Constitutional general appearance Overall: well nourished 09/24/2013 None Full Exam - General Constitutional general appearance Overall: well developed 09/24/2013 None Full Exam - General Constitutional general appearance Overall: in no acute distress 09/24/2013 None Full Exam - General Neurologic mental status Overall: alert 4 None Full Exam - General Neurologic mental status Overall: oriented 09/24/2013 None Full Exam - General Psychiatric mood and affect Overall: normal mood and affect 09/24/2013 None Full Exam - General Respiratory auscultation Overall: breath sounds clear bilater ally 09/24/2013 None Full Exam - General Cardiovascular auscultation of heart Overall: regular rate 09/24/2013 None Full Exam - General Cardiovascular auscultation of heart Overall: normal heart sounds 09/24/2013 None Full Exam - General Cardiovascular auscultation of heart S3 (ventricular gallop): present 09/24/2013 None Full Exam - General Cardiovascular auscultation of heart Murmur: previously known murmur unchanged 09/24/2013 None Full Exam - General Cardiovascular extremities Overall: no clubbing 09/24/2013 None Full Exam - General Cardiovascular extremities Overall: No cyanosis 09/24/2013 None Full Exam - General Cardiovascular extremities Edema present: non-pitting 09/24/2013 None Full Exam - General Constitutional general appearance Overall: well nourished 05/31/2013 None Full Exam - General Constitutional general appearance Overall: well developed 05/31/2013 None Full Exam - General Constitutional general appearance Overall: in no acute distress 05/31/2013 None Full Exam - General Neurologic mental status Overall: alert 4 None Full Exam - General Neurologic mental status Overall: oriented 05/31/2013 None Full Exam - General Psychiatric mood and affect Overall: normal mood and affect 05/31/2013 None Full Exam - General Ears/Nose/Throat otoscopic exam Overall: external auditory canals clear 05/31/2013 None Full Exam - General Ears/Nose/Throat otoscopic exam Overall: tympanic membranes clear 05/31/2013 None Full Exam - General Ears/Nose/Throat internal nose Turbinates: hypertrophy 05/31/2013 None Full Exam - General Ears/Nose/Throat oral cavity/pharynx/larynx Overall: oral mucosa clear 05/31/2013 None Full Exam - General Respiratory auscultation Overall: breath sounds clear bilater ally 05/31/2013 None Full Exam - General Cardiovascular auscultation of heart Overall: regular rate 05/31/2013 None Full Exam - General Cardiovascular auscultation of heart Overall: normal heart sounds 05/31/2013 None Full Exam - General Cardiovascular auscultation of heart S3 (ventricular gallop): present 05/31/2013 None Full Exam - General Cardiovascular auscultation of heart Murmur: previously known murmur unchanged 05/31/2013 None Full Exam - General Constitutional general appearance Nourishment: obese 03/26/2013 None Full Exam - General Constitutional general appearance Overall: well developed 03/26/2013 None Full Exam - General Constitutional general appearance Overall: in no acute distress 03/26/2013 None Full Exam - General Ears/Nose/Throat external ear Overall: normal appearance 03/26/2013 None Full Exam - General Ears/Nose/Throat otoscopic exam Overall: tympanic membranes clear 03/26/2013 None Full Exam - General Ears/Nose/Throat otoscopic exam Overall: external auditory canals clear 03/26/2013 None Full Exam - General Ears/Nose/Throat otoscopic exam Right external auditory canal: partial cerumen occlusion 03/26/2013 None Full Exam - General Ears/Nose/Throat otoscopic exam Right tympanic membrane: not visualized 03/26/2013 None Full Exam - General Ears/Nose/Throat otoscopic exam Left tympanic membrane: a normal exam 03/26/2013 None Full Exam - General Respiratory auscultation Overall: breath sounds clear bilater ally 03/26/2013 None Full Exam - General Cardiovascular auscultation of heart Overall: normal heart sounds 03/26/2013 None Full Exam - General Cardiovascular auscultation of heart Overall: regular rate 03/26/2013 None Full Exam - General Psychiatric orientation/consciousness Overall: oriented to person, place and time 03/26/2013 None Full Exam - General Respiratory auscultation Overall: breath sounds clear bilater ally 12/19/2012 None Full Exam - General Constitutional general appearance Overall: well developed 12/19/2012 None Full Exam - General Constitutional general appearance Overall: in no acute distress 12/19/2012 None Full Exam - General Constitutional general appearance Nourishment: obese 12/19/2012 None Full Exam - General Ears/Nose/Throat otoscopic exam Left tympanic membrane: not visualized 12/19/2012 due to cerumen Full Exam - General Ears/Nose/Throat otoscopic exam Right tympanic membrane: abnormal light reflex 12/19/2012 None Full Exam - General Cardiovascular auscultation of heart Overall: regular rate 12/19/2012 None Full Exam - General Cardiovascular auscultation of heart Overall: normal heart sounds 12/19/2012 None Full Exam - General Psychiatric orientation/consciousness Overall: oriented to person, place and time 12/19/2012 None Full Exam - General Constitutional general appearance Overall: well nourished 11/27/2012 None Full Exam - General Constitutional general appearance Overall: well developed 11/27/2012 None Full Exam - General Constitutional general appearance Overall: in no acute distress 11/27/2012 None Full Exam - General Neurologic mental status Overall: alert 3 None Full Exam - General Neurologic mental status Overall: oriented 11/27/2012 None Full Exam - General Psychiatric mood and affect Overall: normal mood and affect 11/27/2012 None Full Exam - General Respiratory auscultation Overall: breath sounds clear bilater ally 11/27/2012 None Full Exam - General Cardiovascular auscultation of heart Overall: regular rate 11/27/2012 None Full Exam - General Cardiovascular auscultation of heart Overall: normal heart sounds 11/27/2012 None Full Exam - General Cardiovascular auscultation of heart S3 (ventricular gallop): present 11/27/2012 None Full Exam - General Cardiovascular extremities Overall: no clubbing 11/27/2012 None Full Exam - General Cardiovascular extremities Overall: No cyanosis 11/27/2012 None Full Exam - General Cardiovascular auscultation of heart Murmur: previously known murmur unchanged 11/27/2012 None Full Exam - General Constitutional general appearance Overall: well nourished 10/04/2012 None Full Exam - General Constitutional general appearance Overall: well developed 10/04/2012 None Full Exam - General Constitutional general appearance Overall: in no acute distress 10/04/2012 None Full Exam - General Neurologic mental status Overall: alert 3 None Full Exam - General Neurologic mental status Overall: oriented 10/04/2012 None Full Exam - General Psychiatric mood and affect Overall: normal mood and affect 10/04/2012 None Full Exam - General Ears/Nose/Throat otoscopic exam Overall: external auditory canals clear 10/04/2012 None Full Exam - General Ears/Nose/Throat otoscopic exam Left tympanic membrane: air- fluid level 10/04/2012 None Full Exam - General Ears/Nose/Throat otoscopic exam Right tympanic membrane: air- fluid level 10/04/2012 None Full Exam - General Ears/Nose/Throat internal nose Turbinates: hypertrophy 10/04/2012 None Full Exam - General Ears/Nose/Throat internal nose Turbinates: erythema 10/04/2012 None Full Exam - General Ears/Nose/Throat oral cavity/pharynx/larynx Oropharynx: postnasal drainage 10/04/2012 None Full Exam - General Respiratory auscultation Overall: breath sounds clear bilater ally 10/04/2012 None Full Exam - General Cardiovascular auscultation of heart Overall: regular rate 10/04/2012 None Full Exam - General Cardiovascular auscultation of heart Overall: normal heart sounds 10/04/2012 None Full Exam - General Cardiovascular auscultation of heart S3 (ventricular gallop): present 10/04/2012 None Full Exam - General Cardiovascular auscultation of heart Murmur: previously known murmur unchanged 10/04/2012 None Full Exam - General Constitutional general appearance Overall: well nourished 07/27/2012 None Full Exam - General Constitutional general appearance Overall: well developed 07/27/2012 None Full Exam - General Constitutional general appearance Overall: in no acute distress 07/27/2012 None Full Exam - General Neurologic mental status Overall: alert 3 None Full Exam - General Neurologic mental status Overall: oriented 07/27/2012 None Full Exam - General Psychiatric mood and affect Overall: normal mood and affect 07/27/2012 None Full Exam - General Ears/Nose/Throat otoscopic exam Overall: external auditory canals clear 07/27/2012 None Full Exam - General Ears/Nose/Throat otoscopic exam Overall: tympanic membranes clear 07/27/2012 None Full Exam - General Ears/Nose/Throat internal nose Overall: bilateral nasal cavities clear 07/27/2012 None Full Exam - General Ears/Nose/Throat oral cavity/pharynx/larynx Overall: oral mucosa clear 07/27/2012 None Full Exam - General Constitutional general appearance Overall: well nourished 07/14/2012 None Full Exam - General Constitutional general appearance Overall: well developed 07/14/2012 None Full Exam - General Constitutional general appearance Overall: in no acute distress 07/14/2012 None Full Exam - General Ears/Nose/Throat otoscopic exam Overall: external auditory canals clear 07/14/2012 no tragal or pinna pain with movement Full Exam - General Ears/Nose/Throat otoscopic exam Overall: tympanic membranes clear 07/14/2012 right TM has perforation (appears old?) at 6:00 position Full Exam - General Ears/Nose/Throat otoscopic exam Perforation: right 07/14/2012 None Full Exam - General Ears/Nose/Throat internal nose Overall: bilateral nasal cavities clear 07/14/2012 None Full Exam - General Ears/Nose/Throat internal nose Overall: turbinates benign 07/14/2012 None Full Exam - General Ears/Nose/Throat internal nose Overall: no drainage 07/14/2012 None Full Exam - General Ears/Nose/Throat internal nose Sinus tenderness: left maxillary 07/14/2012 marked Full Exam - General Ears/Nose/Throat internal nose Sinus tenderness: right maxillary 07/14/2012 marked Full Exam - General Ears/Nose/Throat internal nose Sinus tenderness: right frontal 07/14/2012 None Full Exam - General Ears/Nose/Throat internal nose Sinus tenderness: left frontal 07/14/2012 None Full Exam - General Ears/Nose/Throat oral cavity/pharynx/larynx Overall: oropharyngeal mucosa clear 07/14/2012 None Full Exam - General Respiratory auscultation Overall: breath sounds clear bilater ally 07/14/2012 None Full Exam - General Cardiovascular auscultation of heart Overall: regular rate 07/14/2012 None Full Exam - General Cardiovascular auscultation of heart Overall: normal heart sounds 07/14/2012 None Full Exam - General Cardiovascular auscultation of heart Overall: no murmurs 07/14/2012 None Full Exam - General Constitutional general appearance Overall: well nourished 06/08/2012 None Full Exam - General Constitutional general appearance Overall: well developed 06/08/2012 None Full Exam - General Constitutional general appearance Overall: in no acute distress 06/08/2012 None Full Exam - General Neurologic mental status Overall: alert 3 None Full Exam - General Neurologic mental status Overall: oriented 06/08/2012 None Full Exam - General Psychiatric mood and affect Overall: normal mood and affect 06/08/2012 None Full Exam - General Chest/Breast breast and axillae palpation Left lower inner quadrant: tender 06/08/2012 None Full Exam - General Chest/Breast breast and axillae palpation Left lower inner quadrant: no mass 06/08/2012 None Full Exam - General Chest/Breast breast and axillae palpation Left upper outer quadrant: no mass 06/08/2012 None Full Exam - General Chest/Breast breast and axillae palpation Left upper inner quadrant: no mass 06/08/2012 None Full Exam - General Chest/Breast breast and axillae palpation Left lower outer quadrant: no mass 06/08/2012 None Full Exam - General Chest/Breast breast and axillae palpation Right lower inner quadrant: tender 06/08/2012 None Full Exam - General Chest/Breast breast and axillae palpation Right upper inner quadrant: no mass 06/08/2012 None Full Exam - General Chest/Breast breast and axillae palpation Right upper outer quadrant: no mass 06/08/2012 None Full Exam - General Chest/Breast breast and axillae palpation Right lower outer quadrant: no mass 06/08/2012 None Full Exam - General Constitutional general appearance Overall: well nourished 02/22/2012 None Full Exam - General Constitutional general appearance Overall: well developed 02/22/2012 None Full Exam - General Constitutional general appearance Overall: in no acute distress 02/22/2012 None Full Exam - General Neurologic mental status Overall: alert 2 None Full Exam - General Neurologic mental status Overall: oriented 02/22/2012 None Full Exam - General Psychiatric mood and affect Overall: normal mood and affect 02/22/2012 None Full Exam - General Respiratory auscultation Overall: breath sounds clear bilater ally 02/22/2012 None Full Exam - General Cardiovascular auscultation of heart Overall: regular rate 02/22/2012 None Full Exam - General Cardiovascular auscultation of heart Overall: normal heart sounds 02/22/2012 None Full Exam - General Cardiovascular auscultation of heart S3 (ventricular gallop): present 02/22/2012 None Full Exam - General Cardiovascular auscultation of heart Murmur: previously known murmur unchanged 02/22/2012 None Full Exam - General Ears/Nose/Throat otoscopic exam Left external auditory canal: complete cerumen impaction 02/22/2012 None Full Exam - General Ears/Nose/Throat otoscopic exam Right external auditory canal: partial cerumen occlusion 02/22/2012 None Full Exam - General Ears/Nose/Throat otoscopic exam Left tympanic membrane: abnormal light reflex 02/22/2012 None Full Exam - General Ears/Nose/Throat otoscopic exam Right tympanic membrane: abnormal light reflex 02/22/2012 None Full Exam - General Ears/Nose/Throat internal nose Turbinates: hypertrophy 02/22/2012 None Full Exam - General Ears/Nose/Throat oral cavity/pharynx/larynx Overall: oral mucosa clear 02/22/2012 None Full Exam - General Abdomen abdominal exam Overall: no masses 02/22/2012 None Full Exam - General Abdomen abdominal exam Overall: normal bowel sounds 02/22/2012 None Full Exam - General Abdomen abdominal exam Overall: soft 02/22/2012 None Full Exam - General Abdomen abdominal exam Right upper quadrant: tender to palp ation 02/22/2012 None Full Exam - General Abdomen abdominal exam Epigastric: tender to palpation 02/22/2012 None Full Exam - General Constitutional general appearance Overall: well nourished 12/28/2011 None Full Exam - General Constitutional general appearance Overall: well developed 12/28/2011 None Full Exam - General Constitutional general appearance Overall: in no acute distress 12/28/2011 None Full Exam - General Neurologic mental status Overall: alert 2 None Full Exam - General Neurologic mental status Overall: oriented 12/28/2011 None Full Exam - General Psychiatric mood and affect Overall: normal mood and affect 12/28/2011 None Full Exam - General Abdomen abdominal exam Overall: no masses 12/28/2011 None Full Exam - General Abdomen abdominal exam Overall: normal bowel sounds 12/28/2011 None Full Exam - General Abdomen abdominal exam Overall: soft 12/28/2011 None Full Exam - General Abdomen abdominal exam Epigastric: tender to palpation 12/28/2011 None Full Exam - General Abdomen abdominal exam Left upper quadrant: tender to palpa tion 12/28/2011 None Full Exam - General Abdomen abdominal exam Left lower quadrant: tender to palpa tion 12/28/2011 None Full Exam - General Abdomen abdominal exam Right upper quadrant: non-tender to palpation 12/28/2011 None Full Exam - General Abdomen abdominal exam Right lower quadrant: tender to palp ation 12/28/2011 None Full Exam - General Constitutional general appearance Overall: well nourished 09/21/2011 None Full Exam - General Constitutional general appearance Overall: well developed 09/21/2011 None Full Exam - General Constitutional general appearance Evidence of Distress: anxious 09/21/2011 None Full Exam - General Respiratory auscultation Overall: breath sounds clear bilater ally 09/21/2011 None Full Exam - General Cardiovascular auscultation of heart Overall: regular rate 09/21/2011 None Full Exam - General Cardiovascular auscultation of heart Overall: normal heart sounds 09/21/2011 None Full Exam - General Cardiovascular auscultation of heart Murmur: previously known murmur unchanged 09/21/2011 None Full Exam - General Cardiovascular auscultation of heart S3 (ventricular gallop): present 09/21/2011 None Full Exam - General Neurologic mental status Overall: alert 2 None Full Exam - General Neurologic mental status Overall: oriented 09/21/2011 None Full Exam - General Psychiatric mood and affect Overall: normal mood and affect 09/21/2011 None Full Exam - General Constitutional general appearance Overall: well nourished 09/13/2011 None Full Exam - General Constitutional general appearance Overall: well developed 09/13/2011 None Full Exam - General Constitutional general appearance Overall: in no acute distress 09/13/2011 None Full Exam - General Neurologic mental status Overall: alert 2 None Full Exam - General Neurologic mental status Overall: oriented 09/13/2011 None Full Exam - General Psychiatric mood and affect Overall: normal mood and affect 09/13/2011 None Full Exam - General Respiratory auscultation Overall: breath sounds clear bilater ally 09/13/2011 None Full Exam - General Cardiovascular auscultation of heart Overall: regular rate 09/13/2011 None Full Exam - General Cardiovascular auscultation of heart Overall: normal heart sounds 09/13/2011 None Full Exam - General Cardiovascular auscultation of heart S3 (ventricular gallop): present 09/13/2011 None Full Exam - General Cardiovascular auscultation of heart Murmur: previously known murmur unchanged 09/13/2011 None Full Exam - General Cardiovascular extremities Overall: no clubbing 09/13/2011 None Full Exam - General Cardiovascular extremities Overall: No edema 09/13/2011 None Full Exam - General Cardiovascular extremities Overall: No cyanosis 09/13/2011 None Full Exam - General Constitutional general appearance Overall: well nourished 08/16/2011 None Full Exam - General Constitutional general appearance Overall: well developed 08/16/2011 None Full Exam - General Constitutional general appearance Overall: in no acute distress 08/16/2011 None Full Exam - General Neurologic mental status Overall: alert 2 None Full Exam - General Neurologic mental status Overall: oriented 08/16/2011 None Full Exam - General Psychiatric mood and affect Overall: normal mood and affect 08/16/2011 None Full Exam - General Musculoskeletal spine, ribs and pelvis Spine: tender @ lumbar spin e 08/16/2011 None Full Exam - General Constitutional general appearance Overall: well nourished 08/03/2011 None Full Exam - General Constitutional general appearance Overall: well developed 08/03/2011 None Full Exam - General Constitutional general appearance Overall: in no acute distress 08/03/2011 None Full Exam - General Neurologic mental status Overall: alert 2 None Full Exam - General Psychiatric mood and affect Overall: normal mood and affect 08/03/2011 None Full Exam - General Musculoskeletal spine, ribs and pelvis Sacroiliac joints: tender right sacroiliac joint 08/03/2011 None Full Exam - General Musculoskeletal spine, ribs and pelvis Spine: tender @ thoracic spine 08/03/2011 None Full Exam - General Musculoskeletal spine, ribs and pelvis Spine: tender @ lumbar spin e 08/03/2011 None Full Exam - General Constitutional general appearance Overall: well nourished 07/26/2011 None Full Exam - General Constitutional general appearance Overall: well developed 07/26/2011 None Full Exam - General Constitutional general appearance Overall: in no acute distress 07/26/2011 None Full Exam - General Musculoskeletal spine, ribs and pelvis Spine: tender @ thoracic spine 07/26/2011 None Full Exam - General Neurologic mental status Overall: alert 2 None Full Exam - General Neurologic mental status Overall: oriented 07/26/2011 None Full Exam - General Psychiatric mood and affect Overall: normal mood and affect 07/26/2011 None Full Exam - General Constitutional general appearance Overall: well nourished 06/28/2011 None Full Exam - General Constitutional general appearance Overall: well developed 06/28/2011 None Full Exam - General Constitutional general appearance Overall: in no acute distress 06/28/2011 None Full Exam - General Neurologic mental status Overall: alert 2 None Full Exam - General Neurologic mental status Overall: oriented 06/28/2011 None Full Exam - General Psychiatric mood and affect Overall: normal mood and affect 06/28/2011 None Full Exam - General Musculoskeletal spine, ribs and pelvis Spine: tender @ thoracic spine 06/28/2011 None Full Exam - General Musculoskeletal spine, ribs and pelvis Spine: tender @ lumbar spin e 06/28/2011 None Full Exam - General Musculoskeletal gait and station Overall: normal station 06/28/2011 None Full Exam - General Musculoskeletal gait and station Gait: antalgic 06/28/2011 None Full Exam - General Musculoskeletal spine, ribs and pelvis Sacroiliac joints: tender right sacroiliac joint 06/28/2011 None Full Exam - General Musculoskeletal spine, ribs and pelvis Sacroiliac joints: tender left sacroiliac joint 06/28/2011 None Full Exam - General Constitutional general appearance Overall: in no acute distress 03/31/2011 None Full Exam - General Constitutional general appearance Overall: well developed 03/31/2011 None Full Exam - General Constitutional general appearance Overall: well nourished 03/31/2011 None Full Exam - General Neurologic mental status Overall: alert 2 None Full Exam - General Neurologic mental status Overall: oriented 03/31/2011 None Full Exam - General Psychiatric mood and affect Overall: normal mood and affect 03/31/2011 None Full Exam - General Respiratory auscultation Right upper lung field: a normal exa m 03/31/2011 None Full Exam - General Respiratory auscultation Right middle lung field: a normal ex am 03/31/2011 None Full Exam - General Respiratory auscultation Right lower lung field: a normal exa m 03/31/2011 None Full Exam - General Respiratory auscultation Left lower lung field: a normal exam 03/31/2011 None Full Exam - General Respiratory auscultation Overall: breath sounds clear bilater ally 03/31/2011 None Full Exam - General Respiratory auscultation Left upper lung field: a normal exam 03/31/2011 None Full Exam - General Respiratory auscultation Diffuse: a normal exam 03/31/2011 None Full Exam - General Cardiovascular auscultation of heart Overall: no murmurs 03/31/2011 None Full Exam - General Cardiovascular auscultation of heart Overall: regular rate 03/31/2011 None Full Exam - General Cardiovascular auscultation of heart Overall: normal heart sounds 03/31/2011 None Full Exam - General Cardiovascular auscultation of heart S1: a normal exam 03/31/2011 None Full Exam - General Cardiovascular auscultation of heart S2: a normal exam 03/31/2011 None Full Exam - General Cardiovascular auscultation of heart Rhythm: regular rhythm 03/31/2011 None Full Exam - General Cardiovascular auscultation of heart Rate: regular rate 03/31/2011 None Full Exam - General Cardiovascular auscultation of heart S3 (ventricular gallop): present 03/31/2011 None Full Exam - General Cardiovascular auscultation of heart Murmur: previously known murmur unchanged 03/31/2011 None Full Exam - General Cardiovascular extremities Overall: no clubbing 03/31/2011 None Full Exam - General Cardiovascular extremities Overall: No edema 03/31/2011 None Full Exam - General Cardiovascular extremities Overall: No cyanosis 03/31/2011 None Full Exam - General Constitutional general appearance Overall: in no acute distress 02/11/2011 None Full Exam - General Constitutional general appearance Overall: well developed 02/11/2011 None Full Exam - General Constitutional general appearance Overall: well nourished 02/11/2011 None Full Exam - General Neurologic mental status Overall: alert 1 None Full Exam - General Neurologic mental status Overall: oriented 02/11/2011 None Full Exam - General Psychiatric mood and affect Overall: normal mood and affect 02/11/2011 None Full Exam - General Cardiovascular auscultation of heart Overall: no murmurs 02/11/2011 None Full Exam - General Cardiovascular auscultation of heart Overall: regular rate 02/11/2011 None Full Exam - General Cardiovascular auscultation of heart Overall: normal heart sounds 02/11/2011 None Full Exam - General Cardiovascular auscultation of heart S1: a normal exam 02/11/2011 None Full Exam - General Cardiovascular auscultation of heart S2: a normal exam 02/11/2011 None Full Exam - General Cardiovascular auscultation of heart Rhythm: regular rhythm 02/11/2011 None Full Exam - General Cardiovascular auscultation of heart Rate: regular rate 02/11/2011 None Full Exam - General Cardiovascular auscultation of heart S3 (ventricular gallop): present 02/11/2011 None Full Exam - General Respiratory auscultation Right upper lung field: a normal exa m 02/11/2011 None Full Exam - General Respiratory auscultation Right middle lung field: a normal ex am 02/11/2011 None Full Exam - General Respiratory auscultation Right lower lung field: a normal exa m 02/11/2011 None Full Exam - General Respiratory auscultation Left lower lung field: a normal exam 02/11/2011 None Full Exam - General Respiratory auscultation Overall: breath sounds clear bilater ally 02/11/2011 None Full Exam - General Respiratory auscultation Left upper lung field: a normal exam 02/11/2011 None Full Exam - General Respiratory auscultation Diffuse: a normal exam 02/11/2011 None Full Exam - General Ears/Nose/Throat otoscopic exam Overall: tympanic membranes clear 02/11/2011 None Full Exam - General Ears/Nose/Throat internal nose Turbinates: hypertrophy 02/11/2011 None Full Exam - General Ears/Nose/Throat internal nose Turbinates: erythema 02/11/2011 None Full Exam - General Ears/Nose/Throat oral cavity/pharynx/larynx Overall: oral mucosa clear 02/11/2011 None Full Exam - General Neck inspection of neck Overall: normal size 02/11/2011 None Full Exam - General Neck inspection of neck Overall: no masses 02/11/2011 None Full Exam - General Ears/Nose/Throat otoscopic exam Left external auditory canal: complete cerumen impaction 02/11/2011 None Full Exam - General Ears/Nose/Throat otoscopic exam Right external auditory canal: complete cerumen impaction 02/11/2011 None Full Exam - General Constitutional general appearance Overall: in no acute distress 10/15/2010 None Full Exam - General Constitutional general appearance Overall: well developed 10/15/2010 None Full Exam - General Constitutional general appearance Overall: well nourished 10/15/2010 None Full Exam - General Neurologic mental status Overall: alert 1 None Full Exam - General Neurologic mental status Overall: oriented 10/15/2010 None Full Exam - General Psychiatric mood and affect Overall: normal mood and affect 10/15/2010 None Full Exam - General Respiratory auscultation Right upper lung field: a normal exa m 10/15/2010 None Full Exam - General Respiratory auscultation Right middle lung field: a normal ex am 10/15/2010 None Full Exam - General Respiratory auscultation Right lower lung field: a normal exa m 10/15/2010 None Full Exam - General Respiratory auscultation Left lower lung field: a normal exam 10/15/2010 None Full Exam - General Respiratory auscultation Overall: breath sounds clear bilater ally 10/15/2010 None Full Exam - General Respiratory auscultation Left upper lung field: a normal exam 10/15/2010 None Full Exam - General Respiratory auscultation Diffuse: a normal exam 10/15/2010 None Full Exam - General Cardiovascular auscultation of heart Overall: no murmurs 10/15/2010 None Full Exam - General Cardiovascular auscultation of heart Overall: regular rate 10/15/2010 None Full Exam - General Cardiovascular auscultation of heart Overall: normal heart sounds 10/15/2010 None Full Exam - General Cardiovascular auscultation of heart S1: a normal exam 10/15/2010 None Full Exam - General Cardiovascular auscultation of heart S2: a normal exam 10/15/2010 None Full Exam - General Cardiovascular auscultation of heart Rhythm: regular rhythm 10/15/2010 None Full Exam - General Cardiovascular auscultation of heart Rate: regular rate 10/15/2010 None Full Exam - General Cardiovascular auscultation of heart S3 (ventricular gallop): present 10/15/2010 None Full Exam - General Abdomen abdominal exam Overall: no masses 10/15/2010 None Full Exam - General Abdomen abdominal exam Overall: normal bowel sounds 10/15/2010 None Full Exam - General Abdomen abdominal exam Overall: soft 10/15/2010 None Full Exam - General Abdomen abdominal exam Epigastric: tender to palpation 10/15/2010 None Full Exam - General Constitutional general appearance Overall: in no acute distress 09/29/2010 None Full Exam - General Constitutional general appearance Overall: well developed 09/29/2010 None Full Exam - General Constitutional general appearance Overall: well nourished 09/29/2010 None Full Exam - General Neurologic mental status Overall: alert 1 None Full Exam - General Neurologic mental status Overall: oriented 09/29/2010 None Full Exam - General Psychiatric mood and affect Overall: normal mood and affect 09/29/2010 None Full Exam - General Abdomen abdominal exam Overall: no masses 09/29/2010 None Full Exam - General Abdomen abdominal exam Overall: no tenderness 09/29/2010 None Full Exam - General Abdomen abdominal exam Overall: normal bowel sounds 09/29/2010 None Full Exam - General Abdomen abdominal exam Overall: soft 09/29/2010 None Full Exam - General Respiratory auscultation Right upper lung field: a normal exa m 09/29/2010 None Full Exam - General Respiratory auscultation Right middle lung field: a normal ex am 09/29/2010 None Full Exam - General Respiratory auscultation Right lower lung field: a normal exa m 09/29/2010 None Full Exam - General Respiratory auscultation Left lower lung field: a normal exam 09/29/2010 None Full Exam - General Respiratory auscultation Overall: breath sounds clear bilater ally 09/29/2010 None Full Exam - General Respiratory auscultation Left upper lung field: a normal exam 09/29/2010 None Full Exam - General Respiratory auscultation Diffuse: a normal exam 09/29/2010 None Full Exam - General Cardiovascular auscultation of heart Overall: no murmurs 09/29/2010 None Full Exam - General Cardiovascular auscultation of heart Overall: regular rate 09/29/2010 None Full Exam - General Cardiovascular auscultation of heart Overall: normal heart sounds 09/29/2010 None Full Exam - General Cardiovascular auscultation of heart S1: a normal exam 09/29/2010 None Full Exam - General Cardiovascular auscultation of heart S2: a normal exam 09/29/2010 None Full Exam - General Cardiovascular auscultation of heart Rhythm: regular rhythm 09/29/2010 None Full Exam - General Cardiovascular auscultation of heart Rate: regular rate 09/29/2010 None Full Exam - General Cardiovascular auscultation of heart S3 (ventricular gallop): present 09/29/2010 None Full Exam - General Cardiovascular auscultation of heart Murmur: previously known murmur unchanged 09/29/2010 None Full Exam - General Cardiovascular extremities Overall: no clubbing 09/29/2010 None Full Exam - General Cardiovascular extremities Overall: No edema 09/29/2010 None Full Exam - General Cardiovascular extremities Overall: No cyanosis 09/29/2010 None Full Exam - General Cardiovascular auscultation of heart Overall: no murmurs 07/02/2010 None Full Exam - General Cardiovascular auscultation of heart Rate: regular rate 07/02/2010 None Full Exam - General Cardiovascular auscultation of heart Rhythm: regular rhythm 07/02/2010 None Full Exam - General Cardiovascular auscultation of heart S1: a normal exam 07/02/2010 None Full Exam - General Cardiovascular auscultation of heart S2: a normal exam 07/02/2010 None Full Exam - General Cardiovascular auscultation of heart S3 (ventricular gallop): present 07/02/2010 None Full Exam - General Ears/Nose/Throat otoscopic exam Overall: external auditory canals clear 07/02/2010 None Full Exam - General Ears/Nose/Throat internal nose Turbinates: hypertrophy 07/02/2010 None Full Exam - General Ears/Nose/Throat internal nose Turbinates: erythema 07/02/2010 None Full Exam - General Ears/Nose/Throat oral cavity/pharynx/larynx Overall: oral mucosa clear 07/02/2010 None Full Exam - General Constitutional general appearance Overall: well nourished 07/02/2010 None Full Exam - General Constitutional general appearance Overall: well developed 07/02/2010 None Full Exam - General Constitutional general appearance Overall: in no acute distress 07/02/2010 None Full Exam - General Neurologic mental status Overall: alert 1 None Full Exam - General Neurologic mental status Overall: oriented 07/02/2010 None Full Exam - General Psychiatric mood and affect Overall: normal mood and affect 07/02/2010 None Full Exam - General Respiratory auscultation Overall: breath sounds clear bilater ally 07/02/2010 None Full Exam - General Respiratory auscultation Diffuse: a normal exam 07/02/2010 None Full Exam - General Respiratory auscultation Left upper lung field: a normal exam 07/02/2010 None Full Exam - General Respiratory auscultation Left lower lung field: a normal exam 07/02/2010 None Full Exam - General Respiratory auscultation Right upper lung field: a normal exa m 07/02/2010 None Full Exam - General Respiratory auscultation Right middle lung field: a normal ex am 07/02/2010 None Full Exam - General Respiratory auscultation Right lower lung field: a normal exa m 07/02/2010 None Full Exam - General Cardiovascular auscultation of heart Overall: regular rate 07/02/2010 None Full Exam - General Cardiovascular auscultation of heart Overall: normal heart sounds 07/02/2010 None Full Exam - General Constitutional general appearance Overall: well nourished 04/06/2010 None Full Exam - General Constitutional general appearance Overall: well developed 04/06/2010 None Full Exam - General Constitutional general appearance Overall: in no acute distress 04/06/2010 None Full Exam - General Neurologic mental status Overall: alert 1 None Full Exam - General Neurologic mental status Overall: oriented 04/06/2010 None Full Exam - General Psychiatric mood and affect Overall: normal mood and affect 04/06/2010 None Full Exam - General Musculoskeletal spine, ribs and pelvis Spine: tender @ lumbar spin e 04/06/2010 None Full Exam - General Musculoskeletal spine, ribs and pelvis Sacroiliac joints: tender right sacroiliac joint 04/06/2010 None Full Exam - General Musculoskeletal spine, ribs and pelvis Sacroiliac joints: tender right sacroiliac joint 04/01/2010 None Full Exam - General Musculoskeletal spine, ribs and pelvis Sacroiliac joints: tender left sacroiliac joint 04/01/2010 None Full Exam - General Respiratory auscultation Overall: breath sounds clear bilater ally 04/01/2010 None Full Exam - General Respiratory auscultation Diffuse: a normal exam 04/01/2010 None Full Exam - General Respiratory auscultation Left upper lung field: a normal exam 04/01/2010 None Full Exam - General Respiratory auscultation Left lower lung field: a normal exam 04/01/2010 None Full Exam - General Respiratory auscultation Right upper lung field: a normal exa m 04/01/2010 None Full Exam - General Respiratory auscultation Right middle lung field: a normal ex am 04/01/2010 None Full Exam - General Respiratory auscultation Right lower lung field: a normal exa m 04/01/2010 None Full Exam - General Cardiovascular auscultation of heart Overall: regular rate 04/01/2010 None Full Exam - General Cardiovascular auscultation of heart Overall: normal heart sounds 04/01/2010 None Full Exam - General Cardiovascular auscultation of heart Overall: no murmurs 04/01/2010 None Full Exam - General Cardiovascular auscultation of heart Rate: regular rate 04/01/2010 None Full Exam - General Cardiovascular auscultation of heart Rhythm: regular rhythm 04/01/2010 None Full Exam - General Constitutional general appearance Overall: well nourished 04/01/2010 None Full Exam - General Constitutional general appearance Overall: well developed 04/01/2010 None Full Exam - General Constitutional general appearance Overall: in no acute distress 04/01/2010 None Full Exam - General Neurologic mental status Overall: alert 1 None Full Exam - General Neurologic mental status Overall: oriented 04/01/2010 None Full Exam - General Psychiatric mood and affect Overall: normal mood and affect 04/01/2010 None Full Exam - General Musculoskeletal spine, ribs and pelvis Spine: tender @ lumbar spin e 04/01/2010 None Full Exam - General Cardiovascular auscultation of heart S1: a normal exam 04/01/2010 None Full Exam - General Cardiovascular auscultation of heart S2: a normal exam 04/01/2010 None Full Exam - General Cardiovascular auscultation of heart S3 (ventricular gallop): present 04/01/2010 None Full Exam - General Eyes conjunctiva/eyelids Overall: cornea clear 01/22/2010 None Full Exam - General Eyes conjunctiva/eyelids Overall: eyelids normal 01/22/2010 None Full Exam - General Eyes pupils and irises Overall: pupils equal, round, reacti ve to light and accomodation 01/22/2010 None Full Exam - General Ears/Nose/Throat external ear Overall: normal appearance 01/22/2010 None Full Exam - General Ears/Nose/Throat otoscopic exam Left external auditory canal: complete cerumen impaction 01/22/2010 None Full Exam - General Ears/Nose/Throat otoscopic exam Right external auditory canal: complete cerumen impaction 01/22/2010 None Full Exam - General Ears/Nose/Throat otoscopic exam Left tympanic membrane: not visualized 01/22/2010 None Full Exam - General Ears/Nose/Throat otoscopic exam Right tympanic membrane: not visualized 01/22/2010 None Full Exam - General Ears/Nose/Throat lips/teeth/gingiva Overall: benign lips 01/22/2010 None Full Exam - General Ears/Nose/Throat lips/teeth/gingiva Overall: benign gingiva 01/22/2010 None Full Exam - General Ears/Nose/Throat lips/teeth/gingiva Overall: normal dentition 01/22/2010 None Full Exam - General Ears/Nose/Throat oral cavity/pharynx/larynx Overall: tonsils benign 01/22/2010 None Full Exam - General Ears/Nose/Throat oral cavity/pharynx/larynx Oropharynx: erythema 01/22/2010 None Full Exam - General Respiratory auscultation Overall: breath sounds clear bilater ally 01/22/2010 None Full Exam - General Respiratory respiratory effort/rhythm Overall: no retractions 01/22/2010 None Full Exam - General Respiratory respiratory effort/rhythm Overall: normal rate 01/22/2010 occasionally coughs durin g the exam Full Exam - General Cardiovascular auscultation of heart Overall: regular rate 01/22/2010 None Full Exam - General Cardiovascular auscultation of heart Overall: normal heart sounds 01/22/2010 None Full Exam - General Psychiatric orientation/consciousness Overall: oriented to person, place and time 01/22/2010 None Full Exam - General Constitutional general appearance Overall: well nourished 12/02/2009 None Full Exam - General Constitutional general appearance Overall: well developed 12/02/2009 None Full Exam - General Constitutional general appearance Overall: in no acute distress 12/02/2009 None Full Exam - General Neurologic mental status Overall: alert 0 None Full Exam - General Cardiovascular auscultation of heart Rate: regular rate 12/02/2009 None Full Exam - General Cardiovascular auscultation of heart Rhythm: regular rhythm 12/02/2009 None Full Exam - General Respiratory auscultation Right middle lung field: a normal ex am 12/02/2009 None Full Exam - General Respiratory auscultation Right lower lung field: a normal exa m 12/02/2009 None Full Exam - General Cardiovascular auscultation of heart Overall: regular rate 12/02/2009 None Full Exam - General Cardiovascular auscultation of heart Overall: normal heart sounds 12/02/2009 None Full Exam - General Cardiovascular auscultation of heart Overall: no murmurs 12/02/2009 None Full Exam - General Cardiovascular auscultation of heart S1: a normal exam 12/02/2009 None Full Exam - General Cardiovascular auscultation of heart S2: a normal exam 12/02/2009 None Full Exam - General Cardiovascular auscultation of heart S3 (ventricular gallop): present 12/02/2009 None Full Exam - General Abdomen abdominal exam Overall: no tenderness 12/02/2009 None Full Exam - General Neurologic mental status Overall: oriented 12/02/2009 None Full Exam - General Psychiatric mood and affect Overall: normal mood and affect 12/02/2009 None Full Exam - General Abdomen abdominal exam Overall: no masses 12/02/2009 None Full Exam - General Abdomen abdominal exam Overall: normal bowel sounds 12/02/2009 None Full Exam - General Abdomen abdominal exam Overall: soft 12/02/2009 None Full Exam - General Respiratory auscultation Overall: breath sounds clear bilater ally 12/02/2009 None Full Exam - General Respiratory auscultation Diffuse: a normal exam 12/02/2009 None Full Exam - General Respiratory auscultation Left upper lung field: a normal exam 12/02/2009 None Full Exam - General Respiratory auscultation Left lower lung field: a normal exam 12/02/2009 None Full Exam - General Respiratory auscultation Right upper lung field: a normal exa m 12/02/2009 None Full Exam - General Neurologic mental status Overall: oriented 10/21/2009 None Full Exam - General Psychiatric mood and affect Mood: depressed 10/21/2009 tearful Full Exam - General Neurologic mental status Overall: alert 0 None Full Exam - General Cardiovascular auscultation of heart Rate: regular rate 10/21/2009 None Full Exam - General Cardiovascular auscultation of heart Rhythm: regular rhythm 10/21/2009 None Full Exam - General Cardiovascular auscultation of heart S1: a normal exam 10/21/2009 None Full Exam - General Cardiovascular auscultation of heart S2: a normal exam 10/21/2009 None Full Exam - General Cardiovascular auscultation of heart S3 (ventricular gallop): present 10/21/2009 None Full Exam - General Cardiovascular extremities Overall: no clubbing 10/21/2009 None Full Exam - General Cardiovascular extremities Overall: No edema 10/21/2009 None Full Exam - General Cardiovascular extremities Overall: No cyanosis 10/21/2009 None Full Exam - General Psychiatric mood and affect Mood: anxious 10/21/2009 ringing hands Full Exam - General Psychiatric mood and affect Affect: constricted 10/21/2009 None Full Exam - General Respiratory auscultation Overall: breath sounds clear bilater ally 10/21/2009 None Full Exam - General Respiratory auscultation Diffuse: a normal exam 10/21/2009 None Full Exam - General Respiratory auscultation Left upper lung field: a normal exam 10/21/2009 None Full Exam - General Respiratory auscultation Left lower lung field: a normal exam 10/21/2009 None Full Exam - General Respiratory auscultation Right upper lung field: a normal exa m 10/21/2009 None Full Exam - General Respiratory auscultation Right middle lung field: a normal ex am 10/21/2009 None Full Exam - General Respiratory auscultation Right lower lung field: a normal exa m 10/21/2009 None Full Exam - General Cardiovascular auscultation of heart Overall: regular rate 10/21/2009 None Full Exam - General Cardiovascular auscultation of heart Overall: normal heart sounds 10/21/2009 None Full Exam - General Cardiovascular auscultation of heart Overall: no murmurs 10/21/2009 None Full Exam - General Constitutional general appearance Overall: well nourished 10/21/2009 None Full Exam - General Constitutional general appearance Overall: well developed 10/21/2009 None Full Exam - General Constitutional general appearance Overall: in no acute distress 10/21/2009 None Full Exam - General Psychiatric mood and affect Overall: normal mood and affect 08/11/2009 None Full Exam - General Respiratory auscultation Right middle lung field: a normal ex am 08/11/2009 None Full Exam - General Abdomen abdominal exam Overall: no masses 08/11/2009 None Full Exam - General Abdomen abdominal exam Overall: normal bowel sounds 08/11/2009 None Full Exam - General Constitutional general appearance Overall: well nourished 08/11/2009 None Full Exam - General Constitutional general appearance Overall: well developed 08/11/2009 None Full Exam - General Constitutional general appearance Overall: in no acute distress 08/11/2009 None Full Exam - General Respiratory auscultation Overall: breath sounds clear bilater ally 08/11/2009 None Full Exam - General Respiratory auscultation Diffuse: a normal exam 08/11/2009 None Full Exam - General Respiratory auscultation Left upper lung field: a normal exam 08/11/2009 None Full Exam - General Respiratory auscultation Left lower lung field: a normal exam 08/11/2009 None Full Exam - General Respiratory auscultation Right upper lung field: a normal exa m 08/11/2009 None Full Exam - General Respiratory auscultation Right lower lung field: a normal exa m 08/11/2009 None Full Exam - General Cardiovascular auscultation of heart Overall: regular rate 08/11/2009 None Full Exam - General Cardiovascular auscultation of heart Overall: normal heart sounds 08/11/2009 None Full Exam - General Cardiovascular auscultation of heart Overall: no murmurs 08/11/2009 None Full Exam - General Cardiovascular auscultation of heart Rate: regular rate 08/11/2009 None Full Exam - General Cardiovascular auscultation of heart Rhythm: regular rhythm 08/11/2009 None Full Exam - General Cardiovascular auscultation of heart S1: a normal exam 08/11/2009 None Full Exam - General Abdomen abdominal exam Overall: soft 08/11/2009 None Full Exam - General Abdomen abdominal exam Epigastric: tender to palpation 08/11/2009 None Full Exam - General Neurologic mental status Overall: alert 0 None Full Exam - General Neurologic mental status Overall: oriented 08/11/2009 None Full Exam - General Cardiovascular auscultation of heart S2: a normal exam 08/11/2009 None Full Exam - General Cardiovascular extremities Overall: no clubbing 08/11/2009 None Full Exam - General Cardiovascular extremities Overall: No edema 08/11/2009 None Full Exam - General Cardiovascular extremities Overall: No cyanosis 08/11/2009 None Full Exam - General Constitutional general appearance Overall: well nourished 06/09/2009 None Full Exam - General Constitutional general appearance Overall: well developed 06/09/2009 None Full Exam - General Constitutional general appearance Overall: in no acute distress 06/09/2009 None Full Exam - General Respiratory auscultation Overall: breath sounds clear bilater ally 06/09/2009 None Full Exam - General Respiratory auscultation Diffuse: a normal exam 06/09/2009 None Full Exam - General Respiratory auscultation Left upper lung field: a normal exam 06/09/2009 None Full Exam - General Respiratory auscultation Left lower lung field: a normal exam 06/09/2009 None Full Exam - General Respiratory auscultation Right upper lung field: a normal exa m 06/09/2009 None Full Exam - General Respiratory auscultation Right middle lung field: a normal ex am 06/09/2009 None Full Exam - General Respiratory auscultation Right lower lung field: a normal exa m 06/09/2009 None Full Exam - General Cardiovascular auscultation of heart Overall: regular rate 06/09/2009 None Full Exam - General Cardiovascular auscultation of heart Overall: normal heart sounds 06/09/2009 None Full Exam - General Cardiovascular auscultation of heart Murmur: previously known murmur unchanged 06/09/2009 None Full Exam - General Cardiovascular extremities Overall: no clubbing 06/09/2009 None Full Exam - General Cardiovascular extremities Overall: No cyanosis 06/09/2009 None Full Exam - General Cardiovascular extremities Edema present: severity 1+ - 4+: trace 06/09/2009 None Full Exam - General Abdomen abdominal exam Overall: no masses 06/09/2009 None Full Exam - General Abdomen abdominal exam Overall: no tenderness 06/09/2009 None Full Exam - General Abdomen abdominal exam Overall: normal bowel sounds 06/09/2009 None Full Exam - General Abdomen abdominal exam Overall: soft 06/09/2009 None Full Exam - General Neurologic mental status Overall: alert 0 None Full Exam - General Neurologic mental status Overall: oriented 06/09/2009 None Full Exam - General Psychiatric mood and affect Affect: flat 06/09/2009 None Procedures Procedure Codes Date ROUTINE VENIPUNCTURE CPT-4: 08576 08/14/2018 ASSAY THYROID STIM H ORMONE CPT-4: 38239 08/14/2018 COMPREHEN METABOLIC PANEL CPT-4: 37084 08/14/2018 COMPLETE CBC W/AUTO DIFF WBC CPT-4: 00651 08/14/2018 URINALYSIS NONAUTO W /O SCOPE CPT-4: 10965 05/10/2018 URINE CULTURE/ COLON Y COUNT CPT-4: 06764 05/10/2018 URINE CULTURE/ COLON Y COUNT CPT-4: 55105 12/06/2017 ROUTINE VENIPUNCTURE CPT-4: 91382 11/30/2017 ASSAY OF FREE THYROXINE CPT-4: 22835 11/30/2017 ASSAY THYROID STIM H ORMONE CPT-4: 50425 11/30/2017 COMPLETE CBC W/AUTO DIFF WBC CPT-4: 90607 11/30/2017 METABOLIC PANEL TOTA L CA CPT-4: 39023 11/30/2017 FLU VACC PRSV FREE I NC ANTIG 65 AND OLDER CPT-4: 53427 11/22/2017 ASSAY, GLUCOSE, BLOO D QUANT CPT-4: 54464 11/22/2017 ADMIN INFLUENZA VIRU S VAC CPT-4: G0008 11/22/2017 ROUTINE VENIPUNCTURE CPT-4: 99097 09/27/2017 COMPREHEN METABOLIC PANEL CPT-4: 73260 09/27/2017 COMPLETE CBC W/AUTO DIFF WBC CPT-4: 13090 09/27/2017 A1C HPLC CPT-4: 59658 09/27/2017 ASSAY OF TROPONIN QUANT CPT-4: 63777 09/27/2017 LIPID PANEL CPT-4: 59074 09/27/2017 THER/PROPH/DIAG INJ SC/IM CPT-4: 26477 05/30/2017 TRIAMCINOLONE ACET I [place] NOS CPT-4: J3301 05/30/2017 URINALYSIS NONAUTO W /O SCOPE CPT-4: 18458 04/18/2017 URINE CULTURE/ COLON Y COUNT CPT-4: 12846 04/18/2017 FLU VACC PRSV FREE I NC ANTIG 65 AND OLDER CPT-4: 59429 12/10/2016 ADMIN INFLUENZA VIRU S VAC CPT-4: G0008 12/10/2016 ROUTINE VENIPUNCTURE CPT-4: 45196 11/01/2016 COMPREHEN METABOLIC PANEL CPT-4: 24404 11/01/2016 COMPLETE CBC W/AUTO DIFF WBC CPT-4: 50513 11/01/2016 LIPID PANEL CPT-4: 85537 11/01/2016 A1C HPLC CPT-4: 28155 11/01/2016 ASSAY THYROID STIM H ORMONE CPT-4: 93122 11/01/2016 ROUTINE VENIPUNCTURE CPT-4: 81214 05/13/2016 ASSAY THYROID STIM H ORMONE CPT-4: 90375 05/13/2016 COMPREHEN METABOLIC PANEL CPT-4: 57765 05/13/2016 COMPLETE CBC W/AUTO DIFF WBC CPT-4: 32799 05/13/2016 A1C HPLC CPT-4: 35413 05/13/2016 FLU VACC PRSV FREE I NC ANTIG 65 AND OLDER CPT-4: 95739 12/12/2015 ADMIN INFLUENZA VIRU S VAC CPT-4: G0008 12/12/2015 ROUTINE VENIPUNCTURE CPT-4: 14197 11/25/2015 ASSAY OF FREE THYROXINE CPT-4: 33574 11/25/2015 ASSAY THYROID STIM H ORMONE CPT-4: 51112 11/25/2015 COMPREHEN METABOLIC PANEL CPT-4: 38307 11/25/2015 COMPLETE CBC W/AUTO DIFF WBC CPT-4: 13447 11/25/2015 LIPID PANEL CPT-4: 60157 11/25/2015 A1C HPLC CPT-4: 45372 11/25/2015 URINALYSIS NONAUTO W /O SCOPE CPT-4: 35365 05/21/2015 ROUTINE VENIPUNCTURE CPT-4: 96167 02/19/2015 METABOLIC PANEL TOTA L CA CPT-4: 97283 02/19/2015 PRESCRIP TRANSMIT A ERX SY CPT-4: G8553 02/19/2015 FLU VACC PRSV FREE I NC ANTIG 65 AND OLDER CPT-4: 90206 12/20/2014 ADMIN INFLUENZA VIRU S VAC CPT-4: G0008 12/20/2014 URINALYSIS NONAUTO W /O SCOPE CPT-4: 20671 11/19/2014 URINE CULTURE/ COLON Y COUNT CPT-4: 36633 11/19/2014 ROUTINE VENIPUNCTURE CPT-4: 59914 11/14/2014 ASSAY OF FREE THYROXINE CPT-4: 67939 11/14/2014 ASSAY THYROID STIM H ORMONE CPT-4: 78893 11/14/2014 COMPREHEN METABOLIC PANEL CPT-4: 99146 11/14/2014 COMPLETE CBC W/AUTO DIFF WBC CPT-4: 22145 11/14/2014 LIPID PANEL CPT-4: 30398 11/14/2014 A1C HPLC CPT-4: 12978 11/14/2014 CERUM REMOVAL CPT-4: 83671 09/27/2014 PRESCRIP TRANSMIT A ERX SY CPT-4: G8553 07/11/2014 FLUZONE, 5ML (Medicare) CPT-4: Q2038 12/21/2013 ADMIN INFLUENZA VIRU S VAC CPT-4: G0008 12/21/2013 PRESCRIP TRANSMIT A ERX SY CPT-4: G8553 10/17/2013 PRESCRIP TRANSMIT A ERX SY CPT-4: G8553 09/24/2013 PRESCRIP TRANSMIT A ERX SY CPT-4: G8553 05/31/2013 ROUTINE VENIPUNCTURE CPT-4: 28979 03/28/2013 ASSAY OF FREE THYROXINE CPT-4: 66960 03/28/2013 ASSAY THYROID STIM H ORMONE CPT-4: 05179 03/28/2013 COMPREHEN METABOLIC PANEL CPT-4: 93497 03/28/2013 COMPLETE CBC W/AUTO DIFF WBC CPT-4: 77368 03/28/2013 LIPID PANEL CPT-4: 59571 03/28/2013 A1C HPLC CPT-4: 66242 03/28/2013 VITAMIN B 12 FOLIC ACID CPT-4: 54999|87091 03/28/2013 PRESCRIP TRANSMIT A ERX SY CPT-4: G8553 03/26/2013 PRESCRIP TRANSMIT A ERX SY CPT-4: G8553 12/19/2012 FLUZONE, 5ML (Medicare) CPT-4: Q2038 11/27/2012 ADMIN INFLUENZA VIRU S VAC CPT-4: G0008 11/27/2012 PRESCRIP TRANSMIT A ERX SY CPT-4: G8553 10/04/2012 PRESCRIP TRANSMIT A ERX SY CPT-4: G8553 07/14/2012 ROUTINE VENIPUNCTURE CPT-4: 04561 02/23/2012 ASSAY OF FREE THYROXINE CPT-4: 94369 02/23/2012 ASSAY THYROID STIM H ORMONE CPT-4: 73189 02/23/2012 COMPREHEN METABOLIC PANEL CPT-4: 55371 02/23/2012 COMPLETE CBC W/AUTO DIFF WBC CPT-4: 45746 02/23/2012 LIPID PANEL CPT-4: 73561 02/23/2012 A1C GLYCOSYLATED HEM OGLOBIN TEST CPT-4: 26902 02/23/2012 CERUM REMOVAL CPT-4: 16342 02/22/2012 PRESCRIP TRANSMIT A ERX SY CPT-4: G8553 02/22/2012 PRESCRIP TRANSMIT A ERX SY CPT-4: G8553 12/15/2011 FLUZONE, 5ML (Medicare) CPT-4: Q2038 12/02/2011 ADMIN INFLUENZA VIRU S VAC CPT-4: G0008 12/02/2011 ASSAY, GLUCOSE, BLOO D QUANT CPT-4: 77700 09/21/2011 URINALYSIS NONAUTO W /O SCOPE CPT-4: 17883 09/16/2011 URINE CULTURE/ COLON Y COUNT CPT-4: 88195 09/16/2011 ROUTINE VENIPUNCTURE CPT-4: 21590 09/15/2011 ASSAY OF FREE THYROXINE CPT-4: 15546 09/15/2011 ASSAY THYROID STIM H ORMONE CPT-4: 34203 09/15/2011 COMPREHEN METABOLIC PANEL CPT-4: 93909 09/15/2011 COMPLETE CBC W/AUTO DIFF WBC CPT-4: 58170 09/15/2011 LIPID PANEL CPT-4: 78914 09/15/2011 ASSAY OF INSULIN CPT-4: 55783 09/15/2011 A1C GLYCOSYLATED HEM OGLOBIN TEST CPT-4: 86925 09/15/2011 DRAIN/INJECT JOINT/B URSA CPT-4: 79849 08/16/2011 METHYLPREDNISOLONE 4 0 MG INJ CPT-4: J1030 08/16/2011 TRIAMCINOLONE ACET I [place] NOS CPT-4: J3301 08/16/2011 PRESCRIP TRANSMIT A ERX SY CPT-4: G8553 08/03/2011 PRESCRIP TRANSMIT A ERX SY CPT-4: G8553 07/26/2011 METHYLPREDNISOLONE 4 0 MG INJ CPT-4: J1030 06/28/2011 DRAIN/INJECT JOINT/B URSA CPT-4: 86479 06/28/2011 TRIAMCINOLONE ACET I [place] NOS CPT-4: J3301 06/28/2011 PRESCRIP TRANSMIT A ERX SY CPT-4: G8553 06/28/2011 ROUTINE VENIPUNCTURE CPT-4: 93021 04/01/2011 ASSAY OF FREE THYROXINE CPT-4: 66649 04/01/2011 ASSAY THYROID STIM H ORMONE CPT-4: 70501 04/01/2011 COMPREHEN METABOLIC PANEL CPT-4: 84764 04/01/2011 COMPLETE CBC W/AUTO DIFF WBC CPT-4: 05413 04/01/2011 LIPID PANEL CPT-4: 04008 04/01/2011 PRESCRIP TRANSMIT A ERX SY CPT-4: G8553 03/31/2011 CERUM REMOVAL CPT-4: 75520 02/11/2011 PRESCRIP TRANSMIT A ERX SY CPT-4: G8553 02/11/2011 FLUZONE, 5ML (Medicare) CPT-4: Q2038 12/09/2010 ADMIN INFLUENZA VIRU S VAC CPT-4: G0008 12/09/2010 PRESCRIP TRANSMIT A ERX SY CPT-4: G8553 10/15/2010 URINALYSIS NONAUTO W /O SCOPE CPT-4: 39444 09/29/2010 URINE CULTURE/ COLON Y COUNT CPT-4: 02802 09/29/2010 CUR TOBACCO NON-USER CPT-4: G8457 09/29/2010 ROUTINE VENIPUNCTURE CPT-4: 91486 07/06/2010 COMPLETE CBC W/AUTO DIFF WBC CPT-4: 01119 07/06/2010 COMPREHEN METABOLIC PANEL CPT-4: 72937 07/06/2010 LIPID PANEL CPT-4: 17264 07/06/2010 ASSAY THYROID STIM H ORMONE CPT-4: 34995 07/06/2010 ASSAY OF FREE THYROXINE CPT-4: 42080 07/06/2010 PRESCRIP TRANSMIT A ERX SY CPT-4: G8553 07/02/2010 INJ TRIGGER POINT 1/ 2 MUSCL CPT-4: 50433 04/06/2010 TRIAMCINOLONE ACET I [place] NOS CPT-4: J3301 04/06/2010 METHYLPREDNISOLONE 4 0 MG INJ CPT-4: J1030 04/06/2010 THER/PROPH/DIAG INJ SC/IM CPT-4: 80036 04/01/2010 KETOROLAC TROMETHAMI NE INJ CPT-4: J1885 04/01/2010 PRESCRIP TRANSMIT A ERX SY CPT-4: G8553 01/22/2010 FLU VACCINE 3 YRS & > IM UP 64 CPT-4: 20731 12/10/2009 ADMIN INFLUENZA VIRU S VAC CPT-4: G0008 12/10/2009 URINALYSIS NONAUTO W /O SCOPE CPT-4: 58592 12/02/2009 URINE CULTURE/ COLON Y COUNT CPT-4: 95930 12/02/2009 PRESCRIP TRANSMIT A ERX SY CPT-4: G8553 12/02/2009 THER/PROPH/DIAG INJ SC/IM CPT-4: 73766 09/10/2009 VITAMIN B12 INJECTION CPT-4: J3420 09/10/2009 THER/PROPH/DIAG INJ SC/IM CPT-4: 54428 08/11/2009 VITAMIN B12 INJECTION CPT-4: J3420 08/11/2009 ROUTINE VENIPUNCTURE CPT-4: 23176 06/10/2009 Vital Signs Date Vital 11/07/2018 Blood Pressure 1: 140/70 Code: 8480-6 Heart Rate 1: 57 bpm SpO2: 99% Temperature: 35.9 (C ) / 96.6 (F) Weight: 215 lbs 08/14/2018 Blood Pressure 1: 144/70 Code: 8480-6 Heart Rate 1: 60 bpm Respiratory Rate: 20 bpm SpO2: 95% Temperature: 36.4 (C ) / 97.6 (F) Weight: 214 lbs 05/10/2018 Blood Pressure 1: 128/78 Code: 8480-6 Heart Rate 1: 56 bpm Respiratory Rate: 20 bpm SpO2: 98% Temperature: 36.3 (C ) / 97.4 (F) Weight: 213 lbs 02/14/2018 Blood Pressure 1: 142/60 Code: 8480-6 BMI: 38.2 Code: 37611-5 Heart Rate 1: 48 bpm Height: 5'2" Respiratory Rate: 20 bpm SpO2: 98% Temperature: 36.7 (C ) / 98.1 (F) Weight: 212 lbs 01/10/2018 Blood Pressure 1: 142/64 Code: 8480-6 BMI: 38.5 Code: 28027-3 Heart Rate 1: 52 bpm Height: 5'2" Respiratory Rate: 22 bpm SpO2: 96% Temperature: 36.1 (C ) / 96.9 (F) Weight: 214 lbs 12/06/2017 Blood Pressure 1: 124/80 Code: 8480-6 BMI: 38.3 Code: 67778-0 Heart Rate 1: 68 bpm Height: 5'2" Respiratory Rate: 20 bpm Temperature: 36.3 (C ) / 97.4 (F) Weight: 213 lbs 11/22/2017 Blood Pressure 1: 132/78 Code: 8480-6 BMI: 37.6 Code: 86717-1 Heart Rate 1: 68 bpm Height: 5'2" Respiratory Rate: 20 bpm SpO2: 97% Temperature: 36.8 (C ) / 98.2 (F) Weight: 209 lbs 10/20/2017 Blood Pressure 1: 150/76 Code: 8480-6 BMI: 38.5 Code: 95434-1 Heart Rate 1: 64 bpm Height: 5'2" Respiratory Rate: 20 bpm SpO2: 97% Temperature: 36.2 (C ) / 97.2 (F) Weight: 214 lbs 09/27/2017 Blood Pressure 1: 122/74 Code: 8480-6 BMI: 38.2 Code: 44849-2 Heart Rate 1: 64 bpm Height: 5'2" Respiratory Rate: 18 bpm SpO2: 96% Temperature: 35.8 (C ) / 96.4 (F) Weight: 212 lbs 08/16/2017 Blood Pressure 1: 124/78 Code: 8480-6 BMI: 37.8 Code: 52819-2 Heart Rate 1: 76 bpm Height: 5'2" Respiratory Rate: 20 bpm Temperature: 36.8 (C ) / 98.3 (F) Weight: 210 lbs 07/07/2017 Blood Pressure 1: 136/70 Code: 8480-6 BMI: 38.0 Code: 53133-4 Heart Rate 1: 68 bpm Height: 5'2" Respiratory Rate: 20 bpm SpO2: 97% Temperature: 36.8 (C ) / 98.2 (F) Weight: 211 lbs 05/30/2017 Blood Pressure 1: 140/65 Code: 8480-6 Heart Rate 1: 75 bpm Respiratory Rate: 24 bpm SpO2: 95% Temperature: 37.0 (C ) / 98.6 (F) Weight: 211 lbs 04/18/2017 Blood Pressure 1: 154/70 Code: 8480-6 BMI: 37.6 Code: 72293-5 Heart Rate 1: 76 bpm Height: 5'2" Respiratory Rate: 20 bpm SpO2: 98% Temperature: 36.9 (C ) / 98.5 (F) Weight: 209 lbs 10/25/2016 Blood Pressure 1: 156/70 Code: 8480-6 BMI: 37.1 Code: 93018-2 Heart Rate 1: 72 bpm Height: 5'2" Respiratory Rate: 20 bpm SpO2: 97% Temperature: 37.0 (C ) / 98.6 (F) Weight: 206 lbs 09/20/2016 Blood Pressure 1: 152/78 Code: 8480-6 BMI: 36.8 Code: 69203-8 Heart Rate 1: 78 bpm Height: 5'2" Respiratory Rate: 20 bpm SpO2: 98% Temperature: 36.1 (C ) / 97.0 (F) Weight: 204 lbs 05/12/2016 Blood Pressure 1: 142/70 Code: 8480-6 BMI: 36.9 Code: 05875-3 Heart Rate 1: 64 bpm Height: 5'2" Respiratory Rate: 20 bpm SpO2: 96% Temperature: 36.5 (C ) / 97.7 (F) Weight: 205 lbs 03/18/2016 Blood Pressure 1: 142/68 Code: 8480-6 Heart Rate 1: 88 bpm Respiratory Rate: 18 bpm SpO2: 98% Temperature: 36.3 (C ) / 97.3 (F) Weight: 209 lbs 02/06/2016 Blood Pressure 1: 130/78 Code: 8480-6 Heart Rate 1: 68 bpm Respiratory Rate: 20 bpm SpO2: 95% Temperature: 36.4 (C ) / 97.6 (F) Weight: 212 lbs 08/26/2015 Blood Pressure 1: 122/64 Code: 8480-6 BMI: 39.1 Code: 14341-8 Heart Rate 1: 76 bpm Height: 5'2" Respiratory Rate: 20 bpm Temperature: 36.8 (C ) / 98.2 (F) Weight: 217 lbs 05/21/2015 Blood Pressure 1: 144/70 Code: 8480-6 BMI: 39.4 Code: 62698-7 Heart Rate 1: 76 bpm Height: 5'2" Respiratory Rate: 20 bpm Temperature: 36.6 (C ) / 97.9 (F) Weight: 219 lbs 02/19/2015 Blood Pressure 1: 152/60 Code: 8480-6 BMI: 39.6 Code: 88440-5 Heart Rate 1: 84 bpm Height: 5'2" Respiratory Rate: 20 bpm Temperature: 37.0 (C ) / 98.6 (F) Weight: 220 lbs 11/13/2014 Blood Pressure 1: 146/76 Code: 8480-6 BMI: 39.8 Code: 35366-0 Heart Rate 1: 88 bpm Height: 5'2" Respiratory Rate: 20 bpm Temperature: 37.0 (C ) / 98.6 (F) Weight: 221 lbs 09/27/2014 Blood Pressure 1: 132/70 Code: 8480-6 BMI: 39.1 Code: 37117-0 Heart Rate 1: 88 bpm Height: 5'2" Respiratory Rate: 20 bpm Temperature: 36.4 (C ) / 97.6 (F) Weight: 217 lbs 07/11/2014 Blood Pressure 1: 132/66 Code: 8480-6 BMI: 39.9 Code: 52095-5 Heart Rate 1: 72 bpm Height: 5'2" Respiratory Rate: 20 bpm Temperature: 36.9 (C ) / 98.4 (F) Weight: 218 lbs 05/23/2014 Blood Pressure 1: 136/80 Code: 8480-6 Heart Rate 1: 76 bpm Respiratory Rate: 20 bpm Temperature: 36.7 (C) / 98.0 (F) Weight: 224 lbs 03/20/2014 Blood Pressure 1: 134/78 Code: 8480-6 BMI: 39.7 Code: 40846-6 Heart Rate 1: 84 bpm Height: 5'2" Respiratory Rate: 20 bpm Temperature: 36.7 (C ) / 98.0 (F) Weight: 217 lbs 10/17/2013 Blood Pressure 1: 146/78 Code: 8480-6 BMI: 39.5 Code: 82759-8 Heart Rate 1: 82 bpm Height: 5'2" Respiratory Rate: 18 bpm Temperature: 35.6 (C ) / 96.1 (F) Weight: 216 lbs 09/24/2013 Blood Pressure 1: 134/70 Code: 8480-6 BMI: 37.9 Code: 23556-0 Heart Rate 1: 80 bpm Height: 5'3" Respiratory Rate: 20 bpm Temperature: 36.8 (C ) / 98.2 (F) Weight: 214 lbs 05/31/2013 Blood Pressure 1: 132/70 Code: 8480-6 BMI: 37.6 Code: 89674-4 Heart Rate 1: 80 bpm Height: 5'3" Respiratory Rate: 20 bpm Temperature: 36.8 (C ) / 98.3 (F) Weight: 212 lbs 03/26/2013 Blood Pressure 1: 116/74 Code: 8480-6 Heart Rate 1: 68 bpm Respiratory Rate: 20 bpm Temperature: 36.2 (C) / 97.1 (F) Weight: 212 lbs 12/19/2012 Blood Pressure 1: 132/82 Code: 8480-6 BMI: 37.4 Code: 24420-5 Heart Rate 1: 76 bpm Height: 5'3" Respiratory Rate: 20 bpm Temperature: 36.7 (C ) / 98.0 (F) Weight: 211 lbs 12/04/2012 Blood Pressure 1: 130/76 Code: 8480-6 Heart Rate 1: 78 bpm 11/27/2012 Blood Pressure 1: 140/82 Code: 8480-6 BMI: 36.8 Code: 06015-4 Heart Rate 1: 66 bpm Height: 5'3" Respiratory Rate: 20 bpm Temperature: 36.1 (C ) / 96.9 (F) Weight: 208 lbs 10/04/2012 Blood Pressure 1: 138/80 Code: 8480-6 BMI: 36.4 Code: 87241-0 Heart Rate 1: 72 bpm Height: 5'4" Respiratory Rate: 20 bpm Temperature: 36.7 (C ) / 98.0 (F) Weight: 212 lbs 07/27/2012 Blood Pressure 1: 124/70 Code: 8480-6 BMI: 36.9 Code: 16911-7 Heart Rate 1: 60 bpm Height: 5'4" Temperature: 36.1 (C ) / 97.0 (F) Weight: 215 lbs 07/14/2012 Blood Pressure 1: 132/86 Code: 8480-6 BMI: 36.9 Code: 24831-3 Heart Rate 1: 76 bpm Height: 5'4" Respiratory Rate: 20 bpm Temperature: 36.8 (C ) / 98.2 (F) Weight: 215 lbs 06/08/2012 Blood Pressure 1: 134/82 Code: 8480-6 BMI: 36.6 Code: 06967-2 Heart Rate 1: 72 bpm Height: 5'4" Respiratory Rate: 20 bpm Temperature: 36.3 (C ) / 97.4 (F) Weight: 213 lbs 02/22/2012 Blood Pressure 1: 142/80 Code: 8480-6 BMI: 37.1 Code: 01738-2 Heart Rate 1: 76 bpm Height: 5'4" Respiratory Rate: 20 bpm Temperature: 36.8 (C ) / 98.3 (F) Weight: 216 lbs 12/28/2011 Blood Pressure 1: 128/68 Code: 8480-6 BMI: 37.6 Code: 73897-1 Heart Rate 1: 72 bpm Height: 5'4" Respiratory Rate: 20 bpm Temperature: 36.6 (C ) / 97.9 (F) Weight: 219 lbs 12/15/2011 Blood Pressure 1: 122/70 Code: 8480-6 Heart Rate 1: 76 bpm Respiratory Rate: 20 bpm Temperature: 36.7 (C) / 98.1 (F) Weight: 218 lbs 09/21/2011 Blood Pressure 1: 132/80 Code: 8480-6 Heart Rate 1: 84 bpm 09/13/2011 Blood Pressure 1: 128/78 Code: 8480-6 BMI: 38.1 Code: 83729-9 Heart Rate 1: 84 bpm Height: 5'4" Respiratory Rate: 20 bpm Temperature: 36.9 (C ) / 98.4 (F) Weight: 222 lbs 08/16/2011 Blood Pressure 1: 138/80 Code: 8480-6 BMI: 37.9 Code: 96366-2 Heart Rate 1: 74 bpm Height: 5'4" Temperature: 36.1 (C ) / 97.0 (F) Weight: 221 lbs 08/03/2011 Blood Pressure 1: 126/78 Code: 8480-6 BMI: 38.4 Code: 39714-3 Heart Rate 1: 72 bpm Height: 5'4" Respiratory Rate: 20 bpm Temperature: 36.7 (C ) / 98.0 (F) Weight: 224 lbs 07/26/2011 Blood Pressure 1: 138/72 Code: 8480-6 BMI: 38.4 Code: 12425-0 Heart Rate 1: 72 bpm Height: 5'4" Respiratory Rate: 20 bpm Temperature: 36.6 (C ) / 97.9 (F) Weight: 224 lbs 06/28/2011 Blood Pressure 1: 122/78 Code: 8480-6 BMI: 38.8 Code: 03931-3 Heart Rate 1: 88 bpm Height: 5'4" Respiratory Rate: 20 bpm Temperature: 36.6 (C ) / 97.8 (F) Weight: 226 lbs 03/31/2011 Blood Pressure 1: 116/60 Code: 8480-6 BMI: 38.1 Code: 33362-9 Heart Rate 1: 92 bpm Height: 5'4" Respiratory Rate: 20 bpm Temperature: 36.8 (C ) / 98.2 (F) Weight: 222 lbs 02/11/2011 Blood Pressure 1: 118/62 Code: 8480-6 BMI: 37.9 Code: 43369-4 Heart Rate 1: 80 bpm Height: 5'4" Temperature: 36.5 (C ) / 97.7 (F) Weight: 221 lbs 10/15/2010 Blood Pressure 1: 132/70 Code: 8480-6 Heart Rate 1: 84 bpm Respiratory Rate: 20 bpm Temperature: 36.7 (C) / 98.0 (F) Weight: 221 lbs 09/29/2010 Blood Pressure 1: 114/72 Code: 8480-6 BMI: 37.6 Code: 93038-8 Heart Rate 1: 76 bpm Height: 5'4" Respiratory Rate: 20 bpm Temperature: 36.8 (C ) / 98.3 (F) Weight: 219 lbs 07/02/2010 Blood Pressure 1: 136/76 Code: 8480-6 Temperature: 36.0 (C) / 96.8 (F) Weight: 219 lbs 8 oz 04/06/2010 Blood Pressure 1: 128/80 Code: 8480-6 Heart Rate 1: 72 bpm Temperature: 36.3 (C) / 97.4 (F) Weight: 218 lbs 04/01/2010 Blood Pressure 1: 126/70 Code: 8480-6 Heart Rate 1: 72 bpm Temperature: 36.7 (C) / 98.0 (F) 01/22/2010 Blood Pressure 1: 126/78 Code: 8480-6 Temperature: 36.2 (C) / 97.1 (F) Weight: 217 [...] 1: 120/70 Code: 8480-6 BMI: 38.3 Code: 50407-8 Heart Rate 1: 88 bpm Height: 5'5" Temperature: 36.4 (C ) / 97.6 (F) Weight: 230 lbs Functional Status No Functional Status data History of Present Illness Symptom Name Status Resu lt Effective Date Notes Quality chronic 08/14/2018 None Quality stable 08/14/2018 None Quality chronic 08/14/2018 None Quality hesitancy 05/10/2018 None Quality stable 05/10/2018 None Quality acute 05/10/2018 None Quality improving 05/10/2018 back on omeprazole--finished all of H py roxy regimen but had pain in swelling in feet and hands with protonix gastroesophageal reflux Quality regurgitation of acid 02/14/2018 None gastroesophageal reflux Quality chronic 02/14/2018 None chest pain/pressure Location in the substernal area 02/14/2018 None chest pain/pressure Quality stable 02/14/2018 None gastroesophageal reflux Onset and Re solution ongoing 02/14/2018 None anxiety Quality acute 01/10/2018 None anxiety Quality agitation 01/10/2018 None anxiety Onset and Resolution ongoing 01/10/2018 None arrhythmia Quality acute 01/10/2018 None arrhythmia Quality inter mittent 01/10/2018 None arrhythmia Onset and Resolution ongoing 01/10/2018 None gastroesophageal reflux Quality acute 01/10/2018 None gastroesophageal reflux Quality regurgitation of acid 01/10/2018 None gastroesophageal reflux Onset and Re solution ongoing 01/10/2018 None gastroesophageal reflux Onset of Symptom during adulthood 01/10/2018 None hypertension Onset and Resolution ongoing 01/10/2018 None abdominal pain Location in the epigastric area 12/06/2017 None abdominal pain Quality i mproving 12/06/2017 None arrhythmia Quality irreg ular beats 12/06/2017 told holter showed episod e of atrial fibrillation so has to get a stress test done stress Exacerbating Factors stressful life changes 12/06/2017 None anxiety Onset and Resolution ongoing 12/06/2017 None fatigue Quality chronic 12/06/2017 None fatigue Quality constant 12/06/2017 None fatigue Onset and Resolution ongoing 12/06/2017 None gastroesophageal reflux Quality chronic 11/22/2017 None gastroesophageal reflux Onset and Re solution ongoing 11/22/2017 None abdominal pain Location in the periumbilical area 11/22/2017 None abdominal pain Location in the epigastric area 11/22/2017 None abdominal pain Quality b urning. 11/22/2017 Patient was in ER on 11/18 and was started on carafate 1gm QID muscle weakness Location diffusely 10/20/2017 None muscle weakness Quality clumsiness 10/20/2017 None muscle weakness Quality worsening 10/20/2017 None muscle weakness Quality fatigue 10/20/2017 None hypertension Quality wor sening 10/20/2017 None headache Location diffus clementine 10/20/2017 None dizziness Quality lighth eadedness 10/20/2017 None dizziness Quality imbala nce 10/20/2017 None dizziness Onset and Resolution ongoing 10/20/2017 None dizziness Onset of Symptom 1 1/2 months ago 10/20/2017 None muscle weakness Onset and Resolution ongoing 10/20/2017 None muscle weakness Onset of Symptom 1 1/2 months ago 10/20/2017 None hypoglycemia Quality int ermittent 10/20/2017 None neck pain Location in th e posterior area 08/16/2017 None neck pain Quality improv ing. 08/16/2017 Patient is still going to PT twice weekly and home exercises neck pain Location on th e right 08/16/2017 None dyspnea Quality shortnes s of breath 07/07/2017 None dyspnea Quality breathle ssness 07/07/2017 None back pain Location in th e right upper back area 07/07/2017 None back pain Onset and Resolution ongoing 07/07/2017 None back pain Quality dull 07/07/2017 None back pain Quality consta nt 07/07/2017 None back pain Quality discom fort 07/07/2017 None muscle weakness Location diffusely 07/07/2017 None muscle weakness Quality lower extremities 07/07/2017 None muscle weakness Quality fatigue 07/07/2017 None muscle weakness Quality clumsiness 07/07/2017 None muscle weakness Quality worsening 07/07/2017 None otalgia Location on both sides 05/30/2017 None otalgia Quality acute 05/30/2017 None otalgia Onset and Resolution sudden in onset 05/30/2017 None back pain Location in th e left lower back area 04/18/2017 None back pain Quality discom fort 04/18/2017 None back pain Radiating the inguinal area 04/18/2017 None back pain Radiating into left hip 04/18/2017 None back pain Onset of Symptom 1 weeks ago 04/18/2017 None back pain Quality sharp 04/18/2017 None back pain Quality consta nt 04/18/2017 None back pain Quality dull 10/25/2016 None back pain Quality improv ing. 10/25/2016 Patient has finished PT a nd continues to do home exercises back pain Quality stable 10/25/2016 None back pain Location lumba r spine 10/25/2016 None gait abnormality Quality unsteady 10/25/2016 None gait abnormality Quality improving 10/25/2016 None pelvic pain Location on the left 09/20/2016 None pelvic pain Quality acute 09/20/2016 None pelvic pain Quality achi ng 09/20/2016 None pelvic pain Quality coli cky 09/20/2016 None pelvic pain Quality heav iness 09/20/2016 None pelvic pain Onset and Resolution gradual in onset 09/20/2016 None pelvic pain Onset of Symptom 2 months ago 09/20/2016 None hyperglycemia Quality gl ucose intolerance 05/12/2016 None hyperglycemia Quality wo rsening. 05/12/2016 Blood sugars have increas ed into 110-120's hyperglycemia Onset of Symptom 2-3 months ago 05/12/2016 None breast complaint Location in the left 05/12/2016 None breast complaint Location in the right 05/12/2016 None breast complaint Quality tenderness 05/12/2016 None cough Location in the th roat 03/18/2016 None cough Quality acute 03/18/2016 None cough Quality dry 03/18/2016 None cough Quality hacking 03/18/2016 None cough Quality tight 03/18/2016 None cough Onset of Symptom 1 -2 days ago 03/18/2016 None otalgia Location on both sides 03/18/2016 None otalgia Quality acute 03/18/2016 None otalgia Quality throbbing 03/18/2016 None otalgia Onset and Resolution sudden in onset 03/18/2016 None otalgia Onset of Symptom 3-5 days ago 03/18/2016 None chest tightness Location diffusely 03/18/2016 None chest tightness Quality acute 03/18/2016 None chest tightness Quality dull 03/18/2016 None chest tightness Quality pleuritic 03/18/2016 None chest tightness Quality piercing 03/18/2016 None chest tightness Onset and Resolution sudden in onset 03/18/2016 None chest tightness Onset of Symptom 3-5 days ago 03/18/2016 None cough Quality productive 03/18/2016 None nasal discharge Location in both nares 03/18/2016 None nasal discharge Quality acute 03/18/2016 None nasal discharge Quality green 03/18/2016 None nasal discharge Quality thick 03/18/2016 None nasal discharge Quality worsening 03/18/2016 None nasal discharge Onset of Symptom _ days ago 03/18/2016 None sinus congestion Quality acute 03/18/2016 None sinus congestion Quality fullness 03/18/2016 None sinus congestion Quality pain 03/18/2016 None sinus congestion Quality pressure 03/18/2016 None sinus congestion Onset of Symptom _ days ago 03/18/2016 None otalgia Location on the right 02/06/2016 None otalgia Quality throbbing 02/06/2016 None otalgia Onset and Resolution gradual in onset 02/06/2016 None otalgia Onset of Symptom 1 weeks ago 02/06/2016 None otalgia Onset and Resolution ongoing 02/06/2016 Has been using loratadine and flonase otalgia Quality acute 02/06/2016 None otalgia Onset and Resolution sudden in onset 02/06/2016 None constipation Quality andra ry 2-3 days 08/26/2015 None constipation Quality sma ll stools 08/26/2015 None constipation Quality hard 08/26/2015 None constipation Onset and Resolution ongoing 08/26/2015 None constipation Alleviating Factors medication. 08/26/2015 Has tried various OTC nisha atments with very little releif constipation Alleviating Factors diet changes 08/26/2015 None flank pain Location on b oth sides 05/21/2015 None flank pain Quality stabb ing 05/21/2015 None flank pain Quality sharp 05/21/2015 None flank pain Onset and Resolution resolved 05/21/2015 Only had the one episode 1 week ago back pain Location in th e low back 05/21/2015 None back pain Quality dull 05/21/2015 None back pain Quality chronic 05/21/2015 None back pain Onset and Resolution worse during the morning 05/21/2015 None hyperglycemia Quality gl ucose intolerance 02/19/[address] able 02/19/2015 None otalgia Location on both sides 02/19/2015 None otalgia Quality dull 02/19/2015 None dizziness Quality interm ittent 02/19/2015 None dizziness Quality lighth eadedness 02/19/2015 None dizziness Quality imbala nce 02/19/2015 None hypertension Quality chr onic 02/19/2015 None hypertension Quality sta ble 02/19/2015 None otalgia Quality acute 02/19/2015 None otalgia Onset and Resolution sudden in onset 02/19/2015 None otalgia Onset and Resolution ongoing 02/19/2015 None hypertension Onset and Resolution ongoing 02/19/2015 None hypertension Onset of Symptom during adulthood 02/19/2015 None hypertension Exacerbating Factors stress 02/19/2015 None hypertension Alleviating Factors medication 02/19/2015 None hyperglycemia Onset of Symptom during adulthood 02/19/2015 None otalgia Severity moderate 02/19/2015 None otalgia Triggers positio n change 02/19/2015 None dizziness Onset and Resolution ongoing 02/19/2015 None dizziness Quality rotati on 02/19/2015 None dizziness Quality loss o f balance 02/19/2015 None dizziness Quality sense of room spinning 02/19/2015 None dizziness Quality vertigo 02/19/2015 None dizziness Quality worsen ing 02/19/2015 None nasal allergies Location in both nares 02/19/2015 None ataxia Quality feeling o f unsteadiness with walking 02/19/2015 None ataxia Onset and Resolution ongoing 02/19/2015 None ataxia Quality worsening 02/19/2015 None ataxia Onset of Symptom during adulthood 02/19/2015 None ataxia Limitation on Activities necessitates ambulation with a cane or walker 02/19/2015 to make sure doesn't fall ataxia Frequency of Episodes increasing 02/19/2015 None ataxia Triggers activity 02/19/2015 has became more sedentary due to fear of falling muscle weakness Location diffusely 02/19/2015 None muscle weakness Quality lower extremities 02/19/2015 None muscle weakness Quality fatigue 02/19/2015 None muscle weakness Quality worsening 02/19/2015 None muscle weakness Quality clumsiness 02/19/2015 None muscle weakness Onset and Resolution ongoing 02/19/2015 None fatigue Quality worsening 11/13/2014 in September fatigue Quality low ener gy 11/13/2014 None muscle weakness Location diffusely 11/13/2014 None muscle weakness Quality intermittent 11/13/2014 None muscle weakness Quality fatigue 11/13/2014 None muscle weakness Onset and Resolution ongoing 11/13/2014 None otalgia Location on the right 09/27/2014 None otalgia Quality acute 09/27/2014 None otalgia Quality pressure 09/27/2014 None otalgia Quality uncomfor table 09/27/2014 None otalgia Onset of Symptom 2 weeks ago 09/27/2014 None dizziness Quality acute 09/27/2014 None dizziness Quality feelin gs of unsteadiness 09/27/2014 None dizziness Onset of Symptom 2 weeks ago 09/27/2014 None pain, limb Location on t he right lower leg 07/11/2014 None pain, limb Quality inter mittent 07/11/2014 None pain, limb Onset and Resolution ongoing 07/11/2014 None pain, limb Quality dull 07/11/2014 None pain, limb Onset of Symptom 2 weeks ago 07/11/2014 None pain, limb Quality worse kelly 07/11/2014 None pain, limb Quality acute 07/11/2014 None pain, limb Pertinent Findings Denies swelling 07/11/2014 None pain, limb Pertinent Findings Denies warmth 07/11/2014 None pain, limb Pertinent Findings muscle tenderness 07/11/2014 None pain, limb Pertinent Findings Denies focal weakness 07/11/2014 None pain, limb Pertinent Findings Denies erythema 07/11/2014 None chest pain/pressure Location in the substernal area 05/23/2014 None chest pain/pressure Radiating the back 05/23/2014 None chest pain/pressure Quality improving 05/23/2014 None back pain Location thora cic spine 05/23/2014 None back pain Quality improv ing 05/23/[address] able 03/20/2014 Monitoring BS daily and r anging 90-100's hyperglycemia Quality pr e-diabetic 03/20/2014 None hypertension Quality sta ble 03/20/2014 None hypertension Quality chr onic 03/20/2014 None hyperlipidemia Quality s table 03/20/2014 None sinusitis Location diffu sely 10/17/2013 None sinusitis Quality acute 10/17/2013 None sinusitis Quality fullne ss 10/17/2013 None sinusitis Onset of Symptom 2 days ago 10/17/2013 None cough Location in the th roat 10/17/2013 None cough Quality acute 10/17/2013 None cough Quality dry 10/17/2013 None cough Quality hacking 10/17/2013 None cough Onset of Symptom 2 weeks ago 10/17/2013 None otalgia Location on the right 10/17/2013 None otalgia Quality acute 10/17/2013 None otalgia Quality throbbing 10/17/2013 None otalgia Onset of Symptom 1 week ago 10/17/2013 None otalgia Quality pressure 10/17/2013 None dizziness Quality acute 10/17/2013 None dizziness Quality feelin gs of unsteadiness 10/17/2013 None dizziness Quality loss o f balance 10/17/2013 None dizziness Onset of Symptom 1 week ago 10/17/2013 None muscle weakness Quality lower extremities 09/24/2013 None muscle weakness Onset and Resolution ongoing 09/24/2013 Patient feels like it is related to amlodipine 2.5mg daily dizziness Quality sense of motion 09/24/2013 None dizziness Quality interm ittent 09/24/2013 Inner ear issues---using flonase BID cough Quality productive 05/31/2013 None back pain Location thora cic spine 05/31/2013 None back pain Quality aching 05/31/2013 None sinusitis Quality pain 05/31/2013 None sinusitis Quality purule nt 05/31/2013 None sinusitis Quality fullne ss 05/31/2013 None sinusitis Quality thick 05/31/2013 None sinusitis Quality pressu re 05/31/2013 None sinusitis Quality draina ge 05/31/2013 None sinusitis Onset and Resolution ongoing 05/31/2013 Has been taking fluticaso ne/claritin and also took leftover cefuroxime sinusitis Onset of Symptom 2 weeks ago 05/31/2013 None muscle weakness Quality lower extremities 05/31/2013 None hypertension Onset and Resolution ongoing 05/31/2013 None hypertension Onset of Symptom during adulthood 05/31/2013 None hypertension Quality imp roving 05/31/2013 None muscle weakness Location diffusely 05/31/2013 None muscle weakness Onset and Resolution ongoing 05/31/2013 None headache Location diffus clementine 03/26/2013 None headache Quality aching 03/26/2013 None headache Onset of Symptom 3 days ago 03/26/2013 None cough Location in the th roat 03/26/2013 None cough Quality acute 03/26/2013 None cough Quality productive 03/26/2013 Yellow sputum chest congestion Quality acute 03/26/2013 None chest congestion Quality painful 03/26/2013 None chest congestion Onset of Symptom 2 days ago 03/26/2013 None sore throat Location dif fusely 03/26/2013 None sore throat Quality achi ng 03/26/2013 None sore throat Onset of Symptom 2 days ago 03/26/2013 None cough Location in the th roat 12/19/2012 None cough Quality productive 12/19/2012 None chest congestion Quality thick/yellow secretions 12/19/2012 None chest congestion Onset of Symptom 2 days ago 12/19/2012 Has been taking flonase a nd claritin 1/2 tab daily myalgias Location diffus clementine 12/19/2012 None hypertension Onset of Symptom 3 days ago 11/27/2012 None hypertension Quality acu te 11/27/2012 None hypertension Blood Pressure Values Stage 2:SBP 160-179 mmHg / DBP 100-109 mmHg 11/27/2012 None headache Location in the occipital area 11/27/2012 None headache Quality aching 11/27/2012 None headache Onset of Symptom 3 days ago 11/27/2012 None lower leg pain Location on the right 11/27/2012 None headache Onset and Resolution resolved 11/27/2012 after got shot in ER anxiety Quality chronic 11/27/2012 None anxiety Onset and Resolution ongoing 11/27/2012 None dizziness Quality sense of room spinning 10/04/2012 None otalgia Location on the right 10/04/2012 None sinus pain Quality press ure 10/04/2012 None dizziness Onset of Symptom 1 weeks ago 10/04/2012 None headache Location diffus clementine 10/04/2012 None headache Quality acute 10/04/2012 None sinus pain Location diff usely 10/04/2012 None sinus pain Quality acute 10/04/2012 None follow up Illness sympto ms improved 07/27/2012 None otalgia Location on both sides 07/27/2012 None otalgia Quality stable 07/27/2012 None otalgia Onset and Resolution resolved 07/27/2012 wants rechecked to see if does have hole in eardrum otalgia Onset of Symptom 4 days ago 07/14/2012 None sore throat Location on the right 07/14/2012 None cough Quality dry 07/14/2012 None otalgia Location on the right 07/14/2012 hurts into throat, has tr ied ear drops, pain 7-8 on 10 scale breast complaint Location in the left upper inner quadrant 06/08/2012 None breast complaint Quality pain 06/08/2012 None breast complaint Onset of Symptom 1 days ago 06/08/2012 Hasn't had mammogram in m any years abdominal pain Location in the epigastric area 02/22/2012 None dyspepsia Quality heartb urn 02/22/2012 None dyspepsia Quality improv ing 02/22/2012 None dizziness Quality sense of room spinning 02/22/2012 None dizziness Onset of Symptom 4 days ago 02/22/2012 None otalgia Location on both sides 02/22/2012 None knee pain Location on matthias th knees 02/22/2012 None abdominal pain Quality i mproving 02/22/2012 None abdominal pain Quality i mproving 12/28/2011 None gas and bloating Quality improving 12/28/2011 None hypertension Quality sta ble 12/28/2011 None abdominal pain Location in the epigastric area 12/15/2011 None abdominal pain Onset and Resolution ongoing 12/15/2011 Has been taking omeprazol e 20mg BID with no relief gas and bloating Location diffusely 12/15/2011 None gas and bloating Quality intermittent 12/15/2011 None diarrhea Quality intermi ttent 12/15/2011 None nausea Quality intermitt ent 12/15/2011 None hypertension Quality sta ble 12/15/2011 None dizziness Quality lighth eadedness/faint 09/21/2011 None dizziness Quality shakin ess 09/21/2011 None dizziness Quality acute 09/21/2011 has had these episodes off and on past f ew months dizziness Quality consta nt 09/16/2011 None dizziness Quality lighth eadedness 09/16/2011 None dizziness Quality feelin gs of unsteadiness 09/16/2011 None dizziness Onset and Resolution sudden in onset 09/16/2011 None dizziness Onset of Symptom 1 days ago 09/16/2011 None dysuria Quality intermit tent 09/16/2011 None dysuria Quality aching 09/16/2011 None dysuria Onset and Resolution sudden in onset 09/16/2011 None dysuria Onset of Symptom 2 days ago 09/16/2011 None muscle weakness Location diffusely 09/13/2011 None dizziness Quality lighth eadedness/shakiness 09/13/2011 None headache Quality dull 09/13/2011 None headache Location on the back side of head 09/13/2011 None headache Frequency of Episodes daily 09/13/2011 None nausea Quality acute 09/13/2011 had episode Tuesday while was with troy hyman and he was having bloodwork and IV fluids done dizziness Quality acute 09/13/2011 episode recently when was with boyfriend at hospital leg pain/sciatica Location right leg sciatica 08/16/2011 None leg pain/sciatica Quality sharp pain 08/16/2011 None leg pain/sciatica Quality constant 08/16/2011 None leg pain/sciatica Onset and Resolution ongoing 08/16/2011 None leg pain/sciatica Onset of Symptom 2 weeks ago 08/16/2011 None leg pain/sciatica Limitation on Activities restricts weight bearing activity 08/16/2011 None leg pain/sciatica Limitation on Activities moderately limits activities 08/16/2011 None hip pain Location on the right 08/03/2011 None hip pain Quality sharp p ain 08/03/2011 None hip pain Quality radiati ng down leg 08/03/2011 None hip pain Onset and Resolution sudden in onset 08/03/2011 None hip pain Onset of Symptom 3 days ago 08/03/2011 None back pain Location in th e upper back area 07/26/2011 None back pain Quality sharp 07/26/2011 None back pain Quality pinchi ng 07/26/2011 None back pain Onset of Symptom 1 weeks ago 07/26/2011 None back pain Location lumba r-sacral spine 06/28/2011 None back pain Quality aching 06/28/2011 None back pain Quality sharp 06/28/2011 None back pain Quality radiat ing down right leg 06/28/2011 None back pain Onset of Symptom 1 weeks ago 06/28/2011 None pain, limb Location on t he right leg 06/28/2011 None muscle weakness Quality fatigue 03/31/2011 None muscle weakness Quality shakey 03/31/2011 None muscle weakness Onset of Symptom 2 weeks ago 03/31/2011 None arthralgia(s) Quality cr amping 03/31/2011 None fatigue Onset and Resolution ongoing 03/31/2011 None fatigue Quality worsening 03/31/2011 None fatigue Quality intermit tent 03/31/2011 None low blood pressure Onset and Resolution ongoing 03/31/2011 None arthralgia(s) Quality in termittent 03/31/2011 None otalgia Location on both sides 02/11/2011 None otalgia Quality constant 02/11/2011 None otalgia Quality throbbing 02/11/2011 None otalgia Onset and Resolution sudden in onset 02/11/2011 None otalgia Onset of Symptom _ weeks ago 02/11/2011 None otalgia Severity moderate 02/11/2011 None otalgia Frequency of Episodes increasing 02/11/2011 None sore throat Location on both sides 02/11/2011 None sore throat Quality cons tant 02/11/2011 None sore throat Quality achi ng 02/11/2011 None sore throat Quality scra tchy 02/11/2011 None sore throat Onset and Resolution sudden in onset 02/11/2011 None sore throat Onset of Symptom _ weeks ago 02/11/2011 None headache Location in the occipital area 02/11/2011 None headache Quality aching 02/11/2011 None headache Quality constant 02/11/2011 None headache Quality throbbi ng 02/11/2011 None headache Onset and Resolution sudden in onset 02/11/2011 None headache Onset of Symptom 1 weeks ago 02/11/2011 None headache Limitation on Activities moderately limits activities 02/11/2011 None headache Location in the frontal area 02/11/2011 None back pain Location thora cic spine 10/15/2010 None back pain Quality improv ing with vimovo 10/15/2010 None abdominal pain Quality i mproving 10/15/2010 None otalgia Location on the right 10/15/2010 None dizziness Quality sense of room spinning 10/15/2010 None dizziness Quality vertigo 10/15/2010 None dizziness Quality interm ittent 10/15/2010 None back pain Location thora cic spine 09/29/2010 None back pain Quality aching 09/29/2010 None otitis media Quality acu te 07/02/2010 None dizziness Quality acute 07/02/2010 None abdominal pain Quality i ntermittent 07/02/2010 None hip pain Location on the right 04/06/2010 None hip pain Quality improve d very little from last week 04/06/2010 None hip pain Quality worsene d with twisting 04/06/2010 None follow up Illness symptanisha ms improved 04/06/2010 but still having problems hip pain Quality constant 04/01/2010 None hip pain Onset of Symptom 8 hours ago 04/01/2010 noticed when woke up this morning hip pain Quality sharp p ain 04/01/2010 None hip pain Location on the right 04/01/2010 did walk on treadmill yes terday with no shoes hip pain Location in the buttocks 04/01/2010 None hip pain Location in the groin 04/01/2010 None low blood pressure Quality worsening 04/01/2010 None depression Onset and Resolution ongoing 04/01/2010 thinks needs lexapro dose increased fatigue Quality improving 12/02/2009 None muscle weakness Quality improving 12/02/2009 None follow up Illness symptanisha ms improved 12/02/2009 with Lexapro urinary urgency Onset and Resolution ongoing 12/02/2009 but improving with increa sed water intake follow up Illness symptanisha ms improved 10/21/2009 had weakness and shakes-- was busy week getting ready for granddaughter's wedding weakness Quality muscle weakness 10/21/2009 None dyskinesia or tremor Quality acute 10/21/2009 came on out of blue follow up Illness symptanisha ms remained unchanged 09/10/2009 still with fatigue, but did have few days of increased energy after B12 shot constipation Quality imp roving 09/10/2009 with stool softeners fatigue Onset and Resolution ongoing 09/10/2009 None gastroesophageal reflux Quality chronic 08/11/2009 with hiatal hernia and po ssible early Arreola's constipation Quality imp roving 08/11/2009 with stool softener and p robiotic--area in colon where couldn't get scope through melena Quality black 08/11/2009 at times prior to scopes fatigue Quality chronic 08/11/2009 on iron but not B12 weakness Quality general ized fatigue 06/09/2009 None weakness Quality decreas ed energy 06/09/2009 None follow up Reason Rosenda s check 06/09/2009 Having trouble with gener alized "shakiness" and overwhelming fatigue fatigue Onset of Symptom 1 months ago 06/09/2009 None fatigue Quality worsening 06/09/2009 None fatigue Limitation on Activities moderately limits activities 06/09/2009 Able to maintain household, but has several days in a row where fatigue is overwhelming. weakness Onset of Symptom 1 months ago 06/09/2009 None weakness Frequency of Episodes increasing 06/09/2009 None weakness Length of Episodes 2-3 days 06/09/2009 None weakness Limitation on Activities moderately limits activities 06/09/2009 None weakness Alleviating Factors rest 06/09/2009 None weakness Quality muscle weakness 06/09/2009 Bilat leg/knee weakness a nd feels shakey--xanax does help fatigue Quality chronic 06/09/2009 None weakness Onset and Resolution ongoing 06/09/2009 started after did 2days o f extenive house cleaning disturbances of emotion Quality chronic 06/09/2009 gets upset easily Advance Directives No Advance Directive data Encounters Encounter Performer Loca tion Codes Date ([id number]) OFFICE/OUTPA TIENT VISIT EST Diagnosis: Acute serous otitis media, left ear[ICD10: H65.02] Jennifer Rosario VIKKI BALL [employer] CPT-4: 43267 11/07/2018 ([id number]) OFFICE/OUTPA TIENT VISIT EST Diagnosis: Essential (primary) hypertension[ICD10: I10] Diagnosis: 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] Diagnosis: Hypoglycemia, unspecified[ICD10: E16.2] Diagnosis: Other fatigue[ICD10: R53.83] Diagnosis: Urinary tract infection, site not specified[ICD10: N39.0] Vikki GUAMAN [employer] CPT-4: 11401 08/14/2018 ([id number]) OFFICE/OUTPA TIENT VISIT EST Diagnosis: Essential (primary) hypertension[ICD10: I10] Diagnosis: Gastro-esophageal reflux disease without esophagitis[ICD10: K21.9] Diagnosis: Urinary tract infection, site not specified[ICD10: N39.0] Vikki GUAMAN DO [facility] CPT-4: 28099 05/10/2018 ([id number]) OFFICE/OUTPA TIENT VISIT EST Diagnosis: Gastro-esophageal reflux disease without esophagitis[ICD10: K21.9] Diagnosis: Epigastric pain[ICD10: R10.13] Vikki GUAMAN DO [facility] CPT-4: 46184 02/14/2018 ([id number]) OFFICE/OUTPA TIENT VISIT EST Diagnosis: 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] Diagnosis: Essential (primary) hypertension[ICD10: I10] Diagnosis: Generalized anxiety disorder[ICD10: F41.1] Diagnosis: Gastro-esophageal reflux disease without esophagitis[ICD10: K21.9] Vikki GUAMAN DO [facility] CPT-4: 79417 01/10/2018 OFFICE/OUTPATIENT SIT EST Diagnosis: Gastro-esophageal reflux disease without esophagitis[ICD10: K21.9] Diagnosis: Palpitations[ICD10: R00.2] Diagnosis: Urinary tract infection, site not specified[ICD10: N39.0] Diagnosis: Generalized anxiety disorder[ICD10: F41.1] Vikki MARTINEZ [employer] [facility] CPT-4: 87131 12/06/2017 ([id number]) NURSE/OUTPAT IENT VISIT EST Diagnosis: 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] Diagnosis: Hypoglycemia, unspecified[ICD10: E16.2] Diagnosis: Dizziness and giddiness[ICD10: R42] Diagnosis: Occlusion and stenosis of bilateral carotid arteries[ICD10: I65.23] Vikki GUAMAN DO [facility] CPT-4: [id number] 11/30/2017 OFFICE/OUTPATIENT SIT EST Diagnosis: Epigastric pain[ICD10: R10.13] Diagnosis: Generalized anxiety disorder[ICD10: F41.1] Diagnosis: FLU VACCINE[ICD10: Z23] Vikki GUAMAN DO [facility] CPT-4: 32408 11/22/2017 ([id number]) OFFICE/OUTPA TIENT VISIT EST Diagnosis: Essential (primary) hypertension[ICD10: I10] Diagnosis: Hypoglycemia, unspecified[ICD10: E16.2] Diagnosis: Gastro-esophageal reflux disease without esophagitis[ICD10: K21.9] Vikki GUAMAN [facility] CPT-4: 71103 10/20/2017 ([id number]) OFFICE/OUTPA TIENT VISIT EST Diagnosis: Dizziness and giddiness[ICD10: R42] Jennifer CID [facility] CPT-4: 05383 09/27/2017 ([id number]) OFFICE/OUTPA TIENT VISIT EST Diagnosis: Cervicalgia[ICD10: M54.2] Diagnosis: Other spondylosis with radiculopathy, cervical region[ICD10: M47.22] Vikki GUAMAN [facility] CPT-4: 75336 08/16/2017 ([id number]) OFFICE/OUTPA TIENT VISIT EST Diagnosis: Hypoglycemia, unspecified[ICD10: E16.2] Diagnosis: Other spondylosis with radiculopathy, cervical region[ICD10: M47.22] Diagnosis: Vertigo of central origin, 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] Diagnosis: 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] Vikki MARTINO [facility] CPT-4: 37034 07/07/2017 ([id number]) OFFICE/OUTPA TIENT VISIT EST Diagnosis: Benign paroxysmal vertigo, bilateral[ICD10: H81.13] Diagnosis: Otalgia, bilateral[ICD10: H92.03] Jennifer CID [facility] CPT-4: 28173 05/30/2017 ([id number]) OFFICE/OUTPA TIENT VISIT EST Diagnosis: Low back pain[ICD10: M54.5] Diagnosis: Radiculopathy, lumbosacral region[ICD10: M54.17] Diagnosis: Left lower quadrant pain[ICD10: R10.32] [facility] 14968 04/18/2017 ([id number]) OFFICE/OUTPA TIENT VISIT EST Diagnosis: FLU VACCINE[ICD10: Z23] Vikki GUAMAN [employer] [facility] CPT-4: 39794 12/10/2016 ([id number]) OFFICE/OUTPA TIENT VISIT EST Diagnosis: Mixed hyperlipidemia[ICD10: E78.2] Diagnosis: Essential (primary) hypertension[ICD10: I10] Diagnosis: 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] Diagnosis: Impaired fasting glucose[ICD10: R73.01] Diagnosis: Other fatigue[ICD10: R53.83] Vikki GUAMAN [employer] [facility] CPT-4: 18259 11/01/2016 ([id number]) OFFICE/OUTPA TIENT VISIT EST Diagnosis: Pain in thoracic spine[ICD10: M54.6] Diagnosis: Other intervertebral disc degeneration, 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] Vikki GUAMAN [employer] [facility] CPT-4: 95220 10/25/2016 ([id number]) OFFICE/OUTPA TIENT VISIT EST Diagnosis: Left lower quadrant pain[ICD10: R10.32] Diagnosis: Low back pain[ICD10: M54.5] Vikki GUAMAN [employer] [facility] CPT-4: 90931 09/20/2016 ([id number]) OFFICE/OUTPA TIENT VISIT EST Diagnosis: Mixed hyperlipidemia[ICD10: E78.2] Diagnosis: Essential (primary) hypertension[ICD10: I10] Diagnosis: Hypoglycemia, unspecified[ICD10: E16.2] Vikki MARTINEZ [employer] [facility] CPT-4: 68916 05/13/2016 ([id number]) OFFICE/OUTPA TIENT VISIT EST Diagnosis: Impaired fasting glucose[ICD10: R73.01] Diagnosis: Mastodynia[ICD10: N64.4] Diagnosis: Mixed hyperlipidemia[ICD10: E78.2] Diagnosis: Essential (primary) hypertension[ICD10: I10] Diagnosis: Other fatigue[ICD10: R53.83] Vikki GUAMAN [employer] [facility] CPT-4: 33733 05/12/2016 ([id number]) OFFICE/OUTPA TIENT VISIT EST Diagnosis: Acute upper respiratory infection, unspecified[ICD10: J06.9] Yue GUAMAN [facility] CPT-4: 69965 03/18/2016 ([id number]) OFFICE/OUTPA TIENT VISIT EST Diagnosis: Acute mastoiditis without complications, right ear[ICD10: H70.001] Vikki GUAMAN [facility] CPT-4: 90044 02/06/2016 ([id number]) OFFICE/OUTPA TIENT VISIT EST Diagnosis: FLU VACCINE[ICD10: Z23] Vikki GUAMAN [facility] CPT-4: 36049 12/12/2015 ([id number]) OFFICE/OUTPA TIENT VISIT EST Diagnosis: Mixed hyperlipidemia[ICD10: E78.2] Diagnosis: Essential (primary) hypertension[ICD10: I10] Diagnosis: 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] Diagnosis: Impaired fasting glucose[ICD10: R73.01] Vikki MARTINEZ [facility] CPT-4: 93377 11/25/2015 ([id number]) OFFICE/OUTPA TIENT VISIT EST Diagnosis: Constipation, unspecified[ICD10: K59.00] Vikki MARTINEZ [facility] CPT-4: 14272 08/26/2015 ([id number]) OFFICE/OUTPA TIENT VISIT EST Diagnosis: Essential (primary) hypertension[ICD10: I10] Diagnosis: Mixed hyperlipidemia[ICD10: E78.2] Diagnosis: Chronic kidney disease, stage 1[ICD10: N18.1] Vikki MARTINEZ [facility] CPT-4: 17420 05/21/2015 ([id number]) OFFICE/OUTPA TIENT VISIT EST Diagnosis: Muscle weakness (generalized)[ICD10: M62.81] Diagnosis: Dizziness and giddiness[ICD10: R42] Diagnosis: Essential (primary) hypertension[ICD10: I10] Diagnosis: History of falling[ICD10: Z91.81] Vikki MARTINEZ [facility] CPT-4: 76249 02/19/2015 ([id number]) OFFICE/OUTPA TIENT VISIT EST Diagnosis: FLU VACCINE[ICD10: Z23] Vikki GUAMAN [facility] CPT-4: 59304 12/20/2014 ([id number]) OFFICE/OUTPA TIENT VISIT EST Diagnosis: Acute renal failure[ICD9: 584.9] Diagnosis: POLYURIA[ICD9: 788.42] Vikki GUAMAN [facility] CPT-4: 67297 11/19/2014 ([id number]) OFFICE/OUTPA TIENT VISIT EST Diagnosis: HYPERLIPIDEMIA NEC/NOS[ICD9: 272.4] Diagnosis: HYPERTENSION[ICD9: 401.9] Diagnosis: CAD[ICD9: 414.00] Diagnosis: Hyperglycemia[ICD9: 790.29] Diagnosis: MALAISE AND FATIGUE[ICD9: 780.79] Vikki MARTINEZ [facility] CPT-4: 35941 11/14/2014 ([id number]) OFFICE/OUTPA TIENT VISIT EST Diagnosis: MALAISE AND FATIGUE[ICD9: 780.79] Diagnosis: HYPOGLYCEMIA[ICD9: 251.2] Diagnosis: Grieving[ICD9: 309.0] Diagnosis: ABDOMINAL PAIN[ICD9: 789.00] Vikki GUAMAN [facility] CPT-4: 96061 11/13/2014 OFFICE/OUTPATIENT SIT EST Diagnosis: CERUMEN IMPACTION[ICD9: 380.4] Diagnosis: EUSTACHIAN TUBE DYSFUNCTION[ICD9: 381.81] Jessenia Francis VIKKI S. Esther ELICIA [facility] CPT-4: 94876 09/27/2014 ([id number]) OFFICE/OUTPA TIENT VISIT EST Diagnosis: Leg pain[ICD9: 729.5] Diagnosis: SUPERFIC PHLEBITIS-LEG[ICD9: 451.0] Vikki MARTINEZ [facility] CPT-4: 98925 07/11/2014 ([id number]) OFFICE/OUTPA TIENT VISIT EST Diagnosis: Thoracic back pain[ICD9: 724.1] Diagnosis: SPASM OF MUSCLE[ICD9: 728.85] Vikki GUAMAN [facility] CPT-4: 47436 05/23/2014 ([id number]) OFFICE/OUTPA TIENT VISIT EST Diagnosis: DIZZINESS/VERTIGO[ICD9: 780.4] Diagnosis: Benign positional vertigo[ICD9: 386.11] Diagnosis: HYPERTENSION[ICD9: 401.9] Diagnosis: Suspicious nevus[ICD9: 238.2] Vikki GUAMAN [facility] CPT-4: 46890 03/20/2014 ([id number]) OFFICE/OUTPA TIENT VISIT EST Diagnosis: FLU VACCINE[ICD10: Z23] Vikki GUAMAN [facility] CPT-4: 91384 12/21/2013 OFFICE/OUTPATIENT SIT EST Diagnosis: SINUSITIS, ACUTE[ICD9: 461.9] Diagnosis: EUSTACHIAN TUBE DYSFUNCTION[ICD9: 381.81] Jessenia EcheverriaShemargarito RUBI [facility] CPT-4: 17910 10/17/2013 ([id number]) OFFICE/OUTPA TIENT VISIT EST Diagnosis: DIZZINESS/VERTIGO[ICD9: 780.4] Diagnosis: HYPERTENSION[ICD9: 401.9] Vikki GUAMAN [facility] CPT-4: 31816 09/24/2013 ([id number]) OFFICE/OUTPA TIENT VISIT EST Diagnosis: HYPERTENSION[ICD9: 401.9] Diagnosis: MALAISE AND FATIGUE[ICD9: 780.79] Diagnosis: SINUSITIS, ACUTE[ICD9: 461.9] Vikki GUAMAN [facility] CPT-4: 66137 05/31/2013 ([id number]) OFFICE/OUTPA TIENT VISIT EST Diagnosis: HYPERLIPIDEMIA NEC/NOS[ICD9: 272.4] Diagnosis: HYPERTENSION[ICD9: 401.9] Diagnosis: B12 DEFIC ANEMIA NEC[ICD9: 281.1] Diagnosis: HYPOGLYCEMIA[ICD9: 251.2] Vikki GUAMAN [facility] CPT-4: 42459 03/28/2013 OFFICE/OUTPATIENT SIT EST Diagnosis: COUGH[ICD9: 786.2] Jessenia EcheverriaAnthony GUAMAN [facility] CPT-4: 18134 03/26/2013 OFFICE/OUTPATIENT SIT EST Diagnosis: COUGH[ICD9: 786.2] Diagnosis: URI, ACUTE[ICD9: 465.9] Jessenia Penny [employer] [facility] CPT-4: 74470 12/19/2012 ([id number]) OFFICE/OUTPA TIENT VISIT EST Diagnosis: HYPERTENSION[ICD9: 401.9] Diagnosis: CEPHALGIA[ICD9: 784.0] Diagnosis: ANXIETY STATE NOS[ICD9: 300.00] Diagnosis: FLU VACCINE[ICD9: V04.81] Vikki GUAMAN [facility] CPT-4: 90034 11/27/2012 ([id number]) OFFICE/OUTPA TIENT VISIT EST Diagnosis: DIZZINESS/VERTIGO[ICD9: 780.4] Diagnosis: SINUSITIS, ACUTE[ICD9: 461.9] Diagnosis: Benign positional vertigo[ICD9: 386.11] Vikki MARTINEZ [facility] CPT-4: 62190 10/04/2012 OFFICE/OUTPATIENT SIT EST Diagnosis: OTITIS MEDIA NOS[ICD9: 382.9] Vikki GUAMAN [facility] CPT-4: 34459 07/27/2012 OFFICE/OUTPATIENT SIT EST Diagnosis: Perforation of ear drum[ICD9: 384.20] Diagnosis: SINUSITIS, ACUTE[ICD9: 461.9] Vikki GUAMAN [facility] CPT-4: 73354 07/14/2012 ([id number]) OFFICE/OUTPA TIENT VISIT EST Diagnosis: Mastalgia[ICD9: 611.71] Vikki GUAMAN [facility] CPT-4: 08996 06/08/2012 ([id number]) OFFICE/OUTPA TIENT VISIT EST Diagnosis: HYPERLIPIDEMIA NEC/NOS[ICD9: 272.4] Diagnosis: HYPERTENSION[ICD9: 401.9] Diagnosis: DIZZINESS/VERTIGO[ICD9: 780.4] Diagnosis: Hyperglycemia[ICD9: 790.29] Diagnosis: MALAISE AND FATIGUE[ICD9: 780.79] Vikki MARTINEZ [facility] CPT-4: 50436 02/23/2012 ([id number]) OFFICE/OUTPA TIENT VISIT EST Diagnosis: EUSTACHIAN TUBE DYSFUNCTION[ICD9: 381.81] Diagnosis: DIZZINESS/VERTIGO[ICD9: 780.4] Diagnosis: ABDOMINAL PAIN[ICD9: 789.00] Diagnosis: GERD[ICD9: 530.81] Diagnosis: CERUMEN IMPACTION[ICD9: 380.4] Vikki GUAMAN [facility] CPT-4: 83469 02/22/2012 OFFICE/OUTPATIENT SIT EST Diagnosis: ABDOMINAL PAIN[ICD9: 789.00] Diagnosis: DYSPEPSIA[ICD9: 536.8] Vikki GUAMAN [facility] CPT-4: 55532 12/28/2011 ([id number]) OFFICE/OUTPA TIENT VISIT EST Diagnosis: ABDOMINAL PAIN[ICD9: 789.00] Diagnosis: DYSPEPSIA[ICD9: 536.8] Diagnosis: IBS[ICD9: 564.1] Vikki GUAMAN [facility] CPT-4: 23540 12/15/2011 OFFICE/OUTPATIENT SIT EST Diagnosis: DIZZINESS/VERTIGO[ICD9: 780.4] Diagnosis: HYPOGLYCEMIA[ICD9: 251.2] Vikki GUAMAN [facility] CPT-4: 31086 09/21/2011 ([id number]) OFFICE/OUTPA TIENT VISIT EST Diagnosis: URINARY TRACT INFECTION[ICD9: 599.0] Vikki MARTINEZ [facility] CPT-4: 59254 09/16/2011 ([id number]) OFFICE/OUTPA TIENT VISIT EST Diagnosis: HYPERLIPIDEMIA NEC/NOS[ICD9: 272.4] Diagnosis: HYPERTENSION[ICD9: 401.9] Diagnosis: MALAISE AND FATIGUE[ICD9: 780.79] Diagnosis: DIZZINESS/VERTIGO[ICD9: 780.4] Vikki GUAMAN [facility] CPT-4: 30736 09/15/2011 ([id number]) OFFICE/OUTPA TIENT VISIT EST Diagnosis: DIZZINESS/VERTIGO[ICD9: 780.4] Diagnosis: MALAISE AND FATIGUE[ICD9: 780.79] Diagnosis: HYPERTENSION[ICD9: 401.9] Vikki GUAMAN [facility] CPT-4: 55646 09/13/2011 OFFICE/OUTPATIENT SIT EST Diagnosis: LUMB/LUMBOSAC DISC DEGEN[ICD9: 722.52] Diagnosis: Radiculopathy of leg[ICD9: 724.4] Diagnosis: 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] Diagnosis: SPINAL ENTHESOPATHY[ICD9: 720.1] Vikki GUAMAN DO [facility] CPT-4: 53934 08/16/2011 ([id number]) OFFICE/OUTPA TIENT VISIT EST Diagnosis: PAIN, LOWER BACK[ICD9: 724.2] Diagnosis: SPASM OF MUSCLE[ICD9: 728.85] Diagnosis: SCIATICA[ICD9: 724.3] Diagnosis: Lumbar degenerative disc disease[ICD9: 722.52] Vikki MARTINEZ [employer] [facility] CPT-4: 45313 08/03/2011 ([id number]) OFFICE/OUTPA TIENT VISIT EST Diagnosis: PAIN IN THORACIC SPINE[ICD9: 724.1] Diagnosis: SPASM OF MUSCLE[ICD9: 728.85] Vikki GUAMAN [employer] [facility] CPT-4: 55807 07/26/2011 ([id number]) OFFICE/OUTPA TIENT VISIT EST Diagnosis: PAIN, LOWER BACK[ICD9: 724.2] Diagnosis: SPASM OF MUSCLE[ICD9: 728.85] Diagnosis: Sacroiliac dysfunction[ICD9: 739.4] Diagnosis: Lumbar degenerative disc disease[ICD9: 722.52] Vikki MARTINEZ [employer] [facility] CPT-4: 85594 06/28/2011 OFFICE/OUTPATIENT SIT EST Diagnosis: MALAISE AND FATIGUE[ICD9: 780.79] Diagnosis: HYPOTENSION[ICD9: 458.9] Diagnosis: CAD[ICD9: 414.00] Vikki GUAMAN [employer] [facility] CPT-4: 23119 03/31/2011 OFFICE/OUTPATIENT SIT EST Diagnosis: SINUSITIS, ACUTE[ICD9: 461.9] Diagnosis: PHARYNGITIS, ACUTE[ICD9: 462] Diagnosis: CERUMEN IMPACTION[ICD9: 380.4] [facility] CPT-4: 32641 02/11/2011 OFFICE/OUTPATIENT SIT EST Diagnosis: PAIN IN THORACIC SPINE[ICD9: 724.1] Diagnosis: GERD[ICD9: 530.81] Diagnosis: DIZZINESS/VERTIGO[ICD9: 780.4] Vikki [facility] CPT-4: 31031 10/15/2010 OFFICE/OUTPATIENT SIT EST Vikki [facility] CPT-4: 14628 09/29/2010 ([id number]) OFFICE/OUTPA TIENT VISIT EST Vikki PIKE [facility] CPT-4: 48011 07/02/2010 ([id number]) OFFICE/OUTPA TIENT VISIT, EST Diagnosis: PAIN, LOWER BACK[ICD9: 724.2] Vikki [facility]KE [facility] CPT-4: 78755 04/06/2010 ([id number]) OFFICE/OUTPA TIENT VISIT, EST Vikki PIKE S. [facility] CPT-4: 03622 04/01/2010 ([id number]) OFFICE/OUTPA TIENT VISIT, EST Vikki PIKE S. [facility] CPT-4: 19300 01/22/2010 ([id number]) OFFICE/OUTPA TIENT VISIT, EST Vikki PIKE S. [facility] CPT-4: 50783 12/02/2009 ([id number]) OFFICE/OUTPA TIENT VISIT, EST Vikki PIKE S. [facility] CPT-4: 24258 10/21/2009 ([id number]) OFFICE/OUTPA TIENT VISIT, EST Vikki PIKE S. [facility] CPT-4: 08213 09/10/2009 ([id number]) OFFICE/OUTPA TIENT VISIT, BRYAN MARTINO [facility] CPT-4: 86479 08/11/2009 ([id number]) OFFICE/OUTPA TIENT VISIT, BRYAN MARTINO [facility] CPT-4: 67047 06/09/2009 Plan of Care Planned Activity Notes C odes Status Date Visit Diagnosis Plan: Acute serous otitis media, [...] ICD-10 : H65.02 11/07/2018 Appointment: Jennifer Rosario [address] [place], [place] [phone] ACUTE ILLNESS 11/07/2018 Visit Diagnosis Plan: Essential (primary) hypertension Discussion: Stable Check CMP ICD-9 : 401.9 ICD-10 : I10 08/14/2018 Visit Diagnosis Plan: Hypoglycemia, unspecified Discussion: Monitor BS At least 6 small meals a day each with protein ICD-9 : 251.2 ICD-10 : E16.2 08/14/2018 Visit Diagnosis Plan: Other fatigue Discussion: Check CBC, TSH ICD-9 : 780.79 ICD-10 : R53.83 08/14/2018 Visit Diagnosis Plan: Urinary tract infe ction, site not specified Discussion: Started an old abx prescript ion ICD-9 : 599.0 ICD-10 : N39.0 08/14/2018 Appointment: Vikki Guaman WPtel: [phone] [facility] FOLLOW UP 08/14/2018 Visit Diagnosis Plan: Urinary tract infe ction, site not specified Discussion: Macrobid 100mg po BID for [...] I10 05/10/2018 Appointment: Vikki Guaman WPtel: [address] [place], [place] [address] [place] FOLLOW UP 05/10/2018 Patient Education: metoprolol tartrate- [employer] C[employer]on [id number] [email or web address] Completed 05/10/2018 Appointment: Vikki Guaman WPtel: [facility] US CANCELED 04/21/2018 Visit Diagnosis Plan: Epigastric pain Discussion: Check CT abdomen/pelvis due to ongoing abdominal pain ICD-9 : 789.06 ICD-10 : R10.13 02/14/2018 Visit Diagnosis Plan: Gastro-esophageal reflux disease without esophagitis Discussion: Continue protonix and carafa te Proceed with updated EGD ICD-9 : 530.81 ICD-10 : K21.9 02/14/2018 Appointment: Vikki [facility]aman [facility]Ptel[facility] [facility] 02/14/2018 Care Plan: CT PELVIS W/O DYE LOINC : 70192-4 Pending 02/14/2018 Care Plan: CT ABDOMEN W/O DYE LOINC : 12127-6 Pending 02/14/2018 Care Plan: Referral Order SNOMED-CT : [id number] Pending 02/14/2018 Visit Diagnosis Plan: Generalized anxiety disorder Discussion: Stable ICD-9 : 300.00 ICD-10 : F41.1 01/10/2018 Visit Diagnosis Plan: Gastro-esophageal reflux disease without esophagitis Discussion: Continue protonix at BID dos ing and carafate BID Follow Up: 2 months ICD-9 : 530.81 ICD-10 : K21.9 01/10/2018 Visit Diagnosis Plan: Essential (primary) hypertension Discussion: Stable ICD-9 : 401.9 ICD-10 : I10 01/10/2018 Visit Diagnosis Plan: Atherosclerotic he art disease of [place] coronary artery without angina pectoris Discussion: S/P cardiac cath--doing medical management with imdur and metoprolol increased Has fwup with cardiology next week Discussed cardiac rehab ICD-9 : 414.00 ICD-10 : I25.10 01/10/2018 Appointment: Vikki Guaman WPtel: [address] [place], [place] [phone] FOLLOW UP 01/10/2018 Visit Diagnosis Plan: Gastro-esophageal reflux disease without esophagitis Discussion: Continue protonix at BID dos ing Continue carafate at q AC and HS dosing for 2 more weeks then decrease to BID dosing Follow Up: 4 weeks ICD-9 : 530.81 ICD-10 : K21.9 12/06/2017 Visit Diagnosis Plan: Generalized anxiety disorder Discussion: Increase xanax to BID dosing especially with upcoming cardiac testing which is already making patient more anxious and worried ICD-9 : 300.00 ICD-10 : F41.1 12/06/2017 Visit Diagnosis Plan: Palpitations D iscussion: Cardilology going to schedule Lexiscan ICD-9 : 785.1 ICD-10 : R00.2 12/06/2017 Visit Diagnosis Plan: Urinary tract infe ction, site not specified Discussion: Reculture urine ICD-9 : 599.0 ICD-10 : N39.0 12/06/2017 Appointment: Vikki Guaman WPtel: [address] [place], [place] [phone] FOLLOW UP 12/06/2017 Patient Education: Patient Medication Summary Completed 12/06/2017 Appointment: Vikki Guaman WPtel: [address] [place] [address] [place] LAB 11/30/2017 Patient Education: Patient Medication Summary Completed 11/30/2017 Visit Diagnosis Plan: Epigastric pain Discussion: Continue protonix and carafate but make into a slurry Flu shot given Discussed EGD if symptoms persist Follow Up: 2 weeks ICD-9 : 789.06 ICD-10 : R10.13 11/22/2017 Visit Diagnosis Plan: Generalized anxiety disorder Discussion: Did discuss increased risk of benzodiazepines causing dementia but at this time will stay at xanax 0.25mg po BID ICD-9 : 300.00 ICD-10 : F41.1 11/22/2017 Appointment: Vikki Guaman WPtel: [facility] FOLLOW UP 11/22/2017 Patient Education: Patient Medication Summary Completed 11/22/2017 Visit Diagnosis Plan: Essential (primary) hypertension Discussion: Has hydralazine to use prn per cardiology Going to do 30 day holter monitor ICD-9 : 401.9 ICD-10 : I10 10/20/2017 Visit Diagnosis Plan: Hypoglycemia, unspecified Discussion: 6 small meals a day--each with protein Increase fluid intake ICD-9 : 251.2 ICD-10 : E16.2 10/20/2017 Visit Diagnosis Plan: Gastro-esophageal reflux disease without esophagitis Discussion: Change to protonix 40mg po B ID Follow Up: 1 months ICD-9 : 530.81 ICD-10 : K21.9 10/20/2017 Appointment: Vikki Guaman WPtel: [facility] [address] ACUTE ILLNESS 10/20/2017 Patient Education: Patient Medication Summary Completed 10/20/2017 Visit Diagnosis Plan: Dizziness and giddiness Discussion: blood work to be completed in office including cmp, cbc, troponin to rule out glucose intolerance, infection, dehydration. instructed patient that she needs to see her medical laboratory technical officer sooner than oct and patient requested we contact dr. brown's office. will have front office make appt. patient has carotid doppler annually. ICD-9 : 780.4 ICD-10 : R42 09/27/2017 Appointment: Jennifer Rosario [address] [place] [address] ACUTE ILLNESS 09/27/2017 Patient Education: Patient Medication Summary Completed 09/27/2017 Visit Diagnosis Plan: Cervicalgia Di scussion: Complete course of PT since symptoms improved Continue stretching exercises Notify if symptoms return or worsen ICD-9 : 723.1 ICD-10 : M54.2 08/16/2017 Appointment: Vikki Guaman WPtel: [phone] [facility] FOLLOW UP 08/16/2017 Patient Education: Patient Medication Summary Completed 08/16/2017 Visit Diagnosis Plan: Hypoglycemia, unspecified Discussion: Eat something with protein every 2 hrs ICD-9 : 251.2 ICD-10 : E16.2 07/07/2017 Visit Diagnosis Plan: Other spondylosis with radiculopathy, cervical region Discussion: Check MRI of cervical spine ICD-9 : 721.0 ICD-10 : M47.22 07/07/2017 Visit Diagnosis Plan: Vertigo of central origin, bilat eral Discussion: Discussed PT for vestibular therapy ICD-9 : 386.2 ICD-10 : H81.43 07/07/2017 Appointment: Vikki Guaman WPtel: [phone] 07/07/2017 Patient Education: Patient Medication Summary Completed 07/07/2017 Care Plan: [facility] Pending 07/07/2017 Visit Diagnosis Plan: Otalgia, bilateral Discussion: kenalog 40 mg given to patient im. instructed [...] ICD-10 : H81.13 05/30/2017 Appointment: Jennifer Rosario [address] [place] [address] ACUTE ILLNESS 05/30/2017 Patient Education: Patient Medication Summary Completed 05/30/2017 Visit Diagnosis Plan: Left lower quadrant pain Discussion: Culture urine Notify if worsens ICD-9 : 789.04 ICD-10 : R10.32 04/18/2017 Visit Diagnosis Plan: Low back pain Discussion: Stretches Topical aspercreme Tylenol 1 po TID ICD-9 : 724.2 ICD-10 : M54.5 04/18/2017 Visit Diagnosis Plan: Radiculopathy, lumbosacral regio n Discussion: As above ICD-9 : 724.4 ICD-10 : M54.17 04/18/2017 Appointment: Vikki Guaman WPtel: [address] [place] [address] ACUTE ILLNESS 04/18/2017 Patient Education: Patient Medication Summary Completed 04/18/2017 Appointment: Vikki Guaman WPtel: [address] [place] [address] US INJECTION 12/10/2016 Patient Education: Patient Medication Summary Completed 12/10/2016 Appointment: Vikki Guaman WPtel: [address] [place] [address] LAB 11/01/2016 Patient Education: Patient Medication Summary Completed 11/01/2016 Visit Diagnosis Plan: Pain in thoracic spine Discussion: PT has helped Continue stretches and walking Discussed joining [facility] to continue exercise ICD-9 : 724.1 ICD-10 : M54.6 10/25/2016 Visit Diagnosis Plan: Other intervertebr al disc degeneration, lumbar region Follow Up: 3 months ICD-9 : 722.52 ICD-10 : M51.36 10/25/2016 Appointment: Vikki Guaman WPtel: [address] [place] [address] FOLLOW UP 10/25/2016 Patient Education: Patient Medication Summary Completed 10/25/2016 Visit Diagnosis Plan: Low back pain Discussion: Start PT for low back- Seems like abdominal pain is radiating from low back Follow Up: 5 weeks ICD-9 : 724.2 ICD-10 : M54.5 09/20/2016 Visit Diagnosis Plan: Left lower quadrant pain Discussion: Had CT scan of abdomen/pelvis in May 2016 and normal colonoscopy in December 2014 ICD-9 : 789.04 ICD-10 : R10.32 09/20/2016 Appointment: Vikik Guaman WPtel: [address] [place], [place] [id number] ACUTE ILLNESS 09/20/2016 Patient Education: Patient Medication Summary Completed 09/20/2016 Appointment: Vikki Guaman WPtel: [address] [place], [place] [phone] US LAB 05/13/2016 Patient Education: Patient Medication Summary Completed 05/13/2016 Visit Diagnosis Plan: Mixed hyperlipidemia Discussion: Check lipids ICD-9 : 272.4 ICD-10 : E78.2 05/12/2016 Visit Diagnosis Plan: Impaired fasting glucose Discussion: Return in AM for CMP, HbA1C Accuchecks daily Diet/Exercise discussed at length ICD-9 : 790.29 ICD-10 : R73.01 05/12/2016 Visit Diagnosis Plan: Other fatigue Discussion: Check CBC, TSH ICD-9 : 780.79 ICD-10 : R53.83 05/12/2016 Visit Diagnosis Plan: Mastodynia Dis cussion: Check Bilateral diagnostic mammogram with US ICD-9 : 611.71 ICD-10 : N64.4 05/12/2016 Appointment: Vikki Guaman WPtel: [address] [place], [place] [phone] 05/11 confirmed `sl ACUTE ILLNESS 05/12/2016 Patient Education: Patient Medication Summary Completed 05/12/2016 Care Plan: MAMMOGRAM SCREENING LOINC : 72035-2 Pending 05/12/2016 Visit Diagnosis Plan: Acute upper respir atory infection, unspecified Discussion: Exam is reassuring Likely vi ral illness Supportive care reviewed and encouraged Follow up PRN ICD-9 : 465.9 ICD-10 : J06.9 03/18/2016 Appointment: Yue Moya [address] [place], [place] [phone] ACUTE ILLNESS 03/18/2016 Patient Education: Patient Medication Summary Completed 03/18/2016 Visit Plan: Supportive care. Rest, Fluids, Tylenol/Motrin prn fever or bodyaches. Notify if worsening symptoms. 02/06/2016 Appointment: Vikki Guaman WPtel: [address] [place], [place] [phone] ACUTE ILLNESS 02/06/2016 Patient Education: Patient Medication Summary Completed 02/06/2016 Appointment: Vikki Guaman WPtel: [address] [place], [place] [phone] US INJECTION 12/12/2015 Patient Education: Patient Medication Summary Completed 12/12/2015 Appointment: Vikki Guaman WPtel: [address] [place], [place] [phone] LAB 11/25/2015 Patient Education: Patient Medication Summary Completed 11/25/2015 Visit Plan: Add miralax daily Use d aily probiotic and metamucil and push fluids Notify if worsens/persists 08/26/2015 Appointment: Vikki Guaman WPtel: [address] [place], [place] [phone] 08/25/15 confirmed ~sl ACUTE ILLNESS 08/26/2015 Patient Education: Patient Medication Summary Completed 08/26/2015 Visit Plan: No NSAIDs Kidney functi on discussed Discussed hydration Monitor lab every 4months so will check CMP, HbA1C next month 05/21/2015 Visit Plan: No NSAIDs Kidney functi on discussed Discussed hydration Monitor lab every 4months so will check CMP, HbA1C next month 05/21/2015 Appointment: Vikki Guaman WPtel: [address] [place], [place] [phone] 05/19 confirmed ~sl ACUTE ILLNESS 05/21/2015 Patient Education: Patient Medication Summary Completed 05/21/2015 Visit Plan: Vestibular exercises Re fill flonase Strict low Na diet--discussed that needs to read labels Rx for walker given Has carotids and abdominal aorta and legs checked in March Check Chem 7 02/19/2015 Visit Plan: Vestibular exercises Re fill flonase Strict low Na diet--discussed that needs to read labels Rx for walker with chair given due to muscle weakness/unsteadiness Has carotids and abdominal aorta and legs checked in March Check Chem 7 02/19/2015 Visit Plan: Vestibular exercises Re fill flonase Strict low Na diet--discussed that needs to read labels Rx for walker given Has carotids and abdominal aorta and legs checked in March Check Chem 7 02/19/2015 Visit Plan: Vestibular exercises Re fill flonase Strict low Na diet--discussed that needs to read labels Rx for walker with chair given due to muscle weakness/unsteadiness Has carotids and abdominal aorta and legs checked in March Check Chem 7 02/19/2015 Appointment: Vikki Guaman WPtel: [address] [place], [place] [phone] 02/18/15 appt confirmed cn FOLLOW UP 02/19/2015 Patient Education: Patient Medication Summary Completed 02/19/2015 Patient Education: Vertigo Completed 02/19/2015 Appointment: Vikki Guaman WPtel: [address] [place], [place] [phone] [place] INJECTION 12/20/2014 Patient Education: Patient Medication Summary Completed 12/20/2014 Appointment: Vikki Guaman WPtel: [address] [place], [place] [phone] UA 11/19/2014 Patient Education: Patient Medication Summary Completed 11/19/2014 Referral: Edy Cheek WPtel: #[address] [facility] [address] Referral Completed 11/18/2014 Appointment: Vikki Guaman WPtel: [address] [place], [place] [phone] LAB 11/14/2014 Patient Education: Patient Medication Summary Completed 11/14/2014 Visit Plan: Check CMP, CBC, TSH, Fr ee T4, B12, Lipids, HbA1C Discussed 6 small meals a day each with protein Would likely benefit from antidepressant Update colonoscopy 11/13/2014 Appointment: Vikki Guaman WPtel: [address] [place], [place] [phone] 11/12/14 confirmed ACUTE ILLNESS 11/13/2014 Patient Education: Patient Medication Summary Completed 11/13/2014 Visit Plan: Cerumen flush with warm water and peroxide - good results Resume Nasonex nasal spray daily Recommended Debrox earwax removal drops 09/27/2014 Visit Plan: Cerumen flush with warm water and peroxide - good results Resume Nasonex nasal spray daily Recommended Debrox earwax removal drops 09/27/2014 Appointment: Jessenia Francis WPtel: [address] [place] [address] ACUTE ILLNESS 09/27/2014 Patient Education: Patient Medication Summary Completed 09/27/2014 Visit Plan: Continue aspirin daily Add meloxicam for 1week Elevate and Ice Call on Tuesday07/11/2014 Appointment: Vikki Guaman WPtel: [address] [place] [address] ACUTE ILLNESS 07/11/2014 Patient Education: Patient Medication Summary Completed 07/11/2014 Visit Plan: Been using baclofen at bedtime and has helped some PT for next 2-4weeks 05/23/2014 Appointment: Vikki Guaman WPtel: [address] [place] [address] Hospital Follow Up 05/23/2014 Patient Education: Patient Medication Summary Completed 05/23/2014 Appointment: Vikki Guaman WPtel: [address] [place] [address] LAB 05/10/2014 Appointment: Vikki Guaman WPtel: [address] [place] [address] feeling better, weather - FOLLOW UP 04/24/2014 Referral: Edy Cheek WPtel: [address] [facility] [address] Referral Appointment Requested 04/03/2014 Visit Plan: Continue exercise and c urrent meds See surgery for removal of right arm lesion 03/20/2014 Appointment: Vikki Guaman WPtel: [address] [place] [address] FOLLOW UP 03/20/2014 Patient Education: Patient Medication Summary Completed 03/20/2014 Appointment: Vikki Guaman WPtel: [address] [place] [address] [place] INJECTION 12/21/2013 Patient Education: Patient Medication Summary Completed 12/21/2013 Visit Plan: Resume Claritin PO yesi y May take Ibuprofen PM at night for sleep Continue Flonase 2 sprays each nostril bid Complete prednisone 20 mg PO bid 10/17/2013 Appointment: Jessenia Francis WPtel: [address] [place], [place] [phone] ACUTE ILLNESS 10/17/2013 Patient Education: Patient Medication Summary Completed 10/17/2013 Visit Plan: Discussed that likely l umbar etiology for leg weakness Will change amlodopine to low dose dyazide and see if helps legs and inner ear 09/24/2013 Appointment: Vikki Guaman WPtel: [address] [place], [place] [phone] FOLLOW UP 09/24/2013 Patient Education: Patient Medication Summary Completed 09/24/2013 Visit Plan: Ceftin and continue cla ritin/flonase Decrease amlodopine to 2.5mg q HS until fwup with Card due to weakness 05/31/2013 Appointment: Vikki Guaman WPtel: [address] [place], [place] [phone] ACUTE ILLNESS 05/31/2013 Patient Education: Patient Medication Summary Completed 05/31/2013 Appointment: Vikki Guaman WPtel: [address] [place], [place] [phone] LAB 03/28/2013 Patient Education: Patient Medication Summary Completed 03/28/2013 Visit Plan: States she is having he r carotids "done" this Tuesday03/28/13 Return this week for fasting labs. CBC, CMP, TSH Free T4, Lipid Panel and HgbA1C. 03/26/2013 Appointment: Jessenia Francis WPtel: [address] [place], [place] [phone] ACUTE ILLNESS 03/26/2013 Patient Education: Patient Medication Summary Completed 03/26/2013 Visit Plan: Supportive care. Rest, Fluids, Tylenol prn fever or bodyaches. Notify if worsening symptoms. Ceftin 12/19/2012 Appointment: Jessenia Francis WPtel: [address] [place], [place] [phone] ACUTE ILLNESS 12/19/2012 Patient Education: Patient Medication Summary Completed 12/19/2012 Appointment: Vikki Guaman WPtel: [address] [place], [place] [phone] BP CHECK 12/04/2012 Patient Education: Patient Medication Summary Completed 12/04/2012 Visit Plan: Continue increased dose of metoprolol Moniter BP at home BP check in 1wk Xanax refill to use prn 11/27/2012 Visit Plan: Continue increased dose of metoprolol Moniter BP at home BP check in 1wk 11/27/2012 Appointment: Vikki Guaman WPtel: [address] [place], [place] [phone] ER Follow UP 11/27/2012 Patient Education: Patient Medication Summary Completed 11/27/2012 Visit Plan: Restart flonase BID Use meclizine 25mg q HS Vestibular exercises Claritin 10mg q AM See ENT if doesn't resolve 10/04/2012 Appointment: Vikki Guaman WPtel: [address] [place] [address] ACUTE ILLNESS 10/04/2012 Patient Education: Patient Medication Summary Completed 10/04/2012 Visit Plan: Will continue to observ e 07/27/2012 Appointment: Vikki Guaman WPtel: [address] [place], [place] [phone] FOLLOW UP 07/27/2012 Patient Education: Patient [...] ear recheck. 07/14/2012 Appointment: Evelyn Santos WPtel: [address] [place], [place] [id number] ACUTE ILLNESS 07/14/2012 Patient Education: Patient Medication Summary Completed 07/14/2012 Visit Plan: Decrease caffeine intak e Check Bilateral Mammogram with US of left breast 06/08/2012 Appointment: Vikki Guaman WPtel: [address] [place], [place] [phone] ACUTE ILLNESS 06/08/2012 Patient Education: Patient Medication Summary Completed 06/08/2012 Appointment: Alisia Campbell WPtel: [address] [place], [place] [phone] appt scheduled 04/06 ACUTE ILLNESS 04/10/2012 Appointment: Vikki Guaman WPtel: [address] [place], [place] [phone] [place] LAB 02/23/2012 Patient Education: Patient Medication Summary Completed 02/23/2012 Visit Plan: Continue off carafate a nd see how does Continue probiotic Add Vestibular exercises and use meclizine prn Continue Nasonex 02/22/2012 Visit Plan: Continue off carafate a nd see how does Continue probiotic Add Vestibular exercises and use meclizine prn Continue Nasonex Check fasting lab including CMP, Lipids, CBC, TSH, Free T4, HbA1C 02/22/2012 Appointment: Vikki Guaman WPtel: [address] [place], [place] [phone] FOLLOW UP 02/22/2012 Patient Education: Patient Medication Summary Completed 02/22/2012 Visit Plan: Continue carafate for 4 more weeks at current dose then decrease to BID for 2wks then q HS 12/28/2011 Appointment: Vikki Guaman WPtel: [address] [place], [place] [phone] [place] FOLLOW UP 12/28/2011 Patient Education: Patient Medication Summary Completed 12/28/2011 Visit Plan: Continue omeprazole Add Carafate 1gm po q AC Add daily probiotic 12/15/2011 Appointment: Vikki Guaman WPtel: [address] [place] [address] ACUTE ILLNESS 12/15/2011 Patient Education: Patient Medication Summary Completed 12/15/2011 Appointment: Vikki Guaman WPtel: [address] [place] [address] INJECTION 12/02/2011 Patient Education: Patient Medication Summary Completed 12/02/2011 Visit Plan: Diabetic Diet Accucheck s BID alternating times Hold onglyza and Januvia for now and continue diet and exercise and weight loss and lana BS Discussed hypoglycemia and snack of peanut butter and crackers with juice or milk 09/21/2011 Appointment: Vikki Guaman WPtel: [address] [place] [address] WORK IN 09/21/2011 Patient Education: Patient Medication Summary Completed 09/21/2011 Appointment: Vikki Guaman WPtel: [address] [place] [address] UA 09/16/2011 Patient Education: Patient Medication Summary Completed 09/16/2011 Appointment: Vikki Guaman WPtel: [address] [place] [address] LAB 09/15/2011 Patient Education: Patient Medication Summary Completed 09/15/2011 Visit Plan: Fasting lab to check CM P, Lipids, CBC, TSH, Free T4, HbA1C, Insulin level Hold Zocor for next 2wks 09/13/2011 Appointment: Vikki Guaman WPtel: [address] [place] [address] ACUTE ILLNESS 09/13/2011 Patient Education: Patient Medication Summary Completed 09/13/2011 Visit Plan: Injection to Right SI j oint as above Pt will call in 3 days on pain Has PT starting in 2wks. 08/16/2011 Appointment: Vikki Guaman WPtel: [address] [place] [address] ACUTE ILLNESS 08/16/2011 Patient Education: Patient Medication Summary Completed 08/16/2011 Visit Plan: OMT done Start PT May n eed updated MRI if need to consider epidural Prednisone 08/03/2011 Appointment: Vikki Guamantel: [address] [place] [address] OMT 08/03/2011 Patient Education: Patient Medication Summary Completed 08/03/2011 Visit Plan: Flexeril and Vimovo OMT done Daily stretches 07/26/2011 Appointment: Vikki Guaman WPtel: [address] [place] [address] ACUTE ILLNESS 07/26/2011 Patient Education: Patient Medication Summary Completed 07/26/2011 Visit Plan: OMT done Daily stretche s Moist heat or biofreeze Right SI joint injection Call in 1week Vimovo BID 06/28/2011 Appointment: Vikki Guaman WPtel: [address] [place] [address] ACUTE ILLNESS 06/28/2011 Patient Education: Patient Medication Summary Completed 06/28/2011 Appointment: Vikki Guaman WPtel: [address] [place] [address] LAB 04/01/2011 Patient Education: Patient Medication Summary Completed 04/01/2011 Visit Plan: Decrease amlodopine to 1.25mg daily Schedule with Cardiology Fasting lab in AM 03/31/2011 Appointment: Vikki Guaman WPtel: [address] [place] [address] ACUTE ILLNESS 03/31/2011 Patient Education: Patient Medication Summary Completed 03/31/2011 Visit Plan: Saline nasal flushes pr n. Tylenol/Motrin prn headache. Notify if persists/symptoms worsening. Cerumen removal from ears as above 02/11/2011 Appointment: Vikki Guaman WPtel: [address] [place] [address] ACUTE ILLNESS 02/11/2011 Patient Education: Patient Medication Summary Completed 02/11/2011 Appointment: Vikki Guaman WPtel: [address] [place], [place] [phone] [place] INJECTION 12/09/2010 Patient Education: Patient Medication Summary Completed 12/09/2010 Visit Plan: Continue vimovo for 1mo re week Increase Omeprazole to BID for 1mo then resume QD if stomach improved Vestibular exercises with meclizine q HS for next week 10/15/2010 Appointment: Vikki Guaman WPtel: [address] [place], [place] [address] FOLLOW UP 10/15/2010 Patient Education: Patient Medication Summary Completed 10/15/2010 Visit Plan: Trial of Vimovo 50/200m g po BID Check UA 09/29/2010 Appointment: Vikki Guaman WPtel: [address] [place] [address] ACUTE ILLNESS 09/29/2010 Patient Education: Patient Medication Summary Completed 09/29/2010 Appointment: Vikki Guaman WPtel: [address] [place], [place] [phone] LAB 07/06/2010 Patient Education: Patient Medication Summary Completed 07/06/2010 Visit Plan: Saline nasal flushes pr n. Tylenol/Motrin prn headache. Notify if persists/symptoms worsening. Add Veramyst Increase Omeprazole to 20mg po BID 07/02/2010 Appointment: Vikki Guaman WPtel: [address] [place] [address] ACUTE ILLNESS 07/02/2010 Patient Education: Patient Medication Summary Completed 07/02/2010 Visit Plan: Injection to right SI j oint as above Continue Vimovo Daily stretches Pt will call at end of week to let us know how back is doing 04/06/2010 Appointment: Vikki Guaman WPtel: [address] [place], [place] [phone] FOLLOW UP 04/06/2010 Patient Education: Patient Medication Summary Completed 04/06/2010 Visit Plan: Toradol 30mg IM now x1 Vimovo 200/50 po BID Decrease Norvasc to 1/2 tablet daily Increase Lexaprol to 10mg QD 04/01/2010 Appointment: Vikki Guaman WPtel: [address] [place] [address] ACUTE ILLNESS 04/01/2010 Patient Education: Patient Medication Summary Completed 04/01/2010 Visit Plan: Nasocourt sample given. Pt. will notify if symptoms are worse on Tuesday. 01/22/2010 Appointment: Alisia Campbell WPtel: [address] [place] [address] ACUTE ILLNESS 01/22/2010 Patient Education: Patient Medication Summary Completed 01/22/2010 Appointment: Vikki Guaman WPtel: [address] [place] [address] [place] INJECTION 12/10/2009 Patient Education: Patient Medication Summary Completed 12/10/2009 Visit Plan: Cipro for UTI Cont Chaparro pro at 5mg QD Flu shot next week 12/02/2009 Appointment: Vikki Guaman WPtel: [address] [place] [address] FOLLOW UP 12/02/2009 Patient Education: Patient Medication Summary Completed 12/02/2009 Patient Education: Lexapro Completed 12/02/2009 Visit Plan: May proceed with hiatal hernia repair per Card. so will contact Dr. Mariscal's office to proceed with surgery Trial of Lexapro 5mg QD plus use xanax prn 10/21/2009 Visit Plan: May proceed with hiatal hernia repair per Card. so will contact Dr. Mariscal's office to proceed with surgery 10/21/2009 Appointment: Vikki Guaman WPtel: [address] [place], [place] [phone] [place] FOLLOW UP 10/21/2009 Patient Education: Patient Medication Summary Completed 10/21/2009 Visit Plan: B12 given Cont oral B12 and iron Fwup 1mo for B12 Proceed with hiatal hernia repair once card clearance 09/10/2009 Appointment: Vikki Guaman WPtel: [address] [place], [place] [phone] [place] FOLLOW UP 09/10/2009 Patient Education: Patient Medication Summary Completed 09/10/2009 Visit Plan: No caffeine, no nicotin e, no mints, no late meals, elevate HOB 30 degrees Cont. with Nexium See Card to discuss Hiatal Hernia Repair B12 given 08/11/2009 Appointment: Vikki Guaman WPtel: [address] [place], [place] [phone] FOLLOW UP 08/11/2009 Patient Education: Patient Medication Summary Completed 08/11/2009 Appointment: Vikki Guaman WPtel: [address] [place], [place] [phone] [place] LAB 06/10/2009 Patient Education: Patient Medication Summary Completed 06/10/2009 Visit Plan: Check fasting lab in AM --CMP,Lipids, CBC, Vit D, TSH,FreeT4, B12 06/09/2009 Appointment: Vikki Guaman WPtel: [address] [place], [place] [phone] FOLLOW UP 06/09/2009 Patient Education: Patient Medication Summary Completed 06/09/2009 Referral: Edy Cheek WPtel: #1 [facility] Referral Appointment Requested Referral: Edy Cheek WPtel: #[address] Referral Initiated Instructions Comment . Add miralax daily Use daily probiotic and metamucil and push fluids Notify if worsens/persists . Continue aspirin d aily Add meloxicam for 1week Elevate and Ice Call on Tuesday . Continue omeprazol e Add Carafate 1gm po q AC Add daily probiotic . States she is havi ng her carotids "done" this Tuesday03/28/13 Return this week for fasting labs. CBC, CMP, TSH Free T4, Lipid Panel and HgbA1C. . B12 given Cont oral B12 and iron Fwup 1mo for B12 Proceed with hiatal hernia repair once card clearance . Saline nasal flus hes prn. Tylenol/Motrin prn headache. Notify if persists/symptoms worsening. Cerumen removal from ears as above . Been using baclofe n at bedtime and has helped some PT for next 2-4weeks . Check fasting lab in AM--CMP,Lipids, CBC, Vit D, TSH,FreeT4, B12 . Cipro for UTI Cont Lexapro at 5mg QD Flu shot next week . ERx for Augmentin 875mg q12 x 10 days and Floxin otic drops 5 gtts AD x7days Sample of Nasonex per pt request Discussed treatment (nasal saline, salt water gargles, keeping right ear clean and dry, for worsening go to UC on weekend, Tylenol/ibuprofen, etc.) RTC 2 weeks for ear recheck. . Continue increased dose of metoprolol Moniter BP at home BP check in 1wk Xanax refill to use prn . Continue increased dose of metoprolol Moniter BP at home BP check in 1wk . Restart flonase BI D Use meclizine 25mg q HS Vestibular exercises Claritin 10mg q AM See ENT if doesn't resolve Right SI joint clean sed with alchohol and betadine and injected with 3cc 1% lidocaine with 40mg depomedrol and 40mg kenalog, tolerated well with no complications, neosporin and bandage applied. OMT done Daily stretches Moist heat or biofreeze Right SI joint injection Call in 1week Vimovo BID . Fasting lab to bharat ck CMP, Lipids, CBC, TSH, Free T4, HbA1C, Insulin level Hold Zocor for next 2wks . Discussed that lik clementine lumbar etiology for leg weakness Will change amlodopine to low dose dyazide and see if helps legs and inner ear . Will continue to o bserve . May proceed with h iatal hernia repair per Card. so will contact Dr. Mariscal's office to proceed with surgery Trial of Lexapro 5mg QD plus use xanax prn . May proceed with h iatal hernia repair per Card. so will contact Dr. Mariscal's office to proceed with surgery . OMT done Start PT May need updated MRI if need to consider epidural Prednisone . Toradol 30mg IM no w x1 Vimovo 200/50 po BID Decrease Norvasc to 1/2 tablet daily Increase Lexaprol to 10mg QD . Decrease amlodopin e to 1.25mg daily Schedule with Cardiology Fasting lab in AM . Resume Claritin PO daily May take Ibuprofen PM at night for sleep Continue Flonase 2 sprays each nostril bid Complete prednisone 20 mg PO bid . Continue exercise and current meds See surgery for removal of right arm lesion . Saline nasal flush es prn. Tylenol/Motrin prn headache. Notify if persists/symptoms worsening. Add Veramyst Increase Omeprazole to 20mg po BID . Nasocourt sample fadumo coombs. Pt. will notify if symptoms are worse on Tuesday. . No NSAIDs Kidney function discussed Discussed hydration Monitor lab every 4months so will check CMP, HbA1C next month . No NSAIDs Kidney function discussed Discussed hydration Monitor lab every 4months so will check CMP, HbA1C next month . Vestibular exercis es Refill flonase Strict low Na diet--discussed that needs to read labels Rx for walker given Has carotids and abdominal aorta and legs checked in March Check Chem 7 . Vestibular exercis es Refill flonase Strict low Na diet--discussed that needs to read labels Rx for walker with chair given due to muscle weakness/unsteadiness Has carotids and abdominal aorta and legs checked in March Check Chem 7 . Vestibular exercis es Refill flonase Strict low Na diet--discussed that needs to read labels Rx for walker given Has carotids and abdominal aorta and legs checked in March Check Chem 7 . Vestibular exercis es Refill flonase Strict low Na diet--discussed that needs to read labels Rx for walker with chair given due to muscle weakness/unsteadiness Has carotids and abdominal aorta and legs checked in March Check Chem 7 . Injection to right SI joint as above Continue Vimovo Daily stretches Pt will call at end of week to let us know how back is doing . Cerumen flush with warm water and peroxide - good results Resume Nasonex nasal spray daily Recommended Debrox earwax removal drops . Continue vimovo fo r 1more week Increase Omeprazole to BID for 1mo then resume QD if stomach improved Vestibular exercises with meclizine q HS for next week . Diabetic Diet Accuchecks BID alternating times Hold onglyza and Januvia for now and continue diet and exercise and weight loss and moniter BS Discussed hypoglycemia and snack of peanut butter and crackers with juice or milk . Continue off caraf ate and see how does Continue probiotic Add Vestibular exercises and use meclizine prn Continue Nasonex Left ear flushed wit h warm water and peroxide with ear syringe and then last removed with currette--peroxide drops instilled. Tolerated well, no complications, TM intact.. Continue off carafate and see how does Continue probiotic Add Vestibular exercises and use meclizine prn Continue Nasonex Check fasting lab including CMP, Lipids, CBC, TSH, Free T4, HbA1C . Supportive care. Rest, Fluids, Tylenol/Motrin prn fever or bodyaches. Notify if worsening symptoms. . Continue carafate for 4more weeks at current dose then decrease to BID for 2wks then q HS . Decrease caffeine intake Check Bilateral Mammogram with US of left breast . Trial of Vimovo 50 /200mg po BID Check UA . Flexeril and Vimov o OMT done Daily stretches . Cerumen flush with warm water and peroxide - good results Resume Nasonex nasal spray daily Recommended Debrox earwax removal drops . No caffeine, no ni cotine, no mints, no late meals, elevate HOB 30 degrees Cont. with Nexium See Card to discuss Hiatal Hernia Repair B12 given . Supportive care. Rest, Fluids, Tylenol prn fever or bodyaches. Notify if worsening symptoms. Ceftin . Ceftin and continu e claritin/flonase Decrease amlodopine to 2.5mg q HS until fwup with Card due to weakness . Check CMP, CBC, TS H, Free T4, B12, Lipids, HbA1C Discussed 6 small meals a day each with protein Would likely benefit from antidepressant Update colonoscopy Informed Consent obt ainded. Right SI joint cleansed with alcohol and betadine and injected with 3cc 1%l lidocaine with 40mg depomedrol and 40mg kenalog, tolerated well with no complications, neosporin and bandage applied. Injection to Right SI joint as above Pt will call in 3 days on pain Has PT starting in 2wks.
--- OUTSIDE RECORDS SUMMARY | 2019-04-25 20:47 | XMS REPORT | CCD ---
Author Author Evelyne Guaman D.O. Organization [facility]KK[facility]AN DO [facility] Address [address] [place] [address] Phone Care Team Providers Care Presser Automatic Name Role Phone Vikki Guaman D.O. PP Unavailable CCM Unavailable Summary Purpose Interface Exchange Insurance Providers Payer name Policy type / Coverage type Covered constitution party ID Effective Begin Date Effective End Date WPS MEDICARE PART B [place] Medicare Part B [id number] 2017 Unknown [facility]na [facility] Medicare Part B [id number] Unknown Family history Father Diagnosis Age At Onset Heart disease Unknown Mother Diagnosis Age At Onset Heart disease Unknown Cancer Unknown Social History Social History Element Codes Description Effective Dates Tobacco history SNOMED CT: 846525683 Never smoker 09/29/2010 Marital status Unknown S [...] 11/22/2017 Unknown 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 [...] 11/22/2017 Active 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 [...] Date Stop Date Sta tus Fill Instructions omeprazole 40 mg cap steven,delayed release RxNorm: 062909 1 Capsule(s) PO QD 11/13/2018 12/12/2018 Ac tive Flonase Allergy Reli ef 50 mcg/actuation nasal spray,suspension RxNorm: 3782726 2 Baring NASAL QHS 11/07/2018 No Stop Date Active simvastatin 40 mg ta blet RxNorm: 510240 1 Tablet(s) PO QD 10/23/2018 01/20/2019 Active simvastatin 40 mg ta blet RxNorm: 990746 1 Tablet(s) PO QD 07/24/2018 10/21/2018 Inactive omeprazole 40 mg cap steven,delayed release RxNorm: 114266 1 Capsule(s) PO QD 07/13/2018 11/09/2018 In active simvastatin 40 mg ta blet RxNorm: 508233 1 Tablet(s) PO QD 06/13/2018 07/12/2018 Inactive omeprazole 40 mg cap steven,delayed release RxNorm: 947481 1 Capsule(s) PO QD 06/13/2018 07/12/2018 In active Bactrim DS 800 mg-16 0 mg tablet RxNorm: 652192 1 Tablet(s) PO BID 05/12/2018 05/18/2018 Inactive Bactrim DS 800 mg-16 0 mg tablet RxNorm: 620561 1 Tablet(s) PO BID 05/12/2018 05/11/2018 Inactive metoprolol tartrate 25 mg tablet RxNorm: 401677 1 Tablet(s) PO BID 05/10/2018 11/05/2018 Inactive Macrobid 100 mg capsule RxNorm: 687284 1 Capsule(s) PO BID 05/10/2018 05/16/2018 Inactive Xanax 0.25 mg tablet RxNorm: 255418 TAKE 1 TABLET BY MOUTH TWICE DAILY 02/16/2018 No Stop Date Active Xanax 0.25 mg tablet RxNorm: 915042 1 Tablet(s) PO BID 02/14/2018 02/16/2018 Inactive Protonix 40 mg table t,delayed release RxNorm: 025984 1 Tablet(s) PO BID fo r stomach--replaces omeprazole 01/10/2018 05/09/2018 Inactive Carafate 1 gram tablet RxNorm: 052073 1 Tablet(s) PO AC & HS 01/10/2018 05/09/2018 Inactive Xanax 0.25 mg tablet RxNorm: 359591 1 Tablet(s) PO BID 01/03/2018 02/13/2018 Inactive Bactrim DS 800 mg-16 0 mg tablet RxNorm: 109608 1 Tablet(s) PO BID 12/08/2017 12/12/2017 Inactive Bactrim DS 800 mg-16 0 mg tablet RxNorm: 190377 1 Tablet(s) PO BID 12/08/2017 12/07/2017 Inactive Carafate 1 gram tablet RxNorm: 837213 1 Tablet(s) PO AC & HS 11/22/2017 12/21/2017 Inactive Protonix 40 mg table t,delayed release RxNorm: 749720 1 Tablet(s) PO BID fo r stomach--replaces omeprazole 11/22/2017 01/09/2018 Inactive Protonix 40 mg table t,delayed release RxNorm: 141888 1 Tablet(s) PO BID fo r stomach--replaces omeprazole 10/20/2017 11/21/2017 Inactive fluticasone 50 mcg/a ctuation nasal spray,suspension RxNorm: 6544623 2 [place] NASAL QD to each nostril 07/07/2017 08/13/2018 Inactive Nasonex 50 mcg/actua tion Baring RxNorm: 4321793 2 [place] NASAL 07/07/2017 07/07/2017 Inactive omeprazole 40 mg cap steven,delayed release RxNorm: 795165 1 Capsule(s) PO QD 04/18/2017 10/19/2017 In active simvastatin 40 mg ta blet RxNorm: 188139 1 Tablet(s) PO QD MALISSA E 1 TABLET EVERY DAY 04/18/2017 04/12/2018 In active metoprolol tartrate 25 mg tablet RxNorm: 024626 1/2 Tablet(s) PO QD 04/18/2017 01/09/2018 Inactive simvastatin 40 mg ta blet RxNorm: 987926 Tablet(s) TAKE 1 TABL ET EVERY DAY 10/27/2016 04/17/2017 In active metoprolol tartrate 25 mg tablet RxNorm: 255123 1/2 Tablet(s) PO QD 09/20/2016 03/18/2017 Inactive Flonase 50 mcg/actua tion nasal spray,suspension RxNorm: 6666670 2 Baring NASAL BID 09/20/2016 04/17/2017 In active omeprazole 40 mg cap steven,delayed release RxNorm: 046542 1 Capsule(s) PO QD 09/08/2016 04/17/2017 In active metoprolol tartrate 25 mg tablet RxNorm: 194074 1/2 Tablet(s) PO QD 06/14/2016 09/19/2016 Inactive ciprofloxacin 0.2 % ear drops in a dropperette RxNorm: 100057 4 Drop(s) OTIC TID fo r 1 week 02/06/2016 05/11/2016 Inactive cefdinir 300 mg capsule RxNorm: 194095 2 Capsule(s) PO QD 02/06/2016 02/15/2016 Inactive omeprazole 40 mg cap steven,delayed release RxNorm: 097821 TAKE 1 CAPSULE EVERY DAY 11/06/2015 09/08/2016 In active simvastatin 40 mg ta blet RxNorm: 263825 TAKE 1 TABLET EVERY DAY 10/08/2015 10/27/2016 Inactive Flonase 50 mcg/actua tion nasal spray,suspension RxNorm: 6618871 2 [place] NASAL BID 02/19/2015 09/19/2016 In active cefuroxime axetil 25 0 mg tablet RxNorm: 751465 1 Tablet(s) PO BID 11/21/2014 11/20/2014 Inactive cefuroxime axetil 25 0 mg tablet RxNorm: 115921 1 Tablet(s) PO BID 11/21/2014 11/27/2014 Inactive omeprazole 40 mg cap steven,delayed release RxNorm: 120486 1 Capsule(s) PO QD 10/09/2014 01/05/2015 In active meloxicam 7.5 mg tablet RxNorm: 233479 1 Tablet(s) PO QD 07/11/2014 08/09/2014 Inactive loratadine 10 mg tablet RxNorm: 717239 1 Tablet(s) PO QAM for allergies 10/17/2013 08/13/2018 In active Flonase 50 mcg/actua tion nasal spray,suspension RxNorm: 130077 2 [place] NASAL BID 10/17/2013 02/18/2015 In active prednisone 20 mg tablet RxNorm: 608489 2 Tablet(s) PO BID 10/17/2013 10/21/2013 Inactive Dyazide 37.5 mg-25 m g capsule RxNorm: 049438 1 Capsule(s) PO QAM 09/24/2013 10/16/2013 Inactive Ceftin 500 mg tablet RxNorm: 487966 1 Tablet(s) PO BID 05/31/2013 06/09/2013 Inactive Ceftin 500 mg tablet RxNorm: 982262 1 Tablet(s) PO BID 03/26/2013 04/04/2013 Inactive simvastatin 40 mg ta blet RxNorm: 373448 Tablet(s) PO TAKE ONE TABLET BY MOUTH EVERY DAY 03/26/2013 10/07/2015 Inactive metoprolol tartrate 25 mg tablet RxNorm: 784126 Tablet(s) PO TAKE ONE -HALF TABLET BY MOUTH EVERY DAY 03/26/2013 11/12/2014 Inactive Ceftin 500 mg tablet RxNorm: 242300 1 Tablet(s) PO BID 12/19/2012 12/28/2012 Inactive loratadine 10 mg tablet RxNorm: 128449 1 Tablet(s) PO QAM for allergies 10/04/2012 12/02/2012 In active omeprazole 20 mg cap steven,delayed release RxNorm: 138963 Capsule(s) PO TAKE ON E CAPSULE BY MOUTH TWICE DAILY 08/09/2012 10/08/2014 Inactive omeprazole 20 mg cap steven,delayed release RxNorm: 750726 1 Capsule(s) PO BID 08/09/2012 05/09/2018 In active Augmentin 875 mg-125 mg tablet RxNorm: 703383 1 Tablet(s) PO Q12H 07/14/2012 07/23/2012 Inactive Floxin Otic Drops 1 bottle Drops RxNorm: 5 Drop(s) OTIC BID 07/14/2012 07/20/2012 Inactive metoprolol tartrate 25 mg tablet RxNorm: 069754 Tablet(s) PO TAKE ONE -HALF TABLET BY MOUTH EVERY DAY 04/11/2012 03/25/2013 Inactive simvastatin 40 mg ta blet RxNorm: 276947 Tablet(s) PO TAKE ONE TABLET BY MOUTH EVERY DAY 04/11/2012 03/25/2013 Inactive lancets RxNorm: Misc Miscellaneous USE ONE TO CHECK GLUC OSE EVERY DAY 04/04/2012 05/09/2018 In active Carafate 1 gram tablet RxNorm: 505341 1 Tablet(s) PO AC & HS 02/22/2012 11/12/2014 Inactive Flagyl 500 mg tablet RxNorm: 968556 1 Tablet(s) PO TID 12/15/2011 12/21/2011 Inactive Carafate 1 gram tablet RxNorm: 914292 1 Tablet(s) PO AC & HS 12/15/2011 02/12/2012 Inactive One Touch Test strips RxNorm: Miscellaneous QD 09/21/2011 05/09/2018 Inactive one touch ultra mini test strips Protonix 40 mg Tab RxNorm: 072454 1 Tablet(s) PO QD 09/13/2011 09/12/2011 Inactive Protonix 40 mg Tab RxNorm: 514606 1 Tablet(s) PO QD 09/13/2011 12/14/2011 Inactive prednisone 20 mg Tab RxNorm: 586228 1 Tablet(s) PO BID 08/03/2011 08/09/2011 Inactive Flexeril 5 mg Tab RxNorm: 928334 1 Tablet(s) PO QHS for spasm 07/26/2011 08/24/2011 Inactive Flexeril 5 mg Tab RxNorm: 843160 1 Tablet(s) PO QHS for spasm 06/28/2011 07/25/2011 Inactive amlodipine 2.5 mg Tab RxNorm: 708989 1/2 Tablet(s) PO QD replaces 5mg dose 03/31/2011 06/27/2011 In active simvastatin 40 mg ta blet RxNorm: 511325 1 Tablet(s) PO QD 03/31/2011 03/24/2012 Inactive metoprolol tartrate 25 mg tablet RxNorm: 275976 1/2 Tablet(s) PO QD 03/31/2011 03/24/2012 Inactive omeprazole 20 mg cap steven,delayed release RxNorm: 542653 1 Capsule(s) PO BID 03/31/2011 09/12/2011 In active cefdinir 300 mg Cap RxNorm: 827847 2 Capsule(s) PO QD 02/11/2011 02/20/2011 Inactive simvastatin 40 mg Tab RxNorm: 361561 1 Tablet(s) PO QD 02/01/2011 03/30/2011 Inactive metoprolol tartrate 25 mg Tab RxNorm: 712631 1/2 Tablet(s) PO QD 12/29/2010 03/30/2011 Inactive metoprolol tartrate 25 mg Tab RxNorm: 314055 1/2 Tablet(s) PO QD 12/28/2010 12/28/2010 Inactive meclizine 25 mg Tab RxNorm: 0701380 1 Tablet(s) PO QHS 10/15/2010 11/13/2010 Inactive for dizziness Ceftin 500 mg Tab RxNorm: 358312 1 Tablet(s) PO BID 07/02/2010 07/11/2010 Inactive omeprazole 20 mg Cap , Delayed Release RxNorm: 546283 1 Capsule(s) PO BID 07/02/2010 12/28/2010 In active simvastatin 40 mg Tab RxNorm: 583293 1 Tablet(s) PO QD 06/30/2010 05/09/2018 Inactive simvastatin 40 mg Tab RxNorm: 504278 1 Tablet(s) PO QD 06/30/2010 01/25/2011 Inactive simvastatin 40 mg Tab RxNorm: 762965 1 Tablet(s) PO QD 02/25/2010 06/30/2010 Inactive Tessalon Perles 100 mg Cap RxNorm: 803661 1 Capsule(s) PO Q6-8H 01/22/2010 01/28/2010 Inactive cefdinir 300 mg Cap RxNorm: 200912 1 Capsule(s) PO BID 01/22/2010 01/31/2010 Inactive Lexapro 10 mg Tab RxNorm: 926218 1 Tablet(s) PO QD 12/02/2009 01/30/2010 Inactive Cipro 250 mg Tab RxNorm: 461109 1 Tablet(s) PO BID 12/02/2009 12/08/2009 Inactive Wellbutrin XL 150 mg 24 hr Tab RxNorm: 002130 1 Tablet(s) PO QAM 06/09/2009 08/07/2009 Inactive Fish Oil 1,000 mg Cap RxNorm: 1 Capsule(s) PO QD No Start Date Active Tylenol Extra Streng th 500 mg tablet RxNorm: 086907 1/2 Tablet(s) PO as n eeded No Start Date Active nitroglycerin 0.4 mg sublingual tablet RxNorm: 398784 Tablet(s) SL as neede d No Start Date Active Calcium with Vitamin D 600 mg (1,500 mg)-400 unit tablet RxNorm: 794133 1 Tablet(s) PO QD No Start Date Active Multivitamin & Rate Examiner al Formula Tab RxNorm: 1 Tablet(s) PO QD No Start Date Active vitamin B complex ca psule RxNorm: 1 Capsule(s) PO QD No Start Date Active Aspirin 81 mg Tab RxNorm: 897350 1 Tablet(s) PO QD No Start Date Active isosorbide mononitra te ER 30 mg tablet,extended release 24 hr RxNorm: 368211 1 Tablet(s) PO QHS No Start Date Active Vitamin D 1,000 unit Cap RxNorm: 480594 1 Capsule(s) PO QD No Start Date Active Co Q-10 oral RxNorm: 80898 oral No Start Date Active metoprolol tartrate 25 mg Tab RxNorm: 426653 1/2 Tablet(s) PO QD No Start Date 12/27/2010 Inactive Nasonex 50 mcg/actua tion Baring RxNorm: 1189932 2 Baring NASAL No Start Date 07/06/2017 Inactive Vitamin B12 1000mcg Tablet RxNorm: 1 Tablet(s) PO QD No Start Date 11/12/2014 Inactive amlodipine 5 mg Tab RxNorm: 776165 1 Tablet(s) PO QD No Start Date 03/30/2011 Inactive simvastatin 40 mg ta blet RxNorm: 239609 1 Tablet(s) PO QD No Start Date 06/12/2018 Inactive omeprazole 20 mg cap steven,delayed release RxNorm: 766973 1 Capsule(s) PO BID No Start Date 08/08/2012 Inactive omeprazole 40 mg cap steven,delayed release RxNorm: 043025 1 Capsule(s) PO QD No Start Date 06/12/2018 Inactive Nexium 40 mg Cap RxNorm: 186533 1 Capsule(s) PO QD No Start Date 01/21/2010 Inactive Stool Softener 100 m g Tab RxNorm: 6437345 2 Tablet(s) PO BID No Start Date 03/30/2011 Inactive Calcium with Vitamin D 600 mg (1,500 mg)-400 unit Tab RxNorm: 917974 1 Tablet(s) PO QD No Start Date 11/12/2014 Inactive iron 325 mg (65 mg i yajaira) Tab RxNorm: 357558 1 Tablet(s) PO QD No Start Date 11/12/2014 Inactive Flonase 50 mcg/actua tion Nasal Baring RxNorm: 719384 2 Baring NASAL BID No Start Date 10/16/2013 Inactive fluticasone 50 mcg/a ctuation nasal spray,suspension RxNorm: 8858810 2 [place] NASAL QD to each nostril No Start Date 07/06/2017 Inactive Nasonex 50 mcg/actua tion Baring RxNorm: 9968362 2 [place]aring NASAL QD No Start Date 07/06/2017 Inactive hydralazine 50 mg ta blet RxNorm: 394934 1 Tablet(s) PO as nee ded for BP over 160/90 No Start Date 11/21/2017 Inactive Vimovo 500 mg-20 mg 12 hr Tab RxNorm: 987823 1 Tablet(s) PO BID No Start Date 02/10/2011 Inactive Tylenol PM 25 mg-500 mg/15 mL Oral Soln RxNorm: 4807739 1 PO QPM No Start Date 11/12/2014 Inactive Iron (Ferrous Sulfat e) Oral RxNorm: Oral No Start D ate 03/30/2011 Inactive Reglan 10 mg Tab RxNorm: 519581 1 Tablet(s) PO TID before meals No Start Date 02/10/2011 Inactive Xanax 1 mg Tab RxNorm: 491181 1/2 Tablet(s) PO QD No Start Date 11/21/2017 Inactive amlodipine 10 mg tablet RxNorm: 942438 1 Tablet(s) PO QD No Start Date 09/23/2013 Inactive Iron (dried) Oral RxNorm: Oral No Start Date 03/30/2011 Inactive metoprolol tartrate 50 mg tablet RxNorm: 312748 1 Tablet(s) PO BID No Start Date 02/13/2018 Inactive Xanax 0.25 mg tablet RxNorm: 385983 1 Tablet(s) PO BID No Start Date 01/02/2018 Inactive lancets RxNorm: Miscellaneous check blood sugar at least once daily No Start Date 04/03/2012 Inactive simvastatin 40 mg Tab RxNorm: 533861 1 Tablet(s) PO QD No Start Date 02/24/2010 Inactive isosorbide mononitra te ER 30 mg tablet,extended release 24 hr RxNorm: 220524 1 Tablet(s) PO QHS No Start Date 08/13/2018 Inactive amlodipine 2.5 mg ta blet RxNorm: 715800 1 Tablet(s) PO QD No Start Date 09/23/2013 Inactive sucralfate 1 gram ta blet RxNorm: 690844 1 Tablet(s) PO QID No Start Date 05/09/2018 Inactive Fish Oil Oral RxNorm: Oral No Start Date 03/31/2011 Inactive Multiple Vitamin Oral RxNorm: Oral No Start Date 03/31/2011 Inactive metoprolol tartrate 25 mg tablet RxNorm: 589684 1/2 Tablet(s) PO QD No Start Date 06/13/2016 Inactive metoprolol tartrate 50 mg tablet RxNorm: 538081 1/2 Tablet(s) PO BID No Start Date 05/09/2018 Inactive Flonase Allergy Reli ef 50 mcg/actuation nasal spray,suspension RxNorm: 7077262 2 Baring NASAL QHS No Start Date 11/06/2018 Inactive [...] ICD-9: 300.00 01/10/2018 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.10 [...] in spasming follow up 01/10/2018 4 W iqugmiut follow up 12/06/2017 follow up 11/22/2017 high blood pressure 10/20/2017 Dr Mcgrath has ordered holter monitor and hydralazine 50mg PRN dizziness 09/27/2017 On Tuesday morning patient woke up and went to [...] cough 05/31/2013 [address] ht at Dr Mcgrath's office so he started he on amlodipine [...] Item Item Code Result Date GFR CALC 5478686 GFR Non Afr Amr 48 mL/min 08/14/2018 GFR CALC 5275378 GFR Afr Amr 59 mL/min 08/14/2018 THYROID STIMULATING HORMONE 85887 TSH 1.936 uIU/mL 9 COMPREHENSIVE METABOLIC 92825 AST 18 U/L 08/14/2018 COMPREHENSIVE METABOLIC 03818 ALT 11 U/L 08/14/2018 COMPREHENSIVE METABOLIC 74633 BUN 18 mg/dL 08/14/2018 COMPREHENSIVE METABOLIC 64489 ALBUMIN 4.2 g/dL 08/14/2018 COMPREHENSIVE METABOLIC 19018 CHLORIDE 109 mmol/L 08/14/2018 COMPREHENSIVE METABOLIC 69883 Bili Total 0.4 mg/dL 08/14/2018 COMPREHENSIVE METABOLIC 91664 ALK PHOS 64 U/L 08/14/2018 COMPREHENSIVE METABOLIC 33859 SODIUM 142 mmol/L 08/14/2018 COMPREHENSIVE METABOLIC 52157 CREATININE 1.09 mg/dL 08/14/2018 COMPREHENSIVE METABOLIC 71993 CALCIUM 9.3 mg/dL 08/14/2018 COMPREHENSIVE METABOLIC 18399 POTASSIUM 4.7 mmol/L 08/14/2018 COMPREHENSIVE METABOLIC 58970 Total Protein 6.3 g/dL 08/14/2018 COMPREHENSIVE METABOLIC 22944 Glucose 84 mg/dL 08/14/2018 COMPREHENSIVE METABOLIC 21081 Bicarbonate 25 mmol/L 08/14/2018 COMPREHENSIVE METABOLIC 61144 AGAP 8 mmol/L 08/14/2018 COMPLETE BLOOD COUNT 7657413 WBC 7.8 10e9/L 08/14/2018 COMPLETE BLOOD COUNT 9773323 RBC 4.04 10e12/L 9 COMPLETE BLOOD COUNT 6885995 HEMOGLOBIN 12.2 g/dL 08/14/2018 COMPLETE BLOOD COUNT 4102578 HEMATOCRIT 38.6 % 08/14/2018 COMPLETE BLOOD COUNT 5359379 MCV 95.5 fL 08/14/2018 COMPLETE BLOOD COUNT 1384557 MCH 30.2 pg 08/14/2018 COMPLETE BLOOD COUNT 6170199 MCHC 31.6 g/dL 08/14/2018 COMPLETE BLOOD COUNT 4043766 PLATELET COUNT 215 10e9/L 08/14/2018 COMPLETE BLOOD COUNT 1315147 Mean Plt Volume 11.2 fL 08/14/2018 COMPLETE BLOOD COUNT 2408119 Neut Auto 45.7 % 08/14/2018 COMPLETE BLOOD COUNT 6818400 Lymph Auto 42.1 % 08/14/2018 COMPLETE BLOOD COUNT 2343796 Gove Auto 9.2 % 08/14/2018 COMPLETE BLOOD COUNT 8730237 RDW 13.4 % 08/14/2018 COMPLETE BLOOD COUNT 5002390 Eos Auto 2.7 % 08/14/2018 COMPLETE BLOOD COUNT 5204158 Baso Auto 0.3 % 08/14/2018 COMPLETE BLOOD COUNT 5423499 Neutrophil Abs 3.56 10e9/L 08/14/2018 COMPLETE BLOOD COUNT 0612932 Lymphocyte Abs 3.28 10e9/L 08/14/2018 COMPLETE BLOOD COUNT 0960931 Monocyte Abs 0.72 10e9/L 08/14/2018 COMPLETE BLOOD COUNT 6276399 Eosinophil Abs 0.21 10e9/L 08/14/2018 COMPLETE BLOOD COUNT 4544327 RDW-SD 44.9 fL 08/14/2018 COMPLETE BLOOD COUNT 0945597 Basophil Abs 0.02 10e9/L 08/14/2018 COMPLETE BLOOD COUNT 6002882 WBC 5.2 10e9/L 11/30/2017 COMPLETE BLOOD COUNT 7197796 RBC 4.21 10e12/L 8 COMPLETE BLOOD COUNT 4246943 HEMOGLOBIN 12.8 g/dL 11/30/2017 COMPLETE BLOOD COUNT 0105015 HEMATOCRIT 39.0 % 11/30/2017 COMPLETE BLOOD COUNT 5426555 MCV 92.6 fL 11/30/2017 COMPLETE BLOOD COUNT 7366853 MCH 30.4 pg 11/30/2017 COMPLETE BLOOD COUNT 2454257 MCHC 32.8 g/dL 11/30/2017 COMPLETE BLOOD COUNT 4611333 PLATELET COUNT 202 10e9/L 11/30/2017 COMPLETE BLOOD COUNT 1727109 Mean Plt Volume 10.7 fL 11/30/2017 COMPLETE BLOOD COUNT 0473822 Neut Auto 40.9 % 11/30/2017 COMPLETE BLOOD COUNT 4445145 Lymph Auto 46.3 % 11/30/2017 COMPLETE BLOOD COUNT 8635377 Gove Auto 9.3 % 11/30/2017 COMPLETE BLOOD COUNT 9125719 RDW 13.7 % 11/30/2017 COMPLETE BLOOD COUNT 5161497 Eos Auto 2.9 % 11/30/2017 COMPLETE BLOOD COUNT 0070176 Baso Auto 0.6 % 11/30/2017 COMPLETE BLOOD COUNT 7068441 Neutrophil Abs 2.13 10e9/L 11/30/2017 COMPLETE BLOOD COUNT 8660405 Lymphocyte Abs 2.41 10e9/L 11/30/2017 COMPLETE BLOOD COUNT 9083636 Monocyte Abs 0.48 10e9/L 11/30/2017 COMPLETE BLOOD COUNT 2637569 Eosinophil Abs 0.15 10e9/L 11/30/2017 COMPLETE BLOOD COUNT 0467723 RDW-SD 45.2 fL 11/30/2017 COMPLETE BLOOD COUNT [id number] Basophil Abs 0.03 10e9/L 11/30/2017 [place] [address] Glucose 118 mg/dL 11/30/2017 [place] [address] CREATININE 1.01 mg/dL 11/30/2017 [place] [address] BUN 14 mg/dL 11/30/2017 [place] [address] SODIUM 141 mmol/L 11/30/2017 [place] [address] POTASSIUM 4.0 mmol/L 11/30/2017 [place] [address] CHLORIDE 108 mmol/L 11/30/2017 [place] [address] Bicarbonate 25 mmol/L 11/30/2017 [place] [address] AGAP 8 mmol/L 11/30/2017 [place] [address] CALCIUM 9.6 mg/dL 11/30/2017 FREE T4 63569 T4 Free 1.23 ng/dL 11/30/2017 GFR CALC 3961805 GFR Non Afr Amr 53 mL/min 11/30/2017 GFR CALC 7360652 GFR Afr Amr >60 mL/min 11/30/2017 THYROID STIMULATING HORMONE 42024 TSH 2.124 uIU/mL 8 LIPID GROUP 92029 Choles terol 152 mg/dL 09/28/2017 LIPID GROUP 12343 Trigly ceride 151 mg/dL 09/28/2017 LIPID GROUP 00998 HDL CH OLESTEROL 47 mg/dL 09/28/2017 LIPID GROUP 84428 Chol/H DL Ratio 3.23 ratio 09/28/2017 LIPID GROUP 98006 NON-HD L Chol 105 mg/dL 09/28/2017 LIPID GROUP 50069 LDL Ch olesterol 75 mg/dL 09/28/2017 ASSAY OF TROPONIN QUANT 42024 Troponin-I <0.30 ng/mL 09/27/2017 COMPREHENSIVE METABOLIC 52716 AST 20 U/L 09/27/2017 COMPREHENSIVE METABOLIC 57891 ALT 14 U/L 09/27/2017 COMPREHENSIVE METABOLIC 13179 BUN 19 mg/dL 09/27/2017 COMPREHENSIVE METABOLIC 74553 ALBUMIN 4.2 g/dL 09/27/2017 COMPREHENSIVE METABOLIC 50217 CHLORIDE 102 mmol/L 09/27/2017 COMPREHENSIVE METABOLIC 29995 Bili Total 0.4 mg/dL 09/27/2017 COMPREHENSIVE METABOLIC 46189 ALK PHOS 66 U/L 09/27/2017 COMPREHENSIVE METABOLIC 17873 SODIUM 135 mmol/L 09/27/2017 COMPREHENSIVE METABOLIC 50134 CREATININE 1.01 mg/dL 09/27/2017 COMPREHENSIVE METABOLIC 29624 CALCIUM 9.3 mg/dL 09/27/2017 COMPREHENSIVE METABOLIC 91064 POTASSIUM 4.8 mmol/L 09/27/2017 COMPREHENSIVE METABOLIC 98079 Total Protein 7.0 g/dL 09/27/2017 COMPREHENSIVE METABOLIC 94090 Glucose 91 mg/dL 09/27/2017 COMPREHENSIVE METABOLIC 49865 Bicarbonate 23 mmol/L 09/27/2017 COMPREHENSIVE METABOLIC 64736 AGAP 10 mmol/L 09/27/2017 COMPLETE BLOOD COUNT 0944818 WBC 7.5 10e9/L 09/27/2017 COMPLETE BLOOD COUNT 3053515 RBC 4.13 10e12/L 8 COMPLETE BLOOD COUNT 1499343 HEMOGLOBIN 12.6 g/dL 09/27/2017 COMPLETE BLOOD COUNT 0316651 HEMATOCRIT 38.4 % 09/27/2017 COMPLETE BLOOD COUNT 8109847 MCV 93.0 fL 09/27/2017 COMPLETE BLOOD COUNT 4321095 MCH 30.5 pg 09/27/2017 COMPLETE BLOOD COUNT 9208306 MCHC 32.8 g/dL 09/27/2017 COMPLETE BLOOD COUNT 0374511 PLATELET COUNT 204 10e9/L 09/27/2017 COMPLETE BLOOD COUNT 7703274 Mean Plt Volume 10.9 fL 09/27/2017 COMPLETE BLOOD COUNT 8545364 Neut Auto 43.1 % 09/27/2017 COMPLETE BLOOD COUNT 8497844 Lymph Auto 45.0 % 09/27/2017 COMPLETE BLOOD COUNT 6694597 Gove Auto 9.2 % 09/27/2017 COMPLETE BLOOD COUNT 6860949 RDW 13.4 % 09/27/2017 COMPLETE BLOOD COUNT 9346883 Eos Auto 2.3 % 09/27/2017 COMPLETE BLOOD COUNT 8546573 Baso Auto 0.4 % 09/27/2017 COMPLETE BLOOD COUNT 3006696 Neutrophil Abs 3.23 10e9/L 09/27/2017 COMPLETE BLOOD COUNT 5086378 Lymphocyte Abs 3.38 10e9/L 09/27/2017 COMPLETE BLOOD COUNT 1019395 Monocyte Abs 0.69 10e9/L 09/27/2017 COMPLETE BLOOD COUNT 2009045 Eosinophil Abs 0.17 10e9/L 09/27/2017 COMPLETE BLOOD COUNT 5901298 RDW-SD 44.4 fL 09/27/2017 COMPLETE BLOOD COUNT 3770146 Basophil Abs 0.03 10e9/L 09/27/2017 GFR CALC 6340157 GFR Non Afr Amr 53 mL/min 09/27/2017 GFR CALC 9566262 GFR Afr Amr >60 mL/min 09/27/2017 GLYCOSYLATED HEMOGLOBIN TEST 43891 Hgb A1c 78855-0 5.4 % 09/27/2017 MEAN GLUC 6533541 Calc M steven Gluc 108 mg/dL 09/27/2017 MEAN GLUC 8725169 Calc M steven Gluc 114 mg/dL 11/01/2016 LIPID GROUP 66753 Choles terol 146 mg/dL 11/01/2016 LIPID GROUP 94386 Trigly ceride 119 mg/dL 11/01/2016 LIPID GROUP 31507 HDL CH OLESTEROL 47 mg/dL 11/01/2016 LIPID GROUP 58845 Chol/H DL Ratio 3.11 ratio 11/01/2016 LIPID GROUP 29960 NON-HD L Chol 99 mg/dL 11/01/2016 LIPID GROUP 78302 LDL Ch olesterol 75 mg/dL 11/01/2016 GLYCOSYLATED HEMOGLOBIN TEST 86300 Hgb A1c 48021-9 5.6 % 11/01/2016 COMPREHENSIVE METABOLIC 48428 AST 22 U/L 11/01/2016 COMPREHENS[facility] METABOLIC 88111 ALT 12 U/L 11/01/2016 COMPREH[facility] 51662 BUN 17 mg/dL 11/01/2016 COMPREHENS[facility] 97599 ALBUMIN 4.0 g/dL 11/01/2016 COMPREHENSIVE [facility]OL[facility] 73113 CHLORIDE 110 mmol/L 11/01/2016 [facility]PREH[facility] 03638 Bili Total 0.4 mg/dL 11/01/2016 [facility] 34839 ALK PHOS 63 U/L 11/01/2016 [facility] 60678 SODIUM 140 mmol/L 11/01/2016 [facility] 49579 CREATININE 1.05 mg/dL 11/01/2016 [facility] 22479 CALCIUM 9.2 mg/dL 11/01/2016 [facility] 33623 POTASSIUM 4.2 mmol/L 11/01/2016 [facility] 82242 Total Protein 6.2 g/dL 11/01/2016 [facility] 13333 Glucose 87 mg/dL 11/01/2016 [facility] 88828 Bicarbonate 24 mmol/L 11/01/2016 [facility]PREH[facility] 52911 AGAP 6 mmol/L 11/01/2016 GFR CALC 9102914 GFR Non Afr Amr 51 mL/min 11/01/2016 GFR CALC 3665116 GFR Afr Amr >60 mL/min 11/01/2016 COMPLETE BLOOD COUNT 9466754 WBC 6.7 10e9/L 11/01/2016 COMPLETE BLOOD COUNT 8264832 RBC 4.04 10e12/L 7 COMPLETE BLOOD COUNT 9327874 HEMOGLOBIN 12.1 g/dL 11/01/2016 COMPLETE BLOOD COUNT 7606562 HEMATOCRIT 38.0 % 11/01/2016 COMPLETE BLOOD COUNT 7763147 MCV 94.1 fL 11/01/2016 COMPLETE BLOOD COUNT 8407154 MCH 30.0 pg 11/01/2016 COMPLETE BLOOD COUNT 6685386 MCHC 31.8 g/dL 11/01/2016 COMPLETE BLOOD COUNT 2751761 PLATELET COUNT 206 10e9/L 11/01/2016 COMPLETE BLOOD COUNT 9048161 Mean Plt Volume 11.3 fL 11/01/2016 COMPLETE BLOOD COUNT 3506733 Neut Auto 35.8 % 11/01/2016 COMPLETE BLOOD COUNT 4243547 Lymph Auto 51.6 % 11/01/2016 COMPLETE BLOOD COUNT 3468967 Gove Auto 8.8 % 11/01/2016 COMPLETE BLOOD COUNT 7813214 RDW 13.5 % 11/01/2016 COMPLETE BLOOD COUNT 8898902 Eos Auto 3.4 % 11/01/2016 COMPLETE BLOOD COUNT 6310955 Baso Auto 0.4 % 11/01/2016 COMPLETE BLOOD COUNT 5773245 Neutrophil Abs 2.40 10e9/L 11/01/2016 COMPLETE BLOOD COUNT 9680730 Lymphocyte Abs 3.46 10e9/L 11/01/2016 COMPLETE BLOOD COUNT 1398721 Monocyte Abs 0.59 10e9/L 11/01/2016 COMPLETE BLOOD COUNT 7241701 Eosinophil Abs 0.23 10e9/L 11/01/2016 COMPLETE BLOOD COUNT [id number] RDW-SD 45.3 fL 11/01/2016 COMPLETE BLOOD COUNT [id number] Basophil Abs 0.03 10e9/L 11/01/2016 THYROID STIMULATING HORMONE 44653 TSH 1.981 uIU/mL 7 COMPLETE BLOOD COUNT 0229077 WBC 6.0 10e9/L 05/13/2016 COMPLETE BLOOD COUNT 5005295 RBC 4.29 10e12/L 7 COMPLETE BLOOD COUNT 3330659 HEMOGLOBIN 12.9 g/dL 05/13/2016 COMPLETE BLOOD COUNT 4543550 HEMATOCRIT 38.4 % 05/13/2016 COMPLETE BLOOD COUNT 3704213 MCV 89.5 fL 05/13/2016 COMPLETE BLOOD COUNT 7842726 MCH 30.1 pg 05/13/2016 COMPLETE BLOOD COUNT 6307890 MCHC 33.6 g/dL 05/13/2016 COMPLETE BLOOD COUNT 8261034 PLATELET COUNT 181 10e9/L 05/13/2016 COMPLETE BLOOD COUNT 8051365 Mean Plt Volume 11.7 fL 05/13/2016 COMPLETE BLOOD COUNT 2163893 Neut Auto 36.9 % 05/13/2016 COMPLETE BLOOD COUNT 9296511 Lymph Auto 50.4 % 05/13/2016 COMPLETE BLOOD COUNT 0112409 Gove Auto 9.0 % 05/13/2016 COMPLETE BLOOD COUNT 8966683 RDW 13.7 % 05/13/2016 COMPLETE BLOOD COUNT 7537581 Eos Auto 3.4 % 05/13/2016 COMPLETE BLOOD COUNT 8995525 Baso Auto 0.3 % 05/13/2016 COMPLETE BLOOD COUNT 7542275 Neutrophil Abs 2.21 10e9/L 05/13/2016 COMPLETE BLOOD COUNT 5553127 Lymphocyte Abs 3.02 10e9/L 05/13/2016 COMPLETE BLOOD COUNT 4546208 Monocyte Abs 0.54 10e9/L 05/13/2016 COMPLETE BLOOD COUNT 5333474 Eosinophil Abs 0.20 10e9/L 05/13/2016 COMPLETE BLOOD COUNT 1229660 RDW-SD 44.0 fL 05/13/2016 COMPLETE BLOOD COUNT 5073766 Basophil Abs 0.02 10e9/L 05/13/2016 GLYCOSYLATED HEMOGLOBIN TEST 27408 Hgb A1c 77885-6 5.4 % 05/13/2016 THYROID STIMULATING HORMONE 66620 TSH 2.200 uIU/mL 7 GFR CALC 2402402 GFR Non Afr Amr 50 mL/min 05/13/2016 GFR CALC 0522261 GFR Afr Amr >60 mL/min 05/13/2016 MEAN GLUC 2630605 Calc M steven Gluc 108 mg/dL 05/13/2016 COMPREHENSIVE METABOLIC 21179 AST 18 U/L 05/13/2016 COMPREHENSIVE METABOLIC 18484 ALT 10 U/L 05/13/2016 COMPREHENSIVE METABOLIC 28564 BUN 20 mg/dL 05/13/2016 COMPREHENSIVE METABOLIC 96366 ALBUMIN 4.1 g/dL 05/13/2016 COMPREHENSIVE METABOLIC 32416 CHLORIDE 109 mmol/L 05/13/2016 COMPREHENSIVE METABOLIC 52047 Bili Total 0.6 mg/dL 05/13/2016 COMPREHENSIVE METABOLIC 04510 ALK PHOS 64 U/L 05/13/2016 COMPREHENSIVE METABOLIC 57450 SODIUM 141 mmol/L 05/13/2016 COMPREHENSIVE METABOLIC 24586 CREATININE 1.06 mg/dL 05/13/2016 COMPREHENSIVE METABOLIC 93682 CALCIUM 9.9 mg/dL 05/13/2016 COMPREHENSIVE METABOLIC 62267 POTASSIUM 4.2 mmol/L 05/13/2016 COMPREHENSIVE METABOLIC 29439 Total Protein 6.3 g/dL 05/13/2016 COMPREHENSIVE METABOLIC 70383 Glucose 99 mg/dL 05/13/2016 COMPREHENSIVE METABOLIC 02367 Bicarbonate 21 mmol/L 05/13/2016 COMPREHENSIVE METABOLIC 65542 AGAP 11 mmol/L 05/13/2016 LIPID GROUP 46556 Choles terol 169 mg/dL 11/25/2015 LIPID GROUP 84676 Trigly ceride 165 mg/dL 11/25/2015 LIPID GROUP 24822 HDL CH OLESTEROL 43 mg/dL 11/25/2015 LIPID GROUP 83717 Chol/H DL Ratio 3.93 ratio 11/25/2015 LIPID GROUP 44742 NON-HD L Chol 126 mg/dL 11/25/2015 LIPID GROUP 62163 LDL Ch olesterol 93 mg/dL 11/25/2015 COMPREHENSIVE METABOLIC 34155 AST 18 U/L 11/25/2015 COMPREHENSIVE METABOLIC 68407 ALT 10 U/L 11/25/2015 COMPREHENSIVE METABOLIC 10229 BUN 20 mg/dL 11/25/2015 COMPREHENSIVE METABOLIC 06737 ALBUMIN 3.9 g/dL 11/25/2015 COMPREHENSIVE METABOLIC 45092 CHLORIDE 110 mmol/L 11/25/2015 COMPREHENSIVE METABOLIC 70314 Bili Total 0.5 mg/dL 11/25/2015 COMPREHENSIVE METABOLIC 53496 ALK PHOS 72 U/L 11/25/2015 COMPREHENSIVE METABOLIC 04757 SODIUM 141 mmol/L 11/25/2015 COMPREHENSIVE METABOLIC 51880 CREATININE 1.12 mg/dL 11/25/2015 COMPREHENSIVE METABOLIC 08336 CALCIUM 9.7 mg/dL 11/25/2015 COMPREHENSIVE METABOLIC 70754 POTASSIUM 4.4 mmol/L 11/25/2015 COMPREHENSIVE METABOLIC 71716 Total Protein 6.2 g/dL 11/25/2015 COMPREHENSIVE METABOLIC 21120 Glucose 90 mg/dL 11/25/2015 COMPREHENSIVE METABOLIC 97492 Bicarbonate 23 mmol/L 11/25/2015 COMPREHENSIVE METABOLIC 01841 AGAP 8 mmol/L 11/25/2015 GFR CALC 8021288 GFR Non Afr Amr 47 mL/min 11/25/2015 GFR CALC 0203143 GFR Afr Amr 57 mL/min 11/25/2015 GLYCOSYLATED HEMOGLOBIN TEST 68461 Hgb A1c 51500-0 5.5 % 11/25/2015 THYROID STIMULATING HORMONE 13064 TSH 2.537 uIU/mL 6 FREE T4 05129 T4 Free 1.36 ng/dL 11/25/2015 COMPLETE BLOOD COUNT 7708347 WBC 6.8 10e9/L 11/25/2015 COMPLETE BLOOD COUNT 7924402 RBC 4.20 10e12/L 6 COMPLETE BLOOD COUNT 4820595 HEMOGLOBIN 12.5 g/dL 11/25/2015 COMPLETE BLOOD COUNT 6703190 HEMATOCRIT 38.0 % 11/25/2015 COMPLETE BLOOD COUNT 8603150 MCV 90.5 fL 11/25/2015 COMPLETE BLOOD COUNT 9683627 MCH 29.8 pg 11/25/2015 COMPLETE BLOOD COUNT 4921263 MCHC 32.9 g/dL 11/25/2015 COMPLETE BLOOD COUNT 2380469 PLATELET COUNT 197 10e9/L 11/25/2015 COMPLETE BLOOD COUNT 0476013 Mean Plt Volume 11.7 fL 11/25/2015 COMPLETE BLOOD COUNT 8645633 Neut Auto 41.3 % 11/25/2015 COMPLETE BLOOD COUNT 5323322 Lymph Auto 47.1 % 11/25/2015 COMPLETE BLOOD COUNT 1513158 Gove Auto 7.8 % 11/25/2015 COMPLETE BLOOD COUNT 8555187 RDW 13.8 % 11/25/2015 COMPLETE BLOOD COUNT 8817925 Eos Auto 3.4 % 11/25/2015 COMPLETE BLOOD COUNT 1148789 Baso Auto 0.4 % 11/25/2015 COMPLETE BLOOD COUNT 0717395 Neutrophil Abs 2.81 10e9/L 11/25/2015 COMPLETE BLOOD COUNT 3405069 Lymphocyte Abs 3.20 10e9/L 11/25/2015 COMPLETE BLOOD COUNT 8488014 Monocyte Abs 0.53 10e9/L 11/25/2015 COMPLETE BLOOD COUNT 6131343 Eosinophil Abs 0.23 10e9/L 11/25/2015 COMPLETE BLOOD COUNT 7453084 RDW-SD 44.4 fL 11/25/2015 COMPLETE BLOOD COUNT 6112378 Basophil Abs 0.03 10e9/L 11/25/2015 MEAN GLUC 5453756 Calc M steven Gluc 111 mg/dL 11/25/2015 [place] [address] Glucose 89 MG/DL 02/19/2015 [place] [address] CREATININE 1.12 MG/DL 02/19/2015 [place] [address] BUN 20 MG/DL 02/19/2015 [place] [address] SODIUM 139 MMOL/L 02/19/2015 [place] [address] POTASSIUM 4.6 MMOL/L 02/19/2015 [place] [address] CHLORIDE 108 MMOL/L 02/19/2015 [place] [address] BICARB 26 MMOL/L 02/19/2015 [place] [address] ANION GAP 5 MEQ/L 02/19/2015 [place] [address] CALCIUM 10.0 MG/DL 02/19/2015 GFR CALC 2225183 GFR AA 57.0L ML/MIN 02/19/2015 GFR CALC 1228404 GFR NON -AA 47.0L ML/MIN 5 THYROID STIMULATING HORMONE 76671 TSH 2.378 uIU/ML 5 COMPLETE BLOOD COUNT 5867785 WBC 6.4 10e9/L 11/14/2014 COMPLETE BLOOD COUNT 0133473 RBC 3.99 10e12/L 5 COMPLETE BLOOD COUNT 4778032 HGB 11.9 g/dL 11/14/2014 COMPLETE BLOOD COUNT 7260497 HCT DET 36.9 % 11/14/2014 COMPLETE BLOOD COUNT 8924937 MCV 92.5 fL 11/14/2014 COMPLETE BLOOD COUNT 7628271 MCH 29.8 pg 11/14/2014 COMPLETE BLOOD COUNT 2549540 MCHC 32.2 g/dL 11/14/2014 COMPLETE BLOOD COUNT 9640448 PLT 172 10e9/L 11/14/2014 COMPLETE BLOOD COUNT 0547310 MPV 11.7 fL 11/14/2014 COMPLETE BLOOD COUNT 8267385 CINTHYA % 40.4 % 11/14/2014 COMPLETE BLOOD COUNT 5574570 LY % 48.0 % 11/14/2014 COMPLETE BLOOD COUNT 7988705 MON % 8.3 % 11/14/2014 COMPLETE BLOOD COUNT 1944327 EOS % 2.8 % 11/14/2014 COMPLETE BLOOD COUNT 1347395 BASO % 0.5 % 11/14/2014 COMPLETE BLOOD COUNT 6796974 RDW 13.6 % 11/14/2014 COMPLETE BLOOD COUNT 0687873 ABS CINTHYA 2.59 10e9/L 11/14/2014 COMPLETE BLOOD COUNT 7382756 ABS LYMPH 3.07 10e9/L 11/14/2014 COMPLETE BLOOD COUNT 9536982 ABS MONO 0.53 10e9/L 11/14/2014 COMPLETE BLOOD COUNT 1717148 ABS EOS 0.18 10e9/L 11/14/2014 COMPLETE BLOOD COUNT 3564267 ABS BASO 0.03 10e9/L 11/14/2014 COMPLETE BLOOD COUNT 2096725 RDW-SD 44.9 fL 11/14/2014 LIPID GROUP [address] 42 MG/DL 11/14/2014 LIPID GROUP 30719 TRIG 177 MG/DL 11/14/2014 LIPID GROUP 89818 TEST L DL 72 MG/DL 11/14/2014 LIPID GROUP 36678 CHOL 149 MG/DL 11/14/2014 LIPID GROUP 37879 RCHOL/ HDL 3.55 RATIO 11/14/2014 LIPID GROUP 78641 NON-HD L CH 107 MG/DL 11/14/2014 GLYCOSYLATED HEMOGLOBIN TEST 10972 A1C HPLC 22613-3 5.5 % 11/14/2014 FREE T4 93999 FREE T4 1.39 NG/DL 11/14/2014 GFR CALC 7165594 GFR AA 55.0L ML/MIN 11/14/2014 GFR CALC 8114251 GFR NON -AA 46.0L ML/MIN 5 COMPREHENSIVE METABOLIC 81379 AST 17 U/L 11/14/2014 COMPREHENSIVE METABOLIC 56440 ALT 10 IU/L 11/14/2014 COMPREHENSIVE METABOLIC 51416 BUN 20 MG/DL 11/14/2014 COMPREHENSIVE METABOLIC 94627 ALBUMIN 3.9 GM/DL 11/14/2014 COMPREHENSIVE METABOLIC 85671 CHLORIDE 111 MMOL/L 11/14/2014 COMPREHENSIVE METABOLIC 24580 BILI TOT 0.4 MG/DL 11/14/2014 COMPREHENSIVE METABOLIC 97237 ALK PHOS 70 U/L 11/14/2014 COMPREHENSIVE METABOLIC 21708 SODIUM 142 MMOL/L 11/14/2014 COMPREHENSIVE METABOLIC 88071 CREATININE 1.16 MG/DL 11/14/2014 COMPREHENSIVE METABOLIC 63687 CALCIUM 9.4 MG/DL 11/14/2014 COMPREHENSIVE METABOLIC 82359 POTASSIUM 4.6 MMOL/L 11/14/2014 COMPREHENSIVE METABOLIC 56102 PROT TOT 6.2 GM/DL 11/14/2014 COMPREHENSIVE METABOLIC 52262 Glucose 90 MG/DL 11/14/2014 COMPREHENSIVE METABOLIC 29468 BICARB 24 MMOL/L 11/14/2014 COMPREHENSIVE METABOLIC 82492 ANION GAP 7 MEQ/L 11/14/2014 THYROID STIMULATING HORMONE 97491 TSH 2.427 uIU/ML 5 LIPID GROUP [address] 47 MG/DL 05/10/2014 LIPID GROUP 84540 TRIG 145 MG/DL 05/10/2014 LIPID GROUP 06720 TEST L DL 73 MG/DL 05/10/2014 LIPID GROUP 97531 CHOL 149 MG/DL 05/10/2014 LIPID GROUP 30862 RCHOL/ HDL 3.17 RATIO 05/10/2014 LIPID GROUP 70446 NON-HD L CH 102 MG/DL 05/10/2014 COMPREHENSIVE METABOLIC 46660 AST 17 U/L 05/10/2014 COMPREHENSIVE METABOLIC 63971 ALT 9 IU/L 05/10/2014 COMPREHENSIVE METABOLIC 34588 BUN 19 MG/DL 05/10/2014 COMPREHENSIVE METABOLIC 27247 ALBUMIN 4.3 GM/DL 05/10/2014 COMPREHENSIVE METABOLIC 78322 CHLORIDE 108 MMOL/L 05/10/2014 COMPREHENSIVE METABOLIC 11886 BILI TOT 0.5 MG/DL 05/10/2014 COMPREHENSIVE METABOLIC 51570 ALK PHOS 68 U/L 05/10/2014 COMPREHENSIVE METABOLIC 06658 SODIUM 140 MMOL/L 05/10/2014 COMPREHENSIVE METABOLIC 69422 CREATININE 1.08 MG/DL 05/10/2014 COMPREHENSIVE METABOLIC 34084 CALCIUM 9.9 MG/DL 05/10/2014 COMPREHENSIVE METABOLIC 26098 POTASSIUM 4.3 MMOL/L 05/10/2014 COMPREHENSIVE METABOLIC 21896 PROT TOT 7.2 GM/DL 05/10/2014 COMPREHENSIVE METABOLIC 66050 Glucose 94 MG/DL 05/10/2014 COMPREHENSIVE METABOLIC 16354 BICARB 26 MMOL/L 05/10/2014 COMPREHENSIVE METABOLIC 50469 ANION GAP 6 MEQ/L 05/10/2014 GFR CALC 4277515 GFR AA 60.0L ML/MIN 05/10/2014 GFR CALC 5153321 GFR NON -AA 49.0L ML/MIN 5 GLYCOSYLATED HEMOGLOBIN TEST 70883 A1C HPLC 25302-5 5.6 % 05/10/2014 COMPLETE BLOOD COUNT 0717246 WBC 7.2 10e9/L 05/10/2014 COMPLETE BLOOD COUNT 1857064 RBC 4.28 10e12/L 5 COMPLETE BLOOD COUNT 3456220 HGB 12.8 g/dL 05/10/2014 COMPLETE BLOOD COUNT 5295339 HCT DET 39.3 % 05/10/2014 COMPLETE BLOOD COUNT 8700973 MCV 91.8 fL 05/10/2014 COMPLETE BLOOD COUNT 6250068 MCH 29.9 pg 05/10/2014 COMPLETE BLOOD COUNT 5635115 MCHC 32.6 g/dL 05/10/2014 COMPLETE BLOOD COUNT 4924522 PLT 189 10e9/L 05/10/2014 COMPLETE BLOOD COUNT 2599848 MPV 11.2 fL 05/10/2014 COMPLETE BLOOD COUNT 7404231 CINTHYA % 38.0 % 05/10/2014 COMPLETE BLOOD COUNT 4650385 LY % 51.0 % 05/10/2014 COMPLETE BLOOD COUNT 0779400 MON % 7.7 % 05/10/2014 COMPLETE BLOOD COUNT 1969334 EOS % 2.9 % 05/10/2014 COMPLETE BLOOD COUNT 8805334 BASO % 0.4 % 05/10/2014 COMPLETE BLOOD COUNT 2559960 RDW 14.0 % 05/10/2014 COMPLETE BLOOD COUNT 1996196 ABS CINTHYA 2.74 10e9/L 05/10/2014 COMPLETE BLOOD COUNT 8145303 ABS LYMPH 3.67 10e9/L 05/10/2014 COMPLETE BLOOD COUNT 8705109 ABS MONO 0.55 10e9/L 05/10/2014 COMPLETE BLOOD COUNT 8295064 ABS EOS 0.21 10e9/L 05/10/2014 COMPLETE BLOOD COUNT 7205612 ABS BASO 0.03 10e9/L 05/10/2014 COMPLETE BLOOD COUNT 5127034 RDW-SD 46.1 fL 05/10/2014 FREE T4 74524 FREE T4 1.14 NG/DL 05/10/2014 GLYCOSYLATED HEMOGLOBIN TEST 48342 A1C HPLC 28176-1 5.2 % 03/29/2013 FREE T4 52664 FREE T4 1.40 NG/DL 03/28/2013 GFR CALC 0307717 GFR AA >60 ML/MIN 03/28/2013 GFR CALC 7109761 GFR NON -AA 52.0L ML/MIN 4 COMPREHENSIVE METABOLIC 79321 AST 15 U/L 03/28/2013 COMPREHENSIVE METABOLIC 10740 ALT 9 IU/L 03/28/2013 COMPREHENSIVE METABOLIC 54801 BUN 17 MG/DL 03/28/2013 COMPREHENSIVE METABOLIC 50026 ALBUMIN 4.0 GM/DL 03/28/2013 COMPREHENSIVE METABOLIC 86249 CHLORIDE 112 MMOL/L 03/28/2013 COMPREHENSIVE METABOLIC 35937 BILI TOT 0.5 MG/DL 03/28/2013 COMPREHENSIVE METABOLIC 44429 ALK PHOS 66 U/L 03/28/2013 COMPREHENSIVE METABOLIC 17151 SODIUM 140 MMOL/L 03/28/2013 COMPREHENSIVE METABOLIC 60044 CREATININE 1.03 MG/DL 03/28/2013 COMPREHENSIVE METABOLIC 74342 CALCIUM 9.5 MG/DL 03/28/2013 COMPREHENSIVE METABOLIC 79794 POTASSIUM 4.1 MMOL/L 03/28/2013 COMPREHENSIVE METABOLIC 21115 PROT TOT 6.2 GM/DL 03/28/2013 COMPREHENSIVE METABOLIC 61940 Glucose 102 MG/DL 03/28/2013 COMPREHENSIVE METABOLIC 43369 BICARB 23 MMOL/L 03/28/2013 COMPREHENSIVE METABOLIC 83596 ANION GAP 5 MEQ/L 03/28/2013 THYROID STIMULATING HORMONE 79251 TSH 2.074 uIU/ML 01/22/201 4 VITAMIN B 12 FOLIC ACID 87826|64959 VIT B 12 423 PG/ML 03/28/2013 VITAMIN B 12 FOLIC ACID 09662|36732 FOLIC ACID 19.7 NG/ML 03/28/2013 LIPID GROUP [address] 40 MG/DL 03/28/2013 LIPID GROUP 96953 TRIG 145 MG/DL 03/28/2013 LIPID GROUP 21014 TEST L DL 81 MG/DL 03/28/2013 LIPID GROUP 72258 CHOL 150 MG/DL 03/28/2013 LIPID GROUP 70538 RCHOL/ HDL 3.75 RATIO 03/28/2013 COMPLETE BLOOD COUNT 6633463 WBC 6.0 10e9/L 03/28/2013 COMPLETE BLOOD COUNT 8517320 RBC 4.26 10e12/L 4 COMPLETE BLOOD COUNT 8837794 HGB 12.7 g/dL 03/28/2013 COMPLETE BLOOD COUNT 0352840 HCT DET 38.7 % 03/28/2013 COMPLETE BLOOD COUNT 1468568 MCV 90.8 fL 03/28/2013 COMPLETE BLOOD COUNT 3191559 MCH 29.8 pg 03/28/2013 COMPLETE BLOOD COUNT 5103266 MCHC 32.8 g/dL 03/28/2013 COMPLETE BLOOD COUNT 6947211 PLT 178 10e9/L 03/28/2013 COMPLETE BLOOD COUNT 9826808 MPV 11.7 fL 03/28/2013 COMPLETE BLOOD COUNT 4645229 CINTHYA % 30.5 % 03/28/2013 COMPLETE BLOOD COUNT 6428855 LY % 55.4 % 03/28/2013 COMPLETE BLOOD COUNT 1392948 MON % 9.0 % 03/28/2013 COMPLETE BLOOD COUNT 6541585 EOS % 4.4 % 03/28/2013 COMPLETE BLOOD COUNT 5716269 BASO % 0.7 % 03/28/2013 COMPLETE BLOOD COUNT 1182468 RDW 13.3 % 03/28/2013 COMPLETE BLOOD COUNT 6805091 ABS CINTHYA 1.83 10e9/L 03/28/2013 COMPLETE BLOOD COUNT 1260623 ABS LYMPH 3.32 10e9/L 03/28/2013 COMPLETE BLOOD COUNT 6926244 ABS MONO 0.54 10e9/L 03/28/2013 COMPLETE BLOOD COUNT 9638383 ABS EOS 0.26 10e9/L 03/28/2013 COMPLETE BLOOD COUNT 6795915 ABS BASO 0.04 10e9/L 03/28/2013 COMPLETE BLOOD COUNT 8390297 RDW-SD 43.2 fL 03/28/2013 HEMOGLOBIN A1C (GLYCOSYLATED) 1619572 A1C HPLC 31573-1 5.5 % 02/24/2012 COMPLETE BLOOD COUNT 6099930 WBC 6.0 10e9/L 02/23/2012 COMPLETE BLOOD COUNT 6013544 RBC 4.22 10e12/L 2 COMPLETE BLOOD COUNT 8806183 HGB 12.4 g/dL 02/23/2012 COMPLETE BLOOD COUNT 4119919 HCT DET 38.2 % 02/23/2012 COMPLETE BLOOD COUNT 6860787 MCV 90.5 fL 02/23/2012 COMPLETE BLOOD COUNT 9295727 MCH 29.4 pg 02/23/2012 COMPLETE BLOOD COUNT 3488298 MCHC 32.5 g/dL 02/23/2012 COMPLETE BLOOD COUNT 0797606 PLT 187 10e9/L 02/23/2012 COMPLETE BLOOD COUNT 9411274 MPV 11.5 fL 02/23/2012 COMPLETE BLOOD COUNT 7915936 CINTHYA % 36.4 % 02/23/2012 COMPLETE BLOOD COUNT 3709688 LY % 51.0 % 02/23/2012 COMPLETE BLOOD COUNT 6923734 MON % 8.7 % 02/23/2012 COMPLETE BLOOD COUNT 9310658 EOS % 3.2 % 02/23/2012 COMPLETE BLOOD COUNT 2594193 BASO % 0.7 % 02/23/2012 COMPLETE BLOOD COUNT 3616476 RDW 13.7 % 02/23/2012 COMPLETE BLOOD COUNT 6567993 ABS CINTHYA 2.18 10e9/L 02/23/2012 COMPLETE BLOOD COUNT 2491960 ABS LYMPH 3.06 10e9/L 02/23/2012 COMPLETE BLOOD COUNT 1714475 ABS MONO 0.52 10e9/L 02/23/2012 COMPLETE BLOOD COUNT 9609073 ABS EOS 0.19 10e9/L 02/23/2012 COMPLETE BLOOD COUNT 1457012 ABS BASO 0.04 10e9/L 02/23/2012 COMPLETE BLOOD COUNT 3802751 RDW-SD 44.3 fL 02/23/2012 LIPID GROUP [address] 42 MG/DL 02/23/2012 LIPID GROUP 13232 TRIG 156 MG/DL 02/23/2012 LIPID GROUP 36097 TEST L DL 80 MG/DL 02/23/2012 LIPID GROUP 10539 CHOL 153 MG/DL 02/23/2012 LIPID GROUP 64284 RCHOL/ HDL 3.64 RATIO 02/23/2012 FREE T4 52470 FREE T4 1.22 NG/DL 02/23/2012 COMPREHENSIVE METABOLIC 88250 AST 20 U/L 02/23/2012 COMPREHENSIVE METABOLIC 52685 ALT 11 IU/L 02/23/2012 COMPREHENSIVE METABOLIC 83630 BUN 19 MG/DL 02/23/2012 COMPREHENSIVE METABOLIC 36904 ALBUMIN 4.3 GM/DL 02/23/2012 COMPREHENSIVE METABOLIC 64294 CHLORIDE 109 MMOL/L 02/23/2012 COMPREHENSIVE METABOLIC 79050 BILI TOT 0.6 MG/DL 02/23/2012 COMPREHENSIVE METABOLIC 84390 ALK PHOS 84 U/L 02/23/2012 COMPREHENSIVE METABOLIC 20131 SODIUM 142 MMOL/L 02/23/2012 COMPREHENSIVE METABOLIC 60346 CREATININE 1.09 MG/DL 02/23/2012 COMPREHENSIVE METABOLIC 66644 CALCIUM 9.8 MG/DL 02/23/2012 COMPREHENSIVE METABOLIC 80035 POTASSIUM 4.2 MMOL/L 02/23/2012 COMPREHENSIVE METABOLIC 06461 PROT TOT 6.4 GM/DL 02/23/2012 COMPREHENSIVE METABOLIC 22594 Glucose 89 MG/DL 02/23/2012 COMPREHENSIVE METABOLIC 33300 BICARB 25 MMOL/L 02/23/2012 COMPREHENSIVE METABOLIC 31509 ANION GAP 8 MEQ/L 02/23/2012 GFR CALC 2990322 GFR AA 60.0L ML/MIN 02/23/2012 GFR CALC 9839759 GFR NON -AA 49.0L ML/MIN 2 THYROID STIMULATING HORMONE 06819 TSH 2.450 uIU/ML 2 COMPREHENSIVE METABOLIC 34032 AST 22 U/L 04/01/2011 COMPREHENSIVE METABOLIC 51753 ALT 14 IU/L 04/01/2011 COMPREHENSIVE METABOLIC 01540 BUN 21 MG/DL 04/01/2011 COMPREHENSIVE METABOLIC 23338 ALBUMIN 4.3 GM/DL 04/01/2011 COMPREHENSIVE METABOLIC 38592 CHLORIDE 106 MMOL/L 04/01/2011 COMPREHENSIVE METABOLIC 17519 BILI TOT 0.4 MG/DL 04/01/2011 COMPREHENSIVE METABOLIC 27641 ALK PHOS 80 U/L 04/01/2011 COMPREHENSIVE METABOLIC 95854 SODIUM 141 MMOL/L 04/01/2011 COMPREHENSIVE METABOLIC 24340 CREATININE 1.13 MG/DL 04/01/2011 COMPREHENSIVE METABOLIC 61962 CALCIUM 9.4 MG/DL 04/01/2011 COMPREHENSIVE METABOLIC 41484 POTASSIUM 4.3 MMOL/L 04/01/2011 COMPREHENSIVE METABOLIC 15148 PROT TOT 6.7 GM/DL 04/01/2011 COMPREHENSIVE METABOLIC 23655 Glucose 98 MG/DL 04/01/2011 COMPREHENSIVE METABOLIC 45023 BICARB 25 MMOL/L 04/01/2011 COMPREHENSIVE METABOLIC 21344 ANION GAP 10 MEQ/L 04/01/2011 LIPID GROUP [address] 44 MG/DL 04/01/2011 LIPID GROUP 73571 TRIG 164 MG/DL 04/01/2011 LIPID GROUP 82351 TEST L DL 98 MG/DL 04/01/2011 LIPID GROUP 42099 CHOL 175 MG/DL 04/01/2011 LIPID GROUP 69637 RCHOL/ HDL 3.98 RATIO 04/01/2011 COMPLETE BLOOD COUNT 23501 WBC 6.7 10e9/L 04/01/2011 COMPLETE BLOOD COUNT 51098 RBC 4.36 10e12/L 2 COMPLETE BLOOD COUNT 98550 HGB 12.9 g/dL 04/01/2011 COMPLETE BLOOD COUNT 59636 HCT DET 39.4 % 04/01/2011 COMPLETE BLOOD COUNT 31610 MCV 90.4 fL 04/01/2011 COMPLETE BLOOD COUNT 33644 MCH 29.6 pg 04/01/2011 COMPLETE BLOOD COUNT 72844 MCHC 32.7 g/dL 04/01/2011 COMPLETE BLOOD COUNT 62204 PLT 184 10e9/L 04/01/2011 COMPLETE BLOOD COUNT 53834 MPV 10.9 fL 04/01/2011 COMPLETE BLOOD COUNT 29063 CINTHYA % 41.5 % 04/01/2011 COMPLETE BLOOD COUNT 71192 LY % 45.7 % 04/01/2011 COMPLETE BLOOD COUNT 28709 MON % 9.4 % 04/01/2011 COMPLETE BLOOD COUNT 67876 EOS % 3.0 % 04/01/2011 COMPLETE BLOOD COUNT 94643 BASO % 0.4 % 04/01/2011 COMPLETE BLOOD COUNT 83704 RDW 13.2 % 04/01/2011 COMPLETE BLOOD COUNT 54570 ABS CINTHYA 2.78 10e9/L 04/01/2011 COMPLETE BLOOD COUNT 06669 ABS LYMPH 3.06 10e9/L 04/01/2011 COMPLETE BLOOD COUNT 43220 ABS MONO 0.63 10e9/L 04/01/2011 COMPLETE BLOOD COUNT 15920 ABS EOS 0.20 10e9/L 04/01/2011 COMPLETE BLOOD COUNT 97673 ABS BASO 0.03 10e9/L 04/01/2011 COMPLETE BLOOD COUNT 80067 RDW-SD 42.3 fL 04/01/2011 GFR CALC 5203789 GFR AA 57.0L ML/MIN 04/01/2011 GFR CALC 1364703 GFR NON -AA 47.0L ML/MIN 2 THYROID STIMULATING HORMONE 84735 TSH 2.663 uIU/ML 2 FREE T4 30976 FREE T4 1.15 NG/DL 04/01/2011 THYROID STIMULATING HORMONE 94949 TSH 1.908 uIU/ML 1 COMPLETE BLOOD COUNT 47501 WBC 6.4 10e9/L 07/06/2010 COMPLETE BLOOD COUNT 41478 RBC 3.92 10e12/L 1 COMPLETE BLOOD COUNT 53181 HGB 11.8 g/dL 07/06/2010 COMPLETE BLOOD COUNT 59538 HCT DET 36.0 % 07/06/2010 COMPLETE BLOOD COUNT 99025 MCV 91.8 fL 07/06/2010 COMPLETE BLOOD COUNT 22851 MCH 30.1 pg 07/06/2010 COMPLETE BLOOD COUNT 23411 MCHC 32.8 g/dL 07/06/2010 COMPLETE BLOOD COUNT 78544 PLT 176 10e9/L 07/06/2010 COMPLETE BLOOD COUNT 27754 MPV 11.4 fL 07/06/2010 COMPLETE BLOOD COUNT 04969 CINTHYA % 50.4 % 07/06/2010 COMPLETE BLOOD COUNT 48322 LY % 35.5 % 07/06/2010 COMPLETE BLOOD COUNT 52383 MON % 10.2 % 07/06/2010 COMPLETE BLOOD COUNT 22737 EOS % 3.3 % 07/06/2010 COMPLETE BLOOD COUNT 56147 BASO % 0.6 % 07/06/2010 COMPLETE BLOOD COUNT 68956 RDW 13.7 % 07/06/2010 COMPLETE BLOOD COUNT 07633 ABS CINTHYA 3.23 10e9/L 07/06/2010 COMPLETE BLOOD COUNT 99885 ABS LYMPH 2.27 10e9/L 07/06/2010 COMPLETE BLOOD COUNT 38656 ABS MONO 0.65 10e9/L 07/06/2010 COMPLETE BLOOD COUNT 66860 ABS EOS 0.21 10e9/L 07/06/2010 COMPLETE BLOOD COUNT 46264 ABS BASO 0.04 10e9/L 07/06/2010 COMPLETE BLOOD COUNT 60012 RDW-SD 45.3 fL 07/06/2010 GFR CALC 8678002 GFR AA >60 ML/MIN 07/06/2010 GFR CALC 2784079 GFR NON -AA 53.0L ML/MIN 1 FREE T4 48545 FREE T4 1.20 NG/DL 07/06/2010 COMPREHENSIVE METABOLIC 26777 AST 17 U/L 07/06/2010 COMPREHENSIVE METABOLIC 29350 ALT 9 IU/L 07/06/2010 COMPREHENSIVE METABOLIC 03537 BUN 16 MG/DL 07/06/2010 COMPREHENSIVE METABOLIC 42773 ALBUMIN 4.0 GM/DL 07/06/2010 COMPREHENSIVE METABOLIC 58489 CHLORIDE 108 MMOL/L 07/06/2010 COMPREHENSIVE METABOLIC 72826 BILI TOT 0.5 MG/DL 07/06/2010 COMPREHENSIVE METABOLIC 15200 ALK PHOS 76 U/L 07/06/2010 COMPREHENSIVE METABOLIC 42442 SODIUM 139 MMOL/L 07/06/2010 COMPREHENSIVE METABOLIC 55575 CREATININE 1.02 MG/DL 07/06/2010 COMPREHENSIVE METABOLIC 65585 CALCIUM 9.2 MG/DL 07/06/2010 COMPREHENSIVE METABOLIC 32217 POTASSIUM 4.5 MMOL/L 07/06/2010 COMPREHENSIVE METABOLIC 20860 PROT TOT 6.1 GM/DL 07/06/2010 COMPREHENSIVE METABOLIC 27951 Glucose 93 MG/DL 07/06/2010 COMPREHENSIVE METABOLIC 22658 BICARB 26 MMOL/L 07/06/2010 COMPREHENSIVE METABOLIC 90342 ANION GAP 5 MEQ/L 07/06/2010 LIPID GROUP [address] 46 MG/DL 07/06/2010 LIPID GROUP 25248 TRIG 102 MG/DL 07/06/2010 LIPID GROUP 65213 TEST L DL 88 MG/DL 07/06/2010 LIPID GROUP 56805 CHOL 154 MG/DL 07/06/2010 LIPID GROUP 56997 RCHOL/ HDL 3.35 RATIO 07/06/2010 Review of [...] pain 12/06/2017 Neurologic No syncope Psychiatric anxiety 10/0 04/2017 Psychiatric No depression 12/06/2017 Psychiatric stress [...] - General Neurologic mental status Overall: alert 201 7 None Full Exam - General Neurologic [...] Procedures Procedure Codes Date ROUTINE VENIPUNCTURE CPT-4: 66234 08/14/2018 ASSAY THYROID STIM H ORMONE CPT-4: 15310 08/14/2018 COMPREHEN METABOLIC PANEL CPT-4: 15324 08/14/2018 COMPLETE CBC W/AUTO DIFF WBC CPT-4: 69925 08/14/2018 URINALYSIS NONAUTO W /O SCOPE CPT-4: 31209 05/10/2018 URINE CULTURE/ COLON Y COUNT CPT-4: 05459 05/10/2018 URINE CULTURE/ COLON Y COUNT CPT-4: 42559 12/06/2017 ROUTINE VENIPUNCTURE CPT-4: 92153 11/30/2017 ASSAY OF FREE THYROXINE CPT-4: 49489 11/30/2017 ASSAY THYROID STIM H ORMONE CPT-4: 57155 11/30/2017 COMPLETE CBC W/AUTO DIFF WBC CPT-4: 94735 11/30/2017 METABOLIC PANEL TOTA L CA CPT-4: 91904 11/30/2017 FLU VACC PRSV FREE I NC ANTIG 65 AND OLDER CPT-4: 78755 11/22/2017 ASSAY, GLUCOSE, BLOO D QUANT CPT-4: 21488 11/22/2017 ADMIN INFLUENZA VIRU S VAC CPT-4: G0008 11/22/2017 ROUTINE VENIPUNCTURE CPT-4: 59929 09/27/2017 COMPREHEN METABOLIC PANEL CPT-4: 12828 09/27/2017 COMPLETE CBC W/AUTO DIFF WBC CPT-4: 46527 09/27/2017 A1C HPLC CPT-4: 82020 09/27/2017 ASSAY OF TROPONIN QUANT CPT-4: 86412 09/27/2017 LIPID PANEL CPT-4: 54821 09/27/2017 THER/PROPH/DIAG INJ SC/IM CPT-4: 32814 05/30/2017 TRIAMCINOLONE ACET I [place] NOS CPT-4: J3301 05/30/2017 URINALYSIS NONAUTO W /O SCOPE CPT-4: 04643 04/18/2017 URINE CULTURE/ COLON Y COUNT CPT-4: 31766 04/18/2017 FLU VACC PRSV FREE I NC ANTIG 65 AND OLDER CPT-4: 06250 12/10/2016 ADMIN INFLUENZA VIRU S VAC CPT-4: G0008 12/10/2016 ROUTINE VENIPUNCTURE CPT-4: 13468 11/01/2016 COMPREHEN METABOLIC PANEL CPT-4: 51028 11/01/2016 COMPLETE CBC W/AUTO DIFF WBC CPT-4: 17515 11/01/2016 LIPID PANEL CPT-4: 39551 11/01/2016 A1C HPLC CPT-4: 10072 11/01/2016 ASSAY THYROID STIM H ORMONE CPT-4: 05349 11/01/2016 ROUTINE VENIPUNCTURE CPT-4: 40712 05/13/2016 ASSAY THYROID STIM H ORMONE CPT-4: 31610 05/13/2016 COMPREHEN METABOLIC PANEL CPT-4: 08952 05/13/2016 COMPLETE CBC W/AUTO DIFF WBC CPT-4: 67697 05/13/2016 A1C HPLC CPT-4: 05182 05/13/2016 FLU VACC PRSV FREE I NC ANTIG 65 AND OLDER CPT-4: 61627 12/12/2015 ADMIN INFLUENZA VIRU S VAC CPT-4: G0008 12/12/2015 ROUTINE VENIPUNCTURE CPT-4: 43601 11/25/2015 ASSAY OF FREE THYROXINE CPT-4: 96890 11/25/2015 ASSAY THYROID STIM H ORMONE CPT-4: 55009 11/25/2015 COMPREHEN METABOLIC PANEL CPT-4: 97587 11/25/2015 COMPLETE CBC W/AUTO DIFF WBC CPT-4: 50060 11/25/2015 LIPID PANEL CPT-4: 99478 11/25/2015 A1C HPLC CPT-4: 11095 11/25/2015 URINALYSIS NONAUTO W /O SCOPE CPT-4: 42064 05/21/2015 ROUTINE VENIPUNCTURE CPT-4: 34710 02/19/2015 METABOLIC PANEL TOTA L CA CPT-4: 56112 02/19/2015 PRESCRIP TRANSMIT A ERX SY CPT-4: G8553 02/19/2015 FLU VACC PRSV FREE I NC ANTIG 63 AND OLDER CPT-4: 21164 12/20/2014 ADMIN INFLUENZA VIRU S VAC CPT-4: G0008 12/20/2014 URINALYSIS NONAUTO W /O SCOPE CPT-4: 45302 11/19/2014 URINE CULTURE/ COLON Y COUNT CPT-4: 93029 11/19/2014 ROUTINE VENIPUNCTURE CPT-4: 89089 11/14/2014 ASSAY OF FREE THYROXINE CPT-4: 61628 11/14/2014 ASSAY THYROID STIM H ORMONE CPT-4: 08734 11/14/2014 COMPREHEN METABOLIC PANEL CPT-4: 68495 11/14/2014 COMPLETE CBC W/AUTO DIFF WBC CPT-4: 20324 11/14/2014 LIPID PANEL CPT-4: 57227 11/14/2014 A1C HPLC CPT-4: 26243 11/14/2014 CERUM REMOVAL CPT-4: 98854 09/27/2014 PRESCRIP TRANSMIT A ERX SY CPT-4: G8553 07/11/2014 FLUZONE, 5ML (Medicare) CPT-4: Q2038 12/21/2013 ADMIN INFLUENZA VIRU S VAC CPT-4: G0008 12/21/2013 PRESCRIP TRANSMIT A ERX SY CPT-4: G8553 10/17/2013 PRESCRIP TRANSMIT A ERX SY CPT-4: G8553 09/24/2013 PRESCRIP TRANSMIT A ERX SY CPT-4: G8553 05/31/2013 ROUTINE VENIPUNCTURE CPT-4: 63844 03/28/2013 ASSAY OF FREE THYROXINE CPT-4: 78874 03/28/2013 ASSAY THYROID STIM H ORMONE CPT-4: 58859 03/28/2013 COMPREHEN METABOLIC PANEL CPT-4: 56338 03/28/2013 COMPLETE CBC W/AUTO DIFF WBC CPT-4: 08980 03/28/2013 LIPID PANEL CPT-4: 40969 03/28/2013 A1C HPLC CPT-4: 32738 03/28/2013 VITAMIN B 12 FOLIC ACID CPT-4: 80339|81454 03/28/2013 PRESCRIP TRANSMIT A ERX SY CPT-4: G8553 03/26/2013 PRESCRIP TRANSMIT A ERX SY CPT-4: G8553 12/19/2012 FLUZONE, 5ML (Medicare) CPT-4: Q2038 11/27/2012 ADMIN INFLUENZA VIRU S VAC CPT-4: G0008 11/27/2012 PRESCRIP TRANSMIT A ERX SY CPT-4: G8553 10/04/2012 PRESCRIP TRANSMIT A ERX SY CPT-4: G8553 07/14/2012 ROUTINE VENIPUNCTURE CPT-4: 00914 02/23/2012 ASSAY OF FREE THYROXINE CPT-4: 61921 02/23/2012 ASSAY THYROID STIM H ORMONE CPT-4: 25069 02/23/2012 COMPREHEN METABOLIC PANEL CPT-4: 55465 02/23/2012 COMPLETE CBC W/AUTO DIFF WBC CPT-4: 96660 02/23/2012 LIPID PANEL CPT-4: 63249 02/23/2012 A1C GLYCOSYLATED HEM OGLOBIN TEST CPT-4: 95038 02/23/2012 CERUM REMOVAL CPT-4: 75361 02/22/2012 PRESCRIP TRANSMIT A ERX SY CPT-4: G8553 02/22/2012 PRESCRIP TRANSMIT A ERX SY CPT-4: G8553 12/15/2011 FLUZONE, 5ML (Medicare) CPT-4: Q2038 12/02/2011 ADMIN INFLUENZA VIRU S VAC CPT-4: G0008 12/02/2011 ASSAY, GLUCOSE, BLOO D QUANT CPT-4: 33686 09/21/2011 URINALYSIS NONAUTO W /O SCOPE CPT-4: 74509 09/16/2011 URINE CULTURE/ COLON Y COUNT CPT-4: 52804 09/16/2011 ROUTINE VENIPUNCTURE CPT-4: 64320 09/15/2011 ASSAY OF FREE THYROXINE CPT-4: 26810 09/15/2011 ASSAY THYROID STIM H ORMONE CPT-4: 50856 09/15/2011 COMPREHEN METABOLIC PANEL CPT-4: 07742 09/15/2011 COMPLETE CBC W/AUTO DIFF WBC CPT-4: 79534 09/15/2011 LIPID PANEL CPT-4: 48747 09/15/2011 ASSAY OF INSULIN CPT-4: 02749 09/15/2011 A1C GLYCOSYLATED HEM OGLOBIN TEST CPT-4: 42561 09/15/2011 DRAIN/INJECT JOINT/B URSA CPT-4: 93221 08/16/2011 METHYLPREDNISOLONE 4 0 MG INJ CPT-4: J1030 08/16/2011 TRIAMCINOLONE ACET I [place] NOS CPT-4: J3301 08/16/2011 PRESCRIP TRANSMIT A ERX SY CPT-4: G8553 08/03/2011 PRESCRIP TRANSMIT A ERX SY CPT-4: G8553 07/26/2011 METHYLPREDNISOLONE 4 0 MG INJ CPT-4: J1030 06/28/2011 DRAIN/INJECT JOINT/B URSA CPT-4: 11232 06/28/2011 TRIAMCINOLONE ACET I [place] NOS CPT-4: J3301 06/28/2011 PRESCRIP TRANSMIT A ERX SY CPT-4: G8553 06/28/2011 ROUTINE VENIPUNCTURE CPT-4: 96102 04/01/2011 ASSAY OF FREE THYROXINE CPT-4: 54628 04/01/2011 ASSAY THYROID STIM H ORMONE CPT-4: 70811 04/01/2011 COMPREHEN METABOLIC PANEL CPT-4: 87457 04/01/2011 COMPLETE CBC W/AUTO DIFF WBC CPT-4: 70238 04/01/2011 LIPID PANEL CPT-4: 70448 04/01/2011 PRESCRIP TRANSMIT A ERX SY CPT-4: G8553 03/31/2011 CERUM REMOVAL CPT-4: 79151 02/11/2011 PRESCRIP TRANSMIT A ERX SY CPT-4: G8553 02/11/2011 FLUZONE, 5ML (Medicare) CPT-4: Q2038 12/09/2010 ADMIN INFLUENZA VIRU S VAC CPT-4: G0008 12/09/2010 PRESCRIP TRANSMIT A ERX SY CPT-4: G8553 10/15/2010 URINALYSIS NONAUTO W /O SCOPE CPT-4: 07358 09/29/2010 URINE CULTURE/ COLON Y COUNT CPT-4: 09058 09/29/2010 CUR TOBACCO NON-USER CPT-4: G8457 09/29/2010 ROUTINE VENIPUNCTURE CPT-4: 83851 07/06/2010 COMPLETE CBC W/AUTO DIFF WBC CPT-4: 28186 07/06/2010 COMPREHEN METABOLIC PANEL CPT-4: 07565 07/06/2010 LIPID PANEL CPT-4: 95696 07/06/2010 ASSAY THYROID STIM H ORMONE CPT-4: 49292 07/06/2010 ASSAY OF FREE THYROXINE CPT-4: 39457 07/06/2010 PRESCRIP TRANSMIT A ERX SY CPT-4: G8553 07/02/2010 INJ TRIGGER POINT 1/ 2 MUSCL CPT-4: 54192 04/06/2010 TRIAMCINOLONE ACET I [place] NOS CPT-4: J3301 04/06/2010 METHYLPREDNISOLONE 4 0 MG INJ CPT-4: J1030 04/06/2010 THER/PROPH/DIAG INJ SC/IM CPT-4: 51351 04/01/2010 KETOROLAC TROMETHAMI NE INJ CPT-4: J1885 04/01/2010 PRESCRIP TRANSMIT A ERX SY CPT-4: G8553 01/22/2010 FLU VACCINE 3 YRS & > IM UP 64 CPT-4: 22166 12/10/2009 ADMIN INFLUENZA VIRU S VAC CPT-4: G0008 12/10/2009 URINALYSIS NONAUTO W /O SCOPE CPT-4: 20023 12/02/2009 URINE CULTURE/ COLON Y COUNT CPT-4: 64727 12/02/2009 PRESCRIP TRANSMIT A ERX SY CPT-4: G8553 12/02/2009 THER/PROPH/DIAG INJ SC/IM CPT-4: 34099 09/10/2009 VITAMIN B12 INJECTION CPT-4: J3420 09/10/2009 THER/PROPH/DIAG INJ SC/IM CPT-4: 72817 08/11/2009 VITAMIN B12 INJECTION CPT-4: J3420 08/11/2009 ROUTINE VENIPUNCTURE CPT-4: 36344 06/10/2009 Vital Signs Date Vital 11/07/2018 Blood [...] 1: 142/60 Code: 8480-6 BMI: 38.2 Code: 48551-8 Heart Rate 1: 48 bpm Height: 5'2" Respiratory Rate: 20 bpm SpO2: 98% Temperature: 36.7 (C ) / 98.1 (F) Weight: 212 lbs 01/10/2018 Blood Pressure 1: 142/64 Code: 8480-6 BMI: 38.5 Code: 64128-8 Heart Rate 1: 52 bpm Height: 5'2" Respiratory Rate: 22 bpm SpO2: 96% Temperature: 36.1 (C ) / 96.9 (F) Weight: 214 lbs 12/06/2017 Blood Pressure 1: 124/80 Code: 8480-6 BMI: 38.3 Code: 42462-3 Heart Rate 1: 68 bpm Height: 5'2" Respiratory Rate: 20 bpm Temperature: 36.3 (C ) / 97.4 (F) Weight: 213 lbs 11/22/2017 Blood Pressure 1: 132/78 Code: 8480-6 BMI: 37.6 Code: 84055-1 Heart Rate 1: 68 bpm Height: 5'2" Respiratory Rate: 20 bpm SpO2: 97% Temperature: 36.8 (C ) / 98.2 (F) Weight: 209 lbs 10/20/2017 Blood Pressure 1: 150/76 Code: 8480-6 BMI: 38.5 Code: 30757-8 Heart Rate 1: 64 bpm Height: 5'2" Respiratory Rate: 20 bpm SpO2: 97% Temperature: 36.2 (C ) / 97.2 (F) Weight: 214 lbs 09/27/2017 Blood Pressure 1: 122/74 Code: 8480-6 BMI: 38.2 Code: 48509-1 Heart Rate 1: 64 bpm Height: 5'2" Respiratory Rate: 18 bpm SpO2: 96% Temperature: 35.8 (C ) / 96.4 (F) Weight: 212 lbs 08/16/2017 Blood Pressure 1: 124/78 Code: 8480-6 BMI: 37.8 Code: 80816-0 Heart Rate 1: 76 bpm Height: 5'2" Respiratory Rate: 20 bpm Temperature: 36.8 (C ) / 98.3 (F) Weight: 210 lbs 07/07/2017 Blood Pressure 1: 136/70 Code: 8480-6 BMI: 38.0 Code: 49069-4 Heart Rate 1: 68 bpm Height: 5'2" Respiratory Rate: 20 bpm SpO2: 97% Temperature: 36.8 (C ) / 98.2 (F) Weight: 211 lbs 05/30/2017 Blood Pressure 1: 140/65 Code: 8480-6 Heart Rate 1: 75 bpm Respiratory Rate: 24 bpm SpO2: 95% Temperature: 37.0 (C ) / 98.6 (F) Weight: 211 lbs 04/18/2017 Blood Pressure 1: 154/70 Code: 8480-6 BMI: 37.6 Code: 08543-7 Heart Rate 1: 76 bpm Height: 5'2" Respiratory Rate: 20 bpm SpO2: 98% Temperature: 36.9 (C ) / 98.5 (F) Weight: 209 lbs 10/25/2016 Blood Pressure 1: 156/70 Code: 8480-6 BMI: 37.1 Code: 64509-8 Heart Rate 1: 72 bpm Height: 5'2" Respiratory Rate: 20 bpm SpO2: 97% Temperature: 37.0 (C ) / 98.6 (F) Weight: 206 lbs 09/20/2016 Blood Pressure 1: 152/78 Code: 8480-6 BMI: 36.8 Code: 08024-7 Heart Rate 1: 78 bpm Height: 5'2" Respiratory Rate: 20 bpm SpO2: 98% Temperature: 36.1 (C ) / 97.0 (F) Weight: 204 lbs 05/12/2016 Blood Pressure 1: 142/70 Code: 8480-6 BMI: 36.9 Code: 77034-1 Heart Rate 1: 64 bpm Height: 5'2" [...] 1: 122/64 Code: 8480-6 BMI: 39.1 Code: 54301-6 Heart Rate 1: 76 bpm Height: 5'2" Respiratory Rate: 20 bpm Temperature: 36.8 (C ) / 98.2 (F) Weight: 217 lbs 05/21/2015 Blood Pressure 1: 144/70 Code: 8480-6 BMI: 39.4 Code: 98699-7 Heart Rate 1: 76 bpm Height: 5'2" Respiratory Rate: 20 bpm Temperature: 36.6 (C ) / 97.9 (F) Weight: 219 lbs 02/19/2015 Blood Pressure 1: 152/60 Code: 8480-6 BMI: 39.6 Code: 25327-1 Heart Rate 1: 84 bpm Height: 5'2" Respiratory Rate: 20 bpm Temperature: 37.0 (C ) / 98.6 (F) Weight: 220 lbs 11/13/2014 Blood Pressure 1: 146/76 Code: 8480-6 BMI: 39.8 Code: 45488-8 Heart Rate 1: 88 bpm Height: 5'2" Respiratory Rate: 20 bpm Temperature: 37.0 (C ) / 98.6 (F) Weight: 221 lbs 09/27/2014 Blood Pressure 1: 132/70 Code: 8480-6 BMI: 39.1 Code: 91235-9 Heart Rate 1: 88 bpm Height: 5'2" Respiratory Rate: 20 bpm Temperature: 36.4 (C ) / 97.6 (F) Weight: 217 lbs 07/11/2014 Blood Pressure 1: 132/66 Code: 8480-6 BMI: 39.9 Code: 73482-6 Heart Rate 1: 72 bpm Height: 5'2" Respiratory Rate: 20 bpm Temperature: 36.9 (C ) / 98.4 (F) Weight: 218 lbs 05/23/2014 Blood Pressure 1: 136/80 Code: 8480-6 Heart Rate 1: 76 bpm Respiratory Rate: 20 bpm Temperature: 36.7 (C) / 98.0 (F) Weight: 224 lbs 03/20/2014 Blood Pressure 1: 134/78 Code: 8480-6 BMI: 39.7 Code: 68619-0 Heart Rate 1: 84 bpm Height: 5'2" Respiratory Rate: 20 bpm Temperature: 36.7 (C ) / 98.0 (F) Weight: 217 lbs 10/17/2013 Blood Pressure 1: 146/78 Code: 8480-6 BMI: 39.5 Code: 93810-0 Heart Rate 1: 82 bpm Height: 5'2" Respiratory Rate: 18 bpm Temperature: 35.6 (C ) / 96.1 (F) Weight: 216 lbs 09/24/2013 Blood Pressure 1: 134/70 Code: 8480-6 BMI: 37.9 Code: 40163-0 Heart Rate 1: 80 bpm Height: 5'3" Respiratory Rate: 20 bpm Temperature: 36.8 (C ) / 98.2 (F) Weight: 214 lbs 05/31/2013 Blood Pressure 1: 132/70 Code: 8480-6 BMI: 37.6 Code: 76578-4 Heart Rate 1: 80 bpm Height: 5'3" Respiratory Rate: 20 bpm Temperature: 36.8 (C ) / 98.3 (F) Weight: 212 lbs 03/26/2013 Blood Pressure 1: 116/74 Code: 8480-6 Heart Rate 1: 68 bpm Respiratory Rate: 20 bpm Temperature: 36.2 (C) / 97.1 (F) Weight: 212 lbs 12/19/2012 Blood Pressure 1: 132/82 Code: 8480-6 BMI: 37.4 Code: 16591-7 Heart Rate 1: 76 bpm Height: 5'3" Respiratory Rate: 20 bpm Temperature: 36.7 (C ) / 98.0 (F) Weight: 211 lbs 12/04/2012 Blood Pressure 1: 130/76 Code: 8480-6 Heart Rate 1: 78 bpm 11/27/2012 Blood Pressure 1: 140/82 Code: 8480-6 BMI: 36.8 Code: 99857-9 Heart Rate 1: 66 bpm Height: 5'3" Respiratory Rate: 20 bpm Temperature: 36.1 (C ) / 96.9 (F) Weight: 208 lbs 10/04/2012 Blood Pressure 1: 138/80 Code: 8480-6 BMI: 36.4 Code: 45442-4 Heart Rate 1: 72 bpm Height: 5'4" Respiratory Rate: 20 bpm Temperature: 36.7 (C ) / 98.0 (F) Weight: 212 lbs 07/27/2012 Blood Pressure 1: 124/70 Code: 8480-6 BMI: 36.9 Code: 64414-8 Heart Rate 1: 60 bpm Height: 5'4" Temperature: 36.1 (C ) / 97.0 (F) Weight: 215 lbs 07/14/2012 Blood Pressure 1: 132/86 Code: 8480-6 BMI: 36.9 Code: 50856-2 Heart Rate 1: 76 bpm Height: 5'4" Respiratory Rate: 20 bpm Temperature: 36.8 (C ) / 98.2 (F) Weight: 215 lbs 06/08/2012 Blood Pressure 1: 134/82 Code: 8480-6 BMI: 36.6 Code: 10463-9 Heart Rate 1: 72 bpm Height: 5'4" Respiratory Rate: 20 bpm Temperature: 36.3 (C ) / 97.4 (F) Weight: 213 lbs 02/22/2012 Blood Pressure 1: 142/80 Code: 8480-6 BMI: 37.1 Code: 26886-1 Heart Rate 1: 76 bpm Height: 5'4" Respiratory Rate: 20 bpm Temperature: 36.8 (C ) / 98.3 (F) Weight: 216 lbs 12/28/2011 Blood Pressure 1: 128/68 Code: 8480-6 BMI: 37.6 Code: 54557-6 Heart Rate 1: 72 bpm Height: 5'4" [...] 1: 128/78 Code: 8480-6 BMI: 38.1 Code: 75303-4 Heart Rate 1: 84 bpm Height: 5'4" Respiratory Rate: 20 bpm Temperature: 36.9 (C ) / 98.4 (F) Weight: 222 lbs 08/16/2011 Blood Pressure 1: 138/80 Code: 8480-6 BMI: 37.9 Code: 08295-0 Heart Rate 1: 74 bpm Height: 5'4" Temperature: 36.1 (C ) / 97.0 (F) Weight: 221 lbs 08/03/2011 Blood Pressure 1: 126/78 Code: 8480-6 BMI: 38.4 Code: 86756-9 Heart Rate 1: 72 bpm Height: 5'4" Respiratory Rate: 20 bpm Temperature: 36.7 (C ) / 98.0 (F) Weight: 224 lbs 07/26/2011 Blood Pressure 1: 138/72 Code: 8480-6 BMI: 38.4 Code: 03620-0 Heart Rate 1: 72 bpm Height: 5'4" Respiratory Rate: 20 bpm Temperature: 36.6 (C ) / 97.9 (F) Weight: 224 lbs 06/28/2011 Blood Pressure 1: 122/78 Code: 8480-6 BMI: 38.8 Code: 67405-1 Heart Rate 1: 88 bpm Height: 5'4" Respiratory Rate: 20 bpm Temperature: 36.6 (C ) / 97.8 (F) Weight: 226 lbs 03/31/2011 Blood Pressure 1: 116/60 Code: 8480-6 BMI: 38.1 Code: 84893-7 Heart Rate 1: 92 bpm Height: 5'4" Respiratory Rate: 20 bpm Temperature: 36.8 (C ) / 98.2 (F) Weight: 222 lbs 02/11/2011 Blood Pressure 1: 118/62 Code: 8480-6 BMI: 37.9 Code: 22621-9 Heart Rate 1: 80 bpm Height: 5'4" Temperature: 36.5 (C ) / 97.7 (F) Weight: 221 lbs 10/15/2010 Blood Pressure 1: 132/70 Code: 8480-6 Heart Rate 1: 84 bpm Respiratory Rate: 20 bpm Temperature: 36.7 (C) / 98.0 (F) Weight: 221 lbs 09/29/2010 Blood Pressure 1: 114/72 Code: 8480-6 BMI: 37.6 Code: 62034-2 Heart Rate 1: 76 bpm Height: 5'4" [...] 1: 120/70 Code: 8480-6 BMI: 38.3 Code: 91096-9 Heart Rate 1: 88 bpm Height: 5'5" [...] able 03/20/2014 Monitoring BS daily and r sheldonng 90-100's hyperglycemia Quality pr e-diabetic 03/20/2014 None [...] with twisting 04/06/2010 None follow up Illness sussy ms improved 04/06/2010 but still having problems [...] Quality improving 12/02/2009 None follow up Illness sussy ms improved 12/02/2009 with Lexapro urinary urgency Onset and Resolution ongoing 12/02/2009 but improving with increa sed water intake follow up Illness sussy ms improved 10/21/2009 had weakness and shakes-- was busy week getting ready for granddaughter's wedding weakness Quality muscle weakness 10/21/2009 None dyskinesia or tremor Quality acute 10/21/2009 came on out of blue follow up Illness sussy ms remained unchanged 09/10/2009 still with fatigue, [...] ed energy 06/09/2009 None follow up Reason [facility] 06/09/2009 Having trouble with gener [...] Encounters Encounter Performer Loca tion Codes Date ([id number]) OFFICE/OUTPA TIENT VISIT EST Diagnosis: Acute serous otitis media, left ear[ICD10: H65.02] Jennifer Rosario VIKKI Shah [employer] [facility] CPT-4: 83874 11/07/2018 ([id number]) OFFICE/OUTPA TIENT VISIT EST Diagnosis: Essential (primary) hypertension[ICD10: I10] Diagnosis: 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] Diagnosis: Hypoglycemia, unspecified[ICD10: E16.2] Diagnosis: Other fatigue[ICD10: R53.83] Diagnosis: Urinary tract infection, site not specified[ICD10: N39.0] Vikki Shah [employer] CPT-4: 01282 08/14/2018 ([id number]) OFFICE/OUTPA TIENT VISIT EST Diagnosis: Essential (primary) hypertension[ICD10: I10] Diagnosis: Gastro-esophageal reflux disease without esophagitis[ICD10: K21.9] Diagnosis: Urinary tract infection, site not specified[ICD10: N39.0] Vikki [facility] CPT-4: 71658 05/10/2018 ([id number]) OFFICE/OUTPA TIENT VISIT EST Diagnosis: Gastro-esophageal reflux disease without esophagitis[ICD10: K21.9] Diagnosis: Epigastric pain[ICD10: R10.13] Vikki GUAMAN [facility] CPT-4: 93244 02/14/2018 ([id number]) OFFICE/OUTPA TIENT VISIT EST Diagnosis: 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 CPT-4: 76590 01/10/2018 OFFICE/OUTPATIENT SIT EST Diagnosis: Gastro-esophageal reflux disease without esophagitis[ICD10: K21.9] Diagnosis: Palpitations[ICD10: R00.2] Diagnosis: Urinary tract infection, site not specified[ICD10: N39.0] Diagnosis: Generalized anxiety disorder[ICD10: F41.1] Vikki MARTINEZ 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 CPT-4: 54553 11/30/2017 OFFICE/OUTPATIENT SIT EST Diagnosis: Epigastric pain[ICD10: R10.13] Diagnosis: Generalized anxiety disorder[ICD10: F41.1] Diagnosis: FLU VACCINE[ICD10: Z23] Vikki CID [facility] CPT-4: 11072 11/22/2017 ([id number]) OFFICE/OUTPA TIENT VISIT EST Diagnosis: Essential (primary) hypertension[ICD10: I10] Diagnosis: Hypoglycemia, unspecified[ICD10: E16.2] Diagnosis: Gastro-esophageal reflux disease without esophagitis[ICD10: K21.9] Vikki GUAMAN [facility] CPT-4: 06866 10/20/2017 ([id number]) OFFICE/OUTPA TIENT VISIT EST Diagnosis: Dizziness and giddiness[ICD10: R42] Jennifer CID [facility] CPT-4: 09537 09/27/2017 ([id number]) OFFICE/OUTPA TIENT VISIT EST Diagnosis: Cervicalgia[ICD10: M54.2] Diagnosis: Other spondylosis with radiculopathy, cervical region[ICD10: M47.22] Vikki GUAMAN [facility] CPT-4: 38024 08/16/2017 ([id number]) OFFICE/OUTPA TIENT VISIT EST Diagnosis: Hypoglycemia, unspecified[ICD10: E16.2] Diagnosis: Other spondylosis with radiculopathy, cervical region[ICD10: M47.22] Diagnosis: Vertigo of central origin, 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] Diagnosis: 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] Vikki VENEGASR [facility] CPT-4: 02486 07/07/2017 ([id number]) OFFICE/OUTPA TIENT VISIT EST Diagnosis: Benign paroxysmal vertigo, bilateral[ICD10: H81.13] Diagnosis: Otalgia, bilateral[ICD10: H92.03] Jennifer CID [facility] CPT-4: 65372 05/30/2017 ([id number]) OFFICE/OUTPA TIENT VISIT EST Diagnosis: Low back pain[ICD10: M54.5] Diagnosis: Radiculopathy, lumbosacral region[ICD10: M54.17] Diagnosis: Left lower quadrant pain[ICD10: R10.32] Vikki VENEGASR [facility] CPT-4: 41707 04/18/2017 ([id number]) OFFICE/OUTPA TIENT VISIT EST Diagnosis: FLU VACCINE[ICD10: Z23] Vikki GUAMAN [facility] CPT-4: 68883 12/10/2016 ([id number]) OFFICE/OUTPA TIENT VISIT EST Diagnosis: Mixed hyperlipidemia[ICD10: E78.2] Diagnosis: Essential (primary) hypertension[ICD10: I10] Diagnosis: 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 CPT-4: 65414 10/25/2016 ([id number]) OFFICE/OUTPA TIENT VISIT EST Diagnosis: Left lower quadrant pain[ICD10: R10.32] Diagnosis: Low back pain[ICD10: M54.5] Vikki GUAMAN [facility] CPT-4: 69057 09/20/2016 ([id number]) OFFICE/OUTPA TIENT VISIT EST Diagnosis: Mixed hyperlipidemia[ICD10: E78.2] Diagnosis: Essential (primary) hypertension[ICD10: I10] Diagnosis: Hypoglycemia, unspecified[ICD10: E16.2] Vikki MARTINEZ [facility] CPT-4: 09281 05/13/2016 ([id number]) OFFICE/OUTPA TIENT VISIT EST Diagnosis: Impaired fasting glucose[ICD10: R73.01] Diagnosis: Mastodynia[ICD10: N64.4] Diagnosis: Mixed hyperlipidemia[ICD10: E78.2] Diagnosis: Essential (primary) hypertension[ICD10: I10] Diagnosis: Other fatigue[ICD10: R53.83] Vikki GUAMAN [facility] CPT-4: 52462 05/12/2016 ([id number]) OFFICE/OUTPA TIENT VISIT EST Diagnosis: Acute upper respiratory infection, unspecified[ICD10: J06.9] Yue Moya VIKKI GUAMAN [facility] CPT-4: 99188 03/18/2016 ([id number]) OFFICE/OUTPA TIENT VISIT EST Diagnosis: Acute mastoiditis without complications, right ear[ICD10: H70.001] Vikki GUAMAN [facility] CPT-4: 19555 02/06/2016 ([id number]) OFFICE/OUTPA TIENT VISIT EST Diagnosis: FLU VACCINE[ICD10: Z23] Vikki GUAMAN [facility] CPT-4: 84215 12/12/2015 ([id number]) OFFICE/OUTPA TIENT VISIT EST Diagnosis: Mixed hyperlipidemia[ICD10: E78.2] Diagnosis: Essential (primary) hypertension[ICD10: I10] Diagnosis: 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] Diagnosis: Impaired fasting glucose[ICD10: R73.01] Vikki MARTINEZ [facility] CPT-4: 75888 11/25/2015 ([id number]) OFFICE/OUTPA TIENT VISIT EST Diagnosis: Constipation, unspecified[ICD10: K59.00] Vikki MARTINEZ [facility] CPT-4: 69309 08/26/2015 ([id number]) OFFICE/OUTPA TIENT VISIT EST Diagnosis: Essential (primary) hypertension[ICD10: I10] Diagnosis: Mixed hyperlipidemia[ICD10: E78.2] Diagnosis: Chronic kidney disease, stage 1[ICD10: N18.1] Vikki MARTINEZ [facility] CPT-4: 27660 05/21/2015 ([id number]) OFFICE/OUTPA TIENT VISIT EST Diagnosis: Muscle weakness (generalized)[ICD10: M62.81] Diagnosis: Dizziness and giddiness[ICD10: R42] Diagnosis: Essential (primary) hypertension[ICD10: I10] Diagnosis: History of falling[ICD10: Z91.81] Vikki MARTINEZ [facility] CPT-4: 27586 02/19/2015 ([id number]) OFFICE/OUTPA TIENT VISIT EST Diagnosis: FLU VACCINE[ICD10: Z23] Vikki GUAMAN DO [facility] CPT-4: 77121 12/20/2014 ([id number]) OFFICE/OUTPA TIENT VISIT EST Diagnosis: Acute renal failure[ICD9: 584.9] Diagnosis: POLYURIA[ICD9: 788.42] Vikki GUAMAN DO [facility] CPT-4: 31107 11/19/2014 ([id number]) OFFICE/OUTPA TIENT VISIT EST Diagnosis: HYPERLIPIDEMIA NEC/NOS[ICD9: 272.4] Diagnosis: HYPERTENSION[ICD9: 401.9] Diagnosis: CAD[ICD9: 414.00] Diagnosis: Hyperglycemia[ICD9: 790.29] Diagnosis: MALAISE AND FATIGUE[ICD9: 780.79] Vikki MARTINEZ [facility] CPT-4: 24443 11/14/2014 ([id number]) OFFICE/OUTPA TIENT VISIT EST Diagnosis: MALAISE AND FATIGUE[ICD9: 780.79] Diagnosis: HYPOGLYCEMIA[ICD9: 251.2] Diagnosis: Grieving[ICD9: 309.0] Diagnosis: ABDOMINAL PAIN[ICD9: 789.00] Vikki GUAMAN [facility] CPT-4: 03952 11/13/2014 OFFICE/OUTPATIENT SIT EST Diagnosis: CERUMEN IMPACTION[ICD9: 380.4] Diagnosis: EUSTACHIAN TUBE DYSFUNCTION[ICD9: 381.81] Jessenia KEARNEYQUELINE S. Esther RUBI [facility] CPT-4: 08785 09/27/2014 ([id number]) OFFICE/OUTPA TIENT VISIT EST Diagnosis: Leg pain[ICD9: 729.5] Diagnosis: SUPERFIC PHLEBITIS-LEG[ICD9: 451.0] Vikki MARTINEZ [facility] CPT-4: 22312 07/11/2014 ([id number]) OFFICE/OUTPA TIENT VISIT EST Diagnosis: Thoracic back pain[ICD9: 724.1] Diagnosis: SPASM OF MUSCLE[ICD9: 728.85] Vikki GUAMAN [facility] CPT-4: 27903 05/23/2014 ([id number]) OFFICE/OUTPA TIENT VISIT EST Diagnosis: DIZZINESS/VERTIGO[ICD9: 780.4] Diagnosis: Benign positional vertigo[ICD9: 386.11] Diagnosis: HYPERTENSION[ICD9: 401.9] Diagnosis: Suspicious nevus[ICD9: 238.2] Vikki GUAMAN [facility] CPT-4: 37146 03/20/2014 ([id number]) OFFICE/OUTPA TIENT VISIT EST Diagnosis: FLU VACCINE[ICD10: Z23] Vikki GUAMAN [facility] CPT-4: 54409 12/21/2013 OFFICE/OUTPATIENT SIT EST Diagnosis: SINUSITIS, ACUTE[ICD9: 461.9] Diagnosis: EUSTACHIAN TUBE DYSFUNCTION[ICD9: 381.81] Jessenia Santana [facility] CPT-4: 82842 10/17/2013 ([id number]) OFFICE/OUTPA TIENT VISIT EST Diagnosis: DIZZINESS/VERTIGO[ICD9: 780.4] Diagnosis: HYPERTENSION[ICD9: 401.9] Vikki GUAMAN [facility] CPT-4: 74197 09/24/2013 ([id number]) OFFICE/OUTPA TIENT VISIT EST Diagnosis: HYPERTENSION[ICD9: 401.9] Diagnosis: MALAISE AND FATIGUE[ICD9: 780.79] Diagnosis: SINUSITIS, ACUTE[ICD9: 461.9] Vikki GUAMAN [facility] CPT-4: 70184 05/31/2013 ([id number]) OFFICE/OUTPA TIENT VISIT EST Diagnosis: HYPERLIPIDEMIA NEC/NOS[ICD9: 272.4] Diagnosis: HYPERTENSION[ICD9: 401.9] Diagnosis: B12 DEFIC ANEMIA NEC[ICD9: 281.1] Diagnosis: HYPOGLYCEMIA[ICD9: 251.2] Vikki GUAMAN [facility] CPT-4: 56050 03/28/2013 OFFICE/OUTPATIENT SIT EST Diagnosis: COUGH[ICD9: 786.2] Jessenia GUAMAN [facility] CPT-4: 75452 03/26/2013 OFFICE/OUTPATIENT SIT EST Diagnosis: COUGH[ICD9: 786.2] Diagnosis: URI, ACUTE[ICD9: 465.9] Jessenia Penny GUAMAN [facility] CPT-4: 70793 12/19/2012 ([id number]) OFFICE/OUTPA TIENT VISIT EST Diagnosis: HYPERTENSION[ICD9: 401.9] Diagnosis: CEPHALGIA[ICD9: 784.0] Diagnosis: ANXIETY STATE NOS[ICD9: 300.00] Diagnosis: FLU VACCINE[ICD9: V04.81] Vikki GUAMAN [facility] CPT-4: 55333 11/27/2012 ([id number]) OFFICE/OUTPA TIENT VISIT EST Diagnosis: DIZZINESS/VERTIGO[ICD9: 780.4] Diagnosis: SINUSITIS, ACUTE[ICD9: 461.9] Diagnosis: Benign positional vertigo[ICD9: 386.11] Vikki MARTINEZ [facility] CPT-4: 22923 10/04/2012 OFFICE/OUTPATIENT SIT EST Diagnosis: OTITIS MEDIA NOS[ICD9: 382.9] Vikki GUAMAN [facility] CPT-4: 66678 07/27/2012 OFFICE/OUTPATIENT SIT EST Diagnosis: Perforation of ear drum[ICD9: 384.20] Diagnosis: SINUSITIS, ACUTE[ICD9: 461.9] Vikki GUAMAN [facility] CPT-4: 29990 07/14/2012 ([id number]) OFFICE/OUTPA TIENT VISIT EST Diagnosis: Mastalgia[ICD9: 611.71] Vikki GUAMAN [facility] CPT-4: 53131 06/08/2012 ([id number]) OFFICE/OUTPA TIENT VISIT EST Diagnosis: HYPERLIPIDEMIA NEC/NOS[ICD9: 272.4] Diagnosis: HYPERTENSION[ICD9: 401.9] Diagnosis: DIZZINESS/VERTIGO[ICD9: 780.4] Diagnosis: Hyperglycemia[ICD9: 790.29] Diagnosis: MALAISE AND FATIGUE[ICD9: 780.79] Vikki MARTINEZ [facility] CPT-4: 67842 02/23/2012 ([id number]) OFFICE/OUTPA TIENT VISIT EST Diagnosis: EUSTACHIAN TUBE DYSFUNCTION[ICD9: 381.81] Diagnosis: DIZZINESS/VERTIGO[ICD9: 780.4] Diagnosis: ABDOMINAL PAIN[ICD9: 789.00] Diagnosis: GERD[ICD9: 530.81] Diagnosis: CERUMEN IMPACTION[ICD9: 380.4] Vikki GUAMAN [facility] CPT-4: 40240 02/22/2012 OFFICE/OUTPATIENT SIT EST Diagnosis: ABDOMINAL PAIN[ICD9: 789.00] Diagnosis: DYSPEPSIA[ICD9: 536.8] Vikki GUAMAN [facility] CPT-4: 37984 12/28/2011 ([id number]) OFFICE/OUTPA TIENT VISIT EST Diagnosis: ABDOMINAL PAIN[ICD9: 789.00] Diagnosis: DYSPEPSIA[ICD9: 536.8] Diagnosis: IBS[ICD9: 564.1] Vikki GUAMAN [facility] CPT-4: 85186 12/15/2011 OFFICE/OUTPATIENT SIT EST Diagnosis: DIZZINESS/VERTIGO[ICD9: 780.4] Diagnosis: HYPOGLYCEMIA[ICD9: 251.2] Vikki GUAMAN [facility] CPT-4: 36373 09/21/2011 ([id number]) OFFICE/OUTPA TIENT VISIT EST Diagnosis: URINARY TRACT INFECTION[ICD9: 599.0] Vikki MARTINEZ [facility] CPT-4: 76062 09/16/2011 ([id number]) OFFICE/OUTPA TIENT VISIT EST Diagnosis: HYPERLIPIDEMIA NEC/NOS[ICD9: 272.4] Diagnosis: HYPERTENSION[ICD9: 401.9] Diagnosis: MALAISE AND FATIGUE[ICD9: 780.79] Diagnosis: DIZZINESS/VERTIGO[ICD9: 780.4] Vikki GUAMAN [facility] CPT-4: 11136 09/15/2011 ([id number]) OFFICE/OUTPA TIENT VISIT EST Diagnosis: DIZZINESS/VERTIGO[ICD9: 780.4] Diagnosis: MALAISE AND FATIGUE[ICD9: 780.79] Diagnosis: HYPERTENSION[ICD9: 401.9] Vikki GUAMAN [facility] CPT-4: 36336 09/13/2011 OFFICE/OUTPATIENT SIT EST Diagnosis: LUMB/LUMBOSAC DISC DEGEN[ICD9: 722.52] Diagnosis: Radiculopathy of leg[ICD9: 724.4] Diagnosis: 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] Diagnosis: SPINAL ENTHESOPATHY[ICD9: 720.1] Vikki GUAMAN [facility] CPT-4: 35989 08/16/2011 ([id number]) OFFICE/OUTPA TIENT VISIT EST Diagnosis: PAIN, LOWER BACK[ICD9: 724.2] Diagnosis: SPASM OF MUSCLE[ICD9: 728.85] Diagnosis: SCIATICA[ICD9: 724.3] Diagnosis: Lumbar degenerative disc disease[ICD9: 722.52] Vikki MARTINEZ [facility] CPT-4: 58851 08/03/2011 ([id number]) OFFICE/OUTPA TIENT VISIT EST Diagnosis: PAIN IN THORACIC SPINE[ICD9: 724.1] Diagnosis: SPASM OF MUSCLE[ICD9: 728.85] Vikki GUAMAN [facility] CPT-4: 56379 07/26/2011 ([id number]) OFFICE/OUTPA TIENT VISIT EST Diagnosis: PAIN, LOWER BACK[ICD9: 724.2] Diagnosis: SPASM OF MUSCLE[ICD9: 728.85] Diagnosis: Sacroiliac dysfunction[ICD9: 739.4] Diagnosis: Lumbar degenerative disc disease[ICD9: 722.52] Vikki MARTINEZ [facility] CPT-4: 40868 06/28/2011 OFFICE/OUTPATIENT SIT EST Diagnosis: MALAISE AND FATIGUE[ICD9: 780.79] Diagnosis: HYPOTENSION[ICD9: 458.9] Diagnosis: CAD[ICD9: 414.00] Vikki GUAMAN [facility] CPT-4: 21207 03/31/2011 OFFICE/OUTPATIENT SIT EST Diagnosis: SINUSITIS, ACUTE[ICD9: 461.9] Diagnosis: PHARYNGITIS, ACUTE[ICD9: 462] Diagnosis: CERUMEN IMPACTION[ICD9: 380.4] [facility] CPT-[facility]: 80342 02/11/2011 OFFICE/OUTPATIENT SIT EST Diagnosis: PAIN IN THORACIC SPINE[ICD9: 724.1] Diagnosis: GERD[ICD9: 530.81] Diagnosis: DIZZINESS/VERTIGO[ICD9: 780.4] [facility] CPT-4: 85089 10/15/2010 OFFICE/OUTPATIENT SIT EST [facility] CPT-4: 76797 09/29/2010 ([id number]) OFFICE/OUTPA TIENT VISIT EST [facility] CPT-4: 31092 07/02/2010 ([id number]) OFFICE/OUTPA TIENT VISIT, EST Diagnosis: PAIN, LOWER BACK[ICD9: 724.2] Vikki Shah [facility] CPT-4: 19369 04/06/2010 ([id number]) OFFICE/OUTPA TIENT VISIT, EST Vikki [facility]KE [facility] CPT-4: 51352 04/01/2010 ([id number]) OFFICE/OUTPA TIENT VISIT, EST [facility] CPT-4: 22360 01/22/2010 ([id number]) OFFICE/OUTPA TIENT VISIT, EST Vikki PIKE [facility]Sujata [facility] CPT-4: 53668 12/02/2009 ([id number]) OFFICE/OUTPA TIENT VISIT, EST Vikki [facility]KE [facility] CPT-4: 80087 10/21/2009 ([id number]) OFFICE/OUTPA TIENT VISIT, EST Vikki [facility]KE [facility] CPT-4: 99366 09/10/2009 ([id number]) OFFICE/OUTPA TIENT VISIT, EST [facility]ki [facility] CPT-4: 20375 08/11/2009 ([id number]) OFFICE/OUTPA TIENT VISIT, EST Vikki MARTINO [facility] [employer] CPT-4: 94488 06/09/2009 Plan of Care Planned Activity Notes [...] ICD-10 : H65.02 11/07/2018 Appointment: Jennifer Rosario [address] [place] [address] ACUTE ILLNESS 11/07/2018 Visit Diagnosis Plan: Essential [...] : N39.0 08/14/2018 Appointment: Vikki Guaman WPtel: [facility] FOLLOW UP 08/14/2018 Visit Diagnosis Plan: Urinary [...] : I10 05/10/2018 App[facility]ment: [facility] [phone] [facility] [facility] 05/10/2018 Patient Education: metoprolol tartrate- [employer] Coupon [id number] [email or web address] Completed 05/10/2018 Appointment: Vik[facility]el[facility] [phone] [facility] [facility] CANCELED 04/21/2018 Visit Diagnosis Plan: Epigastric pain Discussion: Check CT abdomen/pelvis due to ongoing abdominal pain ICD-9 : 789.06 ICD-10 : R10.13 02/14/2018 Visit Diagnosis Plan: Gastro-esophageal reflux disease without esophagitis Discussion: Continue protonix and carafa te Proceed with updated EGD ICD-9 : 530.81 ICD-10 : K21.9 02/14/2018 Appointment: Vikki Guaman WPtel[facility] [facility] FOLLOW [facility] 02/14/2018 Care Plan: CT PELVIS W/O DYE LOINC : 36743-5 Pending 02/14/2018 Care Plan: CT ABDOMEN W/O DYE LOINC : 99317-1 Pending 02/14/2018 Care Plan: Referral Order SNOMED-CT : [id number] Pending 02/14/2018 Visit Diagnosis Plan: Generalized anxiety [...] Diagnosis Plan: 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 Discussion: S/P cardiac cath--doing medical management with imdur and metoprolol increased Has fwup with cardiology next week Discussed cardiac rehab ICD-9 : 414.00 ICD-10 : I25.10 01/10/2018 Appointment: Vikki Guaman WPtel: [address] [place], [place] [phone] FOLLOW UP 01/10/2018 Visit Diagnosis Plan: Gastro-esophageal [...] : N39.0 12/06/2017 Appointment: Vikki Guaman WPtel: [address] [place], [place] [phone] FOLLOW UP 12/06/2017 Patient Education: Patient Medication Summary Completed 12/06/2017 Appointment: Vikki Guaman WPtel: [address] [place], [place] [phone] US LAB 11/30/2017 Patient Education: Patient Medication [...] : F41.1 11/22/2017 Appointment: Vikki Guaman WPtel: [address] [place] [address] FOLLOW UP 11/22/2017 Patient Education: Patient Medication [...] : K21.9 10/20/2017 Appointment: Vikki Guaman WPtel: [address] [place] [address] ACUTE ILLNESS 10/20/2017 Patient Education: Patient Medication Summary Completed 10/20/2017 Visit Diagnosis Plan: Dizziness and giddiness Discussion: blood work to be completed in office including cmp, cbc, troponin to rule out glucose intolerance, infection, dehydration. instructed patient that she needs to see her skiver counter sooner than oct and patient requested we contact dr. brown's office. will have front office make appt. patient has carotid doppler annually. ICD-9 : 780.4 ICD-10 : R42 09/27/2017 Appointment: Jennifer Rosario [address] [place] [address] ACUTE ILLNESS 09/27/2017 Patient Education: Patient Medication Summary Completed 09/27/2017 Visit Diagnosis Plan: Cervicalgia Di scussion: Complete course of PT since symptoms improved Continue stretching exercises Notify if symptoms return or worsen ICD-9 : 723.1 ICD-10 : M54.2 08/16/2017 Appointment: Vikki Guaman WPtel: [address] [place], [place] [phone] FOLLOW UP 08/16/2017 Patient Education: Patient Medication [...] H81.43 07/07/2017 Appointment: Vikki Guaman WPtel: [phone] [facility] 07/07/2017 Patient Education: Patient Medication Summary Completed 07/07/2017 Care Plan: MRI NECK SPINE W/O DYE LOINC : 02782-5 Pending 07/07/2017 Visit Diagnosis Plan: Benign paroxysmal [...] 05/30/2017 Visit Diagnosis Plan: Otalgia, bilateral Discussion: kenalog 40 mg given to patient im. instructed patient to monitor blood sugar at home due to risk of increased sugar. instructed patient to rtc on tuesday if no improvement and may require antibiotic. ICD-9 : 388.70 ICD-10 : H92.03 05/30/2017 Appointment: Jennifer Rosario [address] [place] [address] ACUTE ILLNESS 05/30/2017 Patient Education: Patient Medication [...] : R10.32 04/18/2017 Appointment: Vikki Guaman WPtel: [address] [place] [address] ACUTE ILLNESS 04/18/2017 Patient Education: Patient Medication Summary Completed 04/18/2017 Appointment: Vikki Guaman WPtel: [address] [place] [address] US INJECTION 12/10/2016 Patient Education: Patient Medication Summary Completed 12/10/2016 Appointment: Vikki Guaman WPtel: [address] [place] [address] LAB 11/01/2016 Patient Education: Patient Medication Summary Completed 11/01/2016 Visit Diagnosis Plan: Pain in thoracic spine Discussion: PT has helped Continue stretches and walking Discussed joining [facility] to continue exercise ICD-9 : 724.1 ICD-10 : M54.6 10/25/2016 Visit Diagnosis Plan: Other intervertebr al disc degeneration, lumbar region Follow Up: 3 months ICD-9 : 722.52 ICD-10 : M51.36 10/25/2016 Appointment: Vikki Guaman WPtel: [address] [place] [address] FOLLOW UP 10/25/2016 Patient Education: Patient Medication [...] : R10.32 09/20/2016 Appointment: Vikki Guaman WPtel: [address] [place] [address] ACUTE ILLNESS 09/20/2016 Patient Education: Patient Medication Summary Completed 09/20/2016 Appointment: Vikki Guaman WPtel: [address] [place] [address] US LAB 05/13/2016 Patient Education: Patient Medication [...] : N64.4 05/12/2016 Appointment: Vikki Guaman WPtel: [address] [place] [address] 3/ confirmed `sl ACUTE ILLNESS 05/12/2016 Patient Education: Patient Medication Summary Completed 05/12/2016 Care Plan: MAMMOGRAM [facility] : 75694-9 Pending 05/12/2016 Visit Diagnosis Plan: Acute upper respir atory infection, unspecified Discussion: Exam is reassuring Likely vi ral illness Supportive care reviewed and encouraged Follow up PRN ICD-9 : 465.9 ICD-10 : J06.9 03/18/2016 Appointment: Yue Moya [address] [place] [address] ACUTE ILLNESS 03/18/2016 Patient Education: Patient Medication Summary Completed 03/18/2016 Visit Plan: Supportive care. Rest, Fluids, Tylenol/Motrin prn fever or bodyaches. Notify if worsening symptoms. 02/06/2016 Appointment: Vikki Guaman WPtel: [address] [place] [address] ACUTE ILLNESS 02/06/2016 Patient Education: Patient Medication Summary Completed 02/06/2016 Appointment: Vikki Guaman WPtel: [facility] [facility] INJECTION 12/12/2015 Patient Education: Patient Medication Summary Completed 12/12/2015 Appointment: Vikki Guaman WPtel: [address] [place], [place] [phone] US LAB 11/25/2015 Patient Education: Patient Medication Summary Completed 11/25/2015 Visit Plan: Add miralax daily Use d aily probiotic and metamucil and push fluids Notify if worsens/persists 08/26/2015 Appointment: Vikki Guaman WPtel: [address] [place], [place] [phone] 08/25/15 confirmed ~sl ACUTE ILLNESS 08/26/2015 Patient Education: Patient Medication Summary Completed 08/26/2015 Visit Plan: No NSAIDs Kidney functi on discussed Discussed hydration Monitor lab every 4months so will check CMP, HbA1C next month 05/21/2015 Visit Plan: No NSAIDs Kidney functi on discussed Discussed hydration Monitor lab every 4months so will check CMP, HbA1C next month 05/21/2015 Appointment: Vikki Guaman WPtel: [address] [place], [place] [phone] 05/19 confirmed ~sl ACUTE ILLNESS 05/21/2015 Patient [...] Chem 7 02/19/2015 Appointment: Vikki Guaman WPtel: [address] [place] [address] 02/18/15 appt confirmed cn FOLLOW UP 02/19/2015 Patient Education: Patient Medication Summary Completed 02/19/2015 Patient Education: Vertigo Completed 02/19/2015 Appointment: Vikki Guaman WPtel: [address] [place] [address] INJECTION 12/20/2014 Patient Education: Patient Medication Summary Completed 12/20/2014 Appointment: Vikki Guaman WPtel: [address] [place] [address] 11/19/2014 Patient Education: Patient Medication Summary Completed 11/19/2014 Referral: Edy Cheek WPtel: [address] Referral Completed 11/18/2014 Appointment: Vikki Guaman WPtel: [address] [place] [address] LAB 11/14/2014 Patient Education: Patient Medication Summary Completed 11/14/2014 Visit Plan: Check CMP, CBC, TSH, Fr ee T4, B12, Lipids, HbA1C Discussed 6 small meals a day each with protein Would likely benefit from antidepressant Update colonoscopy 11/13/2014 Appointment: Vikki Guaman WPtel: [address] [place] [address] 11/12/14 confirmed ACUTE ILLNESS 11/13/2014 Patient Education: Patient Medication Summary Completed 11/13/2014 Visit Plan: Cerumen flush with warm water and peroxide - good results Resume Nasonex nasal spray daily Recommended Debrox earwax removal drops 09/27/2014 Visit Plan: Cerumen flush with warm water and peroxide - good results Resume Nasonex nasal spray daily Recommended Debrox earwax removal drops 09/27/2014 Appointment: Jessenia Francis WPtel: [phone] [place], [place] [id number] ACUTE ILLNESS 09/27/2014 Patient Education: Patient Medication Summary Completed 09/27/2014 Visit Plan: Continue aspirin daily Add meloxicam for 1week Elevate and Ice Call on Tuesday07/11/2014 Appointment: Vikki Guaman WPtel: [address] [place], [place] [phone] ACUTE ILLNESS 07/11/2014 Patient Education: Patient Medication Summary Completed 07/11/2014 Visit Plan: Been using baclofen at bedtime and has helped some PT for next 2-4weeks 05/23/2014 Appointment: Vikki Guaman WPtel: [address] [place], [place] [phone] [place] [address] Follow Up 05/23/2014 Patient Education: Patient Medication Summary Completed 05/23/2014 Appointment: Vikki Guaman WPtel: [address] [place], [place] [phone] LAB 05/10/2014 Appointment: Vikki Guaman WPtel: [address] [place], [place] [phone] feeling better, weather - FOLLOW UP 04/24/2014 Referral: Edy Cheek WPtel: [facility] Referral Appointment Requested 04/03/2014 Visit Plan: Continue exercise and c urrent meds See surgery for removal of right arm lesion 03/20/2014 Appointment: Vikki Guaman WPtel: [address] [place], [place] [phone] FOLLOW UP 03/20/2014 Patient Education: Patient Medication Summary Completed 03/20/2014 Appointment: Vikki Guaman WPtel: [address] [place], [place] [phone] US INJECTION 12/21/2013 Patient Education: Patient Medication Summary Completed 12/21/2013 Visit Plan: Resume Claritin PO yesi y May take Ibuprofen PM at night for sleep Continue Flonase 2 sprays each nostril bid Complete prednisone 20 mg PO bid 10/17/2013 Appointment: Jessenia Francis WPtel: [address] [place], [place] [phone] ACUTE ILLNESS 10/17/2013 Patient Education: Patient Medication Summary Completed 10/17/2013 Visit Plan: Discussed that likely l umbar etiology for leg weakness Will change amlodopine to low dose dyazide and see if helps legs and inner ear 09/24/2013 Appointment: Vikki Guaman WPtel: [address] [place] [address] FOLLOW UP 09/24/2013 Patient Education: Patient Medication Summary Completed 09/24/2013 Visit Plan: Ceftin and continue cla ritin/flonase Decrease amlodopine to 2.5mg q HS until fwup with Card due to weakness 05/31/2013 Appointment: Vikki Guaman WPtel: [address] [place] [address] ACUTE ILLNESS 05/31/2013 Patient Education: Patient Medication Summary Completed 05/31/2013 Appointment: Vikki Guaman WPtel: [address] [place], [place] [phone] LAB 03/28/2013 Patient Education: Patient Medication Summary Completed 03/28/2013 Visit Plan: States she is having he r carotids "done" this Tuesday03/28/13 Return this week for fasting labs. CBC, CMP, TSH Free T4, Lipid Panel and HgbA1C. 03/26/2013 Appointment: Jessenia Francis WPtel: [address] [place], [place] [phone] ACUTE ILLNESS 03/26/2013 Patient Education: Patient Medication Summary Completed 03/26/2013 Visit Plan: Supportive care. Rest, Fluids, Tylenol prn fever or bodyaches. Notify if worsening symptoms. Ceftin 12/19/2012 Appointment: Jessenia rFancis WPtel: [address] [place], [place] [phone] ACUTE ILLNESS 12/19/2012 Patient Education: Patient Medication Summary Completed 12/19/2012 Appointment: Vikki Guaman WPtel: [address] [place], [place] [id number] BP CHECK 12/04/2012 Patient Education: Patient Medication Summary Completed 12/04/2012 Visit Plan: Continue increased dose of metoprolol Moniter BP at home BP check in 1wk Xanax refill to use prn 11/27/2012 Visit Plan: Continue increased dose of metoprolol Moniter BP at home BP check in 1wk 11/27/2012 Appointment: Vikki Guaman WPtel: [address] [place] [address] ER Follow UP 11/27/2012 Patient Education: Patient Medication Summary Completed 11/27/2012 Visit Plan: Restart flonase BID Use meclizine 25mg q HS Vestibular exercises Claritin 10mg q AM See ENT if doesn't resolve 10/04/2012 Appointment: Vikki Guaman WPtel: [address] [place] [address] ACUTE ILLNESS 10/04/2012 Patient Education: Patient Medication Summary Completed 10/04/2012 Visit Plan: Will continue to observ e 07/27/2012 Appointment: Vikki Guaman WPtel: [address] [place], [place] [phone] FOLLOW UP 07/27/2012 Patient Education: Patient Medication [...] ear recheck. 07/14/2012 Appointment: Evelyn Santos WPtel: [address] [place], [place] [phone] ACUTE ILLNESS 07/14/2012 Patient Education: Patient Medication Summary Completed 07/14/2012 Visit Plan: Decrease caffeine intak e Check Bilateral Mammogram with US of left breast 06/08/2012 Appointment: Vikki Guaman WPtel: [address] [place], [place] [phone] ACUTE ILLNESS 06/08/2012 Patient Education: Patient Medication Summary Completed 06/08/2012 Appointment: Alisia Campbell WPtel: [address] [place], [place] [phone] appt scheduled 04/06 ACUTE ILLNESS 04/10/2012 Appointment: Vikki Guaman WPtel: [address] [place] [address] LAB 02/23/2012 Patient Education: Patient Medication Summary [...] T4, HbA1C 02/22/2012 Appointment: Vikki Guaman WPtel: [address] [place], [place] [id number] FOLLOW UP 02/22/2012 Patient Education: Patient Medication Summary Completed 02/22/2012 Visit Plan: Continue carafate for 4 more weeks at current dose then decrease to BID for 2wks then q HS 12/28/2011 Appointment: Vikki Guaman WPtel: [address] [place], [place] [phone] FOLLOW UP 12/28/2011 Patient Education: Patient Medication Summary Completed 12/28/2011 Visit Plan: Continue omeprazole Add Carafate 1gm po q AC Add daily probiotic 12/15/2011 Appointment: Vikki Guaman WPtel: [address] [place], [place] [phone] ACUTE ILLNESS 12/15/2011 Patient Education: Patient Medication Summary Completed 12/15/2011 Appointment: Vikki Guaman WPtel: [address] [place], [place] [phone] US INJECTION 12/02/2011 Patient Education: Patient Medication Summary Completed 12/02/2011 Visit Plan: Diabetic Diet Accucheck s BID alternating times Hold onglyza and Januvia for now and continue diet and exercise and weight loss and moniter BS Discussed hypoglycemia and snack of peanut butter and crackers with juice or milk 09/21/2011 Appointment: Vikki Guaman WPtel: [address] [place] [address] WORK IN 09/21/2011 Patient Education: Patient Medication Summary Completed 09/21/2011 Appointment: Vikki Guamantel: [address] [place] [address] UA 09/16/2011 Patient Education: Patient Medication Summary Completed 09/16/2011 Appointment: Vikki Guamantel: [address] [place] [address] LAB 09/15/2011 Patient Education: Patient Medication Summary Completed 09/15/2011 Visit Plan: Fasting lab to check CM P, Lipids, CBC, TSH, Free T4, HbA1C, Insulin level Hold Zocor for next 2wks 09/13/2011 Appointment: Vikki Guaman WPtel: [address] [place] [address] ACUTE ILLNESS 09/13/2011 Patient Education: Patient Medication Summary Completed 09/13/2011 Visit Plan: Injection to Right SI j oint as above Pt will call in 3 days on pain Has PT starting in 2wks. 08/16/2011 Appointment: Vikki Guamantel: [address] [place] [address] ACUTE ILLNESS 08/16/2011 Patient Education: Patient Medication Summary Completed 08/16/2011 Visit Plan: OMT done Start PT July n eed updated MRI if need to consider epidural Prednisone 08/03/2011 Appointment: Vikki Guaman WPtel: [address] [place] [address] US OMT 08/03/2011 Patient Education: Patient Medication Summary Completed 08/03/2011 Visit Plan: Flexeril and Vimovo OMT done Daily stretches 07/26/2011 Appointment: Vikki Guaman WPtel: [address] [place] [address] ACUTE ILLNESS 07/26/2011 Patient Education: Patient Medication Summary Completed 07/26/2011 Visit Plan: OMT done Daily stretche s Moist heat or biofreeze Right SI joint injection Call in 1week Vimovo BID 06/28/2011 Appointment: Vikki Guaman WPtel: [address] [place] [address] ACUTE ILLNESS 06/28/2011 Patient Education: Patient Medication Summary Completed 06/28/2011 Appointment: Vikki Guaman WPtel: [address] [place] [address] LAB 04/01/2011 Patient Education: Patient Medication Summary Completed 04/01/2011 Visit Plan: Decrease amlodopine to 1.25mg daily Schedule with Cardiology Fasting lab in AM 03/31/2011 Appointment: Vikki Guaman WPtel: [address] [place] [address] ACUTE ILLNESS 03/31/2011 Patient Education: Patient Medication Summary Completed 03/31/2011 Visit Plan: Saline nasal flushes pr n. Tylenol/Motrin prn headache. Notify if persists/symptoms worsening. Cerumen removal from ears as above 02/11/2011 Appointment: Vikki Guaman WPtel: [address] [place] [address] ACUTE ILLNESS 02/11/2011 Patient Education: Patient Medication Summary Completed 02/11/2011 Appointment: Vikki Guaman WPtel: [address] [place] [address] US INJECTION 12/09/2010 Patient Education: Patient Medication Summary Completed 12/09/2010 Visit Plan: Continue vimovo for 1mo re week Increase Omeprazole to BID for 1mo then resume QD if stomach improved Vestibular exercises with meclizine q HS for next week 10/15/2010 Appointment: Vikki Guamantel: [address] [place], [place] [phone] FOLLOW UP 10/15/2010 Patient Education: Patient Medication Summary Completed 10/15/2010 Visit Plan: Trial of Vimovo 50/200m g po BID Check UA 09/29/2010 Appointment: Vikki Guaman WPtel: [address] [place] [address] ACUTE ILLNESS 09/29/2010 Patient Education: Patient Medication Summary Completed 09/29/2010 Appointment: Vikki Guaman WPtel: [address] [place], [place] [id number] LAB 07/06/2010 Patient Education: Patient Medication Summary Completed 07/06/2010 Visit Plan: Saline nasal flushes pr n. Tylenol/Motrin prn headache. Notify if persists/symptoms worsening. Add Veramyst Increase Omeprazole to 20mg po BID 07/02/2010 Appointment: Vikki Guamantel: [address] [place] [address] ACUTE ILLNESS 07/02/2010 Patient Education: Patient Medication Summary Completed 07/02/2010 Visit Plan: Injection to right SI j oint as above Continue Vimovo Daily stretches Pt will call at end of week to let us know how back is doing 04/06/2010 Appointment: Vikki Guaman WPtel: [address] [place], [place] [id number] FOLLOW UP 04/06/2010 Patient Education: Patient Medication Summary Completed 04/06/2010 Visit Plan: Toradol 30mg IM now x1 Vimovo 200/50 po BID Decrease Norvasc to 1/2 tablet daily Increase Lexaprol to 10mg QD 04/01/2010 Appointment: Vikki Guaman WPtel: [address] [place], [place] [phone] ACUTE ILLNESS 04/01/2010 Patient Education: Patient Medication Summary Completed 04/01/2010 Visit Plan: Nasocourt sample given. Pt. will notify if symptoms are worse on Tuesday. 01/22/2010 Appointment: Alisia Campbell WPtel: [address] [place], [place] [id number] ACUTE ILLNESS 01/22/2010 Patient Education: Patient Medication Summary Completed 01/22/2010 Appointment: Vikki Guaman WPtel: [address] [place], [place] [phone] US INJECTION 12/10/2009 Patient Education: Patient Medication Summary Completed 12/10/2009 Visit Plan: Cipro for UTI Cont [place] pro at 5mg QD Flu shot next week 12/02/2009 Appointment: Vikki Guaman WPtel: [address] [place] [address] FOLLOW UP 12/02/2009 Patient Education: Patient Medication [...] with surgery 10/21/2009 Appointment: Vikki Guaman WPtel: [address] [place], [place] [phone] FOLLOW UP 10/21/2009 Patient Education: Patient Medication Summary Completed 10/21/2009 Visit Plan: B12 given Cont oral B12 and iron Fwup 1mo for B12 Proceed with hiatal hernia repair once card clearance 09/10/2009 Appointment: Vikki Guaman WPtel: [address] [place], [place] [phone] US FOLLOW UP 09/10/2009 Patient Education: Patient Medication Summary Completed 09/10/2009 Visit Plan: No caffeine, no nicotin e, no mints, no late meals, elevate HOB 30 degrees Cont. with Nexium See Card to discuss Hiatal Hernia Repair B12 given 08/11/2009 Appointment: Vikki Guaman WPtel: [address] [place] [address] FOLLOW UP 08/11/2009 Patient Education: Patient Medication Summary Completed 08/11/2009 Appointment: Vikki Guaman WPtel: [address] [place] [address] US LAB 06/10/2009 Patient Education: Patient Medication Summary Completed 06/10/2009 Visit Plan: Check fasting lab in AM --CMP,Lipids, CBC, Vit D, TSH,FreeT4, B12 06/09/2009 Appointment: Vikki Guaman WPtel: [address] [place] [address] FOLLOW UP 06/09/2009 Patient Education: Patient Medication Summary Completed 06/09/2009 Referral: Edy Cheek WPtel: #[address] Referral Appointment Requested Referral: Edy Cheek WPtel: #[address] Referral Initiated Instructions Comment . Saline nasal flus hes prn. Tylenol/Motrin prn headache. Notify if persists/symptoms worsening. Cerumen removal from ears as above . ERx for Augmentin 875mg q12 x 10 days and Floxin otic drops 5 gtts AD x7days Sample of Nasonex per pt request Discussed treatment (nasal saline, salt water gargles, keeping right ear clean and dry, for worsening go to UC on weekend, Tylenol/ibuprofen, etc.) RTC 2 weeks for ear recheck. . Add miralax daily Use daily probiotic and metamucil and push fluids Notify if worsens/persists . Continue aspirin d aily Add meloxicam for 1week Elevate and Ice Call on Tuesday . Cipro for UTI Cont Lexapro at 5mg QD Flu shot next week . Continue omeprazol e Add Carafate 1gm po q AC Add daily probiotic . States she is havi ng her carotids "done" this Tuesday03/28/13 Return this week for fasting labs. CBC, CMP, TSH Free T4, Lipid Panel and HgbA1C. . B12 given Cont oral B12 and iron Fwup 1mo for B12 Proceed with hiatal hernia repair once card clearance . Been using baclofe n at bedtime and has helped some PT for next 2-4weeks . Check fasting lab in AM--CMP,Lipids, CBC, Vit D, TSH,FreeT4, B12 . OMT done Start PT May need updated MRI if need to consider epidural Prednisone . Continue increased dose of metoprolol Moniter BP at home BP check in 1wk Xanax refill to use prn . Restart flonase BI D Use meclizine 25mg q HS Vestibular exercises Claritin 10mg q AM See ENT if doesn't resolve . Resume Claritin PO daily May take Ibuprofen PM at night for sleep Continue Flonase 2 sprays each nostril bid Complete prednisone 20 mg PO bid . Fasting lab to [facility] CMP, Lipids, CBC, TSH, Free T4, HbA1C, Insulin level Hold Zocor for next 2wks . Discussed that lik clementine lumbar etiology for leg weakness Will change amlodopine to low dose dyazide and see if helps legs and inner ear . Will continue to o bserve . Injection to right SI joint as above Continue Vimovo Daily stretches Pt will call at end of week to let us know how back is doing . May proceed with h iatal hernia repair per Card. so will contact Dr. Mariscal's office to proceed with surgery Trial of Lexapro 5mg QD plus use xanax prn . May proceed with h iatal hernia repair per Card. so will contact Dr. Mariscal's office to proceed with surgery . Toradol 30mg IM no w x1 Vimovo 200/50 po BID Decrease Norvasc to 1/2 tablet daily Increase Lexaprol to 10mg QD . Decrease amlodopin e to 1.25mg daily Schedule with Cardiology Fasting lab in AM . Continue increased dose of metoprolol Moniter BP at home BP check in 1wk Right SI joint clean sed with alchohol and betadine and injected with 3cc 1% lidocaine with 40mg depomedrol and 40mg kenalog, tolerated well with no complications, neosporin and bandage applied. OMT done Daily stretches Moist heat or biofreeze Right SI joint injection Call in 1week Vimovo BID . No NSAIDs Kidney function discussed Discussed [...] checked in March Check Chem 7 . Cerumen flush with warm water and peroxide - good results Resume Nasonex nasal spray daily Recommended Debrox earwax removal drops . Cerumen flush with warm water and [...] crackers with juice or milk . Continue exercise and current meds See surgery for removal of right arm lesion . Saline nasal flush es prn. Tylenol/Motrin prn headache. Notify if persists/symptoms worsening. Add Veramyst Increase Omeprazole to 20mg po BID . Nasocourt sample g iven. Pt. will notify if symptoms are worse on Tuesday. . Supportive care. Rest, Fluids, Tylenol/Motrin prn [...] Vimov o OMT done Daily stretches . No caffeine, no ni cotine, no mints, no late meals, elevate HOB 30 degrees Cont. with Nexium See Card to discuss Hiatal Hernia Repair B12 given . Supportive care. Rest, Fluids, Tylenol prn fever or bodyaches. Notify if worsening symptoms. Ceftin . Ceftin and continu e claritin/flonase Decrease amlodopine to 2.5mg q HS until fwup with Card due to weakness . Continue off caraf ate and see how does Continue probiotic Add Vestibular exercises and use meclizine prn Continue Nasonex . Check CMP, CBC, TS H, Free T4, B12, Lipids, HbA1C Discussed 6 small meals a day each with protein Would likely benefit from antidepressant Update colonoscopy Left ear flushed wit h warm water and peroxide with ear syringe and then last removed with currette--peroxide drops instilled. Tolerated well, no complications, TM intact.. Continue off carafate and see how does Continue probiotic Add Vestibular exercises and use meclizine prn Continue Nasonex Check fasting lab including CMP, Lipids, CBC, TSH, Free T4, HbA1C Informed Consent obt ainded. Right SI joint cleansed with alcohol and betadine and injected with 3cc 1%l lidocaine with 40mg depomedrol and 40mg kenalog, tolerated well with no complications, neosporin and bandage applied. Injection to Right SI joint as above Pt will call in 3 days on pain Has PT starting in 2wks.
--- OUTSIDE RECORDS SUMMARY | 2019-04-25 20:51 | XMS REPORT | CCD ---
Author Author Evelyne Guaman D.O. Organization VIKKI GUAMAN DO [facility] Address [address] [place] [address] Phone Care Team Providers Care Sack Sewer Name Role Phone Vikki Guaman D.O. PP Unavailable CCM Unavailable Summary Purpose Interface Exchange Insurance Providers Payer name Policy type / Coverage type Covered republican ID Effective Begin Date Effective End Date WPS MEDICARE PART B [place] Medicare Part B [id number] 2017 Unknown [facility] Medicare Part B [id number] Unknown Family history Father Diagnosis Age At Onset Heart disease Unknown Mother Diagnosis Age At Onset Heart disease Unknown Cancer Unknown Social History Social History Element Codes Description Effective Dates Tobacco history SNOMED CT: 829247968 Never smoker 09/29/2010 Marital status Unknown S [...] 11/22/2017 Unknown 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 [...] 11/22/2017 Active 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 [...] Date Stop Date Sta tus Fill Instructions Flonase Allergy Reli ef 50 mcg/actuation nasal spray,suspension RxNorm: 5303933 2 [place] NASAL QHS 11/07/2018 No Stop Date Active simvastatin 40 mg ta blet RxNorm: 869141 1 Tablet(s) PO QD 10/23/2018 01/20/2019 Active simvastatin 40 mg ta blet RxNorm: 937462 1 Tablet(s) PO QD 07/24/2018 10/21/2018 Inactive omeprazole 40 mg cap steven,delayed release RxNorm: 235873 1 Capsule(s) PO QD 07/13/2018 11/09/2018 Ac tive simvastatin 40 mg ta blet RxNorm: 283371 1 Tablet(s) PO QD 06/13/2018 07/12/2018 Inactive omeprazole 40 mg cap steven,delayed release RxNorm: 615818 1 Capsule(s) PO QD 06/13/2018 07/12/2018 In active Bactrim DS 800 mg-16 0 mg tablet RxNorm: 743557 1 Tablet(s) PO BID 05/12/2018 05/18/2018 Inactive Bactrim DS 800 mg-16 0 mg tablet RxNorm: 986668 1 Tablet(s) PO BID 05/12/2018 05/11/2018 Inactive metoprolol tartrate 25 mg tablet RxNorm: 397243 1 Tablet(s) PO BID 05/10/2018 11/05/2018 Inactive Macrobid 100 mg capsule RxNorm: 784492 1 Capsule(s) PO BID 05/10/2018 05/16/2018 Inactive Xanax 0.25 mg tablet RxNorm: 447931 TAKE 1 TABLET BY MOUTH TWICE DAILY 02/16/2018 No Stop Date Active Xanax 0.25 mg tablet RxNorm: 886239 1 Tablet(s) PO BID 02/14/2018 02/16/2018 Inactive Protonix 40 mg table t,delayed release RxNorm: 188922 1 Tablet(s) PO BID fo r stomach--replaces omeprazole 01/10/2018 05/09/2018 Inactive Carafate 1 gram tablet RxNorm: 222433 1 Tablet(s) PO AC & HS 01/10/2018 05/09/2018 Inactive Xanax 0.25 mg tablet RxNorm: 213828 1 Tablet(s) PO BID 01/03/2018 02/13/2018 Inactive Bactrim DS 800 mg-16 0 mg tablet RxNorm: 842605 1 Tablet(s) PO BID 12/08/2017 12/12/2017 Inactive Bactrim DS 800 mg-16 0 mg tablet RxNorm: 351993 1 Tablet(s) PO BID 12/08/2017 12/07/2017 Inactive Carafate 1 gram tablet RxNorm: 967725 1 Tablet(s) PO AC & HS 11/22/2017 12/21/2017 Inactive Protonix 40 mg table t,delayed release RxNorm: 246489 1 Tablet(s) PO BID fo r stomach--replaces omeprazole 11/22/2017 01/09/2018 Inactive Protonix 40 mg table t,delayed release RxNorm: 255982 1 Tablet(s) PO BID fo r stomach--replaces omeprazole 10/20/2017 11/21/2017 Inactive fluticasone 50 mcg/a ctuation nasal spray,suspension RxNorm: 6398686 2 [place] NASAL QD to each nostril 07/07/2017 08/13/2018 Inactive Nasonex 50 mcg/actua tion [place] RxNorm: 0582620 2 [place] NASAL 07/07/2017 07/07/2017 Inactive omeprazole 40 mg cap steven,delayed release RxNorm: 631648 1 Capsule(s) PO QD 04/18/2017 10/19/2017 In active simvastatin 40 mg ta blet RxNorm: 901594 1 Tablet(s) PO QD MALISSA E 1 TABLET EVERY DAY 04/18/2017 04/12/2018 In active metoprolol tartrate 25 mg tablet RxNorm: 609836 1/2 Tablet(s) PO QD 04/18/2017 01/09/2018 Inactive simvastatin 40 mg ta blet RxNorm: 259839 Tablet(s) TAKE 1 TABL ET EVERY DAY 10/27/2016 04/17/2017 In active metoprolol tartrate 25 mg tablet RxNorm: 439182 1/2 Tablet(s) PO QD 09/20/2016 03/18/2017 Inactive Flonase 50 mcg/actua tion nasal spray,suspension RxNorm: 7754385 2 [place] NASAL BID 09/20/2016 04/17/2017 In active omeprazole 40 mg cap steven,delayed release RxNorm: 825486 1 Capsule(s) PO QD 09/08/2016 04/17/2017 In active metoprolol tartrate 25 mg tablet RxNorm: 124189 1/2 Tablet(s) PO QD 06/14/2016 09/19/2016 Inactive ciprofloxacin 0.2 % ear drops in a dropperette RxNorm: 726565 4 Drop(s) OTIC TID fo r 1 week 02/06/2016 05/11/2016 Inactive cefdinir 300 mg capsule RxNorm: 995405 2 Capsule(s) PO QD 02/06/2016 02/15/2016 Inactive omeprazole 40 mg cap steven,delayed release RxNorm: 907451 TAKE 1 CAPSULE EVERY DAY 11/06/2015 09/08/2016 In active simvastatin 40 mg ta blet RxNorm: 532523 TAKE 1 TABLET EVERY DAY 10/08/2015 10/27/2016 Inactive Flonase 50 mcg/actua tion nasal spray,suspension RxNorm: 3596158 2 [place] NASAL BID 02/19/2015 09/19/2016 In active cefuroxime axetil 25 0 mg tablet RxNorm: 993170 1 Tablet(s) PO BID 11/21/2014 11/20/2014 Inactive cefuroxime axetil 25 0 mg tablet RxNorm: 925120 1 Tablet(s) PO BID 11/21/2014 11/27/2014 Inactive omeprazole 40 mg cap steven,delayed release RxNorm: 974775 1 Capsule(s) PO QD 10/09/2014 01/05/2015 In active meloxicam 7.5 mg tablet RxNorm: 229759 1 Tablet(s) PO QD 07/11/2014 08/09/2014 Inactive loratadine 10 mg tablet RxNorm: 354759 1 Tablet(s) PO QAM for allergies 10/17/2013 08/13/2018 In active Flonase 50 mcg/actua tion nasal spray,suspension RxNorm: 345633 2 [place] NASAL BID 10/17/2013 02/18/2015 In active prednisone 20 mg tablet RxNorm: 758574 2 Tablet(s) PO BID 10/17/2013 10/21/2013 Inactive Dyazide 37.5 mg-25 m g capsule RxNorm: 860021 1 Capsule(s) PO QAM 09/24/2013 10/16/2013 Inactive Ceftin 500 mg tablet RxNorm: 091119 1 Tablet(s) PO BID 05/31/2013 06/09/2013 Inactive Ceftin 500 mg tablet RxNorm: 515076 1 Tablet(s) PO BID 03/26/2013 04/04/2013 Inactive simvastatin 40 mg ta blet RxNorm: 605132 Tablet(s) PO TAKE ONE TABLET BY MOUTH EVERY DAY 03/26/2013 10/07/2015 Inactive metoprolol tartrate 25 mg tablet RxNorm: 094921 Tablet(s) PO TAKE ONE -HALF TABLET BY MOUTH EVERY DAY 03/26/2013 11/12/2014 Inactive Ceftin 500 mg tablet RxNorm: 724279 1 Tablet(s) PO BID 12/19/2012 12/28/2012 Inactive loratadine 10 mg tablet RxNorm: 667415 1 Tablet(s) PO QAM for allergies 10/04/2012 12/02/2012 In active omeprazole 20 mg cap steven,delayed release RxNorm: 567432 Capsule(s) PO TAKE ON E CAPSULE BY MOUTH TWICE DAILY 08/09/2012 10/08/2014 Inactive omeprazole 20 mg cap steven,delayed release RxNorm: 937615 1 Capsule(s) PO BID 08/09/2012 05/09/2018 In active Augmentin 875 mg-125 mg tablet RxNorm: 245792 1 Tablet(s) PO Q12H 07/14/2012 07/23/2012 Inactive Floxin Otic Drops 1 bottle Drops RxNorm: 5 Drop(s) OTIC BID 07/14/2012 07/20/2012 Inactive metoprolol tartrate 25 mg tablet RxNorm: 033538 Tablet(s) PO TAKE ONE -HALF TABLET BY MOUTH EVERY DAY 04/11/2012 03/25/2013 Inactive simvastatin 40 mg ta blet RxNorm: 463296 Tablet(s) PO TAKE ONE TABLET BY MOUTH EVERY DAY 04/11/2012 03/25/2013 Inactive lancets RxNorm: Misc Miscellaneous USE ONE TO CHECK GLUC OSE EVERY DAY 04/04/2012 05/09/2018 In active Carafate 1 gram tablet RxNorm: 438703 1 Tablet(s) PO AC & HS 02/22/2012 11/12/2014 Inactive Flagyl 500 mg tablet RxNorm: 591240 1 Tablet(s) PO TID 12/15/2011 12/21/2011 Inactive Carafate 1 gram tablet RxNorm: 390143 1 Tablet(s) PO AC & HS 12/15/2011 02/12/2012 Inactive One Touch Test strips RxNorm: Miscellaneous QD 09/21/2011 05/09/2018 Inactive one touch ultra mini test strips Protonix 40 mg Tab RxNorm: 847494 1 Tablet(s) PO QD 09/13/2011 09/12/2011 Inactive Protonix 40 mg Tab RxNorm: 237827 1 Tablet(s) PO QD 09/13/2011 12/14/2011 Inactive prednisone 20 mg Tab RxNorm: 531839 1 Tablet(s) PO BID 08/03/2011 08/09/2011 Inactive Flexeril 5 mg Tab RxNorm: 416746 1 Tablet(s) PO QHS for spasm 07/26/2011 08/24/2011 Inactive Flexeril 5 mg Tab RxNorm: 699233 1 Tablet(s) PO QHS for spasm 06/28/2011 07/25/2011 Inactive amlodipine 2.5 mg Tab RxNorm: 265661 1/2 Tablet(s) PO QD replaces 5mg dose 03/31/2011 06/27/2011 In active simvastatin 40 mg ta blet RxNorm: 904938 1 Tablet(s) PO QD 03/31/2011 03/24/2012 Inactive metoprolol tartrate 25 mg tablet RxNorm: 873718 1/2 Tablet(s) PO QD 03/31/2011 03/24/2012 Inactive omeprazole 20 mg cap steven,delayed release RxNorm: 912889 1 Capsule(s) PO BID 03/31/2011 09/12/2011 In active cefdinir 300 mg Cap RxNorm: 854818 2 Capsule(s) PO QD 02/11/2011 02/20/2011 Inactive simvastatin 40 mg Tab RxNorm: 210474 1 Tablet(s) PO QD 02/01/2011 03/30/2011 Inactive metoprolol tartrate 25 mg Tab RxNorm: 467337 1/2 Tablet(s) PO QD 12/29/2010 03/30/2011 Inactive metoprolol tartrate 25 mg Tab RxNorm: 638653 1/2 Tablet(s) PO QD 12/28/2010 12/28/2010 Inactive meclizine 25 mg Tab RxNorm: 1535971 1 Tablet(s) PO QHS 10/15/2010 11/13/2010 Inactive for dizziness Ceftin 500 mg Tab RxNorm: 604031 1 Tablet(s) PO BID 07/02/2010 07/11/2010 Inactive omeprazole 20 mg Cap , Delayed Release RxNorm: 901985 1 Capsule(s) PO BID 07/02/2010 12/28/2010 In active simvastatin 40 mg Tab RxNorm: 083259 1 Tablet(s) PO QD 06/30/2010 05/09/2018 Inactive simvastatin 40 mg Tab RxNorm: 769193 1 Tablet(s) PO QD 06/30/2010 01/25/2011 Inactive simvastatin 40 mg Tab RxNorm: 408065 1 Tablet(s) PO QD 02/25/2010 06/30/2010 Inactive Tessalon Perles 100 mg Cap RxNorm: 412051 1 Capsule(s) PO Q6-8H 01/22/2010 01/28/2010 Inactive cefdinir 300 mg Cap RxNorm: 081907 1 Capsule(s) PO BID 01/22/2010 01/31/2010 Inactive Lexapro 10 mg Tab RxNorm: 231895 1 Tablet(s) PO QD 12/02/2009 01/30/2010 Inactive Cipro 250 mg Tab RxNorm: 186216 1 Tablet(s) PO BID 12/02/2009 12/08/2009 Inactive Wellbutrin XL 150 mg 24 hr Tab RxNorm: 371833 1 Tablet(s) PO QAM 06/09/2009 08/07/2009 Inactive Fish Oil 1,000 mg Cap RxNorm: 1 Capsule(s) PO QD No Start Date Active Tylenol Extra Streng th 500 mg tablet RxNorm: 465120 1/2 Tablet(s) PO as n eeded No Start Date Active nitroglycerin 0.4 mg sublingual tablet RxNorm: 399716 Tablet(s) SL as neede d No Start Date Active Calcium with Vitamin D 600 mg (1,500 mg)-400 unit tablet RxNorm: 179393 1 Tablet(s) PO QD No Start Date Active Multivitamin & Commissary Agent al Formula Tab RxNorm: 1 Tablet(s) PO QD No Start Date Active vitamin B complex ca psule RxNorm: 1 Capsule(s) PO QD No Start Date Active Aspirin 81 mg Tab RxNorm: 814736 1 Tablet(s) PO QD No Start Date Active isosorbide mononitra te ER 30 mg tablet,extended release 24 hr RxNorm: 642806 1 Tablet(s) PO QHS No Start Date Active Vitamin D 1,000 unit Cap RxNorm: 392229 1 Capsule(s) PO QD No Start Date Active Co Q-10 oral RxNorm: 74403 oral No Start Date Active metoprolol tartrate 25 mg Tab RxNorm: 954126 1/2 Tablet(s) PO QD No Start Date 12/27/2010 Inactive Nasonex 50 mcg/actua tion [place] RxNorm: 2191763 2 [place] NASAL No Start Date 07/06/2017 Inactive Vitamin B12 1000mcg Tablet RxNorm: 1 Tablet(s) PO QD No Start Date 11/12/2014 Inactive amlodipine 5 mg Tab RxNorm: 259721 1 Tablet(s) PO QD No Start Date 03/30/2011 Inactive simvastatin 40 mg ta blet RxNorm: 638672 1 Tablet(s) PO QD No Start Date 06/12/2018 Inactive omeprazole 20 mg cap steven,delayed release RxNorm: 837698 1 Capsule(s) PO BID No Start Date 08/08/2012 Inactive omeprazole 40 mg cap steven,delayed release RxNorm: 401291 1 Capsule(s) PO QD No Start Date 06/12/2018 Inactive Nexium 40 mg Cap RxNorm: 309022 1 Capsule(s) PO QD No Start Date 01/21/2010 Inactive Stool Softener 100 m g Tab RxNorm: 5942418 2 Tablet(s) PO BID No Start Date 03/30/2011 Inactive Calcium with Vitamin D 600 mg (1,500 mg)-400 unit Tab RxNorm: 318821 1 Tablet(s) PO QD No Start Date 11/12/2014 Inactive iron 325 mg (65 mg i yajaira) Tab RxNorm: 037568 1 Tablet(s) PO QD No Start Date 11/12/2014 Inactive Flonase 50 mcg/actua tion Nasal [place] RxNorm: 237463 2 [place] NASAL BID No Start Date 10/16/2013 Inactive fluticasone 50 mcg/a ctuation nasal spray,suspension RxNorm: 6449457 2 [place] NASAL QD to each nostril No Start Date 07/06/2017 Inactive Nasonex 50 mcg/actua tion [place] RxNorm: 2872308 2 [place] NASAL QD No Start Date 07/06/2017 Inactive hydralazine 50 mg ta blet RxNorm: 723385 1 Tablet(s) PO as nee ded for BP over 160/90 No Start Date 11/21/2017 Inactive Vimovo 500 mg-20 mg 12 hr Tab RxNorm: 400003 1 Tablet(s) PO BID No Start Date 02/10/2011 Inactive Tylenol PM 25 mg-500 mg/15 mL Oral Soln RxNorm: 0589124 1 PO QPM No Start Date 11/12/2014 Inactive Iron (Ferrous Sulfat e) Oral RxNorm: Oral No Start D ate 03/30/2011 Inactive Reglan 10 mg Tab RxNorm: 453003 1 Tablet(s) PO TID before meals No Start Date 02/10/2011 Inactive Xanax 1 mg Tab RxNorm: 959302 1/2 Tablet(s) PO QD No Start Date 11/21/2017 Inactive amlodipine 10 mg tablet RxNorm: 445050 1 Tablet(s) PO QD No Start Date 09/23/2013 Inactive Iron (dried) Oral RxNorm: Oral No Start Date 03/30/2011 Inactive metoprolol tartrate 50 mg tablet RxNorm: 897949 1 Tablet(s) PO BID No Start Date 02/13/2018 Inactive Xanax 0.25 mg tablet RxNorm: 578349 1 Tablet(s) PO BID No Start Date 01/02/2018 Inactive lancets RxNorm: Miscellaneous check blood sugar at least once daily No Start Date 04/03/2012 Inactive simvastatin 40 mg Tab RxNorm: 297480 1 Tablet(s) PO QD No Start Date 02/24/2010 Inactive isosorbide mononitra te ER 30 mg tablet,extended release 24 hr RxNorm: 157974 1 Tablet(s) PO QHS No Start Date 08/13/2018 Inactive amlodipine 2.5 mg ta blet RxNorm: 321336 1 Tablet(s) PO QD No Start Date 09/23/2013 Inactive sucralfate 1 gram ta blet RxNorm: 878001 1 Tablet(s) PO QID No Start Date 05/09/2018 Inactive Fish Oil Oral RxNorm: Oral No Start Date 03/31/2011 Inactive Multiple Vitamin Oral RxNorm: Oral No Start Date 03/31/2011 Inactive metoprolol tartrate 25 mg tablet RxNorm: 470409 1/2 Tablet(s) PO QD No Start Date 06/13/2016 Inactive metoprolol tartrate 50 mg tablet RxNorm: 391656 1/2 Tablet(s) PO BID No Start Date 05/09/2018 Inactive Flonase Allergy Reli ef 50 mcg/actuation nasal spray,suspension RxNorm: 8834559 2 [place] NASAL QHS No Start Date 11/06/2018 Inactive [...] ICD-9: 300.00 01/10/2018 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 While at [employer] began to feel very ill and became [...] Item Item Code Result Date GFR CALC 6858108 GFR Non Afr Amr 48 mL/min 08/14/2018 GFR CALC 7101986 GFR Afr Amr 59 mL/min 08/14/2018 THYROID STIMULATING HORMONE 53990 TSH 1.936 uIU/mL 201 9 COMPREHENSIVE METABOLIC 50407 AST 18 U/L 08/14/2018 COMPREHENSIVE METABOLIC 52938 ALT 11 U/L 08/14/2018 COMPREHENSIVE METABOLIC 62249 BUN 18 mg/dL 08/14/2018 COMPREHENSIVE METABOLIC 94544 ALBUMIN 4.2 g/dL 08/14/2018 COMPREHENSIVE METABOLIC 16900 CHLORIDE 109 mmol/L 08/14/2018 COMPREHENSIVE METABOLIC 62318 Bili Total 0.4 mg/dL 08/14/2018 COMPREHENSIVE METABOLIC 57476 ALK PHOS 64 U/L 08/14/2018 COMPREHENSIVE METABOLIC 70964 SODIUM 142 mmol/L 08/14/2018 COMPREHENSIVE METABOLIC 09943 CREATININE 1.09 mg/dL 08/14/2018 COMPREHENSIVE METABOLIC 34323 CALCIUM 9.3 mg/dL 08/14/2018 COMPREHENSIVE METABOLIC 73417 POTASSIUM 4.7 mmol/L 08/14/2018 COMPREHENSIVE METABOLIC 41177 Total Protein 6.3 g/dL 08/14/2018 COMPREHENSIVE METABOLIC 10674 Glucose 84 mg/dL 08/14/2018 COMPREHENSIVE METABOLIC 03463 Bicarbonate 25 mmol/L 08/14/2018 COMPREHENSIVE METABOLIC 82099 AGAP 8 mmol/L 08/14/2018 COMPLETE BLOOD COUNT 4501748 WBC 7.8 10e9/L 08/14/2018 COMPLETE BLOOD COUNT 3185144 RBC 4.04 10e12/L 9 COMPLETE BLOOD COUNT 3091938 HEMOGLOBIN 12.2 g/dL 08/14/2018 COMPLETE BLOOD COUNT 2098115 HEMATOCRIT 38.6 % 08/14/2018 COMPLETE BLOOD COUNT 2563059 MCV 95.5 fL 08/14/2018 COMPLETE BLOOD COUNT 1462674 MCH 30.2 pg 08/14/2018 COMPLETE BLOOD COUNT 4769469 MCHC 31.6 g/dL 08/14/2018 COMPLETE BLOOD COUNT 5540045 PLATELET COUNT 215 10e9/L 08/14/2018 COMPLETE BLOOD COUNT 1935318 Mean Plt Volume 11.2 fL 08/14/2018 COMPLETE BLOOD COUNT 6752527 Neut Auto 45.7 % 08/14/2018 COMPLETE BLOOD COUNT 0032291 Lymph Auto 42.1 % 08/14/2018 COMPLETE BLOOD COUNT 5635040 Hardin Auto 9.2 % 08/14/2018 COMPLETE BLOOD COUNT 5704755 RDW 13.4 % 08/14/2018 COMPLETE BLOOD COUNT 6971185 Eos Auto 2.7 % 08/14/2018 COMPLETE BLOOD COUNT 1250948 Baso Auto 0.3 % 08/14/2018 COMPLETE BLOOD COUNT 5080491 Neutrophil Abs 3.56 10e9/L 08/14/2018 COMPLETE BLOOD COUNT 8589366 Lymphocyte Abs 3.28 10e9/L 08/14/2018 COMPLETE BLOOD COUNT 7012376 Monocyte Abs 0.72 10e9/L 08/14/2018 COMPLETE BLOOD COUNT 0349921 Eosinophil Abs 0.21 10e9/L 08/14/2018 COMPLETE BLOOD COUNT 6099457 RDW-SD 44.9 fL 08/14/2018 COMPLETE BLOOD COUNT 4382421 Basophil Abs 0.02 10e9/L 08/14/2018 COMPLETE BLOOD COUNT 3010462 WBC 5.2 10e9/L 11/30/2017 COMPLETE BLOOD COUNT 2571137 RBC 4.21 10e12/L 8 COMPLETE BLOOD COUNT 3933708 HEMOGLOBIN 12.8 g/dL 11/30/2017 COMPLETE BLOOD COUNT 8429496 HEMATOCRIT 39.0 % 11/30/2017 COMPLETE BLOOD COUNT 5222048 MCV 92.6 fL 11/30/2017 COMPLETE BLOOD COUNT 2154546 MCH 30.4 pg 11/30/2017 COMPLETE BLOOD COUNT 9098422 MCHC 32.8 g/dL 11/30/2017 COMPLETE BLOOD COUNT 9889563 PLATELET COUNT 202 10e9/L 11/30/2017 COMPLETE BLOOD COUNT 7350737 Mean Plt Volume 10.7 fL 11/30/2017 COMPLETE BLOOD COUNT 2452403 Neut Auto 40.9 % 11/30/2017 COMPLETE BLOOD COUNT 3608128 Lymph Auto 46.3 % 11/30/2017 COMPLETE BLOOD COUNT 9882660 Hardin Auto 9.3 % 11/30/2017 COMPLETE BLOOD COUNT 6842634 RDW 13.7 % 11/30/2017 COMPLETE BLOOD COUNT 5550029 Eos Auto 2.9 % 11/30/2017 COMPLETE BLOOD COUNT 7412610 Baso Auto 0.6 % 11/30/2017 COMPLETE BLOOD COUNT 6982628 Neutrophil Abs 2.13 10e9/L 11/30/2017 COMPLETE BLOOD COUNT 1451053 Lymphocyte Abs 2.41 10e9/L 11/30/2017 COMPLETE BLOOD COUNT 2295017 Monocyte Abs 0.48 10e9/L 11/30/2017 COMPLETE BLOOD COUNT 1491335 Eosinophil Abs 0.15 10e9/L 11/30/2017 COMPLETE BLOOD COUNT 7011660 RDW-SD 45.2 fL 11/30/2017 COMPLETE BLOOD COUNT 1967913 Basophil Abs 0.03 10e9/L 11/30/2017 [place] [address] Glucose 118 mg/dL 11/30/2017 [place] [address] CREATININE 1.01 mg/dL 11/30/2017 [place] [address] BUN 14 mg/dL 11/30/2017 [place] [address] SODIUM 141 mmol/L 11/30/2017 [place] [address] POTASSIUM 4.0 mmol/L 11/30/2017 [place] [address] CHLORIDE 108 mmol/L 11/30/2017 [place] [address] Bicarbonate 25 mmol/L 11/30/2017 [place] [address] AGAP 8 mmol/L 11/30/2017 [place] [address] CALCIUM 9.6 mg/dL 11/30/2017 FREE T4 19681 T4 Free 1.23 ng/dL 11/30/2017 GFR CALC 9968137 GFR Non Afr Amr 53 mL/min 11/30/2017 GFR CALC 4616893 GFR Afr Amr >60 mL/min 11/30/2017 THYROID STIMULATING HORMONE 82018 TSH 2.124 uIU/mL 8 [facility] 30013 Choles terol 152 mg/dL 09/28/2017 LIP[facility] GROUP 73233 Trigly ceride 151 mg/dL 09/28/2017 [facility] 72111 HDL CH OLESTEROL 47 mg/dL 09/28/2017 [facility] 53807 Chol/H DL Ratio 3.23 ratio 09/28/2017 L[facility] GROUP 80186 NON-HD L Chol 105 mg/dL 09/28/2017 LIP[facility] GROUP 62381 LDL Ch olesterol 75 mg/dL 09/28/2017 ASSAY OF TROPONIN QUANT 33023 Troponin-I <0.30 ng/mL 09/27/2017 COMPREHENSIVE METABOLIC 57557 AST 20 U/L 09/27/2017 COMPREHENSIVE METABOLIC 52449 ALT 14 U/L 09/27/2017 COMPREHENSIVE METABOLIC 93457 BUN 19 mg/dL 09/27/2017 COMPREHENSIVE METABOLIC 56737 ALBUMIN 4.2 g/dL 09/27/2017 COMPREHENSIVE METABOLIC 26497 CHLORIDE 102 mmol/L 09/27/2017 COMPREHENSIVE METABOLIC 98881 Bili Total 0.4 mg/dL 09/27/2017 COMPREHENSIVE METABOLIC 17091 ALK PHOS 66 U/L 09/27/2017 COMPREHENSIVE METABOLIC 66524 SODIUM 135 mmol/L 09/27/2017 COMPREHENSIVE METABOLIC 26739 CREATININE 1.01 mg/dL 09/27/2017 COMPREHENSIVE METABOLIC 72510 CALCIUM 9.3 mg/dL 09/27/2017 COMPREHENSIVE METABOLIC 71903 POTASSIUM 4.8 mmol/L 09/27/2017 COMPREHENSIVE METABOLIC 11803 Total Protein 7.0 g/dL 09/27/2017 COMPREHENSIVE METABOLIC 07206 Glucose 91 mg/dL 09/27/2017 COMPREHENSIVE METABOLIC 38537 Bicarbonate 23 mmol/L 09/27/2017 COMPREHENSIVE METABOLIC 97476 AGAP 10 mmol/L 09/27/2017 COMPLETE BLOOD COUNT 0922388 WBC 7.5 10e9/L 09/27/2017 COMPLETE BLOOD COUNT 8680190 RBC 4.13 10e12/L 8 COMPLETE BLOOD COUNT 9865132 HEMOGLOBIN 12.6 g/dL 09/27/2017 COMPLETE BLOOD COUNT 7358148 HEMATOCRIT 38.4 % 09/27/2017 COMPLETE BLOOD COUNT 5421800 MCV 93.0 fL 09/27/2017 COMPLETE BLOOD COUNT 4080953 MCH 30.5 pg 09/27/2017 COMPLETE BLOOD COUNT 2055112 MCHC 32.8 g/dL 09/27/2017 COMPLETE BLOOD COUNT 8390937 PLATELET COUNT 204 10e9/L 09/27/2017 COMPLETE BLOOD COUNT 0998004 Mean Plt Volume 10.9 fL 09/27/2017 COMPLETE BLOOD COUNT 2028600 Neut Auto 43.1 % 09/27/2017 COMPLETE BLOOD COUNT 0739872 Lymph Auto 45.0 % 09/27/2017 COMPLETE BLOOD COUNT 6322446 [place]in Auto 9.2 % 09/27/2017 COMPLETE BLOOD COUNT 7369301 RDW 13.4 % 09/27/2017 COMPLETE BLOOD COUNT 9819203 Eos Auto 2.3 % 09/27/2017 COMPLETE BLOOD COUNT 4248505 Baso Auto 0.4 % 09/27/2017 COMPLETE BLOOD COUNT 6702652 Neutrophil Abs 3.23 10e9/L 09/27/2017 COMPLETE BLOOD COUNT 1860607 Lymphocyte Abs 3.38 10e9/L 09/27/2017 COMPLETE BLOOD COUNT 3998416 Monocyte Abs 0.69 10e9/L 09/27/2017 COMPLETE BLOOD COUNT 9620527 Eosinophil Abs 0.17 10e9/L 09/27/2017 COMPLETE BLOOD COUNT 2087273 RDW-SD 44.4 fL 09/27/2017 COMPLETE BLOOD COUNT 8029859 Basophil Abs 0.03 10e9/L 09/27/2017 GFR CALC 5026715 GFR Non Afr Amr 53 mL/min 09/27/2017 GFR CALC 8946232 GFR Afr Amr >60 mL/min 09/27/2017 GLYCOSYLATED HEMOGLOBIN TEST 42055 Hgb A1c 33617-8 5.4 % 09/27/2017 MEAN GLUC Calc M steven Gluc 108 mg/dL 09/27/2017 MEAN GLUC Calc M steven Gluc 114 mg/dL 11/01/2016 LIPID GROUP 84894 Choles terol 146 mg/dL 11/01/2016 LIPID GROUP 80850 Trigly ceride 119 mg/dL 11/01/2016 LIP[facility] GROUP 34298 HDL CH OLESTEROL 47 mg/dL 11/01/2016 LIPID GROUP 77470 Chol/H DL Ratio 3.11 ratio 11/01/2016 LIPID GROUP 73960 NON-HD L Chol 99 mg/dL 11/01/2016 LIPID GROUP 77778 LDL Ch olesterol 75 mg/dL 11/01/2016 GLYCOSYLATED HEMOGLOBIN TEST 16583 Hgb A1c 11678-9 5.6 % 11/01/2016 COMPREHENSIVE METABOLIC 14724 AST 22 U/L 11/01/2016 COMPREHENSIVE METABOLIC 96313 ALT 12 U/L 11/01/2016 COMPREHENSIVE METABOLIC 32583 BUN 17 mg/dL 11/01/2016 COMPREHENSIVE METABOLIC 87512 ALBUMIN 4.0 g/dL 11/01/2016 COMPREHENSIVE METABOLIC 75474 CHLORIDE 110 mmol/L 11/01/2016 COMPREHENSIVE METABOLIC 29512 Bili Total 0.4 mg/dL 11/01/2016 COMPREHENSIVE METABOLIC 13779 ALK PHOS 63 U/L 11/01/2016 COMPREHENSIVE METABOLIC 03591 SODIUM 140 mmol/L 11/01/2016 COMPREHENSIVE METABOLIC 29475 CREATININE 1.05 mg/dL 11/01/2016 COMPREHENSIVE METABOLIC 13442 CALCIUM 9.2 mg/dL 11/01/2016 COMPREHENSIVE METABOLIC 02498 POTASSIUM 4.2 mmol/L 11/01/2016 COMPREHENSIVE METABOLIC 60667 Total Protein 6.2 g/dL 11/01/2016 COMPREHENSIVE METABOLIC 84727 Glucose 87 mg/dL 11/01/2016 COMPREHENSIVE METABOLIC 26372 Bicarbonate 24 mmol/L 11/01/2016 COMPREHENSIVE METABOLIC 50591 AGAP 6 mmol/L 11/01/2016 GFR CALC 9655195 GFR Non Afr Amr 51 mL/min 11/01/2016 GFR CALC 5685682 GFR Afr Amr >60 mL/min 11/01/2016 COMPLETE BLOOD COUNT 1629840 WBC 6.7 10e9/L 11/01/2016 COMPLETE BLOOD COUNT 4804954 RBC 4.04 10e12/L 7 COMPLETE BLOOD COUNT [id number] HEMOGLOBIN 12.1 g/dL 11/01/2016 COMPLETE BLOOD COUNT 7315890 HEMATOCRIT 38.0 % 11/01/2016 COMPLETE BLOOD COUNT 6978140 MCV 94.1 fL 11/01/2016 COMPLETE BLOOD COUNT 8677720 MCH 30.0 pg 11/01/2016 COMPLETE BLOOD COUNT 3380915 MCHC 31.8 g/dL 11/01/2016 COMPLETE BLOOD COUNT 7128937 PLATELET COUNT 206 10e9/L 11/01/2016 COMPLETE BLOOD COUNT 6774924 Mean Plt Volume 11.3 fL 11/01/2016 COMPLETE BLOOD COUNT [id number] Neut Auto 35.8 % 11/01/2016 COMPLETE BLOOD COUNT 2110256 Lymph Auto 51.6 % 11/01/2016 COMPLETE BLOOD COUNT 6829216 Hardin Auto 8.8 % 11/01/2016 COMPLETE BLOOD COUNT 3300983 RDW 13.5 % 11/01/2016 COMPLETE BLOOD COUNT 4661590 Eos Auto 3.4 % 11/01/2016 COMPLETE BLOOD COUNT 4195551 Baso Auto 0.4 % 11/01/2016 COMPLETE BLOOD COUNT 7927363 Neutrophil Abs 2.40 10e9/L 11/01/2016 COMPLETE BLOOD COUNT 7894894 Lymphocyte Abs 3.46 10e9/L 11/01/2016 COMPLETE BLOOD COUNT 8524501 Monocyte Abs 0.59 10e9/L 11/01/2016 COMPLETE BLOOD COUNT 1980929 Eosinophil Abs 0.23 10e9/L 11/01/2016 COMPLETE BLOOD COUNT 8983082 RDW-SD 45.3 fL 11/01/2016 COMPLETE BLOOD COUNT 1545640 Basophil Abs 0.03 10e9/L 11/01/2016 THYROID STIMULATING HORMONE 85670 TSH 1.981 uIU/mL 7 COMPLETE BLOOD COUNT 3315765 WBC 6.0 10e9/L 05/13/2016 COMPLETE BLOOD COUNT [id number] RBC 4.29 10e12/L 7 COMPLETE BLOOD COUNT [id number] HEMOGLOBIN 12.9 g/dL 05/13/2016 COMPLETE BLOOD COUNT 6419661 HEMATOCRIT 38.4 % 05/13/2016 COMPLETE BLOOD COUNT 0186709 MCV 89.5 fL 05/13/2016 COMPLETE BLOOD COUNT 3200753 MCH 30.1 pg 05/13/2016 COMPLETE BLOOD COUNT 8953686 MCHC 33.6 g/dL 05/13/2016 COMPLETE BLOOD COUNT 6426364 PLATELET COUNT 181 10e9/L 05/13/2016 COMPLETE BLOOD COUNT 9780100 Mean Plt Volume 11.7 fL 05/13/2016 COMPLETE BLOOD COUNT 1350637 Neut Auto 36.9 % 05/13/2016 COMPLETE BLOOD COUNT 3065126 Lymph Auto 50.4 % 05/13/2016 COMPLETE BLOOD COUNT 7069795 Hardin Auto 9.0 % 05/13/2016 COMPLETE BLOOD COUNT 2730249 RDW 13.7 % 05/13/2016 COMPLETE BLOOD COUNT 9490988 Eos Auto 3.4 % 05/13/2016 COMPLETE BLOOD COUNT 5803966 Baso Auto 0.3 % 05/13/2016 COMPLETE BLOOD COUNT 8581166 Neutrophil Abs 2.21 10e9/L 05/13/2016 COMPLETE BLOOD COUNT 9856150 Lymphocyte Abs 3.02 10e9/L 05/13/2016 COMPLETE BLOOD COUNT 3571380 Monocyte Abs 0.54 10e9/L 05/13/2016 COMPLETE BLOOD COUNT 6997972 Eosinophil Abs 0.20 10e9/L 05/13/2016 COMPLETE BLOOD COUNT 3646368 RDW-SD 44.0 fL 05/13/2016 COMPLETE BLOOD COUNT 2420802 Basophil Abs 0.02 10e9/L 05/13/2016 GLYCOSYLATED HEMOGLOBIN TEST 41012 Hgb A1c 03959-9 5.4 % 05/13/2016 THYROID STIMULATING HORMONE 18805 TSH 2.200 uIU/mL 7 GFR CALC 1544209 GFR Non Afr Amr 50 mL/min 05/13/2016 GFR CALC 7888678 GFR Afr Amr >60 mL/min 05/13/2016 MEAN GLUC 1198883 Calc M steven Gluc 108 mg/dL 05/13/2016 COMPREHENSIVE METABOLIC 35497 AST 18 U/L 05/13/2016 COMPREHENSIVE METABOLIC 87563 ALT 10 U/L 05/13/2016 COMPREHENSIVE METABOLIC 00889 BUN 20 mg/dL 05/13/2016 COMPREHENSIVE METABOLIC 42244 ALBUMIN 4.1 g/dL 05/13/2016 COMPREHENSIVE METABOLIC 42795 CHLORIDE 109 mmol/L 05/13/2016 COMPREHENSIVE METABOLIC 50114 Bili Total 0.6 mg/dL 05/13/2016 COMPREHENSIVE METABOLIC 25167 ALK PHOS 64 U/L 05/13/2016 COMPREHENSIVE METABOLIC 44519 SODIUM 141 mmol/L 05/13/2016 COMPREHENSIVE METABOLIC 89521 CREATININE 1.06 mg/dL 05/13/2016 COMPREHENSIVE METABOLIC 33881 CALCIUM 9.9 mg/dL 05/13/2016 COMPREHENSIVE METABOLIC 62016 POTASSIUM 4.2 mmol/L 05/13/2016 COMPREHENSIVE METABOLIC 56351 Total Protein 6.3 g/dL 05/13/2016 COMPREHENSIVE METABOLIC 38339 Glucose 99 mg/dL 05/13/2016 COMPREHENSIVE METABOLIC 76769 Bicarbonate 21 mmol/L 05/13/2016 COMPREHENSIVE METABOLIC 58027 AGAP 11 mmol/L 05/13/2016 LIPID GROUP 22259 Choles terol 169 mg/dL 11/25/2015 LIPID GROUP 32258 Trigly ceride 165 mg/dL 11/25/2015 LIPID GROUP 26720 HDL CH OLESTEROL 43 mg/dL 11/25/2015 LIPID GROUP 88378 Chol/H DL Ratio 3.93 ratio 11/25/2015 LIPID GROUP 44112 NON-HD L Chol 126 mg/dL 11/25/2015 LIPID GROUP 35585 LDL Ch olesterol 93 mg/dL 11/25/2015 COMPREHENSIVE METABOLIC 20459 AST 18 U/L 11/25/2015 COMPREHENSIVE METABOLIC 49062 ALT 10 U/L 11/25/2015 COMPREHENSIVE METABOLIC 77629 BUN 20 mg/dL 11/25/2015 COMPREHENSIVE METABOLIC 44238 ALBUMIN 3.9 g/dL 11/25/2015 COMPREHENSIVE METABOLIC 67828 CHLORIDE 110 mmol/L 11/25/2015 COMPREHENSIVE METABOLIC 00968 Bili Total 0.5 mg/dL 11/25/2015 COMPREHENSIVE METABOLIC 25891 ALK PHOS 72 U/L 11/25/2015 COMPREHENSIVE METABOLIC 78961 SODIUM 141 mmol/L 11/25/2015 COMPREHENSIVE METABOLIC 54440 CREATININE 1.12 mg/dL 11/25/2015 COMPREHENSIVE METABOLIC 33496 CALCIUM 9.7 mg/dL 11/25/2015 COMPREHENSIVE METABOLIC 99392 POTASSIUM 4.4 mmol/L 11/25/2015 COMPREHENSIVE METABOLIC 56081 Total Protein 6.2 g/dL 11/25/2015 COMPREHENSIVE METABOLIC 80899 Glucose 90 mg/dL 11/25/2015 COMPREHENSIVE METABOLIC 99938 Bicarbonate 23 mmol/L 11/25/2015 COMPREHENSIVE METABOLIC 83170 AGAP 8 mmol/L 11/25/2015 GFR CALC 5549650 GFR Non Afr Amr 47 mL/min 11/25/2015 GFR CALC 4456089 GFR Afr Amr 57 mL/min 11/25/2015 GLYCOSYLATED HEMOGLOBIN TEST 91056 Hgb A1c 91998-7 5.5 % 11/25/2015 THYROID STIMULATING HORMONE 25302 TSH 2.537 uIU/mL 6 FREE T4 97899 T4 Free 1.36 ng/dL 11/25/2015 COMPLETE BLOOD COUNT 3774175 WBC 6.8 10e9/L 11/25/2015 COMPLETE BLOOD COUNT 2816006 RBC 4.20 10e12/L 6 COMPLETE BLOOD COUNT 1083306 HEMOGLOBIN 12.5 g/dL 11/25/2015 COMPLETE BLOOD COUNT 9622243 HEMATOCRIT 38.0 % 11/25/2015 COMPLETE BLOOD COUNT 9841930 MCV 90.5 fL 11/25/2015 COMPLETE BLOOD COUNT 8746050 MCH 29.8 pg 11/25/2015 COMPLETE BLOOD COUNT 9157823 MCHC 32.9 g/dL 11/25/2015 COMPLETE BLOOD COUNT 8715566 PLATELET COUNT 197 10e9/L 11/25/2015 COMPLETE BLOOD COUNT 5117941 Mean Plt Volume 11.7 fL 11/25/2015 COMPLETE BLOOD COUNT 2486436 Neut Auto 41.3 % 11/25/2015 COMPLETE BLOOD COUNT 7474809 Lymph Auto 47.1 % 11/25/2015 COMPLETE BLOOD COUNT 2414842 Hardin Auto 7.8 % 11/25/2015 COMPLETE BLOOD COUNT 7537743 RDW 13.8 % 11/25/2015 COMPLETE BLOOD COUNT 6123402 Eos Auto 3.4 % 11/25/2015 COMPLETE BLOOD COUNT 8670310 Baso Auto 0.4 % 11/25/2015 COMPLETE BLOOD COUNT 3996216 Neutrophil Abs 2.81 10e9/L 11/25/2015 COMPLETE BLOOD COUNT 0471816 Lymphocyte Abs 3.20 10e9/L 11/25/2015 COMPLETE BLOOD COUNT 4833354 Monocyte Abs 0.53 10e9/L 11/25/2015 COMPLETE BLOOD COUNT 0113714 Eosinophil Abs 0.23 10e9/L 11/25/2015 COMPLETE BLOOD COUNT 0733182 RDW-SD 44.4 fL 11/25/2015 COMPLETE BLOOD COUNT 4464526 Basophil Abs 0.03 10e9/L 11/25/2015 MEAN GLUC 6889044 Calc M steven Gluc 111 mg/dL 11/25/2015 [place] [address] Glucose 89 MG/DL 02/19/2015 [place] [address] CREATININE 1.12 MG/DL 02/19/2015 [place] [address] BUN 20 MG/DL 02/19/2015 [place] [address] SODIUM 139 MMOL/L 02/19/2015 [place] [address] POTASSIUM 4.6 MMOL/L 02/19/2015 [place] [address] CHLORIDE 108 MMOL/L 02/19/2015 [place] [address] BICARB 26 MMOL/L 02/19/2015 [place] [address] ANION GAP 5 MEQ/L 02/19/2015 [place] [address] CALCIUM 10.0 MG/DL 02/19/2015 GFR CALC 2970025 GFR AA 57.0L ML/MIN 02/19/2015 GFR CALC 8455417 GFR NON -AA 47.0L ML/MIN 5 THYROID STIMULATING HORMONE 68624 TSH 2.378 uIU/ML 5 COMPLETE BLOOD COUNT 4815709 WBC 6.4 10e9/L 11/14/2014 COMPLETE BLOOD COUNT 9364430 RBC 3.99 10e12/L 5 COMPLETE BLOOD COUNT 4742729 HGB 11.9 g/dL 11/14/2014 COMPLETE BLOOD COUNT 4204572 HCT DET 36.9 % 11/14/2014 COMPLETE BLOOD COUNT 5759177 MCV 92.5 fL 11/14/2014 COMPLETE BLOOD COUNT 1298192 MCH 29.8 pg 11/14/2014 COMPLETE BLOOD COUNT 0919983 MCHC 32.2 g/dL 11/14/2014 COMPLETE BLOOD COUNT 2213394 PLT 172 10e9/L 11/14/2014 COMPLETE BLOOD COUNT 8753729 MPV 11.7 fL 11/14/2014 COMPLETE BLOOD COUNT 3124105 CINTHYA % 40.4 % 11/14/2014 COMPLETE BLOOD COUNT 3782816 LY % 48.0 % 11/14/2014 COMPLETE BLOOD COUNT 9350711 MON % 8.3 % 11/14/2014 COMPLETE BLOOD COUNT 8451405 EOS % 2.8 % 11/14/2014 COMPLETE BLOOD COUNT 9153942 BASO % 0.5 % 11/14/2014 COMPLETE BLOOD COUNT 5388666 RDW 13.6 % 11/14/2014 COMPLETE BLOOD COUNT 2175813 ABS CINTHYA 2.59 10e9/L 11/14/2014 COMPLETE BLOOD COUNT 8994033 ABS LYMPH 3.07 10e9/L 11/14/2014 COMPLETE BLOOD COUNT 4651821 ABS MONO 0.53 10e9/L 11/14/2014 COMPLETE BLOOD COUNT 9339134 ABS EOS 0.18 10e9/L 11/14/2014 COMPLETE BLOOD COUNT 9156014 ABS BASO 0.03 10e9/L 11/14/2014 COMPLETE BLOOD COUNT 2888030 RDW-SD 44.9 fL 11/14/2014 LIPID GROUP [address] 42 MG/DL 11/14/2014 LIPID GROUP 57561 TRIG 177 MG/DL 11/14/2014 LIPID GROUP 48593 TEST L DL 72 MG/DL 11/14/2014 LIPID GROUP 21394 CHOL 149 MG/DL 11/14/2014 LIPID GROUP 25783 RCHOL/ HDL 3.55 RATIO 11/14/2014 LIPID GROUP 60402 NON-HD L CH 107 MG/DL 11/14/2014 GLYCOSYLATED HEMOGLOBIN TEST 24659 A1C HPLC 43264-3 5.5 % 11/14/2014 FREE T4 09875 FREE T4 1.39 NG/DL 11/14/2014 GFR CALC 5138848 GFR AA 55.0L ML/MIN 11/14/2014 GFR CALC 8295717 GFR NON -AA 46.0L ML/MIN 5 COMPREHENSIVE METABOLIC 55503 AST 17 U/L 11/14/2014 COMPREHENSIVE METABOLIC 65268 ALT 10 IU/L 11/14/2014 COMPREHENSIVE METABOLIC 96595 BUN 20 MG/DL 11/14/2014 COMPREHENSIVE METABOLIC 34369 ALBUMIN 3.9 GM/DL 11/14/2014 COMPREHENSIVE METABOLIC 73532 CHLORIDE 111 MMOL/L 11/14/2014 COMPREHENSIVE METABOLIC 55254 BILI TOT 0.4 MG/DL 11/14/2014 COMPREHENSIVE METABOLIC 41292 ALK PHOS 70 U/L 11/14/2014 COMPREHENSIVE METABOLIC 79722 SODIUM 142 MMOL/L 11/14/2014 COMPREHENSIVE METABOLIC 50271 CREATININE 1.16 MG/DL 11/14/2014 COMPREHENSIVE METABOLIC 68751 CALCIUM 9.4 MG/DL 11/14/2014 COMPREHENSIVE METABOLIC 92429 POTASSIUM 4.6 MMOL/L 11/14/2014 COMPREHENSIVE METABOLIC 05359 PROT TOT 6.2 GM/DL 11/14/2014 COMPREHENSIVE METABOLIC 21567 Glucose 90 MG/DL 11/14/2014 COMPREHENSIVE METABOLIC 25018 BICARB 24 MMOL/L 11/14/2014 COMPREHENSIVE METABOLIC 09383 ANION GAP 7 MEQ/L 11/14/2014 THYROID STIMULATING HORMONE 47409 TSH 2.427 uIU/ML 5 LIPID GROUP [address] 47 MG/DL 05/10/2014 LIPID GROUP 51585 TRIG 145 MG/DL 05/10/2014 LIPID GROUP 28845 TEST L DL 73 MG/DL 05/10/2014 LIPID GROUP 11504 CHOL 149 MG/DL 05/10/2014 LIPID GROUP 29205 RCHOL/ HDL 3.17 RATIO 05/10/2014 LIPID GROUP 68869 NON-HD L CH 102 MG/DL 05/10/2014 COMPREHENSIVE METABOLIC 75681 AST 17 U/L 05/10/2014 COMPREHENSIVE METABOLIC 20322 ALT 9 IU/L 05/10/2014 COMPREHENSIVE METABOLIC 40243 BUN 19 MG/DL 05/10/2014 COMPREHENSIVE METABOLIC 71072 ALBUMIN 4.3 GM/DL 05/10/2014 COMPREHENSIVE METABOLIC 07743 CHLORIDE 108 MMOL/L 05/10/2014 COMPREHENSIVE METABOLIC 11032 BILI TOT 0.5 MG/DL 05/10/2014 COMPREHENSIVE METABOLIC 96223 ALK PHOS 68 U/L 05/10/2014 COMPREHENSIVE METABOLIC 28625 SODIUM 140 MMOL/L 05/10/2014 COMPREHENSIVE METABOLIC 32558 CREATININE 1.08 MG/DL 05/10/2014 COMPREHENSIVE METABOLIC 36060 CALCIUM 9.9 MG/DL 05/10/2014 COMPREHENSIVE METABOLIC 41999 POTASSIUM 4.3 MMOL/L 05/10/2014 COMPREHENSIVE METABOLIC 95944 PROT TOT 7.2 GM/DL 05/10/2014 COMPREHENSIVE METABOLIC 26305 Glucose 94 MG/DL 05/10/2014 COMPREHENSIVE METABOLIC 91481 BICARB 26 MMOL/L 05/10/2014 COMPREHENSIVE METABOLIC 82734 ANION GAP 6 MEQ/L 05/10/2014 GFR CALC 6499474 GFR AA 60.0L ML/MIN 05/10/2014 GFR CALC 7958451 GFR NON -AA 49.0L ML/MIN 5 GLYCOSYLATED HEMOGLOBIN TEST 95830 A1C HPLC 36419-3 5.6 % 05/10/2014 COMPLETE BLOOD COUNT 6040390 WBC 7.2 10e9/L 05/10/2014 COMPLETE BLOOD COUNT 6173534 RBC 4.28 10e12/L 5 COMPLETE BLOOD COUNT 5099496 HGB 12.8 g/dL 05/10/2014 COMPLETE BLOOD COUNT 1480338 HCT DET 39.3 % 05/10/2014 COMPLETE BLOOD COUNT 7150089 MCV 91.8 fL 05/10/2014 COMPLETE BLOOD COUNT 7453808 MCH 29.9 pg 05/10/2014 COMPLETE BLOOD COUNT 3580777 MCHC 32.6 g/dL 05/10/2014 COMPLETE BLOOD COUNT 6591416 PLT 189 10e9/L 05/10/2014 COMPLETE BLOOD COUNT 9387256 MPV 11.2 fL 05/10/2014 COMPLETE BLOOD COUNT 1636646 CINTHYA % 38.0 % 05/10/2014 COMPLETE BLOOD COUNT 3381228 LY % 51.0 % 05/10/2014 COMPLETE BLOOD COUNT 9187425 MON % 7.7 % 05/10/2014 COMPLETE BLOOD COUNT 4435633 EOS % 2.9 % 05/10/2014 COMPLETE BLOOD COUNT 6569045 BASO % 0.4 % 05/10/2014 COMPLETE BLOOD COUNT 5082948 RDW 14.0 % 05/10/2014 COMPLETE BLOOD COUNT 3126449 ABS CINTHYA 2.74 10e9/L 05/10/2014 COMPLETE BLOOD COUNT 6826495 ABS LYMPH 3.67 10e9/L 05/10/2014 COMPLETE BLOOD COUNT 1585948 ABS MONO 0.55 10e9/L 05/10/2014 COMPLETE BLOOD COUNT 9301578 ABS EOS 0.21 10e9/L 05/10/2014 COMPLETE BLOOD COUNT 1640779 ABS BASO 0.03 10e9/L 05/10/2014 COMPLETE BLOOD COUNT 6006476 RDW-SD 46.1 fL 05/10/2014 FREE T4 50944 FREE T4 1.14 NG/DL 05/10/2014 GLYCOSYLATED HEMOGLOBIN TEST 99203 A1C HPLC 60889-3 5.2 % 03/29/2013 FREE T4 22791 FREE T4 1.40 NG/DL 03/28/2013 GFR CALC 2017663 GFR AA >60 ML/MIN 03/28/2013 GFR CALC 7256585 GFR NON -AA 52.0L ML/MIN 4 COMPREHENSIVE METABOLIC 54610 AST 15 U/L 03/28/2013 COMPREHENSIVE METABOLIC 68898 ALT 9 IU/L 03/28/2013 COMPREHENSIVE METABOLIC 56390 BUN 17 MG/DL 03/28/2013 COMPREHENSIVE METABOLIC 61993 ALBUMIN 4.0 GM/DL 03/28/2013 COMPREHENSIVE METABOLIC 00063 CHLORIDE 112 MMOL/L 03/28/2013 COMPREHENSIVE METABOLIC 43245 BILI TOT 0.5 MG/DL 03/28/2013 COMPREHENSIVE METABOLIC 74350 ALK PHOS 66 U/L 03/28/2013 COMPREHENSIVE METABOLIC 25206 SODIUM 140 MMOL/L 03/28/2013 COMPREHENSIVE METABOLIC 72126 CREATININE 1.03 MG/DL 03/28/2013 COMPREHENSIVE METABOLIC 66816 CALCIUM 9.5 MG/DL 03/28/2013 COMPREHENSIVE METABOLIC 94591 POTASSIUM 4.1 MMOL/L 03/28/2013 COMPREHENSIVE METABOLIC 29754 PROT TOT 6.2 GM/DL 03/28/2013 COMPREHENSIVE METABOLIC 28831 Glucose 102 MG/DL 03/28/2013 COMPREHENSIVE METABOLIC 76401 BICARB 23 MMOL/L 03/28/2013 COMPREHENSIVE METABOLIC 34405 ANION GAP 5 MEQ/L 03/28/2013 THYROID STIMULATING HORMONE 88819 TSH 2.074 uIU/ML 4 VITAMIN B 12 FOLIC ACID 77350|74858 VIT B 12 423 PG/ML 03/28/2013 VITAMIN B 12 FOLIC ACID 22951|09597 FOLIC ACID 19.7 NG/ML 03/28/2013 LIPID GROUP [address] 40 MG/DL 03/28/2013 LIPID GROUP 54855 TRIG 145 MG/DL 03/28/2013 LIPID GROUP 66906 TEST L DL 81 MG/DL 03/28/2013 LIPID GROUP 45351 CHOL 150 MG/DL 03/28/2013 LIPID GROUP 72290 RCHOL/ HDL 3.75 RATIO 03/28/2013 COMPLETE BLOOD COUNT 7903047 WBC 6.0 10e9/L 03/28/2013 COMPLETE BLOOD COUNT 7069220 RBC 4.26 10e12/L 4 COMPLETE BLOOD COUNT 3169457 HGB 12.7 g/dL 03/28/2013 COMPLETE BLOOD COUNT 0059127 HCT DET 38.7 % 03/28/2013 COMPLETE BLOOD COUNT 5186419 MCV 90.8 fL 03/28/2013 COMPLETE BLOOD COUNT 2617884 MCH 29.8 pg 03/28/2013 COMPLETE BLOOD COUNT 0740028 MCHC 32.8 g/dL 03/28/2013 COMPLETE BLOOD COUNT 6478342 PLT 178 10e9/L 03/28/2013 COMPLETE BLOOD COUNT 1952141 MPV 11.7 fL 03/28/2013 COMPLETE BLOOD COUNT 9874539 CINTHYA % 30.5 % 03/28/2013 COMPLETE BLOOD COUNT 5200973 LY % 55.4 % 03/28/2013 COMPLETE BLOOD COUNT 5988247 MON % 9.0 % 03/28/2013 COMPLETE BLOOD COUNT 5083829 EOS % 4.4 % 03/28/2013 COMPLETE BLOOD COUNT 8976794 BASO % 0.7 % 03/28/2013 COMPLETE BLOOD COUNT 0010670 RDW 13.3 % 03/28/2013 COMPLETE BLOOD COUNT 0967793 ABS CINTHYA 1.83 10e9/L 03/28/2013 COMPLETE BLOOD COUNT 0717952 ABS LYMPH 3.32 10e9/L 03/28/2013 COMPLETE BLOOD COUNT 0286928 ABS MONO 0.54 10e9/L 03/28/2013 COMPLETE BLOOD COUNT 5422699 ABS EOS 0.26 10e9/L 03/28/2013 COMPLETE BLOOD COUNT 8864575 ABS BASO 0.04 10e9/L 03/28/2013 COMPLETE BLOOD COUNT 9689196 RDW-SD 43.2 fL 03/28/2013 HEMOGLOBIN A1C (GLYCOSYLATED) 1170377 A1C [facility] 64178-2 5.5 % 02/24/2012 COMPLETE BLOOD COUNT 5070115 WBC 6.0 10e9/L 02/23/2012 COMPLETE BLOOD COUNT 0852894 RBC 4.22 10e12/L 2 COMPLETE BLOOD COUNT 6423551 HGB 12.4 g/dL 02/23/2012 COMPLETE BLOOD COUNT 9594171 HCT DET 38.2 % 02/23/2012 COMPLETE BLOOD COUNT 6316611 MCV 90.5 fL 02/23/2012 COMPLETE BLOOD COUNT 5667021 MCH 29.4 pg 02/23/2012 COMPLETE BLOOD COUNT 5234397 MCHC 32.5 g/dL 02/23/2012 COMPLETE BLOOD COUNT 8111637 PLT 187 10e9/L 02/23/2012 COMPLETE BLOOD COUNT 9907546 MPV 11.5 fL 02/23/2012 COMPLETE BLOOD COUNT 4470653 CINTHYA % 36.4 % 02/23/2012 COMPLETE BLOOD COUNT 7553166 LY % 51.0 % 02/23/2012 COMPLETE BLOOD COUNT 8467220 MON % 8.7 % 02/23/2012 COMPLETE BLOOD COUNT 6406070 EOS % 3.2 % 02/23/2012 COMPLETE BLOOD COUNT 4964373 BASO % 0.7 % 02/23/2012 COMPLETE BLOOD COUNT 6818998 RDW 13.7 % 02/23/2012 COMPLETE BLOOD COUNT 8810256 ABS CINTHYA 2.18 10e9/L 02/23/2012 COMPLETE BLOOD COUNT 5351453 ABS LYMPH 3.06 10e9/L 02/23/2012 COMPLETE BLOOD COUNT 4926766 ABS MONO 0.52 10e9/L 02/23/2012 COMPLETE BLOOD COUNT 4343943 ABS EOS 0.19 10e9/L 02/23/2012 COMPLETE BLOOD COUNT 4693567 ABS BASO 0.04 10e9/L 02/23/2012 COMPLETE BLOOD COUNT 8991085 RDW-SD 44.3 fL 02/23/2012 LIPID GROUP [address] 42 MG/DL 02/23/2012 LIPID GROUP 26945 TRIG 156 MG/DL 02/23/2012 LIPID GROUP 10011 TEST L DL 80 MG/DL 02/23/2012 LIPID GROUP 30272 CHOL 153 MG/DL 02/23/2012 LIPID GROUP 40305 RCHOL/ HDL 3.64 RATIO 02/23/2012 FREE T4 13156 FREE T4 1.22 NG/DL 02/23/2012 COMPREHENSIVE METABOLIC 17371 AST 20 U/L 02/23/2012 COMPREHENSIVE METABOLIC 23942 ALT 11 IU/L 02/23/2012 COMPREHENSIVE METABOLIC 80467 BUN 19 MG/DL 02/23/2012 COMPREHENSIVE METABOLIC 60014 ALBUMIN 4.3 GM/DL 02/23/2012 COMPREHENSIVE METABOLIC 77327 CHLORIDE 109 MMOL/L 02/23/2012 COMPREHENSIVE METABOLIC 67025 BILI TOT 0.6 MG/DL 02/23/2012 COMPREHENSIVE METABOLIC 55845 ALK PHOS 84 U/L 02/23/2012 COMPREHENSIVE METABOLIC 18203 SODIUM 142 MMOL/L 02/23/2012 COMPREHENSIVE METABOLIC 16790 CREATININE 1.09 MG/DL 02/23/2012 COMPREHENSIVE METABOLIC 99705 CALCIUM 9.8 MG/DL 02/23/2012 COMPREHENSIVE METABOLIC 39355 POTASSIUM 4.2 MMOL/L 02/23/2012 COMPREHENSIVE METABOLIC 55352 PROT TOT 6.4 GM/DL 02/23/2012 COMPREHENSIVE METABOLIC 36128 Glucose 89 MG/DL 02/23/2012 COMPREHENSIVE METABOLIC 73446 BICARB 25 MMOL/L 02/23/2012 COMPREHENSIVE METABOLIC 45932 ANION GAP 8 MEQ/L 02/23/2012 GFR CALC 1907627 GFR AA 60.0L ML/MIN 02/23/2012 GFR CALC 7013788 GFR NON -AA 49.0L ML/MIN 2 THYROID STIMULATING HORMONE 45774 TSH 2.450 uIU/ML 2 COMPREHENSIVE METABOLIC 63531 AST 22 U/L 04/01/2011 COMPREHENSIVE METABOLIC 60943 ALT 14 IU/L 04/01/2011 COMPREHENSIVE METABOLIC 84372 BUN 21 MG/DL 04/01/2011 COMPREHENSIVE METABOLIC 30306 ALBUMIN 4.3 GM/DL 04/01/2011 COMPREHENSIVE METABOLIC 75990 CHLORIDE 106 MMOL/L 04/01/2011 COMPREHENSIVE METABOLIC 97094 BILI TOT 0.4 MG/DL 04/01/2011 COMPREHENSIVE METABOLIC 03283 ALK PHOS 80 U/L 04/01/2011 COMPREHENSIVE METABOLIC 47964 SODIUM 141 MMOL/L 04/01/2011 COMPREHENSIVE METABOLIC 89391 CREATININE 1.13 MG/DL 04/01/2011 COMPREHENSIVE METABOLIC 59208 CALCIUM 9.4 MG/DL 04/01/2011 COMPREHENSIVE METABOLIC 32847 POTASSIUM 4.3 MMOL/L 04/01/2011 COMPREHENSIVE METABOLIC 12312 PROT TOT 6.7 GM/DL 04/01/2011 COMPREHENSIVE METABOLIC 07573 Glucose 98 MG/DL 04/01/2011 COMPREHENSIVE METABOLIC 77940 BICARB 25 MMOL/L 04/01/2011 COMPREHENSIVE METABOLIC 35594 ANION GAP 10 MEQ/L 04/01/2011 LIPID GROUP [address] 44 MG/DL 04/01/2011 LIPID GROUP 08198 TRIG 164 MG/DL 04/01/2011 LIPID GROUP 68896 TEST L DL 98 MG/DL 04/01/2011 LIPID GROUP 41483 CHOL 175 MG/DL 04/01/2011 LIPID GROUP 09329 RCHOL/ HDL 3.98 RATIO 04/01/2011 COMPLETE BLOOD COUNT 31300 WBC 6.7 10e9/L 04/01/2011 COMPLETE BLOOD COUNT 69564 RBC 4.36 10e12/L 2 COMPLETE BLOOD COUNT 63777 HGB 12.9 g/dL 04/01/2011 COMPLETE BLOOD COUNT 70251 HCT DET 39.4 % 04/01/2011 COMPLETE BLOOD COUNT 84858 MCV 90.4 fL 04/01/2011 COMPLETE BLOOD COUNT 82694 MCH 29.6 pg 04/01/2011 COMPLETE BLOOD COUNT 59676 MCHC 32.7 g/dL 04/01/2011 COMPLETE BLOOD COUNT 59590 PLT 184 10e9/L 04/01/2011 COMPLETE BLOOD COUNT 64497 MPV 10.9 fL 04/01/2011 COMPLETE BLOOD COUNT 02930 CINTHYA % 41.5 % 04/01/2011 COMPLETE BLOOD COUNT 83321 LY % 45.7 % 04/01/2011 COMPLETE BLOOD COUNT 18310 MON % 9.4 % 04/01/2011 COMPLETE BLOOD COUNT 48266 EOS % 3.0 % 04/01/2011 COMPLETE BLOOD COUNT 86201 BASO % 0.4 % 04/01/2011 COMPLETE BLOOD COUNT 57536 RDW 13.2 % 04/01/2011 COMPLETE BLOOD COUNT 46357 ABS CINTHYA 2.78 10e9/L 04/01/2011 COMPLETE BLOOD COUNT 12455 ABS LYMPH 3.06 10e9/L 04/01/2011 COMPLETE BLOOD COUNT 41897 ABS MONO 0.63 10e9/L 04/01/2011 COMPLETE BLOOD COUNT 36931 ABS EOS 0.20 10e9/L 04/01/2011 COMPLETE BLOOD COUNT 43230 ABS BASO 0.03 10e9/L 04/01/2011 COMPLETE BLOOD COUNT 14309 RDW-SD 42.3 fL 04/01/2011 GFR CALC 1137028 GFR AA 57.0L ML/MIN 04/01/2011 GFR CALC 0793251 GFR NON -AA 47.0L ML/MIN 2 THYROID STIMULATING HORMONE 34736 TSH 2.663 uIU/ML 2 FREE T4 08898 FREE T4 1.15 NG/DL 04/01/2011 THYROID STIMULATING HORMONE 06317 TSH 1.908 uIU/ML 1 COMPLETE BLOOD COUNT 35434 WBC 6.4 10e9/L 07/06/2010 COMPLETE BLOOD COUNT 11759 RBC 3.92 10e12/L 1 COMPLETE BLOOD COUNT 18088 HGB 11.8 g/dL 07/06/2010 COMPLETE BLOOD COUNT 93709 HCT DET 36.0 % 07/06/2010 COMPLETE BLOOD COUNT 96258 MCV 91.8 fL 07/06/2010 COMPLETE BLOOD COUNT 89474 MCH 30.1 pg 07/06/2010 COMPLETE BLOOD COUNT 67450 MCHC 32.8 g/dL 07/06/2010 COMPLETE BLOOD COUNT 96135 PLT 176 10e9/L 07/06/2010 COMPLETE BLOOD COUNT 02667 MPV 11.4 fL 07/06/2010 COMPLETE BLOOD COUNT 65368 CINTHYA % 50.4 % 07/06/2010 COMPLETE BLOOD COUNT 68881 LY % 35.5 % 07/06/2010 COMPLETE BLOOD COUNT 55126 MON % 10.2 % 07/06/2010 COMPLETE BLOOD COUNT 19610 EOS % 3.3 % 07/06/2010 COMPLETE BLOOD COUNT 09121 BASO % 0.6 % 07/06/2010 COMPLETE BLOOD COUNT 75788 RDW 13.7 % 07/06/2010 COMPLETE BLOOD COUNT 62955 ABS CINTHYA 3.23 10e9/L 07/06/2010 COMPLETE BLOOD COUNT 80428 ABS LYMPH 2.27 10e9/L 07/06/2010 COMPLETE BLOOD COUNT 45706 ABS MONO 0.65 10e9/L 07/06/2010 COMPLETE BLOOD COUNT 69890 ABS EOS 0.21 10e9/L 07/06/2010 COMPLETE BLOOD COUNT 86436 ABS BASO 0.04 10e9/L 07/06/2010 COMPLETE BLOOD COUNT 56683 RDW-SD 45.3 fL 07/06/2010 GFR CALC 7523267 GFR AA >60 ML/MIN 07/06/2010 GFR CALC 9335916 GFR NON -AA 53.0L ML/MIN 1 FREE T4 84965 FREE T4 1.20 NG/DL 07/06/2010 COMPREHENSIVE METABOLIC 60129 AST 17 U/L 07/06/2010 COMPREHENSIVE METABOLIC 78280 ALT 9 IU/L 07/06/2010 COMPREHENSIVE METABOLIC 08167 BUN 16 MG/DL 07/06/2010 COMPREHENSIVE METABOLIC 46725 ALBUMIN 4.0 GM/DL 07/06/2010 COMPREHENSIVE METABOLIC 42965 CHLORIDE 108 MMOL/L 07/06/2010 COMPREHENSIVE METABOLIC 51887 BILI TOT 0.5 MG/DL 07/06/2010 COMPREHENSIVE METABOLIC 92607 ALK PHOS 76 U/L 07/06/2010 COMPREHENSIVE METABOLIC 52721 SODIUM 139 MMOL/L 07/06/2010 COMPREHENSIVE METABOLIC 22346 CREATININE 1.02 MG/DL 07/06/2010 COMPREHENSIVE METABOLIC 95589 CALCIUM 9.2 MG/DL 07/06/2010 COMPREHENSIVE METABOLIC 67997 POTASSIUM 4.5 MMOL/L 07/06/2010 COMPREHENSIVE METABOLIC 95949 PROT TOT 6.1 GM/DL 07/06/2010 COMPREHENSIVE METABOLIC 16370 Glucose 93 MG/DL 07/06/2010 COMPREHENSIVE METABOLIC 26748 BICARB 26 MMOL/L 07/06/2010 COMPREHENSIVE METABOLIC 68862 ANION GAP 5 MEQ/L 07/06/2010 LIPID GROUP [address] 46 MG/DL 07/06/2010 LIPID GROUP 16962 TRIG 102 MG/DL 07/06/2010 LIPID GROUP 72729 TEST L DL 88 MG/DL 07/06/2010 LIPID GROUP 64604 CHOL 154 MG/DL 07/06/2010 LIPID GROUP 77609 RCHOL/ HDL 3.35 RATIO 07/06/2010 Review of [...] Psychiatric No depression 05/21/2015 Endocrine No goiter 03/1 08/2015 Endocrine No hyperglycemia 05/21/2015 Endocrine No hypoglycemia [...] sinusitis 02/11/2011 Ears/Nose/Throat/Neck otalgia 02/11/2011 Neurologic headache 12/0 10/2010 Respiratory cough 2010 Musculoskeletal back pain [...] 08/11/2009 Constitutional fatigue 0 06/09/2009 Psychiatric anxiety 04/0 07/2009 Psychiatric depression 0 06/09/2009 Musculoskeletal muscle [...] - General Neurologic mental status Overall: alert 05/29/201 2 None Full Exam - General Psychiatric [...] Procedures Procedure Codes Date ROUTINE VENIPUNCTURE CPT-4: 94429 08/14/2018 ASSAY THYROID STIM H ORMONE CPT-4: 92296 08/14/2018 COMPREHEN METABOLIC PANEL CPT-4: 97135 08/14/2018 COMPLETE CBC W/AUTO DIFF WBC CPT-4: 19614 08/14/2018 URINALYSIS NONAUTO W /O SCOPE CPT-4: 50948 05/10/2018 URINE CULTURE/ COLON Y COUNT CPT-4: 26571 05/10/2018 URINE CULTURE/ COLON Y COUNT CPT-4: 04099 12/06/2017 ROUTINE VENIPUNCTURE CPT-4: 09790 11/30/2017 ASSAY OF FREE THYROXINE CPT-4: 97724 11/30/2017 ASSAY THYROID STIM H ORMONE CPT-4: 54711 11/30/2017 COMPLETE CBC W/AUTO DIFF WBC CPT-4: 76053 11/30/2017 METABOLIC PANEL TOTA L CA CPT-4: 51322 11/30/2017 FLU VACC PRSV FREE I NC ANTIG 65 AND OLDER CPT-4: 61205 11/22/2017 ASSAY, GLUCOSE, BLOO D QUANT CPT-4: 72704 11/22/2017 ADMIN INFLUENZA VIRU S VAC CPT-4: G0008 11/22/2017 ROUTINE VENIPUNCTURE CPT-4: 69345 09/27/2017 COMPREHEN METABOLIC PANEL CPT-4: 02195 09/27/2017 COMPLETE CBC W/AUTO DIFF WBC CPT-4: 54878 09/27/2017 A1C HPLC CPT-4: 20290 09/27/2017 ASSAY OF TROPONIN QUANT CPT-4: 40658 09/27/2017 LIPID PANEL CPT-4: 40803 09/27/2017 THER/PROPH/DIAG INJ SC/IM CPT-4: 37798 05/30/2017 TRIAMCINOLONE ACET I [place] NOS CPT-4: J3301 05/30/2017 URINALYSIS NONAUTO W /O SCOPE CPT-4: 89093 04/18/2017 URINE CULTURE/ COLON Y COUNT CPT-4: 34268 04/18/2017 FLU VACC PRSV FREE I NC ANTIG 65 AND OLDER CPT-4: 02412 12/10/2016 ADMIN INFLUENZA VIRU S VAC CPT-4: G0008 12/10/2016 ROUTINE VENIPUNCTURE CPT-4: 18210 11/01/2016 COMPREHEN METABOLIC PANEL CPT-4: 51477 11/01/2016 COMPLETE CBC W/AUTO DIFF WBC CPT-4: 27930 11/01/2016 LIPID PANEL CPT-4: 57015 11/01/2016 A1C HPLC CPT-4: 44138 11/01/2016 ASSAY THYROID STIM H ORMONE CPT-4: 36327 11/01/2016 ROUTINE VENIPUNCTURE CPT-4: 32419 05/13/2016 ASSAY THYROID STIM H ORMONE CPT-4: 30183 05/13/2016 COMPREHEN METABOLIC PANEL CPT-4: 00497 05/13/2016 COMPLETE CBC W/AUTO DIFF WBC CPT-4: 09925 05/13/2016 A1C HPLC CPT-4: 54978 05/13/2016 FLU VACC PRSV FREE I NC ANTIG 65 AND OLDER CPT-4: 15157 12/12/2015 ADMIN INFLUENZA VIRU S VAC CPT-4: G0008 12/12/2015 ROUTINE VENIPUNCTURE CPT-4: 73344 11/25/2015 ASSAY OF FREE THYROXINE CPT-4: 59808 11/25/2015 ASSAY THYROID STIM H ORMONE CPT-4: 80108 11/25/2015 COMPREHEN METABOLIC PANEL CPT-4: 81802 11/25/2015 COMPLETE CBC W/AUTO DIFF WBC CPT-4: 83883 11/25/2015 LIPID PANEL CPT-4: 76153 11/25/2015 A1C HPLC CPT-4: 35414 11/25/2015 URINALYSIS NONAUTO W /O SCOPE CPT-4: 22862 05/21/2015 ROUTINE VENIPUNCTURE CPT-4: 54807 02/19/2015 METABOLIC PANEL TOTA L CA CPT-4: 66059 02/19/2015 PRESCRIP TRANSMIT A ERX SY CPT-4: G8553 02/19/2015 FLU VACC PRSV FREE I NC ANTIG 65 AND OLDER CPT-4: 86190 12/20/2014 ADMIN INFLUENZA VIRU S VAC CPT-4: G0008 12/20/2014 URINALYSIS NONAUTO W /O SCOPE CPT-4: 80993 11/19/2014 URINE CULTURE/ COLON Y COUNT CPT-4: 62740 11/19/2014 ROUTINE VENIPUNCTURE CPT-4: 48148 11/14/2014 ASSAY OF FREE THYROXINE CPT-4: 75068 11/14/2014 ASSAY THYROID STIM H ORMONE CPT-4: 50941 11/14/2014 COMPREHEN METABOLIC PANEL CPT-4: 30753 11/14/2014 COMPLETE CBC W/AUTO DIFF WBC CPT-4: 69686 11/14/2014 LIPID PANEL CPT-4: 28486 11/14/2014 A1C HPLC CPT-4: 87721 11/14/2014 CERUM REMOVAL CPT-4: 43918 09/27/2014 PRESCRIP TRANSMIT A ERX SY CPT-4: G8553 07/11/2014 FLUZONE, 5ML (Medicare) CPT-4: Q2038 12/21/2013 ADMIN INFLUENZA VIRU S VAC CPT-4: G0008 12/21/2013 PRESCRIP TRANSMIT A ERX SY CPT-4: G8553 10/17/2013 PRESCRIP TRANSMIT A ERX SY CPT-4: G8553 09/24/2013 PRESCRIP TRANSMIT A ERX SY CPT-4: G8553 05/31/2013 ROUTINE VENIPUNCTURE CPT-4: 49509 03/28/2013 ASSAY OF FREE THYROXINE CPT-4: 00017 03/28/2013 ASSAY THYROID STIM H ORMONE CPT-4: 76272 03/28/2013 COMPREHEN METABOLIC PANEL CPT-4: 99731 03/28/2013 COMPLETE CBC W/AUTO DIFF WBC CPT-4: 24572 03/28/2013 LIPID PANEL CPT-4: 32640 03/28/2013 A1C HPLC CPT-4: 01989 03/28/2013 VITAMIN B 12 FOLIC ACID CPT-4: 74887|59266 03/28/2013 PRESCRIP TRANSMIT A ERX SY CPT-4: G8553 03/26/2013 PRESCRIP TRANSMIT A ERX SY CPT-4: G8553 12/19/2012 FLUZONE, 5ML (Medicare) CPT-4: Q2038 11/27/2012 ADMIN INFLUENZA VIRU S VAC CPT-4: G0008 11/27/2012 PRESCRIP TRANSMIT A ERX SY CPT-4: G8553 10/04/2012 PRESCRIP TRANSMIT A ERX SY CPT-4: G8553 07/14/2012 ROUTINE VENIPUNCTURE CPT-4: 22975 02/23/2012 ASSAY OF FREE THYROXINE CPT-4: 18461 02/23/2012 ASSAY THYROID STIM H ORMONE CPT-4: 32713 02/23/2012 COMPREHEN METABOLIC PANEL CPT-4: 12024 02/23/2012 COMPLETE CBC W/AUTO DIFF WBC CPT-4: 04718 02/23/2012 LIPID PANEL CPT-4: 45608 02/23/2012 A1C GLYCOSYLATED HEM OGLOBIN TEST CPT-4: 84301 02/23/2012 CERUM REMOVAL CPT-4: 14236 02/22/2012 PRESCRIP TRANSMIT A ERX SY CPT-4: G8553 02/22/2012 PRESCRIP TRANSMIT A ERX SY CPT-4: G8553 12/15/2011 FLUZONE, 5ML (Medicare) CPT-4: Q2038 12/02/2011 ADMIN INFLUENZA VIRU S VAC CPT-4: G0008 12/02/2011 ASSAY, GLUCOSE, BLOO D QUANT CPT-4: 57492 09/21/2011 URINALYSIS NONAUTO W /O SCOPE CPT-4: 04908 09/16/2011 URINE CULTURE/ COLON Y COUNT CPT-4: 15883 09/16/2011 ROUTINE VENIPUNCTURE CPT-4: 64189 09/15/2011 ASSAY OF FREE THYROXINE CPT-4: 13057 09/15/2011 ASSAY THYROID STIM H ORMONE CPT-4: 26298 09/15/2011 COMPREHEN METABOLIC PANEL CPT-4: 78127 09/15/2011 COMPLETE CBC W/AUTO DIFF WBC CPT-4: 19850 09/15/2011 LIPID PANEL CPT-4: 48387 09/15/2011 ASSAY OF INSULIN CPT-4: 87186 09/15/2011 A1C GLYCOSYLATED HEM OGLOBIN TEST CPT-4: 37988 09/15/2011 DRAIN/INJECT JOINT/B URSA CPT-4: 42752 08/16/2011 METHYLPREDNISOLONE 4 0 MG INJ CPT-4: J1030 08/16/2011 TRIAMCINOLONE ACET I [place] NOS CPT-4: J3301 08/16/2011 PRESCRIP TRANSMIT A ERX SY CPT-4: G8553 08/03/2011 PRESCRIP TRANSMIT A ERX SY CPT-4: G8553 07/26/2011 METHYLPREDNISOLONE 4 0 MG INJ CPT-4: J1030 06/28/2011 DRAIN/INJECT JOINT/B URSA CPT-4: 14090 06/28/2011 TRIAMCINOLONE ACET I [place] NOS CPT-4: J3301 06/28/2011 PRESCRIP TRANSMIT A ERX SY CPT-4: G8553 06/28/2011 ROUTINE VENIPUNCTURE CPT-4: 47689 04/01/2011 ASSAY OF FREE THYROXINE CPT-4: 75099 04/01/2011 ASSAY THYROID STIM H ORMONE CPT-4: 98067 04/01/2011 COMPREHEN METABOLIC PANEL CPT-4: 53787 04/01/2011 COMPLETE CBC W/AUTO DIFF WBC CPT-4: 81072 04/01/2011 LIPID PANEL CPT-4: 79293 04/01/2011 PRESCRIP TRANSMIT A ERX SY CPT-4: G8553 03/31/2011 CERUM REMOVAL CPT-4: 61093 02/11/2011 PRESCRIP TRANSMIT A ERX SY CPT-4: G8553 02/11/2011 FLUZONE, 5ML (Medicare) CPT-4: Q2038 12/09/2010 ADMIN INFLUENZA VIRU S VAC CPT-4: G0008 12/09/2010 PRESCRIP TRANSMIT A ERX SY CPT-4: G8553 10/15/2010 URINALYSIS NONAUTO W /O SCOPE CPT-4: 80401 09/29/2010 URINE CULTURE/ COLON Y COUNT CPT-4: 05262 09/29/2010 CUR TOBACCO NON-USER CPT-4: G8457 09/29/2010 ROUTINE VENIPUNCTURE CPT-4: 39220 07/06/2010 COMPLETE CBC W/AUTO DIFF WBC CPT-4: 69090 07/06/2010 COMPREHEN METABOLIC PANEL CPT-4: 87676 07/06/2010 LIPID PANEL CPT-4: 08649 07/06/2010 ASSAY THYROID STIM H ORMONE CPT-4: 12465 07/06/2010 ASSAY OF FREE THYROXINE CPT-4: 75400 07/06/2010 PRESCRIP TRANSMIT A ERX SY CPT-4: G8553 07/02/2010 INJ TRIGGER POINT 1/ 2 MUSCL CPT-4: 62596 04/06/2010 TRIAMCINOLONE ACET I [place] NOS CPT-4: J3301 04/06/2010 METHYLPREDNISOLONE 4 0 MG INJ CPT-4: J1030 04/06/2010 THER/PROPH/DIAG INJ SC/IM CPT-4: 17273 04/01/2010 KETOROLAC TROMETHAMI NE INJ CPT-4: J1885 04/01/2010 PRESCRIP TRANSMIT A ERX SY CPT-4: G8553 01/22/2010 FLU VACCINE 3 YRS & > IM UP 64 CPT-4: 94097 12/10/2009 ADMIN INFLUENZA VIRU S VAC CPT-4: G0008 12/10/2009 URINALYSIS NONAUTO W /O SCOPE CPT-4: 00056 12/02/2009 URINE CULTURE/ COLON Y COUNT CPT-4: 13595 12/02/2009 PRESCRIP TRANSMIT A ERX SY CPT-4: G8553 12/02/2009 THER/PROPH/DIAG INJ SC/IM CPT-4: 27161 09/10/2009 VITAMIN B12 INJECTION CPT-4: J3420 09/10/2009 THER/PROPH/DIAG INJ SC/IM CPT-4: 94694 08/11/2009 VITAMIN B12 INJECTION CPT-4: J3420 08/11/2009 ROUTINE VENIPUNCTURE CPT-4: 12281 06/10/2009 Vital Signs Date Vital 11/07/2018 Blood [...] 1: 142/60 Code: 8480-6 BMI: 38.2 Code: 45948-6 Heart Rate 1: 48 bpm Height: 5'2" Respiratory Rate: 20 bpm SpO2: 98% Temperature: 36.7 (C ) / 98.1 (F) Weight: 212 lbs 01/10/2018 Blood Pressure 1: 142/64 Code: 8480-6 BMI: 38.5 Code: 45519-8 Heart Rate 1: 52 bpm Height: 5'2" Respiratory Rate: 22 bpm SpO2: 96% Temperature: 36.1 (C ) / 96.9 (F) Weight: 214 lbs 12/06/2017 Blood Pressure 1: 124/80 Code: 8480-6 BMI: 38.3 Code: 36143-7 Heart Rate 1: 68 bpm Height: 5'2" Respiratory Rate: 20 bpm Temperature: 36.3 (C ) / 97.4 (F) Weight: 213 lbs 11/22/2017 Blood Pressure 1: 132/78 Code: 8480-6 BMI: 37.6 Code: 49704-2 Heart Rate 1: 68 bpm Height: 5'2" Respiratory Rate: 20 bpm SpO2: 97% Temperature: 36.8 (C ) / 98.2 (F) Weight: 209 lbs 10/20/2017 Blood Pressure 1: 150/76 Code: 8480-6 BMI: 38.5 Code: 97022-4 Heart Rate 1: 64 bpm Height: 5'2" Respiratory Rate: 20 bpm SpO2: 97% Temperature: 36.2 (C ) / 97.2 (F) Weight: 214 lbs 09/27/2017 Blood Pressure 1: 122/74 Code: 8480-6 BMI: 38.2 Code: 89032-9 Heart Rate 1: 64 bpm Height: 5'2" Respiratory Rate: 18 bpm SpO2: 96% Temperature: 35.8 (C ) / 96.4 (F) Weight: 212 lbs 08/16/2017 Blood Pressure 1: 124/78 Code: 8480-6 BMI: 37.8 Code: 28732-9 Heart Rate 1: 76 bpm Height: 5'2" Respiratory Rate: 20 bpm Temperature: 36.8 (C ) / 98.3 (F) Weight: 210 lbs 07/07/2017 Blood Pressure 1: 136/70 Code: 8480-6 BMI: 38.0 Code: 55082-7 Heart Rate 1: 68 bpm Height: 5'2" Respiratory Rate: 20 bpm SpO2: 97% Temperature: 36.8 (C ) / 98.2 (F) Weight: 211 lbs 05/30/2017 Blood Pressure 1: 140/65 Code: 8480-6 Heart Rate 1: 75 bpm Respiratory Rate: 24 bpm SpO2: 95% Temperature: 37.0 (C ) / 98.6 (F) Weight: 211 lbs 04/18/2017 Blood Pressure 1: 154/70 Code: 8480-6 BMI: 37.6 Code: 98475-1 Heart Rate 1: 76 bpm Height: 5'2" Respiratory Rate: 20 bpm SpO2: 98% Temperature: 36.9 (C ) / 98.5 (F) Weight: 209 lbs 10/25/2016 Blood Pressure 1: 156/70 Code: 8480-6 BMI: 37.1 Code: 52491-5 Heart Rate 1: 72 bpm Height: 5'2" Respiratory Rate: 20 bpm SpO2: 97% Temperature: 37.0 (C ) / 98.6 (F) Weight: 206 lbs 09/20/2016 Blood Pressure 1: 152/78 Code: 8480-6 BMI: 36.8 Code: 55981-9 Heart Rate 1: 78 bpm Height: 5'2" Respiratory Rate: 20 bpm SpO2: 98% Temperature: 36.1 (C ) / 97.0 (F) Weight: 204 lbs 05/12/2016 Blood Pressure 1: 142/70 Code: 8480-6 BMI: 36.9 Code: 47768-5 Heart Rate 1: 64 bpm Height: 5'2" [...] 1: 122/64 Code: 8480-6 BMI: 39.1 Code: 76012-5 Heart Rate 1: 76 bpm Height: 5'2" Respiratory Rate: 20 bpm Temperature: 36.8 (C ) / 98.2 (F) Weight: 217 lbs 05/21/2015 Blood Pressure 1: 144/70 Code: 8480-6 BMI: 39.4 Code: 65310-1 Heart Rate 1: 76 bpm Height: 5'2" Respiratory Rate: 20 bpm Temperature: 36.6 (C ) / 97.9 (F) Weight: 219 lbs 02/19/2015 Blood Pressure 1: 152/60 Code: 8480-6 BMI: 39.6 Code: 72356-2 Heart Rate 1: 84 bpm Height: 5'2" Respiratory Rate: 20 bpm Temperature: 37.0 (C ) / 98.6 (F) Weight: 220 lbs 11/13/2014 Blood Pressure 1: 146/76 Code: 8480-6 BMI: 39.8 Code: 40434-3 Heart Rate 1: 88 bpm Height: 5'2" Respiratory Rate: 20 bpm Temperature: 37.0 (C ) / 98.6 (F) Weight: 221 lbs 09/27/2014 Blood Pressure 1: 132/70 Code: 8480-6 BMI: 39.1 Code: 56162-5 Heart Rate 1: 88 bpm Height: 5'2" Respiratory Rate: 20 bpm Temperature: 36.4 (C ) / 97.6 (F) Weight: 217 lbs 07/11/2014 Blood Pressure 1: 132/66 Code: 8480-6 BMI: 39.9 Code: 51381-7 Heart Rate 1: 72 bpm Height: 5'2" Respiratory Rate: 20 bpm Temperature: 36.9 (C ) / 98.4 (F) Weight: 218 lbs 05/23/2014 Blood Pressure 1: 136/80 Code: 8480-6 Heart Rate 1: 76 bpm Respiratory Rate: 20 bpm Temperature: 36.7 (C) / 98.0 (F) Weight: 224 lbs 03/20/2014 Blood Pressure 1: 134/78 Code: 8480-6 BMI: 39.7 Code: 54295-7 Heart Rate 1: 84 bpm Height: 5'2" Respiratory Rate: 20 bpm Temperature: 36.7 (C ) / 98.0 (F) Weight: 217 lbs 10/17/2013 Blood Pressure 1: 146/78 Code: 8480-6 BMI: 39.5 Code: 40336-5 Heart Rate 1: 82 bpm Height: 5'2" Respiratory Rate: 18 bpm Temperature: 35.6 (C ) / 96.1 (F) Weight: 216 lbs 09/24/2013 Blood Pressure 1: 134/70 Code: 8480-6 BMI: 37.9 Code: 95441-6 Heart Rate 1: 80 bpm Height: 5'3" Respiratory Rate: 20 bpm Temperature: 36.8 (C ) / 98.2 (F) Weight: 214 lbs 05/31/2013 Blood Pressure 1: 132/70 Code: 8480-6 BMI: 37.6 Code: 10729-8 Heart Rate 1: 80 bpm Height: 5'3" Respiratory Rate: 20 bpm Temperature: 36.8 (C ) / 98.3 (F) Weight: 212 lbs 03/26/2013 Blood Pressure 1: 116/74 Code: 8480-6 Heart Rate 1: 68 bpm Respiratory Rate: 20 bpm Temperature: 36.2 (C) / 97.1 (F) Weight: 212 lbs 12/19/2012 Blood Pressure 1: 132/82 Code: 8480-6 BMI: 37.4 Code: 48393-8 Heart Rate 1: 76 bpm Height: 5'3" Respiratory Rate: 20 bpm Temperature: 36.7 (C ) / 98.0 (F) Weight: 211 lbs 12/04/2012 Blood Pressure 1: 130/76 Code: 8480-6 Heart Rate 1: 78 bpm 11/27/2012 Blood Pressure 1: 140/82 Code: 8480-6 BMI: 36.8 Code: 80044-0 Heart Rate 1: 66 bpm Height: 5'3" Respiratory Rate: 20 bpm Temperature: 36.1 (C ) / 96.9 (F) Weight: 208 lbs 10/04/2012 Blood Pressure 1: 138/80 Code: 8480-6 BMI: 36.4 Code: 12004-9 Heart Rate 1: 72 bpm Height: 5'4" Respiratory Rate: 20 bpm Temperature: 36.7 (C ) / 98.0 (F) Weight: 212 lbs 07/27/2012 Blood Pressure 1: 124/70 Code: 8480-6 BMI: 36.9 Code: 24295-7 Heart Rate 1: 60 bpm Height: 5'4" Temperature: 36.1 (C ) / 97.0 (F) Weight: 215 lbs 07/14/2012 Blood Pressure 1: 132/86 Code: 8480-6 BMI: 36.9 Code: 28352-2 Heart Rate 1: 76 bpm Height: 5'4" Respiratory Rate: 20 bpm Temperature: 36.8 (C ) / 98.2 (F) Weight: 215 lbs 06/08/2012 Blood Pressure 1: 134/82 Code: 8480-6 BMI: 36.6 Code: 79536-8 Heart Rate 1: 72 bpm Height: 5'4" Respiratory Rate: 20 bpm Temperature: 36.3 (C ) / 97.4 (F) Weight: 213 lbs 02/22/2012 Blood Pressure 1: 142/80 Code: 8480-6 BMI: 37.1 Code: 54674-4 Heart Rate 1: 76 bpm Height: 5'4" Respiratory Rate: 20 bpm Temperature: 36.8 (C ) / 98.3 (F) Weight: 216 lbs 12/28/2011 Blood Pressure 1: 128/68 Code: 8480-6 BMI: 37.6 Code: 98623-7 Heart Rate 1: 72 bpm Height: 5'4" [...] 1: 128/78 Code: 8480-6 BMI: 38.1 Code: 15715-8 Heart Rate 1: 84 bpm Height: 5'4" Respiratory Rate: 20 bpm Temperature: 36.9 (C ) / 98.4 (F) Weight: 222 lbs 08/16/2011 Blood Pressure 1: 138/80 Code: 8480-6 BMI: 37.9 Code: 95931-1 Heart Rate 1: 74 bpm Height: 5'4" Temperature: 36.1 (C ) / 97.0 (F) Weight: 221 lbs 08/03/2011 Blood Pressure 1: 126/78 Code: 8480-6 BMI: 38.4 Code: 91147-3 Heart Rate 1: 72 bpm Height: 5'4" Respiratory Rate: 20 bpm Temperature: 36.7 (C ) / 98.0 (F) Weight: 224 lbs 07/26/2011 Blood Pressure 1: 138/72 Code: 8480-6 BMI: 38.4 Code: 97789-4 Heart Rate 1: 72 bpm Height: 5'4" Respiratory Rate: 20 bpm Temperature: 36.6 (C ) / 97.9 (F) Weight: 224 lbs 06/28/2011 Blood Pressure 1: 122/78 Code: 8480-6 BMI: 38.8 Code: 25053-4 Heart Rate 1: 88 bpm Height: 5'4" Respiratory Rate: 20 bpm Temperature: 36.6 (C ) / 97.8 (F) Weight: 226 lbs 03/31/2011 Blood Pressure 1: 116/60 Code: 8480-6 BMI: 38.1 Code: 37568-0 Heart Rate 1: 92 bpm Height: 5'4" Respiratory Rate: 20 bpm Temperature: 36.8 (C ) / 98.2 (F) Weight: 222 lbs 02/11/2011 Blood Pressure 1: 118/62 Code: 8480-6 BMI: 37.9 Code: 11942-9 Heart Rate 1: 80 bpm Height: 5'4" Temperature: 36.5 (C ) / 97.7 (F) Weight: 221 lbs 10/15/2010 Blood Pressure 1: 132/70 Code: 8480-6 Heart Rate 1: 84 bpm Respiratory Rate: 20 bpm Temperature: 36.7 (C) / 98.0 (F) Weight: 221 lbs 09/29/2010 Blood Pressure 1: 114/72 Code: 8480-6 BMI: 37.6 Code: 77035-4 Heart Rate 1: 76 bpm Height: 5'4" [...] 1: 120/70 Code: 8480-6 BMI: 38.3 Code: 25341-8 Heart Rate 1: 88 bpm Height: 5'5" [...] Encounters Encounter Performer Loca tion Codes Date ([id number]) OFFICE/OUTPA TIENT VISIT EST Diagnosis: Acute serous otitis media, left ear[ICD10: H65.02] Jennifer Rosario [facility] [employer] CPT-4: 83113 11/07/2018 ([id number]) OFFICE/OUTPA TIENT VISIT EST Diagnosis: Essential (primary) hypertension[ICD10: I10] Diagnosis: 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] Diagnosis: Hypoglycemia, unspecified[ICD10: E16.2] Diagnosis: Other fatigue[ICD10: R53.83] Diagnosis: Urinary tract infection, site not specified[ICD10: N39.0] Vikki [facility]KE [employer] CPT-4: 17261 08/14/2018 ([id number]) OFFICE/OUTPA TIENT VISIT EST Diagnosis: Essential (primary) hypertension[ICD10: I10] Diagnosis: Gastro-esophageal reflux disease without esophagitis[ICD10: K21.9] Diagnosis: Urinary tract infection, site not specified[ICD10: N39.0] Vikki [employer] [employer] CPT-4: 69249 05/10/2018 ([id number]) OFFICE/OUTPA TIENT VISIT EST Diagnosis: Gastro-esophageal reflux disease without esophagitis[ICD10: K21.9] Diagnosis: Epigastric pain[ICD10: R10.13] Vikki GUAMAN [facility] CPT-4: 62929 02/14/2018 ([id number]) OFFICE/OUTPA TIENT VISIT EST Diagnosis: 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] Diagnosis: Essential (primary) hypertension[ICD10: I10] Diagnosis: Generalized anxiety disorder[ICD10: F41.1] Diagnosis: Gastro-esophageal reflux disease without esophagitis[ICD10: K21.9] Vikki GUAMAN [facility] CPT-4: 16078 01/10/2018 OFFICE/OUTPATIENT SIT EST Diagnosis: Gastro-esophageal reflux disease without esophagitis[ICD10: K21.9] Diagnosis: Palpitations[ICD10: R00.2] Diagnosis: Urinary tract infection, site not specified[ICD10: N39.0] Diagnosis: Generalized anxiety disorder[ICD10: F41.1] Vikki MARTINEZ [facility] CPT-4: 88927 12/06/2017 ([id number]) NURSE/OUTPAT IENT VISIT EST Diagnosis: 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] Diagnosis: Hypoglycemia, unspecified[ICD10: E16.2] Diagnosis: Dizziness and giddiness[ICD10: R42] Diagnosis: Occlusion and stenosis of bilateral carotid arteries[ICD10: I65.23] Vikki GUAMAN [employer] [facility] CPT-4: 36881 11/30/2017 OFFICE/OUTPATIENT SIT EST Diagnosis: Epigastric pain[ICD10: R10.13] Diagnosis: Generalized anxiety disorder[ICD10: F41.1] Diagnosis: FLU VACCINE[ICD10: Z23] Vikki GUAMAN [employer] [facility] CPT-4: 55361 11/22/2017 ([id number]) OFFICE/OUTPA TIENT VISIT EST Diagnosis: Essential (primary) hypertension[ICD10: I10] Diagnosis: Hypoglycemia, unspecified[ICD10: E16.2] Diagnosis: Gastro-esophageal reflux disease without esophagitis[ICD10: K21.9] Vikki GUAMAN [facility] CPT-4: 98914 10/20/2017 ([id number]) OFFICE/OUTPA TIENT VISIT EST Diagnosis: Dizziness and giddiness[ICD10: R42] Jennifer BALL [facility] CPT-4: 13907 09/27/2017 ([id number]) OFFICE/OUTPA TIENT VISIT EST Diagnosis: Cervicalgia[ICD10: M54.2] Diagnosis: Other spondylosis with radiculopathy, cervical region[ICD10: M47.22] Vikki GUAMAN [facility] CPT-4: 04277 08/16/2017 ([id number]) OFFICE/OUTPA TIENT VISIT EST Diagnosis: Hypoglycemia, unspecified[ICD10: E16.2] Diagnosis: Other spondylosis with radiculopathy, cervical region[ICD10: M47.22] Diagnosis: Vertigo of central origin, 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] Diagnosis: 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] Vikki MARTINEZ [facility] CPT-4: 04951 07/07/2017 ([id number]) OFFICE/OUTPA TIENT VISIT EST Diagnosis: Benign paroxysmal vertigo, bilateral[ICD10: H81.13] Diagnosis: Otalgia, bilateral[ICD10: H92.03] Jennifer 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] Diagnosis: Impaired fasting glucose[ICD10: R73.01] Diagnosis: Other fatigue[ICD10: R53.83] Vikki GUAMAN [employer] CPT-4: 10892 11/01/2016 ([id number]) OFFICE/OUTPA TIENT VISIT EST Diagnosis: Pain in thoracic spine[ICD10: M54.6] Diagnosis: Other intervertebral disc degeneration, 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] Vikki GUAMAN [employer] [facility] CPT-4: 93805 10/25/2016 ([id number]) OFFICE/OUTPA TIENT VISIT EST Diagnosis: Left lower quadrant pain[ICD10: R10.32] Diagnosis: Low back pain[ICD10: M54.5] Vikki GUAMAN [employer] [facility] CPT-4: 07545 09/20/2016 ([id number]) OFFICE/OUTPA TIENT VISIT EST Diagnosis: Mixed hyperlipidemia[ICD10: E78.2] Diagnosis: Essential (primary) hypertension[ICD10: I10] Diagnosis: Hypoglycemia, unspecified[ICD10: E16.2] Vikki MARTINEZ [employer] [facility] CPT-4: 57891 05/13/2016 ([id number]) OFFICE/OUTPA TIENT VISIT EST Diagnosis: Impaired fasting glucose[ICD10: R73.01] Diagnosis: Mastodynia[ICD10: N64.4] Diagnosis: Mixed hyperlipidemia[ICD10: E78.2] Diagnosis: Essential (primary) hypertension[ICD10: I10] Diagnosis: Other fatigue[ICD10: R53.83] Vikki GUAMAN [employer] [facility] CPT-4: 85867 05/12/2016 ([id number]) OFFICE/OUTPA TIENT VISIT EST Diagnosis: Acute upper respiratory infection, unspecified[ICD10: J06.9] Yue Moya VIKKI GUAMAN [employer] [facility] CPT-4: 20116 03/18/2016 ([id number]) OFFICE/OUTPA TIENT VISIT EST Diagnosis: Acute mastoiditis without complications, right ear[ICD10: H70.001] Vikki GUAMAN [facility] CPT-4: 18196 02/06/2016 ([id number]) OFFICE/OUTPA TIENT VISIT EST Diagnosis: FLU VACCINE[ICD10: Z23] Vikki GUAMAN DO [facility] CPT-4: 11994 12/12/2015 ([id number]) OFFICE/OUTPA TIENT VISIT EST Diagnosis: Mixed hyperlipidemia[ICD10: E78.2] Diagnosis: Essential (primary) hypertension[ICD10: I10] Diagnosis: 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] Diagnosis: Impaired fasting glucose[ICD10: R73.01] Vikki MARTINEZ [facility] CPT-4: 40422 11/25/2015 ([id number]) OFFICE/OUTPA TIENT VISIT EST Diagnosis: Constipation, unspecified[ICD10: K59.00] Vikki MARTINEZ [facility] CPT-4: 66163 08/26/2015 ([id number]) OFFICE/OUTPA TIENT VISIT EST Diagnosis: Essential (primary) hypertension[ICD10: I10] Diagnosis: Mixed hyperlipidemia[ICD10: E78.2] Diagnosis: Chronic kidney disease, stage 1[ICD10: N18.1] Vikki MARTINEZ [facility] CPT-4: 35532 05/21/2015 ([id number]) OFFICE/OUTPA TIENT VISIT EST Diagnosis: Muscle weakness (generalized)[ICD10: M62.81] Diagnosis: Dizziness and giddiness[ICD10: R42] Diagnosis: Essential (primary) hypertension[ICD10: I10] Diagnosis: History of falling[ICD10: Z91.81] Vikki MARTINEZ [facility] CPT-4: 45118 02/19/2015 ([id number]) OFFICE/OUTPA TIENT VISIT EST Diagnosis: FLU VACCINE[ICD10: Z23] Vikki GUAMAN [facility] CPT-4: 61462 12/20/2014 ([id number]) OFFICE/OUTPA TIENT VISIT EST Diagnosis: Acute renal failure[ICD9: 584.9] Diagnosis: POLYURIA[ICD9: 788.42] Vikki GUAMAN [facility] CPT-4: 32131 11/19/2014 ([id number]) OFFICE/OUTPA TIENT VISIT EST Diagnosis: HYPERLIPIDEMIA NEC/NOS[ICD9: 272.4] Diagnosis: HYPERTENSION[ICD9: 401.9] Diagnosis: CAD[ICD9: 414.00] Diagnosis: Hyperglycemia[ICD9: 790.29] Diagnosis: MALAISE AND FATIGUE[ICD9: 780.79] Vikki MARTINEZ [facility] CPT-4: 55959 11/14/2014 ([id number]) OFFICE/OUTPA TIENT VISIT EST Diagnosis: MALAISE AND FATIGUE[ICD9: 780.79] Diagnosis: HYPOGLYCEMIA[ICD9: 251.2] Diagnosis: Grieving[ICD9: 309.0] Diagnosis: ABDOMINAL PAIN[ICD9: 789.00] Vikki GUAMAN [facility] CPT-4: 46279 11/13/2014 OFFICE/OUTPATIENT SIT EST Diagnosis: CERUMEN IMPACTION[ICD9: 380.4] Diagnosis: EUSTACHIAN TUBE DYSFUNCTION[ICD9: 381.81] Jessenia Portillovickiemir VIKKI SSujata Santana [facility] CPT-4: 76417 09/27/2014 ([id number]) OFFICE/OUTPA TIENT VISIT EST Diagnosis: Leg pain[ICD9: 729.5] Diagnosis: SUPERFIC PHLEBITIS-LEG[ICD9: 451.0] Vikki MARTINEZ [facility] CPT-4: 58323 07/11/2014 ([id number]) OFFICE/OUTPA TIENT VISIT EST Diagnosis: Thoracic back pain[ICD9: 724.1] Diagnosis: SPASM OF MUSCLE[ICD9: 728.85] Vikki GUAMAN [facility] CPT-4: 42785 05/23/2014 ([id number]) OFFICE/OUTPA TIENT VISIT EST Diagnosis: DIZZINESS/VERTIGO[ICD9: 780.4] Diagnosis: Benign positional vertigo[ICD9: 386.11] Diagnosis: HYPERTENSION[ICD9: 401.9] Diagnosis: Suspicious nevus[ICD9: 238.2] Vikki GUAMAN [facility] CPT-4: 03112 03/20/2014 ([id number]) OFFICE/OUTPA TIENT VISIT EST Diagnosis: FLU VACCINE[ICD10: Z23] Vikki GUAMAN DO [facility] CPT-4: 37829 12/21/2013 OFFICE/OUTPATIENT SIT EST Diagnosis: SINUSITIS, ACUTE[ICD9: 461.9] Diagnosis: EUSTACHIAN TUBE DYSFUNCTION[ICD9: 381.81] Jessenia RUBI [facility] CPT-4: 62349 10/17/2013 ([id number]) OFFICE/OUTPA TIENT VISIT EST Diagnosis: DIZZINESS/VERTIGO[ICD9: 780.4] Diagnosis: HYPERTENSION[ICD9: 401.9] Vikki GUAMAN [facility] CPT-4: 10938 09/24/2013 ([id number]) OFFICE/OUTPA TIENT VISIT EST Diagnosis: HYPERTENSION[ICD9: 401.9] Diagnosis: MALAISE AND FATIGUE[ICD9: 780.79] Diagnosis: SINUSITIS, ACUTE[ICD9: 461.9] Vikki GUAMAN [facility] CPT-4: 29396 05/31/2013 ([id number]) OFFICE/OUTPA TIENT VISIT EST Diagnosis: HYPERLIPIDEMIA NEC/NOS[ICD9: 272.4] Diagnosis: HYPERTENSION[ICD9: 401.9] Diagnosis: B12 DEFIC ANEMIA NEC[ICD9: 281.1] Diagnosis: HYPOGLYCEMIA[ICD9: 251.2] Vikki GUAMAN DO [facility] CPT-4: 44927 03/28/2013 OFFICE/OUTPATIENT SIT EST Diagnosis: COUGH[ICD9: 786.2] Jessenia GUAMAN [facility] CPT-4: 42121 03/26/2013 OFFICE/OUTPATIENT SIT EST Diagnosis: COUGH[ICD9: 786.2] Diagnosis: URI, ACUTE[ICD9: 465.9] Jessenia GUAMAN [facility] CPT-4: 30861 12/19/2012 ([id number]) OFFICE/OUTPA TIENT VISIT EST Diagnosis: HYPERTENSION[ICD9: 401.9] Diagnosis: CEPHALGIA[ICD9: 784.0] Diagnosis: ANXIETY STATE NOS[ICD9: 300.00] Diagnosis: FLU VACCINE[ICD9: V04.81] Vikki GUAMAN [facility] CPT-4: 76751 11/27/2012 ([id number]) OFFICE/OUTPA TIENT VISIT EST Diagnosis: DIZZINESS/VERTIGO[ICD9: 780.4] Diagnosis: SINUSITIS, ACUTE[ICD9: 461.9] Diagnosis: Benign positional vertigo[ICD9: 386.11] Vikki MARTINEZ [facility] CPT-4: 65188 10/04/2012 OFFICE/OUTPATIENT SIT EST Diagnosis: OTITIS MEDIA NOS[ICD9: 382.9] [facility] 07/27/2012 OFFICE/OUTPATIENT SIT EST Diagnosis: Perforation of ear drum[ICD9: 384.20] Diagnosis: SINUSITIS, ACUTE[ICD9: 461.9] [facility]: 19197 07/14/2012 ([id number]) OFFICE/OUTPA TIENT VISIT EST Diagnosis: Mastalgia[ICD9: 611.71] Vikki GUAMAN [facility] CPT-4: 94709 06/08/2012 ([id number]) OFFICE/OUTPA TIENT VISIT EST Diagnosis: HYPERLIPIDEMIA NEC/NOS[ICD9: 272.4] Diagnosis: HYPERTENSION[ICD9: 401.9] Diagnosis: DIZZINESS/VERTIGO[ICD9: 780.4] Diagnosis: Hyperglycemia[ICD9: 790.29] Diagnosis: MALAISE AND FATIGUE[ICD9: 780.79] Vikki MARTINEZ [facility] CPT-4: 32860 02/23/2012 ([id number]) OFFICE/OUTPA TIENT VISIT EST Diagnosis: EUSTACHIAN TUBE DYSFUNCTION[ICD9: 381.81] Diagnosis: DIZZINESS/VERTIGO[ICD9: 780.4] Diagnosis: ABDOMINAL PAIN[ICD9: 789.00] Diagnosis: GERD[ICD9: 530.81] Diagnosis: CERUMEN IMPACTION[ICD9: 380.4] Vikki GUAMAN DO [facility] CPT-4: 42846 02/22/2012 OFFICE/OUTPATIENT SIT EST Diagnosis: ABDOMINAL PAIN[ICD9: 789.00] Diagnosis: DYSPEPSIA[ICD9: 536.8] [facility] [facility] CPT-4: 67469 12/28/2011 ([id number]) OFFICE/OUTPA TIENT VISIT EST Diagnosis: ABDOMINAL PAIN[ICD9: 789.00] Diagnosis: DYSPEPSIA[ICD9: 536.8] Diagnosis: IBS[ICD9: 564.1] Vikki GUAMAN DO [facility] CPT-4: 16216 12/15/2011 OFFICE/OUTPATIENT SIT EST Diagnosis: DIZZINESS/VERTIGO[ICD9: 780.4] Diagnosis: HYPOGLYCEMIA[ICD9: 251.2] Vikki GUAMAN DO [facility] CPT-4: 22581 09/21/2011 ([id number]) OFFICE/OUTPA TIENT VISIT EST Diagnosis: URINARY TRACT INFECTION[ICD9: 599.0] Vikki MARTINEZ [facility] CPT-4: 58846 09/16/2011 ([id number]) OFFICE/OUTPA TIENT VISIT EST Diagnosis: HYPERLIPIDEMIA NEC/NOS[ICD9: 272.4] Diagnosis: HYPERTENSION[ICD9: 401.9] Diagnosis: MALAISE AND FATIGUE[ICD9: 780.79] Diagnosis: DIZZINESS/VERTIGO[ICD9: 780.4] Vikki GUAMAN DO [facility] CPT-4: 23939 09/15/2011 ([id number]) OFFICE/OUTPA TIENT VISIT EST Diagnosis: DIZZINESS/VERTIGO[ICD9: 780.4] Diagnosis: MALAISE AND FATIGUE[ICD9: 780.79] Diagnosis: HYPERTENSION[ICD9: 401.9] Vikki GUAMAN DO [facility] CPT-4: 18890 09/13/2011 OFFICE/OUTPATIENT SIT EST Diagnosis: LUMB/LUMBOSAC DISC DEGEN[ICD9: 722.52] Diagnosis: Radiculopathy of leg[ICD9: 724.4] Diagnosis: 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] Diagnosis: SPINAL ENTHESOPATHY[ICD9: 720.1] Vikki GUAMAN [employer] + [facility] CPT-4: 97722 08/16/2011 ([id number]) OFFICE/OUTPA TIENT VISIT EST Diagnosis: PAIN, LOWER BACK[ICD9: 724.2] Diagnosis: SPASM OF MUSCLE[ICD9: 728.85] Diagnosis: SCIATICA[ICD9: 724.3] Diagnosis: Lumbar degenerative disc disease[ICD9: 722.52] Vikki CORTEZLINE Alyssa MARTINEZ [employer] + [facility] CPT-4: 34186 08/03/2011 ([id number]) OFFICE/OUTPA TIENT VISIT EST Diagnosis: PAIN IN THORACIC SPINE[ICD9: 724.1] Diagnosis: SPASM OF MUSCLE[ICD9: 728.85] Vikki RobertsSujata DENIZ [employer] + [facility] CPT-4: 29003 07/26/2011 ([id number]) OFFICE/OUTPA TIENT VISIT EST Diagnosis: PAIN, LOWER BACK[ICD9: 724.2] Diagnosis: SPASM OF MUSCLE[ICD9: 728.85] Diagnosis: Sacroiliac dysfunction[ICD9: 739.4] Diagnosis: Lumbar degenerative disc disease[ICD9: 722.52] Vikki Peckfunmilayosakshi CORTEZVIKKI Alyssa MARTINEZ [employer] + [facility] CPT-4: 77992 06/28/2011 OFFICE/OUTPATIENT SIT EST Diagnosis: MALAISE AND FATIGUE[ICD9: 780.79] Diagnosis: HYPOTENSION[ICD9: 458.9] Diagnosis: CAD[ICD9: 414.00] Vikki Deniz VIKKI AlejandraSujata DENIZ [employer] + [facility] CPT-4: 36654 03/31/2011 OFFICE/OUTPATIENT SIT EST Diagnosis: SINUSITIS, ACUTE[ICD9: 461.9] Diagnosis: PHARYNGITIS, ACUTE[ICD9: 462] Diagnosis: CERUMEN IMPACTION[ICD9: 380.4] Vikki [facility] CPT-4: 36092 02/11/2011 OFFICE/OUTPATIENT SIT EST Diagnosis: PAIN IN THORACIC SPINE[ICD9: 724.1] Diagnosis: GERD[ICD9: 530.81] Diagnosis: DIZZINESS/VERTIGO[ICD9: 780.4] Vikki Shah [facility] CPT-4: 98172 10/15/2010 OFFICE/OUTPATIENT SIT EST Vikki Shah [facility] CPT-4: 43492 09/29/2010 ([id number]) OFFICE/OUTPA TIENT VISIT EST Vikki [facility] CPT-4: 89752 07/02/2010 ([id number]) OFFICE/OUTPA TIENT VISIT, EST Diagnosis: PAIN, LOWER BACK[ICD9: 724.2] Vikki PIKE SSujata [facility] CPT-4: 74570 04/06/2010 ([id number]) OFFICE/OUTPA TIENT VISIT, EST Vikki [facility] CPT-4: 48811 04/01/2010 ([id number]) OFFICE/OUTPA TIENT VISIT, EST Vikki [facility] CPT-4: 04909 01/22/2010 ([id number]) OFFICE/OUTPA TIENT VISIT, EST Vikki [facility] CPT-4: 40446 12/02/2009 ([id number]) OFFICE/OUTPA TIENT VISIT, EST Vikki [facility] CPT-4: 53247 10/21/2009 ([id number]) OFFICE/OUTPA TIENT VISIT, EST Vikki [facility]KE [facility] CPT-4: 18159 09/10/2009 ([id number]) OFFICE/OUTPA TIENT VISIT, EST Vikki [facility] CPT-4: 46719 08/11/2009 ([id number]) OFFICE/OUTPA TIENT VISIT, EST Vikki [facility]KE S[facility] CPT-4: 66534 06/09/2009 Plan of Care Planned Activity Notes [...] : H65.02 11/07/2018 Appointment: Jennifer Rosario [address] [place], [place] [id number] ACUTE ILLNESS 11/07/2018 Visit Diagnosis Plan: Urinary tract infe ction, site not specified Discussion: Started an old abx prescript ion ICD-9 : 599.0 ICD-10 : N39.0 08/14/2018 Visit Diagnosis Plan: Hypoglycemia, unspecified Discussion: Monitor BS At least 6 small meals a day each with protein ICD-9 : 251.2 ICD-10 : E16.2 08/14/2018 Visit Diagnosis Plan: Essential (primary) hypertension Discussion: Stable Check CMP ICD-9 : 401.9 ICD-10 : I10 08/14/2018 Visit Diagnosis Plan: Other fatigue Discussion: Check CBC, TSH ICD-9 : 780.79 ICD-10 : R53.83 08/14/2018 Appointment: Vikki Guaman WPtel: [address] [place], [place] [phone] FOLLOW UP 08/14/2018 Visit Diagnosis Plan: Essential (primary) hypertension Discussion: Stable Sees Dr. Brown this month ICD-9 : 401.9 ICD-10 : I10 05/10/2018 Visit Diagnosis Plan: Urinary tract infe ction, site not specified Discussion: Macrobid 100mg po BID for 1 week ICD-9 : 599.0 ICD-10 : N39.0 05/10/2018 Visit Diagnosis Plan: Gastro-esophageal reflux disease without esophagitis Discussion: Stable on omeprazole Follow Up: 3 months ICD-9 : 530.81 ICD-10 : K21.9 05/10/2018 Appointment: Vikki Guaman WPtel: [address] [place], [place] [id number] [place] FOLLOW UP 05/10/2018 Patient Education: metoprolol tartrate- [employer] Coupon [id number] [email or web address] Completed 05/10/2018 Appointment: [facility] [phone] [facility] [facility] 04/21/2018 Visit Diagnosis Plan: Gastro-esophageal reflux disease without esophagitis Discussion: Continue protonix and carafa te Proceed with updated EGD ICD-9 : 530.81 ICD-10 : K21.9 02/14/2018 Visit Diagnosis Plan: Epigastric pain Discussion: Check CT abdomen/pelvis due to ongoing abdominal pain ICD-9 : 789.06 ICD-10 : R10.13 02/14/2018 Appointment: Vik[facility]aman [facility]el[facility] [address] [facility] [facility] FOLLOW [facility] 02/14/2018 Care Plan: CT PELVIS W/O DYE LOINC : 26369-5 Pending 02/14/2018 Care Plan: CT ABDOMEN W/O DYE LOINC : 89932-1 Pending 02/14/2018 Care Plan: Referral Order SNOMED-CT : [id number] Pending 02/14/2018 Visit Diagnosis Plan: 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 Discussion: S/P cardiac cath--doing medical management with imdur and metoprolol increased Has fwup with cardiology next week Discussed cardiac rehab ICD-9 : 414.00 ICD-10 : I25.10 01/10/2018 Visit Diagnosis Plan: Generalized anxiety disorder Discussion: Stable ICD-9 : 300.00 ICD-10 : F41.1 01/10/2018 Visit Diagnosis Plan: Gastro-esophageal reflux disease without esophagitis Discussion: Continue protonix at BID dos ing and carafate BID Follow Up: 2 months ICD-9 : 530.81 ICD-10 : K21.9 01/10/2018 Visit Diagnosis Plan: Essential (primary) hypertension Discussion: Stable ICD-9 : 401.9 ICD-10 : I10 01/10/2018 Appointment: Vikki Guaman WPtel: [address] [place], [place] [phone] [place] FOLLOW UP 01/10/2018 Visit Diagnosis Plan: Gastro-esophageal reflux disease without esophagitis Discussion: Continue protonix at BID dos ing Continue carafate at q AC and HS dosing for 2 more weeks then decrease to BID dosing Follow Up: 4 weeks ICD-9 : 530.81 ICD-10 : K21.9 12/06/2017 Visit Diagnosis Plan: Urinary tract infe [...] R00.2 12/06/2017 Appointment: Vikki Guaman WPtel: [address] [facility] [place] [address] FOLLOW UP 12/06/2017 Patient Education: Patient Medication Summary Completed 12/06/2017 Appointment: Vikki Guaman WPtel: [address] [place], [place] [phone] LAB 11/30/2017 Patient Education: Patient Medication Summary [...] F41.1 11/22/2017 Appointment: Vikki Guaman WPtel: [address] [facility] [place] [address] FOLLOW UP 11/22/2017 Patient Education: Patient Medication [...] K21.9 10/20/2017 Appointment: Vikki Guaman WPtel: [address] [facility] [place] [address] ACUTE ILLNESS 10/20/2017 Patient Education: Patient Medication Summary Completed 10/20/2017 Visit Diagnosis Plan: Dizziness and giddiness Discussion: blood work to be completed in office including cmp, cbc, troponin to rule out glucose intolerance, infection, dehydration. 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 brown's office. will have front office make appt. patient has carotid doppler annually. ICD-9 : 780.4 ICD-10 : R42 09/27/2017 Appointment: Jennifer Rosario [address] [place] [address] ACUTE ILLNESS 09/27/2017 Patient Education: Patient Medication Summary Completed 09/27/2017 Visit Diagnosis Plan: Cervicalgia Di scussion: Complete course of PT since symptoms improved Continue stretching exercises Notify if symptoms return or worsen ICD-9 : 723.1 ICD-10 : M54.2 08/16/2017 Appointment: Vikki Guaman WPtel: [facility] [address] FOLLOW UP 08/16/2017 Patient Education: Patient [...] H81.43 07/07/2017 Appointment: Vikki Guaman WPtel: [phone] [facility] 07/07/2017 Patient Education: Patient Medication Summary Completed 07/07/2017 Care Plan: MRI NECK SPINE W/O DYE LOINC : 58242-3 Pending 07/07/2017 Visit Diagnosis Plan: Otalgia, bilateral [...] : H81.13 05/30/2017 Appointment: Jennifer Rosario [address] [place], [place] [id number] ACUTE ILLNESS 05/30/2017 Patient Education: Patient Medication [...] M54.17 04/18/2017 Appointment: Vikki Guaman WPtel: [address] [facility] [place] [address] ACUTE ILLNESS 04/18/2017 Patient Education: Patient Medication Summary Completed 04/18/2017 Appointment: Vikki Guaamn WPtel: [address] [place], [place] [phone] US INJECTION 12/10/2016 Patient Education: Patient Medication Summary Completed 12/10/2016 Appointment: Vikki Guaman WPtel: [address] [facility] [place] [address] LAB 11/01/2016 Patient Education: Patient Medication Summary Completed 11/01/2016 Visit Diagnosis Plan: Pain in thoracic spine Discussion: PT has helped Continue stretches and walking Discussed joining [facility] to continue exercise ICD-9 : 724.1 ICD-10 : M54.6 10/25/2016 Visit Diagnosis Plan: Other intervertebr al disc degeneration, lumbar region Follow Up: 3 months ICD-9 : 722.52 ICD-10 : M51.36 10/25/2016 Appointment: Vikki Guaman WPtel: [address] [facility] [place] [address] FOLLOW UP 10/25/2016 Patient Education: Patient Medication [...] : R10.32 09/20/2016 Appointment: Vikki Guaman WPtel: [address] [place], [place] [phone] ACUTE ILLNESS 09/20/2016 Patient Education: Patient Medication Summary Completed 09/20/2016 Appointment: Vikki Guaman WPtel: [address] [place], [place] [phone] [place] LAB 05/13/2016 Patient Education: Patient Medication [...] : N64.4 05/12/2016 Appointment: Vikki Guaman WPtel: [address] [place] [address] US 05/11 confirmed `sl ACUTE ILLNESS 05/12/2016 Patient Education: Patient Medication Summary Completed 05/12/2016 Care Plan: MAMMOGRAM SCREENING [facility] : 87517-3 Pending 05/12/2016 Visit Diagnosis Plan: Acute upper respir atory infection, unspecified Discussion: Exam is reassuring Likely vi ral illness Supportive care reviewed and encouraged Follow up PRN ICD-9 : 465.9 ICD-10 : J06.9 03/18/2016 Appointment: Yue Moya [address] [place], [place] [phone] ACUTE ILLNESS 03/18/2016 Patient Education: Patient Medication Summary Completed 03/18/2016 Visit Plan: Supportive care. Rest, Fluids, Tylenol/Motrin prn fever or bodyaches. Notify if worsening symptoms. 02/06/2016 Appointment: Vikki Guaman WPtel: [address] [place], [place] [phone] ACUTE ILLNESS 02/06/2016 Patient Education: Patient Medication Summary Completed 02/06/2016 Appointment: Vikki Guaman WPtel: [address] [place], [place] [phone] [place] INJECTION 12/12/2015 Patient Education: Patient Medication Summary Completed 12/12/2015 Appointment: Vikki Guaman WPtel: [address] [place], [place] [id number] [place] LAB 11/25/2015 Patient Education: Patient Medication Summary Completed 11/25/2015 Visit Plan: Add miralax daily Use d aily probiotic and metamucil and push fluids Notify if worsens/persists 08/26/2015 Appointment: Vikki Guaman WPtel: [address] [place], [place] [phone] 08/25/15 confirmed ~sl ACUTE ILLNESS 08/26/2015 Patient Education: Patient Medication Summary Completed 08/26/2015 Visit Plan: No NSAIDs Kidney functi on discussed Discussed hydration Monitor lab every 4months so will check CMP, HbA1C next month 05/21/2015 Visit Plan: No NSAIDs Kidney functi on discussed Discussed hydration Monitor lab every 4months so will check CMP, HbA1C next month 05/21/2015 Appointment: Vikki Guaman WPtel: [address] [place], [place] [phone] 05/19 confirmed ~sl ACUTE ILLNESS 05/21/2015 Patient [...] Chem 7 02/19/2015 Appointment: Vikki Guaman WPtel: [address] [place], [place] [phone] 02/18/15 appt confirmed cn FOLLOW UP 02/19/2015 Patient Education: Patient Medication Summary Completed 02/19/2015 Patient Education: Vertigo Completed 02/19/2015 Appointment: Vikki Guaman WPtel: [address] [place], [place] [phone] INJECTION 12/20/2014 Patient Education: Patient Medication Summary Completed 12/20/2014 Appointment: Vikki Gumaan WPtel: [address] [place], [place] [phone] UA 11/19/2014 Patient Education: Patient Medication Summary Completed 11/19/2014 Referral: Edy Cheek WPtel: #1 [facility]66[facility] Referral Completed 11/18/2014 Appointment: Vikki Guaman WPtel: [address] [facility] [place] [address] LAB 11/14/2014 Patient Education: Patient Medication Summary Completed 11/14/2014 Visit Plan: Check CMP, CBC, TSH, Fr ee T4, B12, Lipids, HbA1C Discussed 6 small meals a day each with protein Would likely benefit from antidepressant Update colonoscopy 11/13/2014 Appointment: Vikki Guaman WPtel: [address] [place], [place] [phone] 11/12/14 confirmed ACUTE ILLNESS 11/13/2014 Patient Education: Patient Medication Summary Completed 11/13/2014 Visit Plan: Cerumen flush with warm water and peroxide - good results Resume Nasonex nasal spray daily Recommended Debrox earwax removal drops 09/27/2014 Visit Plan: Cerumen flush with warm water and peroxide - good results Resume Nasonex nasal spray daily Recommended Debrox earwax removal drops 09/27/2014 Appointment: Jessenia Francis WPtel: [address] [place], [place] [phone] ACUTE ILLNESS 09/27/2014 Patient Education: Patient Medication Summary Completed 09/27/2014 Visit Plan: Continue aspirin daily Add meloxicam for 1week Elevate and Ice Call on Tuesday07/11/2014 Appointment: Vikki Guaman WPtel: [address] [facility] [place] [address] ACUTE ILLNESS 07/11/2014 Patient Education: Patient Medication Summary Completed 07/11/2014 Visit Plan: Been using baclofen at bedtime and has helped some PT for next 2-4weeks 05/23/2014 Appointment: Vikki Guaman WPtel: [address] [facility] [place] [address] Hospital Follow Up 05/23/2014 Patient Education: Patient Medication Summary Completed 05/23/2014 Appointment: Vikki Guaman WPtel: [address] [facility] [place] [address] LAB 05/10/2014 Appointment: Vikki Guaman WPtel: [address] [facility] [place] [address] feeling better, weather - FOLLOW UP 04/24/2014 Referral: Edy Cheek WPtel: [address] [facility] [address] Referral Appointment Requested 04/03/2014 Visit Plan: Continue exercise and c urrent meds See surgery for removal of right arm lesion 03/20/2014 Appointment: Vikki Guaman WPtel: [address] [facility] [place] [address] FOLLOW UP 03/20/2014 Patient Education: Patient Medication Summary Completed 03/20/2014 Appointment: Vikki Guaman WPtel: [address] [place] [address] US INJECTION 12/21/2013 Patient Education: Patient Medication Summary Completed 12/21/2013 Visit Plan: Resume Claritin PO yesi y May take Ibuprofen PM at night for sleep Continue Flonase 2 sprays each nostril bid Complete prednisone 20 mg PO bid 10/17/2013 Appointment: Jessenia Francis WPtel: [address] [place], [place] [phone] ACUTE ILLNESS 10/17/2013 Patient Education: Patient Medication Summary Completed 10/17/2013 Visit Plan: Discussed that likely l umbar etiology for leg weakness Will change amlodopine to low dose dyazide and see if helps legs and inner ear 09/24/2013 Appointment: Vikki Guaman WPtel: [address] [facility] [place] [address] FOLLOW UP 09/24/2013 Patient Education: Patient Medication Summary Completed 09/24/2013 Visit Plan: Ceftin and continue cla ritin/flonase Decrease amlodopine to 2.5mg q HS until fwup with Card due to weakness 05/31/2013 Appointment: Vikki Guaman WPtel: [address] [facility] [place] [address] ACUTE ILLNESS 05/31/2013 Patient Education: Patient Medication Summary Completed 05/31/2013 Appointment: Vikki Guaman WPtel: [address] [place], [place] [phone] [place] LAB 03/28/2013 Patient Education: Patient Medication Summary Completed 03/28/2013 Visit Plan: States she is having he r carotids "done" this Tuesday03/28/13 Return this week for fasting labs. CBC, CMP, TSH Free T4, Lipid Panel and HgbA1C. 03/26/2013 Appointment: Jessenia Francis WPtel: [address] [place], [place] [phone] ACUTE ILLNESS 03/26/2013 Patient Education: Patient Medication Summary Completed 03/26/2013 Visit Plan: Supportive care. Rest, Fluids, Tylenol prn fever or bodyaches. Notify if worsening symptoms. Ceftin 12/19/2012 Appointment: Jessenia Francis WPtel: [address] [place], [place] [phone] ACUTE ILLNESS 12/19/2012 Patient Education: Patient Medication Summary Completed 12/19/2012 Appointment: Vikki Guaman WPtel: [address] [place], [place] [phone] US BP CHECK 12/04/2012 Patient Education: Patient Medication Summary Completed 12/04/2012 Visit Plan: Continue increased dose of metoprolol Moniter BP at home BP check in 1wk Xanax refill to use prn 11/27/2012 Visit Plan: Continue increased dose of metoprolol Moniter BP at home BP check in 1wk 11/27/2012 Appointment: Vikki Guaman WPtel: [address] [place], [place] [phone] ER Follow UP 11/27/2012 Patient Education: Patient Medication Summary Completed 11/27/2012 Visit Plan: Restart flonase BID Use meclizine 25mg q HS Vestibular exercises Claritin 10mg q AM See ENT if doesn't resolve 10/04/2012 Appointment: Vikki Guaman WPtel: [address] [facility] [place] [address] ACUTE ILLNESS 10/04/2012 Patient Education: Patient Medication Summary Completed 10/04/2012 Visit Plan: Will continue to observ e 07/27/2012 Appointment: Vikki Guaman WPtel: [address] [place], [place] [phone] FOLLOW UP 07/27/2012 Patient Education: Patient Medication [...] ear recheck. 07/14/2012 Appointment: Evelyn Santos WPtel: [address] [place] [address] ACUTE ILLNESS 07/14/2012 Patient Education: Patient Medication Summary Completed 07/14/2012 Visit Plan: Decrease caffeine intak e Check Bilateral Mammogram with US of left breast 06/08/2012 Appointment: Vikki Guamantehector: [address] [place], [place] [phone] ACUTE ILLNESS 06/08/2012 Patient Education: Patient Medication Summary Completed 06/08/2012 Appointment: Alisia Campbell WPtel: [address] [place], [place] [phone] appt scheduled 04/06 ACUTE ILLNESS 04/10/2012 Appointment: Vikki Guaman WPtel: [address] [place], [place] [phone] LAB 02/23/2012 Patient Education: Patient Medication Summary [...] T4, HbA1C 02/22/2012 Appointment: Vikki Guaman WPtel: [address] [place], [place] [phone] FOLLOW UP 02/22/2012 Patient Education: Patient Medication Summary Completed 02/22/2012 Visit Plan: Continue carafate for 4 more weeks at current dose then decrease to BID for 2wks then q HS 12/28/2011 Appointment: Vikki Guaman WPtel: [address] [place], [place] [phone] FOLLOW UP 12/28/2011 Patient Education: Patient Medication Summary Completed 12/28/2011 Visit Plan: Continue omeprazole Add Carafate 1gm po q AC Add daily probiotic 12/15/2011 Appointment: Vikki Guaman WPtel: [address] [place], [place] [phone] ACUTE ILLNESS 12/15/2011 Patient Education: Patient Medication Summary Completed 12/15/2011 Appointment: Vikki Guaman WPtel: [address] [place], [place] [phone] [place] INJECTION 12/02/2011 Patient Education: Patient Medication Summary Completed 12/02/2011 Visit Plan: Diabetic Diet Accucheck s BID alternating times Hold onglyza and Januvia for now and continue diet and exercise and weight loss and lana BAPTISTE Discussed hypoglycemia and snack of peanut butter and crackers with juice or milk 09/21/2011 Appointment: Vikki Guamantel: [address] [place], [place] [phone] WORK IN 09/21/2011 Patient Education: Patient Medication Summary Completed 09/21/2011 Appointment: Vikki Guaman WPtel: [address] [place], [place] [phone] UA 09/16/2011 Patient Education: Patient Medication Summary Completed 09/16/2011 Appointment: Vikki Guamantel: [address] [place], [place] [phone] LAB 09/15/2011 Patient Education: Patient Medication Summary Completed 09/15/2011 Visit Plan: Fasting lab to check CM P, Lipids, CBC, TSH, Free T4, HbA1C, Insulin level Hold Zocor for next 2wks 09/13/2011 Appointment: Vikki Guamantel: [address] [facility] [place] [address] ACUTE ILLNESS 09/13/2011 Patient Education: Patient Medication Summary Completed 09/13/2011 Visit Plan: Injection to Right SI j oint as above Pt will call in 3 days on pain Has PT starting in 2wks. 08/16/2011 Appointment: Vikki Guaman WPtel: [address] [place], [place] [phone] ACUTE ILLNESS 08/16/2011 Patient Education: Patient Medication Summary Completed 08/16/2011 Visit Plan: OMT done Start PT May n eed updated MRI if need to consider epidural Prednisone 08/03/2011 Appointment: Vikki Guamantel: [address] [place], [place] [phone] OMT 08/03/2011 Patient Education: Patient Medication Summary Completed 08/03/2011 Visit Plan: Flexeril and Vimovo OMT done Daily stretches 07/26/2011 Appointment: Vikki Guaman WPtel: [address] [facility] [place] [address] ACUTE ILLNESS 07/26/2011 Patient Education: Patient Medication Summary Completed 07/26/2011 Visit Plan: OMT done Daily stretche s Moist heat or biofreeze Right SI joint injection Call in 1week Vimovo BID 06/28/2011 Appointment: Vikki Guaman WPtel: [address] [facility] [place] [address] ACUTE ILLNESS 06/28/2011 Patient Education: Patient Medication Summary Completed 06/28/2011 Appointment: Vikki Guaman WPtel: [address] [facility] [place] [address] LAB 04/01/2011 Patient Education: Patient Medication Summary Completed 04/01/2011 Visit Plan: Decrease amlodopine to 1.25mg daily Schedule with Cardiology Fasting lab in AM 03/31/2011 Appointment: Vikki Guaman WPtel: [address] [facility] [place] [address] ACUTE ILLNESS 03/31/2011 Patient Education: Patient Medication Summary Completed 03/31/2011 Visit Plan: Saline nasal flushes pr n. Tylenol/Motrin prn headache. Notify if persists/symptoms worsening. Cerumen removal from ears as above 02/11/2011 Appointment: Vikki Guaman WPtel: [address] [facility] [place] [address] ACUTE ILLNESS 02/11/2011 Patient Education: Patient Medication Summary Completed 02/11/2011 Appointment: Vikki Guaman WPtel: [address] [place] [address] [place] INJECTION 12/09/2010 Patient Education: Patient Medication Summary Completed 12/09/2010 Visit Plan: Continue vimovo for 1mo re week Increase Omeprazole to BID for 1mo then resume QD if stomach improved Vestibular exercises with meclizine q HS for next week 10/15/2010 Appointment: Vikki Guaman WPtel: [address] [facility] [place] [address] FOLLOW UP 10/15/2010 Patient Education: Patient Medication Summary Completed 10/15/2010 Visit Plan: Trial of Vimovo 50/200m g po BID Check UA 09/29/2010 Appointment: Vikki Guaman WPtel: [address] [place] [place] [address] ACUTE ILLNESS 09/29/2010 Patient Education: Patient Medication Summary Completed 09/29/2010 Appointment: Vikki Guaman WPtel: [address] [facility] [place] [address] LAB 07/06/2010 Patient Education: Patient Medication Summary Completed 07/06/2010 Visit Plan: Saline nasal flushes pr n. Tylenol/Motrin prn headache. Notify if persists/symptoms worsening. Add Veramyst Increase Omeprazole to 20mg po BID 07/02/2010 Appointment: Vikki Guaman WPtel: [address] [facility] [place] [address] ACUTE ILLNESS 07/02/2010 Patient Education: Patient Medication Summary Completed 07/02/2010 Visit Plan: Injection to right SI j oint as above Continue Vimovo Daily stretches Pt will call at end of week to let us know how back is doing 04/06/2010 Appointment: Vikki Guaman WPtel: [address] [facility] [place] [address] FOLLOW UP 04/06/2010 Patient Education: Patient Medication Summary Completed 04/06/2010 Visit Plan: Toradol 30mg IM now x1 Vimovo 200/50 po BID Decrease Norvasc to 1/2 tablet daily Increase Lexaprol to 10mg QD 04/01/2010 Appointment: Vikki Guaman WPtel: [address] [facility] [place] [address] ACUTE ILLNESS 04/01/2010 Patient Education: Patient Medication Summary Completed 04/01/2010 Visit Plan: Nasocourt sample given. Pt. will notify if symptoms are worse on Tuesday. 01/22/2010 Appointment: Alisia Campbell WPtel: [address] [place] [address] ACUTE ILLNESS 01/22/2010 Patient Education: Patient Medication Summary Completed 01/22/2010 Appointment: Vikki Guaman WPtel: [address] [facility] [place] [address] INJECTION 12/10/2009 Patient Education: Patient Medication Summary Completed 12/10/2009 Visit Plan: Cipro for UTI Cont Talihina pro at 5mg QD Flu shot next week 12/02/2009 Appointment: Vikki Guaman WPtel: [address] [facility] [place] [address] FOLLOW UP 12/02/2009 Patient Education: Patient Medication Summary Completed 12/02/2009 Patient Education: Lexapro Completed 12/02/2009 Visit Plan: May proceed with hiatal hernia repair per Card. so will contact Dr. Mariscal's office to proceed with surgery 10/21/2009 Visit Plan: May proceed with hiatal hernia repair per Card. so will contact Dr. Mariscal's office to proceed with surgery Trial of Lexapro 5mg QD plus use xanax prn 10/21/2009 Appointment: Vikki Guaman WPtel: [address] [facility] [place] [address] FOLLOW UP 10/21/2009 Patient Education: Patient Medication Summary Completed 10/21/2009 Visit Plan: B12 given Cont oral B12 and iron Fwup 1mo for B12 Proceed with hiatal hernia repair once card clearance 09/10/2009 Appointment: Vikki Guaman WPtel: [address] [facility] [place] [address] FOLLOW UP 09/10/2009 Patient Education: Patient Medication Summary Completed 09/10/2009 Visit Plan: No caffeine, no nicotin e, no mints, no late meals, elevate HOB 30 degrees Cont. with Nexium See Card to discuss Hiatal Hernia Repair B12 given 08/11/2009 Appointment: Vikki Guaman WPtel: [address] [facility] [place] FOLLOW UP 08/11/2009 Patient Education: Patient Medication Summary Completed 08/11/2009 Appointment: Vikki Guaman WPtel: [address] [facility] [place] LAB 06/10/2009 Patient Education: Patient Medication Summary Completed 06/10/2009 Visit Plan: Check fasting lab in AM --CMP,Lipids, CBC, Vit D, TSH,FreeT4, B12 06/09/2009 Appointment: Vikki Guaman WPtel: [facility] FOLLOW UP 06/09/2009 Patient Education: Patient Medication Summary Completed 06/09/2009 Referral: [facility] [place] Ref[place] Appointment Requested Referral: Edy Cheek [facility] [id number] Ref[place] Initiated Instructions Comment . ERx for Augmentin 875mg q12 x 10 days and Floxin otic drops 5 gtts AD x7days Sample of Nasonex per pt request Discussed treatment (nasal saline, salt water gargles, keeping right ear clean and dry, for worsening go to on weekend, Tylenol/ibuprofen, etc.) RTC 2 weeks for ear recheck. Right SI joint clean sed with alchohol and betadine and injected with 3cc 1% lidocaine with 40mg depomedrol and 40mg kenalog, tolerated well with no complications, neosporin and bandage applied. OMT done Daily stretches Moist heat or biofreeze Right SI joint injection Call in 1week Vimovo BID . Continue omeprazol e Add Carafate 1gm [...] AM--CMP,Lipids, CBC, Vit D, TSH,FreeT4, B12 . May proceed with h iatal hernia repair per Card. so will contact Dr. Mariscal's office to proceed with surgery . Continue increased dose of metoprolol Moniter BP at home BP check in 1wk Xanax refill to use prn . Continue increased dose of metoprolol Moniter BP at home BP check in 1wk . Restart flonase BI D Use meclizine 25mg q HS Vestibular exercises Claritin 10mg q AM See ENT if doesn't resolve . Fasting lab to [facility] CMP, Lipids, CBC, TSH, Free T4, HbA1C, Insulin level Hold Zocor for next 2wks . Resume Claritin PO daily May take Ibuprofen PM at night for sleep Continue Flonase 2 sprays each nostril bid Complete prednisone 20 mg PO bid . Add miralax daily Use daily probiotic and metamucil and push fluids Notify if worsens/persists . Continue aspirin d aily Add meloxicam for 1week Elevate and Ice Call on Tuesday . Discussed that lik clementine lumbar etiology for leg weakness Will change amlodopine to low dose dyazide and see if helps legs and inner ear . Cipro for UTI Cont Lexapro at 5mg QD Flu shot next week . Saline nasal flus hes prn. Tylenol/Motrin prn headache. Notify if persists/symptoms worsening. Cerumen removal from ears as above . Toradol 30mg IM no w x1 Vimovo 200/50 po BID Decrease Norvasc to 1/2 tablet daily Increase Lexaprol to 10mg QD . Decrease amlodopin e to 1.25mg daily Schedule with Cardiology Fasting lab in AM . Saline nasal flush es prn. Tylenol/Motrin [...] checked in March Check Chem 7 . Will continue to o bserve . May proceed with h iatal hernia repair per Card. so will contact Dr. Mariscal's office to proceed with surgery Trial of Lexapro 5mg QD plus use xanax prn . Trial of Vimovo 50 /200mg po BID Check UA . Flexeril and Vimov o OMT done Daily stretches . OMT done Start PT May need updated MRI if need to consider epidural Prednisone . Continue vimovo fo r 1more week [...] for removal of right arm lesion . Ceftin and continu e claritin/flonase Decrease amlodopine to 2.5mg q HS until fwup with Card due to weakness . Continue off caraf ate and see how does Continue probiotic Add Vestibular exercises and use meclizine prn Continue Nasonex Informed Consent obt ainded. Right SI joint cleansed with alcohol and betadine and injected with 3cc 1%l lidocaine with 40mg depomedrol and 40mg kenalog, tolerated well with no complications, neosporin and bandage applied. Injection to Right SI joint as above Pt will call in 3 days on pain Has PT starting in 2wks. Left ear flushed wit h warm water [...] Mammogram with US of left breast . Injection to right SI joint as [...] bodyaches. Notify if worsening symptoms. Ceftin . Check CMP, CBC, TS H, Free T4, B12, Lipids, HbA1C Discussed 6 small meals a day each with protein Would likely benefit from antidepressant Update colonoscopy
--- OUTSIDE RECORDS SUMMARY | 2019-04-25 20:53 | XMS REPORT | CCD ---
Author Author Evelyne Guaman D.O. 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 PP Unavailable CCM Unavailable Summary Purpose Interface Exchange Insurance Providers Payer name Policy type / Coverage type Covered green party ID Effective Begin Date Effective End Date WPS MEDICARE PART B [place] Medicare Part B [id number] 2017 Unknown [facility] Medicare Part B [id number] Unknown Family history Father Diagnosis Age At Onset Heart disease Unknown Mother Diagnosis Age At Onset Heart disease Unknown Cancer Unknown Social History Social History Element Codes Description Effective Dates Tobacco history SNOMED CT: 433384307 Never smoker 09/29/2010 Marital status Unknown S [...] 11/22/2017 Unknown 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 [...] 11/22/2017 Active 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 [...] Reli ef 50 mcg/actuation nasal spray,suspension RxNorm: 3874241 2 [place] NASAL QHS 11/07/2018 No Stop Date Active simvastatin 40 mg ta blet RxNorm: 535742 1 Tablet(s) PO QD 10/23/2018 01/20/2019 Active simvastatin 40 mg ta blet RxNorm: 696687 1 Tablet(s) PO QD 07/24/2018 10/21/2018 Inactive omeprazole 40 mg cap steven,delayed release RxNorm: 878146 1 Capsule(s) PO QD 07/13/2018 11/09/2018 Ac tive simvastatin 40 mg ta blet RxNorm: 006218 1 Tablet(s) PO QD 06/13/2018 07/12/2018 Inactive omeprazole 40 mg cap steven,delayed release RxNorm: 019764 1 Capsule(s) PO QD 06/13/2018 07/12/2018 In active Bactrim DS 800 mg-16 0 mg tablet RxNorm: 431623 1 Tablet(s) PO BID 05/12/2018 05/18/2018 Inactive Bactrim DS 800 mg-16 0 mg tablet RxNorm: 394997 1 Tablet(s) PO BID 05/12/2018 05/11/2018 Inactive metoprolol tartrate 25 mg tablet RxNorm: 590461 1 Tablet(s) PO BID 05/10/2018 11/05/2018 Inactive Macrobid 100 mg capsule RxNorm: 475337 1 Capsule(s) PO BID 05/10/2018 05/16/2018 Inactive Xanax 0.25 mg tablet RxNorm: 621786 TAKE 1 TABLET BY MOUTH TWICE DAILY 02/16/2018 No Stop Date Active Xanax 0.25 mg tablet RxNorm: 728937 1 Tablet(s) PO BID 02/14/2018 02/16/2018 Inactive Protonix 40 mg table t,delayed release RxNorm: 897552 1 Tablet(s) PO BID fo r stomach--replaces omeprazole 01/10/2018 05/09/2018 Inactive Carafate 1 gram tablet RxNorm: 973355 1 Tablet(s) PO AC & HS 01/10/2018 05/09/2018 Inactive Xanax 0.25 mg tablet RxNorm: 766041 1 Tablet(s) PO BID 01/03/2018 02/13/2018 Inactive Bactrim DS 800 mg-16 0 mg tablet RxNorm: 542731 1 Tablet(s) PO BID 12/08/2017 12/12/2017 Inactive Bactrim DS 800 mg-16 0 mg tablet RxNorm: 644663 1 Tablet(s) PO BID 12/08/2017 12/07/2017 Inactive Carafate 1 gram tablet RxNorm: 800691 1 Tablet(s) PO AC & HS 11/22/2017 12/21/2017 Inactive Protonix 40 mg table t,delayed release RxNorm: 548777 1 Tablet(s) PO BID fo r stomach--replaces omeprazole 11/22/2017 01/09/2018 Inactive Protonix 40 mg table t,delayed release RxNorm: 147954 1 Tablet(s) PO BID fo r stomach--replaces omeprazole 10/20/2017 11/21/2017 Inactive fluticasone 50 mcg/a ctuation nasal spray,suspension RxNorm: 6238097 2 [place] NASAL QD to each nostril 07/07/2017 08/13/2018 Inactive Nasonex 50 mcg/actua tion [place] RxNorm: 5776842 2 [place] NASAL 07/07/2017 07/07/2017 Inactive omeprazole 40 mg cap steven,delayed release RxNorm: 265199 1 Capsule(s) PO QD 04/18/2017 10/19/2017 In active simvastatin 40 mg ta blet RxNorm: 834889 1 Tablet(s) PO QD MALISSA E 1 TABLET EVERY DAY 04/18/2017 04/12/2018 In active metoprolol tartrate 25 mg tablet RxNorm: 026207 1/2 Tablet(s) PO QD 04/18/2017 01/09/2018 Inactive simvastatin 40 mg ta blet RxNorm: 046604 Tablet(s) TAKE 1 TABL ET EVERY DAY 10/27/2016 04/17/2017 In active metoprolol tartrate 25 mg tablet RxNorm: 292166 1/2 Tablet(s) PO QD 09/20/2016 03/18/2017 Inactive Flonase 50 mcg/actua tion nasal spray,suspension RxNorm: 3357026 2 [place] NASAL BID 09/20/2016 04/17/2017 In active omeprazole 40 mg cap steven,delayed release RxNorm: 967726 1 Capsule(s) PO QD 09/08/2016 04/17/2017 In active metoprolol tartrate 25 mg tablet RxNorm: 797014 1/2 Tablet(s) PO QD 06/14/2016 09/19/2016 Inactive ciprofloxacin 0.2 % ear drops in a dropperette RxNorm: 122948 4 Drop(s) OTIC TID fo r 1 week 02/06/2016 05/11/2016 Inactive cefdinir 300 mg capsule RxNorm: 055686 2 Capsule(s) PO QD 02/06/2016 02/15/2016 Inactive omeprazole 40 mg cap steven,delayed release RxNorm: 331554 TAKE 1 CAPSULE EVERY DAY 11/06/2015 09/08/2016 In active simvastatin 40 mg ta blet RxNorm: 898075 TAKE 1 TABLET EVERY DAY 10/08/2015 10/27/2016 Inactive Flonase 50 mcg/actua tion nasal spray,suspension RxNorm: 4036128 2 [place] NASAL BID 02/19/2015 09/19/2016 In active cefuroxime axetil 25 0 mg tablet RxNorm: 825076 1 Tablet(s) PO BID 11/21/2014 11/20/2014 Inactive cefuroxime axetil 25 0 mg tablet RxNorm: 104693 1 Tablet(s) PO BID 11/21/2014 11/27/2014 Inactive omeprazole 40 mg cap steven,delayed release RxNorm: 368150 1 Capsule(s) PO QD 10/09/2014 01/05/2015 In active meloxicam 7.5 mg tablet RxNorm: 064667 1 Tablet(s) PO QD 07/11/2014 08/09/2014 Inactive loratadine 10 mg tablet RxNorm: 280214 1 Tablet(s) PO QAM for allergies 10/17/2013 08/13/2018 In active Flonase 50 mcg/actua tion nasal spray,suspension RxNorm: 098863 2 [place] NASAL BID 10/17/2013 02/18/2015 In active prednisone 20 mg tablet RxNorm: 134793 2 Tablet(s) PO BID 10/17/2013 10/21/2013 Inactive Dyazide 37.5 mg-25 m g capsule RxNorm: 971220 1 Capsule(s) PO QAM 09/24/2013 10/16/2013 Inactive Ceftin 500 mg tablet RxNorm: 885433 1 Tablet(s) PO BID 05/31/2013 06/09/2013 Inactive Ceftin 500 mg tablet RxNorm: 742620 1 Tablet(s) PO BID 03/26/2013 04/04/2013 Inactive simvastatin 40 mg ta blet RxNorm: 126061 Tablet(s) PO TAKE ONE TABLET BY MOUTH EVERY DAY 03/26/2013 10/07/2015 Inactive metoprolol tartrate 25 mg tablet RxNorm: 171233 Tablet(s) PO TAKE ONE -HALF TABLET BY MOUTH EVERY DAY 03/26/2013 11/12/2014 Inactive Ceftin 500 mg tablet RxNorm: 730416 1 Tablet(s) PO BID 12/19/2012 12/28/2012 Inactive loratadine 10 mg tablet RxNorm: 898986 1 Tablet(s) PO QAM for allergies 10/04/2012 12/02/2012 In active omeprazole 20 mg cap steven,delayed release RxNorm: 523248 Capsule(s) PO TAKE ON E CAPSULE BY MOUTH TWICE DAILY 08/09/2012 10/08/2014 Inactive omeprazole 20 mg cap steven,delayed release RxNorm: 421789 1 Capsule(s) PO BID 08/09/2012 05/09/2018 In active Augmentin 875 mg-125 mg tablet RxNorm: 115304 1 Tablet(s) PO Q12H 07/14/2012 07/23/2012 Inactive Floxin Otic Drops 1 bottle Drops RxNorm: 5 Drop(s) OTIC BID 07/14/2012 07/20/2012 Inactive metoprolol tartrate 25 mg tablet RxNorm: 244437 Tablet(s) PO TAKE ONE -HALF TABLET BY MOUTH EVERY DAY 04/11/2012 03/25/2013 Inactive simvastatin 40 mg ta blet RxNorm: 120844 Tablet(s) PO TAKE ONE TABLET BY MOUTH EVERY DAY 04/11/2012 03/25/2013 Inactive lancets RxNorm: Misc Miscellaneous USE ONE TO CHECK GLUC OSE EVERY DAY 04/04/2012 05/09/2018 In active Carafate 1 gram tablet RxNorm: 537685 1 Tablet(s) PO AC & HS 02/22/2012 11/12/2014 Inactive Flagyl 500 mg tablet RxNorm: 650626 1 Tablet(s) PO TID 12/15/2011 12/21/2011 Inactive Carafate 1 gram tablet RxNorm: 566924 1 Tablet(s) PO AC & HS 12/15/2011 02/12/2012 Inactive One Touch Test strips RxNorm: Miscellaneous QD 09/21/2011 05/09/2018 Inactive one touch ultra mini test strips Protonix 40 mg Tab RxNorm: 955626 1 Tablet(s) PO QD 09/13/2011 09/12/2011 Inactive Protonix 40 mg Tab RxNorm: 080275 1 Tablet(s) PO QD 09/13/2011 12/14/2011 Inactive prednisone 20 mg Tab RxNorm: 893089 1 Tablet(s) PO BID 08/03/2011 08/09/2011 Inactive Flexeril 5 mg Tab RxNorm: 598367 1 Tablet(s) PO QHS for spasm 07/26/2011 08/24/2011 Inactive Flexeril 5 mg Tab RxNorm: 404270 1 Tablet(s) PO QHS for spasm 06/28/2011 07/25/2011 Inactive amlodipine 2.5 mg Tab RxNorm: 131518 1/2 Tablet(s) PO QD replaces 5mg dose 03/31/2011 06/27/2011 In active simvastatin 40 mg ta blet RxNorm: 955202 1 Tablet(s) PO QD 03/31/2011 03/24/2012 Inactive metoprolol tartrate 25 mg tablet RxNorm: 074561 1/2 Tablet(s) PO QD 03/31/2011 03/24/2012 Inactive omeprazole 20 mg cap steven,delayed release RxNorm: 657793 1 Capsule(s) PO BID 03/31/2011 09/12/2011 In active cefdinir 300 mg Cap RxNorm: 858493 2 Capsule(s) PO QD 02/11/2011 02/20/2011 Inactive simvastatin 40 mg Tab RxNorm: 748158 1 Tablet(s) PO QD 02/01/2011 03/30/2011 Inactive metoprolol tartrate 25 mg Tab RxNorm: 084153 1/2 Tablet(s) PO QD 12/29/2010 03/30/2011 Inactive metoprolol tartrate 25 mg Tab RxNorm: 089028 1/2 Tablet(s) PO QD 12/28/2010 12/28/2010 Inactive meclizine 25 mg Tab RxNorm: 9100410 1 Tablet(s) PO QHS 10/15/2010 11/13/2010 Inactive for dizziness Ceftin 500 mg Tab RxNorm: 938337 1 Tablet(s) PO BID 07/02/2010 07/11/2010 Inactive omeprazole 20 mg Cap , Delayed Release RxNorm: 423867 1 Capsule(s) PO BID 07/02/2010 12/28/2010 In active simvastatin 40 mg Tab RxNorm: 856550 1 Tablet(s) PO QD 06/30/2010 05/09/2018 Inactive simvastatin 40 mg Tab RxNorm: 434273 1 Tablet(s) PO QD 06/30/2010 01/25/2011 Inactive simvastatin 40 mg Tab RxNorm: 642069 1 Tablet(s) PO QD 02/25/2010 06/30/2010 Inactive Tessalon Perles 100 mg Cap RxNorm: 521959 1 Capsule(s) PO Q6-8H 01/22/2010 01/28/2010 Inactive cefdinir 300 mg Cap RxNorm: 178359 1 Capsule(s) PO BID 01/22/2010 01/31/2010 Inactive Lexapro 10 mg Tab RxNorm: 669704 1 Tablet(s) PO QD 12/02/2009 01/30/2010 Inactive Cipro 250 mg Tab RxNorm: 176882 1 Tablet(s) PO BID 12/02/2009 12/08/2009 Inactive Wellbutrin XL 150 mg 24 hr Tab RxNorm: 716958 1 Tablet(s) PO QAM 06/09/2009 08/07/2009 Inactive Fish Oil 1,000 mg Cap RxNorm: 1 Capsule(s) PO QD No Start Date Active Tylenol Extra Streng th 500 mg tablet RxNorm: 074054 1/2 Tablet(s) PO as n eeded No Start Date Active nitroglycerin 0.4 mg sublingual tablet RxNorm: 843573 Tablet(s) SL as neede d No Start Date Active Calcium with Vitamin D 600 mg (1,500 mg)-400 unit tablet RxNorm: 924829 1 Tablet(s) PO QD No Start Date Active Multivitamin & Manager Alliance al Formula Tab RxNorm: 1 Tablet(s) PO QD No Start Date Active vitamin B complex ca psule RxNorm: 1 Capsule(s) PO QD No Start Date Active Aspirin 81 mg Tab RxNorm: 346479 1 Tablet(s) PO QD No Start Date Active isosorbide mononitra te ER 30 mg tablet,extended release 24 hr RxNorm: 651883 1 Tablet(s) PO QHS No Start Date Active Vitamin D 1,000 unit Cap RxNorm: 456157 1 Capsule(s) PO QD No Start Date Active Co Q-10 oral RxNorm: 51221 oral No Start Date Active metoprolol tartrate 25 mg Tab RxNorm: 679881 1/2 Tablet(s) PO QD No Start Date 12/27/2010 Inactive Nasonex 50 mcg/actua tion [place] RxNorm: 4886880 2 [place] NASAL No Start Date 07/06/2017 Inactive Vitamin B12 1000mcg Tablet RxNorm: 1 Tablet(s) PO QD No Start Date 11/12/2014 Inactive amlodipine 5 mg Tab RxNorm: 528476 1 Tablet(s) PO QD No Start Date 03/30/2011 Inactive simvastatin 40 mg ta blet RxNorm: 280817 1 Tablet(s) PO QD No Start Date 06/12/2018 Inactive omeprazole 20 mg cap steven,delayed release RxNorm: 572981 1 Capsule(s) PO BID No Start Date 08/08/2012 Inactive omeprazole 40 mg cap steven,delayed release RxNorm: 917261 1 Capsule(s) PO QD No Start Date 06/12/2018 Inactive Nexium 40 mg Cap RxNorm: 629621 1 Capsule(s) PO QD No Start Date 01/21/2010 Inactive Stool Softener 100 m g Tab RxNorm: 8237700 2 Tablet(s) PO BID No Start Date 03/30/2011 Inactive Calcium with Vitamin D 600 mg (1,500 mg)-400 unit Tab RxNorm: 363200 1 Tablet(s) PO QD No Start Date 11/12/2014 Inactive iron 325 mg (65 mg i yajaira) Tab RxNorm: 511839 1 Tablet(s) PO QD No Start Date 11/12/2014 Inactive Flonase 50 mcg/actua tion Nasal [facility] RxNorm: 118370 2 [place] NASAL BID No Start Date 10/16/2013 Inactive fluticasone 50 mcg/a ctuation nasal spray,suspension RxNorm: 8288596 2 [place] NASAL QD to each nostril No Start Date 07/06/2017 Inactive Nasonex 50 mcg/actua tion [place] RxNorm: 9229366 2 [place] NASAL QD No Start Date 07/06/2017 Inactive hydralazine 50 mg ta blet RxNorm: 299393 1 Tablet(s) PO as nee ded for BP over 160/90 No Start Date 11/21/2017 Inactive Vimovo 500 mg-20 mg 12 hr Tab RxNorm: 420248 1 Tablet(s) PO BID No Start Date 02/10/2011 Inactive Tylenol PM 25 mg-500 mg/15 mL Oral Soln RxNorm: 4462827 1 PO QPM No Start Date 11/12/2014 Inactive Iron (Ferrous Sulfat e) Oral RxNorm: Oral No Start D ate 03/30/2011 Inactive Reglan 10 mg Tab RxNorm: 040461 1 Tablet(s) PO TID before meals No Start Date 02/10/2011 Inactive Xanax 1 mg Tab RxNorm: 880953 1/2 Tablet(s) PO QD No Start Date 11/21/2017 Inactive amlodipine 10 mg tablet RxNorm: 087982 1 Tablet(s) PO QD No Start Date 09/23/2013 Inactive Iron (dried) Oral RxNorm: Oral No Start Date 03/30/2011 Inactive metoprolol tartrate 50 mg tablet RxNorm: 752684 1 Tablet(s) PO BID No Start Date 02/13/2018 Inactive Xanax 0.25 mg tablet RxNorm: 401966 1 Tablet(s) PO BID No Start Date 01/02/2018 Inactive lancets RxNorm: Miscellaneous check blood sugar at least once daily No Start Date 04/03/2012 Inactive simvastatin 40 mg Tab RxNorm: 893601 1 Tablet(s) PO QD No Start Date 02/24/2010 Inactive isosorbide mononitra te ER 30 mg tablet,extended release 24 hr RxNorm: 884835 1 Tablet(s) PO QHS No Start Date 08/13/2018 Inactive amlodipine 2.5 mg ta blet RxNorm: 765872 1 Tablet(s) PO QD No Start Date 09/23/2013 Inactive sucralfate 1 gram ta blet RxNorm: 945145 1 Tablet(s) PO QID No Start Date 05/09/2018 Inactive Fish Oil Oral RxNorm: Oral No Start Date 03/31/2011 Inactive Multiple Vitamin Oral RxNorm: Oral No Start Date 03/31/2011 Inactive metoprolol tartrate 25 mg tablet RxNorm: 517493 1/2 Tablet(s) PO QD No Start Date 06/13/2016 Inactive metoprolol tartrate 50 mg tablet RxNorm: 518257 1/2 Tablet(s) PO BID No Start Date 05/09/2018 Inactive Flonase Allergy Reli ef 50 mcg/actuation nasal spray,suspension RxNorm: 1945753 2 [place] NASAL QHS No Start Date 11/06/2018 Inactive [...] ICD-9: 300.00 01/10/2018 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 [...] in spasming follow up 01/10/2018 4 [place] follow up 12/06/2017 follow up 11/22/2017 high [...] Item Item Code Result Date GFR CALC 2172605 GFR Non Afr Amr 48 mL/min 08/14/2018 GFR CALC 8731310 GFR Afr Amr 59 mL/min 08/14/2018 THYROID STIMULATING HORMONE 48649 TSH 1.936 uIU/mL 201 9 COMPREHENSIVE METABOLIC 28532 AST 18 U/L 08/14/2018 COMPREHENSIVE METABOLIC 83062 ALT 11 U/L 08/14/2018 COMPREHENSIVE METABOLIC 44767 BUN 18 mg/dL 08/14/2018 COMPREHENSIVE METABOLIC 97043 ALBUMIN 4.2 g/dL 08/14/2018 COMPREHENSIVE METABOLIC 89519 CHLORIDE 109 mmol/L 08/14/2018 COMPREHENSIVE METABOLIC 30988 Bili Total 0.4 mg/dL 08/14/2018 COMPREHENSIVE METABOLIC 52540 ALK PHOS 64 U/L 08/14/2018 COMPREHENSIVE METABOLIC 96262 SODIUM 142 mmol/L 08/14/2018 COMPREHENSIVE METABOLIC 69688 CREATININE 1.09 mg/dL 08/14/2018 COMPREHENSIVE METABOLIC 76809 CALCIUM 9.3 mg/dL 08/14/2018 COMPREHENSIVE METABOLIC 63371 POTASSIUM 4.7 mmol/L 08/14/2018 COMPREHENSIVE METABOLIC 31440 Total Protein 6.3 g/dL 08/14/2018 COMPREHENSIVE METABOLIC 42595 Glucose 84 mg/dL 08/14/2018 COMPREHENSIVE METABOLIC 17249 Bicarbonate 25 mmol/L 08/14/2018 COMPREHENSIVE METABOLIC 70614 AGAP 8 mmol/L 08/14/2018 COMPLETE BLOOD COUNT 0235651 WBC 7.8 10e9/L 08/14/2018 COMPLETE BLOOD COUNT 7430147 RBC 4.04 10e12/L 9 COMPLETE BLOOD COUNT 2084455 HEMOGLOBIN 12.2 g/dL 08/14/2018 COMPLETE BLOOD COUNT 8157716 HEMATOCRIT 38.6 % 08/14/2018 COMPLETE BLOOD COUNT 4440326 MCV 95.5 fL 08/14/2018 COMPLETE BLOOD COUNT 6321230 MCH 30.2 pg 08/14/2018 COMPLETE BLOOD COUNT 9155218 MCHC 31.6 g/dL 08/14/2018 COMPLETE BLOOD COUNT [id number] PLATELET COUNT 215 10e9/L 08/14/2018 COMPLETE BLOOD COUNT 0197984 Mean Plt Volume 11.2 fL 08/14/2018 COMPLETE BLOOD COUNT 7576485 Neut Auto 45.7 % 08/14/2018 COMPLETE BLOOD COUNT 1084673 Lymph Auto 42.1 % 08/14/2018 COMPLETE BLOOD COUNT [id number] [place] Auto 9.2 % 08/14/2018 COMPLETE BLOOD COUNT 1340971 RDW 13.4 % 08/14/2018 COMPLETE BLOOD COUNT 3314301 Eos Auto 2.7 % 08/14/2018 COMPLETE BLOOD COUNT 0078671 Baso Auto 0.3 % 08/14/2018 COMPLETE BLOOD COUNT 8814711 Neutrophil Abs 3.56 10e9/L 08/14/2018 COMPLETE BLOOD COUNT 6579135 Lymphocyte Abs 3.28 10e9/L 08/14/2018 COMPLETE BLOOD COUNT [id number] Monocyte Abs 0.72 10e9/L 08/14/2018 COMPLETE BLOOD COUNT 2669872 Eosinophil Abs 0.21 10e9/L 08/14/2018 COMPLETE BLOOD COUNT 4367411 RDW-SD 44.9 fL 08/14/2018 COMPLETE BLOOD COUNT 0619960 Basophil Abs 0.02 10e9/L 08/14/2018 COMPLETE BLOOD COUNT 1549970 WBC 5.2 10e9/L 11/30/2017 COMPLETE BLOOD COUNT 4122067 RBC 4.21 10e12/L 8 COMPLETE BLOOD COUNT 3794649 HEMOGLOBIN 12.8 g/dL 11/30/2017 COMPLETE BLOOD COUNT 3194367 HEMATOCRIT 39.0 % 11/30/2017 COMPLETE BLOOD COUNT 1558763 MCV 92.6 fL 11/30/2017 COMPLETE BLOOD COUNT 2157946 MCH 30.4 pg 11/30/2017 COMPLETE BLOOD COUNT 3742120 MCHC 32.8 g/dL 11/30/2017 COMPLETE BLOOD COUNT 4594485 PLATELET COUNT 202 10e9/L 11/30/2017 COMPLETE BLOOD COUNT 6494753 Mean Plt Volume 10.7 fL 11/30/2017 COMPLETE BLOOD COUNT 7534494 Neut Auto 40.9 % 11/30/2017 COMPLETE BLOOD COUNT 8141423 Lymph Auto 46.3 % 11/30/2017 COMPLETE BLOOD COUNT 3500874 [place] Auto 9.3 % 11/30/2017 COMPLETE BLOOD COUNT 4505777 RDW 13.7 % 11/30/2017 COMPLETE BLOOD COUNT 5082726 Eos Auto 2.9 % 11/30/2017 COMPLETE BLOOD COUNT 0303287 Baso Auto 0.6 % 11/30/2017 COMPLETE BLOOD COUNT 4288689 Neutrophil Abs 2.13 10e9/L 11/30/2017 COMPLETE BLOOD COUNT [id number] Lymphocyte Abs 2.41 10e9/L 11/30/2017 COMPLETE BLOOD COUNT 5044062 Monocyte Abs 0.48 10e9/L 11/30/2017 COMPLETE BLOOD COUNT 3391193 Eosinophil Abs 0.15 10e9/L 11/30/2017 COMPLETE BLOOD COUNT [id number] RDW-SD 45.2 fL 11/30/2017 COMPLETE BLOOD COUNT [id number] Basophil Abs 0.03 10e9/L 11/30/2017 [place] [address] Glucose 118 mg/dL 11/30/2017 [place] [address] CREATININE 1.01 mg/dL 11/30/2017 [place] [address] BUN 14 mg/dL 11/30/2017 [place] [address] SODIUM 141 mmol/L 11/30/2017 [place] [address] POTASSIUM 4.0 mmol/L 11/30/2017 [place] [address] CHLORIDE 108 mmol/L 11/30/2017 [place] [address] Bicarbonate 25 mmol/L 11/30/2017 [place] [address] AGAP 8 mmol/L 11/30/2017 [place] [address] CALCIUM 9.6 mg/dL 11/30/2017 FREE T4 59476 T4 Free 1.23 ng/dL 11/30/2017 GFR CALC 2358814 GFR Non Afr Amr 53 mL/min 11/30/2017 GFR CALC 4318370 GFR Afr Amr >60 mL/min 11/30/2017 THYROID STIMULATING HORMONE 69966 TSH 2.124 uIU/mL 8 [facility] 99314 Choles terol 152 mg/dL 09/28/2017 LIP[facility] GROUP 97294 Trigly ceride 151 mg/dL 09/28/2017 [facility] 53733 HDL CH OLESTEROL 47 mg/dL 09/28/2017 [facility] 62970 Chol/H DL Ratio 3.23 ratio 09/28/2017 LIPID GROUP 69211 NON-HD L Chol 105 mg/dL 09/28/2017 LIP[facility] GROUP 03728 LDL Ch olesterol 75 mg/dL 09/28/2017 ASSAY OF TROPONIN QUANT 74165 Troponin-I <0.30 ng/mL 09/27/2017 COMPREHENSIVE METABOLIC 11976 AST 20 U/L 09/27/2017 COMPREHENSIVE METABOLIC 55129 ALT 14 U/L 09/27/2017 COMPREHENSIVE METABOLIC 10138 BUN 19 mg/dL 09/27/2017 COMPREHENSIVE METABOLIC 00213 ALBUMIN 4.2 g/dL 09/27/2017 COMPREHENSIVE METABOLIC 43563 CHLORIDE 102 mmol/L 09/27/2017 COMPREHENSIVE METABOLIC 54911 Bili Total 0.4 mg/dL 09/27/2017 COMPREHENSIVE METABOLIC 88224 ALK PHOS 66 U/L 09/27/2017 COMPREHENSIVE METABOLIC 02773 SODIUM 135 mmol/L 09/27/2017 COMPREHENSIVE METABOLIC 76633 CREATININE 1.01 mg/dL 09/27/2017 COMPREHENSIVE METABOLIC 55587 CALCIUM 9.3 mg/dL 09/27/2017 COMPREHENSIVE METABOLIC 81472 POTASSIUM 4.8 mmol/L 09/27/2017 COMPREHENSIVE METABOLIC 07623 Total Protein 7.0 g/dL 09/27/2017 COMPREHENSIVE METABOLIC 84838 Glucose 91 mg/dL 09/27/2017 COMPREHENSIVE METABOLIC 69369 Bicarbonate 23 mmol/L 09/27/2017 COMPREHENSIVE METABOLIC 28134 AGAP 10 mmol/L 09/27/2017 COMPLETE BLOOD COUNT 5650754 WBC 7.5 10e9/L 09/27/2017 COMPLETE BLOOD COUNT 5588350 RBC 4.13 10e12/L 8 COMPLETE BLOOD COUNT 3994510 HEMOGLOBIN 12.6 g/dL 09/27/2017 COMPLETE BLOOD COUNT 1753002 HEMATOCRIT 38.4 % 09/27/2017 COMPLETE BLOOD COUNT 3142872 MCV 93.0 fL 09/27/2017 COMPLETE BLOOD COUNT 1330019 MCH 30.5 pg 09/27/2017 COMPLETE BLOOD COUNT 3179881 MCHC 32.8 g/dL 09/27/2017 COMPLETE BLOOD COUNT 1416837 PLATELET COUNT 204 10e9/L 09/27/2017 COMPLETE BLOOD COUNT 5814193 Mean Plt Volume 10.9 fL 09/27/2017 COMPLETE BLOOD COUNT 8353398 Neut Auto 43.1 % 09/27/2017 COMPLETE BLOOD COUNT 9145021 Lymph Auto 45.0 % 09/27/2017 COMPLETE BLOOD COUNT 6919084 [place] Auto 9.2 % 09/27/2017 COMPLETE BLOOD COUNT 9106816 RDW 13.4 % 09/27/2017 COMPLETE BLOOD COUNT 6852838 Eos Auto 2.3 % 09/27/2017 COMPLETE BLOOD COUNT 4734202 Baso Auto 0.4 % 09/27/2017 COMPLETE BLOOD COUNT 8189021 Neutrophil Abs 3.23 10e9/L 09/27/2017 COMPLETE BLOOD COUNT 5298174 Lymphocyte Abs 3.38 10e9/L 09/27/2017 COMPLETE BLOOD COUNT 3079980 Monocyte Abs 0.69 10e9/L 09/27/2017 COMPLETE BLOOD COUNT 6130196 Eosinophil Abs 0.17 10e9/L 09/27/2017 COMPLETE BLOOD COUNT 6399787 RDW-SD 44.4 fL 09/27/2017 COMPLETE BLOOD COUNT 2519783 Basophil Abs 0.03 10e9/L 09/27/2017 GFR CALC 2079319 GFR Non Afr Amr 53 mL/min 09/27/2017 GFR CALC 8148081 GFR Afr Amr >60 mL/min 09/27/2017 GLYCOSYLATED HEMOGLOBIN TEST 46807 Hgb A1c 62463-0 5.4 % 09/27/2017 MEAN GLUC Calc M steven Gluc 108 mg/dL 09/27/2017 MEAN GLUC Calc M steven Gluc 114 mg/dL 11/01/2016 LIPID GROUP 25734 Choles terol 146 mg/dL 11/01/2016 LIP[facility] GROUP 21826 Trigly ceride 119 mg/dL 11/01/2016 LIP[facility] GROUP 94339 HDL CH OLESTEROL 47 mg/dL 11/01/2016 LIP[facility] GROUP 77042 Chol/H DL Ratio 3.11 ratio 11/01/2016 LIPID GROUP 30026 NON-HD L Chol 99 mg/dL 11/01/2016 LIPID GROUP 48209 LDL Ch olesterol 75 mg/dL 11/01/2016 GLYCOSYLATED HEMOGLOBIN TEST 14440 Hgb A1c 92273-3 5.6 % 11/01/2016 COMPREHENSIVE METABOLIC 05838 AST 22 U/L 11/01/2016 COMPREHENSIVE METABOLIC 22458 ALT 12 U/L 11/01/2016 COMPREHENSIVE METABOLIC 06593 BUN 17 mg/dL 11/01/2016 COMPREHENSIVE METABOLIC 09944 ALBUMIN 4.0 g/dL 11/01/2016 COMPREHENSIVE METABOLIC 09751 CHLORIDE 110 mmol/L 11/01/2016 COMPREHENSIVE METABOLIC 44591 Bili Total 0.4 mg/dL 11/01/2016 COMPREHENSIVE METABOLIC 29318 ALK PHOS 63 U/L 11/01/2016 COMPREHENSIVE METABOLIC 21555 SODIUM 140 mmol/L 11/01/2016 COMPREHENSIVE METABOLIC 21010 CREATININE 1.05 mg/dL 11/01/2016 COMPREHENSIVE METABOLIC 59082 CALCIUM 9.2 mg/dL 11/01/2016 COMPREHENSIVE METABOLIC 32255 POTASSIUM 4.2 mmol/L 11/01/2016 COMPREHENSIVE METABOLIC 67440 Total Protein 6.2 g/dL 11/01/2016 COMPREHENSIVE METABOLIC 88482 Glucose 87 mg/dL 11/01/2016 COMPREHENSIVE METABOLIC 63213 Bicarbonate 24 mmol/L 11/01/2016 COMPREHENSIVE METABOLIC 17018 AGAP 6 mmol/L 11/01/2016 GFR CALC 1397338 GFR Non Afr Amr 51 mL/min 11/01/2016 GFR CALC 8991516 GFR Afr Amr >60 mL/min 11/01/2016 COMPLETE BLOOD COUNT 5872695 WBC 6.7 10e9/L 11/01/2016 COMPLETE BLOOD COUNT 7090376 RBC 4.04 10e12/L 7 COMPLETE BLOOD COUNT 6411044 HEMOGLOBIN 12.1 g/dL 11/01/2016 COMPLETE BLOOD COUNT 5704585 HEMATOCRIT 38.0 % 11/01/2016 COMPLETE BLOOD COUNT 6085809 MCV 94.1 fL 11/01/2016 COMPLETE BLOOD COUNT 0883883 MCH 30.0 pg 11/01/2016 COMPLETE BLOOD COUNT 8435945 MCHC 31.8 g/dL 11/01/2016 COMPLETE BLOOD COUNT 1371210 PLATELET COUNT 206 10e9/L 11/01/2016 COMPLETE BLOOD COUNT 0128604 Mean Plt Volume 11.3 fL 11/01/2016 COMPLETE BLOOD COUNT 3129040 Neut Auto 35.8 % 11/01/2016 COMPLETE BLOOD COUNT 1339552 Lymph Auto 51.6 % 11/01/2016 COMPLETE BLOOD COUNT 0120735 [place] Auto 8.8 % 11/01/2016 COMPLETE BLOOD COUNT 1284450 RDW 13.5 % 11/01/2016 COMPLETE BLOOD COUNT 1263640 Eos Auto 3.4 % 11/01/2016 COMPLETE BLOOD COUNT 1231420 Baso Auto 0.4 % 11/01/2016 COMPLETE BLOOD COUNT 0551593 Neutrophil Abs 2.40 10e9/L 11/01/2016 COMPLETE BLOOD COUNT 6085935 Lymphocyte Abs 3.46 10e9/L 11/01/2016 COMPLETE BLOOD COUNT 5849549 Monocyte Abs 0.59 10e9/L 11/01/2016 COMPLETE BLOOD COUNT 1500175 Eosinophil Abs 0.23 10e9/L 11/01/2016 COMPLETE BLOOD COUNT 4373552 RDW-SD 45.3 fL 11/01/2016 COMPLETE BLOOD COUNT 4141344 Basophil Abs 0.03 10e9/L 11/01/2016 THYROID STIMULATING HORMONE 60301 TSH 1.981 uIU/mL 7 COMPLETE BLOOD COUNT 6029176 WBC 6.0 10e9/L 05/13/2016 COMPLETE BLOOD COUNT 8083421 RBC 4.29 10e12/L 7 COMPLETE BLOOD COUNT 8635531 HEMOGLOBIN 12.9 g/dL 05/13/2016 COMPLETE BLOOD COUNT [id number] HEMATOCRIT 38.4 % 05/13/2016 COMPLETE BLOOD COUNT 7720830 MCV 89.5 fL 05/13/2016 COMPLETE BLOOD COUNT 6929215 MCH 30.1 pg 05/13/2016 COMPLETE BLOOD COUNT 9125522 MCHC 33.6 g/dL 05/13/2016 COMPLETE BLOOD COUNT 8055364 PLATELET COUNT 181 10e9/L 05/13/2016 COMPLETE BLOOD COUNT 4290392 Mean Plt Volume 11.7 fL 05/13/2016 COMPLETE BLOOD COUNT 9662242 Neut Auto 36.9 % 05/13/2016 COMPLETE BLOOD COUNT 1630105 Lymph Auto 50.4 % 05/13/2016 COMPLETE BLOOD COUNT 0102526 [place] Auto 9.0 % 05/13/2016 COMPLETE BLOOD COUNT 6932971 RDW 13.7 % 05/13/2016 COMPLETE BLOOD COUNT 5636416 Eos Auto 3.4 % 05/13/2016 COMPLETE BLOOD COUNT 3027428 Baso Auto 0.3 % 05/13/2016 COMPLETE BLOOD COUNT 3522595 Neutrophil Abs 2.21 10e9/L 05/13/2016 COMPLETE BLOOD COUNT 7813433 Lymphocyte Abs 3.02 10e9/L 05/13/2016 COMPLETE BLOOD COUNT 0699295 Monocyte Abs 0.54 10e9/L 05/13/2016 COMPLETE BLOOD COUNT 7512705 Eosinophil Abs 0.20 10e9/L 05/13/2016 COMPLETE BLOOD COUNT 5607865 RDW-SD 44.0 fL 05/13/2016 COMPLETE BLOOD COUNT 1748749 Basophil Abs 0.02 10e9/L 05/13/2016 GLYCOSYLATED HEMOGLOBIN TEST 75418 Hgb A1c 85273-2 5.4 % 05/13/2016 THYROID STIMULATING HORMONE 83571 TSH 2.200 uIU/mL 7 GFR CALC 4758202 GFR Non Afr Amr 50 mL/min 05/13/2016 GFR CALC 9106058 GFR Afr Amr >60 mL/min 05/13/2016 MEAN GLUC 6315243 Calc M steven Gluc 108 mg/dL 05/13/2016 COMPREHENSIVE METABOLIC 43675 AST 18 U/L 05/13/2016 COMPREHENSIVE METABOLIC 76349 ALT 10 U/L 05/13/2016 COMPREHENSIVE METABOLIC 24388 BUN 20 mg/dL 05/13/2016 COMPREHENSIVE METABOLIC 54880 ALBUMIN 4.1 g/dL 05/13/2016 COMPREHENSIVE METABOLIC 50330 CHLORIDE 109 mmol/L 05/13/2016 COMPREHENSIVE METABOLIC 37713 Bili Total 0.6 mg/dL 05/13/2016 COMPREHENSIVE METABOLIC 65282 ALK PHOS 64 U/L 05/13/2016 COMPREHENSIVE METABOLIC 06818 SODIUM 141 mmol/L 05/13/2016 COMPREHENSIVE METABOLIC 23344 CREATININE 1.06 mg/dL 05/13/2016 COMPREHENSIVE METABOLIC 57266 CALCIUM 9.9 mg/dL 05/13/2016 COMPREHENSIVE METABOLIC 73619 POTASSIUM 4.2 mmol/L 05/13/2016 COMPREHENSIVE METABOLIC 17888 Total Protein 6.3 g/dL 05/13/2016 COMPREHENSIVE METABOLIC 21330 Glucose 99 mg/dL 05/13/2016 COMPREHENSIVE METABOLIC 05969 Bicarbonate 21 mmol/L 05/13/2016 COMPREHENSIVE METABOLIC 13666 AGAP 11 mmol/L 05/13/2016 LIPID GROUP 74772 Choles terol 169 mg/dL 11/25/2015 LIPID GROUP 08909 Trigly ceride 165 mg/dL 11/25/2015 LIPID GROUP 11819 HDL CH OLESTEROL 43 mg/dL 11/25/2015 LIPID GROUP 68564 Chol/H DL Ratio 3.93 ratio 11/25/2015 LIPID GROUP 13944 NON-HD L Chol 126 mg/dL 11/25/2015 LIPID GROUP 88106 LDL Ch olesterol 93 mg/dL 11/25/2015 COMPREHENSIVE METABOLIC 20145 AST 18 U/L 11/25/2015 COMPREHENSIVE METABOLIC 73617 ALT 10 U/L 11/25/2015 COMPREHENSIVE METABOLIC 89389 BUN 20 mg/dL 11/25/2015 COMPREHENSIVE METABOLIC 90075 ALBUMIN 3.9 g/dL 11/25/2015 COMPREHENSIVE METABOLIC 58575 CHLORIDE 110 mmol/L 11/25/2015 COMPREHENSIVE METABOLIC 77580 Bili Total 0.5 mg/dL 11/25/2015 COMPREHENSIVE METABOLIC 08411 ALK PHOS 72 U/L 11/25/2015 COMPREHENSIVE METABOLIC 82191 SODIUM 141 mmol/L 11/25/2015 COMPREHENSIVE METABOLIC 29540 CREATININE 1.12 mg/dL 11/25/2015 COMPREHENSIVE METABOLIC 77326 CALCIUM 9.7 mg/dL 11/25/2015 COMPREHENSIVE METABOLIC 91595 POTASSIUM 4.4 mmol/L 11/25/2015 COMPREHENSIVE METABOLIC 16619 Total Protein 6.2 g/dL 11/25/2015 COMPREHENSIVE METABOLIC 66107 Glucose 90 mg/dL 11/25/2015 COMPREHENSIVE METABOLIC 78130 Bicarbonate 23 mmol/L 11/25/2015 COMPREHENSIVE METABOLIC 26007 AGAP 8 mmol/L 11/25/2015 GFR CALC 9178557 GFR Non Afr Amr 47 mL/min 11/25/2015 GFR CALC 1918178 GFR Afr Amr 57 mL/min 11/25/2015 GLYCOSYLATED HEMOGLOBIN TEST 74162 Hgb A1c 50094-0 5.5 % 11/25/2015 THYROID STIMULATING HORMONE 28265 TSH 2.537 uIU/mL 6 FREE T4 07965 T4 Free 1.36 ng/dL 11/25/2015 COMPLETE BLOOD COUNT 8572404 WBC 6.8 10e9/L 11/25/2015 COMPLETE BLOOD COUNT 7642551 RBC 4.20 10e12/L 6 COMPLETE BLOOD COUNT 1526895 HEMOGLOBIN 12.5 g/dL 11/25/2015 COMPLETE BLOOD COUNT 5179609 HEMATOCRIT 38.0 % 11/25/2015 COMPLETE BLOOD COUNT 9660133 MCV 90.5 fL 11/25/2015 COMPLETE BLOOD COUNT 1688738 MCH 29.8 pg 11/25/2015 COMPLETE BLOOD COUNT 0427685 MCHC 32.9 g/dL 11/25/2015 COMPLETE BLOOD COUNT 7494943 PLATELET COUNT 197 10e9/L 11/25/2015 COMPLETE BLOOD COUNT 7076165 Mean Plt Volume 11.7 fL 11/25/2015 COMPLETE BLOOD COUNT 3784272 Neut Auto 41.3 % 11/25/2015 COMPLETE BLOOD COUNT 1656052 Lymph Auto 47.1 % 11/25/2015 COMPLETE BLOOD COUNT 2779668 [place] Auto 7.8 % 11/25/2015 COMPLETE BLOOD COUNT 3867952 RDW 13.8 % 11/25/2015 COMPLETE BLOOD COUNT 6261652 Eos Auto 3.4 % 11/25/2015 COMPLETE BLOOD COUNT 6305107 Baso Auto 0.4 % 11/25/2015 COMPLETE BLOOD COUNT 2418564 Neutrophil Abs 2.81 10e9/L 11/25/2015 COMPLETE BLOOD COUNT 2928074 Lymphocyte Abs 3.20 10e9/L 11/25/2015 COMPLETE BLOOD COUNT 5563029 Monocyte Abs 0.53 10e9/L 11/25/2015 COMPLETE BLOOD COUNT 5340689 Eosinophil Abs 0.23 10e9/L 11/25/2015 COMPLETE BLOOD COUNT 6158337 RDW-SD 44.4 fL 11/25/2015 COMPLETE BLOOD COUNT 1631241 Basophil Abs 0.03 10e9/L 11/25/2015 MEAN GLUC 4056094 Calc M steven Gluc 111 mg/dL 11/25/2015 [place] [address] Glucose 89 MG/DL 02/19/2015 [place] [address] CREATININE 1.12 MG/DL 02/19/2015 [place] [address] BUN 20 MG/DL 02/19/2015 [place] [address] SODIUM 139 MMOL/L 02/19/2015 [place] [address] POTASSIUM 4.6 MMOL/L 02/19/2015 [place] [address] CHLORIDE 108 MMOL/L 02/19/2015 [place] [address] BICARB 26 MMOL/L 02/19/2015 [place] [address] ANION GAP 5 MEQ/L 02/19/2015 [place] [address] CALCIUM 10.0 MG/DL 02/19/2015 GFR CALC 9257768 GFR AA 57.0L ML/MIN 02/19/2015 GFR CALC 9817100 GFR NON -AA 47.0L ML/MIN 5 THYROID STIMULATING HORMONE 77527 TSH 2.378 uIU/ML 5 COMPLETE BLOOD COUNT 7096814 WBC 6.4 10e9/L 11/14/2014 COMPLETE BLOOD COUNT 6398332 RBC 3.99 10e12/L 5 COMPLETE BLOOD COUNT 1812257 HGB 11.9 g/dL 11/14/2014 COMPLETE BLOOD COUNT 5720927 HCT DET 36.9 % 11/14/2014 COMPLETE BLOOD COUNT 8024880 MCV 92.5 fL 11/14/2014 COMPLETE BLOOD COUNT 3381573 MCH 29.8 pg 11/14/2014 COMPLETE BLOOD COUNT 5811045 MCHC 32.2 g/dL 11/14/2014 COMPLETE BLOOD COUNT 0234067 PLT 172 10e9/L 11/14/2014 COMPLETE BLOOD COUNT 4470083 MPV 11.7 fL 11/14/2014 COMPLETE BLOOD COUNT 7418191 [place] % 40.4 % 11/14/2014 COMPLETE BLOOD COUNT 8680487 LY % 48.0 % 11/14/2014 COMPLETE BLOOD COUNT 6186554 MON % 8.3 % 11/14/2014 COMPLETE BLOOD COUNT 0484654 EOS % 2.8 % 11/14/2014 COMPLETE BLOOD COUNT 5814831 BASO % 0.5 % 11/14/2014 COMPLETE BLOOD COUNT 8546277 RDW 13.6 % 11/14/2014 COMPLETE BLOOD COUNT 6273451 ABS CINTHYA 2.59 10e9/L 11/14/2014 COMPLETE BLOOD COUNT 0011257 ABS LYMPH 3.07 10e9/L 11/14/2014 COMPLETE BLOOD COUNT 1653782 ABS MONO 0.53 10e9/L 11/14/2014 COMPLETE BLOOD COUNT 5302564 ABS EOS 0.18 10e9/L 11/14/2014 COMPLETE BLOOD COUNT 5432917 ABS BASO 0.03 10e9/L 11/14/2014 COMPLETE BLOOD COUNT 0341601 RDW-SD 44.9 fL 11/14/2014 LIPID GROUP [address] 42 MG/DL 11/14/2014 LIPID GROUP 17399 TRIG 177 MG/DL 11/14/2014 LIPID GROUP 26404 TEST L DL 72 MG/DL 11/14/2014 LIPID GROUP 96678 CHOL 149 MG/DL 11/14/2014 LIPID GROUP 44605 RCHOL/ HDL 3.55 RATIO 11/14/2014 LIPID GROUP 64615 NON-HD L CH 107 MG/DL 11/14/2014 GLYCOSYLATED HEMOGLOBIN TEST 43975 A1C HPLC 56159-0 5.5 % 11/14/2014 FREE T4 13891 FREE T4 1.39 NG/DL 11/14/2014 GFR CALC 2259768 GFR AA 55.0L ML/MIN 11/14/2014 GFR CALC 2606400 GFR NON -AA 46.0L ML/MIN 5 COMPREHENSIVE METABOLIC 50928 AST 17 U/L 11/14/2014 COMPREHENSIVE METABOLIC 28565 ALT 10 IU/L 11/14/2014 COMPREHENSIVE METABOLIC 22060 BUN 20 MG/DL 11/14/2014 COMPREHENSIVE METABOLIC 14404 ALBUMIN 3.9 GM/DL 11/14/2014 COMPREHENSIVE METABOLIC 76313 CHLORIDE 111 MMOL/L 11/14/2014 COMPREHENSIVE METABOLIC 92422 BILI TOT 0.4 MG/DL 11/14/2014 COMPREHENSIVE METABOLIC 22254 ALK PHOS 70 U/L 11/14/2014 COMPREHENSIVE METABOLIC 41947 SODIUM 142 MMOL/L 11/14/2014 COMPREHENSIVE METABOLIC 42823 CREATININE 1.16 MG/DL 11/14/2014 COMPREHENSIVE METABOLIC 37071 CALCIUM 9.4 MG/DL 11/14/2014 COMPREHENSIVE METABOLIC 95721 POTASSIUM 4.6 MMOL/L 11/14/2014 COMPREHENSIVE METABOLIC 95120 PROT TOT 6.2 GM/DL 11/14/2014 COMPREHENSIVE METABOLIC 77166 Glucose 90 MG/DL 11/14/2014 COMPREHENSIVE METABOLIC 01410 BICARB 24 MMOL/L 11/14/2014 COMPREHENSIVE METABOLIC 38572 ANION GAP 7 MEQ/L 11/14/2014 THYROID STIMULATING HORMONE 87735 TSH 2.427 uIU/ML 5 LIPID GROUP [address] 47 MG/DL 05/10/2014 LIPID GROUP 15049 TRIG 145 MG/DL 05/10/2014 LIPID GROUP 11599 TEST L DL 73 MG/DL 05/10/2014 LIPID GROUP 07405 CHOL 149 MG/DL 05/10/2014 LIPID GROUP 80985 RCHOL/ HDL 3.17 RATIO 05/10/2014 LIPID GROUP 12902 NON-HD L CH 102 MG/DL 05/10/2014 COMPREHENSIVE METABOLIC 59476 AST 17 U/L 05/10/2014 COMPREHENSIVE METABOLIC 85780 ALT 9 IU/L 05/10/2014 COMPREHENSIVE METABOLIC 46434 BUN 19 MG/DL 05/10/2014 COMPREHENSIVE METABOLIC 61026 ALBUMIN 4.3 GM/DL 05/10/2014 COMPREHENSIVE METABOLIC 09262 CHLORIDE 108 MMOL/L 05/10/2014 COMPREHENSIVE METABOLIC 11880 BILI TOT 0.5 MG/DL 05/10/2014 COMPREHENSIVE METABOLIC 13931 ALK PHOS 68 U/L 05/10/2014 COMPREHENSIVE METABOLIC 80893 SODIUM 140 MMOL/L 05/10/2014 COMPREHENSIVE METABOLIC 64194 CREATININE 1.08 MG/DL 05/10/2014 COMPREHENSIVE METABOLIC 19163 CALCIUM 9.9 MG/DL 05/10/2014 COMPREHENSIVE METABOLIC 77474 POTASSIUM 4.3 MMOL/L 05/10/2014 COMPREHENSIVE METABOLIC 02110 PROT TOT 7.2 GM/DL 05/10/2014 COMPREHENSIVE METABOLIC 08236 Glucose 94 MG/DL 05/10/2014 COMPREHENSIVE METABOLIC 32364 BICARB 26 MMOL/L 05/10/2014 COMPREHENSIVE METABOLIC 22533 ANION GAP 6 MEQ/L 05/10/2014 GFR CALC 3340853 GFR AA 60.0L ML/MIN 05/10/2014 GFR CALC 7581166 GFR NON -AA 49.0L ML/MIN 5 GLYCOSYLATED HEMOGLOBIN TEST 73607 A1C HPLC 59516-8 5.6 % 05/10/2014 COMPLETE BLOOD COUNT 0573237 WBC 7.2 10e9/L 05/10/2014 COMPLETE BLOOD COUNT 1639300 RBC 4.28 10e12/L 5 COMPLETE BLOOD COUNT 0692098 HGB 12.8 g/dL 05/10/2014 COMPLETE BLOOD COUNT 6036239 HCT DET 39.3 % 05/10/2014 COMPLETE BLOOD COUNT 5870475 MCV 91.8 fL 05/10/2014 COMPLETE BLOOD COUNT 0505559 MCH 29.9 pg 05/10/2014 COMPLETE BLOOD COUNT 0757978 MCHC 32.6 g/dL 05/10/2014 COMPLETE BLOOD COUNT 7269753 PLT 189 10e9/L 05/10/2014 COMPLETE BLOOD COUNT 6014725 MPV 11.2 fL 05/10/2014 COMPLETE BLOOD COUNT 5789406 [place] % 38.0 % 05/10/2014 COMPLETE BLOOD COUNT 8572082 LY % 51.0 % 05/10/2014 COMPLETE BLOOD COUNT 0581671 MON % 7.7 % 05/10/2014 COMPLETE BLOOD COUNT 7930612 EOS % 2.9 % 05/10/2014 COMPLETE BLOOD COUNT 2547786 BASO % 0.4 % 05/10/2014 COMPLETE BLOOD COUNT 1202789 RDW 14.0 % 05/10/2014 COMPLETE BLOOD COUNT 8007155 ABS C[place] 2.74 10e9/L 05/10/2014 COMPLETE BLOOD COUNT 1887482 ABS LYMPH 3.67 10e9/L 05/10/2014 COMPLETE BLOOD COUNT 5038484 ABS MONO 0.55 10e9/L 05/10/2014 COMPLETE BLOOD COUNT 1954372 ABS EOS 0.21 10e9/L 05/10/2014 COMPLETE BLOOD COUNT 7353355 ABS BASO 0.03 10e9/L 05/10/2014 COMPLETE BLOOD COUNT 3994238 RDW-SD 46.1 fL 05/10/2014 FREE T4 03580 FREE T4 1.14 NG/DL 05/10/2014 GLYCOSYLATED HEMOGLOBIN TEST 37265 A1C HPLC 14091-0 5.2 % 03/29/2013 FREE T4 69053 FREE T4 1.40 NG/DL 03/28/2013 GFR CALC 5718480 GFR AA >60 ML/MIN 03/28/2013 GFR CALC 4166287 GFR NON -AA 52.0L ML/MIN 4 COMPREHENSIVE METABOLIC 07589 AST 15 U/L 03/28/2013 COMPREHENSIVE METABOLIC 57524 ALT 9 IU/L 03/28/2013 COMPREHENSIVE METABOLIC 80374 BUN 17 MG/DL 03/28/2013 COMPREHENSIVE METABOLIC 68067 ALBUMIN 4.0 GM/DL 03/28/2013 COMPREHENSIVE METABOLIC 97477 CHLORIDE 112 MMOL/L 03/28/2013 COMPREHENSIVE METABOLIC 35534 BILI TOT 0.5 MG/DL 03/28/2013 COMPREHENSIVE METABOLIC 77729 ALK PHOS 66 U/L 03/28/2013 COMPREHENSIVE METABOLIC 15562 SODIUM 140 MMOL/L 03/28/2013 COMPREHENSIVE METABOLIC 76277 CREATININE 1.03 MG/DL 03/28/2013 COMPREHENSIVE METABOLIC 46817 CALCIUM 9.5 MG/DL 03/28/2013 COMPREHENSIVE METABOLIC 03269 POTASSIUM 4.1 MMOL/L 03/28/2013 COMPREHENSIVE METABOLIC 71525 PROT TOT 6.2 GM/DL 03/28/2013 COMPREHENSIVE METABOLIC 26561 Glucose 102 MG/DL 03/28/2013 COMPREHENSIVE METABOLIC 53902 BICARB 23 MMOL/L 03/28/2013 COMPREHENSIVE METABOLIC 44446 ANION GAP 5 MEQ/L 03/28/2013 THYROID STIMULATING HORMONE 34915 TSH 2.074 uIU/ML 4 VITAMIN B 12 FOLIC ACID 33579|59077 VIT B 12 423 PG/ML 03/28/2013 VITAMIN B 12 FOLIC ACID 88922|80539 FOLIC ACID 19.7 NG/ML 03/28/2013 LIPID GROUP [address] 40 MG/DL 03/28/2013 LIPID GROUP 58835 TRIG 145 MG/DL 03/28/2013 LIPID GROUP 85371 TEST L DL 81 MG/DL 03/28/2013 LIPID GROUP 91921 CHOL 150 MG/DL 03/28/2013 LIPID GROUP 97562 RCHOL/ HDL 3.75 RATIO 03/28/2013 COMPLETE BLOOD COUNT 7856531 WBC 6.0 10e9/L 03/28/2013 COMPLETE BLOOD COUNT 1693803 RBC 4.26 10e12/L 4 COMPLETE BLOOD COUNT 1881800 HGB 12.7 g/dL 03/28/2013 COMPLETE BLOOD COUNT 1035588 HCT DET 38.7 % 03/28/2013 COMPLETE BLOOD COUNT 8894611 MCV 90.8 fL 03/28/2013 COMPLETE BLOOD COUNT 4571440 MCH 29.8 pg 03/28/2013 COMPLETE BLOOD COUNT 8636822 MCHC 32.8 g/dL 03/28/2013 COMPLETE BLOOD COUNT 7708327 PLT 178 10e9/L 03/28/2013 COMPLETE BLOOD COUNT 4456550 MPV 11.7 fL 03/28/2013 COMPLETE BLOOD COUNT 1967189 [place] % 30.5 % 03/28/2013 COMPLETE BLOOD COUNT 0500059 LY % 55.4 % 03/28/2013 COMPLETE BLOOD COUNT 5798191 MON % 9.0 % 03/28/2013 COMPLETE BLOOD COUNT 0368813 EOS % 4.4 % 03/28/2013 COMPLETE BLOOD COUNT 8822014 BASO % 0.7 % 03/28/2013 COMPLETE BLOOD COUNT 3782409 RDW 13.3 % 03/28/2013 COMPLETE BLOOD COUNT 3061792 ABS C[place]TH[place] 1.83 10e9/L 03/28/2013 COMPLETE BLOOD COUNT 2539134 ABS LYMPH 3.32 10e9/L 03/28/2013 COMPLETE BLOOD COUNT 7212043 ABS MONO 0.54 10e9/L 03/28/2013 COMPLETE BLOOD COUNT 1167539 ABS EOS 0.26 10e9/L 03/28/2013 COMPLETE BLOOD COUNT 1806606 ABS BASO 0.04 10e9/L 03/28/2013 COMPLETE BLOOD COUNT 0329127 RDW-SD 43.2 fL 03/28/2013 HEMOGLOBIN A1C (GLYCOSYLATED) 6844111 A1C [facility] 48219-4 5.5 % 02/24/2012 COMPLETE BLOOD COUNT 7276368 WBC 6.0 10e9/L 02/23/2012 COMPLETE BLOOD COUNT 1553694 RBC 4.22 10e12/L 2 COMPLETE BLOOD COUNT 0546377 HGB 12.4 g/dL 02/23/2012 COMPLETE BLOOD COUNT 2625503 HCT DET 38.2 % 02/23/2012 COMPLETE BLOOD COUNT 9522158 MCV 90.5 fL 02/23/2012 COMPLETE BLOOD COUNT 7073486 MCH 29.4 pg 02/23/2012 COMPLETE BLOOD COUNT 2560602 MCHC 32.5 g/dL 02/23/2012 COMPLETE BLOOD COUNT 0531406 PLT 187 10e9/L 02/23/2012 COMPLETE BLOOD COUNT 9399345 MPV 11.5 fL 02/23/2012 COMPLETE BLOOD COUNT 9502129 [place] % 36.4 % 02/23/2012 COMPLETE BLOOD COUNT 9127621 LY % 51.0 % 02/23/2012 COMPLETE BLOOD COUNT 6410073 MON % 8.7 % 02/23/2012 COMPLETE BLOOD COUNT 1253650 EOS % 3.2 % 02/23/2012 COMPLETE BLOOD COUNT 5303627 BASO % 0.7 % 02/23/2012 COMPLETE BLOOD COUNT 9251262 RDW 13.7 % 02/23/2012 COMPLETE BLOOD COUNT 4668354 ABS [place] 2.18 10e9/L 02/23/2012 COMPLETE BLOOD COUNT 4624948 ABS LYMPH 3.06 10e9/L 02/23/2012 COMPLETE BLOOD COUNT 3575720 ABS MONO 0.52 10e9/L 02/23/2012 COMPLETE BLOOD COUNT 0080597 ABS EOS 0.19 10e9/L 02/23/2012 COMPLETE BLOOD COUNT 6342625 ABS BASO 0.04 10e9/L 02/23/2012 COMPLETE BLOOD COUNT 2120454 RDW-SD 44.3 fL 02/23/2012 LIPID GROUP [address] 42 MG/DL 02/23/2012 LIPID GROUP 30685 TRIG 156 MG/DL 02/23/2012 LIPID GROUP 66046 TEST L DL 80 MG/DL 02/23/2012 LIPID GROUP 16427 CHOL 153 MG/DL 02/23/2012 LIPID GROUP 24910 RCHOL/ HDL 3.64 RATIO 02/23/2012 FREE T4 69330 FREE T4 1.22 NG/DL 02/23/2012 COMPREHENSIVE METABOLIC 31751 AST 20 U/L 02/23/2012 COMPREHENSIVE METABOLIC 20864 ALT 11 IU/L 02/23/2012 COMPREHENSIVE METABOLIC 30951 BUN 19 MG/DL 02/23/2012 COMPREHENSIVE METABOLIC 24095 ALBUMIN 4.3 GM/DL 02/23/2012 COMPREHENSIVE METABOLIC 59293 CHLORIDE 109 MMOL/L 02/23/2012 COMPREHENSIVE METABOLIC 63869 BILI TOT 0.6 MG/DL 02/23/2012 COMPREHENSIVE METABOLIC 50119 ALK PHOS 84 U/L 02/23/2012 COMPREHENSIVE METABOLIC 67583 SODIUM 142 MMOL/L 02/23/2012 COMPREHENSIVE METABOLIC 11902 CREATININE 1.09 MG/DL 02/23/2012 COMPREHENSIVE METABOLIC 77464 CALCIUM 9.8 MG/DL 02/23/2012 COMPREHENSIVE METABOLIC 42158 POTASSIUM 4.2 MMOL/L 02/23/2012 COMPREHENSIVE METABOLIC 39891 PROT TOT 6.4 GM/DL 02/23/2012 COMPREHENSIVE METABOLIC 59274 Glucose 89 MG/DL 02/23/2012 COMPREHENSIVE METABOLIC 30445 BICARB 25 MMOL/L 02/23/2012 COMPREHENSIVE METABOLIC 63272 ANION GAP 8 MEQ/L 02/23/2012 GFR CALC 5042960 GFR AA 60.0L ML/MIN 02/23/2012 GFR CALC 5296050 GFR NON -AA 49.0L ML/MIN 2 THYROID STIMULATING HORMONE 08478 TSH 2.450 uIU/ML 2 COMPREHENSIVE METABOLIC 56272 AST 22 U/L 04/01/2011 COMPREHENSIVE METABOLIC 33368 ALT 14 IU/L 04/01/2011 COMPREHENSIVE METABOLIC 27589 BUN 21 MG/DL 04/01/2011 COMPREHENSIVE METABOLIC 69279 ALBUMIN 4.3 GM/DL 04/01/2011 COMPREHENSIVE METABOLIC 02800 CHLORIDE 106 MMOL/L 04/01/2011 COMPREHENSIVE METABOLIC 05511 BILI TOT 0.4 MG/DL 04/01/2011 COMPREHENSIVE METABOLIC 69485 ALK PHOS 80 U/L 04/01/2011 COMPREHENSIVE METABOLIC 32130 SODIUM 141 MMOL/L 04/01/2011 COMPREHENSIVE METABOLIC 28596 CREATININE 1.13 MG/DL 04/01/2011 COMPREHENSIVE METABOLIC 62701 CALCIUM 9.4 MG/DL 04/01/2011 COMPREHENSIVE METABOLIC 09627 POTASSIUM 4.3 MMOL/L 04/01/2011 COMPREHENSIVE METABOLIC 02368 PROT TOT 6.7 GM/DL 04/01/2011 COMPREHENSIVE METABOLIC 46849 Glucose 98 MG/DL 04/01/2011 COMPREHENSIVE METABOLIC 73496 BICARB 25 MMOL/L 04/01/2011 COMPREHENSIVE METABOLIC 48556 ANION GAP 10 MEQ/L 04/01/2011 LIPID GROUP [address] 44 MG/DL 04/01/2011 LIPID GROUP 73047 TRIG 164 MG/DL 04/01/2011 LIPID GROUP 08387 TEST L DL 98 MG/DL 04/01/2011 LIPID GROUP 78676 CHOL 175 MG/DL 04/01/2011 LIPID GROUP 63864 RCHOL/ HDL 3.98 RATIO 04/01/2011 COMPLETE BLOOD COUNT 20885 WBC 6.7 10e9/L 04/01/2011 COMPLETE BLOOD COUNT 33136 RBC 4.36 10e12/L 2 COMPLETE BLOOD COUNT 56522 HGB 12.9 g/dL 04/01/2011 COMPLETE BLOOD COUNT 66527 HCT DET 39.4 % 04/01/2011 COMPLETE BLOOD COUNT 23249 MCV 90.4 fL 04/01/2011 COMPLETE BLOOD COUNT 60346 MCH 29.6 pg 04/01/2011 COMPLETE BLOOD COUNT 66886 MCHC 32.7 g/dL 04/01/2011 COMPLETE BLOOD COUNT 01590 PLT 184 10e9/L 04/01/2011 COMPLETE BLOOD COUNT 36257 MPV 10.9 fL 04/01/2011 COMPLETE BLOOD COUNT 11607 CINTHYA % 41.5 % 04/01/2011 COMPLETE BLOOD COUNT 56508 LY % 45.7 % 04/01/2011 COMPLETE BLOOD COUNT 90055 MON % 9.4 % 04/01/2011 COMPLETE BLOOD COUNT 99625 EOS % 3.0 % 04/01/2011 COMPLETE BLOOD COUNT 90768 BASO % 0.4 % 04/01/2011 COMPLETE BLOOD COUNT 97610 RDW 13.2 % 04/01/2011 COMPLETE BLOOD COUNT 51242 ABS CINTHYA 2.78 10e9/L 04/01/2011 COMPLETE BLOOD COUNT 35737 ABS LYMPH 3.06 10e9/L 04/01/2011 COMPLETE BLOOD COUNT 07482 ABS MONO 0.63 10e9/L 04/01/2011 COMPLETE BLOOD COUNT 08304 ABS EOS 0.20 10e9/L 04/01/2011 COMPLETE BLOOD COUNT 87144 ABS BASO 0.03 10e9/L 04/01/2011 COMPLETE BLOOD COUNT 37679 RDW-SD 42.3 fL 04/01/2011 GFR CALC 3197164 GFR AA 57.0L ML/MIN 04/01/2011 GFR CALC 2142041 GFR NON -AA 47.0L ML/MIN 2 THYROID STIMULATING HORMONE 64850 TSH 2.663 uIU/ML 2 FREE T4 29915 FREE T4 1.15 NG/DL 04/01/2011 THYROID STIMULATING HORMONE 63586 TSH 1.908 uIU/ML 1 COMPLETE BLOOD COUNT 43328 WBC 6.4 10e9/L 07/06/2010 COMPLETE BLOOD COUNT 61081 RBC 3.92 10e12/L 1 COMPLETE BLOOD COUNT 52020 HGB 11.8 g/dL 07/06/2010 COMPLETE BLOOD COUNT 67576 HCT DET 36.0 % 07/06/2010 COMPLETE BLOOD COUNT 77203 MCV 91.8 fL 07/06/2010 COMPLETE BLOOD COUNT 28801 MCH 30.1 pg 07/06/2010 COMPLETE BLOOD COUNT 81156 MCHC 32.8 g/dL 07/06/2010 COMPLETE BLOOD COUNT 88415 PLT 176 10e9/L 07/06/2010 COMPLETE BLOOD COUNT 13919 MPV 11.4 fL 07/06/2010 COMPLETE BLOOD COUNT 09746 CINTHYA % 50.4 % 07/06/2010 COMPLETE BLOOD COUNT 59749 LY % 35.5 % 07/06/2010 COMPLETE BLOOD COUNT 72255 MON % 10.2 % 07/06/2010 COMPLETE BLOOD COUNT 03665 EOS % 3.3 % 07/06/2010 COMPLETE BLOOD COUNT 57854 BASO % 0.6 % 07/06/2010 COMPLETE BLOOD COUNT 21793 RDW 13.7 % 07/06/2010 COMPLETE BLOOD COUNT 21814 ABS CINTHYA 3.23 10e9/L 07/06/2010 COMPLETE BLOOD COUNT 52725 ABS LYMPH 2.27 10e9/L 07/06/2010 COMPLETE BLOOD COUNT 45996 ABS MONO 0.65 10e9/L 07/06/2010 COMPLETE BLOOD COUNT 75134 ABS EOS 0.21 10e9/L 07/06/2010 COMPLETE BLOOD COUNT 33306 ABS BASO 0.04 10e9/L 07/06/2010 COMPLETE BLOOD COUNT 76658 RDW-SD 45.3 fL 07/06/2010 GFR CALC 3454933 GFR AA >60 ML/MIN 07/06/2010 GFR CALC [id number] GFR NON -AA 53.0L ML/MIN 1 FREE T4 47300 FREE T4 1.20 NG/DL 07/06/2010 COMPREHENSIVE METABOLIC 12876 AST 17 U/L 07/06/2010 COMPREHENSIVE METABOLIC 60526 ALT 9 IU/L 07/06/2010 COMPREHENSIVE METABOLIC 39612 BUN 16 MG/DL 07/06/2010 COMPREHENSIVE METABOLIC 49531 ALBUMIN 4.0 GM/DL 07/06/2010 COMPREHENSIVE METABOLIC 17985 CHLORIDE 108 MMOL/L 07/06/2010 COMPREHENSIVE METABOLIC 87387 BILI TOT 0.5 MG/DL 07/06/2010 COMPREHENSIVE METABOLIC 25507 ALK PHOS 76 U/L 07/06/2010 COMPREHENSIVE METABOLIC 00839 SODIUM 139 MMOL/L 07/06/2010 COMPREHENSIVE METABOLIC 83922 CREATININE 1.02 MG/DL 07/06/2010 COMPREHENSIVE METABOLIC 60669 CALCIUM 9.2 MG/DL 07/06/2010 COMPREHENSIVE METABOLIC 63233 POTASSIUM 4.5 MMOL/L 07/06/2010 COMPREHENSIVE METABOLIC 31404 PROT TOT 6.1 GM/DL 07/06/2010 COMPREHENSIVE METABOLIC 73707 Glucose 93 MG/DL 07/06/2010 COMPREHENSIVE METABOLIC 54874 BICARB 26 MMOL/L 07/06/2010 COMPREHENSIVE METABOLIC 82795 ANION GAP 5 MEQ/L 07/06/2010 LIPID GROUP [address] 46 MG/DL 07/06/2010 LIPID GROUP 28003 TRIG 102 MG/DL 07/06/2010 LIPID GROUP 05328 TEST L DL 88 MG/DL 07/06/2010 LIPID GROUP 32235 CHOL 154 MG/DL 07/06/2010 LIPID GROUP 05959 RCHOL/ HDL 3.35 RATIO 07/06/2010 Review of [...] rate 11/07/2018 None Full Exam - General Constitutional [...] General Neurologic mental status Overall: alert 201 8 None Full Exam - General Psychiatric [...] Procedures Procedure Codes Date ROUTINE VENIPUNCTURE CPT-4: 81724 08/14/2018 ASSAY THYROID STIM H ORMONE CPT-4: 65483 08/14/2018 COMPREHEN METABOLIC PANEL CPT-4: 80613 08/14/2018 COMPLETE CBC W/AUTO DIFF WBC CPT-4: 75279 08/14/2018 URINALYSIS NONAUTO W /O SCOPE CPT-4: 90474 05/10/2018 URINE CULTURE/ COLON Y COUNT CPT-4: 36952 05/10/2018 URINE CULTURE/ COLON Y COUNT CPT-4: 20881 12/06/2017 ROUTINE VENIPUNCTURE CPT-4: 08457 11/30/2017 ASSAY OF FREE THYROXINE CPT-4: 05172 11/30/2017 ASSAY THYROID STIM H ORMONE CPT-4: 94631 11/30/2017 COMPLETE CBC W/AUTO DIFF WBC CPT-4: 18618 11/30/2017 METABOLIC PANEL TOTA L CA CPT-4: 54095 11/30/2017 FLU VACC PRSV FREE I NC ANTIG 65 AND OLDER CPT-4: 85628 11/22/2017 ASSAY, GLUCOSE, BLOO D QUANT CPT-4: 84342 11/22/2017 ADMIN INFLUENZA VIRU S VAC CPT-4: G0008 11/22/2017 ROUTINE VENIPUNCTURE CPT-4: 57949 09/27/2017 COMPREHEN METABOLIC PANEL CPT-4: 86639 09/27/2017 COMPLETE CBC W/AUTO DIFF WBC CPT-4: 37401 09/27/2017 A1C HPLC CPT-4: 30247 09/27/2017 ASSAY OF TROPONIN QUANT CPT-4: 90817 09/27/2017 LIPID PANEL CPT-4: 54259 09/27/2017 THER/PROPH/DIAG INJ SC/IM CPT-4: 56711 05/30/2017 TRIAMCINOLONE ACET I [place] NOS CPT-4: J3301 05/30/2017 URINALYSIS NONAUTO W /O SCOPE CPT-4: 26316 04/18/2017 URINE CULTURE/ COLON Y COUNT CPT-4: 46573 04/18/2017 FLU VACC PRSV FREE I NC ANTIG 65 AND OLDER CPT-4: 84269 12/10/2016 ADMIN INFLUENZA VIRU S VAC CPT-4: G0008 12/10/2016 ROUTINE VENIPUNCTURE CPT-4: 52687 11/01/2016 COMPREHEN METABOLIC PANEL CPT-4: 20424 11/01/2016 COMPLETE CBC W/AUTO DIFF WBC CPT-4: 78665 11/01/2016 LIPID PANEL CPT-4: 86573 11/01/2016 A1C HPLC CPT-4: 31949 11/01/2016 ASSAY THYROID STIM H ORMONE CPT-4: 63764 11/01/2016 ROUTINE VENIPUNCTURE CPT-4: 50103 05/13/2016 ASSAY THYROID STIM H ORMONE CPT-4: 68891 05/13/2016 COMPREHEN METABOLIC PANEL CPT-4: 82759 05/13/2016 COMPLETE CBC W/AUTO DIFF WBC CPT-4: 54154 05/13/2016 A1C HPLC CPT-4: 32842 05/13/2016 FLU VACC PRSV FREE I NC ANTIG 65 AND OLDER CPT-4: 79744 12/12/2015 ADMIN INFLUENZA VIRU S VAC CPT-4: G0008 12/12/2015 ROUTINE VENIPUNCTURE CPT-4: 22421 11/25/2015 ASSAY OF FREE THYROXINE CPT-4: 56727 11/25/2015 ASSAY THYROID STIM H ORMONE CPT-4: 48613 11/25/2015 COMPREHEN METABOLIC PANEL CPT-4: 07040 11/25/2015 COMPLETE CBC W/AUTO DIFF WBC CPT-4: 39321 11/25/2015 LIPID PANEL CPT-4: 29984 11/25/2015 A1C HPLC CPT-4: 19251 11/25/2015 URINALYSIS NONAUTO W /O SCOPE CPT-4: 88413 05/21/2015 ROUTINE VENIPUNCTURE CPT-4: 49563 02/19/2015 METABOLIC PANEL TOTA L CA CPT-4: 57694 02/19/2015 PRESCRIP TRANSMIT A ERX SY CPT-4: G8553 02/19/2015 FLU VACC PRSV FREE I NC ANTIG 65 AND OLDER CPT-4: 27391 12/20/2014 ADMIN INFLUENZA VIRU S VAC CPT-4: G0008 12/20/2014 URINALYSIS NONAUTO W /O SCOPE CPT-4: 36470 11/19/2014 URINE CULTURE/ COLON Y COUNT CPT-4: 33453 11/19/2014 ROUTINE VENIPUNCTURE CPT-4: 45699 11/14/2014 ASSAY OF FREE THYROXINE CPT-4: 72777 11/14/2014 ASSAY THYROID STIM H ORMONE CPT-4: 92731 11/14/2014 COMPREHEN METABOLIC PANEL CPT-4: 13446 11/14/2014 COMPLETE CBC W/AUTO DIFF WBC CPT-4: 21328 11/14/2014 LIPID PANEL CPT-4: 10169 11/14/2014 A1C HPLC CPT-4: 03214 11/14/2014 CERUM REMOVAL CPT-4: 70437 09/27/2014 PRESCRIP TRANSMIT A ERX SY CPT-4: G8553 07/11/2014 FLUZONE, 5ML (Medicare) CPT-4: Q2038 12/21/2013 ADMIN INFLUENZA VIRU S VAC CPT-4: G0008 12/21/2013 PRESCRIP TRANSMIT A ERX SY CPT-4: G8553 10/17/2013 PRESCRIP TRANSMIT A ERX SY CPT-4: G8553 09/24/2013 PRESCRIP TRANSMIT A ERX SY CPT-4: G8553 05/31/2013 ROUTINE VENIPUNCTURE CPT-4: 13079 03/28/2013 ASSAY OF FREE THYROXINE CPT-4: 14106 03/28/2013 ASSAY THYROID STIM H ORMONE CPT-4: 92722 03/28/2013 COMPREHEN METABOLIC PANEL CPT-4: 87643 03/28/2013 COMPLETE CBC W/AUTO DIFF WBC CPT-4: 62757 03/28/2013 LIPID PANEL CPT-4: 62729 03/28/2013 A1C HPLC CPT-4: 95150 03/28/2013 VITAMIN B 12 FOLIC ACID CPT-4: 81530|41106 03/28/2013 PRESCRIP TRANSMIT A ERX SY CPT-4: G8553 03/26/2013 PRESCRIP TRANSMIT A ERX SY CPT-4: G8553 12/19/2012 FLUZONE, 5ML (Medicare) CPT-4: Q2038 11/27/2012 ADMIN INFLUENZA VIRU S VAC CPT-4: G0008 11/27/2012 PRESCRIP TRANSMIT A ERX SY CPT-4: G8553 10/04/2012 PRESCRIP TRANSMIT A ERX SY CPT-4: G8553 07/14/2012 ROUTINE VENIPUNCTURE CPT-4: 15072 02/23/2012 ASSAY OF FREE THYROXINE CPT-4: 46064 02/23/2012 ASSAY THYROID STIM H ORMONE CPT-4: 81199 02/23/2012 COMPREHEN METABOLIC PANEL CPT-4: 01582 02/23/2012 COMPLETE CBC W/AUTO DIFF WBC CPT-4: 52560 02/23/2012 LIPID PANEL CPT-4: 48915 02/23/2012 A1C GLYCOSYLATED HEM OGLOBIN TEST CPT-4: 47755 02/23/2012 CERUM REMOVAL CPT-4: 02478 02/22/2012 PRESCRIP TRANSMIT A ERX SY CPT-4: G8553 02/22/2012 PRESCRIP TRANSMIT A ERX SY CPT-4: G8553 12/15/2011 FLUZONE, 5ML (Medicare) CPT-4: Q2038 12/02/2011 ADMIN INFLUENZA VIRU S VAC CPT-4: G0008 12/02/2011 ASSAY, GLUCOSE, BLOO D QUANT CPT-4: 37538 09/21/2011 URINALYSIS NONAUTO W /O SCOPE CPT-4: 14544 09/16/2011 URINE CULTURE/ COLON Y COUNT CPT-4: 18950 09/16/2011 ROUTINE VENIPUNCTURE CPT-4: 06307 09/15/2011 ASSAY OF FREE THYROXINE CPT-4: 38506 09/15/2011 ASSAY THYROID STIM H ORMONE CPT-4: 12953 09/15/2011 COMPREHEN METABOLIC PANEL CPT-4: 29167 09/15/2011 COMPLETE CBC W/AUTO DIFF WBC CPT-4: 83863 09/15/2011 LIPID PANEL CPT-4: 03019 09/15/2011 ASSAY OF INSULIN CPT-4: 56124 09/15/2011 A1C GLYCOSYLATED HEM OGLOBIN TEST CPT-4: 88136 09/15/2011 DRAIN/INJECT JOINT/B URSA CPT-4: 42040 08/16/2011 METHYLPREDNISOLONE 4 0 MG INJ CPT-4: J1030 08/16/2011 TRIAMCINOLONE ACET I [place] NOS CPT-4: J3301 08/16/2011 PRESCRIP TRANSMIT A ERX SY CPT-4: G8553 08/03/2011 PRESCRIP TRANSMIT A ERX SY CPT-4: G8553 07/26/2011 METHYLPREDNISOLONE 4 0 MG INJ CPT-4: J1030 06/28/2011 DRAIN/INJECT JOINT/B URSA CPT-4: 37182 06/28/2011 TRIAMCINOLONE ACET I [place] NOS CPT-4: J3301 06/28/2011 PRESCRIP TRANSMIT A ERX SY CPT-4: G8553 06/28/2011 ROUTINE VENIPUNCTURE CPT-4: 15427 04/01/2011 ASSAY OF FREE THYROXINE CPT-4: 10611 04/01/2011 ASSAY THYROID STIM H ORMONE CPT-4: 45724 04/01/2011 COMPREHEN METABOLIC PANEL CPT-4: 59391 04/01/2011 COMPLETE CBC W/AUTO DIFF WBC CPT-4: 09337 04/01/2011 LIPID PANEL CPT-4: 50533 04/01/2011 PRESCRIP TRANSMIT A ERX SY CPT-4: G8553 03/31/2011 CERUM REMOVAL CPT-4: 10733 02/11/2011 PRESCRIP TRANSMIT A ERX SY CPT-4: G8553 02/11/2011 FLUZONE, 5ML (Medicare) CPT-4: Q2038 12/09/2010 ADMIN INFLUENZA VIRU S VAC CPT-4: G0008 12/09/2010 PRESCRIP TRANSMIT A ERX SY CPT-4: G8553 10/15/2010 URINALYSIS NONAUTO W /O SCOPE CPT-4: 41001 09/29/2010 URINE CULTURE/ COLON Y COUNT CPT-4: 10058 09/29/2010 CUR TOBACCO NON-USER CPT-4: G8457 09/29/2010 ROUTINE VENIPUNCTURE CPT-4: 23036 07/06/2010 COMPLETE CBC W/AUTO DIFF WBC CPT-4: 38182 07/06/2010 COMPREHEN METABOLIC PANEL CPT-4: 39710 07/06/2010 LIPID PANEL CPT-4: 70401 07/06/2010 ASSAY THYROID STIM H ORMONE CPT-4: 97268 07/06/2010 ASSAY OF FREE THYROXINE CPT-4: 89118 07/06/2010 PRESCRIP TRANSMIT A ERX SY CPT-4: G8553 07/02/2010 INJ TRIGGER POINT 1/ 2 MUSCL CPT-4: 26646 04/06/2010 TRIAMCINOLONE ACET I [place] NOS CPT-4: J3301 04/06/2010 METHYLPREDNISOLONE 4 0 MG INJ CPT-4: J1030 04/06/2010 THER/PROPH/DIAG INJ SC/IM CPT-4: 59183 04/01/2010 KETOROLAC TROMETHAMI NE INJ CPT-4: J1885 04/01/2010 PRESCRIP TRANSMIT A ERX SY CPT-4: G8553 01/22/2010 FLU VACCINE 3 YRS & > IM UP 64 CPT-4: 31849 12/10/2009 ADMIN INFLUENZA VIRU S VAC CPT-4: G0008 12/10/2009 URINALYSIS NONAUTO W /O SCOPE CPT-4: 70438 12/02/2009 URINE CULTURE/ COLON Y COUNT CPT-4: 54154 12/02/2009 PRESCRIP TRANSMIT A ERX SY CPT-4: G8553 12/02/2009 THER/PROPH/DIAG INJ SC/IM CPT-4: 09642 09/10/2009 VITAMIN B12 INJECTION CPT-4: J3420 09/10/2009 THER/PROPH/DIAG INJ SC/IM CPT-4: 38953 08/11/2009 VITAMIN B12 INJECTION CPT-4: J3420 08/11/2009 ROUTINE VENIPUNCTURE CPT-4: 90273 06/10/2009 Vital Signs Date Vital 11/07/2018 Blood [...] 1: 142/60 Code: 8480-6 BMI: 38.2 Code: 53664-9 Heart Rate 1: 48 bpm Height: 5'2" Respiratory Rate: 20 bpm SpO2: 98% Temperature: 36.7 (C ) / 98.1 (F) Weight: 212 lbs 01/10/2018 Blood Pressure 1: 142/64 Code: 8480-6 BMI: 38.5 Code: 27921-2 Heart Rate 1: 52 bpm Height: 5'2" Respiratory Rate: 22 bpm SpO2: 96% Temperature: 36.1 (C ) / 96.9 (F) Weight: 214 lbs 12/06/2017 Blood Pressure 1: 124/80 Code: 8480-6 BMI: 38.3 Code: 01067-5 Heart Rate 1: 68 bpm Height: 5'2" Respiratory Rate: 20 bpm Temperature: 36.3 (C ) / 97.4 (F) Weight: 213 lbs 11/22/2017 Blood Pressure 1: 132/78 Code: 8480-6 BMI: 37.6 Code: 54919-3 Heart Rate 1: 68 bpm Height: 5'2" Respiratory Rate: 20 bpm SpO2: 97% Temperature: 36.8 (C ) / 98.2 (F) Weight: 209 lbs 10/20/2017 Blood Pressure 1: 150/76 Code: 8480-6 BMI: 38.5 Code: 98283-0 Heart Rate 1: 64 bpm Height: 5'2" Respiratory Rate: 20 bpm SpO2: 97% Temperature: 36.2 (C ) / 97.2 (F) Weight: 214 lbs 09/27/2017 Blood Pressure 1: 122/74 Code: 8480-6 BMI: 38.2 Code: 71572-8 Heart Rate 1: 64 bpm Height: 5'2" Respiratory Rate: 18 bpm SpO2: 96% Temperature: 35.8 (C ) / 96.4 (F) Weight: 212 lbs 08/16/2017 Blood Pressure 1: 124/78 Code: 8480-6 BMI: 37.8 Code: 10768-1 Heart Rate 1: 76 bpm Height: 5'2" Respiratory Rate: 20 bpm Temperature: 36.8 (C ) / 98.3 (F) Weight: 210 lbs 07/07/2017 Blood Pressure 1: 136/70 Code: 8480-6 BMI: 38.0 Code: 43677-1 Heart Rate 1: 68 bpm Height: 5'2" Respiratory Rate: 20 bpm SpO2: 97% Temperature: 36.8 (C ) / 98.2 (F) Weight: 211 lbs 05/30/2017 Blood Pressure 1: 140/65 Code: 8480-6 Heart Rate 1: 75 bpm Respiratory Rate: 24 bpm SpO2: 95% Temperature: 37.0 (C ) / 98.6 (F) Weight: 211 lbs 04/18/2017 Blood Pressure 1: 154/70 Code: 8480-6 BMI: 37.6 Code: 49968-2 Heart Rate 1: 76 bpm Height: 5'2" Respiratory Rate: 20 bpm SpO2: 98% Temperature: 36.9 (C ) / 98.5 (F) Weight: 209 lbs 10/25/2016 Blood Pressure 1: 156/70 Code: 8480-6 BMI: 37.1 Code: 54389-4 Heart Rate 1: 72 bpm Height: 5'2" Respiratory Rate: 20 bpm SpO2: 97% Temperature: 37.0 (C ) / 98.6 (F) Weight: 206 lbs 09/20/2016 Blood Pressure 1: 152/78 Code: 8480-6 BMI: 36.8 Code: 79581-0 Heart Rate 1: 78 bpm Height: 5'2" Respiratory Rate: 20 bpm SpO2: 98% Temperature: 36.1 (C ) / 97.0 (F) Weight: 204 lbs 05/12/2016 Blood Pressure 1: 142/70 Code: 8480-6 BMI: 36.9 Code: 37274-9 Heart Rate 1: 64 bpm Height: 5'2" [...] 1: 122/64 Code: 8480-6 BMI: 39.1 Code: 30768-9 Heart Rate 1: 76 bpm Height: 5'2" Respiratory Rate: 20 bpm Temperature: 36.8 (C ) / 98.2 (F) Weight: 217 lbs 05/21/2015 Blood Pressure 1: 144/70 Code: 8480-6 BMI: 39.4 Code: 98992-7 Heart Rate 1: 76 bpm Height: 5'2" Respiratory Rate: 20 bpm Temperature: 36.6 (C ) / 97.9 (F) Weight: 219 lbs 02/19/2015 Blood Pressure 1: 152/60 Code: 8480-6 BMI: 39.6 Code: 05713-7 Heart Rate 1: 84 bpm Height: 5'2" Respiratory Rate: 20 bpm Temperature: 37.0 (C ) / 98.6 (F) Weight: 220 lbs 11/13/2014 Blood Pressure 1: 146/76 Code: 8480-6 BMI: 39.8 Code: 74147-4 Heart Rate 1: 88 bpm Height: 5'2" Respiratory Rate: 20 bpm Temperature: 37.0 (C ) / 98.6 (F) Weight: 221 lbs 09/27/2014 Blood Pressure 1: 132/70 Code: 8480-6 BMI: 39.1 Code: 23431-0 Heart Rate 1: 88 bpm Height: 5'2" Respiratory Rate: 20 bpm Temperature: 36.4 (C ) / 97.6 (F) Weight: 217 lbs 07/11/2014 Blood Pressure 1: 132/66 Code: 8480-6 BMI: 39.9 Code: 82951-5 Heart Rate 1: 72 bpm Height: 5'2" Respiratory Rate: 20 bpm Temperature: 36.9 (C ) / 98.4 (F) Weight: 218 lbs 05/23/2014 Blood Pressure 1: 136/80 Code: 8480-6 Heart Rate 1: 76 bpm Respiratory Rate: 20 bpm Temperature: 36.7 (C) / 98.0 (F) Weight: 224 lbs 03/20/2014 Blood Pressure 1: 134/78 Code: 8480-6 BMI: 39.7 Code: 39336-0 Heart Rate 1: 84 bpm Height: 5'2" Respiratory Rate: 20 bpm Temperature: 36.7 (C ) / 98.0 (F) Weight: 217 lbs 10/17/2013 Blood Pressure 1: 146/78 Code: 8480-6 BMI: 39.5 Code: 78830-5 Heart Rate 1: 82 bpm Height: 5'2" Respiratory Rate: 18 bpm Temperature: 35.6 (C ) / 96.1 (F) Weight: 216 lbs 09/24/2013 Blood Pressure 1: 134/70 Code: 8480-6 BMI: 37.9 Code: 81478-1 Heart Rate 1: 80 bpm Height: 5'3" Respiratory Rate: 20 bpm Temperature: 36.8 (C ) / 98.2 (F) Weight: 214 lbs 05/31/2013 Blood Pressure 1: 132/70 Code: 8480-6 BMI: 37.6 Code: 99397-6 Heart Rate 1: 80 bpm Height: 5'3" Respiratory Rate: 20 bpm Temperature: 36.8 (C ) / 98.3 (F) Weight: 212 lbs 03/26/2013 Blood Pressure 1: 116/74 Code: 8480-6 Heart Rate 1: 68 bpm Respiratory Rate: 20 bpm Temperature: 36.2 (C) / 97.1 (F) Weight: 212 lbs 12/19/2012 Blood Pressure 1: 132/82 Code: 8480-6 BMI: 37.4 Code: 63155-3 Heart Rate 1: 76 bpm Height: 5'3" Respiratory Rate: 20 bpm Temperature: 36.7 (C ) / 98.0 (F) Weight: 211 lbs 12/04/2012 Blood Pressure 1: 130/76 Code: 8480-6 Heart Rate 1: 78 bpm 11/27/2012 Blood Pressure 1: 140/82 Code: 8480-6 BMI: 36.8 Code: 73087-0 Heart Rate 1: 66 bpm Height: 5'3" Respiratory Rate: 20 bpm Temperature: 36.1 (C ) / 96.9 (F) Weight: 208 lbs 10/04/2012 Blood Pressure 1: 138/80 Code: 8480-6 BMI: 36.4 Code: 03633-1 Heart Rate 1: 72 bpm Height: 5'4" Respiratory Rate: 20 bpm Temperature: 36.7 (C ) / 98.0 (F) Weight: 212 lbs 07/27/2012 Blood Pressure 1: 124/70 Code: 8480-6 BMI: 36.9 Code: 96072-9 Heart Rate 1: 60 bpm Height: 5'4" Temperature: 36.1 (C ) / 97.0 (F) Weight: 215 lbs 07/14/2012 Blood Pressure 1: 132/86 Code: 8480-6 BMI: 36.9 Code: 13330-7 Heart Rate 1: 76 bpm Height: 5'4" Respiratory Rate: 20 bpm Temperature: 36.8 (C ) / 98.2 (F) Weight: 215 lbs 06/08/2012 Blood Pressure 1: 134/82 Code: 8480-6 BMI: 36.6 Code: 86562-4 Heart Rate 1: 72 bpm Height: 5'4" Respiratory Rate: 20 bpm Temperature: 36.3 (C ) / 97.4 (F) Weight: 213 lbs 02/22/2012 Blood Pressure 1: 142/80 Code: 8480-6 BMI: 37.1 Code: 75085-7 Heart Rate 1: 76 bpm Height: 5'4" Respiratory Rate: 20 bpm Temperature: 36.8 (C ) / 98.3 (F) Weight: 216 lbs 12/28/2011 Blood Pressure 1: 128/68 Code: 8480-6 BMI: 37.6 Code: 28158-3 Heart Rate 1: 72 bpm Height: 5'4" [...] 1: 128/78 Code: 8480-6 BMI: 38.1 Code: 78846-8 Heart Rate 1: 84 bpm Height: 5'4" Respiratory Rate: 20 bpm Temperature: 36.9 (C ) / 98.4 (F) Weight: 222 lbs 08/16/2011 Blood Pressure 1: 138/80 Code: 8480-6 BMI: 37.9 Code: 85783-9 Heart Rate 1: 74 bpm Height: 5'4" Temperature: 36.1 (C ) / 97.0 (F) Weight: 221 lbs 08/03/2011 Blood Pressure 1: 126/78 Code: 8480-6 BMI: 38.4 Code: 04634-5 Heart Rate 1: 72 bpm Height: 5'4" Respiratory Rate: 20 bpm Temperature: 36.7 (C ) / 98.0 (F) Weight: 224 lbs 07/26/2011 Blood Pressure 1: 138/72 Code: 8480-6 BMI: 38.4 Code: 21686-3 Heart Rate 1: 72 bpm Height: 5'4" Respiratory Rate: 20 bpm Temperature: 36.6 (C ) / 97.9 (F) Weight: 224 lbs 06/28/2011 Blood Pressure 1: 122/78 Code: 8480-6 BMI: 38.8 Code: 33115-1 Heart Rate 1: 88 bpm Height: 5'4" Respiratory Rate: 20 bpm Temperature: 36.6 (C ) / 97.8 (F) Weight: 226 lbs 03/31/2011 Blood Pressure 1: 116/60 Code: 8480-6 BMI: 38.1 Code: 11761-1 Heart Rate 1: 92 bpm Height: 5'4" Respiratory Rate: 20 bpm Temperature: 36.8 (C ) / 98.2 (F) Weight: 222 lbs 02/11/2011 Blood Pressure 1: 118/62 Code: 8480-6 BMI: 37.9 Code: 52128-1 Heart Rate 1: 80 bpm Height: 5'4" Temperature: 36.5 (C ) / 97.7 (F) Weight: 221 lbs 10/15/2010 Blood Pressure 1: 132/70 Code: 8480-6 Heart Rate 1: 84 bpm Respiratory Rate: 20 bpm Temperature: 36.7 (C) / 98.0 (F) Weight: 221 lbs 09/29/2010 Blood Pressure 1: 114/72 Code: 8480-6 BMI: 37.6 Code: 22510-3 Heart Rate 1: 76 bpm Height: 5'4" [...] 1: 120/70 Code: 8480-6 BMI: 38.3 Code: 81033-2 Heart Rate 1: 88 bpm Height: 5'5" [...] ago 03/26/2013 None cough Location in the roat 12/19/2012 None cough Quality productive 12/19/2012 [...] Encounters Encounter Performer Loca tion Codes Date () OFFICE/OUTPA TIENT VISIT EST Diagnosis: Acute serous otitis media, left ear[ICD10: H65.02] Jennifer Rosario VIKKI Alyssa Didi-DacheMIKE [email or web address] CPT-4: 18030 11/07/2018 ([id number]) OFFICE/OUTPA TIENT VISIT EST Diagnosis: Essential (primary) hypertension[ICD10: I10] Diagnosis: 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] Diagnosis: Hypoglycemia, unspecified[ICD10: E16.2] Diagnosis: Other fatigue[ICD10: R53.83] Diagnosis: Urinary tract infection, site not specified[ICD10: N39.0] Vikki Ciscobhavya PIKE AlejandraSujata [email or web address] CPT-4: 07988 08/14/2018 ([id number]) OFFICE/OUTPA TIENT VISIT EST Diagnosis: Essential (primary) hypertension[ICD10: I10] Diagnosis: Gastro-esophageal reflux disease without esophagitis[ICD10: K21.9] Diagnosis: Urinary tract infection, site not specified[ICD10: N39.0] Vikki PIKE AlejandraSujata [email or web address] CPT-4: 91945 05/10/2018 ([id number]) OFFICE/OUTPA TIENT VISIT EST Diagnosis: Gastro-esophageal reflux disease without esophagitis[ICD10: K21.9] Diagnosis: Epigastric pain[ICD10: R10.13] Vikki PIKE AlejandraSujata [employer] CPT-4: 37573 02/14/2018 ([id number]) OFFICE/OUTPA TIENT VISIT EST Diagnosis: 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] Diagnosis: Essential (primary) hypertension[ICD10: I10] Diagnosis: Generalized anxiety disorder[ICD10: F41.1] Diagnosis: Gastro-esophageal reflux disease without esophagitis[ICD10: K21.9] Vikki GUAMAN [facility] CPT-4: 36794 01/10/2018 OFFICE/OUTPATIENT SIT EST Diagnosis: Gastro-esophageal reflux disease without esophagitis[ICD10: K21.9] Diagnosis: Palpitations[ICD10: R00.2] Diagnosis: Urinary tract infection, site not specified[ICD10: N39.0] Diagnosis: Generalized anxiety disorder[ICD10: F41.1] Vikki MARTINEZ [employer] [facility] CPT-4: 71898 12/06/2017 ([id number]) NURSE/OUTPAT IENT VISIT EST Diagnosis: 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] Diagnosis: Hypoglycemia, unspecified[ICD10: E16.2] Diagnosis: Dizziness and giddiness[ICD10: R42] Diagnosis: Occlusion and stenosis of bilateral carotid arteries[ICD10: I65.23] Vikki GUAMAN [facility] CPT-4: 74452 11/30/2017 OFFICE/OUTPATIENT SIT EST Diagnosis: Epigastric pain[ICD10: R10.13] Diagnosis: Generalized anxiety disorder[ICD10: F41.1] Diagnosis: FLU VACCINE[ICD10: Z23] Vikki GUAMAN [facility] CPT-4: 08129 11/22/2017 ([id number]) OFFICE/OUTPA TIENT VISIT EST Diagnosis: Essential (primary) hypertension[ICD10: I10] Diagnosis: Hypoglycemia, unspecified[ICD10: E16.2] Diagnosis: Gastro-esophageal reflux disease without esophagitis[ICD10: K21.9] Vikki GUAMAN [employer] [facility] CPT-4: 59440 10/20/2017 ([id number]) OFFICE/OUTPA TIENT VISIT EST Diagnosis: Dizziness and giddiness[ICD10: R42] Jennifer CID [facility] CPT-4: 77351 09/27/2017 ([id number]) OFFICE/OUTPA TIENT VISIT EST Diagnosis: Cervicalgia[ICD10: M54.2] Diagnosis: Other spondylosis with radiculopathy, cervical region[ICD10: M47.22] Vikki GUAMAN [facility] CPT-4: 62159 08/16/2017 ([id number]) OFFICE/OUTPA TIENT VISIT EST Diagnosis: Hypoglycemia, unspecified[ICD10: E16.2] Diagnosis: Other spondylosis with radiculopathy, cervical region[ICD10: M47.22] Diagnosis: Vertigo of central origin, 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] Diagnosis: 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] Vikki MARTINEZ [facility] CPT-4: 76361 07/07/2017 ([id number]) OFFICE/OUTPA TIENT VISIT EST Diagnosis: Benign paroxysmal vertigo, bilateral[ICD10: H81.13] Diagnosis: Otalgia, bilateral[ICD10: H92.03] Jennifer CID [facility] CPT-4: 85160 05/30/2017 ([id number]) OFFICE/OUTPA TIENT VISIT EST Diagnosis: Low back pain[ICD10: M54.5] Diagnosis: Radiculopathy, lumbosacral region[ICD10: M54.17] Diagnosis: Left lower quadrant pain[ICD10: R10.32] Vikki MARTINEZ [facility] CPT-4: 15359 04/18/2017 ([id number]) OFFICE/OUTPA TIENT VISIT EST Diagnosis: FLU VACCINE[ICD10: Z23] Vikki GUAMAN [facility] CPT-4: 72854 12/10/2016 ([id number]) OFFICE/OUTPA TIENT VISIT EST Diagnosis: Mixed hyperlipidemia[ICD10: E78.2] Diagnosis: Essential (primary) hypertension[ICD10: I10] Diagnosis: 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] Diagnosis: Impaired fasting glucose[ICD10: R73.01] Diagnosis: Other fatigue[ICD10: R53.83] Vikki GUAMAN [employer] [facility] CPT-4: 93822 11/01/2016 ([id number]) OFFICE/OUTPA TIENT VISIT EST Diagnosis: Pain in thoracic spine[ICD10: M54.6] Diagnosis: Other intervertebral disc degeneration, 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] Vikki GUAMAN [employer] [facility] CPT-4: 02817 10/25/2016 ([id number]) OFFICE/OUTPA TIENT VISIT EST Diagnosis: Left lower quadrant pain[ICD10: R10.32] Diagnosis: Low back pain[ICD10: M54.5] Vikki GUAMAN [employer] [facility] CPT-4: 83112 09/20/2016 ([id number]) OFFICE/OUTPA TIENT VISIT EST Diagnosis: Mixed hyperlipidemia[ICD10: E78.2] Diagnosis: Essential (primary) hypertension[ICD10: I10] Diagnosis: Hypoglycemia, unspecified[ICD10: E16.2] Vikki MARTINEZ [email or web address] CPT-4: 42817 05/13/2016 ([id number]) OFFICE/OUTPA TIENT VISIT EST Diagnosis: Impaired fasting glucose[ICD10: R73.01] Diagnosis: Mastodynia[ICD10: N64.4] Diagnosis: Mixed hyperlipidemia[ICD10: E78.2] Diagnosis: Essential (primary) hypertension[ICD10: I10] Diagnosis: Other fatigue[ICD10: R53.83] Vikki GUAMAN [email or web address] CPT-4: 76599 05/12/2016 ([id number]) OFFICE/OUTPA TIENT VISIT EST Diagnosis: Acute upper respiratory infection, unspecified[ICD10: J06.9] Yue Moya VIKKI GUAMAN [employer] [facility] CPT-4: 04119 03/18/2016 ([id number]) OFFICE/OUTPA TIENT VISIT EST Diagnosis: Acute mastoiditis without complications, right ear[ICD10: H70.001] Vikki GUAMAN [facility] CPT-4: 30557 02/06/2016 ([id number]) OFFICE/OUTPA TIENT VISIT EST Diagnosis: FLU VACCINE[ICD10: Z23] Vikki GUAMAN [facility] CPT-4: 30033 12/12/2015 ([id number]) OFFICE/OUTPA TIENT VISIT EST Diagnosis: Mixed hyperlipidemia[ICD10: E78.2] Diagnosis: Essential (primary) hypertension[ICD10: I10] Diagnosis: 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] Diagnosis: Impaired fasting glucose[ICD10: R73.01] Vikki MARTINEZ [facility] CPT-4: 67234 11/25/2015 ([id number]) OFFICE/OUTPA TIENT VISIT EST Diagnosis: Constipation, unspecified[ICD10: K59.00] Vikki MARTINEZ [facility] CPT-4: 52883 08/26/2015 ([id number]) OFFICE/OUTPA TIENT VISIT EST Diagnosis: Essential (primary) hypertension[ICD10: I10] Diagnosis: Mixed hyperlipidemia[ICD10: E78.2] Diagnosis: Chronic kidney disease, stage 1[ICD10: N18.1] Vikki MARTINEZ [facility] CPT-4: 34069 05/21/2015 ([id number]) OFFICE/OUTPA TIENT VISIT EST Diagnosis: Muscle weakness (generalized)[ICD10: M62.81] Diagnosis: Dizziness and giddiness[ICD10: R42] Diagnosis: Essential (primary) hypertension[ICD10: I10] Diagnosis: History of falling[ICD10: Z91.81] Vikki MARTINEZ [facility] CPT-4: 04358 02/19/2015 ([id number]) OFFICE/OUTPA TIENT VISIT EST Diagnosis: FLU VACCINE[ICD10: Z23] Vikki GUAMAN [facility] CPT-4: 34407 12/20/2014 ([id number]) OFFICE/OUTPA TIENT VISIT EST Diagnosis: Acute renal failure[ICD9: 584.9] Diagnosis: POLYURIA[ICD9: 788.42] Vikki GUAMAN DO [facility] CPT-4: 27150 11/19/2014 ([id number]) OFFICE/OUTPA TIENT VISIT EST Diagnosis: HYPERLIPIDEMIA NEC/NOS[ICD9: 272.4] Diagnosis: HYPERTENSION[ICD9: 401.9] Diagnosis: CAD[ICD9: 414.00] Diagnosis: Hyperglycemia[ICD9: 790.29] Diagnosis: MALAISE AND FATIGUE[ICD9: 780.79] Vikki MARTINEZ [facility] CPT-4: 98934 11/14/2014 ([id number]) OFFICE/OUTPA TIENT VISIT EST Diagnosis: MALAISE AND FATIGUE[ICD9: 780.79] Diagnosis: HYPOGLYCEMIA[ICD9: 251.2] Diagnosis: Grieving[ICD9: 309.0] Diagnosis: ABDOMINAL PAIN[ICD9: 789.00] Vikki GUAMAN [facility] CPT-4: 36024 11/13/2014 OFFICE/OUTPATIENT SIT EST Diagnosis: CERUMEN IMPACTION[ICD9: 380.4] Diagnosis: EUSTACHIAN TUBE DYSFUNCTION[ICD9: 381.81] Jessenia EcheverriaShemargarito PIKE S. Esther RENDER DO [facility] CPT-4: 16456 09/27/2014 ([id number]) OFFICE/OUTPA TIENT VISIT EST Diagnosis: Leg pain[ICD9: 729.5] Diagnosis: SUPERFIC PHLEBITIS-LEG[ICD9: 451.0] Vikki MARTINEZ [facility] CPT-4: 65524 07/11/2014 ([id number]) OFFICE/OUTPA TIENT VISIT EST Diagnosis: Thoracic back pain[ICD9: 724.1] Diagnosis: SPASM OF MUSCLE[ICD9: 728.85] Vikki GUAMAN [facility] CPT-4: 46599 05/23/2014 ([id number]) OFFICE/OUTPA TIENT VISIT EST Diagnosis: DIZZINESS/VERTIGO[ICD9: 780.4] Diagnosis: Benign positional vertigo[ICD9: 386.11] Diagnosis: HYPERTENSION[ICD9: 401.9] Diagnosis: Suspicious nevus[ICD9: 238.2] Vikki GUAMAN [facility] CPT-4: 78303 03/20/2014 ([id number]) OFFICE/OUTPA TIENT VISIT EST Diagnosis: FLU VACCINE[ICD10: Z23] Vikki GUAMAN [facility] CPT-4: 26141 12/21/2013 OFFICE/OUTPATIENT SIT EST Diagnosis: SINUSITIS, ACUTE[ICD9: 461.9] Diagnosis: EUSTACHIAN TUBE DYSFUNCTION[ICD9: 381.81] Jessenia RUBI [facility] CPT-4: 27561 10/17/2013 ([id number]) OFFICE/OUTPA TIENT VISIT EST Diagnosis: DIZZINESS/VERTIGO[ICD9: 780.4] Diagnosis: HYPERTENSION[ICD9: 401.9] Vikki GUAMAN [facility] CPT-4: 72298 09/24/2013 ([id number]) OFFICE/OUTPA TIENT VISIT EST Diagnosis: HYPERTENSION[ICD9: 401.9] Diagnosis: MALAISE AND FATIGUE[ICD9: 780.79] Diagnosis: SINUSITIS, ACUTE[ICD9: 461.9] Vikki GUAMAN [facility] CPT-4: 93179 05/31/2013 ([id number]) OFFICE/OUTPA TIENT VISIT EST Diagnosis: HYPERLIPIDEMIA NEC/NOS[ICD9: 272.4] Diagnosis: HYPERTENSION[ICD9: 401.9] Diagnosis: B12 DEFIC ANEMIA NEC[ICD9: 281.1] Diagnosis: HYPOGLYCEMIA[ICD9: 251.2] Vikki GUAMAN [facility] CPT-4: 25601 03/28/2013 OFFICE/OUTPATIENT SIT EST Diagnosis: COUGH[ICD9: 786.2] Jessenia GUAMAN [facility] CPT-4: 47608 03/26/2013 OFFICE/OUTPATIENT SIT EST Diagnosis: COUGH[ICD9: 786.2] Diagnosis: URI, ACUTE[ICD9: 465.9] Jessenia GUAMAN DO [facility] CPT-4: 41853 12/19/2012 ([id number]) OFFICE/OUTPA TIENT VISIT EST Diagnosis: HYPERTENSION[ICD9: 401.9] Diagnosis: CEPHALGIA[ICD9: 784.0] Diagnosis: ANXIETY STATE NOS[ICD9: 300.00] Diagnosis: FLU VACCINE[ICD9: V04.81] Vikki GUAMAN [facility] CPT-4: 96397 11/27/2012 ([id number]) OFFICE/OUTPA TIENT VISIT EST Diagnosis: DIZZINESS/VERTIGO[ICD9: 780.4] Diagnosis: SINUSITIS, ACUTE[ICD9: 461.9] Diagnosis: Benign positional vertigo[ICD9: 386.11] Vikki MARTINEZ [facility] CPT-4: 20120 10/04/2012 OFFICE/OUTPATIENT SIT EST Diagnosis: OTITIS MEDIA NOS[ICD9: 382.9] Vikki GUAMAN [facility] CPT-4: 38400 07/27/2012 OFFICE/OUTPATIENT SIT EST Diagnosis: Perforation of ear drum[ICD9: 384.20] Diagnosis: SINUSITIS, ACUTE[ICD9: 461.9] [facility]: 13960 07/14/2012 ([id number]) OFFICE/OUTPA TIENT VISIT EST Diagnosis: Mastalgia[ICD9: 611.71] Vikki GUAMAN [facility] CPT-4: 21116 06/08/2012 ([id number]) OFFICE/OUTPA TIENT VISIT EST Diagnosis: HYPERLIPIDEMIA NEC/NOS[ICD9: 272.4] Diagnosis: HYPERTENSION[ICD9: 401.9] Diagnosis: DIZZINESS/VERTIGO[ICD9: 780.4] Diagnosis: Hyperglycemia[ICD9: 790.29] Diagnosis: MALAISE AND FATIGUE[ICD9: 780.79] Vikki MARTINEZ [facility] CPT-4: 97145 02/23/2012 ([id number]) OFFICE/OUTPA TIENT VISIT EST Diagnosis: EUSTACHIAN TUBE DYSFUNCTION[ICD9: 381.81] Diagnosis: DIZZINESS/VERTIGO[ICD9: 780.4] Diagnosis: ABDOMINAL PAIN[ICD9: 789.00] Diagnosis: GERD[ICD9: 530.81] Diagnosis: CERUMEN IMPACTION[ICD9: 380.4] Vikki GUAMAN DO [facility] CPT-4: 73437 02/22/2012 OFFICE/OUTPATIENT SIT EST Diagnosis: ABDOMINAL PAIN[ICD9: 789.00] Diagnosis: DYSPEPSIA[ICD9: 536.8] Vikki GUAMAN DO [facility] CPT-4: 53366 12/28/2011 ([id number]) OFFICE/OUTPA TIENT VISIT EST Diagnosis: ABDOMINAL PAIN[ICD9: 789.00] Diagnosis: DYSPEPSIA[ICD9: 536.8] Diagnosis: IBS[ICD9: 564.1] Vikki GUAMAN DO [facility] CPT-4: 66916 12/15/2011 OFFICE/OUTPATIENT SIT EST Diagnosis: DIZZINESS/VERTIGO[ICD9: 780.4] Diagnosis: HYPOGLYCEMIA[ICD9: 251.2] Vikki GUAMAN [facility] CPT-4: 80087 09/21/2011 ([id number]) OFFICE/OUTPA TIENT VISIT EST Diagnosis: URINARY TRACT INFECTION[ICD9: 599.0] Vikki MARTINEZ [facility] CPT-4: 86058 09/16/2011 ([id number]) OFFICE/OUTPA TIENT VISIT EST Diagnosis: HYPERLIPIDEMIA NEC/NOS[ICD9: 272.4] Diagnosis: HYPERTENSION[ICD9: 401.9] Diagnosis: MALAISE AND FATIGUE[ICD9: 780.79] Diagnosis: DIZZINESS/VERTIGO[ICD9: 780.4] Vikki GUAMAN [facility] CPT-4: 38090 09/15/2011 ([id number]) OFFICE/OUTPA TIENT VISIT EST Diagnosis: DIZZINESS/VERTIGO[ICD9: 780.4] Diagnosis: MALAISE AND FATIGUE[ICD9: 780.79] Diagnosis: HYPERTENSION[ICD9: 401.9] Vikki GUAMAN DO [facility] CPT-4: 55551 09/13/2011 OFFICE/OUTPATIENT SIT EST Diagnosis: LUMB/LUMBOSAC DISC DEGEN[ICD9: 722.52] Diagnosis: Radiculopathy of leg[ICD9: 724.4] Diagnosis: 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] Diagnosis: SPINAL ENTHESOPATHY[ICD9: 720.1] Vikki GUAMAN [facility] CPT-4: 90481 08/16/2011 ([id number]) OFFICE/OUTPA TIENT VISIT EST Diagnosis: PAIN, LOWER BACK[ICD9: 724.2] Diagnosis: SPASM OF MUSCLE[ICD9: 728.85] Diagnosis: SCIATICA[ICD9: 724.3] Diagnosis: Lumbar degenerative disc disease[ICD9: 722.52] Vikki MARTINEZ [facility] CPT-4: 42142 08/03/2011 ([id number]) OFFICE/OUTPA TIENT VISIT EST Diagnosis: PAIN IN THORACIC SPINE[ICD9: 724.1] Diagnosis: SPASM OF MUSCLE[ICD9: 728.85] Vikki GUAMAN [facility] CPT-4: 68637 07/26/2011 ([id number]) OFFICE/OUTPA TIENT VISIT EST Diagnosis: PAIN, LOWER BACK[ICD9: 724.2] Diagnosis: SPASM OF MUSCLE[ICD9: 728.85] Diagnosis: Sacroiliac dysfunction[ICD9: 739.4] Diagnosis: Lumbar degenerative disc disease[ICD9: 722.52] Vikki MARTINEZ [facility] CPT-4: 40502 06/28/2011 OFFICE/OUTPATIENT SIT EST Diagnosis: MALAISE AND FATIGUE[ICD9: 780.79] Diagnosis: HYPOTENSION[ICD9: 458.9] Diagnosis: CAD[ICD9: 414.00] Vikki GUAMAN [facility] CPT-4: 41280 03/31/2011 OFFICE/OUTPATIENT SIT EST Diagnosis: SINUSITIS, ACUTE[ICD9: 461.9] Diagnosis: PHARYNGITIS, ACUTE[ICD9: 462] Diagnosis: CERUMEN IMPACTION[ICD9: 380.4] [facility] 98412 02/11/2011 OFFICE/OUTPATIENT SIT EST Diagnosis: PAIN IN THORACIC SPINE[ICD9: 724.1] Diagnosis: GERD[ICD9: 530.81] Diagnosis: DIZZINESS/VERTIGO[ICD9: 780.4] [facility] CPT-4: 34741 10/15/2010 OFFICE/OUTPATIENT SIT EST [facility] CPT-4: 51178 09/29/2010 ([id number]) OFFICE/OUTPA TIENT VISIT EST [facility] CPT-4: 32950 07/02/2010 ([id number]) OFFICE/OUTPA TIENT VISIT, EST Diagnosis: PAIN, LOWER BACK[ICD9: 724.2] [facility] CPT-4: 44596 04/06/2010 ([id number]) OFFICE/OUTPA TIENT VISIT, EST [facility] CPT-4: 52996 04/01/2010 ([id number]) OFFICE/OUTPA TIENT VISIT, EST Vikki [facility] CPT-4: 47550 01/22/2010 ([id number]) OFFICE/OUTPA TIENT VISIT, EST Vikki [facility] CPT-4: 77239 12/02/2009 ([id number]) OFFICE/OUTPA TIENT VISIT, EST Vikki [facility]. [facility] CPT-4: 06705 10/21/2009 ([id number]) OFFICE/OUTPA TIENT VISIT, EST [facility]ki [facility] CPT-4: 40038 09/10/2009 ([id number]) OFFICE/OUTPA TIENT VISIT, EST Vikki [facility] CPT-4: 79406 08/11/2009 ([id number]) OFFICE/OUTPA TIENT VISIT, EST Vikki [facility]. [facility] CPT-4: 96609 06/09/2009 Plan of Care Planned Activity Notes [...] ICD-9 : 381.01 ICD-10 : H65.02 11/07/2018 Visit Diagnosis Plan: Urinary tract infe [...] : R53.83 08/14/2018 Appointment: Vikki Guaman WPtel: [address] [place], [place] [phone] US FOLLOW UP 08/14/2018 Visit Diagnosis Plan: [...] : K21.9 05/10/2018 Appointment: Vikki Guaman WPtel: [address] [place], [place] [phone] US FOLLOW UP 05/10/2018 Patient Education: metoprolol tartrate- [employer] Coupon [id number] [email or web address].easy2map/samplemd/resources/[email or web address].pdf Completed 05/10/2018 Appointment: Vikki Guamantel: [address] [place], [place] [id number] [place] CANCELED 04/21/2018 Visit Diagnosis Plan: Gastro-esophageal reflux disease without esophagitis Discussion: Continue protonix and carafa te Proceed with updated EGD ICD-9 : 530.81 ICD-10 : K21.9 02/14/2018 Visit Diagnosis Plan: Epigastric pain Discussion: Check CT abdomen/pelvis due to ongoing abdominal pain ICD-9 : 789.06 ICD-10 : R10.13 02/14/2018 Appointment: Vikki Guaman WPtel: [address] [place], [place] [phone] US FOLLOW UP 02/14/2018 Care Plan: CT PELVIS W/O DYE LOINC : 96884-9 Pending 02/14/2018 Care Plan: CT ABDOMEN W/O DYE LOINC : 57968-6 Pending 02/14/2018 Care Plan: Referral Order SNOMED-CT : [id number] Pending 02/14/2018 Visit Diagnosis Plan: 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 Discussion: S/P [...] : I10 01/10/2018 Appointment: Vikki Guaman WPtel: [address] [place], [place] [id number] [place] FOLLOW UP 01/10/2018 Visit Diagnosis Plan: [...] : R00.2 12/06/2017 Appointment: Vikki Guaman WPtel: [address] [place] [address] FOLLOW UP 12/06/2017 Patient Education: Patient Medication Summary Completed 12/06/2017 Appointment: Vikki Guaman WPtel: [address] [place] [address] LAB 11/30/2017 Patient Education: Patient Medication Summary [...] : F41.1 11/22/2017 Appointment: Vikki Guaman WPtel: [address] [place] [address] US FOLLOW UP 11/22/2017 Patient Education: Patient Medication [...] : K21.9 10/20/2017 Appointment: Vikki Guaman WPtel: [facility] [address] ACUTE ILLNESS 10/20/2017 Patient Education: Patient Medication Summary Completed 10/20/2017 Visit Diagnosis Plan: Dizziness and giddiness Discussion: blood work to be completed in office including cmp, cbc, troponin to rule out glucose intolerance, infection, dehydration. 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 brown's office. will have front office make appt. patient has carotid doppler annually. ICD-9 : 780.4 ICD-10 : R42 09/27/2017 Appointment: Jennifer Rosario [address] [place] [address] ACUTE ILLNESS 09/27/2017 Patient Education: Patient Medication Summary Completed 09/27/2017 Visit Diagnosis Plan: Cervicalgia Di scussion: Complete course of PT since symptoms improved Continue stretching exercises Notify if symptoms return or worsen ICD-9 : 723.1 ICD-10 : M54.2 08/16/2017 Appointment: Vikki Guaman WPtel: [facility] [place] [phone] FOLLOW UP 08/16/2017 Patient Education: Patient Medication [...] H81.43 07/07/2017 Appointment: Vikki Guaman WPtel: [phone] 07/07/2017 Patient Education: Patient Medication Summary Completed 07/07/2017 Care Plan: MRI NECK SPINE W/O DYE LOINC : 60943-4 Pending 07/07/2017 Visit Diagnosis Plan: Otalgia, bilateral [...] ICD-10 : H81.13 05/30/2017 Appointment: Jennifer Rosario [address] [place] [address] ACUTE ILLNESS 05/30/2017 Patient Education: Patient Medication [...] : M54.17 04/18/2017 Appointment: Vikki Guaman WPtel: [phone] ACUTE ILLNESS 04/18/2017 Patient Education: Patient Medication Summary Completed 04/18/2017 Appointment: Vikki Guaman WPtel: [address] [place], [place] [id number] [place] INJECTION 12/10/2016 Patient Education: Patient Medication Summary Completed 12/10/2016 Appointment: Vikki Guaman WPtel: [address] [place], [place] [phone] [place] LAB 11/01/2016 Patient Education: Patient Medication Summary Completed 11/01/2016 Visit Diagnosis Plan: Pain in thoracic spine Discussion: PT has helped Continue stretches and walking Discussed joining [facility] to continue exercise ICD-9 : 724.1 ICD-10 : M54.6 10/25/2016 Visit Diagnosis Plan: Other intervertebr al disc degeneration, lumbar region Follow Up: 3 months ICD-9 : 722.52 ICD-10 : M51.36 10/25/2016 Appointment: Vikki Guaman WPtel: [address] [place], [place] [phone] FOLLOW UP 10/25/2016 Patient Education: Patient Medication [...] : R10.32 09/20/2016 Appointment: Vikki Guaman WPtel: [address] [place], [place] [phone] ACUTE ILLNESS 09/20/2016 Patient Education: Patient Medication Summary Completed 09/20/2016 Appointment: Vikki Guaman WPtel: [address] [place], [place] [phone] [place] LAB 05/13/2016 Patient Education: Patient Medication [...] : N64.4 05/12/2016 Appointment: Vikki Guaman WPtel: [address] [place], [place] [phone] [place] 05/11 confirmed `sl ACUTE ILLNESS 05/12/2016 Patient Education: Patient Medication Summary Completed 05/12/2016 Care Plan: 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 Rest, Fluids, Tylenol/Motrin prn fever or bodyaches. Notify if worsening symptoms. 02/06/2016 Appointment: Vikki Guaman WPtel: [address] [place], [place] [phone] ACUTE ILLNESS 02/06/2016 Patient Education: Patient Medication Summary Completed 02/06/2016 Appointment: Vikki Guaman WPtel: [address] [place], [place] [phone] [place] INJECTION 12/12/2015 Patient Education: Patient Medication Summary Completed 12/12/2015 Appointment: Vikki Guaman WPtel: [address] [place], [place] [phone] [place] LAB 11/25/2015 Patient Education: Patient Medication Summary Completed 11/25/2015 Visit Plan: Add miralax daily Use d aily probiotic and metamucil and push fluids Notify if worsens/persists 08/26/2015 Appointment: Vikki Guaman WPtel: [phone] [facility] 08/25/15 confirmed ~sl ACUTE ILLNESS 08/26/2015 Patient Education: Patient Medication Summary Completed 08/26/2015 Visit Plan: No NSAIDs Kidney functi on discussed Discussed hydration Monitor lab every 4months so will check CMP, HbA1C next month 05/21/2015 Visit Plan: No NSAIDs Kidney functi on discussed Discussed hydration Monitor lab every 4months so will check CMP, HbA1C next month 05/21/2015 Appointment: Vikki Guaman WPtel: [phone] [facility] 05/19 confirmed ~sl ACUTE ILLNESS 05/21/2015 Patient [...] Chem 7 02/19/2015 Appointment: Vikki Guaman WPtel: [phone] [facility] 02/18/15 appt confirmed cn FOLLOW UP 02/19/2015 Patient Education: Patient Medication Summary Completed 02/19/2015 Patient Education: Vertigo Completed 02/19/2015 Appointment: Vikki Guaman WPtel: [phone] [place], [place] [phone] [place] INJECTION 12/20/2014 Patient Education: Patient Medication Summary Completed 12/20/2014 Appointment: Vikki Guaman WPtel: [address] [place], [place] [phone] UA 11/19/2014 Patient Education: Patient Medication Summary Completed 11/19/2014 Referral: Edy Cheek WPtel: #1 [facility] Ronny Hoyt [id number] US Referral Completed 11/18/2014 Appointment: Vikki Guaman WPtel: [address] [place] [address] LAB 11/14/2014 Patient Education: Patient Medication Summary Completed 11/14/2014 Visit Plan: Check CMP, CBC, TSH, Fr ee T4, B12, Lipids, HbA1C Discussed 6 small meals a day each with protein Would likely benefit from antidepressant Update colonoscopy 11/13/2014 Appointment: Vikki Guaman WPtel: [address] [place] [address] 11/12/14 confirmed ACUTE ILLNESS 11/13/2014 Patient Education: Patient Medication Summary Completed 11/13/2014 Visit Plan: Cerumen flush with warm water and peroxide - good results Resume Nasonex nasal spray daily Recommended Debrox earwax removal drops 09/27/2014 Visit Plan: Cerumen flush with warm water and peroxide - good results Resume Nasonex nasal spray daily Recommended Debrox earwax removal drops 09/27/2014 Appointment: Jessenia Francis WPtel: [address] [place] [address] ACUTE ILLNESS 09/27/2014 Patient Education: Patient Medication Summary Completed 09/27/2014 Visit Plan: Continue aspirin daily Add meloxicam for 1week Elevate and Ice Call on Tuesday07/11/2014 Appointment: Vikki Guaman WPtel: [address] [place] [address] ACUTE ILLNESS 07/11/2014 Patient Education: Patient Medication Summary Completed 07/11/2014 Visit Plan: Been using baclofen at bedtime and has helped some PT for next 2-4weeks 05/23/2014 Appointment: Vikki Guaman WPtel: [address] [place] [address] Hospital Follow Up 05/23/2014 Patient Education: Patient Medication Summary Completed 05/23/2014 Appointment: Vikki Guaman WPtel: [address] [place], [place] [phone] LAB 05/10/2014 Appointment: Vikki Guaman WPtel: [address] [place] [address] feeling better, weather - FOLLOW UP 04/24/2014 Referral: Edy Cheek WPtel: [address] [facility] [address] Referral Appointment Requested 04/03/2014 Visit Plan: Continue exercise and c urrent meds See surgery for removal of right arm lesion 03/20/2014 Appointment: Vikki Guaman WPtel: [address] [place] [address] FOLLOW UP 03/20/2014 Patient Education: Patient Medication Summary Completed 03/20/2014 Appointment: Vikki Guaman WPtel: [address] [place] [address] INJECTION 12/21/2013 Patient Education: Patient Medication Summary Completed 12/21/2013 Visit Plan: Resume Claritin PO yesi y May take Ibuprofen PM at night for sleep Continue Flonase 2 sprays each nostril bid Complete prednisone 20 mg PO bid 10/17/2013 Appointment: Jessenia Francis WPtel: [address] [place] [address] ACUTE ILLNESS 10/17/2013 Patient Education: Patient Medication Summary Completed 10/17/2013 Visit Plan: Discussed that likely l umbar etiology for leg weakness Will change amlodopine to low dose dyazide and see if helps legs and inner ear 09/24/2013 Appointment: Vikki Guaman WPtel: [address] [place] [address] FOLLOW UP 09/24/2013 Patient Education: Patient Medication Summary Completed 09/24/2013 Visit Plan: Ceftin and continue cla ritin/flonase Decrease amlodopine to 2.5mg q HS until fwup with Card due to weakness 05/31/2013 Appointment: Vikki Guaman WPtel: [address] [place] [address] ACUTE ILLNESS 05/31/2013 Patient Education: Patient Medication Summary Completed 05/31/2013 Appointment: Vikki Guaman WPtel: [address] [place] [address] US LAB 03/28/2013 Patient Education: Patient Medication Summary Completed 03/28/2013 Visit Plan: States she is having he r carotids "done" this Tuesday03/28/13 Return this week for fasting labs. CBC, CMP, TSH Free T4, Lipid Panel and HgbA1C. 03/26/2013 Appointment: Jessenia Francis WPtel: [address] [place] [address] ACUTE ILLNESS 03/26/2013 Patient Education: Patient Medication Summary Completed 03/26/2013 Visit Plan: Supportive care. Rest, Fluids, Tylenol prn fever or bodyaches. Notify if worsening symptoms. Ceftin 12/19/2012 Appointment: Jessenia Francis WPtel: [address] [place], [place] [phone] ACUTE ILLNESS 12/19/2012 Patient Education: Patient Medication Summary Completed 12/19/2012 Appointment: Vikki Guaman WPtel: [address] [place], [place] [phone] US BP CHECK 12/04/2012 Patient Education: Patient Medication Summary Completed 12/04/2012 Visit Plan: Continue increased dose of metoprolol Moniter BP at home BP check in 1wk Maevex refill to use prn 11/27/2012 Visit Plan: Continue increased dose of metoprolol Moniter BP at home BP check in 1wk 11/27/2012 Appointment: Vikki Guaman WPtel: [address] [place] [address] ER Follow UP 11/27/2012 Patient Education: Patient Medication Summary Completed 11/27/2012 Visit Plan: Restart flonase BID Use meclizine 25mg q HS Vestibular exercises Claritin 10mg q AM See ENT if doesn't resolve 10/04/2012 Appointment: Vikki Guaman WPtel: [address] [place] [address] ACUTE ILLNESS 10/04/2012 Patient Education: Patient Medication Summary Completed 10/04/2012 Visit Plan: Will continue to observ e 07/27/2012 Appointment: Vikki Guaman WPtel: [address] [place] [address] FOLLOW UP 07/27/2012 Patient Education: Patient Medication [...] ear recheck. 07/14/2012 Appointment: Evelyn Santos WPtel: [address] [place] [address] ACUTE ILLNESS 07/14/2012 Patient Education: Patient Medication Summary Completed 07/14/2012 Visit Plan: Decrease caffeine intak e Check Bilateral Mammogram with US of left breast 06/08/2012 Appointment: Vikki Guaman WPtel: [address] [place] [address] ACUTE ILLNESS 06/08/2012 Patient Education: Patient Medication Summary Completed 06/08/2012 Appointment: Alisia Campbell WPtel: [address] [place], [place] [phone] appt scheduled 04/06 ACUTE ILLNESS 04/10/2012 Appointment: Vikki Guaman WPtel: [address] [place], [place] [phone] LAB 02/23/2012 Patient Education: Patient Medication Summary [...] T4, HbA1C 02/22/2012 Appointment: Vikki Guaman WPtel: [address] [place], [place] [phone] FOLLOW UP 02/22/2012 Patient Education: Patient Medication Summary Completed 02/22/2012 Visit Plan: Continue carafate for 4 more weeks at current dose then decrease to BID for 2wks then q HS 12/28/2011 Appointment: Vikki Guaman WPtel: [address] [place], [place] [phone] FOLLOW UP 12/28/2011 Patient Education: Patient Medication Summary Completed 12/28/2011 Visit Plan: Continue omeprazole Add Carafate 1gm po q AC Add daily probiotic 12/15/2011 Appointment: Vikki Guaman WPtel: [address] [place], [place] [phone] ACUTE ILLNESS 12/15/2011 Patient Education: Patient Medication Summary Completed 12/15/2011 Appointment: Vikki Guaman WPtel: [address] [place], [place] [phone] [place] INJECTION 12/02/2011 Patient Education: Patient Medication Summary Completed 12/02/2011 Visit Plan: Diabetic Diet Accucheck s BID alternating times Hold onglyza and Januvia for now and continue diet and exercise and weight loss and monitsakshi BS Discussed hypoglycemia and snack of peanut butter and crackers with juice or milk 09/21/2011 Appointment: Vikki Guaman WPtel: [address] [place] [address] WORK IN 09/21/2011 Patient Education: Patient Medication Summary Completed 09/21/2011 Appointment: Vikki Guaman WPtel: [address] [place], [place] [phone] UA 09/16/2011 Patient Education: Patient Medication Summary Completed 09/16/2011 Appointment: Vikki Guaman WPtel: [address] [place] [address] LAB 09/15/2011 Patient Education: Patient Medication Summary Completed 09/15/2011 Visit Plan: Fasting lab to check CM P, Lipids, CBC, TSH, Free T4, HbA1C, Insulin level Hold Zocor for next 2wks 09/13/2011 Appointment: Vikki Guaman WPtel: [address] [place] [address] ACUTE ILLNESS 09/13/2011 Patient Education: Patient Medication Summary Completed 09/13/2011 Visit Plan: Injection to Right SI j oint as above Pt will call in 3 days on pain Has PT starting in 2wks. 08/16/2011 Appointment: Vikki Guaman WPtel: [address] [place] [address] ACUTE ILLNESS 08/16/2011 Patient Education: Patient Medication Summary Completed 08/16/2011 Visit Plan: OMT done Start PT May n eed updated MRI if need to consider epidural Prednisone 08/03/2011 Appointment: Vikki Guaman WPtel: [address] [place] [address] OMT 08/03/2011 Patient Education: Patient Medication Summary Completed 08/03/2011 Visit Plan: Flexeril and Vimovo OMT done Daily stretches 07/26/2011 Appointment: Vikki Guaman WPtel: [address] [place] [address] ACUTE ILLNESS 07/26/2011 Patient Education: Patient Medication Summary Completed 07/26/2011 Visit Plan: OMT done Daily stretche s Moist heat or biofreeze Right SI joint injection Call in 1week Vimovo BID 06/28/2011 Appointment: Vikki Guamantel: [address] [place], [place] [phone] ACUTE ILLNESS 06/28/2011 Patient Education: Patient Medication Summary Completed 06/28/2011 Appointment: Vikki Guaman WPtel: [address] [place], [place] [phone] [place] LAB 04/01/2011 Patient Education: Patient Medication Summary Completed 04/01/2011 Visit Plan: Decrease amlodopine to 1.25mg daily Schedule with Cardiology Fasting lab in AM 03/31/2011 Appointment: Vikki Guaman WPtel: [address] [place] [address] ACUTE ILLNESS 03/31/2011 Patient Education: Patient Medication Summary Completed 03/31/2011 Visit Plan: Saline nasal flushes pr n. Tylenol/Motrin prn headache. Notify if persists/symptoms worsening. Cerumen removal from ears as above 02/11/2011 Appointment: Vikki Guaman WPtel: [address] [place], [place] [phone] ACUTE ILLNESS 02/11/2011 Patient Education: Patient Medication Summary Completed 02/11/2011 Appointment: Vikki Guaman WPtel: [address] [place], [place] [phone] [place] INJECTION 12/09/2010 Patient Education: Patient Medication Summary Completed 12/09/2010 Visit Plan: Continue vimovo for 1mo re week Increase Omeprazole to BID for 1mo then resume QD if stomach improved Vestibular exercises with meclizine q HS for next week 10/15/2010 Appointment: Vikki Guaman WPtel: [address] [place] [address] FOLLOW UP 10/15/2010 Patient Education: Patient Medication Summary Completed 10/15/2010 Visit Plan: Trial of Vimovo 50/200m g po BID Check UA 09/29/2010 Appointment: Vikki Guaman WPtel: [address] [place] [address] ACUTE ILLNESS 09/29/2010 Patient Education: Patient Medication Summary Completed 09/29/2010 Appointment: Vikki Guaman WPtel: [address] [place] [address] LAB 07/06/2010 Patient Education: Patient Medication Summary Completed 07/06/2010 Visit Plan: Saline nasal flushes pr n. Tylenol/Motrin prn headache. Notify if persists/symptoms worsening. Add Veramyst Increase Omeprazole to 20mg po BID 07/02/2010 Appointment: Vikki Guaman WPtel: [address] [place] [address] ACUTE ILLNESS 07/02/2010 Patient Education: Patient Medication Summary Completed 07/02/2010 Visit Plan: Injection to right SI j oint as above Continue Vimovo Daily stretches Pt will call at end of week to let us know how back is doing 04/06/2010 Appointment: Vikki Guaman WPtel: [address] [place] [address] FOLLOW UP 04/06/2010 Patient Education: Patient Medication Summary Completed 04/06/2010 Visit Plan: Toradol 30mg IM now x1 Vimovo 200/50 po BID Decrease Norvasc to 1/2 tablet daily Increase Lexaprol to 10mg QD 04/01/2010 Appointment: Vikki Guaman WPtel: [address] [place] [address] ACUTE ILLNESS 04/01/2010 Patient Education: Patient Medication Summary Completed 04/01/2010 Visit Plan: Nasocourt sample given. Pt. will notify if symptoms are worse on Tuesday. 01/22/2010 Appointment: Alisia Campbell WPtel: [address] [place] [address] ACUTE ILLNESS 01/22/2010 Patient Education: Patient Medication Summary Completed 01/22/2010 Appointment: Vikki Guaman WPtel: [address] [place], [place] [phone] [place] INJECTION 12/10/2009 Patient Education: Patient Medication Summary Completed 12/10/2009 Visit Plan: Cipro for UTI Cont [place] pro at 5mg QD Flu shot next week 12/02/2009 Appointment: Vikki Guaman WPtel: [address] [place], [place] [phone] FOLLOW UP 12/02/2009 Patient Education: Patient Medication [...] with surgery 10/21/2009 Appointment: Vikki Guaman WPtel: [address] [place], [place] [phone] FOLLOW UP 10/21/2009 Patient Education: Patient Medication Summary Completed 10/21/2009 Visit Plan: B12 given Cont oral B12 and iron Fwup 1mo for B12 Proceed with hiatal hernia repair once card clearance 09/10/2009 Appointment: Vikki Guamantel: [address] [place], [place] [phone] FOLLOW UP 09/10/2009 Patient Education: Patient Medication Summary Completed 09/10/2009 Visit Plan: No caffeine, no nicotin e, no mints, no late meals, elevate HOB 30 degrees Cont. with Nexium See Card to discuss Hiatal Hernia Repair B12 given 08/11/2009 Appointment: Vikki Guaman WPtel: [address] [place], [place] [phone] FOLLOW UP 08/11/2009 Patient Education: Patient Medication Summary Completed 08/11/2009 [facility]ment[phone] [facility] 06/10/2009 Patient Education: Patient Medication Summary Completed 06/10/2009 Visit Plan: Check fasting lab in AM --CMP,Lipids, CBC, Vit D, TSH,FreeT4, B12 06/09/2009 Appointment: Vik[facility]aman [facility]el[phone] [facility] 06/09/2009 Patient Education: Patient Medication Summary Completed 06/09/2009 Referral: Edy Cheek WPtel: #1 [facility] Referral Appointment Requested Referral: Edy Cheek WPtel: #1 [facility] [id number] Referral Initiated Instructions Comment . ERx for Augmentin 875mg q12 x 10 days and Floxin otic drops 5 gtts AD x7days Sample of Nasonex per pt request Discussed treatment (nasal saline, salt water gargles, keeping right ear clean and dry, for worsening go to [facility] on weekend, Tylenol/ibuprofen, etc.) RTC 2 weeks for ear recheck. . Check fasting lab in AM--CMP,Lipids, CBC, Vit D, TSH,FreeT4, B12 . Been using baclofe n at bedtime and has helped some PT for next 2-4weeks . Saline nasal flus hes prn. Tylenol/Motrin prn headache. Notify if persists/symptoms worsening. Cerumen removal from ears as above . B12 given Cont oral B12 and iron Fwup 1mo for B12 Proceed with hiatal hernia repair once card clearance . States she is havi ng her carotids "done" this Tuesday03/28/13 Return this week for fasting labs. CBC, CMP, TSH Free T4, Lipid Panel and HgbA1C. . Continue omeprazol e Add Carafate 1gm po q AC Add daily probiotic . Continue aspirin d aily Add meloxicam for 1week [facility] Call on Tuesday . Add miralax daily Use daily probiotic and metamucil and push fluids Notify if worsens/persists . Continue increased dose of metoprolol Moniter [...] 5mg QD Flu shot next week . Will continue to o bserve . [...] Complete prednisone 20 mg PO bid . Saline nasal flush es prn. Tylenol/Motrin [...] for removal of right arm lesion . Continue off caraf ate and see [...]
--- OUTSIDE RECORDS SUMMARY | 2019-04-25 20:56 | XMS REPORT | CCD ---
Author Author Evelyne Guaman D.O. 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 PP Unavailable CCM Unavailable Summary Purpose Interface Exchange Insurance Providers Payer name Policy type / Coverage type Covered alliance party ID Effective Begin Date Effective End Date WPS MEDICARE PART B [place] Medicare Part B [id number] 2017 Unknown Aetna [facility] Medicare Part B [id number] Unknown Family history Father Diagnosis Age At Onset Heart disease Unknown Mother Diagnosis Age At Onset Heart disease Unknown Cancer Unknown Social History Social History Element Codes Description Effective Dates Tobacco history SNOMED CT: 370855087 Never smoker 09/29/2010 Marital status Unknown S [...] Codes Condition Status Onset Date Resolved Date Coronary atheroscler osis due to calcified coronary [...] 11/22/2017 Unknown 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 [...] Condition Codes Effectiv e Dates Condition Status Coronary atheroscler osis due to calcified coronary [...] 11/22/2017 Active 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 [...] Date Stop Date Sta tus Fill Instructions simvastatin 40 mg ta blet RxNorm: 058775 1 Tablet(s) PO QD 10/23/2018 01/20/2019 Active simvastatin 40 mg ta blet RxNorm: 126638 1 Tablet(s) PO QD 07/24/2018 10/21/2018 Inactive omeprazole 40 mg cap steven,delayed release RxNorm: 055259 1 Capsule(s) PO QD 07/13/2018 11/09/2018 Ac tive simvastatin 40 mg ta blet RxNorm: 421231 1 Tablet(s) PO QD 06/13/2018 07/12/2018 Inactive omeprazole 40 mg cap steven,delayed release RxNorm: 533743 1 Capsule(s) PO QD 06/13/2018 07/12/2018 In active Bactrim DS 800 mg-16 0 mg tablet RxNorm: 176701 1 Tablet(s) PO BID 05/12/2018 05/18/2018 Inactive Bactrim DS 800 mg-16 0 mg tablet RxNorm: 877011 1 Tablet(s) PO BID 05/12/2018 05/11/2018 Inactive metoprolol tartrate 25 mg tablet RxNorm: 088506 1 Tablet(s) PO BID 05/10/2018 11/05/2018 Active Macrobid 100 mg capsule RxNorm: 851765 1 Capsule(s) PO BID 05/10/2018 05/16/2018 Inactive Xanax 0.25 mg tablet RxNorm: 576860 TAKE 1 TABLET BY MOUTH TWICE DAILY 02/16/2018 No Stop Date Active Xanax 0.25 mg tablet RxNorm: 787497 1 Tablet(s) PO BID 02/14/2018 02/16/2018 Inactive Protonix 40 mg table t,delayed release RxNorm: 188575 1 Tablet(s) PO BID fo r stomach--replaces omeprazole 01/10/2018 05/09/2018 Inactive Carafate 1 gram tablet RxNorm: 109804 1 Tablet(s) PO AC & HS 01/10/2018 05/09/2018 Inactive Xanax 0.25 mg tablet RxNorm: 429447 1 Tablet(s) PO BID 01/03/2018 02/13/2018 Inactive Bactrim DS 800 mg-16 0 mg tablet RxNorm: 299801 1 Tablet(s) PO BID 12/08/2017 12/12/2017 Inactive Bactrim DS 800 mg-16 0 mg tablet RxNorm: 440222 1 Tablet(s) PO BID 12/08/2017 12/07/2017 Inactive Carafate 1 gram tablet RxNorm: 145690 1 Tablet(s) PO AC & HS 11/22/2017 12/21/2017 Inactive Protonix 40 mg table t,delayed release RxNorm: 715076 1 Tablet(s) PO BID fo r stomach--replaces omeprazole 11/22/2017 01/09/2018 Inactive Protonix 40 mg table t,delayed release RxNorm: 741002 1 Tablet(s) PO BID fo r stomach--replaces omeprazole 10/20/2017 11/21/2017 Inactive fluticasone 50 mcg/a ctuation nasal spray,suspension RxNorm: 5418962 2 Excello NASAL QD to each nostril 07/07/2017 08/13/2018 Inactive Nasonex 50 mcg/actua tion Excello RxNorm: 1169530 2 Excello NASAL 07/07/2017 07/07/2017 Inactive omeprazole 40 mg cap steven,delayed release RxNorm: 761857 1 Capsule(s) PO QD 04/18/2017 10/19/2017 In active simvastatin 40 mg ta blet RxNorm: 464261 1 Tablet(s) PO QD MALISSA E 1 TABLET EVERY DAY 04/18/2017 04/12/2018 In active metoprolol tartrate 25 mg tablet RxNorm: 122553 1/2 Tablet(s) PO QD 04/18/2017 01/09/2018 Inactive simvastatin 40 mg ta blet RxNorm: 995547 Tablet(s) TAKE 1 TABL ET EVERY DAY 10/27/2016 04/17/2017 In active metoprolol tartrate 25 mg tablet RxNorm: 618657 1/2 Tablet(s) PO QD 09/20/2016 03/18/2017 Inactive Flonase 50 mcg/actua tion nasal spray,suspension RxNorm: 6608655 2 Excello NASAL BID 09/20/2016 04/17/2017 In active omeprazole 40 mg cap steven,delayed release RxNorm: 843506 1 Capsule(s) PO QD 09/08/2016 04/17/2017 In active metoprolol tartrate 25 mg tablet RxNorm: 913265 1/2 Tablet(s) PO QD 06/14/2016 09/19/2016 Inactive ciprofloxacin 0.2 % ear drops in a dropperette RxNorm: 842994 4 Drop(s) OTIC TID fo r 1 week 02/06/2016 05/11/2016 Inactive cefdinir 300 mg capsule RxNorm: 002950 2 Capsule(s) PO QD 02/06/2016 02/15/2016 Inactive omeprazole 40 mg cap steven,delayed release RxNorm: 022802 TAKE 1 CAPSULE EVERY DAY 11/06/2015 09/08/2016 In active simvastatin 40 mg ta blet RxNorm: 014163 TAKE 1 TABLET EVERY DAY 10/08/2015 10/27/2016 Inactive Flonase 50 mcg/actua tion nasal spray,suspension RxNorm: 6675211 2 Excello NASAL BID 02/19/2015 09/19/2016 In active cefuroxime axetil 25 0 mg tablet RxNorm: 527239 1 Tablet(s) PO BID 11/21/2014 11/20/2014 Inactive cefuroxime axetil 25 0 mg tablet RxNorm: 059543 1 Tablet(s) PO BID 11/21/2014 11/27/2014 Inactive omeprazole 40 mg cap steven,delayed release RxNorm: 353239 1 Capsule(s) PO QD 10/09/2014 01/05/2015 In active meloxicam 7.5 mg tablet RxNorm: 755371 1 Tablet(s) PO QD 07/11/2014 08/09/2014 Inactive loratadine 10 mg tablet RxNorm: 132756 1 Tablet(s) PO QAM for allergies 10/17/2013 08/13/2018 In active Flonase 50 mcg/actua tion nasal spray,suspension RxNorm: 349785 2 Excello NASAL BID 10/17/2013 02/18/2015 In active prednisone 20 mg tablet RxNorm: 381122 2 Tablet(s) PO BID 10/17/2013 10/21/2013 Inactive Dyazide 37.5 mg-25 m g capsule RxNorm: 282481 1 Capsule(s) PO QAM 09/24/2013 10/16/2013 Inactive Ceftin 500 mg tablet RxNorm: 276644 1 Tablet(s) PO BID 05/31/2013 06/09/2013 Inactive Ceftin 500 mg tablet RxNorm: 661419 1 Tablet(s) PO BID 03/26/2013 04/04/2013 Inactive simvastatin 40 mg ta blet RxNorm: 694685 Tablet(s) PO TAKE ONE TABLET BY MOUTH EVERY DAY 03/26/2013 10/07/2015 Inactive metoprolol tartrate 25 mg tablet RxNorm: 647650 Tablet(s) PO TAKE ONE -HALF TABLET BY MOUTH EVERY DAY 03/26/2013 11/12/2014 Inactive Ceftin 500 mg tablet RxNorm: 354199 1 Tablet(s) PO BID 12/19/2012 12/28/2012 Inactive loratadine 10 mg tablet RxNorm: 783506 1 Tablet(s) PO QAM for allergies 10/04/2012 12/02/2012 In active omeprazole 20 mg cap steven,delayed release RxNorm: 484222 Capsule(s) PO TAKE ON E CAPSULE BY MOUTH TWICE DAILY 08/09/2012 10/08/2014 Inactive omeprazole 20 mg cap steven,delayed release RxNorm: 841492 1 Capsule(s) PO BID 08/09/2012 05/09/2018 In active Augmentin 875 mg-125 mg tablet RxNorm: 750079 1 Tablet(s) PO Q12H 07/14/2012 07/23/2012 Inactive Floxin Otic Drops 1 bottle Drops RxNorm: 5 Drop(s) OTIC BID 07/14/2012 07/20/2012 Inactive metoprolol tartrate 25 mg tablet RxNorm: 697828 Tablet(s) PO TAKE ONE -HALF TABLET BY MOUTH EVERY DAY 04/11/2012 03/25/2013 Inactive simvastatin 40 mg ta blet RxNorm: 962595 Tablet(s) PO TAKE ONE TABLET BY MOUTH EVERY DAY 04/11/2012 03/25/2013 Inactive lancets RxNorm: Misc Miscellaneous USE ONE TO CHECK GLUC OSE EVERY DAY 04/04/2012 05/09/2018 In active Carafate 1 gram tablet RxNorm: 221260 1 Tablet(s) PO AC & HS 02/22/2012 11/12/2014 Inactive Flagyl 500 mg tablet RxNorm: 815404 1 Tablet(s) PO TID 12/15/2011 12/21/2011 Inactive Carafate 1 gram tablet RxNorm: 507572 1 Tablet(s) PO AC & HS 12/15/2011 02/12/2012 Inactive One Touch Test strips RxNorm: Miscellaneous QD 09/21/2011 05/09/2018 Inactive one touch ultra mini test strips Protonix 40 mg Tab RxNorm: 107535 1 Tablet(s) PO QD 09/13/2011 09/12/2011 Inactive Protonix 40 mg Tab RxNorm: 307529 1 Tablet(s) PO QD 09/13/2011 12/14/2011 Inactive prednisone 20 mg Tab RxNorm: 412355 1 Tablet(s) PO BID 08/03/2011 08/09/2011 Inactive Flexeril 5 mg Tab RxNorm: 465722 1 Tablet(s) PO QHS for spasm 07/26/2011 08/24/2011 Inactive Flexeril 5 mg Tab RxNorm: 521140 1 Tablet(s) PO QHS for spasm 06/28/2011 07/25/2011 Inactive amlodipine 2.5 mg Tab RxNorm: 588502 1/2 Tablet(s) PO QD replaces 5mg dose 03/31/2011 06/27/2011 In active simvastatin 40 mg ta blet RxNorm: 582441 1 Tablet(s) PO QD 03/31/2011 03/24/2012 Inactive metoprolol tartrate 25 mg tablet RxNorm: 857200 1/2 Tablet(s) PO QD 03/31/2011 03/24/2012 Inactive omeprazole 20 mg cap steven,delayed release RxNorm: 790816 1 Capsule(s) PO BID 03/31/2011 09/12/2011 In active cefdinir 300 mg Cap RxNorm: 430199 2 Capsule(s) PO QD 02/11/2011 02/20/2011 Inactive simvastatin 40 mg Tab RxNorm: 505684 1 Tablet(s) PO QD 02/01/2011 03/30/2011 Inactive metoprolol tartrate 25 mg Tab RxNorm: 733676 1/2 Tablet(s) PO QD 12/29/2010 03/30/2011 Inactive metoprolol tartrate 25 mg Tab RxNorm: 989680 1/2 Tablet(s) PO QD 12/28/2010 12/28/2010 Inactive meclizine 25 mg Tab RxNorm: 1675164 1 Tablet(s) PO QHS 10/15/2010 11/13/2010 Inactive for dizziness Ceftin 500 mg Tab RxNorm: 014140 1 Tablet(s) PO BID 07/02/2010 07/11/2010 Inactive omeprazole 20 mg Cap , Delayed Release RxNorm: 057540 1 Capsule(s) PO BID 07/02/2010 12/28/2010 In active simvastatin 40 mg Tab RxNorm: 228087 1 Tablet(s) PO QD 06/30/2010 05/09/2018 Inactive simvastatin 40 mg Tab RxNorm: 701945 1 Tablet(s) PO QD 06/30/2010 01/25/2011 Inactive simvastatin 40 mg Tab RxNorm: 595342 1 Tablet(s) PO QD 02/25/2010 06/30/2010 Inactive Tessalon Perles 100 mg Cap RxNorm: 661130 1 Capsule(s) PO Q6-8H 01/22/2010 01/28/2010 Inactive cefdinir 300 mg Cap RxNorm: 397500 1 Capsule(s) PO BID 01/22/2010 01/31/2010 Inactive Lexapro 10 mg Tab RxNorm: 998000 1 Tablet(s) PO QD 12/02/2009 01/30/2010 Inactive Cipro 250 mg Tab RxNorm: 567071 1 Tablet(s) PO BID 12/02/2009 12/08/2009 Inactive Wellbutrin XL 150 mg 24 hr Tab RxNorm: 657428 1 Tablet(s) PO QAM 06/09/2009 08/07/2009 Inactive Fish Oil 1,000 mg Cap RxNorm: 1 Capsule(s) PO QD No Start Date Active Tylenol Extra Streng th 500 mg tablet RxNorm: 831267 1/2 Tablet(s) PO as n eeded No Start Date Active nitroglycerin 0.4 mg sublingual tablet RxNorm: 615558 Tablet(s) SL as neede d No Start Date Active Calcium with Vitamin D 600 mg (1,500 mg)-400 unit tablet RxNorm: 805437 1 Tablet(s) PO QD No Start Date Active Multivitamin & [place] al Formula Tab RxNorm: 1 Tablet(s) PO QD No Start Date Active vitamin B complex ca psule RxNorm: 1 Capsule(s) PO QD No Start Date Active Aspirin 81 mg Tab RxNorm: 431382 1 Tablet(s) PO QD No Start Date Active isosorbide mononitra te ER 30 mg tablet,extended release 24 hr RxNorm: 470649 1 Tablet(s) PO QHS No Start Date Active Vitamin D 1,000 unit Cap RxNorm: 581773 1 Capsule(s) PO QD No Start Date Active Co Q-10 oral RxNorm: 92049 oral No Start Date Active Flonase Allergy Reli ef 50 mcg/actuation nasal spray,suspension RxNorm: 9160530 2 Excello NASAL QHS No Start Date Active metoprolol tartrate 25 mg Tab RxNorm: 590592 1/2 Tablet(s) PO QD No Start Date 12/27/2010 Inactive Nasonex 50 mcg/actua tion Excello RxNorm: 7877848 2 Excello NASAL No Start Date 07/06/2017 Inactive Vitamin B12 1000mcg Tablet RxNorm: 1 Tablet(s) PO QD No Start Date 11/12/2014 Inactive amlodipine 5 mg Tab RxNorm: 570597 1 Tablet(s) PO QD No Start Date 03/30/2011 Inactive simvastatin 40 mg ta blet RxNorm: 421398 1 Tablet(s) PO QD No Start Date 06/12/2018 Inactive omeprazole 20 mg cap steven,delayed release RxNorm: 472153 1 Capsule(s) PO BID No Start Date 08/08/2012 Inactive omeprazole 40 mg cap steven,delayed release RxNorm: 217529 1 Capsule(s) PO QD No Start Date 06/12/2018 Inactive Nexium 40 mg Cap RxNorm: 798204 1 Capsule(s) PO QD No Start Date 01/21/2010 Inactive Stool Softener 100 m g Tab RxNorm: 9855882 2 Tablet(s) PO BID No Start Date 03/30/2011 Inactive Calcium with Vitamin D 600 mg (1,500 mg)-400 unit Tab RxNorm: 486194 1 Tablet(s) PO QD No Start Date 11/12/2014 Inactive iron 325 mg (65 mg i yajaira) Tab RxNorm: 061404 1 Tablet(s) PO QD No Start Date 11/12/2014 Inactive Flonase 50 mcg/actua tion Nasal Excello RxNorm: 160585 2 Excello NASAL BID No Start Date 10/16/2013 Inactive fluticasone 50 mcg/a ctuation nasal spray,suspension RxNorm: 4486707 2 Excello NASAL QD to each nostril No Start Date 07/06/2017 Inactive Nasonex 50 mcg/actua tion Excello RxNorm: 7665735 2 Excello NASAL QD No Start Date 07/06/2017 Inactive hydralazine 50 mg ta blet RxNorm: 622902 1 Tablet(s) PO as nee ded for BP over 160/90 No Start Date 11/21/2017 Inactive Vimovo 500 mg-20 mg 12 hr Tab RxNorm: 256563 1 Tablet(s) PO BID No Start Date 02/10/2011 Inactive Tylenol PM 25 mg-500 mg/15 mL Oral Soln RxNorm: 6601363 1 PO QPM No Start Date 11/12/2014 Inactive Iron (Ferrous Sulfat e) Oral RxNorm: Oral No Start D ate 03/30/2011 Inactive Reglan 10 mg Tab RxNorm: 870525 1 Tablet(s) PO TID before meals No Start Date 02/10/2011 Inactive Xanax 1 mg Tab RxNorm: 010255 1/2 Tablet(s) PO QD No Start Date 11/21/2017 Inactive amlodipine 10 mg tablet RxNorm: 100971 1 Tablet(s) PO QD No Start Date 09/23/2013 Inactive Iron (dried) Oral RxNorm: Oral No Start Date 03/30/2011 Inactive metoprolol tartrate 50 mg tablet RxNorm: 582513 1 Tablet(s) PO BID No Start Date 02/13/2018 Inactive Xanax 0.25 mg tablet RxNorm: 182845 1 Tablet(s) PO BID No Start Date 01/02/2018 Inactive lancets RxNorm: Miscellaneous check blood sugar at least once daily No Start Date 04/03/2012 Inactive simvastatin 40 mg Tab RxNorm: 937161 1 Tablet(s) PO QD No Start Date 02/24/2010 Inactive isosorbide mononitra te ER 30 mg tablet,extended release 24 hr RxNorm: 838819 1 Tablet(s) PO QHS No Start Date 08/13/2018 Inactive amlodipine 2.5 mg ta blet RxNorm: 529606 1 Tablet(s) PO QD No Start Date 09/23/2013 Inactive sucralfate 1 gram ta blet RxNorm: 730532 1 Tablet(s) PO QID No Start Date 05/09/2018 Inactive Fish Oil Oral RxNorm: Oral No Start Date 03/31/2011 Inactive Multiple Vitamin Oral RxNorm: Oral No Start Date 03/31/2011 Inactive metoprolol tartrate 25 mg tablet RxNorm: 952773 1/2 Tablet(s) PO QD No Start Date 06/13/2016 Inactive metoprolol tartrate 50 mg tablet RxNorm: 146648 1/2 Tablet(s) PO BID No Start Date 05/09/2018 Inactive Medication Administered No Medication Administered data Immunizations Vaccine Codes Date Status Influenza CVX: 135 11/22 completed Influenza CVX: 135 12/10 completed Influenza CVX: 135 12/11 completed Influenza CVX: 135 12/20 completed Influenza CVX: 141 11/27 completed Influenza (Adult) CVX: 141 12/10/2009 completed Assessments Condition Codes Effectiv e Dates Urinary tract infection, site not specified ICD-10: [...] ICD-9: 300.00 01/10/2018 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 While at [facility] began to feel very ill and became [...] Item Item Code Result Date GFR CALC 5824743 GFR Non Afr Amr 48 mL/min 08/14/2018 GFR CALC 9508768 GFR Afr Amr 59 mL/min 08/14/2018 THYROID STIMULATING HORMONE 02109 TSH 1.936 uIU/mL 9 COMPREHENSIVE METABOLIC 03778 AST 18 U/L 08/14/2018 COMPREHENSIVE METABOLIC 01343 ALT 11 U/L 08/14/2018 COMPREHENSIVE METABOLIC 08923 BUN 18 mg/dL 08/14/2018 COMPREHENSIVE METABOLIC 58671 ALBUMIN 4.2 g/dL 08/14/2018 COMPREHENSIVE METABOLIC 12381 CHLORIDE 109 mmol/L 08/14/2018 COMPREHENSIVE METABOLIC 51110 Bili Total 0.4 mg/dL 08/14/2018 COMPREHENSIVE METABOLIC 45589 ALK PHOS 64 U/L 08/14/2018 COMPREHENSIVE METABOLIC 27431 SODIUM 142 mmol/L 08/14/2018 COMPREHENSIVE METABOLIC 79858 CREATININE 1.09 mg/dL 08/14/2018 COMPREHENSIVE METABOLIC 11336 CALCIUM 9.3 mg/dL 08/14/2018 COMPREHENSIVE METABOLIC 53720 POTASSIUM 4.7 mmol/L 08/14/2018 COMPREHENSIVE METABOLIC 37885 Total Protein 6.3 g/dL 08/14/2018 COMPREHENSIVE METABOLIC 20722 Glucose 84 mg/dL 08/14/2018 COMPREHENSIVE METABOLIC 77183 Bicarbonate 25 mmol/L 08/14/2018 COMPREHENSIVE METABOLIC 55835 AGAP 8 mmol/L 08/14/2018 COMPLETE BLOOD COUNT 1052264 WBC 7.8 10e9/L 08/14/2018 COMPLETE BLOOD COUNT [id number] RBC 4.04 10e12/L 9 COMPLETE BLOOD COUNT 7638348 HEMOGLOBIN 12.2 g/dL 08/14/2018 COMPLETE BLOOD COUNT 9689486 HEMATOCRIT 38.6 % 08/14/2018 COMPLETE BLOOD COUNT [id number] MCV 95.5 fL 08/14/2018 COMPLETE BLOOD COUNT 0445978 MCH 30.2 pg 08/14/2018 COMPLETE BLOOD COUNT 1584095 MCHC 31.6 g/dL 08/14/2018 COMPLETE BLOOD COUNT 9989171 PLATELET COUNT 215 10e9/L 08/14/2018 COMPLETE BLOOD COUNT 7708947 Mean Plt Volume 11.2 fL 08/14/2018 COMPLETE BLOOD COUNT [id number] Neut Auto 45.7 % 08/14/2018 COMPLETE BLOOD COUNT 8901064 Lymph Auto 42.1 % 08/14/2018 COMPLETE BLOOD COUNT [id number] [place] Auto 9.2 % 08/14/2018 COMPLETE BLOOD COUNT [id number] RDW 13.4 % 08/14/2018 COMPLETE BLOOD COUNT 6149162 Eos Auto 2.7 % 08/14/2018 COMPLETE BLOOD COUNT 3169937 Baso Auto 0.3 % 08/14/2018 COMPLETE BLOOD COUNT 6847305 Neutrophil Abs 3.56 10e9/L 08/14/2018 COMPLETE BLOOD COUNT [id number] Lymphocyte Abs 3.28 10e9/L 08/14/2018 COMPLETE BLOOD COUNT 8195805 Monocyte Abs 0.72 10e9/L 08/14/2018 COMPLETE BLOOD COUNT 1587645 Eosinophil Abs 0.21 10e9/L 08/14/2018 COMPLETE BLOOD COUNT 1000422 RDW-SD 44.9 fL 08/14/2018 COMPLETE BLOOD COUNT [id number] Basophil Abs 0.02 10e9/L 08/14/2018 COMPLETE BLOOD COUNT 2787623 WBC 5.2 10e9/L 11/30/2017 COMPLETE BLOOD COUNT 8784879 RBC 4.21 10e12/L 8 COMPLETE BLOOD COUNT 2693957 HEMOGLOBIN 12.8 g/dL 11/30/2017 COMPLETE BLOOD COUNT 1885431 HEMATOCRIT 39.0 % 11/30/2017 COMPLETE BLOOD COUNT [id number] MCV 92.6 fL 11/30/2017 COMPLETE BLOOD COUNT [id number] MCH 30.4 pg 11/30/2017 COMPLETE BLOOD COUNT 3763417 MCHC 32.8 g/dL 11/30/2017 COMPLETE BLOOD COUNT 9756396 PLATELET COUNT 202 10e9/L 11/30/2017 COMPLETE BLOOD COUNT 5082089 Mean Plt Volume 10.7 fL 11/30/2017 COMPLETE BLOOD COUNT 8370760 Neut Auto 40.9 % 11/30/2017 COMPLETE BLOOD COUNT 5730797 Lymph Auto 46.3 % 11/30/2017 COMPLETE BLOOD COUNT 3533721 [place] Auto 9.3 % 11/30/2017 COMPLETE BLOOD COUNT 2772655 RDW 13.7 % 11/30/2017 COMPLETE BLOOD COUNT 9584014 Eos Auto 2.9 % 11/30/2017 COMPLETE BLOOD COUNT 0973215 Baso Auto 0.6 % 11/30/2017 COMPLETE BLOOD COUNT 2328180 Neutrophil Abs 2.13 10e9/L 11/30/2017 COMPLETE BLOOD COUNT [id number] Lymphocyte Abs 2.41 10e9/L 11/30/2017 COMPLETE BLOOD COUNT 9451705 Monocyte Abs 0.48 10e9/L 11/30/2017 COMPLETE BLOOD COUNT [id number] Eosinophil Abs 0.15 10e9/L 11/30/2017 COMPLETE BLOOD COUNT 1813004 RDW-SD 45.2 fL 11/30/2017 COMPLETE BLOOD COUNT [id number] Basophil Abs 0.03 10e9/L 11/30/2017 [place] [address] Glucose 118 mg/dL 11/30/2017 [place] [address] CREATININE 1.01 mg/dL 11/30/2017 [place] [address] BUN 14 mg/dL 11/30/2017 [place] [address] SODIUM 141 mmol/L 11/30/2017 [place] [address] POTASSIUM 4.0 mmol/L 11/30/2017 [place] [address] CHLORIDE 108 mmol/L 11/30/2017 [place] [address] Bicarbonate 25 mmol/L 11/30/2017 [place] [address] AGAP 8 mmol/L 11/30/2017 [place] [address] CALCIUM 9.6 mg/dL 11/30/2017 FREE T4 44564 T4 Free 1.23 ng/dL 11/30/2017 GFR CALC 0996284 GFR Non Afr Amr 53 mL/min 11/30/2017 GFR CALC 5782285 GFR Afr Amr >60 mL/min 11/30/2017 THYROID STIMULATING HORMONE 53003 TSH 2.124 uIU/mL 8 [facility] 38127 Choles terol 152 mg/dL 09/28/2017 LIP[facility] GROUP 73031 Trigly ceride 151 mg/dL 09/28/2017 [facility] 79302 HDL CH OLESTEROL 47 mg/dL 09/28/2017 [facility] 30156 Chol/H DL Ratio 3.23 ratio 09/28/2017 LIP[facility] GROUP 92507 NON-HD L Chol 105 mg/dL 09/28/2017 L[facility] GROUP 42209 LDL Ch olesterol 75 mg/dL 09/28/2017 ASSAY OF TROPONIN QUANT 30901 Troponin-I <0.30 ng/mL 09/27/2017 COMPREHENSIVE METABOLIC 33763 AST 20 U/L 09/27/2017 COMPREHENSIVE METABOLIC 05739 ALT 14 U/L 09/27/2017 COMPREHENSIVE METABOLIC 72843 BUN 19 mg/dL 09/27/2017 COMPREHENSIVE METABOLIC 39753 ALBUMIN 4.2 g/dL 09/27/2017 COMPREHENSIVE METABOLIC 61173 CHLORIDE 102 mmol/L 09/27/2017 COMPREHENSIVE METABOLIC 90655 Bili Total 0.4 mg/dL 09/27/2017 COMPREHENSIVE METABOLIC 73203 ALK PHOS 66 U/L 09/27/2017 COMPREHENSIVE METABOLIC 42362 SODIUM 135 mmol/L 09/27/2017 COMPREHENSIVE METABOLIC 41845 CREATININE 1.01 mg/dL 09/27/2017 COMPREHENSIVE METABOLIC 27670 CALCIUM 9.3 mg/dL 09/27/2017 COMPREHENSIVE METABOLIC 41562 POTASSIUM 4.8 mmol/L 09/27/2017 COMPREHENSIVE METABOLIC 73297 Total Protein 7.0 g/dL 09/27/2017 COMPREHENSIVE METABOLIC 12509 Glucose 91 mg/dL 09/27/2017 COMPREHENSIVE METABOLIC 18562 Bicarbonate 23 mmol/L 09/27/2017 COMPREHENSIVE METABOLIC 43107 AGAP 10 mmol/L 09/27/2017 COMPLETE BLOOD COUNT 6463356 WBC 7.5 10e9/L 09/27/2017 COMPLETE BLOOD COUNT 8180885 RBC 4.13 10e12/L 8 COMPLETE BLOOD COUNT 2204200 HEMOGLOBIN 12.6 g/dL 09/27/2017 COMPLETE BLOOD COUNT 2614180 HEMATOCRIT 38.4 % 09/27/2017 COMPLETE BLOOD COUNT 3722472 MCV 93.0 fL 09/27/2017 COMPLETE BLOOD COUNT 5327636 MCH 30.5 pg 09/27/2017 COMPLETE BLOOD COUNT 1751767 MCHC 32.8 g/dL 09/27/2017 COMPLETE BLOOD COUNT 5879216 PLATELET COUNT 204 10e9/L 09/27/2017 COMPLETE BLOOD COUNT 4487631 Mean Plt Volume 10.9 fL 09/27/2017 COMPLETE BLOOD COUNT 1749671 Neut Auto 43.1 % 09/27/2017 COMPLETE BLOOD COUNT 3117236 Lymph Auto 45.0 % 09/27/2017 COMPLETE BLOOD COUNT 8798723 [place] Auto 9.2 % 09/27/2017 COMPLETE BLOOD COUNT 8259224 RDW 13.4 % 09/27/2017 COMPLETE BLOOD COUNT 7230572 Eos Auto 2.3 % 09/27/2017 COMPLETE BLOOD COUNT 4572459 Baso Auto 0.4 % 09/27/2017 COMPLETE BLOOD COUNT 6544577 Neutrophil Abs 3.23 10e9/L 09/27/2017 COMPLETE BLOOD COUNT 2947153 Lymphocyte Abs 3.38 10e9/L 09/27/2017 COMPLETE BLOOD COUNT 2949099 Monocyte Abs 0.69 10e9/L 09/27/2017 COMPLETE BLOOD COUNT 9053155 Eosinophil Abs 0.17 10e9/L 09/27/2017 COMPLETE BLOOD COUNT [id number] Basophil Abs 0.03 10e9/L 09/27/2017 COMPLETE BLOOD COUNT 3614599 RDW-SD 44.4 fL 09/27/2017 GFR CALC 2762442 GFR Non Afr Amr 53 mL/min 09/27/2017 GFR CALC 8939350 GFR Afr Amr >60 mL/min 09/27/2017 GLYCOSYLATED HEMOGLOBIN TEST 80467 Hgb A1c 40887-8 5.4 % 09/27/2017 MEAN GLUC 6308958 Calc M steven Gluc 108 mg/dL 09/27/2017 MEAN GLUC 2550488 Calc M steven Gluc 114 mg/dL 11/01/2016 LIPID GROUP 70716 Choles terol 146 mg/dL 11/01/2016 LIPID GROUP 03939 Trigly ceride 119 mg/dL 11/01/2016 LIPID GROUP 86416 HDL CH OLESTEROL 47 mg/dL 11/01/2016 LIPID GROUP 48579 Chol/H DL Ratio 3.11 ratio 11/01/2016 LIPID GROUP 44233 NON-HD L Chol 99 mg/dL 11/01/2016 LIPID GROUP 62409 LDL Ch olesterol 75 mg/dL 11/01/2016 GLYCOSYLATED HEMOGLOBIN TEST 79022 Hgb A1c 60149-0 5.6 % 11/01/2016 COMPREHENSIVE METABOLIC 36341 AST 22 U/L 11/01/2016 COMPREHENSIVE METABOLIC 09802 ALT 12 U/L 11/01/2016 COMPREHENSIVE METABOLIC 77156 BUN 17 mg/dL 11/01/2016 COMPREHENSIVE METABOLIC 67026 ALBUMIN 4.0 g/dL 11/01/2016 COMPREHENSIVE METABOLIC 81889 CHLORIDE 110 mmol/L 11/01/2016 COMPREHENSIVE METABOLIC 56509 Bili Total 0.4 mg/dL 11/01/2016 COMPREHENSIVE METABOLIC 74490 ALK PHOS 63 U/L 11/01/2016 COMPREHENSIVE METABOLIC 63613 SODIUM 140 mmol/L 11/01/2016 COMPREHENSIVE METABOLIC 34815 CREATININE 1.05 mg/dL 11/01/2016 COMPREHENSIVE METABOLIC 23927 CALCIUM 9.2 mg/dL 11/01/2016 COMPREHENSIVE METABOLIC 47683 POTASSIUM 4.2 mmol/L 11/01/2016 COMPREHENSIVE METABOLIC 34181 Total Protein 6.2 g/dL 11/01/2016 COMPREHENSIVE METABOLIC 15450 Glucose 87 mg/dL 11/01/2016 COMPREHENSIVE METABOLIC 76964 Bicarbonate 24 mmol/L 11/01/2016 COMPREHENSIVE METABOLIC 82981 AGAP 6 mmol/L 11/01/2016 GFR CALC 6464922 GFR Non Afr Amr 51 mL/min 11/01/2016 GFR CALC 2981614 GFR Afr Amr >60 mL/min 11/01/2016 COMPLETE BLOOD COUNT 4312636 WBC 6.7 10e9/L 11/01/2016 COMPLETE BLOOD COUNT 0947549 RBC 4.04 10e12/L 7 COMPLETE BLOOD COUNT 2274026 HEMOGLOBIN 12.1 g/dL 11/01/2016 COMPLETE BLOOD COUNT 7591241 HEMATOCRIT 38.0 % 11/01/2016 COMPLETE BLOOD COUNT 0438895 MCV 94.1 fL 11/01/2016 COMPLETE BLOOD COUNT 7729777 MCH 30.0 pg 11/01/2016 COMPLETE BLOOD COUNT 1494765 MCHC 31.8 g/dL 11/01/2016 COMPLETE BLOOD COUNT 3392045 PLATELET COUNT 206 10e9/L 11/01/2016 COMPLETE BLOOD COUNT 9779414 Mean Plt Volume 11.3 fL 11/01/2016 COMPLETE BLOOD COUNT [id number] Neut Auto 35.8 % 11/01/2016 COMPLETE BLOOD COUNT [id number] Lymph Auto 51.6 % 11/01/2016 COMPLETE BLOOD COUNT 6655157 [place] Auto 8.8 % 11/01/2016 COMPLETE BLOOD COUNT 6451030 RDW 13.5 % 11/01/2016 COMPLETE BLOOD COUNT 1298350 Eos Auto 3.4 % 11/01/2016 COMPLETE BLOOD COUNT 8697583 Baso Auto 0.4 % 11/01/2016 COMPLETE BLOOD COUNT 0082361 Neutrophil Abs 2.40 10e9/L 11/01/2016 COMPLETE BLOOD COUNT 8737711 Lymphocyte Abs 3.46 10e9/L 11/01/2016 COMPLETE BLOOD COUNT 2891152 Monocyte Abs 0.59 10e9/L 11/01/2016 COMPLETE BLOOD COUNT 1210636 Eosinophil Abs 0.23 10e9/L 11/01/2016 COMPLETE BLOOD COUNT 8314038 RDW-SD 45.3 fL 11/01/2016 COMPLETE BLOOD COUNT 1842506 Basophil Abs 0.03 10e9/L 11/01/2016 THYROID STIMULATING HORMONE 20569 TSH 1.981 uIU/mL 7 COMPLETE BLOOD COUNT 8188867 WBC 6.0 10e9/L 05/13/2016 COMPLETE BLOOD COUNT 1154071 RBC 4.29 10e12/L 7 COMPLETE BLOOD COUNT 2582246 HEMOGLOBIN 12.9 g/dL 05/13/2016 COMPLETE BLOOD COUNT 7614513 HEMATOCRIT 38.4 % 05/13/2016 COMPLETE BLOOD COUNT 6859954 MCV 89.5 fL 05/13/2016 COMPLETE BLOOD COUNT 5954843 MCH 30.1 pg 05/13/2016 COMPLETE BLOOD COUNT 2646422 MCHC 33.6 g/dL 05/13/2016 COMPLETE BLOOD COUNT 5123960 PLATELET COUNT 181 10e9/L 05/13/2016 COMPLETE BLOOD COUNT 0931357 Mean Plt Volume 11.7 fL 05/13/2016 COMPLETE BLOOD COUNT 4721486 Neut Auto 36.9 % 05/13/2016 COMPLETE BLOOD COUNT 5966521 Lymph Auto 50.4 % 05/13/2016 COMPLETE BLOOD COUNT 9050855 [place] Auto 9.0 % 05/13/2016 COMPLETE BLOOD COUNT 8464034 RDW 13.7 % 05/13/2016 COMPLETE BLOOD COUNT 0649435 Eos Auto 3.4 % 05/13/2016 COMPLETE BLOOD COUNT 9459393 Baso Auto 0.3 % 05/13/2016 COMPLETE BLOOD COUNT 6115524 Neutrophil Abs 2.21 10e9/L 05/13/2016 COMPLETE BLOOD COUNT 6695551 Lymphocyte Abs 3.02 10e9/L 05/13/2016 COMPLETE BLOOD COUNT 4309219 Monocyte Abs 0.54 10e9/L 05/13/2016 COMPLETE BLOOD COUNT 5461815 Eosinophil Abs 0.20 10e9/L 05/13/2016 COMPLETE BLOOD COUNT 0501241 RDW-SD 44.0 fL 05/13/2016 COMPLETE BLOOD COUNT 5088722 Basophil Abs 0.02 10e9/L 05/13/2016 GLYCOSYLATED HEMOGLOBIN TEST 01081 Hgb A1c 76892-8 5.4 % 05/13/2016 THYROID STIMULATING HORMONE 19518 TSH 2.200 uIU/mL 7 GFR CALC 3379157 GFR Non Afr Amr 50 mL/min 05/13/2016 GFR CALC 1698938 GFR Afr Amr >60 mL/min 05/13/2016 MEAN GLUC 9829678 Calc M steven Gluc 108 mg/dL 05/13/2016 COMPREHENSIVE METABOLIC 47677 AST 18 U/L 05/13/2016 COMPREHENSIVE METABOLIC 66488 ALT 10 U/L 05/13/2016 COMPREHENSIVE METABOLIC 69950 BUN 20 mg/dL 05/13/2016 COMPREHENSIVE METABOLIC 10837 ALBUMIN 4.1 g/dL 05/13/2016 COMPREHENSIVE METABOLIC 23346 CHLORIDE 109 mmol/L 05/13/2016 COMPREHENSIVE METABOLIC 06939 Bili Total 0.6 mg/dL 05/13/2016 COMPREHENSIVE METABOLIC 30126 ALK PHOS 64 U/L 05/13/2016 COMPREHENSIVE METABOLIC 68483 SODIUM 141 mmol/L 05/13/2016 COMPREHENSIVE METABOLIC 39057 CREATININE 1.06 mg/dL 05/13/2016 COMPREHENSIVE METABOLIC 24344 CALCIUM 9.9 mg/dL 05/13/2016 COMPREHENSIVE METABOLIC 78801 POTASSIUM 4.2 mmol/L 05/13/2016 COMPREHENSIVE METABOLIC 00690 Total Protein 6.3 g/dL 05/13/2016 COMPREHENSIVE METABOLIC 77752 Glucose 99 mg/dL 05/13/2016 COMPREHENSIVE METABOLIC 72768 Bicarbonate 21 mmol/L 05/13/2016 COMPREHENSIVE METABOLIC 31660 AGAP 11 mmol/L 05/13/2016 LIPID GROUP 46659 Choles terol 169 mg/dL 11/25/2015 LIPID GROUP 17728 Trigly ceride 165 mg/dL 11/25/2015 LIPID GROUP 33156 HDL CH OLESTEROL 43 mg/dL 11/25/2015 LIPID GROUP 23564 Chol/H DL Ratio 3.93 ratio 11/25/2015 LIPID GROUP 12065 NON-HD L Chol 126 mg/dL 11/25/2015 LIPID GROUP 06170 LDL Ch olesterol 93 mg/dL 11/25/2015 COMPREHENSIVE METABOLIC 31665 AST 18 U/L 11/25/2015 COMPREHENSIVE METABOLIC 74395 ALT 10 U/L 11/25/2015 COMPREHENSIVE METABOLIC 69287 BUN 20 mg/dL 11/25/2015 COMPREHENSIVE METABOLIC 82479 ALBUMIN 3.9 g/dL 11/25/2015 COMPREHENSIVE METABOLIC 26109 CHLORIDE 110 mmol/L 11/25/2015 COMPREHENSIVE METABOLIC 77569 Bili Total 0.5 mg/dL 11/25/2015 COMPREHENSIVE METABOLIC 33805 ALK PHOS 72 U/L 11/25/2015 COMPREHENSIVE METABOLIC 39760 SODIUM 141 mmol/L 11/25/2015 COMPREHENSIVE METABOLIC 82604 CREATININE 1.12 mg/dL 11/25/2015 COMPREHENSIVE METABOLIC 26959 CALCIUM 9.7 mg/dL 11/25/2015 COMPREHENSIVE METABOLIC 75816 POTASSIUM 4.4 mmol/L 11/25/2015 COMPREHENSIVE METABOLIC 31281 Total Protein 6.2 g/dL 11/25/2015 COMPREHENSIVE METABOLIC 34345 Glucose 90 mg/dL 11/25/2015 COMPREHENSIVE METABOLIC 81411 Bicarbonate 23 mmol/L 11/25/2015 COMPREHENSIVE METABOLIC 59858 AGAP 8 mmol/L 11/25/2015 GFR CALC 1914997 GFR Non Afr Amr 47 mL/min 11/25/2015 GFR CALC 3647869 GFR Afr Amr 57 mL/min 11/25/2015 GLYCOSYLATED HEMOGLOBIN TEST 74762 Hgb A1c 37600-5 5.5 % 11/25/2015 THYROID STIMULATING HORMONE 65976 TSH 2.537 uIU/mL 6 FREE T4 23381 T4 Free 1.36 ng/dL 11/25/2015 COMPLETE BLOOD COUNT 0172766 WBC 6.8 10e9/L 11/25/2015 COMPLETE BLOOD COUNT 4164482 RBC 4.20 10e12/L 6 COMPLETE BLOOD COUNT 6704439 HEMOGLOBIN 12.5 g/dL 11/25/2015 COMPLETE BLOOD COUNT 3205646 HEMATOCRIT 38.0 % 11/25/2015 COMPLETE BLOOD COUNT 4215484 MCV 90.5 fL 11/25/2015 COMPLETE BLOOD COUNT 5587158 MCH 29.8 pg 11/25/2015 COMPLETE BLOOD COUNT 0815755 MCHC 32.9 g/dL 11/25/2015 COMPLETE BLOOD COUNT 9781794 PLATELET COUNT 197 10e9/L 11/25/2015 COMPLETE BLOOD COUNT 0068908 Mean Plt Volume 11.7 fL 11/25/2015 COMPLETE BLOOD COUNT 5246462 Neut Auto 41.3 % 11/25/2015 COMPLETE BLOOD COUNT 3457539 Lymph Auto 47.1 % 11/25/2015 COMPLETE BLOOD COUNT 8327948 [place] Auto 7.8 % 11/25/2015 COMPLETE BLOOD COUNT 5929808 RDW 13.8 % 11/25/2015 COMPLETE BLOOD COUNT 9534539 Eos Auto 3.4 % 11/25/2015 COMPLETE BLOOD COUNT 2414524 Baso Auto 0.4 % 11/25/2015 COMPLETE BLOOD COUNT 9400816 Neutrophil Abs 2.81 10e9/L 11/25/2015 COMPLETE BLOOD COUNT 8508010 Lymphocyte Abs 3.20 10e9/L 11/25/2015 COMPLETE BLOOD COUNT 3467700 Monocyte Abs 0.53 10e9/L 11/25/2015 COMPLETE BLOOD COUNT 0747367 Eosinophil Abs 0.23 10e9/L 11/25/2015 COMPLETE BLOOD COUNT 9724355 RDW-SD 44.4 fL 11/25/2015 COMPLETE BLOOD COUNT 0156450 Basophil Abs 0.03 10e9/L 11/25/2015 MEAN GLUC 3088041 Calc M steven Gluc 111 mg/dL 11/25/2015 [place] [address] Glucose 89 MG/DL 02/19/2015 [place] [address] CREATININE 1.12 MG/DL 02/19/2015 [place] [address] BUN 20 MG/DL 02/19/2015 [place] [address] SODIUM 139 MMOL/L 02/19/2015 [place] [address] POTASSIUM 4.6 MMOL/L 02/19/2015 [place] [address] CHLORIDE 108 MMOL/L 02/19/2015 [place] [address] BICARB 26 MMOL/L 02/19/2015 [place] [address] ANION GAP 5 MEQ/L 02/19/2015 [place] [address] CALCIUM 10.0 MG/DL 02/19/2015 GFR CALC 7922070 GFR AA 57.0L ML/MIN 02/19/2015 GFR CALC 6682071 GFR NON -AA 47.0L ML/MIN 5 THYROID STIMULATING HORMONE 87857 TSH 2.378 uIU/ML 5 COMPLETE BLOOD COUNT 9411191 WBC 6.4 10e9/L 11/14/2014 COMPLETE BLOOD COUNT 1408688 RBC 3.99 10e12/L 5 COMPLETE BLOOD COUNT 0350278 HGB 11.9 g/dL 11/14/2014 COMPLETE BLOOD COUNT 8271745 HCT DET 36.9 % 11/14/2014 COMPLETE BLOOD COUNT 9552635 MCV 92.5 fL 11/14/2014 COMPLETE BLOOD COUNT 5599920 MCH 29.8 pg 11/14/2014 COMPLETE BLOOD COUNT 2617126 MCHC 32.2 g/dL 11/14/2014 COMPLETE BLOOD COUNT 8742346 PLT 172 10e9/L 11/14/2014 COMPLETE BLOOD COUNT 3132411 MPV 11.7 fL 11/14/2014 COMPLETE BLOOD COUNT 0301466 C[place]TH[place] % 40.4 % 11/14/2014 COMPLETE BLOOD COUNT 3912950 LY % 48.0 % 11/14/2014 COMPLETE BLOOD COUNT 5839195 MON % 8.3 % 11/14/2014 COMPLETE BLOOD COUNT 6198906 EOS % 2.8 % 11/14/2014 COMPLETE BLOOD COUNT 9910918 BASO % 0.5 % 11/14/2014 COMPLETE BLOOD COUNT 2748094 RDW 13.6 % 11/14/2014 COMPLETE BLOOD COUNT 6139633 ABS CINTHYA 2.59 10e9/L 11/14/2014 COMPLETE BLOOD COUNT 3567795 ABS LYMPH 3.07 10e9/L 11/14/2014 COMPLETE BLOOD COUNT 1899099 ABS MONO 0.53 10e9/L 11/14/2014 COMPLETE BLOOD COUNT 6883954 ABS EOS 0.18 10e9/L 11/14/2014 COMPLETE BLOOD COUNT 4676360 ABS BASO 0.03 10e9/L 11/14/2014 COMPLETE BLOOD COUNT 9388659 RDW-SD 44.9 fL 11/14/2014 LIPID GROUP [address] 42 MG/DL 11/14/2014 LIPID GROUP 05668 TRIG 177 MG/DL 11/14/2014 LIPID GROUP 31586 TEST L DL 72 MG/DL 11/14/2014 LIPID GROUP 69367 CHOL 149 MG/DL 11/14/2014 LIPID GROUP 79897 RCHOL/ HDL 3.55 RATIO 11/14/2014 LIPID GROUP 48696 NON-HD L CH 107 MG/DL 11/14/2014 GLYCOSYLATED HEMOGLOBIN TEST 92404 A1C HPLC 90937-5 5.5 % 11/14/2014 FREE T4 65899 FREE T4 1.39 NG/DL 11/14/2014 GFR CALC 1418102 GFR AA 55.0L ML/MIN 11/14/2014 GFR CALC 3949178 GFR NON -AA 46.0L ML/MIN 5 COMPREHENSIVE METABOLIC 81441 AST 17 U/L 11/14/2014 COMPREHENSIVE METABOLIC 80148 ALT 10 IU/L 11/14/2014 COMPREHENSIVE METABOLIC 12223 BUN 20 MG/DL 11/14/2014 COMPREHENSIVE METABOLIC 00570 ALBUMIN 3.9 GM/DL 11/14/2014 COMPREHENSIVE METABOLIC 44660 CHLORIDE 111 MMOL/L 11/14/2014 COMPREHENSIVE METABOLIC 01637 BILI TOT 0.4 MG/DL 11/14/2014 COMPREHENSIVE METABOLIC 82320 ALK PHOS 70 U/L 11/14/2014 COMPREHENSIVE METABOLIC 01696 SODIUM 142 MMOL/L 11/14/2014 COMPREHENSIVE METABOLIC 55879 CREATININE 1.16 MG/DL 11/14/2014 COMPREHENSIVE METABOLIC 19129 CALCIUM 9.4 MG/DL 11/14/2014 COMPREHENSIVE METABOLIC 03729 POTASSIUM 4.6 MMOL/L 11/14/2014 COMPREHENSIVE METABOLIC 41992 PROT TOT 6.2 GM/DL 11/14/2014 COMPREHENSIVE METABOLIC 86741 Glucose 90 MG/DL 11/14/2014 COMPREHENSIVE METABOLIC 57253 BICARB 24 MMOL/L 11/14/2014 COMPREHENSIVE METABOLIC 81013 ANION GAP 7 MEQ/L 11/14/2014 THYROID STIMULATING HORMONE 05523 TSH 2.427 uIU/ML 5 LIPID GROUP [address] 47 MG/DL 05/10/2014 LIPID GROUP 17111 TRIG 145 MG/DL 05/10/2014 LIPID GROUP 52062 TEST L DL 73 MG/DL 05/10/2014 LIPID GROUP 03905 CHOL 149 MG/DL 05/10/2014 LIPID GROUP 88011 RCHOL/ HDL 3.17 RATIO 05/10/2014 LIPID GROUP 48012 NON-HD L CH 102 MG/DL 05/10/2014 COMPREHENSIVE METABOLIC 77309 AST 17 U/L 05/10/2014 COMPREHENSIVE METABOLIC 97716 ALT 9 IU/L 05/10/2014 COMPREHENSIVE METABOLIC 36217 BUN 19 MG/DL 05/10/2014 COMPREHENSIVE METABOLIC 26805 ALBUMIN 4.3 GM/DL 05/10/2014 COMPREHENSIVE METABOLIC 07012 CHLORIDE 108 MMOL/L 05/10/2014 COMPREHENSIVE METABOLIC 03882 BILI TOT 0.5 MG/DL 05/10/2014 COMPREHENSIVE METABOLIC 72334 ALK PHOS 68 U/L 05/10/2014 COMPREHENSIVE METABOLIC 47504 SODIUM 140 MMOL/L 05/10/2014 COMPREHENSIVE METABOLIC 11941 CREATININE 1.08 MG/DL 05/10/2014 COMPREHENSIVE METABOLIC 15665 CALCIUM 9.9 MG/DL 05/10/2014 COMPREHENSIVE METABOLIC 68197 POTASSIUM 4.3 MMOL/L 05/10/2014 COMPREHENSIVE METABOLIC 26679 PROT TOT 7.2 GM/DL 05/10/2014 COMPREHENSIVE METABOLIC 37550 Glucose 94 MG/DL 05/10/2014 COMPREHENSIVE METABOLIC 47296 BICARB 26 MMOL/L 05/10/2014 COMPREHENSIVE METABOLIC 66032 ANION GAP 6 MEQ/L 05/10/2014 GFR CALC 2004860 GFR AA 60.0L ML/MIN 05/10/2014 GFR CALC 3459325 GFR NON -AA 49.0L ML/MIN 5 GLYCOSYLATED HEMOGLOBIN TEST 59339 A1C HPLC 06946-4 5.6 % 05/10/2014 COMPLETE BLOOD COUNT 3489116 WBC 7.2 10e9/L 05/10/2014 COMPLETE BLOOD COUNT 5178041 RBC 4.28 10e12/L 5 COMPLETE BLOOD COUNT 4006886 HGB 12.8 g/dL 05/10/2014 COMPLETE BLOOD COUNT 2067317 HCT DET 39.3 % 05/10/2014 COMPLETE BLOOD COUNT 0834208 MCV 91.8 fL 05/10/2014 COMPLETE BLOOD COUNT 9989320 MCH 29.9 pg 05/10/2014 COMPLETE BLOOD COUNT 3413934 MCHC 32.6 g/dL 05/10/2014 COMPLETE BLOOD COUNT 7966125 PLT 189 10e9/L 05/10/2014 COMPLETE BLOOD COUNT 8638220 MPV 11.2 fL 05/10/2014 COMPLETE BLOOD COUNT 6851715 [place] % 38.0 % 05/10/2014 COMPLETE BLOOD COUNT 9706575 LY % 51.0 % 05/10/2014 COMPLETE BLOOD COUNT 2603751 MON % 7.7 % 05/10/2014 COMPLETE BLOOD COUNT 3054674 EOS % 2.9 % 05/10/2014 COMPLETE BLOOD COUNT 1978353 BASO % 0.4 % 05/10/2014 COMPLETE BLOOD COUNT 5515044 RDW 14.0 % 05/10/2014 COMPLETE BLOOD COUNT 9894382 ABS CINTHYA 2.74 10e9/L 05/10/2014 COMPLETE BLOOD COUNT 1236101 ABS LYMPH 3.67 10e9/L 05/10/2014 COMPLETE BLOOD COUNT 1747049 ABS MONO 0.55 10e9/L 05/10/2014 COMPLETE BLOOD COUNT 5613586 ABS EOS 0.21 10e9/L 05/10/2014 COMPLETE BLOOD COUNT 9358527 ABS BASO 0.03 10e9/L 05/10/2014 COMPLETE BLOOD COUNT 3099519 RDW-SD 46.1 fL 05/10/2014 FREE T4 40122 FREE T4 1.14 NG/DL 05/10/2014 GLYCOSYLATED HEMOGLOBIN TEST 93727 A1C HPLC 72357-0 5.2 % 03/29/2013 FREE T4 05673 FREE T4 1.40 NG/DL 03/28/2013 GFR CALC 8989159 GFR AA >60 ML/MIN 03/28/2013 GFR CALC 8209247 GFR NON -AA 52.0L ML/MIN 4 COMPREHENSIVE METABOLIC 88806 AST 15 U/L 03/28/2013 COMPREHENSIVE METABOLIC 62722 ALT 9 IU/L 03/28/2013 COMPREHENSIVE METABOLIC 60957 BUN 17 MG/DL 03/28/2013 COMPREHENSIVE METABOLIC 40831 ALBUMIN 4.0 GM/DL 03/28/2013 COMPREHENSIVE METABOLIC 80847 CHLORIDE 112 MMOL/L 03/28/2013 COMPREHENSIVE METABOLIC 10172 BILI TOT 0.5 MG/DL 03/28/2013 COMPREHENSIVE METABOLIC 59567 ALK PHOS 66 U/L 03/28/2013 COMPREHENSIVE METABOLIC 97150 SODIUM 140 MMOL/L 03/28/2013 COMPREHENSIVE METABOLIC 73507 CREATININE 1.03 MG/DL 03/28/2013 COMPREHENSIVE METABOLIC 37491 CALCIUM 9.5 MG/DL 03/28/2013 COMPREHENSIVE METABOLIC 56877 POTASSIUM 4.1 MMOL/L 03/28/2013 COMPREHENSIVE METABOLIC 89650 PROT TOT 6.2 GM/DL 03/28/2013 COMPREHENSIVE METABOLIC 89347 Glucose 102 MG/DL 03/28/2013 COMPREHENSIVE METABOLIC 34460 BICARB 23 MMOL/L 03/28/2013 COMPREHENSIVE METABOLIC 93596 ANION GAP 5 MEQ/L 03/28/2013 THYROID STIMULATING HORMONE 83545 TSH 2.074 uIU/ML 4 VITAMIN B 12 FOLIC ACID 28263|65347 VIT B 12 423 PG/ML 03/28/2013 VITAMIN B 12 FOLIC ACID 15484|61974 FOLIC ACID 19.7 NG/ML 03/28/2013 LIPID GROUP [address] 40 MG/DL 03/28/2013 LIPID GROUP 25642 TRIG 145 MG/DL 03/28/2013 LIPID GROUP 76328 TEST L DL 81 MG/DL 03/28/2013 LIPID GROUP 40233 CHOL 150 MG/DL 03/28/2013 LIPID GROUP 93708 RCHOL/ HDL 3.75 RATIO 03/28/2013 COMPLETE BLOOD COUNT 5025294 WBC 6.0 10e9/L 03/28/2013 COMPLETE BLOOD COUNT 5875632 RBC 4.26 10e12/L 4 COMPLETE BLOOD COUNT 8881442 HGB 12.7 g/dL 03/28/2013 COMPLETE BLOOD COUNT 1008564 HCT DET 38.7 % 03/28/2013 COMPLETE BLOOD COUNT 0656524 MCV 90.8 fL 03/28/2013 COMPLETE BLOOD COUNT 8618277 MCH 29.8 pg 03/28/2013 COMPLETE BLOOD COUNT 2528711 MCHC 32.8 g/dL 03/28/2013 COMPLETE BLOOD COUNT 4611328 PLT 178 10e9/L 03/28/2013 COMPLETE BLOOD COUNT 9398649 MPV 11.7 fL 03/28/2013 COMPLETE BLOOD COUNT 8352854 [place] % 30.5 % 03/28/2013 COMPLETE BLOOD COUNT 4573265 LY % 55.4 % 03/28/2013 COMPLETE BLOOD COUNT 5081289 MON % 9.0 % 03/28/2013 COMPLETE BLOOD COUNT 8036946 EOS % 4.4 % 03/28/2013 COMPLETE BLOOD COUNT 5988990 BASO % 0.7 % 03/28/2013 COMPLETE BLOOD COUNT 2360316 RDW 13.3 % 03/28/2013 COMPLETE BLOOD COUNT 7826189 ABS CINTHYA 1.83 10e9/L 03/28/2013 COMPLETE BLOOD COUNT 0779850 ABS LYMPH 3.32 10e9/L 03/28/2013 COMPLETE BLOOD COUNT 1403163 ABS MONO 0.54 10e9/L 03/28/2013 COMPLETE BLOOD COUNT 3559109 ABS EOS 0.26 10e9/L 03/28/2013 COMPLETE BLOOD COUNT 6275663 ABS BASO 0.04 10e9/L 03/28/2013 COMPLETE BLOOD COUNT 5671558 RDW-SD 43.2 fL 03/28/2013 HEMOGLOBIN A1C (GLYCOSYLATED) 6090892 A1C [facility] 27138-2 5.5 % 02/24/2012 COMPLETE BLOOD COUNT 7920691 WBC 6.0 10e9/L 02/23/2012 COMPLETE BLOOD COUNT 1871660 RBC 4.22 10e12/L 2 COMPLETE BLOOD COUNT 1805857 HGB 12.4 g/dL 02/23/2012 COMPLETE BLOOD COUNT 2940570 HCT DET 38.2 % 02/23/2012 COMPLETE BLOOD COUNT 3992612 MCV 90.5 fL 02/23/2012 COMPLETE BLOOD COUNT 9765550 MCH 29.4 pg 02/23/2012 COMPLETE BLOOD COUNT 6338175 MCHC 32.5 g/dL 02/23/2012 COMPLETE BLOOD COUNT 7601600 PLT 187 10e9/L 02/23/2012 COMPLETE BLOOD COUNT 1428300 MPV 11.5 fL 02/23/2012 COMPLETE BLOOD COUNT 4450972 [place] % 36.4 % 02/23/2012 COMPLETE BLOOD COUNT 6302500 LY % 51.0 % 02/23/2012 COMPLETE BLOOD COUNT 0279913 MON % 8.7 % 02/23/2012 COMPLETE BLOOD COUNT 7595018 EOS % 3.2 % 02/23/2012 COMPLETE BLOOD COUNT 7401775 BASO % 0.7 % 02/23/2012 COMPLETE BLOOD COUNT 0735279 RDW 13.7 % 02/23/2012 COMPLETE BLOOD COUNT 4570602 ABS CINTHYA 2.18 10e9/L 02/23/2012 COMPLETE BLOOD COUNT 8534913 ABS LYMPH 3.06 10e9/L 02/23/2012 COMPLETE BLOOD COUNT 0011121 ABS MONO 0.52 10e9/L 02/23/2012 COMPLETE BLOOD COUNT 5923981 ABS EOS 0.19 10e9/L 02/23/2012 COMPLETE BLOOD COUNT 9674426 ABS BASO 0.04 10e9/L 02/23/2012 COMPLETE BLOOD COUNT 0652738 RDW-SD 44.3 fL 02/23/2012 LIPID GROUP [address] 42 MG/DL 02/23/2012 LIPID GROUP 91424 TRIG 156 MG/DL 02/23/2012 LIPID GROUP 91434 TEST L DL 80 MG/DL 02/23/2012 LIPID GROUP 11882 CHOL 153 MG/DL 02/23/2012 LIPID GROUP 31833 RCHOL/ HDL 3.64 RATIO 02/23/2012 FREE T4 25184 FREE T4 1.22 NG/DL 02/23/2012 COMPREHENSIVE METABOLIC 27574 AST 20 U/L 02/23/2012 COMPREHENSIVE METABOLIC 39095 ALT 11 IU/L 02/23/2012 COMPREHENSIVE METABOLIC 63573 BUN 19 MG/DL 02/23/2012 COMPREHENSIVE METABOLIC 14665 ALBUMIN 4.3 GM/DL 02/23/2012 COMPREHENSIVE METABOLIC 77580 CHLORIDE 109 MMOL/L 02/23/2012 COMPREHENSIVE METABOLIC 89196 BILI TOT 0.6 MG/DL 02/23/2012 COMPREHENSIVE METABOLIC 11750 ALK PHOS 84 U/L 02/23/2012 COMPREHENSIVE METABOLIC 06734 SODIUM 142 MMOL/L 02/23/2012 COMPREHENSIVE METABOLIC 34402 CREATININE 1.09 MG/DL 02/23/2012 COMPREHENSIVE METABOLIC 43773 CALCIUM 9.8 MG/DL 02/23/2012 COMPREHENSIVE METABOLIC 80078 POTASSIUM 4.2 MMOL/L 02/23/2012 COMPREHENSIVE METABOLIC 98152 PROT TOT 6.4 GM/DL 02/23/2012 COMPREHENSIVE METABOLIC 11405 Glucose 89 MG/DL 02/23/2012 COMPREHENSIVE METABOLIC 54987 BICARB 25 MMOL/L 02/23/2012 COMPREHENSIVE METABOLIC 34792 ANION GAP 8 MEQ/L 02/23/2012 GFR CALC 5521868 GFR AA 60.0L ML/MIN 02/23/2012 GFR CALC 2700152 GFR NON -AA 49.0L ML/MIN 2 THYROID STIMULATING HORMONE 97419 TSH 2.450 uIU/ML 2 COMPREHENSIVE METABOLIC 58657 AST 22 U/L 04/01/2011 COMPREHENSIVE METABOLIC 08320 ALT 14 IU/L 04/01/2011 COMPREHENSIVE METABOLIC 31309 BUN 21 MG/DL 04/01/2011 COMPREHENSIVE METABOLIC 68553 ALBUMIN 4.3 GM/DL 04/01/2011 COMPREHENSIVE METABOLIC 45062 CHLORIDE 106 MMOL/L 04/01/2011 COMPREHENSIVE METABOLIC 40405 BILI TOT 0.4 MG/DL 04/01/2011 COMPREHENSIVE METABOLIC 06630 ALK PHOS 80 U/L 04/01/2011 COMPREHENSIVE METABOLIC 79093 SODIUM 141 MMOL/L 04/01/2011 COMPREHENSIVE METABOLIC 23238 CREATININE 1.13 MG/DL 04/01/2011 COMPREHENSIVE METABOLIC 55120 CALCIUM 9.4 MG/DL 04/01/2011 COMPREHENSIVE METABOLIC 15785 POTASSIUM 4.3 MMOL/L 04/01/2011 COMPREHENSIVE METABOLIC 96834 PROT TOT 6.7 GM/DL 04/01/2011 COMPREHENSIVE METABOLIC 17037 Glucose 98 MG/DL 04/01/2011 COMPREHENSIVE METABOLIC 40567 BICARB 25 MMOL/L 04/01/2011 COMPREHENSIVE METABOLIC 35262 ANION GAP 10 MEQ/L 04/01/2011 LIPID GROUP [address] 44 MG/DL 04/01/2011 LIPID GROUP 92173 TRIG 164 MG/DL 04/01/2011 LIPID GROUP 36540 TEST L DL 98 MG/DL 04/01/2011 LIPID GROUP 38887 CHOL 175 MG/DL 04/01/2011 LIPID GROUP 03522 RCHOL/ HDL 3.98 RATIO 04/01/2011 COMPLETE BLOOD COUNT 92276 WBC 6.7 10e9/L 04/01/2011 COMPLETE BLOOD COUNT 05035 RBC 4.36 10e12/L 2 COMPLETE BLOOD COUNT 40576 HGB 12.9 g/dL 04/01/2011 COMPLETE BLOOD COUNT 87279 HCT DET 39.4 % 04/01/2011 COMPLETE BLOOD COUNT 41631 MCV 90.4 fL 04/01/2011 COMPLETE BLOOD COUNT 69042 MCH 29.6 pg 04/01/2011 COMPLETE BLOOD COUNT 69616 MCHC 32.7 g/dL 04/01/2011 COMPLETE BLOOD COUNT 51763 PLT 184 10e9/L 04/01/2011 COMPLETE BLOOD COUNT 19836 MPV 10.9 fL 04/01/2011 COMPLETE BLOOD COUNT 60189 CINTHYA % 41.5 % 04/01/2011 COMPLETE BLOOD COUNT 06273 LY % 45.7 % 04/01/2011 COMPLETE BLOOD COUNT 22218 MON % 9.4 % 04/01/2011 COMPLETE BLOOD COUNT 19816 EOS % 3.0 % 04/01/2011 COMPLETE BLOOD COUNT 02765 BASO % 0.4 % 04/01/2011 COMPLETE BLOOD COUNT 55993 RDW 13.2 % 04/01/2011 COMPLETE BLOOD COUNT 94498 ABS CINTHYA 2.78 10e9/L 04/01/2011 COMPLETE BLOOD COUNT 35470 ABS LYMPH 3.06 10e9/L 04/01/2011 COMPLETE BLOOD COUNT 64413 ABS MONO 0.63 10e9/L 04/01/2011 COMPLETE BLOOD COUNT 84477 ABS EOS 0.20 10e9/L 04/01/2011 COMPLETE BLOOD COUNT 24579 ABS BASO 0.03 10e9/L 04/01/2011 COMPLETE BLOOD COUNT 63603 RDW-SD 42.3 fL 04/01/2011 GFR CALC 0059660 GFR AA 57.0L ML/MIN 04/01/2011 GFR CALC 3589975 GFR NON -AA 47.0L ML/MIN 2 THYROID STIMULATING HORMONE 14365 TSH 2.663 uIU/ML 2 FREE T4 51654 FREE T4 1.15 NG/DL 04/01/2011 THYROID STIMULATING HORMONE 91581 TSH 1.908 uIU/ML 1 COMPLETE BLOOD COUNT 41734 WBC 6.4 10e9/L 07/06/2010 COMPLETE BLOOD COUNT 74262 RBC 3.92 10e12/L 1 COMPLETE BLOOD COUNT 01166 HGB 11.8 g/dL 07/06/2010 COMPLETE BLOOD COUNT 69488 HCT DET 36.0 % 07/06/2010 COMPLETE BLOOD COUNT 56789 MCV 91.8 fL 07/06/2010 COMPLETE BLOOD COUNT 21240 MCH 30.1 pg 07/06/2010 COMPLETE BLOOD COUNT 97910 MCHC 32.8 g/dL 07/06/2010 COMPLETE BLOOD COUNT 83961 PLT 176 10e9/L 07/06/2010 COMPLETE BLOOD COUNT 75644 MPV 11.4 fL 07/06/2010 COMPLETE BLOOD COUNT 22417 CINTHYA % 50.4 % 07/06/2010 COMPLETE BLOOD COUNT 80647 LY % 35.5 % 07/06/2010 COMPLETE BLOOD COUNT 63852 MON % 10.2 % 07/06/2010 COMPLETE BLOOD COUNT 63026 EOS % 3.3 % 07/06/2010 COMPLETE BLOOD COUNT 75055 BASO % 0.6 % 07/06/2010 COMPLETE BLOOD COUNT 88272 RDW 13.7 % 07/06/2010 COMPLETE BLOOD COUNT 63373 ABS CINTHYA 3.23 10e9/L 07/06/2010 COMPLETE BLOOD COUNT 90583 ABS LYMPH 2.27 10e9/L 07/06/2010 COMPLETE BLOOD COUNT 50263 ABS MONO 0.65 10e9/L 07/06/2010 COMPLETE BLOOD COUNT 40979 ABS EOS 0.21 10e9/L 07/06/2010 COMPLETE BLOOD COUNT 94989 ABS BASO 0.04 10e9/L 07/06/2010 COMPLETE BLOOD COUNT 41381 RDW-SD 45.3 fL 07/06/2010 GFR CALC 4542792 GFR AA >60 ML/MIN 07/06/2010 GFR CALC 8507925 GFR NON -AA 53.0L ML/MIN 1 FREE T4 63369 FREE T4 1.20 NG/DL 07/06/2010 COMPREHENSIVE METABOLIC 55516 AST 17 U/L 07/06/2010 COMPREHENSIVE METABOLIC 90339 ALT 9 IU/L 07/06/2010 COMPREHENSIVE METABOLIC 23617 BUN 16 MG/DL 07/06/2010 COMPREHENSIVE METABOLIC 63517 ALBUMIN 4.0 GM/DL 07/06/2010 COMPREHENSIVE METABOLIC 73796 CHLORIDE 108 MMOL/L 07/06/2010 COMPREHENSIVE METABOLIC 41696 BILI TOT 0.5 MG/DL 07/06/2010 COMPREHENSIVE METABOLIC 40956 ALK PHOS 76 U/L 07/06/2010 COMPREHENSIVE METABOLIC 01626 SODIUM 139 MMOL/L 07/06/2010 COMPREHENSIVE METABOLIC 14482 CREATININE 1.02 MG/DL 07/06/2010 COMPREHENSIVE METABOLIC 51607 CALCIUM 9.2 MG/DL 07/06/2010 COMPREHENSIVE METABOLIC 61730 POTASSIUM 4.5 MMOL/L 07/06/2010 COMPREHENSIVE METABOLIC 27551 PROT TOT 6.1 GM/DL 07/06/2010 COMPREHENSIVE METABOLIC 04808 Glucose 93 MG/DL 07/06/2010 COMPREHENSIVE METABOLIC 19026 BICARB 26 MMOL/L 07/06/2010 COMPREHENSIVE METABOLIC 07315 ANION GAP 5 MEQ/L 07/06/2010 LIPID GROUP [address] 46 MG/DL 07/06/2010 LIPID GROUP 29130 TRIG 102 MG/DL 07/06/2010 LIPID GROUP 55297 TEST L DL 88 MG/DL 07/06/2010 LIPID GROUP 97145 CHOL 154 MG/DL 07/06/2010 LIPID GROUP 90990 RCHOL/ HDL 3.35 RATIO 07/06/2010 Review of Systems System Result Effective Dates Cardiovascular arrhythmia 08/14/2018 Cardiovascular No chest pain/pressure [...] - General Neurologic mental status Overall: alert 08/17/201 0 None Full Exam - General Cardiovascular [...] Procedures Procedure Codes Date ROUTINE VENIPUNCTURE CPT-4: 81155 08/14/2018 ASSAY THYROID STIM H ORMONE CPT-4: 30250 08/14/2018 COMPREHEN METABOLIC PANEL CPT-4: 06172 08/14/2018 COMPLETE CBC W/AUTO DIFF WBC CPT-4: 25451 08/14/2018 URINALYSIS NONAUTO W /O SCOPE CPT-4: 27353 05/10/2018 URINE CULTURE/ COLON Y COUNT CPT-4: 61009 05/10/2018 URINE CULTURE/ COLON Y COUNT CPT-4: 12744 12/06/2017 ROUTINE VENIPUNCTURE CPT-4: 98986 11/30/2017 ASSAY OF FREE THYROXINE CPT-4: 56023 11/30/2017 ASSAY THYROID STIM H ORMONE CPT-4: 01483 11/30/2017 COMPLETE CBC W/AUTO DIFF WBC CPT-4: 28138 11/30/2017 METABOLIC PANEL TOTA L CA CPT-4: 12511 11/30/2017 FLU VACC PRSV FREE I NC ANTIG 65 AND OLDER CPT-4: 85076 11/22/2017 ASSAY, GLUCOSE, BLOO D QUANT CPT-4: 80364 11/22/2017 ADMIN INFLUENZA VIRU S VAC CPT-4: G0008 11/22/2017 ROUTINE VENIPUNCTURE CPT-4: 71962 09/27/2017 COMPREHEN METABOLIC PANEL CPT-4: 77079 09/27/2017 COMPLETE CBC W/AUTO DIFF WBC CPT-4: 31061 09/27/2017 A1C HPLC CPT-4: 70229 09/27/2017 ASSAY OF TROPONIN QUANT CPT-4: 03264 09/27/2017 LIPID PANEL CPT-4: 83801 09/27/2017 THER/PROPH/DIAG INJ SC/IM CPT-4: 78291 05/30/2017 TRIAMCINOLONE ACET I [place] NOS CPT-4: J3301 05/30/2017 URINALYSIS NONAUTO W /O SCOPE CPT-4: 31362 04/18/2017 URINE CULTURE/ COLON Y COUNT CPT-4: 34737 04/18/2017 FLU VACC PRSV FREE I NC ANTIG 65 AND OLDER CPT-4: 27336 12/10/2016 ADMIN INFLUENZA VIRU S VAC CPT-4: G0008 12/10/2016 ROUTINE VENIPUNCTURE CPT-4: 10706 11/01/2016 COMPREHEN METABOLIC PANEL CPT-4: 99404 11/01/2016 COMPLETE CBC W/AUTO DIFF WBC CPT-4: 82291 11/01/2016 LIPID PANEL CPT-4: 20690 11/01/2016 A1C HPLC CPT-4: 29394 11/01/2016 ASSAY THYROID STIM H ORMONE CPT-4: 74623 11/01/2016 ROUTINE VENIPUNCTURE CPT-4: 95637 05/13/2016 ASSAY THYROID STIM H ORMONE CPT-4: 16134 05/13/2016 COMPREHEN METABOLIC PANEL CPT-4: 34783 05/13/2016 COMPLETE CBC W/AUTO DIFF WBC CPT-4: 42648 05/13/2016 A1C HPLC CPT-4: 78902 05/13/2016 FLU VACC PRSV FREE I NC ANTIG 65 AND OLDER CPT-4: 21431 12/12/2015 ADMIN INFLUENZA VIRU S VAC CPT-4: G0008 12/12/2015 ROUTINE VENIPUNCTURE CPT-4: 39841 11/25/2015 ASSAY OF FREE THYROXINE CPT-4: 74094 11/25/2015 ASSAY THYROID STIM H ORMONE CPT-4: 27951 11/25/2015 COMPREHEN METABOLIC PANEL CPT-4: 81836 11/25/2015 COMPLETE CBC W/AUTO DIFF WBC CPT-4: 49760 11/25/2015 LIPID PANEL CPT-4: 98750 11/25/2015 A1C HPLC CPT-4: 11453 11/25/2015 URINALYSIS NONAUTO W /O SCOPE CPT-4: 27362 05/21/2015 ROUTINE VENIPUNCTURE CPT-4: 07181 02/19/2015 METABOLIC PANEL TOTA L CA CPT-4: 55777 02/19/2015 PRESCRIP TRANSMIT A ERX SY CPT-4: G8553 02/19/2015 FLU VACC PRSV FREE I NC ANTIG 65 AND OLDER CPT-4: 35129 12/20/2014 ADMIN INFLUENZA VIRU S VAC CPT-4: G0008 12/20/2014 URINALYSIS NONAUTO W /O SCOPE CPT-4: 84159 11/19/2014 URINE CULTURE/ COLON Y COUNT CPT-4: 11105 11/19/2014 ROUTINE VENIPUNCTURE CPT-4: 00551 11/14/2014 ASSAY OF FREE THYROXINE CPT-4: 65736 11/14/2014 ASSAY THYROID STIM H ORMONE CPT-4: 08783 11/14/2014 COMPREHEN METABOLIC PANEL CPT-4: 41729 11/14/2014 COMPLETE CBC W/AUTO DIFF WBC CPT-4: 90065 11/14/2014 LIPID PANEL CPT-4: 56693 11/14/2014 A1C HPLC CPT-4: 10618 11/14/2014 CERUM REMOVAL CPT-4: 60714 09/27/2014 PRESCRIP TRANSMIT A ERX SY CPT-4: G8553 07/11/2014 FLUZONE, 5ML (Medicare) CPT-4: Q2038 12/21/2013 ADMIN INFLUENZA VIRU S VAC CPT-4: G0008 12/21/2013 PRESCRIP TRANSMIT A ERX SY CPT-4: G8553 10/17/2013 PRESCRIP TRANSMIT A ERX SY CPT-4: G8553 09/24/2013 PRESCRIP TRANSMIT A ERX SY CPT-4: G8553 05/31/2013 ROUTINE VENIPUNCTURE CPT-4: 28661 03/28/2013 ASSAY OF FREE THYROXINE CPT-4: 92026 03/28/2013 ASSAY THYROID STIM H ORMONE CPT-4: 09028 03/28/2013 COMPREHEN METABOLIC PANEL CPT-4: 31550 03/28/2013 COMPLETE CBC W/AUTO DIFF WBC CPT-4: 32815 03/28/2013 LIPID PANEL CPT-4: 35421 03/28/2013 A1C HPLC CPT-4: 31315 03/28/2013 VITAMIN B 12 FOLIC ACID CPT-4: 92559|73219 03/28/2013 PRESCRIP TRANSMIT A ERX SY CPT-4: G8553 03/26/2013 PRESCRIP TRANSMIT A ERX SY CPT-4: G8553 12/19/2012 FLUZONE, 5ML (Medicare) CPT-4: Q2038 11/27/2012 ADMIN INFLUENZA VIRU S VAC CPT-4: G0008 11/27/2012 PRESCRIP TRANSMIT A ERX SY CPT-4: G8553 10/04/2012 PRESCRIP TRANSMIT A ERX SY CPT-4: G8553 07/14/2012 ROUTINE VENIPUNCTURE CPT-4: 76371 02/23/2012 ASSAY OF FREE THYROXINE CPT-4: 23543 02/23/2012 ASSAY THYROID STIM H ORMONE CPT-4: 43265 02/23/2012 COMPREHEN METABOLIC PANEL CPT-4: 56709 02/23/2012 COMPLETE CBC W/AUTO DIFF WBC CPT-4: 25368 02/23/2012 LIPID PANEL CPT-4: 88629 02/23/2012 A1C GLYCOSYLATED HEM OGLOBIN TEST CPT-4: 06586 02/23/2012 CERUM REMOVAL CPT-4: 38128 02/22/2012 PRESCRIP TRANSMIT A ERX SY CPT-4: G8553 02/22/2012 PRESCRIP TRANSMIT A ERX SY CPT-4: G8553 12/15/2011 FLUZONE, 5ML (Medicare) CPT-4: Q2038 12/02/2011 ADMIN INFLUENZA VIRU S VAC CPT-4: G0008 12/02/2011 ASSAY, GLUCOSE, BLOO D QUANT CPT-4: 23264 09/21/2011 URINALYSIS NONAUTO W /O SCOPE CPT-4: 75076 09/16/2011 URINE CULTURE/ COLON Y COUNT CPT-4: 77295 09/16/2011 ROUTINE VENIPUNCTURE CPT-4: 36195 09/15/2011 ASSAY OF FREE THYROXINE CPT-4: 60673 09/15/2011 ASSAY THYROID STIM H ORMONE CPT-4: 34396 09/15/2011 COMPREHEN METABOLIC PANEL CPT-4: 29666 09/15/2011 COMPLETE CBC W/AUTO DIFF WBC CPT-4: 11849 09/15/2011 LIPID PANEL CPT-4: 73830 09/15/2011 ASSAY OF INSULIN CPT-4: 44479 09/15/2011 A1C GLYCOSYLATED HEM OGLOBIN TEST CPT-4: 83618 09/15/2011 DRAIN/INJECT JOINT/B URSA CPT-4: 43045 08/16/2011 METHYLPREDNISOLONE 4 0 MG INJ CPT-4: J1030 08/16/2011 TRIAMCINOLONE ACET I [place] NOS CPT-4: J3301 08/16/2011 PRESCRIP TRANSMIT A ERX SY CPT-4: G8553 08/03/2011 PRESCRIP TRANSMIT A ERX SY CPT-4: G8553 07/26/2011 METHYLPREDNISOLONE 4 0 MG INJ CPT-4: J1030 06/28/2011 DRAIN/INJECT JOINT/B URSA CPT-4: 52795 06/28/2011 TRIAMCINOLONE ACET I [place] NOS CPT-4: J3301 06/28/2011 PRESCRIP TRANSMIT A ERX SY CPT-4: G8553 06/28/2011 ROUTINE VENIPUNCTURE CPT-4: 40099 04/01/2011 ASSAY OF FREE THYROXINE CPT-4: 40295 04/01/2011 ASSAY THYROID STIM H ORMONE CPT-4: 72779 04/01/2011 COMPREHEN METABOLIC PANEL CPT-4: 03097 04/01/2011 COMPLETE CBC W/AUTO DIFF WBC CPT-4: 91675 04/01/2011 LIPID PANEL CPT-4: 68712 04/01/2011 PRESCRIP TRANSMIT A ERX SY CPT-4: G8553 03/31/2011 CERUM REMOVAL CPT-4: 45814 02/11/2011 PRESCRIP TRANSMIT A ERX SY CPT-4: G8553 02/11/2011 FLUZONE, 5ML (Medicare) CPT-4: Q2038 12/09/2010 ADMIN INFLUENZA VIRU S VAC CPT-4: G0008 12/09/2010 PRESCRIP TRANSMIT A ERX SY CPT-4: G8553 10/15/2010 URINALYSIS NONAUTO W /O SCOPE CPT-4: 44736 09/29/2010 URINE CULTURE/ COLON Y COUNT CPT-4: 79629 09/29/2010 CUR TOBACCO NON-USER CPT-4: G8457 09/29/2010 ROUTINE VENIPUNCTURE CPT-4: 77082 07/06/2010 COMPLETE CBC W/AUTO DIFF WBC CPT-4: 32958 07/06/2010 COMPREHEN METABOLIC PANEL CPT-4: 60235 07/06/2010 LIPID PANEL CPT-4: 20298 07/06/2010 ASSAY THYROID STIM H ORMONE CPT-4: 12088 07/06/2010 ASSAY OF FREE THYROXINE CPT-4: 72407 07/06/2010 PRESCRIP TRANSMIT A ERX SY CPT-4: G8553 07/02/2010 INJ TRIGGER POINT 1/ 2 MUSCL CPT-4: 14889 04/06/2010 TRIAMCINOLONE ACET I [place] NOS CPT-4: J3301 04/06/2010 METHYLPREDNISOLONE 4 0 MG INJ CPT-4: J1030 04/06/2010 THER/PROPH/DIAG INJ SC/IM CPT-4: 50956 04/01/2010 KETOROLAC TROMETHAMI NE INJ CPT-4: J1885 04/01/2010 PRESCRIP TRANSMIT A ERX SY CPT-4: G8553 01/22/2010 FLU VACCINE 3 YRS & > IM UP 64 CPT-4: 71670 12/10/2009 ADMIN INFLUENZA VIRU S VAC CPT-4: G0008 12/10/2009 URINALYSIS NONAUTO W /O SCOPE CPT-4: 69986 12/02/2009 URINE CULTURE/ COLON Y COUNT CPT-4: 10462 12/02/2009 PRESCRIP TRANSMIT A ERX SY CPT-4: G8553 12/02/2009 THER/PROPH/DIAG INJ SC/IM CPT-4: 11409 09/10/2009 VITAMIN B12 INJECTION CPT-4: J3420 09/10/2009 THER/PROPH/DIAG INJ SC/IM CPT-4: 49296 08/11/2009 VITAMIN B12 INJECTION CPT-4: J3420 08/11/2009 ROUTINE VENIPUNCTURE CPT-4: 44753 06/10/2009 Vital Signs Date Vital 08/14/2018 Blood Pressure 1: 144/70 Code: 8480-6 [...] 1: 142/60 Code: 8480-6 BMI: 38.2 Code: 69141-7 Heart Rate 1: 48 bpm Height: 5'2" Respiratory Rate: 20 bpm SpO2: 98% Temperature: 36.7 (C ) / 98.1 (F) Weight: 212 lbs 01/10/2018 Blood Pressure 1: 142/64 Code: 8480-6 BMI: 38.5 Code: 23962-3 Heart Rate 1: 52 bpm Height: 5'2" Respiratory Rate: 22 bpm SpO2: 96% Temperature: 36.1 (C ) / 96.9 (F) Weight: 214 lbs 12/06/2017 Blood Pressure 1: 124/80 Code: 8480-6 BMI: 38.3 Code: 97855-3 Heart Rate 1: 68 bpm Height: 5'2" Respiratory Rate: 20 bpm Temperature: 36.3 (C ) / 97.4 (F) Weight: 213 lbs 11/22/2017 Blood Pressure 1: 132/78 Code: 8480-6 BMI: 37.6 Code: 35742-2 Heart Rate 1: 68 bpm Height: 5'2" Respiratory Rate: 20 bpm SpO2: 97% Temperature: 36.8 (C ) / 98.2 (F) Weight: 209 lbs 10/20/2017 Blood Pressure 1: 150/76 Code: 8480-6 BMI: 38.5 Code: 90130-7 Heart Rate 1: 64 bpm Height: 5'2" Respiratory Rate: 20 bpm SpO2: 97% Temperature: 36.2 (C ) / 97.2 (F) Weight: 214 lbs 09/27/2017 Blood Pressure 1: 122/74 Code: 8480-6 BMI: 38.2 Code: 76026-0 Heart Rate 1: 64 bpm Height: 5'2" Respiratory Rate: 18 bpm SpO2: 96% Temperature: 35.8 (C ) / 96.4 (F) Weight: 212 lbs 08/16/2017 Blood Pressure 1: 124/78 Code: 8480-6 BMI: 37.8 Code: 92784-9 Heart Rate 1: 76 bpm Height: 5'2" Respiratory Rate: 20 bpm Temperature: 36.8 (C ) / 98.3 (F) Weight: 210 lbs 07/07/2017 Blood Pressure 1: 136/70 Code: 8480-6 BMI: 38.0 Code: 94891-2 Heart Rate 1: 68 bpm Height: 5'2" Respiratory Rate: 20 bpm SpO2: 97% Temperature: 36.8 (C ) / 98.2 (F) Weight: 211 lbs 05/30/2017 Blood Pressure 1: 140/65 Code: 8480-6 Heart Rate 1: 75 bpm Respiratory Rate: 24 bpm SpO2: 95% Temperature: 37.0 (C ) / 98.6 (F) Weight: 211 lbs 04/18/2017 Blood Pressure 1: 154/70 Code: 8480-6 BMI: 37.6 Code: 46318-3 Heart Rate 1: 76 bpm Height: 5'2" Respiratory Rate: 20 bpm SpO2: 98% Temperature: 36.9 (C ) / 98.5 (F) Weight: 209 lbs 10/25/2016 Blood Pressure 1: 156/70 Code: 8480-6 BMI: 37.1 Code: 28793-4 Heart Rate 1: 72 bpm Height: 5'2" Respiratory Rate: 20 bpm SpO2: 97% Temperature: 37.0 (C ) / 98.6 (F) Weight: 206 lbs 09/20/2016 Blood Pressure 1: 152/78 Code: 8480-6 BMI: 36.8 Code: 42098-7 Heart Rate 1: 78 bpm Height: 5'2" Respiratory Rate: 20 bpm SpO2: 98% Temperature: 36.1 (C ) / 97.0 (F) Weight: 204 lbs 05/12/2016 Blood Pressure 1: 142/70 Code: 8480-6 BMI: 36.9 Code: 00863-9 Heart Rate 1: 64 bpm Height: 5'2" [...] 1: 122/64 Code: 8480-6 BMI: 39.1 Code: 35142-0 Heart Rate 1: 76 bpm Height: 5'2" Respiratory Rate: 20 bpm Temperature: 36.8 (C ) / 98.2 (F) Weight: 217 lbs 05/21/2015 Blood Pressure 1: 144/70 Code: 8480-6 BMI: 39.4 Code: 52385-8 Heart Rate 1: 76 bpm Height: 5'2" Respiratory Rate: 20 bpm Temperature: 36.6 (C ) / 97.9 (F) Weight: 219 lbs 02/19/2015 Blood Pressure 1: 152/60 Code: 8480-6 BMI: 39.6 Code: 26018-2 Heart Rate 1: 84 bpm Height: 5'2" Respiratory Rate: 20 bpm Temperature: 37.0 (C ) / 98.6 (F) Weight: 220 lbs 11/13/2014 Blood Pressure 1: 146/76 Code: 8480-6 BMI: 39.8 Code: 65660-3 Heart Rate 1: 88 bpm Height: 5'2" Respiratory Rate: 20 bpm Temperature: 37.0 (C ) / 98.6 (F) Weight: 221 lbs 09/27/2014 Blood Pressure 1: 132/70 Code: 8480-6 BMI: 39.1 Code: 27345-9 Heart Rate 1: 88 bpm Height: 5'2" Respiratory Rate: 20 bpm Temperature: 36.4 (C ) / 97.6 (F) Weight: 217 lbs 07/11/2014 Blood Pressure 1: 132/66 Code: 8480-6 BMI: 39.9 Code: 27041-8 Heart Rate 1: 72 bpm Height: 5'2" Respiratory Rate: 20 bpm Temperature: 36.9 (C ) / 98.4 (F) Weight: 218 lbs 05/23/2014 Blood Pressure 1: 136/80 Code: 8480-6 Heart Rate 1: 76 bpm Respiratory Rate: 20 bpm Temperature: 36.7 (C) / 98.0 (F) Weight: 224 lbs 03/20/2014 Blood Pressure 1: 134/78 Code: 8480-6 BMI: 39.7 Code: 56136-0 Heart Rate 1: 84 bpm Height: 5'2" Respiratory Rate: 20 bpm Temperature: 36.7 (C ) / 98.0 (F) Weight: 217 lbs 10/17/2013 Blood Pressure 1: 146/78 Code: 8480-6 BMI: 39.5 Code: 00505-9 Heart Rate 1: 82 bpm Height: 5'2" Respiratory Rate: 18 bpm Temperature: 35.6 (C ) / 96.1 (F) Weight: 216 lbs 09/24/2013 Blood Pressure 1: 134/70 Code: 8480-6 BMI: 37.9 Code: 47162-6 Heart Rate 1: 80 bpm Height: 5'3" Respiratory Rate: 20 bpm Temperature: 36.8 (C ) / 98.2 (F) Weight: 214 lbs 05/31/2013 Blood Pressure 1: 132/70 Code: 8480-6 BMI: 37.6 Code: 27240-6 Heart Rate 1: 80 bpm Height: 5'3" Respiratory Rate: 20 bpm Temperature: 36.8 (C ) / 98.3 (F) Weight: 212 lbs 03/26/2013 Blood Pressure 1: 116/74 Code: 8480-6 Heart Rate 1: 68 bpm Respiratory Rate: 20 bpm Temperature: 36.2 (C) / 97.1 (F) Weight: 212 lbs 12/19/2012 Blood Pressure 1: 132/82 Code: 8480-6 BMI: 37.4 Code: 20098-9 Heart Rate 1: 76 bpm Height: 5'3" Respiratory Rate: 20 bpm Temperature: 36.7 (C ) / 98.0 (F) Weight: 211 lbs 12/04/2012 Blood Pressure 1: 130/76 Code: 8480-6 Heart Rate 1: 78 bpm 11/27/2012 Blood Pressure 1: 140/82 Code: 8480-6 BMI: 36.8 Code: 63374-2 Heart Rate 1: 66 bpm Height: 5'3" Respiratory Rate: 20 bpm Temperature: 36.1 (C ) / 96.9 (F) Weight: 208 lbs 10/04/2012 Blood Pressure 1: 138/80 Code: 8480-6 BMI: 36.4 Code: 20152-7 Heart Rate 1: 72 bpm Height: 5'4" Respiratory Rate: 20 bpm Temperature: 36.7 (C ) / 98.0 (F) Weight: 212 lbs 07/27/2012 Blood Pressure 1: 124/70 Code: 8480-6 BMI: 36.9 Code: 32190-0 Heart Rate 1: 60 bpm Height: 5'4" Temperature: 36.1 (C ) / 97.0 (F) Weight: 215 lbs 07/14/2012 Blood Pressure 1: 132/86 Code: 8480-6 BMI: 36.9 Code: 15306-5 Heart Rate 1: 76 bpm Height: 5'4" Respiratory Rate: 20 bpm Temperature: 36.8 (C ) / 98.2 (F) Weight: 215 lbs 06/08/2012 Blood Pressure 1: 134/82 Code: 8480-6 BMI: 36.6 Code: 79041-7 Heart Rate 1: 72 bpm Height: 5'4" Respiratory Rate: 20 bpm Temperature: 36.3 (C ) / 97.4 (F) Weight: 213 lbs 02/22/2012 Blood Pressure 1: 142/80 Code: 8480-6 BMI: 37.1 Code: 65837-5 Heart Rate 1: 76 bpm Height: 5'4" Respiratory Rate: 20 bpm Temperature: 36.8 (C ) / 98.3 (F) Weight: 216 lbs 12/28/2011 Blood Pressure 1: 128/68 Code: 8480-6 BMI: 37.6 Code: 68868-2 Heart Rate 1: 72 bpm Height: 5'4" [...] 1: 128/78 Code: 8480-6 BMI: 38.1 Code: 41071-2 Heart Rate 1: 84 bpm Height: 5'4" Respiratory Rate: 20 bpm Temperature: 36.9 (C ) / 98.4 (F) Weight: 222 lbs 08/16/2011 Blood Pressure 1: 138/80 Code: 8480-6 BMI: 37.9 Code: 37064-0 Heart Rate 1: 74 bpm Height: 5'4" Temperature: 36.1 (C ) / 97.0 (F) Weight: 221 lbs 08/03/2011 Blood Pressure 1: 126/78 Code: 8480-6 BMI: 38.4 Code: 90652-1 Heart Rate 1: 72 bpm Height: 5'4" Respiratory Rate: 20 bpm Temperature: 36.7 (C ) / 98.0 (F) Weight: 224 lbs 07/26/2011 Blood Pressure 1: 138/72 Code: 8480-6 BMI: 38.4 Code: 58222-5 Heart Rate 1: 72 bpm Height: 5'4" Respiratory Rate: 20 bpm Temperature: 36.6 (C ) / 97.9 (F) Weight: 224 lbs 06/28/2011 Blood Pressure 1: 122/78 Code: 8480-6 BMI: 38.8 Code: 09236-8 Heart Rate 1: 88 bpm Height: 5'4" Respiratory Rate: 20 bpm Temperature: 36.6 (C ) / 97.8 (F) Weight: 226 lbs 03/31/2011 Blood Pressure 1: 116/60 Code: 8480-6 BMI: 38.1 Code: 43437-0 Heart Rate 1: 92 bpm Height: 5'4" Respiratory Rate: 20 bpm Temperature: 36.8 (C ) / 98.2 (F) Weight: 222 lbs 02/11/2011 Blood Pressure 1: 118/62 Code: 8480-6 BMI: 37.9 Code: 17459-1 Heart Rate 1: 80 bpm Height: 5'4" Temperature: 36.5 (C ) / 97.7 (F) Weight: 221 lbs 10/15/2010 Blood Pressure 1: 132/70 Code: 8480-6 Heart Rate 1: 84 bpm Respiratory Rate: 20 bpm Temperature: 36.7 (C) / 98.0 (F) Weight: 221 lbs 09/29/2010 Blood Pressure 1: 114/72 Code: 8480-6 BMI: 37.6 Code: 98334-4 Heart Rate 1: 76 bpm Height: 5'4" [...] 1: 120/70 Code: 8480-6 BMI: 38.3 Code: 92028-9 Heart Rate 1: 88 bpm Height: 5'5" [...] Has been taking flonase a nd claritin 1/ tab daily myalgias Location diffus clementine 12/19/2012 [...] with twisting 04/06/2010 None follow up Illness sympto ms improved 04/06/2010 but still having problems [...] Quality improving 12/02/2009 None follow up Illness sympto ms improved 12/02/2009 with Lexapro urinary urgency Onset and Resolution ongoing 12/02/2009 but improving with increa sed water intake follow up Illness sympto ms improved 10/21/2009 had weakness and shakes-- was busy week getting ready for granddaughter's wedding weakness Quality muscle weakness 10/21/2009 None dyskinesia or tremor Quality acute 10/21/2009 came on out of blue follow up Illness sympto ms remained unchanged 09/10/2009 still with fatigue, [...] Encounters Encounter Performer Loca tion Codes Date ([id number]) OFFICE/OUTPA TIENT VISIT EST Diagnosis: Essential (primary) hypertension[ICD10: I10] Diagnosis: 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] Diagnosis: Hypoglycemia, unspecified[ICD10: E16.2] Diagnosis: Other fatigue[ICD10: R53.83] Diagnosis: Urinary tract infection, site not specified[ICD10: N39.0] Vikki GUAMAN [employer] CPT-4: 81726 08/14/2018 ([id number]) OFFICE/OUTPA TIENT VISIT EST Diagnosis: Essential (primary) hypertension[ICD10: I10] Diagnosis: Gastro-esophageal reflux disease without esophagitis[ICD10: K21.9] Diagnosis: Urinary tract infection, site not specified[ICD10: N39.0] Vikki PIKE [employer] CPT-4: 55852 05/10/2018 ([id number]) OFFICE/OUTPA TIENT VISIT EST Diagnosis: Gastro-esophageal reflux disease without esophagitis[ICD10: K21.9] Diagnosis: Epigastric pain[ICD10: R10.13] Vikki PIKE [employer] CPT-4: 27229 02/14/2018 ([id number]) OFFICE/OUTPA TIENT VISIT EST Diagnosis: 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] Diagnosis: Essential (primary) hypertension[ICD10: I10] Diagnosis: Generalized anxiety disorder[ICD10: F41.1] Diagnosis: Gastro-esophageal reflux disease without esophagitis[ICD10: K21.9] Vikkigabriel GUAMAN [employer] CPT-4: 45572 01/10/2018 OFFICE/OUTPATIENT SIT EST Diagnosis: Gastro-esophageal reflux disease without esophagitis[ICD10: K21.9] Diagnosis: Palpitations[ICD10: R00.2] Diagnosis: Urinary tract infection, site not specified[ICD10: N39.0] Diagnosis: Generalized anxiety disorder[ICD10: F41.1] Vikki MARTINEZ [facility] CPT-4: 47620 12/06/2017 ([id number]) NURSE/OUTPAT IENT VISIT EST Diagnosis: 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] Diagnosis: Hypoglycemia, unspecified[ICD10: E16.2] Diagnosis: Dizziness and giddiness[ICD10: R42] Diagnosis: Occlusion and stenosis of bilateral carotid arteries[ICD10: I65.23] Vikki GUAMAN [facility] CPT-4: 42386 11/30/2017 OFFICE/OUTPATIENT SIT EST Diagnosis: Epigastric pain[ICD10: R10.13] Diagnosis: Generalized anxiety disorder[ICD10: F41.1] Diagnosis: FLU VACCINE[ICD10: Z23] Vikki GUAMAN [facility] CPT-4: 00064 11/22/2017 ([id number]) OFFICE/OUTPA TIENT VISIT EST Diagnosis: Essential (primary) hypertension[ICD10: I10] Diagnosis: Hypoglycemia, unspecified[ICD10: E16.2] Diagnosis: Gastro-esophageal reflux disease without esophagitis[ICD10: K21.9] Vikki GUAMAN [facility] CPT-4: 82301 10/20/2017 ([id number]) OFFICE/OUTPA TIENT VISIT EST Diagnosis: Dizziness and giddiness[ICD10: R42] Jennifer BALL [facility] CPT-4: 74478 09/27/2017 ([id number]) OFFICE/OUTPA TIENT VISIT EST Diagnosis: Cervicalgia[ICD10: M54.2] Diagnosis: Other spondylosis with radiculopathy, cervical region[ICD10: M47.22] Vikki GUAMAN [facility] CPT-4: 49234 08/16/2017 ([id number]) OFFICE/OUTPA TIENT VISIT EST Diagnosis: Hypoglycemia, unspecified[ICD10: E16.2] Diagnosis: Other spondylosis with radiculopathy, cervical region[ICD10: M47.22] Diagnosis: Vertigo of central origin, 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] Diagnosis: 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] Vikki MARTINEZ [facility] CPT-4: 17318 07/07/2017 ([id number]) OFFICE/OUTPA TIENT VISIT EST Diagnosis: Benign paroxysmal vertigo, bilateral[ICD10: H81.13] Diagnosis: Otalgia, bilateral[ICD10: H92.03] Jennifer BALL [facility] CPT-4: 84956 05/30/2017 ([id number]) OFFICE/OUTPA TIENT VISIT EST Diagnosis: Low back pain[ICD10: M54.5] Diagnosis: Radiculopathy, lumbosacral region[ICD10: M54.17] Diagnosis: Left lower quadrant pain[ICD10: R10.32] Vikki MARTINEZ [facility] CPT-4: 57893 04/18/2017 ([id number]) OFFICE/OUTPA TIENT VISIT EST Diagnosis: FLU VACCINE[ICD10: Z23] Vikki GUAMAN [facility] CPT-4: 53595 12/10/2016 ([id number]) OFFICE/OUTPA TIENT VISIT EST Diagnosis: Mixed hyperlipidemia[ICD10: E78.2] Diagnosis: Essential (primary) hypertension[ICD10: I10] Diagnosis: 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] Diagnosis: Impaired fasting glucose[ICD10: R73.01] Diagnosis: Other fatigue[ICD10: R53.83] Vikki GUAMAN [facility] CPT-4: 75195 11/01/2016 ([id number]) OFFICE/OUTPA TIENT VISIT EST Diagnosis: Pain in thoracic spine[ICD10: M54.6] Diagnosis: Other intervertebral disc degeneration, 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] Vikki GUAMAN [facility] CPT-4: 57759 10/25/2016 ([id number]) OFFICE/OUTPA TIENT VISIT EST Diagnosis: Left lower quadrant pain[ICD10: R10.32] Diagnosis: Low back pain[ICD10: M54.5] Vikki GUAMAN [facility] CPT-4: 48916 09/20/2016 ([id number]) OFFICE/OUTPA TIENT VISIT EST Diagnosis: Mixed hyperlipidemia[ICD10: E78.2] Diagnosis: Essential (primary) hypertension[ICD10: I10] Diagnosis: Hypoglycemia, unspecified[ICD10: E16.2] Vikki MARTINEZ [facility] CPT-4: 37640 05/13/2016 ([id number]) OFFICE/OUTPA TIENT VISIT EST Diagnosis: Impaired fasting glucose[ICD10: R73.01] Diagnosis: Mastodynia[ICD10: N64.4] Diagnosis: Mixed hyperlipidemia[ICD10: E78.2] Diagnosis: Essential (primary) hypertension[ICD10: I10] Diagnosis: Other fatigue[ICD10: R53.83] Vikki RobertsSujata [facility] CPT-4: 17654 05/12/2016 ([id number]) OFFICE/OUTPA TIENT VISIT EST Diagnosis: Acute upper respiratory infection, unspecified[ICD10: J06.9] Yue Griffin CORTEZLINE AlejandraSujata [facility] CPT-4: 38592 03/18/2016 ([id number]) OFFICE/OUTPA TIENT VISIT EST Diagnosis: Acute mastoiditis without complications, right ear[ICD10: H70.001] Vikki CORTEZLINE AlejandraSujata [facility] CPT-4: 34217 02/06/2016 ([id number]) OFFICE/OUTPA TIENT VISIT EST Diagnosis: FLU VACCINE[ICD10: Z23] Vikki GUAMAN [facility] CPT-4: 65403 12/12/2015 ([id number]) OFFICE/OUTPA TIENT VISIT EST Diagnosis: Mixed hyperlipidemia[ICD10: E78.2] Diagnosis: Essential (primary) hypertension[ICD10: I10] Diagnosis: 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] Diagnosis: Impaired fasting glucose[ICD10: R73.01] Vikkigabriel MARTINEZ [facility] CPT-4: 14008 11/25/2015 ([id number]) OFFICE/OUTPA TIENT VISIT EST Diagnosis: Constipation, unspecified[ICD10: K59.00] Vikki MARTINEZ [facility] CPT-4: 31604 08/26/2015 ([id number]) OFFICE/OUTPA TIENT VISIT EST Diagnosis: Essential (primary) hypertension[ICD10: I10] Diagnosis: Mixed hyperlipidemia[ICD10: E78.2] Diagnosis: Chronic kidney disease, stage 1[ICD10: N18.1] Vikki MARTINEZ [facility] CPT-4: 81544 05/21/2015 ([id number]) OFFICE/OUTPA TIENT VISIT EST Diagnosis: Muscle weakness (generalized)[ICD10: M62.81] Diagnosis: Dizziness and giddiness[ICD10: R42] Diagnosis: Essential (primary) hypertension[ICD10: I10] Diagnosis: History of falling[ICD10: Z91.81] [facility]: 16453 02/19/2015 ([id number]) OFFICE/OUTPA TIENT VISIT EST Diagnosis: FLU VACCINE[ICD10: Z23] Vikki GUAMAN [facility] CPT-4: 62690 12/20/2014 ([id number]) OFFICE/OUTPA TIENT VISIT EST Diagnosis: Acute renal failure[ICD9: 584.9] Diagnosis: POLYURIA[ICD9: 788.42] Vikki GUAMAN [facility] CPT-4: 82065 11/19/2014 ([id number]) OFFICE/OUTPA TIENT VISIT EST Diagnosis: HYPERLIPIDEMIA NEC/NOS[ICD9: 272.4] Diagnosis: HYPERTENSION[ICD9: 401.9] Diagnosis: CAD[ICD9: 414.00] Diagnosis: Hyperglycemia[ICD9: 790.29] Diagnosis: MALAISE AND FATIGUE[ICD9: 780.79] [facility] 31931 11/14/2014 ([id number]) OFFICE/OUTPA TIENT VISIT EST Diagnosis: MALAISE AND FATIGUE[ICD9: 780.79] Diagnosis: HYPOGLYCEMIA[ICD9: 251.2] Diagnosis: Grieving[ICD9: 309.0] Diagnosis: ABDOMINAL PAIN[ICD9: 789.00] Vikki GUAMAN [facility] CPT-4: 25435 11/13/2014 OFFICE/OUTPATIENT SIT EST Diagnosis: CERUMEN IMPACTION[ICD9: 380.4] Diagnosis: EUSTACHIAN TUBE DYSFUNCTION[ICD9: 381.81] Jessenia Penny VIKKI S. O RENDER DO [facility] CPT-4: 54624 09/27/2014 ([id number]) OFFICE/OUTPA TIENT VISIT EST Diagnosis: Leg pain[ICD9: 729.5] Diagnosis: SUPERFIC PHLEBITIS-LEG[ICD9: 451.0] Vikki MARTINEZ [facility] CPT-4: 83400 07/11/2014 ([id number]) OFFICE/OUTPA TIENT VISIT EST Diagnosis: Thoracic back pain[ICD9: 724.1] Diagnosis: SPASM OF MUSCLE[ICD9: 728.85] Vikki GUAMAN [facility] CPT-4: 90621 05/23/2014 ([id number]) OFFICE/OUTPA TIENT VISIT EST Diagnosis: DIZZINESS/VERTIGO[ICD9: 780.4] Diagnosis: Benign positional vertigo[ICD9: 386.11] Diagnosis: HYPERTENSION[ICD9: 401.9] Diagnosis: Suspicious nevus[ICD9: 238.2] Vikki GUAMAN [facility] CPT-4: 90999 03/20/2014 ([id number]) OFFICE/OUTPA TIENT VISIT EST Diagnosis: FLU VACCINE[ICD10: Z23] Vikki GUAMAN [facility] CPT-4: 30470 12/21/2013 OFFICE/OUTPATIENT SIT EST Diagnosis: SINUSITIS, ACUTE[ICD9: 461.9] Diagnosis: EUSTACHIAN TUBE DYSFUNCTION[ICD9: 381.81] Jessenia EcheverriaAnthony VIKKI S. O RENDER DO [facility] CPT-4: 64086 10/17/2013 ([id number]) OFFICE/OUTPA TIENT VISIT EST Diagnosis: DIZZINESS/VERTIGO[ICD9: 780.4] Diagnosis: HYPERTENSION[ICD9: 401.9] Vikki GUAMAN [facility] CPT-4: 72837 09/24/2013 ([id number]) OFFICE/OUTPA TIENT VISIT EST Diagnosis: HYPERTENSION[ICD9: 401.9] Diagnosis: MALAISE AND FATIGUE[ICD9: 780.79] Diagnosis: SINUSITIS, ACUTE[ICD9: 461.9] Vikki GUAMAN [facility] CPT-4: 51750 05/31/2013 ([id number]) OFFICE/OUTPA TIENT VISIT EST Diagnosis: HYPERLIPIDEMIA NEC/NOS[ICD9: 272.4] Diagnosis: HYPERTENSION[ICD9: 401.9] Diagnosis: B12 DEFIC ANEMIA NEC[ICD9: 281.1] Diagnosis: HYPOGLYCEMIA[ICD9: 251.2] Vikki GUAMAN [facility] CPT-4: 56173 03/28/2013 OFFICE/OUTPATIENT SIT EST Diagnosis: COUGH[ICD9: 786.2] Jessenia GUAMAN [facility] CPT-4: 33397 03/26/2013 OFFICE/OUTPATIENT SIT EST Diagnosis: COUGH[ICD9: 786.2] Diagnosis: URI, ACUTE[ICD9: 465.9] Jessenia GUAMAN [facility] CPT-4: 47069 12/19/2012 ([id number]) OFFICE/OUTPA TIENT VISIT EST Diagnosis: HYPERTENSION[ICD9: 401.9] Diagnosis: CEPHALGIA[ICD9: 784.0] Diagnosis: ANXIETY STATE NOS[ICD9: 300.00] Diagnosis: FLU VACCINE[ICD9: V04.81] Vikki GUAMAN [facility] CPT-4: 96162 11/27/2012 ([id number]) OFFICE/OUTPA TIENT VISIT EST Diagnosis: DIZZINESS/VERTIGO[ICD9: 780.4] Diagnosis: SINUSITIS, ACUTE[ICD9: 461.9] Diagnosis: Benign positional vertigo[ICD9: 386.11] Vikki MARTINEZ [facility] CPT-4: 47144 10/04/2012 OFFICE/OUTPATIENT SIT EST Diagnosis: OTITIS MEDIA NOS[ICD9: 382.9] Vikki GUAMAN [facility] CPT-4: 08865 07/27/2012 OFFICE/OUTPATIENT SIT EST Diagnosis: Perforation of ear drum[ICD9: 384.20] Diagnosis: SINUSITIS, ACUTE[ICD9: 461.9] Vikki GUAMAN [facility] CPT-4: 22831 07/14/2012 ([id number]) OFFICE/OUTPA TIENT VISIT EST Diagnosis: Mastalgia[ICD9: 611.71] Vikki GUAMAN [facility] CPT-4: 44790 06/08/2012 ([id number]) OFFICE/OUTPA TIENT VISIT EST Diagnosis: HYPERLIPIDEMIA NEC/NOS[ICD9: 272.4] Diagnosis: HYPERTENSION[ICD9: 401.9] Diagnosis: DIZZINESS/VERTIGO[ICD9: 780.4] Diagnosis: Hyperglycemia[ICD9: 790.29] Diagnosis: MALAISE AND FATIGUE[ICD9: 780.79] Vikki MARTINEZ [facility] CPT-4: 50701 02/23/2012 ([id number]) OFFICE/OUTPA TIENT VISIT EST Diagnosis: EUSTACHIAN TUBE DYSFUNCTION[ICD9: 381.81] Diagnosis: DIZZINESS/VERTIGO[ICD9: 780.4] Diagnosis: ABDOMINAL PAIN[ICD9: 789.00] Diagnosis: GERD[ICD9: 530.81] Diagnosis: CERUMEN IMPACTION[ICD9: 380.4] Vikki GUAMAN [facility] CPT-4: 42338 02/22/2012 OFFICE/OUTPATIENT SIT EST Diagnosis: ABDOMINAL PAIN[ICD9: 789.00] Diagnosis: DYSPEPSIA[ICD9: 536.8] Vikki GUAMAN [facility] CPT-4: 49037 12/28/2011 ([id number]) OFFICE/OUTPA TIENT VISIT EST Diagnosis: ABDOMINAL PAIN[ICD9: 789.00] Diagnosis: DYSPEPSIA[ICD9: 536.8] Diagnosis: IBS[ICD9: 564.1] Vikki GUAMAN DO [facility] CPT-4: 51077 12/15/2011 OFFICE/OUTPATIENT SIT EST Diagnosis: DIZZINESS/VERTIGO[ICD9: 780.4] Diagnosis: HYPOGLYCEMIA[ICD9: 251.2] Vikki GUAMAN DO [facility] CPT-4: 05626 09/21/2011 ([id number]) OFFICE/OUTPA TIENT VISIT EST Diagnosis: URINARY TRACT INFECTION[ICD9: 599.0] Vikki MARTINEZ DO [facility] CPT-4: 80014 09/16/2011 ([id number]) OFFICE/OUTPA TIENT VISIT EST Diagnosis: HYPERLIPIDEMIA NEC/NOS[ICD9: 272.4] Diagnosis: HYPERTENSION[ICD9: 401.9] Diagnosis: MALAISE AND FATIGUE[ICD9: 780.79] Diagnosis: DIZZINESS/VERTIGO[ICD9: 780.4] Vikki GUAMAN DO [facility] CPT-4: 40669 09/15/2011 ([id number]) OFFICE/OUTPA TIENT VISIT EST Diagnosis: DIZZINESS/VERTIGO[ICD9: 780.4] Diagnosis: MALAISE AND FATIGUE[ICD9: 780.79] Diagnosis: HYPERTENSION[ICD9: 401.9] Vikki GUAMAN DO [facility] CPT-4: 27485 09/13/2011 OFFICE/OUTPATIENT SIT EST Diagnosis: LUMB/LUMBOSAC DISC DEGEN[ICD9: 722.52] Diagnosis: Radiculopathy of leg[ICD9: 724.4] Diagnosis: 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] Diagnosis: SPINAL ENTHESOPATHY[ICD9: 720.1] Vikki GUAMAN DO [facility] CPT-4: 58331 08/16/2011 ([id number]) OFFICE/OUTPA TIENT VISIT EST Diagnosis: PAIN, LOWER BACK[ICD9: 724.2] Diagnosis: SPASM OF MUSCLE[ICD9: 728.85] Diagnosis: SCIATICA[ICD9: 724.3] Diagnosis: Lumbar degenerative disc disease[ICD9: 722.52] Vikki [facility]ARTINO [facility] CPT-4: 42619 08/03/2011 ([id number]) OFFICE/OUTPA TIENT VISIT EST Diagnosis: PAIN IN THORACIC SPINE[ICD9: 724.1] Diagnosis: SPASM OF MUSCLE[ICD9: 728.85] Vikki GUAMAN [facility] CPT-4: 41402 07/26/2011 ([id number]) OFFICE/OUTPA TIENT VISIT EST Diagnosis: PAIN, LOWER BACK[ICD9: 724.2] Diagnosis: SPASM OF MUSCLE[ICD9: 728.85] Diagnosis: Sacroiliac dysfunction[ICD9: 739.4] Diagnosis: Lumbar degenerative disc disease[ICD9: 722.52] Vikki MARTINEZ [facility] CPT-4: 99597 06/28/2011 OFFICE/OUTPATIENT SIT EST Diagnosis: MALAISE AND FATIGUE[ICD9: 780.79] Diagnosis: HYPOTENSION[ICD9: 458.9] Diagnosis: CAD[ICD9: 414.00] Vikki GUAMAN [facility] CPT-4: 35427 03/31/2011 OFFICE/OUTPATIENT SIT EST Diagnosis: SINUSITIS, ACUTE[ICD9: 461.9] Diagnosis: PHARYNGITIS, ACUTE[ICD9: 462] Diagnosis: CERUMEN IMPACTION[ICD9: 380.4] Vikki GUAMAN [facility] CPT-4: 58301 02/11/2011 OFFICE/OUTPATIENT SIT EST Diagnosis: PAIN IN THORACIC SPINE[ICD9: 724.1] Diagnosis: GERD[ICD9: 530.81] Diagnosis: DIZZINESS/VERTIGO[ICD9: 780.4] Vikki GUAMAN [facility] CPT-4: 37800 10/15/2010 OFFICE/OUTPATIENT SIT EST Vikki MARTINEZ [facility] CPT-4: 40562 09/29/2010 ([id number]) OFFICE/OUTPA TIENT VISIT EST Vikki MARTINEZ [facility] CPT-4: 59602 07/02/2010 ([id number]) OFFICE/OUTPA TIENT VISIT, EST Diagnosis: PAIN, LOWER BACK[ICD9: 724.2] [facility] CPT-4: 44334 04/06/2010 ([id number]) OFFICE/OUTPA TIENT VISIT, EST [facility]ki [facility] CPT-4: 22218 04/01/2010 ([id number]) OFFICE/OUTPA TIENT VISIT, EST [facility]ki [facility] CPT-4: 62896 01/22/2010 ([id number]) OFFICE/OUTPA TIENT VISIT, EST Vikki [facility] CPT-4: 19786 12/02/2009 ([id number]) OFFICE/OUTPA TIENT VISIT, EST Vikki [facility] CPT-4: 49668 10/21/2009 ([id number]) OFFICE/OUTPA TIENT VISIT, EST Vikki [facility] CPT-4: 62580 09/10/2009 ([id number]) OFFICE/OUTPA TIENT VISIT, EST Vikki [facility] CPT-4: 09637 08/11/2009 ([id number]) OFFICE/OUTPA TIENT VISIT, EST Vikki [facility] CPT-4: 71108 06/09/2009 Plan of Care Planned Activity Notes C odes Status Date Visit Diagnosis Plan: Essential (primary) [...] N39.0 08/14/2018 Appointment: Vikki Guaman WPtel: [address] [place], [place] [phone] US FOLLOW UP 08/14/2018 Visit Diagnosis Plan: [...] : I10 05/10/2018 Appointment: Vikki Guaman WPtel: [address] [place], [place] [phone] US FOLLOW UP 05/10/2018 Patient Education: metoprolol tartrate- [employer] Coupon [id number] [email or web address] Completed 05/10/2018 Appointment: Vikki Guaman WPtel: [address] [place], [place] [address] US CANCELED 04/21/2018 Visit Diagnosis Plan: Epigastric pain Discussion: Check CT abdomen/pelvis due to ongoing abdominal pain ICD-9 : 789.06 ICD-10 : R10.13 02/14/2018 Visit Diagnosis Plan: Gastro-esophageal reflux disease without esophagitis Discussion: Continue protonix and carafa te Proceed with updated EGD ICD-9 : 530.81 ICD-10 : K21.9 02/14/2018 Appointment: Vikki Guaman WPtel: [address] [place], [place] [phone] US FOLLOW UP 02/14/2018 Care Plan: CT PELVIS W/O DYE LOINC : 84564-5 Pending 02/14/2018 Care Plan: CT ABDOMEN W/O DYE LOINC : 13668-7 Pending 02/14/2018 Care Plan: Referral Order SNOMED-CT : [id number] Pending 02/14/2018 Visit Diagnosis Plan: Generalized anxiety [...] Diagnosis Plan: 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 [facility] 01/10/2018 Visit Diagnosis [...] : N39.0 12/06/2017 Appointment: [facility] [phone] [facility] [facility] 12/06/2017 Patient Education: Patient Medication Summary Completed 12/06/2017 Appointment: Vikki Guaman WPtel: [phone] [facility] LAB 11/30/2017 Patient Education: Patient Medication Summary [...] : F41.1 11/22/2017 Appointment: Vikki Guaman WPtel: [facility] FOLLOW UP 11/22/2017 Patient Education: Patient Medication [...] K21.9 10/20/2017 Appointment: Vikki Guaman WPtel: [phone] [facility] ACUTE ILLNESS 10/20/2017 Patient Education: Patient Medication Summary Completed 10/20/2017 Visit Diagnosis Plan: Dizziness and giddiness Discussion: blood work to be completed in office including cmp, cbc, troponin to rule out glucose intolerance, infection, dehydration. instructed patient that she needs to see her continuous pillowcase cutter sooner than oct and patient requested we contact dr. brown's office. will have front office make appt. patient has carotid doppler annually. ICD-9 : 780.4 ICD-10 : R42 09/27/2017 Appointment: Jennifer Rosario [address] ACUTE ILLNESS 09/27/2017 Patient Education: Patient Medication Summary Completed 09/27/2017 Visit Diagnosis Plan: Cervicalgia Di scussion: Complete course of PT since symptoms improved Continue stretching exercises Notify if symptoms return or worsen ICD-9 : 723.1 ICD-10 : M54.2 08/16/2017 Appointment: Vikki Guaman WPtel: [address] [place] [address] FOLLOW UP 08/16/2017 Patient Education: Patient Medication [...] H81.43 07/07/2017 Appointment: Vikki Guaman WPtel: [address] [place] [address] 07/07/2017 Patient Education: Patient Medication Summary Completed 07/07/2017 Care Plan: MRI NECK SPINE W/O DYE LOINC : 83927-4 Pending 07/07/2017 Visit Diagnosis Plan: Benign paroxysmal [...] ICD-10 : H92.03 05/30/2017 Appointment: Jennifer Rosario [address] [place] [address] ACUTE ILLNESS 05/30/2017 Patient Education: Patient Medication [...] : R10.32 04/18/2017 Appointment: Vikki Guaman WPtel: [address] [place] [address] ACUTE ILLNESS 04/18/2017 Patient Education: Patient Medication Summary Completed 04/18/2017 Appointment: Vikki Guaman WPtel: [address] [place] [address] US INJECTION 12/10/2016 Patient Education: Patient Medication Summary Completed 12/10/2016 Appointment: Vikki Guaman WPtel: [address] [place] [address] LAB 11/01/2016 Patient Education: Patient Medication Summary Completed 11/01/2016 Visit Diagnosis Plan: Other intervertebr al disc degeneration, lumbar region Follow Up: 3 months ICD-9 : 722.52 ICD-10 : M51.36 10/25/2016 Visit Diagnosis Plan: Pain in thoracic spine Discussion: PT has helped Continue stretches and walking D[facility]ed [facility] to continue exercise ICD-9 : 724.1 ICD-10 : M54.6 10/25/2016 Appointment: Vikki Guaman WPtel: [address] [place] [address] US FOLLOW UP 10/25/2016 Patient Education: Patient [...] : R10.32 09/20/2016 Appointment: Vikki Guaman WPtel: [address] [place], [place] [phone] ACUTE ILLNESS 09/20/2016 Patient Education: Patient Medication Summary Completed 09/20/2016 Appointment: Vikki Guaman WPtel: [address] [place], [place] [phone] US LAB 05/13/2016 Patient Education: Patient Medication Summary Completed 05/13/2016 Visit Diagnosis Plan: Mixed hyperlipidemia Discussion: Check lipids ICD-9 : 272.4 ICD-10 : E78.2 05/12/2016 Visit Diagnosis Plan: Impaired fasting glucose Discussion: Return in AM for CMP, HbA1C Accuchecks daily Diet/Exercise discussed at length ICD-9 : 790.29 ICD-10 : R73.01 05/12/2016 Visit Diagnosis Plan: Mastodynia Dis cussion: Check Bilateral diagnostic mammogram with US ICD-9 : 611.71 ICD-10 : N64.4 05/12/2016 Visit Diagnosis Plan: Other fatigue Discussion: Check CBC, TSH ICD-9 : 780.79 ICD-10 : R53.83 05/12/2016 Appointment: Vikki Guaman WPtel: [address] [place], [place] [phone] US 05/11 confirmed `sl ACUTE ILLNESS 05/12/2016 Patient Education: Patient Medication Summary Completed 05/12/2016 Care Plan: MAMMOGRAM SCREENING LOINC : 15959-8 Pending 05/12/2016 Visit Diagnosis Plan: Acute upper respir atory infection, unspecified Discussion: Exam is reassuring Likely vi ral illness Supportive care reviewed and encouraged Follow up PRN ICD-9 : 465.9 ICD-10 : J06.9 03/18/2016 Appointment: Yue Moya [address] [place] [address] ACUTE ILLNESS 03/18/2016 Patient Education: Patient Medication Summary Completed 03/18/2016 Visit Plan: Supportive care. Rest, Fluids, Tylenol/Motrin prn fever or bodyaches. Notify if worsening symptoms. 02/06/2016 Appointment: Vikki Guaman WPtel: [address] [place] [address] ACUTE ILLNESS 02/06/2016 Patient Education: Patient Medication Summary Completed 02/06/2016 Appointment: Vikki Guaman WPtel: [address] [place] [address] INJECTION 12/12/2015 Patient Education: Patient Medication Summary Completed 12/12/2015 Appointment: Vikki Guaman WPtel: [address] [place] [address] LAB 11/25/2015 Patient Education: Patient Medication Summary Completed 11/25/2015 Visit Plan: Add miralax daily Use d aily probiotic and metamucil and push fluids Notify if worsens/persists 08/26/2015 Appointment: Vikki Guaman WPtel: [address] [place] [address] 08/25/15 confirmed ~sl ACUTE ILLNESS 08/26/2015 Patient Education: Patient Medication Summary Completed 08/26/2015 Visit Plan: No NSAIDs Kidney functi on discussed Discussed hydration Monitor lab every 4months so will check CMP, HbA1C next month 05/21/2015 Visit Plan: No NSAIDs Kidney functi on discussed Discussed hydration Monitor lab every 4months so will check CMP, HbA1C next month 05/21/2015 Appointment: Vikki Guaman WPtel: [address] [place] [address] 05/19 confirmed ~sl ACUTE ILLNESS 05/21/2015 Patient [...] Chem 7 02/19/2015 Appointment: Vikki Guaman WPtel: [address] [place], [place] [phone] 02/18/15 appt confirmed cn FOLLOW UP 02/19/2015 Patient Education: Patient Medication Summary Completed 02/19/2015 Patient Education: Vertigo Completed 02/19/2015 Appointment: Vikki Guaman WPtel: [address] [place], [place] [phone] US INJECTION 12/20/2014 Patient Education: Patient Medication Summary Completed 12/20/2014 Appointment: Vikki Guaman WPtel: [address] [place], [place] [phone] UA 11/19/2014 Patient Education: Patient Medication Summary Completed 11/19/2014 [facility] [facility] Ref[facility] Completed 11/18/2014 Appointment: Vikki Guaman WPtel: [address] [place], [place] [phone] US LAB 11/14/2014 Patient Education: Patient Medication Summary Completed 11/14/2014 Visit Plan: Check CMP, CBC, TSH, Fr ee T4, B12, Lipids, HbA1C Discussed 6 small meals a day each with protein Would likely benefit from antidepressant Update colonoscopy 11/13/2014 Appointment: Vikki Guaman WPtel: [address] [place], [place] [phone] 11/12/14 confirmed ACUTE ILLNESS 11/13/2014 Patient Education: Patient Medication Summary Completed 11/13/2014 Visit Plan: Cerumen flush with warm water and peroxide - good results Resume Nasonex nasal spray daily Recommended Debrox earwax removal drops 09/27/2014 Visit Plan: Cerumen flush with warm water and peroxide - good results Resume Nasonex nasal spray daily Recommended Debrox earwax removal drops 09/27/2014 Appointment: Jessenia Francis WPtel: [address] [place], [place] [phone] ACUTE ILLNESS 09/27/2014 Patient Education: Patient Medication Summary Completed 09/27/2014 Visit Plan: Continue aspirin daily Add meloxicam for 1week Elevate and Ice Call on Tuesday07/11/2014 Appointment: Vikki Guaman WPtel: [address] [place], [place] [phone] ACUTE ILLNESS 07/11/2014 Patient Education: Patient Medication Summary Completed 07/11/2014 Visit Plan: Been using baclofen at bedtime and has helped some PT for next 2-4weeks 05/23/2014 Appointment: Vikki Guaman WPtel: [address] [place], [place] [phone] Hospital Follow Up 05/23/2014 Patient Education: Patient Medication Summary Completed 05/23/2014 Appointment: Vikki Guaman WPtel: [address] [place], [place] [phone] LAB 05/10/2014 Appointment: Vikki Guaman WPtel: [address] [place], [place] [phone] feeling better, weather - FOLLOW UP 04/24/2014 Referral: Ed[facility] [facility] Referral Appointment Requested 04/03/2014 Visit Plan: Continue exercise and c urrent meds See surgery for removal of right arm lesion 03/20/2014 Appointment: Vikki Guaman WPtel: [address] [place], [place] [phone] FOLLOW UP 03/20/2014 Patient Education: Patient Medication Summary Completed 03/20/2014 Appointment: Vikki Guaman WPtel: [address] [place], [place] [phone] US INJECTION 12/21/2013 Patient Education: Patient Medication Summary Completed 12/21/2013 Visit Plan: Resume Claritin PO yesi y May take Ibuprofen PM at night for sleep Continue Flonase 2 sprays each nostril bid Complete prednisone 20 mg PO bid 10/17/2013 Appointment: Jessenia Francis WPtel: [address] [place] [address] ACUTE ILLNESS 10/17/2013 Patient Education: Patient Medication Summary Completed 10/17/2013 Visit Plan: Discussed that likely l umbar etiology for leg weakness Will change amlodopine to low dose dyazide and see if helps legs and inner ear 09/24/2013 Appointment: Vikki Guaman WPtel: [address] [place], [place] [phone] FOLLOW UP 09/24/2013 Patient Education: Patient Medication Summary Completed 09/24/2013 Visit Plan: Ceftin and continue cla ritin/flonase Decrease amlodopine to 2.5mg q HS until fwup with Card due to weakness 05/31/2013 Appointment: Vikki Guaman WPtel: [address] [place], [place] [phone] ACUTE ILLNESS 05/31/2013 Patient Education: Patient Medication Summary Completed 05/31/2013 Appointment: Vikki Guaman WPtel: [address] [place], [place] [phone] LAB 03/28/2013 Patient Education: Patient Medication Summary Completed 03/28/2013 Visit Plan: States she is having he r carotids "done" this Tuesday03/28/13 Return this week for fasting labs. CBC, CMP, TSH Free T4, Lipid Panel and HgbA1C. 03/26/2013 Appointment: Jessenia Francis WPtel: [address] [place], [place] [phone] ACUTE ILLNESS 03/26/2013 Patient Education: Patient Medication Summary Completed 03/26/2013 Visit Plan: Supportive care. Rest, Fluids, Tylenol prn fever or bodyaches. Notify if worsening symptoms. Ceftin 12/19/2012 Appointment: Jessenia Francis WPtel: [address] [place] [address] ACUTE ILLNESS 12/19/2012 Patient Education: Patient Medication Summary Completed 12/19/2012 Appointment: Vikki Guaman WPtel: [address] [place] [address] BP CHECK 12/04/2012 Patient Education: Patient Medication Summary Completed 12/04/2012 Visit Plan: Continue increased dose of metoprolol Moniter BP at home BP check in 1wk Xanax refill to use prn 11/27/2012 Visit Plan: Continue increased dose of metoprolol Moniter BP at home BP check in 1wk 11/27/2012 Appointment: Vikki Guaman WPtel: [address] [place] [address] ER Follow UP 11/27/2012 Patient Education: Patient Medication Summary Completed 11/27/2012 Visit Plan: Restart flonase BID Use meclizine 25mg q HS Vestibular exercises Claritin 10mg q AM See ENT if doesn't resolve 10/04/2012 Appointment: Vikki Guaman WPtel: [address] [place] [address] ACUTE ILLNESS 10/04/2012 Patient Education: Patient Medication Summary Completed 10/04/2012 Visit Plan: Will continue to observ e 07/27/2012 Appointment: Vikki Guaman WPtel: [address] [place], [place] [phone] FOLLOW UP 07/27/2012 Patient Education: Patient [...] recheck. 07/14/2012 Appointment: Evelyn Santos WPtel: [address] [place], [place] [phone] ACUTE ILLNESS 07/14/2012 Patient Education: Patient Medication Summary Completed 07/14/2012 Visit Plan: Decrease caffeine intak e Check Bilateral Mammogram with US of left breast 06/08/2012 Appointment: Vikki Guaman WPtel: [address] [place] [address] ACUTE ILLNESS 06/08/2012 Patient Education: Patient Medication Summary Completed 06/08/2012 Appointment: Alisia Campbell WPtel: [address] [place], [place] [phone] appt scheduled 04/06 ACUTE ILLNESS 04/10/2012 Appointment: Vikki Guaman WPtel: [address] [place], [place] [phone] US LAB 02/23/2012 Patient Education: Patient Medication [...] T4, HbA1C 02/22/2012 Appointment: Vikki Guaman WPtel: [address] [place], [place] [phone] US FOLLOW UP 02/22/2012 Patient Education: Patient Medication Summary Completed 02/22/2012 Visit Plan: Continue carafate for 4 more weeks at current dose then decrease to BID for 2wks then q HS 12/28/2011 Appointment: Vikki Guamantel: [address] [place] [address] FOLLOW UP 12/28/2011 Patient Education: Patient Medication Summary Completed 12/28/2011 Visit Plan: Continue omeprazole Add Carafate 1gm po q AC Add daily probiotic 12/15/2011 Appointment: Vikki Guamantel: [address] [place] [address] ACUTE ILLNESS 12/15/2011 Patient Education: Patient Medication Summary Completed 12/15/2011 Appointment: Vikki Guamantel: [address] [place] [address] INJECTION 12/02/2011 Patient Education: Patient Medication Summary Completed 12/02/2011 Visit Plan: Diabetic Diet Accucheck s BID alternating times Hold onglyza and Januvia for now and continue diet and exercise and weight loss and moniter BS Discussed hypoglycemia and snack of peanut butter and crackers with juice or milk 09/21/2011 Appointment: Vikki Guamantel: [address] [place] [address] WORK IN 09/21/2011 Patient Education: Patient Medication Summary Completed 09/21/2011 Appointment: Vikki Guamantel: [address] [place], [place] [phone] UA 09/16/2011 Patient Education: Patient Medication Summary Completed 09/16/2011 Appointment: Vikki Guamantel: [address] [place] [address] LAB 09/15/2011 Patient Education: Patient Medication Summary Completed 09/15/2011 Visit Plan: Fasting lab to check CM P, Lipids, CBC, TSH, Free T4, HbA1C, Insulin level Hold Zocor for next 2wks 09/13/2011 Appointment: Vikki Guamantel: [address] [place] [address] ACUTE ILLNESS 09/13/2011 Patient Education: Patient Medication Summary Completed 09/13/2011 Visit Plan: Injection to Right SI j oint as above Pt will call in 3 days on pain Has PT starting in 2wks. 08/16/2011 Appointment: Vikki Guaman WPtel: [address] [place] [address] ACUTE ILLNESS 08/16/2011 Patient Education: Patient Medication Summary Completed 08/16/2011 Visit Plan: OMT done Start PT July n eed updated MRI if need to consider epidural Prednisone 08/03/2011 Appointment: Vikki Guaman WPtel: [address] [place] [address] OMT 08/03/2011 Patient Education: Patient Medication Summary Completed 08/03/2011 Visit Plan: Flexeril and Vimovo OMT done Daily stretches 07/26/2011 Appointment: Vikki Guaman WPtel: [address] [place] [address] ACUTE ILLNESS 07/26/2011 Patient Education: Patient Medication Summary Completed 07/26/2011 Visit Plan: OMT done Daily stretche s Moist heat or biofreeze Right SI joint injection Call in 1week Vimovo BID 06/28/2011 Appointment: Vikki Guaman WPtel: [address] [place] [address] ACUTE ILLNESS 06/28/2011 Patient Education: Patient Medication Summary Completed 06/28/2011 Appointment: Vikki Guaman WPtel: [address] [place] [address] US LAB 04/01/2011 Patient Education: Patient Medication Summary Completed 04/01/2011 Visit Plan: Decrease amlodopine to 1.25mg daily Schedule with Cardiology Fasting lab in AM 03/31/2011 Appointment: Vikki Guaman WPtel: [address] [place] [address] ACUTE ILLNESS 03/31/2011 Patient Education: Patient Medication Summary Completed 03/31/2011 Visit Plan: Saline nasal flushes pr n. Tylenol/Motrin prn headache. Notify if persists/symptoms worsening. Cerumen removal from ears as above 02/11/2011 Appointment: Vikki Guamantel: [address] [place] [address] ACUTE ILLNESS 02/11/2011 Patient Education: Patient Medication Summary Completed 02/11/2011 Appointment: Vikki Guaman WPtel: [address] [place] [address] US INJECTION 12/09/2010 Patient Education: Patient Medication Summary Completed 12/09/2010 Visit Plan: Continue vimovo for 1mo re week Increase Omeprazole to BID for 1mo then resume QD if stomach improved Vestibular exercises with meclizine q HS for next week 10/15/2010 Appointment: Vikki Guaman WPtel: [address] [place] [address] FOLLOW UP 10/15/2010 Patient Education: Patient Medication Summary Completed 10/15/2010 Visit Plan: Trial of Vimovo 50/200m g po BID Check UA 09/29/2010 Appointment: Vikki Guaman WPtel: [address] [place] [address] ACUTE ILLNESS 09/29/2010 Patient Education: Patient Medication Summary Completed 09/29/2010 Appointment: Vikki Guaman WPtel: [address] [place], [place] [phone] LAB 07/06/2010 Patient Education: Patient Medication Summary Completed 07/06/2010 Visit Plan: Saline nasal flushes pr n. Tylenol/Motrin prn headache. Notify if persists/symptoms worsening. Add Veramyst Increase Omeprazole to 20mg po BID 07/02/2010 Appointment: Vikki Guaman WPtel: [address] [place] [address] ACUTE ILLNESS 07/02/2010 Patient Education: Patient Medication Summary Completed 07/02/2010 Visit Plan: Injection to right SI j oint as above Continue Vimovo Daily stretches Pt will call at end of week to let us know how back is doing 04/06/2010 Appointment: Vikki Guaman WPtel: [address] [place], [place] [phone] FOLLOW UP 04/06/2010 Patient Education: Patient Medication Summary Completed 04/06/2010 Visit Plan: Toradol 30mg IM now x1 Vimovo 200/50 po BID Decrease Norvasc to 1/2 tablet daily Increase Lexaprol to 10mg QD 04/01/2010 Appointment: Vikki Guaman WPtel: [address] [place] [address] ACUTE ILLNESS 04/01/2010 Patient Education: Patient Medication Summary Completed 04/01/2010 Visit Plan: Nasocourt sample given. Pt. will notify if symptoms are worse on Tuesday. 01/22/2010 Appointment: Alisia Campbell WPtel: [address] [place] [address] ACUTE ILLNESS 01/22/2010 Patient Education: Patient Medication Summary Completed 01/22/2010 Appointment: Vikki Guaman WPtel: [address] [place], [place] [id number] US INJECTION 12/10/2009 Patient Education: Patient Medication Summary Completed 12/10/2009 Visit Plan: Cipro for UTI Cont Chaparro pro at 5mg QD Flu shot next week 12/02/2009 Appointment: Vikki Guaman WPtel: [address] [place], [place] [phone] [place] FOLLOW UP 12/02/2009 Patient Education: Patient Medication [...] with surgery 10/21/2009 Appointment: Vikki Guaman WPtel: [address] [place] [address] FOLLOW UP 10/21/2009 Patient Education: Patient Medication Summary Completed 10/21/2009 Visit Plan: B12 given Cont oral B12 and iron Fwup 1mo for B12 Proceed with hiatal hernia repair once card clearance 09/10/2009 Appointment: Vikki Guaman WPtel: [address] [place] [address] FOLLOW UP 09/10/2009 Patient Education: Patient Medication Summary Completed 09/10/2009 Visit Plan: No caffeine, no nicotin e, no mints, no late meals, elevate HOB 30 degrees Cont. with Nexium See Card to discuss Hiatal Hernia Repair B12 given 08/11/2009 Appointment: Vikki Guaman WPtel: [address] [place] [address] FOLLOW UP 08/11/2009 Patient Education: Patient Medication Summary Completed 08/11/2009 Appointment: Vikki Guaman WPtel: [address] [place] [address] US LAB 06/10/2009 Patient Education: Patient Medication Summary Completed 06/10/2009 Visit Plan: Check fasting lab in AM --CMP,Lipids, CBC, Vit D, TSH,FreeT4, B12 06/09/2009 Appointment: Vikki Guaman WPtel: [address] [place] [address] FOLLOW UP 06/09/2009 Patient Education: Patient Medication Summary Completed 06/09/2009 Referral: Edy Cheek WPtel: #[address] Referral Appointment Requested Referral: Edy Cheek WPtel: #[address] Referral Initiated Instructions Comment . ERx for [...]
--- OUTSIDE RECORDS SUMMARY | 2019-04-25 20:57 | XMS REPORT | Continuity of Care Document ---
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 6.7 g/dL 6.4-8.2 Serum or plasma albumin measurement (mass/volume) 4.0 g/dL 3.2-4.5 CALCIUM CORRECTED 9.3 mg/dL 8.5-10.1 Magnesium - 04/16/19 20:25 Magnesium 2.0 mg/dL 1.6-2.4 Myoglobin, serum - 04/16/19 20:25 Myoglobin, serum 52.2 ng/mL 10.0-92.0 Serum or plasma troponin i.cardiac measu rement (mass/volume) - 04/16/19 20:25 Serum or plasma troponin i.cardiac measurement (mass/v olume) < ng/mL <0.028 Serum or plasma lithium measurement (mol es/volume) - 04/16/19 20:25 BNP PT 322.6 pg/mL <100.0 PT panel in platelet poor plasma by coag ulation assay - 04/16/19 20:25 Prothrombin time (PT) in platelet poor plasma by coagu lation assay 12.7 s 12.2-14.7 INR in platelet poor plasma or blood by coagulation as say 0.9 0.8-1.4 Activated partial thromboplastin time (a PTT) in platelet poor plasma bycoagulation assay - 04/16/19 20:25 Activated partial thromboplastin time (a PTT) in platelet poor plasma bycoagulation assay 26 s 24-35 Encounters ACCT No. Visit Date/Time Discharge Status Pt. Type Provider Facility Loc./Unit Complaint 07/201503/19/2019 23:40:03 03/19/2019 23:59: 59 CLS Outpatient Vikki Guaman [id number] 04/16/2019 19:42:00 21:49:00 DIS Emergency CHAS GALLEGOS APRN [facility] ER BLOOD PRESSURE HIGH,HEA RT RACING [id number] 03/14/2019 09:54:00 23:59:59 CLS Outpatient VIKKI GUAMAN DO S [facility] RAD CERVICAL/THORAC IC PAIN [id number] 01/04/2019 00:14:00 23:59:59 CLS Preadmit VIKKI GUAMAN DO S [facility] CR3 WELLNESS [id number] 01/01/2019 14:46:00 00:01:00 DIS Outpatient DIEGO GUAMAN DOLINE S [facility] CR3 WELLNESS [id number] 11/15/2018 13:10:00 00:01:00 DIS Outpatient DIEGO GUAMAN DOLINE S [facility] CR3 WELLNESS [id number] 10/25/2018 13:07:00 00:01:00 DIS Outpatient DIEGO GUAMAN DOLINE S [facility] CR3 WELLNESS [id number] 09/20/2018 13:25:00 019 00:01:00 DIS Outpatient VIKKI GUAMAN DO S [facility] CR3 WELLNESS [id number] 03/14/2018 06:54:00 019 09:10:00 DIS Outpatient JIMENEZ PATRICK CHIN [facility] ENDO GERD/EPIGASTRIC ABD MATI N [id number] 03/09/2018 06:22:00 019 14:08:00 DIS Outpatient PATRICK JIMENEZ DO [facility] PREOP EGD [id number] 02/14/2018 13:28:00 018 23:59:59 CLS Outpatient VIKKI GUAMAN DO S [facility] RAD UPPER ABDOMINAL PAIN, BOWEL CHANGES [id number] 11/18/2017 16:21:00 018 20:15:00 DIS Emergency TRACI LOWERY MD [facility] ER NOT FEELING WELL/ABD PA IN [id number] 09/05/2017 11:15:00 018 13:09:00 DIS Outpatient LESVIA GALLAGHER APRN [facility] REHAB ARTHRITIS AND S TENOSIS [id number] 07/09/2017 09:13:00 018 23:59:59 CLS Outpatient VIKKI GUAMAN DO S [facility] RAD R CERVICAL PAIN WITH R ARM RADICULOPATHY [id number] 10/14/2016 14:45:00 017 15:31:00 DIS Outpatient VIKKI GUAMAN DO S [facility] REHAB LOW BACK PAIN; LUMBAR DDD [id number] 05/28/2016 09:08:00 017 23:59:59 CLS Outpatient DIEGO GUAMAN DOLINE S [facility] RAD SIMON MASTALGIA [id number] 05/16/2016 15:19:00 017 19:29:00 DIS Emergency ISIDRA DUPREE DO [facility] ER FALL/COLLAR BONE INJ/R SIDE PAIN [id number] 12/19/2014 13:58:00 015 17:00:00 DIS Outpatient PATRICK JIMENEZ DO [facility] FAMILY HX COLON CA, QUE SIONABLE BARRETTS [id number] 06/19/2014 14:57:00 015 15:33:00 DIS Outpatient VIKKI GUAMAN DO [facility] REHAB THORACIC BACK P AIN / SPASM [id number] 11/23/2012 16:15:00 013 18:56:00 DIS Emergency MARY LOVETT, GUILLERMO Atkins [facility] ER HEADACHE,EAR PA IN [id number] 12/16/2014 05:44:00 Document Registration [id number] 05/15/2014 19:30:00 Document Registration [id number] 06/19/2012 08:27:00 Document Registration [id number] 09/23/2011 12:55:00 Document Registration
== END 2019-04-16 21:49 | disposition home or self-care (01) ==
LOC: EDUNIT# 19:40 → ER 19:42
DX: F41.9 Anxiety disorder, unspecified (principal); I10 Essential (primary) hypertension; I25.2 Old myocardial infarction; I25.10 Atherosclerotic heart disease of native coronary artery without angina pectoris; E78.00 Pure hypercholesterolemia, unspecified; K21.9 Gastro-esophageal reflux disease without esophagitis; E66.9 Obesity, unspecified; Z95.9 Presence of cardiac and vascular implant and graft, unspecified; Z79.82 Long term (current) use of aspirin; Z88.8 Allergy status to other drugs, medicaments and biological substances; Z68.39 Body mass index [BMI] 39.0-39.9, adult
CPT/HCPCS: 36415; 71045; 80053; 83735; 83874; 83880; 84484; 85025; 85610; 85730; 93005; 93041

== ENCOUNTER 2019-05-18 13:15 | Outpatient (RCR) | payer MEDICARE, OTHER ==
[~2019-05-18 13:15] MED LIST changes: +FAMO10TA PO; -[UNRECOGNIZED DRUG - CODE] PO
== END 2019-06-06 | disposition home or self-care (01) ==
LOC: CR3 13:15
PROVIDERS: ATTEND Family Medicine
DX: Z29.8 Encounter for other specified prophylactic measures (principal)

== ENCOUNTER 2019-12-05 05:40 | Outpatient (CLI) | payer MEDICARE, OTHER ==
[~2019-12-05] VITALS: Ht 157.5 cm; Wt 95.0 kg
[~2019-12-05 05:40] MED LIST changes: +ALPR.25T PO; -ALPR0.254 PO
[2019-12-05] MEDS ORDERED: CALC-676 PO (10:31)
[2019-12-05] MEDS ORDERED: MELA1TAB15 PO (10:31)
[2019-12-05] MEDS ORDERED: UBID100C17 PO (10:31)
[2019-12-05] MEDS ORDERED: METO100T12 PO (10:31)
[2019-12-05] MEDS ORDERED: OMEP40CA27 PO (10:31)
== END 2019-12-05 10:35 | disposition home or self-care (01) ==
LOC: PREOP 05:40
PROVIDERS: ATTEND Specialist
DX: Z01.818 Encounter for other preprocedural examination (principal)

== ENCOUNTER 2019-12-07 06:59 | Day surgery (SDC) | payer MEDICARE, OTHER ==
[~2019-12-07] VITALS: Ht 157.5 cm; Wt 95.0 kg
[~2019-12-07 06:59] MED LIST changes: +CALC-676 PO; +METO100T12 PO; +OMEP40CA27 PO
[2019-12-07 07:15] VITALS: BP 175/69
[2019-12-07] MEDS ORDERED: LIDOCAINE PF 1% 2 ML VIAL IR PRN (07:15)
[2019-12-07] MEDS ORDERED: POVIDONE (BETADINE) OPHTH SOLN 5% 30 ML OP ONE (07:15)
[2019-12-07] MEDS ORDERED: MOXIFLOXACIN OPHTH SOLN 5 MG/ML 0.3 ML SYRINGE OP ONE (07:15)
[2019-12-07] MEDS ORDERED: TIMOLOL MALEATE 0.5% 5 ML (TIMOPTIC) BTL OU PRN (07:15)
[2019-12-07] MEDS: TETRACAINE 0.5% OPHTH SOLN 4 ML BTL (SINGLE DOSE ONLY) OU PRN ×4 (07:24→07:45)
[2019-12-07] MEDS: PHENYLEPHRINE 10% OPHTH (NEO-SYN) 5 ML BTL OU SCH ×3 (07:33→07:45)
[2019-12-07] MEDS: CYCLOPENTOLATE 1% (CYCLOGYL) 2 ML DROPS OP SCH ×3 (07:33→07:45)
[2019-12-07] MEDS ORDERED: MIDAZOLAM 2 MG/2 ML (VERSED) VIAL ONE (07:46)
--- NOTE | 2019-12-07 07:59 | Ophthalmologist Pre-Op Note ---
Pre-Operative Progress Note H&P Reviewed The H&P was reviewed, patient examined and no changes noted. Date H&P Reviewed: Dec 07, 2019 Time H&P Reviewed: 07:59 Pre-Op Dx Cataract, Left Eye SHANNAN ALONSO MD Dec 07, 2019 07:59
--- NOTE | 2019-12-07 08:21 | Ophthalmology Operative Report ---
Cataract removal/placement IOL PREOPERATIVE DIAGNOSIS: Cataract Left Eye POSTOPERATIVE DIAGNOSIS: Cataract Left Eye PROCEDURE: Cataract removal and placement of posterior chamber implant, left eye SURGEON: Sameer Alonso ANESTHESIA: Topical with sedation COMPLICATIONS: None ESTIMATED BLOOD LOSS: Minimal DESCRIPTION OF PROCEDURE: After proper informed consent was obtained, the patient, a 79 female, was taken to the Operating Room and the left eye was anesthetized with tetracaine. The left eye was then prepped and draped in the usual manner. A wire lid speculum was placed. A paracentesis was made at the left hand position. Preservative free lidocaine was injected into the anterior chamber followed by viscoelastic. A clear corneal incision was made in the temporal position. A capsulorrhexis was preformed and the central nuclear and cortical material were removed. The posterior capsule was polished and an William 22.5 AU00T0 was placed into the capsular bag. The residual viscoelastic was aspirated and balanced saline solution was injected into the anterior chamber. Moxifloxacin was injected into the anterior chamber. The wound was checked and found to be water tight. The patient tolerated the procedure well without complications. SAMEER ALONSO MD Dec 07, 2019 08:21
[2019-12-07 08:30] VITALS: BP 161/79
[2019-12-07] MEDS ORDERED: acetaZOLAMIDE ER 500 MG CAP (DIAMOX SEQUELS) PO ONE (08:30)
--- NOTE | 2019-12-07 11:17 | Anesthesia-General Post-Op ---
MAC Patient Condition Mental Status/LOC: Same as Preop Cardiovascular: Satisfactory Nausea/Vomiting: Absent Respiratory: Satisfactory Pain: Controlled Complications: Absent Post Op Complications Complications None Follow Up Care/Instructions Patient Instructions None needed. Anesthesiology Discharge Order Discharge Order Patient is doing well, no complaints, stable vital signs, no apparent adverse anesthesia problems. No complications reported per nursing. MOY LOVING HELICOPTER SPECIALIST Dec 07, 2019 11:17
== END 2019-12-07 08:30 | disposition home or self-care (01) ==
LOC: SDC 06:59
PROVIDERS: ATTEND Specialist
DX: H25.12 Age-related nuclear cataract, left eye (principal); I10 Essential (primary) hypertension; I25.2 Old myocardial infarction; F41.9 Anxiety disorder, unspecified; F32.9 Major depressive disorder, single episode, unspecified; G47.00 Insomnia, unspecified; E78.00 Pure hypercholesterolemia, unspecified; E78.5 Hyperlipidemia, unspecified; K21.9 Gastro-esophageal reflux disease without esophagitis; E66.9 Obesity, unspecified; Z68.38 Body mass index [BMI] 38.0-38.9, adult; Z79.899 Other long term (current) drug therapy; Z87.19 Personal history of other diseases of the digestive system; Z95.1 Presence of aortocoronary bypass graft; Z96.651 Presence of right artificial knee joint
CPT/HCPCS: 66984; V2632

== ENCOUNTER 2019-12-28 07:00 | Day surgery (SDC) | payer MEDICARE, OTHER ==
[~2019-12-28] VITALS: Ht 157 cm; Wt 95.0 kg
[2019-12-28 07:00] VITALS: BP 191/85
[2019-12-28] MEDS: TETRACAINE 0.5% OPHTH SOLN 4 ML BTL (SINGLE DOSE ONLY) OU PRN ×4 (07:09→07:41)
[2019-12-28] MEDS ORDERED: POVIDONE (BETADINE) OPHTH SOLN 5% 30 ML OP ONE (07:15)
[2019-12-28] MEDS ORDERED: MOXIFLOXACIN OPHTH SOLN 5 MG/ML 0.3 ML SYRINGE OP ONE (07:15)
[2019-12-28] MEDS ORDERED: LIDOCAINE PF 1% 2 ML VIAL IR PRN (07:15)
[2019-12-28] MEDS ORDERED: TIMOLOL MALEATE 0.5% 5 ML (TIMOPTIC) BTL OU PRN (07:15)
[2019-12-28] MEDS: PHENYLEPHRINE 10% OPHTH (NEO-SYN) 5 ML BTL OU SCH ×3 (07:26→07:41)
[2019-12-28] MEDS: TROPICAMIDE 1% OPH SOLN (MYDRIACYL) 15 ML BTL OP SCH ×3 (07:26→07:41)
[2019-12-28] MEDS ORDERED: MIDAZOLAM 2 MG/2 ML (VERSED) VIAL ONE (07:48)
--- NOTE | 2019-12-28 08:01 | Ophthalmologist Pre-Op Note ---
Pre-Operative Progress Note H&P Reviewed The H&P was reviewed, patient examined and no changes noted. Date H&P Reviewed: Dec 28, 2019 Time H&P Reviewed: 08:01 Pre-Op Dx Cataract, Right Eye SHANNAN ALONSO MD Dec 28, 2019 08:01
--- NOTE | 2019-12-28 08:22 | Ophthalmology Operative Report ---
Cataract removal/placement IOL PREOPERATIVE DIAGNOSIS: Cataract Right Eye POSTOPERATIVE DIAGNOSIS: Cataract Right Eye PROCEDURE: Cataract removal and placement of posterior chamber implant, right eye SURGEON: Sameer Alonso ANESTHESIA: Topical with sedation COMPLICATIONS: None ESTIMATED BLOOD LOSS: Minimal DESCRIPTION OF PROCEDURE: After proper informed consent was obtained, the patient, a 79 female, was taken to the Operating Room and the right eye was anesthetized with tetracaine. The right eye was then prepped and draped in the usual manner. A wire lid speculum was placed. A paracentesis was made at the left hand position. Preservative free lidocaine was injected into the anterior chamber followed by viscoelastic. A clear corneal incision was made in the temporal position. A capsulorrhexis was preformed and the central nuclear and cortical material were removed. The posterior capsule was polished and William 23.0 AU00T0 IOL was placed into the capsular bag. The residual viscoelastic was aspirated and balanced saline solution was injected into the anterior chamber. Moxifloxacin was injected into the anterior chamber. The wound was checked and found to be water tight. The patient tolerated the procedure well without complications. SAMEER ALNOSO MD Dec 28, 2019 08:22
[2019-12-28 08:30] VITALS: BP 154/103
[2019-12-28] MEDS ORDERED: acetaZOLAMIDE ER 500 MG CAP (DIAMOX SEQUELS) PO ONE (08:30)
--- NOTE | 2019-12-28 13:53 | Anesthesia-General Post-Op ---
MAC Patient Condition Mental Status/LOC: Same as Preop Cardiovascular: Satisfactory Nausea/Vomiting: Absent Respiratory: Satisfactory Pain: Controlled Complications: Absent Post Op Complications Complications None Follow Up Care/Instructions Patient Instructions None needed. Anesthesiology Discharge Order Discharge Order Patient is doing well, no complaints, stable vital signs, no apparent adverse anesthesia problems. No complications reported per nursing. MOY LOVING CRNA Dec 28, 2019 13:53
== END 2019-12-28 08:30 | disposition home or self-care (01) ==
LOC: SDC 07:00
PROVIDERS: ATTEND Specialist
DX: H25.11 Age-related nuclear cataract, right eye (principal); I10 Essential (primary) hypertension; K21.9 Gastro-esophageal reflux disease without esophagitis; E66.9 Obesity, unspecified; F41.9 Anxiety disorder, unspecified; F32.9 Major depressive disorder, single episode, unspecified; G47.00 Insomnia, unspecified; E78.00 Pure hypercholesterolemia, unspecified; M19.90 Unspecified osteoarthritis, unspecified site; Z79.899 Other long term (current) drug therapy; Z88.8 Allergy status to other drugs, medicaments and biological substances; Z95.1 Presence of aortocoronary bypass graft; Z90.710 Acquired absence of both cervix and uterus; Z80.0 Family history of malignant neoplasm of digestive organs
CPT/HCPCS: 66984; V2632

== ENCOUNTER 2020-05-26 10:40 | Outpatient (RCR) | payer MEDICARE, OTHER ==
[~2020-05-26 10:40] MED LIST changes: -ISOS30TA3 PO; +ISOS30TA82 PO
== END 2020-06-18 | disposition home or self-care (01) ==
LOC: CR3 10:40
PROVIDERS: ATTEND Family Medicine
DX: Z29.8 Encounter for other specified prophylactic measures (principal)

== ENCOUNTER 2020-06-30 21:15 | Emergency (ER) | payer MEDICARE, OTHER ==
[~2020-06-30] VITALS: Ht 157 cm; Wt 95.0 kg
--- NOTE | 2020-06-30 21:37 | ED Cardiac General ---
History of Present Illness General Stated Complaint: PALPITATIONS Source: patient Exam Limitations: no limitations (CHAS GALLEGOS APRN) History of Present Illness Date Seen by Provider: Jun 30, 2020 Time Seen by Provider: 21:34 Initial Comments To ER with reports of palpitations that began about an hour before coming here. She has no history of atrial fibrillation. She took her evening dose of one half of a Valium tablet but still feels anxious and a sensation of palpitations. History of CABG in 2006. She follows with cardiology from [facility]. Timing/Duration: 1-3 hours Severity: moderate Location: central Prior CP/Workup: no prior chest pain NTG SL CLINICAL NURSING DIRECTOR: No ASA po CLINICAL NURSING DIRECTOR: No (CHAS GALLEGOS APRN) Allergies and Home Medications Allergies Coded Allergies: quinine (Verified Allergy, Mild, RASH, 03/09/18) Home Medications ALPRAZolam 0.25 Mg Tablet, 0.25 MG PO BID, (Reported) Acetaminophen 500 Mg Tablet, 500 MG PO HS, (Reported) Aspirin 81 Mg Tab.chew, 81 MG PO DAILY, (Reported) Calcium Carbonate/Vitamin D3 1 Each Tablet, 1 EACH PO DAILY, (Reported) Isosorbide Mononitrate 30 Mg Tab.er.24h, 30 MG PO HS, (Reported) Melatonin/Pyridoxine 1 Each Tablet, 1 EACH PO HS, (Reported) Metoprolol Tartrate 100 Mg Tablet, 50 MG PO BID, (Reported) Multivitamin 1 Each Capsule, 1 EACH PO DAILY, (Reported) [place] 3 Polyunsat Fatty Acids 1,000 Mg Cap, 1,000 MG PO DAILY, (Reported) Omeprazole 40 Mg Capsule.dr, 40 MG PO DAILY, (Reported) Simvastatin 40 Mg Tablet, 40 MG PO HS, (Reported) Ubidecarenone 100 Mg Capsule, 100 MG PO DAILY, (Reported) Patient Home Medication List Home Medication List Reviewed: Yes (CHAS GALLEGOS APRN) Review of Systems Review of Systems Constitutional: see HPI EENTM: No Symptoms Reported Respiratory: No Symptoms Reported Cardiovascular: See HPI; Denies Chest Pain; Irregular Heart Rate, Palpitations Gastrointestinal: See HPI, Abdominal Pain Genitourinary: No Symptoms Reported Musculoskeletal: no symptoms reported Skin: no symptoms reported Psychiatric/Neurological: No Symptoms Reported Endocrine: No Symptoms Reported Hematologic/Lymphatic: No Symptoms Reported (CHAS GALLEGOS APRN) Past Vhypuyq-Gasyku-Jmuqjq Hx Patient Social History 2nd Hand Smoke Exposure: No Recent Hopitalizations: No (CHAS GALLEGOS APRN) Immunizations Up To Date Date of Pneumonia Vaccine: Feb 09, 2010 Date of Influenza Vaccine: Dec 12, 2017 (CHAS GALLEGOS APRN) Seasonal Allergies Seasonal Allergies: No (CHAS GALLEGOS APRN) Past Medical History Surgeries: Yes Abdominal, Appendectomy, Cardiac, CABG, Gallbladder, Hysterectomy, Joint Replacement, Orthopedic Respiratory: No Cardiac: Yes (CLEAN HEART CATH-DEC 2017) Coronary Artery Disease, Heart Attack, High Cholesterol, Hypertension, Peripheral Vascular Neurological: No Reproductive Disorders: No 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, Menopausal Sexually Transmitted Disease: No Genitourinary: Yes UTI-Chronic Gastrointestinal: Yes (SPASTIC COLON/HIATAL HERNIA/GI BLEED-ULCERS, gastric polyp) Gastroesophageal Reflux, Gastrointestinal Bleed, Diverticulosis, Hiatal Hernia, Ulcer Musculoskeletal: Yes (RIGHT KNEE REPLACEMENT) Arthritis Endocrine: Yes ("DIET CONTROLLED", OBESITY) Diabetes, Non-Insulin dep HEENT: No Cancer: No Psychosocial: Yes Anxiety Integumentary: No Blood Disorders: No Adverse Reaction/Blood Tranf: No (CHAS GALLEGOS APRN) Physical Exam Vital Signs Vital Signs - First Documented 06/30/20 21:20 Temp 36.3 Pulse 68 Resp 22 B/P (MAP) 191/81 (117) O2 Delivery Room Air (TRACI LOWERY) Vital Signs Capillary Refill : (CHAS GALLEGOS APRN) Height, Weight, BMI Height: 5'2.00" Weight: 210lbs. 6.0oz. 95.253997kw; 39.00 BMI Method:Stated General Appearance: No Apparent Distress, WD/WN, Anxious, Other (She reports that she still feels a little anxious and does appear so. Heart rate is narrow complex rate of 72 regular no ectopy. She does report sensation of palpitations at this time.) Neck: Full Range of Motion, Normal Inspection Respiratory: Lungs Clear, Normal Breath Sounds, No Accessory Muscle Use, No Respiratory Distress Cardiovascular: Regular Rate, Rhythm, Normal Peripheral Pulses Gastrointestinal: Normal Bowel Sounds, Non Tender, Soft Neurologic/Psychiatric: Alert, Oriented x3 Skin: Normal Color, Warm/Dry (CHAS GALLEGOS APRN) Progress/Results/Core Measures Results/Orders Lab Results Laboratory Tests Test 06/30/20 21:27 Range/Units White Blood Count 8.9 4.3-11.0 10^3/uL Red Blood Count 3.89 3.80-5.11 10^6/uL Hemoglobin 11.9 11.5-16.0 g/dL Hematocrit 37 35-52 % Mean Corpuscular Volume 96 80-99 fL Mean Corpuscular Hemoglobin 31 25-34 pg Mean Corpuscular Hemoglobin Concent 32 32-36 g/dL Red Cell Distribution Width 13.1 10.0-14.5 % Platelet Count 191 130-400 10^3/uL Mean Platelet Volume 10.2 9.0-12.2 fL Immature Granulocyte % (Auto) 0 % Neutrophils (%) (Auto) 36 L 42-75 % Lymphocytes (%) (Auto) 51 H 12-44 % Monocytes (%) (Auto) 9 0-12 % Eosinophils (%) (Auto) 3 0-10 % Basophils (%) (Auto) 1 0-10 % Neutrophils # (Auto) 3.2 1.8-7.8 10^3/uL Lymphocytes # (Auto) 4.5 H 1.0-4.0 10^3/uL Monocytes # (Auto) 0.8 0.0-1.0 10^3/uL Eosinophils # (Auto) 0.3 0.0-0.3 10^3/uL Basophils # (Auto) 0.1 0.0-0.1 10^3/uL Immature Granulocyte # (Auto) 0.0 0.0-0.1 10^3/uL Prothrombin Time 13.8 12.2-14.7 SEC INR Comment 1.0 0.8-1.4 Activated Partial Thromboplast Time 26 24-35 SEC D-Dimer 1.16 H 0.00-0.49 UG/ML Sodium Level 138 135-145 MMOL/L Potassium Level 4.0 3.6-5.0 MMOL/L Chloride Level 105 98-107 MMOL/L Carbon Dioxide Level 21 21-32 MMOL/L Anion Gap 12 5-14 MMOL/L Blood Urea Nitrogen 18 7-18 MG/DL Creatinine 1.18 0.60-1.30 MG/DL Estimat Glomerular Filtration Rate 44 BUN/Creatinine Ratio 15 Glucose Level 103 70-105 MG/DL Calcium Level 9.6 8.5-10.1 MG/DL Corrected Calcium 9.5 8.5-10.1 MG/DL Magnesium Level 2.0 1.6-2.4 MG/DL Total Bilirubin 0.4 0.1-1.0 MG/DL Aspartate Amino Transf (AST/SGOT) 21 5-34 U/L Alanine Aminotransferase (ALT/SGPT) 14 0-55 U/L Alkaline Phosphatase 81 40-136 U/L Myoglobin 65.0 10.0-92.0 NG/ML Troponin I < 0.028 <0.028 NG/ML B-Type Natriuretic Peptide 231.6 H <100.0 PG/ML Total Protein 7.0 6.4-8.2 GM/DL Albumin 4.1 3.2-4.5 GM/DL (TRACI LOWERY) Medications Given in ED Current Medications Medications Dose Ordered Sig/Rocio Route Start Time Stop Time Status Last Admin Dose Admin Alprazolam 0.25 mg ONCE ONCE PO 06/30/20 21:45 06/30/20 21:46 DC 06/30/20 21:49 0.25 MG Aspirin 243 mg ONCE ONCE PO 06/30/20 21:45 06/30/20 21:46 DC 06/30/20 21:49 243 MG (TRACI LOWERY) Vital Signs/I&O 06/30/20 21:20 Temp 36.3 Pulse 68 Resp 22 B/P (MAP) 191/81 (117) O2 Delivery Room Air (TRACI LOWERY) Progress Progress Note : Time: 23:07 Progress Note The patient is asymptomatic and no longer having the pounding in her chest. The pounding in her chest was going on during the EKG as well as she has had normal telemetry. Do not suspect this is related to cardiac dysrhythmia or coronary disease. The Xanax made her symptoms go away. We have encouraged her to follow-up with her primary care provider and discuss long-term strategies for anxiety management. She seems to be having more anxiety issues lately according to her son. She was on Lexapro 14 years ago after her heart attack and she said that helped her for about 6 to 12 months before she got off of it because she did not feel she needed it anymore. (TRACI LOWERY) Departure Impression Primary Impression: Anxiety attack Additional Impression: Palpitations Disposition: 01 HOME, SELF-CARE Condition: Stable Departure-Patient Inst. Decision time for Depature: 22:59 (TRACI LOWERY) Referrals: SHAHZAD GALVIN DO (PCP/Family) Primary Care Physician Patient Instructions: Panic Disorder (DC), Palpitations (DC) Add. Discharge Instructions: Plan to follow-up with your primary care provider and discuss your palpitations and anxiety management. If you wish to follow-up with your ethnoarchaeology professor for your palpitations this is reasonable by calling them for an appointment in the next week or 2. Do not hesitate to return to the ER promptly if you have chest pain, shortness of air or other worrisome symptoms. Copy Copies To 1: SHAHZAD GALVIN PETER J APRN Jun 30, 2020 21:37 TRACI LOWERY Jun 30, 2020 23:10
[2020-06-30 21:41] LABS: BASOPHILS # (AUTO) 0.1 10^3/uL (0.0-0.1); BASOPHILS % (AUTO) 1 % (0-10); EOSINOPHILS # (AUTO) 0.3 10^3/uL (0.0-0.3); EOSINOPHILS % (AUTO) 3 % (0-10); HEMATOCRIT 37 % (35-52); HEMOGLOBIN 11.9 g/dL (11.5-16.0); LYMPHOCYTES # (AUTO) 4.5 10^3/uL (1.0-4.0); LYMPHOCYTES % (AUTO) 51 % (12-44); MEAN CORPUSCULAR HEMOGLOBIN 31 pg (25-34); MEAN CORPUSCULAR HGB CONC 32 g/dL (32-36); MEAN CORPUSCULAR VOLUME 96 fL (80-99); MEAN PLATELET VOLUME 10.2 fL (9.0-12.2); MONOCYTES # (AUTO) 0.8 10^3/uL (0.0-1.0); MONOCYTES % (AUTO) 9 % (0-12); NEUTROPHILS # (AUTO) 3.2 10^3/uL (1.8-7.8); NEUTROPHILS % (AUTO) 36 % (42-75); PLATELET COUNT 191 10^3/uL (130-400); WHITE BLOOD COUNT 8.9 10^3/uL (4.3-11.0)
[2020-06-30] MEDS ORDERED: ASPIRIN 81 MG CHEW (CHILDREN'S ASA) PO ONE (21:45)
[2020-06-30] MEDS ORDERED: LORazepam INJ 2 MG/ML (ATIVAN) VIAL IVP PRN (21:45)
[2020-06-30] MEDS ORDERED: ALPRAZolam 0.25 MG (XANAX) TAB PO ONE (21:45)
[2020-06-30 21:53] LABS: FIBRIN DEGRADATION PRODUCTS 1.16 UG/ML (0.00-0.49); PROTHROMBIN TIME PATIENT 13.8 SEC (12.2-14.7)
[2020-06-30 21:56] LABS: ALBUMIN 4.1 GM/DL (3.2-4.5); BILIRUBIN,TOTAL 0.4 MG/DL (0.1-1.0); CALCIUM 9.6 MG/DL (8.5-10.1); CREATININE SERUM 1.18 MG/DL (0.60-1.30)
--- NOTE | 2020-06-30 21:56 | Diagnostic Imaging Report ---
INDICATION: Chest pain, bypass. FINDINGS: Sternal wires midline. Heart size stable. Some trace linear scarring or atelectasis on the left, unchanged. No pneumonia, edema, effusion or pneumothorax. IMPRESSION: Stable chronic findings. Dictated by: Dictated on workstation # [id number]
[2020-06-30 23:15] VITALS: BP 161/83
== END 2020-06-30 23:16 | disposition home or self-care (01) ==
LOC: EDUNIT# 21:15 → ER 21:17
DX: F41.9 Anxiety disorder, unspecified (principal); R00.2 Palpitations; I25.2 Old myocardial infarction; I10 Essential (primary) hypertension; E78.00 Pure hypercholesterolemia, unspecified; K21.9 Gastro-esophageal reflux disease without esophagitis; E11.9 Type 2 diabetes mellitus without complications; Z88.8 Allergy status to other drugs, medicaments and biological substances; Z79.82 Long term (current) use of aspirin
CPT/HCPCS: 36415; 71045; 80053; 83735; 83874; 83880; 84484; 85025; 85379; 85610; 85730; 93005; 93041

== ENCOUNTER 2020-10-30 09:12 | Outpatient (CLI) | payer MEDICARE, OTHER ==
[~2020-10-30 09:12] MED LIST changes: -OMEP40CA27 PO; +OMEP40CA6 PO
[2020-10-30] MEDS ORDERED: diphenhydrAMINE 50 MG/ML INJ (BENADRYL) IV PRN (09:15)
[2020-10-30] MEDS ORDERED: EPINEPHrine INJECTION 1 MG/ML AMP IM PRN (09:15)
[2020-10-30] MEDS ORDERED: CASIRIVIMAB/IMDEVIMAB 1,200 MG in NS (IVPB) 250 ML IV ONE (09:15)
[2020-10-30] MEDS ORDERED: ONDANSETRON 4 MG/2 ML (SDV) Z0FRAN IV PRN (09:15)
[2020-10-30] MEDS ORDERED: ACETAMINOPHEN 500 MG TAB (TYLENOL) PO PRN (09:15)
[2020-10-30 09:23] VITALS: BP 155/68
[2020-10-30 09:25] VITALS: BP 155/68
[2020-10-30 10:20] VITALS: BP 115/65
== END 2020-10-30 10:40 | disposition home or self-care (01) ==
LOC: INFUSION 09:12
PROVIDERS: ATTEND Nurse Practitioner Family
DX: Z23 Encounter for immunization (principal); U07.1 COVID-19

== ENCOUNTER → 2021-01-13 | Outpatient (CLI) | payer MEDICARE, OTHER ==
--- NOTE | 2021-01-13 16:15 | Diagnostic Imaging Report ---
INDICATION: Cough, bronchitis, short of breath. FINDINGS: Two views of the chest show mild cardiomegaly with normal vascularity. There is perihilar discoid atelectasis. No infiltrates or effusions are seen. There are changes of prior CABG. IMPRESSION: There is cardiomegaly with no failure. No acute abnormality is seen with improved aeration of the lung bases compared to a prior study from 11/05/2009. Dictated by: Dictated on workstation # [id number]
== END ==
LOC: RAD 15:21
PROVIDERS: ATTEND Family Medicine
DX: I51.7 Cardiomegaly (principal); J40 Bronchitis, not specified as acute or chronic
CPT/HCPCS: 71046

== ENCOUNTER 2021-04-23 13:29 | Emergency (ER) | payer MEDICARE, OTHER ==
[~2021-04-23] VITALS: Ht 157.2 cm; Wt 95.0 kg
[2021-04-23] MEDS ORDERED: CATHETER FLUSH 10 ML SYR IV PRN ×2 (14:00→14:45)
[2021-04-23] MEDS ORDERED: NS IV 500 ML 500 ML IV ONE (14:00)
[2021-04-23] MEDS ORDERED: NS 100 ML (IVPB) BAG IV ONE ×2 (14:00→14:45)
[2021-04-23] MEDS ORDERED: IOHEXOL 350 MG/ML 100 ML (OMNIPAQUE 350) VIAL IV ONE ×2 (14:00→14:45)
[2021-04-23] MEDS ORDERED: fentaNYL INJ 100 MCG/2 ML AMP IVP ONE (14:00)
[2021-04-23] MEDS ORDERED: HOLD METFORMIN - RECEIVED CONTRAST 20 ML VIAL IV SCH ×2 (14:00→14:45)
--- NOTE | 2021-04-23 14:05 | ED Abdominal Pain ---
General Stated Complaint: ABD PAIN,OSMAN,BACK ACHES Source of Information: Patient Exam Limitations: No Limitations History of Present Illness Date Seen by Provider: Apr 23, 2021 Time Seen by Provider: 13:18 Initial Comments Patient to the ER with her son and chief complaint that since yesterday she started having some right lower quadrant abdominal pain radiating down her groin. A couple days prior to that she developed a rash which she went to Dr. Guaman's office and was described as hives and put on 5 mg daily prednisone. She states that that made her blood pressure go up so she did not take it again after yesterday morning. She says normally her blood pressure is well controlled on her medications. Her pain started last night and is now an 8 or 9 out of 10. She did take a Tylenol this morning and that did not do much to help her pain an hour and a half ago. She had a bowel movement today and 2 bowel movements yesterday all of which were normal, formed. She is not having dysu geraldo. She has been drinking more fluids and took a laxative to see if that would help her with her pain but it did not. She has a history of cholecystectomy and hiatal hernia surgical repair. She also has a history of CABG [address] Brown in primary care by Dr. Guaman. No history of mesenteric ischemia. She is not on blood thinners and does not have a history of diabetes. She describes pain radiating from her right side low back around to her right lower quadrant abdomen and down into her right groin as well as down her right buttock to her posterior leg. No history of trauma. She took an anxiety tablet prior to coming in. Allergies and Home Medications Allergies Coded Allergies: prednisone (Unverified Allergy, Mild, 10/30/20) quinine (Verified Allergy, Mild, RASH, 03/09/18) Patient Home Medication List Home Medication List Reviewed: Yes ALPRAZolam (Xanax Tablet) 0.25 Mg Tablet, 0.25 MG PO BID, (Reported) Entered as Reported by: FREEDOM QUAN on 03/09/18 1405 Acetaminophen (Tylenol Extra Strength) 500 Mg Tablet, 500 MG PO HS, (Reported) Entered as Reported by: NESS CROOK on 05/16/16 1616 Aspirin (Aspirin) 81 Mg Tab.chew, 81 MG PO DAILY, (Reported) Entered as Reported by: FREEDOM QUAN on 03/09/18 1405 Calcium Carbonate/Vitamin D3 (Calcium 500 + Vit D 200 Caplet) 1 Each Tablet, 1 EACH PO DAILY, (Reported) Entered as Reported by: OG SMITH on 12/05/19 1031 Isosorbide Mononitrate (Isosorbide Mononitrate ER) 30 Mg Tab.er.24h, 30 MG PO HS, (Reported) Entered as Reported by: FREEDOM QUAN on 03/09/18 140 Melatonin/Pyridoxine (Melatonin 5 mg Tablet) 1 Each Tablet, 1 EACH PO HS, (Reported) Entered as Reported by: OG SMITH on 12/05/19 1031 Metoprolol Tartrate (Metoprolol Tartrate) 100 Mg Tablet, 50 MG PO BID, (Reported) Entered as Reported by: OG SMITH on 12/05/19 103 Multivitamin (Multivitamins) 1 Each Capsule, 1 EACH PO DAILY, (Reported) Entered as Reported by: FREEDOM QUAN on 03/09/18 140 [place] 3 Polyunsat Fatty Acids (Fish Oil 1,000 mg Capsule) 1,000 Mg Cap, 1,000 MG PO DAILY, (Reported) Entered as Reported by: FREEDOM QUAN on 03/09/18 140 Omeprazole (Omeprazole) 40 Mg Capsule.dr, 40 MG PO DAILY, (Reported) Entered as Reported by: OG SMITH on 12/05/19 1031 Simvastatin (Simvastatin) 40 Mg Tablet, 40 MG PO HS, (Reported) Entered as Reported by: FREEDOM QUAN on 03/09/18 140 Ubidecarenone (Coq-10) 100 Mg Capsule, 100 MG PO DAILY, (Reported) Entered as Reported by: OG SMITH on 12/05/19 1031 Review of Systems Review of Systems Constitutional: No chills, No diaphoresis EENTM: No Blurred Vision, No Double Vision Respiratory: Denies Cough, Denies Shortness of Air Cardiovascular: Denies Chest Pain, Denies Lightheadedness Gastrointestinal: Denies Constipated, Denies Diarrhea Genitourinary: Denies Discharge, Denies Drainage Musculoskeletal: back pain; No joint pain, No joint swelling, No neck pain Skin: change in color; No dryness, No pruritus; rash All Other Systems Reviewed Negative Unless Noted: Yes Past Fttuqkz-Henjap-Yuyloz Hx Patient Social History Tobacco Use?: No Use of E-Cig and/or Vaping dev: No Seasonal Allergies Seasonal Allergies: No Past Medical History Surgeries: Yes Abdominal, Appendectomy, Cardiac, CABG, Gallbladder, Hysterectomy, Joint Replacement, Orthopedic Respiratory: No Cardiac: Yes (CLEAN HEART CATH-DEC 2017) Coronary Artery Disease, Heart Attack, High Cholesterol, Hypertension, Peripheral Vascular Neurological: No Reproductive Disorders: No 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, 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 Sexually Transmitted Disease: No Genitourinary: Yes UTI-Chronic Gastrointestinal: Yes (SPASTIC COLON/HIATAL HERNIA/GI BLEED-ULCERS, gastric polyp) Gastroesophageal Reflux, Gastrointestinal Bleed, Diverticulosis, Hiatal Hernia, Ulcer Musculoskeletal: Yes (RIGHT KNEE REPLACEMENT) Arthritis Endocrine: Yes ("DIET CONTROLLED", OBESITY) Diabetes, Non-Insulin dep HEENT: No Cancer: No Psychosocial: Yes Anxiety Integumentary: No Blood Disorders: No Adverse Reaction/Blood Tranf: No Physical Exam Vital Signs Vital Signs - First Documented 04/23/21 13:32 Pulse 73 Resp 18 B/P (MAP) 184/90 (121) Pulse Ox 97 Capillary Refill : Height/Weight/BMI Height: 5'2.00" Weight: 210lbs. 6.0oz. 95.262515vg; 38.00 BMI Method:Stated General Appearance: mild distress, obese HEENT: PERRL/EOMI, pharynx normal Neck: full range of motion, supple, normal inspection Respiratory: lungs clear, normal breath sounds, no respiratory distress, no accessory muscle use Cardiovascular: normal peripheral pulses, regular rate, rhythm (70) Peripheral Pulses: 2+ Radial Pulses (R), 2+ Radial Pulses (L) Gastrointestinal: normal bowel sounds, soft, tenderness (Very mild tenderness over the right lower quadrant abdomen.) Extremities: normal range of motion, normal capillary refill Back: normal inspection, other (Exquisite tenderness reproducible over the right side of the L5-S1 facet joint.) Neurologic/Psychiatric: no motor/sensory deficits, alert, normal mood/affect, oriented x 3 Skin: warm/dry, rash (There is a reddish-brown hyperpigmented round patches over the trunk and bilateral lower extremities nonblanchable.) Focused Exam Lactate Level 04/23/21 14:10: Lactic Acid Level 1.14 Lactic Acid Level Laboratory Tests Test 04/23/21 14:10 Lactic Acid Level 1.14 MMOL/L (0.50-2.00) Progress/Results/Core Measures Results/Orders Lab Results Laboratory Tests Test 04/23/21 14:10 Range/Units White Blood Count 7.8 4.3-11.0 10^3/uL Red Blood Count 4.05 3.80-5.11 10^6/uL Hemoglobin 12.0 11.5-16.0 g/dL Hematocrit 37 35-52 % Mean Corpuscular Volume 92 80-99 fL Mean Corpuscular Hemoglobin 30 25-34 pg Mean Corpuscular Hemoglobin Concent 32 32-36 g/dL Red Cell Distribution Width 13.3 10.0-14.5 % Platelet Count 198 130-400 10^3/uL Mean Platelet Volume 10.2 9.0-12.2 fL Immature Granulocyte % (Auto) 0 % Neutrophils (%) (Auto) 47 42-75 % Lymphocytes (%) (Auto) 39 12-44 % Monocytes (%) (Auto) 11 0-12 % Eosinophils (%) (Auto) 2 0-10 % Basophils (%) (Auto) 1 0-10 % Neutrophils # (Auto) 3.7 1.8-7.8 10^3/uL Lymphocytes # (Auto) 3.0 1.0-4.0 10^3/uL Monocytes # (Auto) 0.8 0.0-1.0 10^3/uL Eosinophils # (Auto) 0.2 0.0-0.3 10^3/uL Basophils # (Auto) 0.1 0.0-0.1 10^3/uL Immature Granulocyte # (Auto) 0.0 0.0-0.1 10^3/uL Sodium Level 138 135-145 MMOL/L Potassium Level 4.1 3.6-5.0 MMOL/L Chloride Level 106 98-107 MMOL/L Carbon Dioxide Level 20 L 21-32 MMOL/L Anion Gap 12 5-14 MMOL/L Blood Urea Nitrogen 16 7-18 MG/DL Creatinine 0.95 0.60-1.30 MG/DL Estimat Glomerular Filtration Rate 60 BUN/Creatinine Ratio 17 Glucose Level 94 70-105 MG/DL Lactic Acid Level 1.14 0.50-2.00 MMOL/L Calcium Level 9.3 8.5-10.1 MG/DL Corrected Calcium 9.3 8.5-10.1 MG/DL Total Bilirubin 0.5 0.1-1.0 MG/DL Aspartate Amino Transf (AST/SGOT) 23 5-34 U/L Alanine Aminotransferase (ALT/SGPT) 16 0-55 U/L Alkaline Phosphatase 69 40-136 U/L C-Reactive Protein High Sensitivity 0.12 0.00-0.50 MG/DL Total Protein 6.9 6.4-8.2 GM/DL Albumin 4.0 3.2-4.5 GM/DL My Orders Orders - TRACI LOWERY Cbc With Automated Diff (04/23/21 13:51) Comprehensive Metabolic Panel (04/23/21 13:51) Hs C Reactive Protein (04/23/21 13:51) Lactic Acid Analyzer (04/23/21 13:51) Ua Culture If Indicated (04/23/21 13:51) Ed Iv/Invasive Line Start (04/23/21 13:51) Ns Iv 500 Ml (Sodium Chloride 0.9%) (04/23/21 14:00) Ct Abd/Pelv W (Appendicitis) (04/23/21 13:51) Fentanyl Inj (Sublimaze Injection) (04/23/21 14:00) Iohexol Injection (Omnipaque 350 Mg/Ml 1 (04/23/21 14:00) Received Contrast (Hold Metformin- Contr (04/23/21 14:00) Sodium Chloride Flush (Catheter Flush Sy (04/23/21 14:00) Ns (Ivpb) (Sodium Chloride 0.9% Ivpb Bag (04/23/21 14:00) Received Contrast (Hold Metformin- Contr (04/23/21 14:45) Sodium Chloride Flush (Catheter Flush Sy (04/23/21 14:45) Medications Given in ED Current Medications Medications Dose Ordered Sig/Rocio Route Start Time Stop Time Status Last Admin Dose Admin Fentanyl Citrate 25 mcg ONCE ONCE IVP 04/23/21 14:00 04/23/21 14:01 DC 04/23/21 14:19 25 MCG Iohexol 100 ml ONCE ONCE IV 04/23/21 14:00 04/23/21 14:01 DC 04/23/21 14:55 100 ML Sodium Chloride 10 ml NEEDED PRN IV 04/23/21 14:00 04/23/21 14:56 DC 04/23/21 14:55 10 ML Sodium Chloride 500 ml @ 0 mls/hr Q0M ONCE IV 04/23/21 14:00 04/23/21 14:01 DC 04/23/21 14:19 500 MLS/HR Vital Signs/I&O 04/23/21 13:32 Pulse 73 Resp 18 B/P (MAP) 184/90 (121) Pulse Ox 97 Progress Progress Note #1: Time: 14:06 Progress Note Residual rash that the patient states is getting better does not catherine. She is not having any itching. She has quite a bit of pain coming around from the right back so a compressive neuropathy or shingles is possible. We would also be concerned about ischemic mesentery, appendicitis or other condition. She has aseptic vital signs. Plan to get a CT of her abdomen and pelvis and check some labs including a lactate. Progress Note #2: Time: 15:33 Progress Note Pain is significantly improved down to a 4 5 out of 10 after fentanyl. We are concerned she may have a compressive neuropathy causing her sciatic pain. She has a strong history of sciatica in the same area. Her pain in her front is not reflected in her blood work or her CT. It could be a precursor to shingles or some other compressive neuropathy so we will provide her with naproxen, acyclovir and tramadol for breakthrough pain. Return precautions discussed, questions answered and follow-up encouraged. Diagnostic Imaging Diagonstic Imaging: CT Plain Films/CT/US/NM/MRI: abdomen, pelvis Comments [facility] [place], [place] NAME: NA JORGENSEN [facility] REC#: [id number] PT STATUS: REG ER : 1940 PHYSICIAN: TRACI LOWERY MD ADMIT DATE: 04/23/21/ER Draft Date of Exam:04/23/21 CT ABD/PELV W (APPENDICITIS) CT ABD/PELV W (APPENDICITIS) TECHNIQUE: Multiple contiguous axial images were obtained through the abdomen and pelvis after administration of intravenous contrast. All CT scans use one or more of the following dose optimizing techniques: automated exposure control, MA and/or KvP adjustment based on patient size and exam type or iterative reconstruction. INDICATION: Right lower quadrant pain COMPARISON: CT abdomen pelvis of 02/14/2018 FINDINGS: Lower chest: The lung bases are clear. No pericardial or pleural effusion. Peritoneum: No free intraperitoneal air or fluid. Liver and biliary system: The liver is normal. Cholecystectomy. No biliary duct dilatation. Spleen and Pancreas: Spleen is normal. The pancreas enhances normally without mass lesion or peripancreatic inflammatory changes. Adrenals: Normal. tract: The kidneys enhance normally without suspicious mass or obstruction. Urinary bladder is distended without wall thickening. No renal or ureteral stones. Hysterectomy. No adnexal mass. GI tract: No change in moderate-sized hiatal hernia. Stomach is decompressed. Right lower quadrant small bowel diverticulosis without diverticulitis. No bowel obstruction. No pericolonic inflammatory changes. Appendix is not seen and could be surgically absent. Sigmoid colon diverticulosis without diverticulitis. Vasculature and Lymph nodes: Normal caliber aorta. No abdominal or pelvic lymphadenopathy. Musculoskeletal: No concerning osseous lesion. IMPRESSION: 1. No acute obstructive or inflammatory process. 2. The appendix is not seen and could be surgically absent. If appendectomy has not been performed, there are no secondary features that would suggest acute appendicitis. 3. No urinary tract calculi. Dictated on workstation # [id number] Dict: 04/23/21 1502 Trans: 04/23/21 1509 [facility] [id number] Interpreted by: WILLIAM CASE MD Electronically signed by: Reviewed: Reviewed by Me Departure Impression Primary Impression: Lumbago with sciatica, right side Qualified Codes: M54.41 - Lumbago with sciatica, right side Additional Impressions: Shingles Qualified Codes: B02.9 - Zoster without complications Rash and nonspecific skin eruption Disposition: 01 HOME, SELF-CARE Condition: Stable Departure-Patient Inst. Decision time for Depature: 15:34 Referrals: SHAHZAD GUAMAN DO (PCP/Family) Primary Care Physician Patient Instructions: Sciatica ED, Shingles (DC), Skin Rash ED Add. Discharge Instructions: I encourage you to start taking the naproxen 1 tablet twice a day for the next 1 to 2 weeks until the pain goes away. You can use topical creams such as capsaicin oil, icy hot, Biofreeze etc. For breakthrough pain you can use Tylenol 1000 mg every 8 hours. If you are still having significant pain keeping you from being functional then use 1 tablet of tramadol every 6 hours as needed. Tramadol may cause drowsiness and constipation. Colace or similar stool softeners are recommended to prevent this. On the off chance that this is a prodromal phase of shingles I would recommend you start acyclovir 5 times a day for a week. If you are having tremendous, intractable pain, vomiting, fever or other worrisome symptoms then please return to the ER or follow-up with your doctor for persistent symptoms for more than 2 weeks. Scripts Tramadol HCl (Tramadol HCl) 50 Mg Tablet 50 MG PO Q6H for Breakthrough Pain, #15 TAB 0 Refills Prov: TRACI LOWERY 04/23/21 Naproxen (Naprosyn) 500 Mg Tablet 500 MG PO BID for 14 Days, #30 TAB 0 Refills Prov: TRACI LOWERY 04/23/21 Acyclovir (Acyclovir) 800 Mg Tablet 800 MG PO 5XD for 7 Days, #35 TAB 0 Refills Prov: TRACI LOWERY 04/23/21 Copy Copies To 1: SHAHZAD GUAMAN TITUS J Apr 23, 2021 14:05
[2021-04-23 14:18] LABS: BASOPHILS # (AUTO) 0.1 10^3/uL (0.0-0.1); BASOPHILS % (AUTO) 1 % (0-10); EOSINOPHILS # (AUTO) 0.2 10^3/uL (0.0-0.3); EOSINOPHILS % (AUTO) 2 % (0-10); HEMATOCRIT 37 % (35-52); LYMPHOCYTES % (AUTO) 39 % (12-44); MEAN CORPUSCULAR HEMOGLOBIN 30 pg (25-34); MEAN CORPUSCULAR HGB CONC 32 g/dL (32-36); MEAN CORPUSCULAR VOLUME 92 fL (80-99); MEAN PLATELET VOLUME 10.2 fL (9.0-12.2); MONOCYTES # (AUTO) 0.8 10^3/uL (0.0-1.0); MONOCYTES % (AUTO) 11 % (0-12); NEUTROPHILS # (AUTO) 3.7 10^3/uL (1.8-7.8); NEUTROPHILS % (AUTO) 47 % (42-75); PLATELET COUNT 198 10^3/uL (130-400); WHITE BLOOD COUNT 7.8 10^3/uL (4.3-11.0)
[2021-04-23 14:31] LABS: POTASSIUM 4.1 MMOL/L (3.6-5.0)
[2021-04-23 14:32] LABS: CALCIUM 9.3 MG/DL (8.5-10.1)
[2021-04-23 14:34] LABS: TOTAL PROTEIN 6.9 GM/DL (6.4-8.2)
[2021-04-23 14:35] LABS: BILIRUBIN,TOTAL 0.5 MG/DL (0.1-1.0)
[2021-04-23 14:37] LABS: CREATININE SERUM 0.95 MG/DL (0.60-1.30)
--- NOTE | 2021-04-23 15:10 | Diagnostic Imaging Report ---
CT ABD/PELV W (APPENDICITIS) TECHNIQUE: Multiple contiguous axial images were obtained through the abdomen and pelvis after administration of intravenous contrast. All CT scans use one or more of the following dose optimizing techniques: automated exposure control, MA and/or KvP adjustment based on patient size and exam type or iterative reconstruction. INDICATION: Right lower quadrant pain COMPARISON: CT abdomen pelvis of 02/14/2018 FINDINGS: Lower chest: The lung bases are clear. No pericardial or pleural effusion. Peritoneum: No free intraperitoneal air or fluid. Liver and biliary system: The liver is normal. Cholecystectomy. No biliary duct dilatation. Spleen and Pancreas: Spleen is normal. The pancreas enhances normally without mass lesion or peripancreatic inflammatory changes. Adrenals: Normal. tract: The kidneys enhance normally without suspicious mass or obstruction. Urinary bladder is distended without wall thickening. No renal or ureteral stones. Hysterectomy. No adnexal mass. GI tract: No change in moderate-sized hiatal hernia. Stomach is decompressed. Right lower quadrant small bowel diverticulosis without diverticulitis. No bowel obstruction. No pericolonic inflammatory changes. Appendix is not seen and could be surgically absent. Sigmoid colon diverticulosis without diverticulitis. Vasculature and Lymph nodes: Normal caliber aorta. No abdominal or pelvic lymphadenopathy. Musculoskeletal: No concerning osseous lesion. IMPRESSION: 1. No acute obstructive or inflammatory process. 2. The appendix is not seen and could be surgically absent. If appendectomy has not been performed, there are no secondary features that would suggest acute appendicitis. 3. No urinary tract calculi. Dictated by: Dictated on workstation # [id number]
[2021-04-23 15:20] LABS: BILIRUBIN,URINE NEGATIVE (NEGATIVE); CLARITY,URINE CLEAR; COLOR,URINE YELLOW; GLUCOSE, URINE (UA) NEGATIVE (NEGATIVE); KETONES,URINE NEGATIVE (NEGATIVE); LEUKOCYTE ESTERASE ,URINE 2+ (NEGATIVE); NITRITE,URINE POSITIVE (NEGATIVE); PH,URINE 6.5 (5-9); PROTEIN,URINE NEGATIVE (NEGATIVE)
[2021-04-23 15:30] LABS: BACTERIA,URINE FEW /HPF; WBC,URINE 25-50 /HPF
[2021-04-23 15:31] LABS: SQUAMOUS EPITHELIAL CELL,UR 0-2 /HPF
[2021-04-23] MEDS ORDERED: TRAM50TA3 PO (15:38)
[2021-04-23] MEDS ORDERED: NAPR-1071 PO (15:38)
[2021-04-23] MEDS ORDERED: ACYC-112 PO (15:38)
[2021-04-23 15:47] VITALS: BP 152/75
[2021-04-30] MEDS ORDERED: CEPH500T PO (14:09)
== END 2021-04-23 15:46 | disposition home or self-care (01) ==
LOC: EDUNIT# 13:29 → ER 13:30
DX: M54.41 Lumbago with sciatica, right side (principal); B02.9 Zoster without complications; R21 Rash and other nonspecific skin eruption; E66.9 Obesity, unspecified; I25.2 Old myocardial infarction; I10 Essential (primary) hypertension; E78.00 Pure hypercholesterolemia, unspecified; I25.10 Atherosclerotic heart disease of native coronary artery without angina pectoris; K21.9 Gastro-esophageal reflux disease without esophagitis; F41.9 Anxiety disorder, unspecified; E11.9 Type 2 diabetes mellitus without complications; Z68.38 Body mass index [BMI] 38.0-38.9, adult; Z79.82 Long term (current) use of aspirin; Z79.899 Other long term (current) drug therapy
CPT/HCPCS: 36415; 74177; 80053; 81000; 83605; 85025; 86141; 87077; 87088; 87186; 96361; 96374

== ENCOUNTER 2021-11-16 08:23 | Outpatient (RCR) | payer MEDICARE, OTHER ==
[~2021-11-16 08:23] MED LIST changes: +ACYC-112 PO; +CEPH500T PO; +NAPR-1071 PO; +TRAM50TA3 PO
== END 2021-12-04 | disposition home or self-care (01) ==
PROVIDERS: ATTEND Family Medicine
DX: M54.16 Radiculopathy, lumbar region (principal); I10 Essential (primary) hypertension; Z95.1 Presence of aortocoronary bypass graft

== ENCOUNTER 2022-12-16 13:46 | Outpatient (RCR) | payer MEDICARE, OTHER ==
[~2022-12-16 13:46] MED LIST changes: -UBID300C PO; +UBID300C2 PO
== END 2022-12-16 14:30 | disposition home or self-care (01) ==
PROVIDERS: ATTEND Family Medicine
DX: R53.1 Weakness (principal)